=== PATIENT | female | born 1955 | race Caucasian/White ===

== ENCOUNTER → 2016-04-28 | Outpatient (REF) | payer OTHER ==
[~2016-04-28] MED LIST: /ADVA50050; /ADVA50050 INH; /ALEN70TA; /ALEN70TA PO; /CELE20CA PO; /DULO30CA; /DULO30CA PO; /ESCI10TA PO; /ESOM40CA PO; ADVAIR; ADVAIR500; ALBU17IN INH; ALBU83IN; AMBIEN10 PO; AMIT10TA2; AMITRIP100 PO; AMITRIP50 PO; ASP81; ASPI1TAB PO; ASPI81TA3 PO; ATOR40TA PO; AUGM875T27 PO; BACL10TA2; BACLOFEN10 PO; BACTROCREA TOPICALLY; BACTROOINT TOPICALLY; BREO1INH3 INH; CALCARB WITH VIT D; CALCWAF4; CEFTIN500 PO; CELE-19 PO; CENESTIN; CENESTIN PO; COLA100C PO; COLA100C2 PO; CYCL10TA PO; CYMB60CA3 PO; CYMBALTA30 PO; DISDOL; DRIS50002 PO; DRISDOL PO; DRISDOL50; EFFEXORXL3 PO; ESCI10TA2 PO; ESTRACE PV; FERR325T PO; FERROUS325 PO; FLAGYL500 PO; FLEXERIL PO; FOLI1TAB2 PO; FORTAMET PO; FOSA70TA PO; FOSAMAX70; GABA-283 PO; GABA800T PO; GLUC500T; GLUC500T PO; GLUCOPXR5; GLUCULTRA TOPICAL; HIBICLENS TOPICAL; INDA25TAB PO; INDAPAMIDE PO; IRON28TA; JANU100T PO; JANUVIA PO; KEFLEX500 PO; KLON0.5T; KLON0.5T PO; KLONOPIN PO; KLONOPIN05 PO; KLOR20TA PO; LANCMIS; LASIX20 PO; LEVA0.314 INH; LEVA31IN INH; LEVO25TA2 PO; LEVO500T32 PO; LEVO75TA4 PO; LEXAPRO10 PO; LIDODERM TOPICAL; LODINE500 PO; LOZOL25; LOZOL25 PO; LUNESTA3 PO; LYRI200C; LYRI200C PO; LYRICA100 PO; MACROBID PO; MAG-400T7 PO; MAGN400T5 PO; MEDR8TAB; METF850T PO; METH-29 PO; METH4TAB6 PO; MOTRIN400 PO; MULTIVIT; MULTTAB4 PO; NEURONTIN6 PO; NEXI20CA PO; NEXIUM40 PO; NITR100C37 PO; NORT25CA2 PO; NYAM10003 EXT; NYST100024 TOP; NYSTATINP TOP; OXYC10TA12; OXYC1SOL PO; OXYCODONE PO; PERC5TAB8 PO; POTA20TA PO; POTA20TA4 PO; POTASSI20 PO; PRAV40TA PO; PREDNISON5; PULM0.5S INH; PYRI1TAB PO; ROSE HIPS PO; ROZE8TAB PO; ROZE8TAB9 PO; ROZEREM PO; TAMIFLU PO; TAPAZOLE PO; TRAZ100T; TRAZ100T PO; TRAZ100T2 PO; TRAZ100T4 PO; TRAZODON10 PO; TYLE325T5 PO; ULTRAM50 PO; VICODIN PO; VICODIN-ES PO; VIOXX125 PO; VITA500T; VITAMIN C PO; VITAMINC; XANAX0.25 PO; XOPEAER; ZOCOR10 PO; ZOVI5CRE5 TOP; [UNRECOGNIZED DRUG - CODE] INH; [UNRECOGNIZED DRUG - CODE] INH; [UNRECOGNIZED DRUG - CODE] PO; [UNRECOGNIZED DRUG - OTHER] PO; indapamide; medrol PO
[2016-04-28 12:42] LABS: BASO # 0.1 K/mm3 (0.0-0.2); BASO % 0.6 % (0.0-1.0); EOS # 0.3 K/mm3 (0.0-0.50); EOS % 3.1 % (0.0-3.0); LARGE UNSTAINED CELL # 0.2 K/mm3 (0.0-0.4); LARGE UNSTAINED CELL % 1.7 % (0.0-4.0); LYMPH # 2.9 K/mm3 (1.5-4.5); LYMPH % 31.4 % (24.0-44.0); MEAN CORPUSCULAR HEMOGLOBIN 29.4 pg (27.0-33.0); MEAN CORPUSCULAR HGB CONC 32.3 g/dl (32.0-36.5); MONO # 0.4 K/mm3 (0.0-0.8); MONO % 4.5 % (0.0-5.0); NEUTROPHILS # 5.4 K/mm3 (1.8-7.7); NEUTROPHILS % 58.8 % (36.0-66.0); PLATELET COUNT, AUTOMATED 355 k/mm3 (150-450); WHITE BLOOD COUNT 9.2 K/mm3 (4.0-10.0)
[2016-04-28 13:01] LABS: ALBUMIN 3.9 GM/DL (3.2-5.2); ALBUMIN/GLOBULIN RATIO 1.05 (1.00-1.93); ALKALINE PHOSPHATASE 107 U/L (45-117); ALT/SGPT 15 U/L (12-78); ANION GAP 10 MEQ/L (8-16); AST/SGOT 9 U/L (15-37); BILIRUBIN,TOTAL 0.6 MG/DL (0.2-1.0); BLOOD UREA NITROGEN 14 MG/DL (7-18); CARBON DIOXIDE LEVEL 27 MEQ/L (21-32); CHLORIDE LEVEL 101 MEQ/L (98-107); CREATININE FOR GFR 0.89 MG/DL (0.55-1.02); GLOMERULAR FILTRATION RATE > 60.0 (>51); GLUCOSE, FASTING 137 MG/DL (70-105); POTASSIUM SERUM 4.4 MEQ/L (3.5-5.1); SODIUM LEVEL 138 MEQ/L (136-145); TOTAL PROTEIN 7.6 GM/DL (6.4-8.2)
== END ==
LOC: M SFHCPLAZ 11:45
PROVIDERS: ATTEND Family Medicine
DX: N39.0 Urinary tract infection, site not specified (principal)

== ENCOUNTER → 2016-04-29 | Outpatient (REF) | payer OTHER | LOC: M SFHCPLAZ 16:54 | PROVIDERS: ATTEND Family Medicine | DX: N39.0 Urinary tract infection, site not specified (principal) ==

== ENCOUNTER → 2016-05-18 | Outpatient (CLI) | payer OTHER ==
[~2016-05-18] MED LIST changes: +E-Z PAQUE 60% w/v SUSP 355ML BOTTLE As Ordered ONE; +E-Z-GAS II EFFERVESCENT PACKET (SODIUM BICARB./CITRIC ACID/SIMETHICONE) As Ordered ONE; +E-Z-HD 98% w/w 340GM SUSP BTL As Ordered ONE
--- NOTE | 2016-05-18 16:47 | REP ---
UPPER GI, AIR CONTRAST AND SMALL BOWEL FOLLOW THROUGH: The procedure was performed under the direct supervision of Dr. Vinson. The images were reviewed with Dr. Vinson. 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 The intestinal gas pattern is nonspecific. There are surgical clips noted in the right upper quadrant. Liquid barium and gas-producing granules were given in the erect position as well as liquid barium in the prone oblique position in order to perform a double contrast upper GI examination. Additionally, liquid barium was given at the end of the examination in order to perform a small bowel follow through. The oral and pharyngeal stages of deglutition are unremarkable. Esophageal transport is prompt and efficient and there is no esophagitis, stricture or mucosal ring. There is a sliding type hiatal hernia present. There is gastroesophageal reflux demonstrated to the level of the thoracic inlet. The stomach farley are normally outlined. The rugal folds are smooth and regular. There is no gastritis, neoplasm or ulcer disease. The duodenal farley are normally outlined. The mucosal folds are smooth and regular. There is no duodenitis, pancreatitis, peptic ulcer disease or neoplasm. The visualized portion of the proximal small bowel appears normal in course and caliber. The barium column was followed through the small bowel to the level of the terminal ileum. Small bowel transit time is approximately 2 hours and 30 minutes. During fluoroscopy, gentle palpation shows all loops are freely movable and pliable. There are no fixed or angulated loops. The small bowel mucosal pattern is normal in course and caliber. There is no transition to suggest a partial small bowel obstruction. Spot filming of the terminal ileum shows it to be unremarkable. IMPRESSION: There is a sliding type hiatal hernia present. There is gastroesophageal reflux demonstrated to the level of the thoracic inlet. Otherwise, unremarkable double contrast upper GI and small bowel follow through examination. 3 minutes and 14 seconds of fluoroscopy time was utilized for this procedure. Reviewed by SERENA Solorzano 05/19/2016 08:32 AEdited and Signed by Jameel Vinson MD 05/19/2016 06:13 P
== END ==
LOC: M RAD 08:39
PROVIDERS: ATTEND Family Medicine
DX: K21.9 Gastro-esophageal reflux disease without esophagitis (principal); K44.9 Diaphragmatic hernia without obstruction or gangrene

== ENCOUNTER → 2016-06-07 | Outpatient (CLI) | payer OTHER ==
[~2016-06-07] MED LIST changes: -COLA100C PO; +COLA100C3 PO; -E-Z PAQUE 60% w/v SUSP 355ML BOTTLE As Ordered ONE; -E-Z-GAS II EFFERVESCENT PACKET (SODIUM BICARB./CITRIC ACID/SIMETHICONE) As Ordered ONE; -E-Z-HD 98% w/w 340GM SUSP BTL As Ordered ONE
--- NOTE | 2016-06-09 14:38 | SLEEPCENT ---
DATE OF STUDY: 06/09/2016 ORDERING PROVIDER: Andrea Wadsworth DO Nocturnal polysomnography was performed for titration of pressure therapy in this patient with a clinical history of obstructive sleep apnea syndrome confirmed by home testing revealing a respiratory event index of 10. For testing, a Respironics ComfortGel mask of petite size was used. 4 cm of water pressure were applied to the circuit, and the lights were extinguished. 6 hours and 33 minutes of data were reviewed. There were 305 minutes of sleep identified. Sleep latency was prolonged at 54 minutes. Rapid eye movement (REM) sleep was not achieved. Sleep architecture showed poor progression. Overall sleep efficiency was 78.8%. The patient's electrocardiogram (EKG) showed a sinus rhythm with occasional PVCs. Average heart rate 65 beats per minute. Electroencephalogram (EEG) showed coarsening in background. No focal events were identified. Normal waveforms were seen for awake and sleep. Respiratory events were palliated with continuous positive airway pressure (CPAP) at a pressure of +5. Hypoventilatory oxygen desaturations prompted the addition of supplemental oxygen. Best sleep was seen on CPAP at a pressure of 5 with 2 liters of oxygen bled through the system. Some limb activity was noted over the course of the study, as was some snoring. Limb movement arousal index was 2.8, and oxygen saturations were normal with the addition of supplemental oxygen. IMPRESSION: Obstructive sleep apnea syndrome (G47.33). RECOMMENDATION: Nightly use of pressure therapy 5 cm of water with 2 liters of oxygen bled through the circuit.
== END ==
LOC: M SLEEP 20:00
PROVIDERS: ATTEND Internal Medicine Pulmonary Disease
DX: G47.33 Obstructive sleep apnea (adult) (pediatric) (principal)

== ENCOUNTER → 2016-06-15 | Outpatient (CLI) | payer OTHER | LOC: M RAD 11:49 | PROVIDERS: ATTEND Family Medicine | DX: Z53.8 Procedure and treatment not carried out for other reasons (principal) ==

== ENCOUNTER → 2016-09-09 | Outpatient (REF) | payer OTHER ==
[~2016-09-09] MED LIST changes: +ALB2.5NEB INH; +AMBI5TAB PO; -ATOR40TA PO; +ATOR40TA75 PO; -CELE-19 PO; +CELE1CAP4 PO; -COLA100C3 PO; +COLA100C5 PO; +CYCL5TAB PO; +DULO30CA PO; +FERR1TAB8 PO; -FOLI1TAB2 PO; +FOLI1TAB4 PO; +KEFL500C17 PO; +LEVO500T3 PO; -LEVO500T32 PO; +LEXA1TAB PO; +MEDR1TAB PO; +METF850T4 PO; +METH4TAB28 PO; -METH4TAB6 PO; -NITR100C37 PO; +NITR100C39 PO; -NYST100024 TOP; +NYST1POW9 TOP; +OXYC1SOL3 PO; +PYRI1TAB5 PO; +ROSU40TA PO; +ROZE8TAB16 PO; -ROZE8TAB9 PO; +TRAZ-136 PO; -TRAZ100T4 PO; +VOLT1GEL15 TD; +XARE20TA PO
[2016-09-09 13:32] LABS: ALBUMIN 3.7 GM/DL (3.2-5.2); ALBUMIN/GLOBULIN RATIO 0.93 (1.00-1.93); ALKALINE PHOSPHATASE 134 U/L (45-117); ALT/SGPT 30 U/L (12-78); ANION GAP 9 MEQ/L (8-16); AST/SGOT 15 U/L (15-37); BILIRUBIN,TOTAL 0.7 MG/DL (0.2-1.0); BLOOD UREA NITROGEN 13 MG/DL (7-18); CALCIUM LEVEL 9.5 MG/DL (8.8-10.2); CARBON DIOXIDE LEVEL 31 MEQ/L (21-32); CHLORIDE LEVEL 97 MEQ/L (98-107); CHOLESTEROL LEVEL 278 MG/DL (<200); CREATININE FOR GFR 0.84 MG/DL (0.55-1.02); FREE T4 0.98 NG/DL (0.76-1.46); GLOMERULAR FILTRATION RATE > 60.0 (>45); GLUCOSE, FASTING 153 MG/DL (80-110); POTASSIUM SERUM 3.5 MEQ/L (3.5-5.1); SODIUM LEVEL 137 MEQ/L (136-145); TOTAL PROTEIN 7.7 GM/DL (6.4-8.2); TRIGLYCERIDES LEVEL 138 MG/DL (<150)
== END ==
LOC: M SFHCPLAZ 10:02
PROVIDERS: ATTEND Family Medicine
DX: E11.9 Type 2 diabetes mellitus without complications (principal)

== ENCOUNTER → 2016-10-04 | Outpatient (REF) | payer OTHER ==
[2016-10-04 15:56] LABS: URIC ACID 4.2 MG/DL (2.6-6.0)
== END ==
LOC: M LABDRAW1 13:08
PROVIDERS: ATTEND Orthopaedic Surgery
DX: M25.532 Pain in left wrist (principal); M79.642 Pain in left hand

== ENCOUNTER → 2016-10-20 | Outpatient (CLI) | payer OTHER ==
--- NOTE | 2016-10-20 13:12 | REPMRS ---
Patient History The patient states she has not had a clinical breast exam in over a year. Patient is postmenopausal. Family history of breast cancer in 2 sisters at age 50 or over, prostate cancer in paternal uncle at age 50 or over, and unknown cancer in paternal uncle at age 50 or over. Benign excisional biopsy of the left breast, 1988. Digital Mammo Screening Bilat: October 20, 2016 - Exam #: [id number] Bilateral CC and MLO view(s) were taken. Technologist: Brielle Simmons, Technologist Prior study comparison: May 30, 2013, digital mammo diagnostic bilateral performed at [facility]. August 03, 2012, left breast digital mammo diagnostic unilateral performed at [facility]. FINDINGS: The breast tissue is heterogeneously dense. This may lower the sensitivity of mammography. There has been no change in the appearance of the mammogram from the prior studies. There is a moderate amount of residual fibroglandular tissue which is fairly symmetric. There is no interval development of dominant mass, areas of architectural distortion, or clustered microcalcification typical of malignancy. ASSESSMENT: BI-RADS/ACR category 1 mammogram. Negative. Recommendation Routine screening mammogram in 1 year (for women over age 40). This mammogram was interpreted with the aid of an FDA-approved computer-aided dectection system. Electronically Signed By: Mariano Moses MD 10/20/16 [id number]
== END ==
LOC: M RAD 11:13
PROVIDERS: ATTEND Family Medicine
DX: Z12.31 Encounter for screening mammogram for malignant neoplasm of breast (principal); Z80.3 Family history of malignant neoplasm of breast; Z78.0 Asymptomatic menopausal state

== ENCOUNTER 2016-12-28 11:01 | Emergency (ER) | payer OTHER ==
[~2016-12-28] VITALS: Ht 167.6 cm; Wt 102.3 kg
[~2016-12-28 11:01] MED LIST changes: -ALB2.5NEB INH; -AMBI5TAB PO; -CYCL5TAB PO; -DULO30CA PO; -KEFL500C17 PO; -LEXA1TAB PO; -MEDR1TAB PO; -PYRI1TAB5 PO; -ROSU40TA PO; -VOLT1GEL15 TD; -XARE20TA PO
[2016-12-28] MEDS ORDERED: ALB2.5NEB INH (11:29)
[2016-12-28] MEDS ORDERED: AMBI5TAB PO (11:29)
[2016-12-28] MEDS ORDERED: MEDR1TAB PO (11:29)
[2016-12-28] MEDS ORDERED: LEXA1TAB PO (11:29)
[2016-12-28] MEDS ORDERED: VOLT1GEL15 TD (11:29)
[2016-12-28] MEDS ORDERED: CYCL5TAB PO (11:29)
[2016-12-28] MEDS ORDERED: XARE20TA PO (11:29)
[2016-12-28] MEDS ORDERED: ROSU40TA PO (11:29)
--- NOTE | 2016-12-28 12:17 | REP ---
HEAD CT WITHOUT CONTRAST: HISTORY: Trauma. COMPARISON STUDY: November 21, 2015. FINDINGS: Bony calvarium is intact. No skull fractures seen. No significant scalp hematoma is seen. There is minimal vascular calcification and minimal diffuse cerebral atrophy is noted. There is no evidence of intracranial hemorrhage. No mass, infarction, midline shift or extra-axial fluid collection is seen. IMPRESSION: Minimal vascular calcification and diffuse atrophy. No acute intracranial process. Signed by Jameel Vinson MD 12/28/2016 12:51 P
--- NOTE | 2016-12-28 12:20 | REP ---
CT STUDY OF THE CERVICAL SPINE WITHOUT CONTRAST: HISTORY: Trauma. Comparison CT study is from January 02, 2015. TECHNIQUE: Helical scanning is acquired and overlapping 2 mm high resolution axial images were generated and reviewed at bone and soft tissue window settings. Coronal and sagittal multiplanar reformations images are generated. CT FINDINGS: There is no evidence of cervical spine element fracture. No skull base fracture is seen. Cervical vertebral body heights are preserved. Alignment is normal. Facet joints are normally aligned bilaterally at each cervical level on multiplanar re-formations images. There is no evidence of intraspinal or paraspinal hematoma. No extra vertebral abnormality is seen. There is degenerative spondylosis change with degenerative disc disease at C3-4 C5-6 and C6-7 and C7-T1 as before. There is some straightening. A mild dextroconvex curvature is noted. Mild facet hypertrophy is noted. Uncovertebral spurring is seen producing right-sided neural foraminal narrowing at C7-T1, C6-7 and C5-6. Less prominent neural foraminal encroachment is seen on the left at C6-7. IMPRESSION: Degenerative spondylosis changes with multilevel neural foraminal encroachment as above. Otherwise, negative CT study of the cervical spine without contrast. No fracture seen. Signed by Jameel Vinson MD 12/28/2016 12:51 P
--- NOTE | 2016-12-28 12:21 | REP ---
MAXILLOFACIAL CT STUDY WITHOUT CONTRAST: HISTORY: Trauma. TECHNIQUE: Helical scanning is acquired and axial 3 mm images are reformatted. Coronal and sagittal multiplanar reformation images are generated and reviewed. FINDINGS: There is a mucous retention cyst in the floor of the right maxillary sinus measuring approximately 1.9 cm in greatest diameter. Patent nasoantral windows are seen bilaterally. Paranasal sinuses are otherwise intact. No maxillary or other paranasal sinus fracture is seen. The zygomatic arches are intact. Bony orbital margins are intact. No mandibular fracture is seen. There is a prominent area of left malar facial swelling and hematoma formation. No intraorbital hematoma is seen. IMPRESSION: No facial fracture noted. Prominent facial swelling in the left malar soft tissues consistent with hematoma. Signed by Jameel Vinson MD 12/28/2016 12:51 P
[2016-12-28] MEDS ORDERED: ANEXSIA, NORCO 7.5MG/325MG TABLET(HYDROCODONE/APAP) PO ONE (13:45)
[2016-12-28 14:04] LABS: BASO # 0.1 10^3/uL (0.0-0.2); BASO % 0.5 % (0.0-1.0); EOS # 0.3 10^3/uL (0.0-0.50); EOS % 2.2 % (0.0-3.0); IMMATURE GRANULOCYTE % 0.3 % (0-0); LYMPH # 3.7 10^3/uL (1.5-4.5); LYMPH % 29.5 % (24.0-44.0); MEAN CORPUSCULAR HEMOGLOBIN 29.6 pg (27.0-33.0); MEAN CORPUSCULAR HGB CONC 32.8 g/dl (32.0-36.5); MEAN CORPUSCULAR VOLUME 90.1 fl (80.0-96.0); MONO # 0.6 10^3/uL (0.0-0.8); MONO % 4.4 % (0.0-5.0); NEUTROPHILS # 7.9 10^3/uL (1.8-7.7); NEUTROPHILS % 63.1 % (36.0-66.0); PLATELET COUNT, AUTOMATED 373 10^3/uL (150-450); RED CELL DISTRIBUTION WIDTH 13.2 % (11.5-14.5); WHITE BLOOD COUNT 12.5 10^3/uL (4.0-10.0)
[2016-12-28 14:16] LABS: INR 1.57
[2016-12-28 15:30] VITALS: BP 140/60
== END 2016-12-28 15:31 | disposition home or self-care (01) ==
LOC: M ED 11:01
DX: S00.83XA Contusion of other part of head, initial encounter (principal); W01.0XXA Fall on same level from slipping, tripping and stumbling without subsequent striking against object, initial encounter; Y92.018 Other place in single-family (private) house as the place of occurrence of the external cause; Y93.89 Activity, other specified; Y99.8 Other external cause status; E11.9 Type 2 diabetes mellitus without complications; I10 Essential (primary) hypertension; J45.909 Unspecified asthma, uncomplicated; E78.00 Pure hypercholesterolemia, unspecified; M79.7 Fibromyalgia; F41.9 Anxiety disorder, unspecified; F33.9 Major depressive disorder, recurrent, unspecified; Z79.899 Other long term (current) drug therapy; Z79.82 Long term (current) use of aspirin; Z79.01 Long term (current) use of anticoagulants; Z79.84 Long term (current) use of oral hypoglycemic drugs; Z88.1 Allergy status to other antibiotic agents; Z88.2 Allergy status to sulfonamides; Z88.8 Allergy status to other drugs, medicaments and biological substances; Z91.018 Allergy to other foods

== ENCOUNTER → 2016-12-28 | Outpatient (CLI) | payer OTHER ==
[2016-12-28 17:14] LABS: MEAN CORPUSCULAR HEMOGLOBIN 29.5 pg (27.0-33.0); MEAN CORPUSCULAR HGB CONC 32.8 g/dl (32.0-36.5); MEAN CORPUSCULAR VOLUME 89.7 fl (80.0-96.0); RED CELL DISTRIBUTION WIDTH 13.2 % (11.5-14.5); WHITE BLOOD COUNT 12.8 10^3/uL (4.0-10.0)
[2016-12-28 17:18] LABS: CBCMD ORDERED? YES (YES)
[2016-12-28 17:50] LABS: EOSINOPHILS 4 % (0-5)
[2016-12-28 18:21] LABS: ALBUMIN 3.7 GM/DL (3.2-5.2); ALBUMIN/GLOBULIN RATIO 0.93 (1.00-1.93); ALKALINE PHOSPHATASE 107 U/L (45-117); ALT/SGPT 26 U/L (12-78); ANION GAP 10 MEQ/L (8-16); AST/SGOT 13 U/L (15-37); BILIRUBIN,TOTAL 0.8 MG/DL (0.2-1.0); BLOOD UREA NITROGEN 17 MG/DL (7-18); CALCIUM LEVEL 9.4 MG/DL (8.8-10.2); CARBON DIOXIDE LEVEL 26 MEQ/L (21-32); CHLORIDE LEVEL 100 MEQ/L (98-107); CHOLESTEROL LEVEL 121 MG/DL (<200); CREATININE FOR GFR 0.67 MG/DL (0.55-1.02); GLOMERULAR FILTRATION RATE > 60.0 (>45); GLUCOSE, FASTING 119 MG/DL (80-110); POTASSIUM SERUM 4.3 MEQ/L (3.5-5.1); SODIUM LEVEL 136 MEQ/L (136-145); TOTAL PROTEIN 7.7 GM/DL (6.4-8.2); TRIGLYCERIDES LEVEL 126 MG/DL (<150)
== END ==
LOC: M LAB 15:41
PROVIDERS: ATTEND Family Medicine
DX: E78.5 Hyperlipidemia, unspecified (principal); E55.9 Vitamin D deficiency, unspecified

== ENCOUNTER 2016-12-31 12:50 | Emergency (ER) | payer OTHER ==
[~2016-12-31] VITALS: Ht 167.6 cm; Wt 102.3 kg
[~2016-12-31 12:50] MED LIST changes: +ALB2.5NEB INH; +AMBI5TAB PO; +CYCL5TAB PO; +LEXA1TAB PO; +MEDR1TAB PO; +ROSU40TA PO; +VOLT1GEL15 TD; +XARE20TA PO
[2016-12-31] MEDS ORDERED: DULO30CA PO (13:09)
[2016-12-31] MEDS ORDERED: NS 500 ML IV ONE (13:45)
[2016-12-31 14:13] LABS: BASO # 0.1 10^3/uL (0.0-0.2); BASO % 0.5 % (0.0-1.0); EOS # 0.3 10^3/uL (0.0-0.50); IMMATURE GRANULOCYTE % 0.3 % (0-0); LYMPH # 2.8 10^3/uL (1.5-4.5); LYMPH % 25.4 % (24.0-44.0); MEAN CORPUSCULAR HEMOGLOBIN 29.7 pg (27.0-33.0); MEAN CORPUSCULAR HGB CONC 32.3 g/dl (32.0-36.5); MONO # 0.6 10^3/uL (0.0-0.8); MONO % 5.8 % (0.0-5.0); NEUTROPHILS # 7.2 10^3/uL (1.8-7.7); PLATELET COUNT, AUTOMATED 328 10^3/uL (150-450); RED CELL DISTRIBUTION WIDTH 13.2 % (11.5-14.5)
--- NOTE | 2016-12-31 15:08 | REP ---
ABDOMINAL SERIES: Supine and erect views of the abdomen demonstrate no free air and no compelling evidence for obstruction. A single mildly dilated small bowel loop in the upper abdomen may represent a mild focal ileus. There are clips in the right upper quadrant. Phleboliths are seen in the pelvis. There are degenerative changes in the spine. An accompanying view of the chest demonstrates no acute infiltrate. Heart is normal in size. There is mild tortuosity of the thoracic aorta. IMPRESSION: Single mildly dilated small bowel loop in the upper abdomen may represent a focal ileus. No free air or obstruction. Signed by Mariano Moses MD 12/31/2016 05:52 P
[2016-12-31 15:33] LABS: INR 1.85
[2016-12-31 15:45] LABS: ALBUMIN 3.5 GM/DL (3.2-5.2); ALBUMIN/GLOBULIN RATIO 0.83 (1.00-1.93); ALKALINE PHOSPHATASE 93 U/L (45-117); ALT/SGPT 21 U/L (12-78); ANION GAP 10 MEQ/L (8-16); AST/SGOT 9 U/L (7-37); BILIRUBIN,DIRECT 0.2 MG/DL (0.0-0.2); BILIRUBIN,TOTAL 0.7 MG/DL (0.2-1.0); BLOOD UREA NITROGEN 13 MG/DL (7-18); CALCIUM LEVEL 9.1 MG/DL (8.8-10.2); CARBON DIOXIDE LEVEL 25 MEQ/L (21-32); CHLORIDE LEVEL 99 MEQ/L (98-107); GLOMERULAR FILTRATION RATE > 60.0 (>45); GLUCOSE, FASTING 100 MG/DL (80-110); POTASSIUM SERUM 4.3 MEQ/L (3.5-5.1); SODIUM LEVEL 134 MEQ/L (136-145); TOTAL PROTEIN 7.7 GM/DL (6.4-8.2)
[2016-12-31] MEDS ORDERED: cefTRIAXone SOD 1 GM in D5W 50 ML IV ONE (17:00)
[2016-12-31] MEDS ORDERED: NORCO, ANEXSIA 5/325MG TABLET (HYDROcodone/ACETAMINOPHEN) PO ONE (17:00)
[2016-12-31] MEDS ORDERED: PHENAZOPYRIDINE 100 MG TAB PO ONE (17:00)
[2016-12-31] MEDS ORDERED: KEFL500C17 PO (17:23)
[2016-12-31] MEDS ORDERED: PYRI1TAB5 PO (17:23)
[2016-12-31 18:15] VITALS: BP 107/69
== END 2016-12-31 18:18 | disposition home or self-care (01) ==
LOC: M ED 12:50
DX: N30.91 Cystitis, unspecified with hematuria (principal); J45.909 Unspecified asthma, uncomplicated; Z79.899 Other long term (current) drug therapy; Z79.51 Long term (current) use of inhaled steroids; Z79.82 Long term (current) use of aspirin; Z88.8 Allergy status to other drugs, medicaments and biological substances; Z88.2 Allergy status to sulfonamides; Z88.1 Allergy status to other antibiotic agents; Z91.018 Allergy to other foods
CPT/HCPCS: 74022; 80048; 80076; 81001; 83690; 85025; 85610; 85730; 87088; 87186; 94760; 96365; 99284; J0696

== ENCOUNTER → 2017-01-18 | Outpatient (CLI) | payer OTHER ==
[~2017-01-18] MED LIST changes: +DULO30CA PO; +ISOVUE-370 76% 100ML VIAL (Q9967) As Ordered ONE; +KEFL500C17 PO; +PYRI1TAB5 PO
--- NOTE | 2017-01-18 11:26 | REP ---
Clinical: Gross hematuria. Technique: Axial precontrast, contrast enhanced, and delayed images of the abdomen and pelvis using 100 ml Isovue 370 intravenous contrast material with coronal and sagittal re-formations. Comparison: 11/21/2015. Findings: Evaluation of the urinary tract system demonstrates a 2 cm simple right renal cyst. No evidence for hydroureteronephrosis, perinephric stranding, intrarenal or obstructing ureteral calculi. Ureters and bladder are normal in appearance. Liver, spleen, pancreas, and bilateral adrenal glands are normal. The patient is status post cholecystectomy. The enteric system is without obstruction or acute inflammatory process. Normal terminal ileum identified in the right lower quadrant. Few scattered sigmoid diverticula noted without acute diverticulitis. Small fat containing periumbilical hernia is nonspecific and stable. Pelvis demonstrates normal bladder and evidence for prior hysterectomy. No ascites. No adenopathy. No free air. Abdominal aorta and vasculature without aneurysm or dissection. Musculoskeletal structures demonstrate age-related degenerative changes primarily involving the thoracic and lumbosacral spine without focal osseous abnormality. Lung bases are clear. Visualized heart and pericardium normal. Impression: 1. 2 cm simple right renal cyst. Otherwise unremarkable evaluation of the urinary tract system. 2. Few scattered sigmoid diverticula without acute diverticulitis. 3. Degenerative changes to the thoracolumbar spine. Signed by Jamar Nichols MD 01/18/2017 11:18 A
== END ==
LOC: M RAD 08:02
PROVIDERS: ATTEND Family Medicine
DX: R31.0 Gross hematuria (principal)
CPT/HCPCS: 74178; Q9967

== ENCOUNTER 2017-02-23 16:13 | Emergency (ER) | payer OTHER ==
[2017-02-23] MEDS: GI COCKTAIL 50ML BTL(HYOSCYAMINE/MAALOX/LIDOCAINE VISCOUS)(1:3:1) PO (17:15)
[2017-02-23] MEDS: NS 1,000 ML IV (17:31)
[2017-02-23] MEDS: ASPIRIN 81 MG CHEW TABLET PO (17:31)
[2017-02-23 17:53] LABS: BASO % 0.5 % (0.0-1.0); EOS # 0.3 10^3/uL (0.0-0.50); EOS % 3.7 % (0.0-3.0); IMMATURE GRANULOCYTE % 0.3 % (0-0); LYMPH # 2.5 10^3/uL (1.5-4.5); LYMPH % 31.5 % (24.0-44.0); MEAN CORPUSCULAR HEMOGLOBIN 29.8 pg (27.0-33.0); MEAN CORPUSCULAR HGB CONC 33.1 g/dl (32.0-36.5); MEAN CORPUSCULAR VOLUME 89.8 fl (80.0-96.0); MONO # 0.5 10^3/uL (0.0-0.8); MONO % 5.7 % (0.0-5.0); NEUTROPHILS # 4.6 10^3/uL (1.8-7.7); NEUTROPHILS % 58.3 % (36.0-66.0); PLATELET COUNT, AUTOMATED 321 10^3/uL (150-450); RED CELL DISTRIBUTION WIDTH 13.1 % (11.5-14.5); WHITE BLOOD COUNT 7.8 10^3/uL (4.0-10.0)
[2017-02-23 18:03] LABS: INR 1.15
[2017-02-23] MEDS: NITROGLYCERIN 0.4 MG SUBL TABLET SL (18:30)
[2017-02-23 18:39] LABS: ALKALINE PHOSPHATASE 101 U/L (45-117); ALT/SGPT 20 U/L (12-78); ANION GAP 5 MEQ/L (8-16); AST/SGOT 16 U/L (7-37); BILIRUBIN,DIRECT 0.2 MG/DL (0.0-0.2); BILIRUBIN,TOTAL 0.7 MG/DL (0.2-1.0); BLOOD UREA NITROGEN 7 MG/DL (7-18); CALCIUM LEVEL 8.8 MG/DL (8.8-10.2); CARBON DIOXIDE LEVEL 31 MEQ/L (21-32); CHLORIDE LEVEL 100 MEQ/L (98-107); CREATININE FOR GFR 0.63 MG/DL (0.55-1.02); GLOMERULAR FILTRATION RATE > 60.0 (>45); GLUCOSE, FASTING 151 MG/DL (80-110); POTASSIUM SERUM 4.2 MEQ/L (3.5-5.1); SODIUM LEVEL 136 MEQ/L (136-145); TOTAL PROTEIN 7.3 GM/DL (6.4-8.2)
[2017-02-23] MEDS: MORPHINE 2 MG/ML 1ML SYRINGE IV (18:44)
== END 2017-02-23 19:38 | disposition home or self-care (01) ==
LOC: M ED 16:13
DX: R07.89 Other chest pain (principal)
CPT/HCPCS: 71010

== ENCOUNTER 2017-03-05 13:24 | Emergency (ER) | payer OTHER ==
[2017-03-05 15:25] LABS: BASO % 0.4 % (0.0-1.0); EOS # 0.4 10^3/uL (0.0-0.50); EOS % 4.4 % (0.0-3.0); IMMATURE GRANULOCYTE % 0.3 % (0-0); LYMPH # 2.7 10^3/uL (1.5-4.5); LYMPH % 30.6 % (24.0-44.0); MEAN CORPUSCULAR HEMOGLOBIN 28.9 pg (27.0-33.0); MEAN CORPUSCULAR HGB CONC 32.8 g/dl (32.0-36.5); MEAN CORPUSCULAR VOLUME 88.3 fl (80.0-96.0); MONO # 0.6 10^3/uL (0.0-0.8); MONO % 6.4 % (0.0-5.0); NEUTROPHILS # 5.2 10^3/uL (1.8-7.7); NEUTROPHILS % 57.9 % (36.0-66.0); PLATELET COUNT, AUTOMATED 335 10^3/uL (150-450); RED CELL DISTRIBUTION WIDTH 13.1 % (11.5-14.5); WHITE BLOOD COUNT 8.9 10^3/uL (4.0-10.0)
[2017-03-05] MEDS: NS 1,000 ML IV (15:50)
[2017-03-05 16:00] LABS: ALBUMIN 3.3 GM/DL (3.2-5.2); ALBUMIN/GLOBULIN RATIO 0.89 (1.00-1.93); ALKALINE PHOSPHATASE 91 U/L (45-117); ALT/SGPT 13 U/L (12-78); ANION GAP 6 MEQ/L (8-16); AST/SGOT 15 U/L (7-37); BILIRUBIN,DIRECT 0.2 MG/DL (0.0-0.2); BLOOD UREA NITROGEN 9 MG/DL (7-18); CALCIUM LEVEL 8.7 MG/DL (8.8-10.2); CARBON DIOXIDE LEVEL 33 MEQ/L (21-32); CHLORIDE LEVEL 97 MEQ/L (98-107); CREATININE FOR GFR 0.51 MG/DL (0.55-1.02); GLOMERULAR FILTRATION RATE > 60.0 (>45); GLUCOSE, FASTING 90 MG/DL (80-110); POTASSIUM SERUM 3.8 MEQ/L (3.5-5.1); SODIUM LEVEL 136 MEQ/L (136-145)
[2017-03-05 16:08] LABS: MICROSCOPIC INDICATED? MAN YES (NO)
[2017-03-05 16:10] LABS: BACTERIA, URINE LARGE AMOUNT; HYALINE CAST, URINE NONE SEEN /lpf (0-1); MICROSCOPIC EXAM PERFORMED; RBC, URINE TNTC /hpf (0-3); SQUAMOUS EPITHELIAL CELL URINE SMALL AMOUNT /hpf (SMALL AMT); WBC, URINE 30-40 /hpf (0-3)
[2017-03-05] MEDS: ACETAMINOPHEN TAB 650MG DOSE (2X325MG) PO (18:00)
== END 2017-03-05 18:38 | disposition home or self-care (01) ==
LOC: M ED 13:24
DX: S70.02XA Contusion of left hip, initial encounter (principal); W19.XXXA Unspecified fall, initial encounter; Y92.89 Other specified places as the place of occurrence of the external cause; Y93.89 Activity, other specified; Y99.8 Other external cause status; N93.8 Other specified abnormal uterine and vaginal bleeding; G89.4 Chronic pain syndrome; E11.9 Type 2 diabetes mellitus without complications; I10 Essential (primary) hypertension; F41.9 Anxiety disorder, unspecified; F33.9 Major depressive disorder, recurrent, unspecified; K74.60 Unspecified cirrhosis of liver; M79.7 Fibromyalgia; K58.9 Irritable bowel syndrome, unspecified; E78.00 Pure hypercholesterolemia, unspecified; Z79.899 Other long term (current) drug therapy; Z79.01 Long term (current) use of anticoagulants; Z79.82 Long term (current) use of aspirin; Z79.51 Long term (current) use of inhaled steroids; Z79.52 Long term (current) use of systemic steroids; Z88.8 Allergy status to other drugs, medicaments and biological substances; Z88.2 Allergy status to sulfonamides; Z88.1 Allergy status to other antibiotic agents; Z91.018 Allergy to other foods; Z86.711 Personal history of pulmonary embolism; Z87.448 Personal history of other diseases of urinary system; Z98.890 Other specified postprocedural states; Z86.79 Personal history of other diseases of the circulatory system
CPT/HCPCS: 71020

== ENCOUNTER → 2017-04-06 | Outpatient (REF) | payer OTHER ==
[2017-04-06 15:58] LABS: BASO % 0.5 % (0.0-1.0); EOS # 0.2 10^3/uL (0.0-0.50); EOS % 1.9 % (0.0-3.0); HEMOGLOBIN 12.6 g/dl (12.0-16.0); IMMATURE GRANULOCYTE % 0.4 % (0-0); LYMPH # 2.6 10^3/uL (1.5-4.5); MEAN CORPUSCULAR HEMOGLOBIN 28.9 pg (27.0-33.0); MEAN CORPUSCULAR HGB CONC 33.2 g/dl (32.0-36.5); MEAN CORPUSCULAR VOLUME 87.2 fl (80.0-96.0); MONO # 0.4 10^3/uL (0.0-0.8); MONO % 4.6 % (0.0-5.0); NEUTROPHILS # 5.4 10^3/uL (1.8-7.7); NEUTROPHILS % 62.6 % (36.0-66.0); PLATELET COUNT, AUTOMATED 357 10^3/uL (150-450); RED BLOOD COUNT 4.36 10^6/uL (4.00-5.40); RED CELL DISTRIBUTION WIDTH 13.5 % (11.5-14.5); RETIC HEMOGLOBIN EQUIVALENT 33.5 pg (24-36); RETICULOCYTE # 90.3 10^9/L (17-77); RETICULOCYTE % 2.1 % (0.5-1.5); WHITE BLOOD COUNT 8.6 10^3/uL (4.0-10.0)
[2017-04-06 16:24] LABS: ALBUMIN 3.9 GM/DL (3.2-5.2); ALBUMIN/GLOBULIN RATIO 1.05 (1.00-1.93); ALKALINE PHOSPHATASE 90 U/L (45-117); ALT/SGPT 18 U/L (12-78); ANION GAP 12 MEQ/L (8-16); AST/SGOT 18 U/L (7-37); BILIRUBIN,TOTAL 0.7 MG/DL (0.2-1.0); BLOOD UREA NITROGEN 10 MG/DL (7-18); C REACTIVE PROTEIN QUANTITATIV 0.32 MG/DL (0.00-0.30); CALCIUM LEVEL 9.8 MG/DL (8.8-10.2); CARBON DIOXIDE LEVEL 24 MEQ/L (21-32); CHLORIDE LEVEL 102 MEQ/L (98-107); CHOLESTEROL LEVEL 96 MG/DL (<200); CHOLESTEROL RISK RATIO 1.959 (<5); CPK CREATINE PHOSPHOKINASE 94 U/L (26-192); CREATININE FOR GFR 0.75 MG/DL (0.55-1.30); GLOMERULAR FILTRATION RATE > 60.0 (>45); GLUCOSE, FASTING 116 MG/DL (70-100); HDL CHOLESTEROL 49 MG/DL (>40); LDL CHOLESTEROL 20.8 MG/DL (<100); MAGNESIUM LEVEL 1.6 MG/DL (1.8-2.4); NON-HDL-C 47 MG/DL; POTASSIUM SERUM 3.8 MEQ/L (3.5-5.1); SODIUM LEVEL 138 MEQ/L (136-145); TOTAL PROTEIN 7.6 GM/DL (6.4-8.2); TRIGLYCERIDES LEVEL 131 MG/DL (<150)
[2017-04-06 16:31] LABS: ESTIMATED AVERAGE GLUCOSE 163 MG/DL (60-110); HEMOGLOBIN A1c 7.3 %
== END ==
LOC: M SFHCPLAZ 11:51
DX: E03.9 Hypothyroidism, unspecified (principal); E78.2 Mixed hyperlipidemia

== ENCOUNTER 2017-04-08 14:15 | Observation (INO) | payer OTHER ==
[2017-04-08 15:48] LABS: BASO # 0.1 10^3/uL (0.0-0.2); BASO % 0.6 % (0.0-1.0); EOS # 0.1 10^3/uL (0.0-0.50); EOS % 1.7 % (0.0-3.0); HEMATOCRIT 37.4 % (36.0-47.0); HEMOGLOBIN 12.4 g/dl (12.0-16.0); IMMATURE GRANULOCYTE % 0.2 % (0-0); LYMPH # 2.8 10^3/uL (1.5-4.5); LYMPH % 34.3 % (24.0-44.0); MEAN CORPUSCULAR HEMOGLOBIN 28.8 pg (27.0-33.0); MEAN CORPUSCULAR HGB CONC 33.2 g/dl (32.0-36.5); MEAN CORPUSCULAR VOLUME 86.8 fl (80.0-96.0); MONO # 0.5 10^3/uL (0.0-0.8); MONO % 6.4 % (0.0-5.0); NEUTROPHILS # 4.5 10^3/uL (1.8-7.7); NEUTROPHILS % 56.8 % (36.0-66.0); PLATELET COUNT, AUTOMATED 315 10^3/uL (150-450); RED BLOOD COUNT 4.31 10^6/uL (4.00-5.40); RED CELL DISTRIBUTION WIDTH 13.4 % (11.5-14.5)
[2017-04-08 15:59] LABS: INR 1.15; PROTHROMBIN TIME 14.9 SECONDS (12.4-14.5)
[2017-04-08 16:11] LABS: ALBUMIN 3.7 GM/DL (3.2-5.2); ALBUMIN/GLOBULIN RATIO 0.93 (1.00-1.93); ALKALINE PHOSPHATASE 88 U/L (45-117); ALT/SGPT 21 U/L (12-78); ANION GAP 9 MEQ/L (8-16); AST/SGOT 24 U/L (7-37); BILIRUBIN,DIRECT 0.1 MG/DL (0.0-0.2); BILIRUBIN,TOTAL 0.6 MG/DL (0.2-1.0); BLOOD UREA NITROGEN 13 MG/DL (7-18); CALCIUM LEVEL 9.5 MG/DL (8.8-10.2); CARBON DIOXIDE LEVEL 31 MEQ/L (21-32); CHLORIDE LEVEL 95 MEQ/L (98-107); CREATININE FOR GFR 0.68 MG/DL (0.55-1.30); GLOMERULAR FILTRATION RATE > 60.0 (>45); GLUCOSE, FASTING 129 MG/DL (70-100); LIPASE 68 U/L (73-393); POTASSIUM SERUM 3.1 MEQ/L (3.5-5.1); SODIUM LEVEL 135 MEQ/L (136-145); TOTAL PROTEIN 7.7 GM/DL (6.4-8.2)
[2017-04-08] MEDS ORDERED: ONDANSETRON 4MG/2ML VIAL (J2405) As Ordered ×2 (16:15)
[2017-04-08] MEDS: POTASSIUM CHLORIDE 10 MEQ SR TABLET PO ×2 (16:16)
[2017-04-08] MEDS: MORPHINE 4 MG/ML 1ML VIAL (J2270) IV ×2 (16:16)
[2017-04-08] MEDS: ONDANSETRON 4MG/2ML VIAL (J2405) IV ×2 (16:18)
[2017-04-08] MEDS ORDERED: GLUCAGON FOR INJ 1 MG VIAL (J1610) SC ×2 (18:15)
[2017-04-08] MEDS ORDERED: DEXTROSE 50% 50 ML SYRINGE IV ×2 (18:15)
[2017-04-08] MEDS ORDERED: GLUCOSE 4 GM CHEW TABLET PO ×2 (18:15)
[2017-04-08] MEDS ORDERED: ALBUTEROL SULFATE 2.5 MG/0.5 ML INH NEB SOLN INH ×2 (18:15)
[2017-04-08] MEDS ORDERED: NYSTATIN 100,000 UNITS/GM TOPICAL PWD 15 GM TOP ×2 (18:15)
[2017-04-08] MEDS: RIVAROXABAN 20 MG TAB (XARELTO) PO ×2 (19:10)
[2017-04-08] MEDS: PERCOCET 5MG/325MG TAB PO ×4 (19:11→23:15)
[2017-04-08 19:20] LABS: THYROID STIMULATING HORMONE 0.925 uIU/ML (0.358-3.740)
[2017-04-08] MEDS: ASPIRIN 81 MG ENTERIC TAB PO ×2 (19:24)
[2017-04-08] MEDS: ESCITALOPRAM OXALATE 10 MG TAB (LEXAPRO) PO ×2 (19:24)
[2017-04-08] MEDS: clonazePAM 0.5 MG TAB PO ×2 (23:16)
[2017-04-08] MEDS: DOCUSATE SODIUM 100 MG CAP PO ×2 (23:16)
[2017-04-08] MEDS: zolPIDEM TARTRATE 5 MG TAB PO ×2 (23:16)
[2017-04-08] MEDS: GABAPENTIN 400 MG CAP PO ×2 (23:17)
[2017-04-08] MEDS: MAGNESIUM OXIDE 400 MG TAB (MAG-OX) PO ×2 (23:17)
[2017-04-08] MEDS: DULoxetine 30 MG CAP (CYMBALTA) PO ×2 (23:17)
[2017-04-08] MEDS: CYCLOBENZAPRINE 10 MG TAB PO ×2 (23:17)
[2017-04-08] MEDS: HumaLOG INSULIN (NovoLOG) PER UNIT SC ×2 (23:23)
[2017-04-09] MEDS: RAMELTEON 8 MG TAB (ROZEREM) PO ×4 (00:07→21:16)
[2017-04-09] MEDS: NORTRIPTYLINE 25 MG CAP PO ×4 (00:08→21:15)
[2017-04-09] MEDS: CYCLOBENZAPRINE 5MG TABLET PO ×8 (00:08→21:15)
[2017-04-09] MEDS: LEVOTHYROXINE 75MCG TABLET (0.075MG) PO ×2 (05:42)
[2017-04-09] MEDS: PERCOCET 5MG/325MG TAB PO ×2 (05:44)
[2017-04-09 06:00] LABS: BEDSIDE GLUCOSE 173 MG/DL (80-115)
[2017-04-09 06:19] LABS: BASO % 0.7 % (0.0-1.0); EOS # 0.2 10^3/uL (0.0-0.50); EOS % 4.3 % (0.0-3.0); HEMATOCRIT 35.6 % (36.0-47.0); HEMOGLOBIN 11.7 g/dl (12.0-16.0); IMMATURE GRANULOCYTE % 0.2 % (0-0); LYMPH # 2.7 10^3/uL (1.5-4.5); LYMPH % 50.1 % (24.0-44.0); MEAN CORPUSCULAR HGB CONC 32.9 g/dl (32.0-36.5); MEAN CORPUSCULAR VOLUME 88.3 fl (80.0-96.0); MONO # 0.4 10^3/uL (0.0-0.8); MONO % 8.1 % (0.0-5.0); NEUTROPHILS % 36.6 % (36.0-66.0); PLATELET COUNT, AUTOMATED 304 10^3/uL (150-450); RED BLOOD COUNT 4.03 10^6/uL (4.00-5.40); RED CELL DISTRIBUTION WIDTH 13.5 % (11.5-14.5); WHITE BLOOD COUNT 5.4 10^3/uL (4.0-10.0)
[2017-04-09 06:41] LABS: ANION GAP 9 MEQ/L (8-16); BLOOD UREA NITROGEN 14 MG/DL (7-18); CALCIUM LEVEL 9.3 MG/DL (8.8-10.2); CARBON DIOXIDE LEVEL 32 MEQ/L (21-32); CHLORIDE LEVEL 99 MEQ/L (98-107); CREATININE FOR GFR 0.69 MG/DL (0.55-1.30); GLOMERULAR FILTRATION RATE > 60.0 (>45); GLUCOSE, FASTING 188 MG/DL (70-100); POTASSIUM SERUM 3.4 MEQ/L (3.5-5.1); SODIUM LEVEL 140 MEQ/L (136-145)
[2017-04-09] MEDS: HumaLOG INSULIN (NovoLOG) PER UNIT SC ×8 (08:18→20:56)
[2017-04-09] MEDS: ASPIRIN 81 MG ENTERIC TAB PO ×2 (08:19)
[2017-04-09] MEDS: FOLIC ACID 1 MG TAB PO ×2 (08:19)
[2017-04-09] MEDS: INDAPAMIDE 1.25MG TABLET PO ×2 (08:19)
[2017-04-09] MEDS: SITagliptin 50 MG TAB (JANUVIA) PO ×2 (08:19)
[2017-04-09] MEDS: DULoxetine 30 MG CAP (CYMBALTA) PO ×4 (08:19→21:16)
[2017-04-09] MEDS: methylPREDNISolone 4 MG TAB PO ×2 (08:20)
[2017-04-09] MEDS: GABAPENTIN 400 MG CAP PO ×6 (08:20→21:15)
[2017-04-09] MEDS: POTASSIUM CHLORIDE 10 MEQ SR TABLET PO ×4 (08:20→21:16)
[2017-04-09] MEDS: ROSUVASTATIN 10 MG TAB (CRESTOR) PO ×2 (08:20)
[2017-04-09] MEDS: PANTOPRAZOLE 40MG TAB (PROTONIX) PO ×2 (08:20)
[2017-04-09] MEDS: MAGNESIUM OXIDE 400 MG TAB (MAG-OX) PO ×4 (08:21→22:35)
[2017-04-09] MEDS: CYCLOBENZAPRINE 10 MG TAB PO ×6 (08:21→21:15)
[2017-04-09] MEDS: DOCUSATE SODIUM 100 MG CAP PO ×4 (08:21→21:15)
[2017-04-09] MEDS: ESCITALOPRAM OXALATE 10 MG TAB (LEXAPRO) PO ×2 (08:21)
[2017-04-09] MEDS: clonazePAM 0.5 MG TAB PO ×4 (08:21→21:16)
[2017-04-09] MEDS ORDERED: ENOXAPARIN 40 MG/0.4 ML SYRINGE (J1650) SC ×2 (09:00)
[2017-04-09] MEDS ORDERED: NALOXONE INJ 0.4 MG/1 ML VIAL (J2310) As Ordered ×2 (12:20)
[2017-04-09] MEDS: NALOXONE INJ 0.4 MG/1 ML VIAL (J2310) IV ×2 (12:22)
[2017-04-09] MEDS ORDERED: NALOXONE INJ 0.4 MG/1 ML VIAL (J2310) IV ×2 (12:30)
[2017-04-09 13:34] LABS: AMPHETAMINES URINE REFLEX NEGATIVE (NEGATIVE); BARBITURATES URINE REFLEX NEGATIVE (NEGATIVE); BENZODIAZEPINES URINE REFLEX NEGATIVE (NEGATIVE); CANNABINOIDS URINE REFLEX NEGATIVE (NEGATIVE); COCAINE METABOLITE URINE REFLE NEGATIVE (NEGATIVE); METHADONE URINE REFLEX NEGATIVE (NEGATIVE); PHENCYCLIDINE URINE REFLEX NEGATIVE (NEGATIVE)
[2017-04-09 13:35] LABS: OPIATES URINE REFLEX POSITIVE (NEGATIVE)
[2017-04-09] MEDS: RIVAROXABAN 20 MG TAB (XARELTO) PO ×2 (17:15)
[2017-04-09 20:46] LABS: BEDSIDE GLUCOSE 146 MG/DL (80-115)
[2017-04-09] MEDS: zolPIDEM TARTRATE 5 MG TAB PO ×2 (22:35)
[2017-04-10] MEDS: LEVOTHYROXINE 75MCG TABLET (0.075MG) PO ×2 (05:39)
[2017-04-10 06:23] LABS: BASO % 0.6 % (0.0-1.0); EOS # 0.3 10^3/uL (0.0-0.50); EOS % 5.3 % (0.0-3.0); HEMATOCRIT 32.3 % (36.0-47.0); HEMOGLOBIN 10.5 g/dl (12.0-16.0); IMMATURE GRANULOCYTE % 0.3 % (0-0); LYMPH # 2.4 10^3/uL (1.5-4.5); MEAN CORPUSCULAR HEMOGLOBIN 28.6 pg (27.0-33.0); MEAN CORPUSCULAR HGB CONC 32.5 g/dl (32.0-36.5); MONO # 0.5 10^3/uL (0.0-0.8); MONO % 8.1 % (0.0-5.0); NEUTROPHILS # 2.9 10^3/uL (1.8-7.7); NEUTROPHILS % 46.7 % (36.0-66.0); PLATELET COUNT, AUTOMATED 290 10^3/uL (150-450); RED BLOOD COUNT 3.67 10^6/uL (4.00-5.40); RED CELL DISTRIBUTION WIDTH 13.6 % (11.5-14.5); WHITE BLOOD COUNT 6.3 10^3/uL (4.0-10.0)
[2017-04-10 06:41] LABS: ANION GAP 4 MEQ/L (8-16); BLOOD UREA NITROGEN 12 MG/DL (7-18); CALCIUM LEVEL 8.8 MG/DL (8.8-10.2); CARBON DIOXIDE LEVEL 34 MEQ/L (21-32); CHLORIDE LEVEL 99 MEQ/L (98-107); CREATININE FOR GFR 0.71 MG/DL (0.55-1.30); GLOMERULAR FILTRATION RATE > 60.0 (>45); GLUCOSE, FASTING 228 MG/DL (70-100); POTASSIUM SERUM 3.2 MEQ/L (3.5-5.1); SODIUM LEVEL 137 MEQ/L (136-145)
[2017-04-10] MEDS: SITagliptin 50 MG TAB (JANUVIA) PO ×2 (07:42)
[2017-04-10] MEDS: HumaLOG INSULIN (NovoLOG) PER UNIT SC ×4 (07:42→12:41)
[2017-04-10] MEDS: CYCLOBENZAPRINE 5MG TABLET PO ×2 (09:11)
[2017-04-10] MEDS: POTASSIUM CHLORIDE 10 MEQ SR TABLET PO ×4 (09:11→12:41)
[2017-04-10] MEDS: CYCLOBENZAPRINE 10 MG TAB PO ×2 (09:11)
[2017-04-10] MEDS: INDAPAMIDE 1.25MG TABLET PO ×2 (09:12)
[2017-04-10] MEDS: GABAPENTIN 400 MG CAP PO ×2 (09:12)
[2017-04-10] MEDS: ASPIRIN 81 MG ENTERIC TAB PO ×2 (09:12)
[2017-04-10] MEDS: MAGNESIUM OXIDE 400 MG TAB (MAG-OX) PO ×2 (09:12)
[2017-04-10] MEDS: PANTOPRAZOLE 40MG TAB (PROTONIX) PO ×2 (09:12)
[2017-04-10] MEDS: DULoxetine 30 MG CAP (CYMBALTA) PO ×2 (09:12)
[2017-04-10] MEDS: ROSUVASTATIN 10 MG TAB (CRESTOR) PO ×2 (09:12)
[2017-04-10] MEDS: ESCITALOPRAM OXALATE 10 MG TAB (LEXAPRO) PO ×2 (09:12)
[2017-04-10] MEDS: FOLIC ACID 1 MG TAB PO ×2 (09:12)
[2017-04-10] MEDS: DOCUSATE SODIUM 100 MG CAP PO ×2 (09:12)
[2017-04-10] MEDS: clonazePAM 0.5 MG TAB PO ×2 (09:13)
[2017-04-10 11:59] LABS: BEDSIDE GLUCOSE 183 MG/DL (80-115)
[2017-04-10 11:59] LABS: BEDSIDE GLUCOSE 232 MG/DL (80-115)
[2017-04-10 11:59] LABS: BEDSIDE GLUCOSE 160 MG/DL (80-115)
[2017-04-10 16:58] LABS: BEDSIDE GLUCOSE 191 MG/DL (80-115)
[2017-04-21 00:07] LABS: OXYCODONE SCREEN ++POSITIVE++ ng/mL (Cutoff:5); Oxycodones Confirmation Positive (.)
[2017-04-21 14:17] LABS: Codeine Comment: (.); GC Morphine 766 ng/mL (Cutoff=200); Morphine Positive (.); Opiates Positive (.)
== END 2017-04-10 14:30 | disposition home or self-care (01) ==
LOC: M ED 14:15 → M ED INP 19:23 → M MSPAV 22:35
DX: R29.6 Repeated falls (principal); R41.82 Altered mental status, unspecified; M79.601 Pain in right arm; M79.604 Pain in right leg; R51 Headache; E87.6 Hypokalemia; G89.4 Chronic pain syndrome; E11.9 Type 2 diabetes mellitus without complications; Z86.711 Personal history of pulmonary embolism; J45.50 Severe persistent asthma, uncomplicated; F32.9 Major depressive disorder, single episode, unspecified; E03.9 Hypothyroidism, unspecified; I11.0 Hypertensive heart disease with heart failure; I50.30 Unspecified diastolic (congestive) heart failure; M50.30 Other cervical disc degeneration, unspecified cervical region; M51.35 Other intervertebral disc degeneration, thoracolumbar region; K76.0 Fatty (change of) liver, not elsewhere classified; F41.0 Panic disorder [episodic paroxysmal anxiety]; M81.0 Age-related osteoporosis without current pathological fracture; E55.9 Vitamin D deficiency, unspecified; K21.9 Gastro-esophageal reflux disease without esophagitis; E66.01 Morbid (severe) obesity due to excess calories; G25.0 Essential tremor; M17.0 Bilateral primary osteoarthritis of knee; D50.9 Iron deficiency anemia, unspecified; G47.33 Obstructive sleep apnea (adult) (pediatric); N39.41 Urge incontinence; G47.00 Insomnia, unspecified; Z79.899 Other long term (current) drug therapy; Z79.891 Long term (current) use of opiate analgesic; Z79.51 Long term (current) use of inhaled steroids; Z79.82 Long term (current) use of aspirin; Z79.84 Long term (current) use of oral hypoglycemic drugs; Z79.01 Long term (current) use of anticoagulants; Z91.018 Allergy to other foods; Z88.2 Allergy status to sulfonamides; Z88.8 Allergy status to other drugs, medicaments and biological substances
CPT/HCPCS: J2270; J2405

== ENCOUNTER → 2017-04-08 | Outpatient (REF) | payer OTHER ==
[2017-04-08 19:24] LABS: APPEARANCE, URINE CLOUDY (CLEAR); BACTERIA, URINE AUTO 1+ (NEGATIVE); BILIRUBIN, URINE AUTO NEGATIVE (NEGATIVE); BLOOD, URINE BLOOD 1+ (NEGATIVE); COLOR, URINE YELLOW (YELLOW); GLUCOSE, URINE (UA) AUTO NEGATIVE (NEGATIVE); KETONE, URINE AUTO NEGATIVE (NEGATIVE); LEUKOCYTE ESTERASE, URINE AUTO 3+ (NEGATIVE); MUCUS, URINE SMALL (NEGATIVE); NITRITE, URINE AUTO POSITIVE (NEGATIVE); PROTEIN, URINE AUTO 1+ mg/dL (NEGATIVE); RBC, URINE AUTO 14 /HPF (0-3); SPECIFIC GRAVITY URINE AUTO 1.018 (1.002-1.035); SQUAMOUS EPITHELIAL CELL UR AU 3 /HPF (0-6); UROBILINOGEN, URINE AUTO 0.2 mg/dL (0.0-2.0); WBC, URINE AUTO TNTC /HPF (0-3)
== END ==
LOC: M SFHCPLAZ 17:18
DX: N39.0 Urinary tract infection, site not specified (principal)

== ENCOUNTER → 2017-04-13 | Outpatient (CLI) | payer OTHER | LOC: M RAD 13:37 | DX: I26.99 Other pulmonary embolism without acute cor pulmonale (principal) | CPT/HCPCS: 93970 ==

== ENCOUNTER → 2017-05-06 | Outpatient (REF) | payer OTHER ==
[2017-05-06 15:55] LABS: BASO % 0.3 % (0.0-1.0); EOS # 0.1 10^3/uL (0.0-0.50); EOS % 1.7 % (0.0-3.0); HEMATOCRIT 39.7 % (36.0-47.0); IMMATURE GRANULOCYTE % 0.2 % (0-3.0); LYMPH # 2.8 10^3/uL (1.5-4.5); LYMPH % 47.2 % (24.0-44.0); MEAN CORPUSCULAR HEMOGLOBIN 28.3 pg (27.0-33.0); MEAN CORPUSCULAR HGB CONC 32.7 g/dl (32.0-36.5); MEAN CORPUSCULAR VOLUME 86.3 fl (80.0-96.0); MONO # 0.4 10^3/uL (0.0-0.8); NEUTROPHILS # 2.6 10^3/uL (1.8-7.7); NEUTROPHILS % 43.6 % (36.0-66.0); PLATELET COUNT, AUTOMATED 316 10^3/uL (150-450); RED CELL DISTRIBUTION WIDTH 13.9 % (11.5-14.5); RETIC HEMOGLOBIN EQUIVALENT 31.1 pg (24-36); RETICULOCYTE # 63.5 10^9/L (17-77); RETICULOCYTE % 1.4 % (0.5-1.5); WHITE BLOOD COUNT 5.9 10^3/uL (4.0-10.0)
[2017-05-06 16:21] LABS: ALBUMIN 3.8 GM/DL (3.2-5.2); ALBUMIN/GLOBULIN RATIO 0.95 (1.00-1.93); ALKALINE PHOSPHATASE 111 U/L (45-117); ALT/SGPT 24 U/L (12-78); ANION GAP 9 MEQ/L (8-16); AST/SGOT 19 U/L (7-37); BILIRUBIN,TOTAL 0.4 MG/DL (0.2-1.0); BLOOD UREA NITROGEN 15 MG/DL (7-18); CALCIUM LEVEL 8.9 MG/DL (8.8-10.2); CARBON DIOXIDE LEVEL 29 MEQ/L (21-32); CHLORIDE LEVEL 98 MEQ/L (98-107); CREATININE FOR GFR 0.67 MG/DL (0.55-1.30); GLOMERULAR FILTRATION RATE > 60.0 (>45); GLUCOSE, FASTING 138 MG/DL (70-100); MAGNESIUM LEVEL 2.1 MG/DL (1.8-2.4); POTASSIUM SERUM 3.5 MEQ/L (3.5-5.1); SODIUM LEVEL 136 MEQ/L (136-145); TOTAL PROTEIN 7.8 GM/DL (6.4-8.2)
== END ==
LOC: M SFHCPLAZ 13:10
DX: M47.816 Spondylosis without myelopathy or radiculopathy, lumbar region (principal); I50.30 Unspecified diastolic (congestive) heart failure; J45.50 Severe persistent asthma, uncomplicated

== ENCOUNTER → 2017-05-10 | Outpatient (CLI) | payer OTHER | LOC: M SLEEP HO 13:06 | DX: G47.33 Obstructive sleep apnea (adult) (pediatric) (principal) | CPT/HCPCS: G0399 ==

== ENCOUNTER → 2017-08-06 | Outpatient (CLI) | payer OTHER | LOC: M SLEEP 20:00 | DX: G47.33 Obstructive sleep apnea (adult) (pediatric) (principal) | CPT/HCPCS: 95811 ==

== ENCOUNTER → 2017-11-01 | Outpatient (REF) | payer OTHER ==
[2017-11-01 13:37] LABS: BASO # 0.1 10^3/uL (0.0-0.2); BASO % 0.8 % (0.0-1.0); EOS # 0.3 10^3/uL (0.0-0.50); EOS % 3.4 % (0.0-3.0); HEMATOCRIT 38.3 % (36.0-47.0); HEMOGLOBIN 12.5 g/dl (12.0-15.5); IMMATURE GRANULOCYTE % 0.3 % (0-3.0); LYMPH # 4.1 10^3/uL (1.5-4.5); MEAN CORPUSCULAR HEMOGLOBIN 29.6 pg (27.0-33.0); MEAN CORPUSCULAR HGB CONC 32.6 g/dl (32.0-36.5); MEAN CORPUSCULAR VOLUME 90.8 fl (80.0-96.0); MONO # 0.6 10^3/uL (0.0-0.8); MONO % 6.2 % (0.0-5.0); NEUTROPHILS % 44.3 % (36.0-66.0); PLATELET COUNT, AUTOMATED 320 10^3/uL (150-450); RED BLOOD COUNT 4.22 10^6/uL (4.00-5.40); RED CELL DISTRIBUTION WIDTH 13.7 % (11.5-14.5); RETIC HEMOGLOBIN EQUIVALENT 34.5 pg (24-36); RETICULOCYTE # 68.4 10^9/L (17-77); RETICULOCYTE % 1.6 % (0.5-1.5); WHITE BLOOD COUNT 9.1 10^3/uL (4.0-10.0)
[2017-11-01 14:21] LABS: ALBUMIN 3.8 GM/DL (3.2-5.2); ALBUMIN/GLOBULIN RATIO 1.03 (1.00-1.93); ALKALINE PHOSPHATASE 110 U/L (45-117); ALT/SGPT 20 U/L (12-78); ANION GAP 13 MEQ/L (8-16); AST/SGOT 17 U/L (7-37); BILIRUBIN,TOTAL 0.7 MG/DL (0.2-1.0); BLOOD UREA NITROGEN 14 MG/DL (7-18); CALCIUM LEVEL 9.5 MG/DL (8.8-10.2); CARBON DIOXIDE LEVEL 25 MEQ/L (21-32); CHLORIDE LEVEL 102 MEQ/L (98-107); CREATININE FOR GFR 0.82 MG/DL (0.55-1.30); GLOMERULAR FILTRATION RATE > 60.0 (>45); GLUCOSE, FASTING 119 MG/DL (70-100); POTASSIUM SERUM 3.9 MEQ/L (3.5-5.1); SODIUM LEVEL 140 MEQ/L (136-145); TOTAL PROTEIN 7.5 GM/DL (6.4-8.2)
[2017-11-01 14:29] LABS: ESTIMATED AVERAGE GLUCOSE 186 MG/DL (60-110); HEMOGLOBIN A1c 8.1 %
[2017-11-02 08:11] LABS: PTH INTACT 81.6 PG/ML (18.5-88.0); TOTAL 25(OH) VITAMIN D 73.3 NG/ML (30.0-100.0)
== END ==
LOC: M SFHCPLAZ 11:29
DX: E53.8 Deficiency of other specified B group vitamins (principal); E55.9 Vitamin D deficiency, unspecified; E11.9 Type 2 diabetes mellitus without complications

== ENCOUNTER → 2018-01-17 | Outpatient (REF) | payer OTHER ==
[2018-01-17 13:33] LABS: ALBUMIN 3.5 GM/DL (3.2-5.2); ALBUMIN/GLOBULIN RATIO 0.97 (1.00-1.93); ALKALINE PHOSPHATASE 141 U/L (45-117); ALT/SGPT 18 U/L (12-78); ANION GAP 8 MEQ/L (8-16); AST/SGOT 12 U/L (7-37); BILIRUBIN,TOTAL 0.5 MG/DL (0.2-1.0); BLOOD UREA NITROGEN 16 MG/DL (7-18); C REACTIVE PROTEIN QUANTITATIV 0.38 MG/DL (0.00-0.30); CALCIUM LEVEL 10.2 MG/DL (8.8-10.2); CARBON DIOXIDE LEVEL 28 MEQ/L (21-32); CHLORIDE LEVEL 102 MEQ/L (98-107); CHOLESTEROL LEVEL 181 MG/DL (<200); CPK CREATINE PHOSPHOKINASE 59 U/L (26-192); FREE T4 0.99 NG/DL (0.76-1.46); GLOMERULAR FILTRATION RATE > 60.0 (>45); GLUCOSE, FASTING 187 MG/DL (70-100); HDL CHOLESTEROL 48 MG/DL (>40); LDL CHOLESTEROL 92 MG/DL (<100); NON-HDL-C 133 MG/DL; POTASSIUM SERUM 4.5 MEQ/L (3.5-5.1); PTH INTACT 47.6 PG/ML (18.5-88.0); SODIUM LEVEL 138 MEQ/L (136-145); TOTAL 25(OH) VITAMIN D 61.6 NG/ML (30.0-100.0); TOTAL PROTEIN 7.1 GM/DL (6.4-8.2); TRIGLYCERIDES LEVEL 206 MG/DL (<150)
== END ==
LOC: M SFHCPLAZ 09:11
DX: E78.5 Hyperlipidemia, unspecified (principal); E03.9 Hypothyroidism, unspecified

== ENCOUNTER 2018-03-21 13:29 | Inpatient (IN) | payer OTHER ==
[~2018-03-21] VITALS: Ht 167.6 cm; Wt 104.1 kg
[~2018-03-21 13:29] MED LIST changes: +ALBU17IN2 INH; +ALBU83IN NEB; +ALOG25TA PO; +BACL10TA2 PO; -DRIS50002 PO; +DRIS50003 PO; +FERR325T3 PO; +FOLI1TAB11 PO; -FOLI1TAB4 PO; -GABA-283 PO; +GABA-845 PO; -GABA800T PO; +GABA800T4 PO; -ISOVUE-370 76% 100ML VIAL (Q9967) As Ordered ONE; +KLOR10TA76 PO; +KLOR20TA42 PO; +LEVA0.3126 INH; -LEVA0.314 INH; -POTA20TA PO; -ROSU40TA PO; +ROSU40TA3 PO; -TRAZ-136 PO; +TRAZ-163 PO; -VOLT1GEL15 TD; +VOLT1GEL15 TOP
[2018-03-21] MEDS ORDERED: NS 500 ML IV ONE (15:15)
--- NOTE | 2018-03-21 15:35 | REP ---
CT Head without contrast HISTORY: Fall COMPARISON: 04/09/2017 There is no intraparenchymal hemorrhage, acute infarct, mass or midline shift. The ventricular system and cortical sulci are dilated consistent with minimal volume loss. . There is no extra cerebral collection. There is no fracture. The visualized sinuses are clear. IMPRESSION: Minimal volume loss. Electronically Signed by Ramo Tran MD 03/21/2018 03:27 P
--- NOTE | 2018-03-21 15:42 | REP ---
CT cervical spine without contrast HISTORY: Fall COMPARISON: 04/08/2017 There is no acute fracture or subluxation. Disc bulges with associated osteophyte formation are present at the C3-4 through C7-T1 levels. There is minimal narrowing of the spinal canal. Uncinate process and/or facet hypertrophy are present at the C3-4 through C7-T1 levels. These findings produce minimal to moderate narrowing of the neural foramina. The C3-4 through C7-T1 intervertebral discs are decreased in height consistent with disc degeneration. IMPRESSION: 1. There is no acute fracture or subluxation. 2. There is cervical spondylosis at the C3-4 through C7-T1 levels. Electronically Signed by Ramo Tran MD 03/21/2018 03:33 P
[2018-03-21 16:15] LABS: BASO % 0.4 % (0.0-1.0); EOS # 0.2 10^3/uL (0.0-0.50); EOS % 1.8 % (0.0-3.0); HEMATOCRIT 36.3 % (36.0-47.0); HEMOGLOBIN 12.1 g/dl (12.0-15.5); LYMPH # 2.6 10^3/uL (1.5-4.5); LYMPH % 26.6 % (24.0-44.0); MEAN CORPUSCULAR HEMOGLOBIN 29.5 pg (27.0-33.0); MEAN CORPUSCULAR HGB CONC 33.3 g/dl (32.0-36.5); MEAN CORPUSCULAR VOLUME 88.5 fl (80.0-96.0); MONO # 0.7 10^3/uL (0.0-0.8); MONO % 7.5 % (0.0-5.0); NEUTROPHILS # 6.1 10^3/uL (1.8-7.7); NEUTROPHILS % 63.3 % (36.0-66.0); PLATELET COUNT, AUTOMATED 323 10^3/uL (150-450); WHITE BLOOD COUNT 9.7 10^3/uL (4.0-10.0)
--- NOTE | 2018-03-21 16:21 | REP ---
Chest one-view HISTORY: Chest pain Comparison: 03/05/2017 The lungs are clear. The heart is normal in size. The pulmonary vasculature is normal in appearance. Impression: No acute disease. Electronically Signed by Ramo Tran MD 03/21/2018 04:13 P
[2018-03-21 16:29] LABS: INR 0.99; PARTIAL THROMBOPLASTIN TIME 29.4 SECONDS (25.4-37.6); PROTHROMBIN TIME 13.2 SECONDS (12.1-14.4)
[2018-03-21] MEDS ORDERED: ONDANSETRON 4MG/2ML VIAL (J2405) IV ONE (16:30)
[2018-03-21] MEDS ORDERED: MORPHINE 4 MG/ML 1ML VIAL/SYRINGE (J2270) IV ONE (16:30)
--- NOTE | 2018-03-21 16:31 | REP ---
AP pelvis: Single view: History: Injury in a fall. Comparison study: March 05, 2017. Findings: The patient is rotated somewhat to the right. The bony pelvic ring is intact. No pelvic or sacral fracture is seen. No hip fracture is noted. Visualized bowel gas pattern is normal. Flank stripes are intact. Impression: No pelvic or sacral fracture seen. Electronically Signed by Jameel Vinson MD 03/21/2018 06:17 P
[2018-03-21 16:42] LABS: ALBUMIN 3.3 GM/DL (3.2-5.2); ALT/SGPT 21 U/L (12-78); BILIRUBIN,DIRECT 0.4 MG/DL (0.0-0.2); BILIRUBIN,TOTAL 1.6 MG/DL (0.2-1.0); BLOOD UREA NITROGEN 17 MG/DL (7-18); CALCIUM LEVEL 8.6 MG/DL (8.8-10.2); CARBON DIOXIDE LEVEL 23 MEQ/L (21-32); CHLORIDE LEVEL 98 MEQ/L (98-107); CPK CREATINE PHOSPHOKINASE 684 U/L (26-192); CREATININE FOR GFR 0.82 MG/DL (0.55-1.30); FREE T4 1.63 NG/DL (0.76-1.46); GLOMERULAR FILTRATION RATE > 60.0 (>45); GLUCOSE, FASTING 106 MG/DL (70-100); LIPASE 73 U/L (73-393); MAGNESIUM LEVEL 1.5 MG/DL (1.8-2.4); MB/CK RELATIVE INDEX 0.69 (< OR =4); POTASSIUM SERUM 3.3 MEQ/L (3.5-5.1); SODIUM LEVEL 137 MEQ/L (136-145); TOTAL PROTEIN 7.3 GM/DL (6.4-8.2); TROPONIN I < 0.02 NG/ML (< 0.10)
--- NOTE | 2018-03-21 16:54 | REP ---
BILATERAL FEMUR, EIGHT VIEWS: HISTORY: Fall. RIGHT FEMUR: There is no acute fracture or dislocation. There is mild narrowing of the hip joint space with associated sclerosis. There is mild narrowing of the medial knee joint space. Osteophytes are present on the tibia and patella. IMPRESSION: Degenerative change as described above. LEFT FEMUR: There is no acute fracture or dislocation. There is minimal narrowing of the left hip joint space with associated sclerosis. There is moderate narrowing of the medial knee joint space. Osteophytes are present on the tibia and patella. IMPRESSION: There is no acute fracture or dislocation. Electronically Signed by Ramo Tran MD 03/21/2018 05:11 P
[2018-03-21] MEDS ORDERED: MAG SULF 1GM/100ML (MAG RUN) 1 GM in APPROPRIATE DILUENT 1 EA IV ONE (17:00)
[2018-03-21] MEDS ORDERED: POTASSIUM CHLORIDE 10 MEQ SR TABLET PO ONE (17:00)
--- NOTE | 2018-03-21 17:05 | REP ---
BILATERAL TIBIA AND FIBULA, EIGHT VIEWS: HISTORY: Fall. RIGHT TIBIA FIBULA: There is no acute fracture or dislocation. There is mild narrowing of the medial knee joint space. Osteophytes are present on the tibia and patella. The ankle joint space is normal in appearance. IMPRESSION:There is no acute fracture or dislocation. LEFT TIBIA FIBULA: There is no acute fracture or dislocation. There is moderate narrowing of the medial knee joint space. Osteophytes are present on the tibia and patella. The ankle joint space is normal in appearance. Osteophytes are present on the inferior and posterior calcaneus. IMPRESSION:There is no acute fracture or dislocation. Electronically Signed by Ramo Tran MD 03/21/2018 05:11 P
[2018-03-21] MEDS ORDERED: POTA1TAB14 PO (17:55)
--- NOTE | 2018-03-21 17:58 | REP ---
Bilateral knee series: Eight views: History: Injury in a fall. Comparison study: Bilateral knee radiographs from January 14, 2015. Findings: There is advanced osteoarthritis bilaterally in the knees affecting the patellofemoral and medial compartments and to a lesser extent the lateral compartments. There is a large periarticular ossicle, 2.4 cm in greatest diameter, at the medial aspect of the left knee which it is unchanged from the 2014 prior study. The osteoarthritic changes are slightly more pronounced. There is no evidence of fracture or joint effusion on either side. Impression: Advanced three compartment osteoarthritis. Medial periarticular ossicle on the left unchanged from the 2015 study. No acute bony abnormality. Electronically Signed by Jameel Vinson MD 03/21/2018 06:18 P
[2018-03-21] MEDS ORDERED: ALBUTEROL 90 MCG/ACT 8GM HFA INHALER INH PRN (19:30)
[2018-03-21] MEDS ORDERED: MORPHINE 4 MG/ML 1ML VIAL/SYRINGE (J2270) IV PRN (19:30)
[2018-03-21] MEDS ORDERED: ALBUTEROL SULFATE 2.5 MG/0.5 ML INH NEB SOLN INH PRN (19:30)
[2018-03-21] MEDS ORDERED: NYSTATIN 100,000 UNITS/GM TOPICAL PWD 15 GM TOP PRN (19:30)
[2018-03-21] MEDS ORDERED: MORPHINE 2 MG/ML 1ML SYRINGE (J2270) As Ordered ONE (19:43)
[2018-03-21] MEDS ORDERED: MORPHINE 2 MG/ML 1ML SYRINGE (J2270) IV PRN (19:47)
--- NOTE | 2018-03-21 20:16 | ECGEPIP ---
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
[2018-03-21] MEDS: DOCUSATE SODIUM 100 MG CAP PO SCH (21:00)
[2018-03-21 21:04] VITALS: BP 116/68
[2018-03-21] MEDS: CYCLOBENZAPRINE 10 MG TAB PO SCH (21:56)
[2018-03-21] MEDS: MAGNESIUM OXIDE 400 MG TAB (MAG-OX) PO SCH (21:56)
[2018-03-21] MEDS: NORTRIPTYLINE 25 MG CAP PO SCH (21:57)
[2018-03-21] MEDS: BACLOFEN 10 MG TAB PO SCH (21:57)
[2018-03-21] MEDS: metFORMIN 850 MG TAB PO SCH (21:58)
[2018-03-21] MEDS: GABAPENTIN 400 MG CAP PO SCH (21:58)
[2018-03-21] MEDS: RAMELTEON 8 MG TAB (ROZEREM) PO SCH (21:58)
[2018-03-21] MEDS: DULoxetine 30 MG CAP (CYMBALTA) PO SCH (21:58)
[2018-03-21] MEDS: NS 1,000 ML IV SCH (21:59)
[2018-03-21] MEDS: MORPHINE 4 MG/ML 1ML VIAL/SYRINGE (J2270) IV PRN (22:11)
[2018-03-22] MEDS: MORPHINE 4 MG/ML 1ML VIAL/SYRINGE (J2270) IV PRN ×4 (02:20→18:47)
[2018-03-22 06:00] VITALS: BP 128/70
[2018-03-22] MEDS: LEVOTHYROXINE 75MCG TABLET (0.075MG) PO SCH (06:03)
[2018-03-22] MEDS: NS 1,000 ML IV SCH ×2 (06:04→16:00)
[2018-03-22 06:47] LABS: HEMATOCRIT 33.6 % (36.0-47.0); HEMOGLOBIN 10.8 g/dl (12.0-15.5); MEAN CORPUSCULAR HEMOGLOBIN 29.3 pg (27.0-33.0); MEAN CORPUSCULAR HGB CONC 32.1 g/dl (32.0-36.5); MEAN CORPUSCULAR VOLUME 91.3 fl (80.0-96.0); PLATELET COUNT, AUTOMATED 303 10^3/uL (150-450); RED BLOOD COUNT 3.68 10^6/uL (4.00-5.40); WHITE BLOOD COUNT 7.5 10^3/uL (4.0-10.0)
[2018-03-22 07:15] LABS: BLOOD UREA NITROGEN 12 MG/DL (7-18); CALCIUM LEVEL 8.3 MG/DL (8.8-10.2); CARBON DIOXIDE LEVEL 29 MEQ/L (21-32); CHLORIDE LEVEL 101 MEQ/L (98-107); CREATININE FOR GFR 0.85 MG/DL (0.55-1.30); GLOMERULAR FILTRATION RATE > 60.0 (>45); GLUCOSE, FASTING 167 MG/DL (70-100); POTASSIUM SERUM 3.3 MEQ/L (3.5-5.1); SODIUM LEVEL 138 MEQ/L (136-145)
[2018-03-22] MEDS: BUDESONIDE 0.5 MG/2 ML INHALATION SUSPENSION INH SCH ×2 (07:56→20:16)
[2018-03-22] MEDS: ALBUTEROL SULFATE 2.5 MG/0.5 ML INH NEB SOLN NEB SCH ×3 (07:56→20:16)
[2018-03-22] MEDS: methylPREDNISolone 4 MG TAB PO SCH (08:38)
[2018-03-22] MEDS: GABAPENTIN 400 MG CAP PO SCH ×3 (08:38→20:51)
[2018-03-22] MEDS: MAGNESIUM OXIDE 400 MG TAB (MAG-OX) PO SCH ×2 (08:38→20:51)
[2018-03-22] MEDS: FOLIC ACID 1 MG TAB PO SCH (08:39)
[2018-03-22] MEDS: INDAPAMIDE 1.25MG TABLET PO SCH (08:39)
[2018-03-22] MEDS: BACLOFEN 10 MG TAB PO SCH ×3 (08:39→20:50)
[2018-03-22] MEDS: POTASSIUM CHLORIDE 10 MEQ SR TABLET PO SCH (08:39)
[2018-03-22] MEDS: PANTOPRAZOLE 40MG TAB (PROTONIX) PO SCH (08:39)
[2018-03-22] MEDS: DULoxetine 30 MG CAP (CYMBALTA) PO SCH ×2 (08:39→20:51)
[2018-03-22] MEDS: ESCITALOPRAM OXALATE 10 MG TAB (LEXAPRO) PO SCH (08:39)
[2018-03-22] MEDS: CYCLOBENZAPRINE 10 MG TAB PO SCH ×3 (08:39→20:51)
[2018-03-22] MEDS: ASPIRIN 81 MG ENTERIC TAB PO SCH (08:40)
[2018-03-22] MEDS: DOCUSATE SODIUM 100 MG CAP PO SCH ×2 (08:40→20:52)
[2018-03-22] MEDS: SITagliptin 50 MG TAB (JANUVIA) PO SCH (08:40)
[2018-03-22] MEDS: metFORMIN 850 MG TAB PO SCH ×2 (08:40→20:50)
--- NOTE | 2018-03-22 08:59 | HPE ---
DATE OF ADMISSION: 03/21/2018 62-year-old female with past medical history of cervical and thoracolumbar degenerative joint disease with disc herniation requiring multiple epidurals, history of diabetes, hypertension, hyperlipidemia, presents to the emergency room after having multiple falls for the last three days. She says nothing initiates it. It suddenly happens. She gets acute low back pain radiating toward her right lateral portion of her knee and it causes her right foot to buckle and she falls. This has been going on for the last three days. She came to the emergency room for evaluation. In the emergency room, she was given IV morphine with some relief but the pain is still severe. She has difficulty ambulating. She had x-rays done of her right tibia, fibula, pelvis, knee, and femur all with no fractures. She had a head CT which was negative for any kind of bleed or mass. However, she will be admitted for further management and physical therapy evaluation. She denied any chest pain, vertigo, headache or any prodromal symptoms prior to any of these falls and none of them caused any loss of consciousness. PAST MEDICAL HISTORY: Severe persistent asthma. History of cervical and thoracolumbar degenerative joint disease. History of diabetes. Hypothyroidism. Hyperlipidemia. Non-alcoholic steatohepatitis. Depression. Panic disorder. Agoraphobia. History of osteoporosis. Gastroesophageal reflux disease (GERD). Essential tremors. Bilateral knee osteoarthritis. Iron deficiency anemia. History of pulmonary embolus. Obstructive sleep apnea. Hypothalamic hyperhidrosis. Insomnia. Hypertension. Grade I diastolic heart failure. PAST SURGICAL HISTORY: Laparoscopic cholecystectomy. Total abdominal hysterectomy with bilateral salpingo-oophorectomy. History of lumbar laminectomy. Rectocele repair. Cystoscopy released of mid ureteral mesh. Left knee arthroscopy. MTP fusion/bunion surgery with bone graft. ALLERGIES: She has drug allergies to QUINOLONES, ROFECOXIB, ROSUVASTATIN, SIMVASTATIN, SULFA DRUGS, THEOPHYLLINE. FAMILY HISTORY: Noncontributory. SOCIAL HISTORY: Patient denies tobacco, alcohol, elicit drugs. MEDICATION: - albuterol inhaler as needed - alogliptin 25 mg orally daily - aspirin 81 mg orally daily - baclofen 10 mg orally three times a day - budesonide 0.5 mg inhaled twice daily - cyclobenzaprine 5 mg orally three times a day - cyclobenzaprine 10 mg orally three times a day - Colace 200 mg orally twice daily - duloxetine 60 mg orally twice daily - escitalopram 10 mg orally daily - esomeprazole 40 mg orally daily - fluticasone/Vilanterol one puff inhaled daily - folic acid 1 mg orally daily - gabapentin 800 mg orally three times a day - indapamide 2.5 mg orally daily - Synthroid 75 mcg orally every morning - magnesium oxide 400 mg orally twice daily - metformin 850 mg orally twice daily - methylprednisolone 2 mg orally daily - nortriptyline 25 mg orally at bedtime - potassium chloride 40 mEq orally daily - Rozerem 8 mg orally at bedtime - rosuvastatin 40 mg orally daily - vitamin D 50,000 units orally every 2 weeks on Tuesday - Voltaren 1% gel one dose topically four times daily to both knees REVIEW OF SYSTEMS: Negative all ten major systems except what is mentioned in history of present illness. VITALS: Blood pressure is 114/65, heart rate 85 and regular, respiratory rate 20, temperature is 98.4, oxygen saturation 97% on room air. Head: Atraumatic, normocephalic. Neck is normal. No jugular venous distention. Lungs are clear to auscultation. S1, S2 audible. No murmurs appreciated. Abdomen is soft, positive bowel sounds, no pedal edema. Musculoskeletal examination: Point tenderness on lumbosacral area. There is positive straight leg raise test on the right leg. Neurologic examination: Patient awake, alert times three. LABS: WBC 9.7, hemoglobin 12.1, hematocrit 36.3, platelets are 323,000. Sodium is 137, potassium 3.3, chloride 98, CO2 23, BUN 17, creatinine 0.82, calcium 8.6, magnesium 1.5. TSH 4.890. CK is 684. IMPRESSION: 1. Acute radiculopathy. 2. Falls. 3. Rhabdomyolysis. 4. Hypomagnesemia. 5. Hypokalemia. PLAN: Patient to be admitted to the medical/surgical floor. She is going to be started on IV morphine 2 mg every 2 hours as needed for her pain. Will have physical therapy see her tomorrow. The ER attending already repleted her magnesium and potassium. Will follow levels in the morning. Her rhabdomyolysis is very mild. I will start her on gentle hydration, encourage oral fluid intake. Will continue all other preadmission medications and continue her care on the medical/surgical floor.
[2018-03-22] MEDS: ROSUVASTATIN 10 MG TAB (CRESTOR) PO SCH (12:58)
[2018-03-22 14:00] VITALS: BP 107/57
--- NOTE | 2018-03-22 19:21 | IPNPDOC ---
Subjective Date Seen The patient was seen on 03/22/18. Subjective Chief Complaint/HPI Ms. Jiang is still having significant R medial lower leg pain. She has been requiring 2mg morphine every 2 hours and reports that this isn't holding her for long enough. When I asked her about why she thinks this pain has come on so intensely, she admitted that she had fallen 4 times between Tuesday and Tuesday. She didn't have much insight into why she was falling. She also complains of nasal congestion and a sore throat for the last 2-3 days. She asks if there is anything that can be done about that. General: Reports: Normal Appetite Constitutional: Denies: Chills, Fever Pulmonary: Denies: Dyspnea, Cough Cardiovascular: Denies: Chest Pain, Palpitations Gastrointestinal: Denies: Nausea, Vomiting Musculoskeletal: Reports: Back Pain, Leg Pain (R>L) Psych: Reports: Mood Normal Objective Physical Examination General Exam: Positive: Alert, Cooperative, No Acute Distress (laying in bed with an ice pack on her R knee when I entered the room) Eye Exam: Positive: Conjunctiva & lids normal; Negative: Sclera icteric ENT Exam: Positive: Mucous membr. moist/pink Neck Exam: Negative: Lymphadenopathy Chest Exam: Positive: Clear to auscultation, Normal air movement Heart Exam: Positive: Rate Normal, Normal S1, Normal S2; Negative: Murmurs Abdomen Exam: Positive: Normal bowel sounds, Soft; Negative: Tenderness Extremity Exam: Positive: Tenderness (she seems pretty hyperalgesic on the R lower extremity. The distribution of her pain is c/w a L5 distribution or possibly the saphenous medial crural cutaneous nerve. ) Psych Exam: Positive: Mood NL, Oriented x 3 Assessment /Plan Problems (1) Radiculopathy of lumbar region Status: Acute Response to Treatment: Uncontrolled Discussed With: Nurse, Patient Problem Specific Plan: Monitor Clinically Problem Text: At this point in time the medications she is getting are too short acting. I added [place] 7.5mg qid and changed the morphine to 2mg Q6h for tr ue breakthrough pain. Will see how this does for her. She has seen the pain clinic in the past and it may be a good idea to consult them again if this doesn't work to significantly relieve her pain. She seems to have irritation/inflammation of a specific nerve or nerve root, so they may be able to target this interventionally. (2) DJD (degenerative joint disease), lumbar Status: Chronic Response to Treatment: Uncontrolled Discussed With: Patient Problem Specific Plan: Monitor Clinically Problem Text: I suspect that her recent falls exacerbated longstanding DJD to cause nerve root irritation. (3) Fall from standing Status: Acute Problem Text: It is not clear to me why she had recent falls. We may need to look into spinal stenosis. I have not had a chance to look deeper into her history to see if she has an element of this or if recent imaging has been done. Regardless P/T and O/T will be an important part of her care while here. (4) Chronic pain syndrome Status: Chronic Problem Text: Her acute pain needs to be managed in the light of the fact that she has chronic pain. Additionally, we need to be cautious that her acute pain does not persist long enough to convert to chronic pain. We may need to engage Pain Management to assist with these goals. (5) DM2 (diabetes mellitus, type 2) Status: Chronic Problem Text: She is on her regular medications. AccuChecks and ISS were added to her regimen today. I do not anticipate any dye studies, so I allowed her metformin to remain on. However, we should be cognizant that she is on metformin right now. (6) Diastolic CHF Status: Chronic Response to Treatment: Stable Discussed With: Nurse, Patient Problem Specific Plan: Monitor Clinically Problem Text: Continue home regimen. (7) Hypothyroid Status: Chronic Response to Treatment: Stable Problem Text: Continue home regimen. (8) Depression Status: Chronic Response to Treatment: Stable Problem Text: Continue current regimen. (9) GERD (gastroesophageal reflux disease) Status: Chronic Problem Text: Continue current regimen. (10) HTN (hypertension) Status: Chronic Problem Text: Continue current regimen. Plan/VTE VTE Prophylaxis Ordered?: Yes (Lovenox was added today) VS, I&O, 24H, Fishbone Vital Signs/I&O Vital Signs Date Time Temp Pulse Resp B/P (MAP) Pulse Ox O2 Delivery O2 Flow Rate FiO2 03/22/18 18:47 18 Room Air 03/22/18 14:00 97.4 88 107/57 (74) 93 I&O- Last 24 Hours up to 6 AM 03/22/18 05:59 Intake Total 600 ml Output Total 200 ml Balance 400 ml Laboratory Data 24H LABS Laboratory Tests 2 03/22/18 06:16: Nucleated Red Blood Cells % (auto) 0.0, Anion Gap 8, Glomerular Filtration Rate > 60.0, Blood Urea Nitrogen 12, Creatinine 0.85, Sodium Level 138, Potassium Level 3.3L, Chloride Level 101, Carbon Dioxide Level 29, Calcium Level 8.3L CBC/BMP Laboratory Tests 03/22/18 06:16 Red Blood Count 3.68 L, Mean Corpuscular Volume 91.3, Mean Corpuscular Hemoglobin 29.3, Mean Corpuscular Hemoglobin Concent 32.1, Red Cell Distribution Width 13.7, Calcium Level 8.3 L Evans Pradhan MD Mar 22, 2018 19:21
[2018-03-22 20:00] VITALS: BP 113/68
[2018-03-22] MEDS ORDERED: DEXTROSE 50% 50 ML SYRINGE IV PRN (20:15)
[2018-03-22] MEDS ORDERED: GLUCOSE 4 GM CHEW TABLET PO PRN (20:15)
[2018-03-22] MEDS ORDERED: GLUCAGON FOR INJ 1 MG VIAL (J1610) SC PRN (20:15)
[2018-03-22] MEDS: NORTRIPTYLINE 25 MG CAP PO SCH (20:50)
[2018-03-22] MEDS: RAMELTEON 8 MG TAB (ROZEREM) PO SCH (20:51)
[2018-03-22] MEDS: ANEXSIA, NORCO 7.5MG/325MG TABLET(HYDROCODONE/APAP) PO SCH (20:52)
[2018-03-22] MEDS: HumaLOG INSULIN (NovoLOG) PER UNIT SC SCH (21:00)
[2018-03-22] MEDS: CEPACOL LOZENGE PO PRN (21:42)
[2018-03-22] MEDS: PSEUDOEPHEDRINE 30 MG TAB PO PRN (21:42)
[2018-03-23] MEDS: NS 1,000 ML IV SCH ×2 (02:19→13:18)
[2018-03-23] MEDS: LEVOTHYROXINE 75MCG TABLET (0.075MG) PO SCH (05:34)
[2018-03-23] MEDS: MORPHINE 4 MG/ML 1ML VIAL/SYRINGE (J2270) IV PRN ×2 (05:36→18:54)
[2018-03-23 05:49] VITALS: BP 103/64
[2018-03-23] MEDS: PSEUDOEPHEDRINE 30 MG TAB PO PRN ×2 (06:39→21:17)
[2018-03-23] MEDS: CEPACOL LOZENGE PO PRN ×2 (06:39→21:17)
[2018-03-23 06:52] LABS: HEMATOCRIT 30.4 % (36.0-47.0); HEMOGLOBIN 9.9 g/dl (12.0-15.5); MEAN CORPUSCULAR HEMOGLOBIN 29.4 pg (27.0-33.0); MEAN CORPUSCULAR HGB CONC 32.6 g/dl (32.0-36.5); MEAN CORPUSCULAR VOLUME 90.2 fl (80.0-96.0); PLATELET COUNT, AUTOMATED 290 10^3/uL (150-450); RED BLOOD COUNT 3.37 10^6/uL (4.00-5.40); WHITE BLOOD COUNT 7.5 10^3/uL (4.0-10.0)
[2018-03-23 07:21] LABS: ALBUMIN 2.7 GM/DL (3.2-5.2); ALT/SGPT 19 U/L (12-78); BILIRUBIN,TOTAL 0.6 MG/DL (0.2-1.0); BLOOD UREA NITROGEN 9 MG/DL (7-18); CALCIUM LEVEL 8.2 MG/DL (8.8-10.2); CARBON DIOXIDE LEVEL 28 MEQ/L (21-32); CHLORIDE LEVEL 103 MEQ/L (98-107); CREATININE FOR GFR 0.53 MG/DL (0.55-1.30); GLOMERULAR FILTRATION RATE > 60.0 (>45); GLUCOSE, FASTING 123 MG/DL (70-100); MAGNESIUM LEVEL 1.9 MG/DL (1.8-2.4); POTASSIUM SERUM 3.3 MEQ/L (3.5-5.1); SODIUM LEVEL 140 MEQ/L (136-145); TOTAL PROTEIN 6.6 GM/DL (6.4-8.2)
[2018-03-23] MEDS: BUDESONIDE 0.5 MG/2 ML INHALATION SUSPENSION INH SCH ×2 (08:21→20:00)
[2018-03-23] MEDS: ALBUTEROL SULFATE 2.5 MG/0.5 ML INH NEB SOLN NEB SCH ×3 (08:21→20:00)
[2018-03-23] MEDS: SITagliptin 50 MG TAB (JANUVIA) PO SCH (08:29)
[2018-03-23] MEDS: HumaLOG INSULIN (NovoLOG) PER UNIT SC SCH ×4 (08:29→21:03)
[2018-03-23] MEDS: PANTOPRAZOLE 40MG TAB (PROTONIX) PO SCH (08:29)
[2018-03-23] MEDS: INDAPAMIDE 1.25MG TABLET PO SCH (08:29)
[2018-03-23] MEDS: ESCITALOPRAM OXALATE 10 MG TAB (LEXAPRO) PO SCH (08:30)
[2018-03-23] MEDS: BACLOFEN 10 MG TAB PO SCH ×3 (08:30→21:03)
[2018-03-23] MEDS: DOCUSATE SODIUM 100 MG CAP PO SCH ×2 (08:30→21:03)
[2018-03-23] MEDS: DULoxetine 30 MG CAP (CYMBALTA) PO SCH ×2 (08:30→21:02)
[2018-03-23] MEDS: GABAPENTIN 400 MG CAP PO SCH ×3 (08:30→21:03)
[2018-03-23] MEDS: POTASSIUM CHLORIDE 10 MEQ SR TABLET PO SCH (08:30)
[2018-03-23] MEDS: CYCLOBENZAPRINE 10 MG TAB PO SCH ×3 (08:30→21:03)
[2018-03-23] MEDS: ASPIRIN 81 MG ENTERIC TAB PO SCH (08:30)
[2018-03-23] MEDS: FOLIC ACID 1 MG TAB PO SCH (08:31)
[2018-03-23] MEDS: metFORMIN 850 MG TAB PO SCH ×2 (08:31→21:03)
[2018-03-23] MEDS: MAGNESIUM OXIDE 400 MG TAB (MAG-OX) PO SCH ×2 (08:31→21:03)
[2018-03-23] MEDS: ANEXSIA, NORCO 7.5MG/325MG TABLET(HYDROCODONE/APAP) PO SCH ×4 (08:32→21:02)
[2018-03-23] MEDS: methylPREDNISolone 4 MG TAB PO SCH (08:32)
--- NOTE | 2018-03-23 10:55 | IPNPDOC ---
Subjective Date Seen The patient was seen on 03/23/18. Subjective Chief Complaint/HPI Pt this morning c/o pain, loss of strength and pressures in her R knee, this is worse when she tries to use her leg. She states that she is really unable to lift her leg off the bed. General: Denies: Fatigue Constitutional: Denies: Chills, Fever Pulmonary: Denies: Dyspnea, Cough Cardiovascular: Denies: Chest Pain, Palpitations Gastrointestinal: Denies: Nausea, Vomiting Musculoskeletal: Reports: Neck Pain (chronic), Back Pain (chronic, unchanged) Neurological: Reports: Weakness Objective Physical Examination General Exam: Positive: Alert, Cooperative, No Acute Distress Eye Exam: Negative: Sclera icteric ENT Exam: Positive: Mucous membr. moist/pink Neck Exam: Negative: Lymphadenopathy Chest Exam: Positive: Clear to auscultation, Normal air movement Heart Exam: Positive: Rate Normal, Normal S1, Normal S2; Negative: Murmurs Abdomen Exam: Positive: Normal bowel sounds, Soft; Negative: Tenderness Extremity Exam: Positive: Tenderness (she seems pretty hyperalgesic on the R lower extremity. The distribution of her pain is c/w a L5 distribution or possibly the saphenous medial crural cutaneous nerve, pt with noticable leg size difference which appears to be related more to muscle atrophy ) Psych Exam: Positive: Mood NL, Oriented x 3 Assessment /Plan Problems (1) Radiculopathy of lumbar region Status: Acute Response to Treatment: Uncontrolled Discussed With: Nurse, Patient Problem Specific Plan: Monitor Clinically Problem Text: 03/23 Will obtain MRI L spine, last records is from 2015. Cont with current pain regimen. Enc use of PO meds over IV morphine. Pt is aware. Consider Pain Mgmt consult. She reports mtp falls onto her R knee and feels this is the problem in regards to poor mobililty, will perform MRI of knee as well. 03/22 At this point in time the medications she is getting are too short acting. I added [place] 7.5mg qid and changed the morphine to 2mg Q6h for true breakth rough pain. Will see how this does for her. She has seen the pain clinic in the past and it may be a good idea to consult them again if this doesn't work to significantly relieve her pain. She seems to have irritation/inflammation of a specific nerve or nerve root, so they may be able to target this interventionally. (2) DJD (degenerative joint disease), lumbar Status: Chronic Response to Treatment: Uncontrolled Discussed With: Patient Problem Specific Plan: Monitor Clinically Problem Text: I suspect that her recent falls exacerbated longstanding DJD to cause nerve root irritation. (3) Fall from standing Status: Acute Problem Text: It is not clear to me why she had recent falls. We may need to look into spinal stenosis. I have not had a chance to look deeper into her history to see if she has an element of this or if recent imaging has been done. Regardless P/T and O/T will be an important part of her care while here. (4) Chronic pain syndrome Status: Chronic Problem Text: Her acute pain needs to be managed in the light of the fact that she has chronic pain. Additionally, we need to be cautious that her acute pain does not persist long enough to convert to chronic pain. We may need to engage Pain Management to assist with these goals. (5) DM2 (diabetes mellitus, type 2) Status: Chronic Problem Text: She is on her regular medications. AccuChecks and ISS were added to her regimen today. I do not anticipate any dye studies, so I allowed her metformin to remain on. However, we should be cognizant that she is on metformin right now. (6) Diastolic CHF Status: Chronic Response to Treatment: Stable Discussed With: Nurse, Patient Problem Specific Plan: Monitor Clinically Problem Text: Continue home regimen. (7) Hypothyroid Status: Chronic Response to Treatment: Stable Problem Text: Continue home regimen. (8) Depression Status: Chronic Response to Treatment: Stable Problem Text: Continue current regimen. (9) GERD (gastroesophageal reflux disease) Status: Chronic Problem Text: Continue current regimen. (10) HTN (hypertension) Status: Chronic Problem Text: Continue current regimen. Plan/VTE VTE Prophylaxis Ordered?: Yes (Lovenox was added today) Plan Family Medicine Attending Note: I saw and examined Ms. Jiang, discussed with TOSHIA Erickson. Agree with her note as documented. She continues to have significant right knee pain. We've ordered MRI of her lumbar spine as well as an MRI of her knee. Perhaps this will clarify why she is in such intense pain. 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) VS, I&O, 24H, Fishbone Vital Signs/I&O Vital Signs Date Time Temp Pulse Resp B/P (MAP) Pulse Ox O2 Delivery O2 Flow Rate FiO2 03/23/18 09:05 18 Room Air 03/23/18 05:49 97.2 73 103/64 (77) 96 I&O- Last 24 Hours up to 6 AM 03/23/18 06:00 Intake Total 3880 ml Balance 3880 ml Laboratory Data 24H LABS Laboratory Tests 2 03/22/18 20:57: Bedside Glucose (Misc Panel) 156H 03/23/18 06:23: Nucleated Red Blood Cells % (auto) 0.0, Anion Gap 9, Glomerular Filtration Rate > 60.0, Blood Urea Nitrogen 9, Creatinine 0.53L, Sodium Level 140, Potassium Level 3.3L, Chloride Level 103, Carbon Dioxide Level 28, Calcium Level 8.2L, Aspartate Amino Transf (AST/SGOT) 18, Alanine Aminotransferase (ALT/SGPT) 19, Alkaline Phosphatase 99, Total Bilirubin 0.6#, Total Protein 6.6, Albumin 2.7L, Magnesium Level 1.9, Albumin/Globulin Ratio 0.69L CBC/BMP Laboratory Tests 03/23/18 06:23 Red Blood Count 3.37 L, Mean Corpuscular Volume 90.2, Mean Corpuscular Hemoglobin 29.4, Mean Corpuscular Hemoglobin Concent 32.6, Red Cell Distribution Width 13.8, Calcium Level 8.2 L, Aspartate Amino Transf (AST/SGOT) 18, Alanine Aminotransferase (ALT/SGPT) 19, Alkaline Phosphatase 99, Total Bilirubin 0.6 #, Total Protein 6.6, Albumin 2.7 L LIZ MELENDREZ PA-C Mar 23, 2018 10:55 am Evans Pradhan MD Mar 24, 2018 2:54 pm
[2018-03-23] MEDS: ROSUVASTATIN 10 MG TAB (CRESTOR) PO SCH (12:52)
[2018-03-23 14:00] VITALS: BP 135/71
[2018-03-23] MEDS: ENOXAPARIN 40 MG/0.4 ML SYRINGE (J1650) SC SCH (14:05)
[2018-03-23 21:00] VITALS: BP 126/60
[2018-03-23] MEDS: NORTRIPTYLINE 25 MG CAP PO SCH (21:02)
[2018-03-23] MEDS: RAMELTEON 8 MG TAB (ROZEREM) PO SCH (21:02)
[2018-03-24 06:00] VITALS: BP 113/63
[2018-03-24] MEDS: LEVOTHYROXINE 75MCG TABLET (0.075MG) PO SCH (06:12)
--- NOTE | 2018-03-24 07:56 | REP ---
MRI RIGHT KNEE WITHOUT CONTRAST: HISTORY: History of falls. Pain and paresthesias. COMPARISON RADIOGRAPHS: March 21, 2018. TECHNIQUE: Axial, coronal and sagittal imaging planes utilized for T1, proton density T2-weighted scans obtain in the usual fashion with without fat saturation. Image quality is degraded by motion artifact apparently related to patient pain. MRI FINDINGS: There is a radiographically occult posterior medial tibial plateau fracture with a vertically oriented fracture line through the posterior medial tibial plateau. This edge of the posteromedial tibial plateau is involved with exuberant osteoarthritic osteophyte formation. There is associated marrow edema. The fracture shows up to 2 mm diastases. There is 1.5 mm of depression. Cortical and medullary bone signal intensity are otherwise normal. No other fracture is seen. There is a moderate sized joint effusion. There is a fluid-fluid level in the fluid distended suprapatellar bursa consistent with hemarthrosis. There is patellofemoral osteoarthritis as well. The posterior horn of the medial meniscus is not well seen and it is likely degenerated. The anterior horn and body appear intact. No lateral meniscal tear is appreciated. Medial and lateral collateral ligamentous complexes appear intact. The posterior cruciate ligament has an intact appearance. The anterior cruciate ligament is not well seen along its femoral portion. IMPRESSION: Three compartment osteoarthritis. Radiographically occult posterior medial tibial plateau fracture. Hemarthrosis. Degenerative tear posterior horn medial meniscus. Electronically Signed by Jameel Vinson MD 03/24/2018 08:17 A
[2018-03-24] MEDS: BUDESONIDE 0.5 MG/2 ML INHALATION SUSPENSION INH SCH ×2 (08:07→20:50)
[2018-03-24] MEDS: ALBUTEROL SULFATE 2.5 MG/0.5 ML INH NEB SOLN NEB SCH ×3 (08:07→20:50)
--- NOTE | 2018-03-24 08:34 | REP ---
MRI LUMBAR SPINE WITHOUT CONTRAST: HISTORY: Back pain. COMPARISON: 11/21/2015. Decreased signal intensity on T2-weighted images is present in the L2-3 through L5-S1 intervertebral discs. The discs are decreased in height. These findings are consistent with disc degeneration. There is no disc bulge or herniation at the L1-2 and L2-3 levels. The nerves exit the neural foramina without compression. A diffuse disc bulge is present at the L3-4 level. There is minimal compression of the thecal sac. The L3 nerves exit the neural foramina without compression. A diffuse disc bulge is present at the L4-5 level. There is minimal compression of the thecal sac. There is hypertrophy of the posterior articulating facets. The L4 nerves exit the neural foramina without compression. A diffuse disc bulge is present at the L5-S1 level. This abuts the thecal sac. There is hypertrophy of the posterior articulating facets. There is compression of the right L5 nerve in the neural foramen. The left L5 nerve exits the neural foramen without compression. A left laminectomy defect is present. The conus medullaris is normal in appearance terminating at the level of the T12-L1 intervertebral disc. Increased signal intensity on T2-weighted images is present in the endplates of the L5 and S1 vertebral bodies. This represents degenerative change. IMPRESSION: 1. Diffuse disc bulges at the L3-4 and L4-5 levels with minimal thecal sac compression. 2. Diffuse disc bulge at the L5-S1 level. This abuts the thecal sac. There is compression of the right L5 nerve in the neural foramen. There is no significant change compared to the previous study. Electronically Signed by Ramo Tran MD 03/24/2018 08:43 A
[2018-03-24 09:06] LABS: BLOOD UREA NITROGEN 11 MG/DL (7-18); CALCIUM LEVEL 8.6 MG/DL (8.8-10.2); CARBON DIOXIDE LEVEL 32 MEQ/L (21-32); CHLORIDE LEVEL 101 MEQ/L (98-107); GLOMERULAR FILTRATION RATE > 60.0 (>45); GLUCOSE, FASTING 125 MG/DL (70-100); SODIUM LEVEL 140 MEQ/L (136-145)
[2018-03-24] MEDS: HumaLOG INSULIN (NovoLOG) PER UNIT SC SCH ×4 (09:23→20:18)
[2018-03-24] MEDS: ENOXAPARIN 40 MG/0.4 ML SYRINGE (J1650) SC SCH (09:24)
[2018-03-24] MEDS: ESCITALOPRAM OXALATE 10 MG TAB (LEXAPRO) PO SCH (09:24)
[2018-03-24] MEDS: CYCLOBENZAPRINE 10 MG TAB PO SCH ×3 (09:24→20:16)
[2018-03-24] MEDS: DOCUSATE SODIUM 100 MG CAP PO SCH ×2 (09:24→20:17)
[2018-03-24] MEDS: PANTOPRAZOLE 40MG TAB (PROTONIX) PO SCH (09:25)
[2018-03-24] MEDS: INDAPAMIDE 1.25MG TABLET PO SCH (09:25)
[2018-03-24] MEDS: DULoxetine 30 MG CAP (CYMBALTA) PO SCH ×2 (09:26→20:17)
[2018-03-24] MEDS: FOLIC ACID 1 MG TAB PO SCH (09:26)
[2018-03-24] MEDS: BACLOFEN 10 MG TAB PO SCH ×3 (09:26→20:16)
[2018-03-24] MEDS: MAGNESIUM OXIDE 400 MG TAB (MAG-OX) PO SCH ×2 (09:26→20:16)
[2018-03-24] MEDS: SITagliptin 50 MG TAB (JANUVIA) PO SCH (09:26)
[2018-03-24] MEDS: GABAPENTIN 400 MG CAP PO SCH ×3 (09:26→20:16)
[2018-03-24] MEDS: POTASSIUM CHLORIDE 10 MEQ SR TABLET PO SCH ×2 (09:26→20:17)
[2018-03-24] MEDS: ASPIRIN 81 MG ENTERIC TAB PO SCH (09:27)
[2018-03-24] MEDS: ANEXSIA, NORCO 7.5MG/325MG TABLET(HYDROCODONE/APAP) PO SCH ×2 (09:35→13:04)
[2018-03-24] MEDS: metFORMIN 850 MG TAB PO SCH ×2 (09:36→20:16)
[2018-03-24] MEDS: methylPREDNISolone 4 MG TAB PO SCH (09:36)
--- NOTE | 2018-03-24 09:40 | IPNPDOC ---
Subjective Date Seen The patient was seen on 03/24/18. Subjective Chief Complaint/HPI Pt cont to c/o R knee pain, right lower leg tingling, numbness, weakness. she also has left ankle pain, swelling. She has no new concerns. Nursing reports difficulty with IV site. General: Denies: Fatigue Constitutional: Denies: Chills, Fever Skin: Denies: Rash Pulmonary: Denies: Dyspnea, Cough Cardiovascular: Denies: Chest Pain, Palpitations Gastrointestinal: Denies: Nausea, Vomiting, Diarrhea Musculoskeletal: Reports: Neck Pain, Back Pain, Leg Pain, Foot Pain Neurological: Reports: Weakness Psych: Reports: Mood Normal Objective Physical Examination General Exam: Positive: Alert, Cooperative, No Acute Distress Eye Exam: Negative: Sclera icteric ENT Exam: Positive: Mucous membr. moist/pink Neck Exam: Negative: Lymphadenopathy Chest Exam: Positive: Clear to auscultation, Normal air movement Heart Exam: Positive: Rate Normal, Normal S1, Normal S2; Negative: Murmurs Abdomen Exam: Positive: Normal bowel sounds, Soft; Negative: Tenderness Extremity Exam: Positive: Tenderness (she seems pretty hyperalgesic on the R lower extremity. The distribution of her pain is c/w a L5 distribution or possibly the saphenous medial crural cutaneous nerve, pt with noticable leg size difference which appears to be related more to muscle atrophy ) Psych Exam: Positive: Mood NL, Oriented x 3 Assessment /Plan Problems (1) Radiculopathy of lumbar region Status: Acute Response to Treatment: Uncontrolled Discussed With: Nurse, Patient Problem Specific Plan: Monitor Clinically Problem Text: 03/24 MRI spine results pending, I have asked Ortho to see the pt. Cont with [place], DC IV morphine, adjust PO meds as needed. 03/23 Will obtain MRI L spine, last records is from 2015. Cont with current pain regimen. Enc use of PO meds over IV morphine. Pt is aware. Consider Pain Mgmt consult. She reports mtp falls onto her R knee and feels this is the problem in regards to poor mobililty, will perform MRI of knee as well. 03/22 At this point in time the medications she is getting are too short acting. I added [place] 7.5mg qid and changed the morphine to 2mg Q6h for true breakthrough pain. Will see how this does for her. She has seen the pain clinic in the past and it may be a good idea to consult them again if this doesn't work to significantly relieve her pain. She seems to have irritation/inflammation of a specific nerve or nerve root, so they may be able to target this interventionally. (2) DJD (degenerative joint disease), lumbar Status: Chronic Response to Treatment: Uncontrolled Discussed With: Patient Problem Specific Plan: Monitor Clinically Problem Text: 03/24 Ortho to see the pt. 03/23 I suspect that her recent falls exacerbated longstanding DJD to cause nerve root irritation. (3) Fall from standing Status: Acute Problem Text: It is not clear to me why she had recent falls. We may need to look into spinal stenosis. I have not had a chance to look deeper into her history to see if she has an element of this or if recent imaging has been done. Regardless P/T and O/T will be an important part of her care while here. (4) Chronic pain syndrome Status: Chronic Problem Text: Her acute pain needs to be managed in the light of the fact that she has chronic pain. Additionally, we need to be cautious that her acute pain does not persist long enough to convert to chronic pain. We may need to engage Pain Management to assist with these goals. (5) DM2 (diabetes mellitus, type 2) Status: Chronic Problem Text: She is on her regular medications. AccuChecks and ISS are also added. I do not anticipate any dye studies, so I allowed her metformin to remain on. However, we should be cognizant that she is on metformin right now. (6) Diastolic CHF Status: Chronic Response to Treatment: Stable Discussed With: Nurse, Patient Problem Specific Plan: Monitor Clinically Problem Text: Continue home regimen. (7) Hypothyroid Status: Chronic Response to Treatment: Stable Problem Text: Continue home regimen. (8) Depression Status: Chronic Response to Treatment: Stable Problem Text: Continue current regimen. (9) GERD (gastroesophageal reflux disease) Status: Chronic Problem Text: Continue current regimen. (10) HTN (hypertension) Status: Chronic Problem Text: Continue current regimen. Plan/VTE VTE Prophylaxis Ordered?: Yes (Lovenox was added today) Plan Family Medicine Attending Note: I saw and examined Ms. Jiang, discussed with TOSHIA Erickson. Agree with her note as documented. By the time I saw her this afternoon the results of the MRIs had returned. Interestingly she has a posterior tibial plateau fracture on the right. This seems to the cause of her right knee and lower leg pain. The lumbar MRI certainly shows abnormalities, but this looks to be stable/chronic. Orthopedic has been consulted and a brace was in place by the time I saw her. The patient also complained that her pain was inadequately controlled on the current regimen that included [place] with IV mo rphine when necessary. Additionally she had lost IV access and nursing requested consideration for pain management regimen that did not include intravenous medications. I changed her to Percocet 5/325 one tab for mild to moderate pain and 2 tabs for severe pain. We'll monitor clinically. 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) VS, I&O, 24H, Fishbone Vital Signs/I&O Vital Signs Date Time Temp Pulse Resp B/P (MAP) Pulse Ox O2 Delivery O2 Flow Rate FiO2 03/24/18 06:00 98.0 77 18 113/63 (80) 96 Room Air I&O- Last 24 Hours up to 6 AM 03/24/18 06:00 Intake Total 1620 ml Output Total 0 ml Balance 1620 ml Laboratory Data 24H LABS Laboratory Tests 2 03/23/18 11:56: Bedside Glucose (Misc Panel) 119H 03/23/18 17:20: Bedside Glucose (Misc Panel) 125H 03/23/18 20:54: Bedside Glucose (Misc Panel) 93 03/23/18 20:59: Bedside Glucose (Misc Panel) 99 03/24/18 08:32: Anion Gap 7L, Glomerular Filtration Rate > 60.0, Blood Urea Nitrogen 11, Creatinine 0.50L, Sodium Level 140, Potassium Level 3.0L, Chloride Level 101, Carbon Dioxide Level 32, Calcium Level 8.6L 03/24/18 08:37: Bedside Glucose (Misc Panel) 123H CBC/BMP Laboratory Tests 03/24/18 08:32 Calcium Level 8.6 L LIZ MELENDREZ PA-C Mar 24, 2018 9:40 am Evans Pradhan MD Mar 25, 2018 4:37 pm
[2018-03-24] MEDS ORDERED: POTASSIUM CHLORIDE 10 MEQ SR TABLET PO ONE (10:00)
[2018-03-24] MEDS: ROSUVASTATIN 10 MG TAB (CRESTOR) PO SCH (12:59)
[2018-03-24 14:00] VITALS: BP 118/62
[2018-03-24] MEDS ORDERED: PERCOCET 5MG/325MG TAB PO PRN (16:15)
[2018-03-24] MEDS: PERCOCET 5MG/325MG TAB PO PRN (18:13)
[2018-03-24 19:35] VITALS: BP 129/60
[2018-03-24] MEDS: NORTRIPTYLINE 25 MG CAP PO SCH (20:16)
[2018-03-24] MEDS: RAMELTEON 8 MG TAB (ROZEREM) PO SCH (20:16)
[2018-03-24 22:00] VITALS: BP 115/70
[2018-03-25] MEDS: PERCOCET 5MG/325MG TAB PO PRN ×5 (03:00→23:42)
[2018-03-25] MEDS: CEPACOL LOZENGE PO PRN ×2 (03:39→19:54)
[2018-03-25] MEDS: PSEUDOEPHEDRINE 30 MG TAB PO PRN (03:39)
[2018-03-25] MEDS: LEVOTHYROXINE 75MCG TABLET (0.075MG) PO SCH (05:30)
[2018-03-25 06:00] VITALS: BP 100/61
[2018-03-25 06:48] LABS: BASO # 0.1 10^3/uL (0.0-0.2); BASO % 0.8 % (0.0-1.0); EOS # 0.4 10^3/uL (0.0-0.50); HEMATOCRIT 28.6 % (36.0-47.0); HEMOGLOBIN 9.3 g/dl (12.0-15.5); LYMPH # 3.1 10^3/uL (1.5-4.5); LYMPH % 40.2 % (24.0-44.0); MEAN CORPUSCULAR HEMOGLOBIN 29.2 pg (27.0-33.0); MEAN CORPUSCULAR HGB CONC 32.5 g/dl (32.0-36.5); MEAN CORPUSCULAR VOLUME 89.9 fl (80.0-96.0); MONO # 0.6 10^3/uL (0.0-0.8); MONO % 7.2 % (0.0-5.0); NEUTROPHILS # 3.6 10^3/uL (1.8-7.7); NEUTROPHILS % 46.5 % (36.0-66.0); PLATELET COUNT, AUTOMATED 306 10^3/uL (150-450); RED BLOOD COUNT 3.18 10^6/uL (4.00-5.40); WHITE BLOOD COUNT 7.7 10^3/uL (4.0-10.0)
[2018-03-25 07:11] LABS: BLOOD UREA NITROGEN 11 MG/DL (7-18); CALCIUM LEVEL 8.5 MG/DL (8.8-10.2); CARBON DIOXIDE LEVEL 30 MEQ/L (21-32); CHLORIDE LEVEL 104 MEQ/L (98-107); CREATININE FOR GFR 0.55 MG/DL (0.55-1.30); GLOMERULAR FILTRATION RATE > 60.0 (>45); GLUCOSE, FASTING 109 MG/DL (70-100); MAGNESIUM LEVEL 1.6 MG/DL (1.8-2.4); POTASSIUM SERUM 3.6 MEQ/L (3.5-5.1); SODIUM LEVEL 141 MEQ/L (136-145)
[2018-03-25] MEDS: BUDESONIDE 0.5 MG/2 ML INHALATION SUSPENSION INH SCH ×2 (08:52→20:20)
[2018-03-25] MEDS: ALBUTEROL SULFATE 2.5 MG/0.5 ML INH NEB SOLN NEB SCH ×3 (08:52→20:20)
[2018-03-25] MEDS: HumaLOG INSULIN (NovoLOG) PER UNIT SC SCH ×4 (09:58→20:58)
[2018-03-25] MEDS: DULoxetine 30 MG CAP (CYMBALTA) PO SCH ×2 (09:58→20:56)
[2018-03-25] MEDS: ASPIRIN 81 MG ENTERIC TAB PO SCH (09:58)
[2018-03-25] MEDS: DOCUSATE SODIUM 100 MG CAP PO SCH ×2 (09:58→20:55)
[2018-03-25] MEDS: POTASSIUM CHLORIDE 10 MEQ SR TABLET PO SCH ×2 (09:59→20:57)
[2018-03-25] MEDS: CYCLOBENZAPRINE 10 MG TAB PO SCH ×3 (09:59→20:55)
[2018-03-25] MEDS: ESCITALOPRAM OXALATE 10 MG TAB (LEXAPRO) PO SCH (09:59)
[2018-03-25] MEDS: PANTOPRAZOLE 40MG TAB (PROTONIX) PO SCH (09:59)
[2018-03-25] MEDS: BACLOFEN 10 MG TAB PO SCH ×3 (09:59→20:56)
[2018-03-25] MEDS: FOLIC ACID 1 MG TAB PO SCH (09:59)
[2018-03-25] MEDS: SITagliptin 50 MG TAB (JANUVIA) PO SCH (09:59)
[2018-03-25] MEDS: MAGNESIUM OXIDE 400 MG TAB (MAG-OX) PO SCH ×2 (10:00→20:56)
[2018-03-25] MEDS: GABAPENTIN 400 MG CAP PO SCH ×3 (10:00→20:56)
[2018-03-25] MEDS: ENOXAPARIN 40 MG/0.4 ML SYRINGE (J1650) SC SCH (10:01)
--- NOTE | 2018-03-25 10:12 | CR ---
DATE OF CONSULTATION: 03/24/2018 REASON FOR CONSULTATION: Knee pain, frequent falls. She is a 62-year-old female who was admitted recently after another fall. She said she landed forward and hit her head and has been admitted since a couple of days ago through the emergency room. She describes pain and soreness, especially in both of her knees and her left foot since the fall. She has a known history of visits with our [facility] for bilateral osteoarthritis of the knees. She has had long standing arthritis for several years. She has undergone multiple rounds of Viscoat supplementation injections as recently as 2-1/2 months ago and is actually due to start another round of injections soon. Her pain is chronic, the right is worse than the left. It has been a bit increased since she fell onto that right knee recently. She also has a history of frequent falls. She says she is a high risk fall patient, having multiple falls over the years. She is also a patient of the pain clinic. She sees Dr. Ling. She has injection therapies for her cervical spine. She also apparently has been seeing the pain doctors and spine doctors in [place] over the years and she has been told that she has some type of scar tissue in her spine causing her to have falls intermittently. She remotely had a discectomy by Dr. Salazar many years ago for a herniated disc in her low back. She chronically has troubles with urinary incontinence and irregular bowel function, but no changes recently in her bowel or bladder habits. She says she gets Botox and other treatments for her bladder troubles. She has had a normal bowel movement just a day or two ago and does not complain of numbness or tingling into her perineal area. She intermittently does get a sense of some tingling down her right leg, but presently says there is no numbness or tingling at present in her lower extremities. Mainly bothered by the fact it is difficult for her to bear weight because her right knee is sore. 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 Way back when she was a patient at [facility], she said she had some nerve damage affecting her right hand. Because of her increased pain in the knee and difficulty ambulating and bear weight, I was asked to see her today for this trouble. Otherwise, she has a past history of hypothyroidism, type 2 diabetes, hyperlipidemia, asthma, nonalcoholic hepatitis, history of depression, panic disorder and agoraphobia, osteoporosis, vitamin D deficiency, history of tubular adenoma, obesity, gastric reflux, tremors, iron deficiency anemia, history of right sided pulmonary embolism, obstructive sleep apnea, recurrent urinary tract infections, hypothalamic hyperidrosis and grade 1 diastolic congestive heart failure, as well as, hypertension. Her home medications include - magnesium - MiraLAX - trazodone - Flexeril - Nortriptyline - Cymbalta - Januvia - Nexium - Synthroid - Ventolin - Pulmicort - methylprednisolone - multivitamins - Indapamide - Ergocalciferol - potassium chloride - Celebrex - folate - magnesium oxide - Lipitor - gabapentin - metformin - Lexapro - Rozerem - Breo - Colace Dr. Ann careradha for her medically. ALLERGIES LISTED ARE: - SULFA - QUINOLONES - SIMVASTATIN - THEOPHYLLINE - ROFECOXIB PAST SURGICAL HISTORY: 1. Cholecystectomy. 2. Hysterectomy. 3. Lumbar spine surgery. 4. Rectocele repair. 5. Sinus surgery. 6. Cystoscopy. 7. Arthroscopy of her knees. 8. Bunion surgery on her right foot. SOCIAL HISTORY: She does not smoke or drink alcohol excessively. REVIEW OF SYSTEMS: Health survey is amended to the chart. The notes from prior admissions, some of the notes were reviewed, and the history and physical for this admission was reviewed. When she was admitted, there was a diagnosis of some rhabdomyolysis, hypomagnesemia and hypokalemia. She is getting somewhat better since she has been hospitalized, but still has trouble with weight bearing and has quite a bit of pain and soreness in that right knee. PHYSICAL EXAMINATION: She is a pleasant, alert female. History is obtained from her as well as from her medical record, but presently, she has been afebrile, temperature 98, blood pressure 113/63, pulse oximetry 96% on room air, respirations 18. Her neck was nontender today. She could rotate to the left and right without trouble. She could elevate her arms up over her head with good strength preserved on abduction and external rotation of the shoulders. She was unable to adduct the small finger against the ring finger on the right hand, but normal sensation to light touch of all her fingertips. 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 Good radial pulses were noted. Reflexes were intact biceps, triceps and brachial radialis. Lower extremity examination revealed tenderness about the right knee and the left knee. There was some mild fullness. They are not hot, they are not red, but they are sore with flexion and extension consistent with arthritis and some mild swelling. She had diminished, but intact reflexes of both quads and at the ankles. Negative Babinski was noted. She had normal sensation to light touch throughout both lower extremities. I could palpate dorsalis pedis and posterior tibial pulses. She could dorsiflex and plantar flex her toes, although on the right side was somewhat limited, but she had prior surgery on that great toe noted. LABORATORY STUDIES: Her white count is normal. Hematocrit 30.4. Platelets 290. Coags were normal. Chemistries today with sodium of 140, potassium 3.0, chloride 101, bicarbonate 32, BUN 11, creatinine 0.5, glucose 125, calcium 8.6. IMAGING STUDIES: Reviewed since she has been hospitalized. She had a CT of her head and her neck that did not show any acute pathology. There are some minor degenerative changes of the cervical spine you could see on the cervical spine CT scan. Femur x-ray showed no acute disease. Knee x-ray showed degenerative arthritis. Pelvis x-ray with no hip fractures or obvious acute findings. Tib-fib on the right side showed no acute fractures. Chest x-ray showed no acute disease. MRI scan of the knee on the right side did show severe arthritis, but also evidence of a nondisplaced posteromedial tibial plateau fracture consistent with possible recent fall onto that knee with advanced arthritis. Lumbar spine MRI scan shows there is some discogenic change and bulging, especially at L5-S1 with some compression of the right L5 nerve root in neural foramen, but it is no change when compared to the MR scan that was last done in November of 2015. IMPRESSION AND RECOMMENDATIONS: So trying to put this all together, I think she has a sprained arthritic knee. There is a slight nondisplaced fracture that may be best treated with a brace and protected weight bearing. Will have her work with the therapist. She may be heading for knee replacement some time in the future, but this is how I would treat this acutely for the time being. In terms of her frequent falls, it is difficult to understand the cause. She has seen a neurologist, apparently it was years ago in Dr. Murillo's office. It is possible it may be worthwhile to get an opinion from a neurologist as to if there is a neurologic reason for her frequent falls, but I am not seeing any obvious mechanical trouble other than there is some mild impingement of the L5 nerve root on the right side, but it seems relatively minor. I do not think it easily explains her troubles of frequent falls, although it is possible. If her symptoms persist, again, neurology input may be reasonable and possibly even get spine surgery involved if need be. There may be a role for epidural steroids or even potential surgery if they feel the right L5 nerve root compression seen on the MR scan is of clinical relevance, but that would be probably best determined by neurology consultation and possible EMG nerve conduction study. So we are going to order the therapy and the brace for her knee for the time being.
[2018-03-25] MEDS ORDERED: PERCOCET 5MG/325MG TAB PO PRN (12:45)
--- NOTE | 2018-03-25 12:59 | IPNPDOC ---
Subjective Date Seen The patient was seen on 03/25/18. Subjective Chief Complaint/HPI notes left knee pain today, left medial knee Constitutional: Denies: Chills ENT: Denies: Head Aches Skin: Denies: Rash Pulmonary: Denies: Dyspnea, Cough Cardiovascular: Denies: Chest Pain, Palpitations, Orthopnea Gastrointestinal: Denies: Nausea, Vomiting, Abdominal Pain Genitourinary: Denies: Dysuria Hematologic: Reports: Bruising (along left lateral foot) Endocrine: Denies: Polydipsia, Polyuria Neurological: Denies: Weakness, Numbness Objective Physical Examination General Exam: Positive: Alert, Cooperative, No Acute Distress Eye Exam: Negative: Sclera icteric ENT Exam: Positive: Mucous membr. moist/pink Neck Exam: Negative: Lymphadenopathy Chest Exam: Positive: Clear to auscultation, Normal air movement Heart Exam: Positive: Rate Normal, Normal S1, Normal S2; Negative: Murmurs Abdomen Exam: Positive: Normal bowel sounds, Soft; Negative: Tenderness Extremity Exam: Positive: Tenderness (tender right knee. wearing brace. also notes pain left knee, medially and discomfort in left ankle. swelling and bruising noted lateral foot. tender over left anterior talofibular ligament. left knee very tender along joint line and valgus stress triggers pain with sense of increased "play". pain also reproduced with maximum extension of the knee. ) Psych Exam: Positive: Mood NL, Oriented x 3 Assessment /Plan Problems (1) Tibial plateau fracture, right (2) Left ankle sprain Status: Acute Response to Treatment: Stable Problem Text: This will complicate rehab efforts since significant pain occurs with attempting to stand. Consider AirCast. (3) Fall from standing Status: Acute Problem Text: It is not clear to me why she had recent falls. We may need to look into spinal stenosis. I have not had a chance to look deeper into her history to see if she has an element of this or if recent imaging has been done. Regardless P/T and O/T will be an important part of her care while here. (4) Radiculopathy of lumbar region Status: Acute Response to Treatment: Uncontrolled Discussed With: Nurse, Patient Problem Specific Plan: Monitor Clinically Problem Text: 03/24 MRI spine results pending, I have asked Ortho to see the pt. Cont with [place], DC IV morphine, adjust PO meds as needed. 03/23 Will obtain MRI L spine, last records is from 2015. Cont with current pain regimen. Enc use of PO meds over IV morphine. Pt is aware. Consider Pain Mgmt consult. She reports mtp falls onto her R knee and feels this is the problem in regards to poor mobililty, will perform MRI of knee as well. 03/22 At this point in time the medications she is getting are too short acting. I added [place] 7.5mg qid and changed the morphine to 2mg Q6h for true breakthrough pain. Will see how this does for her. She has seen the pain clinic in the past and it may be a good idea to consult them again if this doesn't work to significantly relieve her pain. She seems to have irritation/inflammation of a specific nerve or nerve root, so they may be able to target this interventionally. (5) DJD (degenerative joint disease), lumbar Status: Chronic Response to Treatment: Uncontrolled Discussed With: Patient Problem Specific Plan: Monitor Clinically Problem Text: 03/25: seen by Dr. Barba and brace ordered for left knee. 03/24 Ortho to see the pt. 03/23 I suspect that her recent falls exacerbated longstanding DJD to cause nerve root irritation. (6) Chronic pain syndrome Status: Chronic Problem Text: 03/25: pain not adequately controlled at present, will change dose frequency but not dose for now. Her acute pain needs to be managed in the light of the fact that she has chronic pain. Additionally, we need to be cautious that her acute pain does not persist long enough to convert to chronic pain. We may need to engage Pain Management to assist with these goals. (7) DM2 (diabetes mellitus, type 2) Status: Chronic Problem Text: She is on her regular medications. AccuChecks and ISS were added to her regimen today. I do not anticipate any dye studies, so I allowed her metformin to remain on. However, we should be cognizant that she is on metformin right now. (8) Diastolic CHF Status: Chronic Response to Treatment: Stable Discussed With: Nurse, Patient Problem Specific Plan: Monitor Clinically Problem Text: Continue home regimen. (9) Hypothyroid Status: Chronic Response to Treatment: Stable Problem Text: Continue home regimen. (10) Depression Status: Chronic Response to Treatment: Stable Problem Text: Continue current regimen. (11) GERD (gastroesophageal reflux disease) Status: Chronic Problem Text: Continue current regimen. (12) HTN (hypertension) Status: Chronic Problem Text: Continue current regimen. (13) Left medial knee pain Status: Acute Problem Text: Will obtain MRI left knee to see if other injury such as medial collateral ligament sprain is present. Plan/VTE VTE Prophylaxis Ordered?: Yes (Lovenox was added today) VS, I&O, 24H, Fishbone Vital Signs/I&O Vital Signs Date Time Temp Pulse Resp B/P (MAP) Pulse Ox O2 Delivery O2 Flow Rate FiO2 03/25/18 10:02 18 Room Air 03/25/18 06:00 96.2 74 100/61 (74) 92 I&O- Last 24 Hours up to 6 AM 03/25/18 06:00 Intake Total 1800 ml Balance 1800 ml Laboratory Data 24H LABS Laboratory Tests 2 03/24/18 17:25: Bedside Glucose (Misc Panel) 137H 03/24/18 19:29: Bedside Glucose (Misc Panel) 84 03/24/18 21:19: Bedside Glucose (Misc Panel) 193H 03/25/18 06:25: Immature Granulocyte % (Auto) 0.3, White Blood Count 7.7, Red Blood Count 3.18L, Hemoglobin 9.3L, Hematocrit 28.6L, Mean Corpuscular Volume 89.9, Mean Corpuscular Hemoglobin 29.2, Mean Corpuscular Hemoglobin Concent 32.5, Red Cell Distribution Width 13.8, Platelet Count 306, Neutrophils (%) (Auto) 46.5, Lymphocytes (%) (Auto) 40.2, Monocytes (%) (Auto) 7.2H, Eosinophils (%) (Auto) 5.0H, Basophils (%) (Auto) 0.8, Neutrophils # (Auto) 3.6, Lymphocytes # (Auto) 3.1, Monocytes # (Auto) 0.6, Eosinophils # (Auto) 0.4, Basophils # (Auto) 0.1, Nucleated Red Blood Cells % (auto) 0.0, Anion Gap 7L, Glomerular Filtration Rate > 60.0, Blood Urea Nitrogen 11, Creatinine 0.55, Sodium Level 141, Potassium Level 3.6, Chloride Level 104, Carbon Dioxide Level 30, Calcium Level 8.5L, Magnesium Level 1.6L 03/25/18 11:30: Bedside Glucose (Misc Panel) 150H CBC/BMP Laboratory Tests 03/25/18 06:25 Red Blood Count 3.18 L, Mean Corpuscular Volume 89.9, Mean Corpuscular Hemo globin 29.2, Mean Corpuscular Hemoglobin Concent 32.5, Red Cell Distribution Width 13.8, Neutrophils (%) (Auto) 46.5, Lymphocytes (%) (Auto) 40.2, Monocytes (%) (Auto) 7.2 H, Eosinophils (%) (Auto) 5.0 H, Basophils (%) (Auto) 0.8, Neutrophils # (Auto) 3.6, Lymphocytes # (Auto) 3.1, Monocytes # (Auto) 0.6, Eosinophils # (Auto) 0.4, Basophils # (Auto) 0.1, Calcium Level 8.5 L Armando North MD Mar 25, 2018 12:59
[2018-03-25 14:00] VITALS: BP 109/56
[2018-03-25] MEDS: ROSUVASTATIN 10 MG TAB (CRESTOR) PO SCH (14:31)
[2018-03-25] MEDS: INDAPAMIDE 1.25MG TABLET PO SCH (14:32)
[2018-03-25] MEDS: methylPREDNISolone 4 MG TAB PO SCH (14:33)
[2018-03-25] MEDS: metFORMIN 850 MG TAB PO SCH ×2 (14:33→20:55)
[2018-03-25] MEDS: NORTRIPTYLINE 25 MG CAP PO SCH (20:55)
[2018-03-25] MEDS: RAMELTEON 8 MG TAB (ROZEREM) PO SCH (20:55)
[2018-03-25] MEDS: TUSSICAPS ER 10/8MG CAPSULE PO PRN (20:57)
[2018-03-25 22:00] VITALS: BP 120/76
[2018-03-26] MEDS: LEVOTHYROXINE 75MCG TABLET (0.075MG) PO SCH (05:22)
[2018-03-26] MEDS: PERCOCET 5MG/325MG TAB PO PRN ×4 (05:22→21:14)
[2018-03-26 06:00] VITALS: BP 152/81
[2018-03-26 06:04] LABS: HEMATOCRIT 30.5 % (36.0-47.0); HEMOGLOBIN 9.6 g/dl (12.0-15.5); MEAN CORPUSCULAR HEMOGLOBIN 29.5 pg (27.0-33.0); MEAN CORPUSCULAR HGB CONC 31.5 g/dl (32.0-36.5); MEAN CORPUSCULAR VOLUME 93.8 fl (80.0-96.0); PLATELET COUNT, AUTOMATED 334 10^3/uL (150-450); RED BLOOD COUNT 3.25 10^6/uL (4.00-5.40); WHITE BLOOD COUNT 7.2 10^3/uL (4.0-10.0)
[2018-03-26] MEDS: HumaLOG INSULIN (NovoLOG) PER UNIT SC SCH ×4 (07:30→21:00)
[2018-03-26] MEDS: ALBUTEROL SULFATE 2.5 MG/0.5 ML INH NEB SOLN NEB SCH ×3 (07:53→20:00)
[2018-03-26] MEDS: BUDESONIDE 0.5 MG/2 ML INHALATION SUSPENSION INH SCH ×2 (07:53→20:00)
[2018-03-26] MEDS: SITagliptin 50 MG TAB (JANUVIA) PO SCH (08:19)
[2018-03-26] MEDS: DULoxetine 30 MG CAP (CYMBALTA) PO SCH ×2 (08:19→21:11)
[2018-03-26] MEDS: ESCITALOPRAM OXALATE 10 MG TAB (LEXAPRO) PO SCH (08:19)
[2018-03-26] MEDS: ASPIRIN 81 MG ENTERIC TAB PO SCH (08:20)
[2018-03-26] MEDS: POTASSIUM CHLORIDE 10 MEQ SR TABLET PO SCH ×2 (08:20→21:11)
[2018-03-26] MEDS: INDAPAMIDE 1.25MG TABLET PO SCH (08:20)
[2018-03-26] MEDS: CYCLOBENZAPRINE 10 MG TAB PO SCH ×3 (08:21→21:12)
[2018-03-26] MEDS: FOLIC ACID 1 MG TAB PO SCH (08:21)
[2018-03-26] MEDS: methylPREDNISolone 4 MG TAB PO SCH (08:21)
[2018-03-26] MEDS: metFORMIN 850 MG TAB PO SCH ×2 (08:22→21:12)
[2018-03-26] MEDS: GABAPENTIN 400 MG CAP PO SCH ×3 (08:22→21:11)
[2018-03-26] MEDS: DOCUSATE SODIUM 100 MG CAP PO SCH ×2 (08:22→21:11)
[2018-03-26] MEDS: PANTOPRAZOLE 40MG TAB (PROTONIX) PO SCH (08:23)
[2018-03-26] MEDS: ENOXAPARIN 40 MG/0.4 ML SYRINGE (J1650) SC SCH (08:23)
[2018-03-26] MEDS: BACLOFEN 10 MG TAB PO SCH ×3 (08:23→21:11)
[2018-03-26] MEDS: MAGNESIUM OXIDE 400 MG TAB (MAG-OX) PO SCH ×2 (08:23→21:12)
--- NOTE | 2018-03-26 08:27 | REP ---
MRI LEFT KNEE WITHOUT CONTRAST: 03/25/2018. Clinical history: Fall, medial joint line pain. Comparison: X-ray 03/21/2018, MRI 12/29/2012. Technique: Axial fat suppressed T2 with coronal and sagittal PD and fat suppressed T2 sequences provided. Unfortunately exam is severely limited by motion artifact particularly on the coronal T2 but also to a somewhat lesser extent sagittal T2, axial T2 and some of the PD sequences. Appreciate the patient and technologist's best efforts for this exam. Findings: The PCL appears grossly intact. There is a transverse meniscal ligament of free anterior to the PCL as seen on the previous study. The ACL shows some contiguous fibers with strain may be suspected it is poorly evaluated on this study. The medial menisci are somewhat displaced peripherally with large peripheral osteophytes in the femoral condyle tibial plateau. Vertically oriented tear through the posterior horn suggested on image 28 of the T2 sagittal sequence. No definite loose body. Degenerative intrameniscal signal and abnormal communication to the inferior articular surface on sagittal image 24 noted. Regardless there is significant degenerative and abnormal signal in that posterior horn. The medial collateral ligamentous complex shows some increased signal and strain. I do not see a popliteal fossa cyst. There is bowing of the medial patellar retinaculum with small amount of fluid in the bursal recess adjacent the medial femoral condyle. No tear of that ligament. The lateral meniscus likewise difficult to evaluate. I cannot confirm a definite tear. No definite loose body. There is chondromalacia in the lateral compartment, grade II - III and grade 3 chondromalacia medial compartment with near [id number] appearance. The patellofemoral joint shows grade II and III chondromalacia. There is suprapatellar effusion extending into the bursal recesses. The lateral collateral ligamentous complex intact. Small amount of fluid deep to the lateral patellar retinaculum of that retinaculum appears grossly intact. Patella without bone bruise or fracture. Femoral condyles grossly intact. The tibial plateau shows a focus of linear oblique signal posteriorly and medially representing a nondisplaced fracture. This fracture line is best seen on the sagittal PD image 18 series 501. Quadriceps and patellar tendons intact. Impression: 1. There is an oblique fracture along the posterior aspect medial tibial plateau with linear dark signal on the PD and hyperintense T2 signal on the fat-suppressed T2 sequence. Abnormal appearance to the posterior horn medial meniscus above this. Partial tearing is noted. Peripheral displacement of the medial meniscus which is subjacent to the peripheral osteophytes seen on those coronal images. No loose bodies grade. There is grade 3 chondromalacia medial compartment. 2. Grade 2 - 3 chondromalacia lateral compartment with no definite meniscal tear. 3. PCL intact, ACL with some strain but not well visualized due to motion artifact. 4. Joint effusion and grade 2 - 3 chondromalacia of the patella and patellofemoral joint. No patellar fracture or focal lesion. Extensor mechanism intact. 5. Strain MCL with the LCL intact and both patellar retinacula intact. No popliteal fossa cyst. Electronically Signed by Suresh Nails MD 03/26/2018 09:57 A
[2018-03-26] MEDS: ROSUVASTATIN 10 MG TAB (CRESTOR) PO SCH (11:34)
[2018-03-26] MEDS: SENOKOT S TAB PO SCH (11:59)
[2018-03-26] MEDS: MIRALAX *UNIT DOSE* 17GM PACKET PO SCH (12:00)
[2018-03-26] MEDS: MOM 30ML SUSPENSION UDC PO SCH (12:00)
--- NOTE | 2018-03-26 13:53 | IPNPDOC ---
Subjective Date Seen The patient was seen on 03/26/18. Subjective Chief Complaint/HPI knees hurt, L ankle hurts. ENT: Denies: Head Aches, Dysphagia Pulmonary: Denies: Dyspnea, Cough, Pleuritic Chest Pain Cardiovascular: Denies: Chest Pain, Palpitations Gastrointestinal: Denies: Nausea, Vomiting, Abdominal Pain Hematologic: Denies: Bruising, Bleeding Excessively Neurological: Denies: Weakness, Numbness Objective Physical Examination General Exam: Positive: Alert, Cooperative, No Acute Distress Eye Exam: Negative: Sclera icteric ENT Exam: Positive: Mucous membr. moist/pink Neck Exam: Negative: Lymphadenopathy Chest Exam: Positive: Clear to auscultation, Normal air movement Heart Exam: Positive: Rate Normal, Normal S1, Normal S2; Negative: Murmurs Abdomen Exam: Positive: Normal bowel sounds, Soft; Negative: Tenderness Extremity Exam: Positive: Tenderness (bilateral knee pain. left ankle pain, bruising noted and some swelling c/w sprain. tender over talofibular ligament ) Psych Exam: Positive: Mood NL, Oriented x 3, Other (hint of pressured speech but not really tangential) Assessment /Plan Problems (1) Radiculopathy of lumbar region Status: Acute Response to Treatment: Uncontrolled Discussed With: Nurse, Patient Problem Specific Plan: Monitor Clinically Problem Text: 03/24 MRI spine results pending, I have asked Ortho to see the pt. Cont with [place], DC IV morphine, adjust PO meds as needed. 03/23 Will obtain MRI L spine, last records is from 2015. Cont with current pain regimen. Enc use of PO meds over IV morphine. Pt is aware. Consider Pain Mgmt consult. She reports mtp falls onto her R knee and feels this is the problem in regards to poor mobililty, will perform MRI of knee as well. 03/22 At this point in time the medications she is getting are too short acting. I added [place] 7.5mg qid and changed the morphine to 2mg Q6h for true breakthrough pain. Will see how this does for her. She has seen the pain clinic in the past and it may be a good idea to consult them again if this doesn't work to significantly relieve her pain. She seems to have irritation/inflammation of a specific nerve or nerve root, so they may be able to target this interventionally. (2) DJD (degenerative joint disease), lumbar Status: Chronic Response to Treatment: Uncontrolled Discussed With: Patient Problem Specific Plan: Monitor Clinically Problem Text: 03/24 Ortho to see the pt. 03/23 I suspect that her recent falls exacerbated longstanding DJD to cause ne rve root irritation. (3) Fall from standing Status: Acute Problem Text: It is not clear to me why she had recent falls. We may need to look into spinal stenosis. I have not had a chance to look deeper into her history to see if she has an element of this or if recent imaging has been done. Regardless P/T and O/T will be an important part of her care while here. (4) Chronic pain syndrome Status: Chronic Problem Text: Her acute pain needs to be managed in the light of the fact that she has chronic pain. Additionally, we need to be cautious that her acute pain does not persist long enough to convert to chronic pain. We may need to engage Pain Management to assist with these goals. (5) DM2 (diabetes mellitus, type 2) Status: Chronic Problem Text: She is on her regular medications. AccuChecks and ISS are also added. I do not anticipate any dye studies, so I allowed her metformin to remain on. However, we should be cognizant that she is on metformin right now. (6) Diastolic CHF Status: Chronic Response to Treatment: Stable Discussed With: Nurse, Patient Problem Specific Plan: Monitor Clinically Problem Text: Continue home regimen. (7) Hypothyroid Status: Chronic Response to Treatment: Stable Problem Text: Continue home regimen. (8) Depression Status: Chronic Response to Treatment: Stable Problem Text: Continue current regimen. (9) GERD (gastroesophageal reflux disease) Status: Chronic Problem Text: Continue current regimen. (10) HTN (hypertension) Status: Chronic Problem Text: Continue current regimen. (11) Left medial tibial plateau fracture Status: Acute Discussed With: Tab Cutter (Ortho specialist to review to decide if treatment/bracing needed.) (12) Tibial plateau fracture, right Status: Acute Response to Treatment: Stable Problem Text: right knee brace when weight bearing. (13) Left ankle sprain Status: Acute Response to Treatment: Stable Problem Text: This will complicate rehab efforts since significant pain occurs with attempting to stand. AirCast requested through PT. Plan/VTE VTE Prophylaxis Ordered?: Yes (Lovenox was added today) VS, I&O, 24H, Fishbone Vital Signs/I&O Vital Signs Date Time Temp Pulse Resp B/P (MAP) Pulse Ox O2 Delivery O2 Flow Rate FiO2 03/26/18 12:32 18 96 03/26/18 11:34 Room Air 03/26/18 06:00 97.2 73 152/81 (104) I&O- Last 24 Hours up to 6 AM 03/26/18 06:00 Intake Total 1800 ml Balance 1800 ml Laboratory Data 24H LABS Laboratory Tests 2 03/25/18 17:06: Bedside Glucose (Misc Panel) 126H 03/25/18 20:41: Bedside Glucose (Misc Panel) 154H 03/26/18 05:35: Nucleated Red Blood Cells % (auto) 0.0 03/26/18 05:51: Bedside Glucose (Misc Panel) 102 03/26/18 11:42: Bedside Glucose (Misc Panel) 172H CBC/BMP Laboratory Tests 03/26/18 05:35 Red Blood Count 3.25 L, Mean Corpuscular Volume 93.8, Mean Corpuscular Hemo globin 29.5, Mean Corpuscular Hemoglobin Concent 31.5 L, Red Cell Distribution Width 13.7 Armando North MD Mar 26, 2018 13:53
[2018-03-26 14:00] VITALS: BP 103/57
[2018-03-26] MEDS: NORTRIPTYLINE 25 MG CAP PO SCH (21:11)
[2018-03-26] MEDS: RAMELTEON 8 MG TAB (ROZEREM) PO SCH (21:12)
[2018-03-26 22:00] VITALS: BP 118/62
[2018-03-26] MEDS ORDERED: ANEXSIA, NORCO 7.5MG/325MG TABLET(HYDROCODONE/APAP) PO PRN (23:15)
[2018-03-27] MEDS: ANEXSIA, NORCO 7.5MG/325MG TABLET(HYDROCODONE/APAP) PO PRN ×4 (02:50→16:21)
[2018-03-27] MEDS: LEVOTHYROXINE 75MCG TABLET (0.075MG) PO SCH (05:47)
[2018-03-27 06:00] VITALS: BP 124/66
[2018-03-27] MEDS: BUDESONIDE 0.5 MG/2 ML INHALATION SUSPENSION INH SCH ×2 (08:21→20:24)
[2018-03-27] MEDS: ALBUTEROL SULFATE 2.5 MG/0.5 ML INH NEB SOLN NEB SCH ×3 (08:21→20:24)
[2018-03-27] MEDS: methylPREDNISolone 4 MG TAB PO SCH (08:26)
[2018-03-27] MEDS: HumaLOG INSULIN (NovoLOG) PER UNIT SC SCH ×4 (08:26→20:57)
[2018-03-27] MEDS: INDAPAMIDE 1.25MG TABLET PO SCH (08:26)
[2018-03-27] MEDS: BACLOFEN 10 MG TAB PO SCH ×3 (08:26→20:56)
[2018-03-27] MEDS: FOLIC ACID 1 MG TAB PO SCH (08:27)
[2018-03-27] MEDS: metFORMIN 850 MG TAB PO SCH ×2 (08:27→20:55)
[2018-03-27] MEDS: POTASSIUM CHLORIDE 10 MEQ SR TABLET PO SCH ×2 (08:27→20:56)
[2018-03-27] MEDS: SENOKOT S TAB PO SCH (08:28)
[2018-03-27] MEDS: ESCITALOPRAM OXALATE 10 MG TAB (LEXAPRO) PO SCH (08:28)
[2018-03-27] MEDS: SITagliptin 50 MG TAB (JANUVIA) PO SCH (08:28)
[2018-03-27] MEDS: DOCUSATE SODIUM 100 MG CAP PO SCH ×2 (08:28→20:55)
[2018-03-27] MEDS: PANTOPRAZOLE 40MG TAB (PROTONIX) PO SCH (08:28)
[2018-03-27] MEDS: MAGNESIUM OXIDE 400 MG TAB (MAG-OX) PO SCH ×2 (08:28→20:55)
[2018-03-27] MEDS: ASPIRIN 81 MG ENTERIC TAB PO SCH (08:28)
[2018-03-27] MEDS: CYCLOBENZAPRINE 10 MG TAB PO SCH ×3 (08:28→20:55)
[2018-03-27] MEDS: MIRALAX *UNIT DOSE* 17GM PACKET PO SCH (08:29)
[2018-03-27] MEDS: ENOXAPARIN 40 MG/0.4 ML SYRINGE (J1650) SC SCH (08:29)
[2018-03-27] MEDS: MOM 30ML SUSPENSION UDC PO SCH (08:29)
[2018-03-27] MEDS: GABAPENTIN 400 MG CAP PO SCH ×3 (08:29→20:55)
[2018-03-27] MEDS: DULoxetine 30 MG CAP (CYMBALTA) PO SCH ×2 (08:29→20:56)
[2018-03-27] MEDS: CEPACOL LOZENGE PO PRN ×4 (09:15→23:10)
--- NOTE | 2018-03-27 09:28 | IPNPDOC ---
Subjective Date Seen The patient was seen on 03/27/18. Subjective Chief Complaint/HPI pain, fall Events since last encounter continues with pain to knees. states hjad severe pain overnight. C/o sore throat for several days. mild relief with cepacol. . Constitutional: Denies: Chills, Fever, Night Sweats Pulmonary: Denies: Dyspnea, Cough Cardiovascular: Denies: Chest Pain, Palpitations, Orthopnea, Paroxysmal Noc. Dyspnea, Lt Headedness Musculoskeletal: Reports: Joint Pain Psych: Reports: Mood Normal; Denies: Depression, Memory Issues Objective Physical Examination General Exam: Positive: Alert, Cooperative, No Acute Distress Eye Exam: Negative: Sclera icteric ENT Exam: Positive: Mucous membr. moist/pink Neck Exam: Negative: Lymphadenopathy Chest Exam: Positive: Clear to auscultation, Normal air movement Heart Exam: Positive: Rate Normal, Normal S1, Normal S2; Negative: Murmurs Abdomen Exam: Positive: Normal bowel sounds, Soft; Negative: Tenderness Extremity Exam: Positive: Tenderness (bilateral knee pain. left ankle pain, bruising noted and some swelling c/w sprain. tender over talofibular ligament ) Psych Exam: Positive: Mood NL, Oriented x 3, Other (hint of pressured speech but not really tangential) Assessment /Plan Assessment Agree with below. I did add Percocet for pain control. She was being fit for her second knee brace right after I left. Problems (1) Radiculopathy of lumbar region Status: Acute Response to Treatment: Uncontrolled Discussed With: Nurse, Patient Problem Specific Plan: Monitor Clinically Problem Text: 03/27/17: MRI unchanged. Ortho consult completed. See recommendations in consult. 03/24 MRI spine results pending, I have asked Ortho to see the pt. Cont with Felton, DC IV morphine, adjust PO meds as needed. 03/23 Will obtain MRI L spine, last records is from 2016. Cont with current pain regimen. Enc use of PO meds over IV morphine. Pt is aware. Consider Pain Mgmt consult. She reports mtp falls onto her R knee and feels this is the problem in regards to poor mobililty, will perform MRI of knee as well. 03/22 At this point in time the medications she is getting are too short acting. I added Felton 7.5mg qid and changed the morphine to 2mg Q6h for true breakthrough pain. Will see how this does for her. She has seen the pain clinic in the past and it may be a good idea to consult them again if this doesn't work to significantly relieve her pain. She seems to have irritation/inflammation of a specific nerve or nerve root, so they may be able to target this interventionally. (2) DJD (degenerative joint disease), lumbar Status: Chronic Response to Treatment: Uncontrolled Discussed With: Patient Problem Specific Plan: Monitor Clinically Problem Text: 03/24 Ortho to see the pt. 03/23 I suspect that her recent falls exacerbated longstanding DJD to cause nerve root irritation. (3) Fall from standing Status: Acute Problem Text: 03/27/18: continue with PT. OT eval today. Potential for ARU. It is not clear to me why she had recent falls. We may need to look into spinal stenosis. I have not had a chance to look deeper into her history to see if she has an element of this or if recent imaging has been done. Regardless P/T and O/T will be an important part of her care while here. (4) Chronic pain syndrome Status: Chronic Problem Text: Her acute pain needs to be managed in the light of the fact that she has chronic pain. Additionally, we need to be cautious that her acute pain does not persist long enough to convert to chronic pain. We may need to engage Pain Management to assist with these goals. (5) DM2 (diabetes mellitus, type 2) Status: Chronic Problem Text: She is on her regular medications. AccuChecks and ISS are also added. I do not anticipate any dye studies, so I allowed her metformin to remain on. However, we should be cognizant that she is on metformin right now. (6) Diastolic CHF Status: Chronic Response to Treatment: Stable Discussed With: Nurse, Patient Problem Specific Plan: Monitor Clinically Problem Text: Continue home regimen. (7) Hypothyroid Status: Chronic Response to Treatment: Stable Problem Text: Continue home regimen. (8) Depression Status: Chronic Response to Treatment: Stable Problem Text: Continue current regimen. (9) GERD (gastroesophageal reflux disease) Status: Chronic Problem Text: Continue current regimen. (10) HTN (hypertension) Status: Chronic Problem Text: Continue current regimen. (11) Left medial tibial plateau fracture Status: Acute Discussed With: Apprenticeship Training Representative (Ortho specialist to review to decide if treatment/bracing needed.) (12) Tibial plateau fracture, right Status: Acute Response to Treatment: Stable Problem Text: right knee brace when weight bearing. (13) Left ankle sprain Status: Acute Response to Treatment: Stable Problem Text: This will complicate rehab efforts since significant pain occurs with attempting to stand. AirCast requested through PT. Plan/VTE VTE Prophylaxis Ordered?: Yes (Lovenox was added today) VS, I&O, 24H, Fishbone Vital Signs/I&O Vital Signs Date Time Temp Pulse Resp B/P (MAP) Pulse Ox O2 Delivery O2 Flow Rate FiO2 03/27/18 08:31 18 Room Air 03/27/18 06:00 96.8 68 124/66 (85) 94 I&O- Last 24 Hours up to 6 AM 03/27/18 06:00 Intake Total 1800 ml Balance 1800 ml Laboratory Data 24H LABS Laboratory Tests 2 03/26/18 11:42: Bedside Glucose (Misc Panel) 172H 03/26/18 17:08: Bedside Glucose (Misc Panel) 142H 03/26/18 20:50: Bedside Glucose (Misc Panel) 138H 03/27/18 05:51: Bedside Glucose (Misc Panel) 108 Lilliana Chan [employer] Mar 27, 2018 09:28 SHADI HELLER DO Mar 28, 2018 19:07
[2018-03-27 09:50] LABS: BASO # 0.1 10^3/uL (0.0-0.2); BASO % 0.7 % (0.0-1.0); EOS # 0.4 10^3/uL (0.0-0.50); EOS % 6.1 % (0.0-3.0); HEMATOCRIT 31.8 % (36.0-47.0); HEMOGLOBIN 10.2 g/dl (12.0-15.5); LYMPH # 3.7 10^3/uL (1.5-4.5); LYMPH % 50.7 % (24.0-44.0); MEAN CORPUSCULAR HEMOGLOBIN 29.4 pg (27.0-33.0); MEAN CORPUSCULAR HGB CONC 32.1 g/dl (32.0-36.5); MEAN CORPUSCULAR VOLUME 91.6 fl (80.0-96.0); MONO # 0.4 10^3/uL (0.0-0.8); MONO % 5.3 % (0.0-5.0); NEUTROPHILS # 2.7 10^3/uL (1.8-7.7); NEUTROPHILS % 36.9 % (36.0-66.0); PLATELET COUNT, AUTOMATED 332 10^3/uL (150-450); RED BLOOD COUNT 3.47 10^6/uL (4.00-5.40); WHITE BLOOD COUNT 7.2 10^3/uL (4.0-10.0)
[2018-03-27 10:23] LABS: ALBUMIN 2.8 GM/DL (3.2-5.2); ALT/SGPT 15 U/L (12-78); BILIRUBIN,TOTAL 0.4 MG/DL (0.2-1.0); BLOOD UREA NITROGEN 17 MG/DL (7-18); CALCIUM LEVEL 9.1 MG/DL (8.8-10.2); CARBON DIOXIDE LEVEL 28 MEQ/L (21-32); CHLORIDE LEVEL 102 MEQ/L (98-107); CREATININE FOR GFR 0.69 MG/DL (0.55-1.30); GLOMERULAR FILTRATION RATE > 60.0 (>45); GLUCOSE, FASTING 135 MG/DL (70-100); MAGNESIUM LEVEL 1.8 MG/DL (1.8-2.4); POTASSIUM SERUM 4.1 MEQ/L (3.5-5.1); SODIUM LEVEL 139 MEQ/L (136-145); TOTAL PROTEIN 6.7 GM/DL (6.4-8.2)
--- NOTE | 2018-03-27 11:59 | IPN ---
DATE OF SERVICE: 03/27/2018 CHIEF COMPLAINT: Left knee tibial plateau fracture HISTORY OF PRESENT ILLNESS: This 62-year-old female is in hospital for a slip and fall and injury to both her knees. There was an MRI obtained of her right knee that showed a minimally displaced tibial plateau fracture that Dr. Zurdo Saenz had seen and assessed her for. This is being treated partial weightbearing with a hinged knee brace unlocked. She continued to complain about pain now in the left side; and, as such, an MRI of the left knee was obtained and shows a similar injury on the left side. She describes the pain on the right side as on the medial side of her knee and on the left side more anteriorly. This stays in the knee and is moderate in nature. She has also been using an air brace on the right ankle. PAST MEDICAL HISTORY: Significant for hypothyroidism, type 2 diabetes, dyslipidemia, asthma, nonalcoholic hepatitis, depression, panic disorder, osteoporosis, vitamin D deficiency, tubular adenoma, obesity, gastroesophageal reflux disease (GERD), tremors, iron-deficiency anemia, right-sided pulmonary embolism, obstructive sleep apnea (NICKI), recurrent urinary tract infections, hypothalamic hyperidrosis, and grade 1 diastolic congestive heart failure, and hypertension. MEDICATIONS: Numerous and already listed by previous providers. SURGICAL HISTORY: 1. Cholecystectomy. 2. Hysterectomy. 3. Lumbar spine surgery. 4. Rectocele repair. 5. Sinus surgery. 6. Cystoscopy. 7. Arthroscopy of her knees. 8. Bunion surgery on her right foot. SOCIAL HISTORY: She does not smoke or drink excessively. REVIEW OF SYSTEMS: Was negative for chills or sweats at night. PHYSICAL EXAMINATION: Today, vital signs: 96.8, 124/66, pulse 68, 94% on room air, respiratory rate 18. Inspection of both her knees revealed minimal swelling. No obvious redness, deformity, or ecchymosis. There is normal sensation in her lower extremities, L2-S1 bilaterally. Good sensation throughout the foot in the superficial and deep peroneal nerves, as well as saphenous, sural, and tibial. Feet are warm and well perfused. Strong pedal pulses. Palpation revealed some mild tenderness in the medial side of the left knee and also in the same spot on the right side. Active range of motion on both sides 0-45 degrees, passive 0-90 degrees. Stability on both sides was normal to anterior drawer, and she was able to do a [id number] test on both sides. MRI imaging was reviewed. On the left knee, this demonstrates oblique fracture along the posterior aspect medial tibial plateau. An abnormal appearance to the posterior horn medial meniscus above this. Partial tearing is noted. Partial peripheral displacement. Minimal displacement of the fracture site. There isalso grade 2-3 chondromalacia of the lateral compartment and grade 3 chondromalacia of the medial compartment. The ligaments appeared intact of the posterior cruciate ligament (PCL) and anterior cruciate ligament (ACL). There is strain at the medial collateral ligament (MCL), appears to be grade 1. There is also some subcutaneous swelling above the knee, mostly anteriorly and medial. ASSESSMENT AND PLAN: This 62-year-old female with bilateral small undisplaced postero-medial tibial plateau fractures. I think that we should treat the same on the left side as Dr. Saenz was treating her on the right. We will obtain a hinged knee brace for the left knee and make her partial weightbearing on both sides. She can transfer but no prolonged weightbearing. We will have physical therapy (PT) and occupational therapy (OT) to assess her for her mobility needs, as well. EVELINE
[2018-03-27] MEDS: ROSUVASTATIN 10 MG TAB (CRESTOR) PO SCH (12:47)
[2018-03-27 14:00] VITALS: BP 126/77
[2018-03-27] MEDS: AMOXICILLIN 875 MG TAB PO SCH ×2 (16:20→20:54)
[2018-03-27 20:00] VITALS: BP 159/78
[2018-03-27] MEDS: RAMELTEON 8 MG TAB (ROZEREM) PO SCH (20:54)
[2018-03-27] MEDS: NORTRIPTYLINE 25 MG CAP PO SCH (20:55)
[2018-03-27] MEDS: PERCOCET 5MG/325MG TAB PO PRN (20:57)
[2018-03-28] MEDS: TUSSICAPS ER 10/8MG CAPSULE PO PRN (00:56)
[2018-03-28] MEDS: PERCOCET 5MG/325MG TAB PO PRN ×4 (00:57→21:56)
[2018-03-28] MEDS: LEVOTHYROXINE 75MCG TABLET (0.075MG) PO SCH (05:58)
[2018-03-28 06:00] VITALS: BP 123/68
[2018-03-28] MEDS: ALBUTEROL SULFATE 2.5 MG/0.5 ML INH NEB SOLN NEB SCH ×3 (07:10→19:07)
[2018-03-28] MEDS: BUDESONIDE 0.5 MG/2 ML INHALATION SUSPENSION INH SCH ×2 (07:10→19:07)
[2018-03-28] MEDS: HumaLOG INSULIN (NovoLOG) PER UNIT SC SCH ×4 (07:30→21:00)
--- NOTE | 2018-03-28 08:44 | IPNPDOC ---
Subjective Date Seen The patient was seen on 03/28/18. Subjective Chief Complaint/HPI Pain with weight bearing. Now has brace for other knee.and will start using this with PT today. No BM x 1 week. no n/v or abd pain Constitutional: Denies: Chills, Fever Pulmonary: Denies: Dyspnea, Cough Cardiovascular: Denies: Chest Pain, Palpitations Gastrointestinal: Reports: Constipation; Denies: Nausea, Vomiting, Abdominal Pain, Diarrhea Genitourinary: Denies: Dysuria, Frequency Objective Physical Examination General Exam: Positive: Alert, Cooperative, No Acute Distress Eye Exam: Negative: Sclera icteric Chest Exam: Positive: Clear to auscultation, Normal air movement Heart Exam: Positive: Rate Normal, Normal S1, Normal S2; Negative: Murmurs Abdomen Exam: Positive: Normal bowel sounds, Soft; Negative: Tenderness Extremity Exam: Positive: Tenderness (bilateral knee pain. left ankle pain, bruising noted and some swelling c/w sprain. tender over talofibular ligament ) Psych Exam: Positive: Mood NL, Oriented x 3 Assessment /Plan Assessment Discussed plan with patient. Agree with below. Problems (1) Tibial plateau fracture, right Status: Acute Response to Treatment: Stable Problem Text: 03/28 - Bilateral Posterior tibial plateau fractures. Per ortho - Bilateral braces to be worn when weight bearing - COnt PT . (2) Strep pharyngitis Status: Acute Problem Text: 03/28 - Amoxicillin day number 2 (3) Constipation Status: Acute Problem Text: 03/28 - No BM x 1 week - Bowel care augmented yesterday - continue to encourage OOB (4) Radiculopathy of lumbar region Status: Acute Response to Treatment: Uncontrolled Discussed With: Nurse, Patient Problem Specific Plan: Monitor Clinically Problem Text: 03/28 - Cont PT and pain control 03/27/17: MRI unchanged. Ortho consult completed. See recommendations in consult. 03/24 MRI spine results pending, I have asked Ortho to see the pt. Cont with FAB Mcnamara IV morphine, adjust PO meds as needed. 03/23 Will obtain MRI L spine, last records is from 2015. Cont with current pain regimen. Enc use of PO meds over IV morphine. Pt is aware. Consider Pain Mgmt consult. She reports mtp falls onto her R knee and feels this is the problem in regards to poor mobililty, will perform MRI of knee as well. 03/22 At this point in time the medications she is getting are too short acting. I added Donner 7.5mg qid and changed the morphine to 2mg Q6h for true breakthrough pain. Will see how this does for her. She has seen the pain clinic in the past and it may be a good idea to consult them again if this doesn't work to significantly relieve her pain. She seems to have irritation/inflammation of a specific nerve or nerve root, so they may be able to target this interventionally. (5) DJD (degenerative joint disease), lumbar Status: Chronic Response to Treatment: Uncontrolled Discussed With: Patient Problem Specific Plan: Monitor Clinically Problem Text: 03/24 Ortho to see the pt. 03/23 I suspect that her recent falls exacerbated longstanding DJD to cause nerve root irritation. (6) Fall from standing Status: Acute Problem Text: 03/27/18: continue with PT. OT eval today. Potential for ARU. It is not clear to me why she had recent falls. We may need to look into spinal stenosis. I have not had a chance to look deeper into her history to see if she has an element of this or if recent imaging has been done. Regardless P/T and O/T will be an important part of her care while here. (7) Chronic pain syndrome Status: Chronic Problem Text: Her acute pain needs to be managed in the light of the fact that she has chronic pain. Additionally, we need to be cautious that her acute pain does not persist long enough to convert to chronic pain. We may need to engage Pain Management to assist with these goals. (8) DM2 (diabetes mellitus, type 2) Status: Chronic Problem Text: She is on her regular medications. AccuChecks and ISS are also added. I do not anticipate any dye studies, so I allowed her metformin to remain on. However, we should be cognizant that she is on metformin right now. (9) Diastolic CHF Status: Chronic Response to Treatment: Stable Discussed With: Nurse, Patient Problem Specific Plan: Monitor Clinically Problem Text: Continue home regimen. (10) Hypothyroid Status: Chronic Response to Treatment: Stable Problem Text: Continue home regimen. (11) Depression Status: Chronic Response to Treatment: Stable Problem Text: Continue current regimen. (12) GERD (gastroesophageal reflux disease) Status: Chronic Problem Text: Continue current regimen. (13) HTN (hypertension) Status: Chronic Problem Text: Continue current regimen. (14) Left ankle sprain Status: Acute Response to Treatment: Stable Problem Text: This will complicate rehab efforts since significant pain occurs with attempting to stand. AirCast requested through PT. Plan/VTE VTE Prophylaxis Ordered?: Yes (Lovenox was added today) Plan Therapy: PT, OT Disposition ARU vs CNF for Subacute REhab today VS, I&O, 24H, Fishbone Vital Signs/I&O Vital Signs Date Time Temp Pulse Resp B/P (MAP) Pulse Ox O2 Delivery O2 Flow Rate FiO2 03/28/18 06:40 16 03/28/18 06:00 96.5 71 123/68 (86) 97 Room Air Laboratory Data 24H LABS Laboratory Tests 2 03/27/18 09:27: Immature Granulocyte % (Auto) 0.3, White Blood Count 7.2, Red Blood Count 3.47L, Hemoglobin 10.2L, Hematocrit 31.8L, Mean Corpuscular Volume 91.6, Mean Corpuscular Hemoglobin 29.4, Mean Corpuscular Hemoglobin Concent 32.1, Red Cell Distribution Width 13.7, Platelet Count 332, Neutrophils (%) (Auto) 36.9, Lymphocytes (%) (Auto) 50.7H, Monocytes (%) (Auto) 5.3H, Eosinophils (%) (Auto) 6.1H, Basophils (%) (Auto) 0.7, Neutrophils # (Auto) 2.7, Lymphocytes # (Auto) 3.7, Monocytes # (Auto) 0.4, Eosinophils # (Auto) 0.4, Basophils # (Auto) 0.1, Nucleated Red Blood Cells % (auto) 0.0, Anion Gap 9, Glomerular Filtration Rate > 60.0, Blood Urea Nitrogen 17#, Creatinine 0.69, Sodium Level 139, Potassium Level 4.1, Chloride Level 102, Carbon Dioxide Level 28, Calcium Level 9.1, Aspartate Amino Transf (AST/SGOT) 15, Alanine Aminotransferase (ALT/SGPT) 15, Alkaline Phosphatase 79, Total Bilirubin 0.4, Total Protein 6.7, Albumin 2.8L, Magnesium Level 1.8, Albumin/Globulin Ratio 0.72L 03/27/18 11:24: Bedside Glucose (Misc Panel) 124H 03/27/18 16:38: Bedside Glucose (Misc Panel) 144H 03/27/18 20:33: Bedside Glucose (Misc Panel) 144H 03/28/18 08:06: Bedside Glucose (Misc Panel) 100 CBC/BMP Laboratory Tests 03/27/18 09:27 Red Blood Count 3.47 L, Mean Corpuscular Volume 91.6, Mean Corpuscular Hemoglobin 29.4, Mean Corpuscular Hemoglobin Concent 32.1, Red Cell Distribution Width 13.7, Neutrophils (%) (Auto) 36.9, Lymphocytes (%) (Auto) 50.7 H, Monocytes (%) (Auto) 5.3 H, Eosinophils (%) (Auto) 6.1 H, Basophils (%) (Auto) 0.7, Neutrophils # (Auto) 2.7, Lymphocytes # (Auto) 3.7, Monocytes # (Auto) 0.4, Eosinophils # (Auto) 0.4, Basophils # (Auto) 0.1, Calcium Level 9.1, Aspartate Amino Transf (AST/SGOT) 15, Alanine Aminotransferase (ALT/SGPT) 15, Alkaline Phosphatase 79, Total Bilirubin 0.4, Total Protein 6.7, Albumin 2.8 L Microbiology Microbiology 03/27/18 Group A Streptococcus Screen ([facility]) - Final, Complete TOBY DAWSON PA-C Mar 28, 2018 08:44 SHADI HELLER DO Mar 28, 2018 19:20
[2018-03-28] MEDS: MOM 30ML SUSPENSION UDC PO SCH (09:12)
[2018-03-28] MEDS: AMOXICILLIN 875 MG TAB PO SCH ×2 (09:12→21:55)
[2018-03-28] MEDS: INDAPAMIDE 1.25MG TABLET PO SCH (09:12)
[2018-03-28] MEDS: MIRALAX *UNIT DOSE* 17GM PACKET PO SCH (09:12)
[2018-03-28] MEDS: BACLOFEN 10 MG TAB PO SCH ×3 (09:12→21:54)
[2018-03-28] MEDS: DOCUSATE SODIUM 100 MG CAP PO SCH ×2 (09:12→21:54)
[2018-03-28] MEDS: GABAPENTIN 400 MG CAP PO SCH ×3 (09:13→21:54)
[2018-03-28] MEDS: POTASSIUM CHLORIDE 10 MEQ SR TABLET PO SCH ×2 (09:13→21:55)
[2018-03-28] MEDS: SENOKOT S TAB PO SCH (09:13)
[2018-03-28] MEDS: PANTOPRAZOLE 40MG TAB (PROTONIX) PO SCH (09:14)
[2018-03-28] MEDS: SITagliptin 50 MG TAB (JANUVIA) PO SCH (09:14)
[2018-03-28] MEDS: methylPREDNISolone 4 MG TAB PO SCH (09:14)
[2018-03-28] MEDS: ASPIRIN 81 MG ENTERIC TAB PO SCH (09:14)
[2018-03-28] MEDS: DULoxetine 30 MG CAP (CYMBALTA) PO SCH ×2 (09:14→21:54)
[2018-03-28] MEDS: metFORMIN 850 MG TAB PO SCH ×2 (09:14→21:55)
[2018-03-28] MEDS: ESCITALOPRAM OXALATE 10 MG TAB (LEXAPRO) PO SCH (09:15)
[2018-03-28] MEDS: FOLIC ACID 1 MG TAB PO SCH (09:15)
[2018-03-28] MEDS: CYCLOBENZAPRINE 10 MG TAB PO SCH ×3 (09:15→21:57)
[2018-03-28] MEDS: MAGNESIUM OXIDE 400 MG TAB (MAG-OX) PO SCH ×2 (09:15→21:55)
[2018-03-28] MEDS: ENOXAPARIN 40 MG/0.4 ML SYRINGE (J1650) SC SCH (09:16)
--- NOTE | 2018-03-28 12:16 | IPN ---
DATE: 03/28/2018 CHIEF COMPLAINT: Bilateral posteromedial minimally displaced tibial plateau fractures. HISTORY OF PRESENT ILLNESS: This 62-year-old female had a ground level slip and fall injury to both her knees. She was found to have small posteriorly based rim of tibial plateau fractures. We have been treating this bilaterally with hinged knee braces. We encouraged her to still transfer, but not be doing any prolonged walking. On today's visit, she is doing well. She is complaining less pain in her knees. She has been doing some ankle pump exercises while in bed. PHYSICAL EXAMINATION: Respiratory rate 16. Temperature 96.5. 97% on room air. Blood pressure 123/68. Pulse rate 71. She is alert and oriented times three. Station is normal. Mood and affect is good and pleasant and positive. Inspection of both her knees reveals skin to be intact. Minimal swelling and bruising. She is able to do 0 to 90 degrees on the left side and 0 to about 50 degrees flexion on the right side. Palpation revealed minimal pain to the knees, but mostly on the medial sides of both knees. She has normal sensation throughout the lower extremities and her feet are warm and well perfused with good tibialis posterior pulses. She was not wearing any braces while in bed, but she did have sequential compression devices (SCDS) in place. LABORATORY EXAMINATION: Nothing performed this morning. Hemoglobin yesterday 10.2. ASSESSMENT AND PLAN: This is a 62-year-old female who can be minimally weight bearing to transfer on both her lower extremities. She is to not be doing any prolonged walking. We have her on Lovenox 40 mg daily for venous thromboembolism (VTE) prophylaxis. Her main goal is to mobilize at this point.
[2018-03-28] MEDS: ROSUVASTATIN 10 MG TAB (CRESTOR) PO SCH (12:45)
[2018-03-28] MEDS: RAMELTEON 8 MG TAB (ROZEREM) PO SCH (21:54)
[2018-03-28] MEDS: CEPACOL LOZENGE PO PRN (21:55)
[2018-03-28] MEDS: NORTRIPTYLINE 25 MG CAP PO SCH (21:55)
[2018-03-28 22:00] VITALS: BP 113/69
[2018-03-28] MEDS: PSEUDOEPHEDRINE 30 MG TAB PO PRN (22:11)
[2018-03-29] MEDS: PERCOCET 5MG/325MG TAB PO PRN ×4 (04:43→23:55)
[2018-03-29] MEDS: LEVOTHYROXINE 75MCG TABLET (0.075MG) PO SCH (05:11)
[2018-03-29 06:00] VITALS: BP 105/71
[2018-03-29 06:42] LABS: HEMATOCRIT 31.7 % (36.0-47.0); HEMOGLOBIN 9.9 g/dl (12.0-15.5); MEAN CORPUSCULAR HEMOGLOBIN 29.1 pg (27.0-33.0); MEAN CORPUSCULAR HGB CONC 31.2 g/dl (32.0-36.5); MEAN CORPUSCULAR VOLUME 93.2 fl (80.0-96.0); PLATELET COUNT, AUTOMATED 378 10^3/uL (150-450)
[2018-03-29] MEDS: HumaLOG INSULIN (NovoLOG) PER UNIT SC SCH (07:30)
[2018-03-29] MEDS: ALBUTEROL SULFATE 2.5 MG/0.5 ML INH NEB SOLN NEB SCH ×2 (08:00→12:27)
[2018-03-29] MEDS: BUDESONIDE 0.5 MG/2 ML INHALATION SUSPENSION INH SCH (08:00)
[2018-03-29] MEDS ORDERED: guaiFENesin DM LIQ 10ML UD PO PRN (08:00)
--- NOTE | 2018-03-29 08:39 | IPNPDOC ---
Subjective Date Seen The patient was seen on 03/29/18. Subjective Chief Complaint/HPI No new issues or concerns. Participated with PT. Motivated but somewhat limited by pain Constitutional: Denies: Chills, Fever Pulmonary: Denies: Dyspnea, Cough Cardiovascular: Denies: Chest Pain, Palpitations Gastrointestinal: Reports: Constipation; Denies: Nausea, Vomiting, Abdominal Pain, Diarrhea Objective Physical Examination General Exam: Positive: Alert, Cooperative, No Acute Distress Eye Exam: Negative: Sclera icteric ENT Exam: Positive: Mucous membr. moist/pink Neck Exam: Negative: Lymphadenopathy Chest Exam: Positive: Clear to auscultation, Normal air movement Heart Exam: Positive: Rate Normal, Normal S1, Normal S2; Negative: Murmurs Abdomen Exam: Positive: Normal bowel sounds, Soft; Negative: Tenderness Extremity Exam: Positive: Tenderness (bilateral knee pain. left ankle pain, bruising noted and some swelling c/w sprain. tender over talofibular ligament ) Psych Exam: Positive: Mood NL, Oriented x 3 Assessment /Plan Problems (1) Tibial plateau fracture, right Status: Acute Response to Treatment: Stable Problem Text: 03/29 - BL knee braces - cont PT with limited WB. Being considered for ARU vs Subacute rehab 03/28 - Bilateral Posterior tibial plateau fractures. Per ortho - Bilateral br aces to be worn when weight bearing - COnt PT . (2) Strep pharyngitis Status: Acute Problem Text: 03/28 - Amoxicillin day number 2 (3) Constipation Status: Acute Problem Text: 03/28 - No BM x 1 week - Bowel care augmented yesterday - continue to encourage OOB (4) Radiculopathy of lumbar region Status: Acute Response to Treatment: Uncontrolled Discussed With: Nurse, Patient Problem Specific Plan: Monitor Clinically Problem Text: 03/28 - Cont PT and pain control 03/27/17: MRI unchanged. Ortho consult completed. See recommendations in consult. 03/24 MRI spine results pending, I have asked Ortho to see the pt. Cont with FAB [place] IV morphine, adjust PO meds as needed. 03/23 Will obtain MRI L spine, last records is from 2015. Cont with current pain regimen. Enc use of PO meds over IV morphine. Pt is aware. Consider Pain Mgmt consult. She reports mtp falls onto her R knee and feels this is the problem in regards to poor mobililty, will perform MRI of knee as well. 1/16 At this point in time the medications she is getting are too short acting. I added [place] 7.5mg qid and changed the morphine to 2mg Q6h for true breakthrough pain. Will see how this does for her. She has seen the pain clinic in the past and it may be a good idea to consult them again if this doesn't work to significantly relieve her pain. She seems to have irritation/inflammation of a specific nerve or nerve root, so they may be able to target this interventionally. (5) DJD (degenerative joint disease), lumbar Status: Chronic Response to Treatment: Uncontrolled Discussed With: Patient Problem Specific Plan: Monitor Clinically Problem Text: 03/24 Ortho to see the pt. 03/23 I suspect that her recent falls exacerbated longstanding DJD to cause nerve root irritation. (6) Fall from standing Status: Acute Problem Text: 03/27/18: continue with PT. OT eval today. Potential for ARU. It is not clear to me why she had recent falls. We may need to look into spinal stenosis. I have not had a chance to look deeper into her history to see if she has an element of this or if recent imaging has been done. Regardless P/T and O/T will be an important part of her care while here. (7) Chronic pain syndrome Status: Chronic Problem Text: Her acute pain needs to be managed in the light of the fact that she has chronic pain. Additionally, we need to be cautious that her acute pain does not persist long enough to convert to chronic pain. We may need to engage Pain Management to assist with these goals. (8) DM2 (diabetes mellitus, type 2) Status: Chronic Problem Text: 03/29 - FSBS well controlled - stop FSBS and SS. Cont Metformin & Januvia She is on her regular medications. AccuChecks and ISS are also added. I do not anticipate any dye studies, so I allowed her metformin to remain on. However, we should be cognizant that she is on metformin right now. (9) Diastolic CHF Status: Chronic Response to Treatment: Stable Discussed With: Nurse, Patient Problem Specific Plan: Monitor Clinically Problem Text: Continue home regimen. (10) Hypothyroid Status: Chronic Response to Treatment: Stable Problem Text: Continue home regimen. (11) Depression Status: Chronic Response to Treatment: Stable Problem Text: Continue current regimen. (12) GERD (gastroesophageal reflux disease) Status: Chronic Problem Text: Continue current regimen. (13) HTN (hypertension) Status: Chronic Problem Text: Continue current regimen. (14) Left ankle sprain Status: Acute Response to Treatment: Stable Problem Text: This will complicate rehab efforts since significant pain occurs with attempting to stand. AirCast requested through PT. Plan/VTE VTE Prophylaxis Ordered?: Yes (Lovenox ) Plan Therapy: PT, OT Disposition Await word from [facility] regarding dispo - SNF for Subacute rehab vs transfer to ARU VS, I&O, 24H, Fishbone Vital Signs/I&O Vital Signs Date Time Temp Pulse Resp B/P (MAP) Pulse Ox O2 Delivery O2 Flow Rate FiO2 03/29/18 06:00 96.4 71 18 105/71 (82) 94 Room Air I&O- Last 24 Hours up to 6 AM 03/29/18 06:00 Intake Total 340 ml Output Total 0 ml Balance 340 ml Laboratory Data 24H LABS Laboratory Tests 2 03/28/18 12:05: Bedside Glucose (Misc Panel) 130H 03/28/18 17:08: Bedside Glucose (Misc Panel) 127H 03/28/18 20:40: Bedside Glucose (Misc Panel) 163H 03/29/18 05:41: Nucleated Red Blood Cells % (auto) 0.0 03/29/18 05:50: Bedside Glucose (Misc Panel) 94 CBC/BMP Laboratory Tests 03/29/18 05:41 Red Blood Count 3.40 L, Mean Corpuscular Volume 93.2, Mean Corpuscular Hemoglobin 29.1, Mean Corpuscular Hemoglobin Concent 31.2 L, Red Cell Distribution Width 13.8 Microbiology Microbiology 03/27/18 Group A Streptococcus Screen ([facility]) - Final, Complete TOBY DAWSON PA-C Mar 29, 2018 08:39
[2018-03-29] MEDS: MOM 30ML SUSPENSION UDC PO SCH (09:17)
[2018-03-29] MEDS: MIRALAX *UNIT DOSE* 17GM PACKET PO SCH (09:17)
[2018-03-29] MEDS: ENOXAPARIN 40 MG/0.4 ML SYRINGE (J1650) SC SCH (09:18)
[2018-03-29] MEDS: BACLOFEN 10 MG TAB PO SCH ×3 (09:18→21:22)
[2018-03-29] MEDS: POTASSIUM CHLORIDE 10 MEQ SR TABLET PO SCH ×2 (09:18→21:23)
[2018-03-29] MEDS: PSEUDOEPHEDRINE 30 MG TAB PO PRN (09:18)
[2018-03-29] MEDS: SENOKOT S TAB PO SCH (09:18)
[2018-03-29] MEDS: INDAPAMIDE 1.25MG TABLET PO SCH (09:19)
[2018-03-29] MEDS: CYCLOBENZAPRINE 10 MG TAB PO SCH ×3 (09:19→21:23)
[2018-03-29] MEDS: ESCITALOPRAM OXALATE 10 MG TAB (LEXAPRO) PO SCH (09:19)
[2018-03-29] MEDS: GABAPENTIN 400 MG CAP PO SCH ×3 (09:20→21:23)
[2018-03-29] MEDS: methylPREDNISolone 4 MG TAB PO SCH (09:20)
[2018-03-29] MEDS: metFORMIN 850 MG TAB PO SCH ×2 (09:20→21:22)
[2018-03-29] MEDS: DULoxetine 30 MG CAP (CYMBALTA) PO SCH ×2 (09:20→21:23)
[2018-03-29] MEDS: ASPIRIN 81 MG ENTERIC TAB PO SCH (09:20)
[2018-03-29] MEDS: SITagliptin 50 MG TAB (JANUVIA) PO SCH (09:20)
[2018-03-29] MEDS: PANTOPRAZOLE 40MG TAB (PROTONIX) PO SCH (09:20)
[2018-03-29] MEDS: DOCUSATE SODIUM 100 MG CAP PO SCH ×2 (09:20→21:22)
[2018-03-29] MEDS: CEPACOL LOZENGE PO PRN (09:21)
[2018-03-29] MEDS: AMOXICILLIN 875 MG TAB PO SCH ×2 (09:21→21:21)
[2018-03-29] MEDS: MAGNESIUM OXIDE 400 MG TAB (MAG-OX) PO SCH ×2 (09:21→21:22)
[2018-03-29] MEDS: FOLIC ACID 1 MG TAB PO SCH (09:21)
[2018-03-29] MEDS: ROSUVASTATIN 10 MG TAB (CRESTOR) PO SCH (11:24)
[2018-03-29] MEDS: RAMELTEON 8 MG TAB (ROZEREM) PO SCH (21:22)
[2018-03-29] MEDS: NORTRIPTYLINE 25 MG CAP PO SCH (21:23)
[2018-03-29 22:00] VITALS: BP 112/60
[2018-03-30] MEDS: ALBUTEROL SULFATE 2.5 MG/0.5 ML INH NEB SOLN NEB SCH ×4 (01:00→20:00)
[2018-03-30] MEDS: BUDESONIDE 0.5 MG/2 ML INHALATION SUSPENSION INH SCH ×3 (01:00→20:00)
[2018-03-30] MEDS: LEVOTHYROXINE 75MCG TABLET (0.075MG) PO SCH (05:38)
[2018-03-30 06:00] VITALS: BP 113/64
[2018-03-30 06:53] LABS: APPEARANCE, URINE CLEAR (CLEAR); BACTERIA, URINE AUTO NEGATIVE (NEGATIVE); BILIRUBIN, URINE AUTO NEGATIVE (NEGATIVE); BLOOD, URINE BLOOD NEGATIVE (NEGATIVE); COLOR, URINE STRAW (YELLOW); GLUCOSE, URINE (UA) AUTO NEGATIVE (NEGATIVE); KETONE, URINE AUTO NEGATIVE (NEGATIVE); LEUKOCYTE ESTERASE, URINE AUTO NEGATIVE (NEGATIVE); MUCUS, URINE SMALL (NEGATIVE); NITRITE, URINE AUTO NEGATIVE (NEGATIVE); PROTEIN, URINE AUTO NEGATIVE (NEGATIVE); RBC, URINE AUTO 1 /HPF (0-3); SPECIFIC GRAVITY URINE AUTO 1.009 (1.002-1.035); SQUAMOUS EPITHELIAL CELL UR AU 1 /HPF (0-6); UROBILINOGEN, URINE AUTO 0.2 mg/dL (0.0-2.0); WBC, URINE AUTO 0 /HPF (0-3)
[2018-03-30] MEDS: DULoxetine 30 MG CAP (CYMBALTA) PO SCH ×2 (08:41→22:09)
[2018-03-30] MEDS: ESCITALOPRAM OXALATE 10 MG TAB (LEXAPRO) PO SCH (08:41)
[2018-03-30] MEDS: MOM 30ML SUSPENSION UDC PO SCH (08:41)
[2018-03-30] MEDS: INDAPAMIDE 1.25MG TABLET PO SCH (08:41)
[2018-03-30] MEDS: MIRALAX *UNIT DOSE* 17GM PACKET PO SCH (08:41)
[2018-03-30] MEDS: GABAPENTIN 400 MG CAP PO SCH ×3 (08:41→22:08)
[2018-03-30] MEDS: CEPACOL LOZENGE PO PRN ×3 (08:42→17:23)
[2018-03-30] MEDS: SITagliptin 50 MG TAB (JANUVIA) PO SCH (08:42)
[2018-03-30] MEDS: PSEUDOEPHEDRINE 30 MG TAB PO PRN (08:42)
[2018-03-30] MEDS: AMOXICILLIN 875 MG TAB PO SCH ×2 (08:42→22:10)
[2018-03-30] MEDS: DOCUSATE SODIUM 100 MG CAP PO SCH ×2 (08:42→22:08)
[2018-03-30] MEDS: MAGNESIUM OXIDE 400 MG TAB (MAG-OX) PO SCH ×2 (08:42→22:09)
[2018-03-30] MEDS: POTASSIUM CHLORIDE 10 MEQ SR TABLET PO SCH ×2 (08:42→22:08)
[2018-03-30] MEDS: CYCLOBENZAPRINE 10 MG TAB PO SCH ×3 (08:43→22:09)
[2018-03-30] MEDS: metFORMIN 850 MG TAB PO SCH ×2 (08:43→22:09)
[2018-03-30] MEDS: PERCOCET 5MG/325MG TAB PO PRN ×2 (08:44→17:24)
[2018-03-30] MEDS: PANTOPRAZOLE 40MG TAB (PROTONIX) PO SCH (08:44)
[2018-03-30] MEDS: ASPIRIN 81 MG ENTERIC TAB PO SCH (08:44)
[2018-03-30] MEDS: BACLOFEN 10 MG TAB PO SCH ×3 (08:44→22:09)
[2018-03-30] MEDS: methylPREDNISolone 4 MG TAB PO SCH (08:44)
[2018-03-30] MEDS: FOLIC ACID 1 MG TAB PO SCH (08:44)
[2018-03-30] MEDS: SENOKOT S TAB PO SCH (08:44)
[2018-03-30] MEDS: ENOXAPARIN 40 MG/0.4 ML SYRINGE (J1650) SC SCH (08:45)
[2018-03-30] MEDS: ROSUVASTATIN 10 MG TAB (CRESTOR) PO SCH (11:40)
--- NOTE | 2018-03-30 12:08 | DSES ---
DATE OF ADMISSION: 03/23/2018 DATE OF DISCHARGE: 04/07/2018 BRIEF HISTORY AND PHYSICAL: The patient is a 62-year-old patient with a history of cervical and thoracic, lumbar degenerative joint disease and disc herniation requiring multiple epidurals presented to the emergency room after multiple falls for the last 3 days. It just happens suddenly. Her legs get weak. She gets acute low back pain radiating toward the lateral portion of her knees. It causes her right foot to buckle and she falls. Past medical history is significant for the above-mentioned degenerative joint disease, persistent asthma, diabetes, hypothyroidism, hyperlipidemia, nonalcoholic steatohepatitis, depression, panic disorder, agoraphobia, osteoporosis, gastroesophageal reflux disease, essential tremor, bilateral knee osteoarthritis, iron deficiency anemia, history of pulmonary embolism and obstructive sleep apnea, hypothalamic hyperhidrosis, insomnia, hypertension, grade 1 diastolic heart failure. HOSPITAL COURSE: The patient was admitted for pain, weakness and frequent falls. She was given intravenous (IV) morphine for pain, for secondary radiculopathy of the lumbar region. [place] was added. Physical therapy (PT) and occupational therapy (OT) were initiated. She continued to complain of knee pain, and imaging of the knee to include an MRI showed a minimally displaced plateau fracture on the right. She was treated with partial weightbearing with a hinged knee brace unlocked. Left knee MRI was then obtained showing a minimally displaced tibial plateau fracture in the posterior medial aspect of the left knee and so a similar brace was obtained for that knee as well. At this point, her pain is managed with Percocet. She is getting physical therapy, wearing bilateral knee braces as above with limited weightbearing and will require subacute rehabilitation. 2. Strep pharyngitis. The patient complained of a sore throat on 03/26/2018. Strep gas was positive. She was started on amoxicillin, and today is day 4 of 7. 3. Constipation. She has chronic constipation issues. Bowel care has been augmented, and she has had a bowel movement on 03/29/2018. Will need to continue bowel care as she is on narcotics and has limited mobility. DISPOSITION: The patient is stable for intermediate facility (SNF) status today. Medications will be dictated at the time of her transfer to the [facility]. DISCHARGE DIAGNOSES: 1. Bilateral posterior medial tibial plateau fracture. 2. Frequent falls. 3. Radiculopathy of the lumbar region. 4. Degenerative joint disease of the lumbar spine. 5. Chronic pain syndrome. 6. Strep pharyngitis. 7. Diabetes mellitus, type 2. 8. Congestive heart failure, diastolic. 9. Hypothyroidism. 10. Depression. 11. Hypertension. 12. Left ankle sprain. 13. Gastroesophageal reflux disease. ADDENDUM: She is being discharged to [facility] with rehabilitation. Her discharge medications are as follows: - lorazepam 1 mg by mouth twice daily as needed anxiety - oxycodone 5/325 two tablets every 6 hours as needed for severa pain, one tablet every 4 hours as needed for mild to moderate pain - MiraLax one packet daily - Januvia 100 mg daily - albuterol sulfate nebulizer 2.5 mg inhaled three times daily and as needed for shortness of breath - Proventil HFA two puffs inhaled every 4 hours as needed for shortness of breath - aspirin 81 mg daily - Baclofen 10 mg by mouth three times daily - Pulmicort 0.5 mg inhaled twice daily - [id number] mg by mouth three times daily - Colace 200 mg by mouth twice daily - Cymbalta 60 mg by mouth twice daily - Lexapro 10 mg by mouth daily - Nexium 40 mg daily - Breo Ellipta 200/25 inhaled daily - folic acid 1 mg by mouth daily - gabapentin 800 mg three times daily - indapamide 2.5 mg daily - Synthroid 75 mcg daily - magnesium oxide 400 mg by mouth twice daily - metformin 850 mg by mouth twice daily - methylprednisone 2 mg by mouth daily - nortriptyline 25 mg by mouth daily at bedtime - Nystatin powder topically twice daily as needed for redness, irritation in skin folds - potassium chloride 40 mEq by mouth daily - Rozerem 8 mg by mouth daily at bedtime - rosuvastatin 40 mg by mouth daily at bedtime - vitamin D 50,000 units every other week - Voltaren Gel topically four times daily to bilateral knees DISCHARGE PLAN: Discharge to [facility] for further rehabilitation. Her diet is consistent carbohydrate. Addendum added critical access hospital 04/07/2018 1003 Jaclyn Dale PA-C [facility]
[2018-03-30 14:00] VITALS: BP 102/70
[2018-03-30 22:00] VITALS: BP 113/71
[2018-03-30] MEDS: RAMELTEON 8 MG TAB (ROZEREM) PO SCH (22:08)
[2018-03-30] MEDS: NORTRIPTYLINE 25 MG CAP PO SCH (22:10)
[2018-03-31] MEDS: PERCOCET 5MG/325MG TAB PO PRN ×3 (03:53→17:49)
[2018-03-31 06:00] VITALS: BP 128/69
[2018-03-31] MEDS: LEVOTHYROXINE 75MCG TABLET (0.075MG) PO SCH (06:06)
[2018-03-31] MEDS: PSEUDOEPHEDRINE 30 MG TAB PO PRN (06:06)
[2018-03-31] MEDS: BUDESONIDE 0.5 MG/2 ML INHALATION SUSPENSION INH SCH ×2 (07:49→20:25)
[2018-03-31] MEDS: ALBUTEROL SULFATE 2.5 MG/0.5 ML INH NEB SOLN NEB SCH ×3 (07:49→20:25)
[2018-03-31] MEDS: MIRALAX *UNIT DOSE* 17GM PACKET PO SCH (09:00)
[2018-03-31] MEDS: MOM 30ML SUSPENSION UDC PO SCH (09:42)
[2018-03-31] MEDS: INDAPAMIDE 1.25MG TABLET PO SCH (09:43)
[2018-03-31] MEDS: ENOXAPARIN 40 MG/0.4 ML SYRINGE (J1650) SC SCH (09:43)
[2018-03-31] MEDS: AMOXICILLIN 875 MG TAB PO SCH ×2 (09:44→21:15)
[2018-03-31] MEDS: SITagliptin 50 MG TAB (JANUVIA) PO SCH (09:44)
[2018-03-31] MEDS: metFORMIN 850 MG TAB PO SCH ×2 (09:44→21:16)
[2018-03-31] MEDS: GABAPENTIN 400 MG CAP PO SCH ×3 (09:45→21:15)
[2018-03-31] MEDS: CYCLOBENZAPRINE 10 MG TAB PO SCH ×3 (09:45→21:16)
[2018-03-31] MEDS: SENOKOT S TAB PO SCH (09:45)
[2018-03-31] MEDS: DULoxetine 30 MG CAP (CYMBALTA) PO SCH ×2 (09:46→21:17)
[2018-03-31] MEDS: POTASSIUM CHLORIDE 10 MEQ SR TABLET PO SCH ×2 (09:47→21:17)
[2018-03-31] MEDS: ASPIRIN 81 MG ENTERIC TAB PO SCH (09:48)
[2018-03-31] MEDS: DOCUSATE SODIUM 100 MG CAP PO SCH ×2 (09:48→21:16)
[2018-03-31] MEDS: MAGNESIUM OXIDE 400 MG TAB (MAG-OX) PO SCH ×2 (09:48→21:16)
[2018-03-31] MEDS: FOLIC ACID 1 MG TAB PO SCH (09:49)
[2018-03-31] MEDS: ESCITALOPRAM OXALATE 10 MG TAB (LEXAPRO) PO SCH (09:49)
[2018-03-31] MEDS: BACLOFEN 10 MG TAB PO SCH ×3 (09:51→21:17)
[2018-03-31] MEDS: methylPREDNISolone 4 MG TAB PO SCH (09:51)
[2018-03-31] MEDS: PANTOPRAZOLE 40MG TAB (PROTONIX) PO SCH (09:55)
[2018-03-31] MEDS: ROSUVASTATIN 10 MG TAB (CRESTOR) PO SCH (11:30)
[2018-03-31] MEDS: NORTRIPTYLINE 25 MG CAP PO SCH (21:16)
[2018-03-31] MEDS: RAMELTEON 8 MG TAB (ROZEREM) PO SCH (21:16)
[2018-04-01] MEDS: PERCOCET 5MG/325MG TAB PO PRN ×4 (01:44→22:27)
[2018-04-01 06:00] VITALS: BP 113/63
[2018-04-01] MEDS: LEVOTHYROXINE 75MCG TABLET (0.075MG) PO SCH (06:40)
[2018-04-01] MEDS: BUDESONIDE 0.5 MG/2 ML INHALATION SUSPENSION INH SCH ×2 (07:09→20:00)
[2018-04-01] MEDS: ALBUTEROL SULFATE 2.5 MG/0.5 ML INH NEB SOLN NEB SCH ×3 (07:10→20:00)
[2018-04-01 07:15] LABS: HEMATOCRIT 31.9 % (36.0-47.0); HEMOGLOBIN 10.3 g/dl (12.0-15.5); MEAN CORPUSCULAR HEMOGLOBIN 29.5 pg (27.0-33.0); MEAN CORPUSCULAR HGB CONC 32.3 g/dl (32.0-36.5); MEAN CORPUSCULAR VOLUME 91.4 fl (80.0-96.0); PLATELET COUNT, AUTOMATED 395 10^3/uL (150-450); RED BLOOD COUNT 3.49 10^6/uL (4.00-5.40); WHITE BLOOD COUNT 11.7 10^3/uL (4.0-10.0)
[2018-04-01] MEDS: DOCUSATE SODIUM 100 MG CAP PO SCH ×2 (09:00→22:25)
[2018-04-01] MEDS: AMOXICILLIN 875 MG TAB PO SCH ×2 (09:29→22:26)
[2018-04-01] MEDS: GABAPENTIN 400 MG CAP PO SCH ×3 (09:29→22:25)
[2018-04-01] MEDS: MAGNESIUM OXIDE 400 MG TAB (MAG-OX) PO SCH ×2 (09:30→22:24)
[2018-04-01] MEDS: BACLOFEN 10 MG TAB PO SCH ×3 (09:30→22:26)
[2018-04-01] MEDS: ASPIRIN 81 MG ENTERIC TAB PO SCH (09:30)
[2018-04-01] MEDS: PANTOPRAZOLE 40MG TAB (PROTONIX) PO SCH (09:30)
[2018-04-01] MEDS: CYCLOBENZAPRINE 10 MG TAB PO SCH ×3 (09:30→22:26)
[2018-04-01] MEDS: DULoxetine 30 MG CAP (CYMBALTA) PO SCH ×2 (09:31→22:24)
[2018-04-01] MEDS: ESCITALOPRAM OXALATE 10 MG TAB (LEXAPRO) PO SCH (09:31)
[2018-04-01] MEDS: POTASSIUM CHLORIDE 10 MEQ SR TABLET PO SCH ×2 (09:31→22:25)
[2018-04-01] MEDS: INDAPAMIDE 1.25MG TABLET PO SCH (09:32)
[2018-04-01] MEDS: FOLIC ACID 1 MG TAB PO SCH (09:32)
[2018-04-01] MEDS: SITagliptin 50 MG TAB (JANUVIA) PO SCH (09:32)
[2018-04-01] MEDS: methylPREDNISolone 4 MG TAB PO SCH (09:33)
[2018-04-01] MEDS: ENOXAPARIN 40 MG/0.4 ML SYRINGE (J1650) SC SCH (09:33)
[2018-04-01] MEDS: SENOKOT S TAB PO SCH (09:38)
[2018-04-01] MEDS: MIRALAX *UNIT DOSE* 17GM PACKET PO SCH (09:38)
[2018-04-01] MEDS: MOM 30ML SUSPENSION UDC PO SCH (09:38)
[2018-04-01] MEDS: metFORMIN 850 MG TAB PO SCH ×2 (09:49→22:24)
[2018-04-01] MEDS: ROSUVASTATIN 10 MG TAB (CRESTOR) PO SCH (12:24)
[2018-04-01] MEDS: PSEUDOEPHEDRINE 30 MG TAB PO PRN (16:04)
[2018-04-01] MEDS: RAMELTEON 8 MG TAB (ROZEREM) PO SCH (22:24)
[2018-04-01] MEDS: NORTRIPTYLINE 25 MG CAP PO SCH (22:25)
[2018-04-02] MEDS: PERCOCET 5MG/325MG TAB PO PRN ×3 (04:37→19:46)
[2018-04-02] MEDS: LEVOTHYROXINE 75MCG TABLET (0.075MG) PO SCH (05:33)
[2018-04-02 06:00] VITALS: BP 105/69
[2018-04-02] MEDS: BUDESONIDE 0.5 MG/2 ML INHALATION SUSPENSION INH SCH ×2 (08:21→19:37)
[2018-04-02] MEDS: ALBUTEROL SULFATE 2.5 MG/0.5 ML INH NEB SOLN NEB SCH ×3 (08:21→19:37)
[2018-04-02] MEDS: SENOKOT S TAB PO SCH (09:00)
[2018-04-02] MEDS: DOCUSATE SODIUM 100 MG CAP PO SCH ×2 (09:00→20:58)
[2018-04-02] MEDS: MIRALAX *UNIT DOSE* 17GM PACKET PO SCH (09:35)
[2018-04-02] MEDS: ENOXAPARIN 40 MG/0.4 ML SYRINGE (J1650) SC SCH (09:36)
[2018-04-02] MEDS: GABAPENTIN 400 MG CAP PO SCH ×3 (09:36→20:58)
[2018-04-02] MEDS: MOM 30ML SUSPENSION UDC PO SCH (09:36)
[2018-04-02] MEDS: metFORMIN 850 MG TAB PO SCH ×2 (09:36→20:58)
[2018-04-02] MEDS: PANTOPRAZOLE 40MG TAB (PROTONIX) PO SCH (09:37)
[2018-04-02] MEDS: FOLIC ACID 1 MG TAB PO SCH (09:37)
[2018-04-02] MEDS: ESCITALOPRAM OXALATE 10 MG TAB (LEXAPRO) PO SCH (09:37)
[2018-04-02] MEDS: INDAPAMIDE 1.25MG TABLET PO SCH (09:37)
[2018-04-02] MEDS: ASPIRIN 81 MG ENTERIC TAB PO SCH (09:37)
[2018-04-02] MEDS: methylPREDNISolone 4 MG TAB PO SCH (09:37)
[2018-04-02] MEDS: SITagliptin 50 MG TAB (JANUVIA) PO SCH (09:38)
[2018-04-02] MEDS: AMOXICILLIN 875 MG TAB PO SCH ×2 (09:38→20:58)
[2018-04-02] MEDS: DULoxetine 30 MG CAP (CYMBALTA) PO SCH ×2 (09:38→20:59)
[2018-04-02] MEDS: MAGNESIUM OXIDE 400 MG TAB (MAG-OX) PO SCH ×2 (09:38→20:57)
[2018-04-02] MEDS: CYCLOBENZAPRINE 10 MG TAB PO SCH ×3 (09:38→20:58)
[2018-04-02] MEDS: BACLOFEN 10 MG TAB PO SCH ×3 (09:38→20:58)
[2018-04-02] MEDS: POTASSIUM CHLORIDE 10 MEQ SR TABLET PO SCH ×2 (09:39→20:59)
[2018-04-02] MEDS: ROSUVASTATIN 10 MG TAB (CRESTOR) PO SCH (12:11)
[2018-04-02] MEDS: NORTRIPTYLINE 25 MG CAP PO SCH (20:57)
[2018-04-02] MEDS: RAMELTEON 8 MG TAB (ROZEREM) PO SCH (20:58)
[2018-04-03] MEDS: LEVOTHYROXINE 75MCG TABLET (0.075MG) PO SCH (06:11)
[2018-04-03] MEDS: PERCOCET 5MG/325MG TAB PO PRN ×3 (06:12→18:55)
[2018-04-03] MEDS: ALBUTEROL SULFATE 2.5 MG/0.5 ML INH NEB SOLN NEB SCH ×3 (08:27→19:38)
[2018-04-03] MEDS: BUDESONIDE 0.5 MG/2 ML INHALATION SUSPENSION INH SCH ×2 (08:27→19:37)
[2018-04-03] MEDS: ENOXAPARIN 40 MG/0.4 ML SYRINGE (J1650) SC SCH (08:41)
[2018-04-03] MEDS: MIRALAX *UNIT DOSE* 17GM PACKET PO SCH (08:41)
[2018-04-03] MEDS: MOM 30ML SUSPENSION UDC PO SCH (08:41)
[2018-04-03] MEDS: ASPIRIN 81 MG ENTERIC TAB PO SCH (08:41)
[2018-04-03] MEDS: ESCITALOPRAM OXALATE 10 MG TAB (LEXAPRO) PO SCH (08:42)
[2018-04-03] MEDS: methylPREDNISolone 4 MG TAB PO SCH (08:42)
[2018-04-03] MEDS: FOLIC ACID 1 MG TAB PO SCH (08:42)
[2018-04-03] MEDS: PANTOPRAZOLE 40MG TAB (PROTONIX) PO SCH (08:42)
[2018-04-03] MEDS: SITagliptin 50 MG TAB (JANUVIA) PO SCH (08:42)
[2018-04-03] MEDS: metFORMIN 850 MG TAB PO SCH ×2 (08:42→20:20)
[2018-04-03] MEDS: DOCUSATE SODIUM 100 MG CAP PO SCH ×2 (08:43→20:21)
[2018-04-03] MEDS: INDAPAMIDE 1.25MG TABLET PO SCH (08:43)
[2018-04-03] MEDS: MAGNESIUM OXIDE 400 MG TAB (MAG-OX) PO SCH ×2 (08:43→20:20)
[2018-04-03] MEDS: DULoxetine 30 MG CAP (CYMBALTA) PO SCH ×2 (08:43→20:21)
[2018-04-03] MEDS: CYCLOBENZAPRINE 10 MG TAB PO SCH ×3 (08:43→20:22)
[2018-04-03] MEDS: SENOKOT S TAB PO SCH (08:43)
[2018-04-03] MEDS: AMOXICILLIN 875 MG TAB PO SCH ×2 (08:43→20:20)
[2018-04-03] MEDS: BACLOFEN 10 MG TAB PO SCH ×3 (08:44→20:22)
[2018-04-03] MEDS: GABAPENTIN 400 MG CAP PO SCH ×3 (08:44→20:21)
[2018-04-03] MEDS: POTASSIUM CHLORIDE 10 MEQ SR TABLET PO SCH ×2 (08:44→20:22)
[2018-04-03] MEDS: ROSUVASTATIN 10 MG TAB (CRESTOR) PO SCH (12:03)
[2018-04-03 12:40] VITALS: BP 121/72
[2018-04-03] MEDS: NORTRIPTYLINE 25 MG CAP PO SCH (20:21)
[2018-04-03] MEDS: RAMELTEON 8 MG TAB (ROZEREM) PO SCH (20:21)
[2018-04-03 22:00] VITALS: BP 107/75
[2018-04-04] MEDS: PERCOCET 5MG/325MG TAB PO PRN ×3 (05:21→22:11)
[2018-04-04] MEDS: LEVOTHYROXINE 75MCG TABLET (0.075MG) PO SCH (05:21)
[2018-04-04 06:00] VITALS: BP 107/75
[2018-04-04 06:27] LABS: HEMATOCRIT 35.5 % (36.0-47.0); HEMOGLOBIN 11.2 g/dl (12.0-15.5); MEAN CORPUSCULAR HEMOGLOBIN 29.5 pg (27.0-33.0); MEAN CORPUSCULAR HGB CONC 31.5 g/dl (32.0-36.5); MEAN CORPUSCULAR VOLUME 93.4 fl (80.0-96.0); PLATELET COUNT, AUTOMATED 448 10^3/uL (150-450); WHITE BLOOD COUNT 8.7 10^3/uL (4.0-10.0)
[2018-04-04 08:00] VITALS: BP 136/74
[2018-04-04] MEDS: BUDESONIDE 0.5 MG/2 ML INHALATION SUSPENSION INH SCH ×2 (08:56→20:00)
[2018-04-04] MEDS: ALBUTEROL SULFATE 2.5 MG/0.5 ML INH NEB SOLN NEB SCH ×2 (08:56→20:00)
[2018-04-04] MEDS: SENOKOT S TAB PO SCH (09:00)
[2018-04-04] MEDS: MOM 30ML SUSPENSION UDC PO SCH (09:00)
[2018-04-04] MEDS: MIRALAX *UNIT DOSE* 17GM PACKET PO SCH (09:00)
[2018-04-04] MEDS: BACLOFEN 10 MG TAB PO SCH ×3 (09:47→21:57)
[2018-04-04] MEDS: DOCUSATE SODIUM 100 MG CAP PO SCH ×2 (09:48→21:59)
[2018-04-04] MEDS: INDAPAMIDE 1.25MG TABLET PO SCH (09:48)
[2018-04-04] MEDS: ASPIRIN 81 MG ENTERIC TAB PO SCH (09:48)
[2018-04-04] MEDS: DULoxetine 30 MG CAP (CYMBALTA) PO SCH ×2 (09:49→21:58)
[2018-04-04] MEDS: MAGNESIUM OXIDE 400 MG TAB (MAG-OX) PO SCH ×2 (09:49→21:58)
[2018-04-04] MEDS: PANTOPRAZOLE 40MG TAB (PROTONIX) PO SCH (09:49)
[2018-04-04] MEDS: GABAPENTIN 400 MG CAP PO SCH ×3 (09:50→21:57)
[2018-04-04] MEDS: FOLIC ACID 1 MG TAB PO SCH (09:50)
[2018-04-04] MEDS: metFORMIN 850 MG TAB PO SCH ×2 (09:50→21:59)
[2018-04-04] MEDS: SITagliptin 50 MG TAB (JANUVIA) PO SCH (09:50)
[2018-04-04] MEDS: ESCITALOPRAM OXALATE 10 MG TAB (LEXAPRO) PO SCH (09:50)
[2018-04-04] MEDS: CYCLOBENZAPRINE 10 MG TAB PO SCH ×3 (09:51→21:59)
[2018-04-04] MEDS: AMOXICILLIN 875 MG TAB PO SCH ×2 (09:51→21:59)
[2018-04-04] MEDS: POTASSIUM CHLORIDE 10 MEQ SR TABLET PO SCH ×2 (09:51→21:58)
[2018-04-04] MEDS: methylPREDNISolone 4 MG TAB PO SCH (09:52)
[2018-04-04] MEDS: ENOXAPARIN 40 MG/0.4 ML SYRINGE (J1650) SC SCH (09:52)
[2018-04-04] MEDS: ROSUVASTATIN 10 MG TAB (CRESTOR) PO SCH (11:09)
[2018-04-04 14:00] VITALS: BP 112/76
[2018-04-04] MEDS: KETOROLAC 30 MG/ML VIAL (J1885) IM PRN (14:27)
[2018-04-04] MEDS: LORazepam 1 MG TAB PO PRN (14:27)
--- NOTE | 2018-04-04 14:39 | IPN ---
DATE: 04/04/2018 I was called by the nursing staff Trini is having increased pain in her right knee. She has a tibial plateau fracture of both knees. She said that over the weekend she woke and found her right leg had fallen off the edge of the bed. She has had severe pain since then. Per nursing staff, she is in inconsolable pain and is very anxious about her knee and has not responded to a double dose of Percocet. Her last renal function was normal. I have ordered Toradol 30 mg intramuscular (IM) every 6 hours as needed, some Ativan as needed for anxiety. Dr. Dewitt is on service with us. He will be evaluating her later this afternoon, but at this point, she has augmented pain therapy orders entered.
--- NOTE | 2018-04-04 16:52 | IPNPDOC ---
Subjective Date Seen The patient was seen on 04/04/18. Subjective Chief Complaint/HPI Pt was examined at bedside. She reported right knee stabbing/numbing pain 9/10 in right prepetellar and infrapetellar region which has been worsen since Tuesday. She stated Tuesday morning she found out she woke up with her right leg dangling off the bed with right heel against the floor and right knee in a weird angle. Right knee pain worsen with palpation/tough/movement; alleviated with pain medication. She reports left knee pain is about 5/10 compared to right. Denies fever, chills, SOB, chest pain, palpitation, or abdominal pain. Patient desires to have a right knee X-ray done General: Denies: Chills Constitutional: Denies: Chills, Fever Pulmonary: Denies: Dyspnea Cardiovascular: Denies: Chest Pain, Palpitations Gastrointestinal: Denies: Abdominal Pain, Constipation Musculoskeletal: Reports: Other Symptoms (Bilateral knee pain) Neurological: Denies: Change in speech, Confusion Psych: Denies: Memory Issues Objective Physical Examination General Exam: Positive: Alert, Cooperative, Mild Distress Eye Exam: Positive: Conjunctiva & lids normal; Negative: Sclera icteric ENT Exam: Positive: Atraumatic, Mucous membr. moist/pink Neck Exam: Negative: Lymphadenopathy Chest Exam: Positive: Clear to auscultation, Normal air movement Heart Exam: Positive: Rate Normal, Regular Rhythm, Normal S1, Normal S2; Negative: Murmurs Abdomen Exam: Positive: Normal bowel sounds, Soft; Negative: Tenderness Extremity Exam: Positive: Normal pulses (B/l dorsalis pedis present; b/l anterior tibial artery pulses felt), Tenderness (bilateral knee pain. bruising noted and swelling noted on right thigh/suprapetellar region. Tenderness of bilateral knee upon palpation), Swelling (b/l knee) Skin Exam: Positive: Nl turgor and temperature Neuro Exam: Positive: Normal Speech, Other (Bilateral LE strength +5/5) Psych Exam: Positive: Mood NL, Memory Intact, Oriented x 3 Assessment /Plan Problems (1) Tibial plateau fracture, right Status: Acute Response to Treatment: Stable Problem Text: 04/04. Increased right knee pain since 04/02 after pt dangling off the bed. Toradal IM added. Complete Knee X ray ordered. Cont PT, OT, and other pain control. Cont to monitor the pt 03/29 - BL knee braces - cont PT with limited WB. Being considered for ARU vs Subacute rehab 03/28 - Bilateral Posterior tibial plateau fractures. Per ortho - Bilateral braces to be worn when weight bearing - COnt PT . (2) Strep pharyngitis Status: Acute Problem Text: 04/04 - Amoxicillin day number 8/10 (3) Constipation Status: Resolved Problem Text: 04/04 Resolved. Pt reported 5 BM yesterday (4) Radiculopathy of lumbar region Status: Acute Response to Treatment: Uncontrolled Discussed With: Nurse, Patient Problem Specific Plan: Monitor Clinically Problem Text: 04/04 Cont PT, OT, and pain control 03/28 - Cont PT and pain control 03/27/17: MRI unchanged. Ortho consult completed. See recommendations in consult. 03/24 MRI spine results pending, I have asked Ortho to see the pt. Cont with [place], DC IV morphine, adjust PO meds as needed. 03/23 Will obtain MRI L spine, last records is from 2015. Cont with current pain regimen. Enc use of PO meds over IV morphine. Pt is aware. Consider Pain Mgmt consult. She reports mtp falls onto her R knee and feels this is the problem in regards to poor mobililty, will perform MRI of knee as well. 03/22 At this point in time the medications she is getting are too short acting. I added [place] 7.5mg qid and changed the morphine to 2mg Q6h for true breakthrough pain. Will see how this does for her. She has seen the pain clinic in the past and it may be a good idea to consult them again if this doesn't work to significantly relieve her pain. She seems to have irritation/inflammation of a specific nerve or nerve root, so they may be able to target this interventionally. (5) DJD (degenerative joint disease), lumbar Status: Chronic Response to Treatment: Uncontrolled Discussed With: Patient Problem Specific Plan: Monitor Clinically Problem Text: Cont PT and pain control 03/24 Ortho to see the pt. 03/23 I suspect that her recent falls exacerbated longstanding DJD to cause nerve root irritation. (6) Fall from standing Status: Acute Problem Text: Cont PT, OT, and pain control 03/27/18: continue with PT. OT eval today. Potential for ARU. It is not clear to me why she had recent falls. We may need to look into spinal stenosis. I have not had a chance to look deeper into her history to see if she has an element of this or if recent imaging has been done. Regardless P/T and O/ T will be an important part of her care while here. (7) Chronic pain syndrome Status: Chronic Problem Text: Her acute pain needs to be managed in the light of the fact that she has chronic pain. Additionally, we need to be cautious that her acute pain does not persist long enough to convert to chronic pain. We may need to engage Pain Management to assist with these goals. (8) DM2 (diabetes mellitus, type 2) Status: Chronic Problem Text: 04/04 Blood sugar on BMP roughly stable. Cont Metformin and Januvia 03/29 - FSBS well controlled - stop FSBS and SS. Cont Metformin & Januvia She is on her regular medications. AccuChecks and ISS are also added. I do not a nticipate any dye studies, so I allowed her metformin to remain on. However, we should be cognizant that she is on metformin right now. (9) Diastolic CHF Status: Chronic Response to Treatment: Stable Discussed With: Nurse, Patient Problem Specific Plan: Monitor Clinically Problem Text: Continue home regimen. (10) Hypothyroid Status: Chronic Response to Treatment: Stable Problem Text: Continue home regimen. (11) Depression Status: Chronic Response to Treatment: Stable Problem Text: Continue current regimen. (12) GERD (gastroesophageal reflux disease) Status: Chronic Problem Text: Continue current regimen. (13) HTN (hypertension) Status: Chronic Problem Text: BP stable. Continue current regimen. (14) Left ankle sprain Status: Acute Response to Treatment: Stable Problem Text: This will complicate rehab efforts since significant pain occurs with attempting to stand. AirCast requested through PT. Plan/VTE VTE Prophylaxis Ordered?: Yes (Lovenox ) Plan Activity: Continue Current Therapy: PT, OT VS, I&O, 24H, Fishbone Vital Signs/I&O Vital Signs Date Time Temp Pulse Resp B/P (MAP) Pulse Ox O2 Delivery O2 Flow Rate FiO2 04/04/18 14:00 97.8 80 18 112/76 (88) 98 Room Air I&O- Last 24 Hours up to 6 AM 04/04/18 06:00 Intake Total 1320 ml Balance 1320 ml Laboratory Data 24H LABS Laboratory Tests 2 04/04/18 05:38: Nucleated Red Blood Cells % (auto) 0.0 CBC/BMP Laboratory Tests 04/04/18 05:38 Red Blood Count 3.80 L, Mean Corpuscular Volume 93.4, Mean Corpuscular Hemogl obin 29.5, Mean Corpuscular Hemoglobin Concent 31.5 L, Red Cell Distribution Width 13.7 Microbiology Microbiology 03/27/18 Group A Streptococcus Screen ([facility]) - Final, Complete YOUSUF OLIVER DO Apr 04, 2018 16:52
--- NOTE | 2018-04-04 17:19 | REP ---
Right knee four views: Comparison is 01/14/2015. There is advanced tricompartment osteoarthritis. This is unchanged. There is no acute fracture or dislocation. There is a small suprapatellar effusion as an interval change. Mineralization is normal. There are no unusual calcifications. Impression: Advanced tricompartment osteoarthritis, unchanged. Small suprapatellar effusion as an interval change. Electronically Signed by Mariano Mcghee MD 04/04/2018 05:11 P
[2018-04-04] MEDS: RAMELTEON 8 MG TAB (ROZEREM) PO SCH (21:58)
[2018-04-04] MEDS: NORTRIPTYLINE 25 MG CAP PO SCH (21:59)
[2018-04-05] MEDS: LEVOTHYROXINE 75MCG TABLET (0.075MG) PO SCH (05:46)
[2018-04-05] MEDS: LORazepam 1 MG TAB PO PRN ×2 (05:46→18:15)
[2018-04-05] MEDS: KETOROLAC 30 MG/ML VIAL (J1885) IM PRN ×2 (05:47→18:51)
[2018-04-05 06:00] VITALS: BP 125/74
[2018-04-05 06:57] LABS: HEMOGLOBIN 10.6 g/dl (12.0-15.5); MEAN CORPUSCULAR HEMOGLOBIN 28.9 pg (27.0-33.0); MEAN CORPUSCULAR HGB CONC 32.1 g/dl (32.0-36.5); MEAN CORPUSCULAR VOLUME 89.9 fl (80.0-96.0); PLATELET COUNT, AUTOMATED 436 10^3/uL (150-450); RED BLOOD COUNT 3.67 10^6/uL (4.00-5.40); WHITE BLOOD COUNT 12.5 10^3/uL (4.0-10.0)
[2018-04-05 07:12] LABS: BLOOD UREA NITROGEN 19 MG/DL (7-18); CALCIUM LEVEL 9.1 MG/DL (8.8-10.2); CARBON DIOXIDE LEVEL 25 MEQ/L (21-32); CHLORIDE LEVEL 105 MEQ/L (98-107); CREATININE FOR GFR 0.69 MG/DL (0.55-1.30); GLOMERULAR FILTRATION RATE > 60.0 (>45); GLUCOSE, FASTING 107 MG/DL (70-100); POTASSIUM SERUM 4.4 MEQ/L (3.5-5.1); SODIUM LEVEL 138 MEQ/L (136-145)
[2018-04-05] MEDS: BUDESONIDE 0.5 MG/2 ML INHALATION SUSPENSION INH SCH ×2 (08:00→20:00)
[2018-04-05] MEDS: ALBUTEROL SULFATE 2.5 MG/0.5 ML INH NEB SOLN NEB SCH ×3 (08:00→20:00)
[2018-04-05] MEDS: MIRALAX *UNIT DOSE* 17GM PACKET PO SCH (09:00)
[2018-04-05] MEDS: MOM 30ML SUSPENSION UDC PO SCH (09:00)
[2018-04-05] MEDS: MAGNESIUM OXIDE 400 MG TAB (MAG-OX) PO SCH ×2 (09:18→21:00)
[2018-04-05] MEDS: ENOXAPARIN 40 MG/0.4 ML SYRINGE (J1650) SC SCH (09:19)
[2018-04-05] MEDS: GABAPENTIN 400 MG CAP PO SCH ×3 (09:19→21:52)
[2018-04-05] MEDS: DOCUSATE SODIUM 100 MG CAP PO SCH ×2 (09:19→21:00)
[2018-04-05] MEDS: SITagliptin 50 MG TAB (JANUVIA) PO SCH (09:19)
[2018-04-05] MEDS: metFORMIN 850 MG TAB PO SCH ×2 (09:19→21:53)
[2018-04-05] MEDS: INDAPAMIDE 1.25MG TABLET PO SCH (09:19)
[2018-04-05] MEDS: AMOXICILLIN 875 MG TAB PO SCH ×2 (09:19→21:53)
[2018-04-05] MEDS: DULoxetine 30 MG CAP (CYMBALTA) PO SCH ×2 (09:19→21:54)
[2018-04-05] MEDS: SENOKOT S TAB PO SCH (09:20)
[2018-04-05] MEDS: methylPREDNISolone 4 MG TAB PO SCH (09:20)
[2018-04-05] MEDS: POTASSIUM CHLORIDE 10 MEQ SR TABLET PO SCH ×2 (09:20→21:55)
[2018-04-05] MEDS: BACLOFEN 10 MG TAB PO SCH ×3 (09:20→21:54)
[2018-04-05] MEDS: PANTOPRAZOLE 40MG TAB (PROTONIX) PO SCH (09:20)
[2018-04-05] MEDS: CYCLOBENZAPRINE 10 MG TAB PO SCH ×3 (09:20→21:53)
[2018-04-05] MEDS: ASPIRIN 81 MG ENTERIC TAB PO SCH (09:20)
[2018-04-05] MEDS: FOLIC ACID 1 MG TAB PO SCH (09:20)
[2018-04-05] MEDS: ESCITALOPRAM OXALATE 10 MG TAB (LEXAPRO) PO SCH (09:20)
[2018-04-05] MEDS: ROSUVASTATIN 10 MG TAB (CRESTOR) PO SCH (11:58)
[2018-04-05] MEDS: RAMELTEON 8 MG TAB (ROZEREM) PO SCH (21:53)
[2018-04-05] MEDS: NORTRIPTYLINE 25 MG CAP PO SCH (21:53)
[2018-04-05 22:00] VITALS: BP 129/79
[2018-04-06] MEDS: KETOROLAC 30 MG/ML VIAL (J1885) IM PRN ×4 (01:04→22:27)
[2018-04-06 06:00] VITALS: BP 120/86
[2018-04-06] MEDS: LORazepam 1 MG TAB PO PRN (06:20)
[2018-04-06] MEDS: LEVOTHYROXINE 75MCG TABLET (0.075MG) PO SCH (06:20)
[2018-04-06] MEDS: BUDESONIDE 0.5 MG/2 ML INHALATION SUSPENSION INH SCH ×2 (08:00→20:00)
[2018-04-06] MEDS: ALBUTEROL SULFATE 2.5 MG/0.5 ML INH NEB SOLN NEB SCH ×3 (08:00→20:00)
[2018-04-06] MEDS: MIRALAX *UNIT DOSE* 17GM PACKET PO SCH (09:00)
[2018-04-06] MEDS: MOM 30ML SUSPENSION UDC PO SCH (09:00)
[2018-04-06] MEDS: SENOKOT S TAB PO SCH (09:00)
[2018-04-06] MEDS: DOCUSATE SODIUM 100 MG CAP PO SCH ×2 (09:00→20:34)
[2018-04-06] MEDS: SITagliptin 50 MG TAB (JANUVIA) PO SCH (09:12)
[2018-04-06] MEDS: INDAPAMIDE 1.25MG TABLET PO SCH (09:12)
[2018-04-06] MEDS: ENOXAPARIN 40 MG/0.4 ML SYRINGE (J1650) SC SCH (09:12)
[2018-04-06] MEDS: GABAPENTIN 400 MG CAP PO SCH ×3 (09:13→20:33)
[2018-04-06] MEDS: methylPREDNISolone 4 MG TAB PO SCH (09:13)
[2018-04-06] MEDS: BACLOFEN 10 MG TAB PO SCH ×3 (09:13→20:34)
[2018-04-06] MEDS: metFORMIN 850 MG TAB PO SCH ×2 (09:13→20:34)
[2018-04-06] MEDS: PANTOPRAZOLE 40MG TAB (PROTONIX) PO SCH (09:13)
[2018-04-06] MEDS: POTASSIUM CHLORIDE 10 MEQ SR TABLET PO SCH ×2 (09:13→20:34)
[2018-04-06] MEDS: ASPIRIN 81 MG ENTERIC TAB PO SCH (09:14)
[2018-04-06] MEDS: ESCITALOPRAM OXALATE 10 MG TAB (LEXAPRO) PO SCH (09:14)
[2018-04-06] MEDS: PERCOCET 5MG/325MG TAB PO PRN (09:14)
[2018-04-06] MEDS: FOLIC ACID 1 MG TAB PO SCH (09:14)
[2018-04-06] MEDS: MAGNESIUM OXIDE 400 MG TAB (MAG-OX) PO SCH ×2 (09:14→20:33)
[2018-04-06] MEDS: CYCLOBENZAPRINE 10 MG TAB PO SCH ×3 (09:14→20:35)
[2018-04-06] MEDS: DULoxetine 30 MG CAP (CYMBALTA) PO SCH ×2 (09:14→20:33)
[2018-04-06] MEDS: ROSUVASTATIN 10 MG TAB (CRESTOR) PO SCH (13:07)
[2018-04-06] MEDS: RAMELTEON 8 MG TAB (ROZEREM) PO SCH (20:33)
[2018-04-06] MEDS: NORTRIPTYLINE 25 MG CAP PO SCH (20:34)
[2018-04-07] MEDS: LEVOTHYROXINE 75MCG TABLET (0.075MG) PO SCH (05:23)
[2018-04-07] MEDS: KETOROLAC 30 MG/ML VIAL (J1885) IM PRN (05:48)
[2018-04-07 06:00] VITALS: BP 120/80
[2018-04-07] MEDS: LORazepam 1 MG TAB PO PRN (06:34)
[2018-04-07] MEDS: ALBUTEROL SULFATE 2.5 MG/0.5 ML INH NEB SOLN NEB SCH (07:55)
[2018-04-07] MEDS: BUDESONIDE 0.5 MG/2 ML INHALATION SUSPENSION INH SCH (07:55)
[2018-04-07] MEDS: ESCITALOPRAM OXALATE 10 MG TAB (LEXAPRO) PO SCH (08:34)
[2018-04-07] MEDS: BACLOFEN 10 MG TAB PO SCH (08:34)
[2018-04-07] MEDS: CYCLOBENZAPRINE 10 MG TAB PO SCH (08:34)
[2018-04-07] MEDS: ASPIRIN 81 MG ENTERIC TAB PO SCH (08:34)
[2018-04-07] MEDS: GABAPENTIN 400 MG CAP PO SCH (08:34)
[2018-04-07] MEDS: PANTOPRAZOLE 40MG TAB (PROTONIX) PO SCH (08:34)
[2018-04-07] MEDS: INDAPAMIDE 1.25MG TABLET PO SCH (08:35)
[2018-04-07] MEDS: MAGNESIUM OXIDE 400 MG TAB (MAG-OX) PO SCH (08:35)
[2018-04-07] MEDS: SITagliptin 50 MG TAB (JANUVIA) PO SCH (08:35)
[2018-04-07] MEDS: FOLIC ACID 1 MG TAB PO SCH (08:35)
[2018-04-07] MEDS: DULoxetine 30 MG CAP (CYMBALTA) PO SCH (08:35)
[2018-04-07] MEDS: metFORMIN 850 MG TAB PO SCH (08:35)
[2018-04-07] MEDS: SENOKOT S TAB PO SCH (08:36)
[2018-04-07] MEDS: ENOXAPARIN 40 MG/0.4 ML SYRINGE (J1650) SC SCH (08:36)
[2018-04-07] MEDS: POTASSIUM CHLORIDE 10 MEQ SR TABLET PO SCH (08:36)
[2018-04-07] MEDS: MIRALAX *UNIT DOSE* 17GM PACKET PO SCH (08:37)
[2018-04-07] MEDS: MOM 30ML SUSPENSION UDC PO SCH (08:37)
[2018-04-07] MEDS: DOCUSATE SODIUM 100 MG CAP PO SCH (08:37)
[2018-04-07] MEDS ORDERED: PEG1POW PO (09:40)
[2018-04-07] MEDS ORDERED: LORA1TAB12 PO (09:40)
[2018-04-07] MEDS ORDERED: PERCOCET PO ×2 (09:40)
[2018-04-07] MEDS ORDERED: SITA50TAB PO (09:40)
[2018-04-07] MEDS: methylPREDNISolone 4 MG TAB PO SCH (10:20)
== END 2018-04-07 10:25 | DRG 342 ==
LOC: M ED 13:29 → M ED INP 19:17 → M MS4PR 20:44 → OBSVTOIN 03-23 17:00 → M MS5PR 03-24 21:00
PROVIDERS: ADMIT Family Medicine; ATTEND Family Medicine
DX: S82.144A Nondisplaced bicondylar fracture of right tibia, initial encounter for closed fracture (principal); M62.82 Rhabdomyolysis; I11.0 Hypertensive heart disease with heart failure; K75.81 Nonalcoholic steatohepatitis (NASH); E83.42 Hypomagnesemia; I50.32 Chronic diastolic (congestive) heart failure; E11.9 Type 2 diabetes mellitus without complications; E78.5 Hyperlipidemia, unspecified; R29.6 Repeated falls; J45.50 Severe persistent asthma, uncomplicated; E03.9 Hypothyroidism, unspecified; F32.9 Major depressive disorder, single episode, unspecified; F40.01 Agoraphobia with panic disorder; M81.0 Age-related osteoporosis without current pathological fracture; K21.9 Gastro-esophageal reflux disease without esophagitis; G89.4 Chronic pain syndrome; E87.6 Hypokalemia; G25.0 Essential tremor; M17.0 Bilateral primary osteoarthritis of knee; M51.16 Intervertebral disc disorders with radiculopathy, lumbar region; D50.9 Iron deficiency anemia, unspecified; G47.33 Obstructive sleep apnea (adult) (pediatric); Z86.711 Personal history of pulmonary embolism; R61 Generalized hyperhidrosis; Z90.49 Acquired absence of other specified parts of digestive tract; Z90.710 Acquired absence of both cervix and uterus; Z88.1 Allergy status to other antibiotic agents; Z88.2 Allergy status to sulfonamides; Z88.8 Allergy status to other drugs, medicaments and biological substances; Z79.82 Long term (current) use of aspirin; Z79.84 Long term (current) use of oral hypoglycemic drugs; W19.XXXA Unspecified fall, initial encounter; Y92.009 Unspecified place in unspecified non-institutional (private) residence as the place of occurrence of the external cause; S82.145A Nondisplaced bicondylar fracture of left tibia, initial encounter for closed fracture; J02.0 Streptococcal pharyngitis; K59.00 Constipation, unspecified; Z79.899 Other long term (current) drug therapy

== ENCOUNTER → 2018-06-08 | Outpatient (REF) | payer OTHER ==
[~2018-06-08] MED LIST changes: -/ADVA50050; -/ADVA50050 INH; -/CELE20CA PO; -/DULO30CA; -/DULO30CA PO; -/ESCI10TA PO; -/ESOM40CA PO; +ADVA1AER2; +ADVA1AER2 INH; -ASPI1TAB PO; +ASPI81TA26 PO; +CYMB1CAP5; +CYMB1CAP5 PO; -DULO30CA PO; +DULO30CA9 PO; +LEVA0.3131 INH; -LEVA31IN INH; +LORA1TAB12 PO; +NEXI1CAP3 PO; +PEG1POW PO; +PERCOCET PO; +POTA1TAB14 PO; +SITA50TAB PO
[2018-06-08 14:04] LABS: HEMATOCRIT 39.1 % (36.0-47.0)
[2018-06-08 14:12] LABS: HEMOGLOBIN A1c 6.9 %
[2018-06-08 14:26] LABS: ALBUMIN 3.7 GM/DL (3.2-5.2); ALT/SGPT 19 U/L (12-78); BILIRUBIN,TOTAL 0.6 MG/DL (0.2-1.0); BLOOD UREA NITROGEN 11 MG/DL (7-18); CARBON DIOXIDE LEVEL 31 MEQ/L (21-32); CHLORIDE LEVEL 101 MEQ/L (98-107); CREATININE FOR GFR 0.62 MG/DL (0.55-1.30); GLOMERULAR FILTRATION RATE > 60.0 (>45); GLUCOSE, FASTING 124 MG/DL (70-100); POTASSIUM SERUM 3.9 MEQ/L (3.5-5.1); SODIUM LEVEL 139 MEQ/L (136-145); TOTAL PROTEIN 7.2 GM/DL (6.4-8.2)
[2018-06-08 14:32] LABS: VITAMIN B12 LEVEL 464 PG/ML (247-911)
[2018-06-10 08:23] LABS: CREATININE, URINE 183.9 mg/dL (20.0-300.0)
== END ==
LOC: M SFHCPLAZ 10:17
PROVIDERS: ATTEND Family Medicine
DX: E55.9 Vitamin D deficiency, unspecified (principal); E11.9 Type 2 diabetes mellitus without complications; E53.8 Deficiency of other specified B group vitamins

== ENCOUNTER → 2018-09-13 | Outpatient (REF) | payer OTHER ==
[~2018-09-13] MED LIST changes: -ROSU40TA3 PO; +ROSU40TA4 PO
[2018-09-13 13:21] LABS: BASO # 0.1 10^3/uL (0.0-0.2); BASO % 0.7 % (0.0-1.0); EOS # 0.4 10^3/uL (0.0-0.50); EOS % 5.9 % (0.0-3.0); HEMATOCRIT 37.1 % (36.0-47.0); LYMPH # 2.7 10^3/uL (1.5-4.5); LYMPH % 36.3 % (24.0-44.0); MEAN CORPUSCULAR HEMOGLOBIN 29.6 pg (27.0-33.0); MEAN CORPUSCULAR HGB CONC 32.3 g/dl (32.0-36.5); MEAN CORPUSCULAR VOLUME 91.6 fl (80.0-96.0); MONO # 0.4 10^3/uL (0.0-0.8); MONO % 5.5 % (0.0-5.0); NEUTROPHILS # 3.9 10^3/uL (1.8-7.7); NEUTROPHILS % 51.5 % (36.0-66.0); PLATELET COUNT, AUTOMATED 301 10^3/uL (150-450); RED BLOOD COUNT 4.05 10^6/uL (4.00-5.40); WHITE BLOOD COUNT 7.5 10^3/uL (4.0-10.0)
[2018-09-13 13:38] LABS: HEMOGLOBIN A1c 7.3 %
[2018-09-13 13:57] LABS: ALBUMIN 3.6 GM/DL (3.2-5.2); ALT/SGPT 18 U/L (12-78); BILIRUBIN,TOTAL 0.7 MG/DL (0.2-1.0); BLOOD UREA NITROGEN 15 MG/DL (7-18); CALCIUM LEVEL 8.9 MG/DL (8.8-10.2); CARBON DIOXIDE LEVEL 28 MEQ/L (21-32); CHLORIDE LEVEL 104 MEQ/L (98-107); CHOLESTEROL LEVEL 116 MG/DL (<200); CHOLESTEROL RISK RATIO 1.589 (<5); CREATININE FOR GFR 0.64 MG/DL (0.55-1.30); GLOMERULAR FILTRATION RATE > 60.0 (>45); GLUCOSE, FASTING 97 MG/DL (70-100); HDL CHOLESTEROL 73 MG/DL (>40); LDL CHOLESTEROL 30 MG/DL (<100); NON-HDL-C 43 MG/DL; POTASSIUM SERUM 4.1 MEQ/L (3.5-5.1); SODIUM LEVEL 140 MEQ/L (136-145); TOTAL PROTEIN 6.9 GM/DL (6.4-8.2); TRIGLYCERIDES LEVEL 64 MG/DL (<150)
== END ==
LOC: M LABDRAWP 11:40
PROVIDERS: ATTEND Family Medicine
DX: E03.9 Hypothyroidism, unspecified (principal); E11.9 Type 2 diabetes mellitus without complications

== ENCOUNTER → 2018-10-25 | Outpatient (CLI) | payer OTHER ==
--- NOTE | 2018-10-25 15:51 | REP ---
BILATERAL FEET: Four views of each foot performed. On the right, there is no acute fracture or dislocation. Moderate posterior calcaneal spurring is seen at the insertion of the Achilles tendon. Metallic plate and screws are seen fusing the first metatarsophalangeal joint. There is mild spurring at the base of the first metatarsal. Severe erosive changes are noted of the heads of the second through fifth metatarsals. There is a tiny erosion at the distal end of the fourth and fifth proximal phalanges, at the base of the second through fourth middle phalanges as well as at the distal articulating surface of those middle phalanges. Tiny articular surface erosion is seen at the base of the third distal phalanx. There is mild diffuse joint space narrowing of the second through fifth interphalangeal joints. On the left, there is no acute fracture or dislocation. There appear to be old healed fractures of the distal ends of fourth and fifth metatarsals. Rounded calcification at the dorsal aspect of the tarsal-metatarsal joints on the lateral view could represent an old fracture, diameter is approximately 5 mm. There is moderate posterior and inferior calcaneal spurring. There is moderate spurring at the medial aspect of the joint between the medial cuneiform and base of first metatarsal. No significant erosive changes are seen. IMPRESSION: No acute fracture or dislocation bilaterally. Arthritic changes bilaterally as discussed above. There is severe erosive changes of the heads of the second through fifth metatarsals with more mild erosive changes of the second through fifth phalanges. On the right there are old healed fractures of the distal ends of the fourth and fifth metatarsals. There is bilateral calcaneal spurring. Electronically Signed by Mariano Moses MD 10/27/2018 10:47 A
== END ==
LOC: M RAD 12:41
PROVIDERS: ATTEND Family Medicine
DX: M77.9 Enthesopathy, unspecified (principal)

== ENCOUNTER → 2018-10-25 | Outpatient (CLI) | payer OTHER ==
--- NOTE | 2018-10-25 13:40 | REPMRS ---
Patient History The patient states she has not had a clinical breast exam in over a year. Patient is postmenopausal. Family history of breast cancer at age 50 or over in sister, prostate cancer at age 50 or over in paternal uncle, prostate cancer at age 50 or over in paternal uncle. Benign excisional biopsy of the left breast, 1988. 3D TOMOSYNTHESIS WAS PERFORMED. [facility] lifetime risk for breast cancer is 9.3%. Digital Woman Screen Mammo: October 25, 2018 - Exam #: [id number] Bilateral CC and MLO view(s) were taken. Technologist: Larissa Hilliard, Technologist Prior study comparison: October 20, 2016, bilateral digital mammo screening bilat, performed at [facility]. May 30, 2013, digital mammo diagnostic bilateral, performed at [facility]. FINDINGS: The breast tissue is heterogeneously dense. This may lower the sensitivity of mammography. There has been no change in the appearance of the mammogram from the prior studies. There is a moderate amount of residual fibroglandular tissue which is fairly symmetric. There is no interval development of dominant mass, areas of architectural distortion, or clustered microcalcification typical of malignancy. Assessment: BI-RADS/ACR category 1 mammogram. Negative Mammogram. Recommendation Routine screening mammogram in 1 year (for women over age 40). This mammogram was interpreted with the aid of an FDA-approved computer-aided dectection system. Electronically Signed By: Mariano Moses MD 10/25/18 [id number]
== END ==
LOC: M WHC 09:54
PROVIDERS: ATTEND Family Medicine
DX: Z12.31 Encounter for screening mammogram for malignant neoplasm of breast (principal)

== ENCOUNTER → 2018-10-27 | Outpatient (CLI) | payer OTHER ==
[~2018-10-27] MED LIST changes: -ALBU17IN2 INH; +GAST100C PO; +GLIM2TAB29; +LIDO5DIS41 TD; -LORA1TAB12 PO; +LORA1TAB4 PO; -METH4TAB28 PO; +METH4TAB8 PO; +NESI25TA PO; +PERC5TAB12 PO; +PROV108A INH; -TRAZ-163 PO; +TRAZ-257 PO; +VITA500045
--- NOTE | 2018-10-27 14:35 | REP ---
Renal ultrasound: Clinical history states benign neoplasm of the right kidney. Comparisons are the abdomen and pelvis CT of 01/18/2017 without IV contrast and 01/02/2015 with IV contrast. The kidneys are normal size. Right kidney measures 12.1 x 4. By 4.7 cm and the left kidney measures 11.5 x 4.6 x 6.0 cm. Renal cortical echogenicity is normal bilaterally. There is no hydronephrosis or calculus on the right or the left. There are too small cysts in the lower pole of the right kidney, one posteriorly measuring up to 1.5 cm and the other in the lower pole measuring up to 1.9 cm. H of these have a small focal area of capsular thickening versus thickening versus small nodule. Upon review of the comparison CT studies. There is a hypodense lesion in the lower pole of the left kidney posterolaterally measuring 13 mm in diameter compatible with a small cyst. No associated nodule is identified by CT. Immediately superior to this lesion. There is a cortical scar. No other lesion is identified in the right kidney. In the left kidney. There is no nodule, mass or cyst on the comparison CT studies. With color Doppler assessment there are bilateral ureteral jets into the bladder. Impression: There are two indeterminate lesions in the lower pole of the right kidney and a indeterminate lesion in the upper pole of the left kidney as discussed above. I would recommend follow-up CT or MRI without and with IV contrast for further evaluation of these findings. Electronically Signed by Mariano Mcghee MD 10/27/2018 02:27 P
== END ==
LOC: M RAD 11:28
PROVIDERS: ATTEND Physician Assistant
DX: D30.01 Benign neoplasm of right kidney (principal); R93.421 Abnormal radiologic findings on diagnostic imaging of right kidney

== ENCOUNTER 2018-11-30 11:46 | Emergency (ER) | payer OTHER ==
[~2018-11-30] VITALS: Ht 167.6 cm; Wt 104.5 kg
[2018-11-30 11:46] VITALS: BP 126/62
[~2018-11-30 11:46] MED LIST changes: -GAST100C PO; -GLIM2TAB29; -LIDO5DIS41 TD; -NESI25TA PO; -PERC5TAB12 PO; -VITA500045
[2018-11-30] MEDS ORDERED: KLON0.5T PO (12:21)
[2018-11-30] MEDS ORDERED: NESI25TA PO (12:21)
[2018-11-30] MEDS ORDERED: CELE1CAP4 PO (12:21)
[2018-11-30] MEDS ORDERED: GAST100C PO (12:21)
[2018-11-30] MEDS ORDERED: GLIM2TAB29 (12:21)
[2018-11-30] MEDS ORDERED: VITA500045 (12:21)
--- NOTE | 2018-11-30 12:38 | REP ---
Left lower extremity deep vein duplex ultrasound: The deep veins demonstrate normal compression, normal Doppler color flow and normal Doppler waveforms with respiration and augmentation from the popliteal vein to the common femoral vein. Impression: There is no left lower extremity deep vein thrombus. Electronically Signed by Mariano Mcghee MD 11/30/2018 12:30 P
== END 2018-11-30 13:13 | disposition home or self-care (01) ==
LOC: M ED 11:46
DX: I80.02 Phlebitis and thrombophlebitis of superficial vessels of left lower extremity (principal); J44.9 Chronic obstructive pulmonary disease, unspecified; K58.9 Irritable bowel syndrome, unspecified; Z88.2 Allergy status to sulfonamides; Z88.8 Allergy status to other drugs, medicaments and biological substances; Z91.018 Allergy to other foods; Z79.82 Long term (current) use of aspirin; Z79.899 Other long term (current) drug therapy

== ENCOUNTER 2019-01-18 17:30 | Emergency (ER) | payer OTHER ==
[~2019-01-18] VITALS: Ht 167.6 cm; Wt 100.0 kg
[~2019-01-18 17:30] MED LIST changes: +GAST100C PO; +GLIM2TAB29; +LORA1TAB12 PO; -LORA1TAB4 PO; +METH4TAB28 PO; -METH4TAB8 PO; +NESI25TA PO; +TRAZ-163 PO; -TRAZ-257 PO; +VITA500045
[2019-01-18] MEDS ORDERED: PERC5TAB12 PO (19:12)
--- NOTE | 2019-01-18 19:14 | REP ---
Five views left ribs and single view chest: 01/18/2019. Indication: Left rib pain following fall. Comparison: 03/21/2018. Findings: There is no evidence of acute rib fracture. There is no lung contusion. The left lung is clear. There is no pleural effusion or pneumothorax. Impression: No acute rib fracture detected. Electronically Signed by Ludwig Rao DO 01/18/2019 07:06 P
--- NOTE | 2019-01-18 19:18 | REP ---
Three views left hip and pelvis: 01/18/2019. Indication: Left hip pain following fall. Comparison: 03/21/2018. Findings: There is no acute fracture, subluxation or dislocation. No acute soft tissue abnormalities are detected. Impression: No acute osseous left hip injury. Electronically Signed by Ludwig Rao DO 01/18/2019 07:10 P
[2019-01-18 19:25] VITALS: BP 101/59
== END 2019-01-18 20:02 | disposition home or self-care (01) ==
LOC: M ED 17:30 → EDBD 17:30 → M ED 20:02
DX: S70.02XA Contusion of left hip, initial encounter (principal); S20.212A Contusion of left front wall of thorax, initial encounter; W19.XXXA Unspecified fall, initial encounter; Y92.098 Other place in other non-institutional residence as the place of occurrence of the external cause; M79.7 Fibromyalgia; E11.9 Type 2 diabetes mellitus without complications; E03.9 Hypothyroidism, unspecified; M81.0 Age-related osteoporosis without current pathological fracture; F41.9 Anxiety disorder, unspecified; F32.9 Major depressive disorder, single episode, unspecified; Z88.2 Allergy status to sulfonamides; Z88.8 Allergy status to other drugs, medicaments and biological substances; Z88.1 Allergy status to other antibiotic agents; Z91.018 Allergy to other foods; Z79.899 Other long term (current) drug therapy; Z79.84 Long term (current) use of oral hypoglycemic drugs; Z79.82 Long term (current) use of aspirin; Z79.51 Long term (current) use of inhaled steroids

== ENCOUNTER 2019-02-02 20:47 | Emergency (ER) | payer OTHER ==
[~2019-02-02] VITALS: Ht 167.6 cm; Wt 100.0 kg
[~2019-02-02 20:47] MED LIST changes: +PERC5TAB12 PO
[2019-02-02] MEDS ORDERED: LIDOCAINE 5% OINT 30 GM TOP STA (22:01)
[2019-02-02] MEDS ORDERED: PERCOCET 5MG/325MG TAB PO ONE (22:15)
[2019-02-02 22:24] LABS: BASO # 0.1 10^3/uL (0.0-0.2); BASO % 0.6 % (0.0-1.0); EOS # 0.5 10^3/uL (0.0-0.5); EOS % 6.3 % (0.0-3.0); HEMATOCRIT 37.7 % (36.0-47.0); HEMOGLOBIN 11.9 g/dl (12.0-15.5); LYMPH # 3.2 10^3/uL (1.5-5.0); LYMPH % 37.7 % (24.0-44.0); MEAN CORPUSCULAR HGB CONC 31.6 g/dl (32.0-36.5); MEAN CORPUSCULAR VOLUME 91.7 fl (80.0-96.0); MONO # 0.4 10^3/uL (0.0-0.8); MONO % 5.3 % (0.0-5.0); NEUTROPHILS # 4.2 10^3/uL (1.5-8.5); NEUTROPHILS % 49.7 % (36.0-66.0); PLATELET COUNT, AUTOMATED 430 10^3/uL (150-450); RED BLOOD COUNT 4.11 10^6/uL (4.00-5.40); WHITE BLOOD COUNT 8.4 10^3/uL (4.0-10.0)
--- NOTE | 2019-02-02 23:15 | REPVR ---
PROCEDURE INFORMATION: Exam: US Duplex Right Lower Extremity Veins, Limited Exam date and time: 02/02/2019 10:46 PM Age: 63 years old Clinical history: Pain; Leg, upper; Right; Additional info: PT tender thigh, HX dvt, fall yesterday, cant wb TECHNIQUE: Imaging protocol: Real-time Duplex ultrasound of the Right Lower Extremity with 2-D caban scale, color Doppler flow and spectral waveform analysis with image documentation. Limited exam was focused on the right lower extremity veins. COMPARISON: US Duplex, Ext LOWER veins, bilat 04/13/2017 1:55 PM FINDINGS: Right deep veins: Unremarkable. The common femoral, femoral and popliteal veins are patent without thrombus. Normal Doppler waveforms. Normal compressibility and/or augmentation response. Right superficial veins: Unremarkable. Saphenofemoral junction is patent without thrombus. Soft tissues: Unremarkable. IMPRESSION: No sonographic evidence of deep vein thrombosis. Electronically signed by: Miguel Angel Sunshine On 02/02/2019 23:15:04 PM
--- NOTE | 2019-02-02 23:19 | REPVR ---
PROCEDURE INFORMATION: Exam: US Retroperitoneal Limited, Kidneys Exam date and time: 02/02/2019 10:46 PM Age: 63 years old Clinical history: Abdominal pain; Flank; Right; Additional info: PT tender thigh, HX dvt, fall yesterday, cant wb TECHNIQUE: Imaging protocol: Real-time ultrasound of the retroperitoneum with image documentation. Examination was focused on the kidneys. COMPARISON: US RETROPERITONEAL - OUTSIDE PRIOR 02/09/2017 1:13 PM FINDINGS: Right kidney: 11.6 cm in length. 1 x 0.7 x 0.9 cm lower pole cyst. No stones. No hydronephrosis. Left kidney: 10.5 cm in length. No stones. No hydronephrosis. Bladder: Obscured. IMPRESSION: No acute sonographic findings. Electronically signed by: Miguel Angel Sunshine On 02/02/2019 23:19:17 PM
[2019-02-03 00:20] VITALS: BP 118/68
[2019-02-03] MEDS ORDERED: LIDO5DIS41 TD (00:40)
--- NOTE | 2019-02-03 05:15 | REP ---
Clinical: Trauma. Nonweightbearing. Technique: Neutral and frog lateral views of the right hip. Findings: No acute fracture or dislocation. Skeletal structures, joint spaces, and surrounding soft tissues are normal. No subcutaneous emphysema or foreign body. Impression: Normal right hip radiographs. No acute fracture or dislocation. Electronically Signed by Jamar Nichols MD 02/03/2019 05:06 A
--- NOTE | 2019-02-03 05:18 | REP ---
Clinical: Trauma. Fall. Technique: Single AP view of the pelvis. Findings: Generalized age-related changes are appreciated. No acute fracture or dislocation. Surrounding soft tissues are unremarkable. Impression: No acute fracture or dislocation. Electronically Signed by Jamar Nichols MD 02/03/2019 05:10 A
== END 2019-02-03 00:58 | disposition home or self-care (01) ==
LOC: M ED 20:47
DX: M25.551 Pain in right hip (principal); M54.5 Low back pain; W19.XXXA Unspecified fall, initial encounter; Y92.099 Unspecified place in other non-institutional residence as the place of occurrence of the external cause; Y93.9 Activity, unspecified; Y99.9 Unspecified external cause status; E11.9 Type 2 diabetes mellitus without complications; M79.7 Fibromyalgia; J45.909 Unspecified asthma, uncomplicated; K58.9 Irritable bowel syndrome, unspecified; Z86.711 Personal history of pulmonary embolism; Z79.82 Long term (current) use of aspirin; Z79.84 Long term (current) use of oral hypoglycemic drugs; Z79.899 Other long term (current) drug therapy; Z88.2 Allergy status to sulfonamides; Z88.8 Allergy status to other drugs, medicaments and biological substances; Z91.018 Allergy to other foods

== ENCOUNTER → 2019-02-12 | Outpatient (CLI) | payer OTHER ==
[~2019-02-12] MED LIST changes: +LIDO5DIS41 TD; -METH4TAB28 PO; +METH4TAB8 PO
--- NOTE | 2019-02-12 13:23 | REPPI ---
Seven views cervical and three views lumbar spines: 02/12/2019. Indication: Cervical and lumbar pain. Comparison: 03/23/2018. 12/28/2016. Findings: There is no fracture, subluxation or dislocation. There is straightening of the cervical lordosis. There is no instability demonstrated on the flexion/extension views. Mild dextroscoliosis of the lumbar spine is present. The patient is status post cholecystectomy. Increased fecal material is noted throughout the colon. Multilevel degenerative sequelae are present most pronounced within the cervical spine at C5/C6 and within the lumbar spine at L5/S1. Impression: No acute osseous injuries of the cervical or lumbar spines. C5/C6, C6/C7 and L5/S1 spondylosis without severe spinal canal narrowing detected. Constipation? Electronically Signed by Ludwig Rao DO 02/12/2019 01:15 P
--- NOTE | 2019-02-12 14:36 | REPPI ---
RIGHT KNEE SERIES: Five views. HISTORY: Weakness FINDINGS: Five views of the right knee demonstrate moderate three-compartment osteoarthritis with patellofemoral and medial compartment narrowing and well established three-compartment osteophyte formation. There is some sclerosis about the medial compartment. No erosive change is seen. There is diffuse osteopenia. Bones, joints and soft tissues are otherwise unremarkable. IMPRESSION: Moderate three compartment osteoarthritis. No acute bony abnormality. Electronically Signed by Jameel Vinson MD 02/12/2019 05:59 P
== END ==
LOC: M PLAIMG 10:42
PROVIDERS: ATTEND Physician Assistant Medical
DX: M47.816 Spondylosis without myelopathy or radiculopathy, lumbar region (principal); R29.898 Other symptoms and signs involving the musculoskeletal system; M50.30 Other cervical disc degeneration, unspecified cervical region

== ENCOUNTER 2019-04-04 12:20 | Outpatient (CLI) | payer OTHER ==
[~2019-04-04] VITALS: Ht 177.8 cm; Wt 100.0 kg
[~2019-04-04 12:20] MED LIST changes: -LORA1TAB12 PO; +LORA1TAB4 PO; -TRAZ-163 PO; +TRAZ-257 PO
[2019-04-04 12:30] VITALS: BP 110/66
[2019-04-04] MEDS ORDERED: ZOLEDRONIC ACID 5 MG in IV 1 EA IV ONE (12:45)
[2019-04-04 14:10] VITALS: BP 112/58
== END 2019-04-04 14:10 | disposition home or self-care (01) ==
LOC: M INFU 12:20
PROVIDERS: ATTEND Family Medicine
DX: M81.0 Age-related osteoporosis without current pathological fracture (principal); Z88.2 Allergy status to sulfonamides; Z88.4 Allergy status to anesthetic agent; Z88.8 Allergy status to other drugs, medicaments and biological substances
CPT/HCPCS: 96365; J3489

== ENCOUNTER 2019-06-02 19:06 | Inpatient (IN) | payer OTHER ==
[~2019-06-02] VITALS: Ht 165.1 cm; Wt 103.0 kg
[~2019-06-02 19:06] MED LIST changes: -GLIM2TAB29; +GLIM2TAB29 PO
[2019-06-02] MEDS ORDERED: NS 500 ML IV ONE ×2 (20:00→22:45)
[2019-06-02 20:03] LABS: BASO # 0.1 10^3/uL (0.0-0.2); BASO % 0.3 % (0.0-1.0); EOS # 0.3 10^3/uL (0.0-0.5); EOS % 1.7 % (0.0-3.0); HEMATOCRIT 45.9 % (36.0-47.0); HEMOGLOBIN 14.5 g/dl (12.0-15.5); LYMPH # 2.7 10^3/uL (1.5-5.0); LYMPH % 16.5 % (24.0-44.0); MEAN CORPUSCULAR HEMOGLOBIN 28.8 pg (27.0-33.0); MEAN CORPUSCULAR HGB CONC 31.6 g/dl (32.0-36.5); MEAN CORPUSCULAR VOLUME 91.1 fl (80.0-96.0); MONO % 6.1 % (0.0-5.0); NEUTROPHILS # 12.2 10^3/uL (1.5-8.5); RED BLOOD COUNT 5.04 10^6/uL (4.00-5.40); WHITE BLOOD COUNT 16.3 10^3/uL (4.0-10.0)
[2019-06-02 20:29] LABS: AMORPHOUS SEDIMENT SMALL (NEGATIVE); APPEARANCE, URINE CLOUDY (CLEAR); BACTERIA, URINE AUTO 1+ (NEGATIVE); BILIRUBIN, URINE AUTO NEGATIVE (NEGATIVE); BLOOD, URINE BLOOD 2+ (NEGATIVE); COLOR, URINE YELLOW (YELLOW); GLUCOSE, URINE (UA) AUTO NEGATIVE (NEGATIVE); KETONE, URINE AUTO NEGATIVE (NEGATIVE); LEUKOCYTE ESTERASE, URINE AUTO 2+ (NEGATIVE); NITRITE, URINE AUTO POSITIVE (NEGATIVE); PROTEIN, URINE AUTO 3+ mg/dL (NEGATIVE); RBC, URINE AUTO TNTC /HPF (0-3); SPECIFIC GRAVITY URINE AUTO 1.012 (1.002-1.035); SQUAMOUS EPITHELIAL CELL UR AU 0 /HPF (0-6); UROBILINOGEN, URINE AUTO 0.2 mg/dL (0.0-2.0); WBC, URINE AUTO TNTC /HPF (0-3)
[2019-06-02] MEDS ORDERED: cefTRIAXone SOD 1 GM in D5W MINI-BAG PLUS 50 ML IV ONE (21:15)
[2019-06-02 22:55] LABS: ALBUMIN 1.6 GM/DL (3.2-5.2); ALT/SGPT 7 U/L (12-78); BILIRUBIN,DIRECT < 0.1 MG/DL (0.0-0.2); BILIRUBIN,TOTAL 0.4 MG/DL (0.2-1.0); BLOOD UREA NITROGEN 7 MG/DL (7-18); CARBON DIOXIDE LEVEL 15 MEQ/L (21-32); CHLORIDE LEVEL 128 MEQ/L (98-107); CPK CREATINE PHOSPHOKINASE 81 U/L (26-192); CREATININE FOR GFR 0.22 MG/DL (0.55-1.30); FREE THYROXINE INDEX 2.3 % (1.3-4.8); GLOMERULAR FILTRATION RATE > 60.0 (>45); GLUCOSE, FASTING 108 MG/DL (70-100); LIPASE 17 U/L (73-393); POTASSIUM SERUM 2.7 MEQ/L (3.5-5.1); SODIUM LEVEL 151 MEQ/L (136-145); T UPTAKE 38 % (30-39); THYROID STIMULATING HORMONE 0.712 uIU/ML (0.358-3.740); THYROXINE (T4) 6.1 UG/DL (4.5-12.0); TOTAL PROTEIN 4.1 GM/DL (6.4-8.2)
[2019-06-02 22:56] LABS: CALCIUM LEVEL < 5.0 MG/DL (8.8-10.2)
[2019-06-02] MEDS ORDERED: KCL 10MEQ/100ML SWI (KRUN) 10 MEQ in IV 1 EA IV ONE (23:00)
[2019-06-02] MEDS ORDERED: NS 1,000 ML IV ONE (23:00)
[2019-06-02] MEDS ORDERED: POTASSIUM CHLORIDE 10 MEQ SR TABLET PO ONE (23:00)
[2019-06-02] MEDS ORDERED: ISOVUE-370 76% 100ML VIAL (Q9967) As Ordered ONE (23:12)
[2019-06-02] MEDS ORDERED: CALCIUM CHLORIDE 10% 1 GM in D5W 100 ML IV ONE (23:15)
[2019-06-02] MEDS ORDERED: MORPHINE 2 MG/ML 1ML VIAL (J2270) IV ONE (23:45)
[2019-06-03] VITALS (7 sets, daily range): BP systolic 96–134; BP diastolic 57–80
--- NOTE | 2019-06-03 00:24 | REPVR ---
PROCEDURE INFORMATION: Exam: CT Abdomen And Pelvis With Contrast Exam date and time: 06/02/2019 12:09 AM Age: 63 years old Clinical indication: Abdominal pain; Generalized TECHNIQUE: Imaging protocol: Computed tomography of the abdomen and pelvis with intravenous contrast. Radiation optimization: All CT scans at this facility use at least one of these dose optimization techniques: automated exposure control; mA and/or kV adjustment per patient size (includes targeted exams where dose is matched to clinical indication); or iterative reconstruction. Contrast material: ISOVUE 370; Contrast volume: 100 ml; Contrast route: IV; COMPARISON: CT ABD PELVIS W/O FOL BY WIT 01/18/2017 8:33 AM FINDINGS: Limitations: Examination is limited by motion artifact. Liver: Normal. No mass. Gallbladder and bile ducts: Status post cholecystectomy. CBD measures 10 mm. Pancreas: Normal. No ductal dilation. Spleen: Normal. No splenomegaly. Adrenals: Normal. No mass. Kidneys and ureters: Hypodense lesion in the midpole of the right kidney measuring approximately 8 x 14 mm. No hydronephrosis bilaterally. Stomach and bowel: Moderate stool in the colon. No abnormal bowel dilatation. No abnormal bowel wall thickening. Appendix: The appendix is not seen. However, there is no evidence of appendicitis. Intraperitoneal space: Small fluid in the pelvis. No free air. Vasculature: Unremarkable. No abdominal aortic aneurysm. Lymph nodes: Unremarkable. No enlarged lymph nodes. Bladder: Diffuse thickening of the bladder. Bladder is decompressed. Pericystic haziness. There is a Paz catheter in the bladder. Reproductive: Status post hysterectomy. Bones/joints: Intramedullary nail in the right femur. Moderate degenerative spine. No acute fracture. Soft tissues: Unremarkable. IMPRESSION: 1. Limited evaluation. 2. Diffuse thickening of the bladder. Suspicious for acute cystitis. 3. Small free fluid in the pelvis. 4. Mildly dilated CBD for post cholecystectomy. Correlate with labs. 5. Hypodense lesion in the right kidney. No change from prior. No follow-up is necessary. 6. Additional findings as described. Electronically signed by: Ricarda Valera On 06/03/2019 00:23:55 AM
[2019-06-03] MEDS ORDERED: NS 1,000 ML IV ONE (00:45)
[2019-06-03] MEDS ORDERED: GLUCOSE 4 GM CHEW TABLET PO PRN (01:15)
[2019-06-03] MEDS ORDERED: GLUCAGON FOR INJ 1 MG VIAL (J1610) SC PRN (01:15)
[2019-06-03] MEDS ORDERED: DEXTROSE 50% 50 ML SYRINGE IV PRN (01:15)
[2019-06-03] MEDS ORDERED: D5W 1,000 ML IV SCH (01:15)
[2019-06-03] MEDS ORDERED: JANU100T PO (01:21)
[2019-06-03] MEDS ORDERED: BACL10TA8 PO (01:21)
[2019-06-03] MEDS ORDERED: VITA50005 PO (01:21)
[2019-06-03] MEDS ORDERED: TRAM50TA2 PO (01:21)
[2019-06-03] MEDS ORDERED: MAGN400T2 PO (01:21)
[2019-06-03] MEDS ORDERED: PEG1POW PO (01:29)
[2019-06-03] MEDS ORDERED: SENN1TAB96 PO (01:29)
[2019-06-03] MEDS ORDERED: PATIENT COMMENTS (01:31)
[2019-06-03] MEDS ORDERED: ALBUTEROL SULFATE 2.5 MG/0.5 ML INH NEB SOLN INH PRN (01:45)
[2019-06-03] MEDS ORDERED: ALBUTEROL 90 MCG/ACT 8GM HFA INHALER INH PRN (01:45)
[2019-06-03 01:48] LABS: MAGNESIUM LEVEL 0.8 MG/DL (1.8-2.4)
[2019-06-03] MEDS ORDERED: MAG SULF 1GM/100ML (MAG RUN) 1 GM in IV 1 EA IV ONE (02:00)
--- NOTE | 2019-06-03 02:37 | HPEPDOC ---
[facility] Medical History & Physical Date of Admission Jun 03, 2019 Date of Service: Jun 03, 2019 Primary Care Physician: Kimani Ann M.D. Attending Physician: STUART MONTGOMERY MD History and Physical CHIEF COMPLAINT: Altered Mental Status HISTORY OF PRESENT ILLNESS: Patient is a 63-year-old female who presented to [facility] emergency department with altered mental status. Patient was altered at the time of evaluation, and therefore the history was obtained from the patient's daughter as well as from the patient's medical record in [facility]. Patient was noted by daughter to have fallen fairly recently. Although it does not appear the patient had recent surgery was started on any recent medications. Patient was reportedly found down by her daughter who had called EMS to have the patient transferred to the emergency department. At the emergency department, the patient was vitally stable, although noted to be altered. She did indicate that she had some abdominal pain. She had a leukocytosis of 16.3. BMP revealed severe metabolic derangement with a sodium 151, potassium 2.7, chloride 128, calcium of 5.0, and magnesium 0.8. Urinalysis was obtained for suspected urinary tract infection. CT abdomen and pelvis obtained which revealed diffuse thickening of the bladder suspicious for acute cystitis, small free fluid in the pelvis, mild dilated common bile duct for postcholecystectomy and a hypodense lesion in the right kidney which is uncha nged from previous imaging. Patient received 3 normal saline boluses in the emergency department as well as 1 g of Rocephin. She received IV potassium and oral potassium and 1 g of calcium chloride. Hospitalist service was consulted for further evaluation and management. PAST MEDICAL HISTORY: Obtained from patient's medical record, as patient was altered 1. Asthma, severe, persistent. 2. Type 2 diabetes mellitus. 3. Nonalcoholic fatty liver disease 4. Depression, panic disorder 5. Morbid obesity 6. Gastroesophageal reflux disease 7. Diastolic dysfunction, grade 1, last echocardiogram July 2012. Left ventricular ejection fraction 60% 8. Chronic back pain/radiculopathy PAST SURGICAL HISTORY: 1. Laparoscopic cholecystectomy in 2006. 2. EGD\colonoscopy revealing mild chemical gastritis, tubular adenoma in 2007. 3. Lumbar laminectomy. 4. Total abdominal hysterectomy with bilateral salpingo-oophorectomy in October 2000. 5. Rectocele repair. 6. Left knee arthroscopically in . SOCIAL HISTORY: Unable to obtain as patient is altered FAMILY HISTORY: Unable to obtain as patient is altered ALLERGIES: Please see below. REVIEW OF SYSTEMS: Unable to obtain as patient is altered HOME MEDICATIONS: Please see below. PHYSICAL EXAMINATION: VITAL SIGNS: Temperature 96.6, pulse 101, respiratory rate 18, blood pressure 113/56, pulse oximetry, 96 % on room air. GENERAL APPEARANCE:. Patient is awake and alert, arousable. She is oriented to self, but not place or time. She appears confused\delirious. She is diabetic acute distress. HEENT: Atraumatic, normocephalic. Eyes are nonicteric. Trachea is midline. Mucous membranes are very dry. Lips are cracked. CARDIOVASCULAR: Normal S1, S2, slightly tachycardic rate with regular rhythm. No clicks, rubs or murmurs. LUNGS: Clear vesicular breath sounds bilaterally. No wheezes, rhonchi or rales. Symmetric chest expansion. No accessory muscle use ABDOMEN: Morbidly obese, soft, nondistended., No rebound tenderness or guarding. Normoactive bowel sounds. No hepatosplenomegaly appreciated EXTREMITIES: No edema. Full unable pulses bilateral upper and lower extremities no clubbing or cyanosis. NEUROLOGICAL:. Patient is altered. She does not answer questions appropriately. No signs of focal neurological deficits. LABORATORY DATA: See below. IMAGING: PROCEDURE INFORMATION: Exam: CT Abdomen And Pelvis With Contrast Exam date and time: 06/02/2019 12:09 AM Age: 63 years old Clinical indication: Abdominal pain; Generalized TECHNIQUE: Imaging protocol: Computed tomography of the abdomen and pelvis with intravenous contrast. Radiation optimization: All CT scans at this facility use at least one of these dose optimization techniques: automated exposure control; mA and/or kV adjustment per patient size (includes targeted exams where dose is matched to clinical indication); or iterative reconstruction. Contrast material: ISOVUE 370; Contrast volume: 100 ml; Contrast route: IV; COMPARISON: CT ABD PELVIS W/O FOL BY WIT 01/18/2017 8:33 AM FINDINGS: Limitations: Examination is limited by motion artifact. Liver: Normal. No mass. Gallbladder and bile ducts: Status post cholecystectomy. CBD measures 10 mm. Pancreas: Normal. No ductal dilation. Spleen: Normal. No splenomegaly. Adrenals: Normal. No mass. Kidneys and ureters: Hypodense lesion in the midpole of the right kidney measuring approximately 8 x 14 mm. No hydronephrosis bilaterally. Stomach and bowel: Moderate stool in the colon. No abnormal bowel dilatation. No abnormal bowel wall thickening. Appendix: The appendix is not seen. However, there is no evidence of appendicitis. Intraperitoneal space: Small fluid in the pelvis. No free air. Vasculature: Unremarkable. No abdominal aortic aneurysm. Lymph nodes: Unremarkable. No enlarged lymph nodes. Bladder: Diffuse thickening of the bladder. Bladder is decompressed. Pericystic haziness. There is a Paz catheter in the bladder. Reproductive: Status post hysterectomy. Bones/joints: Intramedullary nail in the right femur. Moderate degenerative spine. No acute fracture. Soft tissues: Unremarkable. IMPRESSION: 1. Limited evaluation. 2. Diffuse thickening of the bladder. Suspicious for acute cystitis. 3. Small free fluid in the pelvis. 4. Mildly dilated CBD for post cholecystectomy. Correlate with labs. 5. Hypodense lesion in the right kidney. No change from prior. No follow-up is necessary. 6. Additional findings as described. Electronically signed by: Niko Valera On 06/03/2019 00:23:55 AM DD: NIKO VALERA MD 06/02/19 0009 DT: TRACY 06/03/19 0023 DS: MODE 06/03/19 0023 MICROBIOLOGY: Please see below. ASSESSMENT: Patient is a 63-year-old female who was found down at home with altered mental status, transferred via EMS to the [facility] emergency department where she was found to have severe metabolic arrangements likely urinary tract infection. . PLAN: 1. Altered mental status likely secondary to sepsis secondary to urinary tract infection -Patient presented with altered mental status. She does have a leukocytosis. She is tachycardic. She is afebrile. Urine appears turbid. Patient received Rocephin in the ER -Will continue Rocephin 2 g every 24 hours -Urine culture pending -Will trend CBC -Aspiration precautions due to patient's altered mental status -Will hold patients home medications including cyclobenzaprine, gabapentin, lexapro, cymbalta, rozerem, and nortriptyline -Will continue Baclofen to prevent withdraw 2. Severe dehydration -Patient presented with hypernatremia and hyperchloremia secondary to severe dehydration. Patient received 3 L normal saline bolus for intravascular repletion. She has approximately a 4.4 L free water deficit -Will start patient on D5W at initial rate of 65 mils per hour not to correct more than 10 mEq in 24 hours -Will hold patient's home diuretics including her indapamide -q8h BMP 3. Metabolic Derangement -Patient has hypokalemia, hypocalcemia, and hypomagnesemia. Likely multifactorial to poor oral intake, dehydration, and medication use -Will replete prn. -q8h BMPs to monitor 4. Hypothyrodism -Will continue synthroid 5. Diabetes Mellitus Type 2 -Will hold home medications -Consistent carbohydrate diet -ACHS with sliding scale coverage 6. Asthma -Currently stable. Will continue home inhalers 7. DVT Prophylaxis -TEDs and Sequentials ATTENDING PHYSICIAN ATTESTATION: I performed a history and physical exam of the patient and discussed her management with the resident. I reviewed the resident's note and agree with the documented findings and plan of care as written above. Exceptions include the followinF with multiple comorbidities presents to the ER altered. Patient found to be septic with likely source being from UTI. She is also noted to be on multiple sedating medications and psychiatric medications as well. We will start IV antibiotics, hold sedating medications given her altered mental status. We'll continue some medications which may cause withdrawal including black baclofen. Patient is severely dehydrated with free water deficit of over 4 L. We'll aim to correct slowly with D5W and free water 1. Patient is able to tolerate by mouth intake. Rest of plan as per above Vital Signs Vital Signs Date Time Temp Pulse Resp B/P (MAP) Pulse Ox O2 Delivery O2 Flow Rate FiO2 06/03/19 00:09 96.6 93 18 102/76 93 Room Air Laboratory Data Labs 24H Laboratory Tests 2 06/02/19 19:25: Immature Granulocyte % (Auto) 0.4, Neutrophils (%) (Auto) 75.0H, Lymphocytes (%) (Auto) 16.5L, Monocytes (%) (Auto) 6.1H, Eosinophils (%) (Auto) 1.7, Basophils (%) (Auto) 0.3, Neutrophils # (Auto) 12.2H, Lymphocytes # (Auto) 2.7, Monocytes # (Auto) 1.0H, Eosinophils # (Auto) 0.3, Basophils # (Auto) 0.1, Nucleated Red Blood Cells % (auto) 0.0, Urine Color YELLOW, Urine Appearance CLOUDYH, Urine pH 8.0, Urine Specific [place] 1.012, Urine Protein 3+H, Urine Glucose (Auto)(UA) NEGATIVE, Urine Ketones (Auto) NEGATIVE, Urine Blood 2+H, Urine Nitrite POSITIVE, Urine Bilirubin NEGATIVE, Urine Urobilinogen 0.2, Urine Leukocyte Esterase (Auto) 2+H, Urine WBC (Auto) TNTCH, Urine RBC (Auto) TNTCH, Urine Hyaline Casts (Auto) 0, Urine Bacteria (Auto) 1+H, Urine Squamous Epithelial Cells 0, Urine Amorphous Sediment (Auto) SMALLH, Urine Sperm (Auto) , Ammonia 30 06/02/19 21:28: Lactic Acid Level 3.0*H 06/02/19 21:41: Anion Gap 8, Glomerular Filtration Rate > 60.0, Calcium Level < 5.0*L, Magnesium Level 0.8*L, Total Bilirubin 0.4, Direct Bilirubin < 0.1, Aspartate Amino Transf (AST/SGOT) 10, Alanine Aminotransferase (ALT/SGPT) 7L, Alkaline Phosphatase 59, Total Creatine Kinase 81, Total Protein 4.1L, Albumin 1.6L, Albumin/Globulin Ratio 0.64L, Lipase 17L, Thyroid Stimulating Hormone (TSH) 0.712, Free Thyroxine Index 2.3, Thyroxine (T4) 6.1, Triiodothyronine (T3) Uptake 38 CBC/BMP Laboratory Tests 06/02/19 19:25 06/02/19 21:41 Microbiology Microbiology 06/02/19 Urine Culture, Received Pending 06/02/19 Blood Culture, Received Pending Home Medications Scheduled Aspirin (Aspirin EC) 81 Mg Tab, 81 MG PO DAILY Baclofen (Baclofen) 10 Mg Tab, 10 MG PO QAM Baclofen (Baclofen) 10 Mg Tablet, 20 MG PO QHS Cyclobenzaprine HCl (Cyclobenzaprine HCl) 10 Mg Tab, 10 MG PO TID Docusate Sodium (Colace) 100 Mg Cap, 200 MG PO BID Duloxetine Hcl (Cymbalta) 60 Mg Cap, 60 MG PO BID Ergocalciferol (Vitamin D2) (Vitamin D2) 50,000 Units Cap, 50,000 UNITS PO Q2WK TAKES ON TUESDAY Escitalopram Oxalate (Lexapro) 10 Mg Tab, 10 MG PO DAILY Esomeprazole Magnesium (Nexium) 20 Mg Cap, 40 MG PO DAILY Folic Acid (Folic Acid) 1 Mg Tab, 1 MG PO DAILY Gabapentin (Gabapentin) 800 Mg Tab, 800 MG PO TID Glimepiride (Glimepiride) 2 Mg Tablet, 2 MG PO BID Indapamide (Indapamide) 2.5 Mg Tab, 2.5 MG PO DAILY Levothyroxine Sodium (Levothyroxine Sodium) 75 Mcg Tab, 75 MCG PO QAM Magnesium Oxide (Magnesium Oxide) 400 Mg Tablet, 400 MG PO BID Metformin HCl (Metformin HCl) 850 Mg Tab, 850 MG PO BID Nortriptyline HCl (Nortriptyline HCl) 25 Mg Cap, 25 MG PO QHS Polyethylene Glycol 3350 (Polyethylene Glycol 3350) 17 Gm Powd.pack, 17 GRAM PO DAILY for constipation Potassium Chloride (Potassium Chloride) 20 Meq Tab, 20 MEQ PO DAILY Rosuvastatin Calcium (Rosuvastatin Calcium) 40 Mg Tab, 40 MG PO DAILY TAKES AT NOON Sitagliptin Phosphate (Januvia) 100 Mg Tablet, 100 MG PO DAILY Scheduled PRN Albuterol Sulfate (Albuterol Sulfate) 2.5 Mg/0.5 Ml Neb, 2.5 MG INH DAILY PRN for SHORTNESS OF BREATH Albuterol Sulfate (Proventil Hfa) 108 Mcg/Act Aer, 2 PUFF INH Q4H PRN for SH ORTNESS OF BREATH Celecoxib (Celebrex) 200 Mg Capsule, 200 MG PO DAILY PRN for PAIN Diclofenac Sodium (Voltaren) 1 % Gel, 1 DOSE TOP QID PRN for PAIN APPLY TO BOTH KNEES Ramelteon (Rozerem) 8 Mg Tab, 8 MG PO QHS PRN for INSOMNIA Sennosides/Docusate Sodium (Senexon-S 50-8.6 mg Tablet) 1 Each Tablet, 2 TABS PO QHS PRN for CONSTIPATION Tramadol HCl (Tramadol HCl) 50 Mg Tablet, 50 MG PO Q6H PRN for PAIN Miscellaneous Medications [Patient Comments] PATIENT CRYING, UNABLE TO ASSIST WITH MEDICATION HISTORY. MEDICATIONS LISTED HAVE BEEN FILLED RECENTLY AT HER PHARMACY Allergies Coded Allergies: gatifloxacin (Verified Allergy, Unknown, 11/30/18) ITCHING, REDNESS rosuvastatin (Verified Allergy, Unknown, 11/30/18) MYALGIA simvastatin (Verified Allergy, Unknown, 11/30/18) MYALGIA Xanthines (Verified Adverse Reaction, Intermediate, severe headache, 02/02/19) Sulfa (Sulfonamide Antibiotics) (Verified Adverse Reaction, Unknown, 11/30/18) TRIGGERS ASTHMA lemon (Verified Adverse Reaction, Unknown, 11/30/18) TRIGGERS ASTHMA rofecoxib (Verified Adverse Reaction, Unknown, 11/30/18) BRUISING theophylline (Verified Adverse Reaction, Unknown, 11/30/18) HEADACHE A-FIB/CHADSVASC A-FIB History Current/History of A-Fib/PAF?: No ANANDA LR DO Jun 03, 2019 02:37 STUART MONTGOMERY MD Jun 03, 2019 03:31
[2019-06-03] MEDS: MAG SULF 1GM/100ML (MAG RUN) 1 GM in IV 1 EA IV SCH ×2 (03:00→04:00)
[2019-06-03] MEDS ORDERED: ACETAMINOPHEN TAB 650MG DOSE (2X325MG) PO PRN (04:00)
[2019-06-03] MEDS ORDERED: KETOROLAC 30 MG/ML VIAL (J1885) IV ONE (04:00)
[2019-06-03] MEDS: LEVOTHYROXINE 75MCG TABLET (0.075MG) PO SCH (05:30)
[2019-06-03] MEDS ORDERED: MORPHINE 2 MG/ML 1ML VIAL (J2270) IV ONE (05:45)
[2019-06-03 07:19] LABS: BLOOD UREA NITROGEN 8 MG/DL (7-18); CALCIUM LEVEL 8.8 MG/DL (8.8-10.2); CARBON DIOXIDE LEVEL 24 MEQ/L (21-32); CHLORIDE LEVEL 108 MEQ/L (98-107); CREATININE FOR GFR 0.55 MG/DL (0.55-1.30); GLOMERULAR FILTRATION RATE > 60.0 (>45); GLUCOSE, FASTING 152 MG/DL (70-100); MAGNESIUM LEVEL 2.3 MG/DL (1.8-2.4); PHOSPHORUS LEVEL 3.3 MG/DL (2.5-4.9); SODIUM LEVEL 140 MEQ/L (136-145)
[2019-06-03] MEDS: HumaLOG INSULIN (NovoLOG) PER UNIT SC SCH ×4 (07:30→20:32)
--- NOTE | 2019-06-03 08:01 | REP ---
Clinical: Chest and abdominal pain. Admission. Comparison: 01/18/2019 . Findings: The mediastinum and cardiac silhouette are stable and within normal limits for portable technique. The lung bartholomew are clear without acute consolidation, effusion, or pneumothorax. Skeletal structures are intact. Impression: No acute cardiopulmonary process appreciated. Electronically Signed by Jamar Nichols MD 06/03/2019 07:53 A
[2019-06-03] MEDS: MAGNESIUM OXIDE 400 MG TAB (MAG-OX) PO SCH ×2 (09:18→22:13)
[2019-06-03] MEDS: ASPIRIN 81 MG ENTERIC TAB PO SCH (09:18)
[2019-06-03] MEDS: DOCUSATE SODIUM 100 MG CAP PO SCH ×2 (09:18→22:12)
[2019-06-03] MEDS: BACLOFEN 10 MG TAB PO SCH ×2 (09:18→22:13)
[2019-06-03] MEDS: FOLIC ACID 1 MG TAB PO SCH (09:18)
[2019-06-03] MEDS: PANTOPRAZOLE 40MG TAB (PROTONIX) PO SCH (09:21)
[2019-06-03] MEDS ORDERED: HALOPERIDOL 5 MG/ML VIAL (J1630) IV PRN (11:30)
[2019-06-03] MEDS ORDERED: MORPHINE 2 MG/ML 1ML VIAL (J2270) IV PRN (12:15)
[2019-06-03] MEDS ORDERED: traMADol 50 MG TAB PO PRN (12:15)
[2019-06-03] MEDS ORDERED: LORazepam 2 MG TAB PO ONE (12:30)
[2019-06-03 12:48] LABS: BASO # 0.1 10^3/uL (0.0-0.2); BASO % 0.5 % (0.0-1.0); EOS # 0.2 10^3/uL (0.0-0.5); EOS % 2.1 % (0.0-3.0); HEMATOCRIT 37.7 % (36.0-47.0); LYMPH # 2.9 10^3/uL (1.5-5.0); LYMPH % 29.1 % (24.0-44.0); MEAN CORPUSCULAR HEMOGLOBIN 28.7 pg (27.0-33.0); MEAN CORPUSCULAR HGB CONC 32.1 g/dl (32.0-36.5); MEAN CORPUSCULAR VOLUME 89.5 fl (80.0-96.0); MONO # 0.6 10^3/uL (0.0-0.8); MONO % 6.4 % (0.0-5.0); NEUTROPHILS % 61.4 % (36.0-66.0); PLATELET COUNT, AUTOMATED 318 10^3/uL (150-450); RED BLOOD COUNT 4.21 10^6/uL (4.00-5.40); WHITE BLOOD COUNT 9.8 10^3/uL (4.0-10.0)
[2019-06-03 12:52] LABS: HEMOGLOBIN 12.1 g/dl (12.0-15.5)
[2019-06-03 13:10] LABS: BLOOD UREA NITROGEN 12 MG/DL (7-18); CALCIUM LEVEL 9.2 MG/DL (8.8-10.2); CARBON DIOXIDE LEVEL 26 MEQ/L (21-32); CHLORIDE LEVEL 105 MEQ/L (98-107); CREATININE FOR GFR 0.81 MG/DL (0.55-1.30); GLOMERULAR FILTRATION RATE > 60.0 (>45); GLUCOSE, FASTING 140 MG/DL (70-100); POTASSIUM SERUM 3.5 MEQ/L (3.5-5.1); SODIUM LEVEL 137 MEQ/L (136-145)
[2019-06-03] MEDS ORDERED: RAMELTEON 8 MG TAB (ROZEREM) PO PRN (13:15)
[2019-06-03] MEDS ORDERED: CelecoXIB (CeleBREX) 100 MG CAP PO PRN (13:15)
--- NOTE | 2019-06-03 13:31 | IPNPDOC ---
Text Note Date of Service The patient was seen on 06/03/19. NOTE Subjective: Patient complains of generalized pain, she cannot specify the nikolas ellen source of pain. She stated the pain is 10 out of 10. Objective: VITAL SIGNS: Please see below. GENERAL APPEARANCE: In severe distress HEENT: Normocephalic, atraumatic. Mucous members moist and pink CARDIOVASCULAR: Regular rate and rhythm. No murmurs, rubs or gallops. Radial pulses are intact. There is no lower extremity edema LUNGS: Diminished lung sounds ABDOMEN: Abdomen is soft and moderately tender in suprapubic area MUSCULOSKELETAL: Range of motion is intact in all 4 extremities NEUROLOGICAL: Cranial nerves II-12 are grossly intact. Speech is not dysarthric Assessment and plan Patient 63 years old female with past history of depression, anxiety, hypothyroidism presented hospital with altered mental status and electrolyte imbalance. Patient was found to have acute cystitis and profound electrolytes abnormalities Sepsis Secondary to UTI On admission patient had leukocytosis with tachycardia UA positive for pyuria Continue treatment with ceftriaxone IV Altered mental status Most likely secondary to electrolyte imbalance, polypharmacy, urine tract infection superimposed with agitation with psychotic features. Patient continues yelling and moaning, complaining of generalized body ache w/o any primary source Continue ceftriaxone Haldol when necessary Dehydration/ hypernatremia Unknown etiology for profound electrolytes abnormalities. There is concern for hyperaldosteronism We will check blood for aldosterone/renin ratio, aldosterone level I stopped D5 in order to prevent hypercorrection of sodium We'll check BMP every 4 hours, sodium level every 2 hours Electrolyte imbalance There is concern for hyperaldosteronism superimposed with dehydration See above Type 2 diabetes Insulin sliding scale Diabetes diet UTI UA positive for pyuria Continue antibiotic therapy VS,Fishbone, I+O VS, Fishbone, I+O Laboratory Tests 06/02/19 19:25 06/02/19 21:41 06/03/19 04:46 Vital Signs Date Time Temp Pulse Resp B/P (MAP) Pulse Ox O2 Delivery O2 Flow Rate FiO2 06/03/19 09:22 20 Room Air 06/03/19 08:39 79 113/57 (75) 06/03/19 08:00 96.5 96 I&O- Last 24 Hours up to 6 AM 06/03/19 06:00 Intake Total 3260 ml Output Total 1850 ml Balance 1410 ml RENETTA THORPE DO Jun 03, 2019 13:31
[2019-06-03] MEDS: CYCLOBENZAPRINE 10 MG TAB PO SCH ×2 (16:07→22:12)
[2019-06-03] MEDS: GABAPENTIN 400 MG CAP PO SCH ×2 (16:07→22:13)
[2019-06-03 17:32] LABS: BLOOD UREA NITROGEN 14 MG/DL (7-18); CALCIUM LEVEL 8.6 MG/DL (8.8-10.2); CARBON DIOXIDE LEVEL 24 MEQ/L (21-32); CHLORIDE LEVEL 109 MEQ/L (98-107); CREATININE FOR GFR 0.67 MG/DL (0.55-1.30); GLOMERULAR FILTRATION RATE > 60.0 (>45); GLUCOSE, FASTING 127 MG/DL (70-100); SODIUM LEVEL 143 MEQ/L (136-145)
[2019-06-03 17:34] LABS: POTASSIUM SERUM 3.9 MEQ/L (3.5-5.1)
[2019-06-03] MEDS ORDERED: cefTRIAXone SOD 2 GM in D5W MINI-BAG PLUS 50 ML IV SCH (22:00)
[2019-06-03 22:02] LABS: BLOOD UREA NITROGEN 12 MG/DL (7-18); CALCIUM LEVEL 8.5 MG/DL (8.8-10.2); CARBON DIOXIDE LEVEL 26 MEQ/L (21-32); CHLORIDE LEVEL 106 MEQ/L (98-107); CREATININE FOR GFR 0.58 MG/DL (0.55-1.30); GLOMERULAR FILTRATION RATE > 60.0 (>45); GLUCOSE, FASTING 123 MG/DL (70-100); POTASSIUM SERUM 3.8 MEQ/L (3.5-5.1); SODIUM LEVEL 139 MEQ/L (136-145)
[2019-06-03] MEDS: NORTRIPTYLINE 25 MG CAP PO SCH (22:12)
[2019-06-03] MEDS: DULoxetine 30 MG CAP (CYMBALTA) PO SCH (22:12)
[2019-06-04] MEDS: LEVOTHYROXINE 75MCG TABLET (0.075MG) PO SCH (05:41)
[2019-06-04 06:00] VITALS: BP 118/66
[2019-06-04 08:13] LABS: PTH INTACT 64.7 PG/ML (18.5-88.0)
[2019-06-04 08:31] LABS: HEMATOCRIT 33.3 % (36.0-47.0); HEMOGLOBIN 10.8 g/dl (12.0-15.5); MEAN CORPUSCULAR HEMOGLOBIN 29.4 pg (27.0-33.0); MEAN CORPUSCULAR HGB CONC 32.4 g/dl (32.0-36.5); MEAN CORPUSCULAR VOLUME 90.7 fl (80.0-96.0); PLATELET COUNT, AUTOMATED 285 10^3/uL (150-450); RED BLOOD COUNT 3.67 10^6/uL (4.00-5.40); WHITE BLOOD COUNT 6.8 10^3/uL (4.0-10.0)
[2019-06-04] MEDS: DOCUSATE SODIUM 100 MG CAP PO SCH ×2 (09:00→21:02)
[2019-06-04] MEDS: HumaLOG INSULIN (NovoLOG) PER UNIT SC SCH ×4 (09:11→20:55)
[2019-06-04] MEDS: BACLOFEN 10 MG TAB PO SCH ×2 (09:11→21:03)
[2019-06-04] MEDS: ASPIRIN 81 MG ENTERIC TAB PO SCH (09:11)
[2019-06-04] MEDS: PANTOPRAZOLE 40MG TAB (PROTONIX) PO SCH (09:12)
[2019-06-04] MEDS: CYCLOBENZAPRINE 10 MG TAB PO SCH ×3 (09:12→21:02)
[2019-06-04] MEDS: GABAPENTIN 400 MG CAP PO SCH ×3 (09:12→21:03)
[2019-06-04] MEDS: FOLIC ACID 1 MG TAB PO SCH (09:12)
[2019-06-04] MEDS: MAGNESIUM OXIDE 400 MG TAB (MAG-OX) PO SCH ×2 (09:12→21:03)
[2019-06-04] MEDS: DULoxetine 30 MG CAP (CYMBALTA) PO SCH ×2 (09:12→21:03)
[2019-06-04] MEDS: ESCITALOPRAM OXALATE 10 MG TAB (LEXAPRO) PO SCH (09:12)
[2019-06-04 11:27] LABS: CK-MB VALUE MASS 2.6 NG/ML (<3.6); MB/CK RELATIVE INDEX 2.65 (< OR =4)
[2019-06-04 14:00] VITALS: BP 100/64
--- NOTE | 2019-06-04 14:41 | IPNPDOC ---
Date Seen The patient was seen on 06/04/19. Progress Note SUBJECTIVE: Patient seen and examined at the bedside this morning. She has no complaints. She reports that she had been hallucinating about relatives in the near past but is no longer having hallucinations. She does report some generalized abdominal pain but denies any nausea/vomiting or diarrhea. No acute changes overnight. OBJECTIVE PHYSICAL EXAMINATION: GENERAL APPEARANCE: Laying in bed, appears stated age, no acute distress, calm, cooperative HEENT: EOMI, PERRLA, neck is supple with no thyromegaly or lymphadenopathy RESPIRATORY: Lungs are clear to auscultation bilaterally with no adventitious breath sounds appreciated CARDIOVASCULAR: no JVD, RRR,no murmurs/rubs/gallops ABDOMEN: obese, Soft, nontender to palpation in all four quadrants, no masses/organomegaly EXTREMITIES: no clubbing, cyanosis or edema noted NEUROLOGICAL: No obvious focal deficits PSYCHIATRIC: normal mood/affect Skin: No rashes or ulcers. LN: No significant cervical or inguinal lymphadenopathy LABORATORY DATA, IMAGING STUDIES, MICROBIOLOGY: Please see below. Echocardiogram: none ordered DVT prophylaxis ordered?: none ASSESSMENT AND PLAN: This is a 63 YO F with history of depression, anxiety, hyp othyroidism who presented with altered mental status found to have metabolic encephalopathy and acute cystitis. PROBLEMS: 1. Sepsis 2/2 UTI: -Vitals stable at current time -Urine culture grew Proteus Mirabalis -IV Rocephin changed to PO Augmentin -Patient still complains of suprapubic pain, resolving. -CT demonstrates diffuse thickening of the bladder concerning for acute cystitis. Patient may need outpatient follow-up 2. Metabolic encephalopathy: -Patient was found to have hypernatremia at 151 and hypokalemia at 2.7. Na resolved to 139 and K improved 3.8 -Renin and aldosterone pending 3. T2DM: -SSI with hypoglycemic protocol 4. Mood disorder: -continue Lexapro 5.Chronic pain: -Baclofen, Duloxetine DISPOSITION: . VS, I&O, 24H, Fishbone Vital Signs/I&O Vital Signs Date Time Temp Pulse Resp B/P (MAP) Pulse Ox O2 Delivery O2 Flow Rate FiO2 06/04/19 06:00 97.0 60 18 118/66 (83) 98 06/03/19 14:00 Room Air I&O- Last 24 Hours up to 6 AM 06/04/19 05:59 Intake Total 100 ml Output Total 550 ml Balance -450 ml Laboratory Data 24H LABS Laboratory Tests 2 06/03/19 16:16: Anion Gap 10, Glomerular Filtration Rate > 60.0, Calcium Level 8.6L 06/03/19 16:54: Bedside Glucose (Misc Panel) 117H 06/03/19 20:29: Bedside Glucose (Misc Panel) 129H 06/03/19 21:21: Anion Gap 7L, Glomerular Filtration Rate > 60.0, Calcium Level 8.5L 06/04/19 07:27: Bedside Glucose (Misc Panel) 160H 06/04/19 08:14: Nucleated Red Blood Cells % (auto) 0.0 06/04/19 10:44: Total Creatine Kinase 98, Creatine Kinase MB 2.6, Creatine Kinase MB Relative Index 2.65 06/04/19 11:29: Bedside Glucose (Misc Panel) 152H CBC/BMP Laboratory Tests 06/03/19 15:26 06/03/19 16:16 06/03/19 17:46 06/03/19 19:32 06/03/19 21:21 06/04/19 08:14 Microbiology Microbiology 06/02/19 Urine Culture - Final, Complete Proteus Mirabilis 06/02/19 Blood Culture - Preliminary, Resulted No growth after 24 hours . All specim... GME ATTESTATION GME ATTESTATION My faculty preceptor for this patient encounter was physically present during the encounter and was fully available. All aspects of the patient interview, examination, medical decision making process, and medical care plan development were reviewed and approved by the faculty preceptor. The faculty preceptor is aware and concurs with the plan as stated in the body of this note and will attest to such by his/her cosignature. MICHAEL MATHEW MD Jun 04, 2019 14:41
[2019-06-04] MEDS: AUGMENTIN 500 MG TAB PO SCH ×2 (15:19→21:02)
[2019-06-04 15:35] LABS: BLOOD UREA NITROGEN 15 MG/DL (7-18); CALCIUM LEVEL 8.7 MG/DL (8.8-10.2); CARBON DIOXIDE LEVEL 27 MEQ/L (21-32); CHLORIDE LEVEL 106 MEQ/L (98-107); CREATININE FOR GFR 0.68 MG/DL (0.55-1.30); GLOMERULAR FILTRATION RATE > 60.0 (>45); GLUCOSE, FASTING 166 MG/DL (70-100); POTASSIUM SERUM 3.9 MEQ/L (3.5-5.1); SODIUM LEVEL 139 MEQ/L (136-145)
--- NOTE | 2019-06-04 19:31 | REPVR ---
PROCEDURE INFORMATION: Exam: US Retroperitoneal Limited, Kidneys Exam date and time: 06/04/2019 7:07 PM Age: 63 years old Clinical indication: Abdominal pain; Flank; Right; Additional info: Pyuria, pain in kidney TECHNIQUE: Imaging protocol: Real-time ultrasound of the retroperitoneum with image documentation. Examination was focused on the kidneys. COMPARISON: 1. RENAL US 02/02/2019 10:[address] ABD/PEL W/IV CONTRAST ONLY 06/02/2019 11:52:[address] ABD PELVIS W/O FOL BY WIT 01/18/2017 8:33:[address] ABD PELVIS WITH CONTRAST 01/02/2015 9:13:[address] ABD PELVIS W/O CONTRAST 10/20/2013 11:18:35 PM FINDINGS: Right kidney: The right kidney measures 11.3 cm in length. There is a 10 mm x 8 mm x 11 mm benign-appearing cyst in the lateral aspect of the lower pole of the right kidney, which is stable compared to the prior CTs on 06/02/2019, 01/18/2017, and 01/02/2015 and for which follow-up is not necessary. No solid renal mass is noted. There is no right renal cortical thinning. The right renal cortical echogenicity is within normal limits. No right hydronephrosis is noted. There is no right perinephric fluid collection. No obvious stones are seen in the right renal collecting system. Left kidney: The left kidney measures 9.8 cm in length. There is a 3 cm x 2.6 cm x 2.9 cm complex heterogeneous lesion in the superior pole of the left kidney, which is stable compared to the prior CTs on on 06/02/2019, 01/18/2017, and 01/02/2015. This lesion is not visualized in the CT abdomen and pelvis without contrast on 10/20/2013. There is no left renal cortical thinning. No left hydronephrosis is noted. There is no left perinephric fluid collection. No obvious stones are seen in the left renal collecting system. Bladder: There is thickening of the wall of the partially distended urinary bladder. The prevoid urinary bladder volume was 126.6 mL. IMPRESSION: 1. Thickening of the wall of the urinary bladder, which may be secondary to its partially distended state, bladder wall hypertrophy, or cystitis. 2. No hydronephrosis, perinephric fluid collection, or renal abscess. 3. 3 cm x 2.6 cm x 2.9 cm complex heterogeneous lesion in the superior pole of the left kidney, which is stable compared to the prior CTs on on 06/02/2019, 01/18/2017, and 01/02/2015. A follow-up renal ultrasound is suggested in 12 months (June 2020) or as clinically indicated. Electronically signed by: Patrice Alvares On 06/04/2019 19:31:20 PM
[2019-06-04] MEDS: NORTRIPTYLINE 25 MG CAP PO SCH (21:03)
[2019-06-04 22:00] VITALS: BP 122/69
[2019-06-05 06:00] VITALS: BP 119/71
[2019-06-05 06:01] LABS: HEMATOCRIT 33.2 % (36.0-47.0); HEMOGLOBIN 10.7 g/dl (12.0-15.5); MEAN CORPUSCULAR HEMOGLOBIN 29.2 pg (27.0-33.0); MEAN CORPUSCULAR HGB CONC 32.2 g/dl (32.0-36.5); MEAN CORPUSCULAR VOLUME 90.5 fl (80.0-96.0); PLATELET COUNT, AUTOMATED 307 10^3/uL (150-450); RED BLOOD COUNT 3.67 10^6/uL (4.00-5.40); WHITE BLOOD COUNT 6.5 10^3/uL (4.0-10.0)
[2019-06-05] MEDS: LEVOTHYROXINE 75MCG TABLET (0.075MG) PO SCH (06:26)
--- NOTE | 2019-06-05 07:03 | ECGEPIP ---
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
[2019-06-05] MEDS: PANTOPRAZOLE 40MG TAB (PROTONIX) PO SCH (08:11)
[2019-06-05] MEDS: ESCITALOPRAM OXALATE 10 MG TAB (LEXAPRO) PO SCH (08:11)
[2019-06-05] MEDS: FOLIC ACID 1 MG TAB PO SCH (08:11)
[2019-06-05] MEDS: CYCLOBENZAPRINE 10 MG TAB PO SCH (08:11)
[2019-06-05] MEDS: DOCUSATE SODIUM 100 MG CAP PO SCH (08:11)
[2019-06-05] MEDS: GABAPENTIN 400 MG CAP PO SCH (08:11)
[2019-06-05] MEDS: ASPIRIN 81 MG ENTERIC TAB PO SCH (08:11)
[2019-06-05] MEDS: BACLOFEN 10 MG TAB PO SCH (08:11)
[2019-06-05] MEDS: DULoxetine 30 MG CAP (CYMBALTA) PO SCH (08:12)
[2019-06-05] MEDS: MAGNESIUM OXIDE 400 MG TAB (MAG-OX) PO SCH (08:12)
[2019-06-05] MEDS: AUGMENTIN 500 MG TAB PO SCH (08:12)
[2019-06-05] MEDS: HumaLOG INSULIN (NovoLOG) PER UNIT SC SCH (08:12)
[2019-06-05] MEDS ORDERED: AMOX500T2 PO (10:03)
--- NOTE | 2019-06-05 18:12 | DS.PDOC ---
Discharge Summary General Date of Admission Jun 03, 2019 at 01:31 Date of Discharge 06/05/19 Discharge Summary 06/05/19 Vital Signs/I&Os DISCHARGE DIAGNOSES: Acute metabolic encephalopathy due to Cystitis and hypernatremia Proteus UTI Dehydration/Hypernatremia Hypokalemia r/o hyperaldosteronism Hypocalcemia Hypomagnesemia Asthma, severe, persistent. Type 2 diabetes mellitus. Nonalcoholic fatty liver disease Depression, panic disorder Morbid obesity BMI 37.8 Gastroesophageal reflux disease Diastolic dysfunction, grade 1, last echocardiogram July 2012. Left ventricular ejection fraction 60% Chronic back pain/radiculopathy DISCHARGE MEDICATIONS: Pls see below DISCHARGE INSTRUCTIONS: PCP to refer to job specification writer to rule out hyperaldosteronism. Pcp fu in 5 days. HOSPITAL COURSE: 63-year-old female presented to [facility] ER after being found down at home by her daughter, with recent history of recurrent falls. She c/o abd pain, foundto have severe hypernatremia Na 151, low k, mg, and calcium all of which were supplemented. CT abd: cystitis. Acute Cystitis white count 16.3. CT abdomen and pelvis obtained which revealed diffuse thickening of the bladder suspicious for acute cystitis, small free fluid in the pelvis, mild dilated common bile duct for postcholecystectomy and a hypodense lesion in the right kidney which is unchanged from previous imaging. Patient received 3 normal saline boluses in the emergency department as well as 1 g of Rocephin. transitioned to augmentin to complete as outpt. Hypernatremia/Dehydration Sodium 151, gently hydrated to prevent >10 meq na manager of change 24hrs. pt improved and mentation returned to baseline r/o hyperaldosteronism, still with pending renin, aldosterone levels Hypokalemia, Hypocalcemia, Hypomagnesemia potassium 2.7, chloride 128, calcium of 5.0, and magnesium 0.8. She received IV potassium and oral potassium and 1 g of calcium chloride. r/o hyperaldosteronism, still with pending renin, aldosterone levels PCP to refer to job specification writer as outpt if recurrent problems. back to normal values on hospital discharge DISCHARGE PHYSICAL EXAMINATION: VITALS: PLS SEE BELOW GENERAL APPEARANCE: aaOX 3. anicteric no jaundice no pallor HEENT: EOMI, PERRLA, neck is supple with no JVD, thyromegaly or lymphadenopathy. moist mucus membranes RESPIRATORY: Lungs are clear to auscultation bilaterally AEBE no wheezing or rales CARDIOVASCULAR:S1S2 no JVD, RRR,no murmurs/rubs/gallops ABDOMEN: obese, Soft, nontender to palpation in all four quadrants, no masses/organomegaly EXTREMITIES: no clubbing, cyanosis or edema noted DISCHARGE LABS, MICROBIOLOGY, IMAGING STUDIES: PLS SEE BELOW Exam: CT Abdomen And Pelvis With Contrast Exam date and time: 06/02/2019 12:09 AM Age: 63 years old Clinical indication: Abdominal pain; Generalized TECHNIQUE: Imaging protocol: Computed tomography of the abdomen and pelvis with intravenous contrast. Radiation optimization: All CT scans at this facility use at least one of these dose optimization techniques: automated exposure control; mA and/or kV adjustment per patient size (includes targeted exams where dose is matched to clinical indication); or iterative reconstruction. Contrast material: ISOVUE 370; Contrast volume: 100 ml; Contrast route: IV; COMPARISON: CT ABD PELVIS W/O FOL BY WIT 01/18/2017 8:33 AM FINDINGS: Limitations: Examination is limited by motion artifact. Liver: Normal. No mass. Gallbladder and bile ducts: Status post cholecystectomy. CBD measures 10 mm. Pancreas: Normal. No ductal dilation. Spleen: Normal. No splenomegaly. Adrenals: Normal. No mass. Kidneys and ureters: Hypodense lesion in the midpole of the right kidney measuring approximately 8 x 14 mm. No hydronephrosis bilaterally. Stomach and bowel: Moderate stool in the colon. No abnormal bowel dilatation. No abnormal bowel wall thickening. Appendix: The appendix is not seen. However, there is no evidence of appendicitis. Intraperitoneal space: Small fluid in the pelvis. No free air. Vasculature: Unremarkable. No abdominal aortic aneurysm. Lymph nodes: Unremarkable. No enlarged lymph nodes. Bladder: Diffuse thickening of the bladder. Bladder is decompressed. Pericystic haziness. There is a Paz catheter in the bladder. Reproductive: Status post hysterectomy. Bones/joints: Intramedullary nail in the right femur. Moderate degenerative spine. No acute fracture. Soft tissues: Unremarkable. IMPRESSION: 1. Limited evaluation. 2. Diffuse thickening of the bladder. Suspicious for acute cystitis. 3. Small free fluid in the pelvis. 4. Mildly dilated CBD for post cholecystectomy. Correlate with labs. 5. Hypodense lesion in the right kidney. No change from prior. No follow-up is necessary. 6. Additional findings as described. Electronically signed by: Niko Lou On 06/03/2019 00:23:55 AM DD: NIKO LOU MD 06/02/19 0009 DT: TRACY 06/03/19 0023 DS: MODE 06/03/19 0023 TIME SPENT ON DISCHARGE:30 MIN. Laboratory Data Labs 24H Laboratory Tests 2 06/04/19 20:37: Bedside Glucose (Misc Panel) 142H 06/05/19 05:36: Nucleated Red Blood Cells % (auto) 0.0 06/05/19 07:47: Bedside Glucose (Misc Panel) 123H 06/05/19 11:34: Bedside Glucose (Misc Panel) 128H CBC/BMP Laboratory Tests 06/05/19 05:36 FSBS Laboratory Tests Test 06/04/19 20:37 06/05/19 07:47 06/05/19 11:34 Range/Units Bedside Glucose (Misc Panel) 142 123 128 80-115 MG/DL Microbiology Microbiology 06/02/19 Urine Culture - Final, Complete Proteus Mirabilis 06/02/19 Blood Culture - Preliminary, Resulted No Growth after 48 hours. All Specime... Discharge Medications Scheduled Amoxicillin/Potassium Clav (Amox-Clav 500-125 mg Tablet) 1 Each Tablet, 500 MG PO Q12H Aspirin (Aspirin EC) 81 Mg Tab, 81 MG PO DAILY, (Reported) Baclofen (Baclofen) 10 Mg Tab, 10 MG PO QAM, (Reported) Baclofen (Baclofen) 10 Mg Tablet, 20 MG PO QHS, (Reported) Cyclobenzaprine HCl (Cyclobenzaprine HCl) 10 Mg Tab, 10 MG PO TID, (Reported) Docusate Sodium (Colace) 100 Mg Cap, 200 MG PO BID, (Reported) Duloxetine Hcl (Cymbalta) 60 Mg Cap, 60 MG PO BID, (Reported) Ergocalciferol (Vitamin D2) (Vitamin D2) 50,000 Units Cap, 50,000 UNITS PO Q2WK, (Reported) TAKES ON TUESDAY Escitalopram Oxalate (Lexapro) 10 Mg Tab, 10 MG PO DAILY, (Reported) Esomeprazole Magnesium (Nexium) 20 Mg Cap, 40 MG PO DAILY, (Reported) Folic Acid (Folic Acid) 1 Mg Tab, 1 MG PO DAILY, (Reported) Gabapentin (Gabapentin) 800 Mg Tab, 800 MG PO TID, (Reported) Glimepiride (Glimepiride) 2 Mg Tablet, 2 MG PO BID, (Reported) Indapamide (Indapamide) 2.5 Mg Tab, 2.5 MG PO DAILY, (Reported) Levothyroxine Sodium (Levothyroxine Sodium) 75 Mcg Tab, 75 MCG PO QAM, (Reported) Magnesium Oxide (Magnesium Oxide) 400 Mg Tablet, 400 MG PO BID, (Reported) Metformin HCl (Metformin HCl) 850 Mg Tab, 850 MG PO BID, (Reported) Nortriptyline HCl (Nortriptyline HCl) 25 Mg Cap, 25 MG PO QHS, (Reported) Polyethylene Glycol 3350 (Polyethylene Glycol 3350) 17 Gm Powd.pack, 17 GRAM PO DAILY for constipation, (Reported) Potassium Chloride (Potassium Chloride) 20 Meq Tab, 20 MEQ PO DAILY, (Reported) Rosuvastatin Calcium (Rosuvastatin Calcium) 40 Mg Tab, 40 MG PO DAILY, (Reported) TAKES AT NOON Sitagliptin Phosphate (Januvia) 100 Mg Tablet, 100 MG PO DAILY, (Reported) Scheduled PRN Albuterol Sulfate (Albuterol Sulfate) 2.5 Mg/0.5 Ml Neb, 2.5 MG INH DAILY PRN fo r SHORTNESS OF BREATH, (Reported) Albuterol Sulfate (Proventil Hfa) 108 Mcg/Act Aer, 2 PUFF INH Q4H PRN for SHORTNESS OF BREATH, (Reported) Celecoxib (Celebrex) 200 Mg Capsule, 200 MG PO DAILY PRN for PAIN, (Reported) Diclofenac Sodium (Voltaren) 1 % Gel, 1 DOSE TOP QID PRN for PAIN, (Reported) APPLY TO BOTH KNEES Ramelteon (Rozerem) 8 Mg Tab, 8 MG PO QHS PRN for INSOMNIA, (Reported) Sennosides/Docusate Sodium (Senexon-S 50-8.6 mg Tablet) 1 Each Tablet, 2 TABS PO QHS PRN for CONSTIPATION, (Reported) Tramadol HCl (Tramadol HCl) 50 Mg Tablet, 50 MG PO Q6H PRN for PAIN, (Reported) Miscellaneous Medications [Patient Comments] , (Reported) PATIENT CRYING, UNABLE TO ASSIST WITH MEDICATION HISTORY. MEDICATIONS LISTED HAVE BEEN FILLED RECENTLY AT HER PHARMACY Allergies Coded Allergies: gatifloxacin (Verified Allergy, Unknown, 11/30/18) ITCHING, REDNESS rosuvastatin (Verified Allergy, Unknown, 11/30/18) MYALGIA simvastatin (Verified Allergy, Unknown, 11/30/18) MYALGIA Xanthines (Verified Adverse Reaction, Intermediate, severe headache, 02/02/19) Sulfa (Sulfonamide Antibiotics) (Verified Adverse Reaction, Unknown, 11/30/18) TRIGGERS ASTHMA lemon (Verified Adverse Reaction, Unknown, 11/30/18) TRIGGERS ASTHMA rofecoxib (Verified Adverse Reaction, Unknown, 11/30/18) BRUISING theophylline (Verified Adverse Reaction, Unknown, 11/30/18) HEADACHE ERICKA ESCALERA MD Jun 05, 2019 18:03
== END 2019-06-05 11:44 | disposition home or self-care (01) | DRG 720 ==
LOC: M ED 19:06 → M ED INP 06-03 01:31 → ENRESERVDT 06-03 01:59 → ENRESERVTM 06-03 01:59 → M PCU 06-03 03:05 → M MSPAV 06-03 10:14
PROVIDERS: ADMIT Internal Medicine; ATTEND General Practice
DX: A41.9 Sepsis, unspecified organism (principal); G93.41 Metabolic encephalopathy; E87.0 Hyperosmolality and hypernatremia; E83.42 Hypomagnesemia; K76.0 Fatty (change of) liver, not elsewhere classified; E66.01 Morbid (severe) obesity due to excess calories; E83.51 Hypocalcemia; J45.50 Severe persistent asthma, uncomplicated; E11.9 Type 2 diabetes mellitus without complications; F32.9 Major depressive disorder, single episode, unspecified; F41.0 Panic disorder [episodic paroxysmal anxiety]; Z90.49 Acquired absence of other specified parts of digestive tract; K21.9 Gastro-esophageal reflux disease without esophagitis; M54.10 Radiculopathy, site unspecified; E86.0 Dehydration; N30.00 Acute cystitis without hematuria; E87.6 Hypokalemia; Z79.82 Long term (current) use of aspirin; Z79.899 Other long term (current) drug therapy; Z79.84 Long term (current) use of oral hypoglycemic drugs; Z88.8 Allergy status to other drugs, medicaments and biological substances; Z68.37 Body mass index [BMI] 37.0-37.9, adult; E26.9 Hyperaldosteronism, unspecified; B96.4 Proteus (mirabilis) (morganii) as the cause of diseases classified elsewhere

== ENCOUNTER → 2019-09-11 | Outpatient (CLI) | payer OTHER ==
[~2019-09-11] MED LIST changes: +AMOX500T2 PO; +BACL10TA8 PO; +CYCL-707 PO; -CYCL10TA PO; +MAGN400T2 PO; +PATIENT COMMENTS; +SENN1TAB96 PO; +TRAM50TA2 PO; +VITA50005 PO
--- NOTE | 2019-09-12 07:27 | REP ---
REASON: Pelvic pain. The patient is status post CAREY-BSO. The urinary bladder measures 4 x 3 x 4 cm. Transvesical imaging only was obtained. There are no gross abnormalities.
== END ==
LOC: M WHC 13:30
PROVIDERS: ATTEND Advanced Practice Midwife
DX: R10.2 Pelvic and perineal pain (principal)

== ENCOUNTER → 2019-12-04 | Outpatient (CLI) | payer OTHER ==
[~2019-12-04] MED LIST changes: +AMIT25TA; +FLUT1INH3
[2019-12-04 16:02] LABS: BASO # 0.1 10^3/uL (0.0-0.2); BASO % 0.6 % (0.0-1.0); EOS # 0.2 10^3/uL (0.0-0.5); EOS % 2.8 % (0.0-3.0); HEMATOCRIT 37.1 % (36.0-47.0); HEMOGLOBIN 11.7 g/dl (12.0-15.5); LYMPH # 2.6 10^3/uL (1.5-5.0); LYMPH % 33.3 % (24.0-44.0); MEAN CORPUSCULAR HGB CONC 31.5 g/dl (32.0-36.5); MEAN CORPUSCULAR VOLUME 92.1 fl (80.0-96.0); MONO # 0.4 10^3/uL (0.0-0.8); MONO % 5.3 % (0.0-5.0); NEUTROPHILS # 4.6 10^3/uL (1.5-8.5); NEUTROPHILS % 57.7 % (36.0-66.0); PLATELET COUNT, AUTOMATED 301 10^3/uL (150-450); RED BLOOD COUNT 4.03 10^6/uL (4.00-5.40); WHITE BLOOD COUNT 7.9 10^3/uL (4.0-10.0)
[2019-12-04 18:19] LABS: HEMOGLOBIN A1c 6.3 %
[2019-12-04 18:27] LABS: ALBUMIN 3.8 GM/DL (3.2-5.2); ALT/SGPT 18 U/L (12-78); BILIRUBIN,TOTAL 0.7 MG/DL (0.2-1.0); BLOOD UREA NITROGEN 17 MG/DL (7-18); CALCIUM LEVEL 9.6 MG/DL (8.8-10.2); CARBON DIOXIDE LEVEL 29 MEQ/L (21-32); CHLORIDE LEVEL 102 MEQ/L (98-107); CHOLESTEROL LEVEL 126 MG/DL (<200); CREATININE FOR GFR 0.67 MG/DL (0.55-1.30); FREE T4 1.14 NG/DL (0.76-1.46); GLOMERULAR FILTRATION RATE > 60.0 (>45); GLUCOSE, FASTING 63 MG/DL (70-100); HDL CHOLESTEROL 70 MG/DL (>40); LDL CHOLESTEROL 40 MG/DL (<100); MAGNESIUM LEVEL 2.1 MG/DL (1.8-2.4); NON-HDL-C 56 MG/DL; NT-PRO BNP 118 PG/ML (<125); POTASSIUM SERUM 4.1 MEQ/L (3.5-5.1); SODIUM LEVEL 137 MEQ/L (136-145); TOTAL PROTEIN 7.6 GM/DL (6.4-8.2); TRIGLYCERIDES LEVEL 78 MG/DL (<150)
[2019-12-05 13:52] LABS: PTH INTACT 110.4 PG/ML (18.5-88.0); TOTAL 25(OH) VITAMIN D 55.8 NG/ML (30.0-100.0)
== END ==
LOC: M PLALAB 14:01
PROVIDERS: ATTEND Family Medicine
DX: E11.9 Type 2 diabetes mellitus without complications (principal); E78.2 Mixed hyperlipidemia; I50.30 Unspecified diastolic (congestive) heart failure; G89.4 Chronic pain syndrome

== ENCOUNTER 2019-12-10 16:28 | Emergency (ER) | payer OTHER ==
[~2019-12-10] VITALS: Ht 167.6 cm; Wt 102.3 kg
[~2019-12-10 16:28] MED LIST changes: -AMIT25TA; -FLUT1INH3
[2019-12-10 17:26] LABS: BILIRUBIN, URINE MANUAL NEGATIVE (NEGATIVE); GLUCOSE, URINE (UA) MANUAL NEGATIVE (NEGATIVE); KETONE, URINE MANUAL NEGATIVE (NEGATIVE); UROBILINOGEN, URINE MANUAL NORMAL (NORMAL)
[2019-12-10 17:29] LABS: BACTERIA, URINE NONE SEEN; HYALINE CAST, URINE NONE SEEN /lpf (0-1); RBC, URINE TNTC /hpf (0-3); SQUAMOUS EPITHELIAL CELL URINE SMALL AMOUNT /hpf (SMALL AMT)
[2019-12-10] MEDS ORDERED: AMIT25TA (19:51)
[2019-12-10] MEDS ORDERED: FLUT1INH3 (19:51)
[2019-12-10] MEDS ORDERED: NS 1,000 ML IV ONE (20:30)
[2019-12-10 21:01] LABS: BASO # 0.1 10^3/uL (0.0-0.2); BASO % 0.6 % (0.0-1.0); EOS # 0.4 10^3/uL (0.0-0.5); EOS % 3.4 % (0.0-3.0); HEMATOCRIT 39.5 % (36.0-47.0); HEMOGLOBIN 12.7 g/dl (12.0-15.5); LYMPH # 4.6 10^3/uL (1.5-5.0); LYMPH % 40.5 % (24.0-44.0); MEAN CORPUSCULAR HEMOGLOBIN 29.3 pg (27.0-33.0); MEAN CORPUSCULAR HGB CONC 32.2 g/dl (32.0-36.5); MONO # 0.7 10^3/uL (0.0-0.8); MONO % 6.4 % (0.0-5.0); NEUTROPHILS # 5.5 10^3/uL (1.5-8.5); NEUTROPHILS % 48.9 % (36.0-66.0); PLATELET COUNT, AUTOMATED 338 10^3/uL (150-450); RED BLOOD COUNT 4.34 10^6/uL (4.00-5.40); WHITE BLOOD COUNT 11.3 10^3/uL (4.0-10.0)
[2019-12-10 21:13] LABS: INR 0.94; PROTHROMBIN TIME 12.8 SECONDS (12.5-14.3)
[2019-12-10 21:14] LABS: PARTIAL THROMBOPLASTIN TIME 25.6 SECONDS (24.2-38.5)
[2019-12-10] MEDS ORDERED: ISOVUE-370 76% 100ML VIAL As Ordered ONE (21:24)
--- NOTE | 2019-12-10 23:26 | REPVR ---
PROCEDURE INFORMATION: Exam: CT Abdomen And Pelvis With Contrast Exam date and time: 12/10/2019 10:55 PM Age: 64 years old Clinical indication: Abdominal pain; Generalized; Additional info: Vaginal bleeding post bladder injections TECHNIQUE: Imaging protocol: Computed tomography of the abdomen and pelvis with intravenous contrast. Radiation optimization: All CT scans at this facility use at least one of these dose optimization techniques: automated exposure control; mA and/or kV adjustment per patient size (includes targeted exams where dose is matched to clinical indication); or iterative reconstruction. Contrast material: ISOVUE 370; Contrast volume: 100 ml; Contrast route: INTRAVENOUS (IV); COMPARISON: CT ABD/PEL W/IV CONTRAST ONLY 06/02/2019 11:52 PM FINDINGS: Limitations: Examination is limited by motion artifact. Liver: Normal. No mass. Gallbladder and bile ducts: Status post cholecystectomy. CBD measures 9 mm in diameter. Pancreas: Normal. No ductal dilation. Spleen: Normal. No splenomegaly. Adrenals: Normal. No mass. Kidneys and ureters: No hydronephrosis bilaterally. Circumscribed hypodense lesion in the upper pole of the right kidney measuring 1.2 cm. Stomach and bowel: No abnormal bowel dilatation. No abnormal bowel wall thickening. Severe stool in the colon. No abnormal bowel dilatation. No abnormal bowel wall thickening. Negative for colonic diverticulitis. Appendix: The appendix is not seen. However, there is no evidence of appendicitis. Intraperitoneal space: Unremarkable. No free air. No significant fluid collection. Vasculature: Unremarkable. No abdominal aortic aneurysm. Lymph nodes: Unremarkable. No enlarged lymph nodes. Urinary bladder: Irregular lobulated lesion in the dependent portion of the bladder measuring 5.3 x 8.9 x 7.9 cm. Small dot of gas in the bladder. Reproductive: Status post hysterectomy. Bones/joints: Severe degenerative spine. No acute fracture. Fixation nail in the right femoral shaft. Soft tissues: Unremarkable. IMPRESSION: 1. Irregular lobulated lesion in the dependent portion of the bladder. Possible clot. Unclear etiology. Correlate clinically. 2. Circumscribed hypodense lesion in the upper pole of the right kidney. No follow-up is necessary. Consistent with renal cyst. Unchanged from prior. 3. Additional findings as described. Electronically signed by: Ricarda Valera On 12/10/2019 23:25:52 PM
[2019-12-11] MEDS ORDERED: NORCO 5/325MG TABLET (BULK FOR ED) PO ONE
[2019-12-11] MEDS ORDERED: MORPHINE 4 MG/ML 1ML VIAL/SYRINGE (J2270) IV ONE
[2019-12-11 00:04] VITALS: BP 108/69
[2019-12-11] MEDS ORDERED: diphenhydrAMINE 50MG/ML VIAL (J1200) IV STA (00:24)
--- NOTE | 2019-12-12 12:46 | ED PDOC ---
Post-Departure Follow-Up mari wilburn and devendra faxed formal report of ct abd/p for fu Milton Kerns MD Dec 12, 2019 12:46
== END 2019-12-11 01:01 | disposition home or self-care (01) ==
LOC: M ED 16:28
DX: R31.9 Hematuria, unspecified (principal); R10.30 Lower abdominal pain, unspecified; N32.9 Bladder disorder, unspecified; Z88.8 Allergy status to other drugs, medicaments and biological substances; Z88.2 Allergy status to sulfonamides; Z88.1 Allergy status to other antibiotic agents; Z79.899 Other long term (current) drug therapy; Z79.82 Long term (current) use of aspirin; Z79.84 Long term (current) use of oral hypoglycemic drugs
CPT/HCPCS: 74177; 80047; 81000; 85025; 85610; 85730; 96361; 96374; 96375; 99284; J1200; J2270; Q9967

== ENCOUNTER 2020-04-29 05:13 | Inpatient (IN) | payer OTHER ==
[~2020-04-29] VITALS: Ht 167.6 cm; Wt 102.0 kg
[~2020-04-29 05:13] MED LIST changes: +AMIT25TA17 PO; +ESCI10TA16 PO; -ESCI10TA2 PO; +FLUT1INH3
--- OUTSIDE RECORDS SUMMARY | 2020-04-29 05:18 | CCD | Continuity of Care Document ---
Author Author Trini MAR MD Organization Unknown Address [address] [place] [id number] Phone [phone] Care Team Providers Care Motorized Squad Lieutenant Name Role Phone Kimani Ann M.D. AUTM [phone] Andrea Wadsworth D.O. AUTM [phone] Oleg Ling M.D. AUTM [phone] Problems Active Problems Provider Date Diabetes mellitus Jasper Tiwari M.D. Onset: 04/05/2014 Urinary incontinence Jasper Tiwari M.D. Onset: 04/05/2014 Urinary tract infectious disease Jasper Tiwari M.D. Onset: 04/05/2014 Urge incontinence of urine Jasper Tiwari M.D. Onset: 2014 Female stress incontinence Jasper Tiwari M.D. Onset: 2014 History of chronic urinary tract infection Disha Combs Onset: 06/11/2014 Atrophic vaginitis Monica Mar MD Onset: 7 Acquired renal cystic disease Monica Mar MD Onset: 05/20/2016 Overactive bladder Monica Mar MD Onset: 7 Increased frequency of urination Monica Mar MD Ons et: 06/24/2016 Microscopic hematuria LINNEA Lin Onset: 02/09/2017 Total urinary incontinence LINNEA Lin Onset: 2016 Benign neoplasm of kidney LINNEA Lin Onset: 017 Retention of urine Monica Mar MD Onset: 8 Uninhibited neurogenic bladder Monica Mar MD Onset : 12/27/2017 Overactive bladder LINNEA Lin Onset: 07/05/2019 Acute cystitis Monica Mar MD Onset: 0 Type 2 diabetes mellitus Onset: 03/28/19 16 Social History Type Date Description Comments Sex Unknown Tobacco Use Reviewed: 10/11/19 Never Smoked Cigarettes Smoking Status Reviewed: 04/07/20 Never Smoked Cigarettes ETOH Use Patient denies alcohol use Tobacco Use Start: Unknown Patient has never smoked Allergies, Adverse Reactions, Alerts Active Allergies Reaction Severity Comments Date TeQuin No issues with Cipro per pt 04/05/2014 Crestor 04/05/2014 Zocor 04/05/2014 Vioxx 04/05/2014 Luis Sprinkles 7 Medications Active Medications SIG Qnty Indications Ordering Provide r Date Ciprofloxacin HCL 500mg Tablets 1 by mouth twice a day x 3 days 6taanthony Mar MD 05/2020 Macrodantin 50mg Capsules 1 by mouth every at bedtime after completing cipro 90caps Monica hassan MD 04/09/2020 Metronidazole 500mg Tablets 1 tab by mouth twice a day x 1 week 14taanthony Mar MD 11/2019 Tamsulosin HCL 0.4mg Capsules Take One Capsule By Mouth 30 Minutes After Evening Meal 30caps Jaime Mar MD 01/10/2020 Estrace 0.1mg/GM Cream 1/4 gram to periurethral area daily 42.500gm N95.2 Monica Mar MD 09/04/2019 Folic Acid 1mg Tablets 1 by mouth every day Unknown Potassium Chloride ER 20Meq Tablet s ER 1 by mouth every day Unknown Methylprednisolone 1 po qd Unknown Breo Ellipta 200-25mcg/Inh Aerosol 1 puff every day Unknown Gabapentin 800mg Tablets 1 by mouth three times a day Unknown Rozerem 8mg Tablets take one tablet 30 minutes before bedtime prn Unknown Flexeril 5mg and 10mg - 3x a day Unknown 0 Oxygen Unknown Underpads Unknown Glucose Meter Test Strips Advanced U nknown Rosuvastatin Calcium 40mg Tablets Unknown Metformin HCL 500mg Tablets Unknown Trazodone HCL 100mg Tablets Unknown Dok 100mg Tablets Unknown Cyclobenzaprine HCL 5mg Tablets Unknown Baclofen 10mg Tablets Take one Tablet By Mouth four Daily as Needed Unknown Cymbalta 60mg Caps DR Part 1 by mouth every day 30{caps Unknown Ergocalciferol 19068Uxmd Capsules 1 po every other week 8caps Unknown Nexium 40mg Packet 1 b y mouth every day 30{units Unknown Nortriptyline HCL 25mg Capsules 1 po q hs Unknown Lexapro 10mg Tablets 1 by mouth every day Unknown Oxycodone HCL 5mg/5ML Solution 7.5ml 5 times a day Unknown Voltaren 1% Gel Unknown Pulmicort 0.5mg/2ML Suspension nebuliaer tid Unknown Proventil HFA 108(90Base) mcg/Act Aerosol Unknown Klonopin 0.5mg Tablets 1 tab by mouth twice a day as needed anxiety 30{tabs Unknown Indapamide 2.5mg Tablets take 1 tablet by mouth one time daily 90tabs Unknown Januvia 100mg Tablets 1 po qd Unknown Aspirin 81mg Chewtabs 1 by mouth every day Unknown Nystatin 176919Cxit/GM Cream apply topically to affected areas twice a day 30gm Unknown Magnesium Oxide 400mg Tablets 2 by mouth twice a day Unknown Levothyroxine Sodium 75mcg Tablets 1 by mouth every day Unknown Colace 100mg Capsules 2 by mouth twice a day prn Unknown History Medications Macrobid 100mg Capsules 1 capsule by mouth twice a day x 10 days 20dagoberto Mar MD - 01/14/2020 Ciprofloxacin HCL 250mg Tablets 1 by mouth twice a day x 3 days 6tabs Monica Mar MD 10/2019 - 01/10/2020 Ciprofloxacin HCL 250mg Tablets 1 by mouth twice a day x 3 days 6tabs N39.41 Monica Mar MD - 12/13/2019 Alprazolam 1mg Tablets 1 by mouth 1-2 hours before procedure; istop# [id number] 1tabs N31.0 Hayley Mar MD 10/11/2019 - 12/16/2019 Medications Administered in Office Medication SIG Qnty Indications Ordering Provider Date Botox 50 Units For Waste For 200 Units J W Modifier Injection Monica maynard MD 11/27/2019 Botox 200 Units- I Vial Injection Monica Mar MD 11/27/2019 Botox 50 Units For Waste For 200 Units J W Modifier Injection Monica maynard MD 08/30/2018 Botox 150 Units Injection Monica Mar MD 08/30/2018 Immunizations Description No Information Available Vital Signs Date Vital Result Comment 04/07/2020 2:27pm Post Void Residual ml 10 Cathete rization, Indication: nitrate + 01/10/2020 2:01pm Post Void Residual ml 150 Cathete rization, Indication: nitrate + Results Test Acquired Date Facility Test Result H/L Range Note 230 Ua Routine 04/07/2020 [facility] REF TO DR THEODORE ON ORDER FOR (315)- - Ua Glucose Negative Ua Protein Trace Ua Nitrite Positive Ua Leuko Trace Ua Blood Trace-intact Ua Color Not Entered Ua Ketones Trace Ua Clarity Not Entered Ua Specific [place] 1.025 1.003-1.030 Ua PH 5.0 5.0-7.5 Ua Bilirubin Small Ua Urobilinogen 0.2 E.U./dL 0.0-1.0 Laboratory test finding 04/07/[address] [address] [phone] Urine Culture <SEE NOTE> 1 230 Ua Routine 04/07/2020 [facility] REF TO DR ADDRESS ON ORDER FOR (315)- - Ua Glucose Negative Ua Protein Negative Ua Nitrite Positive Ua Leuko Trace Ua Blood Negative Ua Color Not Entered Ua Ketones Trace Ua Clarity Not Entered Ua Specific [place] >=1.030 1.003-1.030 Ua PH 5.0 5.0-7.5 Ua Bilirubin Small Ua Urobilinogen 0.2 E.U./dL 0.0-1.0 Vaginosis(BV) Test 01/10/[address] [address] [phone] Linda By Dna Probe NEGATIVE Negative Gardnerella By Dna Probe POSITIVE Abnormal Negative Trichomonas By Dna Probe NEGATIVE Negative 2 Laboratory test finding 01/10/[address] [address] [phone] Urine Culture <SEE NOTE> 3 230 Ua Routine 01/10/2020 [facility] REF TO DR ADDRESS ON ORDER FOR (315)- - Ua Glucose Negative Ua Protein Negative Ua Nitrite Positive Ua Leuko Trace Ua Blood Negative Ua Color Not Entered Ua Ketones 15 mg/dL Ua Clarity Not Entered Ua Specific [place] 1.020 1.003-1.030 Ua PH 6.5 5.0-7.5 Ua Bilirubin Negative Ua Urobilinogen 0.2 E.U./dL 0.0-1.0 230 Ua Routine 01/10/2020 [facility] REF TO DR ADDRESS ON ORDER FOR (315)- - Ua Glucose Negative Ua Protein Negative Ua Nitrite Positive Ua Leuko Small Ua Blood Trace-intact Ua Color Not Entered Ua Ketones 15 mg/dL Ua Clarity Not Entered Ua Specific [place] 1.025 1.003-1.030 Ua PH 6.0 5.0-7.5 Ua Bilirubin Negative Ua Urobilinogen 0.2 E.U./dL 0.0-1.0 Laboratory test finding 12/11/[address] [address] [phone] Urine Culture <SEE NOTE> 4 230 Ua Routine 11/27/2019 [facility] REF TO DR ADDRESS ON ORDER FOR (315)- - Ua Glucose Negative Ua Protein Negative Ua Nitrite Negative Ua Leuko Negative Ua Blood Negative Ua Color Not Entered Ua Ketones Negative Ua Clarity Not Entered Ua Specific [place] >=1.030 1.003-1.030 Ua PH 5.5 5.0-7.5 Ua Bilirubin Negative Ua Urobilinogen 0.2 E.U./dL 0.0-1.0 Laboratory test finding 10/11/[address] [address] [phone] Urine Culture <SEE NOTE> 5 230 Ua Routine 10/11/2019 [facility] REF TO DR ADDRESS ON ORDER FOR (473)- - Ua Glucose Negative Ua Protein 30 mg/dL Ua Nitrite Negative Ua Leuko Negative Ua Blood Negative Ua Color Not Entered Ua Ketones 15 mg/dL Ua Clarity Not Entered Ua Specific [place] >=1.030 1.003-1.030 Ua PH 5.0 5.0-7.5 Ua Bilirubin Moderate Ua Urobilinogen 0.2 E.U./dL 0.0-1.0 1 Run: 04/09/20 1043 INTERFACED REPORT Name: Trini Jiang Age/Sex: 64/F Location: [facility] Acct: [id number] Unit: [id number] Status: REG REF Room/Bed: Re04/07/20 Disch: Att Dr: Monica Mar MD Specimen #: [id number] Ordered : 04/07/2003/27/1856 Collected : 04/07/2003/27/1329 By: OFFICE Received: 04/07/2003/27/1856 By: CYNTHIA Source: URINE CATH Specimen Description: Procedure Result COLONY COUNT Final COLONY COUNT GREATER THAN 100,000 CFU/ML URINE CULTURE Final COLIFORMS MANY Organism 1 ESCHERICHIA COLI 1. ESCHERICHIA COLI DONNA Int --------- --- AMIKACIN <=16 S AMPICILLIN <=8 S AMPICILLIN/SULBACTAM <=8/4 S AZTREONAM <=4 S CEFAZOLIN <=2 S CEFEPIME <=2 S CEFTAZIDIME <=1 S CEFTRIAXONE <=1 S CIPROFLOXACIN <=1 S GENTAMICIN <=4 S IMIPENEM <=1 S LEVOFLOXACIN <=2 S MEROPENEM <=1 S NITROFURANTOIN <=32 S TETRACYCLINE <=4 S TOBRAMYCIN <=4 S TRIMETHOPRIM/SULFAMETHOXAZOLE <=2/38 S PIPERACILLIN/TAZOBACTAM <=16 S S = Susceptible MS = Moderately Susceptible I = Intermediate R = Resistant TANIA = Beta Lactamase Positive DONNA = MCG/mL BLANK = Not Tested or Advisable URINE CULTURE Preliminary (Corrected) COLIFORMS MANY END OF REPORT 2 TESTING PERFORMED BY NUCLEIC ACID HYBRIDIZATION 3 Run: 01/12/20 1121 INTERFACED REPORT Name: Trini Jiang Age/Sex: 64/F Location: LAB Acct: [id number] Unit: [id number] Status: REG REF Room/Bed: Re01/10/20 Disch: Junior Dr: Amira Garg Specimen #: [id number] Ordered : 01/10/2007/24/1930 Collected : 01/10/2007/24/1401 By: OFFICE Received: 01/10/2007/24/1930 By: EVERARDO Source: URINE CATH Specimen Description: Procedure Result COLONY COUNT Final COLONY COUNT LESS THAN 1,000 CFU/ML URINE CULTURE Final NO GROWTH NO GROWTH <18 HOURS NO SIGNIFICANT GROWTH 42 HOURS URINE CULTURE Preliminary (Corrected) NO GROWTH NO GROWTH <18 HOURS END OF REPORT 4 Run: 12/13/19 1243 INTERFACED REPORT Name: Trini Jiang Bridger Age/Sex: 64/F Location: [facility] Acct: [id number] Unit: [id number] Status: REG REF Room/Bed: Re12/11/19 Disch: Att Dr: Monica Mar MD Specimen #: [id number] Ordered : 12/11/1908/24/2102 Collected : 12/11/1908/25/1547 By: OFFICE Received: 12/11/1908/24/2102 By: GMCORNELL Source: URINE CATH Specimen Description: Procedure Result COLONY COUNT Final COLONY COUNT GREATER THAN 100,000 CFU/ML URINE CULTURE Final [facility] POSSIBLE ENTEROCOCCI MANY Organism 1 ENTEROCOCCUS FAECALIS 1. ENTEROCOCCUS FAECALIS DONNA Int --------- --- AMPICILLIN <=2 S DAPTOMYCIN <=1 S CIPROFLOXACIN <=1 S GENTAMICIN 500 <=500 S LEVOFLOXACIN <=1 S NITROFURANTOIN <=32 S PENICILLIN 2 S RIFAMPIN >2 R STREPTOMYCIN SYNERGY SCREEN <=1000 S TETRACYCLINE >8 R VANCOMYCIN 1 S Streptomycin Synergy Screen S Gentamicin Synergy Screen S S = Susceptible MS = Moderately Susceptible I = Intermediate R = Resistant TANIA = Beta Lactamase Positive DONNA = MCG/mL BLANK = Not Tested or Advisable URINE CULTURE Preliminary (Corrected) [facility] POSSIBLE ENTEROCOCCI MANY END OF REPORT 5 Run: 10/13/19 0828 INTERFACED REPORT Name: Trini Jiang Bridger Age/Sex: 64/F Location: [facility] Acct: [id number] Unit: [id number] Status: REG REF Room/Bed: Re10/11/19 Disch: Att Dr: Amira Garg Specimen #: [id number] Ordered : 10/11/1908/24/1720 Collected : 10/11/1908/24/1124 By: OFFICE Received: 10/11/1908/24/1720 By: GMACDOUGAL Source: URINE CATH Specimen Description: Procedure Result COLONY COUNT Final COLONY COUNT LESS THAN 1,000 CFU/ML URINE CULTURE Final NO GROWTH NO GROWTH <18 HOURS NO GROWTH 42 HOURS URINE CULTURE Preliminary (Corrected) NO GROWTH NO GROWTH <18 HOURS END OF REPORT Procedures Date Code Description Status 04/07/2020 40062 Insertion,Of Non Ind welling Bladder Catheter Eg Straight Catheter Completed 01/10/2020 18425 Insertion,Of Non Ind welling Bladder Catheter Eg Straight Catheter Completed 12/11/2019 54304 Cystourethroscopy, Separate Proc edure Completed 12/11/2019 46155 Bladder Irrigation, Simple Lavag e And/Or Instillation Completed 11/27/2019 70476 Cystourethroscopy,/W Injects For Chemodenervation Of The Bladder Completed 11/27/2019 35334 Cystourethroscopy, W/Fulguration Inc Cryosurgery Or Laser Surg Completed 10/11/2019 46019 Insertion,Of Non Ind welling Bladder Catheter Eg Straight Catheter Completed Medical Devices Description No Information Available Encounters Type Date Location Provider Dx Diagnosis Office Visit 04/07/2020 1:15p [facility] Monica maynard MD Z87.440 Personal history of urinary (tract) infe ctions N31.0 Uninhibited neuropathic blad kylee, not elsewhere classified N32.81 Overactive bladder N39.41 Urge incontinence N95.2 Postmenopausal atrophic vagi nitis Office Visit 01/10/2020 1:30p [facility] Amira Forest, P A N32.81 Overactive bladder N39.41 Urge incontinence R31.0 Gross hematuria N95.2 Postmenopausal atrophic vagi nitis N76.0 Acute vaginitis R33.8 Other retention of urine Z87.440 Personal history of urinary (tract) infections Office Visit 10/11/2019 11:00a 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, not elsewhere classified Monica Mar MD 04/07/2020 N32.81 Overactive bladder Monica maynard MD 04/07/2020 N39.41 Urge incontinence Monica hassan MD 04/07/2020 N95.2 Postmenopausal atrophic vaginiti s Monica Mar MD 01/10/2020 N32.81 Overactive bladder Amira Forest, PA 01/10/2020 N39.41 Urge incontinence Amira Garg, PA 01/10/2020 R31.0 Gross hematuria Amira Garg, PA 01/10/2020 N95.2 Postmenopausal atrophic vaginiti s Amira Forest, PA 01/10/2020 N76.0 Acute vaginitis Amira Forest, PA 01/10/2020 R33.8 Other retention of urine Amira Garg, PA 01/10/2020 Z87.440 Personal history of urinary (tra ct) infections Amira Garg, PA 12/11/2019 R31.0 Gross hematuria Monica hays MD 11/27/2019 N32.81 Overactive bladder Monica maynard MD 11/27/2019 N39.41 Urge incontinence Monica hassan MD 11/27/2019 N95.2 Postmenopausal atrophic vaginiti s Monica Mar MD 11/27/2019 Z87.440 Personal history of urinary (tra ct) infections Monica Mar MD 10/11/2019 N32.81 Overactive bladder ANTELMO Hinds 10/11/2019 N39.41 Urge incontinence ANTELMO Hinds 10/11/2019 N28.1 Cyst of kidney, acquired ANTELMO Hinds 10/11/2019 N95.2 Postmenopausal atrophic vaginiti s ANTELMO Hinds 10/11/2019 Z87.440 Personal history of urinary (tra ct) infections ANTELMO Hinds Plan of Treatment Future Appointment(s):* 05/05/2020 1:30 pm - Neal Nurse at [place] * 05/05/2020 2:00 pm - Monica Mar MD at [place]/ [facility] 04/07/2020 - Monica Mar MD* Z87.440 Personal history of urinary (tract) infections* Comments:* Utilizing sterile technique a 14 [place] catheter was utilized to collect a specimen for culture. I plan to contact her with an appropriate antibiotic on Tuesday when I have the results. 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 She seems to do well with the 150 unit dose. She is very concerned about bleeding since she had clot retention with her last injection. She knows to not take any blood thinners and we will be extra cautious to be sure she is not bleeding after the injection. * N32.81 Overactive bladder * N39.41 Urge incontinence* Comments:* I think her symptoms are worse today because she has an active urinary tract infection. I will move her injection up a few weeks to fit her schedule better. * N95.2 Postmenopausal atrophic vaginitis* Comments:* Continue vaginal estrogen cream * All * Comments:* Patient is instructed to contact us if any questions, concerns, or problems at any time prior to scheduled follow-up appointment. Functional Status Description No Information Available Mental Status Description No Information Available Referrals Refer to Reason for Referral Status Appt Date Monica Mar MD Botox c/d [facility] s/w Natividad ref# [id number]- ok to buy and bill, auth required. c/d [facility] on 03/31/20 s/w kelly ref# [id number] auth required and ok to buy and bill .si Created [address] [place] [phone]
--- OUTSIDE RECORDS SUMMARY | 2020-04-29 05:18 | CCD | Continuity of Care Document ---
Author Author Trini MAR MD Organization Unknown Address [address] [place] [id number] Phone [phone] Care Team Providers Care Property Condition Assessor Name Role Phone Kimani Ann M.D. AUTM [phone] Andrea Wadsworth D.O. AUTM [phone] Oleg Ling M.D. AUTM [phone] Problems Active Problems Provider Date Diabetes mellitus [...] by mouth every day 30{caps Unknown Ergocalciferol [id number] Capsules 1 po every other week 8caps [...] 1 by mouth every day Unknown Nystatin 091989Jkof/GM Cream apply topically to affected areas twice [...] 6tabs N39.41 Monica Mar MD - 12/13/2019 Medications Administered in Office Medication SIG Qnty [...] Trace Ua Clarity Not Entered Ua Specific [place] 1.025 1.003-1.030 Ua PH 5.0 5.0-7.5 Ua Bilirubin Small Ua Urobilinogen 0.2 E.U./dL 0.0-1.0 Laboratory test finding 04/07/[address] [address] [phone] Urine Culture <SEE NOTE> 1 230 Ua Routine 04/07/2020 [facility] REF TO DR ADDRESS ON ORDER FOR (315)- - Ua Glucose Negative Ua Protein Negative Ua Nitrite Positive Ua Leuko Trace Ua Blood Negative Ua Color Not Entered Ua Ketones Trace Ua Clarity Not Entered Ua Specific [place] >=1.030 1.003-1.030 Ua PH 5.0 5.0-7.5 Ua Bilirubin Small Ua Urobilinogen 0.2 E.U./dL 0.0-1.0 Vaginosis(BV) Test 01/10/[address] [address] [phone] Linda By Dna Probe NEGATIVE Negative Gardnerella By Dna Probe POSITIVE Abnormal Negative Trichomonas By Dna Probe NEGATIVE Negative 2 Laboratory test finding 01/10/[address] [address] [phone] Urine Culture <SEE NOTE> 3 230 Ua Routine 01/10/2020 [facility] REF TO DR ADDRESS ON ORDER FOR (315)- - Ua Glucose Negative Ua Protein Negative Ua Nitrite Positive Ua Leuko Trace Ua Blood Negative Ua Color Not Entered Ua Ketones 15 mg/dL Ua Clarity Not Entered Ua Specific [place] 1.020 1.003-1.030 Ua PH 6.5 5.0-7.5 Ua Bilirubin Negative Ua Urobilinogen 0.2 E.U./dL 0.0-1.0 230 Ua Routine 01/10/2020 [facility] REF TO DR ADDRESS ON ORDER FOR (315)- - Ua Glucose Negative Ua Protein Negative Ua Nitrite Positive Ua Leuko Small Ua Blood Trace-intact Ua Color Not Entered Ua Ketones 15 mg/dL Ua Clarity Not Entered Ua Specific [place] 1.025 1.003-1.030 Ua PH 6.0 5.0-7.5 Ua Bilirubin Negative Ua Urobilinogen 0.2 E.U./dL 0.0-1.0 Laboratory test finding 12/11/[address] [address] [phone] Urine Culture <SEE NOTE> 4 230 Ua Routine 11/27/2019 [facility] REF TO DR ADDRESS ON ORDER FOR (315)- - Ua Glucose Negative Ua Protein Negative Ua Nitrite Negative Ua Leuko Negative Ua Blood Negative Ua Color Not Entered Ua Ketones Negative Ua Clarity Not Entered Ua Specific [place] >=1.030 1.003-1.030 Ua PH 5.5 5.0-7.5 Ua Bilirubin Negative Ua Urobilinogen 0.2 E.U./dL 0.0-1.0 1 Run: 04/09/20 1043 INTERFACED REPORT Name: Trini Jiang Age/Sex: 64/F Location: [facility] Acct: [id number] Unit: [id number] Status: REG REF Room/Bed: Re04/07/20 Disch: Junior Dr: Monica Mar MD Specimen #: [id number] Ordered : 04/07/2003/27/1856 Collected : 04/07/2003/27/1329 By: [...] REPORT Name: Trini Jiang Age/Sex: 64/F Location: [facility] Acct: [id number] Unit: [id number] Status: REG REF Room/Bed: Re01/10/20 Disch: Att Dr: Amira Garg PA Specimen #: [id number] Ordered : 01/10/2007/24/1930 Collected : 01/10/2007/24/1401 By: OFFICE Received: 01/10/2007/24/1930 By: GMCORNELL Source: URINE CATH Specimen Description: Procedure Result COLONY COUNT Final COLONY COUNT LESS THAN 1,000 CFU/ML URINE CULTURE Final NO GROWTH NO GROWTH <18 HOURS NO SIGNIFICANT GROWTH 42 HOURS URINE CULTURE Preliminary (Corrected) NO GROWTH NO GROWTH <18 HOURS END OF REPORT 4 Run: 12/13/19 1243 INTERFACED REPORT Name: ApolinarTrini Age/Sex: 64/F Location: LAB Acct: [id number] Unit: [id number] Status: REG REF Room/Bed: Re12/11/19 Disch: Att Dr: Monica Mar MD Specimen #: [id number] Ordered : 12/11/1908/24/2102 Collected : 12/11/1908/25/1547 By: OFFICE Received: 12/11/1908/24/2102 By: EVERARDO Source: URINE CATH Specimen Description: [...] [facility] POSSIBLE ENTEROCOCCI MANY END OF REPORT Procedures Date Code Description Status 04/07/2020 49780 Insertion,Of Non Ind welling Bladder Catheter Eg Straight Catheter Completed 01/10/2020 51950 Insertion,Of Non Ind welling Bladder Catheter Eg Straight Catheter Completed 12/11/2019 36372 Cystourethroscopy, Separate Proc edure Completed 12/11/2019 15556 Bladder Irrigation, Simple Lavag e And/Or Instillation Completed 11/27/2019 68454 Cystourethroscopy,/W Injects For Chemodenervation Of The Bladder Completed 11/27/2019 97155 Cystourethroscopy, W/Fulguration Inc Cryosurgery Or Laser Surg Completed Medical Devices Description No Information Available Encounters Type Date Location Provider Dx Diagnosis Office Visit 04/07/2020 1:15p [facility] Monica maynard MD 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, 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 N32.81 Overactive bladder N39.41 Urge incontinence N95.2 Postmenopausal atrophic vagi nitis Z87.440 Personal history of urinary (tract) infections Office Visit 01/10/2020 1:30p [email or web address] Amira Garg P A N32.81 Overactive bladder N39.41 Urge incontinence R31.0 Gross hematuria N95.2 Postmenopausal atrophic vagi nitis N76.0 Acute vaginitis R33.8 Other retention of urine Z87.440 Personal history of urinary (tract) infections Assessments Date Code Description Provider 04/07/2020 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, not elsewhere classified Monica Mar MD 04/07/2020 N32.81 Overactive bladder Monica maynard MD 04/07/2020 N39.41 Urge incontinence Monica hassan MD 04/07/2020 N95.2 Postmenopausal atrophic vaginiti s Monica Mar MD 04/07/2020 Z87.440 Personal history of urinary (tra ct) infections Monica Mar MD 01/10/2020 N32.81 Overactive bladder ANTELMO Hinds 01/10/2020 N39.41 Urge incontinence Amira Garg, PA 01/10/2020 R31.0 Gross hematuria Amira Garg PA 01/10/2020 N95.2 Postmenopausal atrophic vaginiti s Amira Garg PA 01/10/2020 N76.0 Acute vaginitis Amira Garg PA 01/10/2020 R33.8 Other retention of urine Amira Garg PA 01/10/2020 Z87.440 Personal history of urinary (tra ct) infections Amira Garg PA 12/11/2019 R31.0 Gross hematuria Monica hays MD 11/27/2019 N32.81 Overactive bladder Monica maynard MD 11/27/2019 N39.41 Urge incontinence Monica hassan MD 11/27/2019 N95.2 Postmenopausal atrophic vaginiti s Monica Mar MD 11/27/2019 Z87.440 Personal history of urinary (tra ct) infections Monica Mar MD Plan of Treatment Future Appointment(s):* 05/05/2020 1:30 pm - [facility] * 05/05/2020 2:00 pm - [facility] 04/07/2020 - Monica Mar MD* 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 I plan to contact her with an appropriate antibiotic on Tuesday when I have the results. After that I plan to place her on a prophylactic d ose of antibiotics until after her next Botox injection * Follow up:* Please move her next Botox 150 units to early May * All * Comments:* Patient is instructed to contact us if any questions, concerns, or problems at any time prior to scheduled follow-up appointment. Functional Status Description No Information Available Mental Status Description No Information Available Referrals Refer to Dr Reason for Referral Status Appt Date Monica Mar MD Botox c/d [facility] [place] s/w Natividad ref# [id number]- ok to buy and bill, auth required. c/d [facility] [place] on 03/31/20 s/w kelly ref# [id number] auth required and ok to buy and bill .si Created [address] [place] [address] [phone]
--- OUTSIDE RECORDS SUMMARY | 2020-04-29 05:18 | CCD ---
Author Organization Unknown Address [address] [place] [address] Phone [phone] Care Team Providers Care Technology Applications Engineer Name Role Phone IRLANDA LONGORIA MD 3 [phone] Allergies Code Code System Name Reaction Severity Status Onset Rosuvastatin Calcium Active 06/10/2014 Tequin Active 06/10/2014 25996 RxNorm Theophylline Active 06/11/19 15 Vioxx Active 06/10/2014 370874 RxNorm Zocor Active 06/10/2014 Sulfa (Sulfonamide Antibiotics) Chest Pain Moderate Active Notes: Some allergies listed in Document s: #[id number], #[id number] could not be added to this patient's chart. Please review these documents and add these allergies to the patient's chart manually as needed. Medications Name Status Start Date Stop Date acetaminophen 500 mg tablet TAKE TWO TABLETS BY MOUTH EVERY EIGHT HOURS NEEDED FOR PAIN Active Not available albuterol sulfate 2.5 mg/3 mL (0.083 %) solution for nebulization INHALE ONE VIAL VIA NEBULIZER FOUR TIMES DAILY NEEDED Active Not available albuterol sulfate HFA 90 mcg/actuation aerosol inhaler Active Not available alendronate 70 mg tablet Completed 018 alogliptin 25 mg tablet Active Not avai lable alprazolam 1 mg tablet Completed 0 amitriptyline 25 mg tablet TAKE ONE TABLET BY MOUTH @8PM Active Not avail able amoxicillin 500 mg-potassium clavulanate 125 mg tablet TAKE ONE TABLET BY MOUTH EVERY TWELVE HOURS Completed 02/14/2020 Arnuity Ellipta 200 mcg/actuation powder for inhalation Complete d 02/03/2018 aspirin 81 mg chewable tablet TAKE ONE TABLET BY MOUTH @8AM Active Not avail able aspirin 81 mg tablet,delayed release Completed 08/14/2018 atorvastatin 80 mg tablet Active Not av ailable baclofen 10 mg tablet TAKE ONE TABLET BY MOUTH EVERY MORNING, TAKE ONE TABLET BY MOUTH @12PM, AND TAKE TWO TABLETS BY MOUTH AT BEDTIME NEEDED Active Not available Breo Ellipta 200 mcg-25 mcg/dose powder for inhalation INHALE ONE PUFF BY MOUTH DAILY Active Not avai lable cefdinir 300 mg capsule Completed 02/14/20 20 cefuroxime axetil 500 mg tablet Completed 02/03/2018 celecoxib 200 mg capsule TAKE ONE CAPSULE BY MOUTH @12PM Active Not geraldine ilable ciprofloxacin 250 mg tablet TAKE ONE TABLET BY MOUTH TWICE DAILY FOR 3 DAYS Completed 02/14/2020 ciprofloxacin 500 mg tablet TAKE ONE TABLET BY MOUTH TWICE DAILY FOR THREE DAYS Active Not available Citrate of Magnesia oral 1 tablet daily Active Not available clonazepam 0.5 mg tablet Completed 018 clotrimazole 10 mg asia Completed 2018 cromolyn 20 mg/2 mL solution for nebuliz ation INHALE CONTENTS OF ONE VIAL VIA NEBULIZER THREE TIMES DAILY Active Not available cyclobenzaprine 10 mg tablet TAKE ONE TABLET BY MOUTH @8AM and TAKE ONE TABLET BY MOUTH @12PM and TAKE ONE TABLET BY MOUTH @8PM Active Not available cyclobenzaprine 5 mg tablet TAKE ONE TABLET BY MOUTH @8AM and TAKE ONE TABLET BY MOUTH @12PM and TAKE ONE TABLET BY MOUTH @8PM Active Not available diclofenac 1 % topical gel APPLY FOUR GRAMS TOPICALLy FOUR TIMES DAILY TO BOTH KNEES Active Not available DOK 100 mg capsule TAKE TWO CAPSULES BY MOUTH @8AM and TAKE TWO CAPSULES @12PM Active Not available doxycycline monohydrate 100 mg capsule TAKE ONE CAPSULE BY MOUTH TWICE DAILY FOR SEVEN DAYS Completed 02/14/2020 duloxetine 60 mg capsule,delayed release TAKE ONE CAPSULE BY MOUTH @8AM and TAKE ONE CAPSULE @12PM Active Not available enoxaparin 30 mg/0.3 mL subcutaneous syr travis INJECT 0.3 MILLILITERS SUBCUTANEOUSLY EVERY 12 HOURS FOR TWO WEEKS Completed 02/14/2020 enoxaparin 40 mg/0.4 mL subcutaneous syringe Active Not available escitalopram 10 mg tablet TAKE ONE TABLET BY MOUTH @12PM Active Not avai lable esomeprazole magnesium 20 mg capsule,del ayed release TAKE TWO CAPSULES BY MOUTH @8AM Active Not geraldine ilable estradiol 0.01% (0.1 mg/gram) vaginal cream Completed 02/14/2020 fluticasone 232 mcg-salmeterol 14 mcg/actuation breath activated powdr Active Not available folic acid 1 tablet daily Active Not available folic acid 1 mg tablet TAKE ONE TABLET BY MOUTH @12PM Active Not avai lable gabapentin 800 mg tablet TAKE ONE TABLET BY MOUTH @8AM and TAKE ONE TABLET @12PM and TAKE ONE TABLET @8PM Active Not available GaviLyte-N 420 gram oral solution Active Not available glimepiride 1 mg tablet Completed 04/15/19 glimepiride 2 mg tablet TAKE ONE TABLET BY MOUTH @8AM and TAKE ONE TABLET @8PM Completed 04/15/2020 glimepiride 4 mg tablet Active Not avai amish global alcohol prep ease pads 70 %pads Active Not available hydrocodone 5 mg-acetaminophen 325 mg tablet Completed 08/14/2018 indapamide 2.5 mg tablet TAKE ONE TABLET @12PM Active Not available Januvia 100 mg tablet TAKE ONE TABLET BY MOUTH @8AM Active Not avail able levothyroxine 75 mcg tablet TAKE ONE TABLET BY MOUTH ONCE DAILY @8AM bottle Active Not available magnesium oxide 400 mg (241.3 mg magnesi um) tablet TAKE ONE TABLET BY MOUTH @8AM and TAKE ONE TABLET BY MOUTH @8PM Active Not available Medrol 2 mg tablet 1 tablet every other day Completed 02/14/2020 metformin 850 mg tablet TAKE ONE TABLET BY MOUTH @8AM and TAKE ONE TABLET @12PM Active Not available methylprednisolone 4 mg tablet 1 tab daily Completed 02/14/2020 methylprednisolone 8 mg tablet Completed 0 08/14/2018 metronidazole 500 mg tablet TAKE ONE TABLET BY MOUTH TWICE DAILY FOR ONE WEEK Active Not available nitrofurantoin macrocrystal 50 mg capsul e TAKE ONE CAPSULE BY MOUTH AT BEDTIME ONCE DAILY AFTER completing cipro Active Not available nitrofurantoin monohydrate/macrocrystals 100 mg capsule Active Not available nortriptyline 25 mg capsule Active Not available Nyamyc 100,000 unit/gram topical powder Active Not available nystatin 100,000 unit/mL oral suspension Active Not available ondansetron HCl 4 mg tablet Completed 08/05 OneTouch Ultra Blue Test Strip Active N ot available oxycodone 10 mg tablet Completed 9 oxycodone 5 mg tablet TAKE 1 TO 2 TABLETS BY MOUTH EVERY FOUR HOURS NEEDED FOR PAIN MAX DAILY DOSE 12 CAPSULES Completed 02/14/2020 oxycodone 5 mg/5 mL oral solution Completed 02/03/2018 oxycodone-acetaminophen 5 mg-325 mg tablet Completed 02/14/2020 pantoprazole 40 mg tablet,delayed releas e 1 tab twice daily Completed 08/14/2018 polyethylene glycol 3350 17 gram/dose oral powder Active Not available potassium chloride ER 10 mEq tablet,extended release Completed 08/14/2018 potassium chloride ER 20 mEq tablet,exte nded release(part/cryst) TAKE ONE TABLET BY MOUTH @8AM Active Not avail able prednisone 20 mg tablet TAKE ONE TABLET BY MOUTH ONCE DAILY FOR FIVE DAYS Completed 02/14/2020 ramelteon 8 mg tablet TAKE ONE TABLET BY MOUTH @8PM Active Not avail able rosuvastatin 40 mg tablet TAKE ONE TABLET BY MOUTH @8AM Active Not avail able senna 8.6 mg tablet TAKE TWO TABLETS BY MOUTH @8PM as needed daily Active Not available Stimulant Laxative Plus 8.6 mg-50 mg tablet Active Not available sulfamethoxazole 400 mg-trimethoprim 80 mg tablet Completed 02/03/2018 sulfamethoxazole 800 mg-trimethoprim 160 mg tablet Completed 02/03/2018 tamsulosin 0.4 mg capsule TAKE ONE CAPSULE BY MOUTH 30 MINUTES AFTER evening meal Active Not available tramadol 50 mg tablet TAKE ONE TABLET BY MOUTH EVERY 6 HOURS NEEDED FOR PAIN MAX DAILY DOSE FOUR TABLETS Completed 02/14/2020 trazodone 100 mg tablet Completed 02/04/20 18 Vitamin D2 1,250 mcg (50,000 unit) capsu le TAKE ONE CAPSULE BY MOUTH Every Other Tuesday @8AM Active Not available Xarelto 20 mg tablet Completed 02/03/2018 zolpidem 5 mg tablet Completed 02/03/2018 Notes: Some medications listed in Docume nts: #[id number], #[id number] could not be added to this patient's chart. Please review these documents and add these medications to the patient's chart manually as needed. 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 06/10/2014 Displacement of Lumbar Intervertebral Disc without Myelopath y Unknown 06/10/2014 History Prolapsed Lumbar Intervertebral Disc Active 06/10/2014 Degeneration of Lumbosacral Intervertebral Disc Unknown 06/10/2014 History Degeneration of Lumbar Intervertebral Disc Active 06/10 Post-laminectomy Syndrome Active 06/10/2014 Lumbosacral Radiculopathy Active 06/10/2014 Fibromyalgia Active 06/10/2014 Displacement of Cervical Intervertebral Disc Active 12/2016 Neck Pain Active 03/16/2016 Cervical Radiculopathy Active 03/16/2016 Cervico-occipital Neuralgia Active 03/16/2016 Muscle Pain Active 03/16/2016 Inflammation of Sacroiliac Joint Active 08/17/2017 Procedures Date Name Performed by 02/25/2020 MRI, Lumbar Spine, W/wo Contrast [facility] [address] [place] [address] (Work Place) 03/11/2020 XR, Lumbosacral Spine, 2 or 3 View [facility] [address] [place] [address] (Work Place) Notes: L5-S1 laminectomy [id number] Jon manriquez 05/20/2017 , hysterectomy at age 44, rectocele repair at age 44, deviated septum at age 47, cholecystectomy age 49, bladder mesh surgery in 2012, bladder revision repair in 2013, right foot reconstruction june 2016 05/20/2017 Results Lab Results Date Name Specimen Result Interpretation Description Value Range Status Address 03/26/2020 [facility] Pdf Report NOS No observation recorded. 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 [facility]: [address] [place] [address] Past Encounters 04/15/2020 Inflammation of Sacroiliac Joint; Cervico-occipital Neuralgia; Cervical Radiculopathy; Displacement of Cervical Intervertebral Disc without Myelopathy; Degeneration of Cervical Intervertebral Disc; Cervical Spondylosis without Myelopathy; Myofascial Pain; Lumbar Post-laminectomy Syndrome; Degeneration of Lumbar Intervertebral Disc; Displacement of Lumbar Intervertebral Disc without Myelopathy; Spondylosis without Myelopathy; Lumbosacral Spondylosis without Myelopathy; Lumbar Radiculopathy Mar Smith FACILITIES PLANT ENGINEER: [id number] [address], [place] [address], Ph. 03/31/2020 Lumbar Post-laminectomy Syndrome; Lumbar Radiculopathy; Degeneration of Lumbar Intervertebral Disc; Displacement of Lumbar Intervertebral Disc without Myelopathy; Inflammation of Sacroiliac Joint; Cervico-occipital Neuralgia; Cervical Radiculopathy; Displacement of Cervical Intervertebral Disc without Myelopathy; Degeneration of Cervical Intervertebral Disc; Cervical Spondylosis without Myelopathy; Myofascial Pain; Spondylosis without Myelopathy; Lumbosacral Spondylosis without Myelopathy Oleg Ling MD: [id number] [address], Ph. 03/26/2020 Pre-surgery Testing; Viral Screening Oleg Ling MD: [id number] [address], Ph. [phone] 03/18/2020 Inflammation of Sacroiliac Joint; Cervico-occipital Neuralgia; Cervical Radiculopathy; Displacement of Cervical Intervertebral Disc without Myelopathy; Degeneration of Cervical Intervertebral Disc; Cervical Spondylosis without Myelopathy; Myofascial Pain; Lumbar Post-laminectomy Syndrome; Degeneration of Lumbar Intervertebral Disc; Displacement of Lumbar Intervertebral Disc without Myelopathy; Spondylosis without Myelopathy; Lumbosacral Spondylosis without Myelopathy; Lumbar Radiculopathy Mar Smith FACILITIES PLANT ENGINEER: [id number] [address], Ph. 02/14/2020 Inflammation of Sacroiliac Joint; Cervico-occipital Neuralgia; Cervical Radiculopathy; Displacement of Cervical Intervertebral Disc without Myelopathy; Degeneration of Cervical Intervertebral Disc; Cervical Spondylosis without Myelopathy; Myofascial Pain; Lumbar Post-laminectomy Syndrome; Degeneration of Lumbar Intervertebral Disc; Displacement of Lumbar Intervertebral Disc without Myelopathy; Spondylosis without Myelopathy; Lumbosacral Spondylosis without Myelopathy; Lumbar Radiculopathy Mar Francisyue, FACILITIES PLANT ENGINEER: [id number] [address], [place] [address], Ph. 12/03/2019 Inflammation of Sacroiliac Joint; Cervico-occipital Neuralgia; Cervical Radiculopathy; Displacement of Cervical Intervertebral Disc without Myelopathy; Degeneration of Cervical Intervertebral Disc; Cervical Spondylosis without Myelopathy; Myofascial Pain; Lumbar Post-laminectomy Syndrome; Degeneration of Lumbar Intervertebral Disc; Displacement of Lumbar Intervertebral Disc without Myelopathy; Spondylosis without Myelopathy; Lumbosacral Spondylosis without Myelopathy; Lumbar Radiculopathy Oleg Ling MD: [id number] [address], [facility] [place] [address], Ph. 11/28/2019 Pre-surgery Testing; Viral Screening Oleg Ling MD: [id number] [address], Ph. [phone] 11/23/2019 Pre-surgery Testing; Viral Screening Oleg Ling MD: [id number] [address], [facility] [place] [address], Ph. [phone] 11/22/2019 Inflammation of Sacroiliac Joint; Cervico-occipital Neuralgia; Cervical Radiculopathy; Displacement of Cervical Intervertebral Disc without Myelopathy; Degeneration of Cervical Intervertebral Disc; Cervical Spondylosis without Myelopathy; Myofascial Pain; Lumbar Post-laminectomy Syndrome; Degeneration of Lumbar Intervertebral Disc; Displacement of Lumbar Intervertebral Disc without Myelopathy; Spondylosis without Myelopathy; Lumbosacral Spondylosis without Myelopathy; Lumbar Radiculopathy Mar Smith, FACILITIES PLANT ENGINEER: [id number] [address], [facility] [place] [address], Ph. 11/07/2019 Inflammation of Sacroiliac Joint; Cervico-occipital Neuralgia; Cervical Radiculopathy; Displacement of Cervical Intervertebral Disc without Myelopathy; Degeneration of Cervical Intervertebral Disc; Cervical Spondylosis without Myelopathy; Myofascial Pain; Lumbar Post-laminectomy Syndrome; Degeneration of Lumbar Intervertebral Disc; Displacement of Lumbar Intervertebral Disc without Myelopathy; Spondylosis without Myelopathy; Lumbosacral Spondylosis without Myelopathy; Lumbar Radiculopathy Oleg Ling MD: [id number] [address], Ph. 11/02/2019 Pre-surgery Testing; Viral Screening Oleg Ling MD: [id number] [address], Ph. [phone] 10/24/2019 Inflammation of Sacroiliac Joint; Cervico-occipital Neuralgia; Cervical Radiculopathy; Displacement of Cervical Intervertebral Disc without Myelopathy; Degeneration of Cervical Intervertebral Disc; Cervical Spondylosis without Myelopathy; Myofascial Pain; Lumbar Post-laminectomy Syndrome; Degeneration of Lumbar Intervertebral Disc; Displacement of Lumbar Intervertebral Disc without Myelopathy; Spondylosis without Myelopathy; Lumbosacral Spondylosis without Myelopathy; Lumbar Radiculopathy Mar Smith NP: [id number] [address], Ph. 01/01/2019 Inflammation of Sacroiliac Joint; Cervico-occipital Neuralgia; Cervical Radiculopathy; Displacement of Cervical Intervertebral Disc without Myelopathy; Degeneration of Cervical Intervertebral Disc; Cervical Spondylosis without Myelopathy; Myofascial Pain; Lumbar Post-laminectomy Syndrome; Degeneration of Lumbar Intervertebral Disc; Displacement of Lumbar Intervertebral Disc without Myelopathy; Spondylosis without Myelopathy; Lumbosacral Spondylosis without Myelopathy; Lumbar Radiculopathy Mar Smith NP: [id number] [address], Ph. 11/15/2018 Cervical Radiculopathy; Displacement of Cervical Intervertebral Disc without Myelopathy; Degeneration of Cervical Intervertebral Disc; Cervical Spondylosis without Myelopathy; Myofascial Pain; Lumbar Post-laminectomy Syndrome; Degeneration of Lumbar Intervertebral Disc; Displacement of Lumbar Intervertebral Disc without Myelopathy; Spondylosis without Myelopathy; Lumbosacral Spondylosis without Myelopathy; Lumbar Radiculopathy; Inflammation of Sacroiliac Joint; Cervico-occipital Neuralgia Oleg Ling MD: [id number] [address], [place] [address], Ph. 11/01/2018 Lumbar Post-laminectomy Syndrome; Lumbar Radiculopathy; Degeneration of Lumbar Intervertebral Disc; Displacement of Lumbar Intervertebral Disc without Myelopathy; Inflammation of Sacroiliac Joint; Cervico-occipital Neuralgia; Cervical Radiculopathy; Displacement of Cervical Intervertebral Disc without Myelopathy; Degeneration of Cervical Intervertebral Disc; Cervical Spondylosis without Myelopathy; Myofascial Pain; Spondylosis without Myelopathy; Lumbosacral Spondylosis without Myelopathy Oleg Ling MD: [id number] [address], Ph. 10/03/2018 Inflammation of Sacroiliac Joint; Cervico-occipital Neuralgia; Cervical Radiculopathy; Displacement of Cervical Intervertebral Disc without Myelopathy; Degeneration of Cervical Intervertebral Disc; Cervical Spondylosis without Myelopathy; Myofascial Pain; Lumbar Post-laminectomy Syndrome; Degeneration of Lumbar Intervertebral Disc; Displacement of Lumbar Intervertebral Disc without Myelopathy; Spondylosis without Myelopathy; Lumbosacral Spondylosis without Myelopathy; Lumbar Radiculopathy Mar Smith NP: [id number] [address], Ph. 09/01/2018 Cervical Spondylosis without Myelopathy; Degeneration of Cervical Intervertebral Disc; Displacement of Cervical Intervertebral Disc without Myelopathy; Inflammation of Sacroiliac Joint; Cervico-occipital Neuralgia; Cervical Radiculopathy; Myofascial Pain; Lumbar Post-laminectomy Syndrome; Degeneration of Lumbar Intervertebral Disc; Displacement of Lumbar Intervertebral Disc without Myelopathy; Spondylosis without Myelopathy; Lumbosacral Spondylosis without Myelopathy; Lumbar Radiculopathy Oleg Ling MD: [id number] [address], Ph. 08/31/2018 Inflammation of Sacroiliac Joint; Cervico-occipital Neuralgia; Cervical Radiculopathy; Displacement of Cervical Intervertebral Disc without Myelopathy; Degeneration of Cervical Intervertebral Disc; Cervical Spondylosis without Myelopathy; Myofascial Pain; Lumbar Post-laminectomy Syndrome; Degeneration of Lumbar Intervertebral Disc; Displacement of Lumbar Intervertebral Disc without Myelopathy; Spondylosis without Myelopathy; Lumbosacral Spondylosis without Myelopathy; Lumbar Radiculopathy Oleg Ling MD: [id number] [address], [place] [address], Ph. 08/14/2018 Neck Pain; Inflammation of Sacroiliac Joint; Cervico-occipital Neuralgia; Cervical Radiculopathy; Displacement of Cervical Intervertebral Disc without Myelopathy; Degeneration of Cervical Intervertebral Disc; Cervical Spondylosis without Myelopathy; Myofascial Pain; Lumbar Post-laminectomy Syndrome; Degeneration of Lumbar Intervertebral Disc; Displacement of Lumbar Intervertebral Disc without Myelopathy; Spondylosis without Myelopathy; Lumbosacral Spondylosis without Myelopathy; Lumbar Radiculopathy Mar Smith NP: [id number] [address], Ph. 02/03/2018 Inflammation of Sacroiliac Joint; Cervico-occipital Neuralgia; Cervical Radiculopathy; Displacement of Cervical Intervertebral Disc without Myelopathy; Degeneration of Cervical Intervertebral Disc; Cervical Spondylosis without Myelopathy; Myofascial Pain; Lumbar Post-laminectomy Syndrome; Degeneration of Lumbar Intervertebral Disc; Displacement of Lumbar Intervertebral Disc without Myelopathy; Spondylosis without Myelopathy; Lumbosacral Spondylosis without Myelopathy; Lumbar Radiculopathy Oleg Ling MD: [id number] [address], [place] [address], Ph. Social History Tobacco Smoking Status Never Smoker Vaccine List None recorded. Plan of Care Reminders Provider Appointments None recorded. Lab None recorded. Referral None recorded. Procedures None recorded. Surgeries None recorded. Imaging None recorded. Vitals 04/15/2020 01:15PM FOLLOW-UP Blood Pressure 134/85 mm[Hg] 10/24/2019 11:00AM Extended Follow Up Visit Blood Pressure 139/90 mm[Hg] 01/01/2019 01:30PM FOLLOW-UP Weight Blood Pressure 227 lbs 115/80 mm[Hg] 10/03/2018 04:00PM FOLLOW-UP Weight Blood Pressure 227 lbs 113/80 mm[Hg] 08/14/2018 10:45AM FOLLOW-UP Blood Pressure 111/79 mm[Hg] 12/16/2017 Blood Pressure 175/98 mm[Hg] 11/18/2017 Blood Pressure 100/71 mm[Hg] 09/20/2017 Blood Pressure 131/85 mm[Hg] 09/08/2017 Blood Pressure 141/95 mm[Hg] 08/17/2017 Weight BMI Blood Pressure 228 lbs 36.93 kg/m2 116/74 mm[Hg] 07/26/2017 Blood Pressure 131/87 mm[Hg] 06/23/2017 Weight BMI Blood Pressure 228 lbs 36.93 kg/m2 123/91 mm[Hg] 06/08/2017 Blood Pressure 115/70 mm[Hg] 05/20/2017 Weight BMI Blood Pressure 228 lbs 36.93 kg/m2 133/87 mm[Hg] 06/22/2016 Blood Pressure 117/78 mm[Hg] 05/13/2016 Blood Pressure 140/88 mm[Hg] 04/16/2016 Blood Pressure 126/84 mm[Hg] 03/16/2016 Blood Pressure 135/87 mm[Hg] 11/07/2015 Blood Pressure 126/84 mm[Hg] 10/15/2015 Blood Pressure 120/86 mm[Hg] 10/10/2015 Blood Pressure 110/77 mm[Hg] 06/10/2014 Height Weight BMI Blood Pressure 5 ft 6 in 236 lbs 38.23 kg/m2 107/76 mm[Hg]
--- OUTSIDE RECORDS SUMMARY | 2020-04-29 05:19 | CCD ---
Author Organization Unknown Address [address] [place] [address] Phone [phone] Care Team Providers Care Rail Signal Mechanic Name Role Phone IRLANDA LONGORIA MD 3 [phone] Allergies Code Code System Name Reaction Severity Status Onset Rosuvastatin Calcium Active 06/10/2014 Tequin Active 06/10/2014 31147 RxNorm Theophylline Active 06/11/19 15 Vioxx Active 06/10/2014 184406 RxNorm Zocor Active 06/10/2014 Sulfa (Sulfonamide Antibiotics) Chest Pain Moderate Active Notes: Some allergies listed in Document s: #[id number], #[id number] could not be added to this patient's [...] tablet TAKE ONE TABLET BY MOUTH EVERY MORNING and TAKE ONE TABLET BY MOUTH @12PM and TAKE TWO TABLETS BY MOUTH AT BEDTIME NEEDED Active Not available Breo Ellipta 200 mcg-25 mcg/dose powder for inhalation INHALE ONE PUFF BY MOUTH DAILY Active Not avai lable cefdinir 300 mg capsule Completed 02/14/20 cefuroxime axetil 500 mg tablet Completed 02/03/2018 celecoxib 200 mg capsule TAKE ONE CAPSULE BY MOUTH @12PM Active Not geraldine ilable ciprofloxacin 250 mg tablet TAKE ONE TABLET BY MOUTH TWICE DAILY FOR 3 DAYS Completed 02/14/2020 ciprofloxacin 500 mg tablet Completed 01/07 Citrate of Magnesia oral 1 tablet daily [...] Active Not available glimepiride 1 mg tablet Active Not avai lable glimepiride 2 mg tablet TAKE ONE TABLET BY MOUTH @8AM and TAKE ONE TABLET @8PM Active Not available glimepiride 4 mg tablet Active Not avai lable global alcohol prep ease pads 70 %pads Active Not available hydrocodone 5 mg-acetaminophen 325 mg tablet Completed 08/14/2018 indapamide 2.5 mg tablet TAKE ONE TABLET @12PM Active Not available Januvia 100 mg tablet TAKE ONE TABLET BY MOUTH @8AM Active Not avail able levothyroxine 75 mcg tablet TAKE ONE TABLET BY MOUTH @8AM BOTTLE Active No t available magnesium oxide 400 mg (241.3 mg [...] FOR ONE WEEK Active Not available nitrofurantoin monohydrate/macrocrystals 100 mg [...] tablet TAKE TWO TABLETS BY MOUTH @8PM Active Not avai lable Stimulant Laxative Plus 8.6 mg-50 mg tablet Active Not available sulfamethoxazole 400 mg-trimethoprim 80 mg tablet Completed 02/03/2018 sulfamethoxazole 800 mg-trimethoprim 160 mg tablet Completed 02/03/2018 tamsulosin 0.4 mg capsule TAKE ONE CAPSULE BY MOUTH 30 MINUTES AFTER EVENING MEAL Active Not available tramadol 50 mg tablet [...] Notes: Some medications listed in Docume nts: #[id number], #[id number] could not be added to this patient's [...] by 02/25/2020 MRI, Lumbar Spine, W/wo Contrast [facility] [address] [place] [address] (Work Place) 03/11/2020 XR, Lumbosacral Spine, 2 or 3 View [facility] [address] [place] [address] (Work Place) Notes: L5-S1 laminectomy [id number] Jon manriquez 05/20/2017 , hysterectomy at age 44, rectocele repair at age 44, deviated septum at age 47, cholecystectomy age 49, bladder mesh surgery in 2012, bladder revision repair in 2013, right foot reconstruction june 2016 05/20/2017 Results Lab Results Date Name Specimen Result Interpretation Description Value Range Status Address 11/28/2019 COVID-19 RNA (SARS-CoV-2), QL, weather forecaster-PCR, Respiratory Specim en No observation recorded. Offerum: [address] [place] [address] 11/23/2019 COVID-19 RNA (SARS-CoV-2), QL, weather forecaster-PCR, Respiratory Specim en No observation recorded. Offerum: [address] [place] [address] 11/02/2019 COVID-19 RNA (SARS-CoV-2), QL, weather forecaster-PCR, Respiratory Specim en No observation recorded. Offerum: [address] [place] [address] Past Encounters 03/26/2020 Pre-surgery Testing; Viral Screening Oleg Ling MD: [id number] [address] [facility] [address], [place] [address], Ph. [phone] 03/18/2020 Inflammation of Sacroiliac Joint; Cervico-occipital Neuralgia; Cervical Radiculopathy; Displacement of Cervical Intervertebral Disc without Myelopathy; Degeneration of Cervical Intervertebral Disc; Cervical Spondylosis without Myelopathy; Myofascial Pain; Lumbar Post-laminectomy Syndrome; Degeneration of Lumbar Intervertebral Disc; Displacement of Lumbar Intervertebral Disc without Myelopathy; Spondylosis without Myelopathy; Lumbosacral Spondylosis without Myelopathy; Lumbar Radiculopathy Mar Smith NP: [address], [place] [address], Ph. 02/14/2020 Inflammation of Sacroiliac Joint; Cervico-occipital Neuralgia; Cervical Radiculopathy; Displacement of Cervical Intervertebral Disc without Myelopathy; Degeneration of Cervical Intervertebral Disc; Cervical Spondylosis without Myelopathy; Myofascial Pain; Lumbar Post-laminectomy Syndrome; Degeneration of Lumbar Intervertebral Disc; Displacement of Lumbar Intervertebral Disc without Myelopathy; Spondylosis without Myelopathy; Lumbosacral Spondylosis without Myelopathy; Lumbar Radiculopathy Mar Smith NP: [id number] [address], [place] [address], Ph. 12/03/2019 Inflammation of Sacroiliac Joint; Cervico-occipital Neuralgia; Cervical Radiculopathy; Displacement of Cervical Intervertebral Disc without Myelopathy; Degeneration of Cervical Intervertebral Disc; Cervical Spondylosis without Myelopathy; Myofascial Pain; Lumbar Post-laminectomy Syndrome; Degeneration of Lumbar Intervertebral Disc; Displacement of Lumbar Intervertebral Disc without Myelopathy; Spondylosis without Myelopathy; Lumbosacral Spondylosis without Myelopathy; Lumbar Radiculopathy Oleg Ling MD: [id number] [address], Ph. 11/28/2019 Pre-surgery Testing; Viral Screening Oleg Ling MD: [id number] [address], Ph. [phone] 11/23/2019 Pre-surgery Testing; Viral Screening Oleg Ling MD: [id number] [address], Ph. [phone] 11/22/2019 Inflammation of Sacroiliac Joint; Cervico-occipital Neuralgia; Cervical Radiculopathy; Displacement of Cervical Intervertebral Disc without Myelopathy; Degeneration of Cervical Intervertebral Disc; Cervical Spondylosis without Myelopathy; Myofascial Pain; Lumbar Post-laminectomy Syndrome; Degeneration of Lumbar Intervertebral Disc; Displacement of Lumbar Intervertebral Disc without Myelopathy; Spondylosis without Myelopathy; Lumbosacral Spondylosis without Myelopathy; Lumbar Radiculopathy Mar Smith NP: [id number] [address], [place] [address], Ph. 11/07/2019 Inflammation of Sacroiliac Joint; Cervico-occipital Neuralgia; Cervical Radiculopathy; Displacement of Cervical Intervertebral Disc without Myelopathy; Degeneration of Cervical Intervertebral Disc; Cervical Spondylosis without Myelopathy; Myofascial Pain; Lumbar Post-laminectomy Syndrome; Degeneration of Lumbar Intervertebral Disc; Displacement of Lumbar Intervertebral Disc without Myelopathy; Spondylosis without Myelopathy; Lumbosacral Spondylosis without Myelopathy; Lumbar Radiculopathy Oleg Ling MD: [id number] [address], Ph. 11/02/2019 Pre-surgery Testing; Viral Screening Olge Ling MD: [id number] [address], Ph. [phone] 10/24/2019 Inflammation of Sacroiliac Joint; Cervico-occipital Neuralgia; Cervical Radiculopathy; Displacement of Cervical Intervertebral Disc without Myelopathy; Degeneration of Cervical Intervertebral Disc; Cervical Spondylosis without Myelopathy; Myofascial Pain; Lumbar Post-laminectomy Syndrome; Degeneration of Lumbar Intervertebral Disc; Displacement of Lumbar Intervertebral Disc without Myelopathy; Spondylosis without Myelopathy; Lumbosacral Spondylosis without Myelopathy; Lumbar Radiculopathy Mar Smith AVIATION PROJECT ENGINEER: [id number] [address], Ph. 01/01/2019 Inflammation of Sacroiliac Joint; Cervico-occipital Neuralgia; Cervical Radiculopathy; Displacement of Cervical Intervertebral Disc without Myelopathy; Degeneration of Cervical Intervertebral Disc; Cervical Spondylosis without Myelopathy; Myofascial Pain; Lumbar Post-laminectomy Syndrome; Degeneration of Lumbar Intervertebral Disc; Displacement of Lumbar Intervertebral Disc without Myelopathy; Spondylosis without Myelopathy; Lumbosacral Spondylosis without Myelopathy; Lumbar Radiculopathy Mar Smith AVIATION PROJECT ENGINEER: [id number] [address], Ph. 11/15/2018 Cervical Radiculopathy; Displacement of Cervical Intervertebral Disc without Myelopathy; Degeneration of Cervical Intervertebral Disc; Cervical Spondylosis without Myelopathy; Myofascial Pain; Lumbar Post-laminectomy Syndrome; Degeneration of Lumbar Intervertebral Disc; Displacement of Lumbar Intervertebral Disc without Myelopathy; Spondylosis without Myelopathy; Lumbosacral Spondylosis without Myelopathy; Lumbar Radiculopathy; Inflammation of Sacroiliac Joint; Cervico-occipital Neuralgia Oleg Ling MD: [id number] [address], [place] [address], Ph. 11/01/2018 Lumbar Post-laminectomy Syndrome; Lumbar Radiculopathy; Degeneration of Lumbar Intervertebral Disc; Displacement of Lumbar Intervertebral Disc without Myelopathy; Inflammation of Sacroiliac Joint; Cervico-occipital Neuralgia; Cervical Radiculopathy; Displacement of Cervical Intervertebral Disc without Myelopathy; Degeneration of Cervical Intervertebral Disc; Cervical Spondylosis without Myelopathy; Myofascial Pain; Spondylosis without Myelopathy; Lumbosacral Spondylosis without Myelopathy Oleg Ling MD: [id number] [address], [place] [address], Ph. 10/03/2018 Inflammation of Sacroiliac Joint; Cervico-occipital Neuralgia; Cervical Radiculopathy; Displacement of Cervical Intervertebral Disc without Myelopathy; Degeneration of Cervical Intervertebral Disc; Cervical Spondylosis without Myelopathy; Myofascial Pain; Lumbar Post-laminectomy Syndrome; Degeneration of Lumbar Intervertebral Disc; Displacement of Lumbar Intervertebral Disc without Myelopathy; Spondylosis without Myelopathy; Lumbosacral Spondylosis without Myelopathy; Lumbar Radiculopathy Mar Smith NP: [id number] [facility] [address], [place] [address], Ph. 09/01/2018 Cervical Spondylosis without Myelopathy; Degeneration of Cervical Intervertebral Disc; Displacement of Cervical Intervertebral Disc without Myelopathy; Inflammation of Sacroiliac Joint; Cervico-occipital Neuralgia; Cervical Radiculopathy; Myofascial Pain; Lumbar Post-laminectomy Syndrome; Degeneration of Lumbar Intervertebral Disc; Displacement of Lumbar Intervertebral Disc without Myelopathy; Spondylosis without Myelopathy; Lumbosacral Spondylosis without Myelopathy; Lumbar Radiculopathy Oleg Ling MD: [id number] [address], Ph. 08/31/2018 Inflammation of Sacroiliac Joint; Cervico-occipital Neuralgia; Cervical Radiculopathy; Displacement of Cervical Intervertebral Disc without Myelopathy; Degeneration of Cervical Intervertebral Disc; Cervical Spondylosis without Myelopathy; Myofascial Pain; Lumbar Post-laminectomy Syndrome; Degeneration of Lumbar Intervertebral Disc; Displacement of Lumbar Intervertebral Disc without Myelopathy; Spondylosis without Myelopathy; Lumbosacral Spondylosis without Myelopathy; Lumbar Radiculopathy Oleg Ling MD: [id number] [address], Ph. 08/14/2018 Neck Pain; Inflammation of Sacroiliac Joint; Cervico-occipital Neuralgia; Cervical Radiculopathy; Displacement of Cervical Intervertebral Disc without Myelopathy; Degeneration of Cervical Intervertebral Disc; Cervical Spondylosis without Myelopathy; Myofascial Pain; Lumbar Post-laminectomy Syndrome; Degeneration of Lumbar Intervertebral Disc; Displacement of Lumbar Intervertebral Disc without Myelopathy; Spondylosis without Myelopathy; Lumbosacral Spondylosis without Myelopathy; Lumbar Radiculopathy Mar Smith NP: [id number] [address], Ph. 02/03/2018 Inflammation of Sacroiliac Joint; Cervico-occipital Neuralgia; Cervical Radiculopathy; Displacement of Cervical Intervertebral Disc without Myelopathy; Degeneration of Cervical Intervertebral Disc; Cervical Spondylosis without Myelopathy; Myofascial Pain; Lumbar Post-laminectomy Syndrome; Degeneration of Lumbar Intervertebral Disc; Displacement of Lumbar Intervertebral Disc without Myelopathy; Spondylosis without Myelopathy; Lumbosacral Spondylosis without Myelopathy; Lumbar Radiculopathy Oleg Ling MD: [id number] [address], [place] [address], Ph. Social History Tobacco Smoking Status Never Smoker Vaccine List None recorded. Plan of Care Reminders Provider Appointments None recorded. Lab None recorded. Referral None recorded. Procedures None recorded. Surgeries None recorded. Imaging None recorded. Vitals 10/24/2019 11:00AM Extended Follow Up Visit Blood [...]
--- OUTSIDE RECORDS SUMMARY | 2020-04-29 05:19 | CCD | Continuity of Care Document ---
Author Author Trini ROJO PA-C Organization Unknown Address [address] [place] [address] Phone [phone] Care Team Providers Care Tenon Machine Operator Name Role Phone Kimani Ann MD AUT [phone] Problems Active Problems Provider Date Plantar fascial fibromatosis Onset: 12/06 Social History Type Date Description Comments Sex Unknown ETOH Use Never used alcohol ETOH Use Denies alcohol use Tobacco Use Start: Unknown Patient has never smoked Tobacco Use Start: Unknown Denies Smoking Allergies, Adverse Reactions, Alerts Active Allergies Reaction Severity Comments Date Crestor 03/12/2015 Ferrous Sulfate 03/12/2015 TeQuin 03/12/2015 Gonzalo-dur 03/12/2015 Medications Active Medications SIG Qnty Indications Ordering Provide r Date Ambien 10mg Tablets i @hs as needed sleep Unknown Januvia 100mg Tablets take one tablet by mouth every day maximum daily dose = one tablet Unknown Voltaren 1% Gel apply to affected area three times a day Unknown Nexium 20mg Capsules DR Unknown Nystatin Powder Unknown Colace 100mg Capsules 1 by mouth twice a day, hold for diarrhea Unknown 0 Levalbuterol HCL 0.31mg/3ML Nebulizer Unknown Aspirin 81mg Tablets DR Unknown Ferrous Sulfate 325(65Fe) mg Tablets Unknown Breo Ellipta 200-25mcg/Inh Aerosol Unknown Nortriptyline HCL 25mg Capsules 3 by mouth every night at bedtime Unknown 0 Methylprednisolone Tablets Unknown Rozerem 8mg Tablets Unknown Proventil HFA 108(90Base) mcg/Act Aerosol Unknown Pulmicort 0.5mg/2ML Suspension Unknown Lexapro 10mg Tablets 1 by mouth every day Unknown Ergocalciferol 37019Nkwk Capsules 1 by mouth once a week for 12 weeks. take with dinner Unknown Metformin HCL 850mg Tablets take one tablet by mouth three times a day maximum daily dose = 3 tablets Unknown Indapamide 2.5mg Tablets Unknown Potassium Chloride 20Meq/50ML Solution Unknown Celebrex 200mg Capsules 1 by mouth twice a day x 10 days after surgery Unknown Gabapentin 800mg Tablets 1 by mouth three times a day Unknown Lipitor 40mg Tablets take one tablet by mouth twice a day Unknown Levothyroxine Sodium 75mcg Tablets 1 by mouth every day Unknown Folic Acid 1mg Tablets 1 by mouth every day Unknown Cymbalta 60mg Caps DR Part 1 by mouth 2 x every day Unknown Hydrocodone 7.5mg Liquid 6 Times Per Day Unknown Immunizations Description No Information Available Vital Signs Date Vital Result Comment 11/18/2015 11:50am Body Temperature 98.1 F Height 65 inches 5'5" Weight 231.00 lb BMI (Body Mass Index) 38.4 kg/m2 10/20/2015 11:01am Body Temperature 97.6 F Height 65.25 inches 5'5.25" Weight 227.00 lb BMI (Body Mass Index) 37.5 kg/m2 Results Description No Information Available Procedures Date Code Description Status 03/27/2020 Inject/Drain Joint/Bursa Major C ompleted 10/17/2019 02858 X-Ray Knee Ap & Lateral W/Obliqu es Three Views Completed 10/17/2019 Inject/Drain Joint/Bursa Major C ompleted Medical Devices Description No Information Available Encounters Type Date Location Provider Dx Diagnosis Office Visit 03/27/2020 1:45p Angie Rojo PA-C M1 7.0 Bilateral primary osteoarthritis of knee Office Visit 10/17/2019 10:45a Angie Rojo PA-C M1 7.0 Bilateral primary osteoarthritis of knee Assessments Date Code Description Provider 03/27/2020 M17.0 Bilateral primary osteoarthritis of knee Bren Rojo PA-C 10/17/2019 M17.0 Bilateral primary osteoarthritis of knee Bren Rojo PA-C Plan of Treatment 03/27/2020 - Bren Rojo PA-C* M17.0 Bilateral primary osteoarthritis of knee* Follow up:* with [facility] for knee surg eval per [facility] Functional Status Description No Information Available Mental Status Description No Information Available Referrals Description No Information Available
--- OUTSIDE RECORDS SUMMARY | 2020-04-29 05:19 | CCD | Continuity of Care Document ---
Author Author Trini MAR MD Organization Unknown Address [address] [place] [address] Phone [phone] Care Team Providers Care Sloop Captain Name Role Phone Kimani Ann M.D. AUTM [phone] Andrea Wadsworth D.O. AUTM [phone] Oleg Ling M.D. AUTM [phone] Problems Active Problems Provider Date Diabetes mellitus [...] SIG Qnty Indications Ordering Provide r Date Metronidazole 500mg Tablets 1 tab by mouth twice a day x 1 week 14tabs Monica Mar MD 11/2019 Tamsulosin HCL 0.4mg Capsules Take One Capsule By Mouth 30 Minutes After Evening Meal 30caps E mauricio Mar MD 01/10/2020 Estrace 0.1mg/GM Cream 1/4 [...] by mouth every day 30{caps Unknown Ergocalciferol 23589Bwgy Capsules 1 po every other week 8caps [...] 1 by mouth every day Unknown Nystatin 585130Yalm/GM Cream apply topically to affected areas twice a day 30gm Unknown Magnesium Oxide 400mg Tablets 2 by mouth twice a day Unknown Levothyroxine Sodium 75mcg Tablets 1 by mouth every day Unknown Colace 100mg Capsules 2 by mouth twice a day prn Unknown History Medications Macrobid 100mg Capsules 1 capsule by mouth twice a day x 10 days 20caps Monica Mar MD - 01/14/2020 Ciprofloxacin HCL 250mg Tablets 1 by mouth twice a day x 3 days 6tabs Monica Mar MD 10/2019 - 01/10/2020 Ciprofloxacin HCL 250mg Tablets 1 by mouth twice a day x 3 days 6tabs N39.41 Monica Mar MD - 12/13/2019 Alprazolam 1mg Tablets 1 by mouth 1-2 hours before procedure; istop# [id number] 1tabs N31.0 Hayley Mar MD 10/11/2019 - [...] Trace Ua Clarity Not Entered Ua Specific [place] 1.025 1.003-1.030 Ua PH 5.0 5.0-7.5 Ua Bilirubin Small Ua Urobilinogen 0.2 E.U./dL 0.0-1.0 Laboratory test finding 04/07/[address] [address] [phone] Urine Culture <pending> 230 Ua Routine 04/07/2020 [facility] REF TO DR ADDRESS ON ORDER FOR (315)- - Ua Glucose Negative Ua Protein Negative Ua Nitrite Positive Ua Leuko Trace Ua Blood Negative Ua Color Not Entered Ua Ketones Trace Ua Clarity Not Entered Ua Specific [place] >=1.030 1.003-1.030 Ua PH 5.0 5.0-7.5 Ua Bilirubin Small Ua Urobilinogen 0.2 E.U./dL 0.0-1.0 Vaginosis(BV) Test 01/10/[address] [address] [phone] Linda By Dna Probe NEGATIVE Negative Gardnerella By Dna Probe POSITIVE Abnormal Negative Trichomonas By Dna Probe NEGATIVE Negative 1 Laboratory test finding 01/10/[address] [address] [phone] Urine Culture <SEE NOTE> 2 230 Ua Routine 01/10/2020 [facility] REF TO DR ADDRESS ON ORDER FOR (315)- - Ua Glucose Negative Ua Protein Negative Ua Nitrite Positive Ua Leuko Trace Ua Blood Negative Ua Color Not Entered Ua Ketones 15 mg/dL Ua Clarity Not Entered Ua Specific [place] 1.020 1.003-1.030 Ua PH 6.5 5.0-7.5 Ua Bilirubin Negative Ua Urobilinogen 0.2 E.U./dL 0.0-1.0 230 Ua Routine 01/10/2020 [facility] REF TO DR ADDRESS ON ORDER FOR (315)- - Ua Glucose Negative Ua Protein Negative Ua Nitrite Positive Ua Leuko Small Ua Blood Trace-intact Ua Color Not Entered Ua Ketones 15 mg/dL Ua Clarity Not Entered Ua Specific [place] 1.025 1.003-1.030 Ua PH 6.0 5.0-7.5 Ua Bilirubin Negative Ua Urobilinogen 0.2 E.U./dL 0.0-1.0 Laboratory test finding 12/11/[address] [address] [phone] Urine Culture <SEE NOTE> 3 230 Ua Routine 11/27/2019 [facility] REF TO DR ADDRESS ON ORDER FOR (315)- - Ua Glucose Negative Ua Protein Negative Ua Nitrite Negative Ua Leuko Negative Ua Blood Negative Ua Color Not Entered Ua Ketones Negative Ua Clarity Not Entered Ua Specific [place] >=1.030 1.003-1.030 Ua PH 5.5 5.0-7.5 Ua Bilirubin Negative Ua Urobilinogen 0.2 E.U./dL 0.0-1.0 Laboratory test finding 10/11/[address] [id number] [phone] Urine Culture <SEE NOTE> 4 230 Ua Routine 10/11/2019 [facility] REF TO DR ADDRESS ON ORDER FOR (179)- - Ua Glucose Negative Ua Protein 30 mg/dL Ua Nitrite Negative Ua Leuko Negative Ua Blood Negative Ua Color Not Entered Ua Ketones 15 mg/dL Ua Clarity Not Entered Ua Specific [place] >=1.030 1.003-1.030 Ua PH 5.0 5.0-7.5 Ua Bilirubin Moderate Ua Urobilinogen 0.2 E.U./dL 0.0-1.0 1 TESTING PERFORMED BY NUCLEIC ACID HYBRIDIZATION 2 Run: 01/12/20 1121 INTERFACED REPORT Name: Trini Jiang Age/Sex: 64/F Location: [facility] Acct: [id number] Unit: [id number] Status: REG REF Room/Bed: Re01/10/20 Disch: Att Dr: Amira Garg Specimen #: [id number] Ordered : 01/10/2007/24/1930 Collected : 01/10/2007/24/1401 By: OFFICE Received: 01/10/2007/24/1930 By: EVERARDO Source: URINE CATH Specimen Description: Procedure Result COLONY COUNT Final COLONY COUNT LESS THAN 1,000 CFU/ML URINE CULTURE Final NO GROWTH NO GROWTH <18 HOURS NO SIGNIFICANT GROWTH 42 HOURS URINE CULTURE Preliminary (Corrected) NO GROWTH NO GROWTH <18 HOURS END OF REPORT 3 Run: 12/13/19 1243 INTERFACED REPORT Name: Trini Jiang Age/Sex: 64/F Location: [facility] Acct: [id number] Unit: [id number] Status: REG REF Room/Bed: Re12/11/19 Disch: Att Dr: Monica Mar MD Specimen #: [id number] Ordered : 12/11/1908/24/2102 Collected : 12/11/1908/25/1547 By: OFFICE Received: 12/11/1908/24/2102 By: GMACDOUGAL Source: URINE CATH Specimen Description: [...] NHS POSSIBLE ENTEROCOCCI MANY END OF REPORT 4 Run: 10/13/19 0828 INTERFACED REPORT Name: Trini Jiang Age/Sex: 64/F Location: [facility] Acct: [id number] Unit: [id number] Status: REG REF Room/Bed: Re10/11/19 Disch: Junior Dr: Amira Garg Specimen #: [id number] Ordered : 10/11/1908/24/1720 Collected : 10/11/1908/24/1124 By: OFFICE Received: 10/11/1908/24/1720 By: EVERARDO Source: URINE CATH Specimen Description: Procedure Result COLONY COUNT Final COLONY COUNT LESS THAN 1,000 CFU/ML URINE CULTURE Final NO GROWTH NO GROWTH <18 HOURS NO GROWTH 42 HOURS URINE CULTURE Preliminary (Corrected) NO GROWTH NO GROWTH <18 HOURS END OF REPORT Procedures Date Code Description Status 01/10/2020 29084 Insertion,Of Non Ind welling Bladder Catheter Eg Straight Catheter Completed 12/11/2019 06818 Cystourethroscopy, Separate Proc edure Completed 12/11/2019 19693 Bladder Irrigation, Simple Lavag e And/Or Instillation Completed 11/27/2019 06011 Cystourethroscopy,/W Injects For Chemodenervation Of The Bladder Completed 11/27/2019 03851 Cystourethroscopy, W/Fulguration Inc Cryosurgery Or Laser Surg Completed 10/11/2019 54310 Insertion,Of Non Ind welling Bladder Catheter Eg Straight Catheter Completed Medical Devices Description No Information Available Encounters Type Date Location Provider Dx Diagnosis Office Visit 01/10/2020 1:30p [facility] Amira Forest, P A N32.81 Overactive bladder N39.41 Urge incontinence R31.0 Gross hematuria N95.2 Postmenopausal atrophic vagi nitis N76.0 Acute vaginitis R33.8 Other retention of urine Z87.440 Personal history of urinary (tract) infections Office Visit 10/11/2019 11:00a [facility]/ 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 Functional Status Description No Information Available Mental Status Description No Information Available Referrals Refer to Dr Reason for Referral Status Appt Date Monica Mar MD Botox c/d [facility] [place] s/w Natviidad ref# [id number]- ok to buy and bill, auth required. c/d [facility] on 03/31/20 s/w kelly ref# [id number] auth required and ok to buy and bill .si Created [address] [place] [address] [phone]
--- OUTSIDE RECORDS SUMMARY | 2020-04-29 05:19 | CCD | Continuity of Care Document ---
Author Author Trini MAR MD Organization Unknown Address [address] [place] [address] Phone [phone] Care Team Providers Care Manager Furniture Name Role Phone Kimani Ann M.D. AUTM [phone] Andrea Wadsworth D.O. AUTM [phone] Oleg Ling M.D. AUTM [phone] Problems Active Problems Provider Date Diabetes mellitus [...] by mouth every day 30{caps Unknown Ergocalciferol 64036Cgeb Capsules 1 po every other week 8caps [...] 1 by mouth every day Unknown Nystatin 670605Occk/GM Cream apply topically to affected areas twice [...] by mouth 1-2 hours before procedure; istop# [id number] 1tabs N31.0 Hayley Mar MD 10/11/2019 - [...] Trace Ua Clarity Not Entered Ua Specific [place] 1.025 1.003-1.030 Ua PH 5.0 5.0-7.5 Ua Bilirubin Small Ua Urobilinogen 0.2 E.U./dL 0.0-1.0 Laboratory test finding 04/07/[address] [address] [phone] Urine Culture <SEE NOTE> 1 230 Ua Routine 04/07/2020 [facility] REF TO DR ADDRESS ON ORDER FOR (315)- - Ua Glucose Negative Ua Protein Negative Ua Nitrite Positive Ua Leuko Trace Ua Blood Negative Ua Color Not Entered Ua Ketones Trace Ua Clarity Not Entered Ua Specific [place] >=1.030 1.003-1.030 Ua PH 5.0 5.0-7.5 Ua Bilirubin Small Ua Urobilinogen 0.2 E.U./dL 0.0-1.0 Vaginosis(BV) Test 01/10/[address] [address] [phone] Linda By Dna Probe NEGATIVE Negative Gardnerella By Dna Probe POSITIVE Abnormal Negative Trichomonas By Dna Probe NEGATIVE Negative 2 Laboratory test finding 01/10/[address] [address] [phone] Urine Culture <SEE NOTE> 3 230 Ua Routine 01/10/2020 [facility] REF TO DR ADDRESS ON ORDER FOR (315)- - Ua Glucose Negative Ua Protein Negative Ua Nitrite Positive Ua Leuko Trace Ua Blood Negative Ua Color Not Entered Ua Ketones 15 mg/dL Ua Clarity Not Entered Ua Specific [place] 1.020 1.003-1.030 Ua PH 6.5 5.0-7.5 Ua Bilirubin Negative Ua Urobilinogen 0.2 E.U./dL 0.0-1.0 230 Ua Routine 01/10/2020 [facility] REF TO DR ADDRESS ON ORDER FOR (315)- - Ua Glucose Negative Ua Protein Negative Ua Nitrite Positive Ua Leuko Small Ua Blood Trace-intact Ua Color Not Entered Ua Ketones 15 mg/dL Ua Clarity Not Entered Ua Specific [place] 1.025 1.003-1.030 Ua PH 6.0 5.0-7.5 Ua Bilirubin Negative Ua Urobilinogen 0.2 E.U./dL 0.0-1.0 Laboratory test finding 12/11/[address] [address] [phone] Urine Culture <SEE NOTE> 4 230 Ua Routine 11/27/2019 [facility] REF TO DR ADDRESS ON ORDER FOR (315)- - Ua Glucose Negative Ua Protein Negative Ua Nitrite Negative Ua Leuko Negative Ua Blood Negative Ua Color Not Entered Ua Ketones Negative Ua Clarity Not Entered Ua Specific [place] >=1.030 1.003-1.030 Ua PH 5.5 5.0-7.5 Ua Bilirubin Negative Ua Urobilinogen 0.2 E.U./dL 0.0-1.0 Laboratory test finding 10/11/[address] [address] [phone] Urine Culture <SEE NOTE> 5 230 Ua Routine 10/11/2019 [facility] REF TO DR ADDRESS ON ORDER FOR (615)- - Ua Glucose Negative Ua Protein 30 mg/dL Ua Nitrite Negative Ua Leuko Negative Ua Blood Negative Ua Color Not Entered Ua Ketones 15 mg/dL Ua Clarity Not Entered Ua Specific [place] >=1.030 1.003-1.030 Ua PH 5.0 5.0-7.5 Ua Bilirubin Moderate Ua Urobilinogen 0.2 E.U./dL 0.0-1.0 1 Run: 04/08/20 0913 INTERFACED REPORT Name: Trini Jiang Age/Sex: 64/F Location: [facility] Acct: [id number] Unit: [id number] Status: REG REF Room/Bed: Re04/07/20 Disch: Att Dr: Monica Mar MD Specimen #: [id number] Ordered : 04/07/2003/27/1856 Collected : 04/07/2003/27/1329 By: OFFICE Received: 04/07/2003/27/1856 By: CYNTHIA Source: URINE CATH Specimen Description: Procedure Result COLONY COUNT Final COLONY COUNT GREATER THAN 100,000 CFU/ML URINE CULTURE Preliminary COLIFORMS MANY END OF REPORT 2 TESTING PERFORMED BY NUCLEIC ACID HYBRIDIZATION 3 Run: 01/12/20 1121 INTERFACED REPORT Name: Trini Jiang Age/Sex: 64/F Location: [facility] Acct: [id number] Unit: [id number] Status: REG REF Room/Bed: Re01/10/20 Disch: Junior Dr: Amira Garg Specimen #: [id number] Ordered : 01/10/2007/24/1930 Collected : 01/10/2007/24/1401 By: OFFICE Received: 01/10/2007/24/1930 By: GMACDOUGAL Source: URINE CATH Specimen Description: Procedure Result COLONY COUNT Final COLONY COUNT LESS THAN 1,000 CFU/ML URINE CULTURE Final NO GROWTH NO GROWTH <18 HOURS NO SIGNIFICANT GROWTH 42 HOURS URINE CULTURE Preliminary (Corrected) NO GROWTH NO GROWTH <18 HOURS END OF REPORT 4 Run: 12/13/19 1243 INTERFACED REPORT Name: ApolinarTrini Sparks Age/Sex: 64/F Location: [facility] Acct: [id number] Unit: [id number] Status: REG REF Room/Bed: Re12/11/19 Disch: Junior Dr: Monica Mar MD Specimen #: [id number] Ordered : 12/11/1908/24/2102 Collected : 12/11/1908/25/1547 By: [...] REPORT Name: Trini Jiang Age/Sex: 64/F Location: [facility] Acct: [id number] Unit: [id number] Status: REG REF Room/Bed: Re10/11/19 Disch: Junior Dr: Amira Garg PA Specimen #: [id number] Ordered : 10/11/1908/24/1720 Collected : 10/11/1908/24/1124 By: OFFICE Received: 10/11/1908/24/1720 By: EVERARDO Source: URINE CATH Specimen Description: Procedure Result COLONY COUNT Final COLONY COUNT LESS THAN 1,000 CFU/ML URINE CULTURE Final NO GROWTH NO GROWTH <18 HOURS NO GROWTH 42 HOURS URINE CULTURE Preliminary (Corrected) NO GROWTH NO GROWTH <18 HOURS END OF REPORT Procedures Date Code Description Status 04/07/2020 10765 Insertion,Of Non Ind welling Bladder Catheter Eg Straight Catheter Completed 01/10/2020 95025 Insertion,Of Non Ind welling Bladder Catheter Eg Straight Catheter Completed 12/11/2019 09377 Cystourethroscopy, Separate Proc edure Completed 12/11/2019 63859 Bladder Irrigation, Simple Lavag e And/Or Instillation Completed 11/27/2019 96656 Cystourethroscopy,/W Injects For Chemodenervation Of The Bladder Completed 11/27/2019 05935 Cystourethroscopy, W/Fulguration Inc Cryosurgery Or Laser Surg Completed 10/11/2019 25343 Insertion,Of Non Ind welling Bladder Catheter Eg Straight Catheter Completed Medical Devices Description No Information Available Encounters Type Date Location Provider Dx Diagnosis Office Visit 04/07/2020 1:15p 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 Amira Garg, P A N32.81 Overactive bladder N39.41 Urge incontinence R31.0 Gross hematuria N95.2 Postmenopausal atrophic vagi nitis N76.0 Acute vaginitis R33.8 Other retention of urine Z87.440 Personal history of urinary (tract) infections Office Visit 10/11/2019 11:00a [facility] Amira Garg, P A N32.81 Overactive bladder N39.41 Urge [...] Mar MD 01/10/2020 N32.81 Overactive bladder Amira Garg PA 01/10/2020 N39.41 Urge incontinence Amira Garg PA 01/10/2020 R31.0 Gross hematuria Amira Garg PA 01/10/2020 N95.2 Postmenopausal atrophic vaginiti s Amira Garg PA 01/10/2020 N76.0 Acute vaginitis Amira Garg PA 01/10/2020 R33.8 Other retention of urine ANTELMO Hinds 01/10/2020 Z87.440 Personal history of urinary (tra ct) infections ANTELMO Hinds 12/11/2019 R31.0 Gross hematuria Monica hays MD [...] Treatment Future Appointment(s):* 05/05/2020 1:30 pm - [place] [facility] [place] * 05/05/2020 2:00 pm - Monica Mar [facility] at [place]/ [facility] 04/07/2020 - Monica Mar MD* Z87.440 Personal history of urinary (tract) infections* Comments:* Utilizing sterile technique a 14 [place] catheter was utilized to collect a specimen [...] Appt Date Monica Mar MD Botox c/d [facility] s/w Natividad ref# [id number]- ok to buy and bill, auth required. c/d [facility] on 03/31/20 s/w kelly ref# [id number] auth required and ok to buy and bill .si Created [address] [place] [address] [phone]
--- OUTSIDE RECORDS SUMMARY | 2020-04-29 05:19 | CCD ---
Author Organization Unknown Address [address] [place] [address] Phone [phone] Care Team Providers Care Track Vehicle Repairer Name Role Phone IRLANDA LONGORIA MD 3 [phone] Allergies Code Code System Name Reaction Severity Status Onset Rosuvastatin Calcium Active 06/10/2014 Tequin Active 06/10/2014 79548 RxNorm Theophylline Active 06/11/19 15 Vioxx Active 06/10/2014 020366 RxNorm Zocor Active 06/10/2014 Sulfa (Sulfonamide Antibiotics) Chest Pain Moderate Active Notes: Some allergies listed in Document s: #[id number], #[id number] could not be added to this patient's [...] Notes: Some medications listed in Docume nts: #274141, #713140 could not be added to this patient's [...] by 02/25/2020 MRI, Lumbar Spine, W/wo Contrast [facility] [address] [place] [address] (Work Place) 03/11/2020 XR, Lumbosacral Spine, 2 or 3 View [facility] [address] [place] [address] (Work Place) Notes: L5-S1 laminectomy [id number] Jon manriquez 05/20/2017 , hysterectomy at age 44, rectocele repair at age 44, deviated septum at age 47, cholecystectomy age 49, bladder mesh surgery in 2012, bladder revision repair in 2013, right foot reconstruction june 2016 05/20/2017 Results Lab Results Date Name Specimen Result Interpretation Description Value Range Status Address 03/26/2020 [facility] Pdf Report NOS No observation recorded. [facility]: [address] [facility], [place] 03/26/2020 COVID-19 RNA (SARS-CoV-2), QL, land inspector-PCR, Respirat ory Specimen NOS Normal Sars-cov-2 negative negative Final [email or web address] Cov[facility]: [address] [facility] [place] 11/28/2019 COVID-19 RNA (SARS-CoV-2), QL, land inspector-PCR, Respiratory Specim en No observation recorded. [facility]: [address] [place] [address] 11/23/2019 COVID-19 RNA (SARS-CoV-2), QL, land inspector-PCR, Respiratory Specim en No observation recorded. [facility]: [address] [place] [address] 11/02/2019 COVID-19 RNA (SARS-CoV-2), QL, land inspector-PCR, Respiratory Specim en No observation recorded. [facility]: [address] [place] [address] Past Encounters 03/31/2020 Lumbar Post-laminectomy Syndrome; Lumbar Radiculopathy; Degeneration of Lumbar Intervertebral Disc; Displacement of Lumbar Intervertebral Disc without Myelopathy; Inflammation of Sacroiliac Joint; Cervico-occipital Neuralgia; Cervical Radiculopathy; Displacement of Cervical Intervertebral Disc without Myelopathy; Degeneration of Cervical Intervertebral Disc; Cervical Spondylosis without Myelopathy; Myofascial Pain; Spondylosis without Myelopathy; Lumbosacral Spondylosis without Myelopathy Oleg Ling MD: [id number] [address], [facility] [place] [address], Ph. 03/26/2020 Pre-surgery Testing; Viral Screening Oleg Ling MD: [address] [address], [place] [address], Ph. [phone] 03/18/2020 Inflammation of Sacroiliac Joint; Cervico-occipital Neuralgia; Cervical Radiculopathy; Displacement of Cervical Intervertebral Disc without Myelopathy; Degeneration of Cervical Intervertebral Disc; Cervical Spondylosis without Myelopathy; Myofascial Pain; Lumbar Post-laminectomy Syndrome; Degeneration of Lumbar Intervertebral Disc; Displacement of Lumbar Intervertebral Disc without Myelopathy; Spondylosis without Myelopathy; Lumbosacral Spondylosis without Myelopathy; Lumbar Radiculopathy Mar Smith NP: [id number] [address], Ph. 02/14/2020 Inflammation of Sacroiliac Joint; Cervico-occipital Neuralgia; Cervical Radiculopathy; Displacement of Cervical Intervertebral Disc without Myelopathy; Degeneration of Cervical Intervertebral Disc; Cervical Spondylosis without Myelopathy; Myofascial Pain; Lumbar Post-laminectomy Syndrome; Degeneration of Lumbar Intervertebral Disc; Displacement of Lumbar Intervertebral Disc without Myelopathy; Spondylosis without Myelopathy; Lumbosacral Spondylosis without Myelopathy; Lumbar Radiculopathy Mar Smith TRAY DRIER: [id number] [address], Ph. 12/03/2019 Inflammation of Sacroiliac Joint; Cervico-occipital Neuralgia; Cervical Radiculopathy; Displacement of Cervical Intervertebral Disc without Myelopathy; Degeneration of Cervical Intervertebral Disc; Cervical Spondylosis without Myelopathy; Myofascial Pain; Lumbar Post-laminectomy Syndrome; Degeneration of Lumbar Intervertebral Disc; Displacement of Lumbar Intervertebral Disc without Myelopathy; Spondylosis without Myelopathy; Lumbosacral Spondylosis without Myelopathy; Lumbar Radiculopathy Oleg Ling MD: [address] [address], [place] [address], Ph. 11/28/2019 Pre-surgery Testing; Viral Screening Oleg Ling MD: [address] [address], [facility] [place] [address], Ph. [phone] 11/23/2019 Pre-surgery Testing; Viral Screening Oleg Ling MD: [address] [address], [place] [address], Ph. [phone] 11/22/2019 Inflammation of Sacroiliac Joint; Cervico-occipital Neuralgia; Cervical Radiculopathy; Displacement of Cervical Intervertebral Disc without Myelopathy; Degeneration of Cervical Intervertebral Disc; Cervical Spondylosis without Myelopathy; Myofascial Pain; Lumbar Post-laminectomy Syndrome; Degeneration of Lumbar Intervertebral Disc; Displacement of Lumbar Intervertebral Disc without Myelopathy; Spondylosis without Myelopathy; Lumbosacral Spondylosis without Myelopathy; Lumbar Radiculopathy Mar Smith NP: [id number] [address], Ph. 11/07/2019 Inflammation of Sacroiliac Joint; Cervico-occipital Neuralgia; Cervical Radiculopathy; Displacement of Cervical Intervertebral Disc without Myelopathy; Degeneration of Cervical Intervertebral Disc; Cervical Spondylosis without Myelopathy; Myofascial Pain; Lumbar Post-laminectomy Syndrome; Degeneration of Lumbar Intervertebral Disc; Displacement of Lumbar Intervertebral Disc without Myelopathy; Spondylosis without Myelopathy; Lumbosacral Spondylosis without Myelopathy; Lumbar Radiculopathy Oleg Ling MD: [address] [address], [facility] [place] [address], Ph. 11/02/2019 Pre-surgery Testing; Viral Screening Oleg Ling MD: [address] [address], Ph. [phone] 10/24/2019 Inflammation of Sacroiliac Joint; Cervico-occipital Neuralgia; Cervical Radiculopathy; Displacement of Cervical Intervertebral Disc without Myelopathy; Degeneration of Cervical Intervertebral Disc; Cervical Spondylosis without Myelopathy; Myofascial Pain; Lumbar Post-laminectomy Syndrome; Degeneration of Lumbar Intervertebral Disc; Displacement of Lumbar Intervertebral Disc without Myelopathy; Spondylosis without Myelopathy; Lumbosacral Spondylosis without Myelopathy; Lumbar Radiculopathy Mar Francisyue, TRAY DRIER: [address] [address], Ph. 01/01/2019 Inflammation of Sacroiliac Joint; Cervico-occipital Neuralgia; Cervical Radiculopathy; Displacement of Cervical Intervertebral Disc without Myelopathy; Degeneration of Cervical Intervertebral Disc; Cervical Spondylosis without Myelopathy; Myofascial Pain; Lumbar Post-laminectomy Syndrome; Degeneration of Lumbar Intervertebral Disc; Displacement of Lumbar Intervertebral Disc without Myelopathy; Spondylosis without Myelopathy; Lumbosacral Spondylosis without Myelopathy; Lumbar Radiculopathy Mar Francisyeu [employer]ER: [address] [address], Ph. 11/15/2018 Cervical Radiculopathy; Displacement of Cervical Intervertebral Disc without Myelopathy; Degeneration of Cervical Intervertebral Disc; Cervical Spondylosis without Myelopathy; Myofascial Pain; Lumbar Post-laminectomy Syndrome; Degeneration of Lumbar Intervertebral Disc; Displacement of Lumbar Intervertebral Disc without Myelopathy; Spondylosis without Myelopathy; Lumbosacral Spondylosis without Myelopathy; Lumbar Radiculopathy; Inflammation of Sacroiliac Joint; Cervico-occipital Neuralgia Oleg Ling MD: [id number] [address], Ph. 11/01/2018 Lumbar Post-laminectomy Syndrome; Lumbar Radiculopathy; Degeneration of Lumbar Intervertebral Disc; Displacement of Lumbar Intervertebral Disc without Myelopathy; Inflammation of Sacroiliac Joint; Cervico-occipital Neuralgia; Cervical Radiculopathy; Displacement of Cervical Intervertebral Disc without Myelopathy; Degeneration of Cervical Intervertebral Disc; Cervical Spondylosis without Myelopathy; Myofascial Pain; Spondylosis without Myelopathy; Lumbosacral Spondylosis without Myelopathy Oleg Ling MD: [address] [address], Ph. 10/03/2018 Inflammation of Sacroiliac Joint; Cervico-occipital Neuralgia; Cervical Radiculopathy; Displacement of Cervical Intervertebral Disc without Myelopathy; Degeneration of Cervical Intervertebral Disc; Cervical Spondylosis without Myelopathy; Myofascial Pain; Lumbar Post-laminectomy Syndrome; Degeneration of Lumbar Intervertebral Disc; Displacement of Lumbar Intervertebral Disc without Myelopathy; Spondylosis without Myelopathy; Lumbosacral Spondylosis without Myelopathy; Lumbar Radiculopathy Mar Smith NP: [address] [facility] [address], [place] [address], Ph. 09/01/2018 Cervical Spondylosis without Myelopathy; Degeneration of Cervical Intervertebral Disc; Displacement of Cervical Intervertebral Disc without Myelopathy; Inflammation of Sacroiliac Joint; Cervico-occipital Neuralgia; Cervical Radiculopathy; Myofascial Pain; Lumbar Post-laminectomy Syndrome; Degeneration of Lumbar Intervertebral Disc; Displacement of Lumbar Intervertebral Disc without Myelopathy; Spondylosis without Myelopathy; Lumbosacral Spondylosis without Myelopathy; Lumbar Radiculopathy Oleg Ling MD: [address] [address], [facility] [place] [address], Ph. 08/31/2018 Inflammation of Sacroiliac Joint; Cervico-occipital Neuralgia; Cervical Radiculopathy; Displacement of Cervical Intervertebral Disc without Myelopathy; Degeneration of Cervical Intervertebral Disc; Cervical Spondylosis without Myelopathy; Myofascial Pain; Lumbar Post-laminectomy Syndrome; Degeneration of Lumbar Intervertebral Disc; Displacement of Lumbar Intervertebral Disc without Myelopathy; Spondylosis without Myelopathy; Lumbosacral Spondylosis without Myelopathy; Lumbar Radiculopathy Oleg Ling MD: [address] [facility] [address], [place] [address], Ph. 08/14/2018 Neck Pain; Inflammation of Sacroiliac Joint; Cervico-occipital Neuralgia; Cervical Radiculopathy; Displacement of Cervical Intervertebral Disc without Myelopathy; Degeneration of Cervical Intervertebral Disc; Cervical Spondylosis without Myelopathy; Myofascial Pain; Lumbar Post-laminectomy Syndrome; Degeneration of Lumbar Intervertebral Disc; Displacement of Lumbar Intervertebral Disc without Myelopathy; Spondylosis without Myelopathy; Lumbosacral Spondylosis without Myelopathy; Lumbar Radiculopathy Mar Smith NP: [address] [address], [facility] [place] [address], Ph. 02/03/2018 Inflammation of Sacroiliac Joint; Cervico-occipital Neuralgia; Cervical Radiculopathy; Displacement of Cervical Intervertebral Disc without Myelopathy; Degeneration of Cervical Intervertebral Disc; Cervical Spondylosis without Myelopathy; Myofascial Pain; Lumbar Post-laminectomy Syndrome; Degeneration of Lumbar Intervertebral Disc; Displacement of Lumbar Intervertebral Disc without Myelopathy; Spondylosis without Myelopathy; Lumbosacral Spondylosis without Myelopathy; Lumbar Radiculopathy Oleg Ling MD: [address] [address], [place] [address], Ph. Social History Tobacco Smoking Status Never [...]
--- OUTSIDE RECORDS SUMMARY | 2020-04-29 05:19 | CCD | Continuity of Care Document ---
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
--- OUTSIDE RECORDS SUMMARY | 2020-04-29 05:19 | CCD | Continuity of Care Document ---
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 AUTM [phone] Andrea Wadsworth D.O. AUTM [phone] Oleg Ling M.D. AUTM [phone] Problems Active Problems Provider Date Diabetes mellitus [...] by mouth every day 30{caps Unknown Ergocalciferol 64284Uqfq Capsules 1 po every other week 8caps [...] 1 by mouth every day Unknown Nystatin 493197Sktv/GM Cream apply topically to affected areas twice [...] by mouth 1-2 hours before procedure; istop# [id number] 1tabs N31.0 Hayley Mar MD 10/11/2019 - [...] Trace Ua Clarity Not Entered Ua Specific Yeoman 1.025 1.003-1.030 Ua PH 5.0 5.0-7.5 Ua Bilirubin Small Ua Urobilinogen 0.2 E.U./dL 0.0-1.0 Laboratory test finding 04/07/[address] [address] [phone] Urine Culture <pending> 230 Ua Routine 04/07/2020 [facility] REF TO DR ADDRESS ON ORDER FOR (315)- - Ua Glucose Negative Ua Protein Negative Ua Nitrite Positive Ua Leuko Trace Ua Blood Negative Ua Color Not Entered Ua Ketones Trace Ua Clarity Not Entered Ua Specific Yeoman >=1.030 1.003-1.030 Ua PH 5.0 5.0-7.5 Ua Bilirubin Small Ua Urobilinogen 0.2 E.U./dL 0.0-1.0 Vaginosis(BV) Test 01/10/[address] [address] [phone] Linda By Dna Probe NEGATIVE Negative Gardnerella By Dna Probe POSITIVE Abnormal Negative Trichomonas By Dna Probe NEGATIVE Negative 1 Laboratory test finding 01/10/[address] [address] [phone] Urine Culture <SEE NOTE> 2 230 Ua Routine 01/10/2020 [facility] REF TO DR ADDRESS ON ORDER FOR (315)- - Ua Glucose Negative Ua Protein Negative Ua Nitrite Positive Ua Leuko Trace Ua Blood Negative Ua Color Not Entered Ua Ketones 15 mg/dL Ua Clarity Not Entered Ua Specific Yeoman 1.020 1.003-1.030 Ua PH 6.5 5.0-7.5 Ua Bilirubin Negative Ua Urobilinogen 0.2 E.U./dL 0.0-1.0 230 Ua Routine 01/10/2020 [facility] REF TO DR ADDRESS ON ORDER FOR (315)- - Ua Glucose Negative Ua Protein Negative Ua Nitrite Positive Ua Leuko Small Ua Blood Trace-intact Ua Color Not Entered Ua Ketones 15 mg/dL Ua Clarity Not Entered Ua Specific Yeoman 1.025 1.003-1.030 Ua PH 6.0 5.0-7.5 Ua Bilirubin Negative Ua Urobilinogen 0.2 E.U./dL 0.0-1.0 Laboratory test finding 12/11/[address] [address] [phone] Urine Culture <SEE NOTE> 3 230 Ua Routine 11/27/2019 [facility] REF TO DR ADDRESS ON ORDER FOR (315)- - Ua Glucose Negative Ua Protein Negative Ua Nitrite Negative Ua Leuko Negative Ua Blood Negative Ua Color Not Entered Ua Ketones Negative Ua Clarity Not Entered Ua Specific Yeoman >=1.030 1.003-1.030 Ua PH 5.5 5.0-7.5 Ua Bilirubin Negative Ua Urobilinogen 0.2 E.U./dL 0.0-1.0 Laboratory test finding 10/11/[address] 6509252 [phone] Urine Culture <SEE NOTE> 4 230 Ua Routine 10/11/2019 [facility] REF TO DR ADDRESS ON ORDER FOR (392)- - Ua Glucose Negative Ua Protein 30 mg/dL Ua Nitrite Negative Ua Leuko Negative Ua Blood Negative Ua Color Not Entered Ua Ketones 15 mg/dL Ua Clarity Not Entered Ua Specific Yeoman >=1.030 1.003-1.030 Ua PH 5.0 5.0-7.5 Ua Bilirubin Moderate Ua Urobilinogen 0.2 E.U./dL 0.0-1.0 1 TESTING PERFORMED BY NUCLEIC ACID HYBRIDIZATION 2 Run: 01/12/20 1121 INTERFACED REPORT Name: Trini Jiang Age/Sex: 64/F Location: [facility] Acct: [id number] Unit: [id number] Status: REG REF Room/Bed: Re01/10/20 Disch: Att Dr: Amira Garg Specimen #: [id number] Ordered : 01/10/2007/24/1930 Collected : 01/10/2007/24/1401 By: [...] REPORT Name: Trini Jiang Age/Sex: 64/F Location: [facility] Acct: [id number] Unit: [id number] Status: REG REF Room/Bed: Re12/11/19 Disch: Att Dr: Monica Mar MD Specimen #: [id number] Ordered : 12/11/1908/24/2102 Collected : 12/11/1908/25/1547 By: [...] REPORT Name: Trini Jiang Age/Sex: 64/F Location: [facility] Acct: [id number] Unit: [id number] Status: REG REF Room/Bed: Re10/11/19 Disch: Junior Dr: Amira Garg Specimen #: [id number] Ordered : 10/11/1908/24/1720 Collected : 10/11/1908/24/1124 By: OFFICE Received: 10/11/1908/24/1720 By: EVERARDO Source: URINE CATH Specimen Description: Procedure Result COLONY COUNT Final COLONY COUNT LESS THAN 1,000 CFU/ML URINE CULTURE Final NO GROWTH NO GROWTH <18 HOURS NO GROWTH 42 HOURS URINE CULTURE Preliminary (Corrected) NO GROWTH NO GROWTH <18 HOURS END OF REPORT Procedures Date Code Description Status 01/10/2020 83671 Insertion,Of Non Ind welling Bladder Catheter Eg Straight Catheter Completed 12/11/2019 04970 Cystourethroscopy, Separate Proc edure Completed 12/11/2019 07292 Bladder Irrigation, Simple Lavag e And/Or Instillation Completed 11/27/2019 23604 Cystourethroscopy,/W Injects For Chemodenervation Of The Bladder Completed 11/27/2019 56285 Cystourethroscopy, W/Fulguration Inc Cryosurgery Or Laser Surg Completed 10/11/2019 12846 Insertion,Of Non Ind welling Bladder Catheter Eg [...] history of urinary (tra ct) infections Amira aGrg, PA 12/11/2019 R31.0 Gross hematuria Monica hays [...] Treatment Future Appointment(s):* 05/05/2020 1:30 pm - [place] [facility] [place] * 05/05/2020 2:00 pm - Monica Mar [facility] [place] 04/07/2020 - Monica Mar MD* Z87.440 Personal history of urinary (tract) infections* Comments:* Utilizing sterile technique a 14 Luxembourgish catheter was utilized to collect a specimen [...] Appt Date Monica Mar MD Botox c/d [facility] s/w Natividad ref# [id number]- ok to buy and bill, auth required. c/d [facility] on 03/31/20 s/w kelly ref# [id number] auth required and ok to buy and bill .si Created [address] [place] [address] [phone]
--- OUTSIDE RECORDS SUMMARY | 2020-04-29 05:20 | CCD ---
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 Role Phone IRLANDA LONGORIA MD 3 [phone] Allergies Code Code System Name Reaction Severity Status Onset Rosuvastatin Calcium Active 06/10/2014 Tequin Active 06/10/2014 63661 RxNorm Theophylline Active 06/11/19 15 Vioxx Active 06/10/2014 029140 RxNorm Zocor Active 06/10/2014 Sulfa (Sulfonamide Antibiotics) Chest Pain Moderate Active Notes: Some allergies listed in Document s: #[id number], #[id number] could not be added to this patient's [...] Notes: Some medications listed in Docume nts: #[id number], #[id number] could not be added to this patient's [...] Lumbar Spine, W/wo Contrast [facility] [address], [place] [id number] (Work Place) 03/11/2020 XR, Lumbosacral Spine, 2 or 3 View [facility] [address] [place] [address] (Work Place) Notes: L5-S1 laminectomy [id number] Dr[address] Jon manriquez 05/20/2017 , hysterectomy at age 44, rectocele repair at age 44, deviated septum at age 47, cholecystectomy age 49, bladder mesh surgery in 2012, bladder revision repair in 2013, right foot reconstruction june 2016 05/20/2017 Results Lab Results Date Name Specimen Result Interpretation Description Value Range Status Address 11/28/2019 COVID-19 RNA (SARS-CoV-2), QL, grip wrapper-PCR, Respiratory Specim en No observation recorded. Yozio: [address] [place] [address] 11/23/2019 COVID-19 RNA (SARS-CoV-2), QL, grip wrapper-PCR, Respiratory Specim en No observation recorded. Yozio: [address] [place] [address] 11/02/2019 COVID-19 RNA (SARS-CoV-2), QL, grip wrapper-PCR, Respiratory Specim en No observation recorded. 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 02/14/2020 Inflammation of Sacroiliac Joint; Cervico-occipital Neuralgia; Cervical Radiculopathy; Displacement of Cervical Intervertebral Disc without Myelopathy; Degeneration of Cervical Intervertebral Disc; Cervical Spondylosis without Myelopathy; Myofascial Pain; Lumbar Post-laminectomy Syndrome; Degeneration of Lumbar Intervertebral Disc; Displacement of Lumbar Intervertebral Disc without Myelopathy; Spondylosis without Myelopathy; Lumbosacral Spondylosis without Myelopathy; Lumbar Radiculopathy Marmarichuy Rodriguez Sarah, CANE CUTTER: [address] [facility] [address], [place] [address], Ph. 12/03/2019 Inflammation of Sacroiliac Joint; Cervico-occipital Neuralgia; Cervical Radiculopathy; Displacement of Cervical Intervertebral Disc without Myelopathy; Degeneration of Cervical Intervertebral Disc; Cervical Spondylosis without Myelopathy; Myofascial Pain; Lumbar Post-laminectomy Syndrome; Degeneration of Lumbar Intervertebral Disc; Displacement of Lumbar Intervertebral Disc without Myelopathy; Spondylosis without Myelopathy; Lumbosacral Spondylosis without Myelopathy; Lumbar Radiculopathy Oleg Ling MD: [address] [address], [facility] [place] [address], Ph. 11/28/2019 Pre-surgery Testing; Viral Screening Oleg Ling MD: [address] [address], [place] [address], Ph. [phone] 11/23/2019 Pre-surgery Testing; Viral Screening Oleg Ling MD: [address] [address], [place] [address], Ph. [phone] 11/22/2019 Inflammation of Sacroiliac Joint; Cervico-occipital Neuralgia; Cervical Radiculopathy; Displacement of Cervical Intervertebral Disc without Myelopathy; Degeneration of Cervical Intervertebral Disc; Cervical Spondylosis without Myelopathy; Myofascial Pain; Lumbar Post-laminectomy Syndrome; Degeneration of Lumbar Intervertebral Disc; Displacement of Lumbar Intervertebral Disc without Myelopathy; Spondylosis without Myelopathy; Lumbosacral Spondylosis without Myelopathy; Lumbar Radiculopathy Mar [place] Sarah, CANE CUTTER: [address] [facility] [address], [facility] [place] [address], Ph. 11/07/2019 Inflammation of Sacroiliac Joint; Cervico-occipital Neuralgia; Cervical Radiculopathy; Displacement of Cervical Intervertebral Disc without Myelopathy; Degeneration of Cervical Intervertebral Disc; Cervical Spondylosis without Myelopathy; Myofascial Pain; Lumbar Post-laminectomy Syndrome; Degeneration of Lumbar Intervertebral Disc; Displacement of Lumbar Intervertebral Disc without Myelopathy; Spondylosis without Myelopathy; Lumbosacral Spondylosis without Myelopathy; Lumbar Radiculopathy Oleg Ling MD: [address] [address], [place] [address], Ph. 11/02/2019 Pre-surgery Testing; Viral Screening Oleg Ling MD: [address] [address], [facility] [place] [address], Ph. [phone] 10/24/2019 Inflammation of Sacroiliac Joint; Cervico-occipital Neuralgia; Cervical Radiculopathy; Displacement of Cervical Intervertebral Disc without Myelopathy; Degeneration of Cervical Intervertebral Disc; Cervical Spondylosis without Myelopathy; Myofascial Pain; Lumbar Post-laminectomy Syndrome; Degeneration of Lumbar Intervertebral Disc; Displacement of Lumbar Intervertebral Disc without Myelopathy; Spondylosis without Myelopathy; Lumbosacral Spondylosis without Myelopathy; Lumbar Radiculopathy Mar Smith NP: [address] [address], [facility] [place] [address], Ph. 01/01/2019 Inflammation of Sacroiliac Joint; Cervico-occipital Neuralgia; Cervical Radiculopathy; Displacement of Cervical Intervertebral Disc without Myelopathy; Degeneration of Cervical Intervertebral Disc; Cervical Spondylosis without Myelopathy; Myofascial Pain; Lumbar Post-laminectomy Syndrome; Degeneration of Lumbar Intervertebral Disc; Displacement of Lumbar Intervertebral Disc without Myelopathy; Spondylosis without Myelopathy; Lumbosacral Spondylosis without Myelopathy; Lumbar Radiculopathy Mar Smith NP: [address] [address], [place] [address], Ph. 11/15/2018 Cervical Radiculopathy; Displacement of Cervical Intervertebral Disc without Myelopathy; Degeneration of Cervical Intervertebral Disc; Cervical Spondylosis without Myelopathy; Myofascial Pain; Lumbar Post-laminectomy Syndrome; Degeneration of Lumbar Intervertebral Disc; Displacement of Lumbar Intervertebral Disc without Myelopathy; Spondylosis without Myelopathy; Lumbosacral Spondylosis without Myelopathy; Lumbar Radiculopathy; Inflammation of Sacroiliac Joint; Cervico-occipital Neuralgia Oleg Ling MD: [address] [address], [place] [address], Ph. 11/01/2018 Lumbar Post-laminectomy Syndrome; Lumbar Radiculopathy; Degeneration of Lumbar Intervertebral Disc; Displacement of Lumbar Intervertebral Disc without Myelopathy; Inflammation of Sacroiliac Joint; Cervico-occipital Neuralgia; Cervical Radiculopathy; Displacement of Cervical Intervertebral Disc without Myelopathy; Degeneration of Cervical Intervertebral Disc; Cervical Spondylosis without Myelopathy; Myofascial Pain; Spondylosis without Myelopathy; Lumbosacral Spondylosis without Myelopathy Oleg Ling MD: [id number] [address], Ph. 10/03/2018 Inflammation of Sacroiliac Joint; Cervico-occipital Neuralgia; Cervical Radiculopathy; Displacement of Cervical Intervertebral Disc without Myelopathy; Degeneration of Cervical Intervertebral Disc; Cervical Spondylosis without Myelopathy; Myofascial Pain; Lumbar Post-laminectomy Syndrome; Degeneration of Lumbar Intervertebral Disc; Displacement of Lumbar Intervertebral Disc without Myelopathy; Spondylosis without Myelopathy; Lumbosacral Spondylosis without Myelopathy; Lumbar Radiculopathy Mar Smith NP: [id number] [address], Ph. 09/01/2018 Cervical Spondylosis without Myelopathy; Degeneration of Cervical Intervertebral Disc; Displacement of Cervical Intervertebral Disc without Myelopathy; Inflammation of Sacroiliac Joint; Cervico-occipital Neuralgia; Cervical Radiculopathy; Myofascial Pain; Lumbar Post-laminectomy Syndrome; Degeneration of Lumbar Intervertebral Disc; Displacement of Lumbar Intervertebral Disc without Myelopathy; Spondylosis without Myelopathy; Lumbosacral Spondylosis without Myelopathy; Lumbar Radiculopathy Oleg Ling MD: [id number] [address], Ph. 08/31/2018 Inflammation of Sacroiliac Joint; Cervico-occipital Neuralgia; Cervical Radiculopathy; Displacement of Cervical Intervertebral Disc without Myelopathy; Degeneration of Cervical Intervertebral Disc; Cervical Spondylosis without Myelopathy; Myofascial Pain; Lumbar Post-laminectomy Syndrome; Degeneration of Lumbar Intervertebral Disc; Displacement of Lumbar Intervertebral Disc without Myelopathy; Spondylosis without Myelopathy; Lumbosacral Spondylosis without Myelopathy; Lumbar Radiculopathy Oleg Ling MD: [address] [facility] [address], [facility] [place] [address], Ph. 08/14/2018 Neck Pain; Inflammation of Sacroiliac Joint; Cervico-occipital Neuralgia; Cervical Radiculopathy; Displacement of Cervical Intervertebral Disc without Myelopathy; Degeneration of Cervical Intervertebral Disc; Cervical Spondylosis without Myelopathy; Myofascial Pain; Lumbar Post-laminectomy Syndrome; Degeneration of Lumbar Intervertebral Disc; Displacement of Lumbar Intervertebral Disc without Myelopathy; Spondylosis without Myelopathy; Lumbosacral Spondylosis without Myelopathy; Lumbar Radiculopathy Mar Smith NP: [id number] [address], [facility] [place] [address], Ph. 02/03/2018 Inflammation of Sacroiliac Joint; Cervico-occipital Neuralgia; Cervical Radiculopathy; Displacement of Cervical Intervertebral Disc without Myelopathy; Degeneration of Cervical Intervertebral Disc; Cervical Spondylosis without Myelopathy; Myofascial Pain; Lumbar Post-laminectomy Syndrome; Degeneration of Lumbar Intervertebral Disc; Displacement of Lumbar Intervertebral Disc without Myelopathy; Spondylosis without Myelopathy; Lumbosacral Spondylosis without Myelopathy; Lumbar Radiculopathy Oleg Ling MD: [address] [facility] [address], [place] [address], Ph. Social History Tobacco Smoking Status Never [...]
--- OUTSIDE RECORDS SUMMARY | 2020-04-29 05:20 | CCD ---
Author Author [facility] Organization [facility] Address Unknown Phone Unavailable Care Team Providers Care Maintenance Technician Name Role Phone Kimani Ann Unavailable PROBLEMS Type Condition ICD9-CM Code [id number] Code Onset Dates Condition S tatus SNOMED Code Notes Problem Hypothyroid E03.9 Active 88698791 Problem Hypertension I10 Active 87766307 Problem Vitamin D deficiency E55.9 Active 70318947 Problem Depression F32.9 Active 81662669 Problem Fibromyalgia M79.7 Active 141874761 Problem Insomnia G47.00 Active 401798821 Problem Breast cancer screening Z12.39 Active 30226565 8 Problem Essential tremor G25.0 Active 581844235 Problem Diastolic CHF I50.30 Active 481541735 Problem Diabetes mellitus without me ntion of complication, type II or unspecified type, not stated as uncontrolled 250.00 Ac tive 071612424 Problem Recurrent urinary tract infection N39.0 Active 549378761 Problem Impingement syndrome of both shoulders M75.41 A ctive 642162511 Problem Hyperlipidemia E78.5 Active 05908086 Problem Colon polyp K63.5 Active 59962461 Problem NICKI (obstructive sleep apnea) G47.33 Active 78 249552 Problem Pulmonary embolism I26.99 Active 58559247 Problem DJD (degenerative joint disease), cervical M50.30 Active 34087040 Problem Wrist fracture, left, sequela S62.102S Active 2 34895051 Problem Other disturbances of skin sensation R20.8 Act андрей 23020058 Problem DJD (degenerative joint disease), lumbar M47.816 Active 562097654 Problem Hyperalgesia R20.8 Active 02759838 Problem DM2 (diabetes mellitus, type 2) E11.9 Active 85823868 Problem Hypothyroidism, unspecified E03.9 Active 4093 0008 Problem Ataxia R27.0 Active 08921506 Problem Mixed hyperlipidemia E78.2 Active 277045957 Problem Asthma, severe persistent J45.50 Active 929629 000 Problem Constipation, chronic K59.09 Active 784128431 Problem Chronic pain syndrome G89.4 Active 586632062 Problem Oral candidiasis B37.0 Active 31826019 Problem Primary osteoarthritis of both knees M17.0 Act андрей 048542641 Problem Gastroesophageal reflux disease, esophagitis pre sence not specified K21.9 Active 727311918 Problem Menopausal and female climacteric states N95.1 Active 601537452 Problem Folic acid deficiency E53.8 Active 456348251 Problem Osteoporosis M81.0 Active 82963304 Problem Tibial plateau fracture, left S82.142A Active 2 9859729 Problem 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 Active 953468209 Problem Falls frequently R29.6 Active 485062327 Problem Primary osteoarthritis of right knee M17.11 Act андрей [id number] ALLERGIES Allergen (clinical drug ingredient) Drug/Non Drug Allergy do cumented on EMR Reaction Allergy Type Onset Date Status tequin pruritis Non Drug Allergy Active Zocor 10 Anaphylaxis Drug Allergy Active puneet sprinkles head ache Non Drug Allergy Active Vioxx (for allergy use only) bruising Drug Allergy Active ENCOUNTERS from 1955 to 2020-02-09 Encounter Location Date Provider Diagnosis [address] [address] Feb, 020 Kimani Ann IMMUNIZATIONS Vaccine Route Administration Date Status Influenza (6mo & up) Fluzone IM Intramuscular Feb 13, 2013 Ad ministered SOCIAL HISTORY Tobacco Use: Social History Observation Description Date Details (start date - stop date) Never Smoker Sex Assigned At : Social History Observation Description Sex Assigned At Unknown Education: Question Answer Notes Level of Education: High School Language: Question Answer Notes Languages spoken: Wolof Yarsani: Question Answer Notes Yarsani 22 [employer] Sexual Hx: Question Answer Notes Had sex in the last 12 months (vaginal, oral, or anal)? No Have you ever had an STD? No Alcohol Screening: Question Answer Notes Did you have a drink containing alcohol in the past year? No Points 0 Interpretation Negative Tobacco Use: Question Answer Notes Are you a: never smoker REASON FOR REFERRAL No Information VITAL SIGNS No information MEDICATIONS Medication SIG (Take, Route, Frequency, Duration) Notes Start Da te End Date Status Aspirin 81 MG 1 tablet Orally Once a day for 28 Active Magnesium Oxide 400 (240 Mg) MG TAKE ONE TABLET BY NELSON TH @8AM and TAKE ONE TABLET @8PM for 28 Active Reclast 5 MG/100ML as directed Intravenous Active Escitalopram Oxalate 10 MG 1 tablet Orally Once a day for 28 Active Tamy Classic Plus Brief/XL _ 1 brief _ as needed for i ncontinence Dx: 788.33 for 30 day(s) Nov, Active Baclofen 10 MG as directed Orally four times daily Active Blood Glucose Test One touch as directed SQ Twice a day DX 250 for 90 days Active Gabapentin 800 MG TAKE ONE TABLET BY MOUTH @8A M and TAKE ONE TABLET @12PM and TAKE ONE TABLET @8PM for 28 Acti ve MethylPREDNISolone 2 1 tablet Orally devery other day Active Underpads 1 as directed Daily for 30 day(s) July, Active Potassium chloride 20 meq 1 tab(s) orally Once a day for 28 Active Indapamide 2.5 MG 1 tablet by mouth Once a day for 28 Active Klonopin 0.5 MG 1 tablet by mouth Twice a day MDD: 2 Active Nexium 24HR 20 MG TAKE TWO CAPSULES BY MOUTH @8AM for 28 Active Rozerem 8 mg 1 tablet at bedtime Orally Daily at bedtime as needed fo r 28 Active Celebrex 200 MG 1 capsule with food Orally O nce a day as needed breakthrough pain for 28 Active Blood Glucose Test - one touch verio flex subcuta neously bid DX: E11.9 for 30 days Sep, Active Proventil HFA 108 (90 Base) MCG/ACT 2 puffs Inhalation 4 times a day as needed for 25 Active Ergocalciferol 22225 UNIT 1 capsule Orally every other week for 28 Active Glimepiride 4 MG 1 tablet Orally AC BID for 30 days Active Levothyroxine Sodium 75 MCG 1 tablet every morning on an empty stomach Orally Once a day for 28 Active Januvia 100 MG TAKE ONE TABLET BY MOUTH @8AM for 28 Active Glimepiride 2 MG 1 tablet Orally AC BID for 28 Active Folic Acid 1 MG 1 tablet Orally Once a day for 28 Active Voltaren 1 % as directed Transdermal Four times a day as needed to posterior knee for 12 Active Docusate Sodium 100 MG 2 capsules Orally bid for 28 Active AirDuo RespiClick 232/14 232-14 MCG/ACT 1 puff Inhalat ion Twice a day for 30 Days Active Nystatin Powder 229019 UNIT 1 application to affected area Externally twice daily under juan breasts for 30 day(s) Active Cromolyn Sodium 20 MG/2ML 2 ml Inhalation Three times a day for 30 da ys Active Mag-Oxide 400 MG 1 tablet Orally Twice a day Active Rosuvastatin Calcium 40 MG 1 tablet Orally Once a day for 28 Active Duloxetine HCl 60 MG 1 capsule Orally bid for 28 Active Senna Plus 8.6-50 MG 2 tablet in the evening as needed Orall y Once a day for 28 Active Magnesium Oxide 400 MG TAKE ONE TABLET BY MOUTH @8A M and TAKE ONE TABLET @8PM for 28 Active Gabapentin 800 MG 1 tablet Orally Three times a day for 28 Active Cyclobenzaprine HCl 5 MG 1 tab Three times a day as n eeded Orally 30 day(s) Orally three times daily for 30 Days Feb, Active Sitagliptin Phosphate 100 MG 1 tablet Orally Once a day for 28 Active Amitriptyline HCl 25 MG 1 tab Orally at bedtime for 90 day(s) Dec, Active Metformin HCl 850 mg 1 tablet by mouth Twice a day for 28 Active PROCEDURES No Information RESULTS No Results REASON FOR VISIT Amitriptyline HCl 25 MG Tablet 30 day MEDICAL (GENERAL) HISTORY Type Description Date Medical History asthma, severe persistent-fo llows with Dr. Wadsworth-10/2015 FEV1 2.0L (69%)/ratio 80 %/ normal CT chest PE protocol Medical History thoracolumbar DJD, status po st L5/S1 laminectomy-06/2015 MRI lumbar spine showing L5/S1 laminectomy changes c L4-S1 diffuse bulges abutting thecal sac, no changes c/w 04/2014 and 04/2007/January 2011 [facility] Melchor-R C8 subacute radiculopathy, mild chronic right C6-C7 radiculopathy, very mild right carpal tunnel syndrome/ - RF/CCP/NETTE/ ML DJD, ricardo L5/S1 s compression Medical History T2DM NID Medical History hypothyroidism Medical History hyperlipidemia 2B Medical History nonalcoholic fatty liver dis ease-seen by January 2009 ultrasound, hepatomegaly 05/17 Medical History depression/panic disorder/agorophobia Medical History osteoporosis Medical History vitamin D deficiency Medical History tubular adenoma by colonosco py 11/2007/cecal inflammatory p-11/2017-R Medical History obesity, morbid Medical History GERD Medical History essential tremor Medical History bilateral knee osteoarthriti s with secondary instability-June 2010 normal nerve conduction studies bilateral extremities-[facility] Medical History anemia, iron deficiency Medical History bilateral intertriginous candidiasis of bilateral breasts Medical History hypothalamic hyperhidrosis Medical History insomnia, multifactorial Medical History hypertension-March 2006 no rmal cardiac catheterization-Dr. Stroud normal dobutamine ST-Antecol Medical History history of significant aspir in-induced ecchymoses-July 2008 normal bone marrow biopsy Medical History CHF chronic secondary to loco stolic dysfunction-07/2012 TTE-LVEF 60%, grade 1 diastolic dysfunction-Antecol Medical History history of glucocorticoid/as pirin-related purpura-negative bone marrow biopsy, workup-Dr. Weeks July 2008 Medical History right shoulder a.c. joint ar thritis, supraspinatus tendinitis with partial thickness tear by November 2010 MRI Medical History internal/external hemorrhoids Medical History fibrocystic breast disease Medical History cervical DJD-C3-T1 spondylos is s compression c multilevel NF narrowing by 10/2015 MRI NR Medical History 06/11/2014 UDS (Tiwari) c c/w DO, ANGELICA, voidi ng c abnormal straining Medical History recurrent UTI/urge incotninence/ISD Medical History NICKI-12/05/15 HST c SILVESTRE 11 Medical History L distal radius fracture s/p mechanical fall using scooter 07/2016-casted by Graciela Medical History R PE-dx at [facility]-CT A chest c "small pulmonary emboli to RU PA with areas of parenchymal disease suggestive of pulmonary infarction"- started in Xarelto 15 BID Medical History MRSA UTI-04/08/17 UCX >100K Medical History R distal femur comminuted fr acture sp mechanical fall sp IM otis placement-02/20/19 Dr. Gao-[facility] Surgical History laparoscopic cholecystectomy-Dr. Courtney January 2007 Surgical History EGD/colonoscopy-Dr. Singer ild chemical gastritis, tubular adenoma, negative small bowel biopsy, melanosis coli November 2007 Surgical History CAREY/BSO October 2000 Surgical History lumbar laminectomy Surgical History rectocele repair Surgical History sinus surgery Surgical History TVT-Naim 01/2012 Surgical History cystoscopy release of midure thral mesh 2 irritative voiding symptoms, incontinence since TVT placement 01/2012-Carballo 11/20/2012 Surgical History Left knee arthroscopic-Fish 10/04/2013 Surgical History R foot hallux MTP fusion bun ion surgery c bone graft/pin- Dr.Frederick Zambrano-[facility]OS 06/25/16 Surgical History IM nail fo R distal femur re trograde approach [address] Gao-[facility] 02/20/19 Hospitalization History hyperkalemia 9.3 with mild i ncreased cr to 1.2-baseline 0.9, decreased to 2.8 next AM c Kayexalate/insulin rx ? 2 to meds, dehydation and E coli UTI-Celebrex 200 bid 07/2011 Hospitalization History SIRS with UTI and L pyelonep hritis-UCX contaminated treated c Zosyn/Augmentin 05/31- Hospitalization History R E coli PN seen by 10/20 CT A/P c mild R hydro s obstructing stone-rxed c Levaquin IV/po 10D, 10/20 - BCX x 2 10/21- Hospitalization History syncope 2 pain, K. pneumonia UTI c SIRS, dehyrdation- d/juliette on Macrobid BID 10D-head CT, CT AP NAD, - serial EK/T-I, telemetry 11/20- Hospitalization History Jyened-irxy-io respiratory f ailure c desaturation to Sa)2 20% from same day surgery for R bunion surgery, then rehab at [facility] 06/25- Hospitalization History frequent falls-favoring 2 op iate overuse/misuse-CT cervical/head NAD/xray thoracic, LS, L hip NAD, stable CBCD, CMP, CIP/T-I, - telemetry, UDS + morphine, oxycodone; unresponsive episode requiring Narcan 0.8 to reverse 04/08-06/22 Hospitalization History mechanical fall sp R femur s p IM nail placement by Dr. Gao, tx [facility] 02/19- Hospitalization History P. mirabilis UTI c sepsis-[facility] WBC 16.3, BCX1 NG, CT AP diffuse bladder wall thickening, rxed c ceft, dced on Augmentin 06/02-/06/05/19 Goals Section No Information Health Concerns No Information MEDICAL EQUIPMENT No Information MENTAL STATUS No Information FUNCTIONAL STATUS No Information ASSESSMENTS No Information PLAN OF TREATMENT Medication Medication Name Sig Start Date Stop Date Amitriptyline HCl 25 MG 1 tab Orally at bedtime for 90 day(s) Dec, Metformin HCl 850 mg 1 tablet by mouth Twice a day for 28 Cyclobenzaprine HCl 5 MG 1 tab Three times a day as n eeded Orally 30 day(s) Orally three times daily for 30 Days Feb, Gabapentin 800 MG 1 tablet Orally Three times a day for 28 Januvia 100 MG TAKE ONE TABLET BY MOUTH @8AM for 28 Magnesium Oxide 400 (240 Mg) MG TAKE ONE TABLET BY NELSON TH @8AM and TAKE ONE TABLET @8PM for 28 Senna Plus 8.6-50 MG 2 tablet in the evening as needed Orall y Once a day for 28 Voltaren 1 % as directed Transdermal Four times a day as needed to posterior knee for 12 Gabapentin 800 MG TAKE ONE TABLET BY MOUTH @8A M and TAKE ONE TABLET @12PM and TAKE ONE TABLET @8PM for 28 Potassium chloride 20 meq 1 tab(s) orally Once a day for 28 Glimepiride 2 MG 1 tablet Orally AC BID for 28 Magnesium Oxide 400 MG TAKE ONE TABLET BY MOUTH @8A M and TAKE ONE TABLET @8PM for 28 Celebrex 200 MG 1 capsule with food Orally O nce a day as needed breakthrough pain for 28 Docusate Sodium 100 MG 2 capsules Orally bid for 28 Rosuvastatin Calcium 40 MG 1 tablet Orally Once a day for 28 AirDuo RespiClick 232/14 232-14 MCG/ACT 1 puff Inhalat ion Twice a day for 30 Days Nexium 24HR 20 MG TAKE TWO CAPSULES BY MOUTH @8AM for 28 Indapamide 2.5 MG 1 tablet by mouth Once a day for 28 Aspirin 81 MG 1 tablet Orally Once a day for 28 Duloxetine HCl 60 MG 1 capsule Orally bid for 28 Nystatin Powder 249244 UNIT 1 application to affected area Externally twice daily under juan breasts for 30 day(s) Rozerem 8 mg 1 tablet at bedtime Orally Daily at bedtime as n eeded for 28 Insurance Providers Payer Name Payer Address Payer Phone Insured Name Patient Relati onship to Insured Coverage Start Date Coverage End Date [employer] [facility] [address] [place] [id number] CASSIE ARTHUR self
--- OUTSIDE RECORDS SUMMARY | 2020-04-29 05:20 | CCD ---
Author Author [facility] Organization [facility] Address Unknown Phone Unavailable Care Team Providers Care Quality Rn Name Role Phone SethKimani nogueira Unavailable PROBLEMS Type Condition ICD9-CM Code UIH12-FA Code Onset Dates Condition S tatus SNOMED Code Notes Problem Hypothyroid E03.9 Active 99242183 Problem Hypertension I10 Active 15438676 Problem Vitamin D deficiency E55.9 Active 45606303 Problem Depression F32.9 Active 97313129 Problem Fibromyalgia M79.7 Active 868888176 Problem Insomnia G47.00 Active 885002906 Problem Breast cancer screening Z12.39 Active 83957895 8 Problem Essential tremor G25.0 Active 291007042 Problem Diastolic CHF I50.30 Active 990990026 Problem Diabetes mellitus without me ntion of complication, type II or unspecified type, not stated as uncontrolled 250.00 Ac tive 727461741 Problem Recurrent urinary tract infection N39.0 Active 788551917 Problem Impingement syndrome of both shoulders M75.41 A ctive 583757941 Problem Hyperlipidemia E78.5 Active 24123913 Problem Colon polyp K63.5 Active 22626600 Problem NICKI (obstructive sleep apnea) G47.33 Active 78 877917 Problem Pulmonary embolism I26.99 Active 87880989 Problem DJD (degenerative joint disease), cervical M50.30 Active 12064471 Problem Wrist fracture, left, sequela S62.102S Active 2 23333155 Problem Other disturbances of skin sensation R20.8 Act андрей 26084427 Problem DJD (degenerative joint disease), lumbar M47.816 Active 294379740 Problem Hyperalgesia R20.8 Active 31024637 Problem DM2 (diabetes mellitus, type 2) E11.9 Active 32536204 Problem Hypothyroidism, unspecified E03.9 Active 4093 0008 Problem Ataxia R27.0 Active 70513198 Problem Mixed hyperlipidemia E78.2 Active 293620457 Problem Asthma, severe persistent J45.50 Active 589150 000 Problem Constipation, chronic K59.09 Active 382934780 Problem Chronic pain syndrome G89.4 Active 841202446 Problem Oral candidiasis B37.0 Active 17094809 Problem Primary osteoarthritis of both knees M17.0 Act андрей 001219440 Problem Gastroesophageal reflux disease, esophagitis pre sence not specified K21.9 Active 073930894 Problem Menopausal and female climacteric states N95.1 Active 448760640 Problem Folic acid deficiency E53.8 Active 817640702 Problem Osteoporosis M81.0 Active 23340358 Problem Tibial plateau fracture, left S82.142A Active 2 5672474 Problem 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 Active 393296884 Problem Falls frequently R29.6 Active 993775434 Problem Primary osteoarthritis of right knee M17.11 Act андрей [id number] ALLERGIES Allergen (clinical drug ingredient) Drug/Non Drug Allergy do cumented on EMR Reaction Allergy Type Onset Date Status tequin pruritis Non Drug Allergy Active Zocor 10 Anaphylaxis Drug Allergy Active puneet sprinkles head ache Non Drug Allergy Active Vioxx (for allergy use only) bruising Drug Allergy Active ENCOUNTERS from 1956 to 2020-03-19 Encounter Location Date Provider Diagnosis [address] [address] 08 Mar, 021 Kimani Ann IMMUNIZATIONS Vaccine Route Administration Date [...] School Language: Question Answer Notes Languages spoken: [place]an Congregation: Question Answer Notes Congregation 21 [employer] Sexual Hx: Question Answer Notes Had sex [...] Notes Start Da te End Date Status Folic Acid 1 MG 1 tablet Orally Once a day for 28 Active Tamy Classic Plus Brief/XL _ 1 brief _ as needed for i ncontinence Dx: 788.33 for 30 day(s) Nov, Active Baclofen 10 MG as directed Orally four times daily Active AirDuo RespiClick 232/14 232-14 MCG/ACT 1 puff Inhalat ion Twice a day for 30 Days Active Cromolyn Sodium 20 MG/2ML 2 ml Inhalation Three times a day for 30 da ys Active Mag-Oxide 400 MG 1 tablet Orally Twice a day Active Aspirin 81 MG 1 tablet Orally Once a day for 28 Active Potassium chloride 20 meq 1 tab(s) orally Once a day for 28 Active Indapamide 2.5 MG 1 tablet by mouth Once a day for 28 Active Duloxetine HCl 60 MG 1 capsule Orally bid for 28 Active Magnesium Oxide 400 (240 Mg) MG TAKE ONE TABLET BY NELSON TH @8AM and TAKE ONE TABLET @8PM for 28 Active Reclast 5 MG/100ML as directed Intravenous Active Celebrex 200 MG 1 capsule with food Orally O nce a day as needed breakthrough pain for 28 Active Blood Glucose Test - one touch verio flex subcuta neously bid DX: E11.9 for 30 days Sep, Active Cyclobenzaprine HCl 10 MG 1 tab Three times a day as n eeded Orally 30 day(s) Orally three times daily for 30 Days Feb, Active Gabapentin 800 MG TAKE ONE TABLET BY MOUTH @8A M and TAKE ONE TABLET @12PM and TAKE ONE TABLET @8PM for 28 Acti ve MethylPREDNISolone 2 1 tablet Orally devery other day Active Proventil HFA 108 (90 Base) MCG/ACT 2 puffs Inhalation 4 times a day as needed for 25 Active Klonopin 0.5 MG 1 tablet by mouth Twice a day MDD: 2 Active Glimepiride 4 MG 1 tablet Orally AC BID for 30 days Active Gabapentin 800 MG 1 tablet Orally Three times a day for 28 Active Docusate Sodium 100 MG 2 capsules Orally bid for 28 Active Nexium 24HR 20 MG 2 capsules Orally every moring for 30 Days Active Januvia 100 MG TAKE ONE TABLET BY MOUTH @8AM for 28 Active Blood Glucose Test One touch as directed SQ Twice a day DX 250 for 90 days Active Escitalopram Oxalate 10 MG 1 tablet Orally Once a day for 30 days Active Senna Plus 8.6-50 MG 2 tablet in the evening as needed Orall y Once a day for 28 Active Underpads 1 as directed Daily for 30 day(s) July, Active Nystatin Powder 134835 UNIT 1 application to affected area Externally twice daily under juan breasts for 30 day(s) Active Ergocalciferol 77389 UNIT 1 capsule Orally every other week for 28 Active Glimepiride 2 MG 1 tablet Orally AC BID for 28 Active Levothyroxine Sodium 75 MCG 1 tablet every morning on an empty stomach Orally Once a day for 28 Active Rosuvastatin Calcium 40 MG 1 tablet Orally Once a day for 28 Active Magnesium Oxide 400 MG TAKE ONE TABLET BY MOUTH @8A M and TAKE ONE TABLET @8PM for 28 Active Voltaren 1 % as directed Transdermal Four times a day as needed to posterior knee for 30 Active Rozerem 8 mg 1 tablet at bedtime Orally Daily at bedtime as needed fo r 28 Active Sitagliptin Phosphate 100 MG 1 tablet Orally Once a day for 28 Active Amitriptyline HCl 25 MG 1 tab Orally at bedtime for 90 day(s) Dec, Active Metformin HCl 850 mg 1 tablet by mouth Twice a day for 28 Active PROCEDURES No Information RESULTS No Results REASON FOR VISIT high risk COVID vaccine eligible? MEDICAL (GENERAL) HISTORY Type Description Date Medical [...] instability-June 2010 normal nerve conduction studies bilateral extremities-[facility] Medical History anemia, iron deficiency Medical History [...] by Graciela Medical History R PE-dx at [facility]-CT A chest c "small pulmonary emboli to RU PA with areas of parenchymal disease suggestive of pulmonary infarction"- started in Xarelto 15 BID Medical History MRSA UTI-04/08/17 UCX >100K Medical History R distal femur comminuted fr acture sp mechanical fall sp IM otis placement-02/20/19 Dr. Gao-[facility] Surgical History laparoscopic cholecystectomy-Dr. Courtney January 2007 Surgical History EGD/colonoscopy-Dr. Varela-[place] ild chemical gastritis, tubular adenoma, negative small [...] trograde approach [address] Gao-[facility] 02/20/19 Hospitalization History hyperkalemia 9.3 with [...] - serial EK/T-I, telemetry 11/20- Hospitalization History Zmzuzh-bjgi-gr respiratory f ailure c desaturation to Sa)2 20% from same day surgery for R bunion surgery, then rehab at [facility] 06/25- Hospitalization History frequent falls-favoring 2 op iate overuse/misuse-CT cervical/head NAD/xray thoracic, LS, L hip NAD, stable CBCD, CMP, CIP/T-I, - telemetry, UDS + morphine, oxycodone; unresponsive episode requiring Narcan 0.8 to reverse 04/08-06/22 Hospitalization History mechanical fall sp R femur s p IM nail placement by Dr. Gao, tx [facility]BCs-[facility] 02/19- Hospitalization History P. mirabilis UTI [...] by mouth Twice a day for 28 Rozerem 8 mg 1 tablet at bedtime Orally Daily at bedtime as n eeded for 28 Voltaren 1 % as directed Transdermal Four times a day as needed to posterior knee for 30 Docusate Sodium 100 MG 2 capsules Orally bid for 28 Cyclobenzaprine HCl 10 MG 1 tab Three times a day as n eeded Orally 30 day(s) Orally three times daily for 30 Days Feb, Rosuvastatin Calcium 40 MG 1 tablet Orally Once a day for 28 Aspirin 81 MG 1 tablet Orally Once a day for 28 Magnesium Oxide 400 (240 Mg) MG TAKE ONE TABLET BY NELSON TH @8AM and TAKE ONE TABLET @8PM for 28 Nystatin Powder 631229 UNIT 1 application to affected area Externally twice daily under juan breasts for 30 day(s) Nexium 24HR 20 MG 2 capsules Orally every moring for 30 Days Magnesium Oxide 400 MG TAKE ONE TABLET BY MOUTH @8A M and TAKE ONE TABLET @8PM for 28 Potassium chloride 20 meq 1 tab(s) orally Once a day for 28 Escitalopram Oxalate 10 MG 1 tablet Orally Once a day for 30 day s Glimepiride 2 MG 1 tablet Orally AC BID for 28 Gabapentin 800 MG 1 tablet Orally Three times a day for 28 Celebrex 200 MG 1 capsule with food Orally O nce a day as needed breakthrough pain for 28 Gabapentin 800 MG TAKE ONE TABLET BY MOUTH @8A M and TAKE ONE TABLET @12PM and TAKE ONE TABLET @8PM for 28 Januvia 100 MG TAKE ONE TABLET BY MOUTH @8AM for 28 Senna Plus 8.6-50 MG 2 tablet in the evening as needed Orall y Once a day for 28 Indapamide 2.5 MG 1 tablet by mouth Once a day for 28 Duloxetine HCl 60 MG 1 capsule Orally bid for 28 AirDuo RespiClick 232/14 232-14 MCG/ACT 1 puff Inhalat ion Twice a day for 30 Days Next Appt Details Provider Name:Kimani Ann, 2020-07-03 1 1:15:00 AM, [address] [place], [address], Insurance Providers Payer Name Payer Address Payer Phone Insured Name Patient Relati onship to Insured Coverage Start Date Coverage End Date [facility] COMMUNITY PLAN [facility] [address] [facility] [phone] CASSIE ARTHUR self
--- OUTSIDE RECORDS SUMMARY | 2020-04-29 05:20 | CCD ---
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 Role Phone iKmani Ann Unavailable PROBLEMS Type Condition ICD9-CM Code AHB01-OG Code Onset Dates Condition S tatus SNOMED Code Notes Problem Hypothyroid E03.9 Active 67720101 Problem Hypertension I10 Active 44626154 Problem Vitamin D deficiency E55.9 Active 54767782 Problem Depression F32.9 Active 99422005 Problem Fibromyalgia M79.7 Active 354434976 Problem Insomnia G47.00 Active 250969964 Problem Breast cancer screening Z12.39 Active 72238843 8 Problem Essential tremor G25.0 Active 986012290 Problem Diastolic CHF I50.30 Active 768021624 Problem Diabetes mellitus without me ntion of complication, type II or unspecified type, not stated as uncontrolled 250.00 Ac tive 085451685 Problem Recurrent urinary tract infection N39.0 Active 504818092 Problem Impingement syndrome of both shoulders M75.41 A ctive 186034903 Problem Hyperlipidemia E78.5 Active 43540304 Problem Colon polyp K63.5 Active 42157138 Problem NICKI (obstructive sleep apnea) G47.33 Active 78 371142 Problem Pulmonary embolism I26.99 Active 04404741 Problem DJD (degenerative joint disease), cervical M50.30 Active 96832378 Problem Wrist fracture, left, sequela S62.102S Active 2 60335060 Problem Other disturbances of skin sensation R20.8 Act андрей 31561195 Problem DJD (degenerative joint disease), lumbar M47.816 Active 150214182 Problem Hyperalgesia R20.8 Active 40250512 Problem DM2 (diabetes mellitus, type 2) E11.9 Active 25117077 Problem Hypothyroidism, unspecified E03.9 Active 4093 0008 Problem Ataxia R27.0 Active 12537374 Problem Mixed hyperlipidemia E78.2 Active 179714592 Problem Asthma, severe persistent J45.50 Active 921412 000 Problem Constipation, chronic K59.09 Active 194537029 Problem Chronic pain syndrome G89.4 Active 600691585 Problem Oral candidiasis B37.0 Active 79357764 Problem Primary osteoarthritis of both knees M17.0 Act андрей 253257196 Problem Gastroesophageal reflux disease, esophagitis pre sence not specified K21.9 Active 174419641 Problem Menopausal and female climacteric states N95.1 Active 839475492 Problem Folic acid deficiency E53.8 Active 119841998 Problem Osteoporosis M81.0 Active 62199017 Problem Tibial plateau fracture, left S82.142A Active 2 9562967 Problem 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 Active 676973957 Problem Falls frequently R29.6 Active 644290241 Problem Primary osteoarthritis of right knee M17.11 Act андрей [id number] ALLERGIES Allergen (clinical drug ingredient) Drug/Non Drug Allergy do cumented on EMR Reaction Allergy Type Onset Date Status tequin pruritis Non Drug Allergy Active Zocor 10 Anaphylaxis Drug Allergy Active puneet sprinkles head ache Non Drug Allergy Active Vioxx (for allergy use only) bruising Drug Allergy Active ENCOUNTERS from 1956 to 2020-03-15 Encounter Location Date Provider Diagnosis [address] [address] Mar, 021 Kimani Ann IMMUNIZATIONS Vaccine Route [...] School Language: Question Answer Notes Languages spoken: Zambian Evangelical: Question Answer Notes Evangelical 21 Confucianism Sexual Hx: Question Answer Notes Had sex [...] for 30 day(s) July, Active Nystatin Powder 055442 UNIT 1 application to affected area Externally twice daily under juan breasts for 30 day(s) Active Ergocalciferol 70404 UNIT 1 capsule Orally every other week [...] Information RESULTS No Results REASON FOR VISIT refill? MEDICAL (GENERAL) HISTORY Type Description Date Medical [...] instability-June 2010 normal nerve conduction studies bilateral extremities-[facility] Medical History anemia, iron deficiency Medical History [...] by Graciela Medical History R PE-dx at [facility]-CT A chest c "small pulmonary emboli to RU PA with areas of parenchymal disease suggestive of pulmonary infarction"- started in Xarelto 15 BID Medical History MRSA UTI-04/08/17 UCX >100K Medical History R distal femur comminuted fr acture sp mechanical fall sp IM otis placement-02/20/19 Dr. Gao-[facility] Surgical History laparoscopic cholecystectomy-Dr. Courtney January 2007 Surgical History EGD/colonoscopy-Dr. Varela-m ild chemical gastritis, tubular adenoma, negative small [...] trograde approach [address] Gao-[facility] 02/20/19 Hospitalization History hyperkalemia 9.3 with mild [...] - serial EK/T-I, telemetry 11/20- Hospitalization History Rhqjfk-jppy-gu respiratory f ailure c desaturation to Sa)2 20% from same day surgery for R bunion surgery, then rehab at [facility] 06/25- Hospitalization History frequent falls-favoring 2 op iate overuse/misuse-CT cervical/head NAD/xray thoracic, LS, L hip NAD, stable CBCD, CMP, CIP/T-I, - telemetry, UDS + morphine, oxycodone; unresponsive episode requiring Narcan 0.8 to reverse 04/08-06/22 Hospitalization History mechanical fall sp R femur s p IM nail placement by Dr. Gao, tx [facility] 02/19- Hospitalization History P. mirabilis UTI c [...] ONE TABLET @8PM for 28 Nystatin Powder 686390 UNIT 1 application to affected area Externally [...] Name:Kimani Ann, 2020-07-03 1 1:15:00 AM, [address] [place], [address], Insurance Providers Payer Name Payer Address Payer Phone Insured Name Patient Relati onship to Insured Coverage Start Date Coverage End Date [facility] [address] [facility] [phone] CASSIE ARTHUR self
--- OUTSIDE RECORDS SUMMARY | 2020-04-29 05:20 | CCD ---
Author Author [facility] Organization 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 Role Phone Kimani Ann Unavailable PROBLEMS Type Condition ICD9-CM Code XON18-QV Code Onset Dates Condition S tatus SNOMED Code Notes Problem Hypothyroid E03.9 Active 29876420 Problem Hypertension I10 Active 84648106 Problem Vitamin D deficiency E55.9 Active 29025182 Problem Depression F32.9 Active 05315291 Problem Fibromyalgia M79.7 Active 096174109 Problem Insomnia G47.00 Active 790201208 Problem Breast cancer screening Z12.39 Active 46220015 8 Problem Essential tremor G25.0 Active 620060740 Problem Diastolic CHF I50.30 Active 554299945 Problem Diabetes mellitus without me ntion of complication, type II or unspecified type, not stated as uncontrolled 250.00 Ac tive 551475285 Problem Recurrent urinary tract infection N39.0 Active 196925009 Problem Impingement syndrome of both shoulders M75.41 A ctive 815387616 Problem Hyperlipidemia E78.5 Active 53555884 Problem Colon polyp K63.5 Active 96154836 Problem NICKI (obstructive sleep apnea) G47.33 Active 78 885569 Problem Pulmonary embolism I26.99 Active 81857688 Problem DJD (degenerative joint disease), cervical M50.30 Active 31184574 Problem Wrist fracture, left, sequela S62.102S Active 2 05621409 Problem Other disturbances of skin sensation R20.8 Act андрей 84065885 Problem DJD (degenerative joint disease), lumbar M47.816 Active 357275477 Problem Hyperalgesia R20.8 Active 55808248 Problem DM2 (diabetes mellitus, type 2) E11.9 Active 22576745 Problem Hypothyroidism, unspecified E03.9 Active 4093 0008 Problem Ataxia R27.0 Active 05554177 Problem Mixed hyperlipidemia E78.2 Active 377430723 Problem Asthma, severe persistent J45.50 Active 518995 000 Problem Constipation, chronic K59.09 Active 645149063 Problem Chronic pain syndrome G89.4 Active 829096655 Problem Oral candidiasis B37.0 Active 82881900 Problem Primary osteoarthritis of both knees M17.0 Act андрей 940887988 Problem Gastroesophageal reflux disease, esophagitis pre sence not specified K21.9 Active 934597343 Problem Menopausal and female climacteric states N95.1 Active 739298180 Problem Folic acid deficiency E53.8 Active 209275984 Problem Osteoporosis M81.0 Active 94645460 Problem Tibial plateau fracture, left S82.142A Active 2 8205406 Problem 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 Active 844663879 Problem Falls frequently R29.6 Active 109889868 Problem Primary osteoarthritis of right knee M17.11 Act андрей [id number] ALLERGIES Allergen (clinical drug ingredient) Drug/Non Drug Allergy do cumented on EMR Reaction Allergy Type Onset Date Status tequin pruritis Non Drug Allergy Active Zocor 10 Anaphylaxis Drug Allergy Active puneet sprinkles head ache Non Drug Allergy Active Vioxx (for allergy use only) bruising Drug Allergy Active ENCOUNTERS from 1955 to 2020-02-14 Encounter Location Date Provider Diagnosis [address] [address] Feb, 020 Kimani Ann IMMUNIZATIONS Vaccine Route [...] Language: Question Answer Notes Languages spoken: Wolof Amish: Question Answer Notes [employer] Sexual Hx: Question Answer Notes Had sex [...] Notes Start Da te End Date Status Cyclobenzaprine HCl 10 MG 1 tab Three times a day as n eeded Orally 30 day(s) Orally three times daily for 30 Days Feb, Active Magnesium Oxide 400 (240 Mg) MG TAKE ONE TABLET BY NELSON TH @8AM and TAKE ONE TABLET @8PM for 28 Active Reclast 5 MG/100ML as directed Intravenous Active Aspirin 81 MG 1 tablet Orally [...] day as needed for 25 Active Ergocalciferol 45604 UNIT 1 capsule Orally every other week for 28 Active Glimepiride 4 MG 1 tablet Orally AC BID for 30 days Active AirDuo RespiClick 232/14 232-14 MCG/ACT 1 puff Inhalat ion Twice a day for 30 Days Active Levothyroxine Sodium 75 MCG 1 tablet every morning on an empty stomach Orally Once a day for 28 Active Rosuvastatin Calcium 40 MG 1 tablet Orally Once a day for 28 Active Duloxetine HCl 60 MG 1 capsule Orally bid for 28 Active Voltaren 1 % as directed Transdermal Four times a day as needed to posterior knee for 12 Active Senna Plus 8.6-50 MG 2 tablet in the evening as needed Orall y Once a day for 28 Active Folic Acid 1 MG 1 tablet Orally Once a day for 28 Active Nystatin Powder 379908 UNIT 1 application to affected area Externally twice daily under juan breasts for 30 day(s) Active Cromolyn Sodium 20 MG/2ML 2 ml Inhalation Three times a day for 30 da ys Active Mag-Oxide 400 MG 1 tablet Orally Twice a day Active Docusate Sodium 100 MG 2 capsules Orally bid for 28 Active Escitalopram Oxalate 10 MG 1 tablet Orally Once a day for 28 Active Januvia 100 MG TAKE ONE TABLET BY MOUTH @8AM for 28 Active Glimepiride 2 MG 1 tablet Orally AC BID for 28 Active Gabapentin 800 MG 1 tablet Orally Three times a day for 28 Active Magnesium Oxide 400 MG TAKE ONE TABLET BY MOUTH @8A M and TAKE ONE TABLET @8PM for 28 Active Sitagliptin Phosphate 100 MG 1 tablet Orally Once a day for 28 Active Amitriptyline HCl 25 MG 1 tab Orally at bedtime for 90 day(s) Dec, Active Metformin HCl 850 mg 1 tablet by mouth Twice a day for 28 Active PROCEDURES No Information RESULTS No Results REASON FOR VISIT Cyclobenzaprine 5MG MEDICAL (GENERAL) HISTORY Type Description Date Medical [...] carpal tunnel syndrome/ - RF/CCP/NETTE/ ML DJD, ircardo L5/S1 s compression Medical History T2DM NID [...] instability-June 2010 normal nerve conduction studies bilateral extremities-[facility] Medical History anemia, iron deficiency Medical [...] by Graciela Medical History R PE-dx at [facility]-CT A chest c "small pulmonary emboli to RU PA with areas of parenchymal disease suggestive of pulmonary infarction"- started in Xarelto 15 BID Medical History MRSA UTI-04/08/17 UCX >100K Medical History R distal femur comminuted fr acture sp mechanical fall sp IM otis placement-02/20/19 Dr. Gao-[facility] Surgical History laparoscopic cholecystectomy-Dr. Courtney January [...] approach [address] Gao-[facility] 02/20/19 Hospitalization History hyperkalemia 9.3 with [...] - serial EK/T-I, telemetry 11/20- Hospitalization History [id number]-[id number]-[id number] respiratory f ailure c desaturation to Sa)2 20% from same day surgery for R bunion surgery, then rehab at [facility] 06/25- Hospitalization History frequent falls-favoring 2 op iate overuse/misuse-CT cervical/head NAD/xray thoracic, LS, L hip NAD, stable CBCD, CMP, CIP/T-I, - telemetry, UDS + morphine, oxycodone; unresponsive episode requiring Narcan 0.8 to reverse 04/08-06/22 Hospitalization History mechanical fall sp R femur s p IM nail placement by Dr. Gao, tx [facility] 02/19- Hospitalization History P. mirabilis UTI [...] by mouth Twice a day for 28 Magnesium Oxide 400 MG TAKE ONE TABLET BY MOUTH @8A M and TAKE ONE TABLET @8PM for 28 Gabapentin 800 MG 1 tablet Orally Three times a day for 28 AirDuo RespiClick 232/14 232-14 MCG/ACT 1 puff Inhalat ion Twice a day for 30 Days Magnesium Oxide 400 (240 Mg) MG TAKE ONE TABLET BY NELSON TH @8AM and TAKE ONE TABLET @8PM for 28 Januvia 100 MG TAKE ONE TABLET BY MOUTH @8AM for 28 Voltaren 1 % as directed Transdermal Four times a day as needed to posterior knee for 12 Gabapentin 800 MG TAKE ONE TABLET BY MOUTH @8A M and TAKE ONE TABLET @12PM and TAKE ONE TABLET @8PM for 28 Potassium chloride 20 meq 1 tab(s) orally Once a day for 28 Rosuvastatin Calcium 40 MG 1 tablet Orally Once a day for 28 Glimepiride 2 MG 1 tablet Orally AC BID for 28 Celebrex 200 MG 1 capsule with food Orally O nce a day as needed breakthrough pain for 28 Senna Plus 8.6-50 MG 2 tablet in the evening as needed Orall y Once a day for 28 Docusate Sodium 100 MG 2 capsules Orally bid for 28 Duloxetine HCl 60 MG 1 capsule Orally bid for 28 Nexium 24HR 20 MG TAKE TWO CAPSULES BY MOUTH @8AM for 28 Indapamide 2.5 MG 1 tablet by mouth Once a day for 28 Cyclobenzaprine HCl 10 MG 1 tab Three times a day as n eeded Orally 30 day(s) Orally three times daily for 30 Days Feb, Aspirin 81 MG 1 tablet Orally Once a day for 28 Nystatin Powder 818456 UNIT 1 application to affected area Externally twice daily under juan breasts for 30 day(s) Rozerem 8 mg 1 tablet at bedtime Orally Daily at bedtime as n eeded for 28 Insurance Providers Payer Name Payer Address Payer Phone Insured Name Patient Relati onship to Insured Coverage Start Date Coverage End Date [facility] [employer] [address] [facility] [id number] CASSIE ARTHUR self
--- OUTSIDE RECORDS SUMMARY | 2020-04-29 05:20 | CCD | Continuity of Care Document ---
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 AUTM [phone] Problems Active Problems Provider Date Uncomplicated severe persistent asthma Andrea Wadsworth DO Onset: 07/04/2019 Obstructive sleep apnea syndrome Andrea Wadsworth DO Onset: 07/04/2019 Long-term current use of systemic steroid Andrea Wadsworth DO Onset: 07/04/2019 Long-term current use of inhaled steroid Nabeel Vitale O Onset: 07/04/2019 Social History Type Date Description Comments Sex Unknown ETOH Use Never used alcohol Tobacco Use Start: Unknown Patient has never smoked Smoking Status Reviewed: 07/04/19 Patient has never smoked Allergies, Adverse Reactions, Alerts Active Allergies Reaction Severity Comments Date TeQuin 08/26/2010 Gonzalo-24 spinkles 08/26/2010 Xanax severe reaction coma 011 Rosuvastatin Calcium 018 Zocor 09/06/2017 Vioxx 09/06/2017 Medications Active Medications SIG Qnty Indications Ordering Provide r Date Albuterol Sulfate (2 .5mg/3ML) 0.083% Nebulizer 1 vial four times a day as needed 360ml J45.50 Andrea Wadsworth DO 07/12/2019 Senna Plus 8.6-50mg Tablets Take 2 tabs po once daily. Unknown Baclofen 10mg Tablets take 1 tAB tid daily as needed for back spasms/pain. Unknown Colace 100mg Capsules 1 tab by mouth twice a day prn Unknown Breo Ellipta 200-25mcg/Inh Aerosol 1 inhalation every day 60units J45.50 Andrea Wadsworth, DO Rozerem 8mg Tablets 1 by mouth every night at bedtime Unknown Lexapro 10mg Tablets 1 by mouth every day Unknown Metformin HCL 850mg Tablets 1 by mouth twice a day Unknown Gabapentin 800mg Tablets 1 by mouth three times a day Unknown Lipitor 40mg Tablets 1 by mouth every day Unknown Folic Acid 1mg Tablets 1 by mouth every day Unknown Mag-Oxide 800mg Tablets bid Unknown Potassium Chloride 20Meq Tab daily Unknown Celebrex 200mg Capsules daily Unknown Ergocalciferol 12490Jjmj Capsules 1 every other week Unknown Indapamide 2.5mg Tablets jose y Unknown Aspirin 81mg Chewtabs daily Unknown Multivitamins Tablets 1 po q d Unknown Methylprednisolone 2mg Tablets daily Unknown Pulmicort 0.5mg/2ML Suspension tid 90Respule Unknown Ventolin HFA 108(90Base) mcg/ac Ae rosol 2 puffs q4 hour prn with spacer 3units Unknown Synthroid 75mcg Tablets daily Unknown Ferrous Sulfate 325(65Fe) mg Table ts 1 po bid Unknown Nexium 40mg Capsules DR 40 mg po daily 3month Unknown Januvia 100mg Tablets 1 po qd Unknown Cymbalta 60mg Caps DR Part 1 po qd Unknown Nortriptyline HCL 25mg Capsules daily Unknown Flexeril 5mg Tablets 15 MG ti d 20tabs Unknown Trazodone HCL 100mg Tablets 2 at hs Unknown Immunizations Description No Information Available Vital Signs Date Vital Result Comment 02/11/2020 8:11am Height 66 inches 5'6" [place] Body Weight 130 lb 07/04/2019 9:52am BP Systolic 124 mmHg BP Diastolic 82 mmHg Heart Rate 89 /min O2 % BldC Oximetry 97 % Body Temperature 97.1 F Height 66 inches 5'6" Weight 218.00 lb BMI (Body Mass Index) 35.2 kg/m2 [place] Body Weight 130 lb Weight 98.885 kg BSA (Body Surface Area) 2.07 m2 Results Description No Information Available Procedures Description No Information Available Medical Devices Description No Information Available Encounters Description No Information Available Assessments Description No Information Available Plan of Treatment Future Appointment(s):* 03/12/2020 10:00 am - Andrea Wadsworth DO at [facility] Pulmonary/Thoracic * 02/18/2020 2:30 pm - TOSHIA Castillo at [facility] ENT/GI Practice 07/04/2019 - Andrea Wadsworth DO* J45.50 Severe persistent asthma, uncomplicated * Z79.51 penitentiary (current) use of inhaled steroids * Z79.52 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 It is unclear to me what dose of oral steroids she is taking, and while oral steroid therapy is less than optimal, her difficulties with compliance make other alternatives less favorable. ~ In regard to her obstructive sleep apnea syndrome, I will address this issue to her primary care provider. Given her multiple comorbidities, I believe she is unlikely to comply with CPAP, as she has lost the apparatus twice in the past. Nonetheless, this is no doubt contributing to some extent to her overall ill health. ~ We will schedule a follow-up here in six months to re-evaluate her asthma, and update a spirometry flow volume loop study at that time. * Follow up:* Follow up in six months with Spirometry/FVL. Functional Status Description No Information Available Mental Status Description No Information Available Referrals Description No Information Available
--- OUTSIDE RECORDS SUMMARY | 2020-04-29 05:20 | CCD ---
Author Organization Unknown Address [address] [place] [address] Phone [phone] Care Team Providers Care Catering Barista Name Role Phone IRLANDA LONGORIA MD 3 [phone] Allergies Code Code System Name Reaction Severity Status Onset Rosuvastatin Calcium Active 06/10/2014 Tequin Active 06/10/2014 77140 RxNorm Theophylline Active 06/11/19 15 Vioxx Active 06/10/2014 650243 RxNorm Zocor Active 06/10/2014 Sulfa (Sulfonamide Antibiotics) Chest Pain Moderate Active Notes: Some allergies listed in Document s: #[id number], #[id number] could not be added to this patient's chart. Please review these documents and add these allergies to the patient's chart manually as needed. Medications Name Status Start Date Stop Date acetaminophen 500 mg tablet TAKE TWO TABLETS BY MOUTH EVERY EIGHT HOURS NEEDED FOR PAIN Active Not available albuterol sulfate 2.5 mg/3 mL (0.083 %) solution for nebulization INHALE CONTENTS OF 1 VIAL VIA NEBULIZER FOUR TIMES A DAY NEEDED Active Not available albuterol sulfate HFA 90 mcg/actuation aerosol inhaler Active Not available alendronate 70 mg tablet Completed 018 alogliptin 25 mg tablet Active Not avai lable alprazolam 1 mg tablet Completed 0 amitriptyline 25 mg tablet Active Not a vailable amoxicillin 500 mg-potassium clavulanate 125 mg tablet TAKE ONE TABLET BY MOUTH EVERY TWELVE HOURS Completed 02/14/2020 Arnuity Ellipta 200 mcg/actuation powder for inhalation Complete d 02/03/2018 aspirin 81 mg chewable tablet Active No t available aspirin 81 mg tablet,delayed release Completed 08/14/2018 atorvastatin 80 mg tablet Active Not av ailable baclofen 10 mg tablet TAKE ONE TABLET BY MOUTH am and noon and two tabs at bedtime as needed Active Not available Breo Ellipta 200 mcg-25 mcg/dose powder for inhalation Active Not available cefdinir 300 mg capsule Completed 02/14/20 20 cefuroxime axetil 500 mg tablet Completed 02/03/2018 celecoxib 200 mg capsule Active Not geraldine ilable ciprofloxacin 250 mg [...] TAKE ONE TABLET @8PM Active Not available cyclobenzaprine 5 mg tablet Active Not available diclofenac 1 % topical gel APPLY TO THE AFFECTED KNEE FOUR TIMES DAILY NEEDED Active Not available DOK 100 mg capsule Active Not available doxycycline monohydrate 100 mg capsule TAKE ONE CAPSULE BY MOUTH TWICE DAILY FOR SEVEN DAYS Completed 02/14/2020 duloxetine 60 mg capsule,delayed release Active Not available enoxaparin 30 mg/0.3 mL subcutaneous syr travis INJECT 0.3 MILLILITERS SUBCUTANEOUSLY EVERY 12 HOURS FOR TWO WEEKS Completed 02/14/2020 enoxaparin 40 mg/0.4 mL subcutaneous syringe Active Not available escitalopram 10 mg tablet Active Not av ailable esomeprazole magnesium 20 mg capsule,delayed release Active Not available estradiol 0.01% (0.1 mg/gram) vaginal cream Completed 02/14/2020 fluticasone 232 mcg-salmeterol 14 mcg/actuation breath activated powdr Active Not available folic acid 1 tablet daily Active Not available folic acid 1 mg tablet Active Not avail able gabapentin 800 mg tablet Active Not geraldine ilable GaviLyte-N 420 gram oral solution Active Not available glimepiride 1 mg tablet Active Not avai lable glimepiride 2 mg tablet Active Not avai lable glimepiride 4 mg tablet Active Not avai lable global alcohol prep ease pads 70 %pads Active Not available hydrocodone 5 mg-acetaminophen 325 mg tablet Completed 08/14/2018 indapamide 2.5 mg tablet Active Not geraldine ilable Januvia 100 mg tablet Active Not availa ble levothyroxine 75 mcg tablet Active Not available magnesium oxide 400 mg (241.3 mg magnesium) tablet Active Not available Medrol 2 mg tablet 1 tablet every other day Completed 02/14/2020 metformin 850 mg tablet Active Not avai lable methylprednisolone 4 mg tablet 1 tab daily [...] ondansetron HCl 4 mg tablet Completed 08/05 PinshapeTouch Ultra Blue Test Strip Active N ot [...] Completed 08/14/2018 potassium chloride ER 20 mEq tablet,extended release(part/cryst) Active Not available prednisone 20 mg tablet TAKE ONE TABLET BY MOUTH ONCE DAILY FOR FIVE DAYS Completed 02/14/2020 ramelteon 8 mg tablet Active Not availa ble rosuvastatin 40 mg tablet Active Not av ailable senna 8.6 mg tablet 2 tabs twice daily Active Not available Stimulant Laxative Plus 8.6 mg-50 mg tablet Active Not available sulfamethoxazole 400 mg-trimethoprim 80 mg tablet Completed 02/03/2018 sulfamethoxazole 800 mg-trimethoprim 160 mg tablet Completed 02/03/2018 tamsulosin 0.4 mg capsule Active Not av ailable tramadol 50 mg tablet TAKE ONE TABLET BY MOUTH EVERY 6 HOURS NEEDED FOR PAIN MAX DAILY DOSE FOUR TABLETS Completed 02/14/2020 trazodone 100 mg tablet Completed 02/04/20 18 Vitamin D2 1,250 mcg (50,000 unit) capsule Active Not available Xarelto 20 mg tablet Completed 02/03/2018 zolpidem 5 mg tablet Completed 02/03/2018 Notes: Some medications listed in Docume nts: #[id number], #[id number] could not be added to this patient's [...] Inflammation of Sacroiliac Joint Active 08/17/2017 Procedures Notes: L5-S1 laminectomy [id number] by Dr. 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 [facility] [address] [place] [address] Past Encounters 02/14/2020 Inflammation of Sacroiliac Joint; Cervico-occipital Neuralgia; Cervical Radiculopathy; Displacement of Cervical Intervertebral Disc without Myelopathy; Degeneration of Cervical Intervertebral Disc; Cervical Spondylosis without Myelopathy; Myofascial Pain; Lumbar Post-laminectomy Syndrome; Degeneration of Lumbar Intervertebral Disc; Displacement of Lumbar Intervertebral Disc without Myelopathy; Spondylosis without Myelopathy; Lumbosacral Spondylosis without Myelopathy; Lumbar Radiculopathy Mar Macedovicki Sarah, SENIOR EXECUTIVE ASSISTANT: [id number] [address], [facility] [place] [address], Ph. 12/03/2019 Inflammation of Sacroiliac Joint; Cervico-occipital Neuralgia; Cervical Radiculopathy; Displacement of Cervical Intervertebral Disc without Myelopathy; Degeneration of Cervical Intervertebral Disc; Cervical Spondylosis without Myelopathy; Myofascial Pain; Lumbar Post-laminectomy Syndrome; Degeneration of Lumbar Intervertebral Disc; Displacement of Lumbar Intervertebral Disc without Myelopathy; Spondylosis without Myelopathy; Lumbosacral Spondylosis without Myelopathy; Lumbar Radiculopathy Oleg Ling MD: [id number] [address], [place] [address], Ph. 11/28/2019 Pre-surgery Testing; Viral Screening Oleg Ling MD: [id number] [address], [place] [address], Ph. [phone] 11/23/2019 Pre-surgery Testing; Viral Screening Oleg Ling MD: [id number] [address], [place], [place] [address], Ph. [phone] 11/22/2019 Inflammation of Sacroiliac Joint; Cervico-occipital Neuralgia; Cervical Radiculopathy; Displacement of Cervical Intervertebral Disc without Myelopathy; Degeneration of Cervical Intervertebral Disc; Cervical Spondylosis without Myelopathy; Myofascial Pain; Lumbar Post-laminectomy Syndrome; Degeneration of Lumbar Intervertebral Disc; Displacement of Lumbar Intervertebral Disc without Myelopathy; Spondylosis without Myelopathy; Lumbosacral Spondylosis without Myelopathy; Lumbar Radiculopathy Mar Cassiapapi Sarah, SENIOR EXECUTIVE ASSISTANT: [id number] [facility] [address], [facility] [place] [address], Ph. 11/07/2019 Inflammation of Sacroiliac Joint; Cervico-occipital Neuralgia; Cervical Radiculopathy; Displacement of Cervical Intervertebral Disc without Myelopathy; Degeneration of Cervical Intervertebral Disc; Cervical Spondylosis without Myelopathy; Myofascial Pain; Lumbar Post-laminectomy Syndrome; Degeneration of Lumbar Intervertebral Disc; Displacement of Lumbar Intervertebral Disc without Myelopathy; Spondylosis without Myelopathy; Lumbosacral Spondylosis without Myelopathy; Lumbar Radiculopathy Oleg Ling MD: [id number] [address], [place] [address], Ph. 11/02/2019 Pre-surgery Testing; Viral Screening Oleg Ling MD: [id number] [facility] [address], [facility] [place] [address], Ph. [phone] 10/24/2019 Inflammation of Sacroiliac Joint; Cervico-occipital Neuralgia; Cervical Radiculopathy; Displacement of Cervical Intervertebral Disc without Myelopathy; Degeneration of Cervical Intervertebral Disc; Cervical Spondylosis without Myelopathy; Myofascial Pain; Lumbar Post-laminectomy Syndrome; Degeneration of Lumbar Intervertebral Disc; Displacement of Lumbar Intervertebral Disc without Myelopathy; Spondylosis without Myelopathy; Lumbosacral Spondylosis without Myelopathy; Lumbar Radiculopathy Mar Smith NP: [id number] [address], [facility] [address], Ph. 01/01/2019 Inflammation of Sacroiliac Joint; Cervico-occipital Neuralgia; Cervical Radiculopathy; Displacement of Cervical Intervertebral Disc without Myelopathy; Degeneration of Cervical Intervertebral Disc; Cervical Spondylosis without Myelopathy; Myofascial Pain; Lumbar Post-laminectomy Syndrome; Degeneration of Lumbar Intervertebral Disc; Displacement of Lumbar Intervertebral Disc without Myelopathy; Spondylosis without Myelopathy; Lumbosacral Spondylosis without Myelopathy; Lumbar Radiculopathy Mar Smith NP: [id number] [address], [facility] [address], Ph. 11/15/2018 Cervical Radiculopathy; Displacement of Cervical Intervertebral Disc without Myelopathy; Degeneration of Cervical Intervertebral Disc; Cervical Spondylosis without Myelopathy; Myofascial Pain; Lumbar Post-laminectomy Syndrome; Degeneration of Lumbar Intervertebral Disc; Displacement of Lumbar Intervertebral Disc without Myelopathy; Spondylosis without Myelopathy; Lumbosacral Spondylosis without Myelopathy; Lumbar Radiculopathy; Inflammation of Sacroiliac Joint; Cervico-occipital Neuralgia Oleg Ling MD: [id number] [address], [place] [address], Ph. 11/01/2018 Lumbar Post-laminectomy Syndrome; Lumbar Radiculopathy; Degeneration of Lumbar Intervertebral Disc; Displacement of Lumbar Intervertebral Disc without Myelopathy; Inflammation of Sacroiliac Joint; Cervico-occipital Neuralgia; Cervical Radiculopathy; Displacement of Cervical Intervertebral Disc without Myelopathy; Degeneration of Cervical Intervertebral Disc; Cervical Spondylosis without Myelopathy; Myofascial Pain; Spondylosis without Myelopathy; Lumbosacral Spondylosis without Myelopathy Oleg Ling MD: [id number] [address], Ph. 10/03/2018 Inflammation of Sacroiliac Joint; Cervico-occipital Neuralgia; Cervical Radiculopathy; Displacement of Cervical Intervertebral Disc without Myelopathy; Degeneration of Cervical Intervertebral Disc; Cervical Spondylosis without Myelopathy; Myofascial Pain; Lumbar Post-laminectomy Syndrome; Degeneration of Lumbar Intervertebral Disc; Displacement of Lumbar Intervertebral Disc without Myelopathy; Spondylosis without Myelopathy; Lumbosacral Spondylosis without Myelopathy; Lumbar Radiculopathy Mar Smith NP: [id number] [address], Ph. 09/01/2018 Cervical Spondylosis without Myelopathy; Degeneration of Cervical Intervertebral Disc; Displacement of Cervical Intervertebral Disc without Myelopathy; Inflammation of Sacroiliac Joint; Cervico-occipital Neuralgia; Cervical Radiculopathy; Myofascial Pain; Lumbar Post-laminectomy Syndrome; Degeneration of Lumbar Intervertebral Disc; Displacement of Lumbar Intervertebral Disc without Myelopathy; Spondylosis without Myelopathy; Lumbosacral Spondylosis without Myelopathy; Lumbar Radiculopathy Oleg Ling MD: [id number] [address], Ph. 08/31/2018 Inflammation of Sacroiliac Joint; Cervico-occipital Neuralgia; Cervical Radiculopathy; Displacement of Cervical Intervertebral Disc without Myelopathy; Degeneration of Cervical Intervertebral Disc; Cervical Spondylosis without Myelopathy; Myofascial Pain; Lumbar Post-laminectomy Syndrome; Degeneration of Lumbar Intervertebral Disc; Displacement of Lumbar Intervertebral Disc without Myelopathy; Spondylosis without Myelopathy; Lumbosacral Spondylosis without Myelopathy; Lumbar Radiculopathy Oleg Ling MD: [id number] [facility] [address], [place] [address], Ph. 08/14/2018 Neck Pain; Inflammation of Sacroiliac Joint; Cervico-occipital Neuralgia; Cervical Radiculopathy; Displacement of Cervical Intervertebral Disc without Myelopathy; Degeneration of Cervical Intervertebral Disc; Cervical Spondylosis without Myelopathy; Myofascial Pain; Lumbar Post-laminectomy Syndrome; Degeneration of Lumbar Intervertebral Disc; Displacement of Lumbar Intervertebral Disc without Myelopathy; Spondylosis without Myelopathy; Lumbosacral Spondylosis without Myelopathy; Lumbar Radiculopathy Mar Smith NP: [id number] [facility] [address], [facility] [address], Ph. 02/03/2018 Inflammation of Sacroiliac Joint; Cervico-occipital Neuralgia; Cervical Radiculopathy; Displacement of Cervical Intervertebral Disc without Myelopathy; Degeneration of Cervical Intervertebral Disc; Cervical Spondylosis without Myelopathy; Myofascial Pain; Lumbar Post-laminectomy Syndrome; Degeneration of Lumbar Intervertebral Disc; Displacement of Lumbar Intervertebral Disc without Myelopathy; Spondylosis without Myelopathy; Lumbosacral Spondylosis without Myelopathy; Lumbar Radiculopathy Oleg Ling MD: [id number] [facility] [address], [facility] [address], Ph. Social History Tobacco Smoking Status Never [...]
--- OUTSIDE RECORDS SUMMARY | 2020-04-29 05:20 | CCD | Continuity of Care Document ---
Author Author Trini WADSWORTH DO Organization Unknown Address [address] [place] [address] Phone [phone] Care Team Providers Care Transportation Lead Name Role Phone Kimani Ann M.D. AUTM [phone] Problems Active Problems Provider Date Uncomplicated severe [...] Patient has never smoked Smoking Status Reviewed: 03/12/20 Patient has never smoked Allergies, Adverse Reactions, Alerts Active Allergies Reaction Severity Comments Date TeQuin 08/26/2010 Gonzalo-24 spinkles 08/26/2010 Xanax severe reaction coma 011 Rosuvastatin Calcium 018 Zocor 09/06/2017 Vioxx 09/06/2017 Medications Active Medications SIG Qnty Indications Ordering Provide r Date Albuterol Sulfate (2 .5mg/3ML) 0.083% Nebulizer 1 vial four times a day as needed 360ml J45.50 Andrea Wadsworth DO 07/12/2019 Amitriptyline HCL 25mg Tablets Take One Tablet By Mouth @8PM Unknown Senna Plus 8.6-50mg Tablets Take 2 tabs po once daily. Unknown Baclofen 10mg Tablets 1 tab by mouth four times a day as needed Unknown Colace 100mg Capsules 1 tab by [...] day Unknown Folic Acid 1mg Tablets 1 tab by mouth every day Unknown Mag-Oxide 800mg Tablets 1 tab by mouth twice a day Unknown Potassium Chloride 20Meq Tab 1 tab by mouth every day Unknown Celebrex 200mg Capsules 1 tab by mouth every day Unknown Ergocalciferol [id number] Capsules 1 every other week Unknown Indapamide 2.5mg Tablets 1 tab by mouth every day Unknown Aspirin 81mg Chewtabs 1 tab by mouth every day Unknown Multivitamins Tablets 1 tab by mouth every day Unknown Methylprednisolone 2mg Tablets 1 tab by mouth every day Unknown Pulmicort 0.5mg/2ML Suspension 1 vial via nebulizer three times a day 90Respule Unknown Ventolin HFA 108(90Base) mcg/ac Ae rosol 2 puffs q4 hour prn with spacer 3units Unknown Synthroid 75mcg Tablets 1 tab by mouth every day Unknown Ferrous Sulfate 325(65Fe) mg Table ts 1 tab by mouth twice a day Unknown Nexium 40mg Capsules DR 1 tab by mouth every day 3month Unknown Januvia 100mg Tablets 1 tab by mouth every day Unknown Cymbalta 60mg Caps DR Part 1 tab by mouth every day Unknown Flexeril 5mg Tablets 3 tabs by mouth three times a day 20tabs Unknown Immunizations Description No Information Available Vital Signs Date Vital Result Comment 03/12/2020 10:11am BP Systolic 126 mmHg BP Diastolic 76 mmHg Heart Rate 88 /min O2 % BldC Oximetry 98 % Room Air Height 66 inches 5'6" Weight 229.00 lb BMI (Body Mass Index) 37.0 kg/m2 [facility] Body Weight 130 lb Weight 103.874 kg BSA (Body Surface Area) 2.12 m2 02/11/2020 8:11am Height 66 inches 5'6" [facility] Body Weight 130 lb Results Test Acquired Date Facility Test Result H/L Range Note FVL/Maurilio 03/12/2020 [facility] SEE IMAGE FVC-Pred 3.47 L FVC-Pre 2.54 L FVC-%Pred-Pre 73 L FVC-LLN 2.73 L Fev1-Pred 2.67 L Fev1-Pre 1.92 L Fev1-%Pred-Pre 72 L Fev1-LLN 2.04 L Fev6-Pred 3.34 L Fev6-Pre 2.51 L Fev6-%Pred-Pre 75 L Fev6-LLN 2.62 L Oja9izn-Dryg 77 % Ybo6qta-Zqn 76 % Bgu3gai-%Pred-Pre 97 % Hmo8pku-UPJ 68 % Gjl4qiw-Oiln 96 % Tvf6gmm-Ypd 99 % Bvu5vwe-%Pred-Pre 102 % FEFMax-Pred 6.43 L/E/sec FEFMax-Pre 5.72 L/E/sec FEFMax-%Pred-Pre 88 L/E/sec FEFMax-LLN 4.61 L/E/sec Uuh6976-Jwoc 2.34 L/E/sec Sgj0123-Sib 1.46 L/E/sec Xyn9973-%Pred-Pre 62 L/E/sec Hqc4890-KVB 1.02 L/E/sec ExpTime-Pre 7.33 sec Sgb4qby4-Ikgc 80 % Ulj5bzk8-Drj 76 % Kot4rud8-%Pred-Pre 95 % Bqq9doy7-YGX 71 % Procedures Description No Information Available Medical Devices Description No Information Available Encounters Type Date Location Provider Dx Diagnosis Office Visit 03/12/2020 10:00a [facility] paige Wadsworth DO J45.50 Severe persistent asthma, un complicated Z79.51 [facility] (current) use of i nhaled steroids Assessments Date Code Description Provider 03/12/2020 J45.50 Severe persistent asthma, uncomp licated Andrea Wadsworth, 03/12/2020 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
--- OUTSIDE RECORDS SUMMARY | 2020-04-29 05:20 | CCD | Continuity of Care Document ---
Author Author Trini WADSWORTH DO Organization Unknown Address [address] [place] [address] Phone [phone] Care Team Providers Care Health And Safety Consultant Name Role Phone Kimani Ann M.D. AUTM [phone] Problems Active Problems Provider Date Uncomplicated severe [...] Unknown Celebrex 200mg Capsules daily Unknown Ergocalciferol [id number] Capsules 1 every other week Unknown Indapamide [...] Comment 02/11/2020 8:11am Height 66 inches 5'6" [place] Body Weight 130 lb 07/04/2019 9:52am BP Systolic 124 mmHg BP Diastolic 82 mmHg Heart Rate 89 /min O2 % BldC Oximetry 97 % Body Temperature 97.1 F Height 66 inches 5'6" Weight 218.00 lb BMI (Body Mass Index) 35.2 kg/m2 [place] Body Weight 130 lb Weight 98.885 kg BSA (Body Surface Area) 2.07 m2 Results Description No Information Available Procedures Description No Information Available Medical Devices Description No Information Available Encounters Description No Information Available Assessments Description No Information Available Plan of Treatment 07/04/2019 - Andrea Wadsworth, * J45.50 Severe persistent asthma, uncomplicated * Z79.51 group home (current) use of inhaled steroids * 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
--- OUTSIDE RECORDS SUMMARY | 2020-04-29 05:22 | CCD ---
Author Author [facility] Organization [facility] Address Unknown Phone Unavailable Care Team Providers Care Table Cover Folder Name Role Phone Sarah Chapa MD Unavailable Unavailable Sarah Chapa MD Unavailable Unavailable Sarah Chapa MD Unavailable Unavailable Sarah Chapa MD Unavailable Unavailable Sarah Chapa MD Unavailable Unavailable Chapa, Sarah Aburto MD Unavailable Unavailable Chapa, Sarah Aburto MD Unavailable Unavailable Chapa, Sarah Aburto MD Unavailable Unavailable Chapa, L Lamonte PATRICK Unavailable Unavailable Chapa, Sarah Aburto MD Unavailable Unavailable Chapa, L Lamonte PATRICK Unavailable Unavailable Chapa, L Lamonte PATRICK Unavailable Unavailable Chapa, Sarah Aburto MD Unavailable Unavailable Chapa, Sarah Aburto MD Unavailable Unavailable Chapa, Sarah Aburto MD Unavailable Unavailable Chapa, Sarah Aburto MD Unavailable Unavailable Chapa, L Lamonte PATRICK Unavailable Unavailable Chaap, Sarah Aburto MD Unavailable Unavailable Chapa, L Lamonte PATRICK Unavailable Unavailable Chapa, L Lamonte PATRICK Unavailable Unavailable Chapa, L Lamonte PATRICK Unavailable Unavailable Chapa, L Lamonte PATRICK Unavailable Unavailable Chapa, Sarah Aburto MD Unavailable Unavailable Chapa, L Lamonte PATRICK Unavailable Unavailable Chapa, L Lamonte PATRICK Unavailable Unavailable Chapa, Sarah Aburto MD Unavailable Unavailable Chapa, L Lamonte PATRICK Unavailable Unavailable Chapa, Sarah Aburto MD Unavailable Unavailable Chapa, Sarah Aburto MD Unavailable Unavailable Chapa, Sarah Aburto MD Unavailable Unavailable Chapa, Sarah Aburto MD Unavailable Unavailable Chapa, Sarah Aburto MD Unavailable Unavailable Chapa, Sarah Aburto MD Unavailable Unavailable Chapa, Sarah Aburto MD Unavailable Unavailable Chapa, Sarah Aburto MD Unavailable Unavailable Chapa, Sarah Aburto MD Unavailable Unavailable Chapa, Sarah Aburto MD Unavailable Unavailable Chapa, Sarah Aburto MD Unavailable Unavailable Chapa, Sarah Aburto MD Unavailable Unavailable Chapa, Sarah Aburto MD Unavailable Unavailable Chapa, Sarah Aburto MD Unavailable Unavailable Chapa, L Lamonte PATRICK Unavailable Unavailable Chapa, Sarah Aburto MD Unavailable Unavailable Chapa, Sarah Aburto MD Unavailable Unavailable Chapa, Sarah Aburto MD Unavailable Unavailable Chapa, Sarah Aburto MD Unavailable Unavailable Chapa, Sarah Aburto MD Unavailable Unavailable Chapa, Sarah Aburto MD Unavailable Unavailable Jumalon, M Mar FERMENTATION MANAGER Unavailable Unavailable Jumalon, M Mar FERMENTATION MANAGER Unavailable Unavailable Jumalon, M Mar FERMENTATION MANAGER Unavailable Unavailable Jumalon, M Mar FERMENTATION MANAGER Unavailable Unavailable Jumalon, M Mar FERMENTATION MANAGER Unavailable Unavailable Jumalon, M Mar FERMENTATION MANAGER Unavailable Unavailable Jumalon, M Mar FERMENTATION MANAGER Unavailable Unavailable Jumalon, M Mar FERMENTATION MANAGER Unavailable Unavailable Jumalon, M Mar FERMENTATION MANAGER Unavailable Unavailable Jumalon, M Mar FERMENTATION MANAGER Unavailable Unavailable Jumalon, M Mar FERMENTATION MANAGER Unavailable Unavailable Jumalon, M Mar FERMENTATION MANAGER Unavailable Unavailable Jumalon, M Mar FERMENTATION MANAGER Unavailable Unavailable Jumalon, M Mar FERMENTATION MANAGER Unavailable Unavailable Jumalon, M Mar FERMENTATION MANAGER Unavailable Unavailable Jumalon, M Mar FERMENTATION MANAGER Unavailable Unavailable Jumalon, M Mar FERMENTATION MANAGER Unavailable Unavailable Jumalon, M Mar FERMENTATION MANAGER Unavailable Unavailable Jumalon, M Mar FERMENTATION MANAGER Unavailable Unavailable Jumalon, M Mar FERMENTATION MANAGER Unavailable Unavailable Jumalon, M Mar FERMENTATION MANAGER Unavailable Unavailable Jumalon, M Mar FERMENTATION MANAGER Unavailable Unavailable Jumalon, M Mar FERMENTATION MANAGER Unavailable Unavailable Jumalon, M Mar FERMENTATION MANAGER Unavailable Unavailable Jumalon, M Mar FERMENTATION MANAGER Unavailable Unavailable Jumalon, M Mar FERMENTATION MANAGER Unavailable Unavailable Jumalon, M Mar FERMENTATION MANAGER Unavailable Unavailable Jumalon, M Mar FERMENTATION MANAGER Unavailable Unavailable Angel Gao MD Unavailable Unavailable Angel Gao MD Unavailable Unavailable Angel Gao MD Unavailable Unavailable Angel Gao MD Unavailable Unavailable Monica Bal MD Unavailable Unavailable Monica Bal MD Unavailable Unavailable Monica Bal MD Unavailable Unavailable Monica Bal MD Unavailable Unavailable Monica Bal MD Unavailable Unavailable Monica Bal MD Unavailable Unavailable Monica Bal MD Unavailable Unavailable Monica Bal MD Unavailable Unavailable Monica Bal MD Unavailable Unavailable Monica Bal MD Unavailable Unavailable Monica Bal MD Unavailable Unavailable Monica Bal MD Unavailable Unavailable Monica Bal MD Unavailable Unavailable Monica Bal MD Unavailable Unavailable Monica Bal MD Unavailable Unavailable Monica Bal MD Unavailable Unavailable Monica Bal MD Unavailable Unavailable Monica Bal MD Unavailable Unavailable Monica Bal MD Unavailable Unavailable Monica Bal MD Unavailable Unavailable Monica Bal MD Unavailable Unavailable Monica Bal MD Unavailable Unavailable Monica Bal MD Unavailable Unavailable Monica Bal MD Unavailable Unavailable Monica Bal MD Unavailable Unavailable Monica Bal MD Unavailable Unavailable Monica Bal MD Unavailable Unavailable Monica Bal MD Unavailable Unavailable Monica Bal MD Unavailable Unavailable Monica Bal MD Unavailable Unavailable Monica Bal MD Unavailable Unavailable Monica Bal MD Unavailable Unavailable Monica Bal MD Unavailable Unavailable Monica aBl MD Unavailable Unavailable Monica Bal MD Unavailable Unavailable Monica Bal MD Unavailable Unavailable Monica Bal MD Unavailable Unavailable Monica Bal MD Unavailable Unavailable Monica Bal MD Unavailable Unavailable Monica Bal MD Unavailable Unavailable Monica Bal MD Unavailable Unavailable Monica Bal MD Unavailable Unavailable Monica Bal MD Unavailable Unavailable Monica Bal MD Unavailable Unavailable Monica Bal MD Unavailable Unavailable Monica Bal MD Unavailable Unavailable Monica Bal MD Unavailable Unavailable Monica Bal MD Unavailable Unavailable Monica Bal MD Unavailable Unavailable Monica Bal MD Unavailable Unavailable Monica Bal MD Unavailable Unavailable LEIBELSPERGER, ROBBI PA Unavailable Unavailable LEIBELSPERGER, ROBBI PA Unavailable Unavailable LEIBELSPERGER, ROBBI PA Unavailable Unavailable LEIBELSPERGER, ROBBI PA Unavailable Unavailable LEIBELSPERGER, ROBBI PA Unavailable Unavailable LEIBELSPERGER, ROBBI PA Unavailable Unavailable LEIBELSPERGER, ROBBI PA Unavailable Unavailable LEIBELSPERGER, ROBBI PA Unavailable Unavailable LEIBELSPERGER, ROBBI PA Unavailable Unavailable LEIBELSPERGER, ROBBI PA Unavailable Unavailable LEIBELSPERGER, ROBBI PA Unavailable Unavailable LEIBELSPERGER, ROBBI PA Unavailable Unavailable LEIBELSPERGER, ROBBI PA Unavailable Unavailable LEIBELSPERGER, ROBBI PA Unavailable Unavailable LEIBELSPERGER, ROBBI PA Unavailable Unavailable LEIBELSPERGER, ROBBI PA Unavailable Unavailable LEIBELSPERGER, ROBBI PA Unavailable Unavailable LEIBELSPERGER, ORBBI PA Unavailable Unavailable LEIBELSPERGER, ROBBI PA Unavailable Unavailable LEIBELSPERGER, ROBBI PA Unavailable Unavailable LEIBELSPERGER, ROBBI PA Unavailable Unavailable LEIBELSPERGER, ROBBI PA Unavailable Unavailable LEIBELSPERGER, ROBBI PA Unavailable Unavailable LEIBELSPERGER, ROBBI PA Unavailable Unavailable Rechlin, P Andrea DO Unavailable Unavailable Rechlin, P Andrea DO Unavailable Unavailable Rechlin, P Andrea DO Unavailable Unavailable Rechlin, P Andrea DO Unavailable Unavailable Rechlin, P Andrea DO Unavailable Unavailable Rechlin, P Andrea DO Unavailable Unavailable Rechlin, P Andrea DO Unavailable Unavailable Rechlin, P Andrea DO Unavailable Unavailable Rechlin, P Andrea DO Unavailable Unavailable Rechlin, P Andrea DO Unavailable Unavailable Rechlin, P Andrea DO Unavailable Unavailable Rechlin, P Andrea DO Unavailable Unavailable Rechlin, P Andrea DO Unavailable Unavailable Rechlin, P Andrea DO Unavailable Unavailable Rechlin, P Andrea DO Unavailable Unavailable Rechlin, P Andrea DO Unavailable Unavailable Rechlin, P Andrea DO Unavailable Unavailable Rechlin, P Andrea DO Unavailable Unavailable Rechlin, P Andrea DO Unavailable Unavailable Rechlin, P Andrea DO Unavailable Unavailable Rechlin, P Andrea DO Unavailable Unavailable Rechlin, P Andrea DO Unavailable Unavailable Rechlin, P Andrea DO Unavailable Unavailable Rechlin, P Andrea DO Unavailable Unavailable Rechlin, P Andrea DO Unavailable Unavailable Rechlin, P Andrea DO Unavailable Unavailable Rechlin, P Andrea DO Unavailable Unavailable Rechlin, P Andrea DO Unavailable Unavailable Rechlin, P Nadrea DO Unavailable Unavailable Rechlin, P Andrea DO Unavailable Unavailable Rechlin, P Andrea DO Unavailable Unavailable Rechlin, P Andrea DO Unavailable Unavailable Rechlin, P Andrea DO Unavailable Unavailable Rechlin, P Andrea DO Unavailable Unavailable Rechlin, P Andrea DO Unavailable Unavailable Rechlin, P Andrea DO Unavailable Unavailable Rechlin, P Andrea DO Unavailable Unavailable Rechlin, P Andrea DO Unavailable Unavailable Rechlin, P Andrea DO Unavailable Unavailable Rechlin, P Andrea DO Unavailable Unavailable Rechlin, P Andrea DO Unavailable Unavailable Rechlin, P Andrea DO Unavailable Unavailable Rechlin, P Andrea DO Unavailable Unavailable Rechlin, P Andrea DO Unavailable Unavailable Rechlin, P Andrea DO Unavailable Unavailable Rechlin, P Andrea DO Unavailable Unavailable Rechlin, P Andrea DO Unavailable Unavailable Rechlin, P Andrea DO Unavailable Unavailable Alice, Christian PATRICK Unavailable Unavailable Bridger Rojo PA Unavailable Unavailable Bridger Rojo PA Unavailable Unavailable Bridger Rojo PA Unavailable Unavailable Bridger Rojo PA Unavailable Unavailable Bridger Rojo PA Unavailable Unavailable Bridger Rojo PA Unavailable Unavailable Bridger Rojo PA Unavailable Unavailable Bridger Rojo PA Unavailable Unavailable Rojo, M Barratt PA Unavailable Unavailable Rojo, M Barratt PA Unavailable Unavailable Rojo, M Barratt PA Unavailable Unavailable Rojo, M Barratt PA Unavailable Unavailable Rojo, M Barratt PA Unavailable Unavailable Rojo, M Barratt PA Unavailable Unavailable Rojo, M Barratt PA Unavailable Unavailable Rojo, M Barratt PA Unavailable Unavailable Rojo, M Barratt PA Unavailable Unavailable Rojo, M Barratt PA Unavailable Unavailable Rojo, M Barratt PA Unavailable Unavailable Rojo, M Barratt PA Unavailable Unavailable Rojo, M Barratt PA Unavailable Unavailable Rojo, M Barratt PA Unavailable Unavailable Rojo, M Barratt PA Unavailable Unavailable Rojo, M Barratt PA Unavailable Unavailable Rojo, M Barratt PA Unavailable Unavailable Rojo, M Barratt PA Unavailable Unavailable Rojo, M Barratt PA Unavailable Unavailable Jaime Ann MD Unavailable Unavailable Jaime Ann MD Unavailable Unavailable Jaime Ann MD Unavailable Unavailable Jaime Ann MD Unavailable Unavailable Jaime Ann MD Unavailable Unavailable Jaime Ann MD Unavailable Unavailable Jaime Ann MD Unavailable Unavailable Jaime Ann MD Unavailable Unavailable Jaime Ann MD Unavailable Unavailable Jaime Ann MD Unavailable Unavailable Jaime Ann MD Unavailable Unavailable Jaiem Ann MD Unavailable Unavailable Jaime Ann MD Unavailable Unavailable Jaime Ann MD Unavailable Unavailable Jaime Ann MD Unavailable Unavailable Jaime Ann MD Unavailable Unavailable Jaime Ann MD Unavailable Unavailable Jaime Ann MD Unavailable Unavailable Jaime Ann MD Unavailable Unavailable Jaime Ann MD Unavailable Unavailable Jaime Ann MD Unavailable Unavailable Jaime Ann MD Unavailable Unavailable Jaime Ann MD Unavailable Unavailable Jaime Ann MD Unavailable Unavailable Jaime Ann MD Unavailable Unavailable Jaime Ann MD Unavailable Unavailable Jaime Ann MD Unavailable Unavailable Jaime Ann MD Unavailable Unavailable Jaime Ann MD Unavailable Unavailable Jaime Ann MD Unavailable Unavailable Jaime Ann MD Unavailable Unavailable Jaime Ann MD Unavailable Unavailable Jaime Ann MD Unavailable Unavailable Jaime Ann MD Unavailable Unavailable SethJaime nogueira MD Unavailable Unavailable Jaime Ann MD Unavailable Unavailable Jaime Ann MD Unavailable Unavailable Jaime Ann MD Unavailable Unavailable Jaime Ann MD Unavailable Unavailable Jaime Ann MD Unavailable Unavailable Jaime Ann MD Unavailable Unavailable Jaime Ann MD Unavailable Unavailable Seth, E Kimani MD Unavailable Unavailable Jaime Ann MD Unavailable Unavailable Jaime Ann MD Unavailable Unavailable Jaime Ann MD Unavailable Unavailable Jaime Ann MD Unavailable Unavailable Jaime Ann MD Unavailable Unavailable Jaime Ann MD Unavailable Unavailable Jaime Ann MD Unavailable Unavailable Jaime Ann MD Unavailable Unavailable Jaime Ann MD Unavailable Unavailable Jaime Ann MD Unavailable Unavailable Jaime Ann MD Unavailable Unavailable Jaime Ann MD Unavailable Unavailable Jaime Ann MD Unavailable Unavailable Jaime Ann MD Unavailable Unavailable Ronald, K Eliane DIRECTOR OF ANESTHESIA SERVICES Unavailable Unavailable Ronald, K Eliane DIRECTOR OF ANESTHESIA SERVICES Unavailable Unavailable Ronald, K Eliane DIRECTOR OF ANESTHESIA SERVICES Unavailable Unavailable Ronald, K Eliane DIRECTOR OF ANESTHESIA SERVICES Unavailable Unavailable Ronald, K Eliane DIRECTOR OF ANESTHESIA SERVICES Unavailable Unavailable Ronald, K Eliane DIRECTOR OF ANESTHESIA SERVICES Unavailable Unavailable Ronald, K Eliane DIRECTOR OF ANESTHESIA SERVICES Unavailable Unavailable Ronald, K Eliane DIRECTOR OF ANESTHESIA SERVICES Unavailable Unavailable Ronald, K Eliane DIRECTOR OF ANESTHESIA SERVICES Unavailable Unavailable Ronald, K Eliane DIRECTOR OF ANESTHESIA SERVICES Unavailable Unavailable Ronald, K Eliane DIRECTOR OF ANESTHESIA SERVICES Unavailable Unavailable Ronald, K Eliane DIRECTOR OF ANESTHESIA SERVICES Unavailable Unavailable Ronald, K Eliane DIRECTOR OF ANESTHESIA SERVICES Unavailable Unavailable Ronald, K Eliane DIRECTOR OF ANESTHESIA SERVICES Unavailable Unavailable Ronald, K Eliane DIRECTOR OF ANESTHESIA SERVICES Unavailable Unavailable Ronald, K Eliane DIRECTOR OF ANESTHESIA SERVICES Unavailable Unavailable Ronald, K Eliane DIRECTOR OF ANESTHESIA SERVICES Unavailable Unavailable Ronald, K Eliane DIRECTOR OF ANESTHESIA SERVICES Unavailable Unavailable Ronald, K Eliane DIRECTOR OF ANESTHESIA SERVICES Unavailable Unavailable Ronald, K Eliane DIRECTOR OF ANESTHESIA SERVICES Unavailable Unavailable Ronald, K Eliane DIRECTOR OF ANESTHESIA SERVICES Unavailable Unavailable Ronald, K Eliane DIRECTOR OF ANESTHESIA SERVICES Unavailable Unavailable Ronald, K Eliane DIRECTOR OF ANESTHESIA SERVICES Unavailable Unavailable Ronald, K Eliane DIRECTOR OF ANESTHESIA SERVICES Unavailable Unavailable Ronald, K Eliane DIRECTOR OF ANESTHESIA SERVICES Unavailable Unavailable Ronald, K Eliane DIRECTOR OF ANESTHESIA SERVICES Unavailable Unavailable Ronald, K Eliane DIRECTOR OF ANESTHESIA SERVICES Unavailable Unavailable Ronald, K Eliane DIRECTOR OF ANESTHESIA SERVICES Unavailable Unavailable Ronald, K Eliane DIRECTOR OF ANESTHESIA SERVICES Unavailable Unavailable Ronald, K Eliane DIRECTOR OF ANESTHESIA SERVICES Unavailable Unavailable Ronald, K Eliane DIRECTOR OF ANESTHESIA SERVICES Unavailable Unavailable Ronald, K Eliane DIRECTOR OF ANESTHESIA SERVICES Unavailable Unavailable Ronald, K Eliane DIRECTOR OF ANESTHESIA SERVICES Unavailable Unavailable Ronald, K Eliane DIRECTOR OF ANESTHESIA SERVICES Unavailable Unavailable [facility], NB[facility]K Unavailable Unavailable Forest, Temitope Amira Unavailable Unavailable Forest, Temitope Amira Unavailable Unavailable Forest, Temitope Amira Unavailable Unavailable Forest, Temitope Amira Unavailable Unavailable Forest, Temitope Amira Unavailable Unavailable Forest, Temitope Amira Unavailable Unavailable Forest, Temitope Amira Unavailable Unavailable Forest, Temitope Amira Unavailable Unavailable Forest, Temitope Amira Unavailable Unavailable Forest, Temitope Amira Unavailable Unavailable Forest, Temitope Amira Unavailable Unavailable Forest, Temitope Amira Unavailable Unavailable Forest, Temitope Amira Unavailable Unavailable Forest, Temitope Amira Unavailable Unavailable Forest, Temitope Amira Unavailable Unavailable Forest, Temitope Amira Unavailable Unavailable Forest, Temitope Amira Unavailable Unavailable Forest, Temitope Amira Unavailable Unavailable Forest, Temitope Amira Unavailable Unavailable Forest, Temitope Amira Unavailable Unavailable Forest, Temitope Amira Unavailable Unavailable Forest, Temitope Amira Unavailable Unavailable Forest, Temitope Amira Unavailable Unavailable Forest, Temitope Amira Unavailable Unavailable Forest, Temitope Amira Unavailable Unavailable Forest, Temitope Amira Unavailable Unavailable Forest, Temitope Amira Unavailable Unavailable Forest, Temitope Amira Unavailable Unavailable Forest, Temitope Amira Unavailable Unavailable Jean-Pierre Ling MD Unavailable Unavailable BolJean-Pierre dickerson MD Unavailable Unavailable BolJean-Pierre dickerson MD Unavailable Unavailable BolJean-Pierre dickerson MD Unavailable Unavailable BolJean-Pierre dickerson MD Unavailable Unavailable BolJean-Pierre dickerson MD Unavailable Unavailable BolJean-Pierre dickerson MD Unavailable Unavailable BolJean-Pierre dickerson MD Unavailable Unavailable BolJean-Pierre dickerson MD Unavailable Unavailable BolJean-Pierre dickerson MD Unavailable Unavailable BolJean-Pierre dickerson MD Unavailable Unavailable BolJean-Pierre dickerson MD Unavailable Unavailable BolJean-Pierre dickerson MD Unavailable Unavailable BolJean-Pierre dickerson MD Unavailable Unavailable BolJean-Pierre dickerson MD Unavailable Unavailable BolJean-Pierre dickerson MD Unavailable Unavailable BolJean-Pierre dickerson MD Unavailable Unavailable BolJean-Pierre dickerson MD Unavailable Unavailable BolJean-Pierre dickerson MD Unavailable Unavailable BolJean-Pierre dickerson MD Unavailable Unavailable BolJean-Pierre dickerson MD Unavailable Unavailable BolJean-Pierre dickerson MD Unavailable Unavailable BolJean-Pierre dickerson MD Unavailable Unavailable BolJean-Pierre dickerson MD Unavailable Unavailable BolJean-Pierre dickerson MD Unavailable Unavailable BolJean-Pierre dickerson MD Unavailable Unavailable BolJean-Pierre dickerson MD Unavailable Unavailable BolJean-Pierre dickersonOleg MD Unavailable Unavailable BolJean-Pierre dickerson MD Unavailable Unavailable BolJean-Pierre dickersonOleg MD Unavailable Unavailable BolJean-Pierre dickerson MD Unavailable Unavailable BolJean-Pierre dickerson MD Unavailable Unavailable Bolla, S Oleg MD Unavailable Unavailable Bolla, S Oleg MD Unavailable Unavailable Bolla, S Oleg MD Unavailable Unavailable Bolla, S Oleg MD Unavailable Unavailable Bolla, S Oleg MD Unavailable Unavailable Bolla, S Oleg MD Unavailable Unavailable Bolla, S Oleg MD Unavailable Unavailable Bolla, S Oleg MD Unavailable Unavailable Bolla, S Oleg MD Unavailable Unavailable Bolla, S Oleg MD Unavailable Unavailable Bolla, S Oleg MD Unavailable Unavailable Bolla, S Oleg MD Unavailable Unavailable Bolla, S Oleg MD Unavailable Unavailable Bolla, S Oleg MD Unavailable Unavailable Bolla, S Oleg MD Unavailable Unavailable Bolla, S Oleg MD Unavailable Unavailable [place], B Ellie MD Unavailable Unavailable [place], B Ellie MD Unavailable Unavailable [place], B Ellie MD Unavailable Unavailable [place], B Ellie MD Unavailable Unavailable [place], B Ellie MD Unavailable Unavailable [place], B Ellie MD Unavailable Unavailable [place], B Ellie MD Unavailable Unavailable [place], B Ellie MD Unavailable Unavailable [place], B Ellie MD Unavailable Unavailable [place], B Ellie MD Unavailable Unavailable [place], B Ellie MD Unavailable Unavailable [place], B Ellie MD Unavailable Unavailable Re-disclosure Warning The records that you are about to access may contain information from federally-assisted alcohol or drug abuse programs. If such information is present, then the following federally mandated warning applies: This information has been disclosed to you from records protected by federal confidentiality rules (42 CFR part 2). The federal rules prohibit you from making any further disclosure of this information unless further disclosure is expressly permitted by the written consent of the person to whom it pertains or as otherwise permitted by 42 CFR part 2. A general authorization for the release of medical or other information is NOT sufficient for this purpose. The Federal rules restrict any use of the information to criminally investigate or prosecute any alcohol or drug abuse patient.The records that you are about to access may contain highly sensitive health information, the redisclosure of which is protected by Article 27-F of the [facility] Public Health law. If you continue you may have access to information: Regarding HIV / AIDS; Provided by facilities licensed or operated by the [facility] Office of Mental Health; or Provided by the [facility] Office for People With Developmental Disabilities. If such information is present, then the following [facility] mandated warning applies: This information has been disclosed to you from confidential records which are protected by state law. State law prohibits you from making any further disclosure of this information without the specific written consent of the person to whom it pertains, or as otherwise permitted by law. Any unauthorized further disclosure in violation of state law may result in a fine or long-term sentence or both. A general authorization for the release of medical or other information is NOT sufficient authorization for further disc losure. Allergies and Adverse Reactions Type Description Substance Reaction Status Data Source(s ) Drug allergy Zocor 10 Drug allergy Anaphylaxis Active eCW1 ([facility]) puneet sprinkles puneet sprinkles puneet sprinkles head ache A ctive eCW1 ([facility]) tequin tequin tequin pruritis Active eCW1 ([facility]) Drug allergy gatifloxacin gatifloxacin Erythema [facility] Drug allergy rofecoxib rofecoxib Urticaria [facility] Drug allergy simvastatin simvastatin Anaphylaxis SV [facility] Drug allergy theophylline theophylline MASSIVE HEAD PAIN [facility] puneet sprinkles puneet sprinkles puneet sprinkles head ache A ctive eCW1 ([facility]) tequin tequin tequin pruritis Active eCW1 ([facility]) tequin tequin tequin pruritis Active eCW1 ([facility]) puneet sprinkles puneet sprinkles puneet sprinkles head ache A ctive eCW1 ([facility]) Crestor Crestor Rosuvastatin calcium 5 MG Oral Tablet [Crestor] myalgia Active eCW1 ([facility]) Family History Family Member Name Family Member Gender Family Member Status Date o f Status Description Data Source(s) Unknown Unknown Problem MEDENT ([facility], ) sister age 48 and another age 59 alive Encounters Encounter Providers Location Date Indications Data Source(s ) Mar Smith DIRECTOR OF ANESTHESIA SERVICES: [id number], [address], [place] [address], Ph. Attender: Mar YARBROUGH [place] - [facility] Office 04/15/2020 12:00:00 AM EST ATHE NA ([facility]) Outpatient Attender: Monica Bal MD 04/07/2020 09:05 :00 PM EST [facility] Outpatient Attender: Monica Bal MD Sharri/ Steffen Martin ology 04/07/2020 12:15:00 PM EST [facility] ([facility] [place]) Oleg Ling MD: [id number], [place] [address], Ph. Attender: Oleg Ling MD [place] - [facility] Office 03/31/2020 12:00:00 AM EST MARILIA ([facility]) Oleg Ling MD: [id number], [place] [address]- 5540, Ph. Attender: Oleg Ling MD [place] - [facility] - [facility] Office 03/31/2020 12:00:00 AM EST MARILIA ([facility]) OFFICE OUTPATIENT VISIT 15 MINUTES Attender: Bren RODRIGES Physical Therapy 03/27/2020 12:45:00 PM EST MEDENT ([facility]) Oleg Ling MD: [address], [place] [address], Ph. [phone] Attender: Oleg Ling MD [facility] Office 03/26/2020 12:00:00 AM EST MARILIA ([facility]) Oleg Ling MD: [address], [place] [address], Ph. [phone] Attender: Oleg Ling MD [place] - [facility] - [facility] Office 03/26/2020 12:00:00 AM EST MARILIA ([facility]) Oleg Ling MD: [address], [place] [address], Ph. [phone] Attender: Oleg Ling MD [place] - [facility] 03/26/2020 12:00:00 AM EST MARILIA ([facility]) Mar Smith, DIRECTOR OF ANESTHESIA SERVICES: [address], [place] [address], Ph. Attender: Mar Smith [facility] - [facility] 03/18/2020 12:00:00 AM EST ATHE NA ([facility]) Mar Smith, DIRECTOR OF ANESTHESIA SERVICES: [address], [place] [address], Ph. Attender: Martorres Smith [facility] - [facility] 03/18/2020 12:00:00 AM EST ATHE NA ([facility]) Mar Smith, DIRECTOR OF ANESTHESIA SERVICES: [address], [place] [address], Ph. Attender: Mar Diyadelmis [facility] - [facility] 03/18/2020 12:00:00 AM EST ATHE NA ([facility]) Mar Smith, DIRECTOR OF ANESTHESIA SERVICES: [address], [place] [address], Ph. Attender: Mar Smith [facility] - [facility] 03/18/2020 12:00:00 AM EST ATHE NA ([facility]) Unknown [address] [facility] [address] 03/14/2020 12:00:00 AM EST eCW1 ([facility]) Unknown [address] [facility] [address] 03/13/2020 12:00:00 AM EST eCW1 ([facility]) Outpatient Attender: Andrea Sterling/Riri/Mil/Joe ndl 03/12/2020 09:00:00 AM EST EVELYNE ([facility]) Mar Smith, DIRECTOR OF ANESTHESIA SERVICES: [address], [place] [address], Ph. Attender: Mar Smith [facility] - [facility] 02/14/2020 12:00:00 AM EST ATHE NA ([facility]) Mar Smith, DIRECTOR OF ANESTHESIA SERVICES: [address], [place] [address], Ph. Attender: Mar Smith [facility] - [facility] 02/14/2020 12:00:00 AM EST ATHE NA ([facility]) Mar Smith, DIRECTOR OF ANESTHESIA SERVICES: [address], [place] [address], Ph. Attender: Mar Smith [facility] 02/14/2020 12:00:00 AM EST ATHE NA ([facility]) Mar Smith, DIRECTOR OF ANESTHESIA SERVICES: [address], [place] [address], Ph. Attender: Mar Smith [facility] - [facility] 02/14/2020 12:00:00 AM EST ATHE NA ([facility]) Mar Smith, DIRECTOR OF ANESTHESIA SERVICES: [address], [place] [address], Ph. Attender: Mar Smith [facility] - [facility] 02/14/2020 12:00:00 AM EST ATHE NA ([facility]) Unknown [address] [facility] [address] 02/13/2020 12:00:00 AM EST eCW1 ([facility]) Unknown [address] [facility] [place] [address] 02/06/2020 12:00:00 AM EST eCW1 ([facility]) Outpatient Attender: Amira Garg 01/10/2020 11:00:00 PM E [facility] Outpatient Attender: Amira Garg [place] 12:30:00 PM EST MEDENT ([facility]) Preadmit Attender: Cesario Gao MD 01/03/2020 12:00:00 AM EDT S/P R FEMUR FX [facility] S/P R FEMUR FX Outpatient Attender: Monica Bal MD 12/11/2019 11:00 :00 PM EDT [facility] Unknown [address] [facility] [address] 12/06/2019 12:00:00 AM EDT eCW1 ([facility]) Unknown [address] [facility] [address] 12/05/2019 12:00:00 AM EDT eCW1 ([facility]) Oleg Ling MD: [address], [place] [address], Ph. Attender: Oleg CHAIREZ - [facility] 12/03/2019 12:00:00 AM EDT MARILIA ([facility]) Oleg Ling MD: [address], [place] [address], Ph. Attender: Oleg CHAIREZ - [facility] - [facility] 12/03/2019 12:00:00 AM EDT MARILIA ([facility]) Oleg Ling MD: [address], [place] [address], Ph. Attender: Oleg Ling [place] - [facility] 12/03/2019 12:00:00 AM EDT MARILIA ([facility]) Oleg Ling MD: [address], [address], [place] [address], Ph. Attender: Oleg Ling [place] - [facility] 12/03/2019 12:00:00 AM EDT MARILIA ([facility]) Oleg Ling MD: [address], [address], [place] [address], Ph. Attender: Oleg Ling [place] - [facility] 12/03/2019 12:00:00 AM EDT MARILIA ([facility]) Oleg Ling MD: [address], [address], [place] [address], Ph. Attender: Oleg CHAIREZ - [facility] 12/03/2019 12:00:00 AM EDT MARILIA ([facility]) Oleg Ling MD: [address], [address], [place] [address], Ph. [phone] Attender: Oleg CHAIREZ - [facility] 11/28/2019 12:00:00 AM EDT MARILIA ([facility]) Oleg Ling MD: [address], [address], [place] [address], Ph. [phone] Attender: Oleg CHAIREZ - [facility] 11/28/2019 12:00:00 AM EDT MARILIA ([facility]) Oleg Ling MD: [address], [address], [place] [address], Ph. [phone] Attender: Oleg Ling [place] - [facility] 11/28/2019 12:00:00 AM EDT MARILIA ([facility]) Oleg Ling MD: [address], [address], [place] [address], Ph. [phone] Attender: Oleg Ling [place] - [facility] 11/28/2019 12:00:00 AM EDT MARILIA ([facility]) Oleg Ling MD: [address], [address], [place] [address], Ph. [phone] Attender: Oleg CHAIREZ - [facility] 11/28/2019 12:00:00 AM EDT MARILIA ([facility]) Oleg Ling MD: [address], [address], [place] [address], Ph. [phone] Attender: Oleg Ling [place] - [facility] 11/28/2019 12:00:00 AM EDT MARILIA ([facility]) Oleg Ling MD: [address], [address], [place] [address], Ph. [phone] Attender: Oleg Ling [place] - [facility] 11/28/2019 12:00:00 AM EDT MARILIA ([facility]) Oleg Ling MD: [address], [address], [place] [address], Ph. [phone] Attender: Oleg CHAIREZ - [facility] Office 11/23/2019 12:00:00 AM EDT MARILIA ([facility]) Oleg Ling MD: [address], [address], [place] [address], Ph. [phone] Attender: Oleg CHAIREZ - [facility] 11/23/2019 12:00:00 AM EDT MARILIA ([facility]) Oleg Ling MD: [address], [address], [place] [address], Ph. [phone] Attender: Oleg Ling [place] - [facility] 11/23/2019 12:00:00 AM EDT MARILIA ([facility]) Oleg Ling MD: [address], [address], [place] [address], Ph. [phone] Attender: Oleg Ling [place] - [facility] 11/23/2019 12:00:00 AM EDT MARILIA ([facility]) Oleg Ling MD: [address], [address], [place] [address], Ph. [phone] Attender: Oleg CHAIREZ - [facility] 11/23/2019 12:00:00 AM EDT MARILIA ([facility]) Oleg Ling MD: [address], [address], [place] [address], Ph. [phone] Attender: Oleg CHAIREZ - [facility] - [facility] 11/23/2019 12:00:00 AM EDT MARILIA ([facility]) Oleg Ling MD: [address], [address], [place] [address], Ph. [phone] Attender: Oleg CHAIREZ - [facility] 11/23/2019 12:00:00 AM EDT MARILIA ([facility]) Oleg Ling MD: [address], [address], [place] [address], Ph. [phone] Attender: Oleg Ling [place] - [facility] 11/23/2019 12:00:00 AM EDT MARILIA ([facility]) Mar Smith, DIRECTOR OF ANESTHESIA SERVICES: [address], [address], [place] [address], Ph. Attender: Mar Smith [facility] - [facility] 11/22/2019 12:00:00 AM EDT ATHE NA ([facility]) Mar Smith, DIRECTOR OF ANESTHESIA SERVICES: [address], [address], [place] [address], Ph. Attender: Mar Smith [facility] - [facility] 11/22/2019 12:00:00 AM EDT ATHE NA ([facility]) Mar Smith, DIRECTOR OF ANESTHESIA SERVICES: [address], [place] [address], Ph. Attender: Mar Smith [facility] - [facility] 11/22/2019 12:00:00 AM EDT ATHE NA ([facility]) Mar Simth, DIRECTOR OF ANESTHESIA SERVICES: [address], [address], [place] [address], Ph. Attender: Mar Smith [facility] - [facility] 11/22/2019 12:00:00 AM EDT ATHE NA ([facility]) Mar Smith, DIRECTOR OF ANESTHESIA SERVICES: [address], [address], [place] [address], Ph. Attender: Mar Smith [facility] - [facility] 11/22/2019 12:00:00 AM EDT ATHE NA ([facility]) Mra Smith, DIRECTOR OF ANESTHESIA SERVICES: [address], [address], [place] [address], Ph. Attender: Mar Sarah [facility] - [facility] 11/22/2019 12:00:00 AM EDT ATHE NA ([facility]) Mar Smith, DIRECTOR OF ANESTHESIA SERVICES: [address], [place] [address], Ph. Attender: Mar Smith [facility] - [facility] 11/22/2019 12:00:00 AM EDT ATHE NA ([facility]) Mar Smith, DIRECTOR OF ANESTHESIA SERVICES: [address], [address], [place] [address], Ph. Attender: Mar Smith [facility] - [facility] 11/22/2019 12:00:00 AM EDT ATHE NA ([facility]) Mar Smith, DIRECTOR OF ANESTHESIA SERVICES: [address], [place] [address], Ph. Attender: Mar Smith [facility] - [facility] 11/22/2019 12:00:00 AM EDT ATHJaime NA ([facility]) Oleg Ling MD: [address], [place] [address], Ph. Attender: Oleg CHAIREZ - [facility] 11/07/2019 12:00:00 AM EDT MARILIA ([facility]) Oleg Ling MD: [address], [address], [place] [address], Ph. Attender: Oleg Ling [place] - [facility] 11/07/2019 12:00:00 AM EDT MARILIA ([facility]) Oleg Ling MD: [address], [address], [place] [address], Ph. Attender: Oleg Ling [place] - [facility] 11/07/2019 12:00:00 AM EDT MARILIA ([facility]) Oleg Ling MD: [address], [address], [place] [address], Ph. Attender: Oleg CHAIREZ - [facility] 11/07/2019 12:00:00 AM EDT MARILIA ([facility]) Oleg Ling MD: [address], [address], [place] [address], Ph. Attender: Oleg CHAIREZ - [facility] 11/07/2019 12:00:00 AM EDT MARILIA ([facility]) Oleg Ling MD: [address], [address], [place] [address], Ph. Attender: Oleg CHAIREZ - [facility] 11/07/2019 12:00:00 AM EDT MARILIA ([facility]) Oleg Ling MD: [address], [address], [place] [address], Ph. Attender: Oleg CHAIREZ - [facility] 11/07/2019 12:00:00 AM EDT MARILIA ([facility]) Oleg Ling MD: [address]93 [address], [address], [place] [address], Ph. Attender: Oleg CHAIREZ - [facility] 11/07/2019 12:00:00 AM EDT MARILIA ([facility]) Oleg Ling MD: [address], [address], [place] [address], Ph. Attender: Oleg Ling [place] - [facility] 11/07/2019 12:00:00 AM EDT MARILIA ([facility]) Oleg Ling MD: [address], [address], [place] [address], Ph. Attender: Oleg Ling MD [place] - [facility] 11/07/2019 12:00:00 AM EDT MARILIA ([facility]) Oleg Ling MD: [address], [address], [place] [address], Ph. [phone] Attender: Oleg Ling MD [place] - [facility] 11/02/2019 12:00:00 AM EDT MARILIA ([facility]) Oleg Ling MD: [address], [address], [place] [address], Ph. [phone] Attender: Oleg Ling MD [place] - [facility] 11/02/2019 12:00:00 AM EDT MARILIA ([facility]) Oleg Ling MD: [address], [address], [place] [address], Ph. [phone] Attender: Oleg Ling MD [place] - [facility] 11/02/2019 12:00:00 AM EDT MARILIA ([facility]) Oleg Ling MD: [address], [address], [place] [address], Ph. [phone] Attender: Oleg Ling MD [place] - [facility] 11/02/2019 12:00:00 AM EDT MARILIA ([facility]) Oleg Ling MD: [address], [address], [place] [address], Ph. [phone] Attender: Oleg Ling MD [place] - [facility] 11/02/2019 12:00:00 AM EDT MARILIA ([facility]) Oleg Ling MD: [address], [address], [place] [address], Ph. [phone] Attender: Oleg Ling MD [place] - [facility] 11/02/2019 12:00:00 AM EDT MARILIA ([facility]) Oleg Ling MD: [address], [address], [place] [address], Ph. [phone] Attender: Oleg Ling MD [place] - [facility] 11/02/2019 12:00:00 AM EDT MARILIA ([facility]) Oleg Ling MD: [address]31 [address], [address], [place] [address], Ph. [phone] Attender: Oleg CHAIREZ - [facility] 11/02/2019 12:00:00 AM EDT MARILIA ([facility]) Oleg Ling MD: [address], [address], [place] [address], Ph. [phone] Attender: Oleg Ling [place] - [facility] 11/02/2019 12:00:00 AM EDT MARILIA ([facility]) Oleg Ling MD: [address]67 [address], [address], [place] [address], Ph. [phone] Attender: Oleg Ling MD [place] - [facility] 11/02/2019 12:00:00 AM EDT MARILIA ([facility]) Oleg Ling MD: [address]18 [address], [address], [place] [address], Ph. [phone] Attender: Oleg Ling MD [place] - [facility] 11/02/2019 12:00:00 AM EDT MARILIA ([facility]) Mar Smith, DIRECTOR OF ANESTHESIA SERVICES: [address], [address], [place] [address], Ph. Attender: Mar Smith [facility] - [facility] 10/24/2019 12:00:00 AM EDT ATHE NA ([facility]) Mar Smith, DIRECTOR OF ANESTHESIA SERVICES: [address], [address], [place] [address], Ph. Attender: Mar Francisyue [facility] - [facility] 10/24/2019 12:00:00 AM EDT ATHE NA ([facility]) Mar Smith, DIRECTOR OF ANESTHESIA SERVICES: [address], [place] [address], Ph. Attender: Mar Diyaabigailyue [facility] - [facility] 10/24/2019 12:00:00 AM EDT ATHE NA ([facility]) Mar Smith, DIRECTOR OF ANESTHESIA SERVICES: [address], [address], [place] [address], Ph. Attender: Mar Smith [facility] - [facility] 10/24/2019 12:00:00 AM EDT ATHE NA ([facility]) Mar Smith, DIRECTOR OF ANESTHESIA SERVICES: [address], [address], [place] [address], Ph. Attender: Mar Diyadelmis [facility] - [facility] 10/24/2019 12:00:00 AM EDT ATHE NA ([facility]) Mar Smith, DIRECTOR OF ANESTHESIA SERVICES: [address], [address], [place] [address], Ph. Attender: Mar Sarah [facility] - [facility] 10/24/2019 12:00:00 AM EDT ATHE NA ([facility]) Mar Smith, DIRECTOR OF ANESTHESIA SERVICES: [address], [place] [address], Ph. Attender: Mar Smith [facility] - [facility] 10/24/2019 12:00:00 AM EDT ATHE NA ([facility]) Mar Smith, DIRECTOR OF ANESTHESIA SERVICES: [address], [address], [place] [address], Ph. Attender: Mar Smith [facility] - [facility] 10/24/2019 12:00:00 AM EDT ATHE NA ([facility]) Mar Smith, DIRECTOR OF ANESTHESIA SERVICES: [address], [place] [address], Ph. Attender: Mar Smith [facility] - [facility] 10/24/2019 12:00:00 AM EDT ATHE NA ([facility]) Mar Smith, DIRECTOR OF ANESTHESIA SERVICES: [address], [address], [place] [address], Ph. Attender: Mar Smith [facility] - [facility] 10/24/2019 12:00:00 AM EDT ATHE NA ([facility]) Mar Smith, DIRECTOR OF ANESTHESIA SERVICES: [address], [address], [place] [address], Ph. Attender: Mar Smith [facility] - [facility] 10/24/2019 12:00:00 AM EDT ATHE NA ([facility]) Mar Smith, DIRECTOR OF ANESTHESIA SERVICES: [address], [address], [place] [address], Ph. Attender: Mar Smith LINNEA [place] - [facility] - Main Office 10/24/2019 12:00:00 AM EDT ATHJaime NA ([facility]) OFFICE OUTPATIENT VISIT 15 MINUTES Attender: Bren RODRIGES Physical Therapy 10/17/2019 10:45:00 AM EDT MEDENT ([facility]) [facility] [address] [facility] [address] 10/12/2019 12:00:00 AM EDT eCW1 [facility] Outpatient Attender: Amira Garg 10/11/2019 08:07:00 PM E DT [facility] Outpatient Attender: Amira Harrell/ [facility] 11:00:00 AM EDT MEDENT ([facility] Outpatient Attender: Monica Bal MD 09/04/2019 08:59 :00 PM EDT [facility] Outpatient Attender: Monica Harrell/ KirshPKelsie [facility] 09/04/2019 11:45:00 AM EDT MEDENT ([facility] Unknown [address] [facility], [facility] [address] 08/21/2019 12:00:00 AM EDT eCW1 ([facility]) [facility] 08/14/2019 07:45:42 PM EDT [facility] [address] [facility] [address] 08/08/2019 12:00:00 AM EDT eCW1 ([facility]) Unknown [address] [facility] [address] 08/02/2019 12:00:00 AM EDT eCW1 ([facility]) [facility] [address] [facility] [place] [address] 07/31/2019 12:00:00 AM EDT eCW1 ([facility]) [address] [address] 07/27/2019 12:00:00 AM EDT eCW1 ([facility]) [address] [address] 07/10/2019 12:00:00 AM EDT eCW1 ([facility]) Outpatient Attender: Eliane Cardenas NP [place]/ [facility] 11:00:00 AM EDT MEDENT ([facility]) Outpatient Attender: Cesario Gao MDReferrer: Kimani Lees 06/21/2019 10:41:00 AM EDT - 06/21/2019 11:40:00 AM EDT [facility] Outpatient Attender: ROBBI RODRIGES 0 10:33:00 AM EDT POST OP ORTHO [facility] POST OP ORTHO Outpatient Referrer: Lamonte Chapa MD 06/19/2019 04:53:00 AM EDT [facility] [address], [facility] [address] 06/08/2019 12:00:00 AM EDT eCW1 ([facility]) [address], [facility] [address] 06/07/2019 12:00:00 AM EDT eCW1 ([facility]) Outpatient Attender: ROBBI RODRIGES 0 04:29:00 PM EST [id number] [facility] [id number] Outpatient Attender: ROBBI CHANG PAReferrer: Kimani montalvo MD 05/11/2019 03:50:00 PM EST - 05/11/2019 05:05:00 PM EST [address] [address] 04/19/2019 12:00:00 AM EST eCW1 ([facility]) [address] [address] 04/19/2019 12:00:00 AM EST eCW1 ([facility]) Outpatient Attender: Cesario Gao MD 04/03 10:15:00 AM EST - 04/03/2019 07:40:00 PM EST [id number] [facility] l [id number] Patient discharged. Outpatient Attender: Cesario Gao MDReferrer: Kimani Lees 03/29/2019 02:36:00 PM EST [facility] Outpatient Attender: ROBBI RODRIGES 0 02:17:00 PM EST POST OP FX [facility] POST OP FX [address] [address] 03/23/2019 12:00:00 AM EST eCW1 ([facility]) [address], [place] [address] 03/21/2019 12:00:00 AM EST eCW1 ([facility] [address] [address] 03/16/2019 12:00:00 AM EST eCW1 [facility] [address] [address] 03/16/2019 12:00:00 AM EST [facility]CW1 [facility] Outpatient Attender: ROBBI CHANG PAReferrer: Kimani montalvo MD 03/14/2019 02:51:00 PM EST - 03/14/2019 04:11:00 PM EST [facility] Outpatient Attender: ROBBI RODRIGES 0 02:09:00 PM EST [id number] [facility] [id number] [address] [address] 03/08/2019 12:00:00 AM EST eCW1 ([facility]) Inpatient Attender: Ellie Jefferson MD Attender: Christian Jenkins MDAdmitter: Ellie Jefferson MDConsultant: Cesario Gao MD 02/19/2019 05:52:00 PM EST - 03/06/2019 02:05:00 PM EST S/P FEMUR FRACTURE [facility] S/P FEMUR FRACTURE Patient discharged. 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 Medications Medication Brand Name Start Date Product Form Dose Route Admi nistrative Instructions Pharmacy Instructions Status Indications Reaction Description Data Source(s) Ciprofloxacin 500 MG Oral Tablet Ciprofloxacin HCL 04/09/2020 12:00 :00 AM EST ORAL active [facility] ([facility] NITROFURANTOIN, MACROCRYSTALS 50 MG Oral Capsule [Macrodanti n] Macrodantin 04/09/2020 12:00:00 AM EST ORAL active [facility] ([facility]) Cyclobenzaprine hydrochloride 10 MG Oral Tablet Cyclob enzaprine HCl 10 MG Cyclobenzaprine HCl 10 MG 02/07/2020 12:00:00 AM EST active Cyclobenzaprine HCl 10 MG eCW1 ([facility]) Cyclobenzaprine hydrochloride 10 MG Oral Tablet Cyclob enzaprine HCl 10 MG Cyclobenzaprine HCl 10 MG 02/07/2020 12:00:00 AM EST active Cyclobenzaprine HCl 10 MG eCW1 ([facility]) Cyclobenzaprine hydrochloride 10 MG Oral Tablet Cyclob enzaprine HCl 10 MG Cyclobenzaprine HCl 10 MG 02/07/2020 12:00:00 AM EST active Cyclobenzaprine HCl 10 MG eCW1 ([facility]) Cyclobenzaprine hydrochloride 5 MG Oral Tablet Cyclobe nzaprine HCl 5 MG Cyclobenzaprine HCl 5 MG 02/07/2020 12:00:00 AM EST active Cyclobenzaprine HCl 5 MG eCW1 ([facility]) Metronidazole 500 MG Oral Tablet Metronidazole 01/14/2020 12:00:00 AM EST ORAL active [facility] ([facility] NITROFURANTOIN, MACROCRYSTALS 25 MG / Ni trofurantoin, Monohydrate 75 MG Oral Capsule [Macrobid] Macrobid 01/10/2020 12:00:00 AM EST ORAL completed [facility] ([facility]) Tamsulosin hydrochloride 0.4 MG Oral Capsule Tamsulosin HCL 01/10/2020 12:00:00 AM EST active [facility] ([facility]) Ciprofloxacin 250 MG Oral Tablet Ciprofloxacin HCL 12/13/2019 12:00 :00 AM EDT ORAL completed [facility] ([facility] Amitriptyline Hydrochloride 25 MG Oral Tablet Amitript yline HCl 25 MG Amitriptyline HCl 25 MG 12/06/2019 12:00:00 AM EDT active Amitriptyline HCl 25 MG eCW1 ([facility]) Amitriptyline Hydrochloride 25 MG Oral Tablet Amitript yline HCl 25 MG Amitriptyline HCl 25 MG 12/06/2019 12:00:00 AM EDT active Amitriptyline HCl 25 MG eCW1 ([facility]) Amitriptyline Hydrochloride 25 MG Oral Tablet Amitript yline HCl 25 MG Amitriptyline HCl 25 MG 12/06/2019 12:00:00 AM EDT active Amitriptyline HCl 25 MG eCW1 ([facility]) Amitriptyline Hydrochloride 25 MG Oral Tablet Amitript yline HCl 25 MG Amitriptyline HCl 25 MG 12/06/2019 12:00:00 AM EDT active Amitriptyline HCl 25 MG eCW1 ([facility]) Amitriptyline Hydrochloride 25 MG Oral Tablet Amitript yline HCl 25 MG Amitriptyline HCl 25 MG 12/06/2019 12:00:00 AM EDT active Amitriptyline HCl 25 MG eCW1 ([facility]) Amitriptyline Hydrochloride 25 MG Oral Tablet Amitript yline HCl 25 MG Amitriptyline HCl 25 MG 12/06/2019 12:00:00 AM EDT active Amitriptyline HCl 25 MG eCW1 ([facility]) Botox 50 Units For Waste For 200 Units JW Modifier 11/27/2019 12:00:00 AM EDT completed [facility] ([facility]) Medication administered onsite Ciprofloxacin 250 MG Oral Tablet Ciprofloxacin HCL 11/27/2019 12:00 :00 AM EDT ORAL completed [facility] ([facility] Botox 200 Units- I Vial 11/27/2019 12:00:00 AM EDT completed [facility] ([facility]) Medication administered onsite Alprazolam 1 MG Oral Tablet Alprazolam 10/11/2019 12:00:00 AM EDT ORAL completed [facility] ([facility]) cefdinir 300 MG Oral Capsule Cefdinir 09/06/2019 12:00:00 AM EDT ORAL active [facility] ([facility] [place] Estradiol 0.1 MG/ML Vaginal Cream [Estrace] Estrace 08/07 12:00:00 AM EDT active [facility] ( [facility]) Albuterol 0.83 MG/ML Inhalant Solution Albuterol Sulfate 0 07/12/2019 12:00:00 AM EDT active [facility] ([facility] ) tramadol hydrochloride 50 MG Oral Tablet Tramadol Tramadol 05/25/2019 05:46:43 PM EDT 50 MG active [facility] tramadol hydrochloride 50 MG Oral Tablet Tramadol Tramadol 05/11/2019 05:08:36 PM EST 50 MG completed [facility] Docusate Sodium 100 MG Oral Capsule Docusate Sodium 04/03/2019 1 0:42:12 AM EST 100 MG active [facility] Docusate Sodium 100 MG Oral Capsule Docusate Sodium 04/03/2019 1 0:42:12 AM EST 100 MG active [facility] Cyclobenzaprine hydrochloride 10 MG Oral Tablet Cyclobenzapr ine 04/03/2019 10:42:12 AM EST 15 MG active [facility] Cyclobenzaprine hydrochloride 10 MG Oral Tablet Cyclobenzapr ine 04/03/2019 10:42:12 AM EST 15 MG active [facility] Cyclobenzaprine hydrochloride 10 MG Oral Tablet Cyclobenzapr ine 04/03/2019 10:42:12 AM EST 15 MG active [facility] Docusate Sodium 100 MG Oral Capsule Docusate Sodium 04/03/2019 1 0:42:12 AM EST 100 MG active [facility] Doxycycline Monohydrate 100 MG UNK 03/23/2019 12:00:00 AM EST active 1 tablet eCW1 ([facility]) Methylprednisolone 2 MG Oral Tablet Methylprednisolone 10/2019 03:11:04 PM EST 2 MG completed [facility] Methylprednisolone 2 MG Oral Tablet Methylprednisolone 10/2019 03:11:04 PM EST 2 MG completed [facility] Methylprednisolone 2 MG Oral Tablet Methylprednisolone 10/2019 03:11:04 PM EST 2 MG completed [facility] Methylprednisolone 2 MG Oral Tablet Methylprednisolone 10/2019 03:11:04 PM EST 2 MG completed [facility] Oxycodone Hydrochloride 5 MG Oral Capsule Oxycodone 2018 08:32:10 AM EST 5 MG active [facility] Oxycodone Hydrochloride 5 MG Oral Capsule Oxycodone 2018 08:32:10 AM EST 5 MG completed [facility] Oxycodone Hydrochloride 5 MG Oral Capsule Oxycodone 2018 08:32:10 AM EST 5 MG completed [facility] Oxycodone Hydrochloride 5 MG Oral Capsule Oxycodone 2018 08:32:10 AM EST 5 MG [facility] Acetaminophen 500 MG Oral Tablet Acetaminophen 03/06/2019 08:29:47 AM EST 500 MG active [facility] Acetaminophen 500 MG Oral Tablet Acetaminophen 03/06/2019 08:29:47 AM EST 500 MG active [facility] Acetaminophen 500 MG Oral Tablet Acetaminophen 03/06/2019 08:29:47 AM EST 500 MG active [facility] Acetaminophen 500 MG Oral Tablet Acetaminophen 03/06/2019 08:29:47 AM EST 500 MG active [facility] 0.3 ML Enoxaparin sodium 100 MG/ML Prefilled Syringe Enoxapa rin 03/06/2019 08:24:12 AM EST 30 MG completed [facility] 0.3 ML Enoxaparin sodium 100 MG/ML Prefilled Syringe Enoxapa rin 03/06/2019 08:24:12 AM EST 30 MG completed [facility] 0.3 ML Enoxaparin sodium 100 MG/ML Prefilled Syringe Enoxapa rin 03/06/2019 08:24:12 AM EST 30 MG completed [facility] 0.3 ML Enoxaparin sodium 100 MG/ML Prefilled Syringe Enoxapa rin 03/06/2019 08:24:12 AM EST 30 MG completed [facility] Acetaminophen 325 MG / Oxycodone Hydroch loride 5 MG Oral Tablet Oxycodone-Acetaminophen Oxycodone-Acetaminophen 02/22/2019 11:14:39 AM EST 1 TAB completed [facility] POLYETHYLENE GLYCOL 3350 142 MG/ML Oral Solution Polye thylene Glycol 3350 Polyethylene Glycol 3350 02/22/2019 11:14:39 AM EST 17 GM completed [facility] POLYETHYLENE GLYCOL 3350 142 MG/ML Oral Solution Polye thylene Glycol 3350 Polyethylene Glycol 3350 02/22/2019 11:14:39 AM EST 17 GM completed [facility] POLYETHYLENE GLYCOL 3350 142 MG/ML Oral Solution Polye thylene Glycol 3350 Polyethylene Glycol 3350 02/22/2019 11:14:39 AM EST 17 GM completed [facility] Acetaminophen 325 MG / Oxycodone Hydroch loride 5 MG Oral Tablet Oxycodone-Acetaminophen Oxycodone-Acetaminophen 02/22/2019 11:14:39 AM EST 1 TAB completed [facility] Acetaminophen 325 MG / Oxycodone Hydroch loride 5 MG Oral Tablet Oxycodone-Acetaminophen Oxycodone-Acetaminophen 02/22/2019 11:14:39 AM EST 1 TAB completed [facility] POLYETHYLENE GLYCOL 3350 142 MG/ML Oral Solution Polye thylene Glycol 3350 Polyethylene Glycol 3350 02/22/2019 11:14:39 AM EST 17 GM completed [facility] Acetaminophen 325 MG / Oxycodone Hydroch loride 5 MG Oral Tablet Oxycodone-Acetaminophen Oxycodone-Acetaminophen 02/22/2019 11:14:39 AM EST 1 TAB completed [facility] Cyclobenzaprine hydrochloride 5 MG Oral Tablet Cyclobenzapri ne 02/22/2019 11:07:47 AM EST 15 MG completed [facility] Cyclobenzaprine hydrochloride 5 MG Oral Tablet Cyclobenzapri ne 02/22/2019 11:07:47 AM EST 15 MG completed [facility] Cyclobenzaprine hydrochloride 5 MG Oral Tablet Cyclobenzapri ne 02/22/2019 11:07:47 AM EST 15 MG completed [facility] Cyclobenzaprine hydrochloride 5 MG Oral Tablet Cyclobenzapri ne 02/22/2019 11:07:47 AM EST 15 MG completed [facility] Clonazepam 0.5 MG Oral Tablet Clonazepam 02/21/2019 09:13:28 AM EST 0.5 MG completed [facility] Fluticasone Propion-Salmeterol 02/21/2019 09:13:28 AM EST 1 PUFFS completed [facility] Clonazepam 0.5 MG Oral Tablet Clonazepam 02/21/2019 09:13:28 AM EST 0.5 MG completed [facility] Fluticason Propion-Salmeterol 02/21/2019 09:13:28 AM EST 1 PUFFS completed [facility] Clonazepam 0.5 MG Oral Tablet Clonazepam 02/21/2019 09:13:28 AM EST 0.5 MG completed [facility] Docusate Sodium 100 MG Oral Capsule Docusate Sodium 02/21/2019 0 9:13:28 AM EST 100 MG completed [facility] Docusate Sodium 100 MG Oral Capsule Docusate Sodium 02/21/2019 0 9:13:28 AM EST 100 MG completed [facility] Docusate Sodium 100 MG Oral Capsule Docusate Sodium 02/21/2019 0 9:13:28 AM EST 100 MG completed [facility] Fluticason Propion-Salmeterol 02/21/2019 09:13:28 AM EST 1 PUFFS completed [facility] Docusate Sodium 100 MG Oral Capsule Docusate Sodium 02/21/2019 0 9:13:28 AM EST 100 MG completed [facility] Prednisone 20 MG Oral Tablet Prednisone 02/20/2019 02:42:04 AM EST 10 MG completed [facility] Prednisone 20 MG Oral Tablet Prednisone 02/20/2019 02:42:04 AM EST 10 MG completed [facility] Prednisone 20 MG Oral Tablet Prednisone 02/20/2019 02:42:04 AM EST 10 MG completed [facility] Prednisone 20 MG Oral Tablet Prednisone 02/20/2019 02:42:04 AM EST 10 MG completed [facility] celecoxib 200 MG Oral Capsule Celecoxib Celecoxib 02/19/2019 05: 19:17 PM EST 200 MG completed [facility] Indapamide 2.5 MG Oral Tablet Indapamide 02/19/2019 05:19:17 PM EST 2.5 MG completed [facility] Indapamide 2.5 MG Oral Tablet Indapamide 02/19/2019 05:19:17 PM EST 2.5 MG completed [facility] celecoxib 200 MG Oral Capsule Celecoxib Celecoxib 02/19/2019 05: 19:17 PM EST 200 MG completed [facility] celecoxib 200 MG Oral Capsule Celecoxib Celecoxib 02/19/2019 05: 19:17 PM EST 200 MG completed [facility] Indapamide 2.5 MG Oral Tablet Indapamide 02/19/2019 05:19:17 PM EST 2.5 MG completed [facility] celecoxib 200 MG Oral Capsule Celecoxib Celecoxib 02/19/2019 05: 19:17 PM EST 200 MG completed [facility] Indapamide 2.5 MG Oral Tablet Indapamide 02/19/2019 05:19:17 PM EST 2.5 MG completed [facility] Prednisone 20 MG Oral Tablet prednisone 20 mg tablet TAKE ONE TABLET BY MOUTH ONCE DAILY FOR FIVE DAYS prednisone 20 mg tablet TAKE ONE TABLET BY MOUTH ONCE DAILY FOR FIVE DAYS completed pr ednisone 20 MG Oral Tablet [facility] ([facility]) Estradiol 0.1 MG/ML Vaginal Cream estradiol 0.01% (0.1 mg/gram) vaginal cream estradiol 0.01% (0.1 mg/gram) vaginal cream completed estradiol 0.1 MG/ML Vaginal Cream [facility] ([facility]) Acetaminophen 325 MG / Oxycodone Hydroch loride 5 MG Oral Tablet oxycodone- acetaminophen 5 mg-325 mg tablet oxycodone-acetaminophen 5 mg-325 mg tablet completed acetaminop hen 325 MG / oxycodone hydrochloride 5 MG Oral Tablet [facility] ([facility]) Acetaminophen 325 MG / Oxycodone Hydroch loride 5 MG Oral Tablet oxycodone- acetaminophen 5 mg-325 mg tablet oxycodone-acetaminophen 5 mg-325 mg tablet completed acetaminop hen 325 MG / oxycodone hydrochloride 5 MG Oral Tablet [facility] ([facility]) Alprazolam 1 MG Oral Tablet alprazolam 1 mg tablet alprazolam 1 mg ta blet completed alprazolam 1 MG Oral Tablet [facility] ([facility]) Amoxicillin 500 MG / Clavulanate 125 MG Oral Tablet amoxicillin 500 mg-potassium clavulanate 125 mg tablet TAKE ONE TABLET BY MOUTH EVERY TWELVE HOURS amoxicillin 500 mg-potassium clavulanate 125 mg tablet TAKE ONE TABLET BY MOUTH EVERY TWELVE HOURS completed amoxicillin 500 MG / clavulanate 125 MG Oral Tablet [facility] ([facility]) Prednisone 20 MG Oral Tablet prednisone 20 mg tablet TAKE ONE TABLET BY MOUTH ONCE DAILY FOR FIVE DAYS prednisone 20 mg tablet TAKE ONE TABLET BY MOUTH ONCE DAILY FOR FIVE DAYS completed pr ednisone 20 MG Oral Tablet [facility] ([facility]) Methylprednisolone 2 MG Oral Tablet [Med rol] Medrol 2 mg tablet 1 tablet every other day Medrol 2 mg tablet 1 tablet every other day completed methylprednisolone 2 MG Oral Tablet [Medrol] [facility] ([facility]) Prednisone 20 MG Oral Tablet prednisone 20 mg tablet TAKE ONE TABLET BY MOUTH ONCE DAILY FOR FIVE DAYS prednisone 20 mg tablet TAKE ONE TABLET BY MOUTH ONCE DAILY FOR FIVE DAYS completed pr ednisone 20 MG Oral Tablet [facility] ([facility]) Methylprednisolone 2 MG Oral Tablet [Med rol] Medrol 2 mg tablet 1 tablet every other day Medrol 2 mg tablet 1 tablet every other day completed methylprednisolone 2 MG Oral Tablet [Medrol] [facility] ([facility]) Oxycodone Hydrochloride 5 MG Oral Tablet oxycodone 5 mg tablet TAKE 1 TO 2 TABLETS BY MOUTH EVERY FOUR HOURS NEEDED FOR PAIN MAX DAILY DOSE 12 CAPSULES oxycodone 5 mg tablet TAKE 1 TO 2 TABLETS BY MOUTH EVERY FOUR HOURS NEEDED FOR PAIN MAX DAILY DOSE 12 CAPSULES co mpleted oxycodone hydrochloride 5 MG Oral Tablet [facility] ([facility]) Acetaminophen 325 MG / Oxycodone Hydroch loride 5 MG Oral Tablet oxycodone- acetaminophen 5 mg-325 mg tablet oxycodone-acetaminophen 5 mg-325 mg tablet completed acetaminop hen 325 MG / oxycodone hydrochloride 5 MG Oral Tablet [facility] ([facility]) Methylprednisolone 4 MG Oral Tablet methylprednisolone 4 mg tablet 1 tab daily methylprednisolone 4 mg tablet 1 tab daily completed methylprednisolone 4 MG Oral Tablet [facility] ([facility]) Estradiol 0.1 MG/ML Vaginal Cream estradiol 0.01% (0.1 mg/gram) vaginal cream estradiol 0.01% (0.1 mg/gram) vaginal cream completed estradiol 0.1 MG/ML Vaginal Cream [facility] ([facility]) Doxycycline Monohydrate 100 MG Oral Caps ule doxycycline monohydrate 100 mg capsule TAKE ONE CAPSULE BY MOUTH TWICE DAILY FOR SEVEN DAYS doxycycline monohydrate 100 mg capsule TAKE ONE CAPSULE BY MOUTH TWICE DAILY FOR SEVEN DAYS completed doxycycline mo nohydrate 100 MG Oral Capsule [facility] ([facility]) Methylprednisolone 4 MG Oral Tablet methylprednisolone 4 mg tablet 1 tab daily methylprednisolone 4 mg tablet 1 tab daily completed methylprednisolone 4 MG Oral Tablet [facility] ([facility]) tramadol hydrochloride 50 MG Oral Tablet tramadol 50 mg tablet TAKE ONE TABLET BY MOUTH EVERY 6 HOURS NEEDED FOR PAIN MAX DAILY DOSE FOUR TABLETS tramadol 50 mg tablet TAKE ONE TABLET BY MOUTH EVERY 6 HOURS NEEDED FOR PAIN MAX DAILY DOSE FOUR TABLETS completed tramadol hydrochloride 50 MG Oral Tablet [facility] ([facility]) Doxycycline Monohydrate 100 MG Oral Caps ule doxycycline monohydrate 100 mg capsule TAKE ONE CAPSULE BY MOUTH TWICE DAILY FOR SEVEN DAYS doxycycline monohydrate 100 mg capsule TAKE ONE CAPSULE BY MOUTH TWICE DAILY FOR SEVEN DAYS completed doxycycline mo nohydrate 100 MG Oral Capsule [facility] ([facility]) Amoxicillin 500 MG / Clavulanate 125 MG Oral Tablet amoxicillin 500 mg-potassium clavulanate 125 mg tablet TAKE ONE TABLET BY MOUTH EVERY TWELVE HOURS amoxicillin 500 mg-potassium clavulanate 125 mg tablet TAKE ONE TABLET BY MOUTH EVERY TWELVE HOURS completed amoxicillin 500 MG / clavulanate 125 MG Oral Tablet [facility] ([facility]) 0.3 ML Enoxaparin sodium 100 MG/ML Prefi lled Syringe enoxaparin 30 mg/0.3 mL subcutaneous syringe INJECT 0.3 MILLILITERS SUBCUTANEOUSLY EVERY 12 HOURS FOR TWO WEEKS enoxaparin 30 mg/0.3 mL subcutaneous syr travis INJECT 0.3 MILLILITERS SUBCUTANEOUSLY EVERY 12 HOURS FOR TWO WEEKS completed 0.3 ML enoxaparin sodium 100 MG/ML Prefilled Syringe [facility] ([facility]) Prednisone 20 MG Oral Tablet prednisone 20 mg tablet TAKE ONE TABLET BY MOUTH ONCE DAILY FOR FIVE DAYS prednisone 20 mg tablet TAKE ONE TABLET BY MOUTH ONCE DAILY FOR FIVE DAYS completed pr ednisone 20 MG Oral Tablet [facility] ([facility]) 0.3 ML Enoxaparin sodium 100 MG/ML Prefi lled Syringe enoxaparin 30 mg/0.3 mL subcutaneous syringe INJECT 0.3 MILLILITERS SUBCUTANEOUSLY EVERY 12 HOURS FOR TWO WEEKS enoxaparin 30 mg/0.3 mL subcutaneous syr travis INJECT 0.3 MILLILITERS SUBCUTANEOUSLY EVERY 12 HOURS FOR TWO WEEKS completed 0.3 ML enoxaparin sodium 100 MG/ML Prefilled Syringe [facility] ([facility]) Ciprofloxacin 250 MG Oral Tablet ciprofl oxacin 250 mg tablet TAKE ONE TABLET BY MOUTH TWICE DAILY FOR 3 DAYS ciprofloxacin 250 mg tablet TAKE ONE TAB LET BY MOUTH TWICE DAILY FOR 3 DAYS completed ciprofloxacin 250 MG Oral Tablet [facility] ([facility]) Methylprednisolone 2 MG Oral Tablet [Med rol] Medrol 2 mg tablet 1 tablet every other day Medrol 2 mg tablet 1 tablet every other day completed methylprednisolone 2 MG Oral Tablet [Medrol] [facility] ([facility]) Ciprofloxacin 250 MG Oral Tablet ciprofl oxacin 250 mg tablet TAKE ONE TABLET BY MOUTH TWICE DAILY FOR 3 DAYS ciprofloxacin 250 mg tablet TAKE ONE TAB LET BY MOUTH TWICE DAILY FOR 3 DAYS completed ciprofloxacin 250 MG Oral Tablet [facility] ([facility]) Oxycodone Hydrochloride 5 MG Oral Tablet oxycodone 5 mg tablet TAKE 1 TO 2 TABLETS BY MOUTH EVERY FOUR HOURS NEEDED FOR PAIN MAX DAILY DOSE 12 CAPSULES oxycodone 5 mg tablet TAKE 1 TO 2 TABLETS BY MOUTH EVERY FOUR HOURS NEEDED FOR PAIN MAX DAILY DOSE 12 CAPSULES co mpleted oxycodone hydrochloride 5 MG Oral Tablet [facility] ([facility]) cefdinir 300 MG Oral Capsule cefdinir 300 mg capsule cefdinir 30 0 mg capsule completed cefdinir 300 M G Oral Capsule [facility] ([facility]) Amoxicillin 500 MG / Clavulanate 125 MG Oral Tablet amoxicillin 500 mg-potassium clavulanate 125 mg tablet TAKE ONE TABLET BY MOUTH EVERY TWELVE HOURS amoxicillin 500 mg-potassium clavulanate 125 mg tablet TAKE ONE TABLET BY MOUTH EVERY TWELVE HOURS completed amoxicillin 500 MG / clavulanate 125 MG Oral Tablet [facility] ([facility]) Doxycycline Monohydrate 100 MG Oral Caps ule doxycycline monohydrate 100 mg capsule TAKE ONE CAPSULE BY MOUTH TWICE DAILY FOR SEVEN DAYS doxycycline monohydrate 100 mg capsule TAKE ONE CAPSULE BY MOUTH TWICE DAILY FOR SEVEN DAYS completed doxycycline mo nohydrate 100 MG Oral Capsule [facility] ([facility]) Oxycodone Hydrochloride 5 MG Oral Tablet oxycodone 5 mg tablet TAKE 1 TO 2 TABLETS BY MOUTH EVERY FOUR HOURS NEEDED FOR PAIN MAX DAILY DOSE 12 CAPSULES oxycodone 5 mg tablet TAKE 1 TO 2 TABLETS BY MOUTH EVERY FOUR HOURS NEEDED FOR PAIN MAX DAILY DOSE 12 CAPSULES co mpleted oxycodone hydrochloride 5 MG Oral Tablet [facility] ([facility]) glimepiride 2 MG Oral Tablet glimepiride 2 mg tablet TAKE ONE TABLET BY MOUTH @8AM and TAKE ONE TABLET @8PM glimepiride 2 mg tablet TAKE ONE TABLET BY MOUTH @8AM and TAKE ONE TABLET @8PM complete d glimepiride 2 MG Oral Tablet [facility] ([facility]) Oxycodone Hydrochloride 5 MG Oral Tablet oxycodone 5 mg tablet TAKE 1 TO 2 TABLETS BY MOUTH EVERY FOUR HOURS NEEDED FOR PAIN MAX DAILY DOSE 12 CAPSULES oxycodone 5 mg tablet TAKE 1 TO 2 TABLETS BY MOUTH EVERY FOUR HOURS NEEDED FOR PAIN MAX DAILY DOSE 12 CAPSULES co mpleted oxycodone hydrochloride 5 MG Oral Tablet [facility] ([facility]) tramadol hydrochloride 50 MG Oral Tablet tramadol 50 mg tablet TAKE ONE TABLET BY MOUTH EVERY 6 HOURS NEEDED FOR PAIN MAX DAILY DOSE FOUR TABLETS tramadol 50 mg tablet TAKE ONE TABLET BY MOUTH EVERY 6 HOURS NEEDED FOR PAIN MAX DAILY DOSE FOUR TABLETS completed tramadol hydrochloride 50 MG Oral Tablet [facility] ([facility]) tramadol hydrochloride 50 MG Oral Tablet tramadol 50 mg tablet TAKE ONE TABLET BY MOUTH EVERY 6 HOURS NEEDED FOR PAIN MAX DAILY DOSE FOUR TABLETS tramadol 50 mg tablet TAKE ONE TABLET BY MOUTH EVERY 6 HOURS NEEDED FOR PAIN MAX DAILY DOSE FOUR TABLETS completed tramadol hydrochloride 50 MG Oral Tablet [facility] ([facility]) Acetaminophen 325 MG / Oxycodone Hydroch loride 5 MG Oral Tablet oxycodone- acetaminophen 5 mg-325 mg tablet oxycodone-acetaminophen 5 mg-325 mg tablet completed acetaminop hen 325 MG / oxycodone hydrochloride 5 MG Oral Tablet [facility] ([facility]) Estradiol 0.1 MG/ML Vaginal Cream estradiol 0.01% (0.1 mg/gram) vaginal cream estradiol 0.01% (0.1 mg/gram) vaginal cream completed estradiol 0.1 MG/ML Vaginal Cream [facility] ([facility]) cefdinir 300 MG Oral Capsule cefdinir 300 mg capsule cefdinir 30 0 mg capsule completed cefdinir 300 M G Oral Capsule [facility] ([facility]) cefdinir 300 MG Oral Capsule cefdinir 300 mg capsule cefdinir 30 0 mg capsule completed cefdinir 300 M G Oral Capsule [facility] ([facility]) Doxycycline Monohydrate 100 MG Oral Caps ule doxycycline monohydrate 100 mg capsule TAKE ONE CAPSULE BY MOUTH TWICE DAILY FOR SEVEN DAYS doxycycline monohydrate 100 mg capsule TAKE ONE CAPSULE BY MOUTH TWICE DAILY FOR SEVEN DAYS completed doxycycline mo nohydrate 100 MG Oral Capsule [facility] ([facility]) 0.3 ML Enoxaparin sodium 100 MG/ML Prefi lled Syringe enoxaparin 30 mg/0.3 mL subcutaneous syringe INJECT 0.3 MILLILITERS SUBCUTANEOUSLY EVERY 12 HOURS FOR TWO WEEKS enoxaparin 30 mg/0.3 mL subcutaneous syr travis INJECT 0.3 MILLILITERS SUBCUTANEOUSLY EVERY 12 HOURS FOR TWO WEEKS completed 0.3 ML enoxaparin sodium 100 MG/ML Prefilled Syringe [facility] ([facility]) Ciprofloxacin 250 MG Oral Tablet ciprofl oxacin 250 mg tablet TAKE ONE TABLET BY MOUTH TWICE DAILY FOR 3 DAYS ciprofloxacin 250 mg tablet TAKE ONE TAB LET BY MOUTH TWICE DAILY FOR 3 DAYS completed ciprofloxacin 250 MG Oral Tablet [facility] ([facility]) Amoxicillin 500 MG / Clavulanate 125 MG Oral Tablet amoxicillin 500 mg-potassium clavulanate 125 mg tablet TAKE ONE TABLET BY MOUTH EVERY TWELVE HOURS amoxicillin 500 mg-potassium clavulanate 125 mg tablet TAKE ONE TABLET BY MOUTH EVERY TWELVE HOURS completed amoxicillin 500 MG / clavulanate 125 MG Oral Tablet [facility] ([facility]) Methylprednisolone 2 MG Oral Tablet [Med rol] Medrol 2 mg tablet 1 tablet every other day Medrol 2 mg tablet 1 tablet every other day completed methylprednisolone 2 MG Oral Tablet [Medrol] [facility] ([facility]) Alprazolam 1 MG Oral Tablet alprazolam 1 mg tablet alprazolam 1 mg ta blet completed alprazolam 1 MG Oral Tablet [facility] ([facility]) Methylprednisolone 4 MG Oral Tablet methylprednisolone 4 mg tablet 1 tab daily methylprednisolone 4 mg tablet 1 tab daily completed methylprednisolone 4 MG Oral Tablet [facility] ([facility]) Doxycycline Monohydrate 100 MG Oral Caps ule doxycycline monohydrate 100 mg capsule TAKE ONE CAPSULE BY MOUTH TWICE DAILY FOR SEVEN DAYS doxycycline monohydrate 100 mg capsule TAKE ONE CAPSULE BY MOUTH TWICE DAILY FOR SEVEN DAYS completed doxycycline mo nohydrate 100 MG Oral Capsule [facility] ([facility]) Estradiol 0.1 MG/ML Vaginal Cream estradiol 0.01% (0.1 mg/gram) vaginal cream estradiol 0.01% (0.1 mg/gram) vaginal cream completed estradiol 0.1 MG/ML Vaginal Cream [facility] ([facility]) Methylprednisolone 4 MG Oral Tablet methylprednisolone 4 mg tablet 1 tab daily methylprednisolone 4 mg tablet 1 tab daily completed methylprednisolone 4 MG Oral Tablet [facility] ([facility]) Methylprednisolone 4 MG Oral Tablet methylprednisolone 4 mg tablet 1 tab daily methylprednisolone 4 mg tablet 1 tab daily completed methylprednisolone 4 MG Oral Tablet [facility] ([facility]) Alprazolam 1 MG Oral Tablet alprazolam 1 mg tablet alprazolam 1 mg ta blet completed alprazolam 1 MG Oral Tablet [facility] ([facility]) Ciprofloxacin 250 MG Oral Tablet ciprofl oxacin 250 mg tablet TAKE ONE TABLET BY MOUTH TWICE DAILY FOR 3 DAYS ciprofloxacin 250 mg tablet TAKE ONE TAB LET BY MOUTH TWICE DAILY FOR 3 DAYS completed ciprofloxacin 250 MG Oral Tablet [facility] ([facility]) Acetaminophen 325 MG / Oxycodone Hydroch loride 5 MG Oral Tablet oxycodone- acetaminophen 5 mg-325 mg tablet oxycodone-acetaminophen 5 mg-325 mg tablet completed acetaminop hen 325 MG / oxycodone hydrochloride 5 MG Oral Tablet [facility] ([facility]) 0.3 ML Enoxaparin sodium 100 MG/ML Prefi lled Syringe enoxaparin 30 mg/0.3 mL subcutaneous syringe INJECT 0.3 MILLILITERS SUBCUTANEOUSLY EVERY 12 HOURS FOR TWO WEEKS enoxaparin 30 mg/0.3 mL subcutaneous syr travis INJECT 0.3 MILLILITERS SUBCUTANEOUSLY EVERY 12 HOURS FOR TWO WEEKS completed 0.3 ML enoxaparin sodium 100 MG/ML Prefilled Syringe [facility] ([facility]) cefdinir 300 MG Oral Capsule cefdinir 300 mg capsule cefdinir 30 0 mg capsule completed cefdinir 300 M G Oral Capsule [facility] ([facility]) Estradiol 0.1 MG/ML Vaginal Cream estradiol 0.01% (0.1 mg/gram) vaginal cream estradiol 0.01% (0.1 mg/gram) vaginal cream completed estradiol 0.1 MG/ML Vaginal Cream [facility] ([facility]) 0.3 ML Enoxaparin sodium 100 MG/ML Prefi lled Syringe enoxaparin 30 mg/0.3 mL subcutaneous syringe INJECT 0.3 MILLILITERS SUBCUTANEOUSLY EVERY 12 HOURS FOR TWO WEEKS enoxaparin 30 mg/0.3 mL subcutaneous syr travis INJECT 0.3 MILLILITERS SUBCUTANEOUSLY EVERY 12 HOURS FOR TWO WEEKS completed 0.3 ML enoxaparin sodium 100 MG/ML Prefilled Syringe [facility] ([facility]) Prednisone 20 MG Oral Tablet prednisone 20 mg tablet TAKE ONE TABLET BY MOUTH ONCE DAILY FOR FIVE DAYS prednisone 20 mg tablet TAKE ONE TABLET BY MOUTH ONCE DAILY FOR FIVE DAYS completed pr ednisone 20 MG Oral Tablet [facility] ([facility]) Alprazolam 1 MG Oral Tablet alprazolam 1 mg tablet alprazolam 1 mg ta blet completed alprazolam 1 MG Oral Tablet [facility] ([facility]) Methylprednisolone 2 MG Oral Tablet [Med rol] Medrol 2 mg tablet 1 tablet every other day Medrol 2 mg tablet 1 tablet every other day completed methylprednisolone 2 MG Oral Tablet [Medrol] [facility] ([facility]) Ciprofloxacin 250 MG Oral Tablet ciprofl oxacin 250 mg tablet TAKE ONE TABLET BY MOUTH TWICE DAILY FOR 3 DAYS ciprofloxacin 250 mg tablet TAKE ONE TAB LET BY MOUTH TWICE DAILY FOR 3 DAYS completed ciprofloxacin 250 MG Oral Tablet [facility] ([facility]) cefdinir 300 MG Oral Capsule cefdinir 300 mg capsule cefdinir 30 0 mg capsule completed cefdinir 300 M G Oral Capsule [facility] ([facility]) Oxycodone Hydrochloride 5 MG Oral Tablet oxycodone 5 mg tablet TAKE 1 TO 2 TABLETS BY MOUTH EVERY FOUR HOURS NEEDED FOR PAIN MAX DAILY DOSE 12 CAPSULES oxycodone 5 mg tablet TAKE 1 TO 2 TABLETS BY MOUTH EVERY FOUR HOURS NEEDED FOR PAIN MAX DAILY DOSE 12 CAPSULES co mpleted oxycodone hydrochloride 5 MG Oral Tablet [facility] ([facility]) tramadol hydrochloride 50 MG Oral Tablet tramadol 50 mg tablet TAKE ONE TABLET BY MOUTH EVERY 6 HOURS NEEDED FOR PAIN MAX DAILY DOSE FOUR TABLETS tramadol 50 mg tablet TAKE ONE TABLET BY MOUTH EVERY 6 HOURS NEEDED FOR PAIN MAX DAILY DOSE FOUR TABLETS completed tramadol hydrochloride 50 MG Oral Tablet [facility] ([facility]) Alprazolam 1 MG Oral Tablet alprazolam 1 mg tablet alprazolam 1 mg ta blet completed alprazolam 1 MG Oral Tablet [facility] ([facility]) glimepiride 1 MG Oral Tablet glimepiride 1 mg tablet glimepiride 1 mg tablet completed glimepiride 1 MG Oral Tablet [facility] ([facility]) Amoxicillin 500 MG / Clavulanate 125 MG Oral Tablet amoxicillin 500 mg-potassium clavulanate 125 mg tablet TAKE ONE TABLET BY MOUTH EVERY TWELVE HOURS amoxicillin 500 mg-potassium clavulanate 125 mg tablet TAKE ONE TABLET BY MOUTH EVERY TWELVE HOURS completed amoxicillin 500 MG / clavulanate 125 MG Oral Tablet [facility] ([facility]) tramadol hydrochloride 50 MG Oral Tablet tramadol 50 mg tablet TAKE ONE TABLET BY MOUTH EVERY 6 HOURS NEEDED FOR PAIN MAX DAILY DOSE FOUR TABLETS tramadol 50 mg tablet TAKE ONE TABLET BY MOUTH EVERY 6 HOURS NEEDED FOR PAIN MAX DAILY DOSE FOUR TABLETS completed tramadol hydrochloride 50 MG Oral Tablet [facility] ([facility]) Insurance Providers Payer name Policy type / Coverage type Policy ID Covered green party ID Covered green party's relationship to leonard Policy [place] Plan Information [employer] COMMUNITY PLAN MCDO [id number] SP [id number] SELF PAY UHC COMMUNITY PLAN [id number] SP [id number] [facility] O [id number] S [id number] SELF PAY UHC COMMUNITY PLAN [id number] SP [id number] SELF PAY UHC COMMUNITY PLAN [id number] SP [id number] SELF PAY UHC COMMUNITY PLAN [id number] SP [id number] [employer] COMMUNITY PLAN MCDO [id number] SP [id number] SELF PAY UHC COMMUNITY PLAN [id number] SP [id number] SELF PAY UHC COMMUNITY PLAN [id number] SP [id number] [employer] COMMUNITY PLAN MCDO [id number] SP [id number] ANSI-Medicaid [id number] ANSI-Not a Secondary Insurance [id number] ANSI-Medicaid [id number] ANSI-Not a Secondary Insurance [id number] [facility] Plan - Medicaid Medicaid [id number] Self [id number] ANSI-Not a Secondary Insurance [id number] ANSI-Medicaid [id number] ANSI-Medicaid [id number] ANSI-Not a Secondary Insurance [id number] ANSI-Medicaid [id number] ANSI-Not a Secondary Insurance [id number] ANSI-Not a Secondary Insurance [id number] ANSI-Medicaid [id number] ANSI-Not a Secondary Insurance [id number] ANSI-Medicaid [id number] ANSI-Not a Secondary Insurance [id number] ANSI-Medicaid [id number] ANSI-Not a Secondary Insurance [id number] ANSI-Medicaid [id number] ANSI-Medicaid [id number] ANSI-Not a Secondary Insurance [id number] [facility] Plan Commercial [id number] Self [id number] ANSI-Medicaid [id number] ANSI-Not a Secondary Insurance [id number] ANSI-Not a Secondary Insurance [id number] ANSI-Medicaid [id number] ANSI-Not a Secondary Insurance [id number] ANSI-Medicaid [id number] ANSI-Not a Secondary Insurance [id number] ANSI-Medicaid [id number] ANSI-Not a Secondary Insurance [id number] ANSI-Medicaid [id number] ANSI-Medicaid [id number] ANSI-Not a Secondary Insurance [id number] ANSI-Not a Secondary Insurance [id number] ANSI-Medicaid [id number] ANSI-Not a Secondary Insurance [id number] ANSI-Medicaid [id number] ANSI-Medicaid [id number] ANSI-Not a Secondary Insurance [id number] ANSI-Not a Secondary Insurance [id number] ANSI-Medicaid [id number] ANSI-Not a Secondary Insurance [id number] ANSI-Medicaid [id number] ANSI-Not a Secondary Insurance [id number] ANSI-Medicaid [id number] ANSI-Medicaid 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 Ua Leuko Laboratory test result [facility] ([facility]) Protein [Presence] in Urine by Test strip Laboratory test result [facility] ([facility]) Ketones [Presence] in Urine by Test strip 15 mg/dL [facility] ([facility]) Color of Urine Laboratory test result [facility] ([facility]) Blood [Presence] in Urine by Visual Laboratory test result [facility] ([facility]) pH of Urine by Test strip 6.5 5.0-7.5 [facility] ([facility]) Ua Specific [place] 1.020 1.003-1.030 MEDE NT ([facility]) Clarity of Urine Laboratory test result [facility] ([facility]) Urobilinogen [Mass/volume] in Urine by Test strip 0.2 E.U./dL 0.0-1.0 [facility] ([facility]) Bilirubin.total [Presence] in Urine by Test strip Laboratory test res ult [facility] ([facility]) ID Date Data Source [id number] 01/10/2020 01:44:00 PM EST [facility] ([facility] Name Value Range Interpretation Code Description Data Tashia rce(s) Supporting Document(s) Glucose [Presence] in Urine Laboratory test result [facility] ([facility]) Ua Nitrite Laboratory test result [facility] ([facility]) Ua Leuko Laboratory test result [facility] ([facility]) Protein [Presence] in Urine by Test strip Laboratory test result [facility] ([facility]) Ketones [Presence] in Urine by Test strip 15 mg/dL [facility] ([facility]) Color of Urine Laboratory test result [facility] ([facility]) Blood [Presence] in Urine by Visual Laboratory test result [facility] ([facility]) Ua Specific [place] 1.025 1.003-1.030 MEDE NT ([facility]) Clarity of Urine Laboratory test result [facility] ([facility]) pH of Urine by Test strip 6.0 5.0-7.5 [facility] ([facility]) Urobilinogen [Mass/volume] in Urine by Test strip 0.2 E.U./dL 0.0-1.0 EVELYNE ([facility]) Bilirubin.total [Presence] in Urine by Test strip Laboratory test res ult EVELYNE ([facility]) ID Date Data Source [id number] 12/13/2019 12:42:00 PM EDT [facility] Run: 12/13/19 1243 INTERFACED REPORT Name: Cassie Jiang Age/Sex: 64/F Location: [facility] Acct: [id number] Unit: [id number] Status: REG REF Room/Bed: Re12/11/19 Disch: Att Dr: Monica Bal MD Specimen #: [id number] Ordered : 12/11/1908/24/2102 Collected : 12/11/1908/25/1547 By: OFFICE Received: 12/11/1908/24/2102 By: EVERARDO Source: URINE CATH Specimen Description: Procedure Result - COLONY COUNT Final COLONY COUNT GREATER THAN 100,000 CFU/ML URINE CULTURE Final [facility] POSSIBLE ENTEROCOCCI MANY Organism 1 ENTEROCOCCUS FAECALIS 1. ENTEROCOCCUS FAECALIS DONNA Int --------- --- AMPICILLIN <=2 S DAPTOMYCIN <=1 S CIPROFLOXACIN <=1 S GENTAMICIN 500 <=500 S LEVOFLOXACIN <=1 S NITROFURANTOIN <=32 S PENICILLIN 2 S RIFAMPIN > 2 R STREPTOMYCIN SYNERGY SCREEN <=1000 S TETRACYCLINE >8 R VANCOMYCIN 1 S Streptomycin Synergy Screen S Gentamicin Synergy Screen S S = Susceptible MS = Moderately Susceptible I = Intermediate R = Resistant TANIA = Beta Lactamase Positive DONNA = MCG/mL BLANK = Not Tested or Advisable URINE CULTURE Preliminary (Corrected) [facility] POSSIBLE ENTEROCOCCI MANY END OF REPORT Name Value Range Interpretation Code Description Data Tashia [facility](s) Supporting Document(s) ID Date Data Source [id number] 12/11/2019 03:48:00 PM EDT [facility] ([facility] Name Value Range Interpretation Code Description Data Tashia jaime(s) Supporting Document(s) Bacteria identified in Urine by Culture Laboratory test result [facility] ([facility]) <content> --------</content>
<content>Run: 12/13/19 1243 INTERFACED REPORT</content>
<content> </content>
<content>Name: Cassie Jiang Age/Sex: 64/F Location: [facility]</content>
<content>Acct: [id number] Unit: [id number] Status: REG REF Room/Bed:</content>
<content>Re12/11/19 Disch: Junior Dr: Monica Bal MD</content>
<content> </content>
<content></content>
<content>Specimen #: [id number] Ordered : 12/11/1908/24/2102</content>
<content>Collected : 12/11/1908/25/1547 By: OFFICE Received: 12/11/1908/24/2102 By: EVERARDO</content>
<content>Source: URINE CATH Specimen Description:</content>
<content></content>
<content> </conten t>
<content>Procedure Result</content>
<content> </content>
<content>COLONY COUNT Final</content>
<content>COLONY COUNT GREATER THAN 100,000 CFU/ML</content>
<content></content>
<content>URINE CULTURE Final</content>
<content>[facility] POSSIBLE ENTEROCOCCI MANY</content>
<content></content>
<content></content>
<content>Organism 1 ENTEROCOCCUS FAECALIS</content>
<content></content>
<content>1. ENTEROCOCCUS FAECALIS</content>
<content>DONNA Int</content>
<content>--------- ---</content>
<content>AMPICILLIN <=2 S</content>
<content>DAPTOMYCIN <=1 S</content>
<content>CIPROFLOXACIN <=1 S</content>
<content>GENTAMICIN 500 <=500 S</content>
<content>LEVOFLOXACIN <=1 S</content>
<content>NITROFURANTOIN <=32 S</content>
<content>PENICILLIN 2 S</content>
<content>RIFAMPIN >2 R</content>
<content>STREPTOMYCIN SYNERGY SCREEN <=1000 S</content>
<content>TETRACYCLINE >8 R</content>
<content>VANCOMYCIN 1 S</content>
<content></content>
<content>Streptomycin Synergy Screen S</content>
<content>Gentamicin Synergy Screen S</content>
<content> </content>
<content>S = Susceptible</content>
<content>MS = Moderately Susceptible</content>
<content>I = Intermediate</content>
<content>R = Resistant</content>
<content>TANIA = Beta Lactamase Positive</content>
<content>DONNA = MCG/mL</content>
<content>BLANK = Not Tested or Advisable</content>
<content></content>
<content>URINE CULTURE Preliminary (Corrected)</content>
<content>[facility] POSSIBLE ENTEROCOCCI MANY</content>
<content></content>
<content></content>
<content> </content>
<content></content>
<content></content>
<cont ent></content>
<content></content>
<content></content>
<content></content>
<content> END OF REPORT </content>
<content></content> ID Date Data Source [id number] 11/28/2019 12:00:00 AM EDT MARILIA ([facility]) Name Value Range Interpretation Code Description Data Tashia rce(s) Supporting Document(s) ID Date Data Source [id number] 11/28/2019 12:00:00 AM EDT MARILIA ([facility]) Name Value Range Interpretation Code Description Data Tashia rce(s) Supporting Document(s) ID Date Data Source [id number] 11/28/2019 12:00:00 AM EDT MARILIA ([facility]) Name Value Range Interpretation Code Description Data Tashia rce(s) Supporting Document(s) ID Date Data Source [id number] 11/28/2019 12:00:00 AM EDT [facility]IA ([facility]) Name Value Range Interpretation Code Description Data Tashia rce(s) Supporting Document(s) ID Date Data Source [id number] 11/28/2019 12:00:00 AM EDT [facility] Name Value Range Interpretation Code Description Data Tashia rce(s) Supporting Document(s) SARS-CoV-2 [facility] This lab was ordered by [facility]-COVID19 and reported by [facility]. ID Date Data Source [id number] 11/28/2019 12:00:00 AM EDT [facility]IA ([facility]) Name Value Range Interpretation Code Description Data Tashia rce(s) Supporting Document(s) ID Date Data Source [id number] 11/28/2019 12:00:00 AM EDT [facility]IA ([facility]) Name Value Range Interpretation Code Description Data Tashia rce(s) Supporting Document(s) ID Date Data Source [id number] 11/27/2019 11:57:00 AM EDT [facility] ([facility] Name Value Range Interpretation Code Description Data Tashia rce(s) Supporting Document(s) Protein [Presence] in Urine by Test strip Laboratory test result [facility] ([facility]) Glucose [Presence] in Urine Laboratory test result [facility] ([facility]) Ua Nitrite Laboratory test result [facility] ([facility]) Color of Urine Laboratory test result [facility] ([facility]) Ua Leuko Laboratory test result [facility] ([facility]) Blood [Presence] in Urine by Visual Laboratory test result [facility] ([facility]) Clarity of Urine Laboratory test result [facility] ([facility]) Ketones [Presence] in Urine by Test strip Laboratory test result [facility] ([facility]) Ua Specific [place] Laboratory test result 1.003-1.030 [facility] ([facility]) Urobilinogen [Mass/volume] in Urine by Test strip 0.2 E.U./dL 0.0-1.0 [facility] ([facility]) Bilirubin.total [Presence] in Urine by Test strip Laboratory test res ult [facility] ([facility]) pH of Urine by Test strip 5.5 5.0-7.5 [facility] ([facility]) ID Date Data Source [id number] 11/23/2019 12:00:00 AM EDT MARILIA ([facility]) Name Value Range Interpretation Code Description Data Tashia rce(s) Supporting Document(s) ID Date Data Source [id number] 11/23/2019 12:00:00 AM EDT [facility] ([facility]) Name Value Range Interpretation Code Description Data Tashia rce(s) Supporting Document(s) ID Date Data Source [id number] 11/23/2019 12:00:00 AM EDT [facility] ([facility]) Name Value Range Interpretation Code Description Data Tashia rce(s) Supporting Document(s) ID Date Data Source [id number] 11/23/2019 12:00:00 AM EDT MARILIA ([facility]) Name Value Range Interpretation Code Description Data Tashia rce(s) Supporting Document(s) ID Date Data Source [id number] 11/23/2019 12:00:00 AM EDT MARILIA ([facility]) Name Value Range Interpretation Code Description Data Tashia rce(s) Supporting Document(s) ID Date Data Source [id number] 11/23/2019 12:00:00 AM EDT [facility] Name Value Range Interpretation Code Description Data Tashia rce(s) Supporting Document(s) SARS-CoV-2 [facility] This lab was ordered by [facility]-COVID19 and reported by [facility]. ID Date Data Source [id number] 11/23/2019 12:00:00 AM EDT MARILIA ([facility]) Name Value Range Interpretation Code Description Data Tashia rce(s) Supporting Document(s) ID Date Data Source [id number] 11/23/2019 12:00:00 AM EDT MARILIA ([facility]) Name Value Range Interpretation Code Description Data Tashia rce(s) Supporting Document(s) ID Date Data Source [id number] 11/02/2019 12:00:00 AM EDT [facility]ILIA ([facility]) Name Value Range Interpretation Code Description Data Tashia rce(s) Supporting Document(s) ID Date Data Source [id number] 11/02/2019 12:00:00 AM EDT [facility] ([facility]) Name Value Range Interpretation Code Description Data Tashia rce(s) Supporting Document(s) ID Date Data Source [id number] 11/02/2019 12:00:00 AM EDT [facility] ([facility]) Name Value Range Interpretation Code Description Data Tashia rce(s) Supporting Document(s) ID Date Data Source [id number] 11/02/2019 12:00:00 AM EDT [facility]ILIA ([facility]) Name Value Range Interpretation Code Description Data Tashia rce(s) Supporting Document(s) ID Date Data Source [id number] 11/02/2019 12:00:00 AM EDT [facility]IL[facility] ([facility]) Name Value Range Interpretation Code Description Data Tashia rce(s) Supporting Document(s) ID Date Data Source [id number] 11/02/2019 12:00:00 AM EDT [facility]IL[facility] ([facility]) Name Value Range Interpretation Code Description Data Tashia rce(s) Supporting Document(s) ID Date Data Source [id number] 11/02/2019 12:00:00 AM EDT [facility] ([facility]) Name Value Range Interpretation Code Description Data Tashia rce(s) Supporting Document(s) ID Date Data Source [id number] 11/02/2019 12:00:00 AM EDT [facility] ([facility]) Name Value Range Interpretation Code Description Data Tashia rce(s) Supporting Document(s) ID Date Data Source [id number] 11/02/2019 12:00:00 AM EDT [facility] Name Value Range Interpretation Code Description Data Tashia rce(s) Supporting Document(s) SARS-CoV-2 [facility] This lab was ordered by [facility]-COVID19 and reported by [facility]. ID Date Data Source [id number] 11/02/2019 12:00:00 AM EDT [facility]ILIA ([facility]) Name Value Range Interpretation Code Description Data Tashia rce(s) Supporting Document(s) ID Date Data Source [id number] 11/02/2019 12:00:00 AM EDT [facility]ILIA ([facility]) Name Value Range Interpretation Code Description Data Tashia rce(s) Supporting Document(s) ID Date Data Source [id number] 10/11/2019 11:25:00 AM EDT [facility] ([facility]) Name Value Range Interpretation Code Description Data Tashia rce(s) Supporting Document(s) Bacteria identified in Urine by Culture Laboratory test result [facility] ([facility]) <content>Run: 10/13/19 0828 INTERFACED REPORT</content>
<content> ntent>Name: Cassie Jiang Age/Sex: 64/F Location: [facility]</content>
<content>Acct: [id number] Unit: [id number] Status: REG REF Room/Bed:</content>
<content>Re10/11/19 Disch: Junior Dr: Amira Garg</content>
<content> </content>
<content></content>
<content>Specimen #: [id number] Ordered : 10/11/1908/24/1720</content>
<content>Collected : 10/11/1908/24/1124 By: OFFICE Received: 10/11/1908/24/1720 By: EVERARDO</content>
<content>Source: URINE CATH Specimen Description:</content>
<content></content>
<content> </conten t>
<content>Procedure Result</content>
<content> </content>
<content>COLONY COUNT Final</content>
<content>COLONY COUNT LESS THAN 1,000 CFU/ML</content>
<content></content>
<content>URINE CULTURE Final</content>
<content>NO GROWTH NO GROWTH <18 HOURS</ content>
<content>NO GROWTH 42 HOURS</content>
<content></content>
<content></content>
<content>URI NE CULTURE Preliminary (Corrected)</content>
<content>NO GROWTH NO GROWTH <18 HOURS</content>
<content></content>
<content></content>
<content> </content>
<content></content>
<content></content>
<cont ent></content>
<content></content>
<content></content>
<content></content>
<content></content>
<content ></content>
<content></content>
<content></content>
<content></renuka nt>
<content> </content>
<content></content>
<content></content>
<content></conten t>
<content></content>
<content></content>
<content></content>
< content></content>
<content></content>
<content></content>
<content></content>
<co ntent></content>
<content></content>
<content></content>
<content></ content>
<content></content>
<content></content>
<content></content>
<content ></content>
<content></content>
<content></content>
<content></renuka nt>
<content></content>
<content> END OF REPORT </content>
<content></content> ID Date Data Source [id number] 10/13/2019 08:27:00 AM [facility] Run: 10/13/19 0828 INTERFACED REPORT Name: Cassie Jiang Age/Sex: 64/F Location: LAB Acct: [id number] Unit: [id number] Status: REG REF Room/Bed: Re10/11/19 Disch: Junior Dr: Amira Garg Specimen #: [id number] Ordered : 10/11/1908/24/1720 Collected : 10/11/1908/24/1124 By: OFFICE Received: 10/11/1908/24/1720 By: GMCORNELL Source: URINE CATH Specimen Description: Procedure Result - COLONY COUNT Final COLONY COUNT LESS THAN 1,000 CFU/ML URINE CULTURE Final NO GROWTH NO GROWTH <18 HOURS NO GROWTH 42 HOURS URINE CULTURE Preliminary (Corrected) NO GROWTH NO GROWTH <18 HOURS END OF REPORT Name Value Range Interpretation Code Description Data Tashia rce(s) Supporting Document(s) ID Date Data Source [id number] 10/11/2019 11:21:00 AM EDT [facility] ([facility]) Name Value Range Interpretation Code Description Data Tashia rce(s) Supporting Document(s) Ua Nitrite Laboratory test result [facility] ([facility]) Protein [Presence] in Urine by Test strip 30 mg/dL [facility] ([facility]) Glucose [Presence] in Urine Laboratory test result [facility] ([facility]) Blood [Presence] in Urine by Visual Laboratory test result [facility] ([facility]) Color of Urine Laboratory test result [facility] ([facility]) Ua Leuko Laboratory test result [facility] ([facility]) Clarity of Urine Laboratory test result [facility] ([facility]) Ua Specific [place] Laboratory test result 1.003-1.030 [facility] ([facility]) Ketones [Presence] in Urine by Test strip 15 mg/dL [facility] ([facility]) pH of Urine by Test strip 5.0 5.0-7.5 [facility] ([facility]) Bilirubin.total [Presence] in Urine by Test strip Laboratory test res ult [facility] ([facility]) Urobilinogen [Mass/volume] in Urine by Test strip 0.2 E.U./dL 0.0-1.0 [facility] ([facility]) ID Date Data Source [id number] 09/06/2019 09:15:00 AM [facility] Run: 09/06/19 0915 INTERFACED REPORT Name: Cassie Jiang Age/Sex: 64/F Location: [facility] Acct: [id number] Unit: [id number] Status: REG REF Room/Bed: Re09/04/19 Disch: Att Dr: Monica Bal MD Specimen #: [id number] Ordered : 09/04/19 Collected : 09/04/19 By: office Received: 09/04/19 By: LINDA Source: URINE CATH Specimen Description: Comments: UCATH Has been collected UCC Procedure Result COLONY COUNT Final COLONY COUNT GREATER THAN 100,000 CFU/ML URINE CULTURE Final COLIFORMS MANY Organism 1 KLEBSIELLA PNEUMONIAE 1. KLEBSIELLA PNEUMONIAE DONNA Int --------- --- AMIKACIN <=16 S AMPICILLIN <=8 R AMPICILLIN/SULBACTAM <=8/4 S AZTREONAM <=4 S CEFAZOLIN <=2 S CEFEPIME <=2 S CEFTAZIDIME <=1 S CEFTRIAXONE <=1 S CIPROFLOXACIN <=1 S GENTAMICIN <=4 S IMIPENEM <=1 S LEVOFLOXACIN <=2 S MEROPENEM <=1 S NITROFURANTOIN 64 I TETRACYCLINE <=4 S TOBRAMYCIN <=4 S TRIMETHOPRIM/SULFAMETHOXAZOLE <=2/38 S PIPERACILLIN/TAZOBACTAM <=16 S S = Susceptible MS = Moderately Susceptible I = Intermediate R = Resistant TANIA = Beta Lactamase Positive DONNA = MCG/mL BLANK = Not Tested or Advisable URINE CULTURE Preliminary (Corrected) COLIFORMS MANY END OF REPORT Name Value Range Interpretation Code Description Data Tashia [facility](s) Supporting Document(s) ID Date Data Source [id number] 09/04/2019 12:10:00 PM EDT [facility] ([facility]) Name Value Range Interpretation Code Description Data Tashia e(s) Supporting Document(s) Bacteria identified in Urine by Culture Laboratory test result [facility] ([facility]) <content> --------</content>
<content>Run: 09/06/19 0915 INTERFACED REPORT</content>
<content> </content>
<content>Name: Cassie Jiang Age/Sex: 64/F Location: [facility]</content>
<content>Acct: [id number] Unit: [id number] Status: REG REF Room/Bed:</content>
<content>Re09/04/19 Disch: Att Dr: Monica Bal MD</content>
<content> </content>
<content></content>
<content>Specimen #: [id number] Ordered : 09/04/19</content>
<content>Collected : 09/04/19 By: office Received: 09/04/19 By: LINDA</content>
<content>Source: URINE CATH Specimen Description:</content>
<content>Comments: UCATH</content>
<content>Has been collected</content>
<content>UCC</content>
<content></content>
<content> </content>
<content>Procedure Result</content>
<content> </content>
<content>COLONY COUNT Final</content>
<content>COLONY COUNT GREATER THAN 100,000 CFU/ML</content>
<content></content>
<content>URINE CULTURE Final</content>
<content>COLIFORMS MANY</content>
<content></content>
<content></content>
<content> Organism 1 KLEBSIELLA PNEUMONIAE</content>
<content></content>
<content>1. KLEBSIELLA PNEUMONIAE</content>
<content>DONNA Int</content>
<content>--------- ---</content>
<content>AMIKACIN <=16 S</content>
<content>AMPICILLIN <=8 R</content>
<content>AMPICILLIN/SULBACTAM <=8/4 S</content>
<content>AZTREONAM <=4 S</content>
<content>CEFAZOLIN <=2 S</content>
<content>CEFEPIME <=2 S</content>
<content>CEFTAZIDIME <=1 S</content>
<content>CEFTRIAXONE <=1 S</content>
<content>CIPROFLOXACIN <=1 S</content>
<content>GENTAMICIN <=4 S</content>
<content>IMIPENEM <=1 S</content>
<content>LEVOFLOXACIN <=2 S</content>
<content>MEROPENEM <=1 S</content>
<content>NITROFURANTOIN 64 I</content>
<content>TETRACYCLINE <=4 S</content>
<content>TOBRAMYCIN <=4 S</content>
<content>TRIMETHOPRIM/SULFAMETHOXAZOLE <=2/38 S</content>
<content>PIPERACILLIN/TAZOBACTAM <=16 S</content>
<content></content>
<content>S = Susceptible</content>
<content>MS = Moderately Susceptible</content>
<content>I = Intermediate</content>
<content>R = Resistant</content>
<content>TANIA = Beta Lactamase Positive</content>
<content>DONNA = MCG/mL</content>
<content>BLANK = Not Tested or Advisable</content>
<content></content>
<content>URINE CULTURE Preliminary (Corrected)</content>
<content>COLIFORMS MANY</content>
<content> </content>
<content></content>
<content> </content>
<cont ent></content>
<content> END OF REPORT </content>
<content></content> ID Date Data Source [id number] 09/04/2019 12:09:00 PM EDT [facility] ([facility] Name Value Range Interpretation Code Description Data Tashia rce(s) Supporting Document(s) Protein [Presence] in Urine by Test strip Laboratory test result [facility] ([facility]) Ua Nitrite Laboratory test result [facility] ([facility]) Glucose [Presence] in Urine Laboratory test result [facility] ([facility]) Ketones [Presence] in Urine by Test strip Laboratory test result [facility] ([facility]) Ua Leuko Laboratory test result [facility] ([facility]) Blood [Presence] in Urine by Visual Laboratory test result [facility] ([facility]) Color of Urine Laboratory test result [facility] ([facility]) Ua Specific [place] Laboratory test result 1.003-1.030 [facility] ([facility]) Clarity of Urine Laboratory test result [facility] ([facility]) pH of Urine by Test strip 5.0 5.0-7.5 [facility] ([facility]) Bilirubin.total [Presence] in Urine by Test strip Laboratory test res ult [facility] ([facility]) Urobilinogen [Mass/volume] in Urine by Test strip 0.2 E.U./dL 0.0-1.0 [facility] ([facility]) ID Date Data Source [id number] 09/04/2019 12:03:00 PM EDT [facility] ([facility] Name Value Range Interpretation Code Description Data Tashia rce(s) Supporting Document(s) Protein [Presence] in Urine by Test strip Laboratory test result [facility] ([facility]) Glucose [Presence] in Urine Laboratory test result [facility] ([facility]) Blood [Presence] in Urine by Visual Laboratory test result [facility] ([facility]) Ua Leuko Laboratory test result [facility] ([facility]) Ua Nitrite Laboratory test result [facility] ([facility]) Color of Urine Laboratory test result [facility] ([facility]) Clarity of Urine Laboratory test result [facility] ([facility]) Ketones [Presence] in Urine by Test strip Laboratory test result [facility] ([facility]) Ua Specific [place] Laboratory test result 1.003-1.030 [facility] ([facility]) Urobilinogen [Mass/volume] in Urine by Test strip 0.2 E.U./dL 0.0-1.0 [facility] ([facility]) pH of Urine by Test strip 5.0 5.0-7.5 [facility] ([facility]) Bilirubin.total [Presence] in Urine by Test strip Laboratory test res ult [facility] ([facility]) ID Date Data Source [id number] 06/21/2019 10:46:00 AM EDT [facility] [address] [place] [address] [phone] NAME SEX PT STATUS ACCOUNT NUMBER CASSIE JIANG REG REF [id number] ORDERING PHYSICIAN LOCATION MEDICAL RECORD NO. Robbi RODRIGES-C [facility] [id number] ATTENDING PHYSICIAN DATE OF DATE OF EXAM/TIME Kimani Ann 1955 06/21/19 / 1018 TYPE / EXAM Xray Knee Comp 4 or more RT REASON FOR EXAM post op, ortho COMPARISON: May 11, 2019 FINDINGS: Stable appearance of intramedullary otis in the right femur. Callus formation around the fracture site. Moderate degenerative changes at the knee joint. IMPRESSION: Stable appearance of intramedullary otis fixation of the right femur. No evidence of hardware complication or failure. Reported By Alcides Waldrop MD on 06/21/191045 Signed By Alcides Waldrop MD on 06/21/191045 Date Time CC: Alcides Waldrop MD; Kimani Ann M.D. Techn: FROSA Trans Dt/Tm: Trans by: DT Prt Dt/Tm: [id number]: Total DLP = 0.00 mGy-cm Fluoroscopy Time (in secs): Name Value Range Interpretation Code Description Data Tashia rce(s) Supporting Document(s) ID Date Data Source [id number] 06/21/2019 10:44:00 AM EDT [facility] [address] [facility] [place] [id number] [phone] NAME SEX PT STATUS ACCOUNT NUMBER CASSIE JIANG REG REF [id number] ORDERING PHYSICIAN LOCATION MEDICAL RECORD NO. Robbi PA-C [facility] [id number] ATTENDING PHYSICIAN DATE OF DATE OF EXAM/TIME Kimani Ann 1955 06/21/19 / 1038 TYPE / EXAM XRAY FEMUR RT 2 VIEW REASON FOR EXAM post op, ortho COMPARISON: March 29, 2019 FINDINGS: The patient is remotely post ORIF of the right femur. There is no evidence of hardware complicationor failure. There has been interval removal of what was the most proximal screws. Callus formation is seen around the fracture site in the distal right femur. IMPRESSION: Stable appearance of intramedullary otis in the right femur. Callus formation in the region of fracture. Reported By Alcides Waldrop MD on 06/21/19 1044 Signed By Alcides Waldrop MD on 06/21/19 1045 Date Time CC: Alcides Waldrop MD; Kimani Ann M.D. Techn: FROSA Trans Dt/Tm: Trans by: DT Prt Dt/Tm: [id number]: Total DLP = 0.00 mGy-cm Fluoroscopy Time (in secs): Name Value Range Interpretation Code Description Data Tashia rce(s) Supporting Document(s) ID Date Data Source [id number] 06/21/2019 10:43:00 AM EDT [facility] Patient Name: CASSIE JIANG : 1955 Sex: F Pt Unit #: [id number] [facility] Visit Date/Time: 06/21/19 Primary Insurance: [facility] Secondary Insurance: Self Pay Intake Vital Signs 06/21/19 10:46 BP 132/84 Respiration 18 Pulse 94 Pulse Oximetry (%) 96 Intake Visit Reasons: Post op visit (orthopedics) Is patient in pain?: Yes Pain scale (1-10): 7 Allergies simvastatin [From Zocor] Allergy (Severe, Verified 04/03/19 10:39) Anaphylaxis gatifloxacin [From Tequin] Allergy (Mild, Verified 04/03/19 10:39) Erythema rofecoxib [From Vioxx] Allergy (Mild, Verified 04/03/19 10:39) Urticaria theophylline [From Gonzalo-Dur] Allergy (Mild, Verified 04/03/19 10:42) MASSIVE HEAD PAIN HIV Testing Offer - ages 13-64 Requirement for HIV testing offer been met?: Consents to testing today/Pretest education received and acknowledged Coronavirus Screening Screening Have you traveled outside of [facility] or [facility] in the last 14 days.: No Has patient experienced coronavirus symptoms: No PFSH Medical History Arthritis (Acute) Asthma (Acute) Ataxia (Acute) Chronic constipation (Acute) Chronic pain (Acute) DDD (degenerative disc disease) (Acute) Depression (Acute) Diastolic CHF (Acute) Fibromyalgia (Acute) GERD (gastroesophageal reflux disease) (Acute) Hyperalgesia (Acute) Hyperlipidemia (Acute) Hypertension (Acute) Hypothyroid (Acute) Osteoporosis (Acute) Sleep apnea (Acute) Type 2 diabetes mellitus (Acute) UTI (urinary tract infection) (Acute) Vitamin D deficiency (Acute) Surgical History History of orthopedic surgery (Acute) History of surgery (Acute 02/20/19) Social History Does the Patient have a Healthcare Proxy: Yes Does Patient have a DNR?: No Does Patient have a Living Will?: No Does the Patient have a MOLST?: No Advance Directives on File or in chart?: No (will complete) Hx Recent Travel (where): No HPI Additional HPI HPI Details: Patient is a 63 year old female, here for an 11 week post op of the right distal femur screw removal, surgery was performed on 04/03/19. Patient has no showed her orthopedic follow-up appointments since her date of surgery.Today, she is experiencing pain in the knee with bending the knee. She is ambulating with a walker at home. She presents in a wheelchair today. She is not sleeping well. She has noticed an increase in pain of the right knee over the last week and a half. Patient has not been to outpatient therapy, due to the Covid-19, she will need a new script for therapy . She is taking Tramadol for discomfort with no relief. Orthopedic General Post-Op History of Present lllness Current symptoms: Denies fever(s) or limited range of motion Review of Systems Const Denies anorexia, Denies excessive sweating, Denies fatigue, Denies fever(s), Denies headache(s), Denies weight gain and Denies weight loss Eyes Denies blurry vision, Denies change in vision, Denies dry eyes, Denies irritation, Denies itchy eyesand Denies loss of vision ENT Denies abnormal hearing, Denies dysphagia, Denies dizziness, Denies headache(s), Denies lip swelling, Denies nasal congestion, Denies nasal discharge, Denies disequilibrium, Denies sinus pain,Denies sore throat and Denies throat swelling Card Denies chest pain, Denies pedal edema, Denies lightheadedness, Denies palpitations and Denies dyspnea Resp Denies cough, Denies excessive phlegm production, Denies pain on inspiration, Denies dyspnea and Denies wheezing GI Denies abdominal pain, Denies change in bowel habits, Denies dysphagia, Denies early satiety, Deniesheartburn, Denies diarrhea, Denies nausea and Denies vomiting Denies abnormal vaginal bleeding, Denies difficulty voiding, Denies pelvic pain, Denies urinary incontinence and Denies urinary urgency Musc Denies back pain, Reports arthralgias (right knee), Denies limited range of motion, Denies muscle cramps and Denies muscle weakness Skin/Breast Denies breast pain, Denies change in pigmentation, Denies lesions, Denies nail changes, Denies rash and Denies unusual bruising Neuro Denies abnormal hearing, Denies dizziness, Denies headache(s), Denies loss of vision, Denies memory loss, Denies paresthesias and Denies disequilibrium Psych Denies abnormal sleep pattern, Denies anxiety, Denies change in appetite, Denies depression, Denies irritability and Denies memory loss Endo Denies cold intolerance, Denies excessive sweating, Denies fatigue, Denies polyphagia, Denies polydipsia, Denies polyuria and Denies palpi tations Darrel/Lymph Denies easy bleeding, Denies easy bruising and Denies lymphadenopathy Aller/Immun Denies urticaria, Denies itchy eyes, Denies lip swelling, Denies seasonal rhinorrhea, Denies throat swelling and Denies wheezing Exam Const General: cooperative, not healthy appearing and no acute distress Nutritional Appearance: obese Orientation: alert, awake and oriented x3 HENOK Head: normal to inspection, normocephalic and atraumatic Eyes General: appearance normal, both eyes and all related structures Pupils: PERRL Neck Neck: normal visual inspection, full ROM and nontender Chest Chest: normal inspection of the chest Resp Effort Inspection: normal respiratory effort Skin Lesions: no lesions Rashes: no rashes Trauma: no lacerations or abrasions Neuro General: patient alert, patient awake and patient oriented x3 Cognition: normal cognition Speech: speech normal Motor: muscle tone normal throughout Extrem Other: Examination of the right lower extremity reveals a well-healed incision over the anterior aspect of the right knee joint. She has mild soft tissue swelling about the right knee but no rightknee effusion. Range of motion of the right knee is possible from 0 to 100 degrees. She has joint line tenderness medially and laterally at the level of the right knee joint. Ligament stability of the right knee in regards to stress testing in extension as well as in 30 degrees of flexion is excellent. Paula's and pivot shift tests remain negative. Ipsilateral hip exam is normal. Her extensor mechanism is intact. She has a negative Homans test. Psych Appearance: grossly normal Thought Process: normal Thought Content: normal Insight: insight good Assessment Plan Assessment Plan (1) Encounter for orthopedic follow-up care: Code(s): Z47.89 - Encounter for other orthopedic aftercare (2) Osteoarthritis of right knee: Status: Acute Code(s): M17.11 - Unilateral primary osteoarthritis, right knee SNOMED Code(s): 997979736980854 Category: Medical Plan - Cesario Gao, MD: Patient is status post retrograde IM rodding for right distal femur fracture. X-rays obtained todayshow that the fracture is gone to heal with hypertrophic callus formation. None of the distal screws through the otis have backed out. Patient is noted to have advanced arthritic changes within her right knee joint. She states that she has had intra-articular injections done in the past with temporizing benefit. I would not consider her a good candidate for knee replacement surgery relatedto a number of factors including chronic pain syndrome as well as morbid obesity. I suggested repeating the intra-articular injection which was done at this clinic visit today using 40 mg of triamcinolone and 5 cc of Xylocaine. Patient will follow-up with me in 2 months to gauge response to treatment. All questions were answered. Electronically Signed By: <Electronically signed by Cesario Gao MD> Date/Time Signed: 06/21/19 1455 Name Value Range Interpretation Code Description Data Tashia rce(s) Supporting Document(s) ID Date Data Source [id number] 05/11/2019 04:51:00 PM [facility] [address] [place] [address] [phone] NAME SEX PT STATUS ACCOUNT NUMBER CASSIE JIANG REG REF [id number] ORDERING PHYSICIAN LOCATION MEDICAL RECORD NO. Robbi ANTELMO-Keyanna Chang [facility] [id number] ATTENDING PHYSICIAN DATE OF DATE OF EXAM/TIME SethiKmani 1955 05/11/191649 TYPE / EXAM Xray Knee Comp 4 or more RT REASON FOR EXAM screw removal right distal femur-Ortho COMPARISON: March 24, 2019 FINDINGS: Continued interval healing of distal right femoral fracture is seen. Intramedullary otis and stabilization screws are seen. There is no evidence of hardware complication or failure. Significant callus is seen around the fracture site. Degenerative changes at the knee are moderate. Osteophytosis is seen arising from the tibial plateaus, both medially and laterally, as well as the femoral condyles. IMPRESSION: Interval healing of distal right femoral fracture with intramedullary otis. Reported By Alcides Waldrop MD on 05/11/191650 Signed By Alcides Vaughn MD on 05/11/191652 Date Time CC: Alcides Waldrop MD; Kimani Ann M.D. Techn: MORSA Trans Dt/Tm: Trans by: DT Prt Dt/Tm: [id number]: Total DLP = 0.00 mGy-cm Fluoroscopy Time (in secs): Name Value Range Interpretation Code Description Data Tashia rce(s) Supporting Document(s) ID Date Data Source [id number] 05/11/2019 03:52:00 PM [facility] Patient Name: CASSIE JIANG : 1955 Sex: F Pt Unit #: [id number] Location:AMB.ORTHO Provider: Visit Date/Time: 05/11/19 Primary Insurance: [facility] Secondary Insurance: Self Pay Intake Vital Signs 05/11/19 16:06 BP 124/72 Respiration 16 Pulse 62 Pulse Oximetry (%) 98 Intake Visit Reasons: Post op visit (orthopedics) Is patient in pain?: Yes Pain scale (1-10): 10 Allergies simvastatin [From Zocor] Allergy (Severe, Verified 04/03/19 10:39) Anaphylaxis gatifloxacin [From Tequin] Allergy (Mild, Verified 04/03/19 10:39) Erythema rofecoxib [From Vioxx] Allergy (Mild, Verified 04/03/19 10:39) Urticaria theophylline [From Gonzalo-Dur] Allergy (Mild, Verified 04/03/19 10:42) MASSIVE HEAD PAIN HIV Testing Offer - ages 13-64 Requirement for HIV testing offer been met?: Consents to testing today/Pretest education received and acknowledged [facility] Medical History Arthritis (Acute) Asthma (Acute) Ataxia (Acute) Chronic constipation (Acute) Chronic pain (Acute) DDD (degenerative disc disease) (Acute) Depre ssion (Acute) Diastolic CHF (Acute) Fibromyalgia (Acute) GERD (gastroesophageal reflux disease) (Acute) Hyperalgesia (Acute) Hyperlipidemia (Acute) Hypertension (Acute) Hypothyroid (Acute) Osteoporosis (Acute) Sleep apnea (Acute) Type 2 diabetes mellitus (Acute) UTI (urinary tract infection) (Acute) Vitamin D deficiency (Acute) Surgical History (Updated 05/11/19 @ 15:53 by Erica Escamilla) History of orthopedic surgery (Acute) History of surgery (Acute 02/20/19) Social History Does the Patient have a Healthcare Proxy: Yes Does Patient have a DNR?: No Does Patient have a Living Will?: No Does the Patient have a MOLST?: No Advance Directives on File or in chart?: No (will complete) Hx Recent Travel (where): No HPI Additional HPI HPI Details: Patient is a 63 year old female, here for a 5 week post op of the right distal femur screw removal, surgery was performed on 04/03/19. Patient has no showed her orthopedic follow-up appointments since her date of surgery.Today, she is experiencing severe, intense pain in the knee since the screw was removed. She has not been able to weight bear on the leg. She presents in a wheelchair today. She is not sleeping well. She has noticed an increase in pain of the right knee over the last week and a half. Patient has continued with home physical therapy however has not progressed. Orthopedic General Post-Op History of Present lllness Current symptoms: Denies fever(s) or limited range of motion Review of Systems Const Denies anorexia, Denies excessive sweating, Denies fatigue, Denies fever(s), Denies headache(s), Denies weight gain and Denies weight loss Eyes Denies blurry vision, Denies change in vision, Denies dry eyes, Denies irritation, Denies itchy eyesand Denies loss of vision ENT Denies abnormal hearing, Denies dysphagia, Denies dizziness, Denies headache(s), Denies lip swelling, Denies nasal congestion, Denies nasal discharge, Denies dise quilibrium, Denies sinus pain,Denies sore throat and Denies throat swelling Card Denies chest pain, Denies pedal edema, Denies lightheadedness, Denies palpitations and Denies dyspnea Resp Denies cough, Denies excessive phlegm production, Denies pain on inspiration, Denies dyspnea and Denies wheezing GI Denies abdominal pain, Denies change in bowel habits, Denies dysphagia, Denies early satiety, Deniesheartburn, Denies diarrhea, Denies nausea and Denies vomiting Denies abnormal vaginal bleeding, Denies difficulty voiding, Denies pelvic pain, Denies urinary incontinence and Denies urinary urgency Musc Denies back pain, Reports arthralgias (right knee), Denies limited range of motion, Denies muscle cramps and Denies muscle weakness Skin/Breast Denies breast pain, Denies change in pigmentation, Denies lesions, Denies nail changes, Denies rash and Denies unusual bruising Neuro Denies abnormal hearing, Denies dizziness, Denies headache(s), Denies loss of vision, Denies memory loss, Denies paresthesias and Denies disequilibrium Psych Denies abnormal sleep pattern, Denies anxiety, Denies change in appetite, Denies depression, Denies irritability and Denies memory loss Endo Denies cold intolerance, Denies excessive sweating, Denies fatigue, Denies polyphagia, Denies polydipsia, Denies polyuria and Denies palpitations Darrel/Lymph Denies easy bleeding, Denies easy bruising and Denies lymphadenopathy Aller/Immun Denies urticaria, Denies itchy eyes, Denies lip swelling, Denies seasonal rhinorrhea, Denies throat swelling and Denies wheezing Exam Extrem Other: Patient removed her own sutures over the lateral incision after her previous screw removal. Unfortunately she has left retained nylon suture. There is no surrounding erythema or signs of infection at the suture site today. She is quite tender globally throughout the knee. She is tender over both medial lateral joint line. She is tender superiorly over the quadriceps as well asinferiorly over the patellar tendon. She is nontender in the popliteal space or calf. She has verypoor knee range of motion today however actively is able to extend the knee against gravity demonstrating intact quadriceps function. Knee extension actively is limited to approximately -5 degrees. She can tolerate up to approximately 90 degrees of knee flexion. Her knee is stable upon valgus and varus stress. She has intact sensation throughout the right lower extremity with intact peripheral pulses. Assessment Plan Assessment Plan (1) Encounter for orthopedic follow-up care: Code(s): Z47.89 - Encounter for other orthopedic aftercare Plan - Robbi Chang PA-C: Retained suture of the right knee was removed today. Repeat x-rays were ordered and show continued healing of distal femoral shaft fracture with no interval change in otis or screw fixation. She continues to have underlying severe right knee arthritis. There is no appreciable large joint effusion today and there is no appreciable quadriceps tendon rupture on x- ray. Patient has declinedsince her last office visit. I see no concerning signs for infection today. No concerning signs for DVT. Patient has also been noncompliant has not followed up since surgery until today. At thistime we will continue with Tylenol for pain and will add in a prescription of tramadol for better pain control. She will begin using a heating pack and I have convinced the patient to begin outpatient formal physical therapy in [place]. Recommend additional follow-up in approximately 6 weeks with repeat x-rays of the right knee and femur with Dr. Gao. Orders Other Medications: New: tramadol 50 mg PO Q6H PRN 40 tabs 0RF pain MDD 4 Other Orders: Orders: Xray Knee Comp 4 or more RT Today S72.401A E lectronically Signed By: <Electronically signed by Robbi Briceño> Date/Time Signed: 05/11/19 1710 Name Value Range Interpretation Code Description Data Tashia rce(s) Supporting Document(s) ID Date Data Source [id number] 04/03/2019 05:02:00 PM [facility] [address] [place] [id number] [phone] NAME SEX PT STATUS ACCOUNT NUMBER CASSIE JIANG [facility] [id number] ORDERING PHYSICIAN LOCATION MEDICAL RECORD NO. Cesario Gao MD [place] [id number] ATTENDING PHYSICIAN DATE OF DATE OF EXAM/TIME Kimani Ann 1955 04/03/191651 TYPE / EXAM XRAY FEMUR LT 2 VIEW REASON FOR EXAM SCREW REMOVAL COMPARISON: March 29, 2019 FINDINGS: There is been interval removal of one of the screws fixating an intramedullary otis at the level of the knee. Other proximal hardware are unchanged. IMPRESSION: Interval removal of orthopedic screw. Reported By Alcides Waldrop MD on 04/03/191701 Signed By Alcides Waldrop MD on 04/03/191703 Date Time CC: Alcides Waldrop MD; Kimani Ann M.D. Techn: FROSA Trans Dt/Tm: Trans by: DT Prt Dt/Tm: [id number]: Total DLP = 0.00 mGy-cm Fluoroscopy Time (in secs): Name Value Range Interpretation Code Description Data Tashia rce(s) Supporting Document(s) ID Date Data Source [id number] 04/03/2019 04:47:00 PM [facility] Name: CASSIE JIANG : 1955 Age: 63 MR#: [id number] Admit Date: 03/29/19 Provider: Cesario Gao MD Room #: Consulting Provider: Dictation Date: 04/03/19 Operative Note Orthopedic Operative Report Date of service Date of service:: 04/03/19 Operative Note Orthopaedic Surgeons:: Cesario Gao MD Anesthesiologist(s): Michael Padilla MD Anesthesia Type: General Pre- Operative Diagnosis: Backup of screw from distal femur following retrograde rodding of right distal femoral fracture Post-Operative Diagnosis: same as pre- op Procedure: Removal of screw from distal femur. EBL (ml): [address]?: Yes Packing in place?: No Packing: No Packing Drain: No Drain Tourniquet:: No Tourniquet used Specimens: No Specimens Complications: No Post-Operative Condition: Good Narrative: Patient patient was seen in my office last week was noted to have healing right distal femur fracture following retrograde rodding of the fracture. Multiple screws were placed in the distal femoral fragment. 1 of the screws more proximally located in the distal femur had partially backed out and was painful for the patient. Decision was made to remove the the screw that had backed out the plate distally and laterally from the femur patient was administered general anesthetic. Sandbag was placed underneath the patient's right hip. A non-circumferential prep and draping was doneat the site of the proposed screw removal. After prepping and draping, a surgical time out was taken. 1 of the stab incisions previously utilized for screw insertion laterally was reopened and using C arm, the screw was located and removed without difficulty. The small incision was closed using a single 3- 0 nylon horizontal mattress suture. Patient was taken to recovery room in a sterile dressing. Dictated by: <Electronically signed by Cesario Gao MD> Cesario Gao MD 04/03/19 1651 Cesario Gao MD SIGNATURE DA Report Cosigners: D: KAP 04/03/191646 T: KAP 04/03/191646 CC: Name Value Range Interpretation Code Description Data Tashia rce(s) Supporting Document(s) ID Date Data Source [id number] 03/29/2019 02:41:00 PM [facility] Patient Name: CASSIE JIANG : 1955 Sex: F Pt Unit #: [id number] Location:[facility].ORTHO Provider: Visit Date/Time: 03/29/19 Primary Insurance: [facility] Secondary Insurance: Self Pay Intake Vital Signs 03/29/19 14:42 BP 112/80 Respiration 16 Pulse 102 H Pulse Oximetry (%) 94 L Intake Visit Reasons: post-op Right femur Is patient in pain?: Yes Pain scale (1-10): 10 Allergies simvastatin [From Zocor] Allergy (Severe, Verified 02/25/19 09:53) Anaphylaxis gatifloxacin [From Tequin] Allergy (Mild, Verified 02/25/19 09:53) Erythema rofecoxib [From Vioxx] Allergy (Mild, Verified 02/25/19 09:53) Urticaria rosuvastatin [From Crestor] Adverse Reaction (Intermediate, Verified 02/25/19 09:53) Myalgia HIV Testing Offer - ages 13-64 Requirement for HIV testing offer been met?: Consents to testing today/Pretest education received and acknowledged [facility] Medical History (Updated 03/15/19 @ 07:57 by Robbi Chang PA-C) Arthritis (Acute) Asthma (Acute) Ataxia (Acute) Chronic constipation (Acute) Chronic pain (Acute) DDD (degenerative disc disease) (Acute) Depression (Acute) Diastolic CHF (Acute) Fibromyalgia (Acute) GERD (gastroesophageal reflux disease) (Acute) Hyperalgesia (Acute) Hyperlipidemia (Acute) Hypertension (Acute) Hypothyroid (Acute) Osteoporosis (Acute) Sleep apnea (Acute) Type 2 diabetes mellitus (Acute) UTI (urinary tract infection) (Acute) Vitamin D deficiency (Acute) Surgical History (Updated 03/14/19 @ 14:50 by Kaleigh Junior) History of orthopedic surgery (Acute) History of surgery (Acute 02/20/19) Social History Does the Patient have a Healthcare Proxy: Yes Does Patient have a DNR?: No Does Patient have a Living Will?: No Does the Patient have a MOLST?: No Advance Directives on File or in chart?: No (will complete) Hx Recent Travel (where): No HPI Additional HPI HPI Details: Patient is a 63 year old female, here for a 5 week post-op of her Right femur. She had a intramedullary nailing of right distal femur fracture through a retrograde approach on 02/20/19. Shehas had increased pain since Tuesday this week with no known trauma to the area. Today, she is experiencing constant pain in the inferior and lateral knee. The pain radiates into the lateral thigh. She is full weight bearing with a walker at home. She is doing home exercises andhas home PT. Her ROM has worsened due to pain. There is swelling in the lateral knee as well. She denies any numbness or tingling. She is taking Tylenol as needed for discomfort with relief and wakes in the night however not completely due to pain in her knee. Exam Const General: cooperative, healthy appearing and uncomfortable Nutritional Appearance: obese Orientation: alert, awake and oriented x3 HENOK Head: normal to inspection, normocephalic and atraumatic Eyes General: appearance normal, both eyes and all related structures Pupils: PERRL Neck Neck: normal visual inspection, full ROM and nontender Chest Chest: normal inspection of the chest Resp Effort Inspection: normal respiratory effort Auscultation: clear to auscultation bilaterally Cardio Jugular venous pressure: no JVD Palpation: normal PMI Rate: regular rate Rhythm: regular rhythm Heart Sounds: S1 normal and S2 normal Skin Lesions: no lesions Rashes: no rashes Trauma: no lacerations or abrasions Neuro General: alert, awake and oriented x3 Cognition: normal cognition Speech: speech normal Motor: muscle tone normal throughout Extrem Other: Examination of right lower extremity reveals a well-healed incision over the anterior aspect of the knee. Patient has good range of motion of the right knee joint. She developed pain this week in the right knee. Examination reveals a prominent screw has backed out laterally in the distal femur. I can palpate the screw. Examination of the right lower extremity remains otherwise normal. There is mild soft tissue swelling about the right distal femur but no right knee effusion. Psych Appearance: grossly normal Thought Process: normal Thought Content: normal Insight: insight good Assessment Plan Assessment Plan (1) Fracture of distal end of right femur: Status: Acute Comment: . Code(s): S72.401A - Unspecified fracture of lower end of right femur, initial encounter for closed fracture SNOMED Code(s): 868414915 Category: Medical Plan - Cesario Gao MD: Patient is now 37 days following retrograde rodding for a right distal femur fracture. X-rays obtained today show early fracture healing. There is no change in position alignment of the distal femur fracture from the postoperative x-rays. The only difference is 1 of the lateral screws in thedistal fragment has backed out that is now prominent and bothering the patient. We will make arrangements to remove the backed out screw early next week to be done by a combination of MAC anesthesia and local anesthetic. The procedure will be done on outpatient basis. Patient in the interim will be allowed to weight-bear to tolerance on the affected side. Electronically Signed By: <Electronically signed by Cesario Gao MD> Date/Time Signed: 03/29/19 1531 Name Value Range Interpretation Code Description Data Tashia rce(s) Supporting Document(s) ID Date Data Source [id number] 03/29/2019 02:40:00 PM [facility] [address] [place] [address] [phone] NAME SEX PT STATUS ACCOUNT NUMBER CASSIE JIANG REG REF [id number] ORDERING PHYSICIAN LOCATION MEDICAL RECORD NO. Robbi Chang [facility] [id number] ATTENDING PHYSICIAN DATE OF DATE OF EXAM/TIME Kimani Ann 1955 03/29/19 / 1419 TYPE / EXAM XRAY FEMUR RT 2 VIEW REASON FOR EXAM post op fracture COMPARISON: March 14, 2019 FINDINGS: Again demonstrated is intramedullary otis in the left femur. The proximal itself remains stable in position. However, the most proximal of the condylar screws appears to have pushed back. Otherwise, there is no evidence of hardware complication or failure. Healing around the fracture site through the metadiaphysis of the right femur is seen. Callus formation is appreciated. IMPRESSION: Hardware fixation of distal femoral fracture. Interval pushback of one of the screws. Appropriate clinical follow-up advised. Reported By Alcides Waldrop MD on 03/29/19 1440 Signed By Alcides Vaughn MD on 03/29/19 1443 Date Time CC: Alcides Waldrop MD; Kimani Ann M.D. Techn: MARJORIE Trans Dt/Tm: Trans by: DT Prt Dt/Tm: [id number]: Total DLP = 0.00 mGy-cm Fluoroscopy Time (in secs): Name Value Range Interpretation Code Description Data Tashia rce(s) Supporting Document(s) ID Date Data Source Urinalysis, no micro 03/23/2019 12:00:00 AM EST eCW1 ([facility]) Name Value Range Interpretation Code Description Data Tashia rce(s) Supporting Document(s) 1.010 1.002 - 1.035 Spec gravity eCW1 ([facility]) 6 5.0 - 9.0 pH eCW1 ([facility]) POSITIVE Negative - Nitrate eCW1 ([facility]) NORMAL Negative - mg/dl Glucose eCW1 ([facility]) ++ Negative - Leukocyte eCW1 ([facility]) +++ Negative - mg/dl Protein eCW1 ([facility]) NEGATIVE Normal - mg/dl Urobili eCW1 ([facility]) NEGATIVE Negative - Bilirubin eCW1 ([facility]) NEGATIVE Negative - Blood eCW1 ([facility]) NEGATIVE Negative - mg/dl Ketones eCW1 ([facility]) YES Internal QC Acceptable (Y/N) e CW1 ([facility]) ID Date Data Source [id number] 03/14/2019 03:44:00 PM [facility] [address] [place] [address] [phone] NAME SEX PT STATUS ACCOUNT NUMBER CASSIE JIANG F REG REF [id number] ORDERING PHYSICIAN LOCATION MEDICAL RECORD NO. Robbi Chang [facility] [id number] ATTENDING PHYSICIAN DATE OF DATE OF EXAM/TIME Kimani Ann 1955 03/14/19 / 1446 TYPE / EXAM XRAY FEMUR RT 2 VIEW REASON FOR EXAM post-op Right distal femur COMPARISON: February 19, 2019 FINDINGS: Images demonstrate interval fixation of distal right femoral fracture. There is no evidence of hardware complication or failure. Images demonstrate alignment at the site. IMPRESSION: Interval fixation of distal right femoral fracture. No evidence of hardware complication or failure. Improved alignment of fractured fragments. Reported By Alcides Waldrop MD on 03/14/19 1544 Signed By Alcides Waldrop MD on 03/14/19 1546 Date Time CC: Alcides Waldrop MD; Kimani Ann M.D. Techn: [facility] Trans Dt/Tm: Trans by: DT Prt Dt/Tm: [id number]: Total DLP = 0.00 mGy-cm Fluoroscopy Time (in secs): Name Value Range Interpretation Code Description Data Tashia rce(s) Supporting Document(s) ID Date Data Source [id number] 03/14/2019 02:48:00 PM [facility] Patient Name: CASSIE JIANG : 1955 Sex: F Pt Unit #: [id number] Location:AMB.ORTHO Provider: Visit Date/Time: 03/14/19 Primary Insurance: [facility] Secondary Insurance: Self Pay Intake Vital Signs 03/14/19 14:50 Current Height 5 ft 6 in Current Weight 220 lb BMI 35.5 BP 106/62 Respiration 18 Pulse 99 Pulse Oximetry (%) 96 Oxygen Delivery Method room air Intake Visit Reasons: post-op Right femur Is patient in pain?: Yes Pain scale (1-10): 7 Allergies simvastatin [From Zocor] Allergy (Severe, Verified 02/25/19 09:53) Anaphylaxis gatifloxacin [From Tequin] Allergy (Mild, Verified 02/25/19 09:53) Erythema rofecoxib [From Vioxx] Allergy (Mild, Verified 02/25/19 09:53) Urticaria rosuvastatin [From Crestor] Adverse Reaction (Intermediate, Verified 02/25/19 09:53) Myalgia HIV Testing Offer - ages 13-64 Requirement for HIV testing offer been met?: Consents to testing today/Pretest education received and acknowledged [facility] Medical History (Updated 03/15/19 @ 07:57 by Robbi Chang PA-C) Arthritis (Acute) Asthma (Acute) Ataxia (Acute) Chronic constipation (Acute) Chronic pain (Acute) DDD (degenerative disc disease) (Acute) Depression (Acute) Diastolic CHF (Acute) Fibromyalgia (Acute) GERD (gastroesophageal reflux disease) (Acute) Hyperalgesia (Acute) Hyperlipidemia (Acute) Hypertension (Acute) Hypothyroid (Acute) Osteoporosis (Acute) Sleep apnea (Acute) Type 2 diabetes mellitus (Acute) UTI (urinary tract infection) (Acute) Vitamin D deficiency (Acute) Surgical History (Updated 03/14/19 @ 14:50 by Kaleigh Junior) History of orthopedic surgery (Acute) History of surgery (Acute 02/20/19) Social History Does the Patient have a Healthcare Proxy: Yes Does Patient have a DNR?: No Does Patient have a Living Will?: No Does the Patient have a MOLST?: No Advance Directives on File or in chart?: No (will complete) Hx Recent Travel (where): No HPI Additional HPI HPI Details: Patient is a 63 year old female, here for a 3 week post-op of her Right femur. She had a intramedullary nailing of right distal femur fracture through a retrograde approach on 02/20/19. Today, she is experiencing constant pain in the entire knee. She has muscle spasms superior to the patella. She is full weight bearing with a walker at home, she presents today in a wheelchair. She is doing home exercises and is due to have home PT starting the . She has seen improvements in her ROM. She denies any numbness or tingling. She is taking Tylenol as needed for discomfort with relief and wakes in the night however not completely due to pain in her knee. Exam Extrem Other: Central parapatellar incision is healing with good cosmesis and belia removed. Lateral andmedial screw placement incisions show retained nylon sutures under the skin. No source of erythema or drainage. Expected postoperative swelling of the right knee with mild joint effusion and no superficial fluctuance. Quadriceps mechanism remains intact the patient is able to demonstrate kneeextension. She lacks approximately final 5 degrees of terminal knee extension however has had significant improvement in knee flexion to approximately 100 degrees. She is able to actively ankledorsiflex and plantarflex. She is able to perform a short arc of active hip flexion. Patient's calves are soft and nontender bilaterally. Patient has intact sensation throughout the right lower extremity with intact peripheral pulses. Assessment Plan Assessment Plan (1) Fracture of distal end of right femur: Status: Acute Comment: . Code(s): S72.401A - Unspecified fracture of lower end of right femur, initial encounter for closed fracture SNOMED Code(s): 169350507 Category: Medical Plan - Robbi Chang PA-C: X-rays today show excellent anatomic alignment in the sagittal plane. No interval change in hardware position. Despite delay in home physical therapy the patient has had continuous improvement in her right lowerextremity strength and range of motion. Patient is ambulating at home placing full weight on the right lower extremity with use of a walker. Patient's pain has surprisingly been controlled with [id number] Tylenol only. She remains on Lovenox for DVT prophylaxis. Patient will begin homephysical therapy next week and may continue to weight- bear to tolerance with use of walker. Recommend additional follow-up in 3 weeks with repeat x-rays of the right femur. Of note the knee was cleansed today and the retained nylon sutures were removed without complication. Orders Other Orders: Orders: XRAY FEMUR RT 2 VIEW 2 Weeks S72.91XA Electronically Signed By: <Electronically signed by Robbi Briceño> Date/Time Signed: 03/15/19 0759 Name Value Range Interpretation Code Description Data Tashia rce(s) Supporting Document(s) ID Date Data Source [id number] 03/06/2019 07:52:00 AM [facility] Name: CASSIE JIANG : 1955 Age: 63 MR#: [id number] Admit Date: 02/19/19 Provider: Mikey Arroyo Room #: 293 Consulting Provider: Cesario Gonzalez MD Dictation Date: Discharge Summary Discharge Summary Problem List (1) Fracture of distal end of right femur: Status: Acute Code(s): S72.401A - Unspecified fracture of lower end of right femur, initial encounter for closed fracture Comment: Continue with OT/ PT. continue with pain management. Continue to monitor surgical sites for signs symptoms of infection. (2) GERD (gastroesophageal reflux disease): Status: Acute Code(s): K21.9 - Gastro- esophageal reflux disease without esophagitis Comment: Continue with home medication pantoprazole (3) Chronic constipation: Status: Acute Code(s): K59.09 - Other constipation Comment: Continue to monitor, bowel regimen as ordered (4) Hypothyroid: Status: Acute Code(s): E03.9 - Hypothyroidism, unspecified Comment: Continue with levo thyroxine (5) Type 2 diabetes mellitus: Status: Acute Code(s): E11.9 - Type 2 diabetes mellitus without complications Comment: Accu- Cheks AC at bedtime with sliding scale coverage as well as Januvia. Add Metformin 750 mg BID was on 850 mg BID at home. Resume glimepiride. Consistant carb diet. (6) Hyperlipidemia: Status: Acute Code(s): E78.5 - Hyperlipidemia, unspecified Comment: Continue home medication pravastatin (7) Fibromyalgia: Status: Acute Code(s): M79.7 - Fibromyalgia Comment: Gabapentin, Cymbalta andClonazepam (8) D epression: Status: Acute Code(s): F32.9 - Major depressive disorder, single episode, unspecified Comment: Cymbalta, Lexapro, Clonazepam. Resume home nortriptyline (9) Chronic pain: Status: Acute Code(s): G89.29 - Other chronic pain Comment: Baclofen and Flexeril for back spasms, Gabapentin for neuropathy, oxycodone 1 to 2 tablets every 4 hours for acute, Voltaren topical and home dose of prednisone 10 mg daily (10) Insomnia: Status: Acute Code(s): G47.00 - Insomnia, unspecified Comment: Home dose Rozerem (11) Bilateral lower extremity edema: Status: Acute Code(s): R60.0 - Localized edema Comment: Patient was on low dose indapamide at home which is available. Begin Lasix 20 mg daily and she can resume home diuretic regimen at discharge. Admit Info/Diagnoses/Course Date of service:: 03/06/19 Admission Information: Patient, CASSIE JIANG, a 63 year old F, admitted on 02/19/19 17:52 by Ellie Jefferson MD for S/P FEMUR FRACTURE Family Kimani Snow M.D. Primary (Admit) Diagnosis: right distal femur fracture Primary DC Diagnosis: right distal femur fracture Discharge Date: 03/06/19 Most Recent Lab Results: 03/06/19 06:55 03/05/19 06:00 Laboratory Results Last 24 hours 03/05/19 07:32: POC Glucose 41 L 03/05/19 12:02: POC Glucose 154 H 03/05/19 17:08: POC Glucose 111 H 03/05/19 21:11: POC Glucose 203 H 03/06/19 06:55: WBC 6.4, RBC 2.90 L, Hgb 8.9 L, Hct 29.0 L, MCV 100.0 H, MCH 30.7, MCHC 30.7 L, RDW 18 H, Plt Count 462, MPV 9.5, Immature Gran % (Auto) 0.2, Neut % (Auto) 31.7 L, Lymph % (Auto) 54.5 H, [place] % (Auto) 7.2, Eos % (Auto) 5.8, Baso % (Auto) 0.6, Lymph # (Auto) 3.5, Abs Immat Gran (auto)0.0, Add Manual Diff No, Absolute Neutrophils 2.0, Monocytes # 0.5, Absolute Eosinophils 0.4, Absolute Basophils 0.0 Microbiology 02/19/19 16:47 Urine,cath Urine Culture - Final [facility] Hospital Course: Patient is a 63-year-old female with a past medical history to include type 2 diabetes mellitus, hypothyroidism, hyperlipidemia and fibromyalgia, who presented to [facility] ED via EMS on 02/19/2019, after a fall at home. Patient stated while walking she slipped and fell on some ice which resulted in moderate to severe pain of right lower extremity. Chest x-ray revealed no acute disease. X-ray of right femur revealed a possible fracture to the distal right femur. X-ray of right tibia-fibula revealed superior calcaneal spurring, no fractures seen. X-ray of right knee revealed commuted fracture of the distal femoral metaphysis cysts and varus angulation. Patient was seen by Dr. Gao who placed patient in posterior and anterior splints immobilizing the right femur, knee and ankle. Dr. Gao saw no need for emergency procedure, recommended patient be admitted and cleared for surgery. Patient noted to have an elevated WBC at 11.0, glucose 108 and alkaline phosphatase 141, otherwise labs unremarkable. Patient was admitted to [facility] for further monitoring and treatment. TSH found to be elevated at 15.80, patient received an additional dose of Synthroid 25 MCG daily and increased total daily dose of Synthroid to 100 MCG. Free T4 1.29, Free T3 2.5. CTA revealed suboptimal bolus timing severely limits evaluation, no large central pulmonary emboli noted, lobar and segmental pulmonary emboli cannot be evaluated. Acute left anterior eighth and ninth rib fractures, healing left posterior 10th and 11th rib fractures. Patient underwent an intramedullary nailing of right distal femur fracture on 02/20/2019. Patient seen by Occupational Therapy who recommended restorative OT services to increase level of function with ADLs, transfers and bed mobility. Physical therapy evaluation recommended skilled PT services to promote improved functional independence. On 02/23/2019, patient's hemoglobin was 7.0, patient underwent transfusionof 1 unit of packed red blood cells. Patient showed marked improvement in physical therapy with increased movement and less pain to right leg. Patient to be discharged home with prescriptions forenoxaparin 30 mg SQ twice daily x14 days, acetaminophen thousand milligrams every 8 hours as needed for pain, oxycodone 5 mg tablets, 1 to 2 tablets every 4 hours as needed for pain. Patient to follow-up with orthopedics and primary care physician. Patient will need outpatient sleep study. Exam Condition Stable Vital Signs - Most Recent: Last Vital Signs Temp 97.6 F 03/05/19 21:00 Pulse 74 03/06/19 07:12 Resp 18 03/06/19 07:12 BP 103/58 03/06/19 05:56 Pulse Ox 97 03/06/19 07:12 Ht Wt BMI Current Height 5 ft 6 in Current Weight 220 lb Body Mass Index (BMI) 35.5 Body Mass Index (BMI) Obese Classification General: Alert, Oriented x3, Cooperative and No acute distress HEENT: Atraumatic, PERRLA, EOMI and Mucous membr. moist/pink Neck: Supple and No LAD Lungs: Clear to auscultation and Normal air movement Cardiovascular: Regular rate, Normal S1 and Normal S2 Abdomen: Normal bowel sounds and Soft Extremities: No clubbing and Normal pulses Skin: Skin warm and dry, Mucus membranes moist and Color normal for race Neurological: Normal speech, Strength at 5/5 X4 ext, Normal tone and Sensation intact Psych/Mental Status: Mental status NL and Mood NL Code Status: Full Code Discharge Plan Care plan: Plan of care discussed with patient and or family, Patient encouraged to ask questions about plan, Patient agrees with plan of care and Discharge plan and instructions discussed with patient and or family Medications Home Medications albuterol sulfate [Proventil HFA] 2 inh INHALATION QID PRN 02/19/19 [History] alogliptin 25 mg PO DAILY 02/19/19 [History] celecoxib 200 mg PO DAILY 02/19/19 [History] duloxetine 60 mg PO BID 02/19/19 [History] ergocalciferol (vitamin D2) 1,250 mcg PO UD 02/19/19 [History] escitalopram oxalate 10 mg PO DAILY 02/19/19 [History] esomeprazole magnesium [Nexium 24HR] 40 mg PO DAILY 02/19/19 [History] folic acid 1 mg PO DAILY 02/19/19 [History] gabapentin 800 mg PO TID 02/19/19 [History] glimepiride 4 mg PO BID 02/19/19 [History] indapamide 2.5 mg PO DAILY 02/19/19 [History] levothyroxine 75 mcg PO DAILY 02/19/19 [History] magnesium oxide 400 mg PO BID 02/19/19 [History] metformin 850 mg PO BID 02/19/19 [History] potassium chloride 20 meq PO DAILY 02/19/19 [History] ramelteon [Rozerem] 8 mg PO HS 02/19/19 [History] rosuvastatin 40 mg PO DAILY 02/19/19 [History] prednisone 10 mg PO DAILY 02/20/19 [History] Januvia 100 mg PO DAILY 02/21/19 [History] aspirin 81 mg PO DAILY 02/21/19 [History] baclofen 10 mg PO Q6H 02/21/19 [History] clonazepam [Klonopin] 0.5 mg PO BID 02/21/19 [History] cromolyn 2 ml INHALATION TID 02/21/19 [History] diclofenac sodium 1 % TOPICAL PRN PRN 02/21/19 [History] docusate sodium 100 mg PO BID 02/21/19 [History] fluticasone propion-salmeterol [AirDuo RespiClick] 1 puff INHALATION BID 02/21/19 [History] indapamide 2.5 mg PO DAILY 02/21/19 [History] nortriptyline 25 mg PO DAILY 02/21/19 [History] celecoxib 200 mg PO DAILY PRN 02/22/19 [History] cyclobenzaprine 15 mg PO Q8H 02/22/19 [History] oxycodone- acetaminophen 1 tab PO Q4H 02/22/19 [History] polyethylene glycol 3350 17 gm PO DAILY 02/22/19 [History] sennosides-docusate sodium [Senna Plus] 1 tab-cap PO DAILY PRN 02/22/19 [History] acetaminophen 500 mg PO Q8HPRN PRN #60 tab 9 [Rx] enoxaparin 30 mg SQ Q12HR #22.4 ml 03/06/19 [Rx] oxycodone 5 mg PO Q4HR PRN #30 cap 03/06/19 [Rx] Quality Indicators Conditions Present During Hospitalization: None Apply Time Spent on Discharge: > 30 Minutes (40 minutes) Subjective-ROS Review of Systems General: Denies Fever, Chills and Fatigue HEENT: Denies Headaches and Visual Changes Endocrine: Denies Loss of appetite and Increased appetite Cardiovascular: Denies Chest Pain, Palpitations and Light Headedness Pulmonary: Denies Dyspnea and Cough Gastrointestinal: Denies nausea, vomiting, abdominal pain, diarrhea and constipation Genitourinary: Denies Dysuria and Frequency Musculoskeletal: Reports Leg Pain (right); Denies Neck Pain, Shoulder Pain, Arm Pain and Back Pain Neurological: Denies Numbness, Incoordination, Change in speech and Confusion Psych: Denies anxiety and depression Allergic/Immunologic: Denies rash and fever Quality Measures Tobacco Use Smoking Status: Never smoker BMI Screening: Current Height: 5 ft 6 in Current Weight: 220 lb Body Mass Index (BMI): 35.5 BMI Screening and Follow-Up Plan: Ht/Wt/BMI Current Height 5 ft 6 in Current Weight 220 lb Weight Measurement Method Most recent on chart Body Mass Index (BMI) 35.5 Body Mass Index (BMI) Obese Classification Influenza Immunization Hx/Date of Influenza Vaccination (from nursing Hx): No Safety Two or more falls in last year? (Future fall risk): Yes Fall with injury in last year (Future fall risk): Yes Future fall risk?: Patient screens as a future fall risk Diabetes Care Measures HgAic/Microalbumin: HgA1c Hemoglobin A1c 6.7 % (4.0-6.0) H 02/19/19 19:25 Glucose/POC Glucose: POC Glucose last 48 hrs 03/04/19 03/04/19 03/04/19 11:54 17:23 20:25 POC Glucose 139 H 127 H 89 03/05/19 03/05/19 03/05/19 07:32 12:02 17:08 POC Glucose 41 L 154 H 111 H 03/05/19 21:11 POC Glucose 203 H Glucose last 48 hrs 03/05/19 06:00 Glucose 47 L Discharge Plan Admission/Discharge Dx Primary DC Diagnosis: right distal femur fracture Condition Condition at Discharge: Stable Discharge Detail Disposition: Home, Self-Care Med Rec New Prescriptions: New enoxaparin 30 mg/0.3 mL syringe 30 mg SQ Q12HR Qty: 22.4 RF: 0 acetaminophen 500 mg tablet 500 mg PO Q8HPRN PRN (Reason: pain) Qty: 60 RF: 0 oxycodone 5 mg capsule 5 mg PO Q4HR PRN (Reason: pain) Qty: 30 RF: 0 Continued celecoxib 200 mg capsule 200 mg PO DAILY RF: 0 indapamide 2.5 mg Tablet 2.5 mg PO DAILY RF: 0 metformin 850 mg tablet 850 mg PO BID RF: 0 glimepiride 2 mg tablet 4 mg PO BID RF: 0 levothyroxine 75 mcg tablet 75 mcg PO DAILY RF: 0 potassium chloride 20 mEq tablet,ER particles/crystals 20 meq PO DAILY RF: 0 gabapentin 800 mg tablet 800 mg PO TID RF: 0 folic acid 1 mg tablet 1 mg PO DAILY RF: 0 ergocalciferol (vitamin D2) 1,250 mcg (50,000 unit) Capsule 1,250 mcg PO UD RF: 0 albuterol sulfate [Proventil HFA] 90 mcg/actuation Hfa Aerosol Inhaler 2 inh INHALATION QID PRN (Reason: asthma ) RF: 0 esomeprazole magnesium [Nexium 24HR] 20 mg capsule,delayed release(DR/EC) 40 mg PO DAILY RF: 0 escitalopram oxalate 10 mg tablet 10 mg PO DAILY RF: 0 rosuvastatin 40 mg tablet 40 mg PO DAILY RF: 0 duloxetine 60 mg Capsule,Delayed Release(Dr/Ec) 60 mg PO BID RF: 0 ramelteon [Rozerem] 8 mg Tablet 8 mg PO HS RF: 0 magnesium oxide 400 mg magnesium Capsule 400 mg PO BID RF: 0 alogliptin 25 mg Tablet 25 mg PO DAILY RF: 0 prednisone 20 mg tablet 10 mg PO DAILY RF: 0 indapamide 2.5 mg Tablet 2.5 mg PO DAILY RF: 0 clonazepam [Klonopin] 0.5 mg Tablet 0.5 mg PO BID RF: 0 cromolyn 20 mg/2 mL Solution For Nebulization 2 ml INHALATION TID RF: 0 nortriptyline 25 mg Capsule 25 mg PO DAILY RF: 0 baclofen 10 mg Tablet 10 mg PO Q6H RF: 0 docusate sodium 100 mg Capsule 100 mg PO BID RF: 0 aspirin 81 mg Tablet,Chewable 81 mg PO DAILY RF: 0 Januvia 100 mg Tablet 100 mg PO DAILY RF: 0 diclofenac sodium 1 % gel 1 % TOPICAL PRN PRN (Reason: Pain) RF: 0 fluticasone propion-salmeterol [AirDuo RespiClick] 232-14 mcg/actuation Aerosol Powdr Breath Activated 1 puff INHALATION BID RF: 0 celecoxib 200 mg Capsule 200 mg PO DAILY PRN (Reason: Breakthrough Pain) RF: 0 cyclobenzaprine 5 mg Tablet 15 mg PO Q8H RF: 0 polyethylene glycol 3350 17 gram Powder In Packet 17 gm PO DAILY RF: 0 sennosides- docusate sodium [Senna Plus] 8.6-50 mg Tablet 1 tab-cap PO DAILY PRN (Reason: Constipation) RF: 0 oxycodone-acetaminophen 5-325 mg Tablet 1 tab PO Q4H RF: 0 Follow Up Visit/Referrals: [facility] [Outside] - 03/12/19 Discharge Problem: Fracture of right femur Follow Up Care/Instructions Diet/Activity/Wound Care..: Diet: As tolerated Activity: As tolerated, follow physical therapy suggestions Medications New: Enoxaparin 30 mg injection syringe, inject once in the morning and once at night for 14 days New: Acetaminophen 500 mg tablet, take 2 tablets by mouth every 8 hours as needed for pain New: Oxycodone 5 mg tablet, take 1 to 2 tablets by mouth every 4 hours as needed for pain In regards to diabetic medications, suggest obtaining glucose prior to taking medications, follow-up with primary care physician Resume other home medications as prescribed Follow-up With primary care physician within 7 to 10 days, pertaining to medication refill refills and sleep study as an outpatient Follow-up with physical therapy With orthopedics Return to the emergency room With returning or worsening of symptoms to include but not limited to severe right leg pain, increased swelling, increased bruising, inability to bear any weight on right leg, fever associated with previous symptoms stated As needed Quality Indicators Conditions Present During Course of Hospitalization: None Apply *Discharge Patient* Discharge Orders: Discharge Order (Routine); Ordered 03/06/19 Ordered By: Mikey Arroyo Provider hand off (NOW); Ordered 02/19/19 Ordered By: Christian Jenkins Dictated by: <Electronically signed by Mikey RODRIGES> Mikey RODRIGES 03/06/19 1230 Mikey Arroyo SIGNATURE DA Report Cosigners: <<Signature on File>> Ellie Jefferson MD 03/06/19 132 <Electronically signed by Ellie Jefferson MD> Ellie Jefferson MD 03/06/19 1323 D: HAMMAD 03/06/19 075 T: H[facility]MAD 03/06/19 075 CC: ADDENDUM: During discharge, patient was still in the room and had to get up to go to the bathroom, upon getting up she slipped on her right leg and fell to the ground landing on her buttocks. Patient denies hitting her head, loss of consciousness, dizziness, headache, l ightheadedness, arm pain, neck pain, chest pain, dyspnea, nausea and vomiting. Patient denies any pain in her buttocks. Patient states she was more embarrassed than anything else. Inspection of buttocks reveals no ecchymosis, lacerations, erythema or signs of recent trauma. Upon examination patient is PERRLA, EOMI, normal rate and rhythm, normal breath sounds with no wheezing, rhonchi or Rales noted. Right lower extremity with same range of motion as prior to fall. Patient seen ambulating with walker after fall with no issues noted. Addended by: <Electronically signed by Mikey RODRIGES> 03/06/191609 Addendum Cosigners: <Electronically signed by Ellie Jefferson MD> 03/07/19 0949 D: [facility] 03/06/191609 T: [facility] 03/06/191609 CC: Name Value Range Interpretation Code Description Data Tashia rce(s) Supporting Document(s) ID Date Data Source [id number] 03/06/2019 07:15:00 AM EST [facility] Name Value Range Interpretation Code Description Data [facility] rce(s) Supporting Document(s) Leukocytes [#/volume] in Blood by Automated count 6.4 10*3/uL 4.45-10 .71 N [facility] Erythrocytes [#/volume] in Blood by Automated count 2.90 10*6/uL 4.20-5.40 Below low normal [facility] Hemoglobin [Moles/volume] in Blood 8.9 g/dL 10.7-15.4 Below low no rmal [facility] Hematocrit [Volume Fraction] of Blood by Automated count 29.0 % 37-47 Below low normal [facility] Erythrocyte mean corpuscular volume [Ent itic volume] in Cord blood by Automated count 100.0 fL 80-96 Above high normal [facility] Erythrocyte mean corpuscular hemoglobin [Entitic mass] by Automated count 30.7 pg 27-31 N [facility] Erythrocyte mean corpuscular hemoglobin concentration [Mass/volume] in Cord blood 30.7 g/dL 33-[address] [facility] Erythrocyte distribution width [Entitic volume] by Automated cou nt 18 % 11-15 Above high normal [facility] Platelets [#/volume] in Blood by Automated count 462 10*3/uL 130-472 N [facility] Platelet mean volume [Entitic volume] in Blood 9.5 fL 9.1-13.1 N [facility] Neutrophils/100 leukocytes in Blood by Automated count 31.7 % 41-77 Below low normal [facility] Neutrophils [#/volume] in Blood by Automated count 2.0 U 1.7-7.6 N [facility] Lymphocytes/100 leukocytes in Blood by Automated count 54.5 % 14-46 Above high normal [facility] Lymphocytes [#/volume] in Blood by Automated count 3.5 U 0.6-4.6 N [facility] Monocytes/100 leukocytes in Blood by Automated count 7.2 % 4-12 N [facility] Monocytes [#/volume] in Blood by Automated count 0.5 U 0.2-1.2 N [facility] Eosinophils/100 leukocytes in Blood by Automated count 5.8 % 0-7 N [facility] Eosinophils [#/volume] in Blood by Automated count 0.4 U 0.0-0.5 N [facility] Basophils/100 leukocytes in Blood by Automated count 0.6 % 0.4-1 .3 N [facility] Basophils [#/volume] in Blood by Automated count 0.0 U 0.0-0.2 N [facility] NUCLEATED RED BLOOD CELL 0 % [facility] NUCLEATED RED BLOOD CELL# 0 U [facility] Immature granulocytes [Presence] in Blood by Automated count 0-2 N [facility] Immature granulocytes [#/volume] in Blood by Automated count 0.0 U 0-0.1 N [facility] Manual Differential panel - Blood NO [facility] ID Date Data Source [id number] 03/05/2019 09:19:00 AM EST [facility] Name: CASSIE JINAG : 1955 Age: 63 MR#: [id number] Admit Date: 02/19/19 Provider: Mikey Arroyo Room #: 293 Consulting Provider: Cesario Gao MD Dictation Date: 02/06 ProgressNote Subjective-ROS Date of service Date of service:: 03/05/19 Review of Systems ROS (Free Text/Narrative):: Patient seen and examined, chart reviewed. Patient is postop day 12, for repair of right distal femur fracture. Patient states she is feeling better. Reports right knee pain is stabbing, rated 5/10. She states her knee pain is getting better and she is able to move her knee more. Denies headache, chest pain, dyspnea, abdominal pain, nausea, lightheadedness, numbness and tingling. General: Denies Fever, Chills and Fatigue HEENT: Denies Headaches and Visual Changes Endocrine: Denies Loss of appetite and Increased appetite Cardiovascular: Denies Chest Pain, Palpitations and Light Headedness Pulmonary: Denies Dyspnea and Cough Gastrointestinal: Denies nausea, vomiting, abdominal pain, diarrhea and constipation Genitourinary: Denies Dysuria and Frequency Musculoskeletal: Denies Muscle Pain and Joint Pain Neurological: Denies Weakness, Numbness, Incoordination, Change in speech and Confusion Psych: Denies anxiety and depression Allergic/Immunologic: Denies rash and fever Attestation/Length Of Stay: 02/19/19 17:52 Admit to Inpatient, Acute [STATUS] Routine Location: [facility] Primary diagnosis: s/p femur fracture Isolation: Standard precautions Admitting Provider: ELLIE JEFFERSON Status: Inpatient Admission Anticipated Length of stay:: 2-3 Midnights Vital Signs and I O Vitals and I O: Vital Signs last 12 hours Pulse Resp BP Pulse Ox 03/05/19 07:51 87 18 97 03/05/19 07:43 75 18 99 03/05/19 07:41 75 18 99 03/05/19 05:05 73 117/61 Intake Output Last 24 Hours 03/03/19 03/04/19 03/05/19 23:59 23:59 23:59 Intake Total 360 / 360 1080 / 1080 600 / 600 Output Total 400 / 400 Balance 360 / 360 680 / 680 600 / 600 Results Results: 03/03/19 06:19 03/05/19 06:00 Laboratory Results Last 24 hours 03/04/19 11:54: POC Glucose 139 H 03/04/19 17:23: POC Glucose 127 H 03/04/19 20:25: POC Glucose 89 03/05/19 06:00: Sodium 144, Potassium 4.0, Chloride 111 H, Carbon Dioxide 26, Anion Gap 11, BUN 10, Creatinine 0.5, GFR Calculation Greater than 60, Glucose 47 L, Calcium 8.6 Microbiology 02/19/19 16:47 Urine,cath Urine Culture - Final Proteus Mirabilis Exam Orientation: Alert, Oriented x3, Cooperative and No acute distress HEENT: Atraumatic and PERRLA Lungs: normal lung sounds bilaterally; negative for respiratory distress, wheezes, rales and rhonchi Cardiovascular Exam: regular rate and normal rhythm Abdomen: Normal bowel sounds and Soft; negative for Tenderness Extremities: pedal edema (mild to moderate) and other (right lower extremity with decreaed ROM, belia located in right groin and right knee, sutures right knee. Areas are clean and dry. No drainage note. No ecchymosis noted.) Skin: Skin warm and dry, Mucus membranes moist and Color normal for race Neurological: Normal speech, Strength at 5/5 X4 ext, Normal tone and Sensation intact Psych/Mental Status: normal affect and normal mood Assessment/Plan Impressions/Problems (1) Fracture of distal end of right femur: Code(s): S72.401A - Unspecified fracture of lower end of right femur, initial encounter for closed fracture SNOMED Code(s): 037011230 Permanent Plan: Continue with OT/ PT. continue with pain management. Continue to monitor surgical sites for signs symptoms of infection. (2) GERD (gastroesophageal reflux disease): Code(s): K21.9 - Gastro-esophageal reflux disease without esophagitis SNOMED Code(s): 580525132 Per manent Plan: Continue with home medication pantoprazole (3) Chronic constipation: Code(s): K59.09 - Other constipation SNOMED Code(s): 801139792 Permanent Plan: Continue to monitor, bowel regimen as ordered (4) Hypothyroid: Code(s): E03.9 - Hypothyroidism, unspecified SNOMED Code(s): 63002440 Permanent Plan: Continue with levothyroxine (5) Type 2 diabetes mellitus: Code(s): E11.9 - Type 2 diabetes mellitus without complications SNOMED Code(s): 45567401 Permanent Plan: Accu-Cheks AC at bedtime with sliding scale coverage as well as Januvia. Add Metformin 750 mg BID was on 850 mg BID at home. Resume glimepiride. Consistant carb diet. (6) Hyperlipidemia: Code(s): E78.5 - Hyperlipidemia, unspecified SNOMED Code(s): 65804947 Permanent Plan: Continue home medication pravastatin (7) Fibromyalgia: Code(s): M79.7 - Fibromyalgia SNOMED Code(s): 929377078 Permanent Plan: Gabapentin, Cymbalta andClonazepam (8) Depression: Code(s): F32.9 - Major depressive disorder, single episode, unspecified SNOMED Code(s): 04270583 Permanent Plan: Cymbalta, Lexapro, Clonazepam. Resume home nortriptyline (9) Chronic pain: Code(s): G89.29 - Other chronic pain SNOMED Code(s): 58775437 Permanent Plan: Baclofen and Flexeril for back spasms, Gabapentin for neuropathy, oxycodone 1 to 2 tablets every 4 hours for acute, Voltaren topical and home dose of prednisone 10 mg daily (10) Insomnia: Code(s): G47.00 - Insomnia, unspecified SNOMED Code(s): 957609610 Permanent Plan: Home dose Rozerem (11) Bilateral lower extremity edema: Code(s): R60.0 - Localized edema SNOMED Code(s): 364739558 Permanent Plan: Patient was on low dose indapamide at home which is available. Begin Lasix 20 mg daily and she can resume home diuretic regimen at discharge. A P Free Text/Narrative :: Patient making good progress, plan is to discharge tomorrow after suture and staple removal. CODE STATUS: Full code Attending: Dr. Jefferson Care plan: Plan of care discussed with patient and or family, Patient encouraged to ask questions about plan, Patient agrees with plan of care and Discharge plan and instructions discussed with patient and or family Dictated by: <Electronically signed by Mikey RODRIGES> Mikey RODRIGES 03/05/19 0929 Mikey Arroyo SIGNATURE DA Report Cosigners: <<Signature on File>> Ellie Jefferson MD 03/06/19 1221 <Electronically signed by Ellie Jefferson MD> Ellie Jefferson MD 03/06/19 1221 D: HAMMAD 03/05/19918 T: HAMMAD 03/05/19918 CC: Name Value Range Interpretation Code Description Data Tashia rce(s) Supporting Document(s) ID Date Data Source [id number] 03/05/2019 07:08:00 AM [facility] Name Value Range Interpretation Code Description Data Tashia rce(s) Supporting Document(s) Urea nitrogen [Mass/volume] in Serum or Plasma 10 mg/dL 9-23 [facility] Sodium [Moles/volume] in Serum or Plasma 144 mmol/L 132-146 [facility] Potassium [Moles/volume] in Serum or Plasma 4.0 mmol/L 3.5-5.5 [facility] Chloride [Moles/volume] in Serum or Plasma 111 mmol/L 99-109 Above high normal [facility] Carbon dioxide, total [Moles/volume] in Serum or Plasma 26 mmol/L 20 -31 [facility] Anion gap in Serum or Plasma 11 mmol/L 8-16 [facility] Glucose [Mass/volume] in Serum or Plasma 47 mg/dL 74-106 Below low normal [facility] @Review & document.Repeated by: Sury Davenport 03/05/19 07.Result Confirmation: 47 mg/dL Creatinine 0.5 mg/dL 0.5-1.1 [facility] Glomerular filtration rate/1.73 sq M.pre dicted [Volume Rate/Area] in Serum or Plasma Greater Than 60 ABOVE 60 [facility] Calcium [Mass/volume] in Serum or Plasma 8.6 mg/dL 8.5-10.1 [facility] ID Date Data Source [id number] 03/04/2019 11:52:00 AM [facility] Name: CASSIE JIANG : 1955 Age: 63 MR#: [id number] Admit Date: 02/19/19 Provider: Mariah Shepherd NP Room #: 293 Consulting Provider: Cesario Gao MD Dictation Date: 02/05 11/23 ProgressNote Subjective-ROS Date of service Date of service:: 03/04/19 Review of Systems ROS (Free Text/Narrative):: Patient was seen and examined the morning. She is eager for home plan Tuesday. She slept better last night and has no complaints this morning. General: Denies Fever, Chills and Night Sweats HEENT: Denies Headaches Endocrine: Reports No Symptoms/Complaints Cardiovascular: Reports Edema; Denies Chest Pain, Palpitations, Orthopnea, Paroxysmal Noc. Dyspnea and Light Headedness Pulmonary: Denies Dyspnea, Cough and Pleuritic Chest Pain Gastrointestinal: Denies nausea, vomiting, abdominal pain, diarrhea and constipation Genitourinary: Reports Incontinence; Denies Dysuria Musculoskeletal: Reports Joint Pain (Bilateral knees) and Leg Pain (Right) Neurological: Denies Weakness, Change in speech and Confusion Psych: Denies anxiety and depression Hematological/Lymphatic: Reports No Symptoms/Complaints Allergic/Immunologic: Denies rash, hives and fever Attestation/Length Of Stay: 02/19/19 17:52 Admit to Inpatient, Acute [STATUS] Routine Location: [facility] Primary diagnosis: s/p femur fracture Isolation: Standard precautions Admitting Provider: ELLIE JEFFERSON Status: Inpatient Admission Anticipated Length of stay:: 2-3 Midnights Vital Signs and I O Vitals and I O: Vital Signs last 12 hours Temp Pulse Pulse Resp BP BP Pulse Ox 03/04/19 09:28 78 116/67 03/04/19 09:00 99.4 F 78 18 116/67 97 03/04/19 08:46 78 20 96 03/04/19 08:40 82 18 96 03/04/19 08:30 78 20 96 Intake Output Last 24 Hours 03/02/19 03/03/19 03/04/19 23:59 23:59 23:59 Intake Total 970 / 970 360 / 360 480 / 480 Balance 970 / 970 360 / 360 480 / 480 Results Results: 03/03/19 06:19 03/03/19 06:19 Laboratory Results Last 24 hours 03/03/19 12:09: POC Glucose 146 H 03/03/19 17:10: POC Glucose 157 H 03/03/19 20:30: POC Glucose 93 03/04/19 07:20: POC Glucose 93 Microbiology 02/19/19 16:47 Urine,cath Uri ne Culture - Final Proteus Mirabilis Exam Orientation: Alert, Oriented x3, Cooperative and No acute distress HEENT: Atraumatic and Mucous membr. moist/pink Lungs: normal lung sounds bilaterally; negative for wheezes, rales and rhonchi Cardiovascular Exam: regular rate, normal rhythm and no murmur Abdomen: Normal bowel sounds and Soft; negative for Tenderness Extremities: capillary refill brisk, pedal edema (non pitting) and other (Decreaed ROM right leg, belia right groin and right knee CDI, sutures right knee CDI); negative for calf tenderness Neurological: Normal gait, Normal speech, Strength at 5/5 X4 ext, Normal tone, Sensation intact and Other Psych/Mental Status: normal affect and normal mood Assessment/Plan Impressions/Problems (1) Fracture of distal end of right femur: Code(s): S72.401A - Unspecified fracture of lower end of right femur, initial encounter for closed fracture SNOMED Code(s): 754201460 Permanent Plan: Continue with OT/ PT. continue with pain management. Continue to monitor surgical sites for signs symptoms of infection. (2) GERD (gastroesophageal reflux disease): Code(s): K21.9 - Gastro-esophageal reflux disease without esophagitis SNOMED Code(s): 595644827 Permanent Plan: Continue with home medication pantoprazole (3) Chronic constipation: Code(s): K59.09 - Other constipation SNOMED Code(s): 185554702 Permanent Plan: Continue to monitor, bowel regimen as ordered (4) Hypothyroid: Code(s): E03.9 - Hypothyroidism, unspecified SNOMED Code(s): 61392610 Permanent Plan: Continue with levothyroxine (5) Type 2 diabetes mellitus: Code(s): E11.9 - Type 2 diabetes mellitus without complications SNOMED Code(s): 03404091 Permanent Plan: Accu-Cheks AC at bedtime with sliding scale coverage as well as Januvia. Add Metformin 750 mg BID was on 850 mg BID at home. Resume glimepiride. Consistant carb diet. ( 6) Hyperlipidemia: Code(s): E78.5 - Hyperlipidemia, unspecified SNOMED Code(s): 80430812 Permanent Plan: Continue home medication pravastatin (7) Fibromyalgia: Code(s): M79.7 - Fibromyalgia SNOMED Code(s): 466814232 Permanent Plan: Gabapentin, Cymbalta andClonazepam (8) Depression: Code(s): F32.9 - Major depressive disorder, single episode, unspecified SNOMED Code(s): 62952495 Permanent Plan: Cymbalta, Lexapro, Clonazepam. Resume home nortriptyline (9) Chronic pain: Code(s): G89.29 - Other chronic pain SNOMED Co de(s): 66209174 Permanent Plan: Baclofen and Flexeril for back spasms, Gabapentin for neuropathy, oxycodone 1 to 2 tablets every 4 hours for acute, Voltaren topical and home dose of prednisone 10 mg daily (10) Insomnia: Code(s): G47.00 - Insomnia, unspecified SNOMED Code(s): 142543669 Permanent Plan: Home dose Rozerem (11) Bilateral lower extremity edema: Code(s): R60.0 - Localized edema SNOMED Code(s): 506437713 Permanent Plan: Patient was on low dose indapamide at home which is available. Begin Lasix 20 mg daily and she can resume home diuretic regimen at discharge. A P Free Text/Narrative :: Plan: Continue PT/OT, pain control, bowel regimen. Resume Lexapro, Nortriptyline, Glimepiride andASA. Plan is for discharge home Tuesday patient states she has made arrangements for help at home andshe states she has adequate supply of her home medications. Need to discuss staple/suture removal and home anticoagulation plan with orthopedics prior to discharge. Patient is a full code. Continue Lovenox for DVT prophylaxis Care plan: Plan of care discussed with patient and or family, Patient encouraged to ask questions about plan, Patient agrees with plan of care and Discharge plan and instructions discussed with patient and or family Dictated by: <Electronically signed by Mariah Shepherd NP> Mariah Shepherd NP 03/04/19 1208 Mariah Shepherd NP SIGNATURE DA Report Cosigners: <<Signature on File>> Ellie Jefferson MD 03/06/19 1221 <Electronically signed by Ellie Jefferson MD> Ellie Jefferson MD 03/06/19 1221 D: ANJALI 03/04/19 1152 T: ANJALI 03/04/19 1152 CC: Name Value Range Interpretation Code Description Data Tashia rce(s) Supporting Document(s) ID Date Data Source [id number] 03/03/2019 02:24:00 PM [facility] Name: CASSIE JIANG : 1955 Age: 63 MR#: [id number] Admit Date: 02/19/19 Provider: Mariah Shepherd NP Room #: 293 Consulting Provider: Cesario Gao MD Dictation Date: 02/05 10/23 ProgressNote Subjective-ROS Date of service Date of service:: 03/03/19 Review of Systems ROS (Free Text/Narrative):: Patient was seen and examined she was OOB in chair. She reports increased pain with attempting to limit narcotics. She is progressing well with PT/OT and is eager for a home plan. She has had difficulty sleeping. General: Denies Fever, Chills and Fatigue HEENT: Denies Headaches Endocrine: Reports No Symptoms/Complaints Cardiovascular: Denies Chest Pain, Palpitations, Orthopnea, Paroxysmal Noc. Dyspnea and Edema Pulmonary: Denies Dyspnea and Cough Gastrointestinal: Denies nausea, vomiting, abdominal pain, diarrhea and constipation Genitourinary: Reports Incontinence; Denies Dysuria Musculoskeletal: Reports Muscle Pain (right thigh), Joint Pain (Bilateral knees) and Leg Pain (Rightfemur) Neurological: Denies Weakness, Incoordination, Change in speech and Confusion Psych: Denies anxiety and depression Hematologi cecelia/Lymphatic: Reports No Symptoms/Complaints Allergic/Immunologic: Denies rash, hives and fever Attestation/Length Of Stay: 02/19/19 17:52 Admit to Inpatient, Acute [STATUS] Routine Location: [facility] Primary diagnosis: s/p femur fracture Isolation: Standard precautions Admitting Provider: ELLIE JEFFEROSN Status: Inpatient Admission Anticipated Length of stay:: 2-3 Midnights Vital Signs and I O Vitals and I O: Vital Signs last 12 hours Temp Pulse Pulse Resp BP Pulse Ox 03/03/19 09:00 97.2 F L 80 18 113/55 92 L 03/03/19 07:39 70 18 96 03/03/19 07:35 74 18 96 03/03/19 07:30 70 18 96 Intake Output Last 24 Hours 03/01/19 03/02/19 03/03/19 23:59 23:59 23:59 Intake Total 1200 / 1200 970 / 970 120 / 120 Output Total 700 / 700 Balance 500 / 500 970 / 970 120 / 120 Results Results: 03/03/19 06:19 03/03/19 06:19 Laboratory Results Last 24 hours 03/02/19 12:14: POC Glucose 175 H 03/02/19 20:29: POC Glucose 220 H 03/03/19 06:19: WBC 8.8, RBC 2.78 L, Hgb 8.3 L, Hct 26.8 L, MCV 96.4 H, MCH 29.9, MCHC 31.0 L, RDW 1 7 H, Plt Count 504 H, MPV 9.3, Immature Gran % (Auto) 0.3, Neut % (Auto) 43.8, Lymph % (Auto) 43.1, [place] % (Auto) 6.3, Eos % (Auto) 6.0, Baso % (Auto) 0.5, Lymph # (Auto) 3.8, Abs Immat Gran (auto) 0.0, Add Manual Diff No, Absolute Neutrophils 3.9, Monocytes # 0.6, Absolute Eosinophils 0.5, Absolute Basophils 0.0 03/03/19 06:19: Sodium 143, Potassium 4.1, Chloride 110 H, Carbon Dioxide 27, Anion Gap 10, BUN 12, Creatinine 0.6, GFR Calculation Greater than 60, Glucose 104, Calcium 8.6, Total Bilirubin 0.6, AST 12, ALT 18, Alkaline Phosphatase 117, Serum Total Protein 5.8, Albumin 2.7 L 03/03/19 07:23: POC Glucose 115 H 03/03/19 12:09: POC Glucose 146 H Microbiology 02/19/19 16:47 Urine,cath Urine Culture - Final Proteus Mirabilis Exam Orientation: Alert, Oriented x3, Cooperative and No acute distress HEENT: Atraumatic, PERRLA and Mucous membr. moist/pink Lungs: normal lung sounds bilaterally; negative fo r respiratory distress, wheezes, rales and rhonchi Cardiovascular Exam: regular rate, normal rhythm and normal heart sounds Abdomen: Normal bowel sounds and Soft; negative for Tenderness Extremities: capillary refill brisk and other (Decreased ROM right knee, Belia right groin and right knee CARETAKER RESORT without erythema. Sutures right knee CARETAKER RESORT no erythema); negative for calf tenderness Skin: Skin warm and dry, Mucus membranes moist and Color normal for race; negative for Rash Neurological: Normal speech, Strength at 5/5 X4 ext, Normal tone and Sensation intact Psych/Mental Status: normal affect and normal mood Assessment/Plan Impressions/Problems (1) Fracture of distal end of right femur: Code(s): S72.401A - Unspecified fracture of lower end of right femur, initial encounter for closed fracture SNOMED Code(s): 480938828 Permanent Plan: Continue with OT/ PT. continue with pain management and trending labs for anemia postop. Continue to monitor surgical sites for signs symptoms of infection. (2) GERD (gastroesophageal reflux disease): Code(s): K21.9 - Gastro-esophageal reflux disease without esophagitis SNOMED Code(s): 232920426 Permanent Plan: Continue with home medication pantoprazole (3) Chronic constipation: Code(s): K59.09 - Other constipation SNOMED Code(s): 384262651 Permanent Plan: Continue to monitor, bowel regimen as ordered (4) Hypothyroid: Code(s): E03.9 - Hypothyroidism, unspecified SNOMED Code(s): 45434944 Permanent Plan: Continue with levothyroxine (5) Type 2 diabetes mellitus: Code(s): E11.9 - Type 2 diabetes mellitus without complications SNOMED Code(s): 20148493 Permanent Plan: Accu-Cheks AC at bedtime with sliding scale coverage as well as Januvia. Add Metformin 750 mg BID was on 850 mg BID at home. She was also on alogliptin at home which is nonformulary here. Consistant carb diet. (6) Hyperlipidemia: Code(s): E78.5 - Hyperlipidemia, unspecified SNOMED Code(s): 83116405 Permanent Plan: Continue home medication pravastatin (7) Fibromyalgia: Code(s): M79.7 - Fibromyalgia SNOMED Code(s): 557968829 Permanent Plan: Gabapentin and Cymbalta. Resume home dose of Clonazepam (8) Depression: Code(s): F32.9 - Major depressive disorder, single episode, unspecified SNOMED Code(s): 41353165 Permanent Plan: Cymbalta and Lexapro, Rozerem for insomnia. Resume Clonazepam (9) Chronic pain: Code(s): G89.29 - Other chronic pain SNOMED Code(s): 64999680 Permanent Plan: Baclofen and Flexeril for back spasms, Gabapentin for neuropathy, oxycodone 1 to 2 tablets every 4 hours for acute, Voltaren topical and home dose of prednisone 10 mg daily A P Free Text/Narrative :: Plan: Continue PT/OT, pain control and bowel regimen. Encouraged to take pain medications if needed to do her ADLs and therapy and to assist with sleep. Begin Metformin 750 mg BID and resume home dose of clonazepam. Her labs have been stable will stop daily labs. Anticipate home plan on Tuesday pending PT/OT recommendations and patient's ability to get help arranged at home. Discuss with ortho re staple and suture removal prior to discharge. DVT prophylaxis Lovenox, patient is a full code. Plan of care discussed with attending physician Dr. Jefferson. Care plan: Plan of care discussed with patient and or family, Patient encouraged to ask questions about plan, Patient agrees with plan of care and Discharge plan and instructions discussed with patient and or family Dictated by: <Electronically signed by Mariah Shepherd NP> Mariah Shepherd NP 03/03/19 1445 Mariah Shepherd NP SIGNATURE DA Report Cosigners: <<Signature on File>> Ellie Jefferson MD 03/06/19 1221 <Electronically signed by Ellie Jefferson MD> Ellie Jefferson MD 03/06/19 1221 D: ANJALI 03/03/19 1424 T: ANJALI 03/03/19 1424 CC: Name Value Range Interpretation Code Description Data Tashia rce(s) Supporting Document(s) ID Date Data Source [id number] 03/03/2019 06:49:00 AM [facility] Name Value Range Interpretation Code Description Data Tashia e(s) Supporting Document(s) Leukocytes [#/volume] in Blood by Automated count 8.8 10*3/uL 4.45-10 .71 [facility] Erythrocytes [#/volume] in Blood by Automated count 2.78 10*6/uL 4.20-5.40 Below low normal [facility] Hemoglobin [Moles/volume] in Blood 8.3 g/dL 10.7-15.4 Below low no rmal [facility] Hematocrit [Volume Fraction] of Blood by Automated count 26.8 % 37-47 Below low normal [facility] Erythrocyte mean corpuscular volume [Ent itic volume] in Cord blood by Automated count 96.4 fL 80-96 Above high normal [facility] Erythrocyte mean corpuscular hemoglobin [Entitic mass] by Automated count 29.9 pg 27-31 N [facility] Erythrocyte mean corpuscular hemoglobin concentration [Mass/volume] in Cord blood 31.0 g/dL 33-[address] [facility] Erythrocyte distribution width [Entitic volume] by Automated cou nt 17 % 11-15 Above high normal [facility] Platelets [#/volume] in Blood by Automated count 504 10*3/uL 130-472 Above high normal [facility] Platelet mean volume [Entitic volume] in Blood 9.3 fL 9.1-13.1 N [facility] Neutrophils/100 leukocytes in Blood by Automated count 43.8 % 41- 77 N [facility] Neutrophils [#/volume] in Blood by Automated count 3.9 U 1.7-7.6 N [facility] Lymphocytes/100 leukocytes in Blood by Automated count 43.1 % 14- 46 N [facility] Lymphocytes [#/volume] in Blood by Automated count 3.8 U 0.6-4.6 N [facility] Monocytes/100 leukocytes in Blood by Automated count 6.3 % 4-12 N [facility] Monocytes [#/volume] in Blood by Automated count 0.6 U 0.2-1.2 N [facility] Eosinophils/100 leukocytes in Blood by Automated count 6.0 % 0-7 N [facility] Eosinophils [#/volume] in Blood by Automated count 0.5 U 0.0-0.5 N [facility] Basophils/100 leukocytes in Blood by Automated count 0.5 % 0.4-1 .3 N [facility] Basophils [#/volume] in Blood by Automated count 0.0 U 0.0-0.2 N [facility] NUCLEATED RED BLOOD CELL 0 % [facility] NUCLEATED RED BLOOD CELL# 0 U [facility] Immature granulocytes [Presence] in Blood by Automated count 0-2 N [facility] Immature granulocytes [#/volume] in Blood by Automated count 0.0 U 0-0.1 N [facility] Manual Differential panel - Blood NO [facility] ID Date Data Source [id number] 03/03/2019 07:26:00 AM EST [facility] Name Value Range Interpretation Code Description Data Tashia rce(s) Supporting Document(s) Urea nitrogen [Mass/volume] in Serum or Plasma 12 mg/dL 9-23 [facility] Sodium [Moles/volume] in Serum or Plasma 143 mmol/L 132-146 [facility] Potassium [Moles/volume] in Serum or Plasma 4.1 mmol/L 3.5-5.5 [facility] Chloride [Moles/volume] in Serum or Plasma 110 mmol/L 99-109 Above high normal [facility] Carbon dioxide, total [Moles/volume] in Serum or Plasma 27 mmol/L 20 -31 [facility] Anion gap in Serum or Plasma 10 mmol/L 8-16 [facility] Glucose [Mass/volume] in Serum or Plasma 104 mg/dL 74-106 [facility] Creatinine 0.6 mg/dL 0.5-1.1 [facility] Glomerular filtration rate/1.73 sq M.pre dicted [Volume Rate/Area] in Serum or Plasma Greater Than 60 ABOVE 60 [facility] Alanine aminotransferase [Enzymatic acti vity/volume] in Serum or Plasma by With P-5'-P 18 U/L 10-49 N [facility] ital Aspartate aminotransferase [Enzymatic ac tivity/volume] in Serum or Plasma by With P-5'-P 12 U/L 0-33 N [facility] pital Alkaline phosphatase [Enzymatic activity/volume] in Serum or Plasma 117 U/L 45-129 [facility] Calcium [Mass/volume] in Serum or Plasma 8.6 mg/dL 8.5-10.1 [facility] Bilirubin.total [Mass/volume] in Serum or Plasma 0.6 mg/dL 0.3-1.2 [facility] Albumin [Mass/volume] in Serum or Plasma by Bromocresol purple (BCP) dye binding method 2.7 g/dL 3.2-4.[address] [facility] Protein [Mass/volume] in Serum or Plasma 5.8 g/dL 5.7-8.2 [facility] ID Date Data Source [id number] 03/02/2019 04:15:00 PM [facility] Name: CASSIE JIANG : 1955 Age: 63 MR#: [id number] Admit Date: 02/19/19 Provider: Celena Matute Room #: 293 Consulting Provider: Cesario Gao MD Dictation Date: 02/05 09/22 ProgressNote Subjective-ROS Date of service Date of service:: 03/02/19 Review of Systems ROS (Free Text/Narrative):: I saw and examine the patient. reviewed the chart. She is in good spirit. still reports her chronic pain, but feels better of her progress with PT. The patient might be discharged home on Tuesday. General: Reports No Symptoms/Complaints; Denies Fever, Chills, Night Sweats and Fatigue HEENT: Reports No Symptoms Complaints; Denies Headaches, Visual Changes, Dysphasia and Sinus Congestion Endocrine: Reports No Symptoms/Complaints; Denies Excessive sweating, Loss of appetite, Polydipsia and Polyuria Cardiovascular: Reports No Symptoms/Complaints; Denies Chest Pain, Palpitations and Orthopnea Pulmonary: Reports No Sy mptoms/Complaints; Denies Dyspnea, Cough and Pleuritic Chest Pain Gastrointestinal: Reports No Symptoms/Complaints; Denies nausea, vomiting, abdominal pain, diarrhea,constipation and heartburn Genitourinary: Reports No Symptoms/Complaints; Denies Dysuria, Frequency, Hematuria and Retention Musculoskeletal: Reports Other (reports her chronic back and muscles pain, reports feeling better with the pain medications and PT) Neurological: Reports No Symptoms/Complaints; Denies Weakness and Numbness Psych: Reports No Symptoms/Complaints; Denies anxiety, depression, hopelessness and helplessness Hematological/Lymphatic: Reports No Symptoms/Complaints Allergic/Immunologic: Reports No Symptoms/Complaints Attestation/Length Of Stay: 02/19/19 17:52 Admit to Inpatient, Acute [STATUS] Routine Location: [facility] Primary diagnosis: s/p femur fracture Isolation: Standard precautions Admitting Provider: ELLIE JEFFERSON Status: Inpatient Admission Anticipated Length of stay:: 2-3 Midnights Vital Signs and I O Vitals and I O: Vital Signs last 12 hours Temp Pulse Pulse Resp BP Pulse Ox 03/02/19 07:22 75 18 94 L 03/02/19 07:17 75 18 94 L 03/02/19 07:12 75 18 94 L 03/02/19 07:10 98.1 F 74 18 106/66 94 L Intake Output Last 24 Hours 02/28/19 03/01/19 03/02/19 23:59 23:59 23:59 Intake Total 1500 / 1500 1200 / 1200 720 / 720 Output Total 500 / 500 700 / 700 Balance 1000 / 1000 500 / 500 720 / 720 R esults Results: 03/02/19 05:45 03/02/19 05:45 Laboratory Results Last 24 hours 03/01/19 21:06: POC Glucose 108 03/02/19 05:45: WBC 7.4, RBC 2.72 L, Hgb 8.1 L, Hct 27.5 L, MCV 101.1 H D, MCH 29.8, MCHC 29.5 L, RDW 17 H, Plt Count 432, MPV 9.5, Immature Gran % (Auto) 0.3, Neut % (Auto) 40.0 L, Lymph % (Auto) 43.7, [place] % (Auto) 8.7, Eos % (Auto) 6.8, Baso % (Auto) 0.5, Lymph # (Auto) 3.2, Abs Immat Gran (auto) 0.0, Add Manual Diff No, Absolute Neutrophils 3.0, Monocytes # 0.6, Absolute Eosinophils 0.5, Absolute Basophils 0.0 03/02/19 05:45: Sodium 143, Potassium 4.1, Chloride 110 H, Carbon Dioxide 27, Anion Gap 10, BUN 12, Creatinine 0.5, GFR Calculation Greater than 60, Glucose 105, Calcium 8.5, Phosphorus 4.4, Magnesium 2.2, Total Bilirubin 0.7, AST 16, ALT 18, Alkaline Phosphatase 98, Serum Total Protein 5.2 L, Albumin 2.6 L 03/02/19 07:17: POC Glucose 119 H Microbiology 02/19/19 16:47 Urine,cath Urine Culture - Final Proteus Mirabilis Exam Orientation: Alert, Oriented x3, Cooperative and No acute distress HEENT: Atraumatic, PERRLA, EOMI and Mucous membr. moist/pink Lungs: normal lung sounds bilaterally; negative for respira tory distress, wheezes, rales and rhonchi Cardiovascular Exam: regular rate, normal rhythm and no murmur Abdomen: Normal bowel sounds and Soft; negative for Tenderness, Hepatospenomegaly and Masses Extremities: Full ROM without tenderness, capillary refill brisk and other (stables and stitches on the left knee post surgical. healing skin, no signs of infection or inflammation.) Skin: Skin warm and dry, Mucus membranes moist and Color normal for race; negative for Rash Neurological: Normal speech, Strength at 5/5 X4 ext, Normal tone, Sensation intact, Cranial nerves 3-12 NL, Reflexes 2+ and Other Psych/Mental Status: normal affect and normal mood Assessment/Plan Impressions/Problems (1) Fracture of distal end of right femur: Code(s): S72.401A - Unspecified fracture of lower end of right femur, initial encounter for closed fracture SNOMED Code(s): 102748531 Permanent Plan: Continue with OT/ PT. continue with pain management and trending labs for anemia postop. C ontinue to monitor surgical sites for signs symptoms of infection. explore short-term rehabilitation options (2) GERD (gastroesophageal reflux disease): Code(s): K21.9 - Gastro-esophageal reflux disease without esophagitis SNOMED Code(s): 188804192 Permanent Plan: Continue with home medication pantoprazole (3) Chronic constipation: Code(s): K59.09 - Other constipation SNOMED Code(s): 149462412 Permanent Plan: Continue to monitor, bowel regime as ordered (4) Hypothyroid: Code(s): E03.9 - Hypothyroidism, unspecified SNOMED Code(s): 81777675 Permanent Plan: Continue with levothyroxine (5) Type 2 diabetes mellitus: Code(s): E11.9 - Type 2 diabetes mellitus without complications SNOMED Code(s): 57007406 Permanent Plan: Accu-Cheks AC at bedtime with sliding scale coverage as well as Januvia. Consistant carb diet. (6) Hyperlipidemia: Code(s): E78.5 - Hyperlipidemia, unspecified SNOMED Code(s): 87033007 Permanent Plan: Continue home medication pravastatin (7) Fibromyalgia: Code(s): M79.7 - Fibromyalgia SNOMED Code(s): 477517622 Permanent Plan: Gabapentin and Cymbalta (8) Depression: Code(s): F32.9 - Major depressive disorder, single episode, unspecified SNOMED Code(s): 27245758 Permanent Plan: Cymbalta and Lexapro, Rozerem for insomnia (9) Chronic pain: Code(s): G89.29 - Other chronic pain SNOMED Code(s): 66273753 Permanent Plan: Baclofen and Flexeril for back spasms, EpiPen for neuropathy, oxycodone 1 to 2 tablets every 4 hours for stop pain, Voltaren topical and home dose of prednisone 10 mg daily A P Free Text/Narrative :: Assessment Status post operative intramedullary nailing ofright distal femur fracture DM type 2 Fibromyalgia Depression Chronic pain Ant. left 8th and 9th ribs fracture. healing left 10th and 11th (posterior) chronic anemia Hyperlipidemia GERD insomnia Plan: Dr. Gao recommends removing the sutures on Tuesday, but if she is being discharged home on Tuesday, the sutures could be removed on Tuesday too. Continue PT/OT rehab continue ferrous sulfate, acetaminophen, baclofen, flexeril, cymbalta, celecoxib, diclofenac gell, continue pravastatin, ecitalopram, Levothyroxine, Pantoprazole, prednisone, boel regimen DVT prophylaxis Lovenox GI peptic ulcer prophylaxis. not indicated. She is on Pantoprazole Attending physician Dr. Jefferson Care plan: Plan of care discussed with patient and or family, Patient encouraged to ask questions about plan, Patient agrees with plan of care and Discharge plan and instructions discussed with patient and or family Dictated by: <Electronically signed by Celena RODRIGES> Celena RODRIGES 03/02/19 1914 Celena Matute SIGNATURE DA Report Cosigners: <<Signature on File>> Ellie Jefferson MD 03/03/19 1050 <Electronically signed by Ellie Jefferson MD> Ellie Jefferson MD 03/03/19 105 D: ALBIB 03/02/191614 T: ALBIB 03/02/191614 CC: Name Value Range Interpretation Code Description Data Tashia rce(s) Supporting Document(s) ID Date Data Source [id number] 03/02/2019 06:24:00 AM EST [facility] Name Value Range Interpretation Code Description Data Tashia rce(s) Supporting Document(s) Leukocytes [#/volume] in Blood by Automated count 7.4 10*3/uL 4.45-10 .71 N [facility] Erythrocytes [#/volume] in Blood by Automated count 2.72 10*6/uL 4.20-5.40 Below low normal [facility] Hemoglobin [Moles/volume] in Blood 8.1 g/dL 10.7-15.4 Below low no rmal [facility] Hematocrit [Volume Fraction] of Blood by Automated count 27.5 % 37-47 Below low normal [facility] Erythrocyte mean corpuscular volume [Ent itic volume] in Cord blood by Automated count 101.1 fL 80-96 [facility] ital Repeated by: Sury Davenport 03/02/19 062 3.Result Confirmation: 100.7 fl Erythrocyte mean corpuscular hemoglobin [Entitic mass] by Automated count 29.8 pg 27-31 [facility] Erythrocyte mean corpuscular hemoglobin concentration [Mass/volume] in Cord blood 29.5 g/dL 33-[address] [facility] Erythrocyte distribution width [Entitic volume] by Automated cou nt 17 % 11-15 Above high normal [facility] Platelets [#/volume] in Blood by Automated count 432 10*3/uL 130-472 N [facility] Platelet mean volume [Entitic volume] in Blood 9.5 fL 9.1-13.1 [facility] Neutrophils/100 leukocytes in Blood by Automated count 40.0 % 41-77 Below low normal [facility] Neutrophils [#/volume] in Blood by Automated count 3.0 U 1.7-7.6 N [facility] Lymphocytes/100 leukocytes in Blood by Automated count 43.7 % 14- 46 N [facility] Lymphocytes [#/volume] in Blood by Automated count 3.2 U 0.6-4.6 N [facility] Monocytes/100 leukocytes in Blood by Automated count 8.7 % 4-12 N [facility] Monocytes [#/volume] in Blood by Automated count 0.6 U 0.2-1.2 N [facility] Eosinophils/100 leukocytes in Blood by Automated count 6.8 % 0-7 N [facility] Eosinophils [#/volume] in Blood by Automated count 0.5 U 0.0-0.5 N [facility] Basophils/100 leukocytes in Blood by Automated count 0.5 % 0.4-1 .3 N [facility] Basophils [#/volume] in Blood by Automated count 0.0 U 0.0-0.2 N [facility] NUCLEATED RED BLOOD CELL 0 % [facility] NUCLEATED RED BLOOD CELL# 0 U [facility] Immature granulocytes [Presence] in Blood by Automated count 0-2 N [facility] Immature granulocytes [#/volume] in Blood by Automated count 0.0 U 0-0.1 N [facility] Manual Differential panel - Blood NO [facility] ID Date Data Source [id number] 03/02/2019 06:45:00 AM EST [facility] Name Value Range Interpretation Code Description Data Tashia rce(s) Supporting Document(s) Urea nitrogen [Mass/volume] in Serum or Plasma 12 mg/dL 9-23 N [facility] Sodium [Moles/volume] in Serum or Plasma 143 mmol/L 132-146 N [facility] Potassium [Moles/volume] in Serum or Plasma 4.1 mmol/L 3.5-5.5 N [facility] Chloride [Moles/volume] in Serum or Plasma 110 mmol/L 99-109 Above high normal [facility] Carbon dioxide, total [Moles/volume] in Serum or Plasma 27 mmol/L 20 -31 N [facility] Anion gap in Serum or Plasma 10 mmol/L 8-16 N [facility] Glucose [Mass/volume] in Serum or Plasma 105 mg/dL 74-106 N [facility] Creatinine 0.5 mg/dL 0.5-1.[address] [facility] Glomerular filtration rate/1.73 sq M.pre dicted [Volume Rate/Area] in Serum or Plasma Greater Than 60 ABOVE 60 [facility] Alanine aminotransferase [Enzymatic acti vity/volume] in Serum or Plasma by With P-5'-P 18 U/L 10-49 N [facility] ital Aspartate aminotransferase [Enzymatic ac tivity/volume] in Serum or Plasma by With P-5'-P 16 U/L 0-33 N [facility] pital Alkaline phosphatase [Enzymatic activity/volume] in Serum or Plasma 98 U/L 45-129 N [facility] Calcium [Mass/volume] in Serum or Plasma 8.5 mg/dL 8.5-10.1 [facility] Bilirubin.total [Mass/volume] in Serum or Plasma 0.7 mg/dL 0.3-1.2 N [facility] Albumin [Mass/volume] in Serum or Plasma by Bromocresol purple (BCP) dye binding method 2.6 g/dL 3.2-4.[address] [facility] Protein [Mass/volume] in Serum or Plasma 5.2 g/dL 5.7-8.2 Below low normal [facility] ID Date Data Source [id number] 03/02/2019 06:45:00 AM [facility] Name Value Range Interpretation Code Description Data Tashia rce(s) Supporting Document(s) Phosphate [Mass/volume] in Serum or Plasma 4.4 mg/dL 2.4-5.1 [facility] ID Date Data Source [id number] 03/02/2019 06:45:00 AM [facility] Name Value Range Interpretation Code Description Data Tashia rce(s) Supporting Document(s) Magnesium [Mass/volume] in Serum or Plasma 2.2 mg/dL 1.3-2.7 [facility] ID Date Data Source [id number] 03/01/2019 11:23:00 AM [facility] Name: CASSIE JIANG : 1955 Age: 63 MR#: [id number] Admit Date: 02/19/19 Provider: Celena Matute Room #: 293 Consulting Provider: Cesario Gao MD Dictation Date: 02/05 08/23 ProgressNote Subjective-ROS Date of service Date of service:: 03/01/19 Review of Systems ROS (Free Text/Narrative):: The patient is seen and examined. Chart is reviewed. She reported to me a complaint against some of the overnight associate nursing as regard to the way one of them spoke to her. Itook it to the nurse it project manager and she worked on the complaint. The patient had questions about her pain meds. which was clarified by me and Dr. Goldman as regard to her needs and the risks with increasing frequency or doses of pain medications. All her questions were answered. The patient toldme her first choice for rehab is [facility], then [facility] care home facility. She needs short termrehab. The patient keeps working with the PT/OT and have progress that way. I discussed her case with the RT and she needs sleep study for NICKI, which could be done as outpatient with the follow up with her PCP General: Reports No Symptoms/Complaints; Denies Fever, Chills, Night Sweats and Fatigue HEENT: Reports No Symptoms Complaints; Denies Headaches, Visual Changes, Eye Pain and Ear Pain Endocrine: Reports No Symptoms/Complaints; Denies Excessive sweating, Loss of appetite, Polydipsia and Polyuria Cardiovascular: Reports No Symptoms/Complaints; Denies Chest Pain, Palpitations, Orthopnea and LightHeadedness Pulmonary: Reports No Symptoms/Complaints; Denies Dyspnea, Cough and Pleuritic Chest Pain Gastrointestinal: Reports No Symptoms/Complaints; Denies nausea, vomiting, abdominal pain, diarrhea and constipation Genitourinary: Reports No Symptoms/Complaints; Denies Dysuria, Frequency and Retention Musculoskeletal: Reports Muscle Pain, Joint Pain and Other (reports chronic back pain, pain her right and left knees from arthritis and the right one post operative due to her famur fracture that was treated with nailing.) Neurological: Reports No Symptoms/Complaints; Denies Weakness, Numbness, Incoordination, Change in speech, Confusion and Seizures Psych: Reports No Symptoms/Complaints; Denies anxiety, depression, hopelessness and helplessness Hematological/Lymphatic: Reports No Symptoms/Complaints Allergic/Immunologic: Reports No Symptoms/Complaints Attestation/Length Of Stay: 02/19/19 17:52 Admit to Inpatient, Acute [STATUS] Routine Location: [facility] Primary diagnosis: s/p femur fracture Isolation: Standard precautions Admitting Provider: ELLIE JEFFERSON Status: Inpatient Admission Anticipated Length of stay:: 2-3 Midnights Vital Signs and I O Vitals and I O: Vital Signs last 12 hours Temp Pulse Pulse Resp BP Pulse Ox 03/01/19 09:00 98.2 F 86 18 105/59 95 03/01/19 07:45 94 20 77 L 03/01/19 07:39 77 16 92 L 03/01/19 07:35 77 16 92 L Intake Output Last 24 Hours 02/27/19 02/28/19 03/01/19 23:59 23:59 23:59 Intake Total 600 / 600 1500 / 1500 480 / 480 Output Total 500 / 500 700 / 700 Balance 600 / 600 1000 / 1000 -220 / -220 Results Results: 03/01/19 05:35 03/01/19 05:35 Laboratory Results Last 24 hours 02/28/19 20:42: POC Glucose 170 H 03/01/19 05:35: WBC 8.3, RBC 2.67 L, Hgb 8.0 L, Hct 25.6 L, MCV 95.9, MCH 30.0, MCHC 31.3 L, RDW 16 H, Plt Count 460, MPV 9.6, Immature Gran % (Auto) 0.4, Neut % (Auto) 32.4 L, Lymph % (Auto) 51.3 H, [place] % (Auto) 6.7, Eos % (Auto) 8.4 H, Baso % (Auto) 0.8, Lymph # (Auto) 4.3, Abs Immat Gran (auto) 0.0, Add Manual Diff No, Absolute Neutrophils 2.7, Monocytes # 0.6, Absolute Eosinophils 0.7 H, Absolute Basophils 0.1 03/01/19 05:35: Sodium 142, Potassium 4.4, Chloride 108, Carbon Dioxide 27, Anion Gap 11, BUN 17, Creatinine 0.6, GFR Calculation Greater than 60, Glucose 122 H, Calcium 8.5, Phosphorus 4.0, Magnesi um 2.1, Total Bilirubin 0.6, AST 13, ALT 19, Alkaline Phosphatase 113, Serum Total Protein 5.8, Albumin 2.7 L Microbiology 02/19/19 16:47 Urine,cath Urine Culture - Final Proteus Mirabilis Exam Orientation: Alert, Oriented x3, Cooperative, No acute distress and Mild distress HEENT: Atraumatic, PERRLA, EOMI and Mucous membr. moist/pink Lungs: normal lung sounds bilaterally; negative for respiratory distress, wheezes, rales and rhonchi Cardiovascular Exam: regular rate and normal rhythm Abdomen: Normal bowel sounds and Soft; negative for Tenderness, Hepatospenomegaly and Masses Extremities: Full ROM without tenderness, capillary refill brisk and other (stables at the level of the right knee from the right distal femur fracture intramedullary nailing surgery. no erythema or signs of infections, skin looks healing) Skin: Skin warm and dry, Mucus membranes moist Neurological: Normal speech, Normal tone, Sensation intact, Cranial nerves 3-12 NL and Reflexes 2+ Psych/Mental Status: normal affect and normal mood Assessment/Plan Impressions/Problems (1) Fracture of distal end of right femur: Code(s): S72.401A - Unspecified fracture of lower end of right femur, initial encounter for closed fracture SNOMED Code(s): 835281718 Permanent Plan: Continue with OT/ PT. continue with pain management and trending labs for anemia postop. Continue to monitor surgical sites for signs symptoms of infection. explore short-term rehabilitation options (2) GERD (gastroesophageal reflux disease): Code(s): K21.9 - Gastro-esophageal reflux disease without esophagitis SNOMED Code(s): 408537706 Permanent Plan: Continue with home medication pantoprazole (3) Chronic constipation: Code(s): K59.09 - Other constipation SNOMED Code(s): 615060367 Permanent Plan: Continue to monitor, bowel regime as ordered (4) Hypothyroid: Code(s): E03.9 - Hypothyroidism, unspecified SNOMED Code(s): 53654834 Permanent Plan: Continue with levothyroxine (5) Type 2 diabetes mellitus: Code(s): E11.9 - Type 2 diabetes mellitus without complications SNOMED Code(s): 39620132 Permanent Plan: Accu-Cheks AC at bedtime with sliding scale coverage as well as Januvia. Consistant carb diet. (6) Hyperlipidemia: Code(s): E78.5 - Hyperlipidemia, unspecified SNOMED Code(s): 89442904 Permanent Plan: Continue home medication pravastatin (7) Fibromyalgia: Code(s): M79.7 - Fibromyalgia SNOMED Code(s): 009481599 Permanent Plan: Gabapentin and Cymbalta (8) Depression: Code(s): F32.9 - Major depressive disorder, single episode, unspecified SNOMED Code(s): 56199580 Permanent Plan: Cymbalta and Lexapro, Rozerem for insomnia (9) Chronic pain: Code(s): G89.29 - Other chronic pain SNOMED Code(s): 49355984 Permanent Plan: Baclofen and Flex eril for back spasms, EpiPen for neuropathy, oxycodone 1 to 2 tablets every 4 hours for stop pain, Voltaren topical and home dose of prednisone 10 mg daily A P Free Text/Narrative :: Assessment Right distal femur fracture Status post operative Intramedullary nailing of right distal femur fracture through a retrograde approach GERD Hypothyroidism DM type 2 Hyperlipidemia Fibromyalgia Depression Chronic pain, back pain anterior left 8th and 9th rib fractures (healing left post. 10th and 11th rib chronic anemia Hyperlipidemia Insomnia GERD Plan: The patient needs short term rehab. The child protective services social worker is waiting to her from [facility] for rehab admission (per the patient's first choice) otherwise she will work on admitting her to out care home here for short term rehab (the patient's second choice) The patient's ambulation is improving and she keeps working with the PT/OT team Pain medications and doses were discussed with the patient and she agrees with the plan of care The patient's complaints about nursing staff was addressed with the nurse it project manager who discussed it with the patient Continue ferrous sulfate for anemia acetaminophen, Baclofen, Flexeril, Cymbalta, Celecoxib, Diclofenac gell for pain Pravastatin for hyperlipidemia Ecitalopram for depression Melatonin for insomnia Insulin for DM, accuchecks and sliding scale Levothyroxine for Hypothyroidism Pantoprazole for GERD Prednisone for arthritis continue the bowel regimine for constipation DVt prophylaxis continue enoxaparin GI prophylaxis not indicated. the patient is on Pantoprazole Attending physician Dr. Goldman Care plan: Plan of care discussed with patient and or family, Patient encouraged to ask questions about plan, Patient agrees with plan of care and Discharge plan and instructions discussed with patient and or family Dictated by: <Electronically signed by Celena RODRIGES> Celena RODRIGES 03/01/19 1244 Celena Matute SIGNATURE DA Report Cosigners: D: ALBIB 03/01/19 1123 T: ALBIB 03/01/19 1123 CC: ADDENDUM: The patient will need sleep study as outpatient to be arranged by her PCP based on RT recommendation Dictated by: <Electronically signed by Celena RODRIGES> 03/01/19 1246 Addendum Cosigners: <Electronically signed by Ethan Goldman MD> 03/01/19 1318 D: ALBIB 03/01/19 1246 T: ALBIB 03/01/19 1246 CC: Name Value Range Interpretation Code Description Data Tashia rce(s) Supporting Document(s) ID Date Data Source [id number] 03/01/2019 06:05:00 AM EST [facility] Name Value Range Interpretation Code Description Data Tashia rce(s) Supporting Document(s) Leukocytes [#/volume] in Blood by Automated count 8.3 10*3/uL 4.45-10 .71 N [facility] Erythrocytes [#/volume] in Blood by Automated count 2.67 10*6/uL 4.20-5.40 Below low normal [facility] Hemoglobin [Moles/volume] in Blood 8.0 g/dL 10.7-15.4 Below low no rmal [facility] Hematocrit [Volume Fraction] of Blood by Automated count 25.6 % 37-47 Below low normal [facility] Erythrocyte mean corpuscular volume [Ent itic volume] in Cord blood by Automated count 95.9 fL 80-[address] [facility] Erythrocyte mean corpuscular hemoglobin [Entitic mass] by Automated count 30.0 pg 27-31 N [facility] l Erythrocyte mean corpuscular hemoglobin concentration [Mass/volume] in Cord blood 31.3 g/dL 33-[address] [facility] Erythrocyte distribution width [Entitic volume] by Automated cou nt 16 % 11-15 Above high normal [facility] Platelets [#/volume] in Blood by Automated count 460 10*3/uL 130-472 N [facility] Platelet mean volume [Entitic volume] in Blood 9.6 fL 9.1-13.1 N [facility] Neutrophils/100 leukocytes in Blood by Automated count 32.4 % 41-77 Below low normal [facility] Neutrophils [#/volume] in Blood by Automated count 2.7 U 1.7-7.6 N [facility] Lymphocytes/100 leukocytes in Blood by Automated count 51.3 % 14-46 Above high normal [facility] Lymphocytes [#/volume] in Blood by Automated count 4.3 U 0.6-4.6 N [facility] Monocytes/100 leukocytes in Blood by Automated count 6.7 % 4-12 N [facility] Monocytes [#/volume] in Blood by Automated count 0.6 U 0.2-1.2 N [facility] Eosinophils/100 leukocytes in Blood by Automated count 8.4 % 0-7 Above high normal [facility] Eosinophils [#/volume] in Blood by Automated count 0.7 U 0.0-0.5 Above high normal [facility] Basophils/100 leukocytes in Blood by Automated count 0.8 % 0.4-1 .3 N [facility] Basophils [#/volume] in Blood by Automated count 0.1 U 0.0-0.2 N [facility] NUCLEATED RED BLOOD CELL 0 % [facility] NUCLEATED RED BLOOD CELL# 0 U [facility] Immature granulocytes [Presence] in Blood by Automated count 0-2 N [facility] Immature granulocytes [#/volume] in Blood by Automated count 0.0 U 0-0.1 N [facility] Manual Differential panel - Blood NO [facility] ID Date Data Source [id number] 03/01/2019 06:35:00 AM EST [facility] Name Value Range Interpretation Code Description Data Tashia rce(s) Supporting Document(s) Urea nitrogen [Mass/volume] in Serum or Plasma 17 mg/dL 9-23 N [facility] Sodium [Moles/volume] in Serum or Plasma 142 mmol/L 132-146 N [facility] Potassium [Moles/volume] in Serum or Plasma 4.4 mmol/L 3.5-5.5 N [facility] Chloride [Moles/volume] in Serum or Plasma 108 mmol/L 99-109 [facility] Carbon dioxide, total [Moles/volume] in Serum or Plasma 27 mmol/L 20 -31 [facility] Anion gap in Serum or Plasma 11 mmol/L 8-16 [facility] Glucose [Mass/volume] in Serum or Plasma 122 mg/dL 74-106 Above high normal [facility] Creatinine 0.6 mg/dL 0.5-1.1 [facility] Glomerular filtration rate/1.73 sq M.pre dicted [Volume Rate/Area] in Serum or Plasma Greater Than 60 ABOVE 60 [facility] Alanine aminotransferase [Enzymatic acti vity/volume] in Serum or Plasma by With P-5'-P 19 U/L 10-49 [facility] ital Aspartate aminotransferase [Enzymatic ac tivity/volume] in Serum or Plasma by With P-5'-P 13 U/L 0-33 [facility] pital Alkaline phosphatase [Enzymatic activity/volume] in Serum or Plasma 113 U/L 45-129 [facility] Calcium [Mass/volume] in Serum or Plasma 8.5 mg/dL 8.5-10.1 [facility] Bilirubin.total [Mass/volume] in Serum or Plasma 0.6 mg/dL 0.3-1.2 [facility] Albumin [Mass/volume] in Serum or Plasma by Bromocresol purple (BCP) dye binding method 2.7 g/dL 3.2-4.[address] [facility] Protein [Mass/volume] in Serum or Plasma 5.8 g/dL 5.7-8.2 [facility] ID Date Data Source [id number] 03/01/2019 06:35:00 AM [facility] Name Value Range Interpretation Code Description Data Tashia rce(s) Supporting Document(s) Phosphate [Mass/volume] in Serum or Plasma 4.0 mg/dL 2.4-5.1 [facility] ID Date Data Source [id number] 03/01/2019 06:35:00 AM [facility] Name Value Range Interpretation Code Description Data Tashia rce(s) Supporting Document(s) Magnesium [Mass/volume] in Serum or Plasma 2.1 mg/dL 1.3-2.7 N [facility] ID Date Data Source [id number] 02/28/2019 11:04:00 AM EST [facility] Name: CASSIE JIANG : 1955 Age: 63 MR#: [id number] Admit Date: 02/19/19 Provider: Fallon Lerma NP Room #: 293 Consulting Provider: Cesario Gao MD Dictation Date: 02/05 07/23 ProgressNote Subjective-ROS Date of service Date of service:: 02/28/19 Review of Systems ROS (Free Text/Narrative):: Patient is at high Fowlers in the bed, right leg elevated on pillows, tray table with breakfast in front of her. She appears to be in no pain or distress at this time. She reviewed her entire medical history with me and was very forthright in speaking that she would like to go to a rehabilitation center in [facility] where her family is present. He stated that she has a significant back/neck pain history. She also stated that she feels her twice a day physical therapy here is "going well". She feels that she is making progress every day. General: Reports No Symptoms/Complaints HEENT: Reports No Symptoms Complaints Cardiovascular: Reports No Symptoms/Complaints; Denies Chest Pain and Palpitations Pulmonary: Reports No Symptoms/Complaints; Denies Dyspnea, Cough and Pleuritic Chest Pain Gastrointestinal: Reports No Symptoms/Complaints; Denies nausea, vomiting, abdominal pain, diarrhea,constipation, heartburn and reflux/regurg Genitourinary: Reports No Symptoms/Complaints; Denies Dysuria and Frequency Musculoskeletal: Reports No Symptoms/Complaints Neurological: Reports No Symptoms/Complaints Psych: Reports No Symptoms/Complaints; Denies anxiety and depression Hematological/Lymphatic: Reports No Symptoms/Complaints Allergic/Immunologic: Reports No Symptoms/Complaints Attestation/Length Of Stay: 02/19/19 17:52 Admit to Inpatient, Acute [STATUS] Routine Location: [facility] Primary diagnosis: s/p femur fracture Isolation: Standard precautions Admitting Provider: ELLIE JEFFERSON Status: Inpatient Admission Anticipated Length of stay:: 2-3 Midnights Vital Signs and I O Vitals and I O: Vital Signs last 12 hours Temp Pulse Pulse Resp BP Pulse Ox 02/28/19 07:52 97.9 F 72 16 97/53 99 02/28/19 07:28 78 18 96 02/28/19 07:20 75 18 95 02/28/19 07:18 75 18 95 Intake Output Last 24 Hours 02/26/19 02/27/19 02/28/19 23:59 23:59 23:59 Intake Total 1080 / 1080 600 / 600 700 / 700 Balance 1080 / 1080 600 / 600 700 / 700 Results Results: 02/28/19 05:45 02/28/19 05:45 Laboratory Results Last 24 hours 02/27/19 12:11: POC Glucose 178 H 02/27/19 16:39: POC Glucose 167 H 02/27/19 21:28: POC Glucose 178 H 02/28/19 05:45: WBC 8.5, RBC 2.75 L, Hgb 8.1 L, Hct 26.5 L, MCV 96.4 H, MCH 29.5, MCHC 30.6 L, RDW 16 H, Plt Count 419, MPV 9.7, Immature Gran % (Auto) 0.5, Neut % (Auto) 34.7 L, Lymph % (Auto) 46.5 H, [place] % (Auto) 7.5, Eos % (Auto) 10.2 H, Baso % (Auto) 0.6, Lymph # (Auto) 4.0, Abs Immat Gran (auto) 0.0, Add Manual Diff No, Absolute Neutrophils 3.0, Monocytes # 0.6, Absolute Eosinophils 0.9 H, Absolute Basophils 0.1 02/28/19 05:45: Sodium 142, Potassium 4.6, Chloride 108, Carbon Dioxide 29, Anion Gap 10, BUN 16, Cr eatinine 0.5, GFR Calculation Greater than 60, Glucose 113 H, Calcium 8.8, Phosphorus 4.9, Magnesium 2.1, Total Bilirubin 0.6, AST 13, ALT 19, Alkaline Phosphatase 104, Serum Total Protein 5.8, Albumin 2.6 L Microbiology 02/19/19 16:47 Urine,cath Urine Culture - Final Proteus Mirabilis Exam Orientation: Alert, Oriented x3, Cooperative and No acute distress HEENT: Atraumatic, PERRLA, EOMI and Mucous membr. moist/pink Lungs: normal lung sounds bilaterally; negative for respiratory distress, wheezes, rales, rhonchi, stridor, chest wall tenderness and decreased breath sounds Cardiovascular Exam: regular rate and normal rhythm Abdomen: Normal bowel sounds and Soft; negative for Tenderness Extremities: capillary refill brisk and other (Surgical fixation of right femur, undergoing physical therapy, sensation and movement intact) Skin: Wound (surgical wounds, no drainage noted, no redness) Neurological: Normal speech and Normal tone Psych/Mental Status: normal affect and normal mood Assessment/Plan Impressions/Problems (1) Fracture of distal end of right femur: Code(s): S72.401A - Unspecified fracture of lower end of right femur, initial encounter for closed fracture SNOMED Code(s): 592624993 Permanent Plan: Continue with OT/ PT. continue with pain management and trending labs for anemia postop. Continue to monitor surgical sites for signs symptoms of infection. explore short-term rehabilitation options (2) GERD (gastroesophageal reflux disease): Code(s): K21.9 - Gastro-esophageal reflux disease without esophagitis SNOMED Code(s): 720647434 Permanent Plan: Continue with home medication pantoprazole (3) Chronic constipation: Code(s): K59.09 - Other constipation SNOMED Code(s): 519833195 Permanent Plan: Continue to monitor, bowel regime as ordered (4) Hypothyroid: Code(s): E03.9 - Hypothyroidism, unspecified SNOMED Code(s): 15699755 Permanent Plan: Continue with levothyroxine (5) Type 2 diabetes mellitus: Code(s): E11.9 - Type 2 diabetes mellitus without complications SNOMED Code(s): 96728637 Permanent Plan: Accu-Cheks AC at bedtime with sliding scale coverage as well as Januvia. Consistant carb diet. (6) Hyperlipidemia: Code(s): E78.5 - Hyperlipidemia, unspecified SNOMED Code(s): 18690834 Permanent Plan: Continue home medication pravastatin (7) Fibromyalgia: Code(s): M79.7 - Fibromyalgia SNOMED Code(s): 603763726 Permanent Plan: Gabapentin and Cymbalta (8) Depression: Code(s): F32.9 - Major depressive disorder, single episode, unspecified SNOMED Code(s): 42972477 Permanent Plan: Cymbalta and Lexapro, Rozerem for insomnia (9) Chronic pain: Code(s): G89.29 - Other chronic pain SNOMED Code(s): 68112609 Permanent Plan: Baclofen and Flexeril for back spasms, EpiPen f or neuropathy, oxycodone 1 to 2 tablets every 4 hours for stop pain, Voltaren topical and home dose of prednisone 10 mg daily A P Free Text/Narrative :: Patient is 8 days postop. continue with DVT prophylaxis. Participation in PT OT is progressing. Patient is interested in short-term rehabilitation in [facility] so she can be closer to family. DR Goldman is the attending This patient is a full code Dictated by: <Electronically signed by Fallon Lerma NP> Fallon Lerma NP 02/28/19 1137 Fallon Lerma NP SIGNATURE DA Report Cosigners: <<Signature on File>> Ethan Goldman MD 02/28/19 1643 <Electronically signed by Ethan Goldman MD> Ethan Goldman MD 02/28/19 1643 D: WADE 02/28/19 1104 T: WADE 02/28/19 1104 CC: Name Value Range Interpretation Code Description Data Tashia rce(s) Supporting Document(s) ID Date Data Source [id number] 02/28/2019 05:52:00 AM EST [facility] Name Value Range Interpretation Code Description Data Tashia rce(s) Supporting Document(s) Leukocytes [#/volume] in Blood by Automated count 8.5 10*3/uL 4.45-10 .71 N [facility] Erythrocytes [#/volume] in Blood by Automated count 2.75 10*6/uL 4.20-5.40 Below low normal [facility] Hemoglobin [Moles/volume] in Blood 8.1 g/dL 10.7-15.4 Below low no rmal [facility] Hematocrit [Volume Fraction] of Blood by Automated count 26.5 % 37-47 Below low normal [facility] Erythrocyte mean corpuscular volume [Ent itic volume] in Cord blood by Automated count 96.4 fL 80-96 Above high normal [facility] Erythrocyte mean corpuscular hemoglobin [Entitic mass] by Automated count 29.5 pg 27-31 N [facility] Erythrocyte mean corpuscular hemoglobin concentration [Mass/volume] in Cord blood 30.6 g/dL 33-[address] [facility] Erythrocyte distribution width [Entitic volume] by Automated cou nt 16 % 11-15 Above high normal [facility] Platelets [#/volume] in Blood by Automated count 419 10*3/uL 130-472 N [facility] Platelet mean volume [Entitic volume] in Blood 9.7 fL 9.1-13.1 N [facility] Neutrophils/100 leukocytes in Blood by Automated count 34.7 % 41-77 Below low normal [facility] Neutrophils [#/volume] in Blood by Automated count 3.0 U 1.7-7.6 N [facility] Lymphocytes/100 leukocytes in Blood by Automated count 46.5 % 14-46 Above high normal [facility] Lymphocytes [#/volume] in Blood by Automated count 4.0 U 0.6-4.6 N [facility] Monocytes/100 leukocytes in Blood by Automated count 7.5 % 4-12 N [facility] Monocytes [#/volume] in Blood by Automated count 0.6 U 0.2-1.2 N [facility] Eosinophils/100 leukocytes in Blood by Automated count 10.2 % 0-7 Above high normal [facility] Eosinophils [#/volume] in Blood by Automated count 0.9 U 0.0-0.5 Above high normal [facility] Basophils/100 leukocytes in Blood by Automated count 0.6 % 0.4-1 .3 N [facility] Basophils [#/volume] in Blood by Automated count 0.1 U 0.0-0.2 N [facility] NUCLEATED RED BLOOD CELL 0 % [facility] NUCLEATED RED BLOOD CELL# 0 U [facility] Immature granulocytes [Presence] in Blood by Automated count 0-2 N [facility] Immature granulocytes [#/volume] in Blood by Automated count 0.0 U 0-0.1 N [facility] Manual Differential panel - Blood NO [facility] ID Date Data Source [id number] 02/28/2019 06:56:00 AM EST [facility] Name Value Range Interpretation Code Description Data Tashia rce(s) Supporting Document(s) Urea nitrogen [Mass/volume] in Serum or Plasma 16 mg/dL 9-23 N [facility] Sodium [Moles/volume] in Serum or Plasma 142 mmol/L 132-146 N [facility] Potassium [Moles/volume] in Serum or Plasma 4.6 mmol/L 3.5-5.5 N [facility] Chloride [Moles/volume] in Serum or Plasma 108 mmol/L 99-109 N [facility] Carbon dioxide, total [Moles/volume] in Serum or Plasma 29 mmol/L 20 -31 N [facility] Anion gap in Serum or Plasma 10 mmol/L 8-16 N [facility] Glucose [Mass/volume] in Serum or Plasma 113 mg/dL 74-106 Above high normal [facility] Creatinine 0.5 mg/dL 0.5-1.1 [facility] Glomerular filtration rate/1.73 sq M.pre dicted [Volume Rate/Area] in Serum or Plasma Greater Than 60 ABOVE 60 [facility] Alanine aminotransferase [Enzymatic acti vity/volume] in Serum or Plasma by With P-5'-P 19 U/L 10-49 [facility] ital Aspartate aminotransferase [Enzymatic ac tivity/volume] in Serum or Plasma by With P-5'-P 13 U/L 0-33 [facility] pital Alkaline phosphatase [Enzymatic activity/volume] in Serum or Plasma 104 U/L 45-129 N [facility] Calcium [Mass/volume] in Serum or Plasma 8.8 mg/dL 8.5-10.1 [facility] Bilirubin.total [Mass/volume] in Serum or Plasma 0.6 mg/dL 0.3-1.2 [facility] Albumin [Mass/volume] in Serum or Plasma by Bromocresol purple (BCP) dye binding method 2.6 g/dL 3.2-4.[address] [facility] Protein [Mass/volume] in Serum or Plasma 5.8 g/dL 5.7-8.2 [facility] ID Date Data Source [id number] 02/28/2019 06:56:00 AM EST [facility] Name Value Range Interpretation Code Description Data Tashia rce(s) Supporting Document(s) Phosphate [Mass/volume] in Serum or Plasma 4.9 mg/dL 2.4-5.1 N [facility] ID Date Data Source [id number] 02/28/2019 06:56:00 AM EST [facility] Name Value Range Interpretation Code Description Data Tashia rce(s) Supporting Document(s) Magnesium [Mass/volume] in Serum or Plasma 2.1 mg/dL 1.3-2.7 [facility] Procedure Social History Code Duration Value Status Description Data Source(s ) Smoking 04/07/2020 12:00:00 AM EST Never Smoked Cigarettes com pleted Never Smoked Cigarettes [facility] ([facility] [place]) Smoking 03/12/2020 12:00:00 AM EST Patient has never smoked co mpleted Patient has never smoked [facility] ([facility], ) Smoking 08/08/2019 12:00:00 AM EDT Never Smoker completed Never S moker eCW1 ([facility]) Smoking 08/08/2019 12:00:00 AM EDT Never Smoker completed Never S moker eCW1 ([facility]) Smoking 08/08/2019 12:00:00 AM EDT Never Smoker completed Never S moker eCW1 ([facility]) Smoking 08/08/2019 12:00:00 AM EDT Never Smoker completed Never S moker eCW1 ([facility]) Smoking 08/08/2019 12:00:00 AM EDT Never Smoker completed Never S moker eCW1 ([facility]) Smoking 08/08/2019 12:00:00 AM EDT Never Smoker completed Never S moker eCW1 ([facility]) Smoking 08/08/2019 12:00:00 AM EDT Never Smoker completed Never S moker eCW1 ([facility]) Smoking 08/08/2019 12:00:00 AM EDT Never Smoker completed Never S moker eCW1 ([facility]) Smoking 08/08/2019 12:00:00 AM EDT Never Smoker completed Never S moker eCW1 ([facility]) 04/03/2019 11:02:00 AM EST Never smoker completed Never s moker [facility] Smoking 04/03/2019 11:02:00 AM EST Never smoker completed Never s moker [facility] 04/03/2019 11:02:00 AM EST Never smoker completed Never [facility] Smoking 04/03/2019 11:02:00 AM EST Never smoker completed Never [facility] 04/03/2019 11:02:00 AM EST Never smoker completed Never [facility] Smoking 04/03/2019 11:02:00 AM EST Never smoker completed Never [facility] 03/06/2019 07:54:34 AM EST Never smoker completed Never [facility] 03/06/2019 07:54:34 AM EST Never smoker completed Never [facility] 03/06/2019 07:54:34 AM EST Never smoker completed Never [facility] 03/06/2019 07:54:34 AM EST Never smoker completed Never [facility] 03/06/2019 07:54:34 AM EST Never smoker completed Never [facility] 03/06/2019 07:54:34 AM EST Never smoker completed Never [facility] Smoking 03/06/2019 07:54:00 AM EST Never smoker completed Never [facility] Smoking 03/06/2019 07:54:00 AM EST Never smoker completed Never [facility] Smoking 03/06/2019 07:54:00 AM EST Never smoker completed Never [facility] Vital Signs ID Date Data Source UNK Name Value Range Interpretation Code Description Data Source(s) Systolic blood pressure 134 mm[Hg] 134 mm[Hg] A THENA ([facility]) Diastolic blood pressure 85 mm[Hg] 85 mm[Hg] MARILIA ([facility]) Body surface area Derived from formula 2.12 m2 2.12 m2 MEDENT ([facility], ) Body weight 103.874 kg 103.874 kg [facility] ([facility], ) [place] body weight 130 [lb_av] 130 [lb_av] MEDEN T ([facility], ) Body mass index (BMI) [Ratio] 37.0 kg/m2 37.0 k g/m2 [facility] ([facility], ) Body weight 229.00 [lb_av] 229.00 [lb_av] MEDEN T ([facility], ) Body height 66 [in_i] 66 [in_i] [facility] 5'6" Oxygen saturation in Arterial blood by Pulse oximetry 98 % 98 % [facility] ([facility], ) Room Air Heart rate 88 /min 88 /min [facility] ([facility]) Diastolic blood pressure 76 mm[Hg] 76 mm[Hg] MEDENT ([facility], ) Systolic blood pressure 126 mm[Hg] 126 mm[Hg] M EDENT ([facility], ) [place] body weight 130 [lb_av] 130 [lb_av] MEDEN T ([facility], ) Body height 66 [in_i] 66 [in_i] [facility] ([facility], ) 5'6" Systolic blood pressure 139 mm[Hg] 139 mm[Hg] A THENA ([facility]) Diastolic blood pressure 90 mm[Hg] 90 mm[Hg] MARILIA ([facility]) Systolic blood pressure 139 mm[Hg] 139 mm[Hg] A THENA ([facility]) Diastolic blood pressure 90 mm[Hg] 90 mm[Hg] MARILIA ([facility]) Systolic blood pressure 139 mm[Hg] 139 mm[Hg] A THENA ([facility]) Diastolic blood pressure 90 mm[Hg] 90 mm[Hg] MARILIA ([facility]) Systolic blood pressure 139 mm[Hg] 139 mm[Hg] A THENA ([facility]) Diastolic blood pressure 90 mm[Hg] 90 mm[Hg] MARILIA ([facility]) Systolic blood pressure 139 mm[Hg] 139 mm[Hg] A THENA ([facility]) Diastolic blood pressure 90 mm[Hg] 90 mm[Hg] MARILIA ([facility]) Systolic blood pressure 139 mm[Hg] 139 mm[Hg] A THENA ([facility]) Diastolic blood pressure 90 mm[Hg] 90 mm[Hg] MARILIA ([facility]) Systolic blood pressure 139 mm[Hg] 139 mm[Hg] A THENA ([facility]) Diastolic blood pressure 90 mm[Hg] 90 mm[Hg] MARILIA ([facility]) Systolic blood pressure 139 mm[Hg] 139 mm[Hg] A THENA ([facility]) Diastolic blood pressure 90 mm[Hg] 90 mm[Hg] MARILIA ([facility]) Systolic blood pressure 139 mm[Hg] 139 mm[Hg] A THENA ([facility]) Diastolic blood pressure 90 mm[Hg] 90 mm[Hg] MARILIA ([facility]) Systolic blood pressure 139 mm[Hg] 139 mm[Hg] A THENA ([facility]) Diastolic blood pressure 90 mm[Hg] 90 mm[Hg] MARILIA ([facility]) Systolic blood pressure 139 mm[Hg] 139 mm[Hg] A THENA ([facility]) Diastolic blood pressure 90 mm[Hg] 90 mm[Hg] MARILIA ([facility]) Systolic blood pressure 139 mm[Hg] 139 mm[Hg] A THENA ([facility]) Diastolic blood pressure 90 mm[Hg] 90 mm[Hg] MARILIA ([facility]) Diastolic blood pressure 74 mm[Hg] 74 mm[Hg] eCW1 ([facility]) Systolic blood pressure 124 mm[Hg] 124 mm[Hg] e CW1 ([facility]) Body mass index (BMI) [Ratio] 35.67 kg/m2 35.67 kg/m2 [facility] ([facility]) Body height 66 [in_i] 66 [in_i] W1 ([facility]) Body weight 221 [lb_av] 221 [lb_av] W1 ([facility]) Body surface area Derived from formula 2.07 m2 2.07 m2 MEDENT ([facility], ) Body weight 98.885 kg 98.885 kg [facility] ([facility], ) [place] body weight 130 [lb_av] 130 [lb_av] MEDEN T ([facility], ) Body mass index (BMI) [Ratio] 35.2 kg/m2 35.2 k g/m2 [facility] ([facility], ) Body weight 218.00 [lb_av] 218.00 [lb_av] MEDEN T ([facility], ) Body height 66 [in_i] 66 [in_i] MEDENT ([facility], ) 5'6" Body temperature 97.1 [degF] 97.1 [degF] [facility] Oxygen saturation in Arterial blood by Pulse oximetry 97 % 97 % [facility]) Heart rate 89 /min 89 /min [facility] ([facility], ) Diastolic blood pressure 82 mm[Hg] 82 mm[Hg] MEDENT ([facility]) Systolic blood pressure 124 mm[Hg] 124 mm[Hg] M EDENT ([facility]) Body mass index (BMI) [Ratio] 34.70 kg/m2 34.70 kg/m2 [facility] ([facility]) Body height 66 [in_us] 66 [in_us] eCW1 ([facility]) Body weight Measured 215 [lb_av] 215 [lb_av] eC W1 ([facility]) Diastolic blood pressure 72 mm[Hg] 72 mm[Hg] eCW1 ([facility]) Systolic blood pressure 108 mm[Hg] 108 mm[Hg] e CW1 ([facility]) Body temperature 97.1 [degF] 97.1 [degF] W1 ( [facility]) Respiratory rate 18 /min 18 /min eCW1 ([facility]) Heart rate 94 /min 94 /min eCW1 ([facility]) Body mass index (BMI) [Ratio] 29.99 kg/m2 29.99 kg/m2 eCW1 ([facility]) Body height 66 [in_us] 66 [in_us] eCW1 ([facility]) Body weight Measured [lb_av] eCW1 ([facility]) Diastolic blood pressure 80 mm[Hg] 80 mm[Hg] eCW1 ([facility]) Systolic blood pressure 122 mm[Hg] 122 mm[Hg] e CW1 ([facility]) Body temperature 98.5 [degF] 98.5 [degF] eCW1 ( [facility]) Respiratory rate 18 /min 18 /min eCW1 ([facility]) Heart rate 81 /min 81 /min eCW1 ([facility]) Body mass index (BMI) [Ratio] 35.51 kg/m2 35.51 kg/m2 eCW1 ([facility]) Body height 66 [in_us] 66 [in_us] eCW1 ([facility]) Body weight Measured 220 [lb_av] 220 [lb_av] eC W1 ([facility]) Patient Treatment Plan of Care Planned Activity Planned Date Details Description Data Source (s) Cyclobenzaprine hydrochloride 10 MG Oral Tablet 02/07/2020 12:00:00 AM EST eCW1 ([facility]) Cyclobenzaprine hydrochloride 10 MG Oral Tablet 02/07/2020 12:00:00 AM EST eCW1 ([facility]) Cyclobenzaprine hydrochloride 5 MG Oral Tablet 02/07/2020 12:00:00 AM EST eCW1 ([facility]) Cyclobenzaprine hydrochloride 10 MG Oral Tablet 02/07/2020 12:00:00 AM EST eCW1 ([facility]) Amitriptyline Hydrochloride 25 MG Oral Tablet 12/06/2019 12:00:00 A M EDT eCW1 ([facility]) Amitriptyline Hydrochloride 25 MG Oral Tablet 12/06/2019 12:00:00 A M EDT eCW1 ([facility]) Amitriptyline Hydrochloride 25 MG Oral Tablet 12/06/2019 12:00:00 A M EDT eCW1 ([facility]) Amitriptyline Hydrochloride 25 MG Oral Tablet 12/06/2019 12:00:00 A M EDT eCW1 ([facility] [facility]) Amitriptyline Hydrochloride 25 MG Oral Tablet 12/06/2019 12:00:00 A M EDT eCW1 ([facility]) Amitriptyline Hydrochloride 25 MG Oral Tablet 12/06/2019 12:00:00 A M EDT eCW1 ([facility]) Doxycycline Monohydrate 100 MG 03/23/2019 12:00:00 AM EST eCW1 ([facility]) tramadol hydrochloride 50 MG Oral Tablet [facility] ([facility]) Prednisone 20 MG Oral Tablet [facility] ([facility]) Acetaminophen 325 MG / Oxycodone Hydrochloride 5 MG Oral Tablet [place] ([facility]) Oxycodone Hydrochloride 5 MG Oral Tablet [place] ([facility]) tramadol hydrochloride 50 MG Oral Tablet [place] ([facility]) Prednisone 20 MG Oral Tablet [place] ([facility]) Acetaminophen 325 MG / Oxycodone Hydrochloride 5 MG Oral Tablet [place] ([facility]) Oxycodone Hydrochloride 5 MG Oral Tablet [place] ([facility]) Methylprednisolone 4 MG Oral Tablet [facility] ([facility]) Methylprednisolone 2 MG Oral Tablet [Medrol] [facility] ([facility]) Estradiol 0.1 MG/ML Vaginal Cream [facility] ([facility]) 0.3 ML Enoxaparin sodium 100 MG/ML Prefilled Syringe [facility] ([facility]) Doxycycline Monohydrate 100 MG Oral Capsule [facility] ([facility]) Ciprofloxacin 250 MG Oral Tablet [facility] ([facility]) cefdinir 300 MG Oral Capsule [place] ([facility]) Methylprednisolone 4 MG Oral Tablet [facility] ([facility]) Methylprednisolone 2 MG Oral Tablet [Medrol] [facility] ([facility]) glimepiride 2 MG Oral Tablet [place] ([facility]) glimepiride 1 MG Oral Tablet [place] ([facility]) Estradiol 0.1 MG/ML Vaginal Cream [facility] ([facility]) 0.3 ML Enoxaparin sodium 100 MG/ML Prefilled Syringe [facility] ([facility]) Doxycycline Monohydrate 100 MG Oral Capsule [facility] ([facility]) Ciprofloxacin 250 MG Oral Tablet [facility] ([facility]) cefdinir 300 MG Oral Capsule [place] ([facility]) Amoxicillin 500 MG / Clavulanate 125 MG Oral Tablet [facility] ([facility]) Alprazolam 1 MG Oral Tablet [facility] ([facility]) Amoxicillin 500 MG / Clavulanate 125 MG Oral Tablet [place] ([facility]) Alprazolam 1 MG Oral Tablet [place] ([facility]) tramadol hydrochloride 50 MG Oral Tablet [place] ([facility]) tramadol hydrochloride 50 MG Oral Tablet [place] ([facility]) Prednisone 20 MG Oral Tablet [facility] ([facility]) Acetaminophen 325 MG / Oxycodone Hydrochloride 5 MG Oral Tablet [facility] ([facility]) Oxycodone Hydrochloride 5 MG Oral Tablet [facility] ([facility]) Methylprednisolone 4 MG Oral Tablet [facility] ([facility]) Methylprednisolone 2 MG Oral Tablet [Medrol] [facility] ([facility]) Estradiol 0.1 MG/ML Vaginal Cream [facility] ([facility]) 0.3 ML Enoxaparin sodium 100 MG/ML Prefilled Syringe [facility] ([facility]) Doxycycline Monohydrate 100 MG Oral Capsule [facility] ([facility]) Ciprofloxacin 250 MG Oral Tablet [facility] ([facility]) cefdinir 300 MG Oral Capsule [place] ([facility]) Amoxicillin 500 MG / Clavulanate 125 MG Oral Tablet [place] ([facility]) Alprazolam 1 MG Oral Tablet [place] ([facility]) tramadol hydrochloride 50 MG Oral Tablet [place] ([facility]) Prednisone 20 MG Oral Tablet [place] ([facility]) Acetaminophen 325 MG / Oxycodone Hydrochloride 5 MG Oral Tablet [place] ([facility]) Oxycodone Hydrochloride 5 MG Oral Tablet [place] ([facility]) Methylprednisolone 4 MG Oral Tablet [facility] ([facility]) Methylprednisolone 2 MG Oral Tablet [Medrol] [facility] ([facility]) Estradiol 0.1 MG/ML Vaginal Cream [facility] ([facility]) 0.3 ML Enoxaparin sodium 100 MG/ML Prefilled Syringe [facility] ([facility]) Doxycycline Monohydrate 100 MG Oral Capsule [facility] ([facility]) Ciprofloxacin 250 MG Oral Tablet [facility] ([facility]) cefdinir 300 MG Oral Capsule [place] ([facility]) Amoxicillin 500 MG / Clavulanate 125 MG Oral Tablet [facility] ([facility]) Alprazolam 1 MG Oral Tablet [facility] ([facility]) Prednisone 20 MG Oral Tablet [place] ([facility]) Acetaminophen 325 MG / Oxycodone Hydrochloride 5 MG Oral Tablet [place] ([facility]) Oxycodone Hydrochloride 5 MG Oral Tablet [place] ([facility]) Methylprednisolone 4 MG Oral Tablet [facility] ([facility]) Methylprednisolone 2 MG Oral Tablet [Medrol] [place] ([facility]) Estradiol 0.1 MG/ML Vaginal Cream [facility] ([facility]) 0.3 ML Enoxaparin sodium 100 MG/ML Prefilled Syringe [facility] ([facility]) Doxycycline Monohydrate 100 MG Oral Capsule [place] ([facility]) Ciprofloxacin 250 MG Oral Tablet [facility] ([facility]) cefdinir 300 MG Oral Capsule [facility] ([facility]) Amoxicillin 500 MG / Clavulanate 125 MG Oral Tablet [facility] ([facility]) Alprazolam 1 MG Oral Tablet [facility] ([facility])
[2020-04-29] MEDS ORDERED: PANTOPRAZOLE 40MG VIAL (C9113 PER 1) IV SCH (05:30)
[2020-04-29] MEDS ORDERED: NS 1,000 ML IV ONE (05:30)
[2020-04-29] MEDS ORDERED: ONDANSETRON 4MG/2ML VIAL IV ONE ×2 (05:45→07:15)
[2020-04-29 05:53] LABS: BASO # 0.1 10^3/uL (0.0-0.2); BASO % 0.6 % (0.0-1.0); EOS # 0.1 10^3/uL (0.0-0.5); EOS % 1.1 % (0.0-3.0); HEMATOCRIT 24.9 % (36.0-47.0); HEMOGLOBIN 7.7 g/dl (12.0-15.5); LYMPH # 3.4 10^3/uL (1.5-5.0); LYMPH % 37.6 % (24.0-44.0); MEAN CORPUSCULAR HEMOGLOBIN 27.8 pg (27.0-33.0); MEAN CORPUSCULAR HGB CONC 30.9 g/dl (32.0-36.5); MEAN CORPUSCULAR VOLUME 89.9 fl (80.0-96.0); MONO # 0.4 10^3/uL (0.0-0.8); MONO % 4.7 % (2.0-8.0); NEUTROPHILS # 5.1 10^3/uL (1.5-8.5); NEUTROPHILS % 55.6 % (36.0-66.0); PLATELET COUNT, AUTOMATED 317 10^3/uL (150-450); RED BLOOD COUNT 2.77 10^6/uL (4.00-5.40); WHITE BLOOD COUNT 9.1 10^3/uL (4.0-10.0)
[2020-04-29] MEDS ORDERED: LIDOCAINE 2% MDV 20ML VIAL XX ONE (06:00)
[2020-04-29] MEDS ORDERED: OXYMETAZOLINE 0.05% NASAL SPRAY (AFRIN) ONE (06:00)
[2020-04-29 06:02] LABS: INR 1.04; PROTHROMBIN TIME 13.8 SECONDS (12.5-14.3)
[2020-04-29] MEDS: PANTOPRAZOLE SODIUM 40 MG in D5W 50 ML IV SCH ×2 (06:13→11:00)
[2020-04-29 06:20] LABS: CK-MB VALUE MASS 2.3 NG/ML (<3.6); CPK CREATINE PHOSPHOKINASE 81 U/L (26-192); LIPASE 54 U/L (73-393); MB/CK RELATIVE INDEX 2.84 (< OR =4); TROPONIN I < 0.02 NG/ML (< 0.10)
[2020-04-29 06:28] LABS: ALBUMIN 2.9 GM/DL (3.2-5.2); ALT/SGPT 15 U/L (12-78); BILIRUBIN,TOTAL 0.7 MG/DL (0.2-1.0); BLOOD UREA NITROGEN 50 MG/DL (7-18); CALCIUM LEVEL 8.5 MG/DL (8.8-10.2); CARBON DIOXIDE LEVEL 25 MEQ/L (21-32); CHLORIDE LEVEL 101 MEQ/L (98-107); GLOMERULAR FILTRATION RATE > 60.0 (>45); GLUCOSE, FASTING 272 MG/DL (70-100); POTASSIUM SERUM 4.3 MEQ/L (3.5-5.1); SODIUM LEVEL 139 MEQ/L (136-145); TOTAL PROTEIN 6.2 GM/DL (6.4-8.2)
--- OUTSIDE RECORDS SUMMARY | 2020-04-29 06:30 | CCD ---
Author Author [facility] Organization [facility] Address Unknown Phone Unavailable Care Team Providers Care Armored Car Messenger Name Role Phone Sarah Chapa MD Unavailable [...] Aburto MD Unavailable Unavailable Jumalon, M Mar DIRECTOR WRITING Unavailable Unavailable Jumalon, M Mar DIRECTOR WRITING Unavailable Unavailable Jumalon, M Mar DIRECTOR WRITING Unavailable Unavailable Jumalon, M Mar DIRECTOR WRITING Unavailable Unavailable Jumalon, M Mar DIRECTOR WRITING Unavailable Unavailable Jumalon, M Mar DIRECTOR WRITING Unavailable Unavailable Jumalon, M Mar DIRECTOR WRITING Unavailable Unavailable Jumalon, M Mar DIRECTOR WRITING Unavailable Unavailable Jumalon, M Mar DIRECTOR WRITING Unavailable Unavailable Jumalon, M Mar DIRECTOR WRITING Unavailable Unavailable Jumalon, M Mar DIRECTOR WRITING Unavailable Unavailable Jumalon, M Mar DIRECTOR WRITING Unavailable Unavailable Jumalon, M Mar DIRECTOR WRITING Unavailable Unavailable Jumalon, M Mar DIRECTOR WRITING Unavailable Unavailable Jumalon, M Mar DIRECTOR WRITING Unavailable Unavailable Jumalon, M Mar DIRECTOR WRITING Unavailable Unavailable Jumalon, M Mar DIRECTOR WRITING Unavailable Unavailable Jumalon, M Mar DIRECTOR WRITING Unavailable Unavailable Jumalon, M Mar DIRECTOR WRITING Unavailable Unavailable Jumalon, M Mar DIRECTOR WRITING Unavailable Unavailable Jumalon, M Mar DIRECTOR WRITING Unavailable Unavailable Jumalon, M Mar DIRECTOR WRITING Unavailable Unavailable Jumalon, M Mar DIRECTOR WRITING Unavailable Unavailable Jumalon, M Mar DIRECTOR WRITING Unavailable Unavailable Jumalon, M Mar DIRECTOR WRITING Unavailable Unavailable Jumalon, M Mar DIRECTOR WRITING Unavailable Unavailable Jumalon, M Mar DIRECTOR WRITING Unavailable Unavailable Jumalon, M Mar DIRECTOR WRITING Unavailable Unavailable Angel Gao MD Unavailable Unavailable [...] Unavailable Unavailable SethJaime nogueira MD Unavailable Unavailable SethJaime nogueira MD Unavailable Unavailable Jaime Ann MD Unavailable Unavailable SethJaime nogueira MD Unavailable Unavailable Jaime Ann MD Unavailable Unavailable Jaime Ann MD Unavailable Unavailable SethJaime nogueira MD Unavailable Unavailable SethJaime nogueira MD Unavailable Unavailable Seth, E Kimani MD [...] Ann MD Unavailable Unavailable Ronald, K Eliane TELECOM SPECIALIST Unavailable Unavailable Ronald, K Eliane TELECOM SPECIALIST Unavailable Unavailable Ronald, K Eliane TELECOM SPECIALIST Unavailable Unavailable Ronald, K Eliane TELECOM SPECIALIST Unavailable Unavailable Ronald, K Eliane TELECOM SPECIALIST Unavailable Unavailable Ronald, K Eliane TELECOM SPECIALIST Unavailable Unavailable Ronald, K Eliane TELECOM SPECIALIST Unavailable Unavailable Ronald, K Eliane TELECOM SPECIALIST Unavailable Unavailable Ronald, K Eliane TELECOM SPECIALIST Unavailable Unavailable Ronald, K Eliane TELECOM SPECIALIST Unavailable Unavailable Ronald, K Eliane TELECOM SPECIALIST Unavailable Unavailable Ronald, K Eliane TELECOM SPECIALIST Unavailable Unavailable Ronald, K Eliane TELECOM SPECIALIST Unavailable Unavailable Ronald, K Eliane TELECOM SPECIALIST Unavailable Unavailable Ronald, K Eliane TELECOM SPECIALIST Unavailable Unavailable Ronald, K Eliane TELECOM SPECIALIST Unavailable Unavailable Ronald, K Eliane TELECOM SPECIALIST Unavailable Unavailable Ronald, K Eliane TELECOM SPECIALIST Unavailable Unavailable Ronald, K Eliane TELECOM SPECIALIST Unavailable Unavailable Ronald, K Eliane TELECOM SPECIALIST Unavailable Unavailable Ronald, K Eliane TELECOM SPECIALIST Unavailable Unavailable Ronald, K Eliane TELECOM SPECIALIST Unavailable Unavailable Ronald, K Eliane TELECOM SPECIALIST Unavailable Unavailable Ronald, K Eliane TELECOM SPECIALIST Unavailable Unavailable Ronald, K Eliane TELECOM SPECIALIST Unavailable Unavailable Ronald, K Eliane TELECOM SPECIALIST Unavailable Unavailable Ronald, K Eliane TELECOM SPECIALIST Unavailable Unavailable Ronald, K Eliane TELECOM SPECIALIST Unavailable Unavailable Ronald, K Eliane TELECOM SPECIALIST Unavailable Unavailable Ronald, K Eliane TELECOM SPECIALIST Unavailable Unavailable Ronald, K Eliane TELECOM SPECIALIST Unavailable Unavailable Ronald, K Eliane TELECOM SPECIALIST Unavailable Unavailable Ronald, K Eliane TELECOM SPECIALIST Unavailable Unavailable Ronald, K Eliane TELECOM SPECIALIST Unavailable Unavailable [facility] Unavailable Unavailable Forest, Temitope Amira Unavailable Unavailable Forest, Tmeitope Amira Unavailable Unavailable Forest, Temitope Amira Unavailable Unavailable Forest, Temitope Amira Unavailable Unavailable Forest, Temitope Amira Unavailable Unavailable Forest, Temitope Amira Unavailable Unavailable Foerst, Temitope Amira Unavailable Unavailable Forest, Temitope Amira Unavailable Unavailable Forest, Temitope Amira Unavailable Unavailable Forest, Temitope Amira Unavailable Unavailable Forest, Temitope Amira Unavailable Unavailable Forest, Temitope Amira Unavailable Unavailable Forest, Temitope Amira Unavailable Unavailable Forest, Temitope Maira Unavailable Unavailable Forest, Temitope Amira Unavailable Unavailable [...] Unavailable Unavailable Forest, Temitope Amira Unavailable Unavailable BolJean-Pierre dickerson MD Unavailable Unavailable [...] Unavailable BolJean-Pierre dickersonOleg MD Unavailable Unavailable BolJean-Pierre dickersonOleg MD Unavailable Unavailable Bolla S Oleg MD Unavailable Unavailable Boljayla S Oleg MD Unavailable Unavailable BolJean-Pierre dickerson MD Unavailable Unavailable BolJean-Pierre dickersonOleg MD Unavailable Unavailable BolJean-Pierre dickersonOleg MD Unavailable Unavailable Bolla S Oleg MD Unavailable Unavailable BolJean-Pierre dickersonOleg MD Unavailable Unavailable Bolla S Oleg MD Unavailable Unavailable BolJean-Pierre dickersonOleg MD Unavailable Unavailable BollaJean-PierreOleg MD Unavailable Unavailable BollaJean-PierreOleg MD Unavailable Unavailable Bolla, S Oleg MD [...] is protected by Article 27-F of the [facility] Public Health law. If you continue you may have access to information: Regarding HIV / AIDS; Provided by facilities licensed or operated by the [facility] Office of Mental Health; or Provided by the [facility] Office for People With Developmental Disabilities. If such information is present, then the following [facility] mandated warning applies: This information has [...] law may result in a fine or retirement sentence or both. A general authorization for the release of medical or other information is NOT sufficient authorization for further disc losure. Allergies and Adverse Reactions Type Description Substance Reaction Status Data Source(s ) Drug allergy Zocor 10 Drug allergy Anaphylaxis Active eCW1 ([facility]) puneet sprinkles puneet sprinkles puneet sprinkles head ache A ctive eCW1 ([facility]) tequin tequin tequin pruritis Active eCW1 ([facility]) Drug allergy gatifloxacin gatifloxacin Ery[facility]ma [facility] Drug allergy rofecoxib rofecoxib Urticaria [facility] Drug allergy simvastatin simvastatin Anaphylaxis [facility] Drug allergy theophylline theophylline MASSIVE HEAD PAIN [facility] puneet sprinkles puneet sprinkles puneet sprinkles head ache A ctive eCW1 ([facility]) tequin tequin tequin pruritis Active eCW1 ([facility]) tequin tequin tequin pruritis Active eCW1 ([facility]) puneet sprinkles puneet sprinkles puneet sprinkles head ache A ctive eCW1 ([facility]) Crestor Crestor Rosuvastatin calcium 5 MG Oral Tablet [Crestor] myalgia Active eCW1 ([facility]) Family History Family Member Name Family Member Gender Family Member Status Date o f Status Description Data Source(s) Unknown Unknown Problem MEDENT ([facility], ) sister age 48 and another age 59 alive Encounters Encounter Providers Location Date Indications Data Source(s ) Mar Smith TELECOM SPECIALIST: [id number], [place] [address], Ph. Attender: Mar Smith [facility] - [facility] 04/15/2020 12:00:00 AM EST ATHE NA ([facility]) Outpatient Attender: Monica Bal MD 04/07/2020 09:05 :00 PM EST [employer] [facility] Outpatient Attender: Monica Bal MD [place]/ Steffen Martin ology 04/07/2020 12:15:00 PM EST MEDENT ([facility]) Oleg Ling MD: [address], [place] [address], Ph. Attender: Oleg Ling MD [place] - [facility] 03/31/2020 12:00:00 AM EST MARILIA ([facility]) Oleg Ling MD: [address], [place] [address], Ph. Attender: Oleg Ling MD [facility] 03/31/2020 12:00:00 AM EST MARILIA ([facility]) OFFICE OUTPATIENT VISIT 15 MINUTES Attender: Bren RODRIGES [facility] 03/27/2020 12:45:00 PM EST MEDENT ([facility]) Oleg Ling MD: [address], [place] [address], Ph. [phone] Attender: Oleg Ling MD [facility] 03/26/2020 12:00:00 AM EST MARILIA ([facility]) Oleg Ling MD: [address], [place] [address], Ph. [phone] Attender: Oleg Ling MD [facility] 03/26/2020 12:00:00 AM EST MARILIA ([facility]) Oleg Ling MD: [address], [place] [address], Ph. [phone] Attender: Oleg Ling MD [place] - [facility] 03/26/2020 12:00:00 AM EST MARILIA ([facility]) Mar Smith, TELECOM SPECIALIST: [address], [place] [address], Ph. Attender: Mar Smith [facility] - [facility] 03/18/2020 12:00:00 AM EST ATHE NA ([facility]) Mar Smith, TELECOM SPECIALIST: [address], [facility] [place] [address], Ph. Attender: Mar Smith [facility] - [facility] 03/18/2020 12:00:00 AM EST ATHE NA ([facility]) Mar Smith, TELECOM SPECIALIST: [address], [place] [address], Ph. Attender: Mar Smith [facility] - [facility] 03/18/2020 12:00:00 AM EST ATHE NA ([facility]) Mar Smith, TELECOM SPECIALIST: [address], [place] [address], Ph. Attender: Mar Smith [facility] - [facility] 03/18/2020 12:00:00 AM EST ATHE NA ([facility]) [place] [address] [facility] [address] 03/14/2020 12:00:00 AM EST eCW1 ([facility]) Unknown [address] [facility] [address] 03/13/2020 12:00:00 AM EST eCW1 ([facility]) Outpatient Attender: Andrea Sterling/Riri/Mil/Joe ndl 03/12/2020 09:00:00 AM EST MEDREMY ([facility]) Mar Smith, TELECOM SPECIALIST: [address], [place] [address], Ph. Attender: Mar Smith [facility] 02/14/2020 12:00:00 AM EST ATHE NA ([facility]) Mar Smith, TELECOM SPECIALIST: [address], [place] [address], Ph. Attender: Mar Smith [facility] 02/14/2020 12:00:00 AM EST ATHE NA ([facility]) Mar Smith, TELECOM SPECIALIST: [address], [place] [address], Ph. Attender: Mar Smith [facility] 02/14/2020 12:00:00 AM EST ATHE NA ([facility]) Mar Smith, TELECOM SPECIALIST: [address], [place] [address], Ph. Attender: Mar Smith [facility] 02/14/2020 12:00:00 AM EST ATHE NA ([facility]) Mar Smith, TELECOM SPECIALIST: [address], [place] [address], Ph. Attender: Mar Smith [facility] 02/14/2020 12:00:00 AM EST ATHE NA ([facility]) Unknown [address] [facility] [address] 02/13/2020 12:00:00 AM EST [facility]CW1 [facility] [place] [address] [facility] [address] 02/06/2020 12:00:00 AM EST eCW1 ([facility]) Outpatient Attender: Amira Garg 01/10/2020 11:00:[address] [facility] [employer] Outpatient Attender: Amira Garg [place]/ [facility] 12:30:00 PM EST MEDENT ([facility]) Preadmit Attender: Cesario Gao MD 01/03/2020 12:00:00 AM EDT S/P R FEMUR FX [facility] S/P R FEMUR FX Outpatient Attender: Monica Bal MD 12/11/2019 11:00 :00 PM EDT Replaced By [facility] Unknown [address] [facility] [address] 12/06/2019 12:00:00 AM EDT eCW1 ([facility]) Unknown [address] [facility] [address] 12/05/2019 12:00:00 AM EDT eCW1 ([facility]) Oleg Ling MD: [address], [place] [address], Ph. Attender: Oleg Ling MD [place] - [facility] 12/03/2019 12:00:00 AM EDT MARILIA ([facility]) Oleg Ling MD: [address], [place] [address], Ph. Attender: Oleg CHAIREZ - [facility] 12/03/2019 12:00:00 AM EDT MARILIA ([facility]) Oleg Ling MD: [address], [place] [address], Ph. Attender: Oleg Ling MD [place] - [facility] 12/03/2019 12:00:00 AM EDT MARILIA ([facility]) Oleg Ling MD: [address], [address], [place] [address], Ph. Attender: Oleg Ling MD [place] - [facility] 12/03/2019 12:00:00 AM EDT MARILIA ([facility]) Oleg Ling MD: [address], [address], [place] [address], Ph. Attender: Oleg Ling MD [place] - [facility] 12/03/2019 12:00:00 AM EDT MARILIA ([facility]) Oleg Ling MD: [address], [address], [place] [address], Ph. Attender: Oleg CHAIREZ - [facility] 12/03/2019 12:00:00 AM EDT MARILIA ([facility]) Oleg Ling MD: [address], [address], [place] [address], Ph. [phone] Attender: Oleg CHAIREZ - [facility] 11/28/2019 12:00:00 AM EDT MARILIA ([facility]) Oleg Ling MD: [address], [address], [place] [address], Ph. [phone] Attender: Oleg CHAIREZ - [facility] 11/28/2019 12:00:00 AM EDT MARILIA ([facility]) Oleg Ling MD: [address], [address], [place] [address], Ph. [phone] Attender: Oleg Ling MD [place] - [facility] 11/28/2019 12:00:00 AM EDT MARILIA ([facility]) Oleg Ling MD: [address], [address], [place] [address], Ph. [phone] Attender: Oleg Ling MD [place] - [facility] 11/28/2019 12:00:00 AM EDT MARILIA ([facility]) Oleg Ling MD: [address], [address], [place] [address], Ph. [phone] Attender: Oleg CHAIREZ - [facility] 11/28/2019 12:00:00 AM EDT MARILIA ([facility]) Oleg Ling MD: [address], [address], [place] [address], Ph. [phone] Attender: Oleg CHAIREZ - [facility] 11/28/2019 12:00:00 AM EDT MARILIA ([facility]) Oleg Ling MD: [address], [address], [place] [address], Ph. [phone] Attender: Oleg Ling MD [place] - [facility] 11/28/2019 12:00:00 AM EDT MARILIA ([facility]) Oleg Ling MD: [address], [address], [place] [address], Ph. [phone] Attender: Oleg Ling MD [place] - [facility] 11/23/2019 12:00:00 AM EDT MARILIA ([facility]) Oleg Ling MD: [address], [address], [place] [address], Ph. [phone] Attender: Oleg CHAIREZ - [facility] 11/23/2019 12:00:00 AM EDT MARILIA ([facility]) Oleg Ling MD: [address], [address], [place] [address], Ph. [phone] Attender: Oleg Ling MD [place] - [facility] - [facility] 11/23/2019 12:00:00 AM EDT MARILIA ([facility]) Oleg Ling MD: [address], [address], [place] [address], Ph. [phone] Attender: Oleg Ling MD [place] - [facility] 11/23/2019 12:00:00 AM EDT MARILIA ([facility]) Oleg Ling MD: [address], [address], [place] [address], Ph. [phone] Attender: Oleg Ling MD [place] - [facility] 11/23/2019 12:00:00 AM EDT MARILIA ([facility]) Oleg Ling MD: [address], [address], [place] [address], Ph. [phone] Attender: Oleg Ling MD [place] - [facility] - [facility] 11/23/2019 12:00:00 AM EDT MARILIA ([facility]) Oleg Ling MD: [address], [address], [place] [address], Ph. [phone] Attender: Oleg Ling MD [place] - [facility] 11/23/2019 12:00:00 AM EDT MARILIA ([facility]) Oleg Ling MD: [address], [address], [place] [address], Ph. [phone] Attender: Oleg Ling MD [place] - [facility] 11/23/2019 12:00:00 AM EDT MARILIA ([facility]) Mar Smith, TELECOM SPECIALIST: [address], [address], [place] [address], Ph. Attender: Mar Smith [facility] - [facility] 11/22/2019 12:00:00 AM EDT ATHE NA ([facility]) Mar Smith, TELECOM SPECIALIST: [address], [address], [place] [address], Ph. Attender: Mar Smith [facility] - [facility] 11/22/2019 12:00:00 AM EDT ATHE NA ([facility]) Mar Smith, TELECOM SPECIALIST: [address], [place] [address], Ph. Attender: Mar Smith [facility] 11/22/2019 12:00:00 AM EDT ATHE NA ([facility]) Mar Smith, TELECOM SPECIALIST: [address], [address], [place] [address], Ph. Attender: Mar Smith [facility] - [facility] 11/22/2019 12:00:00 AM EDT ATHE NA ([facility]) Mar Smiht, TELECOM SPECIALIST: [address], [address], [place] [address], Ph. Attender: Mar Smith [facility] - [facility] 11/22/2019 12:00:00 AM EDT ATHE NA ([facility]) Mar Smith, TELECOM SPECIALIST: [address], [address], [place] [address], Ph. Attender: Mar Smith [facility] - [facility] 11/22/2019 12:00:00 AM EDT ATHE NA ([facility]) Mar Smith, TELECOM SPECIALIST: [address], [place] [address], Ph. Attender: Mar Smith [facility] - [facility] - [facility] 11/22/2019 12:00:00 AM EDT ATHE NA ([facility]) Mar Smith, TELECOM SPECIALIST: [address], [address], [place] [address], Ph. Attender: Mar Smith [facility] - [facility] 11/22/2019 12:00:00 AM EDT ATHE NA ([facility]) Mar Smith, TELECOM SPECIALIST: [address], [place] [address], Ph. Attender: Mar Smith [facility] - [facility] 11/22/2019 12:00:00 AM EDT ATHE NA ([facility]) Oleg Ling MD: [address], [address], [place] [address], Ph. Attender: Oleg CHAIREZ - [facility] 11/07/2019 12:00:00 AM EDT MARILIA ([facility]) Oleg Ling MD: [address], [address], [place] [address], Ph. Attender: Oleg CHAIREZ - [facility] 11/07/2019 12:00:00 AM EDT MARILIA ([facility]) Oleg Ling MD: [address], [address], [place] [address], Ph. Attender: Oleg Ling MD [place] - [facility] 11/07/2019 12:00:00 AM EDT MARILIA ([facility]) Oleg Ling MD: [address], [address], [place] [address], Ph. Attender: Oleg CHAIREZ - [facility] 11/07/2019 12:00:00 AM EDT MARILIA ([facility]) Oleg Ling MD: [address], [address], [place] [address], Ph. Attender: Oleg CHAIREZ - [facility] 11/07/2019 12:00:00 AM EDT MARILIA ([facility]) Oleg Ling MD: [address], [address], [place] [address], Ph. Attender: Oleg CHAIREZ - [facility] 11/07/2019 12:00:00 AM EDT MARILIA ([facility]) Oleg Ling MD: [address], [address], [place] [address], Ph. Attender: Oleg CHAIREZ - [facility] 11/07/2019 12:00:00 AM EDT MARILIA ([facility]) Oleg Ling MD: [address], [address], [place] [address], Ph. Attender: Oleg CHAIREZ - [facility] 11/07/2019 12:00:00 AM EDT MARILIA ([facility]) Oleg Ling MD: [address], [address], [place] [address], Ph. Attender: Oleg CHIAREZ - [facility] 11/07/2019 12:00:00 AM EDT MARILIA ([facility]) Oleg Ling MD: [address], [address], [place] [address], Ph. Attender: Oleg Ling MD [place] - [facility] 11/07/2019 12:00:00 AM EDT MARILIA ([facility]) Oleg Ling MD: [address], [address], [place] [address], Ph. [phone] Attender: Oleg Ling MD [place] - [facility] 11/02/2019 12:00:00 AM EDT MARILIA ([facility]) Oleg Ling MD: [address], [address], [place] [address], Ph. [phone] Attender: Oleg Ling MD [place] - [facility] 11/02/2019 12:00:00 AM EDT MARILIA ([facility] [facility]) Oleg Ling MD: [id number], [address], [place] [address], Ph. [phone] Attender: Oleg Ling MD [place] - [facility] 11/02/2019 12:00:00 AM EDT MARILIA ([facility]) Oleg Ling MD: [id number], [address], [place] [address], Ph. [phone] Attender: Oleg Ling MD [place] - [facility] 11/02/2019 12:00:00 AM EDT MARILIA ([facility]) Oleg Ling MD: [address], [address], [place] [address], Ph. [phone] Attender: Oleg Ling MD [place] - [facility] 11/02/2019 12:00:00 AM EDT MARILIA ([facility]) Oleg Ling MD: [address], [address], [place] [address], Ph. [phone] Attender: Oleg Ling MD [place] - [facility] 11/02/2019 12:00:00 AM EDT MARILIA ([facility]) Oleg Ling MD: [address], [address], [place] [address], Ph. [phone] Attender: Oleg Ling MD [place] - [facility] 11/02/2019 12:00:00 AM EDT MARILIA ([facility]) Oleg Ling MD: [address], [address], [place] [address], Ph. [phone] Attender: Oleg Ling MD [place] - [facility] 11/02/2019 12:00:00 AM EDT MARILIA ([facility]) Oleg Ling MD: [address], [address], [place] [address], Ph. [phone] Attender: Oleg Ling MD [place] - [facility] 11/02/2019 12:00:00 AM EDT MARILIA ([facility]) Oleg Ling MD: [address], [address], [place] [address], Ph. [phone] Attender: Oleg Ling MD [place] - [facility] 11/02/2019 12:00:00 AM EDT MARILIA ([facility]) Oleg Ling MD: [address], [address], [place] [address], Ph. [phone] Attender: Oleg Ling MD [place] - [facility] 11/02/2019 12:00:00 AM EDT MARILIA ([facility]) Mar Smith, TELECOM SPECIALIST: [address], [address], [place] [address], Ph. Attender: Mar Smith [facility] - [facility] 10/24/2019 12:00:00 AM EDT ATHE NA ([facility]) Mar Smith, TELECOM SPECIALIST: [address], [address], [place] [address], Ph. Attender: Mar Smith [facility] - [facility] 10/24/2019 12:00:00 AM EDT ATHE NA ([facility]) Mar Smith, TELECOM SPECIALIST: [address], [place] [address], Ph. Attender: Mar Smith [facility] - [facility] 10/24/2019 12:00:00 AM EDT ATHE NA ([facility]) Mar Smith, TELECOM SPECIALIST: [address], [address], [place] [address], Ph. Attender: Mar Smith [facility] - [facility] 10/24/2019 12:00:00 AM EDT ATHE NA ([facility]) Mar Smith, TELECOM SPECIALIST: [address], [address], [place] [address], Ph. Attender: Mar Smith [facility] - [facility] 10/24/2019 12:00:00 AM EDT ATHE NA ([facility]) Mar Smith, TELECOM SPECIALIST: [address], [address], [place] [address], Ph. Attender: Mar Smith [facility] - [facility] 10/24/2019 12:00:00 AM EDT ATHE NA ([facility]) Mar Smith, TELECOM SPECIALIST: [address], [place] [address], Ph. Attender: Mar Smith [facility] - [facility] 10/24/2019 12:00:00 AM EDT ATHE NA ([facility]) Mar Smith, TELECOM SPECIALIST: [address], [place] [address], Ph. Attender: Mar Smith [facility] - [facility] 10/24/2019 12:00:00 AM EDT ATHE NA ([facility]) Mar Smith, TELECOM SPECIALIST: [address], [place] [address], Ph. Attender: Mar Smith [facility] - [facility] 10/24/2019 12:00:00 AM EDT ATHE NA ([facility]) Mar Smith, TELECOM SPECIALIST: [address], [place] [address], Ph. Attender: Mar Smith [facility] - [facility] 10/24/2019 12:00:00 AM EDT ATHE NA ([facility]) Mar Smith, TELECOM SPECIALIST: [address], [address], [place] [address], Ph. Attender: Mar Smith [facility] - [facility] 10/24/2019 12:00:00 AM EDT ATHE NA ([facility]) Mar Smith, TELECOM SPECIALIST: [address], [address], [place] [address], Ph. Attender: Mar Smith LINNEA [place] - [facility] - Main Office 10/24/2019 12:00:00 AM EDT VANCE NA ([facility]) OFFICE OUTPATIENT VISIT 15 MINUTES Attender: Bren RODRIGES Physical Therapy 10/17/2019 10:45:00 AM EDT MEDENT ([facility]) [facility] [address] [facility] [address] 10/12/2019 12:00:00 AM EDT eCW1 [facility] Outpatient Attender: Amira Garg 10/11/2019 08:07:00 PM E DT Replaced By [facility] Outpatient Attender: Amira Harrell/ [facility] 11:00:00 AM EDT MEDENT ([facility]) Outpatient Attender: Monica Bal MD 09/04/2019 08:59 :00 PM EDT [facility] Outpatient Attender: Monica Harrell/ [facility] 09/04/2019 11:45:00 AM EDT MEDENT ([facility]) Unknown [address] [facility] [address] 08/21/2019 12:00:00 AM EDT eCW1 [facility] [place] [facility] Outpatient Attender: [facility] 08/14/2019 07:45:42 PM EDT [facility] Outpatient [address] [facility] [facility] [address] 08/08/2019 12:00:00 AM EDT eCW1 ([facility] [place] [facility]) Unknown [address] [facility] [facility] [address] 08/02/2019 12:00:00 AM EDT eCW1 [facility] [address] [facility] [place] [address] 07/31/2019 12:00:00 AM EDT eCW1 [facility]) [address] [address] 07/27/2019 12:00:00 AM EDT eCW1 ([facility]) [address] [address] 07/10/2019 12:00:00 AM EDT eCW1 ([facility]) Outpatient Attender: Eliane Cardenas NP [place] 11:00:00 AM EDT MEDENT ([facility]) Outpatient Attender: Cesario Gao MDReferrer: Kimani Lees 06/21/2019 10:41:00 AM EDT - 06/21/2019 11:40:00 AM EDT [facility] Outpatient Attender: ROBBI RODRIGES 0 10:33:00 AM EDT POST OP ORTHO [facility] POST OP ORTHO Outpatient Referrer: Lamonte Chapa MD 06/19/2019 04:53:00 AM EDT [facility] [address] [address] 06/08/2019 12:00:00 AM EDT eCW1 ([facility]) [address], [facility] [address] 06/07/2019 12:00:00 AM EDT eCW1 ([facility]) Outpatient Attender: ROBBI RODRIGES 0 04:29:00 PM EST [id number] [facility] [id number] Outpatient Attender: ROBBI CHANG PAReferrer: Kimani montalvo MD 05/11/2019 03:50:00 PM EST - 05/11/2019 05:05:00 PM EST [address] [address] 04/19/2019 12:00:00 AM EST eCW1 ([facility]) [address] [address] 04/19/2019 12:00:00 AM EST eCW1 ([facility]) Outpatient Attender: Cesario Gao MD 04/03 10:15:00 AM EST - 04/03/2019 07:40:00 PM EST [id number] [facility] l [id number] Patient discharged. Outpatient Attender: Cesario Gao MDReferrer: Kimani Lees 03/29/2019 02:36:00 PM EST [facility] Outpatient Attender: ROBBI RODRIGES 0 02:17:00 PM EST POST OP FX [facility] POST OP FX [address], [facility] [address] 03/23/2019 12:00:00 AM EST eCW1 ([facility]) [address] [address] 03/21/2019 12:00:00 AM EST eCW1 ([facility]) [address] [address] 03/16/2019 12:00:00 AM EST [facility]CW1 [facility] [address] [place] [address] 03/16/2019 12:00:00 AM EST eCW1 [facility] Outpatient Attender: ROBBI CHANG PAReferrer: Kimani montalvo MD 03/14/2019 02:51:00 PM EST - 03/14/2019 04:11:00 PM EST [facility] Outpatient Attender: ROBBI RODRIGES 0 02:09:00 PM EST [id number] [facility] [id number] [address] [address] 03/08/2019 12:00:00 AM EST eCW1 [facility] Inpatient Attender: Ellie Jefferson MD Attender: Christian Jenkins MDAdmitter: Ellie Jefferson MDConsultant: Cesario Gao MD 02/19/2019 05:52:00 PM EST - 03/06/2019 02:05:00 PM EST S/P FEMUR FRACTURE [facility] S/P FEMUR FRACTURE Patient discharged. 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 Medications Medication Brand Name Start Date Product Form Dose Route Admi nistrative Instructions Pharmacy Instructions Status Indications Reaction Description Data Source(s) Ciprofloxacin 500 MG Oral Tablet Ciprofloxacin HCL 04/09/2020 12:00 :00 AM EST ORAL active [facility] ([facility] NITROFURANTOIN, MACROCRYSTALS 50 MG Oral Capsule [Macrodanti n] Macrodantin 04/09/2020 12:00:00 AM EST ORAL active [facility] ([facility]) Cyclobenzaprine hydrochloride 10 MG Oral Tablet Cyclob enzaprine HCl 10 MG Cyclobenzaprine HCl 10 MG 02/07/2020 12:00:00 AM EST active Cyclobenzaprine HCl 10 MG eCW1 ([facility]) Cyclobenzaprine hydrochloride 10 MG Oral Tablet Cyclob enzaprine HCl 10 MG Cyclobenzaprine HCl 10 MG 02/07/2020 12:00:00 AM EST active Cyclobenzaprine HCl 10 MG eCW1 ([facility]) Cyclobenzaprine hydrochloride 10 MG Oral Tablet Cyclob enzaprine HCl 10 MG Cyclobenzaprine HCl 10 MG 02/07/2020 12:00:00 AM EST active Cyclobenzaprine HCl 10 MG eCW1 ([facility]) Cyclobenzaprine hydrochloride 5 MG Oral Tablet Cyclobe nzaprine HCl 5 MG Cyclobenzaprine HCl 5 MG 02/07/2020 12:00:00 AM EST active Cyclobenzaprine HCl 5 MG eCW1 ([facility]) Metronidazole 500 MG Oral Tablet Metronidazole 01/14/2020 12:00:00 AM EST ORAL active [facility] ([facility]) NITROFURANTOIN, MACROCRYSTALS 25 MG / Ni trofurantoin, Monohydrate 75 MG Oral Capsule [Macrobid] Macrobid 01/10/2020 12:00:00 AM EST ORAL completed [facility] ([facility]) Tamsulosin hydrochloride 0.4 MG Oral Capsule Tamsulosin HCL 01/10/2020 12:00:00 AM EST active [facility] ([facility]) Ciprofloxacin 250 MG Oral Tablet Ciprofloxacin HCL 12/13/2019 12:00 :00 AM EDT ORAL completed [facility] ([facility]) Amitriptyline Hydrochloride 25 MG Oral Tablet Amitript yline HCl 25 MG Amitriptyline HCl 25 MG 12/06/2019 12:00:00 AM EDT active Amitriptyline HCl 25 MG eCW1 ([facility]) Amitriptyline Hydrochloride 25 MG Oral Tablet Amitript yline HCl 25 MG Amitriptyline HCl 25 MG 12/06/2019 12:00:00 AM EDT active Amitriptyline HCl 25 MG eCW1 ([facility]) Amitriptyline Hydrochloride 25 MG Oral Tablet Amitript yline HCl 25 MG Amitriptyline HCl 25 MG 12/06/2019 12:00:00 AM EDT active Amitriptyline HCl 25 MG eCW1 ([facility]) Amitriptyline Hydrochloride 25 MG Oral Tablet Amitript yline HCl 25 MG Amitriptyline HCl 25 MG 12/06/2019 12:00:00 AM EDT active Amitriptyline HCl 25 MG eCW1 ([facility]) Amitriptyline Hydrochloride 25 MG Oral Tablet Amitript yline HCl 25 MG Amitriptyline HCl 25 MG 12/06/2019 12:00:00 AM EDT active Amitriptyline HCl 25 MG eCW1 ([facility]) Amitriptyline Hydrochloride 25 MG Oral Tablet Amitript yline HCl 25 MG Amitriptyline HCl 25 MG 12/06/2019 12:00:00 AM EDT active Amitriptyline HCl 25 MG eCW1 ([facility]) Botox 50 Units For Waste For 200 Units JW Modifier 11/27/2019 12:00:00 AM EDT completed [facility] ([facility]) Medication administered onsite Ciprofloxacin 250 MG Oral Tablet Ciprofloxacin HCL 11/27/2019 12:00 :00 AM EDT ORAL completed [facility] ([facility] Botox 200 Units- I Vial 11/27/2019 12:00:00 AM EDT completed [facility] ([facility]) Medication administered onsite Alprazolam 1 MG Oral Tablet Alprazolam 10/11/2019 12:00:00 AM EDT ORAL completed [facility] ([facility]) cefdinir 300 MG Oral Capsule Cefdinir 09/06/2019 12:00:00 AM EDT ORAL active MEDENT ([facility] [place]) Estradiol 0.1 MG/ML Vaginal Cream [Estrace] Estrace 08/07 12:00:00 AM EDT active MEDENT ( [facility]) Albuterol 0.83 MG/ML Inhalant Solution Albuterol Sulfate 0 07/12/2019 12:00:00 AM EDT active MEDENT ([facility] ) tramadol hydrochloride 50 MG Oral Tablet Tramadol Tramadol 05/25/2019 05:46:43 PM EDT 50 MG active [facility] tramadol hydrochloride 50 MG Oral Tablet Tramadol Tramadol 05/11/2019 05:08:36 PM EST [address] [facility] Docusate Sodium 100 MG Oral Capsule Docusate Sodium 04/03/2019 1 0:42:12 AM EST 100 MG active [facility] Docusate Sodium 100 MG Oral Capsule Docusate Sodium 04/03/2019 1 0:42:12 AM EST 100 MG active [facility] Cyclobenzaprine hydrochloride 10 MG Oral Tablet Cyclobenzapr ine 04/03/2019 10:42:12 AM EST 15 MG active [facility] Cyclobenzaprine hydrochloride 10 MG Oral Tablet Cyclobenzapr ine 04/03/2019 10:42:12 AM EST 15 MG active [facility] Cyclobenzaprine hydrochloride 10 MG Oral Tablet Cyclobenzapr ine 04/03/2019 10:42:12 AM EST 15 MG active [facility] Docusate Sodium 100 MG Oral Capsule Docusate Sodium 04/03/2019 1 0:42:12 AM EST 100 MG active [facility] Doxycycline Monohydrate 100 MG UNK 03/23/2019 12:00:00 AM EST active 1 tablet eCW1 ([facility]) Methylprednisolone 2 MG Oral Tablet Methylprednisolone 10/2019 03:11:04 PM EST [address] [facility] Methylprednisolone 2 MG Oral Tablet Methylprednisolone 10/2019 03:11:04 PM EST [address] [facility] Methylprednisolone 2 MG Oral Tablet Methylprednisolone 10/2019 03:11:04 PM EST [address] [facility] Methylprednisolone 2 MG Oral Tablet Methylprednisolone 10/2019 03:11:04 PM EST [address] [facility] Oxycodone Hydrochloride 5 MG Oral Capsule Oxycodone 2018 08:32:10 AM EST 5 MG active [facility] Oxycodone Hydrochloride 5 MG Oral Capsule Oxycodone 2018 08:32:10 AM EST 5 MG completed [facility] Oxycodone Hydrochloride 5 MG Oral Capsule Oxycodone 2018 08:32:10 AM EST 5 MG completed [facility] Oxycodone Hydrochloride 5 MG Oral Capsule Oxycodone 2018 08:32:10 AM EST 5 MG [facility] Acetaminophen 500 MG Oral Tablet Acetaminophen 03/06/2019 08:29:47 AM EST 500 MG active [facility] Acetaminophen 500 MG Oral Tablet Acetaminophen 03/06/2019 08:29:47 AM EST 500 MG active [facility] Acetaminophen 500 MG Oral Tablet Acetaminophen 03/06/2019 08:29:47 AM EST 500 MG active [facility] Acetaminophen 500 MG Oral Tablet Acetaminophen 03/06/2019 08:29:47 AM EST 500 MG active [facility] 0.3 ML Enoxaparin sodium 100 MG/ML Prefilled Syringe Enoxapa rin 03/06/2019 08:24:12 AM EST 30 MG completed [facility] 0.3 ML Enoxaparin sodium 100 MG/ML Prefilled Syringe Enoxapa rin 03/06/2019 08:24:12 AM EST 30 MG completed [facility] 0.3 ML Enoxaparin sodium 100 MG/ML Prefilled Syringe Enoxapa rin 03/06/2019 08:24:12 AM EST 30 MG completed [facility] 0.3 ML Enoxaparin sodium 100 MG/ML Prefilled Syringe Enoxapa rin 03/06/2019 08:24:12 AM EST 30 MG completed [facility] Acetaminophen 325 MG / Oxycodone Hydroch loride 5 MG Oral Tablet Oxycodone-Acetaminophen Oxycodone-Acetaminophen 02/22/2019 11:14:39 AM EST 1 TAB completed [facility] POLYETHYLENE GLYCOL 3350 142 MG/ML Oral Solution Polye thylene Glycol 3350 Polyethylene Glycol 3350 02/22/2019 11:14:39 AM EST 17 GM completed [facility] POLYETHYLENE GLYCOL 3350 142 MG/ML Oral Solution Polye thylene Glycol 3350 Polyethylene Glycol 3350 02/22/2019 11:14:39 AM EST 17 GM completed [facility] POLYETHYLENE GLYCOL 3350 142 MG/ML Oral Solution Polye thylene Glycol 3350 Polyethylene Glycol 3350 02/22/2019 11:14:39 AM EST 17 GM completed [facility] Acetaminophen 325 MG / Oxycodone Hydroch loride 5 MG Oral Tablet Oxycodone-Acetaminophen Oxycodone-Acetaminophen 02/22/2019 11:14:39 AM EST 1 TAB completed [facility] Acetaminophen 325 MG / Oxycodone Hydroch loride 5 MG Oral Tablet Oxycodone-Acetaminophen Oxycodone-Acetaminophen 02/22/2019 11:14:39 AM EST 1 TAB completed [facility] POLYETHYLENE GLYCOL 3350 142 MG/ML Oral Solution Polye thylene Glycol 3350 Polyethylene Glycol 3350 02/22/2019 11:14:39 AM EST 17 GM completed [facility] Acetaminophen 325 MG / Oxycodone Hydroch loride 5 MG Oral Tablet Oxycodone-Acetaminophen Oxycodone-Acetaminophen 02/22/2019 11:14:39 AM EST 1 TAB completed [facility] Cyclobenzaprine hydrochloride 5 MG Oral Tablet Cyclobenzapri ne 02/22/2019 11:07:47 AM EST 15 MG completed [facility] Cyclobenzaprine hydrochloride 5 MG Oral Tablet Cyclobenzapri ne 02/22/2019 11:07:47 AM EST 15 MG completed [facility] Cyclobenzaprine hydrochloride 5 MG Oral Tablet Cyclobenzapri ne 02/22/2019 11:07:47 AM EST 15 MG completed [facility] Cyclobenzaprine hydrochloride 5 MG Oral Tablet Cyclobenzapri ne 02/22/2019 11:07:47 AM EST 15 MG completed [facility] Clonazepam 0.5 MG Oral Tablet Clonazepam 02/21/2019 09:13:28 AM EST 0.5 MG completed [facility] Fluticasone Propion-Salmeterol 02/21/2019 09:13:28 AM EST 1 PUFFS completed [facility] Clonazepam 0.5 MG Oral Tablet Clonazepam 02/21/2019 09:13:28 AM EST 0.5 MG completed [facility] Fluticasone Propion-Salmeterol 02/21/2019 09:13:28 AM EST 1 PUFFS completed [facility] Clonazepam 0.5 MG Oral Tablet Clonazepam 02/21/2019 09:13:28 AM EST 0.5 MG completed [facility] Docusate Sodium 100 MG Oral Capsule Docusate Sodium 02/21/2019 0 9:13:28 AM EST 100 MG completed [facility] Docusate Sodium 100 MG Oral Capsule Docusate Sodium 02/21/2019 0 9:13:28 AM EST 100 MG completed [facility] Docusate Sodium 100 MG Oral Capsule Docusate Sodium 02/21/2019 0 9:13:28 AM EST 100 MG completed [facility] Fluticason Propion-Salmeterol 02/21/2019 09:13:28 AM EST 1 PUFFS completed [facility] Docusate Sodium 100 MG Oral Capsule Docusate Sodium 02/21/2019 0 9:13:28 AM EST 100 MG completed [facility] Prednisone 20 MG Oral Tablet Prednisone 02/20/2019 02:42:04 AM EST 10 MG completed [facility] Prednisone 20 MG Oral Tablet Prednisone 02/20/2019 02:42:04 AM EST 10 MG completed [facility] Prednisone 20 MG Oral Tablet Prednisone 02/20/2019 02:42:04 AM EST 10 MG completed [facility] Prednisone 20 MG Oral Tablet Prednisone 02/20/2019 02:42:04 AM EST 10 MG completed [facility] celecoxib 200 MG Oral Capsule Celecoxib Celecoxib 02/19/2019 05: 19:17 PM EST 200 MG completed [facility] Indapamide 2.5 MG Oral Tablet Indapamide 02/19/2019 05:19:17 PM EST 2.5 MG completed [facility] Indapamide 2.5 MG Oral Tablet Indapamide 02/19/2019 05:19:17 PM EST 2.5 MG completed [facility] celecoxib 200 MG Oral Capsule Celecoxib Celecoxib 02/19/2019 05: 19:17 PM EST 200 MG completed [facility] celecoxib 200 MG Oral Capsule Celecoxib Celecoxib 02/19/2019 05: 19:17 PM EST 200 MG completed [facility] Indapamide 2.5 MG Oral Tablet Indapamide 02/19/2019 05:19:17 PM EST 2.5 MG completed [facility] celecoxib 200 MG Oral Capsule Celecoxib Celecoxib 02/19/2019 05: 19:17 PM EST 200 MG completed [facility] Indapamide 2.5 MG Oral Tablet Indapamide 02/19/2019 05:19:17 PM EST 2.5 MG completed [facility] Prednisone 20 MG Oral Tablet prednisone 20 mg tablet TAKE ONE TABLET BY MOUTH ONCE DAILY FOR FIVE DAYS prednisone 20 mg tablet TAKE ONE TABLET BY MOUTH ONCE DAILY FOR FIVE DAYS completed pr ednisone 20 MG Oral Tablet MARILIA ([facility]) Estradiol 0.1 MG/ML Vaginal Cream estradiol 0.01% (0.1 mg/gram) vaginal cream estradiol 0.01% (0.1 mg/gram) vaginal cream completed estradiol 0.1 MG/ML Vaginal Cream MARILIA ([facility]) Acetaminophen 325 MG / Oxycodone Hydroch loride 5 MG Oral Tablet oxycodone- acetaminophen 5 mg-325 mg tablet oxycodone-acetaminophen 5 mg-325 mg tablet completed acetaminop hen 325 MG / oxycodone hydrochloride 5 MG Oral Tablet MAIRLIA ([facility]) Acetaminophen 325 MG / Oxycodone Hydroch loride 5 MG Oral Tablet oxycodone- acetaminophen 5 mg-325 mg tablet oxycodone-acetaminophen 5 mg-325 mg tablet completed acetaminop hen 325 MG / oxycodone hydrochloride 5 MG Oral Tablet MARILIA ([facility]) Alprazolam 1 MG Oral Tablet alprazolam 1 mg tablet alprazolam 1 mg ta blet completed alprazolam 1 MG Oral Tablet MARILIA ([facility]) Amoxicillin 500 MG / Clavulanate 125 MG Oral Tablet amoxicillin 500 mg-potassium clavulanate 125 mg tablet TAKE ONE TABLET BY MOUTH EVERY TWELVE HOURS amoxicillin 500 mg-potassium clavulanate 125 mg tablet TAKE ONE TABLET BY MOUTH EVERY TWELVE HOURS completed amoxicillin 500 MG / clavulanate 125 MG Oral Tablet MARILIA ([facility]) Prednisone 20 MG Oral Tablet prednisone 20 mg tablet TAKE ONE TABLET BY MOUTH ONCE DAILY FOR FIVE DAYS prednisone 20 mg tablet TAKE ONE TABLET BY MOUTH ONCE DAILY FOR FIVE DAYS completed pr ednisone 20 MG Oral Tablet MARILIA ([facility]) Methylprednisolone 2 MG Oral Tablet [Med rol] Medrol 2 mg tablet 1 tablet every other day Medrol 2 mg tablet 1 tablet every other day completed methylprednisolone 2 MG Oral Tablet [Medrol] MARILIA ([facility]) Prednisone 20 MG Oral Tablet prednisone 20 mg tablet TAKE ONE TABLET BY MOUTH ONCE DAILY FOR FIVE DAYS prednisone 20 mg tablet TAKE ONE TABLET BY MOUTH ONCE DAILY FOR FIVE DAYS completed pr ednisone 20 MG Oral Tablet MARILIA ([facility] [email or web address]) Methylprednisolone 2 MG Oral Tablet [Med rol] Medrol 2 mg tablet 1 tablet every other day Medrol 2 mg tablet 1 tablet every other day completed methylprednisolone 2 MG Oral Tablet [Medrol] MARILIA ([facility]) Oxycodone Hydrochloride 5 MG Oral Tablet oxycodone 5 mg tablet TAKE 1 TO 2 TABLETS BY MOUTH EVERY FOUR HOURS NEEDED FOR PAIN MAX DAILY DOSE 12 CAPSULES oxycodone 5 mg tablet TAKE 1 TO 2 TABLETS BY MOUTH EVERY FOUR HOURS NEEDED FOR PAIN MAX DAILY DOSE 12 CAPSULES co mpleted oxycodone hydrochloride 5 MG Oral Tablet [facility] ([facility]) Acetaminophen 325 MG / Oxycodone Hydroch loride 5 MG Oral Tablet oxycodone- acetaminophen 5 mg-325 mg tablet oxycodone-acetaminophen 5 mg-325 mg tablet completed acetaminop hen 325 MG / oxycodone hydrochloride 5 MG Oral Tablet [facility] ([facility]) Methylprednisolone 4 MG Oral Tablet methylprednisolone 4 mg tablet 1 tab daily methylprednisolone 4 mg tablet 1 tab daily completed methylprednisolone 4 MG Oral Tablet MAR[facility] ([facility]) Estradiol 0.1 MG/ML Vaginal Cream estradiol 0.01% (0.1 mg/gram) vaginal cream estradiol 0.01% (0.1 mg/gram) vaginal cream completed estradiol 0.1 MG/ML Vaginal Cream MARILIA ([facility]) Doxycycline Monohydrate 100 MG Oral Caps ule doxycycline monohydrate 100 mg capsule TAKE ONE CAPSULE BY MOUTH TWICE DAILY FOR SEVEN DAYS doxycycline monohydrate 100 mg capsule TAKE ONE CAPSULE BY MOUTH TWICE DAILY FOR SEVEN DAYS completed doxycycline mo nohydrate 100 MG Oral Capsule MARIL[facility] ([facility]) Methylprednisolone 4 MG Oral Tablet methylprednisolone 4 mg tablet 1 tab daily methylprednisolone 4 mg tablet 1 tab daily completed methylprednisolone 4 MG Oral Tablet MARIL[facility] ([facility]) tramadol hydrochloride 50 MG Oral Tablet tramadol 50 mg tablet TAKE ONE TABLET BY MOUTH EVERY 6 HOURS NEEDED FOR PAIN MAX DAILY DOSE FOUR TABLETS tramadol 50 mg tablet TAKE ONE TABLET BY MOUTH EVERY 6 HOURS NEEDED FOR PAIN MAX DAILY DOSE FOUR TABLETS completed tramadol hydrochloride 50 MG Oral Tablet MARILIA ([facility]) Doxycycline Monohydrate 100 MG Oral Caps ule doxycycline monohydrate 100 mg capsule TAKE ONE CAPSULE BY MOUTH TWICE DAILY FOR SEVEN DAYS doxycycline monohydrate 100 mg capsule TAKE ONE CAPSULE BY MOUTH TWICE DAILY FOR SEVEN DAYS completed doxycycline mo nohydrate 100 MG Oral Capsule MARILIA ([facility]) Amoxicillin 500 MG / Clavulanate 125 MG Oral Tablet amoxicillin 500 mg-potassium clavulanate 125 mg tablet TAKE ONE TABLET BY MOUTH EVERY TWELVE HOURS amoxicillin 500 mg-potassium clavulanate 125 mg tablet TAKE ONE TABLET BY MOUTH EVERY TWELVE HOURS completed amoxicillin 500 MG / clavulanate 125 MG Oral Tablet MARILIA ([facility]) 0.3 ML Enoxaparin sodium 100 MG/ML Prefi lled Syringe enoxaparin 30 mg/0.3 mL subcutaneous syringe INJECT 0.3 MILLILITERS SUBCUTANEOUSLY EVERY 12 HOURS FOR TWO WEEKS enoxaparin 30 mg/0.3 mL subcutaneous syr travis INJECT 0.3 MILLILITERS SUBCUTANEOUSLY EVERY 12 HOURS FOR TWO WEEKS completed 0.3 ML enoxaparin sodium 100 MG/ML Prefilled Syringe MARILIA ([facility]) Prednisone 20 MG Oral Tablet prednisone 20 mg tablet TAKE ONE TABLET BY MOUTH ONCE DAILY FOR FIVE DAYS prednisone 20 mg tablet TAKE ONE TABLET BY MOUTH ONCE DAILY FOR FIVE DAYS completed pr ednisone 20 MG Oral Tablet MAR[facility]IA ([facility]) 0.3 ML Enoxaparin sodium 100 MG/ML Prefi lled Syringe enoxaparin 30 mg/0.3 mL subcutaneous syringe INJECT 0.3 MILLILITERS SUBCUTANEOUSLY EVERY 12 HOURS FOR TWO WEEKS enoxaparin 30 mg/0.3 mL subcutaneous syr travis INJECT 0.3 MILLILITERS SUBCUTANEOUSLY EVERY 12 HOURS FOR TWO WEEKS completed 0.3 ML enoxaparin sodium 100 MG/ML Prefilled Syringe MARILIA ([facility]) Ciprofloxacin 250 MG Oral Tablet ciprofl oxacin 250 mg tablet TAKE ONE TABLET BY MOUTH TWICE DAILY FOR 3 DAYS ciprofloxacin 250 mg tablet TAKE ONE TAB LET BY MOUTH TWICE DAILY FOR 3 DAYS completed ciprofloxacin 250 MG Oral Tablet MARILIA ([facility]) Methylprednisolone 2 MG Oral Tablet [Med rol] Medrol 2 mg tablet 1 tablet every other day Medrol 2 mg tablet 1 tablet every other day completed methylprednisolone 2 MG Oral Tablet [Medrol] MARILIA ([facility]) Ciprofloxacin 250 MG Oral Tablet ciprofl oxacin 250 mg tablet TAKE ONE TABLET BY MOUTH TWICE DAILY FOR 3 DAYS ciprofloxacin 250 mg tablet TAKE ONE TAB LET BY MOUTH TWICE DAILY FOR 3 DAYS completed ciprofloxacin 250 MG Oral Tablet MARILIA ([facility]) Oxycodone Hydrochloride 5 MG Oral Tablet oxycodone 5 mg tablet TAKE 1 TO 2 TABLETS BY MOUTH EVERY FOUR HOURS NEEDED FOR PAIN MAX DAILY DOSE 12 CAPSULES oxycodone 5 mg tablet TAKE 1 TO 2 TABLETS BY MOUTH EVERY FOUR HOURS NEEDED FOR PAIN MAX DAILY DOSE 12 CAPSULES co mpleted oxycodone hydrochloride 5 MG Oral Tablet MARILIA ([facility]) cefdinir 300 MG Oral Capsule cefdinir 300 mg capsule cefdinir 30 0 mg capsule completed cefdinir 300 M G Oral Capsule MARILIA ([facility]) Amoxicillin 500 MG / Clavulanate 125 MG Oral Tablet amoxicillin 500 mg-potassium clavulanate 125 mg tablet TAKE ONE TABLET BY MOUTH EVERY TWELVE HOURS amoxicillin 500 mg-potassium clavulanate 125 mg tablet TAKE ONE TABLET BY MOUTH EVERY TWELVE HOURS completed amoxicillin 500 MG / clavulanate 125 MG Oral Tablet MARILIA ([facility]) Doxycycline Monohydrate 100 MG Oral Caps ule doxycycline monohydrate 100 mg capsule TAKE ONE CAPSULE BY MOUTH TWICE DAILY FOR SEVEN DAYS doxycycline monohydrate 100 mg capsule TAKE ONE CAPSULE BY MOUTH TWICE DAILY FOR SEVEN DAYS completed doxycycline mo nohydrate 100 MG Oral Capsule MARILIA ([facility]) Oxycodone Hydrochloride 5 MG Oral Tablet oxycodone 5 mg tablet TAKE 1 TO 2 TABLETS BY MOUTH EVERY FOUR HOURS NEEDED FOR PAIN MAX DAILY DOSE 12 CAPSULES oxycodone 5 mg tablet TAKE 1 TO 2 TABLETS BY MOUTH EVERY FOUR HOURS NEEDED FOR PAIN MAX DAILY DOSE 12 CAPSULES co mpleted oxycodone hydrochloride 5 MG Oral Tablet MARILIA ([facility]) glimepiride 2 MG Oral Tablet glimepiride 2 mg tablet TAKE ONE TABLET BY MOUTH @8AM and TAKE ONE TABLET @8PM glimepiride 2 mg tablet TAKE ONE TABLET BY MOUTH @8AM and TAKE ONE TABLET @8PM complete d glimepiride 2 MG Oral Tablet MARILIA ([facility]) Oxycodone Hydrochloride 5 MG Oral Tablet oxycodone 5 mg tablet TAKE 1 TO 2 TABLETS BY MOUTH EVERY FOUR HOURS NEEDED FOR PAIN MAX DAILY DOSE 12 CAPSULES oxycodone 5 mg tablet TAKE 1 TO 2 TABLETS BY MOUTH EVERY FOUR HOURS NEEDED FOR PAIN MAX DAILY DOSE 12 CAPSULES co mpleted oxycodone hydrochloride 5 MG Oral Tablet MARILIA ([facility]) tramadol hydrochloride 50 MG Oral Tablet tramadol 50 mg tablet TAKE ONE TABLET BY MOUTH EVERY 6 HOURS NEEDED FOR PAIN MAX DAILY DOSE FOUR TABLETS tramadol 50 mg tablet TAKE ONE TABLET BY MOUTH EVERY 6 HOURS NEEDED FOR PAIN MAX DAILY DOSE FOUR TABLETS completed tramadol hydrochloride 50 MG Oral Tablet MARILIA ([facility]) tramadol hydrochloride 50 MG Oral Tablet tramadol 50 mg tablet TAKE ONE TABLET BY MOUTH EVERY 6 HOURS NEEDED FOR PAIN MAX DAILY DOSE FOUR TABLETS tramadol 50 mg tablet TAKE ONE TABLET BY MOUTH EVERY 6 HOURS NEEDED FOR PAIN MAX DAILY DOSE FOUR TABLETS completed tramadol hydrochloride 50 MG Oral Tablet MARILIA ([facility]) Acetaminophen 325 MG / Oxycodone Hydroch loride 5 MG Oral Tablet oxycodone- acetaminophen 5 mg-325 mg tablet oxycodone-acetaminophen 5 mg-325 mg tablet completed acetaminop hen 325 MG / oxycodone hydrochloride 5 MG Oral Tablet MARILIA ([facility]) Estradiol 0.1 MG/ML Vaginal Cream estradiol 0.01% (0.1 mg/gram) vaginal cream estradiol 0.01% (0.1 mg/gram) vaginal cream completed estradiol 0.1 MG/ML Vaginal Cream MARILIA ([facility]) cefdinir 300 MG Oral Capsule cefdinir 300 mg capsule cefdinir 30 0 mg capsule completed cefdinir 300 M G Oral Capsule MARILIA ([facility]) cefdinir 300 MG Oral Capsule cefdinir 300 mg capsule cefdinir 30 0 mg capsule completed cefdinir 300 M G Oral Capsule MARILIA ([facility]) Doxycycline Monohydrate 100 MG Oral Caps ule doxycycline monohydrate 100 mg capsule TAKE ONE CAPSULE BY MOUTH TWICE DAILY FOR SEVEN DAYS doxycycline monohydrate 100 mg capsule TAKE ONE CAPSULE BY MOUTH TWICE DAILY FOR SEVEN DAYS completed doxycycline mo nohydrate 100 MG Oral Capsule MARILIA ([facility]) 0.3 ML Enoxaparin sodium 100 MG/ML Prefi lled Syringe enoxaparin 30 mg/0.3 mL subcutaneous syringe INJECT 0.3 MILLILITERS SUBCUTANEOUSLY EVERY 12 HOURS FOR TWO WEEKS enoxaparin 30 mg/0.3 mL subcutaneous syr travis INJECT 0.3 MILLILITERS SUBCUTANEOUSLY EVERY 12 HOURS FOR TWO WEEKS completed 0.3 ML enoxaparin sodium 100 MG/ML Prefilled Syringe MARILIA ([facility]) Ciprofloxacin 250 MG Oral Tablet ciprofl oxacin 250 mg tablet TAKE ONE TABLET BY MOUTH TWICE DAILY FOR 3 DAYS ciprofloxacin 250 mg tablet TAKE ONE TAB LET BY MOUTH TWICE DAILY FOR 3 DAYS completed ciprofloxacin 250 MG Oral Tablet MARILIA ([facility]) Amoxicillin 500 MG / Clavulanate 125 MG Oral Tablet amoxicillin 500 mg-potassium clavulanate 125 mg tablet TAKE ONE TABLET BY MOUTH EVERY TWELVE HOURS amoxicillin 500 mg-potassium clavulanate 125 mg tablet TAKE ONE TABLET BY MOUTH EVERY TWELVE HOURS completed amoxicillin 500 MG / clavulanate 125 MG Oral Tablet MARILIA ([facility]) Methylprednisolone 2 MG Oral Tablet [Med rol] Medrol 2 mg tablet 1 tablet every other day Medrol 2 mg tablet 1 tablet every other day completed methylprednisolone 2 MG Oral Tablet [Medrol] MARILIA ([facility]) Alprazolam 1 MG Oral Tablet alprazolam 1 mg tablet alprazolam 1 mg ta blet completed alprazolam 1 MG Oral Tablet MARILIA ([facility]) Methylprednisolone 4 MG Oral Tablet methylprednisolone 4 mg tablet 1 tab daily methylprednisolone 4 mg tablet 1 tab daily completed methylprednisolone 4 MG Oral Tablet MARILIA ([facility]) Doxycycline Monohydrate 100 MG Oral Caps ule doxycycline monohydrate 100 mg capsule TAKE ONE CAPSULE BY MOUTH TWICE DAILY FOR SEVEN DAYS doxycycline monohydrate 100 mg capsule TAKE ONE CAPSULE BY MOUTH TWICE DAILY FOR SEVEN DAYS completed doxycycline mo nohydrate 100 MG Oral Capsule MARILIA ([facility]) Estradiol 0.1 MG/ML Vaginal Cream estradiol 0.01% (0.1 mg/gram) vaginal cream estradiol 0.01% (0.1 mg/gram) vaginal cream completed estradiol 0.1 MG/ML Vaginal Cream MARILIA ([facility]) Methylprednisolone 4 MG Oral Tablet methylprednisolone 4 mg tablet 1 tab daily methylprednisolone 4 mg tablet 1 tab daily completed methylprednisolone 4 MG Oral Tablet MARILIA ([facility]) Methylprednisolone 4 MG Oral Tablet methylprednisolone 4 mg tablet 1 tab daily methylprednisolone 4 mg tablet 1 tab daily completed methylprednisolone 4 MG Oral Tablet MARILIA ([facility]) Alprazolam 1 MG Oral Tablet alprazolam 1 mg tablet alprazolam 1 mg ta blet completed alprazolam 1 MG Oral Tablet MARILIA ([facility]) Ciprofloxacin 250 MG Oral Tablet ciprofl oxacin 250 mg tablet TAKE ONE TABLET BY MOUTH TWICE DAILY FOR 3 DAYS ciprofloxacin 250 mg tablet TAKE ONE TAB LET BY MOUTH TWICE DAILY FOR 3 DAYS completed ciprofloxacin 250 MG Oral Tablet MARILIA ([facility]) Acetaminophen 325 MG / Oxycodone Hydroch loride 5 MG Oral Tablet oxycodone- acetaminophen 5 mg-325 mg tablet oxycodone-acetaminophen 5 mg-325 mg tablet completed acetaminop hen 325 MG / oxycodone hydrochloride 5 MG Oral Tablet MARILIA ([facility]) 0.3 ML Enoxaparin sodium 100 MG/ML Prefi lled Syringe enoxaparin 30 mg/0.3 mL subcutaneous syringe INJECT 0.3 MILLILITERS SUBCUTANEOUSLY EVERY 12 HOURS FOR TWO WEEKS enoxaparin 30 mg/0.3 mL subcutaneous syr travis INJECT 0.3 MILLILITERS SUBCUTANEOUSLY EVERY 12 HOURS FOR TWO WEEKS completed 0.3 ML enoxaparin sodium 100 MG/ML Prefilled Syringe MARILIA ([facility]) cefdinir 300 MG Oral Capsule cefdinir 300 mg capsule cefdinir 30 0 mg capsule completed cefdinir 300 M G Oral Capsule MARILIA ([facility]) Estradiol 0.1 MG/ML Vaginal Cream estradiol 0.01% (0.1 mg/gram) vaginal cream estradiol 0.01% (0.1 mg/gram) vaginal cream completed estradiol 0.1 MG/ML Vaginal Cream MARILIA ([facility]) 0.3 ML Enoxaparin sodium 100 MG/ML Prefi lled Syringe enoxaparin 30 mg/0.3 mL subcutaneous syringe INJECT 0.3 MILLILITERS SUBCUTANEOUSLY EVERY 12 HOURS FOR TWO WEEKS enoxaparin 30 mg/0.3 mL subcutaneous syr travis INJECT 0.3 MILLILITERS SUBCUTANEOUSLY EVERY 12 HOURS FOR TWO WEEKS completed 0.3 ML enoxaparin sodium 100 MG/ML Prefilled Syringe MARILIA ([facility]) Prednisone 20 MG Oral Tablet prednisone 20 mg tablet TAKE ONE TABLET BY MOUTH ONCE DAILY FOR FIVE DAYS prednisone 20 mg tablet TAKE ONE TABLET BY MOUTH ONCE DAILY FOR FIVE DAYS completed pr ednisone 20 MG Oral Tablet MARILIA ([facility]) Alprazolam 1 MG Oral Tablet alprazolam 1 mg tablet alprazolam 1 mg ta blet completed alprazolam 1 MG Oral Tablet MARILIA ([facility]) Methylprednisolone 2 MG Oral Tablet [Med rol] Medrol 2 mg tablet 1 tablet every other day Medrol 2 mg tablet 1 tablet every other day completed methylprednisolone 2 MG Oral Tablet [Medrol] MARILIA ([facility]) Ciprofloxacin 250 MG Oral Tablet ciprofl oxacin 250 mg tablet TAKE ONE TABLET BY MOUTH TWICE DAILY FOR 3 DAYS ciprofloxacin 250 mg tablet TAKE ONE TAB LET BY MOUTH TWICE DAILY FOR 3 DAYS completed ciprofloxacin 250 MG Oral Tablet MARILIA ([facility]) cefdinir 300 MG Oral Capsule cefdinir 300 mg capsule cefdinir 30 0 mg capsule completed cefdinir 300 M G Oral Capsule MARILIA ([facility]) Oxycodone Hydrochloride 5 MG Oral Tablet oxycodone 5 mg tablet TAKE 1 TO 2 TABLETS BY MOUTH EVERY FOUR HOURS NEEDED FOR PAIN MAX DAILY DOSE 12 CAPSULES oxycodone 5 mg tablet TAKE 1 TO 2 TABLETS BY MOUTH EVERY FOUR HOURS NEEDED FOR PAIN MAX DAILY DOSE 12 CAPSULES co mpleted oxycodone hydrochloride 5 MG Oral Tablet MARILIA ([facility]) tramadol hydrochloride 50 MG Oral Tablet tramadol 50 mg tablet TAKE ONE TABLET BY MOUTH EVERY 6 HOURS NEEDED FOR PAIN MAX DAILY DOSE FOUR TABLETS tramadol 50 mg tablet TAKE ONE TABLET BY MOUTH EVERY 6 HOURS NEEDED FOR PAIN MAX DAILY DOSE FOUR TABLETS completed tramadol hydrochloride 50 MG Oral Tablet MARILIA ([facility]) Alprazolam 1 MG Oral Tablet alprazolam 1 mg tablet alprazolam 1 mg ta blet completed alprazolam 1 MG Oral Tablet MARILIA ([facility]) glimepiride 1 MG Oral Tablet glimepiride 1 mg tablet glimepiride 1 mg tablet completed glimepiride 1 MG Oral Tablet MARILIA ([facility]) Amoxicillin 500 MG / Clavulanate 125 MG Oral Tablet amoxicillin 500 mg-potassium clavulanate 125 mg tablet TAKE ONE TABLET BY MOUTH EVERY TWELVE HOURS amoxicillin 500 mg-potassium clavulanate 125 mg tablet TAKE ONE TABLET BY MOUTH EVERY TWELVE HOURS completed amoxicillin 500 MG / clavulanate 125 MG Oral Tablet MARILIA ([facility]) tramadol hydrochloride 50 MG Oral Tablet tramadol 50 mg tablet TAKE ONE TABLET BY MOUTH EVERY 6 HOURS NEEDED FOR PAIN MAX DAILY DOSE FOUR TABLETS tramadol 50 mg tablet TAKE ONE TABLET BY MOUTH EVERY 6 HOURS NEEDED FOR PAIN MAX DAILY DOSE FOUR TABLETS completed tramadol hydrochloride 50 MG Oral Tablet MARILIA ([facility]) Insurance Providers Payer name Policy type / Coverage type Policy ID Covered alliance party ID Covered alliance party's relationship to leonard Policy Leonard Plan Information [employer] COMMUNITY [employer]AN MCDO [id number] SP [id number] SELF PAY [employer] COMMUNITY PLAN [id number] SP [id number] [facility] O [id number] S [id number] SELF PAY UHC COMMUNITY PLAN [id number] SP [id number] SELF PAY UHC COMMUNITY PLAN [id number] SP [id number] SELF PAY U[employer] COMMUNITY PLAN [id number] SP [id number] [employer] COMMUNITY PLAN MCDO [id number] SP [id number] SELF PAY UHC COMMUNITY PLAN [id number] SP [id number] SELF PAY UHC COMMUNITY PLAN [id number] SP [id number] [employer] COMMUNITY PLAN MCDO [id number] SP [id number] ANSI-Medicaid [id number] ANSI-Not a Secondary Insurance [id number] ANSI-Medicaid [id number] ANSI-Not a Secondary Insurance [id number] [facility] - Medicaid Medicaid [id number] Self [id number] ANSI-Not a Secondary Insurance [id number] ANSI-Medicaid [id number] ANSI-Medicaid [id number] ANSI-Not a Secondary Insurance [id number] ANSI-Medicaid [id number] ANSI-Not a Secondary Insurance [id number] ANSI-Not a Secondary Insurance [id number] ANSI-Medicaid [id number] ANSI-Not a Secondary Insurance [id number] ANSI-Medicaid [id number] ANSI-Not a Secondary Insurance [id number] ANSI-Medicaid [id number] ANSI-Not a Secondary Insurance [id number] ANSI-Medicaid [id number] ANSI-Medicaid [id number] ANSI-Not a Secondary Insurance [id number] [facility] Plan Commercial [id number] Self [id number] ANSI-Medicaid [id number] ANSI-Not a Secondary Insurance [id number] ANSI-Not a Secondary Insurance [id number] ANSI-Medicaid [id number] ANSI-Not a Secondary Insurance [id number] ANSI-Medicaid [id number] ANSI-Not a Secondary Insurance [id number] ANSI-Medicaid [id number] ANSI-Not a Secondary Insurance [id number] ANSI-Medicaid [id number] ANSI-Medicaid [id number] ANSI-Not a Secondary Insurance [id number] ANSI-Not a Secondary Insurance [id number] ANSI-Medicaid [id number] ANSI-Not a Secondary Insurance [id number] ANSI-Medicaid [id number] ANSI-Medicaid [id number] ANSI-Not a Secondary Insurance [id number] ANSI-Not a Secondary Insurance [id number] ANSI-Medicaid [id number] ANSI-Not a Secondary Insurance [id number] ANSI-Medicaid [id number] ANSI-Not a Secondary Insurance [id number] ANSI-Medicaid [id number] ANSI-Medicaid [id number] ANSI-Not a Secondary Insurance [id number] ANSI-Medicaid [id number] ANSI-Not a Secondary Insurance [id number] ANSI-Medicaid [id number] ANSI-Not a Secondary Insurance [id number] [employer] Medigap Part B [id number] Self [id number] [place] [employer] Medigap Part B [id number] Self [id number] Medicaid [place] Part B [id number] Self [id number] [facility] Community Plan Commercial [id number] Self [id number] [place] [employer] [place] Workers Compensation [id number] Medicaid [place] Medig[place] Part B [id number] Self [id number] ANSI-Medicaid [id number] ANSI-Not a Secondary Insurance [id number] ANSI-Medicaid [id number] ANSI-Not a Secondary Insurance [id number] ANSI-Not a Secondary Insurance [id number] ANSI-Medicaid [id number] ANSI-Medicaid [id number] ANSI-Not a Secondary Insurance [id number] ANSI-Not a Secondary Insurance [id number] ANSI-Medicaid [id number] ANSI-Medicaid [id number] ANSI-Not a Secondary Insurance [id number] ANSI-Not a Secondary Insurance [id number] ANSI-Medicaid [id number] ANSI-Not a Secondary Insurance [id number] ANSI-Medicaid [id number] ANSI-Not a Secondary Insurance [id number] ANSI-Medicaid [id number] BS [place] Hmo Blue Option Medigap Part B [id number] Self [id number] BS [place] Hmo Blue Option Medigap Part B [id number] Self [id number] [place]ig[place] Part B [id number] Self [id number] [facility] Community Plan Commercial [id number] Self [id number] ANSI-Medicaid [id number] ANSI-Not a Secondary Insurance [id number] ANSI-Medicaid [id number] ANSI-Not a Secondary Insurance [id number] ANSI-Medicaid [id number] ANSI-Not a Secondary Insurance [id number] ANSI-Not a Secondary Insurance [id number] ANSI-Medicaid [id number] ANSI-Medicaid [id number] ANSI-Not a Secondary Insurance [id number] ANSI-Medicaid [id number] ANSI-Not a Secondary Insurance [id number] [facility] Health Maintenance Organization (HMO) [id number] Self [id number] [facility] Comm Plan Medicaid F [id number] SELF [id number] BS [place] Hmo Blue Option Medigap Part B [id number] Self [id number] BS [place] Hmo Blue Option Medigap Part B [id number] Self [id number] [place] Part B [id number] Self [id number] [facility] Community Plan Commercial [id number] Self [id number] UNHC COMMUNITY PLAN MCDHMO [id number] SP [id number] [facility] COMMUNITY PLAN [id number] SP [id number] UNHC COMMUNITY PLAN MCDHMO [id number] SP [id number] [facility] COMMUNITY PLAN [id number] SP [id number] BS [place] Hmo Blue Option Medigap Part B [id number] Self [id number] BS [place] Hmo Blue Option Medigap Part B [id number] Self [id number] [place]ig[place] Part B [id number] Self [id number] [facility] Community Plan Commercial [id number] Self [id number] [facility] MEDICAID [place] HMO [id number] S [id number] UNHC COMMUNITY PLAN MCDHMO [id number] SP [id number] BS [place] Hmo Blue Option Medigap Part B [id number] Self [id number] BS [place] Hmo Blue Option Medigap Part B [id number] Self [id number] [place]ig[place] Part B [id number] Self [id number] [facility] Community Plan Commercial [id number] Self [id number] [facility] MEDICAID [place] HMO [id number] S [id number] [facility] Comm Plan Medicaid F [id number] SELF [id number] [facility] COMMUNITY PLAN [id number] SP [id number] UNHC COMMUNITY PLAN MCDHMO [id number] SP [id number] [facility] Comm Plan Medicaid F [id number] SELF [id number] [place] Hmo Blue Option Medigap Part B [id number] Self [id number] [place] Hmo Blue Option Medigap Part B [id number] Self [id number] [place] Part B [id number] Self [id number] [facility] Community Plan Commercial [id number] Self [id number] BS [place] Hmo Blue Option Medigap Part B [id number] Self [id number] BS [place] Hmo Blue Option Medigap Part B [id number] Self [id number] [place] Part B [id number] Self [id number] [facility] Community Plan Commercial [id number] Self [id number] [facility] HEA [id number] 10 [id number] [facility] [id number] SP [id number] [facility] [id number] SP [id number] UNHC COMMUNITY PLAN MCDHMO [id number] SP [id number] [facility] Comm Plan - Medicaid Medicaid primitivo: [id number] Self primitivo: [id number] BS [place] Hmo Blue Option Medigap Part B Self BS [place] Hmo Blue Option Medigap Part B [id number] Self [id number] [place] B [place] Part B Self [facility] Community Plan Commercial [id number] Self [id number] Medicaid Dental S [id number] S [id number] D Managed Care [facility] P [id number] S [id number] [facility] Community Plan Commercial Self [employer] NO FAULT [id number] SP [id number] [employer] NO FAULT [id number] SP [id number] [facility] I [id number] Self [id number] [facility]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 [id number] S [id number] [employer] O [id number] O [id number] [facility] Community Plan-Caid Medicaid Self Brady Insurance (NF) Workers Compensation [facility] Comm Plan Medicaid F [id number] SELF [id number] [employer] NO FAULT [id number] SP [id number] STATE FARM INS NO FAULT [id number] SP [id number] [employer] [place] [employer] [id number] [facility] I [id number] Self [id number] BLUE CROSS SAINZ PLAN [id number] SP [id number] MEDICAID P [id number] S [id number] EXCELLUS BCBS P [id number] S [id number] HMO BLUE [id number] SP [id number] Problems, Conditions, and Diagnoses Code Display Name Description Problem Type Effective Dates Data Source(s) 11039504 Acute cystitis Acute cystitis Problem 09/04/2019 12:00: 00 AM EDT [facility] ([facility]) N95.1 Menopause Menopausal and female climacteric states Problem 08/08/2019 12:00:00 AM EDT eCW1 ([facility]) [id number] Overactive bladder Overactive bladder Problem 12:00:00 AM EDT [facility] ([facility]) 066508805 Long-term current use of inhaled steroid Long-term current use of inhaled steroid Problem 07/04/2019 12:00:00 AM EDT [facility] ([facility], ) [id number] Long-term current use of systemic steroi d Long-term current use of systemic steroid Problem 07/04/2019 12:00:00 AM EDT [facility] ([facility], ) 59183377 Obstructive sleep apnea syndrome Obstructive sle ep apnea syndrome Problem 07/04/2019 12:00:00 AM EDT [facility] (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 N31.0 - Uninhibited neuropathic bladder, not elsewhere classified Diagnosis 04/07/2020 09:05:00 PM EST [facility] Z87.440 Personal history of urinary (tract) infe ctions Z87.440 - Personal history of urinary (tract) infections Diagnosis 04/07/2020 09:05:00 PM EST [facility] R35.0 Frequency of micturition R35.0 - Frequency of micturit ion Diagnosis 01/10/2020 11:00:00 PM EST [facility] R31.0 Gross hematuria R31.0 - Gross hematuria Diagnosis 1 11:00:00 PM EDT [facility] N39.41 Urge incontinence N39.41 - Urge incontinence Diagnosis 10/11/2019 08:07:00 PM EDT [facility] N30.00 Acute cystitis without hematuria N30.00 - Acute cystitis without hematuria Diagnosis 09/04/2019 08:59:00 PM [facility] Surgeries/Procedures Procedure Description Date Indications Data Source(s) INSJ NON-NDWELLG BLADDER CATHETER 04/07/2020 12:00:00 AM EST [facility] ([facility]) INSJ NON-NDWELLG BLADDER CATHETER 04/07/2020 12:00:00 AM EST [facility] ([facility]) ARTHROCENTESIS ASPIR&/INJECTION MAJOR JT/BURSA 021 12:00:00 AM EST [facility] ([facility] ) INSJ NON-NDWELLG BLADDER CATHETER 01/10/2020 12:00:00 AM EST [facility] ([facility]) BLDR IRRIGATION SMPL LAVAGE&/INSTLJ 12/11/2019 12:00:0 0 AM EDT [facility] ([facility]) CYSTOURETHROSCOPY 12/11/2019 12:00:00 AM EDT [facility] ([facility]) Cystourethroscopy, W/[employer] Cryosurgery Or Laser Garza rg 11/27/2019 12:00:00 AM EDT [facility] ([facility]) Cystourethroscopy,/W Injects For Chemodenervation Of The Leonel dder 11/27/2019 12:00:00 AM EDT [facility] ([facility]) ARTHROCENTESIS ASPIR&/INJECTION MAJOR JT/BURSA 020 12:00:00 AM EDT [facility] ([facility] ) RADIOLOGIC EXAMINATION KNEE 3 VIEWS 10/17/2019 12:00:0 0 AM EDT [facility] ([facility] ) RADIOLOGIC EXAMINATION KNEE 3 VIEWS 10/17/2019 12:00:0 0 AM EDT [facility] ([facility]) INSJ NON-NDWELLG BLADDER CATHETER 10/11/2019 12:00:00 AM EDT [facility] ([facility]) INSJ NON-NDWELLG BLADDER CATHETER 09/04/2019 12:00:00 AM EDT [facility] ([facility]) ARTHROCENTESIS ASPIR&/INJECTION MAJOR JT/BURSA 020 12:00:00 AM EDT [facility] ([facility]) Femur X-ray (procedure) 06/21/2019 10:39:00 AM EDT [facility] X-ray of right knee (procedure) 06/21/2019 10:18:54 AM T [facility] PHYSICIAN TELEPHONE EVALUATION 11-20 MIN 06/08/2019 12 :00:00 AM EDT eCW1 ([facility]) X-ray of right knee (procedure) 05/11/2019 04:50:00 PM [facility] X-ray of right knee (procedure) 05/11/2019 04:50:00 PM [facility] Femur X-ray (procedure) 04/03/2019 04:52:00 PM [facility] Femur X-ray (procedure) 03/29/2019 02:19:33 PM [facility] Femur X-ray (procedure) 03/29/2019 02:19:33 PM [facility] Femur X-ray (procedure) 03/29/2019 02:19:33 PM [facility] Femur X-ray (procedure) 03/29/2019 02:19:33 PM [facility] URINE-NO MICRO 03/23/2019 12:00:00 AM EST eCW1 ([facility]) Femur X-ray (procedure) 03/14/2019 02:46:00 PM [facility] Femur X-ray (procedure) 03/14/2019 02:46:00 PM [facility] Femur X-ray (procedure) 03/14/2019 02:46:00 PM [facility] Femur X-ray (procedure) 03/14/2019 02:46:00 PM [facility] Femur X-ray (procedure) 03/14/2019 02:46:00 PM [facility] Office Visit, Est Pt., Level 4 PC 03/08/2019 12:00:00 AM EST eCW1 ([facility]) Results ID Date Data Source [id number] 04/07/2020 01:30:00 PM EST [facility] ([facility]) Name Value Range Interpretation Code Description Data Tashia rce(s) Supporting Document(s) Bacteria identified in Urine by Culture Laboratory test result EVELYNE ([facility]) <content>Run: 04/09/20 1043 INTERFACED REPORT</content>
<content> ntent>Name: Cassie Jiang Age/Sex: 64/F Location: [facility]</content>
<content>Acct: [id number] Unit: [id number] Status: REG REF Room/Bed:</content>
<content>Re04/07/20 Disch: Junior Dr: Monica Bal MD</content>
<content> </content>
<content></content>
<content>Specimen #: [id number] Ordered : 04/07/2003/27/1856</content>
<content>Collected : 04/07/2003/27/1329 By: [...] REPORT </content>
<content></content> ID Date Data Source [id number] 04/07/2020 01:30:00 PM EST [facility] ([facility]) Name Value Range Interpretation Code Description Data Tashia rce(s) Supporting Document(s) Ua Nitrite Laboratory test result ME DENT ([facility]) Glucose [Presence] in Urine Laboratory test result [facility] ([facility]) Protein [Presence] in Urine by Test strip Laboratory test result [facility] ([facility]) Color of Urine Laboratory test result [facility] ([facility]) Ua Leuko Laboratory test result [facility] ([facility]) Blood [Presence] in Urine by Visual Laboratory test result [facility] ([facility]) Ketones [Presence] in Urine by Test strip Laboratory test result [facility] ([facility]) Clarity of Urine Laboratory test result [facility] ([facility]) pH of Urine by Test strip 5.0 5.0-7.5 [facility] ([facility]) Bilirubin.total [Presence] in Urine by Test strip Laboratory test res ult [facility] ([facility]) Ua Specific Leslie 1.025 1.003-1.030 MEDE NT ([facility]) Urobilinogen [Mass/volume] in Urine by Test strip 0.2 E.U./dL 0.0-1.0 [facility] ([facility]) ID Date Data Source [id number] 04/09/2020 10:42:00 AM [facility] Run: 04/09/20 1043 INTERFACED REPORT Name: Cassie Jiang Age/Sex: 64/F Location: [facility] Acct: [id number] Unit: [id number] Status: REG REF Room/Bed: Re04/07/20 Disch: Att Dr: Monica Bal MD Specimen #: [id number] Ordered : 04/07/2003/27/1856 Collected : 04/07/2003/27/1329 By: [...] rce(s) Supporting Document(s) ID Date Data Source [id number] 04/07/2020 01:23:00 PM EST [facility] ([facility]) Name Value Range Interpretation Code Description Data Tashia rce(s) Supporting Document(s) Ua Nitrite Laboratory test result [facility] D[facility] ([facility]) Glucose [Presence] in Urine Laboratory test result [facility] ([facility]) Protein [Presence] in Urine by Test strip Laboratory test result [facility] ([facility]) Ua Leuko Laboratory test result ME DENT ([facility]) Color of Urine Laboratory test result [facility] ([facility]) Blood [Presence] in Urine by Visual Laboratory test result [facility] ([facility]) Ua Specific Leslie Laboratory test result 1.003-1.030 [facility] ([facility]) Ketones [Presence] in Urine by Test strip Laboratory test result [facility] ([facility]) Clarity of Urine Laboratory test result [facility] ([facility]) Urobilinogen [Mass/volume] in Urine by Test strip 0.2 E.U./dL 0.0-1.0 [facility] ([facility]) pH of Urine by Test strip 5.0 5.0-7.5 [facility] ([facility]) Bilirubin.total [Presence] in Urine by Test strip Laboratory test res ult [facility] ([facility]) ID Date Data Source [id number] 03/26/2020 12:00:00 AM EST MARILIA ([facility]) Name Value Range Interpretation Code Description Data Tashia rce(s) Supporting Document(s) SARS-CoV-2 (COVID-19) RNA [Presence] in Respiratory specimen by PHANI with probe detection negative negative normal Sars-cov-2 MARILIA ([facility]) ID Date Data Source [id number] 03/26/2020 12:00:00 AM EST MAIRLIA ([facility]) Name Value Range Interpretation Code Description Data Tashia rce(s) Supporting Document(s) ID Date Data Source [id number] 03/26/2020 12:00:00 AM EST [facility] Name Value Range Interpretation Code Description Data Tashia rce(s) Supporting Document(s) SARS-CoV-2 NEGATIVE [facility] This lab was ordered by [facility]-COVID19 and reported by [employer]. ID Date Data Source [id number] 03/26/2020 12:00:00 AM EST MARILIA ([facility]) Name Value Range Interpretation Code Description Data Tashia rce(s) Supporting Document(s) SARS-CoV-2 (COVID-19) RNA [Presence] in Respiratory specimen by PHANI with probe detection negative negative normal Sars-cov-2 MARILIA ([facility]) ID Date Data Source [id number] 03/26/2020 12:00:00 AM EST MARILIA ([facility]) Name Value Range Interpretation Code Description Data Tashia rce(s) Supporting Document(s) ID Date Data Source [id number] 03/12/2020 10:08:00 AM EST [facility] Name Value Range Interpretation Code Description Data Tashia rce(s) Supporting Document(s) PDFReport Laboratory test result [facility] ([facility], ) FVC-Pred 3.47 L [facility] ([facility], ) FVC-%Pred-Pre 73 L [facility] ([facility]) FVC-Pre 2.54 L [facility] ([facility]) FVC-LLN 2.73 L [facility] ([facility]) Fev1-%Pred-Pre 72 L [facility] ([facility]) Fev1-Pre 1.92 L [facility] ([facility]) Fev1-Pred 2.67 L [facility] ([facility]) Fev6-Pred 3.34 L [facility] ([facility]) Fev1-LLN 2.04 L [facility] ([facility]) Fev6-%Pred-Pre 75 L [facility] ([facility]) Gwf5lsu-Tenu 77 % [facility] ([facility]) Fev6-Pre 2.51 L [facility] ([facility]) Fev6-LLN 2.62 L [facility] ([facility]) Ejg3hsf-Uyv 76 % [facility] ([facility]) Xmn7eem-%Pred-Pre 97 % [facility] ([facility]) Dcb9htr-ESY 68 % [facility] ([facility]) Rcv5fvh-%Pred-Pre 102 % [facility] ([facility]) Dgr6fil-Miol 96 % [facility] ([facility]) Qwx0apb-Szx 99 % [facility] ([facility]) FEFMax-Pre 5.72 L/E/sec [facility] ([facility]) FEFMax-Pred 6.43 L/E/sec [facility] ([facility]) FEFMax-%Pred-Pre 88 L/E/sec [facility] ([facility]) Lro7985-Nhas 2.34 L/E/sec [facility] ([facility]) FEFMax-LLN 4.61 L/E/sec [facility] ([facility]) Mfz3563-Uax 1.46 L/E/sec [facility] ([facility]) Kma2766-FRA 1.02 L/E/sec [facility] ([facility]) ExpTime-Pre 7.33 sec [facility] ([facility]) Sse0171-%Pred-Pre 62 L/E/sec [facility] ([facility]) Ars9eey6-Pdn 76 % [facility] ([facility]) Fbj0maf3-%Pred-Pre 95 % [facility] ([facility]) Jyz3blj6-Olct 80 % [facility] ([facility]) Nrm1zod0-HKZ 71 % [facility] ([facility]) ID Date Data Source [id number] 01/11/2020 11:49:00 AM EST [facility] Name Value Range Interpretation Code Description Data Tashia rce(s) Supporting Document(s) SAMARA BY DNA PROBE NEGATIVE NEGATIVE [facility] GARDNERELLA BY DNA PROBE POSITIVE NEGATIVE [facility] TRICHOMONAS BY DNA PROBE NEGATIVE NEGATIVE [facility] TESTING PERFORMED BY NUCLEIC ACID HYBRI DIZATION ID Date Data Source [id number] 01/10/2020 02:03:00 PM EST [facility] ([facility]) Name Value Range Interpretation Code Description Data Tashia rce(s) Supporting Document(s) Bacteria identified in Vaginal fluid by Aerobe culture Laborator y test result [facility] ([facility]) ID Date Data Source [id number] 01/10/2020 02:03:00 PM EST [facility] ([facility]) Name Value Range Interpretation Code Description Data Tashia rce(s) Supporting Document(s) Gardnerella By Dna Probe Laboratory test result Abnormal (applies to non- numeric results) [facility] ([facility]) Samara sp rRNA [Presence] in Vaginal fluid by DNA probe Lab oratory test result [facility] ([facility]) Trichomonas vaginalis rRNA [Presence] in Genital speci men by DNA probe Laboratory test result [facility] ([facility]) TESTING PERFORMED BY NUCLEIC ACID HYBRID IZATION ID Date Data Source [id number] 01/12/2020 11:21:00 AM EST [facility] Run: 01/12/20 1121 INTERFACED REPORT Name: Cassie Jiang Age/Sex: 64/F Location: [facility] Acct: [id number] Unit: [id number] Status: REG REF Room/Bed: Re01/10/20 Disch: Att Dr: Amira Garg Specimen #: [id number] Ordered : 01/10/2007/24/1930 Collected : 01/10/2007/24/1401 By: OFFICE Received: 01/10/2007/24/1930 By: GMCRONELL Source: URINE CATH Specimen Description: Procedure Result - COLONY COUNT Final COLONY COUNT LESS THAN 1,000 CFU/ML URINE CULTURE Final NO GROWTH NO GROWTH <18 HOURS NO SIGNIFICANT GROWTH 42 HOURS URINE CULTURE Preliminary (Corrected) NO GROWTH NO GROWTH <18 HOURS END OF REPORT Name Value Range Interpretation Code Description Data Tashia rce(s) Supporting Document(s) ID Date Data Source [id number] 01/10/2020 02:02:00 PM EST [facility] ([facility] Name Value Range Interpretation Code Description Data Tashia rce(s) Supporting Document(s) Bacteria identified in Urine by Culture Laboratory test result [facility] ([facility]) <content> --------</content>
<content>Run: 01/12/20 1121 INTERFACED REPORT</content>
<content> </content>
<content>Name: Cassie Jiang Age/Sex: 64/F Location: [facility]</content>
<content>Acct: [id number] Unit: [id number] Status: REG REF Room/Bed:</content>
<content>Re01/10/20 Disch: Att Dr: Amira Garg</content>
<content> </content>
<content></content>
<content>Specimen #: [id number] Ordered : 01/10/2007/24/1930</content>
<content>Collected : 01/10/2007/24/1401 By: [...] REPORT </content>
<content></content> ID Date Data Source [id number] 01/10/2020 02:01:00 PM EST [facility] ([facility] Name Value Range Interpretation Code Description Data Tashia rce(s) Supporting Document(s) Glucose [Presence] in Urine Laboratory test result [facility] ([facility]) Ua Nitrite Laboratory test result [facility] ([facility]) Ua Leuko Laboratory test result [facility] ([facility]) Protein [Presence] in Urine by Test strip Laboratory test result [facility] ([facility]) Ketones [Presence] in Urine by Test strip 15 mg/dL [facility] ([facility]) Color of Urine Laboratory test result [facility] ([facility]) Blood [Presence] in Urine by Visual Laboratory test result [facility] ([facility]) pH of Urine by Test strip 6.5 5.0-7.5 [facility] ([facility]) Ua Specific Leslie 1.020 1.003-1.030 MEDE NT ([facility]) Clarity of Urine Laboratory test result [facility] ([facility]) Urobilinogen [Mass/volume] in Urine by Test strip 0.2 E.U./dL 0.0-1.0 [facility] ([facility]) Bilirubin.total [Presence] in Urine by Test strip Laboratory test res ult MEDENT ([facility]) ID Date Data Source [id number] 01/10/2020 01:44:00 PM EST MEDENT ([facility]) Name Value Range Interpretation Code Description Data Tashia rce(s) Supporting Document(s) Glucose [Presence] in Urine Laboratory test result MEDENT ([facility]) Ua Nitrite Laboratory test result ME DENT ([facility]) Ua Leuko Laboratory test result ME DENT ([facility]) Protein [Presence] in Urine by Test strip Laboratory test result MEDENT ([facility]) Ketones [Presence] in Urine by Test strip 15 mg/dL MEDENT ([facility]) Color of Urine Laboratory test result MEDENT ([facility]) Blood [Presence] in Urine by Visual Laboratory test result MEDENT ([facility]) Ua Specific Leslie 1.025 1.003-1.030 MEDE NT ([facility]) Clarity of Urine Laboratory test result MEDENT ([facility]) pH of Urine by Test strip 6.0 5.0-7.5 MEDENT ([facility]) Urobilinogen [Mass/volume] in Urine by Test strip 0.2 E.U./dL 0.0-1.0 EVELYNE ([facility]) Bilirubin.total [Presence] in Urine by Test strip Laboratory test res ult EVELYNE ([facility]) ID Date Data Source [id number] 12/13/2019 12:42:00 PM EDT [facility] Run: 12/13/19 1243 INTERFACED REPORT Name: Cassie Jiang Age/Sex: 64/F Location: [facility] Acct: [id number] Unit: [id number] Status: REG REF Room/Bed: Re12/11/19 Disch: Att Dr: Monica Bal MD Specimen #: [id number] Ordered : 12/11/1908/24/2102 Collected : 12/11/1908/25/1547 By: [...] Code Description Data Tashia jaime(s) Supporting Document(s) ID Date Data Source [id number] 12/11/2019 03:48:00 PM EDT MEDREMY ([facility]) Name Value Range Interpretation Code Description Data [facility] Supporting Document(s) Bacteria identified in Urine by Culture Laboratory test result MEDENT ([facility]) <content> --------</content>
<content>Run: 12/13/19 1243 INTERFACED REPORT</content>
<content> </content>
<content>Name: Cassie Jiang Age/Sex: 64/F Location: [facility]</content>
<content>Acct: [id number] Unit: [id number] Status: REG REF Room/Bed:</content>
<content>Re12/11/19 Disch: Junior Dr: Monica Bal MD</content>
<content> </content>
<content></content>
<content>Specimen #: [id number] Ordered : 12/11/1908/24/2102</content>
<content>Collected : 12/11/1908/25/1547 By: [...] REPORT </content>
<content></content> ID Date Data Source [id number] 11/28/2019 12:00:00 AM EDT MARILIA ([facility]) Name Value Range Interpretation Code Description Data Tashia rce(s) Supporting Document(s) ID Date Data Source [id number] 11/28/2019 12:00:00 AM EDT MARILIA ([facility]) Name Value Range Interpretation Code Description Data Tashia rce(s) Supporting Document(s) ID Date Data Source [id number] 11/28/2019 12:00:00 AM EDT MARILIA ([facility]) Name Value Range Interpretation Code Description Data Tashia rce(s) Supporting Document(s) ID Date Data Source [id number] 11/28/2019 12:00:00 AM EDT MARILIA ([facility]) Name Value Range Interpretation Code Description Data Tashia rce(s) Supporting Document(s) ID Date Data Source [id number] 11/28/2019 12:00:00 AM EDT [facility] Name Value Range Interpretation Code Description Data Tashia rce(s) Supporting Document(s) SARS-CoV-2 [facility] This lab was ordered by [facility] and reported by [employer]. ID Date Data Source [id number] 11/28/2019 12:00:00 AM EDT MARILIA ([facility]) Name Value Range Interpretation Code Description Data Tashia rce(s) Supporting Document(s) ID Date Data Source [id number] 11/28/2019 12:00:00 AM EDT MARILIA ([facility]) Name Value Range Interpretation Code Description Data Tashia rce(s) Supporting Document(s) ID Date Data Source [id number] 11/27/2019 11:57:00 AM EDT [facility]ENT ([facility]) Name Value Range Interpretation Code Description Data Tashia rce(s) Supporting Document(s) Protein [Presence] in Urine by Test strip Laboratory test result [facility]ENT ([facility]) Glucose [Presence] in Urine Laboratory test result [facility]ENT ([facility]) Ua Nitrite Laboratory test result ME DENT ([facility]) Color of Urine Laboratory test result MEDENT ([facility]) Ua Leuko Laboratory test result ME DENT ([facility]) Blood [Presence] in Urine by Visual Laboratory test result MEDENT ([facility]) Clarity of Urine Laboratory test result MEDENT ([facility]) Ketones [Presence] in Urine by Test strip Laboratory test result MEDENT ([facility]) Ua Specific Leslie Laboratory test result 1.003-1.030 MEDENT ([facility]) Urobilinogen [Mass/volume] in Urine by Test strip 0.2 E.U./dL 0.0-1.0 MEDENT ([facility]) Bilirubin.total [Presence] in Urine by Test strip Laboratory test res ult MEDENT ([facility]) pH of Urine by Test strip 5.5 5.0-7.5 MEDENT ([facility]) ID Date Data Source [id number] 11/23/2019 12:00:00 AM EDT MARILIA ([facility]) Name Value Range Interpretation Code Description Data Tashia rce(s) Supporting Document(s) ID Date Data Source [id number] 11/23/2019 12:00:00 AM EDT MARILIA ([facility]) Name Value Range Interpretation Code Description Data Tashia rce(s) Supporting Document(s) ID Date Data Source [id number] 11/23/2019 12:00:00 AM EDT MARILIA ([facility]) Name Value Range Interpretation Code Description Data Tashia rce(s) Supporting Document(s) ID Date Data Source [id number] 11/23/2019 12:00:00 AM EDT MARILIA ([facility]) Name Value Range Interpretation Code Description Data Tashia rce(s) Supporting Document(s) ID Date Data Source [id number] 11/23/2019 12:00:00 AM EDT MARILIA ([facility]) Name Value Range Interpretation Code Description Data Tashia rce(s) Supporting Document(s) ID Date Data Source [id number] 11/23/2019 12:00:00 AM EDT [facility] Name Value Range Interpretation Code Description Data Tashia rce(s) Supporting Document(s) SARS-CoV-2 [facility] This lab was ordered by [facility]-COVID19 and reported by [employer]. ID Date Data Source [id number] 11/23/2019 12:00:00 AM EDT MARILIA ([facility]) Name Value Range Interpretation Code Description Data Tashia rce(s) Supporting Document(s) ID Date Data Source [id number] 11/23/2019 12:00:00 AM EDT MARILIA ([facility]) Name Value Range Interpretation Code Description Data Tashia rce(s) Supporting Document(s) ID Date Data Source [id number] 11/02/2019 12:00:00 AM EDT MARILIA ([facility]) Name Value Range Interpretation Code Description Data Tashia rce(s) Supporting Document(s) ID Date Data Source [id number] 11/02/2019 12:00:00 AM EDT MARILIA ([facility]) Name Value Range Interpretation Code Description Data Tashia rce(s) Supporting Document(s) ID Date Data Source [id number] 11/02/2019 12:00:00 AM EDT MRAILIA ([facility]) Name Value Range Interpretation Code Description Data Tashia rce(s) Supporting Document(s) ID Date Data Source [id number] 11/02/2019 12:00:00 AM EDT MARILIA ([facility]) Name Value Range Interpretation Code Description Data Tashia rce(s) Supporting Document(s) ID Date Data Source [id number] 11/02/2019 12:00:00 AM EDT MARILIA ([facility]) Name Value Range Interpretation Code Description Data Tashia rce(s) Supporting Document(s) ID Date Data Source [id number] 11/02/2019 12:00:00 AM EDT MARILIA ([facility]) Name Value Range Interpretation Code Description Data Tashia rce(s) Supporting Document(s) ID Date Data Source [id number] 11/02/2019 12:00:00 AM EDT MARILIA ([facility]) Name Value Range Interpretation Code Description Data Tashia rce(s) Supporting Document(s) ID Date Data Source [id number] 11/02/2019 12:00:00 AM EDT MARILIA ([facility]) Name Value Range Interpretation Code Description Data Tashia rce(s) Supporting Document(s) ID Date Data Source [id number] 11/02/2019 12:00:00 AM EDT [facility] Name Value Range Interpretation Code Description Data Tashia rce(s) Supporting Document(s) SARS-CoV-2 [facility] This lab was ordered by [facility] and reported by [employer]. ID Date Data Source [id number] 11/02/2019 12:00:00 AM EDT MARILIA ([facility]) Name Value Range Interpretation Code Description Data Tashia rce(s) Supporting Document(s) ID Date Data Source [id number] 11/02/2019 12:00:00 AM EDT MARILIA ([facility]) Name Value Range Interpretation Code Description Data Tashia rce(s) Supporting Document(s) ID Date Data Source [id number] 10/11/2019 11:25:00 AM EDT MEDENT ([facility] Name Value Range Interpretation Code Description Data Tashia rce(s) Supporting Document(s) Bacteria identified in Urine by Culture Laboratory test result [facility]ENT ([facility]) <content>Run: 10/13/19 0828 INTERFACED REPORT</content>
<content> ntent>Name: Cassie Jiang Age/Sex: 64/F Location: [facility]</content>
<content>Acct: [id number] Unit: [id number] Status: REG REF Room/Bed:</content>
<content>Re10/11/19 Disch: Junior Dr: Amira Garg</content>
<content> </content>
<content></content>
<content>Specimen #: [id number] Ordered : 10/11/1908/24/1720</content>
<content>Collected : 10/11/1908/24/1124 By: [...] REPORT </content>
<content></content> ID Date Data Source [id number] 10/13/2019 08:27:00 [facility]: 10/13/19 0828 INTERFACED REPORT Name: Cassie Jiang Age/Sex: 64/F Location: [facility] Acct: [id number] Unit: [id number] Status: REG REF Room/Bed: Re10/11/19 Disch: Junior Dr: Amira Garg Specimen #: [id number] Ordered : 10/11/1908/24/1720 Collected : 10/11/1908/24/1124 By: [...] rce(s) Supporting Document(s) ID Date Data Source [id number] 10/11/2019 11:21:00 AM EDOanh STUBBS ([facility]) Name Value Range Interpretation Code Description Data Tashia rce(s) Supporting Document(s) Ua Nitrite Laboratory test result ME DENT ([facility]) Protein [Presence] in Urine by Test strip 30 mg/dL MEDENT ([facility]) Glucose [Presence] in Urine Laboratory test result [facility]ENT ([facility]) Blood [Presence] in Urine by Visual Laboratory test result [facility]ENT ([facility]) Color of Urine Laboratory test result [facility] ([facility]) Ua Leuko Laboratory test result ME DENT ([facility]) Clarity of Urine Laboratory test result [facility]ENT ([facility]) Ua Specific Leslie Laboratory test result 1.003-1.030 MEDENT ([facility]) Ketones [Presence] in Urine by Test strip 15 mg/dL MEDENT ([facility]) pH of Urine by Test strip 5.0 5.0-7.5 MEDENT ([facility]) Bilirubin.total [Presence] in Urine by Test strip Laboratory test res ult MEDENT ([facility]) Urobilinogen [Mass/volume] in Urine by Test strip 0.2 E.U./dL 0.0-1.0 MEDENT ([facility]) ID Date Data Source [id number] 09/06/2019 09:15:00 AM [facility] Run: 09/06/19 0915 INTERFACED REPORT Name: Cassie Jiang Age/Sex: 64/F Location: [facility] Acct: [id number] Unit: [id number] Status: REG REF Room/Bed: Re09/04/19 Disch: Att Dr: Monica Bal MD Specimen #: [id number] Ordered : 09/04/19 Collected : 09/04/19 By: [...] Value Range Interpretation Code Description Data Tashia [facility](s) Supporting Document(s) ID Date Data Source [id number] 09/04/2019 12:10:00 PM EDT EVELYNE ([facility]) Name Value Range Interpretation Code Description Data Tashia e(s) Supporting Document(s) Bacteria identified in Urine by Culture Laboratory test result EVELYNE ([facility]) <content> --------</content>
<content>Run: 09/06/19 0915 INTERFACED REPORT</content>
<content> </content>
<content>Name: Cassie Jiang Age/Sex: 64/F Location: [facility]</content>
<content>Acct: [id number] Unit: [id number] Status: REG REF Room/Bed:</content>
<content>Re09/04/19 Disch: Att Dr: Mnoica Bal MD</content>
<content> </content>
<content></content>
<content>Specimen #: [id number] Ordered : 09/04/19</content>
<content>Collected : 09/04/19 By: [...] REPORT </content>
<content></content> ID Date Data Source [id number] 09/04/2019 12:09:00 PM EDT MEDENT ([facility]) Name Value Range Interpretation Code Description Data Tashia rce(s) Supporting Document(s) Protein [Presence] in Urine by Test strip Laboratory test result MEDENT ([facility]) Ua Nitrite Laboratory test result ME DENT ([facility]) Glucose [Presence] in Urine Laboratory test result MEDENT ([facility]) Ketones [Presence] in Urine by Test strip Laboratory test result MEDENT ([facility]) Ua Leuko Laboratory test result ME DENT ([facility]) Blood [Presence] in Urine by Visual Laboratory test result MEDENT ([facility]) Color of Urine Laboratory test result MEDENT ([facility]) Ua Specific Leslie Laboratory test result 1.003-1.030 MEDENT ([facility]) Clarity of Urine Laboratory test result [facility]ENT ([facility]) pH of Urine by Test strip 5.0 5.0-7.5 MEDENT ([facility]) Bilirubin.total [Presence] in Urine by Test strip Laboratory test res ult MEDENT ([facility]) Urobilinogen [Mass/volume] in Urine by Test strip 0.2 E.U./dL 0.0-1.0 MEDENT ([facility]) ID Date Data Source [id number] 09/04/2019 12:03:00 PM EDT MEDENT ([facility]) Name Value Range Interpretation Code Description Data Tashia rce(s) Supporting Document(s) Protein [Presence] in Urine by Test strip Laboratory test result MEDENT ([facility]) Glucose [Presence] in Urine Laboratory test result MEDENT ([facility]) Blood [Presence] in Urine by Visual Laboratory test result MEDENT ([facility]) Ua Leuko Laboratory test result ME DENT ([facility]) Ua Nitrite Laboratory test result ME DENT ([facility]) Color of Urine Laboratory test result MEDENT ([facility]) Clarity of Urine Laboratory test result MEDENT ([facility]) Ketones [Presence] in Urine by Test strip Laboratory test result MEDENT ([facility]) Ua Specific Leslie Laboratory test result 1.003-1.030 MEDENT ([facility]) Urobilinogen [Mass/volume] in Urine by Test strip 0.2 E.U./dL 0.0-1.0 MEDENT ([facility]) pH of Urine by Test strip 5.0 5.0-7.5 MEDENT ([facility]) Bilirubin.total [Presence] in Urine by Test strip Laboratory test res ult MEDENT ([facility]) ID Date Data Source [id number] 06/21/2019 10:46:00 AM EDT [facility] [address] [place] [address] [phone] NAME SEX PT STATUS ACCOUNT NUMBER CASSIE JIANG REG REF [id number] ORDERING PHYSICIAN LOCATION MEDICAL RECORD NO. Robbi PA-C [facility] [id number] ATTENDING PHYSICIAN DATE OF DATE OF EXAM/TIME [...] Trans Dt/Tm: Trans by: DT Prt Dt/Tm: [phone]: Total DLP = 0.00 mGy-cm Fluoroscopy Time (in secs): Name Value Range Interpretation Code Description Data Tashia rce(s) Supporting Document(s) ID Date Data Source [id number] 06/21/2019 10:44:00 AM EDT [facility] [address] [place] [id number] [phone] NAME SEX PT STATUS ACCOUNT NUMBER CASSIE JIANG REG REF [id number] ORDERING PHYSICIAN LOCATION MEDICAL RECORD NO. Robbi PA-C [facility] [id number] ATTENDING PHYSICIAN DATE OF DATE OF EXAM/TIME [...] Trans Dt/Tm: Trans by: DT Prt Dt/Tm: [phone]: Total DLP = 0.00 mGy-cm Fluoroscopy Time (in secs): Name Value Range Interpretation Code Description Data Tashia rce(s) Supporting Document(s) ID Date Data Source [id number] 06/21/2019 10:43:00 AM EDT [facility] Patient Name: CASSIE JIANG : 1955 Sex: F Pt Unit #: [id number] Location:[facility] Provider: Visit Date/Time: 06/21/19 Primary Insurance: [facility] Secondary Insurance: Self Pay Intake Vital Signs [...] Screening Screening Have you traveled outside of [facility] or [facility] in the last 14 days.: No Has [...] obese Orientation: alert, awake and oriented x3 HENID Head: normal to inspection, normocephalic and atraumatic [...] Unilateral primary osteoarthritis, right knee SNOMED Code(s): [id number] Category: Medical Plan - Cesario Gao MD: Patient is status post retrograde IM [...] rce(s) Supporting Document(s) ID Date Data Source [id number] 05/11/2019 04:51:00 PM [facility] [address] [facility] [place] [address] [phone] NAME SEX PT STATUS ACCOUNT NUMBER CASSIE JIANG REG REF [id number] ORDERING PHYSICIAN LOCATION MEDICAL RECORD NO. Robbi ANTELMO-Keyanna Chang [facility] [id number] ATTENDING PHYSICIAN DATE OF DATE OF EXAM/TIME Kimani Ann 1955 05/11/191649 TYPE / EXAM Xray Knee [...] Trans Dt/Tm: Trans by: DT Prt Dt/Tm: [phone]: Total DLP = 0.00 mGy-cm Fluoroscopy Time (in secs): Name Value Range Interpretation Code Description Data Tashia rce(s) Supporting Document(s) ID Date Data Source [id number] 05/11/2019 03:52:00 PM [facility] Patient Name: CASSIE JIANG : 1955 Sex: F Pt Unit #: [id number] Location:[facility]TH[facility] Provider: Visit Date/Time: 05/11/19 Primary Insurance: [facility] Secondary Insurance: Self Pay Intake Vital Signs [...] to testing today/Pretest education received and acknowledged [facility] Medical History Arthritis (Acute) Asthma (Acute) Ataxia [...] to begin outpatient formal physical therapy in [place]. Recommend additional follow-up in approximately 6 weeks [...] rce(s) Supporting Document(s) ID Date Data Source [id number] 04/03/2019 05:02:00 PM [facility] [address] [place] [id number] [phone] NAME SEX PT STATUS ACCOUNT NUMBER CASSIE JIANG [facility] [id number] ORDERING PHYSICIAN LOCATION MEDICAL RECORD NO. Cesario Gao MD [place] [id number] ATTENDING PHYSICIAN DATE OF DATE OF EXAM/TIME [...] Trans Dt/Tm: Trans by: DT Prt Dt/Tm: [phone]: Total DLP = 0.00 mGy-cm Fluoroscopy Time (in secs): Name Value Range Interpretation Code Description Data Tashia rce(s) Supporting Document(s) ID Date Data Source [id number] 04/03/2019 04:47:00 PM [facility] Name: CASSIE JIANG : 1955 Age: 63 MR#: [id number] Admit Date: 03/29/19 Provider: Cesario Gao MD [...] DA Report Cosigners: D: KAP 04/03/191646 T: JERED 04/03/191646 CC: Name Value Range Interpretation Code Description Data Tashia rce(s) Supporting Document(s) ID Date Data Source [id number] 03/29/2019 02:41:00 PM [facility] Patient Name: CASSIE JIANG : 1955 Sex: F Pt Unit #: [id number] Location:[facility] Provider: Visit Date/Time: 03/29/19 Primary Insurance: [facility] Secondary Insurance: Self Pay Intake Vital Signs [...] to testing today/Pretest education received and acknowledged [facility] Medical History (Updated 03/15/19 @ 07:57 by [...] obese Orientation: alert, awake and oriented x3 HENMT Head: normal to inspection, normocephalic and atraumatic [...] initial encounter for closed fracture SNOMED Code(s): [id number] Category: Medical Plan - Cesario Gao MD: [...] rce(s) Supporting Document(s) ID Date Data Source [id number] 03/29/2019 02:40:00 PM [facility] [address] [facility] [place] [address] [phone] NAME SEX PT STATUS ACCOUNT NUMBER CASSIE JIANG REG REF [id number] ORDERING PHYSICIAN LOCATION MEDICAL RECORD NO. Robbi [place] [facility] [id number] ATTENDING PHYSICIAN DATE OF DATE OF EXAM/TIME [...] Alcides Waldrop MD; Kimani Ann M.D. Techn: [email or web address] Trans Dt/Tm: Trans by: DT Prt Dt/Tm: [phone]: Total DLP = 0.00 mGy-cm Fluoroscopy Time (in secs): Name Value Range Interpretation Code Description Data Tashia rce(s) Supporting Document(s) ID Date Data Source Urinalysis, no micro 03/23/2019 12:00:00 AM EST eCW1 ([facility]) Name Value Range Interpretation Code Description Data Tashia rce(s) Supporting Document(s) 1.010 1.002 - 1.035 Spec gravity eCW1 ([facility]) 6 5.0 - 9.0 pH eCW1 ([facility]) POSITIVE Negative - Nitrate eCW1 ([facility]) NORMAL Negative - mg/dl Glucose eCW1 ([facility]) ++ Negative - Leukocyte eCW1 ([facility]) +++ Negative - mg/dl Protein eCW1 ([facility]) NEGATIVE Normal - mg/dl Urobili eCW1 ([facility]) NEGATIVE Negative - Bilirubin eCW1 ([facility]) NEGATIVE Negative - Blood eCW1 ([facility]) NEGATIVE Negative - mg/dl Ketones eCW1 ([facility]) YES Internal QC Acceptable (Y/N) e CW1 ([facility]) ID Date Data Source [id number] 03/14/2019 03:44:00 PM [facility] [address] [place] [address] [phone] NAME SEX PT STATUS ACCOUNT NUMBER CASSIE JIANG REG REF [id number] ORDERING PHYSICIAN LOCATION MEDICAL RECORD NO. Robbi Chang [facility] [id number] ATTENDING PHYSICIAN DATE OF DATE OF EXAM/TIME [...] Alcides Waldrop MD; Kimani Ann M.D. Techn: [facility] Trans Dt/Tm: Trans by: DT Prt Dt/Tm: [id number]: Total DLP = 0.00 mGy-cm Fluoroscopy Time (in secs): Name Value Range Interpretation Code Description Data Tashia rce(s) Supporting Document(s) ID Date Data Source [id number] 03/14/2019 02:48:00 PM [facility] Patient Name: CASSIE JIANG : 1955 Sex: F Pt Unit #: [id number] Location:AMB.ORTHO Provider: Visit Date/Time: 03/14/19 Primary Insurance: [facility] Secondary Insurance: Self Pay Intake Vital Signs [...] to testing today/Pretest education received and acknowledged [facility] Medical History (Updated 03/15/19 @ 07:57 by [...] due to have home PT starting the 14th. She has seen improvements in her ROM. [...] initial encounter for closed fracture SNOMED Code(s): 086807660 Category: Medical Plan - Robbi Chang PA-C: [...] Patient's pain has surprisingly been controlled with [id number] Tylenol only. She remains on Lovenox for [...] rce(s) Supporting Document(s) ID Date Data Source [id number] 03/06/2019 07:52:00 AM [facility] Name: CASSIE JIANG : 1955 Age: 63 MR#: [id number] Admit Date: 02/19/19 Provider: Mikey Arroyo Room [...] 31.7 L, Lymph % (Auto) 54.5 H, [place] % (Auto) 7.2, Eos % (Auto) 5.8, [...] hypothyroidism, hyperlipidemia and fibromyalgia, who presented to [facility] ED via EMS on 02/19/2019, after a [...] otherwise labs unremarkable. Patient was admitted to [facility] for further monitoring and treatment. TSH found [...] PO Q4H RF: 0 Follow Up Visit/Referrals: [facility] [Outside] - 03/12/19 Discharge Problem: Fracture of [...] 1323 D: H[facility]MAD 03/06/19 075 T: [facility] 03/06/19751 CC: ADDENDUM: During discharge, patient was still [...] by Ellie Jefferson MD> 03/07/19 0949 [facility] T: [facility] 03/06/191609 CC: Name Value Range Interpretation Code Description Data Tashia rce(s) Supporting Document(s) ID Date Data Source [id number] 03/06/2019 07:15:00 AM EST [facility] Name Value Range Interpretation Code Description Data [facility] rce(s) Supporting Document(s) Leukocytes [#/volume] in Blood by Automated count 6.4 10*3/uL 4.45-10 .71 N [facility] Erythrocytes [#/volume] in Blood by Automated count 2.90 10*6/uL 4.20-5.40 Below low normal [facility] Hemoglobin [Moles/volume] in Blood 8.9 g/dL 10.7-15.4 Below low no rmal [facility] Hematocrit [Volume Fraction] of Blood by Automated count 29.0 % 37-47 Below low normal [facility] Erythrocyte mean corpuscular volume [Ent itic volume] in Cord blood by Automated count 100.0 fL 80-96 Above high normal [facility] Erythrocyte mean corpuscular hemoglobin [Entitic mass] by Automated count 30.7 pg 27-31 N [facility] Erythrocyte mean corpuscular hemoglobin concentration [Mass/volume] in Cord blood 30.7 g/dL 33-37 Below low normal [facility] Erythrocyte distribution width [Entitic volume] by Automated cou nt 18 % 11-15 Above high normal [facility] Platelets [#/volume] in Blood by Automated count 462 10*3/uL 130-472 N [facility] Platelet mean volume [Entitic volume] in Blood 9.5 fL 9.1-13.1 N [facility] Neutrophils/100 leukocytes in Blood by Automated count 31.7 % 41-77 Below low normal [facility] Neutrophils [#/volume] in Blood by Automated count 2.0 U 1.7-7.6 N [facility] Lymphocytes/100 leukocytes in Blood by Automated count 54.5 % 14-46 Above high normal [facility] Lymphocytes [#/volume] in Blood by Automated count 3.5 U 0.6-4.6 N [facility] Monocytes/100 leukocytes in Blood by Automated count 7.2 % 4-12 N [facility] Monocytes [#/volume] in Blood by Automated count 0.5 U 0.2-1.2 N [facility] Eosinophils/100 leukocytes in Blood by Automated count 5.8 % 0-7 N [facility] Eosinophils [#/volume] in Blood by Automated count 0.4 U 0.0-0.5 N [facility] Basophils/100 leukocytes in Blood by Automated count 0.6 % 0.4-1 .3 N [facility] Basophils [#/volume] in Blood by Automated count 0.0 U 0.0-0.2 N [facility] NUCLEATED RED BLOOD CELL 0 % [facility] NUCLEATED RED BLOOD CELL# 0 U [facility] Immature granulocytes [Presence] in Blood by Automated count 0-2 N [facility] Immature granulocytes [#/volume] in Blood by Automated count 0.0 U 0-0.1 N [facility] Manual Differential panel - Blood NO [facility] ID Date Data Source [id number] 03/05/2019 09:19:00 AM EST [facility] Name: CASSIE JIANG : 1955 Age: 63 MR#: [id number] Admit Date: 02/19/19 Provider: Mikey Arroyo Room [...] Admit to Inpatient, Acute [STATUS] Routine Location: [facility] Primary diagnosis: s/p femur fracture Isolation: [...] initial encounter for closed fracture SNOMED Code(s): 830210903 Permanent Plan: Continue with OT/ PT. continue with pain management. Continue to monitor surgical sites for signs symptoms of infection. (2) GERD (gastroesophageal reflux disease): Code(s): K21.9 - Gastro-esophageal reflux disease without esophagitis SNOMED Code(s): 464707357 Per manent Plan: Continue with home medication pantoprazole (3) Chronic constipation: Code(s): K59.09 - Other constipation SNOMED Code(s): 663044426 Permanent Plan: Continue to monitor, bowel regimen as ordered (4) Hypothyroid: Code(s): E03.9 - Hypothyroidism, unspecified SNOMED Code(s): 08207541 Permanent Plan: Continue with levothyroxine (5) Type 2 diabetes mellitus: Code(s): E11.9 - Type 2 diabetes mellitus without complications SNOMED Code(s): 29569915 Permanent Plan: Accu-Cheks AC at bedtime with sliding scale coverage as well as Januvia. Add Metformin 750 mg BID was on 850 mg BID at home. Resume glimepiride. Consistant carb diet. (6) Hyperlipidemia: Code(s): E78.5 - Hyperlipidemia, unspecified SNOMED Code(s): 38455788 Permanent Plan: Continue home medication pravastatin (7) Fibromyalgia: Code(s): M79.7 - Fibromyalgia SNOMED Code(s): 418805822 Permanent Plan: Gabapentin, Cymbalta andClonazepam (8) Depression: Code(s): F32.9 - Major depressive disorder, single episode, unspecified SNOMED Code(s): 28336076 Permanent Plan: Cymbalta, Lexapro, Clonazepam. Resume home nortriptyline (9) Chronic pain: Code(s): G89.29 - Other chronic pain SNOMED Code(s): 70925456 Permanent Plan: Baclofen and Flexeril for back spasms, Gabapentin for neuropathy, oxycodone 1 to 2 tablets every 4 hours for acute, Voltaren topical and home dose of prednisone 10 mg daily (10) Insomnia: Code(s): G47.00 - Insomnia, unspecified SNOMED Code(s): 423409247 Permanent Plan: Home dose Rozerem (11) Bilateral lower extremity edema: Code(s): R60.0 - Localized edema SNOMED Code(s): 183967120 Permanent Plan: Patient was on low dose [...] rce(s) Supporting Document(s) ID Date Data Source [id number] 03/05/2019 07:08:00 AM [facility] Name Value Range Interpretation Code Description Data Tashia rce(s) Supporting Document(s) Urea nitrogen [Mass/volume] in Serum or Plasma 10 mg/dL 9-23 N [facility] Sodium [Moles/volume] in Serum or Plasma 144 mmol/L 132-146 N [facility] Potassium [Moles/volume] in Serum or Plasma 4.0 mmol/L 3.5-5.5 [facility] Chloride [Moles/volume] in Serum or Plasma 111 mmol/L 99-109 Above high normal [facility] Carbon dioxide, total [Moles/volume] in Serum or Plasma 26 mmol/L 20 -31 [facility] Anion gap in Serum or Plasma 11 mmol/L 8-16 [facility] Glucose [Mass/volume] in Serum or Plasma 47 mg/dL 74-106 Below low normal [facility] @Review & document.Repeated by: Sury Davenport 03/05/19 0708.Result Confirmation: 47 mg/dL Creatinine 0.5 mg/dL 0.5-1.1 [facility] Glomerular filtration rate/1.73 sq M.pre dicted [Volume Rate/Area] in Serum or Plasma Greater Than 60 ABOVE 60 [facility] Calcium [Mass/volume] in Serum or Plasma 8.6 mg/dL 8.5-10.1 [facility] ID Date Data Source [id number] 03/04/2019 11:52:00 AM [facility] Name: CASSIE JIANG : 1955 Age: 63 MR#: [id number] Admit Date: 02/19/19 Provider: Mariah Shepherd NP [...] Admit to Inpatient, Acute [STATUS] Routine Location: [facility] Primary diagnosis: s/p femur fracture Isolation: [...] initial encounter for closed fracture SNOMED Code(s): 943313532 Permanent Plan: Continue with OT/ PT. continue with pain management. Continue to monitor surgical sites for signs symptoms of infection. (2) GERD (gastroesophageal reflux disease): Code(s): K21.9 - Gastro-esophageal reflux disease without esophagitis SNOMED Code(s): 257600407 Permanent Plan: Continue with home medication pantoprazole (3) Chronic constipation: Code(s): K59.09 - Other constipation SNOMED Code(s): 594353785 Permanent Plan: Continue to monitor, bowel regimen as ordered (4) Hypothyroid: Code(s): E03.9 - Hypothyroidism, unspecified SNOMED Code(s): 77957375 Permanent Plan: Continue with levothyroxine (5) Type 2 diabetes mellitus: Code(s): E11.9 - Type 2 diabetes mellitus without complications SNOMED Code(s): 30305968 Permanent Plan: Accu-Cheks AC at bedtime with sliding scale coverage as well as Januvia. Add Metformin 750 mg BID was on 850 mg BID at home. Resume glimepiride. Consistant carb diet. ( 6) Hyperlipidemia: Code(s): E78.5 - Hyperlipidemia, unspecified SNOMED Code(s): 27651492 Permanent Plan: Continue home medication pravastatin (7) Fibromyalgia: Code(s): M79.7 - Fibromyalgia SNOMED Code(s): 222515663 Permanent Plan: Gabapentin, Cymbalta andClonazepam (8) Depression: Code(s): F32.9 - Major depressive disorder, single episode, unspecified SNOMED Code(s): 99736932 Permanent Plan: Cymbalta, Lexapro, Clonazepam. Resume home nortriptyline (9) Chronic pain: Code(s): G89.29 - Other chronic pain SNOMED Co de(s): 48980409 Permanent Plan: Baclofen and Flexeril for back spasms, Gabapentin for neuropathy, oxycodone 1 to 2 tablets every 4 hours for acute, Voltaren topical and home dose of prednisone 10 mg daily (10) Insomnia: Code(s): G47.00 - Insomnia, unspecified SNOMED Code(s): 629541536 Permanent Plan: Home dose Rozerem (11) Bilateral lower extremity edema: Code(s): R60.0 - Localized edema SNOMED Code(s): 468611900 Permanent Plan: Patient was on low dose [...] rce(s) Supporting Document(s) ID Date Data Source [id number] 03/03/2019 02:24:00 PM [facility] Name: CASSIE JIANG : 1955 Age: 63 MR#: [id number] Admit Date: 02/19/19 Provider: Mariah Shepherd NP [...] Admit to Inpatient, Acute [STATUS] Routine Location: [facility] Primary diagnosis: s/p femur fracture Isolation: [...] % (Auto) 43.8, Lymph % (Auto) 43.1, [place] % (Auto) 6.3, Eos % (Auto) 6.0, [...] brisk and other (Decreased ROM right knee, [place] right groin and right knee INDRA without erythema. Sutures right knee INDRA no erythema); negative for calf tenderness Skin: [...] initial encounter for closed fracture SNOMED Code(s): 912865761 Permanent Plan: Continue with OT/ PT. continue with pain management and trending labs for anemia postop. Continue to monitor surgical sites for signs symptoms of infection. (2) GERD (gastroesophageal reflux disease): Code(s): K21.9 - Gastro-esophageal reflux disease without esophagitis SNOMED Code(s): 784299537 Permanent Plan: Continue with home medication pantoprazole (3) Chronic constipation: Code(s): K59.09 - Other constipation SNOMED Code(s): 507393862 Permanent Plan: Continue to monitor, bowel regimen as ordered (4) Hypothyroid: Code(s): E03.9 - Hypothyroidism, unspecified SNOMED Code(s): 77459626 Permanent Plan: Continue with levothyroxine (5) Type 2 diabetes mellitus: Code(s): E11.9 - Type 2 diabetes mellitus without complications SNOMED Code(s): 74059383 Permanent Plan: Accu-Cheks AC at bedtime with sliding scale coverage as well as Januvia. Add Metformin 750 mg BID was on 850 mg BID at home. She was also on alogliptin at home which is nonformulary here. Consistant carb diet. (6) Hyperlipidemia: Code(s): E78.5 - Hyperlipidemia, unspecified SNOMED Code(s): 77940638 Permanent Plan: Continue home medication pravastatin (7) Fibromyalgia: Code(s): M79.7 - Fibromyalgia SNOMED Code(s): 303121953 Permanent Plan: Gabapentin and Cymbalta. Resume home dose of Clonazepam (8) Depression: Code(s): F32.9 - Major depressive disorder, single episode, unspecified SNOMED Code(s): 46893191 Permanent Plan: Cymbalta and Lexapro, Rozerem for insomnia. Resume Clonazepam (9) Chronic pain: Code(s): G89.29 - Other chronic pain SNOMED Code(s): 93794066 Permanent Plan: Baclofen and Flexeril for back [...] Value Range Interpretation Code Description Data Tashia rcjaime(s) Supporting Document(s) ID Date Data Source [id number] 03/03/2019 06:49:00 AM EST [facility] Name Value Range Interpretation Code Description Data Tashia rce(s) Supporting Document(s) Leukocytes [#/volume] in Blood by Automated count 8.8 10*3/uL 4.45-10 .71 N [facility] Erythrocytes [#/volume] in Blood by Automated count 2.78 10*6/uL 4.20-5.40 Below low normal [facility] Hemoglobin [Moles/volume] in Blood 8.3 g/dL 10.7-15.4 Below low no rmal [facility] Hematocrit [Volume Fraction] of Blood by Automated count 26.8 % 37-47 Below low normal [facility] Erythrocyte mean corpuscular volume [Ent itic volume] in Cord blood by Automated count 96.4 fL 80-96 Above high normal [facility] Erythrocyte mean corpuscular hemoglobin [Entitic mass] by Automated count 29.9 pg 27-31 N [facility] Erythrocyte mean corpuscular hemoglobin concentration [Mass/volume] in Cord blood 31.0 g/dL 33-37 Below low normal [facility] Erythrocyte distribution width [Entitic volume] by Automated cou nt 17 % 11-15 Above high normal [facility] Platelets [#/volume] in Blood by Automated count 504 10*3/uL 130-472 Above high normal [facility] Platelet mean volume [Entitic volume] in Blood 9.3 fL 9.1-13.1 N [facility] Neutrophils/100 leukocytes in Blood by Automated count 43.8 % 41- 77 N [facility] Neutrophils [#/volume] in Blood by Automated count 3.9 U 1.7-7.6 N [facility] Lymphocytes/100 leukocytes in Blood by Automated count 43.1 % 14- 46 N [facility] Lymphocytes [#/volume] in Blood by Automated count 3.8 U 0.6-4.6 N [facility] Monocytes/100 leukocytes in Blood by Automated count 6.3 % 4-12 N [facility] Monocytes [#/volume] in Blood by Automated count 0.6 U 0.2-1.2 N [facility] Eosinophils/100 leukocytes in Blood by Automated count 6.0 % 0-7 N [facility] Eosinophils [#/volume] in Blood by Automated count 0.5 U 0.0-0.5 N [facility] Basophils/100 leukocytes in Blood by Automated count 0.5 % 0.4-1 .3 N [facility] Basophils [#/volume] in Blood by Automated count 0.0 U 0.0-0.2 N [facility] NUCLEATED RED BLOOD CELL 0 % [facility] NUCLEATED RED BLOOD CELL# 0 U [facility] Immature granulocytes [Presence] in Blood by Automated count 0-2 N [facility] Immature granulocytes [#/volume] in Blood by Automated count 0.0 U 0-0.1 N [facility] Manual Differential panel - Blood NO [facility] ID Date Data Source [id number] 03/03/2019 07:26:00 AM EST [facility] Name Value Range Interpretation Code Description Data Tashia rce(s) Supporting Document(s) Urea nitrogen [Mass/volume] in Serum or Plasma 12 mg/dL 9-23 N [facility] Sodium [Moles/volume] in Serum or Plasma 143 mmol/L 132-146 N [facility] Potassium [Moles/volume] in Serum or Plasma 4.1 mmol/L 3.5-5.5 [facility] Chloride [Moles/volume] in Serum or Plasma 110 mmol/L 99-109 Above high normal [facility] Carbon dioxide, total [Moles/volume] in Serum or Plasma 27 mmol/L 20 -31 N [facility] Anion gap in Serum or Plasma 10 mmol/L 8-16 [facility] Glucose [Mass/volume] in Serum or Plasma 104 mg/dL 74-106 N [facility] Creatinine 0.6 mg/dL 0.5-1.1 [facility] Glomerular filtration rate/1.73 sq M.pre dicted [Volume Rate/Area] in Serum or Plasma Greater Than 60 ABOVE 60 [facility] Alanine aminotransferase [Enzymatic acti vity/volume] in Serum or Plasma by With P-5'-P 18 U/L 10-49 N [facility] ital Aspartate aminotransferase [Enzymatic ac tivity/volume] in Serum or Plasma by With P-5'-P 12 U/L 0-33 N [facility] pital Alkaline phosphatase [Enzymatic activity/volume] in Serum or Plasma 117 U/L 45-129 N [facility] Calcium [Mass/volume] in Serum or Plasma 8.6 mg/dL 8.5-10.1 N [facility] Bilirubin.total [Mass/volume] in Serum or Plasma 0.6 mg/dL 0.3-1.2 [facility] Albumin [Mass/volume] in Serum or Plasma by Bromocresol purple (BCP) dye binding method 2.7 g/dL 3.2-4.8 Below low normal [facility] Protein [Mass/volume] in Serum or Plasma 5.8 g/dL 5.7-8.2 [facility] ID Date Data Source [id number] 03/02/2019 04:15:00 PM [facility] Name: CASSIE JIANG : 1955 Age: 63 MR#: [id number] Admit Date: 02/19/19 Provider: Celena Matute Room [...] Admit to Inpatient, Acute [STATUS] Routine Location: [facility] Primary diagnosis: s/p femur fracture Isolation: [...] (Auto) 40.0 L, Lymph % (Auto) 43.7, [place] % (Auto) 8.7, Eos % (Auto) 6.8, [...] initial encounter for closed fracture SNOMED Code(s): 024586196 Permanent Plan: Continue with OT/ PT. continue with pain management and trending labs for anemia postop. C ontinue to monitor surgical sites for signs symptoms of infection. explore short-term rehabilitation options (2) GERD (gastroesophageal reflux disease): Code(s): K21.9 - Gastro-esophageal reflux disease without esophagitis SNOMED Code(s): 562583519 Permanent Plan: Continue with home medication pantoprazole (3) Chronic constipation: Code(s): K59.09 - Other constipation SNOMED Code(s): 771409190 Permanent Plan: Continue to monitor, bowel regime as ordered (4) Hypothyroid: Code(s): E03.9 - Hypothyroidism, unspecified SNOMED Code(s): 57491902 Permanent Plan: Continue with levothyroxine (5) Type 2 diabetes mellitus: Code(s): E11.9 - Type 2 diabetes mellitus without complications SNOMED Code(s): 41873255 Permanent Plan: Accu-Cheks AC at bedtime with sliding scale coverage as well as Januvia. Consistant carb diet. (6) Hyperlipidemia: Code(s): E78.5 - Hyperlipidemia, unspecified SNOMED Code(s): 20722103 Permanent Plan: Continue home medication pravastatin (7) Fibromyalgia: Code(s): M79.7 - Fibromyalgia SNOMED Code(s): 142550845 Permanent Plan: Gabapentin and Cymbalta (8) Depression: Code(s): F32.9 - Major depressive disorder, single episode, unspecified SNOMED Code(s): 88683428 Permanent Plan: Cymbalta and Lexapro, Rozerem for insomnia (9) Chronic pain: Code(s): G89.29 - Other chronic pain SNOMED Code(s): 69849530 Permanent Plan: Baclofen and Flexeril for back [...] rce(s) Supporting Document(s) ID Date Data Source [id number] 03/02/2019 06:24:00 AM EST [facility] Name Value Range Interpretation Code Description Data Tashia rce(s) Supporting Document(s) Leukocytes [#/volume] in Blood by Automated count 7.4 10*3/uL 4.45-10 .71 N [facility] Erythrocytes [#/volume] in Blood by Automated count 2.72 10*6/uL 4.20-5.40 Below low normal [facility] Hemoglobin [Moles/volume] in Blood 8.1 g/dL 10.7-15.4 Below low no rmal [facility] Hematocrit [Volume Fraction] of Blood by Automated count 27.5 % 37-47 Below low normal [facility] Erythrocyte mean corpuscular volume [Ent itic volume] in Cord blood by Automated count 101.1 fL 80-96 [facility] ital Repeated by: Sury Davenport 03/02/19 062 3.Result Confirmation: 100.7 fl Erythrocyte mean corpuscular hemoglobin [Entitic mass] by Automated count 29.8 pg 27-31 [facility] l Erythrocyte mean corpuscular hemoglobin concentration [Mass/volume] in Cord blood 29.5 g/dL 33-37 Below low normal [facility] Erythrocyte distribution width [Entitic volume] by Automated cou nt 17 % 11-15 Above high normal [facility] Platelets [#/volume] in Blood by Automated count 432 10*3/uL 130-472 [facility] Platelet mean volume [Entitic volume] in Blood 9.5 fL 9.1-13.1 [facility] Neutrophils/100 leukocytes in Blood by Automated count 40.0 % 41-77 Below low normal [facility] Neutrophils [#/volume] in Blood by Automated count 3.0 U 1.7-7.6 N [facility] Lymphocytes/100 leukocytes in Blood by Automated count 43.7 % 14- 46 N [facility] Lymphocytes [#/volume] in Blood by Automated count 3.2 U 0.6-4.6 N [facility] Monocytes/100 leukocytes in Blood by Automated count 8.7 % 4-12 N [facility] Monocytes [#/volume] in Blood by Automated count 0.6 U 0.2-1.2 N [facility] Eosinophils/100 leukocytes in Blood by Automated count 6.8 % 0-7 N [facility] Eosinophils [#/volume] in Blood by Automated count 0.5 U 0.0-0.5 N [facility] Basophils/100 leukocytes in Blood by Automated count 0.5 % 0.4-1 .3 N [facility] Basophils [#/volume] in Blood by Automated count 0.0 U 0.0-0.2 N [facility] NUCLEATED RED BLOOD CELL 0 % [facility] NUCLEATED RED BLOOD CELL# 0 U [facility] Immature granulocytes [Presence] in Blood by Automated count 0-2 N [facility] Immature granulocytes [#/volume] in Blood by Automated count 0.0 U 0-0.1 N [facility] Manual Differential panel - Blood NO [facility] ID Date Data Source [id number] 03/02/2019 06:45:00 AM EST [facility] Name Value Range Interpretation Code Description Data Tashia rce(s) Supporting Document(s) Urea nitrogen [Mass/volume] in Serum or Plasma 12 mg/dL 9-23 N [facility] Sodium [Moles/volume] in Serum or Plasma 143 mmol/L 132-146 N [facility] Potassium [Moles/volume] in Serum or Plasma 4.1 mmol/L 3.5-5.5 N [facility] Chloride [Moles/volume] in Serum or Plasma 110 mmol/L 99-109 Above high normal [facility] Carbon dioxide, total [Moles/volume] in Serum or Plasma 27 mmol/L 20 -31 N [facility] Anion gap in Serum or Plasma 10 mmol/L 8-16 [facility] Glucose [Mass/volume] in Serum or Plasma 105 mg/dL 74-106 N [facility] Creatinine 0.5 mg/dL 0.5-1.1 [facility] Glomerular filtration rate/1.73 sq M.pre dicted [Volume Rate/Area] in Serum or Plasma Greater Than 60 ABOVE 60 [facility] Alanine aminotransferase [Enzymatic acti vity/volume] in Serum or Plasma by With P-5'-P 18 U/L 10-49 N [facility] ital Aspartate aminotransferase [Enzymatic ac tivity/volume] in Serum or Plasma by With P-5'-P 16 U/L 0-33 N [facility] pital Alkaline phosphatase [Enzymatic activity/volume] in Serum or Plasma 98 U/L 45-129 [address] [facility] Calcium [Mass/volume] in Serum or Plasma 8.5 mg/dL 8.5-10.1 [facility] Bilirubin.total [Mass/volume] in Serum or Plasma 0.7 mg/dL 0.3-1.2 [facility] Albumin [Mass/volume] in Serum or Plasma by Bromocresol purple (BCP) dye binding method 2.6 g/dL 3.2-4.8 Below low normal [facility] Protein [Mass/volume] in Serum or Plasma 5.2 g/dL 5.7-8.2 Below low normal [facility] ID Date Data Source [id number] 03/02/2019 06:45:00 AM [facility] Name Value Range Interpretation Code Description Data Tashia rce(s) Supporting Document(s) Phosphate [Mass/volume] in Serum or Plasma 4.4 mg/dL 2.4-5.1 [facility] ID Date Data Source [id number] 03/02/2019 06:45:00 AM [facility] Name Value Range Interpretation Code Description Data Tashia rce(s) Supporting Document(s) Magnesium [Mass/volume] in Serum or Plasma 2.2 mg/dL 1.3-2.7 [facility] ID Date Data Source [id number] 03/01/2019 11:23:00 AM [facility] Name: CASSIE JIANG : 1955 Age: 63 MR#: [id number] Admit Date: 02/19/19 Provider: Celena Matute Room #: 293 Consulting Provider: Cesario Gao MD Dictation Date: 02/05 08/23 ProgressNote Subjective-ROS Date of service Date of service:: 03/01/19 Review of Systems ROS (Free Text/Narrative):: The patient is seen and examined. Chart is reviewed. She reported to me a complaint against some of the shank taper nursing as regard to the way one of them spoke to her. Itook it to the nurse manager general and she worked on the complaint. The patient had questions about her pain meds. which was clarified by me and Dr. Goldman as regard to her needs and the risks with increasing frequency or doses of pain medications. All her questions were answered. The patient toldme her first choice for rehab is the [facility], then our [facility]p facility. She needs short termrehab. The patient keeps working with the PT/OT and have progress that way. I discussed her case with the RT and she needs sleep study for NCIKI, which could be done as outpatient with [...] Admit to Inpatient, Acute [STATUS] Routine Location: [facility] Primary diagnosis: s/p femur fracture Isolation: [...] 32.4 L, Lymph % (Auto) 51.3 H, [place] % (Auto) 6.7, Eos % (Auto) 8.4 [...] initial encounter for closed fracture SNOMED Code(s): 930476446 Permanent Plan: Continue with OT/ PT. continue with pain management and trending labs for anemia postop. Continue to monitor surgical sites for signs symptoms of infection. explore short-term rehabilitation options (2) GERD (gastroesophageal reflux disease): Code(s): K21.9 - Gastro-esophageal reflux disease without esophagitis SNOMED Code(s): 516818843 Permanent Plan: Continue with home medication pantoprazole (3) Chronic constipation: Code(s): K59.09 - Other constipation SNOMED Code(s): 243502179 Permanent Plan: Continue to monitor, bowel regime as ordered (4) Hypothyroid: Code(s): E03.9 - Hypothyroidism, unspecified SNOMED Code(s): 44272380 Permanent Plan: Continue with levothyroxine (5) Type 2 diabetes mellitus: Code(s): E11.9 - Type 2 diabetes mellitus without complications SNOMED Code(s): 49410742 Permanent Plan: Accu-Cheks AC at bedtime with sliding scale coverage as well as Januvia. Consistant carb diet. (6) Hyperlipidemia: Code(s): E78.5 - Hyperlipidemia, unspecified SNOMED Code(s): 49109122 Permanent Plan: Continue home medication pravastatin (7) Fibromyalgia: Code(s): M79.7 - Fibromyalgia SNOMED Code(s): 802438602 Permanent Plan: Gabapentin and Cymbalta (8) Depression: Code(s): F32.9 - Major depressive disorder, single episode, unspecified SNOMED Code(s): 11169775 Permanent Plan: Cymbalta and Lexapro, Rozerem for insomnia (9) Chronic pain: Code(s): G89.29 - Other chronic pain SNOMED Code(s): 26476223 Permanent Plan: Baclofen and Flex eril for [...] The patient needs short term rehab. The social media developer is waiting to her from [facility] for rehab admission (per the patient's first choice) otherwise she will work on admitting her to out usp here for short term rehab (the patient's second choice) The patient's ambulation is improving and she keeps working with the PT/OT team Pain medications and doses were discussed with the patient and she agrees with the plan of care The patient's complaints about nursing staff was addressed with the nurse manager general who discussed it with the patient Continue [...] rce(s) Supporting Document(s) ID Date Data Source [id number] 03/01/2019 06:05:00 AM EST [facility] Name Value Range Interpretation Code Description Data Tashia rce(s) Supporting Document(s) Leukocytes [#/volume] in Blood by Automated count 8.3 10*3/uL 4.45-10 .71 [facility] Erythrocytes [#/volume] in Blood by Automated count 2.67 10*6/uL 4.20-5.40 Below low normal [facility] Hemoglobin [Moles/volume] in Blood 8.0 g/dL 10.7-15.4 Below low no rmal [facility] Hematocrit [Volume Fraction] of Blood by Automated count 25.6 % 37-47 Below low normal [facility] Erythrocyte mean corpuscular volume [Ent itic volume] in Cord blood by Automated count 95.9 fL 80-96 N [facility] Erythrocyte mean corpuscular hemoglobin [Entitic mass] by Automated count 30.0 pg 27-31 N [facility] l Erythrocyte mean corpuscular hemoglobin concentration [Mass/volume] in Cord blood 31.3 g/dL 33-37 Below low normal [facility] Erythrocyte distribution width [Entitic volume] by Automated cou nt 16 % 11-15 Above high normal [facility] Platelets [#/volume] in Blood by Automated count 460 10*3/uL 130-472 N [facility] Platelet mean volume [Entitic volume] in Blood 9.6 fL 9.1-13.1 N [facility] Neutrophils/100 leukocytes in Blood by Automated count 32.4 % 41-77 Below low normal [facility] Neutrophils [#/volume] in Blood by Automated count 2.7 U 1.7-7.6 N [facility] Lymphocytes/100 leukocytes in Blood by Automated count 51.3 % 14-46 Above high normal [facility] Lymphocytes [#/volume] in Blood by Automated count 4.3 U 0.6-4.6 N [facility] Monocytes/100 leukocytes in Blood by Automated count 6.7 % 4-12 N [facility] Monocytes [#/volume] in Blood by Automated count 0.6 U 0.2-1.2 N [facility] Eosinophils/100 leukocytes in Blood by Automated count 8.4 % 0-7 Above high normal [facility] Eosinophils [#/volume] in Blood by Automated count 0.7 U 0.0-0.5 Above high normal [facility] Basophils/100 leukocytes in Blood by Automated count 0.8 % 0.4-1 .3 N [facility] Basophils [#/volume] in Blood by Automated count 0.1 U 0.0-0.2 N [facility] NUCLEATED RED BLOOD CELL 0 % [facility] NUCLEATED RED BLOOD CELL# 0 U [facility] Immature granulocytes [Presence] in Blood by Automated count 0-2 N [facility] Immature granulocytes [#/volume] in Blood by Automated count 0.0 U 0-0.1 N [facility] Manual Differential panel - Blood NO [facility] ID Date Data Source [id number] 03/01/2019 06:35:00 AM EST [facility] Name Value Range Interpretation Code Description Data Tashia rce(s) Supporting Document(s) Urea nitrogen [Mass/volume] in Serum or Plasma 17 mg/dL 9-23 N [facility] Sodium [Moles/volume] in Serum or Plasma 142 mmol/L 132-146 N [facility] Potassium [Moles/volume] in Serum or Plasma 4.4 mmol/L 3.5-5.5 [facility] Chloride [Moles/volume] in Serum or Plasma 108 mmol/L 99-109 [facility] Carbon dioxide, total [Moles/volume] in Serum or Plasma 27 mmol/L 20 -31 [facility] Anion gap in Serum or Plasma 11 mmol/L 8-16 [facility] Glucose [Mass/volume] in Serum or Plasma 122 mg/dL 74-106 Above high normal [facility] Creatinine 0.6 mg/dL 0.5-1.1 [facility] Glomerular filtration rate/1.73 sq M.pre dicted [Volume Rate/Area] in Serum or Plasma Greater Than 60 ABOVE 60 [facility] Alanine aminotransferase [Enzymatic acti vity/volume] in Serum or Plasma by With P-5'-P 19 U/L 10-49 [facility] ital Aspartate aminotransferase [Enzymatic ac tivity/volume] in Serum or Plasma by With P-5'-P 13 U/L 0-33 [facility] pital Alkaline phosphatase [Enzymatic activity/volume] in Serum or Plasma 113 U/L 45-129 [facility] Calcium [Mass/volume] in Serum or Plasma 8.5 mg/dL 8.5-10.1 [facility] Bilirubin.total [Mass/volume] in Serum or Plasma 0.6 mg/dL 0.3-1.2 [facility] Albumin [Mass/volume] in Serum or Plasma by Bromocresol purple (BCP) dye binding method 2.7 g/dL 3.2-4.8 Below low normal [facility] Protein [Mass/volume] in Serum or Plasma 5.8 g/dL 5.7-8.2 [facility] ID Date Data Source [id number] 03/01/2019 06:35:00 AM [facility] Name Value Range Interpretation Code Description Data Tashia rce(s) Supporting Document(s) Phosphate [Mass/volume] in Serum or Plasma 4.0 mg/dL 2.4-5.1 [facility] ID Date Data Source [id number] 03/01/2019 06:35:00 AM [facility] Name Value Range Interpretation Code Description Data Tashia rce(s) Supporting Document(s) Magnesium [Mass/volume] in Serum or Plasma 2.1 mg/dL 1.3-2.7 N [facility] ID Date Data Source [id number] 02/28/2019 11:04:00 AM EST [facility] Name: CASSIE JIANG : 1955 Age: 63 MR#: [id number] Admit Date: 02/19/19 Provider: Fallon Lerma NP [...] to go to a rehabilitation center in [facility] where her family is present. He stated [...] Admit to Inpatient, Acute [STATUS] Routine Location: [facility] Primary diagnosis: s/p femur fracture Isolation: [...] 34.7 L, Lymph % (Auto) 46.5 H, [place] % (Auto) 7.5, Eos % (Auto) 10.2 [...] initial encounter for closed fracture SNOMED Code(s): 270900488 Permanent Plan: Continue with OT/ PT. continue with pain management and trending labs for anemia postop. Continue to monitor surgical sites for signs symptoms of infection. explore short-term rehabilitation options (2) GERD (gastroesophageal reflux disease): Code(s): K21.9 - Gastro-esophageal reflux disease without esophagitis SNOMED Code(s): 301413914 Permanent Plan: Continue with home medication pantoprazole (3) Chronic constipation: Code(s): K59.09 - Other constipation SNOMED Code(s): 713591792 Permanent Plan: Continue to monitor, bowel regime as ordered (4) Hypothyroid: Code(s): E03.9 - Hypothyroidism, unspecified SNOMED Code(s): 65358542 Permanent Plan: Continue with levothyroxine (5) Type 2 diabetes mellitus: Code(s): E11.9 - Type 2 diabetes mellitus without complications SNOMED Code(s): 27510156 Permanent Plan: Accu-Cheks AC at bedtime with sliding scale coverage as well as Januvia. Consistant carb diet. (6) Hyperlipidemia: Code(s): E78.5 - Hyperlipidemia, unspecified SNOMED Code(s): 74722801 Permanent Plan: Continue home medication pravastatin (7) Fibromyalgia: Code(s): M79.7 - Fibromyalgia SNOMED Code(s): 114372455 Permanent Plan: Gabapentin and Cymbalta (8) Depression: Code(s): F32.9 - Major depressive disorder, single episode, unspecified SNOMED Code(s): 58420122 Permanent Plan: Cymbalta and Lexapro, Rozerem for insomnia (9) Chronic pain: Code(s): G89.29 - Other chronic pain SNOMED Code(s): 27297397 Permanent Plan: Baclofen and Flexeril for back spasms, EpiPen f or neuropathy, oxycodone 1 to 2 tablets every 4 hours for stop pain, Voltaren topical and home dose of prednisone 10 mg daily A P Free Text/Narrative :: Patient is 8 days postop. continue with DVT prophylaxis. Participation in PT OT is progressing. Patient is interested in short-term rehabilitation in [facility] so she can be closer to family. [...] Code Description Data Tashia rce(s) Supporting Document(s) Procedure Social History Code Duration Value Status Description Data Source(s ) Smoking 04/07/2020 12:00:00 AM EST Never Smoked Cigarettes com pleted Never Smoked Cigarettes [facility] ([facility] [employer]) Smoking 03/12/2020 12:00:00 AM EST Patient has never smoked co mpleted Patient has never smoked [facility] ([facility], ) Smoking 08/08/2019 12:00:00 AM EDT Never Smoker completed Never S moker eCW1 ([facility]) Smoking 08/08/2019 12:00:00 AM EDT Never Smoker completed Never S moker eCW1 ([facility]) Smoking 08/08/2019 12:00:00 AM EDT Never Smoker completed Never S moker eCW1 ([facility]) Smoking 08/08/2019 12:00:00 AM EDT Never Smoker completed Never S moker eCW1 ([facility]) Smoking 08/08/2019 12:00:00 AM EDT Never Smoker completed Never S moker eCW1 ([facility]) Smoking 08/08/2019 12:00:00 AM EDT Never Smoker completed Never S moker eCW1 ([facility]) Smoking 08/08/2019 12:00:00 AM EDT Never Smoker completed Never S moker eCW1 ([facility]) Smoking 08/08/2019 12:00:00 AM EDT Never Smoker completed Never S moker eCW1 ([facility]) Smoking 08/08/2019 12:00:00 AM EDT Never Smoker completed Never S moker eCW1 ([facility]) 04/03/2019 11:02:00 AM EST Never smoker completed Never s [facility] Smoking 04/03/2019 11:02:00 AM EST Never smoker completed Never s [facility] 04/03/2019 11:02:00 AM EST Never smoker completed Never s [facility] Smoking 04/03/2019 11:02:00 AM EST Never smoker completed Never s [facility] 04/03/2019 11:02:00 AM EST Never smoker completed Never s [facility] Smoking 04/03/2019 11:02:00 AM EST Never smoker completed Never s [facility] 03/06/2019 07:54:34 AM EST Never smoker completed Never s [facility] 03/06/2019 07:54:34 AM EST Never smoker completed Never s [facility] 03/06/2019 07:54:34 AM EST Never smoker completed Never s [facility] 03/06/2019 07:54:34 AM EST Never smoker completed Never s [facility] 03/06/2019 07:54:34 AM EST Never smoker completed Never s [facility] 03/06/2019 07:54:34 AM EST Never smoker completed Never s [facility] Smoking 03/06/2019 07:54:00 AM EST Never smoker completed Never s [facility] Smoking 03/06/2019 07:54:00 AM EST Never smoker completed Never s [facility] Smoking 03/06/2019 07:54:00 AM EST Never smoker completed Never s [facility] Vital Signs ID Date Data Source UNK Name Value Range Interpretation Code Description Data Source(s) Systolic blood pressure 134 mm[Hg] 134 mm[Hg] A THENA ([facility]) Diastolic blood pressure 85 mm[Hg] 85 mm[Hg] MARILIA ([facility]) Body surface area Derived from formula 2.12 m2 2.12 m2 [facility] ([facility], ) Body weight 103.874 kg 103.874 kg [facility] ([facility]) Summers body weight 130 [lb_av] 130 [lb_av] MEDEN T ([facility]) Body mass index (BMI) [Ratio] 37.0 kg/m2 37.0 k g/m2 [facility] ([facility]) Body weight 229.00 [lb_av] 229.00 [lb_av] MEDEN T ([facility], ) Body height 66 [in_i] 66 [in_i] [facility] ([facility]) 5'6" Oxygen saturation in Arterial blood by Pulse oximetry 98 % 98 % [facility] ([facility]) Room Air Heart rate 88 /min 88 /min [facility] ([facility]) Diastolic blood pressure 76 mm[Hg] 76 mm[Hg] [facility] ([facility]) Systolic blood pressure 126 mm[Hg] 126 mm[facility]Hg] [facility] Summers body weight 130 [lb_av] 130 [lb_av] MEDEN T ([facility]) Body height 66 [in_i] 66 [in_i] [facility] ([facility]) 5'6" Systolic blood pressure 139 mm[Hg] 139 mm[Hg] A THENA ([facility]) Diastolic blood pressure 90 mm[Hg] 90 mm[Hg] MARILIA ([facility]) Systolic blood pressure 139 mm[Hg] 139 mm[Hg] A THENA ([facility]) Diastolic blood pressure 90 mm[Hg] 90 mm[Hg] MARILIA ([facility]) Systolic blood pressure 139 mm[Hg] 139 mm[Hg] A THENA ([facility]) Diastolic blood pressure 90 mm[Hg] 90 mm[Hg] MARILIA ([facility]) Systolic blood pressure 139 mm[Hg] 139 mm[Hg] A THENA ([facility]) Diastolic blood pressure 90 mm[Hg] 90 mm[Hg] MARILIA ([facility]) Systolic blood pressure 139 mm[Hg] 139 mm[Hg] A THENA ([facility]) Diastolic blood pressure 90 mm[Hg] 90 mm[Hg] MARILIA ([facility]) Systolic blood pressure 139 mm[Hg] 139 mm[Hg] A THENA ([facility]) Diastolic blood pressure 90 mm[Hg] 90 mm[Hg] MARILIA ([facility]) Systolic blood pressure 139 mm[Hg] 139 mm[Hg] A THENA ([facility]) Diastolic blood pressure 90 mm[Hg] 90 mm[Hg] MARILIA ([facility]) Systolic blood pressure 139 mm[Hg] 139 mm[Hg] A THENA ([facility]) Diastolic blood pressure 90 mm[Hg] 90 mm[Hg] MARILIA ([facility]) Systolic blood pressure 139 mm[Hg] 139 mm[Hg] A THENA ([facility]) Diastolic blood pressure 90 mm[Hg] 90 mm[Hg] MARILIA ([facility]) Systolic blood pressure 139 mm[Hg] 139 mm[Hg] A THENA ([facility]) Diastolic blood pressure 90 mm[Hg] 90 mm[Hg] MARILIA ([facility]) Systolic blood pressure 139 mm[Hg] 139 mm[Hg] A THENA ([facility]) Diastolic blood pressure 90 mm[Hg] 90 mm[Hg] MARILIA ([facility]) Systolic blood pressure 139 mm[Hg] 139 mm[Hg] A THENA ([facility]) Diastolic blood pressure 90 mm[Hg] 90 mm[Hg] MARILIA ([facility]) Diastolic blood pressure 74 mm[Hg] 74 mm[Hg] eCW1 ([facility]) Systolic blood pressure 124 mm[Hg] 124 mm[Hg] e CW1 ([facility]) Body mass index (BMI) [Ratio] 35.67 kg/m2 35.67 kg/m2 eCW1 ([facility]) Body height 66 [in_i] 66 [in_i] eCW1 ([facility]) Body weight 221 [lb_av] 221 [lb_av] eCW1 ([facility]) Body surface area Derived from formula 2.07 m2 2.07 m2 [facility] ([facility]) Body weight 98.885 kg 98.885 kg [facility] ([facility]) Summers body weight 130 [lb_av] 130 [lb_av] MEDEN T ([facility]) Body mass index (BMI) [Ratio] 35.2 kg/m2 35.2 k g/m2 [facility] ([facility]) Body weight 218.00 [lb_av] 218.00 [lb_av] [facility] Body height 66 [in_i] 66 [in_i] [facility] ([facility]) 5'6" Body temperature 97.1 [degF] 97.1 [degF] [facility] ([facility]) Oxygen saturation in Arterial blood by Pulse oximetry 97 % 97 % [facility] ([facility]) Heart rate 89 /min 89 /min [facility] ([facility]) Diastolic blood pressure 82 mm[Hg] 82 mm[Hg] [facility] ([facility]) Systolic blood pressure 124 mm[Hg] 124 mm[Hg] [facility] Body mass index (BMI) [Ratio] 34.70 kg/m2 34.70 kg/m2 W1 ([facility]) Body height 66 [in_us] 66 [in_us] eCW1 ([facility]) Body weight Measured 215 [lb_av] 215 [lb_av] eC W1 ([facility]) Diastolic blood pressure 72 mm[Hg] 72 mm[Hg] eCW1 ([facility]) Systolic blood pressure 108 mm[Hg] 108 mm[Hg] e CW1 ([facility]) Body temperature 97.1 [degF] 97.1 [degF] eCW1 ( [facility]) Respiratory rate 18 /min 18 /min eCW1 ([facility]) Heart rate 94 /min 94 /min eCW1 ([facility]) Body mass index (BMI) [Ratio] 29.99 kg/m2 29.99 kg/m2 eCW1 ([facility]) Body height 66 [in_us] 66 [in_us] eCW1 ([facility]) Body weight Measured [lb_av] eCW1 ([facility]) Diastolic blood pressure 80 mm[Hg] 80 mm[Hg] eCW1 ([facility]) Systolic blood pressure 122 mm[Hg] 122 mm[Hg] e CW1 ([facility]) Body temperature 98.5 [degF] 98.5 [degF] eCW1 ( [facility]) Respiratory rate 18 /min 18 /min eCW1 ([facility]) Heart rate 81 /min 81 /min eCW1 ([facility]) Body mass index (BMI) [Ratio] 35.51 kg/m2 35.51 kg/m2 eCW1 ([facility]) Body height 66 [in_us] 66 [in_us] eCW1 ([facility]) Body weight Measured 220 [lb_av] 220 [lb_av] eC W1 ([facility]) Patient Treatment Plan of Care Planned Activity Planned Date Details Description Data Source (s) Cyclobenzaprine hydrochloride 10 MG Oral Tablet 02/07/2020 12:00:00 AM EST eCW1 ([facility]) Cyclobenzaprine hydrochloride 10 MG Oral Tablet 02/07/2020 12:00:00 AM EST eCW1 ([facility]) Cyclobenzaprine hydrochloride 5 MG Oral Tablet 02/07/2020 12:00:00 AM EST eCW1 ([facility]) Cyclobenzaprine hydrochloride 10 MG Oral Tablet 02/07/2020 12:00:00 AM EST eCW1 ([facility]) Amitriptyline Hydrochloride 25 MG Oral Tablet 12/06/2019 12:00:00 A M EDT eCW1 ([facility]) Amitriptyline Hydrochloride 25 MG Oral Tablet 12/06/2019 12:00:00 A M EDT eCW1 ([facility]) Amitriptyline Hydrochloride 25 MG Oral Tablet 12/06/2019 12:00:00 A M EDT eCW1 ([facility]) Amitriptyline Hydrochloride 25 MG Oral Tablet 12/06/2019 12:00:00 A M EDT eCW1 ([facility]) Amitriptyline Hydrochloride 25 MG Oral Tablet 12/06/2019 12:00:00 A M EDT eCW1 ([facility]) Amitriptyline Hydrochloride 25 MG Oral Tablet 12/06/2019 12:00:00 A M EDT eCW1 ([facility]) Doxycycline Monohydrate 100 MG 03/23/2019 12:00:00 AM EST eCW1 ([facility]) tramadol hydrochloride 50 MG Oral Tablet MARILIA ([facility]) Prednisone 20 MG Oral Tablet MARILIA ([facility]) Acetaminophen 325 MG / Oxycodone Hydrochloride 5 MG Oral Tablet MARILIA ([facility]) Oxycodone Hydrochloride 5 MG Oral Tablet MARILIA ([facility]) tramadol hydrochloride 50 MG Oral Tablet MARILIA ([facility]) Prednisone 20 MG Oral Tablet MARILIA ([facility]) Acetaminophen 325 MG / Oxycodone Hydrochloride 5 MG Oral Tablet MARILIA ([facility]) Oxycodone Hydrochloride 5 MG Oral Tablet MARILIA ([facility]) Methylprednisolone 4 MG Oral Tablet MARILIA ([facility]) Methylprednisolone 2 MG Oral Tablet [Medrol] MARILIA ([facility]) Estradiol 0.1 MG/ML Vaginal Cream [place] ([facility]) 0.3 ML Enoxaparin sodium 100 MG/ML Prefilled Syringe [place] ([facility]) Doxycycline Monohydrate 100 MG Oral Capsule [place] ([facility]) Ciprofloxacin 250 MG Oral Tablet [place] ([facility]) cefdinir 300 MG Oral Capsule [place] ([facility]) Methylprednisolone 4 MG Oral Tablet [place] ([facility]) Methylprednisolone 2 MG Oral Tablet [Medrol] [place] ([facility]) glimepiride 2 MG Oral Tablet [place] ([facility]) glimepiride 1 MG Oral Tablet [place] ([facility]) Estradiol 0.1 MG/ML Vaginal Cream [facility] ([facility]) 0.3 ML Enoxaparin sodium 100 MG/ML Prefilled Syringe [facility] ([facility]) Doxycycline Monohydrate 100 MG Oral Capsule [place] ([facility]) Ciprofloxacin 250 MG Oral Tablet [place] ([facility]) cefdinir 300 MG Oral Capsule [place] ([facility]) Amoxicillin 500 MG / Clavulanate 125 MG Oral Tablet [place] ([facility]) Alprazolam 1 MG Oral Tablet [place] ([facility]) Amoxicillin 500 MG / Clavulanate 125 MG Oral Tablet [place] ([facility]) Alprazolam 1 MG Oral Tablet [place] ([facility]) tramadol hydrochloride 50 MG Oral Tablet [place] ([facility]) tramadol hydrochloride 50 MG Oral Tablet [place] ([facility]) Prednisone 20 MG Oral Tablet [place] ([facility]) Acetaminophen 325 MG / Oxycodone Hydrochloride 5 MG Oral Tablet [place] ([facility]) Oxycodone Hydrochloride 5 MG Oral Tablet [place] ([facility]) Methylprednisolone 4 MG Oral Tablet [place] ([facility]) Methylprednisolone 2 MG Oral Tablet [Medrol] [place] ([facility]) Estradiol 0.1 MG/ML Vaginal Cream [place] ([facility]) 0.3 ML Enoxaparin sodium 100 MG/ML Prefilled Syringe [facility] ([facility]) Doxycycline Monohydrate 100 MG Oral Capsule [place] ([facility]) Ciprofloxacin 250 MG Oral Tablet [place] ([facility]) cefdinir 300 MG Oral Capsule [place] ([facility]) Amoxicillin 500 MG / Clavulanate 125 MG Oral Tablet [place] ([facility]) Alprazolam 1 MG Oral Tablet [place] ([facility]) tramadol hydrochloride 50 MG Oral Tablet [place] ([facility]) Prednisone 20 MG Oral Tablet [place] ([facility]) Acetaminophen 325 MG / Oxycodone Hydrochloride 5 MG Oral Tablet [place] ([facility]) Oxycodone Hydrochloride 5 MG Oral Tablet [place] ([facility]) Methylprednisolone 4 MG Oral Tablet [place] ([facility]) Methylprednisolone 2 MG Oral Tablet [Medrol] [place] ([facility]) Estradiol 0.1 MG/ML Vaginal Cream [facility] ([facility]) 0.3 ML Enoxaparin sodium 100 MG/ML Prefilled Syringe [place] ([facility]) Doxycycline Monohydrate 100 MG Oral Capsule [place] ([facility]) Ciprofloxacin 250 MG Oral Tablet [place] ([facility]) cefdinir 300 MG Oral Capsule [place] ([facility]) Amoxicillin 500 MG / Clavulanate 125 MG Oral Tablet [place] ([facility]) Alprazolam 1 MG Oral Tablet [place] ([facility]) Prednisone 20 MG Oral Tablet [place] ([facility]) Acetaminophen 325 MG / Oxycodone Hydrochloride 5 MG Oral Tablet [place] ([facility]) Oxycodone Hydrochloride 5 MG Oral Tablet [place] ([facility]) Methylprednisolone 4 MG Oral Tablet [place] ([facility]) Methylprednisolone 2 MG Oral Tablet [Medrol] [place] ([facility]) Estradiol 0.1 MG/ML Vaginal Cream [place] ([facility]) 0.3 ML Enoxaparin sodium 100 MG/ML Prefilled Syringe [place] ([facility]) Doxycycline Monohydrate 100 MG Oral Capsule [place] ([facility]) Ciprofloxacin 250 MG Oral Tablet [place] ([facility]) cefdinir 300 MG Oral Capsule [place] ([facility]) Amoxicillin 500 MG / Clavulanate 125 MG Oral Tablet [place] ([facility]) Alprazolam 1 MG Oral Tablet [place] ([facility])
[2020-04-29 06:55] VITALS: BP 112/55
[2020-04-29] MEDS: ADVAIR HFA 230/21MCG INHALER INH SCH ×2 (08:00→20:48)
[2020-04-29] MEDS: MORPHINE 2 MG/ML 1ML VIAL (J2270) IV PRN ×2 (08:21→10:20)
[2020-04-29] MEDS ORDERED: NEOSPORIN OINT 0.9 GM PKT TOP ONE ×2 (09:00→09:30)
[2020-04-29] MEDS: CYCLOBENZAPRINE 10MG TABLET PO SCH ×3 (09:00→21:50)
[2020-04-29] MEDS: DULoxetine 30 MG CAP (CYMBALTA) PO SCH ×2 (09:00→21:50)
[2020-04-29] MEDS: GABAPENTIN 400MG CAP PO SCH ×3 (09:00→21:49)
[2020-04-29] MEDS ORDERED: BACLOFEN 10 MG TAB PO SCH (09:00)
[2020-04-29] MEDS ORDERED: SILVER NITRATE APPLICATOR TOP ONE (09:00)
[2020-04-29] MEDS ORDERED: FLOM0.4C39 PO (10:06)
[2020-04-29] MEDS ORDERED: ASPI81CH48 PO (10:06)
[2020-04-29] MEDS ORDERED: CYCL5TAB PO (10:06)
[2020-04-29] MEDS ORDERED: BREO1INH3 INH (10:06)
[2020-04-29] MEDS ORDERED: RA S8.6T3 PO (10:06)
[2020-04-29] MEDS ORDERED: ALBUTEROL 90 MCG/ACT 8GM HFA INHALER INH PRN (10:45)
[2020-04-29] MEDS ORDERED: ALBUTEROL SULFATE 2.5 MG/0.5 ML INH NEB SOLN INH PRN (10:45)
[2020-04-29] MEDS ORDERED: LIDOCAINE 5% OINT 30GM TUBE TOP PRN (10:45)
--- OUTSIDE RECORDS SUMMARY | 2020-04-29 10:49 | CCD ---
Author Author [facility] Organization [facility] Address Unknown Phone Unavailable Care Team Providers Care Medical Assistant Float Name Role Phone Sarah Chapa MD Unavailable [...] Unavailable Chapa, Sarah Aburto MD Unavailable Unavailable Chaap, Sarah Aburto MD Unavailable Unavailable Chapa, Sarah Aburto MD Unavailable Unavailable Chapa, Sarah Aburto MD Unavailable Unavailable Chapa, Sarah Aburto MD Unavailable Unavailable Chapa, Sarah Aburto MD Unavailable Unavailable Chapa, Sarah Aburto MD Unavailable Unavailable Chapa, Sarah Aburto MD Unavailable Unavailable Chapa, Sarah Aburto MD Unavailable Unavailable Jumalon, M Mar TRAFFIC COUNTER Unavailable Unavailable Jumalon, M Mar TRAFFIC COUNTER Unavailable Unavailable Jumalon, M Mar TRAFFIC COUNTER Unavailable Unavailable Jumalon, M Mar TRAFFIC COUNTER Unavailable Unavailable Jumalon, M Mar TRAFFIC COUNTER Unavailable Unavailable Jumalon, M Mar TRAFFIC COUNTER Unavailable Unavailable Jumalon, M Mar TRAFFIC COUNTER Unavailable Unavailable Jumalon, M Mar TRAFFIC COUNTER Unavailable Unavailable Jumalon, M Mar TRAFFIC COUNTER Unavailable Unavailable Jumalon, M Mar TRAFFIC COUNTER Unavailable Unavailable Jumalon, M Mar TRAFFIC COUNTER Unavailable Unavailable Jumalon, M Mar TRAFFIC COUNTER Unavailable Unavailable Jumalon, M Mar TRAFFIC COUNTER Unavailable Unavailable Jumalon, M Mar TRAFFIC COUNTER Unavailable Unavailable Jumalon, M Mar TRAFFIC COUNTER Unavailable Unavailable Jumalon, M Mar TRAFFIC COUNTER Unavailable Unavailable Jumalon, M Mar TRAFFIC COUNTER Unavailable Unavailable Jumalon, M Mar TRAFFIC COUNTER Unavailable Unavailable Jumalon, M Mar TRAFFIC COUNTER Unavailable Unavailable Jumalon, M Mar TRAFFIC COUNTER Unavailable Unavailable Jumalon, M Mar TRAFFIC COUNTER Unavailable Unavailable Jumalon, M Mar TRAFFIC COUNTER Unavailable Unavailable Jumalon, M Mar TRAFFIC COUNTER Unavailable Unavailable Jumalon, M Mar TRAFFIC COUNTER Unavailable Unavailable Jumalon, M Mar TRAFFIC COUNTER Unavailable Unavailable Jumalon, M Mar TRAFFIC COUNTER Unavailable Unavailable Jumalon, M Mar TRAFFIC COUNTER Unavailable Unavailable Jumalon, M Mar TRAFFIC COUNTER Unavailable Unavailable Angel Gao MD Unavailable Unavailable [...] Unavailable Unavailable Bridger Rojo PA Unavailable Unavailable Birdger Rojo PA Unavailable Unavailable Bridger Rojo PA [...] Unavailable Unavailable Jaime Ann MD Unavailable Unavailable aJime Ann MD Unavailable Unavailable Jaime Ann MD [...] Ann MD Unavailable Unavailable Ronald, K Eliane CUPOLA MECHANIC Unavailable Unavailable Ronald, K Eliane CUPOLA MECHANIC Unavailable Unavailable Ronald, K Eliane CUPOLA MECHANIC Unavailable Unavailable Ronald, K Eliane CUPOLA MECHANIC Unavailable Unavailable Ronald, K Eliane CUPOLA MECHANIC Unavailable Unavailable Ronald, K Eliane CUPOLA MECHANIC Unavailable Unavailable Ronald, K Eliane CUPOLA MECHANIC Unavailable Unavailable Ronald, K Eliane CUPOLA MECHANIC Unavailable Unavailable Ronald, K Eliane CUPOLA MECHANIC Unavailable Unavailable Ronald, K Eliane CUPOLA MECHANIC Unavailable Unavailable Ronald, K Eliane CUPOLA MECHANIC Unavailable Unavailable Ronald, K Eliane CUPOLA MECHANIC Unavailable Unavailable Ronald, K Eliane CUPOLA MECHANIC Unavailable Unavailable Ronald, K Eliane CUPOLA MECHANIC Unavailable Unavailable Ronald, K Eliane CUPOLA MECHANIC Unavailable Unavailable Ronald, K Eliane CUPOLA MECHANIC Unavailable Unavailable Ronald, K Eliane CUPOLA MECHANIC Unavailable Unavailable Ronald, K Eliane CUPOLA MECHANIC Unavailable Unavailable Ronald, K Eliane CUPOLA MECHANIC Unavailable Unavailable Ronald, K Eliane CUPOLA MECHANIC Unavailable Unavailable Ronald, K Eliane CUPOLA MECHANIC Unavailable Unavailable Ronald, K Eliane CUPOLA MECHANIC Unavailable Unavailable Ronald, K Eliane CUPOLA MECHANIC Unavailable Unavailable Ronald, K Eliane CUPOLA MECHANIC Unavailable Unavailable Ronald, K Eliane CUPOLA MECHANIC Unavailable Unavailable Ronald, K Eliane CUPOLA MECHANIC Unavailable Unavailable Ronald, K Eliane CUPOLA MECHANIC Unavailable Unavailable Ronald, K Eliane CUPOLA MECHANIC Unavailable Unavailable Ronald, K Eliane CUPOLA MECHANIC Unavailable Unavailable Ronald, K Eliane CUPOLA MECHANIC Unavailable Unavailable Ronald, K Eliane CUPOLA MECHANIC Unavailable Unavailable Ronald, K Eliane CUPOLA MECHANIC Unavailable Unavailable Ronald, K Eliane CUPOLA MECHANIC Unavailable Unavailable Ronald, K Eliane CUPOLA MECHANIC Unavailable Unavailable [facility] Unavailable Unavailable [place], [...] is protected by Article 27-F of the [facility] Public Health law. If you continue you may have access to information: Regarding HIV / AIDS; Provided by facilities licensed or operated by the [facility] Office of Mental Health; or Provided by the [facility] Office for People With Developmental Disabilities. If such information is present, then the following [facility] mandated warning applies: This information has been [...] law may result in a fine or snf sentence or both. A general authorization for the release of medical or other information is NOT sufficient authorization for further disc losure. Allergies and Adverse Reactions Type Description Substance Reaction Status Data Source(s ) Drug allergy Zocor 10 Drug allergy Anaphylaxis Active eCW1 ([facility]) puneet sprinkles puneet sprinkles puneet sprinkles head ache A ctive eCW1 ([facility]) tequin tequin tequin pruritis Active eCW1 ([facility]) Drug allergy gatifloxacin gatifloxacin [facility]ma [facility] Drug allergy rofecoxib rofecoxib [facility] Drug allergy simvastatin simvastatin Anaphylaxis [facility] Drug allergy theophylline theophylline MASSIVE HEAD PAIN [facility] puneet sprinkles puneet sprinkles puneet sprinkles head ache A ctive eCW1 ([facility]) tequin tequin tequin pruritis Active eCW1 ([facility]) tequin tequin tequin pruritis Active eCW1 ([facility]) puneet sprinkles puneet sprinkles puneet sprinkles head ache A ctive eCW1 ([facility]) Crestor Crestor Rosuvastatin calcium 5 MG Oral Tablet [Crestor] myalgia Active eCW1 ([facility]) Family History Family Member Name Family Member Gender Family Member Status Date o f Status Description Data Source(s) Unknown Unknown Problem MEDENT ([facility], ) sister age 48 and another age 59 alive Encounters Encounter Providers Location Date Indications Data Source(s ) Mar Smith CUPOLA MECHANIC: [address], [place] [address], Ph. Attender: aMr Smith [facility] - [facility] Office 04/15/2020 12:00:00 AM EST ATHE NA ([facility]) Outpatient Attender: Monica Bal MD 04/07/2020 09:05 :00 PM EST User Experience Manager [facility] Outpatient Attender: Monica Bal MD [place]/ Steffen Martin ology 04/07/2020 12:15:00 PM EST MEDENT ([facility]) Oleg Ling MD: [address], [place] [address], Ph. Attender: Oleg Ling MD [place] - [facility] Office 03/31/2020 12:00:00 AM EST MARILIA ([facility]) Oleg Ling MD: [address], [place] [address], Ph. Attender: Oleg Ling MD [facility] Office 03/31/2020 12:00:00 AM EST MARILIA ([facility]) OFFICE OUTPATIENT VISIT 15 MINUTES Attender: Bren RODRIG[facility] 03/27/2020 12:45:00 PM EST MEDENT ([facility]) Oleg Ling MD: [address], [place] [address], Ph. [phone] Attender: Oleg Ling MD [facility] Office 03/26/2020 12:00:00 AM EST MARILIA ([facility]) Oleg Ling MD: [address], [place] [address], Ph. [phone] Attender: Oleg iLng MD [facility] Office 03/26/2020 12:00:00 AM EST MARILIA ([facility]) Oleg Ling MD: [address], [place] [address], Ph. [phone] Attender: Oleg Ling MD [place] - [facility] 03/26/2020 12:00:00 AM EST MARILIA ([facility]) Mar Smith, CUPOLA MECHANIC: [address], [place] [address], Ph. Attender: Mar Smith [facility] - [facility] 03/18/2020 12:00:00 AM EST ATHE NA ([facility]) Mar Smith, CUPOLA MECHANIC: [address], [place] [address], Ph. Attender: Mar Smith [facility] - [facility] 03/18/2020 12:00:00 AM EST ATHE NA ([facility]) Mar Smith, CUPOLA MECHANIC: [address], [place] [address], Ph. Attender: Mar Smith [facility] - [facility] 03/18/2020 12:00:00 AM EST ATHE NA ([facility]) Mar Smith, CUPOLA MECHANIC: [address], [place] [address], Ph. Attender: Mar Smith [facility] - [facility] 03/18/2020 12:00:00 AM EST ATHE NA ([facility]) [place] [address] [facility] [address] 03/14/2020 12:00:00 AM EST eCW1 ([facility]) Unknown [address] [facility] [address] 03/13/2020 12:00:00 AM EST eCW1 ([facility]) Outpatient Attender: Andrea Sterling/Riri/Mil/Joe ndl 03/12/2020 09:00:00 AM EST MEDREMY ([facility]) Mar Smith, CUPOLA MECHANIC: [address], [place] [address], Ph. Attender: Mar Smith [facility] 02/14/2020 12:00:00 AM EST ATHE NA ([facility]) Mar Smith, CUPOLA MECHANIC: [address], [place] [address], Ph. Attender: Mar Smith [facility] 02/14/2020 12:00:00 AM EST ATHE NA ([facility]) Mar Smith, CUPOLA MECHANIC: [address], [place] [address], Ph. Attender: Mar Smith [facility] 02/14/2020 12:00:00 AM EST ATHE NA ([facility]) Mar Smith, CUPOLA MECHANIC: [address], [place] [address], Ph. Attender: Mar Smith [facility] 02/14/2020 12:00:00 AM EST ATHE NA ([facility]) Mar Smith, CUPOLA MECHANIC: [address], [place] [address], Ph. Attender: Mar Smith [facility] 02/14/2020 12:00:00 AM EST ATHE NA ([facility]) [place] [address] [facility] [address] 02/13/2020 12:00:00 AM EST eCW1 [facility] [place] [address] [facility] [address] 02/06/2020 12:00:00 AM EST eCW1 ([facility]) Outpatient Attender: Amira Garg 01/10/2020 11:00:00 PM E [facility] User Experience Manager Outpatient Attender: Amira Garg [place] 12:30:00 PM EST MEDENT ([facility]) Preadmit Attender: Cesario Gao MD 01/03/2020 12:00:00 AM EDT S/P R FEMUR FX [facility] S/P R FEMUR FX Outpatient Attender: Monica Bal MD 12/11/2019 11:00 :00 PM EDT [facility] Unknown [address] [facility] [address] 12/06/2019 12:00:00 AM EDT eCW1 ([facility]) Unknown [address] [facility] [address] 12/05/2019 12:00:00 AM EDT eCW1 ([facility]) Oleg Ling MD: [address], [place] [address], Ph. Attender: Oleg Ling MD [place] - [facility] 12/03/2019 12:00:00 AM EDT MARILIA ([facility]) Oleg Ling MD: [address], [place] [address], Ph. Attender: Oleg CHAIREZ - [facility] 12/03/2019 12:00:00 AM EDT MARILIA ([facility]) Oleg Ling MD: [address], [place] [address], Ph. Attender: Oleg Ling MD [place] - [facility] 12/03/2019 12:00:00 AM EDT MARILIA ([facility]) Oleg Ling MD: [address], [address], [place] [address], Ph. Attender: Oleg Ling MD [place] - [facility] 12/03/2019 12:00:00 AM EDT MARILIA ([facility]) Oleg Ling MD: [address], [address], [place] [address], Ph. Attender: Oleg Ling MD [place] - [facility] 12/03/2019 12:00:00 AM EDT MARILIA ([facility]) Oleg Ling MD: [address], [address], [place] [address], Ph. Attender: Oleg CHAIREZ - [facility] 12/03/2019 12:00:00 AM EDT MARILIA ([facility]) Oleg Ling MD: [address], [address], [place] [address], Ph. [phone] Attender: Oleg CHAIREZ - [facility] 11/28/2019 12:00:00 AM EDT MARILIA ([facility]) Oleg Ling MD: [address], [address], [place] [address], Ph. [phone] Attender: Oleg CHAIREZ - [facility] 11/28/2019 12:00:00 AM EDT MARILIA ([facility]) Oleg Ling MD: [address], [address], [place] [address], Ph. [phone] Attender: Oleg Ling MD [place] - [facility] Office 11/28/2019 12:00:00 AM EDT MARILIA ([facility]) Oleg Ling MD: [address], [address], [place] [address], Ph. [phone] Attender: Oleg Ling MD [place] - [facility] 11/28/2019 12:00:00 AM EDT MARILIA ([facility]) Oleg Ling MD: [address], [address], [place] [address], Ph. [phone] Attender: Oleg CHAIREZ - [facility] 11/28/2019 12:00:00 AM EDT MARILIA ([facility]) Oleg Ling MD: [address], [address], [place] [address], Ph. [phone] Attender: Oleg CHAIREZ - [facility] 11/28/2019 12:00:00 AM EDT MARILIA ([facility]) Oleg Ling MD: [address], [address], [place] [address], Ph. [phone] Attender: Oleg Ling MD [place] - [facility] 11/28/2019 12:00:00 AM EDT MARILIA ([facility]) Oleg Ling MD: [address], [address], [place] [address], Ph. [phone] Attender: Oleg Ling MD [place] - [facility] 11/23/2019 12:00:00 AM EDT MARILIA ([facility]) Oleg Ling MD: [address], [address], [place] [address], Ph. [phone] Attender: Oleg CHAIREZ - [facility] 11/23/2019 12:00:00 AM EDT MARILIA ([facility]) Oleg Ling MD: [address], [address], [place] [address], Ph. [phone] Attender: Oleg Ling MD [place] - [facility] - [facility] 11/23/2019 12:00:00 AM EDT MARILIA ([facility]) Oleg Ling MD: [address], [address], [place] [address], Ph. [phone] Attender: Oleg Ling MD [place] - [facility] 11/23/2019 12:00:00 AM EDT MARILIA ([facility]) Oleg Ling MD: [address], [address], [place] [address], Ph. [phone] Attender: Oleg Ling MD [place] - [facility] 11/23/2019 12:00:00 AM EDT MARILIA ([facility]) Oleg Lign MD: [address], [address], [place] [address], Ph. [phone] Attender: Oleg Ling MD [place] - [facility] - [facility] 11/23/2019 12:00:00 AM EDT MARILIA ([facility]) Oleg Ling MD: [address], [address], [place] [address], Ph. [phone] Attender: Oleg Ling MD [place] - [facility] 11/23/2019 12:00:00 AM EDT MARILIA ([facility]) Oleg Ling MD: [address], [address], [place] [address], Ph. [phone] Attender: Oleg Ling MD [place] - [facility] Office 11/23/2019 12:00:00 AM EDT MARILIA ([facility]) Mar Smith, CUPOLA MECHANIC: [address], [address], [place] [address], Ph. Attender: Mar Smith [facility] - [facility] 11/22/2019 12:00:00 AM EDT ATHE NA ([facility]) Mar Smith, CUPOLA MECHANIC: [address], [address], [place] [address], Ph. Attender: Mar Simth [facility] - [facility] 11/22/2019 12:00:00 AM EDT ATHE NA ([facility]) Mar Smith, CUPOLA MECHANIC: [address], [place] [address], Ph. Attender: Mar Smith [facility] 11/22/2019 12:00:00 AM EDT ATHE NA ([facility]) Mar Smith, CUPOLA MECHANIC: [address], [address], [place] [address], Ph. Attender: Mar Smith [facility] - [facility] 11/22/2019 12:00:00 AM EDT ATHE NA ([facility]) Mar Smith, CUPOLA MECHANIC: [address], [address], [place] [address], Ph. Attender: Mar Smith [facility] - [facility] 11/22/2019 12:00:00 AM EDT ATHE NA ([facility]) Mar Smith, CUPOLA MECHANIC: [address], [address], [place] [address], Ph. Attender: Mar Smith [facility] - [facility] 11/22/2019 12:00:00 AM EDT ATHE NA ([facility]) Mar Smith, CUPOLA MECHANIC: [address], [place] [address], Ph. Attender: Mar Smith [facility] - [facility] - [facility] 11/22/2019 12:00:00 AM EDT ATHE NA ([facility]) Mar Smith, CUPOLA MECHANIC: [address], [address], [place] [address], Ph. Attender: Mar Smith [facility] - [facility] 11/22/2019 12:00:00 AM EDT ATHE NA ([facility]) Mar Smith, CUPOLA MECHANIC: [address], [place] [address], Ph. Attender: Mar Smith [facility] - [facility] 11/22/2019 12:00:00 AM EDT ATHE NA ([facility]) Oleg Ling MD: [address], [address], [place] [address], Ph. Attender: Oleg CHAIREZ - [facility] 11/07/2019 12:00:00 AM EDT MARILIA ([facility]) Oleg Ling MD: [address], [address], [place] [address], Ph. Attender: Oleg CHAIREZ - [facility] 11/07/2019 12:00:00 AM EDT MARILIA ([facility]) Oleg Ling MD: [address], [address], [place] [address], Ph. Attender: Oleg Ling MD [place] - [facility] 11/07/2019 12:00:00 AM EDT MARILIA ([facility]) Oleg Ling MD: [address], [address], [place] [address], Ph. Attender: Oleg CHAIREZ - [facility] 11/07/2019 12:00:00 AM EDT MARILIA ([facility]) Oleg Ling MD: [address], [address], [place] [address], Ph. Attender: Oleg CHAIREZ - [facility] 11/07/2019 12:00:00 AM EDT MARILIA ([facility]) Oleg Ling MD: [address], [address], [place] [address], Ph. Attender: Oleg CHAIREZ - [facility] 11/07/2019 12:00:00 AM EDT MARILIA ([facility]) Oleg Ling MD: [address], [address], [place] [address], Ph. Attender: Oleg CHAIREZ - [facility] 11/07/2019 12:00:00 AM EDT MARILIA ([facility]) Oleg Ling MD: [address], [address], [place] [address], Ph. Attender: Oleg CHAIREZ - [facility] 11/07/2019 12:00:00 AM EDT MARILIA ([facility]) Oleg Ling MD: [address], [address], [place] [address], Ph. Attender: Oleg CHAIREZ - [facility] 11/07/2019 12:00:00 AM EDT MARILIA ([facility]) Oleg Ling MD: [address], [address], [place] [address], Ph. Attender: Oleg Ling MD ND - [facility] 11/07/2019 12:00:00 AM EDT MARILIA ([facility]) Oleg Ling MD: [address], [address], [place] [address], Ph. [phone] Attender: Oleg Ling MD ND - [facility] 11/02/2019 12:00:00 AM EDT MARILIA ([facility]) Oleg Ling MD: [address], [address], [place] [address], Ph. [phone] Attender: Oleg Ling MD ND - [facility] 11/02/2019 12:00:00 AM EDT MARILIA ([facility]) Oleg Ling MD: [address], [address], [place] [address], Ph. [phone] Attender: Oleg Ling MD ND - [facility] 11/02/2019 12:00:00 AM EDT MARILIA ([facility]) Oleg Ling MD: [address], [address], [place] [address], Ph. [phone] Attender: Oleg Ling MD ND - [facility] 11/02/2019 12:00:00 AM EDT MARILIA ([facility]) Oleg Ling MD: [address], [address], [place] [address], Ph. [phone] Attender: Oleg Ling MD [place] - [facility] 11/02/2019 12:00:00 AM EDT MARILIA ([facility]) Oleg Ling MD: [address], [address], [place] [address], Ph. [phone] Attender: Oleg Ling MD [place] - [facility] 11/02/2019 12:00:00 AM EDT MARILIA ([facility]) Oleg Ling MD: [address], [address], [place] [address], Ph. [phone] Attender: Oleg Ling MD [place] - [facility] 11/02/2019 12:00:00 AM EDT MARILIA ([facility]) Oleg Ling MD: [address], [address], [place] [address], Ph. [phone] Attender: Oleg Ling MD [place] - [facility] 11/02/2019 12:00:00 AM EDT MARILIA ([facility]) Oleg Ling MD: [address], [address], [place] [address], Ph. [phone] Attender: Oleg Ling MD [place] - [facility] 11/02/2019 12:00:00 AM EDT MARILIA ([facility]) Oleg Ling MD: [address], [address], [place] [address], Ph. [phone] Attender: Oleg Ling MD [place] - [facility] 11/02/2019 12:00:00 AM EDT MARILIA ([facility]) Oleg Ling MD: [address], [address], [place] [address], Ph. [phone] Attender: Oleg Ling MD [place] - [facility] 11/02/2019 12:00:00 AM EDT MARILIA ([facility]) Mar Smith, CUPOL[employer] MECHANIC: [address], [address], [place] [address], Ph. Attender: Mar Smith [facility] - [facility] 10/24/2019 12:00:00 AM EDT ATHE NA ([facility]) Mar Smith, CUPOL[employer] MECHANIC: [address], [address], [place] [address], Ph. Attender: Mar Smith [facility] - [facility] 10/24/2019 12:00:00 AM EDT ATHE NA ([facility]) Mar Smith, CUPOLA MECHANIC: [address], [place] [address], Ph. Attender: Mar Smith [facility] - [facility] 10/24/2019 12:00:00 AM EDT ATHE NA ([facility]) Mar Smith, CUPOL[employer] MECHANIC: [address], [address], [place] [address], Ph. Attender: Mar Smith [facility] - [facility] 10/24/2019 12:00:00 AM EDT ATHE NA ([facility]) Mar Smith, CUPOLA MECHANIC: [address], [address], [place] [address], Ph. Attender: Mar Smith [facility] - [facility] 10/24/2019 12:00:00 AM EDT ATHE NA ([facility]) Mar Smith, CUPOL[employer] MECHANIC: [address], [address], [place] [address], Ph. Attender: Mar Smith [facility] - [facility] 10/24/2019 12:00:00 AM EDT ATHE NA ([facility]) Mar Smith, CUPOLA MECHANIC: [address], [place] [address], Ph. Attender: Mar Smith [facility] - [facility] 10/24/2019 12:00:00 AM EDT ATHE NA ([facility]) Mar Smith, CUPOLA MECHANIC: [address], [place] [address], Ph. Attender: Mar Smith [facility] - [facility] 10/24/2019 12:00:00 AM EDT ATHE NA ([facility]) Mar Smith, CUPOLA MECHANIC: [address], [place] [address], Ph. Attender: Mar Smith [facility] - [facility] 10/24/2019 12:00:00 AM EDT ATHE NA ([facility]) Mar Smith, CUPOLA MECHANIC: [address], [place] [address], Ph. Attender: Mar Smith [facility] - [facility] 10/24/2019 12:00:00 AM EDT ATHE NA ([facility]) Mar Smith, CUPOLA MECHANIC: [address], [address], [place] [address], Ph. Attender: Mar Smith [facility] - [facility] 10/24/2019 12:00:00 AM EDT ATHE NA ([facility]) Mar Smith, CUPOLA MECHANIC: [address], [address], [place] [address], Ph. Attender: Mar Smith LINNEA [place] - [facility] - Main Office 10/24/2019 12:00:00 AM EDT VANCE NA ([facility]) OFFICE OUTPATIENT VISIT 15 MINUTES Attender: Bren RODRIGES Physical Therapy 10/17/2019 10:45:00 AM EDT MEDENT ([facility]) [facility] [address] [facility] [address] 10/12/2019 12:00:00 AM EDT eCW1 [facility] Outpatient Attender: Amira Garg 10/11/2019 08:07:00 PM E DT [facility] Outpatient Attender: Amira Harrell/ [facility] 11:00:00 AM EDT MEDENT ([facility]) Outpatient Attender: Monica Bal MD 09/04/2019 08:59 :00 PM EDT [facility] Outpatient Attender: Monica Harrell[facility] 09/04/2019 11:45:00 AM EDT MEDENT ([facility]) Unknown [address] [facility] [address] 08/21/2019 12:00:00 AM EDT eCW1 ([facility] 08/14/2019 07:45:42 PM EDT [facility] [address] [facility] [address] 08/08/2019 12:00:00 AM EDT eCW1 ([facility]) Unknown [address] [facility] [address] 08/02/2019 12:00:00 AM EDT eCW1 ([facility] [address] [facility] [place] [address] 07/31/2019 12:00:00 AM EDT eCW1 [facility] [address] [address] 07/27/2019 12:00:00 AM EDT eCW1 ([facility]) [address] [address] 07/10/2019 12:00:00 AM EDT eCW1 ([facility]) Outpatient Attender: Eliane Cardenas NP [place] 11:00:00 AM EDT MEDENT ([facility]) Outpatient Attender: Cesario Gao MDReferrer: Kimani Lees 06/21/2019 10:41:00 AM EDT - 06/21/2019 11:40:00 AM EDT [facility] Outpatient Attender: ROBBI RODRIGES 0 10:33:00 AM EDT POST OP ORTHO [facility] POST OP ORTHO Outpatient Referrer: Lamonte Chapa MD 06/19/2019 04:53:00 AM EDT [facility] [address] [address] 06/08/2019 12:00:00 AM EDT eCW1 ([facility]) [address], [facility] [address] 06/07/2019 12:00:00 AM EDT eCW1 ([facility]) Outpatient Attender: ROBBI RODRIGES 0 04:29:00 PM EST [id number] [facility] [id number] Outpatient Attender: ROBBI CHANG PAReferrer: Kimani montalvo MD 05/11/2019 03:50:00 PM EST - 05/11/2019 05:05:00 PM EST [address] [address] 04/19/2019 12:00:00 AM EST eCW1 ([facility] [address] [address] 04/19/2019 12:00:00 AM EST eCW1 ([facility]) Outpatient Attender: Cesairo Gao MD 04/03 10:15:00 AM EST - 04/03/2019 07:40:00 PM EST [id number] [facility] l [id number] Patient discharged. Outpatient Attender: Cesario Gao MDReferrer: Kimani Lees 03/29/2019 02:36:00 PM EST [facility] Outpatient Attender: ROBBI RODRIGES 0 02:17:00 PM EST POST OP FX [facility] POST OP FX [address], [facility] [address] 03/23/2019 12:00:00 AM EST eCW1 ([facility]) [address] [address] 03/21/2019 12:00:00 AM EST eCW1 ([facility]) [address] [address] 03/16/2019 12:00:00 AM EST eCW1 [facility] [address] [place] [address] 03/16/2019 12:00:00 AM EST eCW1 ([facility] Outpatient Attender: ROBBI CHANG PAReferrer: Kimani montalvo MD 03/14/2019 02:51:00 PM EST - 03/14/2019 04:11:00 PM EST [facility] Outpatient Attender: ROBBI RODRIGES 0 02:09:00 PM EST [id number] [facility] [id number] [address] [address] 03/08/2019 12:00:00 AM EST eCW1 ([facility]) Inpatient Attender: Ellie Jefferson MD Attender: Christian Jenkins MDAdmitter: Ellie Jefferson MDConsultant: Cesario Gao MD 02/19/2019 05:52:00 PM EST - 03/06/2019 02:05:00 PM EST S/P FEMUR FRACTURE [facility] S/P FEMUR FRACTURE Patient discharged. 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 Medications Medication Brand Name Start Date Product Form Dose Route Admi nistrative Instructions Pharmacy Instructions Status Indications Reaction Description Data Source(s) Ciprofloxacin 500 MG Oral Tablet Ciprofloxacin HCL 04/09/2020 12:00 :00 AM EST ORAL active [facility] ([facility] NITROFURANTOIN, MACROCRYSTALS 50 MG Oral Capsule [Macrodanti n] Macrodantin 04/09/2020 12:00:00 AM EST ORAL active [facility] ([facility]) Cyclobenzaprine hydrochloride 10 MG Oral Tablet Cyclob enzaprine HCl 10 MG Cyclobenzaprine HCl 10 MG 02/07/2020 12:00:00 AM EST active Cyclobenzaprine HCl 10 MG eCW1 ([facility]) Cyclobenzaprine hydrochloride 10 MG Oral Tablet Cyclob enzaprine HCl 10 MG Cyclobenzaprine HCl 10 MG 02/07/2020 12:00:00 AM EST active Cyclobenzaprine HCl 10 MG eCW1 ([facility]) Cyclobenzaprine hydrochloride 10 MG Oral Tablet Cyclob enzaprine HCl 10 MG Cyclobenzaprine HCl 10 MG 02/07/2020 12:00:00 AM EST active Cyclobenzaprine HCl 10 MG eCW1 ([facility]) Cyclobenzaprine hydrochloride 5 MG Oral Tablet Cyclobe nzaprine HCl 5 MG Cyclobenzaprine HCl 5 MG 02/07/2020 12:00:00 AM EST active Cyclobenzaprine HCl 5 MG eCW1 ([facility]) Metronidazole 500 MG Oral Tablet Metronidazole 01/14/2020 12:00:00 AM EST ORAL active [facility] ([facility] [place]) NITROFURANTOIN, MACROCRYSTALS 25 MG / Ni trofurantoin, Monohydrate 75 MG Oral Capsule [Macrobid] Macrobid 01/10/2020 12:00:00 AM EST ORAL completed [facility] ([facility]) Tamsulosin hydrochloride 0.4 MG Oral Capsule Tamsulosin HCL 01/10/2020 12:00:00 AM EST active [facility] ([facility] [place]) Ciprofloxacin 250 MG Oral Tablet Ciprofloxacin HCL 12/13/2019 12:00 :00 AM EDT ORAL completed [facility] ([facility]) Amitriptyline Hydrochloride 25 MG Oral Tablet Amitript yline HCl 25 MG Amitriptyline HCl 25 MG 12/06/2019 12:00:00 AM EDT active Amitriptyline HCl 25 MG eCW1 ([facility]) Amitriptyline Hydrochloride 25 MG Oral Tablet Amitript yline HCl 25 MG Amitriptyline HCl 25 MG 12/06/2019 12:00:00 AM EDT active Amitriptyline HCl 25 MG eCW1 ([facility]) Amitriptyline Hydrochloride 25 MG Oral Tablet Amitript yline HCl 25 MG Amitriptyline HCl 25 MG 12/06/2019 12:00:00 AM EDT active Amitriptyline HCl 25 MG eCW1 ([facility]) Amitriptyline Hydrochloride 25 MG Oral Tablet Amitript yline HCl 25 MG Amitriptyline HCl 25 MG 12/06/2019 12:00:00 AM EDT active Amitriptyline HCl 25 MG eCW1 ([facility]) Amitriptyline Hydrochloride 25 MG Oral Tablet Amitript yline HCl 25 MG Amitriptyline HCl 25 MG 12/06/2019 12:00:00 AM EDT active Amitriptyline HCl 25 MG eCW1 ([facility]) Amitriptyline Hydrochloride 25 MG Oral Tablet Amitript yline HCl 25 MG Amitriptyline HCl 25 MG 12/06/2019 12:00:00 AM EDT active Amitriptyline HCl 25 MG eCW1 ([facility]) Botox 50 Units For Waste For 200 Units JW Modifier 11/27/2019 12:00:00 AM EDT completed [facility] ([facility]) Medication administered onsite Ciprofloxacin 250 MG Oral Tablet Ciprofloxacin HCL 11/27/2019 12:00 :00 AM EDT ORAL completed [facility] ([facility]) Botox 200 Units- I Vial 11/27/2019 12:00:00 AM EDT completed [facility] ([facility]) Medication administered onsite Alprazolam 1 MG Oral Tablet Alprazolam 10/11/2019 12:00:00 AM EDT ORAL completed [facility] ([facility]) cefdinir 300 MG Oral Capsule Cefdinir 09/06/2019 12:00:00 AM EDT ORAL active MEDENT ([facility] [place]) Estradiol 0.1 MG/ML Vaginal Cream [Estrace] Estrace 08/07 12:00:00 AM EDT active [facility] ( [facility]) Albuterol 0.83 MG/ML Inhalant Solution Albuterol Sulfate 0 07/12/2019 12:00:00 AM EDT active MEDENT ([facility] ) tramadol hydrochloride 50 MG Oral Tablet Tramadol Tramadol 05/25/2019 05:46:43 PM EDT 50 MG active [facility] tramadol hydrochloride 50 MG Oral Tablet Tramadol Tramadol 05/11/2019 05:08:36 PM EST 50 MG completed [facility] Docusate Sodium 100 MG Oral Capsule Docusate Sodium 04/03/2019 1 0:42:12 AM EST 100 MG active [facility] Docusate Sodium 100 MG Oral Capsule Docusate Sodium 04/03/2019 1 0:42:12 AM EST 100 MG active [facility] Cyclobenzaprine hydrochloride 10 MG Oral Tablet Cyclobenzapr ine 04/03/2019 10:42:12 AM EST 15 MG active [facility] Cyclobenzaprine hydrochloride 10 MG Oral Tablet Cyclobenzapr ine 04/03/2019 10:42:12 AM EST 15 MG active [facility] Cyclobenzaprine hydrochloride 10 MG Oral Tablet Cyclobenzapr ine 04/03/2019 10:42:12 AM EST 15 MG active [facility] Docusate Sodium 100 MG Oral Capsule Docusate Sodium 04/03/2019 1 0:42:12 AM EST 100 MG active [facility] Doxycycline Monohydrate 100 MG UNK 03/23/2019 12:00:00 AM EST active 1 tablet eCW1 ([facility]) Methylprednisolone 2 MG Oral Tablet Methylprednisolone 10/2019 03:11:04 PM EST 2 MG completed [facility] Methylprednisolone 2 MG Oral Tablet Methylprednisolone 10/2019 03:11:04 PM EST 2 MG completed [facility] Methylprednisolone 2 MG Oral Tablet Methylprednisolone 10/2019 03:11:04 PM EST 2 MG completed [facility] Methylprednisolone 2 MG Oral Tablet Methylprednisolone 10/2019 03:11:04 PM EST 2 MG completed [facility] Oxycodone Hydrochloride 5 MG Oral Capsule Oxycodone 2018 08:32:10 AM EST 5 MG active [facility] Oxycodone Hydrochloride 5 MG Oral Capsule Oxycodone 2018 08:32:10 AM EST 5 MG completed [facility] Oxycodone Hydrochloride 5 MG Oral Capsule Oxycodone 2018 08:32:10 AM EST 5 MG completed [facility] Oxycodone Hydrochloride 5 MG Oral Capsule Oxycodone 2018 08:32:10 AM EST 5 MG [facility] Acetaminophen 500 MG Oral Tablet Acetaminophen 03/06/2019 08:29:47 AM EST 500 MG active [facility] Acetaminophen 500 MG Oral Tablet Acetaminophen 03/06/2019 08:29:47 AM EST 500 MG active [facility] Acetaminophen 500 MG Oral Tablet Acetaminophen 03/06/2019 08:29:47 AM EST 500 MG active [facility] Acetaminophen 500 MG Oral Tablet Acetaminophen 03/06/2019 08:29:47 AM EST 500 MG active [facility] 0.3 ML Enoxaparin sodium 100 MG/ML Prefilled Syringe Enoxapa rin 03/06/2019 08:24:12 AM EST 30 MG completed [facility] 0.3 ML Enoxaparin sodium 100 MG/ML Prefilled Syringe Enoxapa rin 03/06/2019 08:24:12 AM EST 30 MG completed [facility] 0.3 ML Enoxaparin sodium 100 MG/ML Prefilled Syringe Enoxapa rin 03/06/2019 08:24:12 AM EST 30 MG completed [facility] 0.3 ML Enoxaparin sodium 100 MG/ML Prefilled Syringe Enoxapa rin 03/06/2019 08:24:12 AM EST 30 MG completed [facility] Acetaminophen 325 MG / Oxycodone Hydroch loride 5 MG Oral Tablet Oxycodone-Acetaminophen Oxycodone-Acetaminophen 02/22/2019 11:14:39 AM EST 1 TAB completed [facility] POLYETHYLENE GLYCOL 3350 142 MG/ML Oral Solution Polye thylene Glycol 3350 Polyethylene Glycol 3350 02/22/2019 11:14:39 AM EST 17 GM completed [facility] POLYETHYLENE GLYCOL 3350 142 MG/ML Oral Solution Polye thylene Glycol 3350 Polyethylene Glycol 3350 02/22/2019 11:14:39 AM EST 17 GM completed [facility] POLYETHYLENE GLYCOL 3350 142 MG/ML Oral Solution Polye thylene Glycol 3350 Polyethylene Glycol 3350 02/22/2019 11:14:39 AM EST 17 GM completed [facility] Acetaminophen 325 MG / Oxycodone Hydroch loride 5 MG Oral Tablet Oxycodone-Acetaminophen Oxycodone-Acetaminophen 02/22/2019 11:14:39 AM EST 1 TAB completed [facility] Acetaminophen 325 MG / Oxycodone Hydroch loride 5 MG Oral Tablet Oxycodone-Acetaminophen Oxycodone-Acetaminophen 02/22/2019 11:14:39 AM EST 1 TAB completed [facility] POLYETHYLENE GLYCOL 3350 142 MG/ML Oral Solution Polye thylene Glycol 3350 Polyethylene Glycol 3350 02/22/2019 11:14:39 AM EST 17 GM completed [facility] Acetaminophen 325 MG / Oxycodone Hydroch loride 5 MG Oral Tablet Oxycodone-Acetaminophen Oxycodone-Acetaminophen 02/22/2019 11:14:39 AM EST 1 TAB completed [facility] Cyclobenzaprine hydrochloride 5 MG Oral Tablet Cyclobenzapri ne 02/22/2019 11:07:47 AM EST 15 MG completed [facility] Cyclobenzaprine hydrochloride 5 MG Oral Tablet Cyclobenzapri ne 02/22/2019 11:07:47 AM EST 15 MG completed [facility] Cyclobenzaprine hydrochloride 5 MG Oral Tablet Cyclobenzapri ne 02/22/2019 11:07:47 AM EST 15 MG completed [facility] Cyclobenzaprine hydrochloride 5 MG Oral Tablet Cyclobenzapri ne 02/22/2019 11:07:47 AM EST 15 MG completed [facility] Clonazepam 0.5 MG Oral Tablet Clonazepam 02/21/2019 09:13:28 AM EST 0.5 MG completed [facility] Fluticasone Propion-Salmeterol 02/21/2019 09:13:28 AM EST 1 PUFFS completed [facility] Clonazepam 0.5 MG Oral Tablet Clonazepam 02/21/2019 09:13:28 AM EST 0.5 MG completed [facility] Fluticasone Propion-Salmeterol 02/21/2019 09:13:28 AM EST 1 PUFFS completed [facility] Clonazepam 0.5 MG Oral Tablet Clonazepam 02/21/2019 09:13:28 AM EST 0.5 MG completed [facility] Docusate Sodium 100 MG Oral Capsule Docusate Sodium 02/21/2019 0 9:13:28 AM EST 100 MG completed [facility] Docusate Sodium 100 MG Oral Capsule Docusate Sodium 02/21/2019 0 9:13:28 AM EST 100 MG completed [facility] Docusate Sodium 100 MG Oral Capsule Docusate Sodium 02/21/2019 0 9:13:28 AM EST 100 MG completed [facility] Fluticason Propion-Salmeterol 02/21/2019 09:13:28 AM EST 1 PUFFS completed [facility] Docusate Sodium 100 MG Oral Capsule Docusate Sodium 02/21/2019 0 9:13:28 AM EST 100 MG completed [facility] Prednisone 20 MG Oral Tablet Prednisone 02/20/2019 02:42:04 AM EST 10 MG completed [facility] Prednisone 20 MG Oral Tablet Prednisone 02/20/2019 02:42:04 AM EST 10 MG completed [facility] Prednisone 20 MG Oral Tablet Prednisone 02/20/2019 02:42:04 AM EST 10 MG completed [facility] Prednisone 20 MG Oral Tablet Prednisone 02/20/2019 02:42:04 AM EST 10 MG completed [facility] celecoxib 200 MG Oral Capsule Celecoxib Celecoxib 02/19/2019 05: 19:17 PM EST 200 MG completed [facility] Indapamide 2.5 MG Oral Tablet Indapamide 02/19/2019 05:19:17 PM EST 2.5 MG completed [facility] Indapamide 2.5 MG Oral Tablet Indapamide 02/19/2019 05:19:17 PM EST 2.5 MG completed [facility] celecoxib 200 MG Oral Capsule Celecoxib Celecoxib 02/19/2019 05: 19:17 PM EST 200 MG completed [facility] celecoxib 200 MG Oral Capsule Celecoxib Celecoxib 02/19/2019 05: 19:17 PM EST 200 MG completed [facility] Indapamide 2.5 MG Oral Tablet Indapamide 02/19/2019 05:19:17 PM EST 2.5 MG completed [facility] celecoxib 200 MG Oral Capsule Celecoxib Celecoxib 02/19/2019 05: 19:17 PM EST 200 MG completed [facility] Indapamide 2.5 MG Oral Tablet Indapamide 02/19/2019 05:19:17 PM EST 2.5 MG completed [facility] Prednisone 20 MG Oral Tablet prednisone 20 mg tablet TAKE ONE TABLET BY MOUTH ONCE DAILY FOR FIVE DAYS prednisone 20 mg tablet TAKE ONE TABLET BY MOUTH ONCE DAILY FOR FIVE DAYS completed pr ednisone 20 MG Oral Tablet MARILIA ([facility]) Estradiol 0.1 MG/ML Vaginal Cream estradiol 0.01% (0.1 mg/gram) vaginal cream estradiol 0.01% (0.1 mg/gram) vaginal cream completed estradiol 0.1 MG/ML Vaginal Cream MARILIA ([facility]) Acetaminophen 325 MG / Oxycodone Hydroch loride 5 MG Oral Tablet oxycodone- acetaminophen 5 mg-325 mg tablet oxycodone-acetaminophen 5 mg-325 mg tablet completed acetaminop hen 325 MG / oxycodone hydrochloride 5 MG Oral Tablet MARILIA ([facility]) Acetaminophen 325 MG / Oxycodone Hydroch loride 5 MG Oral Tablet oxycodone- acetaminophen 5 mg-325 mg tablet oxycodone-acetaminophen 5 mg-325 mg tablet completed acetaminop hen 325 MG / oxycodone hydrochloride 5 MG Oral Tablet MARILIA ([facility]) Alprazolam 1 MG Oral Tablet alprazolam 1 mg tablet alprazolam 1 mg ta blet completed alprazolam 1 MG Oral Tablet MARILIA ([facility]) Amoxicillin 500 MG / Clavulanate 125 MG Oral Tablet amoxicillin 500 mg-potassium clavulanate 125 mg tablet TAKE ONE TABLET BY MOUTH EVERY TWELVE HOURS amoxicillin 500 mg-potassium clavulanate 125 mg tablet TAKE ONE TABLET BY MOUTH EVERY TWELVE HOURS completed amoxicillin 500 MG / clavulanate 125 MG Oral Tablet MARILIA ([facility]) Prednisone 20 MG Oral Tablet prednisone 20 mg tablet TAKE ONE TABLET BY MOUTH ONCE DAILY FOR FIVE DAYS prednisone 20 mg tablet TAKE ONE TABLET BY MOUTH ONCE DAILY FOR FIVE DAYS completed pr ednisone 20 MG Oral Tablet MARILIA ([facility]) Methylprednisolone 2 MG Oral Tablet [Med rol] Medrol 2 mg tablet 1 tablet every other day Medrol 2 mg tablet 1 tablet every other day completed methylprednisolone 2 MG Oral Tablet [Medrol] MARILIA ([facility]) Prednisone 20 MG Oral Tablet prednisone 20 mg tablet TAKE ONE TABLET BY MOUTH ONCE DAILY FOR FIVE DAYS prednisone 20 mg tablet TAKE ONE TABLET BY MOUTH ONCE DAILY FOR FIVE DAYS completed pr ednisone 20 MG Oral Tablet MARILIA ([facility] [email or web address]) Methylprednisolone 2 MG Oral Tablet [Med rol] Medrol 2 mg tablet 1 tablet every other day Medrol 2 mg tablet 1 tablet every other day completed methylprednisolone 2 MG Oral Tablet [Medrol] MARILIA ([facility]) Oxycodone Hydrochloride 5 MG Oral Tablet oxycodone 5 mg tablet TAKE 1 TO 2 TABLETS BY MOUTH EVERY FOUR HOURS NEEDED FOR PAIN MAX DAILY DOSE 12 CAPSULES oxycodone 5 mg tablet TAKE 1 TO 2 TABLETS BY MOUTH EVERY FOUR HOURS NEEDED FOR PAIN MAX DAILY DOSE 12 CAPSULES co mpleted oxycodone hydrochloride 5 MG Oral Tablet [facility] ([facility]) Acetaminophen 325 MG / Oxycodone Hydroch loride 5 MG Oral Tablet oxycodone- acetaminophen 5 mg-325 mg tablet oxycodone-acetaminophen 5 mg-325 mg tablet completed acetaminop hen 325 MG / oxycodone hydrochloride 5 MG Oral Tablet [facility] ([facility]) Methylprednisolone 4 MG Oral Tablet methylprednisolone 4 mg tablet 1 tab daily methylprednisolone 4 mg tablet 1 tab daily completed methylprednisolone 4 MG Oral Tablet [facility] ([facility]) Estradiol 0.1 MG/ML Vaginal Cream estradiol 0.01% (0.1 mg/gram) vaginal cream estradiol 0.01% (0.1 mg/gram) vaginal cream completed estradiol 0.1 MG/ML Vaginal Cream [facility] ([facility]) Doxycycline Monohydrate 100 MG Oral Caps ule doxycycline monohydrate 100 mg capsule TAKE ONE CAPSULE BY MOUTH TWICE DAILY FOR SEVEN DAYS doxycycline monohydrate 100 mg capsule TAKE ONE CAPSULE BY MOUTH TWICE DAILY FOR SEVEN DAYS completed doxycycline mo nohydrate 100 MG Oral Capsule [facility] ([facility]) Methylprednisolone 4 MG Oral Tablet methylprednisolone 4 mg tablet 1 tab daily methylprednisolone 4 mg tablet 1 tab daily completed methylprednisolone 4 MG Oral Tablet [facility] ([facility]) tramadol hydrochloride 50 MG Oral Tablet tramadol 50 mg tablet TAKE ONE TABLET BY MOUTH EVERY 6 HOURS NEEDED FOR PAIN MAX DAILY DOSE FOUR TABLETS tramadol 50 mg tablet TAKE ONE TABLET BY MOUTH EVERY 6 HOURS NEEDED FOR PAIN MAX DAILY DOSE FOUR TABLETS completed tramadol hydrochloride 50 MG Oral Tablet [facility] ([facility]) Doxycycline Monohydrate 100 MG Oral Caps ule doxycycline monohydrate 100 mg capsule TAKE ONE CAPSULE BY MOUTH TWICE DAILY FOR SEVEN DAYS doxycycline monohydrate 100 mg capsule TAKE ONE CAPSULE BY MOUTH TWICE DAILY FOR SEVEN DAYS completed doxycycline mo nohydrate 100 MG Oral Capsule [facility] ([facility]) Amoxicillin 500 MG / Clavulanate 125 MG Oral Tablet amoxicillin 500 mg-potassium clavulanate 125 mg tablet TAKE ONE TABLET BY MOUTH EVERY TWELVE HOURS amoxicillin 500 mg-potassium clavulanate 125 mg tablet TAKE ONE TABLET BY MOUTH EVERY TWELVE HOURS completed amoxicillin 500 MG / clavulanate 125 MG Oral Tablet [facility] ([facility]) 0.3 ML Enoxaparin sodium 100 MG/ML Prefi lled Syringe enoxaparin 30 mg/0.3 mL subcutaneous syringe INJECT 0.3 MILLILITERS SUBCUTANEOUSLY EVERY 12 HOURS FOR TWO WEEKS enoxaparin 30 mg/0.3 mL subcutaneous syr travis INJECT 0.3 MILLILITERS SUBCUTANEOUSLY EVERY 12 HOURS FOR TWO WEEKS completed 0.3 ML enoxaparin sodium 100 MG/ML Prefilled Syringe [facility] ([facility]) Prednisone 20 MG Oral Tablet prednisone 20 mg tablet TAKE ONE TABLET BY MOUTH ONCE DAILY FOR FIVE DAYS prednisone 20 mg tablet TAKE ONE TABLET BY MOUTH ONCE DAILY FOR FIVE DAYS completed pr ednisone 20 MG Oral Tablet [facility] ([facility]) 0.3 ML Enoxaparin sodium 100 MG/ML Prefi lled Syringe enoxaparin 30 mg/0.3 mL subcutaneous syringe INJECT 0.3 MILLILITERS SUBCUTANEOUSLY EVERY 12 HOURS FOR TWO WEEKS enoxaparin 30 mg/0.3 mL subcutaneous syr travis INJECT 0.3 MILLILITERS SUBCUTANEOUSLY EVERY 12 HOURS FOR TWO WEEKS completed 0.3 ML enoxaparin sodium 100 MG/ML Prefilled Syringe [facility] ([facility]) Ciprofloxacin 250 MG Oral Tablet ciprofl oxacin 250 mg tablet TAKE ONE TABLET BY MOUTH TWICE DAILY FOR 3 DAYS ciprofloxacin 250 mg tablet TAKE ONE TAB LET BY MOUTH TWICE DAILY FOR 3 DAYS completed ciprofloxacin 250 MG Oral Tablet [facility] ([facility]) Methylprednisolone 2 MG Oral Tablet [Med rol] Medrol 2 mg tablet 1 tablet every other day Medrol 2 mg tablet 1 tablet every other day completed methylprednisolone 2 MG Oral Tablet [Medrol] [facility] ([facility]) Ciprofloxacin 250 MG Oral Tablet ciprofl oxacin 250 mg tablet TAKE ONE TABLET BY MOUTH TWICE DAILY FOR 3 DAYS ciprofloxacin 250 mg tablet TAKE ONE TAB LET BY MOUTH TWICE DAILY FOR 3 DAYS completed ciprofloxacin 250 MG Oral Tablet [facility] ([facility]) Oxycodone Hydrochloride 5 MG Oral Tablet oxycodone 5 mg tablet TAKE 1 TO 2 TABLETS BY MOUTH EVERY FOUR HOURS NEEDED FOR PAIN MAX DAILY DOSE 12 CAPSULES oxycodone 5 mg tablet TAKE 1 TO 2 TABLETS BY MOUTH EVERY FOUR HOURS NEEDED FOR PAIN MAX DAILY DOSE 12 CAPSULES co mpleted oxycodone hydrochloride 5 MG Oral Tablet [facility] ([facility]) cefdinir 300 MG Oral Capsule cefdinir 300 mg capsule cefdinir 30 0 mg capsule completed cefdinir 300 M G Oral Capsule [facility] ([facility]) Amoxicillin 500 MG / Clavulanate 125 MG Oral Tablet amoxicillin 500 mg-potassium clavulanate 125 mg tablet TAKE ONE TABLET BY MOUTH EVERY TWELVE HOURS amoxicillin 500 mg-potassium clavulanate 125 mg tablet TAKE ONE TABLET BY MOUTH EVERY TWELVE HOURS completed amoxicillin 500 MG / clavulanate 125 MG Oral Tablet [facility] ([facility]) Doxycycline Monohydrate 100 MG Oral Caps ule doxycycline monohydrate 100 mg capsule TAKE ONE CAPSULE BY MOUTH TWICE DAILY FOR SEVEN DAYS doxycycline monohydrate 100 mg capsule TAKE ONE CAPSULE BY MOUTH TWICE DAILY FOR SEVEN DAYS completed doxycycline mo nohydrate 100 MG Oral Capsule [facility] ([facility]) Oxycodone Hydrochloride 5 MG Oral Tablet oxycodone 5 mg tablet TAKE 1 TO 2 TABLETS BY MOUTH EVERY FOUR HOURS NEEDED FOR PAIN MAX DAILY DOSE 12 CAPSULES oxycodone 5 mg tablet TAKE 1 TO 2 TABLETS BY MOUTH EVERY FOUR HOURS NEEDED FOR PAIN MAX DAILY DOSE 12 CAPSULES co mpleted oxycodone hydrochloride 5 MG Oral Tablet [facility] ([facility]) glimepiride 2 MG Oral Tablet glimepiride 2 mg tablet TAKE ONE TABLET BY MOUTH @8AM and TAKE ONE TABLET @8PM glimepiride 2 mg tablet TAKE ONE TABLET BY MOUTH @8AM and TAKE ONE TABLET @8PM complete d glimepiride 2 MG Oral Tablet [facility] ([facility]) Oxycodone Hydrochloride 5 MG Oral Tablet oxycodone 5 mg tablet TAKE 1 TO 2 TABLETS BY MOUTH EVERY FOUR HOURS NEEDED FOR PAIN MAX DAILY DOSE 12 CAPSULES oxycodone 5 mg tablet TAKE 1 TO 2 TABLETS BY MOUTH EVERY FOUR HOURS NEEDED FOR PAIN MAX DAILY DOSE 12 CAPSULES co mpleted oxycodone hydrochloride 5 MG Oral Tablet [facility] ([facility]) tramadol hydrochloride 50 MG Oral Tablet tramadol 50 mg tablet TAKE ONE TABLET BY MOUTH EVERY 6 HOURS NEEDED FOR PAIN MAX DAILY DOSE FOUR TABLETS tramadol 50 mg tablet TAKE ONE TABLET BY MOUTH EVERY 6 HOURS NEEDED FOR PAIN MAX DAILY DOSE FOUR TABLETS completed tramadol hydrochloride 50 MG Oral Tablet [facility] ([facility]) tramadol hydrochloride 50 MG Oral Tablet tramadol 50 mg tablet TAKE ONE TABLET BY MOUTH EVERY 6 HOURS NEEDED FOR PAIN MAX DAILY DOSE FOUR TABLETS tramadol 50 mg tablet TAKE ONE TABLET BY MOUTH EVERY 6 HOURS NEEDED FOR PAIN MAX DAILY DOSE FOUR TABLETS completed tramadol hydrochloride 50 MG Oral Tablet [facility] ([facility]) Acetaminophen 325 MG / Oxycodone Hydroch loride 5 MG Oral Tablet oxycodone- acetaminophen 5 mg-325 mg tablet oxycodone-acetaminophen 5 mg-325 mg tablet completed acetaminop hen 325 MG / oxycodone hydrochloride 5 MG Oral Tablet [facility] ([facility]) Estradiol 0.1 MG/ML Vaginal Cream estradiol 0.01% (0.1 mg/gram) vaginal cream estradiol 0.01% (0.1 mg/gram) vaginal cream completed estradiol 0.1 MG/ML Vaginal Cream [facility] ([facility]) cefdinir 300 MG Oral Capsule cefdinir 300 mg capsule cefdinir 30 0 mg capsule completed cefdinir 300 M G Oral Capsule [facility] ([facility]) cefdinir 300 MG Oral Capsule cefdinir 300 mg capsule cefdinir 30 0 mg capsule completed cefdinir 300 M G Oral Capsule [facility] ([facility]) Doxycycline Monohydrate 100 MG Oral Caps ule doxycycline monohydrate 100 mg capsule TAKE ONE CAPSULE BY MOUTH TWICE DAILY FOR SEVEN DAYS doxycycline monohydrate 100 mg capsule TAKE ONE CAPSULE BY MOUTH TWICE DAILY FOR SEVEN DAYS completed doxycycline mo nohydrate 100 MG Oral Capsule [facility] ([facility]) 0.3 ML Enoxaparin sodium 100 MG/ML Prefi lled Syringe enoxaparin 30 mg/0.3 mL subcutaneous syringe INJECT 0.3 MILLILITERS SUBCUTANEOUSLY EVERY 12 HOURS FOR TWO WEEKS enoxaparin 30 mg/0.3 mL subcutaneous syr travis INJECT 0.3 MILLILITERS SUBCUTANEOUSLY EVERY 12 HOURS FOR TWO WEEKS completed 0.3 ML enoxaparin sodium 100 MG/ML Prefilled Syringe [facility] ([facility]) Ciprofloxacin 250 MG Oral Tablet ciprofl oxacin 250 mg tablet TAKE ONE TABLET BY MOUTH TWICE DAILY FOR 3 DAYS ciprofloxacin 250 mg tablet TAKE ONE TAB LET BY MOUTH TWICE DAILY FOR 3 DAYS completed ciprofloxacin 250 MG Oral Tablet [facility] ([facility]) Amoxicillin 500 MG / Clavulanate 125 MG Oral Tablet amoxicillin 500 mg-potassium clavulanate 125 mg tablet TAKE ONE TABLET BY MOUTH EVERY TWELVE HOURS amoxicillin 500 mg-potassium clavulanate 125 mg tablet TAKE ONE TABLET BY MOUTH EVERY TWELVE HOURS completed amoxicillin 500 MG / clavulanate 125 MG Oral Tablet [facility] ([facility]) Methylprednisolone 2 MG Oral Tablet [Med rol] Medrol 2 mg tablet 1 tablet every other day Medrol 2 mg tablet 1 tablet every other day completed methylprednisolone 2 MG Oral Tablet [Medrol] [facility] ([facility]) Alprazolam 1 MG Oral Tablet alprazolam 1 mg tablet alprazolam 1 mg ta blet completed alprazolam 1 MG Oral Tablet [facility] ([facility]) Methylprednisolone 4 MG Oral Tablet methylprednisolone 4 mg tablet 1 tab daily methylprednisolone 4 mg tablet 1 tab daily completed methylprednisolone 4 MG Oral Tablet [facility] ([facility]) Doxycycline Monohydrate 100 MG Oral Caps ule doxycycline monohydrate 100 mg capsule TAKE ONE CAPSULE BY MOUTH TWICE DAILY FOR SEVEN DAYS doxycycline monohydrate 100 mg capsule TAKE ONE CAPSULE BY MOUTH TWICE DAILY FOR SEVEN DAYS completed doxycycline mo nohydrate 100 MG Oral Capsule [facility] ([facility]) Estradiol 0.1 MG/ML Vaginal Cream estradiol 0.01% (0.1 mg/gram) vaginal cream estradiol 0.01% (0.1 mg/gram) vaginal cream completed estradiol 0.1 MG/ML Vaginal Cream [facility] ([facility]) Methylprednisolone 4 MG Oral Tablet methylprednisolone 4 mg tablet 1 tab daily methylprednisolone 4 mg tablet 1 tab daily completed methylprednisolone 4 MG Oral Tablet [facility] ([facility]) Methylprednisolone 4 MG Oral Tablet methylprednisolone 4 mg tablet 1 tab daily methylprednisolone 4 mg tablet 1 tab daily completed methylprednisolone 4 MG Oral Tablet [facility] ([facility]) Alprazolam 1 MG Oral Tablet alprazolam 1 mg tablet alprazolam 1 mg ta blet completed alprazolam 1 MG Oral Tablet [facility] ([facility]) Ciprofloxacin 250 MG Oral Tablet ciprofl oxacin 250 mg tablet TAKE ONE TABLET BY MOUTH TWICE DAILY FOR 3 DAYS ciprofloxacin 250 mg tablet TAKE ONE TAB LET BY MOUTH TWICE DAILY FOR 3 DAYS completed ciprofloxacin 250 MG Oral Tablet [facility] ([facility]) Acetaminophen 325 MG / Oxycodone Hydroch loride 5 MG Oral Tablet oxycodone- acetaminophen 5 mg-325 mg tablet oxycodone-acetaminophen 5 mg-325 mg tablet completed acetaminop hen 325 MG / oxycodone hydrochloride 5 MG Oral Tablet [facility] ([facility]) 0.3 ML Enoxaparin sodium 100 MG/ML Prefi lled Syringe enoxaparin 30 mg/0.3 mL subcutaneous syringe INJECT 0.3 MILLILITERS SUBCUTANEOUSLY EVERY 12 HOURS FOR TWO WEEKS enoxaparin 30 mg/0.3 mL subcutaneous syr travis INJECT 0.3 MILLILITERS SUBCUTANEOUSLY EVERY 12 HOURS FOR TWO WEEKS completed 0.3 ML enoxaparin sodium 100 MG/ML Prefilled Syringe [facility] ([facility]) cefdinir 300 MG Oral Capsule cefdinir 300 mg capsule cefdinir 30 0 mg capsule completed cefdinir 300 M G Oral Capsule [facility] ([facility]) Estradiol 0.1 MG/ML Vaginal Cream estradiol 0.01% (0.1 mg/gram) vaginal cream estradiol 0.01% (0.1 mg/gram) vaginal cream completed estradiol 0.1 MG/ML Vaginal Cream [facility] ([facility]) 0.3 ML Enoxaparin sodium 100 MG/ML Prefi lled Syringe enoxaparin 30 mg/0.3 mL subcutaneous syringe INJECT 0.3 MILLILITERS SUBCUTANEOUSLY EVERY 12 HOURS FOR TWO WEEKS enoxaparin 30 mg/0.3 mL subcutaneous syr travis INJECT 0.3 MILLILITERS SUBCUTANEOUSLY EVERY 12 HOURS FOR TWO WEEKS completed 0.3 ML enoxaparin sodium 100 MG/ML Prefilled Syringe [facility] ([facility]) Prednisone 20 MG Oral Tablet prednisone 20 mg tablet TAKE ONE TABLET BY MOUTH ONCE DAILY FOR FIVE DAYS prednisone 20 mg tablet TAKE ONE TABLET BY MOUTH ONCE DAILY FOR FIVE DAYS completed pr ednisone 20 MG Oral Tablet [facility] ([facility]) Alprazolam 1 MG Oral Tablet alprazolam 1 mg tablet alprazolam 1 mg ta blet completed alprazolam 1 MG Oral Tablet [facility] ([facility]) Methylprednisolone 2 MG Oral Tablet [Med rol] Medrol 2 mg tablet 1 tablet every other day Medrol 2 mg tablet 1 tablet every other day completed methylprednisolone 2 MG Oral Tablet [Medrol] [facility] ([facility]) Ciprofloxacin 250 MG Oral Tablet ciprofl oxacin 250 mg tablet TAKE ONE TABLET BY MOUTH TWICE DAILY FOR 3 DAYS ciprofloxacin 250 mg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 ([facility]) Rgu3zpj-Pjcz 77 % [facility] ([facility]) Fev6-Pre 2.51 L [facility] ([facility]) Fev6-LLN 2.62 L [facility] ([facility]) Ftg7rux-Frz 76 % [facility] ([facility]) Qvk6gtf-%Pred-Pre 97 % [facility] ([facility]) Ipq6mbe-OTY 68 % [facility] ([facility]) Hak9piu-%Pred-Pre 102 % [facility] ([facility]) Hef4bvy-Tjpk 96 % [facility] ([facility]) Sik9heo-Zbt 99 % [facility] ([facility]) FEFMax-Pre 5.72 L/E/sec [facility] ([facility]) FEFMax-Pred 6.43 L/E/sec [facility] ([facility]) FEFMax-%Pred-Pre 88 L/E/sec [facility] ([facility]) Stt9491-Aijs 2.34 L/E/sec [facility] ([facility]) FEFMax-LLN 4.61 L/E/sec [facility] ([facility]) Jhp6828-Fai 1.46 L/E/sec [facility] ([facility]) Azx4379-IIN 1.02 L/E/sec [facility] ([facility]) ExpTime-Pre 7.33 sec [facility] ([facility]) Ywz5854-%Pred-Pre 62 L/E/sec [facility] ([facility]) Hyg3nqg2-Ihi 76 % [facility] ([facility]) Rza8wkw9-%Pred-Pre 95 % [facility] ([facility]) Hbt7tkx0-Siyr 80 % [facility] ([facility]) Cji1vuh8-WDA 71 % [facility] ([facility]) ID Date Data Source [id number] 01/11/2020 11:49:00 AM EST [facility] Name Value Range Interpretation Code Description Data Tashia rce(s) Supporting Document(s) SAMARA BY DNA PROBE NEGATIVE NEGATIVE [facility] GARDNERELLA BY DNA PROBE POSITIVE NEGATIVE [facility] TRICHOMONAS BY DNA PROBE NEGATIVE NEGATIVE [facility] TESTING PERFORMED BY NUCLEIC ACID HYBRI DIZATION ID Date Data Source [id number] 01/10/2020 02:03:00 PM EST [facility] ([facility]) Name Value Range Interpretation Code Description Data Tashia rce(s) Supporting Document(s) Bacteria identified in Vaginal fluid by Aerobe culture Laborator y test result [facility] ([facility]) ID Date Data Source [id number] 01/10/2020 02:03:00 PM EST [facility] ([facility]) Name Value Range Interpretation Code Description Data Tashia rce(s) Supporting Document(s) Gardnerella By Dna Probe Laboratory test result Abnormal (applies to non- numeric results) [facility] ([facility]) Samara sp rRNA [Presence] in Vaginal fluid by DNA probe Lab oratory test result [facility] ([facility]) Trichomonas vaginalis rRNA [Presence] in Genital speci men by DNA probe Laboratory test result [facility] ([facility]) TESTING PERFORMED BY NUCLEIC ACID HYBRID IZATION ID Date Data Source [id number] 01/12/2020 11:21:00 AM EST [facility] Run: 01/12/20 1121 INTERFACED REPORT Name: Cassie Jiang Age/Sex: 64/F Location: [facility] Acct: [id number] Unit: [id number] Status: REG REF Room/Bed: Re01/10/20 Disch: Att Dr: Amira Garg Specimen #: [id number] Ordered : 01/10/2007/24/1930 Collected : 01/10/2007/24/1401 By: [...] rce(s) Supporting Document(s) ID Date Data Source [id number] 01/10/2020 02:02:00 PM EST EV[facility] ([facility] Name Value Range Interpretation Code Description Data Tashia rce(s) Supporting Document(s) Bacteria identified in Urine by Culture Laboratory test result [facility] ([facility]) <content> --------</content>
<content>Run: 01/12/20 1121 INTERFACED REPORT</content>
<content> </content>
<content>Name: Cassie Jiang Age/Sex: 64/F Location: [facility]</content>
<content>Acct: [id number] Unit: [id number] Status: REG REF Room/Bed:</content>
<content>Re01/10/20 Disch: Att Dr: Amira Garg</content>
<content> </content>
<content></content>
<content>Specimen #: [id number] Ordered : 01/10/2007/24/1930</content>
<content>Collected : 01/10/2007/24/1401 By: [...] REPORT </content>
<content></content> ID Date Data Source [id number] 01/10/2020 02:01:00 PM EST [facility] ([facility] Name Value Range Interpretation Code Description Data Tashia rce(s) Supporting Document(s) Glucose [Presence] in Urine Laboratory test result [facility] ([facility]) Ua Nitrite Laboratory test result [facility] ([facility]) Ua Leuko Laboratory test result [facility] ([facility]) Protein [Presence] in Urine by Test strip Laboratory test result [facility] ([facility]) Ketones [Presence] in Urine by Test strip 15 mg/dL [facility] ([facility]) Color of Urine Laboratory test result [facility] ([facility]) Blood [Presence] in Urine by Visual Laboratory test result [facility] ([facility]) pH of Urine by Test strip 6.5 5.0-7.5 [facility] ([facility]) Ua Specific [place] 1.020 1.003-1.030 [facility] NT ([facility]) Clarity of Urine Laboratory test result [facility] ([facility]) Urobilinogen [Mass/volume] in Urine by Test strip 0.2 E.U./dL 0.0-1.0 [facility] ([facility]) Bilirubin.total [Presence] in Urine by Test strip Laboratory test res ult [facility] ([facility]) ID Date Data Source [id number] 01/10/2020 01:44:00 PM EST [facility] ([facility]) Name Value Range Interpretation Code Description Data Tashia rce(s) Supporting Document(s) Glucose [Presence] in Urine Laboratory test result [facility] ([facility]) Ua Nitrite Laboratory test result [facility] ([facility]) Ua Leuko Laboratory test result ME DENT ([facility]) Protein [Presence] in Urine by Test strip Laboratory test result MEDENT ([facility]) Ketones [Presence] in Urine by Test strip 15 mg/dL MEDENT ([facility]) Color of Urine Laboratory test result MEDENT ([facility]) Blood [Presence] in Urine by Visual Laboratory test result MEDENT ([facility]) Ua Specific [place] 1.025 1.003-1.030 MEDE NT ([facility]) Clarity of Urine Laboratory test result MEDENT ([facility]) pH of Urine by Test strip 6.0 5.0-7.5 MEDENT ([facility]) Urobilinogen [Mass/volume] in Urine by Test strip 0.2 E.U./dL 0.0-1.0 EVELYNE ([facility] [place]) Bilirubin.total [Presence] in Urine by Test strip Laboratory test res ult EVELYNE ([facility] [place]) ID Date Data Source [id number] 12/13/2019 12:42:00 PM EDT [facility] Run: 12/13/19 1243 INTERFACED REPORT Name: Cassie Jiang Age/Sex: 64/F Location: [facility] Acct: [id number] Unit: [id number] Status: REG REF Room/Bed: Re12/11/19 Disch: Att Dr: Monica Bal MD Specimen #: [id number] Ordered : 12/11/1908/24/2102 Collected : 12/11/1908/25/1547 By: [...] jaime(s) Supporting Document(s) ID Date Data Source [id number] 12/11/2019 03:48:00 PM EDT MEDREMY ([facility] [place]) Name Value Range Interpretation Code Description [facility] Supporting Document(s) Bacteria identified in Urine by Culture Laboratory test result MEDENT ([facility] [place]) <content> --------</content>
<content>Run: 12/13/19 1243 INTERFACED REPORT</content>
<content> </content>
<content>Name: Cassie Jiang Age/Sex: 64/F Location: [facility]</content>
<content>Acct: [id number] Unit: [id number] Status: REG REF Room/Bed:</content>
<content>Re12/11/19 Disch: Junior Dr: Monica Bal MD</content>
<content> </content>
<content></content>
<content>Specimen #: [id number] Ordered : 12/11/1908/24/2102</content>
<content>Collected : 12/11/1908/25/1547 By: [...] REPORT </content>
<content></content> ID Date Data Source [id number] 11/28/2019 12:00:00 AM EDT MARILIA ([facility]) Name Value Range Interpretation Code Description Data Tashia rce(s) Supporting Document(s) ID Date Data Source [id number] 11/28/2019 12:00:00 AM EDT MARILIA ([facility]) Name Value Range Interpretation Code Description Data Tashia rce(s) Supporting Document(s) ID Date Data Source [id number] 11/28/2019 12:00:00 AM EDT MARILIA ([facility]) Name Value Range Interpretation Code Description Data Tashia rce(s) Supporting Document(s) ID Date Data Source [id number] 11/28/2019 12:00:00 AM EDT MARILIA ([facility]) Name Value Range Interpretation Code Description Data Tashia rce(s) Supporting Document(s) ID Date Data Source [id number] 11/28/2019 12:00:00 AM EDT [facility] Name Value Range Interpretation Code Description Data Tashia rce(s) Supporting Document(s) SARS-CoV-2 [facility] This lab was ordered by [facility]-COVID19 and reported by [employer]. ID Date Data Source [id number] 11/28/2019 12:00:00 AM EDT MARILIA ([facility]) Name Value Range Interpretation Code Description Data Tashia rce(s) Supporting Document(s) ID Date Data Source [id number] 11/28/2019 12:00:00 AM EDT MARILIA ([facility]) Name Value Range Interpretation Code Description Data Tashia rce(s) Supporting Document(s) ID Date Data Source [id number] 11/27/2019 11:57:00 AM EDT MEDENT ([facility]) Name Value Range Interpretation Code Description Data Tashia rce(s) Supporting Document(s) Protein [Presence] in Urine by Test strip Laboratory test result MEDENT ([facility]) Glucose [Presence] in Urine Laboratory test result MEDENT ([facility] [place]) Ua Nitrite Laboratory test result ME DENT ([facility]) Color of Urine Laboratory test result MEDENT ([facility]) Ua Leuko Laboratory test result ME DENT ([facility]) Blood [Presence] in Urine by Visual Laboratory test result MEDENT ([facility]) Clarity of Urine Laboratory test result MEDENT ([facility]) Ketones [Presence] in Urine by Test strip Laboratory test result MEDENT ([facility]) Ua Specific [place] Laboratory test result 1.003-1.030 MEDENT ([facility]) Urobilinogen [Mass/volume] in Urine by Test strip 0.2 E.U./dL 0.0-1.0 MEDENT ([facility]) Bilirubin.total [Presence] in Urine by Test strip Laboratory test res ult MEDENT ([facility]) pH of Urine by Test strip 5.5 5.0-7.5 MEDENT ([facility]) ID Date Data Source [id number] 11/23/2019 12:00:00 AM EDT MARILIA ([facility]) Name Value Range Interpretation Code Description Data Tashia rce(s) Supporting Document(s) ID Date Data Source [id number] 11/23/2019 12:00:00 AM EDT MARILIA ([facility]) Name Value Range Interpretation Code Description Data Tashia rce(s) Supporting Document(s) ID Date Data Source [id number] 11/23/2019 12:00:00 AM EDT MARILIA ([facility]) Name Value Range Interpretation Code Description Data Tashia rce(s) Supporting Document(s) ID Date Data Source [id number] 11/23/2019 12:00:00 AM EDT MARILIA ([facility]) Name Value Range Interpretation Code Description Data Tashia rce(s) Supporting Document(s) ID Date Data Source [id number] 11/23/2019 12:00:00 AM EDT MARILIA ([facility]) Name Value Range Interpretation Code Description Data Tashia rce(s) Supporting Document(s) ID Date Data Source [id number] 11/23/2019 12:00:00 AM EDT [facility] Name Value Range Interpretation Code Description Data Tashia rce(s) Supporting Document(s) SARS-CoV-2 [facility] This lab was ordered by [email or web address]-COVID19 and reported by [employer]. ID Date Data Source [id number] 11/23/2019 12:00:00 AM EDT MARILIA ([facility]) Name Value Range Interpretation Code Description Data Tashia rce(s) Supporting Document(s) ID Date Data Source [id number] 11/23/2019 12:00:00 AM EDT MARILIA ([facility]) Name Value Range Interpretation Code Description Data Tashia rce(s) Supporting Document(s) ID Date Data Source [id number] 11/02/2019 12:00:00 AM EDT MARILIA ([facility]) Name Value Range Interpretation Code Description Data Tashia rce(s) Supporting Document(s) ID Date Data Source [id number] 11/02/2019 12:00:00 AM EDT MARILIA ([facility]) Name Value Range Interpretation Code Description Data Tashia rce(s) Supporting Document(s) ID Date Data Source [id number] 11/02/2019 12:00:00 AM EDT MARILIA ([facility]) Name Value Range Interpretation Code Description Data Tashia rce(s) Supporting Document(s) ID Date Data Source [id number] 11/02/2019 12:00:00 AM EDT MARILIA ([facility]) Name Value Range Interpretation Code Description Data Tashia rce(s) Supporting Document(s) ID Date Data Source [id number] 11/02/2019 12:00:00 AM EDT MARILIA ([facility]) Name Value Range Interpretation Code Description Data Tashia rce(s) Supporting Document(s) ID Date Data Source [id number] 11/02/2019 12:00:00 AM EDT MARILIA ([facility]) Name Value Range Interpretation Code Description Data Tashia rce(s) Supporting Document(s) ID Date Data Source [id number] 11/02/2019 12:00:00 AM EDT MARILIA ([facility]) Name Value Range Interpretation Code Description Data Tashia rce(s) Supporting Document(s) ID Date Data Source [id number] 11/02/2019 12:00:00 AM EDT MARILIA ([facility]) Name Value Range Interpretation Code Description Data Tashia rce(s) Supporting Document(s) ID Date Data Source [id number] 11/02/2019 12:00:00 AM EDT [facility] Name Value Range Interpretation Code Description Data Tashia rce(s) Supporting Document(s) SARS-CoV-2 [facility] This lab was ordered by [facility] [email or web address] [facility]-COVID19 and reported by [employer]. ID Date Data Source [id number] 11/02/2019 12:00:00 AM EDT MARILIA ([facility]) Name Value Range Interpretation Code Description Data Tashia rce(s) Supporting Document(s) ID Date Data Source [id number] 11/02/2019 12:00:00 AM EDT MARILIA ([facility]) Name Value Range Interpretation Code Description Data Tashia rce(s) Supporting Document(s) ID Date Data Source [id number] 10/11/2019 11:25:00 AM EDT MEDENT ([facility]) Name Value Range Interpretation Code Description Data Tashia rce(s) Supporting Document(s) Bacteria identified in Urine by Culture Laboratory test result MEDENT ([facility] [place]) <content>Run: 10/13/19 0828 INTERFACED REPORT</content>
<content> ntent>Name: Cassie Jiang Age/Sex: 64/F Location: [facility]</content>
<content>Acct: [id number] Unit: [id number] Status: REG REF Room/Bed:</content>
<content>Re10/11/19 Disch: Junior Dr: Amira Garg</content>
<content> </content>
<content></content>
<content>Specimen #: [id number] Ordered : 10/11/1908/24/1720</content>
<content>Collected : 10/11/1908/24/1124 By: [...] REPORT </content>
<content></content> ID Date Data Source [id number] 10/13/2019 08:27:00 AM [facility]: 10/13/19 0828 INTERFACED REPORT Name: Cassie Jiang Age/Sex: 64/F Location: [facility] Acct: [id number] Unit: [id number] Status: REG REF Room/Bed: Re10/11/19 Disch: Junior Dr: Amira Garg Specimen #: [id number] Ordered : 10/11/1908/24/1720 Collected : 10/11/1908/24/1124 By: [...] rce(s) Supporting Document(s) ID Date Data Source [id number] 10/11/2019 11:21:00 AM EDOanh STUBBS ([facility]) Name Value Range Interpretation Code Description Data Tashia rce(s) Supporting Document(s) Ua Nitrite Laboratory test result ME DENT ([facility]) Protein [Presence] in Urine by Test strip 30 mg/dL MEDENT ([facility]) Glucose [Presence] in Urine Laboratory test result MEDENT ([facility]) Blood [Presence] in Urine by Visual Laboratory test result MEDENT ([facility] [place]) Color of Urine Laboratory test result MEDENT ([facility] [place]) Ua Leuko Laboratory test result ME DENT ([facility]) Clarity of Urine Laboratory test result MEDENT ([facility]) Ua Specific [place] Laboratory test result 1.003-1.030 MEDENT ([facility]) Ketones [Presence] in Urine by Test strip 15 mg/dL MEDENT ([facility]) pH of Urine by Test strip 5.0 5.0-7.5 MEDENT ([facility]) Bilirubin.total [Presence] in Urine by Test strip Laboratory test res ult MEDENT ([facility]) Urobilinogen [Mass/volume] in Urine by Test strip 0.2 E.U./dL 0.0-1.0 MEDENT ([facility]) ID Date Data Source [id number] 09/06/2019 09:15:00 AM [facility]: 09/06/19 0915 INTERFACED REPORT Name: Cassie Jiang Age/Sex: 64/F Location: [facility] Acct: [id number] Unit: [id number] Status: REG REF Room/Bed: Re09/04/19 Disch: Att Dr: Monica Bal MD Specimen #: [id number] Ordered : 09/04/19 Collected : 09/04/19 By: [...] Value Range Interpretation Code Description Data Tashia [facility](s) Supporting Document(s) ID Date Data Source [id number] 09/04/2019 12:10:00 PM EDT EVELYNE ([facility] [place]) Name Value Range Interpretation Code Description Data Tashia e(s) Supporting Document(s) Bacteria identified in Urine by Culture Laboratory test result EVELYNE ([facility]) <content> --------</content>
<content>Run: 09/06/19 0915 INTERFACED REPORT</content>
<content> </content>
<content>Name: Cassie Jiang Age/Sex: 64/F Location: [facility]</content>
<content>Acct: [id number] Unit: [id number] Status: REG REF Room/Bed:</content>
<content>Re09/04/19 Disch: Att Dr: Monica Bal MD</content>
<content> </content>
<content></content>
<content>Specimen #: [id number] Ordered : 09/04/19</content>
<content>Collected : 09/04/19 By: [...] REPORT </content>
<content></content> ID Date Data Source [id number] 09/04/2019 12:09:00 PM EDT MEDENT ([facility]) Name Value Range Interpretation Code Description Data Tashia rce(s) Supporting Document(s) Protein [Presence] in Urine by Test strip Laboratory test result MEDENT ([facility] [place]) Ua Nitrite Laboratory test result ME DENT ([facility]) Glucose [Presence] in Urine Laboratory test result MEDENT ([facility]) Ketones [Presence] in Urine by Test strip Laboratory test result MEDENT ([facility]) Ua Leuko Laboratory test result ME DENT ([facility]) Blood [Presence] in Urine by Visual Laboratory test result MEDENT ([facility]) Color of Urine Laboratory test result MEDENT ([facility]) Ua Specific [place] Laboratory test result 1.003-1.030 MEDENT ([facility]) Clarity of Urine Laboratory test result MEDENT ([facility] [place]) pH of Urine by Test strip 5.0 5.0-7.5 MEDENT ([facility]) Bilirubin.total [Presence] in Urine by Test strip Laboratory test res ult MEDENT ([facility]) Urobilinogen [Mass/volume] in Urine by Test strip 0.2 E.U./dL 0.0-1.0 MEDENT ([facility]) ID Date Data Source [id number] 09/04/2019 12:03:00 PM EDT MEDENT ([facility]) Name Value Range Interpretation Code Description Data Tashia rce(s) Supporting Document(s) Protein [Presence] in Urine by Test strip Laboratory test result MEDENT ([facility]) Glucose [Presence] in Urine Laboratory test result MEDENT ([facility]) Blood [Presence] in Urine by Visual Laboratory test result MEDENT ([facility]) Ua Leuko Laboratory test result ME DENT ([facility] [place]) Ua Nitrite Laboratory test result ME DENT ([facility] [place]) Color of Urine Laboratory test result MEDENT ([facility]) Clarity of Urine Laboratory test result MEDENT ([facility] [place]) Ketones [Presence] in Urine by Test strip Laboratory test result MEDENT ([facility] [place]) Ua Specific [place] Laboratory test result 1.003-1.030 MEDENT ([facility] [place]) Urobilinogen [Mass/volume] in Urine by Test strip 0.2 E.U./dL 0.0-1.0 MEDENT ([facility]) pH of Urine by Test strip 5.0 5.0-7.5 MEDENT ([facility]) Bilirubin.total [Presence] in Urine by Test strip Laboratory test res ult MEDENT ([facility] [place]) ID Date Data Source [id number] 06/21/2019 10:46:00 AM EDT [facility] [address] [place] [address] [phone] NAME SEX PT STATUS ACCOUNT NUMBER CASSIE JIANG REG REF [id number] ORDERING PHYSICIAN LOCATION MEDICAL RECORD NO. Robbi PA-C [facility] [id number] ATTENDING PHYSICIAN DATE OF DATE OF EXAM/TIME [...] Trans Dt/Tm: Trans by: DT Prt Dt/Tm: [phone]: Total DLP = 0.00 mGy-cm Fluoroscopy Time (in secs): Name Value Range Interpretation Code Description Data Tashia rce(s) Supporting Document(s) ID Date Data Source [id number] 06/21/2019 10:44:00 AM EDT [facility] [address] [place] [id number] [phone] NAME SEX PT STATUS ACCOUNT NUMBER CASSIE JIANG REG REF [id number] ORDERING PHYSICIAN LOCATION MEDICAL RECORD NO. Robbi PA-C [facility] [id number] ATTENDING PHYSICIAN DATE OF DATE OF EXAM/TIME [...] Trans Dt/Tm: Trans by: DT Prt Dt/Tm: [phone]: Total DLP = 0.00 mGy-cm Fluoroscopy Time (in secs): Name Value Range Interpretation Code Description Data Tashia rce(s) Supporting Document(s) ID Date Data Source [id number] 06/21/2019 10:43:00 AM EDT [facility] Patient Name: CASSIE JIANG : 1955 Sex: F Pt Unit #: [id number] Location:[facility] Provider: Visit Date/Time: 06/21/19 Primary Insurance: [facility] Secondary Insurance: Self Pay Intake Vital Signs [...] Screening Screening Have you traveled outside of [facility] or [facility] in the last 14 days.: No Has [...] obese Orientation: alert, awake and oriented x3 HENAL Head: normal to inspection, normocephalic and atraumatic [...] Unilateral primary osteoarthritis, right knee SNOMED Code(s): [id number] Category: Medical Plan - Cseario Gao MD: Patient is status post retrograde [...] rce(s) Supporting Document(s) ID Date Data Source [id number] 05/11/2019 04:51:00 PM [facility] [address] [place] [address] [phone] NAME SEX PT STATUS ACCOUNT NUMBER CASSIE JIANG REG REF [id number] ORDERING PHYSICIAN LOCATION MEDICAL RECORD NO. Robbi ANTELMO-Keyanna Chang [facility] [id number] ATTENDING PHYSICIAN DATE OF DATE OF EXAM/TIME [...] Trans Dt/Tm: Trans by: DT Prt Dt/Tm: [phone]: Total DLP = 0.00 mGy-cm Fluoroscopy Time (in secs): Name Value Range Interpretation Code Description Data Tashia rce(s) Supporting Document(s) ID Date Data Source [id number] 05/11/2019 03:52:00 PM [facility] Patient Name: CASSIE JIANG : 1955 Sex: F Pt Unit #: [id number] Location:[facility] Provider: Visit Date/Time: 05/11/19 Primary Insurance: [facility] Secondary Insurance: Self Pay Intake Vital Signs [...] today/Pretest education received and acknowledged [facility] Medical History Arthritis (Acute) Asthma (Acute) Ataxia [...] to begin outpatient formal physical therapy in [place]. Recommend additional follow-up in approximately 6 weeks [...] rce(s) Supporting Document(s) ID Date Data Source [id number] 04/03/2019 05:02:00 PM [facility] [address] [place] [id number] [phone] NAME SEX PT STATUS ACCOUNT NUMBER CASSIE JIANG [facility] [id number] ORDERING PHYSICIAN LOCATION MEDICAL RECORD NO. Cesario Gao MD [place] [id number] ATTENDING PHYSICIAN DATE OF DATE OF EXAM/TIME [...] Trans Dt/Tm: Trans by: DT Prt Dt/Tm: [phone]: Total DLP = 0.00 mGy-cm Fluoroscopy Time (in secs): Name Value Range Interpretation Code Description Data Tashia rce(s) Supporting Document(s) ID Date Data Source [id number] 04/03/2019 04:47:00 PM [facility] Name: CASSIE JIANG : 1955 Age: 63 MR#: [id number] Admit Date: 03/29/19 Provider: Cesario Gao MD [...] rce(s) Supporting Document(s) ID Date Data Source [id number] 03/29/2019 02:41:00 PM [facility] Patient Name: CASSIE JIANG : 1955 Sex: F Pt Unit #: [id number] Location[facility] Provider: Visit Date/Time: 03/29/19 Primary Insurance: [facility] Secondary Insurance: Self Pay Intake Vital Signs [...] today/Pretest education received and acknowledged [facility] Medical History (Updated 03/15/19 @ 07:57 by [...] initial encounter for closed fracture SNOMED Code(s): [id number] Category: Medical Plan - Cesario Gao MD: [...] rce(s) Supporting Document(s) ID Date Data Source [id number] 03/29/2019 02:40:00 PM [facility] [address] [place] [address] [phone] NAME SEX PT STATUS ACCOUNT NUMBER CASSIE JIANG REG REF [id number] ORDERING PHYSICIAN LOCATION MEDICAL RECORD NO. Robbi [place] [facility] [id number] ATTENDING PHYSICIAN DATE OF DATE OF EXAM/TIME [...] Trans Dt/Tm: Trans by: DT Prt Dt/Tm: [phone]: Total DLP = 0.00 mGy-cm Fluoroscopy Time (in secs): Name Value Range Interpretation Code Description Data Tashia rce(s) Supporting Document(s) ID Date Data Source Urinalysis, no micro 03/23/2019 12:00:00 AM EST eCW1 ([facility]) Name Value Range Interpretation Code Description Data Tashia rce(s) Supporting Document(s) 1.010 1.002 - 1.035 Spec gravity eCW1 ([facility]) 6 5.0 - 9.0 pH eCW1 ([facility]) POSITIVE Negative - Nitrate eCW1 ([facility]) NORMAL Negative - mg/dl Glucose eCW1 ([facility]) ++ Negative - Leukocyte eCW1 ([facility]) +++ Negative - mg/dl Protein eCW1 ([facility]) NEGATIVE Normal - mg/dl Urobili eCW1 ([facility]) NEGATIVE Negative - Bilirubin eCW1 ([facility]) NEGATIVE Negative - Blood eCW1 ([facility]) NEGATIVE Negative - mg/dl Ketones eCW1 ([facility]) YES Internal QC Acceptable (Y/N) e CW1 ([facility]) ID Date Data Source [id number] 03/14/2019 03:44:00 PM [facility] [address] [place] [address] [phone] NAME SEX PT STATUS ACCOUNT NUMBER CASSIE JIANG REG REF [id number] ORDERING PHYSICIAN LOCATION MEDICAL RECORD NO. Robbi Chang [facility] [id number] ATTENDING PHYSICIAN DATE OF DATE OF EXAM/TIME [...] Alcides Waldrop MD; Kimani Ann M.D. Techn: [facility] Trans Dt/Tm: Trans by: DT Prt Dt/Tm: [id number]: Total DLP = 0.00 mGy-cm Fluoroscopy Time (in secs): Name Value Range Interpretation Code Description Data Tashia rce(s) Supporting Document(s) ID Date Data Source [id number] 03/14/2019 02:48:00 PM [facility] Patient Name: CASSIE JIANG : 1955 Sex: F Pt Unit #: [id number] Location:AMB.ORTHO Provider: Visit Date/Time: 03/14/19 Primary Insurance: [facility] Secondary Insurance: Self Pay Intake Vital Signs [...] today/Pretest education received and acknowledged [facility] Medical History (Updated 03/15/19 @ 07:57 by [...] initial encounter for closed fracture SNOMED Code(s): 653630520 Category: Medical Plan - Robbi Chang PA-C: [...] Patient's pain has surprisingly been controlled with [id number] Tylenol only. She remains on Lovenox for [...] rce(s) Supporting Document(s) ID Date Data Source [id number] 03/06/2019 07:52:00 AM [facility] Name: CASSIE JIANG : 1955 Age: 63 MR#: [id number] Admit Date: 02/19/19 Provider: Mikey Arroyo Room [...] 31.7 L, Lymph % (Auto) 54.5 H, [place] % (Auto) 7.2, Eos % (Auto) 5.8, [...] hypothyroidism, hyperlipidemia and fibromyalgia, who presented to [facility] ED via EMS on 02/19/2019, after a [...] otherwise labs unremarkable. Patient was admitted to [facility] for further monitoring and treatment. TSH [...] PO Q4H RF: 0 Follow Up Visit/Referrals: [facility] [Outside] - 03/12/19 Discharge Problem: Fracture [...] by Ellie Jefferson MD> 03/07/19 0949 [facility] T[facility] 03/06/191609 CC: Name Value Range Interpretation Code Description Data Tashia rce(s) Supporting Document(s) ID Date Data Source [id number] 03/06/2019 07:15:00 AM EST [facility] Name Value Range Interpretation Code Description Data [facility] rce(s) Supporting Document(s) Leukocytes [#/volume] in Blood by Automated count 6.4 10*3/uL 4.45-10 .71 N [facility] Erythrocytes [#/volume] in Blood by Automated count 2.90 10*6/uL 4.20-5.40 Below low normal [facility] Hemoglobin [Moles/volume] in Blood 8.9 g/dL 10.7-15.4 Below low no rmal [facility] Hematocrit [Volume Fraction] of Blood by Automated count 29.0 % 37-47 Below low normal [facility] Erythrocyte mean corpuscular volume [Ent itic volume] in Cord blood by Automated count 100.0 fL 80-96 Above high normal [facility] Erythrocyte mean corpuscular hemoglobin [Entitic mass] by Automated count 30.7 pg 27-31 N [facility] Erythrocyte mean corpuscular hemoglobin concentration [Mass/volume] in Cord blood 30.7 g/dL 33-37 Below low normal [facility] Erythrocyte distribution width [Entitic volume] by Automated cou nt 18 % 11-15 Above high normal [facility] Platelets [#/volume] in Blood by Automated count 462 10*3/uL 130-472 N [facility] Platelet mean volume [Entitic volume] in Blood 9.5 fL 9.1-13.1 N [facility] Neutrophils/100 leukocytes in Blood by Automated count 31.7 % 41-77 Below low normal [facility] Neutrophils [#/volume] in Blood by Automated count 2.0 U 1.7-7.6 N [facility] Lymphocytes/100 leukocytes in Blood by Automated count 54.5 % 14-46 Above high normal [facility] Lymphocytes [#/volume] in Blood by Automated count 3.5 U 0.6-4.6 N [facility] Monocytes/100 leukocytes in Blood by Automated count 7.2 % 4-12 N [facility] Monocytes [#/volume] in Blood by Automated count 0.5 U 0.2-1.2 N [facility] Eosinophils/100 leukocytes in Blood by Automated count 5.8 % 0-7 N [facility] Eosinophils [#/volume] in Blood by Automated count 0.4 U 0.0-0.5 N [facility] Basophils/100 leukocytes in Blood by Automated count 0.6 % 0.4-1 .3 N [facility] Basophils [#/volume] in Blood by Automated count 0.0 U 0.0-0.2 N [facility] NUCLEATED RED BLOOD CELL 0 % [facility] NUCLEATED RED BLOOD CELL# 0 U [facility] Immature granulocytes [Presence] in Blood by Automated count 0-2 N [facility] Immature granulocytes [#/volume] in Blood by Automated count 0.0 U 0-0.1 N [facility] Manual Differential panel - Blood NO [facility] ID Date Data Source [id number] 03/05/2019 09:19:00 AM EST [facility] Name: CASSIE JIANG : 1955 Age: 63 MR#: [id number] Admit Date: 02/19/19 Provider: Mikey Arroyo Room [...] Admit to Inpatient, Acute [STATUS] Routine Location: [facility] Primary diagnosis: s/p femur fracture Isolation: [...] initial encounter for closed fracture SNOMED Code(s): 285195158 Permanent Plan: Continue with OT/ PT. continue with pain management. Continue to monitor surgical sites for signs symptoms of infection. (2) GERD (gastroesophageal reflux disease): Code(s): K21.9 - Gastro-esophageal reflux disease without esophagitis SNOMED Code(s): 202845262 Per manent Plan: Continue with home medication pantoprazole (3) Chronic constipation: Code(s): K59.09 - Other constipation SNOMED Code(s): 879547496 Permanent Plan: Continue to monitor, bowel regimen as ordered (4) Hypothyroid: Code(s): E03.9 - Hypothyroidism, unspecified SNOMED Code(s): 70782366 Permanent Plan: Continue with levothyroxine (5) Type 2 diabetes mellitus: Code(s): E11.9 - Type 2 diabetes mellitus without complications SNOMED Code(s): 11035979 Permanent Plan: Accu-Cheks AC at bedtime with sliding scale coverage as well as Januvia. Add Metformin 750 mg BID was on 850 mg BID at home. Resume glimepiride. Consistant carb diet. (6) Hyperlipidemia: Code(s): E78.5 - Hyperlipidemia, unspecified SNOMED Code(s): 87216457 Permanent Plan: Continue home medication pravastatin (7) Fibromyalgia: Code(s): M79.7 - Fibromyalgia SNOMED Code(s): 789505863 Permanent Plan: Gabapentin, Cymbalta andClonazepam (8) Depression: Code(s): F32.9 - Major depressive disorder, single episode, unspecified SNOMED Code(s): 63265064 Permanent Plan: Cymbalta, Lexapro, Clonazepam. Resume home nortriptyline (9) Chronic pain: Code(s): G89.29 - Other chronic pain SNOMED Code(s): 39807225 Permanent Plan: Baclofen and Flexeril for back spasms, Gabapentin for neuropathy, oxycodone 1 to 2 tablets every 4 hours for acute, Voltaren topical and home dose of prednisone 10 mg daily (10) Insomnia: Code(s): G47.00 - Insomnia, unspecified SNOMED Code(s): 307477269 Permanent Plan: Home dose Rozerem (11) Bilateral lower extremity edema: Code(s): R60.0 - Localized edema SNOMED Code(s): 489371169 Permanent Plan: Patient was on low dose [...] rce(s) Supporting Document(s) ID Date Data Source [id number] 03/05/2019 07:08:00 AM [facility] Name Value Range Interpretation Code Description Data Tashia rce(s) Supporting Document(s) Urea nitrogen [Mass/volume] in Serum or Plasma 10 mg/dL 9-23 N [facility] Sodium [Moles/volume] in Serum or Plasma 144 mmol/L 132-146 N [facility] Potassium [Moles/volume] in Serum or Plasma 4.0 mmol/L 3.5-5.5 [facility] Chloride [Moles/volume] in Serum or Plasma 111 mmol/L 99-109 Above high normal [facility] Carbon dioxide, total [Moles/volume] in Serum or Plasma 26 mmol/L 20 -31 [facility] Anion gap in Serum or Plasma 11 mmol/L 8-[address] [facility] Glucose [Mass/volume] in Serum or Plasma 47 mg/dL 74-106 Below low normal [facility] @Review & document.Repeated by: Sury Davenport 03/05/19 0708.Result Confirmation: 47 mg/dL Creatinine 0.5 mg/dL 0.5-1.1 [facility] Glomerular filtration rate/1.73 sq M.pre dicted [Volume Rate/Area] in Serum or Plasma Greater Than 60 ABOVE 60 [facility] Calcium [Mass/volume] in Serum or Plasma 8.6 mg/dL 8.5-10.1 [facility] ID Date Data Source [id number] 03/04/2019 11:52:00 AM [facility] Name: CASSIE JIANG : 1955 Age: 63 MR#: [id number] Admit Date: 02/19/19 Provider: Mariah Shepherd NP [...] Admit to Inpatient, Acute [STATUS] Routine Location: [facility] Primary diagnosis: s/p femur fracture Isolation: [...] initial encounter for closed fracture SNOMED Code(s): 876384445 Permanent Plan: Continue with OT/ PT. continue with pain management. Continue to monitor surgical sites for signs symptoms of infection. (2) GERD (gastroesophageal reflux disease): Code(s): K21.9 - Gastro-esophageal reflux disease without esophagitis SNOMED Code(s): 723785677 Permanent Plan: Continue with home medication pantoprazole (3) Chronic constipation: Code(s): K59.09 - Other constipation SNOMED Code(s): 998358864 Permanent Plan: Continue to monitor, bowel regimen as ordered (4) Hypothyroid: Code(s): E03.9 - Hypothyroidism, unspecified SNOMED Code(s): 82404505 Permanent Plan: Continue with levothyroxine (5) Type 2 diabetes mellitus: Code(s): E11.9 - Type 2 diabetes mellitus without complications SNOMED Code(s): 52018015 Permanent Plan: Accu-Cheks AC at bedtime with sliding scale coverage as well as Januvia. Add Metformin 750 mg BID was on 850 mg BID at home. Resume glimepiride. Consistant carb diet. ( 6) Hyperlipidemia: Code(s): E78.5 - Hyperlipidemia, unspecified SNOMED Code(s): 68231749 Permanent Plan: Continue home medication pravastatin (7) Fibromyalgia: Code(s): M79.7 - Fibromyalgia SNOMED Code(s): 788374428 Permanent Plan: Gabapentin, Cymbalta andClonazepam (8) Depression: Code(s): F32.9 - Major depressive disorder, single episode, unspecified SNOMED Code(s): 09298502 Permanent Plan: Cymbalta, Lexapro, Clonazepam. Resume home nortriptyline (9) Chronic pain: Code(s): G89.29 - Other chronic pain SNOMED Co de(s): 04071312 Permanent Plan: Baclofen and Flexeril for back spasms, Gabapentin for neuropathy, oxycodone 1 to 2 tablets every 4 hours for acute, Voltaren topical and home dose of prednisone 10 mg daily (10) Insomnia: Code(s): G47.00 - Insomnia, unspecified SNOMED Code(s): 571852399 Permanent Plan: Home dose Rozerem (11) Bilateral lower extremity edema: Code(s): R60.0 - Localized edema SNOMED Code(s): 440405207 Permanent Plan: Patient was on low dose [...] Shepherd NP> Mariah Shepherd NP 03/04/19 1208 Mraiah Shepherd NP SIGNATURE DA Report Cosigners: <<Signature on File>> Ellie Jefferson MD 03/06/19 1221 <Electronically signed by Ellie Jefferson MD> Ellie Jefferson MD 03/06/19 1221 D: ANJALI 03/04/19 1152 T: ANJALI 03/04/19 1152 CC: Name Value Range Interpretation Code Description Data Tashia rce(s) Supporting Document(s) ID Date Data Source [id number] 03/03/2019 02:24:00 PM [facility] Name: CASSIE JIANG : 1955 Age: 63 MR#: [id number] Admit Date: 02/19/19 Provider: Mariah Shepherd NP [...] Admit to Inpatient, Acute [STATUS] Routine Location: [facility] Primary diagnosis: s/p femur fracture Isolation: [...] % (Auto) 43.8, Lymph % (Auto) 43.1, [place] % (Auto) 6.3, Eos % (Auto) 6.0, [...] brisk and other (Decreased ROM right knee, [place] right groin and right knee INDRA without [...] initial encounter for closed fracture SNOMED Code(s): 473648492 Permanent Plan: Continue with OT/ PT. continue with pain management and trending labs for anemia postop. Continue to monitor surgical sites for signs symptoms of infection. (2) GERD (gastroesophageal reflux disease): Code(s): K21.9 - Gastro-esophageal reflux disease without esophagitis SNOMED Code(s): 844157538 Permanent Plan: Continue with home medication pantoprazole (3) Chronic constipation: Code(s): K59.09 - Other constipation SNOMED Code(s): 191810364 Permanent Plan: Continue to monitor, bowel regimen as ordered (4) Hypothyroid: Code(s): E03.9 - Hypothyroidism, unspecified SNOMED Code(s): 91071948 Permanent Plan: Continue with levothyroxine (5) Type 2 diabetes mellitus: Code(s): E11.9 - Type 2 diabetes mellitus without complications SNOMED Code(s): 49729432 Permanent Plan: Accu-Cheks AC at bedtime with sliding scale coverage as well as Januvia. Add Metformin 750 mg BID was on 850 mg BID at home. She was also on alogliptin at home which is nonformulary here. Consistant carb diet. (6) Hyperlipidemia: Code(s): E78.5 - Hyperlipidemia, unspecified SNOMED Code(s): 41247712 Permanent Plan: Continue home medication pravastatin (7) Fibromyalgia: Code(s): M79.7 - Fibromyalgia SNOMED Code(s): 165837610 Permanent Plan: Gabapentin and Cymbalta. Resume home dose of Clonazepam (8) Depression: Code(s): F32.9 - Major depressive disorder, single episode, unspecified SNOMED Code(s): 00360701 Permanent Plan: Cymbalta and Lexapro, Rozerem for insomnia. Resume Clonazepam (9) Chronic pain: Code(s): G89.29 - Other chronic pain SNOMED Code(s): 42227412 Permanent Plan: Baclofen and Flexeril for back [...] rcjaime(s) Supporting Document(s) ID Date Data Source [id number] 03/03/2019 06:49:00 AM EST [facility] Name Value Range Interpretation Code Description Data Tashia rce(s) Supporting Document(s) Leukocytes [#/volume] in Blood by Automated count 8.8 10*3/uL 4.45-10 .71 N [facility] Erythrocytes [#/volume] in Blood by Automated count 2.78 10*6/uL 4.20-5.40 Below low normal [facility] Hemoglobin [Moles/volume] in Blood 8.3 g/dL 10.7-15.4 Below low no rmal [facility] Hematocrit [Volume Fraction] of Blood by Automated count 26.8 % 37-47 Below low normal [facility] Erythrocyte mean corpuscular volume [Ent itic volume] in Cord blood by Automated count 96.4 fL 80-96 Above high normal [facility] Erythrocyte mean corpuscular hemoglobin [Entitic mass] by Automated count 29.9 pg 27-31 N [facility] Erythrocyte mean corpuscular hemoglobin concentration [Mass/volume] in Cord blood 31.0 g/dL 33-37 Below low normal [facility] Erythrocyte distribution width [Entitic volume] by Automated cou nt 17 % 11-15 Above high normal [facility] Platelets [#/volume] in Blood by Automated count 504 10*3/uL 130-472 Above high normal [facility] Platelet mean volume [Entitic volume] in Blood 9.3 fL 9.1-13.1 N [facility] Neutrophils/100 leukocytes in Blood by Automated count 43.8 % 41- 77 N [facility] Neutrophils [#/volume] in Blood by Automated count 3.9 U 1.7-7.6 N [facility] Lymphocytes/100 leukocytes in Blood by Automated count 43.1 % 14- 46 N [facility] Lymphocytes [#/volume] in Blood by Automated count 3.8 U 0.6-4.6 N [facility] Monocytes/100 leukocytes in Blood by Automated count 6.3 % 4-12 N [facility] Monocytes [#/volume] in Blood by Automated count 0.6 U 0.2-1.2 N [facility] Eosinophils/100 leukocytes in Blood by Automated count 6.0 % 0-7 N [facility] Eosinophils [#/volume] in Blood by Automated count 0.5 U 0.0-0.5 N [facility] Basophils/100 leukocytes in Blood by Automated count 0.5 % 0.4-1 .3 N [facility] Basophils [#/volume] in Blood by Automated count 0.0 U 0.0-0.2 N [facility] NUCLEATED RED BLOOD CELL 0 % [facility] NUCLEATED RED BLOOD CELL# 0 U [facility] Immature granulocytes [Presence] in Blood by Automated count 0-2 N [facility] Immature granulocytes [#/volume] in Blood by Automated count 0.0 U 0-0.1 N [facility] Manual Differential panel - Blood NO [facility] ID Date Data Source [id number] 03/03/2019 07:26:00 AM EST [facility] Name Value Range Interpretation Code Description Data Tashia rce(s) Supporting Document(s) Urea nitrogen [Mass/volume] in Serum or Plasma 12 mg/dL 9-23 N [facility] Sodium [Moles/volume] in Serum or Plasma 143 mmol/L 132-146 N [facility] Potassium [Moles/volume] in Serum or Plasma 4.1 mmol/L 3.5-5.5 [facility] Chloride [Moles/volume] in Serum or Plasma 110 mmol/L 99-109 Above high normal [facility] Carbon dioxide, total [Moles/volume] in Serum or Plasma 27 mmol/L 20 -31 N [facility] Anion gap in Serum or Plasma 10 mmol/L 8-[address] [facility] Glucose [Mass/volume] in Serum or Plasma 104 mg/dL 74-106 N [facility] Creatinine 0.6 mg/dL 0.5-1.1 [facility] Glomerular filtration rate/1.73 sq M.pre dicted [Volume Rate/Area] in Serum or Plasma Greater Than 60 ABOVE 60 [facility] Alanine aminotransferase [Enzymatic acti vity/volume] in Serum or Plasma by With P-5'-P 18 U/L 10-49 N [facility] ital Aspartate aminotransferase [Enzymatic ac tivity/volume] in Serum or Plasma by With P-5'-P 12 U/L 0-33 N [facility] pital Alkaline phosphatase [Enzymatic activity/volume] in Serum or Plasma 117 U/L 45-129 N [facility] Calcium [Mass/volume] in Serum or Plasma 8.6 mg/dL 8.5-10.1 N [facility] Bilirubin.total [Mass/volume] in Serum or Plasma 0.6 mg/dL 0.3-1.2 [facility] Albumin [Mass/volume] in Serum or Plasma by Bromocresol purple (BCP) dye binding method 2.7 g/dL 3.2-4.8 Below low normal [facility] Protein [Mass/volume] in Serum or Plasma 5.8 g/dL 5.7-8.2 [facility] ID Date Data Source [id number] 03/02/2019 04:15:00 PM [facility] Name: CASSIE JIANG : 1955 Age: 63 MR#: [id number] Admit Date: 02/19/19 Provider: Celena Matute Room [...] Admit to Inpatient, Acute [STATUS] Routine Location: [facility] Primary diagnosis: s/p femur fracture Isolation: [...] (Auto) 40.0 L, Lymph % (Auto) 43.7, [place] % (Auto) 8.7, Eos % (Auto) 6.8, [...] initial encounter for closed fracture SNOMED Code(s): 631207955 Permanent Plan: Continue with OT/ PT. continue with pain management and trending labs for anemia postop. C ontinue to monitor surgical sites for signs symptoms of infection. explore short-term rehabilitation options (2) GERD (gastroesophageal reflux disease): Code(s): K21.9 - Gastro-esophageal reflux disease without esophagitis SNOMED Code(s): 820619385 Permanent Plan: Continue with home medication pantoprazole (3) Chronic constipation: Code(s): K59.09 - Other constipation SNOMED Code(s): 303637547 Permanent Plan: Continue to monitor, bowel regime as ordered (4) Hypothyroid: Code(s): E03.9 - Hypothyroidism, unspecified SNOMED Code(s): 98692726 Permanent Plan: Continue with levothyroxine (5) Type 2 diabetes mellitus: Code(s): E11.9 - Type 2 diabetes mellitus without complications SNOMED Code(s): 47256691 Permanent Plan: Accu-Cheks AC at bedtime with sliding scale coverage as well as Januvia. Consistant carb diet. (6) Hyperlipidemia: Code(s): E78.5 - Hyperlipidemia, unspecified SNOMED Code(s): 01614320 Permanent Plan: Continue home medication pravastatin (7) Fibromyalgia: Code(s): M79.7 - Fibromyalgia SNOMED Code(s): 965415481 Permanent Plan: Gabapentin and Cymbalta (8) Depression: Code(s): F32.9 - Major depressive disorder, single episode, unspecified SNOMED Code(s): 53686949 Permanent Plan: Cymbalta and Lexapro, Rozerem for insomnia (9) Chronic pain: Code(s): G89.29 - Other chronic pain SNOMED Code(s): 11264675 Permanent Plan: Baclofen and Flexeril for back [...] rce(s) Supporting Document(s) ID Date Data Source [id number] 03/02/2019 06:24:00 AM EST [facility] Name Value Range Interpretation Code Description Data Tashia rce(s) Supporting Document(s) Leukocytes [#/volume] in Blood by Automated count 7.4 10*3/uL 4.45-10 .71 N [facility] Erythrocytes [#/volume] in Blood by Automated count 2.72 10*6/uL 4.20-5.40 Below low normal [facility] Hemoglobin [Moles/volume] in Blood 8.1 g/dL 10.7-15.4 Below low no rmal [facility] Hematocrit [Volume Fraction] of Blood by Automated count 27.5 % 37-47 Below low normal [facility] Erythrocyte mean corpuscular volume [Ent itic volume] in Cord blood by Automated count 101.1 fL 80-96 [facility] ital Repeated by: Sury Davenport 03/02/19 062 3.Result Confirmation: 100.7 fl Erythrocyte mean corpuscular hemoglobin [Entitic mass] by Automated count 29.8 pg 27-31 [facility] Erythrocyte mean corpuscular hemoglobin concentration [Mass/volume] in Cord blood 29.5 g/dL 33-37 Below low normal [facility] Erythrocyte distribution width [Entitic volume] by Automated cou nt 17 % 11-15 Above high normal [facility] Platelets [#/volume] in Blood by Automated count 432 10*3/uL 130-472 [facility] Platelet mean volume [Entitic volume] in Blood 9.5 fL 9.1-13.1 [facility] Neutrophils/100 leukocytes in Blood by Automated count 40.0 % 41-77 Below low normal [facility] Neutrophils [#/volume] in Blood by Automated count 3.0 U 1.7-7.6 N [facility] Lymphocytes/100 leukocytes in Blood by Automated count 43.7 % 14- 46 N [facility] Lymphocytes [#/volume] in Blood by Automated count 3.2 U 0.6-4.6 N [facility] Monocytes/100 leukocytes in Blood by Automated count 8.7 % 4-12 N [facility] Monocytes [#/volume] in Blood by Automated count 0.6 U 0.2-1.2 N [facility] Eosinophils/100 leukocytes in Blood by Automated count 6.8 % 0-7 N [facility] Eosinophils [#/volume] in Blood by Automated count 0.5 U 0.0-0.5 N [facility] Basophils/100 leukocytes in Blood by Automated count 0.5 % 0.4-1 .3 N [facility] Basophils [#/volume] in Blood by Automated count 0.0 U 0.0-0.2 N [facility] NUCLEATED RED BLOOD CELL 0 % [facility] NUCLEATED RED BLOOD CELL# 0 U [facility] Immature granulocytes [Presence] in Blood by Automated count 0-2 N [facility] Immature granulocytes [#/volume] in Blood by Automated count 0.0 U 0-0.1 N [facility] Manual Differential panel - Blood NO [facility] ID Date Data Source [id number] 03/02/2019 06:45:00 AM EST [facility] Name Value Range Interpretation Code Description Data Tashia rce(s) Supporting Document(s) Urea nitrogen [Mass/volume] in Serum or Plasma 12 mg/dL 9-23 N [facility] Sodium [Moles/volume] in Serum or Plasma 143 mmol/L 132-146 N [facility] Potassium [Moles/volume] in Serum or Plasma 4.1 mmol/L 3.5-5.5 N [facility] Chloride [Moles/volume] in Serum or Plasma 110 mmol/L 99-109 Above high normal [facility] Carbon dioxide, total [Moles/volume] in Serum or Plasma 27 mmol/L 20 -31 N [facility] Anion gap in Serum or Plasma 10 mmol/L 8-[address] [facility] Glucose [Mass/volume] in Serum or Plasma 105 mg/dL 74-106 N [facility] Creatinine 0.5 mg/dL 0.5-1.1 [facility] Glomerular filtration rate/1.73 sq M.pre dicted [Volume Rate/Area] in Serum or Plasma Greater Than 60 ABOVE 60 [facility] Alanine aminotransferase [Enzymatic acti vity/volume] in Serum or Plasma by With P-5'-P 18 U/L 10-49 N [facility] ital Aspartate aminotransferase [Enzymatic ac tivity/volume] in Serum or Plasma by With P-5'-P 16 U/L 0-33 N [facility] pital Alkaline phosphatase [Enzymatic activity/volume] in Serum or Plasma 98 U/L 45-129 [facility] Calcium [Mass/volume] in Serum or Plasma 8.5 mg/dL 8.5-10.1 [facility] Bilirubin.total [Mass/volume] in Serum or Plasma 0.7 mg/dL 0.3-1.2 [facility] Albumin [Mass/volume] in Serum or Plasma by Bromocresol purple (BCP) dye binding method 2.6 g/dL 3.2-4.8 Below low normal [facility] Protein [Mass/volume] in Serum or Plasma 5.2 g/dL 5.7-8.2 Below low normal [facility] ID Date Data Source [id number] 03/02/2019 06:45:00 AM [facility] Name Value Range Interpretation Code Description Data Tashia rce(s) Supporting Document(s) Phosphate [Mass/volume] in Serum or Plasma 4.4 mg/dL 2.4-5.1 [facility] ID Date Data Source [id number] 03/02/2019 06:45:00 AM [facility] Name Value Range Interpretation Code Description Data Tashia rce(s) Supporting Document(s) Magnesium [Mass/volume] in Serum or Plasma 2.2 mg/dL 1.3-2.7 [facility] ID Date Data Source [id number] 03/01/2019 11:23:00 AM [facility] Name: CASSIE JIANG : 1955 Age: 63 MR#: [id number] Admit Date: 02/19/19 Provider: Celena Matute Room #: 293 Consulting Provider: Cesario Gao MD Dictation Date: 02/05 08/23 ProgressNote Subjective-ROS Date of service Date of service:: 03/01/19 Review of Systems ROS (Free Text/Narrative):: The patient is seen and examined. Chart is reviewed. She reported to me a complaint against some of the weaver apprentice nursing as regard to the way one of them spoke to her. Itook it to the nurse manager union and she worked on the complaint. The patient had questions about her pain meds. which was clarified by me and Dr. Goldman as regard to her needs and the risks with increasing frequency or doses of pain medications. All her questions were answered. The patient toldme her [facility] for re[facility] is [facility] then [facility]. She needs short termrehab. The patient [...] Admit to Inpatient, Acute [STATUS] Routine Location: [facility] Primary diagnosis: s/p femur fracture Isolation: [...] 32.4 L, Lymph % (Auto) 51.3 H, [place] % (Auto) 6.7, Eos % (Auto) 8.4 [...] initial encounter for closed fracture SNOMED Code(s): 903808990 Permanent Plan: Continue with OT/ PT. continue with pain management and trending labs for anemia postop. Continue to monitor surgical sites for signs symptoms of infection. explore short-term rehabilitation options (2) GERD (gastroesophageal reflux disease): Code(s): K21.9 - Gastro-esophageal reflux disease without esophagitis SNOMED Code(s): 137588500 Permanent Plan: Continue with home medication pantoprazole (3) Chronic constipation: Code(s): K59.09 - Other constipation SNOMED Code(s): 706552179 Permanent Plan: Continue to monitor, bowel regime as ordered (4) Hypothyroid: Code(s): E03.9 - Hypothyroidism, unspecified SNOMED Code(s): 36783860 Permanent Plan: Continue with levothyroxine (5) Type 2 diabetes mellitus: Code(s): E11.9 - Type 2 diabetes mellitus without complications SNOMED Code(s): 15980676 Permanent Plan: Accu-Cheks AC at bedtime with sliding scale coverage as well as Januvia. Consistant carb diet. (6) Hyperlipidemia: Code(s): E78.5 - Hyperlipidemia, unspecified SNOMED Code(s): 34787834 Permanent Plan: Continue home medication pravastatin (7) Fibromyalgia: Code(s): M79.7 - Fibromyalgia SNOMED Code(s): 406130540 Permanent Plan: Gabapentin and Cymbalta (8) Depression: Code(s): F32.9 - Major depressive disorder, single episode, unspecified SNOMED Code(s): 48640282 Permanent Plan: Cymbalta and Lexapro, Rozerem for insomnia (9) Chronic pain: Code(s): G89.29 - Other chronic pain SNOMED Code(s): 49927334 Permanent Plan: Baclofen and Flex eril for [...] The patient needs short term rehab. The geriatric social work professor is waiting to her from [facility] for [facility]hab admission (per the patient's first choice) otherwise she will work on admitting her to out halfway here for short term rehab (the patient's second choice) The patient's ambulation is improving and she keeps working with the PT/OT team Pain medications and doses were discussed with the patient and she agrees with the plan of care The patient's complaints about nursing staff was addressed with the nurse manager union who discussed it with the patient Continue [...] rce(s) Supporting Document(s) ID Date Data Source [id number] 03/01/2019 06:05:00 AM EST [facility] Name Value Range Interpretation Code Description Data Tashia rce(s) Supporting Document(s) Leukocytes [#/volume] in Blood by Automated count 8.3 10*3/uL 4.45-10 .71 [facility] Erythrocytes [#/volume] in Blood by Automated count 2.67 10*6/uL 4.20-5.40 Below low normal [facility] Hemoglobin [Moles/volume] in Blood 8.0 g/dL 10.7-15.4 Below low no rmal [facility] Hematocrit [Volume Fraction] of Blood by Automated count 25.6 % 37-47 Below low normal [facility] Erythrocyte mean corpuscular volume [Ent itic volume] in Cord blood by Automated count 95.9 fL 80-96 N [facility] Erythrocyte mean corpuscular hemoglobin [Entitic mass] by Automated count 30.0 pg 27-31 N [facility] l Erythrocyte mean corpuscular hemoglobin concentration [Mass/volume] in Cord blood 31.3 g/dL 33-37 Below low normal [facility] Erythrocyte distribution width [Entitic volume] by Automated cou nt 16 % 11-15 Above high normal [facility] Platelets [#/volume] in Blood by Automated count 460 10*3/uL 130-472 N [facility] Platelet mean volume [Entitic volume] in Blood 9.6 fL 9.1-13.1 N [facility] Neutrophils/100 leukocytes in Blood by Automated count 32.4 % 41-77 Below low normal [facility] Neutrophils [#/volume] in Blood by Automated count 2.7 U 1.7-7.6 N [facility] Lymphocytes/100 leukocytes in Blood by Automated count 51.3 % 14-46 Above high normal [facility] Lymphocytes [#/volume] in Blood by Automated count 4.3 U 0.6-4.6 N [facility] Monocytes/100 leukocytes in Blood by Automated count 6.7 % 4-12 [facility] Monocytes [#/volume] in Blood by Automated count 0.6 U 0.2-1.2 N [facility] Eosinophils/100 leukocytes in Blood by Automated count 8.4 % 0-7 Above high normal [facility] Eosinophils [#/volume] in Blood by Automated count 0.7 U 0.0-0.5 Above high normal [facility] Basophils/100 leukocytes in Blood by Automated count 0.8 % 0.4-1 .3 N [facility] Basophils [#/volume] in Blood by Automated count 0.1 U 0.0-0.2 N [facility] NUCLEATED RED BLOOD CELL 0 % [facility] NUCLEATED RED BLOOD CELL# 0 U [facility] Immature granulocytes [Presence] in Blood by Automated count 0-2 N [facility] Immature granulocytes [#/volume] in Blood by Automated count 0.0 U 0-0.1 N [facility] Manual Differential panel - Blood NO [facility] ID Date Data Source [id number] 03/01/2019 06:35:00 AM EST [facility] Name Value Range Interpretation Code Description Data Tashia rce(s) Supporting Document(s) Urea nitrogen [Mass/volume] in Serum or Plasma 17 mg/dL 9-23 N [facility] Sodium [Moles/volume] in Serum or Plasma 142 mmol/L 132-146 N [facility] Potassium [Moles/volume] in Serum or Plasma 4.4 mmol/L 3.5-5.5 N [facility] Chloride [Moles/volume] in Serum or Plasma 108 mmol/L 99-109 [facility] Carbon dioxide, total [Moles/volume] in Serum or Plasma 27 mmol/L 20 -31 [facility] Anion gap in Serum or Plasma 11 mmol/L 8-16 [facility] Glucose [Mass/volume] in Serum or Plasma 122 mg/dL 74-106 Above high normal [facility] Creatinine 0.6 mg/dL 0.5-1.1 [facility] Glomerular filtration rate/1.73 sq M.pre dicted [Volume Rate/Area] in Serum or Plasma Greater Than 60 ABOVE 60 [facility] Alanine aminotransferase [Enzymatic acti vity/volume] in Serum or Plasma by With P-5'-P 19 U/L 10-49 [facility] ital Aspartate aminotransferase [Enzymatic ac tivity/volume] in Serum or Plasma by With P-5'-P 13 U/L 0-33 [facility] pital Alkaline phosphatase [Enzymatic activity/volume] in Serum or Plasma 113 U/L 45-129 [facility] Calcium [Mass/volume] in Serum or Plasma 8.5 mg/dL 8.5-10.1 [facility] Bilirubin.total [Mass/volume] in Serum or Plasma 0.6 mg/dL 0.3-1.2 [facility] Albumin [Mass/volume] in Serum or Plasma by Bromocresol purple (BCP) dye binding method 2.7 g/dL 3.2-4.8 Below low normal [facility] Protein [Mass/volume] in Serum or Plasma 5.8 g/dL 5.7-8.2 [facility] ID Date Data Source [id number] 03/01/2019 06:35:00 AM [facility] Name Value Range Interpretation Code Description Data Tashia rce(s) Supporting Document(s) Phosphate [Mass/volume] in Serum or Plasma 4.0 mg/dL 2.4-5.1 [facility] ID Date Data Source [id number] 03/01/2019 06:35:00 AM [facility] Name Value Range Interpretation Code Description Data Tashia rce(s) Supporting Document(s) Magnesium [Mass/volume] in Serum or Plasma 2.1 mg/dL 1.3-2.7 N [facility] ID Date Data Source [id number] 02/28/2019 11:04:00 AM EST [facility] Name: CASSIE JIANG : 1955 Age: 63 MR#: [id number] Admit Date: 02/19/19 Provider: Fallon Lerma NP [...] to go to a rehabilitation center in [facility] where her family is present. He [...] Admit to Inpatient, Acute [STATUS] Routine Location: [facility] Primary diagnosis: s/p femur fracture Isolation: [...] 34.7 L, Lymph % (Auto) 46.5 H, [place] % (Auto) 7.5, Eos % (Auto) 10.2 [...] initial encounter for closed fracture SNOMED Code(s): 725464492 Permanent Plan: Continue with OT/ PT. continue with pain management and trending labs for anemia postop. Continue to monitor surgical sites for signs symptoms of infection. explore short-term rehabilitation options (2) GERD (gastroesophageal reflux disease): Code(s): K21.9 - Gastro-esophageal reflux disease without esophagitis SNOMED Code(s): 058696158 Permanent Plan: Continue with home medication pantoprazole (3) Chronic constipation: Code(s): K59.09 - Other constipation SNOMED Code(s): 772939976 Permanent Plan: Continue to monitor, bowel regime as ordered (4) Hypothyroid: Code(s): E03.9 - Hypothyroidism, unspecified SNOMED Code(s): 86574982 Permanent Plan: Continue with levothyroxine (5) Type 2 diabetes mellitus: Code(s): E11.9 - Type 2 diabetes mellitus without complications SNOMED Code(s): 64391559 Permanent Plan: Accu-Cheks AC at bedtime with sliding scale coverage as well as Januvia. Consistant carb diet. (6) Hyperlipidemia: Code(s): E78.5 - Hyperlipidemia, unspecified SNOMED Code(s): 98284059 Permanent Plan: Continue home medication pravastatin (7) Fibromyalgia: Code(s): M79.7 - Fibromyalgia SNOMED Code(s): 761912530 Permanent Plan: Gabapentin and Cymbalta (8) Depression: Code(s): F32.9 - Major depressive disorder, single episode, unspecified SNOMED Code(s): 92050000 Permanent Plan: Cymbalta and Lexapro, Rozerem for insomnia (9) Chronic pain: Code(s): G89.29 - Other chronic pain SNOMED Code(s): 69499857 Permanent Plan: Baclofen and Flexeril for back spasms, EpiPen f or neuropathy, oxycodone 1 to 2 tablets every 4 hours for stop pain, Voltaren topical and home dose of prednisone 10 mg daily A P Free Text/Narrative :: Patient is 8 days postop. continue with DVT prophylaxis. Participation in PT OT is progressing. Patient is interested in short-term rehabilitation in [facility] so she can be closer to [...] com pleted Never Smoked Cigarettes [facility] ([employer] [facility] [place]) Smoking 03/12/2020 12:00:00 AM EST Patient has never smoked co mpleted Patient has never smoked [facility] ([facility], ) Smoking 08/08/2019 12:00:00 AM EDT Never Smoker completed Never S moker eCW1 ([facility]) Smoking 08/08/2019 12:00:00 AM EDT Never Smoker completed Never S moker eCW1 ([facility]) Smoking 08/08/2019 12:00:00 AM EDT Never Smoker completed Never S moker eCW1 ([facility]) Smoking 08/08/2019 12:00:00 AM EDT Never Smoker completed Never S moker eCW1 ([facility]) Smoking 08/08/2019 12:00:00 AM EDT Never Smoker completed Never S moker eCW1 ([facility]) Smoking 08/08/2019 12:00:00 AM EDT Never Smoker completed Never S moker eCW1 ([facility]) Smoking 08/08/2019 12:00:00 AM EDT Never Smoker completed Never S moker eCW1 ([facility]) Smoking 08/08/2019 12:00:00 AM EDT Never Smoker completed Never S moker eCW1 ([facility]) Smoking 08/08/2019 12:00:00 AM EDT Never Smoker completed Never S moker eCW1 ([facility]) 04/03/2019 11:02:00 AM EST Never smoker completed Never s [facility] Smoking 04/03/2019 11:02:00 AM EST Never smoker completed Never s [facility] 04/03/2019 11:02:00 AM EST Never smoker completed Never s [facility] Smoking 04/03/2019 11:02:00 AM EST Never smoker completed Never s [facility] 04/03/2019 11:02:00 AM EST Never smoker completed Never s [facility] Smoking 04/03/2019 11:02:00 AM EST Never smoker completed Never s [facility] 03/06/2019 07:54:34 AM EST Never smoker completed Never s [facility] 03/06/2019 07:54:34 AM EST Never smoker completed Never s [facility] 03/06/2019 07:54:34 AM EST Never smoker completed Never s [facility] 03/06/2019 07:54:34 AM EST Never smoker completed Never s [facility] 03/06/2019 07:54:34 AM EST Never smoker completed Never s [facility] 03/06/2019 07:54:34 AM EST Never smoker completed Never s [facility] Smoking 03/06/2019 07:54:00 AM EST Never smoker completed Never s [facility] Smoking 03/06/2019 07:54:00 AM EST Never smoker completed Never s [facility] Smoking 03/06/2019 07:54:00 AM EST Never smoker completed Never s [facility] Vital Signs ID Date Data Source UNK Name Value Range Interpretation Code Description Data Source(s) Systolic blood pressure 134 mm[Hg] 134 mm[Hg] A THENA ([facility]) Diastolic blood pressure 85 mm[Hg] 85 mm[Hg] MARILIA ([facility]) Body surface area Derived from formula 2.[address] [facility] ([facility], ) Body weight 103.[address] [facility] ([facility]) Willet body weight 130 [lb_av] 130 [lb_av] MEDEN T ([facility]) Body mass index (BMI) [Ratio] 37.0 kg/m2 37.0 k g/m2 [facility] ([facility]) Body weight 229.00 [lb_av] 229.00 [lb_av] MEDEN T ([facility], ) Body height 66 [in_i] 66 [in_i] [facility] ([facility]) 5'6" Oxygen saturation in Arterial blood by Pulse oximetry 98 % 98 % [facility] ([facility]) Room Air Heart rate 88 /min 88 /min [facility] ([facility]) Diastolic blood pressure 76 mm[Hg] 76 mm[Hg] [facility] ([facility]) Systolic blood pressure 126 mm[Hg] 126 mm[Hg] [facility] Wil[place] body weight 130 [lb_av] 130 [lb_av] MEDEN T ([facility]) Body height 66 [in_i] 66 [in_i] [facility] ([facility] [place]) 5'6" Systolic blood pressure 139 mm[Hg] 139 mm[Hg] A THENA ([facility]) Diastolic blood pressure 90 mm[Hg] 90 mm[Hg] MARILIA ([facility]) Systolic blood pressure 139 mm[Hg] 139 mm[Hg] A THENA ([facility]) Diastolic blood pressure 90 mm[Hg] 90 mm[Hg] MARILIA ([facility]) Systolic blood pressure 139 mm[Hg] 139 mm[Hg] A THENA ([facility]) Diastolic blood pressure 90 mm[Hg] 90 mm[Hg] MARILIA ([facility]) Systolic blood pressure 139 mm[Hg] 139 mm[Hg] A THENA ([facility]) Diastolic blood pressure 90 mm[Hg] 90 mm[Hg] MARILIA ([facility]) Systolic blood pressure 139 mm[Hg] 139 mm[Hg] A THENA ([facility]) Diastolic blood pressure 90 mm[Hg] 90 mm[Hg] MARILIA ([facility]) Systolic blood pressure 139 mm[Hg] 139 mm[Hg] A THENA ([facility]) Diastolic blood pressure 90 mm[Hg] 90 mm[Hg] MARILIA ([facility]) Systolic blood pressure 139 mm[Hg] 139 mm[Hg] A THENA ([facility]) Diastolic blood pressure 90 mm[Hg] 90 mm[Hg] MARILIA ([facility]) Systolic blood pressure 139 mm[Hg] 139 mm[Hg] A THENA ([facility]) Diastolic blood pressure 90 mm[Hg] 90 mm[Hg] MARILIA ([facility]) Systolic blood pressure 139 mm[Hg] 139 mm[Hg] A THENA ([facility]) Diastolic blood pressure 90 mm[Hg] 90 mm[Hg] MARILIA ([facility]) Systolic blood pressure 139 mm[Hg] 139 mm[Hg] A THENA ([facility]) Diastolic blood pressure 90 mm[Hg] 90 mm[Hg] MARILIA ([facility]) Systolic blood pressure 139 mm[Hg] 139 mm[Hg] A THENA ([facility]) Diastolic blood pressure 90 mm[Hg] 90 mm[Hg] MARILIA ([facility]) Systolic blood pressure 139 mm[Hg] 139 mm[Hg] A THENA ([facility]) Diastolic blood pressure 90 mm[Hg] 90 mm[Hg] MARILIA ([facility]) Diastolic blood pressure 74 mm[Hg] 74 mm[Hg] eCW1 ([facility]) Systolic blood pressure 124 mm[Hg] 124 mm[Hg] e CW1 ([facility]) Body mass index (BMI) [Ratio] 35.67 kg/m2 35.67 kg/m2 eCW1 ([facility]) Body height 66 [in_i] 66 [in_i] eCW1 ([facility]) Body weight 221 [lb_av] 221 [lb_av] eCW1 ([facility]) Body surface area Derived from formula 2.[address] [facility] ([facility]) Body weight 98.[address] [facility] ([facility] [place]) Wil[place] body weight 130 [lb_av] 130 [lb_av] MEDEN T ([facility]) Body mass index (BMI) [Ratio] 35.2 kg/m2 35.2 k g/m2 [facility] ([facility]) Body weight 218.00 [lb_av] 218.00 [[facility]_av] [facility] Body height 66 [in_i] 66 [in_i] [facility] ([facility] [place]) 5'6" Body temperature 97.1 [degF] 97.1 [degF] [facility] ([facility]) Oxygen saturation in Arterial blood by Pulse oximetry 97 % 97 % [facility] ([facility]) Heart rate 89 /min 89 /min [facility] ([facility]) Diastolic blood pressure 82 mm[Hg] 82 mm[Hg] [facility] ([facility]) Systolic blood pressure 124 mm[Hg] 124 mm[Hg] [facility] Body mass index (BMI) [Ratio] 34.70 kg/m2 34.70 kg/m2 W1 ([facility]) Body height 66 [in_us] 66 [in_us] eCW1 ([facility]) Body weight Measured 215 [lb_av] 215 [lb_av] eC W1 ([facility]) Diastolic blood pressure 72 mm[Hg] 72 mm[Hg] eCW1 ([facility]) Systolic blood pressure 108 mm[Hg] 108 mm[Hg] e CW1 ([facility]) Body temperature 97.1 [degF] 97.1 [degF] eCW1 ( [facility]) Respiratory rate 18 /min 18 /min eCW1 ([facility]) Heart rate 94 /min 94 /min eCW1 ([facility]) Body mass index (BMI) [Ratio] 29.99 kg/m2 29.99 kg/m2 eCW1 ([facility]) Body height 66 [in_us] 66 [in_us] eCW1 ([facility]) Body weight Measured [lb_av] eCW1 ([facility]) Diastolic blood pressure 80 mm[Hg] 80 mm[Hg] eCW1 ([facility]) Systolic blood pressure 122 mm[Hg] 122 mm[Hg] e CW1 ([facility]) Body temperature 98.5 [degF] 98.5 [degF] eCW1 ( [facility]) Respiratory rate 18 /min 18 /min eCW1 ([facility]) Heart rate 81 /min 81 /min eCW1 ([facility]) Body mass index (BMI) [Ratio] 35.51 kg/m2 35.51 kg/m2 eCW1 ([facility]) Body height 66 [in_us] 66 [in_us] eCW1 ([facility]) Body weight Measured 220 [lb_av] 220 [lb_av] eC W1 ([facility]) Patient Treatment Plan of Care Planned Activity Planned Date Details Description Data Source (s) Cyclobenzaprine hydrochloride 10 MG Oral Tablet 02/07/2020 12:00:00 AM EST eCW1 ([facility]) Cyclobenzaprine hydrochloride 10 MG Oral Tablet 02/07/2020 12:00:00 AM EST eCW1 ([facility]) Cyclobenzaprine hydrochloride 5 MG Oral Tablet 02/07/2020 12:00:00 AM EST eCW1 ([facility]) Cyclobenzaprine hydrochloride 10 MG Oral Tablet 02/07/2020 12:00:00 AM EST eCW1 ([facility]) Amitriptyline Hydrochloride 25 MG Oral Tablet 12/06/2019 12:00:00 A M EDT eCW1 ([facility]) Amitriptyline Hydrochloride 25 MG Oral Tablet 12/06/2019 12:00:00 A M EDT eCW1 ([facility]) Amitriptyline Hydrochloride 25 MG Oral Tablet 12/06/2019 12:00:00 A M EDT eCW1 ([facility]) Amitriptyline Hydrochloride 25 MG Oral Tablet 12/06/2019 12:00:00 A M EDT eCW1 ([facility]) Amitriptyline Hydrochloride 25 MG Oral Tablet 12/06/2019 12:00:00 A M EDT eCW1 ([facility]) Amitriptyline Hydrochloride 25 MG Oral Tablet 12/06/2019 12:00:00 A M EDT eCW1 ([facility]) Doxycycline Monohydrate 100 MG 03/23/2019 12:00:00 AM EST eCW1 ([facility]) tramadol hydrochloride 50 MG Oral Tablet MARILIA ([facility]) Prednisone 20 MG Oral Tablet MARILIA ([facility]) Acetaminophen 325 MG / Oxycodone Hydrochloride 5 MG Oral Tablet MARILIA ([facility]) Oxycodone Hydrochloride 5 MG Oral Tablet MARILIA ([facility]) tramadol hydrochloride 50 MG Oral Tablet MARILIA ([facility]) Prednisone 20 MG Oral Tablet MARILIA ([facility]) Acetaminophen 325 MG / Oxycodone Hydrochloride 5 MG Oral Tablet MARILIA ([facility]) Oxycodone Hydrochloride 5 MG Oral Tablet MARILIA ([facility]) Methylprednisolone 4 MG Oral Tablet MARILIA ([facility]) Methylprednisolone 2 MG Oral Tablet [Medrol] MARILIA ([facility]) Estradiol 0.1 MG/ML Vaginal Cream MARILIA ([facility]) 0.3 ML Enoxaparin sodium 100 MG/ML Prefilled Syringe MARILIA ([facility]) Doxycycline Monohydrate 100 MG Oral Capsule MARILIA ([facility]) Ciprofloxacin 250 MG Oral Tablet MARILIA ([facility]) cefdinir 300 MG Oral Capsule MARILIA ([facility]) Methylprednisolone 4 MG Oral Tablet MARILIA ([facility]) Methylprednisolone 2 MG Oral Tablet [Medrol] MARILIA ([facility]) glimepiride 2 MG Oral Tablet MARILIA ([facility]) glimepiride 1 MG Oral Tablet MARILIA ([facility]) Estradiol 0.1 MG/ML Vaginal Cream MARILIA ([facility]) 0.3 ML Enoxaparin sodium 100 MG/ML Prefilled Syringe MARILIA ([facility]) Doxycycline Monohydrate 100 MG Oral Capsule MARILIA ([facility]) Ciprofloxacin 250 MG Oral Tablet MARILIA ([facility]) cefdinir 300 MG Oral Capsule MARILIA ([facility]) Amoxicillin 500 MG / Clavulanate 125 MG Oral Tablet MARILIA ([facility]) Alprazolam 1 MG Oral Tablet MARILIA ([facility]) Amoxicillin 500 MG / Clavulanate 125 MG Oral Tablet MARILIA ([facility]) Alprazolam 1 MG Oral Tablet MARILIA ([facility]) tramadol hydrochloride 50 MG Oral Tablet MARILIA ([facility]) tramadol hydrochloride 50 MG Oral Tablet MARILIA ([facility]) Prednisone 20 MG Oral Tablet MARILIA ([facility]) Acetaminophen 325 MG / Oxycodone Hydrochloride 5 MG Oral Tablet MARILIA ([facility]) Oxycodone Hydrochloride 5 MG Oral Tablet MARILIA ([facility]) Methylprednisolone 4 MG Oral Tablet MARILIA ([facility]) Methylprednisolone 2 MG Oral Tablet [Medrol] MARILIA ([facility]) Estradiol 0.1 MG/ML Vaginal Cream MARILIA ([facility]) 0.3 ML Enoxaparin sodium 100 MG/ML Prefilled Syringe MARILIA ([facility]) Doxycycline Monohydrate 100 MG Oral Capsule MARILIA ([facility]) Ciprofloxacin 250 MG Oral Tablet MARILIA ([facility]) cefdinir 300 MG Oral Capsule MARILIA ([facility]) Amoxicillin 500 MG / Clavulanate 125 MG Oral Tablet MARILIA ([facility]) Alprazolam 1 MG Oral Tablet MARILIA ([facility]) tramadol hydrochloride 50 MG Oral Tablet [facility]ILIA ([facility]) Prednisone 20 MG Oral Tablet MARILIA ([facility]) Acetaminophen 325 MG / Oxycodone Hydrochloride 5 MG Oral Tablet MARILIA ([facility]) Oxycodone Hydrochloride 5 MG Oral Tablet MARIILA ([facility]) Methylprednisolone 4 MG Oral Tablet MARILIA ([facility]) Methylprednisolone 2 MG Oral Tablet [Medrol] MARILIA ([facility]) Estradiol 0.1 MG/ML Vaginal Cream MARILIA ([facility]) 0.3 ML Enoxaparin sodium 100 MG/ML Prefilled Syringe MARILIA ([facility]) Doxycycline Monohydrate 100 MG Oral Capsule MARILIA ([facility]) Ciprofloxacin 250 MG Oral Tablet MARILIA ([facility]) cefdinir 300 MG Oral Capsule MARILIA ([facility]) Amoxicillin 500 MG / Clavulanate 125 MG Oral Tablet [facility]IA ([facility]) Alprazolam 1 MG Oral Tablet [facility]ILIA ([facility]) Prednisone 20 MG Oral Tablet [facility]ILIA ([facility]) Acetaminophen 325 MG / Oxycodone Hydrochloride 5 MG Oral Tablet [facility]ILIA ([facility]) Oxycodone Hydrochloride 5 MG Oral Tablet MARILIA ([facility]) Methylprednisolone 4 MG Oral Tablet [facility]IA ([facility]) Methylprednisolone 2 MG Oral Tablet [Medrol] MARILIA ([facility]) Estradiol 0.1 MG/ML Vaginal Cream MARILIA ([facility]) 0.3 ML Enoxaparin sodium 100 MG/ML Prefilled Syringe MARILIA ([facility]) Doxycycline Monohydrate 100 MG Oral Capsule MARILIA ([facility]) Ciprofloxacin 250 MG Oral Tablet [facility]ILIA ([facility]) cefdinir 300 MG Oral Capsule [facility]ILIA ([facility]) Amoxicillin 500 MG / Clavulanate 125 MG Oral Tablet MARILIA ([facility]) Alprazolam 1 MG Oral Tablet MARILIA ([facility])
[2020-04-29 11:05] LABS: HEMATOCRIT 30.4 % (36.0-47.0); HEMOGLOBIN 9.5 g/dl (12.0-15.5); MEAN CORPUSCULAR HEMOGLOBIN 27.8 pg (27.0-33.0); MEAN CORPUSCULAR HGB CONC 31.3 g/dl (32.0-36.5); MEAN CORPUSCULAR VOLUME 88.9 fl (80.0-96.0); PLATELET COUNT, AUTOMATED 261 10^3/uL (150-450); RED BLOOD COUNT 3.42 10^6/uL (4.00-5.40); WHITE BLOOD COUNT 9.6 10^3/uL (4.0-10.0)
--- NOTE | 2020-04-29 11:19 | CR.PDOC ---
General Date of Consultation: Apr 29, 2020 Consultation REASON FOR CONSULTATION/CHIEF COMPLAINT: nose bleed. HISTORY OF PRESENT ILLNESS: 64 yo female with acute onset nose bleed, uncontrolled with diorect poreessure. Came to the ER this morning, had epistat balloon inserted in to right nostril. possible posterior source or GI bleed. ENT consulted. ALLERGIES: Please see below. HOME MEDICATIONS: Please see below. PAST MEDICAL HISTORY: 1. reviewed. PAST SURGICAL HISTORY: 1. reviewed. FAMILY HISTORY: non-contributory SOCIAL HISTORY: Marital status and/or living arrangements: Children: Employment: Tobacco use:nonsmoker ETOH: Illicit drug use: IV drug use: Other relevant social factors: REVIEW OF SYSTEMS: CONSTITUTIONAL: neg. HEENT: neg. CARDIOVASCULAR: . RESPIRATORY: . GENITOURINARY: . MUSCULOSKELETAL: . GASTROINTESTINAL: . SKIN: . NEUROLOGICAL: . PSYCHIATRIC: . ENDOCRINE: . HEMATOLOGIC/LYMPHATIC: . ALLERGIC/IMMUNOLOGIC: . PHYSICAL EXAMINATION: VITAL SIGNS: Please see below. GENERAL APPEARANCE: elderly female in NAD, lying on ER stretcher, dried blood on nose, no active bleed, epistat balloon in place. HEENT: Ears - clear, no cerumen; nose - epistat balloon in place right nare; mouth - edentulous, tonsils 2+, no exudate, FOM and BOT normal, mucosa normal. NEUROLOGICAL: facial nerve intact. PROCEDURE: Nasal Endoscopy - left nare sprayed with afrin. Flexible nasopharyngoscope inserted, left nasal mucosa dry, turbinates normal, no pus/polyps, nasopharynx has normal choanae; epistat removed form right nare, endoscopy shows deviated septum right, normal turbinates, rapid bleeding vessell anterior septum, nasopharynx-normal choanae. The nasal septum has no perforations, but has an active anterior septum bleed on the right. Flexible laryngoscopy - the nasopharyngoscope was advanced through the na sopharynx and down to the lower pharynx. Larynx/HP/pyriform sinuses, vallecula, cricopharyngeus are normal, there is no blood at the cricopharyngeus. Control of Epistaxis - the right anterior septum was cauterized with silver nitrate, packed with surgicel and a bacitracin coated merocel sponge. The left septum was lightly packed with surgicel as well. The epistaxis was completely controlled in this fashion. LABORATORY DATA: Please see below. ASSESSMENT/PLAN: 1. Epistaxis/ broad spectrum antibiotic (doxycycline), tylenol, follow up in ENT clinc [facility] for packing removal. Laboratory Tests Test 04/29/20 05:39 Blood Urea Nitrogen 50 MG/DL (7-18) H Creatinine 0.90 MG/DL (0.55-1.30) Glomerular Filtration Rate > 60.0 (>45) Fasting Glucose 272 MG/DL (70-100) H Calcium Level 8.5 MG/DL (8.8-10.2) L Total Bilirubin 0.7 MG/DL (0.2-1.0) Aspartate Amino Transf (AST/SGOT) 8 U/L (7-37) Alanine Aminotransferase (ALT/SGPT) 15 U/L (12-78) Total Protein 6.2 GM/DL (6.4-8.2) L Sodium Level 139 MEQ/L (136-145) Albumin 2.9 GM/DL (3.2-5.2) L Alkaline Phosphatase 70 U/L (45-117) Potassium Level 4.3 MEQ/L (3.5-5.1) Chloride Level 101 MEQ/L (98-107) Carbon Dioxide Level 25 MEQ/L (21-32) Anion Gap 13 MEQ/L (8-16) Lipase 54 U/L (73-393) L Laboratory Tests 04/29/20 05:39 Vital Signs/I&O Vital Signs Date Time Temp Pulse Resp B/P (MAP) Pulse Ox O2 Delivery O2 Flow Rate FiO2 04/29/20 10:20 20 04/29/20 09:52 102 100 04/29/20 09:45 131/82 (98) 04/29/20 09:30 Nasal Cannula 4.0 04/29/20 09:22 97.3 04/29/20 06:30 100 Laboratory Data Labs 24H Laboratory Tests 2 04/29/20 05:39: Immature Granulocyte % (Auto) 0.4, Neutrophils (%) (Auto) 55.6, Lymphocytes (%) (Auto) 37.6, Monocytes (%) (Auto) 4.7, Eosinophils (%) (Auto) 1.1, Basophils (%) (Auto) 0.6, Neutrophils # (Auto) 5.1, Lymphocytes # (Auto) 3.4, Monocytes # (Auto) 0.4, Eosinophils # (Auto) 0.1, Basophils # (Auto) 0.1, Nucleated Red Blood Cells % (auto) 0.0, Prothrombin Time 13.8, Prothromb Time International Ratio 1.04, Activated Partial Thromboplast Time 21.0L, Anion Gap 13, Glomerular Filtration Rate > 60.0, Lactic Acid Level 6.1*H, Calcium Level 8.5L, Total Bilirubin 0.7, Aspartate Amino Transf (AST/SGOT) 8, Alanine Aminotransferase (ALT/SGPT) 15, Alkaline Phosphatase 70, Total Creatine Kinase 81, Creatine Kinase MB 2.3, Creatine Kinase MB Relative Index 2.84, Troponin I < 0.02, Total Protein 6.2L, Albumin 2.9L, Albumin/Globulin Ratio 0.9L, Lipase 54L CBC/BMP Laboratory Tests 04/29/20 05:39 Microbiology Microbiology 04/29/20 Respiratory Virus Panel (PCR) ([facility]) - Final, Complete Allergies Coded Allergies: gatifloxacin (Verified Allergy, Unknown, 04/29/20) ITCHING, REDNESS rosuvastatin (Verified Allergy, Unknown, 04/29/20) MYALGIA simvastatin (Verified Allergy, Unknown, 04/29/20) MYALGIA Xanthines (Verified Adverse Reaction, Intermediate, severe headache, 04/29/20) Sulfa (Sulfonamide Antibiotics) (Verified Adverse Reaction, Unknown, 04/29/20) TRIGGERS ASTHMA lemon (Verified Adverse Reaction, Unknown, 04/29/20) TRIGGERS ASTHMA rofecoxib (Verified Adverse Reaction, Unknown, 04/29/20) BRUISING theophylline (Verified Adverse Reaction, Unknown, 04/29/20) HEADACHE Home Medications Scheduled Amitriptyline HCl (Amitriptyline HCl) 25 Mg Tablet, 25 MG PO QHS, (Reported) Aspirin (Aspirin) 81 Mg Tab.chew, 81 MG PO DAILY, (Reported) Baclofen (Baclofen) 10 Mg Tab, 10 MG PO BID, (Reported) 0800, 1200 Baclofen (Baclofen) 10 Mg Tablet, 20 MG PO QHS, (Reported) Celecoxib (Celebrex) 200 Mg Capsule, 200 MG PO DAILY, (Reported) 1200 Cyclobenzaprine HCl (Cyclobenzaprine HCl) 10 Mg Tab, 10 MG PO TID, (Reported) 15MG TOTAL TID Cyclobenzaprine HCl (Cyclobenzaprine HCl) 5 Mg Tablet, 5 MG PO TID, (Reported) 15MG TOTAL TID Docusate Sodium (Colace) 100 Mg Cap, 200 MG PO BID, (Reported) 0800, 1200 Duloxetine Hcl (Cymbalta) 60 Mg Cap, 60 MG PO BID, (Reported) 0800, 1200 Ergocalciferol (Vitamin D2) (Vitamin D2) 50,000 Units Cap, 50,000 UNITS PO Q2WK, (Reported) TAKES ON TUESDAY Escitalopram Oxalate (Lexapro) 10 Mg Tab, 10 MG PO DAILY, (Reported) 1200 Esomeprazole Magnesium (Nexium) 20 Mg Cap, 40 MG PO DAILY, (Reported) Fluticasone/Vilanterol (Breo Ellipta 200-25 Mcg INH) 1 Each Blst.w.dev, 1 PUFF INH DAILY, (Reported) Folic Acid (Folic Acid) 1 Mg Tab, 1 MG PO DAILY, (Reported) 1200 Gabapentin (Gabapentin) 800 Mg Tab, 800 MG PO TID, (Reported) Glimepiride (Glimepiride) 2 Mg Tablet, 2 MG PO BID, (Reported) Indapamide (Indapamide) 2.5 Mg Tab, 2.5 MG PO DAILY, (Reported) 1200 Levothyroxine Sodium (Levothyroxine Sodium) 75 Mcg Tab, 75 MCG PO QAM, (Reported) Magnesium Oxide (Magnesium Oxide) 400 Mg Tablet, 400 MG PO BID, (Reported) Metformin HCl (Metformin HCl) 850 Mg Tab, 850 MG PO BID, (Reported) 0800, 1200 Potassium Chloride (Potassium Chloride) 20 Meq Tab, 20 MEQ PO DAILY, (Reported) Ramelteon (Rozerem) 8 Mg Tab, 8 MG PO QHS, (Reported) Rosuvastatin Calcium (Rosuvastatin Calcium) 40 Mg Tab, 40 MG PO DAILY, (Reported) Sitagliptin Phosphate (Januvia) 100 Mg Tablet, 100 MG PO DAILY, (Reported) Tamsulosin HCl (Flomax) 0.4 Mg Capsule, 0.4 MG PO QPM, (Reported) Scheduled PRN Albuterol Sulfate (Albuterol Sulfate) 2.5 Mg/0.5 Ml Neb, 2.5 MG INH QID PRN for SHORTNESS OF BREATH, (Reported) Albuterol Sulfate (Proventil Hfa) 108 Mcg/Act Aer, 2 PUFF INH QID PRN for SHORTNESS OF BREATH, (Reported) Diclofenac Sodium (Voltaren) 1 % Gel, 4 GM TOP QID PRN for PAIN, (Reported) APPLY TO BOTH KNEES Sennosides (Senna Lax) 8.6 Mg Tablet, 17.2 MG PO QHS PRN for CONSTIPATION, (Reported) ZACH JENKINS MD Apr 29, 2020 10:47
[2020-04-29 12:38] VITALS: BP 137/84
[2020-04-29] MEDS: POTASSIUM CHLORIDE 10 MEQ SR TABLET PO SCH (14:19)
[2020-04-29] MEDS: DOCUSATE SODIUM 100MG CAPSULE PO SCH ×2 (14:19→21:50)
[2020-04-29] MEDS: LEVOTHYROXINE 75MCG TABLET (0.075MG) PO SCH (14:20)
[2020-04-29] MEDS: DOXYCYCLINE HYCLATE 100MG TABLET PO SCH ×2 (14:20→21:50)
[2020-04-29] MEDS: INDAPAMIDE 1.25MG TABLET PO SCH (14:20)
[2020-04-29] MEDS: FOLIC ACID 1 MG TAB PO SCH (14:21)
[2020-04-29] MEDS: OLANZapine 5 MG TAB PO PRN ×2 (14:21→21:51)
[2020-04-29] MEDS: ESCITALOPRAM OXALATE 10 MG TAB (LEXAPRO) PO SCH (14:21)
--- NOTE | 2020-04-29 14:48 | HPEPDOC ---
General Date of Admission Apr 29, 2020 at 05:14 Date of Service: Apr 29, 2020 Chief Complaint The patient is a 64-year-old female admitted with a reason for visit of Epistaxis. Source: Patient History of Present Illness Mrs. Jiang is a 64 year old female with asthma and anxiety who presents with persistent nose bleed. Yesterday, she was in her normal state of health. She s tarted to have a nose bleed that would come and go. Denies trauma or falls. She had nose bleeds as a child and thought it would go away on its own. The nose bleed became continuous and she had dyspnea, abdominal pain, and coughed up blood. EMS brought her into the ED. She denied any fever, chest pain, or lightheadedness. Blood pressure remained stable. Hemoglobin was low at 7.7. ED was not able to stop the nose bleed and ENT, Dr. Pemberton was called in. He cauterized the right anterior septum and placed an epistat balloon into the right nostril to stop the bleed. Recommended leaving the packing there until Tuesday when he can see her in the office to remove it. Also recommended to be on antibiotics while the packing is in her nose. Otherwise, she was given 2u of pRBC in the ED and she responded appropriately. Patient will be placed in observation for epistaxis requiring blood transfusion. Home Medications Scheduled Amitriptyline HCl (Amitriptyline HCl) 25 Mg Tablet, 25 MG PO QHS, (Reported) Aspirin (Aspirin) 81 Mg Tab.chew, 81 MG PO DAILY, (Reported) Baclofen (Baclofen) 10 Mg Tab, 10 MG PO BID, (Reported) 0800, 1200 Baclofen (Baclofen) 10 Mg Tablet, 20 MG PO QHS, (Reported) Celecoxib (Celebrex) 200 Mg Capsule, 200 MG PO DAILY, (Reported) 1200 Cyclobenzaprine HCl (Cyclobenzaprine HCl) 10 Mg Tab, 10 MG PO TID, (Reported) 15MG TOTAL TID Cyclobenzaprine HCl (Cyclobenzaprine HCl) 5 Mg Tablet, 5 MG PO TID, (Reported) 15MG TOTAL TID Docusate Sodium (Colace) 100 Mg Cap, 200 MG PO BID, (Reported) 0800, 1200 Duloxetine Hcl (Cymbalta) 60 Mg Cap, 60 MG PO BID, (Reported) 0800, 1200 Ergocalciferol (Vitamin D2) (Vitamin D2) 50,000 Units Cap, 50,000 UNITS PO Q2WK, (Reported) TAKES ON TUESDAY Escitalopram Oxalate (Lexapro) 10 Mg Tab, 10 MG PO DAILY, (Reported) 1200 Esomeprazole Magnesium (Nexium) 20 Mg Cap, 40 MG PO DAILY, (Reported) Fluticasone/Vilanterol (Breo Ellipta 200-25 Mcg INH) 1 Each Blst.w.dev, 1 PUFF INH DAILY, (Reported) Folic Acid (Folic Acid) 1 Mg Tab, 1 MG PO DAILY, (Reported) 1200 Gabapentin (Gabapentin) 800 Mg Tab, 800 MG PO TID, (Reported) Glimepiride (Glimepiride) 2 Mg Tablet, 2 MG PO BID, (Reported) Indapamide (Indapamide) 2.5 Mg Tab, 2.5 MG PO DAILY, (Reported) 1200 Levothyroxine Sodium (Levothyroxine Sodium) 75 Mcg Tab, 75 MCG PO QAM, (Reported) Magnesium Oxide (Magnesium Oxide) 400 Mg Tablet, 400 MG PO BID, (Reported) Metformin HCl (Metformin HCl) 850 Mg Tab, 850 MG PO BID, (Reported) 0800, 1200 Potassium Chloride (Potassium Chloride) 20 Meq Tab, 20 MEQ PO DAILY, (Reported) Ramelteon (Rozerem) 8 Mg Tab, 8 MG PO QHS, (Reported) Rosuvastatin Calcium (Rosuvastatin Calcium) 40 Mg Tab, 40 MG PO DAILY, (Reported) Sitagliptin Phosphate (Januvia) 100 Mg Tablet, 100 MG PO DAILY, (Reported) Tamsulosin HCl (Flomax) 0.4 Mg Capsule, 0.4 MG PO QPM, (Reported) Scheduled PRN Albuterol Sulfate (Albuterol Sulfate) 2.5 Mg/0.5 Ml Neb, 2.5 MG INH QID PRN for SHORTNESS OF BREATH, (Reported) Albuterol Sulfate (Proventil Hfa) 108 Mcg/Act Aer, 2 PUFF INH QID PRN for SHORTNESS OF BREATH, (Reported) Diclofenac Sodium (Voltaren) 1 % Gel, 4 GM TOP QID PRN for PAIN, (Reported) APPLY TO BOTH KNEES Sennosides (Senna Lax) 8.6 Mg Tablet, 17.2 MG PO QHS PRN for CONSTIPATION, (Reported) Allergies Coded Allergies: gatifloxacin (Verified Allergy, Unknown, 04/29/20) ITCHING, REDNESS rosuvastatin (Verified Allergy, Unknown, 04/29/20) MYALGIA simvastatin (Verified Allergy, Unknown, 04/29/20) MYALGIA Xanthines (Verified Adverse Reaction, Intermediate, severe headache, 04/29/20) Sulfa (Sulfonamide Antibiotics) (Verified Adverse Reaction, Unknown, 04/29/20) TRIGGERS ASTHMA lemon (Verified Adverse Reaction, Unknown, 04/29/20) TRIGGERS ASTHMA rofecoxib (Verified Adverse Reaction, Unknown, 04/29/20) BRUISING theophylline (Verified Adverse Reaction, Unknown, 04/29/20) HEADACHE Past Medical History Medical History 1. Asthma 2. NIDDM 3. Hypothyroidism 4. Hyperlipidemia 5. Nonalcoholic fatty liver disease 6. Depression 7. Panic disorder 8. Agarophobia 9. Osteoporosis 10. Vitamin D deficiency 11. Morbid obesity 12. GERD 13. Essential tremor 14. Bilateral knee osteoarthritis 15. Anemia 16. Hypertension 17. CHF, diastolic 18. Right shoulder AC joint arthritis 19. Internal/external hemorrhoids 20. Fibrocystic breast disease 21. Cervical DJD 22. Urge incontinence 23. NICKI 24. L distal radius fracture 25. Pulmonary embolus 26. MRSA UTI 27. R distal femur comminuted fracture Surgical History 1. Laparoscopic cholecystectomy 2. CAREY/BSO 3. Lumbar laminectomy 4. Rectocele repair 5. Sinus surgery 6. TVT-NAIM 7. Left knee arthroplasty 8. Right foot hallux MTP fusion bunion surgery 9. Graft/PIN 10. IM nail for distal femur retrograde approach Family History Father: 96 yo. History of CHF, anemia Mother: 83 yo. History of CHF, RA Social History * Smoker: Denies Alcohol: Denies Drugs: denies A-FIB/CHADSVASC A-FIB History Current/History of A-Fib/PAF?: No Review of Systems Constitutional: Denies: Chills, Fever Eyes: Denies: Vision change ENT: Reports: Epistaxis Skin: Denies: Rash Pulmonary: Reports: Dyspnea (better than prior) Cardiovascular: Denies: Chest Pain Gastrointestinal: Reports: Abdominal Pain (Had prior, now resolved) Genitourinary: Reports: Incontinence; Denies: Dysuria Hematologic: Denies: Bruising Neurological: Denies: Other Symptoms (no paresthesias) Psych: Reports: Anxiety Physical Examination General Exam: Positive: Alert, Cooperative Eye Exam: Positive: EOMI; Negative: Sclera icteric ENT Exam: Positive: Other ENT (Right nostril packed) Neck Exam: Positive: Supple Chest Exam: Positive: Clear to auscultation, Diminished Heart Exam: Positive: Rate Normal, Regular Rhythm Abdomen Exam: Positive: Normal bowel sounds, Soft; Negative: Tenderness Extremity Exam: Positive: Edema (mild) Neuro Exam: Positive: Cranial Nerves 3-12 NL Psych Exam: Positive: Anxiety (very anxious) Vital Signs Vital Signs Date Time Temp Pulse Resp B/P (MAP) Pulse Ox O2 Delivery O2 Flow Rate FiO2 04/29/20 12:38 97.9 90 23 137/84 (101) 96 Room Air 04/29/20 11:46 04/29/20 06:30 100 Laboratory Data Labs 24H Laboratory Tests 2 04/29/20 05:39: Immature Granulocyte % (Auto) 0.4, Neutrophils (%) (Auto) 55.6, Lymphocytes (%) (Auto) 37.6, Monocytes (%) (Auto) 4.7, Eosinophils (%) (Auto) 1.1, Basophils (%) (Auto) 0.6, Neutrophils # (Auto) 5.1, Lymphocytes # (Auto) 3.4, Monocytes # (Auto) 0.4, Eosinophils # (Auto) 0.1, Basophils # (Auto) 0.1, Nucleated Red Blood Cells % (auto) 0.0, Prothrombin Time 13.8, Prothromb Time International Ratio 1.04, Activated Partial Thromboplast Time 21.0L, Anion Gap 13, Glomerular Filtration Rate > 60.0, Lactic Acid Level 6.1*H, Calcium Level 8.5L, Total Bilirubin 0.7, Aspartate Amino Transf (AST/SGOT) 8, Alanine Aminotransferase (ALT/SGPT) 15, Alkaline Phosphatase 70, Total Creatine Kinase 81, Creatine Kinase MB 2.3, Creatine Kinase MB Relative Index 2.84, Troponin I < 0.02, Total Protein 6.2L, Albumin 2.9L, Albumin/Globulin Ratio 0.9L, Lipase 54L 04/29/20 09:48: Lactic Acid Followup at 4 Hours 4.0*H 04/29/20 10:50: Nucleated Red Blood Cells % (auto) 0.0 CBC/BMP Laboratory Tests 04/29/20 05:39 04/29/20 10:50 Microbiology Microbiology 04/29/20 Respiratory Virus Panel (PCR) ([facility]) - Final, Complete Assessment/Plan Mrs. Jiang is a 64 year old female with asthma and anxiety who presents with persistent nose bleed. ENT cauterized and packed the right nostril. Patient to be on antibiotics while packing is in placed. Plan to see ENT outpatient on Tuesday for removal. Otherwise received 2u pRBC. Recheck H&H later in the day to see if her hemoglobin maintains after the packing. Plan / VTE VTE Prophylaxis Ordered?: Yes Plan Plan 1. Blood loss anemia from epistaxis -Controlled by ENT with cauterization and packing of right nostril -Keep packing in place until Tuesday. See outpatient for removal -Continue doxycycline until removal -Received 2u pRBC -Monitor CBC 2. Asthma -Has panic attacks where she feels short of breath, but she is saturating well -Continue inhalers 3. Hypothyroidism -Continue levothyroxine 4. Chronic pain syndrome -Continue with pain regimen 5. Anxiety/Panic attack -Continue duloxetine, escitalopram, and amitriptyline 6. Hypertension -Continue Indapamide 7. GERD -Continue pantoprazole 8. DVT ppx -No chemical ppx due to epistaxis. SCD and VANIs APRYL CRAWFORD DO Apr 29, 2020 14:03
[2020-04-29] MEDS ORDERED: LORazepam 2 MG/ML VIAL IV STA (15:51)
[2020-04-29] MEDS: CYCLOBENZAPRINE 5MG TABLET PO SCH ×2 (16:07→21:50)
[2020-04-29 16:35] LABS: HEMATOCRIT 32.9 % (36.0-47.0); HEMOGLOBIN 10.4 g/dl (12.0-15.5); MEAN CORPUSCULAR HEMOGLOBIN 27.7 pg (27.0-33.0); MEAN CORPUSCULAR HGB CONC 31.6 g/dl (32.0-36.5); MEAN CORPUSCULAR VOLUME 87.7 fl (80.0-96.0); PLATELET COUNT, AUTOMATED 257 10^3/uL (150-450); RED BLOOD COUNT 3.75 10^6/uL (4.00-5.40); WHITE BLOOD COUNT 12.8 10^3/uL (4.0-10.0)
--- NOTE | 2020-04-29 16:39 | REP ---
INDICATION: sob. COMPARISON: Comparison radiograph June 02, 2019.. TECHNIQUE: Portable AP sitting radiograph. FINDINGS: The lungs are well inflated and clear. Heart size is normal. The aorta is tortuous as before. Pulmonary vasculature is not increased. Pleural angles are sharp. No significant bony abnormality is appreciated. IMPRESSION: No active disease. <Electronically signed by Brayden Vinson > 04/29/20 [id number]
--- NOTE | 2020-04-29 16:47 | ECGEPIP ---
[facility] - ED Test Date: 2020-04-29 Pat Name: CASSIE ARTHUR Department: Room: - Gender: Female Content Writer: KENY : [id number] Requested By: Raghu Ortiz Order Number: [id number] Reading MD: Andrea Matson Measurements Intervals Hester Rate: 100 P: 27 GA: 182 QRS: 34 QRSD: 96 T: 53 QT: 376 QTc: 485 Interpretive Statements Normal sinus rhythm Nonspecific ST and T wave abnormality Similar to tracing done 03-21-18 Electronically Signed on 04-29-2020 16:46:55 EST by Andrea Matson
[2020-04-29] MEDS ORDERED: NS 500 ML IV ONE (17:00)
[2020-04-29] MEDS ORDERED: DEXTROSE 50% 50 ML SYRINGE IV PRN (19:00)
[2020-04-29] MEDS ORDERED: GLUCOSE 4GM CHEW TABLET PO PRN (19:00)
[2020-04-29] MEDS ORDERED: GLUCAGON INJ 1MG VIAL SC PRN (19:00)
[2020-04-29] MEDS: HumaLOG INSULIN (NovoLOG) PER UNIT SC SCH (21:00)
[2020-04-29] MEDS ORDERED: SENNA 8.6 MG TAB (SENOKOT) PO PRN (21:00)
[2020-04-29] MEDS: AMITRIPTYLINE 25MG TABLET PO SCH (21:50)
[2020-04-29] MEDS: BACLOFEN 10 MG TAB PO SCH (21:50)
[2020-04-29] MEDS: TAMSULOSIN 0.4 MG CAP PO SCH (21:50)
[2020-04-29] MEDS: RAMELTEON 8 MG TAB (ROZEREM) PO SCH (21:51)
[2020-04-29 22:00] VITALS: BP 135/83
[2020-04-30] VITALS (11 sets, daily range): BP systolic 127–150; BP diastolic 77–97
[2020-04-30 05:52] LABS: HEMATOCRIT 27.3 % (36.0-47.0); HEMOGLOBIN 8.7 g/dl (12.0-15.5); MEAN CORPUSCULAR HEMOGLOBIN 28.3 pg (27.0-33.0); MEAN CORPUSCULAR HGB CONC 31.9 g/dl (32.0-36.5); MEAN CORPUSCULAR VOLUME 88.9 fl (80.0-96.0); PLATELET COUNT, AUTOMATED 210 10^3/uL (150-450); RED BLOOD COUNT 3.07 10^6/uL (4.00-5.40); WHITE BLOOD COUNT 7.4 10^3/uL (4.0-10.0)
[2020-04-30 06:15] LABS: BLOOD UREA NITROGEN 22 MG/DL (7-18); CALCIUM LEVEL 8.3 MG/DL (8.8-10.2); CARBON DIOXIDE LEVEL 27 MEQ/L (21-32); CHLORIDE LEVEL 107 MEQ/L (98-107); CREATININE FOR GFR 0.52 MG/DL (0.55-1.30); GLOMERULAR FILTRATION RATE > 60.0 (>45); GLUCOSE, FASTING 186 MG/DL (70-100); POTASSIUM SERUM 3.7 MEQ/L (3.5-5.1); SODIUM LEVEL 139 MEQ/L (136-145)
[2020-04-30] MEDS: LEVOTHYROXINE 75MCG TABLET (0.075MG) PO SCH (06:23)
[2020-04-30] MEDS: ADVAIR HFA 230/21MCG INHALER INH SCH ×2 (07:50→20:27)
[2020-04-30] MEDS: DOXYCYCLINE HYCLATE 100MG TABLET PO SCH ×2 (08:35→21:19)
[2020-04-30] MEDS: CYCLOBENZAPRINE 5MG TABLET PO SCH ×3 (08:35→21:19)
[2020-04-30] MEDS: HumaLOG INSULIN (NovoLOG) PER UNIT SC SCH ×4 (08:35→21:00)
[2020-04-30] MEDS: FOLIC ACID 1 MG TAB PO SCH (08:35)
[2020-04-30] MEDS: CYCLOBENZAPRINE 10MG TABLET PO SCH ×3 (08:35→21:19)
[2020-04-30] MEDS: POTASSIUM CHLORIDE 10 MEQ SR TABLET PO SCH (08:35)
[2020-04-30] MEDS: PANTOPRAZOLE 40MG TAB (PROTONIX) PO SCH (08:35)
[2020-04-30] MEDS: BACLOFEN 10 MG TAB PO SCH ×3 (08:35→21:19)
[2020-04-30] MEDS: ESCITALOPRAM OXALATE 10 MG TAB (LEXAPRO) PO SCH (08:36)
[2020-04-30] MEDS: GABAPENTIN 400MG CAP PO SCH ×3 (08:36→21:19)
[2020-04-30] MEDS: DOCUSATE SODIUM 100MG CAPSULE PO SCH ×2 (08:36→21:19)
[2020-04-30] MEDS: DULoxetine 30 MG CAP (CYMBALTA) PO SCH ×2 (08:36→21:19)
[2020-04-30] MEDS: INDAPAMIDE 1.25MG TABLET PO SCH (08:37)
--- NOTE | 2020-04-30 11:45 | IPNPDOC ---
Subjective Date Seen The patient was seen on 04/30/20. Subjective Chief Complaint/HPI Mrs. Jiang is a 64 year old female with asthma and anxiety who presents with persistent nose bleed. Yesterday evening, she has a panic attack. She had trouble breathing through one nostril. Saturations drop as low as 70, but this may have been due to the nail egyptian on her finger. Lung sounds were clear, and CXR demonstrate no acute disease. We were able to calm her with Ativan and telling her to take deep breaths. Overnight, she did better. NO panic attacks. This morning, breathing is better. Hemoglobin dropped from 10.4 to 8.7. Could be that the blood is still equilibrating after transfusion, but will monitor CBC today. . Objective Physical Examination General Exam: Positive: Alert, Cooperative Eye Exam: Positive: EOMI; Negative: Sclera icteric ENT Exam: Positive: Other ENT (Right nostril packed) Neck Exam: Positive: Supple Chest Exam: Positive: Clear to auscultation, Diminished Heart Exam: Positive: Rate Normal, Regular Rhythm Abdomen Exam: Positive: Normal bowel sounds, Soft; Negative: Tenderness Extremity Exam: Positive: Edema (mild) Neuro Exam: Positive: Cranial Nerves 3-12 NL Psych Exam: Positive: Anxiety (very anxious) Assessment /Plan Assessment Mrs. Jiang is a 64 year old female with asthma and anxiety who presents with persistent nose bleed. ENT cauterized and packed the right nostril. Patient to be on antibiotics while packing is in placed. Plan to see ENT outpatient on Tuesday for removal. Otherwise received 2u pRBC. Yesterday, she had a panic attack because she could only breath through one nostril. She was able to calm down and continues to do well at room air. H&H low this morning. Will follow CBC throughout day. Plan/VTE VTE Prophylaxis Ordered?: Yes Plan 1. Blood loss anemia from epistaxis -Controlled by ENT with cauterization and packing of right nostril -Keep packing in place until Tuesday. See outpatient for removal -Continue doxycycline until removal -Received 2u pRBC -Monitor CBC 2. Asthma -Has panic attacks where she feels short of breath, but she is saturating well -Continue inhalers 3. Hypothyroidism -Continue levothyroxine 4. Chronic pain syndrome -Continue with pain regimen 5. Anxiety/Panic attack -Continue duloxetine, escitalopram, and amitriptyline -Can use Ativan for panic attacks 6. Hypertension -Continue Indapamide 7. GERD -Continue pantoprazole 8. DVT ppx -No chemical ppx due to epistaxis. SCD and TEDs Disposition: Pending on H&H stability. VS, I&O, 24H, Fishbone Vital Signs/I&O Vital Signs Date Time Temp Pulse Resp B/P (MAP) Pulse Ox O2 Delivery O2 Flow Rate FiO2 04/30/20 06:00 98.7 82 20 138/79 (98) 100 Non-Rebreather 04/29/20 11:46 04/29/20 06:30 100 I&O- Last 24 Hours up to 6 AM 04/30/20 06:00 Intake Total 2560 ml Balance 2560 ml Laboratory Data 24H LABS Laboratory Tests 2 04/29/20 16:11: Nucleated Red Blood Cells % (auto) 0.0 04/29/20 17:23: Lactic Acid Level 1.9 04/29/20 17:38: Bedside Glucose (Misc Panel) 145H 04/29/20 21:22: Bedside Glucose (Misc Panel) 154H 04/30/20 05:30: Nucleated Red Blood Cells % (auto) 0.0, Anion Gap 5L, Glomerular Filtration Rate > 60.0, Calcium Level 8.3L CBC/BMP Laboratory Tests 04/29/20 16:11 04/30/20 05:30 Microbiology Microbiology 04/29/20 Respiratory Virus Panel (PCR) ([facility]) - Final, Complete APRYL CRAWFORD DO Apr 30, 2020 11:45
[2020-04-30 12:30] LABS: HEMATOCRIT 24.3 % (36.0-47.0); HEMOGLOBIN 7.8 g/dl (12.0-15.5); MEAN CORPUSCULAR HEMOGLOBIN 28.7 pg (27.0-33.0); MEAN CORPUSCULAR HGB CONC 32.1 g/dl (32.0-36.5); MEAN CORPUSCULAR VOLUME 89.3 fl (80.0-96.0); PLATELET COUNT, AUTOMATED 198 10^3/uL (150-450); RED BLOOD COUNT 2.72 10^6/uL (4.00-5.40); WHITE BLOOD COUNT 8.1 10^3/uL (4.0-10.0)
[2020-04-30] MEDS ORDERED: NS 1,000 ML IV SCH (13:26)
[2020-04-30] MEDS: ACETAMINOPHEN TAB 650MG DOSE (2X325MG) PO PRN ×2 (17:27→22:22)
[2020-04-30] MEDS: TAMSULOSIN 0.4 MG CAP PO SCH (21:19)
[2020-04-30] MEDS: AMITRIPTYLINE 25MG TABLET PO SCH (21:19)
[2020-04-30] MEDS: RAMELTEON 8 MG TAB (ROZEREM) PO SCH (21:19)
[2020-04-30] MEDS: OLANZapine 5 MG TAB PO PRN (21:19)
[2020-05-01 00:20] LABS: HEMATOCRIT 29.7 % (36.0-47.0); HEMOGLOBIN 9.5 g/dl (12.0-15.5); MEAN CORPUSCULAR HEMOGLOBIN 28.5 pg (27.0-33.0); MEAN CORPUSCULAR VOLUME 89.2 fl (80.0-96.0); PLATELET COUNT, AUTOMATED 182 10^3/uL (150-450); RED BLOOD COUNT 3.33 10^6/uL (4.00-5.40); WHITE BLOOD COUNT 8.8 10^3/uL (4.0-10.0)
[2020-05-01] MEDS: LEVOTHYROXINE 75MCG TABLET (0.075MG) PO SCH (05:32)
[2020-05-01 06:00] VITALS: BP 129/78
[2020-05-01 06:55] LABS: HEMATOCRIT 32.4 % (36.0-47.0); HEMOGLOBIN 10.4 g/dl (12.0-15.5); MEAN CORPUSCULAR HEMOGLOBIN 29.1 pg (27.0-33.0); MEAN CORPUSCULAR HGB CONC 32.1 g/dl (32.0-36.5); MEAN CORPUSCULAR VOLUME 90.8 fl (80.0-96.0); PLATELET COUNT, AUTOMATED 190 10^3/uL (150-450); RED BLOOD COUNT 3.57 10^6/uL (4.00-5.40); WHITE BLOOD COUNT 7.2 10^3/uL (4.0-10.0)
[2020-05-01 07:22] LABS: BLOOD UREA NITROGEN 16 MG/DL (7-18); CALCIUM LEVEL 8.9 MG/DL (8.8-10.2); CARBON DIOXIDE LEVEL 30 MEQ/L (21-32); CHLORIDE LEVEL 106 MEQ/L (98-107); GLOMERULAR FILTRATION RATE > 60.0 (>45); GLUCOSE, FASTING 178 MG/DL (70-100); POTASSIUM SERUM 3.7 MEQ/L (3.5-5.1); SODIUM LEVEL 140 MEQ/L (136-145)
[2020-05-01] MEDS: PANTOPRAZOLE 40MG TAB (PROTONIX) PO SCH (08:23)
[2020-05-01] MEDS: OLANZapine 5 MG TAB PO PRN (08:23)
[2020-05-01] MEDS: ESCITALOPRAM OXALATE 10 MG TAB (LEXAPRO) PO SCH (08:23)
[2020-05-01] MEDS: CYCLOBENZAPRINE 5MG TABLET PO SCH ×3 (08:23→21:49)
[2020-05-01] MEDS: DULoxetine 30 MG CAP (CYMBALTA) PO SCH ×2 (08:23→21:48)
[2020-05-01] MEDS: GABAPENTIN 400MG CAP PO SCH ×3 (08:23→21:49)
[2020-05-01] MEDS: DOXYCYCLINE HYCLATE 100MG TABLET PO SCH ×2 (08:23→21:49)
[2020-05-01] MEDS: FOLIC ACID 1 MG TAB PO SCH (08:23)
[2020-05-01] MEDS: BACLOFEN 10 MG TAB PO SCH ×3 (08:23→21:50)
[2020-05-01] MEDS: CYCLOBENZAPRINE 10MG TABLET PO SCH ×3 (08:23→21:49)
[2020-05-01] MEDS: INDAPAMIDE 1.25MG TABLET PO SCH (08:24)
[2020-05-01] MEDS: POTASSIUM CHLORIDE 10 MEQ SR TABLET PO SCH (08:24)
[2020-05-01] MEDS: ACETAMINOPHEN TAB 650MG DOSE (2X325MG) PO PRN ×2 (08:24→18:30)
[2020-05-01] MEDS: DOCUSATE SODIUM 100MG CAPSULE PO SCH ×2 (08:25→21:49)
[2020-05-01] MEDS: HumaLOG INSULIN (NovoLOG) PER UNIT SC SCH ×4 (08:25→21:00)
[2020-05-01] MEDS: ADVAIR HFA 230/21MCG INHALER INH SCH ×2 (08:28→19:46)
[2020-05-01] MEDS ORDERED: ISOVUE-370 76% 100ML VIAL As Ordered ONE (09:42)
--- NOTE | 2020-05-01 11:03 | REP ---
INDICATION: Intra-abdominal bleed? problems with prolapsed organs. COMPARISON: 12/10/2019 TECHNIQUE: CT abdomen and pelvis performed without IV contrast. CT abdomen pelvis performed with IV contrast as well, following intravenous administration of 100 cc of Isovue 370. Sagittal, coronal reconstruction images are performed. FINDINGS: Lung bases: Minor dependent atelectatic changes posteriorly in the lower lung zones right greater than left. Abdominal aorta: No aneurysm or dissection. No periaortic fluid or adenopathy. Liver: There is hepatomegaly with the right lobe 21 cm in vertical diameter. Previous CT 19.7 cm. No discrete hepatic mass. There is no fatty infiltration of the liver on the precontrast images no biliary dilatation nor adjacent ascites. Gallbladder surgically absent. No calcification seen in the common duct within the buster hepatis are to the pancreatic head. Gallbladder: Prior cholecystectomy, common duct without calcifications within the buster hepatis to the pancreatic head. Spleen: Normal. Adrenals: Normal. Pancreas: Pancreas shows no mass, or peripancreatic fluid/adenopathy, pancreatic ductal dilatation or calcification. Kidneys: There are small cortical cysts bilaterally, unchanged. No stone, solid mass, hydronephrosis or perinephric fluid. Small and large bowel: Fluid-filled small bowel loops without dilatation air-fluid levels or wall thickening. No mesenteric edema. Stool and gas scattered in the right transverse colon and left colon largely collapsed. No colitis or diverticulitis in the abdomen proper. Distal left colon and sigmoid into the pelvis and rectum grossly unremarkable. Cecum is normal. No perforation or free air. Free fluid: No ascites, retroperitoneal hematoma or other abnormal fluid collections. Adenopathy: No abdominal, pelvic or inguinal adenopathy. Appendix: Not seen. No inflammatory changes about the cecum. Osseous structures: Degenerative disc changes at L5-S1 marginal osteophytes throughout the lower thoracic spine and facet arthropathy lower lumbar spine. No compression deformity or destructive lesion. The ribs, sacrum pelvis and hips are without acute finding. There has been a previous ORIF of the subtrochanteric right femur. Pelvis: Bladder well filled without mass, stone or wall thickening no distal ureteral dilatation or stone. Uterus absent with the vaginal cuff intact. No ventral or inguinal hernia nor pathologic sized inguinal adenopathy. IMPRESSION: 1. Prior cholecystectomy. Few renal cysts. No adenopathy, ascites, retroperitoneal hematoma a perforation or free air. Hepatomegaly without focal lesion. 2. Prior hysterectomy. No pelvic mass or free fluid. Mesentery unremarkable. Small bowel loops and colon grossly intact. No ventral or inguinal hernia. Nothing acute. 3. Density in the bladder on the previous CT is completely resolved, it likely represented o'clock/hemorrhage. <Electronically signed by Suresh Nails > 05/01/20 [id number]
[2020-05-01 13:06] LABS: HEMOGLOBIN 9.2 g/dl (12.0-15.5); MEAN CORPUSCULAR HEMOGLOBIN 29.4 pg (27.0-33.0); MEAN CORPUSCULAR HGB CONC 32.9 g/dl (32.0-36.5); MEAN CORPUSCULAR VOLUME 89.5 fl (80.0-96.0); PLATELET COUNT, AUTOMATED 183 10^3/uL (150-450); RED BLOOD COUNT 3.13 10^6/uL (4.00-5.40)
[2020-05-01 14:00] VITALS: BP 116/78
--- NOTE | 2020-05-01 14:04 | IPNPDOC ---
Subjective Date Seen The patient was seen on 05/01/20. Subjective Chief Complaint/HPI Mrs. Jiang is a 64 year old female with asthma and anxiety who presents with persistent nose bleed. Yesterday, H&H continued to drop. Transfused another 2u pRBC. Reached out to Gen. surgery, Dr. Giron, yesterday. Since the patient was stable, recommended conservative measures at this time. This morning, hemoglobin responded to blood transfusions. Patient reported having blood clots in her bladder in the past and prolapsed organs. Otherwise this morning he denied any chest pain or dyspnea. Objective Physical Examination General Exam: Positive: Alert, Cooperative Eye Exam: Positive: EOMI; Negative: Sclera icteric ENT Exam: Positive: Other ENT (Right nostril packed) Neck Exam: Positive: Supple Chest Exam: Positive: Clear to auscultation, Diminished Heart Exam: Positive: Rate Normal, Regular Rhythm Abdomen Exam: Positive: Normal bowel sounds, Soft; Negative: Tenderness Extremity Exam: Positive: Edema (mild) Neuro Exam: Positive: Cranial Nerves 3-12 NL Psych Exam: Positive: Anxiety (very anxious) Assessment /Plan Assessment Mrs. Jiang is a 64 year old female with asthma and anxiety who presents with persistent nose bleed. ENT cauterized and packed the right nostril. Patient to be on antibiotics while packing is in placed. Plan to see ENT outpatient on Tuesday for removal. Otherwise received 2u pRBC. H&H continued to drop and patient received another 2u pRBC. Interestingly, BUN has returned to normal. Would expect BUN to be elevated with an upper GI bleed. Continue trending CBCs today. May want to consider a colonoscopy if H&H continues to drop. Plan/VTE VTE Prophylaxis Ordered?: Yes Plan 1. Epistaxis -Controlled by ENT with cauterization and packing of right nostril -Keep packing in place until Tuesday. See outpatient for removal -Continue doxycycline until removal -Received 2u pRBC +2u pRBC -Monitor CBC 2. Blood loss anemia Unknown etiology If upper GI bleed, would expect an elevated BUN Patient has received 4u pRBC. Iron studies would be skewed Trend CBC and transfuse as needed May need to consider a colonoscopy if blood loss continues 3. Hypothyroidism -Continue levothyroxine 4. Chronic pain syndrome -Continue with pain regimen 5. Anxiety/Panic attack -Continue duloxetine, escitalopram, and amitriptyline -Can use Ativan for panic attacks 6. Hypertension -Continue Indapamide 7. GERD -Continue pantoprazole 8. Asthma -Has panic attacks where she feels short of breath, but she is saturating well -Continue inhalers 9. DVT ppx -No chemical ppx due to epistaxis. SCD and TEDs VS, I&O, 24H, Fishbone Vital Signs/I&O Vital Signs Date Time Temp Pulse Resp B/P (MAP) Pulse Ox O2 Delivery O2 Flow Rate FiO2 05/01/20 06:00 97.4 80 19 129/78 (95) 95 Room Air 04/29/20 11:46 04/29/20 06:30 100 I&O- Last 24 Hours up to 6 AM 05/01/20 06:00 Intake Total 3130 ml Balance 3130 ml Laboratory Data 24H LABS Laboratory Tests 2 04/30/20 17:04: Bedside Glucose (Misc Panel) 219H 04/30/20 20:51: Bedside Glucose (Misc Panel) 139H 04/30/20 23:49: Nucleated Red Blood Cells % (auto) 0.0 05/01/20 05:56: Bedside Glucose (Misc Panel) 149H 05/01/20 06:17: Nucleated Red Blood Cells % (auto) 0.0, Anion Gap 4L, Glomerular Filtration Rate > 60.0, Calcium Level 8.9 05/01/20 11:59: Bedside Glucose (Misc Panel) 193H 05/01/20 12:50: Nucleated Red Blood Cells % (auto) 0.0 CBC/BMP Laboratory Tests 04/30/20 23:49 05/01/20 06:17 05/01/20 12:50 Microbiology Microbiology 04/29/20 Respiratory Virus Panel (PCR) ([facility]) - Final, Complete APRYL CRAWFORD DO May 01, 2020 14:04
[2020-05-01] MEDS: NYSTATIN 100,000 UNITS/GM TOPICAL PWD 15 GM TOP SCH ×2 (15:07→21:51)
[2020-05-01 18:06] LABS: HEMATOCRIT 28.9 % (36.0-47.0); HEMOGLOBIN 9.5 g/dl (12.0-15.5); MEAN CORPUSCULAR HEMOGLOBIN 28.8 pg (27.0-33.0); MEAN CORPUSCULAR HGB CONC 32.9 g/dl (32.0-36.5); MEAN CORPUSCULAR VOLUME 87.6 fl (80.0-96.0); PLATELET COUNT, AUTOMATED 203 10^3/uL (150-450); WHITE BLOOD COUNT 6.9 10^3/uL (4.0-10.0)
[2020-05-01] MEDS: TAMSULOSIN 0.4 MG CAP PO SCH (21:00)
[2020-05-01] MEDS: AMITRIPTYLINE 25MG TABLET PO SCH (21:49)
[2020-05-01] MEDS: RAMELTEON 8 MG TAB (ROZEREM) PO SCH (21:49)
[2020-05-01 22:00] VITALS: BP 109/74
[2020-05-02] MEDS: ACETAMINOPHEN TAB 650MG DOSE (2X325MG) PO PRN ×2 (00:04→05:20)
[2020-05-02 00:34] LABS: HEMATOCRIT 27.8 % (36.0-47.0); MEAN CORPUSCULAR HEMOGLOBIN 28.6 pg (27.0-33.0); MEAN CORPUSCULAR HGB CONC 32.4 g/dl (32.0-36.5); MEAN CORPUSCULAR VOLUME 88.3 fl (80.0-96.0); PLATELET COUNT, AUTOMATED 192 10^3/uL (150-450); RED BLOOD COUNT 3.15 10^6/uL (4.00-5.40); WHITE BLOOD COUNT 7.4 10^3/uL (4.0-10.0)
[2020-05-02] MEDS: LEVOTHYROXINE 75MCG TABLET (0.075MG) PO SCH (05:14)
[2020-05-02 06:00] VITALS: BP 105/59
[2020-05-02 07:49] LABS: HEMATOCRIT 28.6 % (36.0-47.0); HEMOGLOBIN 9.4 g/dl (12.0-15.5); MEAN CORPUSCULAR HEMOGLOBIN 29.3 pg (27.0-33.0); MEAN CORPUSCULAR HGB CONC 32.9 g/dl (32.0-36.5); MEAN CORPUSCULAR VOLUME 89.1 fl (80.0-96.0); PLATELET COUNT, AUTOMATED 205 10^3/uL (150-450); RED BLOOD COUNT 3.21 10^6/uL (4.00-5.40); WHITE BLOOD COUNT 6.7 10^3/uL (4.0-10.0)
[2020-05-02] MEDS: ADVAIR HFA 230/21MCG INHALER INH SCH (08:10)
[2020-05-02 08:12] LABS: BLOOD UREA NITROGEN 16 MG/DL (7-18); CALCIUM LEVEL 8.5 MG/DL (8.8-10.2); CARBON DIOXIDE LEVEL 27 MEQ/L (21-32); CHLORIDE LEVEL 106 MEQ/L (98-107); CREATININE FOR GFR 0.62 MG/DL (0.55-1.30); GLOMERULAR FILTRATION RATE > 60.0 (>45); GLUCOSE, FASTING 168 MG/DL (70-100); POTASSIUM SERUM 3.7 MEQ/L (3.5-5.1); SODIUM LEVEL 140 MEQ/L (136-145)
[2020-05-02] MEDS: HumaLOG INSULIN (NovoLOG) PER UNIT SC SCH ×3 (08:19→16:35)
[2020-05-02] MEDS: PANTOPRAZOLE 40MG TAB (PROTONIX) PO SCH (08:19)
[2020-05-02] MEDS: GABAPENTIN 400MG CAP PO SCH ×2 (08:19→15:50)
[2020-05-02] MEDS: DOXYCYCLINE HYCLATE 100MG TABLET PO SCH (08:20)
[2020-05-02] MEDS: BACLOFEN 10 MG TAB PO SCH ×2 (08:20→12:26)
[2020-05-02] MEDS: CYCLOBENZAPRINE 5MG TABLET PO SCH ×2 (08:20→15:50)
[2020-05-02] MEDS: FOLIC ACID 1 MG TAB PO SCH (08:20)
[2020-05-02] MEDS: INDAPAMIDE 1.25MG TABLET PO SCH (08:20)
[2020-05-02] MEDS: DOCUSATE SODIUM 100MG CAPSULE PO SCH (08:20)
[2020-05-02] MEDS: DULoxetine 30 MG CAP (CYMBALTA) PO SCH (08:20)
[2020-05-02] MEDS: POTASSIUM CHLORIDE 10 MEQ SR TABLET PO SCH (08:21)
[2020-05-02] MEDS: ESCITALOPRAM OXALATE 10 MG TAB (LEXAPRO) PO SCH (08:21)
[2020-05-02] MEDS: CYCLOBENZAPRINE 10MG TABLET PO SCH ×2 (08:21→15:50)
[2020-05-02] MEDS: OLANZapine 5 MG TAB PO PRN (08:21)
[2020-05-02] MEDS: NYSTATIN 100,000 UNITS/GM TOPICAL PWD 15 GM TOP SCH (08:22)
--- NOTE | 2020-05-02 10:55 | REPVR ---
PROCEDURE INFORMATION: Exam: CT Head Without Contrast Exam date and time: 05/02/2020 10:45 AM Age: 64 years old Clinical indication: Pain; Headache; Additional info: Headache, ich? TECHNIQUE: Imaging protocol: Computed tomography of the head without contrast. Radiation optimization: All CT scans at this facility use at least one of these dose optimization techniques: automated exposure control; mA and/or kV adjustment per patient size (includes targeted exams where dose is matched to clinical indication); or iterative reconstruction. COMPARISON: CT Head without contrast 03/21/2018 3:04 PM FINDINGS: Brain: Normal. No hemorrhage. Unremarkable white matter. No mass effect. Cerebral ventricles: No ventriculomegaly. Bones/joints: Unremarkable. No acute fracture. Paranasal sinuses: Mild mucosal thickening of the right ethmoidal air cells. Mastoid air cells: Visualized mastoid air cells are well aerated. Soft tissues: Unremarkable. IMPRESSION: No acute intracranial abnormality. Mild mucosal thickening of the right ethmoidal air cells. Electronically signed by: Charlene Henry On 05/02/2020 10:56:16 AM
[2020-05-02 13:09] LABS: HEMATOCRIT 33.7 % (36.0-47.0); HEMOGLOBIN 10.7 g/dl (12.0-15.5); MEAN CORPUSCULAR HEMOGLOBIN 29.6 pg (27.0-33.0); MEAN CORPUSCULAR HGB CONC 31.8 g/dl (32.0-36.5); MEAN CORPUSCULAR VOLUME 93.4 fl (80.0-96.0); PLATELET COUNT, AUTOMATED 217 10^3/uL (150-450); RED BLOOD COUNT 3.61 10^6/uL (4.00-5.40); WHITE BLOOD COUNT 6.1 10^3/uL (4.0-10.0)
--- NOTE | 2020-05-02 13:21 | IPNPDOC ---
Subjective Date Seen The patient was seen on 05/02/20. HD #3 right nasal packing for control of epistaxis. Subjective Chief Complaint/HPI No bleeding since packing placed. Patient is on D#3 of doxycycline for prophylaxis.She has no other ENT concerns. Events since last encounter CT head was performed today, shows mild right anterior ethmoid mucosal thickening. General: Denies: ROS Unobtainable, Chills, Night Sweats, Fatigue, Malaise, Normal Appetite, Other Symptoms Constitutional: Denies: Chills, Fever, Malaise, Night Sweats, Weakness, Fatigue, Weight Loss, Lethargy, Other Eyes: Denies: Pain, Vision change ENT: Reports: Other Symptoms (nasal congestion, no bleeding) Skin: Denies: Rash, Lesions, Breakdown Objective Physical Examination General Exam: Positive: Alert, Cooperative Eye Exam: Positive: EOMI; Negative: Sclera icteric ENT Exam: Positive: Atraumatic, Mucous membr. moist/pink, Pharynx Normal, Tongue Midline, Other ENT (nasal packing removed, small anterior septum bleeder cauterized with silver nitrate, dissolvable nasopore coated with ointment inserted right nare) Neck Exam: Positive: Supple; Negative: JVD, thyromegaly Chest Exam: Positive: Clear to auscultation, Diminished; Negative: Normal air movement, Rales, Rhonchi, Wheezing, Other Heart Exam: Positive: Rate Normal, Regular Rhythm; Negative: Tachycardic, Bradycardic, Irregular Rhythm, Normal S1, Normal S2, Gallops, Murmurs, Rubs, Other Telemetry: Negative: No significant arrhythmia, Sinus, Atrial fibrillation, Tachycardia, Bradycardia, AV Block, Pause, SV Tach, PVCs, PACs, Asystole, Other Telemetry: Abdomen Exam: Positive: Normal bowel sounds, BS Hyperactive, BS Hypoactive, Soft, Hepatospenomegaly, Mass, Hernia, Other; Negative: Tenderness Female Exam: Positive: Nl Ext Genitalia, Normal Cervical Exam; Negative: Lesions, Discharge, Odor, Tenderness, Nl Rectal Sphincter Tone Extremity Exam: Positive: Normal pulses; Negative: Clubbing, Cyanosis, Edema Skin Exam: Positive: Nl turgor and temperature; Negative: Rash, Breakdown Neuro Exam: Negative: Normal Gait, Normal Speech, Strength at 5/5 X4 ext, Normal Tone, Sensation Intact, Reflexes 2+, Other Psych Exam: Positive: Mental status NL, Mood NL, Anxiety (very anxious), Memory Intact, Oriented x 3, Other Assessment /Plan Assessment epistaxis Problems (1) Epistaxis Status: Resolved Response to Treatment: Controlled Problem Specific Plan: Monitor Clinically Plan/VTE VTE Prophylaxis Ordered?: Yes Plan Dissolvable nasopore inserted, should dissolve in 10 days. Continue Doxycycline for 10 days. Nasal saline spray only prn. Disposition stable. follow up prn. VS, I&O, 24H, Fishbone Vital Signs/I&O Vital Signs Date Time Temp Pulse Resp B/P (MAP) Pulse Ox O2 Delivery O2 Flow Rate FiO2 05/02/20 06:00 97.9 79 20 105/59 (74) 94 Room Air 04/29/20 11:46 04/29/20 06:30 100 I&O- Last 24 Hours up to 6 AM 05/02/20 06:00 Intake Total 1780 ml Balance 1780 ml Laboratory Data 24H LABS Laboratory Tests 2 05/01/20 12:50: Nucleated Red Blood Cells % (auto) 0.0 05/01/20 17:12: Bedside Glucose (Misc Panel) 167H 05/01/20 17:51: Nucleated Red Blood Cells % (auto) 0.0 05/01/20 21:16: Bedside Glucose (Misc Panel) 195H 05/01/20 23:54: Nucleated Red Blood Cells % (auto) 0.0 05/02/20 05:59: Bedside Glucose (Misc Panel) 154H 05/02/20 07:26: Nucleated Red Blood Cells % (auto) 0.0, Anion Gap 7L, Glomerular Filtration Rate > 60.0, Calcium Level 8.5L 05/02/20 11:18: Bedside Glucose (Misc Panel) 217H CBC/BMP Laboratory Tests 05/01/20 12:50 05/01/20 17:51 05/01/20 23:54 05/02/20 07:26 Microbiology Microbiology 04/29/20 Respiratory Virus Panel (PCR) ([facility]) - Final, Complete ZACH JENKINS MD May 02, 2020 12:55
[2020-05-02 14:00] VITALS: BP 109/77
[2020-05-02] MEDS ORDERED: NYST10006 TOP (15:20)
[2020-05-02] MEDS ORDERED: DOXY100T PO (15:20)
--- NOTE | 2020-05-02 21:10 | DS.PDOC ---
Discharge Summary General Date of Admission Apr 30, 2020 at 13:10 Date of Discharge May 02, 2020 Attending Physician: APRYL CRAWFORD DO Specialist/Consultants Involve ENTDr. Pemberton Discharge Summary PROCEDURES PERFORMED DURING STAY: Nasal endoscopy, flexible laryngoscopy, nasal cauterization and packing by ENT, Dr. Lizzeth Pemberton ADMITTING DIAGNOSES: 1. Acute blood loss anemia 2/2 epistaxis vs upper GI bleed 2. Lactic acidosis 3. Asthma 4. Hypothyroidism 5. Chronic pain syndrome 6. Anxiety 7. Panic attack 8. Hypertension 9. GERD DISCHARGE DIAGNOSES: 1. Acute blood loss anemia 2/2 most likely due to epistaxis 2. Lactic acidosis 3. Asthma 4. Hypothyroidism 5. Chronic pain syndrome 6. Anxiety 7. Panic attack 8. Hypertension 9. GERD COMPLICATIONS/CHIEF COMPLAINT: Epistaxis. HISTORY OF PRESENT ILLNESS: Mrs. Jiang is a 64 year old female with asthma and anxiety who presents with persistent nose bleed. Yesterday, she was in her normal state of health. She started to have a nose bleed that would come and go. Denies trauma or falls. She had nose bleeds as a child and thought it would go away on its own. The nose bleed became continuous and she had dyspnea, abdominal pain, coughed up blood, and had coffee ground emesis. EMS brought her into the ED. She denied any fever, chest pain, or lightheadedness. Blood pressure remained stable. Hemoglobin was low at 7.7. The ED was unsure of bleed was from nose or upper GI and started the patient on IV Protonix. ED was not able to stop the nose bleed and ENTDr. Pemberton was called in. He cauterized the right anterior septum and placed an epistat balloon into the right nostril to stop the bleed. Recommended leaving the packing there until Tuesday when he can see her in the office to remove it. Also recommended to be on antibiotics while the packing is in her nose. Otherwise, she was given 2u of pRBC in the ED and she responded appropriately. Patient will be placed in observation for epistaxis requiring blood transfusion. HOSPITAL COURSE: She responded appropriately to the 2u of pRBC. That evening after admission, she had a panic attack. She had difficulty breathing with one nostril. After IV Ativan and redirection, she calmed down. Her H&H was trended, and had started to down trend back to 7.8. She was given another 2u of pRBC. She was not bleeding from her nose and could not find another source. Unclear why her H&H dropped the second time and could not order anemia work up since patient had already received blood urgently in the ED. Ordered a CT abd/pelvis to look for intraperitoneal bleed. No bleeding intraperitoneal, but the opacity in the bladder had disappeared. Patient told me she had 40 clots in her bladder that had to be removed in the past. The following day, her H&H remained stable and started to trend upwards to 10.7. Spoke to general surgery about scope. Since patient was stable, general surgery did not see an urgent need for scope and recommended outpatient scope. ENT came in on 05/02/2020 and removed nasal packing. ENT placed a dissolvable packing and recommended that she stay on antibiotics for another 10 days. I discussed this with the patient. I also recommended that since she was stable to have scopes outpatient, she may be able to do her scopes with GI. She was agreeable and was discharged later in the day. DISCHARGE MEDICATIONS: Please see below. ALLERGIES: Please see below. PHYSICAL EXAMINATION ON DISCHARGE: VITAL SIGNS: Please see below. GENERAL: Comfortable, in no apparent distress HEENT: New right nasal packing. Dried blood around area. NECK: Supple CARDIOVASCULAR EXAMINATION: Regular rate and rhythm RESPIRATORY EXAMINATION: Lungs clear to auscultation bilaterally ABDOMINAL EXAMINATION: Soft, non-tender, normal bowel sounds EXTREMITIES: No pitting edema bilaterally SKIN: Warm and dry NEUROLOGICAL EXAMINATION: CN 3-12 grossly intact PSYCHIATRIC EXAMINATION: Normal mood and affect LABORATORY DATA: Please see below. IMAGING: CT abd/pelvis 1. Prior cholecystectomy. Few renal cysts. No adenopathy, ascites, retroperitoneal hematoma a perforation or free air. Hepatomegaly without focal lesion. 2. Prior hysterectomy. No pelvic mass or free fluid. Mesentery unremarkable. Small bowel loops and colon grossly intact. No ventral or inguinal hernia. Nothing acute. 3. Density in the bladder on the previous CT is completely resolved, it likely represented o'clock/hemorrhage. CT head No acute intracranial abnormality. Mild mucosal thickening of the right ethmoidal air cells. PROGNOSIS: Good ACTIVITY: As tolerated. DIET: As tolerated DISCHARGE PLAN: Home DISPOSITION: Home, Self-Care. DISCHARGE INSTRUCTIONS: 1. Follow up with PCP as soon as possible to discuss possible referral to GI for scope 2. Follow up with ENT in 1 to 2 weeks 3. Continue antibiotics for 10 days. Dissolvable nasal packing should be gone in 10 days DISCHARGE CONDITION: Stable. Total time spent on discharge planning, discharge summary, and medication reconciliation: 55 minutes. Vital Signs/I&Os Vital Signs Date Time Temp Pulse Resp B/P (MAP) Pulse Ox O2 Delivery O2 Flow Rate FiO2 05/02/20 14:00 98.6 76 19 109/77 (88) 96 Room Air 04/29/20 11:46 04/29/20 06:30 100 I&O- Last 24 Hours up to 6 AM 05/02/20 06:00 Intake Total 1780 ml Balance 1780 ml Laboratory Data Labs 24H Laboratory Tests 2 05/01/20 21:16: Bedside Glucose (Misc Panel) 195H 05/01/20 23:54: Nucleated Red Blood Cells % (auto) 0.0 05/02/20 05:59: Bedside Glucose (Misc Panel) 154H 05/02/20 07:26: Nucleated Red Blood Cells % (auto) 0.0, Anion Gap 7L, Glomerular Filtration Rate > 60.0, Calcium Level 8.5L 05/02/20 11:18: Bedside Glucose (Misc Panel) 217H 05/02/20 12:42: Nucleated Red Blood Cells % (auto) 0.0 05/02/20 16:32: Bedside Glucose (Misc Panel) 104 CBC/BMP Laboratory Tests 05/01/20 23:54 05/02/20 07:26 05/02/20 12:42 FSBS Laboratory Tests Test 05/01/20 21:16 05/02/20 05:59 05/02/20 11:18 05/02/20 16:32 Range/Units Bedside Glucose (Misc Panel) 195 154 217 104 80-115 MG/DL Microbiology Microbiology 04/29/20 Respiratory Virus Panel (PCR) ([facility]) - Final, Complete Discharge Medications Scheduled Amitriptyline HCl (Amitriptyline HCl) 25 Mg Tablet, 25 MG PO QHS, (Reported) Aspirin (Aspirin) 81 Mg Tab.chew, 81 MG PO DAILY, (Reported) Baclofen (Baclofen) 10 Mg Tab, 10 MG PO BID, (Reported) 0800, 1200 Baclofen (Baclofen) 10 Mg Tablet, 20 MG PO QHS, (Reported) Cyclobenzaprine HCl (Cyclobenzaprine HCl) 10 Mg Tab, 10 MG PO TID, (Reported) 15MG TOTAL TID Cyclobenzaprine HCl (Cyclobenzaprine HCl) 5 Mg Tablet, 5 MG PO TID, (Reported) 15MG TOTAL TID Docusate Sodium (Colace) 100 Mg Cap, 200 MG PO BID, (Reported) 0800, 1200 Doxycycline Hyclate (Doxycycline Hyclate) 100 Mg Tablet, 100 MG PO BID Duloxetine Hcl (Cymbalta) 60 Mg Cap, 60 MG PO BID, (Reported) 0800, 1200 Ergocalciferol (Vitamin D2) (Vitamin D2) 50,000 Units Cap, 50,000 UNITS PO Q2WK, (Reported) TAKES ON TUESDAY Escitalopram Oxalate (Lexapro) 10 Mg Tab, 10 MG PO DAILY, (Reported) 1200 Esomeprazole Magnesium (Nexium) 20 Mg Cap, 40 MG PO DAILY, (Reported) Fluticasone/Vilanterol (Breo Ellipta 200-25 Mcg INH) 1 Each Blst.w.dev, 1 PUFF INH DAILY, (Reported) Folic Acid (Folic Acid) 1 Mg Tab, 1 MG PO DAILY, (Reported) 1200 Gabapentin (Gabapentin) 800 Mg Tab, 800 MG PO TID, (Reported) Glimepiride (Glimepiride) 2 Mg Tablet, 2 MG PO BID, (Reported) Indapamide (Indapamide) 2.5 Mg Tab, 2.5 MG PO DAILY, (Reported) 1200 Levothyroxine Sodium (Levothyroxine Sodium) 75 Mcg Tab, 75 MCG PO QAM, (Reported) Magnesium Oxide (Magnesium Oxide) 400 Mg Tablet, 400 MG PO BID, (Reported) Metformin HCl (Metformin HCl) 850 Mg Tab, 850 MG PO BID, (Reported) 0800, 1200 Nystatin (Nystop) 60 Gm Powder, 0 DOSE TOP BID Potassium Chloride (Potassium Chloride) 20 Meq Tab, 20 MEQ PO DAILY, (Reported) Ramelteon (Rozerem) 8 Mg Tab, 8 MG PO QHS, (Reported) Rosuvastatin Calcium (Rosuvastatin Calcium) 40 Mg Tab, 40 MG PO DAILY, (Reported) Sitagliptin Phosphate (Januvia) 100 Mg Tablet, 100 MG PO DAILY, (Reported) Tamsulosin HCl (Flomax) 0.4 Mg Capsule, 0.4 MG PO QPM, (Reported) Scheduled PRN Albuterol Sulfate (Albuterol Sulfate) 2.5 Mg/0.5 Ml Neb, 2.5 MG INH QID PRN for SHORTNESS OF BREATH, (Reported) Albuterol Sulfate (Proventil Hfa) 108 Mcg/Act Aer, 2 PUFF INH QID PRN for SHORTNESS OF BREATH, (Reported) Diclofenac Sodium (Voltaren) 1 % Gel, 4 GM TOP QID PRN for PAIN, (Reported) APPLY TO BOTH KNEES Sennosides (Senna Lax) 8.6 Mg Tablet, 17.2 MG PO QHS PRN for CONSTIPATION, (Reported) Allergies Coded Allergies: gatifloxacin (Verified Allergy, Unknown, 04/29/20) ITCHING, REDNESS rosuvastatin (Verified Allergy, Unknown, 04/29/20) MYALGIA simvastatin (Verified Allergy, Unknown, 04/29/20) MYALGIA Xanthines (Verified Adverse Reaction, Intermediate, severe headache, 04/29/20) Sulfa (Sulfonamide Antibiotics) (Verified Adverse Reaction, Unknown, 04/29/20) TRIGGERS ASTHMA lemon (Verified Adverse Reaction, Unknown, 04/29/20) TRIGGERS ASTHMA rofecoxib (Verified Adverse Reaction, Unknown, 04/29/20) BRUISING theophylline (Verified Adverse Reaction, Unknown, 04/29/20) HEADACHE APRYL CRAWFORD DO May 02, 2020 21:10
== END 2020-05-02 17:59 | disposition home or self-care (01) | DRG 115 ==
LOC: M ED 05:13 → M ED INP 05:14 → M MS5PR 12:35 → OBSVTOIN 04-30 13:10
PROVIDERS: ADMIT Internal Medicine; ATTEND Internal Medicine
PROC: 30233N1 Transfusion of Nonautologous Red Blood Cells into Peripheral Vein, Percutaneous Approach (ICD-10-PCS; principal; 2020-04-30)
PROC: 2Y41X5Z Packing of Nasal Region using Packing Material (ICD-10-PCS; 2020-04-30)
DX: R04.0 Epistaxis (principal); I11.0 Hypertensive heart disease with heart failure; I50.32 Chronic diastolic (congestive) heart failure; E87.2 Acidosis; D62 Acute posthemorrhagic anemia; K76.0 Fatty (change of) liver, not elsewhere classified; J45.909 Unspecified asthma, uncomplicated; F41.9 Anxiety disorder, unspecified; E11.9 Type 2 diabetes mellitus without complications; E03.9 Hypothyroidism, unspecified; E78.5 Hyperlipidemia, unspecified; F32.9 Major depressive disorder, single episode, unspecified; F40.01 Agoraphobia with panic disorder; M81.0 Age-related osteoporosis without current pathological fracture; E55.9 Vitamin D deficiency, unspecified; K21.9 Gastro-esophageal reflux disease without esophagitis; G25.0 Essential tremor; G89.4 Chronic pain syndrome; M17.0 Bilateral primary osteoarthritis of knee; G47.33 Obstructive sleep apnea (adult) (pediatric); Z86.711 Personal history of pulmonary embolism; Z86.14 Personal history of Methicillin resistant Staphylococcus aureus infection; Z96.652 Presence of left artificial knee joint; Z79.82 Long term (current) use of aspirin; Z79.84 Long term (current) use of oral hypoglycemic drugs; Z79.899 Other long term (current) drug therapy; Z88.2 Allergy status to sulfonamides; Z88.8 Allergy status to other drugs, medicaments and biological substances; Z91.018 Allergy to other foods

== ENCOUNTER → 2020-05-12 | Outpatient (REF) | payer OTHER ==
[~2020-05-12] MED LIST changes: +ASPI81CH48 PO; +DOXY100T PO; +FLOM0.4C39 PO; +NYST10006 TOP; -PEG1POW PO; +POLY17PO18 PO; +RA S8.6T3 PO
[2020-05-12 13:51] LABS: BASO # 0.1 10^3/uL (0.0-0.2); BASO % 0.8 % (0.0-1.0); EOS # 0.3 10^3/uL (0.0-0.5); EOS % 3.6 % (0.0-3.0); HEMATOCRIT 34.2 % (36.0-47.0); HEMOGLOBIN 10.6 g/dl (12.0-15.5); LYMPH # 2.9 10^3/uL (1.5-5.0); LYMPH % 31.8 % (24.0-44.0); MEAN CORPUSCULAR HEMOGLOBIN 28.4 pg (27.0-33.0); MEAN CORPUSCULAR VOLUME 91.7 fl (80.0-96.0); MONO # 0.6 10^3/uL (0.0-0.8); MONO % 6.5 % (2.0-8.0); NEUTROPHILS # 5.1 10^3/uL (1.5-8.5); NEUTROPHILS % 56.9 % (36.0-66.0); PLATELET COUNT, AUTOMATED 470 10^3/uL (150-450); RED BLOOD COUNT 3.73 10^6/uL (4.00-5.40)
[2020-05-12 14:02] LABS: INR 0.86; PARTIAL THROMBOPLASTIN TIME 29.4 SECONDS (24.2-38.5); PROTHROMBIN TIME 11.9 SECONDS (12.5-14.3)
[2020-05-12 14:35] LABS: ALBUMIN 3.4 GM/DL (3.2-5.2); ALT/SGPT 17 U/L (12-78); BILIRUBIN,TOTAL 0.6 MG/DL (0.2-1.0); BLOOD UREA NITROGEN 14 MG/DL (7-18); CARBON DIOXIDE LEVEL 31 MEQ/L (21-32); CHLORIDE LEVEL 103 MEQ/L (98-107); CREATININE FOR GFR 0.66 MG/DL (0.55-1.30); FERRITIN 5 NG/ML (8-252); GLOMERULAR FILTRATION RATE > 60.0 (>45); GLUCOSE, FASTING 112 MG/DL (70-100); IRON (FE) 29 UG/DL (50-170); POTASSIUM SERUM 4.7 MEQ/L (3.5-5.1); SODIUM LEVEL 138 MEQ/L (136-145); TOTAL PROTEIN 6.7 GM/DL (6.4-8.2)
[2020-05-12 14:42] LABS: MALB URINE SIEMENS 9.8 MG/L; MAU/CREAT RATIO 8.9 MCG/MG (0.0-30.0)
== END ==
LOC: M SFHCPLAZ 11:05
PROVIDERS: ATTEND Physician Assistant Medical
DX: D62 Acute posthemorrhagic anemia (principal); E11.9 Type 2 diabetes mellitus without complications

== ENCOUNTER → 2020-05-26 | Outpatient (REF) | payer OTHER ==
[2020-05-26 13:40] LABS: BASO # 0.1 10^3/uL (0.0-0.2); BASO % 0.8 % (0.0-1.0); EOS # 0.4 10^3/uL (0.0-0.5); EOS % 4.7 % (0.0-3.0); HEMATOCRIT 33.8 % (36.0-47.0); HEMOGLOBIN 10.8 g/dl (12.0-15.5); LYMPH # 2.5 10^3/uL (1.5-5.0); LYMPH % 32.1 % (24.0-44.0); MEAN CORPUSCULAR HEMOGLOBIN 28.7 pg (27.0-33.0); MEAN CORPUSCULAR VOLUME 89.9 fl (80.0-96.0); MONO # 0.5 10^3/uL (0.0-0.8); MONO % 6.1 % (2.0-8.0); NEUTROPHILS # 4.3 10^3/uL (1.5-8.5); NEUTROPHILS % 55.9 % (36.0-66.0); PLATELET COUNT, AUTOMATED 343 10^3/uL (150-450); RED BLOOD COUNT 3.76 10^6/uL (4.00-5.40); WHITE BLOOD COUNT 7.7 10^3/uL (4.0-10.0)
[2020-05-26 14:24] LABS: FREE T4 1.16 NG/DL (0.76-1.46); THYROID STIMULATING HORMONE 2.2 uIU/ML (0.358-3.740)
== END ==
LOC: M SFHCPLAZ 12:43
PROVIDERS: ATTEND Physician Assistant
DX: D62 Acute posthemorrhagic anemia (principal); K92.2 Gastrointestinal hemorrhage, unspecified; R53.83 Other fatigue; K59.00 Constipation, unspecified

== ENCOUNTER 2020-06-07 14:14 | Emergency (ER) | payer OTHER ==
[~2020-06-07] VITALS: Ht 167.6 cm; Wt 105.1 kg
--- NOTE | 2020-06-07 14:59 | REP ---
INDICATION: fall COMPARISON: 02/12/2019. TECHNIQUE: There are four views. FINDINGS: There is a healed fracture of the distal femoral shaft and distal metaphysis as an interval change. There is an intramedullary otis transfixed by 3 distal interlocking screws, also an interval change. There is no acute fracture or dislocation. There is no effusion/hemarthrosis. There are no lytic, blastic or destructive skeletal changes. There is advanced tricompartment osteoarthritis, unchanged. IMPRESSION: No acute fracture or dislocation. Old healed fracture and internal fixation as an interval change. Advanced tricompartment osteoarthritis, unchanged. No hemarthrosis/effusion. <Electronically signed by Mariano Mcghee > 06/07/20 [id number]
--- NOTE | 2020-06-07 15:09 | REPVR ---
PROCEDURE INFORMATION: Exam: CT Head Without Contrast Exam date and time: 06/07/2020 2:35 PM Age: 64 years old Clinical indication: Injury or trauma; Fall; Blunt trauma (contusions or hematomas); Additional info: Fall/hematoma TECHNIQUE: Imaging protocol: Computed tomography of the head without contrast. Radiation optimization: All CT scans at this facility use at least one of these dose optimization techniques: automated exposure control; mA and/or kV adjustment per patient size (includes targeted exams where dose is matched to clinical indication); or iterative reconstruction. COMPARISON: CT Head without contrast 05/02/2020 10:48 AM FINDINGS: Brain: No acute post-traumatic brain injury. Symmetric caliber of the cortical sulci. Basal ganglia calcification again demonstrated. Cerebral ventricles: Normal configuration of the ventricles. Bones/joints: No acute calvarial injury. Paranasal sinuses: No sinus fluid. Mastoid air cells: No mastoid effusion. Soft tissues: Frontal scalp hematoma. IMPRESSION: 1. Frontal scalp hematoma. 2. No acute post-traumatic brain injury. Electronically signed by: Lamonte May On 06/07/2020 15:09:48 PM
--- NOTE | 2020-06-07 15:12 | REPVR ---
PROCEDURE INFORMATION: Exam: CT Cervical Spine Without Contrast Exam date and time: 06/07/2020 2:35 PM Age: 64 years old Clinical indication: Injury or trauma; Fall; Blunt trauma; Additional info: Fall/hematoma TECHNIQUE: Imaging protocol: Computed tomography images of the cervical spine without contrast. Radiation optimization: All CT scans at this facility use at least one of these dose optimization techniques: automated exposure control; mA and/or kV adjustment per patient size (includes targeted exams where dose is matched to clinical indication); or iterative reconstruction. COMPARISON: CT Spine,cervical w/o contrast 03/21/2018 3:04 PM FINDINGS: Bones/joints: No acute bony injury or malalignment in the cervical spine. Diminished cervical lordosis. Discs/Spinal canal/Neural foramina: Multilevel degenerative change.Note that assessment of disc, spinal cord, and nerve root pathology is limited in the absence of intrathecal contrast. Sinuses: 1.5 cm right maxillary sinus retention cyst. Oropharynx: Tonsillar calcifications. Trachea: Tracheal calcification. Lungs: Unremarkable apices as visualized. Soft tissues: Unremarkable. IMPRESSION: No acute bony injury or malalignment in the cervical spine. Electronically signed by: Lamonte May On 06/07/2020 15:12:05 PM
[2020-06-07] MEDS ORDERED: CLEAPOW10 (15:14)
[2020-06-07] MEDS ORDERED: CELE1CAP9 (15:14)
--- NOTE | 2020-06-07 16:08 | REPVR ---
PROCEDURE INFORMATION: Exam: CT Maxillofacial Without Contrast Exam date and time: 06/07/2020 3:54 PM Age: 64 years old Clinical indication: Injury or trauma; Fall; Blunt trauma (contusions or hematomas); Nose TECHNIQUE: Imaging protocol: Computed tomography images of the face without contrast. Radiation optimization: All CT scans at this facility use at least one of these dose optimization techniques: automated exposure control; mA and/or kV adjustment per patient size (includes targeted exams where dose is matched to clinical indication); or iterative reconstruction. COMPARISON: No relevant prior studies available. FINDINGS: Orbital cavity: Globes are unremarkable. Bones/joints: No acute bony injury in the visulaized facial bones. Paranasal sinuses: 1.8 cm right maxillary sinus retention cyst. Soft tissues: Unremarkable. IMPRESSION: No acute bony injury in the visulaized facial bones. Electronically signed by: Lamonte May On 06/07/2020 16:08:58 PM
[2020-06-07 16:40] VITALS: BP 117/69
== END 2020-06-07 16:48 | disposition home or self-care (01) ==
LOC: M ED 14:14
DX: S00.03XA Contusion of scalp, initial encounter (principal); S00.83XA Contusion of other part of head, initial encounter; S80.01XA Contusion of right knee, initial encounter; M17.11 Unilateral primary osteoarthritis, right knee; W01.198A Fall on same level from slipping, tripping and stumbling with subsequent striking against other object, initial encounter; Y92.098 Other place in other non-institutional residence as the place of occurrence of the external cause; Y93.01 Activity, walking, marching and hiking; Y99.8 Other external cause status; Z99.89 Dependence on other enabling machines and devices; I11.0 Hypertensive heart disease with heart failure; I50.9 Heart failure, unspecified; J45.909 Unspecified asthma, uncomplicated; E03.9 Hypothyroidism, unspecified; K21.9 Gastro-esophageal reflux disease without esophagitis; E11.9 Type 2 diabetes mellitus without complications; G47.33 Obstructive sleep apnea (adult) (pediatric); E66.9 Obesity, unspecified; Z68.37 Body mass index [BMI] 37.0-37.9, adult; Z88.2 Allergy status to sulfonamides; Z88.1 Allergy status to other antibiotic agents; Z88.8 Allergy status to other drugs, medicaments and biological substances; Z91.018 Allergy to other foods; Z79.899 Other long term (current) drug therapy; Z79.84 Long term (current) use of oral hypoglycemic drugs; Z79.82 Long term (current) use of aspirin; Z79.51 Long term (current) use of inhaled steroids

== ENCOUNTER → 2020-07-04 | Outpatient (REF) | payer OTHER ==
[~2020-07-04] MED LIST changes: +CELE1CAP9; +CLEAPOW10
[2020-07-04 17:25] LABS: BASO # 0.1 10^3/uL (0.0-0.2); BASO % 0.9 % (0.0-1.0); EOS # 0.4 10^3/uL (0.0-0.5); EOS % 6.5 % (0.0-3.0); HEMOGLOBIN 11.8 g/dl (12.0-15.5); LYMPH # 3.1 10^3/uL (1.5-5.0); LYMPH % 45.1 % (24.0-44.0); MEAN CORPUSCULAR HEMOGLOBIN 27.1 pg (27.0-33.0); MEAN CORPUSCULAR HGB CONC 30.3 g/dl (32.0-36.5); MEAN CORPUSCULAR VOLUME 89.7 fl (80.0-96.0); MONO # 0.4 10^3/uL (0.0-0.8); MONO % 5.8 % (2.0-8.0); NEUTROPHILS # 2.8 10^3/uL (1.5-8.5); NEUTROPHILS % 41.3 % (36.0-66.0); PLATELET COUNT, AUTOMATED 194 10^3/uL (150-450); RED BLOOD COUNT 4.35 10^6/uL (4.00-5.40); WHITE BLOOD COUNT 6.8 10^3/uL (4.0-10.0)
[2020-07-04 17:28] LABS: HEMOGLOBIN A1c 6.6 %
[2020-07-04 17:43] LABS: ALBUMIN 3.6 GM/DL (3.2-5.2); ALT/SGPT 24 U/L (12-78); BILIRUBIN,TOTAL 0.7 MG/DL (0.2-1.0); BLOOD UREA NITROGEN 11 MG/DL (7-18); CALCIUM LEVEL 9.2 MG/DL (8.8-10.2); CARBON DIOXIDE LEVEL 26 MEQ/L (21-32); CHLORIDE LEVEL 104 MEQ/L (98-107); CHOLESTEROL LEVEL 156 MG/DL (<200); CHOLESTEROL RISK RATIO 2.136 (<5); CREATININE FOR GFR 0.62 MG/DL (0.55-1.30); FERRITIN 7 NG/ML (8-252); GLOMERULAR FILTRATION RATE > 60.0 (>45); GLUCOSE, FASTING 149 MG/DL (70-100); HDL CHOLESTEROL 73 MG/DL (>40); LDL CHOLESTEROL 65 MG/DL (<100); NON-HDL-C 83 MG/DL; NT-PRO BNP 79 PG/ML (<125); POTASSIUM SERUM 4.7 MEQ/L (3.5-5.1); SODIUM LEVEL 137 MEQ/L (136-145); TOTAL PROTEIN 7.3 GM/DL (6.4-8.2); TRIGLYCERIDES LEVEL 92 MG/DL (<150)
== END ==
LOC: M SFHCPLAZ 15:31
PROVIDERS: ATTEND Family Medicine
DX: D50.9 Iron deficiency anemia, unspecified (principal); E11.9 Type 2 diabetes mellitus without complications

== ENCOUNTER → 2020-10-21 | Outpatient (REF) | payer OTHER ==
[~2020-10-21] MED LIST changes: +ERGO500029 PO; +GABA-283 PO; -GABA-845 PO; -VITA50005 PO
[2020-10-21 17:41] LABS: HEMATOCRIT 35.5 % (36.0-47.0); MEAN CORPUSCULAR HEMOGLOBIN 26.4 pg (27.0-33.0); MEAN CORPUSCULAR VOLUME 85.1 fl (80.0-96.0); PLATELET COUNT, AUTOMATED 346 10^3/uL (150-450); RED BLOOD COUNT 4.17 10^6/uL (4.00-5.40); WHITE BLOOD COUNT 7.7 10^3/uL (4.0-10.0)
[2020-10-21 18:08] LABS: BLOOD UREA NITROGEN 14 MG/DL (7-18); CREATININE FOR GFR 0.72 MG/DL (0.55-1.30); GLOMERULAR FILTRATION RATE > 60.0 (>45); IRON (FE) 35 UG/DL (50-170); PERCENT SATURATION 7.2 % (13.2-45.0); TOTAL IRON BINDING CAPACITY 487 UG/DL (250-450)
== END ==
LOC: M LAB REF 17:24 → M PLALAB 17:24
PROVIDERS: ATTEND Physician Assistant Medical
DX: D50.9 Iron deficiency anemia, unspecified (principal)

== ENCOUNTER → 2020-10-21 | Outpatient (REF) | payer OTHER ==
[2020-10-21 17:42] LABS: BASO # 0.1 10^3/uL (0.0-0.2); BASO % 0.6 % (0.0-1.0); EOS # 0.3 10^3/uL (0.0-0.5); EOS % 3.4 % (0.0-3.0); HEMATOCRIT 34.8 % (36.0-47.0); HEMOGLOBIN 10.9 g/dl (12.0-15.5); LYMPH # 3.3 10^3/uL (1.5-5.0); LYMPH % 41.3 % (24.0-44.0); MEAN CORPUSCULAR HEMOGLOBIN 26.6 pg (27.0-33.0); MEAN CORPUSCULAR HGB CONC 31.3 g/dl (32.0-36.5); MEAN CORPUSCULAR VOLUME 84.9 fl (80.0-96.0); MONO # 0.6 10^3/uL (0.0-0.8); NEUTROPHILS # 3.7 10^3/uL (1.5-8.5); NEUTROPHILS % 47.4 % (36.0-66.0); PLATELET COUNT, AUTOMATED 322 10^3/uL (150-450); WHITE BLOOD COUNT 7.9 10^3/uL (4.0-10.0)
[2020-10-21 18:52] LABS: ALT/SGPT 20 U/L (12-78); BILIRUBIN,TOTAL 1.1 MG/DL (0.2-1.0); BLOOD UREA NITROGEN 14 MG/DL (7-18); CALCIUM LEVEL 8.5 MG/DL (8.8-10.2); CARBON DIOXIDE LEVEL 25 MEQ/L (21-32); CHLORIDE LEVEL 105 MEQ/L (98-107); CREATININE FOR GFR 0.68 MG/DL (0.55-1.30); FERRITIN 7 NG/ML (8-252); GLOMERULAR FILTRATION RATE > 60.0 (>45); GLUCOSE, FASTING 36 MG/DL (70-100); HEMOGLOBIN A1c 6.7 %; POTASSIUM SERUM 4.4 MEQ/L (3.5-5.1); SODIUM LEVEL 137 MEQ/L (136-145); THYROID STIMULATING HORMONE 0.314 uIU/ML (0.358-3.740); TOTAL PROTEIN 7.3 GM/DL (6.4-8.2)
== END ==
LOC: M PLALAB 17:21
PROVIDERS: ATTEND Family Medicine
DX: N39.0 Urinary tract infection, site not specified (principal); I50.30 Unspecified diastolic (congestive) heart failure; D50.9 Iron deficiency anemia, unspecified; E11.9 Type 2 diabetes mellitus without complications

== ENCOUNTER → 2020-11-14 | Outpatient (CLI) | payer OTHER ==
[2020-11-14 17:12] LABS: BASO # 0.1 10^3/uL (0.0-0.2); BASO % 0.9 % (0.0-1.0); EOS # 0.2 10^3/uL (0.0-0.5); EOS % 2.4 % (0.0-3.0); HEMATOCRIT 31.3 % (36.0-47.0); HEMOGLOBIN 9.5 g/dl (12.0-15.5); LYMPH # 3.2 10^3/uL (1.5-5.0); LYMPH % 39.4 % (24.0-44.0); MEAN CORPUSCULAR HEMOGLOBIN 26.2 pg (27.0-33.0); MEAN CORPUSCULAR HGB CONC 30.4 g/dl (32.0-36.5); MEAN CORPUSCULAR VOLUME 86.2 fl (80.0-96.0); MONO # 0.4 10^3/uL (0.0-0.8); NEUTROPHILS # 4.2 10^3/uL (1.5-8.5); NEUTROPHILS % 51.9 % (36.0-66.0); PLATELET COUNT, AUTOMATED 342 10^3/uL (150-450); RED BLOOD COUNT 3.63 10^6/uL (4.00-5.40); WHITE BLOOD COUNT 8.1 10^3/uL (4.0-10.0)
[2020-11-14 17:23] LABS: APPEARANCE, URINE CLOUDY (CLEAR); BACTERIA, URINE AUTO 3+ (NEGATIVE); BILIRUBIN, URINE AUTO NEGATIVE (NEGATIVE); BLOOD, URINE BLOOD NEGATIVE (NEGATIVE); COLOR, URINE AMBER (YELLOW); GLUCOSE, URINE (UA) AUTO NEGATIVE (NEGATIVE); KETONE, URINE AUTO TRACE mg/dL (NEGATIVE); LEUKOCYTE ESTERASE, URINE AUTO NEGATIVE (NEGATIVE); MUCUS, URINE SMALL (NEGATIVE); NITRITE, URINE AUTO POSITIVE (NEGATIVE); PROTEIN, URINE AUTO 1+ mg/dL (NEGATIVE); RBC, URINE AUTO 6 /HPF (0-3); SPECIFIC GRAVITY URINE AUTO 1.023 (1.002-1.035); SQUAMOUS EPITHELIAL CELL UR AU 9 /HPF (0-6); WBC, URINE AUTO 43 /HPF (0-3)
[2020-11-14 17:25] LABS: INR 0.89; PROTHROMBIN TIME 12.5 SECONDS (12.7-14.5)
[2020-11-14 17:26] LABS: PARTIAL THROMBOPLASTIN TIME 27.5 SECONDS (25.9-37.0)
[2020-11-14 17:38] LABS: ALBUMIN 3.3 GM/DL (3.2-5.2); ALT/SGPT 30 U/L (12-78); BILIRUBIN,TOTAL 0.9 MG/DL (0.2-1.0); BLOOD UREA NITROGEN 15 MG/DL (7-18); CALCIUM LEVEL 8.8 MG/DL (8.8-10.2); CARBON DIOXIDE LEVEL 28 MEQ/L (21-32); CHLORIDE LEVEL 102 MEQ/L (98-107); CREATININE FOR GFR 0.72 MG/DL (0.55-1.30); FERRITIN 8 NG/ML (8-252); GLOMERULAR FILTRATION RATE > 60.0 (>45); GLUCOSE, FASTING 64 MG/DL (70-100); NT-PRO BNP 57 PG/ML (<125); POTASSIUM SERUM 4.3 MEQ/L (3.5-5.1); SODIUM LEVEL 137 MEQ/L (136-145); TOTAL PROTEIN 6.8 GM/DL (6.4-8.2)
== END ==
LOC: M PLALAB 15:37
PROVIDERS: ATTEND Family Medicine
DX: Z01.818 Encounter for other preprocedural examination (principal); D50.9 Iron deficiency anemia, unspecified; E03.9 Hypothyroidism, unspecified; N39.0 Urinary tract infection, site not specified

== ENCOUNTER 2020-11-19 08:50 | Outpatient (CLI) | payer OTHER ==
[~2020-11-19] VITALS: Ht 172.7 cm; Wt 100.0 kg
[2020-11-19 08:50] VITALS: BP 156/78
[~2020-11-19 08:50] MED LIST changes: +ACETAMINOPHEN TAB 650MG DOSE (2X325MG) PO ONE; +ALBUTEROL SULFATE (2.5MG/0.5ML) NEB INH PRN; +EPINEPHrine (1MG/ML) IV IM PRN; +IRON SUCROSE 250 MG in NS 250 ML IV ONE; -KLOR10TA76 PO; -KLOR20TA42 PO; +NS 1,000 ML IV ONE; +POTA-136 PO; +POTA-141 PO; +diphenhydrAMINE (50MG/ML) IV IV PRN; +methylPREDNISolone (125 MG/2 ML) IV IV PRN
[2020-11-19 11:00] VITALS: BP 128/80
[2020-11-19 13:17] VITALS: BP 100/56
== END 2020-11-19 12:20 | disposition home or self-care (01) ==
LOC: M INFU 08:50
PROVIDERS: ATTEND Family Medicine
DX: D64.9 Anemia, unspecified (principal); Z88.1 Allergy status to other antibiotic agents; Z88.2 Allergy status to sulfonamides; Z88.8 Allergy status to other drugs, medicaments and biological substances
CPT/HCPCS: 96365; 96366; J1756

== ENCOUNTER → 2020-11-20 | Outpatient (CLI) | payer OTHER ==
[~2020-11-20] MED LIST changes: -ACETAMINOPHEN TAB 650MG DOSE (2X325MG) PO ONE; -ALBUTEROL SULFATE (2.5MG/0.5ML) NEB INH PRN; -EPINEPHrine (1MG/ML) IV IM PRN; -IRON SUCROSE 250 MG in NS 250 ML IV ONE; -NS 1,000 ML IV ONE; -diphenhydrAMINE (50MG/ML) IV IV PRN; -methylPREDNISolone (125 MG/2 ML) IV IV PRN
--- NOTE | 2020-11-20 15:30 | DEXAMM ---
INDICATION: OSTEOPOROSIS. COMPARISON: 10/25/2018 as well as other prior exams. TECHNIQUE: Bone density was measured using dual-energy x-ray absorptiometry (DEXA). FINDINGS: AP SPINE L1-L4 BMD 0.964 g/cm2 Young Adult T-Score -1.9 Age Matched Z-Score -0.3. LT FEMUR, TOTAL BMD 0.954 g/cm2 Young Adult T-Score -0.4 Age Matched Z-Score 0.7. LT NECK BMD 0.813 g/cm2 Young Adult T-Score -1.6 Age Matched Z-Score -0.2. RT FEMUR, TOTAL BMD 1.12 g/cm2 Young Adult T-Score 0.8 Age Matched Z-Score 2.0. RT NECK BMD 0.758 g/cm2 Young Adult T-Score -2.0 Age Matched Z-Score -0.6. IMPRESSION: There is low bone density of the spine. There is low bone density of the left hip. There is low bone density of the right hip. The density of the spine has increased 4.4% since the initial exam on 11/24/1999. The density of the spine decreased 2.2% since most recent exam on 10/25/2018. The density of the left hip has decreased 1.5% since initial exam on 11/24/1999. The density of the left hip has decreased 0.5% since most recent exam on 10/25/2018. The density of the right hip has increased 16.8% since the initial exam on 11/24/1999. The density of the right hip has increased 17.1% since the most recent exam on 10/25/2018. FOLLOW-UP: Recommendation for the next bone density exam: 2 years. <Electronically signed by Mariano Moses > 11/20/20 [id number]
--- NOTE | 2020-11-20 16:09 | REPMRS ---
Patient History The patient states she has not had a clinical breast exam in over a year. Family history of breast cancer at age 50 or over in sister, prostate cancer at age 50 or over in paternal uncle, prostate cancer at age 50 or over in paternal uncle. Benign excisional biopsy of the left breast, 1988. No breast complaints today Patient signed the MRS sheet 1st covid vaccine 10/01/20-right arm-Moderna 2nd covid vaccine 11/05/20-right arm Priors on PACS Patient Identification Verified Digital Woman Screen Mammo: November 20, 2020 - Exam #: [id number] Bilateral CC and MLO view(s) were taken. Technologist: Lucia Moreno, Technologist Prior study comparison: October 25, 2018, bilateral digital woman screen mammo performed at [facility]. October 20, 2016, bilateral digital mammo screening bilat, performed at [facility]. FINDINGS: There are scattered fibroglandular densities. Screening. Digital screening (2D) mammography was performed bilaterally in the CC and MLO projections. Additionally, breast tomosynthesis (3D mammography) was performed bilaterally in the CC and MLO projections. Todays exam was compared to the prior exam/exams. By history, the patient has no complaints of a palpable breast abnormality or other significant breast complaints. The breasts are unchanged in size and shape. There are no neel-soft tissue densities or spiculated masses. There is no internal architectural distortion. Once again, stable benign appearing calcifications are seen.There are no suspicious neel-calcific clusters. Skin thickening or nipple retraction is not present. IMPRESSION: BI-RADS Category 2- Benign Findings. There is no evidence of malignant alteration of the breasts. Followup examination recommended in one year. The Volpara volumetric breast density category is B, there are scattered areas of fibroglandular densities. This mammogram was read with the assistance of Zervant,an FDA approved computer aided detection system for mammography. The lifetime Tyrer-Cuzick score is 8.4 % Negative x-ray reports should not delay surgical consultation if a dominant or clinically suspicious mass is present. Not all breast cancers can be identified by mammography. Therefore, we recommend that you continue to perform regular breast self-examination and physical examination and then promptly contact your physician of any concerns or changes. Adenosis and dense breasts may obscure an underlying neoplasm. Assessment: BI-RADS/ACR category 2 mammogram. Benign Findings. Recommendation Routine screening mammogram of both breasts in 1 year. Electronically Signed By: Darius Naylor DO 11/20/20 1142
== END ==
LOC: M WHC 13:38
PROVIDERS: ATTEND Family Medicine
DX: Z12.31 Encounter for screening mammogram for malignant neoplasm of breast (principal); M81.0 Age-related osteoporosis without current pathological fracture

== ENCOUNTER 2020-11-24 10:42 | Outpatient (CLI) | payer OTHER ==
[~2020-11-24] VITALS: Ht 167.6 cm; Wt 99.5 kg
[~2020-11-24 10:42] MED LIST changes: +ALBUTEROL SULFATE 2.5 MG/0.5 ML INH NEB SOLN INH PRN; +EPINEPHrine INJ 1 MG/ML 1ML AMP IM PRN; +IRON SUCROSE 250 MG in NS 250 ML IV ONE; +NS 1,000 ML IV SCH; +diphenhydrAMINE 50MG/ML VIAL (J1200) IV PRN; +methylPREDNISolone 125MG 2ML VIAL IV PRN
[2020-11-24 10:55] VITALS: BP 127/63
[2020-11-24 13:00] VITALS: BP 120/66
[2020-11-24 14:15] VITALS: BP 113/67
== END 2020-11-24 14:15 | disposition home or self-care (01) ==
LOC: M INFU 10:42
PROVIDERS: ATTEND Family Medicine
DX: D64.9 Anemia, unspecified (principal); Z88.1 Allergy status to other antibiotic agents; Z88.2 Allergy status to sulfonamides; Z88.8 Allergy status to other drugs, medicaments and biological substances
CPT/HCPCS: 96365; J1756

== ENCOUNTER → 2020-11-26 | Outpatient (CLI) | payer OTHER ==
[~2020-11-26] MED LIST changes: -ALBUTEROL SULFATE 2.5 MG/0.5 ML INH NEB SOLN INH PRN; +DICL20GE TP; -EPINEPHrine INJ 1 MG/ML 1ML AMP IM PRN; -IRON SUCROSE 250 MG in NS 250 ML IV ONE; +NITR100C2 PO; -NS 1,000 ML IV SCH; -diphenhydrAMINE 50MG/ML VIAL (J1200) IV PRN; -methylPREDNISolone 125MG 2ML VIAL IV PRN
== END ==
LOC: M LABSMTC 11:36
PROVIDERS: ATTEND Anesthesiology
DX: Z01.812 Encounter for preprocedural laboratory examination (principal); Z20.822 Contact with and (suspected) exposure to COVID-19

== ENCOUNTER → 2020-12-02 | Outpatient (CLI) | payer OTHER ==
[~2020-12-02] MED LIST changes: +GLUCAGON INJ 1MG VIAL As Ordered ONE; +ISOVUE-370 76% 100ML VIAL As Ordered ONE; +NEULUMEX 0.1% SUSPENSION 450ML BOTTLE (FORMERLY VOLUMEN) As Ordered ONE
--- NOTE | 2020-12-02 17:07 | REP ---
INDICATION: D50.9 IRON DIFF ANEMIA COMPARISON: 05/01/2020 TECHNIQUE: Axial contrast-enhanced images from the lung bases to the pubic symphysis with images obtained in arterial and portal venous phases of enhancement. Low-dose oral contrast material was administered prior to imaging. Coronal and sagittal reformations were obtained. This CT examination was performed using the following dose reduction techniques: Automated exposure control, adjustment of mA and/or kv according to the patient's size, and use of iterative reconstruction technique. FINDINGS: A small hiatal hernia is identified. The stomach, duodenum and small bowel is relatively normal in appearance. The large bowel is grossly unremarkable including terminal ileum and cecum. No significant diverticulosis. There is no evidence for bowel obstruction, perforation, surrounding inflammatory stranding or obvious inflammatory process. No obvious stricture stenosis. Liver, spleen, pancreas, bilateral adrenal glands and kidneys are normal. Evidence for prior cholecystectomy. Pelvis demonstrates normal bladder and findings to suggest prior hysterectomy. No ascites. No adenopathy. No free air. Abdominal aorta is without aneurysm or dissection. Musculoskeletal structures demonstrate age-related changes without acute osseous abnormality. Lung bases are clear. IMPRESSION: 1. Small hiatal hernia. Otherwise relatively normal age-appropriate appearance to the enteric system. 2. Prior cholecystectomy and hysterectomy. 3. No acute abdominopelvic pathology appreciated. <Electronically signed by Jamar Nichols > 12/02/20 2804
== END ==
LOC: M RAD 12:30
PROVIDERS: ATTEND Physician Assistant Medical
DX: D50.9 Iron deficiency anemia, unspecified (principal)
CPT/HCPCS: 74177; J1610; Q9967

== ENCOUNTER 2020-12-22 10:37 | Outpatient (CLI) | payer OTHER ==
[~2020-12-22] VITALS: Ht 167.6 cm; Wt 99.5 kg
[~2020-12-22 10:37] MED LIST changes: +ALBUTEROL SULFATE 2.5 MG/0.5 ML INH NEB SOLN INH PRN; -CYMB60CA3 PO; +CYMB60CA4 PO; +EPINEPHrine INJ 1 MG/ML 1ML AMP IM PRN; -GLUCAGON INJ 1MG VIAL As Ordered ONE; +IRON SUCROSE 250 MG in NS 250 ML IV ONE; -ISOVUE-370 76% 100ML VIAL As Ordered ONE; -NEULUMEX 0.1% SUSPENSION 450ML BOTTLE (FORMERLY VOLUMEN) As Ordered ONE; +NS 1,000 ML IV SCH; +diphenhydrAMINE 50MG/ML VIAL (J1200) IV PRN; +methylPREDNISolone 125MG 2ML VIAL IV PRN
[2020-12-22 10:58] VITALS: BP 133/79
[2020-12-22 12:55] VITALS: BP 121/71
== END 2020-12-22 15:41 | disposition home or self-care (01) ==
LOC: M INFU 10:37
PROVIDERS: ATTEND Family Medicine
DX: D64.9 Anemia, unspecified (principal); Z88.1 Allergy status to other antibiotic agents; Z88.2 Allergy status to sulfonamides; Z88.8 Allergy status to other drugs, medicaments and biological substances
CPT/HCPCS: 96365; J1756

== ENCOUNTER 2020-12-25 16:38 | Emergency (ER) | payer OTHER ==
[~2020-12-25] VITALS: Ht 167.6 cm; Wt 99.1 kg
[~2020-12-25 16:38] MED LIST changes: -ALBUTEROL SULFATE 2.5 MG/0.5 ML INH NEB SOLN INH PRN; -EPINEPHrine INJ 1 MG/ML 1ML AMP IM PRN; -IRON SUCROSE 250 MG in NS 250 ML IV ONE; -NS 1,000 ML IV SCH; -diphenhydrAMINE 50MG/ML VIAL (J1200) IV PRN; -methylPREDNISolone 125MG 2ML VIAL IV PRN
[2020-12-25 16:41] VITALS: BP 99/54
--- OUTSIDE RECORDS SUMMARY | 2020-12-25 16:48 | CCD ---
Author Author [facility] Organization [facility] Address Unknown Phone Unavailable Care Team Providers Care Fiberglass Insulation Installer Name Role Phone Kimani Ann Unavailable PROBLEMS Type Condition ICD9-CM Code CRD53-CA Code Onset Dates Condition S tatus W/U Status Risk SNOMED Code Notes Problem Depression F32.9 Active confirmed 84823545 Problem Insomnia G47.00 Active confirmed 986241541 Problem Breast cancer screening Z12.39 Active confirmed 657051076 Problem Gastroesophageal reflux disease, esophagitis pre sence not specified K21.9 Active confirmed 525140757 Problem Folic acid deficiency E53.8 Active confirmed 758602420 Problem NICKI (obstructive sleep apnea) G47.33 Active confirm ed 47103054 Problem Osteoporosis M81.0 Active confirmed 5917363 6 Problem Tibial plateau fracture, left S82.142A Active confi rmed 40407251 Problem Vitamin D deficiency E55.9 Active confirmed 85674355 Problem Oral candidiasis B37.0 Active confirmed 797 28141 Problem Hypothyroid E03.9 Active confirmed 70845044 Problem Fibromyalgia M79.7 Active confirmed 1825342 05 Problem Hypertension I10 Active confirmed 9074789 3 Problem Other disturbances of skin sensation R20.8 Act андрей confirmed 85699925 Problem Hyperalgesia R20.8 Active confirmed 7242805 8 Problem Hypothyroidism, unspecified E03.9 Active confirmed 89652282 Problem Ataxia R27.0 Active confirmed 47375942 Problem Mixed hyperlipidemia E78.2 Active confirmed 994226989 Problem Asthma, severe persistent J45.50 Active confirmed 932583278 Problem Essential tremor G25.0 Active confirmed 609 458995 Problem Hyperlipidemia E78.5 Active confirmed 73333 004 Problem Diabetes mellitus without me ntion of complication, type II or unspecified type, not stated as uncontrolled 250.00 Activ e confirmed 339986855 Problem Diastolic CHF I50.30 Active confirmed 319881 008 Problem Chronic pain syndrome G89.4 Active confirmed 200179912 Problem Recurrent urinary tract infection N39.0 Active confirmed 073041577 Problem Constipation, chronic K59.09 Active confirmed 374734138 Problem Impingement syndrome of both shoulders M75.41 A ctive confirmed 342399850 Problem 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 Active confirmed 4 62986932 Problem Falls frequently R29.6 Active confirmed 279 990855 Problem Primary osteoarthritis of right knee M17.11 Act андрей confirmed 933971104172734 Problem Anemia, iron deficiency D50.9 Active confirmed 40921575 Problem Wrist fracture, left, sequela S62.102S Active confi rmed 702368952 Problem Recurrent epistaxis R04.0 Active confirmed 436024642 Problem Colon polyp K63.5 Active confirmed 90025480 Problem DM2 (diabetes mellitus, type 2) E11.9 Active confi rmed 59311359 Problem Pulmonary embolism I26.99 Active confirmed 5 2182780 Problem DJD (degenerative joint disease), cervical M50.30 Active confirmed 73213268 Problem Primary osteoarthritis of both knees M17.0 Act андрей confirmed 287085693 Problem Menopausal and female climacteric states N95.1 Active confirmed 845536034 Problem DJD (degenerative joint disease), lumbar M47.816 Active confirmed 965362326 Problem Anxiety F41.9 Active confirmed 77853971 Problem Constipation, unspecified constipation type K59.00 Active confirmed 37634849 ALLERGIES Allergen (clinical drug ingredient) Drug/Non Drug Allergy do cumented on EMR Reaction Allergy Type Onset Date Status tequin pruritis Non Drug Allergy Active Zocor 10 Anaphylaxis Drug Allergy Active puneet sprinkles head ache Non Drug Allergy Active Vioxx (for allergy use only) bruising Drug Allergy Active ENCOUNTERS from 1955 to 2020-12-19 Encounter Location Date Provider Diagnosis [place] [id number] [facility] [phone] [place] [address] Dec, Kimani Ann IMMUNIZATIONS Vaccine Route Administration Date Status Influenza 6mo & up Fluzone IM Intramuscular Feb 13, 2013 Admi nistered SOCIAL HISTORY Tobacco Use: Social History Observation Description Date Details (start date - stop date) Never Smoker Sex Assigned At : Social History Observation Description Sex Assigned At Unknown Education: Question Answer Notes Level of Education: High School Language: Question Answer Notes Languages spoken: Slovenian Yarsanism: Question Answer Notes Yarsanism 21 [employer] Sexual Hx: Question Answer Notes Had sex [...] Notes Start Da te End Date Status metFORMIN HCl 850 mg 1 tablet by mouth Twice a day for 30 Days Active Macrobid 100 MG 1 cap Orally bid for 7 day(s) Nov, Active Escitalopram Oxalate 10 MG 1 tablet Orally Once a day for 30 Days Active prednisoLONE Acetate 1 % 1 drop into affected eye Ophthalmic Twice a day Active Folic Acid 1 MG 1 tablet Orally Once a day for 30 Days Active Cromolyn Sodium 20 MG/2ML 2 ml Inhalation Three times a day for 30 da ys Active Advair Diskus 250-50 MCG/DOSE 1 puff Inhalation Twice a day for 30 Da ys Active Potassium chloride 20 meq 1 tab(s) orally Once a day for 30 Days Active Mupirocin 2 % 1 application to each nares R intranasal septum TID for 30 Days Nov, Active Proventil HFA 108 (90 Base) MCG/ACT 2 puffs Inhalation 4 times a day as needed for 30 Days Active Blood Glucose Test - as directed subcutaneously qid for 30 Days Oct, Active Tamsulosin HCl 0.4 MG 1 capsule Orally Once a day for 30 Days Active Indapamide 2.5 MG 1 tablet by mouth Once a day for 30 Days Active Magnesium Oxide 400 (240 Mg) MG TAKE ONE TABLET BY NELSON TH @8AM and TAKE ONE TABLET @8PM for 28 Active Cyclobenzaprine HCl 5 MG 1 tab Orally TID prn for 30 Days Active Nystatin Powder 613079 UNIT 1 application to affected area Externally twice daily under juan breasts for 30 day(s) Active Rosuvastatin Calcium 40 MG 1 tablet Orally Once a day for 90 day(s) Active Esomeprazole Magnesium 20 MG 2 capsules Orally every morning for 30 D ays Active Mag-Oxide 400 MG 1 tablet Orally Twice a day for 30 Days Active Voltaren 1 % as directed Transdermal Four times a day as needed to posterior knee for 30 Days Active Polyethylene Glycol - 8 gm orally in 8 oz liquid daily for 30 Days Active Escitalopram Oxalate 10 MG 1 tablet Orally Once a day for 28 Active Levothyroxine Sodium 75 MCG 1 tablet every morning on an empty stomach Orally Once a day for 30 day(s) Active Ketorolac Tromethamine 0.5 % 1 drop into affected eye as needed Ophthalmic Four times a day Active Baclofen 10 MG as directed Orally four times daily for 30 Days Active Rozerem 8 mg 1 tablet at bedtime Orally Daily at bedt elke as needed for 30 Days Active Nitrofurantoin Macrocrystal 50 MG 1 cap Orally at bedtime Active Glucometer as directed DX: E11.9 Daily for 90 day(s) Au g2020 Active Lancets - as directed subcutaneously qid for 30 Days A ug, 2020 Active Proventil HFA 108 (90 Base) MCG/ACT 2 puffs Inhalation 4 times a day as needed for 30 Days Active Blood Glucose Test One touch as directed SQ Twice a day DX 250 for 90 days Active Senna Plus 8.6-50 MG 2 tablet in the evening as n eeded Orally Once a day for 30 Days Active Amitriptyline HCl 25 mg 1 tab Orally at bedtime for 30 Days Active Ergocalciferol 61913 UNIT 1 capsule Orally every 14 days for 30 Days Active Gabapentin 800 MG 1 tablet Orally Three times a day for 30 Days Active SITagliptin Phosphate 100 MG 1 tablet Orally Once a day for 30 Days Active Injectafer 750 MG/15ML as directed Intravenous Nov, Active DULoxetine HCl 60 MG 1 capsule Orally bid for 30 Days Active Reclast 5 MG/100ML as directed Intravenous Active PROCEDURES No Information RESULTS No Results REASON FOR VISIT refills MEDICAL (GENERAL) HISTORY Type Description Date Medical History asthma, severe persistent-fo llows with Dr. Wadsworth-10/2015 FEV1 2.0L (69%)/ratio 80 %//02/[address] chest PE protocol Medical History thoracolumbar DJD, status po st L5/S1 laminectomy-06/2015 MRI lumbar spine showing L5/S1 laminectomy changes c L4-S1 diffuse bulges abutting thecal sac, no changes c/w 04/2014 and 04/2007/January 2011 [facility] Melchor-R C8 subacute radiculopathy, mild chronic right C6-C7 radiculopathy, very mild right carpal tunnel syndrome//06/2013 - RF/CCP/NETTE/ ML DJD, ricardo L5/S1 s [...] instability-June 2010 normal nerve conduction studies bilateral extremities-[facility] Medical History anemia, iron deficiency Medical History bilateral intertriginous candidiasis of bilateral breasts Medical History hypothalamic hyperhidrosis Medical History insomnia, multifactorial Medical History hypertension-March 2006 no rmal cardiac catheterization-Dr. Stroud/ normal dobutamine ST-[facility]te[facility] Medical History history of [...] mechanical [facility] laparoscopic cholecystectomy-Dr. Courtney January 2007 [...] bun ion surgery c bone graft/pin- Dr.Frederick Zambrano-[facility] 06/25/16 Surgical History IM nail fo R distal femur re trograde approach [address] Gao-[facility] 02/20/19 Surgical History left and right cataract removal- Dr. Miranda oms-[facility] 09/24 10/25 Hospitalization History hyperkalemia 9.3 with mild i [...] - serial EK/T-I, telemetry 11/20- Hospitalization History Esuapj-vwry-wh respiratory f ailure c desaturation to Sa)2 [...] IM nail placement by Dr. Gao, tx [facility] 02/19- Hospitalization History P. mirabilis UTI c sepsis-[facility] WBC 16.3, BCX1 NG, CT AP diffuse bladder wall thickening, rxed c ceft, dced on Augmentin 06/02-/06/05/19 Hospitalization History symptomatic acute blood loss anemia GI vs epistaxis-hgb 7.7, 90-tx 4u [facility], CTA AP, CXR NAD, leeann 200 QD held 04/30- Goals Section No Information Health Concerns No Information MEDICAL EQUIPMENT No Information MENTAL STATUS No Information FUNCTIONAL STATUS No Information ASSESSMENTS No Information PLAN OF TREATMENT Medication Medication Name Sig Start Date Stop Date Macrobid 100 MG 1 cap Orally bid for 7 day(s) Nov, Folic Acid 1 MG 1 tablet Orally Once a day for 30 Days Indapamide 2.5 MG 1 tablet by mouth Once a day for 30 Days Potassium chloride 20 meq 1 tab(s) orally Once a day for 30 Days Mag-Oxide 400 MG 1 tablet Orally Twice a day for 30 Days Cromolyn Sodium 20 MG/2ML 2 ml Inhalation Three times a day for 30 days Proventil HFA 108 (90 Base) MCG/ACT 2 puffs Inhalation 4 times a day as needed for 30 Days Tamsulosin HCl 0.4 MG 1 capsule Orally Once a day for 30 Days Escitalopram Oxalate 10 MG 1 tablet Orally Once a day for 30 Day s Rosuvastatin Calcium 40 MG 1 tablet Orally Once a day for 90 day (s) Mupirocin 2 % 1 application to each nares R intranasal septum TID for 30 Days Nov, DULoxetine HCl 60 MG 1 capsule Orally bid for 30 Days Reclast 5 MG/100ML as directed Intravenous SITagliptin Phosphate 100 MG 1 tablet Orally Once a day for 30 D ays Gabapentin 800 MG 1 tablet Orally Three times a day for 30 Days Senna Plus 8.6-50 MG 2 tablet in the evening as n eeded Orally Once a day for 30 Days Esomeprazole Magnesium 20 MG 2 capsules Orally every morning for 30 Days Polyethylene Glycol - 8 gm orally in 8 oz liquid daily for 30 Da ys Voltaren 1 % as directed Transdermal Four times a day as needed to posterior knee for 30 Days Injectafer 750 MG/15ML as directed Intravenous Nov, Levothyroxine Sodium 75 MCG 1 tablet every morning on an empty stomach Orally Once a day for 30 day(s) Ergocalciferol 22333 UNIT 1 capsule Orally every 14 days for 30 Days Amitriptyline HCl 25 mg 1 tab Orally at bedtime for 30 Days Rozerem 8 mg 1 tablet at bedtime Orally Daily at bedt elke as needed for 30 Days metFORMIN HCl 850 mg 1 tablet by mouth Twice a day for 30 Days Advair Diskus 250-50 MCG/DOSE 1 puff Inhalation Twice a day for 30 Days Proventil HFA 108 (90 Base) MCG/ACT 2 puffs Inhalation 4 times a day as needed for 30 Days Baclofen 10 MG as directed Orally four times daily for 30 Days Cyclobenzaprine HCl 5 MG 1 tab Orally TID prn for 30 Days Next Appt Details Provider Name:Kimani Ann, 2021-03-20 1 1:45:00 AM, [address] [facility], , [place], [address], Insurance Providers Payer Name Payer Address Payer Phone Insured Name Patient Relati onship to Insured Coverage Start Date Coverage End Date [facility] [place] [address] [facility] [phone] CASSIE ARTHUR self
--- OUTSIDE RECORDS SUMMARY | 2020-12-25 16:49 | CCD | Continuity of Care Document ---
Author Author Trini ROJO PA-C Organization Unknown Address [address] [place] [address] [address] [place] [address] Phone [phone] Care Team Providers Care Foreign Collection Clerk Name Role Phone Kimani Ann MD AUT [phone] Problems Active Problems Provider Date Plantar fascial fibromatosis Onset: 12/06 Social History Type Date Description Comments Sex Unknown ETOH Use Never used alcohol ETOH Use Denies alcohol use Tobacco Use Start: Unknown Patient has never smoked Tobacco Use Start: Unknown Denies Smoking Allergies, Adverse Reactions, Alerts Active Allergies Criticality Reaction | Severity Comments Date Crestor Unable to assess criticality 03/12/2015 Ferrous Sulfate Unable to assess criticality 03/12/2015 TeQuin Unable to assess criticality 03/12/2015 Gonzalo-dur Unable to assess criticality 03/12/2015 Medications Active Medications SIG Qnty Indications Ordering Provide r Date Proventil HFA 108(90Base) mcg/Act Aerosol Unknown Ambien 10mg Tablets i @hs as needed [...] Methylprednisolone Tablets Unknown Rozerem 8mg Tablets Unknown Hydrocodone 7.5mg Liquid 6 Times Per Day Unknown Pulmicort 0.5mg/2ML Suspension Unknown Lexapro 10mg Tablets 1 by mouth every day Unknown Ergocalciferol [id number] Capsules 1 by mouth once a week [...] by mouth 2 x every day Unknown Immunizations Description No Information Available Vital Signs Date Vital Result Comment 07/25/2020 10:34am Height 66 inches 5'6" Weight 218.00 lb BMI (Body Mass Index) 35.2 kg/m2 11/18/2015 11:50am Body Temperature 98.1 F Height 65 inches 5'5" Weight 231.00 lb BMI (Body Mass Index) 38.4 kg/m2 Results Description No Information Available Procedures Date Code Description Status 10/23/2020 12623 X-Ray Knee Ap & Lateral W/Obliqu es Three Views Completed 10/23/2020 96426 Inject/Drain Joint/Bursa Major C ompleted 07/25/2020 28807 Inject/Drain Joint/Bursa Major C ompleted Medical Devices Description No Information Available Encounters Type Date Location Provider Dx Diagnosis Office Visit 10/23/2020 1:15p Angie Rojo PA-C M1 7.0 Bilateral primary osteoarthritis of knee Office Visit 07/25/2020 10:30a [place] Bren Rojo PA-C M1 7.0 Bilateral primary osteoarthritis of knee Assessments Date Code Description Provider 10/23/2020 M17.0 Bilateral primary osteoarthritis of knee Bren Rojo PA-C 07/25/2020 M17.0 Bilateral primary osteoarthritis of knee Bren Rojo PA-C 07/15/2020 M17.0 Bilateral primary osteoarthritis of knee Bren Rojo PA-C Plan of Treatment 10/23/2020 - Bren Rojo PA-C* M17.0 Bilateral primary osteoarthritis of knee* Follow up:* 3 month garcia knee cortisone inj with BMS Functional Status Description No Information Available Mental Status Description No Information Available Referrals Refer to Reason for Referral Status Appt Date Nabeel Bailey MD M17.0 GARCIA PRIMARY OSTEOARTHRITIS OF KNE E Created [address] [facility], [address] [place] [address] [phone]
--- OUTSIDE RECORDS SUMMARY | 2020-12-25 16:49 | CCD ---
Author Author [facility] Organization 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 Name Role Phone Kimani Ann Unavailable PROBLEMS Type Condition ICD9-CM Code [id number] Code Onset Dates Condition S tatus W/U Status Risk SNOMED Code Notes Problem Depression F32.9 Active confirmed 28493580 Problem Insomnia G47.00 Active confirmed 724292379 Problem Breast cancer screening Z12.39 Active confirmed 863504638 Problem Gastroesophageal reflux disease, esophagitis pre sence not specified K21.9 Active confirmed 843121897 Problem Folic acid deficiency E53.8 Active confirmed 340983098 Problem NICKI (obstructive sleep apnea) G47.33 Active confirm ed 94979755 Problem Osteoporosis M81.0 Active confirmed 9788415 6 Problem Tibial plateau fracture, left S82.142A Active confi rmed 43273271 Problem Vitamin D deficiency E55.9 Active confirmed 27375441 Problem Oral candidiasis B37.0 Active confirmed 797 02263 Problem Hypothyroid E03.9 Active confirmed 66372394 Problem Fibromyalgia M79.7 Active confirmed 5791444 05 Problem Hypertension I10 Active confirmed 7801989 3 Problem Other disturbances of skin sensation R20.8 Act андрей confirmed 29884219 Problem Hyperalgesia R20.8 Active confirmed 7503302 8 Problem Hypothyroidism, unspecified E03.9 Active confirmed 89488000 Problem Ataxia R27.0 Active confirmed 34688984 Problem Mixed hyperlipidemia E78.2 Active confirmed 001608629 Problem Asthma, severe persistent J45.50 Active confirmed 887931583 Problem Essential tremor G25.0 Active confirmed 609 307607 Problem Hyperlipidemia E78.5 Active confirmed 20414 004 Problem Diabetes mellitus without me ntion of complication, type II or unspecified type, not stated as uncontrolled 250.00 Activ e confirmed 995935123 Problem Diastolic CHF I50.30 Active confirmed 704890 008 Problem Chronic pain syndrome G89.4 Active confirmed 755539727 Problem Recurrent urinary tract infection N39.0 Active confirmed 597760112 Problem Constipation, chronic K59.09 Active confirmed 913412068 Problem Impingement syndrome of both shoulders M75.41 A ctive confirmed 195961123 Problem 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 Active confirmed 4 29162649 Problem Falls frequently R29.6 Active confirmed 279 158121 Problem Primary osteoarthritis of right knee M17.11 Act андрей confirmed 723268212750409 Problem Anemia, iron deficiency D50.9 Active confirmed 51066164 Problem Wrist fracture, left, sequela S62.102S Active confi rmed 933903144 Problem Recurrent epistaxis R04.0 Active confirmed 605844483 Problem Colon polyp K63.5 Active confirmed 52784479 Problem DM2 (diabetes mellitus, type 2) E11.9 Active confi rmed 92143908 Problem Pulmonary embolism I26.99 Active confirmed 5 4282835 Problem DJD (degenerative joint disease), cervical M50.30 Active confirmed 76583376 Problem Primary osteoarthritis of both knees M17.0 Act андрей confirmed 481932473 Problem Menopausal and female climacteric states N95.1 Active confirmed 191848359 Problem DJD (degenerative joint disease), lumbar M47.816 Active confirmed 709834137 Problem Anxiety F41.9 Active confirmed 88161592 Problem Constipation, unspecified constipation type K59.00 Active confirmed 89287452 ALLERGIES Allergen (clinical drug ingredient) Drug/Non Drug Allergy do cumented on EMR Reaction Allergy Type Onset Date Status tequin pruritis Non Drug Allergy Active Zocor 10 Anaphylaxis Drug Allergy Active puneet sprinkles head ache Non Drug Allergy Active Vioxx (for allergy use only) bruising Drug Allergy Active ENCOUNTERS from 1956 to 2020-12-19 Encounter Location Date Provider Diagnosis [place] [id number] [facility] [phone] [place] [address] Dec, Kimani Ann Depression F32.9 IMMUNIZATIONS Vaccine Route Administration Date Status Influenza 6mo & up Fluzone IM Intramuscular Feb 13, 2013 Admi nistered SOCIAL HISTORY Tobacco Use: Social History Observation Description Date Details (start date - stop date) Never Smoker Sex Assigned At : Social History Observation Description Sex Assigned At Unknown Education: Question Answer Notes Level of Education: High School Language: Question Answer Notes Languages spoken: Lao Oriental Orthodox: Question Answer Notes Oriental Orthodox 21 Jainism Sexual Hx: Question Answer Notes Had sex [...] prn for 30 Days Active Nystatin Powder 584182 UNIT 1 application to affected area Externally [...] DX: E11.9 Daily for 90 day(s) Au 2020 Active Lancets - as directed subcutaneously qid for 30 Days A 2020 Active Proventil HFA 108 (90 Base) [...] at bedtime for 30 Days Active Ergocalciferol 12804 UNIT 1 capsule Orally every 14 days [...] Information RESULTS No Results REASON FOR VISIT refill MEDICAL (GENERAL) HISTORY Type Description Date Medical History asthma, severe persistent-fo llows with Dr. Wadsworth-10/2015 FEV1 2.0L (69%)/ratio 80 %//02/[address] chest PE protocol Medical History thoracolumbar DJD, status po st L5/S1 laminectomy-06/2015 MRI lumbar spine showing L5/S1 laminectomy changes c L4-S1 diffuse bulges abutting thecal sac, no changes c/w 04/2014 and 04/2007//January 2011 [facility]-R C8 subacute radiculopathy, mild [...] instability-June 2010 normal nerve conduction [facility] Medical History anemia, iron deficiency Medical History [...] by Graciela Medical History R PE-dx at [facility]-CT A chest c "small pulmonary emboli to RU PA with areas of parenchymal disease suggestive of pulmonary infarction"- started in Xarelto 15 BID Medical History MRSA UTI-04/08/17 UCX >100K Medical History R distal femur comminuted fr acture sp mechanical fall [facility] laparoscopic cholecystectomy-Dr. Courtney January 2007 [...] bun ion surgery c bone graft/pin- Dr[facility]Frederick [facility]brano-[facility] 06/25/16 Surgical History IM nail fo R distal femur re trograde approach [address] [facility] Surgical History left and right cataract removal- Dr. Miranda oms-[facility] 09/24 10/25 Hospitalization History hyperkalemia 9.3 with [...] - serial EK/T-I, telemetry 11/20- Hospitalization History Ftniav-fxhs-hl respiratory f ailure c desaturation to Sa)2 20% from same day surgery for R bunion surgery, then rehab at [facility] 06/25- Hospitalization History frequent falls-favoring 2 op iate overuse/misuse-CT cervical/head NAD/xray thoracic, LS, L hip NAD, stable CBCD, CMP, CIP/T-I, - telemetry, UDS + morphine, oxycodone; unresponsive episode requiring Narcan 0.8 to reverse 04/08-06/22 Hospitalization History mechanical fall sp R femur s p IM nail placement by Dr. Gao, tx [facility] 02/19- Hospitalization History P. mirabilis UTI c [...] No Information FUNCTIONAL STATUS No Information ASSESSMENTS Encounter Date Diagnosis Assessment Notes Treatment Notes Treatm ent Clinical Notes Dec, Depression (ICD-10 - F32.9) PLAN OF TREATMENT Medication Medication Name Sig [...] Days Injectafer 750 MG/15ML as directed Intravenous 10 Nov, 2020 Levothyroxine Sodium 75 MCG 1 tablet every morning on an empty stomach Orally Once a day for 30 day(s) Ergocalciferol 02921 UNIT 1 capsule Orally every 14 days for 30 Days Amitriptyline HCl 25 mg 1 tab Orally at bedtime for 30 Days Rozerem 8 mg 1 tablet at bedtime Orally Daily at bedt elek as needed for 30 Days metFORMIN HCl [...] 30 Days Next Appt Details Provider Name:Kimani Paulaer, 2021-03-20 1 1:45:00 AM, [address] [facility], , [place], [address], Insurance Providers Payer Name Payer Address Payer Phone Insured Name Patient Relati onship to Insured Coverage Start Date Coverage End Date [facility] [address] [facility] [phone] CASSIE ARTHUR self
--- OUTSIDE RECORDS SUMMARY | 2020-12-25 16:49 | CCD ---
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 Name Role Phone Kimani Ann Unavailable PROBLEMS Type Condition ICD9-CM Code GSA70-QR Code Onset Dates Condition S tatus W/U Status Risk SNOMED Code Notes Problem Depression F32.9 Active confirmed 82186127 Problem Insomnia G47.00 Active confirmed 877121141 Problem Breast cancer screening Z12.39 Active confirmed 588317888 Problem Gastroesophageal reflux disease, esophagitis pre sence not specified K21.9 Active confirmed 212044111 Problem Folic acid deficiency E53.8 Active confirmed 928052833 Problem NICKI (obstructive sleep apnea) G47.33 Active confirm ed 54157140 Problem Osteoporosis M81.0 Active confirmed 8343225 6 Problem Tibial plateau fracture, left S82.142A Active confi rmed 16717543 Problem Vitamin D deficiency E55.9 Active confirmed 09992942 Problem Oral candidiasis B37.0 Active confirmed 797 35913 Problem Hypothyroid E03.9 Active confirmed 44451075 Problem Fibromyalgia M79.7 Active confirmed 5687661 05 Problem Hypertension I10 Active confirmed 6920384 3 Problem Other disturbances of skin sensation R20.8 Act андрей confirmed 19990917 Problem Hyperalgesia R20.8 Active confirmed 5377297 8 Problem Hypothyroidism, unspecified E03.9 Active confirmed 43146908 Problem Ataxia R27.0 Active confirmed 32299934 Problem Mixed hyperlipidemia E78.2 Active confirmed 303659106 Problem Asthma, severe persistent J45.50 Active confirmed 255163681 Problem Essential tremor G25.0 Active confirmed 609 470284 Problem Hyperlipidemia E78.5 Active confirmed 45188 004 Problem Diabetes mellitus without me ntion of complication, type II or unspecified type, not stated as uncontrolled 250.00 Activ e confirmed 240689467 Problem Diastolic CHF I50.30 Active confirmed 493676 008 Problem Chronic pain syndrome G89.4 Active confirmed 136432072 Problem Recurrent urinary tract infection N39.0 Active confirmed 173989128 Problem Constipation, chronic K59.09 Active confirmed 050465389 Problem Impingement syndrome of both shoulders M75.41 A ctive confirmed 845321503 Problem 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 Active confirmed 4 54986544 Problem Falls frequently R29.6 Active confirmed 279 740592 Problem Primary osteoarthritis of right knee M17.11 Act андрей confirmed 430353796623060 Problem Anemia, iron deficiency D50.9 Active confirmed 53696235 Problem Wrist fracture, left, sequela S62.102S Active confi rmed 018230819 Problem Recurrent epistaxis R04.0 Active confirmed 626636130 Problem Colon polyp K63.5 Active confirmed 11791235 Problem DM2 (diabetes mellitus, type 2) E11.9 Active confi rmed 94040546 Problem Pulmonary embolism I26.99 Active confirmed 5 5020574 Problem DJD (degenerative joint disease), cervical M50.30 Active confirmed 38144458 Problem Primary osteoarthritis of both knees M17.0 Act андрей confirmed 183093968 Problem Menopausal and female climacteric states N95.1 Active confirmed 639441922 Problem DJD (degenerative joint disease), lumbar M47.816 Active confirmed 727392598 Problem Anxiety F41.9 Active confirmed 85605567 Problem Constipation, unspecified constipation type K59.00 Active confirmed 64991607 ALLERGIES Allergen (clinical drug ingredient) Drug/Non Drug Allergy do cumented on EMR Reaction Allergy Type Onset Date Status tequin pruritis Non Drug Allergy Active Zocor 10 Anaphylaxis Drug Allergy Active puneet sprinkles head ache Non Drug Allergy Active Vioxx (for allergy use only) bruising Drug Allergy Active ENCOUNTERS from 1956 to 2020-11-18 Encounter Location Date Provider Diagnosis [place] [facility] [phone] [place] [address] Nov, Kimani Ann IMMUNIZATIONS Vaccine Route Administration Date [...] School Language: Question Answer Notes Languages spoken: Thai Nondenominational: Question Answer Notes Nondenominational 21 [employer] Sexual Hx: Question Answer Notes Had sex [...] Notes Start Da te End Date Status Senna Plus 8.6-50 MG 2 tablet in the evening as n eeded Orally Once a day for 30 Days Active Lancets - as directed subcutaneously qid for 30 Days 30 2020 Active Proventil HFA 108 (90 Base) MCG/ACT 2 puffs Inhalation 4 times a day as needed for 30 Days Active Ketorolac Tromethamine 0.5 % 1 drop into affected eye as needed Ophthalmic Four times a day Active Baclofen 10 MG as directed Orally four times daily for 30 Days Active Mag-Oxide 400 MG 1 tablet Orally Twice a day for 30 Days Active metFORMIN HCl 850 mg 1 tablet by mouth Twice a day for 30 Days Active Macrobid 100 MG 1 cap Orally bid for 7 day(s) Nov, Active Mupirocin 2 % 1 application to each nares R intranasal septum TID for 30 Days Nov, Active prednisoLONE Acetate 1 % 1 drop into affected eye Ophthalmic Twice a day Active Folic Acid 1 MG 1 tablet Orally Once a day for 30 Days Active Cromolyn Sodium 20 MG/2ML 2 ml Inhalation Three times a day for 30 da ys Active Potassium chloride 20 meq 1 tab(s) orally Once a day for 30 Days Active Magnesium Oxide 400 (240 Mg) MG TAKE ONE TABLET BY NELSON TH @8AM and TAKE ONE TABLET @8PM for 28 Active Proventil HFA 108 (90 Base) MCG/ACT 2 puffs Inhalation 4 times a day as needed for 30 Days Active Blood Glucose Test - as directed subcutaneously qid for 30 Days Oct, Active Rosuvastatin Calcium 40 MG 1 tablet Orally Once a day for 90 day(s) Active Esomeprazole Magnesium 20 MG 2 capsules Orally every morning for 30 D ays Active Nystatin Powder 042075 UNIT 1 application to affected area Externally twice daily under juan breasts for 30 day(s) Active Voltaren 1 % as directed Transdermal Four times a day as needed to posterior knee for 30 Days Active Amitriptyline HCl 25 mg 1 tab Orally at bedtime for 30 Days Active Tamsulosin HCl 0.4 MG 1 capsule Orally Once a day for 30 day(s) Active Levothyroxine Sodium 75 MCG 1 tablet every morning on an empty stomach Orally Once a day for 30 day(s) Active Polyethylene Glycol - 8 gm orally in 8 oz liquid daily for 30 Days Active Cyclobenzaprine HCl 5 MG 1 tab Orally TID prn for 30 Days Active Escitalopram Oxalate 10 MG 1 tablet Orally Once a day for 30 Days Active Escitalopram Oxalate 10 MG 1 tablet Orally Once a day for 28 Active Advair Diskus 250-50 MCG/DOSE 1 puff Inhalation Twice a day for 30 Da ys Active Glucometer as directed DX: E11.9 Daily for 90 day(s) 2020 Active Indapamide 2.5 MG 1 tablet by mouth Once a day for 30 Days Active Blood Glucose Test One touch as directed SQ Twice a day DX 250 for 90 days Active Nitrofurantoin Macrocrystal 50 MG 1 cap Orally at bedtime Active Rozerem 8 mg 1 tablet at bedtime Orally Daily at bedt elke as needed for 30 Days Active Ergocalciferol 30826 UNIT 1 capsule Orally every 14 days [...] Information RESULTS No Results REASON FOR VISIT PA Injectafer 750mg MEDICAL (GENERAL) HISTORY Type Description Date Medical [...] 2010 normal nerve conduction studies bilateral extremities-[facility] Medical History anemia, iron deficiency [...] by Graciela Medical History R PE-dx at [facility]-CT A chest c "small pulmonary emboli to RU PA with areas of parenchymal disease suggestive of pulmonary infarction"- started in Xarelto 15 BID Medical History MRSA UTI-04/08/17 UCX >100K Medical History R distal femur comminuted fr acture sp mechanical fall sp [facility] History laparoscopic cholecystectomy-Dr. Courtney January 2007 [...] bun ion surgery c bone graft/pin- [facility].Frederick [facility]brano-[facility] 06/25/16 Surgical History IM nail fo R distal femur re trograde approach [address] [facility] Surgical History left and right cataract removal- [facility]. Miranda oms-[facility] 09/24 10/25 Hospitalization History hyperkalemia 9.3 [...] - serial EK/T-I, telemetry 11/20- Hospitalization History [facility]-zshj-ow respiratory f ailure c desaturation to Sa)2 20% from same day surgery for R bunion surgery, then rehab at [facility] 06/25- Hospitalization History frequent falls-favoring 2 op iate overuse/misuse-CT cervical/head NAD/xray thoracic, LS, L hip NAD, stable CBCD, CMP, CIP/T-I, - telemetry, UDS + morphine, oxycodone; unresponsive episode requiring Narcan 0.8 to reverse 04/08-06/22 Hospitalization History mechanical fall sp R femur s p IM nail placement by Dr. Gao, tx [facility] 02/19- Hospitalization History P. mirabilis [...] Medication Name Sig Start Date Stop Date Folic Acid 1 MG 1 tablet Orally Once a day for 30 Days Baclofen 10 MG as directed Orally four times daily for 30 Days Potassium chloride 20 meq 1 tab(s) orally Once a day for 30 Days Macrobid 100 MG 1 cap Orally bid for 7 day(s) Nov, Indapamide 2.5 MG 1 tablet by mouth Once a day for 30 Days Proventil HFA 108 (90 Base) MCG/ACT 2 puffs Inhalation 4 times a day as needed for 30 Days Mag-Oxide 400 MG 1 tablet Orally Twice a day for 30 Days Mupirocin 2 % 1 application to each nares R intranasal septum TID for 30 Days Nov, Cromolyn Sodium 20 MG/2ML 2 ml Inhalation Three times a day for 30 days Voltaren 1 % as directed Transdermal Four times a day as needed to posterior knee for 30 Days Rosuvastatin Calcium 40 MG 1 tablet Orally Once a day for 90 day (s) DULoxetine HCl 60 MG 1 capsule Orally bid for 30 Days Reclast 5 MG/100ML as directed Intravenous SITagliptin Phosphate 100 MG 1 tablet Orally Once a day for 30 D ays Gabapentin 800 MG 1 tablet Orally Three times a day for 30 Days Polyethylene Glycol - 8 gm orally in 8 oz liquid daily for 30 Da ys Injectafer 750 MG/15ML as directed Intravenous Nov, Amitriptyline HCl 25 mg 1 tab Orally at bedtime for 30 Days Esomeprazole Magnesium 20 MG 2 capsules Orally every morning for 30 Days Levothyroxine Sodium 75 MCG 1 tablet every morning on an empty stomach Orally Once a day for 30 day(s) Ergocalciferol 83454 UNIT 1 capsule Orally every 14 days for 30 Days Rozerem 8 mg 1 tablet at bedtime Orally Daily at bedt elke as needed for 30 Days Escitalopram Oxalate 10 MG 1 tablet Orally Once a day for 30 Day s Senna Plus 8.6-50 MG 2 tablet in the evening as n eeded Orally Once a day for 30 Days Proventil HFA 108 (90 Base) MCG/ACT 2 puffs Inhalation 4 times a day as needed for 30 Days metFORMIN HCl 850 mg 1 tablet by mouth Twice a day for 30 Days Cyclobenzaprine HCl 5 MG 1 tab Orally TID prn for 30 Days Advair Diskus 250-50 MCG/DOSE 1 puff Inhalation Twice a day for 30 Days Next Appt Details Provider Name:Kimani Ann, 2021-03-20 1 1:45:00 AM, [address] [facility], , [place], [address], Insurance Providers Payer Name Payer Address Payer Phone Insured Name Patient Relati onship to Insured Coverage Start Date Coverage End Date [facility] [address] [facility] [phone] CASSIE ARTHUR self
--- OUTSIDE RECORDS SUMMARY | 2020-12-25 16:49 | CCD ---
Author Author [facility] Organization [facility] Address Unknown Phone Unavailable Care Team Providers Care Regional Account Executive Name Role Phone Kimani Ann Unavailable PROBLEMS Type Condition ICD9-CM Code UGB54-SP Code Onset Dates Condition S tatus W/U Status Risk SNOMED Code Notes Problem Depression F32.9 Active confirmed 43251958 Problem Insomnia G47.00 Active confirmed 763755304 Problem Breast cancer screening Z12.39 Active confirmed 647123670 Problem Gastroesophageal reflux disease, esophagitis pre sence not specified K21.9 Active confirmed 966886574 Problem Folic acid deficiency E53.8 Active confirmed 320440773 Problem NICKI (obstructive sleep apnea) G47.33 Active confirm ed 20402025 Problem Osteoporosis M81.0 Active confirmed 5163365 6 Problem Tibial plateau fracture, left S82.142A Active confi rmed 25056991 Problem Vitamin D deficiency E55.9 Active confirmed 85096787 Problem Oral candidiasis B37.0 Active confirmed 797 25805 Problem Hypothyroid E03.9 Active confirmed 20913453 Problem Fibromyalgia M79.7 Active confirmed 5919984 05 Problem Hypertension I10 Active confirmed 7262285 3 Problem Other disturbances of skin sensation R20.8 Act андрей confirmed 30331343 Problem Hyperalgesia R20.8 Active confirmed 2929108 8 Problem Hypothyroidism, unspecified E03.9 Active confirmed 17819887 Problem Ataxia R27.0 Active confirmed 89066926 Problem Mixed hyperlipidemia E78.2 Active confirmed 257957377 Problem Asthma, severe persistent J45.50 Active confirmed 383047337 Problem Essential tremor G25.0 Active confirmed 609 801045 Problem Hyperlipidemia E78.5 Active confirmed 25640 004 Problem Diabetes mellitus without me ntion of complication, type II or unspecified type, not stated as uncontrolled 250.00 Activ e confirmed 714074544 Problem Diastolic CHF I50.30 Active confirmed 450902 008 Problem Chronic pain syndrome G89.4 Active confirmed 476423303 Problem Recurrent urinary tract infection N39.0 Active confirmed 120033174 Problem Constipation, chronic K59.09 Active confirmed 825879416 Problem Impingement syndrome of both shoulders M75.41 A ctive confirmed 416860585 Problem 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 Active confirmed 4 61846915 Problem Falls frequently R29.6 Active confirmed 279 683400 Problem Primary osteoarthritis of right knee M17.11 Act андрей confirmed 339645659426155 Problem Anemia, iron deficiency D50.9 Active confirmed 11147015 Problem Wrist fracture, left, sequela S62.102S Active confi rmed 638890715 Problem Recurrent epistaxis R04.0 Active confirmed 586187834 Problem Colon polyp K63.5 Active confirmed 91779934 Problem DM2 (diabetes mellitus, type 2) E11.9 Active confi rmed 13731012 Problem Pulmonary embolism I26.99 Active confirmed 5 1720861 Problem DJD (degenerative joint disease), cervical M50.30 Active confirmed 45269157 Problem Primary osteoarthritis of both knees M17.0 Act андрей confirmed 527698151 Problem Menopausal and female climacteric states N95.1 Active confirmed 654474358 Problem DJD (degenerative joint disease), lumbar M47.816 Active confirmed 496452830 Problem Anxiety F41.9 Active confirmed 49958732 Problem Constipation, unspecified constipation type K59.00 Active confirmed 68500557 ALLERGIES Allergen (clinical drug ingredient) Drug/Non Drug Allergy do cumented on EMR Reaction Allergy Type Onset Date Status tequin pruritis Non Drug Allergy Active Zocor 10 Anaphylaxis Drug Allergy Active puneet sprinkles head ache Non Drug Allergy Active Vioxx (for allergy use only) bruising Drug Allergy Active ENCOUNTERS from 1955 to 2020-12-11 Encounter Location Date Provider Diagnosis [place] [id number] [facility] [phone] [place] [address] Dec, Kimani Ann Recurrent epistaxis R04.0 IMMUNIZATIONS Vaccine Route Administration Date Status Influenza 6mo & up Fluzone IM Intramuscular Feb 13, 2013 Admi nistered SOCIAL HISTORY Tobacco Use: Social History Observation Description Date Details (start date - stop date) Never Smoker Sex Assigned At : Social History Observation Description Sex Assigned At Unknown Education: Question Answer Notes Level of Education: High School Language: Question Answer Notes Languages spoken: Cymro Anabaptism: Question Answer Notes Anabaptism 21 Rastafari Sexual Hx: Question Answer Notes Had sex in the last 12 months (vaginal, oral, or anal)? No Have you ever had an STD? No Alcohol Screening: Question Answer Notes Did you have a drink containing alcohol in the past year? No Points 0 Interpretation Negative Tobacco Use: Question Answer Notes Are you a: never smoker REASON FOR REFERRAL from 1955 to 2020-12-11 Reason [facility] Diagnosis 1 Recurrent epistaxis (R04.0) Referral Organization [facility] [place] Referring Provider First Name Kimani Referring Provider Last Name Seth Referring Provider Specialty Family Medicine Referred Provider Specialty Otolaryngology Referral Priority Routine General Notes Deana Otero 12/10/2020 9:0 0:57 AM > referral ID# [id number]. Scanned into chart and faxed to office. VITAL SIGNS No information MEDICATIONS Medication SIG (Take, Route, Frequency, Duration) Notes Start Da te End Date Status Senna Plus 8.6-50 MG 2 tablet in the evening as n eeded Orally Once a day for 30 Days Active Lancets - as directed subcutaneously qid for 30 Days 30 A 2020 Active Proventil HFA 108 (90 [...] for 30 D ays Active Nystatin Powder 135173 UNIT 1 application to affected area Externally [...] as needed for 30 Days Active Ergocalciferol 89174 UNIT 1 capsule Orally every 14 days [...] Information RESULTS No Results REASON FOR VISIT Referral MEDICAL (GENERAL) HISTORY Type Description Date Medical [...] by Graciela Medical History R PE-dx at [facility]-CT A chest c "small pulmonary emboli to RU PA with areas of parenchymal disease suggestive of pulmonary infarction"- started in Xarelto 15 BID Medical History MRSA UTI-04/08/17 UCX >100K Medical History R distal femur comminuted fr acture sp mechanical fall sp [facility] History laparoscopic cholecystectomy-Dr. Courtney [...] trograde approach [address] [facility] Surgical History left and right cataract removal- Dr. Miranda [facility] 09/24 10/25 Hospitalization History hyperkalemia 9.3 with [...] - serial EK/T-I, telemetry 11/20- Hospitalization History Chndpu-temq-vr respiratory f ailure c desaturation to Sa)2 20% from same day surgery for R bunion surgery, then rehab at [facility] 06/25- Hospitalization History frequent falls-favoring 2 op iate overuse/misuse-CT cervical/head NAD/xray thoracic, LS, L hip NAD, stable CBCD, CMP, CIP/T-I, - telemetry, UDS + morphine, oxycodone; unresponsive episode requiring Narcan 0.8 to reverse 04/08-06/22 Hospitalization History mechanical fall sp R femur s p IM nail placement by Dr. Gao, tx [facility] 02/19- Hospitalization History P. mirabilis UTI c [...] Treatment Notes Treatm ent Clinical Notes Dec, Recurrent epistaxis (ICD-10 - R04.0) PLAN OF TREATMENT Medication Medication Name Sig [...] Once a day for 30 day(s) Ergocalciferol 25758 UNIT 1 capsule Orally every 14 days [...] Inhalation Twice a day for 30 Days Referrals Referral Date Details [facility] ENT Next Appt Details Provider Name:Kimani Ann, 2021-03-20 1 1:45:00 AM, [address] [facility], , [place], [address], Insurance Providers Payer Name Payer Address Payer Phone Insured Name Patient Relati onship to Insured Coverage Start Date Coverage End Date [facility] COMMUNITY PLAN [facility] [address] [facility] [phone] CASSIE ARTHUR self
--- OUTSIDE RECORDS SUMMARY | 2020-12-25 16:49 | CCD ---
Author Author [facility] Organization [facility] Address Unknown Phone Unavailable Care Team Providers Care Spinning Doffer Name Role Phone Kimani Ann Unavailable PROBLEMS Type Condition ICD9-CM Code WHH39-NV Code Onset Dates Condition S tatus W/U Status Risk SNOMED Code Notes Problem Fibromyalgia M79.7 Active confirmed 0102147 05 Problem Breast cancer screening Z12.39 Active confirmed 041307070 Problem Depression F32.9 Active confirmed 64126361 Problem Folic acid deficiency E53.8 Active confirmed 082384601 Problem Insomnia G47.00 Active confirmed 973181525 Problem Osteoporosis M81.0 Active confirmed 5160091 6 Problem Gastroesophageal reflux disease, esophagitis pre sence not specified K21.9 Active confirmed 883714068 Problem Oral candidiasis B37.0 Active confirmed 797 39519 Problem Hypothyroid E03.9 Active confirmed 56345462 Problem Chronic pain syndrome G89.4 Active confirmed 568312892 Problem Recurrent urinary tract infection N39.0 Active confirmed 708179630 Problem Hypertension I10 Active confirmed 3877750 3 Problem Vitamin D deficiency E55.9 Active confirmed 89320690 Problem Hyperalgesia R20.8 Active confirmed 4256719 8 Problem Pulmonary embolism I26.99 Active confirmed 5 0624123 Problem Mixed hyperlipidemia E78.2 Active confirmed 507063694 Problem Asthma, severe persistent J45.50 Active confirmed 587377140 Problem Other disturbances of skin sensation R20.8 Act андрей confirmed 27053538 Problem DJD (degenerative joint disease), lumbar M47.816 Active confirmed 364246306 Problem Diabetes mellitus without me ntion of complication, type II or unspecified type, not stated as uncontrolled 250.00 Activ e confirmed 733712941 Problem Impingement syndrome of both shoulders M75.41 A ctive confirmed 667318819 Problem Hypothyroidism, unspecified E03.9 Active confirmed 25442995 Problem Ataxia R27.0 Active confirmed 91944048 Problem Constipation, chronic K59.09 Active confirmed 653442056 Problem Hyperlipidemia E78.5 Active confirmed 41756 004 Problem Essential tremor G25.0 Active confirmed 609 449985 Problem Diastolic CHF I50.30 Active confirmed 538733 008 Problem Tibial plateau fracture, left S82.142A Active confi rmed 48021672 Problem 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 Active confirmed 4 84218267 Problem Falls frequently R29.6 Active confirmed 279 364042 Problem Constipation, unspecified constipation type K59.00 Active confirmed 36476760 Problem Colon polyp K63.5 Active confirmed 64559138 Problem Anemia, iron deficiency D50.9 Active confirmed 06200822 Problem NICKI (obstructive sleep apnea) G47.33 Active confirm ed 74094928 Problem DJD (degenerative joint disease), cervical M50.30 Active confirmed 22139769 Problem Wrist fracture, left, sequela S62.102S Active confi rmed 225086182 Problem Primary osteoarthritis of right knee M17.11 Act андрей confirmed 865938484210296 Problem Primary osteoarthritis of both knees M17.0 Act андрей confirmed 695727638 Problem DM2 (diabetes mellitus, type 2) E11.9 Active confi rmed 46191373 Problem Menopausal and female climacteric states N95.1 Active confirmed 918560984 Problem Anxiety F41.9 Active confirmed 34379270 ALLERGIES Allergen (clinical drug ingredient) Drug/Non Drug Allergy do cumented on EMR Reaction Allergy Type Onset Date Status tequin pruritis Non Drug Allergy Active Zocor 10 Anaphylaxis Drug Allergy Active puneet sprinkles head ache Non Drug Allergy Active Vioxx (for allergy use only) bruising Drug Allergy Active ENCOUNTERS from 1956 to 2020-11-13 Encounter Location Date Provider Diagnosis [address] [phone] [place] [address] Nov, Kimani Ann Chronic pain syndrome G89.4 IMMUNIZATIONS Vaccine Route Administration Date Status Influenza 6mo & up Fluzone IM Intramuscular Feb 13, 2013 Admi nistered SOCIAL HISTORY Tobacco Use: Social History Observation Description Date Details (start date - stop date) Never Smoker Sex Assigned At : Social History Observation Description Sex Assigned At Unknown Education: Question Answer Notes Level of Education: High School Language: Question Answer Notes Languages spoken: Sierra Leonean Voodoo: Question Answer Notes Voodoo 21 Evangelical Sexual Hx: Question Answer Notes Had sex [...] Twice a day for 30 Days Active Aspirin 81 MG 1 tablet Orally Once a day for 28 Active Nystatin Powder 986772 UNIT 1 application to affected area Externally twice daily under juan breasts for 30 day(s) Active Proventil HFA 108 (90 Base) MCG/ACT 2 puffs Inhalation 4 times a day as needed for 30 Days Active Tamsulosin HCl 0.4 MG 1 capsule Orally Once a day for 30 day(s) Active Cyclobenzaprine HCl 5 MG 1 tab Orally TID prn for 30 Days Active Cromolyn Sodium 20 MG/2ML 2 ml Inhalation Three times a day for 30 da ys Active Senna Plus 8.6-50 MG 2 tablet in the evening as n eeded Orally Once a day for 30 Days Active SITagliptin Phosphate 100 MG 1 tablet Orally Once a day for 30 Days Active Esomeprazole Magnesium 20 MG 2 capsules Orally every morning for 30 D ays Active Reclast 5 MG/100ML as directed Intravenous Active Amitriptyline HCl 25 mg 1 tab Orally at bedtime for 30 Days Active Blood Glucose Test One touch as directed SQ Twice a day DX 250 for 90 days Active Rozerem 8 mg 1 tablet at bedtime Orally Daily at bedt elke as needed for 30 Days Active Magnesium Oxide 400 (240 Mg) MG TAKE ONE TABLET BY NELSON TH @8AM and TAKE ONE TABLET @8PM for 28 Active Polyethylene Glycol - 8 gm orally in 8 oz liquid daily for 30 Days Active DULoxetine HCl 60 MG 1 capsule Orally bid for 30 Days Active Blood Glucose Test - as directed subcutaneously qid for 30 Days Oct, Active Baclofen 10 MG as directed Orally four times daily for 30 Days Active Escitalopram Oxalate 10 MG 1 tablet Orally Once a day for 30 Days Active Levothyroxine Sodium 75 MCG 1 tablet every morning on an empty stomach Orally Once a day for 30 day(s) Active Gabapentin 800 MG TAKE ONE TABLET BY MOUTH @8A M and TAKE ONE TABLET @12PM and TAKE ONE TABLET @8PM orally three times daily for 30 Days Active Ketorolac Tromethamine 0.5 % 1 drop into affected eye as needed Ophthalmic Four times a day Active Advair Diskus 250-50 MCG/DOSE 1 puff Inhalation Twice a day for 30 Da ys Active Lancets - as directed subcutaneously qid for 30 Days A ug2020 Active Escitalopram Oxalate 10 MG 1 tablet Orally Once a day for 28 Active Ergocalciferol 59292 UNIT 1 capsule Orally every 14 days for 30 Days Active Glucometer as directed DX: E11.9 Daily for 90 day(s) Au g2020 Active Folic Acid 1 MG 1 tablet Orally Once a day for 30 Days Active Gabapentin 800 MG 1 tablet Orally Three times a day for 30 Days Active Indapamide 2.5 MG 1 tablet by mouth Once a day for 30 Days Active Nitrofurantoin Macrocrystal 50 MG 1 cap Orally at bedtime Active Potassium chloride 20 meq 1 tab(s) orally Once a day for 30 Days Active Mag-Oxide 400 MG 1 tablet Orally Twice a day for 30 Days Active prednisoLONE Acetate 1 % 1 drop into affected eye Ophthalmic Twice a day Active Rosuvastatin Calcium 40 MG 1 tablet Orally Once a day for 90 day(s) Active Proventil HFA 108 (90 Base) MCG/ACT 2 puffs Inhalation 4 times a day as needed for 30 Days Active Voltaren 1 % as directed Transdermal Four times a day as needed to posterior knee for 30 Days Active PROCEDURES No Information RESULTS No Results [...] very mild right carpal tunnel syndrome//06/2013 - RF/CCP/NETTE//11/2015 ML DJD, ricardo L5/S1 s compression Medical [...] 2010 normal nerve conduction studies bilateral extremities-[facility] Medical History anemia, iron deficiency [...] by Graciela Medical History R PE-dx at [facility]-CT A chest c "small pulmonary emboli to RU PA with areas of parenchymal disease suggestive of pulmonary infarction"- started in Xarelto 15 BID Medical History MRSA UTI-04/08/17 UCX >100K Medical History R distal femur comminuted fr acture sp mechanical fall [facility] History laparoscopic cholecystectomy-Dr. Courtney January [...] trograde approach [address] [facility] [facility]ization History hyperkalemia 9.3 with [...] - serial EK/T-I, telemetry 11/20- Hospitalization History Stfgzh-ehsh-ly respiratory f ailure c desaturation to Sa)2 20% from same day surgery for R bunion surgery, then rehab at [facility] 06/25- Hospitalization History frequent falls-favoring 2 op iate overuse/misuse-CT cervical/head NAD/xray thoracic, LS, L hip NAD, stable CBCD, CMP, CIP/T-I, - telemetry, UDS + morphine, oxycodone; unresponsive episode requiring Narcan 0.8 to reverse 04/08-06/22 Hospitalization History mechanical fall sp R femur s p IM nail placement by Dr. Gao, tx [facility] 02/19- Hospitalization History P. mirabilis [...] Notes Treatment Notes Treatm ent Clinical Notes Nov, Chronic pain syndrome (ICD-10 - G89.4) PLAN OF TREATMENT Medication Medication Name Sig Start Date Stop Date Folic Acid 1 MG 1 tablet Orally Once a day for 30 Days Lancets - as directed subcutaneously qid for 30 Days 2020 Senna Plus 8.6-50 MG 2 tablet in the evening as n eeded Orally Once a day for 30 Days Reclast 5 MG/100ML as directed Intravenous Polyethylene Glycol - 8 gm orally in 8 oz liquid daily for 30 Da ys Gabapentin 800 MG 1 tablet Orally Three times a day for 30 Days Baclofen 10 MG as directed Orally four times daily for 30 Days Nystatin Powder 969977 UNIT 1 application to affected area Externally twice daily under juan breasts for 30 day(s) Cyclobenzaprine HCl 5 MG 1 tab Orally TID prn for 30 Days SITagliptin Phosphate 100 MG 1 tablet Orally Once a day for 30 D ays Amitriptyline HCl 25 mg 1 tab Orally at bedtime for 30 Days Proventil HFA 108 (90 Base) MCG/ACT 2 puffs Inhalation 4 times a day as needed for 30 Days Voltaren 1 % as directed Transdermal Four times a day as needed to posterior knee for 30 Days Mag-Oxide 400 MG 1 tablet Orally Twice a day for 30 Days Rosuvastatin Calcium 40 MG 1 tablet Orally Once a day for 90 day (s) Nitrofurantoin Macrocrystal 50 MG 1 cap Orally at bedtime Rozerem 8 mg 1 tablet at bedtime Orally Daily at bedt elke as needed for 30 Days Advair Diskus 250-50 MCG/DOSE 1 puff Inhalation Twice a day for 30 Days DULoxetine HCl 60 MG 1 capsule Orally bid for 30 Days Blood Glucose Test - as directed subcutaneously qid for 30 Days Oct, Escitalopram Oxalate 10 MG 1 tablet Orally Once a day for 30 Day s Potassium chloride 20 meq 1 tab(s) orally Once a day for 30 Days Indapamide 2.5 MG 1 tablet by mouth Once a day for 30 Days Ergocalciferol 29140 UNIT 1 capsule Orally every 14 days for 30 Days Levothyroxine Sodium 75 MCG 1 tablet every morning on an empty stomach Orally Once a day for 30 day(s) Proventil HFA 108 (90 Base) MCG/ACT 2 puffs Inhalation 4 times a day as needed for 30 Days Esomeprazole Magnesium 20 MG 2 capsules Orally every morning for 30 Days metFORMIN HCl 850 mg 1 tablet by mouth Twice a day for 30 Days Glucometer as directed DX: E11.9 Daily for 90 day(s) Oct Cromolyn Sodium 20 MG/2ML 2 ml Inhalation Three times a day for 30 days Next Appt Details Provider Name:Kimani Ann, 2020-11-14 0 1:30:00 PM, [address] [facility], , [place], [address], Insurance Providers Payer Name Payer Address Payer Phone Insured Name Patient Relati onship to Insured Coverage Start Date Coverage End Date [facility] COMMUNITY PLAN [facility] [address] [facility] [phone] CASSIE ARTHUR self
--- OUTSIDE RECORDS SUMMARY | 2020-12-25 16:49 | CCD ---
Author Author [facility] Organization [facility] Address Unknown Phone Unavailable Care Team Providers Care Residency Director Name Role Phone Kimani Ann Unavailable PROBLEMS Type Condition ICD9-CM Code [id number] Code Onset Dates Condition S tatus W/U Status Risk SNOMED Code Notes Problem Depression F32.9 Active confirmed 95570818 Problem Insomnia G47.00 Active confirmed 231646877 Problem Breast cancer screening Z12.39 Active confirmed 009074772 Problem Gastroesophageal reflux disease, esophagitis pre sence not specified K21.9 Active confirmed 100555416 Problem Folic acid deficiency E53.8 Active confirmed 890683700 Problem NICKI (obstructive sleep apnea) G47.33 Active confirm ed 66905993 Problem Osteoporosis M81.0 Active confirmed 2794983 6 Problem Tibial plateau fracture, left S82.142A Active confi rmed 15146297 Problem Vitamin D deficiency E55.9 Active confirmed 83574745 Problem Oral candidiasis B37.0 Active confirmed 797 94790 Problem Hypothyroid E03.9 Active confirmed 31675097 Problem Fibromyalgia M79.7 Active confirmed 8133458 05 Problem Hypertension I10 Active confirmed 0434340 3 Problem Other disturbances of skin sensation R20.8 Act андрей confirmed 89771345 Problem Hyperalgesia R20.8 Active confirmed 6120009 8 Problem Hypothyroidism, unspecified E03.9 Active confirmed 70731471 Problem Ataxia R27.0 Active confirmed 25057614 Problem Mixed hyperlipidemia E78.2 Active confirmed 417414746 Problem Asthma, severe persistent J45.50 Active confirmed 635112807 Problem Essential tremor G25.0 Active confirmed 609 863655 Problem Hyperlipidemia E78.5 Active confirmed 39955 004 Problem Diabetes mellitus without me ntion of complication, type II or unspecified type, not stated as uncontrolled 250.00 Activ e confirmed 532907278 Problem Diastolic CHF I50.30 Active confirmed 747494 008 Problem Chronic pain syndrome G89.4 Active confirmed 768448162 Problem Recurrent urinary tract infection N39.0 Active confirmed 838074401 Problem Constipation, chronic K59.09 Active confirmed 493693806 Problem Impingement syndrome of both shoulders M75.41 A ctive confirmed 974772827 Problem 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 Active confirmed 4 55967858 Problem Falls frequently R29.6 Active confirmed 279 218731 Problem Primary osteoarthritis of right knee M17.11 Act андрей confirmed 389009774804227 Problem Anemia, iron deficiency D50.9 Active confirmed 71711124 Problem Wrist fracture, left, sequela S62.102S Active confi rmed 636574684 Problem Recurrent epistaxis R04.0 Active confirmed 612986487 Problem Colon polyp K63.5 Active confirmed 19016301 Problem DM2 (diabetes mellitus, type 2) E11.9 Active confi rmed 22056830 Problem Pulmonary embolism I26.99 Active confirmed 5 3189683 Problem DJD (degenerative joint disease), cervical M50.30 Active confirmed 17628318 Problem Primary osteoarthritis of both knees M17.0 Act андрей confirmed 143924651 Problem Menopausal and female climacteric states N95.1 Active confirmed 303999538 Problem DJD (degenerative joint disease), lumbar M47.816 Active confirmed 521938024 Problem Anxiety F41.9 Active confirmed 55876073 Problem Constipation, unspecified constipation type K59.00 Active confirmed 46456438 ALLERGIES Allergen (clinical drug ingredient) Drug/Non Drug Allergy do cumented on EMR Reaction Allergy Type Onset Date Status tequin pruritis Non Drug Allergy Active Zocor 10 Anaphylaxis Drug Allergy Active puneet sprinkles head ache Non Drug Allergy Active Vioxx (for allergy use only) bruising Drug Allergy Active ENCOUNTERS from 1956 to 2020-11-17 Encounter Location Date Provider Diagnosis [address] [phone] [place] [address] Nov, Kimani Ann IMMUNIZATIONS Vaccine Route Administration [...] School Language: Question Answer Notes Languages spoken: Kinyarwanda Advent: Question Answer Notes Advent 21 Hoahaoism Sexual Hx: Question Answer Notes Had sex [...] for 30 D ays Active Nystatin Powder 519751 UNIT 1 application to affected area Externally [...] as needed for 30 Days Active Ergocalciferol 95359 UNIT 1 capsule Orally every 14 days [...] Information RESULTS No Results REASON FOR VISIT No Information MEDICAL (GENERAL) HISTORY Type Description Date Medical [...] instability-June 2010 normal nerve conduction studies bilateral extremities-[facility] Medical History anemia, iron deficiency [...] by Graciela Medical History R PE-dx at [facility] [place]-CT A chest c "small pulmonary emboli to RU PA with areas of parenchymal disease suggestive of pulmonary infarction"- started in Xarelto 15 BID Medical History MRSA UTI-04/08/17 UCX >100K Medical History R distal femur comminuted fr acture sp mechanical fall sp [facility] [facility] History [facility] cholecyst[facility]-Dr. Courtney [...] bun ion surgery c bone graft/pin- Dr.Frederick Zambrano-[facility] 06/25/16 Surgical History IM nail fo R distal femur re trograde approach [address] [facility] Surgical History left and right cataract removal- Dr. Miranda oms-[facility] 09/24 10/25 Hospitalization History hyperkalemia 9.3 [...] - serial EK/T-I, telemetry 11/20- Hospitalization History Uoesye-idyd-uo respiratory f ailure c desaturation to Sa)2 20% from same day surgery for R bunion surgery, then rehab at [facility] 06/25- Hospitalization History frequent falls-favoring 2 op iate overuse/misuse-CT cervical/head NAD/xray thoracic, LS, L hip NAD, stable CBCD, CMP, CIP/T-I, - telemetry, UDS + morphine, oxycodone; unresponsive episode requiring Narcan 0.8 to reverse 04/08-06/22 Hospitalization History mechanical fall sp R femur s p IM nail placement by Dr. Gao, tx [facility] 02/19- Hospitalization History P. mirabilis UTI [...] Once a day for 30 day(s) Ergocalciferol 03143 UNIT 1 capsule Orally every 14 days [...] Provider Name:Kimani Ann, 2021-03-20 1 1:45:00 AM, [address] [place] [address], , [place], [address], Insurance Providers Payer Name Payer Address Payer Phone Insured Name Patient Relati onship to Insured Coverage Start Date Coverage End Date [facility] COMMUNITY PLAN [facility] [address] [facility] [phone] CASSIE ARTHUR self
--- OUTSIDE RECORDS SUMMARY | 2020-12-25 16:49 | CCD ---
Author Author [facility] Organization [facility] Address Unknown Phone Unavailable Care Team Providers Care Construction Manager Name Role Phone Kimani Ann Unavailable PROBLEMS Type Condition ICD9-CM Code OVK86-VD Code Onset Dates Condition S tatus W/U Status Risk SNOMED Code Notes Problem Depression F32.9 Active confirmed 46573561 Problem Insomnia G47.00 Active confirmed 010189760 Problem Breast cancer screening Z12.39 Active confirmed 233022198 Problem Gastroesophageal reflux disease, esophagitis pre sence not specified K21.9 Active confirmed 698990323 Problem Folic acid deficiency E53.8 Active confirmed 004294569 Problem NICKI (obstructive sleep apnea) G47.33 Active confirm ed 06371010 Problem Osteoporosis M81.0 Active confirmed 1671493 6 Problem Tibial plateau fracture, left S82.142A Active confi rmed 29836588 Problem Vitamin D deficiency E55.9 Active confirmed 42762528 Problem Oral candidiasis B37.0 Active confirmed 797 32614 Problem Hypothyroid E03.9 Active confirmed 26206173 Problem Fibromyalgia M79.7 Active confirmed 3359978 05 Problem Hypertension I10 Active confirmed 7105472 3 Problem Other disturbances of skin sensation R20.8 Act андрей confirmed 90828471 Problem Hyperalgesia R20.8 Active confirmed 9488729 8 Problem Hypothyroidism, unspecified E03.9 Active confirmed 25149300 Problem Ataxia R27.0 Active confirmed 06873739 Problem Mixed hyperlipidemia E78.2 Active confirmed 552437974 Problem Asthma, severe persistent J45.50 Active confirmed 618479053 Problem Essential tremor G25.0 Active confirmed 609 035709 Problem Hyperlipidemia E78.5 Active confirmed 89507 004 Problem Diabetes mellitus without me ntion of complication, type II or unspecified type, not stated as uncontrolled 250.00 Activ e confirmed 724293752 Problem Diastolic CHF I50.30 Active confirmed 991062 008 Problem Chronic pain syndrome G89.4 Active confirmed 701075823 Problem Recurrent urinary tract infection N39.0 Active confirmed 504577292 Problem Constipation, chronic K59.09 Active confirmed 408040055 Problem Impingement syndrome of both shoulders M75.41 A ctive confirmed 553477266 Problem 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 Active confirmed 4 70996697 Problem Falls frequently R29.6 Active confirmed 279 551851 Problem Primary osteoarthritis of right knee M17.11 Act андрей confirmed 422221787426921 Problem Anemia, iron deficiency D50.9 Active confirmed 56030859 Problem Wrist fracture, left, sequela S62.102S Active confi rmed 625187230 Problem Recurrent epistaxis R04.0 Active confirmed 227150891 Problem Colon polyp K63.5 Active confirmed 89557138 Problem DM2 (diabetes mellitus, type 2) E11.9 Active confi rmed 94382983 Problem Pulmonary embolism I26.99 Active confirmed 5 7752602 Problem DJD (degenerative joint disease), cervical M50.30 Active confirmed 60032045 Problem Primary osteoarthritis of both knees M17.0 Act андрей confirmed 482182909 Problem Menopausal and female climacteric states N95.1 Active confirmed 815531069 Problem DJD (degenerative joint disease), lumbar M47.816 Active confirmed 554960176 Problem Anxiety F41.9 Active confirmed 88852944 Problem Constipation, unspecified constipation type K59.00 Active confirmed 41122077 ALLERGIES Allergen (clinical drug ingredient) Drug/Non Drug Allergy do cumented on EMR Reaction Allergy Type Onset Date Status tequin pruritis Non Drug Allergy Active Zocor 10 Anaphylaxis Drug Allergy Active puneet sprinkles head ache Non Drug Allergy Active Vioxx (for allergy use only) bruising Drug Allergy Active ENCOUNTERS from 1956 to 2020-11-18 Encounter Location Date Provider Diagnosis [address] [phone] [place] [address] Nov, Kimani Ann IMMUNIZATIONS Vaccine Route Administration [...] School Language: Question Answer Notes Languages spoken: Hungarian Mandaeism: Question Answer Notes Mandaeism 21 Congregational Sexual Hx: Question Answer Notes Had sex [...] for 30 D ays Active Nystatin Powder 765057 UNIT 1 application to affected area Externally [...] as needed for 30 Days Active Ergocalciferol 71294 UNIT 1 capsule Orally every 14 days [...] Information RESULTS No Results REASON FOR VISIT cyclo MEDICAL (GENERAL) HISTORY Type Description Date Medical [...] instability-June 2010 normal nerve conduction studies bilateral extremities-[facility] Medical History anemia, iron deficiency Medical History [...] by Graciela Medical History R PE-dx at [facility]-CT A chest c "small pulmonary emboli to RU PA with areas of parenchymal disease suggestive of pulmonary infarction"- started in Xarelto 15 BID Medical History MRSA UTI-04/08/17 UCX >100K Medical History R distal femur comminuted fr acture sp mechanical fall sp [facility] History laparoscopic cholecystectomy-Dr. Courtney January [...] bun ion surgery c bone graft/pin- Dr.Frederick Zambrano-[facility] 06/25/16 Surgical History IM nail fo R distal femur re trograde approach [address] [facility] Surgical History left and right cataract removal- [facility]. Miranda oms-[facility] 09/24 10/25 Hospitalization History hyperkalemia [...] - serial EK/T-I, telemetry 11/20- Hospitalization History Pkujra-mked-sv respiratory f ailure c desaturation to Sa)2 20% from same day surgery for R bunion surgery, then rehab at [facility] 06/25- Hospitalization History frequent falls-favoring 2 op iate overuse/misuse-CT cervical/head NAD/xray thoracic, LS, L hip NAD, stable CBCD, CMP, CIP/T-I, - telemetry, UDS + morphine, oxycodone; unresponsive episode requiring Narcan 0.8 to reverse 04/08-06/22 Hospitalization History mechanical fall sp R femur s p IM nail placement by Dr. Gao, tx [facility] 02/19- Hospitalization History P. mirabilis UTI [...] Once a day for 30 day(s) Ergocalciferol 34201 UNIT 1 capsule Orally every 14 days [...] Provider Name:Kimani Ann, 2021-03-20 1 1:45:00 AM, [address] [place] [address], , [place], [address], Insurance Providers Payer Name Payer Address Payer Phone Insured Name Patient Relati onship to Insured Coverage Start Date Coverage End Date [facility] COMMUNITY PLAN [facility] [address] [facility] [address] CASSIE ARTHUR self
--- OUTSIDE RECORDS SUMMARY | 2020-12-25 16:49 | CCD ---
Author Author [facility] Organization [facility] Address Unknown Phone Unavailable Care Team Providers Care Motorcycle Subassembly Repairer Name Role Phone Kimani Ann Unavailable PROBLEMS Type Condition ICD9-CM Code AXF60-QV Code Onset Dates Condition S tatus W/U Status Risk SNOMED Code Notes Problem Depression F32.9 Active confirmed 56945212 Problem Insomnia G47.00 Active confirmed 408197003 Problem Breast cancer screening Z12.39 Active confirmed 178351629 Problem Gastroesophageal reflux disease, esophagitis pre sence not specified K21.9 Active confirmed 665294095 Problem Folic acid deficiency E53.8 Active confirmed 688906750 Problem NICKI (obstructive sleep apnea) G47.33 Active confirm ed 98431660 Problem Osteoporosis M81.0 Active confirmed 8775923 6 Problem Tibial plateau fracture, left S82.142A Active confi rmed 76239457 Problem Vitamin D deficiency E55.9 Active confirmed 75782768 Problem Oral candidiasis B37.0 Active confirmed 797 37120 Problem Hypothyroid E03.9 Active confirmed 47863575 Problem Fibromyalgia M79.7 Active confirmed 3465466 05 Problem Hypertension I10 Active confirmed 4208445 3 Problem Other disturbances of skin sensation R20.8 Act андрей confirmed 29631827 Problem Hyperalgesia R20.8 Active confirmed 5544559 8 Problem Hypothyroidism, unspecified E03.9 Active confirmed 05834134 Problem Ataxia R27.0 Active confirmed 69458206 Problem Mixed hyperlipidemia E78.2 Active confirmed 808874959 Problem Asthma, severe persistent J45.50 Active confirmed 043823444 Problem Essential tremor G25.0 Active confirmed 609 834082 Problem Hyperlipidemia E78.5 Active confirmed 71619 004 Problem Diabetes mellitus without me ntion of complication, type II or unspecified type, not stated as uncontrolled 250.00 Activ e confirmed 057370838 Problem Diastolic CHF I50.30 Active confirmed 044465 008 Problem Chronic pain syndrome G89.4 Active confirmed 766250461 Problem Recurrent urinary tract infection N39.0 Active confirmed 364529720 Problem Constipation, chronic K59.09 Active confirmed 147404944 Problem Impingement syndrome of both shoulders M75.41 A ctive confirmed 866170197 Problem 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 Active confirmed 4 17321303 Problem Falls frequently R29.6 Active confirmed 279 884055 Problem Primary osteoarthritis of right knee M17.11 Act андрей confirmed 023443165967724 Problem Anemia, iron deficiency D50.9 Active confirmed 01095413 Problem Wrist fracture, left, sequela S62.102S Active confi rmed 041869824 Problem Recurrent epistaxis R04.0 Active confirmed 654514160 Problem Colon polyp K63.5 Active confirmed 76336193 Problem DM2 (diabetes mellitus, type 2) E11.9 Active confi rmed 25708040 Problem Pulmonary embolism I26.99 Active confirmed 5 3042847 Problem DJD (degenerative joint disease), cervical M50.30 Active confirmed 39822656 Problem Primary osteoarthritis of both knees M17.0 Act андрей confirmed 558661813 Problem Menopausal and female climacteric states N95.1 Active confirmed 307075300 Problem DJD (degenerative joint disease), lumbar M47.816 Active confirmed 321181313 Problem Anxiety F41.9 Active confirmed 09204606 Problem Constipation, unspecified constipation type K59.00 Active confirmed 08431541 ALLERGIES Allergen (clinical drug ingredient) Drug/Non Drug Allergy do cumented on EMR Reaction Allergy Type Onset Date Status tequin pruritis Non Drug Allergy Active Zocor 10 Anaphylaxis Drug Allergy Active puneet sprinkles head ache Non Drug Allergy Active Vioxx (for allergy use only) bruising Drug Allergy Active ENCOUNTERS from 1956 to 2020-11-21 Encounter Location Date Provider Diagnosis [address] [facility] [phone] [place] [address] Nov, Kimani Ann IMMUNIZATIONS Vaccine Route Administration [...] School Language: Question Answer Notes Languages spoken: Urdu Pentecostal: Question Answer Notes Pentecostal 21 Religious Sexual Hx: Question Answer Notes Had sex [...] for 30 D ays Active Nystatin Powder 305656 UNIT 1 application to affected area Externally [...] as needed for 30 Days Active Ergocalciferol 80489 UNIT 1 capsule Orally every 14 days [...] instability-June 2010 normal nerve conduction studies bilateral extremities-[facility] Medical History anemia, iron deficiency [...] mechanical fall sp [facility] History laparoscopic cholecystectomy-Dr. Courtney January 2007 [...] bun ion surgery c bone graft/pin- [facility]Frederick [facility] 06/25/16 Surgical History IM nail fo R distal femur re trograde approach [address] [facility] Surgical History left and right cataract removal- [facility]. Miranda oms-[facility] 09/24 10/25 Hospitalization History hyperkalemia 9.3 [...] - serial EK/T-I, telemetry 11/20- Hospitalization History Ifsvlk-ahks-wb respiratory f ailure c desaturation to Sa)2 [...] IM nail placement by Dr. Gao, tx [facility] 02/19- Hospitalization History P. mirabilis UTI [...] Once a day for 30 day(s) Ergocalciferol 32809 UNIT 1 capsule Orally every 14 days [...] Provider Name:Kimani Ann, 2021-03-20 1 1:45:00 AM, [address] [place] [address], , [place], [address], Insurance Providers Payer Name Payer Address Payer Phone Insured Name Patient Relati onship to Insured Coverage Start Date Coverage End Date [facility] COMMUNITY PLAN [facility] [address] [facility] [phone] CASSIE ARTHUR self
--- OUTSIDE RECORDS SUMMARY | 2020-12-25 16:49 | CCD ---
Author Author [facility] Organization 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 Role Phone Kimani Ann Unavailable PROBLEMS Type Condition ICD9-CM Code JRU16-GI Code Onset Dates Condition S tatus W/U Status Risk SNOMED Code Notes Problem Depression F32.9 Active confirmed 43740549 Problem Insomnia G47.00 Active confirmed 309790843 Problem Breast cancer screening Z12.39 Active confirmed 609850499 Problem Gastroesophageal reflux disease, esophagitis pre sence not specified K21.9 Active confirmed 334450720 Problem Folic acid deficiency E53.8 Active confirmed 613215190 Problem NICKI (obstructive sleep apnea) G47.33 Active confirm ed 95388293 Problem Osteoporosis M81.0 Active confirmed 0253168 6 Problem Tibial plateau fracture, left S82.142A Active confi rmed 44903496 Problem Vitamin D deficiency E55.9 Active confirmed 44355507 Problem Oral candidiasis B37.0 Active confirmed 797 57607 Problem Hypothyroid E03.9 Active confirmed 76688227 Problem Fibromyalgia M79.7 Active confirmed 5555386 05 Problem Hypertension I10 Active confirmed 2510974 3 Problem Other disturbances of skin sensation R20.8 Act андрей confirmed 61608969 Problem Hyperalgesia R20.8 Active confirmed 3715867 8 Problem Hypothyroidism, unspecified E03.9 Active confirmed 04637231 Problem Ataxia R27.0 Active confirmed 58430135 Problem Mixed hyperlipidemia E78.2 Active confirmed 368435093 Problem Asthma, severe persistent J45.50 Active confirmed 719933705 Problem Essential tremor G25.0 Active confirmed 609 213493 Problem Hyperlipidemia E78.5 Active confirmed 19601 004 Problem Diabetes mellitus without me ntion of complication, type II or unspecified type, not stated as uncontrolled 250.00 Activ e confirmed 828351221 Problem Diastolic CHF I50.30 Active confirmed 097261 008 Problem Chronic pain syndrome G89.4 Active confirmed 440792282 Problem Recurrent urinary tract infection N39.0 Active confirmed 272325947 Problem Constipation, chronic K59.09 Active confirmed 386018743 Problem Impingement syndrome of both shoulders M75.41 A ctive confirmed 327206520 Problem 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 Active confirmed 4 55335799 Problem Falls frequently R29.6 Active confirmed 279 833832 Problem Primary osteoarthritis of right knee M17.11 Act андрей confirmed [id number] Problem Anemia, iron deficiency D50.9 Active confirmed 55615433 Problem Wrist fracture, left, sequela S62.102S Active confi rmed 030346720 Problem Recurrent epistaxis R04.0 Active confirmed 234960205 Problem Colon polyp K63.5 Active confirmed 97309676 Problem DM2 (diabetes mellitus, type 2) E11.9 Active confi rmed 66493745 Problem Pulmonary embolism I26.99 Active confirmed 5 4253021 Problem DJD (degenerative joint disease), cervical M50.30 Active confirmed 75628338 Problem Primary osteoarthritis of both knees M17.0 Act андрей confirmed 881998591 Problem Menopausal and female climacteric states N95.1 Active confirmed 119634352 Problem DJD (degenerative joint disease), lumbar M47.816 Active confirmed 428426159 Problem Anxiety F41.9 Active confirmed 13509536 Problem Constipation, unspecified constipation type K59.00 Active confirmed 46535226 ALLERGIES Allergen (clinical drug ingredient) Drug/Non Drug Allergy do cumented on EMR Reaction Allergy Type Onset Date Status tequin pruritis Non Drug Allergy Active Zocor 10 Anaphylaxis Drug Allergy Active puneet sprinkles head ache Non Drug Allergy Active Vioxx (for allergy use only) bruising Drug Allergy Active ENCOUNTERS from 1955 to 2020-11-15 Encounter Location Date Provider Diagnosis [address] [phone] [place] [address] 10 Nov, 2020 Kimani Ann Preoperative clearance Z01.8 18 ; Recurrent epistaxis R04.0 ; Pulmonary embolism I26.99 ; Hypothyroid E03.9 ; Osteoporosis M81.0 ; Constipation, chronic K59.09 ; Anemia, iron deficiency D50.9 ; DM2 (diabetes mellitus, type 2) E11.9 ; Recurrent urinary tract infection N39.0 ; Chronic pain syndrome G89.4 ; Diastolic CHF I50.30 ; Primary osteoarthritis of both knees M17.0 ; Closed right hip fracture S72.001A ; 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 ; Renal cyst N28.1 ; Oral candidiasis B37.0 ; DJD (degenerative joint disease), lumbar M47.816 ; Tibial plateau fracture, left S82.142A ; Colon polyp K63.5 ; Essential tremor G25.0 ; Asthma, severe persistent J45.50 ; NICKI (obstructive sleep apnea) G47.33 ; Hyperalgesia R20.8 ; Ataxia R27.0 ; DJD (degenerative joint disease), cervical M50.30 ; Gross hematuria R31.0 ; Hyperlipidemia E78.5 ; Gastroesophageal reflux disease, esophagitis presence not specified K21.9 ; Impingement syndrome of both shoulders M75.41 ; Insomnia G47.00 ; Depression F32.9 ; Breast cancer screening Z12.39 ; Vitamin D deficiency E55.9 ; Hypertension I10 ; Folic acid deficiency E53.8 and Fibromyalgia M79.7 IMMUNIZATIONS Vaccine Route Administration Date Status Influenza 6mo & up Fluzone IM Intramuscular Feb 13, 2013 Admi nistered SOCIAL HISTORY Tobacco Use: Social History Observation Description Date Details (start date - stop date) Never Smoker Sex Assigned At : Social History Observation Description Sex Assigned At Unknown Education: Question Answer Notes Level of Education: High School Language: Question Answer Notes Languages spoken: Kenyan Sabianism: Question Answer Notes Sabianism 21 Tenriism Sexual Hx: Question Answer Notes Had sex in the last 12 months (vaginal, oral, or anal)? No Have you ever had an STD? No Alcohol Screening: Question Answer Notes Did you have a drink containing alcohol in the past year? No Points 0 Interpretation Negative Tobacco Use: Question Answer Notes Are you a: never smoker REASON FOR REFERRAL No Information VITAL SIGNS Weight 221.8 lbs Nov, Weight-kg 100.61 kg Nov, Height 66 in Nov, BMI 35.80 kg/m2 Nov, Heart Rate 88 /min Nov, Respiratory Rate 18 /min Nov, Temperature 96.9 degrees Fahrenheit Nov, Oximetry 97% Nov, Blood pressure systolic 122 mm Hg Nov, Blood pressure diastolic 78 mm Hg Nov, MEDICATIONS Medication SIG (Take, Route, Frequency, Duration) Notes Start Da te End Date Status Senna Plus 8.6-50 MG 2 tablet in the evening as n eeded Orally Once a day for 30 Days Active Lancets - as directed subcutaneously qid for 30 Days 30 2020 Active Cromolyn Sodium 20 MG/2ML 2 ml Inhalation Three times a day for 30 da ys Active Ketorolac Tromethamine 0.5 % 1 drop into affected eye as needed Ophthalmic Four times a day Active Baclofen 10 MG as directed Orally four times daily for 30 Days Active Proventil HFA 108 (90 Base) MCG/ACT 2 puffs Inhalation 4 times a day as needed for 30 Days Active metFORMIN HCl 850 mg 1 tablet by mouth Twice a day for 30 Days Active Blood Glucose Test - as directed subcutaneously qid for 30 Days Oct, Active Rosuvastatin Calcium 40 MG 1 tablet Orally Once a day for 90 day(s) Active prednisoLONE Acetate 1 % 1 drop into affected eye Ophthalmic Twice a day Active Folic Acid 1 MG 1 tablet Orally Once a day for 30 Days Active Mupirocin 2 % 1 application to each nares R intranasal septum TID for 30 Days Nov, Active Nystatin Powder 286985 UNIT 1 application to affected area Externally twice daily under juan breasts for 30 day(s) Active Voltaren 1 % as directed Transdermal Four times a day as needed to posterior knee for 30 Days Active Proventil HFA 108 (90 Base) MCG/ACT 2 puffs Inhalation 4 times a day as needed for 30 Days Active Potassium chloride 20 meq 1 tab(s) orally Once a day for 30 Days Active Magnesium Oxide 400 (240 Mg) MG TAKE ONE TABLET BY NELSON TH @8AM and TAKE ONE TABLET @8PM for 28 Active Injectafer 750 MG/15ML as directed Intravenous Nov, Active Indapamide 2.5 MG 1 tablet by mouth Once a day for 30 Days Active Esomeprazole Magnesium 20 MG 2 capsules Orally every morning for 30 D ays Active Amitriptyline HCl 25 mg 1 tab [...] directed DX: E11.9 Daily for 90 day(s) , 2020 Active Mag-Oxide 400 MG 1 tablet Orally Twice a day for 30 Days Active Blood Glucose Test One touch as directed SQ Twice a day DX 250 for 90 days Active Nitrofurantoin Macrocrystal 50 MG 1 cap Orally at bedtime Active Rozerem 8 mg 1 tablet at bedtime Orally Daily at bedt elke as needed for 30 Days Active Ergocalciferol 81811 UNIT 1 capsule Orally every 14 days for 30 Days Active Gabapentin 800 MG 1 tablet Orally Three times a day for 30 Days Active SITagliptin Phosphate 100 MG 1 tablet Orally Once a day for 30 Days Active DULoxetine HCl 60 MG 1 capsule Orally bid for 30 Days Active Reclast 5 MG/100ML as directed Intravenous Active PROCEDURES from 1955 to 2020-11-15 Procedure Date Ordered Result Body Site ELECTROCARDIOGRAM, COMPLETE EKG 2020-11-14 N/A RESULTS Component Value Reference Range NT-PRO BNP Reviewed date:11/14/2020 17:42:23 Interpretation: Performing Lab:[facility] [address] [facility] [address] , ,[place] [address] NT-PRO BNP 57 <125 CBC with Differential Reviewed date:11/14/2020 17:44:18 Interpretation: Performing Lab:[facility] [address] [facility] [address] , ,[place] [address] WHITE BLOOD COUNT 8.1 4.0-10.0 RED BLOOD COUNT 3.63 4.00-5.40 HEMOGLOBIN 9.5 12.0-15.5 HEMATOCRIT 31.3 36.0-47.0 MEAN CORPUSCULAR VOLUME 86.2 80.0-96.0 MEAN CORPUSCULAR HEMOGLOBIN 26.2 27.0-33.0 MEAN CORPUSCULAR HGB CONC 30.4 32.0-36.5 RED CELL DISTRIBUTION WIDTH 15.8 11.5-14.5 PLATELET COUNT, AUTOMATED 342 150-450 NEUTROPHILS % 51.9 36.0-66.0 LYMPH % 39.4 24.0-44.0 MONO % 5.0 2.0-8.0 EOS % 2.4 0.0-3.0 BASO % 0.9 0.0-1.0 NEUTROPHILS # 4.2 1.5-8.5 LYMPH # 3.2 1.5-5.0 MONO # 0.4 0.0-0.8 EOS # 0.2 0.0-0.5 BASO # 0.1 0.0-0.2 Comprehensive Metabolic Profile (CMP) Reviewed date:11/14/2020 17:42:28 Interpretation: Performing Lab:[facility] [address] [address] , ,[place] [address] GLUCOSE, FASTING 64 70-100 BLOOD UREA NITROGEN 15 7-18 CREATININE FOR GFR 0.72 0.55-1.30 GLOMERULAR FILTRATION RATE > 60.0 >45 SODIUM LEVEL 137 136-145 POTASSIUM SERUM 4.3 3.5-5.1 CHLORIDE LEVEL 102 98-107 CARBON DIOXIDE LEVEL 28 21-32 CALCIUM LEVEL 8.8 8.8-10.2 AST/SGOT 21 7-37 ALT/SGPT 30 12-78 ALKALINE PHOSPHATASE 95 45-117 BILIRUBIN,TOTAL 0.9 0.2-1.0 TOTAL PROTEIN 6.8 6.4-8.2 ALBUMIN 3.3 3.2-5.2 ALBUMIN/GLOBULIN RATIO 0.9 1.2-2.2 FERRITIN Reviewed date:11/14/2020 17:42:20 Interpretation: Performing Lab:[facility] [address] [address] , ,[place] [address] FERRITIN 8 8-252 FREE T4 & TSH PANEL Reviewed date:11/14/2020 17:42:30 Interpretation: Performing Lab:[facility] [address] [facility] [id number] , ,[place] [address] THYROID STIMULATING HORMONE 1.320 0.358-3.740 FREE T4 1.10 0.76-1.46 MAGNESIUM LEVEL Reviewed date:11/14/2020 17:42:44 Interpretation: Performing Lab:[facility] [address] [id number] , ,[place] [address] MAGNESIUM LEVEL 2.0 1.8-2.4 PT & APTT Reviewed date:11/14/2020 17:42:46 Interpretation: Performing Lab:[facility] [address] [id number] , ,[place] [address] PROTHROMBIN TIME 12.5 12.7-14.5 INR 0.89 PARTIAL THROMBOPLASTIN TIME 27.5 25.9-37.0 UA URINALYSIS Reviewed date:11/14/2020 17:42:48 Interpretation: Performing Lab:[facility] [address] [id number] , ,[place] [address] REASON FOR VISIT Pre op clearance for colonoscopy and endscopy-Dr. Varela-12/01/2003-MQM-Tszasim, carmen @ [phone] fax # [phone] DX: D50.9, Z86.010, Z80.0,K21.9 MEDICAL (GENERAL) HISTORY Type Description Date Medical History asthma, severe persistent-fo llows with Dr. Wadsworth-10/2015 FEV1 2.0L (69%)/ratio 80 %//02/[address] chest PE protocol Medical History thoracolumbar DJD, status po st L5/S1 laminectomy-06/2015 MRI lumbar spine showing L5/S1 laminectomy changes c L4-S1 diffuse bulges abutting thecal sac, no changes c/w 04/2014 and January 2011 NCS Melchor-R C8 subacute radiculopathy, mild [...] by Graciela Medical History R PE-dx at [facility]-CT A chest c "small pulmonary emboli to RU PA with areas of parenchymal disease suggestive of pulmonary infarction"- started in Xarelto 15 BID Medical History MRSA UTI-04/08/17 UCX >100K Medical History R distal femur comminuted fr acture sp mechanical fall sp [facility] laparoscopic cholecystectomy-Dr. Courtney January [...] trograde approach [address] [facility] Surgical History left and right cataract removal- Dr. Miranda oms-[facility] 09/24 10/25 Hospitalization History hyperkalemia 9.3 [...] - serial EK/T-I, telemetry 11/20- Hospitalization History Vflgji-xejh-wh respiratory f ailure c desaturation to Sa)2 20% from same day surgery for R bunion surgery, then rehab at [facility] 06/25- Hospitalization History frequent falls-favoring 2 [...] Treatment Notes Treatm ent Clinical Notes Nov, Preoperative clearance (ICD-10 - Z01.818) On 11/14/20 the patient had a stable CBCD and CMP. On 11/14/20 the patient's EKG revealed normal sinus rhythm at 81 beats per minute c IVCD, no hypertrophy, normal axis and anterior repolarization abnormality similar to 06/18/16 EKG. On the AM of the surgery, the patient will take Advair and esomeprazole with a sip of water. The patient will hold aspirin for five (5) days prior to surgery. The patient is currently medically optimized for the above surgery. By the modified RCRI, the patient's 30 day MACE risk is 4%. The patient wishes to assume this risk and proceed with the above surgery. Nov, Recurrent epistaxis (ICD-10 - R04.0) recurrent R anterior bleed, does not use any nasal sprays, has humidifer on in house continously 11/12/20 5H recurrence; ergo, 11/14/20 d/c asa 81 as per PE 04/29/20 Dr. Lizzeth Pemberton ENT [facility] performed silver nitrate cautery of R anterior septal bleed p removal of epistat ballon (during admission for acute blood loss anemia-hgb 7.8 2 epistaxis) Nov, Pulmonary embolism (ICD-10 - I26.99) No recurrent symptoms on chronic LD asa no previous VTE 11/14/20 held asa 81 given recurrent SEVERE epistaxis c secondary MARGOT requiring tx and IV Fe 2/6/[address] Wadsworth-agrees if - BLE DVT US, safe to dc DOAC which 04/13/17 was -; therefore, stopped 02/26/17 [facility] ER CTA chest stable RUL PE given recurrent CP 12/23/16 stopped ALL NSAIDs (including Celebrex as per lumbar DJD) and asa 81 12/22/16 Xarelto 15 BID x 21D (then 20 QD) started by [facility] for multiple small RUL PE-patient had been increaslingly immobile since 14H car ride 4W prior. Presented c sudden onset R pleuritic CP c increased DUARTE-D-dimer 0.96 (0.19-0.6), BNP 286 (0-125), hgb 11.0, normal PT/PTT/CMP Nov, Hypothyroid (ICD-10 - E03.9) 11/14/20 1.3, 1.1 05/26/20 2.2, 1.2 09/2018 2.9, 1.0 on 75 01/2018 2.8, 1.0 12/2016 1.1, 1.3 on 75 07/2015 1.9 on 75 QD 10 Nov, 2020 Osteoporosis (ICD-10 - M81.0) sp ZA x 2: 04/04/19, 12/22/1803/2020 repeat DXA 10/25/18 -0.4/-0.5/-1.7 c -5/-4/11% change cw 01/2016; therefore, + ZA given dyspepsia c po BP 01/2016 0/-0.2/-2.4 c -2.8-/0.4/0.6% change c/w 06/2013; therefore, 04/2016 stopped Fosamax 70 qW for 2Y holiday (ricardo given dyspepsia) 06/2013 0.2/-0.2/-2.5 c 0.2/-1.1/0.2% change c/w 05/2011 therefore CCR 05/2011 BMD (at [facility]) 0.1/-0.1/-2.5, therefore CCR Nov, Constipation, chronic (ICD-10 - K59.09) Stable on PG 8, sen/doc BID prn Nov, Anemia, iron deficiency (ICD-10 - D50.9) C: IV Fe (intolerant to any po Fe given severe chronic constipation) 11/14/20 9.5, 86, 8; ergo, Injectafer 750 x 1 c repeat BW in 10D 10/21/20 10.9, christelle 7, r30/1.8 07/04/20 11.8, 90, christelle 7 s sup 07/04/[address] Mcfadden to allow patient to return to [facility] GI given missed apts were 2 COVID and recurrent fractures (rib, tibia) and was in [facility] rehab. Additionally only other GI in [facility] does NOT take px's insurance and she states she CANNOT travel to [place] [facility] and has apt c [place] in October (unknown date per px) 05/26/20 10.8, 90, christelle 5 05/22/20 Fe sucorse IV scheduled but px CX 04/30- [facility] admission for symptomatic acute blood loss anemia GI vs epistaxis-hgb 7.7, 90-tx 4u PRBCS, CTA AP, CXR NAD, leeann 200 QD held (but kept LD asa given ho B PE/sedentary lifestyle) and referred back to primary GI, Dr. Varela for EGD/colon; but per 05/15/20 TE, she was DC from [facility] GI practice Nov, DM2 (diabetes mellitus, type 2) (ICD-10 - E11.9) on met 850 BID, mary 100 qAM Contingency: defer SGLT given UTI risk, DPP4 to GLP 10/21/20 6.7; BUT hypoglycemia unawareness c RBG 36; ergo, held glim 4 BID 07/04/20 6.6 09/2018 7.3; therefore, to 4 BID 04/2018 increased to 2 BID 10/2017 8.1; therefore, + glim 1 BID 09/2016 13 11/201217 April 2011 LISA/creatinine of 17 Nov, Recurrent urinary tract infection (ICD-10 - N39. 0) prior on nitro [address] Buitrago 11/14/20 4D malodorous urine with urge incontinence an intrinsic sphincter deficiency (ISD) 06/02/19 UCX P. ariana >100K (R to NFN, tige) c sepsis 04/08/17 UCX MRSA >100K (res to tetra and clinda); therefore, Bactrim 5D (done 2D LUTS) and arranged fu sirena Bal given recurrent UTI who plans to repeat Botox 06/2017 UCX >100K E. faecalis UTI 04/2016 UCX E coli >100K; therefore nitro 10D 11/2015 [facility] referred to Dr. Monica Bal for treatment options, for 05/2016 UDS 11/20- K. pneumonia UTI/SIRS rxed c Macrobid 03/24/15 held Macrobid [address] Tiwari given increased cr and using abx as per asthma Nov, Chronic pain syndrome (ICD-10 - G89.4) Stable on dulox 60 BID, frank 800 TID, baclo 10 QID prn, cyclo 5 TID prn mainly spinal/paraspinal +/- R>L knee h/o sehbzr-zrnoyrt-twfxygwfxzye, recurrent opioid overuse/OUD Contingency: bup/nal 06/08/19 held nor 25 QHS given overlap c dulox, cyclo and escitalo 04/2018 referred for MM trial to Dr. Saleem Nov, Diastolic CHF (ICD-10 - I50.30) Euvolemic on indap 2.5 qAM Caution c K/Mg given h/o severe unexplained hyperK 07/04/20 11/0.6, 4.7, BNP 79 04/2016 4.4, 2.0, 0.9 on K 20 qd, MOX 400 BID 07/2015 4.8, 2.0 c cr 0.7 10/2013 4.7, 1.6 on K 20 qd, MOX 400 BID 05/2012 K 3.3 and Mg 1.6 therefore 20 and 400 BID started Nov, Primary osteoarthritis of both knees (ICD-10 - M 17.0) Stable on diclo 1% QID B knees prn Nov, Closed right hip fracture (ICD-10 - S72.001A) Stable pain on current regimen per Dr. Gao, home PT 03/14/[address] Gao [facility] 03/06/19 sd home on Lovenox 30 BID 14D, oxy 5 disp 30 prn Nov, Arthritis of foot (ICD-10 - M19.079) 09/2018 B new onset, favor 2 tight mid foot shoes, no precedent trauma; therefore, + PT [facility] and + diclo 1% QID Contingency: repeat rheum metcalf, MRI 10/25/18 B feet xray "severe erosive changes MT heads, mild 2-5 phalanges" 06/2013 -CCP, Gemini Nov, Renal cyst (ICD-10 - N28.1) 12/2018 CT AP c contrast at [place]-ordered by Mally, Uro 10/2018 renal US: R 15, 19, L 13 intermediate cysts-ordered by Mally Nov, Oral candidiasis (ICD-10 - B37.0) recurrent oral candidiasis 04/2018 + nystatin 5 ml QID x 14D Nov, DJD (degenerative joint disease), lumbar (ICD-10 - M47.816) 09/08/17 B SIJ injection by Anuradha c ~50% reduction but only for ~10D 06/2017 RS + celecox 200 QD 03/2018 L5/1 c compression R L5 nerve root by MRI 04/2017 released for DINA given 3M continuous DOAC for PE and decreased to 2.5 5x daily (375) 04/2016 Chapa started PT for cervical/lumbar and referred back to Anuradha for injection 12/04/15 weaned to 5 5x daily 09/03/15 oxycodone to 7.5 5x daily 06/10/2015 decreased oxycodone 10 6x QD (1600 cc qM) to 7.5 6x QD (1350) and increased Flexeril 5 TID to 10 TID 11/[address] Nicole severe DJD s recurrent HNP, granulation, L4/5 broad bulge, s stenosis, NCS per Dr. 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 Ling, who planned lumbar epidural but deferred until p cleared by Neurology 05/01/14 given stable MRI LS spine c/w 07/12/12 MRI, referred to Dr. Ling Nov, Tibial plateau fracture, left (ICD-10 - S82.142A ) 03/2018 B ND plateau xv-wfe-pskwtvrp per Dr. Shook pain R JL follows with Dr. Harris Nov, Colon polyp (ICD-10 - K63.5) repeat colon 11/2022-R Nov, Essential tremor (ICD-10 - G25.0) Stable off clon Nov, Asthma, severe persistent (ICD-10 - J45.50) Stable on FP/jewel 250/50 1 BID, CS 2 TID c alb MDI prn follows with Dr. Wadsworth Nov, NICKI (obstructive sleep apnea) (ICD-10 - G47.33) Encouraged compliance c CPAP 6 cm via FFM c 2L O2 bleed follows with Rechlin for asthma/NICKI 08/06/17 tNPSG palliated at CPAP 6 c FP FFM 04/11/17 case dw Roxanalin who agreed c need for CPAP, but would have to restart c HST given CPAP was taken 2 non-compliance, HST was ordered by Rechlin for 05/09/17, then NPSG 10/04/16 Dr. Wheeler felt CPAP was "strongly recommended" and would attempt to requalify her for use 06/2016 diagnostic c Rechlin titrated to CPAP 5 c O2 2L bleed, but CPAP taken away 2 non-compliance per Shanna's 04/12/17 12/05/15 checked HST c SILVESTRE 11 11/22/15 noc ox whie hospitalized c UTI/SIRS c mean 88% c desat to 69%; therefore, 02 2L NC qhs started at d/c per [place] Nov, Hyperalgesia (ICD-10 - R20.8) urdlct-ryshxap-ljthhxez off chronic opioids since ~05/2017Nov, Ataxia (ICD-10 - R27.0) Stable on home PT 04/08/17 upon leaving clinic patient collpased in parking lot 2 "BLE weakness"-she was transferred to [facility] [place] and admission for pain control/metcalf and probable STR 12/2014 referred for PT evaluation for scooter 10/31/[address] Nguyen (Hutchinson had referred to him 07/2014) who ordered MRI brain, BLE NCS, EEG Nov, DJD (degenerative joint disease), cervical (ICD- 10 - M50.30) pain regimen as per CPS Patient refuses ACDF consideration offered by Dr. Lyles 09/20/17 TPI per Anuradha pack 75% pain reduction, but only for ~10D 10/10/15 Chapa recommended PT and to wean off narcotics given he feels they "amplify rather than control her pain" and "have no role in the management of long-term pain" 07/2015 given patient preferring non-surgical approach, advised f/u c Bolla t/c injection 12/12/[address] Lyles given MRI/NCS/PE, who 02/07/16 offered ACDF 07-12 but advised to have L rotator cuff repaired first 11/2014 NCS-Dr. Sparks-mild B median neuropathy localized to wrist, R mild-moderate chronic C8/T-1 radic Nov, Gross hematuria (ICD-10 - R31.0) No recurrent hematuria 05/2017 normal cystoureteroscopy c B retrograde c IV Botox 01/08/17 CT AP hematuria protocol NAD x 2 cm R renal simple cyst 01/05/17 UCX NG 12/31/16 [facility] dx E. faecalis UTI (UCX >100K)-UA TNTC WBC/RBCs-started cephalexin 500 QID x 10D c slow improvement of hematuria, WBC 11.0 c normal diff, hgb 12.2, cr 0.8 12/23/16 new onset painless gross hematuria 06/2016 normal cystoureteroscopy-Dr. Monica [facility] (IV Botox administered) Nov, Hyperlipidemia (ICD-10 - E78.5) Contingency: ezet 07/04/20 65/73/92 09/2018 30/73/64 on rosuva 40 01/2018 92/48/206, 59, 0.4 12/2016 37/59/126, 82, 0.4 on rosuva 40 09/2016 182/68/138 on atorva 40; therefore, changed to rosuva 40, but i would not cover; therefore, patient paid for it OOP 02/2016 61/48/236, CPK 78 on atorvastatin 40 TSH as per hypo 10 Nov, 2020 Gastroesophageal reflux dise ase, esophagitis presence not specified (ICD-10 - K21.9) Stable on eso 40 qAM (2 20 qAM) 04/2016 given ~2M increased PP bloating and intermittent LUQ tenderness and held Fosamax 70 qW Nov, Impingement syndrome of both shoulders (ICD-10 - M75.41) pain regimen as per lumbar DJD R>>L 10/2015 Dr. Chapa repeated MRI which revealed "partial thickness tear, some AC arthritis, SA effusion" and recommended PT 03/25/2015 Dr. Ceballos referred to Dr. Barker SOS-04/18/15 apt who referred for PT and felt patient was not a candidate for either shoulder surgery and recommended cervical surgery Nov, Insomnia (ICD-10 - G47.00) Stable on ami 25, marlen 8 QHS 04/12/17 zolpidem 5 held as per NICKI 12/2015 changed trazadone 200 to zolpidem 5 qhs (given no benefit c trazadone) Nov, Depression (ICD-10 - F32.9) Stable on escital 10 and dulox as per CPS Nov, Breast cancer screening (ICD-10 - Z12.39) 10/2018 B C1 mammogram 09/22/20, 07/04/20 gave mammo order Nov, Vitamin D deficiency (ICD-10 - E55.9) 01/2018 62, 10.2, 48 10/2017 73, 9.5, 82 12/2016 59, 9.4, 90-? 1HPT 03/2015 42, 9.0, PTH 75 on D2 50K q14D Nov, Hypertension (ICD-10 - I10) stable on regimen as per CHF K/Mg/cr as per CHF Nov, Folic acid deficiency (ICD-10 - E53.8) 10/2017 12.5, 91, CHr 35 s Fe 03/2017 hgb 12.6, 87 12/2016 640 07/2014 B12 1307 s supplementation 12/2016 676 07/2014 RBC folate 202, therefore started 1 mg qd Nov, Fibromyalgia (ICD-10 - M79.7) regimen as per chronic pain syndrome PLAN OF TREATMENT Medication Medication Name Sig Start Date Stop Date Folic Acid 1 MG 1 tablet Orally Once a day for 30 Days Baclofen 10 MG as directed Orally four times daily for 30 Days Indapamide 2.5 MG 1 [...] a day as needed for 30 Days Rosuvastatin Calcium 40 MG 1 tablet Orally Once a day for 90 day (s) Mupirocin 2 % 1 application to each nares R intranasal septum TID for 30 Days Nov, Esomeprazole Magnesium 20 MG 2 capsules Orally every morning for 30 Days Voltaren 1 % as directed Transdermal Four times a day as needed to posterior knee for 30 Days DULoxetine HCl 60 MG 1 capsule Orally bid for 30 Days Reclast 5 MG/100ML as directed Intravenous SITagliptin Phosphate 100 MG 1 tablet Orally Once a day for 30 D ays Gabapentin 800 MG 1 tablet Orally Three times a day for 30 Days Polyethylene Glycol - 8 gm orally in 8 oz liquid daily for 30 Da ys Amitriptyline HCl 25 mg 1 tab Orally at bedtime for 30 Days Injectafer 750 MG/15ML as directed Intravenous Nov, Levothyroxine Sodium 75 MCG 1 tablet every morning on an empty stomach Orally Once a day for 30 day(s) Ergocalciferol 07476 UNIT 1 capsule Orally every 14 days [...] Inhalation Twice a day for 30 Days Treatment Notes Assessment Notes Clinical Notes Arthritis of foot 09/2018 B new onset, favor 2 tight mid foot shoes, no precedent trauma; therefore, + PT [facility] and + diclo 1% QIDContingency: repeat rheum metcalf, MRI10/25/18 B feet xray "severe erosive changes MT heads, mild 2-5 phalanges"06/2013 -CCP, [facility] Fibromyalgia regimen as per chron ic pain syndrome Closed right hip fracture Stable pain on current regimen per Dr. Gao, home PT03/14/[address] Gao [facility]03/06/19 dc home on Lovenox 30 BID 14D, oxy 5 disp 30 prn Folic acid deficiency 10/2017 12.5, 91, C Hr 35 s hgb 12.6, 8712/2016 6405/2014 B12 1307 s qascilzibdtdydn01/2017 6765/2015 RBC folate 202, therefore started 1 mg qd Oral candidiasis recurrent oral ceasar diasis04/2018 + nystatin 5 ml QID x 14D Renal cyst 12/2018 CT AP c cont rast at [place]-ordered by Mally, Uro10/2018 renal US: R 15, 19, L 13 intermediate cysts-ordered by Mally Tibial plateau fracture, left 03/2018 B N D plateau si-rmp-iyiyvfev per Dr. Ruiz pain R JLfollows with Dr. Steven TALAMANTES (degenerative joint disease), lumbar 09/08/17 B SIJ injection by Anuradha c ~50% reduction but only for ~ RS + celecox 200 QD03/2018 L5/1 c compression R L5 nerve root by MRI04/2017 released for DINA given 3M continuous DOAC for PE and decreased to 2.5 5x daily (375)04/2016 Chapa started PT for cervical/lumbar and referred back to Anuradha for injection12/04/15 weaned to 5 5x daily09/03/15 oxycodone to 7.5 5x daily06/10/2015 decreased oxycodone 10 6x QD (1600 cc qM) to 7.5 6x QD (1350) and increased Flexeril 5 TID to 10 TID11/[address] Nicole severe DJD s recurrent HNP, granulation, L4/5 broad bulge, s stenosis, NCS per Dr. 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 Ling, who planned lumbar epidural but deferred until p cleared by Neurology05/01/14 given stable MRI LS spine c/w 07/12/12 MRI, referred to Dr. Ling Essential tremor Stable off clon Colon polyp repeat colon 11/2022- R Breast cancer screening 10/2018 B C1 mamm ogram09/22/20, 07/04/20 gave mammo order Depression Stable on escital 10 and dulox as per CPS Primary osteoarthritis of both knees Sta ble on diclo 1% QID B knees prn Hypertension stable on regimen as per CHFK/Mg/cr as per CHF Diastolic CHF Euvolemic on indap 2 .5 qAMCaution c K/Mg given h/o severe unexplained hyperK4 11/0.6, 4.7, BNP 792/2016 4.4, 2.0, 0.9 on K 20 qd, MOX 400 BID07/2015 4.8, 2.0 c cr 0. 4.7, 1.6 on K 20 qd, MOX 400 BID05/2012 K 3.3 and Mg 1.6 therefore 20 and 400 BID started Vitamin D deficiency 01/2018 62, 10.2, 4 73, 9.5, 8210 59, 9.4, 90-? 1HPT03/2015 42, 9.0, PTH 75 on D2 50K q14D DJD (degenerative joint disease), cervical pain regimen as per CPSPatient refuses ACDF consideration offered by Dr. Lyles09/20/17 TPI per Anuradha pack 75% pain reduction, but only for ~10D10/10/15 Eduard recommended PT and to wean off narcotics given he feels they "amplify rather than control her pain" and "have no role in the management of long-term pain"07/2015 given patient preferring non- surgical approach, advised f/u c Bolla t/c vtcmhuxqj62/8/[address] Lyles given MRI/NCS/PE, who 02/07/16 offered ACDF 07-12 but advised to have L rotator cuff repaired first11/2014 NCS-Dr. Sparks-mild B median neuropathy localized to wrist, R mild-moderate chronic C8/T-1 radic Preoperative clearance On 11/14/20 the grant knight had a stable CBCD and CMP. On 11/14/20 the patient's EKG revealed normal sinus rhythm at 81 beats per minute c IVCD, no hypertrophy, normal axis and anterior repolarization abnormality similar to 06/18/16 EKG. On the AM of the surgery, the patient will take Advair and esomeprazole with a sip of water. The patient will hold aspirin for five (5) days prior to surgery. The patient is currently medically optimized for the above surgery. By the modified RCRI, the patient's 30 day MACE risk is 4%. The patient wishes to assume this risk and proceed with the above surgery. Ataxia Stable on home PT04/08 upon leaving clinic patient collpased in parking lot 2 "BLE weakness"-she was transferred to [facility] [place] and admission for pain control/metcalf and probable STR12/2014 referred for PT evaluation for scooter10/31/[address] Nguyen (Hutchinson had referred to him 07/2014) who ordered MRI brain, BLE NCS, EEG Recurrent epistaxis recurrent R anterior bleed, does not use any nasal sprays, has humidifer on in house continously11/12/20 5H recurrence; ergo, 11/14/20 d/c asa 81 as per PE04/29/20 Dr. Lizzeth Pemberton ENT [facility] performed silver nitrate cautery of R anterior septal bleed p removal of epistat ballon (during admission for acute blood loss anemia-hgb 7.8 2 epistaxis) Hyperlipidemia Contingency: ezet4/3 65/73/927/2018 3073/64 on rosuva 401/2017 92/48/206, 59, 0.410/2016 37/59/126, 82, 0.4 on rosuva 182/68/138 on atorva 40; therefore, changed to rosuva 40, but i would not cover; therefore, patient paid for it OOP02/2016 61/48/236, CPK 78 on atorvastatin 40TSH as per hypo Pulmonary embolism No recurrent symptom s on chronic LD asano previous VTE11/14/20 held asa 81 given recurrent SEVERE epistaxis c secondary MARGOT requiring tx and IV 04/12/[address] Wadsworth-agrees if - BLE DVT US, safe to dc DOAC which 04/13/17 was -; therefore, pkhaksh13/23/17 [facility] ER CTA chest stable RUL PE given recurrent CP12/23/16 stopped ALL NSAIDs (including Celebrex as per lumbar DJD) and asa Xarelto 15 BID x 21D (then 20 QD) started by [facility] for multiple small RUL PE-patient had been increaslingly immobile since 14H car ride 4W prior. Presented c sudden onset R pleuritic CP c increased DUARTE-D-dimer 0.96 (0.19-0.6), BNP 286 (0-125), hgb 11.0, normal PT/PTT/CMP Gross hematuria No recurrent hematur ia05/2017 normal cystoureteroscopy c B retrograde c IV Botox103/10/16 CT AP hematuria protocol NAD x 2 cm R renal simple cyst01/05/17 UCX NG12/31/16 [facility] dx E. faecalis UTI (UCX >100K)-UA TNTC WBC/RBCs-started cephalexin 500 QID x 10D c slow improvement of hematuria, WBC 11.0 c normal diff, hgb 12.2, cr 0.81 new onset painless gross hematuria06/2016 normal cystoureteroscopy-Dr. Anderson [facility] (IV Botox administered) Hypothyroid 11/14/20 1.3, 1.13 2.2, 1. 2.9, 1.0 on 2.8, 1.010/2016 1.1, 1.3 on 1.9 on 75 QD Impingement syndrome of both shoulders p ain regimen as per lumbar DJDR>>L10/2015 Dr. Chapa repeated MRI which revealed "partial thickness tear, some AC arthritis, SA effusion" and recommended PT03/25/2015 Dr. Ceballos referred to Dr. Barker SOS-04/18/15 apt who referred for PT and felt patient was not a candidate for either shoulder surgery and recommended cervical surgery Osteoporosis sp ZA x 2: 04/04/19, 12/22/ repeat DXA10/25/18 -0.4/-0.5/-1.7 c -5/-4/11% change cw 01/2016; therefore, + ZA given dyspepsia c po BP103/2015 0/-0.2/-2.4 c -2.8-/0.4/0.6% change c/w 06/2013; therefore, 04/2016 stopped Fosamax 70 qW for 2Y holiday (ricardo given dyspepsia)06/2013 0.2/-0.2/-2.5 c 0.2/-1.1/0.2% change c/w 05/2011 therefore CCR05/2011 BMD (at [facility]) 0.1/-0.1/-2.5, therefore CCR Gastroesophageal reflux disease, esophagitis presence not sp ecified Stable on eso 40 qAM (2 20 qAM)04/2016 given ~2M increased PP bloating and intermittent LUQ tenderness and held Fosamax 70 qW Constipation, chronic Stable on PG 8, se n/doc BID prn Anemia, iron deficiency C: IV Fe (intole rant to any po Fe given severe chronic constipation)11/14/20 9.5, 86, 8; ergo, Injectafer 750 x 1 c repeat BW in 10/21/20 10.9, christelle 7, r30/1. 11.8, 90, christelle 7 s sup07/04/[address] Mcfadden to allow patient to return to [facility] GI given missed apts were 2 COVID and recurrent fractures (rib, tibia) and was in [facility] rehab. Additionally only other GI in [facility] does NOT take px's insurance and she states she CANNOT travel to [place] 2 pain and has apt c [place] in October (unknown date per px)05/26/20 10.8, 90, christelle Fe sucorse IV scheduled but px CX/- [facility] admission for symptomatic acute blood loss anemia GI vs epistaxis-hgb 7.7, 90-tx 4u PRBCS, CTA AP, CXR NAD, leeann 200 QD held (but kept LD asa given ho B PE/sedentary lifestyle) and referred back to primary GI, Dr. Varela for EGD/colon; but per 05/15/20 TE, she was DC from [facility] GI practice Insomnia Stable on ami 25, me l 8 QHS04/12/17 zolpidem 5 held as per OSA12/2015 changed trazadone 200 to zolpidem 5 qhs (given no benefit c trazadone) Asthma, severe persistent Stable on FP/s al 250/50 1 BID, CS 2 TID c alb MDI prnfollows with Dr. Wadsworth Hyperalgesia slduvj-hfgasat-olgwb christian off chronic opioids since ~05/2017 NICKI (obstructive sleep apnea) Encouraged compliance c CPAP 6 cm via FFM c 2L O2 bleedfollows with Rechlin for asthma/OSA08/06/17 tNPSG palliated at CPAP 6 c FP FFM2 case dw Rechlin who agreed c need for CPAP, but would have to restart c HST given CPAP was taken 2 non-compliance, HST was ordered by Rechlin for 05/09/17, then NPSG10/04/16 Dr. Wheeler felt CPAP was "strongly recommended" and would attempt to requalify her for use06/2016 diagnostic c Rechlin titrated to CPAP 5 c O2 2L bleed, but CPAP taken away 2 non-compliance per Shanna's checked HST c SILVESTRE noc ox whie hospitalized c UTI/SIRS c mean 88% c desat to 69%; therefore, 02 2L NC qhs started at d/c per Samantha DM2 (diabetes mellitus, type 2) on met 8 50 BID, mary 100 qAMContingency: defer SGLT given UTI risk, DPP4 to GLP10/21/20 6.7; BUT hypoglycemia unawareness c RBG 36; ergo, held glim 4 BID07/04/20 6. 7.3; therefore, to 4 BID04/2018 i ncreased to 2 BID10/2017 8.1; therefore, + glim 1 BID09/2016 139 11February 2011 LISA/creatinine of 17 Recurrent urinary tract infection prior on nitro [address] Buitrago11/14/20 4D malodorous urinewith urge incontinence an intrinsic sphincter deficiency (ISD)06/02/19 UCX P. ariana >100K (R to NFN, tige) c sepsis04/08/17 UCX MRSA >100K (res to tetra and clinda); therefore, Bactrim 5D (done 2D LUTS) and arranged fu sirena Bal given recurrent UTI who plans to repeat Botox UCX >100K E. faecalis UTI04/2016 UCX E coli >100K; therefore nitro AMP Urology referred to Dr. Monica Bal for treatment options, for 05/2016 UDS9/16- K. pneumonia UTI/SIRS rxed c Macrobid1/ held Macrobid [address] Tiwari given increased cr and using abx as per asthma Chronic pain syndrome Stable on dulox 60 BID, frank 800 TID, baclo 10 QID prn, cyclo 5 TID prnmainly spinal/paraspinal +/- R>L kneeh/o aaslqy-osxecaj-iowiwxmpyruq, recurrent opioid overuse/OUDContingency: bup/nal4/05/24 held nor 25 QHS given overlap c dulox, cyclo and escital referred for MM trial to Dr. Saleem Treatment Notes Test Name Order Date H PYLORI SERUM QUANT IGM 2020-11-14 H PYLORI SERUM QUANT IgG SANGEETHA 2020-11-14 URINE CULTURE 2020-11-14 Future Test Test Name Order Date CBC with Differential [id number] FERRITIN [id number] Next Appt Details 3M, BW NOW Reason: Provider Name:Kimani Ann, 2021-03-20 1 1:45:00 AM, [address] [facility], , [place], [address], Insurance Providers Payer Name Payer Address Payer Phone Insured Name Patient Relati onship to Insured Coverage Start Date Coverage End Date [facility] COMMUNITY PLAN [facility] [address] [facility] [phone] CASSIE ARTHUR self
--- OUTSIDE RECORDS SUMMARY | 2020-12-25 16:49 | CCD ---
Author Author [facility] Organization [facility] Address Unknown Phone Unavailable Care Team Providers Care Search Engineer Name Role Phone Kimani Ann Unavailable PROBLEMS Type Condition ICD9-CM Code [id number] Code Onset Dates Condition S tatus W/U Status Risk SNOMED Code Notes Problem Depression F32.9 Active confirmed 71218367 Problem Insomnia G47.00 Active confirmed 035543641 Problem Breast cancer screening Z12.39 Active confirmed 888731794 Problem Gastroesophageal reflux disease, esophagitis pre sence not specified K21.9 Active confirmed 941772039 Problem Folic acid deficiency E53.8 Active confirmed 362418466 Problem NICKI (obstructive sleep apnea) G47.33 Active confirm ed 09885009 Problem Osteoporosis M81.0 Active confirmed 0002652 6 Problem Tibial plateau fracture, left S82.142A Active confi rmed 60407269 Problem Vitamin D deficiency E55.9 Active confirmed 56757290 Problem Oral candidiasis B37.0 Active confirmed 797 38821 Problem Hypothyroid E03.9 Active confirmed 61165314 Problem Fibromyalgia M79.7 Active confirmed 0521067 05 Problem Hypertension I10 Active confirmed 8188193 3 Problem Other disturbances of skin sensation R20.8 Act андрей confirmed 66794149 Problem Hyperalgesia R20.8 Active confirmed 4077758 8 Problem Hypothyroidism, unspecified E03.9 Active confirmed 35154356 Problem Ataxia R27.0 Active confirmed 36304989 Problem Mixed hyperlipidemia E78.2 Active confirmed 769016023 Problem Asthma, severe persistent J45.50 Active confirmed 303265540 Problem Essential tremor G25.0 Active confirmed 609 942526 Problem Hyperlipidemia E78.5 Active confirmed 89276 004 Problem Diabetes mellitus without me ntion of complication, type II or unspecified type, not stated as uncontrolled 250.00 Activ e confirmed 635907310 Problem Diastolic CHF I50.30 Active confirmed 747975 008 Problem Chronic pain syndrome G89.4 Active confirmed 815147296 Problem Recurrent urinary tract infection N39.0 Active confirmed 889213929 Problem Constipation, chronic K59.09 Active confirmed 994476595 Problem Impingement syndrome of both shoulders M75.41 A ctive confirmed 138108824 Problem 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 Active confirmed 4 68209485 Problem Falls frequently R29.6 Active confirmed 279 700549 Problem Primary osteoarthritis of right knee M17.11 Act андрей confirmed 141475233059382 Problem Anemia, iron deficiency D50.9 Active confirmed 92472264 Problem Wrist fracture, left, sequela S62.102S Active confi rmed 925260669 Problem Recurrent epistaxis R04.0 Active confirmed 637905734 Problem Colon polyp K63.5 Active confirmed 05859895 Problem DM2 (diabetes mellitus, type 2) E11.9 Active confi rmed 48464189 Problem Pulmonary embolism I26.99 Active confirmed 5 5219202 Problem DJD (degenerative joint disease), cervical M50.30 Active confirmed 52535868 Problem Primary osteoarthritis of both knees M17.0 Act андрей confirmed 134661274 Problem Menopausal and female climacteric states N95.1 Active confirmed 042875979 Problem DJD (degenerative joint disease), lumbar M47.816 Active confirmed 321301261 Problem Anxiety F41.9 Active confirmed 27711945 Problem Constipation, unspecified constipation type K59.00 Active confirmed 56359629 ALLERGIES Allergen (clinical drug ingredient) Drug/Non Drug Allergy do cumented on EMR Reaction Allergy Type Onset Date Status tequin pruritis Non Drug Allergy Active Zocor 10 Anaphylaxis Drug Allergy Active puneet sprinkles head ache Non Drug Allergy Active Vioxx (for allergy use only) bruising Drug Allergy Active ENCOUNTERS from 1956 to 2020-12-16 Encounter Location Date Provider Diagnosis [address] [phone] [place] [address] Dec, Kimani Ann Anemia, iron deficiency D50. 9 IMMUNIZATIONS Vaccine Route Administration Date Status Influenza 6mo & up Fluzone IM Intramuscular Feb 13, 2013 Admi nistered SOCIAL HISTORY Tobacco Use: Social History Observation Description Date Details (start date - stop date) Never Smoker Sex Assigned At : Social History Observation Description Sex Assigned At Unknown Education: Question Answer Notes Level of Education: High School Language: Question Answer Notes Languages spoken: Namibian Islam: Question Answer Notes Islam 21 Nondenominational Sexual Hx: Question Answer Notes Had sex [...] for 30 D ays Active Nystatin Powder 307166 UNIT 1 application to affected area Externally [...] as needed for 30 Days Active Ergocalciferol 77620 UNIT 1 capsule Orally every 14 days [...] with Dr. Wadsworth-10/2015 FEV1 2.0L (69%)/ratio 80 % normal CT chest PE protocol Medical History [...] instability-June 2010 normal nerve conduction studies bilateral extremities-[facility] Medical History anemia, iron deficiency Medical [...] Graciela Medical History R PE-dx at [facility]-CT A chest c "small pulmonary emboli to RU PA with areas of parenchymal disease suggestive of pulmonary infarction"- started in Xarelto 15 BID Medical History MRSA UTI-04/08/17 UCX >100K Medical History R distal femur comminuted fr acture sp mechanical fall sp [facility] laparoscopic cholecystectomy-Dr. Courtney January 2007 [...] bun ion surgery c bone graft/pin- Dr.Frederick Zambrano-[facility] 06/25/16 Surgical History IM nail fo R distal femur re trograde approach [address] Gao-[facility] 02/20/19 Surgical History left and right cataract removal- Dr. Miranda oms-[facility] 09/24 10/25 Hospitalization History hyperkalemia 9.3 [...] - serial EK/T-I, telemetry 11/20- Hospitalization History Yggfgr-ugzu-ql respiratory f ailure c desaturation to Sa)2 20% from same day surgery for R bunion surgery, then rehab at [facility] 06/25- Hospitalization History frequent falls-favoring 2 op iate overuse/misuse-CT cervical/head NAD/xray thoracic, LS, L hip NAD, stable CBCD, CMP, CIP/T-I, - telemetry, UDS + morphine, oxycodone; unresponsive episode requiring Narcan 0.8 to reverse 04/08-06/22 Hospitalization History mechanical fall sp R femur s p IM nail placement by Dr. Gao, tx PRBCs-[facility] 02/19- Hospitalization History P. mirabilis UTI c [...] Treatment Notes Treatm ent Clinical Notes Dec, Anemia, iron deficiency (ICD-10 - D50.9) PLAN OF TREATMENT Medication Medication Name Sig [...] Once a day for 30 day(s) Ergocalciferol 90446 UNIT 1 capsule Orally every 14 days [...] Inhalation Twice a day for 30 Days Future Test Test Name Order Date CBC with Differential [id number] FERRITIN [id number] Next Appt Details Provider Name:Kimani Ann, 2021-03-20 1 1:45:00 AM, [address] [facility], , [place], [address], Insurance Providers Payer Name Payer Address Payer Phone Insured Name Patient Relati onship to Insured Coverage Start Date Coverage End Date [facility] COMMUNITY PLAN [facility] [address] [facility] [phone] CASSIE ARTHUR self
--- OUTSIDE RECORDS SUMMARY | 2020-12-25 16:49 | CCD ---
Author Author [employer] Organization [facility] [employer] Address Unknown Phone Unavailable Care Team Providers Care Security System Technician Name Role Phone Kimani Ann Unavailable PROBLEMS Type Condition ICD9-CM Code [id number] Code Onset Dates Condition S tatus W/U Status Risk SNOMED Code Notes Problem Fibromyalgia M79.7 Active confirmed 3962737 05 Problem Breast cancer screening Z12.39 Active confirmed 361286416 Problem Depression F32.9 Active confirmed 14867404 Problem Folic acid deficiency E53.8 Active confirmed 401168914 Problem Insomnia G47.00 Active confirmed 462464135 Problem Osteoporosis M81.0 Active confirmed 8697712 6 Problem Gastroesophageal reflux disease, esophagitis pre sence not specified K21.9 Active confirmed 142757586 Problem Oral candidiasis B37.0 Active confirmed 797 89899 Problem Hypothyroid E03.9 Active confirmed 90684517 Problem Chronic pain syndrome G89.4 Active confirmed 141244883 Problem Recurrent urinary tract infection N39.0 Active confirmed 166899843 Problem Hypertension I10 Active confirmed 2121043 3 Problem Vitamin D deficiency E55.9 Active confirmed 32445086 Problem Hyperalgesia R20.8 Active confirmed 1583314 8 Problem Pulmonary embolism I26.99 Active confirmed 5 7052598 Problem Mixed hyperlipidemia E78.2 Active confirmed 532278887 Problem Asthma, severe persistent J45.50 Active confirmed 072706422 Problem Other disturbances of skin sensation R20.8 Act андрей confirmed 60437399 Problem DJD (degenerative joint disease), lumbar M47.816 Active confirmed 727110252 Problem Diabetes mellitus without me ntion of complication, type II or unspecified type, not stated as uncontrolled 250.00 Activ e confirmed 197380723 Problem Impingement syndrome of both shoulders M75.41 A ctive confirmed 410607412 Problem Hypothyroidism, unspecified E03.9 Active confirmed 35988345 Problem Ataxia R27.0 Active confirmed 87553334 Problem Constipation, chronic K59.09 Active confirmed 678925048 Problem Hyperlipidemia E78.5 Active confirmed 20347 004 Problem Essential tremor G25.0 Active confirmed 609 765048 Problem Diastolic CHF I50.30 Active confirmed 888888 008 Problem Tibial plateau fracture, left S82.142A Active confi rmed 69810639 Problem 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 Active confirmed 4 90198886 Problem Falls frequently R29.6 Active confirmed 279 620167 Problem Constipation, unspecified constipation type K59.00 Active confirmed 09204271 Problem Colon polyp K63.5 Active confirmed 65708994 Problem Anemia, iron deficiency D50.9 Active confirmed 03424735 Problem NICKI (obstructive sleep apnea) G47.33 Active confirm ed 12218038 Problem DJD (degenerative joint disease), cervical M50.30 Active confirmed 64746724 Problem Wrist fracture, left, sequela S62.102S Active confi rmed 842128395 Problem Primary osteoarthritis of right knee M17.11 Act андрей confirmed 671990990201739 Problem Primary osteoarthritis of both knees M17.0 Act андрей confirmed 108787580 Problem DM2 (diabetes mellitus, type 2) E11.9 Active confi rmed 99364388 Problem Menopausal and female climacteric states N95.1 Active confirmed 975495371 Problem Anxiety F41.9 Active confirmed 61279284 ALLERGIES Allergen (clinical drug ingredient) Drug/Non Drug Allergy do cumented on EMR Reaction Allergy Type Onset Date Status tequin pruritis Non Drug Allergy Active Zocor 10 Anaphylaxis Drug Allergy Active puneet sprinkles head ache Non Drug Allergy Active Vioxx (for allergy use only) bruising Drug Allergy Active ENCOUNTERS from 1955 to 2020-11-04 Encounter Location Date Provider Diagnosis [address] [phone] [place] [address] Oct, Kimani Ann IMMUNIZATIONS Vaccine Route Administration Date [...] School Language: Question Answer Notes Languages spoken: Swiss Uatsdin: Question Answer Notes Uatsdin 22 [employer] Sexual Hx: Question Answer Notes Had sex [...] Orally Once a day for 28 Active Gabapentin 800 MG 1 tablet Orally Three times a day for 30 Days Active Proventil HFA 108 [...] a day for 30 da ys Active Reclast 5 MG/100ML as directed Intravenous Active Amitriptyline HCl 25 mg 1 tab Orally at bedtime for 30 Days Active Esomeprazole Magnesium 20 MG 2 capsules Orally every morning for 30 D ays Active DULoxetine HCl 60 MG 1 capsule Orally bid for 30 Days Active Nystatin Powder 065722 UNIT 1 application to affected area Externally twice daily under juan breasts for 30 day(s) Active Polyethylene Glycol - 8 gm orally in 8 oz liquid daily for 30 Days Active Rozerem 8 mg 1 tablet at bedtime Orally Daily at bedt elke as needed for 30 Days Active Magnesium Oxide 400 (240 Mg) MG TAKE ONE TABLET BY NELSON TH @8AM and TAKE ONE TABLET @8PM for 28 Active Senna Plus 8.6-50 MG 2 tablet in the evening as n eeded Orally Once a day for 30 Days Active SITagliptin Phosphate 100 MG 1 tablet Orally Once a day for 30 Days Active Blood Glucose Test - as directed subcutaneously qid for 30 Days Oct, Active Blood Glucose Test One touch as [...] Once a day for 28 Active Ergocalciferol 46898 UNIT 1 capsule Orally every 14 days for 30 Days Active Glucometer as directed DX: E11.9 Daily for 90 day(s) Au g2020 Active Folic Acid 1 MG 1 tablet Orally Once a day for 30 Days Active Baclofen 10 MG as directed Orally four times daily for 30 Days Active Indapamide 2.5 MG [...] Information RESULTS No Results REASON FOR VISIT refill-nystatin powder MEDICAL (GENERAL) HISTORY Type Description Date Medical [...] very mild right carpal tunnel syndrome/ - RF/CCP/NETTE//11/2015 ML DJD, ricardo L5/S1 s [...] 2010 normal nerve conduction studies bilateral extremities-[facility] Medical History anemia, iron deficiency [...] by Graciela Medical History R PE[facility] A chest c "small pulmonary emboli to RU PA with areas of parenchymal disease suggestive of pulmonary infarction"- started in Xarelto 15 BID Medical History MRSA UTI-04/08/17 UCX >100K Medical History R distal femur comminuted fr acture sp mechanical fall sp [facility] laparoscopic cholecystectomy-Dr. Courtney [...] trograde approach [address] [facility] History hyperkalemia 9.3 with [...] - serial EK/T-I, telemetry 11/20- Hospitalization History [id number] respiratory f ailure c desaturation to Sa)2 20% from same day surgery for R bunion surgery, then rehab [facility] 06/25- Hospitalization History frequent falls-favoring 2 op iate overuse/misuse-CT cervical/head NAD/xray thoracic, LS, L hip NAD, stable CBCD, CMP, CIP/T-I, - telemetry, UDS + morphine, oxycodone; unresponsive episode requiring Narcan 0.8 to reverse 04/08-06/22 Hospitalization History mechanical fall sp R femur s p IM nail placement by Dr. Gao, tx [facility] 02/19- Hospitalization History P. mirabilis [...] directed subcutaneously qid for 30 Days 2020 Reclast 5 MG/100ML as directed Intravenous DULoxetine HCl 60 MG 1 capsule Orally bid for 30 Days Senna Plus 8.6-50 MG 2 tablet in the evening as n eeded Orally Once a day for 30 Days Baclofen 10 MG as directed Orally four times daily for 30 Days Polyethylene Glycol - 8 gm orally in 8 oz liquid daily for 30 Da ys Gabapentin 800 MG 1 tablet Orally Three times a day for 30 Days Cyclobenzaprine HCl 5 MG 1 tab Orally TID prn for 30 Days Amitriptyline HCl 25 mg 1 tab Orally at bedtime for 30 Days Nystatin Powder 454686 UNIT 1 application to affected area Externally twice daily under juan breasts for 30 day(s) Proventil HFA 108 (90 [...] Inhalation Twice a day for 30 Days SITagliptin Phosphate 100 MG 1 tablet Orally Once a day for 30 D ays Blood Glucose Test - as directed subcutaneously qid for 30 Days Oct, Escitalopram Oxalate 10 MG 1 tablet Orally Once a day for 30 Day s Potassium chloride 20 meq 1 tab(s) orally Once a day for 30 Days Indapamide 2.5 MG 1 tablet by mouth Once a day for 30 Days Ergocalciferol 66102 UNIT 1 capsule Orally every 14 days [...] days Next Appt Details Provider Name:Kimani Ann, 2020-11-12 0 1:30:00 PM, [address] [facility], , [place], [address], Insurance Providers Payer Name Payer Address Payer Phone Insured Name Patient Relati onship to Insured Coverage Start Date Coverage End Date [facility] [employer] [facility] [address] [facility] [address] [phone] CASSIE ARTHUR self
--- OUTSIDE RECORDS SUMMARY | 2020-12-25 16:49 | CCD ---
Author Author [facility] Organization [facility] Address Unknown Phone Unavailable Care Team Providers Care Police Dispatcher Name Role Phone Kimani Ann Unavailable PROBLEMS Type Condition ICD9-CM Code WPB12-PK Code Onset Dates Condition S tatus W/U Status Risk SNOMED Code Notes Problem Depression F32.9 Active confirmed 42025746 Problem Insomnia G47.00 Active confirmed 721536331 Problem Breast cancer screening Z12.39 Active confirmed 457811689 Problem Gastroesophageal reflux disease, esophagitis pre sence not specified K21.9 Active confirmed 282638460 Problem Folic acid deficiency E53.8 Active confirmed 828576678 Problem NICKI (obstructive sleep apnea) G47.33 Active confirm ed 18076317 Problem Osteoporosis M81.0 Active confirmed 5942773 6 Problem Tibial plateau fracture, left S82.142A Active confi rmed 90191417 Problem Vitamin D deficiency E55.9 Active confirmed 46049647 Problem Oral candidiasis B37.0 Active confirmed 797 52023 Problem Hypothyroid E03.9 Active confirmed 18763450 Problem Fibromyalgia M79.7 Active confirmed 6766585 05 Problem Hypertension I10 Active confirmed 0189429 3 Problem Other disturbances of skin sensation R20.8 Act андрей confirmed 89827608 Problem Hyperalgesia R20.8 Active confirmed 0905203 8 Problem Hypothyroidism, unspecified E03.9 Active confirmed 00172060 Problem Ataxia R27.0 Active confirmed 73889179 Problem Mixed hyperlipidemia E78.2 Active confirmed 238953970 Problem Asthma, severe persistent J45.50 Active confirmed 606144749 Problem Essential tremor G25.0 Active confirmed 609 388339 Problem Hyperlipidemia E78.5 Active confirmed 65629 004 Problem Diabetes mellitus without me ntion of complication, type II or unspecified type, not stated as uncontrolled 250.00 Activ e confirmed 659172123 Problem Diastolic CHF I50.30 Active confirmed 606468 008 Problem Chronic pain syndrome G89.4 Active confirmed 112628600 Problem Recurrent urinary tract infection N39.0 Active confirmed 144016235 Problem Constipation, chronic K59.09 Active confirmed 762917532 Problem Impingement syndrome of both shoulders M75.41 A ctive confirmed 665525919 Problem 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 Active confirmed 4 34306663 Problem Falls frequently R29.6 Active confirmed 279 133516 Problem Primary osteoarthritis of right knee M17.11 Act андрей confirmed 317819123621795 Problem Anemia, iron deficiency D50.9 Active confirmed 69137297 Problem Wrist fracture, left, sequela S62.102S Active confi rmed 402102629 Problem Recurrent epistaxis R04.0 Active confirmed 797550546 Problem Colon polyp K63.5 Active confirmed 25205318 Problem DM2 (diabetes mellitus, type 2) E11.9 Active confi rmed 74127055 Problem Pulmonary embolism I26.99 Active confirmed 5 4400130 Problem DJD (degenerative joint disease), cervical M50.30 Active confirmed 66608321 Problem Primary osteoarthritis of both knees M17.0 Act андрей confirmed 876945589 Problem Menopausal and female climacteric states N95.1 Active confirmed 949771404 Problem DJD (degenerative joint disease), lumbar M47.816 Active confirmed 520705492 Problem Anxiety F41.9 Active confirmed 53862162 Problem Constipation, unspecified constipation type K59.00 Active confirmed 69469671 ALLERGIES Allergen (clinical drug ingredient) Drug/Non Drug Allergy do cumented on EMR Reaction Allergy Type Onset Date Status tequin pruritis Non Drug Allergy Active Zocor 10 Anaphylaxis Drug Allergy Active puneet sprinkles head ache Non Drug Allergy Active Vioxx (for allergy use only) bruising Drug Allergy Active ENCOUNTERS from 1955 to 2020-11-17 Encounter Location Date Provider Diagnosis [address] [phone] [place] [address] 10 Nov, 2020 Kimani Ann Preoperative clearance [...] Language: Question Answer Notes Languages spoken: Namibian Confucianist: Question Answer Notes Confucianist 21 Taoist Sexual Hx: Question Answer Notes Had sex [...] directed subcutaneously qid for 30 Days 2020 Active Proventil HFA 108 (90 Base) [...] for 30 D ays Active Nystatin Powder 167812 UNIT 1 application to affected area Externally [...] as needed for 30 Days Active Ergocalciferol 50293 UNIT 1 capsule Orally every 14 days [...] directed Intravenous Active PROCEDURES from 1955 to 2020-11-17 Procedure Date Ordered Result Body Site ELECTROCARDIOGRAM, COMPLETE EKG 2020-11-14 N/A RESULTS Component Value Reference Range NT-PRO BNP Reviewed date:11/14/2020 17:42:23 Interpretation: Performing Lab:[facility] LABORATORY [address] [id number] , ,[place] [address] NT-PRO BNP 57 <125 CBC with Differential Reviewed date:11/14/2020 17:44:18 Interpretation: Performing Lab:[facility] LABORATORY [address] [address] , ,[place] [address] WHITE BLOOD COUNT 8.1 4.0-10.0 RED BLOOD [...] Profile (CMP) Reviewed date:11/14/2020 17:42:28 Interpretation: Performing Lab:[facility] LABORATORY [address] [address] , ,[place] [address] GLUCOSE, FASTING 64 70-100 BLOOD UREA NITROGEN [...] 1.2-2.2 FERRITIN Reviewed date:11/14/2020 17:42:20 Interpretation: Performing Lab:[facility] LABORATORY [address] [address] , ,[place] [address] FERRITIN 8 8-252 FREE T4 & TSH PANEL Reviewed date:11/14/2020 17:42:30 Interpretation: Performing Lab:[facility] LABORATORY [address] [place] [address] [id number] , ,[facility] THYROID STIMULATING HORMONE 1.320 0.358-3.740 FREE T4 1.10 0.76-1.46 MAGNESIUM LEVEL Reviewed date:11/14/2020 17:42:44 Interpretation: Performing Lab:[facility] LABORATORY [address] [place] [address] [id number] , ,[place] [address] MAGNESIUM LEVEL 2.0 1.8-2.4 PT & APTT Reviewed date:11/14/2020 17:42:46 Interpretation: Performing Lab:[facility] LABORATORY [address] [place] [address] [id number] , ,[place] [address] PROTHROMBIN TIME 12.5 12.7-14.5 INR 0.89 PARTIAL THROMBOPLASTIN TIME 27.5 25.9-37.0 UA URINALYSIS Reviewed date:11/14/2020 17:42:48 Interpretation: Performing Lab:[facility] LABORATORY [address] [place] [address] [id number] , ,[facility] URINE CULTURE Reviewed date:11/17/2020 08:38:40 Interpretation: Performing Lab:[facility] LABORATORY [address] [place] [address] [id number] , ,[facility] REASON FOR VISIT Pre op clearance for colonoscopy and endscopy-Dr. Varela-12/01/2042-ATQ-Vbegrnu, Rao morales @ [phone] fax # [phone] DX: D50.9, Z86.010, Z80.0,K21.9 MEDICAL (GENERAL) HISTORY [...] History hypertension-March 2006 no rmal cardiac catheterization-Dr. Stroud//04/[address]-Antecol Medical History history of [...] by Graciela Medical History R PE-dx at [facility]-CT A chest c "small pulmonary emboli to RU PA with areas of parenchymal disease suggestive of pulmonary infarction"- started in Xarelto 15 BID Medical History MRSA UTI-04/08/17 UCX >100K Medical History R distal femur comminuted fr acture sp mechanical fall sp [facility] laparoscopic cholecystectomy-Dr. Courtney January 2007 Surgical History EGD/colonoscopy-Dr. Varela- ild chemical gastritis, tubular adenoma, negative small bowel biopsy, melanosis coli November 2007 Surgical History CAREY/BSO October 2000 Surgical History lumbar laminectomy Surgical History rectocele repair Surgical History sinus surgery Surgical History TVT-Flaco 01/2012 Surgical History cystoscopy release of midure thral mesh 2 irritative voiding symptoms, incontinence since TVT placement 01/2012-Kait 11/20/2012 Surgical History Left knee arthroscopic-Fish 10/04/2013 Surgical History R foot hallux MTP fusion bun ion surgery c bone graft/pin- Dr.Frederick Zambrano-[facility] 06/25/16 Surgical History IM nail fo R distal femur re trograde approach [address] [facility] Surgical History left and right cataract removal- Dr. Miranda o[facility] 09/24 10/25 Hospitalization History hyperkalemia 9.3 with [...] - serial EK/T-I, telemetry 11/20- Hospitalization History Dorldv-wmfq-vw respiratory f ailure c desaturation to Sa)2 20% from same day surgery for R bunion surgery, then rehab at [facility] 06/25- Hospitalization History frequent falls-favoring 2 op iate overuse/misuse-CT cervical/head NAD/xray thoracic, LS, L hip NAD, stable CBCD, CMP, CIP/T-I, - telemetry, UDS + morphine, oxycodone; unresponsive episode requiring Narcan 0.8 to reverse 04/08-06/22 Hospitalization History mechanical fall sp R femur s p IM nail placement by Dr. Gao, tx [facility] 02/19- Hospitalization History P. mirabilis UTI c [...] per PE 04/29/20 Dr. Lizzeth Pemberton ENT [facility] performed silver nitrate cautery of R anterior septal bleed p removal of epistat ballon (during admission for acute blood loss anemia-hgb 7.8 2 epistaxis) Nov, Pulmonary embolism (ICD-10 - I26.99) No recurrent symptoms on chronic LD asa no previous VTE 11/14/20 held asa 81 given recurrent SEVERE epistaxis c secondary MARGOT requiring tx and IV Fe 04/12/[address] Wadsworth-agrees if - BLE DVT US, safe to dc DOAC which 04/13/17 was -; therefore, stopped 02/26/17 [facility] ER CTA chest stable RUL PE given recurrent CP 12/23/16 stopped ALL NSAIDs (including Celebrex as per lumbar DJD) and asa 81 12/22/16 Xarelto 15 BID x 21D (then 20 QD) started by [facility] for multiple small RUL PE-patient had been increaslingly immobile since 14H car ride 4W prior. Presented c sudden onset R pleuritic CP c increased DUARTE-D-dimer 0.96 (0.19-0.6), BNP 286 (0-125), hgb 11.0, normal PT/PTT/CMP 10 Nov, 2020 Hypothyroid (ICD-10 - E03.9) 11/14/20 1.3, 1.1 [...] 05/2011 BMD (at [facility]) 0.1/-0.1/-2.5, therefore CCR 10 Nov, 2020 Constipation, chronic (ICD-10 - K59.09) Stable on [...] Mcfadden to allow patient to return to [facility] GI given missed apts were 2 COVID and recurrent fractures (rib, tibia) and was in [facility] rehab. Additionally [facility] and she states she CANNOT travel to [place] [facility] and has apt c [place] in October (unknown date per px) 05/26/20 10.8, 90, christelle 5 05/22/20 Fe sucorse IV scheduled but px CX 04/30- [facility] admission for symptomatic acute blood loss anemia GI vs epistaxis-hgb 7.7, 90-tx 4u PRBCS, CTA AP, CXR NAD, leeann 200 QD held (but kept LD asa given ho B PE/sedentary lifestyle) and referred back to primary GI, Dr. Varela for EGD/colon; but per 05/15/20 TE, she was DC from [facility] GI practice Nov, DM2 (diabetes mellitus, [...] 13 11/201217 April 2011 LISA/creatinine of 17 10 Nov, 2020 Recurrent urinary tract infection (ICD-10 - N39. 0) prior on nitro [address] Buitrago 11/14/20 [facility] E coli >100K pansens c 4D malodorous urine; ergo, nitro 7D with urge incontinence an intrinsic sphincter deficiency (ISD) 06/02/19 UCX P. ariana >100K (R to NFN, tige) c sepsis 04/08/17 UCX MRSA >100K (res to tetra and clinda); therefore, Bactrim 5D (done 2D LUTS) and arranged fu sirena Bal given recurrent UTI who plans to repeat Botox 06/2017 UCX >100K E. faecalis UTI 04/2016 UCX E coli >100K; therefore nitro 10D 11/2015 [facility] Urology referred to Dr. Monica Bal for [...] prn mainly spinal/paraspinal +/- R>L knee h/o yrtxda-jhjebzg-szujccpdbpfo, recurrent opioid overuse/OUD Contingency: bup/nal 06/08/19 held [...] PT 03/14/[address] Gao Ortho [facility] 03/06/19 dc home on Lovenox 30 BID 14D, [...] N28.1) 12/2018 CT AP c contrast at [place]-ordered by Mally, Uro 10/2018 renal US: R [...] broad bulge, s stenosis, NCS per Dr. Sparks. 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 Ling, who planned lumbar epidural but deferred until p cleared by Neurology 05/01/14 given stable MRI LS spine c/w 07/12/12 MRI, referred to Dr. Ling Nov, Tibial plateau fracture, left (ICD-10 - S82.142A ) 03/2018 B ND plateau bu-yod-mefvgaeg per Dr. Shook pain R JL follows [...] FFM c 2L O2 bleed follows with Ermelinda for asthma/NICKI 08/06/17 tNPSG palliated at CPAP 6 c FP FFM 04/11/17 case dw Ermelinda who agreed c need for CPAP, but would have to restart c HST given CPAP was taken 2 non-compliance, HST was ordered by Roxanalin for 05/09/17, then NPSG 10/04/16 Dr. Wheeler [...] 2L NC [facility]hs [facility], Hyperalgesia (ICD-10 - R20.8) uvpiwh-blqmqdr-yswtyvrg off chronic opioids since ~05/2017Nov, Ataxia (ICD-10 - R27.0) Stable on home PT 04/08/17 upon leaving clinic patient collpased in parking lot 2 "BLE weakness"-she was transferred to [facility] for evaluation and admission for pain control/metcalf and probable STR 12/2014 referred for PT evaluation for scooter 10/31/[address] Nguyen ([facility] had referred to him 07/2014) who ordered MRI brain, BLE NCS, EEG 10 Nov, 2020 DJD (degenerative joint disease), cervical (ICD- 10 - M50.30) pain regimen as per CPS Patient refuses ACDF consideration offered by Dr. Lyles 09/20/17 TPI per Anuradha pack 75% pain reduction, but only for ~10D 10/10/15 Eduard recommended PT and to wean off narcotics given he feels they "amplify rather than control her pain" and "have no role in the management of long-term pain" 07/2015 given patient preferring non-surgical approach, advised f/u c Bolla t/c injection 12/12/[address] Lyles given MRI/NCS/PE, who 02/07/16 offered ACDF - but advised to have L rotator cuff repaired first 11/2014 NCS-Dr. Sparks-mild B median neuropathy localized to wrist, R mild-moderate chronic C8/T-1 radic 10 Nov, 2020 Gross hematuria (ICD-10 - R31.0) No recurrent hematuria 05/2017 normal cystoureteroscopy c B retrograde c IV Botox 01/08/17 CT AP hematuria protocol NAD x 2 cm R renal simple cyst 01/05/17 UCX NG 12/31/16 [facility] dx E. faecalis UTI (UCX >100K)-UA TNTC WBC/RBCs-started cephalexin 500 QID x 10D c slow improvement of hematuria, WBC 11.0 c normal diff, hgb 12.2, cr 0.8 12/23/16 new onset painless gross hematuria 06/2016 [facility] Nov, Hyperlipidemia (ICD-10 - E78.5) Contingency: ezet 07/04/20 65/73/92 09/2018 30/73/64 on rosuva 40 01/2018 92/48/206, 59, 0.4 12/2016 37/59/126, 82, 0.4 on rosuva 40 09/2016 182/68/138 on atorva 40; therefore, changed to rosuva 40, but i would not cover; therefore, patient paid for it OOP 02/2016 61/48/236, CPK 78 on atorvastatin 40 TSH as per hypo Nov, Gastroesophageal reflux dise ase, esophagitis presence not [...] Once a day for 30 day(s) Ergocalciferol 09451 UNIT 1 capsule Orally every 14 days [...] home PT03/14/[address] Gao Ortho [facility]03/06/19 dc home on Lovenox 30 BID 14D, oxy 5 disp 30 prn Folic acid deficiency 10/2017 12.5, 91, C Hr 35 s Fe03/2017 hgb 12.6, 8712/2016 6405/2015 B12 1307 s hryrodohrkpmivp32/2017 6765/2015 RBC folate 202, therefore started 1 mg qd Oral candidiasis recurrent oral ceasar diasis04/2018 + nystatin 5 ml QID x 14D Renal cyst 12/2018 CT AP c cont rast at [place]-ordered by Mally, Uro10/2018 renal US: R 15, 19, L 13 intermediate cysts-ordered by Mally Tibial plateau fracture, left 03/2018 B N D plateau pm-nig-hrajoylu per Dr. Ruiz pain R JLfollows with [...] TID to 10 TID11/[address] M. severe DJD s recurrent HNP, granulation, L4/5 [...] 75% pain reduction, but only for ~10D10/10/15 Chapa recommended PT and to wean off narcotics given he feels they "amplify rather than control her pain" and "have no role in the management of long-term pain"07/2015 given patient preferring non- surgical approach, advised f/u c Anuradha t/c edstqdrvs03/8/[address] Lyles given MRI/NCS/PE, who [...] lot 2 "BLE weakness"-she was transferred to [facility] for evaluation and admission for pain control/metcalf and probable STR12/2014 referred for PT evaluation for scooter10/31/[address] Nguyen ([facility] had referred to him 07/2014) who ordered MRI brain, BLE NCS, EEG Recurrent epistaxis recurrent R anterior bleed, does not use any nasal sprays, has humidifer on in house continously11/12/20 5H recurrence; ergo, 11/14/20 d/c asa 81 as per PE04/29/20 Dr. Lizzeth Pemberton ENT [facility] performed silver nitrate cautery of R anterior septal bleed p removal of epistat ballon (during admission for acute blood loss anemia-hgb 7.8 2 epistaxis) Hyperlipidemia Contingency: ezet4/3 65/73/927/2018 3073/64 on rosuva 92/48/206, 59, 0.410/2016 37/59/126, 82, 0.4 on rosuva 182/68/138 on atorva 40; therefore, changed to rosuva 40, but i would not cover; therefore, patient paid for it OOP02/2016 61/48/236, CPK 78 on atorvastatin 40TSH as per hypo Pulmonary embolism No recurrent symptom s on chronic LD asano previous VTE9/10/21 held asa 81 given recurrent SEVERE epistaxis c secondary MARGOT requiring tx and IV Fe2 case dw Dr. Wadsworth-agrees if - BLE DVT US, safe to dc DOAC which 04/13/17 was -; therefore, gjjcofe54/23/17 [facility] ER CTA chest stable RUL PE given recurrent CP12/23/16 stopped ALL NSAIDs (including Celebrex as per lumbar DJD) and asa Xarelto 15 BID x 21D (then 20 QD) started by [facility] for multiple small RUL PE-patient had [...] onset painless gross hematuria06/2016 [facility] Hypothyroid 11/14/20 1.3, [...] surgery Osteoporosis sp ZA x 2: 04/04/19, repeat DXA10/25/18 -0.4/-0.5/-1.7 c -5/-4/11% change cw [...] 750 x 1 c repeat BW in 10D10/21/20 10.9, christelle 7, r30/1. 11.8, 90, christelle 7 s sup07/04/[address] Mcfadden to allow patient to return to [facility] GI given missed apts were 2 COVID and recurrent fractures (rib, tibia) and was in [facility] rehab. Additionally [facility]'s [facility] and she states she CANNOT travel to [place] 2 pain and has apt [place] in October (unknown date per px)05/26/20 10.8, 90, christelle Fe sucorse IV scheduled but px CX04/30- [facility] admission for symptomatic acute blood loss anemia GI vs epistaxis-hgb 7.7, 90-tx 4u PRBCS, CTA AP, CXR NAD, leeann 200 QD held (but kept LD asa given ho B PE/sedentary lifestyle) and referred back to primary GI, Dr. Varela for EGD/colon; but per 05/15/20 TE, she was DC from [facility] GI practice Insomnia Stable on ami 25, me l 8 QHS04/12/17 zolpidem 5 held as per OSA12/2015 changed trazadone 200 to zolpidem 5 qhs (given no benefit c trazadone) Asthma, severe persistent Stable on FP/s al 250/50 1 BID, CS 2 TID c alb MDI prnfollows with Dr. Wadsworth Hyperalgesia aziuiy-mnmfudf-vqski christian off chronic opioids since ~05/2017 NICKI (obstructive sleep apnea) Encouraged compliance c CPAP 6 cm via FFM c 2L O2 bleedfollows with Roxanalin for asthma/OSA08/06/17 tNPSG palliated at CPAP 6 c FP FF04/11/17 case dw Ermelinda who agreed c need for CPAP, but would have to restart c HST given CPAP was taken 2 non-compliance, HST was ordered by Rechtiago for 05/09/17, then NPSG10/04/16 Dr. Wheeler felt [...] BID10/2017 8.1; therefore, + glim 1 BID09/2016 11February 2011 LISA/creatinine of 17 Recurrent urinary tract infection prior on nitro [address] Buitrago11/14/20 [facility] E coli >100K pansens c 4D malodorous urine; ergo, nitro 7Dwith urge incontinence an intrinsic sphincter deficiency (ISD)06/02/19 [...] Monica Bal for treatment options, for 05/2016 UDS11/20- K. pneumonia UTI/SIRS rxed c Macrobi03/24/15 held Macrobid [address] Tiwari given increased cr and using abx as per asthma Chronic pain syndrome Stable on dulox 60 BID, frank 800 TID, baclo 10 QID prn, cyclo 5 TID prnmainly spinal/paraspinal +/- R>L kneeh/o deqidw-uwcjdrg-qjbfjytuxudo, recurrent opioid overuse/OUDContingency: bup/nal06/08/19 held nor 25 QHS given overlap c dulox, cyclo and escital referred for MM trial to Dr. Saleem Treatment Notes Test Name Order Date H PYLORI SERUM QUANT IGM 2020-11-14 H PYLORI SERUM QUANT IgG SANGEETHA 2020-11-14 Future Test Test Name Order Date CBC with Differential [id number] FERRITIN [id number] Next Appt Details 3M, BW NOW Reason: Provider Name:Kimani Ann, 2021-03-20 1 1:45:00 AM, [address], , [place], [address], Insurance Providers Payer Name Payer Address Payer Phone Insured Name Patient Relati onship to Insured Coverage Start Date Coverage End Date [facility] [employer] [facility] [address] [facility] [id number] CASSIE ARTHUR self
--- OUTSIDE RECORDS SUMMARY | 2020-12-25 16:49 | CCD | Continuity of Care Document ---
Author Author Trini DUBOSE [facility] Organization Unknown Address [address] [facility], [address] [place] [address] Phone [phone] Care Team Providers Care Bicycle Mechanic Name Role Phone Kimani Ann M.D. AUTM [phone] AUTM Unavailable Problems Active Problems Provider Date Uncomplicated severe persistent asthma Andrea Wadsworth DO Onset: 07/04/2019 Long-term current use of inhaled steroid Nabeel Vitale Onset: 07/04/2019 Long-term current use of systemic steroid Andrea Wadsworth DO Onset: 07/04/2019 Obstructive sleep apnea syndrome Andrea Wadsworth DO Onset: 07/04/2019 Social History Type Date Description Comments Sex Unknown ETOH Use Never used alcohol Tobacco Use Start: Unknown Patient has never smoked Smoking Status Reviewed: 10/08/20 Patient has never smoked Allergies, Adverse Reactions, Alerts Active Allergies Criticality Reaction | Severity Comments Date TeQuin Unable to assess criticality 08/26/2010 Gonzalo-24 Unable to assess criticality spinkles 08/26/2010 Rosuvastatin Calcium Unable to assess criticality 09/06/2017 Zocor Unable to assess criticality 09/06/2017 Vioxx Unable to assess criticality 09/06/2017 Medications Active Medications SIG Qnty Indications Ordering Provide r Date Magnesium Citrate 1.745GM/30ML Mimi ution take one 10 ounce bottle prior to procedure for additional bowel prep per instructions. 296ml Andrea Varela MD 11/11/2020 Miralax 17GM/Scoop Powder use as instructed by doctor for bowel prep 510gm Andrea Varela MD 11/11/2020 Miralax 17GM/Scoop Powder take 17 grams by mouth once daily. 510units K59.04 Andrea Varela MD 10/15/2020 Albuterol Sulfate HFA 108(90Base) mcg/Act Aerosol 2 puffs four times a day as needed 8.500gm Andrea Wadsworth, 04/25/2020 Albuterol Sulfate (2 .5mg/3ML) 0.083% Nebulizer 1 vial four times a day as needed 360ml J45.50 Andrea Wadsworth, 07/12/2019 Rozerem 8mg Tablets 1 by mouth every night at bedtime Unknown Cromolyn Sodium 20mg/2ML Nebulizer tid Unknown Breo Ellipta 200-25mcg/Inh Aerosol 1 inhalation every day 60units J45.50 Andrea Wadsworth, Colace 100mg Capsules 2 bid Unknown Baclofen 10mg Tablets 1 tab by mouth four times a day as needed Unknown Senna Plus 8.6-50mg Tablets Take 2 tabs po once daily. Unknown Amitriptyline HCL 25mg Tablets Take One Tablet By Mouth @8PM Unknown Cyclobenzaprine HCL 10mg Tablets tid prn Unknown Tamsulosin HCL 0.4mg Capsules 1 by mouth every day Unknown Rosuvastatin Calcium 40mg Tablets 1 by mouth every day Unknown Magnesium Oxide 400mg Tablets bid Unknown Glimepiride 4mg Tablets bid Unknown Reclast 5mg/100ML Solution Unknown Lexapro 10mg Tablets 1 by mouth every day Unknown Metformin HCL 850mg Tablets 1 by mouth twice a day Unknown Gabapentin 800mg Tablets 1 by mouth three times a day Unknown Folic Acid 1mg Tablets 1 tab by mouth every day Unknown Potassium Chloride 20Meq Tab 1 tab by mouth every day Unknown Ergocalciferol 47151Djjt Capsules 1 every other week Unknown Indapamide 2.5mg Tablets 1 tab by mouth every day Unknown Aspirin 81mg Chewtabs 1 tab by mouth every day Unknown Multivitamins Tablets 1 tab by mouth every day Unknown Pulmicort 0.5mg/2ML Suspension 1 vial via nebulizer three times a day 90Respule Unknown Synthroid 75mcg Tablets 1 tab by mouth every day Unknown Ferrous Sulfate 325(65Fe) mg Table ts 1 tab by mouth twice a day Unknown Nexium 20mg Capsules DR 2 tab by mouth every day 3Month Unknown Cymbalta 60mg Caps DR Part 1 tab by mouth every day Unknown Immunizations Description No Information Available Vital Signs Date Vital Result Comment 10/15/2020 1:22pm BP Systolic 112 mmHg BP Diastolic 64 mmHg Height 66 inches 5'6" Weight 228.00 lb BMI (Body Mass Index) 36.8 kg/m2 [place] Body Weight 130 lb Weight 103.421 kg BSA (Body Surface Area) 2.11 m2 10/08/2020 9:59am BP Systolic 132 mmHg BP Diastolic 84 mmHg Heart Rate 95 /min O2 % BldC Oximetry 96 % Height 66 inches 5'6" Weight 224.00 lb BMI (Body Mass Index) 36.2 kg/m2 [place] Body Weight 130 lb Weight 101.606 kg BSA (Body Surface Area) 2.10 m2 Results Test Acquired Date Facility Test Result H/L Range Note Complete Blood Count 10/21/2020 [facility] Main Lab [address] [place] [address] [phone] White Blood Count 7.7 10 Normal 4.0-10.0 Red Blood Count 4.17 10 Normal 4.00-5.40 Hemoglobin 11.0 g/dL Low 12.0-15.5 Hematocrit 35.5 % Low 36.0-47.0 Mean Corpuscular Volume 85.1 fl Normal 80.0-96.0 Mean Corpuscular Hemoglobin 26.4 pg Low 27.0-33.0 Mean Corpuscular HGB Conc 31.0 g/dL Low 32.0-36.5 Red Cell Distribution Width 15.9 % High 11.5-14.5 Platelet Count, Automated 346 10 Normal 150-450 Nucleated Red Blood Cell % 0.0 % Normal 0-0 1 Total Iron Binding Capacit 10/21/2020 [facility] Main Lab [address] [place] [address] [phone] Iron (Fe) 35 g/dL Low 50-170 Total Iron Binding Capacity 487 g/dL High 250-450 Percent Saturation 7.2 % Low 13.2-45.0 2 BUN & Creatinine ([facility]) 10/21/2020 [facility] Main Lab [address] [place] [address] [phone] Blood Urea Nitrogen 14 mg/dL Normal 7-18 Creatinine With GFR 10/21/2020 [facility] Main Lab [address] [place] [address] [phone] Creatinine For GFR 0.72 mg/dL Normal 0.55-1.30 Glomerular Filtration Rate > 60.0 Normal >45 3 , 4 FVL/Maurilio 10/08/2020 [employer] PDFReport SEE IMAGE FVC-Pred 3.44 L FVC-Pre 2.38 L FVC-%Pred-Pre 69 L FVC-LLN 2.70 L Fev1-Pred 2.64 L Fev1-Pre 1.77 L Fev1-%Pred-Pre 67 L Fev1-LLN 2.01 L Fev6-Pred 3.31 L Fev6-Pre 2.35 L Fev6-%Pred-Pre 71 L Fev6-LLN 2.59 L Egt3ggh-Ftxp 77 % Bab9dex-Jud 74 % Eeu7mhb-%Pred-Pre 96 % Cap5ucx-TRE 67 % Vam2ayb-Bihs 96 % Wxa8yrn-Cdc 99 % Jes5acu-%Pred-Pre 102 % FEFMax-Pred 6.37 L/E/sec FEFMax-Pre 5.14 L/E/sec FEFMax-%Pred-Pre 80 L/E/sec FEFMax-LLN 4.55 L/E/sec Ply2406-Bxub 2.29 L/E/sec Znc5184-Lhv 1.30 L/E/sec Uxw1145-%Pred-Pre 56 L/E/sec Cvg0590-RGI 0.97 L/E/sec ExpTime-Pre 7.83 sec Gqw1fmm9-Pkkk 80 % Vbg2hhr4-Qba 75 % Ylf3sfu7-%Pred-Pre 93 % Zxz3fhw2-KLB 71 % 1 11/11/20 (TueNov 11) 09:16 A M ERICA DUBOSE Continues to have anemia. Will further evaluate. 2 11/11/20 (TueNov 11) 09:16 A M ERICA DUBOSE Iron deficiency noted. Continue to take iron supplement as directed. Will further evaluate. 3 Units are mL/min/1.73 m2 Chronic Kidney Disease Staging per NKF: Stage I & II GFR >=60 Normal to Mildly Decreased Stage III GFR 30-59 Moderately Decreased Stage IV GFR 15-29 Severely Decreased Stage V GFR <15 Very Little GFR Left ESRD GFR <15 on MACHINE CLERICAL VERIFIER 4 11/11/20 (TueNov 11) 09:17 A M ERICA DUBOSE Renal function appears to be normal. Procedures Date Code Description Status 10/15/2020 65433 Office/Outpatient New Moderate M DM 45-59 Minutes Completed 10/08/2020 52056 Office/Outpatient Established Mo d MDM 30-39 Min Completed 10/08/2020 71943 Spirometry Completed Medical Devices Description No Information Available Encounters Type Date Location Provider Dx Diagnosis Office Visit 10/15/2020 1:00p [facility] Erica Dubose, RPA-C D50.9 Iron deficiency anemia, unsp ecified Z86.010 Personal history of colonic polyps Z80.0 Family history of malignant neoplasm of digestive organs K21.9 Gastro-esophageal reflux dis ease without esophagitis K59.04 Chronic idiopathic constipat ion Office Visit 10/08/2020 9:30a [facility] Pulmonary/Thoracic D paige Wadsworth DO J45.50 Severe persistent asthma, un complicated Assessments Date Code Description Provider 10/15/2020 D50.9 Iron deficiency anemia, unspecif ied Erica Dubose, RPA-C 10/15/2020 Z86.010 Personal history of colonic poly ps Erica Dubose, RPA-C 10/15/2020 Z80.0 Family history of malignant neop lasm of digestive organs Erica Dubose, RPA-C 10/15/2020 K21.9 Gastro-esophageal reflux disease without esophagitis Erica Dubose, RPA-C 10/15/2020 K59.04 Chronic idiopathic constipation Erica Dubose, RPA-C 10/08/2020 J45.50 Severe persistent asthma, uncomp licated Andrea Wadsworth, 10/07/2020 J45.50 Severe persistent asthma, uncomp licated Andrea Wadsworth, DO 10/07/2020 G47.33 Obstructive sleep apnea (adult) (pediatric) Andrea Wadsworth DO Plan of Treatment Future Appointment(s):* 12/01/2020 2:10 pm - Andrea Varela MD at [facility] 10/08/2020 - Andrea Wadsworth, DO* J45.50 Severe persistent asthma, uncomplicated * * New Labs:* FVL/Electra, Ordered: 10/08/20 * Comments:* ~ Having reviewed the history, physical, and diagnostic findings with the patient, her current inhaled medications are appropriate, and she does appear to be benefiting from them. Her exacerbations appear to be environmentally related. She has not had allergy testing in many years. Perhaps this would be helpful to identify with allergic triggers. We will recommend allergy referral to her primary care provider. Routine follow-up visit here will be in six months with spirometry flow volume loop testing. * Follow up:* Recommend allergy referral. Continue current Rx. Routine follow-up in six months with spirometry/FVL please. Functional Status Description No Information Available Mental Status Description No Information Available Referrals Refer to Reason for Referral Status Appt Date Andrea Wadsworth D.O. asthma/anthony Scheduled 10/09/19 [facility] Pulmonary [address] [place], [place] [address] [phone] Andrea Varela M.D. UPPER GI BLEED - COFFEE GROU ND EMESIS K92.2-GASTROINTESTINAL HEMORRHAGE, UNSPECIFIED Scheduled 08/01/2020 [facility], Gastroenterology [address], [address] [place] [address] [phone]
--- OUTSIDE RECORDS SUMMARY | 2020-12-25 16:49 | CCD ---
Author Author [facility] Organization [facility] Address Unknown Phone Unavailable Care Team Providers Care Lard Maker Name Role Phone Kimani Ann Unavailable PROBLEMS Type Condition ICD9-CM Code UUH36-KD Code Onset Dates Condition S tatus W/U Status Risk SNOMED Code Notes Problem Depression F32.9 Active confirmed 28901573 Problem Insomnia G47.00 Active confirmed 755299253 Problem Breast cancer screening Z12.39 Active confirmed 133478237 Problem Gastroesophageal reflux disease, esophagitis pre sence not specified K21.9 Active confirmed 639468985 Problem Folic acid deficiency E53.8 Active confirmed 272887938 Problem NICKI (obstructive sleep apnea) G47.33 Active confirm ed 43216482 Problem Osteoporosis M81.0 Active confirmed 0535997 6 Problem Tibial plateau fracture, left S82.142A Active confi rmed 46409011 Problem Vitamin D deficiency E55.9 Active confirmed 70131749 Problem Oral candidiasis B37.0 Active confirmed 797 47721 Problem Hypothyroid E03.9 Active confirmed 91143485 Problem Fibromyalgia M79.7 Active confirmed 0716633 05 Problem Hypertension I10 Active confirmed 8100612 3 Problem Other disturbances of skin sensation R20.8 Act андрей confirmed 20467876 Problem Hyperalgesia R20.8 Active confirmed 5238994 8 Problem Hypothyroidism, unspecified E03.9 Active confirmed 51251804 Problem Ataxia R27.0 Active confirmed 01786975 Problem Mixed hyperlipidemia E78.2 Active confirmed 242601938 Problem Asthma, severe persistent J45.50 Active confirmed 673060164 Problem Essential tremor G25.0 Active confirmed 609 388046 Problem Hyperlipidemia E78.5 Active confirmed 69411 004 Problem Diabetes mellitus without me ntion of complication, type II or unspecified type, not stated as uncontrolled 250.00 Activ e confirmed 806596644 Problem Diastolic CHF I50.30 Active confirmed 342736 008 Problem Chronic pain syndrome G89.4 Active confirmed 068070218 Problem Recurrent urinary tract infection N39.0 Active confirmed 458607392 Problem Constipation, chronic K59.09 Active confirmed 048899796 Problem Impingement syndrome of both shoulders M75.41 A ctive confirmed 969192853 Problem 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 Active confirmed 4 95652911 Problem Falls frequently R29.6 Active confirmed 279 640057 Problem Primary osteoarthritis of right knee M17.11 Act андрей confirmed 280098624155513 Problem Anemia, iron deficiency D50.9 Active confirmed 85349555 Problem Wrist fracture, left, sequela S62.102S Active confi rmed 259998480 Problem Recurrent epistaxis R04.0 Active confirmed 504368226 Problem Colon polyp K63.5 Active confirmed 70148365 Problem DM2 (diabetes mellitus, type 2) E11.9 Active confi rmed 35323915 Problem Pulmonary embolism I26.99 Active confirmed 5 9411565 Problem DJD (degenerative joint disease), cervical M50.30 Active confirmed 45445093 Problem Primary osteoarthritis of both knees M17.0 Act андрей confirmed 033401832 Problem Menopausal and female climacteric states N95.1 Active confirmed 408765688 Problem DJD (degenerative joint disease), lumbar M47.816 Active confirmed 822865766 Problem Anxiety F41.9 Active confirmed 60281932 Problem Constipation, unspecified constipation type K59.00 Active confirmed 31359355 ALLERGIES Allergen (clinical drug ingredient) Drug/Non Drug Allergy do cumented on EMR Reaction Allergy Type Onset Date Status tequin pruritis Non Drug Allergy Active Zocor 10 Anaphylaxis Drug Allergy Active puneet sprinkles head ache Non Drug Allergy Active Vioxx (for allergy use only) bruising Drug Allergy Active ENCOUNTERS from 1955 to 2020-12-19 Encounter Location Date Provider Diagnosis [place] [address] [facility] [phone] [place] [address] Dec, Kimani Ann IMMUNIZATIONS Vaccine Route Administration [...] School Language: Question Answer Notes Languages spoken: Italian Yarsanism: Question Answer Notes Yarsanism 21 Buddhism Sexual Hx: Question Answer Notes Had sex [...] prn for 30 Days Active Nystatin Powder 790621 UNIT 1 application to affected area Externally [...] at bedtime for 30 Days Active Ergocalciferol 73011 UNIT 1 capsule Orally every 14 days [...] instability-June 2010 normal nerve conduction studies bilateral extremities-[facility] Medical History anemia, iron [...] by Graciela Medical History R PE-dx at [facility]-CT A chest c "small pulmonary emboli to RU PA with areas of parenchymal disease suggestive of pulmonary infarction"- started in Xarelto 15 BID Medical History MRSA UTI-04/08/17 UCX >100K Medical History R distal femur comminuted fr acture sp mechanical fall [facility]-Dr. Courtney January [...] trograde approach [address] Gao-[facility] 02/20/19 Surgical History left and right cataract removal- Dr. Miranda oms-[facility] 09/24 10/25 Hospitalization History hyperkalemia 9.3 with [...] - serial EK/T-I, telemetry 11/20- Hospitalization History Roadoq-utwi-ea respiratory f ailure c desaturation to Sa)2 20% from same day surgery for R bunion surgery, then rehab at [facility] 06/25- Hospitalization History frequent falls-favoring 2 op iate overuse/misuse-CT cervical/head NAD/xray thoracic, LS, L hip NAD, stable CBCD, CMP, CIP/T-I, - telemetry, UDS + morphine, oxycodone; unresponsive episode requiring Narcan 0.8 to reverse 04/08-06/22 Hospitalization History mechanical fall sp R femur s p IM nail placement by Dr. Gao, tx [facility] 02/19- Hospitalization History P. mirabilis UTI [...] Once a day for 30 day(s) Ergocalciferol 25264 UNIT 1 capsule Orally every 14 days [...] Name:Kimani Ann, 2021-03-20 1 1:45:00 AM, [address] [facility], , [place], [address], Insurance Providers Payer Name Payer Address Payer Phone Insured Name Patient Relati onship to Insured Coverage Start Date Coverage End Date [facility] [employer] [facility] [address] [facility] [phone] CASSIE ARTHUR self
--- OUTSIDE RECORDS SUMMARY | 2020-12-25 16:50 | CCD | Continuity of Care Document ---
Author Author Trini ROJO PA-C Organization Unknown Address [address] [place] [address] [address] [place] [address] Phone [phone] Care Team Providers Care Power Sewing Machine Operator Name Role Phone Kimani Ann MD AUT [phone] Problems Active Problems Provider Date Plantar fascial [...] 1 by mouth every day Unknown Ergocalciferol 27458Tjyo Capsules 1 by mouth once a week [...] Available Procedures Date Code Description Status 10/23/2020 88711 Office/Outpatient Established Mo d MDM 30-39 Min Completed 10/23/2020 99947 X-Ray Knee Ap & Lateral W/Obliqu es Three Views Completed 10/23/2020 25241 X-Ray Knee Ap & Lateral W/Obliqu es Three Views Completed 10/23/2020 82947 Inject/Drain Joint/Bursa Major C ompleted 07/25/2020 65665 Inject/Drain Joint/Bursa Major C ompleted Medical Devices Description No Information Available Encounters Type Date Location Provider Dx Diagnosis Office Visit 10/23/2020 1:15p [facility] Ro[facility] PA-C M1 7.0 Bilateral primary osteoarthritis of knee Office Visit 07/25/2020 10:30a [facility] Rojo PA-C M1 7.0 Bilateral primary osteoarthritis [...] PRIMARY OSTEOARTHRITIS OF KNE E Created [address] [facility], [address] [place] [address] [phone]
--- OUTSIDE RECORDS SUMMARY | 2020-12-25 16:50 | CCD | Continuity of Care Document ---
Author Author Trini WADSWORTH DO Organization Unknown Address [address] [place] [address] Phone [phone] Care Team Providers Care Support Merchandiser Name Role Phone Kimani Ann M.D. AUTM [phone] AUTM Unavailable Problems Active Problems Provider Date [...] Comments Date TeQuin 08/26/2010 Gonzalo-24 spinkles 08/26/2010 Rosuvastatin Calcium 018 Zocor 09/06/2017 Vioxx 09/06/2017 Medications Active Medications SIG Qnty Indications Ordering Provide r Date Albuterol Sulfate HFA 108(90Base) mcg/Act Aerosol 2 puffs four times a day as needed 8.500gm Andrea Wadsworth DO 04/25/2020 Albuterol Sulfate (2 .5mg/3ML) 0.083% Nebulizer 1 vial four times a day as needed 360ml J45.50 Andrea Wadsworth DO 07/12/2019 Cromolyn Sodium 20mg/2ML Nebulizer tid Unknown Reclast 5mg/100ML Solution Unknown Glimepiride 4mg Tablets bid Unknown Magnesium Oxide 400mg Tablets bid Unknown Rosuvastatin Calcium 40mg Tablets 1 by mouth every day Unknown Tamsulosin HCL 0.4mg Capsules 1 by mouth every day Unknown Cyclobenzaprine HCL 10mg Tablets tid prn Unknown Amitriptyline HCL 25mg Tablets Take One Tablet By Mouth @8PM Unknown Senna Plus 8.6-50mg Tablets Take 2 tabs po once daily. Unknown Baclofen 10mg Tablets 1 tab by mouth four times a day as needed Unknown Colace 100mg Capsules 2 bid Unknown Breo Ellipta 200-25mcg/Inh Aerosol 1 inhalation [...] tab by mouth every day Unknown Ergocalciferol 82988Acro Capsules 1 every other week Unknown Indapamide [...] Available Vital Signs Date Vital Result Comment 10/08/2020 9:59am BP Systolic 132 mmHg BP Diastolic 84 mmHg Heart Rate 95 /min O2 % BldC Oximetry 96 % Height 66 inches 5'6" Weight 224.00 lb BMI (Body Mass Index) 36.2 kg/m2 [place] Body Weight 130 lb Weight 101.606 kg BSA (Body Surface Area) 2.10 m2 03/12/2020 10:11am BP Systolic 126 mmHg BP Diastolic 76 mmHg Heart Rate 88 /min O2 % BldC Oximetry 98 % Room Air Height 66 inches 5'6" Weight 229.00 lb BMI (Body Mass Index) 37.0 kg/m2 [place] Body Weight 130 lb Weight 103.874 kg BSA (Body Surface Area) 2.12 m2 Results Test Acquired Date Facility Test Result H/L Range Note FVL/[place] 10/08/2020 [employer] PDFReport SEE IMAGE FVC-Pred 3.44 L FVC-Pre 2.38 L FVC-%Pred-Pre 69 L FVC-LLN 2.70 L Fev1-Pred 2.64 L Fev1-Pre 1.77 L Fev1-%Pred-Pre 67 L Fev1-LLN 2.01 L Fev6-Pred 3.31 L Fev6-Pre 2.35 L Fev6-%Pred-Pre 71 L Fev6-LLN 2.59 L Wbb7evk-Vost 77 % Toe9ryu-Dmo 74 % Ged6dyz-%Pred-Pre 96 % Ogp0vgw-ZPQ 67 % Zjz3hgh-Fgql 96 % Mye9ipl-Ajl 99 % Hvy0aba-%Pred-Pre 102 % FEFMax-Pred 6.37 L/E/sec FEFMax-Pre 5.14 L/E/sec FEFMax-%Pred-Pre 80 L/E/sec FEFMax-LLN 4.55 L/E/sec Ibp0066-Cmxl 2.29 L/E/sec Rnv4835-Vvx 1.30 L/E/sec Zfl1039-%Pred-Pre 56 L/E/sec Ipo9350-MOP 0.97 L/E/sec ExpTime-Pre 7.83 sec Qdh4ykl5-Guny 80 % Wot2ioj3-Tyq 75 % Yev5imj7-%Pred-Pre 93 % Pfr0gxo4-DTX 71 % Procedures Date Code Description Status 10/08/2020 87309 Office/Outpatient Established Mo d MDM 30-39 Min Completed 10/08/2020 82679 Spirometry Completed Medical Devices Description No Information Available Encounters Type Date Location Provider Dx Diagnosis Office Visit 10/08/2020 9:30a [facility] Pulmonary/Thoracic D paige Wadsworth DO J45.50 Severe persistent asthma, un complicated Assessments Date Code Description Provider 10/08/2020 J45.50 Severe persistent asthma, uncomp licated Andrea Wadsworth, 10/07/2020 J45.50 Severe persistent asthma, uncomp licated Andrea Wadsworth, DO 10/07/2020 G47.33 Obstructive sleep apnea (adult) (pediatric) Andrea Wadsworth DO Plan of Treatment 10/08/2020 - Andrea Wadsworth DO* J45.50 Severe persistent asthma, uncomplicated * * New Labs:* FVL/Maurilio, Ordered: 10/08/20 * Comments:* ~ Having reviewed [...] Dr Reason for Referral Status Appt Date Andrea Wadsworth D.O. asthma/anthony Scheduled 10/09/19 [facility] Pulmonary [address] [place], [place] [address] [phone] Andrea Varela M.D. UPPER GI BLEED - COFFEE GROU ND EMESIS K92.2-GASTROINTESTINAL HEMORRHAGE, UNSPECIFIED Scheduled 08/01/2020 [facility], Gastroenterology [address], [address] [place] [address] [phone]
--- OUTSIDE RECORDS SUMMARY | 2020-12-25 16:50 | CCD | Continuity of Care Document ---
Author Author Trini [facility] Organization Unknown Address [address], [address] [place] [address] Phone [phone] Care Team Providers Care Presser First Name Role Phone Kimani Ann M.D. AUTM [phone] AUTM Unavailable Problems Active Problems Provider Date [...] SIG Qnty Indications Ordering Provide r Date Miralax 17GM/Scoop Powder take 17 grams by [...] tab by mouth every day Unknown Ergocalciferol 34818Dtox Capsules 1 every other week Unknown Indapamide [...] lb BMI (Body Mass Index) 36.8 kg/m2 [place] Body Weight 130 lb Weight 103.421 kg BSA (Body Surface Area) 2.11 m2 10/08/2020 9:59am BP Systolic 132 mmHg BP Diastolic 84 mmHg Heart Rate 95 /min O2 % BldC Oximetry 96 % Height 66 inches 5'6" Weight 224.00 lb BMI (Body Mass Index) 36.2 kg/m2 [place] Body Weight 130 lb Weight 101.606 kg BSA (Body Surface Area) 2.10 m2 Results Test Acquired Date Facility Test Result H/L Range Note FVL/Maurilio 10/08/2020 [facility] SEE IMAGE FVC-Pred 3.44 L FVC-Pre 2.38 L FVC-%Pred-Pre 69 L FVC-LLN 2.70 L Fev1-Pred 2.64 L Fev1-Pre 1.77 L Fev1-%Pred-Pre 67 L Fev1-LLN 2.01 L Fev6-Pred 3.31 L Fev6-Pre 2.35 L Fev6-%Pred-Pre 71 L Fev6-LLN 2.59 L Dey3lin-Kxvz 77 % Tzw9noz-Cnl 74 % Ngn0rvm-%Pred-Pre 96 % Kxq3yqw-TMN 67 % Uiy3zpy-Jpfg 96 % Alb7qsg-Cek 99 % Nei2oyz-%Pred-Pre 102 % FEFMax-Pred 6.37 L/E/sec FEFMax-Pre 5.14 L/E/sec FEFMax-%Pred-Pre 80 L/E/sec FEFMax-LLN 4.55 L/E/sec Oql0126-Fzdn 2.29 L/E/sec Upn8014-Wan 1.30 L/E/sec Bqe5272-%Pred-Pre 56 L/E/sec Tmu5491-LJA 0.97 L/E/sec ExpTime-Pre 7.83 sec Neh9ofh2-Tshm 80 % Hot1ehu5-Jxs 75 % Vtb4xed3-%Pred-Pre 93 % Bld5xph1-HUZ 71 % Procedures Date Code Description Status 10/08/2020 36681 Office/Outpatient Established Mo d MDM 30-39 Min Completed 10/08/2020 21668 Spirometry Completed Medical Devices Description No Information Available Encounters Type Date Location Provider Dx Diagnosis Office Visit 10/08/2020 9:30a [facility]Thoracic D paige Wadsworth, J45.50 Severe persistent asthma, un complicated Assessments Date Code Description Provider 10/15/2020 D50.9 Iron deficiency anemia, unspecif ied Erica DuboseGURPREET-C 10/15/2020 Z86.010 Personal history of colonic poly ps Erica AllenGURPREET velasquez-C 10/15/2020 Z80.0 Family history of malignant neop lasm of digestive organs Erica DuboseGURPREET-C 10/15/2020 K21.9 Gastro-esophageal reflux disease without esophagitis Erica AllenGURPREET velasquez-C 10/15/2020 K59.04 Chronic idiopathic constipation Erica Alleneva RPA-C 10/08/2020 J45.50 Severe persistent asthma, uncomp licated Andrea Wadsworth, 10/07/2020 J45.50 Severe persistent asthma, uncomp licated Andrea Wadsworth, 10/07/2020 G47.33 Obstructive sleep apnea (adult) (pediatric) Andrea Wadsworth DO Plan of Treatment 10/15/2020 - Erica AllencallyaravindTOSHIA* D50.9 Iron deficiency anemia, unspecified * Z86.010 Personal history of colonic polyps * Z80.0 Family history of malignant neoplasm of digestive organs * K21.9 Gastro-esophageal reflux disease without esophagitis * K59.04 Chronic idiopathic constipation * * New Labs:* Complete Blood Count, Ordered: 10/15/20 * Total Iron Binding Capacit, Ordered: 10/15/20 * New Orders:* Colonoscopy, Ordered: 10/15/20 * Endoscopy, Ordered: 10/15/20 * Comments:* Will arrange for upper endoscopy and colonoscopy. Reviewed risks and benefits of the procedures, as well as other options, with the patient. Prep for this procedure was discussed with patient, including risks and side effects associated with the prep. A letter will be sent to Dr. Ann requesting a medical clearance prior to the procedure. Patient verbalized understanding of all of the above and is in agreement to proceed. Patient will seek medical attention for any acute changes. Will monitor. Functional Status Description No Information Available Mental Status Description No Information Available Referrals Refer to Reason for Referral Status Appt Date Andrea Wadsworth D.O. asthma/anthony Scheduled 10/09/19 [facility] Pulmonary [address] [place], [place] [id number] [phone] Andrea Varela M.D. UPPER GI BLEED - COFFEE GROU ND EMESIS K92.2-GASTROINTESTINAL HEMORRHAGE, UNSPECIFIED Scheduled 08/01/2020 [facility], Gastroenterology [address], [address] [place], [place] [id number] [phone]
--- OUTSIDE RECORDS SUMMARY | 2020-12-25 16:50 | CCD | Continuity of Care Document ---
Author Author Trini ROJO PA-C Organization Unknown Address [address] [place] [address] [address] [place] [address] Phone [phone] Care Team Providers Care Glue Bone Crusher Name Role Phone Kimani Ann MD AUT [phone] Problems Active Problems Provider Date Plantar fascial [...] 1 by mouth every day Unknown Ergocalciferol 59172Tapw Capsules 1 by mouth once a week [...] Available Procedures Date Code Description Status 10/23/2020 82870 Office/Outpatient Established Mo d MDM 30-39 Min Completed 10/23/2020 73019 X-Ray Knee Ap & Lateral W/Obliqu es Three Views Completed 10/23/2020 84224 X-Ray Knee Ap & Lateral W/Obliqu es Three Views Completed 10/23/2020 83141 Inject/Drain Joint/Bursa Major C ompleted 07/25/2020 81047 Inject/Drain Joint/Bursa Major C ompleted Medical Devices Description No Information Available Encounters Type Date Location Provider Dx Diagnosis Office Visit 10/23/2020 1:15p [place] [facility] [facility] M1 7.0 Bilateral primary osteoarthritis of knee Office Visit 07/25/2020 10:30a [place] PA-[facility] M1 7.0 Bilateral primary osteoarthritis [...] PRIMARY OSTEOARTHRITIS OF KNE E Created [address], [address] [place] [address] [phone]
--- OUTSIDE RECORDS SUMMARY | 2020-12-25 16:50 | CCD ---
Author Author [employer] Organization [facility] Address Unknown Phone Unavailable Care Team Providers Care Medical Doctor Nuclear Medicine Name Role Phone Kimani Ann Unavailable PROBLEMS Type Condition ICD9-CM Code [id number] Code Onset Dates Condition S tatus W/U Status Risk SNOMED Code Notes Problem Fibromyalgia M79.7 Active confirmed 7130026 05 Problem Breast cancer screening Z12.39 Active confirmed 159510881 Problem Depression F32.9 Active confirmed 24004627 Problem Folic acid deficiency E53.8 Active confirmed 209589630 Problem Insomnia G47.00 Active confirmed 785106011 Problem Osteoporosis M81.0 Active confirmed 3061551 6 Problem Gastroesophageal reflux disease, esophagitis pre sence not specified K21.9 Active confirmed 028011450 Problem Oral candidiasis B37.0 Active confirmed 797 46297 Problem Hypothyroid E03.9 Active confirmed 48189017 Problem Chronic pain syndrome G89.4 Active confirmed 653213872 Problem Recurrent urinary tract infection N39.0 Active confirmed 222875199 Problem Hypertension I10 Active confirmed 8416739 3 Problem Vitamin D deficiency E55.9 Active confirmed 67102771 Problem Hyperalgesia R20.8 Active confirmed 3743801 8 Problem Pulmonary embolism I26.99 Active confirmed 5 1937917 Problem Mixed hyperlipidemia E78.2 Active confirmed 708778672 Problem Asthma, severe persistent J45.50 Active confirmed 703560054 Problem Other disturbances of skin sensation R20.8 Act андрей confirmed 50002858 Problem DJD (degenerative joint disease), lumbar M47.816 Active confirmed 920016138 Problem Diabetes mellitus without me ntion of complication, type II or unspecified type, not stated as uncontrolled 250.00 Activ e confirmed 064760803 Problem Impingement syndrome of both shoulders M75.41 A ctive confirmed 125895276 Problem Hypothyroidism, unspecified E03.9 Active confirmed 48958761 Problem Ataxia R27.0 Active confirmed 61971208 Problem Constipation, chronic K59.09 Active confirmed 934695132 Problem Hyperlipidemia E78.5 Active confirmed 98843 004 Problem Essential tremor G25.0 Active confirmed 609 566687 Problem Diastolic CHF I50.30 Active confirmed 575375 008 Problem Tibial plateau fracture, left S82.142A Active confi rmed 76074191 Problem 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 Active confirmed 4 50316368 Problem Falls frequently R29.6 Active confirmed 279 232502 Problem Constipation, unspecified constipation type K59.00 Active confirmed 42929034 Problem Colon polyp K63.5 Active confirmed 09928598 Problem Anemia, iron deficiency D50.9 Active confirmed 58957494 Problem NICKI (obstructive sleep apnea) G47.33 Active confirm ed 99888743 Problem DJD (degenerative joint disease), cervical M50.30 Active confirmed 98238105 Problem Wrist fracture, left, sequela S62.102S Active confi rmed 465607600 Problem Primary osteoarthritis of right knee M17.11 Act андрей confirmed 841680571887821 Problem Primary osteoarthritis of both knees M17.0 Act андрей confirmed 095764781 Problem DM2 (diabetes mellitus, type 2) E11.9 Active confi rmed 21698529 Problem Menopausal and female climacteric states N95.1 Active confirmed 136730889 Problem Anxiety F41.9 Active confirmed 95129052 ALLERGIES Allergen (clinical drug ingredient) Drug/Non Drug Allergy do cumented on EMR Reaction Allergy Type Onset Date Status tequin pruritis Non Drug Allergy Active Zocor 10 Anaphylaxis Drug Allergy Active puneet sprinkles head ache Non Drug Allergy Active Vioxx (for allergy use only) bruising Drug Allergy Active ENCOUNTERS from 1955 to 2020-11-04 Encounter Location Date Provider Diagnosis [address] [phone] [place] [address] Oct, Kimani Ann IMMUNIZATIONS Vaccine Route Administration [...] School Language: Question Answer Notes Languages spoken: Cam[place]onian Confucianism: Question Answer Notes Confucianism 21 Baptism Sexual Hx: Question Answer Notes Had sex [...] day for 30 Days Active Nystatin Powder 223545 UNIT 1 application to affected area Externally twice daily under juan breasts for 30 day(s) Active Cyclobenzaprine HCl 5 MG 1 tab Orally TID prn for 30 Days Active Proventil HFA 108 (90 Base) MCG/ACT 2 puffs Inhalation 4 times a day as needed for 30 Days Active Tamsulosin HCl 0.4 MG 1 capsule Orally Once a day for 30 day(s) Active Baclofen 10 MG as directed Orally four times daily for 30 Days Active Cromolyn Sodium 20 MG/2ML 2 ml Inhalation Three times a day for 30 da ys Active DULoxetine HCl 60 MG 1 capsule Orally bid for 30 Days Active Amitriptyline HCl 25 mg 1 tab Orally at bedtime for 30 Days Active Esomeprazole Magnesium 20 MG 2 capsules Orally every morning for 30 D ays Active Aspirin 81 MG 1 tablet Orally Once a day for 28 Active Gabapentin 800 MG 1 tablet Orally Three times a day for 30 Days Active Senna Plus 8.6-50 MG 2 tablet in the evening as n eeded Orally Once a day for 30 Days Active Rozerem 8 mg 1 tablet at bedtime Orally Daily at bedt elke as needed for 30 Days Active Magnesium Oxide 400 (240 Mg) MG TAKE ONE TABLET BY NELSON TH @8AM and TAKE ONE TABLET @8PM for 28 Active Reclast 5 MG/100ML as directed Intravenous Active SITagliptin Phosphate 100 MG 1 tablet Orally Once a day for 30 Days Active Blood Glucose Test - as directed subcutaneously qid for 30 Days Oct, Active Polyethylene Glycol - 8 gm orally [...] subcutaneously qid for 30 Days 2020 Active Escitalopram Oxalate 10 MG 1 tablet Orally Once a day for 28 Active Ergocalciferol 53527 UNIT 1 capsule Orally every 14 days for 30 Days Active Glucometer as directed DX: E11.9 Daily for 90 day(s) 2020 Active Folic Acid 1 MG 1 tablet Orally Once a day for 30 Days Active Blood Glucose Test One touch as directed SQ Twice a day DX 250 for 90 days Active Indapamide 2.5 MG 1 tablet by [...] Information RESULTS No Results REASON FOR VISIT lost glucose meter MEDICAL (GENERAL) HISTORY Type Description Date Medical [...] carpal tunnel syndrome//06/2013 - RF/CCP/NETTE/ ML DJD, ricadro L5/S1 s compression Medical History T2DM NID [...] normal nerve conduction studies bilateral extremities-[facility] Medical History anemia, iron deficiency Medical History [...] by Graciela Medical History R PE-dx at [facility]-CT A chest c "small pulmonary emboli to RU PA with areas of parenchymal disease suggestive of pulmonary infarction"- started in Xarelto 15 BID Medical History MRSA UTI-04/08/17 UCX >100K Medical History R distal femur comminuted fr acture sp mechanical fall sp [facility] laparoscopic cholecystectomy-Dr. Courtney January 2007 [...] trograde approach [address] [facility] History hyperkalemia 9.3 with mild [...] - serial EK/T-I, telemetry 11/20- Hospitalization History Qvbpok-daup-wc respiratory f ailure c desaturation to Sa)2 20% from same day surgery for R bunion surgery, then rehab at [facility] 06/25- Hospitalization History frequent falls-favoring 2 op iate overuse/misuse-CT cervical/head NAD/xray thoracic, LS, L hip NAD, stable CBCD, CMP, CIP/T-I, - telemetry, UDS + morphine, oxycodone; unresponsive episode requiring Narcan 0.8 to reverse 04/08-06/22 Hospitalization History mechanical fall sp R femur s p IM nail placement by Dr. Gao, tx [facility] 02/19- Hospitalization History P. mirabilis [...] 50 MG 1 cap Orally at bedtime Escitalopram Oxalate 10 MG 1 tablet Orally Once a day for 30 Day s Advair Diskus 250-50 MCG/DOSE 1 puff Inhalation Twice a day for 30 Days Rozerem 8 mg 1 tablet at bedtime Orally Daily at bedt elke as needed for 30 Days Blood Glucose Test - as directed subcutaneously qid for 30 Days Oct, Potassium chloride 20 meq 1 tab(s) orally Once a day for 30 Days Indapamide 2.5 MG 1 tablet by mouth Once a day for 30 Days Ergocalciferol 70419 UNIT 1 capsule Orally every 14 days [...] Provider Name:Kimani Ann, 2020-11-12 0 1:30:00 PM, [address] [place] [address], , [place], [address], Insurance Providers Payer Name Payer Address Payer Phone Insured Name Patient Relati onship to Insured Coverage Start Date Coverage End Date [facility] [employer] [facility] [address] [facility] [address] CASSIE ARTHUR self
--- OUTSIDE RECORDS SUMMARY | 2020-12-25 16:50 | CCD ---
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 Name Role Phone Kimani nAn Unavailable PROBLEMS Type Condition ICD9-CM Code TCJ10-SP Code Onset Dates Condition S tatus W/U Status Risk SNOMED Code Notes Problem Fibromyalgia M79.7 Active confirmed 0213611 05 Problem Breast cancer screening Z12.39 Active confirmed 278128473 Problem Depression F32.9 Active confirmed 31357314 Problem Folic acid deficiency E53.8 Active confirmed 764534647 Problem Insomnia G47.00 Active confirmed 604294793 Problem Osteoporosis M81.0 Active confirmed 1790623 6 Problem Gastroesophageal reflux disease, esophagitis pre sence not specified K21.9 Active confirmed 280818896 Problem Oral candidiasis B37.0 Active confirmed 797 31266 Problem Hypothyroid E03.9 Active confirmed 71159316 Problem Chronic pain syndrome G89.4 Active confirmed 265904464 Problem Recurrent urinary tract infection N39.0 Active confirmed 764868396 Problem Hypertension I10 Active confirmed 4690344 3 Problem Vitamin D deficiency E55.9 Active confirmed 93694646 Problem Hyperalgesia R20.8 Active confirmed 1432533 8 Problem Pulmonary embolism I26.99 Active confirmed 5 0357257 Problem Mixed hyperlipidemia E78.2 Active confirmed 856211918 Problem Asthma, severe persistent J45.50 Active confirmed 543911205 Problem Other disturbances of skin sensation R20.8 Act андрей confirmed 15543490 Problem DJD (degenerative joint disease), lumbar M47.816 Active confirmed 813162051 Problem Diabetes mellitus without me ntion of complication, type II or unspecified type, not stated as uncontrolled 250.00 Activ e confirmed 377078818 Problem Impingement syndrome of both shoulders M75.41 A ctive confirmed 410289487 Problem Hypothyroidism, unspecified E03.9 Active confirmed 95952998 Problem Ataxia R27.0 Active confirmed 31307284 Problem Constipation, chronic K59.09 Active confirmed 419747627 Problem Hyperlipidemia E78.5 Active confirmed 58471 004 Problem Essential tremor G25.0 Active confirmed 609 165011 Problem Diastolic CHF I50.30 Active confirmed 601231 008 Problem Tibial plateau fracture, left S82.142A Active confi rmed 02176635 Problem 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 Active confirmed 4 57524183 Problem Falls frequently R29.6 Active confirmed 279 199118 Problem Constipation, unspecified constipation type K59.00 Active confirmed 79764690 Problem Colon polyp K63.5 Active confirmed 22257678 Problem Anemia, iron deficiency D50.9 Active confirmed 18278490 Problem NICKI (obstructive sleep apnea) G47.33 Active confirm ed 48320290 Problem DJD (degenerative joint disease), cervical M50.30 Active confirmed 66528320 Problem Wrist fracture, left, sequela S62.102S Active confi rmed 098367032 Problem Primary osteoarthritis of right knee M17.11 Act андрей confirmed 610294528118630 Problem Primary osteoarthritis of both knees M17.0 Act андрей confirmed 695654892 Problem DM2 (diabetes mellitus, type 2) E11.9 Active confi rmed 27501577 Problem Menopausal and female climacteric states N95.1 Active confirmed 626646615 Problem Anxiety F41.9 Active confirmed 96804699 ALLERGIES Allergen (clinical drug ingredient) Drug/Non Drug Allergy do cumented on EMR Reaction Allergy Type Onset Date Status tequin pruritis Non Drug Allergy Active Zocor 10 Anaphylaxis Drug Allergy Active puneet sprinkles head ache Non Drug Allergy Active Vioxx (for allergy use only) bruising Drug Allergy Active ENCOUNTERS from 1956 to 2020-10-23 Encounter Location Date Provider Diagnosis [address] [phone] [place] [address] Oct, Kimani Ann Preoperative clearance Z01.8 18 ; Osteoporosis M81.0 ; Constipation, chronic K59.09 [...] cervical M50.30 ; Gross hematuria R31.0 ; Pulmonary embolism I26.99 ; Hyperlipidemia E78.5 ; Gastroesophageal reflux disease, esophagitis presence not specified K21.9 ; Impingement syndrome of both shoulders M75.41 ; Insomnia G47.00 ; Depression F32.9 ; Breast cancer screening Z12.39 ; Hypothyroid E03.9 ; Vitamin D deficiency E55.9 ; Hypertension [...] Language: Question Answer Notes Languages spoken: Italian Jainism: Question Answer Notes Jainism 21 Rastafarian Sexual Hx: Question Answer Notes Had sex in the last 12 months (vaginal, oral, or anal)? No Have you ever had an STD? No Alcohol Screening: Question Answer Notes Did you have a drink containing alcohol in the past year? No Points 0 Interpretation Negative Tobacco Use: Question Answer Notes Are you a: never smoker REASON FOR REFERRAL No Information VITAL SIGNS Weight 225.8 lbs Oct, Weight-kg 102.42 kg Oct, Height 66 in Oct, BMI 36.44 kg/m2 Oct, Heart Rate 105 /min Oct, Respiratory Rate 18 /min Oct, Temperature 97.4 degrees Fahrenheit Oct, Oximetry 97% Oct, Blood pressure systolic 128 mm Hg Oct, Blood pressure diastolic 62 mm Hg 17 Oct, 2020 MEDICATIONS Medication SIG (Take, Route, Frequency, Duration) Notes Start Da te End Date Status metFORMIN HCl 850 mg 1 tablet by mouth Twice a day for 30 Days Active DULoxetine HCl 60 MG 1 capsule Orally bid for 30 Days Active Amitriptyline HCl 25 mg 1 tab Orally at bedtime for 30 Days Active Proventil HFA 108 (90 Base) MCG/ACT 2 puffs Inhalation 4 times a day as needed for 30 Days Active Aspirin 81 MG 1 tablet Orally Once a day for 28 Active Gabapentin 800 MG 1 tablet Orally Three times a day for 30 Days Active Cromolyn Sodium 20 MG/2ML 2 ml Inhalation Three times a day for 30 da ys Active Senna Plus 8.6-50 MG 2 tablet in the evening as n eeded Orally Once a day for 30 Days Active Rozerem 8 mg 1 tablet at bedtime Orally Daily at bedt elke as needed for 30 Days Active Esomeprazole Magnesium 20 MG 2 capsules Orally every morning for 30 D ays Active Reclast 5 MG/100ML as directed Intravenous Active SITagliptin Phosphate 100 MG 1 tablet Orally Once a day for 30 Days Active Blood Glucose Test One touch as directed SQ Twice a day DX 250 for 90 days Active Magnesium Oxide 400 (240 Mg) MG [...] four times daily for 30 Days Active Levothyroxine Sodium 75 [...] a day for 30 Da ys Active Tamsulosin HCl 0.4 MG 1 capsule Orally Once a day for 30 day(s) Active Escitalopram Oxalate 10 MG 1 tablet Orally Once a day for 28 Active Ergocalciferol 55258 UNIT 1 capsule Orally every 14 days for 30 Days Active Folic Acid 1 MG 1 tablet Orally Once a day for 30 Days Active Nystatin Powder 112311 UNIT 1 application to affected area Externally twice daily under juan breasts for 30 day(s) Active Cyclobenzaprine HCl 5 MG 1 tab Orally TID prn for 30 Days Active Indapamide 2.5 MG [...] Information RESULTS No Results REASON FOR VISIT pre op clearance for right cataract- lit- 10/29/2082-BOE-Czvyn-, Craig @ fax # [phone] DX: H25.11 MEDICAL (GENERAL) HISTORY Type Description Date Medical [...] instability-June 2010 normal nerve conduction studies [facility] Medical History anemia, iron deficiency [...] mechanical fall sp IM otis placement-02/20/19 Dr. Gao-[facility] Surgical History laparoscopic cholecystectomy-Dr. Courtney [...] trograde approach [address] Gao-[facility] 02/20/19 Hospitalization History hyperkalemia 9.3 [...] - serial EK/T-I, telemetry 11/20- Hospitalization History Yufhil-isfk-fh respiratory f ailure c desaturation to Sa)2 [...] Notes Treatment Notes Treatm ent Clinical Notes Oct, Preoperative clearance (ICD-10 - Z01.818) On 07/04/20 the patient had a stable CBCD and CMP. On 04/29/20 the patient's EKG revealed normal sinus rhythm at 100 beats per minute, no hypertrophy, normal axis and diffuse repolarization abnormality similar to 03/21/18 EKG. On the AM of the surgery, the patient will take Advair and esomeprazole with a sip of water. The patient will hold aspirin and ANY NSAID for five (5) days prior to surgery. The patient is currently medically optimized for the above surgery. By the modified RCRI, the patient's 30 day MACE risk is 4%. The patient wishes to assume this risk and proceed with the above surgery. Oct, Osteoporosis (ICD-10 - M81.0) sp ZA x 2: 04/04/19, 12/22/1803/2020 repeat DXA 10/25/18 -0.4/-0.5/-1.7 c -5/-4/11% change cw 01/2016; therefore, + ZA given dyspepsia c po BP 01/2016 0/-0.2/-2.4 c -2.8-/0.4/0.6% change c/w 06/2013; therefore, 04/2016 stopped Fosamax 70 qW for 2Y holiday (ricardo given dyspepsia) 06/2013 0.2/-0.2/-2.5 c 0.2/-1.1/0.2% change c/w 05/2011 therefore CCR 05/2011 BMD (at [facility]) 0.1/-0.1/-2.5, therefore CCR Oct, Constipation, chronic (ICD-10 - K59.09) Stable on PG 8, sen/doc BID prn Oct, Anemia, iron deficiency (ICD-10 - D50.9) C: IV Fe (intolerant to any po Fe given severe chronic constipation) 07/04/20 11.8, 90, christelle 7 s sup 07/04/[address] Mcfadden to allow patient to return to [facility] GI given missed apts were 2 COVID and recurrent fractures (rib, tibia) and was in [facility] rehab. Additionally only other GI in town does NOT take px's insurance and she states she CANNOT travel to [place] pain and has apt c [place] in October (unknown date per px) 05/26/20 10.8, 90, christelle 5 05/22/20 Fe sucorse IV scheduled but px CX 04/30- [facility] admission for symptomatic acute blood loss anemia GI vs epistaxis-hgb 7.7, 90-tx 4u PRBCS, CTA AP, CXR NAD, leeann 200 QD held (but kept LD asa given ho B PE/sedentary lifestyle) and referred back to primary GI, Dr. Varela for EGD/colon; but per 05/15/20 TE, she was DC from [facility] GI practice Oct, DM2 (diabetes mellitus, type 2) (ICD-10 - E11.9) Contingency: defer SGLT given UTI risk, DPP4 to GLP 10/21/20 hypo unawareness c RBG 3; ergo, held glim 4 BID 07/04/20 6.6 09/2018 7.3; therefore, to 4 BID 04/2018 increased to 2 BID 10/2017 8.1; therefore, + glim 1 BID 09/2016 13 11/201217 April 2011 LISA/creatinine of Oct, Recurrent urinary tract infection (ICD-10 - N39. 0) No recurrent symptoms on nitro 50 QHS per Iftikhar with urge incontinence an intrinsic sphincter deficiency [...] cr and using abx as per asthma Oct, Chronic pain syndrome (ICD-10 - G89.4) Stable on dulox 60 BID, frank 800 TID, baclo 10 QID prn, cyclo 5 TID prn mainly spinal/paraspinal +/- R>L knee h/o vtdzks-btotubl-avsxmavywvxq, recurrent opioid overuse/OUD Contingency: bup/nal 06/08/19 held nor 25 QHS given overlap c dulox, cyclo and escitalo 04/2018 referred for MM trial to Dr. Saleem Oct, Diastolic CHF (ICD-10 - I50.30) Euvolemic on indap 2.5 qAM Caution c K/Mg given h/o severe unexplained hyperK 07/04/20 11/0.6, 4.7, BNP 79 04/2016 4.4, 2.0, 0.9 on K 20 qd, MOX 400 BID 07/2015 4.8, 2.0 c cr 0.7 10/2013 4.7, 1.6 on K 20 qd, MOX 400 BID 05/2012 K 3.3 and Mg 1.6 therefore 20 and 400 BID started Oct, Primary osteoarthritis of both knees (ICD-10 - M 17.0) Stable on diclo 1% QID B knees prn Oct, Closed right hip fracture (ICD-10 - S72.001A) Stable pain on current regimen per Dr. Gao, home PT 03/14/[address] Gao Ortho [facility] 03/06/19 wv home on Lovenox 30 BID 14D, oxy 5 disp 30 prn Oct, Arthritis of foot (ICD-10 - M19.079) 09/2018 B new onset, favor 2 tight mid foot shoes, no precedent trauma; therefore, + PT [facility] and + diclo 1% QID Contingency: repeat rheum metcalf, MRI 10/25/18 B feet xray "severe erosive changes MT heads, mild 2-5 phalanges" 06/2013 -CCP, eGmini Oct, Renal cyst (ICD-10 - N28.1) 12/2018 CT AP c contrast at [place]-ordered by Mike Bal 10/2018 renal US: R 15, 19, L 13 intermediate cysts-ordered by Mally Oct, Oral candidiasis (ICD-10 - B37.0) recurrent oral candidiasis 04/2018 + nystatin 5 ml QID x 14D Oct, DJD (degenerative joint disease), lumbar (ICD-10 - [...] c/w 07/12/12 MRI, referred to Dr. Ling Oct, Tibial plateau fracture, left (ICD-10 - S82.142A ) 03/2018 B ND plateau gd-ric-llspqyaf per Dr. Shook pain R JL follows with Dr. Harris Oct, Colon polyp (ICD-10 - K63.5) repeat colon 11/2022-R Oct, Essential tremor (ICD-10 - G25.0) Stable off clon Oct, Asthma, severe persistent (ICD-10 - J45.50) Stable on FP/jewel 250/50 1 BID, CS 2 TID c alb MDI prn follows with Dr. Wadsworth Oct, NICKI (obstructive sleep apnea) (ICD-10 - G47.33) Encouraged compliance c CPAP 6 cm via FFM c 2L O2 bleed follows with Ermelinda for asthma/NICKI 08/06/17 tNPSG palliated at CPAP 6 c FP FFM 04/11/17 case dw Rechlin who agreed c need [...] 2L NC qhs started at d/c per [facility] Oct, Hyperalgesia (ICD-10 - R20.8) pwnjlu-tzusazx-bnkyflvb off chronic opioids since ~05/2017Oct, Ataxia (ICD-10 - R27.0) Stable on home PT 04/08/17 upon leaving clinic patient collpased in parking lot 2 "BLE weakness"-she was transferred to [facility] for evaluation and admission for pain control/metcalf and probable STR 12/2014 referred for PT evaluation for scooter 10/31/[address] Nguyen (Driggs had referred to him 07/2014) who ordered MRI brain, BLE NCS, EEG Oct, DJD (degenerative joint disease), cervical (ICD- 10 [...] to wrist, R mild-moderate chronic C8/T-1 radic Oct, Gross hematuria (ICD-10 - R31.0) No recurrent [...] painless gross hematuria 06/2016 [facility] Oct, Pulmonary embolism (ICD-10 - I26.99) No recurrent symptoms on chronic LD asa no previous VTE 04/12/[address] Wadsworth-agrees if - BLE DVT US, safe to dc DOAC which 04/13/17 was -; therefore, stopped 02/26/17 [facility] ER CTA chest stable RUL PE given recurrent CP 12/23/16 stopped ALL NSAIDs (including Celebrex as per lumbar DJD) and asa 81 12/22/16 Xarelto 15 BID x 21D (then 20 QD) started by [facility] for multiple small RUL PE-patient had been increaslingly immobile since 14H car ride 4W prior. Presented c sudden onset R pleuritic CP c increased DUARTE-D-dimer 0.96 (0.19-0.6), BNP 286 (0-125), hgb 11.0, normal PT/PTT/CMP Oct, Hyperlipidemia (ICD-10 - E78.5) Contingency: ezet 07/04/20 65/73/92 09/2018 30/73/64 on rosuva 40 01/2018 92/48/206, 59, 0.4 12/2016 37/59/126, 82, 0.4 on rosuva 40 09/2016 182/68/138 on atorva 40; therefore, changed to rosuva 40, but i would not cover; therefore, patient paid for it OOP 02/2016 61/48/236, CPK 78 on atorvastatin 40 TSH as per hypo Oct, Gastroesophageal reflux dise ase, esophagitis presence not specified (ICD-10 - K21.9) Stable on eso 40 qAM (2 20 qAM) 04/2016 given ~2M increased PP bloating and intermittent LUQ tenderness and held Fosamax 70 qW Oct, Impingement syndrome of both shoulders (ICD-10 - M75.41) pain regimen as per lumbar DJD R>>L 10/2015 Dr. Chapa repeated MRI which revealed "partial thickness tear, some AC arthritis, SA effusion" and recommended PT 03/25/2015 Dr. Ceballos referred to Dr. Barker SOS-04/18/15 apt who referred for PT and felt patient was not a candidate for either shoulder surgery and recommended cervical surgery Oct, Insomnia (ICD-10 - G47.00) Stable on ami 25, marlen 8 QHS 04/12/17 zolpidem 5 held as per NICKI 12/2015 changed trazadone 200 to zolpidem 5 qhs (given no benefit c trazadone) Oct, Depression (ICD-10 - F32.9) Stable on escital 10 and dulox as per CPS Oct, Breast cancer screening (ICD-10 - Z12.39) 10/2018 B C1 mammogram 09/22/20, 07/04/20 gave mammo order Oct, Hypothyroid (ICD-10 - E03.9) 05/26/20 2.2, 1.2 09/2018 2.9, 1.0 on 75 01/2018 2.8, 1.0 12/2016 1.1, 1.3 on 75 07/2015 1.9 on 75 QD Oct, Vitamin D deficiency (ICD-10 - E55.9) 01/2018 62, 10.2, 48 10/2017 73, 9.5, 82 12/2016 59, 9.4, 90-? 1HPT 03/2015 42, 9.0, PTH 75 on D2 50K q14D Oct, Hypertension (ICD-10 - I10) stable on regimen as per CHF K/Mg/cr as per CHF Oct, Folic acid deficiency (ICD-10 - E53.8) 10/2017 12.5, 91, CHr 35 s Fe 03/2017 hgb 12.6, 87 12/2016 640 07/2014 B12 1307 s supplementation 12/2016 676 07/2014 RBC folate 202, therefore started 1 mg qd Oct, Fibromyalgia (ICD-10 - M79.7) regimen as per chronic pain syndrome PLAN OF TREATMENT Medication Medication Name Sig Start Date Stop Date Reclast 5 MG/100ML as directed Intravenous DULoxetine HCl 60 MG 1 capsule Orally bid for 30 Days Polyethylene Glycol - 8 gm orally in 8 oz liquid daily for 30 Da ys Senna Plus 8.6-50 MG 2 tablet in the evening as n eeded Orally Once a day for 30 Days Baclofen 10 MG as directed Orally four times daily for 30 Days Gabapentin 800 MG 1 tablet Orally Three times a day for 30 Days Cyclobenzaprine HCl 5 MG 1 tab Orally TID prn for 30 Days SITagliptin Phosphate 100 MG 1 tablet Orally Once a day for 30 D ays Amitriptyline HCl 25 mg 1 tab Orally at bedtime for 30 Days Escitalopram Oxalate 10 MG 1 tablet Orally Once a day for 30 Day s Rozerem 8 mg 1 tablet at bedtime Orally Daily at bedt elke as needed for 30 Days Proventil HFA 108 (90 [...] 50 MG 1 cap Orally at bedtime Advair Diskus 250-50 MCG/DOSE 1 puff Inhalation Twice a day for 30 Days Potassium chloride 20 meq 1 tab(s) orally Once a day for 30 Days Indapamide 2.5 MG 1 tablet by mouth Once a day for 30 Days Ergocalciferol 98130 UNIT 1 capsule Orally every 14 days [...] mouth Twice a day for 30 Days Folic Acid 1 MG 1 tablet Orally Once a day for 30 Days Cromolyn Sodium 20 MG/2ML 2 ml Inhalation Three times a day for 30 days Treatment Notes Assessment Notes Clinical Notes DJD (degenerative joint disease), lumbar 09/08/17 B SIJ [...] c/w 07/12/[address], [address] Ling Oral candidiasis recurrent oral ceasar diasis04/2018 + nystatin 5 ml QID x 14D Fibromyalgia regimen as per chron ic pain syndrome Colon polyp repeat colon 11/2022- R Tibial plateau fracture, left 03/2018 B N D plateau tc-mhy-kifmfhyr per Dr. Ruiz pain R JLfollows with Dr. Harris Asthma, severe persistent Stable on FP/s al 250/50 1 BID, CS 2 TID c alb MDI prnfollows with Dr. Wadsworth Essential tremor Stable off clon Hyperalgesia qeeccp-zkespgr-yvgrn christian off chronic opioids since ~05/2017 NICKI (obstructive sleep apnea) Encouraged compliance c CPAP 6 cm via FFM c 2L O2 bleedfollows with Ermelinda for asthma/OSA08/06/17 tNPSG palliated at CPAP 6 c FP FF04/11/17 case sue Wadsworth who agreed c need for CPAP, but would have to restart c HST given CPAP was taken 2 non-compliance, HST was ordered by Rechlin for 05/09/17, then NPSG10/04/16 Dr. Wheeler felt CPAP was "strongly recommended" and would attempt to requalify her for use06/2016 diagnostic c Rechlin titrated to CPAP 5 c O2 2L bleed, but CPAP taken away 2 non-compliance per Shanna's / checked HST c SILVESTRE 119 noc ox whie hospitalized c UTI/SIRS c mean 88% c desat to 69%; therefore, 02 2L NC qhs started at d/c per [facility] Vitamin D deficiency 01/2018 62, 10.2, 4 73, 9.5, 8212/2016 59, 9.4, 90-? 1HPT03/2015 42, 9.0, PTH 75 on D2 50K q14D Hypothyroid 05/26/20 2.2, 1.27/ 19 2.9, 1.0 on 7501/2018 2.8, 1.010 1.1, 1.3 on 1.9 on 75 QD Renal cyst 12/2018 CT AP c cont rast at [place]-ordered by Mally, Uro10/2018 renal US: R 15, 19, L 13 intermediate cysts-ordered by Mally Folic acid deficiency 10/2017 12.5, 91, C Hr 35 s Fe03/2017 hgb 12.6, 8710 6405/2015 B12 1307 s jiimlkugkvouuoo22/2017 6765/2015 RBC folate 202, therefore started 1 mg qd Arthritis of foot 09/2018 B new onset, favor 2 tight mid foot shoes, no precedent trauma; therefore, + PT [facility] and + diclo 1% QIDContingency: repeat rheum metcalf, MRI10/25/18 B feet xray "severe erosive changes MT heads, mild 2-5 phalanges"06/2013 -CCP, Gemini Hypertension stable on regimen as per CHFK/Mg/cr as per CHF Hyperlipidemia Contingency: ezet4/3 65/73/927 3073/64 on rosuva 40103/2017 92/48/206, 59, 0.410/2016 37/59/126, 82, 0.4 on rosuva 182/68/138 on atorva 40; therefore, changed to rosuva 40, but i would not cover; therefore, patient paid for it OOP02/2016 61/48/236, CPK 78 on atorvastatin 40TSH as per hypo Preoperative clearance On 07/04/20 the pa eugene had a stable CBCD and CMP. On 04/29/20 the patient's EKG revealed normal sinus rhythm at 100 beats per minute, no hypertrophy, normal axis and diffuse repolarization abnormality similar to 03/21/18 EKG. On the AM of the surgery, the patient will take Advair and esomeprazole with a sip of water. The patient will hold aspirin and ANY NSAID for five (5) days prior to surgery. The patient is currently medically optimized for the above surgery. By the modified RCRI, the patient's 30 day MACE risk is 4%. The patient wishes to assume this risk and proceed with the above surgery. Pulmonary embolism No recurrent symptom s on chronic LD asano previous VTE04/12/[address] Wadsworth-agrees if - BLE DVT US, safe to dc DOAC which 04/13/17 was -; therefore, odjtgut59/23/17 [facility] ER CTA chest stable RUL PE given recurrent CP12/23/16 stopped ALL NSAIDs (including Celebrex as per lumbar DJD) and asa Xarelto 15 BID x 21D (then 20 QD) started by [facility] for multiple small RUL PE-patient had been increaslingly immobile since 14H car ride 4W prior. Presented c sudden onset R pleuritic CP c increased DUARTE-D-dimer 0.96 (0.19-0.6), BNP 286 (0-125), hgb 11.0, normal PT/PTT/CMP Osteoporosis sp ZA x 2: 04/04/19, 12/22/ repeat DXA10/25/18 -0.4/-0.5/-1.7 c -5/-4/11% change cw 01/2016; therefore, + ZA given dyspepsia c po BP103/2015 0/-0.2/-2.4 c -2.8-/0.4/0.6% change c/w 06/2013; therefore, 04/2016 stopped Fosamax 70 qW for 2Y holiday (ricardo given dyspepsia)06/2013 0.2/-0.2/-2.5 c 0.2/-1.1/0.2% change c/w 05/2011 therefore CCR05/2011 BMD (at [facility]) 0.1/-0.1/-2.5, therefore CCR Impingement syndrome of both shoulders p ain regimen as per lumbar DJDR>>L10/2015 Dr. Chapa repeated MRI which revealed "partial thickness tear, some AC arthritis, SA effusion" and recommended PT03/25/2015 Dr. Ceballos referred to Dr. Barker SOS-04/18/15 apt who referred for PT and felt patient was not a candidate for either shoulder surgery and recommended cervical surgery Constipation, chronic Stable on PG 8, se n/doc BID prn Gastroesophageal reflux disease, esophagitis presence not sp ecified Stable on eso 40 qAM (2 20 qAM)04/2016 given ~2M increased PP bloating and intermittent LUQ tenderness and held Fosamax 70 qW Anemia, iron deficiency C: IV Fe (intole rant to any po Fe given severe chronic constipation)07/04/20 11.8, 90, christelle 7 s sup07/04/20 attempt to [address] to Dr. Mcfadden to allow patient to return to [facility] GI given missed apts were 2 COVID and recurrent fractures (rib, tibia) and was in [facility] rehab. Additionally [facility] px's insurance and she states she CANNOT travel to [place] pain and has apt [place] in October (unknown date per px)05/26/20 10.8, 90, christelle Fe sucorse IV scheduled but px CX/- [facility] admission for symptomatic acute blood loss anemia GI vs epistaxis-hgb 7.7, 90-tx 4u PRBCS, CTA AP, CXR NAD, leeann 200 QD held (but kept LD asa given ho B PE/sedentary lifestyle) and referred back to primary GI, Dr. Varela for EGD/colon; but per 05/15/20 TE, she was DC from [facility] GI practice Depression Stable on escital 10 and dulox as per CPS DM2 (diabetes mellitus, type 2) Continge ncy: defer SGLT given UTI risk, DPP4 to GLP10/21/20 hypo unawareness c RBG 3; ergo, held glim 4 BID07/04/20 6. 7.3; therefore, to 4 BID04/2018 increased to 2 BID10/2017 8.1; therefore, + glim 1 BID09/2016 11February 2011 LISA/creatinine of 17 Insomnia Stable on ami 25, me l 8 QHS04/12/17 zolpidem 5 held as per OSA12/2015 changed trazadone 200 to zolpidem 5 qhs (given no benefit c trazadone) Recurrent urinary tract infection No rec urrent symptoms on nitro 50 QHS per Iftikharwith urge incontinence an intrinsic sphincter deficiency (ISD)06/02/19 UCX P. ariana >100K (R to NFN, tige) c sepsis04/08/17 UCX MRSA >100K (res to tetra and clinda); therefore, Bactrim 5D (done 2D LUTS) and arranged fu sirena Bal given recurrent UTI who plans to repeat Botox UCX >100K E. faecalis UTI04/2016 UCX E coli >100K; therefore nitro 10D11/2015 [facility] referred to Dr. Monica Bal for treatment options, for 05/2016 UDS11/20- K. pneumonia UTI/SIRS rxed c Macrobi03/24/15 held Macrobid [address] Tiwari given increased cr and using abx as per asthma Chronic pain syndrome Stable on dulox 60 BID, frank 800 TID, baclo 10 QID prn, cyclo 5 TID prnmainly spinal/paraspinal +/- R>L kneeh/o cgeiks-ifpgnul-zkbgjjdivrhh, recurrent opioid overuse/OUDContingency: bup/nal/05/24 held nor 25 QHS given overlap c dulox, cyclo and escital referred for MM trial to Dr. Saleem Breast cancer screening 10/2018 B C1 mamm ogram09/22/20, 07/04/20 gave mammo order Ataxia Stable on home PT04/08 upon leaving clinic patient collpased in parking lot 2 "BLE weakness"-she was transferred to [facility] for evaluation and admission for pain control/metcalf and probable STR12/2014 referred for PT evaluation for scooter10/31/[address] Nguyen (Seth had referred to him 07/2014) who ordered MRI brain, BLE NCS, EEG Gross hematuria No recurrent hematur ia05/2017 normal cystoureteroscopy c B retrograde c IV Botox103/10/16 CT AP hematuria protocol NAD x 2 cm R renal simple cyst01/05/17 UCX NG12/31/16 SMCER dx E. faecalis UTI (UCX >100K)-UA TNTC WBC/RBCs-started cephalexin 500 QID x 10D c slow improvement of hematuria, WBC 11.0 c normal diff, hgb 12.2, cr 0.810 new onset painless gross hematuria06/2016 [facility] DJD (degenerative joint disease), cervical pain regimen [...] surgical approach, advised f/u c Bolla t/c dbbmserxx52/8/[address] Lyles given MRI/NCS/PE, who 02/07/16 offered ACDF - but advised to have L rotator cuff repaired first11/2014 NCS-Dr. 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 4.7, 1.6 on K 20 qd, MOX 400 BID05/2012 K 3.3 and Mg 1.6 therefore 20 and 400 BID started Primary osteoarthritis of both knees Sta ble on diclo 1% QID B knees prn Closed right hip fracture Stable pain on current regimen per Dr. Gao, home PT03/14/[address] Gao [facility]03/06/19 dc home on Lovenox 30 BID 14D, oxy 5 disp 30 prn Treatment Notes Test Name Order Date Dexa, Full Body 2020-10-21 WWBC Nhan Screening Bilateral (Ultrasound if Indicated ) (3D Mammo) 2020-10-21 Next Appt Details , BW NOW Reason: Provider Name:Kimani Ann, 2020-11-12 0 1:30:00 PM, [address] [facility], , [place], [address], Insurance Providers Payer Name Payer Address Payer Phone Insured Name Patient Relati onship to Insured Coverage Start Date Coverage End Date [facility] [address] [facility] [id number] CASSIE ARTHUR self
--- OUTSIDE RECORDS SUMMARY | 2020-12-25 16:50 | CCD ---
Author Organization Unknown Address [address] [place] [address] Phone [phone] Care Team Providers Care Hotel Assistant General Manager Name Role Phone IRLANDA LONGORIA MD 3 [phone] Allergies Code Code System Name Reaction Severity Status Onset Rosuvastatin Calcium Active 06/10/2014 Tequin Active 06/10/2014 13498 RxNorm Theophylline Active 015 Vioxx Active 06/10/2014 178655 RxNorm Zocor Active 06/10/2014 Sulfa (Sulfonamide Antibiotics) Chest Pain Moderat e Active Notes: Some allergies listed in Document s: #[id number], #[id number], #[id number] could not be added to this patient's [...] Not available albuterol sulfate HFA 90 mcg/actuation a erosol inhaler INHALE TWO PUFFS BY MOUTH FOUR TIMES DAILY NEEDED Active Not available alendronate 70 mg tablet Completed 018 alogliptin 25 mg tablet Active Not avai lable alprazolam 1 mg tablet Active Not avail able amitriptyline 25 mg tablet Active Not a [...] Not avai lable cefdinir 300 mg capsule Active Not avai lable cefuroxime axetil 500 mg tablet Completed 02/03/2018 [...] 2018 cromolyn 20 mg/2 mL solution for nebulization Active Not available cyclobenzaprine 10 mg tablet Active Not available cyclobenzaprine 5 mg tablet Active Not available diclofenac 1 % topical gel Active Not a vailable docusate sodium 100 mg capsule Active N ot available doxycycline hyclate 100 mg tablet Active Not available doxycycline monohydrate 100 mg [...] 0.01% (0.1 mg/gram) vaginal cream Completed 02/14/2020 fluconazole 150 mg tablet TAKE ONE TABLET BY MOUTH FOR ONE DAY, MAY REPEAT IN 72 HOURS Active Not available fluticasone 232 mcg-salmeterol 14 mcg/actuation breath activated powdr Active Not available fluticasone 250 mcg-salmeterol 50 mcg/do se blistr powdr for inhalation INHALE 1 PUFF BY MOUTH TWICE DAILY Active Not available folic acid 1 tablet daily Active Not available folic acid 1 mg tablet Active Not avail able gabapentin 800 mg tablet Active Not geraldine ilable GaviLyte-N 420 gram oral solution Active Not available glimepiride 1 mg tablet Completed 04/15/19 21 glimepiride 2 mg tablet TAKE ONE TABLET BY MOUTH @8AM and TAKE ONE TABLET @8PM Completed 10/15/2020 glimepiride 4 mg tablet Active Not avai lable global alcohol prep ease pads 70 %pads Active Not available hydrocodone 5 mg-acetaminophen 325 mg tablet Completed 08/14/2018 indapamide 2.5 mg tablet Active Not geraldine ilable Januvia 100 mg tablet Active Not availa ble ketorolac 0.5 % eye drops INSTILL ONE DROP IN THE RIGHT EYE FOUR TIMES DAILY STARTING THREE DAYS PRIOR TO SURGERY Active Not available levothyroxine 75 mcg tablet Active Not available [...] Blue Test Strip Active N ot available OneTouch Verio test strips USE DIRECTED TWICE DAILY Active Not availab le oxycodone 10 mg tablet Completed 9 oxycodone [...] 20 mEq tablet,extended release(part/cryst) Active Not available prednisolone acetate 1 % eye drops,suspe nsion INSTILL ONE DROP IN THE RIGHT EYE FOUR TIMES DAILY STARTING ON THE DAY OF SURGERY AFTER GETTING HOME Active Not available prednisone 20 mg tablet TAKE ONE TABLET BY MOUTH ONCE DAILY FOR FIVE DAYS Completed 02/14/2020 ramelteon 8 mg tablet Active Not availa ble rosuvastatin 40 mg tablet Active Not av ailable Senna Laxative 8.6 mg tablet Active Not available Stimulant Laxative Plus 8.6 mg-50 mg tablet Active Not available sulfamethoxazole 400 mg-trimethoprim 80 mg tablet Completed 02/03/2018 sulfamethoxazole 800 mg-trimethoprim 160 mg tablet Completed 02/03/2018 tamsulosin 0.4 mg capsule Active Not av ailable tobramycin 0.3 % eye drops INSTILL ONE DROP IN THE RIGHT EYE FOUR TIMES DAILY STARTING THREE DAYS PRIOR TO SURGERY Active Not available tramadol 50 mg tablet TAKE ONE TABLET BY MOUTH EVERY 6 HOURS NEEDED FOR PAIN MAX DAILY DOSE FOUR TABLETS Completed 02/14/2020 trazodone 100 mg tablet Completed 02/04/20 18 Vitamin D2 1,250 mcg (50,000 unit) capsule Active Not available Xarelto 20 mg tablet Completed 02/03/2018 zolpidem 5 mg tablet Completed 02/03/2018 Notes: Some medications listed in Docume nts: #[id number], #[id number], #[id number] could not be added to this patient's [...] by 02/25/2020 MRI, Lumbar Spine, W/wo Contrast [facility] [address] [place] [phone] (Work Place) 03/11/2020 XR, Lumbosacral Spine, 2 or 3 View [facility] [address] [place] [address] (Work Place) Notes: L5-S1 laminectomy [id number] Jon manriquez 05/20/2017 , hysterectomy at age 44, rectocele repair at age 44, deviated septum at age 47, cholecystectomy age 49, bladder mesh surgery in 2012, bladder revision repair in 2013, right foot reconstruction june 2016 05/20/2017 Results Lab Results Date Name Specimen Result Interpretation Description Value Range Status Address 10/20/2020 [facility] P[facility] Report NOS No observation recorded. [facility]: [address] [facility] [place] 10/20/2020 SARS CoV 2 RNA (COVID-19), QL, cnc router operator-PCR, Respirat ory Specimen NOS Normal Sars-cov-2 negative negative Final [facility]: [address] [facility] [place] 08/11/2020 SARS CoV 2 RNA (COVID-19), QL, cnc router operator-PCR, Respiratory Sp ecimen Other No observation recorded. [facility]: [address] [facility] [place] 03/26/2020 [facility] Pdf Report NOS No observation recorded. [facility]: [address] [facility] [place] 03/26/2020 SARS CoV 2 RNA (COVID-19), QL, cnc router operator-PCR, Respirat ory Specimen NOS Normal Sars-cov-2 negative negative Final [facility]: [address] [facility] [place] 11/28/2019 SARS CoV 2 RNA (COVID-19), QL, cnc router operator-PCR, Respiratory Specim en No observation recorded. [facility]: [address] [place] [address] 11/23/2019 SARS CoV 2 RNA (COVID-19), QL, cnc router operator-PCR, Respiratory Specim en No observation recorded. [facility]: [address] [place] [address] 11/02/2019 SARS CoV 2 RNA (COVID-19), QL, cnc router operator-PCR, Respiratory Specim en No observation recorded. [facility]: [address] [place] [address] 10/24/2020 Inflammation of Sacroiliac Joint; Cervico-occipital Neuralgia; Cervical Radiculopathy; Displacement of Cervical Intervertebral Disc without Myelopathy; Degeneration of Cervical Intervertebral Disc; Cervical Spondylosis without Myelopathy; Myofascial Pain; Lumbar Post-laminectomy Syndrome; Degeneration of Lumbar Intervertebral Disc; Displacement of Lumbar Intervertebral Disc without Myelopathy; Spondylosis without Myelopathy; Lumbosacral Spondylosis without Myelopathy; Lumbar Radiculopathy Oleg Ling MD: [address] [address], [place] [address], Ph. 10/20/2020 Pre-surgery Testing; Viral Screening Oleg Ling MD: [id number] [address], [facility] [place] [address], Ph. [phone] 10/15/2020 Inflammation of Sacroiliac Joint; Cervico-occipital Neuralgia; Cervical Radiculopathy; Displacement of Cervical Intervertebral Disc without Myelopathy; Degeneration of Cervical Intervertebral Disc; Cervical Spondylosis without Myelopathy; Myofascial Pain; Lumbar Post-laminectomy Syndrome; Degeneration of Lumbar Intervertebral Disc; Displacement of Lumbar Intervertebral Disc without Myelopathy; Spondylosis without Myelopathy; Lumbosacral Spondylosis without Myelopathy; Lumbar Radiculopathy Mar Smith HORTICULTURAL NURSERY ASSISTANT: [id number] [address], Ph. 08/11/2020 Pre-surgery Testing; Viral Screening Oleg Ling MD: [address] [address], [place] [address], Ph. [phone] 08/06/2020 Inflammation of Sacroiliac Joint; Cervico-occipital Neuralgia; Cervical Radiculopathy; Displacement of Cervical Intervertebral Disc without Myelopathy; Degeneration of Cervical Intervertebral Disc; Cervical Spondylosis without Myelopathy; Myofascial Pain; Lumbar Post-laminectomy Syndrome; Degeneration of Lumbar Intervertebral Disc; Displacement of Lumbar Intervertebral Disc without Myelopathy; Spondylosis without Myelopathy; Lumbosacral Spondylosis without Myelopathy; Lumbar Radiculopathy Mar Smith HORTICULTURAL NURSERY ASSISTANT: [address] [address], [place] [address], Ph. 04/15/2020 Inflammation of Sacroiliac Joint; Cervico-occipital Neuralgia; Cervical Radiculopathy; Displacement of Cervical Intervertebral Disc without Myelopathy; Degeneration of Cervical Intervertebral Disc; Cervical Spondylosis without Myelopathy; Myofascial Pain; Lumbar Post-laminectomy Syndrome; Degeneration of Lumbar Intervertebral Disc; Displacement of Lumbar Intervertebral Disc without Myelopathy; Spondylosis without Myelopathy; Lumbosacral Spondylosis without Myelopathy; Lumbar Radiculopathy Mar Smith HORTICULTURAL NURSERY ASSISTANT: [address] [address], [facility] [place] [address], Ph. 03/31/2020 Lumbar Post-laminectomy Syndrome; Lumbar Radiculopathy; Degeneration of Lumbar Intervertebral Disc; Displacement of Lumbar Intervertebral Disc without Myelopathy; Inflammation of Sacroiliac Joint; Cervico-occipital Neuralgia; Cervical Radiculopathy; Displacement of Cervical Intervertebral Disc without Myelopathy; Degeneration of Cervical Intervertebral Disc; Cervical Spondylosis without Myelopathy; Myofascial Pain; Spondylosis without Myelopathy; Lumbosacral Spondylosis without Myelopathy Oleg Ling MD: [address] [address], [place] [address], Ph. 03/26/2020 Pre-surgery Testing; Viral Screening Oleg Ling MD: [address] [address], [place] [address], Ph. [phone] 03/18/2020 Inflammation of Sacroiliac Joint; Cervico-occipital Neuralgia; Cervical Radiculopathy; Displacement of Cervical Intervertebral Disc without Myelopathy; Degeneration of Cervical Intervertebral Disc; Cervical Spondylosis without Myelopathy; Myofascial Pain; Lumbar Post-laminectomy Syndrome; Degeneration of Lumbar Intervertebral Disc; Displacement of Lumbar Intervertebral Disc without Myelopathy; Spondylosis without Myelopathy; Lumbosacral Spondylosis without Myelopathy; Lumbar Radiculopathy Mar Smith HORTICULTURAL NURSERY ASSISTANT: [address] [address], [facility] [place] [address], Ph. 02/14/2020 Inflammation of Sacroiliac Joint; Cervico-occipital Neuralgia; Cervical Radiculopathy; Displacement of Cervical Intervertebral Disc without Myelopathy; Degeneration of Cervical Intervertebral Disc; Cervical Spondylosis without Myelopathy; Myofascial Pain; Lumbar Post-laminectomy Syndrome; Degeneration of Lumbar Intervertebral Disc; Displacement of Lumbar Intervertebral Disc without Myelopathy; Spondylosis without Myelopathy; Lumbosacral Spondylosis without Myelopathy; Lumbar Radiculopathy Mar Antonypapi Sarah, HORTICULTURAL NURSERY ASSISTANT: [id number] [facility] [address], [place] [address], Ph. 12/03/2019 Inflammation of Sacroiliac Joint; Cervico-occipital Neuralgia; Cervical Radiculopathy; Displacement of Cervical Intervertebral Disc without Myelopathy; Degeneration of Cervical Intervertebral Disc; Cervical Spondylosis without Myelopathy; Myofascial Pain; Lumbar Post-laminectomy Syndrome; Degeneration of Lumbar Intervertebral Disc; Displacement of Lumbar Intervertebral Disc without Myelopathy; Spondylosis without Myelopathy; Lumbosacral Spondylosis without Myelopathy; Lumbar Radiculopathy Oleg Ling MD: [address] [address], [facility] [place] [address], Ph. 11/28/2019 Pre-surgery Testing; Viral Screening Oleg Ling MD: [address] [address], [place] [address], Ph. [phone] 11/23/2019 Pre-surgery Testing; Viral Screening Oleg Ling MD: [address] [address], [place] [address], Ph. [phone] 11/22/2019 Inflammation of Sacroiliac Joint; Cervico-occipital Neuralgia; Cervical Radiculopathy; Displacement of Cervical Intervertebral Disc without Myelopathy; Degeneration of Cervical Intervertebral Disc; Cervical Spondylosis without Myelopathy; Myofascial Pain; Lumbar Post-laminectomy Syndrome; Degeneration of Lumbar Intervertebral Disc; Displacement of Lumbar Intervertebral Disc without Myelopathy; Spondylosis without Myelopathy; Lumbosacral Spondylosis without Myelopathy; Lumbar Radiculopathy Mar Smith HORTICULTURAL NURSERY ASSISTANT: [address] [facility] [address], [facility] [place] [address], Ph. 11/07/2019 Inflammation of Sacroiliac Joint; Cervico-occipital Neuralgia; Cervical Radiculopathy; Displacement of Cervical Intervertebral Disc without Myelopathy; Degeneration of Cervical Intervertebral Disc; Cervical Spondylosis without Myelopathy; Myofascial Pain; Lumbar Post-laminectomy Syndrome; Degeneration of Lumbar Intervertebral Disc; Displacement of Lumbar Intervertebral Disc without Myelopathy; Spondylosis without Myelopathy; Lumbosacral Spondylosis without Myelopathy; Lumbar Radiculopathy Oleg Ling MD: [address] [address], [place] [address], Ph. 11/02/2019 Pre-surgery Testing; Viral Screening Oleg Ling MD: [address] [address], [place] [address], Ph. [phone] 10/24/2019 Inflammation of Sacroiliac Joint; Cervico-occipital Neuralgia; Cervical Radiculopathy; Displacement of Cervical Intervertebral Disc without Myelopathy; Degeneration of Cervical Intervertebral Disc; Cervical Spondylosis without Myelopathy; Myofascial Pain; Lumbar Post-laminectomy Syndrome; Degeneration of Lumbar Intervertebral Disc; Displacement of Lumbar Intervertebral Disc without Myelopathy; Spondylosis without Myelopathy; Lumbosacral Spondylosis without Myelopathy; Lumbar Radiculopathy Mar Smith NP: [address] [address], [place] [address], Ph. 01/01/2019 Inflammation of Sacroiliac Joint; Cervico-occipital Neuralgia; Cervical Radiculopathy; Displacement of Cervical Intervertebral Disc without Myelopathy; Degeneration of Cervical Intervertebral Disc; Cervical Spondylosis without Myelopathy; Myofascial Pain; Lumbar Post-laminectomy Syndrome; Degeneration of Lumbar Intervertebral Disc; Displacement of Lumbar Intervertebral Disc without Myelopathy; Spondylosis without Myelopathy; Lumbosacral Spondylosis without Myelopathy; Lumbar Radiculopathy Mar Smith NP: [id number] [address], [place] [address], Ph. 11/15/2018 Cervical Radiculopathy; Displacement of Cervical Intervertebral Disc without Myelopathy; Degeneration of Cervical Intervertebral Disc; Cervical Spondylosis without Myelopathy; Myofascial Pain; Lumbar Post-laminectomy Syndrome; Degeneration of Lumbar Intervertebral Disc; Displacement of Lumbar Intervertebral Disc without Myelopathy; Spondylosis without Myelopathy; Lumbosacral Spondylosis without Myelopathy; Lumbar Radiculopathy; Inflammation of Sacroiliac Joint; Cervico-occipital Neuralgia Oleg Ling MD: [address] [address], [place] [address], Ph. 11/01/2018 Lumbar Post-laminectomy Syndrome; Lumbar Radiculopathy; Degeneration of Lumbar Intervertebral Disc; Displacement of Lumbar Intervertebral Disc without Myelopathy; Inflammation of Sacroiliac Joint; Cervico-occipital Neuralgia; Cervical Radiculopathy; Displacement of Cervical Intervertebral Disc without Myelopathy; Degeneration of Cervical Intervertebral Disc; Cervical Spondylosis without Myelopathy; Myofascial Pain; Spondylosis without Myelopathy; Lumbosacral Spondylosis without Myelopathy Oleg Ling MD: [id number] [address], Ph. 10/03/2018 Inflammation of Sacroiliac Joint; Cervico-occipital Neuralgia; Cervical Radiculopathy; Displacement of Cervical Intervertebral Disc without Myelopathy; Degeneration of Cervical Intervertebral Disc; Cervical Spondylosis without Myelopathy; Myofascial Pain; Lumbar Post-laminectomy Syndrome; Degeneration of Lumbar Intervertebral Disc; Displacement of Lumbar Intervertebral Disc without Myelopathy; Spondylosis without Myelopathy; Lumbosacral Spondylosis without Myelopathy; Lumbar Radiculopathy Mar Smith NP: [id number] [address], Ph. 09/01/2018 Cervical Spondylosis without Myelopathy; Degeneration of Cervical Intervertebral Disc; Displacement of Cervical Intervertebral Disc without Myelopathy; Inflammation of Sacroiliac Joint; Cervico-occipital Neuralgia; Cervical Radiculopathy; Myofascial Pain; Lumbar Post-laminectomy Syndrome; Degeneration of Lumbar Intervertebral Disc; Displacement of Lumbar Intervertebral Disc without Myelopathy; Spondylosis without Myelopathy; Lumbosacral Spondylosis without Myelopathy; Lumbar Radiculopathy Oleg Ling MD: [address] [address], [place] [address], Ph. 08/31/2018 Inflammation of Sacroiliac Joint; Cervico-occipital Neuralgia; Cervical Radiculopathy; Displacement of Cervical Intervertebral Disc without Myelopathy; Degeneration of Cervical Intervertebral Disc; Cervical Spondylosis without Myelopathy; Myofascial Pain; Lumbar Post-laminectomy Syndrome; Degeneration of Lumbar Intervertebral Disc; Displacement of Lumbar Intervertebral Disc without Myelopathy; Spondylosis without Myelopathy; Lumbosacral Spondylosis without Myelopathy; Lumbar Radiculopathy Oleg Ling MD: [address] [address], [facility] [place] [address], Ph. 08/14/2018 Neck Pain; Inflammation of Sacroiliac Joint; Cervico-occipital Neuralgia; Cervical Radiculopathy; Displacement of Cervical Intervertebral Disc without Myelopathy; Degeneration of Cervical Intervertebral Disc; Cervical Spondylosis without Myelopathy; Myofascial Pain; Lumbar Post-laminectomy Syndrome; Degeneration of Lumbar Intervertebral Disc; Displacement of Lumbar Intervertebral Disc without Myelopathy; Spondylosis without Myelopathy; Lumbosacral Spondylosis without Myelopathy; Lumbar Radiculopathy Mar Smith NP: [address] [address], [place] [address], Ph. 02/03/2018 Inflammation of Sacroiliac Joint; Cervico-occipital Neuralgia; Cervical Radiculopathy; Displacement of Cervical Intervertebral Disc without Myelopathy; Degeneration of Cervical Intervertebral Disc; Cervical Spondylosis without Myelopathy; Myofascial Pain; Lumbar Post-laminectomy Syndrome; Degeneration of Lumbar Intervertebral Disc; Displacement of Lumbar Intervertebral Disc without Myelopathy; Spondylosis without Myelopathy; Lumbosacral Spondylosis without Myelopathy; Lumbar Radiculopathy Oleg Ling MD: [id number] [facility] [address], [place] [address], Ph. Social History Tobacco Smoking Status Never Smoker Vaccine List None recorded. Plan of Care Reminders Provider Appointments None recorded. Lab None recorded. Referral None recorded. Procedures None recorded. Surgeries None recorded. Imaging None recorded. Vitals 10/15/2020 03:00PM FOLLOW-UP Height Weight BMI Blood Pressure 5 ft 6 in 224 lbs 36.2 kg/m2 128/74 mm[Hg] 08/06/2020 11:30AM FOLLOW-UP Blood Pressure 115/77 mm[Hg] 04/15/2020 01:15PM FOLLOW-UP Blood Pressure 134/85 mm[Hg] [...]
--- OUTSIDE RECORDS SUMMARY | 2020-12-25 16:50 | CCD ---
Author Author [employer] Organization [facility] [employer] Address Unknown Phone Unavailable Care Team Providers Care Substance Abuse Therapist Name Role Phone Kimani Ann Unavailable PROBLEMS Type Condition ICD9-CM Code OIN96-RD Code Onset Dates Condition S tatus W/U Status Risk SNOMED Code Notes Problem Fibromyalgia M79.7 Active confirmed 9277347 05 Problem Breast cancer screening Z12.39 Active confirmed 472123255 Problem Depression F32.9 Active confirmed 20098207 Problem Folic acid deficiency E53.8 Active confirmed 009765096 Problem Insomnia G47.00 Active confirmed 671132246 Problem Osteoporosis M81.0 Active confirmed 6072328 6 Problem Gastroesophageal reflux disease, esophagitis pre sence not specified K21.9 Active confirmed 308724981 Problem Oral candidiasis B37.0 Active confirmed 797 97832 Problem Hypothyroid E03.9 Active confirmed 89987195 Problem Chronic pain syndrome G89.4 Active confirmed 441758270 Problem Recurrent urinary tract infection N39.0 Active confirmed 754085623 Problem Hypertension I10 Active confirmed 8196311 3 Problem Vitamin D deficiency E55.9 Active confirmed 45503712 Problem Hyperalgesia R20.8 Active confirmed 4508004 8 Problem Pulmonary embolism I26.99 Active confirmed 5 0056843 Problem Mixed hyperlipidemia E78.2 Active confirmed 104190904 Problem Asthma, severe persistent J45.50 Active confirmed 708726315 Problem Other disturbances of skin sensation R20.8 Act андрей confirmed 65095136 Problem DJD (degenerative joint disease), lumbar M47.816 Active confirmed 210559391 Problem Diabetes mellitus without me ntion of complication, type II or unspecified type, not stated as uncontrolled 250.00 Activ e confirmed 882290445 Problem Impingement syndrome of both shoulders M75.41 A ctive confirmed 241406915 Problem Hypothyroidism, unspecified E03.9 Active confirmed 56295990 Problem Ataxia R27.0 Active confirmed 85559213 Problem Constipation, chronic K59.09 Active confirmed 197571559 Problem Hyperlipidemia E78.5 Active confirmed 34077 004 Problem Essential tremor G25.0 Active confirmed 609 494530 Problem Diastolic CHF I50.30 Active confirmed 586481 008 Problem Tibial plateau fracture, left S82.142A Active confi rmed 27395903 Problem 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 Active confirmed 4 81920939 Problem Falls frequently R29.6 Active confirmed 279 649502 Problem Constipation, unspecified constipation type K59.00 Active confirmed 96364482 Problem Colon polyp K63.5 Active confirmed 91099225 Problem Anemia, iron deficiency D50.9 Active confirmed 02176113 Problem NICKI (obstructive sleep apnea) G47.33 Active confirm ed 20601294 Problem DJD (degenerative joint disease), cervical M50.30 Active confirmed 16771792 Problem Wrist fracture, left, sequela S62.102S Active confi rmed 998906143 Problem Primary osteoarthritis of right knee M17.11 Act андрей confirmed 540278108503115 Problem Primary osteoarthritis of both knees M17.0 Act андрей confirmed 696152601 Problem DM2 (diabetes mellitus, type 2) E11.9 Active confi rmed 31956021 Problem Menopausal and female climacteric states N95.1 Active confirmed 814242332 Problem Anxiety F41.9 Active confirmed 86842339 ALLERGIES Allergen (clinical drug ingredient) Drug/Non Drug Allergy do cumented on EMR Reaction Allergy Type Onset Date Status tequin pruritis Non Drug Allergy Active Zocor 10 Anaphylaxis Drug Allergy Active puneet sprinkles head ache Non Drug Allergy Active Vioxx (for allergy use only) bruising Drug Allergy Active ENCOUNTERS from 1955 to 2020-10-22 Encounter Location Date Provider Diagnosis [address] [phone] [place] [address] Oct, Kimani Ann IMMUNIZATIONS Vaccine Route Administration [...] Language: Question Answer Notes Languages spoken: Slovenian Caodaism: Question Answer Notes Caodaism 21 Mu-Ism Sexual Hx: Question Answer Notes Had sex [...] Once a day for 28 Active Ergocalciferol 74875 UNIT 1 capsule Orally every 14 days for 30 Days Active Folic Acid 1 MG 1 tablet Orally Once a day for 30 Days Active Nystatin Powder 331911 UNIT 1 application to affected area Externally [...] instability-June 2010 normal nerve conduction studies bilateral extremities-[facility] Medical History anemia, iron deficiency [...] by Graciela Medical History R PE-dx at [facility]-CT A chest c "small pulmonary emboli to RU PA with areas of parenchymal disease suggestive of pulmonary infarction"- started in Xarelto 15 BID Medical History MRSA UTI-04/08/17 UCX >100K Medical History R distal femur comminuted fr acture sp mechanical fall sp IM otis placement-02/20/19 Dr. Gao-[facility] Surgical History laparoscopic cholecystectomy-Dr. Courtney January 2007 [...] trograde approach [address] Gao-[facility] 02/20/19 Hospitalization History hyperkalemia 9.3 with mild [...] - serial EK/T-I, telemetry 11/20- Hospitalization History Lurose-ggbm-ft respiratory f ailure c desaturation to Sa)2 20% from same day surgery for R bunion surgery, then rehab at [facility] 06/25- Hospitalization History frequent falls-favoring 2 op iate overuse/misuse-CT cervical/head NAD/xray thoracic, LS, L hip NAD, stable CBCD, CMP, CIP/T-I, - telemetry, UDS + morphine, oxycodone; unresponsive episode requiring Narcan 0.8 to reverse 04/08-06/22 Hospitalization History mechanical fall sp R femur s p IM nail placement by Dr. Gao, tx [facility]BC[facility] 02/19- Hospitalization History P. mirabilis UTI c [...] Once a day for 30 Days Ergocalciferol 54576 UNIT 1 capsule Orally every 14 days [...] Name:Kimani Ann, 2020-11-12 0 1:30:00 PM, [address] [facility], , [place], [address], Insurance Providers Payer Name Payer Address Payer Phone Insured Name Patient Relati onship to Insured Coverage Start Date Coverage End Date [facility] [employer] [facility] [address] [facility] [id number] CASSIE ARTHUR self
--- OUTSIDE RECORDS SUMMARY | 2020-12-25 16:50 | CCD ---
Author Organization Unknown Address [address] [place] [address] Phone [phone] Care Team Providers Care Driving School Instructor Name Role Phone IRLANDA LONGORIA MD 3 [phone] Allergies Code Code System Name Reaction Severity Status Onset Rosuvastatin Calcium Active 06/10/2014 Tequin Active 06/10/2014 18137 RxNorm Theophylline Active 06/11/19 15 Vioxx Active 06/10/2014 358378 RxNorm Zocor Active 06/10/2014 Sulfa (Sulfonamide Antibiotics) Chest Pain Moderate Active Notes: Some allergies listed in Document s: #[id number], #[id number], #[id number] could not be added to this patient's [...] Not av ailable baclofen 10 mg tablet Active Not availa ble Breo Ellipta 200 mcg-25 mcg/dose powder for [...] 1 % topical gel APPLY FOUR GRAMS TO POSTERIOR KNEES FOUR TIMES DAILY DIRECTED Active Not available docusate sodium 100 mg capsule Active N [...] @8PM Completed 10/15/2020 glimepiride 4 mg tablet TAKE ONE TABLET BY MOUTH @8AM and TAKE ONE TABLET BY MOUTH @8PM Active Not available global alcohol prep ease pads 70 %pads [...] Notes: Some medications listed in Docume nts: #[id number], #[id number], #[id number] could not be added to this patient's [...] by 02/25/2020 MRI, Lumbar Spine, W/wo Contrast [facility] [address] [place] [address] (Work Place) 03/11/2020 XR, Lumbosacral Spine, [address] [facility] [address] [place], [place] [id number] (Work Place) Notes: L5-S1 laminectomy [id number] [address] Jon manriquez 05/20/2017 , hysterectomy at age 44, rectocele repair at age 44, deviated septum at age 47, cholecystectomy age 49, bladder mesh surgery in 2012, bladder revision repair in 2013, right foot reconstruction june 2016 05/20/2017 Results Lab Results Date Name Specimen Result Interpretation Description Value Range Status Address 08/11/2020 SARS CoV 2 RNA (COVID-19), QL, gas regulator repairer helper-PCR, Respiratory Sp ecimen Other No observation recorded. Aeg is Covid: [address] [facility] [place] 03/26/2020 Aegis Pdf Report NOS No observation recorded. [facility] Covid: [address] [facility] [place] 03/26/2020 SARS CoV 2 RNA (COVID-19), QL, gas regulator repairer helper-PCR, Respirat ory Specimen NOS Normal Sars-cov-2 negative negative Final Aegis Covid: [address] [facility] [place] 11/28/2019 SARS CoV 2 RNA (COVID-19), QL, gas regulator repairer helper-PCR, Respiratory Specim en No observation recorded. Smart Balloon: [address] [place] [address] 11/23/2019 SARS CoV 2 RNA (COVID-19), QL, gas regulator repairer helper-PCR, Respiratory Specim en No observation recorded. Smart Balloon: [address] [place] [address] 11/02/2019 SARS CoV 2 RNA (COVID-19), QL, gas regulator repairer helper-PCR, Respiratory Specim en No observation recorded. Smart Balloon: [address] [place] [address] Past Encounters 10/20/2020 Pre-surgery Testing; Viral Screening Oleg Ling MD: [id number] [facility] [address], [address], [place] [address], Ph. [phone] 10/15/2020 Inflammation of Sacroiliac Joint; Cervico-occipital Neuralgia; Cervical Radiculopathy; Displacement of Cervical Intervertebral Disc without Myelopathy; Degeneration of Cervical Intervertebral Disc; Cervical Spondylosis without Myelopathy; Myofascial Pain; Lumbar Post-laminectomy Syndrome; Degeneration of Lumbar Intervertebral Disc; Displacement of Lumbar Intervertebral Disc without Myelopathy; Spondylosis without Myelopathy; Lumbosacral Spondylosis without Myelopathy; Lumbar Radiculopathy Mar Smith BOOTH USHER: [id number] [address], [place] [address], Ph. 08/11/2020 Pre-surgery Testing; Viral Screening Oleg Ling MD: [id number] [address], [facility] [place] [address], Ph. [phone] 08/06/2020 Inflammation of Sacroiliac Joint; Cervico-occipital Neuralgia; Cervical Radiculopathy; Displacement of Cervical Intervertebral Disc without Myelopathy; Degeneration of Cervical Intervertebral Disc; Cervical Spondylosis without Myelopathy; Myofascial Pain; Lumbar Post-laminectomy Syndrome; Degeneration of Lumbar Intervertebral Disc; Displacement of Lumbar Intervertebral Disc without Myelopathy; Spondylosis without Myelopathy; Lumbosacral Spondylosis without Myelopathy; Lumbar Radiculopathy Mar Smith BOOTH USHER: [id number] [address], [place] [address], Ph. 04/15/2020 Inflammation of Sacroiliac Joint; Cervico-occipital Neuralgia; Cervical Radiculopathy; Displacement of Cervical Intervertebral Disc without Myelopathy; Degeneration of Cervical Intervertebral Disc; Cervical Spondylosis without Myelopathy; Myofascial Pain; Lumbar Post-laminectomy Syndrome; Degeneration of Lumbar Intervertebral Disc; Displacement of Lumbar Intervertebral Disc without Myelopathy; Spondylosis without Myelopathy; Lumbosacral Spondylosis without Myelopathy; Lumbar Radiculopathy Mar Smith BOOTH USHER: [address] [address], [facility] [place] [address], Ph. 03/31/2020 Lumbar Post-laminectomy Syndrome; Lumbar Radiculopathy; Degeneration of Lumbar Intervertebral Disc; Displacement of Lumbar Intervertebral Disc without Myelopathy; Inflammation of Sacroiliac Joint; Cervico-occipital Neuralgia; Cervical Radiculopathy; Displacement of Cervical Intervertebral Disc without Myelopathy; Degeneration of Cervical Intervertebral Disc; Cervical Spondylosis without Myelopathy; Myofascial Pain; Spondylosis without Myelopathy; Lumbosacral Spondylosis without Myelopathy Oleg Ling MD: [id number] [address], [facility] [place] [address], Ph. 03/26/2020 Pre-surgery Testing; Viral Screening Oleg Ling MD: [id number] [address], [facility] [place] [address], Ph. [phone] 03/18/2020 Inflammation of Sacroiliac Joint; Cervico-occipital Neuralgia; Cervical Radiculopathy; Displacement of Cervical Intervertebral Disc without Myelopathy; Degeneration of Cervical Intervertebral Disc; Cervical Spondylosis without Myelopathy; Myofascial Pain; Lumbar Post-laminectomy Syndrome; Degeneration of Lumbar Intervertebral Disc; Displacement of Lumbar Intervertebral Disc without Myelopathy; Spondylosis without Myelopathy; Lumbosacral Spondylosis without Myelopathy; Lumbar Radiculopathy Mar Smith BOOTH USHER: [id number] [address], Ph. 02/14/2020 Inflammation of Sacroiliac Joint; Cervico-occipital Neuralgia; Cervical Radiculopathy; Displacement of Cervical Intervertebral Disc without Myelopathy; Degeneration of Cervical Intervertebral Disc; Cervical Spondylosis without Myelopathy; Myofascial Pain; Lumbar Post-laminectomy Syndrome; Degeneration of Lumbar Intervertebral Disc; Displacement of Lumbar Intervertebral Disc without Myelopathy; Spondylosis without Myelopathy; Lumbosacral Spondylosis without Myelopathy; Lumbar Radiculopathy Mar Smith BOOTH USHER: [id number] [address], [facility] [place] [address], Ph. 12/03/2019 Inflammation of Sacroiliac Joint; Cervico-occipital Neuralgia; Cervical Radiculopathy; Displacement of Cervical Intervertebral Disc without Myelopathy; Degeneration of Cervical Intervertebral Disc; Cervical Spondylosis without Myelopathy; Myofascial Pain; Lumbar Post-laminectomy Syndrome; Degeneration of Lumbar Intervertebral Disc; Displacement of Lumbar Intervertebral Disc without Myelopathy; Spondylosis without Myelopathy; Lumbosacral Spondylosis without Myelopathy; Lumbar Radiculopathy Oleg Ling MD: [id number] [address], [facility] [place] [address], Ph. 11/28/2019 Pre-surgery Testing; Viral Screening Oleg Ling MD: [id number] [address], Ph. [phone] 11/23/2019 Pre-surgery Testing; Viral Screening Oleg Ling MD: [id number] [address], Ph. [phone] 11/22/2019 Inflammation of Sacroiliac Joint; Cervico-occipital Neuralgia; Cervical Radiculopathy; Displacement of Cervical Intervertebral Disc without Myelopathy; Degeneration of Cervical Intervertebral Disc; Cervical Spondylosis without Myelopathy; Myofascial Pain; Lumbar Post-laminectomy Syndrome; Degeneration of Lumbar Intervertebral Disc; Displacement of Lumbar Intervertebral Disc without Myelopathy; Spondylosis without Myelopathy; Lumbosacral Spondylosis without Myelopathy; Lumbar Radiculopathy Mar Smith NP: [id number] [address], Ph. 11/07/2019 Inflammation of Sacroiliac Joint; Cervico-occipital Neuralgia; Cervical Radiculopathy; Displacement of Cervical Intervertebral Disc without Myelopathy; Degeneration of Cervical Intervertebral Disc; Cervical Spondylosis without Myelopathy; Myofascial Pain; Lumbar Post-laminectomy Syndrome; Degeneration of Lumbar Intervertebral Disc; Displacement of Lumbar Intervertebral Disc without Myelopathy; Spondylosis without Myelopathy; Lumbosacral Spondylosis without Myelopathy; Lumbar Radiculopathy Oleg Ling MD: [id number] [address], [place] [address], Ph. 11/02/2019 Pre-surgery Testing; Viral Screening Oleg Ling MD: [id number] [address], Ph. [phone] 10/24/2019 Inflammation of Sacroiliac Joint; Cervico-occipital Neuralgia; Cervical Radiculopathy; Displacement of Cervical Intervertebral Disc without Myelopathy; Degeneration of Cervical Intervertebral Disc; Cervical Spondylosis without Myelopathy; Myofascial Pain; Lumbar Post-laminectomy Syndrome; Degeneration of Lumbar Intervertebral Disc; Displacement of Lumbar Intervertebral Disc without Myelopathy; Spondylosis without Myelopathy; Lumbosacral Spondylosis without Myelopathy; Lumbar Radiculopathy Mar Jennifer Sarah, BOOTH USHER: [id number] [address], Ph. 01/01/2019 Inflammation of Sacroiliac Joint; Cervico-occipital Neuralgia; Cervical Radiculopathy; Displacement of Cervical Intervertebral Disc without Myelopathy; Degeneration of Cervical Intervertebral Disc; Cervical Spondylosis without Myelopathy; Myofascial Pain; Lumbar Post-laminectomy Syndrome; Degeneration of Lumbar Intervertebral Disc; Displacement of Lumbar Intervertebral Disc without Myelopathy; Spondylosis without Myelopathy; Lumbosacral Spondylosis without Myelopathy; Lumbar Radiculopathy Mar Macedovicki Sarah BOOTH USHER: [id number] [address], Ph. 11/15/2018 Cervical Radiculopathy; Displacement of Cervical Intervertebral Disc without Myelopathy; Degeneration of Cervical Intervertebral Disc; Cervical Spondylosis without Myelopathy; Myofascial Pain; Lumbar Post-laminectomy Syndrome; Degeneration of Lumbar Intervertebral Disc; Displacement of Lumbar Intervertebral Disc without Myelopathy; Spondylosis without Myelopathy; Lumbosacral Spondylosis without Myelopathy; Lumbar Radiculopathy; Inflammation of Sacroiliac Joint; Cervico-occipital Neuralgia Oleg Ling MD: [id number] [address], Ph. 11/01/2018 Lumbar Post-laminectomy Syndrome; Lumbar Radiculopathy; Degeneration of Lumbar Intervertebral Disc; Displacement of Lumbar Intervertebral Disc without Myelopathy; Inflammation of Sacroiliac Joint; Cervico-occipital Neuralgia; Cervical Radiculopathy; Displacement of Cervical Intervertebral Disc without Myelopathy; Degeneration of Cervical Intervertebral Disc; Cervical Spondylosis without Myelopathy; Myofascial Pain; Spondylosis without Myelopathy; Lumbosacral Spondylosis without Myelopathy Oleg Ling MD: [id number] [address], Ph. 10/03/2018 Inflammation of Sacroiliac Joint; Cervico-occipital Neuralgia; Cervical Radiculopathy; Displacement of Cervical Intervertebral Disc without Myelopathy; Degeneration of Cervical Intervertebral Disc; Cervical Spondylosis without Myelopathy; Myofascial Pain; Lumbar Post-laminectomy Syndrome; Degeneration of Lumbar Intervertebral Disc; Displacement of Lumbar Intervertebral Disc without Myelopathy; Spondylosis without Myelopathy; Lumbosacral Spondylosis without Myelopathy; Lumbar Radiculopathy Mar Smith NP: [id number] [facility], [place] [address], Ph. 09/01/2018 Cervical Spondylosis without Myelopathy; Degeneration of Cervical Intervertebral Disc; Displacement of Cervical Intervertebral Disc without Myelopathy; Inflammation of Sacroiliac Joint; Cervico-occipital Neuralgia; Cervical Radiculopathy; Myofascial Pain; Lumbar Post-laminectomy Syndrome; Degeneration of Lumbar Intervertebral Disc; Displacement of Lumbar Intervertebral Disc without Myelopathy; Spondylosis without Myelopathy; Lumbosacral Spondylosis without Myelopathy; Lumbar Radiculopathy Oleg Ling MD: [id number] [facility] [address], [place] [address], Ph. 08/31/2018 Inflammation of Sacroiliac Joint; Cervico-occipital Neuralgia; Cervical Radiculopathy; Displacement of Cervical Intervertebral Disc without Myelopathy; Degeneration of Cervical Intervertebral Disc; Cervical Spondylosis without Myelopathy; Myofascial Pain; Lumbar Post-laminectomy Syndrome; Degeneration of Lumbar Intervertebral Disc; Displacement of Lumbar Intervertebral Disc without Myelopathy; Spondylosis without Myelopathy; Lumbosacral Spondylosis without Myelopathy; Lumbar Radiculopathy Oleg Ling MD: [id number] [facility] [address], [place] [address], Ph. 08/14/2018 Neck Pain; Inflammation of Sacroiliac Joint; Cervico-occipital Neuralgia; Cervical Radiculopathy; Displacement of Cervical Intervertebral Disc without Myelopathy; Degeneration of Cervical Intervertebral Disc; Cervical Spondylosis without Myelopathy; Myofascial Pain; Lumbar Post-laminectomy Syndrome; Degeneration of Lumbar Intervertebral Disc; Displacement of Lumbar Intervertebral Disc without Myelopathy; Spondylosis without Myelopathy; Lumbosacral Spondylosis without Myelopathy; Lumbar Radiculopathy Mar Smith NP: [id number] [address], [place] [address], Ph. 02/03/2018 Inflammation of Sacroiliac Joint; Cervico-occipital Neuralgia; Cervical Radiculopathy; Displacement of Cervical Intervertebral Disc without Myelopathy; Degeneration of Cervical Intervertebral Disc; Cervical Spondylosis without Myelopathy; Myofascial Pain; Lumbar Post-laminectomy Syndrome; Degeneration of Lumbar Intervertebral Disc; Displacement of Lumbar Intervertebral Disc without Myelopathy; Spondylosis without Myelopathy; Lumbosacral Spondylosis without Myelopathy; Lumbar Radiculopathy Oleg Ling MD: [id number] [address], [place] [address], Ph. Social History Tobacco Smoking Status Never [...]
--- OUTSIDE RECORDS SUMMARY | 2020-12-25 16:53 | CCD ---
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 Name Role Phone Jean-Pierre Ling MD Unavailable Unavailable Bolla, Jean-Pierre Dejesus MD Unavailable Unavailable Bolla, Jean-Pierre Dejesus MD Unavailable Unavailable Bolla, Jean-Pierre Dejesus MD Unavailable Unavailable Bolla, Jean-Pierre Dejesus MD Unavailable Unavailable Bolla, Jean-Pierre Dejesus MD Unavailable Unavailable Bolla, Jean-Pierre Dejesus MD Unavailable Unavailable Bolla, Jean-Pierre Dejesus MD Unavailable Unavailable Bolla, Jean-Pierre Dejesus MD Unavailable Unavailable Bolla, Jean-Pierre Dejesus MD Unavailable Unavailable Bolla, Jean-Pierre Dejesus MD Unavailable Unavailable Bolla, Jean-Pierre Dejesus MD Unavailable Unavailable Bolla, Jean-Pierre Dejesus MD Unavailable Unavailable Bolla, Jean-Pierre Dejesus MD Unavailable Unavailable Bolla, Jean-Pierre Dejesus MD Unavailable Unavailable Bolla, Jean-Pierre Dejesus MD Unavailable Unavailable Bolla, Jean-Pierre Dejesus MD Unavailable Unavailable Bolla, Jean-Pierre Dejesus MD Unavailable Unavailable Bolla, Jean-Pierre Dejesus MD Unavailable Unavailable Bolla, Jean-Pierre Dejesus MD Unavailable Unavailable Boljayla, Jean-Pierre Dejesus MD Unavailable Unavailable Bolla, Jean-Pierre Dejesus MD Unavailable Unavailable Bolla, Jean-Pierre Dejesus MD Unavailable Unavailable Bolla, Jean-Pierre Dejesus MD Unavailable Unavailable Bolla, Jean-Pierre Dejesus MD Unavailable Unavailable Bolla, Jean-Pierre Dejesus MD Unavailable Unavailable Boljayla, Jean-Pierre Dejesus MD Unavailable Unavailable Bolla, Jean-Pierre Dejesus MD Unavailable Unavailable Bolla, Jean-Pierre Dejesus MD Unavailable Unavailable Bolla, Jean-Pierre Dejesus MD Unavailable Unavailable Boljayla, Jean-Pierre Dejesus MD Unavailable Unavailable Bolla, Jean-Pierre Dejesus MD Unavailable Unavailable Boljayla, Jean-Pierre Dejesus MD Unavailable Unavailable Bolla, Jean-Pierre Dejesus MD Unavailable Unavailable Boljayla, Jean-Pierre Dejesus MD Unavailable Unavailable Bolla, Jean-Pierre Dejesus MD Unavailable Unavailable Bolla, Jean-Pierre Dejesus MD Unavailable Unavailable Boljayla, Jean-Pierre Dejesus MD Unavailable Unavailable Bolla, Jean-Pierre Dejesus MD Unavailable Unavailable Boljayla, Jean-Pierre Dejesus MD Unavailable Unavailable Bolla, Jean-Pierre Dejesus MD Unavailable Unavailable Boljayla, Jean-Pierre Dejesus MD Unavailable Unavailable Bolla, Jean-Pierre Dejesus MD Unavailable Unavailable Bolla, Jean-Pierre Dejesus MD Unavailable Unavailable Bolla, Jean-Pierre Dejesus MD Unavailable Unavailable Bolla, Jean-Pierre Dejesus MD Unavailable Unavailable Boljayla, Jean-Pierre Dejesus MD Unavailable Unavailable Bolla, Jean-Pierre Dejesus MD Unavailable Unavailable Bolla, Jean-Pierre Dejesus MD Unavailable Unavailable Charlebois, A Michael RPA C Unavailable Unavailable Charlebois, A Michael RPA C Unavailable Unavailable Charlebois, A Michael RPA C Unavailable Unavailable Charlebois, A Michael RPA C Unavailable Unavailable Charlebois, A Michael RPA C Unavailable Unavailable Charlebois, A Michael RPA C Unavailable Unavailable Charlebois, A Michael RPA C Unavailable Unavailable Charlebois, A Michael RPA C Unavailable Unavailable Charlebois, A Michael RPA C Unavailable Unavailable Charlebois, A Michael RPA C Unavailable Unavailable Charlebois, A Michael RPA C Unavailable Unavailable Charlebois, A Michael RPA C Unavailable Unavailable Charlebois, A Michael RPA C Unavailable Unavailable Charlebois, A Michael RPA C Unavailable Unavailable Charlebois, A Michael RPA C Unavailable Unavailable Charlebois, A Michael RPA C Unavailable Unavailable Charlebois, A Michael RPA C Unavailable Unavailable Charlebois, A Michael RPA C Unavailable Unavailable Charlebois, A Michael RPA C Unavailable Unavailable Charlebois, A Michael RPA C Unavailable Unavailable Charlebois, A Michael RPA C Unavailable Unavailable Charlebois, A Michael RPA C Unavailable Unavailable Charlebois, A Michael RPA C Unavailable Unavailable Charlebois, A Michael RPA C Unavailable Unavailable Charlebois, A Michael RPA C Unavailable Unavailable Charlebois, A Michael RPA C Unavailable Unavailable Charlebois, A Michael RPA C Unavailable Unavailable Charlebois, A Michael RPA C Unavailable Unavailable Charlebois, A Michael RPA C Unavailable Unavailable Charlebois, A Michael RPA C Unavailable Unavailable Charlebois, A Michael RPA C Unavailable Unavailable Charlebois, A Michael RPA C Unavailable Unavailable Charlebois, A Michael RPA C Unavailable Unavailable Monica Bal MD Unavailable Unavailable [...] Unavailable Unavailable Monica Bal MD Unavailable Unavailable Bridger Rojo Unavailable Unavailable Bridger Rojo Unavailable Unavailable Rojo, M Barratt PA Unavailable [...] Unavailable Rojo, M Barratt PA Unavailable Unavailable Angel Gao MD Unavailable Unavailable Angel Gao MD Unavailable Unavailable Angel Gao MD Unavailable Unavailable Angel Gao MD Unavailable Unavailable Angel Gao MD Unavailable Unavailable Angel Gao MD Unavailable Unavailable Jumalon, M Mar RUSSIAN TEACHER Unavailable Unavailable Jumalon, M Mar RUSSIAN TEACHER Unavailable Unavailable Jumalon, M Mar RUSSIAN TEACHER Unavailable Unavailable Jumalon, M Mar RUSSIAN TEACHER Unavailable Unavailable Jumalon, M Mar RUSSIAN TEACHER Unavailable Unavailable Jumalon, M Mar RUSSIAN TEACHER Unavailable Unavailable Jumalon, M Mar RUSSIAN TEACHER Unavailable Unavailable Jumalon, M Mar RUSSIAN TEACHER Unavailable Unavailable Jumalon, M Mar RUSSIAN TEACHER Unavailable Unavailable Jumalon, M Mar RUSSIAN TEACHER Unavailable Unavailable Jumalon, M Mar RUSSIAN TEACHER Unavailable Unavailable Jumalon, M Mar RUSSIAN TEACHER Unavailable Unavailable Jumalon, M Mar RUSSIAN TEACHER Unavailable Unavailable Jumalon, M Mar RUSSIAN TEACHER Unavailable Unavailable Jumalon, M Mar RUSSIAN TEACHER Unavailable Unavailable Jumalon, M Mar RUSSIAN TEACHER Unavailable Unavailable Jumalon, M Mar RUSSIAN TEACHER Unavailable Unavailable Jumalon, M Mar RUSSIAN TEACHER Unavailable Unavailable Jumalon, M Mar RUSSIAN TEACHER Unavailable Unavailable Jumalon, M Mar RUSSIAN TEACHER Unavailable Unavailable Jumalon, M Mar RUSSIAN TEACHER Unavailable Unavailable Jumalon, M Mar RUSSIAN TEACHER Unavailable Unavailable Jumalon, M Mar RUSSIAN TEACHER Unavailable Unavailable Jumalon, M Mar RUSSIAN TEACHER Unavailable Unavailable Jumalon, M Mar RUSSIAN TEACHER Unavailable Unavailable Jumalon, M Mar RUSSIAN TEACHER Unavailable Unavailable Jumalon, M Mar RUSSIAN TEACHER Unavailable Unavailable Jumalon, M Mar RUSSIAN TEACHER Unavailable Unavailable Jumalon, M Mar RUSSIAN TEACHER Unavailable Unavailable Jumalon, M Mar RUSSIAN TEACHER Unavailable Unavailable Rechlin, P Andrea DO Unavailable Unavailable Rechlin, P Andrea DO Unavailable Unavailable Rechlin, P Andrea DO Unavailable Unavailable Rechlin, P Andrea DO Unavailable Unavailable Rechlin, Demetrius Mendez DO Unavailable Unavailable Rechlin, Demetrius Mendez DO Unavailable Unavailable Rechlin, Demetrius Mendez DO Unavailable Unavailable Rechlin, Demetrius Mendez DO Unavailable Unavailable Rechlin, Demetrius Mendez DO Unavailable Unavailable Rechlin, Demetrius Mendez DO Unavailable Unavailable Rechlin, Demetrius Mendez DO Unavailable Unavailable Rechlin, Demetrius Mendez DO Unavailable Unavailable Rechlin, Demetrius Mendez DO Unavailable Unavailable Rechlin, Demetrius Mendez DO Unavailable Unavailable Rechlin, Demetrius Mendez DO Unavailable Unavailable Rechlin, Demetrius Mendez DO Unavailable Unavailable Rechlin, Demetrisu Mendez DO Unavailable Unavailable Rechlin, Demetrius Mendez DO Unavailable Unavailable Rechlin, Demetrius Mendez DO Unavailable Unavailable Rechlin, Demetrius Mendez DO Unavailable Unavailable Rechlin, Demetrius Mendez DO Unavailable Unavailable Rechlin, Demetrius Mendez DO Unavailable Unavailable Rechlin, Demetrius Mendez DO Unavailable Unavailable Rechlin, Demetrius Mendez DO Unavailable Unavailable Rechlin, Demetrius Mendez DO Unavailable Unavailable Rechlin, Demetrius Mendez DO Unavailable Unavailable Rechlin, Demetrius Mendez DO Unavailable Unavailable Rechlin, P Andrea DO Unavailable Unavailable Rechlin, P Andrea DO Unavailable Unavailable Rechlin, P Andrea DO Unavailable Unavailable Rechlin, P Andrea DO Unavailable Unavailable Rechlin, P Andrea DO Unavailable Unavailable Rechlin, P Andrea DO Unavailable Unavailable Rechlin, Demetrius Mendez DO Unavailable Unavailable Rechlin, Demetrius Mendez DO Unavailable Unavailable Rechlin, P Andrea DO Unavailable Unavailable Rechlin, Demetrius Mendez DO Unavailable Unavailable Rechlin, Demetrius Mendez DO Unavailable Unavailable Rechlin, Demetrius Mendez DO Unavailable Unavailable Rechlin, Demetrius Mendez DO Unavailable Unavailable Rechlin, Demetrius Mendez DO Unavailable Unavailable Rechlin, Demetrius Mendez DO Unavailable Unavailable Rechlin, Demetrius Mendez DO Unavailable Unavailable Rechlin, P Andrea DO Unavailable Unavailable Rechlin, P Andrea DO Unavailable Unavailable Rechlin, P Andrea DO Unavailable Unavailable Rechlin, P Andrea DO Unavailable Unavailable Rechlin, P Andrea DO Unavailable Unavailable Rechlin, P Andrea DO Unavailable Unavailable Rechlin, P Andrea DO Unavailable Unavailable Rechlin, P Andrea DO Unavailable Unavailable Forest, Temitope Amira Unavailable Unavailable [...] Unavailable Unavailable Forest, Temitope Amira Unavailable Unavailable Re-disclosure Warning The records that [...] is protected by Article 27-F of the [facility] Public Health law. If you continue you may have access to information: Regarding HIV / AIDS; Provided by facilities licensed or operated by the [facility] Office of Mental Health; or Provided by the [facility] Office for People With Developmental Disabilities. If such information is present, then the following [facility] mandated warning applies: This information [...] law may result in a fine or group home sentence or both. A general authorization for the release of medical or other information is NOT sufficient authorization for further disc losure. Family History Family Member Name Family Member Gender Family Member Status Date o f Status Description Data Source(s) Unknown Unknown Problem MEDENT ([facility], ) sister age 48 and another age 59 alive Encounters Encounter Providers Location Date Indications Data Source(s ) Unknown [address] [facility] [address] 12/19/2020 12:00:00 AM EDT [facility] Unknown [address] [facility] [place] [address] 12/19/2020 12:00:00 AM EDT eCW1 ([facility]) Unknown [address] [facility] [place] [address] 12/19/2020 12:00:00 AM EDT eCW1 ([facility]) Unknown [address] [facility] [place] [address] 12/16/2020 12:00:00 AM EDT eCW1 ([facility]) Unknown [address] [facility] [place] [address] 12/15/2020 12:00:00 AM EDT eCW1 ([facility] [place] Unknown [address] [facility] [place] [address] 12/05/2020 12:00:00 AM EDT eCW1 ([facility] [place]) Unknown [address] [facility] [place] [address] 11/18/2020 12:00:00 AM EDT eCW1 ([facility]) Unknown [address] [facility] [place] [address] 11/17/2020 12:00:00 AM EDT eCW1 ([facility]) Outpatient [address] [facility] [address] 11/14/2020 12:00:00 AM EDT eCW1 ([facility]) Unknown [address] [facility] [place] [address] 11/14/2020 12:00:00 AM EDT eCW1 ([facility]) Unknown [address] [facility] [address] 11/14/2020 12:00:00 AM EDT eCW1 ([facility]) Unknown [address] [facility] [address] 11/13/2020 12:00:00 AM EDT eCW1 ([facility] Unknown [address] [facility] [place] [address] 11/04/2020 12:00:00 AM EDT eCW1 ([facility] Unknown [address] [facility] [place] [address] 11/03/2020 12:00:00 AM EDT eCW1 ([facility]) Oleg Ling MD: [address] [address], [facility] [place] [address], Ph. Attender: Oleg Ling MD [place] - [facility] - Main Office 10/24/2020 12:00:00 AM EDT MARILIA ([facility]) Office Visit Attender: Bren RODRIGES Physical Therapy 01:15:00 PM EDT MEDENT ([facility]) Outpatient [address] [facility] [address] 10/21/2020 12:00:00 AM EDT eCW1 ([facility] Unknown [address] [facility] [place] [address] 10/21/2020 12:00:00 AM EDT eCW1 ([facility]) Oleg Ling MD: [address], [address] [place], [place] [address], Ph. [phone] Attender: Oleg Ling MD [place] - [facility] 10/20/2020 12:00:00 AM EDT MARILIA ([facility]) Oleg Ling MD: [address], [place] [address], Ph. [phone] Attender: Oleg Ling MD [place] - [facility] 10/20/2020 12:00:00 AM EDT MARILIA ([facility]) Outpatient Attender: Michael Glover/Riri/Angel adame/Avery 10/15/2020 01:00:00 PM EDT EVELYNE ([facility] maikel, ) Mar Smith, POURED PIPE MAKER: [address], [place] [address], Ph. Attender: [facility] 10/15/2020 12:00:00 AM EDT ATHE NA ([facility]) Mar Smith, POURED PIPE MAKER: [address], [place] [address], Ph. Attender: Mar Diyadelmis [facility] 10/15/2020 12:00:00 AM EDT ATHE NA ([facility]) Mar Smith, POURED PIPE MAKER: [address], [place] [address], Ph. Attender: Mar Diyadelmis [facility] 10/15/2020 12:00:00 AM EDT ATHE NA ([facility]) Outpatient Attender: Andrea Sterling/Riri/Mil/Joe ndl 10/08/2020 09:30:00 AM EDT MEDENT ([facility] Unknown [address] [facility] [address] 10/07/2020 12:00:00 AM EDT eCW1 ([facility]) Outpatient [address] [facility] [place] [address] 09/22/2020 12:00:00 AM EDT eCW1 ([facility] Unknown [address] [facility] [place] [address] 09/04/2020 12:00:00 AM EDT eCW1 ([facility]) Unknown [address] [facility] N [place] [address] 08/28/2020 12:00:00 AM EDT eCW1 ([facility]) Unknown [address] [facility] N [place] [address] 08/27/2020 12:00:00 AM EDT eCW1 ([facility]) Unknown [address] [facility] [place] [address] 08/25/2020 12:00:00 AM EDT eCW1 ([facility]) Unknown [address] [facility] [place] [address] 08/14/2020 12:00:00 AM EDT eCW1 ([facility]) Outpatient Attender: Amira Garg 08/11/2020 11:00:00 PM E DT [facility] Outpatient Attender: Amira Garg Sharri/ [facility] 04:00:00 PM EDT MEDENT ([facility]) Oleg Ling MD: [address] [address], [facility] [place] [address], Ph. [phone] Attender: Oleg CHAIREZ - [facility] - Main Office 08/11/2020 12:00:00 AM EDT MARILIA ([facility]) Oleg Ling MD: [address], [address], [place] [address], Ph. [phone] Attender: Oleg Ling MD [place] - [facility] 08/11/2020 12:00:00 AM EDT MARILIA ([facility]) Oleg Ling MD: [address], [address], [place] [address], Ph. [phone] Attender: Oleg Ling MD [place] - [facility] 08/11/2020 12:00:00 AM EDT MARILIA ([facility]) Oleg Ling MD: [address], [place] [address], Ph. [phone] Attender: Oleg Ling MD [place] - [facility] 08/11/2020 12:00:00 AM EDT MARILIA ([facility]) Mar Smith, POURED PIPE MAKER: [address], [place] [address], Ph. Attender: Mar Smith [facility] - [facility] 08/06/2020 12:00:00 AM EDT ATHMarichuy FLORES ([facility]) Mar Smith, POURED PIPE MAKER: [address], [place] [address], Ph. Attender: Mar Smith [facility] - [facility] 08/06/2020 12:00:00 AM EDT VANCE FLORES ([facility]) Mar Smith, POURED PIPE MAKER: [address], [place] [address], Ph. Attender: Mar Smith [facility] - [facility] 08/06/2020 12:00:00 AM EDT ATHE NA ([facility]) Mar Smith, POURED PIPE MAKER: [address], [address], [place] [address], Ph. Attender: Mar Smith [facility] - [facility] Office 08/06/2020 12:00:00 AM EDT ATHE NA ([facility]) Mar Smith, POURED PIPE MAKER: [address], [address], [place] [address], Ph. Attender: Mar Smith [facility] - [facility] Office 08/06/2020 12:00:00 AM EDT ATHMarichuy NA ([facility]) Office Visit Attender: Bren RODRIGES Physical Therapy 10:30:00 AM EDT MEDENT ([facility]) Outpatient Attender: Monica Bal MD 07/14/2020 11:00:00 PM EDT [facility] Outpatient Attender: Monica Bal MD Clayton/ Steffen torres 07/14/2020 03:30:00 PM EDT MEDENT [facility] Unknown [address] [facility] [address] 07/08/2020 12:00:00 AM EDT eCW1 ([facility]) Unknown [address] [facility] [address] 07/07/2020 12:00:00 AM EDT eCW1 ([facility]) Outpatient [address] [facility] [address] 07/04/2020 12:00:00 AM EDT eCW1 ([facility]) Unknown [address] [facility] [address] 07/04/2020 12:00:00 AM EDT eCW1 ([facility]) Unknown [address] [facility] [place] [address] 07/04/2020 12:00:00 AM EDT eCW1 ([facility]) Unknown [address] [facility] [place] [address] 07/04/2020 12:00:00 AM EDT eCW1 ([facility]) Unknown [address] [facility] [place] [address] 07/03/2020 12:00:00 AM EDT eCW1 ([facility]) Unknown [address] [facility] [place] [address] 06/30/2020 12:00:00 AM EDT eCW1 ([facility]) Unknown [address] [facility] [place] [address] 06/25/2020 12:00:00 AM EDT eCW1 ([facility]) Unknown [address] [facility] [place] [address] 06/19/2020 12:00:00 AM EDT eCW1 ([facility]) Unknown [address] [facility] [address] 06/19/2020 12:00:00 AM EDT eCW1 ([facility]) Unknown [address] [facility] [place] [address] 06/17/2020 12:00:00 AM EDT eCW1 ([facility]) Unknown [address] [facility] [place] [address] 06/13/2020 12:00:00 AM EDT eCW1 ([facility]) Unknown [address] [facility] [place] [address] 06/09/2020 12:00:00 AM EDT eCW1 ([facility]) Unknown [address] [facility] [place] [address] 06/04/2020 12:00:00 AM EDT eCW1 ([facility]) Unknown [address] [facility] [place] [address] 05/26/2020 12:00:00 AM EDT eCW1 [facility] Outpatient [address] [facility] [place] [address] 05/26/2020 12:00:00 AM EDT eCW1 [facility] Unknown [address] [facility] [place] [address] 05/20/2020 12:00:00 AM EDT eCW1 ([facility] Unknown [address] [facility] [place] [address] 05/15/2020 12:00:00 AM EST eCW1 ([facility] Outpatient [address] [facility] [place] [address] 05/12/2020 12:00:00 AM EST eCW1 ([facility] [place]) Mar Smith, POURED PIPE MAKER: [address], [place] [address], Ph. Attender: Mar Smith [facility] 04/15/2020 12:00:00 AM EST ATHE NA ([facility]) Mar Smith, POURED PIPE MAKER: [address], [place] [address], Ph. Attender: Mar Smith [facility] 04/15/2020 12:00:00 AM EST ATHE NA ([facility]) Mar Smith, POURED PIPE MAKER: [address], [place] [address], Ph. Attender: Mar Smith [facility] 04/15/2020 12:00:00 AM EST ATHE NA ([facility]) Mar Smith, POURED PIPE MAKER: [address], [place] [address], Ph. Attender: Mar Smith [facility] - [facility] 04/15/2020 12:00:00 AM EST ATHE NA ([facility]) Mar Smith, POURED PIPE MAKER: [address], [place] [address], Ph. Attender: Mar Smith [facility] - [facility] 04/15/2020 12:00:00 AM EST ATHE NA ([facility]) Mar Smith, POURED PIPE MAKER: [address], [place] [address], Ph. Attender: Mar Smith [facility] 04/15/2020 12:00:00 AM EST ATHE NA ([facility]) Outpatient Attender: Monica Bal MD 04/07/2020 09:05 :00 PM EST [facility] Outpatient Attender: Monica Bal MD [place]/ AKelsieMDamaso [facility] 04/07/2020 12:15:00 PM EST MEDENT [facility] Oleg Ling MD: [address], [facility] [place] [address], Ph. Attender: Oleg Ling MD [place] - [facility] 03/31/2020 12:00:00 AM EST MARILIA ([facility]) Oleg Ling MD: [address], [place] [address], Ph. Attender: Oleg Ling MD [facility] 03/31/2020 12:00:00 AM EST MARILIA ([facility]) Oleg Ling MD: [address], [place] [address], Ph. Attender: Oleg CHAIREZ - [facility] 03/31/2020 12:00:00 AM EST MARILIA ([facility]) Oleg Ling MD: [address]8938 [address], [place] [address], Ph. Attender: Oleg CHAIREZ - [facility] 03/31/2020 12:00:00 AM EST MARILIA ([facility]) Oleg Ling MD: [address]105 [address], [place] [address], Ph. Attender: Oleg CHAIREZ - [facility] 03/31/2020 12:00:00 AM EST MARILIA ([facility]) Oleg Ling MD: 14740 [address], [place] [address], Ph. Attender: Oleg CHAIREZ - [facility] 03/31/2020 12:00:00 AM EST MARILIA ([facility]) Oleg Ling MD: [address]3318 [address], [place] [address], Ph. Attender: Oleg CHAIREZ - [facility] 03/31/2020 12:00:00 AM EST MARILIA ([facility]) OFFICE OUTPATIENT VISIT 15 MINUTES Attender: Bren [facility] 03/27/2020 12:45:00 PM EST MEDENT ([facility]) Oleg Ling MD: [address]955 [address], [place] [address], Ph. [phone] Attender: Oleg CHAIREZ - [facility] Office 03/26/2020 12:00:00 AM EST MARILIA ([facility]) Oleg Ling MD: [address]80 [address], [address], [place] [address], Ph. [phone] Attender: Oleg Ling MD NM - [facility] 03/26/2020 12:00:00 AM EST MARILIA ([facility]) Oleg Ling MD: [address]37 [address], [address], [place] [address], Ph. [phone] Attender: Oleg Ling MD NM - [facility] 03/26/2020 12:00:00 AM EST MARILIA ([facility]) Oleg Ling MD: [address]393 [address], [address], [place] [address], Ph. [phone] Attender: Oleg Ling MD NM - [facility] 03/26/2020 12:00:00 AM EST MARILIA ([facility]) Oleg Ling MD: 43080 [address], [address], [place] [address], Ph. [phone] Attender: Oleg Ling MD NM - [facility] 03/26/2020 12:00:00 AM EST MARILIA ([facility]) Oleg Ling MD: [address]10 [address], [address], [place] [address], Ph. [phone] Attender: Oleg Ling MD NM - [facility] 03/26/2020 12:00:00 AM EST MARILIA ([facility]) Oleg Ling MD: 50590 [address], [address], [place] [address], Ph. [phone] Attender: Oleg Ling MD NM - [facility] 03/26/2020 12:00:00 AM EST MARILIA ([facility]) Oleg Ling MD: 33427 [address], [address], [place] [address], Ph. [phone] Attender: Oleg Ling MD NM - [facility] 03/26/2020 12:00:00 AM EST MARILIA ([facility]) Mar Smith, POURED PIPE MAKER: [address], [facility] [place] [address], Ph. Attender: Mar Smith [facility] - [facility] 03/18/2020 12:00:00 AM EST ATHE NA ([facility]) Mar Smith, POURED PIPE MAKER: [address]69 [address], [place] [address], Ph. Attender: Mar Smith [facility] 03/18/2020 12:00:00 AM EST ATHE NA ([facility]) Mar Smith, POURED PIPE MAKER: [address]133 [address], [place] [address], Ph. Attender: Mar Smith [facility] - [facility] 03/18/2020 12:00:00 AM EST ATHE NA ([facility]) Mar Smith, POURED PIPE MAKER: [address]755 [address], [place] [address], Ph. Attender: Mar Smith [facility] - [facility] 03/18/2020 12:00:00 AM EST ATHE NA ([facility]) Mar Smith, POURED PIPE MAKER: [address], [place] [address], Ph. Attender: Mar Smith [facility] 03/18/2020 12:00:00 AM EST ATHE NA ([facility]) Mar Smith, POURED PIPE MAKER: 74372 [address], [place] [address], Ph. Attender: Mar Smith [facility] - [facility] 03/18/2020 12:00:00 AM EST ATHE NA ([facility]) Mar Smith, POURED PIPE MAKER: [address]22 [address], [place] [address], Ph. Attender: Mar Smith [facility] - [facility] 03/18/2020 12:00:00 AM EST ATHE NA ([facility]) Mar Smith, POURED PIPE MAKER: [address], [place] [address], Ph. Attender: Mar Smith [facility] - [facility] 03/18/2020 12:00:00 AM EST ATHE NA ([facility]) Mar Smith, POURED PIPE MAKER: [address]166 [address], [place] [address], Ph. Attender: Mar Smith [facility] - [facility] 03/18/2020 12:00:00 AM EST ATHE NA ([facility]) Unknown [address] [facility] [address] 03/14/2020 12:00:00 AM EST eCW1 ([facility]) Unknown [address] [facility] [address] 03/13/2020 12:00:00 AM EST eCW1 ([facility]) Outpatient Attender: Andrea Sterling/Riri/Mil/Joe ndl 03/12/2020 09:00:00 AM EST MEDENT ([facility]) Mar Smith, POURED PIPE MAKER: [address], [address], [place] [address], Ph. Attender: Mar Smith [facility] - [facility] 02/14/2020 12:00:00 AM EST ATHE NA ([facility]) Mar Smith, POURED PIPE MAKER: [address], [address], [place] [address], Ph. Attender: Mar Smith [facility] - [facility] 02/14/2020 12:00:00 AM EST ATHE NA ([facility]) Mar Smith, POURED PIPE MAKER: [address]754 [address], [place] [address], Ph. Attender: Mar Smith [facility] - [facility] 02/14/2020 12:00:00 AM EST ATHE NA ([facility]) Mar Smith, POURED PIPE MAKER: 46072 [address], [place] [address], Ph. Attender: Mar Smith [facility] - [facility] 02/14/2020 12:00:00 AM EST ATHE NA ([facility]) Mar Smith, POURED PIPE MAKER: [address]36 [address], [address], [place] [address], Ph. Attender: Mar Smith [facility] - [facility] 02/14/2020 12:00:00 AM EST ATHE NA ([facility]) Mar Smith, POURED PIPE MAKER: [address]25 [address], [place] [address], Ph. Attender: Mar Smith [facility] - [facility] 02/14/2020 12:00:00 AM EST ATHE NA ([facility]) Mar Smith, POURED PIPE MAKER: [address]4574 [address], [place] [address], Ph. Attender: Mar Smith [facility] - [facility] 02/14/2020 12:00:00 AM EST ATHE NA ([facility]) Mar Smith, POURED PIPE MAKER: [address]57 [address], [place] [address], Ph. Attender: Mar Smith [facility] - [facility] 02/14/2020 12:00:00 AM EST ATHE NA ([facility]) Mar Smith, POURED PIPE MAKER: [address]74 [address], [place] [address], Ph. 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 Attender: Mar Smith [facility] - [facility] 02/14/2020 12:00:00 AM EST ATHE NA ([facility]) Unknown [address] [facility] [address] 02/13/2020 12:00:00 AM EST eCW1 ([facility]) Unknown [address] [facility] [address] 02/06/2020 12:00:00 AM EST eCW1 ([facility]) Outpatient Attender: Amira Garg 01/10/2020 11:00:00 PM [facility] Outpatient Attender: Amira Harrell/ [facility] 12:30:00 PM EST MEDREMY ([facility] Preadmit Attender: Cesario Gao MD 01/03/2020 12:00:00 AM EDT S/P R FEMUR FX [facility] S/P R FEMUR FX Outpatient Attender: Monica Bal MD 12/11/2019 11:00 :00 PM EDT [facility] Unknown [address] [facility] [address] 12/06/2019 12:00:00 AM EDT eCW1 ([facility]) Unknown [address] [facility], [place] [address] 12/05/2019 12:00:00 AM EDT eCW1 ([facility]) Oleg Ling MD: 12350 [address], [address] [place], [place] [address], Ph. Attender: Oleg CHAIREZ - [facility] 12/03/2019 12:00:00 AM EDT MARILIA ([facility]) Oleg Ling MD: 30760 [address], [address], [place] [address], Ph. Attender: Oleg CHAIREZ - [facility] 12/03/2019 12:00:00 AM EDT MARILIA ([facility]) Oleg Ling MD: 85474 [address], [address], [place] [address], Ph. Attender: Oleg CHAIREZ - [facility] 12/03/2019 12:00:00 AM EDT MARILIA ([facility]) Oleg Ling MD: 03930 [address], [place] [address], Ph. Attender: Oleg CHAIREZ - [facility] 12/03/2019 12:00:00 AM EDT MARILIA ([facility]) Oleg Ling MD: 66225 [address], [address], [place] [address], Ph. Attender: Oleg CHAIREZ - [facility] 12/03/2019 12:00:00 AM EDT MARILIA ([facility]) Oleg Ling MD: 15800 [address], [address], [place] [address], Ph. Attender: Oleg CHAIREZ - [facility] 12/03/2019 12:00:00 AM EDT MARILIA ([facility]) Oleg Ling MD: 67476 [address], [address], [place] [address], Ph. Attender: Oleg CHAIREZ - [facility] 12/03/2019 12:00:00 AM EDT MARILIA ([facility]) Oleg Ling MD: 70880 [address], [address], [place] [address], Ph. Attender: Oleg CHAIREZ - [facility] 12/03/2019 12:00:00 AM EDT MARILIA ([facility]) Oleg Ling MD: 03223 [address], [address], [place] [address], Ph. Attender: Oleg CHAIREZ - [facility] 12/03/2019 12:00:00 AM EDT MARILIA ([facility]) Oleg Ling MD: 69469 [address], [address], [place] [address], Ph. Attender: Oleg CHAIREZ - [facility] 12/03/2019 12:00:00 AM EDT MARILIA ([facility]) Oleg Ling MD: 84607 [address], [address], [place] [address], Ph. Attender: Oleg Ling MD NM - [facility] - [facility] 12/03/2019 12:00:00 AM EDT MARILIA ([facility]) Oleg Ling MD: 78884 [address], [address], [place] [address], Ph. [phone] Attender: Oleg Ling MD NM - [facility] - [facility] 11/28/2019 12:00:00 AM EDT MARILIA ([facility]) Oleg Ling MD: 99997 [address], [address], [place] [address], Ph. [phone] Attender: Oleg Ling MD [place] - [facility] 11/28/2019 12:00:00 AM EDT MARILIA ([facility]) Oleg Ling MD: 71690 [address], [address], [place] [address], Ph. [phone] Attender: Oleg Ling MD NM - [facility] - [facility] 11/28/2019 12:00:00 AM EDT MARILIA ([facility]) Oleg Ling MD: 20058 [address], [address], [place] [address], Ph. [phone] Attender: Oleg Ling MD NM - [facility] - [facility] 11/28/2019 12:00:00 AM EDT MARILIA ([facility]) Oleg Ling MD: 04801 [address], [address], [place] [address], Ph. [phone] Attender: Oleg Ling MD NM - [facility] 11/28/2019 12:00:00 AM EDT MARILIA ([facility]) Oleg Ling MD: 87100 [address], [address], [place] [address], Ph. [phone] Attender: Oleg Ling MD NM - [facility] 11/28/2019 12:00:00 AM EDT MARILIA ([facility]) Oleg Ling MD: 24853 [address], [address], [place] [address], Ph. [phone] Attender: Oelg Ling MD NM - [facility] 11/28/2019 12:00:00 AM EDT MARILIA ([facility]) Oleg Ling MD: 51387 [address], [address], [place] [address], Ph. [phone] Attender: Oleg Ling MD NM - [facility] 11/28/2019 12:00:00 AM EDT MARILIA ([facility]) Oleg Ling MD: 75113 [address], [address], [place] [address], Ph. [phone] Attender: Oleg Ling MD NM - [facility] 11/28/2019 12:00:00 AM EDT MARILIA ([facility]) Oleg Ling MD: 37419 [address], [address], [place] [address], Ph. [phone] Attender: Oleg CHAIREZ - [facility] 11/28/2019 12:00:00 AM EDT MARILIA ([facility]) Oleg Ling MD: 76131 [address], [address], [place] [address], Ph. [phone] Attender: Oleg Ling MD NM - [facility] 11/28/2019 12:00:00 AM EDT MARILIA ([facility]) Oleg Ling MD: 80960 [address], [address], [place] [address], Ph. [phone] Attender: Oleg Ling MD NM - [facility] 11/28/2019 12:00:00 AM EDT MARILIA ([facility]) Oleg Ling MD: 76420 [address], [address], [place] [address], Ph. [phone] Attender: Oleg CHAIREZ - [facility] 11/23/2019 12:00:00 AM EDT MARILIA ([facility]) Oleg Ling MD: 61349 [address], [address], [place] [address], Ph. [phone] Attender: Oleg CHAIREZ - [facility] 11/23/2019 12:00:00 AM EDT MARILIA ([facility]) Oleg Ling MD: 50625 [address], [address], [place] [address], Ph. [phone] Attender: Oleg CHAIREZ - [facility] 11/23/2019 12:00:00 AM EDT MARILIA ([facility]) Oleg Ling MD: 97695 [address], [address], [place] [address], Ph. [phone] Attender: Oleg Ling MD NM - [facility] 11/23/2019 12:00:00 AM EDT MARILIA ([facility]) Oleg Ling MD: 80701 [address], [address], [place] [address], Ph. [phone] Attender: Oleg Ling MD NM - [facility] 11/23/2019 12:00:00 AM EDT MARILIA ([facility]) Oleg Ling MD: 77973 [address], [address], [place] [address], Ph. [phone] Attender: Oleg CHAIREZ - [facility] 11/23/2019 12:00:00 AM EDT MARILIA ([facility]) Oleg Ling MD: 25629 [address], [address], [place] [address], Ph. [phone] Attender: Oleg Ling MD NM - [facility] 11/23/2019 12:00:00 AM EDT MARILIA ([facility]) Oleg Ling MD: 74734 [address], [address], [place] [address], Ph. [phone] Attender: Oleg Ling MD NM - [facility] 11/23/2019 12:00:00 AM EDT MARILIA ([facility]) Oleg Ling MD: 25781 [address], [address], [place] [address], Ph. [phone] Attender: Oleg Ling MD NM - [facility] 11/23/2019 12:00:00 AM EDT MARILIA ([facility]) Oleg Ling MD: 00947 [address], [address], [place] [address], Ph. [phone] Attender: Oleg Ling MD NM - [facility] 11/23/2019 12:00:00 AM EDT MARILIA ([facility]) Oleg Ling MD: 26242 [address], [address], [place] [address], Ph. [phone] Attender: Oleg Ling MD [place] - [facility] 11/23/2019 12:00:00 AM EDT MARILIA ([facility]) Oleg Ling MD: 74302 [address], [address], [place] [address], Ph. [phone] Attender: Oleg Ling MD NM - [facility] 11/23/2019 12:00:00 AM EDT MARILIA ([facility]) Oleg Ling MD: 48617 [address], [address], [place] [address], Ph. [phone] Attender: Oleg Ling MD NM - [facility] 11/23/2019 12:00:00 AM EDT MARILIA ([facility]) Mar Smith, POURED PIPE MAKER: [address]502 [address], [place] [address], Ph. Attender: Mar Sarah [facility] - [facility] 11/22/2019 12:00:00 AM EDT ATHE NA ([facility]) Mar Smith, POURED PIPE MAKER: 56243 [address], [place] [address], Ph. Attender: Mar Juabigailyue [facility] - [facility] 11/22/2019 12:00:00 AM EDT ATHE NA ([facility]) Mar Smith, POURED PIPE MAKER: 96903 [address], [place] [address], Ph. Attender: Mar Diyaabigailyue [facility] - [facility] 11/22/2019 12:00:00 AM EDT ATHE NA ([facility]) Mar Jennifer Smith, POURED PIPE MAKER: 86923 [address], [address], [place] [address], Ph. Attender: Mar Diyaabigailyue [facility] - [facility] 11/22/2019 12:00:00 AM EDT ATHMarichuy NA ([facility]) Mar Smith, POURED PIPE MAKER: 74106 [address], [place] [address], Ph. Attender: Mar Smith [facility] - [facility] 11/22/2019 12:00:00 AM EDT ATHE NA ([facility]) Mar Smith, POURED PIPE MAKER: 04535 [address], [place] [address], Ph. Attender: Mar Smith [facility] - [facility] 11/22/2019 12:00:00 AM EDT ATHE NA ([facility]) Mar Smith, POURED PIPE MAKER: 04005 [address], [address], [place] [address], Ph. Attender: Mar Smith [facility] - [facility] 11/22/2019 12:00:00 AM EDT ATHE NA ([facility]) Mar Smith, POURED PIPE MAKER: 70988 [address], [place] [address], Ph. Attender: Mar Smith [facility] - [facility] 11/22/2019 12:00:00 AM EDT ATHE NA ([facility]) Mar Smith, POURED PIPE MAKER: 87892 [address], [place] [address], Ph. Attender: Mar Smith [facility] - [facility] 11/22/2019 12:00:00 AM EDT ATHE NA ([facility]) Mar Smith, POURED PIPE MAKER: 36747 [address], [address], [place] [address], Ph. Attender: Mar Smith [facility] - [facility] 11/22/2019 12:00:00 AM EDT ATHE NA ([facility]) Mar Smith, POURED PIPE MAKER: 24660 [address], [address], [place] [address], Ph. Attender: Mar Smith [facility] - [facility] 11/22/2019 12:00:00 AM EDT ATHE NA ([facility]) Mar Smith, POURED PIPE MAKER: 07305 [address], [place] [address], Ph. Attender: Mar Smith [facility] - [facility] 11/22/2019 12:00:00 AM EDT ATHE NA ([facility]) Mar Smith, POURED PIPE MAKER: 62940 [address], [place] [address], Ph. Attender: Mar Smith [facility] - [facility] 11/22/2019 12:00:00 AM EDT ATHE NA ([facility]) Mar Smith, POURED PIPE MAKER: 89987 [address], [place] [address], Ph. Attender: Mar Smith [facility] - [facility] 11/22/2019 12:00:00 AM EDT ATHE NA ([facility]) Oleg Ling MD: 18995 [address], [place] [address], Ph. Attender: Oleg Ling MD [place] - [facility] 11/07/2019 12:00:00 AM EDT MARILIA ([facility]) Oleg Ling MD: 20948 [address], [place] [address], Ph. Attender: Oleg iLng MD [place] - [facility] 11/07/2019 12:00:00 AM EDT MARILIA ([facility]) Oleg Ling MD: 79608 [address], [address], [place] [address], Ph. Attender: Oleg Ling MD [place] - [facility] 11/07/2019 12:00:00 AM EDT MARILIA ([facility]) Oleg Ling MD: 58692 [address], [address], [place] [address], Ph. Attender: Oleg Ling MD [place] - [facility] 11/07/2019 12:00:00 AM EDT MARILIA ([facility]) Oleg Ling MD: 99152 [address], [address], [place] [address], Ph. Attender: Oleg Ling MD [place] - [facility] 11/07/2019 12:00:00 AM EDT MARILIA ([facility]) Oleg Ling MD: 84452 [address], [address], [place] [address], Ph. Attender: Oleg Ling MD NM - [facility] 11/07/2019 12:00:00 AM EDT MARILIA ([facility]) Oleg Ling MD: 33580 [address], [address], [place] [address], Ph. Attender: Oleg Ling MD [place] - [facility] 11/07/2019 12:00:00 AM EDT MARILIA ([facility]) Oleg Ling MD: 91280 [address], [address], [place] [address], Ph. Attender: Oleg CHAIREZ - [facility] 11/07/2019 12:00:00 AM EDT MARILIA ([facility]) Oleg Ling MD: 97065 [address], [address], [place] [address], Ph. Attender: Oleg Ling MD NM - [facility] 11/07/2019 12:00:00 AM EDT MARILIA ([facility]) Oleg Ling MD: 32378 [address], [address], [place] [address], Ph. Attender: Oleg Ling MD NM - [facility] 11/07/2019 12:00:00 AM EDT MARILIA ([facility]) Oleg Ling MD: 22514 [address], [address], [place] [address], Ph. Attender: Oleg Ling MD NM - [facility] 11/07/2019 12:00:00 AM EDT MARILIA ([facility]) Oleg Ling MD: 78574 [address], [address], [place] [address], Ph. Attender: Oleg CHAIREZ - [facility] 11/07/2019 12:00:00 AM EDT MARILIA ([facility]) Oleg Ling MD: 52876 [address], [address], [place] [address], Ph. Attender: Oleg CHAIREZ - [facility] 11/07/2019 12:00:00 AM EDT MARILIA ([facility]) Oleg Ling MD: 94232 [address], [address], [place] [address], Ph. Attender: Oleg CHAIREZ - [facility] 11/07/2019 12:00:00 AM EDT MARILIA ([facility]) Oleg Ling MD: 21070 [address], [address], [place] [address], Ph. Attender: Oleg Ling MD [place] - [facility] 11/07/2019 12:00:00 AM EDT MARILIA ([facility]) Oleg Ling MD: [id number], [address], [place] [address], Ph. [phone] Attender: Oleg Ling MD [place] - [facility] 11/02/2019 12:00:00 AM EDT MARILIA ([facility]) Oleg Ling MD: [id number], [address], [place] [address], Ph. [phone] Attender: Oleg Ling MD [place] - [facility] 11/02/2019 12:00:00 AM EDT MARILIA ([facility]) Oleg Ling MD: [id number], [address], [place] [address], Ph. [phone] Attender: Oleg CHAIREZ - [facility] 11/02/2019 12:00:00 AM EDT MARILIA ([facility]) Oleg Ling MD: [id number], [address], [place] [address], Ph. [phone] Attender: Oleg Ling MD [place] - [facility] 11/02/2019 12:00:00 AM EDT MARILIA ([facility]) Oleg Ling MD: [id number], [address], [place] [address], Ph. [phone] Attender: Oleg Ling MD [place] - [facility] 11/02/2019 12:00:00 AM EDT MARILIA ([facility]) Oleg Ling MD: [id number], [address], [place] [address], Ph. [phone] Attender: Oleg Ling MD [place] - [facility] 11/02/2019 12:00:00 AM EDT MARILIA ([facility]) Oleg Ling MD: [id number], [address], [place] [address], Ph. [phone] Attender: Oleg Ling MD [place] - [facility] 11/02/2019 12:00:00 AM EDT MARILIA ([facility]) Oleg Ling MD: [id number], [address], [place] [address], Ph. [phone] Attender: Oleg Ling MD [place] - [facility] 11/02/2019 12:00:00 AM EDT MARILIA ([facility]) Oleg Ling MD: [id number], [address], [place] [address], Ph. [phone] Attender: Oleg Ling MD [place] - [facility] 11/02/2019 12:00:00 AM EDT MARILIA ([facility]) Oleg Ling MD: [id number], [address], [place] [address], Ph. [phone] Attender: Oleg Ling MD [place] - [facility] 11/02/2019 12:00:00 AM EDT MARILIA ([facility]) Oleg Ling MD: [address], [address], [place] [address], Ph. [phone] Attender: Oleg Ling MD [place] - [facility] 11/02/2019 12:00:00 AM EDT MARILIA ([facility]) Oleg Ling MD: [address], [address], [place] [address], Ph. [phone] Attender: Oleg Ling MD [place] - [facility] 11/02/2019 12:00:00 AM EDT MARILIA ([facility]) Oleg Ling MD: [address], [place] [address], Ph. [phone] Attender: Oleg Ling MD [place] - [facility] 11/02/2019 12:00:00 AM EDT MARILIA ([facility]) Oleg Ling MD: [address], [address], [place] [address], Ph. [phone] Attender: Oleg Ling MD [place] - [facility] 11/02/2019 12:00:00 AM EDT MARILIA ([facility]) Oleg Ling MD: [address], [address], [place] [address], Ph. [phone] Attender: Oleg Ling MD [place] - [facility] 11/02/2019 12:00:00 AM EDT MARILIA ([facility]) Oleg Ling MD: [address], [place] [address], Ph. [phone] Attender: Oleg Ling MD [place] - [facility] 11/02/2019 12:00:00 AM EDT MARILIA ([facility]) Immunizations Vaccine Date Status Description Data Source(s) COVID-19 VACCINE Moderna 11/05/2020 12:00:00 AM EDT completed [place] Vaccine Series Complete: YESThis Data wa s Submitted to [facility] Via [employer]. COVID-19 VACCINE Moderna 10/01/2020 12:00:00 AM EDT completed [place] Vaccine Series Complete: NOThis Data was Submitted to [facility] Via [employer]. Medications Medication Brand Name Start Date Product Form Dose Route Admi nistrative Instructions Pharmacy Instructions Status Indications Reaction Description Data Source(s) NITROFURANTOIN, MACROCRYSTALS 25 MG / Ni trofurantoin, Monohydrate 75 MG Oral Capsule [Macrobid] Macrobid 100 MG Macrobid 100 MG 11/17/2020 12:00:00 AM EDT active Macrobid 100 MG eCW1 ([facility]) NITROFURANTOIN, MACROCRYSTALS 25 MG / Ni trofurantoin, Monohydrate 75 MG Oral Capsule [Macrobid] Macrobid 100 MG Macrobid 100 MG 11/17/2020 12:00:00 AM EDT active Macrobid 100 MG eCW1 ([facility]) NITROFURANTOIN, MACROCRYSTALS 25 MG / Ni trofurantoin, Monohydrate 75 MG Oral Capsule [Macrobid] Macrobid 100 MG Macrobid 100 MG 11/17/2020 12:00:00 AM EDT active Macrobid 100 MG eCW1 ([facility]) NITROFURANTOIN, MACROCRYSTALS 25 MG / Ni trofurantoin, Monohydrate 75 MG Oral Capsule [Macrobid] Macrobid 100 MG Macrobid 100 MG 11/17/2020 12:00:00 AM EDT active Macrobid 100 MG eCW1 ([facility]) NITROFURANTOIN, MACROCRYSTALS 25 MG / Ni trofurantoin, Monohydrate 75 MG Oral Capsule [Macrobid] Macrobid 100 MG Macrobid 100 MG 11/17/2020 12:00:00 AM EDT active Macrobid 100 MG eCW1 ([facility]) NITROFURANTOIN, MACROCRYSTALS 25 MG / Ni trofurantoin, Monohydrate 75 MG Oral Capsule [Macrobid] Macrobid 100 MG Macrobid 100 MG 11/17/2020 12:00:00 AM EDT active Macrobid 100 MG eCW1 ([facility]) NITROFURANTOIN, MACROCRYSTALS 25 MG / Ni trofurantoin, Monohydrate 75 MG Oral Capsule [Macrobid] Macrobid 100 MG Macrobid 100 MG 11/17/2020 12:00:00 AM EDT active Macrobid 100 MG eCW1 ([facility]) NITROFURANTOIN, MACROCRYSTALS 25 MG / Ni trofurantoin, Monohydrate 75 MG Oral Capsule [Macrobid] Macrobid 100 MG Macrobid 100 MG 11/17/2020 12:00:00 AM EDT active Macrobid 100 MG eCW1 ([facility]) NITROFURANTOIN, MACROCRYSTALS 25 MG / Ni trofurantoin, Monohydrate 75 MG Oral Capsule [Macrobid] Macrobid 100 MG Macrobid 100 MG 11/17/2020 12:00:00 AM EDT active Macrobid 100 MG eCW1 ([facility]) NITROFURANTOIN, MACROCRYSTALS 25 MG / Ni trofurantoin, Monohydrate 75 MG Oral Capsule [Macrobid] Macrobid 100 MG Macrobid 100 MG 11/17/2020 12:00:00 AM EDT active Macrobid 100 MG eCW1 ([facility]) NITROFURANTOIN, MACROCRYSTALS 25 MG / Ni trofurantoin, Monohydrate 75 MG Oral Capsule [Macrobid] Macrobid 100 MG Macrobid 100 MG 11/17/2020 12:00:00 AM EDT active Macrobid 100 MG eCW1 ([facility]) Mupirocin 0.02 MG/MG Topical Ointment Mupirocin 2 % Mupiroci n 2 % 11/14/2020 12:00:00 AM EDT active Mupiroci n 2 % eCW1 ([facility]) Mupirocin 0.02 MG/MG Topical Ointment Mupirocin 2 % Mupiroci n 2 % 11/14/2020 12:00:00 AM EDT active Mupiroci n 2 % eCW1 ([facility]) ferric carboxymaltose 50 MG/ML Injectabl e Solution [Injectafer] Injectafer 750 MG/15ML Injectafer 750 MG/15ML 11/14/2020 12:00:00 AM EDT active Injectafer 750 MG/15ML eCW1 ([facility]) Mupirocin 0.02 MG/MG Topical Ointment Mupirocin 2 % Mupiroci n 2 % 11/14/2020 12:00:00 AM EDT active Mupiroci n 2 % eCW1 ([facility]) ferric carboxymaltose 50 MG/ML Injectabl e Solution [Injectafer] Injectafer 750 MG/15ML Injectafer 750 MG/15ML 11/14/2020 12:00:00 AM EDT active Injectafer 750 MG/15ML eCW1 ([facility]) ferric carboxymaltose 50 MG/ML Injectabl e Solution [Injectafer] Injectafer 750 MG/15ML Injectafer 750 MG/15ML 11/14/2020 12:00:00 AM EDT active Injectafer 750 MG/15ML eCW1 ([facility]) Mupirocin 0.02 MG/MG Topical Ointment Mupirocin 2 % Mupiroci n 2 % 11/14/2020 12:00:00 AM EDT active Mupiroci n 2 % eCW1 ([facility]) Mupirocin 0.02 MG/MG Topical Ointment Mupirocin 2 % Mupiroci n 2 % 11/14/2020 12:00:00 AM EDT active Mupiroci n 2 % eCW1 ([facility]) ferric carboxymaltose 50 MG/ML Injectabl e Solution [Injectafer] Injectafer 750 MG/15ML Injectafer 750 MG/15ML 11/14/2020 12:00:00 AM EDT active Injectafer 750 MG/15ML eCW1 ([facility]) ferric carboxymaltose 50 MG/ML Injectabl e Solution [Injectafer] Injectafer 750 MG/15ML Injectafer 750 MG/15ML 11/14/2020 12:00:00 AM EDT active Injectafer 750 MG/15ML eCW1 ([facility]) Mupirocin 0.02 MG/MG Topical Ointment Mupirocin 2 % Mupiroci n 2 % 11/14/2020 12:00:00 AM EDT active Mupiroci n 2 % eCW1 ([facility]) ferric carboxymaltose 50 MG/ML Injectabl e Solution [Injectafer] Injectafer 750 MG/15ML Injectafer 750 MG/15ML 11/14/2020 12:00:00 AM EDT active Injectafer 750 MG/15ML eCW1 ([facility]) ferric carboxymaltose 50 MG/ML Injectabl e Solution [Injectafer] Injectafer 750 MG/15ML Injectafer 750 MG/15ML 11/14/2020 12:00:00 AM EDT active Injectafer 750 MG/15ML eCW1 ([facility]) Mupirocin 0.02 MG/MG Topical Ointment Mupirocin 2 % Mupiroci n 2 % 11/14/2020 12:00:00 AM EDT active Mupiroci n 2 % eCW1 ([facility]) ferric carboxymaltose 50 MG/ML Injectabl e Solution [Injectafer] Injectafer 750 MG/15ML Injectafer 750 MG/15ML 11/14/2020 12:00:00 AM EDT active Injectafer 750 MG/15ML eCW1 ([facility]) Mupirocin 0.02 MG/MG Topical Ointment Mupirocin 2 % Mupiroci n 2 % 11/14/2020 12:00:00 AM EDT active Mupiroci n 2 % eCW1 ([facility]) Mupirocin 0.02 MG/MG Topical Ointment Mupirocin 2 % Mupiroci n 2 % 11/14/2020 12:00:00 AM EDT active Mupiroci n 2 % eCW1 ([facility]) ferric carboxymaltose 50 MG/ML Injectabl e Solution [Injectafer] Injectafer 750 MG/15ML Injectafer 750 MG/15ML 11/14/2020 12:00:00 AM EDT active Injectafer 750 MG/15ML eCW1 ([facility]) ferric carboxymaltose 50 MG/ML Injectabl e Solution [Injectafer] Injectafer 750 MG/15ML Injectafer 750 MG/15ML 11/14/2020 12:00:00 AM EDT active Injectafer 750 MG/15ML eCW1 ([facility]) ferric carboxymaltose 50 MG/ML Injectabl e Solution [Injectafer] Injectafer 750 MG/15ML Injectafer 750 MG/15ML 11/14/2020 12:00:00 AM EDT active Injectafer 750 MG/15ML eCW1 ([facility]) ferric carboxymaltose 50 MG/ML Injectabl e Solution [Injectafer] Injectafer 750 MG/15ML Injectafer 750 MG/15ML 11/14/2020 12:00:00 AM EDT active Injectafer 750 MG/15ML eCW1 ([facility]) Mupirocin 0.02 MG/MG Topical Ointment Mupirocin 2 % Mupiroci n 2 % 11/14/2020 12:00:00 AM EDT active Mupiroci n 2 % eCW1 ([facility]) Mupirocin 0.02 MG/MG Topical Ointment Mupirocin 2 % Mupiroci n 2 % 11/14/2020 12:00:00 AM EDT active Mupiroci n 2 % eCW1 ([facility]) Mupirocin 0.02 MG/MG Topical Ointment Mupirocin 2 % Mupiroci n 2 % 11/14/2020 12:00:00 AM EDT active Mupiroci n 2 % eCW1 ([facility]) magnesium citrate 58.2 MG/ML Oral Solution Magnesium Citrate 11/11/2020 12:00:00 AM EDT active MEDENT ([facility], ) POLYETHYLENE GLYCOL 3350 142 MG/ML Oral Solution [Miralax] M iralax 11/11/2020 12:00:00 AM EDT active M EDENT ([facility], ) Blood Glucose Test - Blood Glucose Test - 11/03/2020 12:00:00 AM EDT active Blood Glucose Test - eCW1 ([facility]) Blood Glucose Test - Blood Glucose Test - 11/03/2020 12:00:00 AM EDT active Blood Glucose Test - eCW1 ([facility]) Blood Glucose Test - Blood Glucose Test - 11/03/2020 12:00:00 AM EDT active Blood Glucose Test - eCW1 ([facility]) Glucometer UNK 11/03/2020 12:00:00 AM EDT active Glucometer eCW1 ([facility]) Lancets - Lancets - 11/03/2020 12:00:00 AM EDT act андрей Lancets - eCW1 ([facility]) Glucometer UNK 11/03/2020 12:00:00 AM EDT active Glucometer eCW1 ([facility]) Glucometer UNK 11/03/2020 12:00:00 AM EDT active Glucometer eCW1 ([facility]) Blood Glucose Test - Blood Glucose Test - 11/03/2020 12:00:00 AM EDT active Blood Glucose Test - eCW1 ([facility]) Glucometer UNK 11/03/2020 12:00:00 AM EDT active Glucometer eCW1 ([facility]) Lancets - Lancets - 11/03/2020 12:00:00 AM EDT act андрей Lancets - eCW1 ([facility]) Blood Glucose Test - Blood Glucose Test - 11/03/2020 12:00:00 AM EDT active Blood Glucose Test - eCW1 ([facility]) Lancets - Lancets - 11/03/2020 12:00:00 AM EDT act андрей Lancets - eCW1 ([facility]) Lancets - Lancets - 11/03/2020 12:00:00 AM EDT act андрей Lancets - eCW1 ([facility]) Lancets - Lancets - 11/03/2020 12:00:00 AM EDT act андрей Lancets - eCW1 ([facility]) Glucometer UNK 11/03/2020 12:00:00 AM EDT active Glucometer eCW1 ([facility]) Blood Glucose Test - Blood Glucose Test - 11/03/2020 12:00:00 AM EDT active Blood Glucose Test - eCW1 ([facility]) Glucometer UNK 11/03/2020 12:00:00 AM EDT active Glucometer eCW1 ([facility]) Blood Glucose Test - Blood Glucose Test - 11/03/2020 12:00:00 AM EDT active Blood Glucose Test - eCW1 ([facility]) Glucometer UNK 11/03/2020 12:00:00 AM EDT active Glucometer eCW1 ([facility]) Blood Glucose Test - Blood Glucose Test - 11/03/2020 12:00:00 AM EDT active Blood Glucose Test - eCW1 ([facility]) Lancets - Lancets - 11/03/2020 12:00:00 AM EDT act андрей Lancets - eCW1 ([facility]) Lancets - Lancets - 11/03/2020 12:00:00 AM EDT act андрей Lancets - eCW1 ([facility]) Blood Glucose Test - Blood Glucose Test - 11/03/2020 12:00:00 AM EDT active Blood Glucose Test - eCW1 ([facility]) Lancets - Lancets - 11/03/2020 12:00:00 AM EDT act андрей Lancets - eCW1 ([facility]) Glucometer UNK 11/03/2020 12:00:00 AM EDT active Glucometer eCW1 ([facility]) Glucometer UNK 11/03/2020 12:00:00 AM EDT active Glucometer eCW1 ([facility]) Blood Glucose Test - Blood Glucose Test - 11/03/2020 12:00:00 AM EDT active Blood Glucose Test - eCW1 ([facility]) Lancets - Lancets - 11/03/2020 12:00:00 AM EDT act андрей Lancets - eCW1 ([facility]) Lancets - Lancets - 11/03/2020 12:00:00 AM EDT act андрей Lancets - eCW1 ([facility]) Glucometer UNK 11/03/2020 12:00:00 AM EDT active Glucometer eCW1 ([facility]) Lancets - Lancets - 11/03/2020 12:00:00 AM EDT act андрей Lancets - eCW1 ([facility]) Lancets - Lancets - 11/03/2020 12:00:00 AM EDT act андрей Lancets - eCW1 ([facility]) Glucometer UNK 11/03/2020 12:00:00 AM EDT active Glucometer eCW1 ([facility]) Blood Glucose Test - Blood Glucose Test - 11/03/2020 12:00:00 AM EDT active Blood Glucose Test - eCW1 ([facility]) Blood Glucose Test - Blood Glucose Test - 11/03/2020 12:00:00 AM EDT active Blood Glucose Test - eCW1 ([facility]) Glucometer UNK 11/03/2020 12:00:00 AM EDT active Glucometer eCW1 ([facility]) Lancets - Lancets - 11/03/2020 12:00:00 AM EDT act андрей Lancets - eCW1 ([facility]) Blood Glucose Test - Blood Glucose Test - 11/03/2020 12:00:00 AM EDT active Blood Glucose Test - eCW1 ([facility]) Glucometer UNK 11/03/2020 12:00:00 AM EDT active Glucometer eCW1 ([facility]) Lancets - Lancets - 11/03/2020 12:00:00 AM EDT act андрей Lancets - eCW1 ([facility]) Blood Glucose Test - Blood Glucose Test - 11/03/2020 12:00:00 AM EDT active Blood Glucose Test - eCW1 ([facility]) Lancets - Lancets - 11/03/2020 12:00:00 AM EDT act андрей Lancets - eCW1 ([facility]) Blood Glucose Test - Blood Glucose Test - 11/03/2020 12:00:00 AM EDT active Blood Glucose Test - eCW1 ([facility]) Glucometer UNK 11/03/2020 12:00:00 AM EDT active Glucometer eCW1 ([facility]) Glucometer UNK 11/03/2020 12:00:00 AM EDT active Glucometer eCW1 ([facility]) POLYETHYLENE GLYCOL 3350 142 MG/ML Oral Solution [Miralax] M iralax 10/15/2020 12:00:00 AM EDT ORAL active M EDENT ([facility], ) Alprazolam 1 MG Oral Tablet Alprazolam 08/11/2020 12:00:00 AM EDT ORAL active MED[facility] ([facility]) Fluconazole 150 MG Oral Tablet [Diflucan] Diflucan 08/11/2020 1 2:00:00 AM EDT ORAL active MED[facility] ([facility]) Botox 50 Units For Waste For 200 Units JW Modifier 07/23/2020 12:00:00 AM EDT completed MED[facility] ([facility]) Medication administered onsite Botox 200 Units- I Vial 07/23/2020 12:00:00 AM EDT completed MEDENT ([facility]) Medication administered onsite cefdinir 300 MG Oral Capsule Cefdinir 07/16/2020 12:00:00 AM EDT ORAL completed MEDENT ([facility]) 60 ACTUAT Fluticasone propionate 0.25 MG /ACTUAT / salmeterol 0.05 MG/ACTUAT Dry Powder Inhaler [Advair] Advair Diskus 250-50 MCG/DOSE Advair Diskus 250-50 MCG/DOSE 07/07/2020 12:00:00 AM EDT 1.0 {puff} activ e Advair Diskus 250-50 MCG/DOSE eCW1 ([facility]) 60 ACTUAT Fluticasone propionate 0.25 MG /ACTUAT / salmeterol 0.05 MG/ACTUAT Dry Powder Inhaler [Advair] Advair Diskus 250-50 MCG/DOSE Advair Diskus 250-50 MCG/DOSE 07/07/2020 12:00:00 AM EDT 1.0 {puff} activ e Advair Diskus 250-50 MCG/DOSE eCW1 ([facility]) 60 ACTUAT Fluticasone propionate 0.25 MG /ACTUAT / salmeterol 0.05 MG/ACTUAT Dry Powder Inhaler [Advair] Advair Diskus 250-50 MCG/DOSE Advair Diskus 250-50 MCG/DOSE 07/07/2020 12:00:00 AM EDT 1.0 {puff} activ e Advair Diskus 250-50 MCG/DOSE eCW1 ([facility]) 60 ACTUAT Fluticasone propionate 0.25 MG /ACTUAT / salmeterol 0.05 MG/ACTUAT Dry Powder Inhaler [Advair] Advair Diskus 250-50 MCG/DOSE Advair Diskus 250-50 MCG/DOSE 07/07/2020 12:00:00 AM EDT 1.0 {puff} activ e Advair Diskus 250-50 MCG/DOSE eCW1 ([facility]) 60 ACTUAT Fluticasone propionate 0.25 MG /ACTUAT / salmeterol 0.05 MG/ACTUAT Dry Powder Inhaler [Advair] Advair Diskus 250-50 MCG/DOSE Advair Diskus 250-50 MCG/DOSE 07/07/2020 12:00:00 AM EDT 1.0 {puff} activ e Advair Diskus 250-50 MCG/DOSE eCW1 ([facility]) 60 ACTUAT Fluticasone propionate 0.25 MG /ACTUAT / salmeterol 0.05 MG/ACTUAT Dry Powder Inhaler [Advair] Advair Diskus 250-50 MCG/DOSE Advair Diskus 250-50 MCG/DOSE 07/07/2020 12:00:00 AM EDT 1.0 {puff} activ e Advair Diskus 250-50 MCG/DOSE eCW1 ([facility]) 60 ACTUAT Fluticasone propionate 0.25 MG /ACTUAT / salmeterol 0.05 MG/ACTUAT Dry Powder Inhaler [Advair] Advair Diskus 250-50 MCG/DOSE Advair Diskus 250-50 MCG/DOSE 07/07/2020 12:00:00 AM EDT 1.0 {puff} activ e Advair Diskus 250-50 MCG/DOSE eCW1 ([facility]) 60 ACTUAT Fluticasone propionate 0.25 MG /ACTUAT / salmeterol 0.05 MG/ACTUAT Dry Powder Inhaler [Advair] Advair Diskus 250-50 MCG/DOSE Advair Diskus 250-50 MCG/DOSE 07/07/2020 12:00:00 AM EDT 1.0 {puff} activ e Advair Diskus 250-50 MCG/DOSE eCW1 ([facility]) 60 ACTUAT Fluticasone propionate 0.25 MG /ACTUAT / salmeterol 0.05 MG/ACTUAT Dry Powder Inhaler [Advair] Advair Diskus 250-50 MCG/DOSE Advair Diskus 250-50 MCG/DOSE 07/07/2020 12:00:00 AM EDT 1.0 {puff} activ e Advair Diskus 250-50 MCG/DOSE eCW1 ([facility]) 60 ACTUAT Fluticasone propionate 0.25 MG /ACTUAT / salmeterol 0.05 MG/ACTUAT Dry Powder Inhaler [Advair] Advair Diskus 250-50 MCG/DOSE Advair Diskus 250-50 MCG/DOSE 07/07/2020 12:00:00 AM EDT 1.0 {puff} activ e Advair Diskus 250-50 MCG/DOSE eCW1 ([facility]) 60 ACTUAT Fluticasone propionate 0.25 MG /ACTUAT / salmeterol 0.05 MG/ACTUAT Dry Powder Inhaler [Advair] Advair Diskus 250-50 MCG/DOSE Advair Diskus 250-50 MCG/DOSE 07/07/2020 12:00:00 AM EDT 1.0 {puff} activ e Advair Diskus 250-50 MCG/DOSE eCW1 ([facility]) 60 ACTUAT Fluticasone propionate 0.25 MG /ACTUAT / salmeterol 0.05 MG/ACTUAT Dry Powder Inhaler [Advair] Advair Diskus 250-50 MCG/DOSE Advair Diskus 250-50 MCG/DOSE 07/07/2020 12:00:00 AM EDT 1.0 {puff} activ e Advair Diskus 250-50 MCG/DOSE eCW1 ([facility]) 60 ACTUAT Fluticasone propionate 0.25 MG /ACTUAT / salmeterol 0.05 MG/ACTUAT Dry Powder Inhaler [Advair] Advair Diskus 250-50 MCG/DOSE Advair Diskus 250-50 MCG/DOSE 07/07/2020 12:00:00 AM EDT 1.0 {puff} activ e Advair Diskus 250-50 MCG/DOSE eCW1 ([facility]) Alprazolam 1 MG Oral Tablet Alprazolam 05/29/2020 12:00:00 AM EDT ORAL completed [facility] ([facility] POLYETHYLENE GLYCOL 3350 142 MG/ML Oral Solution [Dawn lax] MiraLax 17 GM/SCOOP MiraLax 17 GM/SCOOP 05/26/2020 12:00:00 AM EDT active MiraLax 17 GM/SCOOP eCW1 ([facility]) POLYETHYLENE GLYCOL 3350 142 MG/ML Oral Solution [Dawn lax] MiraLax 17 GM/SCOOP MiraLax 17 GM/SCOOP 05/26/2020 12:00:00 AM EDT active MiraLax 17 GM/SCOOP eCW1 ([facility]) POLYETHYLENE GLYCOL 3350 142 MG/ML Oral Solution [Dawn lax] MiraLax 17 GM/SCOOP MiraLax 17 GM/SCOOP 05/26/2020 12:00:00 AM EDT active MiraLax 17 GM/SCOOP eCW1 ([facility]) POLYETHYLENE GLYCOL 3350 142 MG/ML Oral Solution [Dawn lax] MiraLax 17 GM/SCOOP MiraLax 17 GM/SCOOP 05/26/2020 12:00:00 AM EDT active MiraLax 17 GM/SCOOP eCW1 ([facility]) POLYETHYLENE GLYCOL 3350 142 MG/ML Oral Solution [Dawn lax] MiraLax 17 GM/SCOOP MiraLax 17 GM/SCOOP 05/26/2020 12:00:00 AM EDT active MiraLax 17 GM/SCOOP eCW1 ([facility]) POLYETHYLENE GLYCOL 3350 142 MG/ML Oral Solution [Dawn lax] MiraLax 17 GM/SCOOP MiraLax 17 GM/SCOOP 05/26/2020 12:00:00 AM EDT active MiraLax 17 GM/SCOOP eCW1 ([facility]) POLYETHYLENE GLYCOL 3350 142 MG/ML Oral Solution [Dawn lax] MiraLax 17 GM/SCOOP MiraLax 17 GM/SCOOP 05/26/2020 12:00:00 AM EDT active MiraLax 17 GM/SCOOP eCW1 ([facility]) POLYETHYLENE GLYCOL 3350 142 MG/ML Oral Solution [Dawn lax] MiraLax 17 GM/SCOOP MiraLax 17 GM/SCOOP 05/26/2020 12:00:00 AM EDT active MiraLax 17 GM/SCOOP eCW1 ([facility]) POLYETHYLENE GLYCOL 3350 142 MG/ML Oral Solution [Dawn lax] MiraLax 17 GM/SCOOP MiraLax 17 GM/SCOOP 05/26/2020 12:00:00 AM EDT active MiraLax 17 GM/SCOOP eCW1 ([facility]) POLYETHYLENE GLYCOL 3350 142 MG/ML Oral Solution [Dawn lax] MiraLax 17 GM/SCOOP MiraLax 17 GM/SCOOP 05/26/2020 12:00:00 AM EDT active MiraLax 17 GM/SCOOP eCW1 ([facility]) POLYETHYLENE GLYCOL 3350 142 MG/ML Oral Solution [Dawn lax] MiraLax 17 GM/SCOOP MiraLax 17 GM/SCOOP 05/26/2020 12:00:00 AM EDT active MiraLax 17 GM/SCOOP eCW1 ([facility]) 60 ACTUAT Albuterol 0.09 MG/ACTUAT Metered Dose Inhaler Albu terol Sulfate HFA 04/25/2020 12:00:00 AM EST RESPIRATORY active MEDENT ([facility], ) NITROFURANTOIN, MACROCRYSTALS 50 MG Oral Capsule [Macrodanti n] Macrodantin 04/09/2020 12:00:00 AM EST ORAL completed MEDENT ([facility]) Ciprofloxacin 500 MG Oral Tablet Ciprofloxacin HCL 04/09/2020 12:00 :00 AM EST ORAL completed [facility] ([facility]) Cyclobenzaprine hydrochloride 10 MG Oral Tablet Cyclob enzaprine HCl 10 MG Cyclobenzaprine HCl 10 MG 02/07/2020 12:00:00 AM EST active Cyclobenzaprine HCl 10 MG eCW1 ([facility]) Cyclobenzaprine hydrochloride 10 MG Oral Tablet Cyclob enzaprine HCl 10 MG Cyclobenzaprine HCl 10 MG 02/07/2020 12:00:00 AM EST active Cyclobenzaprine HCl 10 MG eCW1 ([facility]) Cyclobenzaprine hydrochloride 5 MG Oral Tablet Cyclobe nzaprine HCl 5 MG Cyclobenzaprine HCl 5 MG 02/07/2020 12:00:00 AM EST active Cyclobenzaprine HCl 5 MG eCW1 ([facility]) Cyclobenzaprine hydrochloride 10 MG Oral Tablet Cyclob enzaprine HCl 10 MG Cyclobenzaprine HCl 10 MG 02/07/2020 12:00:00 AM EST active Cyclobenzaprine HCl 10 MG eCW1 ([facility]) Metronidazole 500 MG Oral Tablet Metronidazole 01/14/2020 12:00:00 AM EST ORAL active [facility] ([facility]) Tamsulosin hydrochloride 0.4 MG Oral Capsule Tamsulosin HCL 01/10/2020 12:00:00 AM EST active [facility] ([facility]) NITROFURANTOIN, MACROCRYSTALS 25 MG / Ni trofurantoin, Monohydrate 75 MG Oral Capsule [Macrobid] Macrobid 01/10/2020 12:00:00 AM EST ORAL completed [facility] ([facility]) Ciprofloxacin 250 MG Oral Tablet Ciprofloxacin HCL 12/13/2019 12:00 :00 AM EDT ORAL completed [facility] ([facility]) Amitriptyline Hydrochloride 25 MG Oral Tablet Amitript yline HCl 25 MG Amitriptyline HCl 25 MG 12/06/2019 12:00:00 AM EDT active Amitriptyline HCl 25 MG eCW1 ([facility]) Amitriptyline Hydrochloride 25 MG Oral Tablet Amitript yline HCl 25 MG Amitriptyline HCl 25 MG 12/06/2019 12:00:00 AM EDT active Amitriptyline HCl 25 MG eCW1 ([facility]) Amitriptyline Hydrochloride 25 MG Oral Tablet Amitript yline HCl 25 MG Amitriptyline HCl 25 MG 12/06/2019 12:00:00 AM EDT active Amitriptyline HCl 25 MG eCW1 ([facility]) Amitriptyline Hydrochloride 25 MG Oral Tablet Amitript yline HCl 25 MG Amitriptyline HCl 25 MG 12/06/2019 12:00:00 AM EDT active Amitriptyline HCl 25 MG eCW1 ([facility]) Amitriptyline Hydrochloride 25 MG Oral Tablet Amitript yline HCl 25 MG Amitriptyline HCl 25 MG 12/06/2019 12:00:00 AM EDT active Amitriptyline HCl 25 MG eCW1 ([facility]) Amitriptyline Hydrochloride 25 MG Oral Tablet Amitript yline HCl 25 MG Amitriptyline HCl 25 MG 12/06/2019 12:00:00 AM EDT active Amitriptyline HCl 25 MG eCW1 ([facility]) Botox 200 Units- I Vial 11/27/2019 12:00:00 AM EDT completed [facility] ([facility]) Medication administered onsite Botox 50 Units For Waste For 200 Units JW Modifier 11/27/2019 12:00:00 AM EDT completed [facility] ([facility]) Medication administered onsite Ciprofloxacin 250 MG Oral Tablet Ciprofloxacin HCL 11/27/2019 12:00 :00 AM EDT ORAL completed [facility] ([facility]) Alprazolam 1 MG Oral Tablet Alprazolam 10/11/2019 12:00:00 AM EDT ORAL completed [facility] ([facility]) cefdinir 300 MG Oral Capsule cefdinir 300 mg capsule cefdinir 30 0 mg capsule completed cefdinir 300 M G Oral Capsule [facility] ([facility]) Methylprednisolone 4 MG Oral Tablet methylprednisolone 4 mg tablet 1 tab daily methylprednisolone 4 mg tablet 1 tab daily completed methylprednisolone 4 MG Oral Tablet [facility] ([facility]) Doxycycline Monohydrate 100 MG Oral Caps ule doxycycline monohydrate 100 mg capsule TAKE ONE CAPSULE BY MOUTH TWICE DAILY FOR SEVEN DAYS doxycycline monohydrate 100 mg capsule TAKE ONE CAPSULE BY MOUTH TWICE DAILY FOR SEVEN DAYS completed doxycycline mo nohydrate 100 MG Oral Capsule [facility] ([facility]) cefdinir 300 MG Oral Capsule cefdinir 300 mg capsule cefdinir 30 0 mg capsule completed cefdinir 300 M G Oral Capsule [facility] ([facility]) Amoxicillin 500 MG / Clavulanate 125 MG Oral Tablet amoxicillin 500 mg-potassium clavulanate 125 mg tablet TAKE ONE TABLET BY MOUTH EVERY TWELVE HOURS amoxicillin 500 mg-potassium clavulanate 125 mg tablet TAKE ONE TABLET BY MOUTH EVERY TWELVE HOURS completed amoxicillin 500 MG / clavulanate 125 MG Oral Tablet [facility] ([facility]) 0.3 ML Enoxaparin sodium 100 MG/ML Prefi lled Syringe enoxaparin 30 mg/0.3 mL subcutaneous syringe INJECT 0.3 MILLILITERS SUBCUTANEOUSLY EVERY 12 HOURS FOR TWO WEEKS enoxaparin 30 mg/0.3 mL subcutaneous syr travis INJECT 0.3 MILLILITERS SUBCUTANEOUSLY EVERY 12 HOURS FOR TWO WEEKS completed 0.3 ML enoxaparin sodium 100 MG/ML Prefilled Syringe [facility] ([facility]) Methylprednisolone 4 MG Oral Tablet methylprednisolone 4 mg tablet 1 tab daily methylprednisolone 4 mg tablet 1 tab daily completed methylprednisolone 4 MG Oral Tablet [facility] ([facility]) tramadol hydrochloride 50 MG Oral Tablet tramadol 50 mg tablet TAKE ONE TABLET BY MOUTH EVERY 6 HOURS NEEDED FOR PAIN MAX DAILY DOSE FOUR TABLETS tramadol 50 mg tablet TAKE ONE TABLET BY MOUTH EVERY 6 HOURS NEEDED FOR PAIN MAX DAILY DOSE FOUR TABLETS completed tramadol hydrochloride 50 MG Oral Tablet [facility] ([facility]) Oxycodone Hydrochloride 5 MG Oral Tablet oxycodone 5 mg tablet TAKE 1 TO 2 TABLETS BY MOUTH EVERY FOUR HOURS NEEDED FOR PAIN MAX DAILY DOSE 12 CAPSULES oxycodone 5 mg tablet TAKE 1 TO 2 TABLETS BY MOUTH EVERY FOUR HOURS NEEDED FOR PAIN MAX DAILY DOSE 12 CAPSULES co mpleted oxycodone hydrochloride 5 MG Oral Tablet [facility] ([facility]) Prednisone 20 MG Oral Tablet prednisone 20 mg tablet TAKE ONE TABLET BY MOUTH ONCE DAILY FOR FIVE DAYS prednisone 20 mg tablet TAKE ONE TABLET BY MOUTH ONCE DAILY FOR FIVE DAYS completed pr ednisone 20 MG Oral Tablet [facility] ([facility]) glimepiride 1 MG Oral Tablet glimepiride 1 mg tablet glimepiride 1 mg tablet completed glimepiride 1 MG Oral Tablet [facility] ([facility]) Alprazolam 1 MG Oral Tablet alprazolam 1 mg tablet alprazolam 1 mg ta blet completed alprazolam 1 MG Oral Tablet [facility] ([facility]) Alprazolam 1 MG Oral Tablet alprazolam 1 mg tablet alprazolam 1 mg ta blet completed alprazolam 1 MG Oral Tablet [facility] ([facility]) 0.3 ML Enoxaparin sodium 100 MG/ML Prefi lled Syringe enoxaparin 30 mg/0.3 mL subcutaneous syringe INJECT 0.3 MILLILITERS SUBCUTANEOUSLY EVERY 12 HOURS FOR TWO WEEKS enoxaparin 30 mg/0.3 mL subcutaneous syr travis INJECT 0.3 MILLILITERS SUBCUTANEOUSLY EVERY 12 HOURS FOR TWO WEEKS completed 0.3 ML enoxaparin sodium 100 MG/ML Prefilled Syringe [facility] ([facility]) Methylprednisolone 2 MG Oral Tablet [Med rol] Medrol 2 mg tablet 1 tablet every other day Medrol 2 mg tablet 1 tablet every other day completed methylprednisolone 2 MG Oral Tablet [Medrol] [facility] ([facility]) Doxycycline Monohydrate 100 MG Oral Caps ule doxycycline monohydrate 100 mg capsule TAKE ONE CAPSULE BY MOUTH TWICE DAILY FOR SEVEN DAYS doxycycline monohydrate 100 mg capsule TAKE ONE CAPSULE BY MOUTH TWICE DAILY FOR SEVEN DAYS completed doxycycline mo nohydrate 100 MG Oral Capsule [facility] ([facility]) Prednisone 20 MG Oral Tablet prednisone 20 mg tablet TAKE ONE TABLET BY MOUTH ONCE DAILY FOR FIVE DAYS prednisone 20 mg tablet TAKE ONE TABLET BY MOUTH ONCE DAILY FOR FIVE DAYS completed pr ednisone 20 MG Oral Tablet [facility] ([facility]) Amoxicillin 500 MG / Clavulanate 125 MG Oral Tablet amoxicillin 500 mg-potassium clavulanate 125 mg tablet TAKE ONE TABLET BY MOUTH EVERY TWELVE HOURS amoxicillin 500 mg-potassium clavulanate 125 mg tablet TAKE ONE TABLET BY MOUTH EVERY TWELVE HOURS completed amoxicillin 500 MG / clavulanate 125 MG Oral Tablet [facility] ([facility]) Alprazolam 1 MG Oral Tablet alprazolam 1 mg tablet alprazolam 1 mg ta blet completed alprazolam 1 MG Oral Tablet [facility] ([facility]) 0.3 ML Enoxaparin sodium 100 MG/ML Prefi lled Syringe enoxaparin 30 mg/0.3 mL subcutaneous syringe INJECT 0.3 MILLILITERS SUBCUTANEOUSLY EVERY 12 HOURS FOR TWO WEEKS enoxaparin 30 mg/0.3 mL subcutaneous syr travis INJECT 0.3 MILLILITERS SUBCUTANEOUSLY EVERY 12 HOURS FOR TWO WEEKS completed 0.3 ML enoxaparin sodium 100 MG/ML Prefilled Syringe [facility] ([facility]) Prednisone 20 MG Oral Tablet prednisone 20 mg tablet TAKE ONE TABLET BY MOUTH ONCE DAILY FOR FIVE DAYS prednisone 20 mg tablet TAKE ONE TABLET BY MOUTH ONCE DAILY FOR FIVE DAYS completed pr ednisone 20 MG Oral Tablet [facility] ([facility]) 0.3 ML Enoxaparin sodium 100 MG/ML Prefi lled Syringe enoxaparin 30 mg/0.3 mL subcutaneous syringe INJECT 0.3 MILLILITERS SUBCUTANEOUSLY EVERY 12 HOURS FOR TWO WEEKS enoxaparin 30 mg/0.3 mL subcutaneous syr travis INJECT 0.3 MILLILITERS SUBCUTANEOUSLY EVERY 12 HOURS FOR TWO WEEKS completed 0.3 ML enoxaparin sodium 100 MG/ML Prefilled Syringe [facility] ([facility]) 0.3 ML Enoxaparin sodium 100 MG/ML Prefi lled Syringe enoxaparin 30 mg/0.3 mL subcutaneous syringe INJECT 0.3 MILLILITERS SUBCUTANEOUSLY EVERY 12 HOURS FOR TWO WEEKS enoxaparin 30 mg/0.3 mL subcutaneous syr travis INJECT 0.3 MILLILITERS SUBCUTANEOUSLY EVERY 12 HOURS FOR TWO WEEKS completed 0.3 ML enoxaparin sodium 100 MG/ML Prefilled Syringe [facility] ([facility]) Amoxicillin 500 MG / Clavulanate 125 MG Oral Tablet amoxicillin 500 mg-potassium clavulanate 125 mg tablet TAKE ONE TABLET BY MOUTH EVERY TWELVE HOURS amoxicillin 500 mg-potassium clavulanate 125 mg tablet TAKE ONE TABLET BY MOUTH EVERY TWELVE HOURS completed amoxicillin 500 MG / clavulanate 125 MG Oral Tablet [facility] ([facility]) Doxycycline Monohydrate 100 MG Oral Caps ule doxycycline monohydrate 100 mg capsule TAKE ONE CAPSULE BY MOUTH TWICE DAILY FOR SEVEN DAYS doxycycline monohydrate 100 mg capsule TAKE ONE CAPSULE BY MOUTH TWICE DAILY FOR SEVEN DAYS completed doxycycline mo nohydrate 100 MG Oral Capsule [facility] ([facility]) Acetaminophen 325 MG / Oxycodone Hydroch loride 5 MG Oral Tablet oxycodone- acetaminophen 5 mg-325 mg tablet oxycodone-acetaminophen 5 mg-325 mg tablet completed acetaminop hen 325 MG / oxycodone hydrochloride 5 MG Oral Tablet [facility] ([facility]) glimepiride 1 MG Oral Tablet glimepiride 1 mg tablet glimepiride 1 mg tablet completed glimepiride 1 MG Oral Tablet [facility] ([facility]) Estradiol 0.1 MG/ML Vaginal Cream estradiol 0.01% (0.1 mg/gram) vaginal cream estradiol 0.01% (0.1 mg/gram) vaginal cream completed estradiol 0.1 MG/ML Vaginal Cream [facility] ([facility]) Prednisone 20 MG Oral Tablet prednisone 20 mg tablet TAKE ONE TABLET BY MOUTH ONCE DAILY FOR FIVE DAYS prednisone 20 mg tablet TAKE ONE TABLET BY MOUTH ONCE DAILY FOR FIVE DAYS completed pr ednisone 20 MG Oral Tablet [facility] ([facility]) glimepiride 2 MG Oral Tablet glimepiride 2 mg tablet TAKE ONE TABLET BY MOUTH @8AM and TAKE ONE TABLET @8PM glimepiride 2 mg tablet TAKE ONE TABLET BY MOUTH @8AM and TAKE ONE TABLET @8PM complete d glimepiride 2 MG Oral Tablet [facility] ([facility]) Cyclobenzaprine hydrochloride 5 MG Oral Tablet cyclobenzaprine 5 mg tablet TAKE ONE TABLET BY MOUTH @8AM and TAKE ONE TABLET @12PM and TAKE ONE TABLET @8PM cyclobenzaprine 5 mg tablet TAKE ONE TABLET BY MOUTH @8AM and TAKE ONE TABLET @12PM and TAKE ONE TABLET @8PM complet ed cyclobenzaprine hydrochloride 5 MG Oral Tablet [facility] ([facility]) Acetaminophen 325 MG / Oxycodone Hydroch loride 5 MG Oral Tablet oxycodone- acetaminophen 5 mg-325 mg tablet oxycodone-acetaminophen 5 mg-325 mg tablet completed acetaminop hen 325 MG / oxycodone hydrochloride 5 MG Oral Tablet [facility] ([facility]) tramadol hydrochloride 50 MG Oral Tablet tramadol 50 mg tablet TAKE ONE TABLET BY MOUTH EVERY 6 HOURS NEEDED FOR PAIN MAX DAILY DOSE FOUR TABLETS tramadol 50 mg tablet TAKE ONE TABLET BY MOUTH EVERY 6 HOURS NEEDED FOR PAIN MAX DAILY DOSE FOUR TABLETS completed tramadol hydrochloride 50 MG Oral Tablet [facility] ([facility]) Estradiol 0.1 MG/ML Vaginal Cream estradiol 0.01% (0.1 mg/gram) vaginal cream estradiol 0.01% (0.1 mg/gram) vaginal cream completed estradiol 0.1 MG/ML Vaginal Cream [facility] ([facility]) Estradiol 0.1 MG/ML Vaginal Cream estradiol 0.01% (0.1 mg/gram) vaginal cream estradiol 0.01% (0.1 mg/gram) vaginal cream completed estradiol 0.1 MG/ML Vaginal Cream [facility] ([facility]) Prednisone 20 MG Oral Tablet prednisone 20 mg tablet TAKE ONE TABLET BY MOUTH ONCE DAILY FOR FIVE DAYS prednisone 20 mg tablet TAKE ONE TABLET BY MOUTH ONCE DAILY FOR FIVE DAYS completed pr ednisone 20 MG Oral Tablet [facility] ([facility]) Doxycycline Monohydrate 100 MG Oral Caps ule doxycycline monohydrate 100 mg capsule TAKE ONE CAPSULE BY MOUTH TWICE DAILY FOR SEVEN DAYS doxycycline monohydrate 100 mg capsule TAKE ONE CAPSULE BY MOUTH TWICE DAILY FOR SEVEN DAYS completed doxycycline mo nohydrate 100 MG Oral Capsule [facility] ([facility]) Methylprednisolone 4 MG Oral Tablet methylprednisolone 4 mg tablet 1 tab daily methylprednisolone 4 mg tablet 1 tab daily completed methylprednisolone 4 MG Oral Tablet [facility] ([facility]) Ciprofloxacin 250 MG Oral Tablet ciprofl oxacin 250 mg tablet TAKE ONE TABLET BY MOUTH TWICE DAILY FOR 3 DAYS ciprofloxacin 250 mg tablet TAKE ONE TAB LET BY MOUTH TWICE DAILY FOR 3 DAYS completed ciprofloxacin 250 MG Oral Tablet [facility] ([facility]) Methylprednisolone 2 MG Oral Tablet [Med rol] Medrol 2 mg tablet 1 tablet every other day Medrol 2 mg tablet 1 tablet every other day completed methylprednisolone 2 MG Oral Tablet [Medrol] [facility] ([facility]) Amoxicillin 500 MG / Clavulanate 125 MG Oral Tablet amoxicillin 500 mg-potassium clavulanate 125 mg tablet TAKE ONE TABLET BY MOUTH EVERY TWELVE HOURS amoxicillin 500 mg-potassium clavulanate 125 mg tablet TAKE ONE TABLET BY MOUTH EVERY TWELVE HOURS completed amoxicillin 500 MG / clavulanate 125 MG Oral Tablet [facility] ([facility]) cefdinir 300 MG Oral Capsule cefdinir 300 mg capsule cefdinir 30 0 mg capsule completed cefdinir 300 M G Oral Capsule [facility] ([facility]) Doxycycline Monohydrate 100 MG Oral Caps ule doxycycline monohydrate 100 mg capsule TAKE ONE CAPSULE BY MOUTH TWICE DAILY FOR SEVEN DAYS doxycycline monohydrate 100 mg capsule TAKE ONE CAPSULE BY MOUTH TWICE DAILY FOR SEVEN DAYS completed doxycycline mo nohydrate 100 MG Oral Capsule [facility] ([facility]) Prednisone 20 MG Oral Tablet prednisone 20 mg tablet TAKE ONE TABLET BY MOUTH ONCE DAILY FOR FIVE DAYS prednisone 20 mg tablet TAKE ONE TABLET BY MOUTH ONCE DAILY FOR FIVE DAYS completed pr ednisone 20 MG Oral Tablet [facility] ([facility]) Estradiol 0.1 MG/ML Vaginal Cream estradiol 0.01% (0.1 mg/gram) vaginal cream estradiol 0.01% (0.1 mg/gram) vaginal cream completed estradiol 0.1 MG/ML Vaginal Cream [facility] ([facility]) Amoxicillin 500 MG / Clavulanate 125 MG Oral Tablet amoxicillin 500 mg-potassium clavulanate 125 mg tablet TAKE ONE TABLET BY MOUTH EVERY TWELVE HOURS amoxicillin 500 mg-potassium clavulanate 125 mg tablet TAKE ONE TABLET BY MOUTH EVERY TWELVE HOURS completed amoxicillin 500 MG / clavulanate 125 MG Oral Tablet [facility] ([facility]) 0.3 ML Enoxaparin sodium 100 MG/ML Prefi lled Syringe enoxaparin 30 mg/0.3 mL subcutaneous syringe INJECT 0.3 MILLILITERS SUBCUTANEOUSLY EVERY 12 HOURS FOR TWO WEEKS enoxaparin 30 mg/0.3 mL subcutaneous syr travis INJECT 0.3 MILLILITERS SUBCUTANEOUSLY EVERY 12 HOURS FOR TWO WEEKS completed 0.3 ML enoxaparin sodium 100 MG/ML Prefilled Syringe [facility] ([facility]) Doxycycline Monohydrate 100 MG Oral Caps ule doxycycline monohydrate 100 mg capsule TAKE ONE CAPSULE BY MOUTH TWICE DAILY FOR SEVEN DAYS doxycycline monohydrate 100 mg capsule TAKE ONE CAPSULE BY MOUTH TWICE DAILY FOR SEVEN DAYS completed doxycycline mo nohydrate 100 MG Oral Capsule [facility] ([facility]) Methylprednisolone 4 MG Oral Tablet methylprednisolone 4 mg tablet 1 tab daily methylprednisolone 4 mg tablet 1 tab daily completed methylprednisolone 4 MG Oral Tablet [facility] ([facility]) glimepiride 2 MG Oral Tablet glimepiride 2 mg tablet TAKE ONE TABLET BY MOUTH @8AM and TAKE ONE TABLET @8PM glimepiride 2 mg tablet TAKE ONE TABLET BY MOUTH @8AM and TAKE ONE TABLET @8PM complete d glimepiride 2 MG Oral Tablet [facility] ([facility]) Ciprofloxacin 250 MG Oral Tablet ciprofl oxacin 250 mg tablet TAKE ONE TABLET BY MOUTH TWICE DAILY FOR 3 DAYS ciprofloxacin 250 mg tablet TAKE ONE TAB LET BY MOUTH TWICE DAILY FOR 3 DAYS completed ciprofloxacin 250 MG Oral Tablet [facility] ([facility]) Acetaminophen 325 MG / Oxycodone Hydroch loride 5 MG Oral Tablet oxycodone- acetaminophen 5 mg-325 mg tablet oxycodone-acetaminophen 5 mg-325 mg tablet completed acetaminop hen 325 MG / oxycodone hydrochloride 5 MG Oral Tablet [facility] ([facility]) glimepiride 1 MG Oral Tablet glimepiride 1 mg tablet glimepiride 1 mg tablet completed glimepiride 1 MG Oral Tablet [facility] ([facility]) tramadol hydrochloride 50 MG Oral Tablet tramadol 50 mg tablet TAKE ONE TABLET BY MOUTH EVERY 6 HOURS NEEDED FOR PAIN MAX DAILY DOSE FOUR TABLETS tramadol 50 mg tablet TAKE ONE TABLET BY MOUTH EVERY 6 HOURS NEEDED FOR PAIN MAX DAILY DOSE FOUR TABLETS completed tramadol hydrochloride 50 MG Oral Tablet [facility] ([facility]) Oxycodone Hydrochloride 5 MG Oral Tablet oxycodone 5 mg tablet TAKE 1 TO 2 TABLETS BY MOUTH EVERY FOUR HOURS NEEDED FOR PAIN MAX DAILY DOSE 12 CAPSULES oxycodone 5 mg tablet TAKE 1 TO 2 TABLETS BY MOUTH EVERY FOUR HOURS NEEDED FOR PAIN MAX DAILY DOSE 12 CAPSULES co mpleted oxycodone hydrochloride 5 MG Oral Tablet [facility] ([facility]) Oxycodone Hydrochloride 5 MG Oral Tablet oxycodone 5 mg tablet TAKE 1 TO 2 TABLETS BY MOUTH EVERY FOUR HOURS NEEDED FOR PAIN MAX DAILY DOSE 12 CAPSULES oxycodone 5 mg tablet TAKE 1 TO 2 TABLETS BY MOUTH EVERY FOUR HOURS NEEDED FOR PAIN MAX DAILY DOSE 12 CAPSULES co mpleted oxycodone hydrochloride 5 MG Oral Tablet [facility] ([facility]) Methylprednisolone 2 MG Oral Tablet [Med rol] Medrol 2 mg tablet 1 tablet every other day Medrol 2 mg tablet 1 tablet every other day completed methylprednisolone 2 MG Oral Tablet [Medrol] [facility] ([facility]) tramadol hydrochloride 50 MG Oral Tablet tramadol 50 mg tablet TAKE ONE TABLET BY MOUTH EVERY 6 HOURS NEEDED FOR PAIN MAX DAILY DOSE FOUR TABLETS tramadol 50 mg tablet TAKE ONE TABLET BY MOUTH EVERY 6 HOURS NEEDED FOR PAIN MAX DAILY DOSE FOUR TABLETS completed tramadol hydrochloride 50 MG Oral Tablet [facility] ([facility]) Doxycycline Monohydrate 100 MG Oral Caps ule doxycycline monohydrate 100 mg capsule TAKE ONE CAPSULE BY MOUTH TWICE DAILY FOR SEVEN DAYS doxycycline monohydrate 100 mg capsule TAKE ONE CAPSULE BY MOUTH TWICE DAILY FOR SEVEN DAYS completed doxycycline mo nohydrate 100 MG Oral Capsule [facility] ([facility]) Methylprednisolone 2 MG Oral Tablet [Med rol] Medrol 2 mg tablet 1 tablet every other day Medrol 2 mg tablet 1 tablet every other day completed methylprednisolone 2 MG Oral Tablet [Medrol] [facility] ([facility]) Methylprednisolone 4 MG Oral Tablet methylprednisolone 4 mg tablet 1 tab daily methylprednisolone 4 mg tablet 1 tab daily completed methylprednisolone 4 MG Oral Tablet [facility] ([facility]) Acetaminophen 325 MG / Oxycodone Hydroch loride 5 MG Oral Tablet oxycodone- acetaminophen 5 mg-325 mg tablet oxycodone-acetaminophen 5 mg-325 mg tablet completed acetaminop hen 325 MG / oxycodone hydrochloride 5 MG Oral Tablet [facility] ([facility]) Methylprednisolone 2 MG Oral Tablet [Med rol] Medrol 2 mg tablet 1 tablet every other day Medrol 2 mg tablet 1 tablet every other day completed methylprednisolone 2 MG Oral Tablet [Medrol] [facility] ([facility]) tramadol hydrochloride 50 MG Oral Tablet tramadol 50 mg tablet TAKE ONE TABLET BY MOUTH EVERY 6 HOURS NEEDED FOR PAIN MAX DAILY DOSE FOUR TABLETS tramadol 50 mg tablet TAKE ONE TABLET BY MOUTH EVERY 6 HOURS NEEDED FOR PAIN MAX DAILY DOSE FOUR TABLETS completed tramadol hydrochloride 50 MG Oral Tablet [facility] ([facility]) Alprazolam 1 MG Oral Tablet alprazolam 1 mg tablet alprazolam 1 mg ta blet completed alprazolam 1 MG Oral Tablet [facility] ([facility]) Amoxicillin 500 MG / Clavulanate 125 MG Oral Tablet amoxicillin 500 mg-potassium clavulanate 125 mg tablet TAKE ONE TABLET BY MOUTH EVERY TWELVE HOURS amoxicillin 500 mg-potassium clavulanate 125 mg tablet TAKE ONE TABLET BY MOUTH EVERY TWELVE HOURS completed amoxicillin 500 MG / clavulanate 125 MG Oral Tablet [facility] ([facility]) Estradiol 0.1 MG/ML Vaginal Cream estradiol 0.01% (0.1 mg/gram) vaginal cream estradiol 0.01% (0.1 mg/gram) vaginal cream completed estradiol 0.1 MG/ML Vaginal Cream [facility] ([facility]) Prednisone 20 MG Oral Tablet prednisone 20 mg tablet TAKE ONE TABLET BY MOUTH ONCE DAILY FOR FIVE DAYS prednisone 20 mg tablet TAKE ONE TABLET BY MOUTH ONCE DAILY FOR FIVE DAYS completed pr ednisone 20 MG Oral Tablet [facility] ([facility]) Acetaminophen 325 MG / Oxycodone Hydroch loride 5 MG Oral Tablet oxycodone- acetaminophen 5 mg-325 mg tablet oxycodone-acetaminophen 5 mg-325 mg tablet completed acetaminop hen 325 MG / oxycodone hydrochloride 5 MG Oral Tablet [facility] ([facility]) 0.3 ML Enoxaparin sodium 100 MG/ML Prefi lled Syringe enoxaparin 30 mg/0.3 mL subcutaneous syringe INJECT 0.3 MILLILITERS SUBCUTANEOUSLY EVERY 12 HOURS FOR TWO WEEKS enoxaparin 30 mg/0.3 mL subcutaneous syr travis INJECT 0.3 MILLILITERS SUBCUTANEOUSLY EVERY 12 HOURS FOR TWO WEEKS completed 0.3 ML enoxaparin sodium 100 MG/ML Prefilled Syringe [facility] ([facility]) Amoxicillin 500 MG / Clavulanate 125 MG Oral Tablet amoxicillin 500 mg-potassium clavulanate 125 mg tablet TAKE ONE TABLET BY MOUTH EVERY TWELVE HOURS amoxicillin 500 mg-potassium clavulanate 125 mg tablet TAKE ONE TABLET BY MOUTH EVERY TWELVE HOURS completed amoxicillin 500 MG / clavulanate 125 MG Oral Tablet [facility] ([facility]) Methylprednisolone 2 MG Oral Tablet [Med rol] Medrol 2 mg tablet 1 tablet every other day Medrol 2 mg tablet 1 tablet every other day completed methylprednisolone 2 MG Oral Tablet [Medrol] [facility] ([facility]) Cyclobenzaprine hydrochloride 5 MG Oral Tablet cyclobenzaprine 5 mg tablet TAKE ONE TABLET BY MOUTH @8AM and TAKE ONE TABLET @12PM and TAKE ONE TABLET @8PM cyclobenzaprine 5 mg tablet TAKE ONE TABLET BY MOUTH @8AM and TAKE ONE TABLET @12PM and TAKE ONE TABLET @8PM complet ed cyclobenzaprine hydrochloride 5 MG Oral Tablet [facility] ([facility]) Acetaminophen 325 MG / Oxycodone Hydroch loride 5 MG Oral Tablet oxycodone- acetaminophen 5 mg-325 mg tablet oxycodone-acetaminophen 5 mg-325 mg tablet completed acetaminop hen 325 MG / oxycodone hydrochloride 5 MG Oral Tablet [facility] ([facility]) Ciprofloxacin 250 MG Oral Tablet ciprofl oxacin 250 mg tablet TAKE ONE TABLET BY MOUTH TWICE DAILY FOR 3 DAYS ciprofloxacin 250 mg tablet TAKE ONE TAB LET BY MOUTH TWICE DAILY FOR 3 DAYS completed ciprofloxacin 250 MG Oral Tablet [facility] ([facility]) Oxycodone Hydrochloride 5 MG Oral Tablet oxycodone 5 mg tablet TAKE 1 TO 2 TABLETS BY MOUTH EVERY FOUR HOURS NEEDED FOR PAIN MAX DAILY DOSE 12 CAPSULES oxycodone 5 mg tablet TAKE 1 TO 2 TABLETS BY MOUTH EVERY FOUR HOURS NEEDED FOR PAIN MAX DAILY DOSE 12 CAPSULES co mpleted oxycodone hydrochloride 5 MG Oral Tablet [facility] ([facility]) Ciprofloxacin 250 MG Oral Tablet ciprofl oxacin 250 mg tablet TAKE ONE TABLET BY MOUTH TWICE DAILY FOR 3 DAYS ciprofloxacin 250 mg tablet TAKE ONE TAB LET BY MOUTH TWICE DAILY FOR 3 DAYS completed ciprofloxacin 250 MG Oral Tablet [facility] ([facility]) tramadol hydrochloride 50 MG Oral Tablet tramadol 50 mg tablet TAKE ONE TABLET BY MOUTH EVERY 6 HOURS NEEDED FOR PAIN MAX DAILY DOSE FOUR TABLETS tramadol 50 mg tablet TAKE ONE TABLET BY MOUTH EVERY 6 HOURS NEEDED FOR PAIN MAX DAILY DOSE FOUR TABLETS completed tramadol hydrochloride 50 MG Oral Tablet [facility] ([facility]) Prednisone 20 MG Oral Tablet prednisone 20 mg tablet TAKE ONE TABLET BY MOUTH ONCE DAILY FOR FIVE DAYS prednisone 20 mg tablet TAKE ONE TABLET BY MOUTH ONCE DAILY FOR FIVE DAYS completed pr ednisone 20 MG Oral Tablet [facility] ([facility]) Methylprednisolone 4 MG Oral Tablet methylprednisolone 4 mg tablet 1 tab daily methylprednisolone 4 mg tablet 1 tab daily completed methylprednisolone 4 MG Oral Tablet [facility] ([facility]) cefdinir 300 MG Oral Capsule cefdinir 300 mg capsule cefdinir 30 0 mg capsule completed cefdinir 300 M G Oral Capsule [facility] ([facility]) Estradiol 0.1 MG/ML Vaginal Cream estradiol 0.01% (0.1 mg/gram) vaginal cream estradiol 0.01% (0.1 mg/gram) vaginal cream completed estradiol 0.1 MG/ML Vaginal Cream [facility] ([facility]) Methylprednisolone 4 MG Oral Tablet methylprednisolone 4 mg tablet 1 tab daily methylprednisolone 4 mg tablet 1 tab daily completed methylprednisolone 4 MG Oral Tablet [facility] ([facility]) tramadol hydrochloride 50 MG Oral Tablet tramadol 50 mg tablet TAKE ONE TABLET BY MOUTH EVERY 6 HOURS NEEDED FOR PAIN MAX DAILY DOSE FOUR TABLETS tramadol 50 mg tablet TAKE ONE TABLET BY MOUTH EVERY 6 HOURS NEEDED FOR PAIN MAX DAILY DOSE FOUR TABLETS completed tramadol hydrochloride 50 MG Oral Tablet [facility] ([facility]) glimepiride 2 MG Oral Tablet glimepiride 2 mg tablet TAKE ONE TABLET BY MOUTH @8AM and TAKE ONE TABLET @8PM glimepiride 2 mg tablet TAKE ONE TABLET BY MOUTH @8AM and TAKE ONE TABLET @8PM complete d glimepiride 2 MG Oral Tablet [facility] ([facility]) Doxycycline Monohydrate 100 MG Oral Caps ule doxycycline monohydrate 100 mg capsule TAKE ONE CAPSULE BY MOUTH TWICE DAILY FOR SEVEN DAYS doxycycline monohydrate 100 mg capsule TAKE ONE CAPSULE BY MOUTH TWICE DAILY FOR SEVEN DAYS completed doxycycline mo nohydrate 100 MG Oral Capsule [facility] ([facility]) Oxycodone Hydrochloride 5 MG Oral Tablet oxycodone 5 mg tablet TAKE 1 TO 2 TABLETS BY MOUTH EVERY FOUR HOURS NEEDED FOR PAIN MAX DAILY DOSE 12 CAPSULES oxycodone 5 mg tablet TAKE 1 TO 2 TABLETS BY MOUTH EVERY FOUR HOURS NEEDED FOR PAIN MAX DAILY DOSE 12 CAPSULES co mpleted oxycodone hydrochloride 5 MG Oral Tablet [facility] ([facility]) Oxycodone Hydrochloride 5 MG Oral Tablet oxycodone 5 mg tablet TAKE 1 TO 2 TABLETS BY MOUTH EVERY FOUR HOURS NEEDED FOR PAIN MAX DAILY DOSE 12 CAPSULES oxycodone 5 mg tablet TAKE 1 TO 2 TABLETS BY MOUTH EVERY FOUR HOURS NEEDED FOR PAIN MAX DAILY DOSE 12 CAPSULES co mpleted oxycodone hydrochloride 5 MG Oral Tablet [facility] ([facility]) Methylprednisolone 2 MG Oral Tablet [Med rol] Medrol 2 mg tablet 1 tablet every other day Medrol 2 mg tablet 1 tablet every other day completed methylprednisolone 2 MG Oral Tablet [Medrol] [facility] ([facility]) Oxycodone Hydrochloride 5 MG Oral Tablet oxycodone 5 mg tablet TAKE 1 TO 2 TABLETS BY MOUTH EVERY FOUR HOURS NEEDED FOR PAIN MAX DAILY DOSE 12 CAPSULES oxycodone 5 mg tablet TAKE 1 TO 2 TABLETS BY MOUTH EVERY FOUR HOURS NEEDED FOR PAIN MAX DAILY DOSE 12 CAPSULES co mpleted oxycodone hydrochloride 5 MG Oral Tablet [facility] ([facility]) Methylprednisolone 4 MG Oral Tablet methylprednisolone 4 mg tablet 1 tab daily methylprednisolone 4 mg tablet 1 tab daily completed methylprednisolone 4 MG Oral Tablet [facility] ([facility]) Doxycycline Monohydrate 100 MG Oral Caps ule doxycycline monohydrate 100 mg capsule TAKE ONE CAPSULE BY MOUTH TWICE DAILY FOR SEVEN DAYS doxycycline monohydrate 100 mg capsule TAKE ONE CAPSULE BY MOUTH TWICE DAILY FOR SEVEN DAYS completed doxycycline mo nohydrate 100 MG Oral Capsule [facility] ([facility]) glimepiride 1 MG Oral Tablet glimepiride 1 mg tablet glimepiride 1 mg tablet completed glimepiride 1 MG Oral Tablet [facility] ([facility]) Oxycodone Hydrochloride 5 MG Oral Tablet oxycodone 5 mg tablet TAKE 1 TO 2 TABLETS BY MOUTH EVERY FOUR HOURS NEEDED FOR PAIN MAX DAILY DOSE 12 CAPSULES oxycodone 5 mg tablet TAKE 1 TO 2 TABLETS BY MOUTH EVERY FOUR HOURS NEEDED FOR PAIN MAX DAILY DOSE 12 CAPSULES co mpleted oxycodone hydrochloride 5 MG Oral Tablet [facility] ([facility]) cefdinir 300 MG Oral Capsule cefdinir 300 mg capsule cefdinir 30 0 mg capsule completed cefdinir 300 M G Oral Capsule [facility] ([facility]) Prednisone 20 MG Oral Tablet prednisone 20 mg tablet TAKE ONE TABLET BY MOUTH ONCE DAILY FOR FIVE DAYS prednisone 20 mg tablet TAKE ONE TABLET BY MOUTH ONCE DAILY FOR FIVE DAYS completed pr ednisone 20 MG Oral Tablet [facility] ([facility]) Estradiol 0.1 MG/ML Vaginal Cream estradiol 0.01% (0.1 mg/gram) vaginal cream estradiol 0.01% (0.1 mg/gram) vaginal cream completed estradiol 0.1 MG/ML Vaginal Cream [facility] ([facility]) 0.3 ML Enoxaparin sodium 100 MG/ML Prefi lled Syringe enoxaparin 30 mg/0.3 mL subcutaneous syringe INJECT 0.3 MILLILITERS SUBCUTANEOUSLY EVERY 12 HOURS FOR TWO WEEKS enoxaparin 30 mg/0.3 mL subcutaneous syr travis INJECT 0.3 MILLILITERS SUBCUTANEOUSLY EVERY 12 HOURS FOR TWO WEEKS completed 0.3 ML enoxaparin sodium 100 MG/ML Prefilled Syringe MARILIA ([facility]) 0.3 ML Enoxaparin sodium 100 MG/ML Prefi lled Syringe enoxaparin 30 mg/0.3 mL subcutaneous syringe INJECT 0.3 MILLILITERS SUBCUTANEOUSLY EVERY 12 HOURS FOR TWO WEEKS enoxaparin 30 mg/0.3 mL subcutaneous syr travis INJECT 0.3 MILLILITERS SUBCUTANEOUSLY EVERY 12 HOURS FOR TWO WEEKS completed 0.3 ML enoxaparin sodium 100 MG/ML Prefilled Syringe MAR[facility]IA ([facility]) Amoxicillin 500 MG / Clavulanate 125 MG Oral Tablet amoxicillin 500 mg-potassium clavulanate 125 mg tablet TAKE ONE TABLET BY MOUTH EVERY TWELVE HOURS amoxicillin 500 mg-potassium clavulanate 125 mg tablet TAKE ONE TABLET BY MOUTH EVERY TWELVE HOURS completed amoxicillin 500 MG / clavulanate 125 MG Oral Tablet [facility] ([facility]) Acetaminophen 325 MG / Oxycodone Hydroch loride 5 MG Oral Tablet oxycodone- acetaminophen 5 mg-325 mg tablet oxycodone-acetaminophen 5 mg-325 mg tablet completed acetaminop hen 325 MG / oxycodone hydrochloride 5 MG Oral Tablet [facility] ([facility]) 0.3 ML Enoxaparin sodium 100 MG/ML Prefi lled Syringe enoxaparin 30 mg/0.3 mL subcutaneous syringe INJECT 0.3 MILLILITERS SUBCUTANEOUSLY EVERY 12 HOURS FOR TWO WEEKS enoxaparin 30 mg/0.3 mL subcutaneous syr travis INJECT 0.3 MILLILITERS SUBCUTANEOUSLY EVERY 12 HOURS FOR TWO WEEKS completed 0.3 ML enoxaparin sodium 100 MG/ML Prefilled Syringe MARILIA ([facility]) Ciprofloxacin 250 MG Oral Tablet ciprofl oxacin 250 mg tablet TAKE ONE TABLET BY MOUTH TWICE DAILY FOR 3 DAYS ciprofloxacin 250 mg tablet TAKE ONE TAB LET BY MOUTH TWICE DAILY FOR 3 DAYS completed ciprofloxacin 250 MG Oral Tablet [facility] ([facility]) tramadol hydrochloride 50 MG Oral Tablet tramadol 50 mg tablet TAKE ONE TABLET BY MOUTH EVERY 6 HOURS NEEDED FOR PAIN MAX DAILY DOSE FOUR TABLETS tramadol 50 mg tablet TAKE ONE TABLET BY MOUTH EVERY 6 HOURS NEEDED FOR PAIN MAX DAILY DOSE FOUR TABLETS completed tramadol hydrochloride 50 MG Oral Tablet MAR[facility] ([facility]) tramadol hydrochloride 50 MG Oral Tablet tramadol 50 mg tablet TAKE ONE TABLET BY MOUTH EVERY 6 HOURS NEEDED FOR PAIN MAX DAILY DOSE FOUR TABLETS tramadol 50 mg tablet TAKE ONE TABLET BY MOUTH EVERY 6 HOURS NEEDED FOR PAIN MAX DAILY DOSE FOUR TABLETS completed tramadol hydrochloride 50 MG Oral Tablet [facility] ([facility]) Methylprednisolone 4 MG Oral Tablet methylprednisolone 4 mg tablet 1 tab daily methylprednisolone 4 mg tablet 1 tab daily completed methylprednisolone 4 MG Oral Tablet MAR[facility]IA ([facility]) Methylprednisolone 2 MG Oral Tablet [Med rol] Medrol 2 mg tablet 1 tablet every other day Medrol 2 mg tablet 1 tablet every other day completed methylprednisolone 2 MG Oral Tablet [Medrol] [facility]ILIA ([facility]) Estradiol 0.1 MG/ML Vaginal Cream estradiol 0.01% (0.1 mg/gram) vaginal cream estradiol 0.01% (0.1 mg/gram) vaginal cream completed estradiol 0.1 MG/ML Vaginal Cream MAR[facility]IA ([facility]) Ciprofloxacin 250 MG Oral Tablet ciprofl oxacin 250 mg tablet TAKE ONE TABLET BY MOUTH TWICE DAILY FOR 3 DAYS ciprofloxacin 250 mg tablet TAKE ONE TAB LET BY MOUTH TWICE DAILY FOR 3 DAYS completed ciprofloxacin 250 MG Oral Tablet MARILIA ([facility]) Estradiol 0.1 MG/ML Vaginal Cream estradiol 0.01% (0.1 mg/gram) vaginal cream estradiol 0.01% (0.1 mg/gram) vaginal cream completed estradiol 0.1 MG/ML Vaginal Cream MARILIA ([facility]) glimepiride 2 MG Oral Tablet glimepiride 2 mg tablet TAKE ONE TABLET BY MOUTH @8AM and TAKE ONE TABLET @8PM glimepiride 2 mg tablet TAKE ONE TABLET BY MOUTH @8AM and TAKE ONE TABLET @8PM complete d glimepiride 2 MG Oral Tablet MAR[facility]IA ([facility]) Oxycodone Hydrochloride 5 MG Oral Tablet oxycodone 5 mg tablet TAKE 1 TO 2 TABLETS BY MOUTH EVERY FOUR HOURS NEEDED FOR PAIN MAX DAILY DOSE 12 CAPSULES oxycodone 5 mg tablet TAKE 1 TO 2 TABLETS BY MOUTH EVERY FOUR HOURS NEEDED FOR PAIN MAX DAILY DOSE 12 CAPSULES co mpleted oxycodone hydrochloride 5 MG Oral Tablet MAR[facility]IA ([facility]) Ciprofloxacin 250 MG Oral Tablet ciprofl oxacin 250 mg tablet TAKE ONE TABLET BY MOUTH TWICE DAILY FOR 3 DAYS ciprofloxacin 250 mg tablet TAKE ONE TAB LET BY MOUTH TWICE DAILY FOR 3 DAYS completed ciprofloxacin 250 MG Oral Tablet MAR[facility] ([facility]) Acetaminophen 325 MG / Oxycodone Hydroch loride 5 MG Oral Tablet oxycodone- acetaminophen 5 mg-325 mg tablet oxycodone-acetaminophen 5 mg-325 mg tablet completed acetaminop hen 325 MG / oxycodone hydrochloride 5 MG Oral Tablet [facility]IA ([facility]) Prednisone 20 MG Oral Tablet prednisone 20 mg tablet TAKE ONE TABLET BY MOUTH ONCE DAILY FOR FIVE DAYS prednisone 20 mg tablet TAKE ONE TABLET BY MOUTH ONCE DAILY FOR FIVE DAYS completed pr ednisone 20 MG Oral Tablet [facility] ([facility]) Ciprofloxacin 250 MG Oral Tablet ciprofl oxacin 250 mg tablet TAKE ONE TABLET BY MOUTH TWICE DAILY FOR 3 DAYS ciprofloxacin 250 mg tablet TAKE ONE TAB LET BY MOUTH TWICE DAILY FOR 3 DAYS completed ciprofloxacin 250 MG Oral Tablet MARILIA ([facility]) Estradiol 0.1 MG/ML Vaginal Cream estradiol 0.01% (0.1 mg/gram) vaginal cream estradiol 0.01% (0.1 mg/gram) vaginal cream completed estradiol 0.1 MG/ML Vaginal Cream MARILIA ([facility]) Amoxicillin 500 MG / Clavulanate 125 MG Oral Tablet amoxicillin 500 mg-potassium clavulanate 125 mg tablet TAKE ONE TABLET BY MOUTH EVERY TWELVE HOURS amoxicillin 500 mg-potassium clavulanate 125 mg tablet TAKE ONE TABLET BY MOUTH EVERY TWELVE HOURS completed amoxicillin 500 MG / clavulanate 125 MG Oral Tablet MARILIA ([facility]) Amoxicillin 500 MG / Clavulanate 125 MG Oral Tablet amoxicillin 500 mg-potassium clavulanate 125 mg tablet TAKE ONE TABLET BY MOUTH EVERY TWELVE HOURS amoxicillin 500 mg-potassium clavulanate 125 mg tablet TAKE ONE TABLET BY MOUTH EVERY TWELVE HOURS completed amoxicillin 500 MG / clavulanate 125 MG Oral Tablet MARILIA ([facility]) Methylprednisolone 2 MG Oral Tablet [Med rol] Medrol 2 mg tablet 1 tablet every other day Medrol 2 mg tablet 1 tablet every other day completed methylprednisolone 2 MG Oral Tablet [Medrol] [facility]ILIA ([facility]) glimepiride 1 MG Oral Tablet glimepiride 1 mg tablet glimepiride 1 mg tablet completed glimepiride 1 MG Oral Tablet [facility] ([facility]) Acetaminophen 325 MG / Oxycodone Hydroch loride 5 MG Oral Tablet oxycodone- acetaminophen 5 mg-325 mg tablet oxycodone-acetaminophen 5 mg-325 mg tablet completed acetaminop hen 325 MG / oxycodone hydrochloride 5 MG Oral Tablet MARILIA ([facility]) Ciprofloxacin 250 MG Oral Tablet ciprofl oxacin 250 mg tablet TAKE ONE TABLET BY MOUTH TWICE DAILY FOR 3 DAYS ciprofloxacin 250 mg tablet TAKE ONE TAB LET BY MOUTH TWICE DAILY FOR 3 DAYS completed ciprofloxacin 250 MG Oral Tablet MAR[facility]IA ([facility]) Alprazolam 1 MG Oral Tablet alprazolam 1 mg tablet alprazolam 1 mg ta blet completed alprazolam 1 MG Oral Tablet MARILIA ([facility]) Doxycycline Monohydrate 100 MG Oral Caps ule doxycycline monohydrate 100 mg capsule TAKE ONE CAPSULE BY MOUTH TWICE DAILY FOR SEVEN DAYS doxycycline monohydrate 100 mg capsule TAKE ONE CAPSULE BY MOUTH TWICE DAILY FOR SEVEN DAYS completed doxycycline mo nohydrate 100 MG Oral Capsule [facility]IA ([facility]) Oxycodone Hydrochloride 5 MG Oral Tablet oxycodone 5 mg tablet TAKE 1 TO 2 TABLETS BY MOUTH EVERY FOUR HOURS NEEDED FOR PAIN MAX DAILY DOSE 12 CAPSULES oxycodone 5 mg tablet TAKE 1 TO 2 TABLETS BY MOUTH EVERY FOUR HOURS NEEDED FOR PAIN MAX DAILY DOSE 12 CAPSULES co mpleted oxycodone hydrochloride 5 MG Oral Tablet MAR[facility]IA ([facility]) Ciprofloxacin 250 MG Oral Tablet ciprofl oxacin 250 mg tablet TAKE ONE TABLET BY MOUTH TWICE DAILY FOR 3 DAYS ciprofloxacin 250 mg tablet TAKE ONE TAB LET BY MOUTH TWICE DAILY FOR 3 DAYS completed ciprofloxacin 250 MG Oral Tablet [facility]IA ([facility]) glimepiride 1 MG Oral Tablet glimepiride 1 mg tablet glimepiride 1 mg tablet completed glimepiride 1 MG Oral Tablet MAR[facility] ([facility]) Methylprednisolone 2 MG Oral Tablet [Med rol] Medrol 2 mg tablet 1 tablet every other day Medrol 2 mg tablet 1 tablet every other day completed methylprednisolone 2 MG Oral Tablet [Medrol] [facility]ILIA ([facility]) Methylprednisolone 4 MG Oral Tablet methylprednisolone 4 mg tablet 1 tab daily methylprednisolone 4 mg tablet 1 tab daily completed methylprednisolone 4 MG Oral Tablet MAR[facility] ([facility]) Acetaminophen 325 MG / Oxycodone Hydroch loride 5 MG Oral Tablet oxycodone- acetaminophen 5 mg-325 mg tablet oxycodone-acetaminophen 5 mg-325 mg tablet completed acetaminop hen 325 MG / oxycodone hydrochloride 5 MG Oral Tablet [facility] ([facility]) tramadol hydrochloride 50 MG Oral Tablet tramadol 50 mg tablet TAKE ONE TABLET BY MOUTH EVERY 6 HOURS NEEDED FOR PAIN MAX DAILY DOSE FOUR TABLETS tramadol 50 mg tablet TAKE ONE TABLET BY MOUTH EVERY 6 HOURS NEEDED FOR PAIN MAX DAILY DOSE FOUR TABLETS completed tramadol hydrochloride 50 MG Oral Tablet [facility] ([facility]) Insurance Providers Payer name Policy type / Coverage type Policy ID Covered constitution party ID Covered constitution party's relationship to leonard Policy Leonard Plan Information [place] Med[place] Part [place] [id number] 1880.0 Self [id number] [place] Med[place] Part B [id number] Self [facility] Community Plan Commercial [id number] Self [id number] [facility] Hmo Blue Option Medigap Part B [id number] Self [id number] [id number] [facility] [employer] Blue Option Medigap Part B [id number] Self [id number] [id number] [facility] [place] Hmo Blue Option Medigap Part B [id number] Self [id number] [id number] [facility] [place] Hmo Blue Option Medigap Part B [id number] Self [id number] [id number] [facility] Community Plan Commercial [id number] Self [id number] [facility] Hmo Blue Option Medigap Part B [id number] Self [id number] [id number] [facility] [place] [employer]mo Blue Option Medigap Part B [id number] Self [id number] [id number] [facility] Community Plan Commercial [id number] Self [id number] [facility] [employer]mo Blue Option Medigap Part B [id number] Self [id number] [id number] [facility] [place] [employer] Blue Option Medigap Part B [id number] Self [id number] [id number] [facility] Community Plan Commercial [id number] Self [id number] [facility] [employer]mo Blue Option Medigap Part B [id number] Self [id number] [id number] [facility] [employer] Blue Option Medigap Part B [id number] Self [id number] [id number] [facility] Community Plan Commercial [id number] Self [id number] [facility] [employer] Blue Option Medigap Part B [id number] Self VY [id number] [facility] [employer] Blue Option Medigap Part B [id number] Self [id number] [id number] [facility] [employer] Blue Option Medigap Part B [id number] Self VY [id number] [facility] [employer] Blue Option Medigap Part B [id number] Self [facility] [place] [employer] Blue Option Medigap Part B [id number] Self [id number] [facility] [employer]mo Blue Option Medigap Part B [id number] Self [id number] [id number] [facility] Community Plan Commercial [id number] Self [id number] [facility] Community Plan Commercial [id number] Self [id number] [facility] Community Plan Commercial [id number] Self [id number] [facility] Community Plan Commercial [id number] Self [facility] Comm Plan Medicaid F [id number] SELF [id number] [facility] Community Plan Commercial [id number] Self [id number] [facility] Comm Plan Medicaid F [id number] SELF [id number] [facility] Comm Plan Medicaid F [id number] SELF [id number] Medicaid Dental S [id number] UHC I [id number] Self [id number] UHC I [id number] Self [id number] [place] [employer] ([place] Workers Compensation [id number] 30 [id number] [place] [employer] ([place] Workers Compensation [id number] [facility] Comm Plan Medicaid F [id number] SELF [id number] UNHC COMMUNITY PLAN MCDHMO [id number] SP [id number] [facility] [id number] SP [id number] UH COMMUNITY PLAN [id number] SP [id number] UNHC COMMUNITY PLAN MCDHMO [id number] SP [id number] UNHC COMMUNITY PLAN MCDHMO [id number] SP [id number] UNHC COMMUNITY PLAN MCDHMO [id number] SP [id number] UH COMMUNITY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 NEGATIVE NEGATIVE [facility] TESTING PERFORMED BY NUCLEIC ACID HYBRI DIZATION ID Date Data Source [id number] 08/11/2020 03:39:00 PM EDT [facility] ([facility]) Name Value Range Interpretation Code Description Data Tashia rce(s) Supporting Document(s) Protein [Presence] in Urine by Test strip 30 mg/dL [facility] ([facility]) Glucose [Presence] in Urine 100 mg/dL [facility] ([facility]) Ua Nitrite Laboratory test result ME DENT ([facility]) Ua Leuko Laboratory test result [facility] ([facility]) Color of Urine Laboratory test result [facility] ([facility]) Blood [Presence] in Urine by Visual Laboratory test result [facility] ([facility]) Ketones [Presence] in Urine by Test strip Laboratory test result [facility] ([facility]) Clarity of Urine Laboratory test result [facility] ([facility]) pH of Urine by Test strip 7.0 5.0-7.5 [facility] ([facility]) Ua Specific [place] 1.020 1.003-1.030 MEDE NT ([facility]) Urobilinogen [Mass/volume] in Urine by Test strip 0.2 E.U./dL 0.0-1.0 [facility] ([facility]) Bilirubin.total [Presence] in Urine by Test strip Laboratory test res ult [facility] ([facility]) ID Date Data Source [id number] 08/11/2020 12:00:00 AM EDT MARILIA ([facility]) Name Value Range Interpretation Code Description Data Tashia rce(s) Supporting Document(s) ID Date Data Source [id number] 08/11/2020 12:00:00 AM EDT [facility] Name Value Range Interpretation Code Description Data Tashia rce(s) Supporting Document(s) SARS-CoV-2 NEGATIVE [facility] This lab was ordered by [facility]-COVID19 and reported by [facility]. ID Date Data Source [id number] 08/11/2020 12:00:00 AM EDT MARILIA ([facility]) Name Value Range Interpretation Code Description Data Tashia rce(s) Supporting Document(s) ID Date Data Source [id number] 08/11/2020 12:00:00 AM EDT MARILIA ([facility]) Name Value Range Interpretation Code Description Data Tashia rce(s) Supporting Document(s) ID Date Data Source [id number] 07/23/2020 09:44:00 AM EDT [facility] ([facility]) Name Value Range Interpretation Code Description Data Tashia rce(s) Supporting Document(s) Glucose [Presence] in Urine Laboratory test result [facility] ([facility]) Ua Nitrite Laboratory test result [facility] ([facility]) Protein [Presence] in Urine by Test strip Laboratory test result [facility] ([facility]) Ua Leuko Laboratory test result [facility] ([facility]) Blood [Presence] in Urine by Visual Laboratory test result [facility] ([facility]) Ketones [Presence] in Urine by Test strip Laboratory test result [facility] ([facility]) Color of Urine Laboratory test result [facility] ([facility]) Ua Specific [place] 1.025 1.003-1.030 MEDE NT ([facility]) Clarity of Urine Laboratory test result [facility] ([facility]) pH of Urine by Test strip 7.0 5.0-7.5 [facility] ([facility]) Bilirubin.total [Presence] in Urine by Test strip Laboratory test res ult [facility] ([facility]) Urobilinogen [Mass/volume] in Urine by Test strip 0.2 E.U./dL 0.0-1.0 [facility] ([facility]) ID Date Data Source [id number] 07/14/2020 03:26:00 PM EDT [facility] ([facility]) Name Value Range Interpretation Code Description Data Tashia rce(s) Supporting Document(s) Bacteria identified in Urine by Culture Laboratory test result [facility] ([facility]) <content> --------</content>
<content>Run: 07/16/20 0832 INTERFACED REPORT</content>
<content> </content>
<content>Name: Cassie Jiang Age/Sex: 65/F Location: LAB</content>
<content>Acct: [id number] Unit: [id number] Status: REG REF Room/Bed:</content>
<content>Re07/14/20 Disch: Att Dr: Monica Bal MD</content>
<content> </content>
<content></content>
<content>Specimen #: [id number] Ordered : 07/14/2012/25/1809</content>
<content>Collected : 07/14/2012/26/1515 By: EMERSON Received: 07/14/2012/25/1809 By: CYNTHIA</content>
<content>Source: URINE CATH Specimen Description:</content>
<content></content>
<content> </conten t>
<content>Procedure Result</content>
<content> </content>
<content>COLONY COUNT Final</content>
<content>COLONY COUNT GREATER THAN 100,000 CFU/ML</content>
<content></content>
<content>URINE CULTURE Final</content>
<content>GRAM NEGATIVE RODS MANY</content>
<content></content>
<content></content>
<content>Organism 1 KLEBSIELLA PNEUMONIAE</content>
<content></content>
<content>1. KLEBSIELLA PNEUMONIAE</content>
<content>DONNA Int</content>
<content>--------- ---</content>
<content>AMIKACIN <=16 S</content>
<content>AMPICILLIN >16 R</content>
<content>AMPICILLIN/SULBACTAM <=8/4 S</content>
<content>AZTREONAM <=4 S</content>
<content>CEFAZOLIN <=2 S</content>
<content>CEFEPIME <=2 S</content>
<content>CEFTAZIDIME <=1 S</content>
<content>CEFTRIAXONE <=1 S</content>
<content>CIPROFLOXACIN <=1 S</content>
<content>GENTAMICIN <=4 S</content>
<content>IMIPENEM <=1 S</content>
<content>LEVOFLOXACIN <=2 S</content>
<content>MEROPENEM <=1 S</content>
<content>NITROFURANTOIN >64 R</content>
<content>TETRACYCLINE <=4 S</content>
<content>TOBRAMYCIN <=4 S</content>
<content>TRIMETHOPRIM/SULFAMETHOXAZOLE <=2/38 S</content>
<content>PIPERACILLIN/TAZOBACTAM <=16 S</content>
<content></content>
<content>S = Susceptible</content>
<content>MS = Moderately Susceptible</content>
<content>I = Intermediate</content>
<content>R = Resistant</content>
<content>TANIA = Beta Lactamase Positive</content>
<content>DONNA = MCG/mL</content>
<content>BLANK = Not Tested or Advisable</content>
<content></content>
<content>URINE CULTURE Preliminary (Corrected)</content>
<content>GRAM NEGATIVE RODS MANY</content>
<content> </content>
<content></content>
<content> </content>
<cont ent></content>
<content></content>
<content></content>
<content> END OF REPORT </content>
<content></content> ID Date Data Source [id number] 07/16/2020 08:32:00 AM EDT [facility] Run: 07/16/20 0832 INTERFACED REPORT Name: Cassie Jiang Age/Sex: 65/F Location: [facility] Acct: [id number] Unit: [id number] Status: REG REF Room/Bed: Re07/14/20 Disch: Att Dr: Monica Bal MD Specimen #: [id number] Ordered : 07/14/2012/25/1809 Collected : 07/14/2012/26/1515 By: EMERSON Received: 07/14/2012/25/1809 By: CYNTHIA Source: URINE CATH Specimen Description: Procedure Result - COLONY COUNT Final COLONY COUNT GREATER THAN 100,000 CFU/ML URINE CULTURE Final GRAM NEGATIVE RODS MANY Organism 1 KLEBSIELLA PNEUMONIAE 1. KLEBSIELLA PNEUMONIAE DONNA Int --------- --- AMIKACIN <=16 S AMPICILLIN >16 R AMPICILLIN/SULBACTAM <=8/4 S AZTREONAM <=4 S CEFAZOLIN <=2 S CEFEPIME <=2 S CEFTAZIDIME <=1 S CEFTRIAXONE <=1 S CIPROFLOXACIN <=1 S GENTAMICIN <=4 S IMIPENEM <=1 S LEVOFLOXACIN <=2 S MEROPENEM <=1 S NITROFURANTOIN >64 R TETRACYCLINE <=4 S TOBRAMYCIN <=4 S TRIMETHOPRIM/SULFAMETHOXAZOLE <=2/38 S PIPERACILLIN/TAZOBACTAM <=16 S S = Susceptible MS = Moderately Susceptible I = Intermediate R = Resistant TANIA = Beta Lactamase Positive DONNA = MCG/mL BLANK = Not Tested or Advisable URINE CULTURE Preliminary (Corrected) GRAM NEGATIVE RODS MANY END OF REPORT Name Value Range Interpretation Code Description Data Tashia rce(s) Supporting Document(s) ID Date Data Source [id number] 07/14/2020 03:15:00 PM EDT [facility] ([facility]) Name Value Range Interpretation Code Description Data Tashia rce(s) Supporting Document(s) Glucose [Presence] in Urine Laboratory test result [facility] ([facility]) Ua Nitrite Laboratory test result [facility] ([facility]) Protein [Presence] in Urine by Test strip 30 mg/dL [facility] ([facility]) Blood [Presence] in Urine by Visual Laboratory test result [facility] ([facility]) Ua Leuko Laboratory test result [facility] ([facility]) Clarity of Urine Laboratory test result [facility] ([facility]) Ketones [Presence] in Urine by Test strip Laboratory test result [facility] ([facility]) Color of Urine Laboratory test result [facility] ([facility]) pH of Urine by Test strip 5.0 5.0-7.5 [facility] ([facility]) Ua Specific [place] Laboratory test result 1.003-1.030 [facility] ([facility]) Bilirubin.total [Presence] in Urine by Test strip Laboratory test res ult [facility] ([facility]) Urobilinogen [Mass/volume] in Urine by Test strip 0.2 E.U./dL 0.0-1.0 [facility] ([facility]) ID Date Data Source [id number] 07/14/2020 03:07:00 PM EDT [facility] ([facility]) Name Value Range Interpretation Code Description Data Tashia rce(s) Supporting Document(s) Glucose [Presence] in Urine Laboratory test result [facility] ([facility]) Protein [Presence] in Urine by Test strip 30 mg/dL [facility] ([facility]) Ua Nitrite Laboratory test result [facility] ([facility]) Ua Leuko Laboratory test result [facility] ([facility]) Blood [Presence] in Urine by Visual Laboratory test result [facility] ([facility]) Color of Urine Laboratory test result [facility] ([facility]) Clarity of Urine Laboratory test result [facility] ([facility]) Ketones [Presence] in Urine by Test strip Laboratory test result [facility] ([facility]) pH of Urine by Test strip 5.0 5.0-7.5 [facility] ([facility]) Ua Specific [place] Laboratory test result 1.003-1.030 [facility] ([facility]) Bilirubin.total [Presence] in Urine by Test strip Laboratory test res ult [facility] ([facility]) Urobilinogen [Mass/volume] in Urine by Test strip 0.2 E.U./dL 0.0-1.0 [facility] ([facility]) ID Date Data Source LIPID PANEL (CARDIAC RISK) 07/04/2020 12:00:00 AM EDT eCW1 ( [facility]) Name Value Range Interpretation Code Description Data Tashia rce(s) Supporting Document(s) Cholesterol [Moles/volume] in Serum or Plasma 156 <200 CHOLESTEROL LEVEL eCW ([facility]) Triglyceride [Mass/volume] in Serum or Plasma by calculation 92 <150 TRIGLYCERIDES LEVEL eCW1 ([facility]) Cholesterol in LDL [Mass/volume] in Serum or Plasma by calculation 65 <100 LDL CHOLESTEROL eCW1 ([facility]) Cholesterol in HDL [Moles/volume] in Serum or Plasma 73 >40 HDL CHOLESTEROL eCW1 ([facility]) 83 NON-HDL-C eCW1 ([facility]) 2.136 <5 CHOLESTEROL RISK RATIO eCW1 ([facility]) ID Date Data Source [id number] 07/04/2020 12:00:00 AM EDT eCW1 ([facility]) Name Value Range Interpretation Code Description Data Tashia rce(s) Supporting Document(s) Hemoglobin A1c/Hemoglobin.total in Blood 6.6 HEMOGLOBIN A1c eC1 ([facility]) ID Date Data Source IRON (FE) 05/26/2020 12:00:00 AM EDT eCW1 ([facility]) Name Value Range Interpretation Code Description Data Tashia rce(s) Supporting Document(s) 46 50-170 eCW1 ([facility]) ID Date Data Source CBC with Auto Differential 05/26/2020 12:00:00 AM EDT eCW1 ( [facility]) Name Value Range Interpretation Code Description Data Tashia rce(s) Supporting Document(s) 33.8 36.0-47.0 eCW1 ([facility]) 10.8 12.0-15.5 eCW1 ([facility]) 7.7 4.0-10.0 eCW1 ([facility]) 89.9 80.0-96.0 eCW1 ([facility]) 3.76 4.00-5.40 eCW1 ([facility]) 14.1 11.5-14.5 eCW1 ([facility]) 32.0 32.0-36.5 eCW1 ([facility]) 28.7 27.0-33.0 eCW1 ([facility]) 343 150-450 eCW1 ([facility]) 4.7 0.0-3.0 eCW1 ([facility]) 32.1 24.0-44.0 eCW1 ([facility]) 6.1 2.0-8.0 eCW1 ([facility]) 55.9 36.0-66.0 eCW1 ([facility]) 0.0 0-0 eCW1 ([facility]) 4.3 1.5-8.5 eCW1 ([facility]) 0.4 0-3.0 eCW1 ([facility]) 0.8 0.0-1.0 eCW1 ([facility]) 0.1 0.0-0.2 eCW1 ([facility]) 2.5 1.5-5.0 eCW1 ([facility]) 0.5 0.0-0.8 eCW1 ([facility]) 0.4 0.0-0.5 eCW1 ([facility]) ID Date Data Source [id number] 05/12/2020 12:00:00 AM EST eCW1 ([facility]) Name Value Range Interpretation Code Description Data Tashia rce(s) Supporting Document(s) Microalbumin/Creatinine [Ratio] in Urine 8.9 0.0-30.0 eCW1 ([facility]) Albumin/Creatinine [Mass Ratio] in Urine 9.8 eCW1 ([facility]) Microalbumin/Creatinine [Mass Ratio] in Urine 109.0 eCW1 ([facility]) ID Date Data Source [id number] 04/29/2020 06:29:00 AM EST [facility] Name Value Range Interpretation Code Description Data Tashia rce(s) Supporting Document(s) SARS-CoV-2 (COVID 19) NEGATIVE - SARS-CoV-2 (COVID19) [facility] This lab was ordered by [facility] a nd reported by [facility]. ID Date Data Source [id number] 04/09/2020 10:42:00 AM EST [facility] Run: 04/09/20 1043 INTERFACED REPORT Name: Cassie Jiang Age/Sex: 64/F Location: [facility] Acct: [id number] Unit: [id number] Status: REG REF Room/Bed: Re04/07/20 Disch: Att Dr: Monica Bal MD Specimen #: [id number] Ordered : 04/07/2003/27/1856 Collected : 04/07/2003/27/1329 By: [...] rce(s) Supporting Document(s) ID Date Data Source [id number] 04/07/2020 01:30:00 PM EST [facility] ([facility]) Name Value Range Interpretation Code Description Data Tashia rce(s) Supporting Document(s) Glucose [Presence] in Urine Laboratory test result [facility] ([facility]) Ua Nitrite Laboratory test result ME DENT ([facility]) Protein [Presence] in Urine by Test strip Laboratory test result [facility] ([facility]) Ua Leuko Laboratory test result ME [facility]ENT ([facility]) Blood [Presence] in Urine by Visual Laboratory test result [facility] ([facility]) Color of Urine Laboratory test result [facility] ([facility]) Ketones [Presence] in Urine by Test strip Laboratory test result [facility] ([facility]) Clarity of Urine Laboratory test result [facility] ([facility]) pH of Urine by Test strip 5.0 5.0-7.5 [facility] ([facility]) Ua Specific [place] 1.025 1.003-1.030 MEDE NT ([facility]) Bilirubin.total [Presence] in Urine by Test strip Laboratory test res ult [facility] ([facility]) Urobilinogen [Mass/volume] in Urine by Test strip 0.2 E.U./dL 0.0-1.0 MEDREMY ([facility]) ID Date Data Source [id number] 04/07/2020 01:30:00 PM EST EVELYNE ([facility]) Name Value Range Interpretation Code Description Data Tashia rce(s) Supporting Document(s) Bacteria identified in Urine by Culture Laboratory test result MEDREMY ([facility]) <content>Run: 04/09/20 1043 INTERFACED REPORT</content>
<content> ntent>Name: Cassie Jiang Age/Sex: 64/F Location: [facility]</content>
<content>Acct: [id number] Unit: [id number] Status: REG REF Room/Bed:</content>
<content>Re04/07/20 Disch: Att Dr: Monica Bal MD</content>
<content> </content>
<content></content>
<content>Specimen #: [id number] Ordered : 04/07/2003/27/1856</content>
<content>Collected : 04/07/2003/27/1329 By: [...] REPORT </content>
<content></content> ID Date Data Source [id number] 04/07/2020 01:23:00 PM EST [facility] ([facility]) Name Value Range Interpretation Code Description Data Tashia rce(s) Supporting Document(s) Glucose [Presence] in Urine Laboratory test result [facility] ([facility]) Protein [Presence] in Urine by Test strip Laboratory test result [facility] ([facility]) Ua Leuko Laboratory test result [facility] ([facility]) Ua Nitrite Laboratory test result [facility] ([facility]) Color of Urine Laboratory test result [facility] ([facility]) Blood [Presence] in Urine by Visual Laboratory test result [facility] ([facility]) Ketones [Presence] in Urine by Test strip Laboratory test result [facility] ([facility]) Clarity of Urine Laboratory test result [facility] ([facility]) Ua Specific [place] Laboratory test result 1.003-1.030 [facility] ([facility]) pH of Urine by Test strip 5.0 5.0-7.5 [facility] ([facility]) Urobilinogen [Mass/volume] in Urine by Test strip 0.2 E.U./dL 0.0-1.0 [facility] ([facility]) Bilirubin.total [Presence] in Urine by Test strip Laboratory test res ult [facility] ([facility]) ID Date Data Source [id number] 03/26/2020 12:00:00 AM EST MARILIA ([facility]) Name Value Range Interpretation Code Description Data Tashia rce(s) Supporting Document(s) ID Date Data Source [id number] 03/26/2020 12:00:00 AM EST MARILIA ([facility]) Name Value Range Interpretation Code Description Data Tashia rce(s) Supporting Document(s) SARS-CoV-2 (COVID-19) RNA [Presence] in Respiratory specimen by PHANI with probe detection negative negative Sars-cov-2 MARILIA ([facility]) ID Date Data Source [id number] 03/26/2020 12:00:00 AM EST MARILIA ([facility]) Name Value Range Interpretation Code Description Data Tashia rce(s) Supporting Document(s) ID Date Data Source [id number] 03/26/2020 12:00:00 AM EST MARILIA ([facility]) Name Value Range Interpretation Code Description Data Tashia rce(s) Supporting Document(s) SARS-CoV-2 (COVID-19) RNA [Presence] in Respiratory specimen by PHANI with probe detection negative negative Sars-cov-2 MARILIA ([facility]) ID Date Data Source [id number] 03/26/2020 12:00:00 AM EST [facility] Name Value Range Interpretation Code Description Data Tashia rce(s) Supporting Document(s) SARS-CoV-2 NEGATIVE [facility] This lab was ordered by [facility]-COVID19 and reported by [facility]. ID Date Data Source [id number] 03/26/2020 12:00:00 AM EST MARILIA ([facility]) Name Value Range Interpretation Code Description Data Tashia rce(s) Supporting Document(s) ID Date Data Source [id number] 03/26/2020 12:00:00 AM EST MARILIA ([facility]) Name Value Range Interpretation Code Description Data Tashia rce(s) Supporting Document(s) SARS-CoV-2 (COVID-19) RNA [Presence] in Respiratory specimen by PHANI with probe detection negative negative Sars-cov-2 MARILIA ([facility]) ID Date Data Source [id number] 03/26/2020 12:00:00 AM EST MARILIA ([facility]) Name Value Range Interpretation Code Description Data Tashia rce(s) Supporting Document(s) ID Date Data Source [id number] 03/26/2020 12:00:00 AM EST MARILIA ([facility]) Name Value Range Interpretation Code Description Data Tashia rce(s) Supporting Document(s) SARS-CoV-2 (COVID-19) RNA [Presence] in Respiratory specimen by PHANI with probe detection negative negative Sars-cov-2 MARILIA ([facility]) ID Date Data Source [id number] 03/26/2020 12:00:00 AM EST MARILIA ([facility]) Name Value Range Interpretation Code Description Data Tashia rce(s) Supporting Document(s) ID Date Data Source [id number] 03/26/2020 12:00:00 AM EST MARILIA ([facility]) Name Value Range Interpretation Code Description Data Tashia rce(s) Supporting Document(s) SARS-CoV-2 (COVID-19) RNA [Presence] in Respiratory specimen by PHANI with probe detection negative negative Sars-cov-2 MARILIA ([facility]) ID Date Data Source [id number] 03/26/2020 12:00:00 AM EST MARILIA ([facility]) Name Value Range Interpretation Code Description Data Tashia rce(s) Supporting Document(s) ID Date Data Source [id number] 03/26/2020 12:00:00 AM EST MARLIIA ([facility]) Name Value Range Interpretation Code Description Data Tashia rce(s) Supporting Document(s) SARS-CoV-2 (COVID-19) RNA [Presence] in Respiratory specimen by PHANI with probe detection negative negative Sars-cov-2 MARILIA ([facility]) ID Date Data Source [id number] 03/26/2020 12:00:00 AM EST MARILIA ([facility]) Name Value Range Interpretation Code Description Data Tashia rce(s) Supporting Document(s) ID Date Data Source [id number] 03/26/2020 12:00:00 AM EST MARILIA ([facility]) Name Value Range Interpretation Code Description Data Tashia rce(s) Supporting Document(s) SARS-CoV-2 (COVID-19) RNA [Presence] in Respiratory specimen by PHANI with probe detection negative negative Sars-cov-2 MARILIA ([facility]) ID Date Data Source [id number] 03/12/2020 10:08:00 AM EST MEDENT ([facility], ) Name Value Range Interpretation Code Description Data Tashia rce(s) Supporting Document(s) PDFReport Laboratory test result MEDENT ([facility], ) FVC-Pred 3.47 L MED[facility] ([facility], ) FVC-%Pred-Pre 73 L MEDENT ([facility], ) FVC-Pre 2.54 L MED[facility] ([facility]) FVC-LLN 2.73 L [facility] ([facility]) Fev1-%Pred-Pre 72 L MED[facility] ([facility]) Fev1-Pre 1.92 L [facility] ([facility]) Fev1-Pred 2.67 L [facility] ([facility]) Fev6-Pred 3.34 L [facility] ([facility]) Fev1-LLN 2.04 L [facility] ([facility]) Fev6-%Pred-Pre 75 L MEDENT ([facility], ) Gfj0ifb-Zayf 77 % MED[facility] ([facility]) Fev6-Pre 2.51 L MED[facility] ([facility]) Fev6-LLN 2.62 L MED[facility] ([facility]) Cap1uha-Mmf 76 % MED[facility] ([facility]) Zwy7mos-%Pred-Pre 97 % MEDENT ([facility]) Iqb6ceo-LIU 68 % [facility] ([facility]) Tuf2ybw-%Pred-Pre 102 % [facility] ([facility]) Tbq4xga-Ffsu 96 % [facility] ([facility]) Jeu1nuw-Qeu 99 % [facility] [facility]) FEFMax-Pre 5.72 L/E/sec [facility] ([facility]) FEFMax-Pred 6.43 L/E/sec [facility] ([facility]) FEFMax-%Pred-Pre 88 L/E/sec [facility] ([facility]) Yni2250-Ajxo 2.34 L/E/sec [facility] ([facility]) FEFMax-LLN 4.61 L/E/sec [facility] ([facility]) Jly5043-Ige 1.46 L/E/sec [facility] ([facility]) Yqc5418-AQJ 1.02 L/E/sec [facility] ([facility]) ExpTime-Pre 7.33 sec [facility] ([facility]) Kwv5432-%Pred-Pre 62 L/E/sec [facility] ([facility]) Fsb8bhi6-Lxg 76 % [facility] ([facility]) Cvg0sng8-%Pred-Pre 95 % [facility] ([facility]) Cmy4ktg3-Zahu 80 % [facility] ([facility]) Scj1djo9-EFB 71 % [facility] ([facility]) ID Date Data Source [id number] 01/10/2020 02:03:00 PM EST [facility] ([facility] Name Value Range Interpretation Code Description Data Tashia rce(s) Supporting Document(s) Bacteria identified in Vaginal fluid by Aerobe culture Laborator y test result [facility] ([facility]) ID Date Data Source [id number] 01/11/2020 11:49:00 AM EST [facility] Name Value Range Interpretation Code Description Data Tashia rce(s) Supporting Document(s) LINDA BY DNA PROBE NEGATIVE NEGATIVE [facility] GARDNERELLA BY DNA PROBE POSITIVE NEGATIVE [facility] TRICHOMONAS BY DNA PROBE NEGATIVE NEGATIVE [facility] TESTING PERFORMED BY NUCLEIC ACID HYBRI DIZATION ID Date Data Source [id number] 01/10/2020 02:03:00 PM EST [facility] ([facility]) Name Value Range Interpretation Code Description Data Tashia rce(s) Supporting Document(s) Gardnerella By Dna Probe Laboratory test result Abnormal (applies to non- numeric results) [facility] ([facility]) Linda sp rRNA [Presence] in Vaginal fluid by DNA probe Lab oratory test result [facility] ([facility]) Trichomonas vaginalis rRNA [Presence] in Genital speci men by DNA probe Laboratory test result [facility] ([facility]) TESTING PERFORMED BY NUCLEIC ACID HYBRID IZATION ID Date Data Source [id number] 01/12/2020 11:21:00 AM EST [facility] Run: 01/12/20 1121 INTERFACED REPORT Name: Cassie Jiang Age/Sex: 64/F Location: [facility] Acct: [id number] Unit: [id number] Status: REG REF Room/Bed: Re01/10/20 Disch: Att Dr: Amira Garg Specimen #: [id number] Ordered : 01/10/2007/24/1930 Collected : 01/10/2007/24/1401 By: [...] rce(s) Supporting Document(s) ID Date Data Source [id number] 01/10/2020 02:02:00 PM EST [facility] ([facility] Name Value Range Interpretation Code Description Data Tashia rce(s) Supporting Document(s) Bacteria identified in Urine by Culture Laboratory test result [facility] ([facility]) <content> --------</content>
<content>Run: 01/12/20 1121 INTERFACED REPORT</content>
<content> </content>
<content>Name: Cassie Jiang Age/Sex: 64/F Location: [facility]</content>
<content>Acct: [id number] Unit: [id number] Status: REG REF Room/Bed:</content>
<content>Re01/10/20 Disch: Junior Dr: Amira Garg</content>
<content> </content>
<content></content>
<content>Specimen #: [id number] Ordered : 01/10/2007/24/1930</content>
<content>Collected : 01/10/2007/24/1401 By: OFFICE Received: 01/10/2007/24/1930 By: ARAUGAL</content>
<content>Source: URINE CATH Specimen Description:</content>
<content></content>
<content> [...] REPORT </content>
<content></content> ID Date Data Source [id number] 01/10/2020 02:01:00 PM EST [facility] ([facility]) Name Value Range Interpretation Code Description Data Tashia rce(s) Supporting Document(s) Glucose [Presence] in Urine Laboratory test result [facility] ([facility]) Protein [Presence] in Urine by Test strip Laboratory test result [facility] ([facility]) Ua Nitrite Laboratory test result [facility] ([facility]) Ua Leuko Laboratory test result [facility] ([facility]) Blood [Presence] in Urine by Visual Laboratory test result [facility] ([facility]) Ketones [Presence] in Urine by Test strip 15 mg/dL [facility] ([facility]) Color of Urine Laboratory test result [facility] ([facility]) pH of Urine by Test strip 6.5 5.0-7.5 [facility] ([facility]) Ua Specific [place] 1.020 1.003-1.030 MEDE NT ([facility]) Clarity of Urine Laboratory test result [facility] ([facility]) Urobilinogen [Mass/volume] in Urine by Test strip 0.2 E.U./dL 0.0-1.0 [facility] ([facility]) Bilirubin.total [Presence] in Urine by Test strip Laboratory test res ult [facility] ([facility]) ID Date Data Source [id number] 01/10/2020 01:44:00 PM EST [facility] ([facility]) Name Value Range Interpretation Code Description Data Tashia rce(s) Supporting Document(s) Glucose [Presence] in Urine Laboratory test result [facility] ([facility]) Ua Nitrite Laboratory test result [facility] ([facility]) Protein [Presence] in Urine by Test strip Laboratory test result [facility] ([facility]) Ua Leuko Laboratory test result [facility] ([facility]) Blood [Presence] in Urine by Visual Laboratory test result [facility] ([facility]) Ketones [Presence] in Urine by Test strip 15 mg/dL [facility] ([facility]) Clarity of Urine Laboratory test result [facility] ([facility]) Color of Urine Laboratory test result [facility] ([facility]) Ua Specific [place] 1.025 1.003-1.030 MEDE NT ([facility]) pH of Urine by Test strip 6.0 5.0-7.5 [facility] ([facility]) Urobilinogen [Mass/volume] in Urine by Test strip 0.2 E.U./dL 0.0-1.0 [facility] ([facility]) Bilirubin.total [Presence] in Urine by Test strip Laboratory test res ult [facility] ([facility]) ID Date Data Source [id number] 12/13/2019 12:42:00 PM EDT [facility] Run: 12/13/19 1243 INTERFACED REPORT Name: Cassie Jiang Age/Sex: 64/F Location: [facility] Acct: [id number] Unit: [id number] Status: REG REF Room/Bed: Re12/11/19 Disch: Att Dr: Monica Bal MD Specimen #: [id number] Ordered : 12/11/1908/24/2102 Collected : 12/11/1908/25/1547 By: [...] rce(s) Supporting Document(s) ID Date Data Source [id number] 12/11/2019 03:48:00 PM EDT [facility] ([facility]) Name Value Range Interpretation Code Description Data Tashia rce(s) Supporting Document(s) Bacteria identified in Urine by Culture Laboratory test result [facility] ([facility]) <content> --------</content>
<content>Run: 12/13/19 1243 INTERFACED REPORT</content>
<content> </content>
<content>Name: Cassie Jiang Age/Sex: 64/F Location: LAB</content>
<content>Acct: [id number] Unit: [id number] Status: REG REF Room/Bed:</content>
<content>Re12/11/19 Disch: Att Dr: Monica Bal MD</content>
<content> </content>
<content></content>
<content>Specimen #: [id number] Ordered : 12/11/1908/24/2102</content>
<content>Collected : 12/11/1908/25/1547 By: EMERSON Received: 12/11/1908/24/2102 By: GMACDOUGAL</content>
<content>Source: URINE CATH Specimen Description:</content>
<content></content>
<content> [...] REPORT </content>
<content></content> ID Date Data Source [id number] 11/28/2019 12:00:00 AM EDT [facility] ([facility]) Name Value Range Interpretation Code Description Data Tashia rce(s) Supporting Document(s) ID Date Data Source [id number] 11/28/2019 12:00:00 AM EDT [facility] Name Value Range Interpretation Code Description Data Tashia rce(s) Supporting Document(s) SARS-CoV-2 [facility] This lab was ordered by [facility]-COVID19 and reported by [facility]. ID Date Data Source [id number] 11/28/2019 12:00:00 AM EDT [facility] ([facility]) Name Value Range Interpretation Code Description Data Tashia rce(s) Supporting Document(s) ID Date Data Source [id number] 11/28/2019 12:00:00 AM EDT [facility] ([facility]) Name Value Range Interpretation Code Description Data Tashia rce(s) Supporting Document(s) ID Date Data Source [id number] 11/28/2019 12:00:00 AM EDT [facility] ([facility]) Name Value Range Interpretation Code Description Data Tashia rce(s) Supporting Document(s) ID Date Data Source [id number] 11/28/2019 12:00:00 AM EDT [facility] ([facility]) Name Value Range Interpretation Code Description Data Tashia rce(s) Supporting Document(s) ID Date Data Source [id number] 11/28/2019 12:00:00 AM EDT [facility] ([facility]) Name Value Range Interpretation Code Description Data Tashia rce(s) Supporting Document(s) ID Date Data Source [id number] 11/28/2019 12:00:00 AM EDT [facility] ([facility]) Name Value Range Interpretation Code Description Data Tashia rce(s) Supporting Document(s) ID Date Data Source [id number] 11/28/2019 12:00:00 AM EDT [facility] ([facility]) Name Value Range Interpretation Code Description Data Tashia rce(s) Supporting Document(s) ID Date Data Source [id number] 11/28/2019 12:00:00 AM EDT [facility] ([facility]) Name Value Range Interpretation Code Description Data Tashia rce(s) Supporting Document(s) ID Date Data Source [id number] 11/28/2019 12:00:00 AM EDT [facility] ([facility]) Name Value Range Interpretation Code Description Data Tashia rce(s) Supporting Document(s) ID Date Data Source [id number] 11/28/2019 12:00:00 AM EDT [facility] ([facility]) Name Value Range Interpretation Code Description Data Tashia rce(s) Supporting Document(s) ID Date Data Source [id number] 11/27/2019 11:57:00 AM EDT [facility] ([facility]) Name Value Range Interpretation Code Description Data Tashia rce(s) Supporting Document(s) Protein [Presence] in Urine by Test strip Laboratory test result [facility] ([facility]) Glucose [Presence] in Urine Laboratory test result [facility] ([facility]) Ua Nitrite Laboratory test result [facility] ([facility]) Color of Urine Laboratory test result [facility] ([facility]) Ua Leuko Laboratory test result [facility] ([facility]) Blood [Presence] in Urine by Visual Laboratory test result [facility] ([facility]) Clarity of Urine Laboratory test result [facility] ([facility]) Ketones [Presence] in Urine by Test strip Laboratory test result [facility] ([facility]) Ua Specific [place] Laboratory test result 1.003-1.030 [facility] ([facility]) Urobilinogen [Mass/volume] in Urine by Test strip 0.2 E.U./dL 0.0-1.0 [facility] ([facility]) Bilirubin.total [Presence] in Urine by Test strip Laboratory test res ult [facility] ([facility]) pH of Urine by Test strip 5.5 5.0-7.5 [facility] ([facility]) ID Date Data Source [id number] 11/23/2019 12:00:00 AM EDT [facility] ([facility]) Name Value Range Interpretation Code Description Data Tashia rce(s) Supporting Document(s) ID Date Data Source [id number] 11/23/2019 12:00:00 AM EDT [facility] Name Value Range Interpretation Code Description Data Tashia rce(s) Supporting Document(s) SARS-CoV-2 [facility] This lab was ordered by [facility]-C[facility] and reported by [facility]. ID Date Data Source [id number] 11/23/2019 12:00:00 AM EDT [facility] ([facility]) Name Value Range Interpretation Code Description Data Tashia rce(s) Supporting Document(s) ID Date Data Source [id number] 11/23/2019 12:00:00 AM EDT [facility] ([facility]) Name Value Range Interpretation Code Description Data Tashia rce(s) Supporting Document(s) ID Date Data Source [id number] 11/23/2019 12:00:00 AM EDT [facility] ([facility]) Name Value Range Interpretation Code Description Data Tashia rce(s) Supporting Document(s) ID Date Data Source [id number] 11/23/2019 12:00:00 AM EDT [facility] ([facility]) Name Value Range Interpretation Code Description Data Tashia rce(s) Supporting Document(s) ID Date Data Source [id number] 11/23/2019 12:00:00 AM EDT [facility] ([facility]) Name Value Range Interpretation Code Description Data Tashia rce(s) Supporting Document(s) ID Date Data Source [id number] 11/23/2019 12:00:00 AM EDT [facility] ([facility]) Name Value Range Interpretation Code Description Data Tashia rce(s) Supporting Document(s) ID Date Data Source [id number] 11/23/2019 12:00:00 AM EDT [facility] ([facility]) Name Value Range Interpretation Code Description Data Tashia rce(s) Supporting Document(s) ID Date Data Source [id number] 11/23/2019 12:00:00 AM EDT [facility] ([facility]) Name Value Range Interpretation Code Description Data Tashia rce(s) Supporting Document(s) ID Date Data Source [id number] 11/23/2019 12:00:00 AM EDT [facility] ([facility]) Name Value Range Interpretation Code Description Data Tashia rce(s) Supporting Document(s) ID Date Data Source [id number] 11/23/2019 12:00:00 AM EDT [facility] ([facility]) Name Value Range Interpretation Code Description Data Tashia rce(s) Supporting Document(s) ID Date Data Source [id number] 11/23/2019 12:00:00 AM EDT [facility] ([facility]) Name Value Range Interpretation Code Description Data Tashia rce(s) Supporting Document(s) ID Date Data Source [id number] 11/02/2019 12:00:00 AM EDT [facility] Name Value Range Interpretation Code Description Data Tashia rce(s) Supporting Document(s) SARS-CoV-2 [facility] This lab was ordered by [facility]-C[facility] and reported by [facility]. ID Date Data Source [id number] 11/02/2019 12:00:00 AM EDT [facility] ([facility]) Name Value Range Interpretation Code Description Data Tashia rce(s) Supporting Document(s) ID Date Data Source [id number] 11/02/2019 12:00:00 AM EDT [facility] ([facility]) Name Value Range Interpretation Code Description Data Tashia rce(s) Supporting Document(s) ID Date Data Source [id number] 11/02/2019 12:00:00 AM EDT [facility] ([facility]) Name Value Range Interpretation Code Description Data Tashia rce(s) Supporting Document(s) ID Date Data Source [id number] 11/02/2019 12:00:00 AM EDT [facility] ([facility]) Name Value Range Interpretation Code Description Data Tashia rce(s) Supporting Document(s) ID Date Data Source [id number] 11/02/2019 12:00:00 AM EDT [facility] ([facility]) Name Value Range Interpretation Code Description Data Tashia rce(s) Supporting Document(s) ID Date Data Source [id number] 11/02/2019 12:00:00 AM EDT [facility] ([facility]) Name Value Range Interpretation Code Description Data Tashia rce(s) Supporting Document(s) ID Date Data Source [id number] 11/02/2019 12:00:00 AM EDT [facility] ([facility]) Name Value Range Interpretation Code Description Data Tashia rce(s) Supporting Document(s) ID Date Data Source [id number] 11/02/2019 12:00:00 AM EDT [facility] ([facility]) Name Value Range Interpretation Code Description Data Tashia rce(s) Supporting Document(s) ID Date Data Source [id number] 11/02/2019 12:00:00 AM EDT [facility] ([facility]) Name Value Range Interpretation Code Description Data Tashia rce(s) Supporting Document(s) ID Date Data Source [id number] 11/02/2019 12:00:00 AM EDT [facility] ([facility]) Name Value Range Interpretation Code Description Data Tashia rce(s) Supporting Document(s) ID Date Data Source [id number] 11/02/2019 12:00:00 AM EDT [facility] ([facility]) Name Value Range Interpretation Code Description Data Tashia rce(s) Supporting Document(s) ID Date Data Source [id number] 11/02/2019 12:00:00 AM EDT [facility] ([facility]) Name Value Range Interpretation Code Description Data Tashia rce(s) Supporting Document(s) ID Date Data Source [id number] 11/02/2019 12:00:00 AM EDT [facility] ([facility]) Name Value Range Interpretation Code Description Data Tashia rce(s) Supporting Document(s) ID Date Data Source [id number] 11/02/2019 12:00:00 AM EDT [facility] ([facility]) Name Value Range Interpretation Code Description Data Tashia rce(s) Supporting Document(s) ID Date Data Source [id number] 11/02/2019 12:00:00 AM EDT [facility] ([facility]) Name Value Range Interpretation Code Description Data Tashia rce(s) Supporting Document(s) Procedure Social History Code Duration Value Status Description Data Source(s ) Smoking 11/14/2020 12:00:00 AM EDT Never Smoker completed Never S moker eCW1 ([facility]) Smoking 11/14/2020 12:00:00 AM EDT Never Smoker completed Never S moker eCW1 ([facility]) Smoking 11/14/2020 12:00:00 AM EDT Never Smoker completed Never S moker eCW1 ([facility]) Smoking 11/14/2020 12:00:00 AM EDT Never Smoker completed Never S moker eCW1 ([facility]) Smoking 11/14/2020 12:00:00 AM EDT Never Smoker completed Never S moker eCW1 ([facility]) Smoking 11/14/2020 12:00:00 AM EDT Never Smoker completed Never S moker eCW1 ([facility]) Smoking 11/14/2020 12:00:00 AM EDT Never Smoker completed Never S moker eCW1 ([facility]) Smoking 11/14/2020 12:00:00 AM EDT Never Smoker completed Never S moker eCW1 ([facility]) Smoking 11/14/2020 12:00:00 AM EDT Never Smoker completed Never S moker eCW1 ([facility]) Smoking 11/14/2020 12:00:00 AM EDT Never Smoker completed Never S moker eCW1 ([facility]) Smoking 11/14/2020 12:00:00 AM EDT Never Smoker completed Never S moker eCW1 ([facility]) Smoking 11/14/2020 12:00:00 AM EDT Never Smoker completed Never S moker eCW1 ([facility]) Smoking 10/21/2020 12:00:00 AM EDT Never Smoker completed Never S moker eCW1 ([facility]) Smoking 10/21/2020 12:00:00 AM EDT Never Smoker completed Never S moker eCW1 ([facility]) Smoking 10/21/2020 12:00:00 AM EDT Never Smoker completed Never S moker eCW1 ([facility]) Smoking 10/21/2020 12:00:00 AM EDT Never Smoker completed Never S moker eCW1 ([facility]) Smoking 10/21/2020 12:00:00 AM EDT Never Smoker completed Never S moker eCW1 ([facility]) Smoking 10/08/2020 12:00:00 AM EDT Patient has never smoked co mpleted Patient has never smoked [facility] ([facility] ) Smoking 09/22/2020 12:00:00 AM EDT Never Smoker completed Never S moker eCW1 ([facility]) Smoking 09/22/2020 12:00:00 AM EDT Never Smoker completed Never S moker eCW1 ([facility]) Smoking 08/11/2020 12:00:00 AM EDT Never Smoked Cigarettes com pleted Never Smoked Cigarettes [facility] ([facility]) Smoking 07/04/2020 12:00:00 AM EDT Never Smoker completed Never S moker eCW1 ([facility]) Smoking 07/04/2020 12:00:00 AM EDT Never Smoker completed Never S moker eCW1 ([facility]) Smoking 07/04/2020 12:00:00 AM EDT Never Smoker completed Never S moker eCW1 ([facility]) Smoking 07/04/2020 12:00:00 AM EDT Never Smoker completed Never S moker eCW1 ([facility]) Smoking 07/04/2020 12:00:00 AM EDT Never Smoker completed Never S moker eCW1 ([facility]) Smoking 07/04/2020 12:00:00 AM EDT Never Smoker completed Never S moker eCW1 ([facility]) Smoking 07/04/2020 12:00:00 AM EDT Never Smoker completed Never S moker eCW1 ([facility]) Smoking 07/04/2020 12:00:00 AM EDT Never Smoker completed Never S moker eCW1 ([facility]) Smoking 07/04/2020 12:00:00 AM EDT Never Smoker completed Never S moker eCW1 ([facility]) Smoking 07/04/2020 12:00:00 AM EDT Never Smoker completed Never S moker eCW1 ([facility]) Smoking 07/04/2020 12:00:00 AM EDT Never Smoker completed Never S moker eCW1 ([facility]) Smoking 05/26/2020 12:00:00 AM EDT Never Smoker completed Never S moker eCW1 ([facility]) Smoking 05/26/2020 12:00:00 AM EDT Never Smoker completed Never S moker eCW1 ([facility]) Smoking 05/26/2020 12:00:00 AM EDT Never Smoker completed Never S moker eCW1 ([facility]) Smoking 05/26/2020 12:00:00 AM EDT Never Smoker completed Never S moker eCW1 ([facility]) Smoking 05/26/2020 12:00:00 AM EDT Never Smoker completed Never S moker eCW1 ([facility]) Smoking 05/26/2020 12:00:00 AM EDT Never Smoker completed Never S moker eCW1 ([facility]) Smoking 05/26/2020 12:00:00 AM EDT Never Smoker completed Never S moker eCW1 ([facility]) Smoking 05/26/2020 12:00:00 AM EDT Never Smoker completed Never S moker eCW1 ([facility]) Smoking 05/26/2020 12:00:00 AM EDT Never Smoker completed Never S moker eCW1 ([facility]) Smoking 05/26/2020 12:00:00 AM EDT Never Smoker completed Never S moker eCW1 ([facility]) Smoking 05/26/2020 12:00:00 AM EDT Never Smoker completed Never S moker eCW1 ([facility]) Smoking 05/12/2020 12:00:00 AM EST Never Smoker completed Never S moker eCW1 ([facility]) Smoking 05/12/2020 12:00:00 AM EST Never Smoker completed Never S moker eCW1 ([facility]) Smoking 05/12/2020 12:00:00 AM EST Never Smoker completed Never S moker eCW1 ([facility]) Vital Signs ID Date Data Source UNK Name Value Range Interpretation Code Description Data Source(s) Body temperature 96.9 [degF] 96.9 [degF] eCW1 ( [facility]) Respiratory rate 18 /min 18 /min eCW1 ([facility]) Heart rate 88 /min 88 /min eCW1 ([facility]) Body mass index (BMI) [Ratio] 35.80 kg/m2 35.80 kg/m2 eCW1 ([facility]) Body height 66 [in_i] 66 [in_i] eCW1 ([facility]) Body weight 100.61 kg 100.61 kg eCW1 ([facility]) Body weight 221.8 [lb_av] 221.8 [lb_av] eCW1 ([facility]) Diastolic blood pressure 78 mm[Hg] 78 mm[Hg] eCW1 ([facility]) Systolic blood pressure 122 mm[Hg] 122 mm[Hg] e CW1 ([facility]) Body temperature 96.9 [degF] 96.9 [degF] eCW1 ( [facility]) Respiratory rate 18 /min 18 /min eCW1 ([facility]) Heart rate 88 /min 88 /min eCW1 ([facility]) Body mass index (BMI) [Ratio] 35.80 kg/m2 35.80 kg/m2 eCW1 ([facility]) Body height 66 [in_i] 66 [in_i] eCW1 ([facility]) Body weight 100.61 kg 100.61 kg eCW1 ([facility]) Body weight 221.8 [lb_av] 221.8 [lb_av] eCW1 ([facility]) Diastolic blood pressure 78 mm[Hg] 78 mm[Hg] eCW1 ([facility]) Systolic blood pressure 122 mm[Hg] 122 mm[Hg] e CW1 ([facility]) Body temperature 97.4 [degF] 97.4 [degF] eCW1 ( [facility]) Respiratory rate 18 /min 18 /min eCW1 ([facility]) Heart rate 105 /min 105 /min eCW1 ([facility]) Body mass index (BMI) [Ratio] 36.44 kg/m2 36.44 kg/m2 W1 ([facility]) Body height 66 [in_i] 66 [in_i] eCW1 ([facility]) Body weight 102.42 kg 102.42 kg eCW1 ([facility]) Body weight 225.8 [lb_av] 225.8 [lb_av] eCW1 ([facility]) Diastolic blood pressure 62 mm[Hg] 62 mm[Hg] eCW1 ([facility]) Systolic blood pressure 128 mm[Hg] 128 mm[Hg] e CW1 ([facility]) Body surface area Derived from formula 2.11 m2 2.11 m2 MEDENT ([facility], ) Body weight 103.421 kg 103.421 kg MEDENT ([facility], ) [place] body weight 130 [lb_av] 130 [lb_av] MEDEN T ([facility], ) Body mass index (BMI) [Ratio] 36.8 kg/m2 36.8 k g/m2 MEDENT ([facility]) Body weight 228.00 [lb_av] 228.00 [lb_av] MEDEN T ([facility], ) Body height 66 [in_i] 66 [in_i] MEDENT ([facility], ) 5'6" Diastolic blood pressure 64 mm[Hg] 64 mm[Hg] MEDENT ([facility], ) Systolic blood pressure 112 mm[Hg] 112 mm[Hg] M EDREMY ([facility], ) Body height 66 [in_i] 66 [in_i] MARILIA ([facility]) Diastolic blood pressure 74 mm[Hg] 74 mm[Hg] MARILIA ([facility]) Body weight 224 [lb_av] 224 [lb_av] MARILIA ([facility]) Systolic blood pressure 128 mm[Hg] 128 mm[Hg] A THENA ([facility]) Body mass index (BMI) [Ratio] 36.2 kg/m2 36.2 k g/m2 MARILIA ([facility]) Body weight 224 [lb_av] 224 [lb_av] MARILIA ([facility]) Systolic blood pressure 128 mm[Hg] 128 mm[Hg] A THENA ([facility]) Body mass index (BMI) [Ratio] 36.2 kg/m2 36.2 k g/m2 MARILIA ([facility]) Body height 66 [in_i] 66 [in_i] MARILIA ([facility]) Diastolic blood pressure 74 mm[Hg] 74 mm[Hg] MARILIA ([facility]) Body weight 224 [lb_av] 224 [lb_av] MAR[facility]IA ([facility]) Systolic blood pressure 128 mm[Hg] 128 mm[Hg] A THENA ([facility]) Body mass index (BMI) [Ratio] 36.2 kg/m2 36.2 k g/m2 MARILIA ([facility]) Body height 66 [in_i] 66 [in_i] MARILIA ([facility]) Diastolic blood pressure 74 mm[Hg] 74 mm[Hg] MARILIA ([facility]) Body surface area Derived from formula 2.10 m2 2.10 m2 [facility] ([facility]) Body weight 101.606 kg 101.606 kg [facility] ([facility]) [place] body weight 130 [lb_av] 130 [lb_av] MEDEN T ([facility]) Body mass index (BMI) [Ratio] 36.2 kg/m2 36.2 k g/m2 [facility] ([facility]) Body weight 224.00 [lb_av] 224.00 [lb_av] [facility] Body height 66 [in_i] 66 [in_i] [facility] ([facility]) 5'6" Oxygen saturation in Arterial blood by Pulse oximetry 96 % 96 % [facility] ([facility]) Heart rate 95 /min 95 /min [facility] ([facility]) Diastolic blood pressure 84 mm[Hg] 84 mm[Hg] [facility] Systolic blood pressure 132 mm[Hg] 132 mm[Hg] [facility] Diastolic blood pressure 72 mm[Hg] 72 mm[Hg] eCW1 ([facility]) Systolic blood pressure 116 mm[Hg] 116 mm[Hg] e CW1 ([facility]) Body temperature 97.7 [degF] 97.7 [degF] eCW1 ( [facility]) Respiratory rate 18 /min 18 /min eCW1 ([facility]) Heart rate 91 /min 91 /min eCW1 ([facility]) Body mass index (BMI) [Ratio] 36.96 kg/m2 36.96 kg/m2 W1 ([facility]) Body height 66 [in_i] 66 [in_i] eCW1 ([facility]) Body weight 229 [lb_av] 229 [lb_av] eCW1 ([facility]) Systolic blood pressure 115 mm[Hg] 115 mm[Hg] A THENA ([facility]) Diastolic blood pressure 77 mm[Hg] 77 mm[Hg] MARILIA ([facility]) Systolic blood pressure 115 mm[Hg] 115 mm[Hg] A THENA ([facility]) Diastolic blood pressure 77 mm[Hg] 77 mm[Hg] MARILIA ([facility]) Systolic blood pressure 115 mm[Hg] 115 mm[Hg] A THENA ([facility]) Diastolic blood pressure 77 mm[Hg] 77 mm[Hg] MARILIA ([facility]) Systolic blood pressure 115 mm[Hg] 115 mm[Hg] A THENA ([facility]) Diastolic blood pressure 77 mm[Hg] 77 mm[Hg] MARILIA ([facility]) Systolic blood pressure 115 mm[Hg] 115 mm[Hg] A THENA ([facility]) Diastolic blood pressure 77 mm[Hg] 77 mm[Hg] MARILIA ([facility]) Body mass index (BMI) [Ratio] 35.2 kg/m2 35.2 k g/m2 MEDENT ([facility]) Body weight 218.00 [lb_av] 218.00 [lb_av] MEDEN T ([facility]) Body height 66 [in_i] 66 [in_i] MEDENT ([facility]) 5'6" Diastolic blood pressure 70 mm[Hg] 70 mm[Hg] eCW1 ([facility]) Systolic blood pressure 122 mm[Hg] 122 mm[Hg] e CW1 ([facility]) Body temperature 97.1 [degF] 97.1 [degF] eCW1 ( [facility]) Respiratory rate 20 /min 20 /min eCW1 ([facility]) Heart rate 94 /min 94 /min eCW1 ([facility]) Body mass index (BMI) [Ratio] 39.02 kg/m2 39.02 kg/m2 W1 ([facility]) Body height 66 [in_i] 66 [in_i] eCW1 ([facility]) Body weight 241.8 [lb_av] 241.8 [lb_av] eCW1 ([facility]) Diastolic blood pressure 68 mm[Hg] 68 mm[Hg] eCW1 ([facility]) Systolic blood pressure 110 mm[Hg] 110 mm[Hg] e CW1 ([facility]) Body temperature 98.3 [degF] 98.3 [degF] eCW1 ( [facility]) Respiratory rate 18 /min 18 /min eCW1 ([facility]) Heart rate 96 /min 96 /min eCW1 ([facility]) Body mass index (BMI) [Ratio] 36.86 kg/m2 36.86 kg/m2 eCW1 ([facility]) Body height 66 [in_i] 66 [in_i] eCW1 ([facility]) Body weight 228.4 [lb_av] 228.4 [lb_av] eCW1 ([facility]) Diastolic blood pressure 78 mm[Hg] 78 mm[Hg] eCW1 ([facility]) Systolic blood pressure 102 mm[Hg] 102 mm[Hg] e CW1 ([facility]) Body temperature 97.8 [degF] 97.8 [degF] eCW1 ( [facility]) Respiratory rate 18 /min 18 /min eCW1 ([facility]) Heart rate 95 /min 95 /min eCW1 ([facility]) Body mass index (BMI) [Ratio] 36.96 kg/m2 36.96 kg/m2 eCW1 ([facility]) Body height 66 [in_i] 66 [in_i] eCW1 ([facility]) Body weight 229 [lb_av] 229 [lb_av] eCW1 ([facility]) Systolic blood pressure 134 mm[Hg] 134 mm[Hg] A THENA ([facility]) Diastolic blood pressure 85 mm[Hg] 85 mm[Hg] MARILIA ([facility]) Systolic blood pressure 134 mm[Hg] 134 mm[Hg] A THENA ([facility]) Diastolic blood pressure 85 mm[Hg] 85 mm[Hg] MARILIA ([facility]) Systolic blood pressure 134 mm[Hg] 134 mm[Hg] A THENA ([facility]) Diastolic blood pressure 85 mm[Hg] 85 mm[Hg] MARILIA ([facility]) Systolic blood pressure 134 mm[Hg] 134 mm[Hg] A THENA ([facility]) Diastolic blood pressure 85 mm[Hg] 85 mm[Hg] MARILIA ([facility]) Systolic blood pressure 134 mm[Hg] 134 mm[Hg] A THENA ([facility]) Diastolic blood pressure 85 mm[Hg] 85 mm[Hg] MARILIA ([facility]) Systolic blood pressure 134 mm[Hg] 134 mm[Hg] A THENA ([facility]) Diastolic blood pressure 85 mm[Hg] 85 mm[Hg] MARILIA ([facility]) Body surface area Derived from formula 2.12 m2 2.12 m2 [facility] ([facility]) Body weight 103.874 kg 103.874 kg [facility] ([facility]) [place] body weight 130 [lb_av] 130 [lb_av] [facility] Body mass index (BMI) [Ratio] 37.0 kg/m2 37.0 k g/m2 [facility] ([facility]) Body weight 229.00 [lb_av] 229.00 [lb_av] [facility] Body height 66 [in_i] 66 [in_i] [facility] ([facility]) 5'6" Oxygen saturation in Arterial blood by Pulse oximetry 98 % 98 % [facility] ([facility]) Room Air Heart rate 88 /min 88 /min [facility] ([facility]) Diastolic blood pressure 76 mm[Hg] 76 mm[Hg] [facility] ([facility]) Systolic blood pressure 126 mm[Hg] 126 mm[Hg] [facility] Body surface area Derived from formula 2.12 m2 2.12 m2 [facility] ([facility]) Body weight 103.874 kg 103.874 kg [facility] ([facility]) [place] body weight 130 [lb_av] 130 [lb_av] MEDEN T ([facility]) Body mass index (BMI) [Ratio] 37.0 kg/m2 37.0 k g/m2 [facility] ([facility]) Body weight 229.00 [lb_av] 229.00 [lb_av] [facility] Body height 66 [in_i] 66 [in_i] [facility] ([facility]) 5'6" Oxygen saturation in Arterial blood by Pulse oximetry 98 % 98 % [facility] ([facility]) Room Air [place] body weight 130 [lb_av] 130 [lb_av] [facility]) Body height 66 [in_i] 66 [in_i] [facility] ([facility]) 5'6" Patient Treatment Plan of Care Planned Activity Planned Date Details Description Data Source (s) NITROFURANTOIN, MACROCRYSTALS 25 MG / Ni trofurantoin, Monohydrate 75 MG Oral Capsule [Macrobid] 11/17/2020 12:00:00 AM EDT eC W1 ([facility]) NITROFURANTOIN, MACROCRYSTALS 25 MG / Ni trofurantoin, Monohydrate 75 MG Oral Capsule [Macrobid] 11/17/2020 12:00:00 AM EDT eC W1 ([facility]) NITROFURANTOIN, MACROCRYSTALS 25 MG / Ni trofurantoin, Monohydrate 75 MG Oral Capsule [Macrobid] 11/17/2020 12:00:00 AM EDT eC W1 ([facility]) NITROFURANTOIN, MACROCRYSTALS 25 MG / Ni trofurantoin, Monohydrate 75 MG Oral Capsule [Macrobid] 11/17/2020 12:00:00 AM EDT eC W1 ([facility]) NITROFURANTOIN, MACROCRYSTALS 25 MG / Ni trofurantoin, Monohydrate 75 MG Oral Capsule [Macrobid] 11/17/2020 12:00:00 AM EDT eC W1 ([facility]) NITROFURANTOIN, MACROCRYSTALS 25 MG / Ni trofurantoin, Monohydrate 75 MG Oral Capsule [Macrobid] 11/17/2020 12:00:00 AM EDT eC W1 ([facility]) NITROFURANTOIN, MACROCRYSTALS 25 MG / Ni trofurantoin, Monohydrate 75 MG Oral Capsule [Macrobid] 11/17/2020 12:00:00 AM EDT eC W1 ([facility]) NITROFURANTOIN, MACROCRYSTALS 25 MG / Ni trofurantoin, Monohydrate 75 MG Oral Capsule [Macrobid] 11/17/2020 12:00:00 AM EDT eC W1 ([facility]) NITROFURANTOIN, MACROCRYSTALS 25 MG / Ni trofurantoin, Monohydrate 75 MG Oral Capsule [Macrobid] 11/17/2020 12:00:00 AM EDT eC W1 ([facility]) NITROFURANTOIN, MACROCRYSTALS 25 MG / Ni trofurantoin, Monohydrate 75 MG Oral Capsule [Macrobid] 11/17/2020 12:00:00 AM EDT eC W1 ([facility]) NITROFURANTOIN, MACROCRYSTALS 25 MG / Ni trofurantoin, Monohydrate 75 MG Oral Capsule [Macrobid] 11/17/2020 12:00:00 AM EDT eC W1 ([facility]) Mupirocin 0.02 MG/MG Topical Ointment 11/14/2020 12:00:00 AM EDT eCW1 ([facility]) ferric carboxymaltose 50 MG/ML Injectable Solution [In jectafer] 11/14/2020 12:00:00 AM EDT eCW1 ([facility]) Mupirocin 0.02 MG/MG Topical Ointment 11/14/2020 12:00:00 AM EDT eCW1 ([facility]) Mupirocin 0.02 MG/MG Topical Ointment 11/14/2020 12:00:00 AM EDT eCW1 ([facility]) ferric carboxymaltose 50 MG/ML Injectable Solution [In jectafer] 11/14/2020 12:00:00 AM EDT eCW1 ([facility]) ferric carboxymaltose 50 MG/ML Injectable Solution [In jectafer] 11/14/2020 12:00:00 AM EDT eCW1 ([facility]) Mupirocin 0.02 MG/MG Topical Ointment 11/14/2020 12:00:00 AM EDT eCW1 ([facility]) ferric carboxymaltose 50 MG/ML Injectable Solution [In jectafer] 11/14/2020 12:00:00 AM EDT eCW1 ([facility]) Mupirocin 0.02 MG/MG Topical Ointment 11/14/2020 12:00:00 AM EDT eCW1 ([facility]) ferric carboxymaltose 50 MG/ML Injectable Solution [In jectafer] 11/14/2020 12:00:00 AM EDT eCW1 ([facility]) Mupirocin 0.02 MG/MG Topical Ointment 11/14/2020 12:00:00 AM EDT eCW1 ([facility]) ferric carboxymaltose 50 MG/ML Injectable Solution [In jectafer] 11/14/2020 12:00:00 AM EDT eCW1 ([facility]) ferric carboxymaltose 50 MG/ML Injectable Solution [In jectafer] 11/14/2020 12:00:00 AM EDT eCW1 ([facility]) Mupirocin 0.02 MG/MG Topical Ointment 11/14/2020 12:00:00 AM EDT eCW1 ([facility]) Mupirocin 0.02 MG/MG Topical Ointment 11/14/2020 12:00:00 AM EDT eCW1 ([facility]) ferric carboxymaltose 50 MG/ML Injectable Solution [In jectafer] 11/14/2020 12:00:00 AM EDT eCW1 ([facility]) ferric carboxymaltose 50 MG/ML Injectable Solution [In jectafer] 11/14/2020 12:00:00 AM EDT eCW1 ([facility]) Mupirocin 0.02 MG/MG Topical Ointment 11/14/2020 12:00:00 AM EDT eCW1 ([facility]) ferric carboxymaltose 50 MG/ML Injectable Solution [In jectafer] 11/14/2020 12:00:00 AM EDT eCW1 ([facility]) Mupirocin 0.02 MG/MG Topical Ointment 11/14/2020 12:00:00 AM EDT eCW1 ([facility]) Mupirocin 0.02 MG/MG Topical Ointment 11/14/2020 12:00:00 AM EDT eCW1 ([facility]) ferric carboxymaltose 50 MG/ML Injectable Solution [In jectafer] 11/14/2020 12:00:00 AM EDT eCW1 ([facility]) Mupirocin 0.02 MG/MG Topical Ointment 11/14/2020 12:00:00 AM EDT eCW1 ([facility]) ferric carboxymaltose 50 MG/ML Injectable Solution [In jectafer] 11/14/2020 12:00:00 AM EDT eCW1 ([facility]) Blood Glucose Test - 11/03/2020 12:00:00 AM EDT eCW1 ([facility]) Lancets - 11/03/2020 12:00:00 AM EDT e CW1 ([facility]) Glucometer 11/03/2020 12:00:00 AM EDT e CW1 ([facility]) Blood Glucose Test - 11/03/2020 12:00:00 AM EDT eCW1 ([facility]) Glucometer 11/03/2020 12:00:00 AM EDT e CW1 ([facility]) Lancets - 11/03/2020 12:00:00 AM EDT e CW1 ([facility]) Blood Glucose Test - 11/03/2020 12:00:00 AM EDT eCW1 ([facility]) Lancets - 11/03/2020 12:00:00 AM EDT e CW1 ([facility]) Glucometer 11/03/2020 12:00:00 AM EDT e CW1 ([facility]) 60 ACTUAT Fluticasone propionate 0.25 MG /ACTUAT / salmeterol 0.05 MG/ACTUAT Dry Powder Inhaler [Advair] 07/07/2020 12:00:00 AM EDT eCW1 ([facility]) 60 ACTUAT Fluticasone propionate 0.25 MG /ACTUAT / salmeterol 0.05 MG/ACTUAT Dry Powder Inhaler [Advair] 07/07/2020 12:00:00 AM EDT eCW1 ([facility]) 60 ACTUAT Fluticasone propionate 0.25 MG /ACTUAT / salmeterol 0.05 MG/ACTUAT Dry Powder Inhaler [Advair] 07/07/2020 12:00:00 AM EDT eCW1 ([facility]) 60 ACTUAT Fluticasone propionate 0.25 MG /ACTUAT / salmeterol 0.05 MG/ACTUAT Dry Powder Inhaler [Advair] 07/07/2020 12:00:00 AM EDT eCW1 ([facility]) 60 ACTUAT Fluticasone propionate 0.25 MG /ACTUAT / salmeterol 0.05 MG/ACTUAT Dry Powder Inhaler [Advair] 07/07/2020 12:00:00 AM EDT eCW1 ([facility]) 60 ACTUAT Fluticasone propionate 0.25 MG /ACTUAT / salmeterol 0.05 MG/ACTUAT Dry Powder Inhaler [Advair] 07/07/2020 12:00:00 AM EDT eCW1 ([facility]) 60 ACTUAT Fluticasone propionate 0.25 MG /ACTUAT / salmeterol 0.05 MG/ACTUAT Dry Powder Inhaler [Advair] 07/07/2020 12:00:00 AM EDT eCW1 ([facility]) 60 ACTUAT Fluticasone propionate 0.25 MG /ACTUAT / salmeterol 0.05 MG/ACTUAT Dry Powder Inhaler [Advair] 07/07/2020 12:00:00 AM EDT eCW1 ([facility]) 60 ACTUAT Fluticasone propionate 0.25 MG /ACTUAT / salmeterol 0.05 MG/ACTUAT Dry Powder Inhaler [Advair] 07/07/2020 12:00:00 AM EDT eCW1 ([facility]) 60 ACTUAT Fluticasone propionate 0.25 MG /ACTUAT / salmeterol 0.05 MG/ACTUAT Dry Powder Inhaler [Advair] 07/07/2020 12:00:00 AM EDT eCW1 ([facility]) 60 ACTUAT Fluticasone propionate 0.25 MG /ACTUAT / salmeterol 0.05 MG/ACTUAT Dry Powder Inhaler [Advair] 07/07/2020 12:00:00 AM EDT eCW1 ([facility]) 60 ACTUAT Fluticasone propionate 0.25 MG /ACTUAT / salmeterol 0.05 MG/ACTUAT Dry Powder Inhaler [Advair] 07/07/2020 12:00:00 AM EDT eCW1 ([facility]) POLYETHYLENE GLYCOL 3350 142 MG/ML Oral Solution [Dawn lax] 05/26/2020 12:00:00 AM EDT eCW1 ([facility]) POLYETHYLENE GLYCOL 3350 142 MG/ML Oral Solution [Dawn lax] 05/26/2020 12:00:00 AM EDT eCW1 ([facility]) POLYETHYLENE GLYCOL 3350 142 MG/ML Oral Solution [Dawn lax] 05/26/2020 12:00:00 AM EDT eCW1 ([facility]) POLYETHYLENE GLYCOL 3350 142 MG/ML Oral Solution [Dawn lax] 05/26/2020 12:00:00 AM EDT eCW1 ([facility]) POLYETHYLENE GLYCOL 3350 142 MG/ML Oral Solution [Dawn lax] 05/26/2020 12:00:00 AM EDT eCW1 ([facility]) POLYETHYLENE GLYCOL 3350 142 MG/ML Oral Solution [Dawn lax] 05/26/2020 12:00:00 AM EDT eCW1 ([facility]) POLYETHYLENE GLYCOL 3350 142 MG/ML Oral Solution [Dawn lax] 05/26/2020 12:00:00 AM EDT eCW1 ([facility]) POLYETHYLENE GLYCOL 3350 142 MG/ML Oral Solution [Dawn lax] 05/26/2020 12:00:00 AM EDT eCW1 ([facility]) POLYETHYLENE GLYCOL 3350 142 MG/ML Oral Solution [Dawn lax] 05/26/2020 12:00:00 AM EDT eCW1 ([facility]) POLYETHYLENE GLYCOL 3350 142 MG/ML Oral Solution [Dawn lax] 05/26/2020 12:00:00 AM EDT eCW1 ([facility]) Cyclobenzaprine hydrochloride 10 MG Oral Tablet 02/07/2020 12:00:00 AM EST eCW1 ([facility]) Cyclobenzaprine hydrochloride 10 MG Oral Tablet 02/07/2020 12:00:00 AM EST eCW1 ([facility]) Cyclobenzaprine hydrochloride 10 MG Oral Tablet 02/07/2020 12:00:00 AM EST eCW1 ([facility]) Cyclobenzaprine hydrochloride 5 MG Oral Tablet 02/07/2020 12:00:00 AM EST eCW1 ([facility]) Amitriptyline Hydrochloride 25 MG Oral Tablet 12/06/2019 12:00:00 A M EDT eCW1 ([facility]) Amitriptyline Hydrochloride 25 MG Oral Tablet 12/06/2019 12:00:00 A M EDT eCW1 ([facility]) Amitriptyline Hydrochloride 25 MG Oral Tablet 12/06/2019 12:00:00 A M EDT eCW1 ([facility]) Amitriptyline Hydrochloride 25 MG Oral Tablet 12/06/2019 12:00:00 A M EDT eCW1 ([facility]) Amitriptyline Hydrochloride 25 MG Oral Tablet 12/06/2019 12:00:00 A M EDT eCW1 ([facility]) Amitriptyline Hydrochloride 25 MG Oral Tablet 12/06/2019 12:00:00 A M EDT eCW1 ([facility]) Alprazolam 1 MG Oral Tablet [facility] ([facility]) Amoxicillin 500 MG / Clavulanate 125 MG Oral Tablet [facility] ([facility]) cefdinir 300 MG Oral Capsule [facility] ([facility]) Ciprofloxacin 250 MG Oral Tablet [facility] ([facility]) Doxycycline Monohydrate 100 MG Oral Capsule [facility] ([facility]) 0.3 ML Enoxaparin sodium 100 MG/ML Prefilled Syringe [facility] ([facility]) Estradiol 0.1 MG/ML Vaginal Cream MAR[facility] ([facility]) glimepiride 1 MG Oral Tablet [facility] ([facility]) glimepiride 2 MG Oral Tablet [facility] ([facility]) Methylprednisolone 2 MG Oral Tablet [Medrol] [facility] ([facility]) Methylprednisolone 4 MG Oral Tablet [facility] ([facility]) Oxycodone Hydrochloride 5 MG Oral Tablet [facility] ([facility]) Acetaminophen 325 MG / Oxycodone Hydrochloride 5 MG Oral Tablet [facility] ([facility]) Prednisone 20 MG Oral Tablet [facility] ([facility]) tramadol hydrochloride 50 MG Oral Tablet [facility] ([facility]) glimepiride 1 MG Oral Tablet [facility] ([facility]) 0.3 ML Enoxaparin sodium 100 MG/ML Prefilled Syringe [facility] ([facility]) Amoxicillin 500 MG / Clavulanate 125 MG Oral Tablet [facility] ([facility]) glimepiride 2 MG Oral Tablet [facility] ([facility]) Ciprofloxacin 250 MG Oral Tablet [facility] ([facility]) Estradiol 0.1 MG/ML Vaginal Cream [facility] ([facility]) Doxycycline Monohydrate 100 MG Oral Capsule [facility] ([facility]) Methylprednisolone 2 MG Oral Tablet [Medrol] [facility] ([facility]) Methylprednisolone 4 MG Oral Tablet [facility] ([facility]) tramadol hydrochloride 50 MG Oral Tablet [facility] ([facility]) Oxycodone Hydrochloride 5 MG Oral Tablet [facility] ([facility]) Acetaminophen 325 MG / Oxycodone Hydrochloride 5 MG Oral Tablet [facility] ([facility]) Alprazolam 1 MG Oral Tablet [facility] ([facility]) Prednisone 20 MG Oral Tablet [facility] [facility]) cefdinir 300 MG Oral Capsule [facility] ([facility]) Ciprofloxacin 250 MG Oral Tablet [facility] ([facility]) Amoxicillin 500 MG / Clavulanate 125 MG Oral Tablet [facility] ([facility] [place]) Doxycycline Monohydrate 100 MG Oral Capsule [facility] ([facility] [place]) 0.3 ML Enoxaparin sodium 100 MG/ML Prefilled Syringe [facility] ([facility] [place]) Estradiol 0.1 MG/ML Vaginal Cream [facility] ([facility] [place]) Acetaminophen 325 MG / Oxycodone Hydrochloride 5 MG Oral Tablet [facility] ([facility]) Methylprednisolone 2 MG Oral Tablet [Medrol] [facility] ([facility]) Prednisone 20 MG Oral Tablet [facility] ([facility]) Methylprednisolone 4 MG Oral Tablet [facility] ([facility]) Oxycodone Hydrochloride 5 MG Oral Tablet [facility] ([facility] [place]) tramadol hydrochloride 50 MG Oral Tablet [facility] ([facility]) Alprazolam 1 MG Oral Tablet [facility] ([facility]) cefdinir 300 MG Oral Capsule [facility] ([facility]) Amoxicillin 500 MG / Clavulanate 125 MG Oral Tablet [facility] ([facility]) Ciprofloxacin 250 MG Oral Tablet [facility] ([facility]) tramadol hydrochloride 50 MG Oral Tablet [facility] ([facility] [place]) Doxycycline Monohydrate 100 MG Oral Capsule [facility] ([facility] [place]) 0.3 ML Enoxaparin sodium 100 MG/ML Prefilled Syringe [facility] ([facility]) Estradiol 0.1 MG/ML Vaginal Cream [facility] ([facility] [place]) Methylprednisolone 2 MG Oral Tablet [Medrol] [facility] ([facility] [place]) Methylprednisolone 4 MG Oral Tablet [facility] ([facility]) Oxycodone Hydrochloride 5 MG Oral Tablet [facility] ([facility]) Acetaminophen 325 MG / Oxycodone Hydrochloride 5 MG Oral Tablet [facility] ([facility]) Prednisone 20 MG Oral Tablet [facility] ([facility]) Doxycycline Monohydrate 100 MG Oral Capsule [facility] ([facility] [place]) 0.3 ML Enoxaparin sodium 100 MG/ML Prefilled Syringe [facility] ([facility]) Alprazolam 1 MG Oral Tablet [facility] ([facility] [place]) Estradiol 0.1 MG/ML Vaginal Cream [facility] ([facility]) Amoxicillin 500 MG / Clavulanate 125 MG Oral Tablet [facility] ([facility] [place]) Methylprednisolone 2 MG Oral Tablet [Medrol] [facility] ([facility] [place]) Oxycodone Hydrochloride 5 MG Oral Tablet [facility] ([facility] [place]) Acetaminophen 325 MG / Oxycodone Hydrochloride 5 MG Oral Tablet [facility] ([facility] [place]) cefdinir 300 MG Oral Capsule [facility] ([facility] [place]) Ciprofloxacin 250 MG Oral Tablet [facility] ([facility]) Methylprednisolone 4 MG Oral Tablet [facility] ([facility]) Alprazolam 1 MG Oral Tablet [facility] ([facility]) Amoxicillin 500 MG / Clavulanate 125 MG Oral Tablet [facility] ([facility] [place]) cefdinir 300 MG Oral Capsule [facility] ([facility] Ciprofloxacin 250 MG Oral Tablet [facility] ([facility] [place]) Doxycycline Monohydrate 100 MG Oral Capsule [facility] ([facility] [place]) 0.3 ML Enoxaparin sodium 100 MG/ML Prefilled Syringe [facility] ([facility] [place]) Estradiol 0.1 MG/ML Vaginal Cream [facility] ([facility] [place]) Methylprednisolone 2 MG Oral Tablet [Medrol] [facility] ([facility] [place]) Methylprednisolone 4 MG Oral Tablet [facility] ([facility]) Oxycodone Hydrochloride 5 MG Oral Tablet [facility] ([facility] [place]) Acetaminophen 325 MG / Oxycodone Hydrochloride 5 MG Oral Tablet [facility] ([facility] [place]) Prednisone 20 MG Oral Tablet [facility] ([facility] [place]) tramadol hydrochloride 50 MG Oral Tablet [facility] ([facility] [place]) Prednisone 20 MG Oral Tablet [facility] ([facility] [place]) tramadol hydrochloride 50 MG Oral Tablet [facility] ([facility]) Ciprofloxacin 250 MG Oral Tablet [facility] ([facility]) Amoxicillin 500 MG / Clavulanate 125 MG Oral Tablet [facility] ([facility] [place]) glimepiride 1 MG Oral Tablet [facility] ([facility]) Cyclobenzaprine hydrochloride 5 MG Oral Tablet [facility] ([facility] [place]) Methylprednisolone 2 MG Oral Tablet [Medrol] [facility] ([facility] [place]) Methylprednisolone 4 MG Oral Tablet [facility] ([facility] [place]) Doxycycline Monohydrate 100 MG Oral Capsule [facility] ([facility] [place]) 0.3 ML Enoxaparin sodium 100 MG/ML Prefilled Syringe [facility] ([facility] [place]) Estradiol 0.1 MG/ML Vaginal Cream [facility] ([facility] [place]) Oxycodone Hydrochloride 5 MG Oral Tablet [facility] ([facility] [place]) Acetaminophen 325 MG / Oxycodone Hydrochloride 5 MG Oral Tablet [facility] ([facility] [place]) Prednisone 20 MG Oral Tablet [facility] ([facility] [place]) tramadol hydrochloride 50 MG Oral Tablet [facility] ([facility] [place]) Doxycycline Monohydrate 100 MG Oral Capsule [facility] ([facility]) 0.3 ML Enoxaparin sodium 100 MG/ML Prefilled Syringe [facility] ([facility] [place]) Oxycodone Hydrochloride 5 MG Oral Tablet [facility] ([facility] [place]) Acetaminophen 325 MG / Oxycodone Hydrochloride 5 MG Oral Tablet [facility] ([facility]) Prednisone 20 MG Oral Tablet [facility] ([facility] [place]) tramadol hydrochloride 50 MG Oral Tablet [facility] ([facility] [place]) Amoxicillin 500 MG / Clavulanate 125 MG Oral Tablet [facility] ([facility] [place]) Ciprofloxacin 250 MG Oral Tablet [facility] ([facility] [place]) Cyclobenzaprine hydrochloride 5 MG Oral Tablet [facility] ([facility] [place]) Estradiol 0.1 MG/ML Vaginal Cream [facility] ([facility] [place]) glimepiride 1 MG Oral Tablet [facility] ([facility] Methylprednisolone 2 MG Oral Tablet [Medrol] [facility] ([facility] [place]) Methylprednisolone 4 MG Oral Tablet [facility] ([facility] [place]) Doxycycline Monohydrate 100 MG Oral Capsule [facility] ([facility] [place]) Amoxicillin 500 MG / Clavulanate 125 MG Oral Tablet [facility] ([facility] [place]) Estradiol 0.1 MG/ML Vaginal Cream [facility] ([facility] [place]) Ciprofloxacin 250 MG Oral Tablet [facility] ([facility] [place]) 0.3 ML Enoxaparin sodium 100 MG/ML Prefilled Syringe [facility] ([facility]) tramadol hydrochloride 50 MG Oral Tablet [facility] ([facility]) Oxycodone Hydrochloride 5 MG Oral Tablet [facility] ([facility] [place]) Acetaminophen 325 MG / Oxycodone Hydrochloride 5 MG Oral Tablet [facility] ([facility] [place]) Prednisone 20 MG Oral Tablet [facility] ([facility] [place]) glimepiride 1 MG Oral Tablet [facility] ([facility] [place]) glimepiride 2 MG Oral Tablet [facility] ([facility] [place]) Methylprednisolone 2 MG Oral Tablet [Medrol] [facility] ([facility] [place]) Methylprednisolone 4 MG Oral Tablet [facility] ([facility]) Estradiol 0.1 MG/ML Vaginal Cream [facility] ([facility] [place]) Amoxicillin 500 MG / Clavulanate 125 MG Oral Tablet [facility] ([facility]) Ciprofloxacin 250 MG Oral Tablet [facility] ([facility] [place]) Doxycycline Monohydrate 100 MG Oral Capsule [facility] ([facility] [place]) 0.3 ML Enoxaparin sodium 100 MG/ML Prefilled Syringe [facility] ([facility]) glimepiride 1 MG Oral Tablet [facility] ([facility]) glimepiride 2 MG Oral Tablet [facility] ([facility]) Oxycodone Hydrochloride 5 MG Oral Tablet [facility] ([facility] [place]) Acetaminophen 325 MG / Oxycodone Hydrochloride 5 MG Oral Tablet [facility] ([facility]) Prednisone 20 MG Oral Tablet [facility] ([facility] [place]) tramadol hydrochloride 50 MG Oral Tablet [facility] ([facility] [place]) Methylprednisolone 2 MG Oral Tablet [Medrol] [facility] ([facility] [place]) Methylprednisolone 4 MG Oral Tablet [facility] ([facility] [place])
--- OUTSIDE RECORDS SUMMARY | 2020-12-25 19:25 | CCD ---
Author Author [facility] Address Unknown Phone Unavailable Care Team Providers Care Ticket Writer Name Role Phone Jean-Pierre Ling MD Unavailable [...] Gao MD Unavailable Unavailable Jumalon, M Mar MAINTENANCE CARPENTER Unavailable Unavailable Jumalon, M Mar MAINTENANCE CARPENTER Unavailable Unavailable Jumalon, M Mar MAINTENANCE CARPENTER Unavailable Unavailable Jumalon, M Mar MAINTENANCE CARPENTER Unavailable Unavailable Jumalon, M Mar MAINTENANCE CARPENTER Unavailable Unavailable Jumalon, M Mar MAINTENANCE CARPENTER Unavailable Unavailable Jumalon, M Mar MAINTENANCE CARPENTER Unavailable Unavailable Jumalon, M Mar MAINTENANCE CARPENTER Unavailable Unavailable Jumalon, M Mar MAINTENANCE CARPENTER Unavailable Unavailable Jumalon, M Mar MAINTENANCE CARPENTER Unavailable Unavailable Jumalon, M Mar MAINTENANCE CARPENTER Unavailable Unavailable Jumalon, M Mar MAINTENANCE CARPENTER Unavailable Unavailable Jumalon, M Mar MAINTENANCE CARPENTER Unavailable Unavailable Jumalon, M Mar MAINTENANCE CARPENTER Unavailable Unavailable Jumalon, M Mar MAINTENANCE CARPENTER Unavailable Unavailable Jumalon, M Mar MAINTENANCE CARPENTER Unavailable Unavailable Jumalon, M Mar MAINTENANCE CARPENTER Unavailable Unavailable Jumalon, M Mar MAINTENANCE CARPENTER Unavailable Unavailable Jumalon, M Mar MAINTENANCE CARPENTER Unavailable Unavailable Jumalon, M Mar MAINTENANCE CARPENTER Unavailable Unavailable Jumalon, M Mar MAINTENANCE CARPENTER Unavailable Unavailable Jumalon, M Mar MAINTENANCE CARPENTER Unavailable Unavailable Jumalon, M Mar MAINTENANCE CARPENTER Unavailable Unavailable Jumalon, M Mar MAINTENANCE CARPENTER Unavailable Unavailable Jumalon, M Mar MAINTENANCE CARPENTER Unavailable Unavailable Jumalon, M Mar MAINTENANCE CARPENTER Unavailable Unavailable Jumalon, M Mar MAINTENANCE CARPENTER Unavailable Unavailable Jumalon, M Mar MAINTENANCE CARPENTER Unavailable Unavailable Jumalon, M Mar MAINTENANCE CARPENTER Unavailable Unavailable Jumalon, M Mar MAINTENANCE CARPENTER Unavailable Unavailable Rechlin, P Andrea DO Unavailable [...] is protected by Article 27-F of the [facility] Public Health law. If you continue you may have access to information: Regarding HIV / AIDS; Provided by facilities licensed or operated by the [facility] Office of Mental Health; or Provided by the [facility] Office for People With Developmental Disabilities. If such information is present, then the following [facility] mandated warning applies: This information has [...] law may result in a fine or alf sentence or both. A general authorization for the release of medical or other information is NOT sufficient authorization for further disc losure. Family History Family Member Name Family Member Gender Family Member Status Date o f Status Description Data Source(s) Unknown Unknown Problem MEDENT ([facility], ) sister age 48 and another age 59 alive Encounters Encounter Providers Location Date Indications Data Source(s ) Unknown [address] [facility] [id number] 12/19/2020 12:00:00 AM EDT [facility] Unknown [address] [facility] Y [address] 12/19/2020 12:00:00 AM EDT eCW1 ([facility]) Unknown [address] [facility] Y [address] 12/19/2020 12:00:00 AM EDT eCW1 ([facility]) Unknown [address] [facility] Y [address] 12/16/2020 12:00:00 AM EDT eCW1 ([facility]) Unknown [address] [facility] Y [address] 12/15/2020 12:00:00 AM EDT eCW1 ([facility] [place]) Unknown [address] [facility] Y [address] 12/05/2020 12:00:00 AM EDT eCW1 ([facility] [place]) Unknown [address] [facility] Y [address] 11/18/2020 12:00:00 AM EDT eCW1 ([facility]) Unknown [address] [facility] Y [address] 11/17/2020 12:00:00 AM EDT eCW1 ([facility]) [place]patient [address] [facility] [address] 11/14/2020 12:00:00 AM EDT eCW1 ([facility]) Unknown [address] [facility] [address] 11/14/2020 12:00:00 AM EDT eCW1 ([facility]) Unknown [address] [facility] [address] 11/14/2020 12:00:00 AM EDT eCW1 ([facility]) Unknown [address] [facility] [place] [address] 11/13/2020 12:00:00 AM EDT eCW1 ([facility] Unknown [address] [facility] Y [address] 11/04/2020 12:00:00 AM EDT eCW1 ([facility]) Unknown [address] [facility] Y [address] 11/03/2020 12:00:00 AM EDT eCW1 ([facility]) Oleg Ling MD: [address] [address], [facility] [place] [address], Ph. Attender: Oleg Ling MD [place] - [facility] - Main Office 10/24/2020 12:00:00 AM EDT MARILIA ([facility]) Office Visit Attender: Bren RODRIGES Physical Therapy 01:15:00 PM EDT MEDENT ([facility]) [place]patient [address] [facility] [address] 10/21/2020 12:00:00 AM EDT eCW1 ([facility]) Unknown [address] [facility] Y [address] 10/21/2020 12:00:00 AM EDT eCW1 ([facility]) Oleg Ling MD: [address], [address] [place], [place] [address], Ph. [phone] Attender: Oleg Ling MD [place] - [facility] 10/20/2020 12:00:00 AM EDT MARILIA ([facility]) Oleg Ling MD: [address], [place] [address], Ph. [phone] Attender: Oleg Ling MD [place] - [facility] 10/20/2020 12:00:00 AM EDT MARILIA ([facility]) Outpatient Attender: Michael Glover/Riri/Angel adame/Avery 10/15/2020 01:00:00 PM EDT EVELYNE ([facility]ikel, ) Mar Smith, INDEPENDENT INSURANCE ADJUSTER: [address], [place] [address], Ph. [facility]: [facility] 10/15/2020 12:00:00 AM EDT ATHE NA ([facility]) Mar Smith, INDEPENDENT INSURANCE ADJUSTER: [address], [place] [address], Ph. Attender: Mar Diyadelmis [facility] 10/15/2020 12:00:00 AM EDT ATHE NA ([facility]) Mar Smith, INDEPENDENT INSURANCE ADJUSTER: [address], [place] [address], Ph. Attender: Mar Diyadelmis [facility] 10/15/2020 12:00:00 AM EDT ATHE NA ([facility]) Outpatient Attender: Andrea Sterling/Riri/Mli/Joe ndl 10/08/2020 09:30:00 AM EDT MEDENT ([facility]) Unknown [address] [facility] [address] 10/07/2020 12:00:00 AM EDT eCW1 ([facility]) Outpatient [address] [facility] [place] [address] 09/22/2020 12:00:00 AM EDT eCW1 ([facility]) Unknown [address] [facility] [place] [address] 09/04/2020 12:00:00 AM EDT eCW1 ([facility]) Unknown [address] [facility] [place] [address] 08/28/2020 12:00:00 AM EDT eCW1 ([facility]) Unknown [address] [facility] [place] [address] 08/27/2020 12:00:00 AM EDT eCW1 ([facility] Unknown [address] [facility] [place] [address] 08/25/2020 12:00:00 AM EDT eCW1 ([facility]) Unknown [address] [facility] [place] [address] 08/14/2020 12:00:00 AM EDT eCW1 ([facility]) Outpatient Attender: Amira Garg 08/11/2020 11:00:00 PM E DT [facility] Outpatient Attender: Amira Garg Sharri/ [facility] 04:00:00 PM EDT MEDENT ([facility] [place]) Oleg Ling MD: [address] [address], [facility] [place] [address], Ph. [phone] Attender: Oleg CHAIREZ - [facility] - Main Office 08/11/2020 12:00:00 AM EDT MARILIA ([facility]) Oleg Ling MD: [address], [address], [place] [address], Ph. [phone] Attender: Oleg Ling MD [place] - [facility] 08/11/2020 12:00:00 AM EDT MARILIA ([facility]) Oleg Ling MD: [address], [address], [place] [address], Ph. [phone] Attender: Oleg Ling MD [place] - [facility] 08/11/2020 12:00:00 AM EDT MARIILA ([facility]) Oleg Ling MD: [address], [place] [address], Ph. [phone] Attender: Oleg Ling MD [place] - [facility] 08/11/2020 12:00:00 AM EDT MARILIA ([facility]) Mar Smith, INDEPENDENT INSURANCE ADJUSTER: [address], [place] [address], Ph. Attender: Mar Smith [facility] - [facility] 08/06/2020 12:00:00 AM EDT ATHMarichuy FLORES ([facility]) Mar Smith, INDEPENDENT INSURANCE ADJUSTER: [address], [place] [address], Ph. Attender: Mar Smith [facility] - [facility] 08/06/2020 12:00:00 AM EDT VANCE FLORES ([facility]) Mar Smith, INDEPENDENT INSURANCE ADJUSTER: [address], [place] [address], Ph. Attender: Mar Smith [facility] - [facility] 08/06/2020 12:00:00 AM EDT ATHE NA ([facility]) Mar Smith, INDEPENDENT INSURANCE ADJUSTER: [address], [address], [place] [address], Ph. Attender: Mar Smith [facility] - [facility] - [facility] Office 08/06/2020 12:00:00 AM EDT ATHE NA ([facility]) Mar Smith, INDEPENDENT INSURANCE ADJUSTER: [address], [address], [place] [address], Ph. Attender: Mar Smith [facility] - [facility] - [facility] Office 08/06/2020 12:00:00 AM EDT ATHMarichuy NA ([facility]) Office Visit Attender: Bren RODRIGES Physical Therapy 10:30:00 AM EDT MEDENT ([facility]) Outpatient Attender: Monica Bal MD 07/14/2020 11:00:00 PM EDT [facility] Outpatient Attender: Monica Bal MD [place]/ Steffen torres 07/14/2020 03:30:00 PM EDT MEDENT [facility] Unknown [address] [facility] [address] 07/08/2020 12:00:00 AM EDT eCW1 ([facility]) Unknown [address] [facility] [address] 07/07/2020 12:00:00 AM EDT eCW1 ([facility]) Outpatient [address] [facility] [address] 07/04/2020 12:00:00 AM EDT eCW1 ([facility]) Unknown [address] [facility] [address] 07/04/2020 12:00:00 AM EDT eCW1 ([facility]) Unknown [address] [facility] [place] [address] 07/04/2020 12:00:00 AM EDT eCW1 ([facility]) Unknown [address] [facility] [address] 07/04/2020 12:00:00 AM EDT eCW1 ([facility]) Unknown [address] [facility] [place] [address] 07/03/2020 12:00:00 AM EDT eCW1 ([facility]) Unknown [address] [facility] [address] 06/30/2020 12:00:00 AM EDT eCW1 ([facility]) Unknown [address] [facility] [address] 06/25/2020 12:00:00 AM EDT eCW1 ([facility]) Unknown [address] [facility] [place] [address] 06/19/2020 12:00:00 AM EDT eCW1 ([facility]) Unknown [address] [facility] [place] [address] 06/19/2020 12:00:00 AM EDT eCW1 ([facility]) Unknown [address] [facility] [place] [address] 06/17/2020 12:00:00 AM EDT eCW1 ([facility]) Unknown [address] [facility] [place] [address] 06/13/2020 12:00:00 AM EDT eCW1 ([facility]) Unknown [address] [facility] [address] 06/09/2020 12:00:00 AM EDT eCW1 ([facility]) Unknown [address] [facility] [address] 06/04/2020 12:00:00 AM EDT eCW1 ([facility]) Unknown [address] [facility] [address] 05/26/2020 12:00:00 AM EDT eCW1 [facility] [place] [address] [facility] [place] [address] 05/26/2020 12:00:00 AM EDT eCW1 ([facility] Unknown [address] [facility] [address] 05/20/2020 12:00:00 AM EDT eCW1 ([facility] Unknown [address] [facility] [address] 05/15/2020 12:00:00 AM EST eCW1 ([facility] [place] [address] [facility] [place] [address] 05/12/2020 12:00:00 AM EST eCW1 ([facility] [place]) Mar Smith, INDEPENDENT INSURANCE ADJUSTER: [address], [place] [address], Ph. Attender: Mar Smith [facility] 04/15/2020 12:00:00 AM EST ATHE NA ([facility]) Mar Smith, INDEPENDENT INSURANCE ADJUSTER: [address], [place] [address], Ph. Attender: Mar Smith [facility] 04/15/2020 12:00:00 AM EST ATHE NA ([facility]) Mar Smith, INDEPENDENT INSURANCE ADJUSTER: [address], [place] [address], Ph. Attender: Mar Smith [facility] 04/15/2020 12:00:00 AM EST ATHE NA ([facility]) Mar Smith, INDEPENDENT INSURANCE ADJUSTER: [address], [place] [address], Ph. Attender: Mar Smith [facility] - [facility] 04/15/2020 12:00:00 AM EST ATHE NA ([facility]) Mar Smith, INDEPENDENT INSURANCE ADJUSTER: [address], [place] [address], Ph. Attender: Mar Smith [facility] - [facility] 04/15/2020 12:00:00 AM EST ATHE NA ([facility]) Mar Smith, INDEPENDENT INSURANCE ADJUSTER: [address], [place] [address], Ph. 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 Attender: Oleg Ling MD [place] - [facility] 03/31/2020 12:00:00 AM EST MARILIA ([facility]) Oleg Ling MD: [address], [place] [address], Ph. Attender: Oleg Ling MD [facility] 03/31/2020 12:00:00 AM EST MARILIA ([facility]) Oleg Ling MD: [address], [place] [address], Ph. Attender: Oleg CHAIREZ - [facility] 03/31/2020 12:00:00 AM EST MARILIA ([facility]) Oleg Ling MD: [address], [place] [address], Ph. Attender: Oleg CHAIREZ - [facility] 03/31/2020 12:00:00 AM EST MARILIA ([facility]) Oleg Ling MD: [address], [place] [address], Ph. Attender: Oleg CHAIREZ - [facility] 03/31/2020 12:00:00 AM EST MARILIA ([facility]) Oleg Ling MD: [address], [place] [address], Ph. Attender: Oleg CHAIREZ - [facility] 03/31/2020 12:00:00 AM EST MARILIA ([facility]) Oleg Ling MD: [address], [place] [address], Ph. Attender: Oleg CHAIREZ - [facility] 03/31/2020 12:00:00 AM EST MARILIA ([facility]) OFFICE OUTPATIENT VISIT 15 MINUTES Attender: Bren RODRIGES Physical Therapy 03/27/2020 12:45:00 PM EST MEDENT ([facility]) Oleg Ling MD: [address], [place] [address], Ph. [phone] Attender: Oleg CHAIREZ - [facility] Office 03/26/2020 12:00:00 AM EST MARILIA ([facility]) Oleg Ling MD: [address], [address], [place] [address], Ph. [phone] Attender: Oleg Ling MD [place] - [facility] 03/26/2020 12:00:00 AM EST MARILIA ([facility]) Oleg Ling MD: [address], [address], [place] [address], Ph. [phone] Attender: Oleg Ling MD [place] - [facility] 03/26/2020 12:00:00 AM EST MARILIA ([facility]) Oleg Ling MD: [address], [address], [place] [address], Ph. [phone] Attender: Oleg Ling MD [place] - [facility] 03/26/2020 12:00:00 AM EST MARILIA ([facility]) Oleg Ling MD: [address], [address], [place] [address], Ph. [phone] Attender: Oleg Ling MD [place] - [facility] 03/26/2020 12:00:00 AM EST MARILIA ([facility]) Oleg Ling MD: [address], [address], [place] [address], Ph. [phone] Attender: Oleg Ling MD [place] - [facility] 03/26/2020 12:00:00 AM EST MARILIA ([facility]) Oleg Ling MD: [address], [address], [place] [address], Ph. [phone] Attender: Oleg Ling MD [place] - [facility] 03/26/2020 12:00:00 AM EST MARILIA ([facility]) Oleg Ling MD: [address], [address], [place] [address], Ph. [phone] Attender: Oleg Ling MD [place] - [facility] 03/26/2020 12:00:00 AM EST MARILIA ([facility]) Mar Smith, INDEPENDENT INSURANCE ADJUSTER: [address], [facility] [place] [address], Ph. Attender: Mar Smith [facility] - [facility] 03/18/2020 12:00:00 AM EST ATHE NA ([facility]) Mar Smith, INDEPENDENT INSURANCE ADJUSTER: [address], [place] [address], Ph. Attender: Mar Smith [facility] 03/18/2020 12:00:00 AM EST ATHE NA ([facility]) Mar Smith, INDEPENDENT INSURANCE ADJUSTER: [address], [place] [address], Ph. Attender: Mar Smith [facility] - [facility] 03/18/2020 12:00:00 AM EST ATHE NA ([facility]) Mar Smith, INDEPENDENT INSURANCE ADJUSTER: [address], [place] [address], Ph. Attender: Mar Smith [facility] - [facility] 03/18/2020 12:00:00 AM EST ATHE NA ([facility]) Mar Smith, INDEPENDENT INSURANCE ADJUSTER: [address], [place] [address], Ph. Attender: Mar Smith [facility] 03/18/2020 12:00:00 AM EST ATHE NA ([facility]) Mar Smith, INDEPENDENT INSURANCE ADJUSTER: [address], [place] [address], Ph. Attender: Mar Smith [facility] - [facility] 03/18/2020 12:00:00 AM EST ATHE NA ([facility]) Mar Smith, INDEPENDENT INSURANCE ADJUSTER: [address], [place] [address], Ph. Attender: Mar Smith [facility] - [facility] 03/18/2020 12:00:00 AM EST ATHE NA ([facility]) Mar Smith, INDEPENDENT INSURANCE ADJUSTER: [address], [place] [address], Ph. Attender: Mar Smith [facility] - [facility] 03/18/2020 12:00:00 AM EST ATHE NA ([facility]) Mar Smith, INDEPENDENT INSURANCE ADJUSTER: [address], [place] [address], Ph. Attender: Mar Smith [facility] - [facility] 03/18/2020 12:00:00 AM EST ATHE NA ([facility]) Unknown [address] [facility] [address] 03/14/2020 12:00:00 AM EST eCW1 ([facility]) Unknown [address] [facility] [address] 03/13/2020 12:00:00 AM EST eCW1 ([facility]) Outpatient Attender: Andrea Sterling/Riri/Mil/Joe ndl 03/12/2020 09:00:00 AM EST MEDENT ([facility]) Mar Smith, INDEPENDENT INSURANCE ADJUSTER: [address], [address], [place] [address], Ph. Attender: Mar Smith [facility] - [facility] 02/14/2020 12:00:00 AM EST ATHE NA ([facility]) Mar Smith, INDEPENDENT INSURANCE ADJUSTER: [address], [address], [place] [address], Ph. Attender: Mar Smith [facility] - [facility] 02/14/2020 12:00:00 AM EST ATHE NA ([facility]) Mar Smith, INDEPENDENT INSURANCE ADJUSTER: [address], [place] [address], Ph. Attender: Mar Smith [facility] - [facility] 02/14/2020 12:00:00 AM EST ATHE NA ([facility]) Mar Smith, INDEPENDENT INSURANCE ADJUSTER: [address], [place] [address], Ph. Attender: Mar Smith [facility] - [facility] 02/14/2020 12:00:00 AM EST ATHE NA ([facility]) Mar Smith, INDEPENDENT INSURANCE ADJUSTER: [address], [address], [place] [address], Ph. Attender: Mar Smith [facility] - [facility] 02/14/2020 12:00:00 AM EST ATHE NA ([facility]) Mar Smith, INDEPENDENT INSURANCE ADJUSTER: [address], [place] [address], Ph. Attender: Mar Smith [facility] - [facility] [facility] 02/14/2020 12:00:00 AM EST ATHE NA ([facility]) Mar Smith, INDEPENDENT INSURANCE ADJUSTER: [address], [place] [address], Ph. Attender: Mar Smith [facility] - [facility] 02/14/2020 12:00:00 AM EST ATHE NA ([facility]) Mar Smith, INDEPENDENT INSURANCE ADJUSTER: [address], [place] [address], Ph. Attender: Mar Smith [facility] - [facility] 02/14/2020 12:00:00 AM EST ATHE NA ([facility]) Mar Smith, INDEPENDENT INSURANCE ADJUSTER: [address], [place] [address], Ph. Attender: Mar Smith [facility] - [facility] 02/14/2020 12:00:00 AM EST ATHE NA ([facility]) Mar Smith, INDEPENDENT INSURANCE ADJUSTER: [address], [place] [address], Ph. Attender: Mar Smith [facility] - [facility] 02/14/2020 12:00:00 AM EST ATHE NA ([facility]) Unknown [address] [address] 02/13/2020 12:00:00 AM EST eCW1 ([facility]) Unknown 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 [address] 12/06/2019 12:00:00 AM EDT eCW1 ([facility]) Unknown [address] [address] 12/05/2019 12:00:00 AM EDT eCW1 ([facility]) Oleg Ling MD: [address], [address] [place], [place] [address], Ph. Attender: Oleg CHAIREZ - [facility] 12/03/2019 12:00:00 AM EDT MARILIA ([facility]) Oleg Ling MD: [address], [address] [place], [place] [address], Ph. Attender: Oleg CHAIREZ - [facility] 12/03/2019 12:00:00 AM EDT MARILIA ([facility]) Oleg Ling MD: [address], [address] [place], [place] [address], Ph. Attender: Oleg CHAIREZ - [facility] 12/03/2019 12:00:00 AM EDT MARILIA ([facility]) Oleg Ling MD: [address]150 [address], [place] [address], Ph. Attender: Oleg CHAIREZ - [facility] 12/03/2019 12:00:00 AM EDT MARILIA ([facility]) Oleg Ling MD: [address], [address], [place] [address], Ph. Attender: Oleg CHAIREZ - [facility] 12/03/2019 12:00:00 AM EDT MARILIA ([facility]) Oleg Ling MD: [address]241 [address], [address], [place] [address], Ph. Attender: Oleg CHAIREZ - [facility] 12/03/2019 12:00:00 AM EDT MARILIA ([facility]) Oleg Ling MD: [address]29 [address], [address], [place] [address], Ph. Attender: Oleg CHAIREZ - [facility] 12/03/2019 12:00:00 AM EDT MARILIA ([facility]) Oleg Ling MD: [address]16 [address], [address], [place] [address], Ph. Attender: Oleg CHAIREZ - [facility] 12/03/2019 12:00:00 AM EDT MARILIA ([facility]) Oleg Ling MD: [address]33 [address], [address], [place] [address], Ph. Attender: Oleg CHAIREZ - [facility] 12/03/2019 12:00:00 AM EDT MARILIA ([facility]) Oleg Ling MD: [address]481 [address], [address], [place] [address], Ph. Attender: Oleg CHAIREZ - [facility] 12/03/2019 12:00:00 AM EDT MARILIA ([facility]) Oleg Ling MD: [address]903 [address], [address], [place] [address], Ph. Attender: Oleg Ling [place] - [facility] - [facility] 12/03/2019 12:00:00 AM EDT MARILIA ([facility]) Oleg Ling MD: [address]952 [address], [address], [place] [address], Ph. [phone] Attender: Oleg Ling MD [place] - [facility] - [facility] 11/28/2019 12:00:00 AM EDT MARILIA ([facility]) Oleg Ling MD: [address]27 [address], [address], [place] [address], Ph. [phone] Attender: Oleg Ling MD [place] - [facility] 11/28/2019 12:00:00 AM EDT MARILIA ([facility]) Oleg Ling MD: [address]239 [address], [address], [place] [address], Ph. [phone] Attender: Oleg Ling MD [place] - [facility] - [facility] 11/28/2019 12:00:00 AM EDT MARILIA ([facility]) Oleg Ling MD: [address]14 [address], [address], [place] [address], Ph. [phone] Attender: Oleg Ling MD [place] - [facility] - [facility] 11/28/2019 12:00:00 AM EDT MARILIA ([facility]) Oleg Ling MD: [address]72 [address], [address], [place] [address], Ph. [phone] Attender: Oleg Ling MD [place] - [facility] 11/28/2019 12:00:00 AM EDT MARILIA ([facility]) Oleg Ling MD: 25340 [address], [address], [place] [address], Ph. [phone] Attender: Oleg Ling MD [place] - [facility] 11/28/2019 12:00:00 AM EDT MARILIA ([facility]) Oleg Ling MD: 28537 [address], [address], [place] [address], Ph. [phone] Attender: Oleg Ling MD [place] - [facility] 11/28/2019 12:00:00 AM EDT MARILIA ([facility]) Oleg Ling MD: [address]209 [address], [address], [place] [address], Ph. [phone] Attender: Oleg Ling MD [place] - [facility] 11/28/2019 12:00:00 AM EDT MARILIA ([facility]) Oleg Ling MD: [address]3841 [address], [address], [place] [address], Ph. [phone] Attender: Oleg Ling MD [place] - [facility] 11/28/2019 12:00:00 AM EDT MARILIA ([facility]) Oleg Ling MD: [address]1994 [address], [address], [place] [address], Ph. [phone] Attender: Oleg CHAIREZ - [facility] 11/28/2019 12:00:00 AM EDT MARILIA ([facility]) Oleg Ling MD: [address]77 [address], [address], [place] [address], Ph. [phone] Attender: Oleg Ling MD [place] - [facility] 11/28/2019 12:00:00 AM EDT MARILIA ([facility]) Oleg Ling MD: [address]0836 [address], [address], [place] [address], Ph. [phone] Attender: Oleg Ling MD [place] - [facility] 11/28/2019 12:00:00 AM EDT MARILIA ([facility]) Oleg Ling MD: 40641 [address], [address], [place] [address], Ph. [phone] Attender: Oleg CHAIREZ - [facility] 11/23/2019 12:00:00 AM EDT MARILIA ([facility]) Oleg Ling MD: [address]80 [address], [address], [place] [address], Ph. [phone] Attender: Oleg CHAIREZ - [facility] 11/23/2019 12:00:00 AM EDT MARILIA ([facility]) Oleg Ling MD: [address]27 [address], [address], [place] [address], Ph. [phone] Attender: Oleg CHAIREZ - [facility] 11/23/2019 12:00:00 AM EDT MARILIA ([facility]) Oleg Ling MD: [address]396 [address], [address], [place] [address], Ph. [phone] Attender: Oleg Ling MD [place] - [facility] 11/23/2019 12:00:00 AM EDT MARILIA ([facility]) Oleg Ling MD: 15589 [address], [address], [place] [address], Ph. [phone] Attender: Oleg Ling MD [place] - [facility] 11/23/2019 12:00:00 AM EDT MARILIA ([facility]) Oleg Ling MD: 99391 [address], [address], [place] [address], Ph. [phone] Attender: Oleg CHAIREZ - [facility] 11/23/2019 12:00:00 AM EDT MARILIA ([facility]) Oleg Ling MD: [address]69 [address], [address], [place] [address], Ph. [phone] Attender: Oleg Ling MD [place] - [facility] 11/23/2019 12:00:00 AM EDT MARILIA ([facility]) Oleg Ling MD: [address]10 [address], [address], [place] [address], Ph. [phone] Attender: Oleg Ling MD [place] - [facility] 11/23/2019 12:00:00 AM EDT MARILIA ([facility]) Oleg Ling MD: 41518 [address], [address], [place] [address], Ph. [phone] Attender: Oleg Ling MD [place] - [facility] 11/23/2019 12:00:00 AM EDT MARILIA ([facility]) Oleg Ling MD: 42607 [address], [address], [place] [address], Ph. [phone] Attender: Oleg Ling MD [place] - [facility] 11/23/2019 12:00:00 AM EDT MARILIA ([facility]) Oleg iLng MD: 31553 [address], [address], [place] [address], Ph. [phone] Attender: Oleg Ling MD [place] - [facility] 11/23/2019 12:00:00 AM EDT MARILIA ([facility]) Oleg Ling MD: 14817 [address], [address], [place] [address], Ph. [phone] Attender: Oleg Ling MD [place] - [facility] 11/23/2019 12:00:00 AM EDT MARILIA ([facility]) Oleg Ling MD: 75199 [address], [address], [place] [address], Ph. [phone] Attender: Oleg Ling MD [place] - [facility] 11/23/2019 12:00:00 AM EDT MARILIA ([facility]) Mar Smith, INDEPENDENT INSURANCE ADJUSTER: [address], [place] [address], Ph. Attender: Mar Sarah [facility] - [facility] 11/22/2019 12:00:00 AM EDT ATHE NA ([facility]) Mar Smith, INDEPENDENT INSURANCE ADJUSTER: [address], [place] [address], Ph. Attender: Mar Juabigailyue [facility] - [facility] 11/22/2019 12:00:00 AM EDT ATHE NA ([facility]) Mar Smith, INDEPENDENT INSURANCE ADJUSTER: [address], [place] [address], Ph. Attender: Mar Diyaabigailyue [facility] - [facility] 11/22/2019 12:00:00 AM EDT ATHE NA ([facility]) Mar Jennifer Smith, INDEPENDENT INSURANCE ADJUSTER: [address], [address], [place] [address], Ph. Attender: Mar Diyaabigailyue [facility] - [facility] 11/22/2019 12:00:00 AM EDT ATHMarichuy NA ([facility]) Mar Smith, INDEPENDENT INSURANCE ADJUSTER: [address], [place] [address], Ph. Attender: Mar Smith [facility] - [facility] 11/22/2019 12:00:00 AM EDT ATHE NA ([facility]) Mar Smith, INDEPENDENT INSURANCE ADJUSTER: [address], [place] [address], Ph. Attender: Mar Smith [facility] - [facility] 11/22/2019 12:00:00 AM EDT ATHE NA ([facility]) Mar Smith, INDEPENDENT INSURANCE ADJUSTER: [address], [address], [place] [address], Ph. Attender: Mar Smith [facility] - [facility] 11/22/2019 12:00:00 AM EDT ATHE NA ([facility]) Mar Smith, INDEPENDENT INSURANCE ADJUSTER: [address], [place] [address], Ph. Attender: Mar Smith [facility] - [facility] 11/22/2019 12:00:00 AM EDT ATHE NA ([facility]) Mar Smith, INDEPENDENT INSURANCE ADJUSTER: [address], [place] [address], Ph. Attender: Mar Smith [facility] - [facility] 11/22/2019 12:00:00 AM EDT ATHE NA ([facility]) Mar Smith, INDEPENDENT INSURANCE ADJUSTER: [address], [address], [place] [address], Ph. Attender: Mar Smith [facility] - [facility] 11/22/2019 12:00:00 AM EDT ATHE NA ([facility]) Mar Smith, INDEPENDENT INSURANCE ADJUSTER: [address], [address], [place] [address], Ph. Attender: Mar Smith [facility] - [facility] 11/22/2019 12:00:00 AM EDT ATHE NA ([facility]) Mar Smith, INDEPENDENT INSURANCE ADJUSTER: [address], [place] [address], Ph. Attender: Mar Smith [facility] - [facility] 11/22/2019 12:00:00 AM EDT ATHE NA ([facility]) Mar Smith, INDEPENDENT INSURANCE ADJUSTER: [address], [place] [address], Ph. Attender: Mar Smith [facility] - [facility] 11/22/2019 12:00:00 AM EDT ATHE NA ([facility]) Mar Smith, INDEPENDENT INSURANCE ADJUSTER: [address], [place] [address], Ph. Attender: Mar Smith [facility] - [facility] 11/22/2019 12:00:00 AM EDT ATHE NA ([facility]) Oleg Ling MD: 66271 [address], [place] [address], Ph. Attender: Oleg Ling MD [place] - [facility] 11/07/2019 12:00:00 AM EDT MARILIA ([facility]) Oleg Ling MD: 53416 [address], [place] [address], Ph. Attender: Oleg Ling MD [place] - [facility] 11/07/2019 12:00:00 AM EDT MARILIA ([facility]) Oleg Ling MD: 08959 [address], [address], [place] [address], Ph. Attender: Oleg Ling MD [place] - [facility] 11/07/2019 12:00:00 AM EDT MARILIA ([facility]) Oleg Ling MD: 21439 [address], [address], [place] [address], Ph. Attender: Oleg Ling MD [place] - [facility] 11/07/2019 12:00:00 AM EDT MARILIA ([facility]) Oleg Ling MD: 48792 [address], [address], [place] [address], Ph. Attender: Oleg Ling MD [place] - [facility] 11/07/2019 12:00:00 AM EDT MARILIA ([facility]) Oleg Ling MD: 61289 [address], [address], [place] [address], Ph. Attender: Oleg Ling MD [place] - [facility] 11/07/2019 12:00:00 AM EDT MARILIA ([facility]) Oleg Ling MD: 09502 [address], [address], [place] [address], Ph. Attender: Oleg Ling MD [place] - [facility] 11/07/2019 12:00:00 AM EDT MARILIA ([facility]) Oleg Ling MD: 81248 [address], [address], [place] [address], Ph. Attender: Oleg CHAIREZ - [facility] 11/07/2019 12:00:00 AM EDT MARILIA ([facility]) Oleg Ling MD: 45393 [address], [address], [place] [address], Ph. Attender: Oleg Ling MD [place] - [facility] 11/07/2019 12:00:00 AM EDT MARILIA ([facility]) Oleg Ling MD: 80635 [address], [address], [place] [address], Ph. Attender: Oleg Ling MD [place] - [facility] 11/07/2019 12:00:00 AM EDT MARILIA ([facility]) Oleg Ling MD: 02724 [address], [address], [place] [address], Ph. Attender: Oleg Ling MD [place] - [facility] 11/07/2019 12:00:00 AM EDT MARILIA ([facility]) Oleg Ling MD: 14582 [address], [address], [place] [address], Ph. Attender: Oleg CHAIREZ - [facility] 11/07/2019 12:00:00 AM EDT MARILIA ([facility]) Oleg Ling MD: 06674 [address], [address], [place] [address], Ph. Attender: Oleg CHAIREZ - [facility] 11/07/2019 12:00:00 AM EDT MARILIA ([facility]) Oleg Ling MD: 91189 [address], [address], [place] [address], Ph. Attender: Oleg CHAIREZ - [facility] 11/07/2019 12:00:00 AM EDT MARILIA ([facility]) Oleg Ling MD: 85121 [address], [address], [place] [address], Ph. Attender: Oleg Ling MD [place] - [facility] 11/07/2019 12:00:00 AM EDT MARILIA ([facility]) Oleg Ling MD: 42973 [address], [address], [place] [address], Ph. [phone] Attender: Oleg Ling MD [place] - [facility] 11/02/2019 12:00:00 AM EDT MARILIA ([facility]) Oleg Ling MD: 58057 [address], [address], [place] [address], Ph. [phone] Attender: Oleg Ling MD [place] - [facility] 11/02/2019 12:00:00 AM EDT MARILIA ([facility]) Oleg Ling MD: 07262 [address], [address], [place] [address], Ph. [phone] Attender: Oleg CHAIREZ - [facility] 11/02/2019 12:00:00 AM EDT MARILIA ([facility]) Oleg Ling MD: 17697 [address], [address], [place] [address], Ph. [phone] Attender: Oleg Ling MD [place] - [facility] 11/02/2019 12:00:00 AM EDT MARILIA ([facility]) Oleg Ling MD: 92556 [address], [address], [place] [address], Ph. [phone] Attender: Oleg Ling MD [place] - [facility] 11/02/2019 12:00:00 AM EDT MARILIA ([facility]) Oleg Ling MD: 40179 [address], [address], [place] [address], Ph. [phone] Attender: Oleg Ling MD [place] - [facility] 11/02/2019 12:00:00 AM EDT MARILIA ([facility]) Oleg Ling MD: 03083 [address], [address], [place] [address], Ph. [phone] Attender: Oleg Ling MD [place] - [facility] 11/02/2019 12:00:00 AM EDT MARILIA ([facility]) Oleg Ling MD: 91326 [address], [address], [place] [address], Ph. [phone] Attender: Oleg Ling MD [place] - [facility] 11/02/2019 12:00:00 AM EDT MARILIA ([facility]) Oleg Ling MD: 34348 [address], [address], [place] [address], Ph. [phone] Attender: Oleg Ling MD [place] - [facility] 11/02/2019 12:00:00 AM EDT MARILIA ([facility]) Oleg Ling MD: 02193 [address], [address], [place] [address], Ph. [phone] Attender: Oleg Ling MD [place] - [facility] 11/02/2019 12:00:00 AM EDT MARILIA ([facility]) Oleg Ling MD: 40250 [address], [address], [place] [address], Ph. [phone] Attender: Oleg Ling MD [place] - [facility] 11/02/2019 12:00:00 AM EDT MARILIA ([facility]) Oleg Ling MD: 34009 [address], [address], [place] [address], Ph. [phone] Attender: Oleg Ling MD [place] - [facility] 11/02/2019 12:00:00 AM EDT MARILIA ([facility]) Oleg Ling MD: 02795 [address], [place] [address], Ph. [phone] Attender: Oleg Ling MD [place] - [facility] - [facility] 11/02/2019 12:00:00 AM EDT MARILIA ([facility]) Oleg Ling MD: 53223 [address], [address], [place] [address], Ph. [phone] Attender: Oleg Ling MD [place] - [facility] - [facility] 11/02/2019 12:00:00 AM EDT MARILIA ([facility]) Oleg Ling MD: 23793 [address], [address], [place] [address], Ph. [phone] Attender: Oleg Ling MD [place] - [facility] - [facility] 11/02/2019 12:00:00 AM EDT MARILIA ([facility]) Oleg Ling MD: 36354 [address], [place] [address], Ph. [phone] Attender: Oleg Ling MD [place] - [facility] - [facility] 11/02/2019 12:00:00 AM EDT MARILIA ([facility]) Immunizations Vaccine Date Status Description Data Source(s) COVID-19 VACCINE Moderna 11/05/2020 12:00:00 AM EDT completed [facility] Vaccine Series Complete: YESThis Data wa s Submitted to [facility] Via [employer]. COVID-19 VACCINE Moderna 10/01/2020 12:00:00 AM EDT completed [facility] Vaccine Series Complete: NOThis Data was Submitted to [facility] [employer]. Medications Medication Brand Name Start Date Product Form Dose Route Admi nistrative Instructions Pharmacy Instructions Status Indications Reaction Description Data Source(s) NITROFURANTOIN, MACROCRYSTALS 25 MG / Ni trofurantoin, Monohydrate 75 MG Oral Capsule [Macrobid] Macrobid 100 MG Macrobid 100 MG 11/17/2020 12:00:00 AM EDT active Macrobid 100 MG eCW1 ([facility]) NITROFURANTOIN, MACROCRYSTALS 25 MG / Ni trofurantoin, Monohydrate 75 MG Oral Capsule [Macrobid] Macrobid 100 MG Macrobid 100 MG 11/17/2020 12:00:00 AM EDT active Macrobid 100 MG eCW1 ([facility]) NITROFURANTOIN, MACROCRYSTALS 25 MG / Ni trofurantoin, Monohydrate 75 MG Oral Capsule [Macrobid] Macrobid 100 MG Macrobid 100 MG 11/17/2020 12:00:00 AM EDT active Macrobid 100 MG eCW1 ([facility]) NITROFURANTOIN, MACROCRYSTALS 25 MG / Ni trofurantoin, Monohydrate 75 MG Oral Capsule [Macrobid] Macrobid 100 MG Macrobid 100 MG 11/17/2020 12:00:00 AM EDT active Macrobid 100 MG eCW1 ([facility]) NITROFURANTOIN, MACROCRYSTALS 25 MG / Ni trofurantoin, Monohydrate 75 MG Oral Capsule [Macrobid] Macrobid 100 MG Macrobid 100 MG 11/17/2020 12:00:00 AM EDT active Macrobid 100 MG eCW1 ([facility]) NITROFURANTOIN, MACROCRYSTALS 25 MG / Ni trofurantoin, Monohydrate 75 MG Oral Capsule [Macrobid] Macrobid 100 MG Macrobid 100 MG 11/17/2020 12:00:00 AM EDT active Macrobid 100 MG eCW1 ([facility]) NITROFURANTOIN, MACROCRYSTALS 25 MG / Ni trofurantoin, Monohydrate 75 MG Oral Capsule [Macrobid] Macrobid 100 MG Macrobid 100 MG 11/17/2020 12:00:00 AM EDT active Macrobid 100 MG eCW1 ([facility]) NITROFURANTOIN, MACROCRYSTALS 25 MG / Ni trofurantoin, Monohydrate 75 MG Oral Capsule [Macrobid] Macrobid 100 MG Macrobid 100 MG 11/17/2020 12:00:00 AM EDT active Macrobid 100 MG eCW1 ([facility]) NITROFURANTOIN, MACROCRYSTALS 25 MG / Ni trofurantoin, Monohydrate 75 MG Oral Capsule [Macrobid] Macrobid 100 MG Macrobid 100 MG 11/17/2020 12:00:00 AM EDT active Macrobid 100 MG eCW1 ([facility]) NITROFURANTOIN, MACROCRYSTALS 25 MG / Ni trofurantoin, Monohydrate 75 MG Oral Capsule [Macrobid] Macrobid 100 MG Macrobid 100 MG 11/17/2020 12:00:00 AM EDT active Macrobid 100 MG eCW1 ([facility]) NITROFURANTOIN, MACROCRYSTALS 25 MG / Ni trofurantoin, Monohydrate 75 MG Oral Capsule [Macrobid] Macrobid 100 MG Macrobid 100 MG 11/17/2020 12:00:00 AM EDT active Macrobid 100 MG eCW1 ([facility]) Mupirocin 0.02 MG/MG Topical Ointment Mupirocin 2 % Mupiroci n 2 % 11/14/2020 12:00:00 AM EDT active Mupiroci n 2 % eCW1 ([facility]) Mupirocin 0.02 MG/MG Topical Ointment Mupirocin 2 % Mupiroci n 2 % 11/14/2020 12:00:00 AM EDT active Mupiroci n 2 % eCW1 ([facility]) ferric carboxymaltose 50 MG/ML Injectabl e Solution [Injectafer] Injectafer 750 MG/15ML Injectafer 750 MG/15ML 11/14/2020 12:00:00 AM EDT active Injectafer 750 MG/15ML eCW1 ([facility]) Mupirocin 0.02 MG/MG Topical Ointment Mupirocin 2 % Mupiroci n 2 % 11/14/2020 12:00:00 AM EDT active Mupiroci n 2 % eCW1 ([facility]) ferric carboxymaltose 50 MG/ML Injectabl e Solution [Injectafer] Injectafer 750 MG/15ML Injectafer 750 MG/15ML 11/14/2020 12:00:00 AM EDT active Injectafer 750 MG/15ML eCW1 ([facility]) ferric carboxymaltose 50 MG/ML Injectabl e Solution [Injectafer] Injectafer 750 MG/15ML Injectafer 750 MG/15ML 11/14/2020 12:00:00 AM EDT active Injectafer 750 MG/15ML eCW1 ([facility]) Mupirocin 0.02 MG/MG Topical Ointment Mupirocin 2 % Mupiroci n 2 % 11/14/2020 12:00:00 AM EDT active Mupiroci n 2 % eCW1 ([facility]) Mupirocin 0.02 MG/MG Topical Ointment Mupirocin 2 % Mupiroci n 2 % 11/14/2020 12:00:00 AM EDT active Mupiroci n 2 % eCW1 ([facility]) ferric carboxymaltose 50 MG/ML Injectabl e Solution [Injectafer] Injectafer 750 MG/15ML Injectafer 750 MG/15ML 11/14/2020 12:00:00 AM EDT active Injectafer 750 MG/15ML eCW1 ([facility]) ferric carboxymaltose 50 MG/ML Injectabl e Solution [Injectafer] Injectafer 750 MG/15ML Injectafer 750 MG/15ML 11/14/2020 12:00:00 AM EDT active Injectafer 750 MG/15ML eCW1 ([facility]) Mupirocin 0.02 MG/MG Topical Ointment Mupirocin 2 % Mupiroci n 2 % 11/14/2020 12:00:00 AM EDT active Mupiroci n 2 % eCW1 ([facility]) ferric carboxymaltose 50 MG/ML Injectabl e Solution [Injectafer] Injectafer 750 MG/15ML Injectafer 750 MG/15ML 11/14/2020 12:00:00 AM EDT active Injectafer 750 MG/15ML eCW1 ([facility]) ferric carboxymaltose 50 MG/ML Injectabl e Solution [Injectafer] Injectafer 750 MG/15ML Injectafer 750 MG/15ML 11/14/2020 12:00:00 AM EDT active Injectafer 750 MG/15ML eCW1 ([facility]) Mupirocin 0.02 MG/MG Topical Ointment Mupirocin 2 % Mupiroci n 2 % 11/14/2020 12:00:00 AM EDT active Mupiroci n 2 % eCW1 ([facility]) ferric carboxymaltose 50 MG/ML Injectabl e Solution [Injectafer] Injectafer 750 MG/15ML Injectafer 750 MG/15ML 11/14/2020 12:00:00 AM EDT active Injectafer 750 MG/15ML eCW1 ([facility]) Mupirocin 0.02 MG/MG Topical Ointment Mupirocin 2 % Mupiroci n 2 % 11/14/2020 12:00:00 AM EDT active Mupiroci n 2 % eCW1 ([facility]) Mupirocin 0.02 MG/MG Topical Ointment Mupirocin 2 % Mupiroci n 2 % 11/14/2020 12:00:00 AM EDT active Mupiroci n 2 % eCW1 ([facility]) ferric carboxymaltose 50 MG/ML Injectabl e Solution [Injectafer] Injectafer 750 MG/15ML Injectafer 750 MG/15ML 11/14/2020 12:00:00 AM EDT active Injectafer 750 MG/15ML eCW1 ([facility]) ferric carboxymaltose 50 MG/ML Injectabl e Solution [Injectafer] Injectafer 750 MG/15ML Injectafer 750 MG/15ML 11/14/2020 12:00:00 AM EDT active Injectafer 750 MG/15ML eCW1 ([facility]) ferric carboxymaltose 50 MG/ML Injectabl e Solution [Injectafer] Injectafer 750 MG/15ML Injectafer 750 MG/15ML 11/14/2020 12:00:00 AM EDT active Injectafer 750 MG/15ML eCW1 ([facility]) ferric carboxymaltose 50 MG/ML Injectabl e Solution [Injectafer] Injectafer 750 MG/15ML Injectafer 750 MG/15ML 11/14/2020 12:00:00 AM EDT active Injectafer 750 MG/15ML eCW1 ([facility]) Mupirocin 0.02 MG/MG Topical Ointment Mupirocin 2 % Mupiroci n 2 % 11/14/2020 12:00:00 AM EDT active Mupiroci n 2 % eCW1 ([facility]) Mupirocin 0.02 MG/MG Topical Ointment Mupirocin 2 % Mupiroci n 2 % 11/14/2020 12:00:00 AM EDT active Mupiroci n 2 % eCW1 ([facility]) Mupirocin 0.02 MG/MG Topical Ointment Mupirocin 2 % Mupiroci n 2 % 11/14/2020 12:00:00 AM EDT active Mupiroci n 2 % eCW1 ([facility]) magnesium citrate 58.2 MG/ML Oral Solution Magnesium Citrate 11/11/2020 12:00:00 AM EDT active MEDENT ([facility] ) POLYETHYLENE GLYCOL 3350 142 MG/ML Oral Solution [Miralax] M iralax 11/11/2020 12:00:00 AM EDT active M EDITA ([facility] ) Blood Glucose Test - Blood Glucose Test - 11/03/2020 12:00:00 AM EDT active Blood Glucose Test - eCW1 ([facility]) Blood Glucose Test - Blood Glucose Test - 11/03/2020 12:00:00 AM EDT active Blood Glucose Test - eCW1 ([facility]) Blood Glucose Test - Blood Glucose Test - 11/03/2020 12:00:00 AM EDT active Blood Glucose Test - eCW1 ([facility]) Lancets - Lancets - 11/03/2020 12:00:00 AM EDT act надрей Lancets - eCW1 ([facility]) Glucometer UNK 11/03/2020 12:00:00 AM EDT active Glucometer eCW1 ([facility]) Glucometer UNK 11/03/2020 12:00:00 AM EDT active Glucometer eCW1 ([facility]) Glucometer UNK 11/03/2020 12:00:00 AM EDT active Glucometer eCW1 ([facility]) Blood Glucose Test - Blood Glucose Test - 11/03/2020 12:00:00 AM EDT active Blood Glucose Test - eCW1 ([facility]) Glucometer UNK 11/03/2020 12:00:00 AM EDT active Glucometer eCW1 ([facility]) Lancets - Lancets - 11/03/2020 12:00:00 AM EDT act андрей Lancets - eCW1 ([facility]) Blood Glucose Test - Blood Glucose Test - 11/03/2020 12:00:00 AM EDT active Blood Glucose Test - eCW1 ([facility]) Lancets - Lancets - 11/03/2020 12:00:00 AM EDT act андрей Lancets - eCW1 ([facility]) Lancets - Lancets - 11/03/2020 12:00:00 AM EDT act андрей Lancets - eCW1 ([facility]) Lancets - Lancets - 11/03/2020 12:00:00 AM EDT act андрей Lancets - eCW1 ([facility]) Glucometer UNK 11/03/2020 12:00:00 AM EDT active Glucometer eCW1 ([facility]) Blood Glucose Test - Blood Glucose Test - 11/03/2020 12:00:00 AM EDT active Blood Glucose Test - eCW1 ([facility]) Glucometer UNK 11/03/2020 12:00:00 AM EDT active Glucometer eCW1 ([facility]) Blood Glucose Test - Blood Glucose Test - 11/03/2020 12:00:00 AM EDT active Blood Glucose Test - eCW1 ([facility]) Glucometer UNK 11/03/2020 12:00:00 AM EDT active Glucometer eCW1 ([facility]) Blood Glucose Test - Blood Glucose Test - 11/03/2020 12:00:00 AM EDT active Blood Glucose Test - eCW1 ([facility]) Lancets - Lancets - 11/03/2020 12:00:00 AM EDT act андрей Lancets - eCW1 ([facility]) Lancets - Lancets - 11/03/2020 12:00:00 AM EDT act андрей Lancets - eCW1 ([facility]) Blood Glucose Test - Blood Glucose Test - 11/03/2020 12:00:00 AM EDT active Blood Glucose Test - eCW1 ([facility]) Lancets - Lancets - 11/03/2020 12:00:00 AM EDT act андрей Lancets - eCW1 ([facility]) Glucometer UNK 11/03/2020 12:00:00 AM EDT active Glucometer eCW1 ([facility]) Glucometer UNK 11/03/2020 12:00:00 AM EDT active Glucometer eCW1 ([facility]) Blood Glucose Test - Blood Glucose Test - 11/03/2020 12:00:00 AM EDT active Blood Glucose Test - eCW1 ([facility]) Lancets - Lancets - 11/03/2020 12:00:00 AM EDT act андрей Lancets - eCW1 ([facility]) Lancets - Lancets - 11/03/2020 12:00:00 AM EDT act андрей Lancets - eCW1 ([facility]) Glucometer UNK 11/03/2020 12:00:00 AM EDT active Glucometer eCW1 ([facility]) Lancets - Lancets - 11/03/2020 12:00:00 AM EDT act андрей Lancets - eCW1 ([facility]) Lancets - Lancets - 11/03/2020 12:00:00 AM EDT act андрей Lancets - eCW1 ([facility]) Glucometer UNK 11/03/2020 12:00:00 AM EDT active Glucometer eCW1 ([facility]) Blood Glucose Test - Blood Glucose Test - 11/03/2020 12:00:00 AM EDT active Blood Glucose Test - eCW1 ([facility]) Blood Glucose Test - Blood Glucose Test - 11/03/2020 12:00:00 AM EDT active Blood Glucose Test - eCW1 ([facility]) Glucometer UNK 11/03/2020 12:00:00 AM EDT active Glucometer eCW1 ([facility]) Lancets - Lancets - 11/03/2020 12:00:00 AM EDT act андрей Lancets - eCW1 ([facility]) Blood Glucose Test - Blood Glucose Test - 11/03/2020 12:00:00 AM EDT active Blood Glucose Test - eCW1 ([facility]) Glucometer UNK 11/03/2020 12:00:00 AM EDT active Glucometer eCW1 ([facility]) Lancets - Lancets - 11/03/2020 12:00:00 AM EDT act андрей Lancets - eCW1 ([facility]) Blood Glucose Test - Blood Glucose Test - 11/03/2020 12:00:00 AM EDT active Blood Glucose Test - eCW1 ([facility]) Lancets - Lancets - 11/03/2020 12:00:00 AM EDT act андрей Lancets - eCW1 ([facility]) Blood Glucose Test - Blood Glucose Test - 11/03/2020 12:00:00 AM EDT active Blood Glucose Test - eCW1 ([facility]) Glucometer UNK 11/03/2020 12:00:00 AM EDT active Glucometer eCW1 ([facility]) Glucometer UNK 11/03/2020 12:00:00 AM EDT active Glucometer eCW1 ([facility]) POLYETHYLENE GLYCOL 3350 142 MG/ML Oral Solution [Miralax] M iralax 10/15/2020 12:00:00 AM EDT ORAL active M EDENT ([facility] ) Alprazolam 1 MG Oral Tablet Alprazolam 08/11/2020 12:00:00 AM EDT ORAL active MEDENT [facility] [place] Fluconazole 150 MG Oral Tablet [Diflucan] Diflucan 08/11/2020 1 2:00:00 AM EDT ORAL active MEDENT [facility]) Botox 50 Units For Waste For 200 Units JW Modifier 07/23/2020 12:00:00 AM EDT completed MEDENT ([facility]) Medication administered onsite Botox 200 Units- I Vial 07/23/2020 12:00:00 AM EDT completed MEDENT ([facility]) Medication administered onsite cefdinir 300 MG Oral Capsule Cefdinir 07/16/2020 12:00:00 AM EDT ORAL completed MEDENT ([facility]) 60 ACTUAT Fluticasone propionate 0.25 MG /ACTUAT / salmeterol 0.05 MG/ACTUAT Dry Powder Inhaler [Advair] Advair Diskus 250-50 MCG/DOSE Advair Diskus 250-50 MCG/DOSE 07/07/2020 12:00:00 AM EDT 1.0 {puff} activ e Advair Diskus 250-50 MCG/DOSE eCW1 ([facility]) 60 ACTUAT Fluticasone propionate 0.25 MG /ACTUAT / salmeterol 0.05 MG/ACTUAT Dry Powder Inhaler [Advair] Advair Diskus 250-50 MCG/DOSE Advair Diskus 250-50 MCG/DOSE 07/07/2020 12:00:00 AM EDT 1.0 {puff} activ e Advair Diskus 250-50 MCG/DOSE eCW1 ([facility]) 60 ACTUAT Fluticasone propionate 0.25 MG /ACTUAT / salmeterol 0.05 MG/ACTUAT Dry Powder Inhaler [Advair] Advair Diskus 250-50 MCG/DOSE Advair Diskus 250-50 MCG/DOSE 07/07/2020 12:00:00 AM EDT 1.0 {puff} activ e Advair Diskus 250-50 MCG/DOSE eCW1 ([facility]) 60 ACTUAT Fluticasone propionate 0.25 MG /ACTUAT / salmeterol 0.05 MG/ACTUAT Dry Powder Inhaler [Advair] Advair Diskus 250-50 MCG/DOSE Advair Diskus 250-50 MCG/DOSE 07/07/2020 12:00:00 AM EDT 1.0 {puff} activ e Advair Diskus 250-50 MCG/DOSE eCW1 ([facility]) 60 ACTUAT Fluticasone propionate 0.25 MG /ACTUAT / salmeterol 0.05 MG/ACTUAT Dry Powder Inhaler [Advair] Advair Diskus 250-50 MCG/DOSE Advair Diskus 250-50 MCG/DOSE 07/07/2020 12:00:00 AM EDT 1.0 {puff} activ e Advair Diskus 250-50 MCG/DOSE eCW1 ([facility]) 60 ACTUAT Fluticasone propionate 0.25 MG /ACTUAT / salmeterol 0.05 MG/ACTUAT Dry Powder Inhaler [Advair] Advair Diskus 250-50 MCG/DOSE Advair Diskus 250-50 MCG/DOSE 07/07/2020 12:00:00 AM EDT 1.0 {puff} activ e Advair Diskus 250-50 MCG/DOSE eCW1 ([facility]) 60 ACTUAT Fluticasone propionate 0.25 MG /ACTUAT / salmeterol 0.05 MG/ACTUAT Dry Powder Inhaler [Advair] Advair Diskus 250-50 MCG/DOSE Advair Diskus 250-50 MCG/DOSE 07/07/2020 12:00:00 AM EDT 1.0 {puff} activ e Advair Diskus 250-50 MCG/DOSE eCW1 ([facility]) 60 ACTUAT Fluticasone propionate 0.25 MG /ACTUAT / salmeterol 0.05 MG/ACTUAT Dry Powder Inhaler [Advair] Advair Diskus 250-50 MCG/DOSE Advair Diskus 250-50 MCG/DOSE 07/07/2020 12:00:00 AM EDT 1.0 {puff} activ e Advair Diskus 250-50 MCG/DOSE eCW1 ([facility]) 60 ACTUAT Fluticasone propionate 0.25 MG /ACTUAT / salmeterol 0.05 MG/ACTUAT Dry Powder Inhaler [Advair] Advair Diskus 250-50 MCG/DOSE Advair Diskus 250-50 MCG/DOSE 07/07/2020 12:00:00 AM EDT 1.0 {puff} activ e Advair Diskus 250-50 MCG/DOSE eCW1 ([facility]) 60 ACTUAT Fluticasone propionate 0.25 MG /ACTUAT / salmeterol 0.05 MG/ACTUAT Dry Powder Inhaler [Advair] Advair Diskus 250-50 MCG/DOSE Advair Diskus 250-50 MCG/DOSE 07/07/2020 12:00:00 AM EDT 1.0 {puff} activ e Advair Diskus 250-50 MCG/DOSE eCW1 ([facility]) 60 ACTUAT Fluticasone propionate 0.25 MG /ACTUAT / salmeterol 0.05 MG/ACTUAT Dry Powder Inhaler [Advair] Advair Diskus 250-50 MCG/DOSE Advair Diskus 250-50 MCG/DOSE 07/07/2020 12:00:00 AM EDT 1.0 {puff} activ e Advair Diskus 250-50 MCG/DOSE eCW1 ([facility]) 60 ACTUAT Fluticasone propionate 0.25 MG /ACTUAT / salmeterol 0.05 MG/ACTUAT Dry Powder Inhaler [Advair] Advair Diskus 250-50 MCG/DOSE Advair Diskus 250-50 MCG/DOSE 07/07/2020 12:00:00 AM EDT 1.0 {puff} activ e Advair Diskus 250-50 MCG/DOSE eCW1 ([facility]) 60 ACTUAT Fluticasone propionate 0.25 MG /ACTUAT / salmeterol 0.05 MG/ACTUAT Dry Powder Inhaler [Advair] Advair Diskus 250-50 MCG/DOSE Advair Diskus 250-50 MCG/DOSE 07/07/2020 12:00:00 AM EDT 1.0 {puff} activ e Advair Diskus 250-50 MCG/DOSE eCW1 ([facility]) Alprazolam 1 MG Oral Tablet Alprazolam 05/29/2020 12:00:00 AM EDT ORAL completed MEDENT ([facility] POLYETHYLENE GLYCOL 3350 142 MG/ML Oral Solution [Dawn lax] MiraLax 17 GM/SCOOP MiraLax 17 GM/SCOOP 05/26/2020 12:00:00 AM EDT active MiraLax 17 GM/SCOOP eCW1 ([facility]) POLYETHYLENE GLYCOL 3350 142 MG/ML Oral Solution [Dawn lax] MiraLax 17 GM/SCOOP MiraLax 17 GM/SCOOP 05/26/2020 12:00:00 AM EDT active MiraLax 17 GM/SCOOP eCW1 ([facility]) POLYETHYLENE GLYCOL 3350 142 MG/ML Oral Solution [Dawn lax] MiraLax 17 GM/SCOOP MiraLax 17 GM/SCOOP 05/26/2020 12:00:00 AM EDT active MiraLax 17 GM/SCOOP eCW1 ([facility]) POLYETHYLENE GLYCOL 3350 142 MG/ML Oral Solution [Dawn lax] MiraLax 17 GM/SCOOP MiraLax 17 GM/SCOOP 05/26/2020 12:00:00 AM EDT active MiraLax 17 GM/SCOOP eCW1 ([facility]) POLYETHYLENE GLYCOL 3350 142 MG/ML Oral Solution [Dawn lax] MiraLax 17 GM/SCOOP MiraLax 17 GM/SCOOP 05/26/2020 12:00:00 AM EDT active MiraLax 17 GM/SCOOP eCW1 ([facility]) POLYETHYLENE GLYCOL 3350 142 MG/ML Oral Solution [Dawn lax] MiraLax 17 GM/SCOOP MiraLax 17 GM/SCOOP 05/26/2020 12:00:00 AM EDT active MiraLax 17 GM/SCOOP eCW1 ([facility]) POLYETHYLENE GLYCOL 3350 142 MG/ML Oral Solution [Dawn lax] MiraLax 17 GM/SCOOP MiraLax 17 GM/SCOOP 05/26/2020 12:00:00 AM EDT active MiraLax 17 GM/SCOOP eCW1 ([facility]) POLYETHYLENE GLYCOL 3350 142 MG/ML Oral Solution [Dawn lax] MiraLax 17 GM/SCOOP MiraLax 17 GM/SCOOP 05/26/2020 12:00:00 AM EDT active MiraLax 17 GM/SCOOP eCW1 ([facility]) POLYETHYLENE GLYCOL 3350 142 MG/ML Oral Solution [Dawn lax] MiraLax 17 GM/SCOOP MiraLax 17 GM/SCOOP 05/26/2020 12:00:00 AM EDT active MiraLax 17 GM/SCOOP eCW1 ([facility]) POLYETHYLENE GLYCOL 3350 142 MG/ML Oral Solution [Dawn lax] MiraLax 17 GM/SCOOP MiraLax 17 GM/SCOOP 05/26/2020 12:00:00 AM EDT active MiraLax 17 GM/SCOOP eCW1 ([facility]) POLYETHYLENE GLYCOL 3350 142 MG/ML Oral Solution [Dawn lax] MiraLax 17 GM/SCOOP MiraLax 17 GM/SCOOP 05/26/2020 12:00:00 AM EDT active MiraLax 17 GM/SCOOP eCW1 ([facility]) 60 ACTUAT Albuterol 0.09 MG/ACTUAT Metered Dose Inhaler Albu terol Sulfate HFA 04/25/2020 12:00:00 AM EST RESPIRATORY active MEDENT ([facility] ) NITROFURANTOIN, MACROCRYSTALS 50 MG Oral Capsule [Macrodanti n] Macrodantin 04/09/2020 12:00:00 AM EST ORAL completed MEDENT ([facility] [place]) Ciprofloxacin 500 MG Oral Tablet Ciprofloxacin HCL 04/09/2020 12:00 :00 AM EST ORAL completed MEDENT ([facility] [place] Cyclobenzaprine hydrochloride 10 MG Oral Tablet Cyclob enzaprine HCl 10 MG Cyclobenzaprine HCl 10 MG 02/07/2020 12:00:00 AM EST active Cyclobenzaprine HCl 10 MG eCW1 ([facility]) Cyclobenzaprine hydrochloride 10 MG Oral Tablet Cyclob enzaprine HCl 10 MG Cyclobenzaprine HCl 10 MG 02/07/2020 12:00:00 AM EST active Cyclobenzaprine HCl 10 MG eCW1 ([facility]) Cyclobenzaprine hydrochloride 5 MG Oral Tablet Cyclobe nzaprine HCl 5 MG Cyclobenzaprine HCl 5 MG 02/07/2020 12:00:00 AM EST active Cyclobenzaprine HCl 5 MG eCW1 ([facility]) Cyclobenzaprine hydrochloride 10 MG Oral Tablet Cyclob enzaprine HCl 10 MG Cyclobenzaprine HCl 10 MG 02/07/2020 12:00:00 AM EST active Cyclobenzaprine HCl 10 MG eCW1 ([facility]) Metronidazole 500 MG Oral Tablet Metronidazole 01/14/2020 12:00:00 AM EST ORAL active MEDENT ([facility] [place]) Tamsulosin hydrochloride 0.4 MG Oral Capsule Tamsulosin HCL 01/10/2020 12:00:00 AM EST active MEDENT ([facility] [place]) NITROFURANTOIN, MACROCRYSTALS 25 MG / Ni trofurantoin, Monohydrate 75 MG Oral Capsule [Macrobid] Macrobid 01/10/2020 12:00:00 AM EST ORAL completed MEDENT ([facility] [place] Ciprofloxacin 250 MG Oral Tablet Ciprofloxacin HCL 12/13/2019 12:00 :00 AM EDT ORAL completed MEDENT ([facility] [place] Amitriptyline Hydrochloride 25 MG Oral Tablet Amitript yline HCl 25 MG Amitriptyline HCl 25 MG 12/06/2019 12:00:00 AM EDT active Amitriptyline HCl 25 MG eCW1 ([facility]) Amitriptyline Hydrochloride 25 MG Oral Tablet Amitript yline HCl 25 MG Amitriptyline HCl 25 MG 12/06/2019 12:00:00 AM EDT active Amitriptyline HCl 25 MG eCW1 ([facility]) Amitriptyline Hydrochloride 25 MG Oral Tablet Amitript yline HCl 25 MG Amitriptyline HCl 25 MG 12/06/2019 12:00:00 AM EDT active Amitriptyline HCl 25 MG eCW1 ([facility]) Amitriptyline Hydrochloride 25 MG Oral Tablet Amitript yline HCl 25 MG Amitriptyline HCl 25 MG 12/06/2019 12:00:00 AM EDT active Amitriptyline HCl 25 MG eCW1 ([facility]) Amitriptyline Hydrochloride 25 MG Oral Tablet Amitript yline HCl 25 MG Amitriptyline HCl 25 MG 12/06/2019 12:00:00 AM EDT active Amitriptyline HCl 25 MG eCW1 ([facility]) Amitriptyline Hydrochloride 25 MG Oral Tablet Amitript yline HCl 25 MG Amitriptyline HCl 25 MG 12/06/2019 12:00:00 AM EDT active Amitriptyline HCl 25 MG eCW1 ([facility]) Botox 200 Units- I Vial 11/27/2019 12:00:00 AM EDT completed MEDENT ([facility]) Medication administered onsite Botox 50 Units For Waste For 200 Units JW Modifier 11/27/2019 12:00:00 AM EDT completed MEDENT ([facility]) Medication administered onsite Ciprofloxacin 250 MG Oral Tablet Ciprofloxacin HCL 11/27/2019 12:00 :00 AM EDT ORAL completed MEDENT ([facility] [place] Alprazolam 1 MG Oral Tablet Alprazolam 10/11/2019 12:00:00 AM EDT ORAL completed MEDENT ([facility] [place] cefdinir 300 MG Oral Capsule cefdinir 300 mg capsule cefdinir 30 0 mg capsule completed cefdinir 300 M G Oral Capsule MARILIA ([facility]) Methylprednisolone 4 MG Oral Tablet methylprednisolone 4 mg tablet 1 tab daily methylprednisolone 4 mg tablet 1 tab daily completed methylprednisolone 4 MG Oral Tablet MARILIA ([facility]) Doxycycline Monohydrate 100 MG Oral Caps ule doxycycline monohydrate 100 mg capsule TAKE ONE CAPSULE BY MOUTH TWICE DAILY FOR SEVEN DAYS doxycycline monohydrate 100 mg capsule TAKE ONE CAPSULE BY MOUTH TWICE DAILY FOR SEVEN DAYS completed doxycycline mo nohydrate 100 MG Oral Capsule MARILIA ([facility]) cefdinir 300 MG Oral Capsule cefdinir 300 mg capsule cefdinir 30 0 mg capsule completed cefdinir 300 M G Oral Capsule MARILIA ([facility]) Amoxicillin 500 MG / Clavulanate 125 MG Oral Tablet amoxicillin 500 mg-potassium clavulanate 125 mg tablet TAKE ONE TABLET BY MOUTH EVERY TWELVE HOURS amoxicillin 500 mg-potassium clavulanate 125 mg tablet TAKE ONE TABLET BY MOUTH EVERY TWELVE HOURS completed amoxicillin 500 MG / clavulanate 125 MG Oral Tablet MARILIA ([facility]) 0.3 ML Enoxaparin sodium 100 MG/ML Prefi lled Syringe enoxaparin 30 mg/0.3 mL subcutaneous syringe INJECT 0.3 MILLILITERS SUBCUTANEOUSLY EVERY 12 HOURS FOR TWO WEEKS enoxaparin 30 mg/0.3 mL subcutaneous syr travis INJECT 0.3 MILLILITERS SUBCUTANEOUSLY EVERY 12 HOURS FOR TWO WEEKS completed 0.3 ML enoxaparin sodium 100 MG/ML Prefilled Syringe MARILIA ([facility] [facility] Methylprednisolone 4 MG Oral Tablet methylprednisolone 4 mg tablet 1 tab daily methylprednisolone 4 mg tablet 1 tab daily completed methylprednisolone 4 MG Oral Tablet MARILIA ([facility]) tramadol hydrochloride 50 MG Oral Tablet tramadol 50 mg tablet TAKE ONE TABLET BY MOUTH EVERY 6 HOURS NEEDED FOR PAIN MAX DAILY DOSE FOUR TABLETS tramadol 50 mg tablet TAKE ONE TABLET BY MOUTH EVERY 6 HOURS NEEDED FOR PAIN MAX DAILY DOSE FOUR TABLETS completed tramadol hydrochloride 50 MG Oral Tablet MARILIA ([facility]) Oxycodone Hydrochloride 5 MG Oral Tablet oxycodone 5 mg tablet TAKE 1 TO 2 TABLETS BY MOUTH EVERY FOUR HOURS NEEDED FOR PAIN MAX DAILY DOSE 12 CAPSULES oxycodone 5 mg tablet TAKE 1 TO 2 TABLETS BY MOUTH EVERY FOUR HOURS NEEDED FOR PAIN MAX DAILY DOSE 12 CAPSULES co mpleted oxycodone hydrochloride 5 MG Oral Tablet MARILIA ([facility]) Prednisone 20 MG Oral Tablet prednisone 20 mg tablet TAKE ONE TABLET BY MOUTH ONCE DAILY FOR FIVE DAYS prednisone 20 mg tablet TAKE ONE TABLET BY MOUTH ONCE DAILY FOR FIVE DAYS completed pr ednisone 20 MG Oral Tablet [facility] ([facility]) glimepiride 1 MG Oral Tablet glimepiride 1 mg tablet glimepiride 1 mg tablet completed glimepiride 1 MG Oral Tablet MARILIA ([facility]) Alprazolam 1 MG Oral Tablet alprazolam 1 mg tablet alprazolam 1 mg ta blet completed alprazolam 1 MG Oral Tablet MAR[facility] ([facility]) Alprazolam 1 MG Oral Tablet alprazolam 1 mg tablet alprazolam 1 mg ta blet completed alprazolam 1 MG Oral Tablet MAR[facility] ([facility]) 0.3 ML Enoxaparin sodium 100 MG/ML Prefi lled Syringe enoxaparin 30 mg/0.3 mL subcutaneous syringe INJECT 0.3 MILLILITERS SUBCUTANEOUSLY EVERY 12 HOURS FOR TWO WEEKS enoxaparin 30 mg/0.3 mL subcutaneous syr travis INJECT 0.3 MILLILITERS SUBCUTANEOUSLY EVERY 12 HOURS FOR TWO WEEKS completed 0.3 ML enoxaparin sodium 100 MG/ML Prefilled Syringe MARILIA ([facility]) Methylprednisolone 2 MG Oral Tablet [Med rol] Medrol 2 mg tablet 1 tablet every other day Medrol 2 mg tablet 1 tablet every other day completed methylprednisolone 2 MG Oral Tablet [Medrol] MARILIA ([facility]) Doxycycline Monohydrate 100 MG Oral Caps ule doxycycline monohydrate 100 mg capsule TAKE ONE CAPSULE BY MOUTH TWICE DAILY FOR SEVEN DAYS doxycycline monohydrate 100 mg capsule TAKE ONE CAPSULE BY MOUTH TWICE DAILY FOR SEVEN DAYS completed doxycycline mo nohydrate 100 MG Oral Capsule MARILIA ([facility]) Prednisone 20 MG Oral Tablet prednisone 20 mg tablet TAKE ONE TABLET BY MOUTH ONCE DAILY FOR FIVE DAYS prednisone 20 mg tablet TAKE ONE TABLET BY MOUTH ONCE DAILY FOR FIVE DAYS completed pr ednisone 20 MG Oral Tablet MAR[facility] ([facility]) Amoxicillin 500 MG / Clavulanate 125 MG Oral Tablet amoxicillin 500 mg-potassium clavulanate 125 mg tablet TAKE ONE TABLET BY MOUTH EVERY TWELVE HOURS amoxicillin 500 mg-potassium clavulanate 125 mg tablet TAKE ONE TABLET BY MOUTH EVERY TWELVE HOURS completed amoxicillin 500 MG / clavulanate 125 MG Oral Tablet MARILIA ([facility]) Alprazolam 1 MG Oral Tablet alprazolam 1 mg tablet alprazolam 1 mg ta blet completed alprazolam 1 MG Oral Tablet MAR[facility] ([facility]) 0.3 ML Enoxaparin sodium 100 MG/ML Prefi lled Syringe enoxaparin 30 mg/0.3 mL subcutaneous syringe INJECT 0.3 MILLILITERS SUBCUTANEOUSLY EVERY 12 HOURS FOR TWO WEEKS enoxaparin 30 mg/0.3 mL subcutaneous syr travis INJECT 0.3 MILLILITERS SUBCUTANEOUSLY EVERY 12 HOURS FOR TWO WEEKS completed 0.3 ML enoxaparin sodium 100 MG/ML Prefilled Syringe MARILIA ([facility]) Prednisone 20 MG Oral Tablet prednisone 20 mg tablet TAKE ONE TABLET BY MOUTH ONCE DAILY FOR FIVE DAYS prednisone 20 mg tablet TAKE ONE TABLET BY MOUTH ONCE DAILY FOR FIVE DAYS completed pr ednisone 20 MG Oral Tablet MARILIA ([facility]) 0.3 ML Enoxaparin sodium 100 MG/ML Prefi lled Syringe enoxaparin 30 mg/0.3 mL subcutaneous syringe INJECT 0.3 MILLILITERS SUBCUTANEOUSLY EVERY 12 HOURS FOR TWO WEEKS enoxaparin 30 mg/0.3 mL subcutaneous syr travis INJECT 0.3 MILLILITERS SUBCUTANEOUSLY EVERY 12 HOURS FOR TWO WEEKS completed 0.3 ML enoxaparin sodium 100 MG/ML Prefilled Syringe MARILIA ([facility]) 0.3 ML Enoxaparin sodium 100 MG/ML Prefi lled Syringe enoxaparin 30 mg/0.3 mL subcutaneous syringe INJECT 0.3 MILLILITERS SUBCUTANEOUSLY EVERY 12 HOURS FOR TWO WEEKS enoxaparin 30 mg/0.3 mL subcutaneous syr travis INJECT 0.3 MILLILITERS SUBCUTANEOUSLY EVERY 12 HOURS FOR TWO WEEKS completed 0.3 ML enoxaparin sodium 100 MG/ML Prefilled Syringe MARILIA ([facility]) Amoxicillin 500 MG / Clavulanate 125 MG Oral Tablet amoxicillin 500 mg-potassium clavulanate 125 mg tablet TAKE ONE TABLET BY MOUTH EVERY TWELVE HOURS amoxicillin 500 mg-potassium clavulanate 125 mg tablet TAKE ONE TABLET BY MOUTH EVERY TWELVE HOURS completed amoxicillin 500 MG / clavulanate 125 MG Oral Tablet MARILIA ([facility]) Doxycycline Monohydrate 100 MG Oral Caps ule doxycycline monohydrate 100 mg capsule TAKE ONE CAPSULE BY MOUTH TWICE DAILY FOR SEVEN DAYS doxycycline monohydrate 100 mg capsule TAKE ONE CAPSULE BY MOUTH TWICE DAILY FOR SEVEN DAYS completed doxycycline mo nohydrate 100 MG Oral Capsule MARILIA ([facility]) Acetaminophen 325 MG / Oxycodone Hydroch loride 5 MG Oral Tablet oxycodone- acetaminophen 5 mg-325 mg tablet oxycodone-acetaminophen 5 mg-325 mg tablet completed acetaminop hen 325 MG / oxycodone hydrochloride 5 MG Oral Tablet MARILIA ([facility]) glimepiride 1 MG Oral Tablet glimepiride 1 mg tablet glimepiride 1 mg tablet completed glimepiride 1 MG Oral Tablet MAR[facility] ([facility]) Estradiol 0.1 MG/ML Vaginal Cream estradiol 0.01% (0.1 mg/gram) vaginal cream estradiol 0.01% (0.1 mg/gram) vaginal cream completed estradiol 0.1 MG/ML Vaginal Cream MAR[facility] ([facility]) Prednisone 20 MG Oral Tablet prednisone 20 mg tablet TAKE ONE TABLET BY MOUTH ONCE DAILY FOR FIVE DAYS prednisone 20 mg tablet TAKE ONE TABLET BY MOUTH ONCE DAILY FOR FIVE DAYS completed pr ednisone 20 MG Oral Tablet MAR[facility] ([facility]) glimepiride 2 MG Oral Tablet glimepiride 2 mg tablet TAKE ONE TABLET BY MOUTH @8AM and TAKE ONE TABLET @8PM glimepiride 2 mg tablet TAKE ONE TABLET BY MOUTH @8AM and TAKE ONE TABLET @8PM complete d glimepiride 2 MG Oral Tablet MARILIA ([facility]) Cyclobenzaprine hydrochloride 5 MG Oral Tablet cyclobenzaprine 5 mg tablet TAKE ONE TABLET BY MOUTH @8AM and TAKE ONE TABLET @12PM and TAKE ONE TABLET @8PM cyclobenzaprine 5 mg tablet TAKE ONE TABLET BY MOUTH @8AM and TAKE ONE TABLET @12PM and TAKE ONE TABLET @8PM complet ed cyclobenzaprine hydrochloride 5 MG Oral Tablet MARILIA ([facility]) Acetaminophen 325 MG / Oxycodone Hydroch loride 5 MG Oral Tablet oxycodone- acetaminophen 5 mg-325 mg tablet oxycodone-acetaminophen 5 mg-325 mg tablet completed acetaminop hen 325 MG / oxycodone hydrochloride 5 MG Oral Tablet MAR[facility] ([facility]) tramadol hydrochloride 50 MG Oral Tablet tramadol 50 mg tablet TAKE ONE TABLET BY MOUTH EVERY 6 HOURS NEEDED FOR PAIN MAX DAILY DOSE FOUR TABLETS tramadol 50 mg tablet TAKE ONE TABLET BY MOUTH EVERY 6 HOURS NEEDED FOR PAIN MAX DAILY DOSE FOUR TABLETS completed tramadol hydrochloride 50 MG Oral Tablet MAR[facility]IA ([facility]) Estradiol 0.1 MG/ML Vaginal Cream estradiol 0.01% (0.1 mg/gram) vaginal cream estradiol 0.01% (0.1 mg/gram) vaginal cream completed estradiol 0.1 MG/ML Vaginal Cream MARILIA ([facility]) Estradiol 0.1 MG/ML Vaginal Cream estradiol 0.01% (0.1 mg/gram) vaginal cream estradiol 0.01% (0.1 mg/gram) vaginal cream completed estradiol 0.1 MG/ML Vaginal Cream MARILIA ([facility]) Prednisone 20 MG Oral Tablet prednisone 20 mg tablet TAKE ONE TABLET BY MOUTH ONCE DAILY FOR FIVE DAYS prednisone 20 mg tablet TAKE ONE TABLET BY MOUTH ONCE DAILY FOR FIVE DAYS completed pr ednisone 20 MG Oral Tablet MARILIA ([facility]) Doxycycline Monohydrate 100 MG Oral Caps ule doxycycline monohydrate 100 mg capsule TAKE ONE CAPSULE BY MOUTH TWICE DAILY FOR SEVEN DAYS doxycycline monohydrate 100 mg capsule TAKE ONE CAPSULE BY MOUTH TWICE DAILY FOR SEVEN DAYS completed doxycycline mo nohydrate 100 MG Oral Capsule MARILIA ([facility]) Methylprednisolone 4 MG Oral Tablet methylprednisolone 4 mg tablet 1 tab daily methylprednisolone 4 mg tablet 1 tab daily completed methylprednisolone 4 MG Oral Tablet MARILIA ([facility]) Ciprofloxacin 250 MG Oral Tablet ciprofl oxacin 250 mg tablet TAKE ONE TABLET BY MOUTH TWICE DAILY FOR 3 DAYS ciprofloxacin 250 mg tablet TAKE ONE TAB LET BY MOUTH TWICE DAILY FOR 3 DAYS completed ciprofloxacin 250 MG Oral Tablet MARILIA ([facility]) Methylprednisolone 2 MG Oral Tablet [Med rol] Medrol 2 mg tablet 1 tablet every other day Medrol 2 mg tablet 1 tablet every other day completed methylprednisolone 2 MG Oral Tablet [Medrol] MARILIA ([facility]) Amoxicillin 500 MG / Clavulanate 125 MG Oral Tablet amoxicillin 500 mg-potassium clavulanate 125 mg tablet TAKE ONE TABLET BY MOUTH EVERY TWELVE HOURS amoxicillin 500 mg-potassium clavulanate 125 mg tablet TAKE ONE TABLET BY MOUTH EVERY TWELVE HOURS completed amoxicillin 500 MG / clavulanate 125 MG Oral Tablet MARILIA ([facility]) cefdinir 300 MG Oral Capsule cefdinir 300 mg capsule cefdinir 30 0 mg capsule completed cefdinir 300 M G Oral Capsule MARILIA ([facility]) Doxycycline Monohydrate 100 MG Oral Caps ule doxycycline monohydrate 100 mg capsule TAKE ONE CAPSULE BY MOUTH TWICE DAILY FOR SEVEN DAYS doxycycline monohydrate 100 mg capsule TAKE ONE CAPSULE BY MOUTH TWICE DAILY FOR SEVEN DAYS completed doxycycline mo nohydrate 100 MG Oral Capsule MARILIA ([facility]) Prednisone 20 MG Oral Tablet prednisone 20 mg tablet TAKE ONE TABLET BY MOUTH ONCE DAILY FOR FIVE DAYS prednisone 20 mg tablet TAKE ONE TABLET BY MOUTH ONCE DAILY FOR FIVE DAYS completed pr ednisone 20 MG Oral Tablet MARILIA ([facility]) Estradiol 0.1 MG/ML Vaginal Cream estradiol 0.01% (0.1 mg/gram) vaginal cream estradiol 0.01% (0.1 mg/gram) vaginal cream completed estradiol 0.1 MG/ML Vaginal Cream MARILIA ([facility]) Amoxicillin 500 MG / Clavulanate 125 MG Oral Tablet amoxicillin 500 mg-potassium clavulanate 125 mg tablet TAKE ONE TABLET BY MOUTH EVERY TWELVE HOURS amoxicillin 500 mg-potassium clavulanate 125 mg tablet TAKE ONE TABLET BY MOUTH EVERY TWELVE HOURS completed amoxicillin 500 MG / clavulanate 125 MG Oral Tablet MARILIA ([facility]) 0.3 ML Enoxaparin sodium 100 MG/ML Prefi lled Syringe enoxaparin 30 mg/0.3 mL subcutaneous syringe INJECT 0.3 MILLILITERS SUBCUTANEOUSLY EVERY 12 HOURS FOR TWO WEEKS enoxaparin 30 mg/0.3 mL subcutaneous syr travis INJECT 0.3 MILLILITERS SUBCUTANEOUSLY EVERY 12 HOURS FOR TWO WEEKS completed 0.3 ML enoxaparin sodium 100 MG/ML Prefilled Syringe MRAILIA ([facility]) Doxycycline Monohydrate 100 MG Oral Caps ule doxycycline monohydrate 100 mg capsule TAKE ONE CAPSULE BY MOUTH TWICE DAILY FOR SEVEN DAYS doxycycline monohydrate 100 mg capsule TAKE ONE CAPSULE BY MOUTH TWICE DAILY FOR SEVEN DAYS completed doxycycline mo nohydrate 100 MG Oral Capsule MARILIA ([facility]) Methylprednisolone 4 MG Oral Tablet methylprednisolone 4 mg tablet 1 tab daily methylprednisolone 4 mg tablet 1 tab daily completed methylprednisolone 4 MG Oral Tablet MARILIA ([facility]) glimepiride 2 MG Oral Tablet glimepiride 2 mg tablet TAKE ONE TABLET BY MOUTH @8AM and TAKE ONE TABLET @8PM glimepiride 2 mg tablet TAKE ONE TABLET BY MOUTH @8AM and TAKE ONE TABLET @8PM complete d glimepiride 2 MG Oral Tablet MARILIA ([facility]) Ciprofloxacin 250 MG Oral Tablet ciprofl oxacin 250 mg tablet TAKE ONE TABLET BY MOUTH TWICE DAILY FOR 3 DAYS ciprofloxacin 250 mg tablet TAKE ONE TAB LET BY MOUTH TWICE DAILY FOR 3 DAYS completed ciprofloxacin 250 MG Oral Tablet MARILIA ([facility]) Acetaminophen 325 MG / Oxycodone Hydroch loride 5 MG Oral Tablet oxycodone- acetaminophen 5 mg-325 mg tablet oxycodone-acetaminophen 5 mg-325 mg tablet completed acetaminop hen 325 MG / oxycodone hydrochloride 5 MG Oral Tablet MARILIA ([facility]) glimepiride 1 MG Oral Tablet glimepiride 1 mg tablet glimepiride 1 mg tablet completed glimepiride 1 MG Oral Tablet MARILIA ([facility]) tramadol hydrochloride 50 MG Oral Tablet tramadol 50 mg tablet TAKE ONE TABLET BY MOUTH EVERY 6 HOURS NEEDED FOR PAIN MAX DAILY DOSE FOUR TABLETS tramadol 50 mg tablet TAKE ONE TABLET BY MOUTH EVERY 6 HOURS NEEDED FOR PAIN MAX DAILY DOSE FOUR TABLETS completed tramadol hydrochloride 50 MG Oral Tablet MARILIA ([facility]) Oxycodone Hydrochloride 5 MG Oral Tablet oxycodone 5 mg tablet TAKE 1 TO 2 TABLETS BY MOUTH EVERY FOUR HOURS NEEDED FOR PAIN MAX DAILY DOSE 12 CAPSULES oxycodone 5 mg tablet TAKE 1 TO 2 TABLETS BY MOUTH EVERY FOUR HOURS NEEDED FOR PAIN MAX DAILY DOSE 12 CAPSULES co mpleted oxycodone hydrochloride 5 MG Oral Tablet MARILIA ([facility]) Oxycodone Hydrochloride 5 MG Oral Tablet oxycodone 5 mg tablet TAKE 1 TO 2 TABLETS BY MOUTH EVERY FOUR HOURS NEEDED FOR PAIN MAX DAILY DOSE 12 CAPSULES oxycodone 5 mg tablet TAKE 1 TO 2 TABLETS BY MOUTH EVERY FOUR HOURS NEEDED FOR PAIN MAX DAILY DOSE 12 CAPSULES co mpleted oxycodone hydrochloride 5 MG Oral Tablet MARILIA ([facility]) Methylprednisolone 2 MG Oral Tablet [Med rol] Medrol 2 mg tablet 1 tablet every other day Medrol 2 mg tablet 1 tablet every other day completed methylprednisolone 2 MG Oral Tablet [Medrol] MARILIA ([facility]) tramadol hydrochloride 50 MG Oral Tablet tramadol 50 mg tablet TAKE ONE TABLET BY MOUTH EVERY 6 HOURS NEEDED FOR PAIN MAX DAILY DOSE FOUR TABLETS tramadol 50 mg tablet TAKE ONE TABLET BY MOUTH EVERY 6 HOURS NEEDED FOR PAIN MAX DAILY DOSE FOUR TABLETS completed tramadol hydrochloride 50 MG Oral Tablet MARILIA ([facility]) Doxycycline Monohydrate 100 MG Oral Caps ule doxycycline monohydrate 100 mg capsule TAKE ONE CAPSULE BY MOUTH TWICE DAILY FOR SEVEN DAYS doxycycline monohydrate 100 mg capsule TAKE ONE CAPSULE BY MOUTH TWICE DAILY FOR SEVEN DAYS completed doxycycline mo nohydrate 100 MG Oral Capsule MARILIA ([facility]) Methylprednisolone 2 MG Oral Tablet [Med rol] Medrol 2 mg tablet 1 tablet every other day Medrol 2 mg tablet 1 tablet every other day completed methylprednisolone 2 MG Oral Tablet [Medrol] MARILIA ([facility]) Methylprednisolone 4 MG Oral Tablet methylprednisolone 4 mg tablet 1 tab daily methylprednisolone 4 mg tablet 1 tab daily completed methylprednisolone 4 MG Oral Tablet MARILIA ([facility]) Acetaminophen 325 MG / Oxycodone Hydroch loride 5 MG Oral Tablet oxycodone- acetaminophen 5 mg-325 mg tablet oxycodone-acetaminophen 5 mg-325 mg tablet completed acetaminop hen 325 MG / oxycodone hydrochloride 5 MG Oral Tablet MARILIA ([facility]) Methylprednisolone 2 MG Oral Tablet [Med rol] Medrol 2 mg tablet 1 tablet every other day Medrol 2 mg tablet 1 tablet every other day completed methylprednisolone 2 MG Oral Tablet [Medrol] MARILIA ([facility]) tramadol hydrochloride 50 MG Oral Tablet tramadol 50 mg tablet TAKE ONE TABLET BY MOUTH EVERY 6 HOURS NEEDED FOR PAIN MAX DAILY DOSE FOUR TABLETS tramadol 50 mg tablet TAKE ONE TABLET BY MOUTH EVERY 6 HOURS NEEDED FOR PAIN MAX DAILY DOSE FOUR TABLETS completed tramadol hydrochloride 50 MG Oral Tablet MARILIA ([facility]) Alprazolam 1 MG Oral Tablet alprazolam 1 mg tablet alprazolam 1 mg ta blet completed alprazolam 1 MG Oral Tablet MARILIA ([facility]) Amoxicillin 500 MG / Clavulanate 125 MG Oral Tablet amoxicillin 500 mg-potassium clavulanate 125 mg tablet TAKE ONE TABLET BY MOUTH EVERY TWELVE HOURS amoxicillin 500 mg-potassium clavulanate 125 mg tablet TAKE ONE TABLET BY MOUTH EVERY TWELVE HOURS completed amoxicillin 500 MG / clavulanate 125 MG Oral Tablet MARILIA ([facility]) Estradiol 0.1 MG/ML Vaginal Cream estradiol 0.01% (0.1 mg/gram) vaginal cream estradiol 0.01% (0.1 mg/gram) vaginal cream completed estradiol 0.1 MG/ML Vaginal Cream MARILIA ([facility]) Prednisone 20 MG Oral Tablet prednisone 20 mg tablet TAKE ONE TABLET BY MOUTH ONCE DAILY FOR FIVE DAYS prednisone 20 mg tablet TAKE ONE TABLET BY MOUTH ONCE DAILY FOR FIVE DAYS completed pr ednisone 20 MG Oral Tablet MARILIA ([facility]) Acetaminophen 325 MG / Oxycodone Hydroch loride 5 MG Oral Tablet oxycodone- acetaminophen 5 mg-325 mg tablet oxycodone-acetaminophen 5 mg-325 mg tablet completed acetaminop hen 325 MG / oxycodone hydrochloride 5 MG Oral Tablet MARILIA ([facility]) 0.3 ML Enoxaparin sodium 100 MG/ML Prefi lled Syringe enoxaparin 30 mg/0.3 mL subcutaneous syringe INJECT 0.3 MILLILITERS SUBCUTANEOUSLY EVERY 12 HOURS FOR TWO WEEKS enoxaparin 30 mg/0.3 mL subcutaneous syr travis INJECT 0.3 MILLILITERS SUBCUTANEOUSLY EVERY 12 HOURS FOR TWO WEEKS completed 0.3 ML enoxaparin sodium 100 MG/ML Prefilled Syringe MARILIA ([facility]) Amoxicillin 500 MG / Clavulanate 125 MG Oral Tablet amoxicillin 500 mg-potassium clavulanate 125 mg tablet TAKE ONE TABLET BY MOUTH EVERY TWELVE HOURS amoxicillin 500 mg-potassium clavulanate 125 mg tablet TAKE ONE TABLET BY MOUTH EVERY TWELVE HOURS completed amoxicillin 500 MG / clavulanate 125 MG Oral Tablet MARILIA ([facility]) Methylprednisolone 2 MG Oral Tablet [Med rol] Medrol 2 mg tablet 1 tablet every other day Medrol 2 mg tablet 1 tablet every other day completed methylprednisolone 2 MG Oral Tablet [Medrol] MARILIA ([facility]) Cyclobenzaprine hydrochloride 5 MG Oral Tablet cyclobenzaprine 5 mg tablet TAKE ONE TABLET BY MOUTH @8AM and TAKE ONE TABLET @12PM and TAKE ONE TABLET @8PM cyclobenzaprine 5 mg tablet TAKE ONE TABLET BY MOUTH @8AM and TAKE ONE TABLET @12PM and TAKE ONE TABLET @8PM complet ed cyclobenzaprine hydrochloride 5 MG Oral Tablet MAIRLIA ([facility]) Acetaminophen 325 MG / Oxycodone Hydroch loride 5 MG Oral Tablet oxycodone- acetaminophen 5 mg-325 mg tablet oxycodone-acetaminophen 5 mg-325 mg tablet completed acetaminop hen 325 MG / oxycodone hydrochloride 5 MG Oral Tablet MARILIA ([facility]) Ciprofloxacin 250 MG Oral Tablet ciprofl oxacin 250 mg tablet TAKE ONE TABLET BY MOUTH TWICE DAILY FOR 3 DAYS ciprofloxacin 250 mg tablet TAKE ONE TAB LET BY MOUTH TWICE DAILY FOR 3 DAYS completed ciprofloxacin 250 MG Oral Tablet MARILIA ([facility]) Oxycodone Hydrochloride 5 MG Oral Tablet oxycodone 5 mg tablet TAKE 1 TO 2 TABLETS BY MOUTH EVERY FOUR HOURS NEEDED FOR PAIN MAX DAILY DOSE 12 CAPSULES oxycodone 5 mg tablet TAKE 1 TO 2 TABLETS BY MOUTH EVERY FOUR HOURS NEEDED FOR PAIN MAX DAILY DOSE 12 CAPSULES co mpleted oxycodone hydrochloride 5 MG Oral Tablet MARILIA ([facility]) Ciprofloxacin 250 MG Oral Tablet ciprofl oxacin 250 mg tablet TAKE ONE TABLET BY MOUTH TWICE DAILY FOR 3 DAYS ciprofloxacin 250 mg tablet TAKE ONE TAB LET BY MOUTH TWICE DAILY FOR 3 DAYS completed ciprofloxacin 250 MG Oral Tablet MARILIA ([facility]) tramadol hydrochloride 50 MG Oral Tablet tramadol 50 mg tablet TAKE ONE TABLET BY MOUTH EVERY 6 HOURS NEEDED FOR PAIN MAX DAILY DOSE FOUR TABLETS tramadol 50 mg tablet TAKE ONE TABLET BY MOUTH EVERY 6 HOURS NEEDED FOR PAIN MAX DAILY DOSE FOUR TABLETS completed tramadol hydrochloride 50 MG Oral Tablet MARILIA ([facility]) Prednisone 20 MG Oral Tablet prednisone 20 mg tablet TAKE ONE TABLET BY MOUTH ONCE DAILY FOR FIVE DAYS prednisone 20 mg tablet TAKE ONE TABLET BY MOUTH ONCE DAILY FOR FIVE DAYS completed pr ednisone 20 MG Oral Tablet MARILIA ([facility]) Methylprednisolone 4 MG Oral Tablet methylprednisolone 4 mg tablet 1 tab daily methylprednisolone 4 mg tablet 1 tab daily completed methylprednisolone 4 MG Oral Tablet MARILIA ([facility]) cefdinir 300 MG Oral Capsule cefdinir 300 mg capsule cefdinir 30 0 mg capsule completed cefdinir 300 M G Oral Capsule MARILIA ([facility]) Estradiol 0.1 MG/ML Vaginal Cream estradiol 0.01% (0.1 mg/gram) vaginal cream estradiol 0.01% (0.1 mg/gram) vaginal cream completed estradiol 0.1 MG/ML Vaginal Cream MARILIA ([facility]) Methylprednisolone 4 MG Oral Tablet methylprednisolone 4 mg tablet 1 tab daily methylprednisolone 4 mg tablet 1 tab daily completed methylprednisolone 4 MG Oral Tablet MARILIA ([facility]) tramadol hydrochloride 50 MG Oral Tablet tramadol 50 mg tablet TAKE ONE TABLET BY MOUTH EVERY 6 HOURS NEEDED FOR PAIN MAX DAILY DOSE FOUR TABLETS tramadol 50 mg tablet TAKE ONE TABLET BY MOUTH EVERY 6 HOURS NEEDED FOR PAIN MAX DAILY DOSE FOUR TABLETS completed tramadol hydrochloride 50 MG Oral Tablet MARILIA ([facility]) glimepiride 2 MG Oral Tablet glimepiride 2 mg tablet TAKE ONE TABLET BY MOUTH @8AM and TAKE ONE TABLET @8PM glimepiride 2 mg tablet TAKE ONE TABLET BY MOUTH @8AM and TAKE ONE TABLET @8PM complete d glimepiride 2 MG Oral Tablet MARILIA ([facility]) Doxycycline Monohydrate 100 MG Oral Caps ule doxycycline monohydrate 100 mg capsule TAKE ONE CAPSULE BY MOUTH TWICE DAILY FOR SEVEN DAYS doxycycline monohydrate 100 mg capsule TAKE ONE CAPSULE BY MOUTH TWICE DAILY FOR SEVEN DAYS completed doxycycline mo nohydrate 100 MG Oral Capsule MARILIA ([facility]) Oxycodone Hydrochloride 5 MG Oral Tablet oxycodone 5 mg tablet TAKE 1 TO 2 TABLETS BY MOUTH EVERY FOUR HOURS NEEDED FOR PAIN MAX DAILY DOSE 12 CAPSULES oxycodone 5 mg tablet TAKE 1 TO 2 TABLETS BY MOUTH EVERY FOUR HOURS NEEDED FOR PAIN MAX DAILY DOSE 12 CAPSULES co mpleted oxycodone hydrochloride 5 MG Oral Tablet MARILIA ([facility]) Oxycodone Hydrochloride 5 MG Oral Tablet oxycodone 5 mg tablet TAKE 1 TO 2 TABLETS BY MOUTH EVERY FOUR HOURS NEEDED FOR PAIN MAX DAILY DOSE 12 CAPSULES oxycodone 5 mg tablet TAKE 1 TO 2 TABLETS BY MOUTH EVERY FOUR HOURS NEEDED FOR PAIN MAX DAILY DOSE 12 CAPSULES co mpleted oxycodone hydrochloride 5 MG Oral Tablet MAR[facility] ([facility]) Methylprednisolone 2 MG Oral Tablet [Med rol] Medrol 2 mg tablet 1 tablet every other day Medrol 2 mg tablet 1 tablet every other day completed methylprednisolone 2 MG Oral Tablet [Medrol] MARILIA ([facility]) Oxycodone Hydrochloride 5 MG Oral Tablet oxycodone 5 mg tablet TAKE 1 TO 2 TABLETS BY MOUTH EVERY FOUR HOURS NEEDED FOR PAIN MAX DAILY DOSE 12 CAPSULES oxycodone 5 mg tablet TAKE 1 TO 2 TABLETS BY MOUTH EVERY FOUR HOURS NEEDED FOR PAIN MAX DAILY DOSE 12 CAPSULES co mpleted oxycodone hydrochloride 5 MG Oral Tablet MARILIA ([facility]) Methylprednisolone 4 MG Oral Tablet methylprednisolone 4 mg tablet 1 tab daily methylprednisolone 4 mg tablet 1 tab daily completed methylprednisolone 4 MG Oral Tablet MARILIA ([facility] [facility]) Doxycycline Monohydrate 100 MG Oral Caps ule doxycycline monohydrate 100 mg capsule TAKE ONE CAPSULE BY MOUTH TWICE DAILY FOR SEVEN DAYS doxycycline monohydrate 100 mg capsule TAKE ONE CAPSULE BY MOUTH TWICE DAILY FOR SEVEN DAYS completed doxycycline mo nohydrate 100 MG Oral Capsule MARILIA ([facility]) glimepiride 1 MG Oral Tablet glimepiride 1 mg tablet glimepiride 1 mg tablet completed glimepiride 1 MG Oral Tablet MARILIA ([facility] [facility]) Oxycodone Hydrochloride 5 MG Oral Tablet oxycodone 5 mg tablet TAKE 1 TO 2 TABLETS BY MOUTH EVERY FOUR HOURS NEEDED FOR PAIN MAX DAILY DOSE 12 CAPSULES oxycodone 5 mg tablet TAKE 1 TO 2 TABLETS BY MOUTH EVERY FOUR HOURS NEEDED FOR PAIN MAX DAILY DOSE 12 CAPSULES co mpleted oxycodone hydrochloride 5 MG Oral Tablet MAR[facility] ([facility]) cefdinir 300 MG Oral Capsule cefdinir 300 mg capsule cefdinir 30 0 mg capsule completed cefdinir 300 M G Oral Capsule MARILIA ([facility]) Prednisone 20 MG Oral Tablet prednisone 20 mg tablet TAKE ONE TABLET BY MOUTH ONCE DAILY FOR FIVE DAYS prednisone 20 mg tablet TAKE ONE TABLET BY MOUTH ONCE DAILY FOR FIVE DAYS completed pr ednisone 20 MG Oral Tablet MAR[facility] ([facility]) Estradiol 0.1 MG/ML Vaginal Cream estradiol 0.01% (0.1 mg/gram) vaginal cream estradiol 0.01% (0.1 mg/gram) vaginal cream completed estradiol 0.1 MG/ML Vaginal Cream MARILIA ([facility]) 0.3 ML Enoxaparin sodium 100 MG/ML Prefi lled Syringe enoxaparin 30 mg/0.3 mL subcutaneous syringe INJECT 0.3 MILLILITERS SUBCUTANEOUSLY EVERY 12 HOURS FOR TWO WEEKS enoxaparin 30 mg/0.3 mL subcutaneous syr travis INJECT 0.3 MILLILITERS SUBCUTANEOUSLY EVERY 12 HOURS FOR TWO WEEKS completed 0.3 ML enoxaparin sodium 100 MG/ML Prefilled Syringe MARILIA ([facility]) 0.3 ML Enoxaparin sodium 100 MG/ML Prefi lled Syringe enoxaparin 30 mg/0.3 mL subcutaneous syringe INJECT 0.3 MILLILITERS SUBCUTANEOUSLY EVERY 12 HOURS FOR TWO WEEKS enoxaparin 30 mg/0.3 mL subcutaneous syr travis INJECT 0.3 MILLILITERS SUBCUTANEOUSLY EVERY 12 HOURS FOR TWO WEEKS completed 0.3 ML enoxaparin sodium 100 MG/ML Prefilled Syringe MARILIA ([facility]) Amoxicillin 500 MG / Clavulanate 125 MG Oral Tablet amoxicillin 500 mg-potassium clavulanate 125 mg tablet TAKE ONE TABLET BY MOUTH EVERY TWELVE HOURS amoxicillin 500 mg-potassium clavulanate 125 mg tablet TAKE ONE TABLET BY MOUTH EVERY TWELVE HOURS completed amoxicillin 500 MG / clavulanate 125 MG Oral Tablet MARILIA ([facility]) Acetaminophen 325 MG / Oxycodone Hydroch loride 5 MG Oral Tablet oxycodone- acetaminophen 5 mg-325 mg tablet oxycodone-acetaminophen 5 mg-325 mg tablet completed acetaminop hen 325 MG / oxycodone hydrochloride 5 MG Oral Tablet MARILIA ([facility]) 0.3 ML Enoxaparin sodium 100 MG/ML Prefi lled Syringe enoxaparin 30 mg/0.3 mL subcutaneous syringe INJECT 0.3 MILLILITERS SUBCUTANEOUSLY EVERY 12 HOURS FOR TWO WEEKS enoxaparin 30 mg/0.3 mL subcutaneous syr travis INJECT 0.3 MILLILITERS SUBCUTANEOUSLY EVERY 12 HOURS FOR TWO WEEKS completed 0.3 ML enoxaparin sodium 100 MG/ML Prefilled Syringe MARILIA ([facility]) Ciprofloxacin 250 MG Oral Tablet ciprofl oxacin 250 mg tablet TAKE ONE TABLET BY MOUTH TWICE DAILY FOR 3 DAYS ciprofloxacin 250 mg tablet TAKE ONE TAB LET BY MOUTH TWICE DAILY FOR 3 DAYS completed ciprofloxacin 250 MG Oral Tablet MARILIA ([facility]) tramadol hydrochloride 50 MG Oral Tablet tramadol 50 mg tablet TAKE ONE TABLET BY MOUTH EVERY 6 HOURS NEEDED FOR PAIN MAX DAILY DOSE FOUR TABLETS tramadol 50 mg tablet TAKE ONE TABLET BY MOUTH EVERY 6 HOURS NEEDED FOR PAIN MAX DAILY DOSE FOUR TABLETS completed tramadol hydrochloride 50 MG Oral Tablet MARILIA ([facility]) tramadol hydrochloride 50 MG Oral Tablet tramadol 50 mg tablet TAKE ONE TABLET BY MOUTH EVERY 6 HOURS NEEDED FOR PAIN MAX DAILY DOSE FOUR TABLETS tramadol 50 mg tablet TAKE ONE TABLET BY MOUTH EVERY 6 HOURS NEEDED FOR PAIN MAX DAILY DOSE FOUR TABLETS completed tramadol hydrochloride 50 MG Oral Tablet MARILIA ([facility]) Methylprednisolone 4 MG Oral Tablet methylprednisolone 4 mg tablet 1 tab daily methylprednisolone 4 mg tablet 1 tab daily completed methylprednisolone 4 MG Oral Tablet MARILIA ([facility]) Methylprednisolone 2 MG Oral Tablet [Med rol] Medrol 2 mg tablet 1 tablet every other day Medrol 2 mg tablet 1 tablet every other day completed methylprednisolone 2 MG Oral Tablet [Medrol] MARILIA ([facility]) Estradiol 0.1 MG/ML Vaginal Cream estradiol 0.01% (0.1 mg/gram) vaginal cream estradiol 0.01% (0.1 mg/gram) vaginal cream completed estradiol 0.1 MG/ML Vaginal Cream MARILIA ([facility]) Ciprofloxacin 250 MG Oral Tablet ciprofl oxacin 250 mg tablet TAKE ONE TABLET BY MOUTH TWICE DAILY FOR 3 DAYS ciprofloxacin 250 mg tablet TAKE ONE TAB LET BY MOUTH TWICE DAILY FOR 3 DAYS completed ciprofloxacin 250 MG Oral Tablet MARILIA ([facility]) Estradiol 0.1 MG/ML Vaginal Cream estradiol 0.01% (0.1 mg/gram) vaginal cream estradiol 0.01% (0.1 mg/gram) vaginal cream completed estradiol 0.1 MG/ML Vaginal Cream MARILIA ([facility]) glimepiride 2 MG Oral Tablet glimepiride 2 mg tablet TAKE ONE TABLET BY MOUTH @8AM and TAKE ONE TABLET @8PM glimepiride 2 mg tablet TAKE ONE TABLET BY MOUTH @8AM and TAKE ONE TABLET @8PM complete d glimepiride 2 MG Oral Tablet MARILIA ([facility]) Oxycodone Hydrochloride 5 MG Oral Tablet oxycodone 5 mg tablet TAKE 1 TO 2 TABLETS BY MOUTH EVERY FOUR HOURS NEEDED FOR PAIN MAX DAILY DOSE 12 CAPSULES oxycodone 5 mg tablet TAKE 1 TO 2 TABLETS BY MOUTH EVERY FOUR HOURS NEEDED FOR PAIN MAX DAILY DOSE 12 CAPSULES co mpleted oxycodone hydrochloride 5 MG Oral Tablet MARILIA ([facility]) Ciprofloxacin 250 MG Oral Tablet ciprofl oxacin 250 mg tablet TAKE ONE TABLET BY MOUTH TWICE DAILY FOR 3 DAYS ciprofloxacin 250 mg tablet TAKE ONE TAB LET BY MOUTH TWICE DAILY FOR 3 DAYS completed ciprofloxacin 250 MG Oral Tablet MARILIA ([facility]) Acetaminophen 325 MG / Oxycodone Hydroch loride 5 MG Oral Tablet oxycodone- acetaminophen 5 mg-325 mg tablet oxycodone-acetaminophen 5 mg-325 mg tablet completed acetaminop hen 325 MG / oxycodone hydrochloride 5 MG Oral Tablet MARILIA ([facility]) Prednisone 20 MG Oral Tablet prednisone 20 mg tablet TAKE ONE TABLET BY MOUTH ONCE DAILY FOR FIVE DAYS prednisone 20 mg tablet TAKE ONE TABLET BY MOUTH ONCE DAILY FOR FIVE DAYS completed pr ednisone 20 MG Oral Tablet MARILIA ([facility]) Ciprofloxacin 250 MG Oral Tablet ciprofl oxacin 250 mg tablet TAKE ONE TABLET BY MOUTH TWICE DAILY FOR 3 DAYS ciprofloxacin 250 mg tablet TAKE ONE TAB LET BY MOUTH TWICE DAILY FOR 3 DAYS completed ciprofloxacin 250 MG Oral Tablet MARILIA ([facility]) Estradiol 0.1 MG/ML Vaginal Cream estradiol 0.01% (0.1 mg/gram) vaginal cream estradiol 0.01% (0.1 mg/gram) vaginal cream completed estradiol 0.1 MG/ML Vaginal Cream MARILIA ([facility]) Amoxicillin 500 MG / Clavulanate 125 MG Oral Tablet amoxicillin 500 mg-potassium clavulanate 125 mg tablet TAKE ONE TABLET BY MOUTH EVERY TWELVE HOURS amoxicillin 500 mg-potassium clavulanate 125 mg tablet TAKE ONE TABLET BY MOUTH EVERY TWELVE HOURS completed amoxicillin 500 MG / clavulanate 125 MG Oral Tablet MARILIA ([facility]) Amoxicillin 500 MG / Clavulanate 125 MG Oral Tablet amoxicillin 500 mg-potassium clavulanate 125 mg tablet TAKE ONE TABLET BY MOUTH EVERY TWELVE HOURS amoxicillin 500 mg-potassium clavulanate 125 mg tablet TAKE ONE TABLET BY MOUTH EVERY TWELVE HOURS completed amoxicillin 500 MG / clavulanate 125 MG Oral Tablet MARILIA ([facility]) Methylprednisolone 2 MG Oral Tablet [Med rol] Medrol 2 mg tablet 1 tablet every other day Medrol 2 mg tablet 1 tablet every other day completed methylprednisolone 2 MG Oral Tablet [Medrol] MARILIA ([facility]) glimepiride 1 MG Oral Tablet glimepiride 1 mg tablet glimepiride 1 mg tablet completed glimepiride 1 MG Oral Tablet MARILIA ([facility]) Acetaminophen 325 MG / Oxycodone Hydroch loride 5 MG Oral Tablet oxycodone- acetaminophen 5 mg-325 mg tablet oxycodone-acetaminophen 5 mg-325 mg tablet completed acetaminop hen 325 MG / oxycodone hydrochloride 5 MG Oral Tablet MARILIA ([facility]) Ciprofloxacin 250 MG Oral Tablet ciprofl oxacin 250 mg tablet TAKE ONE TABLET BY MOUTH TWICE DAILY FOR 3 DAYS ciprofloxacin 250 mg tablet TAKE ONE TAB LET BY MOUTH TWICE DAILY FOR 3 DAYS completed ciprofloxacin 250 MG Oral Tablet MARILIA ([facility]) Alprazolam 1 MG Oral Tablet alprazolam 1 mg tablet alprazolam 1 mg ta blet completed alprazolam 1 MG Oral Tablet MARILIA ([facility]) Doxycycline Monohydrate 100 MG Oral Caps ule doxycycline monohydrate 100 mg capsule TAKE ONE CAPSULE BY MOUTH TWICE DAILY FOR SEVEN DAYS doxycycline monohydrate 100 mg capsule TAKE ONE CAPSULE BY MOUTH TWICE DAILY FOR SEVEN DAYS completed doxycycline mo nohydrate 100 MG Oral Capsule MARILIA ([facility]) Oxycodone Hydrochloride 5 MG Oral Tablet oxycodone 5 mg tablet TAKE 1 TO 2 TABLETS BY MOUTH EVERY FOUR HOURS NEEDED FOR PAIN MAX DAILY DOSE 12 CAPSULES oxycodone 5 mg tablet TAKE 1 TO 2 TABLETS BY MOUTH EVERY FOUR HOURS NEEDED FOR PAIN MAX DAILY DOSE 12 CAPSULES co mpleted oxycodone hydrochloride 5 MG Oral Tablet MARILIA ([facility]) Ciprofloxacin 250 MG Oral Tablet ciprofl oxacin 250 mg tablet TAKE ONE TABLET BY MOUTH TWICE DAILY FOR 3 DAYS ciprofloxacin 250 mg tablet TAKE ONE TAB LET BY MOUTH TWICE DAILY FOR 3 DAYS completed ciprofloxacin 250 MG Oral Tablet MARILIA ([facility]) glimepiride 1 MG Oral Tablet glimepiride 1 mg tablet glimepiride 1 mg tablet completed glimepiride 1 MG Oral Tablet MARILIA ([facility]) Methylprednisolone 2 MG Oral Tablet [Med rol] Medrol 2 mg tablet 1 tablet every other day Medrol 2 mg tablet 1 tablet every other day completed methylprednisolone 2 MG Oral Tablet [Medrol] MARILIA ([facility]) Methylprednisolone 4 MG Oral Tablet methylprednisolone 4 mg tablet 1 tab daily methylprednisolone 4 mg tablet 1 tab daily completed methylprednisolone 4 MG Oral Tablet MARILIA ([facility]) Acetaminophen 325 MG / Oxycodone Hydroch loride 5 MG Oral Tablet oxycodone- acetaminophen 5 mg-325 mg tablet oxycodone-acetaminophen 5 mg-325 mg tablet completed acetaminop hen 325 MG / oxycodone hydrochloride 5 MG Oral Tablet MARILIA ([facility]) tramadol hydrochloride 50 MG Oral Tablet tramadol 50 mg tablet TAKE ONE TABLET BY MOUTH EVERY 6 HOURS NEEDED FOR PAIN MAX DAILY DOSE FOUR TABLETS tramadol 50 mg tablet TAKE ONE TABLET BY MOUTH EVERY 6 HOURS NEEDED FOR PAIN MAX DAILY DOSE FOUR TABLETS completed tramadol hydrochloride 50 MG Oral Tablet MARILIA ([facility]) Insurance Providers Payer name Policy type / Coverage type Policy ID Covered libertarian ID Covered libertarian's relationship to leonard Policy Leonard Plan Information [place] Med[place] Part [place] [id number] 1880.0 Self [id number] [place] Medig[place] Part B [id number] Self [facility] Community Plan Commercial [id number] Self [id number] [facility] Hmo Blue Option Medigap Part B [id number] Self VY [id number] [place] Hmo Blue Option Medigap Part B [id number] Self [id number] [id number] [place] Hmo Blue Option Medigap Part B [id number] Self VY [id number] [place] Hmo Blue Option Medigap Part B [id number] Self [id number] [id number] [facility] Community Plan Commercial [id number] Self [id number] [place] Hmo Blue Option Medigap Part B [id number] Self VY [id number] [facility] [place] Hmo Blue Option Medigap Part B [id number] Self [id number] [id number] [facility] Community Plan Commercial [id number] Self [id number] [place] Hmo Blue Option Medigap Part B [id number] Self VY [id number] [facility] [place] Hmo Blue Option Medigap Part B [id number] Self VY [id number] [facility] Community Plan Commercial [id number] Self [id number] [place] Hmo Blue Option Medigap Part B [id number] [id number] Self VY [id number] [facility] [place] Hmo Blue Option Medigap Part B [id number] [id number] Self VY [id number] [facility] Community Plan Commercial [id number] [id number] [id number] Self [id number] [facility] [place] Hmo Blue Option Medigap Part B [id number] Self VY [id number] [facility] [place] Hmo Blue Option Medigap Part B [id number] [id number] Self VY [id number] [facility] [place] Hmo Blue Option Medigap Part B [id number] [id number] Self VY [id number] [facility] [place] Hmo Blue Option Medigap Part B [id number] Self [place] Hmo Blue Option Medigap Part B [id number] Self [id number] [facility] [place] Hmo Blue Option Medigap Part B [id number] Self VY [id number] [facility] Community Plan Commercial [id number] Self [id number] [facility] Community Plan Commercial [id number] Self [id number] [facility] Community Plan Commercial [id number] [id number] Self [id number] [facility] Community Plan Commercial [id number] Self [facility] Comm Plan Medicaid F [id number] SELF [id number] [facility] Community Plan Commercial [id number] Self [id number] [facility] Comm Plan Medicaid F [id number] SELF [id number] [facility] Comm Plan Medicaid F [id number] SELF [id number] Medicaid Dental S [id number] S [id number] UHC I [id number] Self [id number] UHC I [id number] Self [id number] [place] Insurance (NF) Workers Compensation [id number] 30 [id number] [place] Insurance (NF) Workers Compensation [id number] [facility] Comm Plan Medicaid F [id number] SELF [id number] UNHC COMMUNITY PLAN MCDHMO [id number] SP [id number] [facility] [id number] SP [id number] UH COMMUNITY PLAN [id number] SP [id number] UNHC COMMUNITY PLAN MCDHMO [id number] SP [id number] UNHC COMMUNITY PLAN MCDHMO [id number] SP [id number] UNHC COMMUNITY PLAN MCDHMO [id number] SP [id number] UH COMMUNITY PLAN [id number] SP [id number] [facility] Health Maintenance Organization (HMO) [id number] Self [id number] UN COMMUNITY PLAN MCDHMO [id number] SP [id number] UHC COMMUNITY PLAN [id number] SP 1 [id number] SELF PAY UHC COMMUNITY PLAN [id number] SP 1 [id number] SELF PAY SELF PAY UHC COMMUNITY PLAN [id number] SP 1 [id number] SELF PAY UHC COMMUNITY PLAN [id number] SP 1 [id number] SELF PAY UHC COMMUNITY PLAN [id number] SP 1 [id number] UHC COMMUNITY PLAN [id number] SP 1 [id number] SELF PAY UHC COMMUNITY PLAN [id number] SP [id number] SELF PAY UHC COMMUNITY PLAN [id number] SP [id number] SELF PAY ANSI-Not a Secondary Insurance [id number] ANSI-Not a Secondary Insurance [id number] ANSI-Medicaid [id number] ANSI-Medicaid [id number] ANSI-Not a Secondary Insurance [id number] ANSI-Not a Secondary Insurance [id number] ANSI-Medicaid [id number] ANSI-Not a Secondary Insurance [id number] ANSI-Medicaid [id number] ANSI-Not a Secondary Insurance [id number] ANSI-Medicaid [id number] [place] [facility] Part B [id number] 1880.0 Self [id number] ANSI-Medicaid [id number] ANSI-Not a Secondary Insurance [id number] ANSI-Medicaid [id number] ANSI-Not a Secondary Insurance [id number] ANSI-Medicaid [id number] ANSI-Not a Secondary Insurance [id number] ANSI-Not a Secondary Insurance [id number] ANSI-Medicaid [id number] ANSI-Medicaid [id number] ANSI-Not a Secondary Insurance [id number] ANSI-Medicaid [id number] ANSI-Not a Secondary Insurance [id number] [place] Part [place] [id number] 1880.0 Self [id number] [place] Med[place] Part [place] [id number] 1880.0 Self [id number] [employer] MEDICA[employer] MCD HMO [id number] S [id number] [place] Part [place] [id number] 1880.0 Self [id number] [employer] MEDICAID MCD HMO [id number] S [id number] [facility] COMMUNITY PLAN [id number] SP [id number] [place] Part [place] [id number] 1880.0 Self [id number] [place] Med[place] Part [place] [id number] 1880.0 Self [id number] [facility] HEA [id number] 1 [id number] [facility] [id number] SP [id number] [facility] COMMUNITY PLAN [facility] [id number] SP [id number] [facility] Plan - Medicaid Medicaid primitivo: [id number] Self primitivo: [id number] [place] Med[place] Part B [id number] Self D Managed Care [facility] P [id number] S [id number] [employer] [id number] SP [id number] [employer] NO FAULT [id number] SP [id number] 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 [id number] S [id number] [employer] O [id number] O [id number] [facility] Community Plan-Caid Medicaid [id number] Self [employer] NO FAULT [id number] SP [id number] STATE [employer] INS NO FAULT [id number] SP [id number] [employer] [place] [id number] BLUE CROSS [employer] PLAN [id number] SP [id number] MEDICAID P [id number] S [id number] [employer]CE[employer] BCBS P [id number] S [id number] HMO BLUE [id number] SP [id number] UNHC COMMUNITY PLAN MCDHMO [id number] SP [id number] UNHC COMMUNITY PLAN MCDHMO [id number] SP [id number] [facility] O [id number] S [id number] ANSI-Medicaid [id number] ANSI-Not a Secondary Insurance [id number] ANSI-Medicaid [id number] ANSI-Not a Secondary Insurance [id number] [facility] Comm Plan - Medicaid Medicaid [id number] Self [id number] ANSI-Not a Secondary Insurance [id number] ANSI-Medicaid [id number] ANSI-Medicaid [id number] ANSI-Not a Secondary Insurance [id number] ANSI-Medicaid [id number] ANSI-Not a Secondary Insurance [id number] ANSI-Not a Secondary Insurance -[id number] ANSI-Medicaid [id number] ANSI-Not a Secondary Insurance [id number] ANSI-Medicaid [id number] ANSI-Not a Secondary Insurance [id number] ANSI-Medicaid [id number] ANSI-Not a Secondary Insurance [id number] ANSI-Medicaid [id number] ANSI-Medicaid [id number] ANSI-Not a Secondary Insurance [id number] ANSI-Medicaid [id number] ANSI-Not a Secondary Insurance [id number] ANSI-Not a Secondary Insurance [id number] ANSI-Medicaid [id number] ANSI-Not a Secondary Insurance [id number] ANSI-Medicaid [id number] ANSI-Not a Secondary Insurance [id number] ANSI-Medicaid [id number] ANSI-Not a Secondary Insurance [id number] ANSI-Medicaid [id number] ANSI-Medicaid [id number] ANSI-Not a Secondary Insurance [id number] ANSI-Not a Secondary Insurance [id number] ANSI-Medicaid [id number] ANSI-Not a Secondary Insurance [id number] ANSI-Medicaid [id number] ANSI-Medicaid [id number] ANSI-Not a Secondary Insurance [id number] ANSI-Not a Secondary Insurance [id number] ANSI-Medicaid [id number] ANSI-Not a Secondary Insurance [id number] ANSI-Medicaid [id number] ANSI-Not a Secondary Insurance [id number] ANSI-Medicaid [id number] ANSI-Medicaid [id number] ANSI-Not a Secondary Insurance [id number] ANSI-Medicaid [id number] ANSI-Not a Secondary Insurance [id number] ANSI-Medicaid [id number] ANSI-Not a Secondary Insurance [id number] Medicaid [facility] Part B [id number] Self [id number] ANSI-Medicaid [id number] ANSI-Not a Secondary Insurance [id number] ANSI-Medicaid [id number] ANSI-Not a Secondary Insurance [id number] ANSI-Not a Secondary Insurance [id number] [facility] [id number] [facility]-Medicaid [id number] Problems, Conditions, and Diagnoses Code Display Name Description Problem Type Effective Dates Data Source(s) N95.2 Postmenopausal atrophic vaginitis N95.2 - Postmenopausal atrophic vaginitis Diagnosis 08/11/2020 11:00:00 PM EDT [facility] R30.0 Dysuria R30.0 - Dysuria Diagnosis 07/14/2020 11:00:00 PM EDT [place] [employer] 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, 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 N31.0 - Uninhibited neuropathic bladder, not elsewhere classified Diagnosis 04/07/2020 09:05:00 PM EST [place] Z87.440 Personal history of urinary (tract) infe ctions Z87.440 - Personal history of urinary (tract) infections Diagnosis 04/07/2020 09:05:00 PM EST [place] R35.0 Frequency of micturition R35.0 - Frequency of micturit ion Diagnosis 01/10/2020 11:00:00 PM EST [place] R31.0 Gross hematuria R31.0 - Gross hematuria Diagnosis 1 11:00:00 PM EDT [facility] R04.0 [id number] Recurrent epistaxis Problem 11/14/2020 12:00 :00 AM EDT eCW1 ([facility]) D50.9 Iron deficiency anemia Anemia, iron deficiency Problem 07/04/2020 12:00:00 AM EDT eCW1 ([facility]) K59.00 [id number] Constipation, unspecified constipation ty pe Problem 05/26/2020 12:00:00 AM EDT eCW1 ([facility]) F41.9 [id number] Anxiety Problem 05/12/2020 12:00:00 AM ES T eCW1 ([facility]) Surgeries/Procedures Procedure Description Date Indications Data Source(s) ECG ROUTINE ECG W/LEAST 12 LDS W/I&R 11/14/2020 12:00: 00 AM EDT eCW1 ([facility]) RADIOLOGIC EXAMINATION KNEE 3 VIEWS 10/23/2020 12:00:0 0 AM EDT [facility] ([facility]) ARTHROCENTESIS ASPIR&/INJECTION MAJOR JT/BURSA 021 12:00:00 AM EDT MED[facility] ([facility]) OFFICE OUTPATIENT VISIT 25 MINUTES 10/23/2020 12:00:00 AM EDT [facility] ([facility]) RADIOLOGIC EXAMINATION KNEE 3 VIEWS 10/23/2020 12:00:0 0 AM EDT [facility] ([facility]) OFFICE OUTPATIENT NEW 45 MINUTES 10/15/2020 12:00:00 A M EDT MED[facility] ([facility], ) OFFICE OUTPATIENT VISIT 25 MINUTES 10/08/2020 12:00:00 AM EDT [facility] ([facility], ) Spirometry 10/08/2020 12:00:00 AM EDT M EDENT ([facility]) US RETROPERITONEAL REAL TIME W/IMAGE LIMITED 12:00:00 AM EDT [facility] ([facility]) US RETROPERITONEAL REAL TIME W/IMAGE LIMITED 12:00:00 AM EDT [facility] ([facility]) ARTHROCENTESIS ASPIR&/INJECTION MAJOR JT/BURSA 021 12:00:00 AM EDT MEDENT ([facility]) Cystourethroscopy,/W Injects For Chemodenervation Of The Leonel dder 07/23/2020 12:00:00 AM EDT [facility] ([facility]) Cystourethroscopy, W/[employer] Cryosurgery Or Laser Garza rg 07/23/2020 12:00:00 AM EDT [facility] ([facility]) INSJ NON-NDWELLG BLADDER CATHETER 07/14/2020 12:00:00 AM EDT [facility] ([facility]) INSJ NON-NDWELLG BLADDER CATHETER 04/07/2020 12:00:00 AM EST [facility] ([facility]) INSJ NON-NDWELLG BLADDER CATHETER 04/07/2020 12:00:00 AM EST [facility] ([facility]) ARTHROCENTESIS ASPIR&/INJECTION MAJOR JT/BURSA 021 12:00:00 AM EST MEDENT ([facility]) INSJ NON-NDWELLG BLADDER CATHETER 01/10/2020 12:00:00 AM EST [facility] ([facility]) CYSTOURETHROSCOPY 12/11/2019 12:00:00 AM EDT [facility] ([facility]) BLDR IRRIGATION SMPL LAVAGE&/INSTLJ 12/11/2019 12:00:0 0 AM EDT [facility] ([facility]) Cystourethroscopy,/W Injects For [employer] dder 11/27/2019 12:00:00 AM EDT [facility] ([facility]) Cystourethroscopy, W/[employer] Cryosurgery Or Laser Garza rg 11/27/2019 12:00:00 AM EDT [facility] ([facility]) Results ID Date Data Source [id number] 11/26/2020 11:30:00 AM EDT [facility] Name Value Range Interpretation Code Description Data Tashia rce(s) Supporting Document(s) SARS-CoV-2 (COVID-19) RNA [Presence] in Respiratory specimen by PHANI with probe detection Not Detected [facility] This lab was ordered by [facility] and reported by [employer] ID Date Data Source Comprehensive Metabolic Profile (CMP) 11/14/2020 12:00:00 AM EDT eCW1 ([facility]) Name Value Range Interpretation Code Description Data Tashia rce(s) Supporting Document(s) 64 70-100 GLUCOSE, FASTING eCW1 ([facility]) 15 7-18 BLOOD UREA NITROGEN eCW1 ([facility]) 0.72 0.55-1.30 CREATININE FOR GFR eCW1 ([facility]) > 60.0 >45 GLOMERULAR FILTRATION RATE eCW 1 ([facility]) 137 136-145 SODIUM LEVEL eCW1 ([facility]) 102 98-107 CHLORIDE LEVEL eCW1 ([facility]) 4.3 3.5-5.1 POTASSIUM SERUM eCW1 ([facility]) 28 21-32 CARBON DIOXIDE LEVEL eCW1 ([facility]) 8.8 8.8-10.2 CALCIUM LEVEL eCW1 ([facility]) 21 7-37 AST/SGOT eCW1 ([facility]) 30 12-78 ALT/SGPT eCW1 ([facility]) 95 45-117 ALKALINE PHOSPHATASE eCW1 ([facility]) 0.9 0.2-1.0 BILIRUBIN,TOTAL eCW1 ([facility]) 6.8 6.4-8.2 TOTAL PROTEIN eCW1 ([facility]) 3.3 3.2-5.2 ALBUMIN eCW1 ([facility]) 0.9 1.2-2.2 ALBUMIN/GLOBULIN RATIO eCW1 ([facility]) ID Date Data Source CBC with Differential 11/14/2020 12:00:00 AM EDT eCW1 ([facility]) Name Value Range Interpretation Code Description Data Tashia rce(s) Supporting Document(s) 8.1 4.0-10.0 WHITE BLOOD COUNT eCW1 ([facility]) 3.63 4.00-5.40 RED BLOOD COUNT eCW1 ([facility]) 9.5 12.0-15.5 HEMOGLOBIN eCW1 ([facility]) 86.2 80.0-96.0 MEAN CORPUSCULAR VOLUME e CW1 ([facility]) 31.3 36.0-47.0 HEMATOCRIT eCW1 ([facility]) 30.4 32.0-36.5 MEAN CORPUSCULAR HGB CONC eCW1 ([facility]) 26.2 27.0-33.0 MEAN CORPUSCULAR HEMOGLOB IN eCW1 ([facility]) 15.8 11.5-14.5 RED CELL DISTRIBUTION WID TH eCW1 ([facility]) 342 150-450 PLATELET COUNT, AUTOMATED eCW1 ([facility]) 51.9 36.0-66.0 NEUTROPHILS % eCW1 ([facility]) 5.0 2.0-8.0 MONO % eCW1 ([facility]) 39.4 24.0-44.0 LYMPH % eCW1 ([facility]) 0.9 0.0-1.0 BASO % eCW1 ([facility]) 2.4 0.0-3.0 EOS % eCW1 ([facility]) 4.2 1.5-8.5 NEUTROPHILS # eCW1 ([facility]) 3.2 1.5-5.0 LYMPH # eCW1 ([facility]) 0.2 0.0-0.5 EOS # eCW1 ([facility]) 0.4 0.0-0.8 MONO # eCW1 ([facility]) 0.1 0.0-0.2 BASO # eCW1 ([facility]) ID Date Data Source PT & APTT 11/14/2020 12:00:00 AM EDT eCW1 ([facility]) Name Value Range Interpretation Code Description Data Tashia rce(s) Supporting Document(s) 12.5 12.7-14.5 PROTHROMBIN TIME eCW1 ([facility]) 0.89 INR eCW1 ([facility]) 27.5 25.9-37.0 PARTIAL THROMBOPLASTIN TI ME eCW1 ([facility]) ID Date Data Source NT-PRO BNP 11/14/2020 12:00:00 AM EDT eCW1 ([facility]) Name Value Range Interpretation Code Description Data Tashia rce(s) Supporting Document(s) 57 <125 NT-PRO BNP eCW1 ([facility]) ID Date Data Source FREE T4 & TSH PANEL 11/14/2020 12:00:00 AM EDT eCW1 ([facility]) Name Value Range Interpretation Code Description Data Tashia rce(s) Supporting Document(s) 1.320 0.358-3.740 THYROID STIMULATING HORM ONE eCW1 ([facility]) 1.10 0.76-1.46 FREE T4 eCW1 ([facility]) ID Date Data Source FERRITIN 11/14/2020 12:00:00 AM EDT eCW1 ([facility]) Name Value Range Interpretation Code Description Data Tashia rce(s) Supporting Document(s) 8 8-252 FERRITIN eCW1 ([facility]) ID Date Data Source URINE CULTURE 11/14/2020 12:00:00 AM EDT eCW1 ([facility]) Name Value Range Interpretation Code Description Data Tashia rce(s) Supporting Document(s) Laboratory studies (set) URINE CULTU RE eCW1 ([facility]) ID Date Data Source UA URINALYSIS 11/14/2020 12:00:00 AM EDT eCW1 ([facility]) Name Value Range Interpretation Code Description Data Tashia rce(s) Supporting Document(s) Laboratory studies (set) UA URINALYS IS eCW1 ([facility]) ID Date Data Source MAGNESIUM LEVEL 11/14/2020 12:00:00 AM EDT eCW1 ([facility]) Name Value Range Interpretation Code Description Data Tashia rce(s) Supporting Document(s) 2.0 1.8-2.4 MAGNESIUM LEVEL eCW1 ([facility]) ID Date Data Source [id number] 10/21/2020 04:25:00 PM EDT [facility] Name Value Range Interpretation Code Description Data Tashia rce(s) Supporting Document(s) White Blood Count 7.7 10 4.0-10.0 Normal (applies to non-numeri c results) [facility], ) Red Blood Count 4.17 10 4.00-5.40 Normal (applies to non-numeric results) [facility] ([facility], ) Hemoglobin 11.0 g/dL 12.0-15.5 Below low normal [facility] ( [facility]) Hematocrit 35.5 % 36.0-47.0 Below low normal [facility] ( [facility]) Mean Corpuscular Hemoglobin 26.4 pg 27.0-33.0 Below low normal [facility] ([facility]) Mean Corpuscular Volume 85.1 fl 80.0-96.0 Normal ( applies to non-numeric results) [facility] ([facility]) Mean Corpuscular HGB Conc 31.0 g/dL 32.0-36.5 Below low normal [facility] ([facility]) Red Cell Distribution Width 15.9 % 11.5-14.5 Above high normal [facility] ([facility]) Platelet Count, Automated 346 10 150-450 Normal (applies to non-numeric results) [facility] ([facility]) Nucleated Red Blood Cell % 0.0 % 0-0 Normal (applies to n on-numeric results) [facility] ([facility]) 11/11/20 (TueNov 11) 09:16 AM MICHAEL ABERNATHY Continues to have anemia. Will further evaluate. ID Date Data Source [id number] 10/21/2020 04:25:00 PM EDT [facility] ([facility]) Name Value Range Interpretation Code Description Data Tashia rce(s) Supporting Document(s) Iron (Fe) 35 ug/dL 50-170 Below low normal [facility] ( [facility]) Total Iron Binding Capacity 487 ug/dL 250-450 Above high normal [facility]) Percent Saturation 7.2 % 13.2-45.0 Below low normal [facility] ([facility]) 11/11/20 (TueNov 11) 09:16 AM MICHAEL ABERNATHY Iron deficiency noted. Continue to take iron supplement as directed. Will further evaluate. ID Date Data Source [id number] 10/21/2020 04:25:00 PM EDT [facility] ([facility]) Name Value Range Interpretation Code Description Data Tashia rce(s) Supporting Document(s) Urea nitrogen [Mass/volume] in Serum or Plasma 14 mg/dL 7 -18 Normal (applies to non-numeric results) [facility]) ID Date Data Source [id number] 10/21/2020 04:25:00 PM EDT [facility]) Name Value Range Interpretation Code Description Data Tashia rce(s) Supporting Document(s) Creatinine For GFR 0.72 mg/dL 0.55-1.30 Normal (applies to non -numeric results) [facility]) Glomerular Filtration Rate Laboratory test result Normal (applies to non- numeric results) [facility]) <content>Units are mL/min/1.73 m2</content>
<content></content>
<content>Chronic Kidney Disease Staging per NKF:</content>
<content></content>
<content>Stage I & II GFR >=60 Normal to Mildly Decreased</content>
<content>Stage III GFR 30- 59 Moderately Decreased</content>
<content>Stage IV GFR 15-29 Severely Decreased</content>
<content>Stage V GFR <15 Very Little GFR Left</content>
<content>ESRD GFR <15 on COMMERCIAL ACCOUNTANT</content>
<content></content> ID Date Data Source [id number] 10/20/2020 12:00:00 AM [facility] Name Value Range Interpretation Code Description Data Tashia rce(s) Supporting Document(s) ID Date Data Source [id number] 10/20/2020 12:00:00 AM EDT [facility]) Name Value Range Interpretation Code Description Data Tashia rce(s) Supporting Document(s) SARS-CoV-2 (COVID-19) RNA [Presence] in Respiratory specimen by PHANI with probe detection negative negative Sars-cov-2 [facility] [employer] [facility]) ID Date Data Source [id number] 10/20/2020 12:00:00 AM EDT [facility] Name Value Range Interpretation Code Description Data Tashia rce(s) Supporting Document(s) SARS-CoV-2 NEGATIVE [facility] This lab was ordered by [facility] and reported by [employer]. ID Date Data Source [id number] 10/08/2020 09:54:00 AM EDT MEDENT ([facility], ) Name Value Range Interpretation Code Description Data Tashia rce(s) Supporting Document(s) PDFReport Laboratory test result MEDENT ([facility], ) FVC-Pred 3.44 L MEDENT ([facility]) FVC-%Pred-Pre 69 L MEDENT ([facility]) FVC-Pre 2.38 L MEDENT ([facility]) Fev1-Pred 2.64 L MEDENT ([facility]) FVC-LLN 2.70 L [facility] ([facility]) Fev1-Pre 1.77 L [facility] ([facility]) Fev1-%Pred-Pre 67 L MEDENT ([facility]) Fev1-LLN 2.01 L MEDENT ([facility]) Fev6-Pre 2.35 L MED[facility] ([facility]) Fev6-Pred 3.31 L MED[facility] ([facility]) Fev6-LLN 2.59 L MEDENT ([facility]) Fev6-%Pred-Pre 71 L MEDENT ([facility]) Pfc5gct-Gjix 77 % [facility] ([facility]) Mct1ywx-Vaw 74 % [facility] ([facility]) Tvp7kqe-JMN 67 % [facility] ([facility]) Hfc8yla-%Pred-Pre 96 % MEDENT ([facility]) Rfr3tpq-%Pred-Pre 102 % MEDENT ([facility]) Nam6epi-Vor 99 % [facility] ([facility]) Hky9cqy-Jxgx 96 % MEDENT ([facility], ) FEFMax-Pre 5.14 L/E/sec MEDENT ([facility]) FEFMax-Pred 6.37 L/E/sec MED[facility] ([facility]) FEFMax-%Pred-Pre 80 L/E/sec MEDENT ([facility]) FEFMax-LLN 4.55 L/E/sec MED[facility] ([facility]) Rnh9188-%Pred-Pre 56 L/E/sec MEDENT ([facility]) Uyb2533-Ychh 2.29 L/E/sec MEDENT ([facility]) Tav7821-Kob 1.30 L/E/sec MEDENT ([facility]) ExpTime-Pre 7.83 sec MEDENT ([facility]) Qwx9952-EQG 0.97 L/E/sec MED[facility] ([facility]) Xpc8cxg7-Euhs 80 % MED[facility] ([facility]) Ciy8gmc5-Rqf 75 % [facility] ([facility]) Jrx6edv3-%Pred-Pre 93 % MEDENT ([facility]) Ggf2kqi9-RSJ 71 % [facility] ([facility]) ID Date Data Source [id number] 08/11/2020 04:02:00 PM EDT [facility] Name Value Range Interpretation Code Description Data Tashia rce(s) Supporting Document(s) Linda sp rRNA [Presence] in Vaginal fluid by DNA probe Lab oratory test result Abnormal (applies to non-numeric results) [facility] ([facility]) Gardnerella By Dna Probe Laboratory test result [facility] ([facility]) Trichomonas vaginalis rRNA [Presence] in Genital speci men by DNA probe Laboratory test result [facility] ([facility]) TESTING PERFORMED BY NUCLEIC ACID HYBRID IZATION ID Date Data Source [id number] 08/11/2020 04:02:00 PM EDT [facility] Name Value Range Interpretation Code Description Data Tashia rce(s) Supporting Document(s) Bacteria identified in Vaginal fluid by Aerobe culture Laborator y test result MED[facility] ([facility]) ID Date Data Source [id number] 08/12/2020 12:21:00 PM EDT [facility] Name Value Range Interpretation Code Description Data Tashia rce(s) Supporting Document(s) LINDA BY DNA PROBE POSITIVE NEGATIVE [facility] GARDNERELLA BY DNA PROBE NEGATIVE NEGATIVE [facility] TRICHOMONAS BY DNA PROBE NEGATIVE NEGATIVE [facility] TESTING PERFORMED BY NUCLEIC ACID HYBRI DIZATION ID Date Data Source [id number] 08/11/2020 03:39:00 PM EDT [facility] ([facility]) Name Value Range Interpretation Code Description Data Tashia rce(s) Supporting Document(s) Protein [Presence] in Urine by Test strip 30 mg/dL [facility] ([facility]) Glucose [Presence] in Urine 100 mg/dL [facility] ([facility]) Ua Nitrite Laboratory test result [facility] D[facility] ([facility]) Ua Leuko Laboratory test result [facility] ([facility] Color of Urine Laboratory test result [facility] ([facility]) Blood [Presence] in Urine by Visual Laboratory test result [facility] ([facility]) Ketones [Presence] in Urine by Test strip Laboratory test result [facility] ([facility]) Clarity of Urine Laboratory test result [facility] ([facility]) pH of Urine by Test strip 7.0 5.0-7.5 [facility] ([facility]) Ua Specific [place] 1.020 1.003-1.030 MEDE NT ([facility]) Urobilinogen [Mass/volume] in Urine by Test strip 0.2 E.U./dL 0.0-1.0 MED[facility] ([facility]) Bilirubin.total [Presence] in Urine by Test strip Laboratory test res ult [facility] ([facility]) ID Date Data Source [id number] 08/11/2020 12:00:00 AM EDT MARILIA ([facility]) Name Value Range Interpretation Code Description Data Tashia rce(s) Supporting Document(s) ID Date Data Source [id number] 08/11/2020 12:00:00 AM EDT [facility] Name Value Range Interpretation Code Description Data Tashia rce(s) Supporting Document(s) [facility] This lab was ordered by [facility]-C[facility] and reported by [facility]. ID Date Data Source [id number] 08/11/2020 12:00:00 AM EDT MARILIA ([facility]) Name Value Range Interpretation Code Description Data Tashia rce(s) Supporting Document(s) ID Date Data Source [id number] 08/11/2020 12:00:00 AM EDT MARIL[facility] ([facility]) Name Value Range Interpretation Code Description Data Tashia rce(s) Supporting Document(s) ID Date Data Source [id number] 07/23/2020 09:44:00 AM EDT [facility] ([facility]) Name Value Range Interpretation Code Description Data Tashia rce(s) Supporting Document(s) Glucose [Presence] in Urine Laboratory test result [facility] ([facility] [place]) Ua Nitrite Laboratory test result [facility] ([facility]) Protein [Presence] in Urine by Test strip Laboratory test result [facility] ([facility]) Ua Leuko Laboratory test result [facility] ([facility]) Blood [Presence] in Urine by Visual Laboratory test result [facility] ([facility]) Ketones [Presence] in Urine by Test strip Laboratory test result [facility] ([facility]) Color of Urine Laboratory test result [facility] ([facility]) Ua Specific Statham 1.025 1.003-1.030 MEDE NT ([facility]) Clarity of Urine Laboratory test result [facility] ([facility]) pH of Urine by Test strip 7.0 5.0-7.5 [facility] ([facility]) Bilirubin.total [Presence] in Urine by Test strip Laboratory test res ult [facility] ([facility]) Urobilinogen [Mass/volume] in Urine by Test strip 0.2 E.U./dL 0.0-1.0 [facility] ([facility]) ID Date Data Source [id number] 07/14/2020 03:26:00 PM EDT [facility] ([facility] Name Value Range Interpretation Code Description Data Tashia rce(s) Supporting Document(s) Bacteria identified in Urine by Culture Laboratory test result [facility] ([facility]) <content> --------</content>
<content>Run: 07/16/20 0832 INTERFACED REPORT</content>
<content> </content>
<content>Name: Cassie Jiang Age/Sex: 65/F Location: LAB</content>
<content>Acct: [id number] Unit: [id number] Status: REG REF Room/Bed:</content>
<content>Re07/14/20 Disch: Att Dr: Monica Bal MD</content>
<content> </content>
<content></content>
<content>Specimen #: [id number] Ordered : 07/14/2012/25/1809</content>
<content>Collected : 07/14/2012/26/1515 By: [...] REPORT </content>
<content></content> ID Date Data Source [id number] 07/16/2020 08:32:00 AM EDT [facility] Run: 07/16/20 0832 INTERFACED REPORT Name: Cassie Jiang Age/Sex: 65/F Location: [facility] Acct: [id number] Unit: [id number] Status: REG REF Room/Bed: Re07/14/20 Disch: Att Dr: Monica Bal MD Specimen #: [id number] Ordered : 07/14/2012/25/1809 Collected : 07/14/2012/26/1515 By: [...] rce(s) Supporting Document(s) ID Date Data Source [id number] 07/14/2020 03:15:00 PM EDT [facility] ([facility]) Name Value Range Interpretation Code Description Data Tashia rce(s) Supporting Document(s) Glucose [Presence] in Urine Laboratory test result [facility] ([facility]) Ua Nitrite Laboratory test result [facility] ([facility]) Protein [Presence] in Urine by Test strip 30 mg/dL [facility] ([facility]) Blood [Presence] in Urine by Visual Laboratory test result [facility] ([facility]) Ua Leuko Laboratory test result [facility] ([facility]) Clarity of Urine Laboratory test result [facility] ([facility]) Ketones [Presence] in Urine by Test strip Laboratory test result [facility] ([facility]) Color of Urine Laboratory test result [facility] ([facility]) pH of Urine by Test strip 5.0 5.0-7.5 [facility] ([facility]) Ua Specific Statham Laboratory test result 1.003-1.030 [facility] ([facility]) Bilirubin.total [Presence] in Urine by Test strip Laboratory test res ult [facility] ([facility]) Urobilinogen [Mass/volume] in Urine by Test strip 0.2 E.U./dL 0.0-1.0 [facility] ([facility]) ID Date Data Source [id number] 07/14/2020 03:07:00 PM EDT [facility] ([facility]) Name Value Range Interpretation Code Description Data Tashia rce(s) Supporting Document(s) Glucose [Presence] in Urine Laboratory test result [facility] ([facility]) Protein [Presence] in Urine by Test strip 30 mg/dL [facility] ([facility]) Ua Nitrite Laboratory test result [facility] ([facility] [place]) Ua Leuko Laboratory test result [facility] ([facility]) Blood [Presence] in Urine by Visual Laboratory test result [facility] ([facility]) Color of Urine Laboratory test result [facility] ([facility]) Clarity of Urine Laboratory test result [facility] ([facility]) Ketones [Presence] in Urine by Test strip Laboratory test result [facility] ([facility]) pH of Urine by Test strip 5.0 5.0-7.5 [facility] ([facility]) Ua Specific Statham Laboratory test result 1.003-1.030 [facility] ([facility]) Bilirubin.total [Presence] in Urine by Test strip Laboratory test res ult [facility] ([facility]) Urobilinogen [Mass/volume] in Urine by Test strip 0.2 E.U./dL 0.0-1.0 [facility] ([facility]) ID Date Data Source [id number] 07/04/2020 12:00:00 AM EDT eCW1 ([facility]) Name Value Range Interpretation Code Description Data Tashia rce(s) Supporting Document(s) Hemoglobin A1c/Hemoglobin.total in Blood 6.6 HEMOGLOBIN A1c eC ([facility]) ID Date Data Source LIPID PANEL (CARDIAC RISK) 07/04/2020 12:00:00 AM EDT eC1 ( [facility]) Name Value Range Interpretation Code Description Data Tashia rce(s) Supporting Document(s) Cholesterol [Moles/volume] in Serum or Plasma 156 <200 CHOLESTEROL LEVEL eCW1 ([facility]) Triglyceride [Mass/volume] in Serum or Plasma by calculation 92 <150 TRIGLYCERIDES LEVEL eCW1 ([facility]) Cholesterol in LDL [Mass/volume] in Serum or Plasma by calculation 65 <100 LDL CHOLESTEROL eCW1 ([facility]) Cholesterol in HDL [Moles/volume] in Serum or Plasma 73 >40 HDL CHOLESTEROL eCW1 ([facility]) 83 NON-HDL-C eCW1 ([facility]) 2.136 <5 CHOLESTEROL RISK RATIO eCW1 ([facility]) ID Date Data Source IRON (FE) 05/26/2020 12:00:00 AM EDT eCW1 ([facility]) Name Value Range Interpretation Code Description Data Tashia rce(s) Supporting Document(s) 46 50-170 eCW1 ([facility]) ID Date Data Source CBC with Auto Differential 05/26/2020 12:00:00 AM EDT eCW1 ( [facility]) Name Value Range Interpretation Code Description Data Tashia rce(s) Supporting Document(s) 33.8 36.0-47.0 eCW1 ([facility]) 10.8 12.0-15.5 eCW1 ([facility]) 7.7 4.0-10.0 eCW1 ([facility]) 89.9 80.0-96.0 eCW1 ([facility]) 3.76 4.00-5.40 eCW1 ([facility]) 14.1 11.5-14.5 eCW1 ([facility]) 32.0 32.0-36.5 eCW1 ([facility]) 28.7 27.0-33.0 eCW1 ([facility]) 343 150-450 eCW1 ([facility]) 4.7 0.0-3.0 eCW1 ([facility]) 32.1 24.0-44.0 eCW1 ([facility]) 6.1 2.0-8.0 eCW1 ([facility]) 55.9 36.0-66.0 eCW1 ([facility]) 0.0 0-0 eCW1 ([facility]) 4.3 1.5-8.5 eCW1 ([facility]) 0.4 0-3.0 eCW1 ([facility]) 0.8 0.0-1.0 eCW1 ([facility]) 0.1 0.0-0.2 eCW1 ([facility]) 2.5 1.5-5.0 eCW1 ([facility]) 0.5 0.0-0.8 eCW1 ([facility]) 0.4 0.0-0.5 eCW1 ([facility]) ID Date Data Source [id number] 05/12/2020 12:00:00 AM EST eCW1 ([facility]) Name Value Range Interpretation Code Description Data Tashia rce(s) Supporting Document(s) Microalbumin/Creatinine [Ratio] in Urine 8.9 0.0-30.0 eCW1 ([facility]) Albumin/Creatinine [Mass Ratio] in Urine 9.8 eCW1 ([facility]) Microalbumin/Creatinine [Mass Ratio] in Urine 109.0 eCW1 ([facility]) ID Date Data Source [id number] 04/29/2020 06:29:00 AM EST [facility] Name Value Range Interpretation Code Description Data Tashia rce(s) Supporting Document(s) SARS-CoV-2 (COVID 19) NEGATIVE - SARS-CoV-2 (COVID19) [facility] This lab was ordered by [facility] a nd reported by [facility]. ID Date Data Source [id number] 04/09/2020 10:42:00 AM EST [facility] Run: 04/09/20 1043 INTERFACED REPORT Name: Cassie Jiang Age/Sex: 64/F Location: [facility] Acct: [id number] Unit: [id number] Status: REG REF Room/Bed: Re04/07/20 Disch: Att Dr: Monica Bal MD Specimen #: [id number] Ordered : 04/07/2003/27/1856 Collected : 04/07/2003/27/1329 By: OFFICE Received: 04/07/2003/27/1856 By: CYNHTIA Source: URINE CATH Specimen Description: Procedure Result [...] rce(s) Supporting Document(s) ID Date Data Source [id number] 04/07/2020 01:30:00 PM EST [facility] ([facility]) Name Value Range Interpretation Code Description Data Tashia rce(s) Supporting Document(s) Glucose [Presence] in Urine Laboratory test result [facility] ([facility] [place]) Ua Nitrite Laboratory test result [facility] ([facility]) Protein [Presence] in Urine by Test strip Laboratory test result [facility] ([facility]) Ua Leuko Laboratory test result [facility] ([facility]) Blood [Presence] in Urine by Visual Laboratory test result [facility] ([facility]) Color of Urine Laboratory test result [facility] ([facility]) Ketones [Presence] in Urine by Test strip Laboratory test result [facility] ([facility]) Clarity of Urine Laboratory test result [facility] ([facility]) pH of Urine by Test strip 5.0 5.0-7.5 [facility] ([facility]) Ua Specific [place] 1.025 1.003-1.030 MEDE NT ([facility]) Bilirubin.total [Presence] in Urine by Test strip Laboratory test res ult [facility] ([facility]) Urobilinogen [Mass/volume] in Urine by Test strip 0.2 E.U./dL 0.0-1.0 MEDREMY ([facility] [place]) ID Date Data Source [id number] 04/07/2020 01:30:00 PM EST EVELYNE ([facility]) Name Value Range Interpretation Code Description Data Tashia rce(s) Supporting Document(s) Bacteria identified in Urine by Culture Laboratory test result MEDREMY ([facility]) <content>Run: 04/09/20 1043 INTERFACED REPORT</content>
<content> ntent>Name: Cassie Jiang Age/Sex: 64/F Location: [facility]</content>
<content>Acct: [id number] Unit: [id number] Status: REG REF Room/Bed:</content>
<content>Re04/07/20 Disch: Att Dr: Monica Bal MD</content>
<content> </content>
<content></content>
<content>Specimen #: [id number] Ordered : 04/07/2003/27/1856</content>
<content>Collected : 04/07/2003/27/1329 By: [...] REPORT </content>
<content></content> ID Date Data Source [id number] 04/07/2020 01:23:00 PM EST [facility] ([facility]) Name Value Range Interpretation Code Description Data Tashia rce(s) Supporting Document(s) Glucose [Presence] in Urine Laboratory test result [facility] ([facility] [place]) Protein [Presence] in Urine by Test strip Laboratory test result [facility] ([facility]) Ua Leuko Laboratory test result [facility] ([facility]) Ua Nitrite Laboratory test result [facility] ([facility] [place]) Color of Urine Laboratory test result [facility] ([facility]) Blood [Presence] in Urine by Visual Laboratory test result [facility] ([facility]) Ketones [Presence] in Urine by Test strip Laboratory test result [facility] ([facility]) Clarity of Urine Laboratory test result [facility] ([facility]) Ua Specific Statham Laboratory test result 1.003-1.030 MED[facility] ([facility]) pH of Urine by Test strip 5.0 5.0-7.5 [facility] ([facility]) Urobilinogen [Mass/volume] in Urine by Test strip 0.2 E.U./dL 0.0-1.0 [facility] ([facility]) Bilirubin.total [Presence] in Urine by Test strip Laboratory test res ult [facility] ([facility]) ID Date Data Source [id number] 03/26/2020 12:00:00 AM EST MARILIA ([facility]) Name Value Range Interpretation Code Description Data Tashia rce(s) Supporting Document(s) ID Date Data Source [id number] 03/26/2020 12:00:00 AM EST MARILIA ([facility]) Name Value Range Interpretation Code Description Data Tashia rce(s) Supporting Document(s) SARS-CoV-2 (COVID-19) RNA [Presence] in Respiratory specimen by PHANI with probe detection negative negative Sars-cov-2 MARILIA ([facility] [employer] [facility]) ID Date Data Source [id number] 03/26/2020 12:00:00 AM EST MARILIA ([facility]) Name Value Range Interpretation Code Description Data Tashia rce(s) Supporting Document(s) ID Date Data Source [id number] 03/26/2020 12:00:00 AM EST MARILIA ([facility]) Name Value Range Interpretation Code Description Data Tashia rce(s) Supporting Document(s) SARS-CoV-2 (COVID-19) RNA [Presence] in Respiratory specimen by PHANI with probe detection negative negative Sars-cov-2 MARILIA ([facility]) ID Date Data Source [id number] 03/26/2020 12:00:00 AM EST MARILIA ([facility]) Name Value Range Interpretation Code Description Data Tashia rce(s) Supporting Document(s) ID Date Data Source [id number] 03/26/2020 12:00:00 AM EST [facility] Name Value Range Interpretation Code Description Data Tashia rce(s) Supporting Document(s) SARS-CoV-2 NEGATIVE [facility] This lab was ordered by [facility] [employer] [facility]-C[facility] and reported by [facility]. ID Date Data Source [id number] 03/26/2020 12:00:00 AM EST MARILIA ([facility]) Name Value Range Interpretation Code Description Data Tashia rce(s) Supporting Document(s) SARS-CoV-2 (COVID-19) RNA [Presence] in Respiratory specimen by PHANI with probe detection negative negative Sars-cov-2 MARILIA ([facility]) ID Date Data Source [id number] 03/26/2020 12:00:00 AM EST MARILIA ([facility]) Name Value Range Interpretation Code Description Data Tashia rce(s) Supporting Document(s) ID Date Data Source [id number] 03/26/2020 12:00:00 AM EST MARILIA ([facility]) Name Value Range Interpretation Code Description Data Tashia rce(s) Supporting Document(s) SARS-CoV-2 (COVID-19) RNA [Presence] in Respiratory specimen by PHANI with probe detection negative negative Sars-cov-2 MARILIA ([facility]) ID Date Data Source [id number] 03/26/2020 12:00:00 AM EST MARILIA ([facility]) Name Value Range Interpretation Code Description Data Tashia rce(s) Supporting Document(s) ID Date Data Source [id number] 03/26/2020 12:00:00 AM EST MARILIA ([facility]) Name Value Range Interpretation Code Description Data Tashia rce(s) Supporting Document(s) SARS-CoV-2 (COVID-19) RNA [Presence] in Respiratory specimen by PHANI with probe detection negative negative Sars-cov-2 MARILIA ([facility]) ID Date Data Source [id number] 03/26/2020 12:00:00 AM EST MARILIA ([facility]) Name Value Range Interpretation Code Description Data Tashia rce(s) Supporting Document(s) ID Date Data Source [id number] 03/26/2020 12:00:00 AM EST MARILIA ([facility]) Name Value Range Interpretation Code Description Data Tashia rce(s) Supporting Document(s) SARS-CoV-2 (COVID-19) RNA [Presence] in Respiratory specimen by PHANI with probe detection negative negative Sars-cov-2 MARILIA ([facility]) ID Date Data Source [id number] 03/26/2020 12:00:00 AM EST MARILIA ([facility]) Name Value Range Interpretation Code Description Data Tashia rce(s) Supporting Document(s) ID Date Data Source [id number] 03/26/2020 12:00:00 AM EST MARILIA ([facility]) Name Value Range Interpretation Code Description Data Tashia rce(s) Supporting Document(s) SARS-CoV-2 (COVID-19) RNA [Presence] in Respiratory specimen by PHANI with probe detection negative negative Sars-cov-2 MARILIA ([facility]) ID Date Data Source [id number] 03/12/2020 10:08:00 AM EST MEDENT ([facility], ) Name Value Range Interpretation Code Description Data Tashia rce(s) Supporting Document(s) PDFReport Laboratory test result MEDENT ([facility], ) FVC-Pred 3.47 L MEDENT ([facility], ) FVC-%Pred-Pre 73 L MEDENT ([facility], ) FVC-Pre 2.54 L MEDENT ([facility]) FVC-LLN 2.73 L MEDENT ([facility]) Fev1-%Pred-Pre 72 L MEDENT ([facility]) Fev1-Pre 1.92 L MEDENT ([facility]) Fev1-Pred 2.67 L MEDENT ([facility]) Fev6-Pred 3.34 L MEDENT ([facility]) Fev1-LLN 2.04 L MEDENT ([facility]) Fev6-%Pred-Pre 75 L MEDENT ([facility], ) Tyy5eyq-Jzcv 77 % MEDENT ([facility]) Fev6-Pre 2.51 L MEDENT ([facility]) Fev6-LLN 2.62 L MEDENT ([facility]) Uzr3xwe-Ijg 76 % MEDENT ([facility]) Ihe9cfs-%Pred-Pre 97 % MEDENT ([facility]) Gbg4zct-CKX 68 % MEDENT ([facility]) Xhm3uag-%Pred-Pre 102 % MEDENT ([facility]) Awr9ppv-Tzte 96 % MEDENT ([facility]) Mlk5jgz-Zjr 99 % MEDENT ([facility]) FEFMax-Pre 5.72 L/E/sec MEDENT ([facility]) FEFMax-Pred 6.43 L/E/sec MEDENT ([facility]) FEFMax-%Pred-Pre 88 L/E/sec MEDENT ([facility]) Uhs3966-Nnqt 2.34 L/E/sec MEDENT ([facility]) FEFMax-LLN 4.61 L/E/sec MEDENT ([facility]) Gcf0781-Vvs 1.46 L/E/sec MEDENT ([facility]) Gmn6695-BLG 1.02 L/E/sec MED[facility] ([facility]) ExpTime-Pre 7.33 sec MEDENT ([facility]) Tyf8758-%Pred-Pre 62 L/E/sec MEDENT ([facility]) Ank0lue8-Eah 76 % MEDENT ([facility]) Wsp3pyj8-%Pred-Pre 95 % MEDENT ([facility]) Tlu0orx8-Nfkf 80 % MEDENT ([facility]) Jem0sve7-NYH 71 % MEDENT ([facility]) ID Date Data Source [id number] 01/11/2020 11:49:00 AM EST [facility] Name Value Range Interpretation Code Description Data Tashia rce(s) Supporting Document(s) LINDA BY DNA PROBE NEGATIVE NEGATIVE [facility] GARDNERELLA BY DNA PROBE POSITIVE NEGATIVE [facility] TRICHOMONAS BY DNA PROBE NEGATIVE NEGATIVE [facility] TESTING PERFORMED BY NUCLEIC ACID HYBRI DIZATION ID Date Data Source [id number] 01/10/2020 02:03:00 PM EST [facility] ([facility] Name Value Range Interpretation Code Description Data Tashia rce(s) Supporting Document(s) Bacteria identified in Vaginal fluid by Aerobe culture Laborator y test result [facility] ([facility]) ID Date Data Source [id number] 01/10/2020 02:03:00 PM EST [facility] ([facility]) Name Value Range Interpretation Code Description Data Tashia rce(s) Supporting Document(s) Gardnerella By Dna Probe Laboratory test result Abnormal (applies to non- numeric results) [facility] ([facility]) Linda sp rRNA [Presence] in Vaginal fluid by DNA probe Lab oratory test result [facility] ([facility]) Trichomonas vaginalis rRNA [Presence] in Genital speci men by DNA probe Laboratory test result [facility] ([facility]) TESTING PERFORMED BY NUCLEIC ACID HYBRID IZATION ID Date Data Source [id number] 01/12/2020 11:21:00 AM [facility] Run: 01/12/20 1121 INTERFACED REPORT Name: Cassie Jiang Age/Sex: 64/F Location: [facility] Acct: [id number] Unit: [id number] Status: REG REF Room/Bed: Re01/10/20 Disch: Att Dr: Amira Garg Specimen #: [id number] Ordered : 01/10/2007/24/1930 Collected : 01/10/2007/24/1401 By: [...] rce(s) Supporting Document(s) ID Date Data Source [id number] 01/10/2020 02:02:00 PM EST [facility] ([facility]) Name Value Range Interpretation Code Description Data Tashia rce(s) Supporting Document(s) Bacteria identified in Urine by Culture Laboratory test result [facility] ([facility]) <content> --------</content>
<content>Run: 01/12/20 1121 INTERFACED REPORT</content>
<content> </content>
<content>Name: Cassie Jiang Age/Sex: 64/F Location: [facility]</content>
<content>Acct: [id number] Unit: [id number] Status: REG REF Room/Bed:</content>
<content>Re01/10/20 Disch: Junior Dr: Amira Garg</content>
<content> </content>
<content></content>
<content>Specimen #: [id number] Ordered : 01/10/2007/24/1930</content>
<content>Collected : 01/10/2007/24/1401 By: [...] REPORT </content>
<content></content> ID Date Data Source [id number] 01/10/2020 02:01:00 PM EST [facility] ([facility]) Name Value Range Interpretation Code Description Data Tashia rce(s) Supporting Document(s) Glucose [Presence] in Urine Laboratory test result [facility] ([facility]) Protein [Presence] in Urine by Test strip Laboratory test result [facility] ([facility]) Ua Nitrite Laboratory test result ME DENT ([facility]) Ua Leuko Laboratory test result [facility]ENT ([facility]) Blood [Presence] in Urine by Visual Laboratory test result [facility] ([facility] [facility]) Ketones [Presence] in Urine by Test strip 15 mg/dL [facility] ([facility] [place]) Color of Urine Laboratory test result MEDENT ([facility] [employer] [employer] [facility]) pH of Urine by Test strip 6.5 5.0-7.5 MEDENT ([facility] [employer] [employer] [facility]) Ua Specific [place] 1.020 1.003-1.030 MEDE NT ([facility] [employer] [employer] [facility]) Clarity of Urine Laboratory test result [facility] ([facility] [employer] [facility]) Urobilinogen [Mass/volume] in Urine by Test strip 0.2 E.U./dL 0.0-1.0 [facility] ([facility] [employer] [facility]) Bilirubin.total [Presence] in Urine by Test strip Laboratory test res ult [facility]ENT ([facility] [employer] [employer] [facility]) ID Date Data Source [id number] 01/10/2020 01:44:00 PM EST [facility] ([facility]) Name Value Range Interpretation Code Description Data Tashia rce(s) Supporting Document(s) Glucose [Presence] in Urine Laboratory test result [facility]ENT ([facility] [employer] [employer] [facility]) Ua Nitrite Laboratory test result ME DENT ([facility] [employer] [facility]) Protein [Presence] in Urine by Test strip Laboratory test result MEDENT ([facility] [employer] [employer] [facility]) Ua Leuko Laboratory test result ME DENT ([facility] [employer] [facility]) Blood [Presence] in Urine by Visual Laboratory test result MEDENT ([facility] [employer] [facility]) Ketones [Presence] in Urine by Test strip 15 mg/dL [facility] ([facility] [employer] [facility]) Clarity of Urine Laboratory test result [facility]ENT ([facility] [employer] [facility]) Color of Urine Laboratory test result [facility]ENT ([facility] [employer] [facility]) Ua Specific [place] 1.025 1.003-1.030 MEDE NT ([facility] [employer] [facility]) pH of Urine by Test strip 6.0 5.0-7.5 [facility]ENT ([facility] [employer] [employer] [facility]) Urobilinogen [Mass/volume] in Urine by Test strip 0.2 E.U./dL 0.0-1.0 [facility] ([facility] [employer] [facility]) Bilirubin.total [Presence] in Urine by Test strip Laboratory test res ult [facility]ENT ([facility] [employer] [facility]) ID Date Data Source [id number] 12/13/2019 12:42:00 PM EDT [facility] Run: 12/13/19 1243 INTERFACED REPORT Name: Cassie Jiang Age/Sex: 64/F Location: [facility] Acct: [id number] Unit: [id number] Status: REG REF Room/Bed: Re12/11/19 Disch: Att Dr: Monica Bal MD Specimen #: [id number] Ordered : 12/11/1908/24/2102 Collected : 12/11/1908/25/1547 By: [...] rce(s) Supporting Document(s) ID Date Data Source [id number] 12/11/2019 03:48:00 PM EDT [facility] ([facility] [place]) Name Value Range Interpretation Code Description Data Tashia rce(s) Supporting Document(s) Bacteria identified in Urine by Culture Laboratory test result [facility] ([facility] [place]) <content> --------</content>
<content>Run: 12/13/19 1243 INTERFACED REPORT</content>
<content> </content>
<content>Name: Cassie Jiang Age/Sex: 64/F Location: LAB</content>
<content>Acct: [id number] Unit: [id number] Status: REG REF Room/Bed:</content>
<content>Re12/11/19 Disch: Att Dr: Monica Bal MD</content>
<content> </content>
<content></content>
<content>Specimen #: [id number] Ordered : 12/11/1908/24/2102</content>
<content>Collected : 12/11/1908/25/1547 By: [...] REPORT </content>
<content></content> ID Date Data Source [id number] 11/28/2019 12:00:00 AM EDT MARILIA ([facility]) Name Value Range Interpretation Code Description Data Tashia rce(s) Supporting Document(s) ID Date Data Source [id number] 11/28/2019 12:00:00 AM EDT [facility] Name Value Range Interpretation Code Description Data Tashia rce(s) Supporting Document(s) [facility] lab was ordered by [facility] [facility]-COVID19 and reported by [employer]. ID Date Data Source [id number] 11/28/2019 12:00:00 AM EDT MARILIA ([facility]) Name Value Range Interpretation Code Description Data Tashia rce(s) Supporting Document(s) ID Date Data Source [id number] 11/28/2019 12:00:00 AM EDT MARILIA ([facility]) Name Value Range Interpretation Code Description Data Tashia rce(s) Supporting Document(s) ID Date Data Source [id number] 11/28/2019 12:00:00 AM EDT MARILIA ([facility]) Name Value Range Interpretation Code Description Data Tashia rce(s) Supporting Document(s) ID Date Data Source [id number] 11/28/2019 12:00:00 AM EDT MARILIA ([facility]) Name Value Range Interpretation Code Description Data Tashia rce(s) Supporting Document(s) ID Date Data Source [id number] 11/28/2019 12:00:00 AM EDT MARILIA ([facility]) Name Value Range Interpretation Code Description Data Tashia rce(s) Supporting Document(s) ID Date Data Source [id number] 11/28/2019 12:00:00 AM EDT MARILIA ([facility]) Name Value Range Interpretation Code Description Data Tashia rce(s) Supporting Document(s) ID Date Data Source [id number] 11/28/2019 12:00:00 AM EDT MARILIA ([facility]) Name Value Range Interpretation Code Description Data Tashia rce(s) Supporting Document(s) ID Date Data Source [id number] 11/28/2019 12:00:00 AM EDT MARILIA ([facility]) Name Value Range Interpretation Code Description Data Tashia rce(s) Supporting Document(s) ID Date Data Source [id number] 11/28/2019 12:00:00 AM EDT MARILIA ([facility]) Name Value Range Interpretation Code Description Data Tashia rce(s) Supporting Document(s) ID Date Data Source [id number] 11/28/2019 12:00:00 AM EDT MARILIA ([facility]) Name Value Range Interpretation Code Description Data Tashia rce(s) Supporting Document(s) ID Date Data Source [id number] 11/27/2019 11:57:00 AM EDT [facility] ([facility]) Name Value Range Interpretation Code Description Data Tashia rce(s) Supporting Document(s) Protein [Presence] in Urine by Test strip Laboratory test result [facility] ([facility] [place]) Glucose [Presence] in Urine Laboratory test result [facility] ([facility] [employer] [facility]) Ua Nitrite Laboratory test result ME DENT ([facility] [employer] [facility]) Color of Urine Laboratory test result [facility] ([facility] [employer] [facility]) Ua Leuko Laboratory test result ME DENT ([facility] [employer] [employer] [facility]) Blood [Presence] in Urine by Visual Laboratory test result [facility]ENT ([facility] [employer] [facility]) Clarity of Urine Laboratory test result [facility] ([facility] [employer] [facility]) Ketones [Presence] in Urine by Test strip Laboratory test result [facility] ([facility] [employer] [facility]) Ua Specific [place] Laboratory test result 1.003-1.030 [facility] ([facility] [employer] [facility]) Urobilinogen [Mass/volume] in Urine by Test strip 0.2 E.U./dL 0.0-1.0 [facility] ([facility] [employer] [facility]) Bilirubin.total [Presence] in Urine by Test strip Laboratory test res ult [facility]ENT ([facility] [employer] [facility]) pH of Urine by Test strip 5.5 5.0-7.5 [facility] ([facility] [employer] [facility]) ID Date Data Source [id number] 11/23/2019 12:00:00 AM EDT MARILIA ([facility]) Name Value Range Interpretation Code Description Data Tashia rce(s) Supporting Document(s) ID Date Data Source [id number] 11/23/2019 12:00:00 AM EDT MARILIA ([facility]) Name Value Range Interpretation Code Description Data Tashia rce(s) Supporting Document(s) ID Date Data Source [id number] 11/23/2019 12:00:00 AM EDT [facility] Name Value Range Interpretation Code Description Data Tashia rce(s) Supporting Document(s) SARS-CoV-2 [facility] This lab was ordered by [facility] [employer] [facility]-C[facility] and reported by [employer]. ID Date Data Source [id number] 11/23/2019 12:00:00 AM EDT MARILIA ([facility]) Name Value Range Interpretation Code Description Data Tashia rce(s) Supporting Document(s) ID Date Data Source [id number] 11/23/2019 12:00:00 AM EDT [facility]ILIA ([facility]) Name Value Range Interpretation Code Description Data Tashia rce(s) Supporting Document(s) ID Date Data Source [id number] 11/23/2019 12:00:00 AM EDT [facility] ([facility]) Name Value Range Interpretation Code Description Data Tashia rce(s) Supporting Document(s) ID Date Data Source [id number] 11/23/2019 12:00:00 AM EDT [facility]IL[facility] ([facility]) Name Value Range Interpretation Code Description Data Tashia rce(s) Supporting Document(s) ID Date Data Source [id number] 11/23/2019 12:00:00 AM EDT [facility] ([facility]) Name Value Range Interpretation Code Description Data Tashia rce(s) Supporting Document(s) ID Date Data Source [id number] 11/23/2019 12:00:00 AM EDT [facility] ([facility]) Name Value Range Interpretation Code Description Data Tashia rce(s) Supporting Document(s) ID Date Data Source [id number] 11/23/2019 12:00:00 AM EDT [facility] ([facility]) Name Value Range Interpretation Code Description Data Tashia rce(s) Supporting Document(s) ID Date Data Source [id number] 11/23/2019 12:00:00 AM EDT [facility] ([facility]) Name Value Range Interpretation Code Description Data Tashia rce(s) Supporting Document(s) ID Date Data Source [id number] 11/23/2019 12:00:00 AM EDT [facility] ([facility]) Name Value Range Interpretation Code Description Data Tashia rce(s) Supporting Document(s) ID Date Data Source [id number] 11/23/2019 12:00:00 AM EDT [facility] ([facility]) Name Value Range Interpretation Code Description Data Tashia rce(s) Supporting Document(s) ID Date Data Source [id number] 11/02/2019 12:00:00 AM EDT [facility] Name Value Range Interpretation Code Description Data Tashia rce(s) Supporting Document(s) SARS-CoV-2 [facility] This lab was ordered by [facility] [employer] [facility]-C[facility] and reported by [employer]. ID Date Data Source [id number] 11/02/2019 12:00:00 AM EDT [facility] ([facility]) Name Value Range Interpretation Code Description Data Tashia rce(s) Supporting Document(s) ID Date Data Source [id number] 11/02/2019 12:00:00 AM EDT [facility] ([facility]) Name Value Range Interpretation Code Description Data Tashia rce(s) Supporting Document(s) ID Date Data Source [id number] 11/02/2019 12:00:00 AM EDT [facility] ([facility]) Name Value Range Interpretation Code Description Data Tashia rce(s) Supporting Document(s) ID Date Data Source [id number] 11/02/2019 12:00:00 AM EDT [facility] ([facility]) Name Value Range Interpretation Code Description Data Tashia rce(s) Supporting Document(s) ID Date Data Source [id number] 11/02/2019 12:00:00 AM EDT [facility] ([facility]) Name Value Range Interpretation Code Description Data Tashia rce(s) Supporting Document(s) ID Date Data Source [id number] 11/02/2019 12:00:00 AM EDT [facility] ([facility]) Name Value Range Interpretation Code Description Data Tashia rce(s) Supporting Document(s) ID Date Data Source [id number] 11/02/2019 12:00:00 AM EDT [facility] ([facility]) Name Value Range Interpretation Code Description Data Tashia rce(s) Supporting Document(s) ID Date Data Source [id number] 11/02/2019 12:00:00 AM EDT [facility] ([facility]) Name Value Range Interpretation Code Description Data Tashia rce(s) Supporting Document(s) ID Date Data Source [id number] 11/02/2019 12:00:00 AM EDT [facility] ([facility]) Name Value Range Interpretation Code Description Data Tashia rce(s) Supporting Document(s) ID Date Data Source [id number] 11/02/2019 12:00:00 AM EDT [facility] ([facility]) Name Value Range Interpretation Code Description Data Tashia rce(s) Supporting Document(s) ID Date Data Source [id number] 11/02/2019 12:00:00 AM EDT [facility]ILIA ([facility]) Name Value Range Interpretation Code Description Data Tashia rce(s) Supporting Document(s) ID Date Data Source [id number] 11/02/2019 12:00:00 AM EDT [facility]ILIA ([facility]) Name Value Range Interpretation Code Description Data Tashia rce(s) Supporting Document(s) ID Date Data Source [id number] 11/02/2019 12:00:00 AM EDT [facility]ILIA ([facility]) Name Value Range Interpretation Code Description Data Tashia rce(s) Supporting Document(s) ID Date Data Source [id number] 11/02/2019 12:00:00 AM EDT [facility] ([facility]) Name Value Range Interpretation Code Description Data Tashia rce(s) Supporting Document(s) ID Date Data Source [id number] 11/02/2019 12:00:00 AM EDT MARILIA ([facility]) Name Value Range Interpretation Code Description Data Tashia rce(s) Supporting Document(s) Procedure Social History Code Duration Value Status Description Data Source(s ) Smoking 11/14/2020 12:00:00 AM EDT Never Smoker completed Never S moker eCW1 ([facility]) Smoking 11/14/2020 12:00:00 AM EDT Never Smoker completed Never S moker eCW1 ([facility]) Smoking 11/14/2020 12:00:00 AM EDT Never Smoker completed Never S moker eCW1 ([facility]) Smoking 11/14/2020 12:00:00 AM EDT Never Smoker completed Never S moker eCW1 ([facility]) Smoking 11/14/2020 12:00:00 AM EDT Never Smoker completed Never S moker eCW1 ([facility]) Smoking 11/14/2020 12:00:00 AM EDT Never Smoker completed Never S moker eCW1 ([facility]) Smoking 11/14/2020 12:00:00 AM EDT Never Smoker completed Never S moker eCW1 ([facility]) Smoking 11/14/2020 12:00:00 AM EDT Never Smoker completed Never S moker eCW1 ([facility]) Smoking 11/14/2020 12:00:00 AM EDT Never Smoker completed Never S moker eCW1 ([facility]) Smoking 11/14/2020 12:00:00 AM EDT Never Smoker completed Never S moker eCW1 ([facility]) Smoking 11/14/2020 12:00:00 AM EDT Never Smoker completed Never S moker eCW1 ([facility]) Smoking 11/14/2020 12:00:00 AM EDT Never Smoker completed Never S moker eCW1 ([facility]) Smoking 10/21/2020 12:00:00 AM EDT Never Smoker completed Never S moker eCW1 ([facility]) Smoking 10/21/2020 12:00:00 AM EDT Never Smoker completed Never S moker eCW1 ([facility]) Smoking 10/21/2020 12:00:00 AM EDT Never Smoker completed Never S moker eCW1 ([facility]) Smoking 10/21/2020 12:00:00 AM EDT Never Smoker completed Never S moker eCW1 ([facility]) Smoking 10/21/2020 12:00:00 AM EDT Never Smoker completed Never S moker eCW1 ([facility]) Smoking 10/08/2020 12:00:00 AM EDT Patient has never smoked co mpleted Patient has never smoked [facility] ([facility] Smoking 09/22/2020 12:00:00 AM EDT Never Smoker completed Never S moker eCW1 ([facility]) Smoking 09/22/2020 12:00:00 AM EDT Never Smoker completed Never S moker eCW1 ([facility]) Smoking 08/11/2020 12:00:00 AM EDT Never Smoked Cigarettes com pleted Never Smoked Cigarettes [facility] ([facility] [place]) Smoking 07/04/2020 12:00:00 AM EDT Never Smoker completed Never S moker eCW1 ([facility]) Smoking 07/04/2020 12:00:00 AM EDT Never Smoker completed Never S moker eCW1 ([facility]) Smoking 07/04/2020 12:00:00 AM EDT Never Smoker completed Never S moker eCW1 ([facility]) Smoking 07/04/2020 12:00:00 AM EDT Never Smoker completed Never S moker eCW1 ([facility]) Smoking 07/04/2020 12:00:00 AM EDT Never Smoker completed Never S moker eCW1 ([facility]) Smoking 07/04/2020 12:00:00 AM EDT Never Smoker completed Never S moker eCW1 ([facility]) Smoking 07/04/2020 12:00:00 AM EDT Never Smoker completed Never S moker eCW1 ([facility]) Smoking 07/04/2020 12:00:00 AM EDT Never Smoker completed Never S moker eCW1 ([facility]) Smoking 07/04/2020 12:00:00 AM EDT Never Smoker completed Never S moker eCW1 ([facility]) Smoking 07/04/2020 12:00:00 AM EDT Never Smoker completed Never S moker eCW1 ([facility]) Smoking 07/04/2020 12:00:00 AM EDT Never Smoker completed Never S moker eCW1 ([facility]) Smoking 05/26/2020 12:00:00 AM EDT Never Smoker completed Never S moker eCW1 ([facility]) Smoking 05/26/2020 12:00:00 AM EDT Never Smoker completed Never S moker eCW1 ([facility]) Smoking 05/26/2020 12:00:00 AM EDT Never Smoker completed Never S moker eCW1 ([facility]) Smoking 05/26/2020 12:00:00 AM EDT Never Smoker completed Never S moker eCW1 ([facility]) Smoking 05/26/2020 12:00:00 AM EDT Never Smoker completed Never S moker eCW1 ([facility]) Smoking 05/26/2020 12:00:00 AM EDT Never Smoker completed Never S moker eCW1 ([facility]) Smoking 05/26/2020 12:00:00 AM EDT Never Smoker completed Never S moker eCW1 ([facility]) Smoking 05/26/2020 12:00:00 AM EDT Never Smoker completed Never S moker eCW1 ([facility]) Smoking 05/26/2020 12:00:00 AM EDT Never Smoker completed Never S moker eCW1 ([facility]) Smoking 05/26/2020 12:00:00 AM EDT Never Smoker completed Never S moker eCW1 ([facility]) Smoking 05/26/2020 12:00:00 AM EDT Never Smoker completed Never S moker eCW1 ([facility]) Smoking 05/12/2020 12:00:00 AM EST Never Smoker completed Never S moker eCW1 ([facility]) Smoking 05/12/2020 12:00:00 AM EST Never Smoker completed Never S moker eCW1 ([facility]) Smoking 05/12/2020 12:00:00 AM EST Never Smoker completed Never S moker eCW1 ([facility]) Vital Signs ID Date Data Source UNK Name Value Range Interpretation Code Description Data Source(s) Body temperature 96.9 [degF] 96.9 [degF] eCW1 ( [facility]) Respiratory rate 18 /min 18 /min eCW1 ([facility]) Heart rate 88 /min 88 /min eCW1 ([facility]) Body mass index (BMI) [Ratio] 35.80 kg/m2 35.80 kg/m2 eCW1 ([facility]) Body height 66 [in_i] 66 [in_i] eCW1 ([facility]) Body weight 100.61 kg 100.61 kg eCW1 ([facility]) Body weight 221.8 [lb_av] 221.8 [lb_av] eCW1 ([facility]) Diastolic blood pressure 78 mm[Hg] 78 mm[Hg] eCW1 ([facility]) Systolic blood pressure 122 mm[Hg] 122 mm[Hg] e CW1 ([facility]) Body temperature 96.9 [degF] 96.9 [degF] eCW1 ( [facility]) Respiratory rate 18 /min 18 /min eCW1 ([facility]) Heart rate 88 /min 88 /min eCW1 ([facility]) Body mass index (BMI) [Ratio] 35.80 kg/m2 35.80 kg/m2 eCW1 ([facility]) Body height 66 [in_i] 66 [in_i] eCW1 ([facility]) Body weight 100.61 kg 100.61 kg eCW1 ([facility]) Body weight 221.8 [lb_av] 221.8 [lb_av] eCW1 ([facility]) Diastolic blood pressure 78 mm[Hg] 78 mm[Hg] eCW1 ([facility]) Systolic blood pressure 122 mm[Hg] 122 mm[Hg] e CW1 ([facility]) Body temperature 97.4 [degF] 97.4 [degF] eCW1 ( [facility]) Respiratory rate 18 /min 18 /min eCW1 ([facility]) Heart rate 105 /min 105 /min eCW1 ([facility]) Body mass index (BMI) [Ratio] 36.44 kg/m2 36.44 kg/m2 W1 ([facility]) Body height 66 [in_i] 66 [in_i] eCW1 ([facility]) Body weight 102.42 kg 102.42 kg eCW1 ([facility]) Body weight 225.8 [lb_av] 225.8 [lb_av] eCW1 ([facility]) Diastolic blood pressure 62 mm[Hg] 62 mm[Hg] eCW1 ([facility]) Systolic blood pressure 128 mm[Hg] 128 mm[Hg] e CW1 ([facility]) Body surface area Derived from formula 2.11 m2 2.11 m2 [facility] ([facility] ) Body weight 103.421 kg 103.421 kg MEDENT ([facility] ) [place] body weight 130 [lb_av] 130 [lb_av] MEDEN T ([facility], ) Body mass index (BMI) [Ratio] 36.8 kg/m2 36.8 k g/m2 MEDENT ([facility]) Body weight 228.00 [lb_av] 228.00 [lb_av] MEDEN T ([facility], ) Body height 66 [in_i] 66 [in_i] MEDENT ([facility], ) 5'6" Diastolic blood pressure 64 mm[Hg] 64 mm[Hg] MEDENT ([facility], ) Systolic blood pressure 112 mm[Hg] 112 mm[Hg] M EDREMY ([facility], ) Body height 66 [in_i] 66 [in_i] MARILIA ([facility]) Diastolic blood pressure 74 mm[Hg] 74 mm[Hg] MARILIA ([facility]) Body weight 224 [lb_av] 224 [lb_av] MARILIA ([facility]) Systolic blood pressure 128 mm[Hg] 128 mm[Hg] A THENA ([facility]) Body mass index (BMI) [Ratio] 36.2 kg/m2 36.2 k g/m2 MARILIA ([facility]) Body weight 224 [lb_av] 224 [lb_av] MARILIA ([facility]) Systolic blood pressure 128 mm[Hg] 128 mm[Hg] A THENA ([facility]) Body mass index (BMI) [Ratio] 36.2 kg/m2 36.2 k g/m2 MARILIA ([facility]) Body height 66 [in_i] 66 [in_i] MARILIA ([facility]) Diastolic blood pressure 74 mm[Hg] 74 mm[Hg] MARILIA ([facility]) Body weight 224 [lb_av] 224 [lb_av] MARILIA ([facility]) Systolic blood pressure 128 mm[Hg] 128 mm[Hg] A THENA ([facility]) Body mass index (BMI) [Ratio] 36.2 kg/m2 36.2 k g/m2 MARILIA ([facility]) Body height 66 [in_i] 66 [in_i] MARILIA ([facility]) Diastolic blood pressure 74 mm[Hg] 74 mm[Hg] MARILIA ([facility]) Body surface area Derived from formula 2.10 m2 2.10 m2 [facility] ([facility]) Body weight 101.606 kg 101.606 kg [facility] ([facility]) [place] body weight 130 [lb_av] 130 [lb_av] MEDEN T ([facility]) Body mass index (BMI) [Ratio] 36.2 kg/m2 36.2 k g/m2 [facility] ([facility]) Body weight 224.00 [lb_av] 224.00 [lb_av] [facility] Body height 66 [in_i] 66 [in_i] [facility] ([facility]) 5'6" Oxygen saturation in Arterial blood by Pulse oximetry 96 % 96 % [facility] ([facility]) Heart rate 95 /min 95 /min [facility] ([facility]) Diastolic blood pressure 84 mm[Hg] 84 mm[Hg] [facility] Systolic blood pressure 132 mm[Hg] 132 mm[Hg] [facility] Diastolic blood pressure 72 mm[Hg] 72 mm[Hg] eCW1 ([facility]) Systolic blood pressure 116 mm[Hg] 116 mm[Hg] e CW1 ([facility]) Body temperature 97.7 [degF] 97.7 [degF] eCW1 ( [facility]) Respiratory rate 18 /min 18 /min eCW1 ([facility]) Heart rate 91 /min 91 /min eCW1 ([facility]) Body mass index (BMI) [Ratio] 36.96 kg/m2 36.96 kg/m2 W1 ([facility]) Body height 66 [in_i] 66 [in_i] eCW1 ([facility]) Body weight 229 [lb_av] 229 [lb_av] eCW1 ([facility]) Systolic blood pressure 115 mm[Hg] 115 mm[Hg] A THENA ([facility]) Diastolic blood pressure 77 mm[Hg] 77 mm[Hg] MARILIA ([facility]) Systolic blood pressure 115 mm[Hg] 115 mm[Hg] A THENA ([facility]) Diastolic blood pressure 77 mm[Hg] 77 mm[Hg] MARILIA ([facility]) Systolic blood pressure 115 mm[Hg] 115 mm[Hg] A THENA ([facility]) Diastolic blood pressure 77 mm[Hg] 77 mm[Hg] MARILIA ([facility]) Systolic blood pressure 115 mm[Hg] 115 mm[Hg] A THENA ([facility]) Diastolic blood pressure 77 mm[Hg] 77 mm[Hg] MARILIA ([facility]) Systolic blood pressure 115 mm[Hg] 115 mm[Hg] A THENA ([facility]) Diastolic blood pressure 77 mm[Hg] 77 mm[Hg] MARILIA ([facility]) Body mass index (BMI) [Ratio] 35.2 kg/m2 35.2 k g/m2 MEDENT ([facility]) Body weight 218.00 [lb_av] 218.00 [lb_av] MEDEN T ([facility]) Body height 66 [in_i] 66 [in_i] MEDENT ([facility]) 5'6" Diastolic blood pressure 70 mm[Hg] 70 mm[Hg] eCW1 ([facility]) Systolic blood pressure 122 mm[Hg] 122 mm[Hg] e CW1 ([facility]) Body temperature 97.1 [degF] 97.1 [degF] eCW1 ( [facility]) Respiratory rate 20 /min 20 /min eCW1 ([facility]) Heart rate 94 /min 94 /min eCW1 ([facility]) Body mass index (BMI) [Ratio] 39.02 kg/m2 39.02 kg/m2 W1 ([facility]) Body height 66 [in_i] 66 [in_i] eCW1 ([facility]) Body weight 241.8 [lb_av] 241.8 [lb_av] eCW1 ([facility]) Diastolic blood pressure 68 mm[Hg] 68 mm[Hg] eCW1 ([facility]) Systolic blood pressure 110 mm[Hg] 110 mm[Hg] e CW1 ([facility]) Body temperature 98.3 [degF] 98.3 [degF] eCW1 ( [facility]) Respiratory rate 18 /min 18 /min eCW1 ([facility]) Heart rate 96 /min 96 /min eCW1 ([facility]) Body mass index (BMI) [Ratio] 36.86 kg/m2 36.86 kg/m2 eCW1 ([facility]) Body height 66 [in_i] 66 [in_i] eCW1 ([facility]) Body weight 228.4 [lb_av] 228.4 [lb_av] eCW1 ([facility]) Diastolic blood pressure 78 mm[Hg] 78 mm[Hg] eCW1 ([facility]) Systolic blood pressure 102 mm[Hg] 102 mm[Hg] e CW1 ([facility]) Body temperature 97.8 [degF] 97.8 [degF] eCW1 ( [facility]) Respiratory rate 18 /min 18 /min eCW1 ([facility]) Heart rate 95 /min 95 /min eCW1 ([facility]) Body mass index (BMI) [Ratio] 36.96 kg/m2 36.96 kg/m2 eCW1 ([facility]) Body height 66 [in_i] 66 [in_i] eCW1 ([facility]) Body weight 229 [lb_av] 229 [lb_av] eCW1 ([facility]) Systolic blood pressure 134 mm[Hg] 134 mm[Hg] A THENA ([facility]) Diastolic blood pressure 85 mm[Hg] 85 mm[Hg] MARILIA ([facility]) Systolic blood pressure 134 mm[Hg] 134 mm[Hg] A THENA ([facility]) Diastolic blood pressure 85 mm[Hg] 85 mm[Hg] MARILIA ([facility]) Systolic blood pressure 134 mm[Hg] 134 mm[Hg] A THENA ([facility]) Diastolic blood pressure 85 mm[Hg] 85 mm[Hg] MARILIA ([facility]) Systolic blood pressure 134 mm[Hg] 134 mm[Hg] A THENA ([facility]) Diastolic blood pressure 85 mm[Hg] 85 mm[Hg] MARILIA ([facility]) Systolic blood pressure 134 mm[Hg] 134 mm[Hg] A THENA ([facility]) Diastolic blood pressure 85 mm[Hg] 85 mm[Hg] MARILIA ([facility]) Systolic blood pressure 134 mm[Hg] 134 mm[Hg] A THENA ([facility]) Diastolic blood pressure 85 mm[Hg] 85 mm[Hg] MARILIA ([facility]) Body surface area Derived from formula 2.12 m2 2.12 m2 [facility] ([facility]) Body weight 103.874 kg 103.874 kg [facility] ([facility]) [place] body weight 130 [lb_av] 130 [lb_av] [facility] Body mass index (BMI) [Ratio] 37.0 kg/m2 37.0 k g/m2 [facility] ([facility]) Body weight 229.00 [lb_av] 229.00 [lb_av] [facility] Body height 66 [in_i] 66 [in_i] [facility] ([facility]) 5'6" Oxygen saturation in Arterial blood by Pulse oximetry 98 % 98 % [facility] ([facility]) Room Air Heart rate 88 /min 88 /min [facility] ([facility]) Diastolic blood pressure 76 mm[Hg] 76 mm[Hg] [facility] ([facility]) Systolic blood pressure 126 mm[Hg] 126 mm[Hg] [facility] Body surface area Derived from formula 2.12 m2 2.12 m2 [facility] ([facility]) Body weight 103.874 kg 103.874 kg [facility] ([facility]) [place] body weight 130 [lb_av] 130 [lb_av] MEDEN T ([facility]) Body mass index (BMI) [Ratio] 37.0 kg/m2 37.0 k g/m2 [facility] ([facility]) Body weight 229.00 [lb_av] 229.00 [lb_av] [facility] Body height 66 [in_i] 66 [in_i] [facility] ([facility]) 5'6" Oxygen saturation in Arterial blood by Pulse oximetry 98 % 98 % [facility] ([facility]) Room Air [place] body weight 130 [lb_av] 130 [lb_av] [facility] Body height 66 [in_i] 66 [in_i] [facility] ([facility]) 5'6" Patient Treatment Plan of Care Planned Activity Planned Date Details Description Data Source (s) NITROFURANTOIN, MACROCRYSTALS 25 MG / Ni trofurantoin, Monohydrate 75 MG Oral Capsule [Macrobid] 11/17/2020 12:00:00 AM EDT eC W1 ([facility]) NITROFURANTOIN, MACROCRYSTALS 25 MG / Ni trofurantoin, Monohydrate 75 MG Oral Capsule [Macrobid] 11/17/2020 12:00:00 AM EDT eC W1 ([facility]) NITROFURANTOIN, MACROCRYSTALS 25 MG / Ni trofurantoin, Monohydrate 75 MG Oral Capsule [Macrobid] 11/17/2020 12:00:00 AM EDT eC W1 ([facility]) NITROFURANTOIN, MACROCRYSTALS 25 MG / Ni trofurantoin, Monohydrate 75 MG Oral Capsule [Macrobid] 11/17/2020 12:00:00 AM EDT eC W1 ([facility]) NITROFURANTOIN, MACROCRYSTALS 25 MG / Ni trofurantoin, Monohydrate 75 MG Oral Capsule [Macrobid] 11/17/2020 12:00:00 AM EDT eC W1 ([facility]) NITROFURANTOIN, MACROCRYSTALS 25 MG / Ni trofurantoin, Monohydrate 75 MG Oral Capsule [Macrobid] 11/17/2020 12:00:00 AM EDT eC W1 ([facility]) NITROFURANTOIN, MACROCRYSTALS 25 MG / Ni trofurantoin, Monohydrate 75 MG Oral Capsule [Macrobid] 11/17/2020 12:00:00 AM EDT eC W1 ([facility]) NITROFURANTOIN, MACROCRYSTALS 25 MG / Ni trofurantoin, Monohydrate 75 MG Oral Capsule [Macrobid] 11/17/2020 12:00:00 AM EDT eC W1 ([facility]) NITROFURANTOIN, MACROCRYSTALS 25 MG / Ni trofurantoin, Monohydrate 75 MG Oral Capsule [Macrobid] 11/17/2020 12:00:00 AM EDT eC W1 ([facility]) NITROFURANTOIN, MACROCRYSTALS 25 MG / Ni trofurantoin, Monohydrate 75 MG Oral Capsule [Macrobid] 11/17/2020 12:00:00 AM EDT eC W1 ([facility]) NITROFURANTOIN, MACROCRYSTALS 25 MG / Ni trofurantoin, Monohydrate 75 MG Oral Capsule [Macrobid] 11/17/2020 12:00:00 AM EDT eC W1 ([facility]) Mupirocin 0.02 MG/MG Topical Ointment 11/14/2020 12:00:00 AM EDT eCW1 ([facility]) ferric carboxymaltose 50 MG/ML Injectable Solution [In jectafer] 11/14/2020 12:00:00 AM EDT eCW1 ([facility]) Mupirocin 0.02 MG/MG Topical Ointment 11/14/2020 12:00:00 AM EDT eCW1 ([facility]) ferric carboxymaltose 50 MG/ML Injectable Solution [In jectafer] 11/14/2020 12:00:00 AM EDT eCW1 ([facility]) ferric carboxymaltose 50 MG/ML Injectable Solution [In jectafer] 11/14/2020 12:00:00 AM EDT eCW1 ([facility]) Mupirocin 0.02 MG/MG Topical Ointment 11/14/2020 12:00:00 AM EDT eCW1 ([facility]) Mupirocin 0.02 MG/MG Topical Ointment 11/14/2020 12:00:00 AM EDT eCW1 ([facility]) ferric carboxymaltose 50 MG/ML Injectable Solution [In jectafer] 11/14/2020 12:00:00 AM EDT eCW1 ([facility]) Mupirocin 0.02 MG/MG Topical Ointment 11/14/2020 12:00:00 AM EDT eCW1 ([facility]) ferric carboxymaltose 50 MG/ML Injectable Solution [In jectafer] 11/14/2020 12:00:00 AM EDT eCW1 ([facility]) Mupirocin 0.02 MG/MG Topical Ointment 11/14/2020 12:00:00 AM EDT eCW1 ([facility]) ferric carboxymaltose 50 MG/ML Injectable Solution [In jectafer] 11/14/2020 12:00:00 AM EDT eCW1 ([facility]) Mupirocin 0.02 MG/MG Topical Ointment 11/14/2020 12:00:00 AM EDT eCW1 ([facility]) ferric carboxymaltose 50 MG/ML Injectable Solution [In jectafer] 11/14/2020 12:00:00 AM EDT eCW1 ([facility]) Mupirocin 0.02 MG/MG Topical Ointment 11/14/2020 12:00:00 AM EDT eCW1 ([facility]) ferric carboxymaltose 50 MG/ML Injectable Solution [In jectafer] 11/14/2020 12:00:00 AM EDT eCW1 ([facility]) Mupirocin 0.02 MG/MG Topical Ointment 11/14/2020 12:00:00 AM EDT eCW1 ([facility]) ferric carboxymaltose 50 MG/ML Injectable Solution [In jectafer] 11/14/2020 12:00:00 AM EDT eCW1 ([facility]) ferric carboxymaltose 50 MG/ML Injectable Solution [In jectafer] 11/14/2020 12:00:00 AM EDT eCW1 ([facility]) Mupirocin 0.02 MG/MG Topical Ointment 11/14/2020 12:00:00 AM EDT eCW1 ([facility]) Mupirocin 0.02 MG/MG Topical Ointment 11/14/2020 12:00:00 AM EDT eCW1 ([facility]) Mupirocin 0.02 MG/MG Topical Ointment 11/14/2020 12:00:00 AM EDT eCW1 ([facility]) ferric carboxymaltose 50 MG/ML Injectable Solution [In jectafer] 11/14/2020 12:00:00 AM EDT eCW1 ([facility]) ferric carboxymaltose 50 MG/ML Injectable Solution [In jectafer] 11/14/2020 12:00:00 AM EDT eCW1 ([facility]) Lancets - 11/03/2020 12:00:00 AM EDT e CW1 ([facility]) Blood Glucose Test - 11/03/2020 12:00:00 AM EDT eCW1 ([facility]) Glucometer 11/03/2020 12:00:00 AM EDT e CW1 ([facility]) Blood Glucose Test - 11/03/2020 12:00:00 AM EDT eCW1 ([facility]) Glucometer 11/03/2020 12:00:00 AM EDT e CW1 ([facility]) Lancets - 11/03/2020 12:00:00 AM EDT e CW1 ([facility]) Lancets - 11/03/2020 12:00:00 AM EDT e CW1 ([facility]) Glucometer 11/03/2020 12:00:00 AM EDT e CW1 ([facility]) Blood Glucose Test - 11/03/2020 12:00:00 AM EDT eCW1 ([facility]) 60 ACTUAT Fluticasone propionate 0.25 MG /ACTUAT / salmeterol 0.05 MG/ACTUAT Dry Powder Inhaler [Advair] 07/07/2020 12:00:00 AM EDT eCW1 ([facility]) 60 ACTUAT Fluticasone propionate 0.25 MG /ACTUAT / salmeterol 0.05 MG/ACTUAT Dry Powder Inhaler [Advair] 07/07/2020 12:00:00 AM EDT eCW1 ([facility]) 60 ACTUAT Fluticasone propionate 0.25 MG /ACTUAT / salmeterol 0.05 MG/ACTUAT Dry Powder Inhaler [Advair] 07/07/2020 12:00:00 AM EDT eCW1 ([facility]) 60 ACTUAT Fluticasone propionate 0.25 MG /ACTUAT / salmeterol 0.05 MG/ACTUAT Dry Powder Inhaler [Advair] 07/07/2020 12:00:00 AM EDT eCW1 ([facility]) 60 ACTUAT Fluticasone propionate 0.25 MG /ACTUAT / salmeterol 0.05 MG/ACTUAT Dry Powder Inhaler [Advair] 07/07/2020 12:00:00 AM EDT eCW1 ([facility]) 60 ACTUAT Fluticasone propionate 0.25 MG /ACTUAT / salmeterol 0.05 MG/ACTUAT Dry Powder Inhaler [Advair] 07/07/2020 12:00:00 AM EDT eCW1 ([facility]) 60 ACTUAT Fluticasone propionate 0.25 MG /ACTUAT / salmeterol 0.05 MG/ACTUAT Dry Powder Inhaler [Advair] 07/07/2020 12:00:00 AM EDT eCW1 ([facility]) 60 ACTUAT Fluticasone propionate 0.25 MG /ACTUAT / salmeterol 0.05 MG/ACTUAT Dry Powder Inhaler [Advair] 07/07/2020 12:00:00 AM EDT eCW1 ([facility]) 60 ACTUAT Fluticasone propionate 0.25 MG /ACTUAT / salmeterol 0.05 MG/ACTUAT Dry Powder Inhaler [Advair] 07/07/2020 12:00:00 AM EDT eCW1 ([facility]) 60 ACTUAT Fluticasone propionate 0.25 MG /ACTUAT / salmeterol 0.05 MG/ACTUAT Dry Powder Inhaler [Advair] 07/07/2020 12:00:00 AM EDT eCW1 ([facility]) 60 ACTUAT Fluticasone propionate 0.25 MG /ACTUAT / salmeterol 0.05 MG/ACTUAT Dry Powder Inhaler [Advair] 07/07/2020 12:00:00 AM EDT eCW1 ([facility]) 60 ACTUAT Fluticasone propionate 0.25 MG /ACTUAT / salmeterol 0.05 MG/ACTUAT Dry Powder Inhaler [Advair] 07/07/2020 12:00:00 AM EDT eCW1 ([facility]) POLYETHYLENE GLYCOL 3350 142 MG/ML Oral Solution [Dawn lax] 05/26/2020 12:00:00 AM EDT eCW1 ([facility]) POLYETHYLENE GLYCOL 3350 142 MG/ML Oral Solution [Dawn lax] 05/26/2020 12:00:00 AM EDT eCW1 ([facility]) POLYETHYLENE GLYCOL 3350 142 MG/ML Oral Solution [Dawn lax] 05/26/2020 12:00:00 AM EDT eCW1 ([facility]) POLYETHYLENE GLYCOL 3350 142 MG/ML Oral Solution [Dawn lax] 05/26/2020 12:00:00 AM EDT eCW1 ([facility]) POLYETHYLENE GLYCOL 3350 142 MG/ML Oral Solution [Dawn lax] 05/26/2020 12:00:00 AM EDT eCW1 ([facility]) POLYETHYLENE GLYCOL 3350 142 MG/ML Oral Solution [Dawn lax] 05/26/2020 12:00:00 AM EDT eCW1 ([facility]) POLYETHYLENE GLYCOL 3350 142 MG/ML Oral Solution [Dawn lax] 05/26/2020 12:00:00 AM EDT eCW1 ([facility]) POLYETHYLENE GLYCOL 3350 142 MG/ML Oral Solution [Dawn lax] 05/26/2020 12:00:00 AM EDT eCW1 ([facility]) POLYETHYLENE GLYCOL 3350 142 MG/ML Oral Solution [Dawn lax] 05/26/2020 12:00:00 AM EDT eCW1 ([facility]) POLYETHYLENE GLYCOL 3350 142 MG/ML Oral Solution [Dawn lax] 05/26/2020 12:00:00 AM EDT eCW1 ([facility]) Cyclobenzaprine hydrochloride 10 MG Oral Tablet 02/07/2020 12:00:00 AM EST eCW1 ([facility]) Cyclobenzaprine hydrochloride 10 MG Oral Tablet 02/07/2020 12:00:00 AM EST eCW1 ([facility]) Cyclobenzaprine hydrochloride 10 MG Oral Tablet 02/07/2020 12:00:00 AM EST eCW1 ([facility]) Cyclobenzaprine hydrochloride 5 MG Oral Tablet 02/07/2020 12:00:00 AM EST eCW1 ([facility]) Amitriptyline Hydrochloride 25 MG Oral Tablet 12/06/2019 12:00:00 A M EDT eCW1 ([facility]) Amitriptyline Hydrochloride 25 MG Oral Tablet 12/06/2019 12:00:00 A M EDT eCW1 ([facility]) Amitriptyline Hydrochloride 25 MG Oral Tablet 12/06/2019 12:00:00 A M EDT eCW1 ([facility]) Amitriptyline Hydrochloride 25 MG Oral Tablet 12/06/2019 12:00:00 A M EDT eCW1 ([facility]) Amitriptyline Hydrochloride 25 MG Oral Tablet 12/06/2019 12:00:00 A M EDT eCW1 ([facility]) Amitriptyline Hydrochloride 25 MG Oral Tablet 12/06/2019 12:00:00 A M EDT eCW1 ([facility]) cefdinir 300 MG Oral Capsule MARILIA ([facility]) Ciprofloxacin 250 MG Oral Tablet MARILIA ([facility]) Doxycycline Monohydrate 100 MG Oral Capsule MARILIA ([facility]) 0.3 ML Enoxaparin sodium 100 MG/ML Prefilled Syringe MARILIA ([facility]) Alprazolam 1 MG Oral Tablet MARILIA ([facility]) Amoxicillin 500 MG / Clavulanate 125 MG Oral Tablet MARILIA ([facility]) Estradiol 0.1 MG/ML Vaginal Cream MARILIA ([facility]) Oxycodone Hydrochloride 5 MG Oral Tablet MARILIA ([facility]) Acetaminophen 325 MG / Oxycodone Hydrochloride 5 MG Oral Tablet MARILIA ([facility]) Prednisone 20 MG Oral Tablet MARILIA ([facility]) tramadol hydrochloride 50 MG Oral Tablet MARILIA ([facility]) glimepiride 1 MG Oral Tablet MARILIA ([facility]) glimepiride 2 MG Oral Tablet MARILIA ([facility]) Methylprednisolone 2 MG Oral Tablet [Medrol] MARILIA ([facility]) Methylprednisolone 4 MG Oral Tablet MARILIA ([facility]) glimepiride 2 MG Oral Tablet MARILIA ([facility]) glimepiride 1 MG Oral Tablet MARILIA ([facility]) 0.3 ML Enoxaparin sodium 100 MG/ML Prefilled Syringe MARILIA ([facility]) Ciprofloxacin 250 MG Oral Tablet MARILIA ([facility]) Estradiol 0.1 MG/ML Vaginal Cream MARILIA ([facility]) Doxycycline Monohydrate 100 MG Oral Capsule MARILIA ([facility]) Methylprednisolone 2 MG Oral Tablet [Medrol] MARILIA ([facility]) Methylprednisolone 4 MG Oral Tablet MARILIA ([facility]) Oxycodone Hydrochloride 5 MG Oral Tablet MARILIA ([facility]) tramadol hydrochloride 50 MG Oral Tablet MARILIA ([facility]) Amoxicillin 500 MG / Clavulanate 125 MG Oral Tablet MARILIA ([facility]) Acetaminophen 325 MG / Oxycodone Hydrochloride 5 MG Oral Tablet MARILIA ([facility]) Prednisone 20 MG Oral Tablet MARILIA ([facility]) cefdinir 300 MG Oral Capsule MARILIA ([facility]) Alprazolam 1 MG Oral Tablet MARILIA ([facility]) Amoxicillin 500 MG / Clavulanate 125 MG Oral Tablet MARILIA ([facility]) Ciprofloxacin 250 MG Oral Tablet MARILIA ([facility]) Doxycycline Monohydrate 100 MG Oral Capsule MARILIA ([facility]) Acetaminophen 325 MG / Oxycodone Hydrochloride 5 MG Oral Tablet MARILIA ([facility]) Prednisone 20 MG Oral Tablet MARILIA ([facility]) tramadol hydrochloride 50 MG Oral Tablet MARILIA ([facility]) Methylprednisolone 2 MG Oral Tablet [Medrol] MARILIA ([facility]) Methylprednisolone 4 MG Oral Tablet MARILIA ([facility]) Oxycodone Hydrochloride 5 MG Oral Tablet MARILIA ([facility]) 0.3 ML Enoxaparin sodium 100 MG/ML Prefilled Syringe MARILIA ([facility]) Estradiol 0.1 MG/ML Vaginal Cream MARILIA ([facility]) Alprazolam 1 MG Oral Tablet [facility] ([facility] [facility] Amoxicillin 500 MG / Clavulanate 125 MG Oral Tablet [facility] ([facility]) tramadol hydrochloride 50 MG Oral Tablet [facility] ([facility]) cefdinir 300 MG Oral Capsule [facility] ([facility]) Ciprofloxacin 250 MG Oral Tablet [facility] ([facility]) Doxycycline Monohydrate 100 MG Oral Capsule [facility] ([facility]) 0.3 ML Enoxaparin sodium 100 MG/ML Prefilled Syringe [facility] ([facility]) Estradiol 0.1 MG/ML Vaginal Cream [facility] ([facility]) Methylprednisolone 2 MG Oral Tablet [Medrol] [facility] ([facility]) Methylprednisolone 4 MG Oral Tablet [facility] ([facility]) Oxycodone Hydrochloride 5 MG Oral Tablet [facility] ([facility]) Acetaminophen 325 MG / Oxycodone Hydrochloride 5 MG Oral Tablet [facility] ([facility]) Prednisone 20 MG Oral Tablet [facility] ([facility]) Alprazolam 1 MG Oral Tablet [facility] ([facility]) Oxycodone Hydrochloride 5 MG Oral Tablet [facility] ([facility]) Amoxicillin 500 MG / Clavulanate 125 MG Oral Tablet [facility] ([facility]) cefdinir 300 MG Oral Capsule [facility] ([facility]) Acetaminophen 325 MG / Oxycodone Hydrochloride 5 MG Oral Tablet [facility] ([facility]) Ciprofloxacin 250 MG Oral Tablet [facility] ([facility]) Prednisone 20 MG Oral Tablet [facility] ([facility]) tramadol hydrochloride 50 MG Oral Tablet [facility] ([facility]) Alprazolam 1 MG Oral Tablet [facility] ([facility]) Amoxicillin 500 MG / Clavulanate 125 MG Oral Tablet [facility] ([facility]) cefdinir 300 MG Oral Capsule [facility] ([facility]) Ciprofloxacin 250 MG Oral Tablet [facility] ([facility]) Doxycycline Monohydrate 100 MG Oral Capsule [facility] ([facility]) 0.3 ML Enoxaparin sodium 100 MG/ML Prefilled Syringe [facility] ([facility]) Doxycycline Monohydrate 100 MG Oral Capsule [facility] ([facility]) 0.3 ML Enoxaparin sodium 100 MG/ML Prefilled Syringe [facility] ([facility]) Methylprednisolone 2 MG Oral Tablet [Medrol] [facility] ([facility]) Estradiol 0.1 MG/ML Vaginal Cream [facility] ([facility]) tramadol hydrochloride 50 MG Oral Tablet [facility] ([facility]) Methylprednisolone 4 MG Oral Tablet [facility] ([facility]) Oxycodone Hydrochloride 5 MG Oral Tablet [facility] ([facility]) Acetaminophen 325 MG / Oxycodone Hydrochloride 5 MG Oral Tablet [facility] ([facility]) Prednisone 20 MG Oral Tablet [facility] ([facility]) Estradiol 0.1 MG/ML Vaginal Cream [facility] ([facility]) Methylprednisolone 2 MG Oral Tablet [Medrol] [facility] ([facility]) Methylprednisolone 4 MG Oral Tablet [facility] ([facility]) glimepiride 1 MG Oral Tablet [facility] ([facility]) Amoxicillin 500 MG / Clavulanate 125 MG Oral Tablet [facility] ([facility]) Ciprofloxacin 250 MG Oral Tablet [facility] ([facility]) Cyclobenzaprine hydrochloride 5 MG Oral Tablet [facility] ([facility]) Doxycycline Monohydrate 100 MG Oral Capsule [facility] ([facility]) 0.3 ML Enoxaparin sodium 100 MG/ML Prefilled Syringe [facility] ([facility]) Estradiol 0.1 MG/ML Vaginal Cream [facility] ([facility]) Methylprednisolone 2 MG Oral Tablet [Medrol] [facility] ([facility]) Methylprednisolone 4 MG Oral Tablet [facility] ([facility]) tramadol hydrochloride 50 MG Oral Tablet [facility] ([facility]) Oxycodone Hydrochloride 5 MG Oral Tablet [facility] ([facility]) Acetaminophen 325 MG / Oxycodone Hydrochloride 5 MG Oral Tablet [facility] ([facility]) Prednisone 20 MG Oral Tablet [facility] ([facility]) Oxycodone Hydrochloride 5 MG Oral Tablet [facility] ([facility]) Doxycycline Monohydrate 100 MG Oral Capsule [facility] ([facility]) 0.3 ML Enoxaparin sodium 100 MG/ML Prefilled Syringe [facility] ([facility]) Estradiol 0.1 MG/ML Vaginal Cream [facility] ([facility]) glimepiride 1 MG Oral Tablet [facility] ([facility]) Methylprednisolone 2 MG Oral Tablet [Medrol] [facility] ([facility]) Methylprednisolone 4 MG Oral Tablet [facility] ([facility]) Amoxicillin 500 MG / Clavulanate 125 MG Oral Tablet [facility] ([facility]) Ciprofloxacin 250 MG Oral Tablet [facility] ([facility]) Cyclobenzaprine hydrochloride 5 MG Oral Tablet [facility] ([facility]) Acetaminophen 325 MG / Oxycodone Hydrochloride 5 MG Oral Tablet [facility] ([facility]) Prednisone 20 MG Oral Tablet [facility] ([facility]) tramadol hydrochloride 50 MG Oral Tablet [facility] ([facility]) Doxycycline Monohydrate 100 MG Oral Capsule [facility] ([facility]) Amoxicillin 500 MG / Clavulanate 125 MG Oral Tablet [facility] ([facility]) Estradiol 0.1 MG/ML Vaginal Cream [facility] ([facility]) Ciprofloxacin 250 MG Oral Tablet [facility] ([facility]) 0.3 ML Enoxaparin sodium 100 MG/ML Prefilled Syringe [facility] ([facility]) tramadol hydrochloride 50 MG Oral Tablet [facility] ([facility]) Oxycodone Hydrochloride 5 MG Oral Tablet [facility] ([facility]) Acetaminophen 325 MG / Oxycodone Hydrochloride 5 MG Oral Tablet [facility] ([facility]) Prednisone 20 MG Oral Tablet [facility] ([facility]) glimepiride 1 MG Oral Tablet [facility] ([facility]) glimepiride 2 MG Oral Tablet [facility] ([facility]) Methylprednisolone 2 MG Oral Tablet [Medrol] [facility] ([facility]) Methylprednisolone 4 MG Oral Tablet [facility] ([facility]) Estradiol 0.1 MG/ML Vaginal Cream [facility] ([facility]) Amoxicillin 500 MG / Clavulanate 125 MG Oral Tablet [facility] ([facility]) Ciprofloxacin 250 MG Oral Tablet [facility] ([facility]) Doxycycline Monohydrate 100 MG Oral Capsule [facility] ([facility]) 0.3 ML Enoxaparin sodium 100 MG/ML Prefilled Syringe [facility] ([facility]) glimepiride 1 MG Oral Tablet [facility] ([facility]) glimepiride 2 MG Oral Tablet [facility] ([facility]) Methylprednisolone 2 MG Oral Tablet [Medrol] [facility] ([facility]) Methylprednisolone 4 MG Oral Tablet [facility] ([facility]) Oxycodone Hydrochloride 5 MG Oral Tablet [facility] ([facility]) Acetaminophen 325 MG / Oxycodone Hydrochloride 5 MG Oral Tablet [facility] ([facility]) Prednisone 20 MG Oral Tablet [facility] ([facility]) tramadol hydrochloride 50 MG Oral Tablet [facility] ([facility])
== END 2020-12-25 19:19 | disposition left against medical advice (07) ==
LOC: M ED 16:38
DX: Z53.29 Procedure and treatment not carried out because of patient's decision for other reasons (principal)

== ENCOUNTER → 2020-12-27 | Outpatient (CLI) | payer OTHER ==
[~2020-12-27] MED LIST changes: +METR-135 PO
== END ==
LOC: M LABSMTC 09:48
PROVIDERS: ATTEND Anesthesiology
DX: Z01.812 Encounter for preprocedural laboratory examination (principal); Z20.822 Contact with and (suspected) exposure to COVID-19

== ENCOUNTER 2020-12-29 15:11 | Emergency (ER) | payer OTHER ==
[~2020-12-29 15:11] MED LIST changes: -METR-135 PO
--- OUTSIDE RECORDS SUMMARY | 2020-12-29 15:19 | CCD ---
Author Author [facility] Organization [facility] Address Unknown Phone Unavailable Care Team Providers Care Billing Adjudicator Name Role Phone Kimani Ann Unavailable PROBLEMS Type Condition ICD9-CM Code [id number] Code Onset Dates Condition S tatus W/U Status Risk SNOMED Code Notes Problem Depression F32.9 Active confirmed 45129584 Problem Insomnia G47.00 Active confirmed 236189419 Problem Breast cancer screening Z12.39 Active confirmed 047596874 Problem Gastroesophageal reflux disease, esophagitis pre sence not specified K21.9 Active confirmed 759720305 Problem Folic acid deficiency E53.8 Active confirmed 438679311 Problem NICKI (obstructive sleep apnea) G47.33 Active confirm ed 12857013 Problem Osteoporosis M81.0 Active confirmed 4711999 6 Problem Tibial plateau fracture, left S82.142A Active confi rmed 57716743 Problem Vitamin D deficiency E55.9 Active confirmed 55205879 Problem Oral candidiasis B37.0 Active confirmed 797 68454 Problem Hypothyroid E03.9 Active confirmed 44761750 Problem Fibromyalgia M79.7 Active confirmed 7618881 05 Problem Hypertension I10 Active confirmed 8663005 3 Problem Other disturbances of skin sensation R20.8 Act андрей confirmed 62177448 Problem Hyperalgesia R20.8 Active confirmed 8130992 8 Problem Hypothyroidism, unspecified E03.9 Active confirmed 83145103 Problem Ataxia R27.0 Active confirmed 48352409 Problem Mixed hyperlipidemia E78.2 Active confirmed 406309431 Problem Asthma, severe persistent J45.50 Active confirmed 691118813 Problem Essential tremor G25.0 Active confirmed 609 024019 Problem Hyperlipidemia E78.5 Active confirmed 04168 004 Problem Diabetes mellitus without me ntion of complication, type II or unspecified type, not stated as uncontrolled 250.00 Activ e confirmed 432323621 Problem Diastolic CHF I50.30 Active confirmed 817393 008 Problem Chronic pain syndrome G89.4 Active confirmed 052739900 Problem Recurrent urinary tract infection N39.0 Active confirmed 685638206 Problem Constipation, chronic K59.09 Active confirmed 411281021 Problem Impingement syndrome of both shoulders M75.41 A ctive confirmed 483835190 Problem 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 Active confirmed 4 11499105 Problem Falls frequently R29.6 Active confirmed 279 337962 Problem Primary osteoarthritis of right knee M17.11 Act андрей confirmed 113695141040175 Problem Anemia, iron deficiency D50.9 Active confirmed 16561877 Problem Wrist fracture, left, sequela S62.102S Active confi rmed 990475903 Problem Recurrent epistaxis R04.0 Active confirmed 810609973 Problem Colon polyp K63.5 Active confirmed 78441775 Problem DM2 (diabetes mellitus, type 2) E11.9 Active confi rmed 93299146 Problem Pulmonary embolism I26.99 Active confirmed 5 1897299 Problem DJD (degenerative joint disease), cervical M50.30 Active confirmed 10868362 Problem Primary osteoarthritis of both knees M17.0 Act андрей confirmed 184902200 Problem Menopausal and female climacteric states N95.1 Active confirmed 603007925 Problem DJD (degenerative joint disease), lumbar M47.816 Active confirmed 096805490 Problem Anxiety F41.9 Active confirmed 79679511 Problem Constipation, unspecified constipation type K59.00 Active confirmed 22981221 ALLERGIES Allergen (clinical drug ingredient) Drug/Non Drug Allergy do cumented on EMR Reaction Allergy Type Onset Date Status gatifloxacin Gatifloxacin([facility] Code:[address]-64) pruritis Drug All ergy Active Zocor 10 Anaphylaxis Drug Allergy Active puneet sprinkles head ache Non Drug Allergy Active Vioxx (for allergy use only) bruising Drug Allergy Active ENCOUNTERS from 1955 to 2020-12-26 Encounter Location Date Provider Diagnosis [facility] [address] [facility] [phone] [place] [address] Dec, Kimani Ann IMMUNIZATIONS Vaccine Route Administration [...] School Language: Question Answer Notes Languages spoken: Bengali Orthodoxy: Question Answer Notes Orthodoxy 21 Sikh Sexual Hx: Question Answer Notes Had sex [...] prn for 30 Days Active Nystatin Powder 397380 UNIT 1 application to affected area Externally [...] directed DX: E11.9 Daily for 90 day(s) 30 Au g, 2020 Active Lancets - as directed subcutaneously qid for 30 Days 30 A ug, 2020 Active Proventil HFA 108 [...] at bedtime for 30 Days Active Ergocalciferol 37781 UNIT 1 capsule Orally every 14 days [...] Information RESULTS No Results REASON FOR VISIT C-Diff MEDICAL (GENERAL) HISTORY Type Description Date Medical [...] 2010 normal nerve conduction studies bilateral extremities-[facility] Medical History anemia, iron deficiency Medical History bilateral intertriginous candidiasis of bilateral breasts Medical History hypothalamic hyperhidrosis Medical History insomnia, multifactorial Medical History hypertension-March 2006 no rmal cardiac catheterization-Dr. Storud/ normal dobutamine ST[facility] Medical History history of [...] by Graciela Medical History R PE-dx at [facility]-CT A chest c "small pulmonary emboli [...] bun ion surgery c bone graft/pin- Dr.Frederick Zambrano-[facility] 06/25/16 Surgical History IM nail fo R distal femur re trograde approach [address] Gao-[facility] 02/20/19 Surgical History left and right cataract removal- Dr. Miranda oms-[facility] 09/24 10/25 Hospitalization History hyperkalemia 9.3 [...] - serial EK/T-I, telemetry 11/20- Hospitalization History [id number] respiratory f ailure c desaturation to Sa)2 20% from same day surgery for R bunion surgery, then rehab at [facility] 06/25- Hospitalization History frequent falls-favoring 2 [...] Once a day for 30 day(s) Ergocalciferol 47064 UNIT 1 capsule Orally every 14 days [...] for 30 Days Next Appt Details Provider Name:Blanca Madrid, 2020-12-29 11:45:00 AM, [address] [place] [address] , [place], [address], Provider Name:Kimani Ann, 2021-03-20 1 1:45:00 AM, [address] [place] [address] , [place], [address], Insurance Providers Payer Name Payer Address Payer Phone Insured Name Patient Relati onship to Insured Coverage Start Date Coverage End Date [facility] [employer] [facility] [address] [facility] [phone] CASSIE ARTHUR self
--- OUTSIDE RECORDS SUMMARY | 2020-12-29 15:24 | CCD ---
Author Author [facility] Address Unknown Phone Unavailable Care Team Providers Care Turf Farmer Name Role Phone Jean-Pierre Ling MD Unavailable Unavailable Boljayla, Jean-Pierre Dejesus MD [...] Unavailable Boljayla, Jean-Pierre Dejesus MD Unavailable Unavailable Boljayla, Jean-Pierre [...] Gao MD Unavailable Unavailable Jumalon, M Mar SCRUM COACH Unavailable Unavailable Jumalon, M Mar SCRUM COACH Unavailable Unavailable Jumalon, M Mar SCRUM COACH Unavailable Unavailable Jumalon, M Mar SCRUM COACH Unavailable Unavailable Jumalon, M Mar SCRUM COACH Unavailable Unavailable Jumalon, M Mar SCRUM COACH Unavailable Unavailable Jumalon, M Mar SCRUM COACH Unavailable Unavailable Jumalon, M Mar SCRUM COACH Unavailable Unavailable Jumalon, M Mar SCRUM COACH Unavailable Unavailable Jumalon, M Mar SCRUM COACH Unavailable Unavailable Jumalon, M Mar SCRUM COACH Unavailable Unavailable Jumalon, M Mar SCRUM COACH Unavailable Unavailable Jumalon, M Mar SCRUM COACH Unavailable Unavailable Jumalon, M Mar SCRUM COACH Unavailable Unavailable Jumalon, M Mar SCRUM COACH Unavailable Unavailable Jumalon, M Mar SCRUM COACH Unavailable Unavailable Jumalon, M Mar SCRUM COACH Unavailable Unavailable Jumalon, M Mar SCRUM COACH Unavailable Unavailable Jumalon, M Mar SCRUM COACH Unavailable Unavailable Jumalon, M Mar SCRUM COACH Unavailable Unavailable Jumalon, M Mar SCRUM COACH Unavailable Unavailable Jumalon, M Mar SCRUM COACH Unavailable Unavailable Jumalon, M Mar SCRUM COACH Unavailable Unavailable Jumalon, M Mar SCRUM COACH Unavailable Unavailable Jumalon, M Mar SCRUM COACH Unavailable Unavailable Jumalon, M Mar SCRUM COACH Unavailable Unavailable Jumalon, M Mar SCRUM COACH Unavailable Unavailable Jumalon, M Mar SCRUM COACH Unavailable Unavailable Jumalon, M Mar SCRUM COACH Unavailable Unavailable Jumalon, M Mar SCRUM COACH Unavailable Unavailable Rechlin, P Andrea DO Unavailable [...] is protected by Article 27-F of the [facility] Public Health law. If you continue you may have access to information: Regarding HIV / AIDS; Provided by facilities licensed or operated by the [facility] Office of Mental Health; or Provided by the [facility] Office for People With Developmental Disabilities. If such information is present, then the following [facility] mandated warning applies: This information [...] law may result in a fine or skilled nursing sentence or both. A general authorization for the release of medical or other information is NOT sufficient authorization for further disc losure. Family History Family Member Name Family Member Gender Family Member Status Date o f Status Description Data Source(s) Unknown Unknown Problem [facility] ([facility], ) sister age 48 and another age 59 alive Encounters Encounter Providers Location Date Indications Data Source(s ) Unknown [address] [facility] [address] 12/26/2020 12:00:00 AM EDT [facility] Unknown [address] [facility] [address] 12/19/2020 12:00:00 AM EDT eCW1 ([facility] [place]) Unknown [address] [facility] [address] 12/19/2020 12:00:00 AM EDT eCW1 ([facility] Unknown [address] [facility] [address] 12/19/2020 12:00:00 AM EDT eCW1 ([facility] Unknown [address] [facility] [address] 12/16/2020 12:00:00 AM EDT eCW1 ([facility] Unknown [address] [facility] [address] 12/15/2020 12:00:00 AM EDT eCW1 ([facility] Unknown [address] [facility] [address] 12/05/2020 12:00:00 AM EDT eCW1 ([facility] [place]) Unknown [address] [facility] [place] [address] 11/18/2020 12:00:00 AM EDT eCW1 ([facility]) [place] [address] [facility] [place] [address] 11/17/2020 12:00:00 AM EDT eCW1 ([facility]) [place]patient [address] [facility] [address] 11/14/2020 12:00:00 AM EDT eCW1 ([facility]) Unknown [address] [facility] [address] 11/14/2020 12:00:00 AM EDT eCW1 ([facility]) Unknown [address] [facility] [address] 11/14/2020 12:00:00 AM EDT eCW1 ([facility]) Unknown [address] [facility] [place] [address] 11/13/2020 12:00:00 AM EDT eCW1 ([facility]) Unknown [address] [facility] [place] [address] 11/04/2020 12:00:00 AM EDT eCW1 ([facility]) Unknown [address] [facility] [address] 11/03/2020 12:00:00 AM EDT eCW1 ([facility]) Oleg Ling MD: [address] [address], [facility] [address], Ph. Attender: Oleg Ling MD [place] - [facility] - Main Office 10/24/2020 12:00:00 AM EDT MARILIA ([facility]) Office Visit Attender: Bren RODRIGES Physical Therapy 01:15:00 PM EDT MEDENT ([facility]) [place] [address] [facility] [address] 10/21/2020 12:00:00 AM EDT eCW1 ([facility]) Unknown [address] [facility] [address] 10/21/2020 12:00:00 AM EDT eCW1 ([facility]) Oleg Ling MD: [address], [place] [address], Ph. [phone] Attender: Oleg Ling MD [place] - [facility] 10/20/2020 12:00:00 AM EDT MARILIA ([facility]) Oleg Ling MD: [address], [place] [address], Ph. [phone] Attender: Oleg Ling MD [place] - [facility] 10/20/2020 12:00:00 AM EDT MARILIA ([facility]) Outpatient Attender: Michael Glover/Riri/Angel adame/Avery 10/15/2020 01:00:00 PM EDT EVELYNE ([facility]) Mar Smith, BURNER SHAFT: [address], [place] [address], Ph. Attender: Mar Smith [facility] 10/15/2020 12:00:00 AM EDT VANCE FLORES ([facility]) Mar Smith, BURNER SHAFT: [address], [address], [place] [address], Ph. Attender: Mar Smith [facility] 10/15/2020 12:00:00 AM EDT VANCE FLORES ([facility]) Mar Smith, BURNER SHAFT: [address], [place] [address], Ph. Attender: Mar Smith [facility] - [facility] Main Office 10/15/2020 12:00:00 AM EDT ATHE MARK ([facility]) Outpatient Attender: Andrea Sterling/Riri/Mil/Joe ndrpabha 10/08/2020 09:30:00 AM EDT MEDENT ([facility] Unknown [address] [facility] [address] 10/07/2020 12:00:00 AM EDT eCW1 ([facility]) Outpatient [address] [facility] Y [address] 09/22/2020 12:00:00 AM EDT eCW1 ([facility]) Unknown [address] [place] [address] [place] [address] 09/04/2020 12:00:00 AM EDT eCW1 ([facility]) Unknown [address] [place] [address] [place] [address] 08/28/2020 12:00:00 AM EDT eCW1 [facility]) Unknown [address] [facility] [place] [address] 08/27/2020 12:00:00 AM EDT eCW1 ([facility]) Unknown [address] [facility] [place] [address] 08/25/2020 12:00:00 AM EDT eCW1 ([facility]) Unknown [address] [place] [address] Y [address] 08/14/2020 12:00:00 AM EDT eCW1 ([facility]) Outpatient Attender: Amira Garg 08/11/2020 11:00:00 PM E DT Molecular Biology Director [facility] Molecular Biology Director Outpatient Attender: Amira Harrell/ [facility] 04:00:00 PM EDT MEDENT ([facility] [place]) Oleg Ling MD: [address] [address], [facility] [address], Ph. [phone] Attender: Oleg Ling MD [place] - [facility] 08/11/2020 12:00:00 AM EDT MARILIA ([facility]) Oleg Ling MD: [address], [place] [address], Ph. [phone] Attender: Oleg Ling MD [place] - [facility] 08/11/2020 12:00:00 AM EDT MARILIA ([facility]) Oleg Ling MD: [address], [place] [address], Ph. [phone] Attender: Oleg Ling MD [place] - [facility] 08/11/2020 12:00:00 AM EDT MARILIA ([facility]) Oleg Ling MD: [address], [place] [address], Ph. [phone] Attender: Oleg Ling MD [place] - [facility] 08/11/2020 12:00:00 AM EDT MARILIA ([facility]) Mar Smith, BURNER SHAFT: [address], [place] [address], Ph. Attender: Mar Smith [facility] 08/06/2020 12:00:00 AM EDT ATHMarichuy NA ([facility]) Mar Smith, BURNER SHAFT: [address], [place] [address], Ph. Attender: Mar Smith [facility] - [facility] 08/06/2020 12:00:00 AM EDT ATHE MARK ([facility]) Mar Smith, BURNER SHAFT: [address], [place] [address], Ph. Attender: Mar Smith [facility] - [facility] 08/06/2020 12:00:00 AM EDT ATHE NA ([facility]) Mar Smith, BURNER SHAFT: [address], [place] [address], Ph. Attender: Mar Smith [facility] - [facility] 08/06/2020 12:00:00 AM EDT ATHE NA ([facility]) Mar Smith, BURNER SHAFT: [address], [place] [address], Ph. Attender: Mar Smith [facility] - [facility] 08/06/2020 12:00:00 AM EDT ATHE NA ([facility]) Office Visit Attender: Bren RODRIGES Physical Therapy 10:30:00 AM EDT MEDENT ([facility]) Outpatient Attender: Monica Bal MD 07/14/2020 11:00:00 PM EDT [facility] Outpatient Attender: Monica Bal MD [place]/ Steffen torres 07/14/2020 03:30:00 PM EDT MEDENT ([facility]) Unknown [address] [facility] [place] [address] 07/08/2020 12:00:00 AM EDT eCW1 ([facility]) Unknown [address] [facility] Y [address] 07/07/2020 12:00:00 AM EDT eCW1 ([facility]) Outpatient [address] [facility] Y [address] 07/04/2020 12:00:00 AM EDT eCW1 ([facility]) Unknown [address] [facility] [place] [address] 07/04/2020 12:00:00 AM EDT eCW1 ([facility]) Unknown [address] [facility] [place] [address] 07/04/2020 12:00:00 AM EDT eCW1 ([facility]) Unknown [address] [facility] [place] [address] 07/04/2020 12:00:00 AM EDT eCW1 ([facility]) Unknown [address] [facility] [address] 07/03/2020 12:00:00 AM EDT eCW1 ([facility]) Unknown [address] [facility] [address] 06/30/2020 12:00:00 AM EDT eCW1 ([facility]) Unknown [address] [facility] [address] 06/25/2020 12:00:00 AM EDT eCW1 ([facility]) Unknown [address] [facility] [place] [address] 06/19/2020 12:00:00 AM EDT eCW1 ([facility]) Unknown [address] [facility] [place] [address] 06/19/2020 12:00:00 AM EDT eCW1 ([facility]) Unknown [address] [facility] [address] 06/17/2020 12:00:00 AM EDT eCW1 ([facility]) Unknown [address] [facility] [place] [address] 06/13/2020 12:00:00 AM EDT eCW1 ([facility]) Unknown [address] [facility] [address] 06/09/2020 12:00:00 AM EDT eCW1 ([facility]) Unknown [address] [facility] [address] 06/04/2020 12:00:00 AM EDT eCW1 ([facility]) Unknown [address] [facility] [address] 05/26/2020 12:00:00 AM EDT eCW1 ([facility]) Outpatient [address] [facility] [place] [address] 05/26/2020 12:00:00 AM EDT eCW1 ([facility]) Unknown [address] [facility] [address] 05/20/2020 12:00:00 AM EDT eCW1 ([facility]) Unknown [address] [facility] [place] [address] 05/15/2020 12:00:00 AM EST eCW1 ([facility] Outpatient [address] [facility] [place] [address] 05/12/2020 12:00:00 AM EST eCW1 ([facility]) Mar Smith, BURNER SHAFT: [address], [place] [address], Ph. Attender: Mar Smith [facility] 04/15/2020 12:00:00 AM EST ATHE NA ([facility]) Mar Smith, BURNER SHAFT: [address], [place] [address], Ph. Attender: Mar Smith [facility] 04/15/2020 12:00:00 AM EST ATHE NA ([facility]) Mar Smith, BURNER SHAFT: [address], [place] [address], Ph. Attender: Mar Smith [facility] 04/15/2020 12:00:00 AM EST ATHE NA ([facility]) Mar Smith, BURNER SHAFT: [address], [place] [address], Ph. Attender: Mar Smith [facility] 04/15/2020 12:00:00 AM EST ATHE NA ([facility]) Mar Smith, BURNER SHAFT: [address], [address], [place] [address], Ph. Attender: Mar Smith [facility] 04/15/2020 12:00:00 AM EST ATHE NA ([facility]) Mar Smith, BURNER SHAFT: [address], [place] [address], Ph. Attender: Mar Smith [facility] 04/15/2020 12:00:00 AM EST ATHE NA ([facility]) Outpatient Attender: Monica Bal MD 04/07/2020 09:05 :00 PM EST [facility] Outpatient Attender: Monica Bal MD [place]/ Steffen donovanca 04/07/2020 12:15:00 PM EST MEDENT ([facility]) Oleg Ling MD: [address], [place] [address], Ph. Attender: Oleg Ling MD [facility] 03/31/2020 12:00:00 AM EST MARILIA ([facility]) Oleg Ling MD: [address], [place] [address], Ph. Attender: Oleg Ling MD [place] - [facility] 03/31/2020 12:00:00 AM EST MARILIA ([facility]) Oleg Ling MD: [address], [place] [address], Ph. Attender: O[place] Ling [place] - [facility] 03/31/2020 12:00:00 AM EST MARILIA ([facility]) Oleg Ling MD: [address], [address] [place] [address], Ph. Attender: Oleg Ling MD [place] - [facility] 03/31/2020 12:00:00 AM EST MARILIA ([facility]) Oleg Ling MD: [address], [place] [address], Ph. Attender: Oleg Ling MD [place] - [facility] 03/31/2020 12:00:00 AM EST MARILIA ([facility]) Oleg Ling MD: [address], [place] [address], Ph. Attender: Oleg CHAIREZ - [facility] 03/31/2020 12:00:00 AM EST MARILIA ([facility]) Oleg Ling MD: [address], [place] [address], Ph. Attender: Oleg Ling MD [place] - [facility] 03/31/2020 12:00:00 AM EST MARILIA ([facility]) OFFICE OUTPATIENT VISIT 15 MINUTES Attender: Bren RODRIGES Physical Therapy 03/27/2020 12:45:00 PM EST MEDENT ([facility]) Oleg Ling MD: [address], [place] [address], Ph. [phone] Attender: Oleg Ling MD [place] - [facility] 03/26/2020 12:00:00 AM EST MARILIA ([facility]) Oleg Ling MD: [address], [address], [place] [address], Ph. [phone] Attender: Oleg Ling MD [place] - [facility] 03/26/2020 12:00:00 AM EST MARILIA ([facility]) Oleg Ling MD: [address], [address], [place] [address], Ph. [phone] Attender: Oleg CHAIREZ - [facility] 03/26/2020 12:00:00 AM EST MARILIA ([facility]) Oleg Ling MD: [address], [address], [place] [address], Ph. [phone] Attender: Oleg Ling MD [place] - [facility] 03/26/2020 12:00:00 AM EST MARILIA ([facility]) Oleg Ling MD: [address], [address], [place] [address], Ph. [phone] Attender: Oleg Ling MD [place] - [facility] 03/26/2020 12:00:00 AM EST MARILIA ([facility]) Oleg Ling MD: [address], [address], [place] [address], Ph. [phone] Attender: Oleg Ling MD [place] - [facility] 03/26/2020 12:00:00 AM EST MARILIA ([facility]) Oleg Ling MD: [address], [address], [place] [address], Ph. [phone] Attender: Oelg Ling MD [place] - [facility] 03/26/2020 12:00:00 AM EST MARILIA ([facility]) Oleg Ling MD: [address], [place] [address], Ph. [phone] Attender: Oleg Ling MD [place] - [facility] 03/26/2020 12:00:00 AM EST MARILIA ([facility]) Mar Smith, BURNER SHAFT: [address], [place] [address], Ph. Attender: Martorres Smith [facility] - [facility] 03/18/2020 12:00:00 AM EST ATHE NA ([facility]) Mar Smith, BURNER SHAFT: [address], [place] [address], Ph. Attender: Mar Smith [facility] - [facility] 03/18/2020 12:00:00 AM EST ATHE NA ([facility]) Mar Smith, BURNER SHAFT: [address], [place] [address], Ph. Attender: Mar Smith [facility] - [facility] 03/18/2020 12:00:00 AM EST ATHE NA ([facility]) Mar Smith, BURNER SHAFT: [address], [place] [address], Ph. Attender: Marmarichuy Smith [facility] - [facility] 03/18/2020 12:00:00 AM EST ATHE NA ([facility]) Mar Rodriguez Sarah, BURNER SHAFT: [address], [place] [address], Ph. Attender: Mar Smith [facility] - [facility] 03/18/2020 12:00:00 AM EST ATHE NA ([facility]) Mar Smith, BURNER SHAFT: [address], [place] [address], Ph. Attender: Mar Smith [facility] - [facility] 03/18/2020 12:00:00 AM EST ATHE NA ([facility]) Mar Smith, BURNER SHAFT: [address], [place] [address], Ph. Attender: Mar Smith [facility] - [facility] 03/18/2020 12:00:00 AM EST ATHE NA ([facility]) Mar Smith, BURNER SHAFT: [address], [place] [address], Ph. Attender: Mar Smith [facility] - [facility] 03/18/2020 12:00:00 AM EST ATHE NA ([facility]) Mar Smith, BURNER SHAFT: [address], [place] [address], Ph. Attender: Mar Smith [facility] - [facility] 03/18/2020 12:00:00 AM EST ATHE NA ([facility]) Unknown [address] [facility] [address] 03/14/2020 12:00:00 AM EST eCW1 ([facility]) Unknown [address] [facility] [address] 03/13/2020 12:00:00 AM EST eCW1 ([facility]) Outpatient Attender: Andrea Sterling/Riri/Mil/Joe nd 03/12/2020 09:00:00 AM EST MEDENT ([facility], ) Mar Smith, BURNER SHAFT: [address], [place] [address], Ph. Attender: Mar Smith [facility] - [facility] 02/14/2020 12:00:00 AM EST ATHE NA ([facility]) Mar Smith, BURNER SHAFT: [address], [place] [address], Ph. Attender: Mar Smith [facility] - [facility] 02/14/2020 12:00:00 AM EST ATHE NA ([facility]) Mar Smith, BURNER SHAFT: [address], [place] [address], Ph. Attender: Mar Smith [facility] 02/14/2020 12:00:00 AM EST ATHE NA ([facility]) Mar Smith, BURNER SHAFT: [address], [place] [address], Ph. Attender: Mar Smith [facility] 02/14/2020 12:00:00 AM EST ATHE NA ([facility]) Mar Smith, BURNER SHAFT: [address], [place] [address], Ph. Attender: Mar Smith [facility] - [facility] 02/14/2020 12:00:00 AM EST ATHE NA ([facility]) Mar Smith, BURNER SHAFT: [address], [place] [address], Ph. Attender: Mar Smith [facility] - [facility] 02/14/2020 12:00:00 AM EST ATHE NA ([facility]) Mar Smith, BURNER SHAFT: [address], [place] [address], Ph. Attender: Mar Smith [facility] - [facility] 02/14/2020 12:00:00 AM EST ATHE NA ([facility]) Mar Smith, BURNER SHAFT: [address], [place] [address], Ph. Attender: Mar Smith [facility] 02/14/2020 12:00:00 AM EST ATHE NA ([facility]) Mar Smith, BURNER SHAFT: [address], [place] [address], Ph. Attender: Mar Smith [facility] - [facility] 02/14/2020 12:00:00 AM EST ATHE NA ([facility]) Mar Smith, BURNER SHAFT: [address], [place] [address], Ph. Attender: Mar Smith [facility] 02/14/2020 12:00:00 AM EST ATHE NA ([facility]) Unknown [address] [facility] [address] 02/13/2020 12:00:00 AM EST eCW1 ([facility]) Unknown [address] [facility], [address] [place] [address] 02/06/2020 12:00:00 AM EST eCW1 ([facility]) Outpatient Attender: Amira Garg 01/10/2020 11:00:[address] [employer] [facility] Outpatient Attender: Amira Harrell/ [facility] 12:30:00 PM EST EVELYNE [facility] Preadmit Attender: Cesario Gao MD 01/03/2020 12:00:00 AM EDT S/P R FEMUR FX [facility] S/P R FEMUR FX Outpatient Attender: Monica Bal MD 12/11/2019 11:00 :00 PM EDT [employer] Kettle [employer] [facility] [employer] [place] [address] [facility] [address] 12/06/2019 12:00:00 AM EDT eCW1 ([facility]) Unknown [address] [address] 12/05/2019 12:00:00 AM EDT eCW1 ([facility]) Oleg Ling MD: [address], [place] [address], Ph. Attender: Oleg Ling MD [place] - [facility] 12/03/2019 12:00:00 AM EDT MARILIA ([facility]) Oleg Ling MD: [address], [place] [address], Ph. Attender: Oleg Ling MD [place] - [facility] 12/03/2019 12:00:00 AM EDT MARILIA ([facility]) Oleg Ling MD: [address], [place] [address], Ph. Attender: Oleg CHAIREZ - [facility] 12/03/2019 12:00:00 AM EDT MARILIA ([facility]) Oleg Ling MD: [address]459 [address], [address], [place] [address], Ph. Attender: Oleg Ling MD [place] - [facility] 12/03/2019 12:00:00 AM EDT MARILIA ([facility]) Oleg Ling MD: [address], [address], [place] [address], Ph. Attender: Oleg Ling MD [place] - [facility] 12/03/2019 12:00:00 AM EDT MARILIA ([facility]) Oleg Ling MD: [address], [address], [place] [address], Ph. Attender: Oleg Ling MD [place] - [facility] 12/03/2019 12:00:00 AM EDT MARILIA ([facility]) Oleg Ling MD: [address]338 [address], [address], [place] [address], Ph. Attender: Oleg Ling MD [place] - [facility] 12/03/2019 12:00:00 AM EDT MARILIA ([facility]) Oleg Ling MD: [address]191 [address], [address], [place] [address], Ph. Attender: Oleg CHAIREZ - [facility] 12/03/2019 12:00:00 AM EDT MARILIA ([facility]) Oleg Ling MD: [address]30 [address], [address], [place] [address], Ph. Attender: Oleg CHAIREZ - [facility] 12/03/2019 12:00:00 AM EDT MARILIA ([facility]) Oleg Ling MD: [address]109 [address], [address], [place] [address], Ph. Attender: Oleg Ling MD [place] - [facility] 12/03/2019 12:00:00 AM EDT MARILIA ([facility]) Oleg Ling MD: [address]96 [address], [address], [place] [address], Ph. Attender: Oleg Ling MD [place] - [facility] 12/03/2019 12:00:00 AM EDT MARILIA ([facility]) Oleg Ling MD: [address]17 [address], [address], [place] [address], Ph. [phone] Attender: Oleg Ling MD [place] - [facility] 11/28/2019 12:00:00 AM EDT MARILIA ([facility]) Oleg Ling MD: [address]854 [address], [address], [place] [address], Ph. [phone] Attender: Oleg Ling MD [place] - [facility] 11/28/2019 12:00:00 AM EDT MARILIA ([facility]) Oleg Ling MD: [address]62 [address], [address], [place] [address], Ph. [phone] Attender: Oleg Ling MD [place] - [facility] 11/28/2019 12:00:00 AM EDT MARILIA ([facility]) Oleg Ling MD: [address]96 [address], [address], [place] [address], Ph. [phone] Attender: Oleg Ling MD [place] - [facility] 11/28/2019 12:00:00 AM EDT MARILIA ([facility]) Oleg Ling MD: [address]482 [address], [address], [place] [address], Ph. [phone] Attender: Oleg Ling MD [place] - [facility] 11/28/2019 12:00:00 AM EDT MARILIA ([facility]) Oleg Ling MD: [address]408 [address], [address], [place] [address], Ph. [phone] Attender: Oleg Ling MD [place] - [facility] 11/28/2019 12:00:00 AM EDT MARILIA ([facility]) Oleg Ling MD: [address]4467 [address], [address], [place] [address], Ph. [phone] Attender: Oleg Ling MD [place] - [facility] 11/28/2019 12:00:00 AM EDT MARILIA ([facility]) Oleg Ling MD: [address]30 [address], [address], [place] [address], Ph. [phone] Attender: Oleg Ling MD [place] - [facility] 11/28/2019 12:00:00 AM EDT MARILIA ([facility]) Oleg Ling MD: [address]11 [address], [address], [place] [address], Ph. [phone] Attender: Oleg Ling MD [place] - [facility] 11/28/2019 12:00:00 AM EDT MARILIA ([facility]) Oleg Ling MD: [address]87 [address], [address], [place] [address], Ph. [phone] Attender: Oleg Ling MD [place] - [facility] 11/28/2019 12:00:00 AM EDT MARILIA ([facility]) Oleg Ling MD: [address]73 [address], [address], [place] [address], Ph. [phone] Attender: Oleg Ling MD [place] - [facility] 11/28/2019 12:00:00 AM EDT MARILIA ([facility]) Oleg Ling MD: [address]657 [address], [address], [place] [address], Ph. [phone] Attender: Oleg Ling MD [place] - [facility] - [facility] 11/28/2019 12:00:00 AM EDT MARILIA ([facility]) Oleg Ling MD: [address]08 [address], [address], [place] [address], Ph. [phone] Attender: Oleg Ling MD [place] - [facility] - [facility] 11/23/2019 12:00:00 AM EDT MARILIA ([facility]) Oleg Ling MD: [address]6443 [address], [address], [place] [address], Ph. [phone] Attender: Oleg Ling MD [place] - [facility] - [facility] 11/23/2019 12:00:00 AM EDT MARILIA ([facility]) Oleg Ling MD: [address]27 [address], [address], [place] [address], Ph. [phone] Attender: Oleg Ling MD [place] - [facility] - [facility] 11/23/2019 12:00:00 AM EDT MARILIA ([facility]) Oleg Ling MD: [address]67 [address], [address], [place] [address], Ph. [phone] Attender: Oleg CHAIREZ - [facility] 11/23/2019 12:00:00 AM EDT MARILIA ([facility]) Oleg Ling MD: [address]121 [address], [address], [place] [address], Ph. [phone] Attender: Oleg CHAIREZ - [facility] 11/23/2019 12:00:00 AM EDT MARILIA ([facility]) Oleg Ling MD: 73727 [address], [address], [place] [address], Ph. [phone] Attender: Oleg Ling MD [place] - [facility] 11/23/2019 12:00:00 AM EDT MARILIA ([facility]) Oleg Ling MD: [address]2816 [address], [address], [place] [address], Ph. [phone] Attender: Oleg Ling MD [place] - [facility] 11/23/2019 12:00:00 AM EDT MARILIA ([facility]) Oleg Ling MD: [address]66 [address], [address], [place] [address], Ph. [phone] Attender: Oleg Ling MD [place] - [facility] 11/23/2019 12:00:00 AM EDT MARILIA ([facility]) Oleg Ling MD: [address]02 [address], [address], [place] [address], Ph. [phone] Attender: Oleg Ling MD [place] - [facility] 11/23/2019 12:00:00 AM EDT MARILIA ([facility]) Oleg Ling MD: 24256 [address], [address], [place] [address], Ph. [phone] Attender: Oleg Ling MD [place] - [facility] 11/23/2019 12:00:00 AM EDT MARILIA ([facility]) Oleg Ling MD: [address]85 [address], [address], [place] [address], Ph. [phone] Attender: Oleg Ling MD [place] - [facility] 11/23/2019 12:00:00 AM EDT MARILIA ([facility]) Oleg Ling MD: [address]45 [address], [address], [place] [address], Ph. [phone] Attender: Oleg Ling MD [place] - [facility] 11/23/2019 12:00:00 AM EDT MARILIA ([facility]) Oleg Ling MD: [address]871 [address], [place] [address], Ph. [phone] Attender: Oleg Ling MD [place] - [facility] 11/23/2019 12:00:00 AM EDT MARILIA ([facility]) Mar Rodriguez Sarah, BURNER SHAFT: [address], [place] [address], Ph. Attender: Martorers Smith [facility] 11/22/2019 12:00:00 AM EDT ATHE NA ([facility]) Martorres Macedoroccopapi Smith, BURNER SHAFT: [address], [place] [address], Ph. Attender: Martorres Keaneabigailyue [facility] 11/22/2019 12:00:00 AM EDT ATHE NA ([facility]) Mar Mancandicemickie Smith, BURNER SHAFT: [address], [place] [address], Ph. Attender: Martorres Smith [facility] - [facility] 11/22/2019 12:00:00 AM EDT ATHE NA ([facility]) Mar Remingtonroccopapi Smith, BURNER SHAFT: [address], [place] [address], Ph. Attender: Mar Francisyue [facility] - [facility] 11/22/2019 12:00:00 AM EDT ATHE NA ([facility]) Mar Smith, BURNER SHAFT: [address], [address], [place] [address], Ph. Attender: Mar Smith [facility] - [facility] 11/22/2019 12:00:00 AM EDT ATHE NA ([facility]) Mar Smith, BURNER SHAFT: [address], [address], [place] [address], Ph. Attender: Mra Smith [facility] - [facility] 11/22/2019 12:00:00 AM EDT ATHE NA ([facility]) Mar Smith, BURNER SHAFT: [address], [place] [address], Ph. Attender: Mar Smith [facility] 11/22/2019 12:00:00 AM EDT ATHE NA ([facility]) Mar Smith, BURNER SHAFT: [address], [place] [address], Ph. Attender: Mar Smith [facility] - [facility] 11/22/2019 12:00:00 AM EDT ATHE NA ([facility]) Mar Smith, BURNER SHAFT: [address], [address], [place] [address], Ph. Attender: Mar Smith [facility] - [facility] 11/22/2019 12:00:00 AM EDT ATHE NA ([facility]) Mar Smith, BURNER SHAFT: [address], [place] [address], Ph. Attender: Mar Smith [facility] 11/22/2019 12:00:00 AM EDT ATHE NA ([facility]) Mar Smith, BURNER SHAFT: [address], [address], [place] [address], Ph. Attender: Mar Smith [facility] - [facility] 11/22/2019 12:00:00 AM EDT ATHE NA ([facility]) Mar Smith, BURNER SHAFT: [address], [address], [place] [address], Ph. Attender: Mar Smith [facility] - [facility] 11/22/2019 12:00:00 AM EDT ATHE NA ([facility]) Mar Smith, BURNER SHAFT: [address], [place] [address], Ph. Attender: Mar Smith [facility] - [facility] 11/22/2019 12:00:00 AM EDT ATHE NA ([facility]) Mar Smith, BURNER SHAFT: [address]97 [address], [address], [place] [address], Ph. Attender: Mar Smith [facility] - [facility] 11/22/2019 12:00:00 AM EDT ATHE NA ([facility]) Oleg Ling MD: 09031 [address], [address], [place] [address], Ph. Attender: Oleg Ling MD [place] - [facility] 11/07/2019 12:00:00 AM EDT MARILIA ([facility]) Oleg Ling MD: 26423 [address], [address], [place] [address], Ph. Attender: Oleg Ling MD [place] - [facility] 11/07/2019 12:00:00 AM EDT MARILIA ([facility]) Oleg Ling MD: 07258 [address], [address], [place] [address], Ph. Attender: Oleg Ling MD [place] - [facility] 11/07/2019 12:00:00 AM EDT MARILIA ([facility]) Oleg Ling MD: 20441 [address], [address], [place] [address], Ph. Attender: Oleg CHAIREZ - [facility] 11/07/2019 12:00:00 AM EDT MARILIA ([facility]) Oleg Ling MD: 99141 [address], [address], [place] [address], Ph. Attender: Oleg CHAIREZ - [facility] 11/07/2019 12:00:00 AM EDT MARILIA ([facility]) Oleg Ling MD: 14849 [address], [address], [place] [address], Ph. Attender: Oleg CHAIREZ - [facility] 11/07/2019 12:00:00 AM EDT MARILIA ([facility]) Oleg Ling MD: 52814 [address], [address], [place] [address], Ph. Attender: Oleg CHAIREZ - [facility] 11/07/2019 12:00:00 AM EDT MARILIA ([facility]) Oleg Ling MD: 28020 [address], [address], [place] [address], Ph. Attender: Oleg CHAIREZ - [facility] 11/07/2019 12:00:00 AM EDT MARILIA ([facility]) Oleg Ling MD: 02274 [address], [address], [place] [address], Ph. Attender: Oleg CHAIREZ - [facility] 11/07/2019 12:00:00 AM EDT MARILIA ([facility]) Oleg Ling MD: 32738 [address], [address], [place] [address], Ph. Attender: Oleg CHAIREZ - [facility] 11/07/2019 12:00:00 AM EDT MARILIA ([facility]) Oleg Ling MD: 25070 [address], [address], [place] [address], Ph. Attender: Oleg CHAIREZ - [facility] 11/07/2019 12:00:00 AM EDT MARILIA ([facility]) Oleg Ling MD: 46888 [address], [address], [place] [address], Ph. Attender: Oleg CHAIREZ - [facility] 11/07/2019 12:00:00 AM EDT MARILIA ([facility]) Oleg Ling MD: 84237 [address], [address], [place] [address], Ph. Attender: Oleg CHAIREZ - [facility] 11/07/2019 12:00:00 AM EDT MARILIA ([facility]) Oleg Ling MD: 06833 [address], [address], [place] [address], Ph. Attender: Oleg Ling MD [place] - [facility] 11/07/2019 12:00:00 AM EDT MARILIA ([facility]) Oleg Ling MD: 12089 [address], [address], [place] [address], Ph. Attender: Oleg Ling MD [place] - [facility] 11/07/2019 12:00:00 AM EDT MARILIA ([facility]) Oleg Ling MD: 63385 [address], [address], [place] [address], Ph. [phone] Attender: Oleg Ling MD [place] - [facility] 11/02/2019 12:00:00 AM EDT MARILIA ([facility]) Oleg Ling MD: [address]1750 [address], [address], [place] [address], Ph. [phone] Attender: Oleg Ling MD [place] - [facility] 11/02/2019 12:00:00 AM EDT MARILIA ([facility]) Oleg Ling MD: 51035 [address], [address], [place] [address], Ph. [phone] Attender: Oleg Ling MD [place] - [facility] 11/02/2019 12:00:00 AM EDT MARILIA ([facility]) Oleg Ling MD: 79216 [address], [address], [place] [address], Ph. [phone] Attender: Oleg Ling MD [place] - [facility] 11/02/2019 12:00:00 AM EDT MARILIA ([facility]) Oleg Ling MD: 64160 [address], [address], [place] [address], Ph. [phone] Attender: Oleg CHAIREZ - [facility] 11/02/2019 12:00:00 AM EDT MARILIA ([facility]) Oleg Ling MD: 03307 [address], [address], [place] [address], Ph. [phone] Attender: Oleg Ling MD [place] - [facility] 11/02/2019 12:00:00 AM EDT MARILIA ([facility]) Oleg Ling MD: 97607 [address], [address], [place] [address], Ph. [phone] Attender: Oleg Ling MD [place] - [facility] 11/02/2019 12:00:00 AM EDT MARILIA ([facility]) Oleg Ling MD: 28366 [address], [address], [place] [address], Ph. [phone] Attender: Oleg Ling MD [place] - [facility] 11/02/2019 12:00:00 AM EDT MARILIA ([facility]) Oleg Ling MD: 47049 [address], [address], [place] [address], Ph. [phone] Attender: Oleg Ling MD [place] - [facility] 11/02/2019 12:00:00 AM EDT MARILIA ([facility]) Oleg Ling MD: 25045 [address], [address], [place] [address], Ph. [phone] Attender: Oleg Ling MD [place] - [facility] 11/02/2019 12:00:00 AM EDT MARILIA ([facility]) Oleg Ling MD: 46235 [address], [address], [place] [address], Ph. [phone] Attender: Oleg Ling MD [place] - [facility] 11/02/2019 12:00:00 AM EDT MARILIA ([facility]) Oleg Ling MD: [address]78 [address], [place] [address], Ph. [phone] Attender: Oleg Ling MD [place] - [facility] 11/02/2019 12:00:00 AM EDT MARILIA ([facility]) Oleg Ling MD: 59452 [address], [address], [place] [address], Ph. [phone] Attender: Oleg Ling MD [facility] 11/02/2019 12:00:00 AM EDT MARILIA ([facility]) Oleg Ling MD: [address]17 [address], [place] [address], Ph. [phone] Attender: Oleg Ling MD [facility] 11/02/2019 12:00:00 AM EDT MARILIA ([facility]) Oleg Ling MD: [address]117 [address], [address], [place] [address], Ph. [phone] Attender: Oleg Ling MD [facility] 11/02/2019 12:00:00 AM EDT MARILIA ([facility]) Oleg Ling MD: 35362 [address], [place] [address], Ph. [phone] Attender: Oleg Ling MD [facility] 11/02/2019 12:00:00 AM EDT MARILIA ([facility]) Immunizations Vaccine Date Status Description Data Source(s) COVID-19 VACCINE Moderna 11/05/2020 12:00:00 AM EDT completed [facility] Vaccine Series Complete: YESThis Data wa s Submitted to [facility] Via [facility]. COVID-19 VACCINE Moderna 10/01/2020 12:00:00 AM EDT completed [facility] Vaccine Series Complete: NOThis Data was Submitted to [facility] [employer]. Medications Medication Brand Name Start Date Product Form Dose Route Admi nistrative Instructions Pharmacy Instructions Status Indications Reaction Description Data Source(s) NITROFURANTOIN, MACROCRYSTALS 25 MG / Ni trofurantoin, Monohydrate 75 MG Oral Capsule [Macrobid] Macrobid 100 MG Macrobid 100 MG 11/17/2020 12:00:00 AM EDT active Macrobid 100 MG eCW1 ([facility]) NITROFURANTOIN, MACROCRYSTALS 25 MG / Ni trofurantoin, Monohydrate 75 MG Oral Capsule [Macrobid] Macrobid 100 MG Macrobid 100 MG 11/17/2020 12:00:00 AM EDT active Macrobid 100 MG eCW1 ([facility]) NITROFURANTOIN, MACROCRYSTALS 25 MG / Ni trofurantoin, Monohydrate 75 MG Oral Capsule [Macrobid] Macrobid 100 MG Macrobid 100 MG 11/17/2020 12:00:00 AM EDT active Macrobid 100 MG eCW1 ([facility]) NITROFURANTOIN, MACROCRYSTALS 25 MG / Ni trofurantoin, Monohydrate 75 MG Oral Capsule [Macrobid] Macrobid 100 MG Macrobid 100 MG 11/17/2020 12:00:00 AM EDT active Macrobid 100 MG eCW1 ([facility]) NITROFURANTOIN, MACROCRYSTALS 25 MG / Ni trofurantoin, Monohydrate 75 MG Oral Capsule [Macrobid] Macrobid 100 MG Macrobid 100 MG 11/17/2020 12:00:00 AM EDT active Macrobid 100 MG eCW1 ([facility]) NITROFURANTOIN, MACROCRYSTALS 25 MG / Ni trofurantoin, Monohydrate 75 MG Oral Capsule [Macrobid] Macrobid 100 MG Macrobid 100 MG 11/17/2020 12:00:00 AM EDT active Macrobid 100 MG eCW1 ([facility]) NITROFURANTOIN, MACROCRYSTALS 25 MG / Ni trofurantoin, Monohydrate 75 MG Oral Capsule [Macrobid] Macrobid 100 MG Macrobid 100 MG 11/17/2020 12:00:00 AM EDT active Macrobid 100 MG eCW1 ([facility]) NITROFURANTOIN, MACROCRYSTALS 25 MG / Ni trofurantoin, Monohydrate 75 MG Oral Capsule [Macrobid] Macrobid 100 MG Macrobid 100 MG 11/17/2020 12:00:00 AM EDT active Macrobid 100 MG eCW1 ([facility]) NITROFURANTOIN, MACROCRYSTALS 25 MG / Ni trofurantoin, Monohydrate 75 MG Oral Capsule [Macrobid] Macrobid 100 MG Macrobid 100 MG 11/17/2020 12:00:00 AM EDT active Macrobid 100 MG eCW1 ([facility]) NITROFURANTOIN, MACROCRYSTALS 25 MG / Ni trofurantoin, Monohydrate 75 MG Oral Capsule [Macrobid] Macrobid 100 MG Macrobid 100 MG 11/17/2020 12:00:00 AM EDT active Macrobid 100 MG eCW1 ([facility]) NITROFURANTOIN, MACROCRYSTALS 25 MG / Ni trofurantoin, Monohydrate 75 MG Oral Capsule [Macrobid] Macrobid 100 MG Macrobid 100 MG 11/17/2020 12:00:00 AM EDT active Macrobid 100 MG eCW1 ([facility]) NITROFURANTOIN, MACROCRYSTALS 25 MG / Ni trofurantoin, Monohydrate 75 MG Oral Capsule [Macrobid] Macrobid 100 MG Macrobid 100 MG 11/17/2020 12:00:00 AM EDT active Macrobid 100 MG eCW1 ([facility]) Mupirocin 0.02 MG/MG Topical Ointment Mupirocin 2 % Mupiroci n 2 % 11/14/2020 12:00:00 AM EDT active Mupiroci n 2 % eCW1 ([facility]) Mupirocin 0.02 MG/MG Topical Ointment Mupirocin 2 % Mupiroci n 2 % 11/14/2020 12:00:00 AM EDT active Mupiroci n 2 % eCW1 ([facility]) Mupirocin 0.02 MG/MG Topical Ointment Mupirocin 2 % Mupiroci n 2 % 11/14/2020 12:00:00 AM EDT active Mupiroci n 2 % eCW1 ([facility]) ferric carboxymaltose 50 MG/ML Injectabl e Solution [Injectafer] Injectafer 750 MG/15ML Injectafer 750 MG/15ML 11/14/2020 12:00:00 AM EDT active Injectafer 750 MG/15ML eCW1 ([facility]) Mupirocin 0.02 MG/MG Topical Ointment Mupirocin 2 % Mupiroci n 2 % 11/14/2020 12:00:00 AM EDT active Mupiroci n 2 % eCW1 ([facility]) ferric carboxymaltose 50 MG/ML Injectabl e Solution [Injectafer] Injectafer 750 MG/15ML Injectafer 750 MG/15ML 11/14/2020 12:00:00 AM EDT active Injectafer 750 MG/15ML eCW1 ([facility]) ferric carboxymaltose 50 MG/ML Injectabl e Solution [Injectafer] Injectafer 750 MG/15ML Injectafer 750 MG/15ML 11/14/2020 12:00:00 AM EDT active Injectafer 750 MG/15ML eCW1 ([facility]) Mupirocin 0.02 MG/MG Topical Ointment Mupirocin 2 % Mupiroci n 2 % 11/14/2020 12:00:00 AM EDT active Mupiroci n 2 % eCW1 ([facility]) Mupirocin 0.02 MG/MG Topical Ointment Mupirocin 2 % Mupiroci n 2 % 11/14/2020 12:00:00 AM EDT active Mupiroci n 2 % eCW1 ([facility]) ferric carboxymaltose 50 MG/ML Injectabl e Solution [Injectafer] Injectafer 750 MG/15ML Injectafer 750 MG/15ML 11/14/2020 12:00:00 AM EDT active Injectafer 750 MG/15ML eCW1 ([facility]) ferric carboxymaltose 50 MG/ML Injectabl e Solution [Injectafer] Injectafer 750 MG/15ML Injectafer 750 MG/15ML 11/14/2020 12:00:00 AM EDT active Injectafer 750 MG/15ML eCW1 ([facility]) ferric carboxymaltose 50 MG/ML Injectabl e Solution [Injectafer] Injectafer 750 MG/15ML Injectafer 750 MG/15ML 11/14/2020 12:00:00 AM EDT active Injectafer 750 MG/15ML eCW1 ([facility]) Mupirocin 0.02 MG/MG Topical Ointment Mupirocin 2 % Mupiroci n 2 % 11/14/2020 12:00:00 AM EDT active Mupiroci n 2 % eCW1 ([facility]) ferric carboxymaltose 50 MG/ML Injectabl e Solution [Injectafer] Injectafer 750 MG/15ML Injectafer 750 MG/15ML 11/14/2020 12:00:00 AM EDT active Injectafer 750 MG/15ML eCW1 ([facility]) ferric carboxymaltose 50 MG/ML Injectabl e Solution [Injectafer] Injectafer 750 MG/15ML Injectafer 750 MG/15ML 11/14/2020 12:00:00 AM EDT active Injectafer 750 MG/15ML eCW1 ([facility]) Mupirocin 0.02 MG/MG Topical Ointment Mupirocin 2 % Mupiroci n 2 % 11/14/2020 12:00:00 AM EDT active Mupiroci n 2 % eCW1 ([facility]) ferric carboxymaltose 50 MG/ML Injectabl e Solution [Injectafer] Injectafer 750 MG/15ML Injectafer 750 MG/15ML 11/14/2020 12:00:00 AM EDT active Injectafer 750 MG/15ML eCW1 ([facility]) Mupirocin 0.02 MG/MG Topical Ointment Mupirocin 2 % Mupiroci n 2 % 11/14/2020 12:00:00 AM EDT active Mupiroci n 2 % eCW1 ([facility]) Mupirocin 0.02 MG/MG Topical Ointment Mupirocin 2 % Mupiroci n 2 % 11/14/2020 12:00:00 AM EDT active Mupiroci n 2 % eCW1 ([facility]) ferric carboxymaltose 50 MG/ML Injectabl e Solution [Injectafer] Injectafer 750 MG/15ML Injectafer 750 MG/15ML 11/14/2020 12:00:00 AM EDT active Injectafer 750 MG/15ML eCW1 ([facility]) ferric carboxymaltose 50 MG/ML Injectabl e Solution [Injectafer] Injectafer 750 MG/15ML Injectafer 750 MG/15ML 11/14/2020 12:00:00 AM EDT active Injectafer 750 MG/15ML eCW1 ([facility]) ferric carboxymaltose 50 MG/ML Injectabl e Solution [Injectafer] Injectafer 750 MG/15ML Injectafer 750 MG/15ML 11/14/2020 12:00:00 AM EDT active Injectafer 750 MG/15ML eCW1 ([facility]) ferric carboxymaltose 50 MG/ML Injectabl e Solution [Injectafer] Injectafer 750 MG/15ML Injectafer 750 MG/15ML 11/14/2020 12:00:00 AM EDT active Injectafer 750 MG/15ML eCW1 ([facility]) Mupirocin 0.02 MG/MG Topical Ointment Mupirocin 2 % Mupiroci n 2 % 11/14/2020 12:00:00 AM EDT active Mupiroci n 2 % eCW1 ([facility]) Mupirocin 0.02 MG/MG Topical Ointment Mupirocin 2 % Mupiroci n 2 % 11/14/2020 12:00:00 AM EDT active Mupiroci n 2 % eCW1 ([facility]) Mupirocin 0.02 MG/MG Topical Ointment Mupirocin 2 % Mupiroci n 2 % 11/14/2020 12:00:00 AM EDT active Mupiroci n 2 % eCW1 ([facility]) magnesium citrate 58.2 MG/ML Oral Solution Magnesium Citrate 11/11/2020 12:00:00 AM EDT active MEDENT ([facility], ) POLYETHYLENE GLYCOL 3350 142 MG/ML Oral Solution [Miralax] M iralax 11/11/2020 12:00:00 AM EDT active M EDENT ([facility], ) Blood Glucose Test - Blood Glucose Test - 11/03/2020 12:00:00 AM EDT active Blood Glucose Test - eCW1 ([facility]) Blood Glucose Test - Blood Glucose Test - 11/03/2020 12:00:00 AM EDT active Blood Glucose Test - eCW1 ([facility]) Blood Glucose Test - Blood Glucose Test - 11/03/2020 12:00:00 AM EDT active Blood Glucose Test - eCW1 ([facility]) Lancets - Lancets - 11/03/2020 12:00:00 AM EDT act андрей Lancets - eCW1 ([facility]) Glucometer UNK 11/03/2020 12:00:00 AM EDT active Glucometer eCW1 ([facility]) Glucometer UNK 11/03/2020 12:00:00 AM EDT active Glucometer eCW1 ([facility]) Glucometer UNK 11/03/2020 12:00:00 AM EDT active Glucometer eCW1 ([facility]) Glucometer UNK 11/03/2020 12:00:00 AM EDT active Glucometer eCW1 ([facility]) Blood Glucose Test - Blood Glucose Test - 11/03/2020 12:00:00 AM EDT active Blood Glucose Test - eCW1 ([facility]) Glucometer UNK 11/03/2020 12:00:00 AM EDT active Glucometer eCW1 ([facility]) Lancets - Lancets - 11/03/2020 12:00:00 AM EDT act андрей Lancets - eCW1 ([facility]) Blood Glucose Test - Blood Glucose Test - 11/03/2020 12:00:00 AM EDT active Blood Glucose Test - eCW1 ([facility]) Lancets - Lancets - 11/03/2020 12:00:00 AM EDT act андрей Lancets - eCW1 ([facility]) Lancets - Lancets - 11/03/2020 12:00:00 AM EDT act андрей Lancets - eCW1 ([facility]) Lancets - Lancets - 11/03/2020 12:00:00 AM EDT act андрей Lancets - eCW1 ([facility]) Lancets - Lancets - 11/03/2020 12:00:00 AM EDT act андрей Lancets - eCW1 ([facility]) Glucometer UNK 11/03/2020 12:00:00 AM EDT active Glucometer eCW1 ([facility]) Blood Glucose Test - Blood Glucose Test - 11/03/2020 12:00:00 AM EDT active Blood Glucose Test - eCW1 ([facility]) Glucometer UNK 11/03/2020 12:00:00 AM EDT active Glucometer eCW1 ([facility]) Blood Glucose Test - Blood Glucose Test - 11/03/2020 12:00:00 AM EDT active Blood Glucose Test - eCW1 ([facility]) Glucometer UNK 11/03/2020 12:00:00 AM EDT active Glucometer eCW1 ([facility]) Blood Glucose Test - Blood Glucose Test - 11/03/2020 12:00:00 AM EDT active Blood Glucose Test - eCW1 ([facility]) Lancets - Lancets - 11/03/2020 12:00:00 AM EDT act андрей Lancets - eCW1 ([facility]) Blood Glucose Test - Blood Glucose Test - 11/03/2020 12:00:00 AM EDT active Blood Glucose Test - eCW1 ([facility]) Lancets - Lancets - 11/03/2020 12:00:00 AM EDT act андрей Lancets - eCW1 ([facility]) Blood Glucose Test - Blood Glucose Test - 11/03/2020 12:00:00 AM EDT active Blood Glucose Test - eCW1 ([facility]) Lancets - Lancets - 11/03/2020 12:00:00 AM EDT act андрей Lancets - eCW1 ([facility]) Glucometer UNK 11/03/2020 12:00:00 AM EDT active Glucometer eCW1 ([facility]) Glucometer UNK 11/03/2020 12:00:00 AM EDT active Glucometer eCW1 ([facility]) Blood Glucose Test - Blood Glucose Test - 11/03/2020 12:00:00 AM EDT active Blood Glucose Test - eCW1 ([facility]) Lancets - Lancets - 11/03/2020 12:00:00 AM EDT act андрей Lancets - eCW1 ([facility]) Lancets - Lancets - 11/03/2020 12:00:00 AM EDT act андрей Lancets - eCW1 ([facility]) Glucometer UNK 11/03/2020 12:00:00 AM EDT active Glucometer eCW1 ([facility]) Lancets - Lancets - 11/03/2020 12:00:00 AM EDT act андрей Lancets - eCW1 ([facility]) Lancets - Lancets - 11/03/2020 12:00:00 AM EDT act андрей Lancets - eCW1 ([facility]) Glucometer UNK 11/03/2020 12:00:00 AM EDT active Glucometer eCW1 ([facility]) Blood Glucose Test - Blood Glucose Test - 11/03/2020 12:00:00 AM EDT active Blood Glucose Test - eCW1 ([facility]) Blood Glucose Test - Blood Glucose Test - 11/03/2020 12:00:00 AM EDT active Blood Glucose Test - eCW1 ([facility]) Glucometer UNK 11/03/2020 12:00:00 AM EDT active Glucometer eCW1 ([facility]) Lancets - Lancets - 11/03/2020 12:00:00 AM EDT act андрей Lancets - eCW1 ([facility]) Blood Glucose Test - Blood Glucose Test - 11/03/2020 12:00:00 AM EDT active Blood Glucose Test - eCW1 ([facility]) Glucometer UNK 11/03/2020 12:00:00 AM EDT active Glucometer eCW1 ([facility]) Lancets - Lancets - 11/03/2020 12:00:00 AM EDT act андрей Lancets - eCW1 ([facility]) Blood Glucose Test - Blood Glucose Test - 11/03/2020 12:00:00 AM EDT active Blood Glucose Test - eCW1 ([facility]) Lancets - Lancets - 11/03/2020 12:00:00 AM EDT act андрей Lancets - eCW1 ([facility]) Blood Glucose Test - Blood Glucose Test - 11/03/2020 12:00:00 AM EDT active Blood Glucose Test - eCW1 ([facility]) Glucometer UNK 11/03/2020 12:00:00 AM EDT active Glucometer eCW1 ([facility]) Glucometer UNK 11/03/2020 12:00:00 AM EDT active Glucometer eCW1 ([facility]) POLYETHYLENE GLYCOL 3350 142 MG/ML Oral Solution [Miralax] M iralax 10/15/2020 12:00:00 AM EDT ORAL active M EDENT ([facility]) Alprazolam 1 MG Oral Tablet Alprazolam 08/11/2020 12:00:00 AM EDT ORAL active [facility] [place] Fluconazole 150 MG Oral Tablet [Diflucan] Diflucan 08/11/2020 1 2:00:00 AM EDT ORAL active MEDENT ([facility] [place]) Botox 50 Units For Waste For 200 Units JW Modifier 07/23/2020 12:00:00 AM EDT completed MEDENT ([facility] [place]) Medication administered onsite Botox 200 Units- I Vial 07/23/2020 12:00:00 AM EDT completed MEDENT ([facility] [place]) Medication administered onsite cefdinir 300 MG Oral Capsule Cefdinir 07/16/2020 12:00:00 AM EDT ORAL completed MED[facility] ([facility] [place]) 60 ACTUAT Fluticasone propionate 0.25 MG /ACTUAT / salmeterol 0.05 MG/ACTUAT Dry Powder Inhaler [Advair] Advair Diskus 250-50 MCG/DOSE Advair Diskus 250-50 MCG/DOSE 07/07/2020 12:00:00 AM EDT 1.0 {puff} activ e Advair Diskus 250-50 MCG/DOSE eCW1 ([facility]) 60 ACTUAT Fluticasone propionate 0.25 MG /ACTUAT / salmeterol 0.05 MG/ACTUAT Dry Powder Inhaler [Advair] Advair Diskus 250-50 MCG/DOSE Advair Diskus 250-50 MCG/DOSE 07/07/2020 12:00:00 AM EDT 1.0 {puff} activ e Advair Diskus 250-50 MCG/DOSE eCW1 ([facility]) 60 ACTUAT Fluticasone propionate 0.25 MG /ACTUAT / salmeterol 0.05 MG/ACTUAT Dry Powder Inhaler [Advair] Advair Diskus 250-50 MCG/DOSE Advair Diskus 250-50 MCG/DOSE 07/07/2020 12:00:00 AM EDT 1.0 {puff} activ e Advair Diskus 250-50 MCG/DOSE eCW1 ([facility]) 60 ACTUAT Fluticasone propionate 0.25 MG /ACTUAT / salmeterol 0.05 MG/ACTUAT Dry Powder Inhaler [Advair] Advair Diskus 250-50 MCG/DOSE Advair Diskus 250-50 MCG/DOSE 07/07/2020 12:00:00 AM EDT 1.0 {puff} activ e Advair Diskus 250-50 MCG/DOSE eCW1 ([facility]) 60 ACTUAT Fluticasone propionate 0.25 MG /ACTUAT / salmeterol 0.05 MG/ACTUAT Dry Powder Inhaler [Advair] Advair Diskus 250-50 MCG/DOSE Advair Diskus 250-50 MCG/DOSE 07/07/2020 12:00:00 AM EDT 1.0 {puff} activ e Advair Diskus 250-50 MCG/DOSE eCW1 ([facility]) 60 ACTUAT Fluticasone propionate 0.25 MG /ACTUAT / salmeterol 0.05 MG/ACTUAT Dry Powder Inhaler [Advair] Advair Diskus 250-50 MCG/DOSE Advair Diskus 250-50 MCG/DOSE 07/07/2020 12:00:00 AM EDT 1.0 {puff} activ e Advair Diskus 250-50 MCG/DOSE eCW1 ([facility]) 60 ACTUAT Fluticasone propionate 0.25 MG /ACTUAT / salmeterol 0.05 MG/ACTUAT Dry Powder Inhaler [Advair] Advair Diskus 250-50 MCG/DOSE Advair Diskus 250-50 MCG/DOSE 07/07/2020 12:00:00 AM EDT 1.0 {puff} activ e Advair Diskus 250-50 MCG/DOSE eCW1 ([facility]) 60 ACTUAT Fluticasone propionate 0.25 MG /ACTUAT / salmeterol 0.05 MG/ACTUAT Dry Powder Inhaler [Advair] Advair Diskus 250-50 MCG/DOSE Advair Diskus 250-50 MCG/DOSE 07/07/2020 12:00:00 AM EDT 1.0 {puff} activ e Advair Diskus 250-50 MCG/DOSE eCW1 ([facility]) 60 ACTUAT Fluticasone propionate 0.25 MG /ACTUAT / salmeterol 0.05 MG/ACTUAT Dry Powder Inhaler [Advair] Advair Diskus 250-50 MCG/DOSE Advair Diskus 250-50 MCG/DOSE 07/07/2020 12:00:00 AM EDT 1.0 {puff} activ e Advair Diskus 250-50 MCG/DOSE eCW1 ([facility]) 60 ACTUAT Fluticasone propionate 0.25 MG /ACTUAT / salmeterol 0.05 MG/ACTUAT Dry Powder Inhaler [Advair] Advair Diskus 250-50 MCG/DOSE Advair Diskus 250-50 MCG/DOSE 07/07/2020 12:00:00 AM EDT 1.0 {puff} activ e Advair Diskus 250-50 MCG/DOSE eCW1 ([facility]) 60 ACTUAT Fluticasone propionate 0.25 MG /ACTUAT / salmeterol 0.05 MG/ACTUAT Dry Powder Inhaler [Advair] Advair Diskus 250-50 MCG/DOSE Advair Diskus 250-50 MCG/DOSE 07/07/2020 12:00:00 AM EDT 1.0 {puff} activ e Advair Diskus 250-50 MCG/DOSE eCW1 ([facility]) 60 ACTUAT Fluticasone propionate 0.25 MG /ACTUAT / salmeterol 0.05 MG/ACTUAT Dry Powder Inhaler [Advair] Advair Diskus 250-50 MCG/DOSE Advair Diskus 250-50 MCG/DOSE 07/07/2020 12:00:00 AM EDT 1.0 {puff} activ e Advair Diskus 250-50 MCG/DOSE eCW1 ([facility]) 60 ACTUAT Fluticasone propionate 0.25 MG /ACTUAT / salmeterol 0.05 MG/ACTUAT Dry Powder Inhaler [Advair] Advair Diskus 250-50 MCG/DOSE Advair Diskus 250-50 MCG/DOSE 07/07/2020 12:00:00 AM EDT 1.0 {puff} activ e Advair Diskus 250-50 MCG/DOSE eCW1 ([facility]) Alprazolam 1 MG Oral Tablet Alprazolam 05/29/2020 12:00:00 AM EDT ORAL completed [facility] ([facility] [place] POLYETHYLENE GLYCOL 3350 142 MG/ML Oral Solution [Dawn lax] MiraLax 17 GM/SCOOP MiraLax 17 GM/SCOOP 05/26/2020 12:00:00 AM EDT active MiraLax 17 GM/SCOOP eCW1 ([facility]) POLYETHYLENE GLYCOL 3350 142 MG/ML Oral Solution [Dawn lax] MiraLax 17 GM/SCOOP MiraLax 17 GM/SCOOP 05/26/2020 12:00:00 AM EDT active MiraLax 17 GM/SCOOP eCW1 ([facility]) POLYETHYLENE GLYCOL 3350 142 MG/ML Oral Solution [Dawn lax] MiraLax 17 GM/SCOOP MiraLax 17 GM/SCOOP 05/26/2020 12:00:00 AM EDT active MiraLax 17 GM/SCOOP eCW1 ([facility]) POLYETHYLENE GLYCOL 3350 142 MG/ML Oral Solution [Dawn lax] MiraLax 17 GM/SCOOP MiraLax 17 GM/SCOOP 05/26/2020 12:00:00 AM EDT active MiraLax 17 GM/SCOOP eCW1 ([facility]) POLYETHYLENE GLYCOL 3350 142 MG/ML Oral Solution [Dawn lax] MiraLax 17 GM/SCOOP MiraLax 17 GM/SCOOP 05/26/2020 12:00:00 AM EDT active MiraLax 17 GM/SCOOP eCW1 ([facility]) POLYETHYLENE GLYCOL 3350 142 MG/ML Oral Solution [Dawn lax] MiraLax 17 GM/SCOOP MiraLax 17 GM/SCOOP 05/26/2020 12:00:00 AM EDT active MiraLax 17 GM/SCOOP eCW1 ([facility]) POLYETHYLENE GLYCOL 3350 142 MG/ML Oral Solution [Dawn lax] MiraLax 17 GM/SCOOP MiraLax 17 GM/SCOOP 05/26/2020 12:00:00 AM EDT active MiraLax 17 GM/SCOOP eCW1 ([facility]) POLYETHYLENE GLYCOL 3350 142 MG/ML Oral Solution [Dawn lax] MiraLax 17 GM/SCOOP MiraLax 17 GM/SCOOP 05/26/2020 12:00:00 AM EDT active MiraLax 17 GM/SCOOP eCW1 ([facility]) POLYETHYLENE GLYCOL 3350 142 MG/ML Oral Solution [Dawn lax] MiraLax 17 GM/SCOOP MiraLax 17 GM/SCOOP 05/26/2020 12:00:00 AM EDT active MiraLax 17 GM/SCOOP eCW1 ([facility]) POLYETHYLENE GLYCOL 3350 142 MG/ML Oral Solution [Dawn lax] MiraLax 17 GM/SCOOP MiraLax 17 GM/SCOOP 05/26/2020 12:00:00 AM EDT active MiraLax 17 GM/SCOOP eCW1 ([facility]) POLYETHYLENE GLYCOL 3350 142 MG/ML Oral Solution [Dawn lax] MiraLax 17 GM/SCOOP MiraLax 17 GM/SCOOP 05/26/2020 12:00:00 AM EDT active MiraLax 17 GM/SCOOP eCW1 ([facility]) 60 ACTUAT Albuterol 0.09 MG/ACTUAT Metered Dose Inhaler Albu terol Sulfate HFA 04/25/2020 12:00:00 AM EST RESPIRATORY active MEDENT ([facility], ) NITROFURANTOIN, MACROCRYSTALS 50 MG Oral Capsule [Macrodanti n] Macrodantin 04/09/2020 12:00:00 AM EST ORAL completed MEDENT ([facility] [place]) Ciprofloxacin 500 MG Oral Tablet Ciprofloxacin HCL 04/09/2020 12:00 :00 AM EST ORAL completed [facility] ([facility] [place] Cyclobenzaprine hydrochloride 10 MG Oral Tablet Cyclob enzaprine HCl 10 MG Cyclobenzaprine HCl 10 MG 02/07/2020 12:00:00 AM EST active Cyclobenzaprine HCl 10 MG eCW1 ([facility]) Cyclobenzaprine hydrochloride 10 MG Oral Tablet Cyclob enzaprine HCl 10 MG Cyclobenzaprine HCl 10 MG 02/07/2020 12:00:00 AM EST active Cyclobenzaprine HCl 10 MG eCW1 ([facility]) Cyclobenzaprine hydrochloride 5 MG Oral Tablet Cyclobe nzaprine HCl 5 MG Cyclobenzaprine HCl 5 MG 02/07/2020 12:00:00 AM EST active Cyclobenzaprine HCl 5 MG eCW1 ([facility]) Cyclobenzaprine hydrochloride 10 MG Oral Tablet Cyclob enzaprine HCl 10 MG Cyclobenzaprine HCl 10 MG 02/07/2020 12:00:00 AM EST active Cyclobenzaprine HCl 10 MG eCW1 ([facility]) Metronidazole 500 MG Oral Tablet Metronidazole 01/14/2020 12:00:00 AM EST ORAL active MEDENT ([facility] [place]) Tamsulosin hydrochloride 0.4 MG Oral Capsule Tamsulosin HCL 01/10/2020 12:00:00 AM EST active MEDENT ([facility]) NITROFURANTOIN, MACROCRYSTALS 25 MG / Ni trofurantoin, Monohydrate 75 MG Oral Capsule [Macrobid] Macrobid 01/10/2020 12:00:00 AM EST ORAL completed [facility] Ciprofloxacin 250 MG Oral Tablet Ciprofloxacin HCL 12/13/2019 12:00 :00 AM EDT ORAL completed [facility] ([facility] [place] Amitriptyline Hydrochloride 25 MG Oral Tablet Amitript yline HCl 25 MG Amitriptyline HCl 25 MG 12/06/2019 12:00:00 AM EDT active Amitriptyline HCl 25 MG eCW1 ([facility]) Amitriptyline Hydrochloride 25 MG Oral Tablet Amitript yline HCl 25 MG Amitriptyline HCl 25 MG 12/06/2019 12:00:00 AM EDT active Amitriptyline HCl 25 MG eCW1 ([facility]) Amitriptyline Hydrochloride 25 MG Oral Tablet Amitript yline HCl 25 MG Amitriptyline HCl 25 MG 12/06/2019 12:00:00 AM EDT active Amitriptyline HCl 25 MG eCW1 ([facility]) Amitriptyline Hydrochloride 25 MG Oral Tablet Amitript yline HCl 25 MG Amitriptyline HCl 25 MG 12/06/2019 12:00:00 AM EDT active Amitriptyline HCl 25 MG eCW1 ([facility]) Amitriptyline Hydrochloride 25 MG Oral Tablet Amitript yline HCl 25 MG Amitriptyline HCl 25 MG 12/06/2019 12:00:00 AM EDT active Amitriptyline HCl 25 MG eCW1 ([facility]) Amitriptyline Hydrochloride 25 MG Oral Tablet Amitript yline HCl 25 MG Amitriptyline HCl 25 MG 12/06/2019 12:00:00 AM EDT active Amitriptyline HCl 25 MG eCW1 ([facility]) Botox 200 Units- I Vial 11/27/2019 12:00:00 AM EDT completed MEDENT ([facility] [place]) Medication administered onsite Botox 50 Units For Waste For 200 Units JW Modifier 11/27/2019 12:00:00 AM EDT completed MEDENT ([facility] [place]) Medication administered onsite Ciprofloxacin 250 MG Oral Tablet Ciprofloxacin HCL 11/27/2019 12:00 :00 AM EDT ORAL completed [facility] Alprazolam 1 MG Oral Tablet Alprazolam 10/11/2019 12:00:00 AM EDT ORAL completed MEDENT ([facility]) cefdinir 300 MG Oral Capsule cefdinir 300 mg capsule cefdinir 30 0 mg capsule completed cefdinir 300 M G Oral Capsule MARILIA ([facility]) Methylprednisolone 4 MG Oral Tablet methylprednisolone 4 mg tablet 1 tab daily methylprednisolone 4 mg tablet 1 tab daily completed methylprednisolone 4 MG Oral Tablet MARILIA ([facility]) Doxycycline Monohydrate 100 MG Oral Caps ule doxycycline monohydrate 100 mg capsule TAKE ONE CAPSULE BY MOUTH TWICE DAILY FOR SEVEN DAYS doxycycline monohydrate 100 mg capsule TAKE ONE CAPSULE BY MOUTH TWICE DAILY FOR SEVEN DAYS completed doxycycline mo nohydrate 100 MG Oral Capsule MARILIA ([facility]) cefdinir 300 MG Oral Capsule cefdinir 300 mg capsule cefdinir 30 0 mg capsule completed cefdinir 300 M G Oral Capsule MARILIA ([facility]) Amoxicillin 500 MG / Clavulanate 125 MG Oral Tablet amoxicillin 500 mg-potassium clavulanate 125 mg tablet TAKE ONE TABLET BY MOUTH EVERY TWELVE HOURS amoxicillin 500 mg-potassium clavulanate 125 mg tablet TAKE ONE TABLET BY MOUTH EVERY TWELVE HOURS completed amoxicillin 500 MG / clavulanate 125 MG Oral Tablet MARILIA ([facility]) 0.3 ML Enoxaparin sodium 100 MG/ML Prefi lled Syringe enoxaparin 30 mg/0.3 mL subcutaneous syringe INJECT 0.3 MILLILITERS SUBCUTANEOUSLY EVERY 12 HOURS FOR TWO WEEKS enoxaparin 30 mg/0.3 mL subcutaneous syr travis INJECT 0.3 MILLILITERS SUBCUTANEOUSLY EVERY 12 HOURS FOR TWO WEEKS completed 0.3 ML enoxaparin sodium 100 MG/ML Prefilled Syringe MARILIA ([facility]) Methylprednisolone 4 MG Oral Tablet methylprednisolone 4 mg tablet 1 tab daily methylprednisolone 4 mg tablet 1 tab daily completed methylprednisolone 4 MG Oral Tablet MARILIA ([facility]) tramadol hydrochloride 50 MG Oral Tablet tramadol 50 mg tablet TAKE ONE TABLET BY MOUTH EVERY 6 HOURS NEEDED FOR PAIN MAX DAILY DOSE FOUR TABLETS tramadol 50 mg tablet TAKE ONE TABLET BY MOUTH EVERY 6 HOURS NEEDED FOR PAIN MAX DAILY DOSE FOUR TABLETS completed tramadol hydrochloride 50 MG Oral Tablet MARILIA ([facility]) Oxycodone Hydrochloride 5 MG Oral Tablet oxycodone 5 mg tablet TAKE 1 TO 2 TABLETS BY MOUTH EVERY FOUR HOURS NEEDED FOR PAIN MAX DAILY DOSE 12 CAPSULES oxycodone 5 mg tablet TAKE 1 TO 2 TABLETS BY MOUTH EVERY FOUR HOURS NEEDED FOR PAIN MAX DAILY DOSE 12 CAPSULES co mpleted oxycodone hydrochloride 5 MG Oral Tablet MARILIA ([facility]) Prednisone 20 MG Oral Tablet prednisone 20 mg tablet TAKE ONE TABLET BY MOUTH ONCE DAILY FOR FIVE DAYS prednisone 20 mg tablet TAKE ONE TABLET BY MOUTH ONCE DAILY FOR FIVE DAYS completed pr ednisone 20 MG Oral Tablet MARILIA ([facility]) glimepiride 1 MG Oral Tablet glimepiride 1 mg tablet glimepiride 1 mg tablet completed glimepiride 1 MG Oral Tablet [facility]ILIA ([facility]) Alprazolam 1 MG Oral Tablet alprazolam 1 mg tablet alprazolam 1 mg ta blet completed alprazolam 1 MG Oral Tablet MARILIA ([facility]) Alprazolam 1 MG Oral Tablet alprazolam 1 mg tablet alprazolam 1 mg ta blet completed alprazolam 1 MG Oral Tablet MARILIA ([facility]) 0.3 ML Enoxaparin sodium 100 MG/ML Prefi lled Syringe enoxaparin 30 mg/0.3 mL subcutaneous syringe INJECT 0.3 MILLILITERS SUBCUTANEOUSLY EVERY 12 HOURS FOR TWO WEEKS enoxaparin 30 mg/0.3 mL subcutaneous syr travis INJECT 0.3 MILLILITERS SUBCUTANEOUSLY EVERY 12 HOURS FOR TWO WEEKS completed 0.3 ML enoxaparin sodium 100 MG/ML Prefilled Syringe MARILIA ([facility]) Methylprednisolone 2 MG Oral Tablet [Med rol] Medrol 2 mg tablet 1 tablet every other day Medrol 2 mg tablet 1 tablet every other day completed methylprednisolone 2 MG Oral Tablet [Medrol] MARILIA ([facility]) Doxycycline Monohydrate 100 MG Oral Caps ule doxycycline monohydrate 100 mg capsule TAKE ONE CAPSULE BY MOUTH TWICE DAILY FOR SEVEN DAYS doxycycline monohydrate 100 mg capsule TAKE ONE CAPSULE BY MOUTH TWICE DAILY FOR SEVEN DAYS completed doxycycline mo nohydrate 100 MG Oral Capsule MARILIA ([facility]) Prednisone 20 MG Oral Tablet prednisone 20 mg tablet TAKE ONE TABLET BY MOUTH ONCE DAILY FOR FIVE DAYS prednisone 20 mg tablet TAKE ONE TABLET BY MOUTH ONCE DAILY FOR FIVE DAYS completed pr ednisone 20 MG Oral Tablet [facility] ([facility]) Amoxicillin 500 MG / Clavulanate 125 MG Oral Tablet amoxicillin 500 mg-potassium clavulanate 125 mg tablet TAKE ONE TABLET BY MOUTH EVERY TWELVE HOURS amoxicillin 500 mg-potassium clavulanate 125 mg tablet TAKE ONE TABLET BY MOUTH EVERY TWELVE HOURS completed amoxicillin 500 MG / clavulanate 125 MG Oral Tablet [facility] ([facility]) Alprazolam 1 MG Oral Tablet alprazolam 1 mg tablet alprazolam 1 mg ta blet completed alprazolam 1 MG Oral Tablet [facility] ([facility]) 0.3 ML Enoxaparin sodium 100 MG/ML Prefi lled Syringe enoxaparin 30 mg/0.3 mL subcutaneous syringe INJECT 0.3 MILLILITERS SUBCUTANEOUSLY EVERY 12 HOURS FOR TWO WEEKS enoxaparin 30 mg/0.3 mL subcutaneous syr travis INJECT 0.3 MILLILITERS SUBCUTANEOUSLY EVERY 12 HOURS FOR TWO WEEKS completed 0.3 ML enoxaparin sodium 100 MG/ML Prefilled Syringe [facility] ([facility]) Prednisone 20 MG Oral Tablet prednisone 20 mg tablet TAKE ONE TABLET BY MOUTH ONCE DAILY FOR FIVE DAYS prednisone 20 mg tablet TAKE ONE TABLET BY MOUTH ONCE DAILY FOR FIVE DAYS completed pr ednisone 20 MG Oral Tablet [facility] ([facility]) 0.3 ML Enoxaparin sodium 100 MG/ML Prefi lled Syringe enoxaparin 30 mg/0.3 mL subcutaneous syringe INJECT 0.3 MILLILITERS SUBCUTANEOUSLY EVERY 12 HOURS FOR TWO WEEKS enoxaparin 30 mg/0.3 mL subcutaneous syr travis INJECT 0.3 MILLILITERS SUBCUTANEOUSLY EVERY 12 HOURS FOR TWO WEEKS completed 0.3 ML enoxaparin sodium 100 MG/ML Prefilled Syringe [facility] ([facility]) 0.3 ML Enoxaparin sodium 100 MG/ML Prefi lled Syringe enoxaparin 30 mg/0.3 mL subcutaneous syringe INJECT 0.3 MILLILITERS SUBCUTANEOUSLY EVERY 12 HOURS FOR TWO WEEKS enoxaparin 30 mg/0.3 mL subcutaneous syr travis INJECT 0.3 MILLILITERS SUBCUTANEOUSLY EVERY 12 HOURS FOR TWO WEEKS completed 0.3 ML enoxaparin sodium 100 MG/ML Prefilled Syringe [facility] ([facility]) Amoxicillin 500 MG / Clavulanate 125 MG Oral Tablet amoxicillin 500 mg-potassium clavulanate 125 mg tablet TAKE ONE TABLET BY MOUTH EVERY TWELVE HOURS amoxicillin 500 mg-potassium clavulanate 125 mg tablet TAKE ONE TABLET BY MOUTH EVERY TWELVE HOURS completed amoxicillin 500 MG / clavulanate 125 MG Oral Tablet [facility] ([facility]) Doxycycline Monohydrate 100 MG Oral Caps ule doxycycline monohydrate 100 mg capsule TAKE ONE CAPSULE BY MOUTH TWICE DAILY FOR SEVEN DAYS doxycycline monohydrate 100 mg capsule TAKE ONE CAPSULE BY MOUTH TWICE DAILY FOR SEVEN DAYS completed doxycycline mo nohydrate 100 MG Oral Capsule [facility] ([facility]) Acetaminophen 325 MG / Oxycodone Hydroch loride 5 MG Oral Tablet oxycodone- acetaminophen 5 mg-325 mg tablet oxycodone-acetaminophen 5 mg-325 mg tablet completed acetaminop hen 325 MG / oxycodone hydrochloride 5 MG Oral Tablet [facility] ([facility]) glimepiride 1 MG Oral Tablet glimepiride 1 mg tablet glimepiride 1 mg tablet completed glimepiride 1 MG Oral Tablet [facility] ([facility]) Estradiol 0.1 MG/ML Vaginal Cream estradiol 0.01% (0.1 mg/gram) vaginal cream estradiol 0.01% (0.1 mg/gram) vaginal cream completed estradiol 0.1 MG/ML Vaginal Cream [facility] ([facility]) Prednisone 20 MG Oral Tablet prednisone 20 mg tablet TAKE ONE TABLET BY MOUTH ONCE DAILY FOR FIVE DAYS prednisone 20 mg tablet TAKE ONE TABLET BY MOUTH ONCE DAILY FOR FIVE DAYS completed pr ednisone 20 MG Oral Tablet [facility] ([facility]) glimepiride 2 MG Oral Tablet glimepiride 2 mg tablet TAKE ONE TABLET BY MOUTH @8AM and TAKE ONE TABLET @8PM glimepiride 2 mg tablet TAKE ONE TABLET BY MOUTH @8AM and TAKE ONE TABLET @8PM complete d glimepiride 2 MG Oral Tablet [facility] ([facility]) Cyclobenzaprine hydrochloride 5 MG Oral Tablet cyclobenzaprine 5 mg tablet TAKE ONE TABLET BY MOUTH @8AM and TAKE ONE TABLET @12PM and TAKE ONE TABLET @8PM cyclobenzaprine 5 mg tablet TAKE ONE TABLET BY MOUTH @8AM and TAKE ONE TABLET @12PM and TAKE ONE TABLET @8PM complet ed cyclobenzaprine hydrochloride 5 MG Oral Tablet [facility] ([facility]) Acetaminophen 325 MG / Oxycodone Hydroch loride 5 MG Oral Tablet oxycodone- acetaminophen 5 mg-325 mg tablet oxycodone-acetaminophen 5 mg-325 mg tablet completed acetaminop hen 325 MG / oxycodone hydrochloride 5 MG Oral Tablet [facility] ([facility]) tramadol hydrochloride 50 MG Oral Tablet tramadol 50 mg tablet TAKE ONE TABLET BY MOUTH EVERY 6 HOURS NEEDED FOR PAIN MAX DAILY DOSE FOUR TABLETS tramadol 50 mg tablet TAKE ONE TABLET BY MOUTH EVERY 6 HOURS NEEDED FOR PAIN MAX DAILY DOSE FOUR TABLETS completed tramadol hydrochloride 50 MG Oral Tablet [facility] ([facility]) Estradiol 0.1 MG/ML Vaginal Cream estradiol 0.01% (0.1 mg/gram) vaginal cream estradiol 0.01% (0.1 mg/gram) vaginal cream completed estradiol 0.1 MG/ML Vaginal Cream [facility] ([facility]) Estradiol 0.1 MG/ML Vaginal Cream estradiol 0.01% (0.1 mg/gram) vaginal cream estradiol 0.01% (0.1 mg/gram) vaginal cream completed estradiol 0.1 MG/ML Vaginal Cream [facility] ([facility]) Prednisone 20 MG Oral Tablet prednisone 20 mg tablet TAKE ONE TABLET BY MOUTH ONCE DAILY FOR FIVE DAYS prednisone 20 mg tablet TAKE ONE TABLET BY MOUTH ONCE DAILY FOR FIVE DAYS completed pr ednisone 20 MG Oral Tablet [facility] ([facility]) Doxycycline Monohydrate 100 MG Oral Caps ule doxycycline monohydrate 100 mg capsule TAKE ONE CAPSULE BY MOUTH TWICE DAILY FOR SEVEN DAYS doxycycline monohydrate 100 mg capsule TAKE ONE CAPSULE BY MOUTH TWICE DAILY FOR SEVEN DAYS completed doxycycline mo nohydrate 100 MG Oral Capsule [facility] ([facility]) Methylprednisolone 4 MG Oral Tablet methylprednisolone 4 mg tablet 1 tab daily methylprednisolone 4 mg tablet 1 tab daily completed methylprednisolone 4 MG Oral Tablet [facility] ([facility]) Ciprofloxacin 250 MG Oral Tablet ciprofl oxacin 250 mg tablet TAKE ONE TABLET BY MOUTH TWICE DAILY FOR 3 DAYS ciprofloxacin 250 mg tablet TAKE ONE TAB LET BY MOUTH TWICE DAILY FOR 3 DAYS completed ciprofloxacin 250 MG Oral Tablet [facility] ([facility]) Methylprednisolone 2 MG Oral Tablet [Med rol] Medrol 2 mg tablet 1 tablet every other day Medrol 2 mg tablet 1 tablet every other day completed methylprednisolone 2 MG Oral Tablet [Medrol] [facility] ([facility]) Amoxicillin 500 MG / Clavulanate 125 MG Oral Tablet amoxicillin 500 mg-potassium clavulanate 125 mg tablet TAKE ONE TABLET BY MOUTH EVERY TWELVE HOURS amoxicillin 500 mg-potassium clavulanate 125 mg tablet TAKE ONE TABLET BY MOUTH EVERY TWELVE HOURS completed amoxicillin 500 MG / clavulanate 125 MG Oral Tablet [facility] ([facility]) cefdinir 300 MG Oral Capsule cefdinir 300 mg capsule cefdinir 30 0 mg capsule completed cefdinir 300 M G Oral Capsule [facility] ([facility]) Doxycycline Monohydrate 100 MG Oral Caps ule doxycycline monohydrate 100 mg capsule TAKE ONE CAPSULE BY MOUTH TWICE DAILY FOR SEVEN DAYS doxycycline monohydrate 100 mg capsule TAKE ONE CAPSULE BY MOUTH TWICE DAILY FOR SEVEN DAYS completed doxycycline mo nohydrate 100 MG Oral Capsule [facility] ([facility]) Prednisone 20 MG Oral Tablet prednisone 20 mg tablet TAKE ONE TABLET BY MOUTH ONCE DAILY FOR FIVE DAYS prednisone 20 mg tablet TAKE ONE TABLET BY MOUTH ONCE DAILY FOR FIVE DAYS completed pr ednisone 20 MG Oral Tablet [facility] ([facility]) Estradiol 0.1 MG/ML Vaginal Cream estradiol 0.01% (0.1 mg/gram) vaginal cream estradiol 0.01% (0.1 mg/gram) vaginal cream completed estradiol 0.1 MG/ML Vaginal Cream [facility] ([facility]) Amoxicillin 500 MG / Clavulanate 125 MG Oral Tablet amoxicillin 500 mg-potassium clavulanate 125 mg tablet TAKE ONE TABLET BY MOUTH EVERY TWELVE HOURS amoxicillin 500 mg-potassium clavulanate 125 mg tablet TAKE ONE TABLET BY MOUTH EVERY TWELVE HOURS completed amoxicillin 500 MG / clavulanate 125 MG Oral Tablet [facility] ([facility]) 0.3 ML Enoxaparin sodium 100 MG/ML Prefi lled Syringe enoxaparin 30 mg/0.3 mL subcutaneous syringe INJECT 0.3 MILLILITERS SUBCUTANEOUSLY EVERY 12 HOURS FOR TWO WEEKS enoxaparin 30 mg/0.3 mL subcutaneous syr travis INJECT 0.3 MILLILITERS SUBCUTANEOUSLY EVERY 12 HOURS FOR TWO WEEKS completed 0.3 ML enoxaparin sodium 100 MG/ML Prefilled Syringe [facility] ([facility]) Doxycycline Monohydrate 100 MG Oral Caps ule doxycycline monohydrate 100 mg capsule TAKE ONE CAPSULE BY MOUTH TWICE DAILY FOR SEVEN DAYS doxycycline monohydrate 100 mg capsule TAKE ONE CAPSULE BY MOUTH TWICE DAILY FOR SEVEN DAYS completed doxycycline mo nohydrate 100 MG Oral Capsule [facility] ([facility]) Methylprednisolone 4 MG Oral Tablet methylprednisolone 4 mg tablet 1 tab daily methylprednisolone 4 mg tablet 1 tab daily completed methylprednisolone 4 MG Oral Tablet [facility] ([facility]) glimepiride 2 MG Oral Tablet glimepiride 2 mg tablet TAKE ONE TABLET BY MOUTH @8AM and TAKE ONE TABLET @8PM glimepiride 2 mg tablet TAKE ONE TABLET BY MOUTH @8AM and TAKE ONE TABLET @8PM complete d glimepiride 2 MG Oral Tablet [facility] ([facility]) Ciprofloxacin 250 MG Oral Tablet ciprofl oxacin 250 mg tablet TAKE ONE TABLET BY MOUTH TWICE DAILY FOR 3 DAYS ciprofloxacin 250 mg tablet TAKE ONE TAB LET BY MOUTH TWICE DAILY FOR 3 DAYS completed ciprofloxacin 250 MG Oral Tablet [facility] ([facility]) Acetaminophen 325 MG / Oxycodone Hydroch loride 5 MG Oral Tablet oxycodone- acetaminophen 5 mg-325 mg tablet oxycodone-acetaminophen 5 mg-325 mg tablet completed acetaminop hen 325 MG / oxycodone hydrochloride 5 MG Oral Tablet [facility] ([facility]) glimepiride 1 MG Oral Tablet glimepiride 1 mg tablet glimepiride 1 mg tablet completed glimepiride 1 MG Oral Tablet [facility] ([facility]) tramadol hydrochloride 50 MG Oral Tablet tramadol 50 mg tablet TAKE ONE TABLET BY MOUTH EVERY 6 HOURS NEEDED FOR PAIN MAX DAILY DOSE FOUR TABLETS tramadol 50 mg tablet TAKE ONE TABLET BY MOUTH EVERY 6 HOURS NEEDED FOR PAIN MAX DAILY DOSE FOUR TABLETS completed tramadol hydrochloride 50 MG Oral Tablet [facility] ([facility]) Oxycodone Hydrochloride 5 MG Oral Tablet oxycodone 5 mg tablet TAKE 1 TO 2 TABLETS BY MOUTH EVERY FOUR HOURS NEEDED FOR PAIN MAX DAILY DOSE 12 CAPSULES oxycodone 5 mg tablet TAKE 1 TO 2 TABLETS BY MOUTH EVERY FOUR HOURS NEEDED FOR PAIN MAX DAILY DOSE 12 CAPSULES co mpleted oxycodone hydrochloride 5 MG Oral Tablet [facility] ([facility]) Oxycodone Hydrochloride 5 MG Oral Tablet oxycodone 5 mg tablet TAKE 1 TO 2 TABLETS BY MOUTH EVERY FOUR HOURS NEEDED FOR PAIN MAX DAILY DOSE 12 CAPSULES oxycodone 5 mg tablet TAKE 1 TO 2 TABLETS BY MOUTH EVERY FOUR HOURS NEEDED FOR PAIN MAX DAILY DOSE 12 CAPSULES co mpleted oxycodone hydrochloride 5 MG Oral Tablet [facility] ([facility]) Methylprednisolone 2 MG Oral Tablet [Med rol] Medrol 2 mg tablet 1 tablet every other day Medrol 2 mg tablet 1 tablet every other day completed methylprednisolone 2 MG Oral Tablet [Medrol] [facility] ([facility]) tramadol hydrochloride 50 MG Oral Tablet tramadol 50 mg tablet TAKE ONE TABLET BY MOUTH EVERY 6 HOURS NEEDED FOR PAIN MAX DAILY DOSE FOUR TABLETS tramadol 50 mg tablet TAKE ONE TABLET BY MOUTH EVERY 6 HOURS NEEDED FOR PAIN MAX DAILY DOSE FOUR TABLETS completed tramadol hydrochloride 50 MG Oral Tablet [facility] ([facility]) Doxycycline Monohydrate 100 MG Oral Caps ule doxycycline monohydrate 100 mg capsule TAKE ONE CAPSULE BY MOUTH TWICE DAILY FOR SEVEN DAYS doxycycline monohydrate 100 mg capsule TAKE ONE CAPSULE BY MOUTH TWICE DAILY FOR SEVEN DAYS completed doxycycline mo nohydrate 100 MG Oral Capsule [facility] ([facility]) Methylprednisolone 2 MG Oral Tablet [Med rol] Medrol 2 mg tablet 1 tablet every other day Medrol 2 mg tablet 1 tablet every other day completed methylprednisolone 2 MG Oral Tablet [Medrol] [facility] ([facility]) Methylprednisolone 4 MG Oral Tablet methylprednisolone 4 mg tablet 1 tab daily methylprednisolone 4 mg tablet 1 tab daily completed methylprednisolone 4 MG Oral Tablet [facility] ([facility]) Acetaminophen 325 MG / Oxycodone Hydroch loride 5 MG Oral Tablet oxycodone- acetaminophen 5 mg-325 mg tablet oxycodone-acetaminophen 5 mg-325 mg tablet completed acetaminop hen 325 MG / oxycodone hydrochloride 5 MG Oral Tablet [facility] ([facility]) Methylprednisolone 2 MG Oral Tablet [Med rol] Medrol 2 mg tablet 1 tablet every other day Medrol 2 mg tablet 1 tablet every other day completed methylprednisolone 2 MG Oral Tablet [Medrol] [facility] ([facility]) tramadol hydrochloride 50 MG Oral Tablet tramadol 50 mg tablet TAKE ONE TABLET BY MOUTH EVERY 6 HOURS NEEDED FOR PAIN MAX DAILY DOSE FOUR TABLETS tramadol 50 mg tablet TAKE ONE TABLET BY MOUTH EVERY 6 HOURS NEEDED FOR PAIN MAX DAILY DOSE FOUR TABLETS completed tramadol hydrochloride 50 MG Oral Tablet [facility] ([facility]) Alprazolam 1 MG Oral Tablet alprazolam 1 mg tablet alprazolam 1 mg ta blet completed alprazolam 1 MG Oral Tablet [facility] ([facility]) Amoxicillin 500 MG / Clavulanate 125 MG Oral Tablet amoxicillin 500 mg-potassium clavulanate 125 mg tablet TAKE ONE TABLET BY MOUTH EVERY TWELVE HOURS amoxicillin 500 mg-potassium clavulanate 125 mg tablet TAKE ONE TABLET BY MOUTH EVERY TWELVE HOURS completed amoxicillin 500 MG / clavulanate 125 MG Oral Tablet [facility] ([facility]) Estradiol 0.1 MG/ML Vaginal Cream estradiol 0.01% (0.1 mg/gram) vaginal cream estradiol 0.01% (0.1 mg/gram) vaginal cream completed estradiol 0.1 MG/ML Vaginal Cream [facility] ([facility]) Prednisone 20 MG Oral Tablet prednisone 20 mg tablet TAKE ONE TABLET BY MOUTH ONCE DAILY FOR FIVE DAYS prednisone 20 mg tablet TAKE ONE TABLET BY MOUTH ONCE DAILY FOR FIVE DAYS completed pr ednisone 20 MG Oral Tablet [facility] ([facility]) Acetaminophen 325 MG / Oxycodone Hydroch loride 5 MG Oral Tablet oxycodone- acetaminophen 5 mg-325 mg tablet oxycodone-acetaminophen 5 mg-325 mg tablet completed acetaminop hen 325 MG / oxycodone hydrochloride 5 MG Oral Tablet [facility] ([facility]) 0.3 ML Enoxaparin sodium 100 MG/ML Prefi lled Syringe enoxaparin 30 mg/0.3 mL subcutaneous syringe INJECT 0.3 MILLILITERS SUBCUTANEOUSLY EVERY 12 HOURS FOR TWO WEEKS enoxaparin 30 mg/0.3 mL subcutaneous syr travis INJECT 0.3 MILLILITERS SUBCUTANEOUSLY EVERY 12 HOURS FOR TWO WEEKS completed 0.3 ML enoxaparin sodium 100 MG/ML Prefilled Syringe [facility] ([facility]) Amoxicillin 500 MG / Clavulanate 125 MG Oral Tablet amoxicillin 500 mg-potassium clavulanate 125 mg tablet TAKE ONE TABLET BY MOUTH EVERY TWELVE HOURS amoxicillin 500 mg-potassium clavulanate 125 mg tablet TAKE ONE TABLET BY MOUTH EVERY TWELVE HOURS completed amoxicillin 500 MG / clavulanate 125 MG Oral Tablet [facility] ([facility]) Methylprednisolone 2 MG Oral Tablet [Med rol] Medrol 2 mg tablet 1 tablet every other day Medrol 2 mg tablet 1 tablet every other day completed methylprednisolone 2 MG Oral Tablet [Medrol] [facility] ([facility]) Cyclobenzaprine hydrochloride 5 MG Oral Tablet cyclobenzaprine 5 mg tablet TAKE ONE TABLET BY MOUTH @8AM and TAKE ONE TABLET @12PM and TAKE ONE TABLET @8PM cyclobenzaprine 5 mg tablet TAKE ONE TABLET BY MOUTH @8AM and TAKE ONE TABLET @12PM and TAKE ONE TABLET @8PM complet ed cyclobenzaprine hydrochloride 5 MG Oral Tablet [facility] ([facility]) Acetaminophen 325 MG / Oxycodone Hydroch loride 5 MG Oral Tablet oxycodone- acetaminophen 5 mg-325 mg tablet oxycodone-acetaminophen 5 mg-325 mg tablet completed acetaminop hen 325 MG / oxycodone hydrochloride 5 MG Oral Tablet [facility] ([facility]) Ciprofloxacin 250 MG Oral Tablet ciprofl oxacin 250 mg tablet TAKE ONE TABLET BY MOUTH TWICE DAILY FOR 3 DAYS ciprofloxacin 250 mg tablet TAKE ONE TAB LET BY MOUTH TWICE DAILY FOR 3 DAYS completed ciprofloxacin 250 MG Oral Tablet [facility] ([facility]) Oxycodone Hydrochloride 5 MG Oral Tablet oxycodone 5 mg tablet TAKE 1 TO 2 TABLETS BY MOUTH EVERY FOUR HOURS NEEDED FOR PAIN MAX DAILY DOSE 12 CAPSULES oxycodone 5 mg tablet TAKE 1 TO 2 TABLETS BY MOUTH EVERY FOUR HOURS NEEDED FOR PAIN MAX DAILY DOSE 12 CAPSULES co mpleted oxycodone hydrochloride 5 MG Oral Tablet [facility] ([facility]) Ciprofloxacin 250 MG Oral Tablet ciprofl oxacin 250 mg tablet TAKE ONE TABLET BY MOUTH TWICE DAILY FOR 3 DAYS ciprofloxacin 250 mg tablet TAKE ONE TAB LET BY MOUTH TWICE DAILY FOR 3 DAYS completed ciprofloxacin 250 MG Oral Tablet [facility] ([facility]) tramadol hydrochloride 50 MG Oral Tablet tramadol 50 mg tablet TAKE ONE TABLET BY MOUTH EVERY 6 HOURS NEEDED FOR PAIN MAX DAILY DOSE FOUR TABLETS tramadol 50 mg tablet TAKE ONE TABLET BY MOUTH EVERY 6 HOURS NEEDED FOR PAIN MAX DAILY DOSE FOUR TABLETS completed tramadol hydrochloride 50 MG Oral Tablet [facility] ([facility]) Prednisone 20 MG Oral Tablet prednisone 20 mg tablet TAKE ONE TABLET BY MOUTH ONCE DAILY FOR FIVE DAYS prednisone 20 mg tablet TAKE ONE TABLET BY MOUTH ONCE DAILY FOR FIVE DAYS completed pr ednisone 20 MG Oral Tablet [facility] ([facility]) Methylprednisolone 4 MG Oral Tablet methylprednisolone 4 mg tablet 1 tab daily methylprednisolone 4 mg tablet 1 tab daily completed methylprednisolone 4 MG Oral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 [id number]-[id number] ANSI-Medicaid [id number] ANSI-Not a Secondary Insurance [id number]-79p0-v859-a4wzh [id number] [id number]-21o0-o086-a8fci3ncp033 ANSI-Medicaid [id number] ANSI-Not a Secondary Insurance [id number]-10t2-rvl8-16lw3 2ftu8sj [id number]-84c0-mkc6-66lg24ojl3gg ANSI-Medicaid [id number] ANSI-Medicaid [id number] ANSI-Not a Secondary Insurance [id number]-91a5-62k2-1989-2ur0b czk0d6j h6ze3y6n-83o1-67z0-3518-0cp3gdgu7s0x ANSI-Not a Secondary Insurance [id number]-05r0-x79s-1j2u3 80kl796 [id number]-09t8-c94p-[id number] ANSI-Medicaid [id number] ANSI-Not a Secondary Insurance [id number]-296k-3604-2gr7-87nv7 [id number]-256g-[id number] ANSI-Medicaid [id number] ANSI-Medicaid [id number] ANSI-Not a Secondary Insurance [id number]-7j52-080h-77u3-957gb [id number] 6if0siby-5o16-083g-17y9-887yg698zu2d ANSI-Not a Secondary Insurance [id number]-j506-17u4u [id number]-[id number] ANSI-Medicaid [id number] ANSI-Not a Secondary Insurance [id number]-1fqt-5454-x9d1-02203 700ccfb 99tkxz9p-0kub-7138-m5n2-05826199ngas ANSI-Medicaid [id number] ANSI-Not a Secondary Insurance [id number] [id number] ANSI-Medicaid [id number] ANSI-Medicaid [id number] ANSI-Not a Secondary Insurance [id number]-8u77-84od-s656-5a8w7 7r2s536 w5r3e1bz-2s89-77xn-[id number] ANSI-Medicaid [id number] ANSI-Not a Secondary Insurance [id number] [id number] ANSI-Medicaid [id number] ANSI-Not a Secondary Insurance [id number]-h67ls [id number] [id number] Medicaid [facility] Part B [id number] Self [id number] ANSI-Medicaid [id number] ANSI-Not a Secondary Insurance [id number] ANSI-Medicaid [id number] ANSI-Not a Secondary Insurance [id number] ANSI-Not a Secondary Insurance [id number] ANSI-Medicaid [id number] ANSI-Medicaid [id number] Problems, Conditions, and Diagnoses Code Display Name Description Problem Type Effective Dates Data Source(s) N95.2 Postmenopausal atrophic vaginitis N95.2 - Postmenopausal atrophic vaginitis Diagnosis 08/11/2020 11:00:00 PM EDT [facility] R30.0 Dysuria R30.0 - Dysuria Diagnosis 07/14/2020 11:00:00 PM [facility] 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, 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 N31.0 - Uninhibited neuropathic bladder, not elsewhere classified Diagnosis 04/07/2020 09:05:00 PM EST [facility] Z87.440 Personal history of urinary (tract) infe ctions Z87.440 - Personal history of urinary (tract) infections Diagnosis 04/07/2020 09:05:00 PM EST [facility] R35.0 Frequency of micturition R35.0 - Frequency of micturit ion Diagnosis 01/10/2020 11:00:00 PM EST [facility] R31.0 Gross hematuria R31.0 - Gross hematuria Diagnosis 1 11:00:00 PM EDT [facility] R04.0 [id number] Recurrent epistaxis Problem 11/14/2020 12:00 :00 AM EDT eCW1 ([facility]) D50.9 Iron deficiency anemia Anemia, iron deficiency Problem 07/04/2020 12:00:00 AM EDT eC1 ([facility]) K59.00 [id number] Constipation, unspecified constipation ty pe Problem 05/26/2020 12:00:00 AM EDT eCW1 ([facility]) F41.9 [id number] Anxiety Problem 05/12/2020 12:00:00 AM ES T eCW1 ([facility]) Surgeries/Procedures Procedure Description Date Indications Data Source(s) ECG ROUTINE ECG W/LEAST 12 LDS W/I&R 11/14/2020 12:00: 00 AM EDT eCW1 ([facility]) RADIOLOGIC EXAMINATION KNEE 3 VIEWS 10/23/2020 12:00:0 0 [facility] ARTHROCENTESIS ASPIR&/INJECTION MAJOR JT/BURSA 021 12:00:00 [facility] OFFICE OUTPATIENT VISIT 25 MINUTES 10/23/2020 12:00:00 AM EDT [facility] ([facility]) RADIOLOGIC EXAMINATION KNEE 3 VIEWS 10/23/2020 12:00:0 0 AM EDT [facility] ([facility]) OFFICE OUTPATIENT NEW 45 MINUTES 10/15/2020 12:00:00 A M EDT [facility] ([facility]) OFFICE OUTPATIENT VISIT 25 MINUTES 10/08/2020 12:00:00 AM EDT [facility] ([facility]) Spirometry 10/08/2020 12:00:00 AM EDT M EDENT ([facility]) US RETROPERITONEAL REAL TIME W/IMAGE LIMITED 12:00:00 AM EDT [facility] ([facility]) US RETROPERITONEAL REAL TIME W/IMAGE LIMITED 12:00:00 AM EDT [facility] ([facility]) ARTHROCENTESIS ASPIR&/INJECTION MAJOR JT/BURSA 021 12:00:00 AM EDT [facility] ([facility]) Cystourethroscopy,/W Injects For Chemodenervation Of The Leonel dder 07/23/2020 12:00:00 AM EDT [facility] ([facility]) Cystourethroscopy, W/[employer] Cryosurgery Or Laser Garza rg 07/23/2020 12:00:00 AM EDT [facility] ([facility]) INSJ NON-NDWELLG BLADDER CATHETER 07/14/2020 12:00:00 AM EDT [facility] ([facility]) INSJ NON-NDWELLG BLADDER CATHETER 04/07/2020 12:00:00 AM EST [facility] ([facility]) INSJ NON-NDWELLG BLADDER CATHETER 04/07/2020 12:00:00 AM EST [facility] ([facility]) ARTHROCENTESIS ASPIR&/INJECTION MAJOR JT/BURSA 021 12:00:00 AM EST [facility] ([facility] ) INSJ NON-NDWELLG BLADDER CATHETER 01/10/2020 12:00:00 AM EST [facility] ([facility]) BLDR IRRIGATION SMPL LAVAGE&/INSTLJ 12/11/2019 12:00:0 0 AM EDT [facility] ([facility]) CYSTOURETHROSCOPY 12/11/2019 12:00:00 AM EDT [facility] ([facility]) Cystourethroscopy,/W Injects For Chemodenervation Of The Leonel dder 11/27/2019 12:00:00 AM EDT [facility] ([facility]) Cystourethroscopy, W/[employer] Cryosurgery Or Laser Garza rg 11/27/2019 12:00:00 AM EDT [facility] ([facility]) Results ID Date Data Source [id number] 12/24/2020 12:00:00 AM EDT [facility] Name Value Range Interpretation Code Description Data Tashia rce(s) Supporting Document(s) SARS-CoV2 Rapid Antigen Negative [facility] This lab was ordered by [facility] and reported by [facility]. ID Date Data Source [id number] 11/26/2020 11:30:00 AM EDT [facility] Name Value Range Interpretation Code Description Data Tashia rce(s) Supporting Document(s) SARS-CoV-2 (COVID-19) RNA [Presence] in Respiratory specimen by PHANI with probe detection Not Detected [facility] This lab was ordered by [facility] and reported by [employer] ID Date Data Source Comprehensive Metabolic Profile (CMP) 11/14/2020 12:00:00 AM EDT eCW1 ([facility]) Name Value Range Interpretation Code Description Data Tashia rce(s) Supporting Document(s) 64 70-100 GLUCOSE, FASTING eCW1 ([facility]) 15 7-18 BLOOD UREA NITROGEN eCW1 ([facility]) 0.72 0.55-1.30 CREATININE FOR GFR eCW1 ([facility]) > 60.0 >45 GLOMERULAR FILTRATION RATE eCW 1 ([facility]) 137 136-145 SODIUM LEVEL eCW1 ([facility]) 102 98-107 CHLORIDE LEVEL eCW1 ([facility]) 4.3 3.5-5.1 POTASSIUM SERUM eCW1 ([facility] includes the [facility]) 28 21-32 CARBON DIOXIDE LEVEL eCW1 ([facility]) 8.8 8.8-10.2 CALCIUM LEVEL eCW1 ([facility]) 21 7-37 AST/SGOT eCW1 ([facility]) 30 12-78 ALT/SGPT eCW1 ([facility]) 95 45-117 ALKALINE PHOSPHATASE eCW1 ([facility]) 0.9 0.2-1.0 BILIRUBIN,TOTAL eCW1 (Count includes the [facility]) 6.8 6.4-8.2 TOTAL PROTEIN eCW1 ([facility]) 3.3 3.2-5.2 ALBUMIN eCW1 ([facility]) 0.9 1.2-2.2 ALBUMIN/GLOBULIN RATIO eCW1 ([facility]) ID Date Data Source CBC with Differential 11/14/2020 12:00:00 AM EDT eCW1 ([facility]) Name Value Range Interpretation Code Description Data Tashia rce(s) Supporting Document(s) 8.1 4.0-10.0 WHITE BLOOD COUNT eCW1 ([facility]) 3.63 4.00-5.40 RED BLOOD COUNT eCW1 (Count includes the [facility]) 9.5 12.0-15.5 HEMOGLOBIN eCW1 ([facility]) 86.2 80.0-96.0 MEAN CORPUSCULAR VOLUME e CW1 ([facility]) 31.3 36.0-47.0 HEMATOCRIT eCW1 ([facility]) 30.4 32.0-36.5 MEAN CORPUSCULAR HGB CONC eCW1 ([facility]) 26.2 27.0-33.0 MEAN CORPUSCULAR HEMOGLOB IN eCW1 ([facility]) 15.8 11.5-14.5 RED CELL DISTRIBUTION WID TH eCW1 ([facility]) 342 150-450 PLATELET COUNT, AUTOMATED eCW1 ([facility]) 51.9 36.0-66.0 NEUTROPHILS % eCW1 ([facility]) 5.0 2.0-8.0 MONO % eCW1 ([facility]) 39.4 24.0-44.0 LYMPH % eCW1 ([facility]) 0.9 0.0-1.0 BASO % eCW1 ([facility]) 2.4 0.0-3.0 EOS % eCW1 ([facility]) 4.2 1.5-8.5 NEUTROPHILS # eCW1 ([facility]) 3.2 1.5-5.0 LYMPH # eCW1 ([facility]) 0.2 0.0-0.5 EOS # eCW1 ([facility]) 0.4 0.0-0.8 MONO # eCW1 ([facility]) 0.1 0.0-0.2 BASO # eCW1 ([facility]) ID Date Data Source PT & APTT 11/14/2020 12:00:00 AM EDT eCW1 ([facility]) Name Value Range Interpretation Code Description Data Tashia rce(s) Supporting Document(s) 12.5 12.7-14.5 PROTHROMBIN TIME eCW1 ([facility]) 0.89 INR eCW1 ([facility]) 27.5 25.9-37.0 PARTIAL THROMBOPLASTIN TI ME eCW1 ([facility]) ID Date Data Source NT-PRO BNP 11/14/2020 12:00:00 AM EDT eCW1 ([facility]) Name Value Range Interpretation Code Description Data Tashia rce(s) Supporting Document(s) 57 <125 NT-PRO BNP eCW1 ([facility]) ID Date Data Source FREE T4 & TSH PANEL 11/14/2020 12:00:00 AM EDT eCW1 ([facility]) Name Value Range Interpretation Code Description Data Tashia rce(s) Supporting Document(s) 1.320 0.358-3.740 THYROID STIMULATING HORM ONE eCW1 ([facility]) 1.10 0.76-1.46 FREE T4 eCW1 ([facility]) ID Date Data Source FERRITIN 11/14/2020 12:00:00 AM EDT eCW1 ([facility]) Name Value Range Interpretation Code Description Data Tashia rce(s) Supporting Document(s) 8 8-252 FERRITIN eCW1 ([facility]) ID Date Data Source URINE CULTURE 11/14/2020 12:00:00 AM EDT eCW1 ([facility]) Name Value Range Interpretation Code Description Data Tashia rce(s) Supporting Document(s) Laboratory studies (set) URINE CULTU RE eCW1 ([facility]) ID Date Data Source MAGNESIUM LEVEL 11/14/2020 12:00:00 AM EDT eCW1 ([facility]) Name Value Range Interpretation Code Description Data Tashia rce(s) Supporting Document(s) 2.0 1.8-2.4 MAGNESIUM LEVEL eCW1 (Count includes the [facility]) ID Date Data Source UA URINALYSIS 11/14/2020 12:00:00 AM EDT eCW1 ([facility]) Name Value Range Interpretation Code Description Data Tashia rce(s) Supporting Document(s) Laboratory studies (set) UA URINALYS IS eCW1 ([facility]) ID Date Data Source [id number] 10/21/2020 04:25:00 PM EDT [facility] ([facility], ) Name Value Range Interpretation Code Description Data Tashia rce(s) Supporting Document(s) White Blood Count 7.7 10 4.0-10.0 Normal (applies to non-numeri c results) [facility] ([facility], ) Red Blood Count 4.17 10 4.00-5.40 Normal (applies to non-numeric results) [facility] ([facility], ) Hemoglobin 11.0 g/dL 12.0-15.5 Below low normal [facility] ( [facility], ) Hematocrit 35.5 % 36.0-47.0 Below low normal [facility] Mean Corpuscular Hemoglobin 26.4 pg 27.0-33.0 Below low normal [facility] ([facility]) Mean Corpuscular Volume 85.1 fl 80.0-96.0 Normal ( applies to non-numeric results) [facility] ([facility]) Mean Corpuscular HGB Conc 31.0 g/dL 32.0-36.5 Below low normal [facility] ([facility]) Red Cell Distribution Width 15.9 % 11.5-14.5 Above high normal [facility] ([facility]) Platelet Count, Automated 346 10 150-450 Normal (applies to non-numeric results) [facility] ([facility]) Nucleated Red Blood Cell % 0.0 % 0-0 Normal (applies to n on-numeric results) [facility] ([facility]) 11/11/20 (TueNov 11) 09:16 AM MICHAEL ABERNATHY Continues to have anemia. Will further evaluate. ID Date Data Source [id number] 10/21/2020 04:25:00 PM EDT [facility] ([facility]) Name Value Range Interpretation Code Description Data Tashia rce(s) Supporting Document(s) Iron (Fe) 35 ug/dL 50-170 Below low normal [facility] ( [facility]) Total Iron Binding Capacity 487 ug/dL 250-450 Above high normal [facility] ([facility]) Percent Saturation 7.2 % 13.2-45.0 Below low normal [facility] ([facility]) 11/11/20 (TueNov 11) 09:16 AM MICHAEL ABERNATHY Iron deficiency noted. Continue to take iron supplement as directed. Will further evaluate. ID Date Data Source [id number] 10/21/2020 04:25:00 PM EDT [facility] ([facility]) Name Value Range Interpretation Code Description Data Tashia rce(s) Supporting Document(s) Urea nitrogen [Mass/volume] in Serum or Plasma 14 mg/dL 7 -18 Normal (applies to non-numeric results) [facility]) ID Date Data Source [id number] 10/21/2020 04:25:00 PM EDT [facility] ([facility]) Name Value Range Interpretation Code Description Data Tashia rce(s) Supporting Document(s) Creatinine For GFR 0.72 mg/dL 0.55-1.30 Normal (applies to non -numeric results) [facility] ([facility], ) Glomerular Filtration Rate Laboratory test result Normal (applies to non- numeric results) [facility] ([facility]) <content>Units are mL/min/1.73 m2</content>
<content></content>
<content>Chronic Kidney Disease Staging per NKF:</content>
<content></content>
<content>Stage I & II GFR >=60 Normal to Mildly Decreased</content>
<content>Stage III GFR 30- 59 Moderately Decreased</content>
<content>Stage IV GFR 15-29 Severely Decreased</content>
<content>Stage V GFR <15 Very Little GFR Left</content>
<content>ESRD GFR <15 on NURSING ADMIN</content>
<content></content> ID Date Data Source [id number] 10/20/2020 12:00:00 AM EDT MAR[facility] ([facility]) Name Value Range Interpretation Code Description Data Tashia rce(s) Supporting Document(s) ID Date Data Source [id number] 10/20/2020 12:00:00 AM EDT [facility] Name Value Range Interpretation Code Description Data Tashia rce(s) Supporting Document(s) SARS-CoV-2 NEGATIVE [facility] This lab was ordered by [facility] and reported by [employer]. ID Date Data Source [id number] 10/20/2020 12:00:00 AM EDT [facility] ([facility]) Name Value Range Interpretation Code Description Data Tashia rce(s) Supporting Document(s) SARS-CoV-2 (COVID-19) RNA [Presence] in Respiratory specimen by PHANI with probe detection negative negative Sars-cov-2 MARILIA ([facility]) ID Date Data Source [id number] 10/08/2020 09:54:00 AM EDT [facility] ([facility], ) Name Value Range Interpretation Code Description Data Tashia rce(s) Supporting Document(s) PDFReport Laboratory test result [facility] ([facility], ) FVC-Pred 3.44 L [facility] ([facility]) FVC-%Pred-Pre 69 L [facility] ([facility]) FVC-Pre 2.38 L [facility] ([facility]) Fev1-Pred 2.64 L [facility] ([facility]) FVC-LLN 2.70 L [facility] ([facility]) Fev1-Pre 1.77 L [facility] ([facility]) Fev1-%Pred-Pre 67 L [facility] ([facility]) Fev1-LLN 2.01 L [facility] ([facility]) Fev6-Pre 2.35 L [facility] ([facility]) Fev6-Pred 3.31 L [facility] ([facility]) Fev6-LLN 2.59 L [facility] ([facility]) Fev6-%Pred-Pre 71 L [facility] ([facility]) Omh7eyj-Tteb 77 % [facility] ([facility]) Pds7vnu-Dps 74 % [facility] ([facility]) Esn9mag-LBN 67 % [facility] ([facility]) Iwj4qad-%Pred-Pre 96 % [facility] ([facility]) Zti7dql-%Pred-Pre 102 % [facility] ([facility]) Xlq2igo-Zlu 99 % [facility] ([facility]) Jax5qux-Dkwx 96 % [facility] ([facility]) FEFMax-Pre 5.14 L/E/sec [facility] ([facility]) FEFMax-Pred 6.37 L/E/sec [facility] ([facility]) FEFMax-%Pred-Pre 80 L/E/sec [facility] ([facility], ) FEFMax-LLN 4.55 L/E/sec [facility] ([facility]) Gcf7622-%Pred-Pre 56 L/E/sec [facility] ([facility]) Rlf9557-Hpnx 2.29 L/E/sec [facility] ([facility]) Ixi4573-Rik 1.30 L/E/sec [facility] ([facility]) ExpTime-Pre 7.83 sec [facility] ([facility]) Hql5069-YSH 0.97 L/E/sec [facility] ([facility]) Doe0fot2-Kjwq 80 % [facility] ([facility]) Ylw0dkc6-Ijy 75 % [facility] ([facility]) Pci6iyl2-%Pred-Pre 93 % [facility] ([facility]) Jaz7shs6-YAN 71 % [facility] ([facility]) ID Date Data Source [id number] 08/11/2020 04:02:00 PM EDT [facility] ([facility]) Name Value Range Interpretation Code Description Data Tashia rce(s) Supporting Document(s) Linda sp rRNA [Presence] in Vaginal fluid by DNA probe Lab oratory test result Abnormal (applies to non-numeric results) [facility] ([facility]) Gardnerella By Dna Probe Laboratory test result [facility] ([facility]) Trichomonas vaginalis rRNA [Presence] in Genital speci men by DNA probe Laboratory test result [facility] ([facility]) TESTING PERFORMED BY NUCLEIC ACID HYBRID IZATION ID Date Data Source [id number] 08/11/2020 04:02:00 PM EDT [facility] ([facility]) Name Value Range Interpretation Code Description Data Tashia rce(s) Supporting Document(s) Bacteria identified in Vaginal fluid by Aerobe culture Laborator y test result [facility] ([facility]) ID Date Data Source [id number] 08/12/2020 12:21:00 PM EDT [facility] Name Value Range Interpretation Code Description Data Tashia rce(s) Supporting Document(s) LINDA BY DNA PROBE POSITIVE NEGATIVE [facility] [place] [facility] GARDNERELLA BY DNA PROBE NEGATIVE NEGATIVE [facility] TRICHOMONAS BY DNA PROBE NEGATIVE NEGATIVE [facility] TESTING PERFORMED BY NUCLEIC ACID HYBRI DIZATION ID Date Data Source [id number] 08/11/2020 03:39:00 PM EDT [facility] ([facility]) Name Value Range Interpretation Code Description Data Tashia rce(s) Supporting Document(s) Protein [Presence] in Urine by Test strip 30 mg/dL [facility] ([facility]) Glucose [Presence] in Urine 100 mg/dL [facility] ([facility]) Ua Nitrite Laboratory test result [facility] ([facility]) Ua Leuko Laboratory test result [facility] ([facility]) Color of Urine Laboratory test result [facility] ([facility]) Blood [Presence] in Urine by Visual Laboratory test result [facility] ([facility]) Ketones [Presence] in Urine by Test strip Laboratory test result [facility] ([facility]) Clarity of Urine Laboratory test result [facility] ([facility]) pH of Urine by Test strip 7.0 5.0-7.5 [facility] ([facility]) Ua Specific [place] 1.020 1.003-1.030 MEDE NT ([facility]) Urobilinogen [Mass/volume] in Urine by Test strip 0.2 E.U./dL 0.0-1.0 [facility] ([facility]) Bilirubin.total [Presence] in Urine by Test strip Laboratory test res ult [facility] ([facility]) ID Date Data Source [id number] 08/11/2020 12:00:00 AM EDT [facility]IL[facility] ([facility]) Name Value Range Interpretation Code Description Data Tashia rce(s) Supporting Document(s) ID Date Data Source [id number] 08/11/2020 12:00:00 AM EDT [facility] Name Value Range Interpretation Code Description Data Tashia rce(s) Supporting Document(s) SARS-CoV-2 NEGATIVE [facility] This lab was ordered by [facility] and reported by [employer]. ID Date Data Source [id number] 08/11/2020 12:00:00 AM EDT [facility] ([facility]) Name Value Range Interpretation Code Description Data Tashia rce(s) Supporting Document(s) ID Date Data Source [id number] 08/11/2020 12:00:00 AM EDT [facility] ([facility]) Name Value Range Interpretation Code Description Data Tashia rce(s) Supporting Document(s) ID Date Data Source [id number] 07/23/2020 09:44:00 AM EDT [facility] ([facility] Name Value Range Interpretation Code Description Data Tashia rce(s) Supporting Document(s) Glucose [Presence] in Urine Laboratory test result [facility] ([facility]) Ua Nitrite Laboratory test result [facility] ([facility]) Protein [Presence] in Urine by Test strip Laboratory test result [facility] ([facility]) Ua Leuko Laboratory test result [facility] ([facility]) Blood [Presence] in Urine by Visual Laboratory test result [facility] ([facility]) Ketones [Presence] in Urine by Test strip Laboratory test result [facility] ([facility]) Color of Urine Laboratory test result [facility] ([facility]) Ua Specific [place] 1.025 1.003-1.030 MED[facility] NT ([facility]) Clarity of Urine Laboratory test result [facility] ([facility]) pH of Urine by Test strip 7.0 5.0-7.5 [facility] ([facility]) Bilirubin.total [Presence] in Urine by Test strip Laboratory test res ult [facility] ([facility]) Urobilinogen [Mass/volume] in Urine by Test strip 0.2 E.U./dL 0.0-1.0 [facility] ([facility]) ID Date Data Source [id number] 07/14/2020 03:26:00 PM EDT [facility] ([facility]) Name Value Range Interpretation Code Description Data Tashia rce(s) Supporting Document(s) Bacteria identified in Urine by Culture Laboratory test result [facility] ([facility]) <content> --------</content>
<content>Run: 07/16/20 0832 INTERFACED REPORT</content>
<content> </content>
<content>Name: Cassie Jiang Age/Sex: 65/F Location: [facility]</content>
<content>Acct: [id number] Unit: [id number] Status: REG REF Room/Bed:</content>
<content>Re07/14/20 Disch: Junior Dr: Monica Bal MD</content>
<content> </content>
<content></content>
<content>Specimen #: [id number] Ordered : 07/14/2012/25/1809</content>
<content>Collected : 07/14/2012/26/1515 By: OFFICE Received: 07/14/2012/25/1809 By: CYNTHIA</content>
<content>Source: URINE CATH [...] REPORT </content>
<content></content> ID Date Data Source [id number] 07/16/2020 08:32:00 AM EDT [facility] Run: 07/16/20 0832 INTERFACED REPORT Name: Cassie Jiang Age/Sex: 65/F Location: [facility] Acct: [id number] Unit: [id number] Status: REG REF Room/Bed: Re07/14/20 Disch: Att Dr: Monica Bal MD Specimen #: [id number] Ordered : 07/14/2012/25/1809 Collected : 07/14/2012/26/1515 By: OFFICE Received: 07/14/2012/25/1809 By: CYNTHIA Source: URINE CATH [...] rce(s) Supporting Document(s) ID Date Data Source [id number] 07/14/2020 03:15:00 PM EDT [facility] ([facility]) Name Value Range Interpretation Code Description Data Tashia rce(s) Supporting Document(s) Glucose [Presence] in Urine Laboratory test result [facility] ([facility]) Ua Nitrite Laboratory test result [facility] ([facility]) Protein [Presence] in Urine by Test strip 30 mg/dL [facility] ([facility]) Blood [Presence] in Urine by Visual Laboratory test result [facility] ([facility]) Ua Leuko Laboratory test result [facility] ([facility]) Clarity of Urine Laboratory test result [facility] ([facility]) Ketones [Presence] in Urine by Test strip Laboratory test result [facility] ([facility]) Color of Urine Laboratory test result [facility] ([facility]) pH of Urine by Test strip 5.0 5.0-7.5 [facility] ([facility]) Ua Specific [place] Laboratory test result 1.003-1.030 [facility] ([facility]) Bilirubin.total [Presence] in Urine by Test strip Laboratory test res ult [facility] ([facility]) Urobilinogen [Mass/volume] in Urine by Test strip 0.2 E.U./dL 0.0-1.0 [facility] ([facility]) ID Date Data Source [id number] 07/14/2020 03:07:00 PM EDT [facility] ([facility]) Name Value Range Interpretation Code Description Data Tashia rce(s) Supporting Document(s) Glucose [Presence] in Urine Laboratory test result [facility] ([facility]) Protein [Presence] in Urine by Test strip 30 mg/dL [facility] ([facility]) Ua Nitrite Laboratory test result [facility] ([facility]) Ua Leuko Laboratory test result [facility] ([facility]) Blood [Presence] in Urine by Visual Laboratory test result [facility] ([facility]) Color of Urine Laboratory test result [facility] ([facility]) Clarity of Urine Laboratory test result [facility] ([facility]) Ketones [Presence] in Urine by Test strip Laboratory test result [facility] ([facility]) pH of Urine by Test strip 5.0 5.0-7.5 [facility] ([facility]) Ua Specific [place] Laboratory test result 1.003-1.030 [facility] ([facility]) Bilirubin.total [Presence] in Urine by Test strip Laboratory test res ult [facility] ([facility]) Urobilinogen [Mass/volume] in Urine by Test strip 0.2 E.U./dL 0.0-1.0 [facility] ([facility]) ID Date Data Source [id number] 07/04/2020 12:00:00 AM EDT [facility] ([facility]) Name Value Range Interpretation Code Description Data Tashia rce(s) Supporting Document(s) Hemoglobin A1c/Hemoglobin.total in Blood 6.6 HEMOGLOBIN A1c [facility] ([facility]) ID Date Data Source LIPID PANEL (CARDIAC RISK) 07/04/2020 12:00:00 AM EDT eC ( [facility]) Name Value Range Interpretation Code Description Data Tashia rce(s) Supporting Document(s) Cholesterol [Moles/volume] in Serum or Plasma 156 <200 CHOLESTEROL LEVEL eC ([facility]) Triglyceride [Mass/volume] in Serum or Plasma by calculation 92 <150 TRIGLYCERIDES LEVEL eC1 ([facility]) Cholesterol in LDL [Mass/volume] in Serum or Plasma by calculation 65 <100 LDL CHOLESTEROL eCW1 ([facility]) Cholesterol in HDL [Moles/volume] in Serum or Plasma 73 >40 HDL CHOLESTEROL eCW1 ([facility]) 83 NON-HDL-C eCW1 ([facility]) 2.136 <5 CHOLESTEROL RISK RATIO eCW ([facility]) ID Date Data Source CBC with Auto Differential 05/26/2020 12:00:00 AM EDT [facility] ( [facility]) Name Value Range Interpretation Code Description Data Tashia rce(s) Supporting Document(s) 33.8 36.0-47.0 eCW1 ([facility]) 10.8 12.0-15.5 eCW1 ([facility]) 7.7 4.0-10.0 eCW1 ([facility]) 89.9 80.0-96.0 eCW1 ([facility]) 3.76 4.00-5.40 eCW1 ([facility]) 14.1 11.5-14.5 eCW1 ([facility]) 32.0 32.0-36.5 eCW1 ([facility]) 28.7 27.0-33.0 eCW1 ([facility]) 343 150-450 eCW1 ([facility] [place]) 4.7 0.0-3.0 eCW1 ([facility]) 32.1 24.0-44.0 eCW1 ([facility]) 6.1 2.0-8.0 eCW1 ([facility]) 55.9 36.0-66.0 eCW1 ([facility]) 0.0 0-0 eCW1 ([facility]) 4.3 1.5-8.5 eCW1 ([facility]) 0.4 0-3.0 eCW1 ([facility]) 0.8 0.0-1.0 eCW1 ([facility]) 0.1 0.0-0.2 eCW1 ([facility]) 2.5 1.5-5.0 eCW1 ([facility]) 0.5 0.0-0.8 eCW1 ([facility]) 0.4 0.0-0.5 eCW1 ([facility]) ID Date Data Source IRON (FE) 05/26/2020 12:00:00 AM EDT eCW1 ([facility]) Name Value Range Interpretation Code Description Data Tashia rce(s) Supporting Document(s) 46 50-170 eCW1 ([facility]) ID Date Data Source [id number] 05/12/2020 12:00:00 AM EST eCW1 ([facility]) Name Value Range Interpretation Code Description Data Tashia rce(s) Supporting Document(s) Microalbumin/Creatinine [Ratio] in Urine 8.9 0.0-30.0 eCW1 ([facility]) Albumin/Creatinine [Mass Ratio] in Urine 9.8 eCW1 ([facility]) Microalbumin/Creatinine [Mass Ratio] in Urine 109.0 eCW1 ([facility]) ID Date Data Source [id number] 04/29/2020 06:29:00 AM EST [facility] Name Value Range Interpretation Code Description Data Tashia rce(s) Supporting Document(s) SARS-CoV-2 (COVID 19) NEGATIVE - SARS-CoV-2 (COVID19) [facility] This lab was ordered by [facility] a nd reported by [facility]. ID Date Data Source [id number] 04/09/2020 10:42:00 AM EST [place]: 04/09/20 1043 INTERFACED REPORT Name: Cassie Jiang Age/Sex: 64/F Location: [facility] Acct: [id number] Unit: [id number] Status: REG REF Room/Bed: Re04/07/20 Disch: Att Dr: Monica Bal MD Specimen #: [id number] Ordered : 04/07/2003/27/1856 Collected : 04/07/2003/27/1329 By: [...] Susceptible I = Intermediate R = Resistant ATNIA = Beta Lactamase Positive DONNA = MCG/mL BLANK = Not Tested or Advisable URINE CULTURE Preliminary (Corrected) COLIFORMS MANY END OF REPORT Name Value Range Interpretation Code Description Data Tashia rce(s) Supporting Document(s) ID Date Data Source [id number] 04/07/2020 01:30:00 PM EST [facility] ([facility]) Name Value Range Interpretation Code Description Data Tashia rce(s) Supporting Document(s) Glucose [Presence] in Urine Laboratory test result [facility] ([facility]) Ua Nitrite Laboratory test result [facility] ([facility]) Protein [Presence] in Urine by Test strip Laboratory test result [facility] ([facility]) Ua Leuko Laboratory test result [facility] ([facility]) Blood [Presence] in Urine by Visual Laboratory test result [facility] ([facility]) Color of Urine Laboratory test result [facility] ([facility]) Ketones [Presence] in Urine by Test strip Laboratory test result [facility] ([facility]) Clarity of Urine Laboratory test result [facility] ([facility]) pH of Urine by Test strip 5.0 5.0-7.5 [facility] ([facility]) Ua Specific [place] 1.025 1.003-1.030 [facility] NT ([facility]) Bilirubin.total [Presence] in Urine by Test strip Laboratory test res ult [facility] ([facility]) Urobilinogen [Mass/volume] in Urine by Test strip 0.2 E.U./dL 0.0-1.0 [facility] ([facility]) ID Date Data Source [id number] 04/07/2020 01:30:00 PM EST [facility] ([facility]) Name Value Range Interpretation Code Description Data Tashia rce(s) Supporting Document(s) Bacteria identified in Urine by Culture Laboratory test result [facility] ([facility]) <content>Run: 04/09/20 1043 INTERFACED REPORT</content>
<content> ntent>Name: Cassie Jiang Age/Sex: 64/F Location: [facility]</content>
<content>Acct: [id number] Unit: [id number] Status: REG REF Room/Bed:</content>
<content>Re04/07/20 Disch: Att Dr: Monica Bal MD</content>
<content> </content>
<content></content>
<content>Specimen #: [id number] Ordered : 04/07/2003/27/1856</content>
<content>Collected : 04/07/2003/27/1329 By: [...] REPORT </content>
<content></content> ID Date Data Source [id number] 04/07/2020 01:23:00 PM EST [facility] ([facility]) Name Value Range Interpretation Code Description Data Tashia rce(s) Supporting Document(s) Glucose [Presence] in Urine Laboratory test result [facility] ([facility]) Protein [Presence] in Urine by Test strip Laboratory test result [facility] ([facility]) Ua Leuko Laboratory test result [facility] ([facility]) Ua Nitrite Laboratory test result [facility] ([facility]) Color of Urine Laboratory test result [facility] ([facility]) Blood [Presence] in Urine by Visual Laboratory test result [facility] ([facility]) Ketones [Presence] in Urine by Test strip Laboratory test result [facility] ([facility]) Clarity of Urine Laboratory test result [facility] ([facility]) Ua Specific [place] Laboratory test result 1.003-1.030 [facility] ([facility]) pH of Urine by Test strip 5.0 5.0-7.5 [facility] ([facility]) Urobilinogen [Mass/volume] in Urine by Test strip 0.2 E.U./dL 0.0-1.0 [facility] ([facility]) Bilirubin.total [Presence] in Urine by Test strip Laboratory test res ult [facility] ([facility]) ID Date Data Source [id number] 03/26/2020 12:00:00 AM EST [facility] ([facility]) Name Value Range Interpretation Code Description Data Tashai rce(s) Supporting Document(s) ID Date Data Source [id number] 03/26/2020 12:00:00 AM EST [facility] ([facility]) Name Value Range Interpretation Code Description Data Tashia rce(s) Supporting Document(s) SARS-CoV-2 (COVID-19) RNA [Presence] in Respiratory specimen by PHANI with probe detection negative negative Sars-cov-2 [facility] ([facility]) ID Date Data Source [id number] 03/26/2020 12:00:00 AM EST [facility] ([facility]) Name Value Range Interpretation Code Description Data Tashia rce(s) Supporting Document(s) ID Date Data Source [id number] 03/26/2020 12:00:00 AM EST [facility] ([facility]) Name Value Range Interpretation Code Description Data Tashia rce(s) Supporting Document(s) SARS-CoV-2 (COVID-19) RNA [Presence] in Respiratory specimen by PHANI with probe detection negative negative Sars-cov-2 [facility] ([facility]) ID Date Data Source [id number] 03/26/2020 12:00:00 AM EST [facility] ([facility]) Name Value Range Interpretation Code Description Data Tashia rce(s) Supporting Document(s) ID Date Data Source [id number] 03/26/2020 12:00:00 AM EST [facility] Name Value Range Interpretation Code Description Data Tashia rce(s) Supporting Document(s) SARS-CoV-2 NEGATIVE [facility] This lab was ordered by [facility] and reported by [employer]. ID Date Data Source [id number] 03/26/2020 12:00:00 AM EST [facility] ([facility]) Name Value Range Interpretation Code Description Data Tashia rce(s) Supporting Document(s) SARS-CoV-2 (COVID-19) RNA [Presence] in Respiratory specimen by PHANI with probe detection negative negative Sars-cov-2 [facility] ([facility]) ID Date Data Source [id number] 03/26/2020 12:00:00 AM EST [facility] ([facility]) Name Value Range Interpretation Code Description Data Tashia rce(s) Supporting Document(s) ID Date Data Source [id number] 03/26/2020 12:00:00 AM EST [facility] ([facility]) Name Value Range Interpretation Code Description Data Tashia rce(s) Supporting Document(s) SARS-CoV-2 (COVID-19) RNA [Presence] in Respiratory specimen by PHANI with probe detection negative negative Sars-cov-2 [facility] ([facility]) ID Date Data Source [id number] 03/26/2020 12:00:00 AM EST [facility] ([facility]) Name Value Range Interpretation Code Description Data Tashia rce(s) Supporting Document(s) ID Date Data Source [id number] 03/26/2020 12:00:00 AM EST [facility] ([facility]) Name Value Range Interpretation Code Description Data Tashia rce(s) Supporting Document(s) SARS-CoV-2 (COVID-19) RNA [Presence] in Respiratory specimen by PHANI with probe detection negative negative Sars-cov-2 [facility] ([facility]) ID Date Data Source [id number] 03/26/2020 12:00:00 AM EST [facility] ([facility]) Name Value Range Interpretation Code Description Data Tashia rce(s) Supporting Document(s) ID Date Data Source [id number] 03/26/2020 12:00:00 AM EST [facility] ([facility]) Name Value Range Interpretation Code Description Data Tashia rce(s) Supporting Document(s) SARS-CoV-2 (COVID-19) RNA [Presence] in Respiratory specimen by PHANI with probe detection negative negative Sars-cov-2 [facility] ([facility]) ID Date Data Source [id number] 03/26/2020 12:00:00 AM EST [facility] ([facility]) Name Value Range Interpretation Code Description Data Tashia rce(s) Supporting Document(s) ID Date Data Source [id number] 03/26/2020 12:00:00 AM EST [facility] ([facility]) Name Value Range Interpretation Code Description Data Tashia rce(s) Supporting Document(s) SARS-CoV-2 (COVID-19) RNA [Presence] in Respiratory specimen by PHANI with probe detection negative negative Sars-cov-2 [facility] ([facility]) ID Date Data Source [id number] 03/12/2020 10:08:00 AM EST [facility] ([facility], ) Name Value Range Interpretation Code Description Data Tashia rce(s) Supporting Document(s) PDFReport Laboratory test result [facility] ([facility], ) FVC-Pred 3.47 L [facility] ([facility], ) FVC-%Pred-Pre 73 L [facility] ([facility]) FVC-Pre 2.54 L [facility] ([facility]) FVC-LLN 2.73 L [facility] ([facility]) Fev1-%Pred-Pre 72 L [facility] ([facility]) Fev1-Pre 1.92 L [facility] ([facility]) Fev1-Pred 2.67 L [facility] ([facility]) Fev6-Pred 3.34 L [facility] ([facility]) Fev1-LLN 2.04 L [facility] ([facility]) Fev6-%Pred-Pre 75 L [facility] ([facility]) Jgl2zyu-Gwvc 77 % [facility] ([facility]) Fev6-Pre 2.51 L [facility] ([facility]) Fev6-LLN 2.62 L [facility] ([facility]) Zrn0rng-Mdt 76 % [facility] ([facility]) Tbd5chc-%Pred-Pre 97 % [facility] ([facility]) Pdr6ueb-ELI 68 % [facility] ([facility]) Uwr1cab-%Pred-Pre 102 % [facility] ([facility]) Ydd6vna-Klfq 96 % [facility] ([facility]) Xnc6glr-Zdn 99 % [facility] ([facility]) FEFMax-Pre 5.72 L/E/sec [facility] ([facility]) FEFMax-Pred 6.43 L/E/sec [facility] ([facility]) FEFMax-%Pred-Pre 88 L/E/sec [facility] ([facility]) Pla3462-Eyyb 2.34 L/E/sec [facility] ([facility]) FEFMax-LLN 4.61 L/E/sec [facility] ([facility]) Vin6880-Opi 1.46 L/E/sec [facility] ([facility]) Pfv6846-LZZ 1.02 L/E/sec [facility] ([facility]) ExpTime-Pre 7.33 sec [facility] ([facility]) Rav5497-%Pred-Pre 62 L/E/sec [facility] ([facility]) Loq8cmb0-Njl 76 % [facility] ([facility]) Ioh5ssz6-%Pred-Pre 95 % [facility] ([facility]) Xoi5vqg2-Jqib 80 % [facility] ([facility]) Pgn2mzm0-HIM 71 % [facility] ([facility]) ID Date Data Source [id number] 01/11/2020 11:49:00 AM EST [facility] Name Value Range Interpretation Code Description Data Tashia rce(s) Supporting Document(s) LINDA BY DNA PROBE NEGATIVE NEGATIVE [facility] [place] [facility] GARDNERELLA BY DNA PROBE POSITIVE NEGATIVE [facility] TRICHOMONAS BY DNA PROBE NEGATIVE NEGATIVE [facility] TESTING PERFORMED BY NUCLEIC ACID HYBRI DIZATION ID Date Data Source [id number] 01/10/2020 02:03:00 PM EST [facility] ([facility]) Name Value Range Interpretation Code Description Data Tashia rce(s) Supporting Document(s) Bacteria identified in Vaginal fluid by Aerobe culture Laborator y test result [facility] ([facility]) ID Date Data Source [id number] 01/10/2020 02:03:00 PM EST [facility] ([facility]) Name Value Range Interpretation Code Description Data Tashia rce(s) Supporting Document(s) Gardnerella By Dna Probe Laboratory test result Abnormal (applies to non- numeric results) [facility] ([facility]) Linda sp rRNA [Presence] in Vaginal fluid by DNA probe Lab oratory test result [facility] ([facility]) Trichomonas vaginalis rRNA [Presence] in Genital speci men by DNA probe Laboratory test result [facility] ([facility]) TESTING PERFORMED BY NUCLEIC ACID HYBRID IZATION ID Date Data Source [id number] 01/12/2020 11:21:00 AM EST [facility] Run: 01/12/20 1121 INTERFACED REPORT Name: Cassie Jiang Age/Sex: 64/F Location: [facility] Acct: [id number] Unit: [id number] Status: REG REF Room/Bed: Re01/10/20 Disch: Att Dr: Amira Garg Specimen #: [id number] Ordered : 01/10/2007/24/1930 Collected : 01/10/2007/24/1401 By: [...] rce(s) Supporting Document(s) ID Date Data Source [id number] 01/10/2020 02:02:00 PM EST [facility] ([facility]) Name Value Range Interpretation Code Description Data Tashia rce(s) Supporting Document(s) Bacteria identified in Urine by Culture Laboratory test result [facility] ([facility]) <content> --------</content>
<content>Run: 01/12/20 1121 INTERFACED REPORT</content>
<content> </content>
<content>Name: Cassie Jiang Age/Sex: 64/F Location: LAB</content>
<content>Acct: [id number] Unit: [id number] Status: REG REF Room/Bed:</content>
<content>Re01/10/20 Disch: Junior Dr: Amira Garg</content>
<content> </content>
<content></content>
<content>Specimen #: [id number] Ordered : 01/10/2007/24/1930</content>
<content>Collected : 01/10/2007/24/1401 By: [...] REPORT </content>
<content></content> ID Date Data Source [id number] 01/10/2020 02:01:00 PM EST [facility] ([facility]) Name Value Range Interpretation Code Description Data Tashia rce(s) Supporting Document(s) Glucose [Presence] in Urine Laboratory test result [facility] ([facility]) Protein [Presence] in Urine by Test strip Laboratory test result [facility] ([facility]) Ua Nitrite Laboratory test result [facility] ([facility]) Ua Leuko Laboratory test result [facility] ([facility]) Blood [Presence] in Urine by Visual Laboratory test result [facility] ([facility]) Ketones [Presence] in Urine by Test strip 15 mg/dL [facility] ([facility]) Color of Urine Laboratory test result [facility] ([facility]) pH of Urine by Test strip 6.5 5.0-7.5 [facility] ([facility]) Ua Specific [place] 1.020 1.003-1.030 [facility] NT ([facility]) Clarity of Urine Laboratory test result [facility] ([facility]) Urobilinogen [Mass/volume] in Urine by Test strip 0.2 E.U./dL 0.0-1.0 [facility] ([facility]) Bilirubin.total [Presence] in Urine by Test strip Laboratory test res ult [facility] ([facility]) ID Date Data Source [id number] 01/10/2020 01:44:00 PM EST [facility] ([facility]) Name Value Range Interpretation Code Description Data Tashia rce(s) Supporting Document(s) Glucose [Presence] in Urine Laboratory test result [facility] ([facility]) Ua Nitrite Laboratory test result [facility] ([facility]) Protein [Presence] in Urine by Test strip Laboratory test result [facility] ([facility]) Ua Leuko Laboratory test result [facility] ([facility]) Blood [Presence] in Urine by Visual Laboratory test result [facility] ([facility]) Ketones [Presence] in Urine by Test strip 15 mg/dL [facility] ([facility]) Clarity of Urine Laboratory test result [facility] ([facility]) Color of Urine Laboratory test result MEDENT ([facility]) Ua Specific [place] 1.025 1.003-1.030 MEDE NT ([facility]) pH of Urine by Test strip 6.0 5.0-7.5 MEDENT ([facility]) Urobilinogen [Mass/volume] in Urine by Test strip 0.2 E.U./dL 0.0-1.0 MEDENT ([facility]) Bilirubin.total [Presence] in Urine by Test strip Laboratory test res ult MEDENT ([facility]) ID Date Data Source [id number] 12/13/2019 12:42:00 PM EDT [facility] Run: 12/13/19 1243 INTERFACED REPORT Name: Cassie Jiang Age/Sex: 64/F Location: [facility] Acct: [id number] Unit: [id number] Status: REG REF Room/Bed: Re12/11/19 Disch: Junior Dr: Monica Bal MD Specimen #: [id number] Ordered : 12/11/1908/24/2102 Collected : 12/11/1908/25/1547 By: EMERSON Received: 12/11/1908/24/2102 By: EVERARDO Source: URINE CATH [...] rce(s) Supporting Document(s) ID Date Data Source [id number] 12/11/2019 03:48:00 PM EDT [facility] ([facility]) Name Value Range Interpretation Code Description Data Tashia rce(s) Supporting Document(s) Bacteria identified in Urine by Culture Laboratory test result [facility]ENT ([facility]) <content> --------</content>
<content>Run: 12/13/19 1243 INTERFACED REPORT</content>
<content> </content>
<content>Name: Cassie Jiang Age/Sex: 64/F Location: [facility]</content>
<content>Acct: [id number] Unit: [id number] Status: REG REF Room/Bed:</content>
<content>Re12/11/19 Disch: Junior Dr: Monica Bal MD</content>
<content> </content>
<content></content>
<content>Specimen #: [id number] Ordered : 12/11/1908/24/2102</content>
<content>Collected : 12/11/1908/25/1547 By: [...] REPORT </content>
<content></content> ID Date Data Source [id number] 11/28/2019 12:00:00 AM EDT MARILIA ([facility]) Name Value Range Interpretation Code Description Data Tashia rce(s) Supporting Document(s) ID Date Data Source [id number] 11/28/2019 12:00:00 AM EDT [facility] Name Value Range Interpretation Code Description Data Tashia rce(s) Supporting Document(s) SARS-CoV-2 [facility] This lab was ordered by [facility]-COVID19 and reported by [employer]. ID Date Data Source [id number] 11/28/2019 12:00:00 AM EDT MARILIA ([facility]) Name Value Range Interpretation Code Description Data Tashia rce(s) Supporting Document(s) ID Date Data Source [id number] 11/28/2019 12:00:00 AM EDT MARILIA ([facility]) Name Value Range Interpretation Code Description Data Tashia rce(s) Supporting Document(s) ID Date Data Source [id number] 11/28/2019 12:00:00 AM EDT MARILIA ([facility]) Name Value Range Interpretation Code Description Data Tashia rce(s) Supporting Document(s) ID Date Data Source [id number] 11/28/2019 12:00:00 AM EDT MARILIA ([facility]) Name Value Range Interpretation Code Description Data Tashia rce(s) Supporting Document(s) ID Date Data Source [id number] 11/28/2019 12:00:00 AM EDT MARILAI ([facility]) Name Value Range Interpretation Code Description Data Tashia rce(s) Supporting Document(s) ID Date Data Source [id number] 11/28/2019 12:00:00 AM EDT MARILIA ([facility]) Name Value Range Interpretation Code Description Data Tashia rce(s) Supporting Document(s) ID Date Data Source [id number] 11/28/2019 12:00:00 AM EDT MARILIA ([facility]) Name Value Range Interpretation Code Description Data Tashia rce(s) Supporting Document(s) ID Date Data Source [id number] 11/28/2019 12:00:00 AM EDT MARILIA ([facility]) Name Value Range Interpretation Code Description Data Tashia rce(s) Supporting Document(s) ID Date Data Source [id number] 11/28/2019 12:00:00 AM EDT MARILIA ([facility]) Name Value Range Interpretation Code Description Data Tashia rce(s) Supporting Document(s) ID Date Data Source [id number] 11/28/2019 12:00:00 AM EDT MARILIA ([facility]) Name Value Range Interpretation Code Description Data Tashia rce(s) Supporting Document(s) ID Date Data Source [id number] 11/27/2019 11:57:00 AM EDT [facility] ([facility]) Name Value Range Interpretation Code Description Data Tashia rce(s) Supporting Document(s) Protein [Presence] in Urine by Test strip Laboratory test result [facility]ENT ([facility]) Glucose [Presence] in Urine Laboratory test result [facility] ([facility]) Ua Nitrite Laboratory test result ME DENT ([facility]) Color of Urine Laboratory test result MEDENT ([facility]) Ua Leuko Laboratory test result ME DENT ([facility]) Blood [Presence] in Urine by Visual Laboratory test result MEDENT ([facility]) Clarity of Urine Laboratory test result MEDENT ([facility]) Ketones [Presence] in Urine by Test strip Laboratory test result MEDENT ([facility]) Ua Specific [place] Laboratory test result 1.003-1.030 MEDENT ([facility]) Urobilinogen [Mass/volume] in Urine by Test strip 0.2 E.U./dL 0.0-1.0 MEDENT ([facility]) Bilirubin.total [Presence] in Urine by Test strip Laboratory test res ult MEDENT ([facility]) pH of Urine by Test strip 5.5 5.0-7.5 MEDENT ([facility]) ID Date Data Source [id number] 11/23/2019 12:00:00 AM EDT MARILIA ([facility]) Name Value Range Interpretation Code Description Data Tashia rce(s) Supporting Document(s) ID Date Data Source [id number] 11/23/2019 12:00:00 AM EDT [facility] Name Value Range Interpretation Code Description Data Tashia rce(s) Supporting Document(s) [facility] and reported by [employer]. ID Date Data Source [id number] 11/23/2019 12:00:00 AM EDT MARILIA ([facility]) Name Value Range Interpretation Code Description Data Tashia rce(s) Supporting Document(s) ID Date Data Source [id number] 11/23/2019 12:00:00 AM EDT MARILIA ([facility]) Name Value Range Interpretation Code Description Data Tashia rce(s) Supporting Document(s) ID Date Data Source [id number] 11/23/2019 12:00:00 AM EDT MARILIA ([facility]) Name Value Range Interpretation Code Description Data Tashia rce(s) Supporting Document(s) ID Date Data Source [id number] 11/23/2019 12:00:00 AM EDT MARILIA ([facility]) Name Value Range Interpretation Code Description Data Tashia rce(s) Supporting Document(s) ID Date Data Source [id number] 11/23/2019 12:00:00 AM EDT MARILIA ([facility]) Name Value Range Interpretation Code Description Data Tashia rce(s) Supporting Document(s) ID Date Data Source [id number] 11/23/2019 12:00:00 AM EDT MARILIA ([facility]) Name Value Range Interpretation Code Description Data Tashia rce(s) Supporting Document(s) ID Date Data Source [id number] 11/23/2019 12:00:00 AM EDT MARILIA ([facility]) Name Value Range Interpretation Code Description Data Tashia rce(s) Supporting Document(s) ID Date Data Source [id number] 11/23/2019 12:00:00 AM EDT MARILIA ([facility]) Name Value Range Interpretation Code Description Data Tashia rce(s) Supporting Document(s) ID Date Data Source [id number] 11/23/2019 12:00:00 AM EDT MARILIA ([facility]) Name Value Range Interpretation Code Description Data Tashia rce(s) Supporting Document(s) ID Date Data Source [id number] 11/23/2019 12:00:00 AM EDT MARILIA ([facility]) Name Value Range Interpretation Code Description Data Tashia rce(s) Supporting Document(s) ID Date Data Source [id number] 11/23/2019 12:00:00 AM EDT MARILIA ([facility]) Name Value Range Interpretation Code Description Data Tashia rce(s) Supporting Document(s) ID Date Data Source [id number] 11/02/2019 12:00:00 AM EDT [facility] Name Value Range Interpretation Code Description Data Tashia rce(s) Supporting Document(s) SARS-CoV-2 [facility] This lab was ordered by [facility] and reported by [employer]. ID Date Data Source [id number] 11/02/2019 12:00:00 AM EDT MARILIA ([facility]) Name Value Range Interpretation Code Description Data Tashia rce(s) Supporting Document(s) ID Date Data Source [id number] 11/02/2019 12:00:00 AM EDT MARILIA ([facility]) Name Value Range Interpretation Code Description Data Tashia rce(s) Supporting Document(s) ID Date Data Source [id number] 11/02/2019 12:00:00 AM EDT MARILIA ([facility]) Name Value Range Interpretation Code Description Data Tashia rce(s) Supporting Document(s) ID Date Data Source [id number] 11/02/2019 12:00:00 AM EDT MARILIA ([facility]) Name Value Range Interpretation Code Description Data Tashia rce(s) Supporting Document(s) ID Date Data Source [id number] 11/02/2019 12:00:00 AM EDT MARILIA ([facility]) Name Value Range Interpretation Code Description Data Tashia rce(s) Supporting Document(s) ID Date Data Source [id number] 11/02/2019 12:00:00 AM EDT MARILIA ([facility]) Name Value Range Interpretation Code Description Data Tashia rce(s) Supporting Document(s) ID Date Data Source [id number] 11/02/2019 12:00:00 AM EDT MARILIA ([facility]) Name Value Range Interpretation Code Description Data Tashia rce(s) Supporting Document(s) ID Date Data Source [id number] 11/02/2019 12:00:00 AM EDT MARILIA ([facility]) Name Value Range Interpretation Code Description Data Tashia rce(s) Supporting Document(s) ID Date Data Source [id number] 11/02/2019 12:00:00 AM EDT MARILIA ([facility]) Name Value Range Interpretation Code Description Data Tashia rce(s) Supporting Document(s) ID Date Data Source [id number] 11/02/2019 12:00:00 AM EDT MARILIA ([facility]) Name Value Range Interpretation Code Description Data Tashia rce(s) Supporting Document(s) ID Date Data Source [id number] 11/02/2019 12:00:00 AM EDT MARILIA ([facility]) Name Value Range Interpretation Code Description Data Tashia rce(s) Supporting Document(s) ID Date Data Source [id number] 11/02/2019 12:00:00 AM EDT MARILIA ([facility]) Name Value Range Interpretation Code Description Data Tashia rce(s) Supporting Document(s) ID Date Data Source [id number] 11/02/2019 12:00:00 AM EDT MARILIA ([facility]) Name Value Range Interpretation Code Description Data Tashia rce(s) Supporting Document(s) ID Date Data Source [id number] 11/02/2019 12:00:00 AM EDT MARILIA ([facility]) Name Value Range Interpretation Code Description Data Tashia rce(s) Supporting Document(s) ID Date Data Source [id number] 11/02/2019 12:00:00 AM EDT MARILIA ([facility]) Name Value Range Interpretation Code Description Data Tashia rce(s) Supporting Document(s) Procedure Social History Code Duration Value Status Description Data Source(s ) Smoking 12/20/2020 12:00:00 AM EDT Never Smoker completed Never S moker eCW1 ([facility]) Smoking 11/14/2020 12:00:00 AM EDT Never Smoker completed Never S moker eCW1 ([facility]) Smoking 11/14/2020 12:00:00 AM EDT Never Smoker completed Never S moker eCW1 ([facility]) Smoking 11/14/2020 12:00:00 AM EDT Never Smoker completed Never S moker eCW1 ([facility]) Smoking 11/14/2020 12:00:00 AM EDT Never Smoker completed Never S moker eCW1 ([facility]) Smoking 11/14/2020 12:00:00 AM EDT Never Smoker completed Never S moker eCW1 ([facility]) Smoking 11/14/2020 12:00:00 AM EDT Never Smoker completed Never S moker eCW1 ([facility]) Smoking 11/14/2020 12:00:00 AM EDT Never Smoker completed Never S moker eCW1 ([facility]) Smoking 11/14/2020 12:00:00 AM EDT Never Smoker completed Never S moker eCW1 ([facility]) Smoking 11/14/2020 12:00:00 AM EDT Never Smoker completed Never S moker eCW1 ([facility]) Smoking 11/14/2020 12:00:00 AM EDT Never Smoker completed Never S moker eCW1 ([facility]) Smoking 11/14/2020 12:00:00 AM EDT Never Smoker completed Never S moker eCW1 ([facility]) Smoking 11/14/2020 12:00:00 AM EDT Never Smoker completed Never S moker eCW1 ([facility]) Smoking 10/21/2020 12:00:00 AM EDT Never Smoker completed Never S moker eCW1 ([facility]) Smoking 10/21/2020 12:00:00 AM EDT Never Smoker completed Never S moker eCW1 ([facility]) Smoking 10/21/2020 12:00:00 AM EDT Never Smoker completed Never S moker eCW1 ([facility]) Smoking 10/21/2020 12:00:00 AM EDT Never Smoker completed Never S moker eCW1 ([facility]) Smoking 10/21/2020 12:00:00 AM EDT Never Smoker completed Never S moker eCW1 ([facility]) Smoking 10/08/2020 12:00:00 AM EDT Patient has never smoked co mpleted Patient has never smoked MEDENT ([facility] ) Smoking 09/22/2020 12:00:00 AM EDT Never Smoker completed Never S moker eCW1 ([facility]) Smoking 09/22/2020 12:00:00 AM EDT Never Smoker completed Never S moker eCW1 ([facility]) Smoking 08/11/2020 12:00:00 AM EDT Never Smoked Cigarettes com pleted Never Smoked Cigarettes [facility]ENT ([facility]) Smoking 07/04/2020 12:00:00 AM EDT Never Smoker completed Never S moker eCW1 ([facility]) Smoking 07/04/2020 12:00:00 AM EDT Never Smoker completed Never S moker eCW1 ([facility]) Smoking 07/04/2020 12:00:00 AM EDT Never Smoker completed Never S moker eCW1 ([facility]) Smoking 07/04/2020 12:00:00 AM EDT Never Smoker completed Never S moker eCW1 ([facility]) Smoking 07/04/2020 12:00:00 AM EDT Never Smoker completed Never S moker eCW1 ([facility]) Smoking 07/04/2020 12:00:00 AM EDT Never Smoker completed Never S moker eCW1 ([facility]) Smoking 07/04/2020 12:00:00 AM EDT Never Smoker completed Never S moker eCW1 ([facility]) Smoking 07/04/2020 12:00:00 AM EDT Never Smoker completed Never S moker eCW1 ([facility]) Smoking 07/04/2020 12:00:00 AM EDT Never Smoker completed Never S moker eCW1 ([facility]) Smoking 07/04/2020 12:00:00 AM EDT Never Smoker completed Never S moker eCW1 ([facility]) Smoking 07/04/2020 12:00:00 AM EDT Never Smoker completed Never S moker eCW1 ([facility]) Smoking 05/26/2020 12:00:00 AM EDT Never Smoker completed Never S moker eCW1 ([facility]) Smoking 05/26/2020 12:00:00 AM EDT Never Smoker completed Never S moker eCW1 ([facility]) Smoking 05/26/2020 12:00:00 AM EDT Never Smoker completed Never S moker eCW1 ([facility]) Smoking 05/26/2020 12:00:00 AM EDT Never Smoker completed Never S moker eCW1 ([facility]) Smoking 05/26/2020 12:00:00 AM EDT Never Smoker completed Never S moker eCW1 ([facility]) Smoking 05/26/2020 12:00:00 AM EDT Never Smoker completed Never S moker eCW1 ([facility]) Smoking 05/26/2020 12:00:00 AM EDT Never Smoker completed Never S moker eCW1 ([facility]) Smoking 05/26/2020 12:00:00 AM EDT Never Smoker completed Never S moker eCW1 ([facility]) Smoking 05/26/2020 12:00:00 AM EDT Never Smoker completed Never S moker eCW1 ([facility]) Smoking 05/26/2020 12:00:00 AM EDT Never Smoker completed Never S moker eCW1 ([facility]) Smoking 05/26/2020 12:00:00 AM EDT Never Smoker completed Never S moker eCW1 ([facility]) Smoking 05/12/2020 12:00:00 AM EST Never Smoker completed Never S moker eCW1 ([facility]) Smoking 05/12/2020 12:00:00 AM EST Never Smoker completed Never S moker eCW1 ([facility]) Smoking 05/12/2020 12:00:00 AM EST Never Smoker completed Never S moker eCW1 ([facility]) Vital Signs ID Date Data Source UNK Name Value Range Interpretation Code Description Data Source(s) Body temperature 96.9 [degF] 96.9 [degF] eCW1 ( [facility]) Respiratory rate 18 /min 18 /min eCW1 ([facility]) Heart rate 88 /min 88 /min eCW1 (Count includes the [facility]) Body mass index (BMI) [Ratio] 35.80 kg/m2 35.80 kg/m2 [facility] ([facility]) Body height 66 [in_i] 66 [in_i] eCW1 ([facility]) Body weight 100.61 kg 100.61 kg W1 ([facility]) Body weight 221.8 [lb_av] 221.8 [lb_av] eCW1 ([facility]) Diastolic blood pressure 78 mm[Hg] 78 mm[Hg] eCW1 ([facility]) Systolic blood pressure 122 mm[Hg] 122 mm[Hg] e CW1 ([facility]) Body temperature 96.9 [degF] 96.9 [degF] eCW1 ( [facility]) Respiratory rate 18 /min 18 /min eCW1 ([facility]) Heart rate 88 /min 88 /min eCW1 (Count includes the [facility]) Body mass index (BMI) [Ratio] 35.80 kg/m2 35.80 kg/m2 eCW1 ([facility]) Body height 66 [in_i] 66 [in_i] eCW1 ([facility]) Body weight 100.61 kg 100.61 kg eCW1 ([facility]) Body weight 221.8 [lb_av] 221.8 [lb_av] eCW1 ([facility]) Diastolic blood pressure 78 mm[Hg] 78 mm[Hg] eCW1 ([facility]) Systolic blood pressure 122 mm[Hg] 122 mm[Hg] e CW1 ([facility]) Body temperature 97.4 [degF] 97.4 [degF] eCW1 ( [facility]) Respiratory rate 18 /min 18 /min eCW1 ([facility]) Heart rate 105 /min 105 /min eCW1 (Count includes the [facility]) Body mass index (BMI) [Ratio] 36.44 kg/m2 36.44 kg/m2 eCW1 ([facility]) Body height 66 [in_i] 66 [in_i] eCW1 ([facility]) Body weight 102.42 kg 102.42 kg eCW1 ([facility]) Body weight 225.8 [lb_av] 225.8 [lb_av] eCW1 ([facility]) Diastolic blood pressure 62 mm[Hg] 62 mm[Hg] eCW1 ([facility]) Systolic blood pressure 128 mm[Hg] 128 mm[Hg] e CW1 ([facility]) Body surface area Derived from formula 2.11 m2 2.11 m2 MEDENT ([facility], ) Body weight 103.421 kg 103.421 kg MEDENT ([facility] ) [place] body weight 130 [lb_av] 130 [lb_av] MEDEN T ([facility], ) Body mass index (BMI) [Ratio] 36.8 kg/m2 36.8 k g/m2 [facility] Body weight 228.00 [lb_av] 228.00 [lb_av] RASHAD T ([facility], ) Body height 66 [in_i] 66 [in_i] EVELYNE ([facility], ) 5'6" Diastolic blood pressure 64 mm[Hg] 64 mm[Hg] EVELYNE ([facility]) Systolic blood pressure 112 mm[Hg] 112 mm[Hg] Bridger RICAREMY ([facility], ) Body height 66 [in_i] 66 [in_i] MARILIA ([facility]) Diastolic blood pressure 74 mm[Hg] 74 mm[Hg] MARILIA ([facility]) Body weight 224 [lb_av] 224 [lb_av] MARILIA ([facility]) Systolic blood pressure 128 mm[Hg] 128 mm[Hg] A THENA ([facility]) Body mass index (BMI) [Ratio] 36.2 kg/m2 36.2 k g/m2 MARILIA ([facility]) Body weight 224 [lb_av] 224 [lb_av] MARILIA ([facility]) Systolic blood pressure 128 mm[Hg] 128 mm[Hg] A THENA ([facility]) Body mass index (BMI) [Ratio] 36.2 kg/m2 36.2 k g/m2 MARILIA ([facility]) Body height 66 [in_i] 66 [in_i] MARILIA ([facility]) Diastolic blood pressure 74 mm[Hg] 74 mm[Hg] MARILIA ([facility]) Body weight 224 [lb_av] 224 [lb_av] MARILIA ([facility]) Systolic blood pressure 128 mm[Hg] 128 mm[Hg] A THENA ([facility]) Body mass index (BMI) [Ratio] 36.2 kg/m2 36.2 k g/m2 MARILIA ([facility]) Body height 66 [in_i] 66 [in_i] MARILIA ([facility]) Diastolic blood pressure 74 mm[Hg] 74 mm[Hg] MARILIA ([facility]) Body surface area Derived from formula 2.10 m2 2.10 m2 MEDREMY ([facility], ) Body weight 101.606 kg 101.606 kg [facility] ([facility]) [place] body weight 130 [lb_av] 130 [lb_av] MEDEN T ([facility]) Body mass index (BMI) [Ratio] 36.2 kg/m2 36.2 k g/m2 [facility] ([facility]) Body weight 224.00 [lb_av] 224.00 [lb_av] [facility] Body height 66 [in_i] 66 [in_i] [facility] ([facility]) 5'6" Oxygen saturation in Arterial blood by Pulse oximetry 96 % 96 % [facility] ([facility]) Heart rate 95 /min 95 /min [facility] ([facility]) Diastolic blood pressure 84 mm[Hg] 84 mm[Hg] [facility] ([facility]) Systolic blood pressure 132 mm[Hg] 132 mm[facility]Hg] [facility] Diastolic blood pressure 72 mm[Hg] 72 mm[Hg] eCW1 ([facility]) Systolic blood pressure 116 mm[Hg] 116 mm[Hg] e CW1 ([facility]) Body temperature 97.7 [degF] 97.7 [degF] eCW1 ( [facility]) Respiratory rate 18 /min 18 /min eCW1 ([facility]) Heart rate 91 /min 91 /min eCW1 (Count includes the [facility]) Body mass index (BMI) [Ratio] 36.96 kg/m2 36.96 kg/m2 eCW1 ([facility]) Body height 66 [in_i] 66 [in_i] eCW1 ([facility]) Body weight 229 [lb_av] 229 [lb_av] eCW1 ([facility]) Systolic blood pressure 115 mm[Hg] 115 mm[Hg] A THENA ([facility]) Diastolic blood pressure 77 mm[Hg] 77 mm[Hg] MARILIA ([facility]) Systolic blood pressure 115 mm[Hg] 115 mm[Hg] A THENA ([facility]) Diastolic blood pressure 77 mm[Hg] 77 mm[Hg] MARILIA ([facility]) Systolic blood pressure 115 mm[Hg] 115 mm[Hg] A THENA ([facility]) Diastolic blood pressure 77 mm[Hg] 77 mm[Hg] MARILIA ([facility]) Systolic blood pressure 115 mm[Hg] 115 mm[Hg] A THENA ([facility]) Diastolic blood pressure 77 mm[Hg] 77 mm[Hg] MARILIA ([facility]) Systolic blood pressure 115 mm[Hg] 115 mm[Hg] A THENA ([facility]) Diastolic blood pressure 77 mm[Hg] 77 mm[Hg] MARILIA ([facility]) Body mass index (BMI) [Ratio] 35.2 kg/m2 35.2 k g/m2 MEDENT ([facility]) Body weight 218.00 [lb_av] 218.00 [lb_av] MEDEN T ([facility]) Body height 66 [in_i] 66 [in_i] MEDENT ([facility]) 5'6" Diastolic blood pressure 70 mm[Hg] 70 mm[Hg] eCW1 ([facility]) Systolic blood pressure 122 mm[Hg] 122 mm[Hg] e CW1 ([facility]) Body temperature 97.1 [degF] 97.1 [degF] eCW1 ( [facility]) Respiratory rate 20 /min 20 /min eCW1 ([facility]) Heart rate 94 /min 94 /min eCW1 (Count includes the [facility]) Body mass index (BMI) [Ratio] 39.02 kg/m2 39.02 kg/m2 W1 ([facility]) Body height 66 [in_i] 66 [in_i] eCW1 ([facility]) Body weight 241.8 [lb_av] 241.8 [lb_av] eCW1 ([facility]) Diastolic blood pressure 68 mm[Hg] 68 mm[Hg] eCW1 ([facility]) Systolic blood pressure 110 mm[Hg] 110 mm[Hg] e CW1 ([facility]) Body temperature 98.3 [degF] 98.3 [degF] eCW1 ( [facility]) Respiratory rate 18 /min 18 /min eCW1 ([facility]) Heart rate 96 /min 96 /min eCW1 (Count includes the [facility]) Body mass index (BMI) [Ratio] 36.86 kg/m2 36.86 kg/m2 eCW1 ([facility]) Body height 66 [in_i] 66 [in_i] eCW1 ([facility]) Body weight 228.4 [lb_av] 228.4 [lb_av] eCW1 ([facility]) Diastolic blood pressure 78 mm[Hg] 78 mm[Hg] eCW1 ([facility]) Systolic blood pressure 102 mm[Hg] 102 mm[Hg] e CW1 ([facility]) Body temperature 97.8 [degF] 97.8 [degF] eCW1 ( [facility]) Respiratory rate 18 /min 18 /min eCW1 ([facility]) Heart rate 95 /min 95 /min eCW1 (Count includes the [facility]) Body mass index (BMI) [Ratio] 36.96 kg/m2 36.96 kg/m2 eCW1 ([facility]) Body height 66 [in_i] 66 [in_i] eCW1 ([facility]) Body weight 229 [lb_av] 229 [lb_av] eCW1 ([facility]) Systolic blood pressure 134 mm[Hg] 134 mm[Hg] A THENA ([facility]) Diastolic blood pressure 85 mm[Hg] 85 mm[Hg] MARILIA ([facility]) Systolic blood pressure 134 mm[Hg] 134 mm[Hg] A THENA ([facility]) Diastolic blood pressure 85 mm[Hg] 85 mm[Hg] MARILIA ([facility]) Systolic blood pressure 134 mm[Hg] 134 mm[Hg] A THENA ([facility]) Diastolic blood pressure 85 mm[Hg] 85 mm[Hg] MARILIA ([facility]) Systolic blood pressure 134 mm[Hg] 134 mm[Hg] A THENA ([facility]) Diastolic blood pressure 85 mm[Hg] 85 mm[Hg] MARILIA ([facility]) Systolic blood pressure 134 mm[Hg] 134 mm[Hg] A THENA ([facility]) Diastolic blood pressure 85 mm[Hg] 85 mm[Hg] MARILIA ([facility]) Systolic blood pressure 134 mm[Hg] 134 mm[Hg] A THENA ([facility]) Diastolic blood pressure 85 mm[Hg] 85 mm[Hg] MARILIA ([facility]) Body surface area Derived from formula 2.12 m2 2.12 m2 [facility] ([facility]) Body weight 103.874 kg 103.874 kg [facility] ([facility]) [place] body weight 130 [lb_av] 130 [lb_av] MEDEN T ([facility]) Body mass index (BMI) [Ratio] 37.0 kg/m2 37.0 k g/m2 [facility] ([facility]) Body weight 229.00 [lb_av] 229.00 [lb_av] MEDEN T ([facility]) Body height 66 [in_i] 66 [in_i] [facility] ([facility]) 5'6" Oxygen saturation in Arterial blood by Pulse oximetry 98 % 98 % [facility] ([facility]) Room Air Heart rate 88 /min 88 /min [facility] ([facility]) Diastolic blood pressure 76 mm[Hg] 76 mm[Hg] [facility] ([facility]) Systolic blood pressure 126 mm[Hg] 126 [facility]Hg] [facility] Body surface area Derived from formula 2.12 m2 2.12 m2 [facility] ([facility]) Body weight 103.874 kg 103.874 kg [facility] ([facility]) [place] body weight 130 [lb_av] 130 [lb_av] MEDEN T ([facility]) Body mass index (BMI) [Ratio] 37.0 kg/m2 37.0 k g/m2 [facility] ([facility]) Body weight 229.00 [lb_av] 229.00 [lb_av] RASHAD Hugo ([facility]) Body height 66 [in_i] 66 [in_i] [facility] ([facility]) 5'6" Oxygen saturation in Arterial blood by Pulse oximetry 98 % 98 % [facility] ([facility]) Room Air [place] body weight 130 [lb_av] 130 [lb_av] RASHAD Hugo ([facility]) Body height 66 [in_i] 66 [in_i] [facility] ([facility]) 5'6" Patient Treatment Plan of Care Planned Activity Planned Date Details Description Data Source (s) NITROFURANTOIN, MACROCRYSTALS 25 MG / Ni trofurantoin, Monohydrate 75 MG Oral Capsule [Macrobid] 11/17/2020 12:00:00 AM EDT eC W1 ([facility]) NITROFURANTOIN, MACROCRYSTALS 25 MG / Ni trofurantoin, Monohydrate 75 MG Oral Capsule [Macrobid] 11/17/2020 12:00:00 AM EDT eC W1 ([facility]) NITROFURANTOIN, MACROCRYSTALS 25 MG / Ni trofurantoin, Monohydrate 75 MG Oral Capsule [Macrobid] 11/17/2020 12:00:00 AM EDT eC W1 ([facility]) NITROFURANTOIN, MACROCRYSTALS 25 MG / Ni trofurantoin, Monohydrate 75 MG Oral Capsule [Macrobid] 11/17/2020 12:00:00 AM EDT eC W1 ([facility]) NITROFURANTOIN, MACROCRYSTALS 25 MG / Ni trofurantoin, Monohydrate 75 MG Oral Capsule [Macrobid] 11/17/2020 12:00:00 AM EDT eC W1 ([facility]) NITROFURANTOIN, MACROCRYSTALS 25 MG / Ni trofurantoin, Monohydrate 75 MG Oral Capsule [Macrobid] 11/17/2020 12:00:00 AM EDT eC W1 ([facility]) NITROFURANTOIN, MACROCRYSTALS 25 MG / Ni trofurantoin, Monohydrate 75 MG Oral Capsule [Macrobid] 11/17/2020 12:00:00 AM EDT eC W1 ([facility]) NITROFURANTOIN, MACROCRYSTALS 25 MG / Ni trofurantoin, Monohydrate 75 MG Oral Capsule [Macrobid] 11/17/2020 12:00:00 AM EDT eC W1 ([facility]) NITROFURANTOIN, MACROCRYSTALS 25 MG / Ni trofurantoin, Monohydrate 75 MG Oral Capsule [Macrobid] 11/17/2020 12:00:00 AM EDT eC W1 ([facility]) NITROFURANTOIN, MACROCRYSTALS 25 MG / Ni trofurantoin, Monohydrate 75 MG Oral Capsule [Macrobid] 11/17/2020 12:00:00 AM EDT eC W1 ([facility]) NITROFURANTOIN, MACROCRYSTALS 25 MG / Ni trofurantoin, Monohydrate 75 MG Oral Capsule [Macrobid] 11/17/2020 12:00:00 AM EDT eC W1 ([facility]) NITROFURANTOIN, MACROCRYSTALS 25 MG / Ni trofurantoin, Monohydrate 75 MG Oral Capsule [Macrobid] 11/17/2020 12:00:00 AM EDT eC W1 ([facility]) Mupirocin 0.02 MG/MG Topical Ointment 11/14/2020 12:00:00 AM EDT eCW1 ([facility]) ferric carboxymaltose 50 MG/ML Injectable Solution [In jectafer] 11/14/2020 12:00:00 AM EDT eCW1 (Formerly [facility]) Mupirocin 0.02 MG/MG Topical Ointment 11/14/2020 12:00:00 AM EDT eCW1 ([facility]) ferric carboxymaltose 50 MG/ML Injectable Solution [In jectafer] 11/14/2020 12:00:00 AM EDT eCW1 (Formerly [facility]) Mupirocin 0.02 MG/MG Topical Ointment 11/14/2020 12:00:00 AM EDT eCW1 ([facility]) ferric carboxymaltose 50 MG/ML Injectable Solution [In jectafer] 11/14/2020 12:00:00 AM EDT eCW1 ([facility]) Mupirocin 0.02 MG/MG Topical Ointment 11/14/2020 12:00:00 AM EDT eCW1 ([facility]) ferric carboxymaltose 50 MG/ML Injectable Solution [In jectafer] 11/14/2020 12:00:00 AM EDT eCW1 ([facility]ly [facility]) Mupirocin 0.02 MG/MG Topical Ointment 11/14/2020 12:00:00 AM EDT eCW1 ([facility]) ferric carboxymaltose 50 MG/ML Injectable Solution [In jectafer] 11/14/2020 12:00:00 AM EDT eCW1 ([facility]) Mupirocin 0.02 MG/MG Topical Ointment 11/14/2020 12:00:00 AM EDT eCW1 ([facility]) ferric carboxymaltose 50 MG/ML Injectable Solution [In jectafer] 11/14/2020 12:00:00 AM EDT eCW1 ([facility]) Mupirocin 0.02 MG/MG Topical Ointment 11/14/2020 12:00:00 AM EDT eCW1 ([facility]) ferric carboxymaltose 50 MG/ML Injectable Solution [In jectafer] 11/14/2020 12:00:00 AM EDT eCW1 (Formerly [facility]) Mupirocin 0.02 MG/MG Topical Ointment 11/14/2020 12:00:00 AM EDT eCW1 ([facility]) ferric carboxymaltose 50 MG/ML Injectable Solution [In jectafer] 11/14/2020 12:00:00 AM EDT eCW1 ([facility]) Mupirocin 0.02 MG/MG Topical Ointment 11/14/2020 12:00:00 AM EDT eCW1 ([facility]) ferric carboxymaltose 50 MG/ML Injectable Solution [In jectafer] 11/14/2020 12:00:00 AM EDT eCW1 ([facility]) Mupirocin 0.02 MG/MG Topical Ointment 11/14/2020 12:00:00 AM EDT eCW1 ([facility]) ferric carboxymaltose 50 MG/ML Injectable Solution [In jectafer] 11/14/2020 12:00:00 AM EDT eCW1 ([facility]) Mupirocin 0.02 MG/MG Topical Ointment 11/14/2020 12:00:00 AM EDT eCW1 ([facility]) ferric carboxymaltose 50 MG/ML Injectable Solution [In jectafer] 11/14/2020 12:00:00 AM EDT eCW1 ([facility]) Mupirocin 0.02 MG/MG Topical Ointment 11/14/2020 12:00:00 AM EDT eCW1 ([facility]) ferric carboxymaltose 50 MG/ML Injectable Solution [In jectafer] 11/14/2020 12:00:00 AM EDT eCW1 ([facility]) Mupirocin 0.02 MG/MG Topical Ointment 11/14/2020 12:00:00 AM EDT eCW1 ([facility]) ferric carboxymaltose 50 MG/ML Injectable Solution [In jectafer] 11/14/2020 12:00:00 AM EDT eCW1 ([facility]) Blood Glucose Test - 11/03/2020 12:00:00 AM EDT eCW1 ([facility]) Lancets - 11/03/2020 12:00:00 AM EDT e CW1 ([facility]) Glucometer 11/03/2020 12:00:00 AM EDT e CW1 ([facility]) Glucometer 11/03/2020 12:00:00 AM EDT e CW1 ([facility]) Blood Glucose Test - 11/03/2020 12:00:00 AM EDT eCW1 ([facility]) Lancets - 11/03/2020 12:00:00 AM EDT e CW1 ([facility]) Blood Glucose Test - 11/03/2020 12:00:00 AM EDT eCW1 ([facility]) Lancets - 11/03/2020 12:00:00 AM EDT e CW1 ([facility]) Glucometer 11/03/2020 12:00:00 AM EDT e CW1 ([facility]) 60 ACTUAT Fluticasone propionate 0.25 MG /ACTUAT / salmeterol 0.05 MG/ACTUAT Dry Powder Inhaler [Advair] 07/07/2020 12:00:00 AM EDT eCW1 ([facility]) 60 ACTUAT Fluticasone propionate 0.25 MG /ACTUAT / salmeterol 0.05 MG/ACTUAT Dry Powder Inhaler [Advair] 07/07/2020 12:00:00 AM EDT eCW1 ([facility]) 60 ACTUAT Fluticasone propionate 0.25 MG /ACTUAT / salmeterol 0.05 MG/ACTUAT Dry Powder Inhaler [Advair] 07/07/2020 12:00:00 AM EDT eCW1 ([facility]) 60 ACTUAT Fluticasone propionate 0.25 MG /ACTUAT / salmeterol 0.05 MG/ACTUAT Dry Powder Inhaler [Advair] 07/07/2020 12:00:00 AM EDT eCW1 ([facility]) 60 ACTUAT Fluticasone propionate 0.25 MG /ACTUAT / salmeterol 0.05 MG/ACTUAT Dry Powder Inhaler [Advair] 07/07/2020 12:00:00 AM EDT eCW1 ([facility]) 60 ACTUAT Fluticasone propionate 0.25 MG /ACTUAT / salmeterol 0.05 MG/ACTUAT Dry Powder Inhaler [Advair] 07/07/2020 12:00:00 AM EDT eCW1 ([facility]) 60 ACTUAT Fluticasone propionate 0.25 MG /ACTUAT / salmeterol 0.05 MG/ACTUAT Dry Powder Inhaler [Advair] 07/07/2020 12:00:00 AM EDT eCW1 ([facility]) 60 ACTUAT Fluticasone propionate 0.25 MG /ACTUAT / salmeterol 0.05 MG/ACTUAT Dry Powder Inhaler [Advair] 07/07/2020 12:00:00 AM EDT eCW1 ([facility]) 60 ACTUAT Fluticasone propionate 0.25 MG /ACTUAT / salmeterol 0.05 MG/ACTUAT Dry Powder Inhaler [Advair] 07/07/2020 12:00:00 AM EDT eCW1 ([facility]) 60 ACTUAT Fluticasone propionate 0.25 MG /ACTUAT / salmeterol 0.05 MG/ACTUAT Dry Powder Inhaler [Advair] 07/07/2020 12:00:00 AM EDT eCW1 ([facility]) 60 ACTUAT Fluticasone propionate 0.25 MG /ACTUAT / salmeterol 0.05 MG/ACTUAT Dry Powder Inhaler [Advair] 07/07/2020 12:00:00 AM EDT eCW1 ([facility]) 60 ACTUAT Fluticasone propionate 0.25 MG /ACTUAT / salmeterol 0.05 MG/ACTUAT Dry Powder Inhaler [Advair] 07/07/2020 12:00:00 AM EDT eCW1 ([facility]) POLYETHYLENE GLYCOL 3350 142 MG/ML Oral Solution [Dawn lax] 05/26/2020 12:00:00 AM EDT eCW1 (Formerly [facility]) POLYETHYLENE GLYCOL 3350 142 MG/ML Oral Solution [Dawn lax] 05/26/2020 12:00:00 AM EDT eCW1 (Formerly [facility]) POLYETHYLENE GLYCOL 3350 142 MG/ML Oral Solution [Dawn lax] 05/26/2020 12:00:00 AM EDT eCW1 (Formerly [facility]) POLYETHYLENE GLYCOL 3350 142 MG/ML Oral Solution [Dawn lax] 05/26/2020 12:00:00 AM EDT eCW1 (Formerly [facility]) POLYETHYLENE GLYCOL 3350 142 MG/ML Oral Solution [Dawn lax] 05/26/2020 12:00:00 AM EDT eCW1 (Formerly [facility]) POLYETHYLENE GLYCOL 3350 142 MG/ML Oral Solution [Dawn lax] 05/26/2020 12:00:00 AM EDT eCW1 (Formerly [facility]) POLYETHYLENE GLYCOL 3350 142 MG/ML Oral Solution [Dawn lax] 05/26/2020 12:00:00 AM EDT eCW1 (Formerly [facility]) POLYETHYLENE GLYCOL 3350 142 MG/ML Oral Solution [Dawn lax] 05/26/2020 12:00:00 AM EDT eCW1 (Formerly [facility]) POLYETHYLENE GLYCOL 3350 142 MG/ML Oral Solution [Dawn lax] 05/26/2020 12:00:00 AM EDT eCW1 (Formerly [facility]) POLYETHYLENE GLYCOL 3350 142 MG/ML Oral Solution [Dawn lax] 05/26/2020 12:00:00 AM EDT eCW1 (Formerly [facility]) Cyclobenzaprine hydrochloride 10 MG Oral Tablet 02/07/2020 12:00:00 AM EST eCW1 ([facility]) Cyclobenzaprine hydrochloride 10 MG Oral Tablet 02/07/2020 12:00:00 AM EST eCW1 ([facility]) Cyclobenzaprine hydrochloride 10 MG Oral Tablet 02/07/2020 12:00:00 AM EST eCW1 ([facility]) Cyclobenzaprine hydrochloride 5 MG Oral Tablet 02/07/2020 12:00:00 AM EST eCW1 ([facility]) Amitriptyline Hydrochloride 25 MG Oral Tablet 12/06/2019 12:00:00 A M EDT eCW1 ([facility]) Amitriptyline Hydrochloride 25 MG Oral Tablet 12/06/2019 12:00:00 A M EDT eCW1 ([facility]) Amitriptyline Hydrochloride 25 MG Oral Tablet 12/06/2019 12:00:00 A M EDT eCW1 ([facility]) Amitriptyline Hydrochloride 25 MG Oral Tablet 12/06/2019 12:00:00 A M EDT eCW1 ([facility]) Amitriptyline Hydrochloride 25 MG Oral Tablet 12/06/2019 12:00:00 A M EDT eCW1 ([facility]) Amitriptyline Hydrochloride 25 MG Oral Tablet 12/06/2019 12:00:00 A M EDT eCW1 ([facility]) Alprazolam 1 MG Oral Tablet MARILIA ([facility]) Amoxicillin 500 MG / Clavulanate 125 MG Oral Tablet MARILIA ([facility]) cefdinir 300 MG Oral Capsule MARILIA ([facility]) Ciprofloxacin 250 MG Oral Tablet MARILIA ([facility]) Doxycycline Monohydrate 100 MG Oral Capsule MARILIA ([facility]) 0.3 ML Enoxaparin sodium 100 MG/ML Prefilled Syringe MARILIA ([facility]) Estradiol 0.1 MG/ML Vaginal Cream MARILIA ([facility]) glimepiride 1 MG Oral Tablet MARILIA ([facility]) glimepiride 2 MG Oral Tablet MARILIA ([facility]) Methylprednisolone 2 MG Oral Tablet [Medrol] MARILIA ([facility]) Methylprednisolone 4 MG Oral Tablet MARILIA ([facility]) Oxycodone Hydrochloride 5 MG Oral Tablet MARILIA ([facility]) Acetaminophen 325 MG / Oxycodone Hydrochloride 5 MG Oral Tablet MARILIA ([facility]) Prednisone 20 MG Oral Tablet MARILIA ([facility]) tramadol hydrochloride 50 MG Oral Tablet MARILIA ([facility]) glimepiride 1 MG Oral Tablet MARILIA ([facility]) glimepiride 2 MG Oral Tablet MARILIA ([facility]) 0.3 ML Enoxaparin sodium 100 MG/ML Prefilled Syringe MARILIA ([facility]) Amoxicillin 500 MG / Clavulanate 125 MG Oral Tablet MARILIA ([facility]) Ciprofloxacin 250 MG Oral Tablet MARILIA ([facility]) Estradiol 0.1 MG/ML Vaginal Cream MARILIA ([facility]) Doxycycline Monohydrate 100 MG Oral Capsule MARILIA ([facility]) Methylprednisolone 2 MG Oral Tablet [Medrol] MARILIA ([facility]) Methylprednisolone 4 MG Oral Tablet MARILIA ([facility]) Oxycodone Hydrochloride 5 MG Oral Tablet MARILIA ([facility]) tramadol hydrochloride 50 MG Oral Tablet MARILIA ([facility]) Acetaminophen 325 MG / Oxycodone Hydrochloride 5 MG Oral Tablet MARILIA ([facility]) Prednisone 20 MG Oral Tablet MARILIA ([facility]) Alprazolam 1 MG Oral Tablet MARILIA ([facility]) Amoxicillin 500 MG / Clavulanate 125 MG Oral Tablet MARILIA ([facility]) cefdinir 300 MG Oral Capsule MARILIA ([facility]) Ciprofloxacin 250 MG Oral Tablet MARILIA ([facility]) Doxycycline Monohydrate 100 MG Oral Capsule MARILIA ([facility]) 0.3 ML Enoxaparin sodium 100 MG/ML Prefilled Syringe MARILIA ([facility]) Estradiol 0.1 MG/ML Vaginal Cream MARILIA ([facility]) Methylprednisolone 2 MG Oral Tablet [Medrol] MARILIA ([facility]) Methylprednisolone 4 MG Oral Tablet MARILIA ([facility]) Oxycodone Hydrochloride 5 MG Oral Tablet MARILIA ([facility]) Acetaminophen 325 MG / Oxycodone Hydrochloride 5 MG Oral Tablet MARILIA ([facility]) Prednisone 20 MG Oral Tablet MARILIA ([facility]) tramadol hydrochloride 50 MG Oral Tablet MARILIA ([facility]) Alprazolam 1 MG Oral Tablet MARILIA ([facility]) Amoxicillin 500 MG / Clavulanate 125 MG Oral Tablet MARILIA ([facility]) cefdinir 300 MG Oral Capsule MARILIA ([facility]) Ciprofloxacin 250 MG Oral Tablet MARILIA ([facility]) Doxycycline Monohydrate 100 MG Oral Capsule MARILIA ([facility]) 0.3 ML Enoxaparin sodium 100 MG/ML Prefilled Syringe MARILIA ([facility]) Estradiol 0.1 MG/ML Vaginal Cream MARILIA ([facility]) Methylprednisolone 2 MG Oral Tablet [Medrol] MARILIA ([facility]) Methylprednisolone 4 MG Oral Tablet MARILIA ([facility]) Oxycodone Hydrochloride 5 MG Oral Tablet MARILIA ([facility]) Acetaminophen 325 MG / Oxycodone Hydrochloride 5 MG Oral Tablet MARILIA ([facility]) Prednisone 20 MG Oral Tablet MARILIA ([facility]) tramadol hydrochloride 50 MG Oral Tablet MARILIA ([facility]) Alprazolam 1 MG Oral Tablet MARILIA ([facility]) Amoxicillin 500 MG / Clavulanate 125 MG Oral Tablet MARILIA ([facility]) cefdinir 300 MG Oral Capsule MARILIA ([facility]) Ciprofloxacin 250 MG Oral Tablet MARILIA ([facility]) Doxycycline Monohydrate 100 MG Oral Capsule MARILIA ([facility]) 0.3 ML Enoxaparin sodium 100 MG/ML Prefilled Syringe MARILIA ([facility]) Estradiol 0.1 MG/ML Vaginal Cream MARILIA ([facility]) Methylprednisolone 2 MG Oral Tablet [Medrol] MARILIA ([facility]) Methylprednisolone 4 MG Oral Tablet MARILIA ([facility]) Oxycodone Hydrochloride 5 MG Oral Tablet MARILIA ([facility]) Acetaminophen 325 MG / Oxycodone Hydrochloride 5 MG Oral Tablet MAR[place] ([facility]) Prednisone 20 MG Oral Tablet MAR[place]IA ([facility]) tramadol hydrochloride 50 MG Oral Tablet MAR[place] ([facility]) Alprazolam 1 MG Oral Tablet MARILIA ([facility]) Amoxicillin 500 MG / Clavulanate 125 MG Oral Tablet MARILIA ([facility]) cefdinir 300 MG Oral Capsule MARILIA ([facility]) Ciprofloxacin 250 MG Oral Tablet MAR[place]IA ([facility]) Doxycycline Monohydrate 100 MG Oral Capsule MARILIA ([facility]) 0.3 ML Enoxaparin sodium 100 MG/ML Prefilled Syringe MARILIA ([facility]) Estradiol 0.1 MG/ML Vaginal Cream MARILIA ([facility]) Methylprednisolone 2 MG Oral Tablet [Medrol] MARILIA ([facility]) Methylprednisolone 4 MG Oral Tablet MARILIA ([facility]) Oxycodone Hydrochloride 5 MG Oral Tablet MARILIA ([facility]) Acetaminophen 325 MG / Oxycodone Hydrochloride 5 MG Oral Tablet [facility] ([facility] [facility] Prednisone 20 MG Oral Tablet [facility] ([facility]) tramadol hydrochloride 50 MG Oral Tablet [facility] ([facility]) Amoxicillin 500 MG / Clavulanate 125 MG Oral Tablet [facility] ([facility]) Ciprofloxacin 250 MG Oral Tablet [facility] ([facility]) Cyclobenzaprine hydrochloride 5 MG Oral Tablet [facility] ([facility]) Doxycycline Monohydrate 100 MG Oral Capsule [facility] ([facility]) 0.3 ML Enoxaparin sodium 100 MG/ML Prefilled Syringe [facility] ([facility]) Estradiol 0.1 MG/ML Vaginal Cream [facility] ([facility]) glimepiride 1 MG Oral Tablet [facility] ([facility]) Methylprednisolone 2 MG Oral Tablet [Medrol] [facility] ([facility]) Methylprednisolone 4 MG Oral Tablet [facility] ([facility]) Oxycodone Hydrochloride 5 MG Oral Tablet [facility] ([facility]) Acetaminophen 325 MG / Oxycodone Hydrochloride 5 MG Oral Tablet [facility] ([facility]) Prednisone 20 MG Oral Tablet [facility] ([facility]) tramadol hydrochloride 50 MG Oral Tablet [facility] ([facility]) Amoxicillin 500 MG / Clavulanate 125 MG Oral Tablet [facility] ([facility]) Ciprofloxacin 250 MG Oral Tablet [facility] ([facility]) Cyclobenzaprine hydrochloride 5 MG Oral Tablet [facility] ([facility]) Doxycycline Monohydrate 100 MG Oral Capsule [facility] ([facility]) 0.3 ML Enoxaparin sodium 100 MG/ML Prefilled Syringe [facility] ([facility]) Estradiol 0.1 MG/ML Vaginal Cream [facility] ([facility]) glimepiride 1 MG Oral Tablet [facility] ([facility]) Methylprednisolone 2 MG Oral Tablet [Medrol] [facility] ([facility]) Methylprednisolone 4 MG Oral Tablet [facility] ([facility]) Oxycodone Hydrochloride 5 MG Oral Tablet [facility] ([facility]) Acetaminophen 325 MG / Oxycodone Hydrochloride 5 MG Oral Tablet [facility] ([facility]) Prednisone 20 MG Oral Tablet [facility] ([facility]) tramadol hydrochloride 50 MG Oral Tablet [facility] ([facility]) Amoxicillin 500 MG / Clavulanate 125 MG Oral Tablet [facility] ([facility]) Ciprofloxacin 250 MG Oral Tablet [facility] ([facility]) Doxycycline Monohydrate 100 MG Oral Capsule [facility] ([facility]) 0.3 ML Enoxaparin sodium 100 MG/ML Prefilled Syringe [facility] ([facility]) Estradiol 0.1 MG/ML Vaginal Cream [facility] ([facility]) glimepiride 1 MG Oral Tablet [facility] ([facility]) glimepiride 2 MG Oral Tablet [facility] ([facility]) Methylprednisolone 2 MG Oral Tablet [Medrol] [facility] ([facility]) Methylprednisolone 4 MG Oral Tablet [facility] ([facility]) Oxycodone Hydrochloride 5 MG Oral Tablet [facility] ([facility]) Acetaminophen 325 MG / Oxycodone Hydrochloride 5 MG Oral Tablet [facility] ([facility]) Prednisone 20 MG Oral Tablet [facility] ([facility]) tramadol hydrochloride 50 MG Oral Tablet [facility] ([facility]) Amoxicillin 500 MG / Clavulanate 125 MG Oral Tablet [facility] ([facility]) Ciprofloxacin 250 MG Oral Tablet [facility] ([facility]) Doxycycline Monohydrate 100 MG Oral Capsule [facility] ([facility]) 0.3 ML Enoxaparin sodium 100 MG/ML Prefilled Syringe [facility] ([facility]) Estradiol 0.1 MG/ML Vaginal Cream [facility] ([facility]) glimepiride 1 MG Oral Tablet [facility] ([facility]) glimepiride 2 MG Oral Tablet [facility] ([facility]) Methylprednisolone 2 MG Oral Tablet [Medrol] [facility] ([facility]) Methylprednisolone 4 MG Oral Tablet [facility] ([facility]) Oxycodone Hydrochloride 5 MG Oral Tablet [facility] ([facility]) Acetaminophen 325 MG / Oxycodone Hydrochloride 5 MG Oral Tablet [facility] ([facility]) Prednisone 20 MG Oral Tablet [facility] ([facility]) tramadol hydrochloride 50 MG Oral Tablet [facility] ([facility])
--- NOTE | 2020-12-29 15:43 | REP ---
INDICATION: CHEST PAIN. COMPARISON: None. TECHNIQUE: Single portable AP view of the chest was performed. FINDINGS: There is no acute infiltrate or pulmonary edema. Lungs are clear. The heart is not significantly enlarged. The mediastinal silhouette is unremarkable. The visualized osseous structures are intact. IMPRESSION: No acute pulmonary disease. <Electronically signed by Mariano Moses > 12/29/20 [id number]
--- OUTSIDE RECORDS SUMMARY | 2020-12-29 16:16 | CCD ---
Author Author [facility] Address Unknown Phone Unavailable Care Team Providers Care Instrument Repair Specialist Name Role Phone Jean-Pierre Ling MD Unavailable [...] Bolla, Jean-Pierre Dejesus MD Unavailable Unavailable Bolla, Jean-iPerre Dejesus MD Unavailable Unavailable Bolla, Jean-Pierre Dejesus [...] Jean-Pierre Dejesus MD Unavailable Unavailable Charlebois, A Erica RPA C Unavailable Unavailable Charlebois, A Erica RPA C Unavailable Unavailable Charlebois, A Erica RPA C Unavailable Unavailable Charlebois, A Erica RPA C Unavailable Unavailable Charlebois, A Erica RPA C Unavailable Unavailable Charlebois, A Erica RPA C Unavailable Unavailable Charlebois, A Erica RPA C Unavailable Unavailable Charlebois, A Erica RPA C Unavailable Unavailable Charlebois, A Erica RPA C Unavailable Unavailable Charlebois, A Erica RPA C Unavailable Unavailable Charlebois, A Erica RPA C Unavailable Unavailable Charlebois, A Erica RPA C Unavailable Unavailable Charlebois, A Erica RPA C Unavailable Unavailable Charlebois, A Erica RPA C Unavailable Unavailable Charlebois, A Erica RPA C Unavailable Unavailable Charlebois, A Erica RPA C Unavailable Unavailable Charlebois, A Erica RPA C Unavailable Unavailable Charlebois, A Erica RPA C Unavailable Unavailable Charlebois, A Erica RPA C Unavailable Unavailable Charlebois, A Erica RPA C Unavailable Unavailable Charlebois, A Erica RPA C Unavailable Unavailable Charlebois, A Erica RPA C Unavailable Unavailable Charlebois, A Erica RPA C Unavailable Unavailable Charlebois, A Erica RPA C Unavailable Unavailable Charlebois, A Erica RPA C Unavailable Unavailable Charlebois, A Erica RPA C Unavailable Unavailable Charlebois, A Erica RPA C Unavailable Unavailable Charlebois, A Erica RPA C Unavailable Unavailable Charlebois, A Erica RPA C Unavailable Unavailable Charlebois, A Erica RPA C Unavailable Unavailable Charlebois, A Erica RPA C Unavailable Unavailable Charlebois, A Erica RPA C Unavailable Unavailable Charlebois, A Erica RPA C Unavailable Unavailable Monica Bal MD [...] Unavailable Rojo, M Barratt PA Unavailable Unavailable Rooj, M Barratt PA Unavailable Unavailable Rojo, M [...] Gao MD Unavailable Unavailable Jumalon, M Mar TILE SORTER Unavailable Unavailable Jumalon, M Mar TILE SORTER Unavailable Unavailable Jumalon, M Mar TILE SORTER Unavailable Unavailable Jumalon, M Mar TILE SORTER Unavailable Unavailable Jumalon, M Mar TILE SORTER Unavailable Unavailable Jumalon, M Mar TILE SORTER Unavailable Unavailable Jumalon, M Mar TILE SORTER Unavailable Unavailable Jumalon, M Mar TILE SORTER Unavailable Unavailable Jumalon, M Mar TILE SORTER Unavailable Unavailable Jumalon, M Mar TILE SORTER Unavailable Unavailable Jumalon, M Mar TILE SORTER Unavailable Unavailable Jumalon, M Mar TILE SORTER Unavailable Unavailable Jumalon, M Mar TILE SORTER Unavailable Unavailable Jumalon, M Mar TILE SORTER Unavailable Unavailable Jumalon, M Mar TILE SORTER Unavailable Unavailable Jumalon, M Mar TILE SORTER Unavailable Unavailable Jumalon, M Mar TILE SORTER Unavailable Unavailable Jumalon, M Mar TILE SORTER Unavailable Unavailable Jumalon, M Mar TILE SORTER Unavailable Unavailable Jumalon, M Mar TILE SORTER Unavailable Unavailable Jumalon, M Mar TILE SORTER Unavailable Unavailable Jumalon, M Mar TILE SORTER Unavailable Unavailable Jumalon, M Mar TILE SORTER Unavailable Unavailable Jumalon, M Mar TILE SORTER Unavailable Unavailable Jumalon, M Mar TILE SORTER Unavailable Unavailable Jumalon, M Mar TILE SORTER Unavailable Unavailable Jumalon, M Mar TILE SORTER Unavailable Unavailable Jumalon, M Mar TILE SORTER Unavailable Unavailable Jumalon, M Mar TILE SORTER Unavailable Unavailable Jumalon, M Mar TILE SORTER Unavailable Unavailable Rechlin, P Andrea DO Unavailable [...] is protected by Article 27-F of the [facility] Public Health law. If you continue you may have access to information: Regarding HIV / AIDS; Provided by facilities licensed or operated by the [facility] Office of Mental Health; or Provided by the [facility] Office for People With Developmental Disabilities. If such information is present, then the following [facility] mandated warning applies: This information has [...] law may result in a fine or longterm sentence or both. A general authorization for the release of medical or other information is NOT sufficient authorization for further disc losure. Family History Family Member Name Family Member Gender Family Member Status Date o f Status Description Data Source(s) Unknown Unknown Problem MEDENT ([facility], ) sister age 48 and another age 59 alive Encounters Encounter Providers Location Date Indications Data Source(s ) Unknown [address] [facility] [address] 12/26/2020 12:00:00 AM EDT [facility] Unknown [address] [facility] [address] 12/19/2020 12:00:00 AM EDT [facility] [place] Unknown [address] [facility] [address] 12/19/2020 12:00:00 AM EDT [facility]CW1 ([facility]) Unknown [address] [facility] [address] 12/19/2020 12:00:00 AM EDT eCW1 ([facility]) Unknown [address] [facility] [address] 12/16/2020 12:00:00 AM EDT eCW1 ([facility]) Unknown [address] [facility] [address] 12/15/2020 12:00:00 AM EDT eCW1 ([facility]) Unknown [address] [facility] [address] 12/05/2020 12:00:00 AM EDT eCW1 ([facility]) Unknown [address] [facility] [place] [address] 11/18/2020 12:00:00 AM EDT [facility]CW1 ([facility]) Unknown [address] [facility] [place] [address] 11/17/2020 12:00:00 AM EDT eCW1 ([facility]) Outpatient [address] [facility] [address] 11/14/2020 12:00:00 AM EDT eCW1 ([facility]) Unknown [address] [facility] [address] 11/14/2020 12:00:00 AM EDT eCW1 ([facility]) Unknown [address] [facility] [address] 11/14/2020 12:00:00 AM EDT eCW1 ([facility]) Unknown [address] [facility] [address] 11/13/2020 12:00:00 AM EDT eCW1 ([facility]) Unknown [address] [facility] [place] [address] 11/04/2020 12:00:00 AM EDT eCW1 ([facility]) Unknown [address] [facility] [address] 11/03/2020 12:00:00 AM EDT eCW1 ([facility]) Oleg Lnig MD: [address] [address], [facility] [place] [address], Ph. Attender: Oleg Ling MD [place] - [facility] - Main Office 10/24/2020 12:00:00 AM EDT MARILIA ([facility]) Office Visit Attender: Bren RODRIGES Physical Therapy 01:15:00 PM EDT MEDENT ([facility]) Outpatient [address] [facility] [address] 10/21/2020 12:00:00 AM EDT eCW1 ([facility]) Unknown [address] [facility] [address] 10/21/2020 12:00:00 AM EDT eCW1 ([facility]) Oleg Ling MD: [address], [place] [address], Ph. [phone] Attender: Oleg Ling MD [place] - [facility] 10/20/2020 12:00:00 AM EDT MARILIA ([facility]) Oleg Ling MD: [address], [place] [address], Ph. [phone] Attender: Oleg Ling MD [place] - [facility] 10/20/2020 12:00:00 AM EDT MARILIA ([facility]) Outpatient Attender: Erica Glover/Riri/Angel adame/Avery 10/15/2020 01:00:00 PM EDT EVELYNE ([facility]) Mar Smith, SAFETY SCIENTIST: [address], [place] [address], Ph. Attender: Mar Smith [facility] 10/15/2020 12:00:00 AM EDT VANCE FLORES ([facility]) Mar Smith, SAFETY SCIENTIST: [address], [address], [place] [address], Ph. Attender: Mar Smith [facility] 10/15/2020 12:00:00 AM EDT VANCE FLORES ([facility]) Mar Smith, SAFETY SCIENTIST: [address], [place] [address], Ph. Attender: Mar Smith [facility] - [facility] - Main Office 10/15/2020 12:00:00 AM EDT ATHE MARK ([facility]) Outpatient Attender: Andrea Sterling/Riri/Mil/Joe ndprabha 10/08/2020 09:30:00 AM EDT MEDENT [facility] Unknown [address] [facility] [address] 10/07/2020 12:00:00 AM EDT eCW1 ([facility]) Outpatient [address] [facility] [place] [address] 09/22/2020 12:00:00 AM EDT eCW1 ([facility]) Unknown [address] [place] [address] [place] [address] 09/04/2020 12:00:00 AM EDT eCW1 ([facility]) Unknown [address] [place] [address] [place] [address] 08/28/2020 12:00:00 AM EDT [facility]CW1 [facility] Unknown [address] [facility] [place] [address] 08/27/2020 12:00:00 AM EDT eCW1 ([facility]) Unknown [address] [facility] [place] [address] 08/25/2020 12:00:00 AM EDT eCW1 ([facility]) Unknown [address] [place] [address] [place] [address] 08/14/2020 12:00:00 AM EDT eCW1 ([facility]) Outpatient Attender: Amira Garg 08/11/2020 11:00:00 PM E DT Bag Bleacher [facility] Outpatient Attender: Amira Harrell/ [facility] 04:00:00 PM EDT MEDENT ([facility] Oleg Ling MD: [address] [address], [facility] [place] [address], Ph. [phone] Attender: Oleg Ling MD [place] - [facility] 08/11/2020 12:00:00 AM EDT MARILIA ([facility]) Oleg Ling MD: [address], [place] [address], Ph. [phone] Attender: Oleg Ling MD [place] - [facility] 08/11/2020 12:00:00 AM EDT MARILIA ([facility]) Oleg Ling MD: [address], [place] [address], Ph. [phone] Attender: Oleg Ling MD [place] - [facility] 08/11/2020 12:00:00 AM EDT MARILIA ([facility]) Oleg Ling MD: [address], [place] [address], Ph. [phone] Attender: Oleg Ling MD [place] - [facility] 08/11/2020 12:00:00 AM EDT MARILIA ([facility]) Mar Smith, SAFETY SCIENTIST: [address], [place] [address], Ph. Attender: Mar Smith [facility] 08/06/2020 12:00:00 AM EDT ATHJaime NA ([facility]) Mar Smith, SAFETY SCIENTIST: [address], [place] [address], Ph. Attender: Mar Smith [facility] - [facility] 08/06/2020 12:00:00 AM EDT ATHE MARK ([facility]) Mar Smith, SAFETY SCIENTIST: [address], [place] [address], Ph. Attender: Mar Smith [facility] - [facility] 08/06/2020 12:00:00 AM EDT ATHE NA ([facility]) Mar Smith, SAFETY SCIENTIST: [address], [place] [address], Ph. Attender: Mar Smith [facility] - [facility] 08/06/2020 12:00:00 AM EDT ATHE NA ([facility]) Mar Smith, SAFETY SCIENTIST: [address], [place] [address], Ph. Attender: Mar Smith [facility] - [facility] 08/06/2020 12:00:00 AM EDT ATHE NA ([facility]) Office Visit Attender: Bren RODRIGES Physical Therapy 10:30:00 AM EDT MEDENT ([facility]) Outpatient Attender: Monica Bal MD 07/14/2020 11:00:00 [facility] Attender: Monica Bal MD Bradley/ Steffen torres 07/14/2020 03:30:00 PM EDT MEDENT ([facility]) Unknown [address] [facility], [place] [address] 07/08/2020 12:00:00 AM EDT eCW1 ([facility]) Unknown [address] [facility] [place] [address] 07/07/2020 12:00:00 AM EDT eCW1 ([facility]) Outpatient [address] [facility] Y [address] 07/04/2020 12:00:00 AM EDT eCW1 ([facility]) Unknown [address] [facility] [address] 07/04/2020 12:00:00 AM EDT eCW1 ([facility]) Unknown [address] [facility] [address] 07/04/2020 12:00:00 AM EDT eCW1 ([facility]) Unknown [address] [facility] [address] 07/04/2020 12:00:00 AM EDT eCW1 ([facility]) Unknown [address] [facility] [address] 07/03/2020 12:00:00 AM EDT eCW1 ([facility]) Unknown [address] [facility] [address] 06/30/2020 12:00:00 AM EDT eCW1 ([facility]) Unknown [address] [facility] [address] 06/25/2020 12:00:00 AM EDT eCW1 ([facility]) Unknown [address] [facility] [address] 06/19/2020 12:00:00 AM EDT eCW1 ([facility]) Unknown [address] [facility] [address] 06/19/2020 12:00:00 AM EDT eCW1 ([facility]) Unknown [address] [facility] [place] [address] 06/17/2020 12:00:00 AM EDT eCW1 ([facility]) Unknown [address] [facility] [address] 06/13/2020 12:00:00 AM EDT eCW1 ([facility]) Unknown [address] [facility] [address] 06/09/2020 12:00:00 AM EDT eCW1 ([facility]) Unknown [address] [facility] [address] 06/04/2020 12:00:00 AM EDT eCW1 ([facility]) Unknown [address] [facility] [address] 05/26/2020 12:00:00 AM EDT eCW1 ([facility]) Outpatient [address] [facility] [place] [address] 05/26/2020 12:00:00 AM EDT eCW1 ([facility]) Unknown [address] [facility] [place] [address] 05/20/2020 12:00:00 AM EDT eCW1 ([facility]) Unknown [address] [facility] [place] [address] 05/15/2020 12:00:00 AM EST [facility]CW1 [facility] Outpatient [address] [facility] [place] [address] 05/12/2020 12:00:00 AM EST eCW1 ([facility]) Mar Smith, SAFETY SCIENTIST: [address], [place] [address], Ph. Attender: Mar Smith [facility] 04/15/2020 12:00:00 AM EST ATHE NA ([facility]) Mar Smith, SAFETY SCIENTIST: [address], [place] [address], Ph. Attender: Mar Smith [facility] 04/15/2020 12:00:00 AM EST ATHE NA ([facility]) Mar Smith, SAFETY SCIENTIST: [address], [place] [address], Ph. Attender: Mar Smith [facility] 04/15/2020 12:00:00 AM EST ATHE NA ([facility]) Mar Smith, SAFETY SCIENTIST: [address], [place] [address], Ph. Attender: Mar Smith [facility] 04/15/2020 12:00:00 AM EST ATHE NA ([facility]) Mar Smith, SAFETY SCIENTIST: [address], [address], [place] [address], Ph. Attender: Mar Smith [facility] 04/15/2020 12:00:00 AM EST ATHE NA ([facility]) Mar Smith, SAFETY SCIENTIST: [address], [place] [address], Ph. Attender: Mar Smith [facility] 04/15/2020 12:00:00 AM EST ATHE NA ([facility]) Outpatient Attender: Monica Bal MD 04/07/2020 09:05 :00 PM EST [facility] Outpatient Attender: Monica Bal MD Bradley/ Steffen donovanca 04/07/2020 12:15:00 PM EST MEDENT [facility] Oleg Ling MD: [address], [place] [address], Ph. Attender: Oleg Ling MD [facility] 03/31/2020 12:00:00 AM EST MARILIA ([facility]) Oleg Ling MD: [address], [place] [address], Ph. Attender: Oleg Ling MD [place] - [facility] 03/31/2020 12:00:00 AM EST MARILIA ([facility]) Oleg Ling MD: [address], [place] [address], Ph. Attender: Oleg Ling MD [place] - [facility] 03/31/2020 12:00:00 AM EST MARILIA ([facility]) Oleg Ling MD: [address], [place] [address], Ph. Attender: Oleg Ling MD [place] - [facility] 03/31/2020 12:00:00 AM EST MARILIA ([facility]) Oleg Ling MD: [address], [place] [address], Ph. Attender: Oleg Ling MD [place] - [facility] 03/31/2020 12:00:00 AM EST MARILIA ([facility]) Oleg Ling MD: [address], [place] [address], Ph. Attender: Oleg CHAIREZ - [facility] 03/31/2020 12:00:00 AM EST MARILIA ([facility]) Oleg Ling MD: [address], [place] [address], Ph. Attender: Oleg Ling MD [place] - [facility] 03/31/2020 12:00:00 AM EST MARILIA ([facility]) OFFICE OUTPATIENT VISIT 15 MINUTES Attender: Bren RODRIGES Physical Therapy 03/27/2020 12:45:00 PM EST MEDENT ([facility]) Oleg Ling MD: [address], [place] [address], Ph. [phone] Attender: Oleg Ling MD [place] - [facility] 03/26/2020 12:00:00 AM EST MARILIA ([facility]) Oleg Ling MD: [address], [address], [place] [address], Ph. [phone] Attender: Oleg Ling MD [place] - [facility] 03/26/2020 12:00:00 AM EST MARILIA ([facility]) Oleg Ling MD: [address], [address], [place] [address], Ph. [phone] Attender: Oleg CHAIREZ - [facility] 03/26/2020 12:00:00 AM EST MARILIA ([facility]) Oleg Ling MD: [address], [address], [place] [address], Ph. [phone] Attender: Oleg Ling MD [place] - [facility] 03/26/2020 12:00:00 AM EST MARILIA ([facility]) Oleg Ling MD: [address], [address], [place] [address], Ph. [phone] Attender: Oleg Ling MD [place] - [facility] 03/26/2020 12:00:00 AM EST MARILIA ([facility]) Oleg Ling MD: [address], [address], [place] [address], Ph. [phone] Attender: Oleg Ling MD [place] - [facility] 03/26/2020 12:00:00 AM EST MARILIA ([facility]) Oleg Ling MD: [address], [address], [place] [address], Ph. [phone] Attender: Oleg Ling MD [place] - [facility] 03/26/2020 12:00:00 AM EST MARILIA ([facility]) Oleg Ling MD: [address], [place] [address], Ph. [phone] Attender: Oleg Ling MD [place] - [facility] 03/26/2020 12:00:00 AM EST MARILIA ([facility]) Mar Smith, SAFETY SCIENTIST: [address], [place] [address], Ph. Attender: Martorres Smith [facility] - [facility] 03/18/2020 12:00:00 AM EST ATHE NA ([facility]) Mar Smith, SAFETY SCIENTIST: [address], [place] [address], Ph. Attender: Mar Smith [facility] - [facility] 03/18/2020 12:00:00 AM EST ATHE NA ([facility]) Mar Smith, SAFETY SCIENTIST: [address], [place] [address], Ph. Attender: Mar Smith [facility] - [facility] 03/18/2020 12:00:00 AM EST ATHE NA ([facility]) Mar Smith, SAFETY SCIENTIST: [address], [place] [address], Ph. Attender: Marjaime Smith [facility] - [facility] 03/18/2020 12:00:00 AM EST ATHE NA ([facility]) Mar Rodriguez Sarah, SAFETY SCIENTIST: [address], [place] [address], Ph. Attender: Mar Smith [facility] - [facility] 03/18/2020 12:00:00 AM EST ATHE NA ([facility]) Mar Smith, SAFETY SCIENTIST: [address], [place] [address], Ph. Attender: Mar Smith [facility] - [facility] 03/18/2020 12:00:00 AM EST ATHE NA ([facility]) Mar Smith, SAFETY SCIENTIST: [address], [place] [address], Ph. Attender: Mar Smith [facility] - [facility] 03/18/2020 12:00:00 AM EST ATHE NA ([facility]) Mar Smith, SAFETY SCIENTIST: [address], [place] [address], Ph. Attender: Mar Smith [facility] - [facility] 03/18/2020 12:00:00 AM EST ATHE NA ([facility]) Mar Smith, SAFETY SCIENTIST: [address], [place] [address], Ph. Attender: Mar Smith [facility] - [facility] 03/18/2020 12:00:00 AM EST ATHE NA ([facility]) Unknown [address] [facility] [address] 03/14/2020 12:00:00 AM EST eCW1 ([facility]) Unknown [address] [facility] [address] 03/13/2020 12:00:00 AM EST eCW1 ([facility]) Outpatient Attender: Andrea Sterling/Riri/Mil/Joe nd 03/12/2020 09:00:00 AM EST MEDENT ([facility] actreanna, ) Mar Smith, SAFETY SCIENTIST: [address], [place] [address], Ph. Attender: Mar Smith [facility] - [facility] 02/14/2020 12:00:00 AM EST ATHE NA ([facility]) Mar Smith, SAFETY SCIENTIST: [address], [place] [address], Ph. Attender: Mar Smith [facility] - [facility] 02/14/2020 12:00:00 AM EST ATHE NA ([facility]) Mar Smith, SAFETY SCIENTIST: [address], [place] [address], Ph. Attender: Mar Smith [facility] 02/14/2020 12:00:00 AM EST ATHE NA ([facility]) Mar Smith, SAFETY SCIENTIST: [address], [place] [address], Ph. Attender: Mar Smith [facility] 02/14/2020 12:00:00 AM EST ATHE NA ([facility]) Mar Smith, SAFETY SCIENTIST: [address], [place] [address], Ph. Attender: Mar Smith [facility] - [facility] 02/14/2020 12:00:00 AM EST ATHE NA ([facility]) Mar Smith, SAFETY SCIENTIST: [address], [place] [address], Ph. Attender: Mar Smith [facility] - [facility] 02/14/2020 12:00:00 AM EST ATHE NA ([facility]) Mar Smith, SAFETY SCIENTIST: [address], [place] [address], Ph. Attender: Mar Smith [facility] - [facility] 02/14/2020 12:00:00 AM EST ATHE NA ([facility]) Mar Smith, SAFETY SCIENTIST: [address], [place] [address], Ph. Attender: Mar Smith [facility] 02/14/2020 12:00:00 AM EST ATHE NA ([facility]) Mar Smith, SAFETY SCIENTIST: [address], [place] [address], Ph. Attender: Mar Smith [facility] - [facility] 02/14/2020 12:00:00 AM EST ATHE NA ([facility]) Mar Smith, SAFETY SCIENTIST: [address], [place] [address], Ph. Attender: Mar Smith [facility] 02/14/2020 12:00:00 AM EST ATHE NA ([facility]) Unknown [address] [facility] [address] 02/13/2020 12:00:00 AM EST eCW1 ([facility]) Unknown [address] [facility] [address] 02/06/2020 12:00:00 AM EST eCW1 ([facility]) Outpatient Attender: Amira Garg 01/10/2020 11:00:[address] Membership Sales Representative [facility] Membership Sales Representative Outpatient Attender: Amira Harrell/ [facility] 12:30:00 PM EST EVELYNE [facility] Preadmit Attender: Cesario Gao MD 01/03/2020 12:00:00 AM EDT S/P R FEMUR FX [facility] S/P R FEMUR FX Outpatient Attender: Monica Bal MD 12/11/2019 11:00 :00 PM EDT Membership Sales Representative [facility] Membership Sales Representative Unknown [address] [facility] [address] 12/06/2019 12:00:00 AM EDT eCW1 ([facility]) Unknown [address] [facility] [address] 12/05/2019 12:00:00 AM EDT eCW1 ([facility]) Oleg Ling MD: [address], [place] [address], Ph. Attender: Oleg Ling MD [place] - [facility] 12/03/2019 12:00:00 AM EDT MARILIA ([facility]) Oleg Ling MD: [address]132 [address], [place] [address], Ph. Attender: Oleg Ling MD [place] - [facility] 12/03/2019 12:00:00 AM EDT MARILIA ([facility]) Oleg Ling MD: [address]65 [address], [place] [address], Ph. Attender: Oleg CHAIREZ - [facility] 12/03/2019 12:00:00 AM EDT MARILIA ([facility]) Oleg Ling MD: [address]16 [address], [address], [place] [address], Ph. Attender: Oleg iLng MD [place] - [facility] 12/03/2019 12:00:00 AM EDT MARILIA ([facility]) Oleg Ling MD: 62176 [address], [address], [place] [address], Ph. Attender: Oleg Ling MD [place] - [facility] 12/03/2019 12:00:00 AM EDT MARILIA ([facility]) Oleg Ling MD: [address]01 [address], [address], [place] [address], Ph. Attender: Oleg Ling MD [place] - [facility] 12/03/2019 12:00:00 AM EDT MARILIA ([facility]) Oleg Ling MD: 85108 [address], [address], [place] [address], Ph. Attender: Oleg Ling MD [place] - [facility] 12/03/2019 12:00:00 AM EDT MARILIA ([facility]) Oleg Ling MD: [address]81 [address], [address], [place] [address], Ph. Attender: Oleg CHAIREZ - [facility] 12/03/2019 12:00:00 AM EDT MARILIA ([facility]) Oleg Ling MD: [address]884 [address], [address], [place] [address], Ph. Attender: Oleg CHAIREZ - [facility] 12/03/2019 12:00:00 AM EDT MARILIA ([facility]) Oleg Ling MD: 56238 [address], [address], [place] [address], Ph. Attender: Oleg Ling MD [place] - [facility] 12/03/2019 12:00:00 AM EDT MARILIA ([facility]) Oleg Ling MD: 64657 [address], [address], [place] [address], Ph. Attender: Oleg Ling MD [place] - [facility] 12/03/2019 12:00:00 AM EDT MARILIA ([facility]) Oleg Ling MD: [address]96 [address], [address], [place] [address], Ph. [phone] Attender: Oleg Ling MD [place] - [facility] 11/28/2019 12:00:00 AM EDT MARILIA ([facility]) Oleg Ling MD: [address]329 [address], [address], [place] [address], Ph. [phone] Attender: Oleg Ling MD [place] - [facility] 11/28/2019 12:00:00 AM EDT MARILIA ([facility]) Oleg Ling MD: [address]103 [address], [address], [place] [address], Ph. [phone] Attender: Oleg Ling MD [place] - [facility] 11/28/2019 12:00:00 AM EDT MARILIA ([facility]) Oleg Ling MD: [address]11 [address], [address], [place] [address], Ph. [phone] Attender: Oleg Ling MD [place] - [facility] 11/28/2019 12:00:00 AM EDT MARILIA ([facility]) Oleg Ling MD: [address]291 [address], [address], [place] [address], Ph. [phone] Attender: Oleg Ling MD [place] - [facility] 11/28/2019 12:00:00 AM EDT MARILIA ([facility]) Oleg Ling MD: 96165 [address], [address], [place] [address], Ph. [phone] Attender: Oleg Ling MD [place] - [facility] 11/28/2019 12:00:00 AM EDT MARILIA ([facility]) Oleg Ling MD: 22659 [address], [address], [place] [address], Ph. [phone] Attender: Oleg Ling MD [place] - [facility] 11/28/2019 12:00:00 AM EDT MARILIA ([facility]) Oleg Ling MD: [address]808 [address], [address], [place] [address], Ph. [phone] Attender: Oleg Ling MD [place] - [facility] 11/28/2019 12:00:00 AM EDT MARILIA ([facility]) Oleg Ling MD: [address]8942 [address], [address], [place] [address], Ph. [phone] Attender: Oleg Ling MD [place] - [facility] 11/28/2019 12:00:00 AM EDT MARILIA ([facility]) Oleg Ling MD: [address]448 [address], [address], [place] [address], Ph. [phone] Attender: Oleg Ling MD [place] - [facility] 11/28/2019 12:00:00 AM EDT MARILIA ([facility]) Oleg Ling MD: [address]51 [address], [address], [place] [address], Ph. [phone] Attender: Oleg Ling MD [place] - [facility] 11/28/2019 12:00:00 AM EDT MARILIA ([facility]) Oleg Ling MD: [address]84 [address], [address], [place] [address], Ph. [phone] Attender: Oleg Ling MD [place] - [facility] - [facility] 11/28/2019 12:00:00 AM EDT MARILIA ([facility]) Oleg Ling MD: 30673 [address], [address], [place] [address], Ph. [phone] Attender: Oleg Ling MD [place] - [facility] - [facility] 11/23/2019 12:00:00 AM EDT MARILIA ([facility]) Oleg Ling MD: 25732 [address], [address], [place] [address], Ph. [phone] Attender: Oleg Ling MD [place] - [facility] - [facility] 11/23/2019 12:00:00 AM EDT MARILIA ([facility]) Oleg Ling MD: [address]4315 [address], [address], [place] [address], Ph. [phone] Attender: Oleg Ling MD [place] - [facility] - [facility] 11/23/2019 12:00:00 AM EDT MARILIA ([facility]) Oleg Ling MD: 03619 [address], [address], [place] [address], Ph. [phone] Attender: Oleg CHAIREZ - [facility] 11/23/2019 12:00:00 AM EDT MARILIA ([facility]) Oleg Ling MD: 04970 [address], [address], [place] [address], Ph. [phone] Attender: Oleg CHAIREZ - [facility] 11/23/2019 12:00:00 AM EDT MARILIA ([facility]) Oleg Ling MD: [address]1583 [address], [address], [place] [address], Ph. [phone] Attender: Oleg Ling MD [place] - [facility] 11/23/2019 12:00:00 AM EDT MARILIA ([facility]) Oleg Ling MD: 78363 [address], [address], [place] [address], Ph. [phone] Attender: Oleg Ling MD [place] - [facility] 11/23/2019 12:00:00 AM EDT MARILIA ([facility]) Oleg Ling MD: [address]4890 [address], [address], [place] [address], Ph. [phone] Attender: Oleg Ling MD [place] - [facility] 11/23/2019 12:00:00 AM EDT MARILIA ([facility]) Oleg Ling MD: 50908 [address], [address], [place] [address], Ph. [phone] Attender: Oleg Ling MD [place] - [facility] 11/23/2019 12:00:00 AM EDT MARILIA ([facility]) Oleg Ling MD: 32555 [address], [address], [place] [address], Ph. [phone] Attender: Oleg Ling MD [place] - [facility] 11/23/2019 12:00:00 AM EDT MARILIA ([facility]) Oleg Ling MD: 15045 [address], [address], [place] [address], Ph. [phone] Attender: Oleg Ling MD [place] - [facility] 11/23/2019 12:00:00 AM EDT MARILIA ([facility]) Oleg Ling MD: [address]4910 [address], [address], [place] [address], Ph. [phone] Attender: Oleg Ling MD [place] - [facility] 11/23/2019 12:00:00 AM EDT MARILIA ([facility]) Oleg Ling MD: 15589 [address], [place] [address], Ph. [phone] Attender: Oleg Ling MD [place] - [facility] 11/23/2019 12:00:00 AM EDT MARILIA ([facility]) Mar Rodriguez Sarah, SAFETY SCIENTIST: [address], [place] [address], Ph. Attender: Martorres Smith [facility] 11/22/2019 12:00:00 AM EDT ATHE NA ([facility]) Martorres Macedoroccopapi Smith, SAFETY SCIENTIST: [address]37 [address], [place] [address], Ph. Attender: Martorres Keaneabigailyue [facility] 11/22/2019 12:00:00 AM EDT ATHE NA ([facility]) Mar Mancandicemickie Smith, SAFETY SCIENTIST: [address]695 [address], [place] [address], Ph. Attender: Martorres Smith [facility] - [facility] 11/22/2019 12:00:00 AM EDT ATHE NA ([facility]) Mar Remingtonroccopapi Smith, SAFETY SCIENTIST: [address]23 [address], [place] [address], Ph. Attender: Mar Francisyue [facility] - [facility] 11/22/2019 12:00:00 AM EDT ATHE NA ([facility]) Mar Smith, SAFETY SCIENTIST: [address]176 [address], [address], [place] [address], Ph. Attender: Mar Smith [facility] - [facility] 11/22/2019 12:00:00 AM EDT ATHE NA ([facility]) Mar Smith, SAFETY SCIENTIST: [address]77 [address], [address], [place] [address], Ph. Attender: Mar Smith [facility] - [facility] 11/22/2019 12:00:00 AM EDT ATHE NA ([facility]) Mar Smith, SAFETY SCIENTIST: [address]70 [address], [place] [address], Ph. Attender: Mar Smith [facility] 11/22/2019 12:00:00 AM EDT ATHE NA ([facility]) Mar Smith, SAFETY SCIENTIST: [address]641 [address], [place] [address], Ph. Attender: Mar Smith [facility] - [facility] 11/22/2019 12:00:00 AM EDT ATHE NA ([facility]) Mar Smith, SAFETY SCIENTIST: [address]59 [address], [address], [place] [address], Ph. Attender: Mar Smith [facility] - [facility] 11/22/2019 12:00:00 AM EDT ATHE NA ([facility]) Mar Smith, SAFETY SCIENTIST: [address]012 [address], [place] [address], Ph. Attender: Mar Smith [facility] 11/22/2019 12:00:00 AM EDT ATHE NA ([facility]) Mar Smith, SAFETY SCIENTIST: [address]80 [address], [address], [place] [address], Ph. Attender: Mar Smith [facility] - [facility] 11/22/2019 12:00:00 AM EDT ATHE NA ([facility]) Mar Smith, SAFETY SCIENTIST: [address]20 [address], [address], [place] [address], Ph. Attender: Mar Smith [facility] - [facility] 11/22/2019 12:00:00 AM EDT ATHE NA ([facility]) Mar Smith, SAFETY SCIENTIST: [address]95 [address], [place] [address], Ph. Attender: Mar Smith [facility] - [facility] 11/22/2019 12:00:00 AM EDT ATHE NA ([facility]) Mar Smith, SAFETY SCIENTIST: [address]51 [address], [address], [place] [address], Ph. Attender: Mar Smith [facility] - [facility] 11/22/2019 12:00:00 AM EDT ATHE NA ([facility]) Oleg Lnig MD: 78272 [address], [address], [place] [address], Ph. Attender: Oleg Ling MD [place] - [facility] 11/07/2019 12:00:00 AM EDT MARILIA ([facility]) Oleg Ling MD: 87965 [address], [address], [place] [address], Ph. Attender: Oleg Ling MD [place] - [facility] 11/07/2019 12:00:00 AM EDT MARILIA ([facility]) Oleg Ling MD: 24750 [address], [address], [place] [address], Ph. Attender: Oleg Ling MD [place] - [facility] 11/07/2019 12:00:00 AM EDT MARILIA ([facility]) Oleg Ling MD: 06376 [address], [address], [place] [address], Ph. Attender: Oleg CHAIREZ - [facility] 11/07/2019 12:00:00 AM EDT MARILIA ([facility]) Oleg Ling MD: 11489 [address], [address], [place] [address], Ph. Attender: Oleg CHAIREZ - [facility] 11/07/2019 12:00:00 AM EDT MARILIA ([facility]) Oleg Ling MD: 27815 [address], [address], [place] [address], Ph. Attender: Oleg CHAIREZ - [facility] 11/07/2019 12:00:00 AM EDT MARILIA ([facility]) Oleg Ling MD: 35271 [address], [address], [place] [address], Ph. Attender: Oleg CHAIREZ - [facility] 11/07/2019 12:00:00 AM EDT MARILIA ([facility]) Oleg Ling MD: 22581 [address], [address], [place] [address], Ph. Attender: Oleg CHAIREZ - [facility] 11/07/2019 12:00:00 AM EDT MARILIA ([facility]) Oleg Ling MD: 42158 [address], [address], [place] [address], Ph. Attender: Oleg CHAIREZ - [facility] 11/07/2019 12:00:00 AM EDT MARILIA ([facility]) Oleg Ling MD: 50119 [address], [address], [place] [address], Ph. Attender: Oleg CHAIREZ - [facility] 11/07/2019 12:00:00 AM EDT MARILIA ([facility]) Oleg Ling MD: 42728 [address], [address], [place] [address], Ph. Attender: Oleg CHAIREZ - [facility] 11/07/2019 12:00:00 AM EDT MARILIA ([facility]) Oleg Lnig MD: 00098 [address], [address], [place] [address], Ph. Attender: Oleg CHAIREZ - [facility] 11/07/2019 12:00:00 AM EDT MARILIA ([facility]) Oleg Ling MD: 12697 [address], [address], [place] [address], Ph. Attender: Oleg CHAIREZ - [facility] 11/07/2019 12:00:00 AM EDT MARILIA ([facility]) Oleg Ling MD: 50862 [address], [address], [place] [address], Ph. Attender: Oleg Ling MD [place] - [facility] 11/07/2019 12:00:00 AM EDT MARILIA ([facility]) Oleg Ling MD: 54979 [address], [address], [place] [address], Ph. Attender: Oleg Ling MD [place] - [facility] 11/07/2019 12:00:00 AM EDT MARILIA ([facility]) Oleg Ling MD: 73314 [address], [address], [place] [address], Ph. [phone] Attender: Oleg Ling MD [place] - [facility] 11/02/2019 12:00:00 AM EDT MARILIA ([facility]) Oleg Ling MD: 44916 [address], [address], [place] [address], Ph. [phone] Attender: Oleg Ling MD [place] - [facility] 11/02/2019 12:00:00 AM EDT MARILIA ([facility]) Oleg Ling MD: 63145 [address], [address], [place] [address], Ph. [phone] Attender: Oleg Ling MD [place] - [facility] 11/02/2019 12:00:00 AM EDT MARILIA ([facility]) Oleg Ling MD: 96110 [address], [address], [place] [address], Ph. [phone] Attender: Oleg Ling MD [place] - [facility] 11/02/2019 12:00:00 AM EDT MARILIA ([facility]) Oleg Ling MD: 35431 [address], [address], [place] [address], Ph. [phone] Attender: Oleg CHAIREZ - [facility] 11/02/2019 12:00:00 AM EDT MARILIA ([facility]) Oleg Ling MD: 83925 [address], [address], [place] [address], Ph. [phone] Attender: Oleg Ling MD [place] - [facility] 11/02/2019 12:00:00 AM EDT MARILIA ([facility]) Oleg Ling MD: 02155 [address], [address], [place] [address], Ph. [phone] Attender: Oleg Ling MD [place] - [facility] 11/02/2019 12:00:00 AM EDT MARILIA ([facility]) Oleg Ling MD: 39131 [address], [address], [place] [address], Ph. [phone] Attender: Oleg Ling MD [place] - [facility] 11/02/2019 12:00:00 AM EDT MARILIA ([facility]) Oleg Ling MD: 73053 [address], [address], [place] [address], Ph. [phone] Attender: Oleg Ling MD [place] - [facility] 11/02/2019 12:00:00 AM EDT MARILIA ([facility]) Oleg Ling MD: 43233 [address], [address], [place] [address], Ph. [phone] Attender: Oleg Ling MD [place] - [facility] 11/02/2019 12:00:00 AM EDT MARILIA ([facility]) Oleg Ling MD: 35208 [address], [address], [place] [address], Ph. [phone] Attender: Oleg Ling MD [place] - [facility] 11/02/2019 12:00:00 AM EDT MARILIA ([facility]) Oleg Ling MD: 72962 [address], [place] [address], Ph. [phone] Attender: Oleg Ling MD [place] - [facility] 11/02/2019 12:00:00 AM EDT MARILIA ([facility]) Oleg Ling MD: 01758 [address], [address], [place] [address], Ph. [phone] Attender: Oleg Ling MD [facility] 11/02/2019 12:00:00 AM EDT MARILIA ([facility]) Oleg Ling MD: 79511 [address], [place] [address], Ph. [phone] Attender: Oleg Ling MD [facility] 11/02/2019 12:00:00 AM EDT MARILIA ([facility]) Oleg Ling MD: [id number], [address], [place] [address], Ph. [phone] Attender: Oleg Ling MD [facility] 11/02/2019 12:00:00 AM EDT MARILIA ([facility]) Oleg Ling MD: [id number], [place] [address], Ph. [phone] Attender: Oleg Ling MD [facility] 11/02/2019 12:00:00 AM EDT MARILIA ([facility]) Immunizations Vaccine Date Status Description Data Source(s) COVID-19 VACCINE Moderna 11/05/2020 12:00:00 AM EDT completed [facility] Vaccine Series Complete: YESThis Data wa s Submitted to [facility] Via [employer]. COVID-19 VACCINE Moderna 10/01/2020 12:00:00 AM EDT completed [facility] Vaccine Series Complete: NOThis Data was Submitted to [facility] Via [employer]. Medications Medication Brand Name Start Date Product Form Dose Route Admi nistrative Instructions Pharmacy Instructions Status Indications Reaction Description Data Source(s) NITROFURANTOIN, MACROCRYSTALS 25 MG / Ni trofurantoin, Monohydrate 75 MG Oral Capsule [Macrobid] Macrobid 100 MG Macrobid 100 MG 11/17/2020 12:00:00 AM EDT active Macrobid 100 MG eCW1 ([facility]) NITROFURANTOIN, MACROCRYSTALS 25 MG / Ni trofurantoin, Monohydrate 75 MG Oral Capsule [Macrobid] Macrobid 100 MG Macrobid 100 MG 11/17/2020 12:00:00 AM EDT active Macrobid 100 MG eCW1 ([facility]) NITROFURANTOIN, MACROCRYSTALS 25 MG / Ni trofurantoin, Monohydrate 75 MG Oral Capsule [Macrobid] Macrobid 100 MG Macrobid 100 MG 11/17/2020 12:00:00 AM EDT active Macrobid 100 MG eCW1 ([facility]) NITROFURANTOIN, MACROCRYSTALS 25 MG / Ni trofurantoin, Monohydrate 75 MG Oral Capsule [Macrobid] Macrobid 100 MG Macrobid 100 MG 11/17/2020 12:00:00 AM EDT active Macrobid 100 MG eCW1 ([facility]) NITROFURANTOIN, MACROCRYSTALS 25 MG / Ni trofurantoin, Monohydrate 75 MG Oral Capsule [Macrobid] Macrobid 100 MG Macrobid 100 MG 11/17/2020 12:00:00 AM EDT active Macrobid 100 MG eCW1 ([facility]) NITROFURANTOIN, MACROCRYSTALS 25 MG / Ni trofurantoin, Monohydrate 75 MG Oral Capsule [Macrobid] Macrobid 100 MG Macrobid 100 MG 11/17/2020 12:00:00 AM EDT active Macrobid 100 MG eCW1 ([facility]) NITROFURANTOIN, MACROCRYSTALS 25 MG / Ni trofurantoin, Monohydrate 75 MG Oral Capsule [Macrobid] Macrobid 100 MG Macrobid 100 MG 11/17/2020 12:00:00 AM EDT active Macrobid 100 MG eCW1 ([facility]) NITROFURANTOIN, MACROCRYSTALS 25 MG / Ni trofurantoin, Monohydrate 75 MG Oral Capsule [Macrobid] Macrobid 100 MG Macrobid 100 MG 11/17/2020 12:00:00 AM EDT active Macrobid 100 MG eCW1 ([facility]) NITROFURANTOIN, MACROCRYSTALS 25 MG / Ni trofurantoin, Monohydrate 75 MG Oral Capsule [Macrobid] Macrobid 100 MG Macrobid 100 MG 11/17/2020 12:00:00 AM EDT active Macrobid 100 MG eCW1 ([facility]) NITROFURANTOIN, MACROCRYSTALS 25 MG / Ni trofurantoin, Monohydrate 75 MG Oral Capsule [Macrobid] Macrobid 100 MG Macrobid 100 MG 11/17/2020 12:00:00 AM EDT active Macrobid 100 MG eCW1 ([facility]) NITROFURANTOIN, MACROCRYSTALS 25 MG / Ni trofurantoin, Monohydrate 75 MG Oral Capsule [Macrobid] Macrobid 100 MG Macrobid 100 MG 11/17/2020 12:00:00 AM EDT active Macrobid 100 MG eCW1 ([facility]) NITROFURANTOIN, MACROCRYSTALS 25 MG / Ni trofurantoin, Monohydrate 75 MG Oral Capsule [Macrobid] Macrobid 100 MG Macrobid 100 MG 11/17/2020 12:00:00 AM EDT active Macrobid 100 MG eCW1 ([facility]) Mupirocin 0.02 MG/MG Topical Ointment Mupirocin 2 % Mupiroci n 2 % 11/14/2020 12:00:00 AM EDT active Mupiroci n 2 % eCW1 ([facility]) Mupirocin 0.02 MG/MG Topical Ointment Mupirocin 2 % Mupiroci n 2 % 11/14/2020 12:00:00 AM EDT active Mupiroci n 2 % eCW1 (On [facility] Of [facility]) Mupirocin 0.02 MG/MG Topical Ointment Mupirocin 2 % Mupiroci n 2 % 11/14/2020 12:00:00 AM EDT active Mupiroci n 2 % eCW1 (On [facility]) ferric carboxymaltose 50 MG/ML Injectabl e Solution [Injectafer] Injectafer 750 MG/15ML Injectafer 750 MG/15ML 11/14/2020 12:00:00 AM EDT active Injectafer 750 MG/15ML eCW1 (On [facility]) Mupirocin 0.02 MG/MG Topical Ointment Mupirocin 2 % Mupiroci n 2 % 11/14/2020 12:00:00 AM EDT active Mupiroci n 2 % eCW1 (On [facility] Of [facility]) ferric carboxymaltose 50 MG/ML Injectabl e Solution [Injectafer] Injectafer 750 MG/15ML Injectafer 750 MG/15ML 11/14/2020 12:00:00 AM EDT active Injectafer 750 MG/15ML eCW1 ([facility]) ferric carboxymaltose 50 MG/ML Injectabl e Solution [Injectafer] Injectafer 750 MG/15ML Injectafer 750 MG/15ML 11/14/2020 12:00:00 AM EDT active Injectafer 750 MG/15ML eCW1 ([facility]) Mupirocin 0.02 MG/MG Topical Ointment Mupirocin 2 % Mupiroci n 2 % 11/14/2020 12:00:00 AM EDT active Mupiroci n 2 % eCW1 ([facility]) Mupirocin 0.02 MG/MG Topical Ointment Mupirocin 2 % Mupiroci n 2 % 11/14/2020 12:00:00 AM EDT active Mupiroci n 2 % eCW1 ([facility]) ferric carboxymaltose 50 MG/ML Injectabl e Solution [Injectafer] Injectafer 750 MG/15ML Injectafer 750 MG/15ML 11/14/2020 12:00:00 AM EDT active Injectafer 750 MG/15ML eCW1 ([facility]) ferric carboxymaltose 50 MG/ML Injectabl e Solution [Injectafer] Injectafer 750 MG/15ML Injectafer 750 MG/15ML 11/14/2020 12:00:00 AM EDT active Injectafer 750 MG/15ML eCW1 ([facility]) ferric carboxymaltose 50 MG/ML Injectabl e Solution [Injectafer] Injectafer 750 MG/15ML Injectafer 750 MG/15ML 11/14/2020 12:00:00 AM EDT active Injectafer 750 MG/15ML eCW1 ([facility]) Mupirocin 0.02 MG/MG Topical Ointment Mupirocin 2 % Mupiroci n 2 % 11/14/2020 12:00:00 AM EDT active Mupiroci n 2 % eCW1 ([facility]) ferric carboxymaltose 50 MG/ML Injectabl e Solution [Injectafer] Injectafer 750 MG/15ML Injectafer 750 MG/15ML 11/14/2020 12:00:00 AM EDT active Injectafer 750 MG/15ML eCW1 ([facility]) ferric carboxymaltose 50 MG/ML Injectabl e Solution [Injectafer] Injectafer 750 MG/15ML Injectafer 750 MG/15ML 11/14/2020 12:00:00 AM EDT active Injectafer 750 MG/15ML eCW1 ([facility]) Mupirocin 0.02 MG/MG Topical Ointment Mupirocin 2 % Mupiroci n 2 % 11/14/2020 12:00:00 AM EDT active Mupiroci n 2 % eCW1 (On [facility]) ferric carboxymaltose 50 MG/ML Injectabl e Solution [Injectafer] Injectafer 750 MG/15ML Injectafer 750 MG/15ML 11/14/2020 12:00:00 AM EDT active Injectafer 750 MG/15ML eCW1 ([facility]) Mupirocin 0.02 MG/MG Topical Ointment Mupirocin 2 % Mupiroci n 2 % 11/14/2020 12:00:00 AM EDT active Mupiroci n 2 % eCW1 ([facility]) Mupirocin 0.02 MG/MG Topical Ointment Mupirocin 2 % Mupiroci n 2 % 11/14/2020 12:00:00 AM EDT active Mupiroci n 2 % eCW1 ([facility]) ferric carboxymaltose 50 MG/ML Injectabl e Solution [Injectafer] Injectafer 750 MG/15ML Injectafer 750 MG/15ML 11/14/2020 12:00:00 AM EDT active Injectafer 750 MG/15ML eCW1 ([facility]) ferric carboxymaltose 50 MG/ML Injectabl e Solution [Injectafer] Injectafer 750 MG/15ML Injectafer 750 MG/15ML 11/14/2020 12:00:00 AM EDT active Injectafer 750 MG/15ML eCW1 (On [facility]) ferric carboxymaltose 50 MG/ML Injectabl e Solution [Injectafer] Injectafer 750 MG/15ML Injectafer 750 MG/15ML 11/14/2020 12:00:00 AM EDT active Injectafer 750 MG/15ML eCW1 ([facility]) ferric carboxymaltose 50 MG/ML Injectabl e Solution [Injectafer] Injectafer 750 MG/15ML Injectafer 750 MG/15ML 11/14/2020 12:00:00 AM EDT active Injectafer 750 MG/15ML eCW1 ([facility]) Mupirocin 0.02 MG/MG Topical Ointment Mupirocin 2 % Mupiroci n 2 % 11/14/2020 12:00:00 AM EDT active Mupiroci n 2 % eCW1 ([facility]) Mupirocin 0.02 MG/MG Topical Ointment Mupirocin 2 % Mupiroci n 2 % 11/14/2020 12:00:00 AM EDT active Mupiroci n 2 % eCW1 ([facility]) Mupirocin 0.02 MG/MG Topical Ointment Mupirocin 2 % Mupiroci n 2 % 11/14/2020 12:00:00 AM EDT active Mupiroci n 2 % eCW1 ([facility]) magnesium citrate 58.2 MG/ML Oral Solution Magnesium Citrate 11/11/2020 12:00:00 AM EDT active MEDENT ([facility] ) POLYETHYLENE GLYCOL 3350 142 MG/ML Oral Solution [Miralax] M iralax 11/11/2020 12:00:00 AM EDT active M EDENT ([facility], ) Blood Glucose Test - Blood Glucose Test - 11/03/2020 12:00:00 AM EDT active Blood Glucose Test - eCW1 ([facility]) Blood Glucose Test - Blood Glucose Test - 11/03/2020 12:00:00 AM EDT active Blood Glucose Test - eCW1 ([facility]) Blood Glucose Test - Blood Glucose Test - 11/03/2020 12:00:00 AM EDT active Blood Glucose Test - eCW1 ([facility]) Lancets - Lancets - 11/03/2020 12:00:00 AM EDT act андрей Lancets - eCW1 ([facility]) Glucometer UNK 11/03/2020 12:00:00 AM EDT active Glucometer eCW1 ([facility]) Glucometer UNK 11/03/2020 12:00:00 AM EDT active Glucometer eCW1 ([facility]) Glucometer UNK 11/03/2020 12:00:00 AM EDT active Glucometer eCW1 ([facility]) Glucometer UNK 11/03/2020 12:00:00 AM EDT active Glucometer eCW1 ([facility]) Blood Glucose Test - Blood Glucose Test - 11/03/2020 12:00:00 AM EDT active Blood Glucose Test - eCW1 ([facility]) Glucometer UNK 11/03/2020 12:00:00 AM EDT active Glucometer eCW1 ([facility]) Lancets - Lancets - 11/03/2020 12:00:00 AM EDT act андрей Lancets - eCW1 ([facility]) Blood Glucose Test - Blood Glucose Test - 11/03/2020 12:00:00 AM EDT active Blood Glucose Test - eCW1 ([facility]) Lancets - Lancets - 11/03/2020 12:00:00 AM EDT act андрей Lancets - eCW1 ([facility]) Lancets - Lancets - 11/03/2020 12:00:00 AM EDT act андрей Lancets - eCW1 ([facility]) Lancets - Lancets - 11/03/2020 12:00:00 AM EDT act андрей Lancets - eCW1 ([facility]) Lancets - Lancets - 11/03/2020 12:00:00 AM EDT act андрей Lancets - eCW1 ([facility]) Glucometer UNK 11/03/2020 12:00:00 AM EDT active Glucometer eCW1 ([facility]) Blood Glucose Test - Blood Glucose Test - 11/03/2020 12:00:00 AM EDT active Blood Glucose Test - eCW1 ([facility]) Glucometer UNK 11/03/2020 12:00:00 AM EDT active Glucometer eCW1 ([facility]) Blood Glucose Test - Blood Glucose Test - 11/03/2020 12:00:00 AM EDT active Blood Glucose Test - eCW1 ([facility]) Glucometer UNK 11/03/2020 12:00:00 AM EDT active Glucometer eCW1 ([facility]) Blood Glucose Test - Blood Glucose Test - 11/03/2020 12:00:00 AM EDT active Blood Glucose Test - eCW1 ([facility]) Lancets - Lancets - 11/03/2020 12:00:00 AM EDT act андрей Lancets - eCW1 ([facility]) Blood Glucose Test - Blood Glucose Test - 11/03/2020 12:00:00 AM EDT active Blood Glucose Test - eCW1 ([facility]) Lancets - Lancets - 11/03/2020 12:00:00 AM EDT act андрей Lancets - eCW1 ([facility]) Blood Glucose Test - Blood Glucose Test - 11/03/2020 12:00:00 AM EDT active Blood Glucose Test - eCW1 ([facility]) Lancets - Lancets - 11/03/2020 12:00:00 AM EDT act андрей Lancets - eCW1 ([facility]) Glucometer UNK 11/03/2020 12:00:00 AM EDT active Glucometer eCW1 ([facility]) Glucometer UNK 11/03/2020 12:00:00 AM EDT active Glucometer eCW1 ([facility]) Blood Glucose Test - Blood Glucose Test - 11/03/2020 12:00:00 AM EDT active Blood Glucose Test - eCW1 ([facility]) Lancets - Lancets - 11/03/2020 12:00:00 AM EDT act андрей Lancets - eCW1 ([facility]) Lancets - Lancets - 11/03/2020 12:00:00 AM EDT act андрей Lancets - eCW1 ([facility]) Glucometer UNK 11/03/2020 12:00:00 AM EDT active Glucometer eCW1 ([facility]) Lancets - Lancets - 11/03/2020 12:00:00 AM EDT act андрей Lancets - eCW1 ([facility]) Lancets - Lancets - 11/03/2020 12:00:00 AM EDT act андрей Lancets - eCW1 ([facility]) Glucometer UNK 11/03/2020 12:00:00 AM EDT active Glucometer eCW1 ([facility]) Blood Glucose Test - Blood Glucose Test - 11/03/2020 12:00:00 AM EDT active Blood Glucose Test - eCW1 ([facility]) Blood Glucose Test - Blood Glucose Test - 11/03/2020 12:00:00 AM EDT active Blood Glucose Test - eCW1 ([facility]) Glucometer UNK 11/03/2020 12:00:00 AM EDT active Glucometer eCW1 ([facility]) Lancets - Lancets - 11/03/2020 12:00:00 AM EDT act андрей Lancets - eCW1 ([facility]) Blood Glucose Test - Blood Glucose Test - 11/03/2020 12:00:00 AM EDT active Blood Glucose Test - eCW1 ([facility]) Glucometer UNK 11/03/2020 12:00:00 AM EDT active Glucometer eCW1 ([facility]) Lancets - Lancets - 11/03/2020 12:00:00 AM EDT act андрей Lancets - eCW1 ([facility]) Blood Glucose Test - Blood Glucose Test - 11/03/2020 12:00:00 AM EDT active Blood Glucose Test - eCW1 ([facility]) Lancets - Lancets - 11/03/2020 12:00:00 AM EDT act андрей Lancets - eCW1 ([facility]) Blood Glucose Test - Blood Glucose Test - 11/03/2020 12:00:00 AM EDT active Blood Glucose Test - eCW1 ([facility]) Glucometer UNK 11/03/2020 12:00:00 AM EDT active Glucometer eCW1 ([facility]) Glucometer UNK 11/03/2020 12:00:00 AM EDT active Glucometer eCW1 (On [facility]) POLYETHYLENE GLYCOL 3350 142 MG/ML Oral Solution [Miralax] M iralax 10/15/2020 12:00:00 AM EDT ORAL active M EDENT ([facility]) Alprazolam 1 MG Oral Tablet Alprazolam 08/11/2020 12:00:00 AM EDT ORAL active [facility] [place] Fluconazole 150 MG Oral Tablet [Diflucan] Diflucan 08/11/2020 1 2:00:00 AM EDT ORAL active MEDENT ([facility] [place] Botox 50 Units For Waste For 200 Units JW Modifier 07/23/2020 12:00:00 AM EDT completed [facility] ([facility]) Medication administered onsite Botox 200 Units- I Vial 07/23/2020 12:00:00 AM EDT completed MED[facility] ([facility]) Medication administered onsite cefdinir 300 MG Oral Capsule Cefdinir 07/16/2020 12:00:00 AM EDT ORAL completed [facility] ([facility] 60 ACTUAT Fluticasone propionate 0.25 MG /ACTUAT / salmeterol 0.05 MG/ACTUAT Dry Powder Inhaler [Advair] Advair Diskus 250-50 MCG/DOSE Advair Diskus 250-50 MCG/DOSE 07/07/2020 12:00:00 AM EDT 1.0 {puff} activ e Advair Diskus 250-50 MCG/DOSE eCW1 (On [facility]) 60 ACTUAT Fluticasone propionate 0.25 MG /ACTUAT / salmeterol 0.05 MG/ACTUAT Dry Powder Inhaler [Advair] Advair Diskus 250-50 MCG/DOSE Advair Diskus 250-50 MCG/DOSE 07/07/2020 12:00:00 AM EDT 1.0 {puff} activ e Advair Diskus 250-50 MCG/DOSE eCW1 (On [facility]) 60 ACTUAT Fluticasone propionate 0.25 MG /ACTUAT / salmeterol 0.05 MG/ACTUAT Dry Powder Inhaler [Advair] Advair Diskus 250-50 MCG/DOSE Advair Diskus 250-50 MCG/DOSE 07/07/2020 12:00:00 AM EDT 1.0 {puff} activ e Advair Diskus 250-50 MCG/DOSE eCW1 ([facility]) 60 ACTUAT Fluticasone propionate 0.25 MG /ACTUAT / salmeterol 0.05 MG/ACTUAT Dry Powder Inhaler [Advair] Advair Diskus 250-50 MCG/DOSE Advair Diskus 250-50 MCG/DOSE 07/07/2020 12:00:00 AM EDT 1.0 {puff} activ e Advair Diskus 250-50 MCG/DOSE eCW1 ([facility]) 60 ACTUAT Fluticasone propionate 0.25 MG /ACTUAT / salmeterol 0.05 MG/ACTUAT Dry Powder Inhaler [Advair] Advair Diskus 250-50 MCG/DOSE Advair Diskus 250-50 MCG/DOSE 07/07/2020 12:00:00 AM EDT 1.0 {puff} activ e Advair Diskus 250-50 MCG/DOSE eCW1 ([facility]) 60 ACTUAT Fluticasone propionate 0.25 MG /ACTUAT / salmeterol 0.05 MG/ACTUAT Dry Powder Inhaler [Advair] Advair Diskus 250-50 MCG/DOSE Advair Diskus 250-50 MCG/DOSE 07/07/2020 12:00:00 AM EDT 1.0 {puff} activ e Advair Diskus 250-50 MCG/DOSE eCW1 ([facility]) 60 ACTUAT Fluticasone propionate 0.25 MG /ACTUAT / salmeterol 0.05 MG/ACTUAT Dry Powder Inhaler [Advair] Advair Diskus 250-50 MCG/DOSE Advair Diskus 250-50 MCG/DOSE 07/07/2020 12:00:00 AM EDT 1.0 {puff} activ e Advair Diskus 250-50 MCG/DOSE eCW1 (On [facility]) 60 ACTUAT Fluticasone propionate 0.25 MG /ACTUAT / salmeterol 0.05 MG/ACTUAT Dry Powder Inhaler [Advair] Advair Diskus 250-50 MCG/DOSE Advair Diskus 250-50 MCG/DOSE 07/07/2020 12:00:00 AM EDT 1.0 {puff} activ e Advair Diskus 250-50 MCG/DOSE eCW1 (On [facility]) 60 ACTUAT Fluticasone propionate 0.25 MG /ACTUAT / salmeterol 0.05 MG/ACTUAT Dry Powder Inhaler [Advair] Advair Diskus 250-50 MCG/DOSE Advair Diskus 250-50 MCG/DOSE 07/07/2020 12:00:00 AM EDT 1.0 {puff} activ e Advair Diskus 250-50 MCG/DOSE eCW1 ([facility]) 60 ACTUAT Fluticasone propionate 0.25 MG /ACTUAT / salmeterol 0.05 MG/ACTUAT Dry Powder Inhaler [Advair] Advair Diskus 250-50 MCG/DOSE Advair Diskus 250-50 MCG/DOSE 07/07/2020 12:00:00 AM EDT 1.0 {puff} activ e Advair Diskus 250-50 MCG/DOSE eCW1 (On [facility]) 60 ACTUAT Fluticasone propionate 0.25 MG /ACTUAT / salmeterol 0.05 MG/ACTUAT Dry Powder Inhaler [Advair] Advair Diskus 250-50 MCG/DOSE Advair Diskus 250-50 MCG/DOSE 07/07/2020 12:00:00 AM EDT 1.0 {puff} activ e Advair Diskus 250-50 MCG/DOSE eCW1 (On [facility]) 60 ACTUAT Fluticasone propionate 0.25 MG /ACTUAT / salmeterol 0.05 MG/ACTUAT Dry Powder Inhaler [Advair] Advair Diskus 250-50 MCG/DOSE Advair Diskus 250-50 MCG/DOSE 07/07/2020 12:00:00 AM EDT 1.0 {puff} activ e Advair Diskus 250-50 MCG/DOSE eCW1 (On [facility]) 60 ACTUAT Fluticasone propionate 0.25 MG /ACTUAT / salmeterol 0.05 MG/ACTUAT Dry Powder Inhaler [Advair] Advair Diskus 250-50 MCG/DOSE Advair Diskus 250-50 MCG/DOSE 07/07/2020 12:00:00 AM EDT 1.0 {puff} activ e Advair Diskus 250-50 MCG/DOSE eCW1 (On [facility]) Alprazolam 1 MG Oral Tablet Alprazolam 05/29/2020 12:00:00 AM EDT ORAL completed [facility] ([facility] POLYETHYLENE GLYCOL 3350 142 MG/ML Oral Solution [Dawn lax] MiraLax 17 GM/SCOOP MiraLax 17 GM/SCOOP 05/26/2020 12:00:00 AM EDT active MiraLax 17 GM/SCOOP eCW1 (On License Of [facility]) POLYETHYLENE GLYCOL 3350 142 MG/ML Oral Solution [Dawn lax] MiraLax 17 GM/SCOOP MiraLax 17 GM/SCOOP 05/26/2020 12:00:00 AM EDT active MiraLax 17 GM/SCOOP eCW1 (On [facility] Of [facility]) POLYETHYLENE GLYCOL 3350 142 MG/ML Oral Solution [Dawn lax] MiraLax 17 GM/SCOOP MiraLax 17 GM/SCOOP 05/26/2020 12:00:00 AM EDT active MiraLax 17 GM/SCOOP eCW1 (On License Of [facility]) POLYETHYLENE GLYCOL 3350 142 MG/ML Oral Solution [Dawn lax] MiraLax 17 GM/SCOOP MiraLax 17 GM/SCOOP 05/26/2020 12:00:00 AM EDT active MiraLax 17 GM/SCOOP eCW1 (On License Of [facility]) POLYETHYLENE GLYCOL 3350 142 MG/ML Oral Solution [Dawn lax] MiraLax 17 GM/SCOOP MiraLax 17 GM/SCOOP 05/26/2020 12:00:00 AM EDT active MiraLax 17 GM/SCOOP eCW1 (On License Of [facility]) POLYETHYLENE GLYCOL 3350 142 MG/ML Oral Solution [Dawn lax] MiraLax 17 GM/SCOOP MiraLax 17 GM/SCOOP 05/26/2020 12:00:00 AM EDT active MiraLax 17 GM/SCOOP eCW1 (On License Of [facility]) POLYETHYLENE GLYCOL 3350 142 MG/ML Oral Solution [Dawn lax] MiraLax 17 GM/SCOOP MiraLax 17 GM/SCOOP 05/26/2020 12:00:00 AM EDT active MiraLax 17 GM/SCOOP eCW1 (On License Of [facility]) POLYETHYLENE GLYCOL 3350 142 MG/ML Oral Solution [Dawn lax] MiraLax 17 GM/SCOOP MiraLax 17 GM/SCOOP 05/26/2020 12:00:00 AM EDT active MiraLax 17 GM/SCOOP eCW1 (On License Of [facility]) POLYETHYLENE GLYCOL 3350 142 MG/ML Oral Solution [Dawn lax] MiraLax 17 GM/SCOOP MiraLax 17 GM/SCOOP 05/26/2020 12:00:00 AM EDT active MiraLax 17 GM/SCOOP eCW1 (On [facility] Of [facility]) POLYETHYLENE GLYCOL 3350 142 MG/ML Oral Solution [Dawn lax] MiraLax 17 GM/SCOOP MiraLax 17 GM/SCOOP 05/26/2020 12:00:00 AM EDT active MiraLax 17 GM/SCOOP eCW1 (On [facility] Of [facility]) POLYETHYLENE GLYCOL 3350 142 MG/ML Oral Solution [Dawn lax] MiraLax 17 GM/SCOOP MiraLax 17 GM/SCOOP 05/26/2020 12:00:00 AM EDT active MiraLax 17 GM/SCOOP eCW1 (On [facility] Of [facility]) 60 ACTUAT Albuterol 0.09 MG/ACTUAT Metered Dose Inhaler Albu terol Sulfate HFA 04/25/2020 12:00:00 AM EST RESPIRATORY active MEDENT ([facility] ) NITROFURANTOIN, MACROCRYSTALS 50 MG Oral Capsule [Macrodanti n] Macrodantin 04/09/2020 12:00:00 AM EST ORAL completed [facility] ([facility] Ciprofloxacin 500 MG Oral Tablet Ciprofloxacin HCL 04/09/2020 12:00 :00 AM EST ORAL completed [facility] ([facility] [place] Cyclobenzaprine hydrochloride 10 MG Oral Tablet Cyclob enzaprine HCl 10 MG Cyclobenzaprine HCl 10 MG 02/07/2020 12:00:00 AM EST active Cyclobenzaprine HCl 10 MG eCW1 (On [facility] Of [facility]) Cyclobenzaprine hydrochloride 10 MG Oral Tablet Cyclob enzaprine HCl 10 MG Cyclobenzaprine HCl 10 MG 02/07/2020 12:00:00 AM EST active Cyclobenzaprine HCl 10 MG eCW1 (On License Of [facility]) Cyclobenzaprine hydrochloride 5 MG Oral Tablet Cyclobe nzaprine HCl 5 MG Cyclobenzaprine HCl 5 MG 02/07/2020 12:00:00 AM EST active Cyclobenzaprine HCl 5 MG eCW1 (On [facility] Of [facility]) Cyclobenzaprine hydrochloride 10 MG Oral Tablet Cyclob enzaprine HCl 10 MG Cyclobenzaprine HCl 10 MG 02/07/2020 12:00:00 AM EST active Cyclobenzaprine HCl 10 MG eCW1 (On [facility] Of [facility]) Metronidazole 500 MG Oral Tablet Metronidazole 01/14/2020 12:00:00 AM EST ORAL active [facility] ([facility] [place] Tamsulosin hydrochloride 0.4 MG Oral Capsule Tamsulosin HCL 01/10/2020 12:00:00 AM EST active [facility] ([facility] [place]) NITROFURANTOIN, MACROCRYSTALS 25 MG / Ni trofurantoin, Monohydrate 75 MG Oral Capsule [Macrobid] Macrobid 01/10/2020 12:00:00 AM EST ORAL completed [facility] [place] Ciprofloxacin 250 MG Oral Tablet Ciprofloxacin HCL 12/13/2019 12:00 :00 AM EDT ORAL completed [facility] ([facility] [place]) Amitriptyline Hydrochloride 25 MG Oral Tablet Amitript yline HCl 25 MG Amitriptyline HCl 25 MG 12/06/2019 12:00:00 AM EDT active Amitriptyline HCl 25 MG eCW1 (On License Of [facility]) Amitriptyline Hydrochloride 25 MG Oral Tablet Amitript yline HCl 25 MG Amitriptyline HCl 25 MG 12/06/2019 12:00:00 AM EDT active Amitriptyline HCl 25 MG eCW1 (On License Of [facility]) Amitriptyline Hydrochloride 25 MG Oral Tablet Amitript yline HCl 25 MG Amitriptyline HCl 25 MG 12/06/2019 12:00:00 AM EDT active Amitriptyline HCl 25 MG eCW1 (On License Of [facility]) Amitriptyline Hydrochloride 25 MG Oral Tablet Amitript yline HCl 25 MG Amitriptyline HCl 25 MG 12/06/2019 12:00:00 AM EDT active Amitriptyline HCl 25 MG eCW1 (On License Of [facility]) Amitriptyline Hydrochloride 25 MG Oral Tablet Amitript yline HCl 25 MG Amitriptyline HCl 25 MG 12/06/2019 12:00:00 AM EDT active Amitriptyline HCl 25 MG eCW1 (On License Of [facility]) Amitriptyline Hydrochloride 25 MG Oral Tablet Amitript yline HCl 25 MG Amitriptyline HCl 25 MG 12/06/2019 12:00:00 AM EDT active Amitriptyline HCl 25 MG eCW1 (On License Of [facility]) Botox 200 Units- I Vial 11/27/2019 12:00:00 AM EDT completed [facility] ([facility] [place]) Medication administered onsite Botox 50 Units For Waste For 200 Units JW Modifier 11/27/2019 12:00:00 AM EDT completed [facility] ([facility] Medication administered onsite Ciprofloxacin 250 MG Oral Tablet Ciprofloxacin HCL 11/27/2019 12:00 :00 AM EDT ORAL completed [facility] Alprazolam 1 MG Oral Tablet Alprazolam 10/11/2019 12:00:00 AM EDT ORAL completed [facility] ([facility] cefdinir 300 MG Oral Capsule cefdinir 300 mg capsule cefdinir 30 0 mg capsule completed cefdinir 300 M G Oral Capsule [facility] ([facility]) Methylprednisolone 4 MG Oral Tablet methylprednisolone 4 mg tablet 1 tab daily methylprednisolone 4 mg tablet 1 tab daily completed methylprednisolone 4 MG Oral Tablet [facility] ([facility]) Doxycycline Monohydrate 100 MG Oral Caps ule doxycycline monohydrate 100 mg capsule TAKE ONE CAPSULE BY MOUTH TWICE DAILY FOR SEVEN DAYS doxycycline monohydrate 100 mg capsule TAKE ONE CAPSULE BY MOUTH TWICE DAILY FOR SEVEN DAYS completed doxycycline mo nohydrate 100 MG Oral Capsule [facility] ([facility]) cefdinir 300 MG Oral Capsule cefdinir 300 mg capsule cefdinir 30 0 mg capsule completed cefdinir 300 M G Oral Capsule [facility] ([facility]) Amoxicillin 500 MG / Clavulanate 125 MG Oral Tablet amoxicillin 500 mg-potassium clavulanate 125 mg tablet TAKE ONE TABLET BY MOUTH EVERY TWELVE HOURS amoxicillin 500 mg-potassium clavulanate 125 mg tablet TAKE ONE TABLET BY MOUTH EVERY TWELVE HOURS completed amoxicillin 500 MG / clavulanate 125 MG Oral Tablet [facility] ([facility]) 0.3 ML Enoxaparin sodium 100 MG/ML Prefi lled Syringe enoxaparin 30 mg/0.3 mL subcutaneous syringe INJECT 0.3 MILLILITERS SUBCUTANEOUSLY EVERY 12 HOURS FOR TWO WEEKS enoxaparin 30 mg/0.3 mL subcutaneous syr travis INJECT 0.3 MILLILITERS SUBCUTANEOUSLY EVERY 12 HOURS FOR TWO WEEKS completed 0.3 ML enoxaparin sodium 100 MG/ML Prefilled Syringe [facility] ([facility]) Methylprednisolone 4 MG Oral Tablet methylprednisolone 4 mg tablet 1 tab daily methylprednisolone 4 mg tablet 1 tab daily completed methylprednisolone 4 MG Oral Tablet [facility] ([facility]) tramadol hydrochloride 50 MG Oral Tablet tramadol 50 mg tablet TAKE ONE TABLET BY MOUTH EVERY 6 HOURS NEEDED FOR PAIN MAX DAILY DOSE FOUR TABLETS tramadol 50 mg tablet TAKE ONE TABLET BY MOUTH EVERY 6 HOURS NEEDED FOR PAIN MAX DAILY DOSE FOUR TABLETS completed tramadol hydrochloride 50 MG Oral Tablet [facility] ([facility]) Oxycodone Hydrochloride 5 MG Oral Tablet oxycodone 5 mg tablet TAKE 1 TO 2 TABLETS BY MOUTH EVERY FOUR HOURS NEEDED FOR PAIN MAX DAILY DOSE 12 CAPSULES oxycodone 5 mg tablet TAKE 1 TO 2 TABLETS BY MOUTH EVERY FOUR HOURS NEEDED FOR PAIN MAX DAILY DOSE 12 CAPSULES co mpleted oxycodone hydrochloride 5 MG Oral Tablet [facility] ([facility]) Prednisone 20 MG Oral Tablet prednisone 20 mg tablet TAKE ONE TABLET BY MOUTH ONCE DAILY FOR FIVE DAYS prednisone 20 mg tablet TAKE ONE TABLET BY MOUTH ONCE DAILY FOR FIVE DAYS completed pr ednisone 20 MG Oral Tablet [facility] ([facility]) glimepiride 1 MG Oral Tablet glimepiride 1 mg tablet glimepiride 1 mg tablet completed glimepiride 1 MG Oral Tablet [facility] ([facility]) Alprazolam 1 MG Oral Tablet alprazolam 1 mg tablet alprazolam 1 mg ta blet completed alprazolam 1 MG Oral Tablet [facility] ([facility]) Alprazolam 1 MG Oral Tablet alprazolam 1 mg tablet alprazolam 1 mg ta blet completed alprazolam 1 MG Oral Tablet [facility] ([facility]) 0.3 ML Enoxaparin sodium 100 MG/ML Prefi lled Syringe enoxaparin 30 mg/0.3 mL subcutaneous syringe INJECT 0.3 MILLILITERS SUBCUTANEOUSLY EVERY 12 HOURS FOR TWO WEEKS enoxaparin 30 mg/0.3 mL subcutaneous syr travis INJECT 0.3 MILLILITERS SUBCUTANEOUSLY EVERY 12 HOURS FOR TWO WEEKS completed 0.3 ML enoxaparin sodium 100 MG/ML Prefilled Syringe [facility] ([facility]) Methylprednisolone 2 MG Oral Tablet [Med rol] Medrol 2 mg tablet 1 tablet every other day Medrol 2 mg tablet 1 tablet every other day completed methylprednisolone 2 MG Oral Tablet [Medrol] [facility] ([facility]) Doxycycline Monohydrate 100 MG Oral Caps ule doxycycline monohydrate 100 mg capsule TAKE ONE CAPSULE BY MOUTH TWICE DAILY FOR SEVEN DAYS doxycycline monohydrate 100 mg capsule TAKE ONE CAPSULE BY MOUTH TWICE DAILY FOR SEVEN DAYS completed doxycycline mo nohydrate 100 MG Oral Capsule [facility] ([facility]) Prednisone 20 MG Oral Tablet prednisone 20 mg tablet TAKE ONE TABLET BY MOUTH ONCE DAILY FOR FIVE DAYS prednisone 20 mg tablet TAKE ONE TABLET BY MOUTH ONCE DAILY FOR FIVE DAYS completed pr ednisone 20 MG Oral Tablet [facility] ([facility]) Amoxicillin 500 MG / Clavulanate 125 MG Oral Tablet amoxicillin 500 mg-potassium clavulanate 125 mg tablet TAKE ONE TABLET BY MOUTH EVERY TWELVE HOURS amoxicillin 500 mg-potassium clavulanate 125 mg tablet TAKE ONE TABLET BY MOUTH EVERY TWELVE HOURS completed amoxicillin 500 MG / clavulanate 125 MG Oral Tablet [facility] ([facility]) Alprazolam 1 MG Oral Tablet alprazolam 1 mg tablet alprazolam 1 mg ta blet completed alprazolam 1 MG Oral Tablet [facility] ([facility]) 0.3 ML Enoxaparin sodium 100 MG/ML Prefi lled Syringe enoxaparin 30 mg/0.3 mL subcutaneous syringe INJECT 0.3 MILLILITERS SUBCUTANEOUSLY EVERY 12 HOURS FOR TWO WEEKS enoxaparin 30 mg/0.3 mL subcutaneous syr travis INJECT 0.3 MILLILITERS SUBCUTANEOUSLY EVERY 12 HOURS FOR TWO WEEKS completed 0.3 ML enoxaparin sodium 100 MG/ML Prefilled Syringe [facility] ([facility]) Prednisone 20 MG Oral Tablet prednisone 20 mg tablet TAKE ONE TABLET BY MOUTH ONCE DAILY FOR FIVE DAYS prednisone 20 mg tablet TAKE ONE TABLET BY MOUTH ONCE DAILY FOR FIVE DAYS completed pr ednisone 20 MG Oral Tablet [facility] ([facility]) 0.3 ML Enoxaparin sodium 100 MG/ML Prefi lled Syringe enoxaparin 30 mg/0.3 mL subcutaneous syringe INJECT 0.3 MILLILITERS SUBCUTANEOUSLY EVERY 12 HOURS FOR TWO WEEKS enoxaparin 30 mg/0.3 mL subcutaneous syr travis INJECT 0.3 MILLILITERS SUBCUTANEOUSLY EVERY 12 HOURS FOR TWO WEEKS completed 0.3 ML enoxaparin sodium 100 MG/ML Prefilled Syringe [facility] ([facility]) 0.3 ML Enoxaparin sodium 100 MG/ML Prefi lled Syringe enoxaparin 30 mg/0.3 mL subcutaneous syringe INJECT 0.3 MILLILITERS SUBCUTANEOUSLY EVERY 12 HOURS FOR TWO WEEKS enoxaparin 30 mg/0.3 mL subcutaneous syr travis INJECT 0.3 MILLILITERS SUBCUTANEOUSLY EVERY 12 HOURS FOR TWO WEEKS completed 0.3 ML enoxaparin sodium 100 MG/ML Prefilled Syringe [facility] ([facility]) Amoxicillin 500 MG / Clavulanate 125 MG Oral Tablet amoxicillin 500 mg-potassium clavulanate 125 mg tablet TAKE ONE TABLET BY MOUTH EVERY TWELVE HOURS amoxicillin 500 mg-potassium clavulanate 125 mg tablet TAKE ONE TABLET BY MOUTH EVERY TWELVE HOURS completed amoxicillin 500 MG / clavulanate 125 MG Oral Tablet [facility] ([facility]) Doxycycline Monohydrate 100 MG Oral Caps ule doxycycline monohydrate 100 mg capsule TAKE ONE CAPSULE BY MOUTH TWICE DAILY FOR SEVEN DAYS doxycycline monohydrate 100 mg capsule TAKE ONE CAPSULE BY MOUTH TWICE DAILY FOR SEVEN DAYS completed doxycycline mo nohydrate 100 MG Oral Capsule [facility] ([facility]) Acetaminophen 325 MG / Oxycodone Hydroch loride 5 MG Oral Tablet oxycodone- acetaminophen 5 mg-325 mg tablet oxycodone-acetaminophen 5 mg-325 mg tablet completed acetaminop hen 325 MG / oxycodone hydrochloride 5 MG Oral Tablet [facility] ([facility]) glimepiride 1 MG Oral Tablet glimepiride 1 mg tablet glimepiride 1 mg tablet completed glimepiride 1 MG Oral Tablet [facility] ([facility]) Estradiol 0.1 MG/ML Vaginal Cream estradiol 0.01% (0.1 mg/gram) vaginal cream estradiol 0.01% (0.1 mg/gram) vaginal cream completed estradiol 0.1 MG/ML Vaginal Cream [facility] ([facility]) Prednisone 20 MG Oral Tablet prednisone 20 mg tablet TAKE ONE TABLET BY MOUTH ONCE DAILY FOR FIVE DAYS prednisone 20 mg tablet TAKE ONE TABLET BY MOUTH ONCE DAILY FOR FIVE DAYS completed pr ednisone 20 MG Oral Tablet [facility] ([facility]) glimepiride 2 MG Oral Tablet glimepiride 2 mg tablet TAKE ONE TABLET BY MOUTH @8AM and TAKE ONE TABLET @8PM glimepiride 2 mg tablet TAKE ONE TABLET BY MOUTH @8AM and TAKE ONE TABLET @8PM complete d glimepiride 2 MG Oral Tablet [facility] ([facility]) Cyclobenzaprine hydrochloride 5 MG Oral Tablet cyclobenzaprine 5 mg tablet TAKE ONE TABLET BY MOUTH @8AM and TAKE ONE TABLET @12PM and TAKE ONE TABLET @8PM cyclobenzaprine 5 mg tablet TAKE ONE TABLET BY MOUTH @8AM and TAKE ONE TABLET @12PM and TAKE ONE TABLET @8PM complet ed cyclobenzaprine hydrochloride 5 MG Oral Tablet [facility] ([facility]) Acetaminophen 325 MG / Oxycodone Hydroch loride 5 MG Oral Tablet oxycodone- acetaminophen 5 mg-325 mg tablet oxycodone-acetaminophen 5 mg-325 mg tablet completed acetaminop hen 325 MG / oxycodone hydrochloride 5 MG Oral Tablet [facility] ([facility]) tramadol hydrochloride 50 MG Oral Tablet tramadol 50 mg tablet TAKE ONE TABLET BY MOUTH EVERY 6 HOURS NEEDED FOR PAIN MAX DAILY DOSE FOUR TABLETS tramadol 50 mg tablet TAKE ONE TABLET BY MOUTH EVERY 6 HOURS NEEDED FOR PAIN MAX DAILY DOSE FOUR TABLETS completed tramadol hydrochloride 50 MG Oral Tablet [facility] ([facility]) Estradiol 0.1 MG/ML Vaginal Cream estradiol 0.01% (0.1 mg/gram) vaginal cream estradiol 0.01% (0.1 mg/gram) vaginal cream completed estradiol 0.1 MG/ML Vaginal Cream [facility] ([facility]) Estradiol 0.1 MG/ML Vaginal Cream estradiol 0.01% (0.1 mg/gram) vaginal cream estradiol 0.01% (0.1 mg/gram) vaginal cream completed estradiol 0.1 MG/ML Vaginal Cream [facility] ([facility]) Prednisone 20 MG Oral Tablet prednisone 20 mg tablet TAKE ONE TABLET BY MOUTH ONCE DAILY FOR FIVE DAYS prednisone 20 mg tablet TAKE ONE TABLET BY MOUTH ONCE DAILY FOR FIVE DAYS completed pr ednisone 20 MG Oral Tablet [facility] ([facility]) Doxycycline Monohydrate 100 MG Oral Caps ule doxycycline monohydrate 100 mg capsule TAKE ONE CAPSULE BY MOUTH TWICE DAILY FOR SEVEN DAYS doxycycline monohydrate 100 mg capsule TAKE ONE CAPSULE BY MOUTH TWICE DAILY FOR SEVEN DAYS completed doxycycline mo nohydrate 100 MG Oral Capsule [facility] ([facility]) Methylprednisolone 4 MG Oral Tablet methylprednisolone 4 mg tablet 1 tab daily methylprednisolone 4 mg tablet 1 tab daily completed methylprednisolone 4 MG Oral Tablet [facility] ([facility]) Ciprofloxacin 250 MG Oral Tablet ciprofl oxacin 250 mg tablet TAKE ONE TABLET BY MOUTH TWICE DAILY FOR 3 DAYS ciprofloxacin 250 mg tablet TAKE ONE TAB LET BY MOUTH TWICE DAILY FOR 3 DAYS completed ciprofloxacin 250 MG Oral Tablet [facility] ([facility]) Methylprednisolone 2 MG Oral Tablet [Med rol] Medrol 2 mg tablet 1 tablet every other day Medrol 2 mg tablet 1 tablet every other day completed methylprednisolone 2 MG Oral Tablet [Medrol] [facility] ([facility]) Amoxicillin 500 MG / Clavulanate 125 MG Oral Tablet amoxicillin 500 mg-potassium clavulanate 125 mg tablet TAKE ONE TABLET BY MOUTH EVERY TWELVE HOURS amoxicillin 500 mg-potassium clavulanate 125 mg tablet TAKE ONE TABLET BY MOUTH EVERY TWELVE HOURS completed amoxicillin 500 MG / clavulanate 125 MG Oral Tablet [facility] ([facility]) cefdinir 300 MG Oral Capsule cefdinir 300 mg capsule cefdinir 30 0 mg capsule completed cefdinir 300 M G Oral Capsule [facility] ([facility]) Doxycycline Monohydrate 100 MG Oral Caps ule doxycycline monohydrate 100 mg capsule TAKE ONE CAPSULE BY MOUTH TWICE DAILY FOR SEVEN DAYS doxycycline monohydrate 100 mg capsule TAKE ONE CAPSULE BY MOUTH TWICE DAILY FOR SEVEN DAYS completed doxycycline mo nohydrate 100 MG Oral Capsule [facility] ([facility]) Prednisone 20 MG Oral Tablet prednisone 20 mg tablet TAKE ONE TABLET BY MOUTH ONCE DAILY FOR FIVE DAYS prednisone 20 mg tablet TAKE ONE TABLET BY MOUTH ONCE DAILY FOR FIVE DAYS completed pr ednisone 20 MG Oral Tablet [facility] ([facility]) Estradiol 0.1 MG/ML Vaginal Cream estradiol 0.01% (0.1 mg/gram) vaginal cream estradiol 0.01% (0.1 mg/gram) vaginal cream completed estradiol 0.1 MG/ML Vaginal Cream [facility] ([facility]) Amoxicillin 500 MG / Clavulanate 125 MG Oral Tablet amoxicillin 500 mg-potassium clavulanate 125 mg tablet TAKE ONE TABLET BY MOUTH EVERY TWELVE HOURS amoxicillin 500 mg-potassium clavulanate 125 mg tablet TAKE ONE TABLET BY MOUTH EVERY TWELVE HOURS completed amoxicillin 500 MG / clavulanate 125 MG Oral Tablet [facility] ([facility]) 0.3 ML Enoxaparin sodium 100 MG/ML Prefi lled Syringe enoxaparin 30 mg/0.3 mL subcutaneous syringe INJECT 0.3 MILLILITERS SUBCUTANEOUSLY EVERY 12 HOURS FOR TWO WEEKS enoxaparin 30 mg/0.3 mL subcutaneous syr travis INJECT 0.3 MILLILITERS SUBCUTANEOUSLY EVERY 12 HOURS FOR TWO WEEKS completed 0.3 ML enoxaparin sodium 100 MG/ML Prefilled Syringe [facility] ([facility]) Doxycycline Monohydrate 100 MG Oral Caps ule doxycycline monohydrate 100 mg capsule TAKE ONE CAPSULE BY MOUTH TWICE DAILY FOR SEVEN DAYS doxycycline monohydrate 100 mg capsule TAKE ONE CAPSULE BY MOUTH TWICE DAILY FOR SEVEN DAYS completed doxycycline mo nohydrate 100 MG Oral Capsule [facility] ([facility]) Methylprednisolone 4 MG Oral Tablet methylprednisolone 4 mg tablet 1 tab daily methylprednisolone 4 mg tablet 1 tab daily completed methylprednisolone 4 MG Oral Tablet [facility] ([facility]) glimepiride 2 MG Oral Tablet glimepiride 2 mg tablet TAKE ONE TABLET BY MOUTH @8AM and TAKE ONE TABLET @8PM glimepiride 2 mg tablet TAKE ONE TABLET BY MOUTH @8AM and TAKE ONE TABLET @8PM complete d glimepiride 2 MG Oral Tablet [facility] ([facility]) Ciprofloxacin 250 MG Oral Tablet ciprofl oxacin 250 mg tablet TAKE ONE TABLET BY MOUTH TWICE DAILY FOR 3 DAYS ciprofloxacin 250 mg tablet TAKE ONE TAB LET BY MOUTH TWICE DAILY FOR 3 DAYS completed ciprofloxacin 250 MG Oral Tablet [facility] ([facility]) Acetaminophen 325 MG / Oxycodone Hydroch loride 5 MG Oral Tablet oxycodone- acetaminophen 5 mg-325 mg tablet oxycodone-acetaminophen 5 mg-325 mg tablet completed acetaminop hen 325 MG / oxycodone hydrochloride 5 MG Oral Tablet [facility] ([facility]) glimepiride 1 MG Oral Tablet glimepiride 1 mg tablet glimepiride 1 mg tablet completed glimepiride 1 MG Oral Tablet [facility] ([facility]) tramadol hydrochloride 50 MG Oral Tablet tramadol 50 mg tablet TAKE ONE TABLET BY MOUTH EVERY 6 HOURS NEEDED FOR PAIN MAX DAILY DOSE FOUR TABLETS tramadol 50 mg tablet TAKE ONE TABLET BY MOUTH EVERY 6 HOURS NEEDED FOR PAIN MAX DAILY DOSE FOUR TABLETS completed tramadol hydrochloride 50 MG Oral Tablet [facility] ([facility]) Oxycodone Hydrochloride 5 MG Oral Tablet oxycodone 5 mg tablet TAKE 1 TO 2 TABLETS BY MOUTH EVERY FOUR HOURS NEEDED FOR PAIN MAX DAILY DOSE 12 CAPSULES oxycodone 5 mg tablet TAKE 1 TO 2 TABLETS BY MOUTH EVERY FOUR HOURS NEEDED FOR PAIN MAX DAILY DOSE 12 CAPSULES co mpleted oxycodone hydrochloride 5 MG Oral Tablet [facility] ([facility]) Oxycodone Hydrochloride 5 MG Oral Tablet oxycodone 5 mg tablet TAKE 1 TO 2 TABLETS BY MOUTH EVERY FOUR HOURS NEEDED FOR PAIN MAX DAILY DOSE 12 CAPSULES oxycodone 5 mg tablet TAKE 1 TO 2 TABLETS BY MOUTH EVERY FOUR HOURS NEEDED FOR PAIN MAX DAILY DOSE 12 CAPSULES co mpleted oxycodone hydrochloride 5 MG Oral Tablet [facility] ([facility]) Methylprednisolone 2 MG Oral Tablet [Med rol] Medrol 2 mg tablet 1 tablet every other day Medrol 2 mg tablet 1 tablet every other day completed methylprednisolone 2 MG Oral Tablet [Medrol] [facility] ([facility]) tramadol hydrochloride 50 MG Oral Tablet tramadol 50 mg tablet TAKE ONE TABLET BY MOUTH EVERY 6 HOURS NEEDED FOR PAIN MAX DAILY DOSE FOUR TABLETS tramadol 50 mg tablet TAKE ONE TABLET BY MOUTH EVERY 6 HOURS NEEDED FOR PAIN MAX DAILY DOSE FOUR TABLETS completed tramadol hydrochloride 50 MG Oral Tablet [facility] ([facility]) Doxycycline Monohydrate 100 MG Oral Caps ule doxycycline monohydrate 100 mg capsule TAKE ONE CAPSULE BY MOUTH TWICE DAILY FOR SEVEN DAYS doxycycline monohydrate 100 mg capsule TAKE ONE CAPSULE BY MOUTH TWICE DAILY FOR SEVEN DAYS completed doxycycline mo nohydrate 100 MG Oral Capsule [facility] ([facility]) Methylprednisolone 2 MG Oral Tablet [Med rol] Medrol 2 mg tablet 1 tablet every other day Medrol 2 mg tablet 1 tablet every other day completed methylprednisolone 2 MG Oral Tablet [Medrol] [facility] ([facility]) Methylprednisolone 4 MG Oral Tablet methylprednisolone 4 mg tablet 1 tab daily methylprednisolone 4 mg tablet 1 tab daily completed methylprednisolone 4 MG Oral Tablet [facility] ([facility]) Acetaminophen 325 MG / Oxycodone Hydroch loride 5 MG Oral Tablet oxycodone- acetaminophen 5 mg-325 mg tablet oxycodone-acetaminophen 5 mg-325 mg tablet completed acetaminop hen 325 MG / oxycodone hydrochloride 5 MG Oral Tablet [facility] ([facility]) Methylprednisolone 2 MG Oral Tablet [Med rol] Medrol 2 mg tablet 1 tablet every other day Medrol 2 mg tablet 1 tablet every other day completed methylprednisolone 2 MG Oral Tablet [Medrol] [facility] ([facility]) tramadol hydrochloride 50 MG Oral Tablet tramadol 50 mg tablet TAKE ONE TABLET BY MOUTH EVERY 6 HOURS NEEDED FOR PAIN MAX DAILY DOSE FOUR TABLETS tramadol 50 mg tablet TAKE ONE TABLET BY MOUTH EVERY 6 HOURS NEEDED FOR PAIN MAX DAILY DOSE FOUR TABLETS completed tramadol hydrochloride 50 MG Oral Tablet [facility] ([facility]) Alprazolam 1 MG Oral Tablet alprazolam 1 mg tablet alprazolam 1 mg ta blet completed alprazolam 1 MG Oral Tablet [facility] ([facility]) Amoxicillin 500 MG / Clavulanate 125 MG Oral Tablet amoxicillin 500 mg-potassium clavulanate 125 mg tablet TAKE ONE TABLET BY MOUTH EVERY TWELVE HOURS amoxicillin 500 mg-potassium clavulanate 125 mg tablet TAKE ONE TABLET BY MOUTH EVERY TWELVE HOURS completed amoxicillin 500 MG / clavulanate 125 MG Oral Tablet [facility] ([facility]) Estradiol 0.1 MG/ML Vaginal Cream estradiol 0.01% (0.1 mg/gram) vaginal cream estradiol 0.01% (0.1 mg/gram) vaginal cream completed estradiol 0.1 MG/ML Vaginal Cream [facility] ([facility]) Prednisone 20 MG Oral Tablet prednisone 20 mg tablet TAKE ONE TABLET BY MOUTH ONCE DAILY FOR FIVE DAYS prednisone 20 mg tablet TAKE ONE TABLET BY MOUTH ONCE DAILY FOR FIVE DAYS completed pr ednisone 20 MG Oral Tablet [facility] ([facility]) Acetaminophen 325 MG / Oxycodone Hydroch loride 5 MG Oral Tablet oxycodone- acetaminophen 5 mg-325 mg tablet oxycodone-acetaminophen 5 mg-325 mg tablet completed acetaminop hen 325 MG / oxycodone hydrochloride 5 MG Oral Tablet [facility] ([facility]) 0.3 ML Enoxaparin sodium 100 MG/ML Prefi lled Syringe enoxaparin 30 mg/0.3 mL subcutaneous syringe INJECT 0.3 MILLILITERS SUBCUTANEOUSLY EVERY 12 HOURS FOR TWO WEEKS enoxaparin 30 mg/0.3 mL subcutaneous syr travis INJECT 0.3 MILLILITERS SUBCUTANEOUSLY EVERY 12 HOURS FOR TWO WEEKS completed 0.3 ML enoxaparin sodium 100 MG/ML Prefilled Syringe [facility] ([facility]) Amoxicillin 500 MG / Clavulanate 125 MG Oral Tablet amoxicillin 500 mg-potassium clavulanate 125 mg tablet TAKE ONE TABLET BY MOUTH EVERY TWELVE HOURS amoxicillin 500 mg-potassium clavulanate 125 mg tablet TAKE ONE TABLET BY MOUTH EVERY TWELVE HOURS completed amoxicillin 500 MG / clavulanate 125 MG Oral Tablet [facility] ([facility]) Methylprednisolone 2 MG Oral Tablet [Med rol] Medrol 2 mg tablet 1 tablet every other day Medrol 2 mg tablet 1 tablet every other day completed methylprednisolone 2 MG Oral Tablet [Medrol] [facility] ([facility]) Cyclobenzaprine hydrochloride 5 MG Oral Tablet cyclobenzaprine 5 mg tablet TAKE ONE TABLET BY MOUTH @8AM and TAKE ONE TABLET @12PM and TAKE ONE TABLET @8PM cyclobenzaprine 5 mg tablet TAKE ONE TABLET BY MOUTH @8AM and TAKE ONE TABLET @12PM and TAKE ONE TABLET @8PM complet ed cyclobenzaprine hydrochloride 5 MG Oral Tablet [facility] ([facility]) Acetaminophen 325 MG / Oxycodone Hydroch loride 5 MG Oral Tablet oxycodone- acetaminophen 5 mg-325 mg tablet oxycodone-acetaminophen 5 mg-325 mg tablet completed acetaminop hen 325 MG / oxycodone hydrochloride 5 MG Oral Tablet [facility] ([facility]) Ciprofloxacin 250 MG Oral Tablet ciprofl oxacin 250 mg tablet TAKE ONE TABLET BY MOUTH TWICE DAILY FOR 3 DAYS ciprofloxacin 250 mg tablet TAKE ONE TAB LET BY MOUTH TWICE DAILY FOR 3 DAYS completed ciprofloxacin 250 MG Oral Tablet [facility] ([facility]) Oxycodone Hydrochloride 5 MG Oral Tablet oxycodone 5 mg tablet TAKE 1 TO 2 TABLETS BY MOUTH EVERY FOUR HOURS NEEDED FOR PAIN MAX DAILY DOSE 12 CAPSULES oxycodone 5 mg tablet TAKE 1 TO 2 TABLETS BY MOUTH EVERY FOUR HOURS NEEDED FOR PAIN MAX DAILY DOSE 12 CAPSULES co mpleted oxycodone hydrochloride 5 MG Oral Tablet [facility] ([facility]) Ciprofloxacin 250 MG Oral Tablet ciprofl oxacin 250 mg tablet TAKE ONE TABLET BY MOUTH TWICE DAILY FOR 3 DAYS ciprofloxacin 250 mg tablet TAKE ONE TAB LET BY MOUTH TWICE DAILY FOR 3 DAYS completed ciprofloxacin 250 MG Oral Tablet [facility] ([facility]) tramadol hydrochloride 50 MG Oral Tablet tramadol 50 mg tablet TAKE ONE TABLET BY MOUTH EVERY 6 HOURS NEEDED FOR PAIN MAX DAILY DOSE FOUR TABLETS tramadol 50 mg tablet TAKE ONE TABLET BY MOUTH EVERY 6 HOURS NEEDED FOR PAIN MAX DAILY DOSE FOUR TABLETS completed tramadol hydrochloride 50 MG Oral Tablet [facility] ([facility]) Prednisone 20 MG Oral Tablet prednisone 20 mg tablet TAKE ONE TABLET BY MOUTH ONCE DAILY FOR FIVE DAYS prednisone 20 mg tablet TAKE ONE TABLET BY MOUTH ONCE DAILY FOR FIVE DAYS completed pr ednisone 20 MG Oral Tablet [facility] ([facility]) Methylprednisolone 4 MG Oral Tablet methylprednisolone 4 mg tablet 1 tab daily methylprednisolone 4 mg tablet 1 tab daily completed methylprednisolone 4 MG Oral Tablet [facility] ([facility]) cefdinir 300 MG Oral Capsule cefdinir 300 mg capsule cefdinir 30 0 mg capsule completed cefdinir 300 M G Oral Capsule [facility] ([facility]) Estradiol 0.1 MG/ML Vaginal Cream estradiol 0.01% (0.1 mg/gram) vaginal cream estradiol 0.01% (0.1 mg/gram) vaginal cream completed estradiol 0.1 MG/ML Vaginal Cream [facility] ([facility]) Methylprednisolone 4 MG Oral Tablet methylprednisolone 4 mg tablet 1 tab daily methylprednisolone 4 mg tablet 1 tab daily completed methylprednisolone 4 MG Oral Tablet [facility] ([facility]) tramadol hydrochloride 50 MG Oral Tablet tramadol 50 mg tablet TAKE ONE TABLET BY MOUTH EVERY 6 HOURS NEEDED FOR PAIN MAX DAILY DOSE FOUR TABLETS tramadol 50 mg tablet TAKE ONE TABLET BY MOUTH EVERY 6 HOURS NEEDED FOR PAIN MAX DAILY DOSE FOUR TABLETS completed tramadol hydrochloride 50 MG Oral Tablet [facility] ([facility]) glimepiride 2 MG Oral Tablet glimepiride 2 mg tablet TAKE ONE TABLET BY MOUTH @8AM and TAKE ONE TABLET @8PM glimepiride 2 mg tablet TAKE ONE TABLET BY MOUTH @8AM and TAKE ONE TABLET @8PM complete d glimepiride 2 MG Oral Tablet [facility] ([facility]) Doxycycline Monohydrate 100 MG Oral Caps ule doxycycline monohydrate 100 mg capsule TAKE ONE CAPSULE BY MOUTH TWICE DAILY FOR SEVEN DAYS doxycycline monohydrate 100 mg capsule TAKE ONE CAPSULE BY MOUTH TWICE DAILY FOR SEVEN DAYS completed doxycycline mo nohydrate 100 MG Oral Capsule [facility] ([facility]) Oxycodone Hydrochloride 5 MG Oral Tablet oxycodone 5 mg tablet TAKE 1 TO 2 TABLETS BY MOUTH EVERY FOUR HOURS NEEDED FOR PAIN MAX DAILY DOSE 12 CAPSULES oxycodone 5 mg tablet TAKE 1 TO 2 TABLETS BY MOUTH EVERY FOUR HOURS NEEDED FOR PAIN MAX DAILY DOSE 12 CAPSULES co mpleted oxycodone hydrochloride 5 MG Oral Tablet [facility] ([facility]) Oxycodone Hydrochloride 5 MG Oral Tablet oxycodone 5 mg tablet TAKE 1 TO 2 TABLETS BY MOUTH EVERY FOUR HOURS NEEDED FOR PAIN MAX DAILY DOSE 12 CAPSULES oxycodone 5 mg tablet TAKE 1 TO 2 TABLETS BY MOUTH EVERY FOUR HOURS NEEDED FOR PAIN MAX DAILY DOSE 12 CAPSULES co mpleted oxycodone hydrochloride 5 MG Oral Tablet [facility] ([facility]) Methylprednisolone 2 MG Oral Tablet [Med rol] Medrol 2 mg tablet 1 tablet every other day Medrol 2 mg tablet 1 tablet every other day completed methylprednisolone 2 MG Oral Tablet [Medrol] [facility] ([facility]) Oxycodone Hydrochloride 5 MG Oral Tablet oxycodone 5 mg tablet TAKE 1 TO 2 TABLETS BY MOUTH EVERY FOUR HOURS NEEDED FOR PAIN MAX DAILY DOSE 12 CAPSULES oxycodone 5 mg tablet TAKE 1 TO 2 TABLETS BY MOUTH EVERY FOUR HOURS NEEDED FOR PAIN MAX DAILY DOSE 12 CAPSULES co mpleted oxycodone hydrochloride 5 MG Oral Tablet [facility] ([facility]) Methylprednisolone 4 MG Oral Tablet methylprednisolone 4 mg tablet 1 tab daily methylprednisolone 4 mg tablet 1 tab daily completed methylprednisolone 4 MG Oral Tablet [facility] ([facility]) Doxycycline Monohydrate 100 MG Oral Caps ule doxycycline monohydrate 100 mg capsule TAKE ONE CAPSULE BY MOUTH TWICE DAILY FOR SEVEN DAYS doxycycline monohydrate 100 mg capsule TAKE ONE CAPSULE BY MOUTH TWICE DAILY FOR SEVEN DAYS completed doxycycline mo nohydrate 100 MG Oral Capsule [facility] ([facility]) glimepiride 1 MG Oral Tablet glimepiride 1 mg tablet glimepiride 1 mg tablet completed glimepiride 1 MG Oral Tablet [facility] ([facility]) Oxycodone Hydrochloride 5 MG Oral Tablet oxycodone 5 mg tablet TAKE 1 TO 2 TABLETS BY MOUTH EVERY FOUR HOURS NEEDED FOR PAIN MAX DAILY DOSE 12 CAPSULES oxycodone 5 mg tablet TAKE 1 TO 2 TABLETS BY MOUTH EVERY FOUR HOURS NEEDED FOR PAIN MAX DAILY DOSE 12 CAPSULES co mpleted oxycodone hydrochloride 5 MG Oral Tablet [facility] ([facility]) cefdinir 300 MG Oral Capsule cefdinir 300 mg capsule cefdinir 30 0 mg capsule completed cefdinir 300 M G Oral Capsule [facility] ([facility]) Prednisone 20 MG Oral Tablet prednisone 20 mg tablet TAKE ONE TABLET BY MOUTH ONCE DAILY FOR FIVE DAYS prednisone 20 mg tablet TAKE ONE TABLET BY MOUTH ONCE DAILY FOR FIVE DAYS completed pr ednisone 20 MG Oral Tablet [facility] ([facility]) Estradiol 0.1 MG/ML Vaginal Cream estradiol 0.01% (0.1 mg/gram) vaginal cream estradiol 0.01% (0.1 mg/gram) vaginal cream completed estradiol 0.1 MG/ML Vaginal Cream [facility] ([facility]) 0.3 ML Enoxaparin sodium 100 MG/ML Prefi lled Syringe enoxaparin 30 mg/0.3 mL subcutaneous syringe INJECT 0.3 MILLILITERS SUBCUTANEOUSLY EVERY 12 HOURS FOR TWO WEEKS enoxaparin 30 mg/0.3 mL subcutaneous syr travis INJECT 0.3 MILLILITERS SUBCUTANEOUSLY EVERY 12 HOURS FOR TWO WEEKS completed 0.3 ML enoxaparin sodium 100 MG/ML Prefilled Syringe [facility] ([facility]) 0.3 ML Enoxaparin sodium 100 MG/ML Prefi lled Syringe enoxaparin 30 mg/0.3 mL subcutaneous syringe INJECT 0.3 MILLILITERS SUBCUTANEOUSLY EVERY 12 HOURS FOR TWO WEEKS enoxaparin 30 mg/0.3 mL subcutaneous syr travis INJECT 0.3 MILLILITERS SUBCUTANEOUSLY EVERY 12 HOURS FOR TWO WEEKS completed 0.3 ML enoxaparin sodium 100 MG/ML Prefilled Syringe [facility] ([facility]) Amoxicillin 500 MG / Clavulanate 125 MG Oral Tablet amoxicillin 500 mg-potassium clavulanate 125 mg tablet TAKE ONE TABLET BY MOUTH EVERY TWELVE HOURS amoxicillin 500 mg-potassium clavulanate 125 mg tablet TAKE ONE TABLET BY MOUTH EVERY TWELVE HOURS completed amoxicillin 500 MG / clavulanate 125 MG Oral Tablet [facility] ([facility]) Acetaminophen 325 MG / Oxycodone Hydroch loride 5 MG Oral Tablet oxycodone- acetaminophen 5 mg-325 mg tablet oxycodone-acetaminophen 5 mg-325 mg tablet completed acetaminop hen 325 MG / oxycodone hydrochloride 5 MG Oral Tablet [facility] ([facility]) 0.3 ML Enoxaparin sodium 100 MG/ML Prefi lled Syringe enoxaparin 30 mg/0.3 mL subcutaneous syringe INJECT 0.3 MILLILITERS SUBCUTANEOUSLY EVERY 12 HOURS FOR TWO WEEKS enoxaparin 30 mg/0.3 mL subcutaneous syr travis INJECT 0.3 MILLILITERS SUBCUTANEOUSLY EVERY 12 HOURS FOR TWO WEEKS completed 0.3 ML enoxaparin sodium 100 MG/ML Prefilled Syringe [facility] ([facility]) Ciprofloxacin 250 MG Oral Tablet ciprofl oxacin 250 mg tablet TAKE ONE TABLET BY MOUTH TWICE DAILY FOR 3 DAYS ciprofloxacin 250 mg tablet TAKE ONE TAB LET BY MOUTH TWICE DAILY FOR 3 DAYS completed ciprofloxacin 250 MG Oral Tablet [facility] ([facility]) tramadol hydrochloride 50 MG Oral Tablet tramadol 50 mg tablet TAKE ONE TABLET BY MOUTH EVERY 6 HOURS NEEDED FOR PAIN MAX DAILY DOSE FOUR TABLETS tramadol 50 mg tablet TAKE ONE TABLET BY MOUTH EVERY 6 HOURS NEEDED FOR PAIN MAX DAILY DOSE FOUR TABLETS completed tramadol hydrochloride 50 MG Oral Tablet [facility] ([facility]) tramadol hydrochloride 50 MG Oral Tablet tramadol 50 mg tablet TAKE ONE TABLET BY MOUTH EVERY 6 HOURS NEEDED FOR PAIN MAX DAILY DOSE FOUR TABLETS tramadol 50 mg tablet TAKE ONE TABLET BY MOUTH EVERY 6 HOURS NEEDED FOR PAIN MAX DAILY DOSE FOUR TABLETS completed tramadol hydrochloride 50 MG Oral Tablet [facility] ([facility]) Methylprednisolone 4 MG Oral Tablet methylprednisolone 4 mg tablet 1 tab daily methylprednisolone 4 mg tablet 1 tab daily completed methylprednisolone 4 MG Oral Tablet [facility] ([facility]) Methylprednisolone 2 MG Oral Tablet [Med rol] Medrol 2 mg tablet 1 tablet every other day Medrol 2 mg tablet 1 tablet every other day completed methylprednisolone 2 MG Oral Tablet [Medrol] [facility] ([facility]) Estradiol 0.1 MG/ML Vaginal Cream estradiol 0.01% (0.1 mg/gram) vaginal cream estradiol 0.01% (0.1 mg/gram) vaginal cream completed estradiol 0.1 MG/ML Vaginal Cream [facility] ([facility]) Ciprofloxacin 250 MG Oral Tablet ciprofl oxacin 250 mg tablet TAKE ONE TABLET BY MOUTH TWICE DAILY FOR 3 DAYS ciprofloxacin 250 mg tablet TAKE ONE TAB LET BY MOUTH TWICE DAILY FOR 3 DAYS completed ciprofloxacin 250 MG Oral Tablet [facility] ([facility]) Estradiol 0.1 MG/ML Vaginal Cream estradiol 0.01% (0.1 mg/gram) vaginal cream estradiol 0.01% (0.1 mg/gram) vaginal cream completed estradiol 0.1 MG/ML Vaginal Cream [facility] ([facility]) glimepiride 2 MG Oral Tablet glimepiride 2 mg tablet TAKE ONE TABLET BY MOUTH @8AM and TAKE ONE TABLET @8PM glimepiride 2 mg tablet TAKE ONE TABLET BY MOUTH @8AM and TAKE ONE TABLET @8PM complete d glimepiride 2 MG Oral Tablet [facility] ([facility]) Oxycodone Hydrochloride 5 MG Oral Tablet oxycodone 5 mg tablet TAKE 1 TO 2 TABLETS BY MOUTH EVERY FOUR HOURS NEEDED FOR PAIN MAX DAILY DOSE 12 CAPSULES oxycodone 5 mg tablet TAKE 1 TO 2 TABLETS BY MOUTH EVERY FOUR HOURS NEEDED FOR PAIN MAX DAILY DOSE 12 CAPSULES co mpleted oxycodone hydrochloride 5 MG Oral Tablet [facility] ([facility]) Ciprofloxacin 250 MG Oral Tablet ciprofl oxacin 250 mg tablet TAKE ONE TABLET BY MOUTH TWICE DAILY FOR 3 DAYS ciprofloxacin 250 mg tablet TAKE ONE TAB LET BY MOUTH TWICE DAILY FOR 3 DAYS completed ciprofloxacin 250 MG Oral Tablet [facility] ([facility]) Acetaminophen 325 MG / Oxycodone Hydroch loride 5 MG Oral Tablet oxycodone- acetaminophen 5 mg-325 mg tablet oxycodone-acetaminophen 5 mg-325 mg tablet completed acetaminop hen 325 MG / oxycodone hydrochloride 5 MG Oral Tablet [facility] ([facility]) Prednisone 20 MG Oral Tablet prednisone 20 mg tablet TAKE ONE TABLET BY MOUTH ONCE DAILY FOR FIVE DAYS prednisone 20 mg tablet TAKE ONE TABLET BY MOUTH ONCE DAILY FOR FIVE DAYS completed pr ednisone 20 MG Oral Tablet [facility] ([facility]) Ciprofloxacin 250 MG Oral Tablet ciprofl oxacin 250 mg tablet TAKE ONE TABLET BY MOUTH TWICE DAILY FOR 3 DAYS ciprofloxacin 250 mg tablet TAKE ONE TAB LET BY MOUTH TWICE DAILY FOR 3 DAYS completed ciprofloxacin 250 MG Oral Tablet [facility] ([facility]) Estradiol 0.1 MG/ML Vaginal Cream estradiol 0.01% (0.1 mg/gram) vaginal cream estradiol 0.01% (0.1 mg/gram) vaginal cream completed estradiol 0.1 MG/ML Vaginal Cream [facility] ([facility]) Amoxicillin 500 MG / Clavulanate 125 MG Oral Tablet amoxicillin 500 mg-potassium clavulanate 125 mg tablet TAKE ONE TABLET BY MOUTH EVERY TWELVE HOURS amoxicillin 500 mg-potassium clavulanate 125 mg tablet TAKE ONE TABLET BY MOUTH EVERY TWELVE HOURS completed amoxicillin 500 MG / clavulanate 125 MG Oral Tablet [facility] ([facility]) Amoxicillin 500 MG / Clavulanate 125 MG Oral Tablet amoxicillin 500 mg-potassium clavulanate 125 mg tablet TAKE ONE TABLET BY MOUTH EVERY TWELVE HOURS amoxicillin 500 mg-potassium clavulanate 125 mg tablet TAKE ONE TABLET BY MOUTH EVERY TWELVE HOURS completed amoxicillin 500 MG / clavulanate 125 MG Oral Tablet [facility] ([facility]) Methylprednisolone 2 MG Oral Tablet [Med rol] Medrol 2 mg tablet 1 tablet every other day Medrol 2 mg tablet 1 tablet every other day completed methylprednisolone 2 MG Oral Tablet [Medrol] [facility] ([facility]) glimepiride 1 MG Oral Tablet glimepiride 1 mg tablet glimepiride 1 mg tablet completed glimepiride 1 MG Oral Tablet [facility] ([facility]) Acetaminophen 325 MG / Oxycodone Hydroch loride 5 MG Oral Tablet oxycodone- acetaminophen 5 mg-325 mg tablet oxycodone-acetaminophen 5 mg-325 mg tablet completed acetaminop hen 325 MG / oxycodone hydrochloride 5 MG Oral Tablet [facility] ([facility]) Ciprofloxacin 250 MG Oral Tablet ciprofl oxacin 250 mg tablet TAKE ONE TABLET BY MOUTH TWICE DAILY FOR 3 DAYS ciprofloxacin 250 mg tablet TAKE ONE TAB LET BY MOUTH TWICE DAILY FOR 3 DAYS completed ciprofloxacin 250 MG Oral Tablet [facility] ([facility]) Alprazolam 1 MG Oral Tablet alprazolam 1 mg tablet alprazolam 1 mg ta blet completed alprazolam 1 MG Oral Tablet [facility] ([facility]) Doxycycline Monohydrate 100 MG Oral Caps ule doxycycline monohydrate 100 mg capsule TAKE ONE CAPSULE BY MOUTH TWICE DAILY FOR SEVEN DAYS doxycycline monohydrate 100 mg capsule TAKE ONE CAPSULE BY MOUTH TWICE DAILY FOR SEVEN DAYS completed doxycycline mo nohydrate 100 MG Oral Capsule [facility] ([facility]) Oxycodone Hydrochloride 5 MG Oral Tablet oxycodone 5 mg tablet TAKE 1 TO 2 TABLETS BY MOUTH EVERY FOUR HOURS NEEDED FOR PAIN MAX DAILY DOSE 12 CAPSULES oxycodone 5 mg tablet TAKE 1 TO 2 TABLETS BY MOUTH EVERY FOUR HOURS NEEDED FOR PAIN MAX DAILY DOSE 12 CAPSULES co mpleted oxycodone hydrochloride 5 MG Oral Tablet [facility] ([facility]) Ciprofloxacin 250 MG Oral Tablet ciprofl oxacin 250 mg tablet TAKE ONE TABLET BY MOUTH TWICE DAILY FOR 3 DAYS ciprofloxacin 250 mg tablet TAKE ONE TAB LET BY MOUTH TWICE DAILY FOR 3 DAYS completed ciprofloxacin 250 MG Oral Tablet [facility] ([facility]) glimepiride 1 MG Oral Tablet glimepiride 1 mg tablet glimepiride 1 mg tablet completed glimepiride 1 MG Oral Tablet [facility] ([facility]) Methylprednisolone 2 MG Oral Tablet [Med rol] Medrol 2 mg tablet 1 tablet every other day Medrol 2 mg tablet 1 tablet every other day completed methylprednisolone 2 MG Oral Tablet [Medrol] [facility] ([facility]) Methylprednisolone 4 MG Oral Tablet methylprednisolone 4 mg tablet 1 tab daily methylprednisolone 4 mg tablet 1 tab daily completed methylprednisolone 4 MG Oral Tablet [facility] ([facility]) Acetaminophen 325 MG / Oxycodone Hydroch loride 5 MG Oral Tablet oxycodone- acetaminophen 5 mg-325 mg tablet oxycodone-acetaminophen 5 mg-325 mg tablet completed acetaminop hen 325 MG / oxycodone hydrochloride 5 MG Oral Tablet [facility] ([facility]) tramadol hydrochloride 50 MG Oral Tablet tramadol 50 mg tablet TAKE ONE TABLET BY MOUTH EVERY 6 HOURS NEEDED FOR PAIN MAX DAILY DOSE FOUR TABLETS tramadol 50 mg tablet TAKE ONE TABLET BY MOUTH EVERY 6 HOURS NEEDED FOR PAIN MAX DAILY DOSE FOUR TABLETS completed tramadol hydrochloride 50 MG Oral Tablet [facility] ([facility]) Insurance Providers Payer name Policy type / Coverage type Policy ID Covered green party ID Covered green party's relationship to leonard Policy Leonard Plan Information [place] [id number] 1880.0 Self [id number] [place] Med[place] Part B [id number] Self [facility] Plan Commercial [id number] Self [id number] [facility] Medigap Part B [id number] Self VY [id number] [employer] [facility] Medigap Part B [id number] Self [id number] [id number] [employer] Medigap Part B [id number] Self VY [id number] [employer] [employer] Medigap Part B [id number] Self [id number] [id number] [facility] Community Plan Commercial [id number] Self [id number] [employer] [employer] Medigap Part B [id number] Self [id number] [id number] [employer] [employer] Medigap Part B [id number] Self [id number] [id number] [facility] Community Plan [employer] [id number] Self [id number] [employer] [place] [employer] Medigap Part B [id number] Self VY [id number] [employer] [place] [employer] Medigap Part B [id number] Self VY [id number] [facility] Plan Commercial [id number] Self [id number] [facility] [employer] [employer] Medigap Part B [id number] Self VY [id number] [facility] [place] [employer] Medigap Part B [id number] Self VY [id number] [facility] Plan Commercial [id number] Self [id number] [facility] [employer] Medigap Part B [id number] Self SilvanaY [id number] [facility] [employer] Medigap Part B [id number] Self SilvanaY [id number] [facility] [employer] Medigap Part B [id number] Self SilvanaY [id number] [facility] Medigap Part B [id number] Self [facility] [place] [employer] Option Medigap Part B [id number] Self [id number] [facility] [facility] Option Medigap Part B [id number] Self [id number] [id number] [facility] Plan Commercial [id number] Self [id number] [facility] Plan Commercial [id number] 2..[id number] Self [id number] [facility] Plan Commercial [id number] Self [id number] [facility] Community Plan Commercial [id number] Self [facility] Comm Plan Medicaid F [id number] SELF [id number] [facility] Community Plan Commercial [id number] Self [id number] [facility] Comm Plan Medicaid F [id number] SELF [id number] [facility] Comm Plan Medicaid F [id number] SELF [id number] Medicaid Dental S [id number] [facility] I [id number] Self [id number] [facility] I [id number] Self [id number] [employer] [place] Workers Compensation [id number] 30 [id number] [employer] ([place] Workers Compensation [id number] [facility] Comm Plan Medicaid F [id number] SELF [id number] [employer] COMMUNITY PLAN MCDHMO [id number] SP [id number] [facility] [id number] SP [id number] [facility] COMMUNITY PLAN [id number] SP [id number] UN COMMUNITY PLAN MCDHMO [id number] SP [id number] UN COMMUNITY PLAN MCDHMO [id number] SP [id number] UN COMMUNITY PLAN MCDHMO [id number] SP [id number] [facility] COMMUNITY PLAN [id number] SP [id number] [facility] Health Maintenance Organization (HMO) [id number] Self [id number] UN COMMUNITY PLAN MCDO [id number] SP [id number] [facility] COMMUNITY PLAN [id number] SP 1 [id number] SELF PAY [facility] COMMUNITY PLAN [id number] SP 1 [id number] SELF PAY SELF PAY [facility] COMMUNITY PLAN [id number] SP [id number] SELF PAY [facility] COMMUNITY PLAN [id number] SP 1 [id number] SELF PAY [facility] COMMUNITY PLAN [id number] SP 1 [id number] [facility] COMMUNITY PLAN [id number] SP 1 [id number] SELF PAY [facility] COMMUNITY PLAN [id number] SP 1 [id number] SELF PAY [facility] COMMUNITY PLAN [id number] SP [id number] SELF PAY ANSI-Not a Secondary Insurance [id number] ANSI-Not a Secondary Insurance [id number] ANSI-Medicaid [id number] ANSI-Medicaid [id number] ANSI-Not a Secondary Insurance [id number] ANSI-Not a Secondary Insurance [id number] ANSI-Medicaid [id number] ANSI-Not a Secondary Insurance [id number] ANSI-Medicaid [id number] ANSI-Not a Secondary Insurance [id number] ANSI-Medicaid [id number] Medicaid [facility] Part B [id number] 1880.0 Self [id number] ANSI-Medicaid [id number] ANSI-Not a Secondary Insurance [id number] ANSI-Medicaid [id number] ANSI-Not a Secondary Insurance [id number] ANSI-Medicaid [id number] ANSI-Not a Secondary Insurance [id number] ANSI-Not a Secondary Insurance [id number] ANSI-Medicaid [id number] ANSI-Medicaid [id number] ANSI-Not a Secondary Insurance [id number] ANSI-Medicaid [id number] ANSI-Not a Secondary Insurance [id number] Medicaid [facility] Part B [id number] 1880.0 Self [id number] [place] Part [place] [id number] 1880.0 Self [id number] [facility] [id number] S [id number] [place] Part [place] [id number] 1880.0 Self [id number] [facility] [id number] S [id number] [facility] PLAN [id number] SP 1 [id number] [place] Part [place] [id number] 1880.0 Self [id number] [place] Part [place] [id number] 1880.0 Self [id number] [facility] HEA [id number] 1 [id number] [facility] [id number] SP [id number] [facility] [id number] SP [id number] [facility] Plan - Medicaid Medicaid primitivo: [id number] Self primitivo: [id number] [place] Part B [id number] Self D Managed Care [facility] P [id number] S [id number] [employer] [id number] SP [id number] [employer] [id number] SP [id number] 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 [id number] S [id number] [employer] O [id number] O [id number] Community Health Plan-Caid Medicaid [id number] Self [employer] [id number] SP [id number] [employer] INS NO FAULT [id number] SP [id number] [employer] [place] [employer] [id number] [employer]UE [employer] [place] PLAN [id number] SP [id number] MEDICAID P [id number] S [id number] [employer] P [id number] S [id number] HMO BLUE [id number] SP [id number] UN COMMUNITY PLAN MCDO [id number] SP [id number] [facility] [id number] SP [id number] [facility] [id number] S [id number] ANSI-Medicaid [id number] ANSI-Not a Secondary Insurance [id number] ANSI-Medicaid [id number] ANSI-Not a Secondary Insurance [id number] [facility] Plan - Medicaid Medicaid [id number] Self [id number] ANSI-Not a Secondary Insurance [id number] ANSI-Medicaid [id number] ANSI-Medicaid [id number] ANSI-Not a Secondary Insurance [id number] ANSI-Medicaid [id number] ANSI-Not a Secondary Insurance [id number] ANSI-Not a Secondary Insurance [id number] ANSI-Medicaid [id number] ANSI-Not a Secondary Insurance [id number] ANSI-Medicaid [id number] ANSI-Not a Secondary Insurance [id number] ANSI-Medicaid [id number] ANSI-Not a Secondary Insurance [id number] ANSI-Medicaid [id number] ANSI-Medicaid [id number] ANSI-Not a Secondary Insurance [id number] ANSI-Medicaid [id number] ANSI-Not a Secondary Insurance [id number] ANSI-Not a Secondary Insurance [id number] ANSI-Medicaid [id number] ANSI-Not a Secondary Insurance [id number] ANSI-Medicaid [id number] ANSI-Not a Secondary Insurance [id number] ANSI-Medicaid [id number] ANSI-Not a Secondary Insurance [id number] ANSI-Medicaid [id number] ANSI-Medicaid [id number] ANSI-Not a Secondary Insurance [id number] ANSI-Not a Secondary Insurance [id number] ANSI-Medicaid [id number] ANSI-Not a Secondary Insurance [id number] ANSI-Medicaid [id number] ANSI-Medicaid [id number] ANSI-Not a Secondary Insurance [id number] ANSI-Not a Secondary Insurance [id number] ANSI-Medicaid [id number] ANSI-Not a Secondary Insurance [id number] ANSI-Medicaid [id number] ANSI-Not a Secondary Insurance [id number] ANSI-Medicaid [id number] ANSI-Medicaid [id number] ANSI-Not a Secondary Insurance [id number] ANSI-Medicaid [id number] ANSI-Not a Secondary Insurance [id number] ANSI-Medicaid [id number] ANSI-Not a Secondary Insurance [id number] Medicaid [facility] Part B [id number] Self [id number] ANSI-Medicaid [id number] ANSI-Not a Secondary Insurance [id number] ANSI-Medicaid [id number] ANSI-Not a Secondary Insurance [id number] ANSI-Not a Secondary Insurance [id number] ANSI-Medicaid [id number] ANSI-Medicaid [id number] Problems, Conditions, and Diagnoses Code Display Name Description Problem Type Effective Dates Data Source(s) N95.2 Postmenopausal atrophic vaginitis N95.2 - Postmenopausal atrophic vaginitis Diagnosis 08/11/2020 11:00:00 PM EDT 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 Z87.440 Personal history of urinary (tract) infe ctions Z87.440 - Personal history of urinary (tract) infections Diagnosis 04/07/2020 09:05:00 PM EST [facility] R35.0 Frequency of micturition R35.0 - Frequency of micturit ion Diagnosis 01/10/2020 11:00:00 PM EST [facility] R31.0 Gross hematuria R31.0 - Gross hematuria Diagnosis 1 11:00:00 PM EDT [facility] R04.0 [id number] Recurrent epistaxis Problem 11/14/2020 12:00 :00 AM EDT eCW1 ([facility]) D50.9 Iron deficiency anemia Anemia, iron deficiency Problem 07/04/2020 12:00:00 AM EDT eC1 ([facility]) K59.00 [id number] Constipation, unspecified constipation ty pe Problem 05/26/2020 12:00:00 AM EDT eCW1 ([facility]) F41.9 [id number] Anxiety Problem 05/12/2020 12:00:00 AM ES T eCW1 ([facility]) Surgeries/Procedures Procedure Description Date Indications Data Source(s) ECG ROUTINE ECG W/LEAST 12 LDS W/I&R 11/14/2020 12:00: 00 AM EDT eCW1 ([facility]) RADIOLOGIC EXAMINATION KNEE 3 VIEWS 10/23/2020 12:00:0 0 AM [facility] ) ARTHROCENTESIS ASPIR&/INJECTION MAJOR JT/BURSA 021 12:00:00 AM EDT [facility]) OFFICE OUTPATIENT VISIT 25 MINUTES 10/23/2020 12:00:00 AM EDT [facility] ([facility]) RADIOLOGIC EXAMINATION KNEE 3 VIEWS 10/23/2020 12:00:0 0 AM EDT [facility] ([facility]) OFFICE OUTPATIENT NEW 45 MINUTES 10/15/2020 12:00:00 A M EDT [facility] ([facility]) OFFICE OUTPATIENT VISIT 25 MINUTES 10/08/2020 12:00:00 AM EDT [facility] ([facility]) Spirometry 10/08/2020 12:00:00 AM EDT M EDENT ([facility]) US RETROPERITONEAL REAL TIME W/IMAGE LIMITED 12:00:00 AM EDT [facility] ([facility]) US RETROPERITONEAL REAL TIME W/IMAGE LIMITED 12:00:00 AM EDT [facility] ([facility]) ARTHROCENTESIS ASPIR&/INJECTION MAJOR JT/BURSA 021 12:00:00 AM EDT [facility] ([facility]) Cystourethroscopy,/W Injects For Chemodenervation Of The Leonel dder 07/23/2020 12:00:00 AM EDT [facility] ([facility] Cystourethroscopy, W/[employer] Cryosurgery Or Laser Garza rg 07/23/2020 12:00:00 AM EDT [facility] ([facility]) INSJ NON-NDWELLG BLADDER CATHETER 07/14/2020 12:00:00 AM EDT [facility] ([facility]) INSJ NON-NDWELLG BLADDER CATHETER 04/07/2020 12:00:00 AM EST [facility] ([facility]) INSJ NON-NDWELLG BLADDER CATHETER 04/07/2020 12:00:00 AM EST [facility] ([facility]) ARTHROCENTESIS ASPIR&/INJECTION MAJOR JT/BURSA 021 12:00:00 AM EST [facility] ([facility] ) INSJ NON-NDWELLG BLADDER CATHETER 01/10/2020 12:00:00 AM EST [facility] ([facility]) CYSTOURETHROSCOPY 12/11/2019 12:00:00 AM EDT [facility] ([facility]) BLDR IRRIGATION SMPL LAVAGE&/INSTLJ 12/11/2019 12:00:0 0 AM EDT [facility] ([facility]) Cystourethroscopy,/W Injects For Chemodenervation Of The Leonel dder 11/27/2019 12:00:00 AM EDT [facility] ([facility]) Cystourethroscopy, W/[employer] Cryosurgery Or Laser Garza rg 11/27/2019 12:00:00 AM EDT [facility] ([facility]) Results ID Date Data Source [id number] 12/24/2020 12:00:00 AM EDT [facility] Name Value Range Interpretation Code Description Data Tashia rce(s) Supporting Document(s) SARS-CoV2 Rapid Antigen Negative [facility] This lab was ordered by [facility] [place] and reported by [facility]. ID Date Data Source [id number] 11/26/2020 11:30:00 AM EDT [facility] Name Value Range Interpretation Code Description Data Tashia rce(s) Supporting Document(s) SARS-CoV-2 (COVID-19) RNA [Presence] in Respiratory specimen by PHANI with probe detection Not Detected [facility] This lab was ordered by [facility] and reported by [employer] ID Date Data Source NT-PRO BNP 11/14/2020 12:00:00 AM EDT eCW1 ([facility]) Name Value Range Interpretation Code Description Data Tashia rce(s) Supporting Document(s) 57 <125 NT-PRO BNP eCW1 ([facility]) ID Date Data Source CBC with Differential 11/14/2020 12:00:00 AM EDT eCW1 ([facility]) Name Value Range Interpretation Code Description Data Tashia rce(s) Supporting Document(s) 8.1 4.0-10.0 WHITE BLOOD COUNT eCW1 ([facility]) 3.63 4.00-5.40 RED BLOOD COUNT eCW1 ([facility]) 9.5 12.0-15.5 HEMOGLOBIN eCW1 ([facility]) 86.2 80.0-96.0 MEAN CORPUSCULAR VOLUME e CW1 ([facility]) 31.3 36.0-47.0 HEMATOCRIT eCW1 ([facility]) 30.4 32.0-36.5 MEAN CORPUSCULAR HGB CONC eCW1 ([facility]) 26.2 27.0-33.0 MEAN CORPUSCULAR HEMOGLOB IN eCW1 ([facility]) 15.8 11.5-14.5 RED CELL DISTRIBUTION WID TH eCW1 ([facility]) 342 150-450 PLATELET COUNT, AUTOMATED eCW1 ([facility]) 51.9 36.0-66.0 NEUTROPHILS % eCW1 ([facility]) 5.0 2.0-8.0 MONO % eCW1 ([facility]) 39.4 24.0-44.0 LYMPH % eCW1 ([facility]) 0.9 0.0-1.0 BASO % eCW1 ([facility]) 2.4 0.0-3.0 EOS % eCW1 ([facility]) 4.2 1.5-8.5 NEUTROPHILS # eCW1 ([facility]) 3.2 1.5-5.0 LYMPH # eCW1 ([facility]) 0.2 0.0-0.5 EOS # eCW1 ([facility]) 0.4 0.0-0.8 MONO # eCW1 ([facility]) 0.1 0.0-0.2 BASO # eCW1 ([facility]) ID Date Data Source Comprehensive Metabolic Profile (CMP) 11/14/2020 12:00:00 AM EDT eCW1 ([facility]) Name Value Range Interpretation Code Description Data Tashia rce(s) Supporting Document(s) 64 70-100 GLUCOSE, FASTING eCW1 ([facility]) 15 7-18 BLOOD UREA NITROGEN eCW1 ([facility]) 0.72 0.55-1.30 CREATININE FOR GFR eCW1 ([facility]) > 60.0 >45 GLOMERULAR FILTRATION RATE eCW 1 ([facility]) 137 136-145 SODIUM LEVEL eCW1 ([facility]) 102 98-107 CHLORIDE LEVEL eCW1 ([facility]) 4.3 3.5-5.1 POTASSIUM SERUM eCW1 ([facility]) 28 21-32 CARBON DIOXIDE LEVEL eCW1 ([facility]) 8.8 8.8-10.2 CALCIUM LEVEL eCW1 ([facility]) 21 7-37 AST/SGOT eCW1 ([facility]) 30 12-78 ALT/SGPT eCW1 ([facility]) 95 45-117 ALKALINE PHOSPHATASE eCW1 ([facility]) 0.9 0.2-1.0 BILIRUBIN,TOTAL eCW1 ([facility]) 6.8 6.4-8.2 TOTAL PROTEIN eCW1 ([facility]) 3.3 3.2-5.2 ALBUMIN eCW1 ([facility]) 0.9 1.2-2.2 ALBUMIN/GLOBULIN RATIO eCW1 ([facility]) ID Date Data Source FERRITIN 11/14/2020 12:00:00 AM EDT eCW1 ([facility]) Name Value Range Interpretation Code Description Data Tashia rce(s) Supporting Document(s) 8 8-252 FERRITIN eCW1 ([facility]) ID Date Data Source FREE T4 & TSH PANEL 11/14/2020 12:00:00 AM EDT eCW1 ([facility]) Name Value Range Interpretation Code Description Data Tashia rce(s) Supporting Document(s) 1.320 0.358-3.740 THYROID STIMULATING HORM ONE eCW1 ([facility]) 1.10 0.76-1.46 FREE T4 eCW1 ([facility]) ID Date Data Source MAGNESIUM LEVEL 11/14/2020 12:00:00 AM EDT eCW1 ([facility]) Name Value Range Interpretation Code Description Data Tashia rce(s) Supporting Document(s) 2.0 1.8-2.4 MAGNESIUM LEVEL eCW1 ([facility]) ID Date Data Source PT & APTT 11/14/2020 12:00:00 AM EDT eCW1 ([facility]) Name Value Range Interpretation Code Description Data Tashia rce(s) Supporting Document(s) 12.5 12.7-14.5 PROTHROMBIN TIME eCW1 ([facility]) 0.89 INR eCW1 ([facility]) 27.5 25.9-37.0 PARTIAL THROMBOPLASTIN TI ME eCW1 ([facility]) ID Date Data Source UA URINALYSIS 11/14/2020 12:00:00 AM EDT eCW1 ([facility]) Name Value Range Interpretation Code Description Data Tashia rce(s) Supporting Document(s) Laboratory studies (set) UA URINALYS IS eCW1 ([facility]) ID Date Data Source URINE CULTURE 11/14/2020 12:00:00 AM EDT eCW1 ([facility]) Name Value Range Interpretation Code Description Data Tashia rce(s) Supporting Document(s) Laboratory studies (set) URINE CULTU RE eCW1 ([facility]) ID Date Data Source [id number] 10/21/2020 04:25:00 PM EDT [facility] ([facility] ) Name Value Range Interpretation Code Description Data Tashia rce(s) Supporting Document(s) White Blood Count 7.7 10 4.0-10.0 Normal (applies to non-numeri c results) [facility], ) Red Blood Count 4.17 10 4.00-5.40 Normal (applies to non-numeric results) [facility] ([facility], ) Hemoglobin 11.0 g/dL 12.0-15.5 Below low normal [facility] ( [facility]) Hematocrit 35.5 % 36.0-47.0 Below low normal [facility] ( [facility]) Mean Corpuscular Hemoglobin 26.4 pg 27.0-33.0 Below low normal [facility] ([facility]) Mean Corpuscular Volume 85.1 fl 80.0-96.0 Normal ( applies to non-numeric results) [facility] ([facility]) Mean Corpuscular HGB Conc 31.0 g/dL 32.0-36.5 Below low normal [facility] ([facility]) Red Cell Distribution Width 15.9 % 11.5-14.5 Above high normal [facility] ([facility]) Platelet Count, Automated 346 10 150-450 Normal (applies to non-numeric results) [facility] ([facility]) Nucleated Red Blood Cell % 0.0 % 0-0 Normal (applies to n on-numeric results) [facility] ([facility]) 11/11/20 (TueNov 11) 09:16 AM ERICA ABERNATHY Continues to have anemia. Will further evaluate. ID Date Data Source [id number] 10/21/2020 04:25:00 PM EDT [facility] ([facility]) Name Value Range Interpretation Code Description Data Tashia rce(s) Supporting Document(s) Iron (Fe) 35 ug/dL 50-170 Below low normal [facility] ( [facility]) Total Iron Binding Capacity 487 ug/dL 250-450 Above high normal [facility] ([facility]) Percent Saturation 7.2 % 13.2-45.0 Below low normal [facility] ([facility]) 11/11/20 (TueNov 11) 09:16 AM ERICA ABERNATHY Iron deficiency noted. Continue to take iron supplement as directed. Will further evaluate. ID Date Data Source [id number] 10/21/2020 04:25:00 PM EDT [facility] ([facility]) Name Value Range Interpretation Code Description Data Tashia rce(s) Supporting Document(s) Urea nitrogen [Mass/volume] in Serum or Plasma 14 mg/dL 7 -18 Normal (applies to non-numeric results) [facility]) ID Date Data Source [id number] 10/21/2020 04:25:00 PM EDT [facility] ([facility]) Name Value Range Interpretation Code Description Data Tashia rce(s) Supporting Document(s) Creatinine For GFR 0.72 mg/dL 0.55-1.30 Normal (applies to non -numeric results) [facility] ([facility], ) Glomerular Filtration Rate Laboratory test result Normal (applies to non- numeric results) [facility] ([facility]) <content>Units are mL/min/1.73 m2</content>
<content></content>
<content>Chronic Kidney Disease Staging per NKF:</content>
<content></content>
<content>Stage I & II GFR >=60 Normal to Mildly Decreased</content>
<content>Stage III GFR 30- 59 Moderately Decreased</content>
<content>Stage IV GFR 15-29 Severely Decreased</content>
<content>Stage V GFR <15 Very Little GFR Left</content>
<content>ESRD GFR <15 on COMMUNICATION ANALYST</content>
<content></content> ID Date Data Source [id number] 10/20/2020 12:00:00 AM EDT [facility] Name Value Range Interpretation Code Description Data Tashia rce(s) Supporting Document(s) SARS-CoV-2 NEGATIVE [facility] This lab was ordered by [email or web address] [facility] and reported by [employer]. ID Date Data Source [id number] 10/20/2020 12:00:00 AM EDT [facility] ([email or web address] [facility]) Name Value Range Interpretation Code Description Data Tashia rce(s) Supporting Document(s) ID Date Data Source [id number] 10/20/2020 12:00:00 AM EDT [facility] ([email or web address] [facility]) Name Value Range Interpretation Code Description Data Tashia rce(s) Supporting Document(s) SARS-CoV-2 (COVID-19) RNA [Presence] in Respiratory specimen by PHANI with probe detection negative negative Sars-cov-2 [facility] ([email or web address] [facility]) ID Date Data Source [id number] 10/08/2020 09:54:00 AM EDT [facility] ([facility], ) Name Value Range Interpretation Code Description Data Tashia rce(s) Supporting Document(s) PDFReport Laboratory test result [facility] ([facility], ) FVC-Pred 3.44 L [facility] ([facility]) FVC-%Pred-Pre 69 L [facility] ([facility]) FVC-Pre 2.38 L [facility] ([facility]) Fev1-Pred 2.64 L [facility] ([facility]) FVC-LLN 2.70 L [facility] ([facility]) Fev1-Pre 1.77 L [facility] ([facility]) Fev1-%Pred-Pre 67 L [facility] ([facility]) Fev1-LLN 2.01 L [facility] ([facility]) Fev6-Pre 2.35 L [facility] ([facility]) Fev6-Pred 3.31 L [facility] ([facility]) Fev6-LLN 2.59 L [facility] ([facility]) Fev6-%Pred-Pre 71 L [facility] ([facility]) Sgn8naw-Gkda 77 % [facility] ([facility]) Fer7ios-Yua 74 % [facility] ([facility]) Hrp8qah-FPC 67 % [facility] ([facility]) Vrv5quc-%Pred-Pre 96 % [facility] ([facility]) Uao8bab-%Pred-Pre 102 % [facility] ([facility]) Ivf6jii-Akf 99 % [facility] ([facility]) Wkl4pvt-Iyhx 96 % [facility] ([facility]) FEFMax-Pre 5.14 L/E/sec [facility] ([facility]) FEFMax-Pred 6.37 L/E/sec [facility] ([facility]) FEFMax-%Pred-Pre 80 L/E/sec [facility] ([facility], ) FEFMax-LLN 4.55 L/E/sec [facility] ([facility]) Itw3835-%Pred-Pre 56 L/E/sec [facility] ([facility]) Osq6657-Leab 2.29 L/E/sec [facility] ([facility]) Nbh5292-Wqq 1.30 L/E/sec [facility] ([facility]) ExpTime-Pre 7.83 sec [facility] ([facility]) Wbk1035-VDE 0.97 L/E/sec [facility] ([facility]) Ojy7dfy4-Offh 80 % [facility] ([facility]) Aem3zvd8-Pgm 75 % [facility] ([facility]) Ufw2qal1-%Pred-Pre 93 % [facility] ([facility]) Qtw7imv5-FEM 71 % [facility] ([facility]) ID Date Data Source [id number] 08/11/2020 04:02:00 PM EDT [facility] ([facility] Name Value Range Interpretation Code Description Data Tashia rce(s) Supporting Document(s) Samara sp rRNA [Presence] in Vaginal fluid by DNA probe Lab oratory test result Abnormal (applies to non-numeric results) [facility] ([facility]) Gardnerella By Dna Probe Laboratory test result [facility] ([facility]) Trichomonas vaginalis rRNA [Presence] in Genital speci men by DNA probe Laboratory test result [facility] ([facility]) TESTING PERFORMED BY NUCLEIC ACID HYBRID IZATION ID Date Data Source [id number] 08/11/2020 04:02:00 PM EDT [facility] ([facility] Name Value Range Interpretation Code Description Data Tashia rce(s) Supporting Document(s) Bacteria identified in Vaginal fluid by Aerobe culture Laborator y test result [facility] ([facility]) ID Date Data Source [id number] 08/12/2020 12:21:00 PM EDT [facility] Name Value Range Interpretation Code Description Data Tashia rce(s) Supporting Document(s) SAMARA BY DNA PROBE POSITIVE NEGATIVE [facility] GARDNERELLA BY DNA PROBE NEGATIVE NEGATIVE [facility] TRICHOMONAS BY DNA PROBE NEGATIVE NEGATIVE [facility] TESTING PERFORMED BY NUCLEIC ACID HYBRI DIZATION ID Date Data Source [id number] 08/11/2020 03:39:00 PM EDT [facility] ([facility] Name Value Range Interpretation Code Description Data Tashia rce(s) Supporting Document(s) Protein [Presence] in Urine by Test strip 30 mg/dL [facility] ([facility]) Glucose [Presence] in Urine 100 mg/dL [facility] ([facility]) Ua Nitrite Laboratory test result [facility] ([facility]) Ua Leuko Laboratory test result [facility] ([facility]) Color of Urine Laboratory test result [facility] ([facility]) Blood [Presence] in Urine by Visual Laboratory test result [facility] ([facility]) Ketones [Presence] in Urine by Test strip Laboratory test result [facility] ([facility]) Clarity of Urine Laboratory test result [facility] ([facility]) pH of Urine by Test strip 7.0 5.0-7.5 [facility] ([facility]) Ua Specific [place] 1.020 1.003-1.030 [facility] NT ([facility]) Urobilinogen [Mass/volume] in Urine by Test strip 0.2 E.U./dL 0.0-1.0 [facility] ([facility]) Bilirubin.total [Presence] in Urine by Test strip Laboratory test res ult [facility] ([facility]) ID Date Data Source [id number] 08/11/2020 12:00:00 AM EDT MARILIA ([facility]) Name Value Range Interpretation Code Description Data Tashia rce(s) Supporting Document(s) ID Date Data Source [id number] 08/11/2020 12:00:00 AM EDT [facility] Name Value Range Interpretation Code Description Data Tashia rce(s) Supporting Document(s) SARS-CoV-2 NEGATIVE [facility] This lab was ordered by [facility]-COVID19 and reported by [employer]. ID Date Data Source [id number] 08/11/2020 12:00:00 AM EDT MARILIA ([facility]) Name Value Range Interpretation Code Description Data Tashia rce(s) Supporting Document(s) ID Date Data Source [id number] 08/11/2020 12:00:00 AM EDT MARILIA ([facility]) Name Value Range Interpretation Code Description Data Tashia rce(s) Supporting Document(s) ID Date Data Source [id number] 07/23/2020 09:44:00 AM EDT [facility] ([facility] Name Value Range Interpretation Code Description Data Tashia rce(s) Supporting Document(s) Glucose [Presence] in Urine Laboratory test result [facility] ([facility]) Ua Nitrite Laboratory test result ME DENT ([facility]) Protein [Presence] in Urine by Test strip Laboratory test result [facility] ([facility]) Ua Leuko Laboratory test result [facility] ([facility]) Blood [Presence] in Urine by Visual Laboratory test result [facility] ([facility]) Ketones [Presence] in Urine by Test strip Laboratory test result [facility] ([facility]) Color of Urine Laboratory test result [facility] ([facility]) Ua Specific [place] 1.025 1.003-1.030 MEDE NT ([facility]) Clarity of Urine Laboratory test result [facility] ([facility]) pH of Urine by Test strip 7.0 5.0-7.5 [facility] ([facility]) Bilirubin.total [Presence] in Urine by Test strip Laboratory test res ult [facility] ([facility]) Urobilinogen [Mass/volume] in Urine by Test strip 0.2 E.U./dL 0.0-1.0 [facility] ([facility]) ID Date Data Source [id number] 07/14/2020 03:26:00 PM EDT [facility] ([facility]) Name Value Range Interpretation Code Description Data Tashia rce(s) Supporting Document(s) Bacteria identified in Urine by Culture Laboratory test result [facility] ([facility]) <content> --------</content>
<content>Run: 07/16/20 0832 INTERFACED REPORT</content>
<content> </content>
<content>Name: Cassie Jiang Age/Sex: 65/F Location: [facility]</content>
<content>Acct: [id number] Unit: [id number] Status: REG REF Room/Bed:</content>
<content>Re07/14/20 Disch: Junior Dr: Monica Bal MD</content>
<content> </content>
<content></content>
<content>Specimen #: [id number] Ordered : 07/14/2012/25/1809</content>
<content>Collected : 07/14/2012/26/1515 By: [...] REPORT </content>
<content></content> ID Date Data Source [id number] 07/16/2020 08:32:00 AM EDT [facility] Run: 07/16/20 0832 INTERFACED REPORT Name: Cassie Jiang Age/Sex: 65/F Location: [facility] Acct: [id number] Unit: [id number] Status: REG REF Room/Bed: Re07/14/20 Disch: Att Dr: Monica Bal MD Specimen #: [id number] Ordered : 07/14/2012/25/1809 Collected : 07/14/2012/26/1515 By: [...] rce(s) Supporting Document(s) ID Date Data Source [id number] 07/14/2020 03:15:00 PM EDT [facility] ([facility]) Name Value Range Interpretation Code Description Data Tashia rce(s) Supporting Document(s) Glucose [Presence] in Urine Laboratory test result [facility] ([facility]) Ua Nitrite Laboratory test result [facility] DENT ([facility]) Protein [Presence] in Urine by Test strip 30 mg/dL [facility] ([facility]) Blood [Presence] in Urine by Visual Laboratory test result [facility] ([facility]) Ua Leuko Laboratory test result [facility] ([facility]) Clarity of Urine Laboratory test result [facility] ([facility]) Ketones [Presence] in Urine by Test strip Laboratory test result [facility] ([facility]) Color of Urine Laboratory test result [facility] ([facility]) pH of Urine by Test strip 5.0 5.0-7.5 [facility] ([facility]) Ua Specific [place] Laboratory test result 1.003-1.030 [facility] ([facility]) Bilirubin.total [Presence] in Urine by Test strip Laboratory test res ult [facility] ([facility]) Urobilinogen [Mass/volume] in Urine by Test strip 0.2 E.U./dL 0.0-1.0 [facility] ([facility]) ID Date Data Source [id number] 07/14/2020 03:07:00 PM EDT [facility] ([facility]) Name Value Range Interpretation Code Description Data Tashia rce(s) Supporting Document(s) Glucose [Presence] in Urine Laboratory test result [facility] ([facility]) Protein [Presence] in Urine by Test strip 30 mg/dL [facility] ([facility]) Ua Nitrite Laboratory test result [facility] ([facility]) Ua Leuko Laboratory test result [facility] ([facility]) Blood [Presence] in Urine by Visual Laboratory test result [facility] ([facility]) Color of Urine Laboratory test result [facility] ([facility]) Clarity of Urine Laboratory test result [facility] ([facility]) Ketones [Presence] in Urine by Test strip Laboratory test result [facility] ([facility]) pH of Urine by Test strip 5.0 5.0-7.5 [facility] ([facility]) Ua Specific [place] Laboratory test result 1.003-1.030 [facility] ([facility]) Bilirubin.total [Presence] in Urine by Test strip Laboratory test res ult [facility] ([facility]) Urobilinogen [Mass/volume] in Urine by Test strip 0.2 E.U./dL 0.0-1.0 [facility] ([facility]) ID Date Data Source [id number] 07/04/2020 12:00:00 AM EDT eC ([facility]) Name Value Range Interpretation Code Description Data Tashia rce(s) Supporting Document(s) Hemoglobin A1c/Hemoglobin.total in Blood 6.6 HEMOGLOBIN A1c [facility] ([facility]) ID Date Data Source LIPID PANEL (CARDIAC RISK) 07/04/2020 12:00:00 AM EDT eCW1 ( [facility]) Name Value Range Interpretation Code Description Data Tashia rce(s) Supporting Document(s) Cholesterol [Moles/volume] in Serum or Plasma 156 <200 CHOLESTEROL LEVEL eC1 ([facility]) Triglyceride [Mass/volume] in Serum or Plasma by calculation 92 <150 TRIGLYCERIDES LEVEL eC1 ([facility]) Cholesterol in LDL [Mass/volume] in Serum or Plasma by calculation 65 <100 LDL CHOLESTEROL eCW1 ([facility]) Cholesterol in HDL [Moles/volume] in Serum or Plasma 73 >40 HDL CHOLESTEROL eCW1 ([facility]) 83 NON-HDL-C eCW1 ([facility]) 2.136 <5 CHOLESTEROL RISK RATIO eCW1 ([facility]) ID Date Data Source IRON (FE) 05/26/2020 12:00:00 AM EDT eCW1 ([facility]) Name Value Range Interpretation Code Description Data Tashia rce(s) Supporting Document(s) 46 50-170 eCW1 ([facility]) ID Date Data Source CBC with Auto Differential 05/26/2020 12:00:00 AM EDT eCW1 ( [facility]) Name Value Range Interpretation Code Description Data Tashia rce(s) Supporting Document(s) 33.8 36.0-47.0 eCW1 ([facility]) 10.8 12.0-15.5 eCW1 ([facility]) 7.7 4.0-10.0 eCW1 ([facility]) 89.9 80.0-96.0 eCW1 ([facility]) 3.76 4.00-5.40 eCW1 ([facility]) 14.1 11.5-14.5 eCW1 ([facility]) 32.0 32.0-36.5 eCW1 ([facility]) 28.7 27.0-33.0 eCW1 ([facility]) 343 150-450 eCW1 ([facility]) 4.7 0.0-3.0 eCW1 ([facility]) 32.1 24.0-44.0 eCW1 ([facility]) 6.1 2.0-8.0 eCW1 ([facility]) 55.9 36.0-66.0 eCW1 ([facility]) 0.0 0-0 eCW1 ([facility]) 4.3 1.5-8.5 eCW1 ([facility]) 0.4 0-3.0 eCW1 ([facility]) 0.8 0.0-1.0 eCW1 ([facility]) 0.1 0.0-0.2 eCW1 ([facility]) 2.5 1.5-5.0 eCW1 ([facility]) 0.5 0.0-0.8 eCW1 ([facility]) 0.4 0.0-0.5 eCW1 ([facility]) ID Date Data Source [id number] 05/12/2020 12:00:00 AM EST eCW1 ([facility]) Name Value Range Interpretation Code Description Data Tashia rce(s) Supporting Document(s) Microalbumin/Creatinine [Ratio] in Urine 8.9 0.0-30.0 eCW1 ([facility]) Albumin/Creatinine [Mass Ratio] in Urine 9.8 eCW1 ([facility]) Microalbumin/Creatinine [Mass Ratio] in Urine 109.0 eCW1 ([facility]) ID Date Data Source [id number] 04/29/2020 06:29:00 AM EST [facility] Name Value Range Interpretation Code Description Data Tashia rce(s) Supporting Document(s) SARS-CoV-2 (COVID 19) NEGATIVE - SARS-CoV-2 (COVID19) [facility] This lab was ordered by [facility] a nd reported by [facility]. ID Date Data Source [id number] 04/09/2020 10:42:00 AM EST [facility] Run: 04/09/20 1043 INTERFACED REPORT Name: Cassie Jiang Age/Sex: 64/F Location: [facility] Acct: [id number] Unit: [id number] Status: REG REF Room/Bed: Re04/07/20 Disch: Att Dr: Monica Bal MD Specimen #: [id number] Ordered : 04/07/2003/27/1856 Collected : 04/07/2003/27/1329 By: [...] rce(s) Supporting Document(s) ID Date Data Source [id number] 04/07/2020 01:30:00 PM EST [facility] ([facility]) Name Value Range Interpretation Code Description Data Tashia rce(s) Supporting Document(s) Glucose [Presence] in Urine Laboratory test result [facility] ([facility]) Ua Nitrite Laboratory test result [facility]ENT ([facility]) Protein [Presence] in Urine by Test strip Laboratory test result [facility] ([facility]) Ua Leuko Laboratory test result [facility] ([facility]) Blood [Presence] in Urine by Visual Laboratory test result [facility] ([facility]) Color of Urine Laboratory test result [facility] ([facility]) Ketones [Presence] in Urine by Test strip Laboratory test result [facility] ([facility]) Clarity of Urine Laboratory test result [facility] ([facility]) pH of Urine by Test strip 5.0 5.0-7.5 [facility] ([facility]) Ua Specific [place] 1.025 1.003-1.030 MEDE NT ([facility]) Bilirubin.total [Presence] in Urine by Test strip Laboratory test res ult [facility] ([facility]) Urobilinogen [Mass/volume] in Urine by Test strip 0.2 E.U./dL 0.0-1.0 [facility] ([facility]) ID Date Data Source [id number] 04/07/2020 01:30:00 PM EST [facility] ([facility]) Name Value Range Interpretation Code Description Data Tashia rce(s) Supporting Document(s) Bacteria identified in Urine by Culture Laboratory test result [facility] ([facility]) <content>Run: 04/09/20 1043 INTERFACED REPORT</content>
<content> ntent>Name: Cassie Jiang Age/Sex: 64/F Location: [facility]</content>
<content>Acct: [id number] Unit: [id number] Status: REG REF Room/Bed:</content>
<content>Re04/07/20 Disch: Att Dr: Monica Bal MD</content>
<content> </content>
<content></content>
<content>Specimen #: [id number] Ordered : 04/07/2003/27/1856</content>
<content>Collected : 04/07/2003/27/1329 By: [...] REPORT </content>
<content></content> ID Date Data Source [id number] 04/07/2020 01:23:00 PM EST [facility] ([facility]) Name Value Range Interpretation Code Description Data Tashia rce(s) Supporting Document(s) Glucose [Presence] in Urine Laboratory test result [facility] ([facility]) Protein [Presence] in Urine by Test strip Laboratory test result [facility] ([facility]) Ua Leuko Laboratory test result [facility] ([facility]) Ua Nitrite Laboratory test result [facility] ([facility]) Color of Urine Laboratory test result [facility] ([facility]) Blood [Presence] in Urine by Visual Laboratory test result [facility] ([facility]) Ketones [Presence] in Urine by Test strip Laboratory test result [facility] ([facility]) Clarity of Urine Laboratory test result [facility] ([facility]) Ua Specific [place] Laboratory test result 1.003-1.030 [facility] ([facility]) pH of Urine by Test strip 5.0 5.0-7.5 [facility] ([facility]) Urobilinogen [Mass/volume] in Urine by Test strip 0.2 E.U./dL 0.0-1.0 [facility] ([facility]) Bilirubin.total [Presence] in Urine by Test strip Laboratory test res ult [facility] ([facility]) ID Date Data Source [id number] 03/26/2020 12:00:00 AM EST MARILIA ([facility]) Name Value Range Interpretation Code Description Data Tashia rce(s) Supporting Document(s) ID Date Data Source [id number] 03/26/2020 12:00:00 AM EST MARILIA ([facility]) Name Value Range Interpretation Code Description Data Tashia rce(s) Supporting Document(s) SARS-CoV-2 (COVID-19) RNA [Presence] in Respiratory specimen by PHANI with probe detection negative negative Sars-cov-2 MARILIA ([facility]) ID Date Data Source [id number] 03/26/2020 12:00:00 AM EST [facility] ([facility]) Name Value Range Interpretation Code Description Data Tashia rce(s) Supporting Document(s) ID Date Data Source [id number] 03/26/2020 12:00:00 AM EST MARILIA ([facility]) Name Value Range Interpretation Code Description Data Tashia rce(s) Supporting Document(s) SARS-CoV-2 (COVID-19) RNA [Presence] in Respiratory specimen by PHANI with probe detection negative negative Sars-cov-2 MARILIA ([facility]) ID Date Data Source [id number] 03/26/2020 12:00:00 AM EST [facility] Name Value Range Interpretation Code Description Data Tashia rce(s) Supporting Document(s) [facility] was ordered by [facility]-COVID19 and reported by [employer]. ID Date Data Source [id number] 03/26/2020 12:00:00 AM EST MARILIA ([facility]) Name Value Range Interpretation Code Description Data Tashia rce(s) Supporting Document(s) ID Date Data Source [id number] 03/26/2020 12:00:00 AM EST MARILIA ([facility]) Name Value Range Interpretation Code Description Data Tashia rce(s) Supporting Document(s) SARS-CoV-2 (COVID-19) RNA [Presence] in Respiratory specimen by PHANI with probe detection negative negative Sars-cov-2 MARILIA ([facility]) ID Date Data Source [id number] 03/26/2020 12:00:00 AM EST MARILIA ([facility]) Name Value Range Interpretation Code Description Data Tashia rce(s) Supporting Document(s) ID Date Data Source [id number] 03/26/2020 12:00:00 AM EST MARILIA ([facility]) Name Value Range Interpretation Code Description Data Tashia rce(s) Supporting Document(s) SARS-CoV-2 (COVID-19) RNA [Presence] in Respiratory specimen by PHANI with probe detection negative negative Sars-cov-2 MARILIA ([facility]) ID Date Data Source [id number] 03/26/2020 12:00:00 AM EST MARILIA ([facility]) Name Value Range Interpretation Code Description Data Tashia rce(s) Supporting Document(s) ID Date Data Source [id number] 03/26/2020 12:00:00 AM EST MARILIA ([facility]) Name Value Range Interpretation Code Description Data Tashia rce(s) Supporting Document(s) SARS-CoV-2 (COVID-19) RNA [Presence] in Respiratory specimen by PHANI with probe detection negative negative Sars-cov-2 MARILIA ([facility]) ID Date Data Source [id number] 03/26/2020 12:00:00 AM EST MARILIA ([facility]) Name Value Range Interpretation Code Description Data Tashia rce(s) Supporting Document(s) ID Date Data Source [id number] 03/26/2020 12:00:00 AM EST MARILIA ([facility]) Name Value Range Interpretation Code Description Data Tashia rce(s) Supporting Document(s) SARS-CoV-2 (COVID-19) RNA [Presence] in Respiratory specimen by PHANI with probe detection negative negative Sars-cov-2 MARILIA ([facility]) ID Date Data Source [id number] 03/26/2020 12:00:00 AM EST MARILIA ([facility]) Name Value Range Interpretation Code Description Data Tashia rce(s) Supporting Document(s) ID Date Data Source [id number] 03/26/2020 12:00:00 AM EST MARILIA ([facility]) Name Value Range Interpretation Code Description Data Tashia rce(s) Supporting Document(s) SARS-CoV-2 (COVID-19) RNA [Presence] in Respiratory specimen by PHANI with probe detection negative negative Sars-cov-2 MARILIA ([facility]) ID Date Data Source [id number] 03/12/2020 10:08:00 AM EST MEDENT ([facility] ) Name Value Range Interpretation Code Description Data Tashia rce(s) Supporting Document(s) PDFReport Laboratory test result MEDENT ([facility], ) FVC-Pred 3.47 L MED[facility] ([facility], ) FVC-%Pred-Pre 73 L [facility] ([facility]) FVC-Pre 2.54 L [facility] ([facility]) FVC-LLN 2.73 L [facility] ([facility]) Fev1-%Pred-Pre 72 L MED[facility] ([facility]) Fev1-Pre 1.92 L [facility] ([facility]) Fev1-Pred 2.67 L [facility] ([facility]) Fev6-Pred 3.34 L [facility] ([facility]) Fev1-LLN 2.04 L [facility] ([facility]) Fev6-%Pred-Pre 75 L [facility] ([facility]) Rqb1szc-Ofbt 77 % MED[facility] ([facility]) Fev6-Pre 2.51 L [facility] ([facility]) Fev6-LLN 2.62 L [facility] ([facility]) Tzs0yhr-Lmk 76 % [facility] ([facility]) Kdh7ayh-%Pred-Pre 97 % [facility] ([facility]) Zfx2iqm-ATM 68 % [facility] ([facility]) Osr2yga-%Pred-Pre 102 % [facility] ([facility]) Mng4qws-Qubh 96 % [facility] ([facility]) Gmg7gky-Ukf 99 % [facility] ([facility]) FEFMax-Pre 5.72 L/E/sec [facility] ([facility]) FEFMax-Pred 6.43 L/E/sec [facility] ([facility]) FEFMax-%Pred-Pre 88 L/E/sec [facility] ([facility]) Hmo7409-Kolm 2.34 L/E/sec [facility] ([facility]) FEFMax-LLN 4.61 L/E/sec [facility] ([facility]) Cnp3236-Ebg 1.46 L/E/sec [facility] ([facility]) Aar1556-QRG 1.02 L/E/sec [facility] ([facility]) ExpTime-Pre 7.33 sec [facility] ([facility]) Vhy9039-%Pred-Pre 62 L/E/sec [facility] ([facility]) Vzn2jaj4-Cqx 76 % [facility] ([facility]) Lio4uht2-%Pred-Pre 95 % [facility] ([facility]) Nbm4ihp2-Oerj 80 % [facility] ([facility]) Hcj4kwv6-YJU 71 % [facility] ([facility]) ID Date Data Source [id number] 01/10/2020 02:03:00 PM EST [facility] ([facility]) Name Value Range Interpretation Code Description Data Tashia rce(s) Supporting Document(s) Bacteria identified in Vaginal fluid by Aerobe culture Laborator y test result [facility] ([facility]) ID Date Data Source [id number] 01/11/2020 11:49:00 AM EST [facility] Name Value Range Interpretation Code Description Data Tashia rce(s) Supporting Document(s) SAMARA BY DNA PROBE NEGATIVE NEGATIVE [facility] GARDNERELLA BY DNA PROBE POSITIVE NEGATIVE A [facility] TRICHOMONAS BY DNA PROBE NEGATIVE NEGATIVE [facility] TESTING PERFORMED BY NUCLEIC ACID HYBRI DIZATION ID Date Data Source [id number] 01/10/2020 02:03:00 PM EST [facility] ([facility] Name Value Range Interpretation Code Description Data Tashia rce(s) Supporting Document(s) Gardnerella By Dna Probe Laboratory test result Abnormal (applies to non- numeric results) [facility] ([facility]) Samara sp rRNA [Presence] in Vaginal fluid by DNA probe Lab oratory test result [facility] ([facility]) Trichomonas vaginalis rRNA [Presence] in Genital speci men by DNA probe Laboratory test result [facility] ([facility]) TESTING PERFORMED BY NUCLEIC ACID HYBRID IZATION ID Date Data Source [id number] 01/12/2020 11:21:00 AM EST [facility] Run: 01/12/20 1121 INTERFACED REPORT Name: Cassie Jiang Age/Sex: 64/F Location: [facility] Acct: [id number] Unit: [id number] Status: REG REF Room/Bed: Re01/10/20 Disch: Att Dr: Amira Garg Specimen #: [id number] Ordered : 01/10/2007/24/1930 Collected : 01/10/2007/24/1401 By: [...] rce(s) Supporting Document(s) ID Date Data Source [id number] 01/10/2020 02:02:00 PM EST [facility] ([facility]) Name Value Range Interpretation Code Description Data Tashia rce(s) Supporting Document(s) Bacteria identified in Urine by Culture Laboratory test result [facility] ([facility]) <content> --------</content>
<content>Run: 01/12/20 1121 INTERFACED REPORT</content>
<content> </content>
<content>Name: Cassie Jiang Age/Sex: 64/F Location: LAB</content>
<content>Acct: [id number] Unit: [id number] Status: REG REF Room/Bed:</content>
<content>Re01/10/20 Disch: Junior Dr: Amira Garg</content>
<content> </content>
<content></content>
<content>Specimen #: [id number] Ordered : 01/10/2007/24/1930</content>
<content>Collected : 01/10/2007/24/1401 By: [...] REPORT </content>
<content></content> ID Date Data Source [id number] 01/10/2020 02:01:00 PM EST [facility] ([facility]) Name Value Range Interpretation Code Description Data Tashia rce(s) Supporting Document(s) Glucose [Presence] in Urine Laboratory test result [facility] ([facility]) Protein [Presence] in Urine by Test strip Laboratory test result [facility] ([facility]) Ua Nitrite Laboratory test result [facility] ([facility]) Ua Leuko Laboratory test result [facility] ([facility]) Blood [Presence] in Urine by Visual Laboratory test result [facility] ([facility]) Ketones [Presence] in Urine by Test strip 15 mg/dL [facility] ([facility]) Color of Urine Laboratory test result [facility] ([facility]) pH of Urine by Test strip 6.5 5.0-7.5 [facility] ([facility]) Ua Specific [place] 1.020 1.003-1.030 [facility] NT ([facility]) Clarity of Urine Laboratory test result [facility] ([facility]) Urobilinogen [Mass/volume] in Urine by Test strip 0.2 E.U./dL 0.0-1.0 [facility] ([facility]) Bilirubin.total [Presence] in Urine by Test strip Laboratory test res ult [facility] ([facility]) ID Date Data Source [id number] 01/10/2020 01:44:00 PM EST [facility] ([facility]) Name Value Range Interpretation Code Description Data Tashia rce(s) Supporting Document(s) Glucose [Presence] in Urine Laboratory test result [facility] ([facility]) Ua Nitrite Laboratory test result [facility] ([facility]) Protein [Presence] in Urine by Test strip Laboratory test result [facility] ([facility]) Ua Leuko Laboratory test result [facility] ([facility]) Blood [Presence] in Urine by Visual Laboratory test result [facility] ([facility]) Ketones [Presence] in Urine by Test strip 15 mg/dL [facility] ([facility]) Clarity of Urine Laboratory test result [facility] ([facility]) Color of Urine Laboratory test result [facility] ([facility]) Ua Specific [place] 1.025 1.003-1.030 [facility] NT ([facility]) pH of Urine by Test strip 6.0 5.0-7.5 [facility] ([facility]) Urobilinogen [Mass/volume] in Urine by Test strip 0.2 E.U./dL 0.0-1.0 [facility] ([facility]) Bilirubin.total [Presence] in Urine by Test strip Laboratory test res ult [facility] ([facility]) ID Date Data Source [id number] 12/13/2019 12:42:00 PM EDT [facility] Run: 12/13/19 1243 INTERFACED REPORT Name: Cassie Jiang Age/Sex: 64/F Location: [facility] Acct: [id number] Unit: [id number] Status: REG REF Room/Bed: Re12/11/19 Disch: Junior Dr: Monica Bal MD Specimen #: [id number] Ordered : 12/11/1908/24/2102 Collected : 12/11/1908/25/1547 By: [...] rce(s) Supporting Document(s) ID Date Data Source [id number] 12/11/2019 03:48:00 PM EDT [facility] ([facility]) Name Value Range Interpretation Code Description Data Tashia rce(s) Supporting Document(s) Bacteria identified in Urine by Culture Laboratory test result [facility] ([facility]) <content> --------</content>
<content>Run: 12/13/19 1243 INTERFACED REPORT</content>
<content> </content>
<content>Name: Cassie Jiang Age/Sex: 64/F Location: [facility]</content>
<content>Acct: [id number] Unit: [id number] Status: REG REF Room/Bed:</content>
<content>Re12/11/19 Disch: Junior Dr: Monica Bal MD</content>
<content> </content>
<content></content>
<content>Specimen #: [id number] Ordered : 12/11/1908/24/2102</content>
<content>Collected : 12/11/1908/25/1547 By: [...] REPORT </content>
<content></content> ID Date Data Source [id number] 11/28/2019 12:00:00 AM EDT [facility] ([facility]) Name Value Range Interpretation Code Description Data Tashia rce(s) Supporting Document(s) ID Date Data Source [id number] 11/28/2019 12:00:00 AM EDT [facility] Name Value Range Interpretation Code Description Data Tashia rce(s) Supporting Document(s) SARS-CoV-2 [facility] This lab was ordered by [facility]-COVID[facility] and reported by [employer]. ID Date Data Source [id number] 11/28/2019 12:00:00 AM EDT [facility] ([facility]) Name Value Range Interpretation Code Description Data Tashia rce(s) Supporting Document(s) ID Date Data Source [id number] 11/28/2019 12:00:00 AM EDT [facility] ([facility]) Name Value Range Interpretation Code Description Data Tashia rce(s) Supporting Document(s) ID Date Data Source [id number] 11/28/2019 12:00:00 AM EDT [facility] ([facility]) Name Value Range Interpretation Code Description Data Tashia rce(s) Supporting Document(s) ID Date Data Source [id number] 11/28/2019 12:00:00 AM EDT [facility] ([facility]) Name Value Range Interpretation Code Description Data Tashia rce(s) Supporting Document(s) ID Date Data Source [id number] 11/28/2019 12:00:00 AM EDT [facility] ([facility]) Name Value Range Interpretation Code Description Data Tashia rce(s) Supporting Document(s) ID Date Data Source [id number] 11/28/2019 12:00:00 AM EDT [facility] ([facility]) Name Value Range Interpretation Code Description Data Tashia rce(s) Supporting Document(s) ID Date Data Source [id number] 11/28/2019 12:00:00 AM EDT [facility] ([facility]) Name Value Range Interpretation Code Description Data Tashia rce(s) Supporting Document(s) ID Date Data Source [id number] 11/28/2019 12:00:00 AM EDT [facility] ([facility]) Name Value Range Interpretation Code Description Data Tashia rce(s) Supporting Document(s) ID Date Data Source [id number] 11/28/2019 12:00:00 AM EDT [facility] ([facility]) Name Value Range Interpretation Code Description Data Tashia rce(s) Supporting Document(s) ID Date Data Source [id number] 11/28/2019 12:00:00 AM EDT [facility] ([facility]) Name Value Range Interpretation Code Description Data Tashia rce(s) Supporting Document(s) ID Date Data Source [id number] 11/27/2019 11:57:00 AM EDT [facility] ([facility]) Name Value Range Interpretation Code Description Data Tashia rce(s) Supporting Document(s) Protein [Presence] in Urine by Test strip Laboratory test result [facility] ([facility]) Glucose [Presence] in Urine Laboratory test result [facility] ([facility]) Ua Nitrite Laboratory test result [facility] ([facility]) Color of Urine Laboratory test result [facility] ([facility]) Ua Leuko Laboratory test result [facility] ([facility]) Blood [Presence] in Urine by Visual Laboratory test result [facility] ([facility]) Clarity of Urine Laboratory test result [facility] ([facility]) Ketones [Presence] in Urine by Test strip Laboratory test result [facility] ([facility]) Ua Specific [place] Laboratory test result 1.003-1.030 [facility] ([facility]) Urobilinogen [Mass/volume] in Urine by Test strip 0.2 E.U./dL 0.0-1.0 [facility] ([facility]) Bilirubin.total [Presence] in Urine by Test strip Laboratory test res ult [facility] ([facility]) pH of Urine by Test strip 5.5 5.0-7.5 [facility] ([facility]) ID Date Data Source [id number] 11/23/2019 12:00:00 AM EDT [facility] ([facility]) Name Value Range Interpretation Code Description Data Tashia rce(s) Supporting Document(s) ID Date Data Source [id number] 11/23/2019 12:00:00 AM EDT [facility] Name Value Range Interpretation Code Description Data Tashia rce(s) Supporting Document(s) [facility] by [facility] and reported by [employer]. ID Date Data Source [id number] 11/23/2019 12:00:00 AM EDT [facility] ([facility]) Name Value Range Interpretation Code Description Data Tashia rce(s) Supporting Document(s) ID Date Data Source [id number] 11/23/2019 12:00:00 AM EDT [facility] ([facility]) Name Value Range Interpretation Code Description Data Tashia rce(s) Supporting Document(s) ID Date Data Source [id number] 11/23/2019 12:00:00 AM EDT [facility] ([facility]) Name Value Range Interpretation Code Description Data Tashia rce(s) Supporting Document(s) ID Date Data Source [id number] 11/23/2019 12:00:00 AM EDT [facility] ([facility]) Name Value Range Interpretation Code Description Data Tashia rce(s) Supporting Document(s) ID Date Data Source [id number] 11/23/2019 12:00:00 AM EDT [facility] ([facility]) Name Value Range Interpretation Code Description Data Tashia rce(s) Supporting Document(s) ID Date Data Source [id number] 11/23/2019 12:00:00 AM EDT [facility] ([facility]) Name Value Range Interpretation Code Description Data Tashia rce(s) Supporting Document(s) ID Date Data Source [id number] 11/23/2019 12:00:00 AM EDT [facility] ([facility]) Name Value Range Interpretation Code Description Data Tashia rce(s) Supporting Document(s) ID Date Data Source [id number] 11/23/2019 12:00:00 AM EDT [facility] ([facility]) Name Value Range Interpretation Code Description Data Tashia rce(s) Supporting Document(s) ID Date Data Source [id number] 11/23/2019 12:00:00 AM EDT [facility] ([facility]) Name Value Range Interpretation Code Description Data Tashia rce(s) Supporting Document(s) ID Date Data Source [id number] 11/23/2019 12:00:00 AM EDT [facility] ([facility]) Name Value Range Interpretation Code Description Data Tashia rce(s) Supporting Document(s) ID Date Data Source [id number] 11/23/2019 12:00:00 AM EDT [facility] ([facility]) Name Value Range Interpretation Code Description Data Tashia rce(s) Supporting Document(s) ID Date Data Source [id number] 11/02/2019 12:00:00 AM EDT [facility] Name Value Range Interpretation Code Description Data Tashia rce(s) Supporting Document(s) SARS-CoV-2 [facility] This lab was ordered by [facility] and reported by [employer]. ID Date Data Source [id number] 11/02/2019 12:00:00 AM EDT [facility] ([facility]) Name Value Range Interpretation Code Description Data Tashia rce(s) Supporting Document(s) ID Date Data Source [id number] 11/02/2019 12:00:00 AM EDT [facility] ([facility]) Name Value Range Interpretation Code Description Data Tashia rce(s) Supporting Document(s) ID Date Data Source [id number] 11/02/2019 12:00:00 AM EDT [facility] ([facility]) Name Value Range Interpretation Code Description Data Tashia rce(s) Supporting Document(s) ID Date Data Source [id number] 11/02/2019 12:00:00 AM EDT [facility] ([facility]) Name Value Range Interpretation Code Description Data Tashia rce(s) Supporting Document(s) ID Date Data Source [id number] 11/02/2019 12:00:00 AM EDT [facility] ([facility]) Name Value Range Interpretation Code Description Data Tashia rce(s) Supporting Document(s) ID Date Data Source [id number] 11/02/2019 12:00:00 AM EDT [facility] ([facility]) Name Value Range Interpretation Code Description Data Tashia rce(s) Supporting Document(s) ID Date Data Source [id number] 11/02/2019 12:00:00 AM EDT [facility] ([facility]) Name Value Range Interpretation Code Description Data Tashia rce(s) Supporting Document(s) ID Date Data Source [id number] 11/02/2019 12:00:00 AM EDT [facility] ([facility]) Name Value Range Interpretation Code Description Data Tashia rce(s) Supporting Document(s) ID Date Data Source [id number] 11/02/2019 12:00:00 AM EDT [facility] ([facility]) Name Value Range Interpretation Code Description Data Tashia rce(s) Supporting Document(s) ID Date Data Source [id number] 11/02/2019 12:00:00 AM EDT [facility] ([facility]) Name Value Range Interpretation Code Description Data Tashia rce(s) Supporting Document(s) ID Date Data Source [id number] 11/02/2019 12:00:00 AM EDT [facility] ([facility]) Name Value Range Interpretation Code Description Data Tashia rce(s) Supporting Document(s) ID Date Data Source [id number] 11/02/2019 12:00:00 AM EDT [facility] ([facility]) Name Value Range Interpretation Code Description Data Tashia rce(s) Supporting Document(s) ID Date Data Source [id number] 11/02/2019 12:00:00 AM EDT [facility] ([facility]) Name Value Range Interpretation Code Description Data Tashia rce(s) Supporting Document(s) ID Date Data Source [id number] 11/02/2019 12:00:00 AM EDT [facility] ([facility]) Name Value Range Interpretation Code Description Data Tashia rce(s) Supporting Document(s) ID Date Data Source [id number] 11/02/2019 12:00:00 AM EDT [facility] ([facility]) Name Value Range Interpretation Code Description Data Tashia rce(s) Supporting Document(s) Procedure Social History Code Duration Value Status Description Data Source(s ) Smoking 12/20/2020 12:00:00 AM EDT Never Smoker completed Never S moker eCW1 (On License [facility]) Smoking 11/14/2020 12:00:00 AM EDT Never Smoker completed Never S moker eCW1 (On [facility] Of [facility]) Smoking 11/14/2020 12:00:00 AM EDT Never Smoker completed Never S moker eCW1 (On [facility]) Smoking 11/14/2020 12:00:00 AM EDT Never Smoker completed Never S moker eCW1 (On [facility] Of [facility]) Smoking 11/14/2020 12:00:00 AM EDT Never Smoker completed Never S moker eCW1 (On [facility] Of [facility]) Smoking 11/14/2020 12:00:00 AM EDT Never Smoker completed Never S moker eCW1 (On [facility]) Smoking 11/14/2020 12:00:00 AM EDT Never Smoker completed Never S moker eCW1 ([facility]) Smoking 11/14/2020 12:00:00 AM EDT Never Smoker completed Never S moker eCW1 ([facility]) Smoking 11/14/2020 12:00:00 AM EDT Never Smoker completed Never S moker eCW1 ([facility]) Smoking 11/14/2020 12:00:00 AM EDT Never Smoker completed Never S moker eCW1 ([facility]) Smoking 11/14/2020 12:00:00 AM EDT Never Smoker completed Never S moker eCW1 ([facility]) Smoking 11/14/2020 12:00:00 AM EDT Never Smoker completed Never S moker eCW1 ([facility]) Smoking 11/14/2020 12:00:00 AM EDT Never Smoker completed Never S moker eCW1 ([facility]) Smoking 10/21/2020 12:00:00 AM EDT Never Smoker completed Never S moker eCW1 ([facility]) Smoking 10/21/2020 12:00:00 AM EDT Never Smoker completed Never S moker eCW1 ([facility]) Smoking 10/21/2020 12:00:00 AM EDT Never Smoker completed Never S moker eCW1 ([facility]) Smoking 10/21/2020 12:00:00 AM EDT Never Smoker completed Never S moker eCW1 ([facility]) Smoking 10/21/2020 12:00:00 AM EDT Never Smoker completed Never S moker eCW1 (On [facility]) Smoking 10/08/2020 12:00:00 AM EDT Patient has never smoked co mpleted Patient has never smoked [facility] ([facility] ) Smoking 09/22/2020 12:00:00 AM EDT Never Smoker completed Never S moker eCW1 ([facility]) Smoking 09/22/2020 12:00:00 AM EDT Never Smoker completed Never S moker eCW1 ([facility]) Smoking 08/11/2020 12:00:00 AM EDT Never Smoked Cigarettes com pleted Never Smoked Cigarettes [facility] ([facility]) Smoking 07/04/2020 12:00:00 AM EDT Never Smoker completed Never S moker eCW1 ([facility]) Smoking 07/04/2020 12:00:00 AM EDT Never Smoker completed Never S moker eCW1 ([facility]) Smoking 07/04/2020 12:00:00 AM EDT Never Smoker completed Never S moker eCW1 ([facility]) Smoking 07/04/2020 12:00:00 AM EDT Never Smoker completed Never S moker eCW1 ([facility]) Smoking 07/04/2020 12:00:00 AM EDT Never Smoker completed Never S moker eCW1 ([facility]) Smoking 07/04/2020 12:00:00 AM EDT Never Smoker completed Never S moker eCW1 ([facility]) Smoking 07/04/2020 12:00:00 AM EDT Never Smoker completed Never S moker eCW1 ([facility]) Smoking 07/04/2020 12:00:00 AM EDT Never Smoker completed Never S moker eCW1 ([facility]) Smoking 07/04/2020 12:00:00 AM EDT Never Smoker completed Never S moker eCW1 ([facility]) Smoking 07/04/2020 12:00:00 AM EDT Never Smoker completed Never S moker eCW1 ([facility]) Smoking 07/04/2020 12:00:00 AM EDT Never Smoker completed Never S moker eCW1 ([facility]) Smoking 05/26/2020 12:00:00 AM EDT Never Smoker completed Never S moker eCW1 ([facility]) Smoking 05/26/2020 12:00:00 AM EDT Never Smoker completed Never S moker eCW1 ([facility]) Smoking 05/26/2020 12:00:00 AM EDT Never Smoker completed Never S moker eCW1 ([facility]) Smoking 05/26/2020 12:00:00 AM EDT Never Smoker completed Never S moker eCW1 ([facility]) Smoking 05/26/2020 12:00:00 AM EDT Never Smoker completed Never S moker eCW1 ([facility]) Smoking 05/26/2020 12:00:00 AM EDT Never Smoker completed Never S moker eCW1 ([facility]) Smoking 05/26/2020 12:00:00 AM EDT Never Smoker completed Never S moker eCW1 ([facility]) Smoking 05/26/2020 12:00:00 AM EDT Never Smoker completed Never S moker eCW1 ([facility]) Smoking 05/26/2020 12:00:00 AM EDT Never Smoker completed Never S moker eCW1 ([facility]) Smoking 05/26/2020 12:00:00 AM EDT Never Smoker completed Never S moker eCW1 ([facility]) Smoking 05/26/2020 12:00:00 AM EDT Never Smoker completed Never S moker eCW1 ([facility]) Smoking 05/12/2020 12:00:00 AM EST Never Smoker completed Never S moker eCW1 ([facility]) Smoking 05/12/2020 12:00:00 AM EST Never Smoker completed Never S moker eCW1 ([facility]) Smoking 05/12/2020 12:00:00 AM EST Never Smoker completed Never S moker eCW1 (On [facility] Of [facility]) Vital Signs ID Date Data Source UNK Name Value Range Interpretation Code Description Data Source(s) Body temperature 96.9 [degF] 96.9 [degF] eCW1 ( On [facility]) Respiratory rate 18 /min 18 /min eCW1 ([facility]) Heart rate 88 /min 88 /min eCW1 ([facility]) Body mass index (BMI) [Ratio] 35.80 kg/m2 35.80 kg/m2 [facility] (On License Of [facility]) Body height 66 [in_i] 66 [in_i] eCW1 ([facility]) Body weight 100.61 kg 100.61 kg W1 ([facility]) Body weight 221.8 [lb_av] 221.8 [lb_av] eCW1 ([facility]) Diastolic blood pressure 78 mm[Hg] 78 mm[Hg] eCW1 (On [facility] Of [facility]) Systolic blood pressure 122 mm[Hg] 122 mm[Hg] e CW1 (On [facility] Of [facility]) Body temperature 96.9 [degF] 96.9 [degF] eCW1 ( On License Of [facility]) Respiratory rate 18 /min 18 /min eCW1 ([facility]) Heart rate 88 /min 88 /min eCW1 ([facility]) Body mass index (BMI) [Ratio] 35.80 kg/m2 35.80 kg/m2 eCW1 (On [facility] Of [facility]) Body height 66 [in_i] 66 [in_i] eCW1 ([facility]) Body weight 100.61 kg 100.61 kg eCW1 ([facility]) Body weight 221.8 [lb_av] 221.8 [lb_av] eCW1 ([facility]) Diastolic blood pressure 78 mm[Hg] 78 mm[Hg] eCW1 ([facility]) Systolic blood pressure 122 mm[Hg] 122 mm[Hg] e CW1 ([facility]) Diastolic blood pressure 62 mm[Hg] 62 mm[Hg] eCW1 (On License Of [facility]) Systolic blood pressure 128 mm[Hg] 128 mm[Hg] e CW1 (On License Of [facility]) Body temperature 97.4 [degF] 97.4 [degF] eCW1 ( On License Of [facility]) Respiratory rate 18 /min 18 /min eCW1 ([facility]) Heart rate 105 /min 105 /min eCW1 ([facility]) Body mass index (BMI) [Ratio] 36.44 kg/m2 36.44 kg/m2 eCW1 (On License Of [facility]) Body height 66 [in_i] 66 [in_i] eCW1 ([facility]) Body weight 102.42 kg 102.42 kg eCW1 ([facility]) Body weight 225.8 [lb_av] 225.8 [lb_av] eCW1 ([facility]) Body surface area Derived from formula 2.11 m2 2.11 m2 MEDENT ([facility], ) Body weight 103.421 kg 103.421 kg MEDENT ([facility] ) [place] body weight 130 [lb_av] 130 [lb_av] MEDEN T ([facility], ) Body mass index (BMI) [Ratio] 36.8 kg/m2 36.8 k g/m2 [facility]ENT [facility] Body weight 228.00 [lb_av] 228.00 [lb_av] DEMARCUSSARAH T ([facility], ) Body height 66 [in_i] 66 [in_i] MEDREMY ([facility], ) 5'6" Diastolic blood pressure 64 mm[Hg] 64 mm[Hg] EVELYNE ([facility]) Systolic blood pressure 112 mm[Hg] 112 mm[Hg] Bridger KOHLER ([facility], ) Body weight 224 [lb_av] 224 [lb_av] MARILIA ([facility]) Systolic blood pressure 128 mm[Hg] 128 mm[Hg] A THENA ([facility]) Body mass index (BMI) [Ratio] 36.2 kg/m2 36.2 k g/m2 MARILIA ([facility]) Body height 66 [in_i] 66 [in_i] MARILIA ([facility]) Diastolic blood pressure 74 mm[Hg] 74 mm[Hg] MARILIA ([facility]) Body weight 224 [lb_av] 224 [lb_av] MARILIA ([facility]) Systolic blood pressure 128 mm[Hg] 128 mm[Hg] A THENA ([facility]) Body mass index (BMI) [Ratio] 36.2 kg/m2 36.2 k g/m2 MARILIA ([facility]) Body height 66 [in_i] 66 [in_i] MARILIA ([facility]) Diastolic blood pressure 74 mm[Hg] 74 mm[Hg] MARILIA ([facility]) Body weight 224 [lb_av] 224 [lb_av] MARILIA ([facility]) Systolic blood pressure 128 mm[Hg] 128 mm[Hg] A THENA ([facility]) Body mass index (BMI) [Ratio] 36.2 kg/m2 36.2 k g/m2 MARILIA ([facility]) Body height 66 [in_i] 66 [in_i] MARILIA ([facility]) Diastolic blood pressure 74 mm[Hg] 74 mm[Hg] MARILIA ([facility]) Body surface area Derived from formula 2.10 m2 2.10 m2 MEDREMY ([facility]) Body weight 101.606 kg 101.606 kg [facility] ([facility]) [place] body weight 130 [lb_av] 130 [lb_av] MEDEN T ([facility]) Body mass index (BMI) [Ratio] 36.2 kg/m2 36.2 k g/m2 [facility] ([facility]) Body weight 224.00 [lb_av] 224.00 [lb_av] [employer] ([facility]) Body height 66 [in_i] 66 [in_i] [facility] ([facility]) 5'6" Oxygen saturation in Arterial blood by Pulse oximetry 96 % 96 % [facility] ([facility]) Heart rate 95 /min 95 /min [facility] ([facility]) Diastolic blood pressure 84 mm[Hg] 84 mm[Hg] [facility] ([facility]) Systolic blood pressure 132 mm[Hg] 132 [facility] Diastolic blood pressure 72 mm[Hg] 72 mm[Hg] eCW1 (On License Of [facility]) Systolic blood pressure 116 mm[Hg] 116 mm[Hg] e CW1 (On License Of [facility]) Body temperature 97.7 [degF] 97.7 [degF] eCW1 ( On License Of [facility]) Respiratory rate 18 /min 18 /min eCW1 ([facility]) Heart rate 91 /min 91 /min eCW1 ([facility]) Body mass index (BMI) [Ratio] 36.96 kg/m2 36.96 kg/m2 eCW1 (On License Of [facility]) Body height 66 [in_i] 66 [in_i] eCW1 ([facility]) Body weight 229 [lb_av] 229 [lb_av] eCW1 ([facility]) Systolic blood pressure 115 mm[Hg] 115 mm[Hg] A THENA ([facility]) Diastolic blood pressure 77 mm[Hg] 77 mm[Hg] MARILIA ([facility]) Systolic blood pressure 115 mm[Hg] 115 mm[Hg] A THENA ([facility]) Diastolic blood pressure 77 mm[Hg] 77 mm[Hg] MARILIA ([facility]) Systolic blood pressure 115 mm[Hg] 115 mm[Hg] A THENA ([facility]) Diastolic blood pressure 77 mm[Hg] 77 mm[Hg] MARILIA ([facility]) Systolic blood pressure 115 mm[Hg] 115 mm[Hg] A THENA ([facility]) Diastolic blood pressure 77 mm[Hg] 77 mm[Hg] MARILIA ([facility]) Systolic blood pressure 115 mm[Hg] 115 mm[Hg] A THENA ([facility]) Diastolic blood pressure 77 mm[Hg] 77 mm[Hg] MARILIA ([facility]) Body mass index (BMI) [Ratio] 35.2 kg/m2 35.2 k g/m2 MEDENT ([facility]) Body weight 218.00 [lb_av] 218.00 [lb_av] MEDEN T ([facility]) Body height 66 [in_i] 66 [in_i] MEDENT ([facility]) 5'6" Diastolic blood pressure 70 mm[Hg] 70 mm[Hg] eCW1 (On License [facility]) Systolic blood pressure 122 mm[Hg] 122 mm[Hg] e CW1 (On License Of [facility]) Body temperature 97.1 [degF] 97.1 [degF] eCW1 ( On License Of [facility]) Respiratory rate 20 /min 20 /min eCW1 ([facility]) Heart rate 94 /min 94 /min eCW1 ([facility]) Body mass index (BMI) [Ratio] 39.02 kg/m2 39.02 kg/m2 W1 (On License Of [facility]) Body height 66 [in_i] 66 [in_i] eCW1 ([facility]) Body weight 241.8 [lb_av] 241.8 [lb_av] eCW1 ([facility]) Diastolic blood pressure 68 mm[Hg] 68 mm[Hg] eCW1 (On License Of [facility]) Systolic blood pressure 110 mm[Hg] 110 mm[Hg] e CW1 (On License Of [facility]) Body temperature 98.3 [degF] 98.3 [degF] eCW1 ( On License Of [facility]) Respiratory rate 18 /min 18 /min eCW1 ([facility]) Heart rate 96 /min 96 /min eCW1 ([facility]) Body mass index (BMI) [Ratio] 36.86 kg/m2 36.86 kg/m2 eCW1 (On License Of [facility]) Body height 66 [in_i] 66 [in_i] eCW1 ([facility]) Body weight 228.4 [lb_av] 228.4 [lb_av] eCW1 ([facility]) Diastolic blood pressure 78 mm[Hg] 78 mm[Hg] eCW1 (On License Of [facility]) Systolic blood pressure 102 mm[Hg] 102 mm[Hg] e CW1 (On License Of [facility]) Body temperature 97.8 [degF] 97.8 [degF] eCW1 ( On License Of [facility]) Respiratory rate 18 /min 18 /min eCW1 ([facility]) Heart rate 95 /min 95 /min eCW1 ([facility]) Body mass index (BMI) [Ratio] 36.96 kg/m2 36.96 kg/m2 eCW1 (On License Of [facility]) Body height 66 [in_i] 66 [in_i] eCW1 ([facility]) Body weight 229 [lb_av] 229 [lb_av] eCW1 ([facility]) Systolic blood pressure 134 mm[Hg] 134 mm[Hg] A THENA ([facility]) Diastolic blood pressure 85 mm[Hg] 85 mm[Hg] MARILIA ([facility]) Systolic blood pressure 134 mm[Hg] 134 mm[Hg] A THENA ([facility]) Diastolic blood pressure 85 mm[Hg] 85 mm[Hg] MARILIA ([facility]) Systolic blood pressure 134 mm[Hg] 134 mm[Hg] A THENA ([facility]) Diastolic blood pressure 85 mm[Hg] 85 mm[Hg] MARILIA ([facility]) Systolic blood pressure 134 mm[Hg] 134 mm[Hg] A THENA ([facility]) Diastolic blood pressure 85 mm[Hg] 85 mm[Hg] MARILIA ([facility]) Systolic blood pressure 134 mm[Hg] 134 mm[Hg] A THENA ([facility]) Diastolic blood pressure 85 mm[Hg] 85 mm[Hg] MARILIA ([facility]) Systolic blood pressure 134 mm[Hg] 134 mm[Hg] A THENA ([facility]) Diastolic blood pressure 85 mm[Hg] 85 mm[Hg] MARILIA ([facility]) Body surface area Derived from formula 2.12 m2 2.12 m2 [facility] ([facility]) Body weight 103.874 kg 103.874 kg [facility] ([facility]) [place] body weight 130 [lb_av] 130 [lb_av] MEDEN T ([facility]) Body mass index (BMI) [Ratio] 37.0 kg/m2 37.0 k g/m2 [facility] ([facility]) Body weight 229.00 [lb_av] 229.00 [lb_av] MEDEN T ([facility]) Body height 66 [in_i] 66 [in_i] [facility] ([facility]) 5'6" Oxygen saturation in Arterial blood by Pulse oximetry 98 % 98 % [facility] ([facility]) Room Air Heart rate 88 /min 88 /min [facility] ([facility]) Diastolic blood pressure 76 mm[Hg] 76 mm[Hg] [facility] ([facility]) Systolic blood pressure 126 mm[Hg] 126 [facility]Hg[facility] Body surface area Derived from formula 2.12 m2 2.12 m2 [facility] ([facility]) Body weight 103.874 kg 103.874 kg [facility] ([facility]) [place] body weight 130 [lb_av] 130 [lb_av] MEDEN T ([facility]) Body mass index (BMI) [Ratio] 37.0 kg/m2 37.0 k g/m2 [facility] ([facility]) Body weight 229.00 [lb_av] 229.00 [lb_av] RASHAD Hugo ([facility]) Body height 66 [in_i] 66 [in_i] [facility] ([facility]) 5'6" Oxygen saturation in Arterial blood by Pulse oximetry 98 % 98 % [facility] ([facility]) Room Air [place] body weight 130 [lb_av] 130 [lb_av] RASHAD Hugo ([facility]) Body height 66 [in_i] 66 [in_i] [facility] ([facility]) 5'6" Patient Treatment Plan of Care Planned Activity Planned Date Details Description Data Source (s) NITROFURANTOIN, MACROCRYSTALS 25 MG / Ni trofurantoin, Monohydrate 75 MG Oral Capsule [Macrobid] 11/17/2020 12:00:00 AM EDT eC W1 (On License Of [facility]) NITROFURANTOIN, MACROCRYSTALS 25 MG / Ni trofurantoin, Monohydrate 75 MG Oral Capsule [Macrobid] 11/17/2020 12:00:00 AM EDT eC W1 (On License Of [facility]) NITROFURANTOIN, MACROCRYSTALS 25 MG / Ni trofurantoin, Monohydrate 75 MG Oral Capsule [Macrobid] 11/17/2020 12:00:00 AM EDT eC W1 (On License Of [facility]) NITROFURANTOIN, MACROCRYSTALS 25 MG / Ni trofurantoin, Monohydrate 75 MG Oral Capsule [Macrobid] 11/17/2020 12:00:00 AM EDT eC W1 (On License Of [facility]) NITROFURANTOIN, MACROCRYSTALS 25 MG / Ni trofurantoin, Monohydrate 75 MG Oral Capsule [Macrobid] 11/17/2020 12:00:00 AM EDT eC W1 (On License Of [facility]) NITROFURANTOIN, MACROCRYSTALS 25 MG / Ni trofurantoin, Monohydrate 75 MG Oral Capsule [Macrobid] 11/17/2020 12:00:00 AM EDT eC W1 (On License Of [facility]) NITROFURANTOIN, MACROCRYSTALS 25 MG / Ni trofurantoin, Monohydrate 75 MG Oral Capsule [Macrobid] 11/17/2020 12:00:00 AM EDT eC W1 (On License Of [facility]) NITROFURANTOIN, MACROCRYSTALS 25 MG / Ni trofurantoin, Monohydrate 75 MG Oral Capsule [Macrobid] 11/17/2020 12:00:00 AM EDT eC W1 (On License Of [facility]) NITROFURANTOIN, MACROCRYSTALS 25 MG / Ni trofurantoin, Monohydrate 75 MG Oral Capsule [Macrobid] 11/17/2020 12:00:00 AM EDT eC W1 (On License Of [facility]) NITROFURANTOIN, MACROCRYSTALS 25 MG / Ni trofurantoin, Monohydrate 75 MG Oral Capsule [Macrobid] 11/17/2020 12:00:00 AM EDT eC W1 (On License Of [facility]) NITROFURANTOIN, MACROCRYSTALS 25 MG / Ni trofurantoin, Monohydrate 75 MG Oral Capsule [Macrobid] 11/17/2020 12:00:00 AM EDT eC W1 (On License Of [facility]) NITROFURANTOIN, MACROCRYSTALS 25 MG / Ni trofurantoin, Monohydrate 75 MG Oral Capsule [Macrobid] 11/17/2020 12:00:00 AM EDT eC W1 (On License Of [facility]) Mupirocin 0.02 MG/MG Topical Ointment 11/14/2020 12:00:00 AM EDT eCW1 (On License Of [facility]) ferric carboxymaltose 50 MG/ML Injectable Solution [In jectafer] 11/14/2020 12:00:00 AM EDT eCW1 ([facility]) Mupirocin 0.02 MG/MG Topical Ointment 11/14/2020 12:00:00 AM EDT eCW1 (On License Of [facility]) ferric carboxymaltose 50 MG/ML Injectable Solution [In jectafer] 11/14/2020 12:00:00 AM EDT eCW1 ([facility]) Mupirocin 0.02 MG/MG Topical Ointment 11/14/2020 12:00:00 AM EDT eCW1 (On License Of [facility]) ferric carboxymaltose 50 MG/ML Injectable Solution [In jectafer] 11/14/2020 12:00:00 AM EDT eCW1 ([facility]) Mupirocin 0.02 MG/MG Topical Ointment 11/14/2020 12:00:00 AM EDT eCW1 (On License Of [facility]) ferric carboxymaltose 50 MG/ML Injectable Solution [In jectafer] 11/14/2020 12:00:00 AM EDT eCW1 ([facility]) Mupirocin 0.02 MG/MG Topical Ointment 11/14/2020 12:00:00 AM EDT eCW1 (On License Of [facility]) ferric carboxymaltose 50 MG/ML Injectable Solution [In jectafer] 11/14/2020 12:00:00 AM EDT eCW1 ([facility]) Mupirocin 0.02 MG/MG Topical Ointment 11/14/2020 12:00:00 AM EDT eCW1 (On License Of [facility]) ferric carboxymaltose 50 MG/ML Injectable Solution [In jectafer] 11/14/2020 12:00:00 AM EDT eCW1 ([facility]) Mupirocin 0.02 MG/MG Topical Ointment 11/14/2020 12:00:00 AM EDT eCW1 (On License Of [facility]) ferric carboxymaltose 50 MG/ML Injectable Solution [In jectafer] 11/14/2020 12:00:00 AM EDT eCW1 ([facility]) Mupirocin 0.02 MG/MG Topical Ointment 11/14/2020 12:00:00 AM EDT eCW1 (On [facility] Of [facility]) ferric carboxymaltose 50 MG/ML Injectable Solution [In jectafer] 11/14/2020 12:00:00 AM EDT eCW1 ([facility]) Mupirocin 0.02 MG/MG Topical Ointment 11/14/2020 12:00:00 AM EDT eCW1 (On [facility] Of [facility]) ferric carboxymaltose 50 MG/ML Injectable Solution [In jectafer] 11/14/2020 12:00:00 AM EDT eCW1 ([facility]) Mupirocin 0.02 MG/MG Topical Ointment 11/14/2020 12:00:00 AM EDT eCW1 (On [facility] Of [facility]) ferric carboxymaltose 50 MG/ML Injectable Solution [In jectafer] 11/14/2020 12:00:00 AM EDT eCW1 ([facility]) Mupirocin 0.02 MG/MG Topical Ointment 11/14/2020 12:00:00 AM EDT eCW1 (On [facility] Of [facility]) ferric carboxymaltose 50 MG/ML Injectable Solution [In jectafer] 11/14/2020 12:00:00 AM EDT eCW1 ([facility]) Mupirocin 0.02 MG/MG Topical Ointment 11/14/2020 12:00:00 AM EDT eCW1 (On [facility] Of [facility]) ferric carboxymaltose 50 MG/ML Injectable Solution [In jectafer] 11/14/2020 12:00:00 AM EDT eCW1 ([facility]) Mupirocin 0.02 MG/MG Topical Ointment 11/14/2020 12:00:00 AM EDT eCW1 (On [facility] Of [facility]) ferric carboxymaltose 50 MG/ML Injectable Solution [In jectafer] 11/14/2020 12:00:00 AM EDT eCW1 ([facility]) Blood Glucose Test - 11/03/2020 12:00:00 AM EDT eCW1 (On License Of [facility]) Lancets - 11/03/2020 12:00:00 AM EDT e CW1 (On License Of [facility]) Glucometer 11/03/2020 12:00:00 AM EDT e CW1 (On License Of [facility]) Glucometer 11/03/2020 12:00:00 AM EDT e CW1 (On License Of [facility]) Blood Glucose Test - 11/03/2020 12:00:00 AM EDT eCW1 (On License Of [facility]) Lancets - 11/03/2020 12:00:00 AM EDT e CW1 (On License Of [facility]) Blood Glucose Test - 11/03/2020 12:00:00 AM EDT eCW1 (On [facility] Of [facility]) Lancets - 11/03/2020 12:00:00 AM EDT e CW1 (On License Of [facility]) Glucometer 11/03/2020 12:00:00 AM EDT e CW1 (On License Of [facility]) 60 ACTUAT Fluticasone propionate 0.25 MG /ACTUAT / salmeterol 0.05 MG/ACTUAT Dry Powder Inhaler [Advair] 07/07/2020 12:00:00 AM EDT eCW1 (On License Of [facility]) 60 ACTUAT Fluticasone propionate 0.25 MG /ACTUAT / salmeterol 0.05 MG/ACTUAT Dry Powder Inhaler [Advair] 07/07/2020 12:00:00 AM EDT eCW1 (On License Of [facility]) 60 ACTUAT Fluticasone propionate 0.25 MG /ACTUAT / salmeterol 0.05 MG/ACTUAT Dry Powder Inhaler [Advair] 07/07/2020 12:00:00 AM EDT eCW1 (On License Of [facility]) 60 ACTUAT Fluticasone propionate 0.25 MG /ACTUAT / salmeterol 0.05 MG/ACTUAT Dry Powder Inhaler [Advair] 07/07/2020 12:00:00 AM EDT eCW1 (On License Of [facility]) 60 ACTUAT Fluticasone propionate 0.25 MG /ACTUAT / salmeterol 0.05 MG/ACTUAT Dry Powder Inhaler [Advair] 07/07/2020 12:00:00 AM EDT eCW1 (On License Of [facility]) 60 ACTUAT Fluticasone propionate 0.25 MG /ACTUAT / salmeterol 0.05 MG/ACTUAT Dry Powder Inhaler [Advair] 07/07/2020 12:00:00 AM EDT eCW1 (On License Of [facility]) 60 ACTUAT Fluticasone propionate 0.25 MG /ACTUAT / salmeterol 0.05 MG/ACTUAT Dry Powder Inhaler [Advair] 07/07/2020 12:00:00 AM EDT eCW1 (On [facility] Of [facility]) 60 ACTUAT Fluticasone propionate 0.25 MG /ACTUAT / salmeterol 0.05 MG/ACTUAT Dry Powder Inhaler [Advair] 07/07/2020 12:00:00 AM EDT eCW1 (On [facility] Of [facility]) 60 ACTUAT Fluticasone propionate 0.25 MG /ACTUAT / salmeterol 0.05 MG/ACTUAT Dry Powder Inhaler [Advair] 07/07/2020 12:00:00 AM EDT eCW1 (On [facility] Of [facility]) 60 ACTUAT Fluticasone propionate 0.25 MG /ACTUAT / salmeterol 0.05 MG/ACTUAT Dry Powder Inhaler [Advair] 07/07/2020 12:00:00 AM EDT eCW1 (On License Of [facility]) 60 ACTUAT Fluticasone propionate 0.25 MG /ACTUAT / salmeterol 0.05 MG/ACTUAT Dry Powder Inhaler [Advair] 07/07/2020 12:00:00 AM EDT eCW1 (On [facility] Of [facility]) 60 ACTUAT Fluticasone propionate 0.25 MG /ACTUAT / salmeterol 0.05 MG/ACTUAT Dry Powder Inhaler [Advair] 07/07/2020 12:00:00 AM EDT eCW1 (On License Of [facility]) POLYETHYLENE GLYCOL 3350 142 MG/ML Oral Solution [Dawn lax] 05/26/2020 12:00:00 AM EDT eCW1 ([facility]) POLYETHYLENE GLYCOL 3350 142 MG/ML Oral Solution [Dawn lax] 05/26/2020 12:00:00 AM EDT eCW1 ([facility]) POLYETHYLENE GLYCOL 3350 142 MG/ML Oral Solution [Dawn lax] 05/26/2020 12:00:00 AM EDT eCW1 ([facility]) POLYETHYLENE GLYCOL 3350 142 MG/ML Oral Solution [Dawn lax] 05/26/2020 12:00:00 AM EDT eCW1 ([facility]) POLYETHYLENE GLYCOL 3350 142 MG/ML Oral Solution [Dawn lax] 05/26/2020 12:00:00 AM EDT eCW1 ([facility]) POLYETHYLENE GLYCOL 3350 142 MG/ML Oral Solution [Dawn lax] 05/26/2020 12:00:00 AM EDT eCW1 ([facility]) POLYETHYLENE GLYCOL 3350 142 MG/ML Oral Solution [Dawn lax] 05/26/2020 12:00:00 AM EDT eCW1 ([facility]) POLYETHYLENE GLYCOL 3350 142 MG/ML Oral Solution [Dawn lax] 05/26/2020 12:00:00 AM EDT eCW1 ([facility]) POLYETHYLENE GLYCOL 3350 142 MG/ML Oral Solution [Dawn lax] 05/26/2020 12:00:00 AM EDT eCW1 ([facility]) POLYETHYLENE GLYCOL 3350 142 MG/ML Oral Solution [Dawn lax] 05/26/2020 12:00:00 AM EDT eCW1 ([facility]) Cyclobenzaprine hydrochloride 10 MG Oral Tablet 02/07/2020 12:00:00 AM EST eCW1 (On License Of [facility]) Cyclobenzaprine hydrochloride 10 MG Oral Tablet 02/07/2020 12:00:00 AM EST eCW1 (On License Of [facility]) Cyclobenzaprine hydrochloride 10 MG Oral Tablet 02/07/2020 12:00:00 AM EST eCW1 (On License Of [facility]) Cyclobenzaprine hydrochloride 5 MG Oral Tablet 02/07/2020 12:00:00 AM EST eCW1 (On License Of [facility]) Amitriptyline Hydrochloride 25 MG Oral Tablet 12/06/2019 12:00:00 A M EDT eCW1 (On License Of [facility]) Amitriptyline Hydrochloride 25 MG Oral Tablet 12/06/2019 12:00:00 A M EDT eCW1 (On License Of [facility]) Amitriptyline Hydrochloride 25 MG Oral Tablet 12/06/2019 12:00:00 A M EDT eCW1 (On License Of [facility]) Amitriptyline Hydrochloride 25 MG Oral Tablet 12/06/2019 12:00:00 A M EDT eCW1 (On License Of [facility]) Amitriptyline Hydrochloride 25 MG Oral Tablet 12/06/2019 12:00:00 A M EDT eCW1 (On License Of [facility]) Amitriptyline Hydrochloride 25 MG Oral Tablet 12/06/2019 12:00:00 A M EDT eCW1 (On License Of [facility]) Alprazolam 1 MG Oral Tablet MARILIA ([facility]) Amoxicillin 500 MG / Clavulanate 125 MG Oral Tablet [facility] ([facility]) cefdinir 300 MG Oral Capsule MAR[facility] ([facility]) Ciprofloxacin 250 MG Oral Tablet [facility] ([facility]) Doxycycline Monohydrate 100 MG Oral Capsule [facility] ([facility]) 0.3 ML Enoxaparin sodium 100 MG/ML Prefilled Syringe MARILIA ([facility]) Estradiol 0.1 MG/ML Vaginal Cream MARILIA ([facility]) glimepiride 1 MG Oral Tablet [facility] ([facility]) glimepiride 2 MG Oral Tablet [facility] ([facility]) Methylprednisolone 2 MG Oral Tablet [Medrol] [facility] ([facility]) Methylprednisolone 4 MG Oral Tablet [facility] ([facility]) Oxycodone Hydrochloride 5 MG Oral Tablet [facility] ([facility]) Acetaminophen 325 MG / Oxycodone Hydrochloride 5 MG Oral Tablet [facility] ([facility]) Prednisone 20 MG Oral Tablet [facility] ([facility]) tramadol hydrochloride 50 MG Oral Tablet [facility] ([facility]) glimepiride 1 MG Oral Tablet [facility] ([facility]) glimepiride 2 MG Oral Tablet [facility] ([facility]) 0.3 ML Enoxaparin sodium 100 MG/ML Prefilled Syringe MAR[facility]IA ([facility]) Amoxicillin 500 MG / Clavulanate 125 MG Oral Tablet [facility] ([facility]) Ciprofloxacin 250 MG Oral Tablet [facility] ([facility]) Estradiol 0.1 MG/ML Vaginal Cream MAR[facility]IA ([facility]) Doxycycline Monohydrate 100 MG Oral Capsule [facility] ([facility]) Methylprednisolone 2 MG Oral Tablet [Medrol] [facility]IA ([facility]) Methylprednisolone 4 MG Oral Tablet [facility] ([facility]) Oxycodone Hydrochloride 5 MG Oral Tablet [facility] ([facility]) tramadol hydrochloride 50 MG Oral Tablet [facility] ([facility]) Acetaminophen 325 MG / Oxycodone Hydrochloride 5 MG Oral Tablet [facility] ([facility]) Prednisone 20 MG Oral Tablet [facility] ([facility]) Alprazolam 1 MG Oral Tablet [facility] ([facility]) Amoxicillin 500 MG / Clavulanate 125 MG Oral Tablet [facility] ([facility]) cefdinir 300 MG Oral Capsule [facility] ([facility]) Ciprofloxacin 250 MG Oral Tablet [facility] ([facility]) Doxycycline Monohydrate 100 MG Oral Capsule [facility] ([facility]) 0.3 ML Enoxaparin sodium 100 MG/ML Prefilled Syringe [facility] ([facility]) Estradiol 0.1 MG/ML Vaginal Cream [facility] ([facility]) Methylprednisolone 2 MG Oral Tablet [Medrol] [facility] ([facility]) Methylprednisolone 4 MG Oral Tablet [facility] ([facility]) Oxycodone Hydrochloride 5 MG Oral Tablet [facility] ([facility]) Acetaminophen 325 MG / Oxycodone Hydrochloride 5 MG Oral Tablet [facility] ([facility]) Prednisone 20 MG Oral Tablet [facility] ([facility]) tramadol hydrochloride 50 MG Oral Tablet [facility] ([facility]) Alprazolam 1 MG Oral Tablet [facility] ([facility]) Amoxicillin 500 MG / Clavulanate 125 MG Oral Tablet [facility] ([facility]) cefdinir 300 MG Oral Capsule [facility] ([facility]) Ciprofloxacin 250 MG Oral Tablet [facility] ([facility]) Doxycycline Monohydrate 100 MG Oral Capsule [facility] ([facility]) 0.3 ML Enoxaparin sodium 100 MG/ML Prefilled Syringe [facility] ([facility]) Estradiol 0.1 MG/ML Vaginal Cream [facility] ([facility]) Methylprednisolone 2 MG Oral Tablet [Medrol] [facility] ([facility]) Methylprednisolone 4 MG Oral Tablet [facility] ([facility]) Oxycodone Hydrochloride 5 MG Oral Tablet [facility] ([facility]) Acetaminophen 325 MG / Oxycodone Hydrochloride 5 MG Oral Tablet [facility] ([facility]) Prednisone 20 MG Oral Tablet [facility] ([facility]) tramadol hydrochloride 50 MG Oral Tablet [facility] ([facility]) Alprazolam 1 MG Oral Tablet [facility] ([facility]) Amoxicillin 500 MG / Clavulanate 125 MG Oral Tablet [facility] ([facility]) cefdinir 300 MG Oral Capsule [facility] ([facility]) Ciprofloxacin 250 MG Oral Tablet [facility] ([facility]) Doxycycline Monohydrate 100 MG Oral Capsule [facility] ([facility]) 0.3 ML Enoxaparin sodium 100 MG/ML Prefilled Syringe [facility] ([facility]) Estradiol 0.1 MG/ML Vaginal Cream [facility] ([facility]) Methylprednisolone 2 MG Oral Tablet [Medrol] [facility] ([facility]) Methylprednisolone 4 MG Oral Tablet [facility] ([facility]) Oxycodone Hydrochloride 5 MG Oral Tablet [facility] ([facility]) Acetaminophen 325 MG / Oxycodone Hydrochloride 5 MG Oral Tablet [facility] ([facility]) Prednisone 20 MG Oral Tablet [facility] ([facility]) tramadol hydrochloride 50 MG Oral Tablet [facility] ([facility]) Alprazolam 1 MG Oral Tablet [facility] ([facility]) Amoxicillin 500 MG / Clavulanate 125 MG Oral Tablet [facility] ([facility]) cefdinir 300 MG Oral Capsule [facility] ([facility]) Ciprofloxacin 250 MG Oral Tablet [facility] ([facility]) Doxycycline Monohydrate 100 MG Oral Capsule [facility] ([facility]) 0.3 ML Enoxaparin sodium 100 MG/ML Prefilled Syringe [facility] ([facility]) Estradiol 0.1 MG/ML Vaginal Cream [facility] ([facility]) Methylprednisolone 2 MG Oral Tablet [Medrol] [facility] ([facility]) Methylprednisolone 4 MG Oral Tablet [facility] ([facility]) Oxycodone Hydrochloride 5 MG Oral Tablet [facility] ([facility]) Acetaminophen 325 MG / Oxycodone Hydrochloride 5 MG Oral Tablet [facility] ([facility]) Prednisone 20 MG Oral Tablet [facility] ([facility]) tramadol hydrochloride 50 MG Oral Tablet [facility] ([facility]) Amoxicillin 500 MG / Clavulanate 125 MG Oral Tablet [facility] ([facility]) Ciprofloxacin 250 MG Oral Tablet [facility] ([facility]) Cyclobenzaprine hydrochloride 5 MG Oral Tablet [facility] ([facility]) Doxycycline Monohydrate 100 MG Oral Capsule [facility] ([facility]) 0.3 ML Enoxaparin sodium 100 MG/ML Prefilled Syringe [facility] ([facility]) Estradiol 0.1 MG/ML Vaginal Cream [facility] ([facility]) glimepiride 1 MG Oral Tablet [facility] ([facility]) Methylprednisolone 2 MG Oral Tablet [Medrol] [facility] ([facility]) Methylprednisolone 4 MG Oral Tablet [facility] ([facility]) Oxycodone Hydrochloride 5 MG Oral Tablet [facility] ([facility]) Acetaminophen 325 MG / Oxycodone Hydrochloride 5 MG Oral Tablet [facility] ([facility]) Prednisone 20 MG Oral Tablet [facility] ([facility]) tramadol hydrochloride 50 MG Oral Tablet [facility] ([facility]) Amoxicillin 500 MG / Clavulanate 125 MG Oral Tablet [facility] ([facility]) Ciprofloxacin 250 MG Oral Tablet [facility] ([facility]) Cyclobenzaprine hydrochloride 5 MG Oral Tablet [facility] ([facility]) Doxycycline Monohydrate 100 MG Oral Capsule [facility] ([facility]) 0.3 ML Enoxaparin sodium 100 MG/ML Prefilled Syringe [facility] ([facility]) Estradiol 0.1 MG/ML Vaginal Cream [facility] ([facility]) glimepiride 1 MG Oral Tablet [facility] ([facility]) Methylprednisolone 2 MG Oral Tablet [Medrol] [facility] ([facility]) Methylprednisolone 4 MG Oral Tablet [facility] ([facility]) Oxycodone Hydrochloride 5 MG Oral Tablet [facility] ([facility]) Acetaminophen 325 MG / Oxycodone Hydrochloride 5 MG Oral Tablet [facility] ([facility]) Prednisone 20 MG Oral Tablet [facility] ([facility]) tramadol hydrochloride 50 MG Oral Tablet [facility] ([facility]) Amoxicillin 500 MG / Clavulanate 125 MG Oral Tablet [facility] ([facility]) Ciprofloxacin 250 MG Oral Tablet [facility] ([facility]) Doxycycline Monohydrate 100 MG Oral Capsule [facility] ([facility]) 0.3 ML Enoxaparin sodium 100 MG/ML Prefilled Syringe [facility] ([facility]) Estradiol 0.1 MG/ML Vaginal Cream [facility] ([facility]) glimepiride 1 MG Oral Tablet [facility] ([facility]) glimepiride 2 MG Oral Tablet [facility] ([facility]) Methylprednisolone 2 MG Oral Tablet [Medrol] [facility] ([facility]) Methylprednisolone 4 MG Oral Tablet [facility] ([facility]) Oxycodone Hydrochloride 5 MG Oral Tablet [facility] ([facility]) Acetaminophen 325 MG / Oxycodone Hydrochloride 5 MG Oral Tablet [facility] ([facility]) Prednisone 20 MG Oral Tablet [facility] ([facility]) tramadol hydrochloride 50 MG Oral Tablet [facility] ([facility]) Amoxicillin 500 MG / Clavulanate 125 MG Oral Tablet [facility] ([facility]) Ciprofloxacin 250 MG Oral Tablet [facility] ([facility]) Doxycycline Monohydrate 100 MG Oral Capsule [facility] ([facility]) 0.3 ML Enoxaparin sodium 100 MG/ML Prefilled Syringe [facility] ([facility]) Estradiol 0.1 MG/ML Vaginal Cream [facility] ([facility]) glimepiride 1 MG Oral Tablet [facility] ([facility]) glimepiride 2 MG Oral Tablet [facility] ([facility]) Methylprednisolone 2 MG Oral Tablet [Medrol] [facility] ([facility]) Methylprednisolone 4 MG Oral Tablet [facility] ([facility]) Oxycodone Hydrochloride 5 MG Oral Tablet [facility] ([facility]) Acetaminophen 325 MG / Oxycodone Hydrochloride 5 MG Oral Tablet [facility] ([facility]) Prednisone 20 MG Oral Tablet [facility] ([facility]) tramadol hydrochloride 50 MG Oral Tablet [facility] ([facility])
[2020-12-29 16:29] LABS: BASO % 0.5 % (0.0-1.0); EOS # 0.1 10^3/uL (0.0-0.5); EOS % 0.9 % (0.0-3.0); HEMATOCRIT 35.4 % (36.0-47.0); HEMOGLOBIN 11.4 g/dl (12.0-15.5); LYMPH # 2.4 10^3/uL (1.5-5.0); LYMPH % 29.7 % (24.0-44.0); MEAN CORPUSCULAR HEMOGLOBIN 27.9 pg (27.0-33.0); MEAN CORPUSCULAR HGB CONC 32.2 g/dl (32.0-36.5); MEAN CORPUSCULAR VOLUME 86.8 fl (80.0-96.0); MONO # 0.2 10^3/uL (0.0-0.8); NEUTROPHILS # 5.3 10^3/uL (1.5-8.5); NEUTROPHILS % 65.5 % (36.0-66.0); PLATELET COUNT, AUTOMATED 423 10^3/uL (150-450); RED BLOOD COUNT 4.08 10^6/uL (4.00-5.40); WHITE BLOOD COUNT 8.1 10^3/uL (4.0-10.0)
[2020-12-29 17:10] LABS: ALBUMIN 3.5 GM/DL (3.2-5.2); ALT/SGPT 26 U/L (12-78); BILIRUBIN,DIRECT 0.2 MG/DL (0.0-0.2); BILIRUBIN,TOTAL 1.2 MG/DL (0.2-1.0); BLOOD UREA NITROGEN 12 MG/DL (7-18); CALCIUM LEVEL 9.3 MG/DL (8.8-10.2); CARBON DIOXIDE LEVEL 24 MEQ/L (21-32); CHLORIDE LEVEL 101 MEQ/L (98-107); CREATININE FOR GFR 0.66 MG/DL (0.55-1.30); GLOMERULAR FILTRATION RATE > 60.0 (>45); GLUCOSE, FASTING 122 MG/DL (70-100); LIPASE 46 U/L (73-393); NT-PRO BNP 100 PG/ML (<125); POTASSIUM SERUM 4.2 MEQ/L (3.5-5.1); SODIUM LEVEL 136 MEQ/L (136-145)
[2020-12-29] MEDS ORDERED: METR-135 PO (17:53)
[2020-12-29] MEDS ORDERED: metroNIDAZOLE (FLAGYL) 500MG TABLET PO ONE (18:10)
[2020-12-29 18:15] VITALS: BP 127/78
--- NOTE | 2020-12-29 18:32 | ECGEPIP ---
[facility] - ED Test Date: 2020-12-29 Pat Name: CASSIE ARTHUR Department: Room: - Gender: Female [employer] Driver: LEANDER : 1955 Requested By: Eliane Bustillo Order Number: [id number] Reading MD: Eliane Bustillo Measurements Intervals [place] Rate: 96 P: 55 MA: 176 QRS: 57 QRSD: 96 T: 67 QT: 384 QTc: 485 Interpretive Statements probable Normal sinus rhythm baseline artifact may affect interpretation Nonspecific ST abnormality similar 04/29/20 Electronically Signed on 12-29-2020 18:32:01 EDT by Eliane Bustillo
== END 2020-12-29 18:46 | disposition home or self-care (01) ==
LOC: M ED 15:11
DX: R50.9 Fever, unspecified (principal); A07.1 Giardiasis [lambliasis]; E11.9 Type 2 diabetes mellitus without complications; I50.9 Heart failure, unspecified; J45.909 Unspecified asthma, uncomplicated; E78.5 Hyperlipidemia, unspecified; D50.9 Iron deficiency anemia, unspecified; E07.9 Disorder of thyroid, unspecified; G25.0 Essential tremor; Z79.899 Other long term (current) drug therapy; Z79.890 Hormone replacement therapy; Z79.84 Long term (current) use of oral hypoglycemic drugs; Z88.1 Allergy status to other antibiotic agents; Z88.2 Allergy status to sulfonamides; Z88.8 Allergy status to other drugs, medicaments and biological substances; Z91.018 Allergy to other foods

== ENCOUNTER → 2021-01-10 | Outpatient (CLI) | payer OTHER ==
[~2021-01-10] MED LIST changes: +METR-135 PO
== END ==
LOC: M LABSMTC 11:03
PROVIDERS: ATTEND Pediatrics
DX: Z20.822 Contact with and (suspected) exposure to COVID-19 (principal)

== ENCOUNTER → 2021-01-22 | Outpatient (REF) | payer OTHER | LOC: M SFHCPLAZ 18:22 | PROVIDERS: ATTEND Family Medicine | DX: R19.7 Diarrhea, unspecified (principal) ==

== ENCOUNTER 2021-01-23 14:30 | Emergency (ER) | payer OTHER ==
[~2021-01-23] VITALS: Ht 167.6 cm; Wt 96.4 kg
--- OUTSIDE RECORDS SUMMARY | 2021-01-23 14:50 | CCD ---
Author Author [facility] Organization [facility] Address Unknown Phone Unavailable Care Team Providers Care Tub Washer Name Role Phone Kimani Ann Unavailable PROBLEMS Type Condition ICD9-CM Code [id number] Code Onset Dates Condition S tatus W/U Status Risk SNOMED Code Notes Problem Depression F32.9 Active confirmed 97715445 Problem Insomnia G47.00 Active confirmed 842430707 Problem Breast cancer screening Z12.39 Active confirmed 556502071 Problem Gastroesophageal reflux disease, esophagitis pre sence not specified K21.9 Active confirmed 221927602 Problem Folic acid deficiency E53.8 Active confirmed 044491525 Problem NICKI (obstructive sleep apnea) G47.33 Active confirm ed 30436975 Problem Osteoporosis M81.0 Active confirmed 8345822 6 Problem Tibial plateau fracture, left S82.142A Active confi rmed 18456871 Problem Vitamin D deficiency E55.9 Active confirmed 76043896 Problem Oral candidiasis B37.0 Active confirmed 797 54067 Problem Hypothyroid E03.9 Active confirmed 36608721 Problem Fibromyalgia M79.7 Active confirmed 1639751 05 Problem Hypertension I10 Active confirmed 9067973 3 Problem Other disturbances of skin sensation R20.8 Act андрей confirmed 23536570 Problem Hyperalgesia R20.8 Active confirmed 3173309 8 Problem Hypothyroidism, unspecified E03.9 Active confirmed 91560270 Problem Ataxia R27.0 Active confirmed 64010901 Problem Mixed hyperlipidemia E78.2 Active confirmed 171936274 Problem Asthma, severe persistent J45.50 Active confirmed 808576575 Problem Essential tremor G25.0 Active confirmed 609 499888 Problem Hyperlipidemia E78.5 Active confirmed 63056 004 Problem Diabetes mellitus without me ntion of complication, type II or unspecified type, not stated as uncontrolled 250.00 Activ e confirmed 902607314 Problem Diastolic CHF I50.30 Active confirmed 375513 008 Problem Chronic pain syndrome G89.4 Active confirmed 017126659 Problem Recurrent urinary tract infection N39.0 Active confirmed 110030503 Problem Constipation, chronic K59.09 Active confirmed 120136929 Problem Impingement syndrome of both shoulders M75.41 A ctive confirmed 852455853 Problem 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 Active confirmed 4 80910671 Problem Falls frequently R29.6 Active confirmed 279 756265 Problem Primary osteoarthritis of right knee M17.11 Act андрей confirmed 636445274850761 Problem Anemia, iron deficiency D50.9 Active confirmed 86480136 Problem Wrist fracture, left, sequela S62.102S Active confi rmed 315003400 Problem Recurrent epistaxis R04.0 Active confirmed 585962338 Problem Colon polyp K63.5 Active confirmed 75982985 Problem DM2 (diabetes mellitus, type 2) E11.9 Active confi rmed 85685916 Problem Pulmonary embolism I26.99 Active confirmed 5 3047444 Problem DJD (degenerative joint disease), cervical M50.30 Active confirmed 74293231 Problem Primary osteoarthritis of both knees M17.0 Act андрей confirmed 953193258 Problem Menopausal and female climacteric states N95.1 Active confirmed 274201936 Problem DJD (degenerative joint disease), lumbar M47.816 Active confirmed 319586263 Problem Anxiety F41.9 Active confirmed 07647806 Problem Constipation, unspecified constipation type K59.00 Active confirmed 16493811 ALLERGIES Allergen (clinical drug ingredient) Drug/Non Drug Allergy do cumented on EMR Reaction Allergy Type Onset Date Status gatifloxacin Gatifloxacin([facility] Code:[address]-18) pruritis Drug All ergy Active Zocor 10 Anaphylaxis Drug Allergy Active puneet sprinkles head ache Non Drug Allergy Active Vioxx (for allergy use only) bruising Drug Allergy Active ENCOUNTERS from 1955 to 2021-01-17 Encounter Location Date Provider Diagnosis [facility] [place] [address] [place] [id number] Jan, Kimani Ann Chronic pain syndrome G89.4 and Gastroes ophageal reflux disease, esophagitis presence not specified K21.9 IMMUNIZATIONS Vaccine Route Administration Date Status Influenza 6mo & up Fluzone IM Intramuscular Feb 13, 2013 Admi nistered SOCIAL HISTORY Tobacco Use: Social History Observation Description Date Details (start date - stop date) Never Smoker Sex Assigned At : Social History Observation Description Sex Assigned At Unknown Education: Question Answer Notes Level of Education: High School Language: Question Answer Notes Languages spoken: Thai Shinto: Question Answer Notes Shinto 21 Zoroastrianism Sexual Hx: Question Answer Notes Had sex [...] Notes Start Da te End Date Status Nitrofurantoin Macrocrystal 50 MG 1 cap Orally at bedtime Active Baclofen 10 MG as directed Orally four times daily for 30 Days Active Proventil HFA 108 (90 Base) MCG/ACT 2 puffs Inhalation 4 times a day as needed for 30 Days Active Injectafer 750 MG/15ML as directed Intravenous Nov, Active Polyethylene Glycol - 8 gm orally in 8 oz liquid daily for 30 Days Active Glucometer as directed DX: E11.9 Daily for 90 day(s) 2020 Active Indapamide 2.5 MG 1 tablet by mouth Once a day for 30 Days Active Senna Plus 8.6-50 MG 2 tablet in the evening as n eeded Orally Once a day for 30 Days Active Folic Acid 1 MG 1 tablet Orally Once a day for 30 Days Active Escitalopram Oxalate 10 MG 1 tablet Orally Once a day for 30 Days Active Ketorolac Tromethamine 0.5 % 1 drop into affected eye as needed Ophthalmic Four times a day Active Lancets - as directed subcutaneously qid for 30 Days 2020 Active Cromolyn Sodium 20 MG/2ML 2 ml Inhalation Three times a day for 30 da ys Active Blood Glucose Test - as directed subcutaneously qid for 30 Days Oct, Active Mupirocin 2 % 1 application to each nares R intranasal septum TID for 30 Days Nov, Active prednisoLONE Acetate 1 % 1 drop into affected eye Ophthalmic Twice a day Active Macrobid 100 MG 1 cap Orally bid for 7 day(s) Nov, Active Tamsulosin HCl 0.4 MG 1 capsule Orally Once a day for 30 Days Active Magnesium Oxide 400 (240 Mg) MG TAKE ONE TABLET BY NELSON TH @8AM and TAKE ONE TABLET @8PM for 28 Active Potassium chloride 20 meq 1 tab(s) orally Once a day for 30 Days Active Rosuvastatin Calcium 40 MG 1 tablet Orally Once a day for 90 day(s) Active Blood Glucose Test One touch as directed SQ Twice a day DX 250 for 90 days Active Levothyroxine Sodium 75 MCG 1 tablet every morning on an empty stomach Orally Once a day for 30 day(s) Active Esomeprazole Magnesium 20 MG 2 capsules Orally every morning-OTC for 30 Days Active Amitriptyline HCl 25 mg 1 tab Orally at bedtime for 30 Days Active Proventil HFA 108 (90 Base) MCG/ACT 2 puffs Inhalation 4 times a day as needed for 30 Days Active SITagliptin Phosphate 100 MG 1 tablet Orally Once a day for 30 Days Active Rozerem 8 mg 1 tablet at bedtime Orally Daily at bedt elke as needed for 30 Days Active metFORMIN HCl 850 mg 1 tablet by mouth Twice a day for 30 Days Active Advair Diskus 250-50 MCG/DOSE 1 puff Inhalation Twice a day for 30 Da ys Active Nystatin Powder 337338 UNIT 1 application to affected area Externally twice daily under juan breasts for 30 day(s) Active Mag-Oxide 400 MG 1 tablet Orally Twice a day for 30 Days Active Escitalopram Oxalate 10 MG 1 tablet Orally Once a day for 28 Active Ergocalciferol 13136 UNIT 1 capsule Orally every 14 days for 30 Days Active CeleBREX 200 MG 1 capsule with food Orally O nce a day as needed breakthrough pain for 30 Days Jan, Active Gabapentin 800 MG 1 tablet Orally Three times a day for 30 Days Active Cyclobenzaprine HCl 5 MG 1 tab Orally TID prn for 30 Days Active Voltaren 1 % as directed Transdermal Four times a day as needed to posterior knee for 30 Days Active DULoxetine HCl 60 [...] instability-June 2010 normal nerve conduction studies bilateral extremities-[facility] Medical History anemia, iron deficiency Medical [...] mechanical fall sp [facility] History laparoscopic cholecystectomy-Dr. Courtney January [...] trograde approach [address] [facility] Surgical History left and right cataract removal- [facility]. [place] [facility] [place] 09/24 10/25 Hospitalization History hyperkalemia 9.3 with [...] - serial EK/T-I, telemetry 11/20- Hospitalization History [id number] respiratory f ailure c desaturation to Sa)2 [...] IM nail placement by Dr. Gao, tx [facility] 02/19- Hospitalization History P. mirabilis UTI [...] Notes Treatment Notes Treatm ent Clinical Notes Jan, Chronic pain syndrome (ICD-10 - G89.4) Jan, Gastroesophageal reflux dise ase, esophagitis presence not specified (ICD-10 - K21.9) PLAN OF TREATMENT Medication Medication Name Sig Start Date Stop Date Advair Diskus 250-50 MCG/DOSE 1 puff Inhalation Twice a day for 30 Days Proventil HFA 108 (90 Base) MCG/ACT 2 puffs Inhalation 4 times a day as needed for 30 Days Folic Acid 1 MG 1 tablet Orally Once a day for 30 Days Baclofen 10 MG as directed Orally four times daily for 30 Days Macrobid 100 MG 1 cap Orally bid for 7 day(s) Nov, Indapamide 2.5 MG 1 tablet by mouth Once a day for 30 Days Potassium chloride 20 meq 1 tab(s) orally Once a day for 30 Days Cromolyn [...] Once a day for 30 Day s DULoxetine HCl 60 MG 1 capsule Orally bid for 30 Days Reclast 5 MG/100ML as directed Intravenous Cyclobenzaprine HCl 5 MG 1 tab Orally TID prn for 30 Days Gabapentin 800 MG 1 tablet Orally Three times a day for 30 Days Levothyroxine Sodium 75 MCG 1 tablet every morning on an empty stomach Orally Once a day for 30 day(s) Rosuvastatin Calcium 40 MG 1 tablet Orally Once a day for 90 day (s) Ergocalciferol 40351 UNIT 1 capsule Orally every 14 days for 30 Days Mupirocin 2 % 1 application to each nares R intranasal septum TID for 30 Days Nov, Injectafer 750 MG/15ML as directed Intravenous Nov, Voltaren 1 % as directed Transdermal Four times a day as needed to posterior knee for 30 Days Esomeprazole Magnesium 20 MG 2 capsules Orally every morning-OTC for 30 Days CeleBREX 200 MG 1 capsule with food Orally O nce a day as needed breakthrough pain for 30 Days Jan, SITagliptin Phosphate 100 MG 1 tablet Orally Once a day for 30 D ays Mag-Oxide 400 MG 1 tablet Orally Twice a day for 30 Days Rozerem 8 mg 1 tablet at bedtime Orally Daily at bedt elke as needed for 30 Days Polyethylene Glycol - 8 gm orally in 8 oz liquid daily for 30 Da ys Amitriptyline HCl 25 mg 1 tab Orally at bedtime for 30 Days metFORMIN HCl 850 mg 1 tablet by mouth Twice a day for 30 Days Senna Plus 8.6-50 MG 2 tablet in the evening as n eeded Orally Once a day for 30 Days Next Appt Details Provider Name:Kimani Ann, 2021-01-23 0 1:30:00 PM, [address] [place] [address], , [place], [address], Provider Name:Kimani Ann, 2021-03-20 1 1:45:00 AM, [address] [place] [address], , [place], [address], Insurance Providers Payer Name Payer Address Payer Phone Insured Name Patient Relati onship to Insured Coverage Start Date Coverage End Date [facility] [employer] [facility] [employer] [address] [facility] [phone] CASSIE ARTHUR self
--- OUTSIDE RECORDS SUMMARY | 2021-01-23 14:50 | CCD ---
Author Author [facility] Organization [facility] Address Unknown Phone Unavailable Care Team Providers Care Member Of Congress Name Role Phone Kimani Ann Unavailable PROBLEMS Type Condition ICD9-CM Code PRT84-HR Code Onset Dates Condition S tatus W/U Status Risk SNOMED Code Notes Problem Depression F32.9 Active confirmed 26324026 Problem Insomnia G47.00 Active confirmed 018640342 Problem Breast cancer screening Z12.39 Active confirmed 958990121 Problem Gastroesophageal reflux disease, esophagitis pre sence not specified K21.9 Active confirmed 614149027 Problem Folic acid deficiency E53.8 Active confirmed 380570271 Problem NICKI (obstructive sleep apnea) G47.33 Active confirm ed 81871507 Problem Osteoporosis M81.0 Active confirmed 5317529 6 Problem Tibial plateau fracture, left S82.142A Active confi rmed 36956538 Problem Vitamin D deficiency E55.9 Active confirmed 60994707 Problem Oral candidiasis B37.0 Active confirmed 797 63033 Problem Hypothyroid E03.9 Active confirmed 21120772 Problem Fibromyalgia M79.7 Active confirmed 6598983 05 Problem Hypertension I10 Active confirmed 7971709 3 Problem Other disturbances of skin sensation R20.8 Act андрей confirmed 88851920 Problem Hyperalgesia R20.8 Active confirmed 3752626 8 Problem Hypothyroidism, unspecified E03.9 Active confirmed 69147847 Problem Ataxia R27.0 Active confirmed 80033261 Problem Mixed hyperlipidemia E78.2 Active confirmed 935049716 Problem Asthma, severe persistent J45.50 Active confirmed 451237034 Problem Essential tremor G25.0 Active confirmed 609 687839 Problem Hyperlipidemia E78.5 Active confirmed 61090 004 Problem Diabetes mellitus without me ntion of complication, type II or unspecified type, not stated as uncontrolled 250.00 Activ e confirmed 040164257 Problem Diastolic CHF I50.30 Active confirmed 984264 008 Problem Chronic pain syndrome G89.4 Active confirmed 533629009 Problem Recurrent urinary tract infection N39.0 Active confirmed 839249490 Problem Constipation, chronic K59.09 Active confirmed 267555238 Problem Impingement syndrome of both shoulders M75.41 A ctive confirmed 458652275 Problem 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 Active confirmed 4 71390996 Problem Falls frequently R29.6 Active confirmed 279 109927 Problem Primary osteoarthritis of right knee M17.11 Act андрей confirmed 936181946097912 Problem Anemia, iron deficiency D50.9 Active confirmed 59263074 Problem Wrist fracture, left, sequela S62.102S Active confi rmed 239461404 Problem Recurrent epistaxis R04.0 Active confirmed 130413122 Problem Colon polyp K63.5 Active confirmed 12840454 Problem DM2 (diabetes mellitus, type 2) E11.9 Active confi rmed 45518386 Problem Pulmonary embolism I26.99 Active confirmed 5 0455594 Problem DJD (degenerative joint disease), cervical M50.30 Active confirmed 58415948 Problem Primary osteoarthritis of both knees M17.0 Act андрей confirmed 979996612 Problem Menopausal and female climacteric states N95.1 Active confirmed 941464470 Problem DJD (degenerative joint disease), lumbar M47.816 Active confirmed 281873807 Problem Anxiety F41.9 Active confirmed 44724512 Problem Constipation, unspecified constipation type K59.00 Active confirmed 61743287 ALLERGIES Allergen (clinical drug ingredient) Drug/Non Drug Allergy do cumented on EMR Reaction Allergy Type Onset Date Status gatifloxacin Gatifloxacin([facility] Code:[address]-87) pruritis Drug All ergy Active Zocor 10 Anaphylaxis Drug Allergy Active puneet sprinkles head ache Non Drug Allergy Active Vioxx (for allergy use only) bruising Drug Allergy Active ENCOUNTERS from 1955 to 2021-01-17 Encounter Location Date Provider Diagnosis [facility] [place] [address] [facility] [phone] [place] [address] Jan, Kimani Ann IMMUNIZATIONS Vaccine Route Administration Date [...] School Language: Question Answer Notes Languages spoken: Setswana Synagogue: Question Answer Notes Synagogue 21 Nondenominational Sexual Hx: Question Answer Notes [...] for 30 Da ys Active Nystatin Powder 315934 UNIT 1 application to affected area Externally twice daily under juan breasts for 30 day(s) Active Mag-Oxide 400 MG 1 tablet Orally Twice a day for 30 Days Active Escitalopram Oxalate 10 MG 1 tablet Orally Once a day for 28 Active Ergocalciferol 45574 UNIT 1 capsule Orally every 14 days [...] Information RESULTS No Results REASON FOR VISIT med fills MEDICAL (GENERAL) HISTORY Type Description Date Medical [...] instability-June 2010 normal nerve conduction studies bilateral extremities-[facility] Medical History anemia, iron deficiency [...] by Graciela Medical History R PE-dx at [facility]-CT A chest c "small pulmonary emboli to RU PA with areas of parenchymal disease suggestive of pulmonary infarction"- started in Xarelto 15 BID Medical History MRSA UTI-04/08/17 UCX >100K Medical History R distal femur comminuted fr acture sp mechanical fall [facility] History laparoscopic cholecystectomy-Dr. Courtney January [...] bun ion surgery c bone graft/pin- Dr.Frederick Zambrano-[facility] 06/25/16 Surgical History IM nail fo R distal femur re trograde approach [address] [facility] Surgical History left and right [...] - serial EK/T-I, telemetry 11/20- Hospitalization History Guzrfc-kvjr-tt respiratory f ailure c desaturation to Sa)2 20% from same day surgery for R bunion surgery, then rehab at [facility] 06/25- Hospitalization History frequent falls-favoring 2 op iate overuse/misuse-CT cervical/head NAD/xray thoracic, LS, L hip NAD, stable CBCD, CMP, CIP/T-I, - telemetry, UDS + morphine, oxycodone; unresponsive episode requiring Narcan 0.8 to reverse 04/08-06/22 Hospitalization History mechanical fall sp R femur s p IM nail placement by Dr. Gao, tx [facility] 02/19- Hospitalization History P. mirabilis UTI c [...] a day for 90 day (s) Ergocalciferol 99429 UNIT 1 capsule Orally every 14 days [...] Provider Name:Kimani Ann, 2021-01-23 0 1:30:00 PM, [address] [place] [address] , [place], [address], Provider Name:Kimani Ann, 2021-03-20 1 1:45:00 AM, [address] [place] [address] , [place], [address], Insurance Providers Payer Name Payer Address Payer Phone Insured Name Patient Relati onship to Insured Coverage Start Date Coverage End Date [facility] COMMUN[facility]AN [facility] [address] [facility] [phone] CASSIE ARTHUR self
--- OUTSIDE RECORDS SUMMARY | 2021-01-23 14:50 | CCD ---
Author Author [facility] Organization [facility] Address Unknown Phone Unavailable Care Team Providers Care Quality Improvement Coordinator (Rn) Name Role Phone Kimani Ann Unavailable PROBLEMS Type Condition ICD9-CM Code RAK20-VC Code Onset Dates Condition S tatus W/U Status Risk SNOMED Code Notes Problem Depression F32.9 Active confirmed 06640035 Problem Insomnia G47.00 Active confirmed 223065559 Problem Breast cancer screening Z12.39 Active confirmed 009342507 Problem Gastroesophageal reflux disease, esophagitis pre sence not specified K21.9 Active confirmed 308082222 Problem Folic acid deficiency E53.8 Active confirmed 776415809 Problem NICKI (obstructive sleep apnea) G47.33 Active confirm ed 58820897 Problem Osteoporosis M81.0 Active confirmed 0455436 6 Problem Tibial plateau fracture, left S82.142A Active confi rmed 86709114 Problem Vitamin D deficiency E55.9 Active confirmed 00564121 Problem Oral candidiasis B37.0 Active confirmed 797 28597 Problem Hypothyroid E03.9 Active confirmed 56849990 Problem Fibromyalgia M79.7 Active confirmed 1131093 05 Problem Hypertension I10 Active confirmed 2952130 3 Problem Other disturbances of skin sensation R20.8 Act андрей confirmed 73408996 Problem Hyperalgesia R20.8 Active confirmed 5839773 8 Problem Hypothyroidism, unspecified E03.9 Active confirmed 91560887 Problem Ataxia R27.0 Active confirmed 26962015 Problem Mixed hyperlipidemia E78.2 Active confirmed 340968314 Problem Asthma, severe persistent J45.50 Active confirmed 560895762 Problem Essential tremor G25.0 Active confirmed 609 796242 Problem Hyperlipidemia E78.5 Active confirmed 26451 004 Problem Diabetes mellitus without me ntion of complication, type II or unspecified type, not stated as uncontrolled 250.00 Activ e confirmed 532180876 Problem Diastolic CHF I50.30 Active confirmed 574227 008 Problem Chronic pain syndrome G89.4 Active confirmed 715871576 Problem Recurrent urinary tract infection N39.0 Active confirmed 926498161 Problem Constipation, chronic K59.09 Active confirmed 287605395 Problem Impingement syndrome of both shoulders M75.41 A ctive confirmed 884429129 Problem 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 Active confirmed 4 70306823 Problem Falls frequently R29.6 Active confirmed 279 881502 Problem Primary osteoarthritis of right knee M17.11 Act андрей confirmed 734248472422853 Problem Anemia, iron deficiency D50.9 Active confirmed 84262292 Problem Wrist fracture, left, sequela S62.102S Active confi rmed 223320254 Problem Recurrent epistaxis R04.0 Active confirmed 041440743 Problem Colon polyp K63.5 Active confirmed 84825009 Problem DM2 (diabetes mellitus, type 2) E11.9 Active confi rmed 72519275 Problem Pulmonary embolism I26.99 Active confirmed 5 1824056 Problem DJD (degenerative joint disease), cervical M50.30 Active confirmed 69595075 Problem Primary osteoarthritis of both knees M17.0 Act андрей confirmed 681719413 Problem Menopausal and female climacteric states N95.1 Active confirmed 820885679 Problem DJD (degenerative joint disease), lumbar M47.816 Active confirmed 468010665 Problem Anxiety F41.9 Active confirmed 10726285 Problem Constipation, unspecified constipation type K59.00 Active confirmed 01361354 ALLERGIES Allergen (clinical drug ingredient) Drug/Non Drug Allergy do cumented on EMR Reaction Allergy Type Onset Date Status gatifloxacin Gatifloxacin([facility] Code:[address]-92) pruritis Drug All ergy Active Zocor 10 Anaphylaxis Drug Allergy Active puneet sprinkles head ache Non Drug Allergy Active Vioxx (for allergy use only) bruising Drug Allergy Active ENCOUNTERS from 1955 to 2020-12-30 Encounter Location Date Provider Diagnosis [facility] [place] [address] [facility] [phone] [place] [address] Dec, Kimani Ann IMMUNIZATIONS Vaccine Route Administration [...] School Language: Question Answer Notes Languages spoken: Pashto Spiritism: Question Answer Notes Spiritism 21 Jew Sexual Hx: Question Answer Notes Had sex [...] prn for 30 Days Active Nystatin Powder 954363 UNIT 1 application to affected area Externally [...] at bedtime for 30 Days Active Ergocalciferol 39507 UNIT 1 capsule Orally every 14 days [...] Information RESULTS No Results REASON FOR VISIT Diarrhea MEDICAL (GENERAL) HISTORY Type Description Date Medical [...] UTI/urge incotninence/ISD Medical History NICKI-12/05/15 HST c SLIVESTRE 11 Medical History L distal radius fracture s/p mechanical fall using scooter 07/2016-casted by Graciela Medical History R PE-dx at [facility]-CT A chest c "small pulmonary emboli [...] bun ion surgery c bone graft/pin- Dr.Frederick Zambrano-[facility] 06/25/16 Surgical History IM nail fo R distal femur re trograde approach [address] Gao-[facility] 02/20/19 Surgical History left and right cataract removal- Dr. Miranda [facility] 09/24 10/25 Hospitalization History hyperkalemia [...] - serial EK/T-I, telemetry 11/20- Hospitalization History Tgomol-yypk-pz respiratory f ailure c desaturation to Sa)2 20% from same day surgery for R bunion surgery, then rehab at [facility] 06/25- Hospitalization History frequent falls-favoring 2 op iate overuse/misuse-CT cervical/head NAD/xray thoracic, LS, L hip NAD, stable CBCD, CMP, CIP/T-I, - telemetry, UDS + morphine, oxycodone; unresponsive episode requiring Narcan 0.8 to reverse 04/08-06/22 Hospitalization History mechanical fall sp R femur s p IM nail placement by Dr. Gao, tx [facility] 02/19- Hospitalization History P. mirabilis UTI c [...] Once a day for 30 day(s) Ergocalciferol 74587 UNIT 1 capsule Orally every 14 days [...] Name:Kimani Ann, 2021-03-20 1 1:45:00 AM, [address] [facility], , [place], [address], Insurance Providers Payer Name Payer Address Payer Phone Insured Name Patient Relati onship to Insured Coverage Start Date Coverage End Date [facility] COMM[facility]AN [facility] [address] [facility] [phone] CASSIE ARTHUR self
--- OUTSIDE RECORDS SUMMARY | 2021-01-23 14:50 | CCD ---
Author Author [facility] Organization [facility] Address Unknown Phone Unavailable Care Team Providers Care Community Relations Liaison Name Role Phone Kimani Ann Unavailable PROBLEMS Type Condition ICD9-CM Code PEU39-QH Code Onset Dates Condition S tatus W/U Status Risk SNOMED Code Notes Problem Depression F32.9 Active confirmed 43815803 Problem Insomnia G47.00 Active confirmed 021968174 Problem Breast cancer screening Z12.39 Active confirmed 671090924 Problem Gastroesophageal reflux disease, esophagitis pre sence not specified K21.9 Active confirmed 657895507 Problem Folic acid deficiency E53.8 Active confirmed 424343518 Problem NICKI (obstructive sleep apnea) G47.33 Active confirm ed 79489914 Problem Osteoporosis M81.0 Active confirmed 8100494 6 Problem Tibial plateau fracture, left S82.142A Active confi rmed 50750922 Problem Vitamin D deficiency E55.9 Active confirmed 75456005 Problem Oral candidiasis B37.0 Active confirmed 797 00138 Problem Hypothyroid E03.9 Active confirmed 28331284 Problem Fibromyalgia M79.7 Active confirmed 2557166 05 Problem Hypertension I10 Active confirmed 5536093 3 Problem Other disturbances of skin sensation R20.8 Act андрей confirmed 42710084 Problem Hyperalgesia R20.8 Active confirmed 7552203 8 Problem Hypothyroidism, unspecified E03.9 Active confirmed 86641890 Problem Ataxia R27.0 Active confirmed 93594053 Problem Mixed hyperlipidemia E78.2 Active confirmed 615908380 Problem Asthma, severe persistent J45.50 Active confirmed 206303322 Problem Essential tremor G25.0 Active confirmed 609 449058 Problem Hyperlipidemia E78.5 Active confirmed 93031 004 Problem Diabetes mellitus without me ntion of complication, type II or unspecified type, not stated as uncontrolled 250.00 Activ e confirmed 755265460 Problem Diastolic CHF I50.30 Active confirmed 649358 008 Problem Chronic pain syndrome G89.4 Active confirmed 009343315 Problem Recurrent urinary tract infection N39.0 Active confirmed 028385770 Problem Constipation, chronic K59.09 Active confirmed 397434960 Problem Impingement syndrome of both shoulders M75.41 A ctive confirmed 710069910 Problem 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 Active confirmed 4 76296673 Problem Falls frequently R29.6 Active confirmed 279 485252 Problem Primary osteoarthritis of right knee M17.11 Act андрей confirmed 706596797231375 Problem Anemia, iron deficiency D50.9 Active confirmed 03140448 Problem Wrist fracture, left, sequela S62.102S Active confi rmed 038507697 Problem Recurrent epistaxis R04.0 Active confirmed 254962327 Problem Colon polyp K63.5 Active confirmed 15313855 Problem DM2 (diabetes mellitus, type 2) E11.9 Active confi rmed 86969642 Problem Pulmonary embolism I26.99 Active confirmed 5 0739136 Problem DJD (degenerative joint disease), cervical M50.30 Active confirmed 23946440 Problem Primary osteoarthritis of both knees M17.0 Act андрей confirmed 201312854 Problem Menopausal and female climacteric states N95.1 Active confirmed 782007988 Problem DJD (degenerative joint disease), lumbar M47.816 Active confirmed 382992907 Problem Anxiety F41.9 Active confirmed 94533981 Problem Constipation, unspecified constipation type K59.00 Active confirmed 74342268 ALLERGIES Allergen (clinical drug ingredient) Drug/Non Drug Allergy do cumented on EMR Reaction Allergy Type Onset Date Status gatifloxacin Gatifloxacin([facility] Code:[address]-18) pruritis Drug All ergy Active Zocor 10 Anaphylaxis Drug Allergy Active puneet sprinkles head ache Non Drug Allergy Active Vioxx (for allergy use only) bruising Drug Allergy Active ENCOUNTERS from 1956 to 2021-01-16 Encounter Location Date Provider Diagnosis [facility] [place] [address] [facility] [phone] [place] [address] 10 Jan, 2021 Kimani Seth Chronic pain syndrome G89.4 and Diastolic CHF I50.30 IMMUNIZATIONS Vaccine Route Administration Date Status Influenza 6mo & up Fluzone IM Intramuscular Feb 13, 2013 Admi nistered SOCIAL HISTORY Tobacco Use: Social History Observation Description Date Details (start date - stop date) Never Smoker Sex Assigned At : Social History Observation Description Sex Assigned At Unknown Education: Question Answer Notes Level of Education: High School Language: Question Answer Notes Languages spoken: Irish Religious: Question Answer Notes Religious 21 Uatsdin Sexual Hx: Question Answer Notes Had sex [...] Notes Start Da te End Date Status Ketorolac Tromethamine 0.5 % 1 drop into affected eye as needed Ophthalmic Four times a day Active Lancets - as directed subcutaneously qid for 30 Days 2020 Active Cromolyn Sodium 20 MG/2ML 2 ml Inhalation Three times a day for 30 da ys Active Nitrofurantoin Macrocrystal 50 MG 1 cap Orally at bedtime Active Baclofen 10 MG as directed Orally four times daily for 30 Days Active Proventil HFA 108 (90 Base) MCG/ACT 2 puffs Inhalation 4 times a day as needed for 30 Days Active prednisoLONE Acetate 1 [...] Once a day for 30 Days Active Potassium chloride 20 meq 1 tab(s) orally Once a day for 30 Days Active Rosuvastatin Calcium 40 MG 1 tablet Orally Once a day for 90 day(s) Active metFORMIN HCl 850 mg 1 tablet by mouth Twice a day for 30 Days Active Blood Glucose Test - as directed subcutaneously qid for 30 Days Oct, Active Mupirocin 2 % 1 application to each nares R intranasal septum TID for 30 Days Nov, Active Voltaren 1 % as directed Transdermal Four times a day as needed to posterior knee for 30 Days Active Nystatin Powder 407375 UNIT 1 application to affected area Externally twice daily under juan breasts for 30 day(s) Active Magnesium Oxide 400 (240 Mg) MG TAKE ONE TABLET BY NELSON TH @8AM and TAKE ONE TABLET @8PM for 28 Active Rozerem 8 mg 1 tablet at bedtime Orally Daily at bedt elke as needed for 30 Days Active Blood Glucose Test One touch as directed SQ Twice a day DX 250 for 90 days Active SITagliptin Phosphate 100 MG 1 tablet Orally Once a day for 30 Days Active Escitalopram Oxalate 10 MG 1 tablet Orally Once a day for 28 Active Advair Diskus 250-50 MCG/DOSE 1 puff Inhalation Twice a day for 30 Da ys Active Esomeprazole Magnesium 20 MG 2 capsules Orally every morning-OTC for 30 Days Active Amitriptyline HCl 25 mg 1 tab Orally at bedtime for 30 Days Active Proventil HFA 108 (90 Base) MCG/ACT 2 puffs Inhalation 4 times a day as needed for 30 Days Active Glucometer as directed DX: E11.9 Daily for 90 day(s) 2020 Active Indapamide 2.5 MG 1 tablet by mouth Once a day for 30 Days Active Ergocalciferol 67120 UNIT 1 capsule Orally every 14 days for 30 Days Active Polyethylene Glycol - 8 gm orally in 8 oz liquid daily for 30 Days Active Levothyroxine Sodium 75 MCG 1 tablet every morning on an empty stomach Orally Once a day for 30 day(s) Active Mag-Oxide 400 MG 1 tablet Orally Twice a day for 30 Days Active Gabapentin 800 MG 1 tablet Orally Three times a day for 30 Days Active Cyclobenzaprine HCl 5 MG 1 tab Orally TID prn for 30 Days Active Injectafer 750 MG/15ML [...] instability-June 2010 normal nerve conduction studies bilateral extremities-[facility] Medical History anemia, iron deficiency Medical History [...] by Graciela Medical History R PE-dx at [facility]-CT A chest c "small pulmonary emboli to RU PA with areas of parenchymal disease suggestive of pulmonary infarction"- started in Xarelto 15 BID Medical History MRSA UTI-04/08/17 UCX >100K Medical History R distal femur comminuted fr acture sp mechanical fall sp [facility] History laparoscopic cholecystectomy-Dr. Courtney January [...] trograde approach [address] [facility] [facility] Surgical History left and right [...] - serial EK/T-I, telemetry 11/20- Hospitalization History Wrnrmy-kxgk-np respiratory f ailure c desaturation to Sa)2 20% from same day surgery for R bunion surgery, then rehab at [facility] 06/25- Hospitalization History frequent falls-favoring 2 op iate overuse/misuse-CT cervical/head NAD/xray thoracic, LS, L hip NAD, stable CBCD, CMP, CIP/T-I, - telemetry, UDS + morphine, oxycodone; unresponsive episode requiring Narcan 0.8 to reverse 04/08-06/22 Hospitalization History mechanical fall sp R femur s p IM nail placement by Dr. Gao, tx [facility] 02/19- Hospitalization History P. mirabilis UTI c [...] Chronic pain syndrome (ICD-10 - G89.4) Jan, Diastolic CHF (ICD-10 - I50.30) PLAN OF TREATMENT Medication Medication Name Sig Start Date Stop Date Baclofen 10 MG as directed Orally four times daily for 30 Days Advair Diskus 250-50 MCG/DOSE 1 puff Inhalation Twice a day for 30 Days Macrobid 100 MG 1 cap Orally bid for 7 day(s) Nov, Folic Acid 1 MG 1 tablet Orally Once a day for 30 Days Potassium chloride 20 meq 1 tab(s) orally Once a day for 30 Days Proventil HFA 108 (90 Base) MCG/ACT 2 puffs Inhalation 4 times a day as needed for 30 Days Indapamide 2.5 MG 1 tablet by mouth Once a day for 30 Days Escitalopram Oxalate 10 MG 1 tablet Orally Once a day for 30 Day s Cromolyn Sodium 20 MG/2ML 2 ml Inhalation Three times a day for 30 days Mupirocin 2 % 1 application to each nares R intranasal septum TID for 30 Days Nov, Tamsulosin HCl 0.4 MG 1 capsule Orally Once a day for 30 Days DULoxetine HCl 60 MG 1 capsule Orally bid for 30 Days Reclast 5 MG/100ML as directed Intravenous Cyclobenzaprine HCl 5 MG 1 tab Orally TID prn for 30 Days Gabapentin 800 MG 1 tablet Orally Three times a day for 30 Days Rozerem 8 mg 1 tablet at bedtime Orally Daily at bedt elke as needed for 30 Days Voltaren 1 % as directed Transdermal Four times a day as needed to posterior knee for 30 Days Levothyroxine Sodium 75 MCG 1 tablet every morning on an empty stomach Orally Once a day for 30 day(s) Rosuvastatin Calcium 40 MG 1 tablet Orally Once a day for 90 day (s) Injectafer 750 MG/15ML as directed Intravenous Nov, SITagliptin Phosphate 100 MG 1 tablet Orally Once a day for 30 D ays Mag-Oxide 400 MG 1 tablet Orally Twice a day for 30 Days Esomeprazole Magnesium 20 MG 2 capsules Orally every morning-OTC for 30 Days Ergocalciferol 57799 UNIT 1 capsule Orally every 14 days for 30 Days Amitriptyline HCl 25 mg 1 tab Orally at bedtime for 30 Days Senna Plus 8.6-50 MG 2 tablet in the evening as n eeded Orally Once a day for 30 Days Polyethylene Glycol - 8 gm orally in 8 oz liquid daily for 30 Da ys Proventil HFA 108 (90 Base) MCG/ACT 2 puffs Inhalation 4 times a day as needed for 30 Days metFORMIN HCl 850 mg 1 tablet by mouth Twice a day for 30 Days Next Appt Details Provider Name:Kimani Ann, 2021-01-23 0 1:30:00 PM, [address] [place] [address] , [place], [address], Provider Name:Kimani Ann, 2021-03-20 1 1:45:00 AM, [address] [place] [address] , [place], [address], Insurance Providers Payer Name Payer Address Payer Phone Insured Name Patient Relati onship to Insured Coverage Start Date Coverage End Date [facility] [address] [facility] [id number] CASSIE ARTHUR self
--- OUTSIDE RECORDS SUMMARY | 2021-01-23 14:50 | CCD ---
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 Supervisor Name Role Phone Kimani Ann Unavailable PROBLEMS Type Condition ICD9-CM Code [id number] Code Onset Dates Condition S tatus W/U Status Risk SNOMED Code Notes Problem Depression F32.9 Active confirmed 28363714 Problem Insomnia G47.00 Active confirmed 867258507 Problem Breast cancer screening Z12.39 Active confirmed 448076587 Problem Gastroesophageal reflux disease, esophagitis pre sence not specified K21.9 Active confirmed 616754188 Problem Folic acid deficiency E53.8 Active confirmed 848648900 Problem NICKI (obstructive sleep apnea) G47.33 Active confirm ed 77737743 Problem Osteoporosis M81.0 Active confirmed 1635758 6 Problem Tibial plateau fracture, left S82.142A Active confi rmed 10268005 Problem Vitamin D deficiency E55.9 Active confirmed 56011333 Problem Oral candidiasis B37.0 Active confirmed 797 21282 Problem Hypothyroid E03.9 Active confirmed 37853832 Problem Fibromyalgia M79.7 Active confirmed 3703184 05 Problem Hypertension I10 Active confirmed 0297868 3 Problem Other disturbances of skin sensation R20.8 Act андрей confirmed 43982623 Problem Hyperalgesia R20.8 Active confirmed 5280440 8 Problem Hypothyroidism, unspecified E03.9 Active confirmed 47252202 Problem Ataxia R27.0 Active confirmed 21116066 Problem Mixed hyperlipidemia E78.2 Active confirmed 069541050 Problem Asthma, severe persistent J45.50 Active confirmed 851235923 Problem Essential tremor G25.0 Active confirmed 609 745593 Problem Hyperlipidemia E78.5 Active confirmed 32368 004 Problem Diabetes mellitus without me ntion of complication, type II or unspecified type, not stated as uncontrolled 250.00 Activ e confirmed 520172422 Problem Diastolic CHF I50.30 Active confirmed 193119 008 Problem Chronic pain syndrome G89.4 Active confirmed 958486908 Problem Recurrent urinary tract infection N39.0 Active confirmed 582963451 Problem Constipation, chronic K59.09 Active confirmed 247452810 Problem Impingement syndrome of both shoulders M75.41 A ctive confirmed 063847622 Problem 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 Active confirmed 4 32806273 Problem Falls frequently R29.6 Active confirmed 279 567980 Problem Primary osteoarthritis of right knee M17.11 Act андрей confirmed 216905809920138 Problem Anemia, iron deficiency D50.9 Active confirmed 86447078 Problem Wrist fracture, left, sequela S62.102S Active confi rmed 837600772 Problem Recurrent epistaxis R04.0 Active confirmed 779136399 Problem Colon polyp K63.5 Active confirmed 16630045 Problem DM2 (diabetes mellitus, type 2) E11.9 Active confi rmed 88866755 Problem Pulmonary embolism I26.99 Active confirmed 5 6587975 Problem DJD (degenerative joint disease), cervical M50.30 Active confirmed 28216443 Problem Primary osteoarthritis of both knees M17.0 Act андрей confirmed 304512666 Problem Menopausal and female climacteric states N95.1 Active confirmed 004355060 Problem DJD (degenerative joint disease), lumbar M47.816 Active confirmed 528026534 Problem Anxiety F41.9 Active confirmed 22647396 Problem Constipation, unspecified constipation type K59.00 Active confirmed 98412039 ALLERGIES Allergen (clinical drug ingredient) Drug/Non Drug Allergy do cumented on EMR Reaction Allergy Type Onset Date Status gatifloxacin Gatifloxacin([facility] Code:[address]-98) pruritis Drug All ergy Active Zocor 10 Anaphylaxis Drug Allergy Active puneet sprinkles head ache Non Drug Allergy Active Vioxx (for allergy use only) bruising Drug Allergy Active ENCOUNTERS from 1955 to 2021-01-02 Encounter Location Date Provider Diagnosis [facility] [place] [phone] [place] [address] Dec, Kimani Ann IMMUNIZATIONS Vaccine Route Administration [...] School Language: Question Answer Notes Languages spoken: Yoruba Moravian: Question Answer Notes Moravian 21 Jewish Sexual Hx: Question Answer Notes Had sex [...] prn for 30 Days Active Nystatin Powder 579319 UNIT 1 application to affected area Externally [...] at bedtime for 30 Days Active Ergocalciferol 75061 UNIT 1 capsule Orally every 14 days [...] Information RESULTS No Results REASON FOR VISIT Is medication okay to take? MEDICAL (GENERAL) HISTORY Type Description Date Medical [...] 2010 normal nerve conduction studies bilateral extremities-[facility] Medical History anemia, iron deficiency [...] by Graciela Medical History R PE-dx at [facility] A chest c "small pulmonary [...] trograde approach [address] Gao-[facility] 02/20/19 Surgical History left and right cataract removal- Dr. Miranda oms-[facility] 09/24 10/25 Hospitalization History hyperkalemia 9.3 [...] - serial EK/T-I, telemetry 11/20- Hospitalization History Zkittt-llne-vi respiratory f ailure c desaturation to Sa)2 20% from same day surgery for R bunion surgery, then rehab at [facility] 06/25- Hospitalization History frequent falls-favoring 2 op iate overuse/misuse-CT cervical/head NAD/xray thoracic, LS, L hip NAD, stable CBCD, CMP, CIP/T-I, - telemetry, UDS + morphine, oxycodone; unresponsive episode requiring Narcan 0.8 to reverse 04/08-06/22 Hospitalization History mechanical fall sp R femur s p IM nail placement by Dr. Gao, tx [facility] 02/19- Hospitalization History P. mirabilis UTI [...] Once a day for 30 day(s) Ergocalciferol 77497 UNIT 1 capsule Orally every 14 days [...] Name:Kimani Ann, 2021-03-20 1 1:45:00 AM, [address], , [place], [address], Insurance Providers Payer Name Payer Address Payer Phone Insured Name Patient Relati onship to Insured Coverage Start Date Coverage End Date [facility] [place] [address] [facility] [phone] CASSIE ARTHUR self
--- OUTSIDE RECORDS SUMMARY | 2021-01-23 14:50 | CCD ---
Author Author [facility] Organization [facility] Address Unknown Phone Unavailable Care Team Providers Care Kids Activities Coach Name Role Phone Kimani Ann Unavailable PROBLEMS ALLERGIES ENCOUNTERS from 1955 to 2021-01-19 IMMUNIZATIONS SOCIAL HISTORY REASON FOR REFERRAL No Information VITAL SIGNS MEDICATIONS PROCEDURES No Information RESULTS No Results REASON FOR VISIT MEDICAL (GENERAL) HISTORY Goals Section Health Concerns MEDICAL EQUIPMENT No Information MENTAL STATUS FUNCTIONAL STATUS ASSESSMENTS No Information PLAN OF TREATMENT Insurance Providers
[2021-01-23 14:54] VITALS: BP 156/64
--- OUTSIDE RECORDS SUMMARY | 2021-01-23 14:54 | CCD ---
Author Author [facility] Address Unknown Phone Unavailable Care Team Providers Care Paper Twister Tender Name Role Phone Jean-Pierre Ling MD Unavailable [...] Jean-Pierre Dejesus MD Unavailable Unavailable Bolla, Jean-Pierre Djeesus MD Unavailable Unavailable Bolla, Jean-Pierre Dejesus MD Unavailable Unavailable Bolla, Jean-Pierre Dejesus MD Unavailable Unavailable Bolla, Jean-Pierre Dejesus MD Unavailable Unavailable Bolla, Jean-Pierre Dejesus MD Unavailable Unavailable Bolla, Jean-Pierre Dejesus MD Unavailable Unavailable Boljayla, eJan-Pierre Dejesus MD Unavailable Unavailable Bolla, Jean-Pierre Dejesus [...] Gao MD Unavailable Unavailable Jumalon, M Mar CANVASS MANAGER Unavailable Unavailable Jumalon, M Mar CANVASS MANAGER Unavailable Unavailable Jumalon, M Mar CANVASS MANAGER Unavailable Unavailable Jumalon, M Mar CANVASS MANAGER Unavailable Unavailable Jumalon, M Mar CANVASS MANAGER Unavailable Unavailable Jumalon, M Mar CANVASS MANAGER Unavailable Unavailable Jumalon, M Mar CANVASS MANAGER Unavailable Unavailable Jumalon, M Mar CANVASS MANAGER Unavailable Unavailable Jumalon, M Mar CANVASS MANAGER Unavailable Unavailable Jumalon, M Mar CANVASS MANAGER Unavailable Unavailable Jumalon, M Mar CANVASS MANAGER Unavailable Unavailable Jumalon, M Mar CANVASS MANAGER Unavailable Unavailable Jumalon, M Mar CANVASS MANAGER Unavailable Unavailable Jumalon, M Mar CANVASS MANAGER Unavailable Unavailable Jumalon, M Mar CANVASS MANAGER Unavailable Unavailable Jumalon, M Mar CANVASS MANAGER Unavailable Unavailable Jumalon, M Mar CANVASS MANAGER Unavailable Unavailable Jumalon, M Mar CANVASS MANAGER Unavailable Unavailable Jumalon, M Mar CANVASS MANAGER Unavailable Unavailable Jumalon, M Mar CANVASS MANAGER Unavailable Unavailable Jumalon, M Mar CANVASS MANAGER Unavailable Unavailable Jumalon, M Mar CANVASS MANAGER Unavailable Unavailable Jumalon, M Mar CANVASS MANAGER Unavailable Unavailable Jumalon, M Mar CANVASS MANAGER Unavailable Unavailable Jumalon, M Mar CANVASS MANAGER Unavailable Unavailable Jumalon, M Mar CANVASS MANAGER Unavailable Unavailable Jumalon, M Mar CANVASS MANAGER Unavailable Unavailable Jumalon, M Mar CANVASS MANAGER Unavailable Unavailable Jumalon, M Mar CANVASS MANAGER Unavailable Unavailable Jumalon, M Mar CANVASS MANAGER Unavailable Unavailable Rechlin, P Andrea DO Unavailable [...] is protected by Article 27-F of the [facility] Public Health law. If you continue you may have access to information: Regarding HIV / AIDS; Provided by facilities licensed or operated by the [facility] Office of Mental Health; or Provided by the [facility] Office for People With Developmental Disabilities. If such information is present, then the following [facility] mandated warning applies: This information has [...] Description Data Source(s) Unknown Unknown Problem MEDENT ([facility], ) sister age 48 and another age 59 alive Encounters Encounter Providers Location Date Indications Data Source(s ) Unknown [address] [facility] [id number] 01/20/2021 12:00:00 AM EST eCW1 ([facility]) Unknown [address] [facility] [id number] 01/19/2021 12:00:00 AM EST eCW1 ([facility]) Unknown [address] [facility] Y [address] 01/16/2021 12:00:00 AM EST eCW1 ([facility]) Unknown [address] [facility] Y [address] 01/16/2021 12:00:00 AM EST eCW1 ([facility]) Unknown [address] [facility] [address] 01/14/2021 12:00:00 AM EST eCW1 ([facility]) Unknown [address] [facility] Y [address] 01/01/2021 12:00:00 AM EDT eCW1 ([facility]) Unknown [address] [facility] Y [address] 12/29/2020 12:00:00 AM EDT eCW1 ([facility]) Unknown [address] [facility] Y [address] 12/26/2020 12:00:00 AM EDT eCW1 ([facility]) Unknown [address] [facility] [place] [address] 12/19/2020 12:00:00 AM EDT eCW1 ([facility]) Unknown [address] [facility] [place] [address] 12/19/2020 12:00:00 AM EDT eCW1 ([facility]) Unknown [address] [facility] [place] [address] 12/19/2020 12:00:00 AM EDT eCW1 ([facility]) Unknown [address] [facility] [place] [address] 12/16/2020 12:00:00 AM EDT eCW1 ([facility]) Unknown [address] [facility] [place] [address] 12/15/2020 12:00:00 AM EDT eCW1 ([facility]) Unknown [address] [facility] [place] [address] 12/05/2020 12:00:00 AM EDT eCW1 ([facility]) Unknown [address] [facility] [place] [address] 11/18/2020 12:00:00 AM EDT eCW1 ([facility]) Unknown [address] [facility] [place] [address] 11/17/2020 12:00:00 AM EDT eCW1 ([facility]) Outpatient [address] [facility] [place] [address] 11/14/2020 12:00:00 AM EDT eCW1 ([facility]) Unknown [address] [facility] [place] [address] 11/14/2020 12:00:00 AM EDT eCW1 ([facility]) Unknown [address] [facility] [place] [address] 11/14/2020 12:00:00 AM EDT eCW1 ([facility]) Unknown [address] [facility] Y [address] 11/13/2020 12:00:00 AM EDT eCW1 ([facility]) Unknown [address] [facility], Y [address] 11/04/2020 12:00:00 AM EDT eCW1 ([facility]) Unknown [address] [facility] Y [address] 11/03/2020 12:00:00 AM EDT eCW1 ([facility]) Oleg Ling MD: [address] [facility] [address], [place] [address], Ph. Attender: Oleg CHAIREZ - [facility] 10/24/2020 12:00:00 AM EDT MARILIA ([facility]) Office Visit Attender: Bren RODRIGES Physical Therapy 01:15:00 PM EDT MEDENT ([facility]) Outpatient [address] [facility] Y [address] 10/21/2020 12:00:00 AM EDT eCW1 ([facility]) Unknown [address] [facility] Y [address] 10/21/2020 12:00:00 AM EDT eCW1 ([facility]) Oleg Ling MD: [address] [facility] [address], [place] [address], Ph. [phone] Attender: Oleg CHAIREZ - [facility] Office 10/20/2020 12:00:00 AM EDT MARILIA ([facility]) Oleg Ling MD: [address], [place] [address], Ph. [phone] Attender: Oleg CHAIREZ [facility] 10/20/2020 12:00:00 AM EDT MARILIA ([facility]) Outpatient Attender: Michaelmarco antonio Glover/Riri/Angel adame/Avery 10/15/2020 01:00:00 PM EDT MEDREMY ([facility] NAKITA Marcial) Mar Smith, CARE ASSISTANT: [address], [place] [address], Ph. Attender: Mar Smith [facility] - [facility] 10/15/2020 12:00:00 AM EDT ATHE NA ([facility]) Mar Smith, CARE ASSISTANT: [address], [place] [address], Ph. Attender: Mar Smith [facility] 10/15/2020 12:00:00 AM EDT ATHJaime NA ([facility]) Mar Smith, CARE ASSISTANT: [address], [place] [address], Ph. Attender: Mar Smith [facility] 10/15/2020 12:00:00 AM EDT ATHJaime NA ([facility]) Outpatient Attender: Andrea Sterling/Riri/Mil/Joe ndl 10/08/2020 09:30:00 AM EDT MEDREMY ([facility] Danica spears, NAKITA) Unknown [address] [facility], [place] [address] 10/07/2020 12:00:00 AM EDT eCW1 ([facility]) Outpatient [address] [facility] Y [address] 09/22/2020 12:00:00 AM EDT eCW1 ([facility]) Unknown [address] [facility] Y [address] 09/04/2020 12:00:00 AM EDT eCW1 ([facility]) Unknown [address] [facility] [place] [address] 08/28/2020 12:00:00 AM EDT eCW1 ([facility]) Unknown [address] [facility] [address] 08/27/2020 12:00:00 AM EDT eCW1 ([facility]) Unknown [address] [facility] [place] [address] 08/25/2020 12:00:00 AM EDT eCW1 ([facility]) Unknown [address] [facility] [place] [address] 08/14/2020 12:00:00 AM EDT eCW1 ([facility]) Outpatient Attender: Amira Garg 08/11/2020 11:00:00 PM E DT 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 [phone] Attender: Oleg Ling MD [place] - [facility] 08/11/2020 12:00:00 AM EDT MARILIA ([facility]) Oleg Ling MD: [address] [facility] [address], [place], [place] [address], Ph. [phone] Attender: Oleg Ling MD [facility] 08/11/2020 12:00:00 AM EDT MARILIA ([facility]) Oleg Ling MD: [address] [facility] [address], [facility] [place] [address], Ph. [phone] Attender: Oleg CHAIREZ [facility] 08/11/2020 12:00:00 AM EDT MARILIA ([facility]) Oleg Ling MD: [address], [place] [address], Ph. [phone] Attender: Oleg Ling MD [place] - [facility] 08/11/2020 12:00:00 AM EDT MARILIA ([facility]) Mar Smith, CARE ASSISTANT: [address], [address], [place] [address], Ph. Attender: Mar Francisyue [facility] - [facility] 08/06/2020 12:00:00 AM EDT VANCE FLORES ([facility]) Mar Smith, CARE ASSISTANT: [address], [place] [address], Ph. Attender: Mar Titoyue [facility] - [facility] 08/06/2020 12:00:00 AM EDT ATHE NA ([facility]) Mar Smith, CARE ASSISTANT: [address], [place] [address], Ph. Attender: Mar Smith [facility] - [facility] 08/06/2020 12:00:00 AM EDT ATHE NA ([facility]) Mar Smith, CARE ASSISTANT: [address], [place] [address], Ph. Attender: Mar Diyadelmis [facility] 08/06/2020 12:00:00 AM EDT ATHE NA ([facility]) Mar Rodriguez Sarah, CARE ASSISTANT: [address], [place] [address], Ph. 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 Outpatient Attender: Monica Bal MD [place]/ Steffen Martin ology 07/14/2020 03:30:00 PM EDT MEDENT ([facility]) Unknown [address] [facility] [address] 07/08/2020 12:00:00 AM EDT eCW1 ([facility]) Unknown [address] [facility] [address] [address] 07/07/2020 12:00:00 AM EDT eCW1 ([facility]) Outpatient [address] [facility] [place] [address] 07/04/2020 12:00:00 AM EDT eCW1 ([facility]) Unknown [address] [facility] [place] [address] 07/04/2020 12:00:00 AM EDT eCW1 ([facility]) Unknown [address] [facility] [place] [address] 07/04/2020 12:00:00 AM EDT eCW1 ([facility]) Unknown [address] [facility] [place] [address] 07/04/2020 12:00:00 AM EDT eCW1 ([facility]) Unknown [address] [facility] [place] [address] 07/03/2020 12:00:00 AM EDT eCW1 ([facility]) Unknown [address] [facility] [address] [address] 06/30/2020 12:00:00 AM EDT eCW1 ([facility]) Unknown [address] [facility] [place] [address] 06/25/2020 12:00:00 AM EDT eCW1 ([facility]) Unknown [address] [facility] [place] [address] 06/19/2020 12:00:00 AM EDT eCW1 ([facility]) Unknown [address] [facility] [place] [address] 06/19/2020 12:00:00 AM EDT eCW1 ([facility]) Unknown [address] [facility] [place] [address] 06/17/2020 12:00:00 AM EDT eCW1 ([facility]) Unknown [address] [facility] [place] [address] 06/13/2020 12:00:00 AM EDT eCW1 ([facility]) Unknown [address] [facility] [place] [address] 06/09/2020 12:00:00 AM EDT eCW1 ([facility]) Unknown [address] [facility] [place] [address] 06/04/2020 12:00:00 AM EDT eCW1 ([facility]) Unknown [address] [facility] [place] [address] 05/26/2020 12:00:00 AM EDT eCW1 ([facility]) Outpatient [address] [facility] [place] [address] 05/26/2020 12:00:00 AM EDT eCW1 ([facility]) Unknown [address] [facility] [place] [address] 05/20/2020 12:00:00 AM EDT eCW1 ([facility]) Unknown [address] [facility] [place] [address] 05/15/2020 12:00:00 AM EST eCW1 ([facility]) Outpatient [address] [facility], [place] [address] 05/12/2020 12:00:00 AM EST eCW1 ([facility]) Mar Smtih, CARE ASSISTANT: [address], [place] [address], Ph. Attender: Mar Smith [facility] - [facility] 04/15/2020 12:00:00 AM EST ATHE NA ([facility]) Mar Smith, CARE ASSISTANT: [address], [place] [address], Ph. Attender: Mar Smith [facility] 04/15/2020 12:00:00 AM EST ATHE NA ([facility]) Mar Smith, CARE ASSISTANT: [address], [place] [address], Ph. Attender: Mar Smith [facility] 04/15/2020 12:00:00 AM EST ATHE NA ([facility]) Mar Smith, CARE ASSISTANT: [address], [place] [address], Ph. Attender: Mar Smith [facility] - [facility] 04/15/2020 12:00:00 AM EST ATHE NA ([facility]) Mar Smith, CARE ASSISTANT: [address], [place] [address], Ph. Attender: Mar Smith [facility] 04/15/2020 12:00:00 AM EST ATHE NA ([facility]) Mar Rodriguez Diyadelmis, CARE ASSISTANT: [address], [place] [address], Ph. Attender: Mar YARBROUGH [place] - [facility] 04/15/2020 12:00:00 AM EST ATHE NA ([facility]) Outpatient Attender: Monica Bal MD 04/07/2020 09:05 :00 PM EST [facility] Outpatient Attender: Monica Bal MD [place]/ A.MKelsiePKelsie torres 04/07/2020 12:15:00 PM EST MEDENT ([facility] Oleg Ling MD: [address], [facility] [place] [address], Ph. Attender: Oleg Ling MD [facility] 03/31/2020 12:00:00 AM EST MARILIA ([facility]) Oleg Ling MD: [address], [place] [address], Ph. Attender: Oleg Ling MD [facility] 03/31/2020 12:00:00 AM EST MARILIA ([facility]) Oleg Ling MD: [address], [facility] [place] [address], Ph. Attender: Oleg Ling MD [place] - [facility] 03/31/2020 12:00:00 AM EST MARILIA ([facility]) Oleg Ling MD: [address], [facility] [place] [address], Ph. Attender: Oleg Ling MD [facility] 03/31/2020 12:00:00 AM EST MARILIA ([facility]) Oleg Ling MD: [address], [place] [address], Ph. Attender: Oleg Ling MD [place] - [facility] Office 03/31/2020 12:00:00 AM EST MARILIA ([facility]) Oleg Ling MD: [address], [place] [address], Ph. Attender: Oleg Ling MD [place] - [facility] Office 03/31/2020 12:00:00 AM EST MARILIA ([facility]) Oleg Ling MD: [address], [place] [address], Ph. Attender: Oleg Ling MD [place] - [facility] 03/31/2020 12:00:00 AM EST MARILIA ([facility]) OFFICE OUTPATIENT VISIT 15 MINUTES Attender: Bren RODRIGES Physical Therapy 03/27/2020 12:45:00 PM EST MEDENT ([facility]) Oleg Ling MD: [address], [place] [address], Ph. [phone] Attender: Oleg Ling MD [place] - [facility] 03/26/2020 12:00:00 AM EST MARILIA ([facility]) Oleg Ling MD: [address], [address] [place] [address], Ph. [phone] Attender: Oleg Ling MD [place] - [facility] 03/26/2020 12:00:00 AM EST MARILIA ([facility]) Oleg Ling MD: [address], [place] [address], Ph. [phone] Attender: Oleg CHAIREZ - [facility] 03/26/2020 12:00:00 AM EST MARILIA ([facility]) Oleg Ling MD: [address], [place] [address], Ph. [phone] Attender: Oleg Ling MD [place] - [facility] 03/26/2020 12:00:00 AM EST MARILIA ([facility]) Oleg Ling MD: [address], [facility] [place] [address], Ph. [phone] Attender: Oleg Ling MD [place] - [facility] 03/26/2020 12:00:00 AM EST MARILIA ([facility]) Oleg Ling MD: [address], [facility] [place] [address], Ph. [phone] Attender: Oleg Ling MD [place] - [facility] 03/26/2020 12:00:00 AM EST MARILIA ([facility]) Oleg Ling MD: [address], [facility] [place] [address], Ph. [phone] Attender: Oleg Ling MD [place] - [facility] 03/26/2020 12:00:00 AM EST MARILIA ([facility]) Oleg Ling MD: [address], [place] [address], Ph. [phone] Attender: Oleg Ling MD [place] - [facility] 03/26/2020 12:00:00 AM EST MARILIA ([facility]) aMr Smith, CARE ASSISTANT: [address], [facility] [place] [address], Ph. [facility] 03/18/2020 12:00:00 AM EST ATHE NA ([facility]) Mar Smith, CARE ASSISTANT: [address], [place] [address], Ph. Attender: Mar Smith [facility] 03/18/2020 12:00:00 AM EST ATHE NA ([facility]) Mar Smith, CARE ASSISTANT: [address], [place] [address], Ph. Attender: Mar Smith [facility] 03/18/2020 12:00:00 AM EST ATHE NA ([facility]) Mar Smith, CARE ASSISTANT: [address], [facility] [place] [address], Ph. Attender: Mar Smith [facility] 03/18/2020 12:00:00 AM EST ATHE NA ([facility]) Mar Smith, CARE ASSISTANT: [address], [place] [address], Ph. Attender: Mar Smith [facility] 03/18/2020 12:00:00 AM EST ATHE NA ([facility]) Mar Smith, CARE ASSISTANT: [address], [place] [address], Ph. Attender: Mar Smith [facility] 03/18/2020 12:00:00 AM EST ATHE NA ([facility]) Mar Smith, CARE ASSISTANT: [address], [place] [address], Ph. Attender: Mar Smith [facility] - [facility] 03/18/2020 12:00:00 AM EST ATHE NA ([facility]) Mar Smith, CARE ASSISTANT: [address], [place] [address], Ph. Attender: Mar Smith [facility] - [facility] 03/18/2020 12:00:00 AM EST ATHE NA ([facility]) Mar Smith, CARE ASSISTANT: [address], [place] [address], Ph. Attender: Mar Smith [facility] - [facility] 03/18/2020 12:00:00 AM EST ATHE NA ([facility]) Unknown [address] [facility] [address] 03/14/2020 12:00:00 AM EST eCW1 ([facility]) Unknown [address] [facility] [address] 03/13/2020 12:00:00 AM EST eCW1 ([facility]) Outpatient Attender: Andrea Sterling/Riir/Mil/Joe ndprabha 03/12/2020 09:00:00 AM EST MEDENT ([facility]) Mar Smith, CARE ASSISTANT: [address], [place] [address], Ph. Attender: Mar Smith [facility] - [facility] 02/14/2020 12:00:00 AM EST ATHE NA ([facility]) Mar Smith, CARE ASSISTANT: [address], [place] [address], Ph. Attender: Mar Smith [facility] - [facility] 02/14/2020 12:00:00 AM EST ATHE NA ([facility]) Mar Smith, CARE ASSISTANT: [address], [place] [address], Ph. Attender: Mar Smith [facility] - [facility] 02/14/2020 12:00:00 AM EST ATHE NA ([facility]) Mar Smith, CARE ASSISTANT: [address], [place] [address], Ph. Attender: Mar Francisyue [facility] - [facility] 02/14/2020 12:00:00 AM EST ATHE NA ([facility]) Mar Smith, CARE ASSISTANT: [address], [place] [address], Ph. Attender: Mar Smith [facility] - [facility] 02/14/2020 12:00:00 AM EST ATHE NA ([facility]) Mar Smith, CARE ASSISTANT: [address], [place] [address], Ph. Attender: Mar Smith [facility] - [facility] 02/14/2020 12:00:00 AM EST ATHE NA ([facility]) Mar Smith, CARE ASSISTANT: [address], [place] [address], Ph. Attender: Mar Smith [facility] - [facility] 02/14/2020 12:00:00 AM EST ATHE NA ([facility]) Mar Smith, CARE ASSISTANT: [address], [place] [address], Ph. Attender: Mar Smith [facility] - [facility] - [facility] 02/14/2020 12:00:00 AM EST ATHE NA ([facility]) Mar Smith, CARE ASSISTANT: [address], [place] [address], Ph. Attender: Mar Smith [facility] - [facility] - [facility] 02/14/2020 12:00:00 AM EST ATHE NA ([facility]) Mar Smith, CARE ASSISTANT: [address], [address], [place] [address], Ph. Attender: Mar Smith [facility] - [facility] - [facility] 02/14/2020 12:00:00 AM EST ATHE NA ([facility]) [place] [address] [facility] [address] 02/13/2020 12:00:00 AM EST eCW1 ([facility]) Unknown [address] [facility] [address] 02/06/2020 12:00:00 AM EST eCW1 ([facility]) Outpatient Attender: Amira aGrg 01/10/2020 11:00:00 PM E [facility] Outpatient Attender: Amira Harrell/ A.[facility] 12:30:00 PM EST [facility]ENT [facility] Preadmit Attender: Cesario Gao MD 01/03/2020 12:00:00 AM EDT S/P R FEMUR FX [facility] S/P R FEMUR FX Outpatient Attender: Monica Bal MD 12/11/2019 11:00 :00 PM EDT [facility] Unknown [address] [facility] [address] 12/06/2019 12:00:00 AM EDT eCW1 ([facility]) Unknown [address] [facility] [address] 12/05/2019 12:00:00 AM EDT eCW1 ([facility]) Oleg Ling MD: [address], [address], [place] [address], Ph. Attender: Oleg Ling MD ND - [facility] 12/03/2019 12:00:00 AM EDT MARILIA ([facility]) Oleg Ling MD: [address], [address], [place] [address], Ph. Attender: Oleg Ling MD ND - [facility] 12/03/2019 12:00:00 AM EDT MARILIA ([facility]) Oleg Ling MD: [address], [place] [address], Ph. Attender: Oleg CHAIREZ - [facility] 12/03/2019 12:00:00 AM EDT MARILIA ([facility]) Oleg Ling MD: [address], [place] [address], Ph. Attender: Oleg CHAIREZ - [facility] 12/03/2019 12:00:00 AM EDT MARILIA ([facility]) Oleg Ling MD: [address], [address], [place] [address], Ph. Attender: Oleg CHAIREZ - [facility] 12/03/2019 12:00:00 AM EDT MARILIA ([facility]) Oleg Ling MD: [address], [address], [place] [address], Ph. Attender: Oleg CHAIREZ - [facility] 12/03/2019 12:00:00 AM EDT MARILIA ([facility]) Oleg Ling MD: [address], [address], [place] [address], Ph. Attender: Oleg CHAIREZ - [facility] 12/03/2019 12:00:00 AM EDT MARILIA ([facility]) Oleg Ling MD: [address], [address], [place] [address], Ph. Attender: Oleg CHAIREZ - [facility] 12/03/2019 12:00:00 AM EDT MARILIA ([facility]) Oleg Ling MD: [address], [address], [place] [address], Ph. Attender: Oleg CHAIREZ - [facility] 12/03/2019 12:00:00 AM EDT MARILIA ([facility]) Oleg Ling MD: [address], [address], [place] [address], Ph. Attender: Oleg CHAIREZ - [facility] 12/03/2019 12:00:00 AM EDT MARILIA ([facility]) Oleg Ling MD: [address], [address], [place] [address], Ph. Attender: Oleg CHAIREZ - [facility] 12/03/2019 12:00:00 AM EDT MARILIA ([facility]) Oleg Ling MD: [address], [address], [place] [address], Ph. [phone] Attender: Oleg Ling MD ND - [facility] 11/28/2019 12:00:00 AM EDT MARILIA ([facility]) Oleg Ling MD: [address], [address], [place] [address], Ph. [phone] Attender: Oleg Ling MD ND - [facility] 11/28/2019 12:00:00 AM EDT MARILIA ([facility]) Oleg Ling MD: [address], [address], [place] [address], Ph. [phone] Attender: Oleg CHAIREZ - [facility] 11/28/2019 12:00:00 AM EDT MARILIA ([facility]) Oleg Ling MD: [address], [address], [place] [address], Ph. [phone] Attender: Oleg CHAIREZ - [facility] 11/28/2019 12:00:00 AM EDT MARILIA ([facility]) Oleg Ling MD: [address], [address], [place] [address], Ph. [phone] Attender: Oleg CHAIREZ - [facility] 11/28/2019 12:00:00 AM EDT MARILIA ([facility]) Oleg Ling MD: [address], [address], [place] [address], Ph. [phone] Attender: Oleg Ling MD ND - [facility] 11/28/2019 12:00:00 AM EDT MARILIA ([facility]) Oleg Ling MD: [address], [address], [place] [address], Ph. [phone] Attender: Oleg CHAIREZ - [facility] 11/28/2019 12:00:00 AM EDT MARILIA ([facility] [place]) Oleg Ling MD: [address], [address], [place] [address], Ph. [phone] Attender: Oleg Ling MD ND - [facility] 11/28/2019 12:00:00 AM EDT MARILIA ([facility]) Oleg Ling MD: [address], [address], [place] [address], Ph. [phone] Attender: Oleg Ling MD ND - [facility] 11/28/2019 12:00:00 AM EDT MARILIA ([facility]) Oleg Lign MD: [address], [address], [place] [address], Ph. [phone] Attender: Oleg Ling MD ND - [facility] 11/28/2019 12:00:00 AM EDT MARILIA ([facility]) Oleg Ling MD: [address], [address], [place] [address], Ph. [phone] Attender: Oleg Ling MD ND - [facility] 11/28/2019 12:00:00 AM EDT MARILIA ([facility]) Oleg Ling MD: [address], [place] [address], Ph. [phone] Attender: Oleg Ling MD ND - [facility] 11/28/2019 12:00:00 AM EDT MARILIA ([facility]) Immunizations Vaccine Date Status Description Data Source(s) COVID-19 VACCINE Moderna 11/05/2020 12:00:00 AM EDT completed [facility] Vaccine Series Complete: YESThis Data wa s Submitted to [facility] Via [employer] COVID-19 VACCINE Moderna 10/01/2020 12:00:00 AM EDT completed [facility] Vaccine Series Complete: NOThis Data was Submitted to [facility] Via [facility]. Medications Medication Brand Name Start Date Product Form Dose Route Admi nistrative Instructions Pharmacy Instructions Status Indications Reaction Description Data Source(s) celecoxib 200 MG Oral Capsule [Celebrex] CeleBREX 200 MG Dee eBREX 200 MG 01/16/2021 12:00:00 AM EST 1.0 {capsule_with_food} a ctive eCW1 ([facility]) celecoxib 200 MG Oral Capsule [Celebrex] CeleBREX 200 MG Dee eBREX 200 MG 01/16/2021 12:00:00 AM EST 1.0 {capsule_with_food} active CeleBREX 200 MG eCW1 ([facility]) celecoxib 200 MG Oral Capsule [Celebrex] CeleBREX 200 MG Dee eBREX 200 MG 01/16/2021 12:00:00 AM EST 1.0 {capsule_with_food} active CeleBREX 200 MG eCW1 ([facility]) NITROFURANTOIN, MACROCRYSTALS 25 MG / Ni trofurantoin, Monohydrate 75 MG Oral Capsule [Macrobid] Macrobid 100 MG Macrobid 100 MG 11/17/2020 12:00:00 AM EDT active Macrobid 100 MG eCW1 ([facility]) NITROFURANTOIN, MACROCRYSTALS 25 MG / Ni trofurantoin, Monohydrate 75 MG Oral Capsule [Macrobid] Macrobid 100 MG Macrobid 100 MG 11/17/2020 12:00:00 AM EDT active Macrobid 100 MG eCW1 ([facility]) NITROFURANTOIN, MACROCRYSTALS 25 MG / Ni trofurantoin, Monohydrate 75 MG Oral Capsule [Macrobid] Macrobid 100 MG Macrobid 100 MG 11/17/2020 12:00:00 AM EDT active Macrobid 100 MG eCW1 ([facility]) NITROFURANTOIN, MACROCRYSTALS 25 MG / Ni trofurantoin, Monohydrate 75 MG Oral Capsule [Macrobid] Macrobid 100 MG Macrobid 100 MG 11/17/2020 12:00:00 AM EDT active Macrobid 100 MG eCW1 ([facility]) NITROFURANTOIN, MACROCRYSTALS 25 MG / Ni trofurantoin, Monohydrate 75 MG Oral Capsule [Macrobid] Macrobid 100 MG Macrobid 100 MG 11/17/2020 12:00:00 AM EDT active Macrobid 100 MG eCW1 ([facility]) NITROFURANTOIN, MACROCRYSTALS 25 MG / Ni trofurantoin, Monohydrate 75 MG Oral Capsule [Macrobid] Macrobid 100 MG Macrobid 100 MG 11/17/2020 12:00:00 AM EDT active Macrobid 100 MG eCW1 ([facility]) NITROFURANTOIN, MACROCRYSTALS 25 MG / Ni trofurantoin, Monohydrate 75 MG Oral Capsule [Macrobid] Macrobid 100 MG Macrobid 100 MG 11/17/2020 12:00:00 AM EDT active Macrobid 100 MG eCW1 ([facility]) NITROFURANTOIN, MACROCRYSTALS 25 MG / Ni trofurantoin, Monohydrate 75 MG Oral Capsule [Macrobid] Macrobid 100 MG Macrobid 100 MG 11/17/2020 12:00:00 AM EDT active Macrobid 100 MG eCW1 ([facility]) NITROFURANTOIN, MACROCRYSTALS 25 MG / Ni trofurantoin, Monohydrate 75 MG Oral Capsule [Macrobid] Macrobid 100 MG Macrobid 100 MG 11/17/2020 12:00:00 AM EDT active Macrobid 100 MG eCW1 ([facility]) NITROFURANTOIN, MACROCRYSTALS 25 MG / Ni trofurantoin, Monohydrate 75 MG Oral Capsule [Macrobid] Macrobid 100 MG Macrobid 100 MG 11/17/2020 12:00:00 AM EDT active Macrobid 100 MG eCW1 ([facility]) NITROFURANTOIN, MACROCRYSTALS 25 MG / Ni trofurantoin, Monohydrate 75 MG Oral Capsule [Macrobid] Macrobid 100 MG Macrobid 100 MG 11/17/2020 12:00:00 AM EDT active Macrobid 100 MG eCW1 ([facility]) NITROFURANTOIN, MACROCRYSTALS 25 MG / Ni trofurantoin, Monohydrate 75 MG Oral Capsule [Macrobid] Macrobid 100 MG Macrobid 100 MG 11/17/2020 12:00:00 AM EDT active Macrobid 100 MG eCW1 ([facility]) NITROFURANTOIN, MACROCRYSTALS 25 MG / Ni trofurantoin, Monohydrate 75 MG Oral Capsule [Macrobid] Macrobid 100 MG Macrobid 100 MG 11/17/2020 12:00:00 AM EDT active Macrobid 100 MG eCW1 ([facility]) NITROFURANTOIN, MACROCRYSTALS 25 MG / Ni trofurantoin, Monohydrate 75 MG Oral Capsule [Macrobid] Macrobid 100 MG Macrobid 100 MG 11/17/2020 12:00:00 AM EDT active Macrobid 100 MG eCW1 ([facility]) NITROFURANTOIN, MACROCRYSTALS 25 MG / Ni trofurantoin, Monohydrate 75 MG Oral Capsule [Macrobid] Macrobid 100 MG Macrobid 100 MG 11/17/2020 12:00:00 AM EDT active Macrobid 100 MG eCW1 ([facility]) NITROFURANTOIN, MACROCRYSTALS 25 MG / Ni trofurantoin, Monohydrate 75 MG Oral Capsule [Macrobid] Macrobid 100 MG Macrobid 100 MG 11/17/2020 12:00:00 AM EDT active Macrobid 100 MG eCW1 ([facility]) NITROFURANTOIN, MACROCRYSTALS 25 MG / Ni trofurantoin, Monohydrate 75 MG Oral Capsule [Macrobid] Macrobid 100 MG Macrobid 100 MG 11/17/2020 12:00:00 AM EDT active eCW1 ([facility]) NITROFURANTOIN, MACROCRYSTALS 25 MG / Ni trofurantoin, Monohydrate 75 MG Oral Capsule [Macrobid] Macrobid 100 MG Macrobid 100 MG 11/17/2020 12:00:00 AM EDT active Macrobid 100 MG eCW1 ([facility]) Mupirocin 0.02 MG/MG Topical Ointment Mupirocin 2 % Mupiroci n 2 % 11/14/2020 12:00:00 AM EDT active Mupiroci n 2 % eCW1 ([facility]) Mupirocin 0.02 MG/MG Topical Ointment Mupirocin 2 % Mupiroci n 2 % 11/14/2020 12:00:00 AM EDT active Mupiroci n 2 % eCW1 ([facility]) Mupirocin 0.02 MG/MG Topical Ointment Mupirocin 2 % Mupiroci n 2 % 11/14/2020 12:00:00 AM EDT active Mupiroci n 2 % eCW1 ([facility]) Mupirocin 0.02 MG/MG Topical Ointment Mupirocin 2 % Mupiroci n 2 % 11/14/2020 12:00:00 AM EDT active Mupiroci n 2 % eCW1 ([facility]) ferric carboxymaltose 50 MG/ML Injectabl e Solution [Injectafer] Injectafer 750 MG/15ML Injectafer 750 MG/15ML 11/14/2020 12:00:00 AM EDT active Injectafer 750 MG/15ML eCW1 ([facility]) Mupirocin 0.02 MG/MG Topical Ointment Mupirocin 2 % Mupiroci n 2 % 11/14/2020 12:00:00 AM EDT active Mupiroci n 2 % eCW1 ([facility]) ferric carboxymaltose 50 MG/ML Injectabl e Solution [Injectafer] Injectafer 750 MG/15ML Injectafer 750 MG/15ML 11/14/2020 12:00:00 AM EDT active Injectafer 750 MG/15ML eCW1 ([facility]) ferric carboxymaltose 50 MG/ML Injectabl e Solution [Injectafer] Injectafer 750 MG/15ML Injectafer 750 MG/15ML 11/14/2020 12:00:00 AM EDT active Injectafer 750 MG/15ML eCW1 ([facility]) ferric carboxymaltose 50 MG/ML Injectabl e Solution [Injectafer] Injectafer 750 MG/15ML Injectafer 750 MG/15ML 11/14/2020 12:00:00 AM EDT active Injectafer 750 MG/15ML eCW1 ([facility]) Mupirocin 0.02 MG/MG Topical Ointment Mupirocin 2 % Mupiroci n 2 % 11/14/2020 12:00:00 AM EDT active Mupiroci n 2 % eCW1 ([facility]) Mupirocin 0.02 MG/MG Topical Ointment Mupirocin 2 % Mupiroci n 2 % 11/14/2020 12:00:00 AM EDT active Mupiroci n 2 % eCW1 ([facility]) ferric carboxymaltose 50 MG/ML Injectabl e Solution [Injectafer] Injectafer 750 MG/15ML Injectafer 750 MG/15ML 11/14/2020 12:00:00 AM EDT active Injectafer 750 MG/15ML eCW1 ([facility]) ferric carboxymaltose 50 MG/ML Injectabl e Solution [Injectafer] Injectafer 750 MG/15ML Injectafer 750 MG/15ML 11/14/2020 12:00:00 AM EDT active Injectafer 750 MG/15ML eCW1 ([facility]) ferric carboxymaltose 50 MG/ML Injectabl e Solution [Injectafer] Injectafer 750 MG/15ML Injectafer 750 MG/15ML 11/14/2020 12:00:00 AM EDT active Injectafer 750 MG/15ML eCW1 ([facility]) ferric carboxymaltose 50 MG/ML Injectabl e Solution [Injectafer] Injectafer 750 MG/15ML Injectafer 750 MG/15ML 11/14/2020 12:00:00 AM EDT active Injectafer 750 MG/15ML eCW1 ([facility]) Mupirocin 0.02 MG/MG Topical Ointment Mupirocin 2 % Mupiroci n 2 % 11/14/2020 12:00:00 AM EDT active Mupiroci n 2 % eCW1 ([facility]) Mupirocin 0.02 MG/MG Topical Ointment Mupirocin 2 % Mupiroci n 2 % 11/14/2020 12:00:00 AM EDT active Mupiroci n 2 % eCW1 ([facility]) ferric carboxymaltose 50 MG/ML Injectabl e Solution [Injectafer] Injectafer 750 MG/15ML Injectafer 750 MG/15ML 11/14/2020 12:00:00 AM EDT active Injectafer 750 MG/15ML eCW1 ([facility]) ferric carboxymaltose 50 MG/ML Injectabl e Solution [Injectafer] Injectafer 750 MG/15ML Injectafer 750 MG/15ML 11/14/2020 12:00:00 AM EDT active Injectafer 750 MG/15ML eCW1 ([facility]) Mupirocin 0.02 MG/MG Topical Ointment Mupirocin 2 % Mupiroci n 2 % 11/14/2020 12:00:00 AM EDT active Mupiroci n 2 % eCW1 ([facility]) ferric carboxymaltose 50 MG/ML Injectabl e Solution [Injectafer] Injectafer 750 MG/15ML Injectafer 750 MG/15ML 11/14/2020 12:00:00 AM EDT active Injectafer 750 MG/15ML eCW1 ([facility]) Mupirocin 0.02 MG/MG Topical Ointment Mupirocin 2 % Mupiroci n 2 % 11/14/2020 12:00:00 AM EDT active Mupiroci n 2 % eCW1 ([facility]) ferric carboxymaltose 50 MG/ML Injectabl e Solution [Injectafer] Injectafer 750 MG/15ML Injectafer 750 MG/15ML 11/14/2020 12:00:00 AM EDT active Injectafer 750 MG/15ML eCW1 ([facility]) Mupirocin 0.02 MG/MG Topical Ointment Mupirocin 2 % Mupiroci n 2 % 11/14/2020 12:00:00 AM EDT active Mupiroci n 2 % eCW1 ([facility]) Mupirocin 0.02 MG/MG Topical Ointment Mupirocin 2 % Mupiroci n 2 % 11/14/2020 12:00:00 AM EDT active Mupiroci n 2 % eCW1 ([facility]) ferric carboxymaltose 50 MG/ML Injectabl e Solution [Injectafer] Injectafer 750 MG/15ML Injectafer 750 MG/15ML 11/14/2020 12:00:00 AM EDT active Injectafer 750 MG/15ML eCW1 ([facility]) ferric carboxymaltose 50 MG/ML Injectabl e Solution [Injectafer] Injectafer 750 MG/15ML Injectafer 750 MG/15ML 11/14/2020 12:00:00 AM EDT active Injectafer 750 MG/15ML eCW1 ([facility]) ferric carboxymaltose 50 MG/ML Injectabl e Solution [Injectafer] Injectafer 750 MG/15ML Injectafer 750 MG/15ML 11/14/2020 12:00:00 AM EDT active Injectafer 750 MG/15ML eCW1 ([facility]) Mupirocin 0.02 MG/MG Topical Ointment Mupirocin 2 % Mupiroci n 2 % 11/14/2020 12:00:00 AM EDT active Mupiroci n 2 % eCW1 ([facility]) Mupirocin 0.02 MG/MG Topical Ointment Mupirocin 2 % Mupiroci n 2 % 11/14/2020 12:00:00 AM EDT active e CW1 ([facility]) Mupirocin 0.02 MG/MG Topical Ointment Mupirocin 2 % Mupiroci n 2 % 11/14/2020 12:00:00 AM EDT active Mupiroci n 2 % eCW1 ([facility]) ferric carboxymaltose 50 MG/ML Injectabl e Solution [Injectafer] Injectafer 750 MG/15ML Injectafer 750 MG/15ML 11/14/2020 12:00:00 AM EDT active Injectafer 750 MG/15ML eCW1 ([facility]) ferric carboxymaltose 50 MG/ML Injectabl e Solution [Injectafer] Injectafer 750 MG/15ML Injectafer 750 MG/15ML 11/14/2020 12:00:00 AM EDT active eCW1 ([facility]) Mupirocin 0.02 MG/MG Topical Ointment Mupirocin 2 % Mupiroci n 2 % 11/14/2020 12:00:00 AM EDT active Mupiroci n 2 % eCW1 ([facility]) Mupirocin 0.02 MG/MG Topical Ointment Mupirocin 2 % Mupiroci n 2 % 11/14/2020 12:00:00 AM EDT active Mupiroci n 2 % eCW1 ([facility]) ferric carboxymaltose 50 MG/ML Injectabl e Solution [Injectafer] Injectafer 750 MG/15ML Injectafer 750 MG/15ML 11/14/2020 12:00:00 AM EDT active Injectafer 750 MG/15ML eCW1 ([facility]) Mupirocin 0.02 MG/MG Topical Ointment Mupirocin 2 % Mupiroci n 2 % 11/14/2020 12:00:00 AM EDT active Mupiroci n 2 % eCW1 ([facility]) ferric carboxymaltose 50 MG/ML Injectabl e Solution [Injectafer] Injectafer 750 MG/15ML Injectafer 750 MG/15ML 11/14/2020 12:00:00 AM EDT active Injectafer 750 MG/15ML eCW1 ([facility]) magnesium citrate 58.2 MG/ML Oral Solution Magnesium Citrate 11/11/2020 12:00:00 AM EDT active MEDENT ([facility], ) POLYETHYLENE GLYCOL 3350 142 MG/ML Oral Solution [Miralax] M iralax 11/11/2020 12:00:00 AM EDT active M EDENT ([facility], ) Glucometer UNK 11/03/2020 12:00:00 AM EDT active Glucometer eCW1 ([facility]) Blood Glucose Test - Blood Glucose Test - 11/03/2020 12:00:00 AM EDT active Blood Glucose Test - eCW1 ([facility]) Blood Glucose Test - Blood Glucose Test - 11/03/2020 12:00:00 AM EDT active Blood Glucose Test - eCW1 ([facility]) Blood Glucose Test - Blood Glucose Test - 11/03/2020 12:00:00 AM EDT active Blood Glucose Test - eCW1 ([facility]) Blood Glucose Test - Blood Glucose Test - 11/03/2020 12:00:00 AM EDT active Blood Glucose Test - eCW1 ([facility]) Blood Glucose Test - Blood Glucose Test - 11/03/2020 12:00:00 AM EDT active Blood Glucose Test - eCW1 ([facility]) Lancets - Lancets - 11/03/2020 12:00:00 AM EDT act андрей Lancets - eCW1 ([facility]) Glucometer UNK 11/03/2020 12:00:00 AM EDT active Glucometer eCW1 ([facility]) Glucometer UNK 11/03/2020 12:00:00 AM EDT active Glucometer eCW1 ([facility]) Glucometer UNK 11/03/2020 12:00:00 AM EDT active Glucometer eCW1 ([facility]) Glucometer UNK 11/03/2020 12:00:00 AM EDT active Glucometer eCW1 ([facility]) Blood Glucose Test - Blood Glucose Test - 11/03/2020 12:00:00 AM EDT active Blood Glucose Test - eCW1 ([facility]) Glucometer UNK 11/03/2020 12:00:00 AM EDT active Glucometer eCW1 ([facility]) Lancets - Lancets - 11/03/2020 12:00:00 AM EDT act андрей Lancets - eCW1 ([facility]) Blood Glucose Test - Blood Glucose Test - 11/03/2020 12:00:00 AM EDT active Blood Glucose Test - eCW1 ([facility]) Lancets - Lancets - 11/03/2020 12:00:00 AM EDT act андрей Lancets - eCW1 ([facility]) Lancets - Lancets - 11/03/2020 12:00:00 AM EDT act андрей Lancets - eCW1 ([facility]) Lancets - Lancets - 11/03/2020 12:00:00 AM EDT act андрей Lancets - eCW1 ([facility]) Lancets - Lancets - 11/03/2020 12:00:00 AM EDT act андрей Lancets - eCW1 ([facility]) Lancets - Lancets - 11/03/2020 12:00:00 AM EDT act андрей eCW1 ([facility]) Glucometer UNK 11/03/2020 12:00:00 AM EDT active Glucometer eCW1 ([facility]) Lancets - Lancets - 11/03/2020 12:00:00 AM EDT act андрей Lancets - eCW1 ([facility]) Blood Glucose Test - Blood Glucose Test - 11/03/2020 12:00:00 AM EDT active Blood Glucose Test - eCW1 ([facility]) Glucometer UNK 11/03/2020 12:00:00 AM EDT active Glucometer eCW1 ([facility]) Lancets - Lancets - 11/03/2020 12:00:00 AM EDT act андрей Lancets - eCW1 ([facility]) Blood Glucose Test - Blood Glucose Test - 11/03/2020 12:00:00 AM EDT active Blood Glucose Test - eCW1 ([facility]) Glucometer UNK 11/03/2020 12:00:00 AM EDT active Glucometer eCW1 ([facility]) Blood Glucose Test - Blood Glucose Test - 11/03/2020 12:00:00 AM EDT active Blood Glucose Test - eCW1 ([facility]) Lancets - Lancets - 11/03/2020 12:00:00 AM EDT act андрей Lancets - eCW1 ([facility]) Glucometer UNK 11/03/2020 12:00:00 AM EDT active Glucometer eCW1 ([facility]) Blood Glucose Test - Blood Glucose Test - 11/03/2020 12:00:00 AM EDT active Blood Glucose Test - eCW1 ([facility]) Lancets - Lancets - 11/03/2020 12:00:00 AM EDT act андрей Lancets - eCW1 ([facility]) Blood Glucose Test - Blood Glucose Test - 11/03/2020 12:00:00 AM EDT active Blood Glucose Test - eCW1 ([facility]) Glucometer UNK 11/03/2020 12:00:00 AM EDT active Glucometer eCW1 ([facility]) Lancets - Lancets - 11/03/2020 12:00:00 AM EDT act андрей Lancets - eCW1 ([facility]) Blood Glucose Test - Blood Glucose Test - 11/03/2020 12:00:00 AM EDT active Blood Glucose Test - eCW1 ([facility]) Glucometer UNK 11/03/2020 12:00:00 AM EDT active Glucometer eCW1 ([facility]) Blood Glucose Test - Blood Glucose Test - 11/03/2020 12:00:00 AM EDT active Blood Glucose Test - eCW1 ([facility]) Glucometer UNK 11/03/2020 12:00:00 AM EDT active Glucometer eCW1 ([facility]) Blood Glucose Test - Blood Glucose Test - 11/03/2020 12:00:00 AM EDT active Blood Glucose Test - eCW1 ([facility]) Lancets - Lancets - 11/03/2020 12:00:00 AM EDT act андрей Lancets - eCW1 ([facility]) Blood Glucose Test - Blood Glucose Test - 11/03/2020 12:00:00 AM EDT active Blood Glucose Test - eCW1 ([facility]) Lancets - Lancets - 11/03/2020 12:00:00 AM EDT act андрей Lancets - eCW1 ([facility]) Lancets - Lancets - 11/03/2020 12:00:00 AM EDT act андрей Lancets - eCW1 ([facility]) Lancets - Lancets - 11/03/2020 12:00:00 AM EDT act андрей Lancets - eCW1 ([facility]) Glucometer UNK 11/03/2020 12:00:00 AM EDT active Glucometer eCW1 ([facility]) Lancets - Lancets - 11/03/2020 12:00:00 AM EDT act андрей Lancets - eCW1 ([facility]) Lancets - Lancets - 11/03/2020 12:00:00 AM EDT act андрей Lancets - eCW1 ([facility]) Glucometer UNK 11/03/2020 12:00:00 AM EDT active Glucometer eCW1 ([facility]) Blood Glucose Test - Blood Glucose Test - 11/03/2020 12:00:00 AM EDT active Blood Glucose Test - eCW1 ([facility]) Blood Glucose Test - Blood Glucose Test - 11/03/2020 12:00:00 AM EDT active Blood Glucose Test - eCW1 ([facility]) Glucometer UNK 11/03/2020 12:00:00 AM EDT active Glucometer eCW1 ([facility]) Lancets - Lancets - 11/03/2020 12:00:00 AM EDT act андрей Lancets - eCW1 ([facility]) Blood Glucose Test - Blood Glucose Test - 11/03/2020 12:00:00 AM EDT active Blood Glucose Test - eCW1 ([facility]) Glucometer UNK 11/03/2020 12:00:00 AM EDT active Glucometer eCW1 ([facility]) Lancets - Lancets - 11/03/2020 12:00:00 AM EDT act андрей Lancets - eCW1 ([facility]) Lancets - Lancets - 11/03/2020 12:00:00 AM EDT act андрей Lancets - eCW1 ([facility]) Glucometer UNK 11/03/2020 12:00:00 AM EDT active eCW1 ([facility]) Lancets - Lancets - 11/03/2020 12:00:00 AM EDT act андрей Lancets - eCW1 ([facility]) Glucometer UNK 11/03/2020 12:00:00 AM EDT active Glucometer eCW1 ([facility]) Blood Glucose Test - Blood Glucose Test - 11/03/2020 12:00:00 AM EDT active Blood Glucose Test - eCW1 ([facility]) Blood Glucose Test - Blood Glucose Test - 11/03/2020 12:00:00 AM EDT active eCW1 ([facility]) Blood Glucose Test - Blood Glucose Test - 11/03/2020 12:00:00 AM EDT active Blood Glucose Test - eCW1 ([facility]) Lancets - Lancets - 11/03/2020 12:00:00 AM EDT act андрей Lancets - eCW1 ([facility]) Blood Glucose Test - Blood Glucose Test - 11/03/2020 12:00:00 AM EDT active Blood Glucose Test - eCW1 ([facility]) Glucometer UNK 11/03/2020 12:00:00 AM EDT active Glucometer eCW1 ([facility]) Glucometer UNK 11/03/2020 12:00:00 AM EDT active Glucometer eCW1 ([facility]) Glucometer UNK 11/03/2020 12:00:00 AM EDT active Glucometer eCW1 ([facility]) Glucometer UNK 11/03/2020 12:00:00 AM EDT active Glucometer eCW1 ([facility]) POLYETHYLENE GLYCOL 3350 142 MG/ML Oral Solution [Miralax] M iralax 10/15/2020 12:00:00 AM EDT ORAL active M EDENT ([facility]) Alprazolam 1 MG Oral Tablet Alprazolam 08/11/2020 12:00:00 AM EDT ORAL active MEDENT ([facility] [employer] [place]) Fluconazole 150 MG Oral Tablet [Diflucan] Diflucan 08/11/2020 1 2:00:00 AM EDT ORAL active MEDENT ([facility] [employer] [facility]) Botox 50 Units For Waste For 200 Units JW Modifier 07/23/2020 12:00:00 AM EDT completed MEDENT ([facility] [employer] [place]) Medication administered onsite Botox 200 Units- I Vial 07/23/2020 12:00:00 AM EDT completed MEDENT ([facility] [employer] [place]) Medication administered onsite cefdinir 300 MG Oral Capsule Cefdinir 07/16/2020 12:00:00 AM EDT ORAL completed MEDENT ([facility] [employer] [facility]) 60 ACTUAT Fluticasone propionate 0.25 MG /ACTUAT / salmeterol 0.05 MG/ACTUAT Dry Powder Inhaler [Advair] Advair Diskus 250-50 MCG/DOSE Advair Diskus 250-50 MCG/DOSE 07/07/2020 12:00:00 AM EDT 1.0 {puff} activ e Advair Diskus 250-50 MCG/DOSE eCW1 ([facility]) 60 ACTUAT Fluticasone propionate 0.25 MG /ACTUAT / salmeterol 0.05 MG/ACTUAT Dry Powder Inhaler [Advair] Advair Diskus 250-50 MCG/DOSE Advair Diskus 250-50 MCG/DOSE 07/07/2020 12:00:00 AM EDT 1.0 {puff} activ e Advair Diskus 250-50 MCG/DOSE eCW1 ([facility]) 60 ACTUAT Fluticasone propionate 0.25 MG /ACTUAT / salmeterol 0.05 MG/ACTUAT Dry Powder Inhaler [Advair] Advair Diskus 250-50 MCG/DOSE Advair Diskus 250-50 MCG/DOSE 07/07/2020 12:00:00 AM EDT 1.0 {puff} activ e Advair Diskus 250-50 MCG/DOSE eCW1 ([facility]) 60 ACTUAT Fluticasone propionate 0.25 MG /ACTUAT / salmeterol 0.05 MG/ACTUAT Dry Powder Inhaler [Advair] Advair Diskus 250-50 MCG/DOSE Advair Diskus 250-50 MCG/DOSE 07/07/2020 12:00:00 AM EDT 1.0 {puff} activ e Advair Diskus 250-50 MCG/DOSE eCW1 ([facility]) 60 ACTUAT Fluticasone propionate 0.25 MG /ACTUAT / salmeterol 0.05 MG/ACTUAT Dry Powder Inhaler [Advair] Advair Diskus 250-50 MCG/DOSE Advair Diskus 250-50 MCG/DOSE 07/07/2020 12:00:00 AM EDT 1.0 {puff} activ e Advair Diskus 250-50 MCG/DOSE eCW1 ([facility]) 60 ACTUAT Fluticasone propionate 0.25 MG /ACTUAT / salmeterol 0.05 MG/ACTUAT Dry Powder Inhaler [Advair] Advair Diskus 250-50 MCG/DOSE Advair Diskus 250-50 MCG/DOSE 07/07/2020 12:00:00 AM EDT 1.0 {puff} activ e Advair Diskus 250-50 MCG/DOSE eCW1 ([facility]) 60 ACTUAT Fluticasone propionate 0.25 MG /ACTUAT / salmeterol 0.05 MG/ACTUAT Dry Powder Inhaler [Advair] Advair Diskus 250-50 MCG/DOSE Advair Diskus 250-50 MCG/DOSE 07/07/2020 12:00:00 AM EDT 1.0 {puff} activ e Advair Diskus 250-50 MCG/DOSE eCW1 ([facility]) 60 ACTUAT Fluticasone propionate 0.25 MG /ACTUAT / salmeterol 0.05 MG/ACTUAT Dry Powder Inhaler [Advair] Advair Diskus 250-50 MCG/DOSE Advair Diskus 250-50 MCG/DOSE 07/07/2020 12:00:00 AM EDT 1.0 {puff} activ e Advair Diskus 250-50 MCG/DOSE eCW1 ([facility]) 60 ACTUAT Fluticasone propionate 0.25 MG /ACTUAT / salmeterol 0.05 MG/ACTUAT Dry Powder Inhaler [Advair] Advair Diskus 250-50 MCG/DOSE Advair Diskus 250-50 MCG/DOSE 07/07/2020 12:00:00 AM EDT 1.0 {puff} activ e Advair Diskus 250-50 MCG/DOSE eCW1 ([facility]) 60 ACTUAT Fluticasone propionate 0.25 MG /ACTUAT / salmeterol 0.05 MG/ACTUAT Dry Powder Inhaler [Advair] Advair Diskus 250-50 MCG/DOSE Advair Diskus 250-50 MCG/DOSE 07/07/2020 12:00:00 AM EDT 1.0 {puff} activ e Advair Diskus 250-50 MCG/DOSE eCW1 ([facility]) 60 ACTUAT Fluticasone propionate 0.25 MG /ACTUAT / salmeterol 0.05 MG/ACTUAT Dry Powder Inhaler [Advair] Advair Diskus 250-50 MCG/DOSE Advair Diskus 250-50 MCG/DOSE 07/07/2020 12:00:00 AM EDT 1.0 {puff} activ e Advair Diskus 250-50 MCG/DOSE eCW1 ([facility]) 60 ACTUAT Fluticasone propionate 0.25 MG /ACTUAT / salmeterol 0.05 MG/ACTUAT Dry Powder Inhaler [Advair] Advair Diskus 250-50 MCG/DOSE Advair Diskus 250-50 MCG/DOSE 07/07/2020 12:00:00 AM EDT 1.0 {puff} activ e Advair Diskus 250-50 MCG/DOSE eCW1 ([facility]) 60 ACTUAT Fluticasone propionate 0.25 MG /ACTUAT / salmeterol 0.05 MG/ACTUAT Dry Powder Inhaler [Advair] Advair Diskus 250-50 MCG/DOSE Advair Diskus 250-50 MCG/DOSE 07/07/2020 12:00:00 AM EDT 1.0 {puff} activ e Advair Diskus 250-50 MCG/DOSE eCW1 ([facility]) Alprazolam 1 MG Oral Tablet Alprazolam 05/29/2020 12:00:00 AM EDT ORAL completed MEDENT ([facility] [employer] [place] POLYETHYLENE GLYCOL 3350 142 MG/ML Oral Solution [Dawn lax] MiraLax 17 GM/SCOOP MiraLax 17 GM/SCOOP 05/26/2020 12:00:00 AM EDT active MiraLax 17 GM/SCOOP eCW1 ([facility]) POLYETHYLENE GLYCOL 3350 142 MG/ML Oral Solution [Dawn lax] MiraLax 17 GM/SCOOP MiraLax 17 GM/SCOOP 05/26/2020 12:00:00 AM EDT active MiraLax 17 GM/SCOOP eCW1 ([facility]) POLYETHYLENE GLYCOL 3350 142 MG/ML Oral Solution [Dawn lax] MiraLax 17 GM/SCOOP MiraLax 17 GM/SCOOP 05/26/2020 12:00:00 AM EDT active MiraLax 17 GM/SCOOP eCW1 ([facility]) POLYETHYLENE GLYCOL 3350 142 MG/ML Oral Solution [Dawn lax] MiraLax 17 GM/SCOOP MiraLax 17 GM/SCOOP 05/26/2020 12:00:00 AM EDT active MiraLax 17 GM/SCOOP eCW1 ([facility]) POLYETHYLENE GLYCOL 3350 142 MG/ML Oral Solution [Dawn lax] MiraLax 17 GM/SCOOP MiraLax 17 GM/SCOOP 05/26/2020 12:00:00 AM EDT active MiraLax 17 GM/SCOOP eCW1 ([facility]) POLYETHYLENE GLYCOL 3350 142 MG/ML Oral Solution [Dawn lax] MiraLax 17 GM/SCOOP MiraLax 17 GM/SCOOP 05/26/2020 12:00:00 AM EDT active MiraLax 17 GM/SCOOP eCW1 ([facility]) POLYETHYLENE GLYCOL 3350 142 MG/ML Oral Solution [Dawn lax] MiraLax 17 GM/SCOOP MiraLax 17 GM/SCOOP 05/26/2020 12:00:00 AM EDT active MiraLax 17 GM/SCOOP eCW1 ([facility]) POLYETHYLENE GLYCOL 3350 142 MG/ML Oral Solution [Dawn lax] MiraLax 17 GM/SCOOP MiraLax 17 GM/SCOOP 05/26/2020 12:00:00 AM EDT active MiraLax 17 GM/SCOOP eCW1 ([facility]) POLYETHYLENE GLYCOL 3350 142 MG/ML Oral Solution [Dawn lax] MiraLax 17 GM/SCOOP MiraLax 17 GM/SCOOP 05/26/2020 12:00:00 AM EDT active MiraLax 17 GM/SCOOP eCW1 ([facility]) POLYETHYLENE GLYCOL 3350 142 MG/ML Oral Solution [Dawn lax] MiraLax 17 GM/SCOOP MiraLax 17 GM/SCOOP 05/26/2020 12:00:00 AM EDT active MiraLax 17 GM/SCOOP eCW1 ([facility]) POLYETHYLENE GLYCOL 3350 142 MG/ML Oral Solution [Dawn lax] MiraLax 17 GM/SCOOP MiraLax 17 GM/SCOOP 05/26/2020 12:00:00 AM EDT active MiraLax 17 GM/SCOOP eCW1 ([facility]) 60 ACTUAT Albuterol 0.09 MG/ACTUAT Metered Dose Inhaler Albu terol Sulfate HFA 04/25/2020 12:00:00 AM EST RESPIRATORY active MEDENT ([facility] ) NITROFURANTOIN, MACROCRYSTALS 50 MG Oral Capsule [Macrodanti n] Macrodantin 04/09/2020 12:00:00 AM EST ORAL completed MEDENT ([facility] [employer]) Ciprofloxacin 500 MG Oral Tablet Ciprofloxacin HCL 04/09/2020 12:00 :00 AM EST ORAL completed MEDENT ([facility] [employer] [place]) Cyclobenzaprine hydrochloride 10 MG Oral Tablet Cyclob enzaprine HCl 10 MG Cyclobenzaprine HCl 10 MG 02/07/2020 12:00:00 AM EST active Cyclobenzaprine HCl 10 MG eCW1 ([facility]) Cyclobenzaprine hydrochloride 10 MG Oral Tablet Cyclob enzaprine HCl 10 MG Cyclobenzaprine HCl 10 MG 02/07/2020 12:00:00 AM EST active Cyclobenzaprine HCl 10 MG eCW1 ([facility]) Cyclobenzaprine hydrochloride 5 MG Oral Tablet Cyclobe nzaprine HCl 5 MG Cyclobenzaprine HCl 5 MG 02/07/2020 12:00:00 AM EST active Cyclobenzaprine HCl 5 MG eCW1 ([facility]) Cyclobenzaprine hydrochloride 10 MG Oral Tablet Cyclob enzaprine HCl 10 MG Cyclobenzaprine HCl 10 MG 02/07/2020 12:00:00 AM EST active Cyclobenzaprine HCl 10 MG eCW1 ([facility]) Metronidazole 500 MG Oral Tablet Metronidazole 01/14/2020 12:00:00 AM EST ORAL active MEDENT ([facility] [employer] [place]) Tamsulosin hydrochloride 0.4 MG Oral Capsule Tamsulosin HCL 01/10/2020 12:00:00 AM EST active MEDENT ([facility] [employer] [place]) NITROFURANTOIN, MACROCRYSTALS 25 MG / Ni trofurantoin, Monohydrate 75 MG Oral Capsule [Macrobid] Macrobid 01/10/2020 12:00:00 AM EST ORAL completed MEDENT ([facility] [place] Ciprofloxacin 250 MG Oral Tablet Ciprofloxacin HCL 12/13/2019 12:00 :00 AM EDT ORAL completed MEDENT ([facility] [employer] [place]) Amitriptyline Hydrochloride 25 MG Oral Tablet Amitript yline HCl 25 MG Amitriptyline HCl 25 MG 12/06/2019 12:00:00 AM EDT active Amitriptyline HCl 25 MG eCW1 ([facility]) Amitriptyline Hydrochloride 25 MG Oral Tablet Amitript yline HCl 25 MG Amitriptyline HCl 25 MG 12/06/2019 12:00:00 AM EDT active Amitriptyline HCl 25 MG eCW1 ([facility]) Amitriptyline Hydrochloride 25 MG Oral Tablet Amitript yline HCl 25 MG Amitriptyline HCl 25 MG 12/06/2019 12:00:00 AM EDT active Amitriptyline HCl 25 MG eCW1 ([facility]) Amitriptyline Hydrochloride 25 MG Oral Tablet Amitript yline HCl 25 MG Amitriptyline HCl 25 MG 12/06/2019 12:00:00 AM EDT active Amitriptyline HCl 25 MG eCW1 ([facility]) Amitriptyline Hydrochloride 25 MG Oral Tablet Amitript yline HCl 25 MG Amitriptyline HCl 25 MG 12/06/2019 12:00:00 AM EDT active Amitriptyline HCl 25 MG eCW1 ([facility]) Amitriptyline Hydrochloride 25 MG Oral Tablet Amitript yline HCl 25 MG Amitriptyline HCl 25 MG 12/06/2019 12:00:00 AM EDT active Amitriptyline HCl 25 MG eCW1 ([facility]) Botox 200 Units- I Vial 11/27/2019 12:00:00 AM EDT completed MEDENT ([facility] [employer]) Medication administered onsite Botox 50 Units For Waste For 200 Units JW Modifier 11/27/2019 12:00:00 AM EDT completed MEDENT ([facility] [employer]) Medication administered onsite Ciprofloxacin 250 MG Oral Tablet Ciprofloxacin HCL 11/27/2019 12:00 :00 AM EDT ORAL completed MEDENT ([facility] [employer] [place]) Alprazolam 1 MG Oral Tablet Alprazolam 10/11/2019 12:00:00 AM EDT ORAL completed MEDENT ([facility] [employer] [place]) cefdinir 300 MG Oral Capsule cefdinir 300 mg capsule cefdinir 30 0 mg capsule completed cefdinir 300 M G Oral Capsule MARILIA ([facility]) Methylprednisolone 4 MG Oral Tablet methylprednisolone 4 mg tablet 1 tab daily methylprednisolone 4 mg tablet 1 tab daily completed methylprednisolone 4 MG Oral Tablet MARILIA ([facility]) Doxycycline Monohydrate 100 MG Oral Caps ule doxycycline monohydrate 100 mg capsule TAKE ONE CAPSULE BY MOUTH TWICE DAILY FOR SEVEN DAYS doxycycline monohydrate 100 mg capsule TAKE ONE CAPSULE BY MOUTH TWICE DAILY FOR SEVEN DAYS completed doxycycline mo nohydrate 100 MG Oral Capsule MARILIA ([facility]) cefdinir 300 MG Oral Capsule cefdinir 300 mg capsule cefdinir 30 0 mg capsule completed cefdinir 300 M G Oral Capsule MARILIA ([facility]) Amoxicillin 500 MG / Clavulanate 125 MG Oral Tablet amoxicillin 500 mg-potassium clavulanate 125 mg tablet TAKE ONE TABLET BY MOUTH EVERY TWELVE HOURS amoxicillin 500 mg-potassium clavulanate 125 mg tablet TAKE ONE TABLET BY MOUTH EVERY TWELVE HOURS completed amoxicillin 500 MG / clavulanate 125 MG Oral Tablet MARILIA ([facility]) 0.3 ML Enoxaparin sodium 100 MG/ML Prefi lled Syringe enoxaparin 30 mg/0.3 mL subcutaneous syringe INJECT 0.3 MILLILITERS SUBCUTANEOUSLY EVERY 12 HOURS FOR TWO WEEKS enoxaparin 30 mg/0.3 mL subcutaneous syr travis INJECT 0.3 MILLILITERS SUBCUTANEOUSLY EVERY 12 HOURS FOR TWO WEEKS completed 0.3 ML enoxaparin sodium 100 MG/ML Prefilled Syringe MARILIA ([facility]) Methylprednisolone 4 MG Oral Tablet methylprednisolone 4 mg tablet 1 tab daily methylprednisolone 4 mg tablet 1 tab daily completed methylprednisolone 4 MG Oral Tablet MARILIA ([facility]) tramadol hydrochloride 50 MG Oral Tablet tramadol 50 mg tablet TAKE ONE TABLET BY MOUTH EVERY 6 HOURS NEEDED FOR PAIN MAX DAILY DOSE FOUR TABLETS tramadol 50 mg tablet TAKE ONE TABLET BY MOUTH EVERY 6 HOURS NEEDED FOR PAIN MAX DAILY DOSE FOUR TABLETS completed tramadol hydrochloride 50 MG Oral Tablet MARILIA ([facility]) Oxycodone Hydrochloride 5 MG Oral Tablet oxycodone 5 mg tablet TAKE 1 TO 2 TABLETS BY MOUTH EVERY FOUR HOURS NEEDED FOR PAIN MAX DAILY DOSE 12 CAPSULES oxycodone 5 mg tablet TAKE 1 TO 2 TABLETS BY MOUTH EVERY FOUR HOURS NEEDED FOR PAIN MAX DAILY DOSE 12 CAPSULES co mpleted oxycodone hydrochloride 5 MG Oral Tablet MARILIA ([facility]) Prednisone 20 MG Oral Tablet prednisone 20 mg tablet TAKE ONE TABLET BY MOUTH ONCE DAILY FOR FIVE DAYS prednisone 20 mg tablet TAKE ONE TABLET BY MOUTH ONCE DAILY FOR FIVE DAYS completed pr ednisone 20 MG Oral Tablet MARILIA ([facility]) glimepiride 1 MG Oral Tablet glimepiride 1 mg tablet glimepiride 1 mg tablet completed glimepiride 1 MG Oral Tablet MARILIA ([facility]) Alprazolam 1 MG Oral Tablet alprazolam 1 mg tablet alprazolam 1 mg ta blet completed alprazolam 1 MG Oral Tablet MARILIA ([facility]) Alprazolam 1 MG Oral Tablet alprazolam 1 mg tablet alprazolam 1 mg ta blet completed alprazolam 1 MG Oral Tablet MARILIA ([facility]) 0.3 ML Enoxaparin sodium 100 MG/ML Prefi lled Syringe enoxaparin 30 mg/0.3 mL subcutaneous syringe INJECT 0.3 MILLILITERS SUBCUTANEOUSLY EVERY 12 HOURS FOR TWO WEEKS enoxaparin 30 mg/0.3 mL subcutaneous syr travis INJECT 0.3 MILLILITERS SUBCUTANEOUSLY EVERY 12 HOURS FOR TWO WEEKS completed 0.3 ML enoxaparin sodium 100 MG/ML Prefilled Syringe MARILIA ([facility]) Methylprednisolone 2 MG Oral Tablet [Med rol] Medrol 2 mg tablet 1 tablet every other day Medrol 2 mg tablet 1 tablet every other day completed methylprednisolone 2 MG Oral Tablet [Medrol] MARILIA ([facility]) Doxycycline Monohydrate 100 MG Oral Caps ule doxycycline monohydrate 100 mg capsule TAKE ONE CAPSULE BY MOUTH TWICE DAILY FOR SEVEN DAYS doxycycline monohydrate 100 mg capsule TAKE ONE CAPSULE BY MOUTH TWICE DAILY FOR SEVEN DAYS completed doxycycline mo nohydrate 100 MG Oral Capsule MARILIA ([facility]) Prednisone 20 MG Oral Tablet prednisone 20 mg tablet TAKE ONE TABLET BY MOUTH ONCE DAILY FOR FIVE DAYS prednisone 20 mg tablet TAKE ONE TABLET BY MOUTH ONCE DAILY FOR FIVE DAYS completed pr ednisone 20 MG Oral Tablet MARILIA ([facility]) Amoxicillin 500 MG / Clavulanate 125 MG Oral Tablet amoxicillin 500 mg-potassium clavulanate 125 mg tablet TAKE ONE TABLET BY MOUTH EVERY TWELVE HOURS amoxicillin 500 mg-potassium clavulanate 125 mg tablet TAKE ONE TABLET BY MOUTH EVERY TWELVE HOURS completed amoxicillin 500 MG / clavulanate 125 MG Oral Tablet MARILIA ([facility]) Alprazolam 1 MG Oral Tablet alprazolam 1 mg tablet alprazolam 1 mg ta blet completed alprazolam 1 MG Oral Tablet MARILIA ([facility]) 0.3 ML Enoxaparin sodium 100 MG/ML Prefi lled Syringe enoxaparin 30 mg/0.3 mL subcutaneous syringe INJECT 0.3 MILLILITERS SUBCUTANEOUSLY EVERY 12 HOURS FOR TWO WEEKS enoxaparin 30 mg/0.3 mL subcutaneous syr travis INJECT 0.3 MILLILITERS SUBCUTANEOUSLY EVERY 12 HOURS FOR TWO WEEKS completed 0.3 ML enoxaparin sodium 100 MG/ML Prefilled Syringe MARILIA ([facility]) Prednisone 20 MG Oral Tablet prednisone 20 mg tablet TAKE ONE TABLET BY MOUTH ONCE DAILY FOR FIVE DAYS prednisone 20 mg tablet TAKE ONE TABLET BY MOUTH ONCE DAILY FOR FIVE DAYS completed pr ednisone 20 MG Oral Tablet MARILIA ([facility]) 0.3 ML Enoxaparin sodium 100 MG/ML Prefi lled Syringe enoxaparin 30 mg/0.3 mL subcutaneous syringe INJECT 0.3 MILLILITERS SUBCUTANEOUSLY EVERY 12 HOURS FOR TWO WEEKS enoxaparin 30 mg/0.3 mL subcutaneous syr travis INJECT 0.3 MILLILITERS SUBCUTANEOUSLY EVERY 12 HOURS FOR TWO WEEKS completed 0.3 ML enoxaparin sodium 100 MG/ML Prefilled Syringe MARILIA ([facility]) 0.3 ML Enoxaparin sodium 100 MG/ML Prefi lled Syringe enoxaparin 30 mg/0.3 mL subcutaneous syringe INJECT 0.3 MILLILITERS SUBCUTANEOUSLY EVERY 12 HOURS FOR TWO WEEKS enoxaparin 30 mg/0.3 mL subcutaneous syr travis INJECT 0.3 MILLILITERS SUBCUTANEOUSLY EVERY 12 HOURS FOR TWO WEEKS completed 0.3 ML enoxaparin sodium 100 MG/ML Prefilled Syringe MARILIA ([facility]) Amoxicillin 500 MG / Clavulanate 125 MG Oral Tablet amoxicillin 500 mg-potassium clavulanate 125 mg tablet TAKE ONE TABLET BY MOUTH EVERY TWELVE HOURS amoxicillin 500 mg-potassium clavulanate 125 mg tablet TAKE ONE TABLET BY MOUTH EVERY TWELVE HOURS completed amoxicillin 500 MG / clavulanate 125 MG Oral Tablet MARILIA ([facility]) Doxycycline Monohydrate 100 MG Oral Caps ule doxycycline monohydrate 100 mg capsule TAKE ONE CAPSULE BY MOUTH TWICE DAILY FOR SEVEN DAYS doxycycline monohydrate 100 mg capsule TAKE ONE CAPSULE BY MOUTH TWICE DAILY FOR SEVEN DAYS completed doxycycline mo nohydrate 100 MG Oral Capsule MARILIA ([facility]) Acetaminophen 325 MG / Oxycodone Hydroch loride 5 MG Oral Tablet oxycodone- acetaminophen 5 mg-325 mg tablet oxycodone-acetaminophen 5 mg-325 mg tablet completed acetaminop hen 325 MG / oxycodone hydrochloride 5 MG Oral Tablet MARILIA ([facility]) glimepiride 1 MG Oral Tablet glimepiride 1 mg tablet glimepiride 1 mg tablet completed glimepiride 1 MG Oral Tablet MARILIA ([facility]) Estradiol 0.1 MG/ML Vaginal Cream estradiol 0.01% (0.1 mg/gram) vaginal cream estradiol 0.01% (0.1 mg/gram) vaginal cream completed estradiol 0.1 MG/ML Vaginal Cream MARILIA ([facility]) Prednisone 20 MG Oral Tablet prednisone 20 mg tablet TAKE ONE TABLET BY MOUTH ONCE DAILY FOR FIVE DAYS prednisone 20 mg tablet TAKE ONE TABLET BY MOUTH ONCE DAILY FOR FIVE DAYS completed pr ednisone 20 MG Oral Tablet MARILIA ([facility]) glimepiride 2 MG Oral Tablet glimepiride 2 mg tablet TAKE ONE TABLET BY MOUTH @8AM and TAKE ONE TABLET @8PM glimepiride 2 mg tablet TAKE ONE TABLET BY MOUTH @8AM and TAKE ONE TABLET @8PM complete d glimepiride 2 MG Oral Tablet MARILIA ([facility]) Cyclobenzaprine hydrochloride 5 MG Oral Tablet cyclobenzaprine 5 mg tablet TAKE ONE TABLET BY MOUTH @8AM and TAKE ONE TABLET @12PM and TAKE ONE TABLET @8PM cyclobenzaprine 5 mg tablet TAKE ONE TABLET BY MOUTH @8AM and TAKE ONE TABLET @12PM and TAKE ONE TABLET @8PM complet ed cyclobenzaprine hydrochloride 5 MG Oral Tablet MARILIA ([facility]) Acetaminophen 325 MG / Oxycodone Hydroch loride 5 MG Oral Tablet oxycodone- acetaminophen 5 mg-325 mg tablet oxycodone-acetaminophen 5 mg-325 mg tablet completed acetaminop hen 325 MG / oxycodone hydrochloride 5 MG Oral Tablet MARILIA ([facility]) tramadol hydrochloride 50 MG Oral Tablet tramadol 50 mg tablet TAKE ONE TABLET BY MOUTH EVERY 6 HOURS NEEDED FOR PAIN MAX DAILY DOSE FOUR TABLETS tramadol 50 mg tablet TAKE ONE TABLET BY MOUTH EVERY 6 HOURS NEEDED FOR PAIN MAX DAILY DOSE FOUR TABLETS completed tramadol hydrochloride 50 MG Oral Tablet MARILIA ([facility]) Estradiol 0.1 MG/ML Vaginal Cream estradiol 0.01% (0.1 mg/gram) vaginal cream estradiol 0.01% (0.1 mg/gram) vaginal cream completed estradiol 0.1 MG/ML Vaginal Cream MARILIA ([facility]) Estradiol 0.1 MG/ML Vaginal Cream estradiol 0.01% (0.1 mg/gram) vaginal cream estradiol 0.01% (0.1 mg/gram) vaginal cream completed estradiol 0.1 MG/ML Vaginal Cream [facility] ([facility]) Prednisone 20 MG Oral Tablet prednisone 20 mg tablet TAKE ONE TABLET BY MOUTH ONCE DAILY FOR FIVE DAYS prednisone 20 mg tablet TAKE ONE TABLET BY MOUTH ONCE DAILY FOR FIVE DAYS completed pr ednisone 20 MG Oral Tablet [facility] ([facility]) Doxycycline Monohydrate 100 MG Oral Caps ule doxycycline monohydrate 100 mg capsule TAKE ONE CAPSULE BY MOUTH TWICE DAILY FOR SEVEN DAYS doxycycline monohydrate 100 mg capsule TAKE ONE CAPSULE BY MOUTH TWICE DAILY FOR SEVEN DAYS completed doxycycline mo nohydrate 100 MG Oral Capsule [facility] ([facility]) Methylprednisolone 4 MG Oral Tablet methylprednisolone 4 mg tablet 1 tab daily methylprednisolone 4 mg tablet 1 tab daily completed methylprednisolone 4 MG Oral Tablet [facility] ([facility]) Ciprofloxacin 250 MG Oral Tablet ciprofl oxacin 250 mg tablet TAKE ONE TABLET BY MOUTH TWICE DAILY FOR 3 DAYS ciprofloxacin 250 mg tablet TAKE ONE TAB LET BY MOUTH TWICE DAILY FOR 3 DAYS completed ciprofloxacin 250 MG Oral Tablet [facility] ([facility]) Methylprednisolone 2 MG Oral Tablet [Med rol] Medrol 2 mg tablet 1 tablet every other day Medrol 2 mg tablet 1 tablet every other day completed methylprednisolone 2 MG Oral Tablet [Medrol] [facility] ([facility]) Amoxicillin 500 MG / Clavulanate 125 MG Oral Tablet amoxicillin 500 mg-potassium clavulanate 125 mg tablet TAKE ONE TABLET BY MOUTH EVERY TWELVE HOURS amoxicillin 500 mg-potassium clavulanate 125 mg tablet TAKE ONE TABLET BY MOUTH EVERY TWELVE HOURS completed amoxicillin 500 MG / clavulanate 125 MG Oral Tablet [facility] ([facility]) cefdinir 300 MG Oral Capsule cefdinir 300 mg capsule cefdinir 30 0 mg capsule completed cefdinir 300 M G Oral Capsule [facility] ([facility]) Doxycycline Monohydrate 100 MG Oral Caps ule doxycycline monohydrate 100 mg capsule TAKE ONE CAPSULE BY MOUTH TWICE DAILY FOR SEVEN DAYS doxycycline monohydrate 100 mg capsule TAKE ONE CAPSULE BY MOUTH TWICE DAILY FOR SEVEN DAYS completed doxycycline mo nohydrate 100 MG Oral Capsule [facility] ([facility]) Prednisone 20 MG Oral Tablet prednisone 20 mg tablet TAKE ONE TABLET BY MOUTH ONCE DAILY FOR FIVE DAYS prednisone 20 mg tablet TAKE ONE TABLET BY MOUTH ONCE DAILY FOR FIVE DAYS completed pr ednisone 20 MG Oral Tablet [facility] ([facility]) Estradiol 0.1 MG/ML Vaginal Cream estradiol 0.01% (0.1 mg/gram) vaginal cream estradiol 0.01% (0.1 mg/gram) vaginal cream completed estradiol 0.1 MG/ML Vaginal Cream [facility] ([facility]) Amoxicillin 500 MG / Clavulanate 125 MG Oral Tablet amoxicillin 500 mg-potassium clavulanate 125 mg tablet TAKE ONE TABLET BY MOUTH EVERY TWELVE HOURS amoxicillin 500 mg-potassium clavulanate 125 mg tablet TAKE ONE TABLET BY MOUTH EVERY TWELVE HOURS completed amoxicillin 500 MG / clavulanate 125 MG Oral Tablet [facility] ([facility]) 0.3 ML Enoxaparin sodium 100 MG/ML Prefi lled Syringe enoxaparin 30 mg/0.3 mL subcutaneous syringe INJECT 0.3 MILLILITERS SUBCUTANEOUSLY EVERY 12 HOURS FOR TWO WEEKS enoxaparin 30 mg/0.3 mL subcutaneous syr travis INJECT 0.3 MILLILITERS SUBCUTANEOUSLY EVERY 12 HOURS FOR TWO WEEKS completed 0.3 ML enoxaparin sodium 100 MG/ML Prefilled Syringe [facility] ([facility]) Doxycycline Monohydrate 100 MG Oral Caps ule doxycycline monohydrate 100 mg capsule TAKE ONE CAPSULE BY MOUTH TWICE DAILY FOR SEVEN DAYS doxycycline monohydrate 100 mg capsule TAKE ONE CAPSULE BY MOUTH TWICE DAILY FOR SEVEN DAYS completed doxycycline mo nohydrate 100 MG Oral Capsule [facility] ([facility]) Methylprednisolone 4 MG Oral Tablet methylprednisolone 4 mg tablet 1 tab daily methylprednisolone 4 mg tablet 1 tab daily completed methylprednisolone 4 MG Oral Tablet [facility] ([facility]) glimepiride 2 MG Oral Tablet glimepiride 2 mg tablet TAKE ONE TABLET BY MOUTH @8AM and TAKE ONE TABLET @8PM glimepiride 2 mg tablet TAKE ONE TABLET BY MOUTH @8AM and TAKE ONE TABLET @8PM complete d glimepiride 2 MG Oral Tablet [facility] ([facility]) Ciprofloxacin 250 MG Oral Tablet ciprofl oxacin 250 mg tablet TAKE ONE TABLET BY MOUTH TWICE DAILY FOR 3 DAYS ciprofloxacin 250 mg tablet TAKE ONE TAB LET BY MOUTH TWICE DAILY FOR 3 DAYS completed ciprofloxacin 250 MG Oral Tablet [facility] ([facility]) Acetaminophen 325 MG / Oxycodone Hydroch loride 5 MG Oral Tablet oxycodone- acetaminophen 5 mg-325 mg tablet oxycodone-acetaminophen 5 mg-325 mg tablet completed acetaminop hen 325 MG / oxycodone hydrochloride 5 MG Oral Tablet [facility] ([facility]) glimepiride 1 MG Oral Tablet glimepiride 1 mg tablet glimepiride 1 mg tablet completed glimepiride 1 MG Oral Tablet [facility] ([facility]) tramadol hydrochloride 50 MG Oral Tablet tramadol 50 mg tablet TAKE ONE TABLET BY MOUTH EVERY 6 HOURS NEEDED FOR PAIN MAX DAILY DOSE FOUR TABLETS tramadol 50 mg tablet TAKE ONE TABLET BY MOUTH EVERY 6 HOURS NEEDED FOR PAIN MAX DAILY DOSE FOUR TABLETS completed tramadol hydrochloride 50 MG Oral Tablet [facility] ([facility]) Oxycodone Hydrochloride 5 MG Oral Tablet oxycodone 5 mg tablet TAKE 1 TO 2 TABLETS BY MOUTH EVERY FOUR HOURS NEEDED FOR PAIN MAX DAILY DOSE 12 CAPSULES oxycodone 5 mg tablet TAKE 1 TO 2 TABLETS BY MOUTH EVERY FOUR HOURS NEEDED FOR PAIN MAX DAILY DOSE 12 CAPSULES co mpleted oxycodone hydrochloride 5 MG Oral Tablet [facility] ([facility]) Oxycodone Hydrochloride 5 MG Oral Tablet oxycodone 5 mg tablet TAKE 1 TO 2 TABLETS BY MOUTH EVERY FOUR HOURS NEEDED FOR PAIN MAX DAILY DOSE 12 CAPSULES oxycodone 5 mg tablet TAKE 1 TO 2 TABLETS BY MOUTH EVERY FOUR HOURS NEEDED FOR PAIN MAX DAILY DOSE 12 CAPSULES co mpleted oxycodone hydrochloride 5 MG Oral Tablet [facility] ([facility]) Methylprednisolone 2 MG Oral Tablet [Med rol] Medrol 2 mg tablet 1 tablet every other day Medrol 2 mg tablet 1 tablet every other day completed methylprednisolone 2 MG Oral Tablet [Medrol] [facility] ([facility]) tramadol hydrochloride 50 MG Oral Tablet tramadol 50 mg tablet TAKE ONE TABLET BY MOUTH EVERY 6 HOURS NEEDED FOR PAIN MAX DAILY DOSE FOUR TABLETS tramadol 50 mg tablet TAKE ONE TABLET BY MOUTH EVERY 6 HOURS NEEDED FOR PAIN MAX DAILY DOSE FOUR TABLETS completed tramadol hydrochloride 50 MG Oral Tablet [facility] ([facility]) Doxycycline Monohydrate 100 MG Oral Caps ule doxycycline monohydrate 100 mg capsule TAKE ONE CAPSULE BY MOUTH TWICE DAILY FOR SEVEN DAYS doxycycline monohydrate 100 mg capsule TAKE ONE CAPSULE BY MOUTH TWICE DAILY FOR SEVEN DAYS completed doxycycline mo nohydrate 100 MG Oral Capsule [facility] ([facility]) Methylprednisolone 2 MG Oral Tablet [Med rol] Medrol 2 mg tablet 1 tablet every other day Medrol 2 mg tablet 1 tablet every other day completed methylprednisolone 2 MG Oral Tablet [Medrol] [facility] ([facility]) Methylprednisolone 4 MG Oral Tablet methylprednisolone 4 mg tablet 1 tab daily methylprednisolone 4 mg tablet 1 tab daily completed methylprednisolone 4 MG Oral Tablet [facility] ([facility]) Acetaminophen 325 MG / Oxycodone Hydroch loride 5 MG Oral Tablet oxycodone- acetaminophen 5 mg-325 mg tablet oxycodone-acetaminophen 5 mg-325 mg tablet completed acetaminop hen 325 MG / oxycodone hydrochloride 5 MG Oral Tablet [facility] ([facility]) Methylprednisolone 2 MG Oral Tablet [Med rol] Medrol 2 mg tablet 1 tablet every other day Medrol 2 mg tablet 1 tablet every other day completed methylprednisolone 2 MG Oral Tablet [Medrol] [facility] ([facility]) tramadol hydrochloride 50 MG Oral Tablet tramadol 50 mg tablet TAKE ONE TABLET BY MOUTH EVERY 6 HOURS NEEDED FOR PAIN MAX DAILY DOSE FOUR TABLETS tramadol 50 mg tablet TAKE ONE TABLET BY MOUTH EVERY 6 HOURS NEEDED FOR PAIN MAX DAILY DOSE FOUR TABLETS completed tramadol hydrochloride 50 MG Oral Tablet [facility] ([facility]) Alprazolam 1 MG Oral Tablet alprazolam 1 mg tablet alprazolam 1 mg ta blet completed alprazolam 1 MG Oral Tablet [facility] ([facility]) Amoxicillin 500 MG / Clavulanate 125 MG Oral Tablet amoxicillin 500 mg-potassium clavulanate 125 mg tablet TAKE ONE TABLET BY MOUTH EVERY TWELVE HOURS amoxicillin 500 mg-potassium clavulanate 125 mg tablet TAKE ONE TABLET BY MOUTH EVERY TWELVE HOURS completed amoxicillin 500 MG / clavulanate 125 MG Oral Tablet [facility] ([facility]) Estradiol 0.1 MG/ML Vaginal Cream estradiol 0.01% (0.1 mg/gram) vaginal cream estradiol 0.01% (0.1 mg/gram) vaginal cream completed estradiol 0.1 MG/ML Vaginal Cream [facility] ([facility]) Prednisone 20 MG Oral Tablet prednisone 20 mg tablet TAKE ONE TABLET BY MOUTH ONCE DAILY FOR FIVE DAYS prednisone 20 mg tablet TAKE ONE TABLET BY MOUTH ONCE DAILY FOR FIVE DAYS completed pr ednisone 20 MG Oral Tablet [facility] ([facility]) Acetaminophen 325 MG / Oxycodone Hydroch loride 5 MG Oral Tablet oxycodone- acetaminophen 5 mg-325 mg tablet oxycodone-acetaminophen 5 mg-325 mg tablet completed acetaminop hen 325 MG / oxycodone hydrochloride 5 MG Oral Tablet [facility] ([facility]) 0.3 ML Enoxaparin sodium 100 MG/ML Prefi lled Syringe enoxaparin 30 mg/0.3 mL subcutaneous syringe INJECT 0.3 MILLILITERS SUBCUTANEOUSLY EVERY 12 HOURS FOR TWO WEEKS enoxaparin 30 mg/0.3 mL subcutaneous syr travis INJECT 0.3 MILLILITERS SUBCUTANEOUSLY EVERY 12 HOURS FOR TWO WEEKS completed 0.3 ML enoxaparin sodium 100 MG/ML Prefilled Syringe [facility] ([facility]) Amoxicillin 500 MG / Clavulanate 125 MG Oral Tablet amoxicillin 500 mg-potassium clavulanate 125 mg tablet TAKE ONE TABLET BY MOUTH EVERY TWELVE HOURS amoxicillin 500 mg-potassium clavulanate 125 mg tablet TAKE ONE TABLET BY MOUTH EVERY TWELVE HOURS completed amoxicillin 500 MG / clavulanate 125 MG Oral Tablet [facility] ([facility]) Methylprednisolone 2 MG Oral Tablet [Med rol] Medrol 2 mg tablet 1 tablet every other day Medrol 2 mg tablet 1 tablet every other day completed methylprednisolone 2 MG Oral Tablet [Medrol] [facility] ([facility]) Cyclobenzaprine hydrochloride 5 MG Oral Tablet cyclobenzaprine 5 mg tablet TAKE ONE TABLET BY MOUTH @8AM and TAKE ONE TABLET @12PM and TAKE ONE TABLET @8PM cyclobenzaprine 5 mg tablet TAKE ONE TABLET BY MOUTH @8AM and TAKE ONE TABLET @12PM and TAKE ONE TABLET @8PM complet ed cyclobenzaprine hydrochloride 5 MG Oral Tablet [facility] ([facility]) Acetaminophen 325 MG / Oxycodone Hydroch loride 5 MG Oral Tablet oxycodone- acetaminophen 5 mg-325 mg tablet oxycodone-acetaminophen 5 mg-325 mg tablet completed acetaminop hen 325 MG / oxycodone hydrochloride 5 MG Oral Tablet [facility] ([facility]) Ciprofloxacin 250 MG Oral Tablet ciprofl oxacin 250 mg tablet TAKE ONE TABLET BY MOUTH TWICE DAILY FOR 3 DAYS ciprofloxacin 250 mg tablet TAKE ONE TAB LET BY MOUTH TWICE DAILY FOR 3 DAYS completed ciprofloxacin 250 MG Oral Tablet [facility] ([facility]) Oxycodone Hydrochloride 5 MG Oral Tablet oxycodone 5 mg tablet TAKE 1 TO 2 TABLETS BY MOUTH EVERY FOUR HOURS NEEDED FOR PAIN MAX DAILY DOSE 12 CAPSULES oxycodone 5 mg tablet TAKE 1 TO 2 TABLETS BY MOUTH EVERY FOUR HOURS NEEDED FOR PAIN MAX DAILY DOSE 12 CAPSULES co mpleted oxycodone hydrochloride 5 MG Oral Tablet [facility] ([facility]) Ciprofloxacin 250 MG Oral Tablet ciprofl oxacin 250 mg tablet TAKE ONE TABLET BY MOUTH TWICE DAILY FOR 3 DAYS ciprofloxacin 250 mg tablet TAKE ONE TAB LET BY MOUTH TWICE DAILY FOR 3 DAYS completed ciprofloxacin 250 MG Oral Tablet [facility] ([facility]) tramadol hydrochloride 50 MG Oral Tablet tramadol 50 mg tablet TAKE ONE TABLET BY MOUTH EVERY 6 HOURS NEEDED FOR PAIN MAX DAILY DOSE FOUR TABLETS tramadol 50 mg tablet TAKE ONE TABLET BY MOUTH EVERY 6 HOURS NEEDED FOR PAIN MAX DAILY DOSE FOUR TABLETS completed tramadol hydrochloride 50 MG Oral Tablet [facility] ([facility]) Prednisone 20 MG Oral Tablet prednisone 20 mg tablet TAKE ONE TABLET BY MOUTH ONCE DAILY FOR FIVE DAYS prednisone 20 mg tablet TAKE ONE TABLET BY MOUTH ONCE DAILY FOR FIVE DAYS completed pr ednisone 20 MG Oral Tablet [facility] ([facility]) Methylprednisolone 4 MG Oral Tablet methylprednisolone 4 mg tablet 1 tab daily methylprednisolone 4 mg tablet 1 tab daily completed methylprednisolone 4 MG Oral Tablet [facility] ([facility]) cefdinir 300 MG Oral Capsule cefdinir 300 mg capsule cefdinir 30 0 mg capsule completed cefdinir 300 M G Oral Capsule [facility] ([facility]) Estradiol 0.1 MG/ML Vaginal Cream estradiol 0.01% (0.1 mg/gram) vaginal cream estradiol 0.01% (0.1 mg/gram) vaginal cream completed estradiol 0.1 MG/ML Vaginal Cream [facility] ([facility]) Methylprednisolone 4 MG Oral Tablet methylprednisolone 4 mg tablet 1 tab daily methylprednisolone 4 mg tablet 1 tab daily completed methylprednisolone 4 MG Oral Tablet [facility] ([facility]) tramadol hydrochloride 50 MG Oral Tablet tramadol 50 mg tablet TAKE ONE TABLET BY MOUTH EVERY 6 HOURS NEEDED FOR PAIN MAX DAILY DOSE FOUR TABLETS tramadol 50 mg tablet TAKE ONE TABLET BY MOUTH EVERY 6 HOURS NEEDED FOR PAIN MAX DAILY DOSE FOUR TABLETS completed tramadol hydrochloride 50 MG Oral Tablet [facility] ([facility]) glimepiride 2 MG Oral Tablet glimepiride 2 mg tablet TAKE ONE TABLET BY MOUTH @8AM and TAKE ONE TABLET @8PM glimepiride 2 mg tablet TAKE ONE TABLET BY MOUTH @8AM and TAKE ONE TABLET @8PM complete d glimepiride 2 MG Oral Tablet [facility] ([facility]) Doxycycline Monohydrate 100 MG Oral Caps ule doxycycline monohydrate 100 mg capsule TAKE ONE CAPSULE BY MOUTH TWICE DAILY FOR SEVEN DAYS doxycycline monohydrate 100 mg capsule TAKE ONE CAPSULE BY MOUTH TWICE DAILY FOR SEVEN DAYS completed doxycycline mo nohydrate 100 MG Oral Capsule [facility] ([facility]) Oxycodone Hydrochloride 5 MG Oral Tablet oxycodone 5 mg tablet TAKE 1 TO 2 TABLETS BY MOUTH EVERY FOUR HOURS NEEDED FOR PAIN MAX DAILY DOSE 12 CAPSULES oxycodone 5 mg tablet TAKE 1 TO 2 TABLETS BY MOUTH EVERY FOUR HOURS NEEDED FOR PAIN MAX DAILY DOSE 12 CAPSULES co mpleted oxycodone hydrochloride 5 MG Oral Tablet [facility] ([facility]) Oxycodone Hydrochloride 5 MG Oral Tablet oxycodone 5 mg tablet TAKE 1 TO 2 TABLETS BY MOUTH EVERY FOUR HOURS NEEDED FOR PAIN MAX DAILY DOSE 12 CAPSULES oxycodone 5 mg tablet TAKE 1 TO 2 TABLETS BY MOUTH EVERY FOUR HOURS NEEDED FOR PAIN MAX DAILY DOSE 12 CAPSULES co mpleted oxycodone hydrochloride 5 MG Oral Tablet [facility] ([facility]) Methylprednisolone 2 MG Oral Tablet [Med rol] Medrol 2 mg tablet 1 tablet every other day Medrol 2 mg tablet 1 tablet every other day completed methylprednisolone 2 MG Oral Tablet [Medrol] [facility] ([facility]) Oxycodone Hydrochloride 5 MG Oral Tablet oxycodone 5 mg tablet TAKE 1 TO 2 TABLETS BY MOUTH EVERY FOUR HOURS NEEDED FOR PAIN MAX DAILY DOSE 12 CAPSULES oxycodone 5 mg tablet TAKE 1 TO 2 TABLETS BY MOUTH EVERY FOUR HOURS NEEDED FOR PAIN MAX DAILY DOSE 12 CAPSULES co mpleted oxycodone hydrochloride 5 MG Oral Tablet [facility] ([facility]) Methylprednisolone 4 MG Oral Tablet methylprednisolone 4 mg tablet 1 tab daily methylprednisolone 4 mg tablet 1 tab daily completed methylprednisolone 4 MG Oral Tablet [facility] ([facility]) Doxycycline Monohydrate 100 MG Oral Caps ule doxycycline monohydrate 100 mg capsule TAKE ONE CAPSULE BY MOUTH TWICE DAILY FOR SEVEN DAYS doxycycline monohydrate 100 mg capsule TAKE ONE CAPSULE BY MOUTH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 [id number] [id number] ANSI-Medicaid [id number] ANSI-Medicaid [id number] Problems, Conditions, and Diagnoses Code Display Name Description Problem Type Effective Dates Data Source(s) N95.2 Postmenopausal atrophic vaginitis N95.2 - Postmenopausal atrophic vaginitis Diagnosis 08/11/2020 11:00:00 PM EDT [facility] R30.0 Dysuria R30.0 - Dysuria Diagnosis 07/14/2020 11:00:00 PM EDT [facility] 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, 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 N31.0 - Uninhibited neuropathic bladder, not elsewhere classified Diagnosis 04/07/2020 09:05:00 PM EST [facility] Z87.440 Personal history of urinary (tract) infe ctions Z87.440 - Personal history of urinary (tract) infections Diagnosis 04/07/2020 09:05:00 PM EST [facility] R35.0 Frequency of micturition R35.0 - Frequency of micturit ion Diagnosis 01/10/2020 11:00:00 PM EST [facility] R31.0 Gross hematuria R31.0 - Gross hematuria Diagnosis 1 11:00:00 PM EDT [facility] R04.0 [id number] Recurrent epistaxis Problem 11/14/2020 12:00 :00 AM EDT eCW1 ([facility]) D50.9 Iron deficiency anemia Anemia, iron deficiency Problem 07/04/2020 12:00:00 AM EDT eCW1 ([facility]) K59.00 [id number] Constipation, unspecified constipation ty pe Problem 05/26/2020 12:00:00 AM EDT eCW1 ([facility]) F41.9 [id number] Anxiety Problem 05/12/2020 12:00:00 AM ES T eCW1 ([facility]) Surgeries/Procedures Procedure Description Date Indications Data Source(s) ECG ROUTINE ECG W/LEAST 12 LDS W/I&R 11/14/2020 12:00: 00 AM EDT eCW1 ([facility]) ARTHROCENTESIS ASPIR&/INJECTION MAJOR JT/BURSA 021 12:00:00 AM EDT [facility] ([facility]) RADIOLOGIC EXAMINATION KNEE 3 VIEWS 10/23/2020 12:00:0 0 AM EDT [facility] ([facility]) RADIOLOGIC EXAMINATION KNEE 3 VIEWS 10/23/2020 12:00:0 0 AM EDT [facility] ([facility]) OFFICE OUTPATIENT VISIT 25 MINUTES 10/23/2020 12:00:00 AM EDT [facility] ([facility]) OFFICE OUTPATIENT NEW 45 MINUTES 10/15/2020 12:00:00 A M EDT [facility] ([facility] ) Spirometry 10/08/2020 12:00:00 AM EDT M EDENT ([facility]) OFFICE OUTPATIENT VISIT 25 MINUTES 10/08/2020 12:00:00 AM EDT [facility] ([facility]) US RETROPERITONEAL REAL TIME W/IMAGE LIMITED 12:00:00 AM EDT [facility] ([facility]) US RETROPERITONEAL REAL TIME W/IMAGE LIMITED 12:00:00 AM EDT [facility] ([facility]) ARTHROCENTESIS ASPIR&/INJECTION MAJOR JT/BURSA 021 12:00:00 AM EDT [facility] ([facility]) Cystourethroscopy, W/[employer] Cryosurgery Or Laser Garza rg 07/23/2020 12:00:00 AM EDT [facility] ([facility]) Cystourethroscopy,/W Injects For Chemodenervation Of The Leonel dder 07/23/2020 12:00:00 AM EDT [facility] ([facility]) INSJ NON-NDWELLG BLADDER CATHETER 07/14/2020 12:00:00 AM EDT [facility] ([facility]) INSJ NON-NDWELLG BLADDER CATHETER 04/07/2020 12:00:00 AM EST [facility] ([facility]) INSJ NON-NDWELLG BLADDER CATHETER 04/07/2020 12:00:00 AM EST [facility] ([facility]) ARTHROCENTESIS ASPIR&/INJECTION MAJOR JT/BURSA 021 12:00:00 AM EST [facility] ([facility]) INSJ NON-NDWELLG BLADDER CATHETER 01/10/2020 12:00:00 AM EST [facility] ([facility]) BLDR IRRIGATION SMPL LAVAGE&/INSTLJ 12/11/2019 12:00:0 0 AM EDT [facility] ([facility]) CYSTOURETHROSCOPY 12/11/2019 12:00:00 AM EDT [facility] ([facility]) Cystourethroscopy, W/[employer] Cryosurgery Or Laser Garza rg 11/27/2019 12:00:00 AM EDT [facility] ([facility]) Cystourethroscopy,/W Injects For Chemodenervation Of The Leonel dder 11/27/2019 12:00:00 AM EDT [facility] ([facility]) Results ID Date Data Source [id number] 12/29/2020 04:17:00 PM EDT [facility] Name Value Range Interpretation Code Description Data Tashia rce(s) Supporting Document(s) SARS-CoV-2 (COVID 19) NEGATIVE - SARS-CoV-2 (COVID19) [facility] This lab was ordered by [facility] a nd reported by [facility]. ID Date Data Source [id number] 12/27/2020 09:35:00 AM EDT [facility] Name Value Range Interpretation Code Description Data Tashia rce(s) Supporting Document(s) SARS-CoV-2 (COVID-19) RNA [Presence] in Respiratory specimen by PHANI with probe detection Not Detected [facility] This lab was ordered by [facility] and reported by [facility] [facility]. ID Date Data Source [id number] 12/24/2020 12:00:00 AM EDT [facility] Name Value Range Interpretation Code Description Data Tashia rce(s) Supporting Document(s) SARS-CoV2 Rapid Antigen Negative [facility] This lab was ordered by [facility] and reported by [facility]. ID Date Data Source [id number] 11/26/2020 11:30:00 AM EDT [facility] Name Value Range Interpretation Code Description Data Tashia rce(s) Supporting Document(s) SARS-CoV-2 (COVID-19) RNA [Presence] in Respiratory specimen by PHANI with probe detection Not Detected [facility] This lab was ordered by [facility] and reported by [facility]. ID Date Data Source NT-PRO BNP 11/14/2020 12:00:00 AM EDT eCW1 ([facility]) Name Value Range Interpretation Code Description Data Tashia rce(s) Supporting Document(s) 57 <125 NT-PRO BNP eCW1 (Counts include 234 beds at the [facility]) ID Date Data Source CBC with Differential 11/14/2020 12:00:00 AM EDT eCW1 ([facility]) Name Value Range Interpretation Code Description Data Tashia rce(s) Supporting Document(s) 8.1 4.0-10.0 WHITE BLOOD COUNT eCW1 ([facility]) 3.63 4.00-5.40 RED BLOOD COUNT eCW1 ([facility]) 9.5 12.0-15.5 HEMOGLOBIN eCW1 (Counts include 234 beds at the [facility]) 86.2 80.0-96.0 MEAN CORPUSCULAR VOLUME e CW1 ([facility]) 31.3 36.0-47.0 HEMATOCRIT eCW1 (Counts include 234 beds at the [facility]) 30.4 32.0-36.5 MEAN CORPUSCULAR HGB CONC eCW1 ([facility]) 26.2 27.0-33.0 MEAN CORPUSCULAR HEMOGLOB IN eCW1 ([facility]) 15.8 11.5-14.5 RED CELL DISTRIBUTION WID TH eCW1 ([facility]) 342 150-450 PLATELET COUNT, AUTOMATED eCW1 ([facility]) 51.9 36.0-66.0 NEUTROPHILS % eCW1 ([facility]) 5.0 2.0-8.0 MONO % eCW1 ([facility]) 39.4 24.0-44.0 LYMPH % eCW1 ([facility]) 0.9 0.0-1.0 BASO % eCW1 ([facility]) 2.4 0.0-3.0 EOS % eCW1 ([facility]) 4.2 1.5-8.5 NEUTROPHILS # eCW1 ([facility]) 3.2 1.5-5.0 LYMPH # eCW1 ([facility]) 0.2 0.0-0.5 EOS # eCW1 ([facility]) 0.4 0.0-0.8 MONO # eCW1 ([facility]) 0.1 0.0-0.2 BASO # eCW1 ([facility]) ID Date Data Source Comprehensive Metabolic Profile (CMP) 11/14/2020 12:00:00 AM EDT eCW1 ([facility]) Name Value Range Interpretation Code Description Data Tashia rce(s) Supporting Document(s) 64 70-100 GLUCOSE, FASTING eCW1 ([facility]) 15 7-18 BLOOD UREA NITROGEN eCW1 ([facility]) 0.72 0.55-1.30 CREATININE FOR GFR eCW1 ([facility]) > 60.0 >45 GLOMERULAR FILTRATION RATE eCW 1 ([facility]) 137 136-145 SODIUM LEVEL eCW1 ([facility]) 102 98-107 CHLORIDE LEVEL eCW1 ([facility]) 4.3 3.5-5.1 POTASSIUM SERUM eCW1 ([facility]) 28 21-32 CARBON DIOXIDE LEVEL eCW1 ([facility]) 8.8 8.8-10.2 CALCIUM LEVEL eCW1 ([facility]) 21 7-37 AST/SGOT eCW1 ([facility]) 30 12-78 ALT/SGPT eCW1 ([facility]) 95 45-117 ALKALINE PHOSPHATASE eCW1 ([facility]) 0.9 0.2-1.0 BILIRUBIN,TOTAL eCW1 ([facility]) 6.8 6.4-8.2 TOTAL PROTEIN eCW1 ([facility]) 3.3 3.2-5.2 ALBUMIN eCW1 ([facility]) 0.9 1.2-2.2 ALBUMIN/GLOBULIN RATIO eCW1 ([facility]) ID Date Data Source FERRITIN 11/14/2020 12:00:00 AM EDT eCW1 ([facility]) Name Value Range Interpretation Code Description Data Tashia rce(s) Supporting Document(s) 8 8-252 FERRITIN eCW1 ([facility]) ID Date Data Source FREE T4 & TSH PANEL 11/14/2020 12:00:00 AM EDT eCW1 ([facility]) Name Value Range Interpretation Code Description Data Tashia rce(s) Supporting Document(s) 1.320 0.358-3.740 THYROID STIMULATING HORM ONE eCW1 ([facility]) 1.10 0.76-1.46 FREE T4 eCW1 ([facility]) ID Date Data Source MAGNESIUM LEVEL 11/14/2020 12:00:00 AM EDT eCW1 ([facility]) Name Value Range Interpretation Code Description Data Tashia rce(s) Supporting Document(s) 2.0 1.8-2.4 MAGNESIUM LEVEL eCW1 ([facility]) ID Date Data Source PT & APTT 11/14/2020 12:00:00 AM EDT eCW1 ([facility]) Name Value Range Interpretation Code Description Data Tashia rce(s) Supporting Document(s) 12.5 12.7-14.5 PROTHROMBIN TIME eCW1 ([facility]) 0.89 INR eCW1 ([facility]) 27.5 25.9-37.0 PARTIAL THROMBOPLASTIN TI ME eCW1 ([facility]) ID Date Data Source UA URINALYSIS 11/14/2020 12:00:00 AM EDT eCW1 ([facility]) Name Value Range Interpretation Code Description Data Tashia rce(s) Supporting Document(s) Laboratory studies (set) UA URINALYS IS eCW1 ([facility]) ID Date Data Source URINE CULTURE 11/14/2020 12:00:00 AM EDT eCW1 ([facility]) Name Value Range Interpretation Code Description Data Tashia rce(s) Supporting Document(s) Laboratory studies (set) URINE CULTU RE eCW1 ([facility]) ID Date Data Source [id number] 10/21/2020 04:25:00 PM EDT [facility] ([facility], ) Name Value Range Interpretation Code Description Data Tashia rce(s) Supporting Document(s) White Blood Count 7.7 10 4.0-10.0 Normal (applies to non-numeri c results) [facility] ([facility]) Red Blood Count 4.17 10 4.00-5.40 Normal (applies to non-numeric results) [facility] ([facility]) Hemoglobin 11.0 g/dL 12.0-15.5 Below low normal [facility] ( [facility]) Hematocrit 35.5 % 36.0-47.0 Below low normal [facility] ( [facility]) Mean Corpuscular Hemoglobin 26.4 pg 27.0-33.0 Below low normal [facility] ([facility]) Mean Corpuscular Volume 85.1 fl 80.0-96.0 Normal ( applies to non-numeric results) [facility] ([facility]) Mean Corpuscular HGB Conc 31.0 g/dL 32.0-36.5 Below low normal [facility] ([facility]) Red Cell Distribution Width 15.9 % 11.5-14.5 Above high normal [facility] ([facility]) Platelet Count, Automated 346 10 150-450 Normal (applies to non-numeric results) [facility] ([facility]) Nucleated Red Blood Cell % 0.0 % 0-0 Normal (applies to n on-numeric results) [facility] ([facility]) 11/11/20 (TueNov 11) 09:16 AM MICHAEL ABERNATHY Continues to have anemia. Will further evaluate. ID Date Data Source [id number] 10/21/2020 04:25:00 PM EDT [facility] ([facility]) Name Value Range Interpretation Code Description Data Tashia rce(s) Supporting Document(s) Iron (Fe) 35 ug/dL 50-170 Below low normal [facility] ( [facility]) Total Iron Binding Capacity 487 ug/dL 250-450 Above high normal [facility] ([facility]) Percent Saturation 7.2 % 13.2-45.0 Below low normal [facility] ([facility]) 11/11/20 (TueNov 11) 09:16 AM MICHAEL KEENEMAXINESILVINA Iron deficiency noted. Continue to take iron supplement as directed. Will further evaluate. ID Date Data Source [id number] 10/21/2020 04:25:00 PM EDT [facility] ([facility]) Name Value Range Interpretation Code Description Data Tashia rce(s) Supporting Document(s) Urea nitrogen [Mass/volume] in Serum or Plasma 14 mg/dL 7 -18 Normal (applies to non-numeric results) [facility] ([facility]) ID Date Data Source [id number] 10/21/2020 04:25:00 PM EDT [facility] ([facility]) Name Value Range Interpretation Code Description Data Tashia rce(s) Supporting Document(s) Creatinine For GFR 0.72 mg/dL 0.55-1.30 Normal (applies to non -numeric results) [facility] ([facility]) Glomerular Filtration Rate Laboratory test result Normal (applies to non- numeric results) [facility] ([facility]) <content>Units are mL/min/1.73 m2</content>
<content></content>
<content>Chronic Kidney Disease Staging per NK[facility]:</content>
<content></content>
<content>Stage I & II GFR >=60 Normal to Mildly Decreased</content>
<content>Stage III GFR 30- 59 Moderately Decreased</content>
<content>Stage IV GFR 15-29 Severely Decreased</content>
<content>Stage V GFR <15 Very Little GFR Left</content>
<content>ESRD GFR <15 on [employer]</content>
<content></content> ID Date Data Source [id number] 10/20/2020 12:00:00 AM EDT [facility] Name Value Range Interpretation Code Description Data Tashia rce(s) Supporting Document(s) SARS-CoV-2 NEGATIVE [facility] This lab was ordered by [facility]-COVID19 and reported by [facility]. ID Date Data Source [id number] 10/20/2020 12:00:00 AM EDT [facility] ([facility]) Name Value Range Interpretation Code Description Data Tashia rce(s) Supporting Document(s) ID Date Data Source [id number] 10/20/2020 12:00:00 AM EDT [facility] ([facility]) Name Value Range Interpretation Code Description Data Tashia rce(s) Supporting Document(s) SARS-CoV-2 (COVID-19) RNA [Presence] in Respiratory specimen by PHANI with probe detection negative negative Sars-cov-2 [facility] ([facility]) ID Date Data Source [id number] 10/08/2020 09:54:00 AM EDT [facility] ([facility], ) Name Value Range Interpretation Code Description Data Tashia rce(s) Supporting Document(s) PDFReport Laboratory test result [facility] ([facility], ) FVC-Pred 3.44 L [facility] ([facility]) FVC-%Pred-Pre 69 L [facility] ([facility]) FVC-Pre 2.38 L [facility] ([facility]) Fev1-Pred 2.64 L [facility] ([facility]) FVC-LLN 2.70 L [facility] ([facility]) Fev1-Pre 1.77 L [facility] ([facility], ) Fev1-%Pred-Pre 67 L [facility] ([facility], ) Fev1-LLN 2.01 L [facility] ([facility], ) Fev6-Pre 2.35 L [facility] ([facility], ) Fev6-Pred 3.31 L [facility] ([facility]) Fev6-LLN 2.59 L [facility] ([facility]) Fev6-%Pred-Pre 71 L [facility] ([facility], ) Lhb4ida-Cufd 77 % [facility] ([facility]) Pwi3aaf-Sct 74 % [facility] ([facility]) Cas5mcc-WHA 67 % [facility] ([facility]) Mmw9ryr-%Pred-Pre 96 % [facility] ([facility]) Wjs1xes-%Pred-Pre 102 % [facility] ([facility]) Lkx3oei-Zer 99 % [facility] ([facility]) Yst0zuz-Aguo 96 % [facility] ([facility]) FEFMax-Pre 5.14 L/E/sec [facility] ([facility]) FEFMax-Pred 6.37 L/E/sec [facility] ([facility], ) FEFMax-%Pred-Pre 80 L/E/sec [facility] ([facility]) FEFMax-LLN 4.55 L/E/sec [facility] ([facility]) Qew6301-%Pred-Pre 56 L/E/sec [facility] ([facility]) Ppm2195-Kkbb 2.29 L/E/sec [facility] ([facility]) Pzz7867-Irn 1.30 L/E/sec [facility] ([facility], ) ExpTime-Pre 7.83 sec [facility] ([facility]) Vrw1578-FCM 0.97 L/E/sec [facility] ([facility]) Oax5uqe4-Vjgt 80 % [facility] ([facility], ) Eco5ele3-Tvj 75 % [facility] ([facility]) Opc4yeh7-%Pred-Pre 93 % [facility] ([facility], ) Gdp6ocd3-ROB 71 % [facility] ([facility], ) ID Date Data Source [id number] 08/11/2020 04:02:00 PM EDT [facility] ([facility]) Name Value Range Interpretation Code Description Data Tashia rce(s) Supporting Document(s) Linda sp rRNA [Presence] in Vaginal fluid by DNA probe Lab oratory test result Abnormal (applies to non-numeric results) [facility] ([facility]) Gardnerella By Dna Probe Laboratory test result [facility] ([facility]) Trichomonas vaginalis rRNA [Presence] in Genital speci men by DNA probe Laboratory test result [facility] ([facility]) TESTING PERFORMED BY NUCLEIC ACID HYBRID IZATION ID Date Data Source [id number] 08/11/2020 04:02:00 PM EDT [facility] Name Value Range Interpretation Code Description Data Tashia rce(s) Supporting Document(s) Bacteria identified in Vaginal fluid by Aerobe culture Laborator y test result [facility] ([facility]) ID Date Data Source [id number] 08/12/2020 12:21:00 PM EDT [facility] Name Value Range Interpretation Code Description Data Tashia rce(s) Supporting Document(s) LINDA BY DNA PROBE POSITIVE NEGATIVE [facility] GARDNERELLA BY DNA PROBE NEGATIVE NEGATIVE [facility] TRICHOMONAS BY DNA PROBE NEGATIVE NEGATIVE [facility] TESTING PERFORMED BY NUCLEIC ACID HYBRI DIZATION ID Date Data Source [id number] 08/11/2020 03:39:00 PM EDT [facility] ([facility]) Name Value Range Interpretation Code Description Data Tashia rce(s) Supporting Document(s) Protein [Presence] in Urine by Test strip 30 mg/dL [facility] ([facility]) Glucose [Presence] in Urine 100 mg/dL [facility] ([facility]) Ua Nitrite Laboratory test result [facility] ([facility]) Ua Leuko Laboratory test result [facility] ([facility]) Color of Urine Laboratory test result [facility] ([facility]) Blood [Presence] in Urine by Visual Laboratory test result [facility] ([facility]) Ketones [Presence] in Urine by Test strip Laboratory test result [facility] ([facility]) Clarity of Urine Laboratory test result [facility] ([facility] [place]) pH of Urine by Test strip 7.0 5.0-7.5 [facility] ([facility] [place]) Ua Specific [place] 1.020 1.003-1.030 [facility] ([facility]) Urobilinogen [Mass/volume] in Urine by Test strip 0.2 E.U./dL 0.0-1.0 [facility] ([facility]) Bilirubin.total [Presence] in Urine by Test strip Laboratory test res ult [facility] ([facility]) ID Date Data Source [id number] 08/11/2020 12:00:00 AM EDT [facility] ([facility]) Name Value Range Interpretation Code Description Data Tashia rce(s) Supporting Document(s) ID Date Data Source [id number] 08/11/2020 12:00:00 AM EDT [facility] Name Value Range Interpretation Code Description Data Tashia rce(s) Supporting Document(s) SARS-CoV-2 NEGATIVE [facility] This lab was ordered by [facility]-COVID19 and reported by [facility]. ID Date Data Source [id number] 08/11/2020 12:00:00 AM EDT [facility] ([facility]) Name Value Range Interpretation Code Description Data Tashia rce(s) Supporting Document(s) ID Date Data Source [id number] 08/11/2020 12:00:00 AM EDT [facility] ([facility]) Name Value Range Interpretation Code Description Data Tashia rce(s) Supporting Document(s) ID Date Data Source [id number] 07/23/2020 09:44:00 AM EDT [facility] ([facility]) Name Value Range Interpretation Code Description Data Tashia rce(s) Supporting Document(s) Glucose [Presence] in Urine Laboratory test result [facility] ([facility] [place]) Ua Nitrite Laboratory test result [facility] ([facility]) Protein [Presence] in Urine by Test strip Laboratory test result [facility] ([facility]) Ua Leuko Laboratory test result [facility] ([facility]) Blood [Presence] in Urine by Visual Laboratory test result [facility] ([facility]) Ketones [Presence] in Urine by Test strip Laboratory test result [facility] ([facility]) Color of Urine Laboratory test result [facility] ([facility]) Ua Specific [place] 1.025 1.003-1.030 [facility] NT ([facility]) Clarity of Urine Laboratory test result [facility] ([facility]) pH of Urine by Test strip 7.0 5.0-7.5 [facility] ([facility]) Bilirubin.total [Presence] in Urine by Test strip Laboratory test res ult [facility] ([facility]) Urobilinogen [Mass/volume] in Urine by Test strip 0.2 E.U./dL 0.0-1.0 [facility] ([facility]) ID Date Data Source [id number] 07/14/2020 03:26:00 PM EDT [facility] ([facility]) Name Value Range Interpretation Code Description Data Tashia rce(s) Supporting Document(s) Bacteria identified in Urine by Culture Laboratory test result [facility] ([facility]) <content> --------</content>
<content>Run: 07/16/20 0832 INTERFACED REPORT</content>
<content> </content>
<content>Name: Trini Jiang Age/Sex: 65/F Location: [facility]</content>
<content>Acct: [id number] Unit: [id number] Status: REG REF Room/Bed:</content>
<content>Re07/14/20 Disch: Junior Dr: Monica Bal MD</content>
<content> </content>
<content></content>
<content>Specimen #: [id number] Ordered : 07/14/2012/25/1809</content>
<content>Collected : 07/14/2012/26/1515 By: [...] REPORT </content>
<content></content> ID Date Data Source [id number] 07/16/2020 08:32:00 AM ARMANDO [facility] Run: 07/16/20 0832 INTERFACED REPORT Name: Trini Jiang Age/Sex: 65/F Location: [facility] Acct: [id number] Unit: [id number] Status: REG REF Room/Bed: Re07/14/20 Disch: Att Dr: Monica Bal MD Specimen #: [id number] Ordered : 07/14/2012/25/1809 Collected : 07/14/2012/26/1515 By: [...] Code Description Data Tashia e(s) Supporting Document(s) ID Date Data Source [id number] 07/14/2020 03:15:00 PM EDT [facility] ([facility]) Name Value Range Interpretation Code Description Data Tashia rce(s) Supporting Document(s) Glucose [Presence] in Urine Laboratory test result [facility] ([facility]) Ua Nitrite Laboratory test result [facility] ([facility]) Protein [Presence] in Urine by Test strip 30 mg/dL [facility] ([facility]) Blood [Presence] in Urine by Visual Laboratory test result [facility] ([facility]) Ua Leuko Laboratory test result [facility] ([facility]) Clarity of Urine Laboratory test result [facility] ([facility]) Ketones [Presence] in Urine by Test strip Laboratory test result [facility] ([facility] [place]) Color of Urine Laboratory test result [facility] ([facility]) pH of Urine by Test strip 5.0 5.0-7.5 [facility] ([facility]) Ua Specific [place] Laboratory test result 1.003-1.030 [facility] ([facility]) Bilirubin.total [Presence] in Urine by Test strip Laboratory test res ult [facility] ([facility]) Urobilinogen [Mass/volume] in Urine by Test strip 0.2 E.U./dL 0.0-1.0 [facility] ([facility]) ID Date Data Source [id number] 07/14/2020 03:07:00 PM EDT [facility] ([facility]) Name Value Range Interpretation Code Description Data Tashia rce(s) Supporting Document(s) Glucose [Presence] in Urine Laboratory test result [facility] ([facility]) Protein [Presence] in Urine by Test strip 30 mg/dL [facility] ([facility]) Ua Nitrite Laboratory test result [facility] ([facility]) Ua Leuko Laboratory test result [facility] ([facility]) Blood [Presence] in Urine by Visual Laboratory test result [facility] ([facility]) Color of Urine Laboratory test result [facility] ([facility]) Clarity of Urine Laboratory test result [facility] ([facility]) Ketones [Presence] in Urine by Test strip Laboratory test result [facility] ([facility]) pH of Urine by Test strip 5.0 5.0-7.5 [facility] ([facility]) Ua Specific [place] Laboratory test result 1.003-1.030 [facility] ([facility]) Bilirubin.total [Presence] in Urine by Test strip Laboratory test res ult [facility] ([facility]) Urobilinogen [Mass/volume] in Urine by Test strip 0.2 E.U./dL 0.0-1.0 [facility] ([facility]) ID Date Data Source [id number] 07/04/2020 12:00:00 AM EDT eCW1 ([facility]) Name Value Range Interpretation Code Description Data Tashia rce(s) Supporting Document(s) Hemoglobin A1c/Hemoglobin.total in Blood 6.6 HEMOGLOBIN A1c eCW1 ([facility]) ID Date Data Source LIPID PANEL (CARDIAC RISK) 07/04/2020 12:00:00 AM EDT eCW1 ( [facility]) Name Value Range Interpretation Code Description Data Tashia rce(s) Supporting Document(s) Cholesterol [Moles/volume] in Serum or Plasma 156 <200 CHOLESTEROL LEVEL eCW1 ([facility]) Triglyceride [Mass/volume] in Serum or Plasma by calculation 92 <150 TRIGLYCERIDES LEVEL eCW1 ([facility]) Cholesterol in LDL [Mass/volume] in Serum or Plasma by calculation 65 <100 LDL CHOLESTEROL eCW1 ([facility]) Cholesterol in HDL [Moles/volume] in Serum or Plasma 73 >40 HDL CHOLESTEROL eCW1 ([facility]) 83 NON-HDL-C eCW1 ([facility]) 2.136 <5 CHOLESTEROL RISK RATIO eCW1 ([facility]) ID Date Data Source IRON (FE) 05/26/2020 12:00:00 AM EDT eCW1 ([facility]) Name Value Range Interpretation Code Description Data Tashia rce(s) Supporting Document(s) 46 50-170 eCW1 ([facility]) ID Date Data Source CBC with Auto Differential 05/26/2020 12:00:00 AM EDT eCW1 ( [facility]) Name Value Range Interpretation Code Description Data Tashia rce(s) Supporting Document(s) 33.8 36.0-47.0 eCW1 ([facility]) 10.8 12.0-15.5 eCW1 ([facility]) 7.7 4.0-10.0 eCW1 ([facility]) 89.9 80.0-96.0 eCW1 ([facility]) 3.76 4.00-5.40 eCW1 ([facility]) 14.1 11.5-14.5 eCW1 ([facility]) 32.0 32.0-36.5 eCW1 ([facility]) 28.7 27.0-33.0 eCW1 ([facility]) 343 150-450 eCW1 ([facility]) 4.7 0.0-3.0 eCW1 ([facility]) 32.1 24.0-44.0 eCW1 ([facility]) 6.1 2.0-8.0 eCW1 ([facility]) 55.9 36.0-66.0 eCW1 ([facility]) 0.0 0-0 eCW1 ([facility]) 4.3 1.5-8.5 eCW1 ([facility]) 0.4 0-3.0 eCW1 ([facility]) 0.8 0.0-1.0 eCW1 ([facility]) 0.1 0.0-0.2 eCW1 ([facility]) 2.5 1.5-5.0 eCW1 ([facility]) 0.5 0.0-0.8 eCW1 ([facility]) 0.4 0.0-0.5 eCW1 ([facility]) ID Date Data Source [id number] 05/12/2020 12:00:00 AM EST eCW1 ([facility]) Name Value Range Interpretation Code Description Data Tashia rce(s) Supporting Document(s) Microalbumin/Creatinine [Ratio] in Urine 8.9 0.0-30.0 eCW1 ([facility]) Albumin/Creatinine [Mass Ratio] in Urine 9.8 eCW1 ([facility]) Microalbumin/Creatinine [Mass Ratio] in Urine 109.0 eCW1 ([facility]) ID Date Data Source [id number] 04/29/2020 06:29:00 AM EST [facility] Name Value Range Interpretation Code Description Data Tashia rce(s) Supporting Document(s) SARS-CoV-2 (COVID 19) NEGATIVE - SARS-CoV-2 (COVID19) [facility] This lab was ordered by [facility] a nd reported by [facility]. ID Date Data Source [id number] 04/09/2020 10:42:00 AM EST [facility] Run: 04/09/20 1043 INTERFACED REPORT Name: ApolinarTrini Age/Sex: 64/F Location: [facility] Acct: [id number] Unit: [id number] Status: REG REF Room/Bed: Re04/07/20 Disch: Junior Dr: Monica Bal MD Specimen #: [id number] Ordered : 04/07/2003/27/1856 Collected : 04/07/2003/27/1329 By: [...] Name Value Range Interpretation Code Description Data [place] [facility] Supporting Document(s) ID Date Data Source [id number] 04/07/2020 01:30:00 PM EST EVELYNE ([facility] [facility] [place]) Name Value Range Interpretation Code Description Data Tashia e(s) Supporting Document(s) Glucose [Presence] in Urine Laboratory test result MEDENT ([facility] [facility]) Ua Nitrite Laboratory test result ME DENT ([facility] [employer] [facility]) Protein [Presence] in Urine by Test strip Laboratory test result MEDENT ([facility] [employer] [facility]) Ua Leuko Laboratory test result ME DENT ([facility] [employer] [facility]) Blood [Presence] in Urine by Visual Laboratory test result MEDENT ([facility] [employer] [facility]) Color of Urine Laboratory test result MEDENT ([facility] [employer] [facility]) Ketones [Presence] in Urine by Test strip Laboratory test result MEDENT ([facility] [employer] [facility]) Clarity of Urine Laboratory test result MEDENT ([facility] [employer] [facility]) pH of Urine by Test strip 5.0 5.0-7.5 MEDENT ([facility] [employer] [facility]) Ua Specific [place] 1.025 1.003-1.030 MEDE NT ([facility] [employer] [facility]) Bilirubin.total [Presence] in Urine by Test strip Laboratory test res ult MEDENT ([facility] [employer] [facility]) Urobilinogen [Mass/volume] in Urine by Test strip 0.2 E.U./dL 0.0-1.0 MEDENT ([facility] [employer] [facility]) ID Date Data Source [id number] 04/07/2020 01:30:00 PM EST MEDENT ([facility] [employer] [facility]) Name Value Range Interpretation Code Description Data Tashia rce(s) Supporting Document(s) Bacteria identified in Urine by Culture Laboratory test result MEDENT ([employer] [employer] [facility]) <content>Run: 04/09/20 1043 INTERFACED REPORT</content>
<content> ntent>Name: Trini Jiang Age/Sex: 64/F Location: [facility]</content>
<content>Acct: [id number] Unit: [id number] Status: REG REF Room/Bed:</content>
<content>Re04/07/20 Disch: Att Dr: Monica Bal MD</content>
<content> </content>
<content></content>
<content>Specimen #: [id number] Ordered : 04/07/2003/27/1856</content>
<content>Collected : 04/07/2003/27/1329 By: EMERSON Received: 04/07/2003/27/1856 By: CYNTHIA</content>
<content>Source: URINE CATH [...] REPORT </content>
<content></content> ID Date Data Source [id number] 04/07/2020 01:23:00 PM EST MEDREMY ([facility] [employer] [facility] [employer] [place]) Name Value Range Interpretation Code Description Data Tashia rce(s) Supporting Document(s) Glucose [Presence] in Urine Laboratory test result MEDENT ([facility] [employer]) Protein [Presence] in Urine by Test strip Laboratory test result MEDENT ([facility] [employer] [facility] [place]) Ua Leuko Laboratory test result ME DENT ([facility] [employer] [facility]) Ua Nitrite Laboratory test result ME DENT ([facility] [employer]) Color of Urine Laboratory test result MEDENT ([facility] [employer] [facility] [employer]) Blood [Presence] in Urine by Visual Laboratory test result MEDENT ([facility] [employer]) Ketones [Presence] in Urine by Test strip Laboratory test result MEDENT ([facility] [employer] [place]) Clarity of Urine Laboratory test result MEDENT ([facility] [employer] [place]) Ua Specific [place] Laboratory test result 1.003-1.030 MEDENT ([facility] [employer] [facility]) pH of Urine by Test strip 5.0 5.0-7.5 MEDENT ([facility] [employer] [place]) Urobilinogen [Mass/volume] in Urine by Test strip 0.2 E.U./dL 0.0-1.0 MEDENT ([facility] [employer] [facility] [employer]) Bilirubin.total [Presence] in Urine by Test strip Laboratory test res ult MEDREMY ([facility] [employer]) ID Date Data Source [id number] 03/26/2020 12:00:00 AM EST MARILIA ([facility]) Name Value Range Interpretation Code Description Data Tashia rce(s) Supporting Document(s) ID Date Data Source [id number] 03/26/2020 12:00:00 AM EST MARILIA ([facility]) Name Value Range Interpretation Code Description Data Tashia rce(s) Supporting Document(s) SARS-CoV-2 (COVID-19) RNA [Presence] in Respiratory specimen by PHANI with probe detection negative negative Sars-cov-2 GIPSY ([facility]) ID Date Data Source [id number] 03/26/2020 12:00:00 AM EST MARILIA ([facility]) Name Value Range Interpretation Code Description Data Tashia rce(s) Supporting Document(s) ID Date Data Source [id number] 03/26/2020 12:00:00 AM EST MARILIA ([facility]) Name Value Range Interpretation Code Description Data Tashia rce(s) Supporting Document(s) SARS-CoV-2 (COVID-19) RNA [Presence] in Respiratory specimen by PHANI with probe detection negative negative Sars-cov-2 MARLIIA ([facility]) ID Date Data Source [id number] 03/26/2020 12:00:00 AM EST [facility] Name Value Range Interpretation Code Description Data Tashia rce(s) Supporting Document(s) SARS-CoV-2 NEGATIVE [facility] This lab was ordered by [employer] [facility]-COVID19 and reported by [facility]. ID Date Data Source [id number] 03/26/2020 12:00:00 AM EST MARILIA ([facility]) Name Value Range Interpretation Code Description Data Tashia rce(s) Supporting Document(s) ID Date Data Source [id number] 03/26/2020 12:00:00 AM EST MARILIA ([facility]) Name Value Range Interpretation Code Description Data Tashia rce(s) Supporting Document(s) SARS-CoV-2 (COVID-19) RNA [Presence] in Respiratory specimen by PHANI with probe detection negative negative Sars-cov-2 MARILIA ([facility]) ID Date Data Source [id number] 03/26/2020 12:00:00 AM EST MARILIA ([facility]) Name Value Range Interpretation Code Description Data Tashia rce(s) Supporting Document(s) ID Date Data Source [id number] 03/26/2020 12:00:00 AM EST MARILIA ([facility]) Name Value Range Interpretation Code Description Data Tashia rce(s) Supporting Document(s) SARS-CoV-2 (COVID-19) RNA [Presence] in Respiratory specimen by PHANI with probe detection negative negative Sars-cov-2 MARILIA ([facility]) ID Date Data Source [id number] 03/26/2020 12:00:00 AM EST MARILIA ([facility]) Name Value Range Interpretation Code Description Data Tashia rce(s) Supporting Document(s) ID Date Data Source [id number] 03/26/2020 12:00:00 AM EST MARILIA ([facility]) Name Value Range Interpretation Code Description Data Tashia rce(s) Supporting Document(s) SARS-CoV-2 (COVID-19) RNA [Presence] in Respiratory specimen by PHANI with probe detection negative negative Sars-cov-2 MARILIA ([facility]) ID Date Data Source [id number] 03/26/2020 12:00:00 AM EST MARILIA ([facility]) Name Value Range Interpretation Code Description Data Tashia rce(s) Supporting Document(s) ID Date Data Source [id number] 03/26/2020 12:00:00 AM EST MARILIA ([facility]) Name Value Range Interpretation Code Description Data Tashia rce(s) Supporting Document(s) SARS-CoV-2 (COVID-19) RNA [Presence] in Respiratory specimen by PHANI with probe detection negative negative Sars-cov-2 MARILIA ([facility]) ID Date Data Source [id number] 03/26/2020 12:00:00 AM EST MARILIA ([facility]) Name Value Range Interpretation Code Description Data Tashia rce(s) Supporting Document(s) ID Date Data Source [id number] 03/26/2020 12:00:00 AM EST MARILIA ([facility]) Name Value Range Interpretation Code Description Data Tashia rce(s) Supporting Document(s) SARS-CoV-2 (COVID-19) RNA [Presence] in Respiratory specimen by PHANI with probe detection negative negative Sars-cov-2 [facility]) ID Date Data Source [id number] 03/12/2020 10:08:00 AM EST MEDENT ([facility], ) Name Value Range Interpretation Code Description Data Tashia rce(s) Supporting Document(s) PDFReport Laboratory test result MEDENT ([facility], ) FVC-Pred 3.47 L MEDENT ([facility], ) FVC-%Pred-Pre 73 L MEDENT ([facility], ) FVC-Pre 2.54 L MEDENT ([facility], ) FVC-LLN 2.73 L MEDENT ([facility]) Fev1-%Pred-Pre 72 L MEDENT ([facility], ) Fev1-Pre 1.92 L MEDENT ([facility], ) Fev1-Pred 2.67 L MEDENT ([facility]) Fev6-Pred 3.34 L MEDENT ([facility]) Fev1-LLN 2.04 L MEDENT ([facility], ) Fev6-%Pred-Pre 75 L MEDENT ([facility], ) Hdj7ofa-Hbjd 77 % MEDENT ([facility]) Fev6-Pre 2.51 L MEDENT ([facility]) Fev6-LLN 2.62 L MEDENT ([facility]) Yfp1beg-Ozv 76 % MEDENT ([facility]) Meu5tab-%Pred-Pre 97 % MEDENT ([facility]) Rpx1dnu-LYV 68 % MEDENT ([facility]) Zom3fef-%Pred-Pre 102 % MEDENT ([facility]) Agg5lkr-Mqlv 96 % MEDENT ([facility]) Wfg5iim-Kaf 99 % MEDENT ([facility]) FEFMax-Pre 5.72 L/E/sec MEDENT ([facility]) FEFMax-Pred 6.43 L/E/sec MEDENT ([facility], ) FEFMax-%Pred-Pre 88 L/E/sec MEDENT ([facility]) Cys8018-Bjey 2.34 L/E/sec MEDENT ([facility]) FEFMax-LLN 4.61 L/E/sec MEDENT ([facility]) Mcz5595-Pfp 1.46 L/E/sec MEDENT ([facility]) Aqd5754-AVJ 1.02 L/E/sec MEDENT ([facility]) ExpTime-Pre 7.33 sec MEDENT ([facility]) Enp2992-%Pred-Pre 62 L/E/sec MEDENT ([facility]) Pxm3eqw1-Puu 76 % MEDENT ([facility]) Yuf7ofy8-%Pred-Pre 95 % MEDENT ([facility]) Aka1mfw6-Esmy 80 % MEDENT ([facility]) Dve9pms5-MOH 71 % MEDENT ([facility]) ID Date Data Source [id number] 01/10/2020 02:03:00 PM EST MEDENT ([facility] [employer] [facility]) Name Value Range Interpretation Code Description Data Tashia rce(s) Supporting Document(s) Bacteria identified in Vaginal fluid by Aerobe culture Laborator y test result MEDENT ([employer] [employer] [facility]) ID Date Data Source [id number] 01/11/2020 11:49:00 AM EST [facility] Name Value Range Interpretation Code Description Data Tashia rce(s) Supporting Document(s) LINDA BY DNA PROBE NEGATIVE NEGATIVE [facility] GARDNERELLA BY DNA PROBE POSITIVE NEGATIVE A [facility] TRICHOMONAS BY DNA PROBE NEGATIVE NEGATIVE [facility] TESTING PERFORMED BY NUCLEIC ACID HYBRI DIZATION ID Date Data Source [id number] 01/10/2020 02:03:00 PM EST MEDENT ([facility] [employer] [facility]) Name Value Range Interpretation Code Description Data Tashia rce(s) Supporting Document(s) Gardnerella By Dna Probe Laboratory test result Abnormal (applies to non- numeric results) MEDENT ([facility] [employer] [facility]) Linda sp rRNA [Presence] in Vaginal fluid by DNA probe Lab oratory test result MEDENT ([facility]) Trichomonas vaginalis rRNA [Presence] in Genital speci men by DNA probe Laboratory test result MEDENT ([employer] [employer] [facility]) TESTING PERFORMED BY NUCLEIC ACID HYBRID IZATION ID Date Data Source [id number] 01/12/2020 11:21:00 AM EST [facility] Run: 01/12/20 1121 INTERFACED REPORT Name: Trini Jiang Age/Sex: 64/F Location: [facility] Acct: [id number] Unit: [id number] Status: REG REF Room/Bed: Re01/10/20 Disch: Junior Dr: Amira Garg PA Specimen #: [id number] Ordered : 01/10/2007/24/1930 Collected : 01/10/2007/24/1401 By: [...] rce(s) Supporting Document(s) ID Date Data Source [id number] 01/10/2020 02:02:00 PM EST MEDENT ([facility] [employer]) Name Value Range Interpretation Code Description Data Tashia rce(s) Supporting Document(s) Bacteria identified in Urine by Culture Laboratory test result MEDENT ([employer] [employer]) <content> --------</content>
<content>Run: 01/12/20 1121 INTERFACED REPORT</content>
<content> </content>
<content>Name: Trini Jiang Age/Sex: 64/F Location: [facility]</content>
<content>Acct: [id number] Unit: [id number] Status: REG REF Room/Bed:</content>
<content>Re01/10/20 Disch: Junior Dr: Amira Garg</content>
<content> </content>
<content></content>
<content>Specimen #: [id number] Ordered : 01/10/2007/24/1930</content>
<content>Collected : 01/10/2007/24/1401 By: [...] REPORT </content>
<content></content> ID Date Data Source [id number] 01/10/2020 02:01:00 PM EST MEDENT ([facility] [employer]) Name Value Range Interpretation Code Description Data Tashia rce(s) Supporting Document(s) Glucose [Presence] in Urine Laboratory test result MEDENT ([facility] [employer]) Protein [Presence] in Urine by Test strip Laboratory test result MEDENT ([facility] [employer] [facility] [employer]) Ua Nitrite Laboratory test result ME DENT ([facility] [employer] [facility] [employer]) Ua Leuko Laboratory test result ME DENT ([facility] [employer] [facility] [employer]) Blood [Presence] in Urine by Visual Laboratory test result MEDENT ([facility] [employer] [facility] [employer]) Ketones [Presence] in Urine by Test strip 15 mg/dL MEDENT ([facility] [employer] [facility]) Color of Urine Laboratory test result MEDENT ([facility] [employer] [facility]) pH of Urine by Test strip 6.5 5.0-7.5 MEDENT ([facility] [employer] [facility]) Ua Specific [place] 1.020 1.003-1.030 MEDE NT ([facility] [employer] [facility]) Clarity of Urine Laboratory test result MEDENT ([facility] [employer] [facility]) Urobilinogen [Mass/volume] in Urine by Test strip 0.2 E.U./dL 0.0-1.0 MEDENT ([facility] [employer] [facility]) Bilirubin.total [Presence] in Urine by Test strip Laboratory test res ult MEDENT ([facility] [employer] [facility]) ID Date Data Source [id number] 01/10/2020 01:44:00 PM EST MEDENT ([facility] [employer] [facility]) Name Value Range Interpretation Code Description Data Tashia rce(s) Supporting Document(s) Glucose [Presence] in Urine Laboratory test result MEDENT ([facility] [employer] [facility]) Ua Nitrite Laboratory test result ME DENT ([facility] [employer] [facility]) Protein [Presence] in Urine by Test strip Laboratory test result MEDENT ([facility] [employer] [facility]) Ua Leuko Laboratory test result ME DENT ([facility] [employer] [facility]) Blood [Presence] in Urine by Visual Laboratory test result MEDENT ([facility] [employer] [facility]) Ketones [Presence] in Urine by Test strip 15 mg/dL MEDENT ([facility] [employer] [facility]) Clarity of Urine Laboratory test result MEDENT ([facility] [employer] [facility]) Color of Urine Laboratory test result MEDENT ([facility] [employer] [facility]) Ua Specific [place] 1.025 1.003-1.030 MEDE NT ([facility] [employer] [facility]) pH of Urine by Test strip 6.0 5.0-7.5 MEDENT ([facility] [employer] [facility]) Urobilinogen [Mass/volume] in Urine by Test strip 0.2 E.U./dL 0.0-1.0 MEDENT ([facility] [employer] [facility]) Bilirubin.total [Presence] in Urine by Test strip Laboratory test res ult MEDENT ([facility] [employer] [facility]) ID Date Data Source [id number] 12/13/2019 12:42:00 PM [facility] Run: 12/13/19 1243 INTERFACED REPORT Name: Trini Jiang Bridger Age/Sex: 64/F Location: [facility] Acct: [id number] Unit: [id number] Status: REG REF Room/Bed: Re12/11/19 Disch: Att Dr: Monica Bal MD Specimen #: [id number] Ordered : 12/11/1908/24/2102 Collected : 12/11/1908/25/1547 By: [...] Name Value Range Interpretation Code Description Data [facility](s) Supporting Document(s) ID Date Data Source [id number] 12/11/2019 03:48:00 PM EDT MEDENT ([facility] [employer]) Name Value Range Interpretation Code Description Data [facility](s) Supporting Document(s) Bacteria identified in Urine by Culture Laboratory test result MEDENT ([facility] [employer]) <content> --------</content>
<content>Run: 12/13/19 1243 INTERFACED REPORT</content>
<content> </content>
<content>Name: Trini Jiang Age/Sex: 64/F Location: [facility]</content>
<content>Acct: [id number] Unit: [id number] Status: REG REF Room/Bed:</content>
<content>Re12/11/19 Disch: Att Dr: Monica Bal MD</content>
<content> </content>
<content></content>
<content>Specimen #: [id number] Ordered : 12/11/1908/24/2102</content>
<content>Collected : 12/11/1908/25/1547 By: OFFICE Received: 12/11/1908/24/2102 By: GMACDOUGAL</content>
<content>Source: URINE CATH [...] REPORT </content>
<content></content> ID Date Data Source [id number] 11/28/2019 12:00:00 AM EDT MARILIA ([facility]) Name Value Range Interpretation Code Description Data Tashia rce(s) Supporting Document(s) ID Date Data Source [id number] 11/28/2019 12:00:00 AM EDT [facility] Name Value Range Interpretation Code Description Data Tashia rce(s) Supporting Document(s) SARS-CoV-2 [facility] This lab was ordered by [facility]-COVID19 and reported by [facility]. ID Date Data Source [id number] 11/28/2019 12:00:00 AM EDT MARILIA ([facility]) Name Value Range Interpretation Code Description Data Tashia rce(s) Supporting Document(s) ID Date Data Source [id number] 11/28/2019 12:00:00 AM EDT MARILIA ([facility]) Name Value Range Interpretation Code Description Data Tashia rce(s) Supporting Document(s) ID Date Data Source [id number] 11/28/2019 12:00:00 AM EDT MARILIA ([facility]) Name Value Range Interpretation Code Description Data Tashia rce(s) Supporting Document(s) ID Date Data Source [id number] 11/28/2019 12:00:00 AM EDT MARILIA ([facility]) Name Value Range Interpretation Code Description Data Tashia rce(s) Supporting Document(s) ID Date Data Source [id number] 11/28/2019 12:00:00 AM EDT MARILIA ([facility]) Name Value Range Interpretation Code Description Data Tashia rce(s) Supporting Document(s) ID Date Data Source [id number] 11/28/2019 12:00:00 AM EDT MARILIA ([facility]) Name Value Range Interpretation Code Description Data Tashia rce(s) Supporting Document(s) ID Date Data Source [id number] 11/28/2019 12:00:00 AM EDT MARILIA ([facility]) Name Value Range Interpretation Code Description Data Tashia rce(s) Supporting Document(s) ID Date Data Source [id number] 11/28/2019 12:00:00 AM EDT MARILIA ([facility]) Name Value Range Interpretation Code Description Data Tashia rce(s) Supporting Document(s) ID Date Data Source [id number] 11/28/2019 12:00:00 AM EDT MARILIA ([facility]) Name Value Range Interpretation Code Description Data Tashia rce(s) Supporting Document(s) ID Date Data Source [id number] 11/28/2019 12:00:00 AM EDT MARILIA ([facility]) Name Value Range Interpretation Code Description Data Tashia rce(s) Supporting Document(s) ID Date Data Source [id number] 11/27/2019 11:57:00 AM EDT MEDENT ([facility]) Name Value Range Interpretation Code Description Data Tashia rce(s) Supporting Document(s) Protein [Presence] in Urine by Test strip Laboratory test result MEDENT ([facility]) Glucose [Presence] in Urine Laboratory test result MEDENT ([facility]) Ua Nitrite Laboratory test result ME DENT ([facility] [employer] [facility] [facility] [employer]) Color of Urine Laboratory test result MEDENT ([facility]) Ua Leuko Laboratory test result ME DENT ([facility]) Blood [Presence] in Urine by Visual Laboratory test result MEDENT ([facility]) Clarity of Urine Laboratory test result MEDENT ([facility] [employer]) Ketones [Presence] in Urine by Test strip Laboratory test result MEDENT ([facility] [employer]) Ua Specific [place] Laboratory test result 1.003-1.030 MEDENT ([facility] [employer]) Urobilinogen [Mass/volume] in Urine by Test strip 0.2 E.U./dL 0.0-1.0 MEDENT ([facility] [employer] [facility]) Bilirubin.total [Presence] in Urine by Test strip Laboratory test res ult MEDENT ([facility] [employer] [facility] [employer]) pH of Urine by Test strip 5.5 5.0-7.5 MEDREMY ([facility] [employer]) Procedure Social History Code Duration Value Status Description Data Source(s ) Smoking 01/22/2021 12:00:00 AM EST Never Smoker completed Never S moker eCW1 ([facility]) Smoking 12/20/2020 12:00:00 AM EDT Never Smoker completed Never S moker eCW1 ([facility]) Smoking 12/20/2020 12:00:00 AM EDT Never Smoker completed Never S moker eCW1 ([facility]) Smoking 12/20/2020 12:00:00 AM EDT Never Smoker completed Never S moker eCW1 ([facility]) Smoking 12/20/2020 12:00:00 AM EDT Never Smoker completed Never S moker eCW1 ([facility]) Smoking 12/20/2020 12:00:00 AM EDT Never Smoker completed Never S moker eCW1 ([facility]) Smoking 12/20/2020 12:00:00 AM EDT Never Smoker completed Never S moker eCW1 ([facility]) Smoking 12/20/2020 12:00:00 AM EDT Never Smoker completed Never S moker eCW1 ([facility]) Smoking 11/14/2020 12:00:00 AM EDT Never Smoker completed Never S moker eCW1 ([facility]) Smoking 11/14/2020 12:00:00 AM EDT Never Smoker completed Never S moker eCW1 ([facility]) Smoking 11/14/2020 12:00:00 AM EDT Never Smoker completed Never S moker eCW1 ([facility]) Smoking 11/14/2020 12:00:00 AM EDT Never Smoker completed Never S moker eCW1 ([facility]) Smoking 11/14/2020 12:00:00 AM EDT Never Smoker completed Never S moker eCW1 ([facility]) Smoking 11/14/2020 12:00:00 AM EDT Never Smoker completed Never S moker eCW1 ([facility]) Smoking 11/14/2020 12:00:00 AM EDT Never Smoker completed Never S moker eCW1 [facility] [place] Smoking 11/14/2020 12:00:00 AM EDT Never Smoker completed Never S moker eCW1 ([facility]) Smoking 11/14/2020 12:00:00 AM EDT Never Smoker completed Never S moker eCW1 ([facility]) Smoking 11/14/2020 12:00:00 AM EDT Never Smoker completed Never S moker eCW1 ([facility]) Smoking 11/14/2020 12:00:00 AM EDT Never Smoker completed Never S moker eCW1 ([facility]) Smoking 11/14/2020 12:00:00 AM EDT Never Smoker completed Never S moker eCW1 ([facility]) Smoking 10/21/2020 12:00:00 AM EDT Never Smoker completed Never S moker eCW1 ([facility]) Smoking 10/21/2020 12:00:00 AM EDT Never Smoker completed Never S moker eCW1 ([facility]) Smoking 10/21/2020 12:00:00 AM EDT Never Smoker completed Never S moker eCW1 ([facility]) Smoking 10/21/2020 12:00:00 AM EDT Never Smoker completed Never S moker eCW1 ([facility]) Smoking 10/21/2020 12:00:00 AM EDT Never Smoker completed Never S moker eCW1 ([facility]) Smoking 10/08/2020 12:00:00 AM EDT Patient has never smoked co mpleted Patient has never smoked MEDENT ([facility] ) Smoking 09/22/2020 12:00:00 AM EDT Never Smoker completed Never S moker eCW1 ([facility]) Smoking 09/22/2020 12:00:00 AM EDT Never Smoker completed Never S moker eCW1 ([facility]) Smoking 08/11/2020 12:00:00 AM EDT Never Smoked Cigarettes com pleted Never Smoked Cigarettes MEDENT ([employer] [employer] [facility]) Smoking 07/04/2020 12:00:00 AM EDT Never Smoker completed Never S moker eCW1 ([facility]) Smoking 07/04/2020 12:00:00 AM EDT Never Smoker completed Never S moker eCW1 ([facility]) Smoking 07/04/2020 12:00:00 AM EDT Never Smoker completed Never S moker eCW1 ([facility]) Smoking 07/04/2020 12:00:00 AM EDT Never Smoker completed Never S moker eCW1 ([facility]) Smoking 07/04/2020 12:00:00 AM EDT Never Smoker completed Never S moker eCW1 ([facility]) Smoking 07/04/2020 12:00:00 AM EDT Never Smoker completed Never S moker eCW1 ([facility]) Smoking 07/04/2020 12:00:00 AM EDT Never Smoker completed Never S moker eCW1 ([facility]) Smoking 07/04/2020 12:00:00 AM EDT Never Smoker completed Never S moker eCW1 ([facility]) Smoking 07/04/2020 12:00:00 AM EDT Never Smoker completed Never S moker eCW1 ([facility]) Smoking 07/04/2020 12:00:00 AM EDT Never Smoker completed Never S moker eCW1 ([facility]) Smoking 07/04/2020 12:00:00 AM EDT Never Smoker completed Never S moker eCW1 ([facility]) Smoking 05/26/2020 12:00:00 AM EDT Never Smoker completed Never S moker eCW1 ([facility]) Smoking 05/26/2020 12:00:00 AM EDT Never Smoker completed Never S moker eCW1 ([facility]) Smoking 05/26/2020 12:00:00 AM EDT Never Smoker completed Never S moker eCW1 ([facility]) Smoking 05/26/2020 12:00:00 AM EDT Never Smoker completed Never S moker eCW1 ([facility]) Smoking 05/26/2020 12:00:00 AM EDT Never Smoker completed Never S moker eCW1 ([facility]) Smoking 05/26/2020 12:00:00 AM EDT Never Smoker completed Never S moker eCW1 ([facility]) Smoking 05/26/2020 12:00:00 AM EDT Never Smoker completed Never S moker eCW1 ([facility]) Smoking 05/26/2020 12:00:00 AM EDT Never Smoker completed Never S moker eCW1 ([facility]) Smoking 05/26/2020 12:00:00 AM EDT Never Smoker completed Never S moker eCW1 ([facility]) Smoking 05/26/2020 12:00:00 AM EDT Never Smoker completed Never S moker eCW1 ([facility]) Smoking 05/26/2020 12:00:00 AM EDT Never Smoker completed Never S moker eCW1 ([facility]) Smoking 05/12/2020 12:00:00 AM EST Never Smoker completed Never S moker eCW1 ([facility]) Smoking 05/12/2020 12:00:00 AM EST Never Smoker completed Never S moker eCW1 ([facility]) Smoking 05/12/2020 12:00:00 AM EST Never Smoker completed Never S moker eCW1 ([facility]) Vital Signs ID Date Data Source UNK Name Value Range Interpretation Code Description Data Source(s) Body temperature 96.9 [degF] 96.9 [degF] eCW1 ( [facility]) Respiratory rate 18 /min 18 /min eCW1 ([facility]) Heart rate 88 /min 88 /min eCW1 ([facility]) Body mass index (BMI) [Ratio] 35.80 kg/m2 35.80 kg/m2 W1 ([facility]) Body height 66 [in_i] 66 [in_i] eCW1 ([facility]) Body weight 100.61 kg 100.61 kg eCW1 ([facility]) Body weight 221.8 [lb_av] 221.8 [lb_av] eCW1 ([facility]) Diastolic blood pressure 78 mm[Hg] 78 mm[Hg] eCW1 ([facility]) Systolic blood pressure 122 mm[Hg] 122 mm[Hg] e CW1 ([facility]) Body temperature 96.9 [degF] 96.9 [degF] eCW1 ( [facility]) Respiratory rate 18 /min 18 /min eCW1 ([facility]) Heart rate 88 /min 88 /min eCW1 ([facility]) Body mass index (BMI) [Ratio] 35.80 kg/m2 35.80 kg/m2 eCW1 ([facility]) Body height 66 [in_i] 66 [in_i] eCW1 ([facility]) Body weight 100.61 kg 100.61 kg eCW1 ([facility]) Body weight 221.8 [lb_av] 221.8 [lb_av] eCW1 ([facility]) Diastolic blood pressure 78 mm[Hg] 78 mm[Hg] eCW1 ([facility]) Systolic blood pressure 122 mm[Hg] 122 mm[Hg] e CW1 ([facility]) Diastolic blood pressure 62 mm[Hg] 62 mm[Hg] eCW1 ([facility]) Systolic blood pressure 128 mm[Hg] 128 mm[Hg] e CW1 ([facility]) Body temperature 97.4 [degF] 97.4 [degF] eCW1 ( [facility]) Respiratory rate 18 /min 18 /min eCW1 ([facility]) Heart rate 105 /min 105 /min eCW1 ([facility]) Body mass index (BMI) [Ratio] 36.44 kg/m2 36.44 kg/m2 eCW1 ([facility]) Body height 66 [in_i] 66 [in_i] eCW1 ([facility]) Body weight 102.42 kg 102.42 kg eCW1 ([facility]) Body weight 225.8 [lb_av] 225.8 [lb_av] eCW1 ([facility]) Body surface area Derived from formula 2.11 m2 2.11 m2 MEDENT ([facility], ) Body weight 103.421 kg 103.421 kg MEDENT ([facility]) Ivel body weight 130 [lb_av] 130 [lb_av] MEDEN T ([facility]) Body mass index (BMI) [Ratio] 36.8 kg/m2 36.8 k g/m2 MEDENT ([facility]) Body weight 228.00 [lb_av] 228.00 [lb_av] MEDEN T ([facility], ) Body height 66 [in_i] 66 [in_i] MEDENT ([facility]) 5'6" Diastolic blood pressure 64 mm[Hg] 64 mm[Hg] MEDENT ([facility]) Systolic blood pressure 112 mm[Hg] 112 mm[Hg] M EDENT ([facility], ) Body weight 224 [lb_av] 224 [lb_av] MARILIA ([facility]) Systolic blood pressure 128 mm[Hg] 128 mm[Hg] A THENA ([facility]) Body mass index (BMI) [Ratio] 36.2 kg/m2 36.2 k g/m2 MARILIA ([facility]) Body height 66 [in_i] 66 [in_i] MARILIA ([facility]) Diastolic blood pressure 74 mm[Hg] 74 mm[Hg] MARILIA ([facility]) Body weight 224 [lb_av] 224 [lb_av] MARILIA ([facility]) Systolic blood pressure 128 mm[Hg] 128 mm[Hg] A THENA ([facility]) Body mass index (BMI) [Ratio] 36.2 kg/m2 36.2 k g/m2 MARILIA ([facility]) Body height 66 [in_i] 66 [in_i] MARILIA ([facility]) Diastolic blood pressure 74 mm[Hg] 74 mm[Hg] MARILIA ([facility]) Body weight 224 [lb_av] 224 [lb_av] MARILIA ([facility]) Systolic blood pressure 128 mm[Hg] 128 mm[Hg] A THENA ([facility]) Body mass index (BMI) [Ratio] 36.2 kg/m2 36.2 k g/m2 MARILIA ([facility]) Body height 66 [in_i] 66 [in_i] MARILIA ([facility]) Diastolic blood pressure 74 mm[Hg] 74 mm[Hg] MARILIA ([facility]) Body surface area Derived from formula 2.10 m2 2.10 m2 [facility]) Body weight 101.606 kg 101.606 kg [facility] ([facility]) Ivel body weight 130 [lb_av] 130 [lb_av] MEDEN T ([facility]) Body mass index (BMI) [Ratio] 36.2 kg/m2 36.2 k g/m2 [facility] ([facility]) Body weight 224.00 [lb_av] 224.00 [lb_av] [facility] Body height 66 [in_i] 66 [in_i] [facility] ([facility]) 5'6" Oxygen saturation in Arterial blood by Pulse oximetry 96 % 96 % [facility] ([facility]) Heart rate 95 /min 95 /min [facility] ([facility]) Diastolic blood pressure 84 mm[Hg] 84 mm[Hg] [facility] ([facility]) Systolic blood pressure 132 mm[Hg] 132 mm[Hg] M EDENT ([facility]) Diastolic blood pressure 72 mm[Hg] 72 mm[Hg] eCW1 ([facility]) Systolic blood pressure 116 mm[Hg] 116 mm[Hg] e CW1 ([facility]) Body temperature 97.7 [degF] 97.7 [degF] eCW1 ( [facility]) Respiratory rate 18 /min 18 /min eCW1 ([facility]) Heart rate 91 /min 91 /min eCW1 ([facility]) Body mass index (BMI) [Ratio] 36.96 kg/m2 36.96 kg/m2 [facility] ([facility]) Body height 66 [in_i] 66 [in_i] eCW1 ([facility]) Body weight 229 [lb_av] 229 [lb_av] eCW1 ([facility]) Systolic blood pressure 115 mm[Hg] 115 mm[Hg] A THENA ([facility]) Diastolic blood pressure 77 mm[Hg] 77 mm[Hg] MARILIA ([facility]) Systolic blood pressure 115 mm[Hg] 115 mm[Hg] A THENA ([facility]) Diastolic blood pressure 77 mm[Hg] 77 mm[Hg] MARILIA ([facility]) Systolic blood pressure 115 mm[Hg] 115 mm[Hg] A THENA ([facility]) Diastolic blood pressure 77 mm[Hg] 77 mm[Hg] MARILIA ([facility]) Systolic blood pressure 115 mm[Hg] 115 mm[Hg] A THENA ([facility]) Diastolic blood pressure 77 mm[Hg] 77 mm[Hg] MARILIA ([facility]) Systolic blood pressure 115 mm[Hg] 115 mm[Hg] A THENA ([facility]) Diastolic blood pressure 77 mm[Hg] 77 mm[Hg] MARILIA ([facility]) Body mass index (BMI) [Ratio] 35.2 kg/m2 35.2 k g/m2 MEDENT ([facility]) Body weight 218.00 [lb_av] 218.00 [lb_av] MEDEN T ([facility]) Body height 66 [in_i] 66 [in_i] MEDENT ([facility]) 5'6" Diastolic blood pressure 70 mm[Hg] 70 mm[Hg] eCW1 ([facility]) Systolic blood pressure 122 mm[Hg] 122 mm[Hg] e CW1 ([facility]) Body temperature 97.1 [degF] 97.1 [degF] eCW1 ( [facility]) Respiratory rate 20 /min 20 /min eCW1 ([facility]) Heart rate 94 /min 94 /min eCW1 ([facility]) Body mass index (BMI) [Ratio] 39.02 kg/m2 39.02 kg/m2 eCW1 ([facility]) Body height 66 [in_i] 66 [in_i] eCW1 ([facility]) Body weight 241.8 [lb_av] 241.8 [lb_av] eCW1 ([facility]) Diastolic blood pressure 68 mm[Hg] 68 mm[Hg] eCW1 ([facility]) Systolic blood pressure 110 mm[Hg] 110 mm[Hg] e CW1 ([facility]) Body temperature 98.3 [degF] 98.3 [degF] eCW1 ( [facility]) Respiratory rate 18 /min 18 /min eCW1 ([facility]) Heart rate 96 /min 96 /min eCW1 ([facility]) Body mass index (BMI) [Ratio] 36.86 kg/m2 36.86 kg/m2 eCW1 ([facility]) Body height 66 [in_i] 66 [in_i] eCW1 ([facility]) Body weight 228.4 [lb_av] 228.4 [lb_av] eCW1 ([facility]) Diastolic blood pressure 78 mm[Hg] 78 mm[Hg] eCW1 ([facility]) Systolic blood pressure 102 mm[Hg] 102 mm[Hg] e CW1 ([facility]) Body temperature 97.8 [degF] 97.8 [degF] eCW1 ( [facility]) Respiratory rate 18 /min 18 /min eCW1 ([facility]) Heart rate 95 /min 95 /min eCW1 ([facility]) Body mass index (BMI) [Ratio] 36.96 kg/m2 36.96 kg/m2 eCW1 ([facility]) Body height 66 [in_i] 66 [in_i] eCW1 ([facility]) Body weight 229 [lb_av] 229 [lb_av] eCW1 ([facility]) Systolic blood pressure 134 mm[Hg] 134 mm[Hg] A THENA ([facility]) Diastolic blood pressure 85 mm[Hg] 85 mm[Hg] MARILIA ([facility]) Systolic blood pressure 134 mm[Hg] 134 mm[Hg] A THENA ([facility]) Diastolic blood pressure 85 mm[Hg] 85 mm[Hg] MARILIA ([facility]) Systolic blood pressure 134 mm[Hg] 134 mm[Hg] A THENA ([facility]) Diastolic blood pressure 85 mm[Hg] 85 mm[Hg] MARILIA ([facility]) Systolic blood pressure 134 mm[Hg] 134 mm[Hg] A THENA ([facility]) Diastolic blood pressure 85 mm[Hg] 85 mm[Hg] MARILIA ([facility]) Systolic blood pressure 134 mm[Hg] 134 mm[Hg] A THENA ([facility]) Diastolic blood pressure 85 mm[Hg] 85 mm[Hg] MARILIA ([facility]) Systolic blood pressure 134 mm[Hg] 134 mm[Hg] A THENA ([facility]) Diastolic blood pressure 85 mm[Hg] 85 mm[Hg] MARILIA ([facility]) Body surface area Derived from formula 2.12 m2 2.12 m2 [facility] ([facility]) Body weight 103.874 kg 103.874 kg [facility] ([facility]) Ivel body weight 130 [lb_av] 130 [lb_av] [facility] Body mass index (BMI) [Ratio] 37.0 kg/m2 37.0 k g/m2 [facility] ([facility]) Body weight 229.00 [lb_av] 229.00 [lb_av] [facility] Body height 66 [in_i] 66 [in_i] [facility] ([facility]) 5'6" Oxygen saturation in Arterial blood by Pulse oximetry 98 % 98 % [facility] ([facility]) Room Air Heart rate 88 /min 88 /min [facility] ([facility]) Diastolic blood pressure 76 mm[Hg] 76 mm[Hg] [facility] ([facility]) Systolic blood pressure 126 mm[Hg] 126 mm[Hg] [facility] Body surface area Derived from formula 2.12 m2 2.12 m2 [facility] ([facility]) Body weight 103.874 kg 103.874 kg [facility] ([facility]) Ivel body weight 130 [lb_av] 130 [lb_av] [facility]) Body mass index (BMI) [Ratio] 37.0 kg/m2 37.0 k g/m2 [facility] ([facility]) Body weight 229.00 [lb_av] 229.00 [lb_av] [facility]) Body height 66 [in_i] 66 [in_i] [facility] ([facility]) 5'6" Oxygen saturation in Arterial blood by Pulse oximetry 98 % 98 % [facility] ([facility]) Room Air Ivel body weight 130 [lb_av] 130 [lb_av] [facility]) Body height 66 [in_i] 66 [in_i] [facility] ([facility]) 5'6" Patient Treatment Plan of Care Planned Activity Planned Date Details Description Data Source (s) celecoxib 200 MG Oral Capsule [Celebrex] 01/16/2021 12:00:00 AM EST eCW1 ([facility]) celecoxib 200 MG Oral Capsule [Celebrex] 01/16/2021 12:00:00 AM EST eCW1 ([facility]) celecoxib 200 MG Oral Capsule [Celebrex] 01/16/2021 12:00:00 AM EST eCW1 ([facility]) NITROFURANTOIN, MACROCRYSTALS 25 MG / Ni trofurantoin, Monohydrate 75 MG Oral Capsule [Macrobid] 11/17/2020 12:00:00 AM EDT eC W1 ([facility]) NITROFURANTOIN, MACROCRYSTALS 25 MG / Ni trofurantoin, Monohydrate 75 MG Oral Capsule [Macrobid] 11/17/2020 12:00:00 AM EDT eC W1 ([facility]) NITROFURANTOIN, MACROCRYSTALS 25 MG / Ni trofurantoin, Monohydrate 75 MG Oral Capsule [Macrobid] 11/17/2020 12:00:00 AM EDT eC W1 ([facility]) NITROFURANTOIN, MACROCRYSTALS 25 MG / Ni trofurantoin, Monohydrate 75 MG Oral Capsule [Macrobid] 11/17/2020 12:00:00 AM EDT eC W1 ([facility]) NITROFURANTOIN, MACROCRYSTALS 25 MG / Ni trofurantoin, Monohydrate 75 MG Oral Capsule [Macrobid] 11/17/2020 12:00:00 AM EDT eC W1 ([facility]) NITROFURANTOIN, MACROCRYSTALS 25 MG / Ni trofurantoin, Monohydrate 75 MG Oral Capsule [Macrobid] 11/17/2020 12:00:00 AM EDT eC W1 ([facility]) NITROFURANTOIN, MACROCRYSTALS 25 MG / Ni trofurantoin, Monohydrate 75 MG Oral Capsule [Macrobid] 11/17/2020 12:00:00 AM EDT eC W1 ([facility]) NITROFURANTOIN, MACROCRYSTALS 25 MG / Ni trofurantoin, Monohydrate 75 MG Oral Capsule [Macrobid] 11/17/2020 12:00:00 AM EDT eC W1 ([facility]) NITROFURANTOIN, MACROCRYSTALS 25 MG / Ni trofurantoin, Monohydrate 75 MG Oral Capsule [Macrobid] 11/17/2020 12:00:00 AM EDT eC W1 ([facility]) NITROFURANTOIN, MACROCRYSTALS 25 MG / Ni trofurantoin, Monohydrate 75 MG Oral Capsule [Macrobid] 11/17/2020 12:00:00 AM EDT eC W1 ([facility]) NITROFURANTOIN, MACROCRYSTALS 25 MG / Ni trofurantoin, Monohydrate 75 MG Oral Capsule [Macrobid] 11/17/2020 12:00:00 AM EDT eC W1 ([facility]) NITROFURANTOIN, MACROCRYSTALS 25 MG / Ni trofurantoin, Monohydrate 75 MG Oral Capsule [Macrobid] 11/17/2020 12:00:00 AM EDT eC W1 ([facility]) NITROFURANTOIN, MACROCRYSTALS 25 MG / Ni trofurantoin, Monohydrate 75 MG Oral Capsule [Macrobid] 11/17/2020 12:00:00 AM EDT eC W1 ([facility]) NITROFURANTOIN, MACROCRYSTALS 25 MG / Ni trofurantoin, Monohydrate 75 MG Oral Capsule [Macrobid] 11/17/2020 12:00:00 AM EDT eC W1 ([facility]) NITROFURANTOIN, MACROCRYSTALS 25 MG / Ni trofurantoin, Monohydrate 75 MG Oral Capsule [Macrobid] 11/17/2020 12:00:00 AM EDT eC W1 ([facility]) NITROFURANTOIN, MACROCRYSTALS 25 MG / Ni trofurantoin, Monohydrate 75 MG Oral Capsule [Macrobid] 11/17/2020 12:00:00 AM EDT eC W1 ([facility]) NITROFURANTOIN, MACROCRYSTALS 25 MG / Ni trofurantoin, Monohydrate 75 MG Oral Capsule [Macrobid] 11/17/2020 12:00:00 AM EDT eC W1 ([facility]) NITROFURANTOIN, MACROCRYSTALS 25 MG / Ni trofurantoin, Monohydrate 75 MG Oral Capsule [Macrobid] 11/17/2020 12:00:00 AM EDT eC W1 ([facility]) Mupirocin 0.02 MG/MG Topical Ointment 11/14/2020 12:00:00 AM EDT eCW1 ([facility]) ferric carboxymaltose 50 MG/ML Injectable Solution [In jectafer] 11/14/2020 12:00:00 AM EDT eCW1 ([facility]) Mupirocin 0.02 MG/MG Topical Ointment 11/14/2020 12:00:00 AM EDT eCW1 ([facility]) ferric carboxymaltose 50 MG/ML Injectable Solution [In jectafer] 11/14/2020 12:00:00 AM EDT eCW1 ([facility]) Mupirocin 0.02 MG/MG Topical Ointment 11/14/2020 12:00:00 AM EDT eCW1 ([facility]) ferric carboxymaltose 50 MG/ML Injectable Solution [In jectafer] 11/14/2020 12:00:00 AM EDT eCW1 ([facility]) Mupirocin 0.02 MG/MG Topical Ointment 11/14/2020 12:00:00 AM EDT eCW1 ([facility]) ferric carboxymaltose 50 MG/ML Injectable Solution [In jectafer] 11/14/2020 12:00:00 AM EDT eCW1 ([facility]) Mupirocin 0.02 MG/MG Topical Ointment 11/14/2020 12:00:00 AM EDT eCW1 ([facility]) ferric carboxymaltose 50 MG/ML Injectable Solution [In jectafer] 11/14/2020 12:00:00 AM EDT eCW1 ([facility]) Mupirocin 0.02 MG/MG Topical Ointment 11/14/2020 12:00:00 AM EDT eCW1 ([facility]) ferric carboxymaltose 50 MG/ML Injectable Solution [In jectafer] 11/14/2020 12:00:00 AM EDT eCW1 ([facility]) Mupirocin 0.02 MG/MG Topical Ointment 11/14/2020 12:00:00 AM EDT eCW1 ([facility]) ferric carboxymaltose 50 MG/ML Injectable Solution [In jectafer] 11/14/2020 12:00:00 AM EDT eCW1 ([facility]) Mupirocin 0.02 MG/MG Topical Ointment 11/14/2020 12:00:00 AM EDT eCW1 ([facility]) ferric carboxymaltose 50 MG/ML Injectable Solution [In jectafer] 11/14/2020 12:00:00 AM EDT eCW1 ([facility]) ferric carboxymaltose 50 MG/ML Injectable Solution [In jectafer] 11/14/2020 12:00:00 AM EDT eCW1 ([facility]) Mupirocin 0.02 MG/MG Topical Ointment 11/14/2020 12:00:00 AM EDT eCW1 ([facility]) ferric carboxymaltose 50 MG/ML Injectable Solution [In jectafer] 11/14/2020 12:00:00 AM EDT eCW1 ([facility]) Mupirocin 0.02 MG/MG Topical Ointment 11/14/2020 12:00:00 AM EDT eCW1 ([facility]) Mupirocin 0.02 MG/MG Topical Ointment 11/14/2020 12:00:00 AM EDT eCW1 ([facility]) ferric carboxymaltose 50 MG/ML Injectable Solution [In jectafer] 11/14/2020 12:00:00 AM EDT eCW1 ([facility]) ferric carboxymaltose 50 MG/ML Injectable Solution [In jectafer] 11/14/2020 12:00:00 AM EDT eCW1 ([facility]) Mupirocin 0.02 MG/MG Topical Ointment 11/14/2020 12:00:00 AM EDT eCW1 ([facility]) Mupirocin 0.02 MG/MG Topical Ointment 11/14/2020 12:00:00 AM EDT eCW1 ([facility]) ferric carboxymaltose 50 MG/ML Injectable Solution [In jectafer] 11/14/2020 12:00:00 AM EDT eCW1 ([facility]) Mupirocin 0.02 MG/MG Topical Ointment 11/14/2020 12:00:00 AM EDT eCW1 ([facility]) ferric carboxymaltose 50 MG/ML Injectable Solution [In jectafer] 11/14/2020 12:00:00 AM EDT eCW1 ([facility]) Mupirocin 0.02 MG/MG Topical Ointment 11/14/2020 12:00:00 AM EDT eCW1 ([facility]) ferric carboxymaltose 50 MG/ML Injectable Solution [In jectafer] 11/14/2020 12:00:00 AM EDT eCW1 ([facility]) Mupirocin 0.02 MG/MG Topical Ointment 11/14/2020 12:00:00 AM EDT eCW1 ([facility]) ferric carboxymaltose 50 MG/ML Injectable Solution [In jectafer] 11/14/2020 12:00:00 AM EDT eCW1 ([facility]) Mupirocin 0.02 MG/MG Topical Ointment 11/14/2020 12:00:00 AM EDT eCW1 ([facility]) ferric carboxymaltose 50 MG/ML Injectable Solution [In jectafer] 11/14/2020 12:00:00 AM EDT eCW1 ([facility]) Mupirocin 0.02 MG/MG Topical Ointment 11/14/2020 12:00:00 AM EDT eCW1 ([facility]) ferric carboxymaltose 50 MG/ML Injectable Solution [In jectafer] 11/14/2020 12:00:00 AM EDT eCW1 ([facility]) Mupirocin 0.02 MG/MG Topical Ointment 11/14/2020 12:00:00 AM EDT eCW1 ([facility]) ferric carboxymaltose 50 MG/ML Injectable Solution [In jectafer] 11/14/2020 12:00:00 AM EDT eCW1 ([facility]) Blood Glucose Test - 11/03/2020 12:00:00 AM EDT eCW1 ([facility]) Lancets - 11/03/2020 12:00:00 AM EDT e CW1 ([facility]) Glucometer 11/03/2020 12:00:00 AM EDT e CW1 ([facility]) Glucometer 11/03/2020 12:00:00 AM EDT e CW1 ([facility]) Blood Glucose Test - 11/03/2020 12:00:00 AM EDT eCW1 ([facility]) Lancets - 11/03/2020 12:00:00 AM EDT e CW1 ([facility]) Blood Glucose Test - 11/03/2020 12:00:00 AM EDT eCW1 ([facility]) Lancets - 11/03/2020 12:00:00 AM EDT e CW1 ([facility]) Glucometer 11/03/2020 12:00:00 AM EDT e CW1 ([facility]) 60 ACTUAT Fluticasone propionate 0.25 MG /ACTUAT / salmeterol 0.05 MG/ACTUAT Dry Powder Inhaler [Advair] 07/07/2020 12:00:00 AM EDT eCW1 ([facility]) 60 ACTUAT Fluticasone propionate 0.25 MG /ACTUAT / salmeterol 0.05 MG/ACTUAT Dry Powder Inhaler [Advair] 07/07/2020 12:00:00 AM EDT eCW1 ([facility]) 60 ACTUAT Fluticasone propionate 0.25 MG /ACTUAT / salmeterol 0.05 MG/ACTUAT Dry Powder Inhaler [Advair] 07/07/2020 12:00:00 AM EDT eCW1 ([facility]) 60 ACTUAT Fluticasone propionate 0.25 MG /ACTUAT / salmeterol 0.05 MG/ACTUAT Dry Powder Inhaler [Advair] 07/07/2020 12:00:00 AM EDT eCW1 ([facility]) 60 ACTUAT Fluticasone propionate 0.25 MG /ACTUAT / salmeterol 0.05 MG/ACTUAT Dry Powder Inhaler [Advair] 07/07/2020 12:00:00 AM EDT eCW1 ([facility]) 60 ACTUAT Fluticasone propionate 0.25 MG /ACTUAT / salmeterol 0.05 MG/ACTUAT Dry Powder Inhaler [Advair] 07/07/2020 12:00:00 AM EDT eCW1 ([facility]) 60 ACTUAT Fluticasone propionate 0.25 MG /ACTUAT / salmeterol 0.05 MG/ACTUAT Dry Powder Inhaler [Advair] 07/07/2020 12:00:00 AM EDT eCW1 ([facility]) 60 ACTUAT Fluticasone propionate 0.25 MG /ACTUAT / salmeterol 0.05 MG/ACTUAT Dry Powder Inhaler [Advair] 07/07/2020 12:00:00 AM EDT eCW1 ([facility]) 60 ACTUAT Fluticasone propionate 0.25 MG /ACTUAT / salmeterol 0.05 MG/ACTUAT Dry Powder Inhaler [Advair] 07/07/2020 12:00:00 AM EDT eCW1 ([facility]) 60 ACTUAT Fluticasone propionate 0.25 MG /ACTUAT / salmeterol 0.05 MG/ACTUAT Dry Powder Inhaler [Advair] 07/07/2020 12:00:00 AM EDT eCW1 ([facility]) 60 ACTUAT Fluticasone propionate 0.25 MG /ACTUAT / salmeterol 0.05 MG/ACTUAT Dry Powder Inhaler [Advair] 07/07/2020 12:00:00 AM EDT eCW1 ([facility]) 60 ACTUAT Fluticasone propionate 0.25 MG /ACTUAT / salmeterol 0.05 MG/ACTUAT Dry Powder Inhaler [Advair] 07/07/2020 12:00:00 AM EDT eCW1 ([facility]) POLYETHYLENE GLYCOL 3350 142 MG/ML Oral Solution [Dawn lax] 05/26/2020 12:00:00 AM EDT eCW1 ([facility]) POLYETHYLENE GLYCOL 3350 142 MG/ML Oral Solution [Dawn lax] 05/26/2020 12:00:00 AM EDT eCW1 ([facility]) POLYETHYLENE GLYCOL 3350 142 MG/ML Oral Solution [Dawn lax] 05/26/2020 12:00:00 AM EDT eCW1 ([facility]) POLYETHYLENE GLYCOL 3350 142 MG/ML Oral Solution [Dawn lax] 05/26/2020 12:00:00 AM EDT eCW1 ([facility]) POLYETHYLENE GLYCOL 3350 142 MG/ML Oral Solution [Dawn lax] 05/26/2020 12:00:00 AM EDT eCW1 ([facility]) POLYETHYLENE GLYCOL 3350 142 MG/ML Oral Solution [Dawn lax] 05/26/2020 12:00:00 AM EDT eCW1 ([facility]) POLYETHYLENE GLYCOL 3350 142 MG/ML Oral Solution [Dawn lax] 05/26/2020 12:00:00 AM EDT eCW1 ([facility]) POLYETHYLENE GLYCOL 3350 142 MG/ML Oral Solution [Dawn lax] 05/26/2020 12:00:00 AM EDT eCW1 ([facility]) POLYETHYLENE GLYCOL 3350 142 MG/ML Oral Solution [Dawn lax] 05/26/2020 12:00:00 AM EDT eCW1 ([facility]) POLYETHYLENE GLYCOL 3350 142 MG/ML Oral Solution [Dawn lax] 05/26/2020 12:00:00 AM EDT eCW1 ([facility]) Cyclobenzaprine hydrochloride 10 MG Oral Tablet 02/07/2020 12:00:00 AM EST eCW1 ([facility]) Cyclobenzaprine hydrochloride 10 MG Oral Tablet 02/07/2020 12:00:00 AM EST eCW1 ([facility]) Cyclobenzaprine hydrochloride 10 MG Oral Tablet 02/07/2020 12:00:00 AM EST eCW1 ([facility]) Cyclobenzaprine hydrochloride 5 MG Oral Tablet 02/07/2020 12:00:00 AM EST eCW1 ([facility]) Amitriptyline Hydrochloride 25 MG Oral Tablet 12/06/2019 12:00:00 A M EDT eCW1 ([facility]) Amitriptyline Hydrochloride 25 MG Oral Tablet 12/06/2019 12:00:00 A M EDT eCW1 ([facility]) Amitriptyline Hydrochloride 25 MG Oral Tablet 12/06/2019 12:00:00 A M EDT eCW1 ([facility]) Amitriptyline Hydrochloride 25 MG Oral Tablet 12/06/2019 12:00:00 A M EDT eCW1 ([facility]) Amitriptyline Hydrochloride 25 MG Oral Tablet 12/06/2019 12:00:00 A M EDT eCW1 ([facility]) Amitriptyline Hydrochloride 25 MG Oral Tablet 12/06/2019 12:00:00 A M EDT eCW1 ([facility]) Alprazolam 1 MG Oral Tablet MARILIA ([facility]) Amoxicillin 500 MG / Clavulanate 125 MG Oral Tablet [facility] ([facility]) cefdinir 300 MG Oral Capsule [facility] ([facility]) Ciprofloxacin 250 MG Oral Tablet [facility] ([facility]) Doxycycline Monohydrate 100 MG Oral Capsule [facility] ([facility]) 0.3 ML Enoxaparin sodium 100 MG/ML Prefilled Syringe [facility] ([facility]) Estradiol 0.1 MG/ML Vaginal Cream [facility] ([facility]) glimepiride 1 MG Oral Tablet [facility] ([facility]) glimepiride 2 MG Oral Tablet [facility] ([facility]) Methylprednisolone 2 MG Oral Tablet [Medrol] [facility]ILIA ([facility]) Methylprednisolone 4 MG Oral Tablet [facility] ([facility]) Oxycodone Hydrochloride 5 MG Oral Tablet [facility] ([facility]) Acetaminophen 325 MG / Oxycodone Hydrochloride 5 MG Oral Tablet [facility] ([facility]) Prednisone 20 MG Oral Tablet [facility] ([facility]) tramadol hydrochloride 50 MG Oral Tablet [facility] ([facility]) glimepiride 1 MG Oral Tablet [facility] ([facility]) glimepiride 2 MG Oral Tablet [facility] ([facility]) 0.3 ML Enoxaparin sodium 100 MG/ML Prefilled Syringe [facility] ([facility]) Amoxicillin 500 MG / Clavulanate 125 MG Oral Tablet [facility] ([facility]) Ciprofloxacin 250 MG Oral Tablet [facility] ([facility]) Estradiol 0.1 MG/ML Vaginal Cream [facility] ([facility]) Doxycycline Monohydrate 100 MG Oral Capsule [facility] ([facility]) Methylprednisolone 2 MG Oral Tablet [Medrol] [facility] ([facility]) Methylprednisolone 4 MG Oral Tablet [facility] ([facility]) Oxycodone Hydrochloride 5 MG Oral Tablet [facility] ([facility]) tramadol hydrochloride 50 MG Oral Tablet [facility] ([facility]) Acetaminophen 325 MG / Oxycodone Hydrochloride 5 MG Oral Tablet [facility] ([facility]) Prednisone 20 MG Oral Tablet [facility] ([facility]) Alprazolam 1 MG Oral Tablet [facility] ([facility]) Amoxicillin 500 MG / Clavulanate 125 MG Oral Tablet [facility] ([facility]) cefdinir 300 MG Oral Capsule [facility] ([facility]) Ciprofloxacin 250 MG Oral Tablet [facility] ([facility]) Doxycycline Monohydrate 100 MG Oral Capsule [facility] ([facility]) 0.3 ML Enoxaparin sodium 100 MG/ML Prefilled Syringe [facility] ([facility]) Estradiol 0.1 MG/ML Vaginal Cream [facility] ([facility]) Methylprednisolone 2 MG Oral Tablet [Medrol] [facility] ([facility]) Methylprednisolone 4 MG Oral Tablet [facility] ([facility]) Oxycodone Hydrochloride 5 MG Oral Tablet [facility] ([facility]) Acetaminophen 325 MG / Oxycodone Hydrochloride 5 MG Oral Tablet [facility] ([facility]) Prednisone 20 MG Oral Tablet [facility] ([facility]) tramadol hydrochloride 50 MG Oral Tablet [facility] ([facility]) Alprazolam 1 MG Oral Tablet [facility] ([facility]) Amoxicillin 500 MG / Clavulanate 125 MG Oral Tablet [facility] ([facility]) cefdinir 300 MG Oral Capsule [facility] ([facility]) Ciprofloxacin 250 MG Oral Tablet [facility] ([facility]) Doxycycline Monohydrate 100 MG Oral Capsule [facility] ([facility]) 0.3 ML Enoxaparin sodium 100 MG/ML Prefilled Syringe [facility] ([facility]) Estradiol 0.1 MG/ML Vaginal Cream [facility] ([facility]) Methylprednisolone 2 MG Oral Tablet [Medrol] [facility] ([facility]) Methylprednisolone 4 MG Oral Tablet [facility] ([facility]) Oxycodone Hydrochloride 5 MG Oral Tablet [facility] ([facility]) Acetaminophen 325 MG / Oxycodone Hydrochloride 5 MG Oral Tablet [facility] ([facility]) Prednisone 20 MG Oral Tablet [facility] ([facility]) tramadol hydrochloride 50 MG Oral Tablet [facility] ([facility]) Alprazolam 1 MG Oral Tablet [facility] ([facility]) Amoxicillin 500 MG / Clavulanate 125 MG Oral Tablet [facility] ([facility]) cefdinir 300 MG Oral Capsule [facility] ([facility]) Ciprofloxacin 250 MG Oral Tablet [facility] ([facility]) Doxycycline Monohydrate 100 MG Oral Capsule [facility] ([facility]) 0.3 ML Enoxaparin sodium 100 MG/ML Prefilled Syringe [facility] ([facility]) Estradiol 0.1 MG/ML Vaginal Cream [facility] ([facility]) Methylprednisolone 2 MG Oral Tablet [Medrol] [facility] ([facility]) Methylprednisolone 4 MG Oral Tablet [facility] ([facility]) Oxycodone Hydrochloride 5 MG Oral Tablet [facility] ([facility]) Acetaminophen 325 MG / Oxycodone Hydrochloride 5 MG Oral Tablet [facility] ([facility]) Prednisone 20 MG Oral Tablet [facility] ([facility]) tramadol hydrochloride 50 MG Oral Tablet [facility] ([facility]) Alprazolam 1 MG Oral Tablet [facility] ([facility]) Amoxicillin 500 MG / Clavulanate 125 MG Oral Tablet MARLIIA ([facility]) cefdinir 300 MG Oral Capsule [facility] ([facility]) Ciprofloxacin 250 MG Oral Tablet [facility] ([facility]) Doxycycline Monohydrate 100 MG Oral Capsule [facility] ([facility]) 0.3 ML Enoxaparin sodium 100 MG/ML Prefilled Syringe [facility] ([facility]) Estradiol 0.1 MG/ML Vaginal Cream [facility] ([facility]) Methylprednisolone 2 MG Oral Tablet [Medrol] [facility] ([facility]) Methylprednisolone 4 MG Oral Tablet [facility] ([facility]) Oxycodone Hydrochloride 5 MG Oral Tablet [facility] ([facility]) Acetaminophen 325 MG / Oxycodone Hydrochloride 5 MG Oral Tablet [facility] ([facility]) Prednisone 20 MG Oral Tablet [facility] ([facility]) tramadol hydrochloride 50 MG Oral Tablet [facility] ([facility]) Amoxicillin 500 MG / Clavulanate 125 MG Oral Tablet [facility] ([facility]) Ciprofloxacin 250 MG Oral Tablet [facility] ([facility]) Cyclobenzaprine hydrochloride 5 MG Oral Tablet [facility] ([facility]) Doxycycline Monohydrate 100 MG Oral Capsule [facility] ([facility]) 0.3 ML Enoxaparin sodium 100 MG/ML Prefilled Syringe [facility] ([facility]) Estradiol 0.1 MG/ML Vaginal Cream [facility] ([facility]) glimepiride 1 MG Oral Tablet [facility] ([facility]) Methylprednisolone 2 MG Oral Tablet [Medrol] [facility] ([facility]) Methylprednisolone 4 MG Oral Tablet [facility] ([facility]) Oxycodone Hydrochloride 5 MG Oral Tablet [facility] ([facility]) Acetaminophen 325 MG / Oxycodone Hydrochloride 5 MG Oral Tablet [facility] ([facility]) Prednisone 20 MG Oral Tablet [facility] ([facility]) tramadol hydrochloride 50 MG Oral Tablet [facility] ([facility]) Amoxicillin 500 MG / Clavulanate 125 MG Oral Tablet [facility] ([facility]) Ciprofloxacin 250 MG Oral Tablet [facility] ([facility]) Cyclobenzaprine hydrochloride 5 MG Oral Tablet [facility] ([facility]) Doxycycline Monohydrate 100 MG Oral Capsule [facility] ([facility]) 0.3 ML Enoxaparin sodium 100 MG/ML Prefilled Syringe [facility] ([facility]) Estradiol 0.1 MG/ML Vaginal Cream [facility] ([facility]) glimepiride 1 MG Oral Tablet [facility] ([facility]) Methylprednisolone 2 MG Oral Tablet [Medrol] [facility] ([facility]) Methylprednisolone 4 MG Oral Tablet [facility] ([facility]) Oxycodone Hydrochloride 5 MG Oral Tablet [facility] ([facility]) Acetaminophen 325 MG / Oxycodone Hydrochloride 5 MG Oral Tablet [facility] ([facility]) Prednisone 20 MG Oral Tablet [facility] ([facility]) tramadol hydrochloride 50 MG Oral Tablet [facility] ([facility]) Amoxicillin 500 MG / Clavulanate 125 MG Oral Tablet [facility] ([facility]) Ciprofloxacin 250 MG Oral Tablet [facility] ([facility]) Doxycycline Monohydrate 100 MG Oral Capsule [facility] ([facility]) 0.3 ML Enoxaparin sodium 100 MG/ML Prefilled Syringe [facility] ([facility]) Estradiol 0.1 MG/ML Vaginal Cream [facility] ([facility]) glimepiride 1 MG Oral Tablet [facility] ([facility]) glimepiride 2 MG Oral Tablet [facility] ([facility]) Methylprednisolone 2 MG Oral Tablet [Medrol] [facility] ([facility]) Methylprednisolone 4 MG Oral Tablet [facility] ([facility]) Oxycodone Hydrochloride 5 MG Oral Tablet [facility] ([facility]) Acetaminophen 325 MG / Oxycodone Hydrochloride 5 MG Oral Tablet [facility] ([facility]) Prednisone 20 MG Oral Tablet [facility] ([facility]) tramadol hydrochloride 50 MG Oral Tablet [facility] ([facility]) Amoxicillin 500 MG / Clavulanate 125 MG Oral Tablet [facility] ([facility]) Ciprofloxacin 250 MG Oral Tablet [facility] ([facility]) Doxycycline Monohydrate 100 MG Oral Capsule [facility] ([facility]) 0.3 ML Enoxaparin sodium 100 MG/ML Prefilled Syringe [facility] ([facility]) Estradiol 0.1 MG/ML Vaginal Cream [facility] ([facility]) glimepiride 1 MG Oral Tablet [facility] ([facility]) glimepiride 2 MG Oral Tablet [facility] ([facility]) Methylprednisolone 2 MG Oral Tablet [Medrol] [facility] ([facility]) Methylprednisolone 4 MG Oral Tablet [facility] ([facility]) Oxycodone Hydrochloride 5 MG Oral Tablet [facility] ([facility]) Acetaminophen 325 MG / Oxycodone Hydrochloride 5 MG Oral Tablet [facility] ([facility]) Prednisone 20 MG Oral Tablet [facility] ([facility]) tramadol hydrochloride 50 MG Oral Tablet [facility] ([facility])
--- OUTSIDE RECORDS SUMMARY | 2021-01-23 17:48 | CCD ---
Author Author [facility] Address Unknown Phone Unavailable Care Team Providers Care Four Roll Calender Operator Name Role Phone Jean-Pierre Ling MD Unavailable [...] Michael RPA C Unavailable Unavailable Charlebois, A Michale RPA C Unavailable Unavailable Charlebois, A Michael [...] Michael RPA C Unavailable Unavailable Charlebois, A Imchael RPA C Unavailable Unavailable Charlebois, A Michael [...] Unavailable Rojo, M Barratt PA Unavailable Unavailable Rjoo, M Barratt PA Unavailable Unavailable Rojo, M [...] Gao MD Unavailable Unavailable Jumalon, M Mar BOILER SHOP SUPERVISOR Unavailable Unavailable Jumalon, M Mar BOILER SHOP SUPERVISOR Unavailable Unavailable Jumalon, M Mar BOILER SHOP SUPERVISOR Unavailable Unavailable Jumalon, M Mar BOILER SHOP SUPERVISOR Unavailable Unavailable Jumalon, M Mar BOILER SHOP SUPERVISOR Unavailable Unavailable Jumalon, M Mar BOILER SHOP SUPERVISOR Unavailable Unavailable Jumalon, M Mar BOILER SHOP SUPERVISOR Unavailable Unavailable Jumalon, M Mar BOILER SHOP SUPERVISOR Unavailable Unavailable Jumalon, M Mar BOILER SHOP SUPERVISOR Unavailable Unavailable Jumalon, M Mar BOILER SHOP SUPERVISOR Unavailable Unavailable Jumalon, M Mar BOILER SHOP SUPERVISOR Unavailable Unavailable Jumalon, M Mar BOILER SHOP SUPERVISOR Unavailable Unavailable Jumalon, M Mar BOILER SHOP SUPERVISOR Unavailable Unavailable Jumalon, M Mar BOILER SHOP SUPERVISOR Unavailable Unavailable Jumalon, M Mar BOILER SHOP SUPERVISOR Unavailable Unavailable Jumalon, M Mar BOILER SHOP SUPERVISOR Unavailable Unavailable Jumalon, M Mar BOILER SHOP SUPERVISOR Unavailable Unavailable Jumalon, M Mar BOILER SHOP SUPERVISOR Unavailable Unavailable Jumalon, M Mar BOILER SHOP SUPERVISOR Unavailable Unavailable Jumalon, M Mar BOILER SHOP SUPERVISOR Unavailable Unavailable Jumalon, M Mar BOILER SHOP SUPERVISOR Unavailable Unavailable Jumalon, M Mar BOILER SHOP SUPERVISOR Unavailable Unavailable Jumalon, M Mar BOILER SHOP SUPERVISOR Unavailable Unavailable Jumalon, M Mar BOILER SHOP SUPERVISOR Unavailable Unavailable Jumalon, M Mar BOILER SHOP SUPERVISOR Unavailable Unavailable Jumalon, M Mar BOILER SHOP SUPERVISOR Unavailable Unavailable Jumalon, M Mar BOILER SHOP SUPERVISOR Unavailable Unavailable Jumalon, M Mar BOILER SHOP SUPERVISOR Unavailable Unavailable Jumalon, M Mar BOILER SHOP SUPERVISOR Unavailable Unavailable Jumalon, M Mar BOILER SHOP SUPERVISOR Unavailable Unavailable Rechlin, P Andrea DO Unavailable [...] Forest, Temitope Amira Unavailable Unavailable Forest, Temitope Amiar Unavailable Unavailable Forest, Temitope Amira Unavailable Unavailable [...] is protected by Article 27-F of the [facility] Public Health law. If you continue you may have access to information: Regarding HIV / AIDS; Provided by facilities licensed or operated by the [facility] Office of Mental Health; or Provided by the [facility] Office for People With Developmental Disabilities. If such information is present, then the following [facility] mandated warning applies: This information [...] Description Data Source(s) Unknown Unknown Problem [facility], ) sister age 48 and another age 59 alive Encounters Encounter Providers Location Date Indications Data Source(s ) Unknown [address] [facility] [id number] 01/20/2021 12:00:00 AM EST eCW1 ([facility]) Unknown [address] [facility] [address] 01/19/2021 12:00:00 AM EST eCW1 ([facility]) Unknown [address] [facility] Y [address] 01/16/2021 12:00:00 AM EST eCW1 ([facility]) Unknown [address] [facility] Y [address] 01/16/2021 12:00:00 AM EST eCW1 ([facility]) Unknown [address] [facility] [address] 01/14/2021 12:00:00 AM EST eCW1 ([facility]) Unknown [address] [facility] Y [address] 01/01/2021 12:00:00 AM EDT eCW1 ([facility] [place]) Unknown [address] [facility] Y [address] 12/29/2020 12:00:00 AM EDT eCW1 ([facility]) Unknown [address] [facility] Y [address] 12/26/2020 12:00:00 AM EDT eCW1 ([facility]) [place] [address] [facility] [place] [address] 12/19/2020 12:00:00 AM EDT eCW1 ([facility]) [place] [address] [facility] [place] [address] 12/19/2020 12:00:00 AM EDT eCW1 ([facility]) Unknown [address] [facility] [place] [address] 12/19/2020 12:00:00 AM EDT eCW1 ([facility]) Unknown [address] [facility] [place] [address] 12/16/2020 12:00:00 AM EDT eCW1 ([facility]) Unknown [address] [facility] [place] [address] 12/15/2020 12:00:00 AM EDT eCW1 ([facility]) Unknown [address] [facility] [place] [address] 12/05/2020 12:00:00 AM EDT eCW1 ([facility]) Unknown [address] [facility] [place] [address] 11/18/2020 12:00:00 AM EDT eCW1 ([facility]) Unknown [address] [facility] [place] [address] 11/17/2020 12:00:00 AM EDT eCW1 ([facility]) Outpatient [address] [facility] [place] [address] 11/14/2020 12:00:00 AM EDT eCW1 ([facility]) Unknown [address] [facility] [place] [address] 11/14/2020 12:00:00 AM EDT eCW1 ([facility]) Unknown [address] [facility] [place] [address] 11/14/2020 12:00:00 AM EDT eCW1 ([facility]) Unknown [address] [facility] Y [address] 11/13/2020 12:00:00 AM EDT eCW1 ([facility]) Unknown [address] [facility] Y [address] 11/04/2020 12:00:00 AM EDT eCW1 ([facility]) Unknown [address] [facility] Y [address] 11/03/2020 12:00:00 AM EDT eCW1 ([facility]) Oleg Ling MD: [address] [facility] [address], [place] [address], Ph. Attender: Oleg CHAIREZ - [facility] 10/24/2020 12:00:00 AM EDT MARILIA ([facility]) Office Visit Attender: Bren RODRIGES Physical Therapy 01:15:00 PM EDT MEDENT ([facility]) Outpatient [address] [facility] Y [address] 10/21/2020 12:00:00 AM EDT eCW1 ([facility]) Unknown [address] [facility] Y [address] 10/21/2020 12:00:00 AM EDT eCW1 ([facility]) Oleg Ling MD: [address] [facility] [address], [place] [address], Ph. [phone] Attender: Oleg CHAIREZ - [facility] Office 10/20/2020 12:00:00 AM EDT MARILIA ([facility]) Oleg Ling MD: [address], [place] [address], Ph. [phone] Attender: Oleg CHAIREZ [facility] 10/20/2020 12:00:00 AM EDT MARILIA ([facility]) Outpatient Attender: Michaelmarco antonio Glover/Riri/Angel adame/Avery 10/15/2020 01:00:00 PM EDT MEDREMY ([facility] NAKITA Marcial) Mar Smith, BECK TENDER: [address], [place] [address], Ph. Attender: Mar Smith [facility] - [facility] 10/15/2020 12:00:00 AM EDT ATHE NA ([facility]) Mar Smith, BECK TENDER: [address], [place] [address], Ph. Attender: Mar Smith [facility] 10/15/2020 12:00:00 AM EDT ATHJaime NA ([facility]) Mar Smith, BECK TENDER: [address], [place] [address], Ph. Attender: Mar Smith [facility] 10/15/2020 12:00:00 AM EDT ATHJaime NA ([facility]) Outpatient Attender: Andrea Sterling/Riri/Mil/Joe ndl 10/08/2020 09:30:00 AM EDT MEDREMY ([facility] Danica spears, NAKITA) Unknown [address] [facility], Y [address] 10/07/2020 12:00:00 AM EDT eCW1 ([facility]) Outpatient [address] [facility] Y [address] 09/22/2020 12:00:00 AM EDT eCW1 ([facility]) Unknown [address] [facility] Y [address] 09/04/2020 12:00:00 AM EDT eCW1 ([facility]) Unknown [address] [facility] [place] [address] 08/28/2020 12:00:00 AM EDT eCW1 ([facility]) Unknown [address] [facility] [place] [address] 08/27/2020 12:00:00 AM EDT eCW1 ([facility]) Unknown [address] [facility] [place] [address] 08/25/2020 12:00:00 AM EDT eCW1 ([facility]) Unknown [address] [facility] [place] [address] 08/14/2020 12:00:00 AM EDT eCW1 ([facility]) Outpatient Attender: Amira Garg 08/11/2020 11:00:00 PM E DT Acute Care Occupational Therapist [facility] Acute Care Occupational Therapist Outpatient Attender: Amira Harrell/ [facility] 04:00:00 PM EDT MEDENT ([facility]) Oleg Ling MD: [address] [facility] [address], [facility] [place] [address], Ph. [phone] Attender: Oleg Ling MD [place] - [facility] 08/11/2020 12:00:00 AM EDT MARILIA ([facility]) Oleg Ling MD: [address] [facility] [address], [place], [place] [address], Ph. [phone] Attender: Oleg Ling MD [facility] 08/11/2020 12:00:00 AM EDT MARILIA ([facility]) Oleg Ling MD: [address] [facility] [address], [facility] [place] [facility] [place] [address], Ph. [phone] Attender: Oleg CHAIREZ [facility] 08/11/2020 12:00:00 AM EDT MARILIA ([facility]) Oleg Ling MD: [address], [place] [address], Ph. [phone] Attender: Oleg Ling MD [place] - [facility] 08/11/2020 12:00:00 AM EDT MARILIA ([facility]) Mar Smith, BECK TENDER: [address], [address], [place] [address], Ph. Attender: Mar Francisyue [facility] - [facility] 08/06/2020 12:00:00 AM EDT VANCE FLORES ([facility]) Mar Smith, BECK TENDER: [address], [place] [address], Ph. Attender: Mar Titoyue [facility] - [facility] 08/06/2020 12:00:00 AM EDT ATHE NA ([facility]) Mar Smith, BECK TENDER: [address], [place] [address], Ph. Attender: Mar Smith [facility] - [facility] 08/06/2020 12:00:00 AM EDT ATHE NA ([facility]) Mar Smith, BECK TENDER: [address], [place] [address], Ph. Attender: Mar Diyadelmis [facility] 08/06/2020 12:00:00 AM EDT ATHE NA ([facility]) Mar Rodriguez Sarah, BECK TENDER: [address], [place] [address], Ph. Attender: Mar Francisyue YARBROUGH [place] - [facility] - Main Office 08/06/2020 12:00:00 AM EDT ATHJaime FLORES ([facility]) Office Visit Attender: Bren RODRIGES Physical Therapy 10:30:00 AM EDT EVELYNE ([facility]) Outpatient Attender: Monica Bal MD 07/14/2020 11:00:00 PM EDT Acute Care Occupational Therapist [facility] Acute Care Occupational Therapist Outpatient Attender: Monica Bal MD [place]/ Steffen Martin ology 07/14/2020 03:30:00 PM EDT MEDENT ([facility]) Unknown [address] [facility] [place] [address] 07/08/2020 12:00:00 AM EDT eCW1 ([facility]) Unknown [address] [facility] Y [address] 07/07/2020 12:00:00 AM EDT eCW1 ([facility]) Outpatient [address] [facility] N Y [address] 07/04/2020 12:00:00 AM EDT eCW1 ([facility]) Unknown [address] [facility] [place] [address] 07/04/2020 12:00:00 AM EDT eCW1 ([facility]) Unknown [address] [facility] [place] [address] 07/04/2020 12:00:00 AM EDT eCW1 ([facility]) Unknown [address] [facility] N Y [address] 07/04/2020 12:00:00 AM EDT eCW1 ([facility]) Unknown [address] [facility] [place] [address] 07/03/2020 12:00:00 AM EDT eCW1 ([facility]) Unknown [address] [facility] Y [address] 06/30/2020 12:00:00 AM EDT eCW1 ([facility]) Unknown [address] [facility] [place] [address] 06/25/2020 12:00:00 AM EDT eCW1 ([facility]) Unknown [address] [facility] [place] [address] 06/19/2020 12:00:00 AM EDT eCW1 ([facility]) Unknown [address] [facility] [place] [address] 06/19/2020 12:00:00 AM EDT eCW1 ([facility]) Unknown [address] [facility] [place] [address] 06/17/2020 12:00:00 AM EDT eCW1 ([facility]) Unknown [address] [facility] [place] [address] 06/13/2020 12:00:00 AM EDT eCW1 ([facility]) Unknown [address] [facility] [place] [address] 06/09/2020 12:00:00 AM EDT eCW1 ([facility]) Unknown [address] [facility] [place] [address] 06/04/2020 12:00:00 AM EDT eCW1 ([facility]) Unknown [address] [facility] [place] [address] 05/26/2020 12:00:00 AM EDT eCW1 ([facility]) Outpatient [address] [facility] [place] [address] 05/26/2020 12:00:00 AM EDT eCW1 ([facility]) Unknown [address] [facility] [place] [address] 05/20/2020 12:00:00 AM EDT eCW1 ([facility]) Unknown [address] [facility] [place] [address] 05/15/2020 12:00:00 AM EST eCW1 ([facility]) Outpatient [address] [facility] [address] [address] 05/12/2020 12:00:00 AM EST eCW1 ([facility]) Mar Smith, BECK TENDER: [address], [place] [address], Ph. Attender: Mar Smith [facility] - [facility] 04/15/2020 12:00:00 AM EST ATHE NA ([facility]) Mar Smith, BECK TENDER: [address], [place] [address], Ph. Attender: Mar Smith [facility] 04/15/2020 12:00:00 AM EST ATHE NA ([facility]) Mar Smith, BECK TENDER: [address], [place] [address], Ph. Attender: Mar Smith [facility] 04/15/2020 12:00:00 AM EST ATHE NA ([facility]) Mar Smith, BECK TENDER: [address], [place] [address], Ph. Attender: Mar Smith [facility] - [facility] 04/15/2020 12:00:00 AM EST ATHE NA ([facility]) Mar Smith, BECK TENDER: [address], [place] [address], Ph. Attender: Mar Smith [facility] 04/15/2020 12:00:00 AM EST ATHE NA ([facility]) Mar Rodriguez Diyadelmis, BECK TENDER: [address], [place] [address], Ph. Attender: Mar YARBROUGH [place] - [facility] 04/15/2020 12:00:00 AM EST ATHE NA ([facility]) Outpatient Attender: Monica Bal MD 04/07/2020 09:05 :00 PM EST [facility] Outpatient Attender: Monica Bal MD [place]/ A.MKelsiePKelsie torres 04/07/2020 12:15:00 PM EST MEDENT ([facility] Oleg Ling MD: [address], [facility] [place] [address], Ph. Attender: Oleg Ling MD [facility] 03/31/2020 12:00:00 AM EST MARILIA ([facility]) Oleg Ling MD: [address], [place] [address], Ph. Attender: Oleg Ling MD [facility] 03/31/2020 12:00:00 AM EST MARILIA ([facility]) Oleg Ling MD: [address], [facility] [place] [address], Ph. Attender: Oleg Ling MD [place] - [facility] 03/31/2020 12:00:00 AM EST MARILIA ([facility]) Oleg Ling MD: [address], [facility] [place] [address], Ph. Attender: Oleg Ling MD [facility] 03/31/2020 12:00:00 AM EST MARILIA ([facility]) Oleg Ling MD: [address], [place] [address], Ph. Attender: Oleg Ling MD [place] - [facility] 03/31/2020 12:00:00 AM EST MARILIA ([facility]) Oleg Ling MD: [address], [place] [address], Ph. Attender: Oleg Ling MD [place] - [facility] 03/31/2020 12:00:00 AM EST MARILIA ([facility]) Oleg Ling MD: [address], [place] [address], Ph. Attender: Oleg Ling MD [place] - [facility] 03/31/2020 12:00:00 AM EST MARILIA ([facility]) OFFICE OUTPATIENT VISIT 15 MINUTES Attender: rBen RODRIGES Physical Therapy 03/27/2020 12:45:00 PM EST MEDENT ([facility]) Oleg Ling MD: [address], [place] [address], Ph. [phone] Attender: Oleg Ling MD [place] - [facility] 03/26/2020 12:00:00 AM EST MARILIA ([facility]) Oleg Ling MD: [address], [address] [place], [place] [address], Ph. [phone] Attender: Oleg Ling MD [place] - [facility] 03/26/2020 12:00:00 AM EST MARILIA ([facility]) Oleg Ling MD: [address], [place] [address], Ph. [phone] Attender: Oleg CHAIREZ - [facility] 03/26/2020 12:00:00 AM EST MARILIA ([facility]) Oleg Ling MD: [address], [place] [address], Ph. [phone] Attender: Oleg Ling MD [place] - [facility] 03/26/2020 12:00:00 AM EST MARILIA ([facility]) Oleg iLng MD: [address], [facility] [place] [address], Ph. [phone] Attender: Oleg Ling MD [place] - [facility] 03/26/2020 12:00:00 AM EST MARILIA ([facility]) Oleg Ling MD: [address], [facility] [place] [address], Ph. [phone] Attender: Oleg Ling MD [place] - [facility] 03/26/2020 12:00:00 AM EST MARILIA ([facility]) Oleg Ling MD: [address], [facility] [place] [facility] [place] [address], Ph. [phone] Attender: Oleg Ling MD [place] - [facility] 03/26/2020 12:00:00 AM EST MARILIA ([facility]) Oleg Ling MD: [address], [place] [address], Ph. [phone] Attender: Oleg Ling MD [place] - [facility] 03/26/2020 12:00:00 AM EST MARILIA ([facility]) Mar Smith, BECK TENDER: [address], [facility] [place] [address], Ph. [facility] 03/18/2020 12:00:00 AM EST ATHE NA ([facility]) Mra Smith, BECK TENDER: [address], [place] [address], Ph. Attender: Mar Smith [facility] 03/18/2020 12:00:00 AM EST ATHE NA ([facility]) Mar Smith, BECK TENDER: [address], [place] [address], Ph. Attender: Mar Smith [facility] 03/18/2020 12:00:00 AM EST ATHE NA ([facility]) Mar Smith, BECK TENDER: [address], [facility] [place] [address], Ph. Attender: Mar Smith [facility] 03/18/2020 12:00:00 AM EST ATHE NA ([facility]) Mar Smith, BECK TENDER: [address], [place] [address], Ph. Attender: Mar Smith [facility] 03/18/2020 12:00:00 AM EST ATHE NA ([facility]) Mar Smith, BECK TENDER: [address], [place] [address], Ph. Attender: Mar Smith [facility] 03/18/2020 12:00:00 AM EST ATHE NA ([facility]) Mar Smith, BECK TENDER: [address], [place] [address], Ph. Attender: Mar Smith [facility] - [facility] 03/18/2020 12:00:00 AM EST ATHE NA ([facility]) Mar Smith, BECK TENDER: [address], [place] [address], Ph. Attender: Mar Smith [facility] - [facility] 03/18/2020 12:00:00 AM EST ATHE NA ([facility]) Mar Smith, BECK TENDER: [address], [place] [address], Ph. Attender: Mar Smith [facility] - [facility] 03/18/2020 12:00:00 AM EST ATHE NA ([facility]) Unknown [address] [facility] [place] [address] 03/14/2020 12:00:00 AM EST eCW1 ([facility]) Unknown [address] [facility] [place] [address] 03/13/2020 12:00:00 AM EST eCW1 ([facility]) Outpatient Attender: Andrea Sterling/Riri/Mil/Joe ndprabha 03/12/2020 09:00:00 AM EST MEDENT ([facility] Mar Smith, BECK TENDER: [address], [place] [address], Ph. Attender: Mar Smith [facility] - [facility] 02/14/2020 12:00:00 AM EST ATHE NA ([facility]) Mar Smith, BECK TENDER: [address], [place] [address], Ph. Attender: Mar Smith [facility] - [facility] 02/14/2020 12:00:00 AM EST ATHE NA ([facility]) Mar Smith, BECK TENDER: [address], [place] [address], Ph. Attender: Mar Smith [facility] - [facility] 02/14/2020 12:00:00 AM EST ATHE NA ([facility]) Mar Smith, BECK TENDER: [address], [place] [address], Ph. Attender: Mar Farncisyue [facility] - [facility] [facility] 02/14/2020 12:00:00 AM EST ATHE NA ([facility]) Mar Smith, BECK TENDER: [id number], [place] [address], Ph. Attender: Mar Smith [facility] - [facility] 02/14/2020 12:00:00 AM EST ATHE NA ([facility]) Mar Smith, BECK TENDER: [address], [place] [address], Ph. Attender: Mar Smith [facility] - [facility] 02/14/2020 12:00:00 AM EST ATHE NA ([facility]) Mar Smith, BECK TENDER: [address], [place] [address], Ph. Attender: Mar Smith [facility] - [facility] 02/14/2020 12:00:00 AM EST ATHE NA ([facility]) Mar Smith, BECK TENDER: [address], [place] [address], Ph. Attender: Mar Smith [facility] - [facility] - [facility] 02/14/2020 12:00:00 AM EST ATHE NA ([facility]) Mar Smith, BECK TENDER: [address], [place] [address], Ph. Attender: Mar Smith [facility] - [facility] - [facility] 02/14/2020 12:00:00 AM EST ATHE NA ([facility]) Mar Smith, BECK TENDER: [address], [address], [place] [address], Ph. Attender: Mra Smith [facility] - [facility] - [facility] 02/14/2020 12:00:00 AM EST ATHE NA ([facility]) [place] [address] [facility] [address] 02/13/2020 12:00:00 AM EST eCW1 ([facility]) [place] [address] [facility] [address] 02/06/2020 12:00:00 AM EST eCW1 ([facility]) Outpatient Attender: Amira Garg 01/10/2020 11:00:00 PM E [facility] Outpatient Attender: Amira Harrell/ [facility] 12:30:00 PM EST [facility] Preadmit Attender: Cesario Gao MD 01/03/2020 12:00:00 AM EDT S/P R FEMUR FX [facility] S/P R FEMUR FX Outpatient Attender: Monica Bal MD 12/11/2019 11:00 :00 PM EDT [facility] [place] [address] [facility] [address] 12/06/2019 12:00:00 AM EDT eCW1 ([facility]) Unknown [address] [facility] [address] 12/05/2019 12:00:00 AM EDT eCW1 ([facility]) Oleg Ling MD: [address], [address], [place] [address], Ph. Attender: Oleg Ling MD [place] - [facility] 12/03/2019 12:00:00 AM EDT MARILIA ([facility]) Oleg Ling MD: [address], [address], [place] [address], Ph. Attender: Oleg Ling MD [place] - [facility] 12/03/2019 12:00:00 AM EDT MARILIA ([facility]) Oleg Ling MD: [address], [place] [address], Ph. Attender: Oleg CHAIREZ - [facility] 12/03/2019 12:00:00 AM EDT MARILIA ([facility]) Oleg Ling MD: [address], [place] [address], Ph. Attender: Oleg CHAIREZ - [facility] 12/03/2019 12:00:00 AM EDT MARILIA ([facility]) Oleg Ling MD: [address], [address], [place] [address], Ph. Attender: Oleg CHAIREZ - [facility] 12/03/2019 12:00:00 AM EDT MARILIA ([facility]) Oleg Ling MD: [address], [address], [place] [address], Ph. Attender: Oleg CHAIREZ - [facility] 12/03/2019 12:00:00 AM EDT MARILIA ([facility]) Oleg Ling MD: [address], [address], [place] [address], Ph. Attender: Oleg CHAIREZ - [facility] 12/03/2019 12:00:00 AM EDT MARILIA ([facility]) Oleg Ling MD: [address], [address], [place] [address], Ph. Attender: Oleg CHAIREZ - [facility] 12/03/2019 12:00:00 AM EDT MARILIA ([facility]) Oleg Ling MD: [address], [address], [place] [address], Ph. Attender: Oleg CHAIREZ - [facility] 12/03/2019 12:00:00 AM EDT MARILIA ([facility]) Oleg Ling MD: [address], [address], [place] [address], Ph. Attender: Oleg CHAIREZ - [facility] 12/03/2019 12:00:00 AM EDT MARILIA ([facility]) Oleg Ling MD: [address], [address], [place] [address], Ph. Attender: Oleg CHAIREZ - [facility] 12/03/2019 12:00:00 AM EDT MARILIA ([facility]) Oleg Ling MD: [address], [address], [place] [address], Ph. [phone] Attender: Oleg Ling MD [place] - [facility] 11/28/2019 12:00:00 AM EDT MARILIA ([facility]) Oleg Ling MD: [address], [address], [place] [address], Ph. [phone] Attender: Oleg Ling MD [place] - [facility] 11/28/2019 12:00:00 AM EDT MARILIA ([facility]) Oleg Ling MD: [address], [address], [place] [address], Ph. [phone] Attender: Oleg CHAIREZ - [facility] 11/28/2019 12:00:00 AM EDT MARILIA ([facility]) Oleg Ling MD: [address], [address], [place] [address], Ph. [phone] Attender: Oleg CHAIREZ - [facility] 11/28/2019 12:00:00 AM EDT MARILIA ([facility]) Oleg Ling MD: [address], [address], [place] [address], Ph. [phone] Attender: Oleg CHAIREZ - [facility] 11/28/2019 12:00:00 AM EDT MARILIA ([facility]) Oleg Ling MD: [address], [address], [place] [address], Ph. [phone] Attender: Oleg Ling MD [place] - [facility] 11/28/2019 12:00:00 AM EDT MARILIA ([facility]) Oleg Ling MD: [address], [address], [place] [address], Ph. [phone] Attender: Oleg CHAIREZ - [facility] 11/28/2019 12:00:00 AM EDT MARILIA ([facility]) Oleg Ling MD: [address], [address], [place] [address], Ph. [phone] Attender: Oleg Ling MD [place] - [facility] 11/28/2019 12:00:00 AM EDT MARILIA ([facility]) Oleg Ling MD: [address], [address], [place] [address], Ph. [phone] Attender: Oleg Ling MD CO - [facility] 11/28/2019 12:00:00 AM EDT MARILIA ([facility]) Oleg Ling MD: [address], [address], [place] [address], Ph. [phone] Attender: Oleg Ling MD CO - [facility] 11/28/2019 12:00:00 AM EDT MARILIA ([facility]) Oleg Ling MD: [address], [address], [place] [address], Ph. [phone] Attender: Oleg Ling MD CO - [facility] 11/28/2019 12:00:00 AM EDT MARILIA ([facility]) Oleg Ling MD: [address], [place] [address], Ph. [phone] Attender: Oleg Ling MD CO - [facility] 11/28/2019 12:00:00 AM EDT MARILIA ([facility]) Immunizations Vaccine Date Status Description Data Source(s) COVID-19 VACCINE Moderna 11/05/2020 12:00:00 AM EDT completed [facility] Vaccine Series Complete: YESThis Data wa s Submitted to [facility] Via [employer]. COVID-19 VACCINE Moderna 10/01/2020 12:00:00 AM EDT completed [facility] Vaccine Series Complete: NOThis Data was Submitted to [facility] Via [employer]. Medications Medication Brand Name Start Date Product Form Dose Route Admi nistrative Instructions Pharmacy Instructions Status Indications Reaction Description Data Source(s) celecoxib 200 MG Oral Capsule [Celebrex] CeleBREX 200 MG Dee eBREX 200 MG 01/16/2021 12:00:00 AM EST 1.0 {capsule_with_food} a ctive eCW1 ([facility]) celecoxib 200 MG Oral Capsule [Celebrex] CeleBREX 200 MG Dee eBREX 200 MG 01/16/2021 12:00:00 AM EST 1.0 {capsule_with_food} active CeleBREX 200 MG eCW1 ([facility]) celecoxib 200 MG Oral Capsule [Celebrex] CeleBREX 200 MG Dee eBREX 200 MG 01/16/2021 12:00:00 AM EST 1.0 {capsule_with_food} active CeleBREX 200 MG eCW1 ([facility]) NITROFURANTOIN, MACROCRYSTALS 25 MG / Ni trofurantoin, Monohydrate 75 MG Oral Capsule [Macrobid] Macrobid 100 MG Macrobid 100 MG 11/17/2020 12:00:00 AM EDT active Macrobid 100 MG eCW1 ([facility]) NITROFURANTOIN, MACROCRYSTALS 25 MG / Ni trofurantoin, Monohydrate 75 MG Oral Capsule [Macrobid] Macrobid 100 MG Macrobid 100 MG 11/17/2020 12:00:00 AM EDT active Macrobid 100 MG eCW1 ([facility]) NITROFURANTOIN, MACROCRYSTALS 25 MG / Ni trofurantoin, Monohydrate 75 MG Oral Capsule [Macrobid] Macrobid 100 MG Macrobid 100 MG 11/17/2020 12:00:00 AM EDT active Macrobid 100 MG eCW1 ([facility]) NITROFURANTOIN, MACROCRYSTALS 25 MG / Ni trofurantoin, Monohydrate 75 MG Oral Capsule [Macrobid] Macrobid 100 MG Macrobid 100 MG 11/17/2020 12:00:00 AM EDT active Macrobid 100 MG eCW1 ([facility]) NITROFURANTOIN, MACROCRYSTALS 25 MG / Ni trofurantoin, Monohydrate 75 MG Oral Capsule [Macrobid] Macrobid 100 MG Macrobid 100 MG 11/17/2020 12:00:00 AM EDT active Macrobid 100 MG eCW1 ([facility]) NITROFURANTOIN, MACROCRYSTALS 25 MG / Ni trofurantoin, Monohydrate 75 MG Oral Capsule [Macrobid] Macrobid 100 MG Macrobid 100 MG 11/17/2020 12:00:00 AM EDT active Macrobid 100 MG eCW1 ([facility]) NITROFURANTOIN, MACROCRYSTALS 25 MG / Ni trofurantoin, Monohydrate 75 MG Oral Capsule [Macrobid] Macrobid 100 MG Macrobid 100 MG 11/17/2020 12:00:00 AM EDT active Macrobid 100 MG eCW1 ([facility]) NITROFURANTOIN, MACROCRYSTALS 25 MG / Ni trofurantoin, Monohydrate 75 MG Oral Capsule [Macrobid] Macrobid 100 MG Macrobid 100 MG 11/17/2020 12:00:00 AM EDT active Macrobid 100 MG eCW1 ([facility]) NITROFURANTOIN, MACROCRYSTALS 25 MG / Ni trofurantoin, Monohydrate 75 MG Oral Capsule [Macrobid] Macrobid 100 MG Macrobid 100 MG 11/17/2020 12:00:00 AM EDT active Macrobid 100 MG eCW1 ([facility]) NITROFURANTOIN, MACROCRYSTALS 25 MG / Ni trofurantoin, Monohydrate 75 MG Oral Capsule [Macrobid] Macrobid 100 MG Macrobid 100 MG 11/17/2020 12:00:00 AM EDT active Macrobid 100 MG eCW1 ([facility]) NITROFURANTOIN, MACROCRYSTALS 25 MG / Ni trofurantoin, Monohydrate 75 MG Oral Capsule [Macrobid] Macrobid 100 MG Macrobid 100 MG 11/17/2020 12:00:00 AM EDT active Macrobid 100 MG eCW1 ([facility]) NITROFURANTOIN, MACROCRYSTALS 25 MG / Ni trofurantoin, Monohydrate 75 MG Oral Capsule [Macrobid] Macrobid 100 MG Macrobid 100 MG 11/17/2020 12:00:00 AM EDT active Macrobid 100 MG eCW1 ([facility]) NITROFURANTOIN, MACROCRYSTALS 25 MG / Ni trofurantoin, Monohydrate 75 MG Oral Capsule [Macrobid] Macrobid 100 MG Macrobid 100 MG 11/17/2020 12:00:00 AM EDT active Macrobid 100 MG eCW1 ([facility]) NITROFURANTOIN, MACROCRYSTALS 25 MG / Ni trofurantoin, Monohydrate 75 MG Oral Capsule [Macrobid] Macrobid 100 MG Macrobid 100 MG 11/17/2020 12:00:00 AM EDT active Macrobid 100 MG eCW1 ([facility]) NITROFURANTOIN, MACROCRYSTALS 25 MG / Ni trofurantoin, Monohydrate 75 MG Oral Capsule [Macrobid] Macrobid 100 MG Macrobid 100 MG 11/17/2020 12:00:00 AM EDT active Macrobid 100 MG eCW1 ([facility]) NITROFURANTOIN, MACROCRYSTALS 25 MG / Ni trofurantoin, Monohydrate 75 MG Oral Capsule [Macrobid] Macrobid 100 MG Macrobid 100 MG 11/17/2020 12:00:00 AM EDT active Macrobid 100 MG eCW1 ([facility]) NITROFURANTOIN, MACROCRYSTALS 25 MG / Ni trofurantoin, Monohydrate 75 MG Oral Capsule [Macrobid] Macrobid 100 MG Macrobid 100 MG 11/17/2020 12:00:00 AM EDT active eCW1 ([facility]) NITROFURANTOIN, MACROCRYSTALS 25 MG / Ni trofurantoin, Monohydrate 75 MG Oral Capsule [Macrobid] Macrobid 100 MG Macrobid 100 MG 11/17/2020 12:00:00 AM EDT active Macrobid 100 MG eCW1 ([facility]) Mupirocin 0.02 MG/MG Topical Ointment Mupirocin 2 % Mupiroci n 2 % 11/14/2020 12:00:00 AM EDT active Mupiroci n 2 % eCW1 ([facility]) Mupirocin 0.02 MG/MG Topical Ointment Mupirocin 2 % Mupiroci n 2 % 11/14/2020 12:00:00 AM EDT active Mupiroci n 2 % eCW1 ([facility]) Mupirocin 0.02 MG/MG Topical Ointment Mupirocin 2 % Mupiroci n 2 % 11/14/2020 12:00:00 AM EDT active Mupiroci n 2 % eCW1 ([facility]) Mupirocin 0.02 MG/MG Topical Ointment Mupirocin 2 % Mupiroci n 2 % 11/14/2020 12:00:00 AM EDT active Mupiroci n 2 % eCW1 ([facility]) ferric carboxymaltose 50 MG/ML Injectabl e Solution [Injectafer] Injectafer 750 MG/15ML Injectafer 750 MG/15ML 11/14/2020 12:00:00 AM EDT active Injectafer 750 MG/15ML eCW1 ([facility]) Mupirocin 0.02 MG/MG Topical Ointment Mupirocin 2 % Mupiroci n 2 % 11/14/2020 12:00:00 AM EDT active Mupiroci n 2 % eCW1 ([facility]) ferric carboxymaltose 50 MG/ML Injectabl e Solution [Injectafer] Injectafer 750 MG/15ML Injectafer 750 MG/15ML 11/14/2020 12:00:00 AM EDT active Injectafer 750 MG/15ML eCW1 ([facility]) ferric carboxymaltose 50 MG/ML Injectabl e Solution [Injectafer] Injectafer 750 MG/15ML Injectafer 750 MG/15ML 11/14/2020 12:00:00 AM EDT active Injectafer 750 MG/15ML eCW1 ([facility]) ferric carboxymaltose 50 MG/ML Injectabl e Solution [Injectafer] Injectafer 750 MG/15ML Injectafer 750 MG/15ML 11/14/2020 12:00:00 AM EDT active Injectafer 750 MG/15ML eCW1 ([facility]) Mupirocin 0.02 MG/MG Topical Ointment Mupirocin 2 % Mupiroci n 2 % 11/14/2020 12:00:00 AM EDT active Mupiroci n 2 % eCW1 ([facility]) Mupirocin 0.02 MG/MG Topical Ointment Mupirocin 2 % Mupiroci n 2 % 11/14/2020 12:00:00 AM EDT active Mupiroci n 2 % eCW1 ([facility]) ferric carboxymaltose 50 MG/ML Injectabl e Solution [Injectafer] Injectafer 750 MG/15ML Injectafer 750 MG/15ML 11/14/2020 12:00:00 AM EDT active Injectafer 750 MG/15ML eCW1 ([facility]) ferric carboxymaltose 50 MG/ML Injectabl e Solution [Injectafer] Injectafer 750 MG/15ML Injectafer 750 MG/15ML 11/14/2020 12:00:00 AM EDT active Injectafer 750 MG/15ML eCW1 ([facility]) ferric carboxymaltose 50 MG/ML Injectabl e Solution [Injectafer] Injectafer 750 MG/15ML Injectafer 750 MG/15ML 11/14/2020 12:00:00 AM EDT active Injectafer 750 MG/15ML eCW1 ([facility]) ferric carboxymaltose 50 MG/ML Injectabl e Solution [Injectafer] Injectafer 750 MG/15ML Injectafer 750 MG/15ML 11/14/2020 12:00:00 AM EDT active Injectafer 750 MG/15ML eCW1 ([facility]) Mupirocin 0.02 MG/MG Topical Ointment Mupirocin 2 % Mupiroci n 2 % 11/14/2020 12:00:00 AM EDT active Mupiroci n 2 % eCW1 ([facility]) Mupirocin 0.02 MG/MG Topical Ointment Mupirocin 2 % Mupiroci n 2 % 11/14/2020 12:00:00 AM EDT active Mupiroci n 2 % eCW1 ([facility]) ferric carboxymaltose 50 MG/ML Injectabl e Solution [Injectafer] Injectafer 750 MG/15ML Injectafer 750 MG/15ML 11/14/2020 12:00:00 AM EDT active Injectafer 750 MG/15ML eCW1 ([facility]) ferric carboxymaltose 50 MG/ML Injectabl e Solution [Injectafer] Injectafer 750 MG/15ML Injectafer 750 MG/15ML 11/14/2020 12:00:00 AM EDT active Injectafer 750 MG/15ML eCW1 ([facility]) Mupirocin 0.02 MG/MG Topical Ointment Mupirocin 2 % Mupiroci n 2 % 11/14/2020 12:00:00 AM EDT active Mupiroci n 2 % eCW1 ([facility]) ferric carboxymaltose 50 MG/ML Injectabl e Solution [Injectafer] Injectafer 750 MG/15ML Injectafer 750 MG/15ML 11/14/2020 12:00:00 AM EDT active Injectafer 750 MG/15ML eCW1 ([facility]) Mupirocin 0.02 MG/MG Topical Ointment Mupirocin 2 % Mupiroci n 2 % 11/14/2020 12:00:00 AM EDT active Mupiroci n 2 % eCW1 ([facility]) ferric carboxymaltose 50 MG/ML Injectabl e Solution [Injectafer] Injectafer 750 MG/15ML Injectafer 750 MG/15ML 11/14/2020 12:00:00 AM EDT active Injectafer 750 MG/15ML eCW1 ([facility]) Mupirocin 0.02 MG/MG Topical Ointment Mupirocin 2 % Mupiroci n 2 % 11/14/2020 12:00:00 AM EDT active Mupiroci n 2 % eCW1 ([facility]) Mupirocin 0.02 MG/MG Topical Ointment Mupirocin 2 % Mupiroci n 2 % 11/14/2020 12:00:00 AM EDT active Mupiroci n 2 % eCW1 ([facility]) ferric carboxymaltose 50 MG/ML Injectabl e Solution [Injectafer] Injectafer 750 MG/15ML Injectafer 750 MG/15ML 11/14/2020 12:00:00 AM EDT active Injectafer 750 MG/15ML eCW1 ([facility]) ferric carboxymaltose 50 MG/ML Injectabl e Solution [Injectafer] Injectafer 750 MG/15ML Injectafer 750 MG/15ML 11/14/2020 12:00:00 AM EDT active Injectafer 750 MG/15ML eCW1 ([facility]) ferric carboxymaltose 50 MG/ML Injectabl e Solution [Injectafer] Injectafer 750 MG/15ML Injectafer 750 MG/15ML 11/14/2020 12:00:00 AM EDT active Injectafer 750 MG/15ML eCW1 ([facility]) Mupirocin 0.02 MG/MG Topical Ointment Mupirocin 2 % Mupiroci n 2 % 11/14/2020 12:00:00 AM EDT active Mupiroci n 2 % eCW1 ([facility]) Mupirocin 0.02 MG/MG Topical Ointment Mupirocin 2 % Mupiroci n 2 % 11/14/2020 12:00:00 AM EDT active e CW1 ([facility]) Mupirocin 0.02 MG/MG Topical Ointment Mupirocin 2 % Mupiroci n 2 % 11/14/2020 12:00:00 AM EDT active Mupiroci n 2 % eCW1 ([facility]) ferric carboxymaltose 50 MG/ML Injectabl e Solution [Injectafer] Injectafer 750 MG/15ML Injectafer 750 MG/15ML 11/14/2020 12:00:00 AM EDT active Injectafer 750 MG/15ML eCW1 ([facility]) ferric carboxymaltose 50 MG/ML Injectabl e Solution [Injectafer] Injectafer 750 MG/15ML Injectafer 750 MG/15ML 11/14/2020 12:00:00 AM EDT active eCW1 ([facility]) Mupirocin 0.02 MG/MG Topical Ointment Mupirocin 2 % Mupiroci n 2 % 11/14/2020 12:00:00 AM EDT active Mupiroci n 2 % eCW1 ([facility]) Mupirocin 0.02 MG/MG Topical Ointment Mupirocin 2 % Mupiroci n 2 % 11/14/2020 12:00:00 AM EDT active Mupiroci n 2 % eCW1 ([facility]) ferric carboxymaltose 50 MG/ML Injectabl e Solution [Injectafer] Injectafer 750 MG/15ML Injectafer 750 MG/15ML 11/14/2020 12:00:00 AM EDT active Injectafer 750 MG/15ML eCW1 ([facility]) Mupirocin 0.02 MG/MG Topical Ointment Mupirocin 2 % Mupiroci n 2 % 11/14/2020 12:00:00 AM EDT active Mupiroci n 2 % eCW1 ([facility]) ferric carboxymaltose 50 MG/ML Injectabl e Solution [Injectafer] Injectafer 750 MG/15ML Injectafer 750 MG/15ML 11/14/2020 12:00:00 AM EDT active Injectafer 750 MG/15ML eCW1 ([facility]) magnesium citrate 58.2 MG/ML Oral Solution Magnesium Citrate 11/11/2020 12:00:00 AM EDT active MEDENT ([facility], ) POLYETHYLENE GLYCOL 3350 142 MG/ML Oral Solution [Miralax] M iralax 11/11/2020 12:00:00 AM EDT active M EDENT ([facility], ) Glucometer UNK 11/03/2020 12:00:00 AM EDT active Glucometer eCW1 ([facility]) Blood Glucose Test - Blood Glucose Test - 11/03/2020 12:00:00 AM EDT active Blood Glucose Test - eCW1 ([facility]) Blood Glucose Test - Blood Glucose Test - 11/03/2020 12:00:00 AM EDT active Blood Glucose Test - eCW1 ([facility]) Blood Glucose Test - Blood Glucose Test - 11/03/2020 12:00:00 AM EDT active Blood Glucose Test - eCW1 ([facility]) Blood Glucose Test - Blood Glucose Test - 11/03/2020 12:00:00 AM EDT active Blood Glucose Test - eCW1 ([facility]) Blood Glucose Test - Blood Glucose Test - 11/03/2020 12:00:00 AM EDT active Blood Glucose Test - eCW1 ([facility]) Lancets - Lancets - 11/03/2020 12:00:00 AM EDT act андрей Lancets - eCW1 ([facility]) Glucometer UNK 11/03/2020 12:00:00 AM EDT active Glucometer eCW1 ([facility]) Glucometer UNK 11/03/2020 12:00:00 AM EDT active Glucometer eCW1 ([facility]) Glucometer UNK 11/03/2020 12:00:00 AM EDT active Glucometer eCW1 ([facility]) Glucometer UNK 11/03/2020 12:00:00 AM EDT active Glucometer eCW1 ([facility]) Blood Glucose Test - Blood Glucose Test - 11/03/2020 12:00:00 AM EDT active Blood Glucose Test - eCW1 ([facility]) Glucometer UNK 11/03/2020 12:00:00 AM EDT active Glucometer eCW1 ([facility]) Lancets - Lancets - 11/03/2020 12:00:00 AM EDT act андрей Lancets - eCW1 ([facility]) Blood Glucose Test - Blood Glucose Test - 11/03/2020 12:00:00 AM EDT active Blood Glucose Test - eCW1 ([facility]) Lancets - Lancets - 11/03/2020 12:00:00 AM EDT act андрей Lancets - eCW1 ([facility]) Lancets - Lancets - 11/03/2020 12:00:00 AM EDT act андрей Lancets - eCW1 ([facility]) Lancets - Lancets - 11/03/2020 12:00:00 AM EDT act андрей Lancets - eCW1 ([facility]) Lancets - Lancets - 11/03/2020 12:00:00 AM EDT act андрей Lancets - eCW1 ([facility]) Lancets - Lancets - 11/03/2020 12:00:00 AM EDT act андрей eCW1 ([facility]) Glucometer UNK 11/03/2020 12:00:00 AM EDT active Glucometer eCW1 ([facility]) Lancets - Lancets - 11/03/2020 12:00:00 AM EDT act андрей Lancets - eCW1 ([facility]) Blood Glucose Test - Blood Glucose Test - 11/03/2020 12:00:00 AM EDT active Blood Glucose Test - eCW1 ([facility]) Glucometer UNK 11/03/2020 12:00:00 AM EDT active Glucometer eCW1 ([facility]) Lancets - Lancets - 11/03/2020 12:00:00 AM EDT act андрей Lancets - eCW1 ([facility]) Blood Glucose Test - Blood Glucose Test - 11/03/2020 12:00:00 AM EDT active Blood Glucose Test - eCW1 ([facility]) Glucometer UNK 11/03/2020 12:00:00 AM EDT active Glucometer eCW1 ([facility]) Blood Glucose Test - Blood Glucose Test - 11/03/2020 12:00:00 AM EDT active Blood Glucose Test - eCW1 ([facility]) Lancets - Lancets - 11/03/2020 12:00:00 AM EDT act андрей Lancets - eCW1 ([facility]) Glucometer UNK 11/03/2020 12:00:00 AM EDT active Glucometer eCW1 ([facility]) Blood Glucose Test - Blood Glucose Test - 11/03/2020 12:00:00 AM EDT active Blood Glucose Test - eCW1 ([facility]) Lancets - Lancets - 11/03/2020 12:00:00 AM EDT act андрей Lancets - eCW1 ([facility]) Blood Glucose Test - Blood Glucose Test - 11/03/2020 12:00:00 AM EDT active Blood Glucose Test - eCW1 ([facility]) Glucometer UNK 11/03/2020 12:00:00 AM EDT active Glucometer eCW1 ([facility]) Lancets - Lancets - 11/03/2020 12:00:00 AM EDT act андрей Lancets - eCW1 ([facility]) Blood Glucose Test - Blood Glucose Test - 11/03/2020 12:00:00 AM EDT active Blood Glucose Test - [facility]CW1 [facility] [facility]) Glucometer UNK 11/03/2020 12:00:00 AM EDT active Glucometer eCW1 ([facility]) Blood Glucose Test - Blood Glucose Test - 11/03/2020 12:00:00 AM EDT active Blood Glucose Test - eCW1 ([facility]) Glucometer UNK 11/03/2020 12:00:00 AM EDT active Glucometer eCW1 ([facility]) Blood Glucose Test - Blood Glucose Test - 11/03/2020 12:00:00 AM EDT active Blood Glucose Test - eCW1 ([facility]) Lancets - Lancets - 11/03/2020 12:00:00 AM EDT act андрей Lancets - eCW1 ([facility]) Blood Glucose Test - Blood Glucose Test - 11/03/2020 12:00:00 AM EDT active Blood Glucose Test - eCW1 ([facility]) Lancets - Lancets - 11/03/2020 12:00:00 AM EDT act андрей Lancets - eCW1 ([facility]) Lancets - Lancets - 11/03/2020 12:00:00 AM EDT act андрей Lancets - eCW1 ([facility]) Lancets - Lancets - 11/03/2020 12:00:00 AM EDT act андрей Lancets - eCW1 ([facility]) Glucometer UNK 11/03/2020 12:00:00 AM EDT active Glucometer eCW1 ([facility]) Lancets - Lancets - 11/03/2020 12:00:00 AM EDT act андрей Lancets - eCW1 ([facility]) Lancets - Lancets - 11/03/2020 12:00:00 AM EDT act анрдей Lancets - eCW1 ([facility]) Glucometer UNK 11/03/2020 12:00:00 AM EDT active Glucometer eCW1 ([facility]) Blood Glucose Test - Blood Glucose Test - 11/03/2020 12:00:00 AM EDT active Blood Glucose Test - eCW1 ([facility]) Blood Glucose Test - Blood Glucose Test - 11/03/2020 12:00:00 AM EDT active Blood Glucose Test - eCW1 ([facility]) Glucometer UNK 11/03/2020 12:00:00 AM EDT active Glucometer eCW1 ([facility]) Lancets - Lancets - 11/03/2020 12:00:00 AM EDT act андрей Lancets - eCW1 ([facility]) Blood Glucose Test - Blood Glucose Test - 11/03/2020 12:00:00 AM EDT active Blood Glucose Test - eCW1 ([facility]) Glucometer UNK 11/03/2020 12:00:00 AM EDT active Glucometer eCW1 ([facility]) Lancets - Lancets - 11/03/2020 12:00:00 AM EDT act андрей Lancets - eCW1 ([facility]) Lancets - Lancets - 11/03/2020 12:00:00 AM EDT act андрей Lancets - eCW1 ([facility]) Glucometer UNK 11/03/2020 12:00:00 AM EDT active eCW1 ([facility]) Lancets - Lancets - 11/03/2020 12:00:00 AM EDT act андрей Lancets - eCW1 ([facility]) Glucometer UNK 11/03/2020 12:00:00 AM EDT active Glucometer eCW1 ([facility]) Blood Glucose Test - Blood Glucose Test - 11/03/2020 12:00:00 AM EDT active Blood Glucose Test - eCW1 ([facility]) Blood Glucose Test - Blood Glucose Test - 11/03/2020 12:00:00 AM EDT active eCW1 ([facility]) Blood Glucose Test - Blood Glucose Test - 11/03/2020 12:00:00 AM EDT active Blood Glucose Test - eCW1 ([facility]) Lancets - Lancets - 11/03/2020 12:00:00 AM EDT act андрей Lancets - eCW1 ([facility]) Blood Glucose Test - Blood Glucose Test - 11/03/2020 12:00:00 AM EDT active Blood Glucose Test - eCW1 ([facility]) Glucometer UNK 11/03/2020 12:00:00 AM EDT active Glucometer eCW1 ([facility]) Glucometer UNK 11/03/2020 12:00:00 AM EDT active Glucometer eCW1 ([facility]) Glucometer UNK 11/03/2020 12:00:00 AM EDT active Glucometer eCW1 ([facility]) Glucometer UNK 11/03/2020 12:00:00 AM EDT active Glucometer eCW1 ([facility]) POLYETHYLENE GLYCOL 3350 142 MG/ML Oral Solution [Miralax] M iralax 10/15/2020 12:00:00 AM EDT ORAL active M EDENT ([facility]) Alprazolam 1 MG Oral Tablet Alprazolam 08/11/2020 12:00:00 AM EDT ORAL active MEDENT ([facility]) Fluconazole 150 MG Oral Tablet [Diflucan] Diflucan 08/11/2020 1 2:00:00 AM EDT ORAL active MEDENT ([facility]) Botox 50 Units For Waste For 200 Units JW Modifier 07/23/2020 12:00:00 AM EDT completed MEDENT ([facility]) Medication administered onsite Botox 200 Units- I Vial 07/23/2020 12:00:00 AM EDT completed MEDENT ([facility]) Medication administered onsite cefdinir 300 MG Oral Capsule Cefdinir 07/16/2020 12:00:00 AM EDT ORAL completed MEDENT ([facility]) 60 ACTUAT Fluticasone propionate 0.25 MG /ACTUAT / salmeterol 0.05 MG/ACTUAT Dry Powder Inhaler [Advair] Advair Diskus 250-50 MCG/DOSE Advair Diskus 250-50 MCG/DOSE 07/07/2020 12:00:00 AM EDT 1.0 {puff} activ e Advair Diskus 250-50 MCG/DOSE eCW1 ([facility]) 60 ACTUAT Fluticasone propionate 0.25 MG /ACTUAT / salmeterol 0.05 MG/ACTUAT Dry Powder Inhaler [Advair] Advair Diskus 250-50 MCG/DOSE Advair Diskus 250-50 MCG/DOSE 07/07/2020 12:00:00 AM EDT 1.0 {puff} activ e Advair Diskus 250-50 MCG/DOSE eCW1 ([facility]) 60 ACTUAT Fluticasone propionate 0.25 MG /ACTUAT / salmeterol 0.05 MG/ACTUAT Dry Powder Inhaler [Advair] Advair Diskus 250-50 MCG/DOSE Advair Diskus 250-50 MCG/DOSE 07/07/2020 12:00:00 AM EDT 1.0 {puff} activ e Advair Diskus 250-50 MCG/DOSE eCW1 ([facility]) 60 ACTUAT Fluticasone propionate 0.25 MG /ACTUAT / salmeterol 0.05 MG/ACTUAT Dry Powder Inhaler [Advair] Advair Diskus 250-50 MCG/DOSE Advair Diskus 250-50 MCG/DOSE 07/07/2020 12:00:00 AM EDT 1.0 {puff} activ e Advair Diskus 250-50 MCG/DOSE eCW1 ([facility]) 60 ACTUAT Fluticasone propionate 0.25 MG /ACTUAT / salmeterol 0.05 MG/ACTUAT Dry Powder Inhaler [Advair] Advair Diskus 250-50 MCG/DOSE Advair Diskus 250-50 MCG/DOSE 07/07/2020 12:00:00 AM EDT 1.0 {puff} activ e Advair Diskus 250-50 MCG/DOSE eCW1 ([facility]) 60 ACTUAT Fluticasone propionate 0.25 MG /ACTUAT / salmeterol 0.05 MG/ACTUAT Dry Powder Inhaler [Advair] Advair Diskus 250-50 MCG/DOSE Advair Diskus 250-50 MCG/DOSE 07/07/2020 12:00:00 AM EDT 1.0 {puff} activ e Advair Diskus 250-50 MCG/DOSE eCW1 ([facility]) 60 ACTUAT Fluticasone propionate 0.25 MG /ACTUAT / salmeterol 0.05 MG/ACTUAT Dry Powder Inhaler [Advair] Advair Diskus 250-50 MCG/DOSE Advair Diskus 250-50 MCG/DOSE 07/07/2020 12:00:00 AM EDT 1.0 {puff} activ e Advair Diskus 250-50 MCG/DOSE eCW1 ([facility]) 60 ACTUAT Fluticasone propionate 0.25 MG /ACTUAT / salmeterol 0.05 MG/ACTUAT Dry Powder Inhaler [Advair] Advair Diskus 250-50 MCG/DOSE Advair Diskus 250-50 MCG/DOSE 07/07/2020 12:00:00 AM EDT 1.0 {puff} activ e Advair Diskus 250-50 MCG/DOSE eCW1 ([facility]) 60 ACTUAT Fluticasone propionate 0.25 MG /ACTUAT / salmeterol 0.05 MG/ACTUAT Dry Powder Inhaler [Advair] Advair Diskus 250-50 MCG/DOSE Advair Diskus 250-50 MCG/DOSE 07/07/2020 12:00:00 AM EDT 1.0 {puff} activ e Advair Diskus 250-50 MCG/DOSE eCW1 ([facility]) 60 ACTUAT Fluticasone propionate 0.25 MG /ACTUAT / salmeterol 0.05 MG/ACTUAT Dry Powder Inhaler [Advair] Advair Diskus 250-50 MCG/DOSE Advair Diskus 250-50 MCG/DOSE 07/07/2020 12:00:00 AM EDT 1.0 {puff} activ e Advair Diskus 250-50 MCG/DOSE eCW1 ([facility]) 60 ACTUAT Fluticasone propionate 0.25 MG /ACTUAT / salmeterol 0.05 MG/ACTUAT Dry Powder Inhaler [Advair] Advair Diskus 250-50 MCG/DOSE Advair Diskus 250-50 MCG/DOSE 07/07/2020 12:00:00 AM EDT 1.0 {puff} activ e Advair Diskus 250-50 MCG/DOSE eCW1 ([facility]) 60 ACTUAT Fluticasone propionate 0.25 MG /ACTUAT / salmeterol 0.05 MG/ACTUAT Dry Powder Inhaler [Advair] Advair Diskus 250-50 MCG/DOSE Advair Diskus 250-50 MCG/DOSE 07/07/2020 12:00:00 AM EDT 1.0 {puff} activ e Advair Diskus 250-50 MCG/DOSE eCW1 ([facility]) 60 ACTUAT Fluticasone propionate 0.25 MG /ACTUAT / salmeterol 0.05 MG/ACTUAT Dry Powder Inhaler [Advair] Advair Diskus 250-50 MCG/DOSE Advair Diskus 250-50 MCG/DOSE 07/07/2020 12:00:00 AM EDT 1.0 {puff} activ e Advair Diskus 250-50 MCG/DOSE eCW1 ([facility]) Alprazolam 1 MG Oral Tablet Alprazolam 05/29/2020 12:00:00 AM EDT ORAL completed MEDENT ([facility] POLYETHYLENE GLYCOL 3350 142 MG/ML Oral Solution [Dawn lax] MiraLax 17 GM/SCOOP MiraLax 17 GM/SCOOP 05/26/2020 12:00:00 AM EDT active MiraLax 17 GM/SCOOP eCW1 ([facility]) POLYETHYLENE GLYCOL 3350 142 MG/ML Oral Solution [Dawn lax] MiraLax 17 GM/SCOOP MiraLax 17 GM/SCOOP 05/26/2020 12:00:00 AM EDT active MiraLax 17 GM/SCOOP eCW1 ([facility]) POLYETHYLENE GLYCOL 3350 142 MG/ML Oral Solution [Dawn lax] MiraLax 17 GM/SCOOP MiraLax 17 GM/SCOOP 05/26/2020 12:00:00 AM EDT active MiraLax 17 GM/SCOOP eCW1 ([facility]) POLYETHYLENE GLYCOL 3350 142 MG/ML Oral Solution [Dawn lax] MiraLax 17 GM/SCOOP MiraLax 17 GM/SCOOP 05/26/2020 12:00:00 AM EDT active MiraLax 17 GM/SCOOP eCW1 ([facility]) POLYETHYLENE GLYCOL 3350 142 MG/ML Oral Solution [Dawn lax] MiraLax 17 GM/SCOOP MiraLax 17 GM/SCOOP 05/26/2020 12:00:00 AM EDT active MiraLax 17 GM/SCOOP eCW1 ([facility]) POLYETHYLENE GLYCOL 3350 142 MG/ML Oral Solution [Dawn lax] MiraLax 17 GM/SCOOP MiraLax 17 GM/SCOOP 05/26/2020 12:00:00 AM EDT active MiraLax 17 GM/SCOOP eCW1 ([facility]) POLYETHYLENE GLYCOL 3350 142 MG/ML Oral Solution [Dawn lax] MiraLax 17 GM/SCOOP MiraLax 17 GM/SCOOP 05/26/2020 12:00:00 AM EDT active MiraLax 17 GM/SCOOP eCW1 ([facility]) POLYETHYLENE GLYCOL 3350 142 MG/ML Oral Solution [Dawn lax] MiraLax 17 GM/SCOOP MiraLax 17 GM/SCOOP 05/26/2020 12:00:00 AM EDT active MiraLax 17 GM/SCOOP eCW1 ([facility]) POLYETHYLENE GLYCOL 3350 142 MG/ML Oral Solution [Dawn lax] MiraLax 17 GM/SCOOP MiraLax 17 GM/SCOOP 05/26/2020 12:00:00 AM EDT active MiraLax 17 GM/SCOOP eCW1 ([facility]) POLYETHYLENE GLYCOL 3350 142 MG/ML Oral Solution [Dawn lax] MiraLax 17 GM/SCOOP MiraLax 17 GM/SCOOP 05/26/2020 12:00:00 AM EDT active MiraLax 17 GM/SCOOP eCW1 ([facility]) POLYETHYLENE GLYCOL 3350 142 MG/ML Oral Solution [Dawn lax] MiraLax 17 GM/SCOOP MiraLax 17 GM/SCOOP 05/26/2020 12:00:00 AM EDT active MiraLax 17 GM/SCOOP eCW1 ([facility]) 60 ACTUAT Albuterol 0.09 MG/ACTUAT Metered Dose Inhaler Albu terol Sulfate HFA 04/25/2020 12:00:00 AM EST RESPIRATORY active MEDENT ([facility] ) NITROFURANTOIN, MACROCRYSTALS 50 MG Oral Capsule [Macrodanti n] Macrodantin 04/09/2020 12:00:00 AM EST ORAL completed MEDENT ([facility]) Ciprofloxacin 500 MG Oral Tablet Ciprofloxacin HCL 04/09/2020 12:00 :00 AM EST ORAL completed [facility] ([facility] Cyclobenzaprine hydrochloride 10 MG Oral Tablet Cyclob enzaprine HCl 10 MG Cyclobenzaprine HCl 10 MG 02/07/2020 12:00:00 AM EST active Cyclobenzaprine HCl 10 MG eCW1 ([facility]) Cyclobenzaprine hydrochloride 10 MG Oral Tablet Cyclob enzaprine HCl 10 MG Cyclobenzaprine HCl 10 MG 02/07/2020 12:00:00 AM EST active Cyclobenzaprine HCl 10 MG eCW1 ([facility]) Cyclobenzaprine hydrochloride 5 MG Oral Tablet Cyclobe nzaprine HCl 5 MG Cyclobenzaprine HCl 5 MG 02/07/2020 12:00:00 AM EST active Cyclobenzaprine HCl 5 MG eCW1 ([facility]) Cyclobenzaprine hydrochloride 10 MG Oral Tablet Cyclob enzaprine HCl 10 MG Cyclobenzaprine HCl 10 MG 02/07/2020 12:00:00 AM EST active Cyclobenzaprine HCl 10 MG eCW1 ([facility]) Metronidazole 500 MG Oral Tablet Metronidazole 01/14/2020 12:00:00 AM EST ORAL active MEDENT ([facility]) Tamsulosin hydrochloride 0.4 MG Oral Capsule Tamsulosin HCL 01/10/2020 12:00:00 AM EST active MEDENT ([facility]) NITROFURANTOIN, MACROCRYSTALS 25 MG / Ni trofurantoin, Monohydrate 75 MG Oral Capsule [Macrobid] Macrobid 01/10/2020 12:00:00 AM EST ORAL completed [facility]ENT ([facility] Ciprofloxacin 250 MG Oral Tablet Ciprofloxacin HCL 12/13/2019 12:00 :00 AM EDT ORAL completed MEDENT ([facility] Amitriptyline Hydrochloride 25 MG Oral Tablet Amitript yline HCl 25 MG Amitriptyline HCl 25 MG 12/06/2019 12:00:00 AM EDT active Amitriptyline HCl 25 MG eCW1 ([facility]) Amitriptyline Hydrochloride 25 MG Oral Tablet Amitript yline HCl 25 MG Amitriptyline HCl 25 MG 12/06/2019 12:00:00 AM EDT active Amitriptyline HCl 25 MG eCW1 ([facility]) Amitriptyline Hydrochloride 25 MG Oral Tablet Amitript yline HCl 25 MG Amitriptyline HCl 25 MG 12/06/2019 12:00:00 AM EDT active Amitriptyline HCl 25 MG eCW1 ([facility]) Amitriptyline Hydrochloride 25 MG Oral Tablet Amitript yline HCl 25 MG Amitriptyline HCl 25 MG 12/06/2019 12:00:00 AM EDT active Amitriptyline HCl 25 MG eCW1 ([facility]) Amitriptyline Hydrochloride 25 MG Oral Tablet Amitript yline HCl 25 MG Amitriptyline HCl 25 MG 12/06/2019 12:00:00 AM EDT active Amitriptyline HCl 25 MG eCW1 ([facility]) Amitriptyline Hydrochloride 25 MG Oral Tablet Amitript yline HCl 25 MG Amitriptyline HCl 25 MG 12/06/2019 12:00:00 AM EDT active Amitriptyline HCl 25 MG eCW1 ([facility]) Botox 200 Units- I Vial 11/27/2019 12:00:00 AM EDT completed MEDENT ([facility]) Medication administered onsite Botox 50 Units For Waste For 200 Units JW Modifier 11/27/2019 12:00:00 AM EDT completed MEDENT ([facility]) Medication administered onsite Ciprofloxacin 250 MG Oral Tablet Ciprofloxacin HCL 11/27/2019 12:00 :00 AM EDT ORAL completed [facility]ENT ([facility] Alprazolam 1 MG Oral Tablet Alprazolam 10/11/2019 12:00:00 AM EDT ORAL completed MEDENT ([facility] cefdinir 300 MG Oral Capsule cefdinir 300 mg capsule cefdinir 30 0 mg capsule completed cefdinir 300 M G Oral Capsule MARILIA ([facility]) Methylprednisolone 4 MG Oral Tablet methylprednisolone 4 mg tablet 1 tab daily methylprednisolone 4 mg tablet 1 tab daily completed methylprednisolone 4 MG Oral Tablet MARILIA ([facility]) Doxycycline Monohydrate 100 MG Oral Caps ule doxycycline monohydrate 100 mg capsule TAKE ONE CAPSULE BY MOUTH TWICE DAILY FOR SEVEN DAYS doxycycline monohydrate 100 mg capsule TAKE ONE CAPSULE BY MOUTH TWICE DAILY FOR SEVEN DAYS completed doxycycline mo nohydrate 100 MG Oral Capsule MARILIA ([facility]) cefdinir 300 MG Oral Capsule cefdinir 300 mg capsule cefdinir 30 0 mg capsule completed cefdinir 300 M G Oral Capsule MARILIA ([facility]) Amoxicillin 500 MG / Clavulanate 125 MG Oral Tablet amoxicillin 500 mg-potassium clavulanate 125 mg tablet TAKE ONE TABLET BY MOUTH EVERY TWELVE HOURS amoxicillin 500 mg-potassium clavulanate 125 mg tablet TAKE ONE TABLET BY MOUTH EVERY TWELVE HOURS completed amoxicillin 500 MG / clavulanate 125 MG Oral Tablet MARILIA ([facility]) 0.3 ML Enoxaparin sodium 100 MG/ML Prefi lled Syringe enoxaparin 30 mg/0.3 mL subcutaneous syringe INJECT 0.3 MILLILITERS SUBCUTANEOUSLY EVERY 12 HOURS FOR TWO WEEKS enoxaparin 30 mg/0.3 mL subcutaneous syr travis INJECT 0.3 MILLILITERS SUBCUTANEOUSLY EVERY 12 HOURS FOR TWO WEEKS completed 0.3 ML enoxaparin sodium 100 MG/ML Prefilled Syringe MARILIA ([facility]) Methylprednisolone 4 MG Oral Tablet methylprednisolone 4 mg tablet 1 tab daily methylprednisolone 4 mg tablet 1 tab daily completed methylprednisolone 4 MG Oral Tablet MARILIA ([facility]) tramadol hydrochloride 50 MG Oral Tablet tramadol 50 mg tablet TAKE ONE TABLET BY MOUTH EVERY 6 HOURS NEEDED FOR PAIN MAX DAILY DOSE FOUR TABLETS tramadol 50 mg tablet TAKE ONE TABLET BY MOUTH EVERY 6 HOURS NEEDED FOR PAIN MAX DAILY DOSE FOUR TABLETS completed tramadol hydrochloride 50 MG Oral Tablet MARILIA ([facility]) Oxycodone Hydrochloride 5 MG Oral Tablet oxycodone 5 mg tablet TAKE 1 TO 2 TABLETS BY MOUTH EVERY FOUR HOURS NEEDED FOR PAIN MAX DAILY DOSE 12 CAPSULES oxycodone 5 mg tablet TAKE 1 TO 2 TABLETS BY MOUTH EVERY FOUR HOURS NEEDED FOR PAIN MAX DAILY DOSE 12 CAPSULES co mpleted oxycodone hydrochloride 5 MG Oral Tablet MARILIA ([facility]) Prednisone 20 MG Oral Tablet prednisone 20 mg tablet TAKE ONE TABLET BY MOUTH ONCE DAILY FOR FIVE DAYS prednisone 20 mg tablet TAKE ONE TABLET BY MOUTH ONCE DAILY FOR FIVE DAYS completed pr ednisone 20 MG Oral Tablet MARILIA ([facility]) glimepiride 1 MG Oral Tablet glimepiride 1 mg tablet glimepiride 1 mg tablet completed glimepiride 1 MG Oral Tablet MARILIA ([facility]) Alprazolam 1 MG Oral Tablet alprazolam 1 mg tablet alprazolam 1 mg ta blet completed alprazolam 1 MG Oral Tablet MARILIA ([facility]) Alprazolam 1 MG Oral Tablet alprazolam 1 mg tablet alprazolam 1 mg ta blet completed alprazolam 1 MG Oral Tablet MARILIA ([facility]) 0.3 ML Enoxaparin sodium 100 MG/ML Prefi lled Syringe enoxaparin 30 mg/0.3 mL subcutaneous syringe INJECT 0.3 MILLILITERS SUBCUTANEOUSLY EVERY 12 HOURS FOR TWO WEEKS enoxaparin 30 mg/0.3 mL subcutaneous syr travis INJECT 0.3 MILLILITERS SUBCUTANEOUSLY EVERY 12 HOURS FOR TWO WEEKS completed 0.3 ML enoxaparin sodium 100 MG/ML Prefilled Syringe MARILIA ([facility]) Methylprednisolone 2 MG Oral Tablet [Med rol] Medrol 2 mg tablet 1 tablet every other day Medrol 2 mg tablet 1 tablet every other day completed methylprednisolone 2 MG Oral Tablet [Medrol] MARILIA ([facility]) Doxycycline Monohydrate 100 MG Oral Caps ule doxycycline monohydrate 100 mg capsule TAKE ONE CAPSULE BY MOUTH TWICE DAILY FOR SEVEN DAYS doxycycline monohydrate 100 mg capsule TAKE ONE CAPSULE BY MOUTH TWICE DAILY FOR SEVEN DAYS completed doxycycline mo nohydrate 100 MG Oral Capsule MARILIA ([facility]) Prednisone 20 MG Oral Tablet prednisone 20 mg tablet TAKE ONE TABLET BY MOUTH ONCE DAILY FOR FIVE DAYS prednisone 20 mg tablet TAKE ONE TABLET BY MOUTH ONCE DAILY FOR FIVE DAYS completed pr ednisone 20 MG Oral Tablet MARILIA ([facility]) Amoxicillin 500 MG / Clavulanate 125 MG Oral Tablet amoxicillin 500 mg-potassium clavulanate 125 mg tablet TAKE ONE TABLET BY MOUTH EVERY TWELVE HOURS amoxicillin 500 mg-potassium clavulanate 125 mg tablet TAKE ONE TABLET BY MOUTH EVERY TWELVE HOURS completed amoxicillin 500 MG / clavulanate 125 MG Oral Tablet MARILIA ([facility]) Alprazolam 1 MG Oral Tablet alprazolam 1 mg tablet alprazolam 1 mg ta blet completed alprazolam 1 MG Oral Tablet MARILIA ([facility]) 0.3 ML Enoxaparin sodium 100 MG/ML Prefi lled Syringe enoxaparin 30 mg/0.3 mL subcutaneous syringe INJECT 0.3 MILLILITERS SUBCUTANEOUSLY EVERY 12 HOURS FOR TWO WEEKS enoxaparin 30 mg/0.3 mL subcutaneous syr travis INJECT 0.3 MILLILITERS SUBCUTANEOUSLY EVERY 12 HOURS FOR TWO WEEKS completed 0.3 ML enoxaparin sodium 100 MG/ML Prefilled Syringe MARILIA ([facility]) Prednisone 20 MG Oral Tablet prednisone 20 mg tablet TAKE ONE TABLET BY MOUTH ONCE DAILY FOR FIVE DAYS prednisone 20 mg tablet TAKE ONE TABLET BY MOUTH ONCE DAILY FOR FIVE DAYS completed pr ednisone 20 MG Oral Tablet MARILIA ([facility]) 0.3 ML Enoxaparin sodium 100 MG/ML Prefi lled Syringe enoxaparin 30 mg/0.3 mL subcutaneous syringe INJECT 0.3 MILLILITERS SUBCUTANEOUSLY EVERY 12 HOURS FOR TWO WEEKS enoxaparin 30 mg/0.3 mL subcutaneous syr travis INJECT 0.3 MILLILITERS SUBCUTANEOUSLY EVERY 12 HOURS FOR TWO WEEKS completed 0.3 ML enoxaparin sodium 100 MG/ML Prefilled Syringe MARILIA ([facility]) 0.3 ML Enoxaparin sodium 100 MG/ML Prefi lled Syringe enoxaparin 30 mg/0.3 mL subcutaneous syringe INJECT 0.3 MILLILITERS SUBCUTANEOUSLY EVERY 12 HOURS FOR TWO WEEKS enoxaparin 30 mg/0.3 mL subcutaneous syr travis INJECT 0.3 MILLILITERS SUBCUTANEOUSLY EVERY 12 HOURS FOR TWO WEEKS completed 0.3 ML enoxaparin sodium 100 MG/ML Prefilled Syringe MARILIA ([facility]) Amoxicillin 500 MG / Clavulanate 125 MG Oral Tablet amoxicillin 500 mg-potassium clavulanate 125 mg tablet TAKE ONE TABLET BY MOUTH EVERY TWELVE HOURS amoxicillin 500 mg-potassium clavulanate 125 mg tablet TAKE ONE TABLET BY MOUTH EVERY TWELVE HOURS completed amoxicillin 500 MG / clavulanate 125 MG Oral Tablet MARILIA ([facility]) Doxycycline Monohydrate 100 MG Oral Caps ule doxycycline monohydrate 100 mg capsule TAKE ONE CAPSULE BY MOUTH TWICE DAILY FOR SEVEN DAYS doxycycline monohydrate 100 mg capsule TAKE ONE CAPSULE BY MOUTH TWICE DAILY FOR SEVEN DAYS completed doxycycline mo nohydrate 100 MG Oral Capsule MARILIA ([facility]) Acetaminophen 325 MG / Oxycodone Hydroch loride 5 MG Oral Tablet oxycodone- acetaminophen 5 mg-325 mg tablet oxycodone-acetaminophen 5 mg-325 mg tablet completed acetaminop hen 325 MG / oxycodone hydrochloride 5 MG Oral Tablet MARILIA ([facility]) glimepiride 1 MG Oral Tablet glimepiride 1 mg tablet glimepiride 1 mg tablet completed glimepiride 1 MG Oral Tablet MARILIA ([facility]) Estradiol 0.1 MG/ML Vaginal Cream estradiol 0.01% (0.1 mg/gram) vaginal cream estradiol 0.01% (0.1 mg/gram) vaginal cream completed estradiol 0.1 MG/ML Vaginal Cream MARILIA ([facility]) Prednisone 20 MG Oral Tablet prednisone 20 mg tablet TAKE ONE TABLET BY MOUTH ONCE DAILY FOR FIVE DAYS prednisone 20 mg tablet TAKE ONE TABLET BY MOUTH ONCE DAILY FOR FIVE DAYS completed pr ednisone 20 MG Oral Tablet MARILIA ([facility]) glimepiride 2 MG Oral Tablet glimepiride 2 mg tablet TAKE ONE TABLET BY MOUTH @8AM and TAKE ONE TABLET @8PM glimepiride 2 mg tablet TAKE ONE TABLET BY MOUTH @8AM and TAKE ONE TABLET @8PM complete d glimepiride 2 MG Oral Tablet MARILIA ([facility]) Cyclobenzaprine hydrochloride 5 MG Oral Tablet cyclobenzaprine 5 mg tablet TAKE ONE TABLET BY MOUTH @8AM and TAKE ONE TABLET @12PM and TAKE ONE TABLET @8PM cyclobenzaprine 5 mg tablet TAKE ONE TABLET BY MOUTH @8AM and TAKE ONE TABLET @12PM and TAKE ONE TABLET @8PM complet ed cyclobenzaprine hydrochloride 5 MG Oral Tablet MARILIA ([facility]) Acetaminophen 325 MG / Oxycodone Hydroch loride 5 MG Oral Tablet oxycodone- acetaminophen 5 mg-325 mg tablet oxycodone-acetaminophen 5 mg-325 mg tablet completed acetaminop hen 325 MG / oxycodone hydrochloride 5 MG Oral Tablet MARILIA ([facility]) tramadol hydrochloride 50 MG Oral Tablet tramadol 50 mg tablet TAKE ONE TABLET BY MOUTH EVERY 6 HOURS NEEDED FOR PAIN MAX DAILY DOSE FOUR TABLETS tramadol 50 mg tablet TAKE ONE TABLET BY MOUTH EVERY 6 HOURS NEEDED FOR PAIN MAX DAILY DOSE FOUR TABLETS completed tramadol hydrochloride 50 MG Oral Tablet MARILIA ([facility]) Estradiol 0.1 MG/ML Vaginal Cream estradiol 0.01% (0.1 mg/gram) vaginal cream estradiol 0.01% (0.1 mg/gram) vaginal cream completed estradiol 0.1 MG/ML Vaginal Cream MARILIA ([facility]) Estradiol 0.1 MG/ML Vaginal Cream estradiol 0.01% (0.1 mg/gram) vaginal cream estradiol 0.01% (0.1 mg/gram) vaginal cream completed estradiol 0.1 MG/ML Vaginal Cream MARILIA ([facility]) Prednisone 20 MG Oral Tablet prednisone 20 mg tablet TAKE ONE TABLET BY MOUTH ONCE DAILY FOR FIVE DAYS prednisone 20 mg tablet TAKE ONE TABLET BY MOUTH ONCE DAILY FOR FIVE DAYS completed pr ednisone 20 MG Oral Tablet MARILIA ([facility]) Doxycycline Monohydrate 100 MG Oral Caps ule doxycycline monohydrate 100 mg capsule TAKE ONE CAPSULE BY MOUTH TWICE DAILY FOR SEVEN DAYS doxycycline monohydrate 100 mg capsule TAKE ONE CAPSULE BY MOUTH TWICE DAILY FOR SEVEN DAYS completed doxycycline mo nohydrate 100 MG Oral Capsule MARIL[facility] ([facility]) Methylprednisolone 4 MG Oral Tablet methylprednisolone 4 mg tablet 1 tab daily methylprednisolone 4 mg tablet 1 tab daily completed methylprednisolone 4 MG Oral Tablet [facility] ([facility]) Ciprofloxacin 250 MG Oral Tablet ciprofl oxacin 250 mg tablet TAKE ONE TABLET BY MOUTH TWICE DAILY FOR 3 DAYS ciprofloxacin 250 mg tablet TAKE ONE TAB LET BY MOUTH TWICE DAILY FOR 3 DAYS completed ciprofloxacin 250 MG Oral Tablet [facility] ([facility]) Methylprednisolone 2 MG Oral Tablet [Med rol] Medrol 2 mg tablet 1 tablet every other day Medrol 2 mg tablet 1 tablet every other day completed methylprednisolone 2 MG Oral Tablet [Medrol] [facility]IL[facility] ([facility]) Amoxicillin 500 MG / Clavulanate 125 MG Oral Tablet amoxicillin 500 mg-potassium clavulanate 125 mg tablet TAKE ONE TABLET BY MOUTH EVERY TWELVE HOURS amoxicillin 500 mg-potassium clavulanate 125 mg tablet TAKE ONE TABLET BY MOUTH EVERY TWELVE HOURS completed amoxicillin 500 MG / clavulanate 125 MG Oral Tablet [facility] ([facility]) cefdinir 300 MG Oral Capsule cefdinir 300 mg capsule cefdinir 30 0 mg capsule completed cefdinir 300 M G Oral Capsule [facility]ILIA ([facility]) Doxycycline Monohydrate 100 MG Oral Caps ule doxycycline monohydrate 100 mg capsule TAKE ONE CAPSULE BY MOUTH TWICE DAILY FOR SEVEN DAYS doxycycline monohydrate 100 mg capsule TAKE ONE CAPSULE BY MOUTH TWICE DAILY FOR SEVEN DAYS completed doxycycline mo nohydrate 100 MG Oral Capsule [facility] ([facility]) Prednisone 20 MG Oral Tablet prednisone 20 mg tablet TAKE ONE TABLET BY MOUTH ONCE DAILY FOR FIVE DAYS prednisone 20 mg tablet TAKE ONE TABLET BY MOUTH ONCE DAILY FOR FIVE DAYS completed pr ednisone 20 MG Oral Tablet [facility] ([facility]) Estradiol 0.1 MG/ML Vaginal Cream estradiol 0.01% (0.1 mg/gram) vaginal cream estradiol 0.01% (0.1 mg/gram) vaginal cream completed estradiol 0.1 MG/ML Vaginal Cream [facility] ([facility]) Amoxicillin 500 MG / Clavulanate 125 MG Oral Tablet amoxicillin 500 mg-potassium clavulanate 125 mg tablet TAKE ONE TABLET BY MOUTH EVERY TWELVE HOURS amoxicillin 500 mg-potassium clavulanate 125 mg tablet TAKE ONE TABLET BY MOUTH EVERY TWELVE HOURS completed amoxicillin 500 MG / clavulanate 125 MG Oral Tablet MARILIA ([facility]) 0.3 ML Enoxaparin sodium 100 MG/ML Prefi lled Syringe enoxaparin 30 mg/0.3 mL subcutaneous syringe INJECT 0.3 MILLILITERS SUBCUTANEOUSLY EVERY 12 HOURS FOR TWO WEEKS enoxaparin 30 mg/0.3 mL subcutaneous syr travis INJECT 0.3 MILLILITERS SUBCUTANEOUSLY EVERY 12 HOURS FOR TWO WEEKS completed 0.3 ML enoxaparin sodium 100 MG/ML Prefilled Syringe MARILIA ([facility]) Doxycycline Monohydrate 100 MG Oral Caps ule doxycycline monohydrate 100 mg capsule TAKE ONE CAPSULE BY MOUTH TWICE DAILY FOR SEVEN DAYS doxycycline monohydrate 100 mg capsule TAKE ONE CAPSULE BY MOUTH TWICE DAILY FOR SEVEN DAYS completed doxycycline mo nohydrate 100 MG Oral Capsule [facility] ([facility]) Methylprednisolone 4 MG Oral Tablet methylprednisolone 4 mg tablet 1 tab daily methylprednisolone 4 mg tablet 1 tab daily completed methylprednisolone 4 MG Oral Tablet MARILIA ([facility]) glimepiride 2 MG Oral Tablet glimepiride 2 mg tablet TAKE ONE TABLET BY MOUTH @8AM and TAKE ONE TABLET @8PM glimepiride 2 mg tablet TAKE ONE TABLET BY MOUTH @8AM and TAKE ONE TABLET @8PM complete d glimepiride 2 MG Oral Tablet [facility] ([facility]) Ciprofloxacin 250 MG Oral Tablet ciprofl oxacin 250 mg tablet TAKE ONE TABLET BY MOUTH TWICE DAILY FOR 3 DAYS ciprofloxacin 250 mg tablet TAKE ONE TAB LET BY MOUTH TWICE DAILY FOR 3 DAYS completed ciprofloxacin 250 MG Oral Tablet MARILIA ([facility]) Acetaminophen 325 MG / Oxycodone Hydroch loride 5 MG Oral Tablet oxycodone- acetaminophen 5 mg-325 mg tablet oxycodone-acetaminophen 5 mg-325 mg tablet completed acetaminop hen 325 MG / oxycodone hydrochloride 5 MG Oral Tablet MARILIA ([facility]) glimepiride 1 MG Oral Tablet glimepiride 1 mg tablet glimepiride 1 mg tablet completed glimepiride 1 MG Oral Tablet MARILIA ([facility]) tramadol hydrochloride 50 MG Oral Tablet tramadol 50 mg tablet TAKE ONE TABLET BY MOUTH EVERY 6 HOURS NEEDED FOR PAIN MAX DAILY DOSE FOUR TABLETS tramadol 50 mg tablet TAKE ONE TABLET BY MOUTH EVERY 6 HOURS NEEDED FOR PAIN MAX DAILY DOSE FOUR TABLETS completed tramadol hydrochloride 50 MG Oral Tablet MARILIA ([facility]) Oxycodone Hydrochloride 5 MG Oral Tablet oxycodone 5 mg tablet TAKE 1 TO 2 TABLETS BY MOUTH EVERY FOUR HOURS NEEDED FOR PAIN MAX DAILY DOSE 12 CAPSULES oxycodone 5 mg tablet TAKE 1 TO 2 TABLETS BY MOUTH EVERY FOUR HOURS NEEDED FOR PAIN MAX DAILY DOSE 12 CAPSULES co mpleted oxycodone hydrochloride 5 MG Oral Tablet MARILIA ([facility]) Oxycodone Hydrochloride 5 MG Oral Tablet oxycodone 5 mg tablet TAKE 1 TO 2 TABLETS BY MOUTH EVERY FOUR HOURS NEEDED FOR PAIN MAX DAILY DOSE 12 CAPSULES oxycodone 5 mg tablet TAKE 1 TO 2 TABLETS BY MOUTH EVERY FOUR HOURS NEEDED FOR PAIN MAX DAILY DOSE 12 CAPSULES co mpleted oxycodone hydrochloride 5 MG Oral Tablet MARILIA ([facility]) Methylprednisolone 2 MG Oral Tablet [Med rol] Medrol 2 mg tablet 1 tablet every other day Medrol 2 mg tablet 1 tablet every other day completed methylprednisolone 2 MG Oral Tablet [Medrol] MARILIA ([facility]) tramadol hydrochloride 50 MG Oral Tablet tramadol 50 mg tablet TAKE ONE TABLET BY MOUTH EVERY 6 HOURS NEEDED FOR PAIN MAX DAILY DOSE FOUR TABLETS tramadol 50 mg tablet TAKE ONE TABLET BY MOUTH EVERY 6 HOURS NEEDED FOR PAIN MAX DAILY DOSE FOUR TABLETS completed tramadol hydrochloride 50 MG Oral Tablet [facility]ILIA ([facility]) Doxycycline Monohydrate 100 MG Oral Caps ule doxycycline monohydrate 100 mg capsule TAKE ONE CAPSULE BY MOUTH TWICE DAILY FOR SEVEN DAYS doxycycline monohydrate 100 mg capsule TAKE ONE CAPSULE BY MOUTH TWICE DAILY FOR SEVEN DAYS completed doxycycline mo nohydrate 100 MG Oral Capsule MARILIA ([facility]) Methylprednisolone 2 MG Oral Tablet [Med rol] Medrol 2 mg tablet 1 tablet every other day Medrol 2 mg tablet 1 tablet every other day completed methylprednisolone 2 MG Oral Tablet [Medrol] MARILIA ([facility]) Methylprednisolone 4 MG Oral Tablet methylprednisolone 4 mg tablet 1 tab daily methylprednisolone 4 mg tablet 1 tab daily completed methylprednisolone 4 MG Oral Tablet MARILIA ([facility]) Acetaminophen 325 MG / Oxycodone Hydroch loride 5 MG Oral Tablet oxycodone- acetaminophen 5 mg-325 mg tablet oxycodone-acetaminophen 5 mg-325 mg tablet completed acetaminop hen 325 MG / oxycodone hydrochloride 5 MG Oral Tablet MARILIA ([facility]) Methylprednisolone 2 MG Oral Tablet [Med rol] Medrol 2 mg tablet 1 tablet every other day Medrol 2 mg tablet 1 tablet every other day completed methylprednisolone 2 MG Oral Tablet [Medrol] MARILIA ([facility]) tramadol hydrochloride 50 MG Oral Tablet tramadol 50 mg tablet TAKE ONE TABLET BY MOUTH EVERY 6 HOURS NEEDED FOR PAIN MAX DAILY DOSE FOUR TABLETS tramadol 50 mg tablet TAKE ONE TABLET BY MOUTH EVERY 6 HOURS NEEDED FOR PAIN MAX DAILY DOSE FOUR TABLETS completed tramadol hydrochloride 50 MG Oral Tablet MARILIA ([facility]) Alprazolam 1 MG Oral Tablet alprazolam 1 mg tablet alprazolam 1 mg ta blet completed alprazolam 1 MG Oral Tablet MARILIA ([facility]) Amoxicillin 500 MG / Clavulanate 125 MG Oral Tablet amoxicillin 500 mg-potassium clavulanate 125 mg tablet TAKE ONE TABLET BY MOUTH EVERY TWELVE HOURS amoxicillin 500 mg-potassium clavulanate 125 mg tablet TAKE ONE TABLET BY MOUTH EVERY TWELVE HOURS completed amoxicillin 500 MG / clavulanate 125 MG Oral Tablet MARILIA ([facility]) Estradiol 0.1 MG/ML Vaginal Cream estradiol 0.01% (0.1 mg/gram) vaginal cream estradiol 0.01% (0.1 mg/gram) vaginal cream completed estradiol 0.1 MG/ML Vaginal Cream MARILIA ([facility]) Prednisone 20 MG Oral Tablet prednisone 20 mg tablet TAKE ONE TABLET BY MOUTH ONCE DAILY FOR FIVE DAYS prednisone 20 mg tablet TAKE ONE TABLET BY MOUTH ONCE DAILY FOR FIVE DAYS completed pr ednisone 20 MG Oral Tablet MARILIA ([facility]) Acetaminophen 325 MG / Oxycodone Hydroch loride 5 MG Oral Tablet oxycodone- acetaminophen 5 mg-325 mg tablet oxycodone-acetaminophen 5 mg-325 mg tablet completed acetaminop hen 325 MG / oxycodone hydrochloride 5 MG Oral Tablet MARILIA ([facility]) 0.3 ML Enoxaparin sodium 100 MG/ML Prefi lled Syringe enoxaparin 30 mg/0.3 mL subcutaneous syringe INJECT 0.3 MILLILITERS SUBCUTANEOUSLY EVERY 12 HOURS FOR TWO WEEKS enoxaparin 30 mg/0.3 mL subcutaneous syr travis INJECT 0.3 MILLILITERS SUBCUTANEOUSLY EVERY 12 HOURS FOR TWO WEEKS completed 0.3 ML enoxaparin sodium 100 MG/ML Prefilled Syringe MARILIA ([facility]) Amoxicillin 500 MG / Clavulanate 125 MG Oral Tablet amoxicillin 500 mg-potassium clavulanate 125 mg tablet TAKE ONE TABLET BY MOUTH EVERY TWELVE HOURS amoxicillin 500 mg-potassium clavulanate 125 mg tablet TAKE ONE TABLET BY MOUTH EVERY TWELVE HOURS completed amoxicillin 500 MG / clavulanate 125 MG Oral Tablet MARILIA ([facility]) Methylprednisolone 2 MG Oral Tablet [Med rol] Medrol 2 mg tablet 1 tablet every other day Medrol 2 mg tablet 1 tablet every other day completed methylprednisolone 2 MG Oral Tablet [Medrol] MARILIA ([facility]) Cyclobenzaprine hydrochloride 5 MG Oral Tablet cyclobenzaprine 5 mg tablet TAKE ONE TABLET BY MOUTH @8AM and TAKE ONE TABLET @12PM and TAKE ONE TABLET @8PM cyclobenzaprine 5 mg tablet TAKE ONE TABLET BY MOUTH @8AM and TAKE ONE TABLET @12PM and TAKE ONE TABLET @8PM complet ed cyclobenzaprine hydrochloride 5 MG Oral Tablet MARILIA ([facility]) Acetaminophen 325 MG / Oxycodone Hydroch loride 5 MG Oral Tablet oxycodone- acetaminophen 5 mg-325 mg tablet oxycodone-acetaminophen 5 mg-325 mg tablet completed acetaminop hen 325 MG / oxycodone hydrochloride 5 MG Oral Tablet MARILIA ([facility]) Ciprofloxacin 250 MG Oral Tablet ciprofl oxacin 250 mg tablet TAKE ONE TABLET BY MOUTH TWICE DAILY FOR 3 DAYS ciprofloxacin 250 mg tablet TAKE ONE TAB LET BY MOUTH TWICE DAILY FOR 3 DAYS completed ciprofloxacin 250 MG Oral Tablet MARILIA ([facility]) Oxycodone Hydrochloride 5 MG Oral Tablet oxycodone 5 mg tablet TAKE 1 TO 2 TABLETS BY MOUTH EVERY FOUR HOURS NEEDED FOR PAIN MAX DAILY DOSE 12 CAPSULES oxycodone 5 mg tablet TAKE 1 TO 2 TABLETS BY MOUTH EVERY FOUR HOURS NEEDED FOR PAIN MAX DAILY DOSE 12 CAPSULES co mpleted oxycodone hydrochloride 5 MG Oral Tablet MARILIA ([facility]) Ciprofloxacin 250 MG Oral Tablet ciprofl oxacin 250 mg tablet TAKE ONE TABLET BY MOUTH TWICE DAILY FOR 3 DAYS ciprofloxacin 250 mg tablet TAKE ONE TAB LET BY MOUTH TWICE DAILY FOR 3 DAYS completed ciprofloxacin 250 MG Oral Tablet MARILAI ([facility]) tramadol hydrochloride 50 MG Oral Tablet tramadol 50 mg tablet TAKE ONE TABLET BY MOUTH EVERY 6 HOURS NEEDED FOR PAIN MAX DAILY DOSE FOUR TABLETS tramadol 50 mg tablet TAKE ONE TABLET BY MOUTH EVERY 6 HOURS NEEDED FOR PAIN MAX DAILY DOSE FOUR TABLETS completed tramadol hydrochloride 50 MG Oral Tablet [facility]ILIA ([facility]) Prednisone 20 MG Oral Tablet prednisone 20 mg tablet TAKE ONE TABLET BY MOUTH ONCE DAILY FOR FIVE DAYS prednisone 20 mg tablet TAKE ONE TABLET BY MOUTH ONCE DAILY FOR FIVE DAYS completed pr ednisone 20 MG Oral Tablet MARILIA ([facility]) Methylprednisolone 4 MG Oral Tablet methylprednisolone 4 mg tablet 1 tab daily methylprednisolone 4 mg tablet 1 tab daily completed methylprednisolone 4 MG Oral Tablet MARILIA ([facility]) cefdinir 300 MG Oral Capsule cefdinir 300 mg capsule cefdinir 30 0 mg capsule completed cefdinir 300 M G Oral Capsule [facility]ILIA ([facility]) Estradiol 0.1 MG/ML Vaginal Cream estradiol 0.01% (0.1 mg/gram) vaginal cream estradiol 0.01% (0.1 mg/gram) vaginal cream completed estradiol 0.1 MG/ML Vaginal Cream MARILIA ([facility]) Methylprednisolone 4 MG Oral Tablet methylprednisolone 4 mg tablet 1 tab daily methylprednisolone 4 mg tablet 1 tab daily completed methylprednisolone 4 MG Oral Tablet MARILIA ([facility]) tramadol hydrochloride 50 MG Oral Tablet tramadol 50 mg tablet TAKE ONE TABLET BY MOUTH EVERY 6 HOURS NEEDED FOR PAIN MAX DAILY DOSE FOUR TABLETS tramadol 50 mg tablet TAKE ONE TABLET BY MOUTH EVERY 6 HOURS NEEDED FOR PAIN MAX DAILY DOSE FOUR TABLETS completed tramadol hydrochloride 50 MG Oral Tablet MARILIA ([facility]) glimepiride 2 MG Oral Tablet glimepiride 2 mg tablet TAKE ONE TABLET BY MOUTH @8AM and TAKE ONE TABLET @8PM glimepiride 2 mg tablet TAKE ONE TABLET BY MOUTH @8AM and TAKE ONE TABLET @8PM complete d glimepiride 2 MG Oral Tablet MARILIA ([facility]) Doxycycline Monohydrate 100 MG Oral Caps ule doxycycline monohydrate 100 mg capsule TAKE ONE CAPSULE BY MOUTH TWICE DAILY FOR SEVEN DAYS doxycycline monohydrate 100 mg capsule TAKE ONE CAPSULE BY MOUTH TWICE DAILY FOR SEVEN DAYS completed doxycycline mo nohydrate 100 MG Oral Capsule MARILIA ([facility]) Oxycodone Hydrochloride 5 MG Oral Tablet oxycodone 5 mg tablet TAKE 1 TO 2 TABLETS BY MOUTH EVERY FOUR HOURS NEEDED FOR PAIN MAX DAILY DOSE 12 CAPSULES oxycodone 5 mg tablet TAKE 1 TO 2 TABLETS BY MOUTH EVERY FOUR HOURS NEEDED FOR PAIN MAX DAILY DOSE 12 CAPSULES co mpleted oxycodone hydrochloride 5 MG Oral Tablet MARILIA ([facility]) Oxycodone Hydrochloride 5 MG Oral Tablet oxycodone 5 mg tablet TAKE 1 TO 2 TABLETS BY MOUTH EVERY FOUR HOURS NEEDED FOR PAIN MAX DAILY DOSE 12 CAPSULES oxycodone 5 mg tablet TAKE 1 TO 2 TABLETS BY MOUTH EVERY FOUR HOURS NEEDED FOR PAIN MAX DAILY DOSE 12 CAPSULES co mpleted oxycodone hydrochloride 5 MG Oral Tablet MARILIA ([facility]) Methylprednisolone 2 MG Oral Tablet [Med rol] Medrol 2 mg tablet 1 tablet every other day Medrol 2 mg tablet 1 tablet every other day completed methylprednisolone 2 MG Oral Tablet [Medrol] MARILIA ([facility]) Oxycodone Hydrochloride 5 MG Oral Tablet oxycodone 5 mg tablet TAKE 1 TO 2 TABLETS BY MOUTH EVERY FOUR HOURS NEEDED FOR PAIN MAX DAILY DOSE 12 CAPSULES oxycodone 5 mg tablet TAKE 1 TO 2 TABLETS BY MOUTH EVERY FOUR HOURS NEEDED FOR PAIN MAX DAILY DOSE 12 CAPSULES co mpleted oxycodone hydrochloride 5 MG Oral Tablet MARILIA ([facility]) Methylprednisolone 4 MG Oral Tablet methylprednisolone 4 mg tablet 1 tab daily methylprednisolone 4 mg tablet 1 tab daily completed methylprednisolone 4 MG Oral Tablet MARILIA ([facility]) Doxycycline Monohydrate 100 MG Oral Caps ule doxycycline monohydrate 100 mg capsule TAKE ONE CAPSULE BY MOUTH TWICE DAILY FOR SEVEN DAYS doxycycline monohydrate 100 mg capsule TAKE ONE CAPSULE BY MOUTH TWICE DAILY FOR SEVEN DAYS completed doxycycline mo nohydrate 100 MG Oral Capsule MARILIA ([facility])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 ANSI-Medicaid [id number] ANSI-Medicaid [id number] Problems, Conditions, and Diagnoses Code Display Name Description Problem Type Effective Dates Data Source(s) N95.2 Postmenopausal atrophic vaginitis N95.2 - Postmenopausal atrophic vaginitis Diagnosis 08/11/2020 11:00:00 PM EDT [facility] R30.0 Dysuria R30.0 - Dysuria Diagnosis 07/14/2020 11:00:00 PM EDT [facility] 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, 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 N31.0 - Uninhibited neuropathic bladder, not elsewhere classified Diagnosis 04/07/2020 09:05:00 PM EST [facility] Z87.440 Personal history of urinary (tract) infe ctions Z87.440 - Personal history of urinary (tract) infections Diagnosis 04/07/2020 09:05:00 PM EST [facility] R35.0 Frequency of micturition R35.0 - Frequency of micturit ion Diagnosis 01/10/2020 11:00:00 PM EST [facility] R31.0 Gross hematuria R31.0 - Gross hematuria Diagnosis 1 11:00:00 PM EDT [facility] R04.0 [id number] Recurrent epistaxis Problem 11/14/2020 12:00 :00 AM EDT eCW1 ([facility]) D50.9 Iron deficiency anemia Anemia, iron deficiency Problem 07/04/2020 12:00:00 AM EDT eCW1 ([facility]) K59.00 [id number] Constipation, unspecified constipation ty pe Problem 05/26/2020 12:00:00 AM EDT eCW1 ([facility]) F41.9 [id number] Anxiety Problem 05/12/2020 12:00:00 AM ES T eCW1 ([facility]) Surgeries/Procedures Procedure Description Date Indications Data Source(s) ECG ROUTINE ECG W/LEAST 12 LDS W/I&R 11/14/2020 12:00: 00 AM EDT eCW1 ([facility]) ARTHROCENTESIS ASPIR&/INJECTION MAJOR JT/BURSA 021 12:00:00 AM EDT [facility] ([facility]) RADIOLOGIC EXAMINATION KNEE 3 VIEWS 10/23/2020 12:00:0 0 AM EDT [facility] ([facility]) RADIOLOGIC EXAMINATION KNEE 3 VIEWS 10/23/2020 12:00:0 0 AM EDT [facility] ([facility]) OFFICE OUTPATIENT VISIT 25 MINUTES 10/23/2020 12:00:00 AM EDT [facility] ([facility]) OFFICE OUTPATIENT NEW 45 MINUTES 10/15/2020 12:00:00 A M EDT [facility] ([facility] ) Spirometry 10/08/2020 12:00:00 AM EDT M EDENT ([facility]) OFFICE OUTPATIENT VISIT 25 MINUTES 10/08/2020 12:00:00 AM EDT [facility] ([facility]) US RETROPERITONEAL REAL TIME W/IMAGE LIMITED 12:00:00 AM EDT [facility] ([facility]) US RETROPERITONEAL REAL TIME W/IMAGE LIMITED 12:00:00 AM EDT [facility] ([facility]) ARTHROCENTESIS ASPIR&/INJECTION MAJOR JT/BURSA 021 12:00:00 AM EDT [facility] ([facility]) Cystourethroscopy, W/[employer] Cryosurgery Or Laser Garza rg 07/23/2020 12:00:00 AM EDT [facility] ([facility]) Cystourethroscopy,/W Injects For Chemodenervation Of The Leonel dder 07/23/2020 12:00:00 AM EDT [facility] ([facility]) INSJ NON-NDWELLG BLADDER CATHETER 07/14/2020 12:00:00 AM EDT [facility] ([facility]) INSJ NON-NDWELLG BLADDER CATHETER 04/07/2020 12:00:00 AM EST [facility] ([facility]) INSJ NON-NDWELLG BLADDER CATHETER 04/07/2020 12:00:00 AM EST [facility] ([facility]) ARTHROCENTESIS ASPIR&/INJECTION MAJOR JT/BURSA 021 12:00:00 AM EST [facility] ([facility]) INSJ NON-NDWELLG BLADDER CATHETER 01/10/2020 12:00:00 AM EST [facility] ([facility]) BLDR IRRIGATION SMPL LAVAGE&/INSTLJ 12/11/2019 12:00:0 0 AM EDT [facility] ([facility]) CYSTOURETHROSCOPY 12/11/2019 12:00:00 AM EDT [facility] ([facility]) Cystourethroscopy, W/[employer] Cryosurgery Or Laser Garza rg 11/27/2019 12:00:00 AM EDT [facility] ([facility]) Cystourethroscopy,/W Injects For Chemodenervation Of The Leonel dder 11/27/2019 12:00:00 AM EDT [facility] ([facility]) Results ID Date Data Source [id number] 12/29/2020 04:17:00 PM EDT [facility] Name Value Range Interpretation Code Description Data Tashia rce(s) Supporting Document(s) SARS-CoV-2 (COVID 19) NEGATIVE - SARS-CoV-2 (COVID19) [facility] This lab was ordered by [facility] a nd reported by [facility]. ID Date Data Source [id number] 12/27/2020 09:35:00 AM EDT [facility] Name Value Range Interpretation Code Description Data Tashia rce(s) Supporting Document(s) SARS-CoV-2 (COVID-19) RNA [Presence] in Respiratory specimen by PHANI with probe detection Not Detected [facility] This lab was ordered by [facility] and reported by [employer] [facility]. ID Date Data Source [id number] 12/24/2020 12:00:00 AM EDT [facility] Name Value Range Interpretation Code Description Data Tashia rce(s) Supporting Document(s) SARS-CoV2 Rapid Antigen Negative [facility] This lab was ordered by [facility] and reported by [facility]. ID Date Data Source [id number] 11/26/2020 11:30:00 AM EDT [facility] Name Value Range Interpretation Code Description Data Tashia rce(s) Supporting Document(s) SARS-CoV-2 (COVID-19) RNA [Presence] in Respiratory specimen by PHANI with probe detection Not Detected [facility] This lab was ordered by [facility] and reported by [employer]. ID Date Data Source CBC with Differential 11/14/2020 12:00:00 AM EDT eCW1 ([facility]) Name Value Range Interpretation Code Description Data Tashia rce(s) Supporting Document(s) 8.1 4.0-10.0 WHITE BLOOD COUNT eCW1 ([facility]) 3.63 4.00-5.40 RED BLOOD COUNT eCW1 ([facility]) 9.5 12.0-15.5 HEMOGLOBIN eCW1 ([facility]) 86.2 80.0-96.0 MEAN CORPUSCULAR VOLUME e CW1 ([facility]) 31.3 36.0-47.0 HEMATOCRIT eCW1 ([facility]) 30.4 32.0-36.5 MEAN CORPUSCULAR HGB CONC eCW1 ([facility]) 26.2 27.0-33.0 MEAN CORPUSCULAR HEMOGLOB IN eCW1 ([facility] [facility] [place]) 15.8 11.5-14.5 RED CELL DISTRIBUTION WID TH eCW1 ([facility]) 342 150-450 PLATELET COUNT, AUTOMATED eCW1 ([facility]) 51.9 36.0-66.0 NEUTROPHILS % eCW1 ([facility]) 5.0 2.0-8.0 MONO % eCW1 ([facility]) 39.4 24.0-44.0 LYMPH % eCW1 ([facility]) 0.9 0.0-1.0 BASO % eCW1 ([facility]) 2.4 0.0-3.0 EOS % eCW1 ([facility]) 4.2 1.5-8.5 NEUTROPHILS # eCW1 ([facility]) 3.2 1.5-5.0 LYMPH # eCW1 ([facility]) 0.2 0.0-0.5 EOS # eCW1 ([facility]) 0.4 0.0-0.8 MONO # eCW1 ([facility]) 0.1 0.0-0.2 BASO # eCW1 ([facility]) ID Date Data Source NT-PRO BNP 11/14/2020 12:00:00 AM EDT eCW1 ([facility]ly [facility]) Name Value Range Interpretation Code Description Data Tashia rce(s) Supporting Document(s) 57 <125 NT-PRO BNP eCW1 (Formerly [facility]) ID Date Data Source FREE T4 & TSH PANEL 11/14/2020 12:00:00 AM EDT eCW1 (Formerly [facility]) Name Value Range Interpretation Code Description Data Tashia rce(s) Supporting Document(s) 1.320 0.358-3.740 THYROID STIMULATING HORM ONE eCW1 ([facility]) 1.10 0.76-1.46 FREE T4 eCW1 ([facility]) ID Date Data Source MAGNESIUM LEVEL 11/14/2020 12:00:00 AM EDT eCW1 ([facility]ly [facility]) Name Value Range Interpretation Code Description Data Tashia rce(s) Supporting Document(s) 2.0 1.8-2.4 MAGNESIUM LEVEL eCW1 ([facility]) ID Date Data Source PT & APTT 11/14/2020 12:00:00 AM EDT eCW1 ([facility]ly [facility]) Name Value Range Interpretation Code Description Data Tashia rce(s) Supporting Document(s) 12.5 12.7-14.5 PROTHROMBIN TIME eCW1 ([facility]) 0.89 INR eCW1 ([facility]) 27.5 25.9-37.0 PARTIAL THROMBOPLASTIN TI ME eCW1 ([facility]) ID Date Data Source UA URINALYSIS 11/14/2020 12:00:00 AM EDT eCW1 ([facility]ly [facility]) Name Value Range Interpretation Code Description Data Tashia rce(s) Supporting Document(s) Laboratory studies (set) UA URINALYS IS eCW1 ([facility]) ID Date Data Source Comprehensive Metabolic Profile (CMP) 11/14/2020 12:00:00 AM EDT eCW1 ([facility]) Name Value Range Interpretation Code Description Data Tashia rce(s) Supporting Document(s) 64 70-100 GLUCOSE, FASTING eCW1 ([facility]) 15 7-18 BLOOD UREA NITROGEN eCW1 ([facility]) 0.72 0.55-1.30 CREATININE FOR GFR eCW1 ([facility]) > 60.0 >45 GLOMERULAR FILTRATION RATE eCW 1 ([facility]) 137 136-145 SODIUM LEVEL eCW1 ([facility]) 102 98-107 CHLORIDE LEVEL eCW1 ([facility]) 4.3 3.5-5.1 POTASSIUM SERUM eCW1 ([facility]) 28 21-32 CARBON DIOXIDE LEVEL eCW1 ([facility]) 8.8 8.8-10.2 CALCIUM LEVEL eCW1 ([facility]) 21 7-37 AST/SGOT eCW1 ([facility]) 30 12-78 ALT/SGPT eCW1 ([facility]) 95 45-117 ALKALINE PHOSPHATASE eCW1 ([facility] access hospital) 0.9 0.2-1.0 BILIRUBIN,TOTAL eCW1 ([facility]) 6.8 6.4-8.2 TOTAL PROTEIN eCW1 ([facility]) 3.3 3.2-5.2 ALBUMIN eCW1 ([facility]) 0.9 1.2-2.2 ALBUMIN/GLOBULIN RATIO eCW1 ([facility]) ID Date Data Source FERRITIN 11/14/2020 12:00:00 AM EDT eCW1 ([facility]) Name Value Range Interpretation Code Description Data Tashia rce(s) Supporting Document(s) 8 8-252 FERRITIN eCW1 ([facility]) ID Date Data Source URINE CULTURE 11/14/2020 12:00:00 AM EDT eCW1 ([facility]) Name Value Range Interpretation Code Description Data Tashia rce(s) Supporting Document(s) Laboratory studies (set) URINE CULTU RE eCW1 ([facility]) ID Date Data Source [id number] 10/21/2020 04:25:00 PM EDT MEDENT ([facility], ) Name Value Range Interpretation Code Description Data Tashia rce(s) Supporting Document(s) White Blood Count 7.7 10 4.0-10.0 Normal (applies to non-numeri c results) [facility] ([facility]) Red Blood Count 4.17 10 4.00-5.40 Normal (applies to non-numeric results) [facility] ([facility]) Hemoglobin 11.0 g/dL 12.0-15.5 Below low normal [facility] ( [facility]) Hematocrit 35.5 % 36.0-47.0 Below low normal [facility] ( [facility]) Mean Corpuscular Hemoglobin 26.4 pg 27.0-33.0 Below low normal [facility] ([facility]) Mean Corpuscular Volume 85.1 fl 80.0-96.0 Normal ( applies to non-numeric results) [facility] ([facility]) Mean Corpuscular HGB Conc 31.0 g/dL 32.0-36.5 Below low normal [facility] ([facility]) Red Cell Distribution Width 15.9 % 11.5-14.5 Above high normal [facility] ([facility]) Platelet Count, Automated 346 10 150-450 Normal (applies to non-numeric results) [facility] ([facility]) Nucleated Red Blood Cell % 0.0 % 0-0 Normal (applies to n on-numeric results) [facility] ([facility]) 11/11/20 (TueNov 11) 09:16 AM MICHAEL ABERNATHY Continues to have anemia. Will further evaluate. ID Date Data Source [id number] 10/21/2020 04:25:00 PM EDT [facility] ([facility]) Name Value Range Interpretation Code Description Data Tashia rce(s) Supporting Document(s) Iron (Fe) 35 ug/dL 50-170 Below low normal [facility] ( [facility]) Total Iron Binding Capacity 487 ug/dL 250-450 Above high normal [facility] ([facility]) Percent Saturation 7.2 % 13.2-45.0 Below low normal [facility] ([facility]) 11/11/20 (TueNov 11) 09:16 AM MICHAEL KEENEMAXINESILVINA Iron deficiency noted. Continue to take iron supplement as directed. Will further evaluate. ID Date Data Source [id number] 10/21/2020 04:25:00 PM EDT [facility] ([facility]) Name Value Range Interpretation Code Description Data Tashia rce(s) Supporting Document(s) Urea nitrogen [Mass/volume] in Serum or Plasma 14 mg/dL 7 -18 Normal (applies to non-numeric results) [facility] ([facility]) ID Date Data Source [id number] 10/21/2020 04:25:00 PM EDT [facility] ([facility]) Name Value Range Interpretation Code Description Data Tashia rce(s) Supporting Document(s) Creatinine For GFR 0.72 mg/dL 0.55-1.30 Normal (applies to non -numeric results) [facility] ([facility]) Glomerular Filtration Rate Laboratory test result Normal (applies to non- numeric results) [facility] ([facility]) <content>Units are mL/min/1.73 m2</content>
<content></content>
<content>Chronic Kidney Disease Staging per NKF:</content>
<content></content>
<content>Stage I & II GFR >=60 Normal to Mildly Decreased</content>
<content>Stage III GFR 30- 59 Moderately Decreased</content>
<content>Stage IV GFR 15-29 Severely Decreased</content>
<content>Stage V GFR <15 Very Little GFR Left</content>
<content>ESRD GFR <15 on AS400 OPERATOR</content>
<content></content> ID Date Data Source [id number] 10/20/2020 12:00:00 AM EDT [facility] Name Value Range Interpretation Code Description Data Tashia rce(s) Supporting Document(s) SARS-CoV-2 NEGATIVE [facility] This lab was ordered by [facility]-COVID19 and reported by [employer]. ID Date Data Source [id number] 10/20/2020 12:00:00 AM EDT MARILIA ([facility]) Name Value Range Interpretation Code Description Data Tashia rce(s) Supporting Document(s) ID Date Data Source [id number] 10/20/2020 12:00:00 AM EDT MARILIA ([facility]) Name Value Range Interpretation Code Description Data Tashia rce(s) Supporting Document(s) SARS-CoV-2 (COVID-19) RNA [Presence] in Respiratory specimen by PHANI with probe detection negative negative Sars-cov-2 MARILIA ([facility]) ID Date Data Source [id number] 10/08/2020 09:54:00 AM EDT MEDENT ([facility], ) Name Value Range Interpretation Code Description Data Tashia rce(s) Supporting Document(s) PDFReport Laboratory test result MED[facility] ([facility], ) FVC-Pred 3.44 L [facility] ([facility]) FVC-%Pred-Pre 69 L [facility] ([facility]) FVC-Pre 2.38 L [facility] ([facility]) Fev1-Pred 2.64 L [facility] ([facility]) FVC-LLN 2.70 L [facility] ([facility]) Fev1-Pre 1.77 L MED[facility] ([facility], ) Fev1-%Pred-Pre 67 L MED[facility] ([facility], ) Fev1-LLN 2.01 L [facility] ([facility], ) Fev6-Pre 2.35 L [facility] ([facility], ) Fev6-Pred 3.31 L [facility] ([facility]) Fev6-LLN 2.59 L [facility] ([facility]) Fev6-%Pred-Pre 71 L MED[facility] ([facility], ) Ive5cvo-Bfjc 77 % [facility] ([facility]) Ati9xgl-Ysj 74 % [facility] ([facility]) Ocy5fnt-AAL 67 % [facility] ([facility]) Rry0tjg-%Pred-Pre 96 % [facility] ([facility]) Alx9tqb-%Pred-Pre 102 % [facility] ([facility]) Rwj8sux-Kqh 99 % [facility] ([facility]) Foc1jjm-Ydru 96 % [facility] ([facility]) FEFMax-Pre 5.14 L/E/sec [facility] ([facility]) FEFMax-Pred 6.37 L/E/sec [facility] ([facility], ) FEFMax-%Pred-Pre 80 L/E/sec [facility] ([facility]) FEFMax-LLN 4.55 L/E/sec [facility] ([facility]) Soc3368-%Pred-Pre 56 L/E/sec [facility] ([facility]) Zaa5865-Tpxh 2.29 L/E/sec [facility] ([facility]) Ntj1067-Zvx 1.30 L/E/sec [facility] ([facility], ) ExpTime-Pre 7.83 sec [facility] ([facility]) Ifb2173-WWW 0.97 L/E/sec [facility] ([facility]) Igc9qrz8-Mkvl 80 % [facility] ([facility], ) Smu6sxw7-Iuk 75 % [facility] ([facility]) Nws1yfj1-%Pred-Pre 93 % [facility] ([facility], ) Tqc3cfr3-IAV 71 % [facility] ([facility], ) ID Date Data Source [id number] 08/11/2020 04:02:00 PM EDT [facility] ([facility]) Name Value Range Interpretation Code Description Data Tashia rce(s) Supporting Document(s) Linda sp rRNA [Presence] in Vaginal fluid by DNA probe Lab oratory test result Abnormal (applies to non-numeric results) [facility] ([facility]) Gardnerella By Dna Probe Laboratory test result [facility] ([facility]) Trichomonas vaginalis rRNA [Presence] in Genital speci men by DNA probe Laboratory test result [facility] ([facility]) TESTING PERFORMED BY NUCLEIC ACID HYBRID IZATION ID Date Data Source [id number] 08/11/2020 04:02:00 PM EDT [facility] Name Value Range Interpretation Code Description Data Tashia rce(s) Supporting Document(s) Bacteria identified in Vaginal fluid by Aerobe culture Laborator y test result [facility] ([facility]) ID Date Data Source [id number] 08/12/2020 12:21:00 PM EDT [facility] Name Value Range Interpretation Code Description Data Tashia rce(s) Supporting Document(s) LINDA BY DNA PROBE POSITIVE NEGATIVE [facility] GARDNERELLA BY DNA PROBE NEGATIVE NEGATIVE [facility] TRICHOMONAS BY DNA PROBE NEGATIVE NEGATIVE [facility] TESTING PERFORMED BY NUCLEIC ACID HYBRI DIZATION ID Date Data Source [id number] 08/11/2020 03:39:00 PM EDT [facility] ([facility]) Name Value Range Interpretation Code Description Data Tashia rce(s) Supporting Document(s) Protein [Presence] in Urine by Test strip 30 mg/dL [facility] ([facility]) Glucose [Presence] in Urine 100 mg/dL [facility] ([facility]) Ua Nitrite Laboratory test result [facility] ([facility]) Ua Leuko Laboratory test result [facility] ([facility]) Color of Urine Laboratory test result [facility] ([facility]) Blood [Presence] in Urine by Visual Laboratory test result [facility] ([facility]) Ketones [Presence] in Urine by Test strip Laboratory test result [facility] ([facility]) Clarity of Urine Laboratory test result [facility] ([facility]) pH of Urine by Test strip 7.0 5.0-7.5 [facility] ([facility]) Ua Specific [place]lin 1.020 1.003-1.030 MEDE NT ([facility]) Urobilinogen [Mass/volume] in Urine by Test strip 0.2 E.U./dL 0.0-1.0 [facility] ([facility]) Bilirubin.total [Presence] in Urine by Test strip Laboratory test res ult [facility] ([facility]) ID Date Data Source [id number] 08/11/2020 12:00:00 AM EDT MARILIA ([facility]) Name Value Range Interpretation Code Description Data Tashia rce(s) Supporting Document(s) ID Date Data Source [id number] 08/11/2020 12:00:00 AM EDT [facility] Name Value Range Interpretation Code Description Data Tashia rce(s) Supporting Document(s) SARS-CoV-2 NEGATIVE [facility] This lab was ordered by [facility] and reported by [employer]. ID Date Data Source [id number] 08/11/2020 12:00:00 AM EDT MARILIA ([facility]) Name Value Range Interpretation Code Description Data Tashia rce(s) Supporting Document(s) ID Date Data Source [id number] 08/11/2020 12:00:00 AM EDT MARILIA ([facility]) Name Value Range Interpretation Code Description Data Tashia rce(s) Supporting Document(s) ID Date Data Source [id number] 07/23/2020 09:44:00 AM EDT [facility] ([facility]) Name Value Range Interpretation Code Description Data Tashia rce(s) Supporting Document(s) Glucose [Presence] in Urine Laboratory test result [facility] ([facility]) Ua Nitrite Laboratory test result [facility] ([facility]) Protein [Presence] in Urine by Test strip Laboratory test result [facility] ([facility]) Ua Leuko Laboratory test result [facility] ([facility]) Blood [Presence] in Urine by Visual Laboratory test result [facility] ([facility]) Ketones [Presence] in Urine by Test strip Laboratory test result [facility] ([facility]) Color of Urine Laboratory test result [facility] ([facility]) Ua Specific [place]lin 1.025 1.003-1.030 MEDE NT ([facility]) Clarity of Urine Laboratory test result [facility] ([facility]) pH of Urine by Test strip 7.0 5.0-7.5 [facility] ([facility]) Bilirubin.total [Presence] in Urine by Test strip Laboratory test res ult [facility] ([facility]) Urobilinogen [Mass/volume] in Urine by Test strip 0.2 E.U./dL 0.0-1.0 [facility] ([facility]) ID Date Data Source [id number] 07/14/2020 03:26:00 PM EDT [facility] ([facility]) Name Value Range Interpretation Code Description Data Tashia rce(s) Supporting Document(s) Bacteria identified in Urine by Culture Laboratory test result [facility] ([facility]) <content> --------</content>
<content>Run: 07/16/20 0832 INTERFACED REPORT</content>
<content> </content>
<content>Name: Trini Jiang Age/Sex: 65/F Location: [facility]</content>
<content>Acct: [id number] Unit: [id number] Status: REG REF Room/Bed:</content>
<content>Re07/14/20 Disch: Junior Dr: Monica Bal MD</content>
<content> </content>
<content></content>
<content>Specimen #: [id number] Ordered : 07/14/2012/25/1809</content>
<content>Collected : 07/14/2012/26/1515 By: [...] REPORT </content>
<content></content> ID Date Data Source [id number] 07/16/2020 08:32:00 AM ARMANDO [facility] Run: 07/16/20 0832 INTERFACED REPORT Name: Trini Jiang Age/Sex: 65/F Location: [facility] Acct: [id number] Unit: [id number] Status: REG REF Room/Bed: Re07/14/20 Disch: Att Dr: Monica Bal MD Specimen #: [id number] Ordered : 07/14/2012/25/1809 Collected : 07/14/2012/26/1515 By: [...] e(s) Supporting Document(s) ID Date Data Source [id number] 07/14/2020 03:15:00 PM EDT [facility] ([facility]) Name Value Range Interpretation Code Description Data Tashia rce(s) Supporting Document(s) Glucose [Presence] in Urine Laboratory test result [facility] ([facility]) Ua Nitrite Laboratory test result [facility] ([facility]) Protein [Presence] in Urine by Test strip 30 mg/dL [facility] ([facility]) Blood [Presence] in Urine by Visual Laboratory test result [facility] ([facility]) Ua Leuko Laboratory test result [facility] ([facility]) Clarity of Urine Laboratory test result [facility] ([facility]) Ketones [Presence] in Urine by Test strip Laboratory test result [facility] ([facility]) Color of Urine Laboratory test result [facility] ([facility]) pH of Urine by Test strip 5.0 5.0-7.5 [facility] ([facility]) Ua Specific Hamlin Laboratory test result 1.003-1.030 [facility] ([facility]) Bilirubin.total [Presence] in Urine by Test strip Laboratory test res ult [facility] ([facility]) Urobilinogen [Mass/volume] in Urine by Test strip 0.2 E.U./dL 0.0-1.0 [facility] ([facility]) ID Date Data Source [id number] 07/14/2020 03:07:00 PM EDT [facility] ([facility]) Name Value Range Interpretation Code Description Data Tashia rce(s) Supporting Document(s) Glucose [Presence] in Urine Laboratory test result [facility] ([facility]) Protein [Presence] in Urine by Test strip 30 mg/dL [facility] ([facility]) Ua Nitrite Laboratory test result [facility] ([facility]) Ua Leuko Laboratory test result [facility] ([facility]) Blood [Presence] in Urine by Visual Laboratory test result [facility] ([facility]) Color of Urine Laboratory test result [facility] ([facility]) Clarity of Urine Laboratory test result [facility] ([facility]) Ketones [Presence] in Urine by Test strip Laboratory test result [facility] ([facility]) pH of Urine by Test strip 5.0 5.0-7.5 [facility] ([facility]) Ua Specific Hamlin Laboratory test result 1.003-1.030 [facility] ([facility]) Bilirubin.total [Presence] in Urine by Test strip Laboratory test res ult [facility] ([facility]) Urobilinogen [Mass/volume] in Urine by Test strip 0.2 E.U./dL 0.0-1.0 [facility] ([facility]) ID Date Data Source [id number] 07/04/2020 12:00:00 AM EDT eCW1 ([facility]) Name Value Range Interpretation Code Description Data Tashia rce(s) Supporting Document(s) Hemoglobin A1c/Hemoglobin.total in Blood 6.6 HEMOGLOBIN A1c eCW1 ([facility]) ID Date Data Source LIPID PANEL (CARDIAC RISK) 07/04/2020 12:00:00 AM EDT eCW1 ( [facility]) Name Value Range Interpretation Code Description Data Tashia rce(s) Supporting Document(s) Cholesterol [Moles/volume] in Serum or Plasma 156 <200 CHOLESTEROL LEVEL eCW1 ([facility]) Triglyceride [Mass/volume] in Serum or Plasma by calculation 92 <150 TRIGLYCERIDES LEVEL eCW1 ([facility]) Cholesterol in LDL [Mass/volume] in Serum or Plasma by calculation 65 <100 LDL CHOLESTEROL eCW1 ([facility]) Cholesterol in HDL [Moles/volume] in Serum or Plasma 73 >40 HDL CHOLESTEROL eCW1 ([facility]) 83 NON-HDL-C eCW1 ([facility]) 2.136 <5 CHOLESTEROL RISK RATIO eCW1 ([facility]) ID Date Data Source IRON (FE) 05/26/2020 12:00:00 AM EDT eCW1 ([facility]) Name Value Range Interpretation Code Description Data Tashia rce(s) Supporting Document(s) 46 50-170 eCW1 ([facility]) ID Date Data Source CBC with Auto Differential 05/26/2020 12:00:00 AM EDT eCW1 ( [facility]) Name Value Range Interpretation Code Description Data Tashia rce(s) Supporting Document(s) 33.8 36.0-47.0 eCW1 ([facility]) 10.8 12.0-15.5 eCW1 ([facility]) 7.7 4.0-10.0 eCW1 ([facility]) 89.9 80.0-96.0 eCW1 ([facility]) 3.76 4.00-5.40 eCW1 ([facility]) 14.1 11.5-14.5 eCW1 ([facility]) 32.0 32.0-36.5 eCW1 ([facility]) 28.7 27.0-33.0 eCW1 ([facility]) 343 150-450 eCW1 ([facility]) 4.7 0.0-3.0 eCW1 ([facility]) 32.1 24.0-44.0 eCW1 ([facility] [facility]) 6.1 2.0-8.0 eCW1 ([facility]) 55.9 36.0-66.0 eCW1 ([facility]) 0.0 0-0 eCW1 ([facility]) 4.3 1.5-8.5 eCW1 ([facility]) 0.4 0-3.0 eCW1 ([facility]) 0.8 0.0-1.0 eCW1 ([facility]) 0.1 0.0-0.2 eCW1 ([facility]) 2.5 1.5-5.0 eCW1 ([facility]) 0.5 0.0-0.8 eCW1 ([facility]) 0.4 0.0-0.5 eCW1 ([facility]) ID Date Data Source [id number] 05/12/2020 12:00:00 AM EST eCW1 ([facility]) Name Value Range Interpretation Code Description Data Tashia rce(s) Supporting Document(s) Microalbumin/Creatinine [Ratio] in Urine 8.9 0.0-30.0 eCW1 ([facility]) Albumin/Creatinine [Mass Ratio] in Urine 9.8 eCW1 ([facility]) Microalbumin/Creatinine [Mass Ratio] in Urine 109.0 eCW1 ([facility]) ID Date Data Source [id number] 04/29/2020 06:29:00 AM EST [facility] Name Value Range Interpretation Code Description Data Tashia rce(s) Supporting Document(s) SARS-CoV-2 (COVID 19) NEGATIVE - SARS-CoV-2 (COVID19) [facility] This lab was ordered by [facility] a nd reported by [facility]. ID Date Data Source [id number] 04/09/2020 10:42:00 AM EST [facility] Run: 04/09/20 1043 INTERFACED REPORT Name: ApolinarTrini Age/Sex: 64/F Location: [facility] Acct: [id number] Unit: [id number] Status: REG REF Room/Bed: Re04/07/20 Disch: Junior Dr: Monica Bal MD Specimen #: [id number] Ordered : 04/07/2003/27/1856 Collected : 04/07/2003/27/1329 By: [...] Name Value Range Interpretation Code Description [facility] Supporting Document(s) ID Date Data Source [id number] 04/07/2020 01:30:00 PM EST [facility] ([facility]) Name Value Range Interpretation Code Description Data Tashia e(s) Supporting Document(s) Glucose [Presence] in Urine Laboratory test result [facility] ([facility]) Ua Nitrite Laboratory test result ME DENT ([facility]) Protein [Presence] in Urine by Test strip Laboratory test result [facility] ([facility]) Ua Leuko Laboratory test result [facility] ([facility]) Blood [Presence] in Urine by Visual Laboratory test result [facility] ([facility]) Color of Urine Laboratory test result [facility] ([facility]) Ketones [Presence] in Urine by Test strip Laboratory test result [facility] ([facility]) Clarity of Urine Laboratory test result [facility] ([facility]) pH of Urine by Test strip 5.0 5.0-7.5 [facility] ([facility]) Ua Specific Hamlin 1.025 1.003-1.030 MEDE NT ([facility]) Bilirubin.total [Presence] in Urine by Test strip Laboratory test res ult [facility] ([facility]) Urobilinogen [Mass/volume] in Urine by Test strip 0.2 E.U./dL 0.0-1.0 [facility] ([facility]) ID Date Data Source [id number] 04/07/2020 01:30:00 PM EST [facility] ([facility]) Name Value Range Interpretation Code Description Data Tashia rce(s) Supporting Document(s) Bacteria identified in Urine by Culture Laboratory test result [facility] ([facility]) <content>Run: 04/09/20 1043 INTERFACED REPORT</content>
<content> ntent>Name: Trini Jiang Age/Sex: 64/F Location: [facility]</content>
<content>Acct: [id number] Unit: [id number] Status: REG REF Room/Bed:</content>
<content>Re04/07/20 Disch: Att Dr: Monica Bal MD</content>
<content> </content>
<content></content>
<content>Specimen #: [id number] Ordered : 04/07/2003/27/1856</content>
<content>Collected : 04/07/2003/27/1329 By: [...] REPORT </content>
<content></content> ID Date Data Source [id number] 04/07/2020 01:23:00 PM EST [facility]REMY ([facility]) Name Value Range Interpretation Code Description Data Tashia rce(s) Supporting Document(s) Glucose [Presence] in Urine Laboratory test result [facility] ([facility]) Protein [Presence] in Urine by Test strip Laboratory test result [facility] ([facility]) Ua Leuko Laboratory test result ME DENT ([facility]) Ua Nitrite Laboratory test result [facility] ([facility]) Color of Urine Laboratory test result [facility] ([facility]) Blood [Presence] in Urine by Visual Laboratory test result [facility] ([facility]) Ketones [Presence] in Urine by Test strip Laboratory test result [facility] ([facility]) Clarity of Urine Laboratory test result [facility] ([facility]) Ua Specific Hamlin Laboratory test result 1.003-1.030 [facility] ([facility]) pH of Urine by Test strip 5.0 5.0-7.5 [facility] ([facility]) Urobilinogen [Mass/volume] in Urine by Test strip 0.2 E.U./dL 0.0-1.0 [facility] ([facility]) Bilirubin.total [Presence] in Urine by Test strip Laboratory test res ult [facility]MY ([facility]) ID Date Data Source [id number] 03/26/2020 12:00:00 AM EST MARILIA ([facility]) Name Value Range Interpretation Code Description Data Tashia rce(s) Supporting Document(s) ID Date Data Source [id number] 03/26/2020 12:00:00 AM EST MARILIA ([facility]) Name Value Range Interpretation Code Description Data Tashia rce(s) Supporting Document(s) SARS-CoV-2 (COVID-19) RNA [Presence] in Respiratory specimen by PHANI with probe detection negative negative Sars-cov-2 [place] ([facility]) ID Date Data Source [id number] 03/26/2020 12:00:00 AM EST MARILIA ([facility]) Name Value Range Interpretation Code Description Data Tashia rce(s) Supporting Document(s) ID Date Data Source [id number] 03/26/2020 12:00:00 AM EST MARILIA ([facility]) Name Value Range Interpretation Code Description Data Tashia rce(s) Supporting Document(s) SARS-CoV-2 (COVID-19) RNA [Presence] in Respiratory specimen by PHANI with probe detection negative negative Sars-cov-2 [facility] ([facility]) ID Date Data Source [id number] 03/26/2020 12:00:00 AM EST [facility] ([facility]) Name Value Range Interpretation Code Description Data Tashia rce(s) Supporting Document(s) ID Date Data Source [id number] 03/26/2020 12:00:00 AM EST [facility] ([facility]) Name Value Range Interpretation Code Description Data Tashia rce(s) Supporting Document(s) SARS-CoV-2 (COVID-19) RNA [Presence] in Respiratory specimen by PHANI with probe detection negative negative Sars-cov-2 [facility] ([facility]) ID Date Data Source [id number] 03/26/2020 12:00:00 AM EST [facility] Name Value Range Interpretation Code Description Data Tashia rce(s) Supporting Document(s) SARS-CoV-2 NEGATIVE [facility] This lab was ordered by [facility] and reported by [facility]. ID Date Data Source [id number] 03/26/2020 12:00:00 AM EST [place]ILIA ([facility]) Name Value Range Interpretation Code Description Data Tashia rce(s) Supporting Document(s) ID Date Data Source [id number] 03/26/2020 12:00:00 AM EST [place] ([facility]) Name Value Range Interpretation Code Description Data Tashia rce(s) Supporting Document(s) SARS-CoV-2 (COVID-19) RNA [Presence] in Respiratory specimen by PHANI with probe detection negative negative Sars-cov-2 [facility] ([facility]) ID Date Data Source [id number] 03/26/2020 12:00:00 AM EST [facility] ([facility]) Name Value Range Interpretation Code Description Data Tashia rce(s) Supporting Document(s) ID Date Data Source [id number] 03/26/2020 12:00:00 AM EST [facility] ([facility]) Name Value Range Interpretation Code Description Data Tashia rce(s) Supporting Document(s) SARS-CoV-2 (COVID-19) RNA [Presence] in Respiratory specimen by PHANI with probe detection negative negative Sars-cov-2 [facility] ([facility]) ID Date Data Source [id number] 03/26/2020 12:00:00 AM EST [facility] ([facility]) Name Value Range Interpretation Code Description Data Tashia rce(s) Supporting Document(s) ID Date Data Source [id number] 03/26/2020 12:00:00 AM EST [place] ([facility]) Name Value Range Interpretation Code Description Data Tashia rce(s) Supporting Document(s) SARS-CoV-2 (COVID-19) RNA [Presence] in Respiratory specimen by PHANI with probe detection negative negative Sars-cov-2 [facility] ([facility]) ID Date Data Source [id number] 03/26/2020 12:00:00 AM EST [facility] ([facility]) Name Value Range Interpretation Code Description Data Tashia rce(s) Supporting Document(s) ID Date Data Source [id number] 03/26/2020 12:00:00 AM EST [place] ([facility]) Name Value Range Interpretation Code Description Data Tashia rce(s) Supporting Document(s) SARS-CoV-2 (COVID-19) RNA [Presence] in Respiratory specimen by PHANI with probe detection negative negative Sars-cov-2 [facility]) ID Date Data Source [id number] 03/12/2020 10:08:00 AM EST [facility]ENT ([facility], ) Name Value Range Interpretation Code Description Data Tashia rce(s) Supporting Document(s) PDFReport Laboratory test result MEDENT ([facility], ) FVC-Pred 3.47 L MED[facility] ([facility], ) FVC-%Pred-Pre 73 L MEDENT ([facility], ) FVC-Pre 2.54 L [facility] ([facility], ) FVC-LLN 2.73 L [facility] ([facility]) Fev1-%Pred-Pre 72 L MEDENT ([facility], ) Fev1-Pre 1.92 L MEDENT ([facility], ) Fev1-Pred 2.67 L [facility] ([facility]) Fev6-Pred 3.34 L [facility] ([facility]) Fev1-LLN 2.04 L MED[facility] ([facility], ) Fev6-%Pred-Pre 75 L MEDENT ([facility], ) Xrw3oja-Eolq 77 % MEDENT ([facility]) Fev6-Pre 2.51 L [facility] ([facility]) Fev6-LLN 2.62 L [facility] ([facility]) Bcx1uwp-Tey 76 % [facility] ([facility]) Lne9qqq-%Pred-Pre 97 % [facility] ([facility]) Vxh1bwr-YDR 68 % [facility] ([facility]) Jds3efy-%Pred-Pre 102 % [facility] ([facility]) Sun0mlm-Hzbs 96 % [facility] ([facility]) Xvl0yni-Dah 99 % [facility] ([facility]) FEFMax-Pre 5.72 L/E/sec [facility] ([facility]) FEFMax-Pred 6.43 L/E/sec [facility] ([facility], ) FEFMax-%Pred-Pre 88 L/E/sec [facility] ([facility]) Psf4520-Ioss 2.34 L/E/sec [facility] ([facility]) FEFMax-LLN 4.61 L/E/sec [facility] ([facility]) Keb6937-Mki 1.46 L/E/sec [facility] ([facility]) Rfh5963-RYT 1.02 L/E/sec [facility] ([facility]) ExpTime-Pre 7.33 sec [facility] ([facility]) Fen1572-%Pred-Pre 62 L/E/sec [facility] ([facility]) Vjw5rpj8-Wao 76 % [facility] ([facility]) Ygb3alf7-%Pred-Pre 95 % [facility] ([facility]) Lzs5sua9-Dgnt 80 % [facility] ([facility]) Iax5ozy2-IJN 71 % [facility] ([facility]) ID Date Data Source [id number] 01/10/2020 02:03:00 PM EST MEDENT ([facility]) Name Value Range Interpretation Code Description Data Tashia rce(s) Supporting Document(s) Bacteria identified in Vaginal fluid by Aerobe culture Laborator y test result [facility] ([facility]) ID Date Data Source [id number] 01/11/2020 11:49:00 AM EST [facility] Name Value Range Interpretation Code Description Data Tashia rce(s) Supporting Document(s) LINDA BY DNA PROBE NEGATIVE NEGATIVE [facility] GARDNERELLA BY DNA PROBE POSITIVE NEGATIVE [facility] TRICHOMONAS BY DNA PROBE NEGATIVE NEGATIVE [facility] TESTING PERFORMED BY NUCLEIC ACID HYBRI DIZATION ID Date Data Source [id number] 01/10/2020 02:03:00 PM EST [facility] ([facility]) Name Value Range Interpretation Code Description Data Tashia rce(s) Supporting Document(s) Gardnerella By Dna Probe Laboratory test result Abnormal (applies to non- numeric results) [facility] ([facility]) Linda sp rRNA [Presence] in Vaginal fluid by DNA probe Lab oratory test result [facility] ([facility]) Trichomonas vaginalis rRNA [Presence] in Genital speci men by DNA probe Laboratory test result [facility] ([facility]) TESTING PERFORMED BY NUCLEIC ACID HYBRID IZATION ID Date Data Source [id number] 01/12/2020 11:21:00 AM EST [facility] Run: 01/12/20 1121 INTERFACED REPORT Name: Trini Jiang Age/Sex: 64/F Location: [facility] Acct: [id number] Unit: [id number] Status: REG REF Room/Bed: Re01/10/20 Disch: Junior Dr: Amira Garg PA Specimen #: [id number] Ordered : 01/10/2007/24/1930 Collected : 01/10/2007/24/1401 By: [...] rce(s) Supporting Document(s) ID Date Data Source [id number] 01/10/2020 02:02:00 PM EST [facility] ([facility]) Name Value Range Interpretation Code Description Data Tashia rce(s) Supporting Document(s) Bacteria identified in Urine by Culture Laboratory test result [facility] ([facility]) <content> --------</content>
<content>Run: 01/12/20 1121 INTERFACED REPORT</content>
<content> </content>
<content>Name: Trini Jiang Age/Sex: 64/F Location: [facility]</content>
<content>Acct: [id number] Unit: [id number] Status: REG REF Room/Bed:</content>
<content>Re01/10/20 Disch: Junior Dr: Amira Garg</content>
<content> </content>
<content></content>
<content>Specimen #: [id number] Ordered : 01/10/2007/24/1930</content>
<content>Collected : 01/10/2007/24/1401 By: [...] REPORT </content>
<content></content> ID Date Data Source [id number] 01/10/2020 02:01:00 PM EST [facility] ([facility]) Name Value Range Interpretation Code Description Data Tashia rce(s) Supporting Document(s) Glucose [Presence] in Urine Laboratory test result [facility] ([facility]) Protein [Presence] in Urine by Test strip Laboratory test result [facility] ([facility]) Ua Nitrite Laboratory test result [facility] ([facility]) Ua Leuko Laboratory test result [facility] ([facility]) Blood [Presence] in Urine by Visual Laboratory test result [facility] ([facility]) Ketones [Presence] in Urine by Test strip 15 mg/dL [facility] ([facility]) Color of Urine Laboratory test result [facility] ([facility]) pH of Urine by Test strip 6.5 5.0-7.5 [facility] ([facility]) Ua Specific Hamlin 1.020 1.003-1.030 MEDE NT ([facility]) Clarity of Urine Laboratory test result [facility] ([facility]) Urobilinogen [Mass/volume] in Urine by Test strip 0.2 E.U./dL 0.0-1.0 [facility] ([facility]) Bilirubin.total [Presence] in Urine by Test strip Laboratory test res ult [facility] ([facility]) ID Date Data Source [id number] 01/10/2020 01:44:00 PM EST [facility] ([facility]) Name Value Range Interpretation Code Description Data Tashia rce(s) Supporting Document(s) Glucose [Presence] in Urine Laboratory test result [facility] ([facility]) Ua Nitrite Laboratory test result [facility] ([facility]) Protein [Presence] in Urine by Test strip Laboratory test result [facility] ([facility]) Ua Leuko Laboratory test result [facility] ([facility]) Blood [Presence] in Urine by Visual Laboratory test result [facility] ([facility]) Ketones [Presence] in Urine by Test strip 15 mg/dL [facility] ([facility]) Clarity of Urine Laboratory test result [facility] ([facility]) Color of Urine Laboratory test result [facility] ([facility]) Ua Specific Hamlin 1.025 1.003-1.030 MEDE NT ([facility]) pH of Urine by Test strip 6.0 5.0-7.5 [facility] ([facility]) Urobilinogen [Mass/volume] in Urine by Test strip 0.2 E.U./dL 0.0-1.0 [facility] ([facility]) Bilirubin.total [Presence] in Urine by Test strip Laboratory test res ult [facility] ([facility]) ID Date Data Source [id number] 12/13/2019 12:42:00 PM [facility] Run: 12/13/19 1243 INTERFACED REPORT Name: Trini Jiang Bridger Age/Sex: 64/F Location: [facility] Acct: [id number] Unit: [id number] Status: REG REF Room/Bed: Re12/11/19 Disch: Att Dr: Monica Bal MD Specimen #: [id number] Ordered : 12/11/1908/24/2102 Collected : 12/11/1908/25/1547 By: [...] Name Value Range Interpretation Code Description Data [facility](s) Supporting Document(s) ID Date Data Source [id number] 12/11/2019 03:48:00 PM EDT [facility] ([facility] Name Value Range Interpretation Code Description Data [facility](s) Supporting Document(s) Bacteria identified in Urine by Culture Laboratory test result [facility] ([facility]) <content> --------</content>
<content>Run: 12/13/19 1243 INTERFACED REPORT</content>
<content> </content>
<content>Name: Trini Jiang Age/Sex: 64/F Location: [facility]</content>
<content>Acct: [id number] Unit: [id number] Status: REG REF Room/Bed:</content>
<content>Re12/11/19 Disch: Att Dr: Monica Bal MD</content>
<content> </content>
<content></content>
<content>Specimen #: [id number] Ordered : 12/11/1908/24/2102</content>
<content>Collected : 12/11/1908/25/1547 By: [...] REPORT </content>
<content></content> ID Date Data Source [id number] 11/28/2019 12:00:00 AM EDT [facility] Name Value Range Interpretation Code Description Data Tashia rce(s) Supporting Document(s) SARS-CoV-2 [facility] This lab was ordered by [facility] and reported by [facility]. ID Date Data Source [id number] 11/28/2019 12:00:00 AM EDT [place] ([facility]) Name Value Range Interpretation Code Description Data Tashia rce(s) Supporting Document(s) ID Date Data Source [id number] 11/28/2019 12:00:00 AM EDT [place] ([facility]) Name Value Range Interpretation Code Description Data Tashia rce(s) Supporting Document(s) ID Date Data Source [id number] 11/28/2019 12:00:00 AM EDT [facility] ([facility]) Name Value Range Interpretation Code Description Data Tashia rce(s) Supporting Document(s) ID Date Data Source [id number] 11/28/2019 12:00:00 AM EDT [place] ([facility]) Name Value Range Interpretation Code Description Data Tashia rce(s) Supporting Document(s) ID Date Data Source [id number] 11/28/2019 12:00:00 AM EDT [facility] ([facility]) Name Value Range Interpretation Code Description Data Tashia rce(s) Supporting Document(s) ID Date Data Source [id number] 11/28/2019 12:00:00 AM EDT [facility] ([facility]) Name Value Range Interpretation Code Description Data Tashia rce(s) Supporting Document(s) ID Date Data Source [id number] 11/28/2019 12:00:00 AM EDT [facility] ([facility]) Name Value Range Interpretation Code Description Data Tashia rce(s) Supporting Document(s) ID Date Data Source [id number] 11/28/2019 12:00:00 AM EDT [facility] ([facility]) Name Value Range Interpretation Code Description Data Tashia rce(s) Supporting Document(s) ID Date Data Source [id number] 11/28/2019 12:00:00 AM EDT [facility] ([facility]) Name Value Range Interpretation Code Description Data Tashia rce(s) Supporting Document(s) ID Date Data Source [id number] 11/28/2019 12:00:00 AM EDT [facility] ([facility]) Name Value Range Interpretation Code Description Data Tashia rce(s) Supporting Document(s) ID Date Data Source [id number] 11/28/2019 12:00:00 AM EDT [facility] ([facility]) Name Value Range Interpretation Code Description Data At[facility] rce(s) Supporting Document(s) ID Date Data Source [id number] 11/27/2019 11:57:00 AM EDT [facility] ([facility] Name Value Range Interpretation Code Description Data Tashia rce(s) Supporting Document(s) Protein [Presence] in Urine by Test strip Laboratory test result [facility] ([facility]) Glucose [Presence] in Urine Laboratory test result [facility] ([facility]) Ua Nitrite Laboratory test result [facility] ([facility]) Color of Urine Laboratory test result [facility] ([facility]) Ua Leuko Laboratory test result [facility] ([facility]) Blood [Presence] in Urine by Visual Laboratory test result [facility] ([facility]) Clarity of Urine Laboratory test result [facility] ([facility]) Ketones [Presence] in Urine by Test strip Laboratory test result [facility] ([facility]) Ua Specific Hamlin Laboratory test result 1.003-1.030 [facility] ([facility]) Urobilinogen [Mass/volume] in Urine by Test strip 0.2 E.U./dL 0.0-1.0 [facility] ([facility]) Bilirubin.total [Presence] in Urine by Test strip Laboratory test res ult [facility] ([facility]) pH of Urine by Test strip 5.5 5.0-7.5 MEDREMY ([facility]) Procedure Social History Code Duration Value Status Description Data Source(s ) Smoking 01/22/2021 12:00:00 AM EST Never Smoker completed Never S moker eCW1 ([facility]) Smoking 12/20/2020 12:00:00 AM EDT Never Smoker completed Never S moker eCW1 ([facility]) Smoking 12/20/2020 12:00:00 AM EDT Never Smoker completed Never S moker eCW1 ([facility]) Smoking 12/20/2020 12:00:00 AM EDT Never Smoker completed Never S moker eCW1 ([facility]) Smoking 12/20/2020 12:00:00 AM EDT Never Smoker completed Never S moker eCW1 ([facility]) Smoking 12/20/2020 12:00:00 AM EDT Never Smoker completed Never S moker eCW1 ([facility]) Smoking 12/20/2020 12:00:00 AM EDT Never Smoker completed Never S moker eCW1 ([facility]) Smoking 12/20/2020 12:00:00 AM EDT Never Smoker completed Never S moker eCW1 ([facility]) Smoking 11/14/2020 12:00:00 AM EDT Never Smoker completed Never S moker eCW1 ([facility]) Smoking 11/14/2020 12:00:00 AM EDT Never Smoker completed Never S moker eCW1 ([facility]) Smoking 11/14/2020 12:00:00 AM EDT Never Smoker completed Never S moker eCW1 ([facility]) Smoking 11/14/2020 12:00:00 AM EDT Never Smoker completed Never S moker eCW1 ([facility]) Smoking 11/14/2020 12:00:00 AM EDT Never Smoker completed Never S moker eCW1 ([facility]) Smoking 11/14/2020 12:00:00 AM EDT Never Smoker completed Never S moker eCW1 ([facility]) Smoking 11/14/2020 12:00:00 AM EDT Never Smoker completed Never S moker eCW1 ([facility]) Smoking 11/14/2020 12:00:00 AM EDT Never Smoker completed Never S moker eCW1 ([facility]) Smoking 11/14/2020 12:00:00 AM EDT Never Smoker completed Never S moker eCW1 ([facility]) Smoking 11/14/2020 12:00:00 AM EDT Never Smoker completed Never S moker eCW1 ([facility]) Smoking 11/14/2020 12:00:00 AM EDT Never Smoker completed Never S moker eCW1 ([facility]) Smoking 11/14/2020 12:00:00 AM EDT Never Smoker completed Never S moker eCW1 ([facility]) Smoking 10/21/2020 12:00:00 AM EDT Never Smoker completed Never S moker eCW1 ([facility]) Smoking 10/21/2020 12:00:00 AM EDT Never Smoker completed Never S moker eCW1 ([facility]) Smoking 10/21/2020 12:00:00 AM EDT Never Smoker completed Never S moker eCW1 ([facility]) Smoking 10/21/2020 12:00:00 AM EDT Never Smoker completed Never S moker eCW1 ([facility]) Smoking 10/21/2020 12:00:00 AM EDT Never Smoker completed Never S moker eCW1 ([facility]) Smoking 10/08/2020 12:00:00 AM EDT Patient has never smoked co mpleted Patient has never smoked MEDENT ([facility], ) Smoking 09/22/2020 12:00:00 AM EDT Never Smoker completed Never S moker eCW1 ([facility]) Smoking 09/22/2020 12:00:00 AM EDT Never Smoker completed Never S moker eCW1 ([facility]) Smoking 08/11/2020 12:00:00 AM EDT Never Smoked Cigarettes com pleted Never Smoked Cigarettes [facility]ENT ([facility] [employer]) Smoking 07/04/2020 12:00:00 AM EDT Never Smoker completed Never S moker eCW1 ([facility]) Smoking 07/04/2020 12:00:00 AM EDT Never Smoker completed Never S moker eCW1 ([facility]) Smoking 07/04/2020 12:00:00 AM EDT Never Smoker completed Never S moker eCW1 ([facility]) Smoking 07/04/2020 12:00:00 AM EDT Never Smoker completed Never S moker eCW1 ([facility]) Smoking 07/04/2020 12:00:00 AM EDT Never Smoker completed Never S moker eCW1 ([facility]) Smoking 07/04/2020 12:00:00 AM EDT Never Smoker completed Never S moker eCW1 ([facility]) Smoking 07/04/2020 12:00:00 AM EDT Never Smoker completed Never S moker eCW1 ([facility]) Smoking 07/04/2020 12:00:00 AM EDT Never Smoker completed Never S moker eCW1 ([facility]) Smoking 07/04/2020 12:00:00 AM EDT Never Smoker completed Never S moker eCW1 ([facility]) Smoking 07/04/2020 12:00:00 AM EDT Never Smoker completed Never S moker eCW1 ([facility]) Smoking 07/04/2020 12:00:00 AM EDT Never Smoker completed Never S moker eCW1 ([facility]) Smoking 05/26/2020 12:00:00 AM EDT Never Smoker completed Never S moker eCW1 ([facility]) Smoking 05/26/2020 12:00:00 AM EDT Never Smoker completed Never S moker eCW1 ([facility]) Smoking 05/26/2020 12:00:00 AM EDT Never Smoker completed Never S moker eCW1 ([facility]) Smoking 05/26/2020 12:00:00 AM EDT Never Smoker completed Never S moker eCW1 ([facility]) Smoking 05/26/2020 12:00:00 AM EDT Never Smoker completed Never S moker eCW1 ([facility]) Smoking 05/26/2020 12:00:00 AM EDT Never Smoker completed Never S moker eCW1 ([facility]) Smoking 05/26/2020 12:00:00 AM EDT Never Smoker completed Never S moker eCW1 ([facility]) Smoking 05/26/2020 12:00:00 AM EDT Never Smoker completed Never S moker eCW1 ([facility]) Smoking 05/26/2020 12:00:00 AM EDT Never Smoker completed Never S moker eCW1 ([facility]) Smoking 05/26/2020 12:00:00 AM EDT Never Smoker completed Never S moker eCW1 ([facility]) Smoking 05/26/2020 12:00:00 AM EDT Never Smoker completed Never S moker eCW1 ([facility]) Smoking 05/12/2020 12:00:00 AM EST Never Smoker completed Never S moker eCW1 ([facility]) Smoking 05/12/2020 12:00:00 AM EST Never Smoker completed Never S moker eCW1 ([facility]) Smoking 05/12/2020 12:00:00 AM EST Never Smoker completed Never S moker eCW1 ([facility]) Vital Signs ID Date Data Source UNK Name Value Range Interpretation Code Description Data Source(s) Body temperature 96.9 [degF] 96.9 [degF] eCW1 ( [facility]) Respiratory rate 18 /min 18 /min eCW1 ([facility]) Heart rate 88 /min 88 /min eCW1 ([facility]) Body mass index (BMI) [Ratio] 35.80 kg/m2 35.80 kg/m2 W1 ([facility]) Body height 66 [in_i] 66 [in_i] eCW1 ([facility]) Body weight 100.61 kg 100.61 kg eCW1 ([facility]) Body weight 221.8 [lb_av] 221.8 [lb_av] eCW1 ([facility] Diastolic blood pressure 78 mm[Hg] 78 mm[Hg] eCW1 ([facility]) Systolic blood pressure 122 mm[Hg] 122 mm[Hg] e CW1 ([facility]) Body temperature 96.9 [degF] 96.9 [degF] eCW1 ( [facility]) Respiratory rate 18 /min 18 /min eCW1 ([facility]) Heart rate 88 /min 88 /min eCW1 ([facility]) Body mass index (BMI) [Ratio] 35.80 kg/m2 35.80 kg/m2 eCW1 ([facility]) Body height 66 [in_i] 66 [in_i] eCW1 ([facility]) Body weight 100.61 kg 100.61 kg eCW1 ([facility]) Body weight 221.8 [lb_av] 221.8 [lb_av] eCW1 ([facility]) Diastolic blood pressure 78 mm[Hg] 78 mm[Hg] eCW1 ([facility]) Systolic blood pressure 122 mm[Hg] 122 mm[Hg] e CW1 ([facility]) Body temperature 97.4 [degF] 97.4 [degF] eCW1 ( [facility]) Respiratory rate 18 /min 18 /min eCW1 ([facility]) Heart rate 105 /min 105 /min eCW1 ([facility]) Body mass index (BMI) [Ratio] 36.44 kg/m2 36.44 kg/m2 eCW1 ([facility]) Body height 66 [in_i] 66 [in_i] eCW1 ([facility]) Body weight 102.42 kg 102.42 kg eCW1 ([facility]) Body weight 225.8 [lb_av] 225.8 [lb_av] eCW1 ([facility]) Diastolic blood pressure 62 mm[Hg] 62 mm[Hg] eCW1 ([facility]) Systolic blood pressure 128 mm[Hg] 128 mm[Hg] e CW1 ([facility]) Body surface area Derived from formula 2.11 m2 2.11 m2 MEDENT ([facility]) Body weight 103.421 kg 103.421 kg [facility] ([facility]) [place] body weight 130 [lb_av] 130 [lb_av] MEDEN T ([facility]) Body mass index (BMI) [Ratio] 36.8 kg/m2 36.8 k g/m2 MEDENT ([facility]) Body weight 228.00 [lb_av] 228.00 [lb_av] MEDEN T ([facility]) Body height 66 [in_i] 66 [in_i] [facility] ([facility]) 5'6" Diastolic blood pressure 64 mm[Hg] 64 mm[Hg] MEDENT ([facility]) Systolic blood pressure 112 mm[Hg] 112 mm[Hg] M EDENT ([facility], ) Body height 66 [in_i] 66 [in_i] MARILIA ([facility]) Diastolic blood pressure 74 mm[Hg] 74 mm[Hg] MARILIA ([facility]) Body weight 224 [lb_av] 224 [lb_av] MARILIA ([facility]) Systolic blood pressure 128 mm[Hg] 128 mm[Hg] A THENA ([facility]) Body mass index (BMI) [Ratio] 36.2 kg/m2 36.2 k g/m2 MARILIA ([facility]) Body weight 224 [lb_av] 224 [lb_av] MARILIA ([facility]) Systolic blood pressure 128 mm[Hg] 128 mm[Hg] A THENA ([facility]) Body mass index (BMI) [Ratio] 36.2 kg/m2 36.2 k g/m2 MARILIA ([facility]) Body height 66 [in_i] 66 [in_i] MARILIA ([facility]) Diastolic blood pressure 74 mm[Hg] 74 mm[Hg] MARILIA ([facility]) Body weight 224 [lb_av] 224 [lb_av] MARILIA ([facility]) Systolic blood pressure 128 mm[Hg] 128 mm[Hg] A THENA ([facility]) Body mass index (BMI) [Ratio] 36.2 kg/m2 36.2 k g/m2 MARILIA ([facility]) Body height 66 [in_i] 66 [in_i] MARILIA ([facility]) Diastolic blood pressure 74 mm[Hg] 74 mm[Hg] MARILIA ([facility]) Body surface area Derived from formula 2.10 m2 2.10 m2 [facility]) Body weight 101.606 kg 101.606 kg [facility] ([facility]) [place] body weight 130 [lb_av] 130 [lb_av] MEDEN T ([facility]) Body mass index (BMI) [Ratio] 36.2 kg/m2 36.2 k g/m2 [facility] ([facility]) Body weight 224.00 [lb_av] 224.00 [lb_av] [facility] ([facility]) Body height 66 [in_i] 66 [in_i] [facility] ([facility]) 5'6" Oxygen saturation in Arterial blood by Pulse oximetry 96 % 96 % [facility] ([facility]) Heart rate 95 /min 95 /min [facility] ([facility]) Diastolic blood pressure 84 mm[Hg] 84 mm[Hg] [facility] ([facility]) Systolic blood pressure 132 mm[Hg] 132 mm[Hg] M EDENT ([facility]) Diastolic blood pressure 72 mm[Hg] 72 mm[Hg] eCW1 ([facility]) Systolic blood pressure 116 mm[Hg] 116 mm[Hg] e CW1 ([facility]) Body temperature 97.7 [degF] 97.7 [degF] eCW1 ( [facility]) Respiratory rate 18 /min 18 /min eCW1 ([facility]) Heart rate 91 /min 91 /min eCW1 ([facility]) Body mass index (BMI) [Ratio] 36.96 kg/m2 36.96 kg/m2 [facility]) Body height 66 [in_i] 66 [in_i] eCW1 ([facility]) Body weight 229 [lb_av] 229 [lb_av] eCW1 ([facility]) Systolic blood pressure 115 mm[Hg] 115 mm[Hg] A THENA ([facility]) Diastolic blood pressure 77 mm[Hg] 77 mm[Hg] MARILIA ([facility]) Systolic blood pressure 115 mm[Hg] 115 mm[Hg] A THENA ([facility]) Diastolic blood pressure 77 mm[Hg] 77 mm[Hg] MARILIA ([facility]) Systolic blood pressure 115 mm[Hg] 115 mm[Hg] A THENA ([facility]) Diastolic blood pressure 77 mm[Hg] 77 mm[Hg] MARILIA ([facility]) Systolic blood pressure 115 mm[Hg] 115 mm[Hg] A THENA ([facility]) Diastolic blood pressure 77 mm[Hg] 77 mm[Hg] MARILIA ([facility]) Systolic blood pressure 115 mm[Hg] 115 mm[Hg] A THENA ([facility]) Diastolic blood pressure 77 mm[Hg] 77 mm[Hg] MARILIA ([facility]) Body mass index (BMI) [Ratio] 35.2 kg/m2 35.2 k g/m2 MEDENT ([facility]) Body weight 218.00 [lb_av] 218.00 [lb_av] MEDEN T ([facility]) Body height 66 [in_i] 66 [in_i] MEDENT ([facility]) 5'6" Diastolic blood pressure 70 mm[Hg] 70 mm[Hg] eCW1 ([facility]) Systolic blood pressure 122 mm[Hg] 122 mm[Hg] e CW1 ([facility]) Body temperature 97.1 [degF] 97.1 [degF] eCW1 ( [facility]) Respiratory rate 20 /min 20 /min eCW1 ([facility]) Heart rate 94 /min 94 /min eCW1 ([facility]) Body mass index (BMI) [Ratio] 39.02 kg/m2 39.02 kg/m2 eCW1 ([facility]) Body height 66 [in_i] 66 [in_i] eCW1 ([facility]) Body weight 241.8 [lb_av] 241.8 [lb_av] eCW1 ([facility]) Diastolic blood pressure 68 mm[Hg] 68 mm[Hg] eCW1 ([facility]) Systolic blood pressure 110 mm[Hg] 110 mm[Hg] e CW1 ([facility]) Body temperature 98.3 [degF] 98.3 [degF] eCW1 ( [facility]) Respiratory rate 18 /min 18 /min eCW1 ([facility]) Heart rate 96 /min 96 /min eCW1 ([facility]) Body mass index (BMI) [Ratio] 36.86 kg/m2 36.86 kg/m2 eCW1 ([facility]) Body height 66 [in_i] 66 [in_i] eCW1 ([facility]) Body weight 228.4 [lb_av] 228.4 [lb_av] eCW1 ([facility]) Diastolic blood pressure 78 mm[Hg] 78 mm[Hg] eCW1 ([facility]) Systolic blood pressure 102 mm[Hg] 102 mm[Hg] e CW1 ([facility]) Body temperature 97.8 [degF] 97.8 [degF] eCW1 ( [facility]) Respiratory rate 18 /min 18 /min eCW1 ([facility]) Heart rate 95 /min 95 /min eCW1 ([facility]) Body mass index (BMI) [Ratio] 36.96 kg/m2 36.96 kg/m2 eCW1 ([facility]) Body height 66 [in_i] 66 [in_i] eCW1 ([facility]) Body weight 229 [lb_av] 229 [lb_av] eCW1 ([facility]) Systolic blood pressure 134 mm[Hg] 134 mm[Hg] A THENA ([facility]) Diastolic blood pressure 85 mm[Hg] 85 mm[Hg] MARILIA ([facility]) Systolic blood pressure 134 mm[Hg] 134 mm[Hg] A THENA ([facility]) Diastolic blood pressure 85 mm[Hg] 85 mm[Hg] MARILIA ([facility]) Systolic blood pressure 134 mm[Hg] 134 mm[Hg] A THENA ([facility]) Diastolic blood pressure 85 mm[Hg] 85 mm[Hg] MARILIA ([facility]) Systolic blood pressure 134 mm[Hg] 134 mm[Hg] A THENA ([facility]) Diastolic blood pressure 85 mm[Hg] 85 mm[Hg] MARILIA ([facility]) Systolic blood pressure 134 mm[Hg] 134 mm[Hg] A THENA ([facility]) Diastolic blood pressure 85 mm[Hg] 85 mm[Hg] MARILIA ([facility]) Systolic blood pressure 134 mm[Hg] 134 mm[Hg] A THENA ([facility]) Diastolic blood pressure 85 mm[Hg] 85 mm[Hg] MARILIA ([facility]) Body surface area Derived from formula 2.12 m2 2.12 m2 [facility] ([facility]) Body weight 103.874 kg 103.874 kg [facility] ([facility]) [place] body weight 130 [lb_av] 130 [lb_av] [facility] ([facility]) Body mass index (BMI) [Ratio] 37.0 kg/m2 37.0 k g/m2 [facility] ([facility]) Body weight 229.00 [lb_av] 229.00 [lb_av] [facility] ([facility]) Body height 66 [in_i] 66 [in_i] [facility] ([facility]) 5'6" Oxygen saturation in Arterial blood by Pulse oximetry 98 % 98 % [facility] ([facility]) Room Air Heart rate 88 /min 88 /min [facility] ([facility]) Diastolic blood pressure 76 mm[Hg] 76 mm[Hg] [facility] ([facility]) Systolic blood pressure 126 mm[Hg] 126 mm[Hg] [facility] Body surface area Derived from formula 2.12 m2 2.12 m2 [facility] ([facility]) Body weight 103.874 kg 103.874 kg [facility] ([facility]) [place] body weight 130 [lb_av] 130 [lb_av] [facility] ([facility]) Body mass index (BMI) [Ratio] 37.0 kg/m2 37.0 k g/m2 [facility] ([facility]) Body weight 229.00 [lb_av] 229.00 [lb_av] [facility] ([facility]) Body height 66 [in_i] 66 [in_i] [facility] ([facility]) 5'6" Oxygen saturation in Arterial blood by Pulse oximetry 98 % 98 % [facility] ([facility]) Room Air [place] body weight 130 [lb_av] 130 [lb_av] [facility] ([facility]) Body height 66 [in_i] 66 [in_i] [facility] ([facility]) 5'6" Patient Treatment Plan of Care Planned Activity Planned Date Details Description Data Source (s) celecoxib 200 MG Oral Capsule [Celebrex] 01/16/2021 12:00:00 AM EST eCW1 ([facility]) celecoxib 200 MG Oral Capsule [Celebrex] 01/16/2021 12:00:00 AM EST eCW1 ([facility]) celecoxib 200 MG Oral Capsule [Celebrex] 01/16/2021 12:00:00 AM EST eCW1 ([facility]) NITROFURANTOIN, MACROCRYSTALS 25 MG / Ni trofurantoin, Monohydrate 75 MG Oral Capsule [Macrobid] 11/17/2020 12:00:00 AM EDT eC W1 ([facility]) NITROFURANTOIN, MACROCRYSTALS 25 MG / Ni trofurantoin, Monohydrate 75 MG Oral Capsule [Macrobid] 11/17/2020 12:00:00 AM EDT eC W1 ([facility]) NITROFURANTOIN, MACROCRYSTALS 25 MG / Ni trofurantoin, Monohydrate 75 MG Oral Capsule [Macrobid] 11/17/2020 12:00:00 AM EDT eC W1 ([facility]) NITROFURANTOIN, MACROCRYSTALS 25 MG / Ni trofurantoin, Monohydrate 75 MG Oral Capsule [Macrobid] 11/17/2020 12:00:00 AM EDT eC W1 ([facility]) NITROFURANTOIN, MACROCRYSTALS 25 MG / Ni trofurantoin, Monohydrate 75 MG Oral Capsule [Macrobid] 11/17/2020 12:00:00 AM EDT eC W1 ([facility]) NITROFURANTOIN, MACROCRYSTALS 25 MG / Ni trofurantoin, Monohydrate 75 MG Oral Capsule [Macrobid] 11/17/2020 12:00:00 AM EDT eC W1 ([facility]) NITROFURANTOIN, MACROCRYSTALS 25 MG / Ni trofurantoin, Monohydrate 75 MG Oral Capsule [Macrobid] 11/17/2020 12:00:00 AM EDT eC W1 ([facility]) NITROFURANTOIN, MACROCRYSTALS 25 MG / Ni trofurantoin, Monohydrate 75 MG Oral Capsule [Macrobid] 11/17/2020 12:00:00 AM EDT eC W1 ([facility]) NITROFURANTOIN, MACROCRYSTALS 25 MG / Ni trofurantoin, Monohydrate 75 MG Oral Capsule [Macrobid] 11/17/2020 12:00:00 AM EDT eC W1 ([facility]) NITROFURANTOIN, MACROCRYSTALS 25 MG / Ni trofurantoin, Monohydrate 75 MG Oral Capsule [Macrobid] 11/17/2020 12:00:00 AM EDT eC W1 ([facility]) NITROFURANTOIN, MACROCRYSTALS 25 MG / Ni trofurantoin, Monohydrate 75 MG Oral Capsule [Macrobid] 11/17/2020 12:00:00 AM EDT eC W1 ([facility]) NITROFURANTOIN, MACROCRYSTALS 25 MG / Ni trofurantoin, Monohydrate 75 MG Oral Capsule [Macrobid] 11/17/2020 12:00:00 AM EDT eC W1 ([facility]) NITROFURANTOIN, MACROCRYSTALS 25 MG / Ni trofurantoin, Monohydrate 75 MG Oral Capsule [Macrobid] 11/17/2020 12:00:00 AM EDT eC W1 ([facility]) NITROFURANTOIN, MACROCRYSTALS 25 MG / Ni trofurantoin, Monohydrate 75 MG Oral Capsule [Macrobid] 11/17/2020 12:00:00 AM EDT eC W1 ([facility]) NITROFURANTOIN, MACROCRYSTALS 25 MG / Ni trofurantoin, Monohydrate 75 MG Oral Capsule [Macrobid] 11/17/2020 12:00:00 AM EDT eC W1 ([facility]) NITROFURANTOIN, MACROCRYSTALS 25 MG / Ni trofurantoin, Monohydrate 75 MG Oral Capsule [Macrobid] 11/17/2020 12:00:00 AM EDT eC W1 ([facility]) NITROFURANTOIN, MACROCRYSTALS 25 MG / Ni trofurantoin, Monohydrate 75 MG Oral Capsule [Macrobid] 11/17/2020 12:00:00 AM EDT eC W1 ([facility]) NITROFURANTOIN, MACROCRYSTALS 25 MG / Ni trofurantoin, Monohydrate 75 MG Oral Capsule [Macrobid] 11/17/2020 12:00:00 AM EDT eC W1 ([facility]) Mupirocin 0.02 MG/MG Topical Ointment 11/14/2020 12:00:00 AM EDT eCW1 ([facility]) ferric carboxymaltose 50 MG/ML Injectable Solution [In jectafer] 11/14/2020 12:00:00 AM EDT eCW1 ([facility]) ferric carboxymaltose 50 MG/ML Injectable Solution [In jectafer] 11/14/2020 12:00:00 AM EDT eCW1 ([facility]) Mupirocin 0.02 MG/MG Topical Ointment 11/14/2020 12:00:00 AM EDT eCW1 ([facility]) Mupirocin 0.02 MG/MG Topical Ointment 11/14/2020 12:00:00 AM EDT eCW1 ([facility]) ferric carboxymaltose 50 MG/ML Injectable Solution [In jectafer] 11/14/2020 12:00:00 AM EDT eCW1 ([facility]) Mupirocin 0.02 MG/MG Topical Ointment 11/14/2020 12:00:00 AM EDT eCW1 ([facility]) ferric carboxymaltose 50 MG/ML Injectable Solution [In jectafer] 11/14/2020 12:00:00 AM EDT eCW1 ([facility]) Mupirocin 0.02 MG/MG Topical Ointment 11/14/2020 12:00:00 AM EDT eCW1 ([facility]) ferric carboxymaltose 50 MG/ML Injectable Solution [In jectafer] 11/14/2020 12:00:00 AM EDT eCW1 ([facility]) Mupirocin 0.02 MG/MG Topical Ointment 11/14/2020 12:00:00 AM EDT eCW1 ([facility]) ferric carboxymaltose 50 MG/ML Injectable Solution [In jectafer] 11/14/2020 12:00:00 AM EDT eCW1 ([facility]) Mupirocin 0.02 MG/MG Topical Ointment 11/14/2020 12:00:00 AM EDT eCW1 ([facility]) ferric carboxymaltose 50 MG/ML Injectable Solution [In jectafer] 11/14/2020 12:00:00 AM EDT eCW1 ([facility]) Mupirocin 0.02 MG/MG Topical Ointment 11/14/2020 12:00:00 AM EDT eCW1 ([facility]) ferric carboxymaltose 50 MG/ML Injectable Solution [In jectafer] 11/14/2020 12:00:00 AM EDT eCW1 ([facility]) Mupirocin 0.02 MG/MG Topical Ointment 11/14/2020 12:00:00 AM EDT eCW1 ([facility]) ferric carboxymaltose 50 MG/ML Injectable Solution [In jectafer] 11/14/2020 12:00:00 AM EDT eCW1 ([facility]) Mupirocin 0.02 MG/MG Topical Ointment 11/14/2020 12:00:00 AM EDT eCW1 ([facility]) ferric carboxymaltose 50 MG/ML Injectable Solution [In jectafer] 11/14/2020 12:00:00 AM EDT eCW1 ([facility]) Mupirocin 0.02 MG/MG Topical Ointment 11/14/2020 12:00:00 AM EDT eCW1 ([facility]) ferric carboxymaltose 50 MG/ML Injectable Solution [In jectafer] 11/14/2020 12:00:00 AM EDT eCW1 ([facility]) Mupirocin 0.02 MG/MG Topical Ointment 11/14/2020 12:00:00 AM EDT eCW1 ([facility]) ferric carboxymaltose 50 MG/ML Injectable Solution [In jectafer] 11/14/2020 12:00:00 AM EDT eCW1 ([facility]) Mupirocin 0.02 MG/MG Topical Ointment 11/14/2020 12:00:00 AM EDT eCW1 ([facility]) ferric carboxymaltose 50 MG/ML Injectable Solution [In jectafer] 11/14/2020 12:00:00 AM EDT eCW1 ([facility]) ferric carboxymaltose 50 MG/ML Injectable Solution [In jectafer] 11/14/2020 12:00:00 AM EDT eCW1 ([facility]) Mupirocin 0.02 MG/MG Topical Ointment 11/14/2020 12:00:00 AM EDT eCW1 ([facility]) ferric carboxymaltose 50 MG/ML Injectable Solution [In jectafer] 11/14/2020 12:00:00 AM EDT eCW1 ([facility]) Mupirocin 0.02 MG/MG Topical Ointment 11/14/2020 12:00:00 AM EDT eCW1 ([facility]) Mupirocin 0.02 MG/MG Topical Ointment 11/14/2020 12:00:00 AM EDT eCW1 ([facility]) ferric carboxymaltose 50 MG/ML Injectable Solution [In jectafer] 11/14/2020 12:00:00 AM EDT eCW1 ([facility]) Mupirocin 0.02 MG/MG Topical Ointment 11/14/2020 12:00:00 AM EDT eCW1 ([facility]) ferric carboxymaltose 50 MG/ML Injectable Solution [In jectafer] 11/14/2020 12:00:00 AM EDT eCW1 ([facility]) Mupirocin 0.02 MG/MG Topical Ointment 11/14/2020 12:00:00 AM EDT eCW1 ([facility]) ferric carboxymaltose 50 MG/ML Injectable Solution [In jectafer] 11/14/2020 12:00:00 AM EDT eCW1 ([facility]) ferric carboxymaltose 50 MG/ML Injectable Solution [In jectafer] 11/14/2020 12:00:00 AM EDT eCW1 ([facility]) Mupirocin 0.02 MG/MG Topical Ointment 11/14/2020 12:00:00 AM EDT eCW1 ([facility]) Lancets - 11/03/2020 12:00:00 AM EDT e CW1 ([facility]) Blood Glucose Test - 11/03/2020 12:00:00 AM EDT eCW1 ([facility]) Glucometer 11/03/2020 12:00:00 AM EDT e CW1 ([facility]) Glucometer 11/03/2020 12:00:00 AM EDT e CW1 ([facility]) Lancets - 11/03/2020 12:00:00 AM EDT e CW1 ([facility]) Blood Glucose Test - 11/03/2020 12:00:00 AM EDT eCW1 ([facility]) Blood Glucose Test - 11/03/2020 12:00:00 AM EDT eCW1 ([facility]) Lancets - 11/03/2020 12:00:00 AM EDT e CW1 ([facility]) Glucometer 11/03/2020 12:00:00 AM EDT e CW1 ([facility]) 60 ACTUAT Fluticasone propionate 0.25 MG /ACTUAT / salmeterol 0.05 MG/ACTUAT Dry Powder Inhaler [Advair] 07/07/2020 12:00:00 AM EDT eCW1 ([facility]) 60 ACTUAT Fluticasone propionate 0.25 MG /ACTUAT / salmeterol 0.05 MG/ACTUAT Dry Powder Inhaler [Advair] 07/07/2020 12:00:00 AM EDT eCW1 ([facility]) 60 ACTUAT Fluticasone propionate 0.25 MG /ACTUAT / salmeterol 0.05 MG/ACTUAT Dry Powder Inhaler [Advair] 07/07/2020 12:00:00 AM EDT eCW1 ([facility]) 60 ACTUAT Fluticasone propionate 0.25 MG /ACTUAT / salmeterol 0.05 MG/ACTUAT Dry Powder Inhaler [Advair] 07/07/2020 12:00:00 AM EDT eCW1 ([facility]) 60 ACTUAT Fluticasone propionate 0.25 MG /ACTUAT / salmeterol 0.05 MG/ACTUAT Dry Powder Inhaler [Advair] 07/07/2020 12:00:00 AM EDT eCW1 ([facility]) 60 ACTUAT Fluticasone propionate 0.25 MG /ACTUAT / salmeterol 0.05 MG/ACTUAT Dry Powder Inhaler [Advair] 07/07/2020 12:00:00 AM EDT eCW1 ([facility]) 60 ACTUAT Fluticasone propionate 0.25 MG /ACTUAT / salmeterol 0.05 MG/ACTUAT Dry Powder Inhaler [Advair] 07/07/2020 12:00:00 AM EDT eCW1 ([facility]) 60 ACTUAT Fluticasone propionate 0.25 MG /ACTUAT / salmeterol 0.05 MG/ACTUAT Dry Powder Inhaler [Advair] 07/07/2020 12:00:00 AM EDT eCW1 ([facility]) 60 ACTUAT Fluticasone propionate 0.25 MG /ACTUAT / salmeterol 0.05 MG/ACTUAT Dry Powder Inhaler [Advair] 07/07/2020 12:00:00 AM EDT eCW1 ([facility]) 60 ACTUAT Fluticasone propionate 0.25 MG /ACTUAT / salmeterol 0.05 MG/ACTUAT Dry Powder Inhaler [Advair] 07/07/2020 12:00:00 AM EDT eCW1 ([facility]) 60 ACTUAT Fluticasone propionate 0.25 MG /ACTUAT / salmeterol 0.05 MG/ACTUAT Dry Powder Inhaler [Advair] 07/07/2020 12:00:00 AM EDT eCW1 ([facility]) 60 ACTUAT Fluticasone propionate 0.25 MG /ACTUAT / salmeterol 0.05 MG/ACTUAT Dry Powder Inhaler [Advair] 07/07/2020 12:00:00 AM EDT eCW1 ([facility]) POLYETHYLENE GLYCOL 3350 142 MG/ML Oral Solution [Dawn lax] 05/26/2020 12:00:00 AM EDT eCW1 ([facility]) POLYETHYLENE GLYCOL 3350 142 MG/ML Oral Solution [Dawn lax] 05/26/2020 12:00:00 AM EDT eCW1 ([facility]) POLYETHYLENE GLYCOL 3350 142 MG/ML Oral Solution [Dawn lax] 05/26/2020 12:00:00 AM EDT eCW1 ([facility]) POLYETHYLENE GLYCOL 3350 142 MG/ML Oral Solution [Dawn lax] 05/26/2020 12:00:00 AM EDT eCW1 ([facility]) POLYETHYLENE GLYCOL 3350 142 MG/ML Oral Solution [Dawn lax] 05/26/2020 12:00:00 AM EDT eCW1 ([facility]) POLYETHYLENE GLYCOL 3350 142 MG/ML Oral Solution [Dawn lax] 05/26/2020 12:00:00 AM EDT eCW1 ([facility]) POLYETHYLENE GLYCOL 3350 142 MG/ML Oral Solution [Dawn lax] 05/26/2020 12:00:00 AM EDT eCW1 ([facility]) POLYETHYLENE GLYCOL 3350 142 MG/ML Oral Solution [Dawn lax] 05/26/2020 12:00:00 AM EDT eCW1 ([facility]) POLYETHYLENE GLYCOL 3350 142 MG/ML Oral Solution [Dawn lax] 05/26/2020 12:00:00 AM EDT eCW1 ([facility]) POLYETHYLENE GLYCOL 3350 142 MG/ML Oral Solution [Dawn lax] 05/26/2020 12:00:00 AM EDT eCW1 ([facility]) Cyclobenzaprine hydrochloride 10 MG Oral Tablet 02/07/2020 12:00:00 AM EST eCW1 ([facility]) Cyclobenzaprine hydrochloride 10 MG Oral Tablet 02/07/2020 12:00:00 AM EST eCW1 ([facility]) Cyclobenzaprine hydrochloride 10 MG Oral Tablet 02/07/2020 12:00:00 AM EST eCW1 ([facility]) Cyclobenzaprine hydrochloride 5 MG Oral Tablet 02/07/2020 12:00:00 AM EST eCW1 ([facility]) Amitriptyline Hydrochloride 25 MG Oral Tablet 12/06/2019 12:00:00 A M EDT eCW1 ([facility]) Amitriptyline Hydrochloride 25 MG Oral Tablet 12/06/2019 12:00:00 A M EDT eCW1 ([facility]) Amitriptyline Hydrochloride 25 MG Oral Tablet 12/06/2019 12:00:00 A M EDT eCW1 ([facility]) Amitriptyline Hydrochloride 25 MG Oral Tablet 12/06/2019 12:00:00 A M EDT eCW1 ([facility]) Amitriptyline Hydrochloride 25 MG Oral Tablet 12/06/2019 12:00:00 A M EDT eCW1 ([facility]) Amitriptyline Hydrochloride 25 MG Oral Tablet 12/06/2019 12:00:00 A M EDT eCW1 ([facility]) cefdinir 300 MG Oral Capsule MARILIA ([facility]) Ciprofloxacin 250 MG Oral Tablet MARILIA ([facility]) Doxycycline Monohydrate 100 MG Oral Capsule MARILIA ([facility]) 0.3 ML Enoxaparin sodium 100 MG/ML Prefilled Syringe MARILIA ([facility]) Oxycodone Hydrochloride 5 MG Oral Tablet MARILIA ([facility]) Acetaminophen 325 MG / Oxycodone Hydrochloride 5 MG Oral Tablet MARILIA ([facility]) Prednisone 20 MG Oral Tablet [facility] ([facility]) tramadol hydrochloride 50 MG Oral Tablet [facility] ([facility]) Alprazolam 1 MG Oral Tablet [facility]ILIA ([facility]) Amoxicillin 500 MG / Clavulanate 125 MG Oral Tablet [facility] ([facility]) Estradiol 0.1 MG/ML Vaginal Cream MARILIA ([facility]) glimepiride 1 MG Oral Tablet [facility] ([facility]) glimepiride 2 MG Oral Tablet [facility] ([facility]) Methylprednisolone 2 MG Oral Tablet [Medrol] MARILIA ([facility]) Methylprednisolone 4 MG Oral Tablet [facility] ([facility]) glimepiride 2 MG Oral Tablet MAR[facility]IA ([facility]) glimepiride 1 MG Oral Tablet [facility]ILIA ([facility]) 0.3 ML Enoxaparin sodium 100 MG/ML Prefilled Syringe MARILIA ([facility]) Ciprofloxacin 250 MG Oral Tablet MARILIA ([facility]) Estradiol 0.1 MG/ML Vaginal Cream MARILIA ([facility]) Doxycycline Monohydrate 100 MG Oral Capsule MARILIA ([facility]) Methylprednisolone 2 MG Oral Tablet [Medrol] [facility]ILIA ([facility]) Methylprednisolone 4 MG Oral Tablet [facility] ([facility]) Oxycodone Hydrochloride 5 MG Oral Tablet [facility] ([facility]) tramadol hydrochloride 50 MG Oral Tablet [facility] ([facility]) Amoxicillin 500 MG / Clavulanate 125 MG Oral Tablet [facility] ([facility]) Acetaminophen 325 MG / Oxycodone Hydrochloride 5 MG Oral Tablet [facility] ([facility]) Prednisone 20 MG Oral Tablet [facility] ([facility]) Amoxicillin 500 MG / Clavulanate 125 MG Oral Tablet [facility] ([facility]) Alprazolam 1 MG Oral Tablet [facility] ([facility]) 0.3 ML Enoxaparin sodium 100 MG/ML Prefilled Syringe MARILIA ([facility]) cefdinir 300 MG Oral Capsule [facility] ([facility]) Ciprofloxacin 250 MG Oral Tablet [facility] ([facility]) Doxycycline Monohydrate 100 MG Oral Capsule [facility] ([facility]) Acetaminophen 325 MG / Oxycodone Hydrochloride 5 MG Oral Tablet [facility] ([facility]) Prednisone 20 MG Oral Tablet [facility] ([facility]) Methylprednisolone 2 MG Oral Tablet [Medrol] [facility]IA ([facility]) Methylprednisolone 4 MG Oral Tablet [facility] ([facility]) Estradiol 0.1 MG/ML Vaginal Cream MARILIA ([facility]) Oxycodone Hydrochloride 5 MG Oral Tablet [facility] ([facility]) tramadol hydrochloride 50 MG Oral Tablet [facility] ([facility]) cefdinir 300 MG Oral Capsule [facility] ([facility]) Alprazolam 1 MG Oral Tablet [facility] ([facility]) Methylprednisolone 2 MG Oral Tablet [Medrol] [facility] ([facility]) Methylprednisolone 4 MG Oral Tablet [facility] ([facility]) Oxycodone Hydrochloride 5 MG Oral Tablet [facility] ([facility]) Acetaminophen 325 MG / Oxycodone Hydrochloride 5 MG Oral Tablet [facility] ([facility]) Prednisone 20 MG Oral Tablet [facility] ([facility]) Amoxicillin 500 MG / Clavulanate 125 MG Oral Tablet [facility] ([facility]) Ciprofloxacin 250 MG Oral Tablet [facility] ([facility]) Doxycycline Monohydrate 100 MG Oral Capsule MARILIA ([facility]) 0.3 ML Enoxaparin sodium 100 MG/ML Prefilled Syringe [facility]IA ([facility]) Estradiol 0.1 MG/ML Vaginal Cream MARILIA ([facility]) tramadol hydrochloride 50 MG Oral Tablet [facility] ([facility]) Doxycycline Monohydrate 100 MG Oral Capsule [facility] ([facility]) Oxycodone Hydrochloride 5 MG Oral Tablet [facility] ([facility]) Alprazolam 1 MG Oral Tablet [facility] ([facility]) Amoxicillin 500 MG / Clavulanate 125 MG Oral Tablet [facility] ([facility]) 0.3 ML Enoxaparin sodium 100 MG/ML Prefilled Syringe [facility] ([facility]) Acetaminophen 325 MG / Oxycodone Hydrochloride 5 MG Oral Tablet [facility] ([facility]) Estradiol 0.1 MG/ML Vaginal Cream [facility] ([facility]) cefdinir 300 MG Oral Capsule [facility] ([facility]) Ciprofloxacin 250 MG Oral Tablet [facility] ([facility]) Methylprednisolone 2 MG Oral Tablet [Medrol] [facility] ([facility]) Prednisone 20 MG Oral Tablet [facility] ([facility]) Methylprednisolone 4 MG Oral Tablet [facility] ([facility]) tramadol hydrochloride 50 MG Oral Tablet [facility] ([facility]) Methylprednisolone 2 MG Oral Tablet [Medrol] [facility] ([facility]) Alprazolam 1 MG Oral Tablet [facility] ([facility]) Amoxicillin 500 MG / Clavulanate 125 MG Oral Tablet [facility] ([facility]) cefdinir 300 MG Oral Capsule [facility] ([facility]) Ciprofloxacin 250 MG Oral Tablet [facility] ([facility]) Doxycycline Monohydrate 100 MG Oral Capsule [facility] ([facility]) 0.3 ML Enoxaparin sodium 100 MG/ML Prefilled Syringe [facility]IA ([facility]) Estradiol 0.1 MG/ML Vaginal Cream MARILIA ([facility]) Methylprednisolone 4 MG Oral Tablet [facility] ([facility]) Oxycodone Hydrochloride 5 MG Oral Tablet [facility] ([facility]) Acetaminophen 325 MG / Oxycodone Hydrochloride 5 MG Oral Tablet [facility] ([facility]) Prednisone 20 MG Oral Tablet [facility] ([facility]) tramadol hydrochloride 50 MG Oral Tablet [facility] ([facility]) Amoxicillin 500 MG / Clavulanate 125 MG Oral Tablet [facility] ([facility]) tramadol hydrochloride 50 MG Oral Tablet [facility] ([facility]) glimepiride 1 MG Oral Tablet [facility] ([facility]) Methylprednisolone 2 MG Oral Tablet [Medrol] [facility] ([facility]) Methylprednisolone 4 MG Oral Tablet [facility] ([facility]) Oxycodone Hydrochloride 5 MG Oral Tablet [facility] ([facility]) Acetaminophen 325 MG / Oxycodone Hydrochloride 5 MG Oral Tablet [facility] ([facility]) Prednisone 20 MG Oral Tablet [facility] ([facility]) Ciprofloxacin 250 MG Oral Tablet [facility] ([facility]) Cyclobenzaprine hydrochloride 5 MG Oral Tablet [facility] ([facility]) Doxycycline Monohydrate 100 MG Oral Capsule [facility] ([facility]) 0.3 ML Enoxaparin sodium 100 MG/ML Prefilled Syringe [facility] ([facility]) Estradiol 0.1 MG/ML Vaginal Cream [facility]IA ([facility]) Oxycodone Hydrochloride 5 MG Oral Tablet [facility] ([facility]) Amoxicillin 500 MG / Clavulanate 125 MG Oral Tablet [facility] ([facility]) Ciprofloxacin 250 MG Oral Tablet [facility] ([facility]) Cyclobenzaprine hydrochloride 5 MG Oral Tablet [facility] ([facility]) Acetaminophen 325 MG / Oxycodone Hydrochloride 5 MG Oral Tablet [facility] ([facility]) Prednisone 20 MG Oral Tablet [facility] ([facility]) tramadol hydrochloride 50 MG Oral Tablet [facility] ([facility]) Ciprofloxacin 250 MG Oral Tablet [facility] ([facility]) Amoxicillin 500 MG / Clavulanate 125 MG Oral Tablet [facility] ([facility]) Estradiol 0.1 MG/ML Vaginal Cream MARILIA ([facility]) glimepiride 1 MG Oral Tablet [facility] ([facility]) glimepiride 2 MG Oral Tablet [facility] ([facility]) Methylprednisolone 2 MG Oral Tablet [Medrol] [facility] ([facility]) Methylprednisolone 4 MG Oral Tablet [facility] ([facility]) Doxycycline Monohydrate 100 MG Oral Capsule [facility] ([facility]) 0.3 ML Enoxaparin sodium 100 MG/ML Prefilled Syringe [facility]IA ([facility]) Estradiol 0.1 MG/ML Vaginal Cream MARILIA ([facility]) glimepiride 1 MG Oral Tablet [facility] ([facility]) Methylprednisolone 2 MG Oral Tablet [Medrol] [facility] ([facility]) Methylprednisolone 4 MG Oral Tablet [facility] ([facility]) Doxycycline Monohydrate 100 MG Oral Capsule [facility] ([facility]) 0.3 ML Enoxaparin sodium 100 MG/ML Prefilled Syringe [facility]IA ([facility]) tramadol hydrochloride 50 MG Oral Tablet [facility] ([facility]) Oxycodone Hydrochloride 5 MG Oral Tablet [facility] ([facility]) Acetaminophen 325 MG / Oxycodone Hydrochloride 5 MG Oral Tablet [facility] ([facility]) Prednisone 20 MG Oral Tablet [facility] ([facility]) Methylprednisolone 2 MG Oral Tablet [Medrol] [facility] ([facility]) Amoxicillin 500 MG / Clavulanate 125 MG Oral Tablet [facility] ([facility]) Ciprofloxacin 250 MG Oral Tablet [facility] ([facility]) Doxycycline Monohydrate 100 MG Oral Capsule [facility] ([facility]) 0.3 ML Enoxaparin sodium 100 MG/ML Prefilled Syringe [facility]ILIA ([facility]) Methylprednisolone 4 MG Oral Tablet [facility] ([facility]) Estradiol 0.1 MG/ML Vaginal Cream MARILIA ([facility]) glimepiride 1 MG Oral Tablet [facility] ([facility]) glimepiride 2 MG Oral Tablet [facility] ([facility]) Oxycodone Hydrochloride 5 MG Oral Tablet [facility] ([facility]) Acetaminophen 325 MG / Oxycodone Hydrochloride 5 MG Oral Tablet [facility] ([facility]) Prednisone 20 MG Oral Tablet [facility] ([facility]) tramadol hydrochloride 50 MG Oral Tablet [facility]IA ([facility])
== END 2021-01-23 17:13 | disposition left against medical advice (07) ==
LOC: M ED 14:30
DX: Z53.29 Procedure and treatment not carried out because of patient's decision for other reasons (principal)

== ENCOUNTER → 2021-02-02 | Outpatient (CLI) | payer OTHER ==
[~2021-02-02] MED LIST changes: +ADV250INH INH; +CEFD300C41 PO; +CEFD300CAP PO; -CELE1CAP9; +CELE1CAP9 PO; +FLUT1BLS5 INH; +GABA-282 PO; -LEVO500T3 PO; +LEVO500T4 PO; +MAGN240P PO; +NEUR300C PO; +NITR50CA34 PO; +POLY1POW38 PO; +[UNRECOGNIZED DRUG - CODE] NEB
[2021-02-02 17:39] LABS: BASO % 0.5 % (0.0-1.0); EOS # 0.2 10^3/uL (0.0-0.5); EOS % 2.4 % (0.0-3.0); HEMOGLOBIN 14.1 g/dl (12.0-15.5); LYMPH # 2.7 10^3/uL (1.5-5.0); LYMPH % 31.8 % (24.0-44.0); MEAN CORPUSCULAR HEMOGLOBIN 28.2 pg (27.0-33.0); MEAN CORPUSCULAR HGB CONC 32.8 g/dl (32.0-36.5); MONO # 0.7 10^3/uL (0.0-0.8); NEUTROPHILS # 4.8 10^3/uL (1.5-8.5); NEUTROPHILS % 56.9 % (36.0-66.0); PLATELET COUNT, AUTOMATED 280 10^3/uL (150-450); WHITE BLOOD COUNT 8.5 10^3/uL (4.0-10.0)
[2021-02-02 17:54] LABS: ALBUMIN 4.1 GM/DL (3.2-5.2); ALT/SGPT 29 U/L (12-78); BLOOD UREA NITROGEN 15 MG/DL (7-18); CALCIUM LEVEL 9.8 MG/DL (8.8-10.2); CARBON DIOXIDE LEVEL 34 MEQ/L (21-32); CHLORIDE LEVEL 92 MEQ/L (98-107); CREATININE FOR GFR 0.86 MG/DL (0.55-1.30); GLOMERULAR FILTRATION RATE > 60.0 (>45); GLUCOSE, FASTING 111 MG/DL (70-100); LIPASE 62 U/L (73-393); POTASSIUM SERUM 3.5 MEQ/L (3.5-5.1); SODIUM LEVEL 133 MEQ/L (136-145); TOTAL PROTEIN 8.4 GM/DL (6.4-8.2)
== END ==
LOC: M LAB 15:44
PROVIDERS: ATTEND Family Medicine
DX: R19.7 Diarrhea, unspecified (principal)

== ENCOUNTER 2021-02-09 16:55 | Inpatient (IN) | payer OTHER ==
[~2021-02-09] VITALS: Ht 167.6 cm; Wt 92.0 kg
[~2021-02-09 16:55] MED LIST changes: -ADV250INH INH; -CEFD300C41 PO; -CEFD300CAP PO; -FLUT1BLS5 INH; -GABA-282 PO; -MAGN240P PO; -NEUR300C PO; -NITR50CA34 PO; -POLY1POW38 PO; -[UNRECOGNIZED DRUG - CODE] NEB
[2021-02-09 18:14] LABS: BASO # 0.1 10^3/uL (0.0-0.2); BASO % 0.8 % (0.0-1.0); EOS # 0.2 10^3/uL (0.0-0.5); EOS % 2.7 % (0.0-3.0); HEMATOCRIT 39.6 % (36.0-47.0); HEMOGLOBIN 13.2 g/dl (12.0-15.5); LYMPH # 2.7 10^3/uL (1.5-5.0); MEAN CORPUSCULAR HGB CONC 33.3 g/dl (32.0-36.5); MEAN CORPUSCULAR VOLUME 84.1 fl (80.0-96.0); MONO # 0.4 10^3/uL (0.0-0.8); MONO % 6.6 % (2.0-8.0); NEUTROPHILS # 2.8 10^3/uL (1.5-8.5); NEUTROPHILS % 45.7 % (36.0-66.0); PLATELET COUNT, AUTOMATED 280 10^3/uL (150-450); RED BLOOD COUNT 4.71 10^6/uL (4.00-5.40)
[2021-02-09 18:38] LABS: CK-MB VALUE MASS 1.6 NG/ML (<3.6); MB/CK RELATIVE INDEX 1.8 (< OR =4)
[2021-02-09 18:45] LABS: BLOOD UREA NITROGEN 10 MG/DL (7-18); CALCIUM LEVEL 10.2 MG/DL (8.8-10.2); CARBON DIOXIDE LEVEL 29 MEQ/L (21-32); CHLORIDE LEVEL 98 MEQ/L (98-107); CREATININE FOR GFR 0.84 MG/DL (0.55-1.30); FREE T4 1.82 NG/DL (0.76-1.46); GLOMERULAR FILTRATION RATE > 60.0 (>45); GLUCOSE, FASTING 116 MG/DL (70-100); MAGNESIUM LEVEL 1.7 MG/DL (1.8-2.4); POTASSIUM SERUM 3.3 MEQ/L (3.5-5.1); SODIUM LEVEL 137 MEQ/L (136-145); THYROID STIMULATING HORMONE 0.251 uIU/ML (0.358-3.740)
[2021-02-09] MEDS ORDERED: POTASSIUM CHLORIDE 10MEQ SR TABLET PO ONE (19:00)
[2021-02-09 19:15] LABS: RSV AMPLIFICATION NEGATIVE (NEGATIVE)
[2021-02-09] MEDS ORDERED: GLUCAGON INJ 1MG VIAL SC PRN (20:05)
[2021-02-09] MEDS ORDERED: MOM 30ML SUSPENSION UDC PO PRN (20:05)
[2021-02-09] MEDS ORDERED: GLUCOSE 4GM CHEW TABLET PO PRN (20:05)
[2021-02-09] MEDS ORDERED: ACETAMINOPHEN TAB 650MG DOSE (2X325MG) PO PRN (20:05)
[2021-02-09] MEDS ORDERED: DEXTROSE 50% 50 ML SYRINGE IV PRN (20:05)
[2021-02-09] MEDS ORDERED: LR 1,000 ML IV SCH (20:30)
[2021-02-09] MEDS: HumaLOG INSULIN (NovoLOG) PER UNIT SC SCH (21:00)
[2021-02-09] MEDS ORDERED: NYST1POW9 TOP (21:01)
[2021-02-09] MEDS ORDERED: ASPI81TA26 PO (21:01)
[2021-02-09] MEDS ORDERED: FLUT1BLS5 INH (21:01)
[2021-02-09] MEDS ORDERED: [UNRECOGNIZED DRUG - CODE] NEB (21:01)
[2021-02-09] MEDS ORDERED: HOME MED LIST COMPLETE! XX SCH (21:05)
[2021-02-09] MEDS ORDERED: ALBUTEROL SULFATE 2.5 MG/0.5 ML INH NEB SOLN INH PRN (21:10)
[2021-02-09] MEDS ORDERED: CYCLOBENZAPRINE 5MG TABLET PO PRN (21:10)
[2021-02-09] MEDS ORDERED: ALBUTEROL 90 MCG/ACT 8GM HFA INHALER INH PRN (21:10)
[2021-02-09 22:30] VITALS: BP_SYST 101; BP_SYST 107; BP_SYST 96; BP_DIAS 51; BP_DIAS 68; BP_DIAS 70
[2021-02-09] MEDS: RAMELTEON 8 MG TAB (ROZEREM) PO SCH (22:57)
[2021-02-09] MEDS: BACLOFEN 10 MG TAB PO SCH (22:58)
[2021-02-09] MEDS: AMITRIPTYLINE 25MG TABLET PO SCH (22:58)
[2021-02-09] MEDS: GABAPENTIN 400MG CAP PO SCH (22:58)
[2021-02-09] MEDS: MAGNESIUM OXIDE 400MG TAB (MAG-OX) PO SCH (22:58)
[2021-02-10] MEDS: LEVOTHYROXINE 50MCG TABLET (0.05MG) PO SCH (05:56)
[2021-02-10 06:00] VITALS: BP 113/67
[2021-02-10] MEDS ORDERED: LEVOTHYROXINE 75MCG TABLET (0.075MG) PO SCH (06:00)
[2021-02-10 06:08] VITALS: BP_SYST 108; BP_SYST 112; BP_SYST 113; BP_DIAS 67; BP_DIAS 69
[2021-02-10 07:27] LABS: BASO % 0.8 % (0.0-1.0); EOS # 0.2 10^3/uL (0.0-0.5); EOS % 3.9 % (0.0-3.0); HEMATOCRIT 35.9 % (36.0-47.0); HEMOGLOBIN 11.3 g/dl (12.0-15.5); LYMPH # 2.5 10^3/uL (1.5-5.0); LYMPH % 50.9 % (24.0-44.0); MEAN CORPUSCULAR HEMOGLOBIN 27.5 pg (27.0-33.0); MEAN CORPUSCULAR HGB CONC 31.5 g/dl (32.0-36.5); MEAN CORPUSCULAR VOLUME 87.3 fl (80.0-96.0); MONO # 0.5 10^3/uL (0.0-0.8); MONO % 9.2 % (2.0-8.0); NEUTROPHILS # 1.7 10^3/uL (1.5-8.5); NEUTROPHILS % 35.2 % (36.0-66.0); PLATELET COUNT, AUTOMATED 224 10^3/uL (150-450); RED BLOOD COUNT 4.11 10^6/uL (4.00-5.40); WHITE BLOOD COUNT 4.9 10^3/uL (4.0-10.0)
[2021-02-10] MEDS: HumaLOG INSULIN (NovoLOG) PER UNIT SC SCH ×4 (07:30→21:00)
[2021-02-10] MEDS: ADVAIR HFA 230/21MCG INHALER INH SCH ×2 (07:47→20:22)
[2021-02-10 07:53] LABS: BLOOD UREA NITROGEN 12 MG/DL (7-18); CARBON DIOXIDE LEVEL 32 MEQ/L (21-32); CHLORIDE LEVEL 101 MEQ/L (98-107); CREATININE FOR GFR 0.77 MG/DL (0.55-1.30); GLOMERULAR FILTRATION RATE > 60.0 (>45); GLUCOSE, FASTING 134 MG/DL (70-100); POTASSIUM SERUM 3.1 MEQ/L (3.5-5.1); SODIUM LEVEL 140 MEQ/L (136-145)
[2021-02-10] MEDS ORDERED: SENNA 8.6 MG TAB (SENOKOT) PO SCH (09:00)
[2021-02-10] MEDS: FOLIC ACID 1 MG TAB PO SCH (10:31)
[2021-02-10] MEDS: ROSUVASTATIN 10 MG TAB (CRESTOR) PO SCH (10:31)
[2021-02-10] MEDS: PANTOPRAZOLE 40MG TAB (PROTONIX) PO SCH (10:31)
[2021-02-10] MEDS: GABAPENTIN 400MG CAP PO SCH ×3 (10:31→20:26)
[2021-02-10] MEDS: ASPIRIN 81MG ENTERIC TABLET PO SCH (10:32)
[2021-02-10] MEDS: DULoxetine 30MG CAPSULE (CYMBALTA) PO SCH ×2 (10:32→12:00)
[2021-02-10] MEDS: MAGNESIUM OXIDE 400MG TAB (MAG-OX) PO SCH ×2 (10:32→20:26)
[2021-02-10] MEDS: POTASSIUM CHLORIDE 10MEQ SR TABLET PO SCH (10:32)
[2021-02-10] MEDS: BACLOFEN 10 MG TAB PO SCH ×4 (10:32→20:26)
[2021-02-10] MEDS: ENOXAPARIN 40MG/0.4ML SYRINGE (J1650 PER 10MG) SC SCH (10:33)
[2021-02-10] MEDS: ESCITALOPRAM OXALATE 10 MG TAB (LEXAPRO) PO SCH (12:00)
[2021-02-10] MEDS: CelecoXIB (CeleBREX) 100 MG CAP PO SCH (12:57)
[2021-02-10] MEDS ORDERED: POTASSIUM CHLORIDE 10MEQ SR TABLET PO ONE (13:55)
[2021-02-10 14:00] VITALS: BP 94/53
[2021-02-10] MEDS ORDERED: CROMOLYN SODIUM 20 MG/2 ML NEB SCH (14:00)
[2021-02-10 15:31] LABS: MAGNESIUM LEVEL 1.8 MG/DL (1.8-2.4)
[2021-02-10] MEDS: NYSTATIN 100,000 UNITS/GM TOPICAL PWD 15 GM TOP SCH ×2 (17:07→20:27)
[2021-02-10] MEDS: RAMELTEON 8 MG TAB (ROZEREM) PO SCH (20:25)
[2021-02-10] MEDS: AMITRIPTYLINE 25MG TABLET PO SCH (20:26)
[2021-02-10 20:44] VITALS: BP_SYST 103; BP_SYST 117; BP_SYST 99; BP_DIAS 53; BP_DIAS 60; BP_DIAS 67
[2021-02-10 22:00] VITALS: BP 99/53
[2021-02-11 06:00] VITALS: BP_SYST 111; BP_SYST 113; BP_SYST 94; BP_DIAS 66; BP_DIAS 68; BP_DIAS 69
[2021-02-11] MEDS: LEVOTHYROXINE 50MCG TABLET (0.05MG) PO SCH (06:15)
[2021-02-11] MEDS: ADVAIR HFA 230/21MCG INHALER INH SCH ×2 (08:05→20:20)
[2021-02-11 08:11] LABS: BASO % 0.6 % (0.0-1.0); EOS # 0.2 10^3/uL (0.0-0.5); EOS % 4.4 % (0.0-3.0); HEMATOCRIT 33.4 % (36.0-47.0); HEMOGLOBIN 10.7 g/dl (12.0-15.5); LYMPH # 1.7 10^3/uL (1.5-5.0); LYMPH % 34.1 % (24.0-44.0); MEAN CORPUSCULAR HEMOGLOBIN 28.1 pg (27.0-33.0); MEAN CORPUSCULAR VOLUME 87.7 fl (80.0-96.0); MONO # 0.4 10^3/uL (0.0-0.8); MONO % 8.6 % (2.0-8.0); NEUTROPHILS # 2.6 10^3/uL (1.5-8.5); NEUTROPHILS % 52.1 % (36.0-66.0); PLATELET COUNT, AUTOMATED 236 10^3/uL (150-450); RED BLOOD COUNT 3.81 10^6/uL (4.00-5.40)
[2021-02-11 08:34] LABS: BLOOD UREA NITROGEN 12 MG/DL (7-18); CALCIUM LEVEL 9.2 MG/DL (8.8-10.2); CARBON DIOXIDE LEVEL 33 MEQ/L (21-32); CHLORIDE LEVEL 104 MEQ/L (98-107); CREATININE FOR GFR 0.68 MG/DL (0.55-1.30); GLOMERULAR FILTRATION RATE > 60.0 (>45); GLUCOSE, FASTING 266 MG/DL (70-100); POTASSIUM SERUM 3.1 MEQ/L (3.5-5.1); SODIUM LEVEL 142 MEQ/L (136-145)
[2021-02-11] MEDS: ASPIRIN 81MG ENTERIC TABLET PO SCH (09:32)
[2021-02-11] MEDS: ROSUVASTATIN 10 MG TAB (CRESTOR) PO SCH (09:32)
[2021-02-11] MEDS: DULoxetine 30MG CAPSULE (CYMBALTA) PO SCH ×2 (09:32→17:58)
[2021-02-11] MEDS: POTASSIUM CHLORIDE 10MEQ SR TABLET PO SCH (09:32)
[2021-02-11] MEDS: BACLOFEN 10 MG TAB PO SCH ×4 (09:33→20:15)
[2021-02-11] MEDS: ENOXAPARIN 40MG/0.4ML SYRINGE (J1650 PER 10MG) SC SCH (09:33)
[2021-02-11] MEDS: MAGNESIUM OXIDE 400MG TAB (MAG-OX) PO SCH ×2 (09:33→20:15)
[2021-02-11] MEDS: GABAPENTIN 400MG CAP PO SCH ×3 (09:33→20:15)
[2021-02-11] MEDS: PANTOPRAZOLE 40MG TAB (PROTONIX) PO SCH (09:33)
[2021-02-11] MEDS: HumaLOG INSULIN (NovoLOG) PER UNIT SC SCH ×4 (09:34→20:20)
[2021-02-11] MEDS: NYSTATIN 100,000 UNITS/GM TOPICAL PWD 15 GM TOP SCH ×2 (09:35→20:19)
[2021-02-11] MEDS ORDERED: POTASSIUM CHLORIDE 10MEQ SR TABLET PO ONE (10:15)
[2021-02-11] MEDS ORDERED: cefTRIAXone SOD 1 GM in D5W MINI-BAG PLUS 50 ML IV SCH (12:00)
[2021-02-11 14:00] VITALS: BP 103/66
[2021-02-11] MEDS: FOLIC ACID 1 MG TAB PO SCH (17:58)
[2021-02-11] MEDS: CelecoXIB (CeleBREX) 100 MG CAP PO SCH (17:59)
[2021-02-11] MEDS: ESCITALOPRAM OXALATE 10 MG TAB (LEXAPRO) PO SCH (17:59)
[2021-02-11] MEDS: AMITRIPTYLINE 25MG TABLET PO SCH (20:15)
[2021-02-11] MEDS: RAMELTEON 8 MG TAB (ROZEREM) PO SCH (20:15)
[2021-02-11 22:00] VITALS: BP 111/65
[2021-02-11 22:27] VITALS: BP_SYST 107; BP_SYST 110; BP_SYST 111; BP_DIAS 63; BP_DIAS 65; BP_DIAS 67
[2021-02-12 06:00] VITALS: BP_SYST 102; BP_SYST 105; BP_SYST 119; BP_DIAS 60; BP_DIAS 62; BP_DIAS 91
[2021-02-12] MEDS: LEVOTHYROXINE 50MCG TABLET (0.05MG) PO SCH (06:18)
[2021-02-12 06:58] LABS: BASO % 0.8 % (0.0-1.0); EOS # 0.2 10^3/uL (0.0-0.5); EOS % 4.1 % (0.0-3.0); HEMATOCRIT 33.2 % (36.0-47.0); HEMOGLOBIN 10.4 g/dl (12.0-15.5); LYMPH # 2.2 10^3/uL (1.5-5.0); LYMPH % 44.5 % (24.0-44.0); MEAN CORPUSCULAR HEMOGLOBIN 28.1 pg (27.0-33.0); MEAN CORPUSCULAR HGB CONC 31.3 g/dl (32.0-36.5); MEAN CORPUSCULAR VOLUME 89.7 fl (80.0-96.0); MONO # 0.4 10^3/uL (0.0-0.8); MONO % 7.2 % (2.0-8.0); NEUTROPHILS # 2.1 10^3/uL (1.5-8.5); NEUTROPHILS % 43.2 % (36.0-66.0); PLATELET COUNT, AUTOMATED 226 10^3/uL (150-450); WHITE BLOOD COUNT 4.8 10^3/uL (4.0-10.0)
[2021-02-12 07:22] LABS: BLOOD UREA NITROGEN 11 MG/DL (7-18); CALCIUM LEVEL 9.1 MG/DL (8.8-10.2); CARBON DIOXIDE LEVEL 30 MEQ/L (21-32); CHLORIDE LEVEL 108 MEQ/L (98-107); CREATININE FOR GFR 0.64 MG/DL (0.55-1.30); GLOMERULAR FILTRATION RATE > 60.0 (>45); GLUCOSE, FASTING 189 MG/DL (70-100); POTASSIUM SERUM 3.6 MEQ/L (3.5-5.1); SODIUM LEVEL 144 MEQ/L (136-145)
[2021-02-12] MEDS: ADVAIR HFA 230/21MCG INHALER INH SCH (08:13)
[2021-02-12] MEDS: ASPIRIN 81MG ENTERIC TABLET PO SCH (08:24)
[2021-02-12] MEDS: MAGNESIUM OXIDE 400MG TAB (MAG-OX) PO SCH (08:25)
[2021-02-12] MEDS: POTASSIUM CHLORIDE 10MEQ SR TABLET PO SCH (08:25)
[2021-02-12] MEDS: PANTOPRAZOLE 40MG TAB (PROTONIX) PO SCH (08:25)
[2021-02-12] MEDS: BACLOFEN 10 MG TAB PO SCH (08:25)
[2021-02-12] MEDS: GABAPENTIN 400MG CAP PO SCH (08:25)
[2021-02-12] MEDS: ROSUVASTATIN 10 MG TAB (CRESTOR) PO SCH (08:25)
[2021-02-12] MEDS: DULoxetine 30MG CAPSULE (CYMBALTA) PO SCH (08:25)
[2021-02-12] MEDS: HumaLOG INSULIN (NovoLOG) PER UNIT SC SCH (08:26)
[2021-02-12] MEDS: ENOXAPARIN 40MG/0.4ML SYRINGE (J1650 PER 10MG) SC SCH (08:26)
[2021-02-12] MEDS: NYSTATIN 100,000 UNITS/GM TOPICAL PWD 15 GM TOP SCH (08:27)
[2021-02-12] MEDS ORDERED: CEFD300C41 PO (09:55)
[2021-04-01] MEDS ORDERED: NITR50CA34 PO (10:14)
[2021-04-01] MEDS ORDERED: ADV250INH INH (10:14)
[2021-04-01] MEDS ORDERED: DICL20GE TP (10:14)
[2021-04-01] MEDS ORDERED: POLY1POW38 PO (10:14)
[2021-04-01] MEDS ORDERED: MAGN240P PO (10:14)
[2021-04-01] MEDS ORDERED: MAGN400T2 PO (10:14)
[2021-04-01] MEDS ORDERED: NEUR300C PO (10:14)
== END 2021-02-12 11:18 | disposition home or self-care (01) | DRG 422 ==
LOC: EDBD 16:55 → M ED 16:55 → M ED INP 19:57 → M MSPAV 22:31
PROVIDERS: ADMIT Family Medicine; ATTEND Internal Medicine
DX: E86.9 Volume depletion, unspecified (principal); J45.50 Severe persistent asthma, uncomplicated; M50.30 Other cervical disc degeneration, unspecified cervical region; M51.36 Other intervertebral disc degeneration, lumbar region; E55.9 Vitamin D deficiency, unspecified; E78.5 Hyperlipidemia, unspecified; I11.0 Hypertensive heart disease with heart failure; E03.9 Hypothyroidism, unspecified; I50.32 Chronic diastolic (congestive) heart failure; E53.8 Deficiency of other specified B group vitamins; F32.A Depression, unspecified; G47.00 Insomnia, unspecified; M79.7 Fibromyalgia; M81.0 Age-related osteoporosis without current pathological fracture; K21.9 Gastro-esophageal reflux disease without esophagitis; N39.0 Urinary tract infection, site not specified; E11.9 Type 2 diabetes mellitus without complications; R51.9 Headache, unspecified; K59.09 Other constipation; G47.33 Obstructive sleep apnea (adult) (pediatric); G89.4 Chronic pain syndrome; E66.9 Obesity, unspecified; Z20.822 Contact with and (suspected) exposure to COVID-19; Z79.82 Long term (current) use of aspirin; Z86.711 Personal history of pulmonary embolism; Z79.899 Other long term (current) drug therapy; Z79.01 Long term (current) use of anticoagulants; Z79.84 Long term (current) use of oral hypoglycemic drugs; Z88.2 Allergy status to sulfonamides; Z90.49 Acquired absence of other specified parts of digestive tract; Z88.8 Allergy status to other drugs, medicaments and biological substances; Z91.018 Allergy to other foods; R55 Syncope and collapse; Z68.32 Body mass index [BMI] 32.0-32.9, adult

== ENCOUNTER 2021-02-14 09:58 | Inpatient (IN) | payer OTHER ==
[~2021-02-14] VITALS: Ht 167.6 cm; Wt 99.8 kg
[~2021-02-14 09:58] MED LIST changes: +CEFD1CAP8 PO; +FLUT1BLS5 INH; +LEVO500T3 PO; -LEVO500T4 PO; +[UNRECOGNIZED DRUG - CODE] NEB
--- NOTE | 2021-02-14 10:48 | REP ---
INDICATION: Altered Mental Status. COMPARISON: Portable chest, 02/09/2021. TECHNIQUE: AP chest image was obtained. FINDINGS: The lungs are clear. There is cardiomegaly and aortic ectasia consistent with benign essential hypertension. There are no significant bony abnormalities of the chest. IMPRESSION: 1. No evidence of acute cardiopulmonary pathology. 2. Findings consistent with hypertension. 3. No significant change. <Electronically signed by Natan Perez > 02/14/21 [id number]
--- NOTE | 2021-02-14 10:56 | REP ---
INDICATION: fall. COMPARISON: None. TECHNIQUE: Contiguous 2 mm thick axial projection images were obtained through the cervical spine. 2D sagittal and coronal reconstructions were performed. FINDINGS: No evidence of fracture or dislocation. 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 There is degenerative disc disease, C3-4 through C7-T1 with narrowing of the intervertebral disc spaces and marginal osteophytes. There is bilateral facet arthropathy, C3-4 through C7-T1. The visualized skull base is unremarkable. There is a mucous retention cyst or polyp in the right maxillary sinus. The perivertebral soft tissues have an unremarkable unenhanced appearance. The visualized lung apices are normal. IMPRESSION: 1. No evidence of acute bony injury. 2. Multilevel degenerative disc disease of the cervical spine. 3. Other findings as noted. <Electronically signed by Natan Perez > 02/14/21 [id number]
--- NOTE | 2021-02-14 11:03 | REP ---
INDICATION: fall. COMPARISON: CT head without contrast, 02/11/2021. TECHNIQUE: Contiguous 5 mm thick axial projection images were obtained through the head. 2D coronal reconstructions were performed. FINDINGS: There is calcific vascular disease of the intracranial portion of both internal carotid arteries. There is mild diffuse cerebral atrophy with concomitant ventriculomegaly. There is no evidence of acute intracranial hemorrhage or infarction. There are no abnormal intracranial masses or mass effects. The skull base and calvarium are normal. The visualized mastoid air cells and paranasal sinuses are clear. The intraorbital contents and visualized extracranial soft tissues are unremarkable. IMPRESSION: 1. No evidence of acute intracranial pathology. 2. Mild cerebral atrophy. 3. 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 4. No significant change. <Electronically signed by Natan Perez > 02/14/21 [id number]
[2021-02-14 12:03] LABS: BASO # 0.1 10^3/uL (0.0-0.2); BASO % 0.8 % (0.0-1.0); EOS # 0.1 10^3/uL (0.0-0.5); EOS % 0.9 % (0.0-3.0); HEMATOCRIT 34.1 % (36.0-47.0); HEMOGLOBIN 11.1 g/dl (12.0-15.5); LYMPH # 2.2 10^3/uL (1.5-5.0); LYMPH % 34.2 % (24.0-44.0); MEAN CORPUSCULAR HGB CONC 32.6 g/dl (32.0-36.5); MEAN CORPUSCULAR VOLUME 85.9 fl (80.0-96.0); MONO # 0.6 10^3/uL (0.0-0.8); MONO % 9.2 % (2.0-8.0); NEUTROPHILS # 3.5 10^3/uL (1.5-8.5); NEUTROPHILS % 54.6 % (36.0-66.0); PLATELET COUNT, AUTOMATED 238 10^3/uL (150-450); RED BLOOD COUNT 3.97 10^6/uL (4.00-5.40); WHITE BLOOD COUNT 6.4 10^3/uL (4.0-10.0)
--- OUTSIDE RECORDS SUMMARY | 2021-02-14 12:26 | CCD ---
Author Author [facility] Address Unknown Phone Unavailable Care Team Providers Care Fiber Analyst Name Role Phone Jean-Pierre Ling MD Unavailable [...] MD Unavailable Unavailable Bridger Rojo Unavailable Unavailable Rojo, [...] Gao MD Unavailable Unavailable Jumalon, M Mar PLATE SLITTER AND INSPECTOR Unavailable Unavailable Jumalon, M Mar PLATE SLITTER AND INSPECTOR Unavailable Unavailable Jumalon, M Mar PLATE SLITTER AND INSPECTOR Unavailable Unavailable Jumalon, M Mar PLATE SLITTER AND INSPECTOR Unavailable Unavailable Jumalon, M Mar PLATE SLITTER AND INSPECTOR Unavailable Unavailable Jumalon, M Mar PLATE SLITTER AND INSPECTOR Unavailable Unavailable Jumalon, M Mar PLATE SLITTER AND INSPECTOR Unavailable Unavailable Jumalon, M Mar PLATE SLITTER AND INSPECTOR Unavailable Unavailable Jumalon, M Mar PLATE SLITTER AND INSPECTOR Unavailable Unavailable Jumalon, M Mar PLATE SLITTER AND INSPECTOR Unavailable Unavailable Jumalon, M Mar PLATE SLITTER AND INSPECTOR Unavailable Unavailable Jumalon, M Mar PLATE SLITTER AND INSPECTOR Unavailable Unavailable Jumalon, M Mar PLATE SLITTER AND INSPECTOR Unavailable Unavailable Jumalon, M Mar PLATE SLITTER AND INSPECTOR Unavailable Unavailable Jumalon, M Mar PLATE SLITTER AND INSPECTOR Unavailable Unavailable Jumalon, M Mar PLATE SLITTER AND INSPECTOR Unavailable Unavailable Jumalon, M Mar PLATE SLITTER AND INSPECTOR Unavailable Unavailable Jumalon, M Mar PLATE SLITTER AND INSPECTOR Unavailable Unavailable Jumalon, M Mar PLATE SLITTER AND INSPECTOR Unavailable Unavailable Jumalon, M Mar PLATE SLITTER AND INSPECTOR Unavailable Unavailable Jumalon, M Mar PLATE SLITTER AND INSPECTOR Unavailable Unavailable Jumalon, M Mar PLATE SLITTER AND INSPECTOR Unavailable Unavailable Jumalon, M Mar PLATE SLITTER AND INSPECTOR Unavailable Unavailable Jumalon, M Mar PLATE SLITTER AND INSPECTOR Unavailable Unavailable Jumalon, M Mar PLATE SLITTER AND INSPECTOR Unavailable Unavailable Jumalon, M Mar PLATE SLITTER AND INSPECTOR Unavailable Unavailable Jumalon, M Mar PLATE SLITTER AND INSPECTOR Unavailable Unavailable Jumalon, M Mar PLATE SLITTER AND INSPECTOR Unavailable Unavailable Jumalon, M Mar PLATE SLITTER AND INSPECTOR Unavailable Unavailable Jumalon, M Mar PLATE SLITTER AND INSPECTOR Unavailable Unavailable Rechlin, P Andrea DO Unavailable [...] Forest, Temitope Amira Unavailable Unavailable Forest, Temitope Aimra Unavailable Unavailable Forest, Temitope Amira Unavailable Unavailable [...] is protected by Article 27-F of the [place] State Public Health law. If you continue you may have access to information: Regarding HIV / AIDS; Provided by facilities licensed or operated by the [facility] Office of Mental Health; or Provided by the [facility] Office for People With Developmental Disabilities. If such information is present, then the following [facility] mandated warning applies: This information has [...] law may result in a fine or fci sentence or both. A general authorization for the release of medical or other information is NOT sufficient authorization for further disc losure. Family History Family Member Name Family Member Gender Family Member Status Date o f Status Description Data Source(s) Unknown Unknown Problem MEDENT ([facility], ) sister age 48 and another age 59 alive Encounters Encounter Providers Location Date Indications Data Source(s ) Unknown [address] [facility] [id number] 02/04/2021 12:00:00 AM EST eCW1 ([facility]) Unknown [address] [facility] [id number] 02/03/2021 12:00:00 AM EST [facility] Unknown [address] [facility] [address] 01/23/2021 12:00:00 AM EST eCW1 ([facility]) Outpatient [address] [facility] [id number] 01/22/2021 12:00:00 AM EST [facility]CW1 [facility] Unknown [address] [facility] Y [address] 01/20/2021 12:00:00 AM EST eCW1 ([facility]) Unknown [address] [facility] Y [address] 01/19/2021 12:00:00 AM EST [facility]CW1 ([facility]) Unknown [address] [facility] [id number] 01/16/2021 12:00:00 AM EST [facility]CW1 [facility]) Unknown [address] [facility] [address] 01/16/2021 12:00:00 AM EST eCW1 ([facility]) Unknown [address] [facility] [address] 01/14/2021 12:00:00 AM EST eCW1 ([facility]) Unknown [address] [facility] [place] [address] 01/01/2021 12:00:00 AM EDT eCW1 ([facility]) Unknown [address] [facility] [address] 12/29/2020 12:00:00 AM EDT eCW1 ([facility]) Unknown [address] [facility] [place] [address] 12/26/2020 12:00:00 AM EDT eCW1 ([facility]) Unknown [address] [facility] [place] [address] 12/19/2020 12:00:00 AM EDT eCW1 ([facility]) Unknown [address] [facility] [place] [address] 12/19/2020 12:00:00 AM EDT eCW1 ([facility]) Unknown [address] [facility] [place] [address] 12/19/2020 12:00:00 AM EDT eCW1 ([facility]) Unknown [address] [facility] [address] 12/16/2020 12:00:00 AM EDT eCW1 ([facility]) Unknown [address] [facility] [address] 12/15/2020 12:00:00 AM EDT eCW1 ([facility]) Unknown [address] [facility] [address] 12/05/2020 12:00:00 AM EDT eCW1 ([facility]) Unknown [address] [facility] [place] [address] 11/18/2020 12:00:00 AM EDT eCW1 ([facility]) Unknown [address] [facility], [place] [address] 11/17/2020 12:00:00 AM EDT eCW1 ([facility]) Outpatient [address] [facility] Y [address] 11/14/2020 12:00:00 AM EDT eCW1 ([facility]) Unknown [address] [facility], [place] [address] 11/14/2020 12:00:00 AM EDT eCW1 ([facility]) Unknown [address] [facility], [place] [address] 11/14/2020 12:00:00 AM EDT eCW1 ([facility]) Unknown [address] [facility] Y [address] 11/13/2020 12:00:00 AM EDT eCW1 ([facility]) Unknown [address] [facility] Y [address] 11/04/2020 12:00:00 AM EDT eCW1 ([facility]) Unknown [address] [facility] Y [address] 11/03/2020 12:00:00 AM EDT eCW1 ([facility]) Oleg Ling MD: [address] [address], [facility] [[email or web address] [place] [address], Ph. Attender: Oleg Ling MD [place] - [facility] - Main Office 10/24/2020 12:00:00 AM EDT MARILIA ([facility]) Office Visit Attender: Bren RODRIGES Physical Therapy 01:15:00 PM EDT MEDREMY ([facility]) Outpatient [address] [facility], [place] [address] 10/21/2020 12:00:00 AM EDT eCW1 ([facility]) Unknown [address] [facility], [facility] [address] 10/21/2020 12:00:00 AM EDT eCW1 ([facility]) Oleg Ling MD: [address], [address], [place] [address], Ph. [phone] Attender: Oleg Ling MD [place] [facility] 10/20/2020 12:00:00 AM EDT MARILIA ([facility]) Oleg Ling MD: [address], [address], [place] [address], Ph. [phone] Attender: Oleg Ling MD [place] - [facility] 10/20/2020 12:00:00 AM EDT MARILIA ([facility]) Outpatient Attender: Michael Glover/Riri/Angel adame/Avery 10/15/2020 01:00:00 PM EDT EVELYNE ([facility], ) Mar Smith, STORE MANAGEMENT TRAINEE: [address], [place] [address], Ph. Attender: Mar Smith [facility] - [facility] 10/15/2020 12:00:00 AM EDT VANCE FLORES ([facility]) Mar Smith, STORE MANAGEMENT TRAINEE: [address], [address], [place] [address], Ph. Attender: Mar Smith [facility] - [facility] 10/15/2020 12:00:00 AM EDT VANCE FLORES ([facility]) Mar Smith, STORE MANAGEMENT TRAINEE: [address], [place] [address], Ph. Attender: Mar Smith [facility] - [facility] 10/15/2020 12:00:00 AM EDT ATHE MARK ([facility]) Outpatient Attender: Andrea Sterling/Riri/Mil/Joe ndprabha 10/08/2020 09:30:00 AM EDT MEDENT ([facility]) Unknown [address] [facility], [place] [address] 10/07/2020 12:00:00 AM EDT eCW1 [facility] Outpatient [address] [facility] Y [address] 09/22/2020 12:00:00 AM EDT eCW1 ([facility]) Unknown [address] [facility] Y [address] 09/04/2020 12:00:00 AM EDT eCW1 ([facility]) Unknown [address] [facility] Y [address] 08/28/2020 12:00:00 AM EDT eCW1 ([facility]) Unknown [address] [facility] [place] [address] 08/27/2020 12:00:00 AM EDT eCW1 ([facility]) Unknown [address] [facility] [place] [address] 08/25/2020 12:00:00 AM EDT eCW1 ([facility]) Unknown [address] [facility] Y [address] 08/14/2020 12:00:00 AM EDT eCW1 ([facility]) Outpatient Attender: Amira Garg 08/11/2020 11:00:00 PM E DT [facility] Outpatient Attender: Amira Harrell/ [facility] 04:00:00 PM EDT MEDENT ([facility] [place]) Oleg Ling MD: [address] [address], [place] [address], Ph. [phone] Attender: Oleg iLng MD [place] - [facility] 08/11/2020 12:00:00 AM EDT MARILIA ([facility]) Oleg Ling MD: [address], [address], [place] [address], Ph. [phone] Attender: Oleg Ling MD [place] [facility] 08/11/2020 12:00:00 AM EDT MARILIA ([facility]) Oleg Ling MD: [address], [address], [place] [address], Ph. [phone] Attender: Oleg Ling [place] [facility] 08/11/2020 12:00:00 AM EDT MARILIA ([facility]) Oleg Ling MD: [address], [address], [place] [address], Ph. [phone] Attender: Oleg Ling [place] [facility] 08/11/2020 12:00:00 AM EDT MARILIA ([facility]) Mar Smith, STORE MANAGEMENT TRAINEE: [address], [place] [address], Ph. Attender: Mar Smith [facility] - [facility] 08/06/2020 12:00:00 AM EDT ATHJaime NA ([facility]) Mar Smith, STORE MANAGEMENT TRAINEE: [address], [address], [place] [address], Ph. Attender: Mar Smith [facility] - [facility] 08/06/2020 12:00:00 AM EDT ATHE NA ([facility]) Mar Smith, STORE MANAGEMENT TRAINEE: [address], [place] [address], Ph. Attender: Mar Smith [facility] - [facility] - [facility] Office 08/06/2020 12:00:00 AM EDT ATHE NA ([facility]) Mar Smith, STORE MANAGEMENT TRAINEE: [address], [place] [address], Ph. Attender: Mar Smith [facility] - [facility] 08/06/2020 12:00:00 AM EDT ATHE NA ([facility]) Mar Smith, STORE MANAGEMENT TRAINEE: [address], [place] [address], Ph. Attender: Mar Smith [facility] - [facility] 08/06/2020 12:00:00 AM EDT ATHJaime NA ([facility]) Office Visit Attender: Bren RODRIGES Physical Therapy 10:30:00 AM EDT MEDENT ([facility] ) Outpatient Attender: Monica Bal MD 07/14/2020 11:00:00 PM EDT [facility] Out[facility] Attender: Monica Bal MD [place]/ Steffen torres 07/14/2020 03:30:00 PM EDT MEDENT ([facility]) Unknown [address] [facility], [place] [address] 07/08/2020 12:00:00 AM EDT eCW1 ([facility]) Unknown [address] [facility], [place] [address] 07/07/2020 12:00:00 AM EDT eCW1 ([facility]) Outpatient [address] [facility] Y [address] 07/04/2020 12:00:00 AM EDT eCW1 ([facility]) Unknown [address] [facility], [place] [address] 07/04/2020 12:00:00 AM EDT eCW1 ([facility]) Unknown [address] [facility] [address] 07/04/2020 12:00:00 AM EDT eCW1 ([facility]) Unknown [address] [facility] [address] 07/04/2020 12:00:00 AM EDT eCW1 ([facility]) Unknown [address] [facility] [address] 07/03/2020 12:00:00 AM EDT eCW1 ([facility]) Unknown [address] [facility] [address] 06/30/2020 12:00:00 AM EDT eCW1 ([facility]) Unknown [address] [facility] [address] 06/25/2020 12:00:00 AM EDT eCW1 ([facility]) Unknown [address] [facility] [address] 06/19/2020 12:00:00 AM EDT eCW1 ([facility]) Unknown [address] [facility] [place] [address] 06/19/2020 12:00:00 AM EDT eCW1 ([facility]) Unknown [address] [facility] [address] 06/17/2020 12:00:00 AM EDT eCW1 ([facility]) Unknown [address] [facility] [place] [address] 06/13/2020 12:00:00 AM EDT eCW1 ([facility]) Unknown [address] [facility] [place] [address] 06/09/2020 12:00:00 AM EDT eCW1 ([facility]) Unknown [address] [facility] [address] 06/04/2020 12:00:00 AM EDT eCW1 ([facility]) Unknown [address] [facility] [place] [address] 05/26/2020 12:00:00 AM EDT eCW1 ([facility]) Outpatient [address] [facility] [place] [address] 05/26/2020 12:00:00 AM EDT eCW1 ([facility]) Unknown [address] [facility] [place] [address] 05/20/2020 12:00:00 AM EDT eCW1 ([facility]) Unknown [address] [facility] [place] [address] 05/15/2020 12:00:00 AM EST eCW1 ([facility]) Outpatient [address] [facility] [place] [address] 05/12/2020 12:00:00 AM EST eCW1 ([facility]) Mar Smith, STORE MANAGEMENT TRAINEE: [address], [place] [address], Ph. Attender: Mar Smith [facility] 04/15/2020 12:00:00 AM EST ATHE NA ([facility]) Mar Smith, STORE MANAGEMENT TRAINEE: [address], [place] [address], Ph. Attender: Mar Smith [facility] 04/15/2020 12:00:00 AM EST ATHE NA ([facility]) Mar Smith, STORE MANAGEMENT TRAINEE: [address], [place] [address], Ph. Attender: Mar Smith [facility] - [facility] 04/15/2020 12:00:00 AM EST ATHE NA ([facility]) Mar Smith, STORE MANAGEMENT TRAINEE: [address], [place] [address], Ph. Attender: Mar Smith [facility] - [facility] 04/15/2020 12:00:00 AM EST ATHE NA ([facility]) Mar Smith, STORE MANAGEMENT TRAINEE: [address], [place] [address], Ph. Attender: Mar Smith [facility] - [facility] 04/15/2020 12:00:00 AM EST ATHE NA ([facility]) Mar Smith, STORE MANAGEMENT TRAINEE: [address], [facility] [[email or web address] [place] [address], Ph. Attender: Mar Smith [facility] 04/15/2020 12:00:00 AM EST ATHE NA ([facility]) Outpatient Attender: Monica Bal MD 04/07/2020 09:05 :00 PM EST [facility]patient Attender: Monica Bal MD [place]/ Steffen torres 04/07/2020 12:15:00 PM EST MEDENT ([facility] [place]) Oleg Ling MD: [address], [facility] [[email or web address] [place] [address], Ph. Attender: Oleg Ling MD [facility] 03/31/2020 12:00:00 AM EST MARILIA ([facility]) Oleg Ling MD: [address], [place] [address], Ph. Attender: Oleg Ling MD [facility] 03/31/2020 12:00:00 AM EST MARILIA ([facility]) Oleg Ling MD: [address], [address] [place], [place] [address], Ph. Attender: Oleg Ling MD [place] - [facility] 03/31/2020 12:00:00 AM EST MARILIA ([facility]) Oleg Ling MD: [address], [address], [place] [address], Ph. Attender: Oleg Ling MD [place] [facility] 03/31/2020 12:00:00 AM EST MARILIA ([facility]) Oleg Ling MD: [address], [place] [address], Ph. Attender: Oleg CHAIREZ - [facility] 03/31/2020 12:00:00 AM EST MARILIA ([facility]) Oleg Ling MD: [address], [place] [address], Ph. Attender: Oleg Ling MD [place] [facility] 03/31/2020 12:00:00 AM EST MARILIA ([facility]) Oleg Ling MD: [address], [place] [address], Ph. Attender: Oleg Ling MD [place] [facility] 03/31/2020 12:00:00 AM EST MARILIA ([facility]) OFFICE OUTPATIENT VISIT 15 MINUTES Attender: Bren RODRIGES Physical Therapy 03/27/2020 12:45:00 PM EST MEDENT ([facility]) Oleg Ling MD: [address], [place] [address], Ph. [phone] Attender: Oleg Ling MD [place] - [facility] 03/26/2020 12:00:00 AM EST MARILIA ([facility]) Oleg Ling MD: [address], [place] [address], Ph. [phone] Attender: Oleg Ling MD [place] [facility] 03/26/2020 12:00:00 AM EST MARILIA ([facility]) Oleg Ling MD: [address], [address], [place] [address], Ph. [phone] Attender: Oleg Ling MD [place] [facility] 03/26/2020 12:00:00 AM EST MARILIA ([facility]) Oleg Ling MD: [address], [address], [place] [address], Ph. [phone] Attender: Oleg Ling MD [place] [facility] 03/26/2020 12:00:00 AM EST MARILIA ([facility]) Oleg Ling MD: [address], [address], [place] [address], Ph. [phone] Attender: Oleg Ling MD [place] [facility] 03/26/2020 12:00:00 AM EST MARILIA ([facility]) Oleg Ling MD: [address], [address], [place] [address], Ph. [phone] Attender: Oleg Ling MD [place] - [facility] 03/26/2020 12:00:00 AM EST MARILIA ([facility]) Oleg Ling MD: [address], [address], [place] [address], Ph. [phone] Attender: Oleg Ling MD [place] [facility] 03/26/2020 12:00:00 AM EST MARILIA ([facility]) Oleg Ling MD: [address], [place] [address], Ph. [phone] Attender: Oleg Ling MD [place] - [facility] 03/26/2020 12:00:00 AM EST MARILIA ([facility]) Mar Smith, STORE MANAGEMENT TRAINEE: [address], [place] [address], Ph. Attender: Mar Smith [facility] - [facility] 03/18/2020 12:00:00 AM EST ATHE NA ([facility]) Mar Smith, STORE MANAGEMENT TRAINEE: [address], [facility] [[email or web address] [place] [address], Ph. Attender: Mar Smith [facility] - [facility] 03/18/2020 12:00:00 AM EST ATHE NA ([facility]) Mar Smith, STORE MANAGEMENT TRAINEE: [address], [place] [address], Ph. Attender: Mar Smith [facility] - [facility] 03/18/2020 12:00:00 AM EST ATHE NA ([facility]) Mar Smith, STORE MANAGEMENT TRAINEE: [address], [place] [address], Ph. Attender: Mar Smith [facility] - [facility] 03/18/2020 12:00:00 AM EST ATHE NA ([facility]) Mar Rodriguez Sarah, STORE MANAGEMENT TRAINEE: [address], [place] [address], Ph. Attender: Mar Smith [facility] - [facility] 03/18/2020 12:00:00 AM EST ATHE NA ([facility]) Mar Smith, STORE MANAGEMENT TRAINEE: [address], [place] [address], Ph. Attender: Mar Smith [facility] - [facility] 03/18/2020 12:00:00 AM EST ATHE NA ([facility]) Mar Smith, STORE MANAGEMENT TRAINEE: [address], [place] [address], Ph. Attender: Mar Smith [facility] - [facility] 03/18/2020 12:00:00 AM EST ATHE NA ([facility]) Mar Smith, STORE MANAGEMENT TRAINEE: [address], [place] [address], Ph. Attender: Mar Smith [facility] - [facility] 03/18/2020 12:00:00 AM EST ATHE NA ([facility]) Mar Smith, STORE MANAGEMENT TRAINEE: [address], [place] [address], Ph. Attender: Mar Smith [facility] - [facility] 03/18/2020 12:00:00 AM EST ATHE NA ([facility]) Unknown [address] [facility] [place] [address] 03/14/2020 12:00:00 AM EST eCW1 ([facility]) Unknown [address] [facility] [address] 03/13/2020 12:00:00 AM EST eCW1 ([facility]) Outpatient Attender: Andrea Sterling/Riri/Mil/Joe ndl 03/12/2020 09:00:00 AM EST MEDENT ([facility], ) Mar Smith, STORE MANAGEMENT TRAINEE: [address], [place] [address], Ph. Attender: Mar [facility] HEALTH [facility] 02/14/2020 12:00:00 AM EST ATHE NA ([facility]) Mar Smith, STORE MANAGEMENT TRAINEE: [address], [place] [address], Ph. Attender: Mar Smith [facility] 02/14/2020 12:00:00 AM EST ATHE NA ([facility]) Mar Smith, STORE MANAGEMENT TRAINEE: [address], [place] [address], Ph. Attender: Mar Smith [facility] 02/14/2020 12:00:00 AM EST ATHE NA ([facility]) Mar Smith, STORE MANAGEMENT TRAINEE: [address], [place] [address], Ph. Attender: Mar Smith [facility] 02/14/2020 12:00:00 AM EST ATHE NA ([facility]) Mar Smith, STORE MANAGEMENT TRAINEE: [address], [place] [address], Ph. Attender: Mar Smith [facility] 02/14/2020 12:00:00 AM EST ATHE NA ([facility]) Mar Smith, STORE MANAGEMENT TRAINEE: [address], [place] [address], Ph. Attender: Mar Smith [facility] - [facility] 02/14/2020 12:00:00 AM EST ATHE NA ([facility]) Mar Smith, STORE MANAGEMENT TRAINEE: [address], [place] [address], Ph. Attender: Mar Smith [facility] - [facility] 02/14/2020 12:00:00 AM EST ATHE NA ([facility]) Mar Smith, STORE MANAGEMENT TRAINEE: [address], [place] [address], Ph. Attender: Mar Smith [facility] - [facility] 02/14/2020 12:00:00 AM EST ATHE NA ([facility]) Mar Smith, STORE MANAGEMENT TRAINEE: [address], [place] [address], Ph. Attender: Mar Smith [facility] - [facility] 02/14/2020 12:00:00 AM EST ATHE NA ([facility]) Mar Smith, STORE MANAGEMENT TRAINEE: [address], [place] [address], Ph. Attender: Mar Smith [facility] - [facility] 02/14/2020 12:00:00 AM EST ATHE NA ([facility]) Unknown [address] [facility] [address] 02/13/2020 12:00:00 AM EST eCW1 ([facility]) Unknown [address] [facility] [address] 02/06/2020 12:00:00 AM EST eCW1 ([facility]) Outpatient Attender: Amira Garg 01/10/2020 11:00:00 PM E [facility] Outpatient Attender: Amira Harrell/ [facility] 12:30:00 PM DANIELLE STUBBS ([facility]) Preadmit Attender: Cesario Gao MD 01/03/2020 12:00:00 AM EDT S/P R FEMUR FX [facility] S/P R FEMUR FX Immunizations Vaccine Date Status Description Data Source(s) COVID-19 VACCINE Moderna 11/05/2020 12:00:00 AM EDT completed [facility] Vaccine Series Complete: YESThis Data wa s Submitted to [facility]. COVID-19 VACCINE Moderna 10/01/2020 12:00:00 AM EDT completed [facility] Vaccine Series Complete: NOThis Data was Submitted to [facility]. Medications Medication Brand Name Start Date Product Form Dose Route Admi nistrative Instructions Pharmacy Instructions Status Indications Reaction Description Data Source(s) Ondansetron 4 MG Disintegrating Oral Tablet Ondansetron 4 MG 02/03/2021 12:00:00 AM EST 1.0 {tablet_on_the_tongue_and_allow_to_dissolve} active Ondansetron 4 MG eCW1 ([facility]) Ondansetron 4 MG Disintegrating Oral Tablet Ondansetron 4 MG 02/03/2021 12:00:00 AM EST 1.0 {tablet_on_the_tongue_and_allow_to_dissolve} active Ondansetron 4 MG eCW1 ([facility]) celecoxib 200 MG Oral Capsule [Celebrex] CeleBREX 200 MG Dee eBREX 200 MG 01/16/2021 12:00:00 AM EST 1.0 {capsule_with_food} a ctive eCW1 ([facility]) celecoxib 200 MG Oral Capsule [Celebrex] CeleBREX 200 MG Dee eBREX 200 MG 01/16/2021 12:00:00 AM EST 1.0 {capsule_with_food} active CeleBREX 200 MG eCW1 ([facility]) celecoxib 200 MG Oral Capsule [Celebrex] CeleBREX 200 MG Dee eBREX 200 MG 01/16/2021 12:00:00 AM EST 1.0 {capsule_with_food} active CeleBREX 200 MG eCW1 ([facility]) NITROFURANTOIN, MACROCRYSTALS 25 MG / Ni trofurantoin, Monohydrate 75 MG Oral Capsule [Macrobid] Macrobid 100 MG Macrobid 100 MG 11/17/2020 12:00:00 AM EDT active Macrobid 100 MG eCW1 ([facility]) NITROFURANTOIN, MACROCRYSTALS 25 MG / Ni trofurantoin, Monohydrate 75 MG Oral Capsule [Macrobid] Macrobid 100 MG Macrobid 100 MG 11/17/2020 12:00:00 AM EDT active Macrobid 100 MG eCW1 ([facility]) NITROFURANTOIN, MACROCRYSTALS 25 MG / Ni trofurantoin, Monohydrate 75 MG Oral Capsule [Macrobid] Macrobid 100 MG Macrobid 100 MG 11/17/2020 12:00:00 AM EDT active Macrobid 100 MG eCW1 ([facility]) NITROFURANTOIN, MACROCRYSTALS 25 MG / Ni trofurantoin, Monohydrate 75 MG Oral Capsule [Macrobid] Macrobid 100 MG Macrobid 100 MG 11/17/2020 12:00:00 AM EDT active Macrobid 100 MG eCW1 ([facility]) NITROFURANTOIN, MACROCRYSTALS 25 MG / Ni trofurantoin, Monohydrate 75 MG Oral Capsule [Macrobid] Macrobid 100 MG Macrobid 100 MG 11/17/2020 12:00:00 AM EDT active Macrobid 100 MG eCW1 ([facility]) NITROFURANTOIN, MACROCRYSTALS 25 MG / Ni trofurantoin, Monohydrate 75 MG Oral Capsule [Macrobid] Macrobid 100 MG Macrobid 100 MG 11/17/2020 12:00:00 AM EDT active Macrobid 100 MG eCW1 ([facility]) NITROFURANTOIN, MACROCRYSTALS 25 MG / Ni trofurantoin, Monohydrate 75 MG Oral Capsule [Macrobid] Macrobid 100 MG Macrobid 100 MG 11/17/2020 12:00:00 AM EDT active Macrobid 100 MG eCW1 ([facility]) NITROFURANTOIN, MACROCRYSTALS 25 MG / Ni trofurantoin, Monohydrate 75 MG Oral Capsule [Macrobid] Macrobid 100 MG Macrobid 100 MG 11/17/2020 12:00:00 AM EDT active Macrobid 100 MG eCW1 ([facility]) NITROFURANTOIN, MACROCRYSTALS 25 MG / Ni trofurantoin, Monohydrate 75 MG Oral Capsule [Macrobid] Macrobid 100 MG Macrobid 100 MG 11/17/2020 12:00:00 AM EDT active Macrobid 100 MG eCW1 ([facility]) NITROFURANTOIN, MACROCRYSTALS 25 MG / Ni trofurantoin, Monohydrate 75 MG Oral Capsule [Macrobid] Macrobid 100 MG Macrobid 100 MG 11/17/2020 12:00:00 AM EDT active Macrobid 100 MG eCW1 ([facility]) NITROFURANTOIN, MACROCRYSTALS 25 MG / Ni trofurantoin, Monohydrate 75 MG Oral Capsule [Macrobid] Macrobid 100 MG Macrobid 100 MG 11/17/2020 12:00:00 AM EDT active Macrobid 100 MG eCW1 ([facility]) NITROFURANTOIN, MACROCRYSTALS 25 MG / Ni trofurantoin, Monohydrate 75 MG Oral Capsule [Macrobid] Macrobid 100 MG Macrobid 100 MG 11/17/2020 12:00:00 AM EDT active Macrobid 100 MG eCW1 ([facility]) NITROFURANTOIN, MACROCRYSTALS 25 MG / Ni trofurantoin, Monohydrate 75 MG Oral Capsule [Macrobid] Macrobid 100 MG Macrobid 100 MG 11/17/2020 12:00:00 AM EDT active Macrobid 100 MG eCW1 ([facility]) NITROFURANTOIN, MACROCRYSTALS 25 MG / Ni trofurantoin, Monohydrate 75 MG Oral Capsule [Macrobid] Macrobid 100 MG Macrobid 100 MG 11/17/2020 12:00:00 AM EDT active Macrobid 100 MG eCW1 ([facility]) NITROFURANTOIN, MACROCRYSTALS 25 MG / Ni trofurantoin, Monohydrate 75 MG Oral Capsule [Macrobid] Macrobid 100 MG Macrobid 100 MG 11/17/2020 12:00:00 AM EDT active Macrobid 100 MG eCW1 ([facility]) NITROFURANTOIN, MACROCRYSTALS 25 MG / Ni trofurantoin, Monohydrate 75 MG Oral Capsule [Macrobid] Macrobid 100 MG Macrobid 100 MG 11/17/2020 12:00:00 AM EDT active Macrobid 100 MG eCW1 ([facility]) NITROFURANTOIN, MACROCRYSTALS 25 MG / Ni trofurantoin, Monohydrate 75 MG Oral Capsule [Macrobid] Macrobid 100 MG Macrobid 100 MG 11/17/2020 12:00:00 AM EDT active eCW1 ([facility]) NITROFURANTOIN, MACROCRYSTALS 25 MG / Ni trofurantoin, Monohydrate 75 MG Oral Capsule [Macrobid] Macrobid 100 MG Macrobid 100 MG 11/17/2020 12:00:00 AM EDT active Macrobid 100 MG eCW1 ([facility]) Mupirocin 0.02 MG/MG Topical Ointment Mupirocin 2 % Mupiroci n 2 % 11/14/2020 12:00:00 AM EDT active Mupiroci n 2 % eCW1 ([facility]) Mupirocin 0.02 MG/MG Topical Ointment Mupirocin 2 % Mupiroci n 2 % 11/14/2020 12:00:00 AM EDT active Mupiroci n 2 % eCW1 ([facility]) Mupirocin 0.02 MG/MG Topical Ointment Mupirocin 2 % Mupiroci n 2 % 11/14/2020 12:00:00 AM EDT active Mupiroci n 2 % eCW1 ([facility]) Mupirocin 0.02 MG/MG Topical Ointment Mupirocin 2 % Mupiroci n 2 % 11/14/2020 12:00:00 AM EDT active Mupiroci n 2 % eCW1 ([facility]) ferric carboxymaltose 50 MG/ML Injectabl e Solution [Injectafer] Injectafer 750 MG/15ML Injectafer 750 MG/15ML 11/14/2020 12:00:00 AM EDT active Injectafer 750 MG/15ML eCW1 ([facility]) Mupirocin 0.02 MG/MG Topical Ointment Mupirocin 2 % Mupiroci n 2 % 11/14/2020 12:00:00 AM EDT active Mupiroci n 2 % eCW1 ([facility]) ferric carboxymaltose 50 MG/ML Injectabl e Solution [Injectafer] Injectafer 750 MG/15ML Injectafer 750 MG/15ML 11/14/2020 12:00:00 AM EDT active Injectafer 750 MG/15ML eCW1 ([facility]) ferric carboxymaltose 50 MG/ML Injectabl e Solution [Injectafer] Injectafer 750 MG/15ML Injectafer 750 MG/15ML 11/14/2020 12:00:00 AM EDT active Injectafer 750 MG/15ML eCW1 ([facility]) ferric carboxymaltose 50 MG/ML Injectabl e Solution [Injectafer] Injectafer 750 MG/15ML Injectafer 750 MG/15ML 11/14/2020 12:00:00 AM EDT active Injectafer 750 MG/15ML eCW1 ([facility]) Mupirocin 0.02 MG/MG Topical Ointment Mupirocin 2 % Mupiroci n 2 % 11/14/2020 12:00:00 AM EDT active Mupiroci n 2 % eCW1 ([facility]) Mupirocin 0.02 MG/MG Topical Ointment Mupirocin 2 % Mupiroci n 2 % 11/14/2020 12:00:00 AM EDT active Mupiroci n 2 % eCW1 ([facility]) ferric carboxymaltose 50 MG/ML Injectabl e Solution [Injectafer] Injectafer 750 MG/15ML Injectafer 750 MG/15ML 11/14/2020 12:00:00 AM EDT active Injectafer 750 MG/15ML eCW1 ([facility]) ferric carboxymaltose 50 MG/ML Injectabl e Solution [Injectafer] Injectafer 750 MG/15ML Injectafer 750 MG/15ML 11/14/2020 12:00:00 AM EDT active Injectafer 750 MG/15ML eCW1 ([facility]) ferric carboxymaltose 50 MG/ML Injectabl e Solution [Injectafer] Injectafer 750 MG/15ML Injectafer 750 MG/15ML 11/14/2020 12:00:00 AM EDT active Injectafer 750 MG/15ML eCW1 ([facility]) ferric carboxymaltose 50 MG/ML Injectabl e Solution [Injectafer] Injectafer 750 MG/15ML Injectafer 750 MG/15ML 11/14/2020 12:00:00 AM EDT active Injectafer 750 MG/15ML eCW1 ([facility]) Mupirocin 0.02 MG/MG Topical Ointment Mupirocin 2 % Mupiroci n 2 % 11/14/2020 12:00:00 AM EDT active Mupiroci n 2 % eCW1 ([facility]) Mupirocin 0.02 MG/MG Topical Ointment Mupirocin 2 % Mupiroci n 2 % 11/14/2020 12:00:00 AM EDT active Mupiroci n 2 % eCW1 ([facility]) ferric carboxymaltose 50 MG/ML Injectabl e Solution [Injectafer] Injectafer 750 MG/15ML Injectafer 750 MG/15ML 11/14/2020 12:00:00 AM EDT active Injectafer 750 MG/15ML eCW1 ([facility]) ferric carboxymaltose 50 MG/ML Injectabl e Solution [Injectafer] Injectafer 750 MG/15ML Injectafer 750 MG/15ML 11/14/2020 12:00:00 AM EDT active Injectafer 750 MG/15ML eCW1 ([facility]) Mupirocin 0.02 MG/MG Topical Ointment Mupirocin 2 % Mupiroci n 2 % 11/14/2020 12:00:00 AM EDT active Mupiroci n 2 % eCW1 ([facility]) ferric carboxymaltose 50 MG/ML Injectabl e Solution [Injectafer] Injectafer 750 MG/15ML Injectafer 750 MG/15ML 11/14/2020 12:00:00 AM EDT active Injectafer 750 MG/15ML eCW1 ([facility]) Mupirocin 0.02 MG/MG Topical Ointment Mupirocin 2 % Mupiroci n 2 % 11/14/2020 12:00:00 AM EDT active Mupiroci n 2 % eCW1 ([facility]) ferric carboxymaltose 50 MG/ML Injectabl e Solution [Injectafer] Injectafer 750 MG/15ML Injectafer 750 MG/15ML 11/14/2020 12:00:00 AM EDT active Injectafer 750 MG/15ML eCW1 ([facility]) Mupirocin 0.02 MG/MG Topical Ointment Mupirocin 2 % Mupiroci n 2 % 11/14/2020 12:00:00 AM EDT active Mupiroci n 2 % eCW1 ([facility]) Mupirocin 0.02 MG/MG Topical Ointment Mupirocin 2 % Mupiroci n 2 % 11/14/2020 12:00:00 AM EDT active Mupiroci n 2 % eCW1 ([facility]) ferric carboxymaltose 50 MG/ML Injectabl e Solution [Injectafer] Injectafer 750 MG/15ML Injectafer 750 MG/15ML 11/14/2020 12:00:00 AM EDT active Injectafer 750 MG/15ML eCW1 ([facility]) ferric carboxymaltose 50 MG/ML Injectabl e Solution [Injectafer] Injectafer 750 MG/15ML Injectafer 750 MG/15ML 11/14/2020 12:00:00 AM EDT active Injectafer 750 MG/15ML eCW1 ([facility]) ferric carboxymaltose 50 MG/ML Injectabl e Solution [Injectafer] Injectafer 750 MG/15ML Injectafer 750 MG/15ML 11/14/2020 12:00:00 AM EDT active Injectafer 750 MG/15ML eCW1 ([facility]) Mupirocin 0.02 MG/MG Topical Ointment Mupirocin 2 % Mupiroci n 2 % 11/14/2020 12:00:00 AM EDT active Mupiroci n 2 % eCW1 ([facility]) Mupirocin 0.02 MG/MG Topical Ointment Mupirocin 2 % Mupiroci n 2 % 11/14/2020 12:00:00 AM EDT active e CW1 ([facility]) Mupirocin 0.02 MG/MG Topical Ointment Mupirocin 2 % Mupiroci n 2 % 11/14/2020 12:00:00 AM EDT active Mupiroci n 2 % eCW1 ([facility]) ferric carboxymaltose 50 MG/ML Injectabl e Solution [Injectafer] Injectafer 750 MG/15ML Injectafer 750 MG/15ML 11/14/2020 12:00:00 AM EDT active Injectafer 750 MG/15ML eCW1 ([facility]) ferric carboxymaltose 50 MG/ML Injectabl e Solution [Injectafer] Injectafer 750 MG/15ML Injectafer 750 MG/15ML 11/14/2020 12:00:00 AM EDT active eCW1 ([facility]) Mupirocin 0.02 MG/MG Topical Ointment Mupirocin 2 % Mupiroci n 2 % 11/14/2020 12:00:00 AM EDT active Mupiroci n 2 % eCW1 ([facility]) Mupirocin 0.02 MG/MG Topical Ointment Mupirocin 2 % Mupiroci n 2 % 11/14/2020 12:00:00 AM EDT active Mupiroci n 2 % eCW1 ([facility]) ferric carboxymaltose 50 MG/ML Injectabl e Solution [Injectafer] Injectafer 750 MG/15ML Injectafer 750 MG/15ML 11/14/2020 12:00:00 AM EDT active Injectafer 750 MG/15ML eCW1 ([facility]) Mupirocin 0.02 MG/MG Topical Ointment Mupirocin 2 % Mupiroci n 2 % 11/14/2020 12:00:00 AM EDT active Mupiroci n 2 % eCW1 ([facility]) ferric carboxymaltose 50 MG/ML Injectabl e Solution [Injectafer] Injectafer 750 MG/15ML Injectafer 750 MG/15ML 11/14/2020 12:00:00 AM EDT active Injectafer 750 MG/15ML eCW1 ([facility]) magnesium citrate 58.2 MG/ML Oral Solution Magnesium Citrate 11/11/2020 12:00:00 AM EDT active MEDENT ([facility], ) POLYETHYLENE GLYCOL 3350 142 MG/ML Oral Solution [Miralax] M iralax 11/11/2020 12:00:00 AM EDT active M EDENT ([facility], ) Glucometer UNK 11/03/2020 12:00:00 AM EDT active Glucometer eCW1 ([facility]) Blood Glucose Test - Blood Glucose Test - 11/03/2020 12:00:00 AM EDT active Blood Glucose Test - eCW1 ([facility]) Blood Glucose Test - Blood Glucose Test - 11/03/2020 12:00:00 AM EDT active Blood Glucose Test - eCW1 ([facility]) Glucometer UNK 11/03/2020 12:00:00 AM EDT active Glucometer eCW1 ([facility]) Blood Glucose Test - Blood Glucose Test - 11/03/2020 12:00:00 AM EDT active Blood Glucose Test - eCW1 ([facility]) Blood Glucose Test - Blood Glucose Test - 11/03/2020 12:00:00 AM EDT active Blood Glucose Test - eCW1 ([facility]) Blood Glucose Test - Blood Glucose Test - 11/03/2020 12:00:00 AM EDT active Blood Glucose Test - eCW1 ([facility]) Lancets - Lancets - 11/03/2020 12:00:00 AM EDT act андрей Lancets - eCW1 ([facility]) Glucometer UNK 11/03/2020 12:00:00 AM EDT active Glucometer eCW1 ([facility]) Glucometer UNK 11/03/2020 12:00:00 AM EDT active Glucometer eCW1 ([facility]) Glucometer UNK 11/03/2020 12:00:00 AM EDT active Glucometer eCW1 ([facility]) Blood Glucose Test - Blood Glucose Test - 11/03/2020 12:00:00 AM EDT active Blood Glucose Test - eCW1 ([facility]) Glucometer UNK 11/03/2020 12:00:00 AM EDT active Glucometer eCW1 ([facility]) Blood Glucose Test - Blood Glucose Test - 11/03/2020 12:00:00 AM EDT active Blood Glucose Test - eCW1 ([facility]) Blood Glucose Test - Blood Glucose Test - 11/03/2020 12:00:00 AM EDT active Blood Glucose Test - eCW1 ([facility]) Glucometer UNK 11/03/2020 12:00:00 AM EDT active Glucometer eCW1 ([facility]) Lancets - Lancets - 11/03/2020 12:00:00 AM EDT act андрей Lancets - eCW1 ([facility]) Blood Glucose Test - Blood Glucose Test - 11/03/2020 12:00:00 AM EDT active Blood Glucose Test - eCW1 ([facility]) Blood Glucose Test - Blood Glucose Test - 11/03/2020 12:00:00 AM EDT active Blood Glucose Test - eCW1 ([facility]) Lancets - Lancets - 11/03/2020 12:00:00 AM EDT act андрей Lancets - eCW1 ([facility]) Blood Glucose Test - Blood Glucose Test - 11/03/2020 12:00:00 AM EDT active Blood Glucose Test - eCW1 ([facility]) Lancets - Lancets - 11/03/2020 12:00:00 AM EDT act андрей Lancets - eCW1 ([facility]) Lancets - Lancets - 11/03/2020 12:00:00 AM EDT act андрей Lancets - eCW1 ([facility]) Lancets - Lancets - 11/03/2020 12:00:00 AM EDT act андрей Lancets - eCW1 ([facility]) Lancets - Lancets - 11/03/2020 12:00:00 AM EDT act андрей eCW1 ([facility]) Glucometer UNK 11/03/2020 12:00:00 AM EDT active Glucometer eCW1 ([facility]) Lancets - Lancets - 11/03/2020 12:00:00 AM EDT act андрей Lancets - eCW1 ([facility]) Blood Glucose Test - Blood Glucose Test - 11/03/2020 12:00:00 AM EDT active Blood Glucose Test - eCW1 ([facility]) Glucometer UNK 11/03/2020 12:00:00 AM EDT active Glucometer eCW1 ([facility]) Glucometer UNK 11/03/2020 12:00:00 AM EDT active Glucometer eCW1 ([facility]) Lancets - Lancets - 11/03/2020 12:00:00 AM EDT act андрей Lancets - eCW1 ([facility]) Blood Glucose Test - Blood Glucose Test - 11/03/2020 12:00:00 AM EDT active Blood Glucose Test - eCW1 ([facility]) Glucometer UNK 11/03/2020 12:00:00 AM EDT active Glucometer eCW1 ([facility]) Blood Glucose Test - Blood Glucose Test - 11/03/2020 12:00:00 AM EDT active Blood Glucose Test - eCW1 ([facility]) Lancets - Lancets - 11/03/2020 12:00:00 AM EDT act андрей Lancets - eCW1 ([facility]) Glucometer UNK 11/03/2020 12:00:00 AM EDT active Glucometer eCW1 ([facility]) Blood Glucose Test - Blood Glucose Test - 11/03/2020 12:00:00 AM EDT active Blood Glucose Test - eCW1 ([facility]) Lancets - Lancets - 11/03/2020 12:00:00 AM EDT act андрей Lancets - eCW1 ([facility]) Blood Glucose Test - Blood Glucose Test - 11/03/2020 12:00:00 AM EDT active Blood Glucose Test - eCW1 ([facility]) Glucometer UNK 11/03/2020 12:00:00 AM EDT active Glucometer eCW1 ([facility]) Lancets - Lancets - 11/03/2020 12:00:00 AM EDT act андрей Lancets - eCW1 ([facility]) Lancets - Lancets - 11/03/2020 12:00:00 AM EDT act андрей Lancets - eCW1 ([facility]) Blood Glucose Test - Blood Glucose Test - 11/03/2020 12:00:00 AM EDT active Blood Glucose Test - eCW1 ([facility]) Glucometer UNK 11/03/2020 12:00:00 AM EDT active Glucometer eCW1 ([facility]) Blood Glucose Test - Blood Glucose Test - 11/03/2020 12:00:00 AM EDT active Blood Glucose Test - eCW1 ([facility]) Glucometer UNK 11/03/2020 12:00:00 AM EDT active Glucometer eCW1 ([facility]) Blood Glucose Test - Blood Glucose Test - 11/03/2020 12:00:00 AM EDT active Blood Glucose Test - eCW1 ([facility]) Lancets - Lancets - 11/03/2020 12:00:00 AM EDT act андрей Lancets - eCW1 ([facility]) Blood Glucose Test - Blood Glucose Test - 11/03/2020 12:00:00 AM EDT active Blood Glucose Test - eCW1 ([facility]) Lancets - Lancets - 11/03/2020 12:00:00 AM EDT act андрей Lancets - eCW1 ([facility]) Lancets - Lancets - 11/03/2020 12:00:00 AM EDT act андрей Lancets - eCW1 ([facility]) Lancets - Lancets - 11/03/2020 12:00:00 AM EDT act андрей Lancets - eCW1 ([facility]) Glucometer UNK 11/03/2020 12:00:00 AM EDT active Glucometer eCW1 ([facility]) Glucometer UNK 11/03/2020 12:00:00 AM EDT active Glucometer eCW1 ([facility]) Lancets - Lancets - 11/03/2020 12:00:00 AM EDT act андрей Lancets - eCW1 ([facility]) Lancets - Lancets - 11/03/2020 12:00:00 AM EDT act андрей Lancets - eCW1 ([facility]) Lancets - Lancets - 11/03/2020 12:00:00 AM EDT act андрей Lancets - eCW1 ([facility]) Glucometer UNK 11/03/2020 12:00:00 AM EDT active Glucometer eCW1 ([facility]) Blood Glucose Test - Blood Glucose Test - 11/03/2020 12:00:00 AM EDT active Blood Glucose Test - eCW1 ([facility]) Blood Glucose Test - Blood Glucose Test - 11/03/2020 12:00:00 AM EDT active Blood Glucose Test - eCW1 ([facility]) Glucometer UNK 11/03/2020 12:00:00 AM EDT active Glucometer eCW1 ([facility]) Lancets - Lancets - 11/03/2020 12:00:00 AM EDT act андрей Lancets - eCW1 ([facility]) Blood Glucose Test - Blood Glucose Test - 11/03/2020 12:00:00 AM EDT active Blood Glucose Test - eCW1 ([facility]) Glucometer UNK 11/03/2020 12:00:00 AM EDT active Glucometer eCW1 ([facility]) Lancets - Lancets - 11/03/2020 12:00:00 AM EDT act андрей Lancets - eCW1 ([facility]) Lancets - Lancets - 11/03/2020 12:00:00 AM EDT act андрей Lancets - eCW1 ([facility]) Glucometer UNK 11/03/2020 12:00:00 AM EDT active eCW1 ([facility]) Lancets - Lancets - 11/03/2020 12:00:00 AM EDT act андрей Lancets - eCW1 ([facility]) Glucometer UNK 11/03/2020 12:00:00 AM EDT active Glucometer eCW1 ([facility]) Blood Glucose Test - Blood Glucose Test - 11/03/2020 12:00:00 AM EDT active Blood Glucose Test - eCW1 ([facility]) Blood Glucose Test - Blood Glucose Test - 11/03/2020 12:00:00 AM EDT active eCW1 ([facility]) Blood Glucose Test - Blood Glucose Test - 11/03/2020 12:00:00 AM EDT active Blood Glucose Test - eCW1 ([facility]) Lancets - Lancets - 11/03/2020 12:00:00 AM EDT act андрей Lancets - eCW1 ([facility]) Blood Glucose Test - Blood Glucose Test - 11/03/2020 12:00:00 AM EDT active Blood Glucose Test - eCW1 ([facility]) Glucometer UNK 11/03/2020 12:00:00 AM EDT active Glucometer eCW1 ([facility]) Glucometer UNK 11/03/2020 12:00:00 AM EDT active Glucometer eCW1 ([facility]) Glucometer UNK 11/03/2020 12:00:00 AM EDT active Glucometer eCW1 ([facility]) Lancets - Lancets - 11/03/2020 12:00:00 AM EDT act андрей Lancets - eCW1 ([facility]) Glucometer UNK 11/03/2020 12:00:00 AM EDT active Glucometer [email or web address] ([facility]) Lancets - Lancets - 11/03/2020 12:00:00 AM EDT act андрей Lancets - eCW1 ([facility]) Glucometer UNK 11/03/2020 12:00:00 AM EDT active Glucometer [email or web address] ([facility]) POLYETHYLENE GLYCOL 3350 142 MG/ML Oral Solution [Miralax] M iralax 10/15/2020 12:00:00 AM EDT ORAL active M EDENT ([facility]) Alprazolam 1 MG Oral Tablet Alprazolam 08/11/2020 12:00:00 AM EDT ORAL active MEDENT ([facility] [place]) Fluconazole 150 MG Oral Tablet [Diflucan] Diflucan 08/11/2020 1 2:00:00 AM EDT ORAL active MEDENT ([facility] [place]) Botox 50 Units For Waste For 200 Units JW Modifier 07/23/2020 12:00:00 AM EDT completed MEDENT ([facility] [place]) Medication administered onsite Botox 200 Units- I Vial 07/23/2020 12:00:00 AM EDT completed MEDENT ([facility] [place]) Medication administered onsite cefdinir 300 MG Oral Capsule Cefdinir 07/16/2020 12:00:00 AM EDT ORAL completed MEDENT ([facility] [place]) 60 ACTUAT Fluticasone propionate 0.25 MG /ACTUAT / salmeterol 0.05 MG/ACTUAT Dry Powder Inhaler [Advair] Advair Diskus 250-50 MCG/DOSE Advair Diskus 250-50 MCG/DOSE 07/07/2020 12:00:00 AM EDT 1.0 {puff} activ e Advair Diskus 250-50 MCG/DOSE eCW1 ([facility]) 60 ACTUAT Fluticasone propionate 0.25 MG /ACTUAT / salmeterol 0.05 MG/ACTUAT Dry Powder Inhaler [Advair] Advair Diskus 250-50 MCG/DOSE Advair Diskus 250-50 MCG/DOSE 07/07/2020 12:00:00 AM EDT 1.0 {puff} activ e Advair Diskus 250-50 MCG/DOSE eCW1 ([facility]) 60 ACTUAT Fluticasone propionate 0.25 MG /ACTUAT / salmeterol 0.05 MG/ACTUAT Dry Powder Inhaler [Advair] Advair Diskus 250-50 MCG/DOSE Advair Diskus 250-50 MCG/DOSE 07/07/2020 12:00:00 AM EDT 1.0 {puff} activ e Advair Diskus 250-50 MCG/DOSE eCW1 ([facility]) 60 ACTUAT Fluticasone propionate 0.25 MG /ACTUAT / salmeterol 0.05 MG/ACTUAT Dry Powder Inhaler [Advair] Advair Diskus 250-50 MCG/DOSE Advair Diskus 250-50 MCG/DOSE 07/07/2020 12:00:00 AM EDT 1.0 {puff} activ e Advair Diskus 250-50 MCG/DOSE eCW1 ([facility]) 60 ACTUAT Fluticasone propionate 0.25 MG /ACTUAT / salmeterol 0.05 MG/ACTUAT Dry Powder Inhaler [Advair] Advair Diskus 250-50 MCG/DOSE Advair Diskus 250-50 MCG/DOSE 07/07/2020 12:00:00 AM EDT 1.0 {puff} activ e Advair Diskus 250-50 MCG/DOSE eCW1 ([facility]) 60 ACTUAT Fluticasone propionate 0.25 MG /ACTUAT / salmeterol 0.05 MG/ACTUAT Dry Powder Inhaler [Advair] Advair Diskus 250-50 MCG/DOSE Advair Diskus 250-50 MCG/DOSE 07/07/2020 12:00:00 AM EDT 1.0 {puff} activ e Advair Diskus 250-50 MCG/DOSE eCW1 ([facility]) 60 ACTUAT Fluticasone propionate 0.25 MG /ACTUAT / salmeterol 0.05 MG/ACTUAT Dry Powder Inhaler [Advair] Advair Diskus 250-50 MCG/DOSE Advair Diskus 250-50 MCG/DOSE 07/07/2020 12:00:00 AM EDT 1.0 {puff} activ e Advair Diskus 250-50 MCG/DOSE eCW1 ([facility]) 60 ACTUAT Fluticasone propionate 0.25 MG /ACTUAT / salmeterol 0.05 MG/ACTUAT Dry Powder Inhaler [Advair] Advair Diskus 250-50 MCG/DOSE Advair Diskus 250-50 MCG/DOSE 07/07/2020 12:00:00 AM EDT 1.0 {puff} activ e Advair Diskus 250-50 MCG/DOSE eCW1 ([facility]) 60 ACTUAT Fluticasone propionate 0.25 MG /ACTUAT / salmeterol 0.05 MG/ACTUAT Dry Powder Inhaler [Advair] Advair Diskus 250-50 MCG/DOSE Advair Diskus 250-50 MCG/DOSE 07/07/2020 12:00:00 AM EDT 1.0 {puff} activ e Advair Diskus 250-50 MCG/DOSE eCW1 ([facility]) 60 ACTUAT Fluticasone propionate 0.25 MG /ACTUAT / salmeterol 0.05 MG/ACTUAT Dry Powder Inhaler [Advair] Advair Diskus 250-50 MCG/DOSE Advair Diskus 250-50 MCG/DOSE 07/07/2020 12:00:00 AM EDT 1.0 {puff} activ e Advair Diskus 250-50 MCG/DOSE eCW1 ([facility]) 60 ACTUAT Fluticasone propionate 0.25 MG /ACTUAT / salmeterol 0.05 MG/ACTUAT Dry Powder Inhaler [Advair] Advair Diskus 250-50 MCG/DOSE Advair Diskus 250-50 MCG/DOSE 07/07/2020 12:00:00 AM EDT 1.0 {puff} activ e Advair Diskus 250-50 MCG/DOSE eCW1 ([facility]) 60 ACTUAT Fluticasone propionate 0.25 MG /ACTUAT / salmeterol 0.05 MG/ACTUAT Dry Powder Inhaler [Advair] Advair Diskus 250-50 MCG/DOSE Advair Diskus 250-50 MCG/DOSE 07/07/2020 12:00:00 AM EDT 1.0 {puff} activ e Advair Diskus 250-50 MCG/DOSE eCW1 ([facility]) 60 ACTUAT Fluticasone propionate 0.25 MG /ACTUAT / salmeterol 0.05 MG/ACTUAT Dry Powder Inhaler [Advair] Advair Diskus 250-50 MCG/DOSE Advair Diskus 250-50 MCG/DOSE 07/07/2020 12:00:00 AM EDT 1.0 {puff} activ e Advair Diskus 250-50 MCG/DOSE eCW1 ([facility]) Alprazolam 1 MG Oral Tablet Alprazolam 05/29/2020 12:00:00 AM EDT ORAL completed MEDENT ([facility] [place]) POLYETHYLENE GLYCOL 3350 142 MG/ML Oral Solution [Dawn lax] MiraLax 17 GM/SCOOP MiraLax 17 GM/SCOOP 05/26/2020 12:00:00 AM EDT active MiraLax 17 GM/SCOOP eCW1 ([facility]) POLYETHYLENE GLYCOL 3350 142 MG/ML Oral Solution [Dawn lax] MiraLax 17 GM/SCOOP MiraLax 17 GM/SCOOP 05/26/2020 12:00:00 AM EDT active MiraLax 17 GM/SCOOP eCW1 ([facility]) POLYETHYLENE GLYCOL 3350 142 MG/ML Oral Solution [Dawn lax] MiraLax 17 GM/SCOOP MiraLax 17 GM/SCOOP 05/26/2020 12:00:00 AM EDT active MiraLax 17 GM/SCOOP eCW1 ([facility]) POLYETHYLENE GLYCOL 3350 142 MG/ML Oral Solution [Dawn lax] MiraLax 17 GM/SCOOP MiraLax 17 GM/SCOOP 05/26/2020 12:00:00 AM EDT active MiraLax 17 GM/SCOOP eCW1 ([facility]) POLYETHYLENE GLYCOL 3350 142 MG/ML Oral Solution [Dawn lax] MiraLax 17 GM/SCOOP MiraLax 17 GM/SCOOP 05/26/2020 12:00:00 AM EDT active MiraLax 17 GM/SCOOP eCW1 ([facility]) POLYETHYLENE GLYCOL 3350 142 MG/ML Oral Solution [Dawn lax] MiraLax 17 GM/SCOOP MiraLax 17 GM/SCOOP 05/26/2020 12:00:00 AM EDT active MiraLax 17 GM/SCOOP eCW1 ([facility]) POLYETHYLENE GLYCOL 3350 142 MG/ML Oral Solution [Dawn lax] MiraLax 17 GM/SCOOP MiraLax 17 GM/SCOOP 05/26/2020 12:00:00 AM EDT active MiraLax 17 GM/SCOOP eCW1 ([facility]) POLYETHYLENE GLYCOL 3350 142 MG/ML Oral Solution [Dawn lax] MiraLax 17 GM/SCOOP MiraLax 17 GM/SCOOP 05/26/2020 12:00:00 AM EDT active MiraLax 17 GM/SCOOP eCW1 ([facility]) POLYETHYLENE GLYCOL 3350 142 MG/ML Oral Solution [Dawn lax] MiraLax 17 GM/SCOOP MiraLax 17 GM/SCOOP 05/26/2020 12:00:00 AM EDT active MiraLax 17 GM/SCOOP eCW1 ([facility]) POLYETHYLENE GLYCOL 3350 142 MG/ML Oral Solution [Dawn lax] MiraLax 17 GM/SCOOP MiraLax 17 GM/SCOOP 05/26/2020 12:00:00 AM EDT active MiraLax 17 GM/SCOOP eCW1 ([facility]) POLYETHYLENE GLYCOL 3350 142 MG/ML Oral Solution [Dawn lax] MiraLax 17 GM/SCOOP MiraLax 17 GM/SCOOP 05/26/2020 12:00:00 AM EDT active MiraLax 17 GM/SCOOP eCW1 ([facility]) 60 ACTUAT Albuterol 0.09 MG/ACTUAT Metered Dose Inhaler Albu terol Sulfate HFA 04/25/2020 12:00:00 AM EST RESPIRATORY active MEDENT ([facility], ) NITROFURANTOIN, MACROCRYSTALS 50 MG Oral Capsule [Macrodanti n] Macrodantin 04/09/2020 12:00:00 AM EST ORAL completed MEDENT ([facility] [place]) Ciprofloxacin 500 MG Oral Tablet Ciprofloxacin HCL 04/09/2020 12:00 :00 AM EST ORAL completed MED[facility] ([facility] [place]) Cyclobenzaprine hydrochloride 10 MG Oral Tablet Cyclob enzaprine HCl 10 MG Cyclobenzaprine HCl 10 MG 02/07/2020 12:00:00 AM EST active Cyclobenzaprine HCl 10 MG eCW1 ([facility]) Cyclobenzaprine hydrochloride 10 MG Oral Tablet Cyclob enzaprine HCl 10 MG Cyclobenzaprine HCl 10 MG 02/07/2020 12:00:00 AM EST active Cyclobenzaprine HCl 10 MG eCW1 ([facility]) Cyclobenzaprine hydrochloride 5 MG Oral Tablet Cyclobe nzaprine HCl 5 MG Cyclobenzaprine HCl 5 MG 02/07/2020 12:00:00 AM EST active Cyclobenzaprine HCl 5 MG eCW1 ([facility]) Cyclobenzaprine hydrochloride 10 MG Oral Tablet Cyclob enzaprine HCl 10 MG Cyclobenzaprine HCl 10 MG 02/07/2020 12:00:00 AM EST active Cyclobenzaprine HCl 10 MG eCW1 ([facility]) Metronidazole 500 MG Oral Tablet Metronidazole 01/14/2020 12:00:00 AM EST ORAL active MEDENT ([facility] [place]) Tamsulosin hydrochloride 0.4 MG Oral Capsule Tamsulosin HCL 01/10/2020 12:00:00 AM EST active MEDENT ([facility] [place]) NITROFURANTOIN, MACROCRYSTALS 25 MG / Ni trofurantoin, Monohydrate 75 MG Oral Capsule [Macrobid] Macrobid 01/10/2020 12:00:00 AM EST ORAL completed [facility] ([facility] Ciprofloxacin 250 MG Oral Tablet Ciprofloxacin HCL 12/13/2019 12:00 :00 AM EDT ORAL completed MEDENT ([facility] [place]) cefdinir 300 MG Oral Capsule cefdinir 300 mg capsule cefdinir 30 0 mg capsule completed cefdinir 300 M G Oral Capsule MARILIA ([facility]) Methylprednisolone 4 MG Oral Tablet methylprednisolone 4 mg tablet 1 tab daily methylprednisolone 4 mg tablet 1 tab daily completed methylprednisolone 4 MG Oral Tablet MARILIA ([facility]) Doxycycline Monohydrate 100 MG Oral Caps ule doxycycline monohydrate 100 mg capsule TAKE ONE CAPSULE BY MOUTH TWICE DAILY FOR SEVEN DAYS doxycycline monohydrate 100 mg capsule TAKE ONE CAPSULE BY MOUTH TWICE DAILY FOR SEVEN DAYS completed doxycycline mo nohydrate 100 MG Oral Capsule MARILIA ([facility]) cefdinir 300 MG Oral Capsule cefdinir 300 mg capsule cefdinir 30 0 mg capsule completed cefdinir 300 M G Oral Capsule MARILIA ([facility]) Amoxicillin 500 MG / Clavulanate 125 MG Oral Tablet amoxicillin 500 mg-potassium clavulanate 125 mg tablet TAKE ONE TABLET BY MOUTH EVERY TWELVE HOURS amoxicillin 500 mg-potassium clavulanate 125 mg tablet TAKE ONE TABLET BY MOUTH EVERY TWELVE HOURS completed amoxicillin 500 MG / clavulanate 125 MG Oral Tablet MARILIA ([facility]) 0.3 ML Enoxaparin sodium 100 MG/ML Prefi lled Syringe enoxaparin 30 mg/0.3 mL subcutaneous syringe INJECT 0.3 MILLILITERS SUBCUTANEOUSLY EVERY 12 HOURS FOR TWO WEEKS enoxaparin 30 mg/0.3 mL subcutaneous syr travis INJECT 0.3 MILLILITERS SUBCUTANEOUSLY EVERY 12 HOURS FOR TWO WEEKS completed 0.3 ML enoxaparin sodium 100 MG/ML Prefilled Syringe MARILIA ([facility]) Methylprednisolone 4 MG Oral Tablet methylprednisolone 4 mg tablet 1 tab daily methylprednisolone 4 mg tablet 1 tab daily completed methylprednisolone 4 MG Oral Tablet MARILIA ([facility]) tramadol hydrochloride 50 MG Oral Tablet tramadol 50 mg tablet TAKE ONE TABLET BY MOUTH EVERY 6 HOURS NEEDED FOR PAIN MAX DAILY DOSE FOUR TABLETS tramadol 50 mg tablet TAKE ONE TABLET BY MOUTH EVERY 6 HOURS NEEDED FOR PAIN MAX DAILY DOSE FOUR TABLETS completed tramadol hydrochloride 50 MG Oral Tablet MARILIA ([facility]) Oxycodone Hydrochloride 5 MG Oral Tablet oxycodone 5 mg tablet TAKE 1 TO 2 TABLETS BY MOUTH EVERY FOUR HOURS NEEDED FOR PAIN MAX DAILY DOSE 12 CAPSULES oxycodone 5 mg tablet TAKE 1 TO 2 TABLETS BY MOUTH EVERY FOUR HOURS NEEDED FOR PAIN MAX DAILY DOSE 12 CAPSULES co mpleted oxycodone hydrochloride 5 MG Oral Tablet MARILIA ([facility]) Prednisone 20 MG Oral Tablet prednisone 20 mg tablet TAKE ONE TABLET BY MOUTH ONCE DAILY FOR FIVE DAYS prednisone 20 mg tablet TAKE ONE TABLET BY MOUTH ONCE DAILY FOR FIVE DAYS completed pr ednisone 20 MG Oral Tablet MARILIA ([facility]) glimepiride 1 MG Oral Tablet glimepiride 1 mg tablet glimepiride 1 mg tablet completed glimepiride 1 MG Oral Tablet MARILIA ([facility]) Alprazolam 1 MG Oral Tablet alprazolam 1 mg tablet alprazolam 1 mg ta blet completed alprazolam 1 MG Oral Tablet MARILIA ([facility]) Alprazolam 1 MG Oral Tablet alprazolam 1 mg tablet alprazolam 1 mg ta blet completed alprazolam 1 MG Oral Tablet MARILIA ([facility]) 0.3 ML Enoxaparin sodium 100 MG/ML Prefi lled Syringe enoxaparin 30 mg/0.3 mL subcutaneous syringe INJECT 0.3 MILLILITERS SUBCUTANEOUSLY EVERY 12 HOURS FOR TWO WEEKS enoxaparin 30 mg/0.3 mL subcutaneous syr travis INJECT 0.3 MILLILITERS SUBCUTANEOUSLY EVERY 12 HOURS FOR TWO WEEKS completed 0.3 ML enoxaparin sodium 100 MG/ML Prefilled Syringe MARILIA ([facility]) Methylprednisolone 2 MG Oral Tablet [Med rol] Medrol 2 mg tablet 1 tablet every other day Medrol 2 mg tablet 1 tablet every other day completed methylprednisolone 2 MG Oral Tablet [Medrol] MARILIA ([facility]) Doxycycline Monohydrate 100 MG Oral Caps ule doxycycline monohydrate 100 mg capsule TAKE ONE CAPSULE BY MOUTH TWICE DAILY FOR SEVEN DAYS doxycycline monohydrate 100 mg capsule TAKE ONE CAPSULE BY MOUTH TWICE DAILY FOR SEVEN DAYS completed doxycycline mo nohydrate 100 MG Oral Capsule MARILIA ([facility]) Prednisone 20 MG Oral Tablet prednisone 20 mg tablet TAKE ONE TABLET BY MOUTH ONCE DAILY FOR FIVE DAYS prednisone 20 mg tablet TAKE ONE TABLET BY MOUTH ONCE DAILY FOR FIVE DAYS completed pr ednisone 20 MG Oral Tablet MARILIA ([facility]) Amoxicillin 500 MG / Clavulanate 125 MG Oral Tablet amoxicillin 500 mg-potassium clavulanate 125 mg tablet TAKE ONE TABLET BY MOUTH EVERY TWELVE HOURS amoxicillin 500 mg-potassium clavulanate 125 mg tablet TAKE ONE TABLET BY MOUTH EVERY TWELVE HOURS completed amoxicillin 500 MG / clavulanate 125 MG Oral Tablet MARILIA ([facility]) Alprazolam 1 MG Oral Tablet alprazolam 1 mg tablet alprazolam 1 mg ta blet completed alprazolam 1 MG Oral Tablet MARILIA ([facility]) 0.3 ML Enoxaparin sodium 100 MG/ML Prefi lled Syringe enoxaparin 30 mg/0.3 mL subcutaneous syringe INJECT 0.3 MILLILITERS SUBCUTANEOUSLY EVERY 12 HOURS FOR TWO WEEKS enoxaparin 30 mg/0.3 mL subcutaneous syr travis INJECT 0.3 MILLILITERS SUBCUTANEOUSLY EVERY 12 HOURS FOR TWO WEEKS completed 0.3 ML enoxaparin sodium 100 MG/ML Prefilled Syringe MARILIA ([facility]) Prednisone 20 MG Oral Tablet prednisone 20 mg tablet TAKE ONE TABLET BY MOUTH ONCE DAILY FOR FIVE DAYS prednisone 20 mg tablet TAKE ONE TABLET BY MOUTH ONCE DAILY FOR FIVE DAYS completed pr ednisone 20 MG Oral Tablet MARILIA ([facility]) 0.3 ML Enoxaparin sodium 100 MG/ML Prefi lled Syringe enoxaparin 30 mg/0.3 mL subcutaneous syringe INJECT 0.3 MILLILITERS SUBCUTANEOUSLY EVERY 12 HOURS FOR TWO WEEKS enoxaparin 30 mg/0.3 mL subcutaneous syr travis INJECT 0.3 MILLILITERS SUBCUTANEOUSLY EVERY 12 HOURS FOR TWO WEEKS completed 0.3 ML enoxaparin sodium 100 MG/ML Prefilled Syringe MARILIA ([facility]) 0.3 ML Enoxaparin sodium 100 MG/ML Prefi lled Syringe enoxaparin 30 mg/0.3 mL subcutaneous syringe INJECT 0.3 MILLILITERS SUBCUTANEOUSLY EVERY 12 HOURS FOR TWO WEEKS enoxaparin 30 mg/0.3 mL subcutaneous syr travis INJECT 0.3 MILLILITERS SUBCUTANEOUSLY EVERY 12 HOURS FOR TWO WEEKS completed 0.3 ML enoxaparin sodium 100 MG/ML Prefilled Syringe MARILIA ([facility]) Amoxicillin 500 MG / Clavulanate 125 MG Oral Tablet amoxicillin 500 mg-potassium clavulanate 125 mg tablet TAKE ONE TABLET BY MOUTH EVERY TWELVE HOURS amoxicillin 500 mg-potassium clavulanate 125 mg tablet TAKE ONE TABLET BY MOUTH EVERY TWELVE HOURS completed amoxicillin 500 MG / clavulanate 125 MG Oral Tablet MARILIA ([facility]) Doxycycline Monohydrate 100 MG Oral Caps ule doxycycline monohydrate 100 mg capsule TAKE ONE CAPSULE BY MOUTH TWICE DAILY FOR SEVEN DAYS doxycycline monohydrate 100 mg capsule TAKE ONE CAPSULE BY MOUTH TWICE DAILY FOR SEVEN DAYS completed doxycycline mo nohydrate 100 MG Oral Capsule MARILIA ([facility]) Acetaminophen 325 MG / Oxycodone Hydroch loride 5 MG Oral Tablet oxycodone- acetaminophen 5 mg-325 mg tablet oxycodone-acetaminophen 5 mg-325 mg tablet completed acetaminop hen 325 MG / oxycodone hydrochloride 5 MG Oral Tablet MARILIA ([facility]) glimepiride 1 MG Oral Tablet glimepiride 1 mg tablet glimepiride 1 mg tablet completed glimepiride 1 MG Oral Tablet MARILIA ([facility]) Estradiol 0.1 MG/ML Vaginal Cream estradiol 0.01% (0.1 mg/gram) vaginal cream estradiol 0.01% (0.1 mg/gram) vaginal cream completed estradiol 0.1 MG/ML Vaginal Cream MARILIA ([facility]) Prednisone 20 MG Oral Tablet prednisone 20 mg tablet TAKE ONE TABLET BY MOUTH ONCE DAILY FOR FIVE DAYS prednisone 20 mg tablet TAKE ONE TABLET BY MOUTH ONCE DAILY FOR FIVE DAYS completed pr ednisone 20 MG Oral Tablet MARILIA ([facility]) glimepiride 2 MG Oral Tablet glimepiride 2 mg tablet TAKE ONE TABLET BY MOUTH @8AM and TAKE ONE TABLET @8PM glimepiride 2 mg tablet TAKE ONE TABLET BY MOUTH @8AM and TAKE ONE TABLET @8PM complete d glimepiride 2 MG Oral Tablet MARILIA ([facility]) Cyclobenzaprine hydrochloride 5 MG Oral Tablet cyclobenzaprine 5 mg tablet TAKE ONE TABLET BY MOUTH @8AM and TAKE ONE TABLET @12PM and TAKE ONE TABLET @8PM cyclobenzaprine 5 mg tablet TAKE ONE TABLET BY MOUTH @8AM and TAKE ONE TABLET @12PM and TAKE ONE TABLET @8PM complet ed cyclobenzaprine hydrochloride 5 MG Oral Tablet MARILIA ([facility]) Acetaminophen 325 MG / Oxycodone Hydroch loride 5 MG Oral Tablet oxycodone- acetaminophen 5 mg-325 mg tablet oxycodone-acetaminophen 5 mg-325 mg tablet completed acetaminop hen 325 MG / oxycodone hydrochloride 5 MG Oral Tablet MARILIA ([facility]) tramadol hydrochloride 50 MG Oral Tablet tramadol 50 mg tablet TAKE ONE TABLET BY MOUTH EVERY 6 HOURS NEEDED FOR PAIN MAX DAILY DOSE FOUR TABLETS tramadol 50 mg tablet TAKE ONE TABLET BY MOUTH EVERY 6 HOURS NEEDED FOR PAIN MAX DAILY DOSE FOUR TABLETS completed tramadol hydrochloride 50 MG Oral Tablet MARILIA ([facility]) Estradiol 0.1 MG/ML Vaginal Cream estradiol 0.01% (0.1 mg/gram) vaginal cream estradiol 0.01% (0.1 mg/gram) vaginal cream completed estradiol 0.1 MG/ML Vaginal Cream MARILIA ([facility]) Estradiol 0.1 MG/ML Vaginal Cream estradiol 0.01% (0.1 mg/gram) vaginal cream estradiol 0.01% (0.1 mg/gram) vaginal cream completed estradiol 0.1 MG/ML Vaginal Cream MARILIA ([facility]) Prednisone 20 MG Oral Tablet prednisone 20 mg tablet TAKE ONE TABLET BY MOUTH ONCE DAILY FOR FIVE DAYS prednisone 20 mg tablet TAKE ONE TABLET BY MOUTH ONCE DAILY FOR FIVE DAYS completed pr ednisone 20 MG Oral Tablet MARILIA ([facility]) Doxycycline Monohydrate 100 MG Oral Caps ule doxycycline monohydrate 100 mg capsule TAKE ONE CAPSULE BY MOUTH TWICE DAILY FOR SEVEN DAYS doxycycline monohydrate 100 mg capsule TAKE ONE CAPSULE BY MOUTH TWICE DAILY FOR SEVEN DAYS completed doxycycline mo nohydrate 100 MG Oral Capsule MARILIA ([facility]) Methylprednisolone 4 MG Oral Tablet methylprednisolone 4 mg tablet 1 tab daily methylprednisolone 4 mg tablet 1 tab daily completed methylprednisolone 4 MG Oral Tablet MARILIA ([facility]) Ciprofloxacin 250 MG Oral Tablet ciprofl oxacin 250 mg tablet TAKE ONE TABLET BY MOUTH TWICE DAILY FOR 3 DAYS ciprofloxacin 250 mg tablet TAKE ONE TAB LET BY MOUTH TWICE DAILY FOR 3 DAYS completed ciprofloxacin 250 MG Oral Tablet MARILIA ([facility]) Methylprednisolone 2 MG Oral Tablet [Med rol] Medrol 2 mg tablet 1 tablet every other day Medrol 2 mg tablet 1 tablet every other day completed methylprednisolone 2 MG Oral Tablet [Medrol] MARILIA ([facility]) Amoxicillin 500 MG / Clavulanate 125 MG Oral Tablet amoxicillin 500 mg-potassium clavulanate 125 mg tablet TAKE ONE TABLET BY MOUTH EVERY TWELVE HOURS amoxicillin 500 mg-potassium clavulanate 125 mg tablet TAKE ONE TABLET BY MOUTH EVERY TWELVE HOURS completed amoxicillin 500 MG / clavulanate 125 MG Oral Tablet MARILIA ([facility]) cefdinir 300 MG Oral Capsule cefdinir 300 mg capsule cefdinir 30 0 mg capsule completed cefdinir 300 M G Oral Capsule MARILIA ([facility]) Doxycycline Monohydrate 100 MG Oral Caps ule doxycycline monohydrate 100 mg capsule TAKE ONE CAPSULE BY MOUTH TWICE DAILY FOR SEVEN DAYS doxycycline monohydrate 100 mg capsule TAKE ONE CAPSULE BY MOUTH TWICE DAILY FOR SEVEN DAYS completed doxycycline mo nohydrate 100 MG Oral Capsule MARILIA ([facility]) Prednisone 20 MG Oral Tablet prednisone 20 mg tablet TAKE ONE TABLET BY MOUTH ONCE DAILY FOR FIVE DAYS prednisone 20 mg tablet TAKE ONE TABLET BY MOUTH ONCE DAILY FOR FIVE DAYS completed pr ednisone 20 MG Oral Tablet MARILIA ([facility]) Estradiol 0.1 MG/ML Vaginal Cream estradiol 0.01% (0.1 mg/gram) vaginal cream estradiol 0.01% (0.1 mg/gram) vaginal cream completed estradiol 0.1 MG/ML Vaginal Cream MARILIA ([facility]) Amoxicillin 500 MG / Clavulanate 125 MG Oral Tablet amoxicillin 500 mg-potassium clavulanate 125 mg tablet TAKE ONE TABLET BY MOUTH EVERY TWELVE HOURS amoxicillin 500 mg-potassium clavulanate 125 mg tablet TAKE ONE TABLET BY MOUTH EVERY TWELVE HOURS completed amoxicillin 500 MG / clavulanate 125 MG Oral Tablet MARILIA ([facility]) 0.3 ML Enoxaparin sodium 100 MG/ML Prefi lled Syringe enoxaparin 30 mg/0.3 mL subcutaneous syringe INJECT 0.3 MILLILITERS SUBCUTANEOUSLY EVERY 12 HOURS FOR TWO WEEKS enoxaparin 30 mg/0.3 mL subcutaneous syr travis INJECT 0.3 MILLILITERS SUBCUTANEOUSLY EVERY 12 HOURS FOR TWO WEEKS completed 0.3 ML enoxaparin sodium 100 MG/ML Prefilled Syringe MARILIA ([facility]) Doxycycline Monohydrate 100 MG Oral Caps ule doxycycline monohydrate 100 mg capsule TAKE ONE CAPSULE BY MOUTH TWICE DAILY FOR SEVEN DAYS doxycycline monohydrate 100 mg capsule TAKE ONE CAPSULE BY MOUTH TWICE DAILY FOR SEVEN DAYS completed doxycycline mo nohydrate 100 MG Oral Capsule MARILIA ([facility]) Methylprednisolone 4 MG Oral Tablet methylprednisolone 4 mg tablet 1 tab daily methylprednisolone 4 mg tablet 1 tab daily completed methylprednisolone 4 MG Oral Tablet MARILIA ([facility]) glimepiride 2 MG Oral Tablet glimepiride 2 mg tablet TAKE ONE TABLET BY MOUTH @8AM and TAKE ONE TABLET @8PM glimepiride 2 mg tablet TAKE ONE TABLET BY MOUTH @8AM and TAKE ONE TABLET @8PM complete d glimepiride 2 MG Oral Tablet MARILIA ([facility]) Ciprofloxacin 250 MG Oral Tablet ciprofl oxacin 250 mg tablet TAKE ONE TABLET BY MOUTH TWICE DAILY FOR 3 DAYS ciprofloxacin 250 mg tablet TAKE ONE TAB LET BY MOUTH TWICE DAILY FOR 3 DAYS completed ciprofloxacin 250 MG Oral Tablet MARILIA ([facility]) Acetaminophen 325 MG / Oxycodone Hydroch loride 5 MG Oral Tablet oxycodone- acetaminophen 5 mg-325 mg tablet oxycodone-acetaminophen 5 mg-325 mg tablet completed acetaminop hen 325 MG / oxycodone hydrochloride 5 MG Oral Tablet MARILIA ([facility]) glimepiride 1 MG Oral Tablet glimepiride 1 mg tablet glimepiride 1 mg tablet completed glimepiride 1 MG Oral Tablet MARILIA ([facility]) tramadol hydrochloride 50 MG Oral Tablet tramadol 50 mg tablet TAKE ONE TABLET BY MOUTH EVERY 6 HOURS NEEDED FOR PAIN MAX DAILY DOSE FOUR TABLETS tramadol 50 mg tablet TAKE ONE TABLET BY MOUTH EVERY 6 HOURS NEEDED FOR PAIN MAX DAILY DOSE FOUR TABLETS completed tramadol hydrochloride 50 MG Oral Tablet MARILIA ([facility]) Oxycodone Hydrochloride 5 MG Oral Tablet oxycodone 5 mg tablet TAKE 1 TO 2 TABLETS BY MOUTH EVERY FOUR HOURS NEEDED FOR PAIN MAX DAILY DOSE 12 CAPSULES oxycodone 5 mg tablet TAKE 1 TO 2 TABLETS BY MOUTH EVERY FOUR HOURS NEEDED FOR PAIN MAX DAILY DOSE 12 CAPSULES co mpleted oxycodone hydrochloride 5 MG Oral Tablet [facility] ([facility]) Oxycodone Hydrochloride 5 MG Oral Tablet oxycodone 5 mg tablet TAKE 1 TO 2 TABLETS BY MOUTH EVERY FOUR HOURS NEEDED FOR PAIN MAX DAILY DOSE 12 CAPSULES oxycodone 5 mg tablet TAKE 1 TO 2 TABLETS BY MOUTH EVERY FOUR HOURS NEEDED FOR PAIN MAX DAILY DOSE 12 CAPSULES co mpleted oxycodone hydrochloride 5 MG Oral Tablet [facility] ([facility]) Methylprednisolone 2 MG Oral Tablet [Med rol] Medrol 2 mg tablet 1 tablet every other day Medrol 2 mg tablet 1 tablet every other day completed methylprednisolone 2 MG Oral Tablet [Medrol] [facility] ([facility]) tramadol hydrochloride 50 MG Oral Tablet tramadol 50 mg tablet TAKE ONE TABLET BY MOUTH EVERY 6 HOURS NEEDED FOR PAIN MAX DAILY DOSE FOUR TABLETS tramadol 50 mg tablet TAKE ONE TABLET BY MOUTH EVERY 6 HOURS NEEDED FOR PAIN MAX DAILY DOSE FOUR TABLETS completed tramadol hydrochloride 50 MG Oral Tablet [facility] ([facility]) Doxycycline Monohydrate 100 MG Oral Caps ule doxycycline monohydrate 100 mg capsule TAKE ONE CAPSULE BY MOUTH TWICE DAILY FOR SEVEN DAYS doxycycline monohydrate 100 mg capsule TAKE ONE CAPSULE BY MOUTH TWICE DAILY FOR SEVEN DAYS completed doxycycline mo nohydrate 100 MG Oral Capsule [facility] ([facility]) Methylprednisolone 2 MG Oral Tablet [Med rol] Medrol 2 mg tablet 1 tablet every other day Medrol 2 mg tablet 1 tablet every other day completed methylprednisolone 2 MG Oral Tablet [Medrol] [facility] ([facility]) Methylprednisolone 4 MG Oral Tablet methylprednisolone 4 mg tablet 1 tab daily methylprednisolone 4 mg tablet 1 tab daily completed methylprednisolone 4 MG Oral Tablet [facility] ([facility]) Acetaminophen 325 MG / Oxycodone Hydroch loride 5 MG Oral Tablet oxycodone- acetaminophen 5 mg-325 mg tablet oxycodone-acetaminophen 5 mg-325 mg tablet completed acetaminop hen 325 MG / oxycodone hydrochloride 5 MG Oral Tablet [facility] ([facility]) Methylprednisolone 2 MG Oral Tablet [Med rol] Medrol 2 mg tablet 1 tablet every other day Medrol 2 mg tablet 1 tablet every other day completed methylprednisolone 2 MG Oral Tablet [Medrol] [facility] ([facility]) tramadol hydrochloride 50 MG Oral Tablet tramadol 50 mg tablet TAKE ONE TABLET BY MOUTH EVERY 6 HOURS NEEDED FOR PAIN MAX DAILY DOSE FOUR TABLETS tramadol 50 mg tablet TAKE ONE TABLET BY MOUTH EVERY 6 HOURS NEEDED FOR PAIN MAX DAILY DOSE FOUR TABLETS completed tramadol hydrochloride 50 MG Oral Tablet [facility] ([facility]) Alprazolam 1 MG Oral Tablet alprazolam 1 mg tablet alprazolam 1 mg ta blet completed alprazolam 1 MG Oral Tablet [facility] ([facility]) Amoxicillin 500 MG / Clavulanate 125 MG Oral Tablet amoxicillin 500 mg-potassium clavulanate 125 mg tablet TAKE ONE TABLET BY MOUTH EVERY TWELVE HOURS amoxicillin 500 mg-potassium clavulanate 125 mg tablet TAKE ONE TABLET BY MOUTH EVERY TWELVE HOURS completed amoxicillin 500 MG / clavulanate 125 MG Oral Tablet [facility] ([facility]) Estradiol 0.1 MG/ML Vaginal Cream estradiol 0.01% (0.1 mg/gram) vaginal cream estradiol 0.01% (0.1 mg/gram) vaginal cream completed estradiol 0.1 MG/ML Vaginal Cream [facility] ([facility]) Prednisone 20 MG Oral Tablet prednisone 20 mg tablet TAKE ONE TABLET BY MOUTH ONCE DAILY FOR FIVE DAYS prednisone 20 mg tablet TAKE ONE TABLET BY MOUTH ONCE DAILY FOR FIVE DAYS completed pr ednisone 20 MG Oral Tablet [facility] ([facility]) Acetaminophen 325 MG / Oxycodone Hydroch loride 5 MG Oral Tablet oxycodone- acetaminophen 5 mg-325 mg tablet oxycodone-acetaminophen 5 mg-325 mg tablet completed acetaminop hen 325 MG / oxycodone hydrochloride 5 MG Oral Tablet [facility] ([facility]) 0.3 ML Enoxaparin sodium 100 MG/ML Prefi lled Syringe enoxaparin 30 mg/0.3 mL subcutaneous syringe INJECT 0.3 MILLILITERS SUBCUTANEOUSLY EVERY 12 HOURS FOR TWO WEEKS enoxaparin 30 mg/0.3 mL subcutaneous syr travis INJECT 0.3 MILLILITERS SUBCUTANEOUSLY EVERY 12 HOURS FOR TWO WEEKS completed 0.3 ML enoxaparin sodium 100 MG/ML Prefilled Syringe [facility] ([facility]) Amoxicillin 500 MG / Clavulanate 125 MG Oral Tablet amoxicillin 500 mg-potassium clavulanate 125 mg tablet TAKE ONE TABLET BY MOUTH EVERY TWELVE HOURS amoxicillin 500 mg-potassium clavulanate 125 mg tablet TAKE ONE TABLET BY MOUTH EVERY TWELVE HOURS completed amoxicillin 500 MG / clavulanate 125 MG Oral Tablet [facility] ([facility]) Methylprednisolone 2 MG Oral Tablet [Med rol] Medrol 2 mg tablet 1 tablet every other day Medrol 2 mg tablet 1 tablet every other day completed methylprednisolone 2 MG Oral Tablet [Medrol] [facility] ([facility]) Cyclobenzaprine hydrochloride 5 MG Oral Tablet cyclobenzaprine 5 mg tablet TAKE ONE TABLET BY MOUTH @8AM and TAKE ONE TABLET @12PM and TAKE ONE TABLET @8PM cyclobenzaprine 5 mg tablet TAKE ONE TABLET BY MOUTH @8AM and TAKE ONE TABLET @12PM and TAKE ONE TABLET @8PM complet ed cyclobenzaprine hydrochloride 5 MG Oral Tablet [facility] ([facility]) Acetaminophen 325 MG / Oxycodone Hydroch loride 5 MG Oral Tablet oxycodone- acetaminophen 5 mg-325 mg tablet oxycodone-acetaminophen 5 mg-325 mg tablet completed acetaminop hen 325 MG / oxycodone hydrochloride 5 MG Oral Tablet [facility] ([facility]) Ciprofloxacin 250 MG Oral Tablet ciprofl oxacin 250 mg tablet TAKE ONE TABLET BY MOUTH TWICE DAILY FOR 3 DAYS ciprofloxacin 250 mg tablet TAKE ONE TAB LET BY MOUTH TWICE DAILY FOR 3 DAYS completed ciprofloxacin 250 MG Oral Tablet [facility] ([facility]) Oxycodone Hydrochloride 5 MG Oral Tablet oxycodone 5 mg tablet TAKE 1 TO 2 TABLETS BY MOUTH EVERY FOUR HOURS NEEDED FOR PAIN MAX DAILY DOSE 12 CAPSULES oxycodone 5 mg tablet TAKE 1 TO 2 TABLETS BY MOUTH EVERY FOUR HOURS NEEDED FOR PAIN MAX DAILY DOSE 12 CAPSULES co mpleted oxycodone hydrochloride 5 MG Oral Tablet [facility] ([facility]) Ciprofloxacin 250 MG Oral Tablet ciprofl oxacin 250 mg tablet TAKE ONE TABLET BY MOUTH TWICE DAILY FOR 3 DAYS ciprofloxacin 250 mg tablet TAKE ONE TAB LET BY MOUTH TWICE DAILY FOR 3 DAYS completed ciprofloxacin 250 MG Oral Tablet [facility] ([facility]) tramadol hydrochloride 50 MG Oral Tablet tramadol 50 mg tablet TAKE ONE TABLET BY MOUTH EVERY 6 HOURS NEEDED FOR PAIN MAX DAILY DOSE FOUR TABLETS tramadol 50 mg tablet TAKE ONE TABLET BY MOUTH EVERY 6 HOURS NEEDED FOR PAIN MAX DAILY DOSE FOUR TABLETS completed tramadol hydrochloride 50 MG Oral Tablet [facility] ([facility]) Prednisone 20 MG Oral Tablet prednisone 20 mg tablet TAKE ONE TABLET BY MOUTH ONCE DAILY FOR FIVE DAYS prednisone 20 mg tablet TAKE ONE TABLET BY MOUTH ONCE DAILY FOR FIVE DAYS completed pr ednisone 20 MG Oral Tablet [facility] ([facility]) Methylprednisolone 4 MG Oral Tablet methylprednisolone 4 mg tablet 1 tab daily methylprednisolone 4 mg tablet 1 tab daily completed methylprednisolone 4 MG Oral Tablet [facility] ([facility]) cefdinir 300 MG Oral Capsule cefdinir 300 mg capsule cefdinir 30 0 mg capsule completed cefdinir 300 M G Oral Capsule [facility] ([facility]) Estradiol 0.1 MG/ML Vaginal Cream estradiol 0.01% (0.1 mg/gram) vaginal cream estradiol 0.01% (0.1 mg/gram) vaginal cream completed estradiol 0.1 MG/ML Vaginal Cream [facility] ([facility]) Methylprednisolone 4 MG Oral Tablet methylprednisolone 4 mg tablet 1 tab daily methylprednisolone 4 mg tablet 1 tab daily completed methylprednisolone 4 MG Oral Tablet [facility] ([facility]) tramadol hydrochloride 50 MG Oral Tablet tramadol 50 mg tablet TAKE ONE TABLET BY MOUTH EVERY 6 HOURS NEEDED FOR PAIN MAX DAILY DOSE FOUR TABLETS tramadol 50 mg tablet TAKE ONE TABLET BY MOUTH EVERY 6 HOURS NEEDED FOR PAIN MAX DAILY DOSE FOUR TABLETS completed tramadol hydrochloride 50 MG Oral Tablet [facility] ([facility]) glimepiride 2 MG Oral Tablet glimepiride 2 mg tablet TAKE ONE TABLET BY MOUTH @8AM and TAKE ONE TABLET @8PM glimepiride 2 mg tablet TAKE ONE TABLET BY MOUTH @8AM and TAKE ONE TABLET @8PM complete d glimepiride 2 MG Oral Tablet [facility] ([facility]) Doxycycline Monohydrate 100 MG Oral Caps ule doxycycline monohydrate 100 mg capsule TAKE ONE CAPSULE BY MOUTH TWICE DAILY FOR SEVEN DAYS doxycycline monohydrate 100 mg capsule TAKE ONE CAPSULE BY MOUTH TWICE DAILY FOR SEVEN DAYS completed doxycycline mo nohydrate 100 MG Oral Capsule [facility] ([facility]) Oxycodone Hydrochloride 5 MG Oral Tablet oxycodone 5 mg tablet TAKE 1 TO 2 TABLETS BY MOUTH EVERY FOUR HOURS NEEDED FOR PAIN MAX DAILY DOSE 12 CAPSULES oxycodone 5 mg tablet TAKE 1 TO 2 TABLETS BY MOUTH EVERY FOUR HOURS NEEDED FOR PAIN MAX DAILY DOSE 12 CAPSULES co mpleted oxycodone hydrochloride 5 MG Oral Tablet [facility] ([facility]) Oxycodone Hydrochloride 5 MG Oral Tablet oxycodone 5 mg tablet TAKE 1 TO 2 TABLETS BY MOUTH EVERY FOUR HOURS NEEDED FOR PAIN MAX DAILY DOSE 12 CAPSULES oxycodone 5 mg tablet TAKE 1 TO 2 TABLETS BY MOUTH EVERY FOUR HOURS NEEDED FOR PAIN MAX DAILY DOSE 12 CAPSULES co mpleted oxycodone hydrochloride 5 MG Oral Tablet [facility] ([facility]) Methylprednisolone 2 MG Oral Tablet [Med rol] Medrol 2 mg tablet 1 tablet every other day Medrol 2 mg tablet 1 tablet every other day completed methylprednisolone 2 MG Oral Tablet [Medrol] [facility]IL[facility] ([facility]) Oxycodone Hydrochloride 5 MG Oral Tablet oxycodone 5 mg tablet TAKE 1 TO 2 TABLETS BY MOUTH EVERY FOUR HOURS NEEDED FOR PAIN MAX DAILY DOSE 12 CAPSULES oxycodone 5 mg tablet TAKE 1 TO 2 TABLETS BY MOUTH EVERY FOUR HOURS NEEDED FOR PAIN MAX DAILY DOSE 12 CAPSULES co mpleted oxycodone hydrochloride 5 MG Oral Tablet [facility] ([facility]) Methylprednisolone 4 MG Oral Tablet methylprednisolone 4 mg tablet 1 tab daily methylprednisolone 4 mg tablet 1 tab daily completed methylprednisolone 4 MG Oral Tablet [facility] ([facility]) Doxycycline Monohydrate 100 MG Oral Caps ule doxycycline monohydrate 100 mg capsule TAKE ONE CAPSULE BY MOUTH TWICE DAILY FOR SEVEN DAYS doxycycline monohydrate 100 mg capsule TAKE ONE CAPSULE BY MOUTH TWICE DAILY FOR SEVEN DAYS completed doxycycline mo nohydrate 100 MG Oral Capsule [facility] ([facility]) glimepiride 1 MG Oral Tablet glimepiride 1 mg tablet glimepiride 1 mg tablet completed glimepiride 1 MG Oral Tablet [facility] ([facility]) Oxycodone Hydrochloride 5 MG Oral Tablet oxycodone 5 mg tablet TAKE 1 TO 2 TABLETS BY MOUTH EVERY FOUR HOURS NEEDED FOR PAIN MAX DAILY DOSE 12 CAPSULES oxycodone 5 mg tablet TAKE 1 TO 2 TABLETS BY MOUTH EVERY FOUR HOURS NEEDED FOR PAIN MAX DAILY DOSE 12 CAPSULES co mpleted oxycodone hydrochloride 5 MG Oral Tablet [facility] ([facility]) cefdinir 300 MG Oral Capsule cefdinir 300 mg capsule cefdinir 30 0 mg capsule completed cefdinir 300 M G Oral Capsule [facility] ([facility]) Prednisone 20 MG Oral Tablet prednisone 20 mg tablet TAKE ONE TABLET BY MOUTH ONCE DAILY FOR FIVE DAYS prednisone 20 mg tablet TAKE ONE TABLET BY MOUTH ONCE DAILY FOR FIVE DAYS completed pr ednisone 20 MG Oral Tablet [facility] ([facility]) Estradiol 0.1 MG/ML Vaginal Cream estradiol 0.01% (0.1 mg/gram) vaginal cream estradiol 0.01% (0.1 mg/gram) vaginal cream completed estradiol 0.1 MG/ML Vaginal Cream [facility] ([facility]) 0.3 ML Enoxaparin sodium 100 MG/ML Prefi lled Syringe enoxaparin 30 mg/0.3 mL subcutaneous syringe INJECT 0.3 MILLILITERS SUBCUTANEOUSLY EVERY 12 HOURS FOR TWO WEEKS enoxaparin 30 mg/0.3 mL subcutaneous syr travis INJECT 0.3 MILLILITERS SUBCUTANEOUSLY EVERY 12 HOURS FOR TWO WEEKS completed 0.3 ML enoxaparin sodium 100 MG/ML Prefilled Syringe [facility] ([facility]) 0.3 ML Enoxaparin sodium 100 MG/ML Prefi lled Syringe enoxaparin 30 mg/0.3 mL subcutaneous syringe INJECT 0.3 MILLILITERS SUBCUTANEOUSLY EVERY 12 HOURS FOR TWO WEEKS enoxaparin 30 mg/0.3 mL subcutaneous syr travis INJECT 0.3 MILLILITERS SUBCUTANEOUSLY EVERY 12 HOURS FOR TWO WEEKS completed 0.3 ML enoxaparin sodium 100 MG/ML Prefilled Syringe [facility] ([facility]) Amoxicillin 500 MG / Clavulanate 125 MG Oral Tablet amoxicillin 500 mg-potassium clavulanate 125 mg tablet TAKE ONE TABLET BY MOUTH EVERY TWELVE HOURS amoxicillin 500 mg-potassium clavulanate 125 mg tablet TAKE ONE TABLET BY MOUTH EVERY TWELVE HOURS completed amoxicillin 500 MG / clavulanate 125 MG Oral Tablet [facility] ([facility]) Acetaminophen 325 MG / Oxycodone Hydroch loride 5 MG Oral Tablet oxycodone- acetaminophen 5 mg-325 mg tablet oxycodone-acetaminophen 5 mg-325 mg tablet completed acetaminop hen 325 MG / oxycodone hydrochloride 5 MG Oral Tablet [facility] ([facility]) 0.3 ML Enoxaparin sodium 100 MG/ML Prefi lled Syringe enoxaparin 30 mg/0.3 mL subcutaneous syringe INJECT 0.3 MILLILITERS SUBCUTANEOUSLY EVERY 12 HOURS FOR TWO WEEKS enoxaparin 30 mg/0.3 mL subcutaneous syr travis INJECT 0.3 MILLILITERS SUBCUTANEOUSLY EVERY 12 HOURS FOR TWO WEEKS completed 0.3 ML enoxaparin sodium 100 MG/ML Prefilled Syringe [facility]IA ([facility]) Ciprofloxacin 250 MG Oral Tablet ciprofl oxacin 250 mg tablet TAKE ONE TABLET BY MOUTH TWICE DAILY FOR 3 DAYS ciprofloxacin 250 mg tablet TAKE ONE TAB LET BY MOUTH TWICE DAILY FOR 3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 CATHETER 04/07/2020 12:00:00 AM EST [facility] ([facility] [place]) ARTHROCENTESIS 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 ID Date Data Source GASTROINTESTINAL GI PANEL (GIPANEL) 01/22/2021 12:00:00 AM EST eCW1 ([facility]) Name Value Range Interpretation Code Description Data Tashia rce(s) Supporting Document(s) This Gastrointestinal PCR Panel detects the following bacteria, GASTROINTESTINAL (GI) PANEL eCW1 ([facility]) ID Date Data Source [id number] 12/29/2020 04:17:00 PM EDT [facility] Name Value Range Interpretation Code Description Data Tashia rce(s) Supporting Document(s) SARS-CoV-2 (COVID 19) NEGATIVE - SARS-CoV-2 (COVID19) [facility] This lab was ordered by [facility] a nd reported by [facility]. ID Date Data Source [id number] 12/27/2020 09:35:00 AM EDT [facility] Name Value Range Interpretation Code Description Data Tashia rce(s) Supporting Document(s) SARS-CoV-2 (COVID-19) RNA [Presence] in Respiratory specimen by PHANI with probe detection Not Detected [facility] This lab was ordered by [facility] and reported by [employer] ID Date Data Source [id number] 12/24/2020 12:00:00 AM EDT [facility] Name Value Range Interpretation Code Description Data Tashia rce(s) Supporting Document(s) SARS-CoV2 Rapid Antigen Negative [facility] This lab was ordered by [facility] and reported by [facility]. ID Date Data Source [id number] 11/26/2020 11:30:00 AM EDT [facility] Name Value Range Interpretation Code Description Data Tashia rce(s) Supporting Document(s) SARS-CoV-2 (COVID-19) RNA [Presence] in Respiratory specimen by PHANI with probe detection Not Detected [facility] This lab was ordered by [facility] and reported by [employer] ID Date Data Source Comprehensive Metabolic Profile (CMP) 11/14/2020 12:00:00 AM EDT eCW1 ([facility]) Name Value Range Interpretation Code Description Data Tashia rce(s) Supporting Document(s) 64 70-100 GLUCOSE, FASTING eCW1 ([facility]) 15 7-18 BLOOD UREA NITROGEN eCW1 ([facility]) 0.72 0.55-1.30 CREATININE FOR GFR eCW1 ([facility]) > 60.0 >45 GLOMERULAR FILTRATION RATE eCW 1 ([facility]) 137 136-145 SODIUM LEVEL eCW1 ([facility]) 102 98-107 CHLORIDE LEVEL eCW1 ([facility]) 4.3 3.5-5.1 POTASSIUM SERUM eCW1 ([facility]) 28 21-32 CARBON DIOXIDE LEVEL eCW1 ([facility]) 8.8 8.8-10.2 CALCIUM LEVEL eCW1 ([facility]) 21 7-37 AST/SGOT eCW1 ([facility]) 30 12-78 ALT/SGPT eCW1 ([facility]) 95 45-117 ALKALINE PHOSPHATASE eCW1 ([facility]) 0.9 0.2-1.0 BILIRUBIN,TOTAL eCW1 ([facility]) 6.8 6.4-8.2 TOTAL PROTEIN eCW1 ([facility]) 3.3 3.2-5.2 ALBUMIN eCW1 ([facility]) 0.9 1.2-2.2 ALBUMIN/GLOBULIN RATIO eCW1 ([facility]) ID Date Data Source NT-PRO BNP 11/14/2020 12:00:00 AM EDT eCW1 ([facility]) Name Value Range Interpretation Code Description Data Tashia rce(s) Supporting Document(s) 57 <125 NT-PRO BNP eCW1 ([facility]) ID Date Data Source FERRITIN 11/14/2020 12:00:00 AM EDT eCW1 ([facility]) Name Value Range Interpretation Code Description Data Tashia rce(s) Supporting Document(s) 8 1-252 FERRITIN eCW1 ([facility]) ID Date Data Source PT & APTT 11/14/2020 12:00:00 AM EDT eCW1 ([facility]) Name Value Range Interpretation Code Description Data Tashia rce(s) Supporting Document(s) 12.5 12.7-14.5 PROTHROMBIN TIME eCW1 ([facility]) 0.89 INR eCW1 ([facility]) 27.5 25.9-37.0 PARTIAL THROMBOPLASTIN TI ME eCW1 ([facility]) ID Date Data Source UA URINALYSIS 11/14/2020 12:00:00 AM EDT eCW1 ([facility]) Name Value Range Interpretation Code Description Data Tashia rce(s) Supporting Document(s) Laboratory studies (set) UA URINALYS IS eCW1 ([facility]) ID Date Data Source FREE T4 & TSH PANEL 11/14/2020 12:00:00 AM EDT eCW1 ([facility]) Name Value Range Interpretation Code Description Data Tashia rce(s) Supporting Document(s) 1.320 0.358-3.740 THYROID STIMULATING HORM ONE eCW1 ([facility]) 1.10 0.76-1.46 FREE T4 eCW1 ([facility]) ID Date Data Source CBC with Differential 11/14/2020 12:00:00 AM EDT eCW1 ([facility]) Name Value Range Interpretation Code Description Data Tashia rce(s) Supporting Document(s) 8.1 4.0-10.0 WHITE BLOOD COUNT eCW1 ([facility]) 3.63 4.00-5.40 RED BLOOD COUNT eCW1 ([facility]) 9.5 12.0-15.5 HEMOGLOBIN eCW1 ([facility]) 86.2 80.0-96.0 MEAN CORPUSCULAR VOLUME e CW1 ([facility]) 31.3 36.0-47.0 HEMATOCRIT eCW1 ([facility]) 30.4 32.0-36.5 MEAN CORPUSCULAR HGB CONC eCW1 ([facility]) 26.2 27.0-33.0 MEAN CORPUSCULAR HEMOGLOB IN eCW1 ([facility]) 15.8 11.5-14.5 RED CELL DISTRIBUTION WID TH eCW1 ([facility]) 342 150-450 PLATELET COUNT, AUTOMATED eCW1 ([facility]) 51.9 36.0-66.0 NEUTROPHILS % eCW1 ([facility]) 5.0 2.0-8.0 MONO % eCW1 ([facility]) 39.4 24.0-44.0 LYMPH % eCW1 ([facility]) 0.9 0.0-1.0 BASO % eCW1 ([facility]) 2.4 0.0-3.0 EOS % eCW1 ([facility]) 4.2 1.5-8.5 NEUTROPHILS # eCW1 ([facility]) 3.2 1.5-5.0 LYMPH # eCW1 ([facility]) 0.2 0.0-0.5 EOS # eCW1 ([facility]) 0.4 0.0-0.8 MONO # eCW1 ([facility]) 0.1 0.0-0.2 BASO # eCW1 ([facility]) ID Date Data Source URINE CULTURE 11/14/2020 12:00:00 AM EDT eCW1 ([facility]) Name Value Range Interpretation Code Description Data Tasiha rce(s) Supporting Document(s) Laboratory studies (set) URINE CULTU RE W ([facility]) ID Date Data Source MAGNESIUM LEVEL 11/14/2020 12:00:00 AM EDT [facility] ([facility]) Name Value Range Interpretation Code Description Data Tashia rce(s) Supporting Document(s) 2.0 1.8-2.4 MAGNESIUM LEVEL [facility] ([facility]) ID Date Data Source [id number] 10/21/2020 04:25:00 PM EDT [facility] ([facility], ) Name Value Range Interpretation Code Description Data Tashia rce(s) Supporting Document(s) White Blood Count 7.7 10 4.0-10.0 Normal (applies to non-numeri c results) [facility] ([facility], ) Red Blood Count 4.17 10 4.00-5.40 Normal (applies to non-numeric results) [facility] ([facility], ) Hemoglobin 11.0 g/dL 12.0-15.5 Below low normal [facility] ( [facility]) Hematocrit 35.5 % 36.0-47.0 Below low normal [facility] ( [facility]) Mean Corpuscular Hemoglobin 26.4 pg 27.0-33.0 Below low normal [facility] ([facility]) Mean Corpuscular Volume 85.1 fl 80.0-96.0 Normal ( applies to non-numeric results) [facility] ([facility]) Mean Corpuscular HGB Conc 31.0 g/dL 32.0-36.5 Below low normal [facility] ([facility]) Red Cell Distribution Width 15.9 % 11.5-14.5 Above high normal [facility] ([facility]) Platelet Count, Automated 346 10 150-450 Normal (applies to non-numeric results) [facility] ([facility]) Nucleated Red Blood Cell % 0.0 % 0-0 Normal (applies to n on-numeric results) [facility] ([facility]) 11/11/20 (TueNov 11) 09:16 AM MICHAEL ABERNATHY Continues to have anemia. Will further evaluate. ID Date Data Source [id number] 10/21/2020 04:25:00 PM EDT [facility] ([facility]) Name Value Range Interpretation Code Description Data Tashia rce(s) Supporting Document(s) Iron (Fe) 35 ug/dL 50-170 Below low normal [facility] ( [facility]) Total Iron Binding Capacity 487 ug/dL 250-450 Above high normal [facility] ([facility]) Percent Saturation 7.2 % 13.2-45.0 Below low normal [facility] ([facility]) 11/11/20 (TueNov 11) 09:16 AM MICHAEL ABERNATHY Iron deficiency noted. Continue to take iron supplement as directed. Will further evaluate. ID Date Data Source [id number] 10/21/2020 04:25:00 PM EDT [facility] ([facility]) Name Value Range Interpretation Code Description Data Tashia rce(s) Supporting Document(s) Urea nitrogen [Mass/volume] in Serum or Plasma 14 mg/dL 7 -18 Normal (applies to non-numeric results) [facility]) ID Date Data Source [id number] 10/21/2020 04:25:00 PM EDT [facility] ([facility]) Name Value Range Interpretation Code Description Data Tashia rce(s) Supporting Document(s) Creatinine For GFR 0.72 mg/dL 0.55-1.30 Normal (applies to non -numeric results) [facility] ([facility]) Glomerular Filtration Rate Laboratory test result Normal (applies to non- numeric results) [facility]) <content>Units are mL/min/1.73 m2</content>
<content></content>
<content>Chronic Kidney Disease Staging per NKF:</content>
<content></content>
<content>Stage I & II GFR >=60 Normal to Mildly Decreased</content>
<content>Stage III GFR 30- 59 Moderately Decreased</content>
<content>Stage IV GFR 15-29 Severely Decreased</content>
<content>Stage V GFR <15 Very Little GFR Left</content>
<content>ESRD GFR <15 on PULLEY [employer]PERATOR</content>
<content></content> ID Date Data Source [id number] 10/20/2020 12:00:00 AM EDT [facility] Name Value Range Interpretation Code Description Data Tashia rce(s) Supporting Document(s) SARS-CoV-2 NEGATIVE [facility] This lab was ordered by [facility]-COVID19 and reported by [employer]. ID Date Data Source [id number] 10/20/2020 12:00:00 AM EDT [facility] ([facility]) Name Value Range Interpretation Code Description Data Tashia rce(s) Supporting Document(s) ID Date Data Source [id number] 10/20/2020 12:00:00 AM EDT [facility] ([facility]) Name Value Range Interpretation Code Description Data Tashia rce(s) Supporting Document(s) SARS-CoV-2 (COVID-19) RNA [Presence] in Respiratory specimen by PHANI with probe detection negative negative Sars-cov-2 [facility] ([facility]) ID Date Data Source [id number] 10/08/2020 09:54:00 AM EDT [facility] ([facility], ) Name Value Range Interpretation Code Description Data Tashia rce(s) Supporting Document(s) PDFReport Laboratory test result [facility] ([facility], ) FVC-Pred 3.44 L [facility] ([facility], ) FVC-%Pred-Pre 69 L [facility] ([facility], ) FVC-Pre 2.38 L [facility] ([facility]) Fev1-Pred 2.64 L [facility] ([facility]) FVC-LLN 2.70 L [facility] ([facility]) Fev1-Pre 1.77 L [facility] ([facility]) Fev1-%Pred-Pre 67 L [facility] ([facility]) Fev1-LLN 2.01 L [facility] ([facility]) Fev6-Pre 2.35 L [facility] ([facility]) Fev6-Pred 3.31 L [facility] ([facility]) Fev6-LLN 2.59 L [facility] ([facility]) Fev6-%Pred-Pre 71 L [facility] ([facility], ) Ipj6vjw-Ubln 77 % [facility] ([facility]) Iov0zhi-Jff 74 % [facility] ([facility]) Bhh0kju-DTT 67 % [facility] ([facility]) Heo6rnk-%Pred-Pre 96 % [facility] ([facility]) Trf4zsi-%Pred-Pre 102 % [facility] ([facility]) Eog9vso-Ndz 99 % [facility] ([facility]) Ctx0zdy-Bvxk 96 % [facility] ([facility]) FEFMax-Pre 5.14 L/E/sec [facility] ([facility]) FEFMax-Pred 6.37 L/E/sec [facility] ([facility]) FEFMax-%Pred-Pre 80 L/E/sec [facility] ([facility]) FEFMax-LLN 4.55 L/E/sec [facility] ([facility], ) Afq7863-%Pred-Pre 56 L/E/sec [facility] ([facility]) Pgs9696-Wvax 2.29 L/E/sec [facility] ([facility]) Rtb3315-Jpo 1.30 L/E/sec [facility] ([facility]) ExpTime-Pre 7.83 sec [facility] ([facility]) Gdy1390-BTT 0.97 L/E/sec [facility] ([facility]) Nyb4gne5-Oyzl 80 % [facility] ([facility]) Nkm3fjd7-Hir 75 % [facility] ([facility]) Oda4qes1-%Pred-Pre 93 % [facility] ([facility]) Scs6mow7-ZUS 71 % [facility] ([facility]) ID Date Data Source [id number] 08/11/2020 04:02:00 PM EDT [facility] ([facility]) Name Value Range Interpretation Code Description Data Tashia rce(s) Supporting Document(s) Linda sp rRNA [Presence] in Vaginal fluid by DNA probe Lab oratory test result Abnormal (applies to non-numeric results) [facility] ([facility] [place]) Gardnerella By Dna Probe Laboratory test result [facility] ([facility] [place]) Trichomonas vaginalis rRNA [Presence] in Genital speci men by DNA probe Laboratory test result [facility] ([facility] [place]) TESTING PERFORMED BY NUCLEIC ACID HYBRID IZATION ID Date Data Source [id number] 08/11/2020 04:02:00 PM EDT [facility] ([facility]) Name Value Range Interpretation Code Description Data Tashia rce(s) Supporting Document(s) Bacteria identified in Vaginal fluid by Aerobe culture Laborator y test result [facility] ([facility] [place]) ID Date Data Source [id number] 08/12/2020 12:21:00 PM EDT [facility] Name Value Range Interpretation Code Description Data Tashia rce(s) Supporting Document(s) LINDA BY DNA PROBE POSITIVE NEGATIVE [facility] GARDNERELLA BY DNA PROBE NEGATIVE NEGATIVE [facility] TRICHOMONAS BY DNA PROBE NEGATIVE NEGATIVE [facility] TESTING PERFORMED BY NUCLEIC ACID HYBRI DIZATION ID Date Data Source [id number] 08/11/2020 03:39:00 PM EDT [facility] ([facility]) Name Value Range Interpretation Code Description Data Tashia rce(s) Supporting Document(s) Protein [Presence] in Urine by Test strip 30 mg/dL [facility] ([facility]) Glucose [Presence] in Urine 100 mg/dL [facility] ([facility]) Ua Nitrite Laboratory test result [facility] ([facility]) Ua Leuko Laboratory test result [facility] ([facility] [place]) Color of Urine Laboratory test result [facility] ([facility]) Blood [Presence] in Urine by Visual Laboratory test result [facility] ([facility]) Ketones [Presence] in Urine by Test strip Laboratory test result [facility] ([facility]) Clarity of Urine Laboratory test result [facility] ([facility] [place]) pH of Urine by Test strip 7.0 5.0-7.5 [facility] ([facility]) Ua Specific [place] 1.020 1.003-1.030 MED[facility] NT ([facility]) Urobilinogen [Mass/volume] in Urine by Test strip 0.2 E.U./dL 0.0-1.0 [facility] ([facility]) Bilirubin.total [Presence] in Urine by Test strip Laboratory test res ult [facility] ([facility] [place]) ID Date Data Source [id number] 08/11/2020 12:00:00 AM EDT [facility] ([facility]) Name Value Range Interpretation Code Description Data Tashia rce(s) Supporting Document(s) ID Date Data Source [id number] 08/11/2020 12:00:00 AM EDT [facility] Name Value Range Interpretation Code Description Data Tashia rce(s) Supporting Document(s) SARS-CoV-2 NEGATIVE [facility] This lab was ordered by [facility]-COVID[facility] and reported by [employer]. ID Date Data Source [id number] 08/11/2020 12:00:00 AM EDT [place] ([facility]) Name Value Range Interpretation Code Description Data Tashia rce(s) Supporting Document(s) ID Date Data Source [id number] 08/11/2020 12:00:00 AM EDT [facility] ([facility]) Name Value Range Interpretation Code Description Data Tashia rce(s) Supporting Document(s) ID Date Data Source [id number] 07/23/2020 09:44:00 AM EDT [facility] ([facility]) Name Value Range Interpretation Code Description Data Tashia rce(s) Supporting Document(s) Glucose [Presence] in Urine Laboratory test result [facility] ([facility]) Ua Nitrite Laboratory test result [facility] ([facility]) Protein [Presence] in Urine by Test strip Laboratory test result [facility] ([facility]) Ua Leuko Laboratory test result [facility] ([facility]) Blood [Presence] in Urine by Visual Laboratory test result [facility] ([facility]) Ketones [Presence] in Urine by Test strip Laboratory test result [facility] ([facility] [place]) Color of Urine Laboratory test result [facility] ([facility]) Ua Specific [place] 1.025 1.003-1.030 MED[facility] NT ([facility]) Clarity of Urine Laboratory test result [facility] ([facility] [place]) pH of Urine by Test strip 7.0 5.0-7.5 [facility] ([facility]) Bilirubin.total [Presence] in Urine by Test strip Laboratory test res ult [facility] ([facility]) Urobilinogen [Mass/volume] in Urine by Test strip 0.2 E.U./dL 0.0-1.0 [facility] ([facility]) ID Date Data Source [id number] 07/14/2020 03:26:00 PM EDT [facility] ([facility]) Name Value Range Interpretation Code Description Data Tashia rce(s) Supporting Document(s) Bacteria identified in Urine by Culture Laboratory test result [facility] ([facility]) <content> --------</content>
<content>Run: 07/16/20 0832 INTERFACED REPORT</content>
<content> </content>
<content>Name: Trini Jiang Age/Sex: 65/F Location: [facility]</content>
<content>Acct: [id number] Unit: [id number] Status: REG REF Room/Bed:</content>
<content>Re07/14/20 Disch: Junior Dr: Monica Bal MD</content>
<content> </content>
<content></content>
<content>Specimen #: [id number] Ordered : 07/14/2012/25/1809</content>
<content>Collected : 07/14/2012/26/1515 By: [...] REPORT </content>
<content></content> ID Date Data Source [id number] 07/16/2020 08:32:00 AM EDT [facility] Run: 07/16/20 0832 INTERFACED REPORT Name: Trini Jiang Age/Sex: 65/F Location: LAB Acct: [id number] Unit: [id number] Status: REG REF Room/Bed: Re07/14/20 Disch: Att Dr: Monica Bal MD Specimen #: [id number] Ordered : 07/14/2012/25/1809 Collected : 07/14/2012/26/1515 By: [...] rce(s) Supporting Document(s) ID Date Data Source [id number] 07/14/2020 03:15:00 PM EDT [facility] ([facility]) Name Value Range Interpretation Code Description Data Tashia rce(s) Supporting Document(s) Glucose [Presence] in Urine Laboratory test result [facility] ([facility]) Ua Nitrite Laboratory test result [facility] ([facility]) Protein [Presence] in Urine by Test strip 30 mg/dL [facility] ([facility]) Blood [Presence] in Urine by Visual Laboratory test result [facility] ([facility]) Ua Leuko Laboratory test result [facility] ([facility]) Clarity of Urine Laboratory test result [facility] ([facility]) Ketones [Presence] in Urine by Test strip Laboratory test result [facility] ([facility]) Color of Urine Laboratory test result [facility] ([facility]) pH of Urine by Test strip 5.0 5.0-7.5 [facility] ([facility]) Ua Specific [place] Laboratory test result 1.003-1.030 [facility] ([facility]) Bilirubin.total [Presence] in Urine by Test strip Laboratory test res ult [facility] ([facility]) Urobilinogen [Mass/volume] in Urine by Test strip 0.2 E.U./dL 0.0-1.0 [facility] ([facility]) ID Date Data Source [id number] 07/14/2020 03:07:00 PM EDT [facility] ([facility]) Name Value Range Interpretation Code Description Data Tashia rce(s) Supporting Document(s) Glucose [Presence] in Urine Laboratory test result [facility] ([facility]) Protein [Presence] in Urine by Test strip 30 mg/dL [facility] ([facility]) Ua Nitrite Laboratory test result [facility] ([facility]) Ua Leuko Laboratory test result [facility] ([facility] [place]) Blood [Presence] in Urine by Visual Laboratory test result [facility] ([facility] [place]) Color of Urine Laboratory test result [facility] ([facility] [place]) Clarity of Urine Laboratory test result [facility] ([facility] [place]) Ketones [Presence] in Urine by Test strip Laboratory test result [facility] ([facility]) pH of Urine by Test strip 5.0 5.0-7.5 [facility] ([facility]) Ua Specific [place] Laboratory test result 1.003-1.030 [facility] ([facility]) Bilirubin.total [Presence] in Urine by Test strip Laboratory test res ult [facility] ([facility]) Urobilinogen [Mass/volume] in Urine by Test strip 0.2 E.U./dL 0.0-1.0 [facility] ([facility]) ID Date Data Source [id number] 07/04/2020 12:00:00 AM EDT eCW1 ([facility]) Name Value Range Interpretation Code Description Data Tashia rce(s) Supporting Document(s) Hemoglobin A1c/Hemoglobin.total in Blood 6.6 HEMOGLOBIN A1c eCW1 ([facility]) ID Date Data Source LIPID PANEL (CARDIAC RISK) 07/04/2020 12:00:00 AM EDT eCW1 ( [facility]) Name Value Range Interpretation Code Description Data Tashia rce(s) Supporting Document(s) Cholesterol [Moles/volume] in Serum or Plasma 156 <200 CHOLESTEROL LEVEL eCW1 ([facility]) Triglyceride [Mass/volume] in Serum or Plasma by calculation 92 <150 TRIGLYCERIDES LEVEL eCW1 ([facility]) Cholesterol in LDL [Mass/volume] in Serum or Plasma by calculation 65 <100 LDL CHOLESTEROL eCW1 ([facility]) Cholesterol in HDL [Moles/volume] in Serum or Plasma 73 >40 HDL CHOLESTEROL eCW1 ([facility]) 83 NON-HDL-C eCW1 ([facility]) 2.136 <5 CHOLESTEROL RISK RATIO eCW1 ([facility]) ID Date Data Source IRON (FE) 05/26/2020 12:00:00 AM EDT eCW1 ([facility]) Name Value Range Interpretation Code Description Data Tashia rce(s) Supporting Document(s) 46 50-170 eCW1 ([facility]) ID Date Data Source CBC with Auto Differential 05/26/2020 12:00:00 AM EDT eCW1 ( [facility]) Name Value Range Interpretation Code Description Data Tashia rce(s) Supporting Document(s) 33.8 36.0-47.0 eCW1 ([facility]) 10.8 12.0-15.5 eCW1 ([facility]) 7.7 4.0-10.0 eCW1 ([facility]) 89.9 80.0-96.0 eCW1 ([facility]) 3.76 4.00-5.40 eCW1 ([facility]) 14.1 11.5-14.5 eCW1 ([facility]) 32.0 32.0-36.5 eCW1 ([facility]) 28.7 27.0-33.0 eCW1 ([facility]) 343 150-450 eCW1 ([facility]) 4.7 0.0-3.0 eCW1 ([facility]) 32.1 24.0-44.0 eCW1 ([facility]) 6.1 2.0-8.0 eCW1 ([facility]) 55.9 36.0-66.0 eCW1 ([facility]) 0.0 0-0 eCW1 ([facility]) 4.3 1.5-8.5 eCW1 ([facility]) 0.4 0-3.0 eCW1 ([facility]) 0.8 0.0-1.0 eCW1 ([facility]) 0.1 0.0-0.2 eCW1 ([facility]) 2.5 1.5-5.0 eCW1 ([facility]) 0.5 0.0-0.8 eCW1 ([facility]) 0.4 0.0-0.5 eCW1 ([facility]) ID Date Data Source [id number] 05/12/2020 12:00:00 AM EST eCW1 ([facility]) Name Value Range Interpretation Code Description Data Tashia rce(s) Supporting Document(s) Microalbumin/Creatinine [Ratio] in Urine 8.9 0.0-30.0 eCW1 ([facility]) Albumin/Creatinine [Mass Ratio] in Urine 9.8 eCW1 ([facility]) Microalbumin/Creatinine [Mass Ratio] in Urine 109.0 eCW1 ([facility]) ID Date Data Source [id number] 04/29/2020 06:29:00 AM EST [facility] Name Value Range Interpretation Code Description Data Tashia rce(s) Supporting Document(s) SARS-CoV-2 (COVID 19) NEGATIVE - SARS-CoV-2 (COVID19) [facility] This lab was ordered by [facility] a nd reported by [facility]. ID Date Data Source [id number] 04/09/2020 10:42:00 AM EST [facility] [employer] Run: 04/09/20 1043 INTERFACED REPORT Name: Trini Jiang Age/Sex: 64/F Location: [facility] Acct: [id number] Unit: [id number] Status: REG REF Room/Bed: Re04/07/20 Disch: Att Dr: Monica Bal MD Specimen #: [id number] Ordered : 04/07/2003/27/1856 Collected : 04/07/2003/27/1329 By: [...] rce(s) Supporting Document(s) ID Date Data Source [id number] 04/07/2020 01:30:00 PM EST [facility] ([facility]) Name Value Range Interpretation Code Description Data Tashia rce(s) Supporting Document(s) Glucose [Presence] in Urine Laboratory test result [facility] ([facility] [place]) Ua Nitrite Laboratory test result [facility] ([facility]) Protein [Presence] in Urine by Test strip Laboratory test result [facility] ([facility]) Ua Leuko Laboratory test result [facility] ([facility]) Blood [Presence] in Urine by Visual Laboratory test result [facility] ([facility]) Color of Urine Laboratory test result [facility] ([facility]) Ketones [Presence] in Urine by Test strip Laboratory test result [facility] ([facility]) Clarity of Urine Laboratory test result [facility] ([facility]) pH of Urine by Test strip 5.0 5.0-7.5 [facility] ([facility]) Ua Specific [place] 1.025 1.003-1.030 MEDE NT ([facility]) Bilirubin.total [Presence] in Urine by Test strip Laboratory test res ult [facility] ([facility]) Urobilinogen [Mass/volume] in Urine by Test strip 0.2 E.U./dL 0.0-1.0 [facility] ([facility] [place]) ID Date Data Source [id number] 04/07/2020 01:30:00 PM EST [facility] ([facility]) Name Value Range Interpretation Code Description Data Tashia rce(s) Supporting Document(s) Bacteria identified in Urine by Culture Laboratory test result [facility] ([facility]) <content>Run: 04/09/20 1043 INTERFACED REPORT</content>
<content> ntent>Name: Trini Jiang Age/Sex: 64/F Location: [facility]</content>
<content>Acct: [id number] Unit: [id number] Status: REG REF Room/Bed:</content>
<content>Re04/07/20 Disch: Att Dr: Monica Bal MD</content>
<content> </content>
<content></content>
<content>Specimen #: [id number] Ordered : 04/07/2003/27/1856</content>
<content>Collected : 04/07/2003/27/1329 By: [...] REPORT </content>
<content></content> ID Date Data Source [id number] 04/07/2020 01:23:00 PM EST [facility] ([facility]) Name Value Range Interpretation Code Description Data Tashia rce(s) Supporting Document(s) Glucose [Presence] in Urine Laboratory test result [facility] ([facility]) Protein [Presence] in Urine by Test strip Laboratory test result [facility] ([facility]) Ua Leuko Laboratory test result ME DENT ([facility]) Ua Nitrite Laboratory test result ME D[facility] ([facility]) Color of Urine Laboratory test result [facility] ([facility]) Blood [Presence] in Urine by Visual Laboratory test result [facility] ([facility]) Ketones [Presence] in Urine by Test strip Laboratory test result [facility] ([facility]) Clarity of Urine Laboratory test result [facility] ([facility]) Ua Specific [place] Laboratory test result 1.003-1.030 [facility] ([facility]) pH of Urine by Test strip 5.0 5.0-7.5 [facility] ([facility]) Urobilinogen [Mass/volume] in Urine by Test strip 0.2 E.U./dL 0.0-1.0 [facility] ([facility]) Bilirubin.total [Presence] in Urine by Test strip Laboratory test res ult [facility] ([facility]) ID Date Data Source [id number] 03/26/2020 12:00:00 AM EST MARILIA ([facility]) Name Value Range Interpretation Code Description Data Tashia rce(s) Supporting Document(s) ID Date Data Source [id number] 03/26/2020 12:00:00 AM EST MARILIA ([facility]) Name Value Range Interpretation Code Description Data Tashia rce(s) Supporting Document(s) SARS-CoV-2 (COVID-19) RNA [Presence] in Respiratory specimen by PHANI with probe detection negative negative Sars-cov-2 [place] ([facility]) ID Date Data Source [id number] 03/26/2020 12:00:00 AM EST MARIL[facility] ([facility]) Name Value Range Interpretation Code Description Data Tashia rce(s) Supporting Document(s) ID Date Data Source [id number] 03/26/2020 12:00:00 AM EST MARIL[facility] ([facility]) Name Value Range Interpretation Code Description Data Tashia rce(s) Supporting Document(s) SARS-CoV-2 (COVID-19) RNA [Presence] in Respiratory specimen by PHANI with probe detection negative negative Sars-cov-2 [place] ([facility]) ID Date Data Source [id number] 03/26/2020 12:00:00 AM EST [facility] Name Value Range Interpretation Code Description Data Tashia rce(s) Supporting Document(s) SARS-CoV-2 NEGATIVE [facility] This lab was ordered by [facility]-COVID19 and reported by [employer]. ID Date Data Source [id number] 03/26/2020 12:00:00 AM EST [facility] ([facility]) Name Value Range Interpretation Code Description Data Tashia rce(s) Supporting Document(s) ID Date Data Source [id number] 03/26/2020 12:00:00 AM EST [facility] ([facility]) Name Value Range Interpretation Code Description Data Tashia rce(s) Supporting Document(s) SARS-CoV-2 (COVID-19) RNA [Presence] in Respiratory specimen by PHANI with probe detection negative negative Sars-cov-2 [place] ([facility]) ID Date Data Source [id number] 03/26/2020 12:00:00 AM EST [facility] ([facility]) Name Value Range Interpretation Code Description Data Tashia rce(s) Supporting Document(s) ID Date Data Source [id number] 03/26/2020 12:00:00 AM EST [place] ([facility]) Name Value Range Interpretation Code Description Data Tashia rce(s) Supporting Document(s) SARS-CoV-2 (COVID-19) RNA [Presence] in Respiratory specimen by PHANI with probe detection negative negative Sars-cov-2 [place] ([facility]) ID Date Data Source [id number] 03/26/2020 12:00:00 AM EST [place] ([facility]) Name Value Range Interpretation Code Description Data Tashia rce(s) Supporting Document(s) ID Date Data Source [id number] 03/26/2020 12:00:00 AM EST [place] ([facility]) Name Value Range Interpretation Code Description Data Tashia rce(s) Supporting Document(s) SARS-CoV-2 (COVID-19) RNA [Presence] in Respiratory specimen by PHANI with probe detection negative negative Sars-cov-2 [facility] ([facility]) ID Date Data Source [id number] 03/26/2020 12:00:00 AM EST [facility] ([facility]) Name Value Range Interpretation Code Description Data Tashia rce(s) Supporting Document(s) ID Date Data Source [id number] 03/26/2020 12:00:00 AM EST [facility] ([facility]) Name Value Range Interpretation Code Description Data Tashia rce(s) Supporting Document(s) SARS-CoV-2 (COVID-19) RNA [Presence] in Respiratory specimen by PHANI with probe detection negative negative Sars-cov-2 [place] ([facility]) ID Date Data Source [id number] 03/26/2020 12:00:00 AM EST [facility] ([facility]) Name Value Range Interpretation Code Description Data Tashia rce(s) Supporting Document(s) ID Date Data Source [id number] 03/26/2020 12:00:00 AM EST [facility] ([facility]) Name Value Range Interpretation Code Description Data Tashia rce(s) Supporting Document(s) SARS-CoV-2 (COVID-19) RNA [Presence] in Respiratory specimen by PHANI with probe detection negative negative Sars-cov-2 [facility] ([facility]) ID Date Data Source [id number] 03/12/2020 10:08:00 AM EST MED[facility] ([facility], ) Name Value Range Interpretation Code Description Data Tashia rce(s) Supporting Document(s) PDFReport Laboratory test result MEDENT ([facility], ) FVC-Pred 3.47 L MED[facility] ([facility]) FVC-%Pred-Pre 73 L MED[facility] ([facility], ) FVC-Pre 2.54 L MED[facility] ([facility]) FVC-LLN 2.73 L [facility] ([facility]) Fev1-%Pred-Pre 72 L MED[facility] ([facility]) Fev1-Pre 1.92 L MED[facility] ([facility]) Fev1-Pred 2.67 L [facility] ([facility]) Fev6-Pred 3.34 L [facility] ([facility]) Fev1-LLN 2.04 L [facility] ([facility]) Fev6-%Pred-Pre 75 L [facility] ([facility]) Hvo0nyn-Xmhx 77 % MED[facility] ([facility]) Fev6-Pre 2.51 L MED[facility] ([facility]) Fev6-LLN 2.62 L [facility] ([facility]) Xmm8nrz-Zyc 76 % MED[facility] ([facility]) Vrf4his-%Pred-Pre 97 % MED[facility] ([facility]) Syg5mjz-PUG 68 % [facility] ([facility]) Tje7cpx-%Pred-Pre 102 % [facility] ([facility]) Ggn9mcg-Vyif 96 % [facility] ([facility]) Pyj6omo-Dse 99 % [facility] ([facility]) FEFMax-Pre 5.72 L/E/sec MED[facility] ([facility]) FEFMax-Pred 6.43 L/E/sec MED[facility] ([facility]) FEFMax-%Pred-Pre 88 L/E/sec MED[facility] ([facility]) Agl6239-Dggh 2.34 L/E/sec MED[facility] ([facility]) FEFMax-LLN 4.61 L/E/sec MED[facility] ([facility]) Iqh7700-Mqj 1.46 L/E/sec MED[facility] ([facility]) Gqn8189-EAZ 1.02 L/E/sec [facility] ([facility]) ExpTime-Pre 7.33 sec [facility] ([facility]) Uxd3423-%Pred-Pre 62 L/E/sec MED[facility] ([facility]) Zns2jpn0-Yel 76 % [facility] ([facility]) Rep5eeq9-%Pred-Pre 95 % [facility] ([facility]) Inj3jlo2-Dybg 80 % [facility] ([facility]) Luh0nzm5-DKL 71 % [facility] ([facility]) ID Date Data Source [id number] 01/10/2020 02:03:00 PM EST [facility] ([facility] [place]) Name Value Range Interpretation Code Description Data Tashia rce(s) Supporting Document(s) Bacteria identified in Vaginal fluid by Aerobe culture Laborator y test result [facility] ([facility] [place]) ID Date Data Source [id number] 01/11/2020 11:49:00 AM EST [facility] Name Value Range Interpretation Code Description Data Tashia rce(s) Supporting Document(s) LINDA BY DNA PROBE NEGATIVE NEGATIVE [facility] GARDNERELLA BY DNA PROBE POSITIVE NEGATIVE A [facility] TRICHOMONAS BY DNA PROBE NEGATIVE NEGATIVE [facility] TESTING PERFORMED BY NUCLEIC ACID HYBRI DIZATION ID Date Data Source [id number] 01/10/2020 02:03:00 PM EST [facility] ([facility] [place]) Name Value Range Interpretation Code Description Data Tashia rce(s) Supporting Document(s) Gardnerella By Dna Probe Laboratory test result Abnormal (applies to non- numeric results) [facility] ([facility] [place]) Linda sp rRNA [Presence] in Vaginal fluid by DNA probe Lab oratory test result [facility] ([facility] [place]) Trichomonas vaginalis rRNA [Presence] in Genital speci men by DNA probe Laboratory test result [facility] ([facility] [place]) TESTING PERFORMED BY NUCLEIC ACID HYBRID IZATION ID Date Data Source [id number] 01/12/2020 11:21:00 AM EST [facility] Run: 01/12/20 1121 INTERFACED REPORT Name: Trini Jiang Age/Sex: 64/F Location: [facility] Acct: [id number] Unit: [id number] Status: REG REF Room/Bed: Re01/10/20 Disch: Att Dr: Amira Garg Specimen #: [id number] Ordered : 01/10/2007/24/1930 Collected : 01/10/2007/24/1401 By: [...] rce(s) Supporting Document(s) ID Date Data Source [id number] 01/10/2020 02:02:00 PM EST [facility] ([facility] [place]) Name Value Range Interpretation Code Description Data Tashia rce(s) Supporting Document(s) Bacteria identified in Urine by Culture Laboratory test result [facility] ([facility] [place]) <content> --------</content>
<content>Run: 01/12/20 1121 INTERFACED REPORT</content>
<content> </content>
<content>Name: Trini Jiang Age/Sex: 64/F Location: [facility]</content>
<content>Acct: [id number] Unit: [id number] Status: REG REF Room/Bed:</content>
<content>Re01/10/20 Disch: Junior Dr: Amira Garg</content>
<content> </content>
<content></content>
<content>Specimen #: [id number] Ordered : 01/10/2007/24/1930</content>
<content>Collected : 01/10/2007/24/1401 By: [...] REPORT </content>
<content></content> ID Date Data Source [id number] 01/10/2020 02:01:00 PM EST [facility] ([facility] [place]) Name Value Range Interpretation Code Description Data Tashia rce(s) Supporting Document(s) Glucose [Presence] in Urine Laboratory test result [facility] ([facility] [place]) Protein [Presence] in Urine by Test strip Laboratory test result [facility] ([facility] [place]) Ua Nitrite Laboratory test result [facility] ([facility] [place]) Ua Leuko Laboratory test result [facility] ([facility] [place]) Blood [Presence] in Urine by Visual Laboratory test result [facility] ([facility] [place]) Ketones [Presence] in Urine by Test strip 15 mg/dL [facility] ([facility] [place]) Color of Urine Laboratory test result [facility] ([facility] [place]) pH of Urine by Test strip 6.5 5.0-7.5 [facility] ([facility] [place]) Ua Specific [place] 1.020 1.003-1.030 MEDE NT ([facility] [place]) Clarity of Urine Laboratory test result [facility] ([facility] [place]) Urobilinogen [Mass/volume] in Urine by Test strip 0.2 E.U./dL 0.0-1.0 [facility] ([facility]) Bilirubin.total [Presence] in Urine by Test strip Laboratory test res ult [facility] ([facility]) ID Date Data Source [id number] 01/10/2020 01:44:00 PM EST [facility] ([facility]) Name Value Range Interpretation Code Description Data Tashia rce(s) Supporting Document(s) Glucose [Presence] in Urine Laboratory test result [facility] ([facility] [place]) Ua Nitrite Laboratory test result [facility] ([facility] [place]) Protein [Presence] in Urine by Test strip Laboratory test result [facility] ([facility] [place]) Ua Leuko Laboratory test result [facility] ([facility] [place]) Blood [Presence] in Urine by Visual Laboratory test result [facility] ([facility] [place]) Ketones [Presence] in Urine by Test strip 15 mg/dL [facility] ([facility]) Clarity of Urine Laboratory test result [facility] ([facility]) Color of Urine Laboratory test result [facility] ([facility]) Ua Specific [place] 1.025 1.003-1.030 MEDE NT ([facility]) pH of Urine by Test strip 6.0 5.0-7.5 [facility] ([facility]) Urobilinogen [Mass/volume] in Urine by Test strip 0.2 E.U./dL 0.0-1.0 [facility] ([facility]) Bilirubin.total [Presence] in Urine by Test strip Laboratory test res ult [facility] ([facility]) Procedure Social History Code Duration Value Status Description Data Source(s ) Smoking 01/22/2021 12:00:00 AM EST Never Smoker completed Never S moker eCW1 ([facility]) Smoking 01/22/2021 12:00:00 AM EST Never Smoker completed Never S moker eCW1 ([facility]) Smoking 01/22/2021 12:00:00 AM EST Never Smoker completed Never S moker eCW1 ([facility]) Smoking 01/22/2021 12:00:00 AM EST Never Smoker completed Never S moker eCW1 ([facility]) Smoking 01/22/2021 12:00:00 AM EST Never Smoker completed Never S moker eCW1 ([facility]) Smoking 12/20/2020 12:00:00 AM EDT Never Smoker completed Never S moker eCW1 ([facility]) Smoking 12/20/2020 12:00:00 AM EDT Never Smoker completed Never S moker eCW1 ([facility]) Smoking 12/20/2020 12:00:00 AM EDT Never Smoker completed Never S moker eCW1 ([facility]) Smoking 12/20/2020 12:00:00 AM EDT Never Smoker completed Never S moker eCW1 ([facility]) Smoking 12/20/2020 12:00:00 AM EDT Never Smoker completed Never S moker eCW1 ([facility]) Smoking 12/20/2020 12:00:00 AM EDT Never Smoker completed Never S moker eCW1 ([facility]) Smoking 12/20/2020 12:00:00 AM EDT Never Smoker completed Never S moker eCW1 ([facility]) Smoking 11/14/2020 12:00:00 AM EDT Never Smoker completed Never S moker eCW1 ([facility]) Smoking 11/14/2020 12:00:00 AM EDT Never Smoker completed Never S moker eCW1 ([facility]) Smoking 11/14/2020 12:00:00 AM EDT Never Smoker completed Never S moker eCW1 ([facility]) Smoking 11/14/2020 12:00:00 AM EDT Never Smoker completed Never S moker eCW1 ([facility]) Smoking 11/14/2020 12:00:00 AM EDT Never Smoker completed Never S moker eCW1 ([facility]) Smoking 11/14/2020 12:00:00 AM EDT Never Smoker completed Never S moker eCW1 ([facility]) Smoking 11/14/2020 12:00:00 AM EDT Never Smoker completed Never S moker eCW1 ([facility]) Smoking 11/14/2020 12:00:00 AM EDT Never Smoker completed Never S moker eCW1 ([facility]) Smoking 11/14/2020 12:00:00 AM EDT Never Smoker completed Never S moker eCW1 ([facility]) Smoking 11/14/2020 12:00:00 AM EDT Never Smoker completed Never S moker eCW1 ([facility]) Smoking 11/14/2020 12:00:00 AM EDT Never Smoker completed Never S moker eCW1 ([facility]) Smoking 11/14/2020 12:00:00 AM EDT Never Smoker completed Never S moker eCW1 ([facility]) Smoking 10/21/2020 12:00:00 AM EDT Never Smoker completed Never S moker eCW1 ([facility]) Smoking 10/21/2020 12:00:00 AM EDT Never Smoker completed Never S moker eCW1 ([facility]) Smoking 10/21/2020 12:00:00 AM EDT Never Smoker completed Never S moker eCW1 ([facility]) Smoking 10/21/2020 12:00:00 AM EDT Never Smoker completed Never S moker eCW1 ([facility]) Smoking 10/21/2020 12:00:00 AM EDT Never Smoker completed Never S moker eCW1 ([facility]) Smoking 10/08/2020 12:00:00 AM EDT Patient has never smoked co mpleted Patient has never smoked [facility] ([facility], ) Smoking 09/22/2020 12:00:00 AM EDT Never Smoker completed Never S moker eCW1 ([facility]) Smoking 09/22/2020 12:00:00 AM EDT Never Smoker completed Never S moker eCW1 ([facility]) Smoking 08/11/2020 12:00:00 AM EDT Never Smoked Cigarettes com pleted Never Smoked Cigarettes [facility] ([facility] [place]) Smoking 07/04/2020 12:00:00 AM EDT Never Smoker completed Never S moker eCW1 ([facility]) Smoking 07/04/2020 12:00:00 AM EDT Never Smoker completed Never S moker eCW1 ([facility]) Smoking 07/04/2020 12:00:00 AM EDT Never Smoker completed Never S moker eCW1 ([facility]) Smoking 07/04/2020 12:00:00 AM EDT Never Smoker completed Never S moker eCW1 ([facility]) Smoking 07/04/2020 12:00:00 AM EDT Never Smoker completed Never S moker eCW1 ([facility]) Smoking 07/04/2020 12:00:00 AM EDT Never Smoker completed Never S moker eCW1 ([facility]) Smoking 07/04/2020 12:00:00 AM EDT Never Smoker completed Never S moker eCW1 ([facility]) Smoking 07/04/2020 12:00:00 AM EDT Never Smoker completed Never S moker eCW1 ([facility]) Smoking 07/04/2020 12:00:00 AM EDT Never Smoker completed Never S moker eCW1 ([facility]) Smoking 07/04/2020 12:00:00 AM EDT Never Smoker completed Never S moker eCW1 ([facility]) Smoking 07/04/2020 12:00:00 AM EDT Never Smoker completed Never S moker eCW1 ([facility]) Smoking 05/26/2020 12:00:00 AM EDT Never Smoker completed Never S moker eCW1 ([facility]) Smoking 05/26/2020 12:00:00 AM EDT Never Smoker completed Never S moker eCW1 ([facility]) Smoking 05/26/2020 12:00:00 AM EDT Never Smoker completed Never S moker eCW1 ([facility]) Smoking 05/26/2020 12:00:00 AM EDT Never Smoker completed Never S moker eCW1 ([facility]) Smoking 05/26/2020 12:00:00 AM EDT Never Smoker completed Never S moker eCW1 ([facility]) Smoking 05/26/2020 12:00:00 AM EDT Never Smoker completed Never S moker eCW1 ([facility]) Smoking 05/26/2020 12:00:00 AM EDT Never Smoker completed Never S moker eCW1 ([facility]) Smoking 05/26/2020 12:00:00 AM EDT Never Smoker completed Never S moker eCW1 ([facility]) Smoking 05/26/2020 12:00:00 AM EDT Never Smoker completed Never S moker eCW1 ([facility]) Smoking 05/26/2020 12:00:00 AM EDT Never Smoker completed Never S moker eCW1 ([facility]) Smoking 05/26/2020 12:00:00 AM EDT Never Smoker completed Never S moker eCW1 ([facility]) Smoking 05/12/2020 12:00:00 AM EST Never Smoker completed Never S moker eCW1 ([facility]) Smoking 05/12/2020 12:00:00 AM EST Never Smoker completed Never S moker eCW1 ([facility]) Smoking 05/12/2020 12:00:00 AM EST Never Smoker completed Never S moker eCW1 ([facility]) Vital Signs ID Date Data Source UNK Name Value Range Interpretation Code Description Data Source(s) Respiratory rate 18 /min 18 /min eCW1 ([facility]) Heart rate 101 /min 101 /min eCW1 ([facility]) Body mass index (BMI) [Ratio] 34.34 kg/m2 34.34 kg/m2 eCW1 ([facility]) Body height 66 [in_i] 66 [in_i] eCW1 ([facility]) Body weight 96.53 kg 96.53 kg W1 ([facility]) Body weight 212.8 [lb_av] 212.8 [lb_av] eCW1 ([facility]) Diastolic blood pressure 78 mm[Hg] 78 mm[Hg] eCW1 ([facility]) Systolic blood pressure 118 mm[Hg] 118 mm[Hg] e CW1 ([facility]) Body temperature 97.8 [degF] 97.8 [degF] eCW1 ( [facility]) Body temperature 96.9 [degF] 96.9 [degF] eCW1 ( [facility]) Respiratory rate 18 /min 18 /min eCW1 ([facility]) Heart rate 88 /min 88 /min eCW1 ([facility]) Body mass index (BMI) [Ratio] 35.80 kg/m2 35.80 kg/m2 eCW1 ([facility]) Body height 66 [in_i] 66 [in_i] eCW1 ([facility]) Body weight 100.61 kg 100.61 kg eCW1 ([facility]) Body weight 221.8 [lb_av] 221.8 [lb_av] eCW1 ([facility]) Diastolic blood pressure 78 mm[Hg] 78 mm[Hg] eCW1 ([facility]) Systolic blood pressure 122 mm[Hg] 122 mm[Hg] e CW1 ([facility]) Body temperature 96.9 [degF] 96.9 [degF] eCW1 ( [facility]) Respiratory rate 18 /min 18 /min eCW1 ([facility]) Heart rate 88 /min 88 /min eCW1 ([facility]) Body mass index (BMI) [Ratio] 35.80 kg/m2 35.80 kg/m2 eCW1 ([facility]) Body height 66 [in_i] 66 [in_i] eCW1 ([facility]) Body weight 100.61 kg 100.61 kg eCW1 ([facility]) Body weight 221.8 [lb_av] 221.8 [lb_av] eCW1 ([facility]) Diastolic blood pressure 78 mm[Hg] 78 mm[Hg] eCW1 ([facility]) Systolic blood pressure 122 mm[Hg] 122 mm[Hg] e CW1 ([facility]) Body temperature 97.4 [degF] 97.4 [degF] eCW1 ( [facility]) Respiratory rate 18 /min 18 /min eCW1 ([facility]) Heart rate 105 /min 105 /min eCW1 ([facility]) Body mass index (BMI) [Ratio] 36.44 kg/m2 36.44 kg/m2 eCW1 ([facility]) Body height 66 [in_i] 66 [in_i] eCW1 ([facility]) Body weight 102.42 kg 102.42 kg eCW1 ([facility]) Body weight 225.8 [lb_av] 225.8 [lb_av] eCW1 ([facility]) Diastolic blood pressure 62 mm[Hg] 62 mm[Hg] eCW1 ([facility]) Systolic blood pressure 128 mm[Hg] 128 mm[Hg] e CW1 ([facility]) Body surface area Derived from formula 2.11 m2 2.11 m2 MEDENT ([facility]) Body weight 103.421 kg 103.421 kg MEDENT ([facility] [place] body weight 130 [lb_av] 130 [lb_av] MEDEN T ([facility]) Body mass index (BMI) [Ratio] 36.8 kg/m2 36.8 k g/m2 [facility] ([facility]) Body weight 228.00 [lb_av] 228.00 [lb_av] MEDEN T ([facility]) Body height 66 [in_i] 66 [in_i] MEDENT ([facility], ) 5'6" Diastolic blood pressure 64 mm[Hg] 64 mm[Hg] MEDENT ([facility]) Systolic blood pressure 112 mm[Hg] 112 mm[Hg] M EDENT ([facility]) Body height 66 [in_i] 66 [in_i] MARILIA ([facility]) Diastolic blood pressure 74 mm[Hg] 74 mm[Hg] MARILIA ([facility]) Body weight 224 [lb_av] 224 [lb_av] MARILIA ([facility]) Systolic blood pressure 128 mm[Hg] 128 mm[Hg] A THENA ([facility]) Body mass index (BMI) [Ratio] 36.2 kg/m2 36.2 k g/m2 MARILIA ([facility]) Body weight 224 [lb_av] 224 [lb_av] MARILIA ([facility]) Systolic blood pressure 128 mm[Hg] 128 mm[Hg] A THENA ([facility]) Body mass index (BMI) [Ratio] 36.2 kg/m2 36.2 k g/m2 MARILIA ([facility]) Body height 66 [in_i] 66 [in_i] MARILIA ([facility]) Diastolic blood pressure 74 mm[Hg] 74 mm[Hg] MARILIA ([facility]) Body weight 224 [lb_av] 224 [lb_av] MARILIA ([facility]) Systolic blood pressure 128 mm[Hg] 128 mm[Hg] A THENA ([facility]) Body mass index (BMI) [Ratio] 36.2 kg/m2 36.2 k g/m2 MARILIA ([facility]) Body height 66 [in_i] 66 [in_i] MARILIA ([facility]) Diastolic blood pressure 74 mm[Hg] 74 mm[Hg] MARILIA ([facility]) Body surface area Derived from formula 2.10 m2 2.10 m2 [facility] ([facility]) Body weight 101.606 kg 101.606 kg [facility] ([facility]) [place] body weight 130 [lb_av] 130 [lb_av] MEDEN T ([facility]) Body mass index (BMI) [Ratio] 36.2 kg/m2 36.2 k g/m2 [facility] ([facility]) Body weight 224.00 [lb_av] 224.00 [[facility]_av] [facility] Body height 66 [in_i] 66 [in_i] [facility] ([facility]) 5'6" Oxygen saturation in Arterial blood by Pulse oximetry 96 % 96 % [facility] ([facility]) Heart rate 95 /min 95 /min [facility] ([facility]) Diastolic blood pressure 84 mm[Hg] 84 mm[Hg] [facility] ([facility]) Systolic blood pressure 132 mm[Hg] 132 mm[Hg] M EDENT ([facility]) Diastolic blood pressure 72 mm[Hg] 72 mm[Hg] eCW1 ([facility]) Systolic blood pressure 116 mm[Hg] 116 mm[Hg] e CW1 ([facility]) Body temperature 97.7 [degF] 97.7 [degF] eCW1 ( [facility]) Respiratory rate 18 /min 18 /min eCW1 ([facility]) Heart rate 91 /min 91 /min eCW1 ([facility]) Body mass index (BMI) [Ratio] 36.96 kg/m2 36.96 kg/m2 W1 ([facility]) Body height 66 [in_i] 66 [in_i] eCW1 ([facility]) Body weight 229 [lb_av] 229 [lb_av] eCW1 ([facility]) Systolic blood pressure 115 mm[Hg] 115 mm[Hg] A THENA ([facility]) Diastolic blood pressure 77 mm[Hg] 77 mm[Hg] MARILIA ([facility]) Systolic blood pressure 115 mm[Hg] 115 mm[Hg] A THENA ([facility]) Diastolic blood pressure 77 mm[Hg] 77 mm[Hg] MARILIA ([facility]) Systolic blood pressure 115 mm[Hg] 115 mm[Hg] A THENA ([facility]) Diastolic blood pressure 77 mm[Hg] 77 mm[Hg] MARILIA ([facility]) Systolic blood pressure 115 mm[Hg] 115 mm[Hg] A THENA ([facility]) Diastolic blood pressure 77 mm[Hg] 77 mm[Hg] MARILIA ([facility]) Systolic blood pressure 115 mm[Hg] 115 mm[Hg] A THENA ([facility]) Diastolic blood pressure 77 mm[Hg] 77 mm[Hg] MARILIA ([facility]) Body mass index (BMI) [Ratio] 35.2 kg/m2 35.2 k g/m2 MEDENT ([facility]) Body weight 218.00 [lb_av] 218.00 [lb_av] MEDEN T ([facility]) Body height 66 [in_i] 66 [in_i] MEDENT ([facility]) 5'6" Diastolic blood pressure 70 mm[Hg] 70 mm[Hg] eCW1 ([facility]) Systolic blood pressure 122 mm[Hg] 122 mm[Hg] e CW1 ([facility]) Body temperature 97.1 [degF] 97.1 [degF] eCW1 ( [facility]) Respiratory rate 20 /min 20 /min eCW1 ([facility]) Heart rate 94 /min 94 /min eCW1 ([facility]) Body mass index (BMI) [Ratio] 39.02 kg/m2 39.02 kg/m2 eCW1 ([facility]) Body height 66 [in_i] 66 [in_i] eCW1 ([facility]) Body weight 241.8 [lb_av] 241.8 [lb_av] eCW1 ([facility]) Diastolic blood pressure 68 mm[Hg] 68 mm[Hg] eCW1 ([facility]) Systolic blood pressure 110 mm[Hg] 110 mm[Hg] e CW1 ([facility]) Body temperature 98.3 [degF] 98.3 [degF] eCW1 ( [facility]) Respiratory rate 18 /min 18 /min eCW1 ([facility]) Heart rate 96 /min 96 /min eCW1 ([facility]) Body mass index (BMI) [Ratio] 36.86 kg/m2 36.86 kg/m2 eCW1 ([facility]) Body height 66 [in_i] 66 [in_i] eCW1 ([facility]) Body weight 228.4 [lb_av] 228.4 [lb_av] eCW1 ([facility]) Diastolic blood pressure 78 mm[Hg] 78 mm[Hg] eCW1 ([facility]) Systolic blood pressure 102 mm[Hg] 102 mm[Hg] e CW1 ([facility]) Body temperature 97.8 [degF] 97.8 [degF] eCW1 ( [facility]) Respiratory rate 18 /min 18 /min eCW1 ([facility]) Heart rate 95 /min 95 /min eCW1 ([facility]) Body mass index (BMI) [Ratio] 36.96 kg/m2 36.96 kg/m2 eCW1 ([facility]) Body height 66 [in_i] 66 [in_i] eCW1 ([facility]) Body weight 229 [lb_av] 229 [lb_av] eCW1 ([facility]) Systolic blood pressure 134 mm[Hg] 134 mm[Hg] A THENA ([facility]) Diastolic blood pressure 85 mm[Hg] 85 mm[Hg] MARILIA ([facility]) Systolic blood pressure 134 mm[Hg] 134 mm[Hg] A THENA ([facility]) Diastolic blood pressure 85 mm[Hg] 85 mm[Hg] MARILIA ([facility]) Systolic blood pressure 134 mm[Hg] 134 mm[Hg] A THENA ([facility]) Diastolic blood pressure 85 mm[Hg] 85 mm[Hg] MARILIA ([facility]) Systolic blood pressure 134 mm[Hg] 134 mm[Hg] A THENA ([facility]) Diastolic blood pressure 85 mm[Hg] 85 mm[Hg] MARILIA ([facility]) Systolic blood pressure 134 mm[Hg] 134 mm[Hg] A THENA ([facility]) Diastolic blood pressure 85 mm[Hg] 85 mm[Hg] MARILIA ([facility]) Systolic blood pressure 134 mm[Hg] 134 mm[Hg] A THENA ([facility]) Diastolic blood pressure 85 mm[Hg] 85 mm[Hg] MARILIA ([facility]) Body surface area Derived from formula 2.12 m2 2.12 m2 [facility] ([facility], ) Body weight 103.874 kg 103.874 kg [facility], ) [place] body weight 130 [lb_av] 130 [lb_av] MEDEN T ([facility], ) Body mass index (BMI) [Ratio] 37.0 kg/m2 37.0 k g/m2 [facility] ([facility], ) Body weight 229.00 [lb_av] 229.00 [lb_av] MEDEN T ([facility], ) Body height 66 [in_i] 66 [in_i] [facility] ([facility], ) 5'6" Oxygen saturation in Arterial blood by Pulse oximetry 98 % 98 % [facility] ([facility], ) Room Air Heart rate 88 /min 88 /min [facility] ([facility]) Diastolic blood pressure 76 mm[Hg] 76 mm[Hg] [facility] ([facility]) Systolic blood pressure 126 mm[Hg] 126 mm[Hg] [facility] Body surface area Derived from formula 2.12 m2 2.12 m2 [facility] ([facility]) Body weight 103.874 kg 103.874 kg [facility] ([facility]) [place] body weight 130 [lb_av] 130 [lb_av] MEDEN T ([facility]) Body mass index (BMI) [Ratio] 37.0 kg/m2 37.0 k g/m2 [facility] ([facility]) Body weight 229.00 [lb_av] 229.00 [lb_av] [facility] Body height 66 [in_i] 66 [in_i] [facility] ([facility]) 5'6" Oxygen saturation in Arterial blood by Pulse oximetry 98 % 98 % [facility] ([facility]) Room Air [place] body weight 130 [lb_av] 130 [lb_av] [facility] Body height 66 [in_i] 66 [in_i] [facility] ([facility]) 5'6" Patient Treatment Plan of Care Planned Activity Planned Date Details Description Data Source (s) Ondansetron 4 MG Disintegrating Oral Tablet 02/03/2021 12:00:00 AM EST eCW1 ([facility]) Ondansetron 4 MG Disintegrating Oral Tablet 02/03/2021 12:00:00 AM EST eCW1 ([facility]) celecoxib 200 MG Oral Capsule [Celebrex] 01/16/2021 12:00:00 AM EST eCW1 ([facility]) celecoxib 200 MG Oral Capsule [Celebrex] 01/16/2021 12:00:00 AM EST eCW1 ([facility]) celecoxib 200 MG Oral Capsule [Celebrex] 01/16/2021 12:00:00 AM EST eCW1 ([facility]) NITROFURANTOIN, MACROCRYSTALS 25 MG / Ni trofurantoin, Monohydrate 75 MG Oral Capsule [Macrobid] 11/17/2020 12:00:00 AM EDT eC W1 ([facility]) NITROFURANTOIN, MACROCRYSTALS 25 MG / Ni trofurantoin, Monohydrate 75 MG Oral Capsule [Macrobid] 11/17/2020 12:00:00 AM EDT eC W1 ([facility]) NITROFURANTOIN, MACROCRYSTALS 25 MG / Ni trofurantoin, Monohydrate 75 MG Oral Capsule [Macrobid] 11/17/2020 12:00:00 AM EDT eC W1 ([facility]) NITROFURANTOIN, MACROCRYSTALS 25 MG / Ni trofurantoin, Monohydrate 75 MG Oral Capsule [Macrobid] 11/17/2020 12:00:00 AM EDT eC W1 ([facility]) NITROFURANTOIN, MACROCRYSTALS 25 MG / Ni trofurantoin, Monohydrate 75 MG Oral Capsule [Macrobid] 11/17/2020 12:00:00 AM EDT eC W1 ([facility]) NITROFURANTOIN, MACROCRYSTALS 25 MG / Ni trofurantoin, Monohydrate 75 MG Oral Capsule [Macrobid] 11/17/2020 12:00:00 AM EDT eC W1 ([facility]) NITROFURANTOIN, MACROCRYSTALS 25 MG / Ni trofurantoin, Monohydrate 75 MG Oral Capsule [Macrobid] 11/17/2020 12:00:00 AM EDT eC W1 ([facility]) NITROFURANTOIN, MACROCRYSTALS 25 MG / Ni trofurantoin, Monohydrate 75 MG Oral Capsule [Macrobid] 11/17/2020 12:00:00 AM EDT eC W1 ([facility]) NITROFURANTOIN, MACROCRYSTALS 25 MG / Ni trofurantoin, Monohydrate 75 MG Oral Capsule [Macrobid] 11/17/2020 12:00:00 AM EDT eC W1 ([facility]) NITROFURANTOIN, MACROCRYSTALS 25 MG / Ni trofurantoin, Monohydrate 75 MG Oral Capsule [Macrobid] 11/17/2020 12:00:00 AM EDT eC W1 ([facility]) NITROFURANTOIN, MACROCRYSTALS 25 MG / Ni trofurantoin, Monohydrate 75 MG Oral Capsule [Macrobid] 11/17/2020 12:00:00 AM EDT eC W1 ([facility]) NITROFURANTOIN, MACROCRYSTALS 25 MG / Ni trofurantoin, Monohydrate 75 MG Oral Capsule [Macrobid] 11/17/2020 12:00:00 AM EDT eC W1 ([facility]) NITROFURANTOIN, MACROCRYSTALS 25 MG / Ni trofurantoin, Monohydrate 75 MG Oral Capsule [Macrobid] 11/17/2020 12:00:00 AM EDT eC W1 ([facility]) NITROFURANTOIN, MACROCRYSTALS 25 MG / Ni trofurantoin, Monohydrate 75 MG Oral Capsule [Macrobid] 11/17/2020 12:00:00 AM EDT eC W1 ([facility]) NITROFURANTOIN, MACROCRYSTALS 25 MG / Ni trofurantoin, Monohydrate 75 MG Oral Capsule [Macrobid] 11/17/2020 12:00:00 AM EDT eC W1 ([facility]) NITROFURANTOIN, MACROCRYSTALS 25 MG / Ni trofurantoin, Monohydrate 75 MG Oral Capsule [Macrobid] 11/17/2020 12:00:00 AM EDT eC W1 ([facility]) NITROFURANTOIN, MACROCRYSTALS 25 MG / Ni trofurantoin, Monohydrate 75 MG Oral Capsule [Macrobid] 11/17/2020 12:00:00 AM EDT eC W1 ([facility]) NITROFURANTOIN, MACROCRYSTALS 25 MG / Ni trofurantoin, Monohydrate 75 MG Oral Capsule [Macrobid] 11/17/2020 12:00:00 AM EDT eC W1 ([facility]) Mupirocin 0.02 MG/MG Topical Ointment 11/14/2020 12:00:00 AM EDT eCW1 ([facility]) ferric carboxymaltose 50 MG/ML Injectable Solution [In jectafer] 11/14/2020 12:00:00 AM EDT eCW1 ([facility]) ferric carboxymaltose 50 MG/ML Injectable Solution [In jectafer] 11/14/2020 12:00:00 AM EDT eCW1 ([facility]) Mupirocin 0.02 MG/MG Topical Ointment 11/14/2020 12:00:00 AM EDT eCW1 ([facility]) Mupirocin 0.02 MG/MG Topical Ointment 11/14/2020 12:00:00 AM EDT eCW1 ([facility]) ferric carboxymaltose 50 MG/ML Injectable Solution [In jectafer] 11/14/2020 12:00:00 AM EDT eCW1 ([facility]) Mupirocin 0.02 MG/MG Topical Ointment 11/14/2020 12:00:00 AM EDT eCW1 ([facility]) ferric carboxymaltose 50 MG/ML Injectable Solution [In jectafer] 11/14/2020 12:00:00 AM EDT eCW1 ([facility]) Mupirocin 0.02 MG/MG Topical Ointment 11/14/2020 12:00:00 AM EDT eCW1 ([facility]) ferric carboxymaltose 50 MG/ML Injectable Solution [In jectafer] 11/14/2020 12:00:00 AM EDT eCW1 ([facility]) Mupirocin 0.02 MG/MG Topical Ointment 11/14/2020 12:00:00 AM EDT eCW1 ([facility]) ferric carboxymaltose 50 MG/ML Injectable Solution [In jectafer] 11/14/2020 12:00:00 AM EDT eCW1 ([facility]) Mupirocin 0.02 MG/MG Topical Ointment 11/14/2020 12:00:00 AM EDT eCW1 ([facility]) ferric carboxymaltose 50 MG/ML Injectable Solution [In jectafer] 11/14/2020 12:00:00 AM EDT eCW1 ([facility]) Mupirocin 0.02 MG/MG Topical Ointment 11/14/2020 12:00:00 AM EDT eCW1 ([facility]) ferric carboxymaltose 50 MG/ML Injectable Solution [In jectafer] 11/14/2020 12:00:00 AM EDT eCW1 ([facility]) ferric carboxymaltose 50 MG/ML Injectable Solution [In jectafer] 11/14/2020 12:00:00 AM EDT eCW1 ([facility]) Mupirocin 0.02 MG/MG Topical Ointment 11/14/2020 12:00:00 AM EDT eCW1 ([facility]) ferric carboxymaltose 50 MG/ML Injectable Solution [In jectafer] 11/14/2020 12:00:00 AM EDT eCW1 ([facility]) Mupirocin 0.02 MG/MG Topical Ointment 11/14/2020 12:00:00 AM EDT eCW1 ([facility]) Mupirocin 0.02 MG/MG Topical Ointment 11/14/2020 12:00:00 AM EDT eCW1 ([facility]) ferric carboxymaltose 50 MG/ML Injectable Solution [In jectafer] 11/14/2020 12:00:00 AM EDT eCW1 ([facility]) ferric carboxymaltose 50 MG/ML Injectable Solution [In jectafer] 11/14/2020 12:00:00 AM EDT eCW1 ([facility]) Mupirocin 0.02 MG/MG Topical Ointment 11/14/2020 12:00:00 AM EDT eCW1 ([facility]) Mupirocin 0.02 MG/MG Topical Ointment 11/14/2020 12:00:00 AM EDT eCW1 ([facility]) ferric carboxymaltose 50 MG/ML Injectable Solution [In jectafer] 11/14/2020 12:00:00 AM EDT eCW1 ([facility]) ferric carboxymaltose 50 MG/ML Injectable Solution [In jectafer] 11/14/2020 12:00:00 AM EDT eCW1 ([facility]) Mupirocin 0.02 MG/MG Topical Ointment 11/14/2020 12:00:00 AM EDT eCW1 ([facility]) Mupirocin 0.02 MG/MG Topical Ointment 11/14/2020 12:00:00 AM EDT eCW1 ([facility]) ferric carboxymaltose 50 MG/ML Injectable Solution [In jectafer] 11/14/2020 12:00:00 AM EDT eCW1 ([facility]) Mupirocin 0.02 MG/MG Topical Ointment 11/14/2020 12:00:00 AM EDT eCW1 ([facility]) ferric carboxymaltose 50 MG/ML Injectable Solution [In jectafer] 11/14/2020 12:00:00 AM EDT eCW1 ([facility]) ferric carboxymaltose 50 MG/ML Injectable Solution [In jectafer] 11/14/2020 12:00:00 AM EDT eCW1 ([facility]) Mupirocin 0.02 MG/MG Topical Ointment 11/14/2020 12:00:00 AM EDT eCW1 ([facility]) Mupirocin 0.02 MG/MG Topical Ointment 11/14/2020 12:00:00 AM EDT eCW1 ([facility]) ferric carboxymaltose 50 MG/ML Injectable Solution [In jectafer] 11/14/2020 12:00:00 AM EDT eCW1 ([facility]) Mupirocin 0.02 MG/MG Topical Ointment 11/14/2020 12:00:00 AM EDT eCW1 ([facility]) ferric carboxymaltose 50 MG/ML Injectable Solution [In jectafer] 11/14/2020 12:00:00 AM EDT eCW1 ([facility]) Blood Glucose Test - 11/03/2020 12:00:00 AM EDT eCW1 ([facility]) Lancets - 11/03/2020 12:00:00 AM EDT e CW1 ([facility]) Glucometer 11/03/2020 12:00:00 AM EDT e CW1 ([facility]) Glucometer 11/03/2020 12:00:00 AM EDT e CW1 ([facility]) Blood Glucose Test - 11/03/2020 12:00:00 AM EDT eCW1 ([facility]) Lancets - 11/03/2020 12:00:00 AM EDT e CW1 ([facility]) Lancets - 11/03/2020 12:00:00 AM EDT e CW1 ([facility]) Glucometer 11/03/2020 12:00:00 AM EDT e CW1 ([facility]) Blood Glucose Test - 11/03/2020 12:00:00 AM EDT eCW1 ([facility]) 60 ACTUAT Fluticasone propionate 0.25 MG /ACTUAT / salmeterol 0.05 MG/ACTUAT Dry Powder Inhaler [Advair] 07/07/2020 12:00:00 AM EDT eCW1 ([facility]) 60 ACTUAT Fluticasone propionate 0.25 MG /ACTUAT / salmeterol 0.05 MG/ACTUAT Dry Powder Inhaler [Advair] 07/07/2020 12:00:00 AM EDT eCW1 ([facility]) 60 ACTUAT Fluticasone propionate 0.25 MG /ACTUAT / salmeterol 0.05 MG/ACTUAT Dry Powder Inhaler [Advair] 07/07/2020 12:00:00 AM EDT eCW1 ([facility]) 60 ACTUAT Fluticasone propionate 0.25 MG /ACTUAT / salmeterol 0.05 MG/ACTUAT Dry Powder Inhaler [Advair] 07/07/2020 12:00:00 AM EDT eCW1 ([facility]) 60 ACTUAT Fluticasone propionate 0.25 MG /ACTUAT / salmeterol 0.05 MG/ACTUAT Dry Powder Inhaler [Advair] 07/07/2020 12:00:00 AM EDT eCW1 ([facility]) 60 ACTUAT Fluticasone propionate 0.25 MG /ACTUAT / salmeterol 0.05 MG/ACTUAT Dry Powder Inhaler [Advair] 07/07/2020 12:00:00 AM EDT eCW1 ([facility]) 60 ACTUAT Fluticasone propionate 0.25 MG /ACTUAT / salmeterol 0.05 MG/ACTUAT Dry Powder Inhaler [Advair] 07/07/2020 12:00:00 AM EDT eCW1 ([facility]) 60 ACTUAT Fluticasone propionate 0.25 MG /ACTUAT / salmeterol 0.05 MG/ACTUAT Dry Powder Inhaler [Advair] 07/07/2020 12:00:00 AM EDT eCW1 ([facility]) 60 ACTUAT Fluticasone propionate 0.25 MG /ACTUAT / salmeterol 0.05 MG/ACTUAT Dry Powder Inhaler [Advair] 07/07/2020 12:00:00 AM EDT eCW1 ([facility]) 60 ACTUAT Fluticasone propionate 0.25 MG /ACTUAT / salmeterol 0.05 MG/ACTUAT Dry Powder Inhaler [Advair] 07/07/2020 12:00:00 AM EDT eCW1 ([facility]) 60 ACTUAT Fluticasone propionate 0.25 MG /ACTUAT / salmeterol 0.05 MG/ACTUAT Dry Powder Inhaler [Advair] 07/07/2020 12:00:00 AM EDT eCW1 ([facility]) 60 ACTUAT Fluticasone propionate 0.25 MG /ACTUAT / salmeterol 0.05 MG/ACTUAT Dry Powder Inhaler [Advair] 07/07/2020 12:00:00 AM EDT eCW1 ([facility]) POLYETHYLENE GLYCOL 3350 142 MG/ML Oral Solution [Dawn lax] 05/26/2020 12:00:00 AM EDT eCW1 ([facility]) POLYETHYLENE GLYCOL 3350 142 MG/ML Oral Solution [Dawn lax] 05/26/2020 12:00:00 AM EDT eCW1 ([facility]) POLYETHYLENE GLYCOL 3350 142 MG/ML Oral Solution [Dawn lax] 05/26/2020 12:00:00 AM EDT eCW1 ([facility]) POLYETHYLENE GLYCOL 3350 142 MG/ML Oral Solution [Dawn lax] 05/26/2020 12:00:00 AM EDT eCW1 ([facility]) POLYETHYLENE GLYCOL 3350 142 MG/ML Oral Solution [Dawn lax] 05/26/2020 12:00:00 AM EDT eCW1 ([facility]) POLYETHYLENE GLYCOL 3350 142 MG/ML Oral Solution [Dawn lax] 05/26/2020 12:00:00 AM EDT eCW1 ([facility]) POLYETHYLENE GLYCOL 3350 142 MG/ML Oral Solution [Dawn lax] 05/26/2020 12:00:00 AM EDT eCW1 ([facility]) POLYETHYLENE GLYCOL 3350 142 MG/ML Oral Solution [Dawn lax] 05/26/2020 12:00:00 AM EDT eCW1 ([facility]) POLYETHYLENE GLYCOL 3350 142 MG/ML Oral Solution [Dawn lax] 05/26/2020 12:00:00 AM EDT eCW1 ([facility]) POLYETHYLENE GLYCOL 3350 142 MG/ML Oral Solution [Dawn lax] 05/26/2020 12:00:00 AM EDT eCW1 ([facility]) Cyclobenzaprine hydrochloride 10 MG Oral Tablet 02/07/2020 12:00:00 AM EST eCW1 ([facility]) Cyclobenzaprine hydrochloride 10 MG Oral Tablet 02/07/2020 12:00:00 AM EST eCW1 ([facility]) Cyclobenzaprine hydrochloride 10 MG Oral Tablet 02/07/2020 12:00:00 AM EST eCW1 ([facility]) Cyclobenzaprine hydrochloride 5 MG Oral Tablet 02/07/2020 12:00:00 AM EST eCW1 ([facility]) Alprazolam 1 MG Oral Tablet MARILIA ([facility]) Amoxicillin 500 MG / Clavulanate 125 MG Oral Tablet MARILIA ([facility]) glimepiride 1 MG Oral Tablet MARILIA ([facility]) cefdinir 300 MG Oral Capsule MARILIA ([facility]) Ciprofloxacin 250 MG Oral Tablet MARILIA ([facility]) Doxycycline Monohydrate 100 MG Oral Capsule MARILIA ([facility]) 0.3 ML Enoxaparin sodium 100 MG/ML Prefilled Syringe MARILIA ([facility]) Estradiol 0.1 MG/ML Vaginal Cream MARILIA ([facility]) glimepiride 2 MG Oral Tablet MARILIA ([facility]) Methylprednisolone 2 MG Oral Tablet [Medrol] MARILIA ([facility]) Methylprednisolone 4 MG Oral Tablet MARILIA ([facility]) Oxycodone Hydrochloride 5 MG Oral Tablet MARILIA ([facility]) Acetaminophen 325 MG / Oxycodone Hydrochloride 5 MG Oral Tablet [facility]IA ([facility]) Prednisone 20 MG Oral Tablet MAR[facility]IA ([facility]) tramadol hydrochloride 50 MG Oral Tablet MARILIA ([facility]) glimepiride 2 MG Oral Tablet MARILIA ([facility]) glimepiride 1 MG Oral Tablet MARILIA ([facility]) 0.3 ML Enoxaparin sodium 100 MG/ML Prefilled Syringe MARILIA ([facility]) Ciprofloxacin 250 MG Oral Tablet MAR[facility]IA ([facility]) Estradiol 0.1 MG/ML Vaginal Cream MARILIA ([facility]) Doxycycline Monohydrate 100 MG Oral Capsule [facility]IA ([facility]) Methylprednisolone 2 MG Oral Tablet [Medrol] MARILIA ([facility]) Methylprednisolone 4 MG Oral Tablet [facility] ([facility]) Oxycodone Hydrochloride 5 MG Oral Tablet [facility] ([facility]) tramadol hydrochloride 50 MG Oral Tablet [facility] ([facility]) Acetaminophen 325 MG / Oxycodone Hydrochloride 5 MG Oral Tablet [facility] ([facility]) Alprazolam 1 MG Oral Tablet [facility] ([facility]) Prednisone 20 MG Oral Tablet [facility] ([facility]) Amoxicillin 500 MG / Clavulanate 125 MG Oral Tablet [facility] ([facility]) Amoxicillin 500 MG / Clavulanate 125 MG Oral Tablet [facility] ([facility]) cefdinir 300 MG Oral Capsule [facility] ([facility]) Ciprofloxacin 250 MG Oral Tablet [facility] ([facility]) Doxycycline Monohydrate 100 MG Oral Capsule [facility] ([facility]) 0.3 ML Enoxaparin sodium 100 MG/ML Prefilled Syringe [facility] ([facility]) Estradiol 0.1 MG/ML Vaginal Cream [facility] ([facility]) Acetaminophen 325 MG / Oxycodone Hydrochloride 5 MG Oral Tablet [facility] ([facility]) Prednisone 20 MG Oral Tablet [facility] ([facility]) Methylprednisolone 2 MG Oral Tablet [Medrol] [facility] ([facility]) Methylprednisolone 4 MG Oral Tablet [facility] ([facility]) Oxycodone Hydrochloride 5 MG Oral Tablet [facility] ([facility]) tramadol hydrochloride 50 MG Oral Tablet [facility] ([facility]) cefdinir 300 MG Oral Capsule [facility] ([facility]) Alprazolam 1 MG Oral Tablet [facility] ([facility]) Methylprednisolone 2 MG Oral Tablet [Medrol] [facility] ([facility]) Methylprednisolone 4 MG Oral Tablet [facility] ([facility]) Oxycodone Hydrochloride 5 MG Oral Tablet [facility] ([facility]) Acetaminophen 325 MG / Oxycodone Hydrochloride 5 MG Oral Tablet [facility] ([facility]) Prednisone 20 MG Oral Tablet [facility] ([facility]) Amoxicillin 500 MG / Clavulanate 125 MG Oral Tablet [facility] ([facility]) Ciprofloxacin 250 MG Oral Tablet [facility] ([facility]) Doxycycline Monohydrate 100 MG Oral Capsule [facility] ([facility]) 0.3 ML Enoxaparin sodium 100 MG/ML Prefilled Syringe [facility] ([facility]) Estradiol 0.1 MG/ML Vaginal Cream [facility] ([facility]) tramadol hydrochloride 50 MG Oral Tablet [facility] ([facility]) Alprazolam 1 MG Oral Tablet [facility] ([facility]) Amoxicillin 500 MG / Clavulanate 125 MG Oral Tablet [facility] ([facility]) Oxycodone Hydrochloride 5 MG Oral Tablet [facility] ([facility]) cefdinir 300 MG Oral Capsule [facility] ([facility]) Acetaminophen 325 MG / Oxycodone Hydrochloride 5 MG Oral Tablet [facility] ([facility]) Doxycycline Monohydrate 100 MG Oral Capsule [facility] ([facility]) 0.3 ML Enoxaparin sodium 100 MG/ML Prefilled Syringe [facility] ([facility]) Ciprofloxacin 250 MG Oral Tablet [facility] ([facility]) Estradiol 0.1 MG/ML Vaginal Cream [facility] ([facility]) Methylprednisolone 2 MG Oral Tablet [Medrol] [facility] ([facility]) Methylprednisolone 4 MG Oral Tablet [facility] ([facility]) Prednisone 20 MG Oral Tablet [facility] ([facility]) cefdinir 300 MG Oral Capsule [facility] ([facility]) tramadol hydrochloride 50 MG Oral Tablet [facility] ([facility]) Alprazolam 1 MG Oral Tablet [facility] ([facility]) Amoxicillin 500 MG / Clavulanate 125 MG Oral Tablet [facility] ([facility]) Ciprofloxacin 250 MG Oral Tablet [facility] ([facility]) Doxycycline Monohydrate 100 MG Oral Capsule [facility] ([facility]) 0.3 ML Enoxaparin sodium 100 MG/ML Prefilled Syringe [facility] ([facility]) Estradiol 0.1 MG/ML Vaginal Cream [facility] ([facility]) tramadol hydrochloride 50 MG Oral Tablet [facility] ([facility]) Methylprednisolone 2 MG Oral Tablet [Medrol] [facility] ([facility]) Methylprednisolone 4 MG Oral Tablet [facility] ([facility]) Oxycodone Hydrochloride 5 MG Oral Tablet [facility] ([facility]) Acetaminophen 325 MG / Oxycodone Hydrochloride 5 MG Oral Tablet [facility] ([facility]) Prednisone 20 MG Oral Tablet [facility] ([facility]) Ciprofloxacin 250 MG Oral Tablet [facility] ([facility]) Amoxicillin 500 MG / Clavulanate 125 MG Oral Tablet [facility] ([facility] Cyclobenzaprine hydrochloride 5 MG Oral Tablet [facility] ([facility]) Doxycycline Monohydrate 100 MG Oral Capsule [facility] ([facility]) 0.3 ML Enoxaparin sodium 100 MG/ML Prefilled Syringe [facility] ([facility]) Estradiol 0.1 MG/ML Vaginal Cream [facility] ([facility]) glimepiride 1 MG Oral Tablet [facility] ([facility]) Methylprednisolone 2 MG Oral Tablet [Medrol] [facility] ([facility]) Methylprednisolone 4 MG Oral Tablet [facility] ([facility]) Oxycodone Hydrochloride 5 MG Oral Tablet [facility] ([facility]) Acetaminophen 325 MG / Oxycodone Hydrochloride 5 MG Oral Tablet [facility] ([facility]) Prednisone 20 MG Oral Tablet [facility] ([facility]) tramadol hydrochloride 50 MG Oral Tablet [facility] ([facility]) Doxycycline Monohydrate 100 MG Oral Capsule [facility] ([facility]) 0.3 ML Enoxaparin sodium 100 MG/ML Prefilled Syringe [facility] ([facility]) Amoxicillin 500 MG / Clavulanate 125 MG Oral Tablet [facility] ([facility]) Ciprofloxacin 250 MG Oral Tablet [facility] ([facility]) Cyclobenzaprine hydrochloride 5 MG Oral Tablet [facility] ([facility]) Estradiol 0.1 MG/ML Vaginal Cream [facility] ([facility]) glimepiride 1 MG Oral Tablet [facility] ([facility]) Methylprednisolone 2 MG Oral Tablet [Medrol] [facility] ([facility]) Methylprednisolone 4 MG Oral Tablet [facility] ([facility]) Ciprofloxacin 250 MG Oral Tablet [facility] ([facility]) Amoxicillin 500 MG / Clavulanate 125 MG Oral Tablet [facility] ([facility]) Estradiol 0.1 MG/ML Vaginal Cream [facility] ([facility]) Oxycodone Hydrochloride 5 MG Oral Tablet [facility] ([facility]) Acetaminophen 325 MG / Oxycodone Hydrochloride 5 MG Oral Tablet [facility] ([facility]) Prednisone 20 MG Oral Tablet [facility] ([facility]) tramadol hydrochloride 50 MG Oral Tablet [facility] ([facility]) Doxycycline Monohydrate 100 MG Oral Capsule [facility] ([facility]) 0.3 ML Enoxaparin sodium 100 MG/ML Prefilled Syringe [facility] ([facility]) tramadol hydrochloride 50 MG Oral Tablet [facility] ([facility]) Oxycodone Hydrochloride 5 MG Oral Tablet [facility] ([facility]) Acetaminophen 325 MG / Oxycodone Hydrochloride 5 MG Oral Tablet [facility] ([facility]) Prednisone 20 MG Oral Tablet [facility] ([facility]) glimepiride 1 MG Oral Tablet [facility] ([facility]) glimepiride 2 MG Oral Tablet [facility] ([facility]) Methylprednisolone 2 MG Oral Tablet [Medrol] [facility] ([facility]) Methylprednisolone 4 MG Oral Tablet [facility] ([facility]) Estradiol 0.1 MG/ML Vaginal Cream [facility] ([facility]) Amoxicillin 500 MG / Clavulanate 125 MG Oral Tablet [facility] ([facility]) Ciprofloxacin 250 MG Oral Tablet [facility] ([facility]) Methylprednisolone 2 MG Oral Tablet [Medrol] [facility] ([facility]) glimepiride 1 MG Oral Tablet [facility] ([facility]) Methylprednisolone 4 MG Oral Tablet [facility] ([facility]) Doxycycline Monohydrate 100 MG Oral Capsule [facility] ([facility]) 0.3 ML Enoxaparin sodium 100 MG/ML Prefilled Syringe [facility] ([facility]) glimepiride 2 MG Oral Tablet [facility] ([facility]) Oxycodone Hydrochloride 5 MG Oral Tablet [facility] ([facility]) Acetaminophen 325 MG / Oxycodone Hydrochloride 5 MG Oral Tablet [facility] ([facility]) Prednisone 20 MG Oral Tablet [facility] ([facility]) tramadol hydrochloride 50 MG Oral Tablet [facility] ([facility])
[2021-02-14 12:35] LABS: RSV AMPLIFICATION NEGATIVE (NEGATIVE)
[2021-02-14 12:40] LABS: OSMOLALITY SERUM 292 MOSM/KG (280-301)
[2021-02-14 12:46] LABS: ACETAMINOPHEN LEVEL < 2.0 UG/ML (10.0-30.0); ALBUMIN 3.3 GM/DL (3.2-5.2); ALT/SGPT 90 U/L (12-78); BILIRUBIN,DIRECT 0.4 MG/DL (0.0-0.2); BILIRUBIN,TOTAL 1.6 MG/DL (0.2-1.0); BLOOD UREA NITROGEN 16 MG/DL (7-18); CALCIUM LEVEL 9.1 MG/DL (8.8-10.2); CARBON DIOXIDE LEVEL 25 MEQ/L (21-32); CHLORIDE LEVEL 106 MEQ/L (98-107); CREATININE FOR GFR 0.61 MG/DL (0.55-1.30); FREE T4 1.38 NG/DL (0.76-1.46); GLOMERULAR FILTRATION RATE > 60.0 (>45); GLUCOSE, FASTING 182 MG/DL (70-100); MAGNESIUM LEVEL 1.9 MG/DL (1.8-2.4); POTASSIUM SERUM 3.2 MEQ/L (3.5-5.1); SALICYLATE LEVEL < 1.7 MG/DL (5.0-30.0); SODIUM LEVEL 141 MEQ/L (136-145); THYROID STIMULATING HORMONE 0.153 uIU/ML (0.358-3.740); TOTAL PROTEIN 6.3 GM/DL (6.4-8.2)
[2021-02-14 12:47] LABS: ETHYL ALCOHOL (ETHANOL) < 0.003 % (0.000-0.010)
[2021-02-14] MEDS ORDERED: NS 1,000 ML IV ONE (13:00)
[2021-02-14 13:51] LABS: AMPHETAMINES LEVEL URINE NEGATIVE (NEGATIVE); BARBITURATES URINE NEGATIVE (NEGATIVE); BENZODIAZEPINES URINE NEGATIVE (NEGATIVE); CANNABINOIDS URINE NEGATIVE (NEGATIVE); COCAINE METABOLITE URINE NEGATIVE (NEGATIVE); METHADONE URINE NEGATIVE (NEGATIVE); OPIATES URINE NEGATIVE (NEGATIVE); PHENCYCLIDINE URINE NEGATIVE (NEGATIVE)
[2021-02-14] MEDS ORDERED: HOME MED LIST COMPLETE! XX SCH (13:55)
[2021-02-14] MEDS ORDERED: ALBUTEROL 90 MCG/ACT 8GM HFA INHALER INH PRN (14:15)
[2021-02-14] MEDS ORDERED: CYCLOBENZAPRINE 5MG TABLET PO PRN (14:15)
[2021-02-14] MEDS ORDERED: ALBUTEROL SULFATE 2.5 MG/0.5 ML INH NEB SOLN INH PRN (14:15)
[2021-02-14] MEDS ORDERED: DEXTROSE 50% 50 ML SYRINGE IV PRN (14:40)
[2021-02-14] MEDS ORDERED: GLUCAGON INJ 1MG VIAL SC PRN (14:40)
[2021-02-14] MEDS ORDERED: GLUCOSE 4GM CHEW TABLET PO PRN (14:40)
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
--- OUTSIDE RECORDS SUMMARY | 2021-02-14 15:16 | CCD ---
Author Author [facility] Address Unknown Phone Unavailable Care Team Providers Care Registered Radiographer Name Role Phone Jean-Pierre Ling MD Unavailable [...] Gao MD Unavailable Unavailable Jumalon, M Mar CASH REGISTER BALANCER Unavailable Unavailable Jumalon, M Mar CASH REGISTER BALANCER Unavailable Unavailable Jumalon, M Mar CASH REGISTER BALANCER Unavailable Unavailable Jumalon, M Mar CASH REGISTER BALANCER Unavailable Unavailable Jumalon, M Mar CASH REGISTER BALANCER Unavailable Unavailable Jumalon, M Mar CASH REGISTER BALANCER Unavailable Unavailable Jumalon, M Mar CASH REGISTER BALANCER Unavailable Unavailable Jumalon, M Mar CASH REGISTER BALANCER Unavailable Unavailable Jumalon, M Mar CASH REGISTER BALANCER Unavailable Unavailable Jumalon, M Mar CASH REGISTER BALANCER Unavailable Unavailable Jumalon, M Mar CASH REGISTER BALANCER Unavailable Unavailable Jumalon, M Mar CASH REGISTER BALANCER Unavailable Unavailable Jumalon, M Mar CASH REGISTER BALANCER Unavailable Unavailable Jumalon, M Mar CASH REGISTER BALANCER Unavailable Unavailable Jumalon, M Mar CASH REGISTER BALANCER Unavailable Unavailable Jumalon, M Mar CASH REGISTER BALANCER Unavailable Unavailable Jumalon, M Mar CASH REGISTER BALANCER Unavailable Unavailable Jumalon, M Mar CASH REGISTER BALANCER Unavailable Unavailable Jumalon, M Mar CASH REGISTER BALANCER Unavailable Unavailable Jumalon, M Mar CASH REGISTER BALANCER Unavailable Unavailable Jumalon, M Mar CASH REGISTER BALANCER Unavailable Unavailable Jumalon, M Mar CASH REGISTER BALANCER Unavailable Unavailable Jumalon, M Mar CASH REGISTER BALANCER Unavailable Unavailable Jumalon, M Mar CASH REGISTER BALANCER Unavailable Unavailable Jumalon, M Mar CASH REGISTER BALANCER Unavailable Unavailable Jumalon, M Mar CASH REGISTER BALANCER Unavailable Unavailable Jumalon, M Mar CASH REGISTER BALANCER Unavailable Unavailable Jumalon, M Mar CASH REGISTER BALANCER Unavailable Unavailable Jumalon, M Mar CASH REGISTER BALANCER Unavailable Unavailable Jumalon, M Mar CASH REGISTER BALANCER Unavailable Unavailable Rechlin, P Andrea DO Unavailable [...] Unavailable Rechlin, P Nadrea DO Unavailable Unavailable Forest, Temitope Amira Unavailable [...] is protected by Article 27-F of the [place] State Public Health law. If you continue you may have access to information: Regarding HIV / AIDS; Provided by facilities licensed or operated by the [facility] Office of Mental Health; or Provided by the [facility] Office for People With Developmental Disabilities. If such information is present, then the following [facility] mandated warning applies: This information has been [...] Date Indications Data Source(s ) Unknown [address] [facility] [address] 02/04/2021 12:00:00 AM EST eCW1 ([facility]) Unknown [address] [facility] [address] 02/03/2021 12:00:00 AM EST [facility] [address] [facility] [address] 01/23/2021 12:00:00 AM EST eCW1 ([facility]) Outpatient [address] [facility] [address] 01/22/2021 12:00:00 AM EST [facility]CW1 [facility] [address] [facility] Y [address] 01/20/2021 12:00:00 AM EST eCW1 ([facility]) Unknown [address] [facility] Y [address] 01/19/2021 12:00:00 AM EST eCW1 [facility] Unknown [address] [facility] [address] 01/16/2021 12:00:00 AM EST eCW1 [facility] Unknown [address] [facility] [address] 01/16/2021 12:00:00 AM EST eCW1 ([facility]) Unknown [address] [facility], [place] [address] 01/14/2021 12:00:00 AM EST eCW1 ([facility]) Unknown [address] [facility], [place] [address] 01/01/2021 12:00:00 AM EDT eCW1 ([facility]) Unknown [address] [facility], [place] [address] 12/29/2020 12:00:00 AM EDT eCW1 ([facility]) Unknown [address] [facility] [address] 12/26/2020 12:00:00 AM EDT eCW1 ([facility]) Unknown [address] [facility], [place] [address] 12/19/2020 12:00:00 AM EDT eCW1 ([facility]) Unknown [address] [facility], [place] [address] 12/19/2020 12:00:00 AM EDT eCW1 ([facility]) Unknown [address] [facility], [place] [address] 12/19/2020 12:00:00 AM EDT eCW1 ([facility]) Unknown [address] [facility], [place] [address] 12/16/2020 12:00:00 AM EDT eCW1 ([facility]) Unknown [address] [facility], [place] [address] 12/15/2020 12:00:00 AM EDT eCW1 ([facility]) Unknown [address] [facility], [place] [address] 12/05/2020 12:00:00 AM EDT eCW1 ([facility]) Unknown [address] [facility], [place] [address] 11/18/2020 12:00:00 AM EDT eCW1 ([facility]) Unknown [address] [facility], Y [address] 11/17/2020 12:00:00 AM EDT eCW1 ([facility]) Outpatient [address] [facility] Y [address] 11/14/2020 12:00:00 AM EDT eCW1 ([facility]) Unknown [address] [facility], Y [address] 11/14/2020 12:00:00 AM EDT eCW1 ([facility]) Unknown [address] [facility], Y [address] 11/14/2020 12:00:00 AM EDT eCW1 ([facility]) Unknown [address] [facility] Y [address] 11/13/2020 12:00:00 AM EDT eCW1 ([facility]) Unknown [address] [facility] Y [address] 11/04/2020 12:00:00 AM EDT eCW1 ([facility]) Unknown [address] [facility] Y [address] 11/03/2020 12:00:00 AM EDT eCW1 ([facility]) Oleg Ling MD: [address] [address], [facility] [place] [address], Ph. Attender: Oleg Ling MD [place] - [facility] - Main Office 10/24/2020 12:00:00 AM EDT MARILIA ([facility]) Office Visit Attender: Bren RODRIGES Physical Therapy 01:15:00 PM EDT MEDREMY ([facility]) Outpatient [address] [facility], [place] [address] 10/21/2020 12:00:00 AM EDT eCW1 ([facility]) Unknown [address] [facility], [facility] [address] 10/21/2020 12:00:00 AM EDT eCW1 ([facility]) Oleg Lign MD: [address], [address], [place] [address], Ph. [phone] Attender: Oleg Ling MD [place] - [facility] 10/20/2020 12:00:00 AM EDT MARILIA ([facility]) Oleg Ling MD: [address], [address], [place] [address], Ph. [phone] Attender: Oleg Ling MD [place] - [facility] 10/20/2020 12:00:00 AM EDT MARILIA ([facility]) Outpatient Attender: Michael Glover/Riri/Angel adame/Avery 10/15/2020 01:00:00 PM EDT EVELYNE ([facility], ) Mar Smith, BIN PILER: [address], [place] [address], Ph. Attender: Mar Smith [facility] - [facility] 10/15/2020 12:00:00 AM EDT VANCE FLORES ([facility]) Mar Smith, BIN PILER: [address], [address], [place] [address], Ph. Attender: Mar Smith [facility] - [facility] 10/15/2020 12:00:00 AM EDT VANCE FLORES ([facility]) Mar Smith, BIN PILER: [address], [place] [address], Ph. Attender: Mar Smith [facility] - [facility] 10/15/2020 12:00:00 AM EDT ATHE MARK ([facility]) Outpatient Attender: Andrea Sterling/Riri/Mil/Joe ndprabha 10/08/2020 09:30:00 AM EDT MEDENT ([facility]) Unknown [address] [facility], [place] [address] 10/07/2020 12:00:00 AM EDT eCW1 [facility]) Outpatient [address] [facility] Y [address] 09/22/2020 12:00:00 AM EDT eCW1 ([facility]) Unknown [address] [facility] Y [address] 09/04/2020 12:00:00 AM EDT eCW1 ([facility]) Unknown [address] [facility] Y [address] 08/28/2020 12:00:00 AM EDT eCW1 ([facility]) Unknown [address] [facility] N Y [address] 08/27/2020 12:00:00 AM EDT eCW1 ([facility]) Unknown [address] [facility] N Y [address] 08/25/2020 12:00:00 AM EDT eCW1 ([facility]) Unknown [address] [facility] Y [address] 08/14/2020 12:00:00 AM EDT eCW1 ([facility]) Outpatient Attender: Amira Garg 08/11/2020 11:00:00 PM E DT Viscosity Inspector [facility] Viscosity Inspector Outpatient Attender: Amira Harrell/ [facility] 04:00:00 PM EDT MEDENT [facility] Oleg Ling MD: [address] [address], [place] [address], Ph. [phone] Attender: Oleg Ling MD [place] - [facility] 08/11/2020 12:00:00 AM EDT MARILIA ([facility]) Oleg Ling MD: [address], [address], [place] [address], Ph. [phone] Attender: Oleg Ling MD [place] - [facility] 08/11/2020 12:00:00 AM EDT MARILIA ([facility]) Oleg Ling MD: [address], [address], [place] [address], Ph. [phone] Attender: Oleg Ling MD [place] - [facility] 08/11/2020 12:00:00 AM EDT MARILIA ([facility]) Oleg Ling MD: [address], [address], [place] [address], Ph. [phone] Attender: Oleg Ling MD [place] - [facility] 08/11/2020 12:00:00 AM EDT MARILIA ([facility]) Mar Smith, BIN PILER: [address], [place] [address], Ph. Attender: Mar Smith [facility] - [facility] 08/06/2020 12:00:00 AM EDT ATHJaime NA ([facility]) Mar Smith, BIN PILER: [address], [address], [place] [address], Ph. Attender: Mar Smith [facility] - [facility] 08/06/2020 12:00:00 AM EDT ATHE NA ([facility]) Mar Smith, BIN PILER: [address], [place] [address], Ph. Attender: Mar Smith [facility] - [facility] - [facility] Office 08/06/2020 12:00:00 AM EDT ATHE NA ([facility]) Mar Smith, BIN PILER: [address], [place] [address], Ph. Attender: Mar Smith [facility] - [facility] 08/06/2020 12:00:00 AM EDT ATHE NA ([facility]) Mar Smith, BIN PILER: [address], [place] [address], Ph. Attender: Mar Smith [facility] - [facility] 08/06/2020 12:00:00 AM EDT ATHJaime NA ([facility]) Office Visit Attender: Bren RODRIGES Physical Therapy 10:30:00 AM EDT MEDENT ([facility] ) Outpatient Attender: Monica Bal MD 07/14/2020 11:00:00 PM EDT [facility] Outpatient Attender: Monica Bal MD Owsley/ Steffen torres 07/14/2020 03:30:00 PM EDT MEDENT ([facility]) Unknown [address] [facility], [place] [address] 07/08/2020 12:00:00 AM EDT eCW1 ([facility]) Unknown [address] [facility], [place] [address] 07/07/2020 12:00:00 AM EDT eCW1 ([facility]) Outpatient [address] [facility] Y [address] 07/04/2020 12:00:00 AM EDT eCW1 ([facility]) Unknown [address] [facility], [place] [address] 07/04/2020 12:00:00 AM EDT eCW1 ([facility]) Unknown [address] [facility], [place] [address] 07/04/2020 12:00:00 AM EDT eCW1 ([facility]) Unknown [address] [facility], [place] [address] 07/04/2020 12:00:00 AM EDT eCW1 ([facility]) Unknown [address] [facility], [place] [address] 07/03/2020 12:00:00 AM EDT eCW1 ([facility]) Unknown [address] [facility], [place] [address] 06/30/2020 12:00:00 AM EDT eCW1 ([facility]) Unknown [address] [facility], [place] [address] 06/25/2020 12:00:00 AM EDT eCW1 ([facility]) Unknown [address] [facility], [place] [address] 06/19/2020 12:00:00 AM EDT eCW1 ([facility]) Unknown [address] [facility], [place] [address] 06/19/2020 12:00:00 AM EDT eCW1 ([facility]) Unknown [address] [facility] [address] 06/17/2020 12:00:00 AM EDT eCW1 ([facility]) Unknown [address] [facility], [place] [address] 06/13/2020 12:00:00 AM EDT eCW1 ([facility]) Unknown [address] [facility], [place] [address] 06/09/2020 12:00:00 AM EDT eCW1 ([facility]) Unknown [address] [facility], [place] [address] 06/04/2020 12:00:00 AM EDT eCW1 ([facility]) Unknown [address] [facility], [place] [address] 05/26/2020 12:00:00 AM EDT eCW1 [facility] Outpatient [address] [facility], [place] [address] 05/26/2020 12:00:00 AM EDT eCW1 ([facility]) Unknown [address] [facility], [place] [address] 05/20/2020 12:00:00 AM EDT eCW1 ([facility]) Unknown [address] [facility] [address] 05/15/2020 12:00:00 AM EST eCW1 ([facility] Outpatient [address] [facility] [address] 05/12/2020 12:00:00 AM EST eCW1 ([facility]) Mar Smith, BIN PILER: [address], [place] [address], Ph. Attender: Mar Smith [facility] 04/15/2020 12:00:00 AM EST ATHE NA ([facility]) Mar Smith, BIN PILER: [address], [place] [address], Ph. Attender: Mar Smith [facility] 04/15/2020 12:00:00 AM EST ATHE NA ([facility]) Mar Smith, BIN PILER: [address], [place] [address], Ph. Attender: Mar Smith [facility] - [facility] 04/15/2020 12:00:00 AM EST ATHE NA ([facility]) Mra Smith, BIN PILER: [address], [place] [address], Ph. Attender: Mar Smith [facility] - [facility] 04/15/2020 12:00:00 AM EST ATHE NA ([facility]) Mar Smith, BIN PILER: [address], [place] [address], Ph. Attender: Mar Smith [facility] - [facility] 04/15/2020 12:00:00 AM EST ATHE NA ([facility]) Mar Smith, BIN PILER: [address], [facility] [place] [address], Ph. Attender: Mar Smith [facility] 04/15/2020 12:00:00 AM EST ATHE NA ([facility]) Outpatient Attender: Monica Bal MD 04/07/2020 09:05 :00 PM EST [facility] Outpatient Attender: Monica Bal MD Owsley/ Steffen torres 04/07/2020 12:15:00 PM EST MEDENT ([facility] Oleg Ling MD: [address], [facility] [place] [address], Ph. Attender: Oleg Ling MD [facility] 03/31/2020 12:00:00 AM EST MARILIA ([facility]) Oleg Ling MD: [address], [place] [address], Ph. Attender: Oleg Ling MD [facility] 03/31/2020 12:00:00 AM EST MARILIA ([facility]) Oleg Ling MD: [address], [address] [place], [place] [address], Ph. Attender: Oleg Ling MD [place] - [facility] 03/31/2020 12:00:00 AM EST MARILIA ([facility]) Oleg Ling MD: [address], [address], [place] [address], Ph. Attender: Oleg Ling MD [place] - [facility] 03/31/2020 12:00:00 AM EST MARILIA ([facility]) Oleg Ling MD: [address], [place] [address], Ph. Attender: Oleg CHAIREZ - [facility] 03/31/2020 12:00:00 AM EST MARILIA ([facility]) Oleg Ling MD: [address], [place] [address], Ph. Attender: Oleg Ling MD [place] - [facility] 03/31/2020 12:00:00 AM EST MARILIA ([facility]) Oleg Ling MD: [address], [place] [address], Ph. Attender: Oleg Ling MD [place] - [facility] 03/31/2020 12:00:00 AM EST MARILIA ([facility]) OFFICE OUTPATIENT VISIT 15 MINUTES Attender: Bren RODRIGES Physical Therapy 03/27/2020 12:45:00 PM EST MEDENT ([facility]) Oleg Ling MD: [address], [place] [address], Ph. [phone] Attender: Oleg Ling MD [place] - [facility] 03/26/2020 12:00:00 AM EST MARILIA ([facility]) Oleg Ling MD: [address], [place] [address], Ph. [phone] Attender: Oleg Ling MD [place] - [facility] 03/26/2020 12:00:00 AM EST MARILIA ([facility]) Oleg Ling MD: [address], [address], [place] [address], Ph. [phone] Attender: Oleg Ling MD [place] - [facility] 03/26/2020 12:00:00 AM EST MARILIA ([facility]) Oleg Ling MD: [address], [address], [place] [address], Ph. [phone] Attender: Oleg Ling MD [place] - [facility] 03/26/2020 12:00:00 AM EST MARILIA ([facility]) Oleg Ling MD: [address], [address], [place] [address], Ph. [phone] Attender: Oleg Ling MD [place] - [facility] 03/26/2020 12:00:00 AM EST MARILIA ([facility]) Oleg Ling MD: [address], [address], [place] [address], Ph. [phone] Attender: Oleg Ling MD [place] - [facility] 03/26/2020 12:00:00 AM EST MARILIA ([facility]) Oleg Ling MD: [address], [address], [place] [address], Ph. [phone] Attender: Oleg Ling MD [place] - [facility] 03/26/2020 12:00:00 AM EST MARILIA ([facility]) Oleg Ling MD: [address], [place] [address], Ph. [phone] Attender: Oleg Lign MD [place] - [facility] 03/26/2020 12:00:00 AM EST MARILIA ([facility]) Mar Smith, BIN PILER: [address], [place] [address], Ph. Attender: Mar Smith [facility] - [facility] 03/18/2020 12:00:00 AM EST ATHE NA ([facility]) Mar Smith, BIN PILER: [address], [facility] [place] [address], Ph. Attender: Mar Smith [facility] - [facility] 03/18/2020 12:00:00 AM EST ATHE NA ([facility]) Mar Smith, BIN PILER: [address], [place] [address], Ph. Attender: Mar Smith [facility] - [facility] 03/18/2020 12:00:00 AM EST ATHE NA ([facility]) Mar Smith, BIN PILER: [address], [place] [address], Ph. Attender: Mar Smith [facility] - [facility] 03/18/2020 12:00:00 AM EST ATHE NA ([facility]) Mar Rodriguez Sarah, BIN PILER: [address], [place] [address], Ph. Attender: Mar Smith [facility] - [facility] 03/18/2020 12:00:00 AM EST ATHE NA ([facility]) Mar Smith, BIN PILER: [address], [place] [address], Ph. Attender: Mar Smith [facility] - [facility] 03/18/2020 12:00:00 AM EST ATHE NA ([facility]) Mar Smith, BIN PILER: [address], [place] [address], Ph. Attender: Mar Smith [facility] - [facility] 03/18/2020 12:00:00 AM EST ATHE NA ([facility]) Mar Smith, BIN PILER: [address], [place] [address], Ph. Attender: Mar Smith [facility] - [facility] 03/18/2020 12:00:00 AM EST ATHE NA ([facility]) Mar Smith, BIN PILER: [address], [place] [address], Ph. Attender: Mar Smith [facility] - [facility] 03/18/2020 12:00:00 AM EST ATHE NA ([facility]) Unknown [address] [facility] [address] 03/14/2020 12:00:00 AM EST eCW1 ([facility]) Unknown [address] [facility] [address] 03/13/2020 12:00:00 AM EST eCW1 ([facility]) Outpatient Attender: Andrea Sterling/Riri/Mil/Joe ndl 03/12/2020 09:00:00 AM EST MEDENT ([facility], ) Mar Smith, BIN PILER: [address], [place] [address], Ph. Attender: Mar Smith [facility] 02/14/2020 12:00:00 AM EST ATHE NA ([facility]) Mar Smith, BIN PILER: [address], [place] [address], Ph. Attender: Mar Smith [facility] 02/14/2020 12:00:00 AM EST ATHE NA ([facility]) Mar Smith, BIN PILER: [address], [place] [address], Ph. Attender: Mar Smith [facility] 02/14/2020 12:00:00 AM EST ATHE NA ([facility]) Mar Smith, BIN PILER: [address], [place] [address], Ph. Attender: Mar Smith [facility] 02/14/2020 12:00:00 AM EST ATHE NA ([facility]) Mar Smith, BIN PILER: [address], [place] [address], Ph. Attender: Mar Smith [facility] 02/14/2020 12:00:00 AM EST ATHE NA ([facility]) Mar Smith, BIN PILER: [address], [place] [address], Ph. Attender: Mar Smith [facility] - [facility] 02/14/2020 12:00:00 AM EST ATHE NA ([facility]) Mar Smith, BIN PILER: [address], [place] [address], Ph. Attender: Mar Smith [facility] - [facility] 02/14/2020 12:00:00 AM EST ATHE NA ([facility]) Mar Smith, BIN PILER: [address], [place] [address], Ph. Attender: Mar Smith [facility] - [facility] 02/14/2020 12:00:00 AM EST ATHE NA ([facility]) Mar Smith, BIN PILER: [address], [place] [address], Ph. Attender: Mar Smith [facility] - [facility] 02/14/2020 12:00:00 AM EST ATHE NA ([facility]) Mar Smith, BIN PILER: [address], [place] [address], Ph. Attender: Mar Smith [facility] - [facility] 02/14/2020 12:00:00 AM EST ATHE NA ([facility]) Unknown [address] [facility] [address] 02/13/2020 12:00:00 AM EST eCW1 ([facility]) Unknown [address] [facility] [address] 02/06/2020 12:00:00 AM EST eCW1 ([facility]) Outpatient Attender: Amira Garg 01/10/2020 11:00:00 PM E [facility] Outpatient Attender: Amira Harrell/ [facility] 12:30:00 PM DANIELLE STUBBS ([facility]) Preadmit Attender: Cesario Gao MD 01/03/2020 12:00:00 AM EDT S/P R FEMUR FX [facility] S/P R FEMUR FX Immunizations Vaccine Date Status Description Data Source(s) COVID-19 VACCINE Moderna 11/05/2020 12:00:00 AM EDT completed [place] Vaccine Series Complete: YESThis Data wa s Submitted to [facility] Via [employer]. COVID-19 VACCINE Moderna 10/01/2020 12:00:00 AM EDT completed [place] Vaccine Series Complete: NOThis Data was Submitted to [facility] [employer]. Medications Medication Brand Name Start Date Product Form Dose Route Admi nistrative Instructions Pharmacy Instructions Status Indications Reaction Description Data Source(s) Ondansetron 4 MG Disintegrating Oral Tablet Ondansetron 4 MG 02/03/2021 12:00:00 AM EST 1.0 {tablet_on_the_tongue_and_allow_to_dissolve} active Ondansetron 4 MG eCW1 ([facility]) Ondansetron 4 MG Disintegrating Oral Tablet Ondansetron 4 MG 02/03/2021 12:00:00 AM EST 1.0 {tablet_on_the_tongue_and_allow_to_dissolve} active Ondansetron 4 MG eCW1 ([facility]) celecoxib 200 MG Oral Capsule [Celebrex] CeleBREX 200 MG Dee eBREX 200 MG 01/16/2021 12:00:00 AM EST 1.0 {capsule_with_food} a ctive eCW1 ([facility]) celecoxib 200 MG Oral Capsule [Celebrex] CeleBREX 200 MG Dee eBREX 200 MG 01/16/2021 12:00:00 AM EST 1.0 {capsule_with_food} active CeleBREX 200 MG eCW1 ([facility]) celecoxib 200 MG Oral Capsule [Celebrex] CeleBREX 200 MG Dee eBREX 200 MG 01/16/2021 12:00:00 AM EST 1.0 {capsule_with_food} active CeleBREX 200 MG eCW1 ([facility]) NITROFURANTOIN, MACROCRYSTALS 25 MG / Ni trofurantoin, Monohydrate 75 MG Oral Capsule [Macrobid] Macrobid 100 MG Macrobid 100 MG 11/17/2020 12:00:00 AM EDT active Macrobid 100 MG eCW1 ([facility]) NITROFURANTOIN, MACROCRYSTALS 25 MG / Ni trofurantoin, Monohydrate 75 MG Oral Capsule [Macrobid] Macrobid 100 MG Macrobid 100 MG 11/17/2020 12:00:00 AM EDT active Macrobid 100 MG eCW1 ([facility]) NITROFURANTOIN, MACROCRYSTALS 25 MG / Ni trofurantoin, Monohydrate 75 MG Oral Capsule [Macrobid] Macrobid 100 MG Macrobid 100 MG 11/17/2020 12:00:00 AM EDT active Macrobid 100 MG eCW1 ([facility]) NITROFURANTOIN, MACROCRYSTALS 25 MG / Ni trofurantoin, Monohydrate 75 MG Oral Capsule [Macrobid] Macrobid 100 MG Macrobid 100 MG 11/17/2020 12:00:00 AM EDT active Macrobid 100 MG eCW1 ([facility]) NITROFURANTOIN, MACROCRYSTALS 25 MG / Ni trofurantoin, Monohydrate 75 MG Oral Capsule [Macrobid] Macrobid 100 MG Macrobid 100 MG 11/17/2020 12:00:00 AM EDT active Macrobid 100 MG eCW1 ([facility]) NITROFURANTOIN, MACROCRYSTALS 25 MG / Ni trofurantoin, Monohydrate 75 MG Oral Capsule [Macrobid] Macrobid 100 MG Macrobid 100 MG 11/17/2020 12:00:00 AM EDT active Macrobid 100 MG eCW1 ([facility]) NITROFURANTOIN, MACROCRYSTALS 25 MG / Ni trofurantoin, Monohydrate 75 MG Oral Capsule [Macrobid] Macrobid 100 MG Macrobid 100 MG 11/17/2020 12:00:00 AM EDT active Macrobid 100 MG eCW1 ([facility]) NITROFURANTOIN, MACROCRYSTALS 25 MG / Ni trofurantoin, Monohydrate 75 MG Oral Capsule [Macrobid] Macrobid 100 MG Macrobid 100 MG 11/17/2020 12:00:00 AM EDT active Macrobid 100 MG eCW1 ([facility]) NITROFURANTOIN, MACROCRYSTALS 25 MG / Ni trofurantoin, Monohydrate 75 MG Oral Capsule [Macrobid] Macrobid 100 MG Macrobid 100 MG 11/17/2020 12:00:00 AM EDT active Macrobid 100 MG eCW1 ([facility]) NITROFURANTOIN, MACROCRYSTALS 25 MG / Ni trofurantoin, Monohydrate 75 MG Oral Capsule [Macrobid] Macrobid 100 MG Macrobid 100 MG 11/17/2020 12:00:00 AM EDT active Macrobid 100 MG eCW1 ([facility]) NITROFURANTOIN, MACROCRYSTALS 25 MG / Ni trofurantoin, Monohydrate 75 MG Oral Capsule [Macrobid] Macrobid 100 MG Macrobid 100 MG 11/17/2020 12:00:00 AM EDT active Macrobid 100 MG eCW1 ([facility]) NITROFURANTOIN, MACROCRYSTALS 25 MG / Ni trofurantoin, Monohydrate 75 MG Oral Capsule [Macrobid] Macrobid 100 MG Macrobid 100 MG 11/17/2020 12:00:00 AM EDT active Macrobid 100 MG eCW1 ([facility]) NITROFURANTOIN, MACROCRYSTALS 25 MG / Ni trofurantoin, Monohydrate 75 MG Oral Capsule [Macrobid] Macrobid 100 MG Macrobid 100 MG 11/17/2020 12:00:00 AM EDT active Macrobid 100 MG eCW1 ([facility]) NITROFURANTOIN, MACROCRYSTALS 25 MG / Ni trofurantoin, Monohydrate 75 MG Oral Capsule [Macrobid] Macrobid 100 MG Macrobid 100 MG 11/17/2020 12:00:00 AM EDT active Macrobid 100 MG eCW1 ([facility]) NITROFURANTOIN, MACROCRYSTALS 25 MG / Ni trofurantoin, Monohydrate 75 MG Oral Capsule [Macrobid] Macrobid 100 MG Macrobid 100 MG 11/17/2020 12:00:00 AM EDT active Macrobid 100 MG eCW1 ([facility]) NITROFURANTOIN, MACROCRYSTALS 25 MG / Ni trofurantoin, Monohydrate 75 MG Oral Capsule [Macrobid] Macrobid 100 MG Macrobid 100 MG 11/17/2020 12:00:00 AM EDT active Macrobid 100 MG eCW1 ([facility]) NITROFURANTOIN, MACROCRYSTALS 25 MG / Ni trofurantoin, Monohydrate 75 MG Oral Capsule [Macrobid] Macrobid 100 MG Macrobid 100 MG 11/17/2020 12:00:00 AM EDT active eCW1 ([facility]) NITROFURANTOIN, MACROCRYSTALS 25 MG / Ni trofurantoin, Monohydrate 75 MG Oral Capsule [Macrobid] Macrobid 100 MG Macrobid 100 MG 11/17/2020 12:00:00 AM EDT active Macrobid 100 MG eCW1 ([facility]) Mupirocin 0.02 MG/MG Topical Ointment Mupirocin 2 % Mupiroci n 2 % 11/14/2020 12:00:00 AM EDT active Mupiroci n 2 % eCW1 ([facility]) Mupirocin 0.02 MG/MG Topical Ointment Mupirocin 2 % Mupiroci n 2 % 11/14/2020 12:00:00 AM EDT active Mupiroci n 2 % eCW1 ([facility]) Mupirocin 0.02 MG/MG Topical Ointment Mupirocin 2 % Mupiroci n 2 % 11/14/2020 12:00:00 AM EDT active Mupiroci n 2 % eCW1 ([facility]) Mupirocin 0.02 MG/MG Topical Ointment Mupirocin 2 % Mupiroci n 2 % 11/14/2020 12:00:00 AM EDT active Mupiroci n 2 % eCW1 ([facility]) ferric carboxymaltose 50 MG/ML Injectabl e Solution [Injectafer] Injectafer 750 MG/15ML Injectafer 750 MG/15ML 11/14/2020 12:00:00 AM EDT active Injectafer 750 MG/15ML eCW1 ([facility]) Mupirocin 0.02 MG/MG Topical Ointment Mupirocin 2 % Mupiroci n 2 % 11/14/2020 12:00:00 AM EDT active Mupiroci n 2 % eCW1 ([facility]) ferric carboxymaltose 50 MG/ML Injectabl e Solution [Injectafer] Injectafer 750 MG/15ML Injectafer 750 MG/15ML 11/14/2020 12:00:00 AM EDT active Injectafer 750 MG/15ML eCW1 ([facility]) ferric carboxymaltose 50 MG/ML Injectabl e Solution [Injectafer] Injectafer 750 MG/15ML Injectafer 750 MG/15ML 11/14/2020 12:00:00 AM EDT active Injectafer 750 MG/15ML eCW1 ([facility]) ferric carboxymaltose 50 MG/ML Injectabl e Solution [Injectafer] Injectafer 750 MG/15ML Injectafer 750 MG/15ML 11/14/2020 12:00:00 AM EDT active Injectafer 750 MG/15ML eCW1 ([facility]) Mupirocin 0.02 MG/MG Topical Ointment Mupirocin 2 % Mupiroci n 2 % 11/14/2020 12:00:00 AM EDT active Mupiroci n 2 % eCW1 ([facility]) Mupirocin 0.02 MG/MG Topical Ointment Mupirocin 2 % Mupiroci n 2 % 11/14/2020 12:00:00 AM EDT active Mupiroci n 2 % eCW1 ([facility]) ferric carboxymaltose 50 MG/ML Injectabl e Solution [Injectafer] Injectafer 750 MG/15ML Injectafer 750 MG/15ML 11/14/2020 12:00:00 AM EDT active Injectafer 750 MG/15ML eCW1 ([facility]) ferric carboxymaltose 50 MG/ML Injectabl e Solution [Injectafer] Injectafer 750 MG/15ML Injectafer 750 MG/15ML 11/14/2020 12:00:00 AM EDT active Injectafer 750 MG/15ML eCW1 ([facility]) ferric carboxymaltose 50 MG/ML Injectabl e Solution [Injectafer] Injectafer 750 MG/15ML Injectafer 750 MG/15ML 11/14/2020 12:00:00 AM EDT active Injectafer 750 MG/15ML eCW1 ([facility]) ferric carboxymaltose 50 MG/ML Injectabl e Solution [Injectafer] Injectafer 750 MG/15ML Injectafer 750 MG/15ML 11/14/2020 12:00:00 AM EDT active Injectafer 750 MG/15ML eCW1 ([facility]) Mupirocin 0.02 MG/MG Topical Ointment Mupirocin 2 % Mupiroci n 2 % 11/14/2020 12:00:00 AM EDT active Mupiroci n 2 % eCW1 ([facility]) Mupirocin 0.02 MG/MG Topical Ointment Mupirocin 2 % Mupiroci n 2 % 11/14/2020 12:00:00 AM EDT active Mupiroci n 2 % eCW1 ([facility]) ferric carboxymaltose 50 MG/ML Injectabl e Solution [Injectafer] Injectafer 750 MG/15ML Injectafer 750 MG/15ML 11/14/2020 12:00:00 AM EDT active Injectafer 750 MG/15ML eCW1 ([facility]) ferric carboxymaltose 50 MG/ML Injectabl e Solution [Injectafer] Injectafer 750 MG/15ML Injectafer 750 MG/15ML 11/14/2020 12:00:00 AM EDT active Injectafer 750 MG/15ML eCW1 ([facility]) Mupirocin 0.02 MG/MG Topical Ointment Mupirocin 2 % Mupiroci n 2 % 11/14/2020 12:00:00 AM EDT active Mupiroci n 2 % eCW1 ([facility]) ferric carboxymaltose 50 MG/ML Injectabl e Solution [Injectafer] Injectafer 750 MG/15ML Injectafer 750 MG/15ML 11/14/2020 12:00:00 AM EDT active Injectafer 750 MG/15ML eCW1 ([facility]) Mupirocin 0.02 MG/MG Topical Ointment Mupirocin 2 % Mupiroci n 2 % 11/14/2020 12:00:00 AM EDT active Mupiroci n 2 % eCW1 ([facility]) ferric carboxymaltose 50 MG/ML Injectabl e Solution [Injectafer] Injectafer 750 MG/15ML Injectafer 750 MG/15ML 11/14/2020 12:00:00 AM EDT active Injectafer 750 MG/15ML eCW1 ([facility]) Mupirocin 0.02 MG/MG Topical Ointment Mupirocin 2 % Mupiroci n 2 % 11/14/2020 12:00:00 AM EDT active Mupiroci n 2 % eCW1 ([facility]) Mupirocin 0.02 MG/MG Topical Ointment Mupirocin 2 % Mupiroci n 2 % 11/14/2020 12:00:00 AM EDT active Mupiroci n 2 % eCW1 ([facility]) ferric carboxymaltose 50 MG/ML Injectabl e Solution [Injectafer] Injectafer 750 MG/15ML Injectafer 750 MG/15ML 11/14/2020 12:00:00 AM EDT active Injectafer 750 MG/15ML eCW1 ([facility]) ferric carboxymaltose 50 MG/ML Injectabl e Solution [Injectafer] Injectafer 750 MG/15ML Injectafer 750 MG/15ML 11/14/2020 12:00:00 AM EDT active Injectafer 750 MG/15ML eCW1 ([facility]) ferric carboxymaltose 50 MG/ML Injectabl e Solution [Injectafer] Injectafer 750 MG/15ML Injectafer 750 MG/15ML 11/14/2020 12:00:00 AM EDT active Injectafer 750 MG/15ML eCW1 ([facility]) Mupirocin 0.02 MG/MG Topical Ointment Mupirocin 2 % Mupiroci n 2 % 11/14/2020 12:00:00 AM EDT active Mupiroci n 2 % eCW1 ([facility]) Mupirocin 0.02 MG/MG Topical Ointment Mupirocin 2 % Mupiroci n 2 % 11/14/2020 12:00:00 AM EDT active e CW1 ([facility]) Mupirocin 0.02 MG/MG Topical Ointment Mupirocin 2 % Mupiroci n 2 % 11/14/2020 12:00:00 AM EDT active Mupiroci n 2 % eCW1 ([facility]) ferric carboxymaltose 50 MG/ML Injectabl e Solution [Injectafer] Injectafer 750 MG/15ML Injectafer 750 MG/15ML 11/14/2020 12:00:00 AM EDT active Injectafer 750 MG/15ML eCW1 ([facility]) ferric carboxymaltose 50 MG/ML Injectabl e Solution [Injectafer] Injectafer 750 MG/15ML Injectafer 750 MG/15ML 11/14/2020 12:00:00 AM EDT active eCW1 ([facility]) Mupirocin 0.02 MG/MG Topical Ointment Mupirocin 2 % Mupiroci n 2 % 11/14/2020 12:00:00 AM EDT active Mupiroci n 2 % eCW1 ([facility]) Mupirocin 0.02 MG/MG Topical Ointment Mupirocin 2 % Mupiroci n 2 % 11/14/2020 12:00:00 AM EDT active Mupiroci n 2 % eCW1 ([facility]) ferric carboxymaltose 50 MG/ML Injectabl e Solution [Injectafer] Injectafer 750 MG/15ML Injectafer 750 MG/15ML 11/14/2020 12:00:00 AM EDT active Injectafer 750 MG/15ML eCW1 ([facility]) Mupirocin 0.02 MG/MG Topical Ointment Mupirocin 2 % Mupiroci n 2 % 11/14/2020 12:00:00 AM EDT active Mupiroci n 2 % eCW1 ([facility]) ferric carboxymaltose 50 MG/ML Injectabl e Solution [Injectafer] Injectafer 750 MG/15ML Injectafer 750 MG/15ML 11/14/2020 12:00:00 AM EDT active Injectafer 750 MG/15ML eCW1 ([facility]) magnesium citrate 58.2 MG/ML Oral Solution Magnesium Citrate 11/11/2020 12:00:00 AM EDT active MEDENT ([facility], ) POLYETHYLENE GLYCOL 3350 142 MG/ML Oral Solution [Miralax] M iralax 11/11/2020 12:00:00 AM EDT active M EDENT ([facility], ) Glucometer UNK 11/03/2020 12:00:00 AM EDT active Glucometer eCW1 ([facility]) Blood Glucose Test - Blood Glucose Test - 11/03/2020 12:00:00 AM EDT active Blood Glucose Test - eCW1 ([facility]) Blood Glucose Test - Blood Glucose Test - 11/03/2020 12:00:00 AM EDT active Blood Glucose Test - eCW1 ([facility]) Glucometer UNK 11/03/2020 12:00:00 AM EDT active Glucometer eCW1 ([facility]) Blood Glucose Test - Blood Glucose Test - 11/03/2020 12:00:00 AM EDT active Blood Glucose Test - eCW1 ([facility]) Blood Glucose Test - Blood Glucose Test - 11/03/2020 12:00:00 AM EDT active Blood Glucose Test - eCW1 ([facility]) Blood Glucose Test - Blood Glucose Test - 11/03/2020 12:00:00 AM EDT active Blood Glucose Test - eCW1 ([facility]) Lancets - Lancets - 11/03/2020 12:00:00 AM EDT act андрей Lancets - eCW1 ([facility]) Glucometer UNK 11/03/2020 12:00:00 AM EDT active Glucometer eCW1 ([facility]) Glucometer UNK 11/03/2020 12:00:00 AM EDT active Glucometer eCW1 ([facility]) Glucometer UNK 11/03/2020 12:00:00 AM EDT active Glucometer eCW1 ([facility]) Blood Glucose Test - Blood Glucose Test - 11/03/2020 12:00:00 AM EDT active Blood Glucose Test - eCW1 ([facility]) Glucometer UNK 11/03/2020 12:00:00 AM EDT active Glucometer eCW1 ([facility]) Blood Glucose Test - Blood Glucose Test - 11/03/2020 12:00:00 AM EDT active Blood Glucose Test - eCW1 ([facility]) Blood Glucose Test - Blood Glucose Test - 11/03/2020 12:00:00 AM EDT active Blood Glucose Test - eCW1 ([facility]) Glucometer UNK 11/03/2020 12:00:00 AM EDT active Glucometer eCW1 ([facility]) Lancets - Lancets - 11/03/2020 12:00:00 AM EDT act андрей Lancets - eCW1 ([facility]) Blood Glucose Test - Blood Glucose Test - 11/03/2020 12:00:00 AM EDT active Blood Glucose Test - eCW1 ([facility]) Blood Glucose Test - Blood Glucose Test - 11/03/2020 12:00:00 AM EDT active Blood Glucose Test - eCW1 ([facility]) Lancets - Lancets - 11/03/2020 12:00:00 AM EDT act андрей Lancets - eCW1 ([facility]) Blood Glucose Test - Blood Glucose Test - 11/03/2020 12:00:00 AM EDT active Blood Glucose Test - eCW1 ([facility]) Lancets - Lancets - 11/03/2020 12:00:00 AM EDT act андрей Lancets - eCW1 ([facility]) Lancets - Lancets - 11/03/2020 12:00:00 AM EDT act андрей Lancets - eCW1 ([facility]) Lancets - Lancets - 11/03/2020 12:00:00 AM EDT act андрей Lancets - eCW1 ([facility]) Lancets - Lancets - 11/03/2020 12:00:00 AM EDT act андрей eCW1 ([facility]) Glucometer UNK 11/03/2020 12:00:00 AM EDT active Glucometer eCW1 ([facility]) Lancets - Lancets - 11/03/2020 12:00:00 AM EDT act андрей Lancets - eCW1 ([facility]) Blood Glucose Test - Blood Glucose Test - 11/03/2020 12:00:00 AM EDT active Blood Glucose Test - eCW1 ([facility]) Glucometer UNK 11/03/2020 12:00:00 AM EDT active Glucometer eCW1 ([facility]) Glucometer UNK 11/03/2020 12:00:00 AM EDT active Glucometer eCW1 ([facility]) Lancets - Lancets - 11/03/2020 12:00:00 AM EDT act андрей Lancets - eCW1 ([facility]) Blood Glucose Test - Blood Glucose Test - 11/03/2020 12:00:00 AM EDT active Blood Glucose Test - eCW1 ([facility]) Glucometer UNK 11/03/2020 12:00:00 AM EDT active Glucometer eCW1 ([facility]) Blood Glucose Test - Blood Glucose Test - 11/03/2020 12:00:00 AM EDT active Blood Glucose Test - eCW1 ([facility]) Lancets - Lancets - 11/03/2020 12:00:00 AM EDT act андрей Lancets - eCW1 ([facility]) Glucometer UNK 11/03/2020 12:00:00 AM EDT active Glucometer eCW1 ([facility]) Blood Glucose Test - Blood Glucose Test - 11/03/2020 12:00:00 AM EDT active Blood Glucose Test - eCW1 ([facility]) Lancets - Lancets - 11/03/2020 12:00:00 AM EDT act андрей Lancets - eCW1 ([facility]) Blood Glucose Test - Blood Glucose Test - 11/03/2020 12:00:00 AM EDT active Blood Glucose Test - eCW1 ([facility]) Glucometer UNK 11/03/2020 12:00:00 AM EDT active Glucometer eCW1 ([facility]) Lancets - Lancets - 11/03/2020 12:00:00 AM EDT act андрей Lancets - eCW1 ([facility]) Lancets - Lancets - 11/03/2020 12:00:00 AM EDT act андрей Lancets - eCW1 ([facility]) Blood Glucose Test - Blood Glucose Test - 11/03/2020 12:00:00 AM EDT active Blood Glucose Test - eCW1 ([facility]) Glucometer UNK 11/03/2020 12:00:00 AM EDT active Glucometer eCW1 ([facility]) Blood Glucose Test - Blood Glucose Test - 11/03/2020 12:00:00 AM EDT active Blood Glucose Test - eCW1 ([facility]) Glucometer UNK 11/03/2020 12:00:00 AM EDT active Glucometer eCW1 ([facility]) Blood Glucose Test - Blood Glucose Test - 11/03/2020 12:00:00 AM EDT active Blood Glucose Test - eCW1 ([facility]) Lancets - Lancets - 11/03/2020 12:00:00 AM EDT act андрей Lancets - eCW1 ([facility]) Blood Glucose Test - Blood Glucose Test - 11/03/2020 12:00:00 AM EDT active Blood Glucose Test - eCW1 ([facility]) Lancets - Lancets - 11/03/2020 12:00:00 AM EDT act андрей Lancets - eCW1 ([facility]) Lancets - Lancets - 11/03/2020 12:00:00 AM EDT act андрей Lancets - eCW1 ([facility]) Lancets - Lancets - 11/03/2020 12:00:00 AM EDT act андрей Lancets - eCW1 ([facility]) Glucometer UNK 11/03/2020 12:00:00 AM EDT active Glucometer eCW1 ([facility]) Glucometer UNK 11/03/2020 12:00:00 AM EDT active Glucometer eCW1 ([facility]) Lancets - Lancets - 11/03/2020 12:00:00 AM EDT act андрей Lancets - eCW1 ([facility]) Lancets - Lancets - 11/03/2020 12:00:00 AM EDT act андрей Lancets - eCW1 ([facility]) Lancets - Lancets - 11/03/2020 12:00:00 AM EDT act андрей Lancets - eCW1 ([facility]) Glucometer UNK 11/03/2020 12:00:00 AM EDT active Glucometer eCW1 ([facility]) Blood Glucose Test - Blood Glucose Test - 11/03/2020 12:00:00 AM EDT active Blood Glucose Test - eCW1 ([facility] [facility] Blood Glucose Test - Blood Glucose Test - 11/03/2020 12:00:00 AM EDT active Blood Glucose Test - eCW1 ([facility]) Glucometer UNK 11/03/2020 12:00:00 AM EDT active Glucometer eCW1 ([facility]) Lancets - Lancets - 11/03/2020 12:00:00 AM EDT act андрей Lancets - eCW1 ([facility]) Blood Glucose Test - Blood Glucose Test - 11/03/2020 12:00:00 AM EDT active Blood Glucose Test - eCW1 ([facility]) Glucometer UNK 11/03/2020 12:00:00 AM EDT active Glucometer eCW1 ([facility]) Lancets - Lancets - 11/03/2020 12:00:00 AM EDT act андрей Lancets - eCW1 ([facility]) Lancets - Lancets - 11/03/2020 12:00:00 AM EDT act андрей Lancets - eCW1 ([facility]) Glucometer UNK 11/03/2020 12:00:00 AM EDT active eCW1 ([facility]) Lancets - Lancets - 11/03/2020 12:00:00 AM EDT act андрей Lancets - eCW1 ([facility]) Glucometer UNK 11/03/2020 12:00:00 AM EDT active Glucometer eCW1 ([facility]) Blood Glucose Test - Blood Glucose Test - 11/03/2020 12:00:00 AM EDT active Blood Glucose Test - eCW1 ([facility]) Blood Glucose Test - Blood Glucose Test - 11/03/2020 12:00:00 AM EDT active eCW1 ([facility]) Blood Glucose Test - Blood Glucose Test - 11/03/2020 12:00:00 AM EDT active Blood Glucose Test - eCW1 ([facility]) Lancets - Lancets - 11/03/2020 12:00:00 AM EDT act андрей Lancets - eCW1 ([facility]) Blood Glucose Test - Blood Glucose Test - 11/03/2020 12:00:00 AM EDT active Blood Glucose Test - eCW1 ([facility]) Glucometer UNK 11/03/2020 12:00:00 AM EDT active Glucometer eCW1 ([facility]) Glucometer UNK 11/03/2020 12:00:00 AM EDT active Glucometer eCW1 ([facility]) Glucometer UNK 11/03/2020 12:00:00 AM EDT active Glucometer eCW1 ([facility]) Lancets - Lancets - 11/03/2020 12:00:00 AM EDT act андрей Lancets - eCW1 ([facility]) Glucometer UNK 11/03/2020 12:00:00 AM EDT active Glucometer eCW1 ([facility]) Lancets - Lancets - 11/03/2020 12:00:00 AM EDT act андрей Lancets - eCW1 ([facility]) Glucometer UNK 11/03/2020 12:00:00 AM EDT active Glucometer eCW1 ([facility]) POLYETHYLENE GLYCOL 3350 142 MG/ML Oral Solution [Miralax] M iralax 10/15/2020 12:00:00 AM EDT ORAL active M EDENT ([facility]) Alprazolam 1 MG Oral Tablet Alprazolam 08/11/2020 12:00:00 AM EDT ORAL active MEDENT ([facility]) Fluconazole 150 MG Oral Tablet [Diflucan] Diflucan 08/11/2020 1 2:00:00 AM EDT ORAL active MEDENT ([facility]) Botox 50 Units For Waste For 200 Units JW Modifier 07/23/2020 12:00:00 AM EDT completed MEDENT ([facility]) Medication administered onsite Botox 200 Units- I Vial 07/23/2020 12:00:00 AM EDT completed MEDENT ([facility]) Medication administered onsite cefdinir 300 MG Oral Capsule Cefdinir 07/16/2020 12:00:00 AM EDT ORAL completed MEDENT ([facility]) 60 ACTUAT Fluticasone propionate 0.25 MG /ACTUAT / salmeterol 0.05 MG/ACTUAT Dry Powder Inhaler [Advair] Advair Diskus 250-50 MCG/DOSE Advair Diskus 250-50 MCG/DOSE 07/07/2020 12:00:00 AM EDT 1.0 {puff} activ e Advair Diskus 250-50 MCG/DOSE eCW1 ([facility]) 60 ACTUAT Fluticasone propionate 0.25 MG /ACTUAT / salmeterol 0.05 MG/ACTUAT Dry Powder Inhaler [Advair] Advair Diskus 250-50 MCG/DOSE Advair Diskus 250-50 MCG/DOSE 07/07/2020 12:00:00 AM EDT 1.0 {puff} activ e Advair Diskus 250-50 MCG/DOSE eCW1 ([facility]) 60 ACTUAT Fluticasone propionate 0.25 MG /ACTUAT / salmeterol 0.05 MG/ACTUAT Dry Powder Inhaler [Advair] Advair Diskus 250-50 MCG/DOSE Advair Diskus 250-50 MCG/DOSE 07/07/2020 12:00:00 AM EDT 1.0 {puff} activ e Advair Diskus 250-50 MCG/DOSE eCW1 ([facility]) 60 ACTUAT Fluticasone propionate 0.25 MG /ACTUAT / salmeterol 0.05 MG/ACTUAT Dry Powder Inhaler [Advair] Advair Diskus 250-50 MCG/DOSE Advair Diskus 250-50 MCG/DOSE 07/07/2020 12:00:00 AM EDT 1.0 {puff} activ e Advair Diskus 250-50 MCG/DOSE eCW1 ([facility]) 60 ACTUAT Fluticasone propionate 0.25 MG /ACTUAT / salmeterol 0.05 MG/ACTUAT Dry Powder Inhaler [Advair] Advair Diskus 250-50 MCG/DOSE Advair Diskus 250-50 MCG/DOSE 07/07/2020 12:00:00 AM EDT 1.0 {puff} activ e Advair Diskus 250-50 MCG/DOSE eCW1 ([facility]) 60 ACTUAT Fluticasone propionate 0.25 MG /ACTUAT / salmeterol 0.05 MG/ACTUAT Dry Powder Inhaler [Advair] Advair Diskus 250-50 MCG/DOSE Advair Diskus 250-50 MCG/DOSE 07/07/2020 12:00:00 AM EDT 1.0 {puff} activ e Advair Diskus 250-50 MCG/DOSE eCW1 ([facility]) 60 ACTUAT Fluticasone propionate 0.25 MG /ACTUAT / salmeterol 0.05 MG/ACTUAT Dry Powder Inhaler [Advair] Advair Diskus 250-50 MCG/DOSE Advair Diskus 250-50 MCG/DOSE 07/07/2020 12:00:00 AM EDT 1.0 {puff} activ e Advair Diskus 250-50 MCG/DOSE eCW1 ([facility]) 60 ACTUAT Fluticasone propionate 0.25 MG /ACTUAT / salmeterol 0.05 MG/ACTUAT Dry Powder Inhaler [Advair] Advair Diskus 250-50 MCG/DOSE Advair Diskus 250-50 MCG/DOSE 07/07/2020 12:00:00 AM EDT 1.0 {puff} activ e Advair Diskus 250-50 MCG/DOSE eCW1 ([facility]) 60 ACTUAT Fluticasone propionate 0.25 MG /ACTUAT / salmeterol 0.05 MG/ACTUAT Dry Powder Inhaler [Advair] Advair Diskus 250-50 MCG/DOSE Advair Diskus 250-50 MCG/DOSE 07/07/2020 12:00:00 AM EDT 1.0 {puff} activ e Advair Diskus 250-50 MCG/DOSE eCW1 ([facility]) 60 ACTUAT Fluticasone propionate 0.25 MG /ACTUAT / salmeterol 0.05 MG/ACTUAT Dry Powder Inhaler [Advair] Advair Diskus 250-50 MCG/DOSE Advair Diskus 250-50 MCG/DOSE 07/07/2020 12:00:00 AM EDT 1.0 {puff} activ e Advair Diskus 250-50 MCG/DOSE eCW1 ([facility]) 60 ACTUAT Fluticasone propionate 0.25 MG /ACTUAT / salmeterol 0.05 MG/ACTUAT Dry Powder Inhaler [Advair] Advair Diskus 250-50 MCG/DOSE Advair Diskus 250-50 MCG/DOSE 07/07/2020 12:00:00 AM EDT 1.0 {puff} activ e Advair Diskus 250-50 MCG/DOSE eCW1 ([facility]) 60 ACTUAT Fluticasone propionate 0.25 MG /ACTUAT / salmeterol 0.05 MG/ACTUAT Dry Powder Inhaler [Advair] Advair Diskus 250-50 MCG/DOSE Advair Diskus 250-50 MCG/DOSE 07/07/2020 12:00:00 AM EDT 1.0 {puff} activ e Advair Diskus 250-50 MCG/DOSE eCW1 ([facility]) 60 ACTUAT Fluticasone propionate 0.25 MG /ACTUAT / salmeterol 0.05 MG/ACTUAT Dry Powder Inhaler [Advair] Advair Diskus 250-50 MCG/DOSE Advair Diskus 250-50 MCG/DOSE 07/07/2020 12:00:00 AM EDT 1.0 {puff} activ e Advair Diskus 250-50 MCG/DOSE eCW1 ([facility]) Alprazolam 1 MG Oral Tablet Alprazolam 05/29/2020 12:00:00 AM EDT ORAL completed MEDENT ([facility] POLYETHYLENE GLYCOL 3350 142 MG/ML Oral Solution [Dawn lax] MiraLax 17 GM/SCOOP MiraLax 17 GM/SCOOP 05/26/2020 12:00:00 AM EDT active MiraLax 17 GM/SCOOP eCW1 ([facility]) POLYETHYLENE GLYCOL 3350 142 MG/ML Oral Solution [Dawn lax] MiraLax 17 GM/SCOOP MiraLax 17 GM/SCOOP 05/26/2020 12:00:00 AM EDT active MiraLax 17 GM/SCOOP eCW1 ([facility]) POLYETHYLENE GLYCOL 3350 142 MG/ML Oral Solution [Dawn lax] MiraLax 17 GM/SCOOP MiraLax 17 GM/SCOOP 05/26/2020 12:00:00 AM EDT active MiraLax 17 GM/SCOOP eCW1 ([facility]) POLYETHYLENE GLYCOL 3350 142 MG/ML Oral Solution [Dawn lax] MiraLax 17 GM/SCOOP MiraLax 17 GM/SCOOP 05/26/2020 12:00:00 AM EDT active MiraLax 17 GM/SCOOP eCW1 ([facility]) POLYETHYLENE GLYCOL 3350 142 MG/ML Oral Solution [Dawn lax] MiraLax 17 GM/SCOOP MiraLax 17 GM/SCOOP 05/26/2020 12:00:00 AM EDT active MiraLax 17 GM/SCOOP eCW1 ([facility]) POLYETHYLENE GLYCOL 3350 142 MG/ML Oral Solution [Dawn lax] MiraLax 17 GM/SCOOP MiraLax 17 GM/SCOOP 05/26/2020 12:00:00 AM EDT active MiraLax 17 GM/SCOOP eCW1 ([facility]) POLYETHYLENE GLYCOL 3350 142 MG/ML Oral Solution [Dawn lax] MiraLax 17 GM/SCOOP MiraLax 17 GM/SCOOP 05/26/2020 12:00:00 AM EDT active MiraLax 17 GM/SCOOP eCW1 ([facility]) POLYETHYLENE GLYCOL 3350 142 MG/ML Oral Solution [Dawn lax] MiraLax 17 GM/SCOOP MiraLax 17 GM/SCOOP 05/26/2020 12:00:00 AM EDT active MiraLax 17 GM/SCOOP eCW1 ([facility]) POLYETHYLENE GLYCOL 3350 142 MG/ML Oral Solution [Dawn lax] MiraLax 17 GM/SCOOP MiraLax 17 GM/SCOOP 05/26/2020 12:00:00 AM EDT active MiraLax 17 GM/SCOOP eCW1 ([facility]) POLYETHYLENE GLYCOL 3350 142 MG/ML Oral Solution [Dawn lax] MiraLax 17 GM/SCOOP MiraLax 17 GM/SCOOP 05/26/2020 12:00:00 AM EDT active MiraLax 17 GM/SCOOP eCW1 ([facility]) POLYETHYLENE GLYCOL 3350 142 MG/ML Oral Solution [Dawn lax] MiraLax 17 GM/SCOOP MiraLax 17 GM/SCOOP 05/26/2020 12:00:00 AM EDT active MiraLax 17 GM/SCOOP eCW1 ([facility]) 60 ACTUAT Albuterol 0.09 MG/ACTUAT Metered Dose Inhaler Albu terol Sulfate HFA 04/25/2020 12:00:00 AM EST RESPIRATORY active MEDENT ([facility] ) NITROFURANTOIN, MACROCRYSTALS 50 MG Oral Capsule [Macrodanti n] Macrodantin 04/09/2020 12:00:00 AM EST ORAL completed MEDENT ([facility] [employer] [facility]) Ciprofloxacin 500 MG Oral Tablet Ciprofloxacin HCL 04/09/2020 12:00 :00 AM EST ORAL completed [facility] ([facility] Cyclobenzaprine hydrochloride 10 MG Oral Tablet Cyclob enzaprine HCl 10 MG Cyclobenzaprine HCl 10 MG 02/07/2020 12:00:00 AM EST active Cyclobenzaprine HCl 10 MG eCW1 ([facility]) Cyclobenzaprine hydrochloride 10 MG Oral Tablet Cyclob enzaprine HCl 10 MG Cyclobenzaprine HCl 10 MG 02/07/2020 12:00:00 AM EST active Cyclobenzaprine HCl 10 MG eCW1 ([facility]) Cyclobenzaprine hydrochloride 5 MG Oral Tablet Cyclobe nzaprine HCl 5 MG Cyclobenzaprine HCl 5 MG 02/07/2020 12:00:00 AM EST active Cyclobenzaprine HCl 5 MG eCW1 ([facility]) Cyclobenzaprine hydrochloride 10 MG Oral Tablet Cyclob enzaprine HCl 10 MG Cyclobenzaprine HCl 10 MG 02/07/2020 12:00:00 AM EST active Cyclobenzaprine HCl 10 MG eCW1 ([facility]) Metronidazole 500 MG Oral Tablet Metronidazole 01/14/2020 12:00:00 AM EST ORAL active MEDENT ([facility] [employer] [facility]) Tamsulosin hydrochloride 0.4 MG Oral Capsule Tamsulosin HCL 01/10/2020 12:00:00 AM EST active MEDENT ([facility] [employer] [facility]) NITROFURANTOIN, MACROCRYSTALS 25 MG / Ni trofurantoin, Monohydrate 75 MG Oral Capsule [Macrobid] Macrobid 01/10/2020 12:00:00 AM EST ORAL completed [facility]ENT ([facility] Ciprofloxacin 250 MG Oral Tablet Ciprofloxacin HCL 12/13/2019 12:00 :00 AM EDT ORAL completed MEDENT ([facility]) cefdinir 300 MG Oral Capsule cefdinir 300 mg capsule cefdinir 30 0 mg capsule completed cefdinir 300 M G Oral Capsule MARILIA ([facility]) Methylprednisolone 4 MG Oral Tablet methylprednisolone 4 mg tablet 1 tab daily methylprednisolone 4 mg tablet 1 tab daily completed methylprednisolone 4 MG Oral Tablet MARILIA ([facility]) Doxycycline Monohydrate 100 MG Oral Caps ule doxycycline monohydrate 100 mg capsule TAKE ONE CAPSULE BY MOUTH TWICE DAILY FOR SEVEN DAYS doxycycline monohydrate 100 mg capsule TAKE ONE CAPSULE BY MOUTH TWICE DAILY FOR SEVEN DAYS completed doxycycline mo nohydrate 100 MG Oral Capsule MARILIA ([facility]) cefdinir 300 MG Oral Capsule cefdinir 300 mg capsule cefdinir 30 0 mg capsule completed cefdinir 300 M G Oral Capsule MARILIA ([facility]) Amoxicillin 500 MG / Clavulanate 125 MG Oral Tablet amoxicillin 500 mg-potassium clavulanate 125 mg tablet TAKE ONE TABLET BY MOUTH EVERY TWELVE HOURS amoxicillin 500 mg-potassium clavulanate 125 mg tablet TAKE ONE TABLET BY MOUTH EVERY TWELVE HOURS completed amoxicillin 500 MG / clavulanate 125 MG Oral Tablet MARILIA ([facility]) 0.3 ML Enoxaparin sodium 100 MG/ML Prefi lled Syringe enoxaparin 30 mg/0.3 mL subcutaneous syringe INJECT 0.3 MILLILITERS SUBCUTANEOUSLY EVERY 12 HOURS FOR TWO WEEKS enoxaparin 30 mg/0.3 mL subcutaneous syr travis INJECT 0.3 MILLILITERS SUBCUTANEOUSLY EVERY 12 HOURS FOR TWO WEEKS completed 0.3 ML enoxaparin sodium 100 MG/ML Prefilled Syringe MARILIA ([facility]) Methylprednisolone 4 MG Oral Tablet methylprednisolone 4 mg tablet 1 tab daily methylprednisolone 4 mg tablet 1 tab daily completed methylprednisolone 4 MG Oral Tablet MARILIA ([facility]) tramadol hydrochloride 50 MG Oral Tablet tramadol 50 mg tablet TAKE ONE TABLET BY MOUTH EVERY 6 HOURS NEEDED FOR PAIN MAX DAILY DOSE FOUR TABLETS tramadol 50 mg tablet TAKE ONE TABLET BY MOUTH EVERY 6 HOURS NEEDED FOR PAIN MAX DAILY DOSE FOUR TABLETS completed tramadol hydrochloride 50 MG Oral Tablet MARILIA ([facility]) Oxycodone Hydrochloride 5 MG Oral Tablet oxycodone 5 mg tablet TAKE 1 TO 2 TABLETS BY MOUTH EVERY FOUR HOURS NEEDED FOR PAIN MAX DAILY DOSE 12 CAPSULES oxycodone 5 mg tablet TAKE 1 TO 2 TABLETS BY MOUTH EVERY FOUR HOURS NEEDED FOR PAIN MAX DAILY DOSE 12 CAPSULES co mpleted oxycodone hydrochloride 5 MG Oral Tablet MARILIA ([facility]) Prednisone 20 MG Oral Tablet prednisone 20 mg tablet TAKE ONE TABLET BY MOUTH ONCE DAILY FOR FIVE DAYS prednisone 20 mg tablet TAKE ONE TABLET BY MOUTH ONCE DAILY FOR FIVE DAYS completed pr ednisone 20 MG Oral Tablet MARILIA ([facility]) glimepiride 1 MG Oral Tablet glimepiride 1 mg tablet glimepiride 1 mg tablet completed glimepiride 1 MG Oral Tablet MARILIA ([facility]) Alprazolam 1 MG Oral Tablet alprazolam 1 mg tablet alprazolam 1 mg ta blet completed alprazolam 1 MG Oral Tablet MARILIA ([facility]) Alprazolam 1 MG Oral Tablet alprazolam 1 mg tablet alprazolam 1 mg ta blet completed alprazolam 1 MG Oral Tablet MARILIA ([facility]) 0.3 ML Enoxaparin sodium 100 MG/ML Prefi lled Syringe enoxaparin 30 mg/0.3 mL subcutaneous syringe INJECT 0.3 MILLILITERS SUBCUTANEOUSLY EVERY 12 HOURS FOR TWO WEEKS enoxaparin 30 mg/0.3 mL subcutaneous syr travis INJECT 0.3 MILLILITERS SUBCUTANEOUSLY EVERY 12 HOURS FOR TWO WEEKS completed 0.3 ML enoxaparin sodium 100 MG/ML Prefilled Syringe MARILIA ([facility]) Methylprednisolone 2 MG Oral Tablet [Med rol] Medrol 2 mg tablet 1 tablet every other day Medrol 2 mg tablet 1 tablet every other day completed methylprednisolone 2 MG Oral Tablet [Medrol] MARILIA ([facility]) Doxycycline Monohydrate 100 MG Oral Caps ule doxycycline monohydrate 100 mg capsule TAKE ONE CAPSULE BY MOUTH TWICE DAILY FOR SEVEN DAYS doxycycline monohydrate 100 mg capsule TAKE ONE CAPSULE BY MOUTH TWICE DAILY FOR SEVEN DAYS completed doxycycline mo nohydrate 100 MG Oral Capsule MARILIA ([facility]) Prednisone 20 MG Oral Tablet prednisone 20 mg tablet TAKE ONE TABLET BY MOUTH ONCE DAILY FOR FIVE DAYS prednisone 20 mg tablet TAKE ONE TABLET BY MOUTH ONCE DAILY FOR FIVE DAYS completed pr ednisone 20 MG Oral Tablet MARILIA ([facility]) Amoxicillin 500 MG / Clavulanate 125 MG Oral Tablet amoxicillin 500 mg-potassium clavulanate 125 mg tablet TAKE ONE TABLET BY MOUTH EVERY TWELVE HOURS amoxicillin 500 mg-potassium clavulanate 125 mg tablet TAKE ONE TABLET BY MOUTH EVERY TWELVE HOURS completed amoxicillin 500 MG / clavulanate 125 MG Oral Tablet MARILIA ([facility]) Alprazolam 1 MG Oral Tablet alprazolam 1 mg tablet alprazolam 1 mg ta blet completed alprazolam 1 MG Oral Tablet MARILIA ([facility]) 0.3 ML Enoxaparin sodium 100 MG/ML Prefi lled Syringe enoxaparin 30 mg/0.3 mL subcutaneous syringe INJECT 0.3 MILLILITERS SUBCUTANEOUSLY EVERY 12 HOURS FOR TWO WEEKS enoxaparin 30 mg/0.3 mL subcutaneous syr travis INJECT 0.3 MILLILITERS SUBCUTANEOUSLY EVERY 12 HOURS FOR TWO WEEKS completed 0.3 ML enoxaparin sodium 100 MG/ML Prefilled Syringe MARILIA ([facility]) Prednisone 20 MG Oral Tablet prednisone 20 mg tablet TAKE ONE TABLET BY MOUTH ONCE DAILY FOR FIVE DAYS prednisone 20 mg tablet TAKE ONE TABLET BY MOUTH ONCE DAILY FOR FIVE DAYS completed pr ednisone 20 MG Oral Tablet MARILIA ([facility]) 0.3 ML Enoxaparin sodium 100 MG/ML Prefi lled Syringe enoxaparin 30 mg/0.3 mL subcutaneous syringe INJECT 0.3 MILLILITERS SUBCUTANEOUSLY EVERY 12 HOURS FOR TWO WEEKS enoxaparin 30 mg/0.3 mL subcutaneous syr travis INJECT 0.3 MILLILITERS SUBCUTANEOUSLY EVERY 12 HOURS FOR TWO WEEKS completed 0.3 ML enoxaparin sodium 100 MG/ML Prefilled Syringe MARILIA ([facility]) 0.3 ML Enoxaparin sodium 100 MG/ML Prefi lled Syringe enoxaparin 30 mg/0.3 mL subcutaneous syringe INJECT 0.3 MILLILITERS SUBCUTANEOUSLY EVERY 12 HOURS FOR TWO WEEKS enoxaparin 30 mg/0.3 mL subcutaneous syr travis INJECT 0.3 MILLILITERS SUBCUTANEOUSLY EVERY 12 HOURS FOR TWO WEEKS completed 0.3 ML enoxaparin sodium 100 MG/ML Prefilled Syringe MARILIA ([facility]) Amoxicillin 500 MG / Clavulanate 125 MG Oral Tablet amoxicillin 500 mg-potassium clavulanate 125 mg tablet TAKE ONE TABLET BY MOUTH EVERY TWELVE HOURS amoxicillin 500 mg-potassium clavulanate 125 mg tablet TAKE ONE TABLET BY MOUTH EVERY TWELVE HOURS completed amoxicillin 500 MG / clavulanate 125 MG Oral Tablet MARILIA ([facility]) Doxycycline Monohydrate 100 MG Oral Caps ule doxycycline monohydrate 100 mg capsule TAKE ONE CAPSULE BY MOUTH TWICE DAILY FOR SEVEN DAYS doxycycline monohydrate 100 mg capsule TAKE ONE CAPSULE BY MOUTH TWICE DAILY FOR SEVEN DAYS completed doxycycline mo nohydrate 100 MG Oral Capsule MARILIA ([facility]) Acetaminophen 325 MG / Oxycodone Hydroch loride 5 MG Oral Tablet oxycodone- acetaminophen 5 mg-325 mg tablet oxycodone-acetaminophen 5 mg-325 mg tablet completed acetaminop hen 325 MG / oxycodone hydrochloride 5 MG Oral Tablet MARILIA ([facility]) glimepiride 1 MG Oral Tablet glimepiride 1 mg tablet glimepiride 1 mg tablet completed glimepiride 1 MG Oral Tablet MARILIA ([facility]) Estradiol 0.1 MG/ML Vaginal Cream estradiol 0.01% (0.1 mg/gram) vaginal cream estradiol 0.01% (0.1 mg/gram) vaginal cream completed estradiol 0.1 MG/ML Vaginal Cream MARILIA ([facility]) Prednisone 20 MG Oral Tablet prednisone 20 mg tablet TAKE ONE TABLET BY MOUTH ONCE DAILY FOR FIVE DAYS prednisone 20 mg tablet TAKE ONE TABLET BY MOUTH ONCE DAILY FOR FIVE DAYS completed pr ednisone 20 MG Oral Tablet MARILIA ([facility]) glimepiride 2 MG Oral Tablet glimepiride 2 mg tablet TAKE ONE TABLET BY MOUTH @8AM and TAKE ONE TABLET @8PM glimepiride 2 mg tablet TAKE ONE TABLET BY MOUTH @8AM and TAKE ONE TABLET @8PM complete d glimepiride 2 MG Oral Tablet MARILIA ([facility]) Cyclobenzaprine hydrochloride 5 MG Oral Tablet cyclobenzaprine 5 mg tablet TAKE ONE TABLET BY MOUTH @8AM and TAKE ONE TABLET @12PM and TAKE ONE TABLET @8PM cyclobenzaprine 5 mg tablet TAKE ONE TABLET BY MOUTH @8AM and TAKE ONE TABLET @12PM and TAKE ONE TABLET @8PM complet ed cyclobenzaprine hydrochloride 5 MG Oral Tablet MARILIA ([facility]) Acetaminophen 325 MG / Oxycodone Hydroch loride 5 MG Oral Tablet oxycodone- acetaminophen 5 mg-325 mg tablet oxycodone-acetaminophen 5 mg-325 mg tablet completed acetaminop hen 325 MG / oxycodone hydrochloride 5 MG Oral Tablet MARILIA ([facility]) tramadol hydrochloride 50 MG Oral Tablet tramadol 50 mg tablet TAKE ONE TABLET BY MOUTH EVERY 6 HOURS NEEDED FOR PAIN MAX DAILY DOSE FOUR TABLETS tramadol 50 mg tablet TAKE ONE TABLET BY MOUTH EVERY 6 HOURS NEEDED FOR PAIN MAX DAILY DOSE FOUR TABLETS completed tramadol hydrochloride 50 MG Oral Tablet MARILIA ([facility]) Estradiol 0.1 MG/ML Vaginal Cream estradiol 0.01% (0.1 mg/gram) vaginal cream estradiol 0.01% (0.1 mg/gram) vaginal cream completed estradiol 0.1 MG/ML Vaginal Cream MARILIA ([facility]) Estradiol 0.1 MG/ML Vaginal Cream estradiol 0.01% (0.1 mg/gram) vaginal cream estradiol 0.01% (0.1 mg/gram) vaginal cream completed estradiol 0.1 MG/ML Vaginal Cream MARILIA ([facility]) Prednisone 20 MG Oral Tablet prednisone 20 mg tablet TAKE ONE TABLET BY MOUTH ONCE DAILY FOR FIVE DAYS prednisone 20 mg tablet TAKE ONE TABLET BY MOUTH ONCE DAILY FOR FIVE DAYS completed pr ednisone 20 MG Oral Tablet MARILIA ([facility]) Doxycycline Monohydrate 100 MG Oral Caps ule doxycycline monohydrate 100 mg capsule TAKE ONE CAPSULE BY MOUTH TWICE DAILY FOR SEVEN DAYS doxycycline monohydrate 100 mg capsule TAKE ONE CAPSULE BY MOUTH TWICE DAILY FOR SEVEN DAYS completed doxycycline mo nohydrate 100 MG Oral Capsule MARILIA ([facility]) Methylprednisolone 4 MG Oral Tablet methylprednisolone 4 mg tablet 1 tab daily methylprednisolone 4 mg tablet 1 tab daily completed methylprednisolone 4 MG Oral Tablet MARILIA ([facility]) Ciprofloxacin 250 MG Oral Tablet ciprofl oxacin 250 mg tablet TAKE ONE TABLET BY MOUTH TWICE DAILY FOR 3 DAYS ciprofloxacin 250 mg tablet TAKE ONE TAB LET BY MOUTH TWICE DAILY FOR 3 DAYS completed ciprofloxacin 250 MG Oral Tablet MARILIA ([facility]) Methylprednisolone 2 MG Oral Tablet [Med rol] Medrol 2 mg tablet 1 tablet every other day Medrol 2 mg tablet 1 tablet every other day completed methylprednisolone 2 MG Oral Tablet [Medrol] MARILIA ([facility]) Amoxicillin 500 MG / Clavulanate 125 MG Oral Tablet amoxicillin 500 mg-potassium clavulanate 125 mg tablet TAKE ONE TABLET BY MOUTH EVERY TWELVE HOURS amoxicillin 500 mg-potassium clavulanate 125 mg tablet TAKE ONE TABLET BY MOUTH EVERY TWELVE HOURS completed amoxicillin 500 MG / clavulanate 125 MG Oral Tablet MARILIA ([facility]) cefdinir 300 MG Oral Capsule cefdinir 300 mg capsule cefdinir 30 0 mg capsule completed cefdinir 300 M G Oral Capsule MARILIA ([facility]) Doxycycline Monohydrate 100 MG Oral Caps ule doxycycline monohydrate 100 mg capsule TAKE ONE CAPSULE BY MOUTH TWICE DAILY FOR SEVEN DAYS doxycycline monohydrate 100 mg capsule TAKE ONE CAPSULE BY MOUTH TWICE DAILY FOR SEVEN DAYS completed doxycycline mo nohydrate 100 MG Oral Capsule [facility] ([facility]) Prednisone 20 MG Oral Tablet prednisone 20 mg tablet TAKE ONE TABLET BY MOUTH ONCE DAILY FOR FIVE DAYS prednisone 20 mg tablet TAKE ONE TABLET BY MOUTH ONCE DAILY FOR FIVE DAYS completed pr ednisone 20 MG Oral Tablet [facility] ([facility]) Estradiol 0.1 MG/ML Vaginal Cream estradiol 0.01% (0.1 mg/gram) vaginal cream estradiol 0.01% (0.1 mg/gram) vaginal cream completed estradiol 0.1 MG/ML Vaginal Cream [facility] ([facility]) Amoxicillin 500 MG / Clavulanate 125 MG Oral Tablet amoxicillin 500 mg-potassium clavulanate 125 mg tablet TAKE ONE TABLET BY MOUTH EVERY TWELVE HOURS amoxicillin 500 mg-potassium clavulanate 125 mg tablet TAKE ONE TABLET BY MOUTH EVERY TWELVE HOURS completed amoxicillin 500 MG / clavulanate 125 MG Oral Tablet [facility] ([facility]) 0.3 ML Enoxaparin sodium 100 MG/ML Prefi lled Syringe enoxaparin 30 mg/0.3 mL subcutaneous syringe INJECT 0.3 MILLILITERS SUBCUTANEOUSLY EVERY 12 HOURS FOR TWO WEEKS enoxaparin 30 mg/0.3 mL subcutaneous syr travis INJECT 0.3 MILLILITERS SUBCUTANEOUSLY EVERY 12 HOURS FOR TWO WEEKS completed 0.3 ML enoxaparin sodium 100 MG/ML Prefilled Syringe [facility] ([facility]) Doxycycline Monohydrate 100 MG Oral Caps ule doxycycline monohydrate 100 mg capsule TAKE ONE CAPSULE BY MOUTH TWICE DAILY FOR SEVEN DAYS doxycycline monohydrate 100 mg capsule TAKE ONE CAPSULE BY MOUTH TWICE DAILY FOR SEVEN DAYS completed doxycycline mo nohydrate 100 MG Oral Capsule [facility] ([facility]) Methylprednisolone 4 MG Oral Tablet methylprednisolone 4 mg tablet 1 tab daily methylprednisolone 4 mg tablet 1 tab daily completed methylprednisolone 4 MG Oral Tablet [facility] ([facility]) glimepiride 2 MG Oral Tablet glimepiride 2 mg tablet TAKE ONE TABLET BY MOUTH @8AM and TAKE ONE TABLET @8PM glimepiride 2 mg tablet TAKE ONE TABLET BY MOUTH @8AM and TAKE ONE TABLET @8PM complete d glimepiride 2 MG Oral Tablet [facility] ([facility]) Ciprofloxacin 250 MG Oral Tablet ciprofl oxacin 250 mg tablet TAKE ONE TABLET BY MOUTH TWICE DAILY FOR 3 DAYS ciprofloxacin 250 mg tablet TAKE ONE TAB LET BY MOUTH TWICE DAILY FOR 3 DAYS completed ciprofloxacin 250 MG Oral Tablet [facility] ([facility]) Acetaminophen 325 MG / Oxycodone Hydroch loride 5 MG Oral Tablet oxycodone- acetaminophen 5 mg-325 mg tablet oxycodone-acetaminophen 5 mg-325 mg tablet completed acetaminop hen 325 MG / oxycodone hydrochloride 5 MG Oral Tablet [facility] ([facility]) glimepiride 1 MG Oral Tablet glimepiride 1 mg tablet glimepiride 1 mg tablet completed glimepiride 1 MG Oral Tablet [facility] ([facility]) tramadol hydrochloride 50 MG Oral Tablet tramadol 50 mg tablet TAKE ONE TABLET BY MOUTH EVERY 6 HOURS NEEDED FOR PAIN MAX DAILY DOSE FOUR TABLETS tramadol 50 mg tablet TAKE ONE TABLET BY MOUTH EVERY 6 HOURS NEEDED FOR PAIN MAX DAILY DOSE FOUR TABLETS completed tramadol hydrochloride 50 MG Oral Tablet [facility] ([facility]) Oxycodone Hydrochloride 5 MG Oral Tablet oxycodone 5 mg tablet TAKE 1 TO 2 TABLETS BY MOUTH EVERY FOUR HOURS NEEDED FOR PAIN MAX DAILY DOSE 12 CAPSULES oxycodone 5 mg tablet TAKE 1 TO 2 TABLETS BY MOUTH EVERY FOUR HOURS NEEDED FOR PAIN MAX DAILY DOSE 12 CAPSULES co mpleted oxycodone hydrochloride 5 MG Oral Tablet [facility] ([facility]) Oxycodone Hydrochloride 5 MG Oral Tablet oxycodone 5 mg tablet TAKE 1 TO 2 TABLETS BY MOUTH EVERY FOUR HOURS NEEDED FOR PAIN MAX DAILY DOSE 12 CAPSULES oxycodone 5 mg tablet TAKE 1 TO 2 TABLETS BY MOUTH EVERY FOUR HOURS NEEDED FOR PAIN MAX DAILY DOSE 12 CAPSULES co mpleted oxycodone hydrochloride 5 MG Oral Tablet [facility] ([facility]) Methylprednisolone 2 MG Oral Tablet [Med rol] Medrol 2 mg tablet 1 tablet every other day Medrol 2 mg tablet 1 tablet every other day completed methylprednisolone 2 MG Oral Tablet [Medrol] [facility] ([facility]) tramadol hydrochloride 50 MG Oral Tablet tramadol 50 mg tablet TAKE ONE TABLET BY MOUTH EVERY 6 HOURS NEEDED FOR PAIN MAX DAILY DOSE FOUR TABLETS tramadol 50 mg tablet TAKE ONE TABLET BY MOUTH EVERY 6 HOURS NEEDED FOR PAIN MAX DAILY DOSE FOUR TABLETS completed tramadol hydrochloride 50 MG Oral Tablet [facility] ([facility]) Doxycycline Monohydrate 100 MG Oral Caps ule doxycycline monohydrate 100 mg capsule TAKE ONE CAPSULE BY MOUTH TWICE DAILY FOR SEVEN DAYS doxycycline monohydrate 100 mg capsule TAKE ONE CAPSULE BY MOUTH TWICE DAILY FOR SEVEN DAYS completed doxycycline mo nohydrate 100 MG Oral Capsule [facility] ([facility]) Methylprednisolone 2 MG Oral Tablet [Med rol] Medrol 2 mg tablet 1 tablet every other day Medrol 2 mg tablet 1 tablet every other day completed methylprednisolone 2 MG Oral Tablet [Medrol] [facility]IL[facility] ([facility]) Methylprednisolone 4 MG Oral Tablet methylprednisolone 4 mg tablet 1 tab daily methylprednisolone 4 mg tablet 1 tab daily completed methylprednisolone 4 MG Oral Tablet [facility] ([facility]) Acetaminophen 325 MG / Oxycodone Hydroch loride 5 MG Oral Tablet oxycodone- acetaminophen 5 mg-325 mg tablet oxycodone-acetaminophen 5 mg-325 mg tablet completed acetaminop hen 325 MG / oxycodone hydrochloride 5 MG Oral Tablet [facility] ([facility]) Methylprednisolone 2 MG Oral Tablet [Med rol] Medrol 2 mg tablet 1 tablet every other day Medrol 2 mg tablet 1 tablet every other day completed methylprednisolone 2 MG Oral Tablet [Medrol] [facility]IL[facility] ([facility]) tramadol hydrochloride 50 MG Oral Tablet tramadol 50 mg tablet TAKE ONE TABLET BY MOUTH EVERY 6 HOURS NEEDED FOR PAIN MAX DAILY DOSE FOUR TABLETS tramadol 50 mg tablet TAKE ONE TABLET BY MOUTH EVERY 6 HOURS NEEDED FOR PAIN MAX DAILY DOSE FOUR TABLETS completed tramadol hydrochloride 50 MG Oral Tablet [facility] ([facility]) Alprazolam 1 MG Oral Tablet alprazolam 1 mg tablet alprazolam 1 mg ta blet completed alprazolam 1 MG Oral Tablet [facility] ([facility]) Amoxicillin 500 MG / Clavulanate 125 MG Oral Tablet amoxicillin 500 mg-potassium clavulanate 125 mg tablet TAKE ONE TABLET BY MOUTH EVERY TWELVE HOURS amoxicillin 500 mg-potassium clavulanate 125 mg tablet TAKE ONE TABLET BY MOUTH EVERY TWELVE HOURS completed amoxicillin 500 MG / clavulanate 125 MG Oral Tablet [facility] ([facility]) Estradiol 0.1 MG/ML Vaginal Cream estradiol 0.01% (0.1 mg/gram) vaginal cream estradiol 0.01% (0.1 mg/gram) vaginal cream completed estradiol 0.1 MG/ML Vaginal Cream [facility] ([facility]) Prednisone 20 MG Oral Tablet prednisone 20 mg tablet TAKE ONE TABLET BY MOUTH ONCE DAILY FOR FIVE DAYS prednisone 20 mg tablet TAKE ONE TABLET BY MOUTH ONCE DAILY FOR FIVE DAYS completed pr ednisone 20 MG Oral Tablet [facility] ([facility]) Acetaminophen 325 MG / Oxycodone Hydroch loride 5 MG Oral Tablet oxycodone- acetaminophen 5 mg-325 mg tablet oxycodone-acetaminophen 5 mg-325 mg tablet completed acetaminop hen 325 MG / oxycodone hydrochloride 5 MG Oral Tablet [facility] ([facility]) 0.3 ML Enoxaparin sodium 100 MG/ML Prefi lled Syringe enoxaparin 30 mg/0.3 mL subcutaneous syringe INJECT 0.3 MILLILITERS SUBCUTANEOUSLY EVERY 12 HOURS FOR TWO WEEKS enoxaparin 30 mg/0.3 mL subcutaneous syr travis INJECT 0.3 MILLILITERS SUBCUTANEOUSLY EVERY 12 HOURS FOR TWO WEEKS completed 0.3 ML enoxaparin sodium 100 MG/ML Prefilled Syringe [facility]IA ([facility]) Amoxicillin 500 MG / Clavulanate 125 MG Oral Tablet amoxicillin 500 mg-potassium clavulanate 125 mg tablet TAKE ONE TABLET BY MOUTH EVERY TWELVE HOURS amoxicillin 500 mg-potassium clavulanate 125 mg tablet TAKE ONE TABLET BY MOUTH EVERY TWELVE HOURS completed amoxicillin 500 MG / clavulanate 125 MG Oral Tablet MAR[facility] ([facility]) Methylprednisolone 2 MG Oral Tablet [Med rol] Medrol 2 mg tablet 1 tablet every other day Medrol 2 mg tablet 1 tablet every other day completed methylprednisolone 2 MG Oral Tablet [Medrol] MARILIA ([facility]) Cyclobenzaprine hydrochloride 5 MG Oral Tablet cyclobenzaprine 5 mg tablet TAKE ONE TABLET BY MOUTH @8AM and TAKE ONE TABLET @12PM and TAKE ONE TABLET @8PM cyclobenzaprine 5 mg tablet TAKE ONE TABLET BY MOUTH @8AM and TAKE ONE TABLET @12PM and TAKE ONE TABLET @8PM complet ed cyclobenzaprine hydrochloride 5 MG Oral Tablet [facility] ([facility]) Acetaminophen 325 MG / Oxycodone Hydroch loride 5 MG Oral Tablet oxycodone- acetaminophen 5 mg-325 mg tablet oxycodone-acetaminophen 5 mg-325 mg tablet completed acetaminop hen 325 MG / oxycodone hydrochloride 5 MG Oral Tablet [facility] ([facility]) Ciprofloxacin 250 MG Oral Tablet ciprofl oxacin 250 mg tablet TAKE ONE TABLET BY MOUTH TWICE DAILY FOR 3 DAYS ciprofloxacin 250 mg tablet TAKE ONE TAB LET BY MOUTH TWICE DAILY FOR 3 DAYS completed ciprofloxacin 250 MG Oral Tablet [facility] ([facility]) Oxycodone Hydrochloride 5 MG Oral Tablet oxycodone 5 mg tablet TAKE 1 TO 2 TABLETS BY MOUTH EVERY FOUR HOURS NEEDED FOR PAIN MAX DAILY DOSE 12 CAPSULES oxycodone 5 mg tablet TAKE 1 TO 2 TABLETS BY MOUTH EVERY FOUR HOURS NEEDED FOR PAIN MAX DAILY DOSE 12 CAPSULES co mpleted oxycodone hydrochloride 5 MG Oral Tablet [facility]IA ([facility]) Ciprofloxacin 250 MG Oral Tablet ciprofl oxacin 250 mg tablet TAKE ONE TABLET BY MOUTH TWICE DAILY FOR 3 DAYS ciprofloxacin 250 mg tablet TAKE ONE TAB LET BY MOUTH TWICE DAILY FOR 3 DAYS completed ciprofloxacin 250 MG Oral Tablet [facility]IA ([facility]) tramadol hydrochloride 50 MG Oral Tablet tramadol 50 mg tablet TAKE ONE TABLET BY MOUTH EVERY 6 HOURS NEEDED FOR PAIN MAX DAILY DOSE FOUR TABLETS tramadol 50 mg tablet TAKE ONE TABLET BY MOUTH EVERY 6 HOURS NEEDED FOR PAIN MAX DAILY DOSE FOUR TABLETS completed tramadol hydrochloride 50 MG Oral Tablet [facility]IA ([facility]) Prednisone 20 MG Oral Tablet prednisone 20 mg tablet TAKE ONE TABLET BY MOUTH ONCE DAILY FOR FIVE DAYS prednisone 20 mg tablet TAKE ONE TABLET BY MOUTH ONCE DAILY FOR FIVE DAYS completed pr ednisone 20 MG Oral Tablet [facility]IA ([facility]) Methylprednisolone 4 MG Oral Tablet methylprednisolone 4 mg tablet 1 tab daily methylprednisolone 4 mg tablet 1 tab daily completed methylprednisolone 4 MG Oral Tablet MARILIA ([facility]) cefdinir 300 MG Oral Capsule cefdinir 300 mg capsule cefdinir 30 0 mg capsule completed cefdinir 300 M G Oral Capsule [facility]IA ([facility]) Estradiol 0.1 MG/ML Vaginal Cream estradiol 0.01% (0.1 mg/gram) vaginal cream estradiol 0.01% (0.1 mg/gram) vaginal cream completed estradiol 0.1 MG/ML Vaginal Cream [facility]IA ([facility]) Methylprednisolone 4 MG Oral Tablet methylprednisolone 4 mg tablet 1 tab daily methylprednisolone 4 mg tablet 1 tab daily completed methylprednisolone 4 MG Oral Tablet MAR[facility] ([facility]) tramadol hydrochloride 50 MG Oral Tablet tramadol 50 mg tablet TAKE ONE TABLET BY MOUTH EVERY 6 HOURS NEEDED FOR PAIN MAX DAILY DOSE FOUR TABLETS tramadol 50 mg tablet TAKE ONE TABLET BY MOUTH EVERY 6 HOURS NEEDED FOR PAIN MAX DAILY DOSE FOUR TABLETS completed tramadol hydrochloride 50 MG Oral Tablet [facility]IA ([facility]) glimepiride 2 MG Oral Tablet glimepiride 2 mg tablet TAKE ONE TABLET BY MOUTH @8AM and TAKE ONE TABLET @8PM glimepiride 2 mg tablet TAKE ONE TABLET BY MOUTH @8AM and TAKE ONE TABLET @8PM complete d glimepiride 2 MG Oral Tablet MARILIA ([facility]) Doxycycline Monohydrate 100 MG Oral Caps ule doxycycline monohydrate 100 mg capsule TAKE ONE CAPSULE BY MOUTH TWICE DAILY FOR SEVEN DAYS doxycycline monohydrate 100 mg capsule TAKE ONE CAPSULE BY MOUTH TWICE DAILY FOR SEVEN DAYS completed doxycycline mo nohydrate 100 MG Oral Capsule [facility] ([facility]) Oxycodone Hydrochloride 5 MG Oral Tablet oxycodone 5 mg tablet TAKE 1 TO 2 TABLETS BY MOUTH EVERY FOUR HOURS NEEDED FOR PAIN MAX DAILY DOSE 12 CAPSULES oxycodone 5 mg tablet TAKE 1 TO 2 TABLETS BY MOUTH EVERY FOUR HOURS NEEDED FOR PAIN MAX DAILY DOSE 12 CAPSULES co mpleted oxycodone hydrochloride 5 MG Oral Tablet MARILIA ([facility]) Oxycodone Hydrochloride 5 MG Oral Tablet oxycodone 5 mg tablet TAKE 1 TO 2 TABLETS BY MOUTH EVERY FOUR HOURS NEEDED FOR PAIN MAX DAILY DOSE 12 CAPSULES oxycodone 5 mg tablet TAKE 1 TO 2 TABLETS BY MOUTH EVERY FOUR HOURS NEEDED FOR PAIN MAX DAILY DOSE 12 CAPSULES co mpleted oxycodone hydrochloride 5 MG Oral Tablet MARILIA ([facility]) Methylprednisolone 2 MG Oral Tablet [Med rol] Medrol 2 mg tablet 1 tablet every other day Medrol 2 mg tablet 1 tablet every other day completed methylprednisolone 2 MG Oral Tablet [Medrol] MARILIA ([facility]) Oxycodone Hydrochloride 5 MG Oral Tablet oxycodone 5 mg tablet TAKE 1 TO 2 TABLETS BY MOUTH EVERY FOUR HOURS NEEDED FOR PAIN MAX DAILY DOSE 12 CAPSULES oxycodone 5 mg tablet TAKE 1 TO 2 TABLETS BY MOUTH EVERY FOUR HOURS NEEDED FOR PAIN MAX DAILY DOSE 12 CAPSULES co mpleted oxycodone hydrochloride 5 MG Oral Tablet MARILIA ([facility]) Methylprednisolone 4 MG Oral Tablet methylprednisolone 4 mg tablet 1 tab daily methylprednisolone 4 mg tablet 1 tab daily completed methylprednisolone 4 MG Oral Tablet MARILIA ([facility]) Doxycycline Monohydrate 100 MG Oral Caps ule doxycycline monohydrate 100 mg capsule TAKE ONE CAPSULE BY MOUTH TWICE DAILY FOR SEVEN DAYS doxycycline monohydrate 100 mg capsule TAKE ONE CAPSULE BY MOUTH TWICE DAILY FOR SEVEN DAYS completed doxycycline mo nohydrate 100 MG Oral Capsule AM[facility]ILIA ([facility]) glimepiride 1 MG Oral Tablet glimepiride 1 mg tablet glimepiride 1 mg tablet completed glimepiride 1 MG Oral Tablet [facility]ILIA ([facility]) Oxycodone Hydrochloride 5 MG Oral Tablet oxycodone 5 mg tablet TAKE 1 TO 2 TABLETS BY MOUTH EVERY FOUR HOURS NEEDED FOR PAIN MAX DAILY DOSE 12 CAPSULES oxycodone 5 mg tablet TAKE 1 TO 2 TABLETS BY MOUTH EVERY FOUR HOURS NEEDED FOR PAIN MAX DAILY DOSE 12 CAPSULES co mpleted oxycodone hydrochloride 5 MG Oral Tablet MARILIA ([facility]) cefdinir 300 MG Oral Capsule cefdinir 300 mg capsule cefdinir 30 0 mg capsule completed cefdinir 300 M G Oral Capsule [facility]ILIA ([facility]) Prednisone 20 MG Oral Tablet prednisone 20 mg tablet TAKE ONE TABLET BY MOUTH ONCE DAILY FOR FIVE DAYS prednisone 20 mg tablet TAKE ONE TABLET BY MOUTH ONCE DAILY FOR FIVE DAYS completed pr ednisone 20 MG Oral Tablet [facility] ([facility]) Estradiol 0.1 MG/ML Vaginal Cream estradiol 0.01% (0.1 mg/gram) vaginal cream estradiol 0.01% (0.1 mg/gram) vaginal cream completed estradiol 0.1 MG/ML Vaginal Cream [facility]IA ([facility]) 0.3 ML Enoxaparin sodium 100 MG/ML Prefi lled Syringe enoxaparin 30 mg/0.3 mL subcutaneous syringe INJECT 0.3 MILLILITERS SUBCUTANEOUSLY EVERY 12 HOURS FOR TWO WEEKS enoxaparin 30 mg/0.3 mL subcutaneous syr travis INJECT 0.3 MILLILITERS SUBCUTANEOUSLY EVERY 12 HOURS FOR TWO WEEKS completed 0.3 ML enoxaparin sodium 100 MG/ML Prefilled Syringe MARILIA ([facility]) 0.3 ML Enoxaparin sodium 100 MG/ML Prefi lled Syringe enoxaparin 30 mg/0.3 mL subcutaneous syringe INJECT 0.3 MILLILITERS SUBCUTANEOUSLY EVERY 12 HOURS FOR TWO WEEKS enoxaparin 30 mg/0.3 mL subcutaneous syr travis INJECT 0.3 MILLILITERS SUBCUTANEOUSLY EVERY 12 HOURS FOR TWO WEEKS completed 0.3 ML enoxaparin sodium 100 MG/ML Prefilled Syringe MARILIA ([facility]) Amoxicillin 500 MG / Clavulanate 125 MG Oral Tablet amoxicillin 500 mg-potassium clavulanate 125 mg tablet TAKE ONE TABLET BY MOUTH EVERY TWELVE HOURS amoxicillin 500 mg-potassium clavulanate 125 mg tablet TAKE ONE TABLET BY MOUTH EVERY TWELVE HOURS completed amoxicillin 500 MG / clavulanate 125 MG Oral Tablet MARILIA ([facility]) Acetaminophen 325 MG / Oxycodone Hydroch loride 5 MG Oral Tablet oxycodone- acetaminophen 5 mg-325 mg tablet oxycodone-acetaminophen 5 mg-325 mg tablet completed acetaminop hen 325 MG / oxycodone hydrochloride 5 MG Oral Tablet MARILIA ([facility]) 0.3 ML Enoxaparin sodium 100 MG/ML Prefi lled Syringe enoxaparin 30 mg/0.3 mL subcutaneous syringe INJECT 0.3 MILLILITERS SUBCUTANEOUSLY EVERY 12 HOURS FOR TWO WEEKS enoxaparin 30 mg/0.3 mL subcutaneous syr travis INJECT 0.3 MILLILITERS SUBCUTANEOUSLY EVERY 12 HOURS FOR TWO WEEKS completed 0.3 ML enoxaparin sodium 100 MG/ML Prefilled Syringe MARILIA ([facility]) Ciprofloxacin 250 MG Oral Tablet ciprofl oxacin 250 mg tablet TAKE ONE TABLET BY MOUTH TWICE DAILY FOR 3 DAYS ciprofloxacin 250 mg tablet TAKE ONE TAB LET BY MOUTH TWICE DAILY FOR 3 DAYS completed ciprofloxacin 250 MG Oral Tablet MARILIA ([facility]) tramadol hydrochloride 50 MG Oral Tablet tramadol 50 mg tablet TAKE ONE TABLET BY MOUTH EVERY 6 HOURS NEEDED FOR PAIN MAX DAILY DOSE FOUR TABLETS tramadol 50 mg tablet TAKE ONE TABLET BY MOUTH EVERY 6 HOURS NEEDED FOR PAIN MAX DAILY DOSE FOUR TABLETS completed tramadol hydrochloride 50 MG Oral Tablet MARILIA ([facility]) tramadol hydrochloride 50 MG Oral Tablet tramadol 50 mg tablet TAKE ONE TABLET BY MOUTH EVERY 6 HOURS NEEDED FOR PAIN MAX DAILY DOSE FOUR TABLETS tramadol 50 mg tablet TAKE ONE TABLET BY MOUTH EVERY 6 HOURS NEEDED FOR PAIN MAX DAILY DOSE FOUR TABLETS completed tramadol hydrochloride 50 MG Oral Tablet MARILIA ([facility]) Methylprednisolone 4 MG Oral Tablet methylprednisolone 4 mg tablet 1 tab daily methylprednisolone 4 mg tablet 1 tab daily completed methylprednisolone 4 MG Oral Tablet MARILIA ([facility]) Methylprednisolone 2 MG Oral Tablet [Med rol] Medrol 2 mg tablet 1 tablet every other day Medrol 2 mg tablet 1 tablet every other day completed methylprednisolone 2 MG Oral Tablet [Medrol] MARILIA ([facility]) Estradiol 0.1 MG/ML Vaginal Cream estradiol 0.01% (0.1 mg/gram) vaginal cream estradiol 0.01% (0.1 mg/gram) vaginal cream completed estradiol 0.1 MG/ML Vaginal Cream MARILIA ([facility]) Ciprofloxacin 250 MG Oral Tablet ciprofl oxacin 250 mg tablet TAKE ONE TABLET BY MOUTH TWICE DAILY FOR 3 DAYS ciprofloxacin 250 mg tablet TAKE ONE TAB LET BY MOUTH TWICE DAILY FOR 3 DAYS completed ciprofloxacin 250 MG Oral Tablet MARILIA ([facility]) Estradiol 0.1 MG/ML Vaginal Cream estradiol 0.01% (0.1 mg/gram) vaginal cream estradiol 0.01% (0.1 mg/gram) vaginal cream completed estradiol 0.1 MG/ML Vaginal Cream [facility]ILIA ([facility]) glimepiride 2 MG Oral Tablet glimepiride 2 mg tablet TAKE ONE TABLET BY MOUTH @8AM and TAKE ONE TABLET @8PM glimepiride 2 mg tablet TAKE ONE TABLET BY MOUTH @8AM and TAKE ONE TABLET @8PM complete d glimepiride 2 MG Oral Tablet [facility]ILIA ([facility]) Oxycodone Hydrochloride 5 MG Oral Tablet oxycodone 5 mg tablet TAKE 1 TO 2 TABLETS BY MOUTH EVERY FOUR HOURS NEEDED FOR PAIN MAX DAILY DOSE 12 CAPSULES oxycodone 5 mg tablet TAKE 1 TO 2 TABLETS BY MOUTH EVERY FOUR HOURS NEEDED FOR PAIN MAX DAILY DOSE 12 CAPSULES co mpleted oxycodone hydrochloride 5 MG Oral Tablet MARILIA ([facility]) Ciprofloxacin 250 MG Oral Tablet ciprofl oxacin 250 mg tablet TAKE ONE TABLET BY MOUTH TWICE DAILY FOR 3 DAYS ciprofloxacin 250 mg tablet TAKE ONE TAB LET BY MOUTH TWICE DAILY FOR 3 DAYS completed ciprofloxacin 250 MG Oral Tablet MARILIA ([facility]) Acetaminophen 325 MG / Oxycodone Hydroch loride 5 MG Oral Tablet oxycodone- acetaminophen 5 mg-325 mg tablet oxycodone-acetaminophen 5 mg-325 mg tablet completed acetaminop hen 325 MG / oxycodone hydrochloride 5 MG Oral Tablet MARILIA ([facility]) Prednisone 20 MG Oral Tablet prednisone 20 mg tablet TAKE ONE TABLET BY MOUTH ONCE DAILY FOR FIVE DAYS prednisone 20 mg tablet TAKE ONE TABLET BY MOUTH ONCE DAILY FOR FIVE DAYS completed pr ednisone 20 MG Oral Tablet [facility]ILIA ([facility]) Ciprofloxacin 250 MG Oral Tablet ciprofl oxacin 250 mg tablet TAKE ONE TABLET BY MOUTH TWICE DAILY FOR 3 DAYS ciprofloxacin 250 mg tablet TAKE ONE TAB LET BY MOUTH TWICE DAILY FOR 3 DAYS completed ciprofloxacin 250 MG Oral Tablet MARILIA ([facility]) Estradiol 0.1 MG/ML Vaginal Cream estradiol 0.01% (0.1 mg/gram) vaginal cream estradiol 0.01% (0.1 mg/gram) vaginal cream completed estradiol 0.1 MG/ML Vaginal Cream MARILIA ([facility]) Amoxicillin 500 MG / Clavulanate 125 MG Oral Tablet amoxicillin 500 mg-potassium clavulanate 125 mg tablet TAKE ONE TABLET BY MOUTH EVERY TWELVE HOURS amoxicillin 500 mg-potassium clavulanate 125 mg tablet TAKE ONE TABLET BY MOUTH EVERY TWELVE HOURS completed amoxicillin 500 MG / clavulanate 125 MG Oral Tablet MARILIA ([facility]) Amoxicillin 500 MG / Clavulanate 125 MG Oral Tablet amoxicillin 500 mg-potassium clavulanate 125 mg tablet TAKE ONE TABLET BY MOUTH EVERY TWELVE HOURS amoxicillin 500 mg-potassium clavulanate 125 mg tablet TAKE ONE TABLET BY MOUTH EVERY TWELVE HOURS completed amoxicillin 500 MG / clavulanate 125 MG Oral Tablet MARILIA ([facility]) Methylprednisolone 2 MG Oral Tablet [Med rol] Medrol 2 mg tablet 1 tablet every other day Medrol 2 mg tablet 1 tablet every other day completed methylprednisolone 2 MG Oral Tablet [Medrol] MARILIA ([facility]) glimepiride 1 MG Oral Tablet glimepiride 1 mg tablet glimepiride 1 mg tablet completed glimepiride 1 MG Oral Tablet MARILIA ([facility]) Acetaminophen 325 MG / Oxycodone Hydroch loride 5 MG Oral Tablet oxycodone- acetaminophen 5 mg-325 mg tablet oxycodone-acetaminophen 5 mg-325 mg tablet completed acetaminop hen 325 MG / oxycodone hydrochloride 5 MG Oral Tablet [facility] ([facility]) Ciprofloxacin 250 MG Oral Tablet ciprofl oxacin 250 mg tablet TAKE ONE TABLET BY MOUTH TWICE DAILY FOR 3 DAYS ciprofloxacin 250 mg tablet TAKE ONE TAB LET BY MOUTH TWICE DAILY FOR 3 DAYS completed ciprofloxacin 250 MG Oral Tablet [facility] ([facility]) Doxycycline Monohydrate 100 MG Oral Caps ule doxycycline monohydrate 100 mg capsule TAKE ONE CAPSULE BY MOUTH TWICE DAILY FOR SEVEN DAYS doxycycline monohydrate 100 mg capsule TAKE ONE CAPSULE BY MOUTH TWICE DAILY FOR SEVEN DAYS completed doxycycline mo nohydrate 100 MG Oral Capsule [facility] ([facility]) Alprazolam 1 MG Oral Tablet alprazolam 1 mg tablet alprazolam 1 mg ta blet completed alprazolam 1 MG Oral Tablet [facility] ([facility]) Oxycodone Hydrochloride 5 MG Oral Tablet oxycodone 5 mg tablet TAKE 1 TO 2 TABLETS BY MOUTH EVERY FOUR HOURS NEEDED FOR PAIN MAX DAILY DOSE 12 CAPSULES oxycodone 5 mg tablet TAKE 1 TO 2 TABLETS BY MOUTH EVERY FOUR HOURS NEEDED FOR PAIN MAX DAILY DOSE 12 CAPSULES co mpleted oxycodone hydrochloride 5 MG Oral Tablet [facility] ([facility]) Ciprofloxacin 250 MG Oral Tablet ciprofl oxacin 250 mg tablet TAKE ONE TABLET BY MOUTH TWICE DAILY FOR 3 DAYS ciprofloxacin 250 mg tablet TAKE ONE TAB LET BY MOUTH TWICE DAILY FOR 3 DAYS completed ciprofloxacin 250 MG Oral Tablet [facility] ([facility]) glimepiride 1 MG Oral Tablet glimepiride 1 mg tablet glimepiride 1 mg tablet completed glimepiride 1 MG Oral Tablet [facility] ([facility]) Methylprednisolone 2 MG Oral Tablet [Med rol] Medrol 2 mg tablet 1 tablet every other day Medrol 2 mg tablet 1 tablet every other day completed methylprednisolone 2 MG Oral Tablet [Medrol] [facility] ([facility]) Methylprednisolone 4 MG Oral Tablet methylprednisolone 4 mg tablet 1 tab daily methylprednisolone 4 mg tablet 1 tab daily completed methylprednisolone 4 MG Oral Tablet [facility] ([facility]) Acetaminophen 325 MG / Oxycodone Hydroch loride 5 MG Oral Tablet oxycodone- acetaminophen 5 mg-325 mg tablet oxycodone-acetaminophen 5 mg-325 mg tablet completed acetaminop hen 325 MG / oxycodone hydrochloride 5 MG Oral Tablet [facility] ([facility]) tramadol hydrochloride 50 MG Oral Tablet tramadol 50 mg tablet TAKE ONE TABLET BY MOUTH EVERY 6 HOURS NEEDED FOR PAIN MAX DAILY DOSE FOUR TABLETS tramadol 50 mg tablet TAKE ONE TABLET BY MOUTH EVERY 6 HOURS NEEDED FOR PAIN MAX DAILY DOSE FOUR TABLETS completed tramadol hydrochloride 50 MG Oral Tablet [facility] ([facility]) Insurance Providers Payer name Policy type / Coverage type Policy ID Covered democrat ID Covered democrat's relationship to leonard Policy Leonard Plan Information [place] [id number]. 1880.0 Self [id number] [place] [id number] Self [facility] Community Plan Commercial [id number] 2..1.266932.3.22 [id number] Self [id number] [facility] [employer] [facility] Medigap Part B [id number] 2..1.129379.3.227.99.991.1880.0 Self VY [id number] [employer] Medigap Part B [id number] 2..1.835636.3.227.99.991.1880.0 Self VY [id number] [employer] Medigap Part B [id number] 2..1.554910.3.227.99.991.1880.0 Self VY [id number] [employer] Medigap Part B [id number] 2..1.518501.3.227.99.991.1880.0 Self VY [id number] [facility] Community Plan Commercial [id number] 2..1.079701.3.22 7.99.991.1880.0 Self [id number] [employer] Medigap Part B [id number] 2.0.1.622202.3.227.99.991.1880.0 Self VY [id number] [employer] [facility] Medigap Part B [id number] 2.160.1.250581.3.227.99.991.1880.0 Self VY [id number] [facility] Community Plan Commercial [id number] 2.0.1.943287.3.22 7.99.991.1880.0 Self [id number] [employer] Medigap Part B [id number] 2.0.1.486405.3.227.99.991.1880.0 Self VY [id number] [employer] [facility] Medigap Part B [id number] 2.0.1.101471.3.227.99.991.1880.0 Self VY [id number] [facility] CAPNIA [id number] 2.0.1.658122.3.22 7.99.991.1880.0 Self [id number] [facility] [employer] [facility] Medigap Part B [id number] 2.0.1.315271.3.227.99.991.1880.0 Self VY [id number] [facility] [employer] Medigap Part B [id number] 2.0.1.497484.3.227.99.991.1880.0 Self VY [id number] [facility] Health [facility] Plan CAPNIA [id number] 2.0.1.554870.3.22 7.99.991.1880.0 Self [id number] [facility] [facility] Medigap Part B [id number] 2.0.1.580212.3.227.99.991.1880.0 Self VY [id number] [facility] [employer] Medigap Part B [id number] 2.0.1.959751.3.227.99.991.1880.0 Self VY [id number] [facility] [employer] Medigap Part B [id number] 2..840.1.744795.3.227.99.991.1880.0 Self VY [id number] [facility] [employer] [facility] Medigap Part B [id number] Self [facility] [employer] [facility] Medigap Part B [id number] Self [id number] [facility] [employer] Medigap Part B [id number] 2.840.1.721474.3.227.99.991.1880.0 Self VY [id number] [facility] Community Plan Commercial [id number] Self [id number] [facility] Community Plan Commercial [id number] 2.840.1.642931.3.22 7.99.991.1880.0 Self [id number] [facility] Community Plan Commercial [id number] 2.840.1.034157.3.22 7.99.991.1880.0 Self [id number] [facility] Community Plan Commercial [id number] Self [facility] Comm Plan Medicaid F [id number] SELF [id number] [facility] Community Plan Commercial [id number] 2..840.1.440147.3.227.99.177.2731.0 Self [id number] [facility] Comm Plan Medicaid F [id number] SELF [id number] [facility] Comm Plan Medicaid F [id number] SELF [id number] Medicaid Dental S [id number] S [id number] UHC I [id number] Self [id number] UHC I [id number] Self [id number] [employer] [employer] [place] Workers Compensation [id number] 2.840.1.825011.3.227.99.991.1880.0 30 [id number] [employer] [employer] [place] Workers Compensation [id number] [facility] Comm Plan Medicaid F [id number] SELF [id number] [facility] COMMUNITY PLAN MCDHMO [id number] SP [id number] [facility] [id number] SP [id number] [facility] COMMUNITY PLAN [id number] SP 1 [id number] UNHC COMMUNITY PLAN MCDHMO [id number] SP [id number] UNHC COMMUNITY PLAN MCDHMO [id number] SP [id number] UNHC COMMUNITY PLAN MCDHMO [id number] SP [id number] [facility] COMMUNITY PLAN [id number] SP [id number] [facility] Health Maintenance Organization (HMO) [id number] Self 1 [id number] [facility] COMMUNITY PLAN [facility] [id number] SP [id number] [facility] COMMUNITY PLAN [id number] SP [id number] SELF PAY [facility] COMMUNITY PLAN [id number] SP 1 [id number] SELF PAY SELF PAY [facility] COMMUNITY PLAN [id number] SP 1 [id number] SELF PAY [facility] COMMUNITY PLAN [id number] SP 1 [id number] SELF PAY [facility] COMMUNITY PLAN [id number] SP 1 [id number] [facility] COMMUNITY PLAN [id number] SP [id number] SELF PAY [facility] COMMUNITY PLAN [id number] SP 1 [id number] SELF PAY [facility] COMMUNITY PLAN [id number] SP [id number] SELF PAY ANSI-Not a Secondary Insurance [id number] ANSI-Not a Secondary Insurance [id number] [id number] ANSI-Medicaid [id number] ANSI-Medicaid [id number] ANSI-Not a Secondary Insurance [id number] ANSI-Not a Secondary Insurance [id number] ANSI-Medicaid [id number] ANSI-Not a Secondary Insurance [id number] ANSI-Medicaid [id number] ANSI-Not a Secondary Insurance [id number] ANSI-Medicaid [id number] Medicaid [place] Medigap Part B [id number] 2.16.840.1.976346.3.227.99.991. 1880.0 Self [id number] ANSI-Medicaid [id number] ANSI-Not a Secondary Insurance [id number] ANSI-Medicaid [id number] ANSI-Not a Secondary Insurance [id number] ANSI-Medicaid [id number] ANSI-Not a Secondary Insurance [id number] ANSI-Not a Secondary Insurance [id number] ANSI-Medicaid [id number] ANSI-Medicaid [id number] ANSI-Not a Secondary Insurance [id number] ANSI-Medicaid [id number] ANSI-Not a Secondary Insurance [id number] Medicaid [place] Medig[place] Part [place] [id number] .1.433581.3.227.99.991. 1880.0 Self [id number] [place] Medig[place] Part [place] [id number] .1.945925.3.227.99.991. 1880.0 Self [id number] [employer] MEDICAID MCD HMO [id number] S [id number] Medicaid [place] Medig[place] Part [place] [id number]. 1880.0 Self [id number] [facility] MEDICAID [facility] HMO [id number] S [id number] [facility] COMMUNITY PLAN [id number] SP [id number] [place] Part [place] [id number] 2.16.840.1.476851.3.227.99.991. 1880.0 Self [id number] Medicaid [place] Medig[place] Part B [id number] 2.16.840.1.743241.3.227.99.991. 1880.0 Self [id number] [facility] HEA [id number] 1 [id number] [facility] [id number] SP [id number] UNHC COMMUNITY PLAN MCDHMO [id number] SP [id number] [facility] Comm Plan - Medicaid Medicaid primitivo: [id number] Self primitivo: [id number] Medicaid [place] Medigap Part B [id number] Self D Managed Care [facility] P [id number] S [id number] [employer] NO FAULT [id number] SP [id number] [employer] NO FAULT [id number] SP [id number] 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 [id number] S [id number] [employer] O [id number] O [id number] [facility] Community Plan-Caid Medicaid [id number] Self [employer] NO FAULT [id number] SP [id number] [employer]ARM INS NO FAULT [id number] SP [id number] [employer] [place] [employer] [id number] [id number] BLUE CROSS SAIN[employer] PLAN [id number] SP [id number] MEDICAID P [id number] S [id number] [employer] P [id number] S [id number] HMO BLUE [id number] SP [id number] UNHC COMMUNITY PLAN MCDHMO [id number] SP [id number] UNHC COMMUNITY PLAN MCDHMO [id number] SP [id number] [facility](MCAID) O [id number] S [id number] ANSI-Medicaid [id number] ANSI-Not a Secondary Insurance [id number] ANSI-Medicaid [id number] ANSI-Not a Secondary Insurance [id number] [facility] Plan - Medicaid Medicaid [id number] Self [id number] ANSI-Not a Secondary Insurance [id number] ANSI-Medicaid [id number] ANSI-Medicaid [id number] ANSI-Not a Secondary Insurance [id number] ANSI-Medicaid [id number] ANSI-Not a Secondary Insurance [id number] [id number] ANSI-Not a Secondary Insurance [id number] ANSI-Medicaid [id number] ANSI-Not a Secondary Insurance [id number] ANSI-Medicaid [id number] ANSI-Not a Secondary Insurance [id number] ANSI-Medicaid [id number] ANSI-Not a Secondary Insurance [id number] ANSI-Medicaid [id number] ANSI-Medicaid [id number] ANSI-Not a Secondary Insurance [id number]-[id number] ANSI-Medicaid [id number] ANSI-Not a Secondary Insurance [id number]-[id number] ANSI-Not a Secondary Insurance [id number] ANSI-Medicaid [id number] ANSI-Not a Secondary Insurance [id number] [id number] ANSI-Medicaid [id number] ANSI-Not a Secondary Insurance [id number]-l883-e5not [id number]-36g9-m874-[id number] ANSI-Medicaid [id number] ANSI-Not a Secondary Insurance [id number]-[id number] ANSI-Medicaid [id number] ANSI-Medicaid [id number] ANSI-Not a Secondary Insurance [id number] yrt9k2t [id number]-[id number] ANSI-Not a Secondary Insurance [id number]-[id number]-[id number] ANSI-Medicaid [id number] ANSI-Not a Secondary Insurance [id number]-[id number]-283c-[id number] ANSI-Medicaid [id number] ANSI-Medicaid [id number] ANSI-Not a Secondary Insurance [id number]-[id number]-14w6-355tn [id number]-4x65-462b-[id number] ANSI-Not a Secondary Insurance [id number] [id number] ANSI-Medicaid [id number] ANSI-Not a Secondary Insurance [id number] [id number] [id number]-[id number] ANSI-Medicaid [id number] ANSI-Not a Secondary Insurance [id number] ANSI-Medicaid [id number] ANSI-Medicaid [id number] ANSI-Not a Secondary Insurance [id number]-[id number]-[id number] ANSI-Medicaid [id number] ANSI-Not a Secondary Insurance [id number] ANSI-Medicaid [id number] ANSI-Not a Secondary Insurance [id number] Medicaid [place] Med[place] Part B [id number]. 1880.0 Self [id number] ANSI-Medicaid [id number] ANSI-Not a Secondary Insurance [id number] [id number] ANSI-Medicaid [id number] ANSI-Not a Secondary Insurance [id number]-[id number] ANSI-Not a Secondary Insurance [id number] [id number] ANSI-Medicaid [id number] ANSI-Medicaid [id number] Problems, Conditions, and Diagnoses Code Display Name Description Problem Type Effective Dates Data Source(s) N95.2 Postmenopausal atrophic vaginitis N95.2 - Postmenopausal atrophic vaginitis Diagnosis 08/11/2020 11:00:00 PM EDT [facility] R30.0 Dysuria R30.0 - Dysuria Diagnosis 07/14/2020 11:00:00 PM EDT [place] [facility] 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, 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 N31.0 - Uninhibited neuropathic bladder, not elsewhere classified Diagnosis 04/07/2020 09:05:00 PM [facility] Z87.440 Personal history of urinary (tract) infe ctions Z87.440 - Personal history of urinary (tract) infections Diagnosis 04/07/2020 09:05:00 PM [facility] R35.0 Frequency of micturition R35.0 - Frequency of micturit ion Diagnosis 01/10/2020 11:00:00 PM [facility] R04.0 [id number] Recurrent epistaxis Problem 11/14/2020 12:00 :00 AM EDT eCW1 ([facility]) D50.9 Iron deficiency anemia Anemia, iron deficiency Problem 07/04/2020 12:00:00 AM EDT eCW1 ([facility]) K59.00 [id number] Constipation, unspecified constipation ty pe Problem 05/26/2020 12:00:00 AM EDT eCW1 ([facility]) F41.9 [id number] Anxiety Problem 05/12/2020 12:00:00 AM ES T eCW1 ([facility]) Surgeries/Procedures Procedure Description Date Indications Data Source(s) ECG ROUTINE ECG W/LEAST 12 LDS W/I&R 11/14/2020 12:00: 00 AM EDT eCW1 ([facility]) ARTHROCENTESIS ASPIR&/INJECTION MAJOR JT/BURSA 021 12:00:00 AM EDT [facility] ([facility]) RADIOLOGIC EXAMINATION KNEE 3 VIEWS 10/23/2020 12:00:0 0 AM EDT [facility] ([facility]) RADIOLOGIC EXAMINATION KNEE 3 VIEWS 10/23/2020 12:00:0 0 AM EDT [facility] ([facility]) OFFICE OUTPATIENT VISIT 25 MINUTES 10/23/2020 12:00:00 AM EDT [facility] ([facility]) OFFICE OUTPATIENT NEW 45 MINUTES 10/15/2020 12:00:00 A M EDT [facility] ([facility], ) Spirometry 10/08/2020 12:00:00 AM EDT M EDENT ([facility], ) OFFICE OUTPATIENT VISIT 25 MINUTES 10/08/2020 12:00:00 AM EDT [facility] ([facility]) US RETROPERITONEAL REAL TIME W/IMAGE LIMITED 12:00:00 AM EDT [facility] ([facility]) US RETROPERITONEAL REAL TIME W/IMAGE LIMITED 12:00:00 AM EDT [facility] ([facility]) ARTHROCENTESIS ASPIR&/INJECTION MAJOR JT/BURSA 021 12:00:00 AM EDT [facility] ([facility] ) Cystourethroscopy, W/Ful[employer]uration Inc Cryosurgery Or Laser Garza rg 07/23/2020 12:00:00 AM EDT [facility] ([facility]) Cystourethroscopy,/W Injects For Chemodenervation Of The Leonel dder 07/23/2020 12:00:00 AM EDT [facility] ([facility]) INSJ NON-NDWELLG BLADDER CATHETER 07/14/2020 12:00:00 AM EDT [facility] ([facility]) INSJ NON-NDWELLG BLADDER CATHETER 04/07/2020 12:00:00 AM EST [facility] ([facility]) INSJ NON-NDWELLG BLADDER CATHETER 04/07/2020 12:00:00 AM EST [facility] ([facility]) ARTHROCENTESIS ASPIR&/INJECTION MAJOR JT/BURSA 021 12:00:00 AM EST [facility] ([facility] ) INSJ NON-NDWELLG BLADDER CATHETER 01/10/2020 12:00:00 AM EST [facility] ([facility]) Results ID Date Data Source [id number] 02/09/2021 05:35:00 PM EST [facility] Name Value Range Interpretation Code Description Data Tashia rce(s) Supporting Document(s) SARS coronavirus 2 RNA [Presence] in Res piratory specimen by PHANI with probe detection NEGATIVE [facility] This lab was ordered by [facility] a nd reported by [facility]. ID Date Data Source GASTROINTESTINAL GI PANEL (GIPANEL) 01/22/2021 12:00:00 AM EST eCW1 ([facility]) Name Value Range Interpretation Code Description Data Tashia rce(s) Supporting Document(s) This Gastrointestinal PCR Panel detects the following bacteria, GASTROINTESTINAL (GI) PANEL eCW1 ([facility]) ID Date Data Source [id number] 12/29/2020 04:17:00 PM EDT [facility] Name Value Range Interpretation Code Description Data Tashia rce(s) Supporting Document(s) SARS-CoV-2 (COVID 19) NEGATIVE - SARS-CoV-2 (COVID19) [facility] This lab was ordered by [facility] a nd reported by [facility]. ID Date Data Source [id number] 12/27/2020 09:35:00 AM EDT [facility] Name Value Range Interpretation Code Description Data Tashia rce(s) Supporting Document(s) SARS-CoV-2 (COVID-19) RNA [Presence] in Respiratory specimen by PHANI with probe detection Not Detected [facility] This lab was ordered by [facility] and reported by [employer] ID Date Data Source [id number] 12/24/2020 12:00:00 AM EDT [facility] Name Value Range Interpretation Code Description Data Tashia rce(s) Supporting Document(s) SARS-CoV2 Rapid Antigen Negative [facility] This lab was ordered by [facility] and reported by [facility]. ID Date Data Source [id number] 11/26/2020 11:30:00 AM EDT [facility] Name Value Range Interpretation Code Description Data Tashia rce(s) Supporting Document(s) SARS-CoV-2 (COVID-19) RNA [Presence] in Respiratory specimen by PHANI with probe detection Not Detected [facility] This lab was ordered by [facility] and reported by [employer] ID Date Data Source Comprehensive Metabolic Profile (CMP) 11/14/2020 12:00:00 AM EDT eCW1 ([facility]) Name Value Range Interpretation Code Description Data Tashia rce(s) Supporting Document(s) 64 70-100 GLUCOSE, FASTING eCW1 ([facility]) 15 7-18 BLOOD UREA NITROGEN eCW1 ([facility]) 0.72 0.55-1.30 CREATININE FOR GFR eCW1 ([facility]) > 60.0 >45 GLOMERULAR FILTRATION RATE eCW 1 ([facility]) 137 136-145 SODIUM LEVEL eCW1 ([facility]) 102 98-107 CHLORIDE LEVEL eCW1 ([facility]) 4.3 3.5-5.1 POTASSIUM SERUM eCW1 ([facility]) 28 21-32 CARBON DIOXIDE LEVEL eCW1 ([facility]) 8.8 8.8-10.2 CALCIUM LEVEL [facility]1 [facility] [facility]) 21 7-37 AST/SGOT eCW1 ([facility]ly [facility]) 30 12-78 ALT/SGPT eCW1 ([facility]ly [facility]) 95 45-117 ALKALINE PHOSPHATASE eCW1 ([facility]) 0.9 0.2-1.0 BILIRUBIN,TOTAL eCW1 ([facility]) 6.8 6.4-8.2 TOTAL PROTEIN eCW1 ([facility]) 3.3 3.2-5.2 ALBUMIN eCW1 ([facility]ly [facility]) 0.9 1.2-2.2 ALBUMIN/GLOBULIN RATIO eCW1 ([facility]) ID Date Data Source FERRITIN 11/14/2020 12:00:00 AM EDT eCW1 ([facility]) Name Value Range Interpretation Code Description Data Tashia rce(s) Supporting Document(s) 8 0-252 FERRITIN eCW1 ([facility]ly [facility]) ID Date Data Source FREE T4 & TSH PANEL 11/14/2020 12:00:00 AM EDT eCW1 ([facility]) Name Value Range Interpretation Code Description Data Tashia rce(s) Supporting Document(s) 1.320 0.358-3.740 THYROID STIMULATING HORM ONE eCW1 ([facility]) 1.10 0.76-1.46 FREE T4 eCW1 ([facility]) ID Date Data Source CBC with Differential 11/14/2020 12:00:00 AM EDT eCW1 ([facility]) Name Value Range Interpretation Code Description Data Tashia rce(s) Supporting Document(s) 8.1 4.0-10.0 WHITE BLOOD COUNT eCW1 ([facility]) 3.63 4.00-5.40 RED BLOOD COUNT eCW1 ([facility]) 9.5 12.0-15.5 HEMOGLOBIN eCW1 ([facility]) 86.2 80.0-96.0 MEAN CORPUSCULAR VOLUME e CW1 ([facility]) 31.3 36.0-47.0 HEMATOCRIT eCW1 ([facility]) 30.4 32.0-36.5 MEAN CORPUSCULAR HGB CONC eCW1 ([facility]) 26.2 27.0-33.0 MEAN CORPUSCULAR HEMOGLOB IN eCW1 ([facility]) 15.8 11.5-14.5 RED CELL DISTRIBUTION WID TH eCW1 ([facility]) 342 150-450 PLATELET COUNT, AUTOMATED eCW1 ([facility]) 51.9 36.0-66.0 NEUTROPHILS % eCW1 ([facility]) 5.0 2.0-8.0 MONO % eCW1 ([facility]) 39.4 24.0-44.0 LYMPH % eCW1 ([facility]) 0.9 0.0-1.0 BASO % eCW1 ([facility]) 2.4 0.0-3.0 EOS % eCW1 ([facility]) 4.2 1.5-8.5 NEUTROPHILS # eCW1 ([facility]) 3.2 1.5-5.0 LYMPH # eCW1 ([facility]) 0.2 0.0-0.5 EOS # eCW1 ([facility]) 0.4 0.0-0.8 MONO # eCW1 ([facility]) 0.1 0.0-0.2 BASO # eCW1 ([facility]) ID Date Data Source NT-PRO BNP 11/14/2020 12:00:00 AM EDT eCW1 ([facility]) Name Value Range Interpretation Code Description Data Tashia rce(s) Supporting Document(s) 57 <125 NT-PRO BNP [facility]CW1 [facility]) ID Date Data Source PT & APTT 11/14/2020 12:00:00 AM EDT eCW1 ([facility]) Name Value Range Interpretation Code Description Data Tashia rce(s) Supporting Document(s) 12.5 12.7-14.5 PROTHROMBIN TIME eCW1 ([facility]) 0.89 INR eCW1 ([facility]) 27.5 25.9-37.0 PARTIAL THROMBOPLASTIN TI ME eCW1 ([facility]) ID Date Data Source MAGNESIUM LEVEL 11/14/2020 12:00:00 AM EDT eCW1 ([facility]) Name Value Range Interpretation Code Description Data Tashia rce(s) Supporting Document(s) 2.0 1.8-2.4 MAGNESIUM LEVEL eCW1 ([facility]) ID Date Data Source UA URINALYSIS 11/14/2020 12:00:00 AM EDT eCW1 ([facility]) Name Value Range Interpretation Code Description Data Tashia rce(s) Supporting Document(s) Laboratory studies (set) UA URINALYS IS eCW1 ([facility]) ID Date Data Source URINE CULTURE 11/14/2020 12:00:00 AM EDT eCW1 ([facility]) Name Value Range Interpretation Code Description Data Tashia rce(s) Supporting Document(s) Laboratory studies (set) URINE CULTU RE eCW1 ([facility]) ID Date Data Source [id number] 10/21/2020 04:25:00 PM EDT MEDENT ([facility], ) Name Value Range Interpretation Code Description Data Tashia rce(s) Supporting Document(s) White Blood Count 7.7 10 4.0-10.0 Normal (applies to non-numeri c results) [facility] ([facility], ) Red Blood Count 4.17 10 4.00-5.40 Normal (applies to non-numeric results) [facility] ([facility], ) Hemoglobin 11.0 g/dL 12.0-15.5 Below low normal [facility] ( [facility]) Hematocrit 35.5 % 36.0-47.0 Below low normal [facility] ( [facility]) Mean Corpuscular Hemoglobin 26.4 pg 27.0-33.0 Below low normal [facility] ([facility]) Mean Corpuscular Volume 85.1 fl 80.0-96.0 Normal ( applies to non-numeric results) [facility] ([facility]) Mean Corpuscular HGB Conc 31.0 g/dL 32.0-36.5 Below low normal [facility] ([facility]) Red Cell Distribution Width 15.9 % 11.5-14.5 Above high normal [facility] ([facility]) Platelet Count, Automated 346 10 150-450 Normal (applies to non-numeric results) [facility] ([facility]) Nucleated Red Blood Cell % 0.0 % 0-0 Normal (applies to n on-numeric results) [facility] ([facility]) 11/11/20 (TueNov 11) 09:16 AM MICHAEL ABERNATHY Continues to have anemia. Will further evaluate. ID Date Data Source [id number] 10/21/2020 04:25:00 PM EDT [facility] ([facility]) Name Value Range Interpretation Code Description Data Tashia rce(s) Supporting Document(s) Iron (Fe) 35 ug/dL 50-170 Below low normal [facility] ( [facility]) Total Iron Binding Capacity 487 ug/dL 250-450 Above high normal [facility] ([facility]) Percent Saturation 7.2 % 13.2-45.0 Below low normal [facility] ([facility]) 11/11/20 (TueNov 11) 09:16 AM MICHAEL ABERNATHY Iron deficiency noted. Continue to take iron supplement as directed. Will further evaluate. ID Date Data Source [id number] 10/21/2020 04:25:00 PM EDT [facility] ([facility]) Name Value Range Interpretation Code Description Data Tashia rce(s) Supporting Document(s) Urea nitrogen [Mass/volume] in Serum or Plasma 14 mg/dL 7 -18 Normal (applies to non-numeric results) [facility]) ID Date Data Source [id number] 10/21/2020 04:25:00 PM EDT [facility] ([facility]) Name Value Range Interpretation Code Description Data Tashia rce(s) Supporting Document(s) Creatinine For GFR 0.72 mg/dL 0.55-1.30 Normal (applies to non -numeric results) [facility] ([facility]) Glomerular Filtration Rate Laboratory test result Normal (applies to non- numeric results) [facility]) <content>Units are mL/min/1.73 m2</content>
<content></content>
<content>Chronic Kidney Disease Staging per NKF:</content>
<content></content>
<content>Stage I & II GFR >=60 Normal to Mildly Decreased</content>
<content>Stage III GFR 30- 59 Moderately Decreased</content>
<content>Stage IV GFR 15-29 Severely Decreased</content>
<content>Stage V GFR <15 Very Little GFR Left</content>
<content>ESRD GFR <15 on BIOLOGICS SPECIALIST</content>
<content></content> ID Date Data Source [id number] 10/20/2020 12:00:00 AM EDT [facility] Name Value Range Interpretation Code Description Data Tashia rce(s) Supporting Document(s) SARS-CoV-[address] [facility] This lab was ordered by [facility]-COVID19 and reported by [employer]. ID Date Data Source [id number] 10/20/2020 12:00:00 AM EDT MARILIA ([facility]) Name Value Range Interpretation Code Description Data Tashia rce(s) Supporting Document(s) ID Date Data Source [id number] 10/20/2020 12:00:00 AM EDT MARILIA ([facility]) Name Value Range Interpretation Code Description Data Tashia rce(s) Supporting Document(s) SARS-CoV-2 (COVID-19) RNA [Presence] in Respiratory specimen by PHANI with probe detection negative negative Sars-cov-2 MARILIA ([facility]) ID Date Data Source [id number] 10/08/2020 09:54:00 AM EDT MEDENT ([facility], ) Name Value Range Interpretation Code Description Data Tashia rce(s) Supporting Document(s) PDFReport Laboratory test result MEDENT ([facility], ) FVC-Pred 3.44 L MEDENT ([facility], ) FVC-%Pred-Pre 69 L MEDENT ([facility], ) FVC-Pre 2.38 L MEDENT ([facility]) Fev1-Pred 2.64 L [facility] ([facility]) FVC-LLN 2.70 L [facility] ([facility]) Fev1-Pre 1.77 L [facility] ([facility]) Fev1-%Pred-Pre 67 L MEDENT ([facility]) Fev1-LLN 2.01 L [facility] ([facility]) Fev6-Pre 2.35 L [facility] ([facility]) Fev6-Pred 3.31 L [facility] ([facility]) Fev6-LLN 2.59 L [facility] ([facility]) Fev6-%Pred-Pre 71 L MEDENT ([facility], ) Mmj5djl-Snwk 77 % MED[facility] ([facility]) Vrn8hjl-Dxo 74 % [facility] ([facility]) Qhg4imk-YEY 67 % [facility] ([facility]) Ndm1tul-%Pred-Pre 96 % [facility] ([facility]) Xtz4scb-%Pred-Pre 102 % [facility] ([facility]) Cet6sbc-Ewo 99 % [facility] ([facility]) Qbo7etp-Ivyv 96 % [facility] ([facility]) FEFMax-Pre 5.14 L/E/sec MEDENT ([facility]) FEFMax-Pred 6.37 L/E/sec MED[facility] ([facility]) FEFMax-%Pred-Pre 80 L/E/sec MED[facility] ([facility]) FEFMax-LLN 4.55 L/E/sec MED[facility] ([facility], ) Dxq6681-%Pred-Pre 56 L/E/sec MED[facility] ([facility]) Kzd6356-Wxqq 2.29 L/E/sec MED[facility] ([facility]) Ofl7841-Dbk 1.30 L/E/sec [facility] ([facility]) ExpTime-Pre 7.83 sec [facility] ([facility]) Mwr9579-LUS 0.97 L/E/sec [facility] ([facility]) Tby5xww6-Udep 80 % [facility] ([facility]) Zjs6tqw8-Emv 75 % [facility] ([facility]) Kzo5oft1-%Pred-Pre 93 % [facility] ([facility]) Zql9pds7-ZTM 71 % [facility] ([facility]) ID Date Data Source [id number] 08/11/2020 04:02:00 PM EDT MEDENT ([facility]) Name Value Range Interpretation Code Description Data Tashia rce(s) Supporting Document(s) Linda sp rRNA [Presence] in Vaginal fluid by DNA probe Lab oratory test result Abnormal (applies to non-numeric results) [facility] ([facility]) Gardnerella By Dna Probe Laboratory test result [facility] ([facility]) Trichomonas vaginalis rRNA [Presence] in Genital speci men by DNA probe Laboratory test result [facility] ([facility]) TESTING PERFORMED BY NUCLEIC ACID HYBRID IZATION ID Date Data Source [id number] 08/11/2020 04:02:00 PM EDT MED[facility] ([facility]) Name Value Range Interpretation Code Description Data Tashia rce(s) Supporting Document(s) Bacteria identified in Vaginal fluid by Aerobe culture Laborator y test result [facility] ([facility]) ID Date Data Source [id number] 08/12/2020 12:21:00 PM EDT [facility] Name Value Range Interpretation Code Description Data Tashia rce(s) Supporting Document(s) LINDA BY DNA PROBE POSITIVE NEGATIVE [facility] GARDNERELLA BY DNA PROBE NEGATIVE NEGATIVE [facility] TRICHOMONAS BY DNA PROBE NEGATIVE NEGATIVE [facility] TESTING PERFORMED BY NUCLEIC ACID HYBRI DIZATION ID Date Data Source [id number] 08/11/2020 03:39:00 PM EDT MED[facility] ([facility]) Name Value Range Interpretation Code Description Data Tashia rce(s) Supporting Document(s) Protein [Presence] in Urine by Test strip 30 mg/dL [facility] ([facility]) Glucose [Presence] in Urine 100 mg/dL [facility] ([facility]) Ua Nitrite Laboratory test result [facility] ([facility]) Ua Leuko Laboratory test result [facility] ([facility]) Color of Urine Laboratory test result [facility] ([facility]) Blood [Presence] in Urine by Visual Laboratory test result [facility] ([facility]) Ketones [Presence] in Urine by Test strip Laboratory test result [facility] ([facility]) Clarity of Urine Laboratory test result [facility] ([facility]) pH of Urine by Test strip 7.0 5.0-7.5 [facility] ([facility]) Ua Specific [place] 1.020 1.003-1.030 MEDE NT ([facility]) Urobilinogen [Mass/volume] in Urine by Test strip 0.2 E.U./dL 0.0-1.0 [facility] ([facility]) Bilirubin.total [Presence] in Urine by Test strip Laboratory test res ult [facility] ([facility]) ID Date Data Source [id number] 08/11/2020 12:00:00 AM EDT MARILIA ([facility]) Name Value Range Interpretation Code Description Data Tashia rce(s) Supporting Document(s) ID Date Data Source [id number] 08/11/2020 12:00:00 AM EDT [facility] Name Value Range Interpretation Code Description Data Tashia rce(s) Supporting Document(s) SARS-CoV-2 NEGATIVE [facility] This lab was ordered by [facility] and reported by [employer]. ID Date Data Source [id number] 08/11/2020 12:00:00 AM EDT MARILIA ([facility]) Name Value Range Interpretation Code Description Data Tashia rce(s) Supporting Document(s) ID Date Data Source [id number] 08/11/2020 12:00:00 AM EDT MARILIA ([facility]) Name Value Range Interpretation Code Description Data Tashia rce(s) Supporting Document(s) ID Date Data Source [id number] 07/23/2020 09:44:00 AM EDT MEDENT ([facility]) Name Value Range Interpretation Code Description Data Tashia rce(s) Supporting Document(s) Glucose [Presence] in Urine Laboratory test result [facility] ([facility]) Ua Nitrite Laboratory test result [facility] ([facility]) Protein [Presence] in Urine by Test strip Laboratory test result [facility] ([facility]) Ua Leuko Laboratory test result [facility] ([facility]) Blood [Presence] in Urine by Visual Laboratory test result [facility] ([facility]) Ketones [Presence] in Urine by Test strip Laboratory test result [facility] ([facility]) Color of Urine Laboratory test result [facility] ([facility]) Ua Specific [place] 1.025 1.003-1.030 MEDE NT ([facility]) Clarity of Urine Laboratory test result [facility] ([facility]) pH of Urine by Test strip 7.0 5.0-7.5 [facility] ([facility]) Bilirubin.total [Presence] in Urine by Test strip Laboratory test res ult [facility] ([facility]) Urobilinogen [Mass/volume] in Urine by Test strip 0.2 E.U./dL 0.0-1.0 [facility] ([facility]) ID Date Data Source [id number] 07/14/2020 03:26:00 PM EDT [facility] ([facility]) Name Value Range Interpretation Code Description Data Tashia rce(s) Supporting Document(s) Bacteria identified in Urine by Culture Laboratory test result [facility] ([facility]) <content> --------</content>
<content>Run: 07/16/20 0832 INTERFACED REPORT</content>
<content> </content>
<content>Name: Trini Jiang Age/Sex: 65/F Location: [facility]</content>
<content>Acct: [id number] Unit: [id number] Status: REG REF Room/Bed:</content>
<content>Re07/14/20 Disch: Junior Dr: Monica Bal MD</content>
<content> </content>
<content></content>
<content>Specimen #: [id number] Ordered : 07/14/2012/25/1809</content>
<content>Collected : 07/14/2012/26/1515 By: [...] REPORT </content>
<content></content> ID Date Data Source [id number] 07/16/2020 08:32:00 AM EDT [facility] Run: 07/16/20 0832 INTERFACED REPORT Name: Trini Jiang Age/Sex: 65/F Location: LAB Acct: [id number] Unit: [id number] Status: REG REF Room/Bed: Re07/14/20 Disch: Att Dr: Monica Bal MD Specimen #: [id number] Ordered : 07/14/2012/25/1809 Collected : 07/14/2012/26/1515 By: [...] rce(s) Supporting Document(s) ID Date Data Source [id number] 07/14/2020 03:15:00 PM EDT [facility] ([facility]) Name Value Range Interpretation Code Description Data Atshia rce(s) Supporting Document(s) Glucose [Presence] in Urine Laboratory test result [facility] ([facility]) Ua Nitrite Laboratory test result [facility]ENT ([facility]) Protein [Presence] in Urine by Test strip 30 mg/dL [facility] ([facility]) Blood [Presence] in Urine by Visual Laboratory test result [facility] ([facility]) Ua Leuko Laboratory test result [facility] ([facility]) Clarity of Urine Laboratory test result [facility] ([facility]) Ketones [Presence] in Urine by Test strip Laboratory test result [facility] ([facility]) Color of Urine Laboratory test result [facility] ([facility]) pH of Urine by Test strip 5.0 5.0-7.5 [facility] ([facility]) Ua Specific [place] Laboratory test result 1.003-1.030 [facility] ([facility]) Bilirubin.total [Presence] in Urine by Test strip Laboratory test res ult [facility] ([facility]) Urobilinogen [Mass/volume] in Urine by Test strip 0.2 E.U./dL 0.0-1.0 [facility] ([facility]) ID Date Data Source [id number] 07/14/2020 03:07:00 PM EDT [facility] ([facility]) Name Value Range Interpretation Code Description Data Tashia rce(s) Supporting Document(s) Glucose [Presence] in Urine Laboratory test result [facility] ([facility]) Protein [Presence] in Urine by Test strip 30 mg/dL [facility] ([facility]) Ua Nitrite Laboratory test result [facility] ([facility]) Ua Leuko Laboratory test result [facility] ([facility]) Blood [Presence] in Urine by Visual Laboratory test result [facility] ([facility]) Color of Urine Laboratory test result [facility] ([facility]) Clarity of Urine Laboratory test result [facility] ([facility]) Ketones [Presence] in Urine by Test strip Laboratory test result [facility] ([facility]) pH of Urine by Test strip 5.0 5.0-7.5 [facility] ([facility]) Ua Specific [place] Laboratory test result 1.003-1.030 [facility] ([facility]) Bilirubin.total [Presence] in Urine by Test strip Laboratory test res ult [facility] ([facility]) Urobilinogen [Mass/volume] in Urine by Test strip 0.2 E.U./dL 0.0-1.0 [facility] ([facility]) ID Date Data Source [id number] 07/04/2020 12:00:00 AM EDT eCW1 ([facility]) Name Value Range Interpretation Code Description Data Tashia rce(s) Supporting Document(s) Hemoglobin A1c/Hemoglobin.total in Blood 6.6 HEMOGLOBIN A1c eCW1 ([facility]) ID Date Data Source LIPID PANEL (CARDIAC RISK) 07/04/2020 12:00:00 AM EDT eCW1 ( [facility]) Name Value Range Interpretation Code Description Data Tashia rce(s) Supporting Document(s) Cholesterol [Moles/volume] in Serum or Plasma 156 <200 CHOLESTEROL LEVEL eCW1 ([facility]) Triglyceride [Mass/volume] in Serum or Plasma by calculation 92 <150 TRIGLYCERIDES LEVEL eCW1 ([facility]) Cholesterol in LDL [Mass/volume] in Serum or Plasma by calculation 65 <100 LDL CHOLESTEROL eCW1 ([facility]) Cholesterol in HDL [Moles/volume] in Serum or Plasma 73 >40 HDL CHOLESTEROL eCW1 ([facility]) 83 NON-HDL-C eCW1 ([facility]) 2.136 <5 CHOLESTEROL RISK RATIO eCW1 ([facility]) ID Date Data Source CBC with Auto Differential 05/26/2020 12:00:00 AM EDT eCW1 ( [facility]) Name Value Range Interpretation Code Description Data Tashia rce(s) Supporting Document(s) 33.8 36.0-47.0 eCW1 ([facility]) 10.8 12.0-15.5 eCW1 ([facility]) 7.7 4.0-10.0 eCW1 ([facility]) 89.9 80.0-96.0 eCW1 ([facility]) 3.76 4.00-5.40 eCW1 ([facility]) 14.1 11.5-14.5 eCW1 ([facility]) 32.0 32.0-36.5 eCW1 ([facility]) 28.7 27.0-33.0 eCW1 ([facility]) 343 150-450 eCW1 ([facility]) 4.7 0.0-3.0 eCW1 ([facility]) 32.1 24.0-44.0 eCW1 ([facility]) 6.1 2.0-8.0 eCW1 ([facility]) 55.9 36.0-66.0 eCW1 ([facility]) 0.0 0-0 eCW1 ([facility]) 4.3 1.5-8.5 eCW1 ([facility]) 0.4 0-3.0 eCW1 ([facility]) 0.8 0.0-1.0 eCW1 ([facility]) 0.1 0.0-0.2 eCW1 ([facility]) 2.5 1.5-5.0 eCW1 (Formerly [facility], [facility]) 0.5 0.0-0.8 eCW1 ([facility]) 0.4 0.0-0.5 eCW1 (Formerly [facility], [facility]) ID Date Data Source IRON (FE) 05/26/2020 12:00:00 AM EDT eCW1 ([facility]) Name Value Range Interpretation Code Description Data Tashia rce(s) Supporting Document(s) 46 50-170 eCW1 (Formerly [facility], [facility]) ID Date Data Source [id number] 05/12/2020 12:00:00 AM EST eCW1 ([facility]) Name Value Range Interpretation Code Description Data Tashia rce(s) Supporting Document(s) Microalbumin/Creatinine [Ratio] in Urine 8.9 0.0-30.0 eCW1 ([facility]) Albumin/Creatinine [Mass Ratio] in Urine 9.8 eCW1 ([facility]) Microalbumin/Creatinine [Mass Ratio] in Urine 109.0 eCW1 ([facility]) ID Date Data Source [id number] 04/29/2020 06:29:00 AM EST [facility] Name Value Range Interpretation Code Description Data Tashia rce(s) Supporting Document(s) SARS-CoV-2 (COVID 19) NEGATIVE - SARS-CoV-2 (COVID19) [facility] This lab was ordered by [facility] a nd reported by [facility]. ID Date Data Source [id number] 04/09/2020 10:42:00 AM EST [place] [facility] Run: 04/09/20 1043 INTERFACED REPORT Name: Trini Jiang Age/Sex: 64/F Location: [facility] Acct: [id number] Unit: [id number] Status: REG REF Room/Bed: Re04/07/20 Disch: Att Dr: Monica Bal MD Specimen #: [id number] Ordered : 04/07/2003/27/1856 Collected : 04/07/2003/27/1329 By: [...] rce(s) Supporting Document(s) ID Date Data Source [id number] 04/07/2020 01:30:00 PM EST MEDENT ([facility]) Name Value Range Interpretation Code Description Data Tashia rce(s) Supporting Document(s) Glucose [Presence] in Urine Laboratory test result [facility] ([facility]) Ua Nitrite Laboratory test result ME DENT ([facility]) Protein [Presence] in Urine by Test strip Laboratory test result MEDENT ([facility]) Ua Leuko Laboratory test result ME DENT ([facility]) Blood [Presence] in Urine by Visual Laboratory test result [facility] ([facility]) Color of Urine Laboratory test result [facility] ([facility]) Ketones [Presence] in Urine by Test strip Laboratory test result [facility] ([facility]) Clarity of Urine Laboratory test result [facility] ([facility]) pH of Urine by Test strip 5.0 5.0-7.5 MED[facility] ([facility]) Ua Specific [place] 1.025 1.003-1.030 MEDE NT ([facility]) Bilirubin.total [Presence] in Urine by Test strip Laboratory test res ult MEDENT ([facility]) Urobilinogen [Mass/volume] in Urine by Test strip 0.2 E.U./dL 0.0-1.0 [facility] ([facility]) ID Date Data Source [id number] 04/07/2020 01:30:00 PM EST MEDREMY ([facility]) Name Value Range Interpretation Code Description Data Tashia rce(s) Supporting Document(s) Bacteria identified in Urine by Culture Laboratory test result MEDENT ([facility]) <content>Run: 04/09/20 1043 INTERFACED REPORT</content>
<content> ntent>Name: Trini Jiang Age/Sex: 64/F Location: [facility]</content>
<content>Acct: [id number] Unit: [id number] Status: REG REF Room/Bed:</content>
<content>Re04/07/20 Disch: Att Dr: Monica Bal MD</content>
<content> </content>
<content></content>
<content>Specimen #: [id number] Ordered : 04/07/2003/27/1856</content>
<content>Collected : 04/07/2003/27/1329 By: [...] REPORT </content>
<content></content> ID Date Data Source [id number] 04/07/2020 01:23:00 PM EST MEDENT ([facility]) Name Value Range Interpretation Code Description Data Tashia rce(s) Supporting Document(s) Glucose [Presence] in Urine Laboratory test result MEDENT ([facility]) Protein [Presence] in Urine by Test strip Laboratory test result MEDENT ([facility]) Ua Leuko Laboratory test result ME DENT ([facility]) Ua Nitrite Laboratory test result ME DENT ([facility]) Color of Urine Laboratory test result MEDENT ([facility]) Blood [Presence] in Urine by Visual Laboratory test result MEDENT ([facility]) Ketones [Presence] in Urine by Test strip Laboratory test result MEDENT ([facility]) Clarity of Urine Laboratory test result MEDENT ([facility]) Ua Specific [place] Laboratory test result 1.003-1.030 MEDENT ([facility]) pH of Urine by Test strip 5.0 5.0-7.5 MEDENT ([facility]) Urobilinogen [Mass/volume] in Urine by Test strip 0.2 E.U./dL 0.0-1.0 MEDENT ([facility]) Bilirubin.total [Presence] in Urine by Test strip Laboratory test res ult MEDENT ([facility]) ID Date Data Source [id number] 03/26/2020 12:00:00 AM EST MARILIA ([facility]) Name Value Range Interpretation Code Description Data Tashia rce(s) Supporting Document(s) ID Date Data Source [id number] 03/26/2020 12:00:00 AM EST MARILIA ([facility]) Name Value Range Interpretation Code Description Data Tashia rce(s) Supporting Document(s) SARS-CoV-2 (COVID-19) RNA [Presence] in Respiratory specimen by PHANI with probe detection negative negative Sars-cov-2 PEOTONE ([facility]) ID Date Data Source [id number] 03/26/2020 12:00:00 AM EST MARILIA ([facility]) Name Value Range Interpretation Code Description Data Tashia rce(s) Supporting Document(s) ID Date Data Source [id number] 03/26/2020 12:00:00 AM EST MARILIA ([facility]) Name Value Range Interpretation Code Description Data Tashia rce(s) Supporting Document(s) SARS-CoV-2 (COVID-19) RNA [Presence] in Respiratory specimen by PHANI with probe detection negative negative Sars-cov-2 MARILIA ([facility]) ID Date Data Source [id number] 03/26/2020 12:00:00 AM EST [facility] Name Value Range Interpretation Code Description Data Tashia rce(s) Supporting Document(s) SARS-CoV-2 NEGATIVE [facility] This lab was ordered by [facility] and reported by [employer]. ID Date Data Source [id number] 03/26/2020 12:00:00 AM EST MARILIA ([facility]) Name Value Range Interpretation Code Description Data Tashia rce(s) Supporting Document(s) ID Date Data Source [id number] 03/26/2020 12:00:00 AM EST MARILIA ([facility]) Name Value Range Interpretation Code Description Data Tashia rce(s) Supporting Document(s) SARS-CoV-2 (COVID-19) RNA [Presence] in Respiratory specimen by PHANI with probe detection negative negative Sars-cov-2 MARILIA ([facility]) ID Date Data Source [id number] 03/26/2020 12:00:00 AM EST MARILIA ([facility]) Name Value Range Interpretation Code Description Data Tashia rce(s) Supporting Document(s) ID Date Data Source [id number] 03/26/2020 12:00:00 AM EST MARILIA ([facility]) Name Value Range Interpretation Code Description Data Tashia rce(s) Supporting Document(s) SARS-CoV-2 (COVID-19) RNA [Presence] in Respiratory specimen by PHANI with probe detection negative negative Sars-cov-2 MARILIA ([facility]) ID Date Data Source [id number] 03/26/2020 12:00:00 AM EST MARILIA ([facility]) Name Value Range Interpretation Code Description Data Tashia rce(s) Supporting Document(s) ID Date Data Source [id number] 03/26/2020 12:00:00 AM EST MARILIA ([facility]) Name Value Range Interpretation Code Description Data Tashia rce(s) Supporting Document(s) SARS-CoV-2 (COVID-19) RNA [Presence] in Respiratory specimen by PHANI with probe detection negative negative Sars-cov-2 MARILIA ([facility]) ID Date Data Source [id number] 03/26/2020 12:00:00 AM EST MARILIA ([facility]) Name Value Range Interpretation Code Description Data Tashia rce(s) Supporting Document(s) ID Date Data Source [id number] 03/26/2020 12:00:00 AM EST MARILIA ([facility]) Name Value Range Interpretation Code Description Data Tashia rce(s) Supporting Document(s) SARS-CoV-2 (COVID-19) RNA [Presence] in Respiratory specimen by PHANI with probe detection negative negative Sars-cov-2 MARILIA ([facility]) ID Date Data Source [id number] 03/26/2020 12:00:00 AM EST MARILIA ([facility]) Name Value Range Interpretation Code Description Data Tashia rce(s) Supporting Document(s) ID Date Data Source [id number] 03/26/2020 12:00:00 AM EST MARILIA ([facility]) Name Value Range Interpretation Code Description Data Tashia rce(s) Supporting Document(s) SARS-CoV-2 (COVID-19) RNA [Presence] in Respiratory specimen by PHANI with probe detection negative negative Sars-cov-2 MARILIA ([facility]) ID Date Data Source [id number] 03/12/2020 10:08:00 AM EST MEDENT ([facility], ) Name Value Range Interpretation Code Description Data Tashia rce(s) Supporting Document(s) PDFReport Laboratory test result MEDENT ([facility], ) FVC-Pred 3.47 L MEDENT ([facility]) FVC-%Pred-Pre 73 L MEDENT ([facility], ) FVC-Pre 2.54 L MEDENT ([facility]) FVC-LLN 2.73 L MEDENT ([facility]) Fev1-%Pred-Pre 72 L MEDENT ([facility]) Fev1-Pre 1.92 L MEDENT ([facility]) Fev1-Pred 2.67 L MEDENT ([facility]) Fev6-Pred 3.34 L MEDENT ([facility]) Fev1-LLN 2.04 L MEDENT ([facility]) Fev6-%Pred-Pre 75 L MEDENT ([facility]) Gqu0jew-Ohvv 77 % MEDENT ([facility]) Fev6-Pre 2.51 L MEDENT ([facility]) Fev6-LLN 2.62 L MEDENT ([facility]) Fbz5krr-Kpv 76 % MEDENT ([facility]) Ifh5dtm-%Pred-Pre 97 % MEDENT ([facility]) Nea1rmk-NRD 68 % MEDENT ([facility]) Arm7yql-%Pred-Pre 102 % MEDENT ([facility]) Tte5rud-Qqzq 96 % MEDENT ([facility]) Vjg5kjf-Lfs 99 % MEDENT ([facility]) FEFMax-Pre 5.72 L/E/sec MEDENT ([facility]) FEFMax-Pred 6.43 L/E/sec MEDENT ([facility]) FEFMax-%Pred-Pre 88 L/E/sec MEDENT ([facility]) Fhw4507-Lyit 2.34 L/E/sec MEDENT ([facility]) FEFMax-LLN 4.61 L/E/sec MEDENT ([facility]) Wof9168-Woj 1.46 L/E/sec MEDENT ([facility]) Sxj6614-DUP 1.02 L/E/sec MEDENT ([facility]) ExpTime-Pre 7.33 sec MEDENT ([facility]) Hpb3948-%Pred-Pre 62 L/E/sec MEDENT ([facility]) Gvs5ulh7-Npq 76 % MEDENT ([facility]) Lys1ueu4-%Pred-Pre 95 % MEDENT ([facility]) Zzq9vjx3-Ilrb 80 % MEDENT ([facility]) Ecw8omi2-WRF 71 % MEDENT ([facility]) ID Date Data Source [id number] 01/10/2020 02:03:00 PM EST MEDENT ([facility]) Name Value Range Interpretation Code Description Data Tashia rce(s) Supporting Document(s) Bacteria identified in Vaginal fluid by Aerobe culture Laborator y test result MEDENT ([facility]) ID Date Data Source [id number] 01/11/2020 11:49:00 AM [facility] Name Value Range Interpretation Code Description Data Tashia rce(s) Supporting Document(s) LINDA BY DNA PROBE NEGATIVE NEGATIVE [place] [facility] GARDNERELLA BY DNA PROBE POSITIVE NEGATIVE [facility] TRICHOMONAS BY DNA PROBE NEGATIVE NEGATIVE [facility] TESTING PERFORMED BY NUCLEIC ACID HYBRI DIZATION ID Date Data Source [id number] 01/10/2020 02:03:00 PM EST MEDENT ([facility]) Name Value Range Interpretation Code Description Data Tashia rce(s) Supporting Document(s) Gardnerella By Dna Probe Laboratory test result Abnormal (applies to non- numeric results) MEDENT ([facility]) Linda sp rRNA [Presence] in Vaginal fluid by DNA probe Lab oratory test result [facility] ([facility]) Trichomonas vaginalis rRNA [Presence] in Genital speci men by DNA probe Laboratory test result MEDENT ([facility]) TESTING PERFORMED BY NUCLEIC ACID HYBRID IZATION ID Date Data Source [id number] 01/12/2020 11:21:00 AM EST [facility] Run: 01/12/20 1121 INTERFACED REPORT Name: Trini Jiang Age/Sex: 64/F Location: [facility] Acct: [id number] Unit: [id number] Status: REG REF Room/Bed: Re01/10/20 Disch: Att Dr: Amira Garg Specimen #: [id number] Ordered : 01/10/2007/24/1930 Collected : 01/10/2007/24/1401 By: [...] rce(s) Supporting Document(s) ID Date Data Source [id number] 01/10/2020 02:02:00 PM EST MEDENT ([facility]) Name Value Range Interpretation Code Description Data Tashia rce(s) Supporting Document(s) Bacteria identified in Urine by Culture Laboratory test result MEDENT ([facility]) <content> --------</content>
<content>Run: 01/12/20 1121 INTERFACED REPORT</content>
<content> </content>
<content>Name: Trini Jiang Age/Sex: 64/F Location: [facility]</content>
<content>Acct: [id number] Unit: [id number] Status: REG REF Room/Bed:</content>
<content>Re01/10/20 Disch: Junior Dr: Amira Garg</content>
<content> </content>
<content></content>
<content>Specimen #: [id number] Ordered : 01/10/2007/24/1930</content>
<content>Collected : 01/10/2007/24/1401 By: [...] REPORT </content>
<content></content> ID Date Data Source [id number] 01/10/2020 02:01:00 PM EST MEDENT ([facility]) Name Value Range Interpretation Code Description Data Tashia rce(s) Supporting Document(s) Glucose [Presence] in Urine Laboratory test result MEDENT ([facility]) Protein [Presence] in Urine by Test strip Laboratory test result MEDENT ([facility]) Ua Nitrite Laboratory test result ME DENT ([facility]) Ua Leuko Laboratory test result ME DENT ([facility]) Blood [Presence] in Urine by Visual Laboratory test result MEDENT ([facility]) Ketones [Presence] in Urine by Test strip 15 mg/dL MED[facility] ([facility]) Color of Urine Laboratory test result MEDENT ([facility]) pH of Urine by Test strip 6.5 5.0-7.5 MED[facility] ([facility]) Ua Specific [place] 1.020 1.003-1.030 MEDE NT ([facility]) Clarity of Urine Laboratory test result MED[facility] ([facility]) Urobilinogen [Mass/volume] in Urine by Test strip 0.2 E.U./dL 0.0-1.0 MEDENT ([facility]) Bilirubin.total [Presence] in Urine by Test strip Laboratory test res ult MEDENT ([facility]) ID Date Data Source [id number] 01/10/2020 01:44:00 PM EST MEDENT ([facility]) Name Value Range Interpretation Code Description Data Tashia rce(s) Supporting Document(s) Glucose [Presence] in Urine Laboratory test result MED[facility] ([facility]) Ua Nitrite Laboratory test result ME DENT ([facility]) Protein [Presence] in Urine by Test strip Laboratory test result MEDENT ([facility]) Ua Leuko Laboratory test result ME DENT ([facility]) Blood [Presence] in Urine by Visual Laboratory test result MEDENT ([facility]) Ketones [Presence] in Urine by Test strip 15 mg/dL MEDENT ([facility]) Clarity of Urine Laboratory test result MEDENT ([facility]) Color of Urine Laboratory test result MEDENT ([facility]) Ua Specific [place] 1.025 1.003-1.030 MEDE NT ([facility]) pH of Urine by Test strip 6.0 5.0-7.5 MEDENT ([facility]) Urobilinogen [Mass/volume] in Urine by Test strip 0.2 E.U./dL 0.0-1.0 MEDENT ([facility]) Bilirubin.total [Presence] in Urine by Test strip Laboratory test res ult MEDENT ([facility]) Procedure Social History Code Duration Value Status Description Data Source(s ) Smoking 01/22/2021 12:00:00 AM EST Never Smoker completed Never S moker eCW1 ([facility]) Smoking 01/22/2021 12:00:00 AM EST Never Smoker completed Never S moker eCW1 ([facility]) Smoking 01/22/2021 12:00:00 AM EST Never Smoker completed Never S moker eCW1 ([facility]) Smoking 01/22/2021 12:00:00 AM EST Never Smoker completed Never S moker eCW1 ([facility]) Smoking 01/22/2021 12:00:00 AM EST Never Smoker completed Never S moker eCW1 ([facility]) Smoking 12/20/2020 12:00:00 AM EDT Never Smoker completed Never S moker eCW1 ([facility]) Smoking 12/20/2020 12:00:00 AM EDT Never Smoker completed Never S moker eCW1 ([facility]) Smoking 12/20/2020 12:00:00 AM EDT Never Smoker completed Never S moker eCW1 ([facility]) Smoking 12/20/2020 12:00:00 AM EDT Never Smoker completed Never S moker eCW1 ([facility]) Smoking 12/20/2020 12:00:00 AM EDT Never Smoker completed Never S moker eCW1 ([facility]) Smoking 12/20/2020 12:00:00 AM EDT Never Smoker completed Never S moker eCW1 ([facility]) Smoking 12/20/2020 12:00:00 AM EDT Never Smoker completed Never S moker eCW1 ([facility]) Smoking 11/14/2020 12:00:00 AM EDT Never Smoker completed Never S moker eCW1 ([facility]) Smoking 11/14/2020 12:00:00 AM EDT Never Smoker completed Never S moker eCW1 ([facility]) Smoking 11/14/2020 12:00:00 AM EDT Never Smoker completed Never S moker eCW1 ([facility]) Smoking 11/14/2020 12:00:00 AM EDT Never Smoker completed Never S moker eCW1 ([facility]) Smoking 11/14/2020 12:00:00 AM EDT Never Smoker completed Never S moker eCW1 ([facility]) Smoking 11/14/2020 12:00:00 AM EDT Never Smoker completed Never S moker eCW1 ([facility]) Smoking 11/14/2020 12:00:00 AM EDT Never Smoker completed Never S moker eCW1 ([facility]) Smoking 11/14/2020 12:00:00 AM EDT Never Smoker completed Never S moker eCW1 ([facility]) Smoking 11/14/2020 12:00:00 AM EDT Never Smoker completed Never S moker eCW1 ([facility]) Smoking 11/14/2020 12:00:00 AM EDT Never Smoker completed Never S moker eCW1 ([facility]) Smoking 11/14/2020 12:00:00 AM EDT Never Smoker completed Never S moker eCW1 ([facility]) Smoking 11/14/2020 12:00:00 AM EDT Never Smoker completed Never S moker eCW1 ([facility]) Smoking 10/21/2020 12:00:00 AM EDT Never Smoker completed Never S moker eCW1 ([facility]) Smoking 10/21/2020 12:00:00 AM EDT Never Smoker completed Never S moker eCW1 ([facility]) Smoking 10/21/2020 12:00:00 AM EDT Never Smoker completed Never S moker eCW1 ([facility]) Smoking 10/21/2020 12:00:00 AM EDT Never Smoker completed Never S moker eCW1 ([facility]) Smoking 10/21/2020 12:00:00 AM EDT Never Smoker completed Never S moker eCW1 ([facility]) Smoking 10/08/2020 12:00:00 AM EDT Patient has never smoked co mpleted Patient has never smoked MEDENT ([facility], ) Smoking 09/22/2020 12:00:00 AM EDT Never Smoker completed Never S moker eCW1 ([facility]) Smoking 09/22/2020 12:00:00 AM EDT Never Smoker completed Never S moker eCW1 ([facility]) Smoking 08/11/2020 12:00:00 AM EDT Never Smoked Cigarettes com pleted Never Smoked Cigarettes [facility] ([facility]) Smoking 07/04/2020 12:00:00 AM EDT Never Smoker completed Never S moker eCW1 ([facility]) Smoking 07/04/2020 12:00:00 AM EDT Never Smoker completed Never S moker eCW1 ([facility]) Smoking 07/04/2020 12:00:00 AM EDT Never Smoker completed Never S moker eCW1 ([facility]) Smoking 07/04/2020 12:00:00 AM EDT Never Smoker completed Never S moker eCW1 ([facility]) Smoking 07/04/2020 12:00:00 AM EDT Never Smoker completed Never S moker eCW1 ([facility]) Smoking 07/04/2020 12:00:00 AM EDT Never Smoker completed Never S moker eCW1 ([facility]) Smoking 07/04/2020 12:00:00 AM EDT Never Smoker completed Never S moker eCW1 ([facility]) Smoking 07/04/2020 12:00:00 AM EDT Never Smoker completed Never S moker eCW1 ([facility]) Smoking 07/04/2020 12:00:00 AM EDT Never Smoker completed Never S moker eCW1 ([facility]) Smoking 07/04/2020 12:00:00 AM EDT Never Smoker completed Never S moker eCW1 ([facility]) Smoking 07/04/2020 12:00:00 AM EDT Never Smoker completed Never S moker eCW1 ([facility]) Smoking 05/26/2020 12:00:00 AM EDT Never Smoker completed Never S moker eCW1 ([facility]) Smoking 05/26/2020 12:00:00 AM EDT Never Smoker completed Never S moker eCW1 ([facility]) Smoking 05/26/2020 12:00:00 AM EDT Never Smoker completed Never S moker eCW1 ([facility]) Smoking 05/26/2020 12:00:00 AM EDT Never Smoker completed Never S moker eCW1 ([facility]) Smoking 05/26/2020 12:00:00 AM EDT Never Smoker completed Never S moker eCW1 ([facility]) Smoking 05/26/2020 12:00:00 AM EDT Never Smoker completed Never S moker eCW1 ([facility]) Smoking 05/26/2020 12:00:00 AM EDT Never Smoker completed Never S moker eCW1 ([facility]) Smoking 05/26/2020 12:00:00 AM EDT Never Smoker completed Never S moker eCW1 ([facility]) Smoking 05/26/2020 12:00:00 AM EDT Never Smoker completed Never S moker eCW1 ([facility]) Smoking 05/26/2020 12:00:00 AM EDT Never Smoker completed Never S moker eCW1 ([facility]) Smoking 05/26/2020 12:00:00 AM EDT Never Smoker completed Never S moker eCW1 ([facility]) Smoking 05/12/2020 12:00:00 AM EST Never Smoker completed Never S moker eCW1 ([facility]) Smoking 05/12/2020 12:00:00 AM EST Never Smoker completed Never S moker eCW1 ([facility]) Smoking 05/12/2020 12:00:00 AM EST Never Smoker completed Never S moker eCW1 ([facility]) Vital Signs ID Date Data Source UNK Name Value Range Interpretation Code Description Data Source(s) Respiratory rate 18 /min 18 /min eCW1 ([facility]) Heart rate 101 /min 101 /min eCW1 ([facility]) Body mass index (BMI) [Ratio] 34.34 kg/m2 34.34 kg/m2 eCW1 ([facility]) Body height 66 [in_i] 66 [in_i] eCW1 ([facility]) Body weight 96.53 kg 96.53 kg W1 ([facility]) Body weight 212.8 [lb_av] 212.8 [lb_av] eCW1 ([facility]) Diastolic blood pressure 78 mm[Hg] 78 mm[Hg] eCW1 ([facility]) Systolic blood pressure 118 mm[Hg] 118 mm[Hg] e CW1 ([facility]) Body temperature 97.8 [degF] 97.8 [degF] eCW1 ( [facility]) Body temperature 96.9 [degF] 96.9 [degF] eCW1 ( [facility]) Respiratory rate 18 /min 18 /min eCW1 ([facility]) Heart rate 88 /min 88 /min eCW1 ([facility]) Body mass index (BMI) [Ratio] 35.80 kg/m2 35.80 kg/m2 eCW1 ([facility]) Body height 66 [in_i] 66 [in_i] eCW1 ([facility]) Body weight 100.61 kg 100.61 kg eCW1 ([facility]) Body weight 221.8 [lb_av] 221.8 [lb_av] eCW1 ([facility]) Diastolic blood pressure 78 mm[Hg] 78 mm[Hg] eCW1 ([facility]) Systolic blood pressure 122 mm[Hg] 122 mm[Hg] e CW1 ([facility]) Body temperature 96.9 [degF] 96.9 [degF] eCW1 ( [facility]) Respiratory rate 18 /min 18 /min eCW1 ([facility]) Heart rate 88 /min 88 /min eCW1 ([facility]) Body mass index (BMI) [Ratio] 35.80 kg/m2 35.80 kg/m2 eCW1 ([facility]) Body height 66 [in_i] 66 [in_i] eCW1 ([facility]) Body weight 100.61 kg 100.61 kg eCW1 ([facility]) Body weight 221.8 [lb_av] 221.8 [lb_av] eCW1 ([facility]) Diastolic blood pressure 78 mm[Hg] 78 mm[Hg] eCW1 ([facility]) Systolic blood pressure 122 mm[Hg] 122 mm[Hg] e CW1 ([facility]) Body temperature 97.4 [degF] 97.4 [degF] eCW1 ( [facility]) Respiratory rate 18 /min 18 /min eCW1 ([facility]) Heart rate 105 /min 105 /min eCW1 ([facility]) Body mass index (BMI) [Ratio] 36.44 kg/m2 36.44 kg/m2 eCW1 ([facility]) Body height 66 [in_i] 66 [in_i] eCW1 ([facility]) Body weight 102.42 kg 102.42 kg eCW1 ([facility]) Body weight 225.8 [lb_av] 225.8 [lb_av] eCW1 ([facility]) Diastolic blood pressure 62 mm[Hg] 62 mm[Hg] eCW1 ([facility]) Systolic blood pressure 128 mm[Hg] 128 mm[Hg] e CW1 ([facility]) Body surface area Derived from formula 2.11 m2 2.11 m2 MEDENT ([facility]) Body weight 103.421 kg 103.421 kg MEDENT ([facility]) [place] body weight 130 [lb_av] 130 [lb_av] MEDEN T ([facility]) Body mass index (BMI) [Ratio] 36.8 kg/m2 36.8 k g/m2 [facility] ([facility]) Body weight 228.00 [lb_av] 228.00 [lb_av] MEDEN T ([facility]) Body height 66 [in_i] 66 [in_i] MEDENT ([facility], ) 5'6" Diastolic blood pressure 64 mm[Hg] 64 mm[Hg] MEDENT ([facility]) Systolic blood pressure 112 mm[Hg] 112 mm[Hg] M EDENT ([facility]) Body height 66 [in_i] 66 [in_i] MARILIA ([facility]) Diastolic blood pressure 74 mm[Hg] 74 mm[Hg] MARILIA ([facility]) Body weight 224 [lb_av] 224 [lb_av] MARILIA ([facility]) Systolic blood pressure 128 mm[Hg] 128 mm[Hg] A THENA ([facility]) Body mass index (BMI) [Ratio] 36.2 kg/m2 36.2 k g/m2 MARILIA ([facility]) Body weight 224 [lb_av] 224 [lb_av] MARILIA ([facility]) Systolic blood pressure 128 mm[Hg] 128 mm[Hg] A THENA ([facility]) Body mass index (BMI) [Ratio] 36.2 kg/m2 36.2 k g/m2 MARILIA ([facility]) Body height 66 [in_i] 66 [in_i] MARILIA ([facility]) Diastolic blood pressure 74 mm[Hg] 74 mm[Hg] MARILIA ([facility]) Body weight 224 [lb_av] 224 [lb_av] MARILIA ([facility]) Systolic blood pressure 128 mm[Hg] 128 mm[Hg] A THENA ([facility]) Body mass index (BMI) [Ratio] 36.2 kg/m2 36.2 k g/m2 MARILIA ([facility]) Body height 66 [in_i] 66 [in_i] MARILIA ([facility]) Diastolic blood pressure 74 mm[Hg] 74 mm[Hg] MARILIA ([facility]) Body surface area Derived from formula 2.10 m2 2.10 m2 [facility]) Body weight 101.606 kg 101.606 kg [facility] ([facility]) [place] body weight 130 [lb_av] 130 [lb_av] MEDEN T ([facility]) Body mass index (BMI) [Ratio] 36.2 kg/m2 36.2 k g/m2 [facility] ([facility]) Body weight 224.00 [lb_av] 224.00 [[facility]_av] [facility] Body height 66 [in_i] 66 [in_i] [facility] ([facility]) 5'6" Oxygen saturation in Arterial blood by Pulse oximetry 96 % 96 % [facility] ([facility]) Heart rate 95 /min 95 /min [facility] ([facility]) Diastolic blood pressure 84 mm[Hg] 84 mm[Hg] [facility] ([facility]) Systolic blood pressure 132 mm[Hg] 132 mm[Hg] M EDENT ([facility]) Diastolic blood pressure 72 mm[Hg] 72 mm[Hg] eCW1 ([facility]) Systolic blood pressure 116 mm[Hg] 116 mm[Hg] e CW1 ([facility]) Body temperature 97.7 [degF] 97.7 [degF] eCW1 ( [facility]) Respiratory rate 18 /min 18 /min eCW1 ([facility]) Heart rate 91 /min 91 /min eCW1 ([facility]) Body mass index (BMI) [Ratio] 36.96 kg/m2 36.96 kg/m2 W1 ([facility]) Body height 66 [in_i] 66 [in_i] eCW1 ([facility]) Body weight 229 [lb_av] 229 [lb_av] eCW1 ([facility]) Systolic blood pressure 115 mm[Hg] 115 mm[Hg] A THENA ([facility]) Diastolic blood pressure 77 mm[Hg] 77 mm[Hg] MARILIA ([facility]) Systolic blood pressure 115 mm[Hg] 115 mm[Hg] A THENA ([facility]) Diastolic blood pressure 77 mm[Hg] 77 mm[Hg] MARILIA ([facility]) Systolic blood pressure 115 mm[Hg] 115 mm[Hg] A THENA ([facility]) Diastolic blood pressure 77 mm[Hg] 77 mm[Hg] MARILIA ([facility]) Systolic blood pressure 115 mm[Hg] 115 mm[Hg] A THENA ([facility]) Diastolic blood pressure 77 mm[Hg] 77 mm[Hg] MARILIA ([facility]) Systolic blood pressure 115 mm[Hg] 115 mm[Hg] A THENA ([facility]) Diastolic blood pressure 77 mm[Hg] 77 mm[Hg] MARILIA ([facility]) Body mass index (BMI) [Ratio] 35.2 kg/m2 35.2 k g/m2 MEDENT ([facility]) Body weight 218.00 [lb_av] 218.00 [lb_av] MEDEN T ([facility]) Body height 66 [in_i] 66 [in_i] MEDENT ([facility]) 5'6" Diastolic blood pressure 70 mm[Hg] 70 mm[Hg] eCW1 ([facility]) Systolic blood pressure 122 mm[Hg] 122 mm[Hg] e CW1 ([facility]) Body temperature 97.1 [degF] 97.1 [degF] eCW1 ( [facility]) Respiratory rate 20 /min 20 /min eCW1 ([facility]) Heart rate 94 /min 94 /min eCW1 ([facility]) Body mass index (BMI) [Ratio] 39.02 kg/m2 39.02 kg/m2 eCW1 ([facility]) Body height 66 [in_i] 66 [in_i] eCW1 ([facility]) Body weight 241.8 [lb_av] 241.8 [lb_av] eCW1 ([facility]) Diastolic blood pressure 68 mm[Hg] 68 mm[Hg] eCW1 ([facility]) Systolic blood pressure 110 mm[Hg] 110 mm[Hg] e CW1 ([facility]) Body temperature 98.3 [degF] 98.3 [degF] eCW1 ( [facility]) Respiratory rate 18 /min 18 /min eCW1 ([facility]) Heart rate 96 /min 96 /min eCW1 ([facility]) Body mass index (BMI) [Ratio] 36.86 kg/m2 36.86 kg/m2 eCW1 ([facility]) Body height 66 [in_i] 66 [in_i] eCW1 ([facility]) Body weight 228.4 [lb_av] 228.4 [lb_av] eCW1 ([facility]) Diastolic blood pressure 78 mm[Hg] 78 mm[Hg] eCW1 ([facility]) Systolic blood pressure 102 mm[Hg] 102 mm[Hg] e CW1 ([facility]) Body temperature 97.8 [degF] 97.8 [degF] eCW1 ( [facility]) Respiratory rate 18 /min 18 /min eCW1 ([facility]) Heart rate 95 /min 95 /min eCW1 ([facility]) Body mass index (BMI) [Ratio] 36.96 kg/m2 36.96 kg/m2 eCW1 ([facility]) Body height 66 [in_i] 66 [in_i] eCW1 ([facility]) Body weight 229 [lb_av] 229 [lb_av] eCW1 ([facility]) Systolic blood pressure 134 mm[Hg] 134 mm[Hg] A THENA ([facility]) Diastolic blood pressure 85 mm[Hg] 85 mm[Hg] MARILIA ([facility]) Systolic blood pressure 134 mm[Hg] 134 mm[Hg] A THENA ([facility]) Diastolic blood pressure 85 mm[Hg] 85 mm[Hg] MARILIA ([facility]) Systolic blood pressure 134 mm[Hg] 134 mm[Hg] A THENA ([facility]) Diastolic blood pressure 85 mm[Hg] 85 mm[Hg] MARILIA ([facility]) Systolic blood pressure 134 mm[Hg] 134 mm[Hg] A THENA ([facility]) Diastolic blood pressure 85 mm[Hg] 85 mm[Hg] MARILIA ([facility]) Systolic blood pressure 134 mm[Hg] 134 mm[Hg] A THENA ([facility]) Diastolic blood pressure 85 mm[Hg] 85 mm[Hg] MARILIA ([facility]) Systolic blood pressure 134 mm[Hg] 134 mm[Hg] A THENA ([facility]) Diastolic blood pressure 85 mm[Hg] 85 mm[Hg] MARILIA ([facility]) Body surface area Derived from formula 2.12 m2 2.12 m2 [facility] ([facility], ) Body weight 103.874 kg 103.874 kg [facility], ) [place] body weight 130 [lb_av] 130 [lb_av] MEDEN T ([facility], ) Body mass index (BMI) [Ratio] 37.0 kg/m2 37.0 k g/m2 [facility] ([facility], ) Body weight 229.00 [lb_av] 229.00 [lb_av] MEDEN T ([facility], ) Body height 66 [in_i] 66 [in_i] [facility] ([facility], ) 5'6" Oxygen saturation in Arterial blood by Pulse oximetry 98 % 98 % [facility] ([facility], ) Room Air Heart rate 88 /min 88 /min [facility] ([facility]) Diastolic blood pressure 76 mm[Hg] 76 mm[Hg] [facility] ([facility]) Systolic blood pressure 126 mm[Hg] 126 mm[Hg] [facility] Body surface area Derived from formula 2.12 m2 2.12 m2 [facility] ([facility]) Body weight 103.874 kg 103.874 kg [facility] ([facility]) [place] body weight 130 [lb_av] 130 [lb_av] MEDEN T ([facility]) Body mass index (BMI) [Ratio] 37.0 kg/m2 37.0 k g/m2 [facility] ([facility]) Body weight 229.00 [lb_av] 229.00 [lb_av] [facility] Body height 66 [in_i] 66 [in_i] [facility] ([facility]) 5'6" Oxygen saturation in Arterial blood by Pulse oximetry 98 % 98 % [facility] ([facility]) Room Air [place] body weight 130 [lb_av] 130 [lb_av] [facility] Body height 66 [in_i] 66 [in_i] [facility] ([facility]) 5'6" Patient Treatment Plan of Care Planned Activity Planned Date Details Description Data Source (s) Ondansetron 4 MG Disintegrating Oral Tablet 02/03/2021 12:00:00 AM EST eCW1 ([facility]) Ondansetron 4 MG Disintegrating Oral Tablet 02/03/2021 12:00:00 AM EST eCW1 ([facility]) celecoxib 200 MG Oral Capsule [Celebrex] 01/16/2021 12:00:00 AM EST eCW1 ([facility]) celecoxib 200 MG Oral Capsule [Celebrex] 01/16/2021 12:00:00 AM EST eCW1 ([facility]) celecoxib 200 MG Oral Capsule [Celebrex] 01/16/2021 12:00:00 AM EST eCW1 ([facility]) NITROFURANTOIN, MACROCRYSTALS 25 MG / Ni trofurantoin, Monohydrate 75 MG Oral Capsule [Macrobid] 11/17/2020 12:00:00 AM EDT eC W1 ([facility]) NITROFURANTOIN, MACROCRYSTALS 25 MG / Ni trofurantoin, Monohydrate 75 MG Oral Capsule [Macrobid] 11/17/2020 12:00:00 AM EDT eC W1 ([facility]) NITROFURANTOIN, MACROCRYSTALS 25 MG / Ni trofurantoin, Monohydrate 75 MG Oral Capsule [Macrobid] 11/17/2020 12:00:00 AM EDT eC W1 ([facility]) NITROFURANTOIN, MACROCRYSTALS 25 MG / Ni trofurantoin, Monohydrate 75 MG Oral Capsule [Macrobid] 11/17/2020 12:00:00 AM EDT eC W1 ([facility]) NITROFURANTOIN, MACROCRYSTALS 25 MG / Ni trofurantoin, Monohydrate 75 MG Oral Capsule [Macrobid] 11/17/2020 12:00:00 AM EDT eC W1 ([facility]) NITROFURANTOIN, MACROCRYSTALS 25 MG / Ni trofurantoin, Monohydrate 75 MG Oral Capsule [Macrobid] 11/17/2020 12:00:00 AM EDT eC W1 ([facility]) NITROFURANTOIN, MACROCRYSTALS 25 MG / Ni trofurantoin, Monohydrate 75 MG Oral Capsule [Macrobid] 11/17/2020 12:00:00 AM EDT eC W1 ([facility]) NITROFURANTOIN, MACROCRYSTALS 25 MG / Ni trofurantoin, Monohydrate 75 MG Oral Capsule [Macrobid] 11/17/2020 12:00:00 AM EDT eC W1 ([facility]) NITROFURANTOIN, MACROCRYSTALS 25 MG / Ni trofurantoin, Monohydrate 75 MG Oral Capsule [Macrobid] 11/17/2020 12:00:00 AM EDT eC W1 ([facility]) NITROFURANTOIN, MACROCRYSTALS 25 MG / Ni trofurantoin, Monohydrate 75 MG Oral Capsule [Macrobid] 11/17/2020 12:00:00 AM EDT eC W1 ([facility]) NITROFURANTOIN, MACROCRYSTALS 25 MG / Ni trofurantoin, Monohydrate 75 MG Oral Capsule [Macrobid] 11/17/2020 12:00:00 AM EDT eC W1 ([facility]) NITROFURANTOIN, MACROCRYSTALS 25 MG / Ni trofurantoin, Monohydrate 75 MG Oral Capsule [Macrobid] 11/17/2020 12:00:00 AM EDT eC W1 ([facility]) NITROFURANTOIN, MACROCRYSTALS 25 MG / Ni trofurantoin, Monohydrate 75 MG Oral Capsule [Macrobid] 11/17/2020 12:00:00 AM EDT eC W1 ([facility]) NITROFURANTOIN, MACROCRYSTALS 25 MG / Ni trofurantoin, Monohydrate 75 MG Oral Capsule [Macrobid] 11/17/2020 12:00:00 AM EDT eC W1 ([facility]) NITROFURANTOIN, MACROCRYSTALS 25 MG / Ni trofurantoin, Monohydrate 75 MG Oral Capsule [Macrobid] 11/17/2020 12:00:00 AM EDT eC W1 ([facility]) NITROFURANTOIN, MACROCRYSTALS 25 MG / Ni trofurantoin, Monohydrate 75 MG Oral Capsule [Macrobid] 11/17/2020 12:00:00 AM EDT eC W1 ([facility]) NITROFURANTOIN, MACROCRYSTALS 25 MG / Ni trofurantoin, Monohydrate 75 MG Oral Capsule [Macrobid] 11/17/2020 12:00:00 AM EDT eC W1 ([facility]) NITROFURANTOIN, MACROCRYSTALS 25 MG / Ni trofurantoin, Monohydrate 75 MG Oral Capsule [Macrobid] 11/17/2020 12:00:00 AM EDT eC W1 ([facility]) Mupirocin 0.02 MG/MG Topical Ointment 11/14/2020 12:00:00 AM EDT eCW1 ([facility]) ferric carboxymaltose 50 MG/ML Injectable Solution [In jectafer] 11/14/2020 12:00:00 AM EDT eCW1 ([facility]) Mupirocin 0.02 MG/MG Topical Ointment 11/14/2020 12:00:00 AM EDT eCW1 ([facility]) ferric carboxymaltose 50 MG/ML Injectable Solution [In jectafer] 11/14/2020 12:00:00 AM EDT eCW1 ([facility]) ferric carboxymaltose 50 MG/ML Injectable Solution [In jectafer] 11/14/2020 12:00:00 AM EDT eCW1 ([facility]) Mupirocin 0.02 MG/MG Topical Ointment 11/14/2020 12:00:00 AM EDT eCW1 ([facility]) Mupirocin 0.02 MG/MG Topical Ointment 11/14/2020 12:00:00 AM EDT eCW1 ([facility]) Mupirocin 0.02 MG/MG Topical Ointment 11/14/2020 12:00:00 AM EDT eCW1 ([facility]) ferric carboxymaltose 50 MG/ML Injectable Solution [In jectafer] 11/14/2020 12:00:00 AM EDT eCW1 ([facility]) ferric carboxymaltose 50 MG/ML Injectable Solution [In jectafer] 11/14/2020 12:00:00 AM EDT eCW1 ([facility]) Mupirocin 0.02 MG/MG Topical Ointment 11/14/2020 12:00:00 AM EDT eCW1 ([facility]) ferric carboxymaltose 50 MG/ML Injectable Solution [In jectafer] 11/14/2020 12:00:00 AM EDT eCW1 ([facility]) Mupirocin 0.02 MG/MG Topical Ointment 11/14/2020 12:00:00 AM EDT eCW1 ([facility]) ferric carboxymaltose 50 MG/ML Injectable Solution [In jectafer] 11/14/2020 12:00:00 AM EDT eCW1 ([facility]) Mupirocin 0.02 MG/MG Topical Ointment 11/14/2020 12:00:00 AM EDT eCW1 ([facility]) ferric carboxymaltose 50 MG/ML Injectable Solution [In jectafer] 11/14/2020 12:00:00 AM EDT eCW1 ([facility]) ferric carboxymaltose 50 MG/ML Injectable Solution [In jectafer] 11/14/2020 12:00:00 AM EDT eCW1 ([facility]) Mupirocin 0.02 MG/MG Topical Ointment 11/14/2020 12:00:00 AM EDT eCW1 ([facility]) ferric carboxymaltose 50 MG/ML Injectable Solution [In jectafer] 11/14/2020 12:00:00 AM EDT eCW1 ([facility]) Mupirocin 0.02 MG/MG Topical Ointment 11/14/2020 12:00:00 AM EDT eCW1 ([facility]) ferric carboxymaltose 50 MG/ML Injectable Solution [In jectafer] 11/14/2020 12:00:00 AM EDT eCW1 ([facility]) Mupirocin 0.02 MG/MG Topical Ointment 11/14/2020 12:00:00 AM EDT eCW1 ([facility]) Mupirocin 0.02 MG/MG Topical Ointment 11/14/2020 12:00:00 AM EDT eCW1 ([facility]) ferric carboxymaltose 50 MG/ML Injectable Solution [In jectafer] 11/14/2020 12:00:00 AM EDT eCW1 ([facility]) ferric carboxymaltose 50 MG/ML Injectable Solution [In jectafer] 11/14/2020 12:00:00 AM EDT eCW1 ([facility]) Mupirocin 0.02 MG/MG Topical Ointment 11/14/2020 12:00:00 AM EDT eCW1 ([facility]) Mupirocin 0.02 MG/MG Topical Ointment 11/14/2020 12:00:00 AM EDT eCW1 ([facility]) ferric carboxymaltose 50 MG/ML Injectable Solution [In jectafer] 11/14/2020 12:00:00 AM EDT eCW1 ([facility]) Mupirocin 0.02 MG/MG Topical Ointment 11/14/2020 12:00:00 AM EDT eCW1 ([facility]) ferric carboxymaltose 50 MG/ML Injectable Solution [In jectafer] 11/14/2020 12:00:00 AM EDT eCW1 ([facility]) ferric carboxymaltose 50 MG/ML Injectable Solution [In jectafer] 11/14/2020 12:00:00 AM EDT eCW1 ([facility]) Mupirocin 0.02 MG/MG Topical Ointment 11/14/2020 12:00:00 AM EDT eCW1 ([facility]) ferric carboxymaltose 50 MG/ML Injectable Solution [In jectafer] 11/14/2020 12:00:00 AM EDT eCW1 ([facility]) Mupirocin 0.02 MG/MG Topical Ointment 11/14/2020 12:00:00 AM EDT eCW1 ([facility]) Mupirocin 0.02 MG/MG Topical Ointment 11/14/2020 12:00:00 AM EDT eCW1 ([facility]) ferric carboxymaltose 50 MG/ML Injectable Solution [In jectafer] 11/14/2020 12:00:00 AM EDT eCW1 ([facility]) Mupirocin 0.02 MG/MG Topical Ointment 11/14/2020 12:00:00 AM EDT eCW1 ([facility]) ferric carboxymaltose 50 MG/ML Injectable Solution [In jectafer] 11/14/2020 12:00:00 AM EDT eCW1 ([facility]) Blood Glucose Test - 11/03/2020 12:00:00 AM EDT eCW1 ([facility]) Lancets - 11/03/2020 12:00:00 AM EDT e CW1 ([facility] [facility]) Glucometer 11/03/2020 12:00:00 AM EDT e CW1 ([facility]) Blood Glucose Test - 11/03/2020 12:00:00 AM EDT eCW1 ([facility]) Glucometer 11/03/2020 12:00:00 AM EDT e CW1 ([facility]) Lancets - 11/03/2020 12:00:00 AM EDT e CW1 ([facility]) Blood Glucose Test - 11/03/2020 12:00:00 AM EDT eCW1 ([facility]) Lancets - 11/03/2020 12:00:00 AM EDT e CW1 ([facility]) Glucometer 11/03/2020 12:00:00 AM EDT e CW1 ([facility]) 60 ACTUAT Fluticasone propionate 0.25 MG /ACTUAT / salmeterol 0.05 MG/ACTUAT Dry Powder Inhaler [Advair] 07/07/2020 12:00:00 AM EDT eCW1 ([facility]) 60 ACTUAT Fluticasone propionate 0.25 MG /ACTUAT / salmeterol 0.05 MG/ACTUAT Dry Powder Inhaler [Advair] 07/07/2020 12:00:00 AM EDT eCW1 ([facility]) 60 ACTUAT Fluticasone propionate 0.25 MG /ACTUAT / salmeterol 0.05 MG/ACTUAT Dry Powder Inhaler [Advair] 07/07/2020 12:00:00 AM EDT eCW1 ([facility]) 60 ACTUAT Fluticasone propionate 0.25 MG /ACTUAT / salmeterol 0.05 MG/ACTUAT Dry Powder Inhaler [Advair] 07/07/2020 12:00:00 AM EDT eCW1 ([facility]) 60 ACTUAT Fluticasone propionate 0.25 MG /ACTUAT / salmeterol 0.05 MG/ACTUAT Dry Powder Inhaler [Advair] 07/07/2020 12:00:00 AM EDT eCW1 ([facility]) 60 ACTUAT Fluticasone propionate 0.25 MG /ACTUAT / salmeterol 0.05 MG/ACTUAT Dry Powder Inhaler [Advair] 07/07/2020 12:00:00 AM EDT eCW1 ([facility]) 60 ACTUAT Fluticasone propionate 0.25 MG /ACTUAT / salmeterol 0.05 MG/ACTUAT Dry Powder Inhaler [Advair] 07/07/2020 12:00:00 AM EDT eCW1 ([facility]) 60 ACTUAT Fluticasone propionate 0.25 MG /ACTUAT / salmeterol 0.05 MG/ACTUAT Dry Powder Inhaler [Advair] 07/07/2020 12:00:00 AM EDT eCW1 ([facility]) 60 ACTUAT Fluticasone propionate 0.25 MG /ACTUAT / salmeterol 0.05 MG/ACTUAT Dry Powder Inhaler [Advair] 07/07/2020 12:00:00 AM EDT eCW1 ([facility]) 60 ACTUAT Fluticasone propionate 0.25 MG /ACTUAT / salmeterol 0.05 MG/ACTUAT Dry Powder Inhaler [Advair] 07/07/2020 12:00:00 AM EDT eCW1 ([facility]) 60 ACTUAT Fluticasone propionate 0.25 MG /ACTUAT / salmeterol 0.05 MG/ACTUAT Dry Powder Inhaler [Advair] 07/07/2020 12:00:00 AM EDT eCW1 ([facility]) 60 ACTUAT Fluticasone propionate 0.25 MG /ACTUAT / salmeterol 0.05 MG/ACTUAT Dry Powder Inhaler [Advair] 07/07/2020 12:00:00 AM EDT eCW1 ([facility]) POLYETHYLENE GLYCOL 3350 142 MG/ML [...] 02/07/2020 12:00:00 AM EST eCW1 ([facility]) Cyclobenzaprine hydrochloride 10 MG Oral Tablet 02/07/2020 12:00:00 AM EST eCW1 ([facility]) Cyclobenzaprine hydrochloride 10 MG Oral Tablet 02/07/2020 12:00:00 AM EST eCW1 ([facility]) Cyclobenzaprine hydrochloride 5 MG Oral Tablet 02/07/2020 12:00:00 AM EST eCW1 ([facility]) Alprazolam 1 MG Oral Tablet MARILIA ([facility]) Amoxicillin 500 MG / Clavulanate 125 MG Oral Tablet [facility]ILIA ([facility]) Estradiol 0.1 MG/ML Vaginal Cream MARILIA ([facility]) glimepiride 1 MG Oral Tablet [facility]IA ([facility]) cefdinir 300 MG Oral Capsule MARILIA ([facility]) Ciprofloxacin 250 MG Oral Tablet [facility]IA ([facility]) Doxycycline Monohydrate 100 MG Oral Capsule MARILIA ([facility]) 0.3 ML Enoxaparin sodium 100 MG/ML Prefilled Syringe MARILIA ([facility]) Oxycodone Hydrochloride 5 MG Oral Tablet [facility]IA ([facility]) Acetaminophen 325 MG / Oxycodone Hydrochloride 5 MG Oral Tablet [facility]IA ([facility]) Prednisone 20 MG Oral Tablet [facility] ([facility]) tramadol hydrochloride 50 MG Oral Tablet [facility]IA ([facility]) glimepiride 2 MG Oral Tablet [facility]IA ([facility]) Methylprednisolone 2 MG Oral Tablet [Medrol] MARILIA ([facility]) Methylprednisolone 4 MG Oral Tablet [facility] ([facility]) glimepiride 1 MG Oral Tablet [facility] ([facility]) glimepiride 2 MG Oral Tablet [facility]ILIA ([facility]) 0.3 ML Enoxaparin sodium 100 MG/ML Prefilled Syringe MARILIA ([facility]) Ciprofloxacin 250 MG Oral Tablet [facility]ILIA ([facility]) Estradiol 0.1 MG/ML Vaginal Cream MARILIA ([facility]) Doxycycline Monohydrate 100 MG Oral Capsule MAR[facility]IA ([facility]) Methylprednisolone 4 MG Oral Tablet [facility]IA ([facility]) Methylprednisolone 2 MG Oral Tablet [Medrol] [facility]ILIA ([facility]) tramadol hydrochloride 50 MG Oral Tablet [facility] ([facility]) Oxycodone Hydrochloride 5 MG Oral Tablet [facility]IA ([facility]) Acetaminophen 325 MG / Oxycodone Hydrochloride 5 MG Oral Tablet [facility] ([facility]) Prednisone 20 MG Oral Tablet [facility] ([facility]) Alprazolam 1 MG Oral Tablet [facility] ([facility]) Amoxicillin 500 MG / Clavulanate 125 MG Oral Tablet [facility]IA ([facility]) cefdinir 300 MG Oral Capsule [facility] ([facility]) Ciprofloxacin 250 MG Oral Tablet [facility] ([facility]) Doxycycline Monohydrate 100 MG Oral Capsule [facility]IA ([facility]) 0.3 ML Enoxaparin sodium 100 MG/ML Prefilled Syringe [facility]IA ([facility]) Estradiol 0.1 MG/ML Vaginal Cream [facility]ILIA ([facility]) Methylprednisolone 2 MG Oral Tablet [Medrol] [facility]ILIA ([facility]) Methylprednisolone 4 MG Oral Tablet [facility] ([facility]) Oxycodone Hydrochloride 5 MG Oral Tablet [facility] ([facility]) Acetaminophen 325 MG / Oxycodone Hydrochloride 5 MG Oral Tablet [facility] ([facility]) Prednisone 20 MG Oral Tablet [facility] ([facility]) Amoxicillin 500 MG / Clavulanate 125 MG Oral Tablet [facility] ([facility]) tramadol hydrochloride 50 MG Oral Tablet [facility] ([facility]) Alprazolam 1 MG Oral Tablet [facility] ([facility]) Amoxicillin 500 MG / Clavulanate 125 MG Oral Tablet [facility] ([facility]) cefdinir 300 MG Oral Capsule [facility] ([facility]) Ciprofloxacin 250 MG Oral Tablet [facility] ([facility]) tramadol hydrochloride 50 MG Oral Tablet [facility] ([facility]) Doxycycline Monohydrate 100 MG Oral Capsule [facility] ([facility]) 0.3 ML Enoxaparin sodium 100 MG/ML Prefilled Syringe [facility]IA ([facility]) Estradiol 0.1 MG/ML Vaginal Cream [facility]IA ([facility]) Methylprednisolone 2 MG Oral Tablet [Medrol] [facility]IA ([facility]) Methylprednisolone 4 MG Oral Tablet [facility] ([facility]) Oxycodone Hydrochloride 5 MG Oral Tablet [facility] ([facility]) Acetaminophen 325 MG / Oxycodone Hydrochloride 5 MG Oral Tablet [facility] ([facility]) Prednisone 20 MG Oral Tablet [facility] ([facility]) Alprazolam 1 MG Oral Tablet [facility] ([facility]) Amoxicillin 500 MG / Clavulanate 125 MG Oral Tablet [facility] ([facility]) Oxycodone Hydrochloride 5 MG Oral Tablet [facility] ([facility]) cefdinir 300 MG Oral Capsule [facility] ([facility]) Acetaminophen 325 MG / Oxycodone Hydrochloride 5 MG Oral Tablet [facility] ([facility]) Doxycycline Monohydrate 100 MG Oral Capsule [facility] ([facility]) 0.3 ML Enoxaparin sodium 100 MG/ML Prefilled Syringe [facility] ([facility]) Ciprofloxacin 250 MG Oral Tablet [facility] ([facility]) Estradiol 0.1 MG/ML Vaginal Cream [facility] ([facility]) Methylprednisolone 2 MG Oral Tablet [Medrol] [facility] ([facility]) Methylprednisolone 4 MG Oral Tablet [facility] ([facility]) Prednisone 20 MG Oral Tablet [facility] ([facility]) tramadol hydrochloride 50 MG Oral Tablet [facility] ([facility]) Methylprednisolone 2 MG Oral Tablet [Medrol] [facility] ([facility]) cefdinir 300 MG Oral Capsule [facility] ([facility]) Ciprofloxacin 250 MG Oral Tablet [facility] ([facility]) Doxycycline Monohydrate 100 MG Oral Capsule [facility] ([facility]) 0.3 ML Enoxaparin sodium 100 MG/ML Prefilled Syringe [facility] ([facility]) Estradiol 0.1 MG/ML Vaginal Cream [facility] ([facility]) Alprazolam 1 MG Oral Tablet [facility] ([facility]) Amoxicillin 500 MG / Clavulanate 125 MG Oral Tablet [facility] ([facility]) tramadol hydrochloride 50 MG Oral Tablet [facility] ([facility]) Methylprednisolone 4 MG Oral Tablet [facility] ([facility]) Oxycodone Hydrochloride 5 MG Oral Tablet [facility] ([facility]) Acetaminophen 325 MG / Oxycodone Hydrochloride 5 MG Oral Tablet [facility] ([facility]) Prednisone 20 MG Oral Tablet [facility] ([facility]) Amoxicillin 500 MG / Clavulanate 125 MG Oral Tablet [facility] ([facility]) Ciprofloxacin 250 MG Oral Tablet [facility] ([facility]) Cyclobenzaprine hydrochloride 5 MG Oral Tablet [facility] ([facility]) Doxycycline Monohydrate 100 MG Oral Capsule [facility] ([facility]) 0.3 ML Enoxaparin sodium 100 MG/ML Prefilled Syringe [facility] ([facility]) Estradiol 0.1 MG/ML Vaginal Cream [facility]IA ([facility]) glimepiride 1 MG Oral Tablet [facility] ([facility]) Methylprednisolone 2 MG Oral Tablet [Medrol] [facility] ([facility]) Methylprednisolone 4 MG Oral Tablet [facility] ([facility]) Oxycodone Hydrochloride 5 MG Oral Tablet [facility] ([facility]) Acetaminophen 325 MG / Oxycodone Hydrochloride 5 MG Oral Tablet [facility] ([facility]) Prednisone 20 MG Oral Tablet [facility] ([facility]) tramadol hydrochloride 50 MG Oral Tablet [facility] ([facility]) Doxycycline Monohydrate 100 MG Oral Capsule [facility] ([facility]) 0.3 ML Enoxaparin sodium 100 MG/ML Prefilled Syringe [facility] ([facility]) Amoxicillin 500 MG / Clavulanate 125 MG Oral Tablet [facility] ([facility]) Ciprofloxacin 250 MG Oral Tablet [facility] ([facility]) Cyclobenzaprine hydrochloride 5 MG Oral Tablet [facility] ([facility]) Oxycodone Hydrochloride 5 MG Oral Tablet [facility] ([facility]) Estradiol 0.1 MG/ML Vaginal Cream [facility] ([facility]) Acetaminophen 325 MG / Oxycodone Hydrochloride 5 MG Oral Tablet [facility] ([facility]) Prednisone 20 MG Oral Tablet [facility] ([facility]) tramadol hydrochloride 50 MG Oral Tablet [facility] ([facility]) glimepiride 1 MG Oral Tablet [facility] ([facility]) Methylprednisolone 2 MG Oral Tablet [Medrol] [facility] ([facility]) Methylprednisolone 4 MG Oral Tablet [facility] ([facility]) Doxycycline Monohydrate 100 MG Oral Capsule [facility] ([facility]) Ciprofloxacin 250 MG Oral Tablet [facility] ([facility]) Amoxicillin 500 MG / Clavulanate 125 MG Oral Tablet [facility] ([facility]) Estradiol 0.1 MG/ML Vaginal Cream [facility]ILIA ([facility]) 0.3 ML Enoxaparin sodium 100 MG/ML Prefilled Syringe [facility]IA ([facility]) tramadol hydrochloride 50 MG Oral Tablet [facility] ([facility]) glimepiride 1 MG Oral Tablet [facility] ([facility]) glimepiride 2 MG Oral Tablet [facility] ([facility]) Methylprednisolone 2 MG Oral Tablet [Medrol] [facility] ([facility]) Methylprednisolone 4 MG Oral Tablet [facility] ([facility]) Oxycodone Hydrochloride 5 MG Oral Tablet [facility] ([facility]) Acetaminophen 325 MG / Oxycodone Hydrochloride 5 MG Oral Tablet [facility] ([facility]) Prednisone 20 MG Oral Tablet [facility] ([facility]) Estradiol 0.1 MG/ML Vaginal Cream MARILIA ([facility]) Amoxicillin 500 MG / Clavulanate 125 MG Oral Tablet [facility] ([facility]) Ciprofloxacin 250 MG Oral Tablet [facility] ([facility]) Doxycycline Monohydrate 100 MG Oral Capsule [facility] ([facility]) 0.3 ML Enoxaparin sodium 100 MG/ML Prefilled Syringe [facility]IA ([facility]) Methylprednisolone 2 MG Oral Tablet [Medrol] [facility] ([facility]) Methylprednisolone 4 MG Oral Tablet [facility] ([facility]) glimepiride 1 MG Oral Tablet [facility] ([facility]) glimepiride 2 MG Oral Tablet [facility] ([facility]) Oxycodone Hydrochloride 5 MG Oral Tablet [facility] ([facility]) Acetaminophen 325 MG / Oxycodone Hydrochloride 5 MG Oral Tablet [facility]IA ([facility]) Prednisone 20 MG Oral Tablet [facility] ([facility]) tramadol hydrochloride 50 MG Oral Tablet [facility]ILIA ([facility])
--- NOTE | 2021-02-14 15:17 | REP ---
INDICATION: Fractures. COMPARISON: Bilateral feet, 10/25/2018 TECHNIQUE: Four views of each foot were obtained. FINDINGS: Right foot: Status post screw and plate fusion of the 1st metatarsophalangeal joint. There has been surgical resection of the heads of the 2nd through 5th metatarsals. There is arthritic spurring at the 2nd through 5th metatarsophalangeal joints. There is a possible acute fracture of the base of the proximal phalanx of the 5th toe. There is moderate arthritis of the 1st tarsal metatarsal joint. There is a small plantar spur. There is a posterior heel spur. Left foot: There are healed fractures of the necks of the 4th and 5th metatarsals. There are no acute fractures identified. There is arthritis of the 4th MTP joint and the 1st TMT joint. There is a plantar spur. There is a posterior heel spur. IMPRESSION: Right foot: 1. Status post fusion of the 1st tarsal metatarsal joint. 2. Apparent surgical resection of the heads of the 2nd through 5th metatarsals as described. 3. Possible acute fracture of the proximal phalanx of the 5th toe. 4. Multifocal arthropathy as described. 5. Heel spurs. Left foot: 1. Healed fractures of the necks of the 4th and 5th metatarsals. 2. Multifocal arthropathy, as described. 3. Heel spurs. <Electronically signed by Natan Perez > 02/14/21 [id number]
[2021-02-14] MEDS ORDERED: POTASSIUM CHLORIDE 10MEQ SR TABLET PO ONE ×2 (16:00→18:00)
[2021-02-14] MEDS ORDERED: AMMONIA AROMATIC INHALANT STA (16:43)
[2021-02-14] MEDS ORDERED: OLANZapine INTRAMUSCULAR 10MG VIAL IM ONE (18:00)
[2021-02-14] MEDS: DOCUSATE SODIUM 100MG CAPSULE PO SCH (19:48)
[2021-02-14] MEDS: HumaLOG INSULIN (NovoLOG) PER UNIT SC SCH ×3 (19:48→21:00)
[2021-02-14] MEDS: BACLOFEN 10 MG TAB PO SCH ×2 (19:49→22:15)
[2021-02-14] MEDS: DULoxetine 30MG CAPSULE (CYMBALTA) PO SCH (19:52)
[2021-02-14 22:00] VITALS: BP 109/68
--- NOTE | 2021-02-14 22:14 | REPVR ---
PROCEDURE INFORMATION: Exam: MR Head Without Contrast Exam date and time: 02/14/2021 9:02 PM Age: 65 years old Clinical indication: Other: CVA TECHNIQUE: Imaging protocol: MR of the head without contrast. COMPARISON: CT Head without contrast 02/14/2021 10:37 AM FINDINGS: Age-related volume loss. Major vascular flow voids at the skull base are preserved. No extra-axial fluid collection. No hydrocephalus. No midline shift or intracranial mass effect. Mild nonspecific white matter gliosis, probable chronic microvascular ischemia. No cerebral edema or pathologic susceptibility. No diffusion restriction. Mild paranasal sinus disease. Small right mastoid effusion. IMPRESSION: No acute intracranial abnormality. Electronically signed by: Hira Valera On 02/14/2021 22:14:21 PM
[2021-02-14] MEDS: HEPARIN SOD (PORCINE) 5000UNITS/ML 1ML VIAL/SYRINGE SC SCH (22:15)
[2021-02-14] MEDS: MAGNESIUM OXIDE 400MG TAB (MAG-OX) PO SCH (22:16)
[2021-02-14] MEDS: RAMELTEON 8 MG TAB (ROZEREM) PO SCH (22:16)
--- NOTE | 2021-02-14 22:16 | REPVR ---
PROCEDURE INFORMATION: Exam: MRA Head Without Contrast; Arteriography Exam date and time: 02/14/2021 9:02 PM Age: 65 years old Clinical indication: Other: CVA TECHNIQUE: Imaging protocol: Magnetic resonance angiography head without contrast. Exam focused on the arteries. COMPARISON: CT Head without contrast 02/14/2021 10:37 AM FINDINGS: ANTERIOR CIRCULATION: Right internal carotid artery: Intracranial segment is patent with no significant stenosis. No aneurysm. Right middle cerebral artery: No occlusion or significant stenosis. No aneurysm. Right anterior cerebral artery: No occlusion or significant stenosis. No aneurysm. Left internal carotid artery: Intracranial segment is patent with no significant stenosis. No aneurysm. Left middle cerebral artery: No occlusion or significant stenosis. No aneurysm. Left anterior cerebral artery: No occlusion or significant stenosis. No aneurysm. POSTERIOR CIRCULATION: Right vertebral artery: No occlusion or significant stenosis. No aneurysm. Left vertebral artery: No occlusion or significant stenosis. No aneurysm. Basilar artery: No occlusion or significant stenosis. No aneurysm. Right posterior cerebral artery: No occlusion or significant stenosis. No aneurysm. Left posterior cerebral artery: No occlusion or significant stenosis. No aneurysm. IMPRESSION: No hemodynamically significant stenosis or large vessel occlusion. Electronically signed by: Hira Valera On 02/14/2021 22:15:48 PM
[2021-02-14] MEDS: NS 1,000 ML IV SCH ×2 (22:20→23:00)
--- NOTE | 2021-02-14 22:30 | REPVR ---
PROCEDURE INFORMATION: Exam: US Duplex Bilateral Extracranial Arteries Exam date and time: 02/14/2021 8:31 PM Age: 65 years old Clinical indication: Other: AMS; Additional info: CVA TECHNIQUE: Imaging protocol: Real-time Duplex ultrasound scan of the bilateral carotid and vertebral arteries combining caban scale, color Doppler and spectral waveform analysis. Bilateral exam. COMPARISON: CT Head without contrast 02/14/2021 10:37 AM FINDINGS: Right common carotid artery: Peak systolic velocity of the right common carotid artery is 78.9 cm/s. Right internal carotid artery: Peak systolic velocity of the right internal carotid artery is 56.8 cm/s. Right ICA/CCA ratio: Right ICA CCA ratio is 0.72. Right external carotid artery: No stenosis in the origin. Right vertebral artery: Unremarkable. Antegrade flow. Left common carotid artery: Peak systolic velocity of the left common carotid artery is 63.2 cm/s. Left internal carotid artery: Peak systolic velocity of the left internal carotid artery is 65.2 cm/s. Left ICA/CCA ratio: Left ICA CCA ratio is 1.03. Left external carotid artery: No stenosis in the origin. Left vertebral artery: Unremarkable. Antegrade flow. IMPRESSION: No evidence of hemodynamically significant stenosis. REFERENCES: SRU CRITERIA. The degree of internal carotid artery stenosis is based on criteria defined by the Society of Radiologists in Ultrasound (SRU). Normal is no stenosis. Mild is less than 50% stenosis. Moderate is 50-69% stenosis. Severe is greater than 69% stenosis to near occlusion. Near occlusion is a markedly narrowed lumen. Total occlusion is no detectable patent lumen. Electronically signed by: Hira Valera On 02/14/2021 22:29:27 PM
[2021-02-14] MEDS: AMITRIPTYLINE 25MG TABLET PO SCH (22:41)
[2021-02-14] MEDS: NYSTATIN 100,000 UNITS/GM TOPICAL PWD 15 GM TOP SCH (22:42)
[2021-02-15] VITALS: BP 104/60
[2021-02-15 04:00] VITALS: BP 94/55
[2021-02-15 05:19] LABS: HEMATOCRIT 32.3 % (36.0-47.0); HEMOGLOBIN 10.3 g/dl (12.0-15.5); MEAN CORPUSCULAR HEMOGLOBIN 28.6 pg (27.0-33.0); MEAN CORPUSCULAR HGB CONC 31.9 g/dl (32.0-36.5); MEAN CORPUSCULAR VOLUME 89.7 fl (80.0-96.0); PLATELET COUNT, AUTOMATED 227 10^3/uL (150-450); WHITE BLOOD COUNT 5.2 10^3/uL (4.0-10.0)
--- NOTE | 2021-02-15 05:26 | ECGEPIP ---
[facility] - ED Test Date: 2021-02-14 Pat Name: CASSIE ARTHUR Department: Room: - Gender: Female [employer]: CARY : [id number] Requested By: MACK Lamas Order Number: [id number] Reading MD: Rickey Becker Measurements Intervals [place] Rate: 89 P: 66 IN: 206 QRS: 19 QRSD: 102 T: 41 QT: 418 QTc: 508 Interpretive Statements Normal sinus rhythm MODERATE INTRAVENTRICULAR CONDUCTION DELAY Nonspecific ST abnormality Prolonged QT SIMILAR TO 02/09/21 Electronically Signed on 02-15-2021 5:25:56 EST by Rickey Becker
[2021-02-15] MEDS: LEVOTHYROXINE 75MCG TABLET (0.075MG) PO SCH (05:48)
[2021-02-15] MEDS: NS 1,000 ML IV SCH ×3 (05:48→22:43)
[2021-02-15 05:53] LABS: ALBUMIN 2.4 GM/DL (3.2-5.2); ALT/SGPT 84 U/L (12-78); BILIRUBIN,TOTAL 1.4 MG/DL (0.2-1.0); BLOOD UREA NITROGEN 10 MG/DL (7-18); CARBON DIOXIDE LEVEL 24 MEQ/L (21-32); CHLORIDE LEVEL 113 MEQ/L (98-107); CREATININE FOR GFR 0.52 MG/DL (0.55-1.30); GLOMERULAR FILTRATION RATE > 60.0 (>45); GLUCOSE, FASTING 119 MG/DL (70-100); MAGNESIUM LEVEL 1.8 MG/DL (1.8-2.4); POTASSIUM SERUM 3.5 MEQ/L (3.5-5.1); SODIUM LEVEL 145 MEQ/L (136-145); TOTAL PROTEIN 5.6 GM/DL (6.4-8.2)
[2021-02-15] MEDS: ACETAMINOPHEN TAB 650MG DOSE (2X325MG) PO PRN ×2 (07:48→22:43)
[2021-02-15 08:47] VITALS: BP 105/60
[2021-02-15] MEDS: MAGNESIUM OXIDE 400MG TAB (MAG-OX) PO SCH ×2 (08:53→21:41)
[2021-02-15] MEDS: ASPIRIN 81MG ENTERIC TABLET PO SCH (08:53)
[2021-02-15] MEDS: DOCUSATE SODIUM 100MG CAPSULE PO SCH ×2 (08:53→12:32)
[2021-02-15] MEDS: ROSUVASTATIN 10 MG TAB (CRESTOR) PO SCH (08:53)
[2021-02-15] MEDS: POTASSIUM CHLORIDE 10MEQ SR TABLET PO SCH (08:53)
[2021-02-15] MEDS: SENNA 8.6 MG TAB (SENOKOT) PO SCH (08:54)
[2021-02-15] MEDS: DULoxetine 30MG CAPSULE (CYMBALTA) PO SCH ×2 (08:54→12:33)
[2021-02-15] MEDS: BACLOFEN 10 MG TAB PO SCH ×4 (08:54→21:41)
[2021-02-15] MEDS: HEPARIN SOD (PORCINE) 5000UNITS/ML 1ML VIAL/SYRINGE SC SCH ×2 (08:54→21:42)
[2021-02-15] MEDS: PANTOPRAZOLE 40MG TAB (PROTONIX) PO SCH (08:54)
[2021-02-15] MEDS: NYSTATIN 100,000 UNITS/GM TOPICAL PWD 15 GM TOP SCH ×2 (08:55→21:43)
[2021-02-15] MEDS: HumaLOG INSULIN (NovoLOG) PER UNIT SC SCH ×4 (08:56→21:00)
[2021-02-15] MEDS ORDERED: VITAMIN D 50,000 UNITS CAPSULE (ERGOCALCIFEROL 1.25MG) PO SCH (09:00)
[2021-02-15] MEDS: GABAPENTIN 300 MG CAP PO SCH ×3 (09:40→21:00)
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
[2021-02-15] MEDS: INDAPAMIDE 1.25MG TABLET PO SCH (12:32)
[2021-02-15 12:33] VITALS: BP 106/60
[2021-02-15] MEDS: ESCITALOPRAM OXALATE 10 MG TAB (LEXAPRO) PO SCH (12:33)
[2021-02-15] MEDS: FOLIC ACID 1 MG TAB PO SCH (12:33)
[2021-02-15 16:17] VITALS: BP 107/66
[2021-02-15 20:00] VITALS: BP 91/55
[2021-02-15] MEDS: AMITRIPTYLINE 25MG TABLET PO SCH (21:41)
[2021-02-15] MEDS: RAMELTEON 8 MG TAB (ROZEREM) PO SCH (21:41)
[2021-02-16] VITALS (7 sets, daily range): BP systolic 80–140; BP diastolic 52–75
[2021-02-16 04:00] LABS: BASO % 0.9 % (0.0-1.0); EOS # 0.2 10^3/uL (0.0-0.5); EOS % 4.6 % (0.0-3.0); HEMATOCRIT 30.2 % (36.0-47.0); HEMOGLOBIN 9.4 g/dl (12.0-15.5); LYMPH # 2.6 10^3/uL (1.5-5.0); LYMPH % 57.3 % (24.0-44.0); MEAN CORPUSCULAR HEMOGLOBIN 28.1 pg (27.0-33.0); MEAN CORPUSCULAR HGB CONC 31.1 g/dl (32.0-36.5); MEAN CORPUSCULAR VOLUME 90.4 fl (80.0-96.0); MONO # 0.3 10^3/uL (0.0-0.8); MONO % 7.4 % (2.0-8.0); NEUTROPHILS # 1.4 10^3/uL (1.5-8.5); NEUTROPHILS % 29.8 % (36.0-66.0); PLATELET COUNT, AUTOMATED 221 10^3/uL (150-450); RED BLOOD COUNT 3.34 10^6/uL (4.00-5.40); WHITE BLOOD COUNT 4.6 10^3/uL (4.0-10.0)
[2021-02-16 04:23] LABS: ALBUMIN 2.4 GM/DL (3.2-5.2); ALT/SGPT 77 U/L (12-78); BILIRUBIN,TOTAL 0.8 MG/DL (0.2-1.0); BLOOD UREA NITROGEN 6 MG/DL (7-18); CALCIUM LEVEL 8.4 MG/DL (8.8-10.2); CARBON DIOXIDE LEVEL 27 MEQ/L (21-32); CHLORIDE LEVEL 114 MEQ/L (98-107); CREATININE FOR GFR 0.43 MG/DL (0.55-1.30); GLOMERULAR FILTRATION RATE > 60.0 (>45); GLUCOSE, FASTING 157 MG/DL (70-100); POTASSIUM SERUM 3.6 MEQ/L (3.5-5.1); SODIUM LEVEL 146 MEQ/L (136-145); TOTAL PROTEIN 4.9 GM/DL (6.4-8.2)
[2021-02-16] MEDS: LEVOTHYROXINE 75MCG TABLET (0.075MG) PO SCH (05:44)
[2021-02-16] MEDS: DOCUSATE SODIUM 100MG CAPSULE PO SCH ×2 (08:00→12:00)
[2021-02-16] MEDS: SENNA 8.6 MG TAB (SENOKOT) PO SCH (09:00)
[2021-02-16] MEDS: HumaLOG INSULIN (NovoLOG) PER UNIT SC SCH ×4 (09:15→21:00)
[2021-02-16] MEDS: HEPARIN SOD (PORCINE) 5000UNITS/ML 1ML VIAL/SYRINGE SC SCH ×2 (09:16→21:04)
[2021-02-16] MEDS: NYSTATIN 100,000 UNITS/GM TOPICAL PWD 15 GM TOP SCH ×2 (09:16→21:05)
[2021-02-16] MEDS: DULoxetine 30MG CAPSULE (CYMBALTA) PO SCH ×2 (09:17→13:45)
[2021-02-16] MEDS: ROSUVASTATIN 10 MG TAB (CRESTOR) PO SCH (09:17)
[2021-02-16] MEDS: ACETAMINOPHEN TAB 650MG DOSE (2X325MG) PO PRN (09:18)
[2021-02-16] MEDS: ASPIRIN 81MG ENTERIC TABLET PO SCH (09:18)
[2021-02-16] MEDS: CEFDINIR 300 MG CAP (OMNICEF) PO SCH ×2 (09:18→21:04)
[2021-02-16] MEDS: MAGNESIUM OXIDE 400MG TAB (MAG-OX) PO SCH ×2 (09:19→21:04)
[2021-02-16] MEDS: POTASSIUM CHLORIDE 10MEQ SR TABLET PO SCH (09:19)
[2021-02-16] MEDS: BACLOFEN 10 MG TAB PO SCH ×4 (09:19→21:05)
[2021-02-16] MEDS: PANTOPRAZOLE 40MG TAB (PROTONIX) PO SCH (09:19)
[2021-02-16] MEDS: GABAPENTIN 300 MG CAP PO SCH ×3 (09:19→21:04)
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
[2021-02-16] MEDS: INDAPAMIDE 1.25MG TABLET PO SCH (13:43)
[2021-02-16] MEDS: ESCITALOPRAM OXALATE 10 MG TAB (LEXAPRO) PO SCH (13:44)
[2021-02-16] MEDS: FOLIC ACID 1 MG TAB PO SCH (13:45)
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
[2021-02-16] MEDS ORDERED: NS 1,000 ML IV ONE (20:50)
[2021-02-16] MEDS: RAMELTEON 8 MG TAB (ROZEREM) PO SCH (21:04)
[2021-02-16] MEDS: AMITRIPTYLINE 25MG TABLET PO SCH (21:04)
[2021-02-17] VITALS: BP 107/55
[2021-02-17 04:00] VITALS: BP 106/58
[2021-02-17] MEDS: LEVOTHYROXINE 75MCG TABLET (0.075MG) PO SCH (05:15)
[2021-02-17 05:39] LABS: BASO # 0.1 10^3/uL (0.0-0.2); BASO % 1.1 % (0.0-1.0); EOS # 0.3 10^3/uL (0.0-0.5); EOS % 5.3 % (0.0-3.0); HEMATOCRIT 32.1 % (36.0-47.0); HEMOGLOBIN 10.1 g/dl (12.0-15.5); LYMPH # 2.3 10^3/uL (1.5-5.0); LYMPH % 49.6 % (24.0-44.0); MEAN CORPUSCULAR HEMOGLOBIN 28.4 pg (27.0-33.0); MEAN CORPUSCULAR HGB CONC 31.5 g/dl (32.0-36.5); MEAN CORPUSCULAR VOLUME 90.2 fl (80.0-96.0); MONO # 0.3 10^3/uL (0.0-0.8); MONO % 6.8 % (2.0-8.0); NEUTROPHILS # 1.8 10^3/uL (1.5-8.5); PLATELET COUNT, AUTOMATED 253 10^3/uL (150-450); RED BLOOD COUNT 3.56 10^6/uL (4.00-5.40); WHITE BLOOD COUNT 4.7 10^3/uL (4.0-10.0)
[2021-02-17 06:14] LABS: ALBUMIN 2.3 GM/DL (3.2-5.2); ALT/SGPT 78 U/L (12-78); BILIRUBIN,TOTAL 0.7 MG/DL (0.2-1.0); BLOOD UREA NITROGEN 7 MG/DL (7-18); CARBON DIOXIDE LEVEL 29 MEQ/L (21-32); CHLORIDE LEVEL 112 MEQ/L (98-107); CREATININE FOR GFR 0.52 MG/DL (0.55-1.30); GLOMERULAR FILTRATION RATE > 60.0 (>45); GLUCOSE, FASTING 142 MG/DL (70-100); POTASSIUM SERUM 3.5 MEQ/L (3.5-5.1); SODIUM LEVEL 144 MEQ/L (136-145); TOTAL PROTEIN 5.4 GM/DL (6.4-8.2)
[2021-02-17] MEDS: HumaLOG INSULIN (NovoLOG) PER UNIT SC SCH ×2 (07:30→12:41)
[2021-02-17 08:00] VITALS: BP 123/58
[2021-02-17] MEDS: DOCUSATE SODIUM 100MG CAPSULE PO SCH (08:00)
[2021-02-17] MEDS: SENNA 8.6 MG TAB (SENOKOT) PO SCH (09:00)
[2021-02-17] MEDS: HEPARIN SOD (PORCINE) 5000UNITS/ML 1ML VIAL/SYRINGE SC SCH (10:05)
[2021-02-17] MEDS: NYSTATIN 100,000 UNITS/GM TOPICAL PWD 15 GM TOP SCH (10:05)
[2021-02-17] MEDS: ASPIRIN 81MG ENTERIC TABLET PO SCH (10:06)
[2021-02-17] MEDS: CEFDINIR 300 MG CAP (OMNICEF) PO SCH (10:06)
[2021-02-17] MEDS: POTASSIUM CHLORIDE 10MEQ SR TABLET PO SCH (10:06)
[2021-02-17] MEDS: DULoxetine 30MG CAPSULE (CYMBALTA) PO SCH ×2 (10:07→12:40)
[2021-02-17] MEDS: PANTOPRAZOLE 40MG TAB (PROTONIX) PO SCH (10:07)
[2021-02-17] MEDS: BACLOFEN 10 MG TAB PO SCH ×2 (10:07→12:40)
[2021-02-17] MEDS: ROSUVASTATIN 10 MG TAB (CRESTOR) PO SCH (10:07)
[2021-02-17] MEDS: GABAPENTIN 300 MG CAP PO SCH (10:07)
[2021-02-17] MEDS: MAGNESIUM OXIDE 400MG TAB (MAG-OX) PO SCH (10:08)
[2021-02-17 12:00] VITALS: BP 102/62
[2021-02-17] MEDS: ESCITALOPRAM OXALATE 10 MG TAB (LEXAPRO) PO SCH (12:40)
[2021-02-17] MEDS: FOLIC ACID 1 MG TAB PO SCH (12:40)
[2021-02-17] MEDS ORDERED: CEFD300CAP PO (13:37)
[2021-02-17] MEDS ORDERED: GABA-282 PO (13:37)
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
== END 2021-02-17 16:42 | disposition home or self-care (01) | DRG 52 ==
LOC: EDBD 09:58 → M ED 09:58 → M MSPAV 14:14 → UNDOADMIN 14:14 → M ED INP 14:14 → ENRESERVTM 14:50 → ENRESERVDT 14:50 → M PCU 21:42
PROVIDERS: ADMIT Internal Medicine; ATTEND Internal Medicine
DX: G93.41 Metabolic encephalopathy (principal); I11.0 Hypertensive heart disease with heart failure; M62.82 Rhabdomyolysis; I50.32 Chronic diastolic (congestive) heart failure; E66.01 Morbid (severe) obesity due to excess calories; J45.909 Unspecified asthma, uncomplicated; E03.9 Hypothyroidism, unspecified; E11.9 Type 2 diabetes mellitus without complications; Z20.822 Contact with and (suspected) exposure to COVID-19; Z79.82 Long term (current) use of aspirin; Z79.84 Long term (current) use of oral hypoglycemic drugs; Z79.899 Other long term (current) drug therapy; Z88.1 Allergy status to other antibiotic agents; Z88.2 Allergy status to sulfonamides; Z88.8 Allergy status to other drugs, medicaments and biological substances; E78.5 Hyperlipidemia, unspecified; F32.A Depression, unspecified; F40.01 Agoraphobia with panic disorder; M81.0 Age-related osteoporosis without current pathological fracture; E55.9 Vitamin D deficiency, unspecified; K21.9 Gastro-esophageal reflux disease without esophagitis; M17.0 Bilateral primary osteoarthritis of knee; G47.33 Obstructive sleep apnea (adult) (pediatric); N39.41 Urge incontinence; Z86.711 Personal history of pulmonary embolism; Z90.49 Acquired absence of other specified parts of digestive tract; Z90.79 Acquired absence of other genital organ(s); E87.6 Hypokalemia; G25.0 Essential tremor; S92.514A Nondisplaced fracture of proximal phalanx of right lesser toe(s), initial encounter for closed fracture; W01.0XXA Fall on same level from slipping, tripping and stumbling without subsequent striking against object, initial encounter; Y92.009 Unspecified place in unspecified non-institutional (private) residence as the place of occurrence of the external cause; N39.0 Urinary tract infection, site not specified

== ENCOUNTER 2021-03-03 16:53 | Emergency (ER) | payer OTHER ==
[~2021-03-03] VITALS: Ht 167.6 cm; Wt 92.3 kg
[~2021-03-03 16:53] MED LIST changes: +CEFD300CAP PO; +GABA-282 PO
[2021-03-03 18:54] LABS: BASO # 0.1 10^3/uL (0.0-0.2); BASO % 0.8 % (0.0-1.0); EOS # 0.2 10^3/uL (0.0-0.5); EOS % 2.6 % (0.0-3.0); LYMPH # 2.7 10^3/uL (1.5-5.0); LYMPH % 43.3 % (24.0-44.0); MEAN CORPUSCULAR HEMOGLOBIN 28.9 pg (27.0-33.0); MEAN CORPUSCULAR HGB CONC 32.5 g/dl (32.0-36.5); MEAN CORPUSCULAR VOLUME 88.9 fl (80.0-96.0); MONO # 0.4 10^3/uL (0.0-0.8); MONO % 6.4 % (2.0-8.0); NEUTROPHILS # 2.9 10^3/uL (1.5-8.5); NEUTROPHILS % 46.7 % (36.0-66.0); PLATELET COUNT, AUTOMATED 261 10^3/uL (150-450); WHITE BLOOD COUNT 6.2 10^3/uL (4.0-10.0)
[2021-03-03 19:28] LABS: ALBUMIN 3.8 GM/DL (3.2-5.2); ALT/SGPT 72 U/L (12-78); BILIRUBIN,DIRECT 0.2 MG/DL (0.0-0.2); BILIRUBIN,TOTAL 0.8 MG/DL (0.2-1.0); BLOOD UREA NITROGEN 10 MG/DL (7-18); CALCIUM LEVEL 8.7 MG/DL (8.8-10.2); CARBON DIOXIDE LEVEL 28 MEQ/L (21-32); CHLORIDE LEVEL 101 MEQ/L (98-107); CREATININE FOR GFR 0.74 MG/DL (0.55-1.30); GLOMERULAR FILTRATION RATE > 60.0 (>45); GLUCOSE, FASTING 110 MG/DL (70-100); LIPASE 68 U/L (73-393); SODIUM LEVEL 137 MEQ/L (136-145); TOTAL PROTEIN 7.2 GM/DL (6.4-8.2)
[2021-03-03] MEDS ORDERED: NS 1,000 ML IV ONE (19:30)
[2021-03-03] MEDS ORDERED: ONDANSETRON 4MG/2ML VIAL IV ONE (19:30)
[2021-03-03] MEDS ORDERED: MORPHINE 4 MG/ML 1ML VIAL/SYRINGE (J2270) IV ONE (19:30)
[2021-03-03] MEDS ORDERED: ISOVUE-370 76% 100ML VIAL As Ordered ONE (19:36)
[2021-03-03] MEDS ORDERED: DICYCLOMINE 10 MG CAP PO ONE (20:10)
[2021-03-03 20:31] LABS: RSV AMPLIFICATION NEGATIVE (NEGATIVE)
[2021-03-03 20:40] VITALS: BP 114/60
--- NOTE | 2021-03-03 20:55 | REPVR ---
PROCEDURE INFORMATION: Exam: CT Abdomen And Pelvis With Contrast Exam date and time: 03/03/2021 7:48 PM Age: 65 years old Clinical indication: Abdominal pain; Additional info: Lower abd pain, diarrhea TECHNIQUE: Imaging protocol: Computed tomography of the abdomen and pelvis with contrast. Radiation optimization: All CT scans at this facility use at least one of these dose optimization techniques: automated exposure control; mA and/or kV adjustment per patient size (includes targeted exams where dose is matched to clinical indication); or iterative reconstruction. Contrast material: ISOVUE 370; Contrast volume: 100 ml; Contrast route: INTRAVENOUS (IV); COMPARISON: CT ABD PELVIS W/O CONTRAST 02/09/2021 5:30 PM FINDINGS: Lungs: No suspicious mass or airspace process in the visualized lung bases. Liver: Liver appears normal with no focal abnormality. Gallbladder and bile ducts: Gallbladder is surgically absent. Pancreas: Pancreas appears normal. No focal mass or peripancreatic inflammation. Spleen: Spleen appears homogeneous without focal mass. Adrenal glands: Adrenal glands are normal in appearance. Kidneys and ureters: Kidneys are unremarkable aside from a benign simple fluid density 7 mm right renal midpole cyst that does not require follow-up. Stomach and bowel: No evidence of small bowel obstruction. No evidence of acute diverticulitis. No abnormal colonic wall thickening or pericolonic inflammation. Appendix: No evidence of acute appendicitis. Intraperitoneal space: No pneumoperitoneum. Vasculature: No aortic aneurysm. Main portal and splenic veins enhance normally. Lymph nodes: No enlarged lymph nodes. Urinary bladder: Urinary bladder appears normal. Reproductive: Uterus is surgically absent. Bones/joints: Bony structures show no acute fracture or destructive process. Soft tissues: Miniscule fat containing umbilical hernia is present. IMPRESSION: No acute or concerning focal abdominal or pelvic process to explain the clinical presentation. Electronically signed by: Kamran Sweeney On 03/03/2021 20:55:06 PM
== END 2021-03-03 21:55 | disposition home or self-care (01) ==
LOC: M ED 16:53
DX: K52.9 Noninfective gastroenteritis and colitis, unspecified (principal); E11.9 Type 2 diabetes mellitus without complications; I50.9 Heart failure, unspecified; J45.909 Unspecified asthma, uncomplicated; G25.0 Essential tremor; K74.60 Unspecified cirrhosis of liver; Z79.899 Other long term (current) drug therapy; Z79.890 Hormone replacement therapy; Z79.84 Long term (current) use of oral hypoglycemic drugs; Z79.82 Long term (current) use of aspirin; Z86.19 Personal history of other infectious and parasitic diseases; Z88.1 Allergy status to other antibiotic agents; Z88.2 Allergy status to sulfonamides; Z88.8 Allergy status to other drugs, medicaments and biological substances; Z91.018 Allergy to other foods
CPT/HCPCS: 74177; 80048; 80076; 83690; 85025; 87505; 87631; 96361; 96374; 96375; 99284; J2270; J2405; Q9967

== ENCOUNTER → 2021-03-19 | Outpatient (CLI) | payer OTHER ==
[~2021-03-19] MED LIST changes: -CEFD1CAP8 PO; +CEFD300C41 PO; -LEVO500T3 PO; +LEVO500T4 PO
[2021-03-19 17:52] LABS: BASO % 0.7 % (0.0-1.0); EOS # 0.3 10^3/uL (0.0-0.5); EOS % 4.3 % (0.0-3.0); HEMATOCRIT 38.7 % (36.0-47.0); HEMOGLOBIN 12.2 g/dl (12.0-15.5); LYMPH # 2.5 10^3/uL (1.5-5.0); LYMPH % 41.7 % (24.0-44.0); MEAN CORPUSCULAR HEMOGLOBIN 28.3 pg (27.0-33.0); MEAN CORPUSCULAR HGB CONC 31.5 g/dl (32.0-36.5); MEAN CORPUSCULAR VOLUME 89.8 fl (80.0-96.0); MONO # 0.5 10^3/uL (0.0-0.8); MONO % 7.6 % (2.0-8.0); NEUTROPHILS # 2.8 10^3/uL (1.5-8.5); NEUTROPHILS % 45.5 % (36.0-66.0); PLATELET COUNT, AUTOMATED 269 10^3/uL (150-450); RED BLOOD COUNT 4.31 10^6/uL (4.00-5.40); WHITE BLOOD COUNT 6.1 10^3/uL (4.0-10.0)
[2021-03-19 18:31] LABS: ALBUMIN 4.2 GM/DL (3.2-5.2); ALT/SGPT 27 U/L (12-78); BILIRUBIN,TOTAL 1.5 MG/DL (0.2-1.0); BLOOD UREA NITROGEN 20 MG/DL (7-18); CALCIUM LEVEL 9.8 MG/DL (8.8-10.2); CARBON DIOXIDE LEVEL 27 MEQ/L (21-32); CHLORIDE LEVEL 102 MEQ/L (98-107); CREATININE FOR GFR 0.67 MG/DL (0.55-1.30); FERRITIN 16 NG/ML (8-252); FREE T4 1.39 NG/DL (0.76-1.46); GLOMERULAR FILTRATION RATE > 60.0 (>45); GLUCOSE, FASTING 127 MG/DL (70-100); MAGNESIUM LEVEL 1.3 MG/DL (1.8-2.4); NT-PRO BNP 95 PG/ML (<125); POTASSIUM SERUM 4.2 MEQ/L (3.5-5.1); SODIUM LEVEL 141 MEQ/L (136-145); THYROID STIMULATING HORMONE 0.223 uIU/ML (0.358-3.740); TOTAL PROTEIN 7.3 GM/DL (6.4-8.2)
== END ==
LOC: M PLALAB 13:30
PROVIDERS: ATTEND Family Medicine
DX: G89.4 Chronic pain syndrome (principal)

== ENCOUNTER → 2021-03-27 | Outpatient (CLI) | payer OTHER ==
[2021-03-27 15:26] LABS: INR 1.01; PROTHROMBIN TIME 13.7 SECONDS (12.7-14.5)
[2021-03-27 15:27] LABS: PARTIAL THROMBOPLASTIN TIME 26.4 SECONDS (25.9-37.0)
[2021-03-27 15:38] LABS: ALBUMIN 3.9 GM/DL (3.2-5.2); BILIRUBIN,DIRECT 0.3 MG/DL (0.0-0.2); BILIRUBIN,TOTAL 1.2 MG/DL (0.2-1.0); CALCIUM LEVEL 9.4 MG/DL (8.8-10.2); CREATININE FOR GFR 1.05 MG/DL (0.55-1.30); GLOMERULAR FILTRATION RATE 56.2 (>45); MAGNESIUM LEVEL 2.6 MG/DL (1.8-2.4); POTASSIUM SERUM 3.6 MEQ/L (3.5-5.1); TOTAL PROTEIN 7.5 GM/DL (6.4-8.2)
== END ==
LOC: M PLALAB 13:15
PROVIDERS: ATTEND Family Medicine
DX: Z01.818 Encounter for other preprocedural examination (principal); K76.0 Fatty (change of) liver, not elsewhere classified

== ENCOUNTER → 2021-03-30 | Outpatient (CLI) | payer OTHER | LOC: M LABSMTC 13:00 | PROVIDERS: ATTEND Anesthesiology | DX: Z01.812 Encounter for preprocedural laboratory examination (principal); Z20.822 Contact with and (suspected) exposure to COVID-19 ==

== ENCOUNTER → 2021-04-07 | Outpatient (CLI) | payer OTHER ==
[~2021-04-07] MED LIST changes: +ADV250INH INH; +MAGN240P PO; +NEUR300C PO; +NITR50CA34 PO; +POLY1POW38 PO
== END ==
LOC: M LAB 11:15
PROVIDERS: ATTEND Urology
DX: Z87.440 Personal history of urinary (tract) infections (principal); N32.81 Overactive bladder; N39.41 Urge incontinence

== ENCOUNTER → 2021-04-13 | Outpatient (CLI) | payer OTHER | LOC: M LABSMTC 09:23 | PROVIDERS: ATTEND Anesthesiology | DX: Z01.812 Encounter for preprocedural laboratory examination (principal); Z20.822 Contact with and (suspected) exposure to COVID-19 ==

== ENCOUNTER 2021-04-17 07:09 | Day surgery (SDC) | payer OTHER ==
[~2021-04-17] VITALS: Ht 167.6 cm; Wt 81.6 kg
[~2021-04-17 07:09] MED LIST changes: +LIDOCAINE 2% 100MG/5ML SDV (FOR ANES.) As Ordered ONE; +NS 1,000 ML IV ONE; +propofoL 200 MG/20 ML VIAL As Ordered ONE
[2021-04-17] MEDS ORDERED: propofoL 500 MG/50 ML VIAL As Ordered ONE (07:29)
[2021-04-17] MEDS ORDERED: GLYCOPYRROLATE INJ 0.2 MG/ML 2 ML VIAL As Ordered ONE (07:30)
[2021-04-17] MEDS ORDERED: LIDOCAINE 2% 100MG/5ML SDV (FOR ANES.) As Ordered ONE (07:30)
== END 2021-04-17 15:26 | disposition home or self-care (01) ==
LOC: M OPP 07:09
PROVIDERS: ATTEND Internal Medicine Gastroenterology
DX: D50.9 Iron deficiency anemia, unspecified (principal); Z53.8 Procedure and treatment not carried out for other reasons

== ENCOUNTER 2021-04-27 11:28 | Outpatient (CLI) | payer OTHER ==
[~2021-04-27] VITALS: Ht 167.6 cm; Wt 100.3 kg
[~2021-04-27 11:28] MED LIST changes: +ALBUTEROL SULFATE 2.5 MG/0.5 ML INH NEB SOLN INH PRN; +EPINEPHrine INJ 1 MG/ML 1ML AMP IM PRN; +IRON SUCROSE 500 MG in NS 250 ML IV ONE; +IRON SUCROSE 500 MG in NS 250 ML OVER 4 HRS IV ONE; -LIDOCAINE 2% 100MG/5ML SDV (FOR ANES.) As Ordered ONE; -NS 1,000 ML IV ONE; +NS 1,000 ML IV SCH; +diphenhydrAMINE 50MG/ML VIAL (J1200) IV PRN; +methylPREDNISolone 125MG 2ML VIAL IV PRN; -propofoL 200 MG/20 ML VIAL As Ordered ONE
[2021-04-27 11:50] VITALS: BP 156/86
[2021-04-27 13:45] VITALS: BP 116/59
[2021-04-27 14:45] VITALS: BP 127/69
[2021-04-27 16:04] VITALS: BP 132/76
== END 2021-04-27 16:10 | disposition home or self-care (01) ==
LOC: M INFU 11:28
PROVIDERS: ATTEND Family Medicine
DX: D50.9 Iron deficiency anemia, unspecified (principal); Z88.1 Allergy status to other antibiotic agents; Z88.2 Allergy status to sulfonamides; Z88.8 Allergy status to other drugs, medicaments and biological substances
CPT/HCPCS: 96365; 96366; J1756

== ENCOUNTER 2021-05-08 12:19 | Outpatient (CLI) | payer OTHER ==
[~2021-05-08] VITALS: Ht 167.6 cm; Wt 100.2 kg
[~2021-05-08 12:19] MED LIST changes: -IRON SUCROSE 500 MG in NS 250 ML OVER 4 HRS IV ONE
[2021-05-08 12:35] VITALS: BP 127/71
[2021-05-08 13:30] VITALS: BP 135/57
[2021-05-08 14:30] VITALS: BP 138/58
[2021-05-08 15:30] VITALS: BP 128/66
[2021-05-08 16:32] VITALS: BP 123/70
[2021-05-08 17:05] VITALS: BP 140/69
== END 2021-05-08 17:10 | disposition home or self-care (01) ==
LOC: M INFU 12:19
PROVIDERS: ATTEND Family Medicine
DX: D50.9 Iron deficiency anemia, unspecified (principal); Z88.1 Allergy status to other antibiotic agents; Z88.2 Allergy status to sulfonamides; Z88.8 Allergy status to other drugs, medicaments and biological substances
CPT/HCPCS: 96365; 96366; J1756

== ENCOUNTER → 2021-06-10 | Outpatient (CLI) | payer MEDICARE, OTHER ==
[~2021-06-10] MED LIST changes: -ALBUTEROL SULFATE 2.5 MG/0.5 ML INH NEB SOLN INH PRN; -EPINEPHrine INJ 1 MG/ML 1ML AMP IM PRN; -IRON SUCROSE 500 MG in NS 250 ML IV ONE; -METR-135 PO; +METR-369 PO; -NS 1,000 ML IV SCH; -diphenhydrAMINE 50MG/ML VIAL (J1200) IV PRN; -methylPREDNISolone 125MG 2ML VIAL IV PRN
== END ==
LOC: M RAD 15:57
PROVIDERS: ATTEND Nurse Practitioner Family
DX: M54.16 Radiculopathy, lumbar region (principal)

== ENCOUNTER → 2021-06-16 | Outpatient (CLI) | payer MEDICARE, OTHER ==
[~2021-06-16] MED LIST changes: +ALBU83IN INH; +DICL1GEL3 TOP; +MIRA1POW3 PO; +SENN8.6T28 PO; +SYNT50TA PO
[2021-06-16 16:15] LABS: BASO # 0.1 10^3/uL (0.0-0.2); BASO % 0.8 % (0.0-1.0); EOS # 0.4 10^3/uL (0.0-0.5); EOS % 6.8 % (0.0-3.0); HEMATOCRIT 38.2 % (36.0-47.0); HEMOGLOBIN 12.3 g/dl (12.0-15.5); LYMPH # 2.6 10^3/uL (1.5-5.0); LYMPH % 42.3 % (24.0-44.0); MEAN CORPUSCULAR HEMOGLOBIN 30.7 pg (27.0-33.0); MEAN CORPUSCULAR HGB CONC 32.2 g/dl (32.0-36.5); MEAN CORPUSCULAR VOLUME 95.3 fl (80.0-96.0); MONO # 0.4 10^3/uL (0.0-0.8); MONO % 7.1 % (2.0-8.0); NEUTROPHILS # 2.6 10^3/uL (1.5-8.5); NEUTROPHILS % 42.7 % (36.0-66.0); PLATELET COUNT, AUTOMATED 276 10^3/uL (150-450); RED BLOOD COUNT 4.01 10^6/uL (4.00-5.40); WHITE BLOOD COUNT 6.1 10^3/uL (4.0-10.0)
[2021-06-16 16:20] LABS: ALBUMIN 3.4 GM/DL (3.2-5.2); ALT/SGPT 29 U/L (12-78); BILIRUBIN,TOTAL 1.1 MG/DL (0.2-1.0); BLOOD UREA NITROGEN 11 MG/DL (7-18); CALCIUM LEVEL 8.8 MG/DL (8.8-10.2); CARBON DIOXIDE LEVEL 27 MEQ/L (21-32); CHLORIDE LEVEL 106 MEQ/L (98-107); GLOMERULAR FILTRATION RATE > 60.0 (>45); GLUCOSE, FASTING 130 MG/DL (70-100); POTASSIUM SERUM 4.4 MEQ/L (3.5-5.1); SODIUM LEVEL 140 MEQ/L (136-145); TOTAL PROTEIN 6.8 GM/DL (6.4-8.2)
== END ==
LOC: M PLALAB 13:53
PROVIDERS: ATTEND Family Medicine
DX: Z01.818 Encounter for other preprocedural examination (principal); Z79.899 Other long term (current) drug therapy

== ENCOUNTER → 2021-06-27 | Outpatient (CLI) | payer MEDICARE, OTHER ==
[~2021-06-27] MED LIST changes: -ALBU83IN INH; -DICL1GEL3 TOP; -MIRA1POW3 PO; -SENN8.6T28 PO; -SYNT50TA PO
== END ==
LOC: M LABSMTC 10:47
PROVIDERS: ATTEND Anesthesiology
DX: Z01.812 Encounter for preprocedural laboratory examination (principal); Z20.822 Contact with and (suspected) exposure to COVID-19

== ENCOUNTER 2021-07-02 08:10 | Day surgery (SDC) | payer MEDICARE, OTHER ==
[~2021-07-02] VITALS: Ht 165.1 cm; Wt 88.9 kg
[~2021-07-02 08:10] MED LIST changes: +LIDOCAINE 2% 100MG/5ML SDV (FOR ANES.) As Ordered ONE; +NS 1,000 ML IV ONE; +propofoL 500 MG/50 ML VIAL As Ordered ONE
[2021-07-02] MEDS ORDERED: fentaNYL 100 MCG/2 ML INJECTION As Ordered ONE (09:32)
[2021-07-02 10:03] VITALS: BP 103/68
== END 2021-07-02 10:40 | disposition home or self-care (01) ==
LOC: M OPP 08:10
PROVIDERS: ATTEND Internal Medicine Gastroenterology
DX: D50.9 Iron deficiency anemia, unspecified (principal); Z86.010 Personal history of colon polyps; Z80.0 Family history of malignant neoplasm of digestive organs; R12 Heartburn; I50.9 Heart failure, unspecified; G47.30 Sleep apnea, unspecified; M79.9 Soft tissue disorder, unspecified; E11.9 Type 2 diabetes mellitus without complications; Z79.51 Long term (current) use of inhaled steroids; Z79.02 Long term (current) use of antithrombotics/antiplatelets; Z79.84 Long term (current) use of oral hypoglycemic drugs; Z79.890 Hormone replacement therapy; Z79.899 Other long term (current) drug therapy; Z88.2 Allergy status to sulfonamides
CPT/HCPCS: 43239; 45378; 88305; J3010

== ENCOUNTER 2021-07-27 11:48 | Observation (INO) | payer MEDICARE, OTHER ==
[~2021-07-27] VITALS: Ht 167.6 cm; Wt 88.2 kg
[~2021-07-27 11:48] MED LIST changes: -LIDOCAINE 2% 100MG/5ML SDV (FOR ANES.) As Ordered ONE; -NS 1,000 ML IV ONE; -propofoL 500 MG/50 ML VIAL As Ordered ONE
[2021-07-27] MEDS ORDERED: INSULIN LISPRO (NovoLOG) PER UNIT SC SCH (18:00)
[2021-07-27] MEDS ORDERED: POLYETHYLENE GLYCOL (MIRALAX) 238GM BOTTLE PO ONE (18:20)
[2021-07-27] MEDS ORDERED: DEXTROSE 50% 50 ML SYRINGE IV PRN (18:30)
[2021-07-27] MEDS ORDERED: GLUCAGON INJ 1MG VIAL SC PRN (18:30)
[2021-07-27] MEDS ORDERED: GLUCOSE 4GM CHEW TABLET PO PRN (18:30)
[2021-07-27 19:17] VITALS: BP 123/76
[2021-07-27] MEDS ORDERED: MORPHINE 2 MG/ML 1ML VIAL IV PRN (19:20)
[2021-07-27] MEDS ORDERED: ONDANSETRON 4MG/2ML VIAL IV PRN (19:20)
[2021-07-27 19:42] LABS: BASO # 0.1 10^3/uL (0.0-0.2); BASO % 0.7 % (0.0-1.0); EOS # 0.2 10^3/uL (0.0-0.5); EOS % 2.6 % (0.0-3.0); HEMATOCRIT 38.7 % (36.0-47.0); LYMPH # 3.1 10^3/uL (1.5-5.0); LYMPH % 34.9 % (24.0-44.0); MEAN CORPUSCULAR HEMOGLOBIN 30.6 pg (27.0-33.0); MEAN CORPUSCULAR HGB CONC 33.6 g/dl (32.0-36.5); MEAN CORPUSCULAR VOLUME 91.1 fl (80.0-96.0); MONO # 0.6 10^3/uL (0.0-0.8); MONO % 6.5 % (2.0-8.0); NEUTROPHILS # 4.9 10^3/uL (1.5-8.5); PLATELET COUNT, AUTOMATED 252 10^3/uL (150-450); RED BLOOD COUNT 4.25 10^6/uL (4.00-5.40); WHITE BLOOD COUNT 8.9 10^3/uL (4.0-10.0)
[2021-07-27 20:00] LABS: BLOOD UREA NITROGEN 15 MG/DL (7-18); CALCIUM LEVEL 9.5 MG/DL (8.8-10.2); CARBON DIOXIDE LEVEL 29 MEQ/L (21-32); CHLORIDE LEVEL 99 MEQ/L (98-107); CREATININE FOR GFR 0.68 MG/DL (0.55-1.30); GLOMERULAR FILTRATION RATE > 60.0 (>45); GLUCOSE, FASTING 121 MG/DL (70-100); POTASSIUM SERUM 3.6 MEQ/L (3.5-5.1); SODIUM LEVEL 137 MEQ/L (136-145)
[2021-07-27 20:13] VITALS: BP 134/75
[2021-07-27] MEDS ORDERED: diphenhydrAMINE 50MG CAP PO STA (20:15)
[2021-07-27] MEDS ORDERED: FAMOTIDINE 20MG/2ML VIAL IVP ONE (20:15)
[2021-07-27] MEDS ORDERED: BACLOFEN 10 MG TAB PO ONE (20:45)
[2021-07-27 21:07] LABS: MAGNESIUM LEVEL 2.6 MG/DL (1.8-2.4)
[2021-07-28] MEDS: INSULIN LISPRO (NovoLOG) PER UNIT SC SCH ×3 (01:45→12:00)
[2021-07-28] MEDS ORDERED: ALBU83IN INH (02:40)
[2021-07-28] MEDS ORDERED: MIRA1POW3 PO (02:40)
[2021-07-28] MEDS ORDERED: SENN8.6T28 PO (02:40)
[2021-07-28] MEDS ORDERED: CYCL5TAB PO (02:40)
[2021-07-28] MEDS ORDERED: SYNT50TA PO (02:40)
[2021-07-28] MEDS ORDERED: GABA-283 PO (02:40)
[2021-07-28] MEDS ORDERED: BACL10TA2 PO (02:40)
[2021-07-28] MEDS ORDERED: DICL1GEL3 TOP (02:40)
[2021-07-28] MEDS ORDERED: HOME MED LIST COMPLETE! XX SCH (02:45)
[2021-07-28] MEDS ORDERED: ALBUTEROL 90 MCG/ACT 8GM HFA INHALER INH PRN (04:45)
[2021-07-28] MEDS ORDERED: POLYETHYLENE GLYCOL (MIRALAX) 238GM BOTTLE PO ONE (05:00)
[2021-07-28 05:14] VITALS: BP 112/75
[2021-07-28] MEDS ORDERED: LEVOTHYROXINE 50MCG TABLET (0.05MG) PO SCH (06:00)
[2021-07-28 06:28] LABS: BASO # 0.1 10^3/uL (0.0-0.2); BASO % 0.9 % (0.0-1.0); EOS # 0.3 10^3/uL (0.0-0.5); EOS % 4.9 % (0.0-3.0); HEMOGLOBIN 13.5 g/dl (12.0-15.5); LYMPH # 3.1 10^3/uL (1.5-5.0); LYMPH % 47.6 % (24.0-44.0); MEAN CORPUSCULAR HEMOGLOBIN 30.7 pg (27.0-33.0); MEAN CORPUSCULAR HGB CONC 32.9 g/dl (32.0-36.5); MEAN CORPUSCULAR VOLUME 93.2 fl (80.0-96.0); MONO # 0.4 10^3/uL (0.0-0.8); MONO % 6.4 % (2.0-8.0); NEUTROPHILS # 2.6 10^3/uL (1.5-8.5); NEUTROPHILS % 39.9 % (36.0-66.0); PLATELET COUNT, AUTOMATED 260 10^3/uL (150-450); WHITE BLOOD COUNT 6.6 10^3/uL (4.0-10.0)
[2021-07-28 06:51] LABS: BLOOD UREA NITROGEN 11 MG/DL (7-18); CALCIUM LEVEL 9.6 MG/DL (8.8-10.2); CARBON DIOXIDE LEVEL 30 MEQ/L (21-32); CHLORIDE LEVEL 100 MEQ/L (98-107); CREATININE FOR GFR 0.63 MG/DL (0.55-1.30); GLOMERULAR FILTRATION RATE > 60.0 (>45); GLUCOSE, FASTING 125 MG/DL (70-100); MAGNESIUM LEVEL 2.4 MG/DL (1.8-2.4); POTASSIUM SERUM 3.7 MEQ/L (3.5-5.1); SODIUM LEVEL 137 MEQ/L (136-145)
[2021-07-28] MEDS ORDERED: MAGNESIUM CITRATE 300 ML BTL PO ONE (07:40)
[2021-07-28] MEDS: BACLOFEN 10 MG TAB PO SCH ×2 (08:00→15:04)
[2021-07-28] MEDS: DULoxetine 30MG CAPSULE (CYMBALTA) PO SCH ×2 (08:00→15:05)
[2021-07-28] MEDS ORDERED: ADVAIR HFA 115/21MCG INHALER INH SCH (08:00)
[2021-07-28] MEDS: GABAPENTIN 400MG CAP PO SCH ×2 (08:04→15:05)
[2021-07-28] MEDS: PANTOPRAZOLE 40MG TAB (PROTONIX) PO SCH ×2 (08:04→15:04)
[2021-07-28] MEDS: POTASSIUM CHLORIDE 10MEQ SR TABLET PO SCH ×2 (08:04→15:04)
[2021-07-28] MEDS: ROSUVASTATIN 10 MG TAB (CRESTOR) PO SCH ×2 (08:04→15:05)
[2021-07-28] MEDS ORDERED: MAGNESIUM OXIDE 400MG TAB (MAG-OX) PO SCH (09:00)
[2021-07-28] MEDS ORDERED: NYSTATIN 100,000 UNITS/GM TOPICAL PWD 15 GM TOP SCH (09:00)
[2021-07-28] MEDS ORDERED: ESCITALOPRAM OXALATE 10 MG TAB (LEXAPRO) PO SCH (12:00)
[2021-07-28] MEDS ORDERED: INDAPAMIDE 1.25MG TABLET PO SCH (12:00)
[2021-07-28] MEDS ORDERED: FOLIC ACID 1 MG TAB PO SCH (12:00)
[2021-07-28] MEDS ORDERED: propofoL 200 MG/20 ML VIAL As Ordered ONE (14:03)
[2021-07-28] MEDS ORDERED: LIDOCAINE 2% 100MG/5ML SDV (FOR ANES.) As Ordered ONE (14:03)
[2021-07-28 14:50] VITALS: BP 119/85
[2021-07-28 15:20] VITALS: BP 119/83
[2021-07-28 16:20] VITALS: BP 110/69
[2021-07-28 17:20] VITALS: BP 135/86
[2021-07-28] MEDS ORDERED: BACLOFEN 10 MG TAB PO SCH (21:00)
[2021-07-28] MEDS ORDERED: RAMELTEON 8 MG TAB (ROZEREM) PO SCH (21:00)
[2021-07-28] MEDS ORDERED: AMITRIPTYLINE 25MG TABLET PO SCH (21:00)
== END 2021-07-28 18:13 | disposition home or self-care (01) ==
LOC: M MSPAV 11:48
PROVIDERS: ADMIT Internal Medicine; ATTEND General Practice
DX: D12.5 Benign neoplasm of sigmoid colon (principal); D12.2 Benign neoplasm of ascending colon; K57.30 Diverticulosis of large intestine without perforation or abscess without bleeding; K64.8 Other hemorrhoids; D50.9 Iron deficiency anemia, unspecified; Z86.010 Personal history of colon polyps; I80.8 Phlebitis and thrombophlebitis of other sites; Z86.19 Personal history of other infectious and parasitic diseases; J45.909 Unspecified asthma, uncomplicated; E11.9 Type 2 diabetes mellitus without complications; I11.0 Hypertensive heart disease with heart failure; E03.9 Hypothyroidism, unspecified; M19.90 Unspecified osteoarthritis, unspecified site; M54.9 Dorsalgia, unspecified; G89.29 Other chronic pain; I50.30 Unspecified diastolic (congestive) heart failure; Z87.440 Personal history of urinary (tract) infections; Z86.14 Personal history of Methicillin resistant Staphylococcus aureus infection; Z86.711 Personal history of pulmonary embolism; Z79.899 Other long term (current) drug therapy; Z79.890 Hormone replacement therapy; Z79.84 Long term (current) use of oral hypoglycemic drugs; Z79.51 Long term (current) use of inhaled steroids; Z88.1 Allergy status to other antibiotic agents; Z88.2 Allergy status to sulfonamides; Z88.8 Allergy status to other drugs, medicaments and biological substances
CPT/HCPCS: 36415; 45385; 80048; 83735; 85025; 87426; 88305; 94640; 96374; 96375; G0378; J2270

== ENCOUNTER 2021-11-03 00:58 | Inpatient (IN) | payer MEDICARE, OTHER ==
[~2021-11-03] VITALS: Ht 166.4 cm; Wt 90.1 kg
[~2021-11-03 00:58] MED LIST changes: +ALBU2.5V10 INH; +ALBU2.5V10 NEB; -ALBU83IN NEB; +DICL1GEL3 TOP; +LEVO1TAB39 PO; -LEVO500T4 PO; +MIRA1POW3 PO; +SENN8.6T28 PO; +SYNT50TA PO
[2021-11-03] MEDS ORDERED: MORPHINE 4 MG/ML 1ML VIAL/SYRINGE IV ONE ×2 (01:35→04:05)
[2021-11-03 02:03] LABS: BASO % 0.6 % (0.0-1.0); EOS # 0.2 10^3/uL (0.0-0.5); EOS % 2.9 % (0.0-3.0); HEMATOCRIT 38.1 % (36.0-47.0); LYMPH # 2.4 10^3/uL (1.5-5.0); LYMPH % 34.8 % (24.0-44.0); MEAN CORPUSCULAR HEMOGLOBIN 30.9 pg (27.0-33.0); MEAN CORPUSCULAR HGB CONC 34.1 g/dl (32.0-36.5); MEAN CORPUSCULAR VOLUME 90.5 fl (80.0-96.0); MONO # 0.5 10^3/uL (0.0-0.8); MONO % 7.4 % (2.0-8.0); NEUTROPHILS # 3.7 10^3/uL (1.5-8.5); NEUTROPHILS % 54.2 % (36.0-66.0); PLATELET COUNT, AUTOMATED 243 10^3/uL (150-450); RED BLOOD COUNT 4.21 10^6/uL (4.00-5.40); WHITE BLOOD COUNT 6.9 10^3/uL (4.0-10.0)
[2021-11-03 02:38] LABS: BLOOD UREA NITROGEN 18 MG/DL (7-18); CALCIUM LEVEL 9.6 MG/DL (8.8-10.2); CARBON DIOXIDE LEVEL 25 MEQ/L (21-32); CHLORIDE LEVEL 105 MEQ/L (98-107); CREATININE FOR GFR 0.71 MG/DL (0.55-1.30); GLOMERULAR FILTRATION RATE > 60.0 (>45); GLUCOSE, FASTING 173 MG/DL (70-100); MAGNESIUM LEVEL 1.4 MG/DL (1.8-2.4); POTASSIUM SERUM 3.1 MEQ/L (3.5-5.1); SODIUM LEVEL 139 MEQ/L (136-145)
[2021-11-03 02:43] LABS: RSV AMPLIFICATION NEGATIVE (NEGATIVE)
[2021-11-03] MEDS ORDERED: POTASSIUM CHLORIDE 10MEQ SR TABLET PO ONE ×2 (03:00→10:35)
[2021-11-03] MEDS ORDERED: MAG SULF 1GM/100ML (MAG RUN) 1 GM in IV 1 EA IV ONE ×4 (03:00)
[2021-11-03] MEDS ORDERED: TAMS1CAP17 PO (05:03)
[2021-11-03] MEDS ORDERED: HOME MED LIST COMPLETE! XX SCH (05:05)
[2021-11-03] MEDS ORDERED: ACETAMINOPHEN TAB 650MG DOSE (2X325MG) PO PRN (05:10)
[2021-11-03] MEDS ORDERED: ALBUTEROL SULFATE 2.5 MG/0.5 ML INH NEB SOLN INH PRN (05:10)
[2021-11-03] MEDS ORDERED: LIDOCAINE 5% (LIDODERM) PATCH TD PRN (05:20)
[2021-11-03] MEDS ORDERED: GLUCAGON INJ 1MG VIAL SC PRN (05:30)
[2021-11-03] MEDS ORDERED: GLUCOSE 4GM CHEW TABLET PO PRN (05:30)
[2021-11-03] MEDS ORDERED: DEXTROSE 50% 50 ML SYRINGE IV PRN (05:30)
[2021-11-03] MEDS: LEVOTHYROXINE 50MCG TABLET (0.05MG) PO SCH (05:43)
[2021-11-03 05:52] LABS: HEMATOCRIT 35.6 % (36.0-47.0); HEMOGLOBIN 12.3 g/dl (12.0-15.5); MEAN CORPUSCULAR HEMOGLOBIN 31.5 pg (27.0-33.0); MEAN CORPUSCULAR HGB CONC 34.6 g/dl (32.0-36.5); PLATELET COUNT, AUTOMATED 223 10^3/uL (150-450); RED BLOOD COUNT 3.91 10^6/uL (4.00-5.40); WHITE BLOOD COUNT 7.9 10^3/uL (4.0-10.0)
[2021-11-03 06:05] LABS: INR 0.99; PROTHROMBIN TIME 13.4 SECONDS (12.7-14.5)
[2021-11-03 06:06] LABS: PARTIAL THROMBOPLASTIN TIME 28.9 SECONDS (25.9-37.0)
[2021-11-03 06:53] LABS: BLOOD UREA NITROGEN 16 MG/DL (7-18); CALCIUM LEVEL 9.6 MG/DL (8.8-10.2); CARBON DIOXIDE LEVEL 24 MEQ/L (21-32); CHLORIDE LEVEL 105 MEQ/L (98-107); CREATININE FOR GFR 0.65 MG/DL (0.55-1.30); GLOMERULAR FILTRATION RATE > 60.0 (>45); GLUCOSE, FASTING 139 MG/DL (70-100); MAGNESIUM LEVEL 2.2 MG/DL (1.8-2.4); POTASSIUM SERUM 3.2 MEQ/L (3.5-5.1); SODIUM LEVEL 136 MEQ/L (136-145)
[2021-11-03] MEDS ORDERED: BACLOFEN 10 MG TAB PO SCH (08:00)
[2021-11-03] MEDS: INSULIN LISPRO (NovoLOG) PER UNIT SC SCH ×4 (08:21→21:00)
[2021-11-03] MEDS: GABAPENTIN 400MG CAP PO SCH ×3 (08:22→20:33)
[2021-11-03] MEDS: ESCITALOPRAM OXALATE 10 MG TAB (LEXAPRO) PO SCH (08:23)
[2021-11-03] MEDS: ROSUVASTATIN 10 MG TAB (CRESTOR) PO SCH (08:23)
[2021-11-03] MEDS: MAGNESIUM OXIDE 400MG TAB (MAG-OX) PO SCH ×2 (08:23→20:33)
[2021-11-03] MEDS: DOCUSATE SODIUM 100MG CAPSULE PO SCH ×2 (08:24→20:33)
[2021-11-03] MEDS: DULoxetine 30MG CAPSULE (CYMBALTA) PO SCH ×2 (08:24→13:41)
[2021-11-03] MEDS: ADVAIR HFA 115/21MCG INHALER INH SCH ×2 (08:29→21:04)
[2021-11-03] MEDS ORDERED: POTASSIUM CHLORIDE 10MEQ SR TABLET PO SCH (09:00)
[2021-11-03] MEDS ORDERED: ENOXAPARIN 40MG/0.4ML SYRINGE (J1650 PER 10MG) SC SCH (09:00)
[2021-11-03] MEDS ORDERED: KCL 10MEQ/100ML SWI (KRUN) 10 MEQ in IV 1 EA IV SCH (09:00)
[2021-11-03] MEDS: PERCOCET 5MG/325MG TAB PO PRN ×2 (09:38→17:21)
[2021-11-03] MEDS: PANTOPRAZOLE 20 MG TAB PO SCH (10:45)
[2021-11-03] MEDS ORDERED: INDAPAMIDE 1.25MG TABLET PO SCH (12:00)
[2021-11-03 13:30] VITALS: BP 109/72
[2021-11-03] MEDS: LR 1,000 ML IV SCH (18:56)
[2021-11-03] MEDS: RAMELTEON 8 MG TAB (ROZEREM) PO SCH (20:32)
[2021-11-03] MEDS: BACLOFEN 10 MG TAB PO SCH (20:32)
[2021-11-03] MEDS: SENNA 8.6 MG TAB (SENOKOT) PO SCH (20:33)
[2021-11-03] MEDS: TAMSULOSIN 0.4 MG CAP PO SCH (20:33)
[2021-11-03] MEDS: AMITRIPTYLINE 25MG TABLET PO SCH (20:33)
[2021-11-03] MEDS: **NOTE PATIENT COMMENT** MISC XX SCH (21:00)
[2021-11-03 22:00] VITALS: BP 103/67
[2021-11-04 05:15] VITALS: BP 106/65
[2021-11-04] MEDS: LR 1,000 ML IV SCH ×2 (05:25→14:01)
[2021-11-04] MEDS: LEVOTHYROXINE 50MCG TABLET (0.05MG) PO SCH (05:31)
[2021-11-04] MEDS: PERCOCET 5MG/325MG TAB PO PRN ×2 (05:32→12:34)
[2021-11-04 06:01] LABS: HEMATOCRIT 35.9 % (36.0-47.0); HEMOGLOBIN 11.6 g/dl (12.0-15.5); MEAN CORPUSCULAR HEMOGLOBIN 31.5 pg (27.0-33.0); MEAN CORPUSCULAR HGB CONC 32.3 g/dl (32.0-36.5); MEAN CORPUSCULAR VOLUME 97.6 fl (80.0-96.0); PLATELET COUNT, AUTOMATED 157 10^3/uL (150-450); RED BLOOD COUNT 3.68 10^6/uL (4.00-5.40); WHITE BLOOD COUNT 5.4 10^3/uL (4.0-10.0)
[2021-11-04 06:55] LABS: BLOOD UREA NITROGEN 13 MG/DL (7-18); CALCIUM LEVEL 9.7 MG/DL (8.8-10.2); CARBON DIOXIDE LEVEL 26 MEQ/L (21-32); CHLORIDE LEVEL 105 MEQ/L (98-107); CREATININE FOR GFR 0.51 MG/DL (0.55-1.30); GLOMERULAR FILTRATION RATE > 60.0 (>45); GLUCOSE, FASTING 189 MG/DL (70-100); MAGNESIUM LEVEL 1.5 MG/DL (1.8-2.4); POTASSIUM SERUM 4.2 MEQ/L (3.5-5.1); SODIUM LEVEL 138 MEQ/L (136-145)
[2021-11-04] MEDS: ADVAIR HFA 115/21MCG INHALER INH SCH ×2 (07:51→19:40)
[2021-11-04] MEDS: INSULIN LISPRO (NovoLOG) PER UNIT SC SCH ×4 (09:24→20:56)
[2021-11-04] MEDS: MAG SULF 1GM/100ML (MAG RUN) 1 GM in IV 1 EA IV SCH ×4 (09:24→14:00)
[2021-11-04] MEDS: ROSUVASTATIN 10 MG TAB (CRESTOR) PO SCH (09:25)
[2021-11-04] MEDS: ENOXAPARIN 40MG/0.4ML SYRINGE (J1650 PER 10MG) SC SCH (09:25)
[2021-11-04] MEDS: DOCUSATE SODIUM 100MG CAPSULE PO SCH ×2 (09:25→21:04)
[2021-11-04] MEDS: MAGNESIUM OXIDE 400MG TAB (MAG-OX) PO SCH (09:25)
[2021-11-04] MEDS: DULoxetine 30MG CAPSULE (CYMBALTA) PO SCH ×2 (09:25→12:38)
[2021-11-04] MEDS: ESCITALOPRAM OXALATE 10 MG TAB (LEXAPRO) PO SCH (09:26)
[2021-11-04] MEDS: GABAPENTIN 400MG CAP PO SCH ×2 (09:26→17:41)
[2021-11-04] MEDS: PANTOPRAZOLE 20 MG TAB PO SCH (10:00)
[2021-11-04] MEDS ORDERED: GABA600T4 PO (10:17)
[2021-11-04] MEDS ORDERED: POTA10CA32 PO (11:23)
[2021-11-04 14:00] VITALS: BP 101/60
[2021-11-04 20:23] VITALS: BP 141/83
[2021-11-04] MEDS ORDERED: PERCOCET 5MG/325MG TAB PO PRN ×2 (20:45)
[2021-11-04] MEDS: **NOTE PATIENT COMMENT** MISC XX SCH (21:00)
[2021-11-04] MEDS ORDERED: GABAPENTIN 400MG CAP PO SCH (21:00)
[2021-11-04] MEDS: RAMELTEON 8 MG TAB (ROZEREM) PO SCH (21:04)
[2021-11-04] MEDS: TAMSULOSIN 0.4 MG CAP PO SCH (21:04)
[2021-11-04] MEDS: BACLOFEN 10 MG TAB PO SCH (21:04)
[2021-11-04] MEDS: SENNA 8.6 MG TAB (SENOKOT) PO SCH (21:04)
[2021-11-04] MEDS: AMITRIPTYLINE 25MG TABLET PO SCH (21:04)
[2021-11-04] MEDS: GABAPENTIN 300 MG CAP PO SCH (21:05)
[2021-11-05] MEDS: LR 1,000 ML IV SCH ×2 (01:39→11:04)
[2021-11-05] MEDS: LEVOTHYROXINE 50MCG TABLET (0.05MG) PO SCH (05:54)
[2021-11-05 06:00] VITALS: BP 104/64
[2021-11-05 07:20] LABS: HEMATOCRIT 34.5 % (36.0-47.0); HEMOGLOBIN 11.4 g/dl (12.0-15.5); MEAN CORPUSCULAR HEMOGLOBIN 31.6 pg (27.0-33.0); MEAN CORPUSCULAR VOLUME 95.6 fl (80.0-96.0); PLATELET COUNT, AUTOMATED 204 10^3/uL (150-450); RED BLOOD COUNT 3.61 10^6/uL (4.00-5.40); WHITE BLOOD COUNT 5.3 10^3/uL (4.0-10.0)
[2021-11-05] MEDS: ADVAIR HFA 115/21MCG INHALER INH SCH ×2 (07:57→19:32)
[2021-11-05 07:58] LABS: BLOOD UREA NITROGEN 8 MG/DL (7-18); CALCIUM LEVEL 9.3 MG/DL (8.8-10.2); CARBON DIOXIDE LEVEL 29 MEQ/L (21-32); CHLORIDE LEVEL 105 MEQ/L (98-107); CREATININE FOR GFR 0.48 MG/DL (0.55-1.30); GLOMERULAR FILTRATION RATE > 60.0 (>45); GLUCOSE, FASTING 145 MG/DL (70-100); MAGNESIUM LEVEL 1.6 MG/DL (1.8-2.4); POTASSIUM SERUM 3.4 MEQ/L (3.5-5.1); SODIUM LEVEL 140 MEQ/L (136-145)
[2021-11-05] MEDS: INSULIN LISPRO (NovoLOG) PER UNIT SC SCH ×4 (08:45→21:00)
[2021-11-05] MEDS: ESCITALOPRAM OXALATE 10 MG TAB (LEXAPRO) PO SCH (08:46)
[2021-11-05] MEDS: MIRALAX *UNIT DOSE* 17GM PACKET PO SCH (08:46)
[2021-11-05] MEDS: DULoxetine 30MG CAPSULE (CYMBALTA) PO SCH ×2 (08:46→12:11)
[2021-11-05] MEDS: DOCUSATE SODIUM 100MG CAPSULE PO SCH ×2 (08:46→21:25)
[2021-11-05] MEDS: PANTOPRAZOLE 20 MG TAB PO SCH (08:46)
[2021-11-05] MEDS: ROSUVASTATIN 10 MG TAB (CRESTOR) PO SCH (08:46)
[2021-11-05] MEDS: GABAPENTIN 300 MG CAP PO SCH ×3 (08:46→21:25)
[2021-11-05] MEDS: ENOXAPARIN 40MG/0.4ML SYRINGE (J1650 PER 10MG) SC SCH (08:47)
[2021-11-05] MEDS: MAGNESIUM OXIDE 400MG TAB (MAG-OX) PO SCH ×2 (09:00→11:58)
[2021-11-05 09:30] VITALS: BP 104/64
[2021-11-05] MEDS ORDERED: POTASSIUM CHLORIDE 10MEQ SR TABLET PO ONE (11:15)
[2021-11-05] MEDS ORDERED: IBUPROFEN 400MG TAB PO PRN (11:25)
[2021-11-05] MEDS ORDERED: LIDOCAINE 5% (LIDODERM) PATCH TD PRN (11:35)
[2021-11-05 14:00] VITALS: BP 96/78
[2021-11-05 15:08] VITALS: BP 96/70
[2021-11-05 19:40] VITALS: BP 98/67
[2021-11-05 21:00] VITALS: BP 94/65
[2021-11-05] MEDS: **NOTE PATIENT COMMENT** MISC XX SCH (21:00)
[2021-11-05] MEDS: SENNA 8.6 MG TAB (SENOKOT) PO SCH (21:24)
[2021-11-05] MEDS: AMITRIPTYLINE 25MG TABLET PO SCH (21:25)
[2021-11-05] MEDS: RAMELTEON 8 MG TAB (ROZEREM) PO SCH (21:25)
[2021-11-05] MEDS: TAMSULOSIN 0.4 MG CAP PO SCH (21:25)
[2021-11-05] MEDS: BACLOFEN 10 MG TAB PO SCH (21:25)
[2021-11-06 05:44] VITALS: BP 109/68
[2021-11-06] MEDS: LEVOTHYROXINE 50MCG TABLET (0.05MG) PO SCH (05:48)
[2021-11-06 06:30] LABS: HEMATOCRIT 33.9 % (36.0-47.0); HEMOGLOBIN 11.3 g/dl (12.0-15.5); MEAN CORPUSCULAR HEMOGLOBIN 31.5 pg (27.0-33.0); MEAN CORPUSCULAR HGB CONC 33.3 g/dl (32.0-36.5); MEAN CORPUSCULAR VOLUME 94.4 fl (80.0-96.0); PLATELET COUNT, AUTOMATED 207 10^3/uL (150-450); RED BLOOD COUNT 3.59 10^6/uL (4.00-5.40); WHITE BLOOD COUNT 5.5 10^3/uL (4.0-10.0)
[2021-11-06 07:12] LABS: BLOOD UREA NITROGEN 9 MG/DL (7-18); CALCIUM LEVEL 9.1 MG/DL (8.8-10.2); CARBON DIOXIDE LEVEL 26 MEQ/L (21-32); CHLORIDE LEVEL 108 MEQ/L (98-107); CREATININE FOR GFR 0.52 MG/DL (0.55-1.30); GLOMERULAR FILTRATION RATE > 60.0 (>45); GLUCOSE, FASTING 162 MG/DL (70-100); MAGNESIUM LEVEL 1.7 MG/DL (1.8-2.4); SODIUM LEVEL 141 MEQ/L (136-145)
[2021-11-06] MEDS: ADVAIR HFA 115/21MCG INHALER INH SCH ×2 (07:37→21:00)
[2021-11-06] MEDS: ROSUVASTATIN 10 MG TAB (CRESTOR) PO SCH (08:09)
[2021-11-06] MEDS: ENOXAPARIN 40MG/0.4ML SYRINGE (J1650 PER 10MG) SC SCH (08:09)
[2021-11-06] MEDS: DOCUSATE SODIUM 100MG CAPSULE PO SCH ×2 (08:09→20:40)
[2021-11-06] MEDS: MIRALAX *UNIT DOSE* 17GM PACKET PO SCH (08:09)
[2021-11-06] MEDS: ESCITALOPRAM OXALATE 10 MG TAB (LEXAPRO) PO SCH (08:10)
[2021-11-06] MEDS: MAGNESIUM OXIDE 400MG TAB (MAG-OX) PO SCH (08:10)
[2021-11-06] MEDS: PANTOPRAZOLE 20 MG TAB PO SCH (08:10)
[2021-11-06] MEDS: GABAPENTIN 300 MG CAP PO SCH ×3 (08:10→20:40)
[2021-11-06] MEDS: DULoxetine 30MG CAPSULE (CYMBALTA) PO SCH ×2 (08:10→12:34)
[2021-11-06] MEDS: INSULIN LISPRO (NovoLOG) PER UNIT SC SCH ×4 (08:11→21:05)
[2021-11-06] MEDS: SENNA 8.6 MG TAB (SENOKOT) PO SCH (20:40)
[2021-11-06] MEDS: AMITRIPTYLINE 25MG TABLET PO SCH (20:40)
[2021-11-06] MEDS: RAMELTEON 8 MG TAB (ROZEREM) PO SCH (20:40)
[2021-11-06] MEDS: BACLOFEN 10 MG TAB PO SCH (20:40)
[2021-11-06] MEDS: TAMSULOSIN 0.4 MG CAP PO SCH (20:40)
[2021-11-06] MEDS: **NOTE PATIENT COMMENT** MISC XX SCH (21:00)
[2021-11-07] MEDS: LEVOTHYROXINE 50MCG TABLET (0.05MG) PO SCH (05:37)
[2021-11-07 06:00] VITALS: BP 110/69
[2021-11-07] MEDS: ADVAIR HFA 115/21MCG INHALER INH SCH (07:59)
[2021-11-07] MEDS: ENOXAPARIN 40MG/0.4ML SYRINGE (J1650 PER 10MG) SC SCH (08:34)
[2021-11-07] MEDS: MIRALAX *UNIT DOSE* 17GM PACKET PO SCH (08:34)
[2021-11-07] MEDS: DOCUSATE SODIUM 100MG CAPSULE PO SCH (08:35)
[2021-11-07] MEDS: DULoxetine 30MG CAPSULE (CYMBALTA) PO SCH ×2 (08:35→12:08)
[2021-11-07] MEDS: MAGNESIUM OXIDE 400MG TAB (MAG-OX) PO SCH (08:35)
[2021-11-07] MEDS: GABAPENTIN 300 MG CAP PO SCH (08:35)
[2021-11-07] MEDS: ESCITALOPRAM OXALATE 10 MG TAB (LEXAPRO) PO SCH (08:35)
[2021-11-07] MEDS: INSULIN LISPRO (NovoLOG) PER UNIT SC SCH (08:35)
[2021-11-07] MEDS: PANTOPRAZOLE 20 MG TAB PO SCH (08:35)
[2021-11-07] MEDS: ROSUVASTATIN 10 MG TAB (CRESTOR) PO SCH (08:36)
[2021-11-07] MEDS ORDERED: MAGN400T2 PO (11:31)
[2021-11-07] MEDS ORDERED: LIDO5TD TD (11:31)
== END 2021-11-07 12:30 | disposition home or self-care (01) | DRG 312 ==
LOC: EDBD 00:58 → M ED 00:58 → M ED INP 00:59 → ENRESERV 12:03 → M MSPAV 13:17 → OBSVTOIN 11-04 16:04
PROVIDERS: ADMIT Family Medicine; ATTEND Internal Medicine
DX: I95.1 Orthostatic hypotension (principal); I50.32 Chronic diastolic (congestive) heart failure; J45.20 Mild intermittent asthma, uncomplicated; E11.9 Type 2 diabetes mellitus without complications; E03.9 Hypothyroidism, unspecified; E78.5 Hyperlipidemia, unspecified; K75.81 Nonalcoholic steatohepatitis (NASH); F32.A Depression, unspecified; F41.9 Anxiety disorder, unspecified; K21.9 Gastro-esophageal reflux disease without esophagitis; M94.0 Chondrocostal junction syndrome [Tietze]; G25.0 Essential tremor; M19.90 Unspecified osteoarthritis, unspecified site; M17.0 Bilateral primary osteoarthritis of knee; I11.0 Hypertensive heart disease with heart failure; M47.9 Spondylosis, unspecified; M54.9 Dorsalgia, unspecified; M25.561 Pain in right knee; E87.6 Hypokalemia; E83.42 Hypomagnesemia; E86.0 Dehydration; Z79.890 Hormone replacement therapy; Z79.899 Other long term (current) drug therapy; Z79.84 Long term (current) use of oral hypoglycemic drugs; Z88.2 Allergy status to sulfonamides; Z90.49 Acquired absence of other specified parts of digestive tract; Z88.8 Allergy status to other drugs, medicaments and biological substances; Z91.018 Allergy to other foods

== ENCOUNTER 2021-12-18 18:31 | Emergency (ER) | payer OTHER, MEDICARE ==
[~2021-12-18] VITALS: Ht 167.6 cm; Wt 85.0 kg
[~2021-12-18 18:31] MED LIST changes: +ALBU6.7H6 INH; +ALEN70TA87 PO; -FOSA70TA PO; +GABA600T4 PO; +LIDO5TD TD; +POTA10CA32 PO; -PROV108A INH; +TAMS1CAP17 PO
[2021-12-18] MEDS ORDERED: NS 500 ML IV ONE (20:40)
[2021-12-18 20:56] LABS: BASO # 0.1 10^3/uL (0.0-0.2); BASO % 0.9 % (0.0-1.0); EOS # 0.3 10^3/uL (0.0-0.5); EOS % 3.8 % (0.0-3.0); HEMATOCRIT 43.5 % (36.0-47.0); HEMOGLOBIN 13.9 g/dl (12.0-15.5); LYMPH % 44.3 % (24.0-44.0); MEAN CORPUSCULAR VOLUME 96.9 fl (80.0-96.0); MONO # 0.4 10^3/uL (0.0-0.8); NEUTROPHILS % 44.7 % (36.0-66.0); PLATELET COUNT, AUTOMATED 312 10^3/uL (150-450); RED BLOOD COUNT 4.49 10^6/uL (4.00-5.40); WHITE BLOOD COUNT 6.8 10^3/uL (4.0-10.0)
[2021-12-18] MEDS ORDERED: ISOVUE-370 76% 100ML VIAL As Ordered ONE (21:18)
[2021-12-18 21:21] LABS: CPK CREATINE PHOSPHOKINASE 71 U/L (26-192)
[2021-12-18 21:33] LABS: ALBUMIN 3.7 GM/DL (3.2-5.2); ALT/SGPT 31 U/L (12-78); BILIRUBIN,DIRECT 0.2 MG/DL (0.0-0.2); BILIRUBIN,TOTAL 1.1 MG/DL (0.2-1.0); BLOOD UREA NITROGEN 12 MG/DL (7-18); CALCIUM LEVEL 9.6 MG/DL (8.8-10.2); CARBON DIOXIDE LEVEL 29 MEQ/L (21-32); CHLORIDE LEVEL 101 MEQ/L (98-107); CREATININE FOR GFR 0.68 MG/DL (0.55-1.30); FREE T4 1.03 NG/DL (0.76-1.46); GLOMERULAR FILTRATION RATE > 60.0 (>45); GLUCOSE, FASTING 153 MG/DL (70-100); LIPASE 84 U/L (73-393); NT-PRO BNP 126 PG/ML (<125); POTASSIUM SERUM 4.4 MEQ/L (3.5-5.1); SODIUM LEVEL 135 MEQ/L (136-145); TOTAL PROTEIN 7.6 GM/DL (6.4-8.2)
[2021-12-18 22:25] LABS: CPK CREATINE PHOSPHOKINASE 77 U/L (26-192)
[2021-12-18 23:16] VITALS: BP 111/74
== END 2021-12-19 00:40 | disposition home or self-care (01) ==
LOC: M ED 18:31
DX: R07.89 Other chest pain (principal); E11.9 Type 2 diabetes mellitus without complications; I10 Essential (primary) hypertension; E78.5 Hyperlipidemia, unspecified; E03.9 Hypothyroidism, unspecified; F32.A Depression, unspecified; Z90.89 Acquired absence of other organs; Z90.49 Acquired absence of other specified parts of digestive tract; Z90.710 Acquired absence of both cervix and uterus; Z88.2 Allergy status to sulfonamides; Z88.8 Allergy status to other drugs, medicaments and biological substances; Z88.1 Allergy status to other antibiotic agents; Z79.51 Long term (current) use of inhaled steroids; Z79.899 Other long term (current) drug therapy; Z79.890 Hormone replacement therapy
CPT/HCPCS: 36415; 71046; 71275; 80048; 80076; 82550; 83690; 83880; 84439; 84443; 85025; 85379; 93005; 99284; Q9967

== ENCOUNTER → 2021-12-24 | Outpatient (CLI) | payer OTHER, MEDICARE ==
[2021-12-24 16:55] LABS: BASO % 0.7 % (0.0-1.0); EOS # 0.3 10^3/uL (0.0-0.5); EOS % 5.9 % (0.0-3.0); HEMATOCRIT 40.9 % (36.0-47.0); HEMOGLOBIN 12.9 g/dl (12.0-15.5); LYMPH # 2.7 10^3/uL (1.5-5.0); LYMPH % 47.8 % (24.0-44.0); MEAN CORPUSCULAR HEMOGLOBIN 30.8 pg (27.0-33.0); MEAN CORPUSCULAR HGB CONC 31.5 g/dl (32.0-36.5); MEAN CORPUSCULAR VOLUME 97.6 fl (80.0-96.0); MONO # 0.3 10^3/uL (0.0-0.8); MONO % 6.1 % (2.0-8.0); NEUTROPHILS # 2.2 10^3/uL (1.5-8.5); PLATELET COUNT, AUTOMATED 301 10^3/uL (150-450); RED BLOOD COUNT 4.19 10^6/uL (4.00-5.40); WHITE BLOOD COUNT 5.6 10^3/uL (4.0-10.0)
[2021-12-24 17:35] LABS: ALBUMIN 3.8 GM/DL (3.2-5.2); ALT/SGPT 30 U/L (12-78); BILIRUBIN,TOTAL 0.8 MG/DL (0.2-1.0); BLOOD UREA NITROGEN 12 MG/DL (7-18); CALCIUM LEVEL 9.1 MG/DL (8.8-10.2); CARBON DIOXIDE LEVEL 29 MEQ/L (21-32); CHLORIDE LEVEL 104 MEQ/L (98-107); CHOLESTEROL LEVEL 125 MG/DL (<200); CHOLESTEROL RISK RATIO 1.644 (<5); CREATININE FOR GFR 0.64 MG/DL (0.55-1.30); FERRITIN 60 NG/ML (8-252); FREE T4 0.93 NG/DL (0.76-1.46); GLOMERULAR FILTRATION RATE > 60.0 (>45); GLUCOSE, FASTING 171 MG/DL (70-100); HDL CHOLESTEROL 76 MG/DL (>40); LDL CHOLESTEROL 37 MG/DL (<100); NON-HDL-C 49 MG/DL; NT-PRO BNP 69 PG/ML (<125); POTASSIUM SERUM 4.4 MEQ/L (3.5-5.1); SODIUM LEVEL 138 MEQ/L (136-145); TOTAL PROTEIN 7.3 GM/DL (6.4-8.2); TRIGLYCERIDES LEVEL 61 MG/DL (<150)
[2021-12-24 17:59] LABS: PTH INTACT 92.6 PG/ML (18.5-88.0); TOTAL 25(OH) VITAMIN D 68.2 NG/ML (30.0-100.0)
[2021-12-24 18:01] LABS: VITAMIN B12 LEVEL 1359 PG/ML (247-911)
[2021-12-24 20:13] LABS: HEMOGLOBIN A1c 7.4 %
== END ==
LOC: M PLALAB 12:28
PROVIDERS: ATTEND Family Medicine
DX: D50.9 Iron deficiency anemia, unspecified (principal)

== ENCOUNTER → 2022-02-11 | Outpatient (CLI) | payer OTHER, MEDICARE ==
[2022-02-11 19:12] LABS: APPEARANCE, URINE MANUAL CLEAR (CLEAR); BILIRUBIN, URINE MANUAL 2+ (NEGATIVE); COLOR, URINE MANUAL DK YELLOW (YELLOW); GLUCOSE, URINE (UA) MANUAL NEGATIVE (NEGATIVE); KETONE, URINE MANUAL NEGATIVE (NEGATIVE); LEUKOCYTE ESTERASE, URINE MAN POSITIVE (NEGATIVE); NITRITE, URINE MANUAL NEGATIVE (NEGATIVE); PROTEIN, URINE MANUAL TRACE mg/dL (NEGATIVE); SPECIFIC GRAVITY,URINE MANUAL 1.025 (1.002-1.035); UROBILINOGEN, URINE MANUAL NORMAL (NORMAL)
[2022-02-11 19:13] LABS: BLOOD URINE MANUAL TRACE (NEGATIVE)
[2022-02-11 20:31] LABS: BACTERIA, URINE LARGE AMOUNT; RBC, URINE 0-1 /hpf (0-3); SQUAMOUS EPITHELIAL CELL URINE LARGE AMOUNT /hpf (SMALL AMT)
== END ==
LOC: M LAB 18:38
PROVIDERS: ATTEND Urology
DX: N39.41 Urge incontinence (principal); Z87.440 Personal history of urinary (tract) infections; N32.81 Overactive bladder

== ENCOUNTER 2022-02-15 15:00 | Emergency (ER) | payer OTHER, MEDICARE ==
[~2022-02-15] VITALS: Ht 167.6 cm; Wt 85.0 kg
[~2022-02-15 15:00] MED LIST changes: -POTA10CA32 PO; +POTA10CA33 PO
[2022-02-15 15:01] VITALS: BP 105/70
== END 2022-02-15 22:48 | disposition left against medical advice (07) ==
LOC: M ED 15:00
DX: Z53.21 Procedure and treatment not carried out due to patient leaving prior to being seen by health care provider (principal)

== ENCOUNTER → 2022-04-16 | Outpatient (REF) | payer MEDICARE, OTHER ==
[2022-04-16 12:27] LABS: APPEARANCE, URINE MANUAL HAZY (CLEAR)
[2022-04-16 12:29] LABS: BILIRUBIN, URINE MANUAL 2+ (NEGATIVE); COLOR, URINE MANUAL DK YELLOW (YELLOW); GLUCOSE, URINE (UA) MANUAL NEGATIVE (NEGATIVE); KETONE, URINE MANUAL 1+ mg/dL (NEGATIVE); PROTEIN, URINE MANUAL TRACE mg/dL (NEGATIVE); UROBILINOGEN, URINE MANUAL NORMAL (NORMAL)
[2022-04-16 12:30] LABS: BLOOD URINE MANUAL TRACE (NEGATIVE); LEUKOCYTE ESTERASE, URINE MAN POSITIVE (NEGATIVE); NITRITE, URINE MANUAL POSITIVE (NEGATIVE)
[2022-04-16 13:06] LABS: BACTERIA, URINE LARGE AMOUNT; SQUAMOUS EPITHELIAL CELL URINE MOD AMOUNT /hpf (SMALL AMT)
[2022-04-16 13:07] LABS: HYALINE CAST, URINE NONE SEEN /lpf (0-1)
== END ==
LOC: M LAB REF 11:22
PROVIDERS: ATTEND Urology
DX: N39.41 Urge incontinence (principal); Z87.440 Personal history of urinary (tract) infections; N32.81 Overactive bladder

== ENCOUNTER → 2022-05-06 | Outpatient (CLI) | payer MEDICARE, OTHER ==
[2022-05-06 13:49] LABS: BASO # 0.1 10^3/uL (0.0-0.2); BASO % 0.9 % (0.0-1.0); EOS # 0.4 10^3/uL (0.0-0.5); EOS % 7.9 % (0.0-3.0); HEMOGLOBIN 12.1 g/dl (12.0-15.5); LYMPH # 2.6 10^3/uL (1.5-5.0); LYMPH % 46.5 % (24.0-44.0); MEAN CORPUSCULAR HEMOGLOBIN 30.8 pg (27.0-33.0); MEAN CORPUSCULAR HGB CONC 31.8 g/dl (32.0-36.5); MEAN CORPUSCULAR VOLUME 96.7 fl (80.0-96.0); MONO # 0.4 10^3/uL (0.0-0.8); MONO % 6.7 % (2.0-8.0); NEUTROPHILS # 2.1 10^3/uL (1.5-8.5); NEUTROPHILS % 37.8 % (36.0-66.0); PLATELET COUNT, AUTOMATED 213 10^3/uL (150-450); RED BLOOD COUNT 3.93 10^6/uL (4.00-5.40); WHITE BLOOD COUNT 5.6 10^3/uL (4.0-10.0)
[2022-05-06 14:00] LABS: INR 0.91; PROTHROMBIN TIME 12.4 SECONDS (12.5-14.5)
[2022-05-06 14:12] LABS: CREATININE, URINE 96.5 MG/DL; MAU/CREAT RATIO 5.1 MCG/MG (0.0-30.0)
[2022-05-06 14:15] LABS: HEMOGLOBIN A1c 6.6 % (4.0-6.0)
[2022-05-06 14:27] LABS: ALBUMIN 3.8 G/DL (3.2-5.2); ALKALINE PHOSPHATASE 85 U/L (46-116); ALT/SGPT 31 U/L (7.0-40); AST/SGOT 26 U/L (<34); BILIRUBIN,TOTAL 1.3 MG/DL (0.3-1.2); BLOOD UREA NITROGEN 18 MG/DL (9-23); CARBON DIOXIDE LEVEL 28 MMOL/L (20-31); CHLORIDE LEVEL 103 MMOL/L (98-107); CREATININE FOR GFR 0.68 MG/DL (0.55-1.30); FERRITIN 46.4 NG/ML (7.3-270.7); FREE T4 1.14 NG/DL (0.89-1.76); GLOMERULAR FILTRATION RATE > 60.0 (>45); GLUCOSE, FASTING 109 MG/DL (74-106); POTASSIUM SERUM 4.1 MMOL/L (3.5-5.1); SODIUM LEVEL 138 MMOL/L (136-145); THYROID STIMULATING HORMONE 4.236 uIU/ML (0.55-4.78); TOTAL PROTEIN 6.8 G/DL (5.7-8.2)
== END ==
LOC: M PLALAB 09:56
PROVIDERS: ATTEND Family Medicine
DX: E11.9 Type 2 diabetes mellitus without complications (principal); Z79.01 Long term (current) use of anticoagulants

== ENCOUNTER 2022-06-21 11:30 | Inpatient (IN) | payer MEDICARE, OTHER ==
[~2022-06-21] VITALS: Ht 167.6 cm; Wt 90.7 kg
[~2022-06-21 11:30] MED LIST changes: +LORA1TAB23 PO; -LORA1TAB4 PO; +POTA-298 PO; -POTA1TAB14 PO
[2022-06-21] MEDS ORDERED: ONDANSETRON 4MG TAB PO PRN (11:35)
[2022-06-21] MEDS ORDERED: GLUCAGON INJ 1MG VIAL SC PRN (11:35)
[2022-06-21] MEDS ORDERED: DEXTROSE 50% 50ML SYRINGE IV PRN (11:35)
[2022-06-21] MEDS ORDERED: ACETAMINOPHEN TAB 650MG DOSE (2X325MG) PO PRN (11:35)
[2022-06-21] MEDS ORDERED: GLUCOSE 4GM CHEW TABLET PO PRN (11:35)
[2022-06-21 13:30] VITALS: BP 135/94
[2022-06-21] MEDS ORDERED: FLUT1BLS5 INH (14:27)
[2022-06-21] MEDS ORDERED: CYCL5TAB PO (14:27)
[2022-06-21] MEDS ORDERED: BISA10SU27 PR (14:27)
[2022-06-21] MEDS ORDERED: INDA25TAB PO (14:27)
[2022-06-21] MEDS ORDERED: LEVO1TAB39 PO (14:27)
[2022-06-21] MEDS ORDERED: COLA100C5 PO (14:27)
[2022-06-21] MEDS ORDERED: LIDO1PAD TOP (14:27)
[2022-06-21] MEDS ORDERED: LEXA1TAB2 PO (14:27)
[2022-06-21] MEDS ORDERED: K-PHTAB2 PO (14:27)
[2022-06-21] MEDS ORDERED: ENOX40IN3 SC (14:27)
[2022-06-21] MEDS ORDERED: INSUHUMDS SC (14:27)
[2022-06-21] MEDS ORDERED: MAGN400T2 PO (14:27)
[2022-06-21] MEDS ORDERED: ESTR0.1C5 PV (14:27)
[2022-06-21] MEDS ORDERED: REFR0.1D OU (14:27)
[2022-06-21] MEDS ORDERED: HOME MED LIST COMPLETE! XX SCH (14:30)
[2022-06-21] MEDS: ESCITALOPRAM OXALATE 10 MG TAB (LEXAPRO) PO SCH (15:37)
[2022-06-21] MEDS: GABAPENTIN 300 MG CAP PO SCH ×2 (15:37→20:06)
[2022-06-21] MEDS: BACLOFEN 10 MG TAB PO SCH ×2 (15:37→20:05)
[2022-06-21] MEDS: POLYVINYL ALCOHOL OPHTH SOLN 15ML (LIQUITEARS) OU SCH ×2 (15:38→20:09)
[2022-06-21] MEDS: REMEDY PHYTOPLEX Z-GUARD PASTE 113GM TUBE (FROM STOREROOM PRODUCT) TOP SCH ×2 (15:38→20:09)
[2022-06-21] MEDS: LACTOBACILLUS ACIDOPHILUS CAP (BACID) PO SCH (17:13)
[2022-06-21] MEDS: INSULIN LISPRO (NovoLOG) PER UNIT SC SCH ×2 (17:14→20:05)
[2022-06-21] MEDS: SENNA 8.6 MG TAB (SENOKOT) PO SCH (19:26)
[2022-06-21] MEDS: COMBIVENT RESPIMAT 100-20MCG INHALER 4GM INH SCH (19:47)
[2022-06-21] MEDS: SYMBICORT 160/4.5MCG INHALER 6GM INH SCH (19:47)
[2022-06-21 20:00] VITALS: BP 109/63
[2022-06-21] MEDS: MAGNESIUM OXIDE 400MG TAB (MAG-OX) PO SCH (20:05)
[2022-06-21] MEDS: K-PHOS NEUTRAL 250MG TABLET (SOD.PHOSPHATE/POT.PHOSPHATE) PO SCH (20:05)
[2022-06-21] MEDS: AMITRIPTYLINE 25MG TABLET PO SCH (20:05)
[2022-06-21] MEDS: NYSTATIN 100,000 UNITS/GM TOPICAL PWD 15GM TOP SCH (20:09)
[2022-06-21] MEDS ORDERED: DICLOFENAC EPOLAMINE 1.3% PATCH TOP PRN (21:55)
[2022-06-21] MEDS: IBUPROFEN 400MG TAB PO PRN (22:27)
[2022-06-22] MEDS: LevoFLOXacin 500 MG TABLET PO SCH (05:54)
[2022-06-22] MEDS: LEVOTHYROXINE 50MCG TABLET (0.05MG) PO SCH (05:54)
[2022-06-22 06:00] VITALS: BP 119/69
[2022-06-22 06:45] LABS: BASO # 0.1 10^3/uL (0.0-0.2); BASO % 0.8 % (0.0-1.0); EOS # 0.3 10^3/uL (0.0-0.5); EOS % 5.5 % (0.0-3.0); HEMATOCRIT 39.8 % (36.0-47.0); HEMOGLOBIN 13.4 g/dl (12.0-15.5); LYMPH # 2.4 10^3/uL (1.5-5.0); LYMPH % 38.7 % (24.0-44.0); MEAN CORPUSCULAR HEMOGLOBIN 30.8 pg (27.0-33.0); MEAN CORPUSCULAR HGB CONC 33.7 g/dl (32.0-36.5); MEAN CORPUSCULAR VOLUME 91.5 fl (80.0-96.0); MONO # 0.6 10^3/uL (0.0-0.8); MONO % 10.3 % (2.0-8.0); NEUTROPHILS # 2.8 10^3/uL (1.5-8.5); NEUTROPHILS % 44.5 % (36.0-66.0); PLATELET COUNT, AUTOMATED 352 10^3/uL (150-450); RED BLOOD COUNT 4.35 10^6/uL (4.00-5.40); WHITE BLOOD COUNT 6.2 10^3/uL (4.0-10.0)
[2022-06-22 07:16] LABS: ALBUMIN 3.4 G/DL (3.2-5.2); ALKALINE PHOSPHATASE 87 U/L (46-116); ALT/SGPT 17 U/L (7.0-40); AST/SGOT 16 U/L (<34); BILIRUBIN,TOTAL 0.8 MG/DL (0.3-1.2); BLOOD UREA NITROGEN 18 MG/DL (9-23); CALCIUM LEVEL 9.2 MG/DL (8.3-10.6); CARBON DIOXIDE LEVEL 31 MMOL/L (20-31); CHLORIDE LEVEL 95 MMOL/L (98-107); CREATININE FOR GFR 0.61 MG/DL (0.55-1.30); GLOMERULAR FILTRATION RATE > 60.0 (>45); GLUCOSE, FASTING 216 MG/DL (74-106); POTASSIUM SERUM 3.3 MMOL/L (3.5-5.1); SODIUM LEVEL 135 MMOL/L (136-145)
[2022-06-22] MEDS: K-PHOS NEUTRAL 250MG TABLET (SOD.PHOSPHATE/POT.PHOSPHATE) PO SCH ×2 (07:25→20:11)
[2022-06-22] MEDS: INDAPAMIDE 1.25MG TABLET PO SCH (07:26)
[2022-06-22] MEDS: PANTOPRAZOLE 40MG TAB (PROTONIX) PO SCH (07:27)
[2022-06-22] MEDS: DULoxetine 30MG CAPSULE (CYMBALTA) PO SCH (07:27)
[2022-06-22] MEDS: METAMUCIL (PSYLLIUM) PACKET PO SCH (07:27)
[2022-06-22] MEDS: ROSUVASTATIN 10 MG TAB (CRESTOR) PO SCH (07:27)
[2022-06-22] MEDS: LACTOBACILLUS ACIDOPHILUS CAP (BACID) PO SCH ×2 (07:27→17:13)
[2022-06-22] MEDS: BACLOFEN 10 MG TAB PO SCH ×3 (07:27→20:11)
[2022-06-22] MEDS: GABAPENTIN 300 MG CAP PO SCH ×3 (07:27→20:11)
[2022-06-22] MEDS: FOLIC ACID 1MG TAB PO SCH (07:28)
[2022-06-22] MEDS: MAGNESIUM OXIDE 400MG TAB (MAG-OX) PO SCH ×2 (07:28→20:11)
[2022-06-22] MEDS: ENOXAPARIN 40MG/0.4ML SYRINGE (J1650 PER 10MG) SC SCH (07:29)
[2022-06-22] MEDS: NYSTATIN 100,000 UNITS/GM TOPICAL PWD 15GM TOP SCH ×2 (07:30→20:14)
[2022-06-22] MEDS: INSULIN LISPRO (NovoLOG) PER UNIT SC SCH ×4 (07:30→20:15)
[2022-06-22] MEDS: POLYVINYL ALCOHOL OPHTH SOLN 15ML (LIQUITEARS) OU SCH ×3 (07:30→20:14)
[2022-06-22] MEDS: REMEDY PHYTOPLEX Z-GUARD PASTE 113GM TUBE (FROM STOREROOM PRODUCT) TOP SCH ×3 (07:31→20:14)
[2022-06-22] MEDS: SYMBICORT 160/4.5MCG INHALER 6GM INH SCH ×2 (08:14→19:55)
[2022-06-22] MEDS: COMBIVENT RESPIMAT 100-20MCG INHALER 4GM INH SCH ×3 (08:14→19:55)
[2022-06-22] MEDS ORDERED: LEVEMIR (INSULIN DETEMIR) 1 UNITS/0.01ML SC SCH ×2 (09:00→21:00)
[2022-06-22] MEDS ORDERED: LIDOCAINE 5% (LIDODERM) PATCH TD SCH ×2 (09:00→21:00)
[2022-06-22] MEDS: SITagliptin 50 MG TAB (JANUVIA) PO SCH (09:00)
[2022-06-22] MEDS ORDERED: POTASSIUM CHLORIDE 10MEQ SR TABLET PO ONE (09:10)
[2022-06-22] MEDS ORDERED: PILL CUTTER 1 EACH XX PRN (09:20)
[2022-06-22 10:08] VITALS: BP 121/79
[2022-06-22] MEDS: PROPRANOLOL 10 MG TAB PO SCH ×3 (10:11→20:13)
[2022-06-22] MEDS: ESCITALOPRAM OXALATE 10 MG TAB (LEXAPRO) PO SCH (11:48)
[2022-06-22] MEDS: DICLOFENAC EPOLAMINE 1.3% PATCH TOP SCH ×2 (11:48→20:13)
[2022-06-22] MEDS: IBUPROFEN 400MG TAB PO PRN ×2 (11:55→23:57)
[2022-06-22] MEDS: LIDOCAINE 5% (LIDODERM) PATCH TD SCH (12:20)
[2022-06-22 14:00] VITALS: BP 105/66
[2022-06-22] MEDS: MECLIZINE 12.5 MG TAB PO SCH ×2 (15:43→20:13)
[2022-06-22 20:00] VITALS: BP 116/70
[2022-06-22] MEDS: AMITRIPTYLINE 25MG TABLET PO SCH (20:11)
[2022-06-22] MEDS: SENNA 8.6 MG TAB (SENOKOT) PO SCH (20:11)
[2022-06-23] MEDS: LEVOTHYROXINE 50MCG TABLET (0.05MG) PO SCH (05:17)
[2022-06-23] MEDS: LevoFLOXacin 500 MG TABLET PO SCH (05:17)
[2022-06-23 06:00] VITALS: BP 117/71
[2022-06-23] MEDS ORDERED: ACETAMINOPHEN TAB 650MG DOSE (2X325MG) PO ONE (06:00)
[2022-06-23 06:56] LABS: BASO # 0.1 10^3/uL (0.0-0.2); BASO % 0.8 % (0.0-1.0); EOS # 0.4 10^3/uL (0.0-0.5); EOS % 5.7 % (0.0-3.0); HEMATOCRIT 37.4 % (36.0-47.0); HEMOGLOBIN 12.3 g/dl (12.0-15.5); LYMPH # 2.5 10^3/uL (1.5-5.0); LYMPH % 37.6 % (24.0-44.0); MEAN CORPUSCULAR HEMOGLOBIN 30.2 pg (27.0-33.0); MEAN CORPUSCULAR HGB CONC 32.9 g/dl (32.0-36.5); MEAN CORPUSCULAR VOLUME 91.9 fl (80.0-96.0); MONO # 0.6 10^3/uL (0.0-0.8); MONO % 8.4 % (2.0-8.0); NEUTROPHILS # 3.1 10^3/uL (1.5-8.5); NEUTROPHILS % 47.3 % (36.0-66.0); PLATELET COUNT, AUTOMATED 344 10^3/uL (150-450); RED BLOOD COUNT 4.07 10^6/uL (4.00-5.40); WHITE BLOOD COUNT 6.6 10^3/uL (4.0-10.0)
[2022-06-23 07:21] LABS: BLOOD UREA NITROGEN 13 MG/DL (9-23); CARBON DIOXIDE LEVEL 28 MMOL/L (20-31); CHLORIDE LEVEL 100 MMOL/L (98-107); GLOMERULAR FILTRATION RATE > 60.0 (>45); GLUCOSE, FASTING 176 MG/DL (74-106); POTASSIUM SERUM 3.3 MMOL/L (3.5-5.1); SODIUM LEVEL 135 MMOL/L (136-145)
[2022-06-23] MEDS: METAMUCIL (PSYLLIUM) PACKET PO SCH (09:01)
[2022-06-23] MEDS: ENOXAPARIN 40MG/0.4ML SYRINGE (J1650 PER 10MG) SC SCH (09:02)
[2022-06-23] MEDS: DULoxetine 30MG CAPSULE (CYMBALTA) PO SCH (09:02)
[2022-06-23] MEDS: GABAPENTIN 300 MG CAP PO SCH ×3 (09:02→20:50)
[2022-06-23] MEDS: LACTOBACILLUS ACIDOPHILUS CAP (BACID) PO SCH ×2 (09:03→17:27)
[2022-06-23] MEDS: INDAPAMIDE 1.25MG TABLET PO SCH (09:03)
[2022-06-23] MEDS: ROSUVASTATIN 10 MG TAB (CRESTOR) PO SCH (09:03)
[2022-06-23] MEDS: IBUPROFEN 400MG TAB PO PRN (09:03)
[2022-06-23] MEDS: BACLOFEN 10 MG TAB PO SCH ×3 (09:04→20:50)
[2022-06-23] MEDS: SITagliptin 50 MG TAB (JANUVIA) PO SCH (09:04)
[2022-06-23] MEDS: MECLIZINE 12.5 MG TAB PO SCH ×3 (09:04→20:50)
[2022-06-23] MEDS: PANTOPRAZOLE 40MG TAB (PROTONIX) PO SCH (09:04)
[2022-06-23] MEDS: MAGNESIUM OXIDE 400MG TAB (MAG-OX) PO SCH ×2 (09:04→20:50)
[2022-06-23] MEDS: FOLIC ACID 1MG TAB PO SCH (09:04)
[2022-06-23] MEDS: K-PHOS NEUTRAL 250MG TABLET (SOD.PHOSPHATE/POT.PHOSPHATE) PO SCH ×2 (09:04→20:50)
[2022-06-23] MEDS: DICLOFENAC EPOLAMINE 1.3% PATCH TOP SCH ×2 (09:05→20:53)
[2022-06-23] MEDS: LIDOCAINE 5% (LIDODERM) PATCH TD SCH (09:05)
[2022-06-23] MEDS: NYSTATIN 100,000 UNITS/GM TOPICAL PWD 15GM TOP SCH ×2 (09:09→20:54)
[2022-06-23] MEDS: PROPRANOLOL 10 MG TAB PO SCH ×3 (09:09→20:51)
[2022-06-23] MEDS: REMEDY PHYTOPLEX Z-GUARD PASTE 113GM TUBE (FROM STOREROOM PRODUCT) TOP SCH ×3 (09:09→20:54)
[2022-06-23] MEDS: POLYVINYL ALCOHOL OPHTH SOLN 15ML (LIQUITEARS) OU SCH ×3 (09:09→20:48)
[2022-06-23] MEDS: SYMBICORT 160/4.5MCG INHALER 6GM INH SCH ×2 (09:15→20:38)
[2022-06-23] MEDS: COMBIVENT RESPIMAT 100-20MCG INHALER 4GM INH SCH ×3 (09:15→20:38)
[2022-06-23] MEDS: INSULIN LISPRO (NovoLOG) PER UNIT SC SCH ×4 (09:20→20:53)
[2022-06-23] MEDS: ESCITALOPRAM OXALATE 10 MG TAB (LEXAPRO) PO SCH (12:38)
[2022-06-23] MEDS: POTASSIUM CHLORIDE 10MEQ SR TABLET PO SCH ×2 (12:48→20:49)
[2022-06-23 14:00] VITALS: BP 111/71
[2022-06-23] MEDS ORDERED: oxyCODONE 5MG TAB PO ONE (16:30)
[2022-06-23] MEDS: LORATADINE 10 MG TAB PO SCH (17:27)
[2022-06-23] MEDS: FLUTICASONE PROP 0.05% NASAL SPRAY 16 GM (FLONASE) NARES SCH (20:48)
[2022-06-23] MEDS: SODIUM CHLORIDE NASAL 0.65% SPRAY BTL (OCEAN) SCH (20:49)
[2022-06-23] MEDS: AMITRIPTYLINE 25MG TABLET PO SCH (20:50)
[2022-06-23] MEDS: SENNA 8.6 MG TAB (SENOKOT) PO SCH (20:51)
[2022-06-23 21:00] VITALS: BP 112/58
[2022-06-23] MEDS: oxyCODONE 5MG TAB PO PRN (23:22)
[2022-06-24] MEDS: LevoFLOXacin 500 MG TABLET PO SCH (05:32)
[2022-06-24] MEDS: LEVOTHYROXINE 50MCG TABLET (0.05MG) PO SCH (05:32)
[2022-06-24 06:00] VITALS: BP 97/59
[2022-06-24 06:13] LABS: BLOOD UREA NITROGEN 16 MG/DL (9-23); CALCIUM LEVEL 8.8 MG/DL (8.3-10.6); CARBON DIOXIDE LEVEL 30 MMOL/L (20-31); CHLORIDE LEVEL 98 MMOL/L (98-107); GLOMERULAR FILTRATION RATE > 60.0 (>45); GLUCOSE, FASTING 164 MG/DL (74-106); POTASSIUM SERUM 3.5 MMOL/L (3.5-5.1); SODIUM LEVEL 134 MMOL/L (136-145)
[2022-06-24] MEDS: COMBIVENT RESPIMAT 100-20MCG INHALER 4GM INH SCH ×3 (07:14→20:00)
[2022-06-24] MEDS: SYMBICORT 160/4.5MCG INHALER 6GM INH SCH ×2 (07:14→20:00)
[2022-06-24] MEDS: ROSUVASTATIN 10 MG TAB (CRESTOR) PO SCH (07:32)
[2022-06-24] MEDS: GABAPENTIN 300 MG CAP PO SCH ×3 (07:32→20:42)
[2022-06-24] MEDS: IBUPROFEN 400MG TAB PO PRN (07:32)
[2022-06-24] MEDS: LACTOBACILLUS ACIDOPHILUS CAP (BACID) PO SCH ×2 (07:33→17:00)
[2022-06-24] MEDS: FOLIC ACID 1MG TAB PO SCH (07:33)
[2022-06-24] MEDS: DULoxetine 30MG CAPSULE (CYMBALTA) PO SCH (07:33)
[2022-06-24] MEDS: LORATADINE 10 MG TAB PO SCH (07:34)
[2022-06-24] MEDS: INDAPAMIDE 1.25MG TABLET PO SCH ×3 (07:34→08:01)
[2022-06-24] MEDS: SITagliptin 50 MG TAB (JANUVIA) PO SCH (07:34)
[2022-06-24] MEDS: METAMUCIL (PSYLLIUM) PACKET PO SCH (07:35)
[2022-06-24] MEDS: ENOXAPARIN 40MG/0.4ML SYRINGE (J1650 PER 10MG) SC SCH (07:36)
[2022-06-24] MEDS: INSULIN LISPRO (NovoLOG) PER UNIT SC SCH ×4 (07:37→21:00)
[2022-06-24] MEDS: PROPRANOLOL 10 MG TAB PO SCH ×3 (07:37→20:44)
[2022-06-24] MEDS: PANTOPRAZOLE 40MG TAB (PROTONIX) PO SCH (07:40)
[2022-06-24] MEDS: MECLIZINE 12.5 MG TAB PO SCH ×3 (07:40→20:42)
[2022-06-24] MEDS: MAGNESIUM OXIDE 400MG TAB (MAG-OX) PO SCH ×2 (07:41→20:44)
[2022-06-24] MEDS: K-PHOS NEUTRAL 250MG TABLET (SOD.PHOSPHATE/POT.PHOSPHATE) PO SCH ×2 (07:41→20:43)
[2022-06-24] MEDS: FLUTICASONE PROP 0.05% NASAL SPRAY 16 GM (FLONASE) NARES SCH ×2 (07:43→21:00)
[2022-06-24] MEDS: NYSTATIN 100,000 UNITS/GM TOPICAL PWD 15GM TOP SCH ×2 (07:43→20:46)
[2022-06-24] MEDS: REMEDY PHYTOPLEX Z-GUARD PASTE 113GM TUBE (FROM STOREROOM PRODUCT) TOP SCH ×3 (07:44→20:46)
[2022-06-24] MEDS: POLYVINYL ALCOHOL OPHTH SOLN 15ML (LIQUITEARS) OU SCH ×3 (07:44→21:00)
[2022-06-24] MEDS: LIDOCAINE 5% (LIDODERM) PATCH TD SCH (07:45)
[2022-06-24] MEDS: BACLOFEN 10 MG TAB PO SCH ×3 (07:53→20:44)
[2022-06-24] MEDS: SODIUM CHLORIDE NASAL 0.65% SPRAY BTL (OCEAN) SCH ×3 (07:58→21:00)
[2022-06-24] MEDS ORDERED: SITagliptin 50 MG TAB (JANUVIA) PO ONE (09:05)
[2022-06-24] MEDS: POTASSIUM CHLORIDE 10MEQ SR TABLET PO SCH ×2 (09:31→20:42)
[2022-06-24] MEDS: oxyCODONE 5MG TAB PO PRN ×2 (11:03→17:01)
[2022-06-24] MEDS: DICLOFENAC EPOLAMINE 1.3% PATCH TOP SCH ×2 (11:03→20:45)
[2022-06-24] MEDS: LIDOCAINE 5% (LIDODERM) PATCH TD PRN (11:11)
[2022-06-24] MEDS: ESCITALOPRAM OXALATE 10 MG TAB (LEXAPRO) PO SCH (12:06)
[2022-06-24 14:00] VITALS: BP 118/71
[2022-06-24 20:00] VITALS: BP 134/68
[2022-06-24] MEDS: RAMELTEON 8 MG TAB (ROZEREM) PO PRN (20:43)
[2022-06-24] MEDS: AMITRIPTYLINE 25MG TABLET PO SCH (20:44)
[2022-06-24] MEDS: SENNA 8.6 MG TAB (SENOKOT) PO SCH (20:44)
[2022-06-25] MEDS: LEVOTHYROXINE 50MCG TABLET (0.05MG) PO SCH (05:07)
[2022-06-25] MEDS: LevoFLOXacin 500 MG TABLET PO SCH (05:07)
[2022-06-25] MEDS: oxyCODONE 5MG TAB PO PRN (05:08)
[2022-06-25 06:00] VITALS: BP 105/62
[2022-06-25 06:28] LABS: BASO # 0.1 10^3/uL (0.0-0.2); EOS # 0.3 10^3/uL (0.0-0.5); EOS % 4.9 % (0.0-3.0); HEMATOCRIT 32.2 % (36.0-47.0); HEMOGLOBIN 10.5 g/dl (12.0-15.5); LYMPH # 2.5 10^3/uL (1.5-5.0); LYMPH % 40.5 % (24.0-44.0); MEAN CORPUSCULAR HEMOGLOBIN 30.5 pg (27.0-33.0); MEAN CORPUSCULAR HGB CONC 32.6 g/dl (32.0-36.5); MEAN CORPUSCULAR VOLUME 93.6 fl (80.0-96.0); MONO # 0.5 10^3/uL (0.0-0.8); NEUTROPHILS # 2.8 10^3/uL (1.5-8.5); NEUTROPHILS % 45.1 % (36.0-66.0); PLATELET COUNT, AUTOMATED 334 10^3/uL (150-450); RED BLOOD COUNT 3.44 10^6/uL (4.00-5.40); WHITE BLOOD COUNT 6.2 10^3/uL (4.0-10.0)
[2022-06-25 06:39] LABS: BLOOD UREA NITROGEN 20 MG/DL (9-23); CALCIUM LEVEL 8.9 MG/DL (8.3-10.6); CARBON DIOXIDE LEVEL 31 MMOL/L (20-31); CHLORIDE LEVEL 102 MMOL/L (98-107); CREATININE FOR GFR 0.58 MG/DL (0.55-1.30); GLOMERULAR FILTRATION RATE > 60.0 (>45); GLUCOSE, FASTING 168 MG/DL (74-106); POTASSIUM SERUM 3.9 MMOL/L (3.5-5.1); SODIUM LEVEL 139 MMOL/L (136-145)
[2022-06-25] MEDS: PROPRANOLOL 10 MG TAB PO SCH ×3 (07:13→20:03)
[2022-06-25] MEDS: INDAPAMIDE 1.25MG TABLET PO SCH (07:13)
[2022-06-25] MEDS: METAMUCIL (PSYLLIUM) PACKET PO SCH (07:19)
[2022-06-25] MEDS: ENOXAPARIN 40MG/0.4ML SYRINGE (J1650 PER 10MG) SC SCH (07:19)
[2022-06-25] MEDS: LIDOCAINE 5% (LIDODERM) PATCH TD SCH (07:21)
[2022-06-25] MEDS: POTASSIUM CHLORIDE 10MEQ SR TABLET PO SCH ×2 (07:21→20:03)
[2022-06-25] MEDS: DICLOFENAC EPOLAMINE 1.3% PATCH TOP SCH ×2 (07:21→20:02)
[2022-06-25] MEDS: ROSUVASTATIN 10 MG TAB (CRESTOR) PO SCH (07:21)
[2022-06-25] MEDS: GABAPENTIN 300 MG CAP PO SCH ×3 (07:21→20:02)
[2022-06-25] MEDS: LACTOBACILLUS ACIDOPHILUS CAP (BACID) PO SCH ×2 (07:21→16:55)
[2022-06-25] MEDS: DULoxetine 30MG CAPSULE (CYMBALTA) PO SCH (07:21)
[2022-06-25] MEDS: K-PHOS NEUTRAL 250MG TABLET (SOD.PHOSPHATE/POT.PHOSPHATE) PO SCH ×2 (07:21→20:02)
[2022-06-25] MEDS: BACLOFEN 10 MG TAB PO SCH ×3 (07:22→20:02)
[2022-06-25] MEDS: SITagliptin 50 MG TAB (JANUVIA) PO SCH (07:22)
[2022-06-25] MEDS: LORATADINE 10 MG TAB PO SCH (07:22)
[2022-06-25] MEDS: MAGNESIUM OXIDE 400MG TAB (MAG-OX) PO SCH ×2 (07:22→20:02)
[2022-06-25] MEDS: PANTOPRAZOLE 40MG TAB (PROTONIX) PO SCH (07:22)
[2022-06-25] MEDS: FOLIC ACID 1MG TAB PO SCH (07:22)
[2022-06-25] MEDS: POLYVINYL ALCOHOL OPHTH SOLN 15ML (LIQUITEARS) OU SCH ×3 (07:23→20:04)
[2022-06-25] MEDS: INSULIN LISPRO (NovoLOG) PER UNIT SC SCH ×4 (07:23→20:03)
[2022-06-25] MEDS: FLUTICASONE PROP 0.05% NASAL SPRAY 16 GM (FLONASE) NARES SCH ×2 (07:27→20:04)
[2022-06-25] MEDS: SODIUM CHLORIDE NASAL 0.65% SPRAY BTL (OCEAN) SCH ×3 (07:27→20:04)
[2022-06-25] MEDS: REMEDY PHYTOPLEX Z-GUARD PASTE 113GM TUBE (FROM STOREROOM PRODUCT) TOP SCH ×3 (07:27→20:05)
[2022-06-25] MEDS: NYSTATIN 100,000 UNITS/GM TOPICAL PWD 15GM TOP SCH ×2 (07:27→20:04)
[2022-06-25] MEDS: SYMBICORT 160/4.5MCG INHALER 6GM INH SCH ×2 (07:44→19:23)
[2022-06-25] MEDS: COMBIVENT RESPIMAT 100-20MCG INHALER 4GM INH SCH ×3 (07:44→19:23)
[2022-06-25] MEDS: MECLIZINE 12.5 MG TAB PO SCH ×3 (09:00→20:02)
[2022-06-25] MEDS: ESCITALOPRAM OXALATE 10 MG TAB (LEXAPRO) PO SCH (11:47)
[2022-06-25 14:00] VITALS: BP 129/70
[2022-06-25 19:55] VITALS: BP 108/74
[2022-06-25] MEDS: SENNA 8.6 MG TAB (SENOKOT) PO SCH (20:02)
[2022-06-25] MEDS: AMITRIPTYLINE 25MG TABLET PO SCH (20:02)
[2022-06-26] MEDS: LevoFLOXacin 500 MG TABLET PO SCH (05:38)
[2022-06-26] MEDS: LEVOTHYROXINE 50MCG TABLET (0.05MG) PO SCH (05:38)
[2022-06-26 06:00] VITALS: BP 106/66
[2022-06-26] MEDS: SYMBICORT 160/4.5MCG INHALER 6GM INH SCH ×2 (07:22→20:00)
[2022-06-26] MEDS: COMBIVENT RESPIMAT 100-20MCG INHALER 4GM INH SCH ×3 (07:22→20:00)
[2022-06-26] MEDS: LACTOBACILLUS ACIDOPHILUS CAP (BACID) PO SCH ×2 (08:37→16:54)
[2022-06-26] MEDS: INSULIN LISPRO (NovoLOG) PER UNIT SC SCH ×4 (08:37→20:12)
[2022-06-26] MEDS: LORATADINE 10 MG TAB PO SCH (08:38)
[2022-06-26] MEDS: DICLOFENAC EPOLAMINE 1.3% PATCH TOP SCH ×2 (08:38→20:11)
[2022-06-26] MEDS: MECLIZINE 12.5 MG TAB PO SCH ×3 (08:38→20:09)
[2022-06-26] MEDS: GABAPENTIN 300 MG CAP PO SCH ×3 (08:38→20:11)
[2022-06-26] MEDS: ROSUVASTATIN 10 MG TAB (CRESTOR) PO SCH (08:39)
[2022-06-26] MEDS: SITagliptin 50 MG TAB (JANUVIA) PO SCH (08:39)
[2022-06-26] MEDS: BACLOFEN 10 MG TAB PO SCH ×3 (08:39→20:11)
[2022-06-26] MEDS: FOLIC ACID 1MG TAB PO SCH (08:39)
[2022-06-26] MEDS: DULoxetine 30MG CAPSULE (CYMBALTA) PO SCH (08:39)
[2022-06-26] MEDS: K-PHOS NEUTRAL 250MG TABLET (SOD.PHOSPHATE/POT.PHOSPHATE) PO SCH ×2 (08:39→20:09)
[2022-06-26] MEDS: POTASSIUM CHLORIDE 10MEQ SR TABLET PO SCH ×2 (08:40→20:10)
[2022-06-26] MEDS: PANTOPRAZOLE 40MG TAB (PROTONIX) PO SCH (08:40)
[2022-06-26] MEDS: INDAPAMIDE 1.25MG TABLET PO SCH (08:40)
[2022-06-26] MEDS: MAGNESIUM OXIDE 400MG TAB (MAG-OX) PO SCH ×2 (08:40→20:10)
[2022-06-26] MEDS: ENOXAPARIN 40MG/0.4ML SYRINGE (J1650 PER 10MG) SC SCH (08:41)
[2022-06-26] MEDS: POLYVINYL ALCOHOL OPHTH SOLN 15ML (LIQUITEARS) OU SCH ×3 (08:41→20:12)
[2022-06-26] MEDS: FLUTICASONE PROP 0.05% NASAL SPRAY 16 GM (FLONASE) NARES SCH ×2 (08:41→20:13)
[2022-06-26] MEDS: LIDOCAINE 5% (LIDODERM) PATCH TD SCH (08:42)
[2022-06-26] MEDS: NYSTATIN 100,000 UNITS/GM TOPICAL PWD 15GM TOP SCH ×2 (08:42→20:13)
[2022-06-26] MEDS: REMEDY PHYTOPLEX Z-GUARD PASTE 113GM TUBE (FROM STOREROOM PRODUCT) TOP SCH ×3 (08:42→20:13)
[2022-06-26] MEDS: PROPRANOLOL 10 MG TAB PO SCH ×3 (08:43→20:12)
[2022-06-26] MEDS: METAMUCIL (PSYLLIUM) PACKET PO SCH (09:00)
[2022-06-26] MEDS: LIDOCAINE 5% (LIDODERM) PATCH TD PRN (09:10)
[2022-06-26] MEDS: SODIUM CHLORIDE NASAL 0.65% SPRAY BTL (OCEAN) SCH ×3 (09:11→20:13)
[2022-06-26] MEDS: oxyCODONE 5MG TAB PO PRN ×2 (09:15→20:10)
[2022-06-26 11:30] VITALS: BP 140/57
[2022-06-26] MEDS: ESCITALOPRAM OXALATE 10 MG TAB (LEXAPRO) PO SCH (12:02)
[2022-06-26 14:00] VITALS: BP 105/68
[2022-06-26 19:58] VITALS: BP 109/55
[2022-06-26] MEDS: AMITRIPTYLINE 25MG TABLET PO SCH (20:10)
[2022-06-26] MEDS: SENNA 8.6 MG TAB (SENOKOT) PO SCH (20:11)
[2022-06-27] MEDS: LEVOTHYROXINE 50MCG TABLET (0.05MG) PO SCH (05:43)
[2022-06-27 06:00] VITALS: BP 121/74
[2022-06-27] MEDS: COMBIVENT RESPIMAT 100-20MCG INHALER 4GM INH SCH ×3 (07:25→20:08)
[2022-06-27] MEDS: SYMBICORT 160/4.5MCG INHALER 6GM INH SCH ×2 (07:25→20:08)
[2022-06-27] MEDS: INSULIN LISPRO (NovoLOG) PER UNIT SC SCH ×4 (07:49→19:51)
[2022-06-27] MEDS: ENOXAPARIN 40MG/0.4ML SYRINGE (J1650 PER 10MG) SC SCH (07:51)
[2022-06-27] MEDS: POTASSIUM CHLORIDE 10MEQ SR TABLET PO SCH ×2 (07:52→20:17)
[2022-06-27] MEDS: GABAPENTIN 300 MG CAP PO SCH ×3 (07:53→20:16)
[2022-06-27] MEDS: SITagliptin 50 MG TAB (JANUVIA) PO SCH (07:53)
[2022-06-27] MEDS: ROSUVASTATIN 10 MG TAB (CRESTOR) PO SCH (07:53)
[2022-06-27] MEDS: IBUPROFEN 400MG TAB PO PRN ×2 (07:53→17:47)
[2022-06-27] MEDS: K-PHOS NEUTRAL 250MG TABLET (SOD.PHOSPHATE/POT.PHOSPHATE) PO SCH ×2 (07:54→20:14)
[2022-06-27] MEDS: DULoxetine 30MG CAPSULE (CYMBALTA) PO SCH (07:55)
[2022-06-27] MEDS: FOLIC ACID 1MG TAB PO SCH (07:56)
[2022-06-27] MEDS: BACLOFEN 10 MG TAB PO SCH ×3 (07:56→20:14)
[2022-06-27] MEDS: LACTOBACILLUS ACIDOPHILUS CAP (BACID) PO SCH ×2 (07:56→17:39)
[2022-06-27] MEDS: PANTOPRAZOLE 40MG TAB (PROTONIX) PO SCH (07:56)
[2022-06-27] MEDS: LORATADINE 10 MG TAB PO SCH (07:57)
[2022-06-27] MEDS: MECLIZINE 12.5 MG TAB PO SCH ×3 (07:57→20:13)
[2022-06-27] MEDS: MAGNESIUM OXIDE 400MG TAB (MAG-OX) PO SCH ×2 (07:57→20:14)
[2022-06-27] MEDS: PROPRANOLOL 10 MG TAB PO SCH ×4 (07:59→20:13)
[2022-06-27] MEDS: INDAPAMIDE 1.25MG TABLET PO SCH (08:00)
[2022-06-27] MEDS: FLUTICASONE PROP 0.05% NASAL SPRAY 16 GM (FLONASE) NARES SCH ×2 (08:02→20:17)
[2022-06-27] MEDS: LIDOCAINE 5% (LIDODERM) PATCH TD SCH (08:03)
[2022-06-27] MEDS: POLYVINYL ALCOHOL OPHTH SOLN 15ML (LIQUITEARS) OU SCH ×3 (08:03→20:17)
[2022-06-27] MEDS: LIDOCAINE 5% (LIDODERM) PATCH TD PRN (08:04)
[2022-06-27] MEDS: NYSTATIN 100,000 UNITS/GM TOPICAL PWD 15GM TOP SCH ×2 (08:05→20:17)
[2022-06-27] MEDS: SODIUM CHLORIDE NASAL 0.65% SPRAY BTL (OCEAN) SCH ×3 (08:06→20:17)
[2022-06-27] MEDS: REMEDY PHYTOPLEX Z-GUARD PASTE 113GM TUBE (FROM STOREROOM PRODUCT) TOP SCH ×3 (08:06→20:18)
[2022-06-27] MEDS: DICLOFENAC EPOLAMINE 1.3% PATCH TOP SCH ×2 (08:06→20:18)
[2022-06-27] MEDS: METAMUCIL (PSYLLIUM) PACKET PO SCH (09:00)
[2022-06-27] MEDS: ESCITALOPRAM OXALATE 10 MG TAB (LEXAPRO) PO SCH (12:26)
[2022-06-27 14:00] VITALS: BP 132/63
[2022-06-27 20:00] VITALS: BP 126/66
[2022-06-27] MEDS: SENNA 8.6 MG TAB (SENOKOT) PO SCH (20:14)
[2022-06-27] MEDS: AMITRIPTYLINE 25MG TABLET PO SCH (20:16)
[2022-06-27] MEDS: RAMELTEON 8 MG TAB (ROZEREM) PO PRN (22:06)
[2022-06-27] MEDS: oxyCODONE 5MG TAB PO PRN (22:07)
[2022-06-28] MEDS: LEVOTHYROXINE 50MCG TABLET (0.05MG) PO SCH (05:17)
[2022-06-28] MEDS: IBUPROFEN 400MG TAB PO PRN (05:26)
[2022-06-28 06:00] VITALS: BP 133/81
[2022-06-28 07:09] LABS: BASO # 0.1 10^3/uL (0.0-0.2); EOS # 0.4 10^3/uL (0.0-0.5); EOS % 7.4 % (0.0-3.0); HEMATOCRIT 36.2 % (36.0-47.0); HEMOGLOBIN 11.4 g/dl (12.0-15.5); LYMPH # 2.4 10^3/uL (1.5-5.0); LYMPH % 48.3 % (24.0-44.0); MEAN CORPUSCULAR HEMOGLOBIN 30.5 pg (27.0-33.0); MEAN CORPUSCULAR HGB CONC 31.5 g/dl (32.0-36.5); MEAN CORPUSCULAR VOLUME 96.8 fl (80.0-96.0); MONO # 0.3 10^3/uL (0.0-0.8); MONO % 6.2 % (2.0-8.0); NEUTROPHILS # 1.9 10^3/uL (1.5-8.5); NEUTROPHILS % 36.9 % (36.0-66.0); PLATELET COUNT, AUTOMATED 363 10^3/uL (150-450); RED BLOOD COUNT 3.74 10^6/uL (4.00-5.40)
[2022-06-28] MEDS: COMBIVENT RESPIMAT 100-20MCG INHALER 4GM INH SCH ×3 (07:22→20:04)
[2022-06-28] MEDS: SYMBICORT 160/4.5MCG INHALER 6GM INH SCH ×2 (07:22→20:04)
[2022-06-28 07:33] LABS: BLOOD UREA NITROGEN 13 MG/DL (9-23); CALCIUM LEVEL 8.5 MG/DL (8.3-10.6); CARBON DIOXIDE LEVEL 29 MMOL/L (20-31); CHLORIDE LEVEL 106 MMOL/L (98-107); CREATININE FOR GFR 0.56 MG/DL (0.55-1.30); GLOMERULAR FILTRATION RATE > 60.0 (>45); GLUCOSE, FASTING 150 MG/DL (74-106); POTASSIUM SERUM 4.4 MMOL/L (3.5-5.1); SODIUM LEVEL 139 MMOL/L (136-145)
[2022-06-28] MEDS: METAMUCIL (PSYLLIUM) PACKET PO SCH (09:00)
[2022-06-28] MEDS: REMEDY PHYTOPLEX Z-GUARD PASTE 113GM TUBE (FROM STOREROOM PRODUCT) TOP SCH ×3 (09:00→20:13)
[2022-06-28] MEDS: DICLOFENAC EPOLAMINE 1.3% PATCH TOP SCH ×2 (09:15→20:08)
[2022-06-28] MEDS: LIDOCAINE 5% (LIDODERM) PATCH TD SCH (09:15)
[2022-06-28] MEDS: PROPRANOLOL 10 MG TAB PO SCH ×3 (09:16→20:11)
[2022-06-28] MEDS: DULoxetine 30MG CAPSULE (CYMBALTA) PO SCH (09:16)
[2022-06-28] MEDS: SITagliptin 50 MG TAB (JANUVIA) PO SCH (09:16)
[2022-06-28] MEDS: MECLIZINE 12.5 MG TAB PO SCH ×3 (09:16→20:11)
[2022-06-28] MEDS: BACLOFEN 10 MG TAB PO SCH ×3 (09:16→20:09)
[2022-06-28] MEDS: LORATADINE 10 MG TAB PO SCH (09:16)
[2022-06-28] MEDS: ROSUVASTATIN 10 MG TAB (CRESTOR) PO SCH (09:17)
[2022-06-28] MEDS: LACTOBACILLUS ACIDOPHILUS CAP (BACID) PO SCH ×2 (09:17→18:13)
[2022-06-28] MEDS: K-PHOS NEUTRAL 250MG TABLET (SOD.PHOSPHATE/POT.PHOSPHATE) PO SCH ×2 (09:17→20:09)
[2022-06-28] MEDS: INDAPAMIDE 1.25MG TABLET PO SCH (09:17)
[2022-06-28] MEDS: MAGNESIUM OXIDE 400MG TAB (MAG-OX) PO SCH ×2 (09:17→20:09)
[2022-06-28] MEDS: PANTOPRAZOLE 40MG TAB (PROTONIX) PO SCH (09:17)
[2022-06-28] MEDS: INSULIN LISPRO (NovoLOG) PER UNIT SC SCH ×4 (09:18→20:12)
[2022-06-28] MEDS: FOLIC ACID 1MG TAB PO SCH (09:18)
[2022-06-28] MEDS: POTASSIUM CHLORIDE 10MEQ SR TABLET PO SCH ×2 (09:18→20:09)
[2022-06-28] MEDS: GABAPENTIN 300 MG CAP PO SCH ×3 (09:18→20:08)
[2022-06-28] MEDS: SODIUM CHLORIDE NASAL 0.65% SPRAY BTL (OCEAN) SCH ×3 (09:19→20:12)
[2022-06-28] MEDS: FLUTICASONE PROP 0.05% NASAL SPRAY 16 GM (FLONASE) NARES SCH ×2 (09:19→20:12)
[2022-06-28] MEDS: POLYVINYL ALCOHOL OPHTH SOLN 15ML (LIQUITEARS) OU SCH ×3 (09:20→20:12)
[2022-06-28] MEDS: NYSTATIN 100,000 UNITS/GM TOPICAL PWD 15GM TOP SCH ×2 (09:20→20:13)
[2022-06-28] MEDS: ENOXAPARIN 40MG/0.4ML SYRINGE (J1650 PER 10MG) SC SCH (09:25)
[2022-06-28] MEDS: ESCITALOPRAM OXALATE 10 MG TAB (LEXAPRO) PO SCH (12:57)
[2022-06-28 14:00] VITALS: BP 114/71
[2022-06-28 20:00] VITALS: BP 106/59
[2022-06-28] MEDS: AMITRIPTYLINE 25MG TABLET PO SCH (20:09)
[2022-06-28] MEDS: SENNA 8.6 MG TAB (SENOKOT) PO SCH (20:11)
[2022-06-28] MEDS: RAMELTEON 8 MG TAB (ROZEREM) PO PRN (20:27)
[2022-06-28] MEDS: oxyCODONE 5MG TAB PO PRN (20:28)
[2022-06-29] MEDS: LEVOTHYROXINE 50MCG TABLET (0.05MG) PO SCH (05:24)
[2022-06-29 06:00] VITALS: BP 92/56
[2022-06-29 06:24] VITALS: BP 116/73
[2022-06-29] MEDS: SYMBICORT 160/4.5MCG INHALER 6GM INH SCH ×2 (07:08→20:26)
[2022-06-29] MEDS: COMBIVENT RESPIMAT 100-20MCG INHALER 4GM INH SCH ×3 (07:08→20:25)
[2022-06-29] MEDS: K-PHOS NEUTRAL 250MG TABLET (SOD.PHOSPHATE/POT.PHOSPHATE) PO SCH ×2 (07:51→21:51)
[2022-06-29] MEDS: MAGNESIUM OXIDE 400MG TAB (MAG-OX) PO SCH ×2 (07:51→21:51)
[2022-06-29] MEDS: PROPRANOLOL 10 MG TAB PO SCH ×3 (07:51→21:55)
[2022-06-29] MEDS: MECLIZINE 12.5 MG TAB PO SCH ×3 (07:51→21:52)
[2022-06-29] MEDS: DULoxetine 30MG CAPSULE (CYMBALTA) PO SCH (07:52)
[2022-06-29] MEDS: LORATADINE 10 MG TAB PO SCH (07:52)
[2022-06-29] MEDS: FOLIC ACID 1MG TAB PO SCH (07:52)
[2022-06-29] MEDS: INDAPAMIDE 1.25MG TABLET PO SCH (07:52)
[2022-06-29] MEDS: GABAPENTIN 300 MG CAP PO SCH ×3 (07:52→21:56)
[2022-06-29] MEDS: PANTOPRAZOLE 40MG TAB (PROTONIX) PO SCH (07:52)
[2022-06-29] MEDS: ROSUVASTATIN 10 MG TAB (CRESTOR) PO SCH (07:53)
[2022-06-29] MEDS: LACTOBACILLUS ACIDOPHILUS CAP (BACID) PO SCH ×2 (07:53→18:27)
[2022-06-29] MEDS: BACLOFEN 10 MG TAB PO SCH ×3 (07:53→21:51)
[2022-06-29] MEDS: SITagliptin 50 MG TAB (JANUVIA) PO SCH (07:53)
[2022-06-29] MEDS: POTASSIUM CHLORIDE 10MEQ SR TABLET PO SCH ×2 (07:54→21:51)
[2022-06-29] MEDS: SODIUM CHLORIDE NASAL 0.65% SPRAY BTL (OCEAN) SCH ×3 (07:54→21:57)
[2022-06-29] MEDS: FLUTICASONE PROP 0.05% NASAL SPRAY 16 GM (FLONASE) NARES SCH ×2 (07:55→21:55)
[2022-06-29] MEDS: LIDOCAINE 5% (LIDODERM) PATCH TD SCH (07:56)
[2022-06-29] MEDS: DICLOFENAC EPOLAMINE 1.3% PATCH TOP SCH ×2 (07:56→21:50)
[2022-06-29] MEDS: INSULIN LISPRO (NovoLOG) PER UNIT SC SCH ×4 (07:56→21:00)
[2022-06-29] MEDS: NYSTATIN 100,000 UNITS/GM TOPICAL PWD 15GM TOP SCH ×2 (07:57→21:56)
[2022-06-29] MEDS: POLYVINYL ALCOHOL OPHTH SOLN 15ML (LIQUITEARS) OU SCH ×3 (07:57→21:57)
[2022-06-29] MEDS: REMEDY PHYTOPLEX Z-GUARD PASTE 113GM TUBE (FROM STOREROOM PRODUCT) TOP SCH ×3 (07:57→21:58)
[2022-06-29] MEDS: METAMUCIL (PSYLLIUM) PACKET PO SCH (07:57)
[2022-06-29] MEDS: ESCITALOPRAM OXALATE 10 MG TAB (LEXAPRO) PO SCH (12:36)
[2022-06-29] MEDS: IBUPROFEN 400MG TAB PO PRN (12:39)
[2022-06-29 14:00] VITALS: BP 112/64
[2022-06-29] MEDS: CARBAMIDE PEROXIDE 6.5% OTIC SOLN 15ML AD SCH ×2 (16:50→21:58)
[2022-06-29 20:00] VITALS: BP 100/55
[2022-06-29] MEDS: SENNA 8.6 MG TAB (SENOKOT) PO SCH (21:51)
[2022-06-29] MEDS: AMITRIPTYLINE 25MG TABLET PO SCH (21:51)
[2022-06-29] MEDS: RAMELTEON 8 MG TAB (ROZEREM) PO PRN (21:57)
[2022-06-29] MEDS: oxyCODONE 5MG TAB PO PRN (21:57)
[2022-06-30] MEDS: LEVOTHYROXINE 50MCG TABLET (0.05MG) PO SCH (05:55)
[2022-06-30 06:00] VITALS: BP 106/62
[2022-06-30] MEDS: SYMBICORT 160/4.5MCG INHALER 6GM INH SCH (08:22)
[2022-06-30] MEDS: COMBIVENT RESPIMAT 100-20MCG INHALER 4GM INH SCH ×2 (08:22→13:36)
[2022-06-30 09:00] VITALS: BP 106/62
[2022-06-30] MEDS: REMEDY PHYTOPLEX Z-GUARD PASTE 113GM TUBE (FROM STOREROOM PRODUCT) TOP SCH (09:00)
[2022-06-30] MEDS: METAMUCIL (PSYLLIUM) PACKET PO SCH (09:00)
[2022-06-30] MEDS: INDAPAMIDE 1.25MG TABLET PO SCH (09:00)
[2022-06-30] MEDS: PROPRANOLOL 10 MG TAB PO SCH (09:00)
[2022-06-30] MEDS: POLYVINYL ALCOHOL OPHTH SOLN 15ML (LIQUITEARS) OU SCH (09:00)
[2022-06-30] MEDS: INSULIN LISPRO (NovoLOG) PER UNIT SC SCH ×2 (09:32→12:25)
[2022-06-30] MEDS: LACTOBACILLUS ACIDOPHILUS CAP (BACID) PO SCH (09:33)
[2022-06-30] MEDS: BACLOFEN 10 MG TAB PO SCH (09:33)
[2022-06-30] MEDS: FOLIC ACID 1MG TAB PO SCH (09:33)
[2022-06-30] MEDS: SITagliptin 50 MG TAB (JANUVIA) PO SCH (09:33)
[2022-06-30] MEDS: DULoxetine 30MG CAPSULE (CYMBALTA) PO SCH (09:33)
[2022-06-30] MEDS: ROSUVASTATIN 10 MG TAB (CRESTOR) PO SCH (09:33)
[2022-06-30] MEDS: K-PHOS NEUTRAL 250MG TABLET (SOD.PHOSPHATE/POT.PHOSPHATE) PO SCH (09:33)
[2022-06-30] MEDS: MECLIZINE 12.5 MG TAB PO SCH (09:34)
[2022-06-30] MEDS: PANTOPRAZOLE 40MG TAB (PROTONIX) PO SCH (09:34)
[2022-06-30] MEDS: GABAPENTIN 300 MG CAP PO SCH ×2 (09:34→12:24)
[2022-06-30] MEDS: LORATADINE 10 MG TAB PO SCH (09:34)
[2022-06-30] MEDS: MAGNESIUM OXIDE 400MG TAB (MAG-OX) PO SCH (09:34)
[2022-06-30] MEDS: POTASSIUM CHLORIDE 10MEQ SR TABLET PO SCH (09:34)
[2022-06-30] MEDS: SODIUM CHLORIDE NASAL 0.65% SPRAY BTL (OCEAN) SCH (09:38)
[2022-06-30] MEDS: FLUTICASONE PROP 0.05% NASAL SPRAY 16 GM (FLONASE) NARES SCH (09:39)
[2022-06-30] MEDS: CARBAMIDE PEROXIDE 6.5% OTIC SOLN 15ML AD SCH (09:40)
[2022-06-30] MEDS: NYSTATIN 100,000 UNITS/GM TOPICAL PWD 15GM TOP SCH (09:41)
[2022-06-30] MEDS: DICLOFENAC EPOLAMINE 1.3% PATCH TOP SCH (09:42)
[2022-06-30] MEDS: LIDOCAINE 5% (LIDODERM) PATCH TD SCH (09:44)
[2022-06-30] MEDS ORDERED: CYMB1CAP5 PO (09:45)
[2022-06-30] MEDS ORDERED: ROSU40TA4 PO (09:45)
[2022-06-30] MEDS ORDERED: MECL-136 PO (09:45)
[2022-06-30] MEDS ORDERED: POTA-136 PO (09:45)
[2022-06-30] MEDS ORDERED: SYNT50TA PO (09:45)
[2022-06-30] MEDS ORDERED: INDA25TAB PO (09:45)
[2022-06-30] MEDS ORDERED: GABA600T4 PO (09:45)
[2022-06-30] MEDS ORDERED: AMIT25TA17 PO (09:45)
[2022-06-30] MEDS ORDERED: ALBU6.7H6 INH (09:45)
[2022-06-30] MEDS ORDERED: BACL10TA2 PO (09:45)
[2022-06-30] MEDS ORDERED: SITA50TAB PO (09:45)
[2022-06-30] MEDS ORDERED: OXYC-517 PO (09:45)
[2022-06-30] MEDS ORDERED: K-PHTAB2 PO (09:45)
[2022-06-30] MEDS ORDERED: LEXA1TAB2 PO (09:45)
[2022-06-30] MEDS ORDERED: PANT40TA29 PO (09:45)
[2022-06-30] MEDS ORDERED: SYMB16INH INH (09:45)
[2022-06-30] MEDS: ESCITALOPRAM OXALATE 10 MG TAB (LEXAPRO) PO SCH (12:24)
[2022-06-30 14:00] VITALS: BP 114/69
== END 2022-06-30 15:35 | disposition home or self-care (01) | DRG 949 ==
LOC: M PM&R 13:16
PROVIDERS: ADMIT Physical Medicine & Rehabilitation; ATTEND Physical Medicine & Rehabilitation
DX: S06.5XAD Traumatic subdural hemorrhage with loss of consciousness status unknown, subsequent encounter (principal); G93.41 Metabolic encephalopathy; N39.0 Urinary tract infection, site not specified; H81.10 Benign paroxysmal vertigo, unspecified ear; M79.7 Fibromyalgia; J45.909 Unspecified asthma, uncomplicated; I10 Essential (primary) hypertension; E11.65 Type 2 diabetes mellitus with hyperglycemia; F32.A Depression, unspecified; E78.5 Hyperlipidemia, unspecified; E03.9 Hypothyroidism, unspecified; M54.50 Low back pain, unspecified; F41.9 Anxiety disorder, unspecified; D64.9 Anemia, unspecified; G47.00 Insomnia, unspecified; E87.6 Hypokalemia; K21.9 Gastro-esophageal reflux disease without esophagitis; M48.02 Spinal stenosis, cervical region; Z74.09 Other reduced mobility; Z74.1 Need for assistance with personal care; Z79.4 Long term (current) use of insulin; Z79.890 Hormone replacement therapy; Z79.899 Other long term (current) drug therapy; Z88.2 Allergy status to sulfonamides; Z88.8 Allergy status to other drugs, medicaments and biological substances; Z91.018 Allergy to other foods

== ENCOUNTER → 2022-08-09 | Outpatient (REF) | payer MEDICARE, MEDICAID ==
[~2022-08-09] MED LIST changes: +BISA10SU27 PR; +ENOX40IN3 SC; +ESTR0.1C5 PV; +INSUHUMDS SC; +K-PHTAB2 PO; +LEXA1TAB2 PO; +LIDO1PAD TOP; +MECL-136 PO; +OXYC-517 PO; +PANT40TA29 PO; +REFR0.1D OU; +SYMB16INH INH
[2022-08-09 18:43] LABS: BASO # 0.1 10^3/uL (0.0-0.2); BASO % 0.9 % (0.0-1.0); EOS # 0.3 10^3/uL (0.0-0.5); EOS % 4.1 % (0.0-3.0); HEMATOCRIT 40.5 % (36.0-47.0); HEMOGLOBIN 13.1 g/dl (12.0-15.5); LYMPH # 2.7 10^3/uL (1.5-5.0); LYMPH % 41.9 % (24.0-44.0); MEAN CORPUSCULAR HEMOGLOBIN 30.3 pg (27.0-33.0); MEAN CORPUSCULAR HGB CONC 32.3 g/dl (32.0-36.5); MEAN CORPUSCULAR VOLUME 93.8 fl (80.0-96.0); MONO # 0.4 10^3/uL (0.0-0.8); MONO % 6.1 % (2.0-8.0); NEUTROPHILS # 3.1 10^3/uL (1.5-8.5); NEUTROPHILS % 46.7 % (36.0-66.0); PLATELET COUNT, AUTOMATED 258 10^3/uL (150-450); RED BLOOD COUNT 4.32 10^6/uL (4.00-5.40); WHITE BLOOD COUNT 6.5 10^3/uL (4.0-10.0)
[2022-08-09 19:09] LABS: ALBUMIN 3.9 G/DL (3.2-5.2); ALKALINE PHOSPHATASE 94 U/L (46-116); ALT/SGPT 15 U/L (7.0-40); AST/SGOT 14 U/L (<34); BILIRUBIN,TOTAL 1.4 MG/DL (0.3-1.2); BLOOD UREA NITROGEN 11 MG/DL (9-23); CALCIUM LEVEL 9.7 MG/DL (8.3-10.6); CARBON DIOXIDE LEVEL 31 MMOL/L (20-31); CHLORIDE LEVEL 103 MMOL/L (98-107); CREATININE FOR GFR 0.58 MG/DL (0.55-1.30); GLOMERULAR FILTRATION RATE > 60.0 (>45); GLUCOSE, FASTING 151 MG/DL (74-106); MAGNESIUM LEVEL 1.8 MG/DL (1.8-2.4); POTASSIUM SERUM 3.8 MMOL/L (3.5-5.1); SODIUM LEVEL 140 MMOL/L (136-145); TOTAL PROTEIN 6.8 G/DL (5.7-8.2)
== END ==
LOC: M SFHCPLAZ 16:15
PROVIDERS: ATTEND Family Medicine
DX: G89.4 Chronic pain syndrome (principal); Z79.899 Other long term (current) drug therapy

== ENCOUNTER → 2022-09-14 | Outpatient (CLI) | payer MEDICARE, OTHER ==
[~2022-09-14] MED LIST changes: -AMIT25TA17 PO; +AMIT25TA19 PO; +DICL100G10 TOP; -DICL1GEL3 TOP; -GABA-283 PO; +GABA-284 PO; -POTA10CA33 PO; +POTA10CA60 PO
== END ==
LOC: M PLALAB 16:09
PROVIDERS: ATTEND Nurse Practitioner Family
DX: Z12.72 Encounter for screening for malignant neoplasm of vagina (principal); R87.625 Unsatisfactory cytologic smear of vagina

== ENCOUNTER → 2022-09-14 | Outpatient (CLI) | payer MEDICARE, OTHER | LOC: M WHC 14:22 | PROVIDERS: ATTEND Nurse Practitioner Family | DX: Z12.31 Encounter for screening mammogram for malignant neoplasm of breast (principal); R92.8 Other abnormal and inconclusive findings on diagnostic imaging of breast ==

== ENCOUNTER → 2022-09-29 | Outpatient (CLI) | payer MEDICARE ==
[~2022-09-29] MED LIST changes: +AMIT25TA17 PO; -AMIT25TA19 PO; -DICL100G10 TOP; +DICL1GEL3 TOP; +GABA-283 PO; -GABA-284 PO
== END ==
LOC: M WHC 10:35
PROVIDERS: ATTEND Nurse Practitioner Family
DX: Z12.31 Encounter for screening mammogram for malignant neoplasm of breast (principal); N64.9 Disorder of breast, unspecified
CPT/HCPCS: 77065; G0279

== ENCOUNTER → 2023-02-02 | Outpatient (CLI) | payer MEDICARE ==
[~2023-02-02] MED LIST changes: -AMIT25TA17 PO; +AMIT25TA19 PO; +CEFD1CAP9 PO; -CEFD300C41 PO; +CELE0.09 PO; -CELE1CAP9 PO; +DICL100G10 TOP; -DICL1GEL3 TOP; -GABA-283 PO; +GABA-284 PO
[2023-02-02 16:00] LABS: BASO # 0.1 10^3/uL (0.0-0.2); BASO % 1.1 % (0.0-1.0); EOS # 0.3 10^3/uL (0.0-0.5); EOS % 5.2 % (0.0-3.0); HEMATOCRIT 37.8 % (36.0-47.0); HEMOGLOBIN 12.5 g/dl (12.0-15.5); LYMPH # 3.1 10^3/uL (1.5-5.0); LYMPH % 47.3 % (24.0-44.0); MEAN CORPUSCULAR HEMOGLOBIN 31.2 pg (27.0-33.0); MEAN CORPUSCULAR HGB CONC 33.1 g/dl (32.0-36.5); MEAN CORPUSCULAR VOLUME 94.3 fl (80.0-96.0); MONO # 0.5 10^3/uL (0.0-0.8); MONO % 7.6 % (2.0-8.0); NEUTROPHILS # 2.5 10^3/uL (1.5-8.5); NEUTROPHILS % 38.5 % (36.0-66.0); PLATELET COUNT, AUTOMATED 258 10^3/uL (150-450); RED BLOOD COUNT 4.01 10^6/uL (4.00-5.40); WHITE BLOOD COUNT 6.6 10^3/uL (4.0-10.0)
[2023-02-02 16:14] LABS: HEMOGLOBIN A1c 6.3 % (4.0-6.0)
[2023-02-02 16:32] LABS: ALBUMIN 3.7 G/DL (3.2-5.2); ALKALINE PHOSPHATASE 114 U/L (46-116); ALT/SGPT 46 U/L (7.0-40); AST/SGOT 50 U/L (<34); BILIRUBIN,TOTAL 1.1 MG/DL (0.3-1.2); BLOOD UREA NITROGEN 17 MG/DL (9-23); CALCIUM LEVEL 9.7 MG/DL (8.3-10.6); CARBON DIOXIDE LEVEL 24 MMOL/L (20-31); CHLORIDE LEVEL 102 MMOL/L (98-107); CREATININE FOR GFR 0.65 MG/DL (0.55-1.30); FERRITIN 85.6 NG/ML (7.3-270.7); FREE T4 1.07 NG/DL (0.89-1.76); GLOMERULAR FILTRATION RATE > 60.0 (>45); GLUCOSE, FASTING 103 MG/DL (74-106); MAGNESIUM LEVEL 1.6 MG/DL (1.8-2.4); POTASSIUM SERUM 4.2 MMOL/L (3.5-5.1); SODIUM LEVEL 139 MMOL/L (136-145); TOTAL PROTEIN 6.6 G/DL (5.7-8.2)
[2023-02-02 16:33] LABS: THYROID STIMULATING HORMONE 6.204 uIU/ML (0.55-4.78); TOTAL 25(OH) VITAMIN D 106.5 NG/ML (20.0-100.0)
[2023-02-02 16:34] LABS: VITAMIN B12 LEVEL 533 PG/ML (211-911)
[2023-02-02 16:35] LABS: FOLATE > 24.00 NG/ML (>5.4)
== END ==
LOC: M PLALAB 12:38
PROVIDERS: ATTEND Physician Assistant
DX: E55.9 Vitamin D deficiency, unspecified (principal); E11.9 Type 2 diabetes mellitus without complications; I10 Essential (primary) hypertension; E03.9 Hypothyroidism, unspecified; E53.8 Deficiency of other specified B group vitamins; D50.9 Iron deficiency anemia, unspecified; M19.011 Primary osteoarthritis, right shoulder

== ENCOUNTER → 2023-03-16 | Outpatient (REF) | payer MEDICARE | LOC: M SFHCWAGY 16:33 | PROVIDERS: ATTEND Nurse Practitioner Family | DX: Z12.72 Encounter for screening for malignant neoplasm of vagina (principal); R87.615 Unsatisfactory cytologic smear of cervix ==

== ENCOUNTER → 2023-03-21 | Outpatient (REF) | payer MEDICARE | LOC: M SFHCPLAZ 12:14 | PROVIDERS: ATTEND Family Medicine | DX: Z53.9 Procedure and treatment not carried out, unspecified reason (principal) ==

== ENCOUNTER → 2023-04-04 | Outpatient (CLI) | payer MEDICARE ==
[2023-04-04 18:07] LABS: BASO # 0.1 10^3/uL (0.0-0.2); BASO % 1.1 % (0.0-1.0); EOS # 0.5 10^3/uL (0.0-0.5); EOS % 8.6 % (0.0-3.0); HEMOGLOBIN 11.1 g/dl (12.0-15.5); LYMPH # 2.4 10^3/uL (1.5-5.0); LYMPH % 45.1 % (24.0-44.0); MEAN CORPUSCULAR HEMOGLOBIN 31.9 pg (27.0-33.0); MEAN CORPUSCULAR HGB CONC 32.6 g/dl (32.0-36.5); MEAN CORPUSCULAR VOLUME 97.7 fl (80.0-96.0); MONO # 0.3 10^3/uL (0.0-0.8); MONO % 6.4 % (2.0-8.0); NEUTROPHILS % 38.4 % (36.0-66.0); PLATELET COUNT, AUTOMATED 226 10^3/uL (150-450); RED BLOOD COUNT 3.48 10^6/uL (4.00-5.40); WHITE BLOOD COUNT 5.3 10^3/uL (4.0-10.0)
[2023-04-04 18:18] LABS: ALBUMIN 3.6 G/DL (3.2-5.2); ALKALINE PHOSPHATASE 122 U/L (46-116); ALT/SGPT 55 U/L (7.0-40); AST/SGOT 49 U/L (<34); BILIRUBIN,TOTAL 1.2 MG/DL (0.3-1.2); BLOOD UREA NITROGEN 14 MG/DL (9-23); CALCIUM LEVEL 8.7 MG/DL (8.3-10.6); CARBON DIOXIDE LEVEL 28 MMOL/L (20-31); CHLORIDE LEVEL 107 MMOL/L (98-107); CREATININE FOR GFR 0.54 MG/DL (0.55-1.30); GLOMERULAR FILTRATION RATE > 60.0 (>45); GLUCOSE, FASTING 155 MG/DL (74-106); POTASSIUM SERUM 3.9 MMOL/L (3.5-5.1); SODIUM LEVEL 139 MMOL/L (136-145); THYROID STIMULATING HORMONE 1.127 uIU/ML (0.55-4.78); TOTAL PROTEIN 6.3 G/DL (5.7-8.2)
[2023-04-04 18:19] LABS: PTH INTACT 85.7 PG/ML (18.5-88.0)
[2023-04-04 18:20] LABS: FERRITIN 41.8 NG/ML (7.3-270.7); FREE T4 1.05 NG/DL (0.89-1.76)
== END ==
LOC: M PLALAB 15:42
PROVIDERS: ATTEND Family Medicine
DX: E55.9 Vitamin D deficiency, unspecified (principal); E11.9 Type 2 diabetes mellitus without complications; D50.9 Iron deficiency anemia, unspecified; E03.9 Hypothyroidism, unspecified

== ENCOUNTER 2023-04-05 15:44 | Outpatient (CLI) | payer MEDICARE, MEDICAID ==
[2023-04-05 16:00] VITALS: BP 115/70; O2SAT 95
[2023-04-05] MEDS ORDERED: ZOLEDRONIC ACID 5 MG in IV 1 EA IV ONE (16:00)
[2023-04-05 16:38] VITALS: BP 126/74; O2SAT 93
== END 2023-04-05 16:35 | disposition home or self-care (01) ==
LOC: M INFU 15:44
PROVIDERS: ATTEND Family Medicine
DX: M81.0 Age-related osteoporosis without current pathological fracture (principal); Z88.2 Allergy status to sulfonamides; Z88.8 Allergy status to other drugs, medicaments and biological substances
CPT/HCPCS: 96413; J3489

== ENCOUNTER → 2023-05-25 | Outpatient (CLI) | payer MEDICARE, MEDICAID ==
[~2023-05-25] MED LIST changes: +KLON0.5T8 PO; -MIRA1POW3 PO; +MIRA33506 PO; +PROHANCE 279.3MG/ML 15ML VIAL ONE
== END ==
LOC: M PLAIMG 13:45
PROVIDERS: ATTEND Nurse Practitioner Family
DX: Z12.31 Encounter for screening mammogram for malignant neoplasm of breast (principal); N64.89 Other specified disorders of breast
CPT/HCPCS: A9576; C8908

== ENCOUNTER → 2023-07-22 | Outpatient (REF) | payer MEDICARE, MEDICAID ==
[~2023-07-22] MED LIST changes: +D200CAP3 PO; +DULO1CAP6 PO; +ESOM0.1C PO; +INDA1.253 PO; +INDA2.5T2 PO; -INDA25TAB PO; +MULTTAB61 PO; +MUPI30CR TOP; +NITR-67 PO; +POTA-151 PO; -POTA10CA60 PO; +POTA10CA70 PO; -PROHANCE 279.3MG/ML 15ML VIAL ONE; +RAME8TAB2 PO; -ROSU40TA4 PO; +ROSU40TA63 PO; +SENN-52 PO; +VENTAER INH
== END ==
LOC: M SFHCPLAZ 10:40
PROVIDERS: ATTEND Family Medicine
DX: D50.9 Iron deficiency anemia, unspecified (principal); E55.9 Vitamin D deficiency, unspecified; E11.9 Type 2 diabetes mellitus without complications; K76.0 Fatty (change of) liver, not elsewhere classified

== ENCOUNTER → 2023-08-17 | Outpatient (CLI) | payer MEDICARE, MEDICAID ==
[~2023-08-17] MED LIST changes: +CORT10TA PO; -ESOM0.1C PO; +ESOM20CA2 PO; +PRED10TA2 PO
[2023-08-17 15:32] LABS: BASO % 0.8 % (0.0-1.0); EOS # 0.2 10^3/uL (0.0-0.5); HEMATOCRIT 33.1 % (36.0-47.0); HEMOGLOBIN 10.4 g/dl (12.0-15.5); LYMPH # 2.1 10^3/uL (1.5-5.0); LYMPH % 43.9 % (24.0-44.0); MEAN CORPUSCULAR HGB CONC 31.4 g/dl (32.0-36.5); MEAN CORPUSCULAR VOLUME 98.8 fl (80.0-96.0); MONO # 0.4 10^3/uL (0.0-0.8); MONO % 7.8 % (2.0-8.0); NEUTROPHILS # 2.1 10^3/uL (1.5-8.5); NEUTROPHILS % 43.5 % (36.0-66.0); PLATELET COUNT, AUTOMATED 220 10^3/uL (150-450); RED BLOOD COUNT 3.35 10^6/uL (4.00-5.40); WHITE BLOOD COUNT 4.7 10^3/uL (4.0-10.0)
[2023-08-17 16:06] LABS: ALBUMIN 3.4 G/DL (3.2-5.2); ALKALINE PHOSPHATASE 89 U/L (46-116); ALT/SGPT 29 U/L (7.0-40); AST/SGOT 19 U/L (<34); BILIRUBIN,TOTAL 1.6 MG/DL (0.3-1.2); BLOOD UREA NITROGEN 13 MG/DL (9-23); CALCIUM LEVEL 8.7 MG/DL (8.3-10.6); CARBON DIOXIDE LEVEL 28 MMOL/L (20-31); CHLORIDE LEVEL 109 MMOL/L (98-107); CHOLESTEROL LEVEL 105 MG/DL (<200); GLOMERULAR FILTRATION RATE > 60.0 (>45); GLUCOSE, FASTING 107 MG/DL (74-106); HDL CHOLESTEROL 55.1 MG/DL (>40); LDL CHOLESTEROL 36.1 MG/DL (<100); NON-HDL-C 49.9 MG/DL; POTASSIUM SERUM 3.9 MMOL/L (3.5-5.1); SODIUM LEVEL 143 MMOL/L (136-145); TRIGLYCERIDES LEVEL 69 MG/DL (<150)
[2023-08-17 16:09] LABS: FERRITIN 57.3 NG/ML (7.3-270.7)
[2023-08-17 16:26] LABS: HEMOGLOBIN A1c 6.2 % (4.0-6.0)
== END ==
LOC: M PLALAB 11:34
PROVIDERS: ATTEND Family Medicine
DX: D50.9 Iron deficiency anemia, unspecified (principal); E78.00 Pure hypercholesterolemia, unspecified

== ENCOUNTER → 2023-08-19 | Outpatient (CLI) | payer MEDICARE, MEDICAID | LOC: M SOG 14:28 | PROVIDERS: ATTEND Physician Assistant | DX: S52.502A Unspecified fracture of the lower end of left radius, initial encounter for closed fracture (principal); Y93.9 Activity, unspecified; Y92.9 Unspecified place or not applicable ==

== ENCOUNTER → 2023-08-24 | Outpatient (CLI) | payer MEDICARE, MEDICAID | LOC: M PLALAB 11:50 | PROVIDERS: ATTEND Physician Assistant Medical | DX: R60.0 Localized edema (principal); I50.30 Unspecified diastolic (congestive) heart failure ==

== ENCOUNTER → 2023-08-26 | Outpatient (CLI) | payer MEDICARE, MEDICAID | LOC: M WHC 12:35 | PROVIDERS: ATTEND Physician Assistant Medical | DX: R60.0 Localized edema (principal) ==

== ENCOUNTER → 2023-09-05 | Outpatient (CLI) | payer MEDICARE, MEDICAID ==
[2023-09-05 15:47] LABS: BASO # 0.1 10^3/uL (0.0-0.2); BASO % 1.3 % (0.0-1.0); EOS # 0.5 10^3/uL (0.0-0.5); EOS % 11.1 % (0.0-3.0); HEMATOCRIT 35.6 % (36.0-47.0); HEMOGLOBIN 11.6 g/dl (12.0-15.5); MEAN CORPUSCULAR HEMOGLOBIN 31.5 pg (27.0-33.0); MEAN CORPUSCULAR HGB CONC 32.6 g/dl (32.0-36.5); MEAN CORPUSCULAR VOLUME 96.7 fl (80.0-96.0); MONO # 0.4 10^3/uL (0.0-0.8); MONO % 8.1 % (2.0-8.0); NEUTROPHILS # 1.7 10^3/uL (1.5-8.5); NEUTROPHILS % 36.3 % (36.0-66.0); PLATELET COUNT, AUTOMATED 246 10^3/uL (150-450); RED BLOOD COUNT 3.68 10^6/uL (4.00-5.40); WHITE BLOOD COUNT 4.6 10^3/uL (4.0-10.0)
[2023-09-05 15:51] LABS: APPEARANCE, URINE CLEAR (CLEAR); BACTERIA, URINE AUTO NEGATIVE (NEGATIVE); BILIRUBIN, URINE AUTO NEGATIVE (NEGATIVE); BLOOD, URINE BLOOD NEGATIVE (NEGATIVE); COLOR, URINE YELLOW (YELLOW); GLUCOSE, URINE (UA) AUTO NEGATIVE (NEGATIVE); KETONE, URINE AUTO NEGATIVE (NEGATIVE); LEUKOCYTE ESTERASE, URINE AUTO NEGATIVE (NEGATIVE); MUCUS, URINE SMALL (NEGATIVE); NITRITE, URINE AUTO NEGATIVE (NEGATIVE); PROTEIN, URINE AUTO NEGATIVE (NEGATIVE); RBC, URINE AUTO 0 /HPF (0-3); SPECIFIC GRAVITY URINE AUTO 1.019 (1.002-1.035); SQUAMOUS EPITHELIAL CELL UR AU 0 /HPF (0-6); UROBILINOGEN, URINE AUTO 0.2 mg/dL (0.0-2.0); WBC, URINE AUTO 0 /HPF (0-3)
[2023-09-05 16:11] LABS: ALBUMIN 3.8 G/DL (3.2-5.2); ALKALINE PHOSPHATASE 89 U/L (46-116); ALT/SGPT 112 U/L (7.0-40); AST/SGOT 108 U/L (<34); BILIRUBIN,TOTAL 1.4 MG/DL (0.3-1.2); BLOOD UREA NITROGEN 18 MG/DL (9-23); CALCIUM LEVEL 9.3 MG/DL (8.3-10.6); CARBON DIOXIDE LEVEL 30 MMOL/L (20-31); CHLORIDE LEVEL 103 MMOL/L (98-107); CREATININE FOR GFR 0.64 MG/DL (0.55-1.30); GLOMERULAR FILTRATION RATE > 60.0 (>45); GLUCOSE, FASTING 118 MG/DL (74-106); POTASSIUM SERUM 4.5 MMOL/L (3.5-5.1); SODIUM LEVEL 138 MMOL/L (136-145); TOTAL PROTEIN 6.3 G/DL (5.7-8.2)
== END ==
LOC: M PLALAB 12:12
PROVIDERS: ATTEND Physician Assistant Medical
DX: I95.89 Other hypotension (principal)

== ENCOUNTER → 2023-09-09 | Outpatient (CLI) | payer MEDICARE ==
[2023-09-09 13:36] LABS: PERCENT SATURATION 18.9 % (13.2-45.0)
== END ==
LOC: M PLALAB 11:13
PROVIDERS: ATTEND Physician Assistant
DX: D50.9 Iron deficiency anemia, unspecified (principal)

== ENCOUNTER → 2023-10-14 | Outpatient (CLI) | payer MEDICARE, MEDICAID | LOC: M LAB 15:36 | PROVIDERS: ATTEND Physician Assistant | DX: R61 Generalized hyperhidrosis (principal) ==

== ENCOUNTER → 2024-01-27 | Outpatient (CLI) | payer MEDICARE, MEDICAID ==
[~2024-01-27] MED LIST changes: -CYCL5TAB PO; +CYCL5TAB4 PO; +GABA-1172 PO; +GABA-1490 PO; +GABA-1635 PO; -GABA-282 PO; -GABA600T4 PO; -GABA800T4 PO; +NYST1POW3 TOP; -NYST1POW9 TOP; -ROSU40TA63 PO; +ROSU40TA81 PO
[2024-01-27 14:37] LABS: BASO # 0.1 10^3/uL (0.0-0.2); BASO % 1.2 % (0.0-1.0); EOS # 0.4 10^3/uL (0.0-0.5); EOS % 7.3 % (0.0-3.0); HEMATOCRIT 38.8 % (36.0-47.0); HEMOGLOBIN 12.5 g/dl (12.0-15.5); LYMPH # 2.1 10^3/uL (1.5-5.0); MEAN CORPUSCULAR HEMOGLOBIN 30.9 pg (27.0-33.0); MEAN CORPUSCULAR HGB CONC 32.2 g/dl (32.0-36.5); MEAN CORPUSCULAR VOLUME 95.8 fl (80.0-96.0); MONO # 0.3 10^3/uL (0.0-0.8); MONO % 6.2 % (2.0-8.0); NEUTROPHILS % 41.1 % (36.0-66.0); PLATELET COUNT, AUTOMATED 181 10^3/uL (150-450); RED BLOOD COUNT 4.05 10^6/uL (4.00-5.40); WHITE BLOOD COUNT 4.8 10^3/uL (4.0-10.0)
[2024-01-27 14:51] LABS: INR 0.9; PARTIAL THROMBOPLASTIN TIME 28.5 SECONDS (24.8-34.2); PROTHROMBIN TIME 12.4 SECONDS (12.5-14.5)
[2024-01-27 15:16] LABS: ALBUMIN 3.5 G/DL (3.2-5.2); ALKALINE PHOSPHATASE 120 U/L (35-104); ALT/SGPT 54 U/L (7.0-40); AST/SGOT 56 U/L (<34); BLOOD UREA NITROGEN 17 MG/DL (9-23); CALCIUM LEVEL 9.7 MG/DL (8.3-10.6); CARBON DIOXIDE LEVEL 28 MMOL/L (20-31); CHLORIDE LEVEL 103 MMOL/L (98-107); CREATININE FOR GFR 0.71 MG/DL (0.55-1.30); GLOMERULAR FILTRATION RATE > 60.0 (>45); GLUCOSE, FASTING 126 MG/DL (74-106); MAGNESIUM LEVEL 1.4 MG/DL (1.8-2.4); POTASSIUM SERUM 3.9 MMOL/L (3.5-5.1); SODIUM LEVEL 141 MMOL/L (136-145); TOTAL PROTEIN 6.6 G/DL (5.7-8.2)
[2024-01-27 15:18] LABS: FERRITIN 58.9 NG/ML (7.3-270.7)
[2024-01-27 15:19] LABS: THYROID STIMULATING HORMONE 2.985 uIU/ML (0.55-4.78)
[2024-01-27 15:42] LABS: HEMOGLOBIN A1c 6.3 % (4.0-6.0)
== END ==
LOC: M PLALAB 12:02
PROVIDERS: ATTEND Family Medicine
DX: K74.00 Hepatic fibrosis, unspecified (principal); D50.9 Iron deficiency anemia, unspecified; E55.9 Vitamin D deficiency, unspecified; E11.9 Type 2 diabetes mellitus without complications; I50.32 Chronic diastolic (congestive) heart failure; G89.4 Chronic pain syndrome

== ENCOUNTER → 2024-04-03 | Outpatient (REF) | payer MEDICARE, MEDICAID ==
[~2024-04-03] MED LIST changes: -ADV250INH INH; +ADVA1AER9 INH
== END ==
LOC: M SFHCPLAZ 09:29
PROVIDERS: ATTEND Family Medicine
DX: Z51.81 Encounter for therapeutic drug level monitoring (principal); Z53.9 Procedure and treatment not carried out, unspecified reason

== ENCOUNTER → 2024-04-06 | Outpatient (CLI) | payer MEDICARE, MEDICAID ==
[2024-04-06 13:00] LABS: HEMATOCRIT 36.9 % (36.0-47.0); HEMOGLOBIN 11.7 g/dl (12.0-15.5); MEAN CORPUSCULAR HGB CONC 31.7 g/dl (32.0-36.5); MEAN CORPUSCULAR VOLUME 97.6 fl (80.0-96.0); PLATELET COUNT, AUTOMATED 209 10^3/uL (150-450); RED BLOOD COUNT 3.78 10^6/uL (4.00-5.40); WHITE BLOOD COUNT 5.1 10^3/uL (4.0-10.0)
[2024-04-06 13:06] LABS: INR 0.89; PROTHROMBIN TIME 12.3 SECONDS (12.5-14.5)
[2024-04-06 13:07] LABS: ALBUMIN 3.8 G/DL (3.2-5.2); ALKALINE PHOSPHATASE 84 U/L (35-104); ALT/SGPT 24 U/L (7.0-40); AST/SGOT 26 U/L (<34); BILIRUBIN,TOTAL 1.2 MG/DL (0.3-1.2); BLOOD UREA NITROGEN 14 MG/DL (9-23); CALCIUM LEVEL 9.3 MG/DL (8.3-10.6); CARBON DIOXIDE LEVEL 28 MMOL/L (20-31); CHLORIDE LEVEL 108 MMOL/L (98-107); CREATININE FOR GFR 0.59 MG/DL (0.55-1.30); GLOMERULAR FILTRATION RATE > 60.0 (>45); GLUCOSE, FASTING 98 MG/DL (74-106); POTASSIUM SERUM 4.7 MMOL/L (3.5-5.1); SODIUM LEVEL 141 MMOL/L (136-145); TOTAL PROTEIN 6.9 G/DL (5.7-8.2)
== END ==
LOC: M PLALAB 11:16
PROVIDERS: ATTEND Family Medicine
DX: Z51.81 Encounter for therapeutic drug level monitoring (principal)

== ENCOUNTER 2024-04-09 14:08 | Outpatient (CLI) | payer MEDICARE, MEDICAID ==
[~2024-04-09] VITALS: Ht 167.6 cm; Wt 80.9 kg
[2024-04-09 14:10] VITALS: BP 128/74; O2SAT 95
[2024-04-09] MEDS: ZOLEDRONIC ACID 5 MG in IV 1 EA IV ONE (14:17)
[2024-04-09 15:00] VITALS: BP 118/70; O2SAT 99
== END 2024-04-09 15:00 ==
LOC: M INFU 14:08
PROVIDERS: ATTEND Family Medicine
DX: M81.0 Age-related osteoporosis without current pathological fracture (principal); Z88.8 Allergy status to other drugs, medicaments and biological substances; Z88.2 Allergy status to sulfonamides; Z91.018 Allergy to other foods
CPT/HCPCS: 96365; J3489

== ENCOUNTER 2024-04-24 10:09 | Emergency (ER) | payer MEDICARE, MEDICAID ==
[~2024-04-24] VITALS: Ht 167.6 cm; Wt 85.1 kg
[2024-04-24 13:55] VITALS: BP 108/57; TEMP 97.9; O2SAT 96
[2024-04-24] MEDS: ACETAMINOPHEN 325 MG TAB PO ONE (13:55)
[2024-04-25] MEDS ORDERED: CEFD300C PO (14:00)
[2024-04-25] MEDS ORDERED: PRED20TA PO (14:00)
== END 2024-04-24 14:38 | disposition home or self-care (01) ==
LOC: M ED 10:09
DX: S83.92XA Sprain of unspecified site of left knee, initial encounter (principal); M25.462 Effusion, left knee; Y92.410 Unspecified street and highway as the place of occurrence of the external cause; Y93.9 Activity, unspecified; Y99.9 Unspecified external cause status; W01.0XXA Fall on same level from slipping, tripping and stumbling without subsequent striking against object, initial encounter; E11.9 Type 2 diabetes mellitus without complications; I10 Essential (primary) hypertension; Z88.2 Allergy status to sulfonamides; Z88.8 Allergy status to other drugs, medicaments and biological substances; Z91.018 Allergy to other foods; Z79.51 Long term (current) use of inhaled steroids; Z79.2 Long term (current) use of antibiotics; Z79.4 Long term (current) use of insulin; Z79.84 Long term (current) use of oral hypoglycemic drugs; Z79.52 Long term (current) use of systemic steroids; Z79.899 Other long term (current) drug therapy

== ENCOUNTER 2024-04-25 09:43 | Emergency (ER) | payer MEDICARE, MEDICAID ==
[2024-04-25 10:54] LABS: VENOUS BASE EXCESS -2.1 (-2.0-2.0); VENOUS HCO3 22.7 MMOL/L (23.0-27.0); VENOUS O2 SATURATION 84.9 % (60.0-80.0); VENOUS PARTIAL PRESSURE CO2 39.2 mmHg (38.0-50.0); VENOUS PARTIAL PRESSURE O2 46.2 mmHg (30.0-50.0); VENOUS PH 7.381 UNITS (7.330-7.430); VENOUS STANDARD HCO3 22.4 MMOL/L; VENOUS TOTAL CO2 23.9 MMOL/L (24.0-28.0)
[2024-04-25] MEDS: IPRATROPIUM 0.5MG/ALBUTEROL 2.5MG INH SOL UD 3ML (DUONEB) NEB ONE (11:17)
[2024-04-25] MEDS: methylPREDNISolone 125MG 2ML VIAL IV ONE (11:17)
[2024-04-25] MEDS: ALBUTEROL SULFATE 2.5MG/0.5ML INH NEB SOLN INH ONE (11:17)
[2024-04-25 11:20] LABS: BASO % 0.6 % (0.0-1.0); EOS # 0.1 10^3/uL (0.0-0.5); EOS % 2.1 % (0.0-3.0); HEMATOCRIT 35.7 % (36.0-47.0); HEMOGLOBIN 11.6 g/dl (12.0-15.5); LYMPH % 17.7 % (24.0-44.0); MEAN CORPUSCULAR HEMOGLOBIN 31.3 pg (27.0-33.0); MEAN CORPUSCULAR HGB CONC 32.5 g/dl (32.0-36.5); MEAN CORPUSCULAR VOLUME 96.2 fl (80.0-96.0); MONO # 0.5 10^3/uL (0.0-0.8); MONO % 8.4 % (2.0-8.0); NEUTROPHILS # 3.8 10^3/uL (1.5-8.5); NEUTROPHILS % 70.8 % (36.0-66.0); PLATELET COUNT, AUTOMATED 196 10^3/uL (150-450); RED BLOOD COUNT 3.71 10^6/uL (4.00-5.40); WHITE BLOOD COUNT 5.4 10^3/uL (4.0-10.0)
[2024-04-25 11:32] LABS: INR 0.95
[2024-04-25] MEDS: ACETAMINOPHEN 325 MG TAB PO ONE (12:18)
[2024-04-25 12:21] LABS: CPK CREATINE PHOSPHOKINASE 184 U/L (34-145)
[2024-04-25 12:27] LABS: CK-MB VALUE MASS < 1.0 NG/ML (<3.6); MB/CK RELATIVE INDEX 0.54 (< OR =4)
[2024-04-25 12:28] LABS: THYROID STIMULATING HORMONE 7.559 uIU/ML (0.55-4.78)
[2024-04-25 12:30] LABS: ALBUMIN 3.4 G/DL (3.2-5.2); ALKALINE PHOSPHATASE 95 U/L (35-104); ALT/SGPT 43 U/L (7.0-40); AST/SGOT 41 U/L (<34); BILIRUBIN,DIRECT 0.4 MG/DL (<0.4); BILIRUBIN,TOTAL 1.1 MG/DL (0.3-1.2); BLOOD UREA NITROGEN 11 MG/DL (9-23); CALCIUM LEVEL 8.5 MG/DL (8.3-10.6); CARBON DIOXIDE LEVEL 22 MMOL/L (20-31); CREATININE FOR GFR 0.67 MG/DL (0.55-1.30); GLOMERULAR FILTRATION RATE > 60.0 (>45); GLUCOSE, FASTING 111 MG/DL (74-106); TOTAL PROTEIN 6.4 G/DL (5.7-8.2)
[2024-04-25 12:38] LABS: THYROXINE (T4) 5.3 UG/DL (4.5-10.9)
[2024-04-25] MEDS ORDERED: ISOVUE-370 76% 100ML VIAL As Ordered ONE (12:39)
[2024-04-25 12:47] LABS: POTASSIUM SERUM 3.9 MMOL/L (3.5-5.1)
[2024-04-25 12:56] LABS: CK-MB VALUE MASS 1.1 NG/ML (<3.6); MB/CK RELATIVE INDEX 0.64 (< OR =4)
[2024-04-25] MEDS ORDERED: CEFD300C PO (14:00)
[2024-04-25] MEDS ORDERED: PRED20TA PO (14:00)
[2024-04-25 14:14] VITALS: BP 104/61; TEMP 98.4; O2SAT 94
[2024-04-25] MEDS: CEFDINIR 300 MG CAP (OMNICEF) PO ONE (14:15)
== END 2024-04-25 14:20 | disposition home or self-care (01) ==
LOC: M ED 09:43
DX: J20.8 Acute bronchitis due to other specified organisms (principal); J44.1 Chronic obstructive pulmonary disease with (acute) exacerbation; I45.81 Long QT syndrome; I50.22 Chronic systolic (congestive) heart failure; I25.119 Atherosclerotic heart disease of native coronary artery with unspecified angina pectoris; E78.00 Pure hypercholesterolemia, unspecified; Z88.2 Allergy status to sulfonamides; Z88.8 Allergy status to other drugs, medicaments and biological substances; Z91.018 Allergy to other foods; Z79.51 Long term (current) use of inhaled steroids; Z79.2 Long term (current) use of antibiotics; Z79.4 Long term (current) use of insulin; Z79.84 Long term (current) use of oral hypoglycemic drugs; Z79.52 Long term (current) use of systemic steroids; Z79.899 Other long term (current) drug therapy; Z79.810 Long term (current) use of selective estrogen receptor modulators (SERMs)
CPT/HCPCS: 71046; 71275; 80047; 80048; 80051; 80076; 82550; 82553; 82803; 83605; 83880; 84436; 84443; 84484; 85025; 85610; 87040; 87486; 87581; 87633; 87798; 93005; 93971; 96374; 99284; J2919; Q9967

== ENCOUNTER 2024-05-09 09:36 | Emergency (ER) | payer MEDICARE, MEDICAID ==
[~2024-05-09] VITALS: Ht 167.6 cm; Wt 72.7 kg
[~2024-05-09 09:36] MED LIST changes: +CEFD300C PO; +PRED20TA PO
[2024-05-09] MEDS ORDERED: DARI25TA (09:59)
[2024-05-09 10:43] LABS: BASO # 0.1 10^3/uL (0.0-0.2); BASO % 0.7 % (0.0-1.0); EOS # 0.2 10^3/uL (0.0-0.5); EOS % 1.4 % (0.0-3.0); HEMATOCRIT 45.8 % (36.0-47.0); HEMOGLOBIN 16.1 g/dl (12.0-15.5); LYMPH # 3.8 10^3/uL (1.5-5.0); MEAN CORPUSCULAR HEMOGLOBIN 30.7 pg (27.0-33.0); MEAN CORPUSCULAR HGB CONC 35.2 g/dl (32.0-36.5); MEAN CORPUSCULAR VOLUME 87.4 fl (80.0-96.0); MONO # 1.1 10^3/uL (0.0-0.8); MONO % 9.9 % (2.0-8.0); NEUTROPHILS # 6.3 10^3/uL (1.5-8.5); NEUTROPHILS % 54.7 % (36.0-66.0); PLATELET COUNT, AUTOMATED 370 10^3/uL (150-450); RED BLOOD COUNT 5.24 10^6/uL (4.00-5.40); WHITE BLOOD COUNT 11.6 10^3/uL (4.0-10.0)
[2024-05-09] MEDS: NS (Normal Saline) 0.9% 1,000 ML IV ONE (10:46)
[2024-05-09 11:07] LABS: ALBUMIN 4.1 G/DL (3.2-5.2); BILIRUBIN,TOTAL 1.9 MG/DL (0.3-1.2); CREATININE FOR GFR 1.06 MG/DL (0.55-1.30); TOTAL PROTEIN 7.8 G/DL (5.7-8.2)
[2024-05-09 15:35] LABS: KETONE, URINE AUTO RFX 1+ mg/dL (NEGATIVE); LEUKOCYTE ESTERASE UR AUTO RFX NEGATIVE (NEGATIVE); MUCUS, URINE RFX SMALL (NEGATIVE); NITRITE, URINE AUTO RFX NEGATIVE (NEGATIVE); RBC, URINE AUTO RFX 5 /HPF (0-3); SQUAM EPITHELIAL CELL UR AURFX 0 /HPF (0-6); WBC, URINE AUTO RFX 3 /HPF (0-3)
[2024-05-09 16:24] VITALS: BP 106/59; TEMP 98.6; O2SAT 97
== END 2024-05-09 16:27 | disposition home or self-care (01) ==
LOC: EDBD 09:36 → M ED 09:36
DX: E86.0 Dehydration (principal); T88.7XXA Unspecified adverse effect of drug or medicament, initial encounter; I45.81 Long QT syndrome; I50.22 Chronic systolic (congestive) heart failure; E11.9 Type 2 diabetes mellitus without complications; D50.9 Iron deficiency anemia, unspecified; I11.0 Hypertensive heart disease with heart failure; E78.5 Hyperlipidemia, unspecified; J45.909 Unspecified asthma, uncomplicated; G47.33 Obstructive sleep apnea (adult) (pediatric); K21.9 Gastro-esophageal reflux disease without esophagitis; Z88.2 Allergy status to sulfonamides; Z88.8 Allergy status to other drugs, medicaments and biological substances; Z91.018 Allergy to other foods; Z79.51 Long term (current) use of inhaled steroids; Z79.2 Long term (current) use of antibiotics; Z79.84 Long term (current) use of oral hypoglycemic drugs; Z79.52 Long term (current) use of systemic steroids; Z79.810 Long term (current) use of selective estrogen receptor modulators (SERMs); Z79.4 Long term (current) use of insulin; Z79.899 Other long term (current) drug therapy

== ENCOUNTER → 2024-06-01 | Outpatient (REF) | payer MEDICARE, MEDICAID ==
[~2024-06-01] MED LIST changes: +DARI25TA
[2024-06-01 19:24] LABS: BASO # 0.1 10^3/uL (0.0-0.2); BASO % 0.7 % (0.0-1.0); EOS # 0.3 10^3/uL (0.0-0.5); EOS % 3.1 % (0.0-3.0); HEMATOCRIT 42.9 % (36.0-47.0); HEMOGLOBIN 14.1 g/dl (12.0-15.5); LYMPH # 3.8 10^3/uL (1.5-5.0); MEAN CORPUSCULAR HEMOGLOBIN 30.3 pg (27.0-33.0); MEAN CORPUSCULAR HGB CONC 32.9 g/dl (32.0-36.5); MEAN CORPUSCULAR VOLUME 92.3 fl (80.0-96.0); MONO # 0.5 10^3/uL (0.0-0.8); MONO % 6.5 % (2.0-8.0); NEUTROPHILS # 3.7 10^3/uL (1.5-8.5); NEUTROPHILS % 44.6 % (36.0-66.0); PLATELET COUNT, AUTOMATED 297 10^3/uL (150-450); RED BLOOD COUNT 4.65 10^6/uL (4.00-5.40); WHITE BLOOD COUNT 8.3 10^3/uL (4.0-10.0)
[2024-06-01 19:50] LABS: HEMOGLOBIN A1c 6.5 % (4.0-6.0)
[2024-06-01 19:54] LABS: FREE T4 1.06 NG/DL (0.89-1.76)
[2024-06-01 20:04] LABS: ALBUMIN 4.1 G/DL (3.2-5.2); ALKALINE PHOSPHATASE 68 U/L (35-104); ALT/SGPT 119 U/L (7.0-40); AST/SGOT 121 U/L (<34); BILIRUBIN,TOTAL 1.3 MG/DL (0.3-1.2); BLOOD UREA NITROGEN 19 MG/DL (9-23); CALCIUM LEVEL 10.2 MG/DL (8.3-10.6); CARBON DIOXIDE LEVEL 28 MMOL/L (20-31); CHLORIDE LEVEL 98 MMOL/L (98-107); CHOLESTEROL LEVEL 98 MG/DL (<200); CHOLESTEROL RISK RATIO 2.23 (<5); CREATININE FOR GFR 0.82 MG/DL (0.55-1.30); FERRITIN 38.3 NG/ML (7.3-270.7); GLOMERULAR FILTRATION RATE > 60.0 (>45); GLUCOSE, FASTING 81 MG/DL (74-106); HDL CHOLESTEROL 43.8 MG/DL (>40); LDL CHOLESTEROL 18.2 MG/DL (<100); MAGNESIUM LEVEL 1.9 MG/DL (1.8-2.4); NON-HDL-C 54.2 MG/DL; PTH INTACT 27.3 PG/ML (18.5-88.0); SODIUM LEVEL 137 MMOL/L (136-145); TOTAL 25(OH) VITAMIN D 86.6 NG/ML (20.0-100.0); TOTAL PROTEIN 7.2 G/DL (5.7-8.2); TRIGLYCERIDES LEVEL 180 MG/DL (<150)
== END ==
LOC: M LABDRAWP 16:41
PROVIDERS: ATTEND Family Medicine
DX: D50.9 Iron deficiency anemia, unspecified (principal); E55.9 Vitamin D deficiency, unspecified; G89.4 Chronic pain syndrome; E11.9 Type 2 diabetes mellitus without complications; I50.32 Chronic diastolic (congestive) heart failure; E78.5 Hyperlipidemia, unspecified

== ENCOUNTER → 2024-06-14 | Outpatient (CLI) | payer MEDICARE, MEDICAID | LOC: M PLAIMG 13:31 | PROVIDERS: ATTEND Physician Assistant | DX: M16.12 Unilateral primary osteoarthritis, left hip (principal) ==

== ENCOUNTER → 2024-10-02 | Outpatient (CLI) | payer MEDICARE, MEDICAID ==
[~2024-10-02] MED LIST changes: -AMBI5TAB PO; -FLOM0.4C39 PO; +LIDO1ADH93 TD; -LIDO5DIS41 TD; -RA S8.6T3 PO; +SENN18TA PO; +TAMS-18 PO; +ZOLP-532 PO
[2024-10-02 15:42] LABS: BASO # 0.1 10^3/uL (0.0-0.2); BASO % 1.1 % (0.0-1.0); EOS # 0.5 10^3/uL (0.0-0.5); EOS % 8.2 % (0.0-3.0); LYMPH # 2.2 10^3/uL (1.5-5.0); LYMPH % 38.3 % (24.0-44.0); MONO # 0.4 10^3/uL (0.0-0.8); MONO % 7.1 % (2.0-8.0); NEUTROPHILS # 2.5 10^3/uL (1.5-8.5); NEUTROPHILS % 45.1 % (36.0-66.0); PLATELET COUNT, AUTOMATED 190 10^3/uL (150-450)
[2024-10-02 16:00] LABS: ESTIMATED AVERAGE GLUCOSE 131.0 MG/DL (60-110)
[2024-10-02 16:08] LABS: TOTAL 25(OH) VITAMIN D 84.3 NG/ML (20.0-100.0)
[2024-10-02 16:10] LABS: FREE T4 1.57 NG/DL (0.89-1.76)
[2024-10-02 16:17] LABS: ALT/SGPT 112.0 U/L (7.0-40); AST/SGOT 111.0 U/L (<34); CALCIUM LEVEL 9.6 MG/DL (8.3-10.6); CARBON DIOXIDE LEVEL 23.0 MMOL/L (20-31); CHLORIDE LEVEL 104.0 MMOL/L (98-107); CHOLESTEROL LEVEL 70.0 MG/DL (<200); CHOLESTEROL RISK RATIO 1.86 (<5); CREATININE FOR GFR 0.93 MG/DL (0.55-1.30); GLOMERULAR FILTRATION RATE 67.0 (>45); LDL CHOLESTEROL 11.7 MG/DL (<100); MAGNESIUM LEVEL 1.8 MG/DL (1.8-2.4); NON-HDL-C 32.5 MG/DL; POTASSIUM SERUM 3.9 MMOL/L (3.5-5.1); PTH INTACT 50.8 PG/ML (18.5-88.0); SODIUM LEVEL 144.0 MMOL/L (136-145); TRIGLYCERIDES LEVEL 104.0 MG/DL (<150)
== END ==
LOC: M PLALAB 13:13
PROVIDERS: ATTEND Family Medicine
DX: D50.9 Iron deficiency anemia, unspecified (principal); E78.5 Hyperlipidemia, unspecified; E11.9 Type 2 diabetes mellitus without complications; I50.32 Chronic diastolic (congestive) heart failure; E55.9 Vitamin D deficiency, unspecified; E03.9 Hypothyroidism, unspecified; K74.00 Hepatic fibrosis, unspecified

== ENCOUNTER → 2024-10-17 | Outpatient (CLI) | payer MEDICARE, MEDICAID ==
[~2024-10-17] MED LIST changes: +CARA1TAB6 PO; +DARI25TA PO; +NITR0.4S14 SL; +PROTPAK PO; +VITA1CAP25 PO
== END ==
LOC: M WHC 13:09
PROVIDERS: ATTEND Family Medicine
DX: Z12.31 Encounter for screening mammogram for malignant neoplasm of breast (principal); M85.89 Other specified disorders of bone density and structure, multiple sites; R92.323 Mammographic fibroglandular density, bilateral breasts

== ENCOUNTER 2024-10-25 19:42 | Observation (INO) | payer MEDICARE, MEDICAID ==
[~2024-10-25] VITALS: Ht 167.6 cm; Wt 77.5 kg
[~2024-10-25 19:42] MED LIST changes: -CARA1TAB6 PO; -DARI25TA PO; -ISOVUE-370 76% 100 ML VIAL As Ordered ONE; -NITR0.4S14 SL; -PROTPAK PO; -VITA1CAP25 PO
[2024-10-25 20:38] LABS: BASO # 0.1 10^3/uL (0.0-0.2); BASO % 0.9 % (0.0-1.0); EOS # 0.7 10^3/uL (0.0-0.5); EOS % 10.0 % (0.0-3.0); LYMPH # 3.0 10^3/uL (1.5-5.0); LYMPH % 45.7 % (24.0-44.0); MONO # 0.4 10^3/uL (0.0-0.8); MONO % 6.1 % (2.0-8.0); NEUTROPHILS # 2.5 10^3/uL (1.5-8.5); NEUTROPHILS % 37.1 % (36.0-66.0); PLATELET COUNT, AUTOMATED 235 10^3/uL (150-450)
[2024-10-25 21:00] LABS: CK-MB VALUE MASS 2.0 NG/ML (<3.6)
[2024-10-25 21:01] LABS: CALCIUM LEVEL 9.1 MG/DL (8.3-10.6); CARBON DIOXIDE LEVEL 25 MMOL/L (20-31); CHLORIDE LEVEL 107 MMOL/L (98-107); CPK CREATINE PHOSPHOKINASE 69 U/L (34-145); CREATININE FOR GFR 0.86 MG/DL (0.55-1.30); GLOMERULAR FILTRATION RATE 73.5 (>45); MB/CK RELATIVE INDEX 2.89 (< OR =4); POTASSIUM SERUM 5.1 MMOL/L (3.5-5.1); SODIUM LEVEL 144 MMOL/L (136-145)
[2024-10-25 22:00] LABS: CK-MB VALUE MASS 2.0 NG/ML (<3.6); CPK CREATINE PHOSPHOKINASE 80 U/L (34-145); MB/CK RELATIVE INDEX 2.50 (< OR =4)
[2024-10-25] MEDS: ALBUTEROL SULFATE 2.5 MG/0.5 ML INH CONCENTRATE NEB SOLN INH ONE (22:18)
[2024-10-25] MEDS: IPRATROPIUM 0.5 MG/ALBUTEROL 2.5 MG INH SOL UD 3 ML NEB ONE (22:18)
[2024-10-26] MEDS ORDERED: MAALOX 30 ML SUSP *UDC PO PRN (02:25)
[2024-10-26] MEDS ORDERED: GLUCOSE 4 GM CHEW PO PRN (02:25)
[2024-10-26] MEDS ORDERED: DEXTROSE 50% 50 ML SYRINGE IV PRN (02:25)
[2024-10-26] MEDS ORDERED: GLUCAGON INJ 1 MG VIAL SC PRN (02:25)
[2024-10-26] MEDS ORDERED: MOM 30 ML SUSPENSION UDC PO PRN (02:25)
[2024-10-26] MEDS: ENOXAPARIN 80 MG/0.8 ML SYRINGE (J1650 PER 10MG) SC ONE (03:57)
[2024-10-26] MEDS ORDERED: ISOVUE-370 76% 100 ML VIAL As Ordered ONE (06:48)
[2024-10-26] MEDS: INSULIN LISPRO (NovoLOG) PER UNIT SC SCH ×2 (07:30→21:00)
[2024-10-26] MEDS ORDERED: VITA1CAP25 PO (08:16)
[2024-10-26] MEDS ORDERED: CEFD1CAP9 PO (08:16)
[2024-10-26] MEDS ORDERED: PANT40TA29 PO (08:16)
[2024-10-26] MEDS ORDERED: ALBU2.5V10 NEB (08:16)
[2024-10-26] MEDS ORDERED: DARI25TA PO (08:16)
[2024-10-26] MEDS ORDERED: HOME MED LIST COMPLETE! XX SCH (08:20)
[2024-10-26] MEDS: DOCUSATE SODIUM 100 MG CAPSULE PO SCH (08:56)
[2024-10-26 08:58] LABS: BASO # 0.0 10^3/uL (0.0-0.2); BASO % 0.3 % (0.0-1.0); EOS # 0.0 10^3/uL (0.0-0.5); EOS % 0.0 % (0.0-3.0); LYMPH # 1.1 10^3/uL (1.5-5.0); LYMPH % 15.6 % (24.0-44.0); MONO # 0.1 10^3/uL (0.0-0.8); MONO % 1.3 % (2.0-8.0); NEUTROPHILS # 5.6 10^3/uL (1.5-8.5); NEUTROPHILS % 82.5 % (36.0-66.0); PLATELET COUNT, AUTOMATED 242 10^3/uL (150-450)
[2024-10-26 09:26] LABS: ALT/SGPT 40 U/L (7.0-40); AST/SGOT 38 U/L (<34); CALCIUM LEVEL 9.1 MG/DL (8.3-10.6); CARBON DIOXIDE LEVEL 26 MMOL/L (20-31); CHLORIDE LEVEL 107 MMOL/L (98-107); CHOLESTEROL LEVEL 121 MG/DL (<200); CHOLESTEROL RISK RATIO 2.42 (<5); CREATININE FOR GFR 0.62 MG/DL (0.55-1.30); GLOMERULAR FILTRATION RATE > 90.0 (>45); LDL CHOLESTEROL 59.7 MG/DL (<100); NON-HDL-C 71.1 MG/DL; POTASSIUM SERUM 4.6 MMOL/L (3.5-5.1); SODIUM LEVEL 142 MMOL/L (136-145); TRIGLYCERIDES LEVEL 57 MG/DL (<150)
[2024-10-26 09:30] LABS: CK-MB VALUE MASS 1.5 NG/ML (<3.6); MYOGLOBIN 25.0 NG/ML (<110)
[2024-10-26 09:33] LABS: CPK CREATINE PHOSPHOKINASE 65 U/L (34-145); MB/CK RELATIVE INDEX 2.30 (< OR =4)
[2024-10-26 09:45] LABS: ESTIMATED AVERAGE GLUCOSE 134.0 MG/DL (60-110)
[2024-10-26] MEDS: ACETAMINOPHEN *IV* 1,000 MG in IV 1 EA IV ONE (11:18)
[2024-10-26 15:30] VITALS: BP 115/72; TEMP 97.9; O2SAT 97
[2024-10-26] MEDS: ACETAMINOPHEN 325 MG TAB PO PRN (17:06)
[2024-10-26] MEDS ORDERED: ALBUTEROL 90 MCG/ACT 8 GM HFA INHALER INH PRN (17:30)
[2024-10-26 20:35] VITALS: BP 115/70; TEMP 98.6; O2SAT 95
[2024-10-26] MEDS: CEFDINIR 300 MG CAP PO SCH (22:06)
[2024-10-26] MEDS: POTASSIUM CHLORIDE 10MEQ SR TABLET PO SCH (22:06)
[2024-10-26] MEDS: AMITRIPTYLINE 25 MG TABLET PO SCH (22:06)
[2024-10-26] MEDS: RAMELTEON 8 MG TAB PO SCH (22:06)
[2024-10-26] MEDS: MAGNESIUM OXIDE 400 MG TAB PO SCH (22:07)
[2024-10-26] MEDS: BACLOFEN 10 MG TAB PO SCH (22:07)
[2024-10-26] MEDS: GABAPENTIN 300 MG CAP PO SCH (22:07)
[2024-10-26] MEDS: SENNOSIDES/DOCUSATE SODIUM 8.6 MG/50MG TAB PO SCH (22:07)
[2024-10-27 00:24] VITALS: BP 113/63; TEMP 98.2; O2SAT 95
[2024-10-27 03:22] VITALS: BP 110/64; TEMP 97.9; O2SAT 95
[2024-10-27] MEDS: LEVOTHYROXINE 50 MCG TABLET (0.05 MG) PO SCH (05:48)
[2024-10-27 06:26] LABS: PLATELET COUNT, AUTOMATED 234 10^3/uL (150-450)
[2024-10-27 06:57] LABS: CALCIUM LEVEL 8.5 MG/DL (8.3-10.6); CARBON DIOXIDE LEVEL 26 MMOL/L (20-31); CHLORIDE LEVEL 107 MMOL/L (98-107); CREATININE FOR GFR 0.64 MG/DL (0.55-1.30); GLOMERULAR FILTRATION RATE > 90.0 (>45); POTASSIUM SERUM 4.1 MMOL/L (3.5-5.1); SODIUM LEVEL 143 MMOL/L (136-145)
[2024-10-27 08:00] VITALS: BP 125/71; TEMP 97.5; O2SAT 95
[2024-10-27] MEDS: LIDOCAINE 5% PATCH TOP SCH (08:09)
[2024-10-27] MEDS: ROSUVASTATIN 10 MG TAB PO SCH (08:10)
[2024-10-27] MEDS: ESCITALOPRAM OXALATE 10 MG TABLET PO SCH (08:11)
[2024-10-27] MEDS: INDAPAMIDE 1.25 MG TABLET PO SCH (08:11)
[2024-10-27] MEDS: FOLIC ACID 1 MG TAB PO SCH (08:11)
[2024-10-27] MEDS: PANTOPRAZOLE 40MG TAB PO SCH (08:12)
[2024-10-27] MEDS ORDERED: PROTPAK PO (09:13)
[2024-10-27] MEDS ORDERED: NITR0.4S14 SL (09:13)
[2024-10-27] MEDS ORDERED: CARA1TAB6 PO (09:13)
[2024-10-27 09:29] LABS: CK-MB VALUE MASS < 1.0 NG/ML (<3.6)
[2024-10-27 09:30] LABS: CPK CREATINE PHOSPHOKINASE 44 U/L (34-145)
[2024-10-27 12:00] VITALS: BP 120/71; TEMP 97.7; O2SAT 95
== END 2024-10-27 14:49 | disposition home or self-care (01) ==
LOC: M ED 19:42 → M ED INP 10-26 02:22 → M MSPAV 10-26 15:25
PROVIDERS: ADMIT Student in an Organized Health Care Education/Training Program; ATTEND General Practice
DX: R07.9 Chest pain, unspecified (principal); M79.602 Pain in left arm; R00.2 Palpitations; R06.02 Shortness of breath; R51.9 Headache, unspecified; I11.0 Hypertensive heart disease with heart failure; E03.9 Hypothyroidism, unspecified; E78.5 Hyperlipidemia, unspecified; D50.9 Iron deficiency anemia, unspecified; E11.51 Type 2 diabetes mellitus with diabetic peripheral angiopathy without gangrene; Z86.711 Personal history of pulmonary embolism; G47.33 Obstructive sleep apnea (adult) (pediatric); K21.9 Gastro-esophageal reflux disease without esophagitis; F32.A Depression, unspecified; E55.9 Vitamin D deficiency, unspecified; I50.22 Chronic systolic (congestive) heart failure; J45.909 Unspecified asthma, uncomplicated; K74.60 Unspecified cirrhosis of liver; R32 Unspecified urinary incontinence; M79.7 Fibromyalgia; Z90.79 Acquired absence of other genital organ(s); Z90.89 Acquired absence of other organs; Z90.49 Acquired absence of other specified parts of digestive tract; Z80.9 Family history of malignant neoplasm, unspecified; Z88.2 Allergy status to sulfonamides; Z88.8 Allergy status to other drugs, medicaments and biological substances; Z88.1 Allergy status to other antibiotic agents
CPT/HCPCS: 36415; 71045; 71275; 80048; 80053; 80061; 82150; 82550; 82553; 83036; 83605; 83690; 83874; 84145; 84443; 84484; 85025; 85027; 87486; 87581; 87633; 87798; 93005; 93041; 93306; 93970; 94640; 94760; 96365; 96366; 96372; 96375; 97161; 97530; 99285; G0378; J0131; J1100; J1650; J1815; J2765; Q9967

== ENCOUNTER → 2024-10-25 | Outpatient (CLI) | payer MEDICARE, MEDICAID ==
[~2024-10-25] MED LIST changes: +ISOVUE-370 76% 100 ML VIAL As Ordered ONE
== END ==
LOC: M RAD 14:17
PROVIDERS: ATTEND Family Medicine
DX: R16.0 Hepatomegaly, not elsewhere classified (principal); N28.1 Cyst of kidney, acquired
CPT/HCPCS: 74178; Q9967

== ENCOUNTER 2024-10-31 10:04 | Outpatient (CLI) | payer MEDICARE, MEDICAID ==
[~2024-10-31] VITALS: Ht 167.6 cm; Wt 81.8 kg
[~2024-10-31 10:04] MED LIST changes: +ALBUTEROL SULFATE 2.5 MG/0.5 ML INH CONCENTRATE NEB SOLN INH PRN; +CARA1TAB6 PO; +DARI25TA PO; +EPINEPHrine INJ 1 MG/ML 1ML AMP IM PRN; +NITR0.4S14 SL; +PROTPAK PO; +VITA1CAP25 PO; +diphenhydrAMINE 50 MG/ML VIAL IV PRN
[2024-10-31 10:20] VITALS: BP 142/74; O2SAT 95
[2024-10-31] MEDS: IRON SUCROSE 500 MG in NS 250 ML OVER 4 HRS IV ONE (10:21)
[2024-10-31 11:30] VITALS: BP 122/69; O2SAT 98
[2024-10-31 12:30] VITALS: BP 129/71; O2SAT 98
[2024-10-31 13:30] VITALS: BP 133/84; O2SAT 98
[2024-10-31 14:30] VITALS: BP 142/60; O2SAT 96
== END 2024-10-31 15:40 ==
LOC: M INFU 10:04
PROVIDERS: ATTEND Family Medicine
DX: D50.9 Iron deficiency anemia, unspecified (principal); Z88.2 Allergy status to sulfonamides; Z88.8 Allergy status to other drugs, medicaments and biological substances; Z91.018 Allergy to other foods
CPT/HCPCS: 96365; 96366; J1756

== ENCOUNTER 2024-11-16 09:24 | Outpatient (CLI) | payer MEDICARE, MEDICAID ==
[~2024-11-16] VITALS: Ht 167.6 cm; Wt 81.8 kg
[~2024-11-16 09:24] MED LIST changes: +IRON SUCROSE 500 MG in NS 250 ML OVER 4 HRS IV ONE
[2024-11-16 10:44] VITALS: BP 135/70; O2SAT 98
[2024-11-16] MEDS: IRON SUCROSE 500 MG in NS 250 ML OVER 4 HRS IV ONE (10:58)
[2024-11-16 12:00] VITALS: BP 133/71; O2SAT 96
[2024-11-16 13:00] VITALS: BP 130/80; O2SAT 98
[2024-11-16 14:00] VITALS: BP 129/81; O2SAT 97
[2024-11-16 15:40] VITALS: BP 129/66; O2SAT 96
== END 2024-11-16 15:45 ==
LOC: M INFU 09:24
PROVIDERS: ATTEND Family Medicine
DX: D50.9 Iron deficiency anemia, unspecified (principal); Z88.2 Allergy status to sulfonamides; Z88.8 Allergy status to other drugs, medicaments and biological substances
CPT/HCPCS: 96365; 96366; J1756

== ENCOUNTER 2025-02-06 03:29 | Observation (INO) | payer MEDICARE, MEDICAID ==
[~2025-02-06] VITALS: Ht 167.6 cm; Wt 85.5 kg
[~2025-02-06 03:29] MED LIST changes: -ALBUTEROL SULFATE 2.5 MG/0.5 ML INH CONCENTRATE NEB SOLN INH PRN; -EPINEPHrine INJ 1 MG/ML 1ML AMP IM PRN; -IRON SUCROSE 500 MG in NS 250 ML OVER 4 HRS IV ONE; -diphenhydrAMINE 50 MG/ML VIAL IV PRN
[2025-02-06 05:03] LABS: BASO # 0.1 10^3/uL (0.0-0.2); BASO % 1.4 % (0.0-1.0); EOS # 0.4 10^3/uL (0.0-0.5); EOS % 8.0 % (0.0-3.0); LYMPH # 2.7 10^3/uL (1.5-5.0); LYMPH % 53.2 % (24.0-44.0); MONO # 0.3 10^3/uL (0.0-0.8); MONO % 5.2 % (2.0-8.0); NEUTROPHILS # 1.7 10^3/uL (1.5-8.5); NEUTROPHILS % 32.0 % (36.0-66.0); PLATELET COUNT, AUTOMATED 184 10^3/uL (150-450)
[2025-02-06 05:25] LABS: ETHYL ALCOHOL (ETHANOL) < 0.003 % (0.000-0.010)
[2025-02-06 05:26] LABS: CPK CREATINE PHOSPHOKINASE 212 U/L (34-145)
[2025-02-06 05:27] LABS: SALICYLATE LEVEL < 3.0 MG/DL (<30)
[2025-02-06 05:38] LABS: ALT/SGPT 116 U/L (7.0-40); AST/SGOT 73 U/L (<34); CALCIUM LEVEL 9.9 MG/DL (8.3-10.6); CARBON DIOXIDE LEVEL 28 MMOL/L (20-31); CHLORIDE LEVEL 107 MMOL/L (98-107); CK-MB VALUE MASS 3.5 NG/ML (<3.6); CREATININE FOR GFR 0.83 MG/DL (0.55-1.30); GLOMERULAR FILTRATION RATE 76.7 (>45); MB/CK RELATIVE INDEX 1.65 (< OR =4); POTASSIUM SERUM 6.2 MMOL/L (3.5-5.1); SODIUM LEVEL 140 MMOL/L (136-145)
[2025-02-06 05:38] LABS: ABG BASE EXCESS -2.1 (-2.0-2.0); ABG HCO3 24.6 MMOL/L (22.0-26.0); ABG O2 SATURATION 95.9 % (95.0-99.0); ABG PARTIAL PRESSURE CO2 49.9 mmHg (35.0-45.0); ABG PARTIAL PRESSURE O2 80.9 mmHg (75.0-100.0); ABG STANDARD HCO3 22.7 MMOL/L. (22.0-26.0); ABG TOTAL CO2 26.1 MMOL/L (23.0-31.0); ABG pH (ARTERIAL) 7.310 UNITS (7.350-7.450)
[2025-02-06 05:59] LABS: OSMOLALITY SERUM 299 MOSM/KG (280-301)
[2025-02-06 06:00] LABS: KETONE, URINE AUTO RFX TRACE mg/dL (NEGATIVE); LEUKOCYTE ESTERASE UR AUTO RFX NEGATIVE (NEGATIVE); RBC, URINE AUTO RFX 1 /HPF (0-3); SQUAM EPITHELIAL CELL UR AURFX 0 /HPF (0-6); WBC, URINE AUTO RFX 1 /HPF (0-3)
[2025-02-06 06:05] LABS: NITRITE, URINE AUTO RFX POSITIVE (NEGATIVE)
[2025-02-06 06:28] LABS: AMPHETAMINES LEVEL URINE NEGATIVE (NEGATIVE); BARBITURATES URINE NEGATIVE (NEGATIVE); BENZODIAZEPINES URINE NEGATIVE (NEGATIVE); CANNABINOIDS URINE NEGATIVE (NEGATIVE); COCAINE METABOLITE URINE NEGATIVE (NEGATIVE); METHADONE URINE NEGATIVE (NEGATIVE); OPIATES URINE NEGATIVE (NEGATIVE); PHENCYCLIDINE URINE NEGATIVE (NEGATIVE)
[2025-02-06] MEDS: CALCIUM GLUCONATE 1,000 MG/10 ML VIAL IV ONE (06:38)
[2025-02-06] MEDS: DEXTROSE 50% 50 ML SYRINGE IV ONE (06:38)
[2025-02-06] MEDS: HumuLIN R (REGULAR) INSULIN (NovoLIN R) **100 U/ML** PER UNIT IV ONE (06:38)
[2025-02-06] MEDS: NS (Normal Saline) 0.9% 1,000 ML IV ONE ×2 (06:38→08:20)
[2025-02-06] MEDS: ADVAIR HFA 230/21 MCG INHALER INH SCH (08:00)
[2025-02-06] MEDS: PATIROMER SORBITEX CALCIUM 8.4GM POWDER PACKET PO ONE (08:19)
[2025-02-06 08:33] LABS: CK-MB VALUE MASS 2.6 NG/ML (<3.6)
[2025-02-06 08:43] LABS: CPK CREATINE PHOSPHOKINASE 173.0 U/L (34-145); MB/CK RELATIVE INDEX 1.5 (< OR =4)
[2025-02-06 08:53] LABS: CALCIUM LEVEL 9.0 MG/DL (8.3-10.6); CARBON DIOXIDE LEVEL 28.0 MMOL/L (20-31); CHLORIDE LEVEL 111.0 MMOL/L (98-107); CREATININE FOR GFR 0.75 MG/DL (0.55-1.30); GLOMERULAR FILTRATION RATE 86.7 (>45); POTASSIUM SERUM 4.0 MMOL/L (3.5-5.1); SODIUM LEVEL 147.0 MMOL/L (136-145)
[2025-02-06] MEDS ORDERED: SOD POLYSTYRENE SULFONATE SUSP 30GM 120ML ENEMA PR ONE (09:00)
[2025-02-06] MEDS ORDERED: MOM 30 ML SUSPENSION UDC PO PRN (09:15)
[2025-02-06] MEDS ORDERED: DEXTROSE 50% 50 ML SYRINGE IV PRN (09:25)
[2025-02-06] MEDS ORDERED: GLUCOSE 4 GM CHEW PO PRN (09:25)
[2025-02-06] MEDS ORDERED: GLUCAGON INJ 1 MG VIAL SC PRN (09:25)
[2025-02-06] MEDS ORDERED: SUCR1TA PO (10:44)
[2025-02-06] MEDS ORDERED: PANT40TA29 PO (10:44)
[2025-02-06] MEDS ORDERED: NITR4TASL SL (10:44)
[2025-02-06] MEDS ORDERED: HOME MED LIST COMPLETE! XX SCH (10:50)
[2025-02-06 11:25] VITALS: BP 118/69; TEMP 97.5; O2SAT 98
[2025-02-06 12:00] VITALS: O2SAT 97
[2025-02-06] MEDS ORDERED: ALBUTEROL 90 MCG/ACT 8 GM HFA INHALER INH PRN (12:00)
[2025-02-06] MEDS: INSULIN LISPRO (NovoLOG) PER UNIT SC SCH ×2 (12:00→21:00)
[2025-02-06] MEDS ORDERED: ALBUTEROL SULFATE 2.5 MG/0.5 ML INH CONCENTRATE NEB SOLN NEB PRN (12:00)
[2025-02-06] MEDS ORDERED: NITROGLYCERIN 0.4 MG SUBL TABLET SL PRN (12:00)
[2025-02-06] MEDS ORDERED: ROSU20TA86 PO (14:11)
[2025-02-06] MEDS: LIDOCAINE 5% PATCH TOP SCH (14:27)
[2025-02-06] MEDS: NS (Normal Saline) 0.9% 1,000 ML IV SCH (14:28)
[2025-02-06] MEDS: SUCRALFATE 1 GM TAB PO SCH (14:29)
[2025-02-06] MEDS: MAGNESIUM OXIDE 400 MG TAB PO SCH (14:30)
[2025-02-06] MEDS: FOLIC ACID 1 MG TAB PO SCH (14:30)
[2025-02-06] MEDS: ESCITALOPRAM OXALATE 10 MG TABLET PO SCH (14:30)
[2025-02-06] MEDS: PANTOPRAZOLE 40MG TAB PO SCH (14:30)
[2025-02-06] MEDS: BACLOFEN 10 MG TAB PO SCH (14:31)
[2025-02-06] MEDS: LEVOTHYROXINE 50 MCG TABLET (0.05 MG) PO SCH (14:31)
[2025-02-06] MEDS: GABAPENTIN 300 MG CAP PO SCH (14:31)
[2025-02-06] MEDS: ROSUVASTATIN 10 MG TAB PO SCH (18:07)
[2025-02-06 18:12] VITALS: BP 91/55
[2025-02-06 19:32] VITALS: BP 95/50; TEMP 98; O2SAT 94
[2025-02-06] MEDS: AMITRIPTYLINE 25 MG TABLET PO SCH (20:19)
[2025-02-06] MEDS: METHENAMINE HIPPURATE 1 GM TABLET PO SCH (20:19)
[2025-02-06] MEDS: RAMELTEON 8 MG TAB PO SCH (20:20)
[2025-02-06] MEDS: SENNOSIDES/DOCUSATE SODIUM 8.6 MG/50MG TAB PO SCH (20:20)
[2025-02-07 04:55] VITALS: BP 111/61; TEMP 97.4; O2SAT 94
[2025-02-07 07:42] LABS: CALCIUM LEVEL 8.6 MG/DL (8.3-10.6); CARBON DIOXIDE LEVEL 28 MMOL/L (20-31); CHLORIDE LEVEL 109 MMOL/L (98-107); CREATININE FOR GFR 0.54 MG/DL (0.55-1.30); GLOMERULAR FILTRATION RATE > 90.0 (>45); IRON (FE) 66 UG/DL (50-170); MAGNESIUM LEVEL 1.6 MG/DL (1.8-2.4); POTASSIUM SERUM 3.8 MMOL/L (3.5-5.1); SODIUM LEVEL 147 MMOL/L (136-145)
[2025-02-07] MEDS: MAG SULF 1GM/100ML (MAG RUN) 1 GM in IV 1 EA IV SCH ×2 (08:46→17:25)
[2025-02-07] MEDS: ENOXAPARIN 40 MG/0.4 ML SYRINGE (J1650 PER 10MG) SC SCH (08:47)
[2025-02-07] MEDS: D5W 1,000 ML IV SCH (08:51)
[2025-02-07] MEDS ORDERED: METH-1100 PO (11:01)
[2025-02-07 15:08] LABS: CALCIUM LEVEL 8.0 MG/DL (8.3-10.6); CARBON DIOXIDE LEVEL 28 MMOL/L (20-31); CHLORIDE LEVEL 109 MMOL/L (98-107); CREATININE FOR GFR 0.57 MG/DL (0.55-1.30); GLOMERULAR FILTRATION RATE > 90.0 (>45); POTASSIUM SERUM 3.3 MMOL/L (3.5-5.1); SODIUM LEVEL 146 MMOL/L (136-145)
[2025-02-07] MEDS: ACETAMINOPHEN 325 MG TAB PO PRN (15:14)
[2025-02-07] MEDS ORDERED: POTASSIUM CHLORIDE 10MEQ SR TABLET PO ONE (15:50)
[2025-02-07] MEDS: POTASSIUM CHLORIDE 10MEQ SR TABLET PO ONE ×2 (17:24→21:32)
[2025-02-07 20:00] VITALS: BP 97/52; TEMP 97.9; O2SAT 95
[2025-02-07] MEDS: KCL 10MEQ/100ML SWI (KRUN) 10 MEQ in IV 1 EA IV SCH (20:00)
[2025-02-08 04:00] VITALS: BP 118/66; TEMP 97.7; O2SAT 95
[2025-02-08 06:26] LABS: CALCIUM LEVEL 8.0 MG/DL (8.3-10.6); CARBON DIOXIDE LEVEL 28 MMOL/L (20-31); CHLORIDE LEVEL 111 MMOL/L (98-107); CREATININE FOR GFR 0.68 MG/DL (0.55-1.30); GLOMERULAR FILTRATION RATE > 90.0 (>45); MAGNESIUM LEVEL 1.7 MG/DL (1.8-2.4); POTASSIUM SERUM 4.3 MMOL/L (3.5-5.1); SODIUM LEVEL 146 MMOL/L (136-145)
[2025-02-08 08:02] VITALS: BP 118/66; TEMP 97.7; O2SAT 95
[2025-02-08] MEDS: MAG SULF 1GM/100ML (MAG RUN) 1 GM in IV 1 EA IV SCH (08:28)
[2025-02-08 11:33] VITALS: BP 118/56; TEMP 98.1; O2SAT 98
[2025-02-08] MEDS ORDERED: CEFP100T PO (12:52)
[2025-02-08 15:42] VITALS: BP 129/69
== END 2025-02-08 16:05 | disposition home or self-care (01) ==
LOC: M ED 03:29 → M ED INP 03:30 → M MS4PR 11:25
PROVIDERS: ADMIT Student in an Organized Health Care Education/Training Program; ATTEND Student in an Organized Health Care Education/Training Program
DX: R55 Syncope and collapse (principal); E87.5 Hyperkalemia; E83.42 Hypomagnesemia; E87.1 Hypo-osmolality and hyponatremia; J45.50 Severe persistent asthma, uncomplicated; R82.71 Bacteriuria; N30.90 Cystitis, unspecified without hematuria; B96.20 Unspecified Escherichia coli [E. coli] as the cause of diseases classified elsewhere; Z86.73 Personal history of transient ischemic attack (TIA), and cerebral infarction without residual deficits; E11.9 Type 2 diabetes mellitus without complications; E78.5 Hyperlipidemia, unspecified; I50.32 Chronic diastolic (congestive) heart failure; E03.9 Hypothyroidism, unspecified; F41.9 Anxiety disorder, unspecified; F32.A Depression, unspecified; D50.9 Iron deficiency anemia, unspecified; G47.00 Insomnia, unspecified; M19.90 Unspecified osteoarthritis, unspecified site; M51.9 Unspecified thoracic, thoracolumbar and lumbosacral intervertebral disc disorder; M54.9 Dorsalgia, unspecified; G89.29 Other chronic pain; K21.9 Gastro-esophageal reflux disease without esophagitis; K52.9 Noninfective gastroenteritis and colitis, unspecified; Z87.440 Personal history of urinary (tract) infections; K76.0 Fatty (change of) liver, not elsewhere classified; Z90.49 Acquired absence of other specified parts of digestive tract; Z90.79 Acquired absence of other genital organ(s); Z98.890 Other specified postprocedural states; Z82.49 Family history of ischemic heart disease and other diseases of the circulatory system; Z83.6 Family history of other diseases of the respiratory system; Z83.3 Family history of diabetes mellitus; Z84.19 Family history of other disorders of kidney and ureter; Z80.3 Family history of malignant neoplasm of breast; I44.0 Atrioventricular block, first degree; Z88.1 Allergy status to other antibiotic agents; Z88.2 Allergy status to sulfonamides; Z91.018 Allergy to other foods; Z88.8 Allergy status to other drugs, medicaments and biological substances; Z79.899 Other long term (current) drug therapy; Z79.84 Long term (current) use of oral hypoglycemic drugs; Z79.2 Long term (current) use of antibiotics; Z79.890 Hormone replacement therapy
CPT/HCPCS: 36415; 36600; 51701; 70450; 71045; 72125; 80048; 80076; 80143; 80307; 81001; 82077; 82140; 82550; 82553; 82803; 83540; 83605; 83735; 83930; 84443; 84484; 85025; 87040; 87088; 87186; 87486; 87581; 87633; 87798; 93005; 93041; 94640; 94760; 96361; 96372; 96374; 96375; 96376; 97161; 97165; 97530; 99285; G0378; J0612; J1650; J1815; J3475

== ENCOUNTER → 2025-02-08 | Outpatient (CLI) | payer MEDICARE, MEDICAID ==
[~2025-02-08] MED LIST changes: +CEFP100T PO; +METH-1100 PO; +NITR4TASL SL; +ROSU20TA86 PO; +SUCR1TA PO
== END ==
LOC: M EKG 16:20
PROVIDERS: ATTEND Student in an Organized Health Care Education/Training Program
DX: R55 Syncope and collapse (principal)

== ENCOUNTER → 2025-02-22 | Outpatient (CLI) | payer MEDICARE, MEDICAID ==
[2025-02-22 17:30] LABS: BASO # 0.1 10^3/uL (0.0-0.2); BASO % 1.0 % (0.0-1.0); EOS # 0.4 10^3/uL (0.0-0.5); EOS % 6.6 % (0.0-3.0); LYMPH # 2.7 10^3/uL (1.5-5.0); LYMPH % 44.0 % (24.0-44.0); MONO # 0.4 10^3/uL (0.0-0.8); MONO % 6.2 % (2.0-8.0); NEUTROPHILS # 2.6 10^3/uL (1.5-8.5); NEUTROPHILS % 42.0 % (36.0-66.0); PLATELET COUNT, AUTOMATED 241 10^3/uL (150-450)
[2025-02-22 17:36] LABS: FREE T4 1.21 NG/DL (0.89-1.76)
[2025-02-22 18:08] LABS: ESTIMATED AVERAGE GLUCOSE 128.0 MG/DL (60-110)
[2025-02-22 18:43] LABS: ALT/SGPT 53 U/L (7.0-40); AST/SGOT 59 U/L (<34); CALCIUM LEVEL 9.5 MG/DL (8.3-10.6); CARBON DIOXIDE LEVEL 24 MMOL/L (20-31); CHLORIDE LEVEL 106 MMOL/L (98-107); CHOLESTEROL LEVEL 104 MG/DL (<200); CHOLESTEROL RISK RATIO 1.77 (<5); CREATININE FOR GFR 0.60 MG/DL (0.55-1.30); GLOMERULAR FILTRATION RATE > 90.0 (>45); LDL CHOLESTEROL 28.8 MG/DL (<100); MAGNESIUM LEVEL 1.6 MG/DL (1.8-2.4); NON-HDL-C 45.4 MG/DL; POTASSIUM SERUM 5.0 MMOL/L (3.5-5.1); PTH INTACT 56.1 PG/ML (18.5-88.0); SODIUM LEVEL 141 MMOL/L (136-145); TOTAL 25(OH) VITAMIN D 74.4 NG/ML (20.0-100.0); TRIGLYCERIDES LEVEL 83 MG/DL (<150)
== END ==
LOC: M PLALAB 13:25
PROVIDERS: ATTEND Family Medicine
DX: M75.41 Impingement syndrome of right shoulder (principal); M47.22 Other spondylosis with radiculopathy, cervical region; D50.9 Iron deficiency anemia, unspecified; E55.9 Vitamin D deficiency, unspecified; E78.5 Hyperlipidemia, unspecified; E03.9 Hypothyroidism, unspecified; E11.9 Type 2 diabetes mellitus without complications; I50.32 Chronic diastolic (congestive) heart failure; R17 Unspecified jaundice

== ENCOUNTER → 2025-03-05 | Outpatient (REF) | payer MEDICARE, MEDICAID ==
[2025-03-05 17:30] LABS: APPEARANCE, URINE HAZY (CLEAR); BACTERIA, URINE AUTO 1+ (NEGATIVE); BILIRUBIN, URINE AUTO NEGATIVE (NEGATIVE); BLOOD, URINE BLOOD NEGATIVE (NEGATIVE); GLUCOSE, URINE (UA) AUTO NEGATIVE (NEGATIVE); KETONE, URINE AUTO NEGATIVE (NEGATIVE); LEUKOCYTE ESTERASE, URINE AUTO 1+ (NEGATIVE); MUCUS, URINE SMALL (NEGATIVE); NITRITE, URINE AUTO POSITIVE (NEGATIVE); PROTEIN, URINE AUTO NEGATIVE (NEGATIVE); RBC, URINE AUTO 2 /HPF (0-3); SPECIFIC GRAVITY URINE AUTO 1.016 (1.002-1.035); SQUAMOUS EPITHELIAL CELL UR AU 3 /HPF (0-6); TRANSITIONAL EPITHELIAL AUTO <1 /HPF; UROBILINOGEN, URINE AUTO 0.2 mg/dL (0.0-2.0); WBC, URINE AUTO 12 /HPF (0-3)
== END ==
LOC: M SFHCPLAZ 16:45
PROVIDERS: ATTEND Family Medicine
DX: N39.0 Urinary tract infection, site not specified (principal)